=== PATIENT | female | born 1985 | race Caucasian/White ===

== ENCOUNTER 2022-12-06 01:17 | Emergency (ER) | payer OTHER, SELFPAY ==
[2022-12-06 01:23] VITALS: BP 84/50; PULSE 99; RESP 18; O2SAT 97; BMI 17.5
--- NOTE | 2022-12-06 02:06 | XR_ITS ---
The [address] [address] Patient Name: FRANCINE N JOCE MRN: [facility]:[id number] date: 1985 Sex: F Assigned Patient Location: ER Current Patient Location: ER Accession/Order Number: [id number] Exam Date: 12/06/2022 02:28 Report Date: 12/06/2022 04:51 At the request of: ALESSANDRA BENTLEY Procedure: XR hand LT min 3V EXAM: XR hand LT min 3V 12/06/2022 2:28 AM EDT OH001 CLINICAL STATEMENT: pain COMPARISON: No prior studies are available at the time of dictation. TECHNIQUE: 3 views AP, oblique and lateral views of the left hand are submitted. FINDINGS: The osseous structures are intact and in anatomic alignment. There is no acute fracture and/or dislocation. The joint spaces are preserved. Small subchondral cystic changes of the scaphoid and capitate. Soft tissues are unremarkable. Bone mineralization is within normal limits for the patient's age. IMPRESSION: No acute fracture and/or dislocation. Small subchondral cystic changes of the scaphoid and capitate. Electronically authenticated by: EMILIANA MUNIZ Date: 12/06/2022 04:51
--- NOTE | 2022-12-06 02:06 | CT_ITS ---
The [address] [address] Patient Name: FRANCINE N JOCE MRN: [facility]:[id number] date: 1985 Sex: F Assigned Patient Location: ER Current Patient Location: ER Accession/Order Number: [id number] Exam Date: 12/06/2022 02:28 Report Date: 12/06/2022 04:49 At the request of: ALESSANDRA BENTLEY Procedure: CT cervical spine wo con EXAM: CT cervical spine wo con HISTORY: pain COMPARISON: None. TECHNIQUE: Axial CT images of the cervical spine were obtained without intravenous contrast administration. Reformatted images in coronal and sagittal planes were then acquired using the axial source data. Automated dose lowering techniques and/or adjustment according to patient size were utilized for this examination. FINDINGS: Mild straightening of the normal cervical lordotic curvature. Vertebral body heights are preserved. The dens and atlantodens interval is intact. Normal alignment of the facets visualized. The ring of C1 is intact. The odontoid process is intact. No acute fractures are visualized. Posterior elements are intact. Prevertebral soft tissues appear unremarkable. Sclerotic lesion noted along the right posterior aspect of the C2 vertebral body likely representing a bone island and measures 6.6 mm. Cervical spine alignment is maintained without evidence for spondylolisthesis. The intervertebral disc spaces are grossly preserved. No evidence to suggest high-grade central canal or neuroforaminal narrowing within the cervical spine. The imaged lung apices are clear. IMPRESSION: 1. No acute fracture or traumatic malalignment. Electronically authenticated by: NANCY FAM Date: 12/06/2022 04:49
--- NOTE | 2022-12-06 02:06 | XR_ITS ---
The [address] [address] Patient Name: FRANCINE N JOCE MRN: [facility]:[id number] date: 1985 Sex: F Assigned Patient Location: ER Current Patient Location: ER Accession/Order Number: [id number] Exam Date: 12/06/2022 02:28 Report Date: 12/06/2022 04:47 At the request of: ALESSANDRA BENTLEY Procedure: XR forearm RT 2V EXAM: XR forearm RT 2V 12/06/2022 2:28 AM EDT OH001 CLINICAL STATEMENT: pain COMPARISON: No prior studies are available at the time of dictation. TECHNIQUE: AP and lateral views of the right forearm are submitted. FINDINGS: The osseous structures are intact and in anatomic alignment. There is no acute fracture and/or dislocation. The joint spaces are preserved. Soft tissues are unremarkable. Bone mineralization is within normal limits for the patient's age. IMPRESSION: Unremarkable forearm radiograph. Electronically authenticated by: EMILIANA MUNIZ Date: 12/06/2022 04:47
--- NOTE | 2022-12-06 02:06 | XR_ITS ---
The [address] [address] Patient Name: FRANCINE N JOCE MRN: [facility]:[id number] date: 1985 Sex: F Assigned Patient Location: ER Current Patient Location: ER Accession/Order Number: [id number] Exam Date: 12/06/2022 02:28 Report Date: 12/06/2022 04:40 At the request of: ALESSANDRA BENTLEY Procedure: XR chest 1V EXAM: XR chest 1V 12/06/2022 2:28 AM EDT OH001 CLINICAL STATEMENT: pain COMPARISON: No prior studies are available at the time of dictation. TECHNIQUE: Single AP radiograph of the chest is submitted. FINDINGS: There is no acute airspace disease. The cardiac silhouette is normal. The costophrenic recesses are sharp. No pneumothorax. The bony elements are unremarkable. IMPRESSION: No acute cardiopulmonary process. Electronically authenticated by: EMILIANA MUNIZ Date: 12/06/2022 04:40
--- NOTE | 2022-12-06 02:06 | XR_ITS ---
The [address] [address] Patient Name: FRANCINE N JOCE MRN: [facility]:[id number] date: 1985 Sex: F Assigned Patient Location: ER Current Patient Location: ER Accession/Order Number: [id number] Exam Date: 12/06/2022 02:28 Report Date: 12/06/2022 04:53 At the request of: ALESSANDRA BENTLEY Procedure: XR wrist RT min 3V EXAM: XR wrist RT min 3V 12/06/2022 2:28 AM EDT OH001 CLINICAL STATEMENT: pain COMPARISON: No prior studies are available at the time of dictation. TECHNIQUE: AP and lateral views of the right wrist are submitted. FINDINGS: The osseous structures are intact and in anatomic alignment. There is no acute fracture and/or dislocation. The joint spaces are preserved. Soft tissues are unremarkable. Bone mineralization is within normal limits for the patient's age. IMPRESSION: Unremarkable wrist radiograph. Electronically authenticated by: EMILIANA MUNIZ Date: 12/06/2022 04:53
--- NOTE | 2022-12-06 02:06 | CT_ITS ---
The [address] [address] Patient Name: FRANCINE N JOCE MRN: [facility]:[id number] date: 1985 Sex: F Assigned Patient Location: ER Current Patient Location: ER Accession/Order Number: [id number] Exam Date: 12/06/2022 02:28 Report Date: 12/06/2022 04:56 At the request of: ALESSANDRA BENTLEY Procedure: CT head/brain wo con EXAM: CT head/brain wo con HISTORY: pain COMPARISON: None. TECHNIQUE: Axial CT images of the brain were obtained without contrast. Dose reduction techniques were achieved by using automated exposure control and/or adjustment of mA and/or kV according to patient size and/or use of iterative reconstruction technique. FINDINGS: Brain parenchyma: No mass effect or midline shift is seen. Sevilla-white differentiation is maintained. No findings suspicious for intracranial hemorrhage. No findings suggesting acute stroke. Ventricles and extra-axial spaces: Ventricles are concordant with sulci. No findings suggesting hydrocephalus. Visualized paranasal sinuses: No findings suggesting acute sinusitis. Mastoid air cells: Clear. Included portions of the orbits:Included portions of the orbits with no evidence of fracture or other acute pathology. Bones: No fracture is seen. IMPRESSION: 1. No acute intracranial process visualized. Electronically authenticated by: NANCY FAM Date: 12/06/2022 04:56
--- NOTE | 2022-12-06 02:08 | ED.FALL1 ---
HPI - Fall General Chief Complaint: Head Injury Stated Complaint: UPPER EXTREMITY INJURY LEFT HAND Time Seen by Provider: 12/06/22 01:37 Source: patient Mode of arrival: walk-in Limitations: no limitations History of Present Illness HPI Narrative: patient fell at work. States she slipped on wet floor and struck her head and her upper back. pain of her right wrist and elbow and also injury to finger left hand. No LOC. No nausea or vomiting . No weakness or her extremities. No complaint of chestpain or abdominal pain Onset (ago): hour(s) Location of injury - extremities: Right: forearm and Bilateral: hand Related Data Home Medications Medication Instructions Recorded Confirmed citalopram 10 mg tablet mg 12/06/22 dicyclomine 10 mg capsule mg 12/06/22 hydroxyzine HCl 25 mg tablet mg 12/06/22 ondansetron 4 mg disintegrating mg 12/06/22 tablet prednisone 10 mg tablet mg 12/06/22 Allergies Allergy/AdvReac Type Severity Reaction Status Date / Time NSAIDS (Non-Steroidal AdvReac Intermediate Verified 12/06/22 01:33 Anti-Inflamma Review of Systems ROS Status of ROS 10 or more systems reviewed and unremarkable except as noted in history and below [facility] PFS Social History Smoking status: Current some day smoker Exam Constitutional Vital Signs - 24 hr 12/06/22 01:23 Pulse Rate [Monitor] 99 H Respiratory Rate 18 Blood Pressure [Right Arm] 84/50 L Pulse Oximetry 97 Oxygen Delivery Method Room Air [facility] Common normals: normocephalic Other: minor contusion scalp Eye Common normals: PERRL, EOMs intact bilaterally and conjunctivae normal Neck & C-Spine Common normals: full ROM, no lymphadenopathy and supple Chest Common normals: inspection of chest normal and palpation of chest normal Respiratory Common normals: normal respiratory effort, no use of accessory muscles and clear to auscultation bilaterally Cardio Common normals: regular rate, regular rhythm and S1 normal heart sound GI Common normals: Normal to inspection, nondistended, normoactive bowel sounds present and soft to palpation Common normals: no CVA tenderness Extremity Common normals: normal to inspection and no joint enlargement Other: erythematous contusion volar right wrist. mild swelling left middle finger Neuro Common normals: oriented x3, CN's II-XII intact bilaterally, moves all extremities and no focal motor deficits Psych Common normals: mental status grossly normal and thought process normal Appearance: grossly normal Course Vital Signs Vital signs: Vital Signs Pulse Rate 99 H 12/06/22 01:23 Respiratory Rate 18 12/06/22 01:23 Blood Pressure 84/50 L 12/06/22 01:23 Pulse Oximetry 97 12/06/22 01:23 Oxygen Delivery Method Room Air 12/06/22 01:23 Pulse Rate 99 H 12/06/22 01:23 Respiratory Rate 18 12/06/22 01:23 Blood Pressure 84/50 L 12/06/22 01:23 Pulse Oximetry 97 12/06/22 01:23 Oxygen Delivery Method Room Air 12/06/22 01:23 MDM - Fall MDM Narrative Medical decision making narrative: patient fell at work. struck her head and injured her upper back, left middle finger right wrist and elbow. Has mild swelling of the LMF. diagostic studies all unremarkable . No acute findings. Patient informed of the above and discharged home Discharge Plan Discharge Chief Complaint: Head Injury Clinical Impression: Minor head injury, Contusion, Finger sprain Patient Disposition: Home, Self-Care Prescriptions / Home Meds: No Action prednisone 10 mg tablet citalopram 10 mg tablet hydroxyzine HCl 25 mg tablet ondansetron 4 mg tablet,disintegrating dicyclomine 10 mg capsule Instructions: Head Injury (ED), Contusion in Adults (ED), Finger Sprain (ED) Stand Alone Forms: Portal Instructions Referrals: Physician,Non-Staff, MD [Primary Care Provider] - 1 week
== END 2022-12-06 05:38 | disposition home or self-care (01) ==
PROVIDERS: Emergency Provider Internal Medicine
DX: S09.90XA Unspecified injury of head, initial encounter (principal); S00.03XA Contusion of scalp, initial encounter; W01.0XXA Fall on same level from slipping, tripping and stumbling without subsequent striking against object, initial encounter; S63.613A Unspecified sprain of left middle finger, initial encounter; S60.211A Contusion of right wrist, initial encounter
CPT/HCPCS: 70450; 71045; 72125; 73090; 73110; 73130; 99284

== ENCOUNTER 2024-09-11 16:14 | Outpatient (REF) | payer OTHER, SELFPAY ==
[2024-09-11 16:54] LABS: Basophils Absolute Auto 0.1 10^3/uL (0.0-0.1); Basophils Percent Auto 0.8 % (0.2-2.0); Eosinophils Absolute Auto 0.1 10^3/uL (0.0-0.7); Eosinophils Percent Auto 1.9 % (0.9-7.0); Hematocrit 33.5 % (36.0-48.0); Hemoglobin 10.8 g/dL (12.0-16.0); Immature Granulocytes Abs Auto 0.02 10^3/uL (0.00-0.03); Immature Granulocytes Pct Auto 0.3 % (0.0-0.5); Lymphocytes Absolute Auto 1.3 10^3/uL (1.2-3.8); Mean Corpuscular HGB Conc 32.2 g/dL (29.9-35.2); Mean Corpuscular Hemoglobin 28.9 pg (26.7-34.0); Mean Corpuscular Volume 89.6 fL (81.0-99.0); Monocytes Absolute Auto 0.7 10^3/uL (0.3-0.8); Monocytes Percent Auto 10.1 % (1.7-12.0); Neutrophils Absolute Auto 4.3 10^3/uL (1.4-6.5); Neutrophils Percent Auto 66.9 % (43.0-75.0); Platelet Count 314 10^3/uL (150-450); Red Blood Count 3.74 10^6/uL (4.20-5.40); Red Cell Distribution Width 15.2 % (11.0-15.0); White Blood Count 6.4 10^3/uL (4.0-11.0)
[2024-09-11 17:16] LABS: Alanine Aminotransferase 61 U/L (14-59); Albumin Globulin Ratio 0.8; Albumin Level 3.6 g/dL (3.4-5.0); Alkaline Phosphatase 161 U/L (46-116); Anion Gap 13.6; Aspartate Amino Transferase 38 U/L (15-37); BUN Creatinine Ratio 32.9; Bilirubin Total 0.5 mg/dL (0.2-1.0); Calcium 10.1 mg/dL (8.5-10.1); Carbon Dioxide 29.2 mmol/L (21.0-32.0); Chloride 98 mmol/L (98-107); Estimated GFR (African America >60 (>=60 mL/min/1.73m^2); Estimated GFR (Non-African Ame >60 (>=60 mL/min/1.73m^2); Globulin 4.7 g/dL; Glucose 96 mg/dL (74-106); Magnesium 2.2 mg/dL (1.8-2.4); Phosphorus 4.6 mg/dL (2.6-4.7); Potassium 3.8 mmol/L (3.5-5.1); Sodium 137 mmol/L (136-145); Total Protein 8.3 g/dL (6.4-8.2)
== END 2024-09-11 16:15 | disposition home or self-care (01) ==
LOC: LAB 16:14
PROVIDERS: PCP Student in an Organized Health Care Education/Training Program; Visit Provider Student in an Organized Health Care Education/Training Program
DX: E43 Unspecified severe protein-calorie malnutrition (principal); K50.812 Crohn's disease of both small and large intestine with intestinal obstruction
CPT/HCPCS: 36415; 80053; 83735; 84100; 85025

== ENCOUNTER 2024-10-11 15:17 | Outpatient (REF) | payer OTHER, SELFPAY ==
[2024-10-11 15:32] LABS: Basophils Percent Auto 0.3 % (0.2-2.0); Eosinophils Absolute Auto 0.1 10^3/uL (0.0-0.7); Eosinophils Percent Auto 1.8 % (0.9-7.0); Hematocrit 35.8 % (36.0-48.0); Hemoglobin 11.5 g/dL (12.0-16.0); Immature Granulocytes Abs Auto 0.01 10^3/uL (0.00-0.03); Immature Granulocytes Pct Auto 0.1 % (0.0-0.5); Lymphocytes Percent Auto 13.3 % (20.5-60.0); Mean Corpuscular HGB Conc 32.1 g/dL (29.9-35.2); Mean Corpuscular Hemoglobin 29.5 pg (26.7-34.0); Mean Corpuscular Volume 91.8 fL (81.0-99.0); Mean Platelet Volume 11.1 fL (9.5-13.5); Monocytes Absolute Auto 0.4 10^3/uL (0.3-0.8); Monocytes Percent Auto 5.3 % (1.7-12.0); Neutrophils Percent Auto 79.2 % (43.0-75.0); Platelet Count 273 10^3/uL (150-450); Red Cell Distribution Width 14.4 % (11.0-15.0); White Blood Count 7.6 10^3/uL (4.0-11.0)
[2024-10-11 15:46] LABS: Alanine Aminotransferase 33 U/L (14-59); Albumin Globulin Ratio 0.9; Albumin Level 3.5 g/dL (3.4-5.0); Alkaline Phosphatase 109 U/L (46-116); Anion Gap 12.6; Aspartate Amino Transferase 18 U/L (15-37); BUN Creatinine Ratio 48.3; Bilirubin Total 0.3 mg/dL (0.2-1.0); Carbon Dioxide 28.2 mmol/L (21.0-32.0); Chloride 102 mmol/L (98-107); Estimated GFR (African America >60 (>=60 mL/min/1.73m^2); Estimated GFR (Non-African Ame >60 (>=60 mL/min/1.73m^2); Globulin 4.1 g/dL; Glucose 89 mg/dL (74-106); Magnesium 1.8 mg/dL (1.8-2.4); Potassium 3.8 mmol/L (3.5-5.1); Sodium 139 mmol/L (136-145); Total Protein 7.6 g/dL (6.4-8.2)
== END 2024-10-11 15:18 | disposition home or self-care (01) ==
LOC: LAB 15:17
PROVIDERS: PCP Student in an Organized Health Care Education/Training Program; Visit Provider Student in an Organized Health Care Education/Training Program
DX: K50.812 Crohn's disease of both small and large intestine with intestinal obstruction (principal); E43 Unspecified severe protein-calorie malnutrition; D62 Acute posthemorrhagic anemia; Z43.2 Encounter for attention to ileostomy
CPT/HCPCS: 36415; 80053; 83735; 84100; 85025

== ENCOUNTER 2024-10-23 15:23 | Outpatient (REF) | payer OTHER, SELFPAY ==
[2024-10-23 16:33] LABS: Basophils Percent Auto 0.8 % (0.2-2.0); Eosinophils Absolute Auto 0.2 10^3/uL (0.0-0.7); Eosinophils Percent Auto 3.6 % (0.9-7.0); Hematocrit 38.2 % (36.0-48.0); Hemoglobin 12.2 g/dL (12.0-16.0); Immature Granulocytes Abs Auto 0.01 10^3/uL (0.00-0.03); Immature Granulocytes Pct Auto 0.2 % (0.0-0.5); Lymphocytes Absolute Auto 1.3 10^3/uL (1.2-3.8); Lymphocytes Percent Auto 24.7 % (20.5-60.0); Mean Corpuscular HGB Conc 31.9 g/dL (29.9-35.2); Mean Corpuscular Hemoglobin 29.3 pg (26.7-34.0); Mean Corpuscular Volume 91.6 fL (81.0-99.0); Mean Platelet Volume 11.3 fL (9.5-13.5); Monocytes Absolute Auto 0.4 10^3/uL (0.3-0.8); Monocytes Percent Auto 7.7 % (1.7-12.0); Neutrophils Absolute Auto 3.4 10^3/uL (1.4-6.5); Platelet Count 224 10^3/uL (150-450); Red Blood Count 4.17 10^6/uL (4.20-5.40); White Blood Count 5.3 10^3/uL (4.0-11.0)
[2024-10-23 16:47] LABS: Alanine Aminotransferase 38 U/L (14-59); Albumin Globulin Ratio 0.9; Albumin Level 3.6 g/dL (3.4-5.0); Alkaline Phosphatase 100 U/L (46-116); Anion Gap 11.5; Aspartate Amino Transferase 23 U/L (15-37); BUN Creatinine Ratio 34.8; Bilirubin Total 0.3 mg/dL (0.2-1.0); Calcium 9.3 mg/dL (8.5-10.1); Carbon Dioxide 29.7 mmol/L (21.0-32.0); Chloride 104 mmol/L (98-107); Estimated GFR (African America >60 (>=60 mL/min/1.73m^2); Estimated GFR (Non-African Ame >60 (>=60 mL/min/1.73m^2); Globulin 3.9 g/dL; Glucose 87 mg/dL (74-106); Phosphorus 4.8 mg/dL (2.6-4.7); Potassium 4.2 mmol/L (3.5-5.1); Sodium 141 mmol/L (136-145); Total Protein 7.5 g/dL (6.4-8.2)
== END 2024-10-23 15:24 | disposition home or self-care (01) ==
LOC: LAB 15:23
PROVIDERS: PCP Student in an Organized Health Care Education/Training Program; Visit Provider Student in an Organized Health Care Education/Training Program
DX: E43 Unspecified severe protein-calorie malnutrition (principal); K50.812 Crohn's disease of both small and large intestine with intestinal obstruction
CPT/HCPCS: 36415; 80053; 83735; 84100; 85025

== ENCOUNTER 2024-11-06 15:54 | Outpatient (REF) | payer OTHER, SELFPAY ==
[2024-11-06 16:31] LABS: Basophils Percent Auto 0.5 % (0.2-2.0); Eosinophils Absolute Auto 0.3 10^3/uL (0.0-0.7); Eosinophils Percent Auto 4.2 % (0.9-7.0); Hematocrit 36.3 % (36.0-48.0); Hemoglobin 11.5 g/dL (12.0-16.0); Immature Granulocytes Abs Auto 0.02 10^3/uL (0.00-0.03); Immature Granulocytes Pct Auto 0.3 % (0.0-0.5); Lymphocytes Absolute Auto 1.4 10^3/uL (1.2-3.8); Lymphocytes Percent Auto 22.1 % (20.5-60.0); Mean Corpuscular HGB Conc 31.7 g/dL (29.9-35.2); Mean Corpuscular Hemoglobin 28.6 pg (26.7-34.0); Mean Corpuscular Volume 90.3 fL (81.0-99.0); Mean Platelet Volume 11.2 fL (9.5-13.5); Monocytes Absolute Auto 0.5 10^3/uL (0.3-0.8); Monocytes Percent Auto 7.6 % (1.7-12.0); Neutrophils Absolute Auto 4.1 10^3/uL (1.4-6.5); Neutrophils Percent Auto 65.3 % (43.0-75.0); Platelet Count 213 10^3/uL (150-450); Red Blood Count 4.02 10^6/uL (4.20-5.40); Red Cell Distribution Width 14.2 % (11.0-15.0); White Blood Count 6.2 10^3/uL (4.0-11.0)
[2024-11-06 17:29] LABS: Alanine Aminotransferase 32 U/L (14-59); Albumin Globulin Ratio 0.9; Albumin Level 3.3 g/dL (3.4-5.0); Alkaline Phosphatase 87 U/L (46-116); Anion Gap 12.1; Aspartate Amino Transferase 15 U/L (15-37); BUN Creatinine Ratio 43.9; Bilirubin Total 0.2 mg/dL (0.2-1.0); Carbon Dioxide 28.2 mmol/L (21.0-32.0); Chloride 102 mmol/L (98-107); Estimated GFR (African America >60 (>=60 mL/min/1.73m^2); Estimated GFR (Non-African Ame >60 (>=60 mL/min/1.73m^2); Globulin 3.7 g/dL; Glucose 85 mg/dL (74-106); Phosphorus 4.7 mg/dL (2.6-4.7); Potassium 4.3 mmol/L (3.5-5.1); Sodium 138 mmol/L (136-145)
== END 2024-11-06 15:55 | disposition home or self-care (01) ==
LOC: LAB 15:54
PROVIDERS: PCP Student in an Organized Health Care Education/Training Program; Visit Provider Student in an Organized Health Care Education/Training Program
DX: E43 Unspecified severe protein-calorie malnutrition (principal); K50.812 Crohn's disease of both small and large intestine with intestinal obstruction
CPT/HCPCS: 36415; 80053; 83735; 84100; 85025

== ENCOUNTER 2024-11-13 16:35 | Outpatient (REF) | payer OTHER, SELFPAY ==
[2024-11-13 17:56] LABS: C Reactive Protein <0.50 mg/dL (<=0.50)
[2024-11-16 07:09] LABS: Copper Level 127 ug/dL (80-158); Zinc Level 68 ug/dL (44-115)
== END 2024-11-13 16:36 | disposition home or self-care (01) ==
LOC: LAB 16:35
PROVIDERS: PCP Student in an Organized Health Care Education/Training Program; Visit Provider Student in an Organized Health Care Education/Training Program
DX: E43 Unspecified severe protein-calorie malnutrition (principal); K50.812 Crohn's disease of both small and large intestine with intestinal obstruction
CPT/HCPCS: 36415; 82495; 82525; 83785; 84255; 84630; 86140

== ENCOUNTER 2024-11-20 15:46 | Outpatient (REF) | payer OTHER, SELFPAY ==
[2024-11-20 16:19] LABS: Basophils Percent Auto 0.3 % (0.2-2.0); Eosinophils Absolute Auto 0.1 10^3/uL (0.0-0.7); Eosinophils Percent Auto 2.4 % (0.9-7.0); Hematocrit 35.8 % (36.0-48.0); Immature Granulocytes Abs Auto 0.01 10^3/uL (0.00-0.03); Immature Granulocytes Pct Auto 0.2 % (0.0-0.5); Lymphocytes Absolute Auto 1.6 10^3/uL (1.2-3.8); Lymphocytes Percent Auto 27.7 % (20.5-60.0); Mean Corpuscular HGB Conc 33.5 g/dL (29.9-35.2); Mean Corpuscular Hemoglobin 29.3 pg (26.7-34.0); Mean Corpuscular Volume 87.3 fL (81.0-99.0); Mean Platelet Volume 10.9 fL (9.5-13.5); Monocytes Absolute Auto 0.5 10^3/uL (0.3-0.8); Neutrophils Absolute Auto 3.5 10^3/uL (1.4-6.5); Neutrophils Percent Auto 60.4 % (43.0-75.0); Platelet Count 203 10^3/uL (150-450); Red Cell Distribution Width 13.5 % (11.0-15.0); White Blood Count 5.8 10^3/uL (4.0-11.0)
[2024-11-20 16:31] LABS: Alanine Aminotransferase 54 U/L (14-59); Albumin Globulin Ratio 0.9; Albumin Level 3.3 g/dL (3.4-5.0); Alkaline Phosphatase 110 U/L (46-116); Aspartate Amino Transferase 19 U/L (15-37); BUN Creatinine Ratio 40.3; Bilirubin Total 0.4 mg/dL (0.2-1.0); Calcium 8.8 mg/dL (8.5-10.1); Carbon Dioxide 26.5 mmol/L (21.0-32.0); Chloride 102 mmol/L (98-107); Estimated GFR (African America >60 (>=60 mL/min/1.73m^2); Estimated GFR (Non-African Ame >60 (>=60 mL/min/1.73m^2); Globulin 3.7 g/dL; Glucose 94 mg/dL (74-106); Magnesium 2.1 mg/dL (1.8-2.4); Phosphorus 3.4 mg/dL (2.6-4.7); Potassium 4.5 mmol/L (3.5-5.1); Sodium 137 mmol/L (136-145)
== END 2024-11-20 15:47 | disposition home or self-care (01) ==
LOC: LAB 15:46
PROVIDERS: PCP Student in an Organized Health Care Education/Training Program; Visit Provider Student in an Organized Health Care Education/Training Program
DX: E43 Unspecified severe protein-calorie malnutrition (principal); K50.812 Crohn's disease of both small and large intestine with intestinal obstruction
CPT/HCPCS: 36415; 80053; 83735; 84100; 85025

== ENCOUNTER 2025-04-12 16:38 | Outpatient (REF) | payer OTHER, SELFPAY ==
--- OUTSIDE RECORDS SUMMARY | 2025-04-12 16:52 | XMS_ITS | CCD ---
Author Organization [facility] Care Team Providers Care Inside Sales Advisor Name Role Phone No, Physician Unavailable Unavailable No, Physician Primary Care Provider UnavailAustin Kapoor Unavailable JOSEFINA, PHYSICIAN Primary Care Unavailable ASHLEY AL Attending Unavailable ASHLEY AL Admitting Unavailable ASHLEY AL Referring Unavailable NO, PHYSICIAN Primary Care Unavailable Josefina, Physician Primary Care Provider UnavailAustin Kapoor Unavailable Abdiel Smithahim Ali Primary Care Provider Francine Guzman Unavailable Unavailable Austin Dc MD Unavailable [phone] Sarah TALAMANTES, Abdiel Gamez [facility] Francine Ruiz Unavailable Unavailable ABDIEL SMITHAHIM ALI Attending Unava ilable SMITH MEADOWS MENJIVAR ALI Primary Care Unava ilable FRANCINE GUZMAN Attending Unavailable SMITHSLOANE AGUIRREMEADOWS MENJIVAR ALI Primary Care Unava ilable SMITH, MEADOWS MENJIVAR ALI Primary Care Unava ilable SLOANE SMITHHAMMAD MENJIVAR ALI Attending Unava ilable SMITH MEADOWS MENJIVAR ALI Primary Care Unava ilable SLOANE SMITHHAMMAD MENJIVAR ALI Attending Unava ilable NO, PHYSICIAN Primary Care Unavailable CANDY CARDENAS Attending Unavailable CANDY CARDENAS Attending Unavailable SMITH, MEADOWS MENJIVAR ALI Primary Care Unava ilable SMITH, MEADOWS MENJIVAR ALI Primary Care Unava ilable SARAH MEADOWS MENJIVAR ALI Attending Unava ilable SMITH, MEADOWS MENJIVAR ALI Primary Care Unava ilable SMITH, MEADOWS MENJIVAR ALI Attending Unava ilable SMITH, MEADOWS MENJIVAR ALI Primary Care Unava ilable SMITH, MEADOWS MENJIVAR ALI Attending Unava ilable SMITH, MEADOWS MENJIVAR ALI Primary Care Unava ilable SMITH, MEADOWS MENJIVAR ALI Attending Unava ilable SMITH, MEADOWS MENJIVAR ALI Primary Care Unava ilable Austin Dc MD Unavailable [phone] Sarah TALAMANTES, Abdiel Patinoahim Ali Primary Care Provi xavier Thomas PIMENTELW, Francine Unavailable Unavailable JUAN SAHNI Attending Unavailable NO, PHYSICIAN Primary Care Unavailable [facility] Consulting UnavaÁNGEL Michele Admitting Unavailable ED, AKEEK SANAT Consulting Unavailable KEVIN CROCKETT Consulting Unavaila ble SMITH, MEADOWS MENJIVAR ALI Attending Unava ilable SMITH, MEADOWS MENJIVAR ALI Referring Unava ilable SMITH, MEADOWS MENJIVAR ALI Primary Care Unava ilable SMITH, MEADOWS MENJIVAR ALI Primary Care Unava ilable ED, AKEEK SANAT Admitting Unavailable SMITH, MEADOWS MENJIVAR ALI Primary Care Unava ilable ED, AKEEK SANAT Admitting Unavailable SMITH, MEADOWS MENJIVAR ALI Primary Care Unava ilable ED, AKEEK SANAT Admitting Unavailable SMITH, MEADOWS MENJIVAR ALI Primary Care Unava ilable ED, AKEEK SANAT Admitting Unavailable SMITH, MEADOWS MENJIVAR ALI Primary Care Unava ilable Sarah TALAMANTES, Abdiel Patinoahim Ali Primary Care Provi xavier Thomas TEIXEIRA, Francine Unavailable Unavailable NO, PHYSICIAN Primary Care Unavailable SCAR MONTANEZ Admitting Unavaila ble SCAR MONTANEZ Attending Unavaila ble [facility] GENER[facility] Consulting Hillary London Sanderson Attending Unavailable DR JELLY OLIVA Admitting Unavailable TIMMIS, DR REAVES Attending Unavailable REQUEST, NONE LISTED Primary Care Unavaila ble TIMMIS, DR REAVES Consulting Unavailable TIMMIS, DR REAVES Admitting Unavailable TIMMIS, DR REAVES Attending Unavailable REQUEST, NONE LISTED Primary Care Unavaila ble TIMMIS, DR REAVES Consulting Unavailable OLIVA, KEILA Consulting Unavailable SHARP, SURJIT Consulting Unavailable COLLINS II, NIMISHA Consulting Unavailable REQUEST, NONE LISTED Primary Care Unavaila ble REINECK, DR BUBBA Lee Admitting Unavailabl e REINECK, DR BUBBA Lee Attending Unavailabl e REINECK, DR BUBBA Lee Consulting Unavailabl e GRECHNY ., DEMI LOO Consulting Unavailabl e GLATZCHARLIE Consulting Unavailable JORDY HUBER Consulting Unavailable JORDY HUBER Admitting Unavailable JORDY HUBER Attending Unavailable REQUEST, NONE LISTED Primary Care Unavaila ble MCDONALD, VINAYA Consulting Unavailable NO FAMILY, PHYSICIAN Primary Care Provider Unava ilable DO Ean Jacques Emergency Provider [phone] Ambika Dalia Unavailable Arthur Mcclain Unavailable DO Ambika Dalia A Primary Care Provider DO Ambika Dalia A Attending Provider DO Arthur Mcclain A Attending Provider [phone] Jennifer Brody Unavailable MD Jennifer Brody Attending Provider Ivonne Martinez Unavailable AppleDO Dalia A Primary Care Provider [phone] DO Arthur Mcclain A Attending Provider [phone] Ambika DO Dalia A Attending Provider Ambika DO Dalia A Primary Care Provider DO Arthur Mcclain A Attending Provider Apple DO Dalia A Primary Care Provider AppleDO Dalia A Attending Provider [phone] Unavailable Primary Care Provider Unavailabl e NO PCP, NO PCP Primary Care Unavailable EV REDMAN Attending Unavailable Apple DO Dalia A Primary Care Provider [phone] MD Jennifer Brody Attending Provider APPLE, DALIA A Referring Unavailable APPLE, DALIA A Primary Care Unavailable AMI JETER Attending Unavailable AMI JETER Referring Unavailable APPLE, DALIA A Primary Care Unavailable NO PCP, NO PCP Primary Care Unavailable MARIXA BARRIENTOS Attending Unavailable DIMAS, AIJAZ Admitting Unavailable DIMAS, AIJAZ Attending Unavailable Apple DO, Dalia A Primary Care Provider [phone] Unavailable Primary Care Provider UnavailMaru Enciso MD Attending Provider [phone] No Pcp, No Pcp Primary Care Provider Unavailabl e Asaoctavio Imoctavio Admitting Unavailable Jennifer Brody Attending Unavailable Apple, Dalia A Primary Care Unavailable Dimas, Aijaz A Admitting Unavailable Dimas, Aijaz A Attending Unavailable Dalia Apple MD A Primary Care Provider [phone] YAZMIN HIGGINS Consulting Unavailable HARDY GAMEZ Attending Unavailable MAI MERCADOIN Admitting Unavailable DIMAS, AIJAZ Consulting Unavailable ALIX ACOSTA Consulting Unavaila ble JAXSON SCANLON Consulting Unavailable ELIZABETH MARCELO Consulting Unavailable ELOY ANDERS Admitting Unavailable NEREYDA LUCAS Attending Unavail able APPLE, DALIA A Primary Care Unavailable DAPHNEY WALSH Consulting Unavailable ALIX ACOSTA Consulting Unavaila ble AOUAJEN KraftMANJIT T Consulting Unavailable PORFIRIO GARCÍA Admitting Unavailable PORFIRIO GARCÍA Attending Unavailable ISABELLE GANDHI Consulting Unavailable MICHELLE WOODY Attending Unavailable SHAYNA US Attending Unavailable APPLE, DALIA A Primary Care Unavailable GHASSAN ANGULO Admitting Unavailable GHASSAN ANGULO Attending Unavailable BERNA CARRERA Primary Care Unavailable Berna Mike DO Unavailable ARMAND RIOS Attending Unavailable ARACELY LENTZ Referring Unavailable FARTUN CARPIO Attending Unavailable SELF Referring Unavailable BERNADETTE HAMMOND Referring Unavailable ELSY ROUSSEAU Attending Unavailable SOHAM, ELSY Referring Unavailable KIKO FELIZ, ARMAND Attending Unavailable SELF Referring Unavailable SELF Referring Unavailable KIKO FELIZ, ARMAND Referring Unavailable SELF Referring Unavailable MCCAUSLAND, BERNADETTE Referring Unavailable RASHID, KUNZAH Referring Unavailable CHANTEL COTTRELL Attending Unavailable SANKOVIC, OBDULIA Referring Unavailable MARIAM DUPONT E Referring Unavailable MARIAM DUPONT Attending Unavailable ENE BHAGAT Attending Unavailable SOHAM, ELSY Admitting Unavailable SOHAM, ELSY Attending Unavailable LENTZ, MANDEEPK Referring Unavailable SANKOVIC, OBDULIA Attending Unavailable MCCAUS[place], BERNADETTE Referring Unavailable ADAMOWICZ, OBDULIA Attending Unavailable RASHID, KUNZAH Referring Unavailable KIKO FELIZ, ARMAND Referring Unavailable KIKO FELIZ, ARMAND Referring Unavailable TRE BRIDGES Attending Unavailable TIANNA CODY Referring Unavailable SELF Referring Unavailable KIKO FELIZ, ARMAND Referring Unavailable BUBBA JOHNSON Attending Unavailable TRE BRIDGES Attending Unavailable SOHAM, ELSY Referring Unavailable SOHAM, ELSY Referring Unavailable LAINE GUILLEN Attending Unavailable SOHAM, ELSY Referring Unavailable TRE BRIDGES Attending Unavailable MCCAUS[place], BERNADETTE Referring Unavailable MCCA[place], BERNADETTE Referring Unavailable LENTZ, MANDEEPK Referring Unavailable SOHAM, ELSY Referring Unavailable RASHID, KUNZAH Referring Unavailable SELF Referring Unavailable KIAH, SCHIRRON E Referring Unavailable MARIAM DUPONT Attending Unavailable ALIX RIDDLE Referring Unavailable RASHID, KUNZAH Referring Unavailable RASHID, KUNZAH Attending Unavailable SANKOVIC, OBDULIA Referring Unavailable HIRAM PATEL Attending Unavailable LENTZ, MANDEEPK Referring Unavailable LENTZ, MANDEEPK Referring Unavailable ADAMOWICZ, OBDULIA Referring Unavailable BRANDAN, MONET Referring Unavailable KIAH, SCHIRRON E Referring Unavailable KIAH, SCHIRRON E Referring Unavailable KIAH, SCHIRRMARCELO E Attending Unavailable Allergies Allergy Classification Reported Allergen(s) Allergy Type Date of Onset Reaction(s) Facility cow milk allergenic extract (4 sources) cow milk allergenic extract Drug Allergy [address] [facility] Dairy (not specified as lactose intolerance) (2 sources) Milk; Translations: [MILK] Food Allergy 0 [facility] Repository Grains (2 sources) Gluten; Translations: [GLUTEN] Food Allergy 0 [facility] Repository Wheat gluten extract (4 sources) Wheat gluten extract Drug Allergy [address] [facility] Work Phone: (20 sources) cow milk allergenic extract; Translations: [MILK] Drug Allergy 0 Diarrhea [facility] (20 sources) Wheat gluten extract; Translations: [GLUTEN] Drug Allergy [address] [facility] (20 sources) NSAIDs; Translations: [NSAIDS (NON-STEROIDAL ANTI-INFLAMMATO RY DRUG)] Drug allergy (disorder) 2 Other: See Comments [facility] Repository (20 sources) Ibuprofen; Translations: [ibuprofen] Drug Allergy 3 Other: See Comments [facility] (11 sources) Non-steroidal anti-inflammato ry agent Propensity to adverse reactions to drug 2 Other: See Comments [facility] (16 sources) Non-steroidal anti-inflammato ry agent Propensity to adverse reactions to drug 5 Other: See Comments [facility] Medications Current Medications Medication Drug Class(es) Dates Sig (Normalized) Sig (Original) 24 HR upadacitinib 45 MG Extended Release Oral Tablet [Rinvoq] (11 sources) take 45 mg by mouth once daily Rinvoq 45 MG as directed Orally Once a day for 30 days Active Rinvoq 45 MG as directed Orally Active acetaminophen 32 mg/ml oral solution (20 sources) Start: 02-23-2025 take 650 mg by mouth every six hours as needed acetaminophen (TYLENOL) 650 mg/20.3 mL soln Take 20.3 mL by mouth every 6 hours as needed for pain. Do not exceed 5 doses in 24 hours. 02/23/2025 Active Start: 01-02-2025 End: 01-02-2025 take 1 dose by mouth once 650 mg, ORAL, ONCE, 1 dose, On Wed01/02/25 at 1530 Start: 08-07-2024 End: 02-14-2025 take 2 tablets by mouth every six hours as needed acetaminophen (TYLENOL) 500 mg tablet Take 2 tablets by mouth every 6 hours as needed (mild, moderate pain). 30 tablet 08/08/2024 12:15 PM EST 08/07/2024 02/14/2025 Discontinued (Discontinued by Patient) Start: 07-19-2024 acetaminophen (TYLENOL) tablet 650 mg Start: 05-01-2024 acetaminophen (TYLENOL) tablet 650 mg Start: 06-04-2020 End: 06-14-2020 take 2 tablets by mouth every six hours as needed acetaminophen (TYLENOL) 500 MG tablet Take 2 (two) tablets (1,000 mg total) by mouth every 6 (six) hours as needed for pain . 30 tablet 0 06/04/2020 06/14/2020 Active Start: 05-31-2020 End: 06-04-2020 take 1 tablet by mouth every four hours as needed 650 mg, Oral, Every 4 hours PRN, mild pain, fever 100.4 F or greater, headaches, Starting 05/31/20 at 0013 Start: 05-01-2018 End: 05-11-2018 take 2 tablets by mouth every four hours as needed acetaminophen (TYLENOL) 325 MG tablet Take 2 (two) tablets (650 mg total) by mouth every 4 (four) hours as needed. 30 tablet 0 05/01/2018 05/11/2018 Active Start: 04-30-2018 End: 05-01-2018 take 2 tablets by mouth every four hours as needed 0.4 ml adalimumab 100 mg/ml auto-injector (20 sources) Tumor Necrosis Factor Sunshine Start: 07-29-2020 adalimumab 40 mg/0.4 mL PnKt Indications: Crohn's disease of small intestine without complication (HCC) 160 mg on day 1, 80 mg on day 15, 40 mg on day 29 then 40 mg every 14 days. . 4 kit 1 07/29/2020 Active End: 08-18-2023 inject 40 mg by subcutaneous injection once adalimumab (HUMIRA) 40 mg/0.8 mL injection Inject 40 mg under the skin once. 0 08/18/2023 Discontinued (Therapy completed) 200 actuat albuterol 0.09 mg/actuat metered dose inhaler (1 source) beta2-Adrenergic Agonist Start: 09-10-2018 End: 09-17-2018 take 2 puff(s) by inhalation every six hours as needed for wheezing albuterol 90 mcg/actuation inhaler Indications: Bronchitis , Cough Inhale 2 (two) puffs every 6 (six) hours as needed for wheezing . 6.7 g 0 09/10/2018 09/17/2018 Active alteplase (CATHFLO) 2 mg injection (1 source) Start: 08-31-2024 End: 08-31-2024 alteplase (CATHFLO) 2 mg injection Indications: Occlusion of peripherally inserted central catheter (PICC) line, initial encounter (HCC) 4 mL by INTRALUMINAL route one time only for 1 dose. Instill per protocol 2 mg/2 ml into each lumen of double lumen PICC line 4 mL 08/31/2024 08/31/2024 Active amitriptyline hydrochloride 25 mg oral tablet (20 sources) Tricyclic Antidepressant Start: 05-07-2024 End: 07-19-2024 take 1 tablet by mouth once daily amitriptyline (ELAVIL) 25 MG tablet Take 1 tablet by mouth nightly 30 tablet 3 05/09/2024 Active apixaban 5 mg oral tablet (20 sources) Factor Xa Inhibitor Start: 10-01-2024 End: 11-30-2024 take 1 tablet by mouth every twelve hours apixaban (ELIQUIS) 5 mg tab(s) Take 1 tablet by mouth every 12 hours. Please start Eliquis after finishing Lovenox prescription. Patient should start on October 01, 2024. 60 tablet 1 08/30/2024 3:08 PM EST 10/01/2024 11/30/2024 Active Start: 09-06-2024 End: 11-03-2024 take 2 tablets by mouth twice daily, then take 1 tablet by mouth twice daily apixaban (ELIQUIS) 5 mg tab(s) Take 2 tablets (10 mg) by mouth twice daily for 7 days. Then take 1 tablet (5 mg) by mouth twice daily for 23 days 74 tablet 09/06/2024 11/03/2024 Discontinued Start: 08-29-2024 End: 08-29-2024 take 2 tablets by mouth twice daily, then take 1 tablet by mouth twice daily apixaban (ELIQUIS DVT-PE TREAT 30D START) 5 mg (74 tabs) Take 2 tablets (10 mg) by mouth twice daily for 7 days. Then take 1 tablet (5 mg) by mouth twice daily for 23 days 74 tablet 08/29/2024 08/29/2024 Discontinued azaTHIOprine 50 mg oral tablet (20 sources) Purine Antimetabolite Start: 09-02-2020 End: 08-21-2021 take 2 tablets by mouth once daily azaTHIOprine (IMURAN) 50 mg tablet Take 2 (two) tablets (100 mg total) by mouth daily . 60 tablet 11 01/23/2021 02/22/2021 Active Start: 06-18-2020 End: 06-18-2021 azaTHIOprine (IMURAN) 50 mg tablet azithromycin 250 mg oral tablet (1 source) Macrolide Antimicrobial Start: 09-10-2018 End: 09-15-2018 azithromycin (ZITHROMAX) 250 MG tablet Indications: Bronchitis , Cough Take 2 tablets (500 mg) on Day 1, followed by 1 tablet (250 mg) once daily on Days 2 through 5. . 6 tablet 0 09/10/2018 09/15/2018 Active benzonatate 100 mg oral capsule (1 source) Non-narcotic Antitussive Start: 09-10-2018 End: 09-17-2018 take 1 capsule by mouth every six hours as needed benzonatate (TESSALON PERLES) 100 MG capsule Indications: Bronchitis , Cough Take 1 (one) capsule (100 mg total) by mouth every 6 (six) hours as needed . 20 capsule 0 09/10/2018 09/17/2018 Active bisacodyl 10 mg rectal suppository (2 sources) Stimulant Laxative Start: 05-01-2024 Start: 04-03-2024 End: 05-09-2024 bisacodyl 5 MG EC tablet Abraham e as directed for bowel prep/colonoscopy 4 tablet 04/03/2024 05/09/2024 Discontinued (Stop Taking at Discharge) budesonide 3 mg delayed release oral capsule (5 sources) Corticosteroid Start: 08-08-2024 End: 08-31-2024 take 1 capsule by mouth every twenty-four hours budesonide, enteric coated (ENTOCORT EC) 3 mg 24 hr capsule Take 3 capsules by mouth once daily for 23 doses. 69 capsule 08/08/2024 12:15 PM EST 08/08/2024 08/31/2024 Active cephalexin 500 mg oral capsule (2 sources) Cephalosporin Antibacterial Start: 05-26-2023 take 1 capsule by mouth every eight hours Cephalexin 500 MG 1 capsule Orally every 8 hrs for 7 days May, Active cholecalciferol 0.025 mg oral tablet (20 sources) Vitamin D Start: 01-29-2024 take 1 tablet by mouth once daily Cholecalciferol (VITAMIN D) 25 MCG TABS Take 1 tablet by mouth daily 60 tablet 01/29/2024 Active Cholecalciferol, Vitamin D3, (VITAMIN D) 25 mcg (1,000 unit) cap Take 1,000 Units by mouth once daily. Active diazePAM 2 mg oral tablet (8 sources) Benzodiazepine Start: 02-23-2025 End: 03-02-2025 take 1 tablet by mouth every six hours as needed for pain diazePAM (VALIUM) 2 mg tablet Indications: Postoperative pain Take 1 tablet by mouth every 6 hours as needed (pain) for up to 7 days. 28 tablet 02/23/2025 2:47 PM EDT 02/23/2025 03/02/2025 Active Start: 08-30-2024 End: 09-06-2024 diazePAM (VALIUM) 5 mg table t Indications: Post-op pain Take 1 tablet by mouth every 6 hours as needed for muscle spasm or pain for up to 7 days. Do not take oxycodone and valium at the same time. Please spread out these medications by 2-3 hours. 28 tablet 08/30/2024 3:08 PM EST 08/30/2024 09/06/2024 Active Start: 05-03-2024 take 5 mg by mouth e very six hours as needed 5 mg, Oral, EVERY 6 HOURS PRN, Starting on Wed05/03/24 at 1021, Until Discontinued, Anxiety, Agitation, Muscle spasms Start: 05-02-2024 End: 05-02-2024 take 1 dose by mouth once 5 mg, Oral, ONCE, 1 dose, On Wed05/02/24 at 1200 dicyclomine hydrochloride 10 mg oral capsule (20 sources) Anticholinergic Start: 05-07-2024 take 1 capsule by mouth three times daily dicyclomine (BENTYL) 10 MG capsule Take 1 capsule by mouth 3 times daily 120 capsule 3 05/09/2024 Active Start: 01-28-2024 End: 05-09-2024 take 2 capsules by mouth three times daily as needed for pain and muscle spasms dicyclomine (BENTYL) 10 MG capsule Take 2 capsules by mouth 3 times daily as needed (for abdominal pain and spasms , before meals) 120 capsule 3 01/28/2024 05/09/2024 Discontinued (Stop Taking at Discharge) Start: 12-21-2023 take 2 capsules by m outh four times daily as needed Dicyclomine 10 mg capsule Active 20 MG PO Four times daily as needed December 20, 2023 11:00pm Start: 12-21-2023 take 20 mg by mouth four times daily Dicyclomine Active 20 MG PO Four times daily December 21, 2023 12:00am Start: 06-04-2020 End: 07-04-2020 take 1 capsule by mouth four times daily before mealtime dicyclomine (BENTYL) 10 MG capsule Take 1 (one) capsule (10 mg total) by mouth 4 (four) times a day before meals and nightly . 120 capsule 0 06/04/2020 Active take 2 capsules by m outh every six hours Dicyclomine HCl 10 MG 2 capsules Orally Four times a day PRN Active docusate sodium 100 mg oral capsule (1 source) Start: 05-09-2024 End: 05-14-2024 take 1 capsule by mouth twice daily docusate sodium (COLACE) 100 MG capsule Take 1 capsule by mouth 2 times daily for 5 days 10 capsule 05/09/2024 05/14/2024 Active doxycycline hyclate 100 mg oral capsule (1 source) Tetracycline-cl ass Drug Start: 08-18-2023 End: 08-23-2023 take 1 capsule by mouth in the morning, then take 1 capsule by mouth at bedtime doxycycline (VIBRAMYCIN) 100 mg capsule Indications: Infected cyst of skin Take 1 capsule (100 mg total) by mouth in the morning and 1 capsule (100 mg total) before bedtime. Do all this for 5 days. 10 capsule 0 08/18/2023 08/23/2023 Active 1 ml enoxaparin sodium 100 mg/ml prefilled syringe (20 sources) Low Molecular Weight Heparin Start: 02-23-2025 inject 0.975 mL by subcutaneous injection once daily enoxaparin (LOVENOX) 100 mg/mL syrg Inject 0.975 mL subcutaneously once daily. Please inject full contents of syringe daily. 30 each 1 02/23/2025 Active Start: 10-20-2024 End: 02-27-2025 inject 0.625 mL by subcutaneous injection once daily enoxaparin (LOVENOX) 80 mg/0.8 mL Indications: Acute deep vein thrombosis (DVT) of axillary vein of left upper extremity (HCC) , Anticoagulation management encounter , Acute deep vein thrombosis (DVT) of brachial vein of right upper extremity (HCC) Inject 0.625 mL subcutaneously once daily. Inject entire contents of one(1) syringe 12/29/2024 02/27/2025 Suspended Start: 08-31-2024 End: 09-30-2024 inject 72.5 mg by subcutaneous injection every twenty-four hours enoxaparin (LOVENOX) 80 mg/0.8 mL Inject 0.7 mL subcutaneously every 24 hours. Please eject 0.1 mL of fluid from syringe into trash. Inject the remaining fluid into the subcutaneous tissue. 24 mL 08/30/2024 3:08 PM EST 08/31/2024 09/30/2024 Start: 08-29-2024 End: 08-29-2024 inject 47.5 mg by subcutaneous injection every twelve hours enoxaparin (LOVENOX) 60 mg/0.6 mL syrg Inject 0.5 mL subcutaneously every 12 hours. (Please eject 0.1 mL of the syringe into the trash can. Inject remaining 0.5 mL of Lovenox.) 36 mL 2 08/29/2024 08/29/2024 Discontinued Start: 07-20-2024 inject 40 mg by subc utaneous injection once daily 40 mg, SubCUTAneous, DAILY, First dose on Wilma 07/20/24 at 0900, Until Discontinued, Indication of Use: Treatment-DVT/PE, Administer by deep subCUTAneous injection with pt lying down. Alternate injection sites on abdominal wall. Do not rub site after injection. Check with provider prior to any invasive procedure. Start: 05-31-2020 End: 06-04-2020 inject 40 mg by subcutaneous injection once daily 40 mg, Subcutaneous, Daily, First dose on Wed05/31/20 at 0800 Administer in abdomen unless otherwise directed by prescriber. Notify physician if patient refuses. Indication: VTE Prophylaxis Start: 04-30-2018 End: 05-01-2018 enteric contrast (will be provided with radiology test) (5 sources) Start: 09-28-2024 End: 09-29-2024 enteric contrast (will be provided with radiology test) For CT ABD/PEL W IVCON Routine order Administer, As Directed One Time Only, via Oral, Rectal, both Oral and Rectal, Enteric Tube, Stoma or Indwelling Catheter, Enteric Contrast as designated per enteric contrast guidelines 1 Each 09/28/2024 09/29/2024 Active Start: 09-28-2024 End: 09-28-2024 enteric contrast (will be pr ovided with radiology test) For CT ENTEROGRAPHY W IVCON order Administer, As Directed One Time Only, via Oral, Rectal, both Oral and Rectal, Enteric Tube, Stoma or Indwelling Catheter, Enteric Contrast as designated per enteric contrast guidelines. 1 Each 09/28/2024 09/28/2024 Discontinued Start: 08-04-2024 End: 08-05-2024 enteric contrast (will be pr ovided with radiology test) Indications: Crohn's disease of both small and large intestine with abscess (HCC) For CT ENTEROGRAPHY W IVCON order Administer, As Directed One Time Only, via Oral, Rectal, both Oral and Rectal, Enteric Tube, Stoma or Indwelling Catheter, Enteric Contrast as designated per enteric contrast guidelines. 1 Each 08/04/2024 08/05/2024 ertapenem (INVANZ) infusion (1 source) Start: 07-29-2024 End: 08-26-2024 ertapenem (INVANZ) infusion Infuse 1,000 mg intravenously every 24 hours for 28 days 28 days then get a repeat CTA ;look for resolution of the abscess Cbc diff creat weekly - no ;line draws 28 g 07/29/2024 08/26/2024 Active fluconazole 150 mg oral tablet (6 sources) Azole Antifungal Start: 05-26-2023 Fluconazole 1 50 MG 1 tablet Orally once, can repeat dosage in 2-3 days if symptoms not improved for 2 days May, Active Start: 06-12-2020 End: 06-22-2020 take 1 tablet by mouth once daily fluconazole (Diflucan) 200 MG tablet Indications: Yeast infection Take 1 (one) tablet (200 mg total) by mouth daily for 10 days . 10 tablet 0 06/12/2020 06/22/2020 Active hydrOXYzine hydrochloride 25 mg oral tablet (20 sources) Antihistamine Start: 07-21-2024 End: 08-20-2024 take 25 mg by mouth once daily as needed for sleep 25 mg, Oral, NIGHTLY PRN, Starting on Wed07/21/24 at 2100, Until 08/20/24 at 2059, sleep Start: 12-27-2023 End: 04-22-2024 take 1 tablet by mouth every six hours as needed hydrOXYzine (ATARAX) 25 mg tablet Take 1 tablet (25 mg total) by mouth every 6 (six) hours as needed for itching. 12 tablet 12/27/2023 04/22/2024 Discontinued Start: 02-16-2023 Hydroxyzine Hc l 25 mg tablet Active 12.5 MG PO Four times daily as needed for Anxiety February 15, 2023 11:00pm Start: 02-16-2023 take 12.5 mg by mout h four times daily Hydroxyzine Hcl Active 12.5 MG PO Four times daily February 16, 2023 12:00am take 1 tablet by keith th every eight hours as needed hydrOXYzine HCl (ATARAX) 25 mg tablet Take 25 mg by mouth three times a day as needed for anxiety. Active take 0.5 tablet by m outh four times daily as needed hydrOXYzine HCl 25 MG 1/2 tablet as needed Orally four times a day for 30 days PRN Active iron sucrose (VENOFER) 200 m g in sodium chloride 0.9 % 100 mL IVPB (1 source) Start: 05-08-2024 End: 05-11-2024 200 mg, IntraVENous, at 440 mL/hr, Administer over 15 Minutes, EVERY 24 HOURS, First dose on Wed05/08/24 at 1300, For 3 doses iv contrast (will be provide d with radiology test) (5 sources) Start: 09-28-2024 End: 09-29-2024 iv contrast (will be provide d with radiology test) CT ABD/PEL -Inject, intravenously, once for 1 dose.No IV access, insert saline lock prior to the beginning of sedation, infusion, injection of imaging exam. Discontinue saline lock post exam. If Pt. has a central line or IVAD, may access for administration according to line specific nursing protocol. Once exam is complete flush line and de-access according to line specific nursing protocol in the CT contrast administration guidelines link. 1 Each 09/28/2024 09/29/2024 Active Start: 09-28-2024 End: 09-28-2024 iv contrast (will be provide d with radiology test) CT Enterography W Inject, intravenously, once for 1 dose.No IV access, insert saline lock prior to the beginning of sedation, infusion, injection of imaging exam. Discontinue saline lock post exam. If Pt. has a central line or IVAD, may access for administration according to line specific nursing protocol. Once exam is complete flush line and de-access according to line specific nursing protocol in the CT contrast administration guidelines link. 1 Each 09/28/2024 09/28/2024 Discontinued Start: 08-04-2024 End: 08-05-2024 iv contrast (will be provide d with radiology test) Indications: Crohn's disease of both small and large intestine with abscess (HCC) CT Enterography W Inject, intravenously, once for 1 dose.No IV access, insert saline lock prior to the beginning of sedation, infusion, injection of imaging exam. Discontinue saline lock post exam. If Pt. has a central line or IVAD, may access for administration according to line specific nursing protocol. Once exam is complete flush line and de-access according to line specific nursing protocol in the CT contrast administration guidelines link. 1 Each 08/04/2024 08/05/2024 1 ml ketorolac tromethamine 15 mg/ml cartridge (3 sources) Nonsteroidal Anti-inflammatory Drug, Cyclooxygenase Inhibitor Start: 07-29-2024 End: 08-03-2024 15 mg, IntraVENous, EVERY 6 HOURS PRN, Starting on 07/29/24 at 0802, Until Wilma 08/03/24 at 0801, Pain Moderate (4-6), Do not administer for more than 5 days Start: 07-28-2024 End: 07-28-2024 15 mg, IntraVENous, ONCE, 1 dose, On 07/28/24 at 1745, Do not administer for more than 5 days Start: 05-31-2020 End: 05-31-2020 ketorolac (TORADOL) injectio n 15 mg Lactobacillus acidophilus (20 sources) take 1 capsule by mo [facility] once daily Lactobacillus acidophilus (PROBIOTIC ACIDOPHILUS ORAL) Take 1 capsule by mouth once daily Suspended take 1 capsule by mouth once mike ly Lactobacillus acidophilus (PROBIOTIC ACIDOPHILUS ORAL) Take 1 capsule by mouth once daily Active lidocaine 0.04 mg/mg medicated patch (3 sources) Antiarrhythmic, Amide Local Anesthetic Start: 02-24-2025 End: 03-01-2025 lidocaine (SALONPAS) 4 % patch Apply 2 patches as directed once daily for 5 days. 10 patch 02/23/2025 2:47 PM EDT 02/24/2025 03/01/2025 Active Start: 06-05-2024 End: 06-05-2024 take 1 dose intravenously once daily 1 mL, IntraDERmal, ONCE PRN, 1 dose, Starting on Wed06/05/24 at 0836, Until Wed06/05/24 at 0905, IV start, Pre-op (day of surgery) methocarbamol 500 mg oral tablet (7 sources) Muscle Relaxant Start: 02-23-2025 End: 03-02-2025 take 1 tablet by mouth three times daily as needed methocarbamol (ROBAXIN) 500 mg tablet Indications: Postoperative pain Take 1 tablet by mouth three times a day as needed for up to 7 days. 21 tablet 02/23/2025 2:47 PM EDT 02/23/2025 03/02/2025 Active Start: 04-30-2018 End: 05-11-2018 take 1 tablet by mouth three times daily as needed for muscle spasms methocarbamol (ROBAXIN) 500 MG tablet Take 1 (one) tablet (500 mg total) by mouth 3 (three) times a day as needed for muscle spasms. 30 tablet 0 05/01/2018 05/11/2018 Active methylPREDNISolone sodium succ (SOLU-MEDROL) 40 mg in sterile water 1 mL injection (1 source) Start: 05-09-2024 40 mg, IntraVENous, DAILY, First dose on Wed05/09/24 at 1500, Reconstitute each 40 mg vial with 1 mL of diluent. midodrine hydrochloride 10 mg oral tablet (20 sources) alpha-Adrener gic Agonist Start: 07-30-2024 End: 02-14-2025 take 1 tablet by mouth three times daily at mealtime midodrine (PROAMATINE) 10 MG tablet Take 1 tablet by mouth 3 times daily (with meals) 90 tablet 3 07/30/2024 Active Start: 07-29-2024 take 10 mg by mouth once at bedtime 10 mg, Oral, Once, 1 dose, On 07/29/24 at 0630, Do not give after 1800 or within 4 hrs of bedtime. Start: 07-27-2024 take 10 mg by mouth three times daily at mealtime 10 mg, Oral, 3 TIMES DAILY WITH MEALS, First dose (after last modification) on Wed07/27/24 at 1200, Until Discontinued, Do not give after 1800 or within 4 hrs of bedtime. Start: 07-25-2024 End: 07-27-2024 take 5 mg by mouth three times daily at mealtime 5 mg, Oral, 3 TIMES DAILY WITH MEALS, First dose on Wed07/25/24 at 1300, Until Discontinued, Do not give after 1800 or within 4 hrs of bedtime. mupirocin 0.02 mg/mg topical ointment (4 sources) RNA Synthetase Inhibitor Antibacterial Start: 12-21-2023 Mupirocin 2 % oi ntment Active APPLIC TOPICAL December 20, 2023 11:00pm FreeTextSi application Externally TID; Note: Source Status: Start; Qty: 60 Gram; Provider: Ambika Moreau Start: 12-21-2023 Mupirocin Acti ve APPLIC TOPICAL December 21, 2023 12:00am FreeTextSi application Externally TID; Note: Source Status: Start; Qty: 60 Gram; Provider: Ambika Moreau Start: 05-26-2023 Mupirocin 2 % 1 application Externally TID for 7 days May, Active naloxone hydrochloride 40 mg/ml nasal spray (15 sources) Opioid Antagonist Start: 02-23-2025 naloxone 4 mg/actuation nasal spray (NARCAN) Use 1 spray in one nostril as needed for overdose. May repeat every 2 to 3 min in alternating nostrils until medical assistance is available 2 each 1 02/23/2025 2:47 PM EDT 02/23/2025 Active nicotine 2 mg oral lozenge (20 sources) Cholinergic Nicotinic Agonist Start: 12-21-2023 apply 1 dose transdermal route every twenty-four hours Nicotine 21 mg/24 hr patch 24 hour Active 1 PATCH TRANSDERML Daily December 20, 2023 11:00pm Start: 12-21-2023 Nicotine (Skyler crilex) 2 mg lozenge Active MG PO As Directed December 20, 2023 11:00pm FreeTextSig: as directed Mouth/Throat; Note: Source Status: TakingPRN; Provider: OTC Start: 12-21-2023 apply 1 dose transde rmal route once daily Nicotine Active 1 PATCH TRANSDERML Daily December 21, 2023 12:00am Start: 12-21-2023 Nicotine (Skyler crilex) Active MG PO As Directed December 21, 2023 12:00am FreeTextSig: as directed Mouth/Throat; Note: Source Status: TakingPRN; Provider: OTC Start: 06-03-2020 End: 06-04-2020 nicotine (NICODERM CQ) 14 mg /24 hr 1 patch Start: 06-01-2020 End: 06-03-2020 nicotine (NICODERM CQ) 7 mg/ 24 hr 1 patch apply 1 dose transde rmal route once daily as needed Nicotine 21 MG/24HR 1 patch to skin Transdermal Once a day PRN Active Nicotine 2 MG as directed Mouth/Throat PRN Active nitrofurantoin, macrocrystals 25 mg / nitrofurantoin, monohydrate 75 mg oral capsule (2 sources) Nitrofuran Antibacterial Start: 05-05-2023 take 1 capsule by mouth every twelve hours Macrobid 100 MG 1 capsule with food Orally every 12 hrs for 5 days May, Active omeprazole 40 mg delayed release oral capsule (14 sources) Proton Pump Inhibitor Start: 12-21-2023 take 1 capsule by mouth once daily Omeprazole 40 mg capsule,delayed release(DR/EC) Active 40 MG PO Daily December 20, 2023 11:00pm Start: 02-23-2023 take 1 capsule by mo [facility] once daily Omeprazole 40 MG 1 capsule 30 minutes before morning meal Orally Once a day for 30 days Feb, Active End: 05-09-2024 take 1 capsule by mouth once daily omeprazole (PRILOSEC) 10 MG delayed release capsule Take 1 capsule by mouth daily 05/09/2024 Discontinued (Stop Taking at Discharge) ondansetron 4 mg disintegrating oral tablet (20 sources) Serotonin-3 Receptor Antagonist Start: 03-16-2025 take 1 tablet by mouth every twelve hours as needed for nausea ondansetron orally disintegrating (ZOFRAN ODT) 4 mg disintegrating tablet Indications: Crohn's disease of both small and large intestine with abscess (HCC) , Nausea Take 1 tablet by mouth every 12 hours as needed for nausea/vomiting. 60 tablet 2 03/16/2025 Active Start: 07-19-2024 End: 07-19-2024 4 mg, IntraVENous, ONCE, 1 d ose, On Wed07/19/24 at 1915 Start: 05-24-2024 take 1 tablet by keith th three times daily as needed for nausea ondansetron (ZOFRAN-ODT) 4 MG disintegrating tablet Take 1 tablet by mouth 3 times daily as needed for Nausea or Vomiting 21 tablet 05/24/2024 Active Start: 05-09-2024 take 1 tablet by keith th every twelve hours as needed for nausea ondansetron (ZOFRAN) 4 MG tablet Take 1 tablet by mouth every 12 hours as needed for Nausea or Vomiting 10 tablet 05/09/2024 Active Start: 05-01-2024 End: 05-01-2024 4 mg, IntraVENous, ONCE, 1 d ose, On Wed05/01/24 at 1445 Start: 11-22-2023 take 1 tablet by keith th three times daily as needed for nausea ondansetron (ZOFRAN-ODT) 4 MG disintegrating tablet Take 1 tablet by mouth 3 times daily as needed for Nausea or Vomiting 21 tablet 0 11/22/2023 Active Start: 11-22-2023 End: 11-22-2023 ondansetron (ZOFRAN) injecti on 4 mg Start: 11-22-2023 End: 11-22-2023 ondansetron (ZOFRAN) 4 MG/2M L injection Start: 06-18-2020 End: 09-28-2024 take 1 tablet by mouth every eight hours as needed ondansetron orally disintegrating (ZOFRAN ODT) 4 mg disintegrating tablet Take 1 tablet by mouth every 8 hours as needed for nausea/vomiting (first line). 30 tablet 09/28/2024 Active Start: 06-04-2020 End: 06-11-2020 take 1 tablet by mouth every eight hours as needed ondansetron (ZOFRAN) 8 MG tablet Take 1 (one) tablet (8 mg total) by mouth every 8 (eight) hours as needed for nausea . 20 tablet 0 06/04/2020 Active Start: 05-30-2020 End: 06-04-2020 take 4 mg intravenous route every six hours as needed ondansetron (ZOFRAN) injection 4 mg take 1 tablet by keith th every eight hours as needed for nausea and vomiting ondansetron (ZOFRAN) 4 mg tablet Take 1 tablet (4 mg total) by mouth every 8 (eight) hours as needed for nausea or vomiting. Active ondansetron (ZOFRAN-ODT) disintegrating tablet 4 mg (3 sources) Start: 07-19-2024 ondansetron (Z OFRAN-ODT) disintegrating tablet 4 mg Start: 05-01-2024 ondansetron (Z OFRAN-ODT) disintegrating tablet 4 mg Start: 04-30-2018 End: 05-01-2018 take 1 tablet by mouth every six hours as needed ondansetron (ZOFRAN-ODT) disintegrating tablet 4 mg opium tincture 100 mg/ml oral solution (11 sources) Start: 10-25-2024 End: 12-10-2024 take 0.3 mL by mouth every four hours as needed opium tincture 10 mg/mL (morphine) Indications: High output ileostomy (HCC) Take 0.3 mL by mouth every 4 hours as needed for up to 30 days as directed. 54 mL 11/10/2024 7:37 PM EDT 11/07/2024 12/10/2024 Active pantoprazole 40 mg delayed release oral tablet (20 sources) Proton Pump Inhibitor Start: 02-16-2023 End: 11-05-2024 take 1 tablet by mouth once daily pantoprazole DR (PROTONIX) 40 mg tablet Take 1 tablet by mouth once daily. 30 tablet 2 08/08/2024 12:15 PM EST 08/07/2024 Active Start: 05-31-2020 End: 06-04-2020 pantoprazole (PROTONIX) inje ction 40 mg pantoprazole (PROTONIX) 40 m g in sodium chloride (PF) 0.9 % 10 mL injection (2 sources) Start: 07-20-2024 40 mg, IntraVE Nous, DAILY, First dose on Wed07/20/24 at 0900, Reconstitute each 40 mg vial with 10 mL of 0.9% sodium chloride and administer each 40 mg vial over at least 2 minutes. Start: 05-01-2024 End: 05-06-2024 40 mg, IntraVENous, DAILY, F irst dose on Wed05/01/24 at 2100, Reconstitute each 40 mg vial with 10 mL of 0.9% sodium chloride and administer each 40 mg vial over at least 2 minutes. PN-Adult 2-in-1 Central Line (Standard) (7 sources) Start: 07-29-2024 End: 07-30-2024 IntraVENous, at 55 mL/hr, Administer over 24 Hours, CONTINUOUS TPN, Starting on 07/29/24 at 1800, For 24 hours Start: 07-28-2024 End: 07-29-2024 IntraVENous, at 55 mL/hr, Ad mobile sales technician over 24 Hours, CONTINUOUS TPN, Starting on Wed07/28/24 at 1800, For 24 hours Start: 07-27-2024 End: 07-28-2024 IntraVENous, at 51.3 mL/hr, Administer over 24 Hours, CONTINUOUS TPN, Starting on Wed07/27/24 at 1800, For 24 hours Start: 07-26-2024 End: 07-27-2024 IntraVENous, at 51.3 mL/hr, Administer over 24 Hours, CONTINUOUS TPN, Starting on Wed07/26/24 at 1800, For 24 hours Start: 07-25-2024 End: 07-26-2024 IntraVENous, at 50.8 mL/hr, Administer over 24 Hours, CONTINUOUS TPN, Starting on Wed07/25/24 at 1800, For 24 hours Start: 07-24-2024 End: 07-25-2024 IntraVENous, at 50 mL/hr, Ad mobile sales technician over 24 Hours, CONTINUOUS TPN, Starting on Wed07/24/24 at 1800, For 24 hours Start: 07-23-2024 End: 07-24-2024 IntraVENous, at 41.7 mL/hr, Administer over 24 Hours, CONTINUOUS TPN, Starting on Wed07/23/24 at 1800, For 24 hours polyethylene glycol 3350 170 00 mg powder for oral solution (5 sources) Osmotic Laxative Start: 05-01-2024 Start: 04-03-2024 End: 05-09-2024 polyethylene glycol (MIRALAX ) 17 GM/SCOOP powder Take per bowel prep instructions 238 g 04/03/2024 05/09/2024 Discontinued (Stop Taking at Discharge) Start: 03-31-2024 End: 06-05-2024 polyethylene glycol (GLYCOLA X) 17 GM/SCOOP powder Dispense 4 Dulcolax tablets with this prescription. Use as directed by following your patient instructions given by your physician. 255 g 03/31/2024 06/05/2024 Discontinued (Therapy completed) Potassium Chloride (3 sources) Start: 07-19-2024 End: 08-05-2024 potassium chloride (KLOR-CON M) extended release tablet 40 mEq Start: 05-01-2024 potassium chlo ride (KLOR-CON M) extended release tablet 40 mEq Start: 06-01-2020 End: 06-01-2020 potassium chloride SA (K-DUR ,KLOR-CON) CR tablet 40 mEq predniSONE 20 mg oral tablet (20 sources) Start: 05-09-2024 End: 05-14-2024 take 1 tablet by mouth twice daily predniSONE (DELTASONE) 20 MG tablet Take 1 tablet by mouth 2 times daily for 5 days 10 tablet 1 05/09/2024 05/14/2024 Active Start: 02-16-2023 take 40 mg by mouth once daily Prednisone Active 40 MG PO Daily February 16, 2023 12:00am Start: 12-23-2022 End: 12-04-2023 take 2 tablets by mouth once daily, then take 1.5 tablets by mouth once daily, then take 1 tablet by mouth once daily, then take 0.5 tablet by mouth once daily predniSONE (DELTASONE) 20 MG tablet Take 2 tablets by mouth daily for 3 days, THEN 1.5 tablets daily for 3 days, THEN 1 tablet daily for 3 days, THEN 0.5 tablets daily for 3 days. 15 tablet 0 11/22/2023 12/04/2023 Active Start: 12-23-2022 take 1 tablet by keith every twenty-four hours predniSONE 20 MG 1 tablet Orally Once a day for 30 days Jan, Active Start: 12-23-2022 predniSONE 5 M G 7 tablets daily for 7 days, then 6 tablets daily for 7 days, then 5 tablets daily for 7 days, then 4 tablets daily for 7 days, then 3 tablets daily for 7 days, then 2 tablets daily for 7 days, then 1 tablet daily for 7 days Orally Once a day for 49 days Dec, Not-Taking Start: 12-23-2022 Start: 06-18-2020 End: 08-06-2020 predniSONE (DELTASONE) 10 MG tablet Indications: Crohn's disease of small intestine without complication (HCC) Take 3.5 (three and a half) tablets (35 mg total) by mouth daily for 7 days, THEN 3 (three) tablets (30 mg total) daily for 7 days, THEN 2.5 (two and a half) tablets (25 mg total) daily for 7 days, THEN 2 (two) tablets (20 mg total) daily for 7 days, THEN 1.5 (one and a half) tablets (15 mg total) daily for 7 days, THEN 1 (one) tablet (10 mg total) daily for 7 days, THEN 0.5 (one-half) tablet (5 mg total) daily for 7 days. 98 tablet 0 06/18/2020 08/06/2020 Active Start: 06-04-2020 End: 06-18-2020 take 2 tablets by mouth once daily predniSONE (DELTASONE) 20 MG tablet Take 2 (two) tablets (40 mg total) by mouth daily Please call Dr. Cardenas to discuss tapering and stopping prednsone. for 14 days . 28 tablet 0 06/04/2020 06/18/2020 Discontinued (Dose adjustment) Start: 03-01-2012 End: 05-30-2020 predniSONE (DELTASONE) 10 MG tablet Start: 03-01-2012 predniSONE (DE LTASONE) 10 MG tablet take 3 tablets by [facility] every twenty-four hours predniSONE 20 MG 3 tablets Orally once a day for 28 days Active promethazine hydrochloride 25 mg oral tablet (20 sources) Phenothiazine Start: 02-16-2023 End: 08-07-2024 take 1 tablet by mouth every six hours as needed promethazine (PHENERGAN) 25 mg tablet Take 1 tablet by mouth every 6 hours as needed for nausea/vomiting (second line). 30 tablet 08/08/2024 12:15 PM EST 08/07/2024 Active propranolol hydrochloride 10 mg oral tablet (20 sources) beta-Adrenergic Sunshine Start: 12-21-2023 take 1 tablet by mouth twice daily as needed Propranolol 10 mg tablet Active MG PO December 20, 2023 11:00pm FreeTextSi tablet PRN panic Orally BID; Note: Source Status: Taking; Refills: 1; Qty: 60 Tablet; Provider: Ambika Moreau Start: 04-09-2023 [facility] Propranolol HCl 10 MG 1 tablet PRN panic Orally BID for 30 days Apr, Active End: 02-14-2025 take 1 tablet by mouth once daily as needed propranolol (INDERAL) 10 mg tablet Take 10 mg by mouth once daily. As needed for panic attacks 02/14/2025 Discontinued (Discontinued by Patient) psyllium 400 mg oral capsule (20 sources) Start: 10-25-2024 End: 11-24-2024 psyllium husk (METAMUCIL) 0. 4 gram cap Take 2 capsules by mouth three times a day. 90 capsule 10/25/2024 11/24/2024 Active take 1 dose by mouth once daily psyllium (METAMUCIL FIBER SINGLES) 3.4 gram packet Take 1 packet by mouth once daily. Suspended RINVOQ 30 mg ER tablet (2 sources) Start: 08-16-2023 RINVOQ 30 mg E R tablet 08/16/2023 Active Start: 08-16-2023 take 1 tablet by keith th once daily RINVOQ 30 mg ER tablet TAKE 1 TABLET BY MOUTH EVERY DAY 0 08/16/2023 Active risankizumab-rzaa (SKYRIZI) 360 mg/2.4 mL (150 mg/mL) wearable injector (13 sources) Start: 03-02-2025 risankizumab-rzaa (SKYRIZI) 360 mg/2.4 mL (150 mg/mL) wearable injector Indications: Crohn's disease of small and large intestines with complication (HCC) Inject 360 mg subcutaneously every 8 weeks. Start 4 weeks after the last infusion dose. 2.4 mL 2 03/02/2025 Active 500 ml soybean oil 200 mg/ml injection (1 source) Start: 07-23-2024 250 mL, IntraVENous, at 21 mL/hr, Administer over 12 Hours, DAILY, First dose on 07/23/24 at 1800, Use 1.2 micro filter. USE CAUTION IF PATIENT USING PROPOFOL. sucralfate 100 mg/ml oral suspension (11 sources) Aluminum Complex Start: 02-23-2023 take 10 mL by mouth four times daily 1 hour(s) before bedtime Carafate 1 GM/10ML 10 mL 1 hour before meals and at bedtime on an empty stomach Orally Four times a day = before meals and before bed for 10 days PRN Feb, Active Sucralfate (Carafate) 100 mg/mL suspension (2 sources) Start: 12-21-2023 take 1 mL by mouth four times daily as needed Sucralfate (Carafate) 100 mg/mL suspension Active 10 ML PO Four times daily as needed December 20, 2023 11:00pm Start: 12-21-2023 take 1 mL by mouth f our times daily Sucralfate (Carafate) 100 mg/mL suspension Active 10 ML PO Four times daily December 21, 2023 12:00am traMADol hydrochloride 50 mg oral tablet (9 sources) Opioid Agonist Start: 02-16-2023 take 1 tablet by mouth every four hours as needed for pain Tramadol 50 mg tablet Active 50 MG PO Q4H as needed for pain 14 7 February 15, 2023 11:00pm Start: 06-19-2020 End: 06-24-2020 take 1 tablet by mouth twice daily as needed for pain, then take 5 tablets by mouth as needed for pain traMADoL (ULTRAM) 50 mg tablet Indications: Chronic pain of left knee Take 1 (one) tablet (50 mg total) by mouth 2 (two) times a day as needed for pain (Days supply per fill: 5) . 10 tablet 0 06/19/2020 06/24/2020 Active Upadacitinib (6 sources) Start: 02-16-2023 take 1 tablet by keith th once daily Upadacitinib (Rinvoq) 45 mg tablet extended release 24 hr Active 45 MG PO Daily February 15, 2023 11:00pm Start: 02-16-2023 take 1 tablet by keith once daily Upadacitinib (Rinvoq) 45 mg tablet extended release 24 hr Active 45 MG PO Daily February 16, 2023 12:00am vitamin b12 0.5 mg oral tablet (1 source) Vitamin B12 Start: 05-08-2024 End: 05-15-2024 1,000 mcg, Oral, DAILY, 7 doses, First dose on Wed05/08/24 at 1300, Last dose on 05/14/24 at 0900 Completed/Discontinued Medications Medication Drug Class(es) Dates Sig (Normalized) Sig (Original) acetaminophen 325 mg / HYDROcodone bitartrate 5 mg oral tablet (11 sources) Opioid Agonist Start: 07-24-2022 End: 02-16-2023 take 1 tablet by mouth three times daily as needed for pain Hydrocodone-Acetami nophen 5-325 mg tablet Discontinued 1 TAB PO Three times daily as needed for pain 9 3 July 24, 2022 February 16, 2023 5:51am Start: 04-30-2018 End: 05-01-2018 take 1 tablet by mouth every six hours as needed acetaminophen 325 mg / oxyCODONE hydrochloride 5 mg oral tablet (3 sources) Opioid Agonist Start: 07-27-2024 End: 07-28-2024 1 tablet, Oral, EVERY 4 HOURS PRN, Starting on Wed07/28/24 at 1722, Until Discontinued, Pain Severe (7-10), Maximum dose of acetaminophen is 4000 mg from all sources in 24 hours. Start: 05-09-2024 End: 05-14-2024 oxyCODONE-acetaminophen (PER COCET) 5-325 MG per tablet Indications: Crohn's disease of colon with abscess (HCC) , Intra-abdominal abscess (HCC) , Crohn's colitis, other complication (HCC) Take 1 tablet by mouth every 6 hours as needed for Pain for up to 5 days. Intended supply: 3 days. Take lowest dose possible to manage pain Max Daily Amount: 4 tablets 12 tablet 05/09/2024 05/14/2024 Active albuterol 0.833 mg/ml / ipratropium bromide 0.167 mg/ml inhalant solution (2 sources) Anticholinergic, beta2-Adrenergic Agonist Start: 09-10-2018 End: 09-10-2018 ipratropium-albuterol (DUO-NEB) 0.5-2.5 mg/3 ml nebulizer solution 3 mL Start: 09-10-2018 End: 09-10-2018 ipratropium-albuterol (DUO-N EB) 0.5-2.5 mg/3 ml nebulizer solution 3 mL albuterol 90 mcg/actuation inhaler (3 sources) Start: 09-10-2018 End: 06-19-2020 take 2 puff(s) by inhalation every six hours as needed for wheezing albuterol 90 mcg/actuation inhaler Indications: Bronchitis , Cough Inhale 2 (two) puffs every 6 (six) hours as needed for wheezing . 6.7 g 0 09/10/2018 06/19/2020 Discontinued Start: 09-10-2018 take 2 puff(s) by in halation every six hours as needed for wheezing albuterol 90 mcg/actuation inhaler Indications: Bronchitis , Cough Inhale 2 (two) puffs every 6 (six) hours as needed for wheezing . 6.7 g 0 09/10/2018 Active amoxicillin 875 mg / clavulanate 125 mg oral tablet (3 sources) Penicillin-class Antibacterial Start: 05-09-2024 End: 05-23-2024 take 1 tablet by mouth twice daily amoxicillin-clavulanate (AUGMENTIN) 875-125 MG per tablet Take 1 tablet by mouth 2 times daily for 14 days 28 tablet 05/09/2024 05/23/2024 Start: 04-22-2024 End: 04-29-2024 take 1 tablet by mouth once in the morning amoxicillin-pot clavulanate (AUGMENTIN) 875-125 mg per tablet Indications: Upper respiratory tract infection, unspecified type Take 1 tablet by mouth in the morning and 1 tablet before bedtime. Do all this for 7 days. 14 tablet 04/22/2024 04/29/2024 Active atropine sulfate 0.025 mg / diphenoxylate hydrochloride 2.5 mg oral tablet (20 sources) Anticholinergic, Cholinergic Muscarinic Antagonist, Antidiarrheal Start: 08-30-2024 End: 01-23-2025 take 2 tablets by mouth once at bedtime diphenoxylate-atropine (LOMOTIL) 2.5-0.025 mg per tablet Indications: High output ileostomy (HCC) Take 2 tablets by mouth before meals and at bedtime for 90 days. 240 tablet 2 10/25/2024 Suspended barium sulfate (READI-CAT 2) 2 % suspension 450 mL (1 source) Start: 07-19-2024 End: 07-19-2024 take 1 dose by mouth once 450 mL, Oral, IMG ONCE PRN, 1 dose, Starting on Wed07/19/24 at 1725, Until Wed07/19/24 at 1727, Other benzocaine 140 mg/ml / butamben 20 mg/ml / tetracaine 20 mg/ml mucosal spray (1 source) [facility] Local Anesthetic, Standardized Chemical Allergen Start: 07-21-2024 End: 07-21-2024 apply 1 dose topically once 1 spray, Topical, ONCE,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 [address] Performed By: #### 3 8445-3 ####[facility] LABCLIA [id number] [place] [address] [place] CBC W Auto Differential pane l (Bld)on 03-22-2025 Basophils (Bld) [#/Vol] 0.03 10*3/uL Normal <0.11 [facility] Comment on above: Order Comment: Speci men Type: BLOOD SPECIMENOrdering Facility: [facility] Address: [address] [place] [address] Performed By: #### 5 7021-8 ####[facility] LABCLIA [id number] [place] [address] Basophils/100 WBC (Bld) 0.5 % Normal [facility] Comment on above: Order Comment: Speci men Type: BLOOD SPECIMENOrdering Facility: [facility] Address: [address] [place] [address] Performed By: #### 5 7021-8 ####[facility] LABCLIA [id number] [place] [address] Differential cell count method Nom (Bld) Auto Normal [facility] Comment on above: Order Comment: Speci men Type: BLOOD SPECIMENOrdering Facility: [facility] Address: [address] [place] [address] Performed By: #### 5 7021-8 ####[facility] LABCLIA [id number] [place] [address] Eosinophils (Bld) [#/Vol] 0.18 10*3/uL Normal <0.46 [facility] Comment on above: Order Comment: Speci men Type: BLOOD SPECIMENOrdering Facility: [facility] Address: [address] [place] [address] Performed By: #### 5 7021-8 ####[facility] LABCLIA [id number] [place] [address] Eosinophils/100 WBC (Bld) 3.0 % Normal [facility] Comment on above: Order Comment: Speci men Type: BLOOD SPECIMENOrdering Facility: [facility] Address: [address] [place] [address] Performed By: #### 5 7021-8 ####[facility] LABCLIA [id number] [place] [address] Erythrocyte distribution width (RBC) [Ratio] 13.0 % Normal 11.5-15.0 [facility] Comment on above: Order Comment: Speci men Type: BLOOD SPECIMENOrdering Facility: [facility] Address: [address] [place] [address] Performed By: #### 5 7021-8 ####[facility] LABCLIA [id number] [place] [address] Hematocrit (Bld) [Volume fraction] 34.1 % Low 36.0-46.0 [facility] Comment on above: Order Comment: Speci men Type: BLOOD SPECIMENOrdering Facility: [facility] Address: [address] [place] [address] Performed By: #### 5 7021-8 ####[facility] LABCLIA [id number] [place] [address] Hemoglobin (Bld) [Mass/Vol] 11.3 g/dL Low 11.5-15.5 [facility] Comment on above: Order Comment: Speci men Type: BLOOD SPECIMENOrdering Facility: [facility] Address: [address] [place] [address] Performed By: #### 5 7021-8 ####[facility] LABCLIA [id number] [place] [address] Immature granulocytes (Bld) [#/Vol] 10*3/uL Normal <0.10 [facility] Comment on above: Order Comment: Speci men Type: BLOOD SPECIMENOrdering Facility: [facility] Address: [address] [place] [address] Performed By: #### 5 7021-8 ####[facility] LABCLIA [id number] [place] [address] Immature granulocytes/100 WBC (Bld) 0.2 % Normal [facility] Comment on above: Order Comment: Speci men Type: BLOOD SPECIMENOrdering Facility: [facility] Address: [address] [place] [address] Performed By: #### 5 7021-8 ####[facility] LABCLIA [id number] [place] [address] Lymphocytes (Bld) [#/Vol] 1.32 10*3/uL Normal 1.00-4.00 [facility] Comment on above: Order Comment: Speci men Type: BLOOD SPECIMENOrdering Facility: [facility] Address: [address] [place] [address] Performed By: #### 5 7021-8 ####[facility] LABCLIA [id number] [place] [address] Lymphocytes/100 WBC (Bld) 21.7 % Normal [facility] Comment on above: Order Comment: Speci men Type: BLOOD SPECIMENOrdering Facility: [facility] Address: [address] [place] [address] Performed By: #### 5 7021-8 ####[facility] LABCLIA [id number] [place] [address] MCH (RBC) [Entitic mass] 29.0 pg Normal 26.0-34.0 [facility] Comment on above: Order Comment: Speci men Type: BLOOD SPECIMENOrdering Facility: [facility] Address: [address] [place] [address] Performed By: #### 5 7021-8 ####[facility] LABIA [id number] [place] [address] MCHC (RBC) [Mass/Vol] 33.1 g/dL Normal 30.5-36.0 [facility] Comment on above: Order Comment: Speci men Type: BLOOD SPECIMENOrdering Facility: [facility] Address: [address] [place] [address] Performed By: #### 5 7021-8 ####[facility] LABIA [id number] [place] [address] MCV (RBC) [Entitic vol] 87.7 fL Normal 80.0-100.0 [facility] Comment on above: Order Comment: Speci men Type: BLOOD SPECIMENOrdering Facility: [facility] Address: [address] [place] [address] Performed By: #### 5 7021-8 ####[facility] LABIA [id number] [place] [address] Monocytes (Bld) [#/Vol] 0.30 10*3/uL Normal <0.87 [facility] Comment on above: Order Comment: Speci men Type: BLOOD SPECIMENOrdering Facility: [facility] Address: [address] [place] [address] Performed By: #### 5 7021-8 ####[facility] LABCLIA [id number] [place] [address] Monocytes/100 WBC (Bld) 4.9 % Normal [facility] Comment on above: Order Comment: Speci men Type: BLOOD SPECIMENOrdering Facility: [facility] Address: [address] [place] [address] Performed By: #### 5 7021-8 ####[facility] LABCLIA [id number] [place] [address] Neutrophils (Bld) [#/Vol] 4.25 10*3/uL Normal 1.45-7.50 [facility] Comment on above: Order Comment: Speci men Type: BLOOD SPECIMENOrdering Facility: [facility] Address: [address] [place] [address] Performed By: #### 5 7021-8 ####[facility] LABCLIA [id number] [place] [address] Neutrophils/100 WBC (Bld) 69.7 % Normal [facility] Comment on above: Order Comment: Speci men Type: BLOOD SPECIMENOrdering Facility: [facility] Address: [address] [place] [address] Performed By: #### 5 7021-8 ####[facility] LABCLIA [id number] [place] [address] Nucleated RBC (Bld) [#/Vol] 10*3/uL Normal <0.01 [facility] Comment on above: Order Comment: Speci men Type: BLOOD SPECIMENOrdering Facility: [facility] Address: [address] [place] [address] Performed By: #### 5 7021-8 ####[facility] LABCLIA [id number] [place] [address] Nucleated RBC/100 WBC (Bld) [Ratio] 0.0 /100 WBC Normal [facility] Comment on above: Order Comment: Speci men Type: BLOOD SPECIMENOrdering Facility: [facility] Address: [address] [place] [address] Performed By: #### 5 7021-8 ####[facility] LABCLIA [id number] [place] [address] Platelet mean volume (Bld) [Entitic vol] 11.2 fL Normal 9.0-12.7 [facility] Comment on above: Order Comment: Speci men Type: BLOOD SPECIMENOrdering Facility: [facility] Address: [address] [place] [address] Performed By: #### 5 7021-8 ####[facility] LABCLIA [id number] [place] [address] Platelets (Bld) [#/Vol] 185 10*3/uL Normal 150-400 [facility] Comment on above: Order Comment: Speci men Type: BLOOD SPECIMENOrdering Facility: [facility] Address: [address] [place] [address] Performed By: #### 5 7021-8 ####[facility] LABCLIA [id number] [place] [address] RBC (Bld) [#/Vol] 3.89 10*6/uL Low 3.90-5.20 [facility] Comment on above: Order Comment: Speci men Type: BLOOD SPECIMENOrdering Facility: [facility] Address: [address] [place] [address] Performed By: #### 5 7021-8 ####[facility] LABCLIA [id number] [place] [address] WBC (Bld) [#/Vol] 6.09 10*3/uL Normal 3.70-11.00 [facility] Comment on above: Order Comment: Speci men Type: BLOOD SPECIMENOrdering Facility: [facility] Address: [address] [place] [address] Performed By: #### 5 7021-8 ####[facility] LABCLIA [id number] [place] [address] CRP SerPl-ncon 03-22-2025 CRP [Mass/Vol] 0.4 mg/dL Normal <0.9 [facility] Comment on above: Order Comment: Speci men Type: BLOOD SPECIMENOrdering Facility: [facility] Address: [address] [place] [address] Performed By: #### 1 988-5, 75909-3, 3016-3 ####[facility] LABCLIA [id number] [place] [id number] [facility] Comprehensive metabolic 2000 panelon 03-22-2025 Albumin [Mass/Vol] 4.2 g/dL Normal 3.9-4.9 [facility] [place] Comment on above: Order Comment: Speci men Type: BLOOD SPECIMENOrdering Facility: [facility] Address: [address] [place] [address] Performed By: #### 2 777-1, 61988-6, ####[facility] LABCLIA [id number] [place] [address] ALP [Catalytic activity/Vol] 88 U/L Normal 34-123 [facility] Comment on above: Order Comment: Speci men Type: BLOOD SPECIMENOrdering Facility: [facility] Address: [address] [place] [address] Performed By: #### 2 777-1, 13768-9, ####[facility] LABCLIA [id number] [place] [address] ALT [Catalytic activity/Vol] 26 U/L Normal 7-38 [facility] Comment on above: Order Comment: Speci men Type: BLOOD SPECIMENOrdering Facility: [facility] Address: [address] [place], [place] [address] Performed By: #### 2 777-1, 97878-8, ####[facility] LABCLIA [id number] [place] [address] Anion gap [Moles/Vol] 13 mmol/L Normal 8-15 [facility] Comment on above: Order Comment: Speci men Type: BLOOD SPECIMENOrdering Facility: [facility] Address: [address] [place] [address] Performed By: #### 2 777-1, , ####[facility] LABCLIA [id number] [place] [address] AST [Catalytic activity/Vol] 27 U/L Normal 13-35 [facility] Comment on above: Order Comment: Speci men Type: BLOOD SPECIMENOrdering Facility: [facility] Address: [address] [place] [address] Performed By: #### 2 777-1, , ####[facility] LABCLIA [id number] [place] [address] Bilirubin [Mass/Vol] 0.4 mg/dL Normal 0.2-1.3 [facility] Comment on above: Order Comment: Speci men Type: BLOOD SPECIMENOrdering Facility: [facility] Address: [address] [place] [address] Performed By: #### 2 777-1, , ####[facility] LABCLIA [id number] [place] [address] Calcium [Mass/Vol] 9.3 mg/dL Normal 8.5-10.2 [facility] Comment on above: Order Comment: Speci men Type: BLOOD SPECIMENOrdering Facility: [facility] Address: [address] [place] [address] Performed By: #### 2 777-1, , ####[facility] LABCLIA [id number] [place] [address] Chloride [Moles/Vol] 99 mmol/L Normal 98-107 [facility] Comment on above: Order Comment: Speci men Type: BLOOD SPECIMENOrdering Facility: [facility] Address: [address] [place] [address] Performed By: #### 2 777-1, , ####[facility] LABCLIA [id number] [place] [address] CO2 [Moles/Vol] 24 mmol/L Normal 22-30 [facility] Comment on above: Order Comment: Speci men Type: BLOOD SPECIMENOrdering Facility: [facility] Address: [address] [place] [address] Performed By: #### 2 777-1, , ####[facility] LABCLIA [id number] [place] [address] Creatinine [Mass/Vol] 0.64 mg/dL Normal 0.58-0.96 [facility] Comment on above: Order Comment: Speci men Type: BLOOD SPECIMENOrdering Facility: [facility] Address: [address] [place] [address] Performed By: #### 2 777-1, , ####[facility] LABCLIA [id number] [place] [address] eGFRcr SerPlBld CKD-EPI 2020 117 mL/min/1.73m??? Normal >=60 [facility] Comment on above: Order Comment: Speci men Type: BLOOD SPECIMENOrdering Facility: [facility] Address: [address] [place], [place] [address] Result Comment: Desiree mated Glomerular Filtration Rate (eGFR) is calculated using the 2020 CKD-EPI creatinine equation. This equation utilizes serum creatinine, sex, and age as parameters. The creatinine assay has traceable calibration to isotope dilution-mass spectrometry. Refer to KDIGO guidelines for clinical interpretation. In patients with unstable renal function, e.g. those with acute kidney injury, the eGFR may not accurately reflect actual GFR. Performed By: #### 2 777-1, 78252-7, ####[facility] LABCLIA [id number] [place] [address] Glucose [Mass/Vol] 100 mg/dL High 74-99 [facility] Comment on above: Order Comment: Speci men Type: BLOOD SPECIMENOrdering Facility: [facility] Address: [address] [place] [address] Result Comment: The [place] Diabetes Association (ADA) provides guidance for cutoff values for fasting glucose and random glucose. The ADA defines fasting as no caloric intake for at least 8 hours. Fasting plasma glucose results between 100 to 125 mg/dL indicate increased risk for diabetes (prediabetes).Fasting plasma glucose results greater than or equal to 126 mg/dL meet the criteria for diagnosis of diabetes. In the absence of unequivocal hyperglycemia, results should be confirmed by repeat testing. In a patient with classic symptoms of hyperglycemia or hyperglycemic crisis, random plasma glucose results greater than or equal to 200 mg/dL meet the criteria for diagnosis of diabetes.Reference: Standards of Medical Care in Diabetes 2016, [place] Diabetes Association. Diabetes Care. 2016.39(Suppl 1). Performed By: #### 2 777-1, , ####[facility] LABCLIA [id number] [place] [address] Potassium [Moles/Vol] 4.0 mmol/L Normal 3.7-5.1 [facility] Comment on above: Order Comment: Speci men Type: BLOOD SPECIMENOrdering Facility: [facility] Address: [address] [place] [address] Performed By: #### 2 777-1, 38870-8, ####[facility] LABIA [id number] [place] [address] Protein [Mass/Vol] 7.1 g/dL Normal 6.3-8.0 [facility] Comment on above: Order Comment: Speci men Type: BLOOD SPECIMENOrdering Facility: [facility] Address: [address] [place] [address] Performed By: #### 2 777-1, 81882-0, ####[facility] LABCLIA [id number] [place] [address] Sodium [Moles/Vol] 136 mmol/L Normal 136-144 [facility] Comment on above: Order Comment: Speci men Type: BLOOD SPECIMENOrdering Facility: [facility] Address: [address] [place], [place] [address] Performed By: #### 2 777-1, 25424-3, ####[facility] LABCLIA [id number] [place] [address] Urea nitrogen [Mass/Vol] 16 mg/dL Normal 7-21 [facility] Comment on above: Order Comment: Speci men Type: BLOOD SPECIMENOrdering Facility: [facility] Address: [address] [place], [place] [address] Performed By: #### 2 777-1, , ####[facility] LABCLIA [id number] [place] [address] Iron and Iron binding capaci ty panelon 03-22-2025 Iron [Mass/Vol] 48 ug/dL Normal 41-186 [facility] Comment on above: Order Comment: Speci men Type: BLOOD SPECIMENOrdering Facility: [facility] Address: [address] [place] [address] Performed By: #### 1 988-5, 51511-8, 3015-3 ####[facility] LABCLIA [id number] [address] [address] [place] Iron binding capacity [Mass/Vol] 410 ug/dL High 232-386 [facility] Comment on above: Order Comment: Speci men Type: BLOOD SPECIMENOrdering Facility: [facility] Address: [address] [place], [place] [address] Performed By: #### 1 988-5, 89117-5, 3015-3 ####[facility] LABCLIA [id number] [address] [address] [place] Iron/TIBC [Molar ratio] 11.7 % Low 15.0-57.0 [facility] Comment on above: Order Comment: Speci men Type: BLOOD SPECIMENOrdering Facility: [facility] Address: [address] [place] [address] Performed By: #### 1 988-5, 04579-4, 3016-3 ####[facility] LABCLIA [id number] [address] [address] [place] Magnesium SerPl-mCncon 03-22 Magnesium [Mass/Vol] 1.8 mg/dL Normal 1.7-2.3 [facility] Comment on above: Order Comment: Speci men Type: BLOOD SPECIMENOrdering Facility: [facility] Address: [address] [place] [address] Performed By: #### 2 777-1, 47079-5, 84866-5 ####[facility] LABCLIA [id number] [place] [address] Phosphate SerPl-mCncon 03-22 Phosphate [Mass/Vol] 3.8 mg/dL Normal 2.7-4.8 [facility] Comment on above: Order Comment: Speci men Type: BLOOD SPECIMENOrdering Facility: [facility] Address: [address] [place] [address] Performed By: #### 2 777-1, 36326-5, 06744-7 ####[facility] LABCLIA [id number] [place] [address] TSH SerPl-aCncon 03-22-2025 TSH Qn 1.490 m[IU]/L Normal 0.270-4.200 [facility] Comment on above: Order Comment: Speci men Type: BLOOD SPECIMENOrdering Facility: [facility] Address: [address] [place] [address] Result Comment: If t he patient is , TSH reference range varies by gestational period:First Trimester (weeks 9-12): 0.180-2.990 mIU/LSecond Trimester: 0.110-3.980 mIU/LThird Trimester: 0.480-4.710 mIU/Candelario Nova et al. A Practical Approach for the Verifications and Determination of Site- and Trimester-Specific Reference Intervals for Thyroid Function tests in . Thyroid, 2019:29:3:412-420. Wilver Acevedo, et al. 2017 Guidelines of the [place] Thyroid Association for the Diagnosis and Management of Thyroid Disease during and the . Thyroid, 2017:27:3:315-389. Performed By: #### 1 988-5, 59912-3, 3016-3 ####[facility] LABIA [id number] [place] [address] [place] C diff Tox gens Stl Ql CARLOTTA+p robeon 03-14-2025 C. difficile toxin genes CARLOTTA+probe Ql (Stl) Negative Normal Negative for C. difficile toxin by PCR [facility] Comment on above: Order Comment: Speci men Type: STOOL SPECIMENOrdering Facility: [facility] Address: [address] [place] [address] Performed By: #### 5 4067-4 ####[facility] [id number] [place] [address] [place] Gastrointestinal pathogens i dentified CARLOTTA+probe Nom (Stl)on 03-14-2025 Campylobacter sp DNA CARLOTTA+probe Nom (Unsp spec) Not detected Normal Not Detected [facility] Comment on above: Order Comment: Speci men Type: STOOL SPECIMENOrdering Facility: [facility] Address: [address] [place] [address] Performed By: #### 7 9390-1 ####[facility] LABIA [id number] [place] [address] [place] Salmonella sp DNA CARLOTTA+probe Ql (Unsp spec) Not detected Normal Not Detected [facility] Comment on above: Order Comment: Speci men Type: STOOL SPECIMENOrdering Facility: [facility] Address: [address] [place] [address] Performed By: #### 7 9390-1 ####[facility] LABCLIA [id number] [address] [place] Shiga toxin stx gene CARLOTTA+probe Nom (Unsp spec) Not detected Normal Not Detected [facility] Comment on above: Order Comment: Speci men Type: STOOL SPECIMENOrdering Facility: [facility] Address: [address] [place] [address] Performed By: #### 7 9390-1 ####[facility] LABCLIA [id number] [address] [place] Shigella sp DNA CARLOTTA+probe Ql (Unsp spec) Not detected Normal Not Detected [facility] Comment on above: Order Comment: Speci men Type: STOOL SPECIMENOrdering Facility: [facility] Address: [address] [place] [address] Performed By: #### 7 9390-1 ####[facility] LABCLIA [id number] [place] [address] [place] CNPNon 03-09-2025 CNPN Normal [facility] CNPNon 03-08-2025 CNPN Normal [facility] CBC panel Auto (Bld)on 03-06 Erythrocyte distribution width (RBC) [Ratio] 12.3 % Normal 11.5-15.0 [facility] Comment on above: Order Comment: Speci men Type: BLOOD SPECIMENOrdering Facility: [facility] Address: [address] [place] [address] Performed By: #### 5 8410-2 ####[facility] LABCLIA [id number] [place] [address] Hematocrit (Bld) [Volume fraction] 31.3 % Low 36.0-46.0 [facility] Comment on above: Order Comment: Speci men Type: BLOOD SPECIMENOrdering Facility: [facility] Address: [address] [place] [address] Performed By: #### 5 8410-2 ####[facility] LABCLIA [id number] [place] [address] Hemoglobin (Bld) [Mass/Vol] 10.4 g/dL Low 11.5-15.5 [facility] Comment on above: Order Comment: Speci men Type: BLOOD SPECIMENOrdering Facility: [facility] Address: [address] [place] [address] Performed By: #### 5 8410-2 ####[facility] LABCLIA [id number] [place] [address] MCH (RBC) [Entitic mass] 29.5 pg Normal 26.0-34.0 [facility] Comment on above: Order Comment: Speci men Type: BLOOD SPECIMENOrdering Facility: [facility] Address: [address] [place] [address] Performed By: #### 5 8410-2 ####[facility] LABCLIA [id number] [place] [address] MCHC (RBC) [Mass/Vol] 33.2 g/dL Normal 30.5-36.0 [facility] Comment on above: Order Comment: Speci men Type: BLOOD SPECIMENOrdering Facility: [facility] Address: [address] [place] [address] Performed By: #### 5 8410-2 ####[facility] LABCLIA [id number] [place] [address] MCV (RBC) [Entitic vol] 88.9 fL Normal 80.0-100.0 [facility] Comment on above: Order Comment: Speci men Type: BLOOD SPECIMENOrdering Facility: [facility] Address: [address] [place] [address] Performed By: #### 5 8410-2 ####[facility] LABCLIA [id number] [place] [address] Nucleated RBC (Bld) [#/Vol] 10*3/uL Normal <0.01 [facility] Comment on above: Order Comment: Speci men Type: BLOOD SPECIMENOrdering Facility: [facility] Address: [address] [place] [address] Performed By: #### 5 8410-2 ####[facility] LABCLIA [id number] [place] [address] Platelet mean volume (Bld) [Entitic vol] 11.1 fL Normal 9.0-12.7 [facility] Comment on above: Order Comment: Speci men Type: BLOOD SPECIMENOrdering Facility: [facility] Address: [address] [place] [address] Performed By: #### 5 8410-2 ####[facility] LABCLIA [id number] [place] [address] Platelets (Bld) [#/Vol] 369 10*3/uL Normal 150-400 [facility] Comment on above: Order Comment: Speci men Type: BLOOD SPECIMENOrdering Facility: [facility] Address: [address] [place] [address] Performed By: #### 5 8410-2 ####[facility] LABCLIA [id number] [place] [address] RBC (Bld) [#/Vol] 3.52 10*6/uL Low 3.90-5.20 [facility] Comment on above: Order Comment: Speci men Type: BLOOD SPECIMENOrdering Facility: [facility] Address: [address] [place] [address] Performed By: #### 5 8410-2 ####[facility] LABCLIA [id number] [place] [address] WBC (Bld) [#/Vol] 6.32 10*3/uL Normal 3.70-11.00 [facility] Comment on above: Order Comment: Speci men Type: BLOOD SPECIMENOrdering Facility: [facility] Address: [address] [place] [address] Performed By: #### 5 8410-2 ####[facility] LABIA [id number] [place] [address] CNPNon 03-06-2025 CNPN Normal [facility] Comprehensive metabolic 2000 panelon 03-06-2025 Albumin [Mass/Vol] 4.1 g/dL Normal 3.9-4.9 [facility] Comment on above: Order Comment: Speci men Type: BLOOD SPECIMENOrdering Facility: [facility] Address: [address] [place], [place] [address] Performed By: #### 2 777-1, , ####[facility] LABIA [id number] [place] [address] ALP [Catalytic activity/Vol] 102 U/L Normal 34-123 [facility] Comment on above: Order Comment: Speci men Type: BLOOD SPECIMENOrdering Facility: [facility] Address: [address] [place] [address] Performed By: #### 2 777-1, , ####[facility] LABIA [id number] [place] [address] ALT [Catalytic activity/Vol] 16 U/L Normal 7-38 [facility] Comment on above: Order Comment: Speci men Type: BLOOD SPECIMENOrdering Facility: [facility] Address: [address] [place] [address] Performed By: #### 2 777-1, , ####[facility] LABIA [id number] [place] [address] Anion gap [Moles/Vol] 15 mmol/L Normal 8-15 [facility] Comment on above: Order Comment: Speci men Type: BLOOD SPECIMENOrdering Facility: [facility] Address: [address] [place] [address] Performed By: #### 2 777-1, , ####[facility] LABCLIA [id number] [place] [address] AST [Catalytic activity/Vol] 18 U/L Normal 13-35 [facility] Comment on above: Order Comment: Speci men Type: BLOOD SPECIMENOrdering Facility: [facility] Address: [address] [place] [address] Performed By: #### 2 777-1, , ####[facility] LABCLIA [id number] [place] [address] Bilirubin [Mass/Vol] 0.3 mg/dL Normal 0.2-1.3 [facility] Comment on above: Order Comment: Speci men Type: BLOOD SPECIMENOrdering Facility: [facility] Address: [address] [place] [address] Performed By: #### 2 777-1, , ####[facility] LABIA [id number] [place] [address] Calcium [Mass/Vol] 9.1 mg/dL Normal 8.5-10.2 [facility] Comment on above: Order Comment: Speci men Type: BLOOD SPECIMENOrdering Facility: [facility] Address: [address] [place] [address] Performed By: #### 2 777-1, , ####[facility] LABCLIA [id number] [place] [address] Chloride [Moles/Vol] 101 mmol/L Normal 98-107 [facility] Comment on above: Order Comment: Speci men Type: BLOOD SPECIMENOrdering Facility: [facility] Address: [address] [place] [address] Performed By: #### 2 777-1, , ####[facility] LABCLIA [id number] [place] [address] CO2 [Moles/Vol] 22 mmol/L Normal 22-30 [facility] Comment on above: Order Comment: Speci men Type: BLOOD SPECIMENOrdering Facility: [facility] Address: [address] [place] [address] Performed By: #### 2 777-1, , ####[facility] LABIA [id number] [place] [address] Creatinine [Mass/Vol] 0.54 mg/dL Low 0.58-0.96 [facility] Comment on above: Order Comment: Speci men Type: BLOOD SPECIMENOrdering Facility: [facility] Address: [address] [place] [address] Performed By: #### 2 777-1, , ####[facility] [id number] [place] [address] eGFRcr SerPlBld CKD-EPI 2020 122 mL/min/1.73m??? Normal >=60 [facility] Comment on above: Order Comment: Speci men Type: BLOOD SPECIMENOrdering Facility: [facility] Address: [address] [place] [address] Result Comment: Desiree mated Glomerular Filtration Rate (eGFR) is calculated using the 2020 CKD-EPI creatinine equation. This equation utilizes serum creatinine, sex, and age as parameters. The creatinine assay has traceable calibration to isotope dilution-mass spectrometry. Refer to KDIGO guidelines for clinical interpretation. In patients with unstable renal function, e.g. those with acute kidney injury, the eGFR may not accurately reflect actual GFR. Performed By: #### 2 777-1, , ####[facility] LABIA [id number] [place] [address] Glucose [Mass/Vol] 107 mg/dL High 74-99 [facility] Comment on above: Order Comment: Speci men Type: BLOOD SPECIMENOrdering Facility: [facility] Address: [address] [id number] Result Comment: The [place] Diabetes Association (ADA) provides guidance for cutoff values for fasting glucose and random glucose. The ADA defines fasting as no caloric intake for at least 8 hours. Fasting plasma glucose results between 100 to 125 mg/dL indicate increased risk for diabetes (prediabetes).Fasting plasma glucose results greater than or equal to 126 mg/dL meet the criteria for diagnosis of diabetes. In the absence of unequivocal hyperglycemia, results should be confirmed by repeat testing. In a patient with classic symptoms of hyperglycemia or hyperglycemic crisis, random plasma glucose results greater than or equal to 200 mg/dL meet the criteria for diagnosis of diabetes.Reference: Standards of Medical Care in Diabetes 2016, [place] Diabetes Association. Diabetes Care. 2016.39(Suppl 1). Performed By: #### 2 777-1, , ####[facility] LABCLIA [id number] [place] [address] Potassium [Moles/Vol] 4.3 mmol/L Normal 3.7-5.1 [facility] Comment on above: Order Comment: Speci men Type: BLOOD SPECIMENOrdering Facility: [facility] Address: [address] [place] [address] Performed By: #### 2 777-1, , ####[facility] LABCLIA [id number] [place] [address] Protein [Mass/Vol] 7.2 g/dL Normal 6.3-8.0 [facility] Comment on above: Order Comment: Speci men Type: BLOOD SPECIMENOrdering Facility: [facility] Address: [address] [place], [place] [address] Performed By: #### 2 777-1, , ####[facility] LABCLIA [id number] [place] [address] Sodium [Moles/Vol] 138 mmol/L Normal 136-144 [facility] Comment on above: Order Comment: Speci men Type: BLOOD SPECIMENOrdering Facility: [facility] Address: [address] [place] [address] Performed By: #### 2 777-1, , ####[facility] LABCLIA [id number] [place] [address] Urea nitrogen [Mass/Vol] 22 mg/dL High 7-21 [facility] Comment on above: Order Comment: Speci men Type: BLOOD SPECIMENOrdering Facility: [facility] Address: [address] [place], [place] [address] Performed By: #### 2 777-1, , ####[facility] LABCLIA [id number] [place] [address] Magnesium SerPl-ncon 03-06 Magnesium [Mass/Vol] 2.0 mg/dL Normal 1.7-2.3 [facility] Comment on above: Order Comment: Speci men Type: BLOOD SPECIMENOrdering Facility: [facility] Address: [address] [place] [address] Performed By: #### 2 777-1, , ####[facility] LABCLIA [id number] [place] [address] Phosphate SerPl-mCncon 03-06 Phosphate [Mass/Vol] 4.3 mg/dL Normal 2.7-4.8 [facility] Comment on above: Order Comment: Speci men Type: BLOOD SPECIMENOrdering Facility: [facility] Address: [address] [place] [address] Performed By: #### 2 777-1, , ####[facility] LABCLIA [id number] [place] [address] CBC panel Auto (Bld)on 03-02 Erythrocyte distribution width (RBC) [Ratio] 12.8 % 11.5 - 15.0 % [facility] Hematocrit (Bld) [Volume fraction] 32.1 % Low 36.0 - 46.0 % [facility] Hemoglobin (Bld) [Mass/Vol] 10.6 g/dL Low 11.5 - 15.5 g/dL [facility] Interpretation and review of laboratory results Abnormal [facility] MCH (RBC) [Entitic mass] 29.7 pg 26.0 - 34.0 pg [facility] MCHC (RBC) [Mass/Vol] 33.0 g/dL 30.5 - 36.0 g/dL [facility] MCV (RBC) [Entitic vol] 89.9 fL 80.0 - 100.0 fL [facility] Nucleated RBC (Bld) [#/Vol] NINF [facility] Platelet mean volume (Bld) [Entitic vol] 10.5 fL 9.0 - 12.7 fL [facility] Platelets (Bld) [#/Vol] 401 10*3/uL High [facility] RBC (Bld) [#/Vol] 3.57 10*6/uL Low 3.90 - 5.20 m/uL [facility] WBC (Bld) [#/Vol] 7.63 10*3/uL [facility] Erythrocyte distribution width (RBC) [Ratio] 12.8 % Normal 11.5-15.0 [facility] Comment on above: Order Comment: Speci men Type: BLOOD SPECIMENOrdering Facility: [facility] Address: [address] [place] [address] Performed By: #### 5 8410-2 ####[facility] LABIA [id number] [place] [address] Hematocrit (Bld) [Volume fraction] 32.1 % Low 36.0-46.0 [facility] Comment on above: Order Comment: Speci men Type: BLOOD SPECIMENOrdering Facility: [facility] Address: [address] [place] [address] Performed By: #### 5 8410-2 ####[facility] LABCLIA [id number] [place] [address] Hemoglobin (Bld) [Mass/Vol] 10.6 g/dL Low 11.5-15.5 [facility] Comment on above: Order Comment: Speci men Type: BLOOD SPECIMENOrdering Facility: [facility] Address: [address] [place] [address] Performed By: #### 5 8410-2 ####[facility] LABCLIA [id number] [place] [address] MCH (RBC) [Entitic mass] 29.7 pg Normal 26.0-34.0 [facility] Comment on above: Order Comment: Speci men Type: BLOOD SPECIMENOrdering Facility: [facility] Address: [address] [place] [address] Performed By: #### 5 8410-2 ####[facility] LABCLIA [id number] [place] [address] MCHC (RBC) [Mass/Vol] 33.0 g/dL Normal 30.5-36.0 [facility] Comment on above: Order Comment: Speci men Type: BLOOD SPECIMENOrdering Facility: [facility] Address: [address] [place] [address] Performed By: #### 5 8410-2 ####[facility] LABCLIA [id number] [place] [address] MCV (RBC) [Entitic vol] 89.9 fL Normal 80.0-100.0 [facility] Comment on above: Order Comment: Speci men Type: BLOOD SPECIMENOrdering Facility: [facility] Address: [address] [place] [address] Performed By: #### 5 8410-2 ####[facility] LABCLIA [id number] [place] [address] Nucleated RBC (Bld) [#/Vol] 10*3/uL Normal <0.01 [facility] Comment on above: Order Comment: Speci men Type: BLOOD SPECIMENOrdering Facility: [facility] Address: [address] [place] [address] Performed By: #### 5 8410-2 ####[facility] LABCLIA [id number] [place] [address] Platelet mean volume (Bld) [Entitic vol] 10.5 fL Normal 9.0-12.7 [facility] Comment on above: Order Comment: Speci men Type: BLOOD SPECIMENOrdering Facility: [facility] Address: [address] [place] [address] Performed By: #### 5 8410-2 ####[facility] LABCLIA [id number] [place] [address] Platelets (Bld) [#/Vol] 401 10*3/uL High 150-400 [facility] Comment on above: Order Comment: Speci men Type: BLOOD SPECIMENOrdering Facility: [facility] Address: [address] [place] [address] Performed By: #### 5 8410-2 ####[facility] LABCLIA [id number] [place] [address] RBC (Bld) [#/Vol] 3.57 10*6/uL Low 3.90-5.20 [facility] Comment on above: Order Comment: Speci men Type: BLOOD SPECIMENOrdering Facility: [facility] Address: [address] [place] [address] Performed By: #### 5 8410-2 ####[facility] LABCLIA [id number] [place] [address] WBC (Bld) [#/Vol] 7.63 10*3/uL Normal 3.70-11.00 [facility] Comment on above: Order Comment: Speci men Type: BLOOD SPECIMENOrdering Facility: [facility] Address: [address] [place] [address] Performed By: #### 5 8410-2 ####[facility] LABCLIA [id number] [place] [address] CNOVon 03-02-2025 CNOV Normal [facility] metabolic 2000 panelOrdered By: Raheem Pozo on 03-02-2025 Albumin [Mass/Vol] 3.9 g/dL 3.9 - 4.9 g/dL [facility] ALP [Catalytic activity/Vol] 133 U/L High 34 - 123 U/L [facility] ALT [Catalytic activity/Vol] 27 U/L 7 - 38 U/L [facility] Anion gap [Moles/Vol] 11 mmol/L 8 - 15 mmol/L [facility] AST [Catalytic activity/Vol] 39 U/L High 13 - 35 U/L [facility] Bilirubin [Mass/Vol] 0.4 mg/dL 0.2 - 1.3 mg/dL [facility] Calcium [Mass/Vol] 9.2 mg/dL 8.5 - 10.2 mg/dL [facility] Chloride [Moles/Vol] 99 mmol/L 98 - 107 mmol/L [facility] CO2 [Moles/Vol] 23 mmol/L 22 - 30 mmol/L [facility] Creatinine [Mass/Vol] 0.61 mg/dL 0.58 - 0.96 mg/dL [facility] GFR/1.73 sq M.predicted among non-blacks MDRD (S/P/Bld) [Vol rate/Area] 118 mL/min/{1.73_m2} - PINF [facility] Comment on above: Estimated Glomerular Filtration Rate (eGFR) is calculated using the 2020 CKD-EPI creatinine equation. This equation utilizes serum creatinine, sex, and age as parameters. The creatinine assay has traceable calibration to isotope dilution-mass spectrometry. Refer to KDIGO guidelines for clinical interpretation. In patients with unstable renal function, e.g. those with acute kidney injury, the eGFR may not accurately reflect actual GFR. Glucose [Mass/Vol] 104 mg/dL High 74 - 99 mg/dL [facility] Comment on above: The [place] Diabete s Association (ADA) provides guidance for cutoff values for fasting glucose and random glucose. The ADA defines fasting as no caloric intake for at least 8 hours. Fasting plasma glucose results between 100 to 125 mg/dL indicate increased risk for diabetes (prediabetes). Fasting plasma glucose results greater than or equal to 126 mg/dL meet the criteria for diagnosis of diabetes. In the absence of unequivocal hyperglycemia, results should be confirmed by repeat testing. In a patient with classic symptoms of hyperglycemia or hyperglycemic crisis, random plasma glucose results greater than or equal to 200 mg/dL meet the criteria for diagnosis of diabetes. Reference: Standards of Medical Care in Diabetes 2016, [place] Diabetes Association. Diabetes Care. 2016.39(Suppl 1). Interpretation and review of laboratory results Abnormal [facility] Potassium [Moles/Vol] 4.1 mmol/L 3.7 - 5.1 mmol/L [facility] Protein [Mass/Vol] 7.4 g/dL 6.3 - 8.0 g/dL Cl [facility] Sodium [Moles/Vol] 133 mmol/L Low 136 - 144 mmol/L [facility] Urea nitrogen [Mass/Vol] 15 mg/dL 7 - 21 mg/dL [facility] Comprehensive metabolic 2000 panelon 03-02-2025 Albumin [Mass/Vol] 3.9 g/dL Normal 3.9-4.9 [facility] Comment on above: Order Comment: Speci men Type: BLOOD SPECIMENOrdering Facility: [facility] Address: [address] [place] [address] Performed By: #### 2 4323-8, 27701-02, ####[facility] LABCLIA [id number] [place] [address] ALP [Catalytic activity/Vol] 133 U/L High 34-123 [facility] Comment on above: Order Comment: Speci men Type: BLOOD SPECIMENOrdering Facility: [facility] Address: [address] [place] [address] Performed By: #### 2 4323-8, 27701-02, ####[facility] LABCLIA [id number] [place] [address] ALT [Catalytic activity/Vol] 27 U/L Normal 7-38 [facility] Comment on above: Order Comment: Speci men Type: BLOOD SPECIMENOrdering Facility: [facility] Address: [address] [place] [address] Performed By: #### 2 4323-8, 27701-02, ####[facility] LABCLIA [id number] [place] [address] Anion gap [Moles/Vol] 11 mmol/L Normal 8-15 [facility] Comment on above: Order Comment: Speci men Type: BLOOD SPECIMENOrdering Facility: [facility] Address: [address] [place] [address] Performed By: #### 2 4323-8, 27701-02, ####[facility] LABCLIA [id number] [place] [address] AST [Catalytic activity/Vol] 39 U/L High 13-35 [facility] Comment on above: Order Comment: Speci men Type: BLOOD SPECIMENOrdering Facility: [facility] Address: [address] [place] [address] Performed By: #### 2 4323-8, 2776-07, ####[facility] LABCLIA [id number] [place] [address] Bilirubin [Mass/Vol] 0.4 mg/dL Normal 0.2-1.3 [facility] Comment on above: Order Comment: Speci men Type: BLOOD SPECIMENOrdering Facility: [facility] Address: [address] [place] [address] Performed By: #### 2 4323-8, 2776-07, ####[facility] LABCLIA [id number] [place] [address] Calcium [Mass/Vol] 9.2 mg/dL Normal 8.5-10.2 [facility] Comment on above: Order Comment: Speci men Type: BLOOD SPECIMENOrdering Facility: [facility] Address: [address] [place] [address] Performed By: #### 2 4323-8, 2776-07, ####[facility] LABCLIA [id number] [place] [address] Chloride [Moles/Vol] 99 mmol/L Normal 98-107 [facility] Comment on above: Order Comment: Speci men Type: BLOOD SPECIMENOrdering Facility: [facility] Address: [address] [place], [place] [address] Performed By: #### 2 4323-8, 2777, ####[facility] LABCLIA [id number] [place] [address] CO2 [Moles/Vol] 23 mmol/L Normal 22-30 [facility] Comment on above: Order Comment: Speci men Type: BLOOD SPECIMENOrdering Facility: [facility] Address: [address] [place], [place] [address] Performed By: #### 2 4323-8, 27701-02, ####[facility] LABCLIA [id number] [place] [address] Creatinine [Mass/Vol] 0.61 mg/dL Normal 0.58-0.96 [facility] Comment on above: Order Comment: Speci men Type: BLOOD SPECIMENOrdering Facility: [facility] Address: [address] [place] [address] Performed By: #### 2 4323-8, 27701-02, ####[facility] LABCLIA [id number] [place] [address] eGFRcr SerPlBld CKD-EPI 2020 118 mL/min/1.73m??? Normal >=60 [facility] Comment on above: Order Comment: Speci men Type: BLOOD SPECIMENOrdering Facility: [facility] Address: [address] [place], [place] [address] Result Comment: Desiree mated Glomerular Filtration Rate (eGFR) is calculated using the 2020 CKD-EPI creatinine equation. This equation utilizes serum creatinine, sex, and age as parameters. The creatinine assay has traceable calibration to isotope dilution-mass spectrometry. Refer to KDIGO guidelines for clinical interpretation. In patients with unstable renal function, e.g. those with acute kidney injury, the eGFR may not accurately reflect actual GFR. Performed By: #### 2 4323-8, 2777, ####[facility] LABCLIA [id number] [place] [address] Glucose [Mass/Vol] 104 mg/dL High 74-99 [facility] Comment on above: Order Comment: Speci men Type: BLOOD SPECIMENOrdering Facility: [facility] Address: [address] [place] [address] Result Comment: The [place] Diabetes Association (ADA) provides guidance for cutoff values for fasting glucose and random glucose. The ADA defines fasting as no caloric intake for at least 8 hours. Fasting plasma glucose results between 100 to 125 mg/dL indicate increased risk for diabetes (prediabetes).Fasting plasma glucose results greater than or equal to 126 mg/dL meet the criteria for diagnosis of diabetes. In the absence of unequivocal hyperglycemia, results should be confirmed by repeat testing. In a patient with classic symptoms of hyperglycemia or hyperglycemic crisis, random plasma glucose results greater than or equal to 200 mg/dL meet the criteria for diagnosis of diabetes.Reference: Standards of Medical Care in Diabetes 2016, [place] Diabetes [employer]. Diabetes Care. 2016.39(Suppl 1). Performed By: #### 2 4323-8, 2777-, ####[facility] LABCLIA [id number] [place] [address] Potassium [Moles/Vol] 4.1 mmol/L Normal 3.7-5.1 [facility] Comment on above: Order Comment: Speci men Type: BLOOD SPECIMENOrdering Facility: [facility] Address: [address] [place] [address] Performed By: #### 2 4323-8, 27701-02, ####[facility] LABIA [id number] [place] [address] Protein [Mass/Vol] 7.4 g/dL Normal 6.3-8.0 [facility] Comment on above: Order Comment: Speci men Type: BLOOD SPECIMENOrdering Facility: [facility] Address: [address] [place] [address] Performed By: #### 2 4323-8, 27701-02, ####[facility] LABCLIA [id number] [place] [address] Sodium [Moles/Vol] 133 mmol/L Low 136-144 [facility] Comment on above: Order Comment: Speci men Type: BLOOD SPECIMENOrdering Facility: [facility] Address: [address] [place] [address] Performed By: #### 2 4323-8, 27701-02, ####[facility] LABCLIA [id number] [place] [address] Urea nitrogen [Mass/Vol] 15 mg/dL Normal 7-21 [facility] Comment on above: Order Comment: Speci men Type: BLOOD SPECIMENOrdering Facility: [facility] Address: [address] [place], [place] [address] Performed By: #### 2 4323-8, 27701-02, ####[facility] LABCLIA [id number] [place] [address] MAGNESIUMon 03-02-2025 Magnesium [Mass/Vol] 1.9 mg/dL 1.7 - 2.3 mg/dL [facility] Magnesium SerPl-mCncon 03-02 Magnesium [Mass/Vol] 1.9 mg/dL Normal 1.7-2.3 [facility] Comment on above: Order Comment: Speci men Type: BLOOD SPECIMENOrdering Facility: [facility] Address: [address] [place], [place] [address] Performed By: #### 2 4323-8, 27701-02, ####[facility] LABCLIA [id number] [place] [address] Magnesium [Mass/Vol]on 03-02 Interpretation and review of laboratory results Normal [facility] PHOSPHORUS INORGANICon 03-02 Phosphate [Mass/Vol] 4.1 mg/dL 2.7 - 4.8 mg/dL [facility] Phosphate SerPl-mCncon 03-02 Phosphate [Mass/Vol] 4.1 mg/dL Normal 2.7-4.8 [facility] Comment on above: Order Comment: Speci men Type: BLOOD SPECIMENOrdering Facility: [facility] Address: [address] [place] [address] Performed By: #### 2 4323-8, 2777-1, 43090-0 ####[facility] [facility] LABCL[facility] [id number] [place] [address] Phosphate [Mass/Vol]on 03-02 Interpretation and review of laboratory results Normal [facility] CNPNon 02-26-2025 CNPN Normal [facility] CASE MANAGEMon 02-23-2025 CASE MANAGEM Normal [facility] CBC panel Auto (Bld)on 02-23 Erythrocyte distribution width (RBC) [Ratio] 13.2 % Normal 11.5-15.0 [facility] Comment on above: Order Comment: Speci men Type: BLOOD SPECIMENOrdering Facility: [facility] Address: [address] [place] [address] Performed By: #### 5 8410-2 ####[facility] LABCLIA [id number] [place] [address] [place] Hematocrit (Bld) [Volume fraction] 27.6 % Low 36.0-46.0 [facility] Comment on above: Order Comment: Speci men Type: BLOOD SPECIMENOrdering Facility: [facility] Address: [address] [place] [address] Performed By: #### 5 8410-2 ####[facility] LABCLIA [id number] [place] [id number] [place] Hemoglobin (Bld) [Mass/Vol] 9.3 g/dL Low 11.5-15.5 [facility] Comment on above: Order Comment: Speci men Type: BLOOD SPECIMENOrdering Facility: [facility] Address: [address] [place] [address] Performed By: #### 5 8410-2 ####[facility] LABIA [id number] [place] [address] [place] MCH (RBC) [Entitic mass] 30.1 pg Normal 26.0-34.0 [facility] Comment on above: Order Comment: Speci men Type: BLOOD SPECIMENOrdering Facility: [facility] Address: [address] [place] [address] Performed By: #### 5 8410-2 ####[facility] LABIA [id number] [place] [address] [place] MCHC (RBC) [Mass/Vol] 33.7 g/dL Normal 30.5-36.0 [facility] Comment on above: Order Comment: Speci men Type: BLOOD SPECIMENOrdering Facility: [facility] Address: [address] [place] [address] Performed By: #### 5 8410-2 ####[facility] [id number] [place] [address] [place] MCV (RBC) [Entitic vol] 89.3 fL Normal 80.0-100.0 [facility] Comment on above: Order Comment: Speci men Type: BLOOD SPECIMENOrdering Facility: [facility] Address: [address] [place] [address] Performed By: #### 5 8410-2 ####[facility] [id number] [place] [address] [place] Nucleated RBC (Bld) [#/Vol] 10*3/uL Normal <0.01 [facility] Comment on above: Order Comment: Speci men Type: BLOOD SPECIMENOrdering Facility: [facility] Address: [address] [place] [address] Performed By: #### 5 8410-2 ####[facility] [id number] [place] [address] [place] Platelet mean volume (Bld) [Entitic vol] 10.5 fL Normal 9.0-12.7 [facility] Comment on above: Order Comment: Speci men Type: BLOOD SPECIMENOrdering Facility: [facility] Address: [address] [place] [address] Performed By: #### 5 8410-2 ####[facility] LABCLIA [id number] [place] [address] [place] Platelets (Bld) [#/Vol] 268 10*3/uL Normal 150-400 [facility] Comment on above: Order Comment: Speci men Type: BLOOD SPECIMENOrdering Facility: [facility] Address: [address] [place] [address] Performed By: #### 5 8410-2 ####[facility] LABCLIA [id number] [place] [address] [place] RBC (Bld) [#/Vol] 3.09 10*6/uL Low 3.90-5.20 [facility] Comment on above: Order Comment: Speci men Type: BLOOD SPECIMENOrdering Facility: [facility] Address: [address] [place] [address] Performed By: #### 5 8410-2 ####[facility] LABCLIA [id number] [place] [address] [place] WBC (Bld) [#/Vol] 6.34 10*3/uL Normal 3.70-11.00 [facility] Comment on above: Order Comment: Speci men Type: BLOOD SPECIMENOrdering Facility: [facility] Address: [address] [place] [address] Performed By: #### 5 8410-2 ####[facility] LABCLIA [id number] [place] [id number] [place] CNDSon 02-23-2025 CNDS Normal [facility] CONSULT PROGon 02-23-2025 CONSULT PROG Normal [facility] CRP SerPl-mCncon 02-23-2025 CRP [Mass/Vol] 7.0 mg/dL High <0.9 [facility] Comment on above: Order Comment: Speci men Type: BLOOD SPECIMENOrdering Facility: [facility] Address: [address] [place] [address] Performed By: #### 1 988-5, 86809-8 ####[facility] LABCLIA [id number] [address] [address] [place] [facility] Albumin [Mass/Vol] 3.1 g/dL Low 3.9-4.9 [facility] Comment on above: Order Comment: Speci men Type: BLOOD SPECIMENOrdering Facility: [facility] Address: [address] [place] [address] Performed By: #### 1 988-5, 49040-8 ####[facility] LABCLIA [id number] [address], [facility]95 [place] Anion gap [Moles/Vol] 14 mmol/L Normal 8-15 [facility] Comment on above: Order Comment: Speci men Type: BLOOD SPECIMENOrdering Facility: [facility] Address: [address] [place] [address] Performed By: #### 1 988-5, 77670-7 ####[facility] LABCLIA [id number] [place] [address] [place] Calcium [Mass/Vol] 9.0 mg/dL Normal 8.5-10.2 [facility] Comment on above: Order Comment: Speci men Type: BLOOD SPECIMENOrdering Facility: [facility] Address: [address] [place] [address] Performed By: #### 1 988-5, 09301-4 ####[facility] LABCLIA [id number] [facility] [address] [place] [address] [place] Chloride [Moles/Vol] 101 mmol/L Normal 98-107 [facility] Comment on above: Order Comment: Speci men Type: BLOOD SPECIMENOrdering Facility: [facility] Address: [address] [place] [address] Performed By: #### 1 988-5, 19043-9 ####[facility] LABIA [id number] [address] [address] [place] CO2 [Moles/Vol] 22 mmol/L Normal 22-30 [facility] Comment on above: Order Comment: Speci men Type: BLOOD SPECIMENOrdering Facility: [facility] Address: [address] [place] [address] Performed By: #### 1 988-5, 20658-4 ####[facility] [id number] [place] [address] [place] Creatinine [Mass/Vol] 0.38 mg/dL Low 0.58-0.96 [facility] Comment on above: Order Comment: Speci men Type: BLOOD SPECIMENOrdering Facility: [facility] Address: [address] [place] [address] Performed By: #### 1 988-5, 67446-3 ####[facility] [id number] [address] [place] eGFRcr SerPlBld CKD-EPI 2020 133 mL/min/1.73m??? Normal >=60 [facility] Comment on above: Order Comment: Speci men Type: BLOOD SPECIMENOrdering Facility: [facility] Address: [address] [place] [address] Result Comment: Desiree mated Glomerular Filtration Rate (eGFR) is calculated using the 2020 CKD-EPI creatinine equation. This equation utilizes serum creatinine, sex, and age as parameters. The creatinine assay has traceable calibration to isotope dilution-mass spectrometry. Refer to KDIGO guidelines for clinical interpretation. In patients with unstable renal function, e.g. those with acute kidney injury, the eGFR may not accurately reflect actual GFR. Performed By: #### 1 988-5, 80127-5 ####[facility] LABCLIA [id number] [address] [address] [place] Glucose [Mass/Vol] 114 mg/dL High 74-99 [facility] Comment on above: Order Comment: Speci men Type: BLOOD SPECIMENOrdering Facility: [facility] Address: [address] [place] [address] Result Comment: The [place] [employer] (ADA) provides guidance for cutoff values for fasting glucose and random glucose. The ADA defines fasting as no caloric intake for at least 8 hours. Fasting plasma glucose results between 100 to 125 mg/dL indicate increased risk for diabetes (prediabetes).Fasting plasma glucose results greater than or equal to 126 mg/dL meet the criteria for diagnosis of diabetes. In the absence of unequivocal hyperglycemia, results should be confirmed by repeat testing. In a patient with classic symptoms of hyperglycemia or hyperglycemic crisis, random plasma glucose results greater than or equal to 200 mg/dL meet the criteria for diagnosis of diabetes.Reference: Standards of Medical Care in Diabetes 2016, [place] [employer]. Diabetes Care. 2016.39(Suppl 1). Performed By: #### 1 988-5, 52410-2 ####[facility] LABIA [id number] [place] [address] [place] Phosphate [Mass/Vol] 4.2 mg/dL Normal 2.7-4.8 [facility] Comment on above: Order Comment: Speci men Type: BLOOD SPECIMENOrdering Facility: [facility] Address: [address] [place] [address] Performed By: #### 1 988-5, 50515-9 ####[facility] LABIA [id number] [address] [address] [place] Potassium [Moles/Vol] 4.4 mmol/L Normal 3.7-5.1 [facility] Comment on above: Order Comment: Speci men Type: BLOOD SPECIMENOrdering Facility: [facility] Address: [address] [place] [address] Performed By: #### 1 988-5, 05353-3 ####[facility] LABCLIA [id number] [address] [address] [place] Sodium [Moles/Vol] 137 mmol/L Normal 136-144 [facility] Comment on above: Order Comment: Speci men Type: BLOOD SPECIMENOrdering Facility: [facility] Address: [address] [place] [address] Performed By: #### 1 988-5, 32960-9 ####[facility] LABCLIA [id number] [place] [address] [place] Urea nitrogen [Mass/Vol] 16 mg/dL Normal 7-21 [facility] Comment on above: Order Comment: Speci men Type: BLOOD SPECIMENOrdering Facility: [facility] Address: [address] [place] [address] Performed By: #### 1 988-5, 34781-9 ####[facility] LABCLIA [id number] [place] [address] [place] CASE MANAGEMon 02-22-2025 CASE MANAGEM Normal [facility] CBC panel Auto (Bld)on 02-22 Erythrocyte distribution width (RBC) [Ratio] 13.2 % Normal 11.5-15.0 [facility] Comment on above: Order Comment: Speci men Type: BLOOD SPECIMENOrdering Facility: [facility] Address: [address] [place] [address] Performed By: #### 5 8410-2 ####[facility] LABCLIA [id number] [place] [address] [place] Hematocrit (Bld) [Volume fraction] 26.5 % Low 36.0-46.0 [facility] Comment on above: Order Comment: Speci men Type: BLOOD SPECIMENOrdering Facility: [facility] Address: [address] [place] [address] Performed By: #### 5 8410-2 ####[facility] LABCLIA [id number] [place] [address] [place] Hemoglobin (Bld) [Mass/Vol] 8.6 g/dL Low 11.5-15.5 [facility] Comment on above: Order Comment: Speci men Type: BLOOD SPECIMENOrdering Facility: [facility] Address: [address] [place] [address] Performed By: #### 5 8410-2 ####[facility] LABIA [id number] [place] [address] [place] MCH (RBC) [Entitic mass] 29.8 pg Normal 26.0-34.0 [facility] Comment on above: Order Comment: Speci men Type: BLOOD SPECIMENOrdering Facility: [facility] Address: [address] [place] [address] Performed By: #### 5 8410-2 ####[facility] LABIA [id number] [address] [place] MCHC (RBC) [Mass/Vol] 32.5 g/dL Normal 30.5-36.0 [facility] Comment on above: Order Comment: Speci men Type: BLOOD SPECIMENOrdering Facility: [facility] Address: [address] [place] [address] Performed By: #### 5 8410-2 ####[facility] LABIA [id number] [place] [address] [place] MCV (RBC) [Entitic vol] 91.7 fL Normal 80.0-100.0 [facility] Comment on above: Order Comment: Speci men Type: BLOOD SPECIMENOrdering Facility: [facility] Address: [address] [place] [address] Performed By: #### 5 8410-2 ####[facility] LABCLIA [id number] [place] [address] [place] Nucleated RBC (Bld) [#/Vol] 10*3/uL Normal <0.01 [facility] Comment on above: Order Comment: Speci men Type: BLOOD SPECIMENOrdering Facility: [facility] Address: [address] [place] [address] Performed By: #### 5 8410-2 ####[facility] LABIA [id number] [place] [address] [place] Platelet mean volume (Bld) [Entitic vol] 10.6 fL Normal 9.0-12.7 [facility] Comment on above: Order Comment: Speci men Type: BLOOD SPECIMENOrdering Facility: [facility] Address: [address] [place] [address] Performed By: #### 5 8410-2 ####[facility] LABIA [id number] [place] [address] [place] Platelets (Bld) [#/Vol] 228 10*3/uL Normal 150-400 [facility] Comment on above: Order Comment: Speci men Type: BLOOD SPECIMENOrdering Facility: [facility] Address: [address] [place] [address] Performed By: #### 5 8410-2 ####[facility] LABIA [id number] [place] [address] [place] RBC (Bld) [#/Vol] 2.89 10*6/uL Low 3.90-5.20 [facility] Comment on above: Order Comment: Speci men Type: BLOOD SPECIMENOrdering Facility: [facility] Address: [address] [place] [address] Performed By: #### 5 8410-2 ####[facility] LABIA [id number] [place] [address] [place] WBC (Bld) [#/Vol] 6.35 10*3/uL Normal 3.70-11.00 [facility] Comment on above: Order Comment: Speci men Type: BLOOD SPECIMENOrdering Facility: [facility] Address: [address] [place] [address] Performed By: #### 5 8410-2 ####[facility] LABCLIA [id number] [place] [id number] [place] CNPNon 02-22-2025 CNPN Normal [facility] CONSULT PROGon 02-22-2025 CONSULT PROG Normal [facility] CRP SerPl-mCncon 02-22-2025 CRP [Mass/Vol] 10.3 mg/dL High <0.9 [facility] Comment on above: Order Comment: Speci men Type: BLOOD SPECIMENOrdering Facility: [facility] Address: [facility] [place] [address] Performed By: #### 1 988-5, , 83726-4 ####[facility] LABCLIA [id number] [place] [address] [place] Magnesium SerPl-mCncon 02-22 Magnesium [Mass/Vol] 2.1 mg/dL Normal 1.7-2.3 [facility] Comment on above: Order Comment: Speci men Type: BLOOD SPECIMENOrdering Facility: [facility] Address: [address] [place] [address] Performed By: #### 1 988-5, , 69965-3 ####[facility] LABIA [id number] [place] [id number] [place] NURSING PROGon 02-22-2025 NURSING PROG Normal [facility] NUTRITIONon 02-22-2025 NUTRITION Normal [facility] PT EDon 02-22-2025 PT ED Normal [facility] Renal function 2000 panelon 02-22-2025 Albumin [Mass/Vol] 3.3 g/dL Low 3.9-4.9 [facility] Comment on above: Order Comment: Speci men Type: BLOOD SPECIMENOrdering Facility: [facility] Address: [address] [place] [id number] Performed By: #### 1 988-5, , ####[facility] LABCLIA [id number] [address] [address] [place] Anion gap [Moles/Vol] 12 mmol/L Normal 8-15 [facility] Comment on above: Order Comment: Speci men Type: BLOOD SPECIMENOrdering Facility: [facility] Address: [address] [place], [place] [address] Performed By: #### 1 988-5, , ####[facility] LABCLIA [id number] [address] [address] [place] Calcium [Mass/Vol] 8.9 mg/dL Normal 8.5-10.2 [facility] Comment on above: Order Comment: Speci men Type: BLOOD SPECIMENOrdering Facility: [facility] Address: [address] [place] [address] Performed By: #### 1 988-5, , ####[facility] LABCLIA [id number] [address] [address] [place] Chloride [Moles/Vol] 103 mmol/L Normal 98-107 [facility] Comment on above: Order Comment: Speci men Type: BLOOD SPECIMENOrdering Facility: [facility] Address: [address] [place] [address] Performed By: #### 1 988-5, , ####[facility] LABCLIA [id number] [address] [address] [place] CO2 [Moles/Vol] 25 mmol/L Normal 22-30 [facility] Comment on above: Order Comment: Speci men Type: BLOOD SPECIMENOrdering Facility: [facility] Address: [address] [place] [address] Performed By: #### 1 988-5, , ####[facility] LABCLIA [id number] [address] [address] [place] Creatinine [Mass/Vol] 0.39 mg/dL Low 0.58-0.96 [facility] Comment on above: Order Comment: Elfego pollock Type: BLOOD SPECIMENOrdering Facility: [facility] Address: [address] [place], [place] [address] Performed By: #### 1 988-5, , 59427-1 ####[facility] [id number] [address] [address] [place] eGFRcr SerPlBld CKD-EPI 2020 132 mL/min/1.73m??? Normal >=60 [facility] Comment on above: Order Comment: Elfego pollock Type: BLOOD SPECIMENOrdering Facility: [facility] Address: [address] [place] [address] Result Comment: Desiree mated Glomerular Filtration Rate (eGFR) is calculated using the 2020 CKD-EPI creatinine equation. This equation utilizes serum creatinine, sex, and age as parameters. The creatinine assay has traceable calibration to isotope dilution-mass spectrometry. Refer to KDIGO guidelines for clinical interpretation. In patients with unstable renal function, e.g. those with acute kidney injury, the eGFR may not accurately reflect actual GFR. Performed By: #### 1 988-5, , 07200-6 ####[facility] LABIA [id number] [address] [address] [place] Glucose [Mass/Vol] 105 mg/dL High 74-99 [facility] Comment on above: Order Comment: Elfego pollock Type: BLOOD SPECIMENOrdering Facility: [facility] Address: [address] [place] [address] Result Comment: The [place] Diabetes Association (ADA) provides guidance for cutoff values for fasting glucose and random glucose. The ADA defines fasting as no caloric intake for at least 8 hours. Fasting plasma glucose results between 100 to 125 mg/dL indicate increased risk for diabetes (prediabetes).Fasting plasma glucose results greater than or equal to 126 mg/dL meet the criteria for diagnosis of diabetes. In the absence of unequivocal hyperglycemia, results should be confirmed by repeat testing. In a patient with classic symptoms of hyperglycemia or hyperglycemic crisis, random plasma glucose results greater than or equal to 200 mg/dL meet the criteria for diagnosis of diabetes.Reference: Standards of Medical Care in Diabetes 2016, [place] [employer]. Diabetes Care. 2016.39(Suppl 1). Performed By: #### 1 988-5, , ####[facility] LABCLIA [id number] [place] [address] [place] Phosphate [Mass/Vol] 4.9 mg/dL High 2.7-4.8 [facility] Comment on above: Order Comment: Speci men Type: BLOOD SPECIMENOrdering Facility: [facility] Address: [address] [place] [address] Performed By: #### 1 988-5, , ####[facility] LABIA [id number] [place] [address] [place] Potassium [Moles/Vol] 4.3 mmol/L Normal 3.7-5.1 [facility] Comment on above: Order Comment: Speci men Type: BLOOD SPECIMENOrdering Facility: [facility] Address: [address] [place] [address] Performed By: #### 1 988-5, , ####[facility] LABIA [id number] [place] [address] [place] Sodium [Moles/Vol] 140 mmol/L Normal 136-144 [facility] Comment on above: Order Comment: Speci men Type: BLOOD SPECIMENOrdering Facility: [facility] Address: [address] [place] [address] Performed By: #### 1 988-5, , ####[facility] LABCLIA [id number] [address] [address] [place] Urea nitrogen [Mass/Vol] 13 mg/dL Normal - [facility] Comment on above: Order Comment: Speci men Type: BLOOD SPECIMENOrdering Facility: [facility] Address: [address] [place] [address] Performed By: #### 1 988-5, 54157-7, 43067-7 ####[facility] LABCLIA [id number] [place] [address] [place] THERAPY NTon 02-22-2025 THERAPY NT Normal [facility] CASE MANAGEMon 02-21-2025 CASE MANAGEM Normal [facility] CBC panel Auto (Bld)on 02-21 Erythrocyte distribution width (RBC) [Ratio] 13.2 % Normal 11.5-15.0 [facility] Comment on above: Order Comment: Speci men Type: BLOOD SPECIMENOrdering Facility: [facility] Address: [address] [place] [address] Performed By: #### 5 8410-2 ####[facility] LABCLIA [id number] [place] [address] [place] Hematocrit (Bld) [Volume fraction] 25.1 % Low 36.0-46.0 [facility] Comment on above: Order Comment: Speci men Type: BLOOD SPECIMENOrdering Facility: [facility] Address: [address] [place] [address] Performed By: #### 5 8410-2 ####[facility] LABCLIA [id number] [place] [id number] [place] Hemoglobin (Bld) [Mass/Vol] 8.1 g/dL Low 11.5-15.5 [facility] Comment on above: Order Comment: Speci men Type: BLOOD SPECIMENOrdering Facility: [facility] Address: [address] [place] [address] Performed By: #### 5 8410-2 ####[facility] LABCLIA [id number] [place] [address] [place] MCH (RBC) [Entitic mass] 31.0 pg Normal 26.0-34.0 [facility] Comment on above: Order Comment: Speci men Type: BLOOD SPECIMENOrdering Facility: [facility] Address: [address] [place] [address] Performed By: #### 5 8410-2 ####[facility] LABIA [id number] [place] [address] [place] MCHC (RBC) [Mass/Vol] 32.3 g/dL Normal 30.5-36.0 [facility] Comment on above: Order Comment: Speci men Type: BLOOD SPECIMENOrdering Facility: [facility] Address: [address] [place] [address] Performed By: #### 5 8410-2 ####[facility] LABIA [id number] [place] [address] [place] MCV (RBC) [Entitic vol] 96.2 fL Normal 80.0-100.0 [facility] Comment on above: Order Comment: Speci men Type: BLOOD SPECIMENOrdering Facility: [facility] Address: [address] [place] [address] Performed By: #### 5 8410-2 ####[facility] LABIA [id number] [place] [address] [place] Nucleated RBC (Bld) [#/Vol] 10*3/uL Normal <0.01 [facility] Comment on above: Order Comment: Speci men Type: BLOOD SPECIMENOrdering Facility: [facility] Address: [address] [place] [address] Performed By: #### 5 8410-2 ####[facility] LABIA [id number] [place] [address] [place] Platelet mean volume (Bld) [Entitic vol] 12.1 fL Normal 9.0-12.7 [facility] Comment on above: Order Comment: Speci men Type: BLOOD SPECIMENOrdering Facility: [facility] Address: [address] [place] [address] Performed By: #### 5 8410-2 ####[facility] LABCLIA [id number] [place] [address] [place] Platelets (Bld) [#/Vol] 197 10*3/uL Normal 150-400 [facility] Comment on above: Order Comment: Speci men Type: BLOOD SPECIMENOrdering Facility: [facility] Address: [address] [place] [address] Performed By: #### 5 8410-2 ####[facility] LABCLIA [id number] [place] [address] [place] RBC (Bld) [#/Vol] 2.61 10*6/uL Low 3.90-5.20 [facility] Comment on above: Order Comment: Speci men Type: BLOOD SPECIMENOrdering Facility: [facility] Address: [address] [place] [address] Performed By: #### 5 8410-2 ####[facility] LABCLIA [id number] [place] [address] [place] WBC (Bld) [#/Vol] 6.61 10*3/uL Normal 3.70-11.00 [facility] Comment on above: Order Comment: Speci men Type: BLOOD SPECIMENOrdering Facility: [facility] Address: [address] [place] [address] Performed By: #### 5 8410-2 ####[facility] LABIA [id number] [place] [id number] [place] CRP SerPl-mCncon 02-21-2025 CRP [Mass/Vol] 9.4 mg/dL High <0.9 [facility] Comment on above: Order Comment: Speci men Type: BLOOD SPECIMENOrdering Facility: [facility] Address: [address] [place] [address] Performed By: #### 1 988-5, 24831-6, 35257-8 ####[facility] LABCLIA [id number] [address] [address] [place] Comprehensive metabolic 2000 panelon 02-21-2025 Albumin [Mass/Vol] 3.0 g/dL Low 3.9-4.9 [facility] Comment on above: Order Comment: Speci men Type: BLOOD SPECIMENOrdering Facility: [facility] Address: [address] [place] [address] Performed By: #### 2 4323-8, 277- ####[facility] LABCLIA [id number] [place] [address] [place] ALP [Catalytic activity/Vol] 137 U/L High 34-123 [facility] Comment on above: Order Comment: Speci men Type: BLOOD SPECIMENOrdering Facility: [facility] Address: [address] [place] [address] Performed By: #### 2 4323-8, 2776- ####[facility] LABCLIA [id number] [place] [address] [place] ALT [Catalytic activity/Vol] 15 U/L Normal 7-38 [facility] Comment on above: Order Comment: Speci men Type: BLOOD SPECIMENOrdering Facility: [facility] Address: [address] [place] [address] Performed By: #### 2 4323-8, 2776- ####[facility] LABCLIA [id number] [address] [address] [place] Anion gap [Moles/Vol] 11 mmol/L Normal 8-15 [facility] Comment on above: Order Comment: Speci men Type: BLOOD SPECIMENOrdering Facility: [facility] Address: [address] [place], [place] [address] Performed By: #### 2 4323-8, 277- ####[facility] LABCLIA [id number] [place] [id number] [place] AST [Catalytic activity/Vol] 14 U/L Normal 13-35 [facility] Comment on above: Order Comment: Speci men Type: BLOOD SPECIMENOrdering Facility: [facility] Address: [address] [place] [address] Performed By: #### 2 4323-8, 2777-1 ####[facility] LABCLIA [id number] [place] [address] [place] Bilirubin [Mass/Vol] 0.5 mg/dL Normal 0.2-1.3 [facility] Comment on above: Order Comment: Speci men Type: BLOOD SPECIMENOrdering Facility: [facility] Address: [address] [place] [address] Performed By: #### 2 4323-8, 2777-1 ####[facility] LABCLIA [id number] [place] [address] [place] Calcium [Mass/Vol] 8.3 mg/dL Low 8.5-10.2 [facility] Comment on above: Order Comment: Speci men Type: BLOOD SPECIMENOrdering Facility: [facility] Address: [address] [place] [address] Performed By: #### 2 4323-8, 277- ####[facility] LABCLIA [id number] [place] [address] [place] Chloride [Moles/Vol] 103 mmol/L Normal 98-107 [facility] Comment on above: Order Comment: Speci men Type: BLOOD SPECIMENOrdering Facility: [facility] Address: [address] [place] [address] Performed By: #### 2 4323-8, 2777- ####[facility] LABCLIA [id number] [place] [address] [place] CO2 [Moles/Vol] 23 mmol/L Normal 22-30 [facility] Comment on above: Order Comment: Speci men Type: BLOOD SPECIMENOrdering Facility: [facility] Address: [address] [place] [address] Performed By: #### 2 4323-8, 2776-07 ####[facility] LABIA [id number] [address] [address] [place] Creatinine [Mass/Vol] 0.35 mg/dL Low 0.58-0.96 [facility] Comment on above: Order Comment: Speci men Type: BLOOD SPECIMENOrdering Facility: [facility] Address: [address] [place] [address] Performed By: #### 2 4323-8, 2776-07 ####[facility] LABIA [id number] [place] [address] [place] eGFRcr SerPlBld CKD-EPI 2020 135 mL/min/1.73m??? Normal >=60 [facility] Comment on above: Order Comment: Speci men Type: BLOOD SPECIMENOrdering Facility: [facility] Address: [address] [place] [address] Result Comment: Desiree mated Glomerular Filtration Rate (eGFR) is calculated using the 2020 CKD-EPI creatinine equation. This equation utilizes serum creatinine, sex, and age as parameters. The creatinine assay has traceable calibration to isotope dilution-mass spectrometry. Refer to KDIGO guidelines for clinical interpretation. In patients with unstable renal function, e.g. those with acute kidney injury, the eGFR may not accurately reflect actual GFR. Performed By: #### 2 4323-8, 2776-07 ####[facility] LABIA [id number] [address] [address] [place] Glucose [Mass/Vol] 118 mg/dL High 74-99 [facility] Comment on above: Order Comment: Speci men Type: BLOOD SPECIMENOrdering Facility: [facility] Address: [address] [place] [address] Result Comment: The [place] Diabetes [employer] (ADA) provides guidance for cutoff values for fasting glucose and random glucose. The ADA defines fasting as no caloric intake for at least 8 hours. Fasting plasma glucose results between 100 to 125 mg/dL indicate increased risk for diabetes (prediabetes).Fasting plasma glucose results greater than or equal to 126 mg/dL meet the criteria for diagnosis of diabetes. In the absence of unequivocal hyperglycemia, results should be confirmed by repeat testing. In a patient with classic symptoms of hyperglycemia or hyperglycemic crisis, random plasma glucose results greater than or equal to 200 mg/dL meet the criteria for diagnosis of diabetes.Reference: Standards of Medical Care in Diabetes 2016, [place] [employer] Association. Diabetes Care. 2016.39(Suppl 1). Performed By: #### 2 4323-8, 2776-07 ####[facility] LABIA [id number] [place] [address] [place] Potassium [Moles/Vol] 4.1 mmol/L Normal 3.7-5.1 [facility] Comment on above: Order Comment: Speci men Type: BLOOD SPECIMENOrdering Facility: [facility] Address: [address] [place] [address] Performed By: #### 2 4323-8, 2776-07 ####[facility] LABIA [id number] [place] [address] [place] Protein [Mass/Vol] 5.8 g/dL Low 6.3-8.0 [facility] Comment on above: Order Comment: Speci men Type: BLOOD SPECIMENOrdering Facility: [facility] Address: [address] [place] [address] Performed By: #### 2 4323-8, 2776-07 ####[facility] LABIA [id number] [place] [address] [place] Sodium [Moles/Vol] 137 mmol/L Normal 136-144 [facility] Comment on above: Order Comment: Speci men Type: BLOOD SPECIMENOrdering Facility: [facility] Address: [address] [place] [address] Performed By: #### 2 43238, 2777-1 ####[facility] LABCLIA [id number] [address] [address] [place] Urea nitrogen [Mass/Vol] 15 mg/dL Normal 7-21 [facility] Comment on above: Order Comment: Speci men Type: BLOOD SPECIMENOrdering Facility: [facility] Address: [address] [place], [place] [address] Performed By: #### 2 4323-8, 2777-1 ####[facility] LABCLIA [id number] [address] [address] [place] Magnesium SerPl-[facility] 02-21 Magnesium [Mass/Vol] 2.6 mg/dL High 1.7-2.3 [facility] Comment on above: Order Comment: Speci men Type: BLOOD SPECIMENOrdering Facility: [facility] Address: [address] [place] [address] Performed By: #### 1 988-5, 96171-0, 02260-4 ####[facility] LABIA [id number] [address] [address] [place] NURSING PROGon 02-21-2025 NURSING PROG Normal [facility] NUTRITIONon 02-21-2025 NUTRITION Normal [facility] Phosphate SerPl-mCncon 02-21 Phosphate [Mass/Vol] 4.1 mg/dL Normal 2.7-4.8 [facility] Comment on above: Order Comment: Speci men Type: BLOOD SPECIMENOrdering Facility: [facility] Address: [address] [place], [place] [address] Result Comment: Resu lt rechecked. Performed By: #### 2 4323-8, 2777-1 ####[facility] LABCLIA [id number] [address] [address] [place] Renal function 2000 panelon 02-21-2025 Albumin [Mass/Vol] 2.7 g/dL Low 3.9-4.9 [facility] Comment on above: Order Comment: Speci men Type: BLOOD SPECIMENOrdering Facility: [facility] Address: [address] [place], [place] [address] Performed By: #### 1 988-5, , ####[facility] LABCLIA [id number] [address] [address] [place] Anion gap [Moles/Vol] 18 mmol/L High 8-15 [facility] Comment on above: Order Comment: Speci men Type: BLOOD SPECIMENOrdering Facility: [facility] Address: [address] [place], [place] [address] Performed By: #### 1 988-5, , ####[facility] LABCLIA [id number] [address] [address] [place] Calcium [Mass/Vol] 8.0 mg/dL Low 8.5-10.2 [facility] Comment on above: Order Comment: Speci men Type: BLOOD SPECIMENOrdering Facility: [facility] Address: [address] [place], [place] [address] Performed By: #### 1 988-5, , ####[facility] LABCLIA [id number] [address] [address] [place] Chloride [Moles/Vol] 98 mmol/L Normal 98-107 [facility] Comment on above: Order Comment: Speci men Type: BLOOD SPECIMENOrdering Facility: [facility] Address: [address] [place], [place] [address] Performed By: #### 1 988-5, , ####[facility] LABCLIA [id number] [address] [address] [place] CO2 [Moles/Vol] 18 mmol/L Low 22-30 [facility] Comment on above: Order Comment: Speci men Type: BLOOD SPECIMENOrdering Facility: [facility] Address: [address] [place] [address] Performed By: #### 1 988-5, , 81444-5 ####[facility] LABIA [id number] [address] [address] [place] Creatinine [Mass/Vol] 0.42 mg/dL Low 0.58-0.96 [facility] Comment on above: Order Comment: Speci men Type: BLOOD SPECIMENOrdering Facility: [facility] Address: [address] [place] [address] Performed By: #### 1 988-5, , ####[facility] [id number] [place] [address] [place] eGFRcr SerPlBld CKD-EPI 2020 129 mL/min/1.73m??? Normal >=60 [facility] Comment on above: Order Comment: Speci men Type: BLOOD SPECIMENOrdering Facility: [facility] Address: [address] [place] [address] Result Comment: Desiree mated Glomerular Filtration Rate (eGFR) is calculated using the 2020 CKD-EPI creatinine equation. This equation utilizes serum creatinine, sex, and age as parameters. The creatinine assay has traceable calibration to isotope dilution-mass spectrometry. Refer to KDIGO guidelines for clinical interpretation. In patients with unstable renal function, e.g. those with acute kidney injury, the eGFR may not accurately reflect actual GFR. Performed By: #### 1 988-5, , 03445-1 ####[facility] LABIA [id number] [address] [address] [place] Glucose [Mass/Vol] 559 mg/dL High 74-99 [facility] Comment on above: Order Comment: Speci men Type: BLOOD SPECIMENOrdering Facility: [facility] Address: [address] [place] [address] Result Comment: The [place] Diabetes Association (ADA) provides guidance for cutoff values for fasting glucose and random glucose. The ADA defines fasting as no caloric intake for at least 8 hours. Fasting plasma glucose results between 100 to 125 mg/dL indicate increased risk for diabetes (prediabetes).Fasting plasma glucose results greater than or equal to 126 mg/dL meet the criteria for diagnosis of diabetes. In the absence of unequivocal hyperglycemia, results should be confirmed by repeat testing. In a patient with classic symptoms of hyperglycemia or hyperglycemic crisis, random plasma glucose results greater than or equal to 200 mg/dL meet the criteria for diagnosis of diabetes.Reference: Standards of Medical Care in Diabetes 2016, [place] [employer]. Diabetes Care. 2016.39(Suppl 1). Performed By: #### 1 988-5, , 62726-3 ####[facility] LABIA [id number] [place] [address] [place] Phosphate [Mass/Vol] 6.7 mg/dL High 2.7-4.8 [facility] Comment on above: Order Comment: Speci men Type: BLOOD SPECIMENOrdering Facility: [facility] Address: [address] [place] [address] Performed By: #### 1 988-5, , 39850-1 ####[facility] LABIA [id number] [place] [address] [place] Potassium [Moles/Vol] 5.4 mmol/L High 3.7-5.1 [facility] Comment on above: Order Comment: Speci men Type: BLOOD SPECIMENOrdering Facility: [facility] Address: [address] [place], [place] [address] Performed By: #### 1 988-5, , 82189-1 ####[facility] [id number] [place] [address] [place] Sodium [Moles/Vol] 134 mmol/L Low 136-144 [facility] Comment on above: Order Comment: Speci men Type: BLOOD SPECIMENOrdering Facility: [facility] Address: [address] [place], [place] [address] Performed By: #### 1 988-5, , 33219-7 ####[facility] LABCLIA [id number] [address] [place] [address] [place] Urea nitrogen [Mass/Vol] 12 mg/dL Normal 7-21 [facility] Comment on above: Order Comment: Speci men Type: BLOOD SPECIMENOrdering Facility: [facility] Address: [address] [place] [address] Performed By: #### 1 988-5, , 44238-3 ####[facility] LABIA [id number] [address] [place] [address] [place] THERAPY NTon 02-21-2025 THERAPY NT Normal [facility] 25(OH)D3 SerPl-mCncon 2024 25-hydroxyvitamin D3 [Mass/Vol] 31.2 ng/mL Normal 31.0-80.0 [facility] Comment on above: Order Comment: Speci men Type: BLOOD SPECIMENOrdering Facility: [facility] Address: [address] [place] [address] Result Comment: Clas sification of 25 [place] Vitamin D status:Deficiency/Insufficiency: < or = 30 ng/ml.Sufficiency/Optimal Levels: 31-80 ng/mLToxicity: > 100 ng/mL.Test performed by chemiluminescent immunoassay. Performed By: #### 1 989-3 ####[facility] LABIA [id number] [address] [place] [address] [place] CBC panel Auto (Bld)on 02-20 Erythrocyte distribution width (RBC) [Ratio] 13.1 % Normal 11.5-15.0 [facility] Comment on above: Order Comment: Speci men Type: BLOOD SPECIMENOrdering Facility: [facility] Address: [address] [place] [address] Performed By: #### 5 8410-2 ####[facility] LABIA [id number] [address] [place] [address] [place] Hematocrit (Bld) [Volume fraction] 26.2 % Low 36.0-46.0 [facility] Comment on above: Order Comment: Speci men Type: BLOOD SPECIMENOrdering Facility: [facility] Address: [address] [place] [address] Performed By: #### 5 8410-2 ####[facility] LABIA [id number] [place] [address] [place] Hemoglobin (Bld) [Mass/Vol] 8.7 g/dL Low 11.5-15.5 [facility] Comment on above: Order Comment: Speci men Type: BLOOD SPECIMENOrdering Facility: [facility] Address: [address] [place] [address] Performed By: #### 5 8410-2 ####[facility] LABIA [id number] [place] [address] [place] MCH (RBC) [Entitic mass] 30.1 pg Normal 26.0-34.0 [facility] Comment on above: Order Comment: Speci men Type: BLOOD SPECIMENOrdering Facility: [facility] Address: [address] [place] [address] Performed By: #### 5 8410-2 ####[facility] LABIA [id number] [place] [address] [place] MCHC (RBC) [Mass/Vol] 33.2 g/dL Normal 30.5-36.0 [facility] Comment on above: Order Comment: Speci men Type: BLOOD SPECIMENOrdering Facility: [facility] Address: [address] [place] [address] Performed By: #### 5 8410-2 ####[facility] LABIA [id number] [place] [address] [place] MCV (RBC) [Entitic vol] 90.7 fL Normal 80.0-100.0 [facility] Comment on above: Order Comment: Speci men Type: BLOOD SPECIMENOrdering Facility: [facility] Address: [address] [place] [address] Performed By: #### 5 8410-2 ####[facility] LABCLIA [id number] [place] [address] [place] Nucleated RBC (Bld) [#/Vol] 10*3/uL Normal <0.01 [facility] Comment on above: Order Comment: Speci men Type: BLOOD SPECIMENOrdering Facility: [facility] Address: [address] [place] [address] Performed By: #### 5 8410-2 ####[facility] LABIA [id number] [place] [address] [place] Platelet mean volume (Bld) [Entitic vol] 10.8 fL Normal 9.0-12.7 [facility] Comment on above: Order Comment: Speci men Type: BLOOD SPECIMENOrdering Facility: [facility] Address: [address] [place] [address] Performed By: #### 5 8410-2 ####[facility] LABCLIA [id number] [place] [address] [place] Platelets (Bld) [#/Vol] 194 10*3/uL Normal 150-400 [facility] Comment on above: Order Comment: Speci men Type: BLOOD SPECIMENOrdering Facility: [facility] Address: [address] [place] [address] Performed By: #### 5 8410-2 ####[facility] LABCLIA [id number] [place] [address] [place] RBC (Bld) [#/Vol] 2.89 10*6/uL Low 3.90-5.20 [facility] Comment on above: Order Comment: Speci men Type: BLOOD SPECIMENOrdering Facility: [facility] Address: [address] [place] [address] Performed By: #### 5 8410-2 ####[facility] LABCLIA [id number] [address] [address] [place] WBC (Bld) [#/Vol] 6.01 10*3/uL Normal 3.70-11.00 [facility] Comment on above: Order Comment: Speci men Type: BLOOD SPECIMENOrdering Facility: [facility] Address: [address] [place] [address] Performed By: #### 5 8410-2 ####[facility] LABIA [id number] [address] [address] [place] CONSULT PROGon 02-20-2025 CONSULT PROG Normal [facility] CRP SerPl-mCncon 02-20-2025 CRP [Mass/Vol] 11.4 mg/dL High <0.9 [facility] Comment on above: Order Comment: Speci men Type: BLOOD SPECIMENOrdering Facility: [facility] Address: [address] [place] [address] Performed By: #### 1 9123-9, 2571-8, 75910-4, 1987-11 ####[facility] [id number] [place] [id number] [place] Magnesium SerPl-mCncon 02-20 Magnesium [Mass/Vol] 2.0 mg/dL Normal 1.7-2.3 [facility] Comment on above: Order Comment: Speci men Type: BLOOD SPECIMENOrdering Facility: [facility] Address: [address] [place] [address] Performed By: #### 1 9123-9, 2571-8, 44817-5, 1987-11 ####[facility] [id number] [address] [address] [place] NUTRITIONon 02-20-2025 NUTRITION Normal [facility] Renal function 2000 panelon 02-20-2025 Albumin [Mass/Vol] 3.1 g/dL Low 3.9-4.9 [facility] Comment on above: Order Comment: Speci men Type: BLOOD SPECIMENOrdering Facility: [facility] Address: [address] [place] [address] Performed By: #### 1 9123-9, 257-8, , 1987-11 ####[facility] LABCLIA [id number] [address] [address] [place] Anion gap [Moles/Vol] 10 mmol/L Normal 8-15 [facility] Comment on above: Order Comment: Speci men Type: BLOOD SPECIMENOrdering Facility: [facility] Address: [address] [place] [address] Performed By: #### 1 9123-9, 257-8, , 1987-11 ####[facility] LABCLIA [id number] [address] [address] [place] Calcium [Mass/Vol] 8.4 mg/dL Low 8.5-10.2 [facility] Comment on above: Order Comment: Speci men Type: BLOOD SPECIMENOrdering Facility: [facility] Address: [address] [place] [address] Performed By: #### 1 9123-9, 2578, , 1987-11 ####[facility] LABCLIA [id number] [address] [address] [place] Chloride [Moles/Vol] 102 mmol/L Normal 98-107 [facility] Comment on above: Order Comment: Speci men Type: BLOOD SPECIMENOrdering Facility: [facility] Address: [address] [place] [address] Performed By: #### 1 9123-9, 257-8, , 1987-11 ####[facility] LABCLIA [id number] [address] [address] [place] CO2 [Moles/Vol] 25 mmol/L Normal 22-30 [facility] Comment on above: Order Comment: Speci men Type: BLOOD SPECIMENOrdering Facility: [facility] Address: [address] [place] [address] Performed By: #### 1 9123-9, 8, , 1987-11 ####[facility] LABCLIA [id number] [address] [address] [place] Creatinine [Mass/Vol] 0.37 mg/dL Low 0.58-0.96 [facility] Comment on above: Order Comment: Speci men Type: BLOOD SPECIMENOrdering Facility: [facility] Address: [address] [place], [place] [address] Performed By: #### 1 9123-9, 8, , 1987-11 ####[facility] LABIA [id number] [address] [address] [place] eGFRcr SerPlBld CKD-EPI 2020 133 mL/min/1.73m??? Normal >=60 [facility] Comment on above: Order Comment: Speci men Type: BLOOD SPECIMENOrdering Facility: [facility] Address: [address] [place] [address] Result Comment: Desiree mated Glomerular Filtration Rate (eGFR) is calculated using the 2020 CKD-EPI creatinine equation. This equation utilizes serum creatinine, sex, and age as parameters. The creatinine assay has traceable calibration to isotope dilution-mass spectrometry. Refer to KDIGO guidelines for clinical interpretation. In patients with unstable renal function, e.g. those with acute kidney injury, the eGFR may not accurately reflect actual GFR. Performed By: #### 1 9123-9, 2578, , 1987-11 ####[facility] LABIA [id number] [address] [address] [address] [place] Glucose [Mass/Vol] 117 mg/dL High 74-99 [facility] Comment on above: Order Comment: Speci men Type: BLOOD SPECIMENOrdering Facility: [facility] Address: [address] [place] [address] Result Comment: The [place] Diabetes Association (ADA) provides guidance for cutoff values for fasting glucose and random glucose. The ADA defines fasting as no caloric intake for at least 8 hours. Fasting plasma glucose results between 100 to 125 mg/dL indicate increased risk for diabetes (prediabetes).Fasting plasma glucose results greater than or equal to 126 mg/dL meet the criteria for diagnosis of diabetes. In the absence of unequivocal hyperglycemia, results should be confirmed by repeat testing. In a patient with classic symptoms of hyperglycemia or hyperglycemic crisis, random plasma glucose results greater than or equal to 200 mg/dL meet the criteria for diagnosis of diabetes.Reference: Standards of Medical Care in Diabetes 2016, [employer] Diabetes Association. Diabetes Care. 2016.39(Suppl 1). Performed By: #### 1 9123-9, 257-8, , 1987-11 ####[facility] LABIA [id number] [place] [address] [place] Phosphate [Mass/Vol] 3.3 mg/dL Normal 2.7-4.8 [facility] Comment on above: Order Comment: Speci men Type: BLOOD SPECIMENOrdering Facility: [facility] Address: [address] [place] [address] Performed By: #### 1 9123-9, 8, , 1987-11 ####[facility] [id number] [place] [address] [place] Potassium [Moles/Vol] 3.3 mmol/L Low 3.7-5.1 [facility] Comment on above: Order Comment: Speci men Type: BLOOD SPECIMENOrdering Facility: [facility] Address: [address] [place] [address] Performed By: #### 1 9123-9, 2578, , 1987-11 ####[facility] LABIA [id number] [place] [address] [place] Sodium [Moles/Vol] 137 mmol/L Normal 136-144 [facility] Comment on above: Order Comment: Speci men Type: BLOOD SPECIMENOrdering Facility: [facility] Address: [address] [place], [place] [address] Performed By: #### 1 9123-9, 257-8, , 1987-11 ####[facility] LABCLIA [id number] [address] [address] [place] Urea nitrogen [Mass/Vol] 14 mg/dL Normal 7-21 [facility] Comment on above: Order Comment: Speci men Type: BLOOD SPECIMENOrdering Facility: [facility] Address: [address] [place] [address] Performed By: #### 1 9123-9, 2578, , 1987-11 ####[facility] LABCLIA [id number] [address] [address] [place] THERAPY NTon 02-20-2025 THERAPY NT Normal [facility] Trigl SerPl-mCncon Triglyceride [Mass/Vol] 128 mg/dL Normal <150 [facility] Comment on above: Order Comment: Speci men Type: BLOOD SPECIMENOrdering Facility: [facility] Address: [address] [place] [address] Result Comment: <150 mg/dL, Normal 150-199 mg/dL, Borderline high 200-499 mg/dL, High>499 mg/dL, Very highReference:1. National Cholesterol Education Program ATP III Guideline At-A-Glance Quick Desk Reference: National Heart, Lung, and Blood [place]. National Institutes of Health. 2001: NIH Publication No. 01-3305. Performed By: #### 1 9123-9, 257-8, , 1987-11 ####[facility] LABCLIA [id number] [address] [address] [place] Triglyceride [Mass/Vol]on FASTING TIME 0 hrs Normal [facility] Comment on above: Order Comment: Speci men Type: BLOOD SPECIMENOrdering Facility: [facility] Address: [address] [place] [address] Performed By: #### 1 9123-9, 2571-8, 08402-2, 1988- ####[facility] LABCLIA [id number] [address] [address] [place] Basic metabolic 2000 panelon 02-19-2025 Anion gap [Moles/Vol] 12 mmol/L Normal 8-15 [facility] Comment on above: Order Comment: Speci men Type: BLOOD SPECIMENOrdering Facility: [facility] Address: [address] [place], [place] [address] Performed By: #### 2 4325-3, 78427-4, 277-1, 76288-7 ####[facility] LABCLIA [id number] [place] [address] [place] Calcium [Mass/Vol] 8.1 mg/dL Low 8.5-10.2 [facility] Comment on above: Order Comment: Speci men Type: BLOOD SPECIMENOrdering Facility: [facility] Address: [address] [place] [address] Performed By: #### 2 4325-3, 71071-1, 277-1, 64367-2 ####[facility] LABCLIA [id number] [place] [address] [place] Chloride [Moles/Vol] 103 mmol/L Normal 98-107 [facility] Comment on above: Order Comment: Speci men Type: BLOOD SPECIMENOrdering Facility: [facility] Address: [address] [place], [place] [address] Performed By: #### 2 4325-3, 92613-0, 277-1, 08354-9 ####[facility] LABCLIA [id number] [place] [address] [place] CO2 [Moles/Vol] 23 mmol/L Normal 22-30 [facility] Comment on above: Order Comment: Speci men Type: BLOOD SPECIMENOrdering Facility: [facility] Address: [address] [place] [address] [place] [address] Performed By: #### 2 4325-3, 45894-1, 2777-1, 25523-2 ####[facility] LABIA [id number] [address] [address] [place] Creatinine [Mass/Vol] 0.37 mg/dL Low 0.58-0.96 [facility] Comment on above: Order Comment: Speci men Type: BLOOD SPECIMENOrdering Facility: [facility] Address: [address] [place] [address] Performed By: #### 2 4325-3, 59723-8, 277-1, 02182-5 ####[facility] [id number] [place] [address] [place] eGFRcr SerPlBld CKD-EPI 2020 133 mL/min/1.73m??? Normal >=60 [facility] Comment on above: Order Comment: Speci men Type: BLOOD SPECIMENOrdering Facility: [facility] Address: [address] [place] [address] Result Comment: Desiree mated Glomerular Filtration Rate (eGFR) is calculated using the 2020 CKD-EPI creatinine equation. This equation utilizes serum creatinine, sex, and age as parameters. The creatinine assay has traceable calibration to isotope dilution-mass spectrometry. Refer to KDIGO guidelines for clinical interpretation. In patients with unstable renal function, e.g. those with acute kidney injury, the eGFR may not accurately reflect actual GFR. Performed By: #### 2 4325-3, 69867-4, 2776-, 82005-9 ####[facility] LABIA [id number] [address] [address] [place] Glucose [Mass/Vol] 111 mg/dL High 74-99 [facility] Comment on above: Order Comment: Darryli men Type: BLOOD SPECIMENOrdering Facility: [facility] Address: [address] [place] [address] Result Comment: The [place] Diabetes Association (ADA) provides guidance for cutoff values for fasting glucose and random glucose. The ADA defines fasting as no caloric intake for at least 8 hours. Fasting plasma glucose results between 100 to 125 mg/dL indicate increased risk for diabetes (prediabetes).Fasting plasma glucose results greater than or equal to 126 mg/dL meet the criteria for diagnosis of diabetes. In the absence of unequivocal hyperglycemia, results should be confirmed by repeat testing. In a patient with classic symptoms of hyperglycemia or hyperglycemic crisis, random plasma glucose results greater than or equal to 200 mg/dL meet the criteria for diagnosis of diabetes.Reference: Standards of Medical Care in Diabetes 2016, [place] Diabetes Association. Diabetes Care. 2016.39(Suppl 1). Performed By: #### 2 4325-3, 92732-6, 2777-1, 69693-7 ####[facility] LABIA [id number] [place] [address] [place] Potassium [Moles/Vol] 4.0 mmol/L Normal 3.7-5.1 [facility] Comment on above: Order Comment: Speci men Type: BLOOD SPECIMENOrdering Facility: [facility] Address: [address] [place] [address] Performed By: #### 2 4325-3, 94500-6, 277-1, 63899-2 ####[facility] [id number] [place] [address] [place] Sodium [Moles/Vol] 138 mmol/L Normal 136-144 [facility] Comment on above: Order Comment: Speci men Type: BLOOD SPECIMENOrdering Facility: [facility] Address: [address] [place] [id number] Performed By: #### 2 4325-3, 14039-1, 277-1, 99997-3 ####[facility] LABIA [id number] [place] [address] [place] Urea nitrogen [Mass/Vol] 12 mg/dL Normal 7-21 [facility] Comment on above: Order Comment: Speci men Type: BLOOD SPECIMENOrdering Facility: [facility] Address: [address] [place] [address] Performed By: #### 2 4325-3, 55132-0, 2777-1, 32694-7 ####[facility] LABIA [id number] [place] [address] [place] CASE MANAGEMon 02-19-2025 CASE MANAGEM Normal [facility] CBC panel Auto (Bld)on 02-19 Erythrocyte distribution width (RBC) [Ratio] 13.0 % Normal 11.5-15.0 [facility] Comment on above: Order Comment: Speci men Type: BLOOD SPECIMENOrdering Facility: [facility] Address: [address] [place] [address] Performed By: #### 5 8410-2 ####[facility] LABIA [id number] [address] [place] Hematocrit (Bld) [Volume fraction] 27.1 % Low 36.0-46.0 [facility] Comment on above: Order Comment: Speci men Type: BLOOD SPECIMENOrdering Facility: [facility] Address: [address] [place] [address] Performed By: #### 5 8410-2 ####[facility] LABIA [id number] [place] [address] [place] Hemoglobin (Bld) [Mass/Vol] 8.8 g/dL Low 11.5-15.5 [facility] Comment on above: Order Comment: Speci men Type: BLOOD SPECIMENOrdering Facility: [facility] Address: [address] [place] [address] Performed By: #### 5 8410-2 ####[facility] [id number] [place] [address] [place] MCH (RBC) [Entitic mass] 30.2 pg Normal 26.0-34.0 [facility] Comment on above: Order Comment: Speci men Type: BLOOD SPECIMENOrdering Facility: [facility] Address: [address] [place] [address] Performed By: #### 5 8410-2 ####[facility] LABCLIA [id number] [place] [address] [place] MCHC (RBC) [Mass/Vol] 32.5 g/dL Normal 30.5-36.0 [facility] Comment on above: Order Comment: Speci men Type: BLOOD SPECIMENOrdering Facility: [facility] Address: [address] [place] [address] Performed By: #### 5 8410-2 ####[facility] LABIA [id number] [place] [address] [place] MCV (RBC) [Entitic vol] 93.1 fL Normal 80.0-100.0 [facility] Comment on above: Order Comment: Speci men Type: BLOOD SPECIMENOrdering Facility: [facility] Address: [address] [place] [address] Performed By: #### 5 8410-2 ####[facility] LABIA [id number] [place] [address] [place] Nucleated RBC (Bld) [#/Vol] 10*3/uL Normal <0.01 [facility] Comment on above: Order Comment: Speci men Type: BLOOD SPECIMENOrdering Facility: [facility] Address: [address] [place] [address] Performed By: #### 5 8410-2 ####[facility] LABIA [id number] [place] [address] [place] Platelet mean volume (Bld) [Entitic vol] 11.4 fL Normal 9.0-12.7 [facility] Comment on above: Order Comment: Speci men Type: BLOOD SPECIMENOrdering Facility: [facility] Address: [address] [place] [address] Performed By: #### 5 8410-2 ####[facility] LABIA [id number] [place] [id number] [place] Platelets (Bld) [#/Vol] 203 10*3/uL Normal 150-400 [facility] Comment on above: Order Comment: Speci men Type: BLOOD SPECIMENOrdering Facility: [facility] Address: [address] [place] [address] Performed By: #### 5 8410-2 ####[facility] LABIA [id number] [place] [address] [place] RBC (Bld) [#/Vol] 2.91 10*6/uL Low 3.90-5.20 [facility] Comment on above: Order Comment: Speci men Type: BLOOD SPECIMENOrdering Facility: [facility] Address: [address] [place] [address] Performed By: #### 5 8410-2 ####[facility] LABIA [id number] [place] [address] [place] WBC (Bld) [#/Vol] 8.49 10*3/uL Normal 3.70-11.00 [facility] Comment on above: Order Comment: Speci men Type: BLOOD SPECIMENOrdering Facility: [facility] Address: [address] [place] [address] Performed By: #### 5 8410-2 ####[facility] LABIA [id number] [place] [address] [place] CONSULTon 02-19-2025 CONSULT Normal [facility] CONSULT PROGon 02-19-2025 CONSULT PROG Normal [facility] Hepatic function 2000 panelo n 02-19-2025 Albumin [Mass/Vol] 3.1 g/dL Low 3.9-4.9 [facility] Comment on above: Order Comment: Speci men Type: BLOOD SPECIMENOrdering Facility: [facility] Address: [address] [place] [address] Performed By: #### 2 4325-3, 72711-5, 2777-1, 54976-0 ####[facility] LABCLIA [id number] [address] [address] [place] ALP [Catalytic activity/Vol] 152 U/L High 34-123 [facility] Comment on above: Order Comment: Speci men Type: BLOOD SPECIMENOrdering Facility: [facility] Address: [address] [place] [address] Performed By: #### 2 4325-3, 69157-5, 2776-07, 27572-5 ####[facility] LABCLIA [id number] [address] [address] [place] ALT [Catalytic activity/Vol] 23 U/L Normal 7-38 [facility] Comment on above: Order Comment: Speci men Type: BLOOD SPECIMENOrdering Facility: [facility] Address: [address] [place] [address] Performed By: #### 2 4325-3, , 2776-07, 19743-3 ####[facility] LABCLIA [id number] [address] [address] [place] AST [Catalytic activity/Vol] 28 U/L Normal 13-35 [facility] Comment on above: Order Comment: Speci men Type: BLOOD SPECIMENOrdering Facility: [facility] Address: [address] [place] [address] Performed By: #### 2 4325-3, , 2776-07, 47300-7 ####[facility] LABCLIA [id number] [address] [address] [place] Bilirubin [Mass/Vol] 0.8 mg/dL Normal 0.2-1.3 [facility] Comment on above: Order Comment: Speci men Type: BLOOD SPECIMENOrdering Facility: [facility] Address: [address] [place] [address] Performed By: #### 2 4325-3, 03018-4, 2776-07, 33127-0 ####[facility] LABCLIA [id number] [address] [address] [place] Bilirubin.conjugated [Mass/Vol] 0.3 mg/dL High <0.3 [facility] Comment on above: Order Comment: Speci men Type: BLOOD SPECIMENOrdering Facility: [facility] Address: [address] [place] [address] Performed By: #### 2 4325-3, 82590-5, 2776-, 55368-2 ####[facility] LABIA [id number] [place] [address] [place] Protein [Mass/Vol] 5.9 g/dL Low 6.3-8.0 [facility] Comment on above: Order Comment: Speci men Type: BLOOD SPECIMENOrdering Facility: [facility] Address: [address] [place] [address] Performed By: #### 2 4325-3, 19152-3, 2776-07, 28962-5 ####[facility] LABIA [id number] [place] [address] [place] Magnesium SerPl-ncon 02-19 Magnesium [Mass/Vol] 2.0 mg/dL Normal 1.7-2.3 [facility] Comment on above: Order Comment: Speci men Type: BLOOD SPECIMENOrdering Facility: [facility] Address: [address] [place] [address] Performed By: #### 2 4325-3, 73072-7, 27701-02, 80443-2 ####[facility] LABIA [id number] [place] [address] [place] NUTRITIONon 02-19-2025 NUTRITION Normal [facility] Phosphate SerPl-mCncon 02-19 Phosphate [Mass/Vol] 3.0 mg/dL Normal 2.7-4.8 [facility] Comment on above: Order Comment: Speci men Type: BLOOD SPECIMENOrdering Facility: [facility] Address: [address] [place] [address] Performed By: #### 2 4325-3, 12655-2, 2777-1, 30970-5 ####[facility] LABCLIA [id number] [address] [place] [address] [place] [facility] [place] THERAPY NTon 02-19-2025 THERAPY NT Normal [facility] THERAPY NT Normal [facility] CBC panel Auto (Bld)on 02-18 Erythrocyte distribution width (RBC) [Ratio] 13.3 % Normal 11.5-15.0 [facility] Comment on above: Order Comment: Speci men Type: BLOOD SPECIMENOrdering Facility: [facility] Address: [address] [place] [address] Performed By: #### 5 8410-2 ####[facility] LABCLIA [id number] [address] [place] Hematocrit (Bld) [Volume fraction] 26.4 % Low 36.0-46.0 [facility] Comment on above: Order Comment: Speci men Type: BLOOD SPECIMENOrdering Facility: [facility] Address: [address] [place] [address] Performed By: #### 5 8410-2 ####[facility] LABCLIA [id number] [address] [place] [address] [place] Hemoglobin (Bld) [Mass/Vol] 8.9 g/dL Low 11.5-15.5 [facility] Comment on above: Order Comment: Speci men Type: BLOOD SPECIMENOrdering Facility: [facility] Address: [address] [place] [address] Performed By: #### 5 8410-2 ####[facility] LABCLIA [id number] [address] [address] [place] MCH (RBC) [Entitic mass] 31.0 pg Normal 26.0-34.0 [facility] Comment on above: Order Comment: Speci men Type: BLOOD SPECIMENOrdering Facility: [facility] Address: [address] [place] [address] Performed By: #### 5 8410-2 ####[facility] [id number] [place] [address] [place] MCHC (RBC) [Mass/Vol] 33.7 g/dL Normal 30.5-36.0 [facility] Comment on above: Order Comment: Speci men Type: BLOOD SPECIMENOrdering Facility: [facility] Address: [address] [place] [address] Performed By: #### 5 8410-2 ####[facility] [id number] [place] [address] [place] MCV (RBC) [Entitic vol] 92.0 fL Normal 80.0-100.0 [facility] Comment on above: Order Comment: Speci men Type: BLOOD SPECIMENOrdering Facility: [facility] Address: [address] [place] [address] Performed By: #### 5 8410-2 ####[facility] [id number] [place] [address] [place] Nucleated RBC (Bld) [#/Vol] 10*3/uL Normal <0.01 [facility] Comment on above: Order Comment: Speci men Type: BLOOD SPECIMENOrdering Facility: [facility] Address: [address] [place] [address] Performed By: #### 5 8410-2 ####[facility] [id number] [place] [address] [place] Platelet mean volume (Bld) [Entitic vol] 10.8 fL Normal 9.0-12.7 [facility] Comment on above: Order Comment: Speci men Type: BLOOD SPECIMENOrdering Facility: [facility] Address: [address] [place] [address] Performed By: #### 5 8410-2 ####[facility] LABCLIA [id number] [address] [place] [address] [place] Platelets (Bld) [#/Vol] 176 10*3/uL Normal 150-400 [facility] Comment on above: Order Comment: Speci men Type: BLOOD SPECIMENOrdering Facility: [facility] Address: [address] [place] [address] Performed By: #### 5 8410-2 ####[facility] LABCLIA [id number] [address] [place] [address] [place] RBC (Bld) [#/Vol] 2.87 10*6/uL Low 3.90-5.20 [facility] Comment on above: Order Comment: Speci men Type: BLOOD SPECIMENOrdering Facility: [facility] Address: [address] [place] [address] Performed By: #### 5 8410-2 ####[facility] LABCLIA [id number] [address] [place] [address] [place] WBC (Bld) [#/Vol] 8.18 10*3/uL Normal 3.70-11.00 [facility] Comment on above: Order Comment: Speci men Type: BLOOD SPECIMENOrdering Facility: [facility] Address: [address] [place] [address] Performed By: #### 5 8410-2 ####[facility] LABCLIA [id number] [address] [place] [address] [place] CRP SerPl-mCncon 02-18-2025 CRP [Mass/Vol] 14.6 mg/dL High <0.9 [facility] Comment on above: Order Comment: Speci men Type: BLOOD SPECIMENOrdering Facility: [facility] Address: [address] [place] [address] Performed By: #### 1 988-5 ####[facility] LABCLIA [id number] [address] [place] [address] [place] Magnesium SerPl-mCncon 02-18 Magnesium [Mass/Vol] 2.1 mg/dL Normal 1.7-2.3 [facility] Comment on above: Order Comment: Speci men Type: BLOOD SPECIMENOrdering Facility: [facility] Address: [address] [place] [address] Performed By: #### 2 4362-6, ####[facility] LABCLIA [id number] [address], [facility] [place] Renal function 2000 panelon 02-18-2025 Albumin [Mass/Vol] 2.9 g/dL Low 3.9-4.9 [facility] Comment on above: Order Comment: Speci men Type: BLOOD SPECIMENOrdering Facility: [facility] Address: [address] [place] [address] Performed By: #### 2 4362-6, ####[facility] LABCLIA [id number] [address], [facility] [place] Anion gap [Moles/Vol] 11 mmol/L Normal 8-15 [facility] Comment on above: Order Comment: Speci men Type: BLOOD SPECIMENOrdering Facility: [facility] Address: [address] [place] [address] Performed By: #### 2 4362-6, ####[facility] LABCLIA [id number] [place] [address] [place] Calcium [Mass/Vol] 7.8 mg/dL Low 8.5-10.2 [facility] Comment on above: Order Comment: Speci men Type: BLOOD SPECIMENOrdering Facility: [facility] Address: [address] [place] [address] Performed By: #### 2 4362-6, ####[facility] LABCLIA [id number] [address] [place] [address] [place] Chloride [Moles/Vol] 103 mmol/L Normal 98-107 [facility] Comment on above: Order Comment: Speci men Type: BLOOD SPECIMENOrdering Facility: [facility] Address: [address] [place] [address] Performed By: #### 2 4362-6, ####[facility] LABCLIA [id number] [place] [address] [place] CO2 [Moles/Vol] 20 mmol/L Low 22-30 [facility] Comment on above: Order Comment: Speci men Type: BLOOD SPECIMENOrdering Facility: [facility] Address: [address] [place] [address] Performed By: #### 2 4362-6, ####[facility] LABIA [id number] [address] [place] [facility] Creatinine [Mass/Vol] 0.41 mg/dL Low 0.58-0.96 [facility] Comment on above: Order Comment: Speci men Type: BLOOD SPECIMENOrdering Facility: [facility] Address: [address] [place] [address] Performed By: #### 2 4362-6, ####[facility]IA [id number] [place] [address] [place] eGFRcr SerPlBld CKD-EPI 2020 130 mL/min/1.73m??? Normal >=60 [facility] Comment on above: Order Comment: Speci men Type: BLOOD SPECIMENOrdering Facility: [facility] Address: [address] [place] [address] Result Comment: Desiree mated Glomerular Filtration Rate (eGFR) is calculated using the 2020 CKD-EPI creatinine equation. This equation utilizes serum creatinine, sex, and age as parameters. The creatinine assay has traceable calibration to isotope dilution-mass spectrometry. Refer to KDIGO guidelines for clinical interpretation. In patients with unstable renal function, e.g. those with acute kidney injury, the eGFR may not accurately reflect actual GFR. Performed By: #### 2 4362-6, ####[facility] LABIA [id number] [address] [address] [place] Glucose [Mass/Vol] 239 mg/dL High 74-99 [facility] Comment on above: Order Comment: Speci men Type: BLOOD SPECIMENOrdering Facility: [facility] Address: [address] [place] [address] Result Comment: The [place] Diabetes Association (ADA) provides guidance for cutoff values for fasting glucose and random glucose. The ADA defines fasting as no caloric intake for at least 8 hours. Fasting plasma glucose results between 100 to 125 mg/dL indicate increased risk for diabetes (prediabetes).Fasting plasma glucose results greater than or equal to 126 mg/dL meet the criteria for diagnosis of diabetes. In the absence of unequivocal hyperglycemia, results should be confirmed by repeat testing. In a patient with classic symptoms of hyperglycemia or hyperglycemic crisis, random plasma glucose results greater than or equal to 200 mg/dL meet the criteria for diagnosis of diabetes.Reference: Standards of Medical Care in Diabetes 2016, [place] [employer]. Diabetes Care. 2016.39(Suppl 1). Performed By: #### 2 4362-6, ####[facility] LABIA [id number] [address] [address] [place] Phosphate [Mass/Vol] 3.4 mg/dL Normal 2.7-4.8 [facility] Comment on above: Order Comment: Speci men Type: BLOOD SPECIMENOrdering Facility: [facility] Address: [address] [place] [address] Performed By: #### 2 4362-6, ####[facility] [id number] [address] [address] [place] Potassium [Moles/Vol] 4.4 mmol/L Normal 3.7-5.1 [facility] Comment on above: Order Comment: Speci men Type: BLOOD SPECIMENOrdering Facility: [facility] Address: [address] [place] [address] Performed By: #### 2 4362-6, ####[facility] LABCLIA [id number] [place] [address] [place] Sodium [Moles/Vol] 134 mmol/L Low 136-144 [facility] Comment on above: Order Comment: Speci men Type: BLOOD SPECIMENOrdering Facility: [facility] Address: [address] [place] [address] Performed By: #### 2 4362-6, ####[facility] LABCLIA [id number] [place] [address] [place] Urea nitrogen [Mass/Vol] 13 mg/dL Normal 7-21 [facility] Comment on above: Order Comment: Speci men Type: BLOOD SPECIMENOrdering Facility: [facility] Address: [address] [place] [address] Performed By: #### 2 4362-6, ####[facility] LABCLIA [id number] [place] [address] [place] CBC panel Auto (Bld)on 02-17 Erythrocyte distribution width (RBC) [Ratio] 13.5 % Normal 11.5-15.0 [facility] Comment on above: Order Comment: Speci men Type: BLOOD SPECIMENOrdering Facility: [facility] Address: [address] [place] [address] Performed By: #### 5 8410-2 ####[facility] LABCLIA [id number] [place] [address] [place] Hematocrit (Bld) [Volume fraction] 27.4 % Low 36.0-46.0 [facility] Comment on above: Order Comment: Speci men Type: BLOOD SPECIMENOrdering Facility: [facility] Address: [address] [place] [address] Performed By: #### 5 8410-2 ####[facility] LABCLIA [id number] [place] [address] [place] Hemoglobin (Bld) [Mass/Vol] 9.0 g/dL Low 11.5-15.5 [facility] Comment on above: Order Comment: Speci men Type: BLOOD SPECIMENOrdering Facility: [facility] Address: [address] [place] [address] Performed By: #### 5 8410-2 ####[facility]IA [id number] [place] [address] [place] MCH (RBC) [Entitic mass] 29.9 pg Normal 26.0-34.0 [facility] Comment on above: Order Comment: Speci men Type: BLOOD SPECIMENOrdering Facility: [facility] Address: [address] [place] [address] Performed By: #### 5 8410-2 ####[facility]IA [id number] [address] [place] [facility] MCHC (RBC) [Mass/Vol] 32.8 g/dL Normal 30.5-36.0 [facility] Comment on above: Order Comment: Speci men Type: BLOOD SPECIMENOrdering Facility: [facility] Address: [address] [place] [address] Performed By: #### 5 8410-2 ####[facility] LABIA [id number] [place] [address] [place] MCV (RBC) [Entitic vol] 91.0 fL Normal 80.0-100.0 [facility] Comment on above: Order Comment: Speci men Type: BLOOD SPECIMENOrdering Facility: [facility] Address: [address] [place] [address] Performed By: #### 5 8410-2 ####[facility] LABCLIA [id number] [place] [address] [place] Nucleated RBC (Bld) [#/Vol] 10*3/uL Normal <0.01 [facility] Comment on above: Order Comment: Speci men Type: BLOOD SPECIMENOrdering Facility: [facility] Address: [address] [place] [address] Performed By: #### 5 8410-2 ####[facility]IA [id number] [place] [address] [place] Platelet mean volume (Bld) [Entitic vol] 11.2 fL Normal 9.0-12.7 [facility] Comment on above: Order Comment: Speci men Type: BLOOD SPECIMENOrdering Facility: [facility] Address: [address] [place] [address] Performed By: #### 5 8410-2 ####[facility]IA [id number] [place] [address] [place] Platelets (Bld) [#/Vol] 164 10*3/uL Normal 150-400 [facility] Comment on above: Order Comment: Speci men Type: BLOOD SPECIMENOrdering Facility: [facility] Address: [address] [place] [address] Performed By: #### 5 8410-2 ####[facility]IA [id number] [place] [address] [place] RBC (Bld) [#/Vol] 3.01 10*6/uL Low 3.90-5.20 [facility] Comment on above: Order Comment: Speci men Type: BLOOD SPECIMENOrdering Facility: [facility] Address: [address] [place] [address] Performed By: #### 5 8410-2 ####[facility] [id number] [place] [address] [place] WBC (Bld) [#/Vol] 9.64 10*3/uL Normal 3.70-11.00 [facility] Comment on above: Order Comment: Speci men Type: BLOOD SPECIMENOrdering Facility: [facility] Address: [address] [place] [address] [place] [address] Performed By: #### 5 8410-2 ####[facility]IA [id number] [address] [address] [place] CONSULT PROGon 02-17-2025 CONSULT PROG Normal [facility] CRP SerPl-mCncon 02-17-2025 CRP [Mass/Vol] 16.8 mg/dL High <0.9 [facility] Comment on above: Order Comment: Speci men Type: BLOOD SPECIMENOrdering Facility: [facility] Address: [address] [place] [address] Performed By: #### 1 988-5 ####[facility]IA [id number] [place] [address] [place] CRP [Mass/Vol] 17.7 mg/dL High <0.9 [facility] Comment on above: Order Comment: Speci men Type: BLOOD SPECIMENOrdering Facility: [facility] Address: [address] [place] [address] Performed By: #### 2 4362-6, 1987-11, ####[facility]IA [id number] [place] [address] [place] Magnesium SerPl-mCncon 02-17 Magnesium [Mass/Vol] 1.8 mg/dL Normal 1.7-2.3 [facility] Comment on above: Order Comment: Speci men Type: BLOOD SPECIMENOrdering Facility: [facility] Address: [address] [place], [place] [address] Performed By: #### 2 4362-6, 1987-11, ####[facility] [id number] [address] [address] [place] Renal function 2000 panelon 02-17-2025 Albumin [Mass/Vol] 3.0 g/dL Low 3.9-4.9 [facility] Comment on above: Order Comment: Speci men Type: BLOOD SPECIMENOrdering Facility: [facility] Address: [address] [place] [address] Performed By: #### 2 436-6, 1987-11, ####[facility] LABCLIA [id number] [address] [address] [place] Anion gap [Moles/Vol] 11 mmol/L Normal 8-15 [facility] Comment on above: Order Comment: Speci men Type: BLOOD SPECIMENOrdering Facility: [facility] Address: [address] [place] [address] Performed By: #### 2 436-6, 1987-11, ####[facility] LABCLIA [id number] [address] [address] [place] Calcium [Mass/Vol] 8.1 mg/dL Low 8.5-10.2 [facility] Comment on above: Order Comment: Speci men Type: BLOOD SPECIMENOrdering Facility: [facility] Address: [address] [place] [address] Performed By: #### 2 436-6, 1987-11, ####[facility] LABCLIA [id number] [address] [address] [place] Chloride [Moles/Vol] 102 mmol/L Normal 98-107 [facility] Comment on above: Order Comment: Speci men Type: BLOOD SPECIMENOrdering Facility: [facility] Address: [address] [place] [address] Performed By: #### 2 436-6, 1987-11, ####[facility] LABCLIA [id number] [address] [place] [address] [place] CO2 [Moles/Vol] 22 mmol/L Normal 22-30 [facility] Comment on above: Order Comment: Speci men Type: BLOOD SPECIMENOrdering Facility: [facility] Address: [address] [place] [address] Performed By: #### 2 4362-6, 1987-11, ####[facility] [id number] [address] [address] [place] Creatinine [Mass/Vol] 0.51 mg/dL Low 0.58-0.96 [facility] Comment on above: Order Comment: Speci men Type: BLOOD SPECIMENOrdering Facility: [facility] Address: [address] [place] [address] Performed By: #### 2 4362-6, 1987-11, ####[facility] [id number] [address] [address] [place] eGFRcr SerPlBld CKD-EPI 2020 123 mL/min/1.73m??? Normal >=60 [facility] Comment on above: Order Comment: Elfego pollock Type: BLOOD SPECIMENOrdering Facility: [facility] Address: [address] [place] [address] Result Comment: Desiree mated Glomerular Filtration Rate (eGFR) is calculated using the 2020 CKD-EPI creatinine equation. This equation utilizes serum creatinine, sex, and age as parameters. The creatinine assay has traceable calibration to isotope dilution-mass spectrometry. Refer to KDIGO guidelines for clinical interpretation. In patients with unstable renal function, e.g. those with acute kidney injury, the eGFR may not accurately reflect actual GFR. Performed By: #### 2 4362-6, ####[facility] [id number] [address] [address] [place] Glucose [Mass/Vol] 109 mg/dL High 74-99 [facility] Comment on above: Order Comment: Speci men Type: BLOOD SPECIMENOrdering Facility: [facility] Address: [address] [place] [address] Result Comment: The [place] Diabetes Association (ADA) provides guidance for cutoff values for fasting glucose and random glucose. The ADA defines fasting as no caloric intake for at least 8 hours. Fasting plasma glucose results between 100 to 125 mg/dL indicate increased risk for diabetes (prediabetes).Fasting plasma glucose results greater than or equal to 126 mg/dL meet the criteria for diagnosis of diabetes. In the absence of unequivocal hyperglycemia, results should be confirmed by repeat testing. In a patient with classic symptoms of hyperglycemia or hyperglycemic crisis, random plasma glucose results greater than or equal to 200 mg/dL meet the criteria for diagnosis of diabetes.Reference: Standards of Medical Care in Diabetes 2016, [place] [employer]. Diabetes Care. 2016.39(Suppl 1). Performed By: #### 2 43608-10, ####[facility] LABCLIA [id number] [address] [address] [place] Phosphate [Mass/Vol] 1.4 mg/dL Low 2.7-4.8 [facility] Comment on above: Order Comment: Speci men Type: BLOOD SPECIMENOrdering Facility: [facility] Address: [address] [place] [address] Performed By: #### 2 4361-12, ####[facility] LABCLIA [id number] [address] [address] [place] Potassium [Moles/Vol] 3.6 mmol/L Low 3.7-5.1 [facility] Comment on above: Order Comment: Speci men Type: BLOOD SPECIMENOrdering Facility: [facility] Address: [address] [place] [address] Performed By: #### 2 4361-12, ####[facility] LABCLIA [id number] [address] [address] [place] Sodium [Moles/Vol] 135 mmol/L Low 136-144 [facility] Comment on above: Order Comment: Speci men Type: BLOOD SPECIMENOrdering Facility: [facility] Address: [address] [place], [place] [address] Performed By: #### 2 43608-10, ####[facility] LABCLIA [id number] [address] [place] [address] [place] Urea nitrogen [Mass/Vol] 11 mg/dL Normal 7-21 [facility] Comment on above: Order Comment: Speci men Type: BLOOD SPECIMENOrdering Facility: [facility] Address: [address] [place] [address] Performed By: #### 2 4362-6, 1987-11, ####[facility] LABCLIA [id number] [address] [place] [address] [place] Albumin SerPl-mCncon 025 Albumin [Mass/Vol] 3.4 g/dL Low 3.9-4.9 [facility] Comment on above: Order Comment: Speci men Type: BLOOD SPECIMENOrdering Facility: [facility] Address: [address] [place] [address] Performed By: #### 1 988-5, 1751-01, , ####[facility]IA [id number] [address] [address] [place] Basic metabolic 2000 panelon 02-16-2025 Anion gap [Moles/Vol] 10 mmol/L Normal 8-15 [facility] Comment on above: Order Comment: Speci men Type: BLOOD SPECIMENOrdering Facility: [facility] Address: [address] [place] [address] Performed By: #### 1 988-5, 7, , ####[facility] LABCLIA [id number] [address] [place] [address] [place] Calcium [Mass/Vol] 7.5 mg/dL Low 8.5-10.2 [facility] Comment on above: Order Comment: Speci men Type: BLOOD SPECIMENOrdering Facility: [facility] Address: [address] [place] [address] Result Comment: Resu lt rechecked. Performed By: #### 1 988-5, 1750-7, 66959-0, ####[facility] LABCLIA [id number] [address] [address] [place] Chloride [Moles/Vol] 105 mmol/L Normal 98-107 [facility] Comment on above: Order Comment: Speci men Type: BLOOD SPECIMENOrdering Facility: [facility] Address: [address] [place] [address] Performed By: #### 1 988-5, 7, 40311-3, ####[facility] LABCLIA [id number] [place] [address] [place] CO2 [Moles/Vol] 24 mmol/L Normal 22-30 [facility] Comment on above: Order Comment: Speci men Type: BLOOD SPECIMENOrdering Facility: [facility] Address: [address] [place] [address] Performed By: #### 1 988-5, 7, 61816-8, ####[facility] LABCLIA [id number] [place] [address] [place] Creatinine [Mass/Vol] 0.52 mg/dL Low 0.58-0.96 [facility] Comment on above: Order Comment: Speci men Type: BLOOD SPECIMENOrdering Facility: [facility] Address: [address] [place] [address] Performed By: #### 1 988-5, 7, 59187-5, ####[facility] LABCLIA [id number] [place] [address] [place] eGFRcr SerPlBld CKD-EPI 2020 123 mL/min/1.73m??? Normal >=60 [facility] Comment on above: Order Comment: Speci men Type: BLOOD SPECIMENOrdering Facility: [facility] Address: [address], [place] [address] Result Comment: Desiree mated Glomerular Filtration Rate (eGFR) is calculated using the 2020 CKD-EPI creatinine equation. This equation utilizes serum creatinine, sex, and age as parameters. The creatinine assay has traceable calibration to isotope dilution-mass spectrometry. Refer to KDIGO guidelines for clinical interpretation. In patients with unstable renal function, e.g. those with acute kidney injury, the eGFR may not accurately reflect actual GFR. Performed By: #### 1 988-5, 1751-01, 30786-4, ####[facility]IA [id number] [address] [address] [place] Glucose [Mass/Vol] 107 mg/dL High 74-99 [facility] Comment on above: Order Comment: Elfego pollock Type: BLOOD SPECIMENOrdering Facility: [facility] Address: [address] [place] [address] Result Comment: The [place] Diabetes Association (ADA) provides guidance for cutoff values for fasting glucose and random glucose. The ADA defines fasting as no caloric intake for at least 8 hours. Fasting plasma glucose results between 100 to 125 mg/dL indicate increased risk for diabetes (prediabetes).Fasting plasma glucose results greater than or equal to 126 mg/dL meet the criteria for diagnosis of diabetes. In the absence of unequivocal hyperglycemia, results should be confirmed by repeat testing. In a patient with classic symptoms of hyperglycemia or hyperglycemic crisis, random plasma glucose results greater than or equal to 200 mg/dL meet the criteria for diagnosis of diabetes.Reference: Standards of Medical Care in Diabetes 2016, [place] [employer]. Diabetes Care. 2016.39(Suppl 1). Performed By: #### 1 988-5, 1751-01, 85085-4, ####[facility] [id number] [address] [address] [place] Potassium [Moles/Vol] 3.3 mmol/L Low 3.7-5.1 [facility] Comment on above: Order Comment: Elfego pollock Type: BLOOD SPECIMENOrdering Facility: [facility] Address: [address] [place] [address] Performed By: #### 1 988-5, 1751-01, 66646-6, ####[facility] LABCLIA [id number] [address] [address] [place] Sodium [Moles/Vol] 139 mmol/L Normal 136-144 [facility] Comment on above: Order Comment: Speci men Type: BLOOD SPECIMENOrdering Facility: [facility] Address: [address] [place] [address] Performed By: #### 1 988-5, 1751-01, 15146-5, ####[facility] LABIA [id number] [place] [address] [place] Urea nitrogen [Mass/Vol] 11 mg/dL Normal 7-21 [facility] Comment on above: Order Comment: Speci men Type: BLOOD SPECIMENOrdering Facility: [facility] Address: [address] [place] [address] Performed By: #### 1 988-5, 1751-01, 77025-8, ####[facility] LABIA [id number] [place] [id number] [place] CASE MGT INIT ASSESon 2024 CASE MGT INIT ASSES Normal [facility] CBC W Auto Differential pane l (Bld)on 02-16-2025 Basophils (Bld) [#/Vol] 10*3/uL Normal <0.11 [facility] Comment on above: Order Comment: Speci men Type: BLOOD SPECIMENOrdering Facility: [facility] Address: [address] [place] [address] Performed By: #### 5 7021-8 ####[facility] LABIA [id number] [place] [address] [place] Basophils/100 WBC (Bld) 0.1 % Normal [facility] Comment on above: Order Comment: Speci men Type: BLOOD SPECIMENOrdering Facility: [facility] Address: [address] [place] [address] Performed By: #### 5 7021-8 ####[facility] LABCLIA [id number] [address], [place] [address] [place] Differential cell count method Nom (Bld) Auto Normal [facility] Comment on above: Order Comment: Speci men Type: BLOOD SPECIMENOrdering Facility: [facility] Address: [address] [place] [address] Performed By: #### 5 7021-8 ####[facility] LABCLIA [id number] [address], [place] [address] [place] Eosinophils (Bld) [#/Vol] 10*3/uL Normal <0.46 [facility] Comment on above: Order Comment: Speci men Type: BLOOD SPECIMENOrdering Facility: [facility] Address: [address] [place] [address] Performed By: #### 5 7021-8 ####[facility] LABCLIA [id number] [address], [place] [address] [place] Eosinophils/100 WBC (Bld) 0.2 % Normal [facility] Comment on above: Order Comment: Speci men Type: BLOOD SPECIMENOrdering Facility: [facility] Address: [address] [place] [address] Performed By: #### 5 7021-8 ####[facility] LABCLIA [id number] [place] [address] [place] Erythrocyte distribution width (RBC) [Ratio] 13.6 % Normal 11.5-15.0 [facility] Comment on above: Order Comment: Speci men Type: BLOOD SPECIMENOrdering Facility: [facility] Address: [address] [place] [address] Performed By: #### 5 7021-8 ####[facility] LABCLIA [id number] [address], [place] [address] [place] Hematocrit (Bld) [Volume fraction] 30.2 % Low 36.0-46.0 [facility] Comment on above: Order Comment: Speci men Type: BLOOD SPECIMENOrdering Facility: [facility] Address: [address] [place] [address] Performed By: #### 5 7021-8 ####[facility] LABCLIA [id number] [facility] [place] [address] [place] Hemoglobin (Bld) [Mass/Vol] 10.0 g/dL Low 11.5-15.5 [facility] Comment on above: Order Comment: Speci men Type: BLOOD SPECIMENOrdering Facility: [facility] Address: [address] [place] [address] Performed By: #### 5 7021-8 ####[facility] LABIA [id number] [place] [address] [place] Immature granulocytes (Bld) [#/Vol] 0.04 10*3/uL Normal <0.10 [facility] Comment on above: Order Comment: Speci men Type: BLOOD SPECIMENOrdering Facility: [facility] Address: [address] [place] [address] Performed By: #### 5 7021-8 ####[facility] LABIA [id number] [place] [address] [place] Immature granulocytes/100 WBC (Bld) 0.5 % Normal [facility] Comment on above: Order Comment: Speci men Type: BLOOD SPECIMENOrdering Facility: [facility] Address: [address] [place] [address] Performed By: #### 5 7021-8 ####[facility]IA [id number] [place] [address] [place] Lymphocytes (Bld) [#/Vol] 0.83 10*3/uL Low 1.00-4.00 [facility] Comment on above: Order Comment: Speci men Type: BLOOD SPECIMENOrdering Facility: [facility] Address: [address] [place] [address] Performed By: #### 5 7021-8 ####[facility]IA [id number] [address], [place] [address] [place] Lymphocytes/100 WBC (Bld) 9.9 % Normal [facility] Comment on above: Order Comment: Speci men Type: BLOOD SPECIMENOrdering Facility: [facility] Address: [address] [place] [address] Performed By: #### 5 7021-8 ####[facility] LABIA [id number] [address], [facility] [place] MCH (RBC) [Entitic mass] 29.8 pg Normal 26.0-34.0 [facility] Comment on above: Order Comment: Speci men Type: BLOOD SPECIMENOrdering Facility: [facility] Address: [address] [place] [address] Performed By: #### 5 7021-8 ####[facility] LABIA [id number] [address], [facility]95 [place] MCHC (RBC) [Mass/Vol] 33.1 g/dL Normal 30.5-36.0 [facility] Comment on above: Order Comment: Speci men Type: BLOOD SPECIMENOrdering Facility: [facility] Address: [address] [place] [address] Performed By: #### 5 7021-8 ####[facility] LABIA [id number] [address], [facility] [place] MCV (RBC) [Entitic vol] 89.9 fL Normal 80.0-100.0 [facility] Comment on above: Order Comment: Speci men Type: BLOOD SPECIMENOrdering Facility: [facility] Address: [address] [place] [address] Performed By: #### 5 7021-8 ####[facility] LABIA [id number] [address], [facility]95 [place] Monocytes (Bld) [#/Vol] 0.74 10*3/uL Normal <0.87 [facility] Comment on above: Order Comment: Speci men Type: BLOOD SPECIMENOrdering Facility: [facility] Address: [address] [place] [address] Performed By: #### 5 7021-8 ####[facility] LABCLIA [id number] [place] [address] [place] Monocytes/100 WBC (Bld) 8.8 % Normal [facility] Comment on above: Order Comment: Speci men Type: BLOOD SPECIMENOrdering Facility: [facility] Address: [address] [place] [address] Performed By: #### 5 7021-8 ####[facility] LABCLIA [id number] [place] [address] [place] Neutrophils (Bld) [#/Vol] 6.77 10*3/uL Normal 1.45-7.50 [facility] Comment on above: Order Comment: Speci men Type: BLOOD SPECIMENOrdering Facility: [facility] Address: [address] [place] [address] Performed By: #### 5 7021-8 ####[facility] LABCLIA [id number] [place] [address] [place] Neutrophils/100 WBC (Bld) 80.5 % Normal [facility] Comment on above: Order Comment: Speci men Type: BLOOD SPECIMENOrdering Facility: [facility] Address: [address] [place] [address] Performed By: #### 5 7021-8 ####[facility] LABCLIA [id number] [place] [address] [place] Nucleated RBC (Bld) [#/Vol] 10*3/uL Normal <0.01 [facility] Comment on above: Order Comment: Speci men Type: BLOOD SPECIMENOrdering Facility: [facility] Address: [address] [place] [address] Performed By: #### 5 7021-8 ####[facility] LABCLIA [id number] [place] [address] [place] Nucleated RBC/100 WBC (Bld) [Ratio] 0.0 /100 WBC Normal [facility] Comment on above: Order Comment: Speci men Type: BLOOD SPECIMENOrdering Facility: [facility] Address: [address] [place] [address] Performed By: #### 5 7021-8 ####[facility] LABIA [id number] [place] [address] [place] Platelet mean volume (Bld) [Entitic vol] 11.0 fL Normal 9.0-12.7 [facility] Comment on above: Order Comment: Speci men Type: BLOOD SPECIMENOrdering Facility: [facility] Address: [address] [place] [address] Performed By: #### 5 7021-8 ####[facility] LABIA [id number] [place] [address] [place] Platelets (Bld) [#/Vol] 179 10*3/uL Normal 150-400 [facility] Comment on above: Order Comment: Speci men Type: BLOOD SPECIMENOrdering Facility: [facility] Address: [address] [place] [address] Performed By: #### 5 7021-8 ####[facility] LABCLIA [id number] [place] [address] [place] RBC (Bld) [#/Vol] 3.36 10*6/uL Low 3.90-5.20 [facility] Comment on above: Order Comment: Speci men Type: BLOOD SPECIMENOrdering Facility: [facility] Address: [address] [place] [address] Performed By: #### 5 7021-8 ####[facility] LABCLIA [id number] [place] [id number] [place] WBC (Bld) [#/Vol] 8.41 10*3/uL Normal 3.70-11.00 [facility] Comment on above: Order Comment: Speci men Type: BLOOD SPECIMENOrdering Facility: [facility] Address: [address] [place] [address] Performed By: #### 5 7021-8 ####[facility] LABCLIA [id number] [place] [address] [place] CONSULTon 02-16-2025 CONSULT Normal [facility] CRP SerPl-mCncon 02-16-2025 CRP [Mass/Vol] 10.7 mg/dL High <0.9 [facility] Comment on above: Order Comment: Speci men Type: BLOOD SPECIMENOrdering Facility: [facility] Address: [address] [place] [address] Performed By: #### 1 988-5, 1751-7, 25258-8, 12259-7 ####[facility] LABCLIA [id number] [place] [id number] [place] Magnesium SerPl-mCncon 02-16 Magnesium [Mass/Vol] 1.7 mg/dL Normal 1.7-2.3 [facility] Comment on above: Order Comment: Speci men Type: BLOOD SPECIMENOrdering Facility: [facility] Address: [address] [place] [address] Performed By: #### 1 988-5, 1751-7, 66270-8, 45622-5 ####[facility] LABCLIA [id number] [place] [id number] [place] NUTRITIONon 02-16-2025 NUTRITION Normal [facility] Phosphate SerPl-mCncon 02-16 Phosphate [Mass/Vol] 2.7 mg/dL Normal 2.7-4.8 [facility] Comment on above: Order Comment: Speci men Type: BLOOD SPECIMENOrdering Facility: [facility] Address: [address] [place] [address] Performed By: #### 2 777-1 ####[facility] LABCLIA [id number] [place] [address] [place] XR CHEST 1V FRONTAL PORTon 0 02-16-2025 XR CHEST 1V FRONTAL PORT Normal [facility] ANES POSTPROC EVALon 025 ANES POSTPROC EVAL Normal [facility] ANES PRE-OPon 02-15-2025 ANES PRE-OP Normal [facility] BRIEF OP NOTon 02-15-2025 BRIEF OP NOT Normal [facility] CNPNon 02-15-2025 CNPN Normal [facility] HISTORY PHYSICALon HISTORY PHYSICAL Normal [facility] NURSING PROGon 02-15-2025 NURSING PROG Normal [facility] OPERATIVE NOon 02-15-2025 OPERATIVE NO Normal [facility] Pathology biopsy report Eliu (Tiss)on 02-15-2025 AP DISCLAIMER Normal [facility] Comment on above: Order Comment: Speci men Type: TISSUE SPECIMENOrdering Facility: [facility] Address: [address] [place] [address] Result Comment: George mills Developed Test (LDT) Disclaimer:Performance characteristics of immunohistochemical, immunofluorescent, and chromogenic in-situ hybridization tests have been determined by the performing laboratory within [facility]'s [facility] Pathology and Laboratory Medicine Department ([facility], [facility], [facility], [facility], [facility], [facility], or [facility]) in a manner consistent with CLIA requirements. One or more of these tests may not have been cleared or approved by the FDA. [facility] is regulated under CLIA as qualified to perform high-complexity testing. These tests are used for clinical purposes. These should not be regarded as investigational or for research. Positive and negative controls stain appropriately. Performed By: #### 6 6121-5 ####[facility] LABCLIA [id number] [address] [place] CASE REPORT Normal [facility] Comment on above: Order Comment: Speci men Type: TISSUE SPECIMENOrdering Facility: [facility] Address: [address] [place] [address] Result Comment: Surg ica Pathology Report Case: [id number] Provider: Elsy Rousseau DO Collected: 02/15/2025 12:06 PMOrdering Location: Admitting Received: 02/15/2025 02:18 PMPathologist: Madhuri Acosta MDSpecimens: A) - Small Bowel, Ileostomy, bearing ileostomy B) - Colon, Resection Performed By: #### 6 6121-5 ####[facility] LABCLIA [id number] [address] [place] CLINICAL HISTORY Normal [facility] Comment on above: Order Comment: Speci men Type: TISSUE SPECIMENOrdering Facility: [facility] Address: [address] [place] [address] Result Comment: Pre- op diagnosis:Crohn's disease of small and large intestines with complication (HCC) [K50.819] Performed By: #### 6 6121-5 ####[facility] LABCLIA [id number] [address] [facility] FINAL DIAGNOSIS Normal [facility] Comment on above: Order Comment: Speci men Type: TISSUE SPECIMENOrdering Facility: [facility] Address: [address] [place] [address] Result Comment: A. S mall Bowel, Ileostomy:- Segment of small bowel with intact enterocutaneous anastomosis with superficial erosions and post-surgical mural changes, consistent with ileostomy site changesB. Colon, Resection:- Chronic active enteritis with granulomatous inflammation, fibromuscular thickening of the submucosa and dense fibrous adhesions; consistent with Crohn disease- Negative for dysplasia- Benign reactive pericolic lymph nodes, three with non-necrotizing epithelioid granulomas at 1708 EDT Performed By: #### 6 6121-5 ####[facility] LABCLIA [id number] [place] [address] [place] FINAL PERFORMING LAB Normal [facility] Comment on above: Order Comment: Speci men Type: TISSUE SPECIMENOrdering Facility: [facility] Address: [address] [place] [address] Result Comment: Diag nostic interpretation performed at: [facility], [address] [place] [address], [facility] [place] [address] CLIA# [id number] Director: Rikki Hendrickson MD Performed By: #### 6 6121-5 ####[facility] LABCLIA [id number] [address] [facility] GROSS DESCRIPTION Normal [facility] Comment on above: Order Comment: Speci men Type: TISSUE SPECIMENOrdering Facility: [facility] Address: [address] [place] [address] Result Comment: A. S paresh Bowel, IleostomyFresh designated ileostomy is an ostomy specimen that measures 3.6 cm in length and 3.5 cm in diameter. Both ends are open. Surrounding one end is a gutierrez-hyde rim of skin. Mucosa slightly prolapsed at the ostomy site. The bowel is opened to reveal pink-gutierrez mucosa, showing normal mucosal folds. [employer] Drafter sections are submitted in 1 cassette.WE February 15, 2025 3:25 PMGross examination performed at [facility], [address] [place], [place] [address]B. Colon, ResectionReceived fresh designated colon resection is an unoriented segment of large bowel that measures 5 cm in length and 7 cm in circumference. The serosal surface is ragged and slightly dusky. There is an area of outpouching present. The bowel is opened to reveal pink-gutierrez, slightly granular mucosa. A staple line is present. The wall thickness is 0.5 cm. There are no masses or lesions identified. [employer] Dra[employer] sections are submitted as follows:B1. Margin 1 perpendicular inked orange and margin 2 perpendicular inked blueB2. Staple lineB3. Bowel at area of outpouchingB4-B5. Bowel full-thickness on each side of the staple lineB6. Three intact lymph nodesWE February 15, 2025 3:23 PMGross examination performed at [facility], [address] [place] [address]\ Performed By: #### 6 6121-5 ####[facility] [id number] [address] [place] CBC panel Auto (Bld)on 02-14 Erythrocyte distribution width (RBC) [Ratio] 13.2 % 11.5 - 15.0 % [facility] Hematocrit (Bld) [Volume fraction] 36.1 % 36.0 - 46.0 % [facility] Hemoglobin (Bld) [Mass/Vol] 11.9 g/dL 11.5 - 15.5 g/dL [facility] Interpretation and review of laboratory results Normal [facility] MCH (RBC) [Entitic mass] 29.5 pg 26.0 - 34.0 pg [facility] MCHC (RBC) [Mass/Vol] 33.0 g/dL 30.5 - 36.0 g/dL [facility] MCV (RBC) [Entitic vol] 89.4 fL 80.0 - 100.0 fL [facility] Nucleated RBC (Bld) [#/Vol] NINF [facility] Platelet mean volume (Bld) [Entitic vol] 11.4 fL 9.0 - 12.7 fL [facility] Platelets (Bld) [#/Vol] 207 10*3/uL [facility] RBC (Bld) [#/Vol] 4.04 10*6/uL 3.90 - 5.20 m/uL [facility] WBC (Bld) [#/Vol] 5.67 10*3/uL [facility] Erythrocyte distribution width (RBC) [Ratio] 13.2 % Normal 11.5-15.0 [facility] Comment on above: Order Comment: Speci men Type: BLOOD SPECIMENOrdering Facility: [facility] Address: [address] [place] [address] Performed By: #### 5 8410-2 ####[facility] [id number] [address] [facility] Hematocrit (Bld) [Volume fraction] 36.1 % Normal 36.0-46.0 [facility] Comment on above: Order Comment: Speci men Type: BLOOD SPECIMENOrdering Facility: [facility] Address: [address] [place] [address] Performed By: #### 5 8410-2 ####[facility] [id number] [place] [address] [place] Hemoglobin (Bld) [Mass/Vol] 11.9 g/dL Normal 11.5-15.5 [facility] Comment on above: Order Comment: Speci men Type: BLOOD SPECIMENOrdering Facility: [facility] Address: [address] [place] [address] Performed By: #### 5 8410-2 ####[facility] [id number] [address] [place] MCH (RBC) [Entitic mass] 29.5 pg Normal 26.0-34.0 [facility] Comment on above: Order Comment: Speci men Type: BLOOD SPECIMENOrdering Facility: [facility] Address: [address] [place] [address] Performed By: #### 5 8410-2 ####[facility] [id number] [place] [address] [place] MCHC (RBC) [Mass/Vol] 33.0 g/dL Normal 30.5-36.0 [facility] Comment on above: Order Comment: Speci men Type: BLOOD SPECIMENOrdering Facility: [facility] Address: [address] [place] [address] Performed By: #### 5 8410-2 ####[facility] [id number] [place] [address] [place] MCV (RBC) [Entitic vol] 89.4 fL Normal 80.0-100.0 [facility] Comment on above: Order Comment: Speci men Type: BLOOD SPECIMENOrdering Facility: [facility] Address: [address] [place] [address] Performed By: #### 5 8410-2 ####[facility] [id number] [place] [address] [place] Nucleated RBC (Bld) [#/Vol] 10*3/uL Normal <0.01 [facility] Comment on above: Order Comment: Speci men Type: BLOOD SPECIMENOrdering Facility: [facility] Address: [address] [place] [address] Performed By: #### 5 8410-2 ####[facility] [id number] [place] [address] [place] Platelet mean volume (Bld) [Entitic vol] 11.4 fL Normal 9.0-12.7 [facility] Comment on above: Order Comment: Speci men Type: BLOOD SPECIMENOrdering Facility: [facility] Address: [address] [place] [address] Performed By: #### 5 8410-2 ####[facility] [id number] [place] [address] [place] Platelets (Bld) [#/Vol] 207 10*3/uL Normal 150-400 [facility] Comment on above: Order Comment: Speci men Type: BLOOD SPECIMENOrdering Facility: [facility] Address: [address] [place] [address] Performed By: #### 5 8410-2 ####[facility] [id number] [place] [address] [place] RBC (Bld) [#/Vol] 4.04 10*6/uL Normal 3.90-5.20 [facility] Comment on above: Order Comment: Speci men Type: BLOOD SPECIMENOrdering Facility: [facility] Address: [address] [place] [address] Performed By: #### 5 8410-2 ####[facility] [id number] [place] [address] [place] WBC (Bld) [#/Vol] 5.67 10*3/uL Normal 3.70-11.00 [facility] Comment on above: Order Comment: Speci men Type: BLOOD SPECIMENOrdering Facility: [facility] Address: [address] [place] [address] Performed By: #### 5 8410-2 ####[facility] [id number] [place] [address] [place] CNCNPATEDon 02-14-2025 CNCNPATED Normal [facility] Comprehensive metabolic 2000 panelon 02-14-2025 Albumin [Mass/Vol] 4.4 g/dL 3.9 - 4.9 g/dL [facility] ALP [Catalytic activity/Vol] 95 U/L 34 - 123 U/L [facility] ALT [Catalytic activity/Vol] 38 U/L 7 - 38 U/L [facility] Anion gap [Moles/Vol] 10 mmol/L 8 - 15 mmol/L [facility] AST [Catalytic activity/Vol] 32 U/L 13 - 35 U/L [facility] Bilirubin [Mass/Vol] 0.4 mg/dL 0.2 - 1.3 mg/dL [facility] Calcium [Mass/Vol] 9.4 mg/dL 8.5 - 10.2 mg/dL [facility] Chloride [Moles/Vol] 103 mmol/L 98 - 107 mmol/L [facility] CO2 [Moles/Vol] 26 mmol/L 22 - 30 mmol/L [facility] Creatinine [Mass/Vol] 0.58 mg/dL 0.58 - 0.96 mg/dL [facility] GFR/1.73 sq M.predicted among non-blacks MDRD (S/P/Bld) [Vol rate/Area] 120 mL/min/{1.73_m2} - PINF [facility] Comment on above: Estimated Glomerular Filtration Rate (eGFR) is calculated using the 2020 CKD-EPI creatinine equation. This equation utilizes serum creatinine, sex, and age as parameters. The creatinine assay has traceable calibration to isotope dilution-mass spectrometry. Refer to KDIGO guidelines for clinical interpretation. In patients with unstable renal function, e.g. those with acute kidney injury, the eGFR may not accurately reflect actual GFR. Glucose [Mass/Vol] 96 mg/dL 74 - 99 mg/dL [facility] Comment on above: The [place] Diab[employer] s Association (ADA) provides guidance for cutoff values for fasting glucose and random glucose. The ADA defines fasting as no caloric intake for at least 8 hours. Fasting plasma glucose results between 100 to 125 mg/dL indicate increased risk for diabetes (prediabetes). Fasting plasma glucose results greater than or equal to 126 mg/dL meet the criteria for diagnosis of diabetes. In the absence of unequivocal hyperglycemia, results should be confirmed by repeat testing. In a patient with classic symptoms of hyperglycemia or hyperglycemic crisis, random plasma glucose results greater than or equal to 200 mg/dL meet the criteria for diagnosis of diabetes. Reference: Standards of Medical Care in Diabetes 2016, [place] Diabetes Association. Diabetes Care. 2016.39(Suppl 1). Interpretation and review of laboratory results Abnormal [facility] Potassium [Moles/Vol] 4.5 mmol/L 3.7 - 5.1 mmol/L [facility] Protein [Mass/Vol] 7.6 g/dL 6.3 - 8.0 g/dL [facility] Sodium [Moles/Vol] 139 mmol/L 136 - 144 mmol/L [facility] Urea nitrogen [Mass/Vol] 24 mg/dL High 7 - 21 mg/dL [facility] Albumin [Mass/Vol] 4.4 g/dL Normal 3.9-4.9 [facility] Comment on above: Order Comment: Speci men Type: BLOOD SPECIMENOrdering Facility: [facility] Address: [address] [place] [address] Performed By: #### 2 4323-8, 76768-0, 2777-1 ####[facility] [id number] [place] [address] [place] ALP [Catalytic activity/Vol] 95 U/L Normal 34-123 [facility] Comment on above: Order Comment: Speci men Type: BLOOD SPECIMENOrdering Facility: [facility] Address: [address] [place] [address] Performed By: #### 2 4323-8, 65299-2, 2776- ####[facility] [id number] [place] [address] [place] ALT [Catalytic activity/Vol] 38 U/L Normal 7-38 [facility] Comment on above: Order Comment: Speci men Type: BLOOD SPECIMENOrdering Facility: [facility] Address: [address] [place] [address] Performed By: #### 2 4323-8, , 2776-07 ####[facility] [id number] [place] [address] [place] Anion gap [Moles/Vol] 10 mmol/L Normal 8-15 [facility] Comment on above: Order Comment: Speci men Type: BLOOD SPECIMENOrdering Facility: [facility] Address: [address] [place] [address] Performed By: #### 2 4323-8, , 2776-07 ####[facility] [id number] [place] [address] [place] AST [Catalytic activity/Vol] 32 U/L Normal 13-35 [facility] Comment on above: Order Comment: Speci men Type: BLOOD SPECIMENOrdering Facility: [facility] Address: [address] [place] [address] Performed By: #### 2 4323-8, , 2776-07 ####[facility] [id number] [place] [address] [place] Bilirubin [Mass/Vol] 0.4 mg/dL Normal 0.2-1.3 [facility] Comment on above: Order Comment: Speci men Type: BLOOD SPECIMENOrdering Facility: [facility] Address: [address] [place] [address] Performed By: #### 2 4323-8, 92073-8, 2777-1 ####[facility] [id number] [place] [address] [place] Calcium [Mass/Vol] 9.4 mg/dL Normal 8.5-10.2 [facility] Comment on above: Order Comment: Speci men Type: BLOOD SPECIMENOrdering Facility: [facility] Address: [address] [place] [address] Performed By: #### 2 4323-8, , 2776- ####[facility] [id number] [place] [address] [place] Chloride [Moles/Vol] 103 mmol/L Normal 98-107 [facility] Comment on above: Order Comment: Speci men Type: BLOOD SPECIMENOrdering Facility: [facility] Address: [address] [place] [address] Performed By: #### 2 4323-8, , 2776-07 ####[facility] [id number] [place] [address] [place] CO2 [Moles/Vol] 26 mmol/L Normal 22-30 [facility] Comment on above: Order Comment: Speci men Type: BLOOD SPECIMENOrdering Facility: [facility] Address: [address] [place] [address] Performed By: #### 2 4323-8, , 2776-07 ####[facility] [id number] [place] [address] [place] Creatinine [Mass/Vol] 0.58 mg/dL Normal 0.58-0.96 [facility] Comment on above: Order Comment: Speci men Type: BLOOD SPECIMENOrdering Facility: [facility] Address: [address] [place], [place] [address] Performed By: #### 2 4323-8, 15857-5, 2776- ####[facility] [id number] [place] [address] [place] eGFRcr SerPlBld CKD-EPI 2020 120 mL/min/1.73m??? Normal >=60 [facility] Comment on above: Order Comment: Elfego pollock Type: BLOOD SPECIMENOrdering Facility: [facility] Address: [address] [place] [address] Result Comment: Desiree mated Glomerular Filtration Rate (eGFR) is calculated using the 2020 CKD-EPI creatinine equation. This equation utilizes serum creatinine, sex, and age as parameters. The creatinine assay has traceable calibration to isotope dilution-mass spectrometry. Refer to KDIGO guidelines for clinical interpretation. In patients with unstable renal function, e.g. those with acute kidney injury, the eGFR may not accurately reflect actual GFR. Performed By: #### 2 4323-8, 50493-5, 2776- ####[facility] [id number] [place] [address] [place] Glucose [Mass/Vol] 96 mg/dL Normal 74-99 [facility] Comment on above: Order Comment: Elfego pollock Type: BLOOD SPECIMENOrdering Facility: [facility] Address: [address] [place] [address] Result Comment: The [place] Diabetes Association (ADA) provides guidance for cutoff values for fasting glucose and random glucose. The ADA defines fasting as no caloric intake for at least 8 hours. Fasting plasma glucose results between 100 to 125 mg/dL indicate increased risk for diabetes (prediabetes).Fasting plasma glucose results greater than or equal to 126 mg/dL meet the criteria for diagnosis of diabetes. In the absence of unequivocal hyperglycemia, results should be confirmed by repeat testing. In a patient with classic symptoms of hyperglycemia or hyperglycemic crisis, random plasma glucose results greater than or equal to 200 mg/dL meet the criteria for diagnosis of diabetes.Reference: Standards of Medical Care in Diabetes 2016, [place] Diabetes Association. Diabetes Care. 2016.39(Suppl 1). Performed By: #### 2 4323-8, 90312-1, 2776- ####[facility] [id number] [place] [id number] [place] Potassium [Moles/Vol] 4.5 mmol/L Normal 3.7-5.1 [facility] Comment on above: Order Comment: Speci men Type: BLOOD SPECIMENOrdering Facility: [facility] Address: [address] [place] [address] Performed By: #### 2 4323-8, 84270-6, 2776- ####[facility] [id number] [place] [address] [place] Protein [Mass/Vol] 7.6 g/dL Normal 6.3-8.0 [facility] Comment on above: Order Comment: Speci men Type: BLOOD SPECIMENOrdering Facility: [facility] Address: [address] [place] [address] Performed By: #### 2 4323-8, , 2776-07 ####[facility] [id number] [place] [address] [place] Sodium [Moles/Vol] 139 mmol/L Normal 136-144 [facility] Comment on above: Order Comment: Speci men Type: BLOOD SPECIMENOrdering Facility: [facility] Address: [address] [place] [address] Performed By: #### 2 4323-8, , 2776-07 ####[facility] [id number] [place] [address] [place] Urea nitrogen [Mass/Vol] 24 mg/dL High 7-21 [facility] Comment on above: Order Comment: Speci men Type: BLOOD SPECIMENOrdering Facility: [facility] Address: [address] [place] [address] Performed By: #### 2 4323-8, , 2776-07 ####[facility] [id number] [place] [id number] [place] HISTORY PHYSICALon 5 HISTORY PHYSICAL Normal [facility] MAGNESIUMon 02-14-2025 Magnesium [Mass/Vol] 2.2 mg/dL 1.7 - 2.3 mg/dL [facility] Magnesium SerPl-mCncon 02-14 Magnesium [Mass/Vol] 2.2 mg/dL Normal 1.7-2.3 [facility] Comment on above: Order Comment: Speci men Type: BLOOD SPECIMENOrdering Facility: [facility] Address: [address] [place] [address] Performed By: #### 2 4323-8, 24206-1, 2777-1 ####[facility] [id number] [address] [place] No Panel Informationon 02-14 Interpretation and review of laboratory results Normal [facility] PHOSPHORUS INORGANICon 02-14 Phosphate [Mass/Vol] 4.3 mg/dL 2.7 - 4.8 mg/dL [facility] Phosphate SerPl-mCncon 02-14 Phosphate [Mass/Vol] 4.3 mg/dL Normal 2.7-4.8 [facility] Comment on above: Order Comment: Speci men Type: BLOOD SPECIMENOrdering Facility: [facility] Address: [address] [place] [address] Performed By: #### 2 4323-8, 25577-4, 2777- ####[facility] [id number] [address] [place] RF Colon Views W barium cont rast PRon 02-14-2025 IMPRESSION: NO LEAK. Running Instructor: PSCJessie Transcribe Date/Time: Feb 14 2025 11:46A Dictated by : FRANCINE STAFFORD MD This examination was interpreted and the report reviewed and electronically signed by: ARTHUR MARMOLEJO MD on Feb 14 2025 11:55AM [facility] * * *Final Report* * * DATE OF EXAM: Feb 14 2025 11:25AM HGX 5385 - XR COLON SINGLE CONTRAST / PROCEDURE REASON: Crohn's disease of small and large intestines with complication (HCC) * * * * Physician Interpretation * * * * WATER SOLUBLE CONTRAST ENEMA HISTORY: Crohn's disease with bowel obstruction status post excision of previous ileocolic anastomosis, creation of end ileostomy, and colon stapled at the mid ascending colon.. Preprocedure evaluation for possible ileostomy takedown. TECHNIQUE: Water soluble contrast was administered rectally under intermittent fluoroscopy. COMPARISON: CT enterography 08/17/2024 Contrast: RECTAL: 600 ml of OMNIPAQUE 300+WATER Fluoroscopy radiation summary: Fluoroscopy time: 2:06 (min:sec). Air kerma: 78.6 mGy. RESULT: Pest Control Applicator: No dilated bowel in the included field of view. Findings: Contrast fills the rectum and refluxes to the level of the mid ascending colon staple line. The mid ascending colon staple line is intact without leak or disruption. Staff Physician: Arthur Marmolejo M.D. was present for the critical portions of the procedure and was immediately available throughout the remainder of the procedure. DIVISION OF RADIOLOGY Provider, [facility] - 02/14/2025 * * *Final Report* * * DATE OF EXAM: Feb 14 2025 11:25AM HGX 5385 - XR COLON SINGLE CONTRAST / PROCEDURE REASON: Crohn's disease of small and large intestines with complication (HCC) * * * * Physician Interpretation * * * * WATER SOLUBLE CONTRAST ENEMA HISTORY: Crohn's disease with bowel obstruction status post excision of previous ileocolic anastomosis, creation of end ileostomy, and colon stapled at the mid ascending colon.. Preprocedure evaluation for possible ileostomy takedown. TECHNIQUE: Water soluble contrast was administered rectally under intermittent fluoroscopy. COMPARISON: CT enterography 08/17/2024 Contrast: RECTAL: 600 ml of OMNIPAQUE 300+WATER Fluoroscopy radiation summary: Fluoroscopy time: 2:06 (min:sec). Air kerma: 78.6 mGy. RESULT: Pest Control Applicator: No dilated bowel in the included field of view. Findings: Contrast fills the rectum and refluxes to the level of the mid ascending colon staple line. The mid ascending colon staple line is intact without leak or disruption. Staff Physician: Arthur Marmolejo M.D. was present for the critical portions of the procedure and was immediately available throughout the remainder of the procedure. IMPRESSION IMPRESSION: NO LEAK. Running Instructor: EPIFANIO Transcribe Date/Time: Feb 14 2025 11:46A Dictated by : FRANCINE STAFFORD MD This examination was interpreted and the report reviewed and electronically signed by: ARTHUR MARMOLEJO MD on Feb 14 2025 11:55AM EST [facility] Radiology Study observation (narrative) [facility] RF Colon Views W barium cont rast PROrdered By: [facility] Provider on 02-14-2025 [facility] XR COLON SINGLE CONTRASTon 0 02-14-2025 XR COLON SINGLE CONTRAST Normal [facility] CNPNon 02-13-2025 CNPN Normal [facility] CBC panel Auto (Bld)on 02-06 Erythrocyte distribution width (RBC) [Ratio] 13.6 % Normal 11.5-15.0 [facility] Comment on above: Order Comment: Speci men Type: BLOOD SPECIMENOrdering Facility: [facility] Address: [address] [place] [address] Performed By: #### 5 8410-2 ####[facility] LABCLIA [id number] [place] [address] Hematocrit (Bld) [Volume fraction] 35.8 % Low 36.0-46.0 [facility] Comment on above: Order Comment: Speci men Type: BLOOD SPECIMENOrdering Facility: [facility] Address: [address] [place] [address] Performed By: #### 5 8410-2 ####[facility] LABCLIA [id number] [place] [address] Hemoglobin (Bld) [Mass/Vol] 12.1 g/dL Normal 11.5-15.5 [facility] Comment on above: Order Comment: Speci men Type: BLOOD SPECIMENOrdering Facility: [facility] Address: [address] [place] [address] Performed By: #### 5 8410-2 ####[facility] LABCLIA [id number] [place] [address] MCH (RBC) [Entitic mass] 30.3 pg Normal 26.0-34.0 [facility] Comment on above: Order Comment: Speci men Type: BLOOD SPECIMENOrdering Facility: [facility] Address: [address] [place] [address] Performed By: #### 5 8410-2 ####[facility] LABCLIA [id number] [place] [address] MCHC (RBC) [Mass/Vol] 33.8 g/dL Normal 30.5-36.0 [facility] Comment on above: Order Comment: Speci men Type: BLOOD SPECIMENOrdering Facility: [facility] Address: [address] [place] [address] Performed By: #### 5 8410-2 ####[facility] LABCLIA [id number] [place] [address] MCV (RBC) [Entitic vol] 89.7 fL Normal 80.0-100.0 [facility] Comment on above: Order Comment: Speci men Type: BLOOD SPECIMENOrdering Facility: [facility] Address: [address] [place] [address] Performed By: #### 5 8410-2 ####[facility] LABIA [id number] [place] [address] Nucleated RBC (Bld) [#/Vol] 10*3/uL Normal <0.01 [facility] Comment on above: Order Comment: Speci men Type: BLOOD SPECIMENOrdering Facility: [facility] Address: [address] [place] [address] Performed By: #### 5 8410-2 ####[facility] LABIA [id number] [place] [address] Platelet mean volume (Bld) [Entitic vol] 11.7 fL Normal 9.0-12.7 [facility] Comment on above: Order Comment: Speci men Type: BLOOD SPECIMENOrdering Facility: [facility] Address: [address] [place] [address] Performed By: #### 5 8410-2 ####[facility] LABCLIA [id number] [place] [address] Platelets (Bld) [#/Vol] 144 10*3/uL Low 150-400 [facility] Comment on above: Order Comment: Speci men Type: BLOOD SPECIMENOrdering Facility: [facility] Address: [address] [place] [address] Performed By: #### 5 8410-2 ####[facility] LABCLIA [id number] [place] [address] RBC (Bld) [#/Vol] 3.99 10*6/uL Normal 3.90-5.20 [facility] Comment on above: Order Comment: Speci men Type: BLOOD SPECIMENOrdering Facility: [facility] Address: [address] [place] [address] Performed By: #### 5 8410-2 ####[facility] LABIA [id number] [place] [address] WBC (Bld) [#/Vol] 3.15 10*3/uL Low 3.70-11.00 [facility] Comment on above: Order Comment: Speci men Type: BLOOD SPECIMENOrdering Facility: [facility] Address: [address] [place] [address] Performed By: #### 5 8410-2 ####[facility] LABCLIA [id number] [place] [address] Comprehensive metabolic 2000 panelon 02-06-2025 Albumin [Mass/Vol] 3.8 g/dL Low 3.9-4.9 [facility] Comment on above: Order Comment: Speci men Type: BLOOD SPECIMENOrdering Facility: [facility] Address: [address] [place] [address] Performed By: #### 2 777-1, 72081-4, 77156-9 ####[facility] LABCLIA [id number] [place] [address] ALP [Catalytic activity/Vol] 77 U/L Normal 34-123 [facility] Comment on above: Order Comment: Speci men Type: BLOOD SPECIMENOrdering Facility: [facility] Address: [address] [place] [address] Performed By: #### 2 777-1, , ####[facility] LABCLIA [id number] [place] [address] ALT [Catalytic activity/Vol] 30 U/L Normal 7-38 [facility] Comment on above: Order Comment: Speci men Type: BLOOD SPECIMENOrdering Facility: [facility] Address: [address] [place] [address] Performed By: #### 2 777-1, , ####[facility] LABCLIA [id number] [place] [address] Anion gap [Moles/Vol] 10 mmol/L Normal 8-15 [facility] Comment on above: Order Comment: Speci men Type: BLOOD SPECIMENOrdering Facility: [facility] Address: [address] [place] [address] Performed By: #### 2 777-1, , ####[facility] LABCLIA [id number] [place] [address] AST [Catalytic activity/Vol] 26 U/L Normal 13-35 [facility] Comment on above: Order Comment: Speci men Type: BLOOD SPECIMENOrdering Facility: [facility] Address: [address] [place] [address] Performed By: #### 2 777-1, , ####[facility] LABCLIA [id number] [place] [address] Bilirubin [Mass/Vol] 0.3 mg/dL Normal 0.2-1.3 [facility] Comment on above: Order Comment: Speci men Type: BLOOD SPECIMENOrdering Facility: [facility] Address: [address] [place] [address] Performed By: #### 2 777-1, , ####[facility] LABCLIA [id number] [place] [address] Calcium [Mass/Vol] 8.6 mg/dL Normal 8.5-10.2 [facility] Comment on above: Order Comment: Speci men Type: BLOOD SPECIMENOrdering Facility: [facility] Address: [address] [place] [address] Performed By: #### 2 777-1, , ####[facility] LABIA [id number] [place] [address] Chloride [Moles/Vol] 105 mmol/L Normal 98-107 [facility] Comment on above: Order Comment: Speci men Type: BLOOD SPECIMENOrdering Facility: [facility] Address: [address] [place] [address] Performed By: #### 2 777-1, , ####[facility] LABIA [id number] [place] [address] CO2 [Moles/Vol] 22 mmol/L Normal 22-30 [facility] Comment on above: Order Comment: Speci men Type: BLOOD SPECIMENOrdering Facility: [facility] Address: [address] [place] [address] Performed By: #### 2 777-1, , ####[facility] LABIA [id number] [place] [address] Creatinine [Mass/Vol] 0.45 mg/dL Low 0.58-0.96 [facility] Comment on above: Order Comment: Speci men Type: BLOOD SPECIMENOrdering Facility: [facility] Address: [address] [place] [address] Performed By: #### 2 777-1, 02971-6, 62679-0 ####[facility] LABCLIA [id number] [place] [address] eGFRcr SerPlBld CKD-EPI 2020 127 mL/min/1.73m??? Normal >=60 [facility] Comment on above: Order Comment: Elfego pollock Type: BLOOD SPECIMENOrdering Facility: [facility] Address: [address] [place] [address] Result Comment: Desiree mated Glomerular Filtration Rate (eGFR) is calculated using the 2020 CKD-EPI creatinine equation. This equation utilizes serum creatinine, sex, and age as parameters. The creatinine assay has traceable calibration to isotope dilution-mass spectrometry. Refer to KDIGO guidelines for clinical interpretation. In patients with unstable renal function, e.g. those with acute kidney injury, the eGFR may not accurately reflect actual GFR. Performed By: #### 2 777-1, 74786-7, ####[facility] LABCLIA [id number] [place] [address] Glucose [Mass/Vol] 106 mg/dL High 74-99 [facility] Comment on above: Order Comment: Elfego pollock Type: BLOOD SPECIMENOrdering Facility: [facility] Address: [address] [place] [address] Result Comment: The [place] Diabetes Association (ADA) provides guidance for cutoff values for fasting glucose and random glucose. The ADA defines fasting as no caloric intake for at least 8 hours. Fasting plasma glucose results between 100 to 125 mg/dL indicate increased risk for diabetes (prediabetes).Fasting plasma glucose results greater than or equal to 126 mg/dL meet the criteria for diagnosis of diabetes. In the absence of unequivocal hyperglycemia, results should be confirmed by repeat testing. In a patient with classic symptoms of hyperglycemia or hyperglycemic crisis, random plasma glucose results greater than or equal to 200 mg/dL meet the criteria for diagnosis of diabetes.Reference: Standards of Medical Care in Diabetes 2016, [place] Diabetes Association. Diabetes Care. 2016.39(Suppl 1). Performed By: #### 2 777-1, 79381-2, 79639-9 ####[facility] LABCLIA [id number] [place] [address] Potassium [Moles/Vol] 4.5 mmol/L Normal 3.7-5.1 [facility] Comment on above: Order Comment: Speci men Type: BLOOD SPECIMENOrdering Facility: [facility] Address: [address] [place] [address] Performed By: #### 2 777-1, , ####[facility] LABCLIA [id number] [place] [address] Protein [Mass/Vol] 6.8 g/dL Normal 6.3-8.0 [facility] Comment on above: Order Comment: Speci men Type: BLOOD SPECIMENOrdering Facility: [facility] Address: [address] [place] [address] Performed By: #### 2 777-1, , ####[facility] LABIA [id number] [place] [address] Sodium [Moles/Vol] 137 mmol/L Normal 136-144 [facility] Comment on above: Order Comment: Speci men Type: BLOOD SPECIMENOrdering Facility: [facility] Address: [address] [place] [address] Performed By: #### 2 777-1, , ####[facility] LABCLIA [id number] [place] [address] Urea nitrogen [Mass/Vol] 19 mg/dL Normal 7-21 [facility] Comment on above: Order Comment: Speci men Type: BLOOD SPECIMENOrdering Facility: [facility] Address: [address] [place] [address] Performed By: #### 2 777-1, , ####[facility] LABCLIA [id number] [place] [address] Magnesium SerPl-ncon 02-06 Magnesium [Mass/Vol] 2.1 mg/dL Normal 1.7-2.3 [facility] Comment on above: Order Comment: Speci men Type: BLOOD SPECIMENOrdering Facility: [facility] Address: [address] [place] [address] Performed By: #### 2 777-1, 03010-7, 60717-0 ####[facility] LABCLIA [id number] [place] [address] Phosphate [facility] 02-06 Phosphate [Mass/Vol] 2.6 mg/dL Low 2.7-4.8 [facility] Comment on above: Order Comment: Speci men Type: BLOOD SPECIMENOrdering Facility: [facility] Address: [address] [place] [address] Performed By: #### 2 777-1, , 33461-5 ####[facility] LABCLIA [id number] [place] [address] 25(OH)D3 [facility] 2024 25-hydroxyvitamin D3 [Mass/Vol] 47.2 ng/mL Normal 31.0-80.0 [facility] Comment on above: Order Comment: Speci men Type: BLOOD SPECIMENOrdering Facility: [facility] Address: [address] [place] [address] Result Comment: Clas sification of 25 [place] Vitamin D status:Deficiency/Insufficiency: < or = 30 ng/ml.Sufficiency/Optimal Levels: 31-80 ng/mLToxicity: > 100 ng/mL.Test performed by chemiluminescent immunoassay. Performed By: #### 1 989-3 ####[facility] LABCLIA [id number] [place] [address] [place] CBC panel Auto (Bld)on 01-30 Erythrocyte distribution width (RBC) [Ratio] 13.4 % 11.5 - 15.0 % [facility] Hematocrit (Bld) [Volume fraction] 35.1 % Low 36.0 - 46.0 % [facility] Hemoglobin (Bld) [Mass/Vol] 11.8 g/dL 11.5 - 15.5 g/dL [facility] Interpretation and review of laboratory results Abnormal [facility] MCH (RBC) [Entitic mass] 30.3 pg 26.0 - 34.0 pg [facility] MCHC (RBC) [Mass/Vol] 33.6 g/dL 30.5 - 36.0 g/dL [facility] MCV (RBC) [Entitic vol] 90 fL 80.0 - 100.0 fL [facility] Nucleated RBC (Bld) [#/Vol] NINF [facility] Platelet mean volume (Bld) [Entitic vol] 10.7 fL 9.0 - 12.7 fL [facility] Platelets (Bld) [#/Vol] 187 10*3/uL [facility] RBC (Bld) [#/Vol] 3.9 10*6/uL 3.90 - 5.20 m/uL [facility] WBC (Bld) [#/Vol] 5.87 10*3/uL [facility] Erythrocyte distribution width (RBC) [Ratio] 13.4 % Normal 11.5-15.0 [facility] Comment on above: Order Comment: Speci men Type: BLOOD SPECIMENOrdering Facility: [facility] Address: [address] [place] [address] Performed By: #### 5 8410-2 ####[facility] LABIA [id number] [place] [address] Hematocrit (Bld) [Volume fraction] 35.1 % Low 36.0-46.0 [facility] Comment on above: Order Comment: Speci men Type: BLOOD SPECIMENOrdering Facility: [facility] Address: [address] [place] [address] Performed By: #### 5 8410-2 ####[facility] LABIA [id number] [place] [address] Hemoglobin (Bld) [Mass/Vol] 11.8 g/dL Normal 11.5-15.5 [facility] Comment on above: Order Comment: Speci men Type: BLOOD SPECIMENOrdering Facility: [facility] Address: [address] [place] [address] Performed By: #### 5 8410-2 ####[facility] LABCLIA [id number] [place] [address] MCH (RBC) [Entitic mass] 30.3 pg Normal 26.0-34.0 [facility] Comment on above: Order Comment: Speci men Type: BLOOD SPECIMENOrdering Facility: [facility] Address: [address] [place] [address] Performed By: #### 5 8410-2 ####[facility] LABCLIA [id number] [place] [address] MCHC (RBC) [Mass/Vol] 33.6 g/dL Normal 30.5-36.0 [facility] Comment on above: Order Comment: Speci men Type: BLOOD SPECIMENOrdering Facility: [facility] Address: [address] [place] [address] Performed By: #### 5 8410-2 ####[facility] LABCLIA [id number] [place] [address] MCV (RBC) [Entitic vol] 90.0 fL Normal 80.0-100.0 [facility] Comment on above: Order Comment: Speci men Type: BLOOD SPECIMENOrdering Facility: [facility] Address: [address] [place] [address] Performed By: #### 5 8410-2 ####[facility] LABCLIA [id number] [place] [address] Nucleated RBC (Bld) [#/Vol] 10*3/uL Normal <0.01 [facility] Comment on above: Order Comment: Speci men Type: BLOOD SPECIMENOrdering Facility: [facility] Address: [address] [place] [address] Performed By: #### 5 8410-2 ####[facility] LABCLIA [id number] [place] [address] Platelet mean volume (Bld) [Entitic vol] 10.7 fL Normal 9.0-12.7 [facility] Comment on above: Order Comment: Speci men Type: BLOOD SPECIMENOrdering Facility: [facility] Address: [address] [place] [address] Performed By: #### 5 8410-2 ####[facility] LABCLIA [id number] [place] [address] Platelets (Bld) [#/Vol] 187 10*3/uL Normal 150-400 [facility] Comment on above: Order Comment: Speci men Type: BLOOD SPECIMENOrdering Facility: [facility] Address: [address] [place] [address] Performed By: #### 5 8410-2 ####[facility] LABIA [id number] [place] [address] RBC (Bld) [#/Vol] 3.90 10*6/uL Normal 3.90-5.20 [facility] Comment on above: Order Comment: Speci men Type: BLOOD SPECIMENOrdering Facility: [facility] Address: [address] [place] [address] Performed By: #### 5 8410-2 ####[facility] LABIA [id number] [place] [address] WBC (Bld) [#/Vol] 5.87 10*3/uL Normal 3.70-11.00 [facility] Comment on above: Order Comment: Speci men Type: BLOOD SPECIMENOrdering Facility: [facility] Address: [address] [place] [address] Performed By: #### 5 8410-2 ####[facility] [facility] [id number] [place] [address] Comprehensive metabolic 2000 panelOrdered By: Philly Guallpa on 01-30-2025 Albumin [Mass/Vol] 4.2 g/dL 3.9 - 4.9 g/dL [facility] ALP [Catalytic activity/Vol] 91 U/L 34 - 123 U/L [facility] ALT [Catalytic activity/Vol] 29 U/L 7 - 38 U/L [facility] Anion gap [Moles/Vol] 9 mmol/L 8 - 15 mmol/L [facility] AST [Catalytic activity/Vol] 24 U/L 13 - 35 U/L [facility] Bilirubin [Mass/Vol] 0.6 mg/dL 0.2 - 1.3 mg/dL [facility] Calcium [Mass/Vol] 9.2 mg/dL 8.5 - 10.2 mg/dL [facility] Chloride [Moles/Vol] 101 mmol/L 98 - 107 mmol/L [facility] CO2 [Moles/Vol] 25 mmol/L 22 - 30 mmol/L [facility] Creatinine [Mass/Vol] 0.65 mg/dL 0.58 - 0.96 mg/dL [facility] GFR/1.73 sq M.predicted among non-blacks MDRD (S/P/Bld) [Vol rate/Area] 116 mL/min/{1.73_m2} - PINF [facility] Comment on above: Estimated Glomerular Filtration Rate (eGFR) is calculated using the 2020 CKD-EPI creatinine equation. This equation utilizes serum creatinine, sex, and age as parameters. The creatinine assay has traceable calibration to isotope dilution-mass spectrometry. Refer to KDIGO guidelines for clinical interpretation. In patients with unstable renal function, e.g. those with acute kidney injury, the eGFR may not accurately reflect actual GFR. Glucose [Mass/Vol] 110 mg/dL High 74 - 99 mg/dL [facility] Comment on above: The [place] Di[employer] Association (ADA) provides guidance for cutoff values for fasting glucose and random glucose. The ADA defines fasting as no caloric intake for at least 8 hours. Fasting plasma glucose results between 100 to 125 mg/dL indicate increased risk for diabetes (prediabetes). Fasting plasma glucose results greater than or equal to 126 mg/dL meet the criteria for diagnosis of diabetes. In the absence of unequivocal hyperglycemia, results should be confirmed by repeat testing. In a patient with classic symptoms of hyperglycemia or hyperglycemic crisis, random plasma glucose results greater than or equal to 200 mg/dL meet the criteria for diagnosis of diabetes. Reference: Standards of Medical Care in Diabetes 2016, [place] [employer]. Diabetes Care. 2016.39(Suppl 1). Interpretation and review of laboratory results Abnormal [facility] Potassium [Moles/Vol] 4.6 mmol/L 3.7 - 5.1 mmol/L [facility] Protein [Mass/Vol] 7 g/dL 6.3 - 8.0 g/dL [facility] Sodium [Moles/Vol] 135 mmol/L Low 136 - 144 mmol/L [facility] Urea nitrogen [Mass/Vol] 26 mg/dL High 7 - 21 mg/dL [facility] metabolic 2000 panelon 01-30-2025 Albumin [Mass/Vol] 4.2 g/dL Normal 3.9-4.9 [facility] Comment on above: Order Comment: Speci men Type: BLOOD SPECIMENOrdering Facility: [facility] Address: [address] [place] [address] Performed By: #### 2 777-1, , ####[facility] LABCLIA [id number] [place] [address] ALP [Catalytic activity/Vol] 91 U/L Normal 34-123 [facility] Comment on above: Order Comment: Speci men Type: BLOOD SPECIMENOrdering Facility: [facility] Address: [address] [place] [address] Performed By: #### 2 777-1, , ####[facility] LABCLIA [id number] [place] [address] ALT [Catalytic activity/Vol] 29 U/L Normal 7-38 [facility] Comment on above: Order Comment: Speci men Type: BLOOD SPECIMENOrdering Facility: [facility] Address: [address] [place] [address] Performed By: #### 2 777-1, , ####[facility] LABIA [id number] [place] [address] Anion gap [Moles/Vol] 9 mmol/L Normal 8-15 [facility] Comment on above: Order Comment: Speci men Type: BLOOD SPECIMENOrdering Facility: [facility] Address: [address] [place] [address] Performed By: #### 2 777-1, , ####[facility] LABCLIA [id number] [place] [address] AST [Catalytic activity/Vol] 24 U/L Normal 13-35 [facility] Comment on above: Order Comment: Speci men Type: BLOOD SPECIMENOrdering Facility: [facility] Address: [address] [place], [place] [address] Performed By: #### 2 777-1, , ####[facility] LABIA [id number] [place] [address] Bilirubin [Mass/Vol] 0.6 mg/dL Normal 0.2-1.3 [facility] Comment on above: Order Comment: Speci men Type: BLOOD SPECIMENOrdering Facility: [facility] Address: [address] [place], [place] [address] Performed By: #### 2 777-1, , ####[facility] LABIA [id number] [place] [address] Calcium [Mass/Vol] 9.2 mg/dL Normal 8.5-10.2 [facility] Comment on above: Order Comment: Speci men Type: BLOOD SPECIMENOrdering Facility: [facility] Address: [address] [place] [address] Performed By: #### 2 777-1, , ####[facility] [id number] [place] [address] Chloride [Moles/Vol] 101 mmol/L Normal 98-107 [facility] Comment on above: Order Comment: Speci men Type: BLOOD SPECIMENOrdering Facility: [facility] Address: [address] [place] [address] Performed By: #### 2 777-1, , ####[facility] LABCLIA [id number] [place] [address] CO2 [Moles/Vol] 25 mmol/L Normal 22-30 [facility] Comment on above: Order Comment: Speci men Type: BLOOD SPECIMENOrdering Facility: [facility] Address: [address] [place] [address] Performed By: #### 2 777-1, , ####[facility] LABCLIA [id number] [place] [address] Creatinine [Mass/Vol] 0.65 mg/dL Normal 0.58-0.96 [facility] Comment on above: Order Comment: Speci men Type: BLOOD SPECIMENOrdering Facility: [facility] Address: [address] [place] [address] Performed By: #### 2 777-1, , ####[facility] LABIA [id number] [place] [address] eGFRcr SerPlBld CKD-EPI 2020 116 mL/min/1.73m??? Normal >=60 [facility] Comment on above: Order Comment: Speci men Type: BLOOD SPECIMENOrdering Facility: [facility] Address: [address] [place] [address] Result Comment: Desiree mated Glomerular Filtration Rate (eGFR) is calculated using the 2020 CKD-EPI creatinine equation. This equation utilizes serum creatinine, sex, and age as parameters. The creatinine assay has traceable calibration to isotope dilution-mass spectrometry. Refer to KDIGO guidelines for clinical interpretation. In patients with unstable renal function, e.g. those with acute kidney injury, the eGFR may not accurately reflect actual GFR. Performed By: #### 2 777-1, , ####[facility] LABCLIA [id number] [place] [address] Glucose [Mass/Vol] 110 mg/dL High 74-99 [facility] Comment on above: Order Comment: Speci men Type: BLOOD SPECIMENOrdering Facility: [facility] Address: [address] [place] [address] Result Comment: The [place] Diabetes Association (ADA) provides guidance for cutoff values for fasting glucose and random glucose. The ADA defines fasting as no caloric intake for at least 8 hours. Fasting plasma glucose results between 100 to 125 mg/dL indicate increased risk for diabetes (prediabetes).Fasting plasma glucose results greater than or equal to 126 mg/dL meet the criteria for diagnosis of diabetes. In the absence of unequivocal hyperglycemia, results should be confirmed by repeat testing. In a patient with classic symptoms of hyperglycemia or hyperglycemic crisis, random plasma glucose results greater than or equal to 200 mg/dL meet the criteria for diagnosis of diabetes.Reference: Standards of Medical Care in Diabetes 2016, [place] Diabetes [employer]. Diabetes Care. 2016.39(Suppl 1). Performed By: #### 2 777-1, , ####[facility] LABCLIA [id number] [place] [address] Potassium [Moles/Vol] 4.6 mmol/L Normal 3.7-5.1 [facility] Comment on above: Order Comment: Elfego pollock Type: BLOOD SPECIMENOrdering Facility: [facility] Address: [address] [place] [address] Performed By: #### 2 777-1, , ####[facility] LABCLIA [id number] [place] [address] Protein [Mass/Vol] 7.0 g/dL Normal 6.3-8.0 [facility] Comment on above: Order Comment: Darryli men Type: BLOOD SPECIMENOrdering Facility: [facility] Address: [address] [place] [address] Performed By: #### 2 777-1, , ####[facility] LABCLIA [id number] [place] [address] Sodium [Moles/Vol] 135 mmol/L Low 136-144 [facility] Comment on above: Order Comment: Speci men Type: BLOOD SPECIMENOrdering Facility: [facility] Address: [address] [place] [address] Performed By: #### 2 777-1, , ####[facility] LABCLIA [id number] [place] [address] Urea nitrogen [Mass/Vol] 26 mg/dL High 7-21 [facility] Comment on above: Order Comment: Speci men Type: BLOOD SPECIMENOrdering Facility: [facility] Address: [address] [place] [address] Performed By: #### 2 777-1, , ####[facility] LABCLIA [id number] [place] [address] MAGNESIUMon 01-30-2025 Magnesium [Mass/Vol] 2.1 mg/dL 1.7 - 2.3 mg/dL [facility] Magnesium SerPl-mCncon 01-30 Magnesium [Mass/Vol] 2.1 mg/dL Normal 1.7-2.3 [facility] Comment on above: Order Comment: Speci men Type: BLOOD SPECIMENOrdering Facility: [facility] Address: [address] [place] [address] Performed By: #### 2 777-1, , ####[facility] LABCLIA [id number] [place] [address] Magnesium [Mass/Vol]on 01-30 Interpretation and review of laboratory results Normal [facility] No Panel InformationOrdered By: Philly Guallpa on 01-30-2025 [facility] PHOSPHORUS INORGANICon 01-30 Phosphate [Mass/Vol] 3.4 mg/dL 2.7 - 4.8 mg/dL [facility] Phosphate SerPl-mCncon 01-30 Phosphate [Mass/Vol] 3.4 mg/dL Normal 2.7-4.8 [facility] Comment on above: Order Comment: Speci men Type: BLOOD SPECIMENOrdering Facility: [facility] Address: [address] [place] [address] Performed By: #### 2 777-1, 59276-1, 10095-2 ####[facility] LABCLIA [id number] [place] [address] Phosphate [Mass/Vol]on 01-30 Interpretation and review of laboratory results Normal [facility] CBC panel Auto (Bld)on 01-24 Erythrocyte distribution width (RBC) [Ratio] 13.5 % 11.5 - 15.0 % [facility] Hematocrit (Bld) [Volume fraction] 34.3 % Low 36.0 - 46.0 % [facility] Hemoglobin (Bld) [Mass/Vol] 11.4 g/dL Low 11.5 - 15.5 g/dL [facility] Interpretation and review of laboratory results Abnormal [facility] MCH (RBC) [Entitic mass] 30.1 pg 26.0 - 34.0 pg [facility] MCHC (RBC) [Mass/Vol] 33.2 g/dL 30.5 - 36.0 g/dL [facility] MCV (RBC) [Entitic vol] 90.5 fL 80.0 - 100.0 fL [facility] Nucleated RBC (Bld) [#/Vol] NINF [facility] Platelet mean volume (Bld) [Entitic vol] 10.9 fL 9.0 - 12.7 fL [facility] Platelets (Bld) [#/Vol] 183 10*3/uL [facility] RBC (Bld) [#/Vol] 3.79 10*6/uL Low 3.90 - 5.20 m/uL [facility] WBC (Bld) [#/Vol] 5.31 10*3/uL [facility] Erythrocyte distribution width (RBC) [Ratio] 13.5 % Normal 11.5-15.0 [facility] Comment on above: Order Comment: Speci men Type: BLOOD SPECIMENOrdering Facility: [facility] Address: [address] [place] [address] Performed By: #### 5 8410-2 ####[facility] LABCLIA [id number] [place] [address] Hematocrit (Bld) [Volume fraction] 34.3 % Low 36.0-46.0 [facility] Comment on above: Order Comment: Speci men Type: BLOOD SPECIMENOrdering Facility: [facility] Address: [address] [place] [address] Performed By: #### 5 8410-2 ####[facility] LABCLIA [id number] [place] [address] Hemoglobin (Bld) [Mass/Vol] 11.4 g/dL Low 11.5-15.5 [facility] Comment on above: Order Comment: Speci men Type: BLOOD SPECIMENOrdering Facility: [facility] Address: [address] [place] [address] Performed By: #### 5 8410-2 ####[facility] LABCLIA [id number] [place] [address] MCH (RBC) [Entitic mass] 30.1 pg Normal 26.0-34.0 [facility] Comment on above: Order Comment: Speci men Type: BLOOD SPECIMENOrdering Facility: [facility] Address: [address] [place] [address] Performed By: #### 5 8410-2 ####[facility] LABCLIA [id number] [place] [address] MCHC (RBC) [Mass/Vol] 33.2 g/dL Normal 30.5-36.0 [facility] Comment on above: Order Comment: Speci men Type: BLOOD SPECIMENOrdering Facility: [facility] Address: [address] [place] [address] Performed By: #### 5 8410-2 ####[facility] LABIA [id number] [place] [address] MCV (RBC) [Entitic vol] 90.5 fL Normal 80.0-100.0 [facility] Comment on above: Order Comment: Speci men Type: BLOOD SPECIMENOrdering Facility: [facility] Address: [address] [place] [address] Performed By: #### 5 8410-2 ####[facility] LABCLIA [id number] [place] [address] Nucleated RBC (Bld) [#/Vol] 10*3/uL Normal <0.01 [facility] Comment on above: Order Comment: Speci men Type: BLOOD SPECIMENOrdering Facility: [facility] Address: [address] [place] [address] Performed By: #### 5 8410-2 ####[facility] LABCLIA [id number] [place] [address] Platelet mean volume (Bld) [Entitic vol] 10.9 fL Normal 9.0-12.7 [facility] Comment on above: Order Comment: Speci men Type: BLOOD SPECIMENOrdering Facility: [facility] Address: [address] [place] [address] Performed By: #### 5 8410-2 ####[facility] LABCLIA [id number] [place] [address] Platelets (Bld) [#/Vol] 183 10*3/uL Normal 150-400 [facility] Comment on above: Order Comment: Speci men Type: BLOOD SPECIMENOrdering Facility: [facility] Address: [address] [place] [address] Performed By: #### 5 8410-2 ####[facility] LABCLIA [id number] [place] [address] RBC (Bld) [#/Vol] 3.79 10*6/uL Low 3.90-5.20 [facility] Comment on above: Order Comment: Speci men Type: BLOOD SPECIMENOrdering Facility: [facility] Address: [address] [place] [address] Performed By: #### 5 8410-2 ####[facility] LABCLIA [id number] [place] [address] WBC (Bld) [#/Vol] 5.31 10*3/uL Normal 3.70-11.00 [facility] Comment on above: Order Comment: Speci men Type: BLOOD SPECIMENOrdering Facility: [facility] Address: [address] [place] [address] Performed By: #### 5 8410-2 ####[facility] LABCLIA [id number] [place] [address] Comprehensive metabolic 2000 panelOrdered By: Philly Guallpa on 01-24-2025 Albumin [Mass/Vol] 3.9 g/dL 3.9 - 4.9 g/dL [facility] ALP [Catalytic activity/Vol] 88 U/L 34 - 123 U/L [facility] ALT [Catalytic activity/Vol] 32 U/L 7 - 38 U/L [facility] Anion gap [Moles/Vol] 7 mmol/L Low 8 - 15 mmol/L [facility] AST [Catalytic activity/Vol] 26 U/L 13 - 35 U/L [facility] Bilirubin [Mass/Vol] 0.3 mg/dL 0.2 - 1.3 mg/dL [facility] Calcium [Mass/Vol] 8.9 mg/dL 8.5 - 10.2 mg/dL [facility] Chloride [Moles/Vol] 104 mmol/L 98 - 107 mmol/L [facility] CO2 [Moles/Vol] 26 mmol/L 22 - 30 mmol/L [facility] Creatinine [Mass/Vol] 0.51 mg/dL Low 0.58 - 0.96 mg/dL [facility] GFR/1.73 sq M.predicted among non-blacks MDRD (S/P/Bld) [Vol rate/Area] 123 mL/min/{1.73_m2} - PINF [facility] Comment on above: Estimated Glomerular Filtration Rate (eGFR) is calculated using the 2020 CKD-EPI creatinine equation. This equation utilizes serum creatinine, sex, and age as parameters. The creatinine assay has traceable calibration to isotope dilution-mass spectrometry. Refer to KDIGO guidelines for clinical interpretation. In patients with unstable renal function, e.g. those with acute kidney injury, the eGFR may not accurately reflect actual GFR. Glucose [Mass/Vol] 100 mg/dL High 74 - 99 mg/dL [facility] Comment on above: The [place] Diabete s Association (ADA) provides guidance for cutoff values for fasting glucose and random glucose. The ADA defines fasting as no caloric intake for at least 8 hours. Fasting plasma glucose results between 100 to 125 mg/dL indicate increased risk for diabetes (prediabetes). Fasting plasma glucose results greater than or equal to 126 mg/dL meet the criteria for diagnosis of diabetes. In the absence of unequivocal hyperglycemia, results should be confirmed by repeat testing. In a patient with classic symptoms of hyperglycemia or hyperglycemic crisis, random plasma glucose results greater than or equal to 200 mg/dL meet the criteria for diagnosis of diabetes. Reference: Standards of Medical Care in Diabetes 2016, [place] Diabetes [employer]. Diabetes Care. 2016.39(Suppl 1). Interpretation and review of laboratory results Abnormal [facility] Potassium [Moles/Vol] 4.8 mmol/L 3.7 - 5.1 mmol/L [facility] Protein [Mass/Vol] 6.7 g/dL 6.3 - 8.0 g/dL [facility] Sodium [Moles/Vol] 137 mmol/L 136 - 144 mmol/L [facility] Urea nitrogen [Mass/Vol] 24 mg/dL High 7 - 21 mg/dL [facility] Comprehensive metabolic 2000 panelon 01-24-2025 Albumin [Mass/Vol] 3.9 g/dL Normal 3.9-4.9 [facility] Comment on above: Order Comment: Speci men Type: BLOOD SPECIMENOrdering Facility: [facility] Address: [address] [place] [address] Performed By: #### 2 777-1, , ####[facility] LABCLIA [id number] [place] [address] ALP [Catalytic activity/Vol] 88 U/L Normal 34-123 [facility] Comment on above: Order Comment: Speci men Type: BLOOD SPECIMENOrdering Facility: [facility] Address: [address] [place] [address] Performed By: #### 2 777-1, , ####[facility] LABCLIA [id number] [place] [address] ALT [Catalytic activity/Vol] 32 U/L Normal 7-38 [facility] Comment on above: Order Comment: Speci men Type: BLOOD SPECIMENOrdering Facility: [facility] Address: [address] [place] [address] Performed By: #### 2 777-1, , ####[facility] LABCLIA [id number] [place] [address] Anion gap [Moles/Vol] 7 mmol/L Low 8-15 [facility] Comment on above: Order Comment: Speci men Type: BLOOD SPECIMENOrdering Facility: [facility] Address: [address] [place] [address] Performed By: #### 2 777-1, , ####[facility] [place] LABCLIA [id number] [place] [address] AST [Catalytic activity/Vol] 26 U/L Normal 13-35 [facility] Comment on above: Order Comment: Speci men Type: BLOOD SPECIMENOrdering Facility: [facility] Address: [address] [place] [address] Performed By: #### 2 777-1, , ####[facility] LABCLIA [id number] [place] [address] Bilirubin [Mass/Vol] 0.3 mg/dL Normal 0.2-1.3 [facility] Comment on above: Order Comment: Speci men Type: BLOOD SPECIMENOrdering Facility: [facility] Address: [address] [place] [address] Performed By: #### 2 777-1, , ####[facility] LABCLIA [id number] [place] [address] Calcium [Mass/Vol] 8.9 mg/dL Normal 8.5-10.2 [facility] Comment on above: Order Comment: Speci men Type: BLOOD SPECIMENOrdering Facility: [facility] Address: [address] [place] [address] Performed By: #### 2 777-1, , ####[facility] LABCLIA [id number] [place] [address] Chloride [Moles/Vol] 104 mmol/L Normal 98-107 [facility] Comment on above: Order Comment: Speci men Type: BLOOD SPECIMENOrdering Facility: [facility] Address: [address] [place] [address] Performed By: #### 2 777-1, , ####[facility] LABIA [id number] [place] [address] CO2 [Moles/Vol] 26 mmol/L Normal 22-30 [facility] Comment on above: Order Comment: Speci men Type: BLOOD SPECIMENOrdering Facility: [facility] Address: [address] [place] [address] Performed By: #### 2 777-1, , ####[facility] LABIA [id number] [place] [address] Creatinine [Mass/Vol] 0.51 mg/dL Low 0.58-0.96 [facility] Comment on above: Order Comment: Speci men Type: BLOOD SPECIMENOrdering Facility: [facility] Address: [address] [place] [address] Performed By: #### 2 777-1, , ####[facility] LABIA [id number] [place] [address] eGFRcr SerPlBld CKD-EPI 2020 123 mL/min/1.73m??? Normal >=60 [facility] Comment on above: Order Comment: Speci men Type: BLOOD SPECIMENOrdering Facility: [facility] Address: [address] [place] [address] Result Comment: Desiree mated Glomerular Filtration Rate (eGFR) is calculated using the 2020 CKD-EPI creatinine equation. This equation utilizes serum creatinine, sex, and age as parameters. The creatinine assay has traceable calibration to isotope dilution-mass spectrometry. Refer to KDIGO guidelines for clinical interpretation. In patients with unstable renal function, e.g. those with acute kidney injury, the eGFR may not accurately reflect actual GFR. Performed By: #### 2 777-1, , ####[facility] LABIA [id number] [place] [address] Glucose [Mass/Vol] 100 mg/dL High 74-99 [facility] Comment on above: Order Comment: Elfego pollock Type: BLOOD SPECIMENOrdering Facility: [facility] Address: [address] [place] [address] Result Comment: The [place] Diabetes Association (ADA) provides guidance for cutoff values for fasting glucose and random glucose. The ADA defines fasting as no caloric intake for at least 8 hours. Fasting plasma glucose results between 100 to 125 mg/dL indicate increased risk for diabetes (prediabetes).Fasting plasma glucose results greater than or equal to 126 mg/dL meet the criteria for diagnosis of diabetes. In the absence of unequivocal hyperglycemia, results should be confirmed by repeat testing. In a patient with classic symptoms of hyperglycemia or hyperglycemic crisis, random plasma glucose results greater than or equal to 200 mg/dL meet the criteria for diagnosis of diabetes.Reference: Standards of Medical Care in Diabetes 2016, [place] [employer]. Diabetes Care. 2016.39(Suppl 1). Performed By: #### 2 777-1, , ####[facility] LABIA [id number] [place] [address] Potassium [Moles/Vol] 4.8 mmol/L Normal 3.7-5.1 [facility] Comment on above: Order Comment: Elfego pollock Type: BLOOD SPECIMENOrdering Facility: [facility] Address: [address] [place] [address] Performed By: #### 2 777-1, , ####[facility] LABIA [id number] [place] [address] Protein [Mass/Vol] 6.7 g/dL Normal 6.3-8.0 [facility] Comment on above: Order Comment: Speci men Type: BLOOD SPECIMENOrdering Facility: [facility] Address: [address] [place] [address] Performed By: #### 2 777-1, , ####[facility] LABIA [id number] [place] [address] Sodium [Moles/Vol] 137 mmol/L Normal 136-144 [facility] Comment on above: Order Comment: Speci men Type: BLOOD SPECIMENOrdering Facility: [facility] Address: [address] [place] [address] Performed By: #### 2 777-1, , ####[facility] LABIA [id number] [place] [address] Urea nitrogen [Mass/Vol] 24 mg/dL High 7-21 [facility] Comment on above: Order Comment: Speci men Type: BLOOD SPECIMENOrdering Facility: [facility] Address: [address] [place] [address] Performed By: #### 2 777-1, , ####[facility] LABIA [id number] [place] [address] MAGNESIUMon 01-24-2025 Magnesium [Mass/Vol] 2.2 mg/dL 1.7 - 2.3 mg/dL [facility] Magnesium SerPl-mCncon 01-24 Magnesium [Mass/Vol] 2.2 mg/dL Normal 1.7-2.3 [facility] Comment on above: Order Comment: Speci men Type: BLOOD SPECIMENOrdering Facility: [facility] Address: [address] [place], [place] [address] [place] [address] Performed By: #### 2 777-1, 42162-6, 08347-9 ####[facility] LABCLIA [id number] [place] [address] Magnesium [Mass/Vol]on 01-24 Interpretation and review of laboratory results Normal [facility] PHOSPHORUS INORGANICon 01-24 Phosphate [Mass/Vol] 3.3 mg/dL 2.7 - 4.8 mg/dL [facility] Phosphate SerPl-mCncon 01-24 Phosphate [Mass/Vol] 3.3 mg/dL Normal 2.7-4.[address] [facility] Comment on above: Order Comment: Speci men Type: BLOOD SPECIMENOrdering Facility: [facility] Address: [address] [place] [address] Performed By: #### 2 777-1, , 98670-2 ####[facility] LABCLIA [id number] [place] [address] Phosphate [Mass/Vol]on 01-24 Interpretation and review of laboratory results Normal [facility] CBC panel Auto (Bld)on 01-16 Erythrocyte distribution width (RBC) [Ratio] 13.7 % 11.5 - 15.0 % [facility] Hematocrit (Bld) [Volume fraction] 34.1 % Low 36.0 - 46.0 % [facility] Hemoglobin (Bld) [Mass/Vol] 11.4 g/dL Low 11.5 - 15.5 g/dL [facility] Interpretation and review of laboratory results Abnormal [facility] MCH (RBC) [Entitic mass] 30 pg 26.0 - 34.0 pg [facility] MCHC (RBC) [Mass/Vol] 33.4 g/dL 30.5 - 36.0 g/dL [facility] MCV (RBC) [Entitic vol] 89.7 fL 80.0 - 100.0 fL [facility] Nucleated RBC (Bld) [#/Vol] NINF [facility] Platelet mean volume (Bld) [Entitic vol] 10 fL 9.0 - 12.7 fL [facility] Platelets (Bld) [#/Vol] 180 10*3/uL [facility] RBC (Bld) [#/Vol] 3.8 10*6/uL Low 3.90 - 5.20 m/uL [facility] WBC (Bld) [#/Vol] 5.99 10*3/uL [facility] Erythrocyte distribution width (RBC) [Ratio] 13.7 % Normal 11.5-15.0 [facility] Comment on above: Order Comment: Speci men Type: BLOOD SPECIMENOrdering Facility: [facility] Address: [address] [place] [address] Performed By: #### 5 8410-2 ####[facility] LABCLIA [id number] [place] [address] Hematocrit (Bld) [Volume fraction] 34.1 % Low 36.0-46.0 [facility] Comment on above: Order Comment: Speci men Type: BLOOD SPECIMENOrdering Facility: [facility] Address: [address] [place] [address] Performed By: #### 5 8410-2 ####[facility] LABCLIA [id number] [place] [address] Hemoglobin (Bld) [Mass/Vol] 11.4 g/dL Low 11.5-15.5 [facility] Comment on above: Order Comment: Speci men Type: BLOOD SPECIMENOrdering Facility: [facility] Address: [address] [place] [address] Performed By: #### 5 8410-2 ####[facility] LABCLIA [id number] [place] [address] MCH (RBC) [Entitic mass] 30.0 pg Normal 26.0-34.0 [facility] Comment on above: Order Comment: Speci men Type: BLOOD SPECIMENOrdering Facility: [facility] Address: [address] [place] [address] Performed By: #### 5 8410-2 ####[facility] LABCLIA [id number] [place] [address] MCHC (RBC) [Mass/Vol] 33.4 g/dL Normal 30.5-36.0 [facility] Comment on above: Order Comment: Speci men Type: BLOOD SPECIMENOrdering Facility: [facility] Address: [address] [place] [address] Performed By: #### 5 8410-2 ####[facility] LABCLIA [id number] [place] [address] MCV (RBC) [Entitic vol] 89.7 fL Normal 80.0-100.0 [facility] Comment on above: Order Comment: Speci men Type: BLOOD SPECIMENOrdering Facility: [facility] Address: [address] [place] [address] Performed By: #### 5 8410-2 ####[facility] LABIA [id number] [place] [address] Nucleated RBC (Bld) [#/Vol] 10*3/uL Normal <0.01 [facility] Comment on above: Order Comment: Speci men Type: BLOOD SPECIMENOrdering Facility: [facility] Address: [address] [place] [address] Performed By: #### 5 8410-2 ####[facility] LABCLIA [id number] [place] [address] Platelet mean volume (Bld) [Entitic vol] 10.0 fL Normal 9.0-12.7 [facility] Comment on above: Order Comment: Speci men Type: BLOOD SPECIMENOrdering Facility: [facility] Address: [address] [place] [address] Performed By: #### 5 8410-2 ####[facility] LABIA [id number] [place] [address] Platelets (Bld) [#/Vol] 180 10*3/uL Normal 150-400 [facility] Comment on above: Order Comment: Speci men Type: BLOOD SPECIMENOrdering Facility: [facility] Address: [address] [place] [address] Performed By: #### 5 8410-2 ####[facility] LABIA [id number] [place] [address] RBC (Bld) [#/Vol] 3.80 10*6/uL Low 3.90-5.20 [facility] Comment on above: Order Comment: Speci men Type: BLOOD SPECIMENOrdering Facility: [facility] Address: [address] [place] [address] Performed By: #### 5 8410-2 ####[facility] LABIA [id number] [place] [address] WBC (Bld) [#/Vol] 5.99 10*3/uL Normal 3.70-11.00 [facility] Comment on above: Order Comment: Speci men Type: BLOOD SPECIMENOrdering Facility: [facility] Address: [address] [place] [address] Performed By: #### 5 8410-2 ####[facility] LABIA [id number] [place] [address] Comprehensive metabolic 2000 panelOrdered By: Raheem Pozo on 01-16-2025 Albumin [Mass/Vol] 4 g/dL 3.9 - 4.9 g/dL [facility] ALP [Catalytic activity/Vol] 91 U/L 34 - 123 U/L [facility] ALT [Catalytic activity/Vol] 33 U/L 7 - 38 U/L [facility] Anion gap [Moles/Vol] 10 mmol/L 8 - 15 mmol/L [facility] AST [Catalytic activity/Vol] 21 U/L 13 - 35 U/L [facility] Bilirubin [Mass/Vol] 0.4 mg/dL 0.2 - 1.3 mg/dL [facility] Calcium [Mass/Vol] 9 mg/dL 8.5 - 10.2 mg/dL [facility] Chloride [Moles/Vol] 104 mmol/L 98 - 107 mmol/L [facility] CO2 [Moles/Vol] 24 mmol/L 22 - 30 mmol/L [facility] Creatinine [Mass/Vol] 0.5 mg/dL Low 0.58 - 0.96 mg/dL [facility] GFR/1.73 sq M.predicted among non-blacks MDRD (S/P/Bld) [Vol rate/Area] 124 mL/min/{1.73_m2} - PINF [facility] Comment on above: Estimated Glomerular Filtration Rate (eGFR) is calculated using the 2020 CKD-EPI creatinine equation. This equation utilizes serum creatinine, sex, and age as parameters. The creatinine assay has traceable calibration to isotope dilution-mass spectrometry. Refer to KDIGO guidelines for clinical interpretation. In patients with unstable renal function, e.g. those with acute kidney injury, the eGFR may not accurately reflect actual GFR. Glucose [Mass/Vol] 108 mg/dL High 74 - 99 mg/dL [facility] Comment on above: The [place] Diabete s Association (ADA) provides guidance for cutoff values for fasting glucose and random glucose. The ADA defines fasting as no caloric intake for at least 8 hours. Fasting plasma glucose results between 100 to 125 mg/dL indicate increased risk for diabetes (prediabetes). Fasting plasma glucose results greater than or equal to 126 mg/dL meet the criteria for diagnosis of diabetes. In the absence of unequivocal hyperglycemia, results should be confirmed by repeat testing. In a patient with classic symptoms of hyperglycemia or hyperglycemic crisis, random plasma glucose results greater than or equal to 200 mg/dL meet the criteria for diagnosis of diabetes. Reference: Standards of Medical Care in Diabetes 2016, [place] [employer]. Diabetes Care. 2016.39(Suppl 1). Interpretation and review of laboratory results Abnormal [facility] Potassium [Moles/Vol] 4.5 mmol/L 3.7 - 5.1 mmol/L [facility] Protein [Mass/Vol] 6.9 g/dL 6.3 - 8.0 g/dL [facility] Sodium [Moles/Vol] 138 mmol/L 136 - 144 mmol/L [facility] Urea nitrogen [Mass/Vol] 26 mg/dL High 7 - 21 mg/dL [facility] Comprehensive metabolic 2000 panelon 01-16-2025 Albumin [Mass/Vol] 4.0 g/dL Normal 3.9-4.9 [facility] Comment on above: Order Comment: Speci men Type: BLOOD SPECIMENOrdering Facility: [facility] Address: [address] [place] [address] Performed By: #### 1 9123-9, 66482-5, 2776- ####[facility] LABCLIA [id number] [place] [address] ALP [Catalytic activity/Vol] 91 U/L Normal 34-123 [facility] Comment on above: Order Comment: Speci men Type: BLOOD SPECIMENOrdering Facility: [facility] Address: [address] [place] [address] Performed By: #### 1 9123-9, 05300-9, 2776- ####[facility] LABIA [id number] [place] [address] ALT [Catalytic activity/Vol] 33 U/L Normal 7-38 [facility] Comment on above: Order Comment: Speci men Type: BLOOD SPECIMENOrdering Facility: [facility] Address: [address] [place], [place] [address] Performed By: #### 1 9123-9, 36721-4, 2776- ####[facility] LABIA [id number] [place] [address] Anion gap [Moles/Vol] 10 mmol/L Normal 8-15 [facility] Comment on above: Order Comment: Speci men Type: BLOOD SPECIMENOrdering Facility: [facility] Address: [address] [place], [place] [address] Performed By: #### 1 9123-9, 91210-9, 2776- ####[facility] LABIA [id number] [place] [address] AST [Catalytic activity/Vol] 21 U/L Normal 13-35 [facility] Comment on above: Order Comment: Speci men Type: BLOOD SPECIMENOrdering Facility: [facility] Address: [address] [place] [address] Performed By: #### 1 9123-9, 94837-4, 2776-07 ####[facility] LABCLIA [id number] [place] [address] Bilirubin [Mass/Vol] 0.4 mg/dL Normal 0.2-1.3 [facility] Comment on above: Order Comment: Speci men Type: BLOOD SPECIMENOrdering Facility: [facility] Address: [address] [place] [address] Performed By: #### 1 9123-9, 64836-0, 2776- ####[facility] LABCLIA [id number] [place] [address] Calcium [Mass/Vol] 9.0 mg/dL Normal 8.5-10.2 [facility] Comment on above: Order Comment: Speci men Type: BLOOD SPECIMENOrdering Facility: [facility] Address: [address] [place] [address] Performed By: #### 1 9123-9, , 2776-07 ####[facility] LABIA [id number] [place] [address] Chloride [Moles/Vol] 104 mmol/L Normal 98-107 [facility] Comment on above: Order Comment: Speci men Type: BLOOD SPECIMENOrdering Facility: [facility] Address: [address] [place] [address] Performed By: #### 1 9123-9, , 2776-07 ####[facility] LABCLIA [id number] [place] [address] CO2 [Moles/Vol] 24 mmol/L Normal 22-30 [facility] Comment on above: Order Comment: Speci men Type: BLOOD SPECIMENOrdering Facility: [facility] Address: [address] [place] [address] Performed By: #### 1 9123-9, 14781-4, 277- ####[facility] LABCLIA [id number] [place] [address] Creatinine [Mass/Vol] 0.50 mg/dL Low 0.58-0.96 [facility] Comment on above: Order Comment: Elfego pollock Type: BLOOD SPECIMENOrdering Facility: [facility] Address: [address] [place] [address] Performed By: #### 1 9123-9, 41317-2, 2777-1 ####[facility] LABCLIA [id number] [place] [address] eGFRcr SerPlBld CKD-EPI 2020 124 mL/min/1.73m??? Normal >=60 [facility] Comment on above: Order Comment: Elfego pollock Type: BLOOD SPECIMENOrdering Facility: [facility] Address: [address] [place] [address] Result Comment: Desiree mated Glomerular Filtration Rate (eGFR) is calculated using the 2020 CKD-EPI creatinine equation. This equation utilizes serum creatinine, sex, and age as parameters. The creatinine assay has traceable calibration to isotope dilution-mass spectrometry. Refer to KDIGO guidelines for clinical interpretation. In patients with unstable renal function, e.g. those with acute kidney injury, the eGFR may not accurately reflect actual GFR. Performed By: #### 1 9123-9, 57051-4, 2777-1 ####[facility] LABCLIA [id number] [place] [address] Glucose [Mass/Vol] 108 mg/dL High 74-99 [facility] Comment on above: Order Comment: Elfego pollock Type: BLOOD SPECIMENOrdering Facility: [facility] Address: [address] [place] [address] Result Comment: The [place] Diabetes Association (ADA) provides guidance for cutoff values for fasting glucose and random glucose. The ADA defines fasting as no caloric intake for at least 8 hours. Fasting plasma glucose results between 100 to 125 mg/dL indicate increased risk for diabetes (prediabetes).Fasting plasma glucose results greater than or equal to 126 mg/dL meet the criteria for diagnosis of diabetes. In the absence of unequivocal hyperglycemia, results should be confirmed by repeat testing. In a patient with classic symptoms of hyperglycemia or hyperglycemic crisis, random plasma glucose results greater than or equal to 200 mg/dL meet the criteria for diagnosis of diabetes.Reference: Standards of Medical Care in Diabetes 2016, [place] [employer]. Diabetes Care. 2016.39(Suppl 1). Performed By: #### 1 9123-9, 59528-7, 2776- ####[facility] LABCLIA [id number] [place] [address] Potassium [Moles/Vol] 4.5 mmol/L Normal 3.7-5.1 [facility] Comment on above: Order Comment: Speci men Type: BLOOD SPECIMENOrdering Facility: [facility] Address: [address] [place] [address] Performed By: #### 1 9123-9, , 2776-07 ####[facility] LABCLIA [id number] [place] [address] Protein [Mass/Vol] 6.9 g/dL Normal 6.3-8.0 [facility] Comment on above: Order Comment: Speci men Type: BLOOD SPECIMENOrdering Facility: [facility] Address: [address] [place] [address] Performed By: #### 1 9123-9, , 2776-07 ####[facility] LABCLIA [id number] [place] [address] Sodium [Moles/Vol] 138 mmol/L Normal 136-144 [facility] Comment on above: Order Comment: Speci men Type: BLOOD SPECIMENOrdering Facility: [facility] Address: [address] [place] [address] Performed By: #### 1 9123-9, 53339-8, 2776-07 ####[facility] LABCLIA [id number] [place] [address] Urea nitrogen [Mass/Vol] 26 mg/dL High 7-21 [facility] Comment on above: Order Comment: Speci men Type: BLOOD SPECIMENOrdering Facility: [facility] Address: [address] [facility] [place] [address] Performed By: #### 1 9123-9, 44713-0, 2777-1 ####[facility] LABCLIA [id number] [place] [address] MAGNESIUMon 01-16-2025 Magnesium [Mass/Vol] 2.2 mg/dL 1.7 - 2.3 mg/dL [facility] Magnesium SerPl-mCncon 01-16 Magnesium [Mass/Vol] 2.2 mg/dL Normal 1.7-2.3 [facility] Comment on above: Order Comment: Speci men Type: BLOOD SPECIMENOrdering Facility: [facility] Address: [facility] [address] [place] [id number] Performed By: #### 1 9123-9, 43259-8, 2777 ####[facility] LABCLIA [id number] [place] [address] Magnesium [Mass/Vol]on 01-16 Interpretation and review of laboratory results Normal [facility] PHOSPHORUS INORGANICon 01-16 Phosphate [Mass/Vol] 3.3 mg/dL 2.7 - 4.8 mg/dL [facility] Phosphate SerPl-mCncon 01-16 Phosphate [Mass/Vol] 3.3 mg/dL Normal 2.7-4.8 [facility] Comment on above: Order Comment: Speci men Type: BLOOD SPECIMENOrdering Facility: [facility] Address: [address] [place] [address] Performed By: #### 1 9123-9, 70458-6, 2777- ####[facility] LABCLIA [id number] [place] [address] Phosphate [Mass/Vol]on 01-16 Interpretation and review of laboratory results Normal [facility] CNPNon 01-10-2025 CNPN Normal [facility] CBC panel Auto (Bld)on 01-09 Erythrocyte distribution width (RBC) [Ratio] 13.8 % 11.5 - 15.0 % [facility] Hematocrit (Bld) [Volume fraction] 34.8 % Low 36.0 - 46.0 % [facility] Hemoglobin (Bld) [Mass/Vol] 11.7 g/dL 11.5 - 15.5 g/dL [facility] Interpretation and review of laboratory results Abnormal [facility] MCH (RBC) [Entitic mass] 29.6 pg 26.0 - 34.0 pg [facility] MCHC (RBC) [Mass/Vol] 33.6 g/dL 30.5 - 36.0 g/dL [facility] MCV (RBC) [Entitic vol] 88.1 fL 80.0 - 100.0 fL [facility] Nucleated RBC (Bld) [#/Vol] NINF [facility] Platelet mean volume (Bld) [Entitic vol] 11.3 fL 9.0 - 12.7 fL [facility] Platelets (Bld) [#/Vol] 220 10*3/uL [facility] RBC (Bld) [#/Vol] 3.95 10*6/uL 3.90 - 5.20 m/uL [facility] WBC (Bld) [#/Vol] 5.22 10*3/uL [facility] Erythrocyte distribution width (RBC) [Ratio] 13.8 % Normal 11.5-15.0 [facility] Comment on above: Order Comment: Speci men Type: BLOOD SPECIMENOrdering Facility: [facility] Address: [address] [place] [address] Performed By: #### 5 8410-2 ####[facility] [id number] [place] [address] [place] Hematocrit (Bld) [Volume fraction] 34.8 % Low 36.0-46.0 [facility] Comment on above: Order Comment: Speci men Type: BLOOD SPECIMENOrdering Facility: [facility] Address: [address] [place] [address] Performed By: #### 5 8410-2 ####[facility] [id number] [place] [address] [place] Hemoglobin (Bld) [Mass/Vol] 11.7 g/dL Normal 11.5-15.5 [facility] Comment on above: Order Comment: Speci men Type: BLOOD SPECIMENOrdering Facility: [facility] Address: [address] [place] [address] Performed By: #### 5 8410-2 ####[facility] [id number] [address] [place] MCH (RBC) [Entitic mass] 29.6 pg Normal 26.0-34.0 [facility] Comment on above: Order Comment: Speci men Type: BLOOD SPECIMENOrdering Facility: [facility] Address: [address] [place] [address] Performed By: #### 5 8410-2 ####[facility] [id number] [place] [address] [place] MCHC (RBC) [Mass/Vol] 33.6 g/dL Normal 30.5-36.0 [facility] Comment on above: Order Comment: Speci men Type: BLOOD SPECIMENOrdering Facility: [facility] Address: [address] [place] [address] Performed By: #### 5 8410-2 ####[facility] [id number] [place] [address] [place] MCV (RBC) [Entitic vol] 88.1 fL Normal 80.0-100.0 [facility] Comment on above: Order Comment: Speci men Type: BLOOD SPECIMENOrdering Facility: [facility] Address: [address] [place] [address] Performed By: #### 5 8410-2 ####[facility] [id number] [place] [address] [place] Nucleated RBC (Bld) [#/Vol] 10*3/uL Normal <0.01 [facility] Comment on above: Order Comment: Speci men Type: BLOOD SPECIMENOrdering Facility: [facility] Address: [address] [place] [address] Performed By: #### 5 8410-2 ####[facility] [id number] [place] [address] [place] Platelet mean volume (Bld) [Entitic vol] 11.3 fL Normal 9.0-12.7 [facility] Comment on above: Order Comment: Speci men Type: BLOOD SPECIMENOrdering Facility: [facility] Address: [address] [place] [address] Performed By: #### 5 8410-2 ####[facility] [id number] [place] [address] [place] Platelets (Bld) [#/Vol] 220 10*3/uL Normal 150-400 [facility] Comment on above: Order Comment: Speci men Type: BLOOD SPECIMENOrdering Facility: [facility] Address: [address] [place] [address] Performed By: #### 5 8410-2 ####[facility] [id number] [place] [address] [place] RBC (Bld) [#/Vol] 3.95 10*6/uL Normal 3.90-5.20 [facility] Comment on above: Order Comment: Speci men Type: BLOOD SPECIMENOrdering Facility: [facility] Address: [address] [place] [address] Performed By: #### 5 8410-2 ####[facility] [id number] [place] [address] [place] WBC (Bld) [#/Vol] 5.22 10*3/uL Normal 3.70-11.00 [facility] Comment on above: Order Comment: Speci men Type: BLOOD SPECIMENOrdering Facility: [facility] Address: [address] [place] [address] Performed By: #### 5 8410-2 ####[facility] [id number] [place] [id number] [place] CNCNPATEDon 01-09-2025 CNCNPATED Normal [facility] CNOVon 01-09-2025 CNOV Normal [facility] Comprehensive metabolic 2000 panelon 01-09-2025 Albumin [Mass/Vol] 4 g/dL 3.9 - 4.9 g/dL [facility] ALP [Catalytic activity/Vol] 111 U/L 34 - 123 U/L [facility] ALT [Catalytic activity/Vol] 41 U/L High 7 - 38 U/L [facility] Anion gap [Moles/Vol] 12 mmol/L 8 - 15 mmol/L [facility] AST [Catalytic activity/Vol] 28 U/L 13 - 35 U/L [facility] Bilirubin [Mass/Vol] 0.4 mg/dL 0.2 - 1.3 mg/dL [facility] Calcium [Mass/Vol] 9.1 mg/dL 8.5 - 10.2 mg/dL [facility] Chloride [Moles/Vol] 103 mmol/L 98 - 107 mmol/L [facility] CO2 [Moles/Vol] 22 mmol/L 22 - 30 mmol/L [facility] Creatinine [Mass/Vol] 0.52 mg/dL Low 0.58 - 0.96 mg/dL [facility] GFR/1.73 sq M.predicted among non-blacks MDRD (S/P/Bld) [Vol rate/Area] 123 mL/min/{1.73_m2} - PINF [facility] Comment on above: Estimated Glomerular Filtration Rate (eGFR) is calculated using the 2020 CKD-EPI creatinine equation. This equation utilizes serum creatinine, sex, and age as parameters. The creatinine assay has traceable calibration to isotope dilution-mass spectrometry. Refer to KDIGO guidelines for clinical interpretation. In patients with unstable renal function, e.g. those with acute kidney injury, the eGFR may not accurately reflect actual GFR. Glucose [Mass/Vol] 104 mg/dL High 74 - 99 mg/dL [facility] Comment on above: The [place] Diab[employer] s Association (ADA) provides guidance for cutoff values for fasting glucose and random glucose. The ADA defines fasting as no caloric intake for at least 8 hours. Fasting plasma glucose results between 100 to 125 mg/dL indicate increased risk for diabetes (prediabetes). Fasting plasma glucose results greater than or equal to 126 mg/dL meet the criteria for diagnosis of diabetes. In the absence of unequivocal hyperglycemia, results should be confirmed by repeat testing. In a patient with classic symptoms of hyperglycemia or hyperglycemic crisis, random plasma glucose results greater than or equal to 200 mg/dL meet the criteria for diagnosis of diabetes. Reference: Standards of Medical Care in Diabetes 2016, [employer] Diabetes Association. Diabetes Care. 2016.39(Suppl 1). Interpretation and review of laboratory results Abnormal [facility] Potassium [Moles/Vol] 4.6 mmol/L 3.7 - 5.1 mmol/L [facility] Protein [Mass/Vol] 7.3 g/dL 6.3 - 8.0 g/dL [facility] Sodium [Moles/Vol] 137 mmol/L 136 - 144 mmol/L [facility] Urea nitrogen [Mass/Vol] 22 mg/dL High 7 - 21 mg/dL [facility] Albumin [Mass/Vol] 4.0 g/dL Normal 3.9-4.9 [facility] Comment on above: Order Comment: Speci men Type: BLOOD SPECIMENOrdering Facility: [facility] Address: [address] [place] [address] Performed By: #### 1 9123-9, 24335-3, 2777-1 ####[facility] [id number] [place] [address] [place] ALP [Catalytic activity/Vol] 111 U/L Normal 34-123 [facility] Comment on above: Order Comment: Speci men Type: BLOOD SPECIMENOrdering Facility: [facility] Address: [address] [place] [address] Performed By: #### 1 9123-9, 31295-6, 2777-1 ####[facility] [id number] [place] [address] [place] ALT [Catalytic activity/Vol] 41 U/L High 7-38 [facility] Comment on above: Order Comment: Speci men Type: BLOOD SPECIMENOrdering Facility: [facility] Address: [address] [place] [address] Performed By: #### 1 9123-9, 33807-9, 2777-1 ####[facility] [id number] [place] [address] [place] Anion gap [Moles/Vol] 12 mmol/L Normal 8-15 [facility] Comment on above: Order Comment: Speci men Type: BLOOD SPECIMENOrdering Facility: [facility] Address: [address] [place] [address] Performed By: #### 1 9123-9, 99997-2, 2777-1 ####[facility] [id number] [place] [address] [place] AST [Catalytic activity/Vol] 28 U/L Normal 13-35 [facility] Comment on above: Order Comment: Speci men Type: BLOOD SPECIMENOrdering Facility: [facility] Address: [address] [place] [address] Performed By: #### 1 9123-9, 08733-3, 277-1 ####[facility] [id number] [place] [address] [place] Bilirubin [Mass/Vol] 0.4 mg/dL Normal 0.2-1.3 [facility] Comment on above: Order Comment: Speci men Type: BLOOD SPECIMENOrdering Facility: [facility] Address: [address] [place] [address] Performed By: #### 1 9123-9, 10081-2, 277-1 ####[facility] [id number] [place] [address] [place] Calcium [Mass/Vol] 9.1 mg/dL Normal 8.5-10.2 [facility] Comment on above: Order Comment: Speci men Type: BLOOD SPECIMENOrdering Facility: [facility] Address: [address] [place] [address] Performed By: #### 1 9123-9, 83297-8, 2777-1 ####[facility] [id number] [place] [address] [place] Chloride [Moles/Vol] 103 mmol/L Normal 98-107 [facility] Comment on above: Order Comment: Speci men Type: BLOOD SPECIMENOrdering Facility: [facility] Address: [address] [place] [address] Performed By: #### 1 9123-9, 48959-7, 2777-1 ####[facility] [id number] [place] [address] [place] CO2 [Moles/Vol] 22 mmol/L Normal 22-30 [facility] Comment on above: Order Comment: Speci men Type: BLOOD SPECIMENOrdering Facility: [facility] Address: [address] [place] [address] Performed By: #### 1 9123-9, 38846-6, 2777-1 ####[facility] [id number] [place] [address] [place] Creatinine [Mass/Vol] 0.52 mg/dL Low 0.58-0.96 [facility] Comment on above: Order Comment: Speci men Type: BLOOD SPECIMENOrdering Facility: [facility] Address: [address] [place] [address] Performed By: #### 1 9123-9, 88015-7, 2777-1 ####[facility] [id number] [place] [address] [place] Creatinine and Glomerular filtration rate.predicted panel (S/P/Bld) 123 mL/min/1.73m??? Normal >=60 [facility] Comment on above: Order Comment: Speci men Type: BLOOD SPECIMENOrdering Facility: [facility] Address: [address] [place] [address] Result Comment: Desiree mated Glomerular Filtration Rate (eGFR) is calculated using the 2020 CKD-EPI creatinine equation. This equation utilizes serum creatinine, sex, and age as parameters. The creatinine assay has traceable calibration to isotope dilution-mass spectrometry. Refer to KDIGO guidelines for clinical interpretation. In patients with unstable renal function, e.g. those with acute kidney injury, the eGFR may not accurately reflect actual GFR. Performed By: #### 1 9123-9, 16863-7, 2776- ####[facility] [id number] [place] [address] [place] Glucose [Mass/Vol] 104 mg/dL High 74-99 [facility] Comment on above: Order Comment: Elfego pollock Type: BLOOD SPECIMENOrdering Facility: [facility] Address: [address] [place] [address] Result Comment: The [place] Diabetes Association (ADA) provides guidance for cutoff values for fasting glucose and random glucose. The ADA defines fasting as no caloric intake for at least 8 hours. Fasting plasma glucose results between 100 to 125 mg/dL indicate increased risk for diabetes (prediabetes).Fasting plasma glucose results greater than or equal to 126 mg/dL meet the criteria for diagnosis of diabetes. In the absence of unequivocal hyperglycemia, results should be confirmed by repeat testing. In a patient with classic symptoms of hyperglycemia or hyperglycemic crisis, random plasma glucose results greater than or equal to 200 mg/dL meet the criteria for diagnosis of diabetes.Reference: Standards of Medical Care in Diabetes 2016, [employer] Diabetes Association. Diabetes Care. 2016.39(Suppl 1). Performed By: #### 1 9123-9, , 2776-07 ####[facility] [id number] [place] [address] [place] Potassium [Moles/Vol] 4.6 mmol/L Normal 3.7-5.1 [facility] Comment on above: Order Comment: Elfego pollock Type: BLOOD SPECIMENOrdering Facility: [facility] Address: [address] [place] [address] Performed By: #### 1 9123-9, 33033-0, 2776- ####[facility] [id number] [place] [address] [place] Protein [Mass/Vol] 7.3 g/dL Normal 6.3-8.0 [facility] Comment on above: Order Comment: Speci men Type: BLOOD SPECIMENOrdering Facility: [facility] Address: [address] [place] [address] Performed By: #### 1 9123-9, 14663-0, 2777-1 ####[facility] [id number] [place] [address] [place] Sodium [Moles/Vol] 137 mmol/L Normal 136-144 [facility] Comment on above: Order Comment: Speci men Type: BLOOD SPECIMENOrdering Facility: [facility] Address: [address] [place] [address] Performed By: #### 1 9123-9, 29607-3, 2777-1 ####[facility] [id number] [place] [address] [place] Urea nitrogen [Mass/Vol] 22 mg/dL High 7-21 [facility] Comment on above: Order Comment: Speci men Type: BLOOD SPECIMENOrdering Facility: [facility] Address: [address] [place] [address] Performed By: #### 1 9123-9, 09930-2, 2777-1 ####[facility] [id number] [place] [address] [place] MAGNESIUMon 01-09-2025 Magnesium [Mass/Vol] 2.1 mg/dL 1.7 - 2.3 mg/dL [facility] Magnesium SerPl-mCncon 01-09 Magnesium [Mass/Vol] 2.1 mg/dL Normal 1.7-2.3 [facility] Comment on above: Order Comment: Speci men Type: BLOOD SPECIMENOrdering Facility: [facility] Address: [address] [place] [address] Performed By: #### 1 9123-9, 47553-6, 2777-1 ####[facility] [id number] [address] [facility] No Panel Informationon 01-09 Interpretation and review of laboratory results Normal [facility] PHOSPHORUS INORGANICon 01-09 Phosphate [Mass/Vol] 3.2 mg/dL 2.7 - 4.8 mg/dL [facility] Phosphate SerPl-mCncon 01-09 Phosphate [Mass/Vol] 3.2 mg/dL Normal 2.7-4.[address] [facility] Comment on above: Order Comment: Speci men Type: BLOOD SPECIMENOrdering Facility: [facility] Address: [address] [place] [address] Performed By: #### 1 9123-9, 26311-4, 2777-1 ####[facility] [id number] [address] [facility] CBC panel Auto (Bld)on 01-02 Erythrocyte distribution width (RBC) [Ratio] 13.4 % 11.5 - 15.0 % [facility] Hematocrit (Bld) [Volume fraction] 34.2 % Low 36.0 - 46.0 % [facility] Hemoglobin (Bld) [Mass/Vol] 11.6 g/dL 11.5 - 15.5 g/dL [facility] Interpretation and review of laboratory results Abnormal [facility] MCH (RBC) [Entitic mass] 29.5 pg 26.0 - 34.0 pg [facility] MCHC (RBC) [Mass/Vol] 33.9 g/dL 30.5 - 36.0 g/dL [facility] MCV (RBC) [Entitic vol] 87 fL 80.0 - 100.0 fL [facility] Nucleated RBC (Bld) [#/Vol] NINF [facility] Platelet mean volume (Bld) [Entitic vol] 10.3 fL 9.0 - 12.7 fL [facility] Platelets (Bld) [#/Vol] 182 10*3/uL [facility] RBC (Bld) [#/Vol] 3.93 10*6/uL 3.90 - 5.20 m/uL [facility] WBC (Bld) [#/Vol] 5.5 10*3/uL [facility] Erythrocyte distribution width (RBC) [Ratio] 13.4 % Normal 11.5-15.0 [facility] Comment on above: Order Comment: Speci men Type: BLOOD SPECIMENOrdering Facility: [facility] Address: [address] [place] [address] Performed By: #### 5 8410-2 ####[facility] LABCLIA [id number] [place] [address] Hematocrit (Bld) [Volume fraction] 34.2 % Low 36.0-46.0 [facility] Comment on above: Order Comment: Speci men Type: BLOOD SPECIMENOrdering Facility: [facility] Address: [address] [place] [address] Performed By: #### 5 8410-2 ####[facility] LABCLIA [id number] [place] [address] Hemoglobin (Bld) [Mass/Vol] 11.6 g/dL Normal 11.5-15.5 [facility] Comment on above: Order Comment: Speci men Type: BLOOD SPECIMENOrdering Facility: [facility] Address: [address] [place] [address] Performed By: #### 5 8410-2 ####[facility] LABCLIA [id number] [place] [address] MCH (RBC) [Entitic mass] 29.5 pg Normal 26.0-34.0 [facility] Comment on above: Order Comment: Speci men Type: BLOOD SPECIMENOrdering Facility: [facility] Address: [address] [place] [address] Performed By: #### 5 8410-2 ####[facility] LABCLIA [id number] [place] [address] MCHC (RBC) [Mass/Vol] 33.9 g/dL Normal 30.5-36.0 [facility] Comment on above: Order Comment: Speci men Type: BLOOD SPECIMENOrdering Facility: [facility] Address: [address] [place] [address] Performed By: #### 5 8410-2 ####[facility] LABCLIA [id number] [place] [address] MCV (RBC) [Entitic vol] 87.0 fL Normal 80.0-100.0 [facility] Comment on above: Order Comment: Speci men Type: BLOOD SPECIMENOrdering Facility: [facility] Address: [address] [place] [address] Performed By: #### 5 8410-2 ####[facility] LABIA [id number] [place] [address] Nucleated RBC (Bld) [#/Vol] 10*3/uL Normal <0.01 [facility] Comment on above: Order Comment: Speci men Type: BLOOD SPECIMENOrdering Facility: [facility] Address: [address] [place] [address] Performed By: #### 5 8410-2 ####[facility] LABIA [id number] [place] [address] Platelet mean volume (Bld) [Entitic vol] 10.3 fL Normal 9.0-12.7 [facility] Comment on above: Order Comment: Speci men Type: BLOOD SPECIMENOrdering Facility: [facility] Address: [address] [place] [address] Performed By: #### 5 8410-2 ####[facility] LABCLIA [id number] [place] [address] Platelets (Bld) [#/Vol] 182 10*3/uL Normal 150-400 [facility] Comment on above: Order Comment: Speci men Type: BLOOD SPECIMENOrdering Facility: [facility] Address: [address] [place] [address] Performed By: #### 5 8410-2 ####[facility] LABCLIA [id number] [place] [address] RBC (Bld) [#/Vol] 3.93 10*6/uL Normal 3.90-5.20 [facility] Comment on above: Order Comment: Speci men Type: BLOOD SPECIMENOrdering Facility: [facility] Address: [address] [place] [address] Performed By: #### 5 8410-2 ####[facility] LABCLIA [id number] [place] [address] WBC (Bld) [#/Vol] 5.50 10*3/uL Normal 3.70-11.00 [facility] Comment on above: Order Comment: Speci men Type: BLOOD SPECIMENOrdering Facility: [facility] Address: [address] [place] [address] Performed By: #### 5 8410-2 ####[facility] LABCLIA [id number] [place] [address] Comprehensive metabolic 2000 panelOrdered By: Dona Crowder on 01-02-2025 Albumin [Mass/Vol] 4 g/dL 3.9 - 4.9 g/dL [facility] ALP [Catalytic activity/Vol] 103 U/L 34 - 123 U/L [facility] ALT [Catalytic activity/Vol] 29 U/L 7 - 38 U/L [facility] Anion gap [Moles/Vol] 10 mmol/L 8 - 15 mmol/L [facility] AST [Catalytic activity/Vol] 19 U/L 13 - 35 U/L [facility] Bilirubin [Mass/Vol] 0.5 mg/dL 0.2 - 1.3 mg/dL [facility] Calcium [Mass/Vol] 9.6 mg/dL 8.5 - 10.2 mg/dL [facility] Chloride [Moles/Vol] 100 mmol/L 98 - 107 mmol/L [facility] CO2 [Moles/Vol] 26 mmol/L 22 - 30 mmol/L [facility] Creatinine [Mass/Vol] 0.54 mg/dL Low 0.58 - 0.96 mg/dL [facility] GFR/1.73 sq M.predicted among non-blacks MDRD (S/P/Bld) [Vol rate/Area] 122 mL/min/{1.73_m2} - PINF [facility] Comment on above: Estimated Glomerular Filtration Rate (eGFR) is calculated using the 202 CKD-EPI creatinine equation. This equation utilizes serum creatinine, sex, and age as parameters. The creatinine assay has traceable calibration to isotope dilution-mass spectrometry. Refer to KDIGO guidelines for clinical interpretation. In patients with unstable renal function, e.g. those with acute kidney injury, the eGFR may not accurately reflect actual GFR. Glucose [Mass/Vol] 114 mg/dL High 74 - 99 mg/dL [facility] Comment on above: The [place] Diabete s Association (ADA) provides guidance for cutoff values for fasting glucose and random glucose. The ADA defines fasting as no caloric intake for at least 8 hours. Fasting plasma glucose results between 100 to 125 mg/dL indicate increased risk for diabetes (prediabetes). Fasting plasma glucose results greater than or equal to 126 mg/dL meet the criteria for diagnosis of diabetes. In the absence of unequivocal hyperglycemia, results should be confirmed by repeat testing. In a patient with classic symptoms of hyperglycemia or hyperglycemic crisis, random plasma glucose results greater than or equal to 200 mg/dL meet the criteria for diagnosis of diabetes. Reference: Standards of Medical Care in Diabetes 2016, [place] Diabetes Association. Diabetes Care. 2016.39(Suppl 1). Interpretation and review of laboratory results Abnormal [facility] Potassium [Moles/Vol] 4.3 mmol/L 3.7 - 5.1 mmol/L [facility] Protein [Mass/Vol] 7.1 g/dL 6.3 - 8.0 g/dL Cl [facility] Sodium [Moles/Vol] 136 mmol/L 136 - 144 mmol/L [facility] Urea nitrogen [Mass/Vol] 27 mg/dL High 7 - 21 mg/dL [facility] Comprehensive metabolic 2000 panelon 01-02-2025 Albumin [Mass/Vol] 4.0 g/dL Normal 3.9-4.9 [facility] Comment on above: Order Comment: Speci men Type: BLOOD SPECIMENOrdering Facility: [facility] Address: [facility] [place] [address] Performed By: #### 2 777-1, , ####[facility] LABCLIA [id number] [place] [address] ALP [Catalytic activity/Vol] 103 U/L Normal 34-123 [facility] Comment on above: Order Comment: Speci men Type: BLOOD SPECIMENOrdering Facility: [facility] Address: [address] [place] [address] Performed By: #### 2 777-1, , ####[facility] LABCLIA [id number] [place] [address] ALT [Catalytic activity/Vol] 29 U/L Normal 7-38 [facility] Comment on above: Order Comment: Speci men Type: BLOOD SPECIMENOrdering Facility: [facility] Address: [address] [place] [address] Performed By: #### 2 777-1, , ####[facility] LABCLIA [id number] [place] [address] Anion gap [Moles/Vol] 10 mmol/L Normal 8-15 [facility] Comment on above: Order Comment: Speci men Type: BLOOD SPECIMENOrdering Facility: [facility] Address: [address] [place] [address] Performed By: #### 2 777-1, , ####[facility] LABCLIA [id number] [place] [address] AST [Catalytic activity/Vol] 19 U/L Normal 13-35 [facility] Comment on above: Order Comment: Speci men Type: BLOOD SPECIMENOrdering Facility: [facility] Address: [address] [place], [place] [address] Performed By: #### 2 777-1, , ####[facility] LABCLIA [id number] [place] [address] Bilirubin [Mass/Vol] 0.5 mg/dL Normal 0.2-1.3 [facility] Comment on above: Order Comment: Speci men Type: BLOOD SPECIMENOrdering Facility: [facility] Address: [address] [place] [address] Performed By: #### 2 777-1, , ####[facility] LABCLIA [id number] [place] [address] Calcium [Mass/Vol] 9.6 mg/dL Normal 8.5-10.2 [facility] Comment on above: Order Comment: Speci men Type: BLOOD SPECIMENOrdering Facility: [facility] Address: [address] [place] [address] Performed By: #### 2 777-1, , ####[facility] LABCLIA [id number] [place] [address] Chloride [Moles/Vol] 100 mmol/L Normal 98-107 [facility] Comment on above: Order Comment: Speci men Type: BLOOD SPECIMENOrdering Facility: [facility] Address: [address] [place] [address] Performed By: #### 2 777-1, , ####[facility] LABCLIA [id number] [place] [address] CO2 [Moles/Vol] 26 mmol/L Normal 22-30 [facility] Comment on above: Order Comment: Speci men Type: BLOOD SPECIMENOrdering Facility: [facility] Address: [address] [place] [address] Performed By: #### 2 777-1, , ####[facility] LABCLIA [id number] [place] [address] Creatinine [Mass/Vol] 0.54 mg/dL Low 0.58-0.96 [facility] Comment on above: Order Comment: Speci men Type: BLOOD SPECIMENOrdering Facility: [facility] Address: [address] [place] [address] Performed By: #### 2 777-1, 14440-3, ####[facility] LABCLIA [id number] [place] [address] Creatinine and Glomerular filtration rate.predicted panel (S/P/Bld) 122 mL/min/1.73m??? Normal >=60 [facility] Comment on above: Order Comment: Elfego pollock Type: BLOOD SPECIMENOrdering Facility: [facility] Address: [address] [place] [id number] Result Comment: Desiree mated Glomerular Filtration Rate (eGFR) is calculated using the 2020 CKD-EPI creatinine equation. This equation utilizes serum creatinine, sex, and age as parameters. The creatinine assay has traceable calibration to isotope dilution-mass spectrometry. Refer to KDIGO guidelines for clinical interpretation. In patients with unstable renal function, e.g. those with acute kidney injury, the eGFR may not accurately reflect actual GFR. Performed By: #### 2 777-1, 74111-5, ####[facility] LABCLIA [id number] [place] [address] Glucose [Mass/Vol] 114 mg/dL High 74-99 [facility] Comment on above: Order Comment: Elfego pollock Type: BLOOD SPECIMENOrdering Facility: [facility] Address: [address] [place], [place] [address] Result Comment: The [place] Diabetes Association (ADA) provides guidance for cutoff values for fasting glucose and random glucose. The ADA defines fasting as no caloric intake for at least 8 hours. Fasting plasma glucose results between 100 to 125 mg/dL indicate increased risk for diabetes (prediabetes).Fasting plasma glucose results greater than or equal to 126 mg/dL meet the criteria for diagnosis of diabetes. In the absence of unequivocal hyperglycemia, results should be confirmed by repeat testing. In a patient with classic symptoms of hyperglycemia or hyperglycemic crisis, random plasma glucose results greater than or equal to 200 mg/dL meet the criteria for diagnosis of diabetes.Reference: Standards of Medical Care in Diabetes 2016, [place] Diabetes [employer]. Diabetes Care. 2016.39(Suppl 1). Performed By: #### 2 777-1, 06115-9, ####[facility] LABCLIA [id number] [place] [address] Potassium [Moles/Vol] 4.3 mmol/L Normal 3.7-5.1 [facility] Comment on above: Order Comment: Speci men Type: BLOOD SPECIMENOrdering Facility: [facility] Address: [address] [place] [address] Performed By: #### 2 777-1, 70096-0, ####[facility] LABCLIA [id number] [place] [address] Protein [Mass/Vol] 7.1 g/dL Normal 6.3-8.0 [facility] Comment on above: Order Comment: Speci men Type: BLOOD SPECIMENOrdering Facility: [facility] Address: [address] [place] [address] Performed By: #### 2 777-1, , ####[facility] LABCLIA [id number] [place] [address] Sodium [Moles/Vol] 136 mmol/L Normal 136-144 [facility] Comment on above: Order Comment: Speci men Type: BLOOD SPECIMENOrdering Facility: [facility] Address: [address] [place] [address] Performed By: #### 2 777-1, , ####[facility] LABCLIA [id number] [place] [address] Urea nitrogen [Mass/Vol] 27 mg/dL High 7-21 [facility] Comment on above: Order Comment: Speci men Type: BLOOD SPECIMENOrdering Facility: [facility] Address: [address] [place] [address] Performed By: #### 2 777-1, 23751-0, ####[facility] LABCLIA [id number] [place] [address] MAGNESIUMon 01-02-2025 Magnesium [Mass/Vol] 2.1 mg/dL 1.7 - 2.3 mg/dL [facility] [facility] Magnesium SerPl-mCncon 01-02 Magnesium [Mass/Vol] 2.1 mg/dL Normal 1.7-2.3 [facility] Comment on above: Order Comment: Speci men Type: BLOOD SPECIMENOrdering Facility: [facility] Address: [address] [place], [place] [address] Performed By: #### 2 777-1, 82356-4, ####[facility] LABCLIA [id number] [place] [address] Magnesium [Mass/Vol]on 01-02 Interpretation and review of laboratory results Normal [facility] PHOSPHORUS INORGANICon 01-02 Phosphate [Mass/Vol] 3.5 mg/dL 2.7 - 4.8 mg/dL [facility] Phosphate SerPl-mCncon 01-02 Phosphate [Mass/Vol] 3.5 mg/dL Normal 2.7-4.8 [facility] Comment on above: Order Comment: Speci men Type: BLOOD SPECIMENOrdering Facility: [facility] Address: [address] [place] [address] Performed By: #### 2 777-1, 74105-2, ####[facility] LABCLIA [id number] [place] [address] Phosphate [Mass/Vol]on 01-02 Interpretation and review of laboratory results Normal [facility] CNPNon 01-01-2025 CNPN Normal [facility] C-REACTIVE PROTEINon 025 CRP [Mass/Vol] mg/dL NINF - 0.9 mg/dL [facility] CBC panel Auto (Bld)on 12-29 Erythrocyte distribution width (RBC) [Ratio] 13.5 % 11.5 - 15.0 % [facility] Hematocrit (Bld) [Volume fraction] 36 % 36.0 - 46.0 % [facility] Hemoglobin (Bld) [Mass/Vol] 12.2 g/dL 11.5 - 15.5 g/dL [facility] Interpretation and review of laboratory results Normal [facility] MCH (RBC) [Entitic mass] 29.5 pg 26.0 - 34.0 pg [facility] MCHC (RBC) [Mass/Vol] 33.9 g/dL 30.5 - 36.0 g/dL [facility] MCV (RBC) [Entitic vol] 87 fL 80.0 - 100.0 fL [facility] Nucleated RBC (Bld) [#/Vol] NINF [facility] Platelet mean volume (Bld) [Entitic vol] 11 fL 9.0 - 12.7 fL [facility] Platelets (Bld) [#/Vol] 200 10*3/uL [facility] RBC (Bld) [#/Vol] 4.14 10*6/uL 3.90 - 5.20 m/uL [facility] WBC (Bld) [#/Vol] 6.38 10*3/uL [facility] Erythrocyte distribution width (RBC) [Ratio] 13.5 % Normal 11.5-15.0 [facility] Comment on above: Order Comment: Speci men Type: BLOOD SPECIMENOrdering Facility: [facility] Address: [address] [place] [address] Performed By: #### 5 8410-2 ####[facility] [id number] [place] [address] [place] Hematocrit (Bld) [Volume fraction] 36.0 % Normal 36.0-46.0 [facility] Comment on above: Order Comment: Speci men Type: BLOOD SPECIMENOrdering Facility: [facility] Address: [address] [place] [address] Performed By: #### 5 8410-2 ####[facility] [id number] [place] [address] [place] Hemoglobin (Bld) [Mass/Vol] 12.2 g/dL Normal 11.5-15.5 [facility] Comment on above: Order Comment: Speci men Type: BLOOD SPECIMENOrdering Facility: [facility] Address: [address] [place] [address] Performed By: #### 5 8410-2 ####[facility] [id number] [address] [place] MCH (RBC) [Entitic mass] 29.5 pg Normal 26.0-34.0 [facility] Comment on above: Order Comment: Speci men Type: BLOOD SPECIMENOrdering Facility: [facility] Address: [address] [place] [address] Performed By: #### 5 8410-2 ####[facility] [place] [id number] [place] [address] [place] MCHC (RBC) [Mass/Vol] 33.9 g/dL Normal 30.5-36.0 [facility] Comment on above: Order Comment: Speci men Type: BLOOD SPECIMENOrdering Facility: [facility] Address: [address] [place] [address] Performed By: #### 5 8410-2 ####[facility] [id number] [place] [address] [place] MCV (RBC) [Entitic vol] 87.0 fL Normal 80.0-100.0 [facility] Comment on above: Order Comment: Speci men Type: BLOOD SPECIMENOrdering Facility: [facility] Address: [address] [place] [address] Performed By: #### 5 8410-2 ####[facility] [id number] [place] [address] [place] Nucleated RBC (Bld) [#/Vol] 10*3/uL Normal <0.01 [facility] Comment on above: Order Comment: Speci men Type: BLOOD SPECIMENOrdering Facility: [facility] Address: [address] [place] [address] Performed By: #### 5 8410-2 ####[facility] [id number] [place] [address] [place] Platelet mean volume (Bld) [Entitic vol] 11.0 fL Normal 9.0-12.7 [facility] Comment on above: Order Comment: Speci men Type: BLOOD SPECIMENOrdering Facility: [facility] Address: [address] [place] [address] Performed By: #### 5 8410-2 ####[facility] [id number] [place] [address] [place] Platelets (Bld) [#/Vol] 200 10*3/uL Normal 150-400 [facility] Comment on above: Order Comment: Speci men Type: BLOOD SPECIMENOrdering Facility: [facility] Address: [address] [place] [address] Performed By: #### 5 8410-2 ####[facility] [id number] [place] [address] [place] RBC (Bld) [#/Vol] 4.14 10*6/uL Normal 3.90-5.20 [facility] Comment on above: Order Comment: Speci men Type: BLOOD SPECIMENOrdering Facility: [facility] Address: [address] [place] [address] Performed By: #### 5 8410-2 ####[facility] [id number] [place] [address] [place] WBC (Bld) [#/Vol] 6.38 10*3/uL Normal 3.70-11.00 [facility] Comment on above: Order Comment: Speci men Type: BLOOD SPECIMENOrdering Facility: [facility] Address: [address] [place] [address] Performed By: #### 5 8410-2 ####[facility] [id number] [address] [place] [address] [place] CNOVon 12-29-2024 CNOV Normal [facility] CNPNon 12-29-2024 CNPN Normal [facility] CRP SerPl-mCncon 12-29-2024 CRP [Mass/Vol] mg/L Normal <0.9 [facility] Comment on above: Order Comment: Speci men Type: BLOOD SPECIMENOrdering Facility: [facility] Address: [address] [place] [address] Performed By: #### 1 988-5 ####[facility] LABCLIA [id number] [address] [place] CRP [Mass/Vol]on 12-29-2024 Interpretation and review of laboratory results Normal [facility] Comprehensive metabolic 2000 panelon 12-29-2024 Albumin [Mass/Vol] 4 g/dL 3.9 - 4.9 g/dL [facility] ALP [Catalytic activity/Vol] 120 U/L 34 - 123 U/L [facility] ALT [Catalytic activity/Vol] 46 U/L High 7 - 38 U/L [facility] Anion gap [Moles/Vol] 12 mmol/L 8 - 15 mmol/L [facility] AST [Catalytic activity/Vol] 37 U/L High 13 - 35 U/L [facility] Bilirubin [Mass/Vol] 0.5 mg/dL 0.2 - 1.3 mg/dL [facility] Calcium [Mass/Vol] 9.1 mg/dL 8.5 - 10.2 mg/dL [facility] Chloride [Moles/Vol] 101 mmol/L 98 - 107 mmol/L [facility] CO2 [Moles/Vol] 24 mmol/L 22 - 30 mmol/L [facility] Creatinine [Mass/Vol] 0.53 mg/dL Low 0.58 - 0.96 mg/dL [facility] GFR/1.73 sq M.predicted among non-blacks MDRD (S/P/Bld) [Vol rate/Area] 122 mL/min/{1.73_m2} - PINF [facility] Comment on above: Estimated Glomerular Filtration Rate (eGFR) is calculated using the 2020 CKD-EPI creatinine equation. This equation utilizes serum creatinine, sex, and age as parameters. The creatinine assay has traceable calibration to isotope dilution-mass spectrometry. Refer to KDIGO guidelines for clinical interpretation. In patients with unstable renal function, e.g. those with acute kidney injury, the eGFR may not accurately reflect actual GFR. Glucose [Mass/Vol] 104 mg/dL High 74 - 99 mg/dL [facility] Comment on above: The [place] Diabete s Association (ADA) provides guidance for cutoff values for fasting glucose and random glucose. The ADA defines fasting as no caloric intake for at least 8 hours. Fasting plasma glucose results between 100 to 125 mg/dL indicate increased risk for diabetes (prediabetes). Fasting plasma glucose results greater than or equal to 126 mg/dL meet the criteria for diagnosis of diabetes. In the absence of unequivocal hyperglycemia, results should be confirmed by repeat testing. In a patient with classic symptoms of hyperglycemia or hyperglycemic crisis, random plasma glucose results greater than or equal to 200 mg/dL meet the criteria for diagnosis of diabetes. Reference: Standards of Medical Care in Diabetes 2016, [place] Diabetes Association. Diabetes Care. 2016.39(Suppl 1). Interpretation and review of laboratory results Abnormal [facility] Potassium [Moles/Vol] 4.5 mmol/L 3.7 - 5.1 mmol/L [facility] Protein [Mass/Vol] 7.2 g/dL 6.3 - 8.0 g/dL [facility] Sodium [Moles/Vol] 137 mmol/L 136 - 144 mmol/L [facility] Urea nitrogen [Mass/Vol] 20 mg/dL 7 - 21 mg/dL [facility] Albumin [Mass/Vol] 4.0 g/dL Normal 3.9-4.9 [facility] Comment on above: Order Comment: Elfego pollock Type: BLOOD SPECIMENOrdering Facility: [facility] Address: [address] [place] [address] Performed By: #### 2 4323-8, 87855-7, 2777-1 ####[facility] [id number] [place] [address] [place] ALP [Catalytic activity/Vol] 120 U/L Normal 34-123 [facility] Comment on above: Order Comment: Elfego pollock Type: BLOOD SPECIMENOrdering Facility: [facility] Address: [address] [place] [address] Performed By: #### 2 4323-8, 29178-3, 2776- ####[facility] [id number] [place] [address] [place] ALT [Catalytic activity/Vol] 46 U/L High 7-38 [facility] Comment on above: Order Comment: Speci men Type: BLOOD SPECIMENOrdering Facility: [facility] Address: [address] [place] [address] Performed By: #### 2 4323-8, 72044-3, 2776- ####[facility] [id number] [place] [address] [place] Anion gap [Moles/Vol] 12 mmol/L Normal 8-15 [facility] Comment on above: Order Comment: Speci men Type: BLOOD SPECIMENOrdering Facility: [facility] Address: [address] [place] [address] Performed By: #### 2 4323-8, 44964-0, 2776-07 ####[facility] [id number] [place] [address] [place] AST [Catalytic activity/Vol] 37 U/L High 13-35 [facility] Comment on above: Order Comment: Speci men Type: BLOOD SPECIMENOrdering Facility: [facility] Address: [address] [place] [address] Performed By: #### 2 4323-8, 02975-5, 2776-07 ####[facility] [id number] [place] [address] [place] Bilirubin [Mass/Vol] 0.5 mg/dL Normal 0.2-1.3 [facility] Comment on above: Order Comment: Speci men Type: BLOOD SPECIMENOrdering Facility: [facility] Address: [address] [place] [address] Performed By: #### 2 4323-8, , 2776-07 ####[facility] [id number] [place] [address] [place] Calcium [Mass/Vol] 9.1 mg/dL Normal 8.5-10.2 [facility] Comment on above: Order Comment: Speci men Type: BLOOD SPECIMENOrdering Facility: [facility] Address: [address] [place] [address] Performed By: #### 2 4323-8, , 2776-07 ####[facility] [id number] [place] [address] [place] Chloride [Moles/Vol] 101 mmol/L Normal 98-107 [facility] Comment on above: Order Comment: Speci men Type: BLOOD SPECIMENOrdering Facility: [facility] Address: [address] [place] [address] Performed By: #### 2 4323-8, , 2776-07 ####[facility] [id number] [place] [address] [place] CO2 [Moles/Vol] 24 mmol/L Normal 22-30 [facility] Comment on above: Order Comment: Speci men Type: BLOOD SPECIMENOrdering Facility: [facility] Address: [address] [place] [address] Performed By: #### 2 4323-8, , 2776-07 ####[facility] [id number] [place] [address] [place] Creatinine [Mass/Vol] 0.53 mg/dL Low 0.58-0.96 [facility] Comment on above: Order Comment: Speci men Type: BLOOD SPECIMENOrdering Facility: [facility] Address: [address] [place] [address] Performed By: #### 2 4323-8, , 2777-1 ####[facility] [id number] [place] [address] [place] Creatinine and Glomerular filtration rate.predicted panel (S/P/Bld) 122 mL/min/1.73m??? Normal >=60 [facility] Comment on above: Order Comment: Elfego pollock Type: BLOOD SPECIMENOrdering Facility: [facility] Address: [address] [place] [address] Result Comment: Desiree mated Glomerular Filtration Rate (eGFR) is calculated using the 2020 CKD-EPI creatinine equation. This equation utilizes serum creatinine, sex, and age as parameters. The creatinine assay has traceable calibration to isotope dilution-mass spectrometry. Refer to KDIGO guidelines for clinical interpretation. In patients with unstable renal function, e.g. those with acute kidney injury, the eGFR may not accurately reflect actual GFR. Performed By: #### 2 4323-8, 30445-8, 2777-1 ####[facility] [id number] [place] [address] [place] Glucose [Mass/Vol] 104 mg/dL High 74-99 [facility] Comment on above: Order Comment: Elfego pollock Type: BLOOD SPECIMENOrdering Facility: [facility] Address: [address] [place] [address] Result Comment: The [place] Diabetes Association (ADA) provides guidance for cutoff values for fasting glucose and random glucose. The ADA defines fasting as no caloric intake for at least 8 hours. Fasting plasma glucose results between 100 to 125 mg/dL indicate increased risk for diabetes (prediabetes).Fasting plasma glucose results greater than or equal to 126 mg/dL meet the criteria for diagnosis of diabetes. In the absence of unequivocal hyperglycemia, results should be confirmed by repeat testing. In a patient with classic symptoms of hyperglycemia or hyperglycemic crisis, random plasma glucose results greater than or equal to 200 mg/dL meet the criteria for diagnosis of diabetes.Reference: Standards of Medical Care in Diabetes 2016, [place] Diabetes Association. Diabetes Care. 2016.39(Suppl 1). Performed By: #### 2 4323-8, 28587-9, 2777-1 ####[facility] [id number] [place] [address] [place] Potassium [Moles/Vol] 4.5 mmol/L Normal 3.7-5.1 [facility] Comment on above: Order Comment: Speci men Type: BLOOD SPECIMENOrdering Facility: [facility] Address: [address] [place] [address] Performed By: #### 2 4323-8, 99860-6, 2776- ####[facility] [id number] [place] [address] [place] Protein [Mass/Vol] 7.2 g/dL Normal 6.3-8.0 [facility] Comment on above: Order Comment: Speci men Type: BLOOD SPECIMENOrdering Facility: [facility] Address: [address] [place] [address] Performed By: #### 2 4323-8, , 2776-07 ####[facility] [id number] [place] [address] [place] Sodium [Moles/Vol] 137 mmol/L Normal 136-144 [facility] Comment on above: Order Comment: Speci men Type: BLOOD SPECIMENOrdering Facility: [facility] Address: [address] [place] [address] Performed By: #### 2 4323-8, 24653-5, 2776-07 ####[facility] [id number] [place] [address] [place] Urea nitrogen [Mass/Vol] 20 mg/dL Normal 7-21 [facility] Comment on above: Order Comment: Speci men Type: BLOOD SPECIMENOrdering Facility: [facility] Address: [address] [place] [address] Performed By: #### 2 4323-8, 62061-2, 2776- ####[facility] [id number] [place] [id number] [place] MAGNESIUMon 12-29-2024 Magnesium [Mass/Vol] 2 mg/dL 1.7 - 2.3 mg/dL [facility] MANGANESE BLDon 12-29-2024 Manganese (Bld) [Mass/Vol] 10.3 ug/L Normal 4.4-15.2 [facility] Comment on above: Order Comment: Elfego pollock Type: BLOOD SPECIMENOrdering Facility: [facility] Address: [address] [place] [address] Result Comment: This test was developed, and its performance characteristics determined by the [facility] Department of Pathology and Laboratory Medicine. It has not been cleared or approved by the FDA. The [facility] Department of Pathology and Laboratory Medicine is regulated under CLIA as qualified to perform high-complexity testing. This test is used for clinical purposes. It should not be regarded as investigational or for research. Performed By: #### M SERENA ####[facility] [id number] [place] [address] [place] Magnesium SerPl-mCncon 12-29 Magnesium [Mass/Vol] 2.0 mg/dL Normal 1.7-2.3 [facility] Comment on above: Order Comment: Elfego pollock Type: BLOOD SPECIMENOrdering Facility: [facility] Address: [address] [place] [address] Performed By: #### 2 4323-8, 71521-7, 2777-1 ####[facility] [id number] [place] [address] [place] No Panel Informationon 12-29 Interpretation and review of laboratory results Normal [facility] PHOSPHORUS INORGANICon 12-29 Phosphate [Mass/Vol] 3.7 mg/dL 2.7 - 4.8 mg/dL [facility] Phosphate SerPl-mCncon 12-29 Phosphate [Mass/Vol] 3.7 mg/dL Normal 2.7-4.8 [facility] Comment on above: Order Comment: Elfego pollock Type: BLOOD SPECIMENOrdering Facility: [facility] Address: [address] [place] [address] Performed By: #### 2 4323-8, 01366-5, 2777-1 ####[facility] [id number] [place] [address] [place] Selenium Bld-mCncon 12-30-19 25 Selenium (Bld) [Mass/Vol] 107.7 ug/L Normal 58.0-234.0 [facility] Comment on above: Order Comment: Speci men Type: BLOOD SPECIMENOrdering Facility: [facility] Address: [address] [place] [address] Result Comment: This test was developed, and its performance characteristics determined by the [facility] Department of Pathology and Laboratory Medicine. It has not been cleared or approved by the FDA. The [facility] Department of Pathology and Laboratory Medicine is regulated under CLIA as qualified to perform high-complexity testing. This test is used for clinical purposes. It should not be regarded as investigational or for research. Performed By: #### 5 722-4 ####[facility] [id number] [place] [address] [place] US ARM VEIN DVT [facility] n 12-29-2024 ARM VEIN DVT [facility] Normal [facility] Upper extremity veins - b ilateralon 12-29-2024 Non-Invasive Vascular Laboratory [facility] J35 Upper Extremity Venous Duplex Bilateral/Complete Date of service/time: 12/29/2024 11:33:41 AM Name: MS. FRANCINE HOBSON Date: 1985 Age: 39 years Gender: F Clinical Indication Previous deep vein thrombosis. TECHNIQUE -------- A venous duplex ultrasound examination was performed, including grayscale imaging with compression maneuvers and color Doppler and spectral Doppler examination with augmentation maneuvers and response to respiration of the below mentioned veins. FINDINGS -------- RIGHT SIDE Internal jugular vein Doppler: normal flow. Compression: normal. Basilic vein Compression: normal. Cephalic vein Compression: normal. Radial vein Doppler: normal flow. Compression: normal. Ulnar vein Doppler: normal flow. Compression: normal. LEFT SIDE Internal jugular vein Doppler: normal flow. Compression: normal. Subclavian vein Doppler: normal flow. Compression: normal. Axillary vein Doppler: normal flow. Compression: normal. Basilic vein Compression: normal. Cephalic vein Compression: normal. Innominate vein Doppler: normal flow. Radial vein Doppler: normal flow. Compression: normal. Ulnar vein Doppler: normal flow. Compression: normal. IMPRESSION Compared to prior study of 09/19/2024, Previous deep vein thrombosis no longer visualized on today's exam. RIGHT SIDE - DEEP VEINS Technically limited study. Negative for acute deep vein thrombosis in vessels visualized. Unable to visualize the subclavian vein and axillary vein due to IV lines and bandages. High bifurcation noted. LEFT SIDE - DEEP VEINS Negative for acute deep vein thrombosis. High bifurcation noted. Technologist: Sarahy Holt RVT Ordering physician: MARIAM DUPONT Interpreting physician: Jose Manuel Biswas DO Final See Link below for Image [facility] CNNURSEon 12-25-2024 CNNURSE Normal [facility] CNOVon 12-25-2024 CNOV Normal [facility] CNOV Normal [facility] CNCOon 12-14-2024 CNCO Letter Text Normal [facility] Coding Queryon 11-22-2024 Coding Query [id number]# 1.00OTGTIFF [facility] CNPNon 11-10-2024 CNPN Normal [facility] CNPNon 11-08-2024 CNPN Normal [facility] 25(OH)D3 SerPl-mCncon 2024 25-hydroxyvitamin D3 [Mass/Vol] 32.2 ng/mL Normal 31.0-80.0 [facility] Comment on above: Order Comment: Speci men Type: BLOOD SPECIMENOrdering Facility: [facility] Address: [address] [place] [address] Result Comment: Clas sification of 25 [place] Vitamin D status:Deficiency/Insufficiency: < or = 30 ng/ml.Sufficiency/Optimal Levels: 31-80 ng/mLToxicity: > 100 ng/mL.Test performed by chemiluminescent immunoassay. Performed By: #### 1 989-3 ####[facility] LABIA [id number] [address] [place] [facility] BD DXA - AXIAL SKELETONon BD DXA - AXIAL SKELETON Normal [facility] BD DXA TRABECLR BONE SCORE ( TBS)on 11-07-2024 BD DXA TRABECLR BONE SCORE (TBS) Normal [facility] BLOOD TB SCREENon 11-07-2024 M. tuberculosis tuberculin stim IFN-g Ql (Bld) Negative Normal [facility] Comment on above: Order Comment: Speci men Type: BLOOD SPECIMENOrdering Facility: [facility] Address: [address] [place] [address] Performed By: #### I NFTBP ####[facility] [id number] [place] [address] [place] MITOGEN MINUS NIL >9.95 Normal >=0.50 [facility] Comment on above: Order Comment: Speci men Type: BLOOD SPECIMENOrdering Facility: [facility] Address: [address] [place] [address] Performed By: #### I NFTBP ####[facility] LABIA [id number] [place] [address] [place] TB GAMMA INTERPRETATION Normal [facility] Comment on above: Order Comment: Speci men Type: BLOOD SPECIMENOrdering Facility: [facility] Address: [address] [place] [address] Performed By: #### I NFTBP ####[facility] LABIA [id number] [address] [place] TB NIL 0.05 IU/mL Normal <=8.00 [facility] Comment on above: Order Comment: Speci men Type: BLOOD SPECIMENOrdering Facility: [facility] Address: [address] [place] [address] Performed By: #### I NFTBP ####[facility] LABCLIA [id number] [place] [address] [place] TB1 AG MINUS NIL 0.05 IU/mL Normal <0.35 [facility] Comment on above: Order Comment: Speci men Type: BLOOD SPECIMENOrdering Facility: [facility] Address: [address] [place] [address] Performed By: #### I NFTBP ####[facility] LABIA [id number] [address] TB2 AG MINUS NIL 0.02 IU/mL Normal <0.35 [facility] Comment on above: Order Comment: Speci men Type: BLOOD SPECIMENOrdering Facility: [facility] Address: [address] [place] [address] Performed By: #### I NFTBP ####[facility] LABCLIA [id number] [place] [address] [place] CBC W Auto Differential pane l (Bld)on 11-07-2024 Basophils (Bld) [#/Vol] 0 10*3/uL [facility] Basophils/100 WBC (Bld) 0 % [facility] Differential cell count method Nom (Bld) Manual [facility] Eosinophils (Bld) [#/Vol] 0.08 10*3/uL [facility] Eosinophils/100 WBC (Bld) 2 % [facility] Erythrocyte distribution width (RBC) [Ratio] 14.3 % 11.5 - 15.0 % [facility] Hematocrit (Bld) [Volume fraction] 35.4 % Low 36.0 - 46.0 % [facility] Hemoglobin (Bld) [Mass/Vol] 11.6 g/dL 11.5 - 15.5 g/dL [facility] Interpretation and review of laboratory results Abnormal [facility] Lymphocytes (Bld) [#/Vol] 1.45 10*3/uL [facility] Lymphocytes/100 WBC (Bld) 35 % [facility] MCH (RBC) [Entitic mass] 28.6 pg 26.0 - 34.0 pg [facility] MCHC (RBC) [Mass/Vol] 32.8 g/dL 30.5 - 36.0 g/dL [facility] MCV (RBC) [Entitic vol] 87.4 fL 80.0 - 100.0 fL [facility] Monocytes (Bld) [#/Vol] 0.17 10*3/uL NINF [facility] Monocytes/100 WBC (Bld) 4 % [facility] Neutrophils (Bld) [#/Vol] 2.44 10*3/uL [facility] Neutrophils/100 WBC (Bld) 59 % [facility] Nucleated RBC (Bld) [#/Vol] NINF [facility] Nucleated RBC/100 WBC (Bld) [Ratio] 0 % /100 WBC [facility] Ovalocytes LM Ql (Bld) Few [facility] Platelet mean volume (Bld) [Entitic vol] 10.7 fL 9.0 - 12.7 fL [facility] Platelets (Bld) [#/Vol] 203 10*3/uL [facility] Platelets Estimate (Bld) [#/Vol] Adequate [facility] RBC (Bld) [#/Vol] 4.05 10*6/uL 3.90 - 5.20 m/uL [facility] Red Cell Morph Reviewed: see results of individual morphologies [facility] WBC (Bld) [#/Vol] 4.14 10*3/uL [facility] This is an appended report. These results have been appended to a previously verified report. [facility] Basophils (Bld) [#/Vol] 0.00 10*3/uL Normal <0.11 [facility] Comment on above: Order Comment: Speci men Type: BLOOD SPECIMENOrdering Facility: [facility] Address: [address] [place] [address] Performed By: #### 5 7021-8 ####[facility] [id number] [place] [address] [place] Basophils/100 WBC (Bld) 0.0 % Normal [facility] Comment on above: Order Comment: Speci men Type: BLOOD SPECIMENOrdering Facility: [facility] Address: [address] [place] [address] Performed By: #### 5 7021-8 ####[facility] [id number] [place] [address] [place] Differential cell count method Nom (Bld) Manual Normal [facility] Comment on above: Order Comment: Speci men Type: BLOOD SPECIMENOrdering Facility: [facility] Address: [address] [place] [address] Performed By: #### 5 7021-8 ####[facility] [id number] [place] [address] [place] Eosinophils (Bld) [#/Vol] 0.08 10*3/uL Normal <0.46 [facility] Comment on above: Order Comment: Speci men Type: BLOOD SPECIMENOrdering Facility: [facility] Address: [address] [place] [address] Performed By: #### 5 7021-8 ####[facility] [id number] [place] [address] [place] Eosinophils/100 WBC (Bld) 2.0 % Normal [facility] Comment on above: Order Comment: Speci men Type: BLOOD SPECIMENOrdering Facility: [facility] Address: [address] [place] [address] Performed By: #### 5 7021-8 ####[facility] [id number] [place] [address] [place] Erythrocyte distribution width (RBC) [Ratio] 14.3 % Normal 11.5-15.0 [facility] Comment on above: Order Comment: Speci men Type: BLOOD SPECIMENOrdering Facility: [facility] Address: [address] [place] [address] Performed By: #### 5 7021-8 ####[facility] [id number] [place] [address] [place] Hematocrit (Bld) [Volume fraction] 35.4 % Low 36.0-46.0 [facility] Comment on above: Order Comment: Speci men Type: BLOOD SPECIMENOrdering Facility: [facility] Address: [address] [place] [address] Performed By: #### 5 7021-8 ####[facility] [place] [id number] [place] [address] [place] Hemoglobin (Bld) [Mass/Vol] 11.6 g/dL Normal 11.5-15.5 [facility] Comment on above: Order Comment: Speci men Type: BLOOD SPECIMENOrdering Facility: [facility] Address: [address] [place] [address] Performed By: #### 5 7021-8 ####[facility] [id number] [place] [address] [place] Lymphocytes (Bld) [#/Vol] 1.45 10*3/uL Normal 1.00-4.00 [facility] Comment on above: Order Comment: Speci men Type: BLOOD SPECIMENOrdering Facility: [facility] Address: [address] [place] [address] Performed By: #### 5 7021-8 ####[facility] [place] [id number] [place] [address] [place] Lymphocytes/100 WBC (Bld) 35.0 % Normal [facility] Comment on above: Order Comment: Speci men Type: BLOOD SPECIMENOrdering Facility: [facility] Address: [address] [place] [address] Performed By: #### 5 7021-8 ####[facility] [place] [id number] [place] [address] [place] MCH (RBC) [Entitic mass] 28.6 pg Normal 26.0-34.0 [facility] Comment on above: Order Comment: Speci men Type: BLOOD SPECIMENOrdering Facility: [facility] Address: [address] [place] [address] Performed By: #### 5 7021-8 ####[facility] [place] [id number] [place] [address] [place] MCHC (RBC) [Mass/Vol] 32.8 g/dL Normal 30.5-36.0 [facility] Comment on above: Order Comment: Speci men Type: BLOOD SPECIMENOrdering Facility: [facility] Address: [address] [place] [address] Performed By: #### 5 7021-8 ####[facility] [id number] [place] [address] [place] MCV (RBC) [Entitic vol] 87.4 fL Normal 80.0-100.0 [facility] Comment on above: Order Comment: Speci men Type: BLOOD SPECIMENOrdering Facility: [facility] Address: [address] [place] [address] Performed By: #### 5 7021-8 ####[facility] [place] [id number] [place] [address] [place] Monocytes (Bld) [#/Vol] 0.17 10*3/uL Normal <0.87 [facility] Comment on above: Order Comment: Speci men Type: BLOOD SPECIMENOrdering Facility: [facility] Address: [address] [place] [address] Performed By: #### 5 7021-8 ####[facility] [id number] [place] [address] [place] Monocytes/100 WBC (Bld) 4.0 % Normal [facility] Comment on above: Order Comment: Speci men Type: BLOOD SPECIMENOrdering Facility: [facility] Address: [address] [place] [address] Performed By: #### 5 7021-8 ####[facility] [place] [id number] [place] [address] [place] Neutrophils (Bld) [#/Vol] 2.44 10*3/uL Normal 1.45-7.50 [facility] Comment on above: Order Comment: Speci men Type: BLOOD SPECIMENOrdering Facility: [facility] Address: [address] [place] [address] Performed By: #### 5 7021-8 ####[facility] [place] [id number] [place] [address] [place] Neutrophils/100 WBC (Bld) 59.0 % Normal [facility] Comment on above: Order Comment: Speci men Type: BLOOD SPECIMENOrdering Facility: [facility] Address: [address] [place] [address] Performed By: #### 5 7021-8 ####[facility] [id number] [place] [address] [place] Nucleated RBC (Bld) [#/Vol] 10*3/uL Normal <0.01 [facility] Comment on above: Order Comment: Speci men Type: BLOOD SPECIMENOrdering Facility: [facility] Address: [address] [place] [address] Performed By: #### 5 7021-8 ####[facility] [id number] [place] [address] [place] Nucleated RBC/100 WBC (Bld) [Ratio] 0.0 /100 WBC Normal [facility] Comment on above: Order Comment: Speci men Type: BLOOD SPECIMENOrdering Facility: [facility] Address: [address] [place] [address] Performed By: #### 5 7021-8 ####[facility] [id number] [place] [address] [place] Ovalocytes LM Ql (Bld) Few Normal [facility] Comment on above: Order Comment: Speci men Type: BLOOD SPECIMENOrdering Facility: [facility] Address: [address] [place] [address] Performed By: #### 5 7021-8 ####[facility] [id number] [place] [address] [place] Platelet mean volume (Bld) [Entitic vol] 10.7 fL Normal 9.0-12.7 [facility] Comment on above: Order Comment: Speci men Type: BLOOD SPECIMENOrdering Facility: [facility] Address: [address] [place] [address] Performed By: #### 5 7021-8 ####[facility] [id number] [place] [address] [place] Platelets (Bld) [#/Vol] 203 10*3/uL Normal 150-400 [facility] Comment on above: Order Comment: Speci men Type: BLOOD SPECIMENOrdering Facility: [facility] Address: [address] [place] [address] Performed By: #### 5 7021-8 ####[facility] [id number] [place] [address] [place] Platelets Estimate (Bld) [#/Vol] Adequate Normal [facility] Comment on above: Order Comment: Speci men Type: BLOOD SPECIMENOrdering Facility: [facility] Address: [address] [place] [address] Performed By: #### 5 7021-8 ####[facility] [id number] [place] [address] [place] RBC (Bld) [#/Vol] 4.05 10*6/uL Normal 3.90-5.20 [facility] Comment on above: Order Comment: Speci men Type: BLOOD SPECIMENOrdering Facility: [facility] Address: [address] [place] [address] Performed By: #### 5 7021-8 ####[facility] [place] [id number] [place] [address] [place] RED CELL MORPH Reviewed: see results of individual morphologies Normal [facility] Comment on above: Order Comment: Speci men Type: BLOOD SPECIMENOrdering Facility: [facility] Address: [address] [place] [address] Performed By: #### 5 7021-8 ####[facility] [id number] [place] [address] [place] WBC (Bld) [#/Vol] 4.14 10*3/uL Normal 3.70-11.00 [facility] Comment on above: Order Comment: Speci men Type: BLOOD SPECIMENOrdering Facility: [facility] Address: [address] [place] [address] Performed By: #### 5 7021-8 ####[facility] [id number] [place] [address] [place] CNNURSEon 11-07-2024 CNNURSE Normal [facility] CNOVon 11-07-2024 CNOV Normal [facility] CNPTOUTREACHon 11-07-2024 CNPTOUTREACH Normal [facility] Cobalamin (Vitamin B12) [Mas s/Vol]on 11-07-2024 Interpretation and review of laboratory results Normal [facility] Comprehensive metabolic 2000 panelon 11-07-2024 Albumin [Mass/Vol] 4.2 g/dL 3.9 - 4.9 g/dL [facility] ALP [Catalytic activity/Vol] 87 U/L 34 - 123 U/L [facility] ALT [Catalytic activity/Vol] 21 U/L 7 - 38 U/L [facility] Anion gap [Moles/Vol] 11 mmol/L 8 - 15 mmol/L [facility] AST [Catalytic activity/Vol] 20 U/L 13 - 35 U/L [facility] Bilirubin [Mass/Vol] 0.4 mg/dL 0.2 - 1.3 mg/dL [facility] Calcium [Mass/Vol] 9.1 mg/dL 8.5 - 10.2 mg/dL [facility] Chloride [Moles/Vol] 102 mmol/L 98 - 107 mmol/L [facility] CO2 [Moles/Vol] 25 mmol/L 22 - 30 mmol/L [facility] Creatinine [Mass/Vol] 0.61 mg/dL 0.58 - 0.96 mg/dL [facility] GFR/1.73 sq M.predicted among non-blacks MDRD (S/P/Bld) [Vol rate/Area] 118 mL/min/{1.73_m2} - PINF [facility] Comment on above: Estimated Glomerular Filtration Rate (eGFR) is calculated using the 2020 CKD-EPI creatinine equation. This equation utilizes serum creatinine, sex, and age as parameters. The creatinine assay has traceable calibration to isotope dilution-mass spectrometry. Refer to KDIGO guidelines for clinical interpretation. In patients with unstable renal function, e.g. those with acute kidney injury, the eGFR may not accurately reflect actual GFR. Glucose [Mass/Vol] 100 mg/dL High 74 - 99 mg/dL [facility] Comment on above: The [place] Diabete s Association (ADA) provides guidance for cutoff values for fasting glucose and random glucose. The ADA defines fasting as no caloric intake for at least 8 hours. Fasting plasma glucose results between 100 to 125 mg/dL indicate increased risk for diabetes (prediabetes). Fasting plasma glucose results greater than or equal to 126 mg/dL meet the criteria for diagnosis of diabetes. In the absence of unequivocal hyperglycemia, results should be confirmed by repeat testing. In a patient with classic symptoms of hyperglycemia or hyperglycemic crisis, random plasma glucose results greater than or equal to 200 mg/dL meet the criteria for diagnosis of diabetes. Reference: Standards of Medical Care in Diabetes 2016, [place] Diabetes Association. Diabetes Care. 2016.39(Suppl 1). Interpretation and review of laboratory results Abnormal [facility] Potassium [Moles/Vol] 4.5 mmol/L 3.7 - 5.1 mmol/L [facility] Protein [Mass/Vol] 7.4 g/dL 6.3 - 8.0 g/dL Cl [facility] Sodium [Moles/Vol] 138 mmol/L 136 - 144 mmol/L [facility] Urea nitrogen [Mass/Vol] 25 mg/dL High 7 - 21 mg/dL [facility] Albumin [Mass/Vol] 4.2 g/dL Normal 3.9-4.9 [facility] Comment on above: Order Comment: Speci men Type: BLOOD SPECIMENOrdering Facility: [facility] Address: [address] [place] [address] Performed By: #### 2 4323-8 ####[facility] [id number] [place] [address] [place] ALP [Catalytic activity/Vol] 87 U/L Normal 34-123 [facility] Comment on above: Order Comment: Speci men Type: BLOOD SPECIMENOrdering Facility: [facility] Address: [address] [place] [address] Performed By: #### 2 4323-8 ####[facility] [id number] [place] [address] [place] ALT [Catalytic activity/Vol] 21 U/L Normal 7-38 [facility] Comment on above: Order Comment: Speci men Type: BLOOD SPECIMENOrdering Facility: [facility] Address: [address] [place] [address] Performed By: #### 2 4323-8 ####[facility] [id number] [place] [address] [place] Anion gap [Moles/Vol] 11 mmol/L Normal 8-15 [facility] Comment on above: Order Comment: Speci men Type: BLOOD SPECIMENOrdering Facility: [facility] Address: [address] [place] [address] Performed By: #### 2 4323-8 ####[facility] [id number] [place] [address] [place] AST [Catalytic activity/Vol] 20 U/L Normal 13-35 [facility] Comment on above: Order Comment: Speci men Type: BLOOD SPECIMENOrdering Facility: [facility] Address: [address] [place] [address] Performed By: #### 2 4323-8 ####[facility] [id number] [place] [address] [place] Bilirubin [Mass/Vol] 0.4 mg/dL Normal 0.2-1.3 [facility] Comment on above: Order Comment: Speci men Type: BLOOD SPECIMENOrdering Facility: [facility] Address: [address] [place] [address] Performed By: #### 2 4323-8 ####[facility] [place] [id number] [place] [address] [place] Calcium [Mass/Vol] 9.1 mg/dL Normal 8.5-10.2 [facility] Comment on above: Order Comment: Speci men Type: BLOOD SPECIMENOrdering Facility: [facility] Address: [address] [place] [address] Performed By: #### 2 4323-8 ####[facility] [id number] [place] [address] [place] Chloride [Moles/Vol] 102 mmol/L Normal 98-107 [facility] Comment on above: Order Comment: Speci men Type: BLOOD SPECIMENOrdering Facility: [facility] Address: [address] [place] [address] Performed By: #### 2 4323-8 ####[facility] [id number] [place] [address] [place] CO2 [Moles/Vol] 25 mmol/L Normal 22-30 [facility] Comment on above: Order Comment: Speci men Type: BLOOD SPECIMENOrdering Facility: [facility] Address: [address] [place] [address] Performed By: #### 2 4323-8 ####[facility] [id number] [place] [address] [place] Creatinine [Mass/Vol] 0.61 mg/dL Normal 0.58-0.96 [facility] Comment on above: Order Comment: Speci men Type: BLOOD SPECIMENOrdering Facility: [facility] Address: [address] [place] [address] Performed By: #### 2 4323-8 ####[facility] [id number] [place] [address] [place] Creatinine and Glomerular filtration rate.predicted panel (S/P/Bld) 118 mL/min/1.73m??? Normal >=60 [facility] Comment on above: Order Comment: Elfego pollock Type: BLOOD SPECIMENOrdering Facility: [facility] Address: [address] [place] [address] Result Comment: Desiree mated Glomerular Filtration Rate (eGFR) is calculated using the 2020 CKD-EPI creatinine equation. This equation utilizes serum creatinine, sex, and age as parameters. The creatinine assay has traceable calibration to isotope dilution-mass spectrometry. Refer to KDIGO guidelines for clinical interpretation. In patients with unstable renal function, e.g. those with acute kidney injury, the eGFR may not accurately reflect actual GFR. Performed By: #### 2 4323-8 ####[facility] [id number] [place] [address] [place] Glucose [Mass/Vol] 100 mg/dL High 74-99 [facility] Comment on above: Order Comment: Elfego maris Type: BLOOD SPECIMENOrdering Facility: [facility] Address: [address] [place] [address] Result Comment: The [place] Diabetes Association (ADA) provides guidance for cutoff values for fasting glucose and random glucose. The ADA defines fasting as no caloric intake for at least 8 hours. Fasting plasma glucose results between 100 to 125 mg/dL indicate increased risk for diabetes (prediabetes).Fasting plasma glucose results greater than or equal to 126 mg/dL meet the criteria for diagnosis of diabetes. In the absence of unequivocal hyperglycemia, results should be confirmed by repeat testing. In a patient with classic symptoms of hyperglycemia or hyperglycemic crisis, random plasma glucose results greater than or equal to 200 mg/dL meet the criteria for diagnosis of diabetes.Reference: Standards of Medical Care in Diabetes 2016, [place] Diabetes Association. Diabetes Care. 2016.39(Suppl 1). Performed By: #### 2 4323-8 ####[facility] [id number] [place] [address] [place] Potassium [Moles/Vol] 4.5 mmol/L Normal 3.7-5.1 [facility] Comment on above: Order Comment: Speci men Type: BLOOD SPECIMENOrdering Facility: [facility] Address: [address] [place] [address] Performed By: #### 2 4323-8 ####[facility] [id number] [place] [address] [place] Protein [Mass/Vol] 7.4 g/dL Normal 6.3-8.0 [facility] Comment on above: Order Comment: Speci men Type: BLOOD SPECIMENOrdering Facility: [facility] Address: [address] [place] [address] Performed By: #### 2 4323-8 ####[facility] [place] [id number] [place] [address] [place] Sodium [Moles/Vol] 138 mmol/L Normal 136-144 [facility] Comment on above: Order Comment: Speci men Type: BLOOD SPECIMENOrdering Facility: [facility] Address: [address] [place] [address] Performed By: #### 2 4323-8 ####[facility] [id number] [place] [address] [place] Urea nitrogen [Mass/Vol] 25 mg/dL High 7-21 [facility] Comment on above: Order Comment: Speci men Type: BLOOD SPECIMENOrdering Facility: [facility] Address: [address] [place] [address] Performed By: #### 2 4323-8 ####[facility] [id number] [place] [address] [place] DXA Femur [T-score] Bone den sityon 11-07-2024 * * *Final Report* * * DATE OF EXAM: Nov 07 2024 11:15AM [facility] [place] [facility] - BD DXA TRABECLR BONE SCORE (TBS) / PROCEDURE REASON: Crohn's disease of small and large intestines with complication (HCC) * * * * Physician Interpretation * * * * EXAMINATION: DXA BONE DENSITOMETRY BD DXA TRABECLR BONE SCORE (TBS), BD DXA - AXIAL SKELETON PATIENT DEMOGRAPHICS: Age: 39 years, Gender: Female SCANNER INFORMATION: DXA Model: A21 [employer] A [id number] Date Scanned: 11/07/2024 11:15 AM CLINICAL HISTORY: DIAGNOSTIC Crohn's disease of small and large intestines with complication (HCC) . RISK FACTORS FOR OSTEOPOROSIS AND ASSOCIATED FRACTURES REPORTED BY THIS PATIENT: Please refer to Bone Health Questionnaire in the EMR CURRENT THERAPY: Please refer to Bone Health Questionnaire in the EMR TECHNICAL LIMITATIONS: RESULTS: Lumbar Spine (L1, L2, L3, L4): Total BMD: 0.757 g/cm2, Z-score: -2.5 Left Femoral Neck: 0.663 g/cm2, Z-score -1.5 Left Total Hip: 0.725 g/cm2 , Z-score -1.7 No comparison data - the patient has not had a previous bone density in the [facility] or the previous bone density was performed on a different DXA machine (new, updated model or different location) within the [facility]. VERTEBRAL FRACTURE ASSESSMENT Not performed. TRABECULAR BONE ASSESSMENT TBS score: 1.214 Bone micro-architecture: Degraded DIVISION OF RADIOLOGY Provider, [facility] - 11/07/2024 * * *Final Report* * * DATE OF EXAM: Nov 07 2024 11:15AM [facility] [place] DXA TRABECLR BONE SCORE (TBS) / PROCEDURE REASON: Crohn's disease of small and large intestines with complication (HCC) * * * * Physician Interpretation * * * * EXAMINATION: DXA BONE DENSITOMETRY BD DXA TRABECLR BONE SCORE (TBS), BD DXA - AXIAL SKELETON PATIENT DEMOGRAPHICS: Age: 39 years, Gender: Female SCANNER INFORMATION: DXA Model: A21 [employer] Horizon A [id number] Date Scanned: 11/07/2024 11:15 AM CLINICAL HISTORY: DIAGNOSTIC Crohn's disease of small and large intestines with complication (HCC) . RISK FACTORS FOR OSTEOPOROSIS AND ASSOCIATED FRACTURES REPORTED BY THIS PATIENT: Please refer to Bone Health Questionnaire in the EMR CURRENT THERAPY: Please refer to Bone Health Questionnaire in the EMR TECHNICAL LIMITATIONS: RESULTS: Lumbar Spine (L1, L2, L3, L4): Total BMD: 0.757 g/cm2, Z-score: -2.5 Left Femoral Neck: 0.663 g/cm2, Z-score -1.5 Left Total Hip: 0.725 g/cm2 , Z-score -1.7 No comparison data - the patient has not had a previous bone density in the [facility] or the previous bone density was performed on a different DXA machine (new, updated model or different location) within the [facility]. VERTEBRAL FRACTURE ASSESSMENT Not performed. TRABECULAR BONE ASSESSMENT TBS score: 1.214 Bone micro-architecture: Degraded IMPRESSION IMPRESSION: THE LOWEST Z-SCORE IS -2.5 IN THE SPINE 1) DIAGNOSIS (based on BMD alone): BELOW THE EXPECTED RANGE FOR AGE -Caution: medical conditions other than osteoporosis may cause low bone density, such as osteomalacia or renal osteodystrophy. Clinical correlation is necessary. 2) FRACTURE RISK (based on BMD alone): Fracture data based solely on BMD is not available in this age group to make this assessment. However, fracture risk may be increased independent of BMD, particularly in patients taking corticosteroids or patients with a prior fragility fracture. RECOMMENDATIONS: Follow-up as clinically indicated. Patients that are taking corticosteroids, are transplant recipients or have hyperparathyroidism should have annual follow-up. Follow-up scans should always be done on the same machine for accurate comparison. FOR MORE INFORMATION ABOUT DIAGNOSIS AND TREATMENT: [facility] Center for Osteoporosis and Metabolic Bone Disease:? [email or web address]/[email or web address] s/osteo National Osteoporosis Foundation:? www.nof.org International Society of Clinical Densitometry www.iscd.org Running Instructor: sens Transcribe Date/Time: Nov 07 2024 11:19A Dictated by : ASHLEY VEGA MD This examination was interpreted and the report reviewed and electronically signed by: ASHLEY VEGA MD on Nov 07 2024 9:08PM EST [facility] DXA Skeletal system.axial Vi ews for bone densityon 11-07-2024 * * *Final Report* * * DATE OF EXAM: Nov 07 2024 11:15AM [facility] [place] BD DXA - AXIAL SKELETON / PROCEDURE REASON: Crohn's disease of small and large intestines with complication (HCC) * * * * Physician Interpretation * * * * EXAMINATION: DXA BONE DENSITOMETRY BD DXA TRABECLR BONE SCORE (TBS), BD DXA - AXIAL SKELETON PATIENT DEMOGRAPHICS: Age: 39 years, Gender: Female SCANNER INFORMATION: DXA Model: A21 [employer] Horizon A [id number] Date Scanned: 11/07/2024 11:15 AM CLINICAL HISTORY: DIAGNOSTIC Crohn's disease of small and large intestines with complication (HCC) . RISK FACTORS FOR OSTEOPOROSIS AND ASSOCIATED FRACTURES REPORTED BY THIS PATIENT: Please refer to Bone Health Questionnaire in the EMR CURRENT THERAPY: Please refer to Bone Health Questionnaire in the EMR TECHNICAL LIMITATIONS: RESULTS: Lumbar Spine (L1, L2, L3, L4): Total BMD: 0.757 g/cm2, Z-score: -2.5 Left Femoral Neck: 0.663 g/cm2, Z-score -1.5 Left Total Hip: 0.725 g/cm2 , Z-score -1.7 No comparison data - the patient has not had a previous bone density in the [facility] or the previous bone density was performed on a different DXA machine (new, updated model or different location) within the [facility]. VERTEBRAL FRACTURE ASSESSMENT Not performed. TRABECULAR BONE ASSESSMENT TBS score: 1.214 Bone micro-architecture: Degraded DIVISION OF RADIOLOGY Provider, [facility] - 11/07/2024 * * *Final Report* * * DATE OF EXAM: Nov 07 2024 11:15AM [facility] - DXA - AXIAL SKELETON / PROCEDURE REASON: Crohn's disease of small and large intestines with complication (HCC) * * * * Physician Interpretation * * * * EXAMINATION: DXA BONE DENSITOMETRY BD DXA TRABECLR BONE SCORE (TBS), BD DXA - AXIAL SKELETON PATIENT DEMOGRAPHICS: Age: 39 years, Gender: Female SCANNER INFORMATION: DXA Model: A21 [employer] Horizon A [id number] Date Scanned: 11/07/2024 11:15 AM CLINICAL HISTORY: DIAGNOSTIC Crohn's disease of small and large intestines with complication (HCC) . RISK FACTORS FOR OSTEOPOROSIS AND ASSOCIATED FRACTURES REPORTED BY THIS PATIENT: Please refer to Bone Health Questionnaire in the EMR CURRENT THERAPY: Please refer to Bone Health Questionnaire in the EMR TECHNICAL LIMITATIONS: RESULTS: Lumbar Spine (L1, L2, L3, L4): Total BMD: 0.757 g/cm2, Z-score: -2.5 Left Femoral Neck: 0.663 g/cm2, Z-score -1.5 Left Total Hip: 0.725 g/cm2 , Z-score -1.7 No comparison data - the patient has not had a previous bone density in the [facility] or the previous bone density was performed on a different DXA machine (new, updated model or different location) within the [facility]. VERTEBRAL FRACTURE ASSESSMENT Not performed. TRABECULAR BONE ASSESSMENT TBS score: 1.214 Bone micro-architecture: Degraded IMPRESSION IMPRESSION: THE LOWEST Z-SCORE IS -2.5 IN THE SPINE 1) DIAGNOSIS (based on BMD alone): BELOW THE EXPECTED RANGE FOR AGE -Caution: medical conditions other than osteoporosis may cause low bone density, such as osteomalacia or renal osteodystrophy. Clinical correlation is necessary. 2) FRACTURE RISK (based on BMD alone): Fracture data based solely on BMD is not available in this age group to make this assessment. However, fracture risk may be increased independent of BMD, particularly in patients taking corticosteroids or patients with a prior fragility fracture. RECOMMENDATIONS: Follow-up as clinically indicated. Patients that are taking corticosteroids, are transplant recipients or have hyperparathyroidism should have annual follow-up. Follow-up scans should always be done on the same machine for accurate comparison. FOR MORE INFORMATION ABOUT DIAGNOSIS AND TREATMENT: [facility] Center for Osteoporosis and Metabolic Bone Disease:? [email or web address]/[email or web address] s/osteo National Osteoporosis Foundation:? www.nof.org International Society of Clinical Densitometry www.iscd.org Running Instructor: sens Transcribe Date/Time: Nov 07 2024 11:19A Dictated by : ASHLEY VEGA MD This examination was interpreted and the report reviewed and electronically signed by: ASHLEY VEGA MD on Nov 07 2024 9:08PM EST [facility] HBV core Ab Ser Qlon 025 HBV core Ab Ql (S) Negative Normal Negative [facility] Comment on above: Order Comment: Speci men Type: BLOOD SPECIMENOrdering Facility: [facility] Address: [address] [place] [address] Result Comment: No e vidence of current or past infection with Hepatitis B virus. Should recent infection be suspected, repeat testing may be considered 3-4 weeks after this draw. Performed By: #### 5 195-3, 38074-6, 54511-9 ####[facility] LABCLIA [id number] [place] [address] [place] HBV surface Ab Ql (S)on HBV surface Ab Qn (S) <8.00 Normal [facility] Comment on above: Order Comment: Speci men Type: BLOOD SPECIMENOrdering Facility: [facility] Address: [address] [place] [address] Result Comment: <8 m IU/mL: No serological evidence of immunity to Hepatitis B Virus.>/= 8 to <12 mIU/mL: No serological evidence of immunity to Hepatitis B Virus.>/= 12 mIU/mL: Consistent with serological evidence of immunity to Hepatitis B Virus. Performed By: #### 5 195-3, 42007-8, 78589-9 ####[facility] LABCLIA [id number] [address] HBV surface Ab Ser Qlon HBV surface Ab Ql (S) Negative Normal [facility] Comment on above: Order Comment: Speci men Type: BLOOD SPECIMENOrdering Facility: [facility] Address: [address] [place] [address] Result Comment: No s erological evidence of immunity to Hepatitis B Virus. Performed By: #### 5 195-3, 88866-3, 34325-7 ####[facility] LABCLIA [id number] [place] [address] [place] HBV surface Ag Ser Qlon HBV surface Ag Ql (S) Negative Normal Negative [facility] Comment on above: Order Comment: Speci men Type: BLOOD SPECIMENOrdering Facility: [facility] Address: [address] [place] [address] Performed By: #### 5 195-3, 15337-4, 42787-0 ####[facility] LABCLIA [id number] SERGIO CROSS [address] [address] [place] Laboratory - Hematology and Cell countson 11-07-2024 Hemoglobin Ql (U) Trace-intact Abnormal Negative [facility] Laboratory - Urinalysison Protein Ql (U) Negative Negative mg/dL [facility] No Panel Informationon 11-07 IMPRESSION: THE LOWEST Z-SCORE IS -2.5 IN THE SPINE 1) DIAGNOSIS (based on BMD alone): BELOW THE EXPECTED RANGE FOR AGE -Caution: medical conditions other than osteoporosis may cause low bone density, such as osteomalacia or renal osteodystrophy. Clinical correlation is necessary. 2) FRACTURE RISK (based on BMD alone): Fracture data based solely on BMD is not available in this age group to make this assessment. However, fracture risk may be increased independent of BMD, particularly in patients taking corticosteroids or patients with a prior fragility fracture. RECOMMENDATIONS: Follow-up as clinically indicated. Patients that are taking corticosteroids, are transplant recipients or have hyperparathyroidism should have annual follow-up. Follow-up scans should always be done on the same machine for accurate comparison. FOR MORE INFORMATION ABOUT DIAGNOSIS AND TREATMENT: [facility] Center for Osteoporosis and Metabolic Bone Disease:? [email or web address]/[email or web address] s/osteo National Osteoporosis Foundation:? www.nof.org International Society of Clinical Densitometry www.iscd.org Running Instructor: sens Transcribe Date/Time: Nov 07 2024 11:19A Dictated by : ASHLEY VEGA MD This examination was interpreted and the report reviewed and electronically signed by: ASHLEY VEGA MD on Nov 07 2024 9:08PM [place] DIVISION OF RADIOLOGY Radiology Study observation (narrative) [facility] BILIRUBIN UA (POCT) Negative Negative [facility] CLARITY UA (POCT) Slightly Cloudy Cl [facility] COLOR UA (POCT) Light yellow [facility] GLUCOSE UA (POCT) Negative Negative mg/dL [facility] Interpretation and review of laboratory results Abnormal [facility] KETONE UA (POCT) Negative Negative mg/dL [facility] LEUKOCYTES UA (POCT) Negative Negative [facility] NITRITE UA (POCT) Negative Negative [facility] PH UA (POCT) 7 4.5 - 8.0 [facility] SPECIFIC GRAVITY UA (POCT) 1.02 1.005 - 1.030 [facility] UROBILINOGEN UA (POCT) 0.2 Normal E.U./dL [facility] Location:[facility], [address] [place] [address], [address] [place] [address] POINT OF CARE [facility] No Panel InformationOrdered By: Ccf Provider on 11-07-2024 [facility] TPMT PHENOTYPE/ENZYME ACTIVI TYon 11-07-2024 TPMT ACTIVITY 20.2 U/mL Low 24.0-44.0 [facility] Comment on above: Order Comment: Speci men Type: BLOOD SPECIMENOrdering Facility: [facility] Address: [address] [place] [address] Result Comment: INTE RPRETIVE INFORMATION: Thiopurine Methyltransferase, RBCNormal TPMT activity:24.0-44.0 U/mL................Individuals are predicted to be atlow risk of bone marrow toxicity (myelosuppression) as aconsequence of standard thiopurine therapy; no dose adjustment isrecommended.Intermediate TPMT activity:17.0-23.9 U/mL................Individuals are predicted to be atintermediate risk of bone marrow toxicity (myelosuppression) as aconsequence of standard thiopurine therapy; a dose reduction andtherapeutic drug management is recommended.Low TPMT activity:less than 17.0 U/mL...........Individuals are predicted to be athigh risk of bone marrow toxicity (myelosuppression) as aconsequence of standard thiopurine dosing. It is recommended toavoid the use of thiopurine drugs.High TPMT activity:greater than 44.0 U/mL........Individuals are not predicted to beat risk for bone marrow toxicity (myelosuppression) as aconsequence of standard thiopurine dosing, but may be at risk fortherapeutic failure due to excessive inactivation of thiopurinedrugs. Individuals may require higher than the normal standarddose. Therapeutic drug management is recommended.The TPMT, RBC assay is used as a screen to detect individuals withlow and intermediate TPMT activity who may be at risk formyelosuppression when exposed to standard doses of thiopurines,including azathioprine (Imuran) and 6-mercaptopurine (Purinethol).TPMT is the primary metabolic route for inactivation of thiopurinedrugs in the bone marrow. When TPMT activity is low, it ispredicted that proportionately more 6-mercaptopurine can beconverted into the cytotoxic 6-thioguanine nucleotides thataccumulate in the bone marrow causing excessive toxicity. Theactivity of TPMT is measured by the nanomoles of6-methylmercaptopurine (inactive metabolite) produced per 1 mL ofpacked red blood cells, (U/mL).TPMT phenotype testing does not replace the need for clinicalmonitoring of patients treated with thiopurine drugs. Genotype forTPMT cannot be inferred from TPMT activity (phenotype). Phenotypetesting should not be requested for patients currently treatedwith thiopurine drugs. Current TPMT phenotype may not reflectfuture TPMT phenotype, particularly in patients who received bloodtransfusion within 30-60 days of testing. TPMT enzyme activitycan be inhibited by several drugs such as: naproxen (Aleve),ibuprofen (Advil, Motrin), ketoprofen (Orudis), furosemide(Lasix), sulfasalazine (Azulfidine), mesalamine (Asacol),olsalazine (Dipentum), mefenamic acid (Ponstel), thiazidediuretics, and benzoic acid inhibitors. TPMT inhibitors maycontribute to falsely low results; patients should abstain fromthese drugs for at least 48 hours prior to TPMT testing. Falselylow results may also occur as a result of inappropriate specimenhandling and hemolysis.This test was developed and its performance characteristicsdetermined by [facility]. It has not been cleared orapproved by the US Food and Drug Administration. This test wasperformed in a CLIA certified laboratory and is intended forclinical purposes.Performed By: [facility] [place], [place] [id number] Director: Hugo Ramsey MD, PhDCLIA Number: [id number] Performed By: #### P PRENZ ####[facility] LabsIA [id number] [place] [address] VITAMIN B12on 11-07-2024 Cobalamin (Vitamin B12) [Mass/Vol] 423 pg/mL 232 - 1245 pg/mL [facility] Vit B12 SerPl-mCncon 025 Cobalamin (Vitamin B12) [Mass/Vol] 423 pg/mL Normal 232-1245 [facility] Comment on above: Order Comment: Speci men Type: BLOOD SPECIMENOrdering Facility: [facility] Address: [address] [place] [address] Performed By: #### 2 132-9 ####[facility] LABCLIA [id number] [place] [address] [place] Bacteria Bld Culton 10-29-19 25 Bacteria identified Cx Nom (Bld) CULTURE, BLOOD: No growth 5 days GRAM STAIN: This blood culture had less than the recommended 8 ml per bottle, which could decrease the sensitivity of the test. Normal [facility] Comment on above: Performed By: #### 6 00-7 ####[facility] LABCLIA [id number] [facility] [address] [place] Bacteria identified Cx Nom (Bld) CULTURE, BLOOD: No growth 5 days Normal [facility] Comment on above: Performed By: #### 6 00-7 ####[facility] LABCLIA [id number] [place] [address] [place] CBC W Auto Differential pane l (Bld)on 10-28-2024 Basophils (Bld) [#/Vol] 0.06 10*3/uL Normal <0.11 [facility] Comment on above: Order Comment: Speci men Type: BLOOD SPECIMENOrdering Facility: [facility] Address: [address] [place] [address] Performed By: #### 5 7021-8 ####[facility] LABCLIA [id number] [place] [address] [place] Basophils/100 WBC (Bld) 0.6 % Normal [facility] Comment on above: Order Comment: Speci men Type: BLOOD SPECIMENOrdering Facility: [facility] Address: [address] [place] [address] Performed By: #### 5 7021-8 ####[facility] LABCLIA [id number] [place] [address] [place] Differential cell count method Nom (Bld) Auto Normal [facility] Comment on above: Order Comment: Speci men Type: BLOOD SPECIMENOrdering Facility: [facility] Address: [address] [place] [address] Performed By: #### 5 7021-8 ####[facility] LABCLIA [id number] [place] [address] [place] Eosinophils (Bld) [#/Vol] 0.39 10*3/uL Normal <0.46 [facility] Comment on above: Order Comment: Speci men Type: BLOOD SPECIMENOrdering Facility: [facility] Address: [address] [place] [address] Performed By: #### 5 7021-8 ####[facility] LABCLIA [id number] [place] [address] [place] Eosinophils/100 WBC (Bld) 3.6 % Normal [facility] Comment on above: Order Comment: Speci men Type: BLOOD SPECIMENOrdering Facility: [facility] Address: [address] [place] [address] Performed By: #### 5 7021-8 ####[facility] LABCLIA [id number] [place] [address] [place] Erythrocyte distribution width (RBC) [Ratio] 13.8 % Normal 11.5-15.0 [facility] Comment on above: Order Comment: Speci men Type: BLOOD SPECIMENOrdering Facility: [facility] Address: [address] [place] [address] Performed By: #### 5 7021-8 ####[facility] LABCLIA [id number] [place] [address] [place] Hematocrit (Bld) [Volume fraction] 36.7 % Normal 36.0-46.0 [facility] Comment on above: Order Comment: Speci men Type: BLOOD SPECIMENOrdering Facility: [facility] Address: [address] [place] [address] Performed By: #### 5 7021-8 ####[facility] LABCLIA [id number] [place] [address] [place] Hemoglobin (Bld) [Mass/Vol] 12.1 g/dL Normal 11.5-15.5 [facility] Comment on above: Order Comment: Speci men Type: BLOOD SPECIMENOrdering Facility: [facility] Address: [address] [place] [address] Performed By: #### 5 7021-8 ####[facility] LABCLIA [id number] [place] [address] [place] Immature granulocytes (Bld) [#/Vol] 10*3/uL Normal <0.10 [facility] Comment on above: Order Comment: Speci men Type: BLOOD SPECIMENOrdering Facility: [facility] Address: [address] [place] [address] Performed By: #### 5 7021-8 ####[facility] LABCLIA [id number] [place] [address] [place] Immature granulocytes/100 WBC (Bld) 0.2 % Normal [facility] Comment on above: Order Comment: Speci men Type: BLOOD SPECIMENOrdering Facility: [facility] Address: [address] [place] [address] Performed By: #### 5 7021-8 ####[facility] LABCLIA [id number] [place] [address] [place] Lymphocytes (Bld) [#/Vol] 2.35 10*3/uL Normal 1.00-4.00 [facility] Comment on above: Order Comment: Speci men Type: BLOOD SPECIMENOrdering Facility: [facility] Address: [address] [place] [address] Performed By: #### 5 7021-8 ####[facility] LABIA [id number] [place] [address] [place] Lymphocytes/100 WBC (Bld) 21.9 % Normal [facility] Comment on above: Order Comment: Speci men Type: BLOOD SPECIMENOrdering Facility: [facility] Address: [address] [place] [address] Performed By: #### 5 7021-8 ####[facility] [id number] [place] [address] [place] MCH (RBC) [Entitic mass] 29.1 pg Normal 26.0-34.0 [facility] Comment on above: Order Comment: Speci men Type: BLOOD SPECIMENOrdering Facility: [facility] Address: [address] [place] [address] Performed By: #### 5 7021-8 ####[facility] [id number] [place] [address] [place] MCHC (RBC) [Mass/Vol] 33.0 g/dL Normal 30.5-36.0 [facility] Comment on above: Order Comment: Speci men Type: BLOOD SPECIMENOrdering Facility: [facility] Address: [address] [place] [address] Performed By: #### 5 7021-8 ####[facility] LAB[facility] [id number] [place] [address] [place] MCV (RBC) [Entitic vol] 88.2 fL Normal 80.0-100.0 [facility] Comment on above: Order Comment: Speci men Type: BLOOD SPECIMENOrdering Facility: [facility] Address: [address] [place] [address] Performed By: #### 5 7021-8 ####[facility] LABCLIA [id number] [facility] [address] [place] [address] [place] Monocytes (Bld) [#/Vol] 0.78 10*3/uL Normal <0.87 [facility] Comment on above: Order Comment: Speci men Type: BLOOD SPECIMENOrdering Facility: [facility] Address: [address] [place] [address] Performed By: #### 5 7021-8 ####[facility] LABCLIA [id number] [facility] [address] [place] [address] [place] Monocytes/100 WBC (Bld) 7.3 % Normal [facility] Comment on above: Order Comment: Speci men Type: BLOOD SPECIMENOrdering Facility: [facility] Address: [address] [place] [address] Performed By: #### 5 7021-8 ####[facility] LABCLIA [id number] [facility] [address], [place] [address] [place] Neutrophils (Bld) [#/Vol] 7.11 10*3/uL Normal 1.45-7.50 [facility] Comment on above: Order Comment: Speci men Type: BLOOD SPECIMENOrdering Facility: [facility] Address: [address] [place] [address] Performed By: #### 5 7021-8 ####[facility] LABCLIA [id number] [facility] [address], [facility] [place] Neutrophils/100 WBC (Bld) 66.4 % Normal [facility] Comment on above: Order Comment: Speci men Type: BLOOD SPECIMENOrdering Facility: [facility] Address: [address] [place] [address] Performed By: #### 5 7021-8 ####[facility] LABCLIA [id number] [facility] [address] [place] [address] [place] Nucleated RBC (Bld) [#/Vol] 10*3/uL Normal <0.01 [facility] Comment on above: Order Comment: Speci men Type: BLOOD SPECIMENOrdering Facility: [facility] Address: [address] [place] [address] Performed By: #### 5 7021-8 ####[facility] LABCLIA [id number] [place] [address] [place] Nucleated RBC/100 WBC (Bld) [Ratio] 0.0 /100 WBC Normal [facility] Comment on above: Order Comment: Speci men Type: BLOOD SPECIMENOrdering Facility: [facility] Address: [address] [place] [address] Performed By: #### 5 7021-8 ####[facility] LABIA [id number] [place] [address] [place] Platelet mean volume (Bld) [Entitic vol] 10.8 fL Normal 9.0-12.7 [facility] Comment on above: Order Comment: Speci men Type: BLOOD SPECIMENOrdering Facility: [facility] Address: [address] [place] [address] Performed By: #### 5 7021-8 ####[facility] LABIA [id number] [place] [address] [place] Platelets (Bld) [#/Vol] 247 10*3/uL Normal 150-400 [facility] Comment on above: Order Comment: Speci men Type: BLOOD SPECIMENOrdering Facility: [facility] Address: [address] [place] [address] Performed By: #### 5 7021-8 ####[facility] LABIA [id number] [place] [address] [place] RBC (Bld) [#/Vol] 4.16 10*6/uL Normal 3.90-5.20 [facility] Comment on above: Order Comment: Speci men Type: BLOOD SPECIMENOrdering Facility: [facility] Address: [address] [place] [address] Performed By: #### 5 7021-8 ####[facility] LABIA [id number] [address] [address] [place] WBC (Bld) [#/Vol] 10.71 10*3/uL Normal 3.70-11.00 [facility] Comment on above: Order Comment: Speci men Type: BLOOD SPECIMENOrdering Facility: [facility] Address: [address] [place] [address] Performed By: #### 5 7021-8 ####[facility] LABIA [id number] [place] [address] [facility] Comprehensive metabolic 2000 panelon 10-28-2024 Albumin [Mass/Vol] 4.1 g/dL Normal 3.9-4.9 [facility] Comment on above: Order Comment: Speci men Type: BLOOD SPECIMENOrdering Facility: [facility] Address: [address] [place] [address] Performed By: #### 2 4323-8, 77383-6, 0-3 ####[facility] LABIA [id number] [place] [address] [place] ALP [Catalytic activity/Vol] 96 U/L Normal 34-123 [facility] Comment on above: Order Comment: Speci men Type: BLOOD SPECIMENOrdering Facility: [facility] Address: [address] [place] [address] Performed By: #### 2 4323-8, , 0-3 ####[facility] [id number] [address] [address] [place] ALT [Catalytic activity/Vol] 29 U/L Normal 7-38 [facility] Comment on above: Order Comment: Speci men Type: BLOOD SPECIMENOrdering Facility: [facility] Address: [address] [place] [address] Performed By: #### 2 4323-8, 94880-3, 3040-3 ####[facility] LABCLIA [id number] [address] [address] [place] Anion gap [Moles/Vol] 12 mmol/L Normal 8-15 [facility] Comment on above: Order Comment: Speci men Type: BLOOD SPECIMENOrdering Facility: [facility] Address: [address] [place], [place] [address] Performed By: #### 2 4323-8, , 3 ####[facility] LABCLIA [id number] [address] [address] [place] AST [Catalytic activity/Vol] 22 U/L Normal 13-35 [facility] Comment on above: Order Comment: Speci men Type: BLOOD SPECIMENOrdering Facility: [facility] Address: [address] [place], [place] [address] Performed By: #### 2 4323-8, , 3 ####[facility] LABCLIA [id number] [address] [address] [place] Bilirubin [Mass/Vol] 0.2 mg/dL Normal 0.2-1.3 [facility] Comment on above: Order Comment: Speci men Type: BLOOD SPECIMENOrdering Facility: [facility] Address: [address] [place] [address] Performed By: #### 2 4323-8, , 3 ####[facility] LABCLIA [id number] [address] [address] [place] Calcium [Mass/Vol] 9.1 mg/dL Normal 8.5-10.2 [facility] Comment on above: Order Comment: Speci men Type: BLOOD SPECIMENOrdering Facility: [facility] Address: [address] [place] [address] Performed By: #### 2 4323-8, , 3039-3 ####[facility] LABCLIA [id number] [place] [address] [place] Chloride [Moles/Vol] 102 mmol/L Normal 98-107 [facility] Comment on above: Order Comment: Speci men Type: BLOOD SPECIMENOrdering Facility: [facility] Address: [address] [place] [address] Performed By: #### 2 4323-8, 02252-7, 0-3 ####[facility] LABIA [id number] [place] [address] [place] CO2 [Moles/Vol] 23 mmol/L Normal 22-30 [facility] Comment on above: Order Comment: Speci men Type: BLOOD SPECIMENOrdering Facility: [facility] Address: [address] [place] [address] Performed By: #### 2 4323-8, 45864-1, 0-3 ####[facility] LABIA [id number] [place] [address] [place] Creatinine [Mass/Vol] 0.51 mg/dL Low 0.58-0.96 [facility] Comment on above: Order Comment: Speci men Type: BLOOD SPECIMENOrdering Facility: [facility] Address: [address] [place] [address] Performed By: #### 2 4323-8, 26618-0, 3039-3 ####[facility] LABIA [id number] [place] [address] [place] Creatinine and Glomerular filtration rate.predicted panel (S/P/Bld) 123 mL/min/1.73m??? Normal >=60 [facility] Comment on above: Order Comment: Speci men Type: BLOOD SPECIMENOrdering Facility: [facility] Address: [address] [place] [address] Result Comment: Desiree mated Glomerular Filtration Rate (eGFR) is calculated using the 2020 CKD-EPI creatinine equation. This equation utilizes serum creatinine, sex, and age as parameters. The creatinine assay has traceable calibration to isotope dilution-mass spectrometry. Refer to KDIGO guidelines for clinical interpretation. In patients with unstable renal function, e.g. those with acute kidney injury, the eGFR may not accurately reflect actual GFR. Performed By: #### 2 4323-8, , 3039-3 ####[facility] LABCLIA [id number] [employer] [id number], [place] [address] [place] Glucose [Mass/Vol] 72 mg/dL Low 74-99 [facility] Comment on above: Order Comment: Elfego pollock Type: BLOOD SPECIMENOrdering Facility: [facility] Address: [address] [place] [address] Result Comment: The [place] Diabetes Association (ADA) provides guidance for cutoff values for fasting glucose and random glucose. The ADA defines fasting as no caloric intake for at least 8 hours. Fasting plasma glucose results between 100 to 125 mg/dL indicate increased risk for diabetes (prediabetes).Fasting plasma glucose results greater than or equal to 126 mg/dL meet the criteria for diagnosis of diabetes. In the absence of unequivocal hyperglycemia, results should be confirmed by repeat testing. In a patient with classic symptoms of hyperglycemia or hyperglycemic crisis, random plasma glucose results greater than or equal to 200 mg/dL meet the criteria for diagnosis of diabetes.Reference: Standards of Medical Care in Diabetes 2016, [place] Diabetes Association. Diabetes Care. 2016.39(Suppl 1). Performed By: #### 2 4323-8, , 3 ####[facility] LABCLIA [id number] [employer] [facility]SA[facility]IME [facility] [id number] [address] [place] Potassium [Moles/Vol] 4.0 mmol/L Normal 3.7-5.1 [facility] Comment on above: Order Comment: Elfego pollock Type: BLOOD SPECIMENOrdering Facility: [facility] Address: [address] [place] [address] Performed By: #### 2 432-8, , 3 ####[facility] LABCLIA [id number] [employer] [address] [id number], [place] [address] [place] Protein [Mass/Vol] 7.0 g/dL Normal 6.3-8.0 [facility] Comment on above: Order Comment: Speci men Type: BLOOD SPECIMENOrdering Facility: [facility] Address: [address] [place] [address] Performed By: #### 2 4323-8, 72295-7, 0-3 ####[facility] LABCLIA [id number] [place] [address] [place] Sodium [Moles/Vol] 137 mmol/L Normal 136-144 [facility] Comment on above: Order Comment: Speci men Type: BLOOD SPECIMENOrdering Facility: [facility] Address: [address] [place] [address] Performed By: #### 2 4323-8, , 3039-3 ####[facility] LABCLIA [id number] [place] [address] [place] Urea nitrogen [Mass/Vol] 23 mg/dL High 7-21 [facility] Comment on above: Order Comment: Speci men Type: BLOOD SPECIMENOrdering Facility: [facility] Address: [address] [place] [address] Performed By: #### 2 4323-8, , 3 ####[facility] LABCLIA [id number] [place] [address] [place] ED PROV NOTEon 10-28-2024 ED PROV NOTE Normal [facility] Lipase SerPl-cCncon 10-29-19 25 Lipase [Catalytic activity/Vol] 25 U/L Normal 16-61 [facility] Comment on above: Order Comment: Speci men Type: BLOOD SPECIMENOrdering Facility: [facility] Address: [address] [place] [address] Performed By: #### 2 4323-8, 60655-5, 3039-3 ####[facility] LABCLIA [id number] [place] [address] [place] Magnesium SerPl-mCncon 10-28 Magnesium [Mass/Vol] 2.1 mg/dL Normal 1.7-2.3 [facility] Comment on above: Order Comment: Speci men Type: BLOOD SPECIMENOrdering Facility: [facility] Address: [address] [place] [address] Performed By: #### 2 4323-8, 10473-5, 3040-3 ####[facility] LABCLIA [id number] [place] [address] [place] SEPSIS LACTATE W/ REFLEX (IN ITIAL)on 10-28-2024 Lactate [Moles/Vol] 1.3 mmol/L Normal <=2.0 [facility] Comment on above: Order Comment: Speci men Type: BLOOD SPECIMENOrdering Facility: [facility] Address: [address] [place] [address] Performed By: #### S LACTR ####[facility] LABIA [id number] [place] [address] [place] Urinalysis complete panel (U )on 10-28-2024 Bacteria LM.HPF (Urine sed) [#/Area] Negative Normal Negative [facility] Comment on above: Order Comment: Speci men Type: URINE SPECIMENOrdering Facility: [facility] Address: [address] [place] [address] Performed By: #### 2 4356-8 ####[facility] LABCLIA [id number] [place] [address] [place] Bilirubin Ql (U) Negative Normal Negative [facility] Comment on above: Order Comment: Speci men Type: URINE SPECIMENOrdering Facility: [facility] Address: [address] [place] [address] Performed By: #### 2 4356-8 ####[facility] LABCLIA [id number] [place] [address] [place] Clarity (Unsp spec) Clear Normal Clear [facility] Comment on above: Order Comment: Speci men Type: URINE SPECIMENOrdering Facility: [facility] Address: [address] [place] [address] Performed By: #### 2 4356-8 ####[facility] LABCLIA [id number] [facility] [address] [place] [address] [place] [facility] Color (U) Yellow Normal Yellow [facility] Comment on above: Order Comment: Speci men Type: URINE SPECIMENOrdering Facility: [facility] Address: [address] [place] [address] Performed By: #### 2 4356-8 ####[facility] LABCLIA [id number] [address], [facility] [place] Epithelial cells LM.HPF (Urine sed) [#/Area] Few Normal [facility] Comment on above: Order Comment: Speci men Type: URINE SPECIMENOrdering Facility: [facility] Address: [address] [place] [address] Performed By: #### 2 4356-8 ####[facility] LABCLIA [id number] [facility] [address] [place] [address] [place] [address] [facility] Glucose Test strip (U) [Mass/Vol] Negative Normal Negative [facility] Comment on above: Order Comment: Speci men Type: URINE SPECIMENOrdering Facility: [facility] Address: [address] [place] [address] Performed By: #### 2 4356-8 ####[facility] LABCLIA [id number] [facility] [address] [place] [address] [place] Hemoglobin Ql (U) Negative Normal Negative [facility] Comment on above: Order Comment: Speci men Type: URINE SPECIMENOrdering Facility: [facility] Address: [address] [place] [address] Performed By: #### 2 4356-8 ####[facility] LABCLIA [id number] [facility] [address] [place] [address] [place] Hyaline casts (Urine sed) [#/Area] 0 /[LPF] Normal 0 /LPF [facility] Comment on above: Order Comment: Speci men Type: URINE SPECIMENOrdering Facility: [facility] Address: [address] [place] [address] Performed By: #### 2 4356-8 ####[facility] LABCLIA [id number] [address], [facility] [place] Ketones Ql (U) Negative Normal Negative [facility] Comment on above: Order Comment: Speci men Type: URINE SPECIMENOrdering Facility: [facility] Address: [address] [place] [address] Performed By: #### 2 4356-8 ####[facility] LABCLIA [id number] [address], [place] [address] [place] Leukocyte esterase Test strip Ql (U) Negative Normal Negative [facility] Comment on above: Order Comment: Speci men Type: URINE SPECIMENOrdering Facility: [facility] Address: [address] [place] [address] Performed By: #### 2 4356-8 ####[facility] LABCLIA [id number] [place] [address] [place] Nitrite Ql (U) Negative Normal Negative [facility] Comment on above: Order Comment: Speci men Type: URINE SPECIMENOrdering Facility: [facility] Address: [address] [place] [address] Performed By: #### 2 4356-8 ####[facility] LABCLIA [id number] [address], [facility] [place] pH (U) 6.5 [pH] Normal <8.5 [facility] Comment on above: Order Comment: Speci men Type: URINE SPECIMENOrdering Facility: [facility] Address: [address] [place] [address] Performed By: #### 2 4356-8 ####[facility] LABCLIA [id number] [place] [address] [place] Protein (U) [Mass/Vol] Negative Normal Negative [facility] Comment on above: Order Comment: Speci men Type: URINE SPECIMENOrdering Facility: [facility] Address: [address] [place] [address] Performed By: #### 2 4356-8 ####[facility] LABIA [id number] [place] [address] [place] RBC LM.HPF (Urine sed) [#/Area] 0-2 /HPF Normal 0-2 /HPF [facility] Comment on above: Order Comment: Speci men Type: URINE SPECIMENOrdering Facility: [facility] Address: [address] [place] [address] Performed By: #### 2 4356-8 ####[facility] LABIA [id number] [place] [address] [place] Specific gravity (U) [Rel density] 1.029 Normal 1.005-1.030 [facility] Comment on above: Order Comment: Speci men Type: URINE SPECIMENOrdering Facility: [facility] Address: [address] [place] [address] Performed By: #### 2 4356-8 ####[facility] LABIA [id number] [place] [address] [place] Urobilinogen Ql (U) 0.2 EU/dL Normal 0.2-1.0 EU/dL [facility] Comment on above: Order Comment: Speci men Type: URINE SPECIMENOrdering Facility: [facility] Address: [address] [place] [address] Performed By: #### 2 4356-8 ####[facility] LABIA [id number] [place] [address] [place] WBC LM.HPF (Urine sed) [#/Area] 0-5 /HPF Normal 0-5 /HPF [facility] Comment on above: Order Comment: Speci men Type: URINE SPECIMENOrdering Facility: [facility] Address: [address] [place] [address] Performed By: #### 2 4356-8 ####[facility] LABCLIA [id number] [place] [address] [place] XR CHEST 1V FRONTAL PORTon 0 10-28-2024 XR CHEST 1V FRONTAL PORT Normal [facility] CNPNon 10-27-2024 CNPN Normal [facility] CNPNon 10-26-2024 CNPN Normal [facility] CNPNon 10-25-2024 CNPN Normal [facility] CNPNon 10-24-2024 CNPN Normal [facility] CNPNon 10-20-2024 CNPN Normal [facility] Coding Summaryon 10-02-2024 Coding Summary HTMLBase 64 WnuvbsnpWUc7xWe+PGhl YWQ+XA7YIVRjT35buLPq vM1jA3CMUSvKKohkVXDH SEkADqJdwiPhAX9fsQCr ZXJu IC8+BC4iZEIiSqrjaXUl l4D1eOD8S92ptq5wYZho pKC7IZQoAnClquehc9tp lYi5HQnjNhilWyYl EVGhxR30OPS2dW66Qn06 yRHzcHKxo0wrzTy2RlLa NJMrADV1qCydRBhiq8Bw UMUxH85aqBLiu1C9 IGNvbGxhcHNlOyBlbXB0 oD3jXBkeyyxrt8sxghqd Pzs4qu55iAZmg6S4xXG3 D1RkfyC8KCDypQIc BtndcUNOuI0kcvamv7sl iplnCqAnVZXbNWk2VEp4 YIHfdBtbQwJaWT45JLE7 AQZbnsPwB4MpDEPg nNpyJxW6u5Y0Pk5TQ4XG DaxcB5IRYRWXUVnfyVN+ XP89zb20R5NhNdiiNft0 QBOlZKW0qFV9kW9y JNAsOSmqm3A1jJX0W9Uk haNfmc7qo4ttKSMoGRws K71umBLix4Z1LARcsMF9 DLXkgXnlHyJbkN77 Oyc+ORTedFtth9UfZzlz k6lel3gmmJs9RnyrQCUi ioFggAiwTRN7x3LwEc9t RWWcwGY7aYH3gK6v ApSzXtC7KKdpI109NcQi pYWyTucrG78tY0XkyVV+ INBlIfo4VIVtvDyzUD5i C6AmCEQeydrluAXc vDsjIN1lOBRgxjexPSVz zA9bRSZkP6p3LvMpZsO9 ONpkP8NzNUGsnkspMz34 pA5gXqZaFzB5CLhb C7DdjyX0NMQggBXdEDyw KBR3T71mf3Y7GLMlEWZy BJB7uHZ5uS7adMfaokkt bGVmdDsgdmVydGlj UFfuAEdeV224TXPycGxz PkNvZGluZyBEYXRlOiAg MDMvMzEvMjAyNTwvdGQ+ WYPhFMS7lVajGJWi wMXrTYyhLh9hdXxntHfg MH8tZYMvtrutGNPlqD5e GCCnnHWylWccZI1gDCVo enfmk852ZuVrUTR6 JFWqhDEmG2LsrP1fPuRn SYYgKFCqO1RbkCWhCPbr S124NMysZqY0KSMcfeTt Q8QfYBSliVelSuO7 x4Y7Na1Ck2FnlbbjX6Mo sYZkIzFjTjzsXXn3Q6Qb PjwvdHI+BY96PTQmGF84 KYb4UMV6vDjdYFss TKAgR5ZllR8yEoLtWIDh ZGRkOyc+PHRhYmxlIHdp ZHRoPScxMDAlJyBzdHls SA9aAl9bIFQwQWOc wWcrkPGjVfNpx0xhDQZg RVlxPL9dkMgvI3CrdSV7 XOTyh8o4Ka88J38pS7Sv dXA+LBMaiER5gSF0 xX9aQsTrDrR6SUnnX786 PpGltKWzYjqyz0ysp3rc hRx2SlD3OPPczqMnsWbr TYI3f3LwDj68J22m IHdpZHRoPSIxNSUiIHZh oXqpmn0vsA0aNj3+PGNv ePY0tSN3fI0bGmUbTiC4 VKxfU240DrCfiJAa Teqzn9qgr6nrtBd2QgGt XASzwpNfcKhvXWB9k6Ob Vp69G2WwbXqxq4AnUky1 qy60wVRkz2R2oXA5 M6PzPVUnqekfxWHovXkw GQ0fLUSegayyBVWbrC5o XLVhB4y7UeTwYtF9MRms P6ZsroF1GNSmuAXh XVTebRNBmE6gxnjuy9kt oivaZrCvCLOjQNh0MLl4 MDDlyXhoRxYtESZ6WuA5 KGL4gJOvbG0ktEgo hvuxrN5kBgt+RJK8pZCi qDZECK6wWtpyySE+PHRk BQY5iDogOLskDHUnwT9t CKKeB5b0YvLxZfK0 LSpvG5KvayL5ITLmgNKh SMNteURAtA4kwgunr1mw irbiZjEjXCQfKHl1ORl3 LWFsaWduOiBsZWZ0 YpP8YQI1bDFthN3juBns hxpxlG7bTum+QmlydGgg XXZ2SAe1A1AvVrr4EAOq lVosXP6qoVIwSUgr Wz1lvVicxBwtUO8wMVZw bhazw868WeKgt3hmAXUz rFFuZJidJXR6P97iy0M9 QKSnHUGyZDH6oNR2 uE0hvWnyydoqcNLfbEpi kzUfdBvsXRcwEYezA017 UZCyzBmaGbXjFRh9V8Ya Gtk5HPNmlBrnTK5f gBApYQarOi1wvUimxLpv KT9rMUDqyzarx394CqBb l0oaPFNzdIFxSUkvBPS3 P63gi8T1YVMjHTUt ZWO5pVV4dL2ufRzgifvp bGVmdDsgdmVydGljYWwt RZwdQ258TPAwkKufZgJz lVu2C5ClRxq7YFYf qSltNW3gbCXjLRlmYb7w gTcajNehDW8pXGVlycoi g680HwIaq2hjHFPsjBOf FMinPOI2Z67az6I6 ZXWlKHZaVOM4xBU5cD3d bGlnbjogbGVmdDsgdmVy lYdeJMoyUOroT082PETd cDsnPlBhdGllbnQg FKfrILn2R1OuApneuKR+ QI63EYMrGX69bAQlqKDx r9qtzCf3LbLmRZCtANU7 rPreTJtwn7KbVCMe Y74vpJHgl4C8DDWwaIvp uKTsZfNhsRE9rC3wTBlm yojtk6gibzofGytul2gf fb95aK63U14fCGot ZHRoPSIzMCUiIHZhbGln zz6ysN2nHj8+PGNvbCB3 dCH6tV8dCUGxPpJ5LWbg K650AmTsiUOlDsrt o5owg8vegPv2RsQ5QIKs mpCbfShcIUS6c9WfOj36 N07dJNrmKDXeQRNpWZNo VPQkpGnuis8kwB4h Ii8+TUZinHI2rQC9aC6a ApNrNqB0EKxuX965OdVd uKAaIwskN38oS2BubPE+ YCKkUkj3FXQpjXva YA4euLYnQUjlBp7aRTN6 HcXvFnNiISqiV3JoUARg hzxvfgmnzTC2KCHkLHEk vW49Wy2dpSuwJRPp yJFHzZ7rwgdng9jktapg ZnYlAETzXTs6LTf9ADBh uUbgKuUmECD3MbA9JVB8 dBOabM6mkHnbyiwl jV3pN5OfXOIxtffmYl94 tZ8iJtYuTgF1GEmsQsq+ MsZSDC4NMYZCOBrPRQBI ZS35VO03uBWyj0T0 pAF5Y2EbPQSkksvkmwmy yNU9RNGfPSWgpN63bOVn ZNafUs8yi9K5o339JFMw GOLsaW71Ft8meRhu QXFsiYEVeY6tvwmuf0id fkcpLqFxWRYrCBn5CAt3 EEAsbZkzDmObRUF4WoZ6 UII4bUDzyN4bmCue hesmbO7vXtg+MDMvMTEv TFb8ZKftaLO+PHRkIHN0 lZymDVvlSXFmtS5kBYAg Q7w4YsTqLeO9FSph P8PcVGEtzbslMf23pG0j KsKbJyN5AFtoJ5OfkiN8 ABAekNFbNZelVRA3S05y s3M2EBNuZHZwTKQ8 bTN2bB6kpTkvjvsypJBx dDsgdmVydGljYWwtYWxp F044TJEnzIypLdB3UVsu YLIbOY53DQ52hRKj b3U1wVQ3Y6HmVLCpfpzu muxddXU4XENkCBLoaK64 fUQcTAssVa1jw4K5y936 YHOuLOBsfO45Im4j sSscLADyoURElP3oilwp h1zluetvVwRtVYAzVCt9 QXu1IXJyzKsnEeEgLPF0 ItC2PDN6vXRxpA7w qFlcuvmtkB1nIoy+RkVN ULzAPY56JO01zTBtr8L0 sCR5L7IhGSArsrrozlpq qWJ9ICYxELVxhF72 fYYrAWbsNn3ub9N8w855 NXKrKKKpkA80Oi3urGfk NDXnwYDQjQ2wesunw9kx cjogIzAwMDAwMDt0 FTm1QFHoxEybEdYqXJT5 NeF9PAO7sCJjbW9geTjz iyvzaW8pXtv+I5T6O1Lv PjwvdHI+AS73PHZf NV66lEQpmFFox9uvwRf3 QqVyPGHcYBQ5gClpOJpp c7KlBLUeB00itLZiz5F6 IGNvbGxhcHNlOyBl zIU9zM8lARpqjvycj6jr fdquLrlzw9rbez51aH49 H58wZAjvHZTjYNTpKJUq QZAoaLkkyi5clN2c Ii8+HXQkdEN8sHM4mU3n PbAsGqR3NWwjM866NhJw gUYiOfzmw9xcu3rseXf9 IjIwJSIgdmFsaWdu VHR7o6WqNk59C98xUKou ZHRoPSIyMCUiIHZhbGln pt6vhP3bQi4+YI6bz8jc ug76lE54aEQ+PHRk RDR3tNawRFcrDDDijO4x SEoqRsC6OASxTfWnzZ29 hGHbZIfxUs8dgWnblZtr CP3kBEWabjdep141 QaQim2tuFROnfVEeIBbs MAE0D54qk1W9OCMoCEOq ACJ4aZF0lY5kwIvgwhlr bGVmdDsgdmVydGlj KUqlIJmzB824DPKkeTuy JnCbvARfP3vdmlAMES0f OjwvdGQ+IIXnWVJ7yMsw LRanGPMnjS8bXKZj U5y4NqGyQrH3SAiwM0Cf liU0QHUskLRdRCDxsLLP zV5qvowlt2hnqfgnQiZs SFHwKAv9SEw0WJVo pCxvEeBoOYI3HiZ7YDW5 hHJkcS2moEztdqfiyY3q Oyc+RklOOjwvdGQ+PHRk EOA3uTotCSxoUCGr nC0qDIMhC9x7NjYiWkQ5 PCchS4BhgaB8OFIkuASi KPSahHPDfI4xbrhfr2cw cjogIzAwMDAwMDt0 ICt5WYYyoUgwUdFrSZV2 QhA0VWO7kJCecT3imQzp jifhnL3kYaj+TVJOOjwv dGQ+ELUkJPG8vJdu RQmhMPAhrR1rCBBxJ5v1 YkMrZzY2GMzlE6AfcvL3 GEBneZUeFBFtbMPZzV3l yhenj0vjftqdAmBa LSZvXBn7XTx1YJFvbBob NiVqVTN7OaT7TQE2lFWg gJ8akCobydwhhI9pMtv+ FUG9FIX8TJ51SB12 W8DkEzpvwZZrdHQ+PHRh YmxlIHdpZHRoPScxMDAl KhWsoAzyRA5uKz6gDXLo LWNvbGxhcHNlOiBj b2x (more content not included)... Normal [facility] .Auto Diff 09-27-2024 [place] % 8 % Normal 07-16 [facility] Comment on above: Performed By: #### 1 [id number] #### [facility] (DEFAULT) [address] [place] [address] 70418 Baso Abs# 0.0 x10 Normal 0.0-0.2 [facility] Comment on above: Performed By: #### 1 [id number] #### [facility] (DEFAULT) [address] [place] [address] 22014 Basophils/100 WBC (Bld) 1.1 % Normal 0.2-2.0 [facility] Comment on above: Performed By: #### 1 [id number] #### [facility] (DEFAULT) [address] [place] [address] 74696 Eos Abs# 0.1 x10 Normal 0.0-0.4 [facility] Comment on above: Performed By: #### 1 [id number], [id number], [id number], [id number] #### [facility] (DEFAULT) [address] [place] [address] 61413 Eosinophils/100 WBC (Bld) 3.8 % Normal 0.9-4.0 [facility] Comment on above: Performed By: #### 1 [id number], [id number], [id number], [id number] #### [facility] (DEFAULT) [address] [place] [address] 25994 Lymph Abs# 0.8 x10 Low 1.3-2.9 [facility] Comment on above: Performed By: #### 1 [id number], [id number], 3648548, [id number], 4579405 #### [facility] (DEFAULT) [address] [place] [address] 95759 Lymphocytes/100 WBC (Bld) 26 % Normal 14-48 [facility] Comment on above: Performed By: #### 1 1535130, 5929121, 6686330, 1489704, 0782927552, 3081485 #### [facility] (DEFAULT) [address] [place] [address] [place] Abs# 0.3 x10 Normal 0.0-0.8 [facility] Comment on above: Performed By: #### 1 9059789, 8145449, 5526655, 4572622, [id number], 3830920 #### [facility] (DEFAULT) [address] [place] [address] 59769 Neut Abs# 2.0 x10 Normal 1.5-9.2 [facility] Comment on above: Performed By: #### 1 9734916, 2171431, 3890331, 7633455, 9061854249, 5880664 #### [facility] (DEFAULT) [address] [place] [address] Neutrophils/100 WBC (Bld) 61 % Normal 44-88 [facility] Comment on above: Performed By: #### 1 5817057, 2101312, 1555573, 2077720, 8442415843, 9228653 #### [facility] (DEFAULT) [address] [place] [address] CBC w/ Auto Diffon Erythrocyte distribution width (RBC) [Ratio] 17.2 % High 11.5-15.0 [facility] Comment on above: Performed By: #### 1 6887414, 2328915, 2503660, 3280119, 6967539771, 3968290 #### [facility] (DEFAULT) [address] [place] [address] Hematocrit (Bld) [Volume fraction] 29.7 % Low 33.7-40.4 [facility] Comment on above: Performed By: #### 1 6811004, 4202939, 5602686, 5426529, 9366425997, 8073282 #### [facility] (DEFAULT) [address] [place] [address] Hemoglobin (Bld) [Mass/Vol] 9.9 g/dL Low 11.3-15.9 [facility] Comment on above: Performed By: #### 1 1130204, 5265917, 5623158, 4805320, 8592346556, 0646106 #### [facility] (DEFAULT) [address] [place] [address] Man Diff? Auto Invalid Interpretation Code [facility] Comment on above: Performed By: #### 1 9286277, 8732900, 0281708, 8413821, 3762843593, 8752690 #### [facility] (DEFAULT) [address] [place] [address] MCH (RBC) [Entitic mass] 30 pg Normal 24-34 [facility] Comment on above: Performed By: #### 1 9600246, 0683461, 1809009, 4499627, 4845434828, 5990916 #### [facility] (DEFAULT) [address] [place] [address] MCHC (RBC) [Mass/Vol] 33 g/dL Normal 26-37 [facility] Comment on above: Performed By: #### 1 1660133, 9127357, 1485123, 2906931, 7864813080, 9069862 #### [facility] (DEFAULT) [address] [place] [address] MCV (RBC) [Entitic vol] 90 fL Normal 81-100 [facility] Comment on above: Performed By: #### 1 8972537, 9034205, 0263766, 4694664, 0040786372, 9664528 #### [facility] (DEFAULT) [address] [place] [address] Platelet 139 x10 Normal 138-427 [facility] Comment on above: Performed By: #### 1 9260950, 8325888, 6215932, 5587050, 8125804480, 3922430 #### [facility] (DEFAULT) [address] [place] [address] Platelet mean volume (Bld) [Entitic vol] 9.7 fL Normal 6.3-10.2 [facility] Comment on above: Performed By: #### 1 8704852, 4244694, 5234488, 4052298, 3598230455, 0527173 #### [facility] (DEFAULT) [address] [place] [address] RBC 3.29 x10 Low 3.70-5.30 [facility] Comment on above: Performed By: #### 1 2339350, 0791783, 5450399, 8317837, 0730089472, 8324572 #### [facility] (DEFAULT) [address] [place] [address] WBC 3.2 x10 Low 3.5-10.5 [facility] Comment on above: Performed By: #### 1 2695823, 1608797, 1265365, 1355303, 8053038391, 3733879 #### [facility] (DEFAULT) [address] [place] [address] CMP Standardon 09-27-2024 eGFR Non AA >60 Invalid Interpretation Code [facility] Comment on above: Performed By: #### 1 9533772, 4605362, 6653216, 5560699, 3516913363, 1846110 #### [facility] (DEFAULT) [address] [place] [address] eGFR AA >60 Invalid Interpretation Code [facility] Comment on above: Performed By: #### 1 6092450, 8748410, 7173720, 9219749, 2308746774, 1544439 #### [facility] (DEFAULT) [address] [place] [address] Albumin [Mass/Vol] 3.3 g/dL Low 3.5-5.0 [facility] Comment on above: Performed By: #### 1 8726417, 5192760, 7688681, 1931418, 1071422240, 7722552 #### [facility] (DEFAULT) [address] [place] [address] Alk Phos 68 IU/L Normal 32-91 [facility] Comment on above: Performed By: #### 1 5566263, 0385269, 0578022, 3741693, 9567129050, 0448196 #### [facility] (DEFAULT) [address] [place] [address] ALT [Catalytic activity/Vol] 47.0 U/L Normal 14.0-54.0 [facility] Comment on above: Performed By: #### 1 8737926, 7024848, 9188555, 2508153, 9087610836, 8436992 #### [facility] (DEFAULT) [address] [place] [address] AST [Catalytic activity/Vol] 33 U/L Normal 15-41 [facility] Comment on above: Performed By: #### 1 8942813, 1375791, 3741317, 3878408, 6179107976, 8212022 #### [facility] (DEFAULT) [address] [place] [address] Bili Total 0.2 mg/dL Low 0.3-1.2 [facility] Comment on above: Performed By: #### 1 8279229, 5485022, 2272386, 0379840, 3812250647, 2426417 #### [facility] (DEFAULT) [address] [place] [address] 97298 Calcium [Mass/Vol] 8.7 mg/dL Low 8.9-10.3 [facility] Comment on above: Performed By: #### 1 1591271, 7842028, 9886459, 5253616, 3485568921, 6664568 #### [facility] (DEFAULT) [address] [place] [address] 85871 Chloride [Moles/Vol] 103 mmol/L Normal 101-111 [facility] Comment on above: Performed By: #### 1 9587302, 6261896, 9777436, 0661506, 8536386101, 6988841 #### [facility] (DEFAULT) [address] [place] [address] 84362 CO2 [Moles/Vol] 23 mmol/L Normal 21-32 [facility] Comment on above: Performed By: #### 1 0596167, 1972445, 4927211, 6910596, 7535756554, 8952196 #### [facility] (DEFAULT) [address] [place] [address] 51020 Creatinine [Mass/Vol] 0.46 mg/dL Low 0.60-1.30 [facility] Comment on above: Performed By: #### 1 6153933, 4387253, 4071847, 1074801, 7709756964, 0771052 #### [facility] (DEFAULT) [address] [place] [address] 45248 Glucose [Mass/Vol] 90.0 mg/dL Normal 74.0-118.0 [facility] Comment on above: Performed By: #### 1 5406558, 2462735, 1332956, 8549033, 0915056567, 5888274 #### [facility] (DEFAULT) [address] [place] [address] 28411 Potassium [Moles/Vol] 4.6 mmol/L Normal 3.6-5.1 [facility] Comment on above: Performed By: #### 1 4680805, 4852129, 1723533, 9114899, 1892014680, 3954489 #### [facility] (DEFAULT) [address] [place] [address] 62847 Protein [Mass/Vol] 6.3 g/dL Low 6.5-8.1 [facility] Comment on above: Performed By: #### 1 7952121, 3186103, 7363532, 6379128, 2952541969, 5070528 #### [facility] (DEFAULT) [address] [place] [address] 89097 Sodium [Moles/Vol] 135.0 mmol/L Low 136.0-144.0 [facility] Comment on above: Performed By: #### 1 1088054, 5917844, 4980169, 2677502, 6951165741, 8971485 #### [facility] (DEFAULT) [address] [place] [address] 06693 Urea nitrogen [Mass/Vol] 24 mg/dL Normal 8-26 [facility] Comment on above: Performed By: #### 1 0337730, 6744901, 8029509, 0781378, 5847301417, 4167079 #### [facility] (DEFAULT) [address] [place] [address] 25373 Albumin/Globulin [Mass ratio] 1.1 {ratio} Low 1.4-2.6 [facility] Comment on above: Performed By: #### 1 3366366, 2391243, 7258593, 8410282, 5840212812, 4358453 #### [facility] (DEFAULT) [address] [place] [address] 96743 Anion gap [Moles/Vol] 13.6 mmol/L Normal 5.0-19.0 [facility] Comment on above: Performed By: #### 1 9985163, 9469407, 4699272, 7604873, 6870786188, 4642590 #### [facility] (DEFAULT) [address] [place] [address] 26949 Globulin (S) [Mass/Vol] 3.0 g/dL Normal 1.5-4.3 [facility] Comment on above: Performed By: #### 1 4275749, 3238452, 5676127, 8574736, 0639779820, 7695641 #### [facility] (DEFAULT) [address] [place] [address] Osmolality 274 mOsm/L Invalid Interpretation Code [facility] Comment on above: Performed By: #### 1 4170731, 4719432, 3534263, 6272981, 8312068726, 3636210 #### [facility] (DEFAULT) [address] [place] [address] Urea nitrogen/Creatinine [Mass ratio] 52.1 mg/mg High 4.6-16.2 [facility] Comment on above: Performed By: #### 1 3625555, 9171734, 1537704, 7008923, 8469766601, 7467261 #### [facility] (DEFAULT) [address] [place] [address] Magnesiumon 09-27-2024 Magnesium [Mass/Vol] 1.85 mg/dL Normal 1.80-2.50 [facility] Comment on above: Performed By: #### 1 7021517, 0026037, 9318371, 2712156, 9373983368, 2864151 #### [facility] (DEFAULT) [address] [place] [address] Phoson 09-27-2024 Phosphate [Mass/Vol] 4.3 mg/dL Normal 2.5-4.6 [facility] Comment on above: Performed By: #### 1 0828087, 7027039, 0688918, 5019238, 6250556644, 2839590 #### [facility] (DEFAULT) [address] [place] [address] Provider Orderson 09-27-2024 Provider Orders [id number] Normal [facility] Trigon 09-27-2024 Triglyceride [Mass/Vol] 58.0 mg/dL Normal 0.0-150.0 [facility] Comment on above: Performed By: #### 1 7517606, 0546368, 5161490, 1146275, 2205589748, 1491061 #### [facility] (DEFAULT) [address] [place] [address] CNOVon 09-19-2024 CNOV Normal [facility] CNPNon 09-19-2024 CNPN Normal [facility] US ARM VEIN DVT [facility] n 09-19-2024 US ARM VEIN DVT [facility] Normal [facility] Urinalysis complete panel (U )on 09-19-2024 Bacteria LM.HPF (Urine sed) [#/Area] Negative Normal Negative [facility] Comment on above: Order Comment: Speci men Type: URINE SPECIMENOrdering Facility: [facility] Address: [address] [place] [address] Performed By: #### 2 4356-8 ####[facility] LABCLIA [id number] [place] [address] [place] Bilirubin Ql (U) Negative Normal Negative [facility] Comment on above: Order Comment: Speci men Type: URINE SPECIMENOrdering Facility: [facility] Address: [address] [place] [address] Performed By: #### 2 4356-8 ####[facility] LABCLIA [id number] [place] [address] [place] Clarity (Unsp spec) Clear Normal Clear [facility] Comment on above: Order Comment: Speci men Type: URINE SPECIMENOrdering Facility: [facility] Address: [address] [place] [address] Performed By: #### 2 4356-8 ####[facility] LABCLIA [id number] [place] [address] [place] Color (U) Yellow Normal Yellow [facility] Comment on above: Order Comment: Speci men Type: URINE SPECIMENOrdering Facility: [facility] Address: [address] [place] [address] Performed By: #### 2 4356-8 ####[facility] LABCLIA [id number] [place] [address] [place] Epithelial cells LM.HPF (Urine sed) [#/Area] None Seen Normal [facility] Comment on above: Order Comment: Speci men Type: URINE SPECIMENOrdering Facility: [facility] Address: [address] [place] [address] Performed By: #### 2 4356-8 ####[facility] LABCLIA [id number] [place] [address] [place] Glucose Test strip (U) [Mass/Vol] Negative Normal Negative [facility] Comment on above: Order Comment: Speci men Type: URINE SPECIMENOrdering Facility: [facility] Address: [address] [place] [address] Performed By: #### 2 4356-8 ####[facility] LABCLIA [id number] [place] [address] [place] Hemoglobin Ql (U) 2+ Abnormal Negative [facility] Comment on above: Order Comment: Speci men Type: URINE SPECIMENOrdering Facility: [facility] Address: [address] [place] [address] Performed By: #### 2 4356-8 ####[facility] LABCLIA [id number] [place] [address] [place] Hyaline casts (Urine sed) [#/Area] 0 /[LPF] Normal 0 /LPF [facility] Comment on above: Order Comment: Speci men Type: URINE SPECIMENOrdering Facility: [facility] Address: [address] [place] [address] Performed By: #### 2 4356-8 ####[facility] LABCLIA [id number] [place] [address] [place] Ketones Ql (U) Negative Normal Negative [facility] Comment on above: Order Comment: Speci men Type: URINE SPECIMENOrdering Facility: [facility] Address: [address] [place] [address] Performed By: #### 2 4356-8 ####[facility] LABCLIA [id number] [address] [place] [address] [place] Leukocyte esterase Test strip Ql (U) Negative Normal Negative [facility] Comment on above: Order Comment: Speci men Type: URINE SPECIMENOrdering Facility: [facility] Address: [address] [place] [address] Performed By: #### 2 4356-8 ####[facility] LABCLIA [id number] [address], [place] [address] [place] Nitrite Ql (U) Negative Normal Negative [facility] Comment on above: Order Comment: Speci men Type: URINE SPECIMENOrdering Facility: [facility] Address: [address] [place] [address] Performed By: #### 2 4356-8 ####[facility] LABCLIA [id number] [address], [place] [address] [place] pH (U) 5.5 [pH] Normal <8.5 [facility] Comment on above: Order Comment: Speci men Type: URINE SPECIMENOrdering Facility: [facility] Address: [address] [place] [address] Performed By: #### 2 4356-8 ####[facility] LABCLIA [id number] [place] [address] [place] Protein (U) [Mass/Vol] Negative Normal Negative [facility] Comment on above: Order Comment: Speci men Type: URINE SPECIMENOrdering Facility: [facility] Address: [address] [place] [address] Performed By: #### 2 4356-8 ####[facility] LABCLIA [id number] [address], [facility] [place] RBC LM.HPF (Urine sed) [#/Area] 11-20 /HPF Abnormal 0-2 /HPF [facility] Comment on above: Order Comment: Speci men Type: URINE SPECIMENOrdering Facility: [facility] Address: [address] [place] [address] Performed By: #### 2 4356-8 ####[facility] LABIA [id number] [place] [address] [place] Specific gravity (U) [Rel density] 1.021 Normal 1.005-1.030 [facility] Comment on above: Order Comment: Speci men Type: URINE SPECIMENOrdering Facility: [facility] Address: [address] [place] [address] Performed By: #### 2 4356-8 ####[facility] [id number] [place] [address] [place] Urobilinogen Ql (U) 0.2 EU/dL Normal 0.2-1.0 EU/dL [facility] Comment on above: Order Comment: Speci men Type: URINE SPECIMENOrdering Facility: [facility] Address: [address] [place] [address] Performed By: #### 2 4356-8 ####[facility] [id number] [place] [address] [place] WBC LM.HPF (Urine sed) [#/Area] 0-5 /HPF Normal 0-5 /HPF [facility] Comment on above: Order Comment: Speci men Type: URINE SPECIMENOrdering Facility: [facility] Address: [address] [place] [address] Performed By: #### 2 4356-8 ####[facility] [id number] [place] [address] [place] CNNURSEon 09-18-2024 CNNURSE Normal [facility] CNOVon 09-18-2024 CNOV Normal [facility] CNPNon 09-11-2024 CNPN Normal [facility] CNPNon 09-08-2024 CNPN Normal [facility] CNDSon 09-06-2024 CNDS HNO ID: [id number] Author: JOSE RICE MD Service: Hospital Medicine Author Type: Physician Type: Discharge Summary Filed: 09/06/2024 12:30 Note Text: DISCHARGE SUMMARY PATIENT NAME: Francine Hobson ADMISSION DATE: 09/02/2024 DISCHARGE DATE: 09/06/2024 ATTENDING PHYSICIAN: Jose Rice MD Code Status: Full Code PCP: No primary care provider on file. Highest Readmission Risk Score: 38 The 30 day readmissions risk score is derived from an internally validated risk model which evaluates patient level characteristics, utilization history, medication orders and lab results up until the day of discharge. Patients with a score of 39 or above are considered highest risk for readmission. Specific patient level drivers will be listed at the bottom of the summary. TRANSITIONS OF CARE CRITICAL ISSUES: PRICE MEDICATION CHANGES: Eliquis BID as per Hem/Onc recs FOLLOW UP APPOINTMENTS: with PCP INCIDENTAL OR ACTIONABLE FINDING (Last Refresh: 09/06/2024 12:27 PM) Test(s): US DVT UPPER LEFT REASON FOR HOSPITALIZATION/PRIN CIPAL DIAGNOSES: clotted LUE PICC line HOSPITAL PROBLEMS: Principal Problem: Acute deep vein thrombosis (DVT) of left upper extremity (HCC) (POA: Yes) Active Problems: Mood disorder (HCC) (POA: Yes) On total parenteral nutrition (TPN) (POA: Yes) Malnutrition of moderate degree (HCC) (POA: Yes) Crohn's colitis, with intestinal obstruction (HCC) (POA: Yes) Acute deep vein thrombosis (DVT) of axillary vein of right upper extremity (HCC) (POA: Yes) High output ileostomy (HCC) (POA: Yes) Acute deep vein thrombosis (DVT) of left upper extremity, unspecified vein (HCC) (POA: Yes) Resolved Problems: * No resolved hospital problems. * HOSPITAL COURSE: Francine Hobson is a 38 y/o F with a PMH sig for chron's colitis with intestinal obstruction s/p end ileostomy on 08/18/24, anxiety/depression, nicotine use who presented to [facility] for a clotted LUE PICC line. Patient recently discharged on 08/30/24 from . She was discharged home with LUE PICC with nightly TPN. Her [facility] nurse and boyfriend were having difficulty flushing her PICC line. While in the hospital at still patient had a PICC line in her RUE and developed an acute axillary DVT. This line was removed and one was placed in her LUE. She was seen by vascular and started on lovenox injections with plans to transition to eliquis. She has been very consistent with taking her Lovenox injections. She was admitted and hematology was consulted. Per Dr. Lorenzo, Acute deep vein thrombosis (DVT) of left upper extremity: Patient has continued to have clots at the site of her PICC line. At this point I feel she may need possibly different vascular access with plans to do TPN for long-term. May be a Reece or a port needs to be placed. Because this was a provoked clot I recommend continuing heparin while she is here in the hospital and then when she is discharged please turn her on Eliquis for total of 3 months. I do recommend a starters pack when she is discharged. Anemia patient has had severe Crohn's disease I would like to check iron studies to ensure she is not iron deficient and if so we will administer IV iron while she is here in the hospital. She received IV iron. IR was consulted and took her for a double lumen reece placement and removal of PICC line under general anesthesia on 09/05. TPN was restarted that evening and she tolerated well. Electrolytes were monitored and repleted as needed. Symptoms improved and she was then cleared for discharge home with [facility] in stable condition and advised early follow up with her PCP upon discharge and with her specialists as scheduled. OPERATIONS/PROCEDURE DURING THIS HOSPITALIZATION: Procedure(s) (LRB): INSERTION OF TUNNELED CENTRALLY INSERTED CENTRAL VENOUS CATHETER W/O SUBQ PORT OR PUMP AGE 5YEARS OR OLDER (Right) None Reece placement and PICC line removal Central Line CONSULTS DURING HOSPITALIZATION: Treatment Team: Attending Provider: Jose Rice MD PATIENT CONDITION AT DISCHARGE: Stable DISCHARGE DISPOSITION: Home with Home Health Discharge Physical Exam: VITAL SIGNS: BP 108/60 Pulse 94 Temp 36.8 ?C (98.2 ?F) (Oral) Resp 18 Wt 53.7 kg (118 lb 6.2 oz) SpO2 98% BMI 19.11 kg/m? GENERAL: Alert, no distress, cooperative HEAD/SINUSES: No significant findings EYES: PERRLA, EOMI LUNGS: Lungs clear to auscultation, Good diaphragmatic excursion CARDIAC: Normal S1 and S2; no rubs, murmurs, or gallops ABDOMEN: Abdomen soft, non-tender, BS normal, No masses or organomegaly EXTREMITIES: Extremities normal, no deformities, edema, clubbing or skin discoloration. Good capillary refill., No ulcers SUPPLIES OR EQUIPMENT: None DIET: Resume pre-hospital diet ACTIVITY AND EXERCISE: Resume pre-hospital activity FOLLOW UP APPOINTMENTS: Future Appointments Date Time Provider Department Center 09/18/2024 2:00 PM (more content not included)... Normal [facility] Magnesium SerPl-mCncon 09-06 Magnesium [Mass/Vol] 2.2 mg/dL Normal 1.7-2.3 [facility] Comment on above: Order Comment: Speci men Type: BLOOD SPECIMENOrdering Facility: [facility] Address: [facility] [place] [address] Performed By: #### 1 9123-9, 32733-9 ####[facility] LABORATORYCLIA [id number] [place] [address] [facility] NURSING PROGon 09-06-2024 NURSING PROG HNO ID: [id number] Author: SHERLY THOMAS, RN Service: Nursing Author Type: Registered Nurse Type: Nursing Progress Note Filed: 09/11/2024 15:33 Note Text: Completed post procedure phone call. Francine stated that the Reece site is extremely painful and whenever she gets anything through the reece it is hard for her to sleep. Spoke with Obdulia Cesar, manager ecommerce to get patient on the schedule for a Line Check. Also gave patient our phone number and Jayden phone number You are scheduled for a Line Check, On 09/14/2024. You are to arrive at 8:30 am and Report to [facility]: [facility]: Radiology Outpatient Desk [id number] You can expect to be here for 1 hour Diet: You can eat and drink normally Medications: Ok to take your cardiac, blood pressure, anti-seizure, and chronic pain medications with a sip of water, please take prior to arrival. Bring your current medication list. Contrast Dye Prep: Do you have a contrast dye allergy? No. Labs: Lab-work needs to be drawn? No.. Usability Architect/Transportatio n: How will you be arriving for your procedure? Private car. Normal [facility] NUTRITIONon 09-06-2024 NUTRITION HNO ID: [id number] Author: GHASSAN MARSH RD Service: Nutrition Therapy Author Type: Registered Dietitian Type: Nutrition Filed: 09/06/2024 13:56 Note Text: PARENTERAL NUTRITION PROGRESS NOTE SERVICE DATE: 09/06/2024 SERVICE TIME: 1025 Nutrition Assessment: Recommended Malnutrition Diagnosis: Moderate Protein-Calorie Malnutrition (09/04/24 0946 : Gosia Baig RD) In the context of: Chronic Illness or Injury Based on: Subcutaneous Fat Loss, Muscle Loss Recommendations: Continue current diet Supplements: Ensure Max, Drip Drop Parenteral Nutrition Parenteral Needs: Continue PN Type: Central PN Recommended Parenteral Access Change To: Reece Indications: Short Bowel Syndrome, High ostomy output Volume (mL): 3500 Infusion Hours: 12 hours cycled Taper: Up one hour, Down one hour PN Additives: MTE-4, MVI, Zinc Dextrose: At goal Protein: At goal Lipids: SMOFlipid, 3-in-1 infusion Interval History: Patient seen this morning. Anticipating d/c and message sent to Home TPN team. Parenteral Nutrition Assessment: High Lab Interpretation: CO2 Glucose: WNL Input/Output Assessment: Negative fluid balance Temperature: Afebrile Edema/Ascites: No edema Ostomy Amount: (2400ml 3/4) Lines, Drains, and Airways Drain Duration Small Bowel Ostomy 08/18/24 RLQ 18 days External Collection Device 09/02/24 2000 3 days MNT Billing: $ Reassessment: 1-15 minutes SIGNATURE: Ghassan Marsh RD, LD PATIENT NAME: Francine Hobson DATE: September 06, 2024 TIME: 1:55 PM [facility] PTT, ANTICOAGULANT THERAPYon 09-06-2024 aPTT Coag (PPP) [Time] 59.5 s High 23.0-32.4 [facility] Comment on above: Order Comment: Speci men Type: BLOOD SPECIMENOrdering Facility: [facility] Address: [address] [place] [address] [place] [id number] Performed By: #### P TTA ####[facility] LABORATORYCLIA [id number] [place] [address] [place] Renal function 2000 panelon 09-06-2024 Albumin [Mass/Vol] 3.6 g/dL Low 3.9-4.9 [facility] Comment on above: Order Comment: Speci men Type: BLOOD SPECIMENOrdering Facility: [facility] Address: [address] [place] [address] Performed By: #### 1 9123-9, 25842-9 ####[facility] LABORATORYCLIA [id number] [place] [address] [place] Anion gap [Moles/Vol] 11 mmol/L Normal 8-15 [facility] Comment on above: Order Comment: Speci men Type: BLOOD SPECIMENOrdering Facility: [facility] Address: [address] [place], [place] [address] [address] Performed By: #### 1 9123-9, 95516-1 ####[facility]ITAL[facility] [id number] [place] [address] [place] Calcium [Mass/Vol] 9.5 mg/dL Normal 8.5-10.2 [facility] Comment on above: Order Comment: Speci men Type: BLOOD SPECIMENOrdering Facility: [facility] Address: [facility] [place] [address] Performed By: #### 1 9123-9, 64819-4 ####[facility] HOSPITALIA [id number] [place] [address] [place] Chloride [Moles/Vol] 98 mmol/L Normal 98-107 [facility] Comment on above: Order Comment: Speci men Type: BLOOD SPECIMENOrdering Facility: [facility] Address: [facility] [place] [address] Performed By: #### 1 9123-9, 81703-6 ####[facility] LABORATORYIA [id number] [place] [address] [place] CO2 [Moles/Vol] 31 mmol/L High 22-30 [facility] Comment on above: Order Comment: Speci men Type: BLOOD SPECIMENOrdering Facility: [facility] Address: [address] [place] [address] Performed By: #### 1 9123-9, 35153-4 ####[facility] LABORATORYCLIA [id number] [place] [address] [place] Creatinine [Mass/Vol] 0.62 mg/dL Normal 0.58-0.96 [facility] Comment on above: Order Comment: Speci men Type: BLOOD SPECIMENOrdering Facility: [facility] Address: [address] [place] [address] Performed By: #### 1 9123-9, 13399-6 ####[facility] LABORATORYCLIA [id number] [place] [address] [facility] Creatinine and Glomerular filtration rate.predicted panel (S/P/Bld) 119 mL/min/1.73m??? Normal >=60 [facility] Comment on above: Order Comment: Speci men Type: BLOOD SPECIMENOrdering Facility: [facility] Address: [address] [place] [address] Result Comment: Desiree mated Glomerular Filtration Rate (eGFR) is calculated using the 2020 CKD-EPI creatinine equation. This equation utilizes serum creatinine, sex, and age as parameters. The creatinine assay has traceable calibration to isotope dilution-mass spectrometry. Refer to KDIGO guidelines for clinical interpretation. In patients with unstable renal function, e.g. those with acute kidney injury, the eGFR may not accurately reflect actual GFR. Performed By: #### 1 9123-9, 59167-1 ####[facility] LABORATORYCLIA [id number] [place] [address] [place] Glucose [Mass/Vol] 107 mg/dL High 74-99 [facility] Comment on above: Order Comment: Speci men Type: BLOOD SPECIMENOrdering Facility: [facility] Address: [address] [place] [address] Result Comment: The [place] Diabetes Association (ADA) provides guidance for cutoff values for fasting glucose and random glucose. The ADA defines fasting as no caloric intake for at least 8 hours. Fasting plasma glucose results between 100 to 125 mg/dL indicate increased risk for diabetes (prediabetes). Fasting plasma glucose results greater than or equal to 126 mg/dL meet the criteria for diagnosis of diabetes. In the absence of unequivocal hyperglycemia, results should be confirmed by repeat testing. In a patient with classic symptoms of hyperglycemia or hyperglycemic crisis, random plasma glucose results greater than or equal to 200 mg/dL meet the criteria for diagnosis of diabetes. Reference: Standards of Medical Care in Diabetes 2016, [place] Diabetes Association. Diabetes Care. 2016.39(Suppl 1). Performed By: #### 1 9123-9, 69748-2 ####[facility] LABORATORYCLIA [id number] [place] [address] [place] Phosphate [Mass/Vol] 3.6 mg/dL Normal 2.7-4.8 [facility] Comment on above: Order Comment: Speci men Type: BLOOD SPECIMENOrdering Facility: [facility] Address: [address] [place] [address] Performed By: #### 1 9123-9, 38560-5 ####[facility] LABORATORYCLIA [id number] [place] [address] [place] Potassium [Moles/Vol] 3.8 mmol/L Normal 3.7-5.1 [facility] Comment on above: Order Comment: Speci men Type: BLOOD SPECIMENOrdering Facility: [facility] Address: [address] [place] [address] Performed By: #### 1 9123-9, 91131-7 ####[facility] LABORATORYCLIA [id number] [place] [address] [place] Sodium [Moles/Vol] 140 mmol/L Normal 136-[address] [facility] Comment on above: Order Comment: Speci men Type: BLOOD SPECIMENOrdering Facility: [facility] Address: [address] [place] [address] Performed By: #### 1 9123-9, 55547-4 ####[facility] LABORATORYCLIA [id number] [place], [place] [address] [place] [address] [facility] Urea nitrogen [Mass/Vol] 19 mg/dL Normal 7-21 [facility] Comment on above: Order Comment: Speci men Type: BLOOD SPECIMENOrdering Facility: [facility] Address: [address] [place] [address] Performed By: #### 1 9123-9, 13974-0 ####[facility] LABORATORYCLIA [id number] [place] [address] [place] ANES POSTPROC EVALon 025 ANES POSTPROC EVAL HNO ID: [id number] Author: RAHUL TRENT MD Service: Anesthesiology Author Type: Physician Type: Anesthesia Postprocedure Evaluation Filed: 09/05/2024 11:06 Note Text: POST ANESTHESIA EVALUATION NOTE : 1985 Procedure Summary Date: 09/05/24 Room / Location: IR ([address] [place] [address]) / [facility] Anesthesia Start: 854 Anesthesia Stop: 1001 Procedure: INSERTION OF TUNNELED CENTRALLY INSERTED CENTRAL VENOUS CATHETER W/O SUBQ PORT OR PUMP AGE 5YEARS OR OLDER (Right) Diagnosis: On total parenteral nutrition (TPN) (On total parenteral nutrition (TPN) [Z78.9]) Surgeons: Charito Washington MD Responsible Provider: Rahul Trent MD Anesthesia Type: MAC ASA Status: 2 Anesthesia Type: MAC Last Vitals Vitals Value Taken Time BP 93/45 09/05/24 1050 Temp 36.1 ?C (97 ?F) 09/05/24 1003 HR SpO2 82 09/05/24 1053 Resp 12 09/05/24 1053 SpO2 95 % 09/05/24 1053 Vitals shown include unfiled device data. Post Anesthesia Patient Status Patient Evaluation: PACU. PACU/ICU Patient Condition: stable. Anticipated Disposition: inpatient floor planned admission. Neurological Status: aware and responsive. Pulmonary Status: breathing comfortably on room air Airway Control: returned to baseline unsupported. Cardiovascular Status: stable. Pain Management: satisfactory to patient Postoperative Hydration: acceptable. Intraoperative Events: no significant anesthesia events Recommendation: continue current plan of care. Anesthesia Observations No Documentation SIGNATURE: Rahul Trent MD PATIENT NAME: Francine Hobson DATE: September 05, 2024 TIME: 11:05 AM CSN: [id number] [facility] ANES PRE-OPon 09-05-2024 ANES PRE-OP HNO ID: [id number] Author: RAHUL TRENT MD Service: Anesthesiology Author Type: Physician Type: Anesthesia Preprocedure Evaluation Filed: 09/05/2024 08:47 Note Text: ANESTHESIOLOGY DAY OF SURGERY NOTE : 1985 Procedure Information Date/Time: 09/05/24824 Procedure: INSERTION OF TUNNELED CENTRALLY INSERTED CENTRAL VENOUS CATHETER W/O SUBQ PORT OR PUMP AGE 5YEARS OR OLDER (Right) Location: AV IR (1ST FLR) / [facility] Surgeons: Charito Washington MD Estimated body mass index is 19.11 kg/m? as calculated from the following: Height as of 08/17/24: 167.6 cm (5' 6 ). Weight as of this encounter: 53.7 kg (118 lb 6.2 oz). Most recent hematocrit and potassium results: Hematocrit 28.3 09/04/2024 Potassium 4.0 09/05/2024 Relevant Problems CARDIO (+) Acute deep vein thrombosis (DVT) of axillary vein of right upper extremity (HCC) (+) Acute deep vein thrombosis (DVT) of brachial vein of right upper extremity (HCC) (+) Acute deep vein thrombosis (DVT) of left upper extremity (HCC) (+) Acute deep vein thrombosis (DVT) of left upper extremity, unspecified vein (HCC) Oncology (+) Crohn's disease of both small and large intestine with abscess (HCC) I - PHYSICAL EVALUATION AIRWAY Patient intubated: No. Tracheostomy tube not present Mallampati: II. TM distance: >3 FB. Neck ROM: full. Mouth opening: adequate. Short neck: no. Thick neck: no Browne present: no DENTAL Normal dental observations. Dental findings: teeth intact. Additional exam findings: no II - ANESTHESIA PLAN ASA Score: 2 Anesthetic Plan: MAC NPO Status: adequate Beta Sunshine Monitoring Plan Monitoring plan: Standard ASA. Post Procedure Analgesic Plan Postoperative analgesic plan: parenteral or oral opioids. Informed Consent Anesthetic risks, benefits, alternatives, personnel and consent discussed: yes. Patient / Responsible Libertarian agrees to proceed: yes Patient / Surrogate agrees to blood products: blood products not planned Significant changes in the patient condition since the History and Physical, not otherwise documented in primary service progress note: no. Potential Anesthesia issues that may suggest increased risk of complications or contraindication to planned procedure: none. No vitals data found for the desired time range. Facility-Administere d Medications as of 09/05/2024 Medication Dose Route Frequency magnesium sulfate 1 g in D5W 100 mL 1 g INTRAVENOUS ONCE dextrose 5% in NaCl 0.45% iv infusion 75 mL/hr INTRAVENOUS CONTINUOUS [] Parenteral Nutrition Adult 3 in 1 with SMOFlipid INTRAVENOUS ONCE PN (2200 START) [] dextrose 5% in NaCl 0.45% iv infusion 30-150 mL/hr INTRAVENOUS PRN ferric gluconate 125 mg in NaCl 0.9% 100 mL (FERRLECIT) 125 mg INTRAVENOUS DAILY AT 6 PM midodrine 10 mg tab(s) (PROAMITINE) 10 mg ORAL TID [COMPLETED] HYDROmorphone 1 mg injection (DILAUDID) 1 mg INTRAVENOUS ONCE heparin iv infusion 25,000 units in NaCl 0.45% 250 mL STANDARD NOMOGRAM 0-3,000 Units/hr INTRAVENOUS CONTINUOUS And heparin RATE CHANGE bolus 1,000-10,000 Units for subtherapeutic PTTAC results 1,000-10,000 Units INTRAVENOUS PRN [COMPLETED] heparin nomogram INITIAL BOLUS 80 units/kg/dose INTRAVENOUS ONCE (heparin bolus) NaCl 0.9% iv flush bag 20 mL INTRAVENOUS PRN diazePAM 5 mg tab(s) (VALIUM) 5 mg ORAL q 6 H PRN oxyCODONE IR 5-10 mg tab(s) (ROXICODONE) 5-10 mg ORAL q 6 H PRN diphenoxylate-atropi ne 2.5-0.025 mg 2 tablet (LOMOTIL) 2 tablet ORAL AC and HS loperamide 4 mg cap(s) (IMODIUM) 4 mg ORAL AC and HS calcium polycarbophil 625 mg tab(s) (FIBERCON) 625 mg ORAL BID dicyclomine 10 mg cap(s) (BENTYL) 10 mg ORAL TID lactobacillus rhamnosus 10 billion cell (CULTURELLE) capsule 1 capsule ORAL DAILY ondansetron (PF) 4 mg injection (ZOFRAN) 4 mg INTRAVENOUS q [address] 40 mg tab(s) (PROTONIX) 40 mg ORAL DAILY (6 AM) amitriptyline 25 mg tab(s) (ELAVIL) 25 mg ORAL AT BEDTIME acetaminophen 1,000 mg tab(s) (TYLENOL) 1,000 mg ORAL q 6 H PRN citalopram 40 mg tab(s) (CeleXA) 40 mg ORAL DAILY gabapentin 300 mg cap(s) (NEURONTIN) 300 mg ORAL TID hydrOXYzine HCl 25 mg tab(s) (ATARAX) 25 mg ORAL TID PRN HYDROmorphone 0.2 mg injection (DILAUDID) 0.2 mg INTRAVENOUS q 4 H PRN LORazepam 0.5 mg injection (ATIVAN) 0.5 mg INTRAVENOUS q 4 H PRN Outpatient Medications as of 09/05/2024 Medication Sig calcium polycarbophil (FIBERCON) 625 mg tablet Take 1 tablet by mouth two times a day. diphenoxylate-atropi ne (LOMOTIL) 2.5-0.025 mg per tablet Take 2 tablets by mouth before meals and at bedtime for 90 days. oxyCODONE IR (ROXICODONE) 5 mg immediate release tablet Take 1 tablet by mouth every 6 hours as needed for pain for up to 7 days. enoxaparin (LOVENOX) 80 mg/0.8 mL Inject 0.7 mL subcutaneously every 24 hours. Please eject 0.1 mL of fluid from syringe into trash. Inject the remaining fluid into the subcutaneous tissue. [START ON 10/01/2024] apixaban (ELIQ (more content not included)... [facility] BRIEF OP NOTon 09-05-2024 BRIEF OP NOT HNO ID: [id number] Author: CHARITO WASHINGTON MD Service: Interventional Radiology Author Type: Physician Type: Brief Op Note Filed: 09/05/2024 10:06 Note Text: RADIOLOGY BRIEF PROCEDURE NOTE Procedure Date: September 05, 2024 Incision/Procedure Start Time: 936 Incision Close/Procedure End Time: 953 UNIVERSAL PROTOCOL / SAFETY CHECKLIST Procedure to be Performed: right IJ dual lumen Reece catheter placement and LUE PICC line removal Sign in Communication: Completed Time Out: Team Confirms the Correct Patient, Correct Procedure, Correct Site and Site Marking, Correct Position (if applicable). Time: 936 Affirmation of Time Out: YES Sign Out Discussion: Completed Informed Consent obtained under separate note. ATTENDING RADIOLOGIST: Interventional: Dr. Charito Washington CIGAR MAKING MACHINE OPERATOR: None PRE-PROCEDURAL DIAGNOSIS: malnutrition PROCEDURE: Other (specify) - right IJ dual lumen Reece catheter placement and LUE PICC line removal MEDICAL HISTORY/PHYSICAL EXAM: Radiology personnel have verified that HANDP dated 09/05/24 exists in patient record. SUMMARY: Following full and informed consent the patient was brought to procedure suite. Subsequently, right IJ dual lumen Reece catheter placement and LUE PICC line removal. Reece catheter ready for use. POST-PROCEDURAL DIAGNOSIS: malnutrition ESTIMATED BLOOD LOSS: 1 mls SPECIMENS: None COMPLICATIONS: None DISPOSITION: Patient hemodynamically stable, alert and awake. Patient transferred to Radiology Recovery/PACU for monitoring prior to transfer to regular nursing floor for further monitoring. FULL DICTATION REPORT TO FOLLOW. SIGNATURE: Charito Washington MD PATIENT NAME: Francine Hobson DATE: September 05, 2024 TIME: 10:04 AM [facility] HISTORY PHYSICALon HISTORY PHYSICAL HNO ID: [id number] Author: CHARITO WASHINGTON MD Service: Interventional Radiology Author Type: Physician Type: H&P Filed: 09/05/2024 08:50 Note Text: PROCEDURAL SEDATION HISTORY AND PHYSICAL EXAM SERVICE DATE: 09/05/2024 SERVICE TIME: 8:49 AM Subjective HPI: This is a 38 year old female who presents with malnutrition and here for dual lumen Reece catheter placement for TPN and removal of LUE PICC line. Of note, patient is requesting a dual lumen Reece catheter. Patient verbalized understanding of risks and benefits of the procedure and agreed to proceed with the procedure. PAST ANESTHESIA HISTORY: No history of adverse event PAST MEDICAL HISTORY Diagnosis Date Crohn disease (HCC) PAST SURGICAL HISTORY Procedure Laterality Date BOWEL RESECTION HX PICC LINE INSERT/CONSULT 08/21/2024 Prior to Admission medications as of 09/01/24 4093 Medication Sig Last Dose Taking calcium polycarbophil (FIBERCON) 625 mg tablet Take 1 tablet by mouth two times a day. diphenoxylate-atropi ne (LOMOTIL) 2.5-0.025 mg per tablet Take 2 tablets by mouth before meals and at bedtime for 90 days. oxyCODONE IR (ROXICODONE) 5 mg immediate release tablet Take 1 tablet by mouth every 6 hours as needed for pain for up to 7 days. enoxaparin (LOVENOX) 80 mg/0.8 mL Inject 0.7 mL subcutaneously every 24 hours. Please eject 0.1 mL of fluid from syringe into trash. Inject the remaining fluid into the subcutaneous tissue. apixaban (ELIQUIS) 5 mg tab(s) Take 1 tablet by mouth every 12 hours. Please start Eliquis after finishing Lovenox prescription. Patient should start on October 01, 2024. loperamide (IMODIUM) 2 mg cap(s) Take 2 capsules by mouth before meals and at bedtime. diazePAM (VALIUM) 5 mg tablet Take 1 tablet by mouth every 6 hours as needed for muscle spasm or pain for up to 7 days. Do not take oxycodone and valium at the same time. Please spread out these medications by 2-[address] (PROTONIX) 40 mg tablet Take 1 tablet by mouth once daily. ondansetron orally disintegrating (ZOFRAN ODT) 4 mg disintegrating tablet Take 1 tablet by mouth every 8 hours as needed for nausea/vomiting (first line). promethazine (PHENERGAN) 25 mg tablet Take 1 tablet by mouth every 6 hours as needed for nausea/vomiting (second line). acetaminophen (TYLENOL) 500 mg tablet Take 2 tablets by mouth every 6 hours as needed (mild, moderate pain). gabapentin (NEURONTIN) 300 mg capsule Take 1 capsule by mouth three times a day for 30 days. propranolol (INDERAL) 10 mg tablet Take 10 mg by mouth once daily. As needed for panic attacks amitriptyline (ELAVIL) 25 mg tablet Take 25 mg by mouth daily at bedtime. dicyclomine (BENTYL) 10 mg capsule Take 10 mg by mouth three times a day. Lactobacillus acidophilus (PROBIOTIC ACIDOPHILUS ORAL) Take 1 capsule by mouth once daily Cholecalciferol, Vitamin D3, (VITAMIN D) 25 mcg (1,000 unit) cap Take 1,000 Units by mouth once daily. midodrine (PROAMATINE) 10 mg tablet Take 10 mg by mouth three times a day. hydrOXYzine HCl (ATARAX) 25 mg tablet Take 25 mg by mouth three times a day as needed for anxiety. citalopram (CELEXA) 40 mg tablet Take 40 mg by mouth once daily. ALLERGIES Allergen Reactions Ibuprofen Other: See Comments Nsaids (Non-Steroid* Other: See Comments Objective PHYSICAL EXAM: AIRWAY: Airway Visualization of Uvula: Yes Mouth opening greater than 2 fingerbreadths: Yes Neck Full Range of Motion: Yes LUNGS: Lungs clear to auscultation CARDIAC: Regular rhythm,Regular rate The remainder of the physical exam is noncontributory. Assessment/Plan ASA Class 3: Patient with severe systemic disease Provisional Diagnosis/Treatment Plan: Malnutrition and here for dual lumen Reece catheter placement for TPN and removal of LUE PICC line. Sedation Goal: Moderate SIGNATURE: Charito Washington MD PATIENT NAME: Francine Hobson DATE: September 05, 2024 TIME: 8:49 AM [facility] IR FLU GD RAHEL CVA PLACEon IR FLU GD RAHEL CVA PLACE * * *Final Report* * * DATE OF EXAM: Sep 05 2024 9:54AM A [id number] - IR FLU GD RAHEL CVA PLACE / PROCEDURE REASON: 2L reece * * * * Physician Interpretation * * * * PROCEDURE: TUNNELED CENTRAL VENOUS CATHETER PLACEMENT AND PICC LINE REMOVAL Procedural Personnel Attending(s): Charito Washington M.D. Track Walker(s): Fellow(s): None Resident(s): None Advanced practice provider(s): None Medical Student(s): None Pre-procedure diagnosis: Malnutrition and difficult IV access Post-procedure diagnosis: Same Indication(s): Administration of total parenteral nutrition and administration of IV medications Additional clinical history: None PROCEDURE DETAILS: Pre-procedure History and imaging of central venous access reviewed (QCDR): Yes Consent: Risks, benefits, treatment options, potential complications and personnel to be involved were discussed (including the risks of radiation exposure, contrast and anesthesia administration, and any equipment needed for the procedure to ensure best possible outcome) with the patient and all questions were answered and consent was obtained prior to procedure. Medication reconciliation: The patient's medications and allergies were reviewed in the electronic medical record and reconciled to the proposed procedure/treatment. Stefania-procedure discussion: The appropriate elements of the pre-procedure discussion, safety check list and sign-out were performed. Time out: A time out was performed immediately prior to procedure start with the nursing and interventional team, correctly identifying the name, date of , procedure, anatomy (including marking of site and side if applicable), patient position, procedure consent form, relevant diagnostic and radiology test results, antibiotic administration if applicable, safety precautions, and procedure-specific equipment needs. Start of procedure: 936 End of procedure: 953 Antibiotics: None Antibiotic infusion start time: N/A Prophylactic antibiotic administered: None Preparation (MIPS) Patient position: Supine The site was prepared and draped using all elements of maximal sterile barrier technique including sterile gloves, sterile gown, cap, mask, large sterile sheet, sterile ultrasound probe cover, hand hygiene and cutaneous antisepsis with 2% chlorhexidine. Medical reason for site preparation exception (MIPS): Not applicable Anesthesia/sedation Level of anesthesia/sedation: General anesthesia Anesthesia Medications: General anesthesia Anesthesia/sedation administered by: an independent trained observer with continuous monitoring of the level of consciousness and physiologic status, under attending supervision Intra-service time (monitoring for moderate sedation): Not applicable Patient monitoring: I personally supervised and directed an independent trained observer who assisted in monitoring the patient?s level of consciousness and physiological status throughout the procedure. Local anesthesia: 2 % lidocaine Access The vessel was sonographically evaluated and judged appropriate for access. Real time ultrasound was used to visualize needle entry into the vessel and a permanent image was stored. Vein accessed: Right internal jugular vein Access vein ultrasound findings: Patent Access technique: 4F micropuncture set Venography Indication for venography: Not performed Catheter tip position for venography: Not applicable Venous segment imaged: Not applicable Findings: Not applicable Catheter placement An incision was made in the upper chest and the catheter was tunneled subcutaneously to the venous access site. The catheter was trimmed to appropriate length and advanced via a peel-away sheath into the vein under fluoroscopic guidance. Catheter tip location was fluoroscopically verified and a permanent image was stored. Catheter placed: 12 F dual lumen Reece Catheter trim length: Trimmed to appropriate length Catheter tip position: Right atrium. Unique Device Identifier (AUDRA): Not available Catheter flush: Normal saline Closure Access site closure technique: Absorbable suture and Steri-strips Catheter securement technique: 2-0 Prolene purse string suture. Sterile dressing(s) applied. [facility] Central Line Insertion checklist, attached to the Central Line-Associated Bloodstream Infection Prevention Policy, was utilized during this procedure. Contrast Contrast agent: None Contrast volume: 0 mL Route of Administration: Not applicable Radiation Dose Fluoroscopy time: 0:30 minutes Reference air kerma: 0.4 mGy Kerma area product: 12.60 uGym2 Radiation dose exceed 5 Gy: No If radiation dose exceeded 5 Gy, was counseling and instructional brochure provided: N/A Additional Details Additional description of procedure: Successful left upper extremity peripherally inserted central venous catheter (PICC) line removal. Ma (more content not included)... [facility] IR INSERT REECE CATHon IR INSERT REECE CATH * * *Final Report* * * DATE OF EXAM: Sep 05 2024 9:54AM [facility] [id number] - IR INSERT REECE CATH / PROCEDURE REASON: 2L reece * * * * Physician Interpretation * * * * PROCEDURE: TUNNELED CENTRAL VENOUS CATHETER PLACEMENT AND PICC LINE REMOVAL Procedural Personnel Attending(s): Charito Washington M.D. Track Walker(s): Fellow(s): None Resident(s): None Advanced practice provider(s): None Medical Student(s): None Pre-procedure diagnosis: Malnutrition and difficult IV access Post-procedure diagnosis: Same Indication(s): Administration of total parenteral nutrition and administration of IV medications Additional clinical history: None PROCEDURE DETAILS: Pre-procedure History and imaging of central venous access reviewed (QCDR): Yes Consent: Risks, benefits, treatment options, potential complications and personnel to be involved were discussed (including the risks of radiation exposure, contrast and anesthesia administration, and any equipment needed for the procedure to ensure best possible outcome) with the patient and all questions were answered and consent was obtained prior to procedure. Medication reconciliation: The patient's medications and allergies were reviewed in the electronic medical record and reconciled to the proposed procedure/treatment. Stefania-procedure discussion: The appropriate elements of the pre-procedure discussion, safety check list and sign-out were performed. Time out: A time out was performed immediately prior to procedure start with the nursing and interventional team, correctly identifying the name, date of , procedure, anatomy (including marking of site and side if applicable), patient position, procedure consent form, relevant diagnostic and radiology test results, antibiotic administration if applicable, safety precautions, and procedure-specific equipment needs. Start of procedure: 936 End of procedure: 953 Antibiotics: None Antibiotic infusion start time: N/A Prophylactic antibiotic administered: None Preparation (MIPS) Patient position: Supine The site was prepared and draped using all elements of maximal sterile barrier technique including sterile gloves, sterile gown, cap, mask, large sterile sheet, sterile ultrasound probe cover, hand hygiene and cutaneous antisepsis with 2% chlorhexidine. Medical reason for site preparation exception (MIPS): Not applicable Anesthesia/sedation Level of anesthesia/sedation: General anesthesia Anesthesia Medications: General anesthesia Anesthesia/sedation administered by: an independent trained observer with continuous monitoring of the level of consciousness and physiologic status, under attending supervision Intra-service time (monitoring for moderate sedation): Not applicable Patient monitoring: I personally supervised and directed an independent trained observer who assisted in monitoring the patient?s level of consciousness and physiological status throughout the procedure. Local anesthesia: 2 % lidocaine Access The vessel was sonographically evaluated and judged appropriate for access. Real time ultrasound was used to visualize needle entry into the vessel and a permanent image was stored. Vein accessed: Right internal jugular vein Access vein ultrasound findings: Patent Access technique: 4F micropuncture set Venography Indication for venography: Not performed Catheter tip position for venography: Not applicable Venous segment imaged: Not applicable Findings: Not applicable Catheter placement An incision was made in the upper chest and the catheter was tunneled subcutaneously to the venous access site. The catheter was trimmed to appropriate length and advanced via a peel-away sheath into the vein under fluoroscopic guidance. Catheter tip location was fluoroscopically verified and a permanent image was stored. Catheter placed: 12 F dual lumen Reece Catheter trim length: Trimmed to appropriate length Catheter tip position: Right atrium. Unique Device Identifier (AUDRA): Not available Catheter flush: Normal saline Closure Access site closure technique: Absorbable suture and Steri-strips Catheter securement technique: 2-0 Prolene purse string suture. Sterile dressing(s) applied. [facility] Central Line Insertion checklist, attached to the Central Line-Associated Bloodstream Infection Prevention Policy, was utilized during this procedure. Contrast Contrast agent: None Contrast volume: 0 mL Route of Administration: Not applicable Radiation Dose Fluoroscopy time: 0:30 minutes Reference air kerma: 0.4 mGy Kerma area product: 12.60 uGym2 Radiation dose exceed 5 Gy: No If radiation dose exceeded 5 Gy, was counseling and instructional brochure provided: N/A Additional Details Additional description of procedure: Successful left upper extremity peripherally inserted central venous catheter (PICC) line removal. Man (more content not included)... [facility] IR US VASCULAR ACCESS GUIDEo n 09-05-2024 IR US VASCULAR ACCESS GUIDE * * *Final Report* * * DATE OF EXAM: Sep 05 2024 9:54AM Lizzeth 7765 - IR US VASCULAR ACCESS GUIDE / PROCEDURE REASON: 2L reece * * * * Physician Interpretation * * * * PROCEDURE: TUNNELED CENTRAL VENOUS CATHETER PLACEMENT AND PICC LINE REMOVAL Procedural Personnel Attending(s): Charito Washington M.D. Track Walker(s): Fellow(s): None Resident(s): None Advanced practice provider(s): None Medical Student(s): None Pre-procedure diagnosis: Malnutrition and difficult IV access Post-procedure diagnosis: Same Indication(s): Administration of total parenteral nutrition and administration of IV medications Additional clinical history: None PROCEDURE DETAILS: Pre-procedure History and imaging of central venous access reviewed (QCDR): Yes Consent: Risks, benefits, treatment options, potential complications and personnel to be involved were discussed (including the risks of radiation exposure, contrast and anesthesia administration, and any equipment needed for the procedure to ensure best possible outcome) with the patient and all questions were answered and consent was obtained prior to procedure. Medication reconciliation: The patient's medications and allergies were reviewed in the electronic medical record and reconciled to the proposed procedure/treatment. Stefania-procedure discussion: The appropriate elements of the pre-procedure discussion, safety check list and sign-out were performed. Time out: A time out was performed immediately prior to procedure start with the nursing and interventional team, correctly identifying the name, date of , procedure, anatomy (including marking of site and side if applicable), patient position, procedure consent form, relevant diagnostic and radiology test results, antibiotic administration if applicable, safety precautions, and procedure-specific equipment needs. Start of procedure: 936 End of procedure: 953 Antibiotics: None Antibiotic infusion start time: N/A Prophylactic antibiotic administered: None Preparation (MIPS) Patient position: Supine The site was prepared and draped using all elements of maximal sterile barrier technique including sterile gloves, sterile gown, cap, mask, large sterile sheet, sterile ultrasound probe cover, hand hygiene and cutaneous antisepsis with 2% chlorhexidine. Medical reason for site preparation exception (MIPS): Not applicable Anesthesia/sedation Level of anesthesia/sedation: General anesthesia Anesthesia Medications: General anesthesia Anesthesia/sedation administered by: an independent trained observer with continuous monitoring of the level of consciousness and physiologic status, under attending supervision Intra-service time (monitoring for moderate sedation): Not applicable Patient monitoring: I personally supervised and directed an independent trained observer who assisted in monitoring the patient?s level of consciousness and physiological status throughout the procedure. Local anesthesia: 2 % lidocaine Access The vessel was sonographically evaluated and judged appropriate for access. Real time ultrasound was used to visualize needle entry into the vessel and a permanent image was stored. Vein accessed: Right internal jugular vein Access vein ultrasound findings: Patent Access technique: 4F micropuncture set Venography Indication for venography: Not performed Catheter tip position for venography: Not applicable Venous segment imaged: Not applicable Findings: Not applicable Catheter placement An incision was made in the upper chest and the catheter was tunneled subcutaneously to the venous access site. The catheter was trimmed to appropriate length and advanced via a peel-away sheath into the vein under fluoroscopic guidance. Catheter tip location was fluoroscopically verified and a permanent image was stored. Catheter placed: 12 F dual lumen Reece Catheter trim length: Trimmed to appropriate length Catheter tip position: Right atrium. Unique Device Identifier (AUDRA): Not available Catheter flush: Normal saline Closure Access site closure technique: Absorbable suture and Steri-strips Catheter securement technique: 2-0 Prolene purse string suture. Sterile dressing(s) applied. [facility] Central Line Insertion checklist, attached to the Central Line-Associated Bloodstream Infection Prevention Policy, was utilized during this procedure. Contrast Contrast agent: None Contrast volume: 0 mL Route of Administration: Not applicable Radiation Dose Fluoroscopy time: 0:30 minutes Reference air kerma: 0.4 mGy Kerma area product: 12.60 uGym2 Radiation dose exceed 5 Gy: No If radiation dose exceeded 5 Gy, was counseling and instructional brochure provided: N/A Additional Details Additional description of procedure: Successful left upper extremity peripherally inserted central venous catheter (PICC) line removal. (more content not included)... [facility] Magnesium SerPl-mCncon 09-05 Magnesium [Mass/Vol] 1.7 mg/dL Normal 1.7-2.3 [facility] Comment on above: Order Comment: Speci men Type: BLOOD SPECIMENOrdering Facility: [facility] Address: [address] [place] [address] Performed By: #### 1 9123-9, 80443-1, 2571-8 ####[facility] LABORATORYCLIA [id number] [place] [address] [facility] NUTRITIONon 09-05-2024 NUTRITION HNO ID: [id number] Author: GHASSAN MARSH RD Service: Nutrition Therapy Author Type: Registered Dietitian Type: Nutrition Filed: 09/05/2024 14:14 Note Text: NUTRITION THERAPY PROGRESS NOTE SERVICE DATE: 09/05/2024 SERVICE TIME: 112 Nutrition Assessment: Recommended Malnutrition Diagnosis: Moderate Protein-Calorie Malnutrition (09/04/24 0946 : Gosia Baig RD) Care Plan: Continue current diet Supplements: Ensure Max, Drip Drop Parenteral Nutrition Parenteral Needs: Start PN Type: Central PN Recommended Parenteral Access Change To: Reece Volume (mL): 3500 Infusion Hours: 12 hours cycled Taper: Up one hour, Down one hour PN Additives: MTE-4, MVI, Zinc Dextrose: At goal Protein: At goal Lipids: SMOFlipid, 3-in-1 infusion (5 days per week) Monitor and Evaluation: Monitor bowel function, Monitor fluid/electrolyte balance, Monitor labs, I/Os, vital signs, weight Interval History: Patient seen after Reece placement. Having pain at site and in her arm (where PICC was removed). Requesting lipids to be run 7 days per week to gain weight. Likes the Ensure Max and Drip Drop and wants to continue them. Requests hardboiled eggs as a snack and sent message to [employer]. Ostomy Amount: (2150ml 09/04) Intake History: Current Nutrition Intake: 0-25% estimated energy needs Current Intake Over time: (3 days) Average Daily Calorie Intake (kcal): 306 kcal Average intake over: (via IVF) Dosing Weight: 53.7 kg (118 lb 6.2 oz) Dosing Weight Type: Current weight Estimated kilocalorie needs: 8138-5341 Calorie Calculation Method: (30-40kcals/kg) Estimated protein needs (grams): 79-105 Grams protein determined by: 20% of estimated energy needs Diet Orders (From admission, onward) Start Ordered 09/05/24 1345 DIET SUPPLEMENTS START NOW Question Answer Comment Supplement 1 ENSURE MAX STRAWBERRY Supplement 1 Frequency 1. BREAKFAST Supplement 1 Frequency 5. DINNER Supplement 1 Frequency 3. LUNCH Supplement 2 DRIP DROP WATERMELON (RD APPROVAL) Supplement 2 Frequency 3. LUNCH Supplement 2 Frequency 5. DINNER - DUE TO THE IV SHORTAGE RD APPROVAL IS NO LONGER NEEDED FOR DRIP DROP SUPPLEMENTS - Mix 1 single packet of Drip Drop in 8oz (250ml) or 2 packets in 500 ml of water and stir to dissolve. Avoid pouring over ice to prevent dilution. - Instruct patient to take 2 sips or 30 ml every 3 min (or every 5 min) and increase to 4 sips or 60ml ever 5 mins as tolerated 09/05/24 1334 09/05/24 1330 DIET GASTRO INTESTINAL START NOW Question Answer Comment Gastro Intestinal FIBER CONTROLLED Gastro Intestinal GLUTEN CONTROLLED Gastro Intestinal LOW SUGAR 10 GM 09/05/24 1326 Anthropometrics: Weight: 53.7 kg (118 lb 6.2 oz) Body mass index is 19.11 kg/m?. Lines, Drains, and Airways Drain Duration Small Bowel Ostomy 08/18/24 RLQ 17 days External Collection Device 09/02/24 2000 2 days MNT Billing: $ Reassessment: 1-15 minutes SIGNATURE: Ghassan Marsh RD, LD PATIENT NAME: Francine Hobson DATE: September 05, 2024 TIME: 2:05 PM [facility] PT EDon 09-05-2024 PT ED HNO ID: [id number] Author: SHERLY THOMAS RN Service: Nursing Author Type: Registered Nurse Type: Patient Education Filed: 09/05/2024 08:58 Note Text: PATIENT EDUCATION TOPIC: PROCEDURE / SURGERY: Procedure/Surgery: PICC Removal/Central Line Placement PATIENT NAME: Francine Hobson PATIENT LOCATION: AV Rad Proc/AV Rad Proc READINESS TO LEARN COGNITIVE ABILITY: Alert and oriented MOTIVATION TO LEARN: Interested FAMILY SUPPORT: Unable to assess - Family not present INSTRUCTION PROVIDED TO: Patient PATIENT LEARNS BEST BY: Written Instruction - Hand-outs Verbal Instruction FACTORS AFFECTING LEARNING: None PHYSICAL LIMITATIONS AFFECTING LEARNING: None LEARNING RESPONSE DIAGNOSIS: ADULT: PICC line getting clots PATIENT/FAMILY RESPONSE: Verbalizes understanding of: POST-PROCEDURE INSTRUCTIONS-Correct actions to take to reduce post procedure complications PRE-PROCEDURE INSTRUCTIONS-Correct action to take to follow pre-procedure instructions METHOD OF INSTRUCTION: Written instruction/Handouts Verbal instruction FOLLOW-UP PLAN: Patient instructed to call with any further issues Follow-up with Primary Care INSTRUCTIONAL AIDS USED: NA SUPPLEMENTAL MATERIAL PROVIDED TO PATIENT: handouts about after anesthesia and after a central line placement sent with patient REFERRAL (RECOMMENDATION): None Electronically Signed By: Sherly Thomas [facility] PTT, ANTICOAGULANT THERAPYon 09-05-2024 aPTT Coag (PPP) [Time] 90.3 s High 23.0-32.4 [facility] Comment on above: Order Comment: Speci men Type: BLOOD SPECIMENOrdering Facility: [facility] Address: [address] [place] [address] Performed By: #### P TTAC ####[facility]OSPITALIA [id number] [address] [place] aPTT Coag (PPP) [Time] 65.0 s High 23.0-32.4 [facility] Comment on above: Order Comment: Speci men Type: BLOOD SPECIMENOrdering Facility: [facility] Address: [address] [place] [address] Performed By: #### P TTAC ####[facility]ITALIA [id number] [place] [id number] [place] Renal function 2000 panelon 09-05-2024 Albumin [Mass/Vol] 3.6 g/dL Low 3.9-4.[address] [facility] Comment on above: Order Comment: Speci men Type: BLOOD SPECIMENOrdering Facility: [facility] Address: [address] [place] [address] Performed By: #### 1 9123-9, 95409-2, 2571-8 ####[facility] [id number] [address] [place] Anion gap [Moles/Vol] 11 mmol/L Normal 8-15 [facility] Comment on above: Order Comment: Speci men Type: BLOOD SPECIMENOrdering Facility: [facility] Address: [address] [place] [address] Performed By: #### 1 9123-9, 82709-4, 8 ####[facility] LABORATORYCLIA [id number] [place] [address] [place] Calcium [Mass/Vol] 10.1 mg/dL Normal 8.5-10.2 [facility] Comment on above: Order Comment: Speci men Type: BLOOD SPECIMENOrdering Facility: [facility] Address: [address] [place] [address] Performed By: #### 1 9123-9, 91503-8, 8 ####[facility] LABORATORYCLIA [id number] [place] [address] [place] Chloride [Moles/Vol] 96 mmol/L Low 98-107 [facility] Comment on above: Order Comment: Speci men Type: BLOOD SPECIMENOrdering Facility: [facility] Address: [address] [place] [address] Performed By: #### 1 9123-9, 06783-6, 2571-02 ####[facility] HOSPITALIA [id number] [place] [address] [place] CO2 [Moles/Vol] 30 mmol/L Normal 22-30 [facility] Comment on above: Order Comment: Speci men Type: BLOOD SPECIMENOrdering Facility: [facility] Address: [address] [place] [address] Performed By: #### 1 9123-9, 24366-1, 8 ####[facility] LABORATORYCLIA [id number] [place] [address] [place] Creatinine [Mass/Vol] 0.66 mg/dL Normal 0.58-0.96 [facility] Comment on above: Order Comment: Speci men Type: BLOOD SPECIMENOrdering Facility: [facility] Address: [address] [place] [address] Performed By: #### 1 9123-9, 16707-6, 257-8 ####[facility] LABORATORYCLIA [id number] [facility] [place] [address] [place] Creatinine and Glomerular filtration rate.predicted panel (S/P/Bld) 117 mL/min/1.73m??? Normal >=60 [facility] Comment on above: Order Comment: Elfego pollock Type: BLOOD SPECIMENOrdering Facility: [facility] Address: [address] [place] [address] Result Comment: Desiree mated Glomerular Filtration Rate (eGFR) is calculated using the 2020 CKD-EPI creatinine equation. This equation utilizes serum creatinine, sex, and age as parameters. The creatinine assay has traceable calibration to isotope dilution-mass spectrometry. Refer to KDIGO guidelines for clinical interpretation. In patients with unstable renal function, e.g. those with acute kidney injury, the eGFR may not accurately reflect actual GFR. Performed By: #### 1 9123-9, 16978-7, 257-8 ####[facility] LABORATORYCLIA [id number] [place] [address] [place] Glucose [Mass/Vol] 93 mg/dL Normal 74-[address] [facility] Comment on above: Order Comment: Elfego maris Type: BLOOD SPECIMENOrdering Facility: [facility] Address: [address] [place] [address] Result Comment: The [place] Diabetes Association (ADA) provides guidance for cutoff values for fasting glucose and random glucose. The ADA defines fasting as no caloric intake for at least 8 hours. Fasting plasma glucose results between 100 to 125 mg/dL indicate increased risk for diabetes (prediabetes). Fasting plasma glucose results greater than or equal to 126 mg/dL meet the criteria for diagnosis of diabetes. In the absence of unequivocal hyperglycemia, results should be confirmed by repeat testing. In a patient with classic symptoms of hyperglycemia or hyperglycemic crisis, random plasma glucose results greater than or equal to 200 mg/dL meet the criteria for diagnosis of diabetes. Reference: Standards of Medical Care in Diabetes 2016, [place] Diabetes Association. Diabetes Care. 2016.39(Suppl 1). Performed By: #### 1 9123-9, 08909-6, 257-8 ####[facility] LABORATORYCLIA [id number] [place] [address] [place] Phosphate [Mass/Vol] 5.1 mg/dL High 2.7-4.8 [facility] Comment on above: Order Comment: Speci men Type: BLOOD SPECIMENOrdering Facility: [facility] Address: [address] [place] [address] Performed By: #### 1 9123-9, 90609-1, 2571-02 ####[facility] LABORATORYCLIA [id number] [place] [address] [place] Potassium [Moles/Vol] 4.0 mmol/L Normal 3.7-5.1 [facility] Comment on above: Order Comment: Speci men Type: BLOOD SPECIMENOrdering Facility: [facility] Address: [address] [place] [address] Performed By: #### 1 9123-9, 92084-2, 2571-02 ####[facility] LABORATORYCLIA [id number] [place] [address] [place] Sodium [Moles/Vol] 137 mmol/L Normal 136-[address] [facility] Comment on above: Order Comment: Speci men Type: BLOOD SPECIMENOrdering Facility: [facility] Address: [address] [place] [address] Performed By: #### 1 9123-9, 53389-7, 2571-02 ####[facility] LABORATORYCLIA [id number] [place] [address] [place] Urea nitrogen [Mass/Vol] 12 mg/dL Normal 7-21 [facility] Comment on above: Order Comment: Speci men Type: BLOOD SPECIMENOrdering Facility: [facility] Address: [address] [place] [address] Performed By: #### 1 9123-9, 93068-0, 2571-02 ####[facility] LABORATORYCLIA [id number] [place] [address] [place] Trigl SerPl-mCncon 5 Triglyceride [Mass/Vol] 85 mg/dL Normal <150 [facility] Comment on above: Order Comment: Speci men Type: BLOOD SPECIMENOrdering Facility: [facility] Address: [address] [place], [place] [address] Result Comment: <150 mg/dL, Normal 150-199 mg/dL, Borderline high 200-499 mg/dL, High >499 mg/dL, Very high Reference: 1. National Cholesterol Education Program ATP III Guideline At-A-Glance Quick Desk Reference: National Heart, Lung, and Blood [place]. National Institutes of Health. 2001: NIH Publication No. 01-3305. Performed By: #### 1 9123-9, 59734-2, 8 ####[facility] LABORATORYCLIA [id number] [place] [address] [place] Triglyceride [Mass/Vol]on FASTING TIME 9 hrs Normal [facility] Comment on above: Order Comment: Speci men Type: BLOOD SPECIMENOrdering Facility: [facility] Address: [address] [place] [address] Performed By: #### 1 9123-9, 52457-5, 2571-02 ####[facility] LABORATORYCLIA [id number] [facility] [place] [address] [place] Basic metabolic 2000 panelon 09-04-2024 Anion gap [Moles/Vol] 11 mmol/L Normal 8-15 [facility] Comment on above: Order Comment: Speci men Type: BLOOD SPECIMENOrdering Facility: [facility] Address: [address] [place] [address] Performed By: #### 2 4325-3, , , 1987-11 ####[facility] LABORATORYCLIA [id number] [facility] [place] [address] [place] Calcium [Mass/Vol] 9.9 mg/dL Normal 8.5-10.[address] [facility] Comment on above: Order Comment: Speci men Type: BLOOD SPECIMENOrdering Facility: [facility] Address: [address] [place], [place] [address] Performed By: #### 2 4325-3, 57066-7, , 1987-11 ####[facility]ITALIA [id number] [place] [address] [place] Chloride [Moles/Vol] 96 mmol/L Low 98-107 [facility] Comment on above: Order Comment: Speci men Type: BLOOD SPECIMENOrdering Facility: [facility] Address: [address] [place] [address] Performed By: #### 2 4325-3, , , 1987-11 ####[facility] H[facility]PITALIA [id number] [place] [address] [place] CO2 [Moles/Vol] 30 mmol/L Normal 22-30 [facility] Comment on above: Order Comment: Speci men Type: BLOOD SPECIMENOrdering Facility: [facility] Address: [address] [place] [address] Performed By: #### 2 4325-3, , , 1987-11 ####[facility] [id number] [place] [id number] [place] Creatinine [Mass/Vol] 0.66 mg/dL Normal 0.58-0.96 [facility] Comment on above: Order Comment: Speci men Type: BLOOD SPECIMENOrdering Facility: [facility] Address: [address] [place] [address] Performed By: #### 2 4325-3, , , 1987-11 ####[facility] [id number] [place] [address] [place] Creatinine and Glomerular filtration rate.predicted panel (S/P/Bld) 117 mL/min/1.73m??? Normal >=60 [facility] l Comment on above: Order Comment: Speci men Type: BLOOD SPECIMENOrdering Facility: [facility] Address: [address] [place] [address] Result Comment: Desiree mated Glomerular Filtration Rate (eGFR) is calculated using the 2020 CKD-EPI creatinine equation. This equation utilizes serum creatinine, sex, and age as parameters. The creatinine assay has traceable calibration to isotope dilution-mass spectrometry. Refer to KDIGO guidelines for clinical interpretation. In patients with unstable renal function, e.g. those with acute kidney injury, the eGFR may not accurately reflect actual GFR. Performed By: #### 2 4325-3, , , 1987-11 ####[facility] LABORATORYCLIA [id number] [place] [address] [place] Glucose [Mass/Vol] 90 mg/dL Normal 74-[address] [facility] Comment on above: Order Comment: Speci men Type: BLOOD SPECIMENOrdering Facility: [facility] Address: [address] [place] [address] Result Comment: The [place] Diabetes Association (ADA) provides guidance for cutoff values for fasting glucose and random glucose. The ADA defines fasting as no caloric intake for at least 8 hours. Fasting plasma glucose results between 100 to 125 mg/dL indicate increased risk for diabetes (prediabetes). Fasting plasma glucose results greater than or equal to 126 mg/dL meet the criteria for diagnosis of diabetes. In the absence of unequivocal hyperglycemia, results should be confirmed by repeat testing. In a patient with classic symptoms of hyperglycemia or hyperglycemic crisis, random plasma glucose results greater than or equal to 200 mg/dL meet the criteria for diagnosis of diabetes. Reference: Standards of Medical Care in Diabetes 2016, [place] Diabetes Association. Diabetes Care. 2016.39(Suppl 1). Performed By: #### 2 4325-3, , , 1987-11 ####[facility] LABORATORYCLIA [id number] [place] [address] [place] Potassium [Moles/Vol] 4.0 mmol/L Normal 3.7-5.1 [facility] Comment on above: Order Comment: Elfego pollock Type: BLOOD SPECIMENOrdering Facility: [facility] Address: [address] [place] [address] Performed By: #### 2 4325-3, , , 1987-11 ####[facility] LABORATORYCLIA [id number] [place] [address] [place] Sodium [Moles/Vol] 137 mmol/L Normal 136-[address] [facility] Comment on above: Order Comment: Speci men Type: BLOOD SPECIMENOrdering Facility: [facility] Address: [address] [place] [address] Performed By: #### 2 4325-3, , , 1987-11 ####[facility] LABORATORYCLIA [id number] [place] [address] [place] Urea nitrogen [Mass/Vol] 16 mg/dL Normal 7-21 [facility] Comment on above: Order Comment: Speci men Type: BLOOD SPECIMENOrdering Facility: [facility] Address: [address] [place] [address] Performed By: #### 2 432-3, , , 1987-11 ####[facility] LABORATORYCLIA [id number] [place] [address] [place] CBC panel Auto (Bld)on 09-04 Erythrocyte distribution width (RBC) [Ratio] 14.6 % Normal 11.5-15.0 [facility] Comment on above: Order Comment: Speci men Type: BLOOD SPECIMENOrdering Facility: [facility] Address: [address] [place] [address] Performed By: #### 5 8410-2 ####[facility]ITALIA [id number] [place] [address] [place] Hematocrit (Bld) [Volume fraction] 28.3 % Low 36.0-46.0 [facility] Comment on above: Order Comment: Speci men Type: BLOOD SPECIMENOrdering Facility: [facility] Address: [address] [place] [address] Performed By: #### 5 8410-2 ####[facility] LABORATORYIA [id number] [place] [address] [place] Hemoglobin (Bld) [Mass/Vol] 8.9 g/dL Low 11.5-15.5 [facility] Comment on above: Order Comment: Speci men Type: BLOOD SPECIMENOrdering Facility: [facility] Address: [address] [place] [address] Performed By: #### 5 8410-2 ####[facility]ITALIA [id number] [address] [place] MCH (RBC) [Entitic mass] 27.9 pg Normal 26.0-34.0 [facility] Comment on above: Order Comment: Speci men Type: BLOOD SPECIMENOrdering Facility: [facility] Address: [address] [place] [address] Performed By: #### 5 8410-2 ####[facility] [id number] [place] [address] [place] MCHC (RBC) [Mass/Vol] 31.4 g/dL Normal 30.5-36.0 [facility] Comment on above: Order Comment: Speci men Type: BLOOD SPECIMENOrdering Facility: [facility] Address: [address] [place] [address] Performed By: #### 5 8410-2 ####[facility] [id number] [address] [place] MCV (RBC) [Entitic vol] 88.7 fL Normal 80.0-100.0 [facility] Comment on above: Order Comment: Speci men Type: BLOOD SPECIMENOrdering Facility: [facility] Address: [address] [place] [address] Performed By: #### 5 8410-2 ####[facility] [id number] [address] [place] Nucleated RBC (Bld) [#/Vol] 10*3/uL Normal <0.01 [facility] Comment on above: Order Comment: Speci men Type: BLOOD SPECIMENOrdering Facility: [facility] Address: [address] [place] [address] Performed By: #### 5 8410-2 ####[facility] [id number] [place] [id number] [place] Platelet mean volume (Bld) [Entitic vol] 10.4 fL Normal 9.0-12.7 [facility] l Comment on above: Order Comment: Speci men Type: BLOOD SPECIMENOrdering Facility: [facility] Address: [address] [place] [address] Performed By: #### 5 8410-2 ####[facility] LABORATORYCLIA [id number] [facility] [place] [address] [place] Platelets (Bld) [#/Vol] 427 10*3/uL High 150-400 [facility] Comment on above: Order Comment: Speci men Type: BLOOD SPECIMENOrdering Facility: [facility] Address: [address] [place] [address] Performed By: #### 5 8410-2 ####[facility]ITALIA [id number] [place] [address] [place] RBC (Bld) [#/Vol] 3.19 10*6/uL Low 3.90-5.20 [facility] Comment on above: Order Comment: Speci men Type: BLOOD SPECIMENOrdering Facility: [facility] Address: [address] [place] [address] Performed By: #### 5 8410-2 ####[facility]ITALIA [id number] [place] [address] [place] WBC (Bld) [#/Vol] 5.17 10*3/uL Normal 3.70-11.00 [facility] Comment on above: Order Comment: Speci men Type: BLOOD SPECIMENOrdering Facility: [facility] Address: [address] [place] [address] Performed By: #### 5 8410-2 ####[facility] LABORATORYIA [id number] [place] [address] [place] CRP SerPl-mCncon 09-04-2024 CRP [Mass/Vol] 2.0 mg/dL High <0.9 [facility] Comment on above: Order Comment: Speci men Type: BLOOD SPECIMENOrdering Facility: [facility] Address: [address] [place], [place] [address] Performed By: #### 2 4325-3, 28272-3, 76146-5, 1987-11 ####[facility]ITALIA [id number] [place] [address] [place] Hepatic function 2000 panelo n 09-04-2024 Albumin [Mass/Vol] 3.6 g/dL Low 3.9-4.[address] [facility] Comment on above: Order Comment: Speci men Type: BLOOD SPECIMENOrdering Facility: [facility] Address: [address] [place], [place] [address] Performed By: #### 2 4325-3, , , 1987-11 ####[facility]ITALIA [id number] [place] [address] [place] ALP [Catalytic activity/Vol] 236 U/L High 34-123 [facility] Comment on above: Order Comment: Speci men Type: BLOOD SPECIMENOrdering Facility: [facility] Address: [address] [place], [place] [address] Performed By: #### 2 4325-3, , , 1987-11 ####[facility]ITALIA [id number] [place] [address] [place] ALT [Catalytic activity/Vol] 20 U/L Normal 7-38 [facility] Comment on above: Order Comment: Speci men Type: BLOOD SPECIMENOrdering Facility: [facility] Address: [address] [place], [place] [address] Performed By: #### 2 4325-3, , 78281-1, 1987-11 ####[facility]ITALIA [id number] [place] [address] [place] AST [Catalytic activity/Vol] 18 U/L Normal 13-35 [facility] Comment on above: Order Comment: Speci men Type: BLOOD SPECIMENOrdering Facility: [facility] Address: [address] [place] [address] Performed By: #### 2 4325-3, , , 1987-11 ####[facility]ITALIA [id number] [place] [address] [place] Bilirubin [Mass/Vol] 0.2 mg/dL Normal 0.2-1.3 [facility] Comment on above: Order Comment: Speci men Type: BLOOD SPECIMENOrdering Facility: [facility] Address: [address] [place] [address] Performed By: #### 2 4324-3, , , 1987-11 ####[facility]ITALIA [id number] [place] [address] [place] Bilirubin.conjugated [Mass/Vol] 0.1 mg/dL Normal <0.3 [facility] Comment on above: Order Comment: Speci men Type: BLOOD SPECIMENOrdering Facility: [facility] Address: [address] [place] [address] Performed By: #### 2 4324-3, , , 1987-11 ####[facility] [id number] [place] [address] [place] Protein [Mass/Vol] 6.8 g/dL Normal 6.3-8.[address] [facility] Comment on above: Order Comment: Speci men Type: BLOOD SPECIMENOrdering Facility: [facility] Address: [address] [place] [address] Performed By: #### 2 4324-3, , , 1987-11 ####[facility]ITALIA [id number] [place] [address] [place] Magnesium SerPl-mCncon 09-04 Magnesium [Mass/Vol] 1.9 mg/dL Normal 1.7-2.3 [facility] Comment on above: Order Comment: Speci men Type: BLOOD SPECIMENOrdering Facility: [facility] Address: [address] [place] [address] Performed By: #### 2 4324-3, , , 1987-11 ####[facility] LABORATORYCLIA [id number] [place] [address] [facility] NUTRITIONon 09-04-2024 NUTRITION HNO ID: [id number] Author: GOSIA BAIG RD Service: Nutrition Therapy Author Type: Registered Dietitian Type: Nutrition Filed: 09/04/2024 14:33 Note Text: NUTRITION THERAPY INITIAL ASSESSMENT SERVICE DATE: 09/04/2024 SERVICE TIME: 1200 Nutrition Assessment: Recommended Malnutrition Diagnosis: Moderate Protein-Calorie Malnutrition In the context of: Chronic Illness or Injury Based on: Subcutaneous Fat Loss, Muscle Loss Anatomy: (per op note 08/18): intact stomach and duodenum, 130 cm SB to EI; majority of colon (from mid-ascending colon to sigmoid colon) OOC; -ICV, +R, +Anus. Per d/c note on 08/30/24 Nutrition Diagnosis: Problem: Suboptimal oral intake Related to: Altered GI function As evidenced by: Depletion of fat/muscle stores, Medical condition, Procedure/surgery, Patient/family self-report, Imaging studies Care Plan: Change diet to GI soft, Gluten Controlles, 10g sugar (pt asking for lactose to be discontinued) Supplements: Ensure Max, Drip Drop Diet - GI soft, lactose controlled, gluten free (per pt preference) - 10 gm sugar (to control ostomy output) Supplements - Ensure Max - Drip Drop Medications - Imodium 4 mg 30 min before meals + bedtime - Lomotil 2.5 mg TID - 30 min before meals + bedtime Parenteral Nutrition - Infuse 3500mL over 12 hours, 1 hr taper up, 1 hour taper down. (850kcal dextrose, 105g AA x 2 days per wk; 3-in-1 with 438mL SMOFlipid x 5 days per wk). Labs: per HPN per d/c note on 08/30/24 Parenteral Nutrition Parenteral Needs: Hold (Pt didn't receive TPN last night) Parental Nutrition Hold: Plan for Reece tomorrow; Please run [id number] @ 125mL/hr or even higher 145mL/hr d/t High ostomy output PN Type: Central PN Recommended Parenteral Access Change To: Reece (PICC removed) Indications: Short Bowel Syndrome, High ostomy output Volume (mL): 3500 Infusion Hours: 12 hours cycled Taper: Up one hour, Down one hour PN Additives: MTE-4, MVI, Zinc Dextrose: At goal Protein: At goal Lipids: (Remove 438mL of water on lipid days and add 626kcals SMOF) Monitor and Evaluation: Monitor bowel function, Monitor fluid/electrolyte balance, Monitor labs, I/Os, vital signs, weight HPI: 38 y.o. 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 Pt presents to ED on 09/01 with a clotted LUE PICC line. RD: Met with pt today d/t home PN; Pt d/c x 2 days from and admitted here at [facility] 09/01-09/02/24; CPN ordered for last night as RD got approval to start PN, pt didn't receive this and now NS infusing at 75mL/hr; Will likely need higher volume until line placed d/t ABEL. Intake History: Nutrition Intake Prior to Admission: Greater than 75% estimated energy needs (Pt discharged from 08/30/2024 on CPN >out of hospital x 2 days) Current Nutrition Intake: 0-25% estimated energy needs Current Intake Over time: (~3 days (No TPN 09/01, 09/02, 09/03 and tonight); plan for reece tomorrow.) Dosing Weight: 52.4 kg (115 lb 8.3 oz) Dosing Weight Type: Admit weight Estimated kilocalorie needs: 6690-0437 Calorie Calculation Method: (30-40kcals/kg) Estimated protein needs (grams): 79-105 Grams protein determined by: 20% of estimated energy needs Diet Orders (From admission, onward) Start Ordered 09/05/24 0001 DIET NPO AFTER MIDNIGHT Question Answer Comment NPO Restrictions EXCEPT MEDS NPO Restrictions EXCEPT SIPS OF WATER 09/04/24 0832 09/05/24 0001 DIET NPO AFTER MIDNIGHT Question: NPO Restrictions Answer: EXCEPT MEDS 09/04/24 0951 09/04/24 1200 DIET GASTRO INTESTINAL START NOW Question Answer Comment Gastro Intestinal FIBER CONTROLLED Gastro Intestinal GLUTEN CONTROLLED Gastro Intestinal LACTOSE CONTROLLED Gastro Intestinal LOW SUGAR 10 GM 09/04/24 1152 Anthropometrics: Weight: 52.4 kg (115 lb 8.3 oz) Usual Weight: 55.3 kg (122 lb) March 31, 2024 Usual Weight Obtained From: Chart Review Body mass index is 18.65 kg/m?. Weight change percentage over time: Down 3.9% x 1 mth and -5.2% x 6 mths Weight Change: Not clinically significant weight loss Physical Exam: Subcutaneous fat loss: Subcutaneous Fat Loss Assessed Orbital: Slightly dark circles, somewhat hollow look (Mod) Upper Arm (Triceps): Adequate fat tissue (no loss) Muscle loss: Muscle Loss Assessed Temporalis: Slight depression (Mild) Clavicle: More prominent bone, less prominent muscle (Mild) Acromion: Acromion process slightly protrudes (Mild) Scapula: Slight depression, bone slightly show (Mild) Interosseous (Hand): Slight depression of muscle (Mild) Quadricep: Mild depression on inner thigh, kneecap more prominent (Mod) Gastrocnemius: Not well-developed muscle (Mod) Potential micronutrient deficiency: Skin Edema/Ascites: No edema GI Symptoms: High ostomy output Ostomy Amount: Elevated (1350mL x 1 shift) Functional Status: Unable to assess Potential Signs of (more content not included)... Normal [facility] PTT, ANTICOAGULANT THERAPYon 09-04-2024 aPTT Coag (PPP) [Time] 60.9 s High 23.0-32.4 [facility] Comment on above: Order Comment: Speci men Type: BLOOD SPECIMENOrdering Facility: [facility] Address: [address] [place] [address] Performed By: #### P TTAC ####[facility] LABORATORYCLIA [id number] [place] [address] [place] aPTT Coag (PPP) [Time] 65.0 s High 23.0-32.4 [facility] Comment on above: Order Comment: Speci men Type: BLOOD SPECIMENOrdering Facility: [facility] Address: [address] [place] [address] Performed By: #### P TTAC ####[facility] LABORATORYCLIA [id number] [place] [address] [place] Phosphate SerPl-mCncon 09-04 Phosphate [Mass/Vol] 6.0 mg/dL High 2.7-4.8 [facility] Comment on above: Order Comment: Speci men Type: BLOOD SPECIMENOrdering Facility: [facility] Address: [address] [place] [address] Performed By: #### 2 777-1 ####[facility] LABORATORYCLIA [id number] [place] [address] [facility] [place] TOXICOLOGY SCREEN, ROUTINE U RINEon 09-04-2024 Amphetamines Confirm (U) [Mass/Vol] Negative Normal Negative [facility] Comment on above: Order Comment: Speci men Type: URINE SPECIMENOrdering Facility: [facility] Address: [address] [place] [address] Result Comment: Cuto ff threshold at 1000 ng/mL. Performed By: #### U TOX2 ####[facility] LABORATORYCLIA [id number] [place] [address] [place] BARBITURATES, URINE Negative Normal Negative [facility] Comment on above: Order Comment: Speci men Type: URINE SPECIMENOrdering Facility: [facility] Address: [address] [place] [address] Result Comment: Cuto ff threshold at 200 ng/mL. Performed By: #### U TOX2 ####[facility] LABORATORYIA [id number] [place] [address] [place] BENZODIAZEPINES, UR Positive Abnormal Negative [facility] Comment on above: Order Comment: Speci men Type: URINE SPECIMENOrdering Facility: [facility] Address: [address] [place] [address] Result Comment: Cuto ff threshold at 200 ng/mL. Performed By: #### U TOX2 ####[facility] LABORATORYIA [id number] [place] [id number] [place] Cannabinoids Screen Ql (U) Positive Abnormal Negative [facility] Comment on above: Order Comment: Speci men Type: URINE SPECIMENOrdering Facility: [facility] Address: [address] [place] [address] Result Comment: Cuto ff threshold at 50 ng/mL. Performed By: #### U TOX2 ####[facility] LABORATORYCLIA [id number] [place] [address] [place] Cocaine Ql (U) Negative Normal Negative [facility] Comment on above: Order Comment: Speci men Type: URINE SPECIMENOrdering Facility: [facility] Address: [address] [place] [address] Result Comment: Cuto ff threshold at 300 ng/mL. Performed By: #### U TOX2 ####[facility] LABORATORYCLIA [id number] [place] [address] [place] Ethanol (U) [Mass/Vol] <11 Normal <11 [facility] Comment on above: Order Comment: Speci men Type: URINE SPECIMENOrdering Facility: [facility] Address: [address] [place] [address] Performed By: #### U TOX2 ####[facility] LABORATORYIA [id number] [place] [address] [place] Opiates Screen Ql (U) Negative Normal Negative [facility] Comment on above: Order Comment: Speci men Type: URINE SPECIMENOrdering Facility: [facility] Address: [address] [place] [address] Result Comment: Cuto ff threshold at 300 ng/mL. Performed By: #### U TOX2 ####[facility] LABORATORYIA [id number] [place] [address] [place] oxyCODONE cutoff Screen (U) [Mass/Vol] Positive Abnormal Negative [facility] Comment on above: Order Comment: Speci men Type: URINE SPECIMENOrdering Facility: [facility] Address: [address] [place] [address] Result Comment: Cuto ff threshold at 100 ng/mL. Performed By: #### U TOX2 ####[facility] LABORATORYIA [id number] [place] [address] [place] Phencyclidine Ql (U) Negative Normal Negative [facility] Comment on above: Order Comment: Speci men Type: URINE SPECIMENOrdering Facility: [facility] Address: [address] [place] [address] Result Comment: Cuto ff threshold at 25 ng/mL. Performed By: #### U TOX2 ####[facility] LABORATORYIA [id number] [place] [id number] [place] CBC panel Auto (Bld)on 09-03 Erythrocyte distribution width (RBC) [Ratio] 14.9 % Normal 11.5-15.0 [facility] Comment on above: Order Comment: Speci men Type: BLOOD SPECIMENOrdering Facility: [facility] Address: [address] [place] [address] Performed By: #### 5 8410-2 ####[facility]IA [id number] [address] [place] Hematocrit (Bld) [Volume fraction] 30.1 % Low 36.0-46.0 [facility] Comment on above: Order Comment: Speci men Type: BLOOD SPECIMENOrdering Facility: [facility] Address: [address] [place] [address] Performed By: #### 5 8410-2 ####[facility] [id number] [place] [address] [place] Hemoglobin (Bld) [Mass/Vol] 9.3 g/dL Low 11.5-15.5 [facility] Comment on above: Order Comment: Speci men Type: BLOOD SPECIMENOrdering Facility: [facility] Address: [address] [place] [address] Performed By: #### 5 8410-2 ####[facility]ORATORYIA [id number] [place] [id number] [place] MCH (RBC) [Entitic mass] 27.4 pg Normal 26.0-34.0 [facility] Comment on above: Order Comment: Speci men Type: BLOOD SPECIMENOrdering Facility: [facility] Address: [address] [place] [address] Performed By: #### 5 8410-2 ####[facility] [id number] [place] [address] [place] MCHC (RBC) [Mass/Vol] 30.9 g/dL Normal 30.5-36.0 [facility] Comment on above: Order Comment: Speci men Type: BLOOD SPECIMENOrdering Facility: [facility] Address: [address] [place] [address] Performed By: #### 5 8410-2 ####[facility]ITALIA [id number] [place] [address] [place] MCV (RBC) [Entitic vol] 88.8 fL Normal 80.0-100.0 [facility] Comment on above: Order Comment: Speci men Type: BLOOD SPECIMENOrdering Facility: [facility] Address: [address] [place] [address] Performed By: #### 5 8410-2 ####[facility] [id number] [place] [address] [place] Nucleated RBC (Bld) [#/Vol] 10*3/uL Normal <0.01 [facility] Comment on above: Order Comment: Speci men Type: BLOOD SPECIMENOrdering Facility: [facility] Address: [address] [place] [address] Performed By: #### 5 8410-2 ####[facility] [id number] [place] [address] [place] Platelet mean volume (Bld) [Entitic vol] 10.3 fL Normal 9.0-12.7 [facility] Comment on above: Order Comment: Speci men Type: BLOOD SPECIMENOrdering Facility: [facility] Address: [address] [place] [address] Performed By: #### 5 8410-2 ####[facility] [id number] [place] [address] [place] Platelets (Bld) [#/Vol] 456 10*3/uL High 150-400 [facility] Comment on above: Order Comment: Speci men Type: BLOOD SPECIMENOrdering Facility: [facility] Address: [address] [place] [address] Performed By: #### 5 8410-2 ####[facility]ITALIA [id number] [place] [id number] [facility] RBC (Bld) [#/Vol] 3.39 10*6/uL Low 3.90-5.20 [facility] Comment on above: Order Comment: Speci men Type: BLOOD SPECIMENOrdering Facility: [facility] Address: [address] [place] [address] Performed By: #### 5 8410-2 ####[facility]IA [id number] [place] [id number] [facility] WBC (Bld) [#/Vol] 7.73 10*3/uL Normal 3.70-11.00 [facility] Comment on above: Order Comment: Speci men Type: BLOOD SPECIMENOrdering Facility: [facility] Address: [address] [place] [address] Performed By: #### 5 8410-2 ####[facility]IA [id number] [address] CONSULT PROGon 09-03-2024 CONSULT PROG HNO ID: [id number] Author: SHERLY LORENZO DO Service: Hematology/Oncology Author Type: Physician Type: Consult Progress Note Filed: 09/03/2024 11:01 Note Text: Heme Patient is iron deficient, will give Ferrlecit while here in the hospital. Note that IR has been consulted to place central line for TPN Normal [facility] Magnesium SerPl-mCncon 09-03 Magnesium [Mass/Vol] 2.0 mg/dL Normal 1.7-2.3 [facility] Comment on above: Order Comment: Speci men Type: BLOOD SPECIMENOrdering Facility: [facility] Address: [address] [place] [address] Performed By: #### 1 9123-9, 42509-9 ####[facility]OSPITALIA [id number] [facility] [address] NUTRITIONon 09-03-2024 NUTRITION HNO ID: [id number] Author: GHASSAN MARSH RD Service: Nutrition Therapy Author Type: Registered Dietitian Type: Nutrition Filed: 09/03/2024 08:59 Note Text: NUTRITION BRIEF NOTE SERVICE DATE: 09/03/2024 Care Plan: Change diet to GI soft, Gluten Controlles, [place] Controlled, 10g sugar per recent admission at [facility] Supplements: Ensure Max, Drip Drop Parenteral Nutrition Parenteral Needs: Start PN Type: Central PN Recommended Parenteral Access Change To: Reece Indications: Short Bowel Syndrome Volume (mL): 3500 Infusion Hours: 12 hours cycled Taper: Up one hour, Down one hour PN Additives: MTE-4, MVI, Zinc Dextrose: At goal Protein: At goal Lipids: SMOFlipid, 3-in-1 infusion (5 days per week) Interval History: RD currently offsite at [facility]. Patient with recent d/c from [facility]. Plan for IR this admission for Reece placement. Per Dr. Dwayne hoffmann to use current PICC for TPN. Orders written and pended. Full assessment to follow. MNT Billing: $ Routine Care : 1-15 minutes SIGNATURE: Ghassan Marsh RD, DATE: 09/03/2024 TIME: 8:57 AM [facility] PTT, ANTICOAGULANT THERAPYon 09-03-2024 aPTT Coag (PPP) [Time] 32.8 s High 23.0-32.4 [facility] Comment on above: Order Comment: Speci men Type: BLOOD SPECIMENOrdering Facility: [facility] Address: [address] [place] [address] Performed By: #### P TTAC ####[facility] LABORATORYCLIA [id number] [address] aPTT Coag (PPP) [Time] 34.5 s High 23.0-32.4 [facility] Comment on above: Order Comment: Darryli men Type: BLOOD SPECIMENOrdering Facility: [facility] Address: [address] [place] [address] Performed By: #### P TTAC ####[facility] LABORATORYCLIA [id number] [place] [address] [place] Renal function 2000 panelon 09-03-2024 Albumin [Mass/Vol] 3.8 g/dL Low 3.9-4.9 [facility] Comment on above: Order Comment: Speci men Type: BLOOD SPECIMENOrdering Facility: [facility] Address: [address] [place] [address] Performed By: #### 1 9123-9, 09356-2 ####[facility] LABORATORYIA [id number] [place] [address] [place] Anion gap [Moles/Vol] 15 mmol/L Normal 8-15 [facility] Comment on above: Order Comment: Speci men Type: BLOOD SPECIMENOrdering Facility: [facility] Address: [address] [place] [address] Performed By: #### 1 9123-9, 79313-5 ####[facility]ITALIA [id number] [place] [address] [place] Calcium [Mass/Vol] 10.5 mg/dL High 8.5-10.2 [facility] Comment on above: Order Comment: Speci men Type: BLOOD SPECIMENOrdering Facility: [facility] Address: [address] [place] [address] Performed By: #### 1 9123-9, 21463-4 ####[facility] [id number] [place] [address] [place] Chloride [Moles/Vol] 95 mmol/L Low 98-107 [facility] Comment on above: Order Comment: Speci men Type: BLOOD SPECIMENOrdering Facility: [facility] Address: [address] [place] [address] Performed By: #### 1 9123-9, 85980-8 ####[facility] LABORATORYIA [id number] [place] [address] [place] CO2 [Moles/Vol] 30 mmol/L Normal 22-30 [facility] Comment on above: Order Comment: Speci men Type: BLOOD SPECIMENOrdering Facility: [facility] Address: [address] [place] [address] Performed By: #### 1 9123-9, 53926-4 ####[facility] LABORATORYCLIA [id number] [place] [address] [place] Creatinine [Mass/Vol] 0.63 mg/dL Normal 0.58-0.96 [facility] Comment on above: Order Comment: Darryli men Type: BLOOD SPECIMENOrdering Facility: [facility] Address: [address] [place] [address] Performed By: #### 1 9123-9, 10886-2 ####[facility] LABORATORYCLIA [id number] [place] [address] [place] Creatinine and Glomerular filtration rate.predicted panel (S/P/Bld) 118 mL/min/1.73m??? Normal >=60 [facility] Comment on above: Order Comment: Elfego men Type: BLOOD SPECIMENOrdering Facility: [facility] Address: [address] [place] [address] Result Comment: Desiree mated Glomerular Filtration Rate (eGFR) is calculated using the 2020 CKD-EPI creatinine equation. This equation utilizes serum creatinine, sex, and age as parameters. The creatinine assay has traceable calibration to isotope dilution-mass spectrometry. Refer to KDIGO guidelines for clinical interpretation. In patients with unstable renal function, e.g. those with acute kidney injury, the eGFR may not accurately reflect actual GFR. Performed By: #### 1 9123-9, 96719-9 ####[facility] LABORATORYCLIA [id number] [place] [address] [place] Glucose [Mass/Vol] 91 mg/dL Normal 74-99 [facility] Comment on above: Order Comment: [facility] Type: BLOOD SPECIMENOrdering Facility: [facility] Address: [address] [place] [address] Result Comment: The [place] Diabetes Association (ADA) provides guidance for cutoff values for fasting glucose and random glucose. The ADA defines fasting as no caloric intake for at least 8 hours. Fasting plasma glucose results between 100 to 125 mg/dL indicate increased risk for diabetes (prediabetes). Fasting plasma glucose results greater than or equal to 126 mg/dL meet the criteria for diagnosis of diabetes. In the absence of unequivocal hyperglycemia, results should be confirmed by repeat testing. In a patient with classic symptoms of hyperglycemia or hyperglycemic crisis, random plasma glucose results greater than or equal to 200 mg/dL meet the criteria for diagnosis of diabetes. Reference: Standards of Medical Care in Diabetes 2016, [place] Diabetes Association. Diabetes Care. 2016.39(Suppl 1). Performed By: #### 1 9123-9, 26443-1 ####[facility]ITALIA [id number] [place] [address] [place] Phosphate [Mass/Vol] 6.6 mg/dL High 2.7-4.8 [facility] Comment on above: Order Comment: Elfego pollock Type: BLOOD SPECIMENOrdering Facility: [facility] Address: [address] [place] [address] Performed By: #### 1 9123-9, 75975-6 ####[facility]ITALIA [id number] [place] [address] [place] Potassium [Moles/Vol] 4.2 mmol/L Normal 3.7-5.1 [facility] Comment on above: Order Comment: Elfego pollock Type: BLOOD SPECIMENOrdering Facility: [facility] Address: [address] [place] [address] Performed By: #### 1 9123-9, 37630-6 ####[facility]ITALIA [id number] [place] [address] [place] Sodium [Moles/Vol] 140 mmol/L Normal 136-[address] [facility] Comment on above: Order Comment: Elfego pollock Type: BLOOD SPECIMENOrdering Facility: [facility] Address: [address] [place] [address] Performed By: #### 1 9123-9, 54561-5 ####[facility] LABORATORYIA [id number] [place] [address] [place] Urea nitrogen [Mass/Vol] 14 mg/dL Normal 7-21 [facility] Comment on above: Order Comment: Speci men Type: BLOOD SPECIMENOrdering Facility: [facility] Address: [address] [place] [address] Performed By: #### 1 9123-9, 82670-7 ####[facility] LABORATORYCLIA [id number] [place] [address] [place] B-HCG SerPl-aCncon 5 HCG.beta subunit Qn m[IU]/mL Normal <5.0 [facility] Comment on above: Order Comment: Speci men Type: BLOOD SPECIMENOrdering Facility: [facility] Address: [address] [place] [address] Result Comment: Neglizzeth meyers Performed By: #### 2 1198-7 ####[facility] LABORATORYCLIA [id number] [place] [address] [place] CBC W Auto Differential pane l (Bld)on 09-02-2024 Basophils (Bld) [#/Vol] 0.05 10*3/uL Normal <0.11 [facility] Comment on above: Order Comment: Speci men Type: BLOOD SPECIMENOrdering Facility: [facility] Address: [address] [place] [address] Performed By: #### 5 7021-8 ####[facility] LABORATORYIA [id number] [place] [id number] [place] Basophils/100 WBC (Bld) 0.5 % Normal [facility] Comment on above: Order Comment: Speci men Type: BLOOD SPECIMENOrdering Facility: [facility] Address: [address] [place] [address] Performed By: #### 5 7021-8 ####[facility] LABORATORYIA [id number] [place] [id number] [place] Differential cell count method Nom (Bld) Auto Normal [facility] Comment on above: Order Comment: Speci men Type: BLOOD SPECIMENOrdering Facility: [facility] Address: [address] [place] [address] Performed By: #### 5 7021-8 ####[facility] LABORATORYCLIA [id number] [place] [id number] [place] Eosinophils (Bld) [#/Vol] 0.20 10*3/uL Normal <0.46 [facility] Comment on above: Order Comment: Speci men Type: BLOOD SPECIMENOrdering Facility: [facility] Address: [address] [place] [address] Performed By: #### 5 7021-8 ####[facility] LABORATORYCLIA [id number] [place] [address] [place] Eosinophils/100 WBC (Bld) 2.0 % Normal [facility] Comment on above: Order Comment: Speci men Type: BLOOD SPECIMENOrdering Facility: [facility] Address: [address] [place] [address] Performed By: #### 5 7021-8 ####[facility]ITALIA [id number] [place] [address] [place] Erythrocyte distribution width (RBC) [Ratio] 15.0 % Normal 11.5-15.0 [facility] Comment on above: Order Comment: Speci men Type: BLOOD SPECIMENOrdering Facility: [facility] Address: [address] [place] [address] Performed By: #### 5 7021-8 ####[facility] LABORATORYIA [id number] [place] [id number] [place] Hematocrit (Bld) [Volume fraction] 26.5 % Low 36.0-46.0 [facility] Comment on above: Order Comment: Speci men Type: BLOOD SPECIMENOrdering Facility: [facility] Address: [address] [place] [address] Performed By: #### 5 7021-8 ####[facility] LABORATORYIA [id number] [place] [address] [place] Hemoglobin (Bld) [Mass/Vol] 8.6 g/dL Low 11.5-15.5 [facility] Comment on above: Order Comment: Speci men Type: BLOOD SPECIMENOrdering Facility: [facility] Address: [address] [place] [address] Performed By: #### 5 7021-8 ####[facility] LABORATORYCLIA [id number] [place] [address] [place] Immature granulocytes (Bld) [#/Vol] 0.05 10*3/uL Normal <0.10 [facility] Comment on above: Order Comment: Speci men Type: BLOOD SPECIMENOrdering Facility: [facility] Address: [address] [place] [address] Performed By: #### 5 7021-8 ####[facility] LABORATORYCLIA [id number] [place] [id number] [facility] Immature granulocytes/100 WBC (Bld) 0.5 % Normal [facility] Comment on above: Order Comment: Speci men Type: BLOOD SPECIMENOrdering Facility: [facility] Address: [address] [place] [address] Performed By: #### 5 7021-8 ####[facility] LABORATORYIA [id number] [place] [address] [place] Lymphocytes (Bld) [#/Vol] 1.61 10*3/uL Normal 1.00-4.00 [facility] Comment on above: Order Comment: Speci men Type: BLOOD SPECIMENOrdering Facility: [facility] Address: [address] [place] [address] Performed By: #### 5 7021-8 ####[facility] LABORATORYCLIA [id number] [place] [address] [place] Lymphocytes/100 WBC (Bld) 16.0 % Normal [facility] Comment on above: Order Comment: Speci men Type: BLOOD SPECIMENOrdering Facility: [facility] Address: [address] [place] [address] Performed By: #### 5 7021-8 ####[facility] LABORATORYCLIA [id number] [place] [address] [place] MCH (RBC) [Entitic mass] 28.6 pg Normal 26.0-34.0 [facility] Comment on above: Order Comment: Speci men Type: BLOOD SPECIMENOrdering Facility: [facility] Address: [address] [place] [address] Performed By: #### 5 7021-8 ####[facility]ORATORYIA [id number] [address] [place] MCHC (RBC) [Mass/Vol] 32.5 g/dL Normal 30.5-36.0 [facility] Comment on above: Order Comment: Speci men Type: BLOOD SPECIMENOrdering Facility: [facility] Address: [address] [place] [address] Performed By: #### 5 7021-8 ####[facility] [id number] [address] [place] MCV (RBC) [Entitic vol] 88.0 fL Normal 80.0-100.0 [facility] Comment on above: Order Comment: Speci men Type: BLOOD SPECIMENOrdering Facility: [facility] Address: [address] [place] [address] Performed By: #### 5 7021-8 ####[facility] [id number] [address] [place] Monocytes (Bld) [#/Vol] 0.74 10*3/uL Normal <0.87 [facility] Comment on above: Order Comment: Speci men Type: BLOOD SPECIMENOrdering Facility: [facility] Address: [address] [place] [address] Performed By: #### 5 7021-8 ####[facility] LABORATORYIA [id number] [address] Monocytes/100 WBC (Bld) 7.4 % Normal [facility] Comment on above: Order Comment: Speci men Type: BLOOD SPECIMENOrdering Facility: [facility] Address: [address] [place] [address] Performed By: #### 5 7021-8 ####[facility] LABORATORYIA [id number] [place] [address] [place] Neutrophils (Bld) [#/Vol] 7.39 10*3/uL Normal 1.45-7.50 [facility] Comment on above: Order Comment: Speci men Type: BLOOD SPECIMENOrdering Facility: [facility] Address: [address] [place] [address] Performed By: #### 5 7021-8 ####[facility] LABORATORYIA [id number] [place] [address] [place] Neutrophils/100 WBC (Bld) 73.6 % Normal [facility] Comment on above: Order Comment: Speci men Type: BLOOD SPECIMENOrdering Facility: [facility] Address: [address] [place] [address] Performed By: #### 5 7021-8 ####[facility]IA [id number] [place] [id number] [place] Nucleated RBC (Bld) [#/Vol] 10*3/uL Normal <0.01 [facility] Comment on above: Order Comment: Speci men Type: BLOOD SPECIMENOrdering Facility: [facility] Address: [address] [place] [address] Performed By: #### 5 7021-8 ####[facility]ITALIA [id number] [place] [address] [place] Nucleated RBC/100 WBC (Bld) [Ratio] 0.0 /100 WBC Normal [facility] Comment on above: Order Comment: Speci men Type: BLOOD SPECIMENOrdering Facility: [facility] Address: [address] [place] [address] Performed By: #### 5 7021-8 ####[facility]ITALIA [id number] [place] [address] [place] Platelet mean volume (Bld) [Entitic vol] 10.4 fL Normal 9.0-12.7 [facility] Comment on above: Order Comment: Speci men Type: BLOOD SPECIMENOrdering Facility: [facility] Address: [address] [place] [address] Performed By: #### 5 7021-8 ####[facility] LABORATORYIA [id number] [place] [address] [facility] Platelets (Bld) [#/Vol] 442 10*3/uL High 150-400 [facility] Comment on above: Order Comment: Speci men Type: BLOOD SPECIMENOrdering Facility: [facility] Address: [address] [place] [address] Performed By: #### 5 7021-8 ####[facility]IA [id number] [place] [address] [facility] RBC (Bld) [#/Vol] 3.01 10*6/uL Low 3.90-5.20 [facility] Comment on above: Order Comment: Speci men Type: BLOOD SPECIMENOrdering Facility: [facility] Address: [address] [place] [address] Performed By: #### 5 7021-8 ####[facility] [id number] [place] [address] [facility] [place] WBC (Bld) [#/Vol] 10.04 10*3/uL Normal 3.70-11.00 [facility] Comment on above: Order Comment: Speci men Type: BLOOD SPECIMENOrdering Facility: [facility] Address: [address] [place] [address] Performed By: #### 5 7021-8 ####[facility]IA [id number] [place] [address] [facility] CONSULTon 09-02-2024 CONSULT HNO ID: [id number] Author: SHERLY LORENZO DO Service: Hematology/Oncology Author Type: Physician Type: Consults Filed: 09/02/2024 09:26 Note Text: Consultation requested by Keyshawn Stone APRN for an opinion regarding DVT while on anticoagulation. My final recommendations will be communicated back to the requesting physician by way of shared medical record or letter via US mail HEME INITIAL CONSULT NOTE SERVICE DATE: 09/02/2024 SERVICE TIME: 9:18 am PRIMARY CARE PHYSICIAN: No primary care provider on file. Subjective Ms. 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 Patient recently discharged on 08/30/24 from . She was discharged home with LUE PICC with nightly TPN. Today her [facility] nurse and boyfriend were having difficulty flushing her PICC line. While in the hospital at still patient had a PICC line in her RUE and developed an acute axillary DVT. This line was removed and one was placed in her LUE. She was seen by vascular and started on lovenox injections with plans to transition to eliquis. She has been very consistent with taking her Lovenox injections. US DVT LUE: Positive study for acute DVT in the left upper extremity. Nonocclusive thrombus associated with indwelling left upper extremity PICC catheter at the left subclavian vein. CXR: Satisfactory left PICC line placement with no evidence of acute disease. . PAST MEDICAL HISTORY Diagnosis Date Crohn disease (HCC) PAST SURGICAL HISTORY Procedure Laterality Date BOWEL RESECTION HX PICC LINE INSERT/CONSULT 08/21/2024 History reviewed. No pertinent family history. (Not in a hospital admission) Current Facility-Administere d Medications Medication Dose Route Frequency heparin iv infusion 25,000 units in NaCl 0.45% 250 mL STANDARD NOMOGRAM 0-3,000 Units/hr INTRAVENOUS CONTINUOUS And heparin RATE CHANGE bolus 1,000-10,000 Units for subtherapeutic PTTAC results 1,000-10,000 Units INTRAVENOUS PRN NaCl 0.9% iv flush bag 20 mL INTRAVENOUS PRN diazePAM 5 mg tab(s) (VALIUM) 5 mg ORAL q 6 H PRN oxyCODONE IR 5-10 mg tab(s) (ROXICODONE) 5-10 mg ORAL q 6 H PRN diphenoxylate-atropi ne 2.5-0.025 mg 2 tablet (LOMOTIL) 2 tablet ORAL AC and HS loperamide 4 mg cap(s) (IMODIUM) 4 mg ORAL AC and HS calcium polycarbophil 625 mg tab(s) (FIBERCON) 625 mg ORAL BID dicyclomine 10 mg cap(s) (BENTYL) 10 mg ORAL TID lactobacillus rhamnosus 10 billion cell (CULTURELLE) capsule 1 capsule ORAL DAILY ondansetron (PF) 4 mg injection (ZOFRAN) 4 mg INTRAVENOUS q [address] 40 mg tab(s) (PROTONIX) 40 mg ORAL DAILY (6 AM) amitriptyline 25 mg tab(s) (ELAVIL) 25 mg ORAL AT BEDTIME acetaminophen 1,000 mg tab(s) (TYLENOL) 1,000 mg ORAL q 6 H PRN citalopram 40 mg tab(s) (CeleXA) 40 mg ORAL DAILY gabapentin 300 mg cap(s) (NEURONTIN) 300 mg ORAL TID hydrOXYzine HCl 25 mg tab(s) (ATARAX) 25 mg ORAL TID PRN midodrine 10 mg tab(s) (PROAMITINE) 10 mg ORAL TID Allergies As of Date: 09/01/2024 Allergen Noted Reaction IBUPROFEN 07/30/2024 Other: See Comments NSAIDS (NON-STEROIDAL ANTI-INFLAM*07/30/19 Other: See Comments Fully Assessed 09/01/2024 COMPLETE REVIEW OF SYSTEMS: Other than my HPI negative Objective PHYSICAL EXAM: Physical Exam Performed: BP 101/50 Pulse 95 Temp (Src) 97.7 (Oral) Resp 18 Wt 105 lb (47.6kg) SpO2 95% O2 Therapy: Room Air This is a young female in no distress at this time Lungs clear anteriorly CV regular rate and rhythm Abdomen status post recent surgery Extremities no edema she does have IV in her left foot and her right leg DATA: Diagnostic tests reviewed for today's visit: Sodium 136 potassium 4.2 chloride 96 CO2 25 creatinine 0.54 protein 6.8 calcium 9.9 magnesium 1.9 albumin 3.3 white count 10 hemoglobin 8.6 plate count 442 MCV 88 Impression/Recommend ations Principal Problem: Acute deep vein thrombosis (DVT) of left upper extremity: Patient has continued to have clots at the site of her PICC line. She did tell me that TPN was attempted and a peripheral line not sure if this was PPN or if it was TPN. At this point I feel she may need possibly different vascular access with plans to do TPN or long-term. May be a Reece or a port needs to be placed. Because this was a provoked clot I recommend continuing heparin while she is here in the hospital and then when she is discharged please turn her on Eliquis for total of 3 months. I do recommend a starters pack when she is discharged. 2. Anemia patient has had severe Crohn's disease I would like to check iron studies to ensure she is not iron deficient and if so we will administer IV iron while she is here in the hospital. Medication and Non-Pharm (more content not included)... Normal [facility] Comprehensive metabolic 2000 panelon 09-02-2024 Albumin [Mass/Vol] 3.3 g/dL Low 3.9-4.[address] [facility] Comment on above: Order Comment: Elfego pollock Type: BLOOD SPECIMENOrdering Facility: [facility] Address: [address] [place] [address] Performed By: #### 2 4323-8, , 2776-07 ####[facility] LABORATORYCLIA [id number] [place] [address] [place] ALP [Catalytic activity/Vol] 211 U/L High 34-123 [facility] Comment on above: Order Comment: Elfego pollock Type: BLOOD SPECIMENOrdering Facility: [facility] Address: [address] [place] [address] Performed By: #### 2 4323-8, , 2776-07 ####[facility] LABORATORYCLIA [id number] [place] [address] [place] ALT [Catalytic activity/Vol] 31 U/L Normal 7-38 [facility] Comment on above: Order Comment: Elfego pollock Type: BLOOD SPECIMENOrdering Facility: [facility] Address: [address] [place] [address] Performed By: #### 2 4323-8, , 2776-07 ####[facility] LABORATORYCLIA [id number] [place] [address] [place] Anion gap [Moles/Vol] 15 mmol/L Normal 8-15 [facility] Comment on above: Order Comment: Speci men Type: BLOOD SPECIMENOrdering Facility: [facility] Address: [address] [place] [address] Performed By: #### 2 4323-8, , 2776-07 ####[facility] LABORATORYCLIA [id number] [place] [address] [place] AST [Catalytic activity/Vol] 31 U/L Normal 13-35 [facility] Comment on above: Order Comment: Speci men Type: BLOOD SPECIMENOrdering Facility: [facility] Address: [address] [place] [address] Performed By: #### 2 4323-8, , 2776-07 ####[facility]NA[facility]URACLIA [id number] [place] [address] [place] Bilirubin [Mass/Vol] 0.2 mg/dL Normal 0.2-1.3 [facility] Comment on above: Order Comment: Speci men Type: BLOOD SPECIMENOrdering Facility: [facility] Address: [address] [place], [place] [address] Performed By: #### 2 4323-8, , 2776-07 ####[facility] HOSPITALIA [id number] [place] [address] [place] Calcium [Mass/Vol] 9.9 mg/dL Normal 8.5-10.[address] [facility] ospital Comment on above: Order Comment: Speci men Type: BLOOD SPECIMENOrdering Facility: [facility] Address: [address] [place], [place] [address] Performed By: #### 2 4323-8, , 2776-07 ####[facility] LABORATORYCLIA [id number] [place] [address] [place] Chloride [Moles/Vol] 96 mmol/L Low 98-107 [facility] Comment on above: Order Comment: Speci men Type: BLOOD SPECIMENOrdering Facility: [facility] Address: [address] [place] [address] Performed By: #### 2 4323-8, 16130-5, 2776-07 ####[facility] LABORATORYCLIA [id number] [place] [address] [place] CO2 [Moles/Vol] 25 mmol/L Normal 22-30 [facility] ital Comment on above: Order Comment: Speci men Type: BLOOD SPECIMENOrdering Facility: [facility] Address: [address] [place], [place] [address] Performed By: #### 2 4323-8, , 2776-07 ####[facility] LABORATORYCLIA [id number] [place] [address] [place] Creatinine [Mass/Vol] 0.54 mg/dL Low 0.58-0.96 [facility] Comment on above: Order Comment: Speci men Type: BLOOD SPECIMENOrdering Facility: [facility] Address: [address] [place] [address] Performed By: #### 2 4323-8, , 2776-07 ####[facility]OS[facility]ITALIA [id number] [place] [address] [place] Creatinine and Glomerular filtration rate.predicted panel (S/P/Bld) 123 mL/min/1.73m??? Normal >=60 [facility] Comment on above: Order Comment: Speci [facility] Type: BLOOD SPECIMENOrdering Facility: [facility] Address: [address] [place] [address] Result Comment: Desiree mated Glomerular Filtration Rate (eGFR) is calculated using the 2020 CKD-EPI creatinine equation. This equation utilizes serum creatinine, sex, and age as parameters. The creatinine assay has traceable calibration to isotope dilution-mass spectrometry. Refer to KDIGO guidelines for clinical interpretation. In patients with unstable renal function, e.g. those with acute kidney injury, the eGFR may not accurately reflect actual GFR. Performed By: #### 2 4323-8, 88520-6, 2776- ####[facility] LABORATORYIA [id number] [place] [address] [place] Glucose [Mass/Vol] 98 mg/dL Normal 74-99 [facility] Comment on above: Order Comment: Speci men Type: BLOOD SPECIMENOrdering Facility: [facility] Address: [address] [place], [place] [address] Result Comment: The [place] Diabetes Association (ADA) provides guidance for cutoff values for fasting glucose and random glucose. The ADA defines fasting as no caloric intake for at least 8 hours. Fasting plasma glucose results between 100 to 125 mg/dL indicate increased risk for diabetes (prediabetes). Fasting plasma glucose results greater than or equal to 126 mg/dL meet the criteria for diagnosis of diabetes. In the absence of unequivocal hyperglycemia, results should be confirmed by repeat testing. In a patient with classic symptoms of hyperglycemia or hyperglycemic crisis, random plasma glucose results greater than or equal to 200 mg/dL meet the criteria for diagnosis of diabetes. Reference: Standards of Medical Care in Diabetes 2016, [place] Diabetes Association. Diabetes Care. 2016.39(Suppl 1). Performed By: #### 2 4323-8, , 2776-07 ####[facility] LABORATORYCLIA [id number] [place] [address] [place] Potassium [Moles/Vol] 4.2 mmol/L Normal 3.7-5.1 [facility] Comment on above: Order Comment: Elfego pollock Type: BLOOD SPECIMENOrdering Facility: [facility] Address: [address] [place], [place] [address] Performed By: #### 2 4323-8, , 2776-07 ####[facility] LABORATORYCLIA [id number] [place] [address] [place] Protein [Mass/Vol] 6.8 g/dL Normal 6.3-8.0 [facility] Comment on above: Order Comment: Darryli men Type: BLOOD SPECIMENOrdering Facility: [facility] Address: [address] [place], [place] [address] Performed By: #### 2 4323-8, , 2777- ####[facility] LABORATORYCLIA [id number] [place] [address] [place] Sodium [Moles/Vol] 136 mmol/L Normal 136-[address] [facility] ospital Comment on above: Order Comment: Speci men Type: BLOOD SPECIMENOrdering Facility: [facility] Address: [address] [place] [address] Performed By: #### 2 4323-8, 76520-5, 2777-1 ####[facility] LABORATORYCLIA [id number] [place] [address] [facility] Urea nitrogen [Mass/Vol] 18 mg/dL Normal 7-21 [facility] Comment on above: Order Comment: Speci men Type: BLOOD SPECIMENOrdering Facility: [facility] Address: [address] [place] [address] Performed By: #### 2 4323-8, 40728-0, 27771 ####[facility] LABORATORYCLIA [id number] [place] [address] [facility] ED PROV NOTEon 09-02-2024 ED PROV NOTE HNO ID: [id number] Author: RUFINA PINZON MD Service: Emergency Medicine Author Type: Physician Type: ED Provider Notes Filed: 09/02/2024 06:07 Note Text: ED Provider Note Patient Name: Francine Hobson : 1985 SERVICE DATE: 09/01/24 History Patient presents with: Picc Line Check: L arm PICC line concern for occlusion state, Red luman patent w/ good blood return. Purple lumen not patent and no blood return. VSS. NAD Patient is a 38-year-old female with past medical history of Crohn's and bowel obstruction (colostomy placement) presenting for evaluation of occluded PICC line. Patient does have a double-lumen PICC line that was placed on last hospital admission approximately 2 weeks ago for TPN. Patient states that she was admitted to [facility] for bowel obstruction where she received surgery and had a colostomy placed. She originally had a PICC line placed in her right arm and while inpatient, developed a DVT in the right arm. The PICC line was pulled and a new PICC line was placed in the left arm. Patient states that she was discharged from [facility] 2 days ago, and has been receiving TPN at home. Home health nurse came over to her house today, attempted to use her PICC line, and was unable to do so. Patient does report pain in her left hand, but denies pain in the left upper or lower arm. She denies any new abdominal pain, nausea, vomiting, dizziness, lightheadedness, fever, chills, chest pain, or shortness of breath. History provided by: Patient and spouse aquatic scientist used: No PAST MEDICAL HISTORY Diagnosis Date - Crohn disease (HCC) PAST SURGICAL HISTORY Procedure Laterality Date - BOWEL RESECTION HX - PICC LINE INSERT/CONSULT 08/21/2024 No family history on file. Social History Tobacco Use - Smoking status: Not on file - Smokeless tobacco: Not on file Substance and Sexual Activity - Alcohol use: Not on file - Drug use: Not on file - Sexual activity: Not on file ALLERGIES Allergen Reactions - Ibuprofen Other: See Comments - Nsaids (Non-Steroid* Other: See Comments Review of Systems Constitutional: Negative for chills and fever. HENT: Negative for congestion. Respiratory: Negative for cough, chest tightness and shortness of breath. Cardiovascular: Negative for chest pain, palpitations and leg swelling. Gastrointestinal: Negative for abdominal pain, diarrhea, nausea and vomiting. Musculoskeletal: Negative for back pain and neck pain. Positive for left hand pain Neurological: Negative for dizziness, tremors, syncope, weakness, light-headedness and headaches. Physical Exam Vitals [09/01/24 1731] BP Pulse Temp Temp src Resp SpO2 Weight Height 118/83 (!) 103 36.7 ?C (98.1 ?F) Oral 16 99 % 47.6 kg (105 lb) -- Physical Exam Vitals and nursing note reviewed. Constitutional: General: She is not in acute distress. Appearance: Normal appearance. She is not ill-appearing, toxic-appearing or diaphoretic. HENT: Head: Normocephalic and atraumatic. Neck: Vascular: No carotid bruit. Cardiovascular: Rate and Rhythm: Normal rate and regular rhythm. Pulses: Normal pulses. Heart sounds: Normal heart sounds. Pulmonary: Effort: Pulmonary effort is normal. No respiratory distress. Breath sounds: Normal breath sounds. No stridor. No wheezing, rhonchi or rales. Chest: Chest wall: No tenderness. Abdominal: General: Abdomen is flat. There is no distension. Palpations: Abdomen is soft. There is no mass. Tenderness: There is no abdominal tenderness. There is no right CVA tenderness, left CVA tenderness, guarding or rebound. Hernia: No hernia is present. Comments: Colostomy present Genitourinary: General: Normal vulva. Rectum: Normal. Musculoskeletal: General: Normal range of motion. Arms: Cervical back: Normal range of motion and neck supple. No rigidity or tenderness. Comments: Double lumen PICC line present. Lymphadenopathy: Cervical: No cervical adenopathy. Skin: General: Skin is warm and dry. Capillary Refill: Capillary refill takes less than 2 seconds. Neurological: Mental Status: She is alert and oriented to person, place, and time. Diagnostic Testing ED Labs Ordered and Reviewed - No data to display Procedures ED Course / Clinical Impression Clinical Impressions as of 09/02/24 0239 Acute deep vein thrombosis (DVT) of left upper extremity, unspecified vein (HCC) Failure of outpatient treatment Occluded PICC line, initial encounter (HCC) Colostomy present ([facility]) MDM / Disposition / Plan Patient is a 38-year-old female presenting for evaluation of occluded PICC line. On exam, patient is in no acute distress is nontoxic-appearing. She is however, tearful, and upset regarding multiple hospitalizations and diagnoses. Lungs clear to STs bilaterally, no additional sounds appreciated. Abdomen is soft, colostomy present, brown stool noted in colostomy (more content not included)... Normal [facility] Ferritin SerPl-mCncon 2024 Ferritin [Mass/Vol] 524.1 ng/mL High 14.7-205.1 [facility] Comment on above: Order Comment: Speci men Type: BLOOD SPECIMENOrdering Facility: [facility] Address: [address] [place] [address] Performed By: #### 5 0190-8, 2276-4 ####[facility] LABORATORYCLIA [id number] [facility] [place] [address] [place] HISTORY PHYSICALon HISTORY PHYSICAL HNO ID: [id number] Author: KEYSHAWN STONE APRN.BROACH TROUBLE SHOOTER Service: Hospital Medicine Author Type: Nurse Practitioner Type: H&P Filed: 09/02/2024 04:25 Note Text: DEPARTMENT OF HOSPITAL MEDICINE HISTORY AND PHYSICAL EXAM SERVICE DATE: 09/02/2024 SERVICE TIME: 3:40 AM Primary Care Physician: No primary care provider on file. NIGHT AND WEEKEND COVERAGE: LOTUS COVERAGE: Days: [phone], please contact via [employer] Nights: - 3rd floor: please page [facility]ist night cover [phone] - 4W: please page [facility] night cover #[phone] - 5th floor: please page [facility] night cover #[phone] - SDU (17:00 - 19:00): Please page #[phone] - SDU (19:00 - 07:00): Please call [facility] at [phone] Subjective CHIEF COMPLAINT: clotted LUE PICC line HPI: This is a 38 year old female with a past medical history of chron's colitis with intestinal obstruction s/p end ileostomy on 08/18/24, anxiety/depression, nicotine use who presents with a clotted LUE PICC line. Patient recently discharged on 08/30/24 from . She was discharged home with LUE PICC with nightly TPN. Today her [facility] nurse and boyfriend were having difficulty flushing her PICC line. While in the hospital at still patient had a PICC line in her RUE and developed an acute axillary DVT. This line was removed and one was placed in her LUE. SHe was seen by vascular and started on lovenox injections with plans to transition to eliquis. Since being home patient states she has not missed any lovenox injections except today because she was in the ED. In the ED: Patient remained hemodynamically stable US DVT LUE: Positive study for acute DVT in the left upper extremity. Nonocclusive thrombus associated with indwelling left upper extremity PICC catheter at the left subclavian vein. CXR: Satisfactory left PICC line placement with no evidence of acute disease. Patient overall very anxious and upset in ED to be back in the hospital. She is overwhelmed with everything she needs to do at home. She states she has pain in her abdomen from her surgery, which is not any worse from discharge. She has high output from her ostomy which is difficult to deal with. No change in output, no blood. She also has pain in her back which she believes is from doing too much at home. She complains of pain in her left hand from an infiltrated IV when she was in the hospital and pain in her RUE from DVT. She has some nausea which is controlled with zofran. Her oral intake has been fair-she has been eating eggs, rice cake with peanut butter and banana. She denies any vomiting. She has been urinating well without difficulty. She admits to not taking her gabapentin, celexa, or elavil since being home because she does not want to be too tired to function. She denies any CP, SOB, lightheadedness, leg swelling, fever/chills. PAST MEDICAL HISTORY Diagnosis Date Crohn disease (HCC) PAST SURGICAL HISTORY Procedure Laterality Date BOWEL RESECTION HX PICC LINE INSERT/CONSULT 08/21/2024 History reviewed. No pertinent family history. PRIOR TO ADMISSION MEDICATIONS: Prior to Admission Medications Prescriptions Last Dose Informant Patient Reported? Taking? Cholecalciferol, Vitamin D3, (VITAMIN D) 25 mcg (1,000 unit) cap Yes No Sig: Take 1,000 Units by mouth once daily. Lactobacillus acidophilus (PROBIOTIC ACIDOPHILUS ORAL) Yes No Sig: Take 1 capsule by mouth once daily acetaminophen (TYLENOL) 500 mg tablet No No Sig: Take 2 tablets by mouth every 6 hours as needed (mild, moderate pain). amitriptyline (ELAVIL) 25 mg tablet Yes No Sig: Take 25 mg by mouth daily at bedtime. apixaban (ELIQUIS) 5 mg tab(s) No No Sig: Take 1 tablet by mouth every 12 hours. Please start Eliquis after finishing Lovenox prescription. Patient should start on October 01, 2024. calcium polycarbophil (FIBERCON) 625 mg tablet No No Sig: Take 1 tablet by mouth two times a day. citalopram (CELEXA) 40 mg tablet Yes No Sig: Take 40 mg by mouth once daily. diazePAM (VALIUM) 5 mg tablet No No Sig: Take 1 tablet by mouth every 6 hours as needed for muscle spasm or pain for up to 7 days. Do not take oxycodone and valium at the same time. Please spread out these medications by 2-3 hours. dicyclomine (BENTYL) 10 mg capsule Yes No Sig: Take 10 mg by mouth three times a day. diphenoxylate-atropi ne (LOMOTIL) 2.5-0.025 mg per tablet No No Sig: Take 2 tablets by mouth before meals and at bedtime for 90 days. enoxaparin (LOVENOX) 80 mg/0.8 mL No No Sig: Inject 0.7 mL subcutaneously every 24 hours. Please eject 0.1 mL of fluid from syringe into trash. Inject the remaining fluid into the subcutaneous tissue. gabapentin (NEURONTIN) 300 mg capsule No No Sig: Take 1 capsule by mouth three times a day for 30 days. hydrOXYzine HCl (ATARAX) 25 mg tablet Yes No Sig: Take 25 mg by mouth three times a day as needed for anxiety. loperamide (IMODIUM) 2 mg cap(s) No No Sig: Abraham (more content not included)... Normal [facility] Iron and Iron binding capaci ty [facility] 09-02-2024 Iron [Mass/Vol] 33 ug/dL Low 41-186 [facility] Comment on above: Order Comment: Speci men Type: BLOOD SPECIMENOrdering Facility: [facility] Address: [address] [place] [address] Performed By: #### 5 0190-8, 2275-4 ####[facility] LABORATORYIA [id number] [place] [address] [place] Iron binding capacity [Mass/Vol] 255 ug/dL Normal 232-386 [facility] l Comment on above: Order Comment: Speci men Type: BLOOD SPECIMENOrdering Facility: [facility] Address: [address] [place] [address] Performed By: #### 5 0190-8, 2275- ####[facility] LABORATORYCLIA [id number] [place] [address] [place] Iron/TIBC [Molar ratio] 12.9 % Low 15.0-57.0 [facility] Comment on above: Order Comment: Speci men Type: BLOOD SPECIMENOrdering Facility: [facility] Address: [address] [place] [address] Performed By: #### 5 0190-8, 2275-4 ####[facility] LABORATORYCLIA [id number] [place] [address] [place] Magnesium SerPl-mCncon 09-02 Magnesium [Mass/Vol] 1.9 mg/dL Normal 1.7-2.3 [facility] Comment on above: Order Comment: Elfego pollock Type: BLOOD SPECIMENOrdering Facility: [facility] Address: [address] [place] [address] Performed By: #### 2 4323-8, 37336-4, 2777-1 ####[facility] LABORATORYCLIA [id number] [place] [address] [place] PT panel Coag (PPP)on 2024 INR Coag (PPP) [Relative time] 1.1 {INR} Normal 0.9-1.3 [facility] Comment on above: Order Comment: Elfego pollock Type: BLOOD SPECIMEN [facility] Address: [address] [place] [address] Result Comment: Senia min K Antagonist (VKA) Therapeutic Range: INR 2 to 3 (Target INR of 2.5) Note: For patients treated with VKA drugs, such as warfarin, the [employer] 2012 Guideline recommends a therapeutic INR range of 2 to 3 (target INR of 2.5). This recommendation includes high-risk patients with antiphospholipid syndrome with previous arterial or venous thromboembolism, current-generation mechanical or bioprosthetic aortic heart valve replacement. Note: Patients with mechanical aortic valve replacement and additional risk factors for thromboembolic events (atrial fibrillation, previous thromboembolism, LV dysfunction, hypercoagulable conditions) or an older generation mechanical AVR (i.e., ball in-Cage) or any mechanical MVR should have a INR therapeutic range of 2.5 to 3.5 (target INR of 3). Brie GH, et al. Chest 2012, 141:7S-47S Aubrey RA, et al. JACC 2017, 70: 252-289 Performed By: #### 3 4528-0, PTTAC, 77989-7 #### [facility] CLIA [id number] [place] [address] [place] PT Coag (PPP) [Time] 11.8 s Normal 9.7-13.0 [facility] Comment on above: Order Comment: Speci men Type: BLOOD SPECIMEN [facility] Address: [facility] [place] [address] Performed By: #### 3 4528-0, PTTAC, 19395-6 #### [facility] CLIA [id number] [address] [place] [address] [place] PTT, ANTICOAGULANT THERAPYon 09-02-2024 aPTT Coag (PPP) [Time] 33.2 s High 23.0-32.4 [facility] Comment on above: Order Comment: Speci men Type: BLOOD SPECIMENOrdering Facility: [facility] Address: [address] [place] [address] Performed By: #### P TTAC ####[facility] LABORATORYCLIA [id number] [place] [address] [facility] aPTT Coag (PPP) [Time] Normal 23.0-32.4 [facility] Comment on above: Order Comment: Speci men Type: BLOOD SPECIMENOrdering Facility: [facility] Address: [address] [place] [address] [place] [address] Result Comment: Clot wander specimen Corrected result: Previously reported as 29.3 sec on 09/02/2024 at 9:36 PM EST. Performed By: #### P TTAC ####[facility] LABORATORYCLIA [id number] [place] [address] [place] aPTT Coag (PPP) [Time] 21.1 s Low 23.0-32.4 [facility] Comment on above: Order Comment: Speci men Type: BLOOD SPECIMEN [facility] Address: [address] [place] [address] [place] [address] Performed By: #### 3 4528-0, PTTAC, 19753-2 #### [facility] CLIA [id number] [place] [address] [place] Phosphate SerPl-mCncon 09-02 Phosphate [Mass/Vol] 5.8 mg/dL High 2.7-4.8 [facility] Comment on above: Order Comment: Speci men Type: BLOOD SPECIMENOrdering Facility: [facility] Address: [address] [place], [place] [address] Performed By: #### 2 4323-8, 48203-1, 2777-1 ####[facility] LABORATORYCLIA [id number] [place] [address] [facility] [place] aPTT PPPon 09-02-2024 aPTT Coag (PPP) [Time] 47.0 s High 23.0-32.4 [facility] Comment on above: Order Comment: Speci men Type: BLOOD SPECIMENOrdering Facility: [facility] Address: [address] [place], [place] [address] [id number] Performed By: #### 1 4979-9 ####[facility] LABORATORYCLIA [id number] [place] [address] [facility] [place] ALLIED HEALTHon 09-01-2024 ALLIED HEALTH HNO ID: [id number] Author: ANGELINA HUERTAS RT(R) Service: Radiology Author Type: Technologist Type: Allied Health Filed: 09/01/2024 19:09 Note Text: Radiology Service Progress Note PATIENT NAME: Francine Hobson DATE OF SERVICE: September 01, 2024 TIME: 7:08 PM PATIENT IDENTITY VERIFICATION COMPLETED USING TWO (2) IDENTIFIERS: Name and Date of confirmed by patient verbally and Name and Date of confirmed by identification band. FALL SCREENING: Has the patient had 2 falls in the last year or 1 fall with injury or currently using an Ambulatory Assistive Device (Walker, Cane, Wheelchair, Crutches, etc.)? Emergency Room Patient: Screened in ED PATIENT GENDER DATA: Assigned female at . status: : No status: NO. PATIENT RELEVANT IMPLANT DATA REVIEWED: Not Applicable PATIENT PRESENTS WITH AN IMPLANTABLE OR ATTACHED DIGITAL CONTENT PRODUCER: No RADIOLOGY DEPARTMENT: General X-ray: Exam(s) Completed: Chest X-Ray PERIPHERAL IV DATA: Not applicable SIGNED BY: RT Dennis(R) ASHU DAO(R) September 01, 2024 7:08 PM Normal [facility] ED Triage Noteon 09-01-2024 ED Triage Note HNO ID: [id number] Author: OBED WORKMAN III, MD Service: Emergency Medicine Author Type: Physician Type: ED Triage Notes Filed: 09/01/2024 17:34 Note Text: ED TRIAGE PROVIDER NOTE Patient Name: Francine Hobson Service Date: 09/01/24 BRIEF HPI: This is a 38 year old female who presents to the ED with: PICC line issue. Is receiving the PICC line for nutrition and hydration. The 1 on the contralateral arm became clotted. She denies any chest pain or shortness of breath but is reported that is not functioning. No other complaints. BRIEF EXAM: NAD Awake and Alert Non labored breathing No focal neurological deficits PICC line externally does not appear infected INITIAL WORKUP AND DECISION MAKING: Orders Placed This Encounter US DVT UPPER LEFT XR CHEST 2V FRONTAL/LAT AND Linked Order Group alteplase 2 mg catheter clearance solution (CATHFLO) alteplase 2 mg catheter clearance solution (CATHFLO) SIGNATURE: Obed Workman III, MD [facility] US DVT UPPER LTon 09-01-2024 US DVT UPPER LT * * *Final Report* * * DATE OF EXAM: Sep 01 2024 6:35PM U 1003 - US DVT UPPER LT / PROCEDURE REASON: Arm deep vein thrombosis (DVT), new symptoms * * * * Physician Interpretation * * * * EXAMINATION: LEFT UPPER EXTREMITY DEEP VENOUS ULTRASOUND WITH DOPPLER IMAGING CLINICAL HISTORY: Left upper extremity swelling. TECHNIQUE: Grayscale with compression maneuvers where accessible, color and spectral Doppler of the left internal jugular, subclavian, and axillary veins was performed. Grayscale with compression maneuvers of the left brachial, basilic and cephalic veins was also performed. The contralateral internal jugular and distal subclavian veins were imaged for comparison. Images were obtained and stored in a permanent archive. MQ: [id number] COMPARISON: None RESULT: LEFT UPPER EXTREMITY DEEP VEINS Internal Jugular vein: Normal compression, normal spontaneous flow. Subclavian vein: Partial flow present. Nonocclusive hypoechoic thrombus associated with PICC central venous catheter at the left subclavian vein. Axillary vein: Normal compression, normal spontaneous flow. Brachial vein: Normal compression SUPERFICIAL VEINS Basilic vein: Normal compression. PICC catheter noted at the basilic vein. Cephalic vein: Not identified. RIGHT UPPER EXTREMITY (FOR COMPARISON) DEEP VEINS Internal Jugular and Distal Subclavian veins: Normal compression, normal spontaneous flow. IMPRESSION: Left cephalic vein not visualized. Positive study for acute DVT in the left upper extremity. Nonocclusive thrombus associated with indwelling left upper extremity PICC catheter at the left subclavian vein. Negative study for superficial thrombophlebitis in the imaged segments of the left upper extremity. ACTIONABLE RESULT: FOLLOW-UP Acuity: Actionable Findings: Heart and Vascular system Routing Code: CV_1 Recommendation: Unlisted Recommendation (see report) Time Frame: At the discretion of the clinical team. COMMUNICATION: Results will be communicated with the ordering provider via [employer] staff message or phone message by [facility] within 2 business days of report finalization. --END OF FINDING-- Running Instructor: EPIFANIO Transcribe Date/Time: Sep 01 2024 7:18P Dictated by : MIKE CODY MD This examination was interpreted and the report reviewed and electronically signed by: MIKE CODY MD on Sep 01 2024 7:22PM EST [id number] CN ACTIONABLE Invalid Interpretation Code [facility] XR CHEST 2V FRONTAL/LATon XR CHEST 2V FRONTAL/LAT * * *Final Report* * * DATE OF EXAM: Sep 01 2024 7:16PM VHX 5291 - XR CHEST 2V FRONTAL/LAT / PROCEDURE REASON: Other * * * * Physician Interpretation * * * * EXAMINATION: CHEST RADIOGRAPH (2 VIEW FRONTAL and LATERAL) CLINICAL HISTORY: Other, PICC line not flushing MQ: XC2_6 EXAM DATE/TIME: 09/01/2024 7:16 PM COMPARISON: 07/31/2024. RESULT: This is a limited examination due to artifacts from the patient's bra. Lines, tubes, and devices: The right PICC line has been exchanged by a left PICC line seen ending in the distal SVC. Lungs and pleura: No consolidation. No lung mass. No pleural effusion. No pneumothorax. Cardiomediastinal silhouette: Stable cardiomediastinal silhouette. Bones and soft tissues: Unremarkable. IMPRESSION: Satisfactory left PICC line placement with no evidence of acute disease. Running Instructor: EPIFANIO Transcribe Date/Time: Feb 28 2025 7:38P Dictated by : TRAM CHING MD This examination was interpreted and the report reviewed and electronically signed by: TRAM CHING MD on Sep 01 2024 7:39PM EST [id number] [facility] Basic metabolic 2000 panelon 08-30-2024 Anion gap [Moles/Vol] 12 mmol/L Normal 8-15 [facility] Comment on above: Order Comment: Speci men Type: BLOOD SPECIMENOrdering Facility: [facility] Address: [address] [place], [place] [address] Performed By: #### 2 4321-2, , 2776-07 ####[facility] LABCLIA [id number] [address] [address] [place] Calcium [Mass/Vol] 9.3 mg/dL Normal 8.5-10.2 [facility] Comment on above: Order Comment: Speci men Type: BLOOD SPECIMENOrdering Facility: [facility] Address: [address] [place] [address] Performed By: #### 2 4321-2, , 2776-07 ####[facility] LABCLIA [id number] [address] [address] [place] Chloride [Moles/Vol] 100 mmol/L Normal 98-107 [facility] Comment on above: Order Comment: Speci men Type: BLOOD SPECIMENOrdering Facility: [facility] Address: [address] [place] [address] Performed By: #### 2 4321-2, , 2776-07 ####[facility] LABCLIA [id number] [address] [address] [place] CO2 [Moles/Vol] 26 mmol/L Normal 22-30 [facility] Comment on above: Order Comment: Speci men Type: BLOOD SPECIMENOrdering Facility: [facility] Address: [address] [place] [address] Performed By: #### 2 4321-2, , 2776-07 ####[facility] LABIA [id number] [address] [address] [place] Creatinine [Mass/Vol] 0.54 mg/dL Low 0.58-0.96 [facility] Comment on above: Order Comment: Specroby men Type: BLOOD SPECIMENOrdering Facility: [facility] Address: [address] [place] [address] Performed By: #### 2 4321-2, , 2776-07 ####[facility] [id number] [place] [address] [place] Creatinine and Glomerular filtration rate.predicted panel (S/P/Bld) 123 mL/min/1.73m??? Normal >=60 [facility] Comment on above: Order Comment: Elfego pollock Type: BLOOD SPECIMENOrdering Facility: [facility] Address: [address] [place] [address] Result Comment: Desiree mated Glomerular Filtration Rate (eGFR) is calculated using the 2020 CKD-EPI creatinine equation. This equation utilizes serum creatinine, sex, and age as parameters. The creatinine assay has traceable calibration to isotope dilution-mass spectrometry. Refer to KDIGO guidelines for clinical interpretation. In patients with unstable renal function, e.g. those with acute kidney injury, the eGFR may not accurately reflect actual GFR. Performed By: #### 2 4321-2, , 2776-07 ####[facility] LABIA [id number] [address] [address] [place] Glucose [Mass/Vol] 79 mg/dL Normal 74-99 [facility] Comment on above: Order Comment: Darryli maris Type: BLOOD SPECIMENOrdering Facility: [facility] Address: [address] [place] [address] Result Comment: The [place] Diabetes Association (ADA) provides guidance for cutoff values for fasting glucose and random glucose. The ADA defines fasting as no caloric intake for at least 8 hours. Fasting plasma glucose results between 100 to 125 mg/dL indicate increased risk for diabetes (prediabetes).Fasting plasma glucose results greater than or equal to 126 mg/dL meet the criteria for diagnosis of diabetes. In the absence of unequivocal hyperglycemia, results should be confirmed by repeat testing. In a patient with classic symptoms of hyperglycemia or hyperglycemic crisis, random plasma glucose results greater than or equal to 200 mg/dL meet the criteria for diagnosis of diabetes.Reference: Standards of Medical Care in Diabetes 2016, [place] [employer] Association. Diabetes Care. 2016.39(Suppl 1). Performed By: #### 2 4321-2, , 2776-07 ####[facility] LABCLIA [id number] [address] [address] [place] Potassium [Moles/Vol] 4.2 mmol/L Normal 3.7-5.1 [facility] Comment on above: Order Comment: Speci men Type: BLOOD SPECIMENOrdering Facility: [facility] Address: [address] [place] [address] Performed By: #### 2 2, , 2776-07 ####[facility] LABCLIA [id number] [place] [address] [place] Sodium [Moles/Vol] 138 mmol/L Normal 136-144 [facility] Comment on above: Order Comment: Speci men Type: BLOOD SPECIMENOrdering Facility: [facility] Address: [address] [place], [place] [address] Performed By: #### 2 432-2, , 2776-07 ####[facility] LABCLIA [id number] [address] [address] [place] Urea nitrogen [Mass/Vol] 16 mg/dL Normal 7-21 [facility] Comment on above: Order Comment: Speci men Type: BLOOD SPECIMENOrdering Facility: [facility] Address: [address] [place], [place] [address] Performed By: #### 2 4320-2, , 2777-1 ####[facility] LABCLIA [id number] [place] [address] [place] CASE MANAGEMon 08-30-2024 CASE MANAGEM Normal [facility] CASE MANAGEM Normal [facility] CBC panel Auto (Bld)on 08-30 Erythrocyte distribution width (RBC) [Ratio] 14.7 % Normal 11.5-15.0 [facility] Comment on above: Order Comment: Speci men Type: BLOOD SPECIMENOrdering Facility: [facility] Address: [address] [place] [address] Performed By: #### 5 8410-2 ####[facility] LABCLIA [id number] [place] [address] [place] Hematocrit (Bld) [Volume fraction] 25.0 % Low 36.0-46.0 [facility] Comment on above: Order Comment: Speci men Type: BLOOD SPECIMENOrdering Facility: [facility] Address: [address] [place] [address] Performed By: #### 5 8410-2 ####[facility] LABCLIA [id number] [place] [address] [place] Hemoglobin (Bld) [Mass/Vol] 7.8 g/dL Low 11.5-15.5 [facility] Comment on above: Order Comment: Speci men Type: BLOOD SPECIMENOrdering Facility: [facility] Address: [address] [place] [address] Performed By: #### 5 8410-2 ####[facility] LABCLIA [id number] [place] [address] [place] MCH (RBC) [Entitic mass] 28.3 pg Normal 26.0-34.0 [facility] Comment on above: Order Comment: Speci men Type: BLOOD SPECIMENOrdering Facility: [facility] Address: [address] [place] [address] Performed By: #### 5 8410-2 ####[facility] LABCLIA [id number] [place] [address] [place] MCHC (RBC) [Mass/Vol] 31.2 g/dL Normal 30.5-36.0 [facility] Comment on above: Order Comment: Speci men Type: BLOOD SPECIMENOrdering Facility: [facility] Address: [address] [place] [address] Performed By: #### 5 8410-2 ####[facility] LABIA [id number] [place] [address] [place] MCV (RBC) [Entitic vol] 90.6 fL Normal 80.0-100.0 [facility] Comment on above: Order Comment: Speci men Type: BLOOD SPECIMENOrdering Facility: [facility] Address: [address] [place] [address] Performed By: #### 5 8410-2 ####[facility] LABIA [id number] [place] [address] [place] Nucleated RBC (Bld) [#/Vol] 10*3/uL Normal <0.01 [facility] Comment on above: Order Comment: Speci men Type: BLOOD SPECIMENOrdering Facility: [facility] Address: [address] [place] [address] Performed By: #### 5 8410-2 ####[facility] LABIA [id number] [place] [address] [place] Platelet mean volume (Bld) [Entitic vol] 11.2 fL Normal 9.0-12.7 [facility] Comment on above: Order Comment: Speci men Type: BLOOD SPECIMENOrdering Facility: [facility] Address: [address] [place] [address] Performed By: #### 5 8410-2 ####[facility] LABIA [id number] [place] [address] [place] Platelets (Bld) [#/Vol] 335 10*3/uL Normal 150-400 [facility] Comment on above: Order Comment: Speci men Type: BLOOD SPECIMENOrdering Facility: [facility] Address: [address] [place] [address] Performed By: #### 5 8410-2 ####[facility] LABCLIA [id number] [place] [address] [place] RBC (Bld) [#/Vol] 2.76 10*6/uL Low 3.90-5.20 [facility] Comment on above: Order Comment: Speci men Type: BLOOD SPECIMENOrdering Facility: [facility] Address: [address] [place] [address] Performed By: #### 5 8410-2 ####[facility] LABCLIA [id number] [place] [address] [place] WBC (Bld) [#/Vol] 9.07 10*3/uL Normal 3.70-11.00 [facility] Comment on above: Order Comment: Speci men Type: BLOOD SPECIMENOrdering Facility: [facility] Address: [address] [place] [address] Performed By: #### 5 8410-2 ####[facility] LABIA [id number] [place] [address] [place] Erythrocyte distribution width (RBC) [Ratio] 14.6 % Normal 11.5-15.0 [facility] Comment on above: Order Comment: Speci men Type: BLOOD SPECIMENOrdering Facility: [facility] Address: [address] [place] [address] Performed By: #### 5 8410-2 ####[facility] LABCLIA [id number] [place] [address] [place] Hematocrit (Bld) [Volume fraction] 23.6 % Low 36.0-46.0 [facility] Comment on above: Order Comment: Speci men Type: BLOOD SPECIMENOrdering Facility: [facility] Address: [address] [place] [address] Performed By: #### 5 8410-2 ####[facility] LABIA [id number] [place] [address] [place] Hemoglobin (Bld) [Mass/Vol] 7.4 g/dL Low 11.5-15.5 [facility] Comment on above: Order Comment: Speci men Type: BLOOD SPECIMENOrdering Facility: [facility] Address: [address] [place] [address] Performed By: #### 5 8410-2 ####[facility] LABIA [id number] [place] [address] [place] MCH (RBC) [Entitic mass] 28.2 pg Normal 26.0-34.0 [facility] Comment on above: Order Comment: Speci men Type: BLOOD SPECIMENOrdering Facility: [facility] Address: [address] [place] [address] Performed By: #### 5 8410-2 ####[facility] LABIA [id number] [place] [address] [place] MCHC (RBC) [Mass/Vol] 31.4 g/dL Normal 30.5-36.0 [facility] Comment on above: Order Comment: Speci men Type: BLOOD SPECIMENOrdering Facility: [facility] Address: [address] [place] [address] Performed By: #### 5 8410-2 ####[facility] LABIA [id number] [place] [address] [place] MCV (RBC) [Entitic vol] 90.1 fL Normal 80.0-100.0 [facility] Comment on above: Order Comment: Speci men Type: BLOOD SPECIMENOrdering Facility: [facility] Address: [address] [place] [address] Performed By: #### 5 8410-2 ####[facility] LABCLIA [id number] [place] [address] [place] Nucleated RBC (Bld) [#/Vol] 10*3/uL Normal <0.01 [facility] Comment on above: Order Comment: Speci men Type: BLOOD SPECIMENOrdering Facility: [facility] Address: [address] [place] [address] Performed By: #### 5 8410-2 ####[facility] LABIA [id number] [place] [address] [place] Platelet mean volume (Bld) [Entitic vol] 11.4 fL Normal 9.0-12.7 [facility] Comment on above: Order Comment: Speci men Type: BLOOD SPECIMENOrdering Facility: [facility] Address: [address] [place] [address] Performed By: #### 5 8410-2 ####[facility] LABIA [id number] [place] [address] [place] Platelets (Bld) [#/Vol] 310 10*3/uL Normal 150-400 [facility] Comment on above: Order Comment: Speci men Type: BLOOD SPECIMENOrdering Facility: [facility] Address: [address] [place] [address] Performed By: #### 5 8410-2 ####[facility] LABIA [id number] [place] [address] [place] RBC (Bld) [#/Vol] 2.62 10*6/uL Low 3.90-5.20 [facility] Comment on above: Order Comment: Speci men Type: BLOOD SPECIMENOrdering Facility: [facility] Address: [address] [place] [address] Performed By: #### 5 8410-2 ####[facility] LABCLIA [id number] [place] [address] [place] WBC (Bld) [#/Vol] 7.85 10*3/uL Normal 3.70-11.00 [facility] Comment on above: Order Comment: Speci men Type: BLOOD SPECIMENOrdering Facility: [facility] Address: [address] [place] [address] Performed By: #### 5 8410-2 ####[facility] LABCLIA [id number] [place] [address] [place] CNDSon 08-30-2024 CNDS Normal [facility] Magnesium SerPl-mCncon 08-30 Magnesium [Mass/Vol] 1.8 mg/dL Normal 1.7-2.3 [facility] Comment on above: Order Comment: Speci men Type: BLOOD SPECIMENOrdering Facility: [facility] Address: [address] [place] [address] Performed By: #### 2 4321-2, 37913-2, 2777-1 ####[facility] LABCLIA [id number] [place] [address] [place] PT EDon 08-30-2024 PT ED Normal [facility] Phosphate SerPl-ncon 08-30 Phosphate [Mass/Vol] 4.2 mg/dL Normal 2.7-4.8 [facility] Comment on above: Order Comment: Speci men Type: BLOOD SPECIMENOrdering Facility: [facility] Address: [address] [place] [address] Performed By: #### 2 4321-2, 95141-7, 2777-1 ####[facility] LABIA [id number] [place] [id number] [place] Basic metabolic 2000 panelon 08-29-2024 Anion gap [Moles/Vol] 14 mmol/L Normal 8-15 [facility] Comment on above: Order Comment: Speci men Type: BLOOD SPECIMENOrdering Facility: [facility] Address: [address] [place] [address] Performed By: #### 1 9123-9, 2777-1, 8, 24240-9 ####[facility] LABCLIA [id number] [address] [address] [place] Calcium [Mass/Vol] 9.6 mg/dL Normal 8.5-10.2 [facility] Comment on above: Order Comment: Speci men Type: BLOOD SPECIMENOrdering Facility: [facility] Address: [address] [place] [address] Performed By: #### 1 9123-9, 2777-1, 8, 75353-0 ####[facility] LABCLIA [id number] [address] [address] [place] Chloride [Moles/Vol] 98 mmol/L Normal 98-107 [facility] Comment on above: Order Comment: Speci men Type: BLOOD SPECIMENOrdering Facility: [facility] Address: [address] [place] [address] Performed By: #### 1 9123-9, 2777-1, 2571-02, 92046-6 ####[facility] LABIA [id number] [address] [address] [place] CO2 [Moles/Vol] 28 mmol/L Normal 22-30 [facility] Comment on above: Order Comment: Speci men Type: BLOOD SPECIMENOrdering Facility: [facility] Address: [address] [place] [address] Performed By: #### 1 9123-9, 2777-1, 8, 75081-1 ####[facility] LABIA [id number] [address] [address] [place] Creatinine [Mass/Vol] 0.52 mg/dL Low 0.58-0.96 [facility] Comment on above: Order Comment: Speci men Type: BLOOD SPECIMENOrdering Facility: [facility] Address: [address] [place] [address] Performed By: #### 1 9123-9, 2777-1, 2570-8, 22683-0 ####[facility] LABIA [id number] [place] [address] [place] Creatinine and Glomerular filtration rate.predicted panel (S/P/Bld) 124 mL/min/1.73m??? Normal >=60 [facility] Comment on above: Order Comment: Elfego pollock Type: BLOOD SPECIMENOrdering Facility: [facility] Address: [address] [place] [address] Result Comment: Desiree mated Glomerular Filtration Rate (eGFR) is calculated using the 2020 CKD-EPI creatinine equation. This equation utilizes serum creatinine, sex, and age as parameters. The creatinine assay has traceable calibration to isotope dilution-mass spectrometry. Refer to KDIGO guidelines for clinical interpretation. In patients with unstable renal function, e.g. those with acute kidney injury, the eGFR may not accurately reflect actual GFR. Performed By: #### 1 9123-9, 2777-1, 257-8, 47142-4 ####[facility] LABIA [id number] [place] [address] [place] Glucose [Mass/Vol] 109 mg/dL High 74-99 [facility] Comment on above: Order Comment: Elfego pollock Type: BLOOD SPECIMENOrdering Facility: [facility] Address: [address] [place] [address] Result Comment: The [place] Diabetes Association (ADA) provides guidance for cutoff values for fasting glucose and random glucose. The ADA defines fasting as no caloric intake for at least 8 hours. Fasting plasma glucose results between 100 to 125 mg/dL indicate increased risk for diabetes (prediabetes).Fasting plasma glucose results greater than or equal to 126 mg/dL meet the criteria for diagnosis of diabetes. In the absence of unequivocal hyperglycemia, results should be confirmed by repeat testing. In a patient with classic symptoms of hyperglycemia or hyperglycemic crisis, random plasma glucose results greater than or equal to 200 mg/dL meet the criteria for diagnosis of diabetes.Reference: Standards of Medical Care in Diabetes 2016, [place] [employer]. Diabetes Care. 2016.39(Suppl 1). Performed By: #### 1 9123-9, 2777-1, 257-8, 01095-1 ####[facility] LABIA [id number] [place] [id number] [place] Potassium [Moles/Vol] 3.5 mmol/L Low 3.7-5.1 [facility] Comment on above: Order Comment: Speci men Type: BLOOD SPECIMENOrdering Facility: [facility] Address: [address] [place] [address] Performed By: #### 1 9123-9, 2777-1, 257-8, 59074-6 ####[facility] LABIA [id number] [place] [address] [place] Sodium [Moles/Vol] 140 mmol/L Normal 136-144 [facility] Comment on above: Order Comment: Speci men Type: BLOOD SPECIMENOrdering Facility: [facility] Address: [address] [place] [address] Performed By: #### 1 9123-9, 2777-1, 257-8, 08270-9 ####[facility] [id number] [place] [id number] [place] Urea nitrogen [Mass/Vol] 20 mg/dL Normal 7-21 [facility] Comment on above: Order Comment: Speci men Type: BLOOD SPECIMENOrdering Facility: [facility] Address: [address] [place] [address] Performed By: #### 1 9123-9, 2777-1, 257-8, 19303-5 ####[facility] LABIA [id number] [place] [id number] [place] CASE MANAGEMon 08-29-2024 CASE MANAGEM Normal [facility] CBC panel Auto (Bld)on 08-29 Erythrocyte distribution width (RBC) [Ratio] 14.6 % Normal 11.5-15.0 [facility] Comment on above: Order Comment: Speci men Type: BLOOD SPECIMENOrdering Facility: [facility] Address: [address] [place] [address] Performed By: #### 5 8410-2 ####[facility] LABCLIA [id number] [place] [address] [place] Hematocrit (Bld) [Volume fraction] 26.5 % Low 36.0-46.0 [facility] Comment on above: Order Comment: Speci men Type: BLOOD SPECIMENOrdering Facility: [facility] Address: [address] [place] [address] Performed By: #### 5 8410-2 ####[facility] LABIA [id number] [place] [address] [place] Hemoglobin (Bld) [Mass/Vol] 8.2 g/dL Low 11.5-15.5 [facility] Comment on above: Order Comment: Speci men Type: BLOOD SPECIMENOrdering Facility: [facility] Address: [address] [place] [address] Performed By: #### 5 8410-2 ####[facility] LABIA [id number] [place] [address] [place] MCH (RBC) [Entitic mass] 27.8 pg Normal 26.0-34.0 [facility] Comment on above: Order Comment: Speci men Type: BLOOD SPECIMENOrdering Facility: [facility] Address: [address] [place] [address] Performed By: #### 5 8410-2 ####[facility] LABCLIA [id number] [place] [address] [place] MCHC (RBC) [Mass/Vol] 30.9 g/dL Normal 30.5-36.0 [facility] Comment on above: Order Comment: Speci men Type: BLOOD SPECIMENOrdering Facility: [facility] Address: [address] [place] [address] Performed By: #### 5 8410-2 ####[facility] LABCLIA [id number] [place] [address] [place] MCV (RBC) [Entitic vol] 89.8 fL Normal 80.0-100.0 [facility] Comment on above: Order Comment: Speci men Type: BLOOD SPECIMENOrdering Facility: [facility] Address: [address] [place] [address] Performed By: #### 5 8410-2 ####[facility] LABCLIA [id number] [place] [address] [place] Nucleated RBC (Bld) [#/Vol] 10*3/uL Normal <0.01 [facility] Comment on above: Order Comment: Speci men Type: BLOOD SPECIMENOrdering Facility: [facility] [facility] Address: [address] [place] [address] Performed By: #### 5 8410-2 ####[facility] LABIA [id number] [place] [address] [place] Platelet mean volume (Bld) [Entitic vol] 11.3 fL Normal 9.0-12.7 [facility] Comment on above: Order Comment: Speci men Type: BLOOD SPECIMENOrdering Facility: [facility] Address: [address] [place] [address] Performed By: #### 5 8410-2 ####[facility] LABIA [id number] [place] [address] [place] Platelets (Bld) [#/Vol] 333 10*3/uL Normal 150-400 [facility] Comment on above: Order Comment: Speci men Type: BLOOD SPECIMENOrdering Facility: [facility] Address: [address] [place] [address] Performed By: #### 5 8410-2 ####[facility] LABCLIA [id number] [place] [address] [place] RBC (Bld) [#/Vol] 2.95 10*6/uL Low 3.90-5.20 [facility] Comment on above: Order Comment: Speci men Type: BLOOD SPECIMENOrdering Facility: [facility] Address: [address] [place] [address] Performed By: #### 5 8410-2 ####[facility] LABCLIA [id number] [place] [address] [place] WBC (Bld) [#/Vol] 9.54 10*3/uL Normal 3.70-11.00 [facility] Comment on above: Order Comment: Speci men Type: BLOOD SPECIMENOrdering Facility: [facility] Address: [address] [place] [address] Performed By: #### 5 8410-2 ####[facility] LABCLIA [id number] [place] [address] [place] CONSULT PROGon 08-29-2024 CONSULT PROG Normal [facility] CONSULT PROG Normal [facility] Magnesium SerPl-mCncon 08-29 Magnesium [Mass/Vol] 1.9 mg/dL Normal 1.7-2.3 [facility] Comment on above: Order Comment: Speci men Type: BLOOD SPECIMENOrdering Facility: [facility] Address: [address] [place] [address] Performed By: #### 1 9123-9, 2777-1, 2571-8, 80197-3 ####[facility] LABCLIA [id number] [place] [address] [place] PT EDon 08-29-2024 PT ED Normal [facility] Phosphate SerPl-mCncon 08-29 Phosphate [Mass/Vol] 5.2 mg/dL High 2.7-4.8 [facility] Comment on above: Order Comment: Speci men Type: BLOOD SPECIMENOrdering Facility: [facility] Address: [address] [place] [address] Performed By: #### 1 9123-9, 2777-1, 2571-8, 80896-8 ####[facility] LABCLIA [id number] [address] [address] [place] Trigl SerPl-mCncon Triglyceride [Mass/Vol] 177 mg/dL High <150 [facility] Comment on above: Order Comment: Speci men Type: BLOOD SPECIMENOrdering Facility: [facility] Address: [address] [place] [address] Result Comment: <150 mg/dL, Normal 150-199 mg/dL, Borderline high 200-499 mg/dL, High>499 mg/dL, Very highReference:1. National Cholesterol Education Program ATP III Guideline At-A-Glance Quick Desk Reference: National Heart, Lung, and Blood [place]. National Institutes of Health. 2001: NIH Publication No. 01-3305. Performed By: #### 1 9123-9, 2777-1, 257-8, 48279-9 ####[facility] LABCLIA [id number] [place] [id number] [place] Triglyceride [Mass/Vol]on FASTING TIME 0 hrs Normal [facility] Comment on above: Order Comment: Speci men Type: BLOOD SPECIMENOrdering Facility: [facility] Address: [address] [place] [address] Performed By: #### 1 9123-9, 2777-1, 257-8, 69495-4 ####[facility] LABCLIA [id number] [place] [id number] [place] ALLIED HEALTHon 08-28-2024 ALLIED HEALTH Normal [facility] Basic metabolic 2000 panelon 08-28-2024 Anion gap [Moles/Vol] 13 mmol/L Normal 8-15 [facility] Comment on above: Order Comment: Speci men Type: BLOOD SPECIMENOrdering Facility: [facility] Address: [address] [place] [address] Performed By: #### 2 4321-2, 29578-2, 08913-0, 1987-11 ####[facility] LABCLIA [id number] [address] [address] [place] Calcium [Mass/Vol] 9.5 mg/dL Normal 8.5-10.2 [facility] Comment on above: Order Comment: Speci men Type: BLOOD SPECIMENOrdering Facility: [facility] Address: [address] [place] [address] Performed By: #### 2 4320-2, , , 1987-11 ####[facility] LABCLIA [id number] [address] [address] [place] Chloride [Moles/Vol] 100 mmol/L Normal 98-107 [facility] Comment on above: Order Comment: Speci men Type: BLOOD SPECIMENOrdering Facility: [facility] Address: [address] [place] [address] Performed By: #### 2 4320-2, , , 1987-11 ####[facility] LABCLIA [id number] [address] [address] [place] CO2 [Moles/Vol] 26 mmol/L Normal 22-30 [facility] Comment on above: Order Comment: Speci men Type: BLOOD SPECIMENOrdering Facility: [facility] Address: [address] [place] [address] Performed By: #### 2 4320-2, , , 1987-11 ####[facility] LABCLIA [id number] [address] [address] [place] Creatinine [Mass/Vol] 0.46 mg/dL Low 0.58-0.96 [facility] Comment on above: Order Comment: Speci men Type: BLOOD SPECIMENOrdering Facility: [facility] Address: [address] [place] [address] Performed By: #### 2 4321-2, , , 1987-11 ####[facility] LABCLIA [id number] [place] [address] [place] Creatinine and Glomerular filtration rate.predicted panel (S/P/Bld) 127 mL/min/1.73m??? Normal >=60 [facility] Comment on above: Order Comment: Elfego pollock Type: BLOOD SPECIMENOrdering Facility: [facility] Address: [address] [place] [address] Result Comment: Desiree mated Glomerular Filtration Rate (eGFR) is calculated using the 2020 CKD-EPI creatinine equation. This equation utilizes serum creatinine, sex, and age as parameters. The creatinine assay has traceable calibration to isotope dilution-mass spectrometry. Refer to KDIGO guidelines for clinical interpretation. In patients with unstable renal function, e.g. those with acute kidney injury, the eGFR may not accurately reflect actual GFR. Performed By: #### 2 4321-2, 41131-4, , 1987-11 ####[facility] LABIA [id number] [place] [address] [place] Glucose [Mass/Vol] 117 mg/dL High 74-99 [facility] Comment on above: Order Comment: Elfego pollock Type: BLOOD SPECIMENOrdering Facility: [facility] Address: [address] [place] [address] Result Comment: The [place] Diabetes Association (ADA) provides guidance for cutoff values for fasting glucose and random glucose. The ADA defines fasting as no caloric intake for at least 8 hours. Fasting plasma glucose results between 100 to 125 mg/dL indicate increased risk for diabetes (prediabetes).Fasting plasma glucose results greater than or equal to 126 mg/dL meet the criteria for diagnosis of diabetes. In the absence of unequivocal hyperglycemia, results should be confirmed by repeat testing. In a patient with classic symptoms of hyperglycemia or hyperglycemic crisis, random plasma glucose results greater than or equal to 200 mg/dL meet the criteria for diagnosis of diabetes.Reference: Standards of Medical Care in Diabetes 2016, [place] [employer]. Diabetes Care. 2016.39(Suppl 1). Performed By: #### 2 4321-2, 63603-5, , 1987-11 ####[facility] LABCLIA [id number] [address] [address] [place] Potassium [Moles/Vol] 3.9 mmol/L Normal 3.7-5.1 [facility] Comment on above: Order Comment: Speci men Type: BLOOD SPECIMENOrdering Facility: [facility] Address: [address] [place] [address] Performed By: #### 2 432-2, , , 1987-11 ####[facility] LABCLIA [id number] [address] [address] [place] Sodium [Moles/Vol] 139 mmol/L Normal 136-144 [facility] Comment on above: Order Comment: Speci men Type: BLOOD SPECIMENOrdering Facility: [facility] Address: [address] [place] [address] Performed By: #### 2 432-2, , , 1987-11 ####[facility] LABCLIA [id number] [place] [id number] [place] Urea nitrogen [Mass/Vol] 20 mg/dL Normal 7-21 [facility] Comment on above: Order Comment: Speci men Type: BLOOD SPECIMENOrdering Facility: [facility] Address: [address] [place] [address] Performed By: #### 2 4321-2, , , 1987-11 ####[facility] LABCLIA [id number] [address] [address] [place] CBC panel Auto (Bld)on 08-28 Erythrocyte distribution width (RBC) [Ratio] 14.6 % Normal 11.5-15.0 [facility] Comment on above: Order Comment: Speci men Type: BLOOD SPECIMENOrdering Facility: [facility] Address: [address] [place] [address] Performed By: #### 5 8410-2 ####[facility] LABCLIA [id number] [place] [address] [place] Hematocrit (Bld) [Volume fraction] 25.5 % Low 36.0-46.0 [facility] Comment on above: Order Comment: Speci men Type: BLOOD SPECIMENOrdering Facility: [facility] Address: [address] [place] [address] Performed By: #### 5 8410-2 ####[facility] LABIA [id number] [place] [address] [place] Hemoglobin (Bld) [Mass/Vol] 8.3 g/dL Low 11.5-15.5 [facility] Comment on above: Order Comment: Speci men Type: BLOOD SPECIMENOrdering Facility: [facility] Address: [address] [place] [address] Performed By: #### 5 8410-2 ####[facility] LABIA [id number] [place] [address] [place] MCH (RBC) [Entitic mass] 29.0 pg Normal 26.0-34.0 [facility] Comment on above: Order Comment: Speci men Type: BLOOD SPECIMENOrdering Facility: [facility] Address: [address] [place] [address] Performed By: #### 5 8410-2 ####[facility] LABIA [id number] [place] [address] [place] MCHC (RBC) [Mass/Vol] 32.5 g/dL Normal 30.5-36.0 [facility] Comment on above: Order Comment: Speci men Type: BLOOD SPECIMENOrdering Facility: [facility] Address: [address] [place] [address] Performed By: #### 5 8410-2 ####[facility] LABIA [id number] [place] [address] [place] MCV (RBC) [Entitic vol] 89.2 fL Normal 80.0-100.0 [facility] Comment on above: Order Comment: Speci men Type: BLOOD SPECIMENOrdering Facility: [facility] Address: [address] [place] [address] Performed By: #### 5 8410-2 ####[facility] LABIA [id number] [place] [address] [place] Nucleated RBC (Bld) [#/Vol] 10*3/uL Normal <0.01 [facility] Comment on above: Order Comment: Speci men Type: BLOOD SPECIMENOrdering Facility: [facility] Address: [address] [place] [address] Performed By: #### 5 8410-2 ####[facility] LABIA [id number] [place] [address] [place] Platelet mean volume (Bld) [Entitic vol] 10.9 fL Normal 9.0-12.7 [facility] Comment on above: Order Comment: Speci men Type: BLOOD SPECIMENOrdering Facility: [facility] Address: [address] [place] [address] Performed By: #### 5 8410-2 ####[facility] [id number] [place] [address] [place] Platelets (Bld) [#/Vol] 290 10*3/uL Normal 150-400 [facility] Comment on above: Order Comment: Speci men Type: BLOOD SPECIMENOrdering Facility: [facility] Address: [address] [place] [address] Performed By: #### 5 8410-2 ####[facility] LABIA [id number] [place] [address] [place] RBC (Bld) [#/Vol] 2.86 10*6/uL Low 3.90-5.20 [facility] Comment on above: Order Comment: Speci men Type: BLOOD SPECIMENOrdering Facility: [facility] Address: [address] [place] [address] Performed By: #### 5 8410-2 ####[facility] LABCLIA [id number] [address] [address] [place] WBC (Bld) [#/Vol] 10.52 10*3/uL Normal 3.70-11.00 [facility] Comment on above: Order Comment: Speci men Type: BLOOD SPECIMENOrdering Facility: [facility] Address: [address] [place] [address] Performed By: #### 5 8410-2 ####[facility] LABCLIA [id number] [place] [id number] [place] CONSULTon 08-28-2024 CONSULT Normal [facility] CONSULT PROGon 08-28-2024 CONSULT PROG Normal [facility] CRP SerPl-mCncon 08-28-2024 CRP [Mass/Vol] 6.2 mg/dL High <0.9 [facility] Comment on above: Order Comment: Speci men Type: BLOOD SPECIMENOrdering Facility: [facility] Address: [address] [place] [address] Performed By: #### 2 4321-2, , , 1987-11 ####[facility] LABCLIA [id number] [place] [id number] [place] Hepatic function 2000 panelo n 08-28-2024 Albumin [Mass/Vol] 3.2 g/dL Low 3.9-4.9 [facility] Comment on above: Order Comment: Speci men Type: BLOOD SPECIMENOrdering Facility: [facility] Address: [address] [place] [address] [place] [address] Performed By: #### 2 4321-2, , , 1987-11 ####[facility] LABCLIA [id number] [address] [address] [place] ALP [Catalytic activity/Vol] 174 U/L High 34-123 [facility] Comment on above: Order Comment: Speci men Type: BLOOD SPECIMENOrdering Facility: [facility] Address: [address] [place] [address] Performed By: #### 2 432-2, , , 1987-11 ####[facility] LABCLIA [id number] [place] [address] [place] ALT [Catalytic activity/Vol] 30 U/L Normal 7-38 [facility] Comment on above: Order Comment: Speci men Type: BLOOD SPECIMENOrdering Facility: [facility] Address: [address] [place] [address] Performed By: #### 2 432-2, , , 1987-11 ####[facility] LABCLIA [id number] [place] [address] [place] AST [Catalytic activity/Vol] 27 U/L Normal 13-35 [facility] Comment on above: Order Comment: Speci men Type: BLOOD SPECIMENOrdering Facility: [facility] Address: [address] [place] [address] Performed By: #### 2 4320-2, , , 1987-11 ####[facility] LABCLIA [id number] [place] [address] [place] Bilirubin [Mass/Vol] 0.2 mg/dL Normal 0.2-1.3 [facility] Comment on above: Order Comment: Speci men Type: BLOOD SPECIMENOrdering Facility: [facility] Address: [address] [place], [place] [address] Performed By: #### 2 4320-2, , , 1987-11 ####[facility] LABCLIA [id number] [place] [id number] [place] Bilirubin.conjugated [Mass/Vol] 0.1 mg/dL Normal <0.3 [facility] Comment on above: Order Comment: Speci men Type: BLOOD SPECIMENOrdering Facility: [facility] Address: [address] [place], [place] [address] Performed By: #### 2 4321-2, , , 1987-11 ####[facility] LABIA [id number] [address] [address] [place] Protein [Mass/Vol] 6.7 g/dL Normal 6.3-8.0 [facility] Comment on above: Order Comment: Speci men Type: BLOOD SPECIMENOrdering Facility: [facility] Address: [address] [place] [address] Performed By: #### 2 432-2, , , 1987-11 ####[facility] [id number] [place] [address] [place] Magnesium SerPl-mCncon 08-28 Magnesium [Mass/Vol] 2.4 mg/dL High 1.7-2.3 [facility] Comment on above: Order Comment: Speci men Type: BLOOD SPECIMENOrdering Facility: [facility] Address: [address] [place] [address] Performed By: #### 2 4321-2, , , 1987-11 ####[facility] [id number] [place] [id number] [place] NURSING PROGon 08-28-2024 NURSING PROG Normal [facility] PT EDon 08-28-2024 PT ED Normal [facility] Phosphate SerPl-mCncon 08-28 Phosphate [Mass/Vol] 4.5 mg/dL Normal 2.7-4.8 [facility] Comment on above: Order Comment: Speci men Type: BLOOD SPECIMENOrdering Facility: [facility] Address: [address] [place] [address] Performed By: #### 2 777-1 ####[facility] LABCLIA [id number] [address] [address] [place] THERAPY NTon 08-28-2024 THERAPY NT Normal [facility] US ARM VEIN DVT UNL VAS LABo n 08-28-2024 US ARM VEIN DVT UNL VAS LAB Normal [facility] ALLIED HEALTHon 08-27-2024 ALLIED HEALTH Normal [facility] Basic metabolic 2000 panelon 08-27-2024 Anion gap [Moles/Vol] 9 mmol/L Normal 8-15 [facility] Comment on above: Order Comment: Speci men Type: BLOOD SPECIMENOrdering Facility: [facility] Address: [address] [place] [address] Performed By: #### 2 777-1, 71703-7, ####[facility] LABCLIA [id number] [address] [address] [place] Calcium [Mass/Vol] 9.4 mg/dL Normal 8.5-10.2 [facility] Comment on above: Order Comment: Speci men Type: BLOOD SPECIMENOrdering Facility: [facility] Address: [address] [place] [address] Performed By: #### 2 777-1, , ####[facility] LABCLIA [id number] [address] [address] [place] Chloride [Moles/Vol] 100 mmol/L Normal 98-107 [facility] Comment on above: Order Comment: Speci men Type: BLOOD SPECIMENOrdering Facility: [facility] Address: [address] [place] [address] Performed By: #### 2 777-1, , ####[facility] LABCLIA [id number] [address] [address] [place] CO2 [Moles/Vol] 27 mmol/L Normal 22-30 [facility] Comment on above: Order Comment: Speci men Type: BLOOD SPECIMENOrdering Facility: [facility] Address: [address] [place] [id number] Performed By: #### 2 777-1, 18845-6, ####[facility] LABCLIA [id number] [address] [address] [place] Creatinine [Mass/Vol] 0.45 mg/dL Low 0.58-0.96 [facility] Comment on above: Order Comment: Speci men Type: BLOOD SPECIMENOrdering Facility: [facility] Address: [address] [place] [address] Performed By: #### 2 777-1, , ####[facility] [id number] [place] [address] [place] Creatinine and Glomerular filtration rate.predicted panel (S/P/Bld) 128 mL/min/1.73m??? Normal >=60 [facility] Comment on above: Order Comment: Speci men Type: BLOOD SPECIMENOrdering Facility: [facility] Address: [address] [place] [address] Result Comment: Desiree mated Glomerular Filtration Rate (eGFR) is calculated using the 2020 CKD-EPI creatinine equation. This equation utilizes serum creatinine, sex, and age as parameters. The creatinine assay has traceable calibration to isotope dilution-mass spectrometry. Refer to KDIGO guidelines for clinical interpretation. In patients with unstable renal function, e.g. those with acute kidney injury, the eGFR may not accurately reflect actual GFR. Performed By: #### 2 777-1, , ####[facility] LABIA [id number] [place] [id number] [place] Glucose [Mass/Vol] 118 mg/dL High 74-99 [facility] Comment on above: Order Comment: Speci men Type: BLOOD SPECIMENOrdering Facility: [facility] Address: [address] [place], [place] [address] Result Comment: The [place] Diabetes Association (ADA) provides guidance for cutoff values for fasting glucose and random glucose. The ADA defines fasting as no caloric intake for at least 8 hours. Fasting plasma glucose results between 100 to 125 mg/dL indicate increased risk for diabetes (prediabetes).Fasting plasma glucose results greater than or equal to 126 mg/dL meet the criteria for diagnosis of diabetes. In the absence of unequivocal hyperglycemia, results should be confirmed by repeat testing. In a patient with classic symptoms of hyperglycemia or hyperglycemic crisis, random plasma glucose results greater than or equal to 200 mg/dL meet the criteria for diagnosis of diabetes.Reference: Standards of Medical Care in Diabetes 2016, [place] [employer]. Diabetes Care. 2016.39(Suppl 1). Performed By: #### 2 777-1, 64923-6, ####[facility] LABIA [id number] [place] [address] [place] Potassium [Moles/Vol] 4.6 mmol/L Normal 3.7-5.1 [facility] Comment on above: Order Comment: Speci men Type: BLOOD SPECIMENOrdering Facility: [facility] Address: [address] [place] [address] Performed By: #### 2 777-1, 28177-2, ####[facility] LABIA [id number] [place] [address] [place] Sodium [Moles/Vol] 136 mmol/L Normal 136-144 [facility] Comment on above: Order Comment: Speci men Type: BLOOD SPECIMENOrdering Facility: [facility] Address: [address] [place] [address] Performed By: #### 2 777-1, 66655-3, ####[facility] LABIA [id number] [place] [address] [place] Urea nitrogen [Mass/Vol] 17 mg/dL Normal 7-21 [facility] Comment on above: Order Comment: Speci men Type: BLOOD SPECIMENOrdering Facility: [facility] Address: [address] [place] [address] Performed By: #### 2 777-1, 71917-5, 49832-7 ####[facility] LABCLIA [id number] [place] [address] [place] CBC panel Auto (Bld)on 08-27 Erythrocyte distribution width (RBC) [Ratio] 14.5 % Normal 11.5-15.0 [facility] Comment on above: Order Comment: Speci men Type: BLOOD SPECIMENOrdering Facility: [facility] Address: [address] [place] [address] Performed By: #### 5 8410-2 ####[facility] LABCLIA [id number] [place] [address] [place] Hematocrit (Bld) [Volume fraction] 25.2 % Low 36.0-46.0 [facility] Comment on above: Order Comment: Speci men Type: BLOOD SPECIMENOrdering Facility: [facility] Address: [address] [place] [address] Performed By: #### 5 8410-2 ####[facility] LABIA [id number] [place] [address] [place] Hemoglobin (Bld) [Mass/Vol] 8.0 g/dL Low 11.5-15.5 [facility] Comment on above: Order Comment: Speci men Type: BLOOD SPECIMENOrdering Facility: [facility] Address: [address] [place] [address] Performed By: #### 5 8410-2 ####[facility] LABCLIA [id number] [place] [address] [place] MCH (RBC) [Entitic mass] 28.5 pg Normal 26.0-34.0 [facility] Comment on above: Order Comment: Speci men Type: BLOOD SPECIMENOrdering Facility: [facility] Address: [address] [place] [address] Performed By: #### 5 8410-2 ####[facility] LABCLIA [id number] [place] [address] [place] MCHC (RBC) [Mass/Vol] 31.7 g/dL Normal 30.5-36.0 [facility] Comment on above: Order Comment: Speci men Type: BLOOD SPECIMENOrdering Facility: [facility] Address: [address] [place] [address] Performed By: #### 5 8410-2 ####[facility] LABCLIA [id number] [place] [address] [place] MCV (RBC) [Entitic vol] 89.7 fL Normal 80.0-100.0 [facility] Comment on above: Order Comment: Speci men Type: BLOOD SPECIMENOrdering Facility: [facility] Address: [address] [place] [address] Performed By: #### 5 8410-2 ####[facility] LABIA [id number] [place] [address] [place] Nucleated RBC (Bld) [#/Vol] 10*3/uL Normal <0.01 [facility] Comment on above: Order Comment: Speci men Type: BLOOD SPECIMENOrdering Facility: [facility] Address: [address] [place] [address] Performed By: #### 5 8410-2 ####[facility] LABCLIA [id number] [place] [address] [place] Platelet mean volume (Bld) [Entitic vol] 11.0 fL Normal 9.0-12.7 [facility] Comment on above: Order Comment: Speci men Type: BLOOD SPECIMENOrdering Facility: [facility] Address: [address] [place] [address] Performed By: #### 5 8410-2 ####[facility] LABCLIA [id number] [place] [address] [place] Platelets (Bld) [#/Vol] 298 10*3/uL Normal 150-400 [facility] Comment on above: Order Comment: Speci men Type: BLOOD SPECIMENOrdering Facility: [facility] Address: [address] [place] [address] Performed By: #### 5 8410-2 ####[facility] LABCLIA [id number] [place] [address] [place] RBC (Bld) [#/Vol] 2.81 10*6/uL Low 3.90-5.20 [facility] Comment on above: Order Comment: Speci men Type: BLOOD SPECIMENOrdering Facility: [facility] Address: [address] [place] [address] Performed By: #### 5 8410-2 ####[facility] LABCLIA [id number] [place] [address] [place] WBC (Bld) [#/Vol] 14.02 10*3/uL High 3.70-11.00 [facility] Comment on above: Order Comment: Speci men Type: BLOOD SPECIMENOrdering Facility: [facility] Address: [address] [place] [address] Performed By: #### 5 8410-2 ####[facility] LABCLIA [id number] [place] [address] [place] CONSULT PROGon 08-27-2024 CONSULT PROG Normal [facility] Magnesium SerPl-mCncon 08-27 Magnesium [Mass/Vol] 2.2 mg/dL Normal 1.7-2.3 [facility] Comment on above: Order Comment: Speci men Type: BLOOD SPECIMENOrdering Facility: [facility] Address: [address] [place] [address] Performed By: #### 2 777-1, 44055-2, 76915-5 ####[facility] LABCLIA [id number] [place] [address] [place] Phosphate SerPl-mCncon 08-27 Phosphate [Mass/Vol] 5.1 mg/dL High 2.7-4.8 [facility] Comment on above: Order Comment: Speci men Type: BLOOD SPECIMENOrdering Facility: [facility] Address: [address] [place] [address] Performed By: #### 2 777-1, 05395-3, 01182-1 ####[facility] LABCLIA [id number] [facility] [place] [id number] [place] Basic metabolic 2000 panelon 08-26-2024 Anion gap [Moles/Vol] 9 mmol/L Normal 8-15 [facility] Comment on above: Order Comment: Speci men Type: BLOOD SPECIMENOrdering Facility: [facility] Address: [address] [place] [address] Performed By: #### 2 4321-2, , 2776-07 ####[facility] LABCLIA [id number] [place] [address] [place] Calcium [Mass/Vol] 9.4 mg/dL Normal 8.5-10.2 [facility] Comment on above: Order Comment: Speci men Type: BLOOD SPECIMENOrdering Facility: [facility] Address: [address] [place] [address] Performed By: #### 2 4321-2, , 2776-07 ####[facility] LABCLIA [id number] [place] [id number] [place] Chloride [Moles/Vol] 103 mmol/L Normal 98-107 [facility] Comment on above: Order Comment: Speci men Type: BLOOD SPECIMENOrdering Facility: [facility] Address: [address] [place] [address] Performed By: #### 2 4321-2, , 2776-07 ####[facility] LABCLIA [id number] [facility] [place] [id number] [place] CO2 [Moles/Vol] 25 mmol/L Normal 22-30 [facility] Comment on above: Order Comment: Speci men Type: BLOOD SPECIMENOrdering Facility: [facility] Address: [address] [place] [address] Performed By: #### 2 4321-2, , 2776-07 ####[facility] LABCLIA [id number] [place] [address] [place] Creatinine [Mass/Vol] 0.45 mg/dL Low 0.58-0.96 [facility] Comment on above: Order Comment: Speci men Type: BLOOD SPECIMENOrdering Facility: [facility] Address: [address] [place] [address] Performed By: #### 2 4321-2, , 2776-07 ####[facility] LABCLIA [id number] [place] [address] [place] Creatinine and Glomerular filtration rate.predicted panel (S/P/Bld) 128 mL/min/1.73m??? Normal >=60 [facility] Comment on above: Order Comment: Darryli men Type: BLOOD SPECIMENOrdering Facility: [facility] Address: [address] [place] [address] Result Comment: Desiree mated Glomerular Filtration Rate (eGFR) is calculated using the 2020 CKD-EPI creatinine equation. This equation utilizes serum creatinine, sex, and age as parameters. The creatinine assay has traceable calibration to isotope dilution-mass spectrometry. Refer to KDIGO guidelines for clinical interpretation. In patients with unstable renal function, e.g. those with acute kidney injury, the eGFR may not accurately reflect actual GFR. Performed By: #### 2 4321-2, , 2776-07 ####[facility] LABCLIA [id number] [place] [address] [place] Glucose [Mass/Vol] 141 mg/dL High 74-99 [facility] Comment on above: Order Comment: Speci men Type: BLOOD SPECIMENOrdering Facility: [facility] Address: [address] [place] [address] Result Comment: The [place] Diabetes [employer] (ADA) provides guidance for cutoff values for fasting glucose and random glucose. The ADA defines fasting as no caloric intake for at least 8 hours. Fasting plasma glucose results between 100 to 125 mg/dL indicate increased risk for diabetes (prediabetes).Fasting plasma glucose results greater than or equal to 126 mg/dL meet the criteria for diagnosis of diabetes. In the absence of unequivocal hyperglycemia, results should be confirmed by repeat testing. In a patient with classic symptoms of hyperglycemia or hyperglycemic crisis, random plasma glucose results greater than or equal to 200 mg/dL meet the criteria for diagnosis of diabetes.Reference: Standards of Medical Care in Diabetes 2016, [place] [employer]. Diabetes Care. 2016.39(Suppl 1). Performed By: #### 2 4321-2, , 2776-07 ####[facility] LABCLIA [id number] [place] [address] [place] Potassium [Moles/Vol] 4.2 mmol/L Normal 3.7-5.1 [facility] Comment on above: Order Comment: Speci men Type: BLOOD SPECIMENOrdering Facility: [facility] Address: [address] [place] [address] Performed By: #### 2 432-2, , 2776-07 ####[facility] LABCLIA [id number] [place] [id number] [place] Sodium [Moles/Vol] 137 mmol/L Normal 136-144 [facility] Comment on above: Order Comment: Speci men Type: BLOOD SPECIMENOrdering Facility: [facility] Address: [address] [place] [address] Performed By: #### 2 4321-2, , 2776-07 ####[facility] LABCLIA [id number] [address] [address] [place] Urea nitrogen [Mass/Vol] 11 mg/dL Normal 7-21 [facility] Comment on above: Order Comment: Speci men Type: BLOOD SPECIMENOrdering Facility: [facility] Address: [address] [place] [address] Performed By: #### 2 4321-2, 31814-3, 2777-1 ####[facility] LABIA [id number] [place] [address] [place] CBC panel Auto (Bld)on 08-26 Erythrocyte distribution width (RBC) [Ratio] 14.3 % Normal 11.5-15.0 [facility] Comment on above: Order Comment: Speci men Type: BLOOD SPECIMENOrdering Facility: [facility] Address: [address] [place] [address] Performed By: #### 5 8410-2 ####[facility] LABIA [id number] [place] [address] [place] Hematocrit (Bld) [Volume fraction] 23.6 % Low 36.0-46.0 [facility] Comment on above: Order Comment: Speci men Type: BLOOD SPECIMENOrdering Facility: [facility] Address: [address] [place] [address] Performed By: #### 5 8410-2 ####[facility] LABIA [id number] [place] [address] [place] Hemoglobin (Bld) [Mass/Vol] 7.4 g/dL Low 11.5-15.5 [facility] Comment on above: Order Comment: Speci men Type: BLOOD SPECIMENOrdering Facility: [facility] Address: [address] [place] [address] Performed By: #### 5 8410-2 ####[facility] LABIA [id number] [place] [address] [place] MCH (RBC) [Entitic mass] 28.0 pg Normal 26.0-34.0 [facility] Comment on above: Order Comment: Speci men Type: BLOOD SPECIMENOrdering Facility: [facility] Address: [address] [place] [address] Performed By: #### 5 8410-2 ####[facility] LABIA [id number] [place] [address] [place] MCHC (RBC) [Mass/Vol] 31.4 g/dL Normal 30.5-36.0 [facility] Comment on above: Order Comment: Speci men Type: BLOOD SPECIMENOrdering Facility: [facility] Address: [address] [place] [address] Performed By: #### 5 8410-2 ####[facility] LABIA [id number] [place] [address] [place] MCV (RBC) [Entitic vol] 89.4 fL Normal 80.0-100.0 [facility] Comment on above: Order Comment: Speci men Type: BLOOD SPECIMENOrdering Facility: [facility] Address: [address] [place] [address] Performed By: #### 5 8410-2 ####[facility] [id number] [place] [address] [place] Nucleated RBC (Bld) [#/Vol] 10*3/uL Normal <0.01 [facility] Comment on above: Order Comment: Speci men Type: BLOOD SPECIMENOrdering Facility: [facility] Address: [address] [place] [address] Performed By: #### 5 8410-2 ####[facility] LABIA [id number] [place] [address] [place] Platelet mean volume (Bld) [Entitic vol] 10.6 fL Normal 9.0-12.7 [facility] Comment on above: Order Comment: Speci men Type: BLOOD SPECIMENOrdering Facility: [facility] Address: [address] [place] [address] Performed By: #### 5 8410-2 ####[facility] LABIA [id number] [place] [id number] [place] Platelets (Bld) [#/Vol] 278 10*3/uL Normal 150-400 [facility] Comment on above: Order Comment: Speci men Type: BLOOD SPECIMENOrdering Facility: [facility] Address: [address] [place] [address] Performed By: #### 5 8410-2 ####[facility] LABCLIA [id number] [place] [address] [place] RBC (Bld) [#/Vol] 2.64 10*6/uL Low 3.90-5.20 [facility] Comment on above: Order Comment: Speci men Type: BLOOD SPECIMENOrdering Facility: [facility] Address: [address] [place] [address] Performed By: #### 5 8410-2 ####[facility] LABCLIA [id number] [place] [address] [place] WBC (Bld) [#/Vol] 10.75 10*3/uL Normal 3.70-11.00 [facility] Comment on above: Order Comment: Speci men Type: BLOOD SPECIMENOrdering Facility: [facility] Address: [address] [place] [address] Performed By: #### 5 8410-2 ####[facility] LABCLIA [id number] [place] [address] [place] CONSULT PROGon 08-26-2024 CONSULT PROG Normal [facility] Magnesium SerPl-mCncon 08-26 Magnesium [Mass/Vol] 2.2 mg/dL Normal 1.7-2.3 [facility] Comment on above: Order Comment: Speci men Type: BLOOD SPECIMENOrdering Facility: [facility] Address: [address] [place] [address] Performed By: #### 2 4321-2, 36433-5, 2777-1 ####[facility] LABCLIA [id number] [address] [address] [place] NUTRITIONon 08-26-2024 NUTRITION Normal [facility] Phosphate SerPl-mCncon 08-26 Phosphate [Mass/Vol] 5.1 mg/dL High 2.7-4.8 [facility] Comment on above: Order Comment: Speci men Type: BLOOD SPECIMENOrdering Facility: [facility] Address: [address] [place] [address] Performed By: #### 2 4321-2, 25579-2, 2777-1 ####[facility] LABCLIA [id number] [place] [address] [place] Bacteria Bld Culton 08-25-19 25 Bacteria identified Cx Nom (Bld) CULTURE, BLOOD: No growth 5 days GRAM STAIN: This blood culture had less than the recommended 8 ml per bottle, which could decrease the sensitivity of the test. Normal [facility] Comment on above: Performed By: #### 6 00-7 ####[facility] LABCLIA [id number] [address] [address] [place] Basic metabolic 2000 panelon 08-25-2024 Anion gap [Moles/Vol] 11 mmol/L Normal 8-15 [facility] Comment on above: Order Comment: Speci men Type: BLOOD SPECIMENOrdering Facility: [facility] Address: [address] [place], [place] [address] Performed By: #### 2 777-1, 24048-1, 52510-3 ####[facility] LABCLIA [id number] [address] [address] [place] Calcium [Mass/Vol] 8.9 mg/dL Normal 8.5-10.2 [facility] Comment on above: Order Comment: Speci men Type: BLOOD SPECIMENOrdering Facility: [facility] Address: [address] [place], [place] [address] Performed By: #### 2 777-1, 73082-2, ####[facility] LABCLIA [id number] [address] [address] [place] Chloride [Moles/Vol] 104 mmol/L Normal 98-107 [facility] Comment on above: Order Comment: Speci men Type: BLOOD SPECIMENOrdering Facility: [facility] Address: [address] [place] [address] Performed By: #### 2 777-1, 64362-5, ####[facility] LABIA [id number] [place] [id number] [place] CO2 [Moles/Vol] 24 mmol/L Normal 22-30 [facility] Comment on above: Order Comment: Speci men Type: BLOOD SPECIMENOrdering Facility: [facility] Address: [address] [place] [address] Performed By: #### 2 777-1, 11156-9, ####[facility] LABIA [id number] [place] [address] [place] Creatinine [Mass/Vol] 0.43 mg/dL Low 0.58-0.96 [facility] Comment on above: Order Comment: Speci men Type: BLOOD SPECIMENOrdering Facility: [facility] Address: [address] [place] [address] Performed By: #### 2 777-1, 06133-9, ####[facility] LABIA [id number] [place] [address] [place] Creatinine and Glomerular filtration rate.predicted panel (S/P/Bld) 129 mL/min/1.73m??? Normal >=60 [facility] Comment on above: Order Comment: Speci men Type: BLOOD SPECIMENOrdering Facility: [facility] Address: [address] [place] [address] Result Comment: Desiree mated Glomerular Filtration Rate (eGFR) is calculated using the 2020 CKD-EPI creatinine equation. This equation utilizes serum creatinine, sex, and age as parameters. The creatinine assay has traceable calibration to isotope dilution-mass spectrometry. Refer to KDIGO guidelines for clinical interpretation. In patients with unstable renal function, e.g. those with acute kidney injury, the eGFR may not accurately reflect actual GFR. Performed By: #### 2 777-1, 12050-9, ####[facility] LABCLIA [id number] [address] [address] [place] Glucose [Mass/Vol] 88 mg/dL Normal 74-99 [facility] Comment on above: Order Comment: Elfego pollock Type: BLOOD SPECIMENOrdering Facility: [facility] Address: [address] [place] [address] Result Comment: The [place] Diabetes Association (ADA) provides guidance for cutoff values for fasting glucose and random glucose. The ADA defines fasting as no caloric intake for at least 8 hours. Fasting plasma glucose results between 100 to 125 mg/dL indicate increased risk for diabetes (prediabetes).Fasting plasma glucose results greater than or equal to 126 mg/dL meet the criteria for diagnosis of diabetes. In the absence of unequivocal hyperglycemia, results should be confirmed by repeat testing. In a patient with classic symptoms of hyperglycemia or hyperglycemic crisis, random plasma glucose results greater than or equal to 200 mg/dL meet the criteria for diagnosis of diabetes.Reference: Standards of Medical Care in Diabetes 2016, [place] [employer]. Diabetes Care. 2016.39(Suppl 1). Performed By: #### 2 777-1, , ####[facility] LABCLIA [id number] [address] [address] [place] Potassium [Moles/Vol] 5.2 mmol/L High 3.7-5.1 [facility] Comment on above: Order Comment: Elfego pollock Type: BLOOD SPECIMENOrdering Facility: [facility] Address: [address] [place] [address] Performed By: #### 2 777-1, 28717-1, ####[facility] LABCLIA [id number] [facility] [address] [address] [place] Sodium [Moles/Vol] 139 mmol/L Normal 136-144 [facility] Comment on above: Order Comment: Speci men Type: BLOOD SPECIMENOrdering Facility: [facility] Address: [address] [place] [address] Performed By: #### 2 777-1, 62882-6, 46321-7 ####[facility] LABCLIA [id number] [place] [address] [place] Urea nitrogen [Mass/Vol] 15 mg/dL Normal 7-21 [facility] Comment on above: Order Comment: Speci men Type: BLOOD SPECIMENOrdering Facility: [facility] Address: [address] [place] [address] Performed By: #### 2 777-1, 05851-2, ####[facility] LABCLIA [id number] [address] [place] CASE MANAGEMon 08-25-2024 CASE MANAGEM Normal [facility] CBC panel Auto (Bld)on 08-25 Erythrocyte distribution width (RBC) [Ratio] 14.6 % Normal 11.5-15.0 [facility] Comment on above: Order Comment: Speci men Type: BLOOD SPECIMENOrdering Facility: [facility] Address: [address] [place] [address] Performed By: #### 5 8410-2 ####[facility] LABCLIA [id number] [place] [address] [place] Hematocrit (Bld) [Volume fraction] 23.3 % Low 36.0-46.0 [facility] Comment on above: Order Comment: Speci men Type: BLOOD SPECIMENOrdering Facility: [facility] Address: [address] [place] [address] Performed By: #### 5 8410-2 ####[facility] LABCLIA [id number] [place] [address] [place] Hemoglobin (Bld) [Mass/Vol] 7.3 g/dL Low 11.5-15.5 [facility] Comment on above: Order Comment: Speci men Type: BLOOD SPECIMENOrdering Facility: [facility] Address: [address] [place] [address] Performed By: #### 5 8410-2 ####[facility] LABIA [id number] [place] [address] [place] MCH (RBC) [Entitic mass] 30.0 pg Normal 26.0-34.0 [facility] Comment on above: Order Comment: Speci men Type: BLOOD SPECIMENOrdering Facility: [facility] Address: [address] [place] [address] Performed By: #### 5 8410-2 ####[facility] LABIA [id number] [place] [address] [place] MCHC (RBC) [Mass/Vol] 31.3 g/dL Normal 30.5-36.0 [facility] Comment on above: Order Comment: Speci men Type: BLOOD SPECIMENOrdering Facility: [facility] Address: [address] [place] [address] Performed By: #### 5 8410-2 ####[facility] LABIA [id number] [place] [address] [place] MCV (RBC) [Entitic vol] 95.9 fL Normal 80.0-100.0 [facility] Comment on above: Order Comment: Speci men Type: BLOOD SPECIMENOrdering Facility: [facility] Address: [address] [place] [address] Performed By: #### 5 8410-2 ####[facility] LABIA [id number] [place] [address] [place] Nucleated RBC (Bld) [#/Vol] 0.06 10*3/uL High <0.01 [facility] Comment on above: Order Comment: Speci men Type: BLOOD SPECIMENOrdering Facility: [facility] Address: [address] [place] [address] Performed By: #### 5 8410-2 ####[facility] LABCLIA [id number] [place] [address] [place] Platelet mean volume (Bld) [Entitic vol] 11.9 fL Normal 9.0-12.7 [facility] Comment on above: Order Comment: Speci men Type: BLOOD SPECIMENOrdering Facility: [facility] Address: [address] [place] [address] Performed By: #### 5 8410-2 ####[facility] LABIA [id number] [place] [address] [place] Platelets (Bld) [#/Vol] 264 10*3/uL Normal 150-400 [facility] Comment on above: Order Comment: Speci men Type: BLOOD SPECIMENOrdering Facility: [facility] Address: [address] [place] [address] Performed By: #### 5 8410-2 ####[facility] LABIA [id number] [place] [address] [place] RBC (Bld) [#/Vol] 2.43 10*6/uL Low 3.90-5.20 [facility] Comment on above: Order Comment: Speci men Type: BLOOD SPECIMENOrdering Facility: [facility] Address: [address] [place] [address] Performed By: #### 5 8410-2 ####[facility] LABIA [id number] [place] [address] [place] WBC (Bld) [#/Vol] 11.52 10*3/uL High 3.70-11.00 [facility] Comment on above: Order Comment: Speci men Type: BLOOD SPECIMENOrdering Facility: [facility] Address: [address] [place] [address] Result Comment: No c lot detected.Results checked and verified. Performed By: #### 5 8410-2 ####[facility] LABCLIA [id number] [address] [address] [place] CONSULT PROGon 08-25-2024 CONSULT PROG Normal [facility] Magnesium SerPl-ncon 08-25 Magnesium [Mass/Vol] 2.4 mg/dL High 1.7-2.3 [facility] Comment on above: Order Comment: Speci men Type: BLOOD SPECIMENOrdering Facility: [facility] Address: [address] [place], [place] [address] Performed By: #### 2 777-1, 51305-2, ####[facility] LABCLIA [id number] [place] [address] [place] Phosphate SerPl-mCncon 08-25 Phosphate [Mass/Vol] 4.7 mg/dL Normal 2.7-4.8 [facility] Comment on above: Order Comment: Speci men Type: BLOOD SPECIMENOrdering Facility: [facility] Address: [address] [place], [place] [address] Performed By: #### 2 777-1, 56831-0, ####[facility] LABCLIA [id number] [place] [address] [place] THERAPY NTon 08-25-2024 THERAPY NT Normal [facility] THERAPY NT Normal [facility] ALLIED HEALTHon 08-24-2024 ALLIED HEALTH Normal [facility] Basic metabolic 2000 panelon 08-24-2024 Anion gap [Moles/Vol] 9 mmol/L Normal 8-15 [facility] Comment on above: Order Comment: Speci men Type: BLOOD SPECIMENOrdering Facility: [facility] Address: [address] [place] [id number] Performed By: #### 2 4321-2, 2777-1, ####[facility] LABCLIA [id number] [place] [address] [place] Calcium [Mass/Vol] 9.0 mg/dL Normal 8.5-10.2 [facility] Comment on above: Order Comment: Speci men Type: BLOOD SPECIMENOrdering Facility: [facility] Address: [address] [place] [address] Performed By: #### 2 4321-2, 27701-02, ####[facility] LABCLIA [id number] [place] [address] [place] Chloride [Moles/Vol] 100 mmol/L Normal 98-107 [facility] Comment on above: Order Comment: Speci men Type: BLOOD SPECIMENOrdering Facility: [facility] Address: [address] [place] [address] Performed By: #### 2 4321-2, 2776-07, ####[facility] LABCLIA [id number] [place] [address] [place] CO2 [Moles/Vol] 28 mmol/L Normal 22-30 [facility] Comment on above: Order Comment: Speci men Type: BLOOD SPECIMENOrdering Facility: [facility] Address: [address] [place] [address] Performed By: #### 2 4321-2, 2776-07, ####[facility] LABCLIA [id number] [place] [address] [place] Creatinine [Mass/Vol] 0.39 mg/dL Low 0.58-0.96 [facility] Comment on above: Order Comment: Speci men Type: BLOOD SPECIMENOrdering Facility: [facility] Address: [address] [place] [address] Performed By: #### 2 4321-2, 277-, ####[facility] LABCLIA [id number] [place] [id number] [place] Creatinine and Glomerular filtration rate.predicted panel (S/P/Bld) 133 mL/min/1.73m??? Normal >=60 [facility] Comment on above: Order Comment: Elfego pollock Type: BLOOD SPECIMENOrdering Facility: [facility] Address: [address] [place] [address] Result Comment: Desiree mated Glomerular Filtration Rate (eGFR) is calculated using the 2020 CKD-EPI creatinine equation. This equation utilizes serum creatinine, sex, and age as parameters. The creatinine assay has traceable calibration to isotope dilution-mass spectrometry. Refer to KDIGO guidelines for clinical interpretation. In patients with unstable renal function, e.g. those with acute kidney injury, the eGFR may not accurately reflect actual GFR. Performed By: #### 2 4321-2, 7, ####[facility] LABIA [id number] [place] [address] [place] Glucose [Mass/Vol] 106 mg/dL High 74-99 [facility] Comment on above: Order Comment: Elfego pollock Type: BLOOD SPECIMENOrdering Facility: [facility] Address: [address] [place] [address] Result Comment: The [place] Diabetes Association (ADA) provides guidance for cutoff values for fasting glucose and random glucose. The ADA defines fasting as no caloric intake for at least 8 hours. Fasting plasma glucose results between 100 to 125 mg/dL indicate increased risk for diabetes (prediabetes).Fasting plasma glucose results greater than or equal to 126 mg/dL meet the criteria for diagnosis of diabetes. In the absence of unequivocal hyperglycemia, results should be confirmed by repeat testing. In a patient with classic symptoms of hyperglycemia or hyperglycemic crisis, random plasma glucose results greater than or equal to 200 mg/dL meet the criteria for diagnosis of diabetes.Reference: Standards of Medical Care in Diabetes 2016, [place] [employer]. Diabetes Care. 2016.39(Suppl 1). Performed By: #### 2 4321-2, 2777-, ####[facility] LABIA [id number] [place] [id number] [place] Potassium [Moles/Vol] 3.8 mmol/L Normal 3.7-5.1 [facility] Comment on above: Order Comment: Speci men Type: BLOOD SPECIMENOrdering Facility: [facility] Address: [address] [place] [address] Performed By: #### 2 4321-2, 2776-07, ####[facility] LABCLIA [id number] [place] [id number] [place] Sodium [Moles/Vol] 137 mmol/L Normal 136-144 [facility] Comment on above: Order Comment: Speci men Type: BLOOD SPECIMENOrdering Facility: [facility] Address: [address] [place] [address] Performed By: #### 2 4321-2, 2776-07, ####[facility] LABCLIA [id number] [place] [address] [place] Urea nitrogen [Mass/Vol] 7 mg/dL Normal 7-21 [facility] Comment on above: Order Comment: Speci men Type: BLOOD SPECIMENOrdering Facility: [facility] Address: [address] [place] [address] Performed By: #### 2 4321-2, 2776-07, ####[facility] LABCLIA [id number] [place] [address] [place] CBC panel Auto (Bld)on 08-24 Erythrocyte distribution width (RBC) [Ratio] 13.7 % Normal 11.5-15.0 [facility] Comment on above: Order Comment: Speci men Type: BLOOD SPECIMENOrdering Facility: [facility] Address: [address] [place] [address] Performed By: #### 5 8410-2 ####[facility] LABCLIA [id number] [place] [id number] [place] Hematocrit (Bld) [Volume fraction] 23.4 % Low 36.0-46.0 [facility] Comment on above: Order Comment: Speci men Type: BLOOD SPECIMENOrdering Facility: [facility] Address: [address] [place] [address] Performed By: #### 5 8410-2 ####[facility] [id number] [place] [address] [place] Hemoglobin (Bld) [Mass/Vol] 7.5 g/dL Low 11.5-15.5 [facility] Comment on above: Order Comment: Speci men Type: BLOOD SPECIMENOrdering Facility: [facility] Address: [address] [place] [address] Performed By: #### 5 8410-2 ####[facility] LAB[facility] [id number] [place] [address] [place] MCH (RBC) [Entitic mass] 28.3 pg Normal 26.0-34.0 [facility] Comment on above: Order Comment: Speci men Type: BLOOD SPECIMENOrdering Facility: [facility] Address: [address] [place] [address] Performed By: #### 5 8410-2 ####[facility] [id number] [place] [address] [place] MCHC (RBC) [Mass/Vol] 32.1 g/dL Normal 30.5-36.0 [facility] Comment on above: Order Comment: Speci men Type: BLOOD SPECIMENOrdering Facility: [facility] Address: [address] [place] [address] Performed By: #### 5 8410-2 ####[facility] LABIA [id number] [place] [address] [place] MCV (RBC) [Entitic vol] 88.3 fL Normal 80.0-100.0 [facility] Comment on above: Order Comment: Speci men Type: BLOOD SPECIMENOrdering Facility: [facility] Address: [address] [place] [address] Performed By: #### 5 8410-2 ####[facility] LABCLIA [id number] [place] [address] [place] Nucleated RBC (Bld) [#/Vol] 10*3/uL Normal <0.01 [facility] Comment on above: Order Comment: Speci men Type: BLOOD SPECIMENOrdering Facility: [facility] Address: [address] [place] [address] Performed By: #### 5 8410-2 ####[facility] LABIA [id number] [place] [address] [place] Platelet mean volume (Bld) [Entitic vol] 10.6 fL Normal 9.0-12.7 [facility] Comment on above: Order Comment: Speci men Type: BLOOD SPECIMENOrdering Facility: [facility] Address: [address] [place] [address] Performed By: #### 5 8410-2 ####[facility] LABIA [id number] [place] [address] [place] Platelets (Bld) [#/Vol] 217 10*3/uL Normal 150-400 [facility] Comment on above: Order Comment: Speci men Type: BLOOD SPECIMENOrdering Facility: [facility] Address: [address] [place] [address] Performed By: #### 5 8410-2 ####[facility] LABIA [id number] [place] [address] [place] RBC (Bld) [#/Vol] 2.65 10*6/uL Low 3.90-5.20 [facility] Comment on above: Order Comment: Speci men Type: BLOOD SPECIMENOrdering Facility: [facility] Address: [address] [place] [address] Performed By: #### 5 8410-2 ####[facility] LABIA [id number] [id number] [address] [place] WBC (Bld) [#/Vol] 8.64 10*3/uL Normal 3.70-11.00 [facility] Comment on above: Order Comment: Speci men Type: BLOOD SPECIMENOrdering Facility: [facility] Address: [address] [place] [address] Performed By: #### 5 8410-2 ####[facility] LABCLIA [id number] [place] [address] [place] CONSULT PROGon 08-24-2024 CONSULT PROG Normal [facility] Magnesium SerPl-mCncon 08-24 Magnesium [Mass/Vol] 1.9 mg/dL Normal 1.7-2.3 [facility] Comment on above: Order Comment: Speci men Type: BLOOD SPECIMENOrdering Facility: [facility] Address: [address] [place] [address] Performed By: #### 2 4321-2, 2777-1, ####[facility] LABCLIA [id number] [place] [address] [place] NURSING PROGon 08-24-2024 NURSING PROG Normal [facility] PT EDon 08-24-2024 PT ED Normal [facility] Phosphate SerPl-mCncon 08-24 Phosphate [Mass/Vol] 5.5 mg/dL High 2.7-4.8 [facility] Comment on above: Order Comment: Speci men Type: BLOOD SPECIMENOrdering Facility: [facility] Address: [address] [place] [address] Result Comment: Resu lt rechecked. Performed By: #### 2 4321-2, 2777-1, 50797-4 ####[facility] LABCLIA [id number] [place] [id number] [place] Basic metabolic 2000 panelon 08-23-2024 Anion gap [Moles/Vol] 8 mmol/L Normal 8-15 [facility] Comment on above: Order Comment: Speci men Type: BLOOD SPECIMENOrdering Facility: [facility] Address: [address] [place] [address] Performed By: #### 2 4321-2, , 2776-07 ####[facility] LABCLIA [id number] [address] [address] [place] Calcium [Mass/Vol] 8.5 mg/dL Normal 8.5-10.2 [facility] Comment on above: Order Comment: Speci men Type: BLOOD SPECIMENOrdering Facility: [facility] Address: [address] [place], [place] [address] Performed By: #### 2 4321-2, , 2776-07 ####[facility] LABCLIA [id number] [place] [address] [place] Chloride [Moles/Vol] 95 mmol/L Low 98-107 [facility] Comment on above: Order Comment: Speci men Type: BLOOD SPECIMENOrdering Facility: [facility] Address: [address] [place], [place] [address] Performed By: #### 2 4321-2, , 2776-07 ####[facility] LABCLIA [id number] [place] [address] [place] CO2 [Moles/Vol] 30 mmol/L Normal 22-30 [facility] Comment on above: Order Comment: Speci men Type: BLOOD SPECIMENOrdering Facility: [facility] Address: [address] [place] [address] Performed By: #### 2 4321-2, , 2776-07 ####[facility] LABCLIA [id number] [place] [id number] [place] Creatinine [Mass/Vol] 0.42 mg/dL Low 0.58-0.96 [facility] Comment on above: Order Comment: Speci men Type: BLOOD SPECIMENOrdering Facility: [facility] Address: [address] [place] [address] Performed By: #### 2 4321-2, 47531-5, 2777-1 ####[facility] LABIA [id number] [place] [address] [place] Creatinine and Glomerular filtration rate.predicted panel (S/P/Bld) 130 mL/min/1.73m??? Normal >=60 [facility] Comment on above: Order Comment: Elfego pollock Type: BLOOD SPECIMENOrdering Facility: [facility] Address: [address] [place] [address] Result Comment: Desiree mated Glomerular Filtration Rate (eGFR) is calculated using the 2020 CKD-EPI creatinine equation. This equation utilizes serum creatinine, sex, and age as parameters. The creatinine assay has traceable calibration to isotope dilution-mass spectrometry. Refer to KDIGO guidelines for clinical interpretation. In patients with unstable renal function, e.g. those with acute kidney injury, the eGFR may not accurately reflect actual GFR. Performed By: #### 2 4321-2, 09766-8, 2777- ####[facility] LABIA [id number] [place] [id number] [place] Glucose [Mass/Vol] 119 mg/dL High 74-99 [facility] Comment on above: Order Comment: Elfego pollock Type: BLOOD SPECIMENOrdering Facility: [facility] Address: [address] [place] [address] Result Comment: The [place] Diabetes Association (ADA) provides guidance for cutoff values for fasting glucose and random glucose. The ADA defines fasting as no caloric intake for at least 8 hours. Fasting plasma glucose results between 100 to 125 mg/dL indicate increased risk for diabetes (prediabetes).Fasting plasma glucose results greater than or equal to 126 mg/dL meet the criteria for diagnosis of diabetes. In the absence of unequivocal hyperglycemia, results should be confirmed by repeat testing. In a patient with classic symptoms of hyperglycemia or hyperglycemic crisis, random plasma glucose results greater than or equal to 200 mg/dL meet the criteria for diagnosis of diabetes.Reference: Standards of Medical Care in Diabetes 2016, [place] [employer]. Diabetes Care. 2016.39(Suppl 1). Performed By: #### 2 4321-2, , 2776-07 ####[facility] LABCLIA [id number] [address] [address] [place] Potassium [Moles/Vol] 3.6 mmol/L Low 3.7-5.1 [facility] Comment on above: Order Comment: Speci men Type: BLOOD SPECIMENOrdering Facility: [facility] Address: [address] [place] [address] Performed By: #### 2 4321-2, , 2776-07 ####[facility] LABCLIA [id number] [place] [id number] [place] Sodium [Moles/Vol] 133 mmol/L Low 136-144 [facility] Comment on above: Order Comment: Speci men Type: BLOOD SPECIMENOrdering Facility: [facility] Address: [address] [place] [address] Performed By: #### 2 4321-2, , 2776-07 ####[facility] LABIA [id number] [place] [id number] [place] Urea nitrogen [Mass/Vol] 4 mg/dL Low 7-21 [facility] Comment on above: Order Comment: Speci men Type: BLOOD SPECIMENOrdering Facility: [facility] Address: [address] [place] [address] Performed By: #### 2 4321-2, , 2776-07 ####[facility] LABIA [id number] [address] [address] [place] CASE MANAGEMon 08-23-2024 CASE MANAGEM Normal [facility] CASE MANAGEM Normal [facility] CBC panel Auto (Bld)on 08-23 Erythrocyte distribution width (RBC) [Ratio] 13.5 % Normal 11.5-15.0 [facility] Comment on above: Order Comment: Speci men Type: BLOOD SPECIMENOrdering Facility: [facility] Address: [address] [place] [address] Performed By: #### 5 8410-2 ####[facility] LABCLIA [id number] [place] [address] [place] Hematocrit (Bld) [Volume fraction] 23.3 % Low 36.0-46.0 [facility] Comment on above: Order Comment: Speci men Type: BLOOD SPECIMENOrdering Facility: [facility] Address: [address] [place] [address] Performed By: #### 5 8410-2 ####[facility] LABCLIA [id number] [place] [address] [place] Hemoglobin (Bld) [Mass/Vol] 7.5 g/dL Low 11.5-15.5 [facility] Comment on above: Order Comment: Speci men Type: BLOOD SPECIMENOrdering Facility: [facility] Address: [address] [place] [address] Performed By: #### 5 8410-2 ####[facility] LABCLIA [id number] [place] [address] [place] MCH (RBC) [Entitic mass] 28.0 pg Normal 26.0-34.0 [facility] Comment on above: Order Comment: Speci men Type: BLOOD SPECIMENOrdering Facility: [facility] Address: [address] [place] [address] Performed By: #### 5 8410-2 ####[facility] LABCLIA [id number] [place] [address] [place] MCHC (RBC) [Mass/Vol] 32.2 g/dL Normal 30.5-36.0 [facility] Comment on above: Order Comment: Speci men Type: BLOOD SPECIMENOrdering Facility: [facility] Address: [address] [place] [address] Performed By: #### 5 8410-2 ####[facility] LABCLIA [id number] [place] [address] [place] MCV (RBC) [Entitic vol] 86.9 fL Normal 80.0-100.0 [facility] Comment on above: Order Comment: Speci men Type: BLOOD SPECIMENOrdering Facility: [facility] Address: [address] [place] [address] Performed By: #### 5 8410-2 ####[facility] LABIA [id number] [place] [address] [place] Nucleated RBC (Bld) [#/Vol] 10*3/uL Normal <0.01 [facility] Comment on above: Order Comment: Speci men Type: BLOOD SPECIMENOrdering Facility: [facility] Address: [address] [place] [address] Performed By: #### 5 8410-2 ####[facility] LABIA [id number] [place] [address] [place] Platelet mean volume (Bld) [Entitic vol] 9.9 fL Normal 9.0-12.7 [facility] Comment on above: Order Comment: Speci men Type: BLOOD SPECIMENOrdering Facility: [facility] Address: [address] [place] [address] Performed By: #### 5 8410-2 ####[facility] LABIA [id number] [place] [address] [place] Platelets (Bld) [#/Vol] 226 10*3/uL Normal 150-400 [facility] Comment on above: Order Comment: Speci men Type: BLOOD SPECIMENOrdering Facility: [facility] Address: [address] [place] [address] Performed By: #### 5 8410-2 ####[facility] LABCLIA [id number] [place] [address] [place] RBC (Bld) [#/Vol] 2.68 10*6/uL Low 3.90-5.20 [facility] Comment on above: Order Comment: Speci men Type: BLOOD SPECIMENOrdering Facility: [facility] Address: [address] [place] [address] Performed By: #### 5 8410-2 ####[facility] LABCLIA [id number] [place] [address] [place] WBC (Bld) [#/Vol] 9.24 10*3/uL Normal 3.70-11.00 [facility] Comment on above: Order Comment: Speci men Type: BLOOD SPECIMENOrdering Facility: [facility] Address: [address] [place] [address] Performed By: #### 5 8410-2 ####[facility] LABCLIA [id number] [place] [address] [place] CONSULT PROGon 08-23-2024 CONSULT PROG Normal [facility] Magnesium SerPl-mCncon 08-23 Magnesium [Mass/Vol] 1.7 mg/dL Normal 1.7-2.3 [facility] Comment on above: Order Comment: Speci men Type: BLOOD SPECIMENOrdering Facility: [facility] Address: [address] [place] [address] Performed By: #### 2 4321-2, 24793-6, 2777-1 ####[facility] LABCLIA [id number] [place] [address] [place] Phosphate SerPl-mCncon 08-23 Phosphate [Mass/Vol] 2.2 mg/dL Low 2.7-4.8 [facility] Comment on above: Order Comment: Speci men Type: BLOOD SPECIMENOrdering Facility: [facility] Address: [address] [place] [address] Performed By: #### 2 4321-2, 92442-7, 2777-1 ####[facility] LABCLIA [id number] [address] [address] [place] THERAPY NTon 08-23-2024 THERAPY NT Normal [facility] THERAPY NT Normal [facility] ALLIED HEALTHon 08-22-2024 ALLIED HEALTH Normal [facility] ALLIED HEALTH Normal [facility] ALLIED HEALTH Normal [facility] Basic metabolic 2000 panelon 08-22-2024 Anion gap [Moles/Vol] 7 mmol/L Low 8-15 [facility] Comment on above: Order Comment: Speci men Type: BLOOD SPECIMENOrdering Facility: [facility] Address: [address] [place] [address] Performed By: #### 2 4321-2, 27701-02, ####[facility] LABCLIA [id number] [address] [address] [place] Calcium [Mass/Vol] 8.6 mg/dL Normal 8.5-10.2 [facility] Comment on above: Order Comment: Speci men Type: BLOOD SPECIMENOrdering Facility: [facility] Address: [address] [place] [address] Performed By: #### 2 4321-2, 2776-07, ####[facility] LABCLIA [id number] [address] [address] [place] Chloride [Moles/Vol] 97 mmol/L Low 98-107 [facility] Comment on above: Order Comment: Speci men Type: BLOOD SPECIMENOrdering Facility: [facility] Address: [address] [place] [address] Performed By: #### 2 4321-2, 2776-07, ####[facility] LABCLIA [id number] [address] [address] [place] CO2 [Moles/Vol] 30 mmol/L Normal 22-30 [facility] Comment on above: Order Comment: Speci men Type: BLOOD SPECIMENOrdering Facility: [facility] Address: [address] [place] [address] Performed By: #### 2 4321-2, 2777-, ####[facility] LABIA [id number] [place] [id number] [place] Creatinine [Mass/Vol] 0.44 mg/dL Low 0.58-0.96 [facility] Comment on above: Order Comment: Speci men Type: BLOOD SPECIMENOrdering Facility: [facility] Address: [address] [place] [address] Performed By: #### 2 4321-2, 27701-02, ####[facility] [id number] [place] [address] [place] Creatinine and Glomerular filtration rate.predicted panel (S/P/Bld) 129 mL/min/1.73m??? Normal >=60 [facility] Comment on above: Order Comment: Elfego pollock Type: BLOOD SPECIMENOrdering Facility: [facility] Address: [address] [place] [address] Result Comment: Desiree mated Glomerular Filtration Rate (eGFR) is calculated using the 2020 CKD-EPI creatinine equation. This equation utilizes serum creatinine, sex, and age as parameters. The creatinine assay has traceable calibration to isotope dilution-mass spectrometry. Refer to KDIGO guidelines for clinical interpretation. In patients with unstable renal function, e.g. those with acute kidney injury, the eGFR may not accurately reflect actual GFR. Performed By: #### 2 4321-2, 2776-07, ####[facility] LABIA [id number] [place] [id number] [place] Glucose [Mass/Vol] 104 mg/dL High 74-99 [facility] Comment on above: Order Comment: Darryli maris Type: BLOOD SPECIMENOrdering Facility: [facility] Address: [address] [place] [address] Result Comment: The [place] Diabetes [employer] (ADA) provides guidance for cutoff values for fasting glucose and random glucose. The ADA defines fasting as no caloric intake for at least 8 hours. Fasting plasma glucose results between 100 to 125 mg/dL indicate increased risk for diabetes (prediabetes).Fasting plasma glucose results greater than or equal to 126 mg/dL meet the criteria for diagnosis of diabetes. In the absence of unequivocal hyperglycemia, results should be confirmed by repeat testing. In a patient with classic symptoms of hyperglycemia or hyperglycemic crisis, random plasma glucose results greater than or equal to 200 mg/dL meet the criteria for diagnosis of diabetes.Reference: Standards of Medical Care in Diabetes 2016, [place] [employer]. Diabetes Care. 2016.39(Suppl 1). Performed By: #### 2 4321-2, 2776-07, ####[facility] LABCLIA [id number] [place] [address] [place] Potassium [Moles/Vol] 3.9 mmol/L Normal 3.7-5.1 [facility] Comment on above: Order Comment: Speci men Type: BLOOD SPECIMENOrdering Facility: [facility] Address: [address] [place] [address] Performed By: #### 2 432-2, 2776-07, ####[facility] LABCLIA [id number] [place] [address] [place] Sodium [Moles/Vol] 134 mmol/L Low 136-144 [facility] Comment on above: Order Comment: Darryli men Type: BLOOD SPECIMENOrdering Facility: [facility] Address: [address] [place] [address] Performed By: #### 2 4321-2, 2776-07, ####[facility] LABCLIA [id number] [address] [address] [place] Urea nitrogen [Mass/Vol] 4 mg/dL Low 7-21 [facility] Comment on above: Order Comment: Speci men Type: BLOOD SPECIMENOrdering Facility: [facility] Address: [address] [place] [address] Performed By: #### 2 4321-2, 2776-07, ####[facility] LABCLIA [id number] [address] [address] [place] Anion gap [Moles/Vol] 12 mmol/L Normal 8-15 [facility] Comment on above: Order Comment: Speci men Type: BLOOD SPECIMENOrdering Facility: [facility] Address: [address] [place] [address] Performed By: #### 2 4321-2, 19930-7, 277-, 257-8 ####[facility] LABCLIA [id number] [address] [address] [place] Calcium [Mass/Vol] 8.7 mg/dL Normal 8.5-10.2 [facility] Comment on above: Order Comment: Speci men Type: BLOOD SPECIMENOrdering Facility: [facility] Address: [address] [place] [address] Performed By: #### 2 4321-2, 81172-5, 27701-02, 8 ####[facility] LABCLIA [id number] [place] [id number] [place] Chloride [Moles/Vol] 93 mmol/L Low 98-107 [facility] Comment on above: Order Comment: Speci men Type: BLOOD SPECIMENOrdering Facility: [facility] Address: [address] [place] [address] Performed By: #### 2 4321-2, 17473-2, 27701-02, 2570-8 ####[facility] LABCLIA [id number] [address] [address] [place] CO2 [Moles/Vol] 27 mmol/L Normal 22-30 [facility] Comment on above: Order Comment: Speci men Type: BLOOD SPECIMENOrdering Facility: [facility] Address: [address] [place], [place] [address] Performed By: #### 2 4321-2, 75665-1, 2777-, 2570-8 ####[facility] LABCLIA [id number] [place] [address] [place] Creatinine [Mass/Vol] 0.48 mg/dL Low 0.58-0.96 [facility] Comment on above: Order Comment: Elfego pollock Type: BLOOD SPECIMENOrdering Facility: [facility] Address: [address] [place] [address] Performed By: #### 2 4321-2, 43005-9, 2777-1, 2570-8 ####[facility] LABIA [id number] [place] [address] [place] Creatinine and Glomerular filtration rate.predicted panel (S/P/Bld) 126 mL/min/1.73m??? Normal >=60 [facility] Comment on above: Order Comment: Elfego pollock Type: BLOOD SPECIMENOrdering Facility: [facility] Address: [address] [place] [address] Result Comment: Desiree mated Glomerular Filtration Rate (eGFR) is calculated using the 2020 CKD-EPI creatinine equation. This equation utilizes serum creatinine, sex, and age as parameters. The creatinine assay has traceable calibration to isotope dilution-mass spectrometry. Refer to KDIGO guidelines for clinical interpretation. In patients with unstable renal function, e.g. those with acute kidney injury, the eGFR may not accurately reflect actual GFR. Performed By: #### 2 4321-2, 42626-2, 2777-1, 257-8 ####[facility] LABIA [id number] [place] [id number] [place] Glucose [Mass/Vol] 96 mg/dL Normal 74-99 [facility] Comment on above: Order Comment: Speci men Type: BLOOD SPECIMENOrdering Facility: [facility] Address: [address] [place] [address] Result Comment: The [place] Diabetes Association (ADA) provides guidance for cutoff values for fasting glucose and random glucose. The ADA defines fasting as no caloric intake for at least 8 hours. Fasting plasma glucose results between 100 to 125 mg/dL indicate increased risk for diabetes (prediabetes).Fasting plasma glucose results greater than or equal to 126 mg/dL meet the criteria for diagnosis of diabetes. In the absence of unequivocal hyperglycemia, results should be confirmed by repeat testing. In a patient with classic symptoms of hyperglycemia or hyperglycemic crisis, random plasma glucose results greater than or equal to 200 mg/dL meet the criteria for diagnosis of diabetes.Reference: Standards of Medical Care in Diabetes 2016, [place] Diabetes Association. Diabetes Care. 2016.39(Suppl 1). Performed By: #### 2 4321-2, 82231-2, 2776-07, 2571-02 ####[facility] LABCLIA [id number] [place] [id number] [place] Potassium [Moles/Vol] 3.3 mmol/L Low 3.7-5.1 [facility] Comment on above: Order Comment: Speci men Type: BLOOD SPECIMENOrdering Facility: [facility] Address: [address] [place] [address] Performed By: #### 2 432-2, , 2776-07, 2571-02 ####[facility] LABCLIA [id number] [place] [address] [place] Sodium [Moles/Vol] 132 mmol/L Low 136-144 [facility] Comment on above: Order Comment: Speci men Type: BLOOD SPECIMENOrdering Facility: [facility] Address: [address] [place] [address] Performed By: #### 2 432-2, , 2776-07, 2571-02 ####[facility] LABCLIA [id number] [place] [id number] [place] Urea nitrogen [Mass/Vol] 5 mg/dL Low 7-21 [facility] Comment on above: Order Comment: Speci men Type: BLOOD SPECIMENOrdering Facility: [facility] Address: [address] [place] [address] Performed By: #### 2 4321-2, 59678-4, 2776-07, 8 ####[facility] LABCLIA [id number] [place] [address] [place] CASE MANAGEMon 08-22-2024 CASE MANAGEM Normal [facility] CASE MANAGEM Normal [facility] CASE MANAGEM Normal [facility] CBC panel Auto (Bld)on 08-22 Erythrocyte distribution width (RBC) [Ratio] 13.3 % Normal 11.5-15.0 [facility] Comment on above: Order Comment: Speci men Type: BLOOD SPECIMENOrdering Facility: [facility] Address: [address] [place] [address] Performed By: #### 5 8410-2 ####[facility] LABCLIA [id number] [place] [address] [place] Hematocrit (Bld) [Volume fraction] 26.1 % Low 36.0-46.0 [facility] Comment on above: Order Comment: Speci men Type: BLOOD SPECIMENOrdering Facility: [facility] Address: [address] [place] [address] Performed By: #### 5 8410-2 ####[facility] LABCLIA [id number] [place] [address] [place] Hemoglobin (Bld) [Mass/Vol] 8.4 g/dL Low 11.5-15.5 [facility] Comment on above: Order Comment: Speci men Type: BLOOD SPECIMENOrdering Facility: [facility] Address: [address] [place] [address] Performed By: #### 5 8410-2 ####[facility] LABCLIA [id number] [place] [address] [place] MCH (RBC) [Entitic mass] 27.9 pg Normal 26.0-34.0 [facility] Comment on above: Order Comment: Speci men Type: BLOOD SPECIMENOrdering Facility: [facility] Address: [address] [place] [address] Performed By: #### 5 8410-2 ####[facility] LABCLIA [id number] [place] [address] [place] MCHC (RBC) [Mass/Vol] 32.2 g/dL Normal 30.5-36.0 [facility] Comment on above: Order Comment: Speci men Type: BLOOD SPECIMENOrdering Facility: [facility] Address: [address] [place] [address] Performed By: #### 5 8410-2 ####[facility] LABIA [id number] [place] [address] [place] MCV (RBC) [Entitic vol] 86.7 fL Normal 80.0-100.0 [facility] Comment on above: Order Comment: Speci men Type: BLOOD SPECIMENOrdering Facility: [facility] Address: [address] [place] [address] Performed By: #### 5 8410-2 ####[facility] [id number] [place] [address] [place] Nucleated RBC (Bld) [#/Vol] 10*3/uL Normal <0.01 [facility] Comment on above: Order Comment: Speci men Type: BLOOD SPECIMENOrdering Facility: [facility] Address: [address] [place] [address] Performed By: #### 5 8410-2 ####[facility] LABIA [id number] [place] [address] [place] Platelet mean volume (Bld) [Entitic vol] 10.0 fL Normal 9.0-12.7 [facility] Comment on above: Order Comment: Speci men Type: BLOOD SPECIMENOrdering Facility: [facility] Address: [address] [place] [address] Performed By: #### 5 8410-2 ####[facility] LABIA [id number] [place] [address] [place] Platelets (Bld) [#/Vol] 265 10*3/uL Normal 150-400 [facility] Comment on above: Order Comment: Speci men Type: BLOOD SPECIMENOrdering Facility: [facility] Address: [address] [place] [address] Performed By: #### 5 8410-2 ####[facility] LABCLIA [id number] [place] [address] [place] RBC (Bld) [#/Vol] 3.01 10*6/uL Low 3.90-5.20 [facility] Comment on above: Order Comment: Speci men Type: BLOOD SPECIMENOrdering Facility: [facility] Address: [address] [place] [address] Performed By: #### 5 8410-2 ####[facility] LABCLIA [id number] [place] [address] [place] WBC (Bld) [#/Vol] 10.62 10*3/uL Normal 3.70-11.00 [facility] Comment on above: Order Comment: Speci men Type: BLOOD SPECIMENOrdering Facility: [facility] Address: [address] [place] [address] Performed By: #### 5 8410-2 ####[facility] LABCLIA [id number] [place] [address] [place] Erythrocyte distribution width (RBC) [Ratio] 13.5 % Normal 11.5-15.0 [facility] Comment on above: Order Comment: Speci men Type: BLOOD SPECIMENOrdering Facility: [facility] Address: [address] [place] [address] Performed By: #### 5 8410-2 ####[facility] LABCLIA [id number] [place] [address] [place] Hematocrit (Bld) [Volume fraction] 26.9 % Low 36.0-46.0 [facility] Comment on above: Order Comment: Speci men Type: BLOOD SPECIMENOrdering Facility: [facility] Address: [address] [place] [address] Performed By: #### 5 8410-2 ####[facility] LABCLIA [id number] [place] [address] [place] Hemoglobin (Bld) [Mass/Vol] 8.8 g/dL Low 11.5-15.5 [facility] Comment on above: Order Comment: Speci men Type: BLOOD SPECIMENOrdering Facility: [facility] Address: [address] [place] [address] Performed By: #### 5 8410-2 ####[facility] LABCLIA [id number] [place] [address] [place] MCH (RBC) [Entitic mass] 28.5 pg Normal 26.0-34.0 [facility] Comment on above: Order Comment: Speci men Type: BLOOD SPECIMENOrdering Facility: [facility] Address: [address] [place] [address] Performed By: #### 5 8410-2 ####[facility] LABIA [id number] [place] [address] [place] MCHC (RBC) [Mass/Vol] 32.7 g/dL Normal 30.5-36.0 [facility] Comment on above: Order Comment: Speci men Type: BLOOD SPECIMENOrdering Facility: [facility] Address: [address] [place] [address] Performed By: #### 5 8410-2 ####[facility] LABCLIA [id number] [place] [address] [place] MCV (RBC) [Entitic vol] 87.1 fL Normal 80.0-100.0 [facility] Comment on above: Order Comment: Speci men Type: BLOOD SPECIMENOrdering Facility: [facility] Address: [address] [place] [address] Performed By: #### 5 8410-2 ####[facility] LABCLIA [id number] [place] [address] [place] Nucleated RBC (Bld) [#/Vol] 10*3/uL Normal <0.01 [facility] Comment on above: Order Comment: Speci men Type: BLOOD SPECIMENOrdering Facility: [facility] Address: [address] [place] [address] Performed By: #### 5 8410-2 ####[facility] [id number] [place] [address] [place] Platelet mean volume (Bld) [Entitic vol] 10.1 fL Normal 9.0-12.7 [facility] Comment on above: Order Comment: Speci men Type: BLOOD SPECIMENOrdering Facility: [facility] Address: [address] [place] [address] Performed By: #### 5 8410-2 ####[facility] [id number] [place] [address] [place] Platelets (Bld) [#/Vol] 287 10*3/uL Normal 150-400 [facility] Comment on above: Order Comment: Speci men Type: BLOOD SPECIMENOrdering Facility: [facility] Address: [address] [place] [address] Performed By: #### 5 8410-2 ####[facility] [id number] [place] [address] [place] RBC (Bld) [#/Vol] 3.09 10*6/uL Low 3.90-5.20 [facility] Comment on above: Order Comment: Speci men Type: BLOOD SPECIMENOrdering Facility: [facility] Address: [address] [place] [address] Performed By: #### 5 8410-2 ####[facility] LABIA [id number] [place] [address] [place] WBC (Bld) [#/Vol] 14.28 10*3/uL High 3.70-11.00 [facility] Comment on above: Order Comment: Speci men Type: BLOOD SPECIMENOrdering Facility: [facility] Address: [address] [place] [address] Performed By: #### 5 8410-2 ####[facility] LABIA [id number] [place] [address] [place] CONSULT PROGon 08-22-2024 CONSULT PROG Normal [facility] Magnesium SerPl-mCncon 08-22 Magnesium [Mass/Vol] 2.1 mg/dL Normal 1.7-2.3 [facility] Comment on above: Order Comment: Speci men Type: BLOOD SPECIMENOrdering Facility: [facility] Address: [address] [place] [address] Performed By: #### 2 4321-2, 2777-1, 67094-9 ####[facility] LABIA [id number] [place] [address] [place] Magnesium [Mass/Vol] 2.7 mg/dL High 1.7-2.3 [facility] Comment on above: Order Comment: Speci men Type: BLOOD SPECIMENOrdering Facility: [facility] Address: [address] [place] [address] Result Comment: Resu lt rechecked. Performed By: #### 2 4321-2, 33990-9, 2777-1, 2571-8 ####[facility] LABIA [id number] [place] [address] [place] Phosphate SerPl-mCncon 08-22 Phosphate [Mass/Vol] 2.0 mg/dL Low 2.7-4.8 [facility] Comment on above: Order Comment: Speci men Type: BLOOD SPECIMENOrdering Facility: [facility] Address: [address] [place] [address] Performed By: #### 2 4321-2, 2777-1, ####[facility] LABCLIA [id number] [address] [address] [place] Phosphate [Mass/Vol] 3.0 mg/dL Normal 2.7-4.8 [facility] Comment on above: Order Comment: Speci men Type: BLOOD SPECIMENOrdering Facility: [facility] Address: [address] [place], [place] [address] Performed By: #### 2 4321-2, 00533-5, 27701-02, 2571-02 ####[facility] LABCLIA [id number] [address] [address] [facility] [place] THERAPY NTon 08-22-2024 THERAPY NT Normal [facility] THERAPY NT Normal [facility] Trigl SerPl-mCncon Triglyceride [Mass/Vol] 134 mg/dL Normal <150 [facility] Comment on above: Order Comment: Speci men Type: BLOOD SPECIMENOrdering Facility: [facility] Address: [address] [place], [place] [address] Result Comment: <150 mg/dL, Normal 150-199 mg/dL, Borderline high 200-499 mg/dL, High>499 mg/dL, Very highReference:1. National Cholesterol Education Program ATP III Guideline At-A-Glance Quick Desk Reference: National Heart, Lung, and Blood [place]. National Institutes of Health. 2001: NIH Publication No. 01-3305. Performed By: #### 2 4321-2, 28540-3, 27701-02, 2571-02 ####[facility] LABCLIA [id number] [address] [address] [place] Triglyceride [Mass/Vol]on FASTING TIME 8 hrs Normal [facility] Comment on above: Order Comment: Speci men Type: BLOOD SPECIMENOrdering Facility: [facility] Address: [address] [place], [place] [address] Performed By: #### 2 4321-2, 84133-8, 2776-, 2571-02 ####[facility] LABCLIA [id number] [address] [address] [place] ALLIED HEALTHon 08-21-2024 ALLIED HEALTH Normal [facility] Basic metabolic 2000 panelon 08-21-2024 Anion gap [Moles/Vol] 11 mmol/L Normal 8-15 [facility] Comment on above: Order Comment: Speci men Type: BLOOD SPECIMENOrdering Facility: [facility] Address: [address] [place], [place] [address] Performed By: #### 1 988-5, 87423-9, 22563-0, 80269-0 ####[facility] LABCLIA [id number] [place] [id number] [place] Calcium [Mass/Vol] 8.7 mg/dL Normal 8.5-10.2 [facility] Comment on above: Order Comment: Speci men Type: BLOOD SPECIMENOrdering Facility: [facility] Address: [address] [place] [address] Performed By: #### 1 988-5, 46109-7, 78428-8, 40686-4 ####[facility] LABIA [id number] [place] [id number] [place] Chloride [Moles/Vol] 93 mmol/L Low 98-107 [facility] Comment on above: Order Comment: Speci men Type: BLOOD SPECIMENOrdering Facility: [facility] Address: [address] [place], [place] [address] Performed By: #### 1 988-5, 96677-4, 92961-5, 68992-0 ####[facility] LABIA [id number] [place] [id number] [place] CO2 [Moles/Vol] 28 mmol/L Normal 22-30 [facility] Comment on above: Order Comment: Speci men Type: BLOOD SPECIMENOrdering Facility: [facility] Address: [address] [place] [address] Performed By: #### 1 988-5, 21801-4, 53632-9, 74713-1 ####[facility] LABIA [id number] [place] [id number] [place] Creatinine [Mass/Vol] 0.49 mg/dL Low 0.58-0.96 [facility] Comment on above: Order Comment: Elfego men Type: BLOOD SPECIMENOrdering Facility: [facility] Address: [address] [place] [address] Performed By: #### 1 988-5, 31139-3, 52172-9, 07521-3 ####[facility] [id number] [place] [address] [place] Creatinine and Glomerular filtration rate.predicted panel (S/P/Bld) 125 mL/min/1.73m??? Normal >=60 [facility] Comment on above: Order Comment: Elfego pollock Type: BLOOD SPECIMENOrdering Facility: [facility] Address: [address] [place] [address] Result Comment: Desiree mated Glomerular Filtration Rate (eGFR) is calculated using the 2020 CKD-EPI creatinine equation. This equation utilizes serum creatinine, sex, and age as parameters. The creatinine assay has traceable calibration to isotope dilution-mass spectrometry. Refer to KDIGO guidelines for clinical interpretation. In patients with unstable renal function, e.g. those with acute kidney injury, the eGFR may not accurately reflect actual GFR. Performed By: #### 1 988-5, 19219-0, 07522-8, 40443-6 ####[facility] [id number] [address] [address] [place] Glucose [Mass/Vol] 93 mg/dL Normal 74-99 [facility] Comment on above: Order Comment: Elfego pollock Type: BLOOD SPECIMENOrdering Facility: [facility] Address: [address] [place] [address] Result Comment: The [place] Diabetes Association (ADA) provides guidance for cutoff values for fasting glucose and random glucose. The ADA defines fasting as no caloric intake for at least 8 hours. Fasting plasma glucose results between 100 to 125 mg/dL indicate increased risk for diabetes (prediabetes).Fasting plasma glucose results greater than or equal to 126 mg/dL meet the criteria for diagnosis of diabetes. In the absence of unequivocal hyperglycemia, results should be confirmed by repeat testing. In a patient with classic symptoms of hyperglycemia or hyperglycemic crisis, random plasma glucose results greater than or equal to 200 mg/dL meet the criteria for diagnosis of diabetes.Reference: Standards of Medical Care in Diabetes 2016, [place] Diabetes Association. Diabetes Care. 2016.39(Suppl 1). Performed By: #### 1 988-5, 32488-4, 56813-5, 46769-0 ####[facility] LABCLIA [id number] [place] [address] [place] Potassium [Moles/Vol] 2.9 mmol/L Low 3.7-5.1 [facility] Comment on above: Order Comment: Speci men Type: BLOOD SPECIMENOrdering Facility: [facility] Address: [address] [place] [address] Performed By: #### 1 988-5, 96518-8, 42208-6, 02791-6 ####[facility] LABIA [id number] [place] [address] [place] Sodium [Moles/Vol] 132 mmol/L Low 136-144 [facility] Comment on above: Order Comment: Speci men Type: BLOOD SPECIMENOrdering Facility: [facility] Address: [address] [place] [address] Performed By: #### 1 988-5, 25882-9, 99000-0, 14522-3 ####[facility] LABIA [id number] [place] [address] [place] Urea nitrogen [Mass/Vol] 10 mg/dL Normal 7-21 [facility] Comment on above: Order Comment: Speci men Type: BLOOD SPECIMENOrdering Facility: [facility] Address: [address] [place] [address] Performed By: #### 1 988-5, 70679-0, 49689-9, 20204-3 ####[facility] LABCLIA [id number] [place] [address] [place] CASE MANAGEMon 08-21-2024 CASE MANAGEM Normal [facility] CASE MGT INIT ASSESon 2024 CASE MGT INIT ASSES Normal [facility] CBC panel Auto (Bld)on 08-21 Erythrocyte distribution width (RBC) [Ratio] 13.7 % Normal 11.5-15.0 [facility] Comment on above: Order Comment: Speci men Type: BLOOD SPECIMENOrdering Facility: [facility] Address: [address] [place] [address] Performed By: #### 5 8410-2 ####[facility] LABCLIA [id number] [place] [address] [place] Hematocrit (Bld) [Volume fraction] 27.8 % Low 36.0-46.0 [facility] Comment on above: Order Comment: Speci men Type: BLOOD SPECIMENOrdering Facility: [facility] Address: [address] [place] [address] Performed By: #### 5 8410-2 ####[facility] LABCLIA [id number] [place] [address] [place] Hemoglobin (Bld) [Mass/Vol] 9.2 g/dL Low 11.5-15.5 [facility] Comment on above: Order Comment: Speci men Type: BLOOD SPECIMENOrdering Facility: [facility] Address: [address] [place] [address] Performed By: #### 5 8410-2 ####[facility] LABCLIA [id number] [place] [address] [place] MCH (RBC) [Entitic mass] 28.5 pg Normal 26.0-34.0 [facility] Comment on above: Order Comment: Speci men Type: BLOOD SPECIMENOrdering Facility: [facility] Address: [address] [place] [address] Performed By: #### 5 8410-2 ####[facility] LABIA [id number] [place] [address] [place] MCHC (RBC) [Mass/Vol] 33.1 g/dL Normal 30.5-36.0 [facility] Comment on above: Order Comment: Speci men Type: BLOOD SPECIMENOrdering Facility: [facility] Address: [address] [place] [address] Performed By: #### 5 8410-2 ####[facility] LABIA [id number] [place] [address] [place] MCV (RBC) [Entitic vol] 86.1 fL Normal 80.0-100.0 [facility] Comment on above: Order Comment: Speci men Type: BLOOD SPECIMENOrdering Facility: [facility] Address: [address] [place] [address] Performed By: #### 5 8410-2 ####[facility] LABIA [id number] [place] [address] [place] Nucleated RBC (Bld) [#/Vol] 10*3/uL Normal <0.01 [facility] Comment on above: Order Comment: Speci men Type: BLOOD SPECIMENOrdering Facility: [facility] Address: [address] [place] [address] Performed By: #### 5 8410-2 ####[facility] LABIA [id number] [place] [address] [place] Platelet mean volume (Bld) [Entitic vol] 10.2 fL Normal 9.0-12.7 [facility] Comment on above: Order Comment: Speci men Type: BLOOD SPECIMENOrdering Facility: [facility] Address: [address] [place] [address] Performed By: #### 5 8410-2 ####[facility] LABCLIA [id number] [address] [address] [place] Platelets (Bld) [#/Vol] 279 10*3/uL Normal 150-400 [facility] Comment on above: Order Comment: Speci men Type: BLOOD SPECIMENOrdering Facility: [facility] Address: [address] [place] [address] Performed By: #### 5 8410-2 ####[facility] LABIA [id number] [place] [address] [place] RBC (Bld) [#/Vol] 3.23 10*6/uL Low 3.90-5.20 [facility] Comment on above: Order Comment: Speci men Type: BLOOD SPECIMENOrdering Facility: [facility] Address: [address] [place] [address] Performed By: #### 5 8410-2 ####[facility] LABIA [id number] [place] [address] [place] WBC (Bld) [#/Vol] 14.98 10*3/uL High 3.70-11.00 [facility] Comment on above: Order Comment: Speci men Type: BLOOD SPECIMENOrdering Facility: [facility] Address: [address] [place] [address] Performed By: #### 5 8410-2 ####[facility] [id number] [place] [address] [place] CONSULTon 08-21-2024 CONSULT Normal [facility] CONSULT PROGon 08-21-2024 CONSULT PROG Normal [facility] CONSULT PROG Normal [facility] CRP SerPl-mCncon 08-21-2024 CRP [Mass/Vol] 28.8 mg/dL High <0.9 [facility] Comment on above: Order Comment: Speci men Type: BLOOD SPECIMENOrdering Facility: [facility] Address: [address] [place] [address] Performed By: #### 1 988-5, 28365-1, 90852-7, 37422-6 ####[facility] LABCLIA [id number] [address] [address] [place] Hepatic function 2000 panelo n 08-21-2024 Albumin [Mass/Vol] 2.9 g/dL Low 3.9-4.9 [facility] Comment on above: Order Comment: Speci men Type: BLOOD SPECIMENOrdering Facility: [facility] Address: [address] [place] [address] Performed By: #### 1 988-5, 65416-6, 57181-8, 43497-0 ####[facility] LABCLIA [id number] [place] [address] [place] ALP [Catalytic activity/Vol] 82 U/L Normal 34-123 [facility] Comment on above: Order Comment: Speci men Type: BLOOD SPECIMENOrdering Facility: [facility] Address: [address] [place] [address] Performed By: #### 1 988-5, 40788-0, 72458-2, 62909-8 ####[facility]IA [id number] [place] [address] [place] ALT [Catalytic activity/Vol] 11 U/L Normal 7-38 [facility] Comment on above: Order Comment: Speci men Type: BLOOD SPECIMENOrdering Facility: [facility] Address: [address] [place] [address] Performed By: #### 1 988-5, 48942-7, 05729-3, 84166-8 ####[facility] LABIA [id number] [place] [address] [place] AST [Catalytic activity/Vol] 12 U/L Low 13-35 [facility] Comment on above: Order Comment: Speci men Type: BLOOD SPECIMENOrdering Facility: [facility] Address: [address] [place], [place] [address] Performed By: #### 1 988-5, 05886-4, 03934-7, 78996-4 ####[facility] LABCLIA [id number] [place] [address] [place] Bilirubin [Mass/Vol] 0.3 mg/dL Normal 0.2-1.3 [facility] Comment on above: Order Comment: Speci men Type: BLOOD SPECIMENOrdering Facility: [facility] Address: [address] [place] [address] Performed By: #### 1 988-5, 11266-6, 25867-6, 52137-3 ####[facility] LABIA [id number] [place] [address] [place] Bilirubin.conjugated [Mass/Vol] 0.1 mg/dL Normal <0.3 [facility] Comment on above: Order Comment: Speci men Type: BLOOD SPECIMENOrdering Facility: [facility] Address: [address] [place] [address] Performed By: #### 1 988-5, 83124-0, 76374-3, 15756-0 ####[facility] LABIA [id number] [place] [address] [place] Protein [Mass/Vol] 5.8 g/dL Low 6.3-8.0 [facility] Comment on above: Order Comment: Speci men Type: BLOOD SPECIMENOrdering Facility: [facility] Address: [address] [place] [address] Performed By: #### 1 988-5, 04166-5, 91721-4, 09122-5 ####[facility] LABIA [id number] [place] [address] [place] Magnesium SerPl-mCncon 08-21 Magnesium [Mass/Vol] 1.6 mg/dL Low 1.7-2.3 [facility] Comment on above: Order Comment: Speci men Type: BLOOD SPECIMENOrdering Facility: [facility] Address: [address] [place] [address] Performed By: #### 1 988-5, 81095-9, 35210-7, 34420-3 ####[facility] LABCLIA [id number] [address] [address] [place] PT EDon 08-21-2024 PT ED Normal [facility] Phosphate SerPl-mCncon 08-21 Phosphate [Mass/Vol] 2.1 mg/dL Low 2.7-4.[address] [facility] Comment on above: Order Comment: Speci men Type: BLOOD SPECIMENOrdering Facility: [facility] Address: [address] [place] [address] Performed By: #### 2 777-1 ####[facility] LABCLIA [id number] [place] [address] [place] US ARM VEIN DVT UNL VAS LABo n 08-21-2024 US ARM VEIN DVT UNL VAS LAB Normal [facility] ALLIED HEALTHon 08-20-2024 ALLIED HEALTH Normal [facility] CONSULT PROGon 08-20-2024 CONSULT PROG Normal [facility] NURSING PROGon 08-20-2024 NURSING PROG Normal [facility] ALLIED HEALTHon 08-19-2024 ALLIED HEALTH Normal [facility] Basic metabolic 2000 panelon 08-19-2024 Anion gap [Moles/Vol] 15 mmol/L Normal 8-15 [facility] Comment on above: Order Comment: Speci men Type: BLOOD SPECIMENOrdering Facility: [facility] Address: [address] [place] [address] Performed By: #### 2 777-1, 61342-9, 02694-3 ####[facility] LABCLIA [id number] [place] [id number] [place] Calcium [Mass/Vol] 8.6 mg/dL Normal 8.5-10.2 [facility] Comment on above: Order Comment: Speci men Type: BLOOD SPECIMENOrdering Facility: [facility] Address: [address] [place] [address] Performed By: #### 2 777-1, 37391-5, ####[facility] LABCLIA [id number] [place] [address] [place] Chloride [Moles/Vol] 101 mmol/L Normal 98-107 [facility] Comment on above: Order Comment: Speci men Type: BLOOD SPECIMENOrdering Facility: [facility] Address: [address] [place] [address] Performed By: #### 2 777-1, 18944-1, ####[facility] LABCLIA [id number] [place] [address] [place] CO2 [Moles/Vol] 19 mmol/L Low 22-30 [facility] Comment on above: Order Comment: Speci men Type: BLOOD SPECIMENOrdering Facility: [facility] Address: [address] [place] [address] Performed By: #### 2 777-1, 64015-2, ####[facility] LABCLIA [id number] [place] [address] [place] Creatinine [Mass/Vol] 0.49 mg/dL Low 0.58-0.96 [facility] Comment on above: Order Comment: Speci men Type: BLOOD SPECIMENOrdering Facility: [facility] Address: [address] [place] [address] Performed By: #### 2 777-1, 90822-8, ####[facility] LABIA [id number] [place] [address] [place] Creatinine and Glomerular filtration rate.predicted panel (S/P/Bld) 125 mL/min/1.73m??? Normal >=60 [facility] Comment on above: Order Comment: Speci men Type: BLOOD SPECIMENOrdering Facility: [facility] Address: [address] [place] [address] Result Comment: Desiree mated Glomerular Filtration Rate (eGFR) is calculated using the 2020 CKD-EPI creatinine equation. This equation utilizes serum creatinine, sex, and age as parameters. The creatinine assay has traceable calibration to isotope dilution-mass spectrometry. Refer to KDIGO guidelines for clinical interpretation. In patients with unstable renal function, e.g. those with acute kidney injury, the eGFR may not accurately reflect actual GFR. Performed By: #### 2 777-1, 72716-8, ####[facility] LABCLIA [id number] [place] [id number] [place] Glucose [Mass/Vol] 78 mg/dL Normal 74-99 [facility] Comment on above: Order Comment: Elfego pollock Type: BLOOD SPECIMENOrdering Facility: [facility] Address: [address] [place] [address] Result Comment: The [place] [employer] (ADA) provides guidance for cutoff values for fasting glucose and random glucose. The ADA defines fasting as no caloric intake for at least 8 hours. Fasting plasma glucose results between 100 to 125 mg/dL indicate increased risk for diabetes (prediabetes).Fasting plasma glucose results greater than or equal to 126 mg/dL meet the criteria for diagnosis of diabetes. In the absence of unequivocal hyperglycemia, results should be confirmed by repeat testing. In a patient with classic symptoms of hyperglycemia or hyperglycemic crisis, random plasma glucose results greater than or equal to 200 mg/dL meet the criteria for diagnosis of diabetes.Reference: Standards of Medical Care in Diabetes 2016, [place] [employer]. Diabetes Care. 2016.39(Suppl 1). Performed By: #### 2 777-1, 19824-2, ####[facility] LABIA [id number] [address] [address] [place] Potassium [Moles/Vol] 4.3 mmol/L Normal 3.7-5.1 [facility] Comment on above: Order Comment: Elfego pollock Type: BLOOD SPECIMENOrdering Facility: [facility] Address: [address] [place] [id number] Performed By: #### 2 777-1, 51223-6, ####[facility] LABCLIA [id number] [place] [id number] [place] Sodium [Moles/Vol] 135 mmol/L Low 136-144 [facility] Comment on above: Order Comment: Speci men Type: BLOOD SPECIMENOrdering Facility: [facility] Address: [address] [place] [address] Performed By: #### 2 777-1, 59272-8, ####[facility] LABIA [id number] [place] [address] [place] Urea nitrogen [Mass/Vol] 7 mg/dL Normal 7-21 [facility] Comment on above: Order Comment: Speci men Type: BLOOD SPECIMENOrdering Facility: [facility] Address: [address] [place] [address] Performed By: #### 2 777-1, 97482-5, ####[facility] LABIA [id number] [place] [address] [place] CBC panel Auto (Bld)on 08-19 Erythrocyte distribution width (RBC) [Ratio] 14.3 % Normal 11.5-15.0 [facility] Comment on above: Order Comment: Speci men Type: BLOOD SPECIMENOrdering Facility: [facility] Address: [address] [place] [address] Performed By: #### 5 8410-2 ####[facility] LABIA [id number] [place] [address] [place] Hematocrit (Bld) [Volume fraction] 34.7 % Low 36.0-46.0 [facility] Comment on above: Order Comment: Speci men Type: BLOOD SPECIMENOrdering Facility: [facility] Address: [address] [place] [address] Performed By: #### 5 8410-2 ####[facility] LABIA [id number] [place] [address] [place] Hemoglobin (Bld) [Mass/Vol] 10.4 g/dL Low 11.5-15.5 [facility] Comment on above: Order Comment: Speci men Type: BLOOD SPECIMENOrdering Facility: [facility] Address: [address] [place] [address] Performed By: #### 5 8410-2 ####[facility] LABIA [id number] [place] [address] [place] MCH (RBC) [Entitic mass] 28.6 pg Normal 26.0-34.0 [facility] Comment on above: Order Comment: Speci men Type: BLOOD SPECIMENOrdering Facility: [facility] Address: [address] [place] [address] Performed By: #### 5 8410-2 ####[facility] LABIA [id number] [place] [address] [place] MCHC (RBC) [Mass/Vol] 30.0 g/dL Low 30.5-36.0 [facility] Comment on above: Order Comment: Speci men Type: BLOOD SPECIMENOrdering Facility: [facility] Address: [address] [place] [address] Performed By: #### 5 8410-2 ####[facility] LABIA [id number] [place] [address] [place] MCV (RBC) [Entitic vol] 95.3 fL Normal 80.0-100.0 [facility] Comment on above: Order Comment: Speci men Type: BLOOD SPECIMENOrdering Facility: [facility] Address: [address] [place] [address] Performed By: #### 5 8410-2 ####[facility] LABIA [id number] [place] [address] [place] Nucleated RBC (Bld) [#/Vol] 10*3/uL Normal <0.01 [facility] Comment on above: Order Comment: Speci men Type: BLOOD SPECIMENOrdering Facility: [facility] Address: [address] [place] [address] Performed By: #### 5 8410-2 ####[facility] LABCLIA [id number] [place] [address] [place] Platelet mean volume (Bld) [Entitic vol] 10.4 fL Normal 9.0-12.7 [facility] Comment on above: Order Comment: Speci men Type: BLOOD SPECIMENOrdering Facility: [facility] Address: [address] [place] [address] Performed By: #### 5 8410-2 ####[facility] LABCLIA [id number] [place] [address] [place] Platelets (Bld) [#/Vol] 254 10*3/uL Normal 150-400 [facility] Comment on above: Order Comment: Speci men Type: BLOOD SPECIMENOrdering Facility: [facility] Address: [address] [place] [address] Performed By: #### 5 8410-2 ####[facility] LABIA [id number] [place] [address] [place] RBC (Bld) [#/Vol] 3.64 10*6/uL Low 3.90-5.20 [facility] Comment on above: Order Comment: Speci men Type: BLOOD SPECIMENOrdering Facility: [facility] Address: [address] [place] [address] Performed By: #### 5 8410-2 ####[facility]IA [id number] [place] [address] [place] WBC (Bld) [#/Vol] 10.36 10*3/uL Normal 3.70-11.00 [facility] Comment on above: Order Comment: Speci men Type: BLOOD SPECIMENOrdering Facility: [facility] Address: [address] [place], [place] [address] Performed By: #### 5 8410-2 ####[facility] LABCLIA [id number] [place] [address] [place] CONSULTon 08-19-2024 CONSULT Normal [facility] CONSULT PROGon 08-19-2024 CONSULT PROG Normal [facility] Magnesium SerPl-mCncon 08-19 Magnesium [Mass/Vol] 1.3 mg/dL Low 1.7-2.3 [facility] Comment on above: Order Comment: Speci men Type: BLOOD SPECIMENOrdering Facility: [facility] Address: [address] [place] [address] Performed By: #### 2 777-1, 58300-8, ####[facility] LABCLIA [id number] [place] [address] [place] NURSING PROGon 08-19-2024 NURSING PROG Normal [facility] Phosphate SerPl-mCncon 08-19 Phosphate [Mass/Vol] 3.7 mg/dL Normal 2.7-4.8 [facility] Comment on above: Order Comment: Speci men Type: BLOOD SPECIMENOrdering Facility: [facility] Address: [address] [place] [address] Performed By: #### 2 777-1, 78070-1, ####[facility] LABIA [id number] [place] [id number] [place] ANES POSTPROC EVALon 025 ANES POSTPROC EVAL Normal [facility] ANES PRE-OPon 08-18-2024 ANES PRE-OP Normal [facility] Bacteria Bld Culton 08-18-19 25 Bacteria identified Cx Nom (Bld) CULTURE, BLOOD: No growth 5 days Normal [facility] Comment on above: Performed By: #### 6 00-7 ####[facility] LABCLIA [id number] [address] [address] [place] Basic metabolic 2000 panelon 08-18-2024 Anion gap [Moles/Vol] 10 mmol/L Normal 8-15 [facility] Comment on above: Order Comment: Speci men Type: BLOOD SPECIMENOrdering Facility: [facility] Address: [address] [place] [address] Performed By: #### 2 4321-2 ####[facility] LABCLIA [id number] [place] [address] [place] Calcium [Mass/Vol] 8.5 mg/dL Normal 8.5-10.2 [facility] Comment on above: Order Comment: Speci men Type: BLOOD SPECIMENOrdering Facility: [facility] Address: [address] [place] [address] Performed By: #### 2 4321-2 ####[facility] LABCLIA [id number] [place] [address] [place] Chloride [Moles/Vol] 103 mmol/L Normal 98-107 [facility] Comment on above: Order Comment: Speci men Type: BLOOD SPECIMENOrdering Facility: [facility] Address: [address] [place] [address] Performed By: #### 2 4321-2 ####[facility] LABCLIA [id number] [place] [address] [place] CO2 [Moles/Vol] 27 mmol/L Normal 22-30 [facility] Comment on above: Order Comment: Speci men Type: BLOOD SPECIMENOrdering Facility: [facility] Address: [address] [place] [address] Performed By: #### 2 4321-2 ####[facility] LABCLIA [id number] [place] [id number] [place] Creatinine [Mass/Vol] 0.56 mg/dL Low 0.58-0.96 [facility] Comment on above: Order Comment: Elfego pollock Type: BLOOD SPECIMENOrdering Facility: [facility] Address: [address] [place] [address] Performed By: #### 2 4321-2 ####[facility] LABCLIA [id number] [place] [address] [place] Creatinine and Glomerular filtration rate.predicted panel (S/P/Bld) 121 mL/min/1.73m??? Normal >=60 [facility] Comment on above: Order Comment: Elfego pollock Type: BLOOD SPECIMENOrdering Facility: [facility] Address: [address] [place] [address] Result Comment: Desiree mated Glomerular Filtration Rate (eGFR) is calculated using the 2020 CKD-EPI creatinine equation. This equation utilizes serum creatinine, sex, and age as parameters. The creatinine assay has traceable calibration to isotope dilution-mass spectrometry. Refer to KDIGO guidelines for clinical interpretation. In patients with unstable renal function, e.g. those with acute kidney injury, the eGFR may not accurately reflect actual GFR. Performed By: #### 2 4321-2 ####[facility] LABCLIA [id number] [place] [address] [place] Glucose [Mass/Vol] 84 mg/dL Normal 74-99 [facility] Comment on above: Order Comment: Elfego pollock Type: BLOOD SPECIMENOrdering Facility: [facility] Address: [address] [place] [address] Result Comment: The [place] Diabetes Association (ADA) provides guidance for cutoff values for fasting glucose and random glucose. The ADA defines fasting as no caloric intake for at least 8 hours. Fasting plasma glucose results between 100 to 125 mg/dL indicate increased risk for diabetes (prediabetes).Fasting plasma glucose results greater than or equal to 126 mg/dL meet the criteria for diagnosis of diabetes. In the absence of unequivocal hyperglycemia, results should be confirmed by repeat testing. In a patient with classic symptoms of hyperglycemia or hyperglycemic crisis, random plasma glucose results greater than or equal to 200 mg/dL meet the criteria for diagnosis of diabetes.Reference: Standards of Medical Care in Diabetes 2016, [place] [employer]. Diabetes Care. 2016.39(Suppl 1). Performed By: #### 2 4321-2 ####[facility] LABCLIA [id number] [place] [address] [place] Potassium [Moles/Vol] 3.7 mmol/L Normal 3.7-5.1 [facility] Comment on above: Order Comment: Speci men Type: BLOOD SPECIMENOrdering Facility: [facility] Address: [address] [place] [address] Performed By: #### 2 4321-2 ####[facility]CLIA [id number] [place] [address] [place] Sodium [Moles/Vol] 140 mmol/L Normal 136-144 [facility] Comment on above: Order Comment: Speci men Type: BLOOD SPECIMENOrdering Facility: [facility] Address: [address] [place] [address] Performed By: #### 2 4321-2 ####[facility]CLIA [id number] [place] [address] [place] Urea nitrogen [Mass/Vol] 10 mg/dL Normal 7-21 [facility] Comment on above: Order Comment: Speci men Type: BLOOD SPECIMENOrdering Facility: [facility] Address: [address] [place] [address] Performed By: #### 2 4321-2 ####[facility] LABCLIA [id number] [place] [id number] [place] CBC panel Auto (Bld)on 08-18 Erythrocyte distribution width (RBC) [Ratio] 14.5 % Normal 11.5-15.0 [facility] Comment on above: Order Comment: Speci men Type: BLOOD SPECIMENOrdering Facility: [facility] Address: [address] [place] [address] Performed By: #### 5 8410-2 ####[facility] LABCLIA [id number] [place] [address] [place] Hematocrit (Bld) [Volume fraction] 29.6 % Low 36.0-46.0 [facility] Comment on above: Order Comment: Speci men Type: BLOOD SPECIMENOrdering Facility: [facility] Address: [address] [place] [address] Performed By: #### 5 8410-2 ####[facility]IA [id number] [place] [address] [place] Hemoglobin (Bld) [Mass/Vol] 9.6 g/dL Low 11.5-15.5 [facility] Comment on above: Order Comment: Speci men Type: BLOOD SPECIMENOrdering Facility: [facility] Address: [address] [place] [address] Performed By: #### 5 8410-2 ####[facility]IA [id number] [place] [address] [place] MCH (RBC) [Entitic mass] 28.4 pg Normal 26.0-34.0 [facility] Comment on above: Order Comment: Speci men Type: BLOOD SPECIMENOrdering Facility: [facility] Address: [address] [place] [address] Performed By: #### 5 8410-2 ####[facility]IA [id number] [place] [address] [place] MCHC (RBC) [Mass/Vol] 32.4 g/dL Normal 30.5-36.0 [facility] Comment on above: Order Comment: Speci men Type: BLOOD SPECIMENOrdering Facility: [facility] Address: [address] [place] [address] Performed By: #### 5 8410-2 ####[facility] LABCLIA [id number] [place] [address] [place] MCV (RBC) [Entitic vol] 87.6 fL Normal 80.0-100.0 [facility] Comment on above: Order Comment: Speci men Type: BLOOD SPECIMENOrdering Facility: [facility] Address: [address] [place] [address] Performed By: #### 5 8410-2 ####[facility] LABCLIA [id number] [place] [address] [place] Nucleated RBC (Bld) [#/Vol] 10*3/uL Normal <0.01 [facility] Comment on above: Order Comment: Speci men Type: BLOOD SPECIMENOrdering Facility: [facility] Address: [address] [place] [address] Performed By: #### 5 8410-2 ####[facility]IA [id number] [place] [address] [place] Platelet mean volume (Bld) [Entitic vol] 10.3 fL Normal 9.0-12.7 [facility] Comment on above: Order Comment: Speci men Type: BLOOD SPECIMENOrdering Facility: [facility] Address: [address] [place] [address] Performed By: #### 5 8410-2 ####[facility] LABIA [id number] [place] [address] [place] Platelets (Bld) [#/Vol] 274 10*3/uL Normal 150-400 [facility] Comment on above: Order Comment: Speci men Type: BLOOD SPECIMENOrdering Facility: [facility] Address: [address] [place] [address] Performed By: #### 5 8410-2 ####[facility] LABIA [id number] [place] [address] [place] RBC (Bld) [#/Vol] 3.38 10*6/uL Low 3.90-5.20 [facility] Comment on above: Order Comment: Speci men Type: BLOOD SPECIMENOrdering Facility: [facility] Address: [address] [place] [address] Performed By: #### 5 8410-2 ####[facility] LABCLIA [id number] [place] [address] [place] WBC (Bld) [#/Vol] 6.27 10*3/uL Normal 3.70-11.00 [facility] Comment on above: Order Comment: Speci men Type: BLOOD SPECIMENOrdering Facility: [facility] Address: [address] [place] [address] Performed By: #### 5 8410-2 ####[facility] LABIA [id number] [place] [address] [place] CONSULTon 08-18-2024 CONSULT Normal [facility] CONSULT PROGon 08-18-2024 CONSULT PROG Normal [facility] CONSULT PROG Normal [facility] OPERATIVE NOon 08-18-2024 OPERATIVE NO Normal [facility] Pathology biopsy report Eliu (Tiss)on 08-18-2024 ADDENDUM 1: Normal [facility] Comment on above: Order Comment: Speci men Type: TISSUE SPECIMENOrdering Facility: [facility] Address: [address] [place] [address] Result Comment: AFB and GMS stains performed on blocks A13 and A16 are negative for acid fast bacteria and fungal organisms, respectively. All controls are adequate.Addendum electronically signed by Karoline Dukes MD on 08/29/2024 at 1309 EST Performed By: #### 6 6121-5 ####[facility] LABIA [id number] [place] [address] [place] CASE REPORT Normal [facility] Comment on above: Order Comment: Speci men Type: TISSUE SPECIMENOrdering Facility: [facility] Address: [address] [place] [address] Result Comment: Surg ical Pathology Report Case: [id number] Provider: Elsy Rousseau DO Collected: 08/18/2024 02:46 PMOrdering Location: Admitting Received: 08/18/2024 05:47 PMPathologist: Karoline Dukes MDSpecimen: Colon and Small Bowel, Right Hemicolectomy, distal small bowel and part of ascending colon Performed By: #### 6 6121-5 ####[facility] LABCLIA [id number] [facility] [address] [place] [address] [place] CLINICAL HISTORY Normal [facility] Comment on above: Order Comment: Speci men Type: TISSUE SPECIMENOrdering Facility: [facility] Address: [address] [place] [address] Result Comment: Pre- op diagnosis:Crohn's disease (HCC) [K50.90] Performed By: #### 6 6121-5 ####[facility] LABCLIA [id number] [address] [place] [address] [facility] DIAGNOSIS COMMENT Normal [facility] Comment on above: Order Comment: Speci men Type: TISSUE SPECIMENOrdering Facility: [facility] Address: [address] [place] [address] Performed By: #### 6 6121-5 ####[facility] LABCLIA [id number] [address] [place] [address] [facility] FINAL DIAGNOSIS Normal [facility] Comment on above: Order Comment: Speci men Type: TISSUE SPECIMENOrdering Facility: [facility] Address: [address] [place] [address] Result Comment: Dist al small bowel and part of ascending colon, right hemicolectomy:- Chronic active colitis with ulcer, extensive pyloric gland metaplasia, granulomas and transmural lymphoid aggregates, negative for dysplasia. See comment.- One lymph node, negative for neoplasm (0/1). at 1151 EST Performed By: #### 6 6121-5 ####[facility] LABCLIA [id number] [address] [place] [address] [facility] [place] FINAL PERFORMING LAB Normal [facility] Comment on above: Order Comment: Speci men Type: TISSUE SPECIMENOrdering Facility: [facility] Address: [address] [place] [address] Result Comment: Diag nostic interpretation performed at: [facility], [address] [facility] [place] [address] CLIA# [id number] Director: Rikki Hendrickson MD Performed By: #### 6 6121-5 ####[facility] LABCLIA [id number] [facility] [place] [address] [place] GROSS DESCRIPTION Normal [facility] Comment on above: Order Comment: Speci men Type: TISSUE SPECIMENOrdering Facility: [facility] Address: [address] [place] [address] Result Comment: A. C olon and Small Bowel, Right HemicolectomyReceived in formalin labeled as colon and small bowel, right hemicolectomy, distal small bowel and part of ascending colon is 50 cm in length x 1.1-4 cm in circumference segment of small bowel anastomosed to a 2 cm in length x 3 cm in circumference segment of colon. The anastomotic site is intact, without exudate or fistula tract. The small bowel mesenteric fat is thickened and extends up to 4 cm from the bowel wall. The serosal surface of the small bowel contains multiple adhesions. Fat wrapping is identified most prominently at the proximal aspect of the small bowel. On opening, the bowel does not lie flat and the small intestinal mucosa is erythematous with a patchy cobblestoned appearance and loss of the usual intestinal folds. A stricture is present within the small bowel located 4 cm from the proximal resection margin and 40 cm from the distal resection margin. In this area, the internal circumference is 1.5 cm and the wall thickness is 1 cm. Proximal to this area the internal circumference is 3 cm with a wall thickness of 0.4 cm. Sectioning through the stricture reveals intact bowel wall layers without evidence of a mass lesion. Second stricture is identified located 5 cm proximal to the first stricture , internal circumference is 1.2 cm and the wall thickness is 0.9 cm, sectioning through the strictured reveals intact bowel wall layers without evidence of a mass lesion. Third stricture is identified 3 cm proximal to the second stricture, internal circumference at this area is 1.3 cm and the wall thickness is 1 cm, sectioning through the stricture reveals intact bowel wall layers without evidence of mass lesion. Fourth stricture is identified 2 cm proximal to the third stricture, the internal circumference is 1.1 and the wall thickness is 1 cm, sectioning through the stricture reveals intact bowel wall layers without evidence of a mass lesion.The colonic mucosa is gutierrez with the usual mucosal folds. The proximal resection margin is inked blue and the distal resection margin is inked greenRepresentative sections are submitted as follows:[employer] Drafter sections from distal to proximal as follows:A1- proximal and distal margins, perpendicularA2- communications representative sections of the colonA3- anastomotic siteA4-A6- fourth stricture, communications representative sectionsA7- area between stricture #4 and stricture #5Y9-Q54- third stricture, communications representative [id number]-qmik between stricture #3 and stricture #7Q76-T35- second stricture, communications representative ihlzkscfB64- area between stricture #2 and stricture #7K23-G87- stricture #1, communications representative [id number]- communications representative section of small bowel 3 cm from the proximal jtrcwfZ50- communications representative lymph nodes Performed By: #### 6 6121-5 ####[facility] LABCLIA [id number] [place] [address] [place] XR ABDOMEN 1V SUPINEon 08-18 XR ABDOMEN 1V SUPINE Normal [facility] CONSULTon 08-17-2024 CONSULT Normal [facility] CT ENTEROGRAPHY W IVCONon CT ENTEROGRAPHY W IVCON Normal [facility] ED NOTEon 08-17-2024 ED NOTE HNO ID: [id number] Author: RENO LOYOLA, RN Service: Emergency Medicine Author Type: Registered Nurse Type: ED Notes Filed: 08/17/2024 10:52 Note Text: Admitting provider at bedside discussing NG tube placement. Pt refusing at this time. Normal [facility] ED NOTE Normal [facility] ED PROV NOTEon 08-17-2024 ED PROV NOTE Normal [facility] HCG Preg Ur Qlon 08-17-2024 HCG ( test) Ql (U) Negative Normal Negative [facility] Comment on above: Order Comment: Speci men Type: URINE SPECIMENOrdering Facility: [facility] Address: [address] [place] [address] Result Comment: This test is intended to aid in the early detection of . Very dilute urine samples, as indicated by a low specific gravity, may not contain communications representative levels of hCG. This test detects intact hCG only. This test does not reliably detect hCG degradation products, including free-beta subunit and beta-core fragment. Therefore, this test may show reduced reactivity in urine after 8 weeks gestation. A number of conditions other than , including trophoblastic disease and certain non-trophoblastic neoplasms cause elevated levels of hCG. As with any assay employing mouse antibodies, the possibility exists for interference by human anti-mouse antibodies (HAMA) in the specimen. The test provides a presumptive diagnosis for . Performed By: #### 2 106-3 ####[facility] LABCLIA [id number] [place] [address] [place] HISTORY PHYSICALon HISTORY PHYSICAL Normal [facility] NURSING PROGon 08-17-2024 NURSING PROG Normal [facility] PT panel Coag (PPP)on 2024 INR Coag (PPP) [Relative time] 1.1 {INR} Normal 0.9-1.3 [facility] Comment on above: Order Comment: Speci men Type: BLOOD SPECIMENOrdering Facility: [facility] Address: [address] [place] [address] Result Comment: Senia min K Antagonist (VKA) Therapeutic Range: INR 2 to 3 (Target INR of 2.5)Note: For patients treated with VKA drugs, such as warfarin, the [employer] 2012 Guideline recommends a therapeutic INR range of 2 to 3 (target INR of 2.5). This recommendation includes high-risk patients with antiphospholipid syndrome with previous arterial or venous thromboembolism, current-generation mechanical or bioprosthetic aortic heart valve replacement.Note: Patients with mechanical aortic valve replacement and additional risk factors for thromboembolic events (atrial fibrillation, previous thromboembolism, LV dysfunction, hypercoagulable conditions) or an older generation mechanical AVR (i.e., ball in-Cage) or any mechanical MVR should have a INR therapeutic range of 2.5 to 3.5 (target INR of 3).Brie FAROOQ, et al. Chest 2012, 141:7S-47SAubrey RA, et al. JACC 2017, 70: 252-289 Performed By: #### 1 4979-9, 33189-7 ####[facility] LABCLIA [id number] [place] [address] [place] PT Coag (PPP) [Time] 11.4 s Normal 9.7-13.[address] [facility] Comment on above: Order Comment: Speci men Type: BLOOD SPECIMENOrdering Facility: [facility] Address: [address] [place] [address] Performed By: #### 1 4979-9, 38405-0 ####[facility] LABCLIA [id number] [place] TYPE + SCREENon 08-17-2024 ABO A Normal [facility] Comment on above: Order Comment: Speci men Type: BLOOD SPECIMENOrdering Facility: [facility] Address: [address] [place] [address] Performed By: #### T SCR ####[facility] BLOOD BANKCLIA [id number] [place] [address] [place] Rh Nom (Bld) Negative Normal [facility] Comment on above: Order Comment: Speci men Type: BLOOD SPECIMENOrdering Facility: [facility] Address: [address] [place] [address] Performed By: #### T SCR ####[facility] BLOOD BANKCLIA [id number] [place] [address] [place] TYPE AND SCREEN EXPIRATION 08/20/2024 23:59 Normal [facility] Comment on above: Order Comment: Speci men Type: BLOOD SPECIMENOrdering Facility: [facility] Address: [facility] [place] [address] Performed By: #### T SCR ####[facility] BLOOD BANKCLIA [id number] [place] [address] [place] aPTT PPPon 08-17-2024 aPTT Coag (PPP) [Time] 27.2 s Normal 23.0-32.4 [facility] Comment on above: Order Comment: Speci men Type: BLOOD SPECIMENOrdering Facility: [facility] Address: [address] [place] [address] Performed By: #### 1 4979-9, 17516-3 ####[facility] LABCLIA [id number] [place] [address] [place] CBC W Auto Differential pane l (Bld)on 08-16-2024 Basophils (Bld) [#/Vol] 0.03 10*3/uL Normal <0.11 [facility] Comment on above: Order Comment: Speci men Type: BLOOD SPECIMENOrdering Facility: [facility] Address: [address] [place] [address] Performed By: #### 4 537-7, 92242-9 ####[facility] LABCLIA [id number] [place] [address] [place] Basophils/100 WBC (Bld) 0.3 % Normal [facility] Comment on above: Order Comment: Speci men Type: BLOOD SPECIMENOrdering Facility: [facility] Address: [address] [place] [address] Performed By: #### 4 537-7, 27004-9 ####[facility] LABCLIA [id number] [place] [address] [place] Differential cell count method Nom (Bld) Auto Normal [facility] Comment on above: Order Comment: Speci men Type: BLOOD SPECIMENOrdering Facility: [facility] Address: [address] [place] [address] Performed By: #### 4 537-7, 11575-4 ####[facility] LABCLIA [id number] [place] [address] [place] Eosinophils (Bld) [#/Vol] 0.18 10*3/uL Normal <0.46 [facility] Comment on above: Order Comment: Speci men Type: BLOOD SPECIMENOrdering Facility: [facility] Address: [address] [place] [address] Performed By: #### 4 537-7, 35753-2 ####[facility] LABCLIA [id number] [place] [address] [place] Eosinophils/100 WBC (Bld) 1.5 % Normal [facility] Comment on above: Order Comment: Speci men Type: BLOOD SPECIMENOrdering Facility: [facility] Address: [address] [place] [address] Performed By: #### 4 537-7, 21363-6 ####[facility] LABCLIA [id number] [place] [address] [place] Erythrocyte distribution width (RBC) [Ratio] 14.7 % Normal 11.5-15.0 [facility] Comment on above: Order Comment: Speci men Type: BLOOD SPECIMENOrdering Facility: [facility] Address: [address] [place] [address] Performed By: #### 4 537-7, 79593-6 ####[facility] LABCLIA [id number] [place] [address] [place] Hematocrit (Bld) [Volume fraction] 34.9 % Low 36.0-46.0 [facility] Comment on above: Order Comment: Speci men Type: BLOOD SPECIMENOrdering Facility: [facility] Address: [address] [place] [address] Performed By: #### 4 537-7, 53569-5 ####[facility] LABCLIA [id number] [place] [address] [place] Hemoglobin (Bld) [Mass/Vol] 11.5 g/dL Normal 11.5-15.5 [facility] Comment on above: Order Comment: Speci men Type: BLOOD SPECIMENOrdering Facility: [facility] Address: [address] [place] [address] Performed By: #### 4 537-7, 45383-0 ####[facility] LABCLIA [id number] [place] [address] [place] Immature granulocytes (Bld) [#/Vol] 0.06 10*3/uL Normal <0.10 [facility] Comment on above: Order Comment: Speci men Type: BLOOD SPECIMENOrdering Facility: [facility] Address: [address] [place] [address] Performed By: #### 4 537-7, 13287-2 ####[facility] LABCLIA [id number] [place] [address] [place] Immature granulocytes/100 WBC (Bld) 0.5 % Normal [facility] Comment on above: Order Comment: Speci men Type: BLOOD SPECIMENOrdering Facility: [facility] Address: [address] [place] [address] Performed By: #### 4 537-7, 67544-9 ####[facility] LABCLIA [id number] [place] [address] [place] Lymphocytes (Bld) [#/Vol] 1.24 10*3/uL Normal 1.00-4.00 [facility] Comment on above: Order Comment: Speci men Type: BLOOD SPECIMENOrdering Facility: [facility] Address: [address] [place] [address] Performed By: #### 4 537-7, 57661-6 ####[facility] LABCLIA [id number] [place] [address] [place] Lymphocytes/100 WBC (Bld) 10.5 % Normal [facility] Comment on above: Order Comment: Speci men Type: BLOOD SPECIMENOrdering Facility: [facility] Address: [address] [place] [address] Performed By: #### 4 537-7, 50303-0 ####[facility] LABCLIA [id number] [place] [address] [place] MCH (RBC) [Entitic mass] 28.8 pg Normal 26.0-34.0 [facility] Comment on above: Order Comment: Speci men Type: BLOOD SPECIMENOrdering Facility: [facility] Address: [address] [place] [address] Performed By: #### 4 537-7, 76102-2 ####[facility] LABIA [id number] [place] [address] [place] MCHC (RBC) [Mass/Vol] 33.0 g/dL Normal 30.5-36.0 [facility] Comment on above: Order Comment: Speci men Type: BLOOD SPECIMENOrdering Facility: [facility] Address: [address] [place] [address] Performed By: #### 4 537-7, 77035-1 ####[facility] LABIA [id number] [place] [address] [place] MCV (RBC) [Entitic vol] 87.5 fL Normal 80.0-100.0 [facility] Comment on above: Order Comment: Speci men Type: BLOOD SPECIMENOrdering Facility: [facility] Address: [address] [place] [address] Performed By: #### 4 537-7, 69793-5 ####[facility] LABIA [id number] [place] [id number] [place] Monocytes (Bld) [#/Vol] 0.96 10*3/uL High <0.87 [facility] Comment on above: Order Comment: Speci men Type: BLOOD SPECIMENOrdering Facility: [facility] Address: [address] [place] [address] Performed By: #### 4 537-7, 50863-1 ####[facility] LABCLIA [id number] [place] [address] [place] Monocytes/100 WBC (Bld) 8.1 % Normal [facility] Comment on above: Order Comment: Speci men Type: BLOOD SPECIMENOrdering Facility: [facility] Address: [address] [place] [address] Performed By: #### 4 537-7, 93173-0 ####[facility] LABCLIA [id number] [place] [address] [place] Neutrophils (Bld) [#/Vol] 9.35 10*3/uL High 1.45-7.50 [facility] Comment on above: Order Comment: Speci men Type: BLOOD SPECIMENOrdering Facility: [facility] Address: [address] [place] [address] Performed By: #### 4 537-7, 94463-2 ####[facility] LABCLIA [id number] [place] [address] [place] Neutrophils/100 WBC (Bld) 79.1 % Normal [facility] Comment on above: Order Comment: Speci men Type: BLOOD SPECIMENOrdering Facility: [facility] Address: [address] [place] [address] Performed By: #### 4 537-7, 85431-7 ####[facility] LABCLIA [id number] [place] [address] [place] Nucleated RBC (Bld) [#/Vol] 10*3/uL Normal <0.01 [facility] Comment on above: Order Comment: Speci men Type: BLOOD SPECIMENOrdering Facility: [facility] Address: [address] [place] [address] Performed By: #### 4 537-7, 60040-9 ####[facility] LABCLIA [id number] [place] [address] [place] Nucleated RBC/100 WBC (Bld) [Ratio] 0.0 /100 WBC Normal [facility] Comment on above: Order Comment: Speci men Type: BLOOD SPECIMENOrdering Facility: [facility] Address: [address] [place] [address] Performed By: #### 4 537-7, 43774-8 ####[facility] LABCLIA [id number] [place] [address] [place] Platelet mean volume (Bld) [Entitic vol] 9.9 fL Normal 9.0-12.7 [facility] Comment on above: Order Comment: Speci men Type: BLOOD SPECIMENOrdering Facility: [facility] Address: [address] [place] [address] Performed By: #### 4 537-7, 24974-8 ####[facility] LABCLIA [id number] [place] [address] [place] Platelets (Bld) [#/Vol] 341 10*3/uL Normal 150-400 [facility] Comment on above: Order Comment: Speci men Type: BLOOD SPECIMENOrdering Facility: [facility] Address: [address] [place] [address] Performed By: #### 4 537-7, 30502-0 ####[facility] LABIA [id number] [place] [address] [place] RBC (Bld) [#/Vol] 3.99 10*6/uL Normal 3.90-5.20 [facility] Comment on above: Order Comment: Speci men Type: BLOOD SPECIMENOrdering Facility: [facility] Address: [address] [place] [address] Performed By: #### 4 537-7, 10819-1 ####[facility] LABCLIA [id number] [place] [address] [place] WBC (Bld) [#/Vol] 11.82 10*3/uL High 3.70-11.00 [facility] Comment on above: Order Comment: Speci men Type: BLOOD SPECIMENOrdering Facility: [facility] Address: [address] [place] [address] Performed By: #### 4 537-7, 00476-7 ####[facility] LABCLIA [id number] [address] [address] [place] CRP SerPl-mCncon 08-16-2024 CRP [Mass/Vol] 3.8 mg/dL High <0.9 [facility] Comment on above: Order Comment: Speci men Type: BLOOD SPECIMENOrdering Facility: [facility] Address: [address] [place] [address] Performed By: #### 2 432-8, , 3039-09, 1987-11 ####[facility] LABCLIA [id number] [place] [address] [place] Comprehensive metabolic 2000 panelon 08-16-2024 Albumin [Mass/Vol] 3.6 g/dL Low 3.9-4.9 [facility] Comment on above: Order Comment: Speci men Type: BLOOD SPECIMENOrdering Facility: [facility] Address: [address] [place] [address] Performed By: #### 2 4323-8, , 3039-09, 1987-11 ####[facility] LABCLIA [id number] [place] [id number] [place] ALP [Catalytic activity/Vol] 81 U/L Normal 34-123 [facility] Comment on above: Order Comment: Speci men Type: BLOOD SPECIMENOrdering Facility: [facility] Address: [address] [place] [address] Performed By: #### 2 4323-8, , 3039-09, 1987-11 ####[facility] LABCLIA [id number] [place] [id number] [place] ALT [Catalytic activity/Vol] 21 U/L Normal 7-38 [facility] Comment on above: Order Comment: Speci men Type: BLOOD SPECIMENOrdering Facility: [facility] Address: [address] [place], [place] [address] Performed By: #### 2 432-8, , 3039-09, 1987-11 ####[facility] LABCLIA [id number] [place] [id number] [place] Anion gap [Moles/Vol] 12 mmol/L Normal 8-15 [facility] Comment on above: Order Comment: Speci men Type: BLOOD SPECIMENOrdering Facility: [facility] Address: [address] [place] [address] Performed By: #### 2 432-8, , 3039-09, 1987-11 ####[facility] LABCLIA [id number] [place] [address] [place] AST [Catalytic activity/Vol] 14 U/L Normal 13-35 [facility] Comment on above: Order Comment: Speci men Type: BLOOD SPECIMENOrdering Facility: [facility] Address: [address] [place] [address] Performed By: #### 2 432-8, , 3039-09, 1987-11 ####[facility] LABCLIA [id number] [place] [id number] [place] Bilirubin [Mass/Vol] 0.2 mg/dL Normal 0.2-1.3 [facility] Comment on above: Order Comment: Speci men Type: BLOOD SPECIMENOrdering Facility: [facility] Address: [address] [place] [address] Performed By: #### 2 4323-8, , 3039-09, 1987-11 ####[facility] LABCLIA [id number] [address] [address] [place] Calcium [Mass/Vol] 8.7 mg/dL Normal 8.5-10.2 [facility] Comment on above: Order Comment: Speci men Type: BLOOD SPECIMENOrdering Facility: [facility] Address: [address] [place], [place] [address] Performed By: #### 2 432-8, , 3039-09, 1987-11 ####[facility] LABCLIA [id number] [place] [id number] [place] Chloride [Moles/Vol] 101 mmol/L Normal 98-107 [facility] Comment on above: Order Comment: Speci men Type: BLOOD SPECIMENOrdering Facility: [facility] Address: [address] [place] [address] Performed By: #### 2 432-8, , 3039-09, 1987-11 ####[facility] LABCLIA [id number] [place] [address] [place] CO2 [Moles/Vol] 25 mmol/L Normal 22-30 [facility] Comment on above: Order Comment: Speci men Type: BLOOD SPECIMENOrdering Facility: [facility] Address: [address] [place] [address] Performed By: #### 2 432-8, , 3039-09, 1987-11 ####[facility] LABCLIA [id number] [place] [address] [place] Creatinine [Mass/Vol] 0.42 mg/dL Low 0.58-0.96 [facility] Comment on above: Order Comment: Speci men Type: BLOOD SPECIMENOrdering Facility: [facility] Address: [address] [place] [address] Performed By: #### 2 4323-8, , 3039-09, 1987-11 ####[facility] LABCLIA [id number] [address] [address] [place] Creatinine and Glomerular filtration rate.predicted panel (S/P/Bld) 130 mL/min/1.73m??? Normal >=60 [facility] Comment on above: Order Comment: Darrylroby maris Type: BLOOD SPECIMENOrdering Facility: [facility] Address: [address] [place] [address] Result Comment: Desiree mated Glomerular Filtration Rate (eGFR) is calculated using the 2020 CKD-EPI creatinine equation. This equation utilizes serum creatinine, sex, and age as parameters. The creatinine assay has traceable calibration to isotope dilution-mass spectrometry. Refer to KDIGO guidelines for clinical interpretation. In patients with unstable renal function, e.g. those with acute kidney injury, the eGFR may not accurately reflect actual GFR. Performed By: #### 2 4323-8, 59876-0, 3039-09, 1987-11 ####[facility] LABIA [id number] [place] [address] [place] Glucose [Mass/Vol] 94 mg/dL Normal 74-99 [facility] Comment on above: Order Comment: Elfego pollock Type: BLOOD SPECIMENOrdering Facility: [facility] Address: [address] [place] [address] Result Comment: The [place] Diabetes Association (ADA) provides guidance for cutoff values for fasting glucose and random glucose. The ADA defines fasting as no caloric intake for at least 8 hours. Fasting plasma glucose results between 100 to 125 mg/dL indicate increased risk for diabetes (prediabetes).Fasting plasma glucose results greater than or equal to 126 mg/dL meet the criteria for diagnosis of diabetes. In the absence of unequivocal hyperglycemia, results should be confirmed by repeat testing. In a patient with classic symptoms of hyperglycemia or hyperglycemic crisis, random plasma glucose results greater than or equal to 200 mg/dL meet the criteria for diagnosis of diabetes.Reference: Standards of Medical Care in Diabetes 2016, [place] Diabetes Association. Diabetes Care. 2016.39(Suppl 1). Performed By: #### 2 4323-8, 62569-2, 3039-09, 1987-11 ####[facility] LABIA [id number] [place] [id number] [place] Potassium [Moles/Vol] 4.0 mmol/L Normal 3.7-5.1 [facility] Comment on above: Order Comment: Speci men Type: BLOOD SPECIMENOrdering Facility: [facility] Address: [address] [place], [place] [address] Performed By: #### 2 432-8, , 3039-09, 1987-11 ####[facility] LABCLIA [id number] [address] [address] [place] Protein [Mass/Vol] 6.8 g/dL Normal 6.3-8.0 [facility] Comment on above: Order Comment: Speci men Type: BLOOD SPECIMENOrdering Facility: [facility] Address: [address] [place] [address] Performed By: #### 2 432-8, , 3039-09, 1987-11 ####[facility] LABIA [id number] [place] [id number] [place] Sodium [Moles/Vol] 138 mmol/L Normal 136-144 [facility] Comment on above: Order Comment: Speci men Type: BLOOD SPECIMENOrdering Facility: [facility] Address: [address] [place], [place] [address] Performed By: #### 2 432-8, , 3039-09, 1987-11 ####[facility] LABCLIA [id number] [place] [id number] [place] Urea nitrogen [Mass/Vol] 13 mg/dL Normal 7-21 [facility] Comment on above: Order Comment: Speci men Type: BLOOD SPECIMENOrdering Facility: [facility] Address: [address] [place], [place] [address] Performed By: #### 2 4323-8, 17360-2, 3039-09, 1987-11 ####[facility] LABCLIA [id number] [address] [address] [place] ED NOTEon 08-16-2024 ED NOTE HNO ID: [id number] Author: THOMAS, EDA, CT Service: ? Author Type: Clinical Automation Mechanic Type: ED Notes Filed: 08/16/2024 22:50 Note Text: Pt declined updating vs Normal [facility] ED Triage Noteon 08-16-2024 ED Triage Note Normal [facility] ESR Westergren method (Bld) [Velocity]on 08-16-2024 ESR (Bld) [Velocity] 37 mm/h High 0-20 [facility] Comment on above: Order Comment: Speci men Type: BLOOD SPECIMENOrdering Facility: [facility] Address: [address] [place] [address] Performed By: #### 4 537-7, 75265-3 ####[facility] LABCLIA [id number] [place] [address] [place] Lipase SerPl-cCncon 08-16-19 25 Lipase [Catalytic activity/Vol] 30 U/L Normal 16-61 [facility] Comment on above: Order Comment: Speci men Type: BLOOD SPECIMENOrdering Facility: [facility] Address: [address] [place] [address] Performed By: #### 2 4323-8, 77259-3, 3039-09, 1987-11 ####[facility] LABIA [id number] [place] [address] [place] Magnesium SerPl-mCncon 08-16 Magnesium [Mass/Vol] 2.0 mg/dL Normal 1.7-2.3 [facility] Comment on above: Order Comment: Speci men Type: BLOOD SPECIMENOrdering Facility: [facility] Address: [address] [place] [address] Performed By: #### 2 4323-8, 73575-1, 3039-09, 1987-11 ####[facility] LABCLIA [id number] [place] [address] [place] Alanine aminotransferase [En zymatic activity/volume] in Serum or PlasmaOrdered By: Maru Maguire on 02-10-2025 ALT [Catalytic activity/Vol] Alanine aminotransferase [Enzymatic activity/volume] in Serum or Plasma 7-52 [facility] Albumin [Mass/volume] in Ser um or Plasma by Bromocresol green (BCG) dye binding methoOrdered By: Maru Maguire on 08-14-2024 Albumin BCG dye [Mass/Vol] Albumin [Mass/volume] in Serum or Plasma by Bromocresol green (BCG) dye binding metho 3.5-5.7 [facility] Alkaline phosphatase [Enzyma tic activity/volume] in Serum or PlasmaOrdered By: Maru Maguire on 08-14-2024 ALP [Catalytic activity/Vol] Alkaline phosphatase [Enzymatic activity/volume] in Serum or Plasma 34-104 [facility] Aspartate aminotransferase [ Enzymatic activity/volume] in Serum or PlasmaOrdered By: Maru Maguire on 08-14-2024 AST [Catalytic activity/Vol] Aspartate aminotransferase [Enzymatic activity/volume] in Serum or Plasma 13-39 [facility] Bilirubin.total [Mass/volume ] in Serum or PlasmaOrdered By: Maru Maguire on 08-14-2024 Bilirubin [Mass/Vol] Bilirubin.total [Mass/volume] in Serum or Plasma Low 0.3-1.0 [facility] Calcium [Mass/volume] in Ser um or PlasmaOrdered By: Maru Maguire on 08-14-2024 Calcium [Mass/Vol] Calcium [Mass/volume] in Serum or Plasma 8.6-10.3 [facility] Carbon dioxide, total [Moles /volume] in Serum or PlasmaOrdered By: Maru Maguire on 08-14-2024 CO2 [Moles/Vol] Carbon dioxide, total [Moles/volume] in Serum or Plasma 21.0-31.0 [facility] Chloride [Moles/volume] in S flaco or PlasmaOrdered By: Maru Maguire on 08-14-2024 Chloride [Moles/Vol] Chloride [Moles/volume] in Serum or Plasma 98-107 [facility] Comprehensive Metabolic Pane tameka 08-14-2024 Albumin [Mass/Vol] 3.6 g/dL Normal 3.5-5.7 [facility] Comment on above: Performed By: #### C MP, CBCNO, MG, TRIG #### [place] [id number] [place] Albumin/Globulin [Mass ratio] 1.2 {ratio} Normal [facility] Comment on above: Performed By: #### C MP, CBCNO, MG, TRIG #### [address] ALP [Catalytic activity/Vol] 72 U/L Normal 34-104 [facility] Comment on above: Performed By: #### C MP, CBCNO, MG, TRIG #### [address] ALT [Catalytic activity/Vol] 20 U/L Normal 7-52 [facility] Comment on above: Performed By: #### C MP, CBCNO, MG, TRIG #### [address] Anion gap [Moles/Vol] 11.0 mmol/L Normal 6.0-15.0 [facility] Comment on above: Performed By: #### C MP, CBCNO, MG, TRIG #### [place] [id number] [place] AST [Catalytic activity/Vol] 13 U/L Normal 13-39 [facility] Comment on above: Performed By: #### C MP, CBCNO, MG, TRIG #### [address] Bilirubin [Mass/Vol] 0.1 mg/dL Low 0.3-1.0 [facility] Comment on above: Performed By: #### C MP, CBCNO, MG, TRIG #### [place] [id number] [place] Calcium [Mass/Vol] 8.8 mg/dL Normal 8.6-10.3 [facility] Comment on above: Performed By: #### C MP, CBCNO, MG, TRIG #### [place] [id number] [place] Chloride [Moles/Vol] 105 mmol/L Normal 98-107 [facility] Comment on above: Performed By: #### C MP, CBCNO, MG, TRIG #### [facility] [address] CO2 [Moles/Vol] 26.3 mmol/L Normal 21.0-31.0 [facility] Comment on above: Performed By: #### C MP, CBCNO, MG, TRIG #### [facility] [address] Creatinine [Mass/Vol] 0.45 mg/dL Low 0.60-1.20 [facility] Comment on above: Performed By: #### C MP, CBCNO, MG, TRIG #### [place] [id number] [place] GFR/1.73 sq M.predicted MDRD (S/P/Bld) [Vol rate/Area] mL/min/{1.73_m2} Normal [facility] Comment on above: Performed By: #### C MP, CBCNO, MG, TRIG #### [address] Globulin (S) [Mass/Vol] 3.1 g/dL Normal [facility] Comment on above: Performed By: #### C MP, CBCNO, MG, TRIG #### [address] Glucose [Mass/Vol] 85 mg/dL Normal 70-100 [facility] Comment on above: Result Comment: [facility] Glucose Reference Range is dependent on time and content of last meal. Glucose of more than 200 mg/dL in a nonstressed, ambulatory subject supports the diagnosis of Diabetes Mellitus. ADA recommended reference range Performed By: #### C MP, CBCNO, MG, TRIG #### [address] Potassium [Moles/Vol] 4.3 mmol/L Normal 3.5-5.1 [facility] Comment on above: Performed By: #### C MP, CBCNO, MG, TRIG #### [address] Protein [Mass/Vol] 6.7 g/dL Normal 6.4-8.9 [facility] Comment on above: Performed By: #### C MP, CBCNO, MG, TRIG #### [facility] [address] Sodium [Moles/Vol] 138 mmol/L Normal 136-145 [facility] Comment on above: Performed By: #### C MP, CBCNO, MG, TRIG #### [facility] [address] [place] [address] [place] Urea nitrogen [Mass/Vol] 23 mg/dL Normal 7-25 [facility] Comment on above: Performed By: #### C MP, CBCNO, MG, TRIG #### [facility] [address] Creatinine [Mass/volume] in Serum or PlasmaOrdered By: Maru Maguire on 08-14-2024 Creatinine [Mass/Vol] Creatinine [Mass/volume] in Serum or Plasma Low 0.60-1.20 [facility] Erythrocyte distribution wid th Auto (RBC) [Ratio]Ordered By: Maru Maguire on 08-14-2024 Erythrocyte distribution width (RBC) [Ratio] Erythrocyte distribution width [Ratio] by Automated count High 11.9-15.3 [facility] Globulin Calc (S) [Mass/Vol] Ordered By: Maru Maguire on 08-14-2024 Globulin (S) [Mass/Vol] Serum globulin measurement by calculation (mass/volume) [facility] Glucose [Mass/volume] in Ser um or PlasmaOrdered By: Maru Maguire on 08-14-2024 Glucose [Mass/Vol] Glucose [Mass/volume] in Serum or Plasma 70-100 [facility] Comment on above: ADA recommended refe rence rangeRandom Glucose Reference Range is dependent on time and content of last meal. Glucose of more than 200 mg/dL in a nonstressed, ambulatory subject supports the diagnosis of Diabetes Mellitus. Hematocrit Auto (Bld) [Volum e fraction]Ordered By: Maru Maguire on 08-14-2024 Hematocrit (Bld) [Volume fraction] Hematocrit [Volume Fraction] of Blood by Automated count Low 34.0-46.4 [facility] Hemoglobin [Mass/volume] in BloodOrdered By: Maru Maguire on 08-14-2024 Hemoglobin (Bld) [Mass/Vol] Hemoglobin [Mass/volume] in Blood Low 11.8-15.4 [facility] Hemogram CBC Without Diffon 08-14-2024 Erythrocyte distribution width (RBC) [Ratio] 15.8 % High 11.9-15.3 [facility] Comment on above: Performed By: #### C MP, CBCNO, MG, TRIG #### [address] Hematocrit (Bld) [Volume fraction] 31.9 % Low 34.0-46.4 [facility] Comment on above: Performed By: #### C MP, CBCNO, MG, TRIG #### [address] Hemoglobin (Bld) [Mass/Vol] 10.6 g/dL Low 11.8-15.4 [facility] Comment on above: Performed By: #### C MP, CBCNO, MG, TRIG #### [address] MCH (RBC) [Entitic mass] 28.6 pg Normal 24.7-34.3 [facility] Comment on above: Performed By: #### C MP, CBCNO, MG, TRIG #### [address] MCV (RBC) [Entitic vol] 86.6 fL Normal 80-100 [facility] Comment on above: Performed By: #### C MP, CBCNO, MG, TRIG #### [address] Mean Corpuscular HGB Conc 33.1 g/dL Normal 32.0-35.0 [facility] Comment on above: Performed By: #### C MP, CBCNO, MG, TRIG #### [address] Platelet mean volume (Bld) [Entitic vol] 8.7 fL Normal 6.3-10.7 [facility] Comment on above: Result Comment: PERF ORMED BY: [place] [address] PATHOLOGIST TRIMMER SAWYER GENOVEVA RENDON M.D. Performed By: #### C MP, CBCNO, MG, TRIG #### [facility] [address] Platelets (Bld) [#/Vol] 316 10*3/uL Normal 150-450 [facility] Comment on above: Performed By: #### C MP, CBCNO, MG, TRIG #### [facility] [address] RBC (Bld) [#/Vol] 3.69 10*6/uL Normal 3.60-5.00 [facility] Comment on above: Performed By: #### C MP, CBCNO, MG, TRIG #### [facility] [address] WBC (Bld) [#/Vol] 8.3 10*3/uL Normal 3.8-11.6 [facility] Comment on above: Performed By: #### C MP, CBCNO, MG, TRIG #### [facility] [address] Leukocytes [#/volume] correc wanedr for nucleated erythrocytes in Blood by Automated counOrdered By: Maru Maguire on 08-14-2024 WBC corrected for nucl RBC Auto (Bld) [#/Vol] Leukocytes [#/volume] corrected for nucleated erythrocytes in Blood by Automated coun 3.8-11.6 [facility] MCH Auto (RBC) [Entitic mass ]Ordered By: Maru Maguire on 08-14-2024 MCH (RBC) [Entitic mass] MCH [Entitic mass] by Automated count 24.7-34.3 [facility] MCHC Auto (RBC) [Mass/Vol]Or dered By: Maru Maguire on 08-14-2024 MCHC (RBC) [Mass/Vol] MCHC [Mass/volume] by Automated count 32.0-35.0 [facility] MCV Auto (RBC) [Entitic vol] Ordered By: Maru Maguire on 08-14-2024 MCV (RBC) [Entitic vol] MCV [Entitic volume] by Automated count 80-100 [facility] Magnesiumon 08-14-2024 Magnesium [Mass/Vol] 2.0 mg/dL Normal 1.9-2.7 [facility] Comment on above: Performed By: #### C MP, CBCNO, MG, TRIG #### [facility] [address] Magnesium [Mass/volume] in S flaco or PlasmaOrdered By: Maru Maguire on 08-14-2024 Magnesium [Mass/Vol] Magnesium [Mass/volume] in Serum or Plasma 1.9-2.7 [facility] No Panel InformationOrdered By: Maru Maguire on 08-14-2024 Estimated GFR (CKD-EPI) > 60.0 mL/Min [facility] Creatinine Clearance (Chem N/A [facility] Platelet mean volume Auto (B ld) [Entitic vol]Ordered By: Maru Maguire on 08-14-2024 Platelet mean volume (Bld) [Entitic vol] Platelet mean volume [Entitic volume] in Blood by Automated count 6.3-10.7 [facility] Platelets Auto (Bld) [#/Vol] Ordered By: Maru Maguire on 08-14-2024 Platelets (Bld) [#/Vol] Platelets [#/volume] in Blood by Automated count 150-450 [facility] Potassium [Moles/volume] in Serum or PlasmaOrdered By: Maru Maguire on 08-14-2024 Potassium [Moles/Vol] Potassium [Moles/volume] in Serum or Plasma 3.5-5.1 [facility] Protein [Mass/volume] in Ser um or PlasmaOrdered By: Maru Maguire on 08-14-2024 Protein [Mass/Vol] Protein [Mass/volume] in Serum or Plasma 6.4-8.9 [facility] RBC Auto (Bld) [#/Vol]Ordere d By: Maru Maguire on 08-14-2024 RBC (Bld) [#/Vol] Erythrocytes [#/volume] in Blood by Automated count 3.60-5.00 [facility] Serum or plasma albumin/glob ulin mass ratioOrdered By: Maru Maguire on 08-14-2024 Albumin/Globulin [Mass ratio] Serum or plasma albumin/globulin mass ratio [facility] Serum or plasma anion gap de terminationOrdered By: Maru Maguire on 08-14-2024 Anion gap [Moles/Vol] Serum or plasma anion gap determination 6.0-15.0 [facility] Sodium [Moles/volume] in Ser um or PlasmaOrdered By: Maru Maguire on 08-14-2024 Sodium [Moles/Vol] Sodium [Moles/volume] in Serum or Plasma 136-145 [facility] Triglyceride [Mass/volume] i n Serum or PlasmaOrdered By: Maru Maguire on 08-14-2024 Triglyceride [Mass/Vol] Triglyceride [Mass/volume] in Serum or Plasma 35-149 [facility] Comment on above: TRIG ATP III CLASSIF ICATIONTRIG less than 150 mg/dL NormalTRIG 150-199 mg/dL Borderline highTRIG 200-500 mg/dL High TRIG greater than 500 mg/dL Very highStandard traceable to the Center for Disease Conrtrol and Prevention (CDC) test method. Triglycerideson 08-14-2024 Triglyceride [Mass/Vol] 97 mg/dL Normal 35-149 [facility] Comment on above: Result Comment: TRIG ATP III CLASSIFICATION TRIG less than 150 mg/dL Normal TRIG 150-199 mg/dL Borderline high TRIG 200-500 mg/dL High TRIG greater than 500 mg/dL Very high Standard traceable to the Center for Disease Conrtrol and Prevention (CDC) test method. PERFORMED BY: [place] [address] PATHOLOGIST TRIMMER SAWYER GENOVEVA RENDON M.D. Performed By: #### C MP, CBCNO, MG, TRIG #### [address] Urea nitrogen [Mass/volume] in Serum or PlasmaOrdered By: Maru Maguire on 08-14-2024 Urea nitrogen [Mass/Vol] Urea nitrogen [Mass/volume] in Serum or Plasma 7-25 [facility] CASE MANAGEMon 08-08-2024 CASE MANAGEM Normal [facility] CNDSon 08-08-2024 CNDS Normal [facility] Magnesium SerPl-mCncon 08-08 Magnesium [Mass/Vol] 2.0 mg/dL Normal 1.7-2.3 [facility] Comment on above: Order Comment: Speci men Type: BLOOD SPECIMENOrdering Facility: [facility] Address: [address] [place] [address] Performed By: #### 1 9123-9, 56146-6, 2571-8 ####[facility] LABCLIA [id number] [place] [address] [place] Renal function 2000 panelon 08-08-2024 Albumin [Mass/Vol] 3.4 g/dL Low 3.9-4.9 [facility] Comment on above: Order Comment: Speci men Type: BLOOD SPECIMENOrdering Facility: [facility] Address: [address] [place] [address] Performed By: #### 1 9123-9, 43124-5, 2571-8 ####[facility] LABIA [id number] [place] [address] [place] Anion gap [Moles/Vol] 10 mmol/L Normal 8-15 [facility] Comment on above: Order Comment: Speci men Type: BLOOD SPECIMENOrdering Facility: [facility] Address: [address] [place] [address] Performed By: #### 1 9123-9, 68979-1, 2571-8 ####[facility] LABCLIA [id number] [place] [id number] [place] Calcium [Mass/Vol] 8.9 mg/dL Normal 8.5-10.2 [facility] Comment on above: Order Comment: Speci men Type: BLOOD SPECIMENOrdering Facility: [facility] Address: [address] [place] [address] Performed By: #### 1 9123-9, 39251-9, 2578 ####[facility] LABCLIA [id number] [place] [id number] [place] Chloride [Moles/Vol] 104 mmol/L Normal 98-107 [facility] Comment on above: Order Comment: Speci men Type: BLOOD SPECIMENOrdering Facility: [facility] Address: [address] [place] [address] Performed By: #### 1 9123-9, 38631-4, 2578 ####[facility] LABIA [id number] [place] [address] [place] CO2 [Moles/Vol] 25 mmol/L Normal 22-30 [facility] Comment on above: Order Comment: Speci men Type: BLOOD SPECIMENOrdering Facility: [facility] Address: [address] [place] [address] Performed By: #### 1 9123-9, 19666-2, 2578 ####[facility] LABIA [id number] [place] [address] [place] Creatinine [Mass/Vol] 0.48 mg/dL Low 0.58-0.96 [facility] Comment on above: Order Comment: Speci men Type: BLOOD SPECIMENOrdering Facility: [facility] Address: [address] [place] [address] Performed By: #### 1 9123-9, 72025-7, 2578 ####[facility] LABIA [id number] [place] [id number] [place] Creatinine and Glomerular filtration rate.predicted panel (S/P/Bld) 126 mL/min/1.73m??? Normal >=60 [facility] Comment on above: Order Comment: Speci men Type: BLOOD SPECIMENOrdering Facility: [facility] Address: [address] [place] [address] Result Comment: Desiree mated Glomerular Filtration Rate (eGFR) is calculated using the 2020 CKD-EPI creatinine equation. This equation utilizes serum creatinine, sex, and age as parameters. The creatinine assay has traceable calibration to isotope dilution-mass spectrometry. Refer to KDIGO guidelines for clinical interpretation. In patients with unstable renal function, e.g. those with acute kidney injury, the eGFR may not accurately reflect actual GFR. Performed By: #### 1 9123-9, 43524-2, 2570-8 ####[facility] LABCLIA [id number] [address] [address] [place] Glucose [Mass/Vol] 104 mg/dL High 74-99 [facility] Comment on above: Order Comment: Elfego pollock Type: BLOOD SPECIMENOrdering Facility: [facility] Address: [address] [place] [address] Result Comment: The [place] [employer] (ADA) provides guidance for cutoff values for fasting glucose and random glucose. The ADA defines fasting as no caloric intake for at least 8 hours. Fasting plasma glucose results between 100 to 125 mg/dL indicate increased risk for diabetes (prediabetes).Fasting plasma glucose results greater than or equal to 126 mg/dL meet the criteria for diagnosis of diabetes. In the absence of unequivocal hyperglycemia, results should be confirmed by repeat testing. In a patient with classic symptoms of hyperglycemia or hyperglycemic crisis, random plasma glucose results greater than or equal to 200 mg/dL meet the criteria for diagnosis of diabetes.Reference: Standards of Medical Care in Diabetes 2016, [employer]. Diabetes Care. 2016.39(Suppl 1). Performed By: #### 1 9123-9, 34580-0, 8 ####[facility] LABIA [id number] [address] [address] [place] Phosphate [Mass/Vol] 4.0 mg/dL Normal 2.7-4.8 [facility] Comment on above: Order Comment: Elfego pollock Type: BLOOD SPECIMENOrdering Facility: [facility] Address: [address] [place] [address] Performed By: #### 1 9123-9, 48374-7, 2570-8 ####[facility] LABIA [id number] [place] [address] [place] Potassium [Moles/Vol] 4.0 mmol/L Normal 3.7-5.1 [facility] Comment on above: Order Comment: Speci men Type: BLOOD SPECIMENOrdering Facility: [facility] Address: [address] [place] [address] Performed By: #### 1 9123-9, 38708-2, 2571-8 ####[facility] LABIA [id number] [place] [address] [place] Sodium [Moles/Vol] 139 mmol/L Normal 136-144 [facility] Comment on above: Order Comment: Speci men Type: BLOOD SPECIMENOrdering Facility: [facility] Address: [address] [place] [address] Performed By: #### 1 9123-9, 62312-6, 2571-8 ####[facility] LABIA [id number] [place] [address] [place] Urea nitrogen [Mass/Vol] 16 mg/dL Normal 7-21 [facility] Comment on above: Order Comment: Speci men Type: BLOOD SPECIMENOrdering Facility: [facility] Address: [address] [place] [address] Performed By: #### 1 9123-9, 44616-4, 2571-8 ####[facility] LABIA [id number] [place] [address] [place] Trigl SerPl-mCncon 5 Triglyceride [Mass/Vol] 125 mg/dL Normal <150 [facility] Comment on above: Order Comment: Speci men Type: BLOOD SPECIMENOrdering Facility: [facility] Address: [address] [place] [address] Result Comment: <150 mg/dL, Normal 150-199 mg/dL, Borderline high 200-499 mg/dL, High>499 mg/dL, Very highReference:1. National Cholesterol Education Program ATP III Guideline At-A-Glance Quick Desk Reference: National Heart, Lung, and Blood [place]. National Institutes of Health. 2001: NIH Publication No. 01-3305. Performed By: #### 1 9123-9, 90097-6, 8 ####[facility] LABCLIA [id number] [facility] [address] [address] [place] Triglyceride [Mass/Vol]on FASTING TIME 6 hrs Normal [facility] Comment on above: Order Comment: Speci men Type: BLOOD SPECIMENOrdering Facility: [facility] Address: [address] [place] [address] Performed By: #### 1 9123-9, 60804-3, 2571-02 ####[facility] LABCLIA [id number] [place] [id number] [place] XR ABDOMEN 1V SUPINEon 08-08 XR ABDOMEN 1V SUPINE [facility] Basic metabolic 2000 panelon 08-07-2024 Anion gap [Moles/Vol] 11 mmol/L Normal 8-15 [facility] Comment on above: Order Comment: Speci men Type: BLOOD SPECIMENOrdering Facility: [facility] Address: [address] [place] [address] Performed By: #### 2 4325-3, 46216-2, , 1987-11 ####[facility] LABCLIA [id number] [place] [id number] [place] Calcium [Mass/Vol] 8.5 mg/dL Normal 8.5-10.2 [facility] Comment on above: Order Comment: Speci men Type: BLOOD SPECIMENOrdering Facility: [facility] Address: [address] [place] [address] Performed By: #### 2 4325-3, 43832-5, 16244-0, 1987-11 ####[facility] LABCLIA [id number] [facility] [place] [id number] [place] Chloride [Moles/Vol] 108 mmol/L High 98-107 [facility] Comment on above: Order Comment: Speci men Type: BLOOD SPECIMENOrdering Facility: [facility] Address: [address] [place], [place] [address] Performed By: #### 2 4325-3, , , 1987-11 ####[facility] LABCLIA [id number] [place] [id number] [place] CO2 [Moles/Vol] 21 mmol/L Low 22-30 [facility] Comment on above: Order Comment: Speci men Type: BLOOD SPECIMENOrdering Facility: [facility] Address: [address] [place] [address] Performed By: #### 2 4325-3, , , 1987-11 ####[facility] LABIA [id number] [place] [address] [place] Creatinine [Mass/Vol] 0.51 mg/dL Low 0.58-0.96 [facility] Comment on above: Order Comment: Speci men Type: BLOOD SPECIMENOrdering Facility: [facility] Address: [address] [place] [address] Performed By: #### 2 4325-3, , , 1987-11 ####[facility]IA [id number] [place] [id number] [place] Creatinine and Glomerular filtration rate.predicted panel (S/P/Bld) 124 mL/min/1.73m??? Normal >=60 [facility] Comment on above: Order Comment: Speci men Type: BLOOD SPECIMENOrdering Facility: [facility] Address: [address] [place] [address] Result Comment: Desiree mated Glomerular Filtration Rate (eGFR) is calculated using the 2020 CKD-EPI creatinine equation. This equation utilizes serum creatinine, sex, and age as parameters. The creatinine assay has traceable calibration to isotope dilution-mass spectrometry. Refer to KDIGO guidelines for clinical interpretation. In patients with unstable renal function, e.g. those with acute kidney injury, the eGFR may not accurately reflect actual GFR. Performed By: #### 2 4324-3, , , 1987-11 ####[facility] LABCLIA [id number] [address] [address] [place] Glucose [Mass/Vol] 92 mg/dL Normal 74-99 [facility] Comment on above: Order Comment: Elfego pollock Type: BLOOD SPECIMENOrdering Facility: [facility] Address: [address] [place] [address] Result Comment: The [place] Diabetes Association (ADA) provides guidance for cutoff values for fasting glucose and random glucose. The ADA defines fasting as no caloric intake for at least 8 hours. Fasting plasma glucose results between 100 to 125 mg/dL indicate increased risk for diabetes (prediabetes).Fasting plasma glucose results greater than or equal to 126 mg/dL meet the criteria for diagnosis of diabetes. In the absence of unequivocal hyperglycemia, results should be confirmed by repeat testing. In a patient with classic symptoms of hyperglycemia or hyperglycemic crisis, random plasma glucose results greater than or equal to 200 mg/dL meet the criteria for diagnosis of diabetes.Reference: Standards of Medical Care in Diabetes 2016, [employer] Diabetes [employer]. Diabetes Care. 2016.39(Suppl 1). Performed By: #### 2 4324-3, , , 1987-11 ####[facility] LABCLIA [id number] [address] [address] [place] Potassium [Moles/Vol] 3.8 mmol/L Normal 3.7-5.1 [facility] Comment on above: Order Comment: Elfego pollock Type: BLOOD SPECIMENOrdering Facility: [facility] Address: [address] [place] [address] Performed By: #### 2 4324-3, , , 1987-11 ####[facility] LABCLIA [id number] [address] [address] [place] Sodium [Moles/Vol] 140 mmol/L Normal 136-144 [facility] Comment on above: Order Comment: Speci men Type: BLOOD SPECIMENOrdering Facility: [facility] Address: [address] [place] [address] Performed By: #### 2 4325-3, 52365-6, 23091-0, 1987-11 ####[facility] LABCLIA [id number] [place] [address] [place] Urea nitrogen [Mass/Vol] 12 mg/dL Normal 7-21 [facility] Comment on above: Order Comment: Speci men Type: BLOOD SPECIMENOrdering Facility: [facility] Address: [address] [place] [address] Performed By: #### 2 432-3, , 33364-8, 1987-11 ####[facility] LABCLIA [id number] [place] [address] [place] CASE MANAGEMon 08-07-2024 CASE MANAGEM Normal [facility] CASE MANAGEM Normal [facility] CBC panel Auto (Bld)on 08-07 Erythrocyte distribution width (RBC) [Ratio] 15.7 % High 11.5-15.0 [facility] Comment on above: Order Comment: Speci men Type: BLOOD SPECIMENOrdering Facility: [facility] Address: [address] [place] [address] Performed By: #### 5 8410-2 ####[facility] LABCLIA [id number] [place] [id number] [place] Hematocrit (Bld) [Volume fraction] 30.0 % Low 36.0-46.0 [facility] Comment on above: Order Comment: Speci men Type: BLOOD SPECIMENOrdering Facility: [facility] Address: [address] [place] [address] Performed By: #### 5 8410-2 ####[facility] LABCLIA [id number] [place] [address] [place] Hemoglobin (Bld) [Mass/Vol] 9.8 g/dL Low 11.5-15.5 [facility] Comment on above: Order Comment: Speci men Type: BLOOD SPECIMENOrdering Facility: [facility] Address: [address] [place] [address] Performed By: #### 5 8410-2 ####[facility] LABIA [id number] [place] [address] [place] MCH (RBC) [Entitic mass] 29.0 pg Normal 26.0-34.0 [facility] Comment on above: Order Comment: Speci men Type: BLOOD SPECIMENOrdering Facility: [facility] Address: [address] [place] [address] Performed By: #### 5 8410-2 ####[facility]IA [id number] [address] [place] MCHC (RBC) [Mass/Vol] 32.7 g/dL Normal 30.5-36.0 [facility] Comment on above: Order Comment: Speci men Type: BLOOD SPECIMENOrdering Facility: [facility] Address: [address] [place] [address] Performed By: #### 5 8410-2 ####[facility] LABIA [id number] [place] [address] [place] MCV (RBC) [Entitic vol] 88.8 fL Normal 80.0-100.0 [facility] Comment on above: Order Comment: Speci men Type: BLOOD SPECIMENOrdering Facility: [facility] Address: [address] [place] [address] Performed By: #### 5 8410-2 ####[facility] LABIA [id number] [place] [address] [place] Nucleated RBC (Bld) [#/Vol] 10*3/uL Normal <0.01 [facility] Comment on above: Order Comment: Speci men Type: BLOOD SPECIMENOrdering Facility: [facility] Address: [address] [place] [address] Performed By: #### 5 8410-2 ####[facility] LABCLIA [id number] [place] [address] [place] Platelet mean volume (Bld) [Entitic vol] 11.0 fL Normal 9.0-12.7 [facility] Comment on above: Order Comment: Speci men Type: BLOOD SPECIMENOrdering Facility: [facility] Address: [address] [place] [address] Performed By: #### 5 8410-2 ####[facility] LABCLIA [id number] [place] [address] [place] Platelets (Bld) [#/Vol] 205 10*3/uL Normal 150-400 [facility] Comment on above: Order Comment: Speci men Type: BLOOD SPECIMENOrdering Facility: [facility] Address: [address] [place] [address] Performed By: #### 5 8410-2 ####[facility] LABIA [id number] [place] [address] [place] RBC (Bld) [#/Vol] 3.38 10*6/uL Low 3.90-5.20 [facility] Comment on above: Order Comment: Speci men Type: BLOOD SPECIMENOrdering Facility: [facility] Address: [address] [place] [address] Performed By: #### 5 8410-2 ####[facility] LABCLIA [id number] [place] [address] [place] WBC (Bld) [#/Vol] 8.14 10*3/uL Normal 3.70-11.00 [facility] Comment on above: Order Comment: Speci men Type: BLOOD SPECIMENOrdering Facility: [facility] Address: [address] [place] [address] Performed By: #### 5 8410-2 ####[facility] LABCLIA [id number] [place] [address] [place] CONSULT PROGon 08-07-2024 CONSULT PROG Normal [facility] CRP SerPl-mCncon 08-07-2024 CRP [Mass/Vol] 1.3 mg/dL High <0.9 [facility] Comment on above: Order Comment: Speci men Type: BLOOD SPECIMENOrdering Facility: [facility] Address: [address] [place] [address] Performed By: #### 2 4325-3, , , 1987-11 ####[facility] LABCLIA [id number] [place] [address] [place] Hepatic function 2000 panelo n 08-07-2024 Albumin [Mass/Vol] 3.1 g/dL Low 3.9-4.9 [facility] Comment on above: Order Comment: Speci men Type: BLOOD SPECIMENOrdering Facility: [facility] Address: [address] [place] [address] Performed By: #### 2 4325-3, , , 1987-11 ####[facility] LABCLIA [id number] [place] [address] [place] ALP [Catalytic activity/Vol] 70 U/L Normal 34-123 [facility] Comment on above: Order Comment: Speci men Type: BLOOD SPECIMENOrdering Facility: [facility] Address: [address] [place] [address] Performed By: #### 2 4325-3, , , 1987-11 ####[facility] LABCLIA [id number] [place] [address] [place] ALT [Catalytic activity/Vol] 31 U/L Normal 7-38 [facility] Comment on above: Order Comment: Speci men Type: BLOOD SPECIMENOrdering Facility: [facility] Address: [address] [place], [place] [address] Performed By: #### 2 4324-3, , , 1987-11 ####[facility] LABCLIA [id number] [address] [address] [place] AST [Catalytic activity/Vol] 30 U/L Normal 13-35 [facility] Comment on above: Order Comment: Speci men Type: BLOOD SPECIMENOrdering Facility: [facility] Address: [address] [place], [place] [address] Performed By: #### 2 4324-3, , , 1987-11 ####[facility] LABCLIA [id number] [place] [id number] [place] Bilirubin [Mass/Vol] mg/dL Low 0.2-1.3 [facility] Comment on above: Order Comment: Speci men Type: BLOOD SPECIMENOrdering Facility: [facility] Address: [address] [place] [address] Performed By: #### 2 4324-3, , , 1987-11 ####[facility] LABCLIA [id number] [place] [address] [place] Bilirubin.conjugated [Mass/Vol] mg/dL Normal <0.3 [facility] Comment on above: Order Comment: Speci men Type: BLOOD SPECIMENOrdering Facility: [facility] Address: [address] [place], [place] [address] Performed By: #### 2 4324-3, , , 1987-11 ####[facility] LABCLIA [id number] [place] [id number] [place] Protein [Mass/Vol] 5.9 g/dL Low 6.3-8.0 [facility] Comment on above: Order Comment: Speci men Type: BLOOD SPECIMENOrdering Facility: [facility] Address: [address] [place], [place] [address] [id number] Performed By: #### 2 4325-3, , , 1987-11 ####[facility] LABCLIA [id number] [place] [address] [place] Magnesium SerPl-mCncon 08-07 Magnesium [Mass/Vol] 1.9 mg/dL Normal 1.7-2.3 [facility] Comment on above: Order Comment: Speci men Type: BLOOD SPECIMENOrdering Facility: [facility] Address: [address] [place] [address] Performed By: #### 2 4325-3, , , 1987-11 ####[facility] LABCLIA [id number] [place] [address] [place] PT EDon 08-07-2024 PT ED Normal [facility] Phosphate SerPl-mCncon 08-07 Phosphate [Mass/Vol] 3.3 mg/dL Normal 2.7-4.8 [facility] Comment on above: Order Comment: Speci men Type: BLOOD SPECIMENOrdering Facility: [facility] Address: [address] [place], [place] [address] [address] Performed By: #### 2 777-1 ####[facility] LABCLIA [id number] [place] [address] [place] Bacteria Bld Culton 08-06-19 25 Bacteria identified Cx Nom (Bld) CULTURE, BLOOD: No growth 5 days Normal [facility] Comment on above: Performed By: #### 6 00-7 ####[facility] LABCLIA [id number] [place] [address] [place] Bacteria identified Cx Nom (Bld) CULTURE, BLOOD: No growth 5 days Normal [facility] Comment on above: Performed By: #### 6 00-7 ####[facility] LABCLIA [id number] [place] [address] [place] CBC panel Auto (Bld)on 08-06 Erythrocyte distribution width (RBC) [Ratio] 15.3 % High 11.5-15.0 [facility] Comment on above: Order Comment: Speci men Type: BLOOD SPECIMENOrdering Facility: [facility] Address: [address] [place] [address] Performed By: #### 5 8410-2 ####[facility] LABIA [id number] [place] [address] [place] Hematocrit (Bld) [Volume fraction] 30.2 % Low 36.0-46.0 [facility] Comment on above: Order Comment: Speci men Type: BLOOD SPECIMENOrdering Facility: [facility] Address: [address] [place] [address] Performed By: #### 5 8410-2 ####[facility] [id number] [place] [address] [place] Hemoglobin (Bld) [Mass/Vol] 9.6 g/dL Low 11.5-15.5 [facility] Comment on above: Order Comment: Speci men Type: BLOOD SPECIMENOrdering Facility: [facility] Address: [address] [place] [address] Performed By: #### 5 8410-2 ####[facility] LABIA [id number] [place] [address] [place] MCH (RBC) [Entitic mass] 28.6 pg Normal 26.0-34.0 [facility] Comment on above: Order Comment: Speci men Type: BLOOD SPECIMENOrdering Facility: [facility] Address: [address] [place] [address] Performed By: #### 5 8410-2 ####[facility] LABIA [id number] [place] [address] [place] MCHC (RBC) [Mass/Vol] 31.8 g/dL Normal 30.5-36.0 [facility] Comment on above: Order Comment: Speci men Type: BLOOD SPECIMENOrdering Facility: [facility] Address: [address] [place] [address] Performed By: #### 5 8410-2 ####[facility]IA [id number] [place] [address] [place] MCV (RBC) [Entitic vol] 89.9 fL Normal 80.0-100.0 [facility] Comment on above: Order Comment: Speci men Type: BLOOD SPECIMENOrdering Facility: [facility] Address: [address] [place] [address] Performed By: #### 5 8410-2 ####[facility]IA [id number] [place] [address] [place] Nucleated RBC (Bld) [#/Vol] 10*3/uL Normal <0.01 [facility] Comment on above: Order Comment: Speci men Type: BLOOD SPECIMENOrdering Facility: [facility] Address: [address] [place] [address] Performed By: #### 5 8410-2 ####[facility]IA [id number] [place] [address] [place] Platelet mean volume (Bld) [Entitic vol] 11.4 fL Normal 9.0-12.7 [facility] Comment on above: Order Comment: Speci men Type: BLOOD SPECIMENOrdering Facility: [facility] Address: [address] [place] [address] Performed By: #### 5 8410-2 ####[facility]IA [id number] [place] [address] [place] Platelets (Bld) [#/Vol] 189 10*3/uL Normal 150-400 [facility] Comment on above: Order Comment: Speci men Type: BLOOD SPECIMENOrdering Facility: [facility] Address: [address] [place] [address] Performed By: #### 5 8410-2 ####[facility]IA [id number] [place] [address] [place] RBC (Bld) [#/Vol] 3.36 10*6/uL Low 3.90-5.20 [facility] Comment on above: Order Comment: Speci men Type: BLOOD SPECIMENOrdering Facility: [facility] Address: [address] [place] [address] Performed By: #### 5 8410-2 ####[facility] LABIA [id number] [place] [address] [place] WBC (Bld) [#/Vol] 7.03 10*3/uL Normal 3.70-11.00 [facility] Comment on above: Order Comment: Speci men Type: BLOOD SPECIMENOrdering Facility: [facility] Address: [address] [place] [address] Performed By: #### 5 8410-2 ####[facility]IA [id number] [place] [address] [place] CONSULT PROGon 08-06-2024 CONSULT PROG Normal [facility] Magnesium SerPl-mCncon 08-06 Magnesium [Mass/Vol] 1.8 mg/dL Normal 1.7-2.3 [facility] Comment on above: Order Comment: Speci men Type: BLOOD SPECIMENOrdering Facility: [facility] Address: [address] [place] [address] Performed By: #### 1 9123-9, 34796-0 ####[facility] LABIA [id number] [place] [address] [place] Renal function 2000 panelon 08-06-2024 Albumin [Mass/Vol] 3.2 g/dL Low 3.9-4.9 [facility] Comment on above: Order Comment: Speci men Type: BLOOD SPECIMENOrdering Facility: [facility] Address: [address] [place], [place] [address] Performed By: #### 1 9123-9, 28937-6 ####[facility] LABCLIA [id number] [address] [address] [place] Anion gap [Moles/Vol] 9 mmol/L Normal 8-15 [facility] Comment on above: Order Comment: Speci men Type: BLOOD SPECIMENOrdering Facility: [facility] Address: [address] [place] [address] Performed By: #### 1 9123-9, 08390-2 ####[facility]IA [id number] [place] [address] [place] Calcium [Mass/Vol] 8.7 mg/dL Normal 8.5-10.2 [facility] Comment on above: Order Comment: Speci men Type: BLOOD SPECIMENOrdering Facility: [facility] Address: [address] [place] [address] Performed By: #### 1 9123-9, 35349-1 ####[facility] LABCLIA [id number] [place] [address] [place] Chloride [Moles/Vol] 107 mmol/L Normal 98-107 [facility] Comment on above: Order Comment: Speci men Type: BLOOD SPECIMENOrdering Facility: [facility] Address: [address] [place], [place] [address] Performed By: #### 1 9123-9, 04439-8 ####[facility]IA [id number] [place] [id number] [place] CO2 [Moles/Vol] 23 mmol/L Normal 22-30 [facility] Comment on above: Order Comment: Speci men Type: BLOOD SPECIMENOrdering Facility: [facility] Address: [address] [place], [place] [address] Performed By: #### 1 9123-9, 57897-3 ####[facility] LABIA [id number] [place] [address] [place] Creatinine [Mass/Vol] 0.48 mg/dL Low 0.58-0.96 [facility] Comment on above: Order Comment: Elfego pollock Type: BLOOD SPECIMENOrdering Facility: [facility] Address: [address] [place] [address] Performed By: #### 1 9123-9, 32052-6 ####[facility]IA [id number] [place] [address] [place] Creatinine and Glomerular filtration rate.predicted panel (S/P/Bld) 126 mL/min/1.73m??? Normal >=60 [facility] Comment on above: Order Comment: Darryl maris Type: BLOOD SPECIMENOrdering Facility: [facility] Address: [address] [place] [address] Result Comment: Desiree mated Glomerular Filtration Rate (eGFR) is calculated using the 2020 CKD-EPI creatinine equation. This equation utilizes serum creatinine, sex, and age as parameters. The creatinine assay has traceable calibration to isotope dilution-mass spectrometry. Refer to KDIGO guidelines for clinical interpretation. In patients with unstable renal function, e.g. those with acute kidney injury, the eGFR may not accurately reflect actual GFR. Performed By: #### 1 9123-9, 09047-9 ####[facility] [id number] [place] [address] [place] Glucose [Mass/Vol] 100 mg/dL High 74-99 [facility] Comment on above: Order Comment: Elfego pollock Type: BLOOD SPECIMENOrdering Facility: [facility] Address: [address] [place] [address] Result Comment: The [place] Diabetes Association (ADA) provides guidance for cutoff values for fasting glucose and random glucose. The ADA defines fasting as no caloric intake for at least 8 hours. Fasting plasma glucose results between 100 to 125 mg/dL indicate increased risk for diabetes (prediabetes).Fasting plasma glucose results greater than or equal to 126 mg/dL meet the criteria for diagnosis of diabetes. In the absence of unequivocal hyperglycemia, results should be confirmed by repeat testing. In a patient with classic symptoms of hyperglycemia or hyperglycemic crisis, random plasma glucose results greater than or equal to 200 mg/dL meet the criteria for diagnosis of diabetes.Reference: Standards of Medical Care in Diabetes 2016, [place] Diabetes Association. Diabetes Care. 2016.39(Suppl 1). Performed By: #### 1 9123-9, 00089-4 ####[facility]CL[facility] [id number] [place] [address] [place] Phosphate [Mass/Vol] 3.0 mg/dL Normal 2.7-4.8 [facility] Comment on above: Order Comment: Speci men Type: BLOOD SPECIMENOrdering Facility: [facility] Address: [address] [place] [address] Performed By: #### 1 9123-9, 37128-9 ####[facility] LABCLIA [id number] [place] [address] [place] Potassium [Moles/Vol] 3.8 mmol/L Normal 3.7-5.1 [facility] Comment on above: Order Comment: Darryli men Type: BLOOD SPECIMENOrdering Facility: [facility] Address: [address] [place] [address] Performed By: #### 1 9123-9, 29549-5 ####[facility] LABCLIA [id number] [place] [address] [place] Sodium [Moles/Vol] 139 mmol/L Normal 136-144 [facility] Comment on above: Order Comment: Speci men Type: BLOOD SPECIMENOrdering Facility: [facility] Address: [address] [place] [address] Performed By: #### 1 9123-9, 68991-8 ####[facility] LABCLIA [id number] [address] [address] [place] Urea nitrogen [Mass/Vol] 18 mg/dL Normal 7-21 [facility] Comment on above: Order Comment: Speci men Type: BLOOD SPECIMENOrdering Facility: [facility] Address: [address] [place] [address] Performed By: #### 1 9123-9, 15059-7 ####[facility] LABCLIA [id number] [place] [address] [place] 25(OH)D3 SerPl-ncon 2024 25-hydroxyvitamin D3 [Mass/Vol] 32.6 ng/mL Normal 31.0-80.0 [facility] Comment on above: Order Comment: Speci men Type: BLOOD SPECIMENOrdering Facility: [facility] Address: [address] [place] [address] Performed By: #### 1 989-3 ####[facility] LABCLIA [id number] [place] [address] [place] CBC panel Auto (Bld)on 08-05 Erythrocyte distribution width (RBC) [Ratio] 15.3 % High 11.5-15.0 [facility] Comment on above: Order Comment: Speci men Type: BLOOD SPECIMENOrdering Facility: [facility] Address: [address] [place] [address] Performed By: #### 5 8410-2 ####[facility] LABIA [id number] [place] [address] [place] Hematocrit (Bld) [Volume fraction] 31.9 % Low 36.0-46.0 [facility] Comment on above: Order Comment: Speci men Type: BLOOD SPECIMENOrdering Facility: [facility] Address: [address] [place] [address] Performed By: #### 5 8410-2 ####[facility] LABCLIA [id number] [place] [address] [place] Hemoglobin (Bld) [Mass/Vol] 10.1 g/dL Low 11.5-15.5 [facility] Comment on above: Order Comment: Speci men Type: BLOOD SPECIMENOrdering Facility: [facility] Address: [address] [place] [address] Performed By: #### 5 8410-2 ####[facility] [id number] [place] [address] [place] MCH (RBC) [Entitic mass] 27.9 pg Normal 26.0-34.0 [facility] Comment on above: Order Comment: Speci men Type: BLOOD SPECIMENOrdering Facility: [facility] Address: [address] [place] [address] Performed By: #### 5 8410-2 ####[facility] [id number] [place] [address] [place] MCHC (RBC) [Mass/Vol] 31.7 g/dL Normal 30.5-36.0 [facility] Comment on above: Order Comment: Speci men Type: BLOOD SPECIMENOrdering Facility: [facility] Address: [address] [place] [address] Performed By: #### 5 8410-2 ####[facility] [id number] [place] [address] [place] MCV (RBC) [Entitic vol] 88.1 fL Normal 80.0-100.0 [facility] Comment on above: Order Comment: Speci men Type: BLOOD SPECIMENOrdering Facility: [facility] Address: [address] [place] [address] Performed By: #### 5 8410-2 ####[facility] [id number] [place] [address] [place] Nucleated RBC (Bld) [#/Vol] 10*3/uL Normal <0.01 [facility] Comment on above: Order Comment: Speci men Type: BLOOD SPECIMENOrdering Facility: [facility] Address: [address] [place] [address] Performed By: #### 5 8410-2 ####[facility] LABCLIA [id number] [address] [address] [place] Platelet mean volume (Bld) [Entitic vol] 11.9 fL Normal 9.0-12.7 [facility] Comment on above: Order Comment: Speci men Type: BLOOD SPECIMENOrdering Facility: [facility] Address: [address] [place] [address] Performed By: #### 5 8410-2 ####[facility] LABCLIA [id number] [place] [address] [place] Platelets (Bld) [#/Vol] 215 10*3/uL Normal 150-400 [facility] Comment on above: Order Comment: Speci men Type: BLOOD SPECIMENOrdering Facility: [facility] Address: [address] [place] [address] Performed By: #### 5 8410-2 ####[facility] LABIA [id number] [place] [address] [place] RBC (Bld) [#/Vol] 3.62 10*6/uL Low 3.90-5.20 [facility] Comment on above: Order Comment: Speci men Type: BLOOD SPECIMENOrdering Facility: [facility] Address: [address] [place] [address] Performed By: #### 5 8410-2 ####[facility] LABIA [id number] [place] [address] [place] WBC (Bld) [#/Vol] 7.60 10*3/uL Normal 3.70-11.00 [facility] Comment on above: Order Comment: Speci men Type: BLOOD SPECIMENOrdering Facility: [facility] Address: [address] [place] [address] Performed By: #### 5 8410-2 ####[facility] LABIA [id number] [place] [address] [place] CONSULT PROGon 08-05-2024 CONSULT PROG Normal [facility] CONSULT PROG Normal [facility] Magnesium SerPl-mCncon 08-05 Magnesium [Mass/Vol] 1.7 mg/dL Normal 1.7-2.[address] [facility] Comment on above: Order Comment: Speci men Type: BLOOD SPECIMENOrdering Facility: [facility] Address: [address] [place] [address] Performed By: #### 1 9123-9, 79940-5 ####[facility] LABCLIA [id number] [place] [address] [place] Renal function 2000 panelon 08-05-2024 Albumin [Mass/Vol] 3.6 g/dL Low 3.9-4.9 [facility] Comment on above: Order Comment: Speci men Type: BLOOD SPECIMENOrdering Facility: [facility] Address: [address] [place] [address] Performed By: #### 1 9123-9, 03959-2 ####[facility] LABCLIA [id number] [place] [address] [place] Anion gap [Moles/Vol] 10 mmol/L Normal 8-15 [facility] Comment on above: Order Comment: Speci men Type: BLOOD SPECIMENOrdering Facility: [facility] Address: [address] [place] [address] Performed By: #### 1 9123-9, 15393-6 ####[facility] LABCLIA [id number] [place] [id number] [place] Calcium [Mass/Vol] 9.2 mg/dL Normal 8.5-10.2 [facility] Comment on above: Order Comment: Speci men Type: BLOOD SPECIMENOrdering Facility: [facility] Address: [address] [place] [address] Performed By: #### 1 9123-9, 51100-1 ####[facility] LABCLIA [id number] [place] [address] [place] Chloride [Moles/Vol] 103 mmol/L Normal 98-107 [facility] Comment on above: Order Comment: Speci men Type: BLOOD SPECIMENOrdering Facility: [facility] Address: [address] [place] [address] Performed By: #### 1 9123-9, 50980-3 ####[facility] LABCLIA [id number] [place] [address] [place] CO2 [Moles/Vol] 25 mmol/L Normal 22-30 [facility] Comment on above: Order Comment: Speci men Type: BLOOD SPECIMENOrdering Facility: [facility] Address: [address] [place] [address] Performed By: #### 1 9123-9, 68804-8 ####[facility] LABCLIA [id number] [place] [facility] Creatinine [Mass/Vol] 0.52 mg/dL Low 0.58-0.96 [facility] Comment on above: Order Comment: Speci men Type: BLOOD SPECIMENOrdering Facility: [facility] Address: [address] [place] [address] Performed By: #### 1 9123-9, 97401-3 ####[facility] LABIA [id number] [address] [place] [facility] Creatinine and Glomerular filtration rate.predicted panel (S/P/Bld) 124 mL/min/1.73m??? Normal >=60 [facility] Comment on above: Order Comment: Speci men Type: BLOOD SPECIMENOrdering Facility: [facility] Address: [address] [place] [address] Result Comment: Desiree mated Glomerular Filtration Rate (eGFR) is calculated using the 2020 CKD-EPI creatinine equation. This equation utilizes serum creatinine, sex, and age as parameters. The creatinine assay has traceable calibration to isotope dilution-mass spectrometry. Refer to KDIGO guidelines for clinical interpretation. In patients with unstable renal function, e.g. those with acute kidney injury, the eGFR may not accurately reflect actual GFR. Performed By: #### 1 9123-9, 36457-7 ####[facility] LABCLIA [id number] [place] [address] [place] Glucose [Mass/Vol] 76 mg/dL Normal 74-99 [facility] Comment on above: Order Comment: Speci men Type: BLOOD SPECIMENOrdering Facility: [facility] Address: [address] [place] [address] Result Comment: The [place] Diabetes Association (ADA) provides guidance for cutoff values for fasting glucose and random glucose. The ADA defines fasting as no caloric intake for at least 8 hours. Fasting plasma glucose results between 100 to 125 mg/dL indicate increased risk for diabetes (prediabetes).Fasting plasma glucose results greater than or equal to 126 mg/dL meet the criteria for diagnosis of diabetes. In the absence of unequivocal hyperglycemia, results should be confirmed by repeat testing. In a patient with classic symptoms of hyperglycemia or hyperglycemic crisis, random plasma glucose results greater than or equal to 200 mg/dL meet the criteria for diagnosis of diabetes.Reference: Standards of Medical Care in Diabetes 2016, [place] Diabetes Association. Diabetes Care. 2016.39(Suppl 1). Performed By: #### 1 9123-9, 41623-9 ####[facility] LABCLIA [id number] [address] [address] [place] Phosphate [Mass/Vol] 3.6 mg/dL Normal 2.7-4.8 [facility] Comment on above: Order Comment: Darryli men Type: BLOOD SPECIMENOrdering Facility: [facility] Address: [address] [place] [address] Performed By: #### 1 9123-9, 16930-3 ####[facility] LABIA [id number] [address] [address] [place] Potassium [Moles/Vol] 4.0 mmol/L Normal 3.7-5.1 [facility] Comment on above: Order Comment: Speci men Type: BLOOD SPECIMENOrdering Facility: [facility] Address: [address] [place] [address] Performed By: #### 1 9123-9, 25078-8 ####[facility] LABCLIA [id number] [place] [id number] [place] Sodium [Moles/Vol] 138 mmol/L Normal 136-144 [facility] Comment on above: Order Comment: Speci men Type: BLOOD SPECIMENOrdering Facility: [facility] Address: [address] [place] [address] Performed By: #### 1 9123-9, 46635-8 ####[facility] LABCLIA [id number] [place] [address] [place] Urea nitrogen [Mass/Vol] 20 mg/dL Normal 7-21 [facility] Comment on above: Order Comment: Speci men Type: BLOOD SPECIMENOrdering Facility: [facility] Address: [address] [place] [address] Performed By: #### 1 9123-9, 78067-9 ####[facility] LABCLIA [id number] [place] [address] [place] CASE MANAGEMon 08-04-2024 CASE MANAGEM Normal [facility] CHROMIUM BLOODon 08-04-2024 Chromium (Bld) [Mass/Vol] 0.8 ug/L High <0.6 [facility] Comment on above: Order Comment: Speci men Type: BLOOD SPECIMENOrdering Facility: [facility] Address: [address] [place] [address] Result Comment: This test was developed, and its performance characteristics determined by the [facility] Department of Pathology and Laboratory Medicine. It has not been cleared or approved by the FDA. The [facility] Department of Pathology and Laboratory Medicine is regulated under CLIA as qualified to perform high-complexity testing. This test is used for clinical purposes. It should not be regarded as investigational or for research. Performed By: #### Salomon LYONS, CHROM ####[facility] LABCLIA [id number] [place] [address] [place] CONSULT PROGon 08-04-2024 CONSULT PROG Normal [facility] CONSULT PROG Normal [facility] COPPER BLOODon 08-04-2024 Copper [Mass/Vol] 130 ug/dL Normal 80-155 [facility] Comment on above: Order Comment: Speci men Type: BLOOD SPECIMENOrdering Facility: [facility] Address: [address] [place] [address] Result Comment: This test was developed, and its performance characteristics determined by the [facility] Department of Pathology and Laboratory Medicine. It has not been cleared or approved by the FDA. The [facility] Department of Pathology and Laboratory Medicine is regulated under CLIA as qualified to perform high-complexity testing. This test is used for clinical purposes. It should not be regarded as investigational or for research. Performed By: #### 5 763-8, COPPER ####[facility] LABCLIA [id number] [place] [address] [place] CRP SerPl-mCncon 08-04-2024 CRP [Mass/Vol] mg/L Normal <0.9 [facility] Comment on above: Order Comment: Speci men Type: BLOOD SPECIMENOrdering Facility: [facility] Address: [address] [place] [address] Performed By: #### 1 9123-9, 93622-4, 1987-11 ####[facility] LABIA [id number] [place] [address] [place] FATTY ACIDS PROFILE, ESSENTI Tucker 08-04-2024 A-LINOLENIC ACID, C18 3W3 35 nmol/mL Normal 20-200 [facility] Comment on above: Order Comment: Speci men Type: BLOOD SPECIMENOrdering Facility: [facility] Address: [address] [place] [address] Performed By: #### C FAPRO ####[facility]ENTERIA [id number] [place] [address] ARACHIDIC ACID, C20 0 20 nmol/mL Normal 8-43 [facility] Comment on above: Order Comment: Speci men Type: BLOOD SPECIMENOrdering Facility: [facility] Address: [address] [place] [address] Performed By: #### C FAPRO ####[facility] [id number] [place] [address] ARACHIDONIC ACID, C20 4W6 889 nmol/mL Normal 310-1420 [facility] Comment on above: Order Comment: Speci men Type: BLOOD SPECIMENOrdering Facility: [facility] Address: [address] [place] [address] Performed By: #### C FAPRO ####[facility] [id number] [place] [address] DHA, C22 6W3 205 nmol/mL Normal 45-365 [facility] Comment on above: Order Comment: Speci men Type: BLOOD SPECIMENOrdering Facility: [facility] Address: [address] [place] [address] Performed By: #### C FAPRO ####[facility] [id number] [place] [address] DOCOSENOIC ACID, C22 1 4 nmol/mL Normal 1-10 [facility] Comment on above: Order Comment: Speci men Type: BLOOD SPECIMENOrdering Facility: [facility] Address: [address] [place] [address] Performed By: #### C FAPRO ####[facility] [id number] [place] [address] DPA, C22 5W3 51 nmol/mL Normal 13-75 [facility] Comment on above: Order Comment: Speci men Type: BLOOD SPECIMENOrdering Facility: [facility] Address: [address] [place] [address] Performed By: #### C FAPRO ####[facility] [id number] [place] [address] DPA, C22 5W6 29 nmol/mL Normal 6-55 [facility] Comment on above: Order Comment: Speci men Type: BLOOD SPECIMENOrdering Facility: [facility] Address: [address] [place] [address] Performed By: #### C FAPRO ####[facility] [id number] [place] [address] DTA, C22 4W6 25 nmol/mL Normal 10-40 [facility] Comment on above: Order Comment: Speci men Type: BLOOD SPECIMENOrdering Facility: [facility] Address: [address] [place] [address] Performed By: #### C FAPRO ####[facility] [id number] [place] [address] EER FATTY ACIDS PROF, ESSENTIAL SP See Note Normal [facility] Comment on above: Order Comment: Speci men Type: BLOOD SPECIMENOrdering Facility: [facility] Address: [address] [place] [address] Result Comment: Auth orized individuals can access the [facility] Enhanced Reportwith an [facility] Connect account using the following link.Your local lab can assist you in obtaining the patientreport if you don't have a Connect account.[email or web address] By: NENITA [address] [place], [place] [email or web address] Director: Hugo Ramsey MD, PhDCLIA Number: [id number] Performed By: #### C FAPRO ####[facility]CLIA [id number] [place] [address] EPA, C20 5W3 144 nmol/mL High 8-130 [facility] Comment on above: Order Comment: Speci men Type: BLOOD SPECIMENOrdering Facility: [facility] Address: [address] [place] [address] Performed By: #### C FAPRO ####[facility]CL[facility] [id number] [place] [address] G-LINOLENIC ACID, C18 3W6 92 nmol/mL Normal 10-120 [facility] Comment on above: Order Comment: Speci men Type: BLOOD SPECIMENOrdering Facility: [facility] Address: [address] [place] [address] Performed By: #### C FAPRO ####[facility] [id number] [place] [address] D-R-MJFRIFCCF C20:3W6 124 nmol/mL Normal 45-340 [facility] Comment on above: Order Comment: Speci men Type: BLOOD SPECIMENOrdering Facility: [facility] Address: [address] [place] [address] Performed By: #### C FAPRO ####[facility]IONCLIA [id number] [place] [address] HEXADECENOIC ACID, C16 1W9 44 nmol/mL Normal 14-95 [facility] Comment on above: Order Comment: Speci men Type: BLOOD SPECIMENOrdering Facility: [facility] Address: [address] [place] [address] Performed By: #### C FAPRO ####[facility]CLIA [id number] [place] [address] INTERPRETATION, FATTY ACID PROFILE See Note Normal [facility] Comment on above: Order Comment: Speci men Type: BLOOD SPECIMENOrdering Facility: [facility] Address: [address] [place] [address] Result Comment: In t his sample the concentration of omega-3 eicosapentaenoic acid(EPA) was mildly elevated suggesting dietary supplements.Results reviewed and interpreted by Herlinda Gillespie, PhD, [facility] CENTERINTERPRETIVE INFORMATION: Fatty Acids Profile, Essential Ser/PlasThis test does not screen for disorders of peroxisomalbiogenesis/function.This test was developed and its performance characteristicsdetermined by [employer]. It has not been cleared orapproved by the [place] Food and Drug Administration. This test wasperformed in a CLIA certified laboratory and is intended forclinical purposes. Performed By: #### C FAPRO ####[facility]IESCLIA [id number] [place] [address] LAURIC ACID, C12 0 2 nmol/mL Normal 1-200 [facility] Comment on above: Order Comment: Speci men Type: BLOOD SPECIMENOrdering Facility: [facility] Address: [address] [place] [id number] Performed By: #### C FAPRO ####[facility]IESCLIA [id number] [place] [address] LINOLEIC ACID, C18 2W6 1915 nmol/mL Normal 5192-9031 [facility] Comment on above: Order Comment: Speci men Type: BLOOD SPECIMENOrdering Facility: [facility] Address: [address] [place] [address] Performed By: #### C FAPRO ####[facility]IESCLIA [id number] [place] [address] MEAD ACID, C20 3W9 10 nmol/mL Normal 1-35 [facility] Comment on above: Order Comment: Speci men Type: BLOOD SPECIMENOrdering Facility: [facility] Address: [address] [place] [address] Performed By: #### C FAPRO ####[facility]IESCLIA [id number] [place] [address] MYRISTIC ACID, C14 0 113 nmol/mL Normal 20-520 [facility] Comment on above: Order Comment: Speci men Type: BLOOD SPECIMENOrdering Facility: [facility] Address: [address] [place] [address] Performed By: #### C FAPRO ####[facility]CL[facility] [id number] [place] [address] NERVONIC ACID, C24 1W9 112 nmol/mL Normal 35-145 [facility] Comment on above: Order Comment: Speci men Type: BLOOD SPECIMENOrdering Facility: [facility] Address: [address] [place] [id number] Performed By: #### C FAPRO ####[facility]IESCLIA [id number] [place] [address] OLEIC ACID, C18 1W9 2076 nmol/mL Normal 740-3900 [facility] Comment on above: Order Comment: Speci men Type: BLOOD SPECIMENOrdering Facility: [facility] Address: [address], [place] [address] Performed By: #### C FAPRO ####[facility]IESCLIA [id number] [place] [address] PALMITIC ACID, C16 0 2897 nmol/mL Normal 2093-7234 [facility] Comment on above: Order Comment: Speci men Type: BLOOD SPECIMENOrdering Facility: [facility] Address: [address] [place], [place] [address] Performed By: #### C FAPRO ####[facility]IESCLIA [id number] [place] [address] PALMITOLEIC ACID, C16 1W7 389 nmol/mL Normal 35-580 [facility] Comment on above: Order Comment: Speci men Type: BLOOD SPECIMENOrdering Facility: [facility] [facility] Address: [address] [place] [address] Performed By: #### C FAPRO ####[facility]OR[facility]IESCLIA [id number] [place] [address] STEARIC ACID, C18 0 607 nmol/mL Normal 280-1250 [facility] Comment on above: Order Comment: Speci men Type: BLOOD SPECIMENOrdering Facility: [facility] Address: [address] [place] [address] Performed By: #### C FAPRO ####[facility]OR[facility]IESCLIA [id number] [place] [address] TOTAL FATTY ACIDS 10.0 mmol/L Normal 4.5-15.0 [facility] Comment on above: Order Comment: Speci men Type: BLOOD SPECIMENOrdering Facility: [facility] Address: [address] [place] [address] Performed By: #### C FAPRO ####[facility]IESCLIA [id number] [place] [address] TOTAL MONOUNSATURATED ACIDS 2.8 mmol/L Normal 0.9-4.7 [facility] Comment on above: Order Comment: Speci men Type: BLOOD SPECIMENOrdering Facility: [facility] Address: [address] [place], [place] [address] Performed By: #### C FAPRO ####[facility]ORATORIESCLIA [id number] [place] [address] TOTAL POLYUNSATURATED ACIDS 3.5 mmol/L Normal 2.1-6.2 [facility] Comment on above: Order Comment: Speci men Type: BLOOD SPECIMENOrdering Facility: [facility] Address: [address] [place] [address] Performed By: #### C FAPRO ####[facility]ORATORIESCLIA [id number] [place] [address] TOTAL SATURATED ACIDS 3.6 mmol/L Normal 1.5-5.3 [facility] Comment on above: Order Comment: Speci men Type: BLOOD SPECIMENOrdering Facility: [facility] Address: [address] [place] [address] Performed By: #### C FAPRO ####[facility]ORATORIESCLIA [id number] [place] [address] TOTAL W3 0.44 mmol/L Normal 0.12-0.55 [facility] Comment on above: Order Comment: Speci men Type: BLOOD SPECIMENOrdering Facility: [facility] Address: [address] [place] [address] Performed By: #### C FAPRO ####[facility]IESCLIA [id number] [place] [address] TOTAL W6 3.1 mmol/L Normal 1.8-5.7 [facility] Comment on above: Order Comment: Speci men Type: BLOOD SPECIMENOrdering Facility: [facility] Address: [address] [place] [address] Performed By: #### C FAPRO ####[facility]ORATORIESCLIA [id number] [place] [address] TRIENE/TETRAENE RATIO 0.011 Normal 0.004-0.051 [facility] Comment on above: Order Comment: Speci men Type: BLOOD SPECIMENOrdering Facility: [facility] Address: [address] [place] [address] Performed By: #### C FAPRO ####[facility]ORATORIESCLIA [id number] [place] [address] VACCENIC ACID, C18 1W7 200 nmol/mL Normal 50-250 [facility] Comment on above: Order Comment: Speci men Type: BLOOD SPECIMENOrdering Facility: [facility] Address: [address] [place] [address] Performed By: #### C FAPRO ####[facility]ORATORIESCLIA [id number] [place] [address] MANGANESE BLDon 08-04-2024 Manganese (Bld) [Mass/Vol] 7.3 ug/L Normal 4.4-15.2 [facility] Comment on above: Order Comment: Speci men Type: BLOOD SPECIMENOrdering Facility: [facility] Address: [address] [place] [address] Result Comment: This test was developed, and its performance characteristics determined by the [facility] Department of Pathology and Laboratory Medicine. It has not been cleared or approved by the FDA. The [facility] Department of Pathology and Laboratory Medicine is regulated under CLIA as qualified to perform high-complexity testing. This test is used for clinical purposes. It should not be regarded as investigational or for research. Performed By: #### M SERENA, CHROM ####[facility] LABCLIA [id number] [place] [address] [place] Magnesium SerPl-mCncon 08-04 Magnesium [Mass/Vol] 1.9 mg/dL Normal 1.7-2.[address] [facility] Comment on above: Order Comment: Speci men Type: BLOOD SPECIMENOrdering Facility: [facility] Address: [address] [place] [address] Performed By: #### 1 9123-9, 02907-5, 1987-11 ####[facility] LABCLIA [id number] [place] [address] [place] NURSING PROGon 08-04-2024 NURSING PROG Normal [facility] Renal function 2000 panelon 08-04-2024 Albumin [Mass/Vol] 3.4 g/dL Low 3.9-4.9 [facility] Comment on above: Order Comment: Speci men Type: BLOOD SPECIMENOrdering Facility: [facility] Address: [address] [place] [address] Performed By: #### 1 9123-9, , 1987-11 ####[facility] LABCLIA [id number] [address] [address] [place] Anion gap [Moles/Vol] 6 mmol/L Low 8-15 [facility] Comment on above: Order Comment: Speci men Type: BLOOD SPECIMENOrdering Facility: [facility] Address: [address] [place], [place] [address] Performed By: #### 1 9123-9, , 1987-11 ####[facility] LABCLIA [id number] [address] [address] [place] Calcium [Mass/Vol] 9.5 mg/dL Normal 8.5-10.2 [facility] Comment on above: Order Comment: Speci men Type: BLOOD SPECIMENOrdering Facility: [facility] Address: [address] [place], [place] [address] Performed By: #### 1 9123-9, , 1987-11 ####[facility] LABCLIA [id number] [place] [id number] [place] Chloride [Moles/Vol] 103 mmol/L Normal 98-107 [facility] Comment on above: Order Comment: Speci men Type: BLOOD SPECIMENOrdering Facility: [facility] Address: [address] [place] [address] Performed By: #### 1 9123-9, , 1987-11 ####[facility] LABCLIA [id number] [address] [address] [place] CO2 [Moles/Vol] 30 mmol/L Normal 22-30 [facility] Comment on above: Order Comment: Speci men Type: BLOOD SPECIMENOrdering Facility: [facility] Address: [address] [place] [address] Performed By: #### 1 9123-9, 61109-7, 1987-11 ####[facility] LABIA [id number] [address] [address] [place] Creatinine [Mass/Vol] 0.53 mg/dL Low 0.58-0.96 [facility] Comment on above: Order Comment: Specroby pollock Type: BLOOD SPECIMENOrdering Facility: [facility] Address: [address] [place] [address] Performed By: #### 1 9123-9, 21911-1, 1987-11 ####[facility] LABIA [id number] [place] [address] [place] Creatinine and Glomerular filtration rate.predicted panel (S/P/Bld) 123 mL/min/1.73m??? Normal >=60 [facility] Comment on above: Order Comment: Elfego pollock Type: BLOOD SPECIMENOrdering Facility: [facility] Address: [address] [place] [address] Result Comment: Desiree mated Glomerular Filtration Rate (eGFR) is calculated using the 2020 CKD-EPI creatinine equation. This equation utilizes serum creatinine, sex, and age as parameters. The creatinine assay has traceable calibration to isotope dilution-mass spectrometry. Refer to KDIGO guidelines for clinical interpretation. In patients with unstable renal function, e.g. those with acute kidney injury, the eGFR may not accurately reflect actual GFR. Performed By: #### 1 9123-9, 82524-8, 1987-11 ####[facility] LABIA [id number] [place] [id number] [place] Glucose [Mass/Vol] 75 mg/dL Normal 74-99 [facility] Comment on above: Order Comment: Darryli men Type: BLOOD SPECIMENOrdering Facility: [facility] Address: [address] [place] [address] Result Comment: The [place] Diabetes Association (ADA) provides guidance for cutoff values for fasting glucose and random glucose. The ADA defines fasting as no caloric intake for at least 8 hours. Fasting plasma glucose results between 100 to 125 mg/dL indicate increased risk for diabetes (prediabetes).Fasting plasma glucose results greater than or equal to 126 mg/dL meet the criteria for diagnosis of diabetes. In the absence of unequivocal hyperglycemia, results should be confirmed by repeat testing. In a patient with classic symptoms of hyperglycemia or hyperglycemic crisis, random plasma glucose results greater than or equal to 200 mg/dL meet the criteria for diagnosis of diabetes.Reference: Standards of Medical Care in Diabetes 2016, [place] [employer]. Diabetes Care. 2016.39(Suppl 1). Performed By: #### 1 9123-9, , 1987-11 ####[facility] LABCLIA [id number] [place] [address] [place] Phosphate [Mass/Vol] 4.1 mg/dL Normal 2.7-4.8 [facility] Comment on above: Order Comment: Speci men Type: BLOOD SPECIMENOrdering Facility: [facility] Address: [address] [place] [address] Performed By: #### 1 91239, , 1987-11 ####[facility] LABCLIA [id number] [place] [address] [place] Potassium [Moles/Vol] 4.2 mmol/L Normal 3.7-5.1 [facility] Comment on above: Order Comment: Speci men Type: BLOOD SPECIMENOrdering Facility: [facility] Address: [address] [place] [address] Performed By: #### 1 91239, , 1987-11 ####[facility] LABCLIA [id number] [address] [address] [place] Sodium [Moles/Vol] 139 mmol/L Normal 136-144 [facility] Comment on above: Order Comment: Speci men Type: BLOOD SPECIMENOrdering Facility: [facility] Address: [address] [place] [address] Performed By: #### 1 9123-9, , 1987-11 ####[facility] LABCLIA [id number] [place] [address] [place] Urea nitrogen [Mass/Vol] 17 mg/dL Normal 7-21 [facility] Comment on above: Order Comment: Speci men Type: BLOOD SPECIMENOrdering Facility: [facility] Address: [address] [place] [address] Performed By: #### 1 9123-9, 00201-6, 1987-11 ####[facility]PITALIA [id number] [place] [address] [place] Selenium Bld-mCncon 08-04-19 25 Selenium (Bld) [Mass/Vol] 125.3 ug/L Normal 58.0-234.0 [facility] Comment on above: Order Comment: Speci men Type: BLOOD SPECIMENOrdering Facility: [facility] Address: [address] [place] [address] Result Comment: This test was developed, and its performance characteristics determined by the [facility] Department of Pathology and Laboratory Medicine. It has not been cleared or approved by the FDA. The [facility] Department of Pathology and Laboratory Medicine is regulated under CLIA as qualified to perform high-complexity testing. This test is used for clinical purposes. It should not be regarded as investigational or for research. Performed By: #### 5 722-4 ####[facility] [id number] [place] [address] [place] Zinc SerPl-mCncon 08-04-2024 Zinc [Mass/Vol] 48 ug/dL Low 60-120 [facility] Comment on above: Order Comment: Speci men Type: BLOOD SPECIMENOrdering Facility: [facility] Address: [address] [place] [address] Result Comment: This test was developed, and its performance characteristics determined by the [facility] Department of Pathology and Laboratory Medicine. It has not been cleared or approved by the FDA. The [facility] Department of Pathology and Laboratory Medicine is regulated under CLIA as qualified to perform high-complexity testing. This test is used for clinical purposes. It should not be regarded as investigational or for research. Performed By: #### 5 763-8, COPPER ####[facility] LABIA [id number] [place] [address] [place] CASE MANAGEMon 08-03-2024 CASE MANAGEM Normal [facility] CBC panel Auto (Bld)on 08-03 Erythrocyte distribution width (RBC) [Ratio] 15.3 % High 11.5-15.0 [facility] Comment on above: Order Comment: Speci men Type: BLOOD SPECIMENOrdering Facility: [facility] Address: [address] [place] [address] Performed By: #### 5 8410-2 ####[facility] LABIA [id number] [place] [address] [place] Hematocrit (Bld) [Volume fraction] 34.0 % Low 36.0-46.0 [facility] Comment on above: Order Comment: Speci men Type: BLOOD SPECIMENOrdering Facility: [facility] Address: [address] [place] [address] Performed By: #### 5 8410-2 ####[facility] LABIA [id number] [place] [address] [place] Hemoglobin (Bld) [Mass/Vol] 11.0 g/dL Low 11.5-15.5 [facility] Comment on above: Order Comment: Speci men Type: BLOOD SPECIMENOrdering Facility: [facility] Address: [address] [place] [address] Performed By: #### 5 8410-2 ####[facility] LABIA [id number] [place] [address] [place] MCH (RBC) [Entitic mass] 27.6 pg Normal 26.0-34.0 [facility] Comment on above: Order Comment: Speci men Type: BLOOD SPECIMENOrdering Facility: [facility] Address: [address] [place] [address] Performed By: #### 5 8410-2 ####[facility] LABCLIA [id number] [place] [address] [place] MCHC (RBC) [Mass/Vol] 32.4 g/dL Normal 30.5-36.0 [facility] Comment on above: Order Comment: Speci men Type: BLOOD SPECIMENOrdering Facility: [facility] Address: [address] [place] [address] Performed By: #### 5 8410-2 ####[facility] LABIA [id number] [place] [address] [place] MCV (RBC) [Entitic vol] 85.2 fL Normal 80.0-100.0 [facility] Comment on above: Order Comment: Speci men Type: BLOOD SPECIMENOrdering Facility: [facility] Address: [address] [place] [address] Performed By: #### 5 8410-2 ####[facility] LABIA [id number] [place] [address] [place] Nucleated RBC (Bld) [#/Vol] 10*3/uL Normal <0.01 [facility] Comment on above: Order Comment: Speci men Type: BLOOD SPECIMENOrdering Facility: [facility] Address: [address] [place] [address] Performed By: #### 5 8410-2 ####[facility] LABIA [id number] [place] [address] [place] Platelet mean volume (Bld) [Entitic vol] 10.7 fL Normal 9.0-12.7 [facility] Comment on above: Order Comment: Speci men Type: BLOOD SPECIMENOrdering Facility: [facility] Address: [address] [place] [address] Performed By: #### 5 8410-2 ####[facility] LABIA [id number] [place] [address] [place] Platelets (Bld) [#/Vol] 234 10*3/uL Normal 150-400 [facility] Comment on above: Order Comment: Speci men Type: BLOOD SPECIMENOrdering Facility: [facility] Address: [address] [place] [address] Performed By: #### 5 8410-2 ####[facility] LABCLIA [id number] [place] [address] [place] RBC (Bld) [#/Vol] 3.99 10*6/uL Normal 3.90-5.20 [facility] Comment on above: Order Comment: Speci men Type: BLOOD SPECIMENOrdering Facility: [facility] Address: [address] [place] [address] Performed By: #### 5 8410-2 ####[facility] LABCLIA [id number] [place] [address] [place] WBC (Bld) [#/Vol] 5.71 10*3/uL Normal 3.70-11.00 [facility] Comment on above: Order Comment: Speci men Type: BLOOD SPECIMENOrdering Facility: [facility] Address: [address] [place] [address] Performed By: #### 5 8410-2 ####[facility] LABCLIA [id number] [place] [address] [place] CONSULT PROGon 08-03-2024 CONSULT PROG Normal [facility] CONSULT PROG Normal [facility] CONSULT PROG Normal [facility] CRP SerPl-mCncon 08-03-2024 CRP [Mass/Vol] 0.5 mg/dL Normal <0.9 [facility] Comment on above: Order Comment: Speci men Type: BLOOD SPECIMENOrdering Facility: [facility] Address: [address] [place] [address] Performed By: #### 2 4362-6, 21367-8, 2143-6, 1987- ####[facility] LABCLIA [id number] [place] [address] [place] Cortis SerPl-mCncon 08-03-19 Cortisol [Mass/Vol] 5.2 ug/dL Normal 4.8-19.5 [facility] Comment on above: Order Comment: Speci men Type: BLOOD SPECIMENOrdering Facility: [facility] Address: [address] [place] [address] Result Comment: Prov ided reference range is from 6-10 AM sample collection time.Cortisol Reference Range: 6-10 AM = 4.8-19.5 ug/dL, 4-8 PM = 2.5-11.9 ug/dL Performed By: #### 2 436-6, , 2142-12, 1987-11 ####[facility] LABCLIA [id number] [place] [address] [place] ECG COMPLETEon 08-03-2024 ECG COMPLETE Normal [facility] Magnesium SerPl-ncon 08-03 Magnesium [Mass/Vol] 2.3 mg/dL Normal 1.7-2.3 [facility] Comment on above: Order Comment: Speci men Type: BLOOD SPECIMENOrdering Facility: [facility] Address: [address] [place] [address] Performed By: #### 2 4362-6, , 2142-12, 1987-11 ####[facility] LABCLIA [id number] [place] [address] [place] Renal function 2000 panelon 08-03-2024 Albumin [Mass/Vol] 3.5 g/dL Low 3.9-4.9 [facility] Comment on above: Order Comment: Speci men Type: BLOOD SPECIMENOrdering Facility: [facility] Address: [address] [place] [address] Performed By: #### 2 4362-6, , 2142-12, 1987-11 ####[facility] LABCLIA [id number] [place] [address] [place] Anion gap [Moles/Vol] 10 mmol/L Normal 8-15 [facility] Comment on above: Order Comment: Speci men Type: BLOOD SPECIMENOrdering Facility: [facility] Address: [address] [place], [place] [address] Performed By: #### 2 436-6, , 2142-12, 1987-11 ####[facility] LABCLIA [id number] [place] [id number] [place] Calcium [Mass/Vol] 9.2 mg/dL Normal 8.5-10.2 [facility] Comment on above: Order Comment: Speci men Type: BLOOD SPECIMENOrdering Facility: [facility] Address: [address] [place] [address] Performed By: #### 2 4366, , 2142-12, 1987-11 ####[facility] LABCLIA [id number] [place] [id number] [place] Chloride [Moles/Vol] 100 mmol/L Normal 98-107 [facility] Comment on above: Order Comment: Speci men Type: BLOOD SPECIMENOrdering Facility: [facility] Address: [address] [place], [place] [address] Performed By: #### 2 436-6, , 2142-12, 1987-11 ####[facility] LABCLIA [id number] [place] [id number] [place] CO2 [Moles/Vol] 28 mmol/L Normal 22-30 [facility] Comment on above: Order Comment: Speci men Type: BLOOD SPECIMENOrdering Facility: [facility] Address: [address] [place], [place] [address] Performed By: #### 2 436-6, , 2142-12, 1987-11 ####[facility] LABCLIA [id number] [address] [address] [place] Creatinine [Mass/Vol] 0.56 mg/dL Low 0.58-0.96 [facility] Comment on above: Order Comment: Elfego pollock Type: BLOOD SPECIMENOrdering Facility: [facility] Address: [address] [place] [id number] Performed By: #### 2 4362-6, , 2142-12, 1987-11 ####[facility] LABCLIA [id number] [place] [id number] [facility] Creatinine and Glomerular filtration rate.predicted panel (S/P/Bld) 121 mL/min/1.73m??? Normal >=60 [facility] Comment on above: Order Comment: Elfego pollock Type: BLOOD SPECIMENOrdering Facility: [facility] Address: [address] [place] [address] Result Comment: Desiree mated Glomerular Filtration Rate (eGFR) is calculated using the 2020 CKD-EPI creatinine equation. This equation utilizes serum creatinine, sex, and age as parameters. The creatinine assay has traceable calibration to isotope dilution-mass spectrometry. Refer to KDIGO guidelines for clinical interpretation. In patients with unstable renal function, e.g. those with acute kidney injury, the eGFR may not accurately reflect actual GFR. Performed By: #### 2 4362-6, , 2142-12, 1987-11 ####[facility] LABCLIA [id number] [address] [address] [place] Glucose [Mass/Vol] 99 mg/dL Normal 74-99 [facility] Comment on above: Order Comment: Elfego pollock Type: BLOOD SPECIMENOrdering Facility: [facility] Address: [address] [place], [place] [address] Result Comment: The [place] Diabetes Association (ADA) provides guidance for cutoff values for fasting glucose and random glucose. The ADA defines fasting as no caloric intake for at least 8 hours. Fasting plasma glucose results between 100 to 125 mg/dL indicate increased risk for diabetes (prediabetes).Fasting plasma glucose results greater than or equal to 126 mg/dL meet the criteria for diagnosis of diabetes. In the absence of unequivocal hyperglycemia, results should be confirmed by repeat testing. In a patient with classic symptoms of hyperglycemia or hyperglycemic crisis, random plasma glucose results greater than or equal to 200 mg/dL meet the criteria for diagnosis of diabetes.Reference: Standards of Medical Care in Diabetes 2016, [place] [employer]. Diabetes Care. 2016.39(Suppl 1). Performed By: #### 2 4362-6, , 2142-12, 1987-11 ####[facility] LABCLIA [id number] [address] [address] [place] Phosphate [Mass/Vol] 4.6 mg/dL Normal 2.7-4.8 [facility] Comment on above: Order Comment: Speci men Type: BLOOD SPECIMENOrdering Facility: [facility] Address: [address] [place] [address] Performed By: #### 2 4366, , 2142-12, 1987-11 ####[facility] LABIA [id number] [place] [id number] [place] Potassium [Moles/Vol] 4.3 mmol/L Normal 3.7-5.1 [facility] Comment on above: Order Comment: Speci men Type: BLOOD SPECIMENOrdering Facility: [facility] Address: [address] [place] [address] Performed By: #### 2 4366, , 2142-12, 1987-11 ####[facility] LABIA [id number] [place] [id number] [place] Sodium [Moles/Vol] 138 mmol/L Normal 136-144 [facility] Comment on above: Order Comment: Speci men Type: BLOOD SPECIMENOrdering Facility: [facility] Address: [address] [place] [address] Performed By: #### 2 436-6, , 2142-12, 1987-11 ####[facility] LABIA [id number] [address] [address] [place] Urea nitrogen [Mass/Vol] 15 mg/dL Normal 7-21 [facility] Comment on above: Order Comment: Speci men Type: BLOOD SPECIMENOrdering Facility: [facility] Address: [address] [place] [address] Performed By: #### 2 4362-6, 15813-6, 2143-6, 1987- ####[facility] LABCLIA [id number] [place] [address] [place] CBC panel Auto (Bld)on 08-02 Erythrocyte distribution width (RBC) [Ratio] 15.2 % High 11.5-15.0 [facility] Comment on above: Order Comment: Speci men Type: BLOOD SPECIMENOrdering Facility: [facility] Address: [address] [place] [address] Performed By: #### 5 8410-2 ####[facility] LABCLIA [id number] [address] [place] Hematocrit (Bld) [Volume fraction] 33.5 % Low 36.0-46.0 [facility] Comment on above: Order Comment: Speci men Type: BLOOD SPECIMENOrdering Facility: [facility] Address: [address] [place] [address] Performed By: #### 5 8410-2 ####[facility] LABCLIA [id number] [place] Hemoglobin (Bld) [Mass/Vol] 11.0 g/dL Low 11.5-15.5 [facility] Comment on above: Order Comment: Speci men Type: BLOOD SPECIMENOrdering Facility: [facility] Address: [address] [place] [address] Performed By: #### 5 8410-2 ####[facility] LABCLIA [id number] [place] [address] [place] MCH (RBC) [Entitic mass] 28.1 pg Normal 26.0-34.0 [facility] Comment on above: Order Comment: Speci men Type: BLOOD SPECIMENOrdering Facility: [facility] Address: [address] [place] [address] Performed By: #### 5 8410-2 ####[facility] LABIA [id number] [place] [address] [place] MCHC (RBC) [Mass/Vol] 32.8 g/dL Normal 30.5-36.0 [facility] Comment on above: Order Comment: Speci men Type: BLOOD SPECIMENOrdering Facility: [facility] Address: [address] [place] [address] Performed By: #### 5 8410-2 ####[facility] [id number] [place] [address] [place] MCV (RBC) [Entitic vol] 85.7 fL Normal 80.0-100.0 [facility] Comment on above: Order Comment: Speci men Type: BLOOD SPECIMENOrdering Facility: [facility] Address: [address] [place] [address] Performed By: #### 5 8410-2 ####[facility] [id number] [place] [address] [place] Nucleated RBC (Bld) [#/Vol] 10*3/uL Normal <0.01 [facility] Comment on above: Order Comment: Speci men Type: BLOOD SPECIMENOrdering Facility: [facility] Address: [address] [place] [address] Performed By: #### 5 8410-2 ####[facility] [id number] [place] [address] [place] Platelet mean volume (Bld) [Entitic vol] 11.0 fL Normal 9.0-12.7 [facility] Comment on above: Order Comment: Speci men Type: BLOOD SPECIMENOrdering Facility: [facility] Address: [address] [place] [address] Performed By: #### 5 8410-2 ####[facility] LABCLIA [id number] [place] [address] [place] Platelets (Bld) [#/Vol] 218 10*3/uL Normal 150-400 [facility] Comment on above: Order Comment: Speci men Type: BLOOD SPECIMENOrdering Facility: [facility] Address: [address] [place] [address] Performed By: #### 5 8410-2 ####[facility] LABIA [id number] [place] [address] [place] RBC (Bld) [#/Vol] 3.91 10*6/uL Normal 3.90-5.20 [facility] Comment on above: Order Comment: Speci men Type: BLOOD SPECIMENOrdering Facility: [facility] Address: [address] [place] [address] Performed By: #### 5 8410-2 ####[facility] LABIA [id number] [place] [address] [place] WBC (Bld) [#/Vol] 5.37 10*3/uL Normal 3.70-11.00 [facility] Comment on above: Order Comment: Speci men Type: BLOOD SPECIMENOrdering Facility: [facility] Address: [address] [place] [address] Performed By: #### 5 8410-2 ####[facility] LABIA [id number] [place] [address] [place] CONSULTon 08-02-2024 CONSULT Normal [facility] CONSULT PROGon 08-02-2024 CONSULT PROG Normal [facility] CONSULT PROG Normal [facility] Magnesium SerPl-mCncon 08-02 Magnesium [Mass/Vol] 2.2 mg/dL Normal 1.7-2.3 [facility] Comment on above: Order Comment: Speci men Type: BLOOD SPECIMENOrdering Facility: [facility] Address: [address] [id number] Performed By: #### 2 4362-6, ####[facility] LABCLIA [id number] [address] [address] [place] Renal function 2000 panelon 08-02-2024 Albumin [Mass/Vol] 3.3 g/dL Low 3.9-4.9 [facility] Comment on above: Order Comment: Speci men Type: BLOOD SPECIMENOrdering Facility: [facility] Address: [address] [place] [address] Performed By: #### 2 4362-6, ####[facility] LABCLIA [id number] [place] [address] [place] Anion gap [Moles/Vol] 11 mmol/L Normal 8-15 [facility] Comment on above: Order Comment: Speci men Type: BLOOD SPECIMENOrdering Facility: [facility] Address: [address] [place] [address] Performed By: #### 2 4362-6, ####[facility] LABCLIA [id number] [place] [address] [place] Calcium [Mass/Vol] 9.0 mg/dL Normal 8.5-10.2 [facility] Comment on above: Order Comment: Speci men Type: BLOOD SPECIMENOrdering Facility: [facility] Address: [address] [id number] Performed By: #### 2 4362-6, ####[facility] LABCLIA [id number] [address] [address] [place] Chloride [Moles/Vol] 103 mmol/L Normal 98-107 [facility] Comment on above: Order Comment: Speci men Type: BLOOD SPECIMENOrdering Facility: [facility] Address: [address] [place], [place] [address] Performed By: #### 2 4362-6, ####[facility] LABCLIA [id number] [place] [id number] [place] CO2 [Moles/Vol] 27 mmol/L Normal 22-30 [facility] Comment on above: Order Comment: Speci men Type: BLOOD SPECIMENOrdering Facility: [facility] Address: [address] [place] [address] Performed By: #### 2 4362-6, ####[facility] LABIA [id number] [place] [address] [place] Creatinine [Mass/Vol] 0.58 mg/dL Normal 0.58-0.96 [facility] Comment on above: Order Comment: Speci men Type: BLOOD SPECIMENOrdering Facility: [facility] Address: [address] [place] [address] Performed By: #### 2 4362-6, ####[facility] LABIA [id number] [place] [address] [place] Creatinine and Glomerular filtration rate.predicted panel (S/P/Bld) 120 mL/min/1.73m??? Normal >=60 [facility] Comment on above: Order Comment: Speci men Type: BLOOD SPECIMENOrdering Facility: [facility] Address: [address] [place] [address] Result Comment: Desiree mated Glomerular Filtration Rate (eGFR) is calculated using the 2020 CKD-EPI creatinine equation. This equation utilizes serum creatinine, sex, and age as parameters. The creatinine assay has traceable calibration to isotope dilution-mass spectrometry. Refer to KDIGO guidelines for clinical interpretation. In patients with unstable renal function, e.g. those with acute kidney injury, the eGFR may not accurately reflect actual GFR. Performed By: #### 2 4362-6, ####[facility] LABIA [id number] [place] [address] [place] Glucose [Mass/Vol] 83 mg/dL Normal 74-99 [facility] Comment on above: Order Comment: Elfego pollock Type: BLOOD SPECIMENOrdering Facility: [facility] Address: [address] [place] [address] Result Comment: The [place] Diabetes Association (ADA) provides guidance for cutoff values for fasting glucose and random glucose. The ADA defines fasting as no caloric intake for at least 8 hours. Fasting plasma glucose results between 100 to 125 mg/dL indicate increased risk for diabetes (prediabetes).Fasting plasma glucose results greater than or equal to 126 mg/dL meet the criteria for diagnosis of diabetes. In the absence of unequivocal hyperglycemia, results should be confirmed by repeat testing. In a patient with classic symptoms of hyperglycemia or hyperglycemic crisis, random plasma glucose results greater than or equal to 200 mg/dL meet the criteria for diagnosis of diabetes.Reference: Standards of Medical Care in Diabetes 2016, [place] [employer]. Diabetes Care. 2016.39(Suppl 1). Performed By: #### 2 4362-6, ####[facility] LABCLIA [id number] [place] [address] [place] Phosphate [Mass/Vol] 5.1 mg/dL High 2.7-4.8 [facility] Comment on above: Order Comment: Elfego pollock Type: BLOOD SPECIMENOrdering Facility: [facility] Address: [address] [place] [address] Performed By: #### 2 4362-6, ####[facility] LABCLIA [id number] [place] [address] [place] Potassium [Moles/Vol] 4.1 mmol/L Normal 3.7-5.1 [facility] Comment on above: Order Comment: Elfe[place]lock Type: BLOOD SPECIMENOrdering Facility: [facility] Address: [address] [place] [address] Performed By: #### 2 4362-6, ####[facility] LABCLIA [id number] [place] [address] [place] Sodium [Moles/Vol] 141 mmol/L Normal 136-144 [facility] Comment on above: Order Comment: Speci men Type: BLOOD SPECIMENOrdering Facility: [facility] Address: [address] [place] [address] Performed By: #### 2 4362-6, ####[facility] LABCLIA [id number] [place] [address] [place] Urea nitrogen [Mass/Vol] 12 mg/dL Normal 7-21 [facility] Comment on above: Order Comment: Speci men Type: BLOOD SPECIMENOrdering Facility: [facility] Address: [address] [place] [address] Performed By: #### 2 4362-6, ####[facility] LABCLIA [id number] [place] [address] [place] CBC panel Auto (Bld)on 08-01 Erythrocyte distribution width (RBC) [Ratio] 15.3 % High 11.5-15.0 [facility] Comment on above: Order Comment: Speci men Type: BLOOD SPECIMENOrdering Facility: [facility] Address: [address] [place] [address] Performed By: #### 5 8410-2 ####[facility] LABCLIA [id number] [place] [address] [place] Hematocrit (Bld) [Volume fraction] 34.4 % Low 36.0-46.0 [facility] Comment on above: Order Comment: Speci men Type: BLOOD SPECIMENOrdering Facility: [facility] Address: [address] [place] [address] Performed By: #### 5 8410-2 ####[facility] LABCLIA [id number] [place] [address] [place] Hemoglobin (Bld) [Mass/Vol] 11.1 g/dL Low 11.5-15.5 [facility] Comment on above: Order Comment: Speci men Type: BLOOD SPECIMENOrdering Facility: [facility] Address: [address] [place] [address] Performed By: #### 5 8410-2 ####[facility] LABCLIA [id number] [place] [address] [place] MCH (RBC) [Entitic mass] 27.8 pg Normal 26.0-34.0 [facility] Comment on above: Order Comment: Speci men Type: BLOOD SPECIMENOrdering Facility: [facility] Address: [address] [place] [address] Performed By: #### 5 8410-2 ####[facility] LABIA [id number] [place] [address] [place] MCHC (RBC) [Mass/Vol] 32.3 g/dL Normal 30.5-36.0 [facility] Comment on above: Order Comment: Speci men Type: BLOOD SPECIMENOrdering Facility: [facility] Address: [address] [place] [address] Performed By: #### 5 8410-2 ####[facility] LABIA [id number] [place] [address] [place] MCV (RBC) [Entitic vol] 86.0 fL Normal 80.0-100.0 [facility] Comment on above: Order Comment: Speci men Type: BLOOD SPECIMENOrdering Facility: [facility] Address: [address] [place] [address] Performed By: #### 5 8410-2 ####[facility] LABIA [id number] [place] [address] [place] Nucleated RBC (Bld) [#/Vol] 10*3/uL Normal <0.01 [facility] Comment on above: Order Comment: Speci men Type: BLOOD SPECIMENOrdering Facility: [facility] Address: [address] [place] [address] Performed By: #### 5 8410-2 ####[facility] LABCLIA [id number] [place] [address] [place] Platelet mean volume (Bld) [Entitic vol] 10.5 fL Normal 9.0-12.7 [facility] Comment on above: Order Comment: Speci men Type: BLOOD SPECIMENOrdering Facility: [facility] Address: [address] [place] [address] Performed By: #### 5 8410-2 ####[facility] LABCLIA [id number] [place] [address] [place] Platelets (Bld) [#/Vol] 232 10*3/uL Normal 150-400 [facility] Comment on above: Order Comment: Speci men Type: BLOOD SPECIMENOrdering Facility: [facility] Address: [address] [place] [address] Performed By: #### 5 8410-2 ####[facility] LABIA [id number] [place] [address] [place] RBC (Bld) [#/Vol] 4.00 10*6/uL Normal 3.90-5.20 [facility] Comment on above: Order Comment: Speci men Type: BLOOD SPECIMENOrdering Facility: [facility] Address: [address] [place] [address] Performed By: #### 5 8410-2 ####[facility] LABIA [id number] [place] [address] [place] WBC (Bld) [#/Vol] 6.53 10*3/uL Normal 3.70-11.00 [facility] Comment on above: Order Comment: Speci men Type: BLOOD SPECIMENOrdering Facility: [facility] Address: [address] [place] [address] Performed By: #### 5 8410-2 ####[facility] LABIA [id number] [place] [address] [place] CONSULTon 08-01-2024 CONSULT Normal [facility] CONSULT PROGon 08-01-2024 CONSULT PROG Normal [facility] Magnesium SerPl-mCncon 08-01 Magnesium [Mass/Vol] 1.8 mg/dL Normal 1.7-2.[address] [facility] Comment on above: Order Comment: Speci men Type: BLOOD SPECIMENOrdering Facility: [facility] Address: [address] [place] [address] Performed By: #### 1 9123-9, 99681-7, 2571-8 ####[facility] LABCLIA [id number] [place] [address] [place] Renal function 2000 panelon 08-01-2024 Albumin [Mass/Vol] 3.3 g/dL Low 3.9-4.9 [facility] Comment on above: Order Comment: Speci men Type: BLOOD SPECIMENOrdering Facility: [facility] Address: [address] [place] [address] Performed By: #### 1 9123-9, 32411-0, 257-8 ####[facility] LABIA [id number] [place] [address] [place] Anion gap [Moles/Vol] 10 mmol/L Normal 8-15 [facility] Comment on above: Order Comment: Speci men Type: BLOOD SPECIMENOrdering Facility: [facility] Address: [address] [place] [address] Performed By: #### 1 9123-9, 01473-2, 2571-8 ####[facility] LABIA [id number] [place] [id number] [place] Calcium [Mass/Vol] 9.1 mg/dL Normal 8.5-10.2 [facility] Comment on above: Order Comment: Speci men Type: BLOOD SPECIMENOrdering Facility: [facility] Address: [address] [place] [address] Performed By: #### 1 9123-9, 14273-4, 257-8 ####[facility] LABIA [id number] [address] [address] [place] Chloride [Moles/Vol] 107 mmol/L Normal 98-107 [facility] Comment on above: Order Comment: Speci men Type: BLOOD SPECIMENOrdering Facility: [facility] Address: [address] [place] [address] Performed By: #### 1 9123-9, 91785-5, 2578 ####[facility] LABIA [id number] [place] [address] [place] CO2 [Moles/Vol] 27 mmol/L Normal 22-30 [facility] Comment on above: Order Comment: Speci men Type: BLOOD SPECIMENOrdering Facility: [facility] Address: [address] [place] [address] Performed By: #### 1 9123-9, 22804-6, 2578 ####[facility] LABIA [id number] [place] [id number] [place] Creatinine [Mass/Vol] 0.59 mg/dL Normal 0.58-0.96 [facility] Comment on above: Order Comment: Speci men Type: BLOOD SPECIMENOrdering Facility: [facility] Address: [address] [place] [address] Performed By: #### 1 9123-9, 02481-2, 2578 ####[facility] [id number] [place] [id number] [place] Creatinine and Glomerular filtration rate.predicted panel (S/P/Bld) 120 mL/min/1.73m??? Normal >=60 [facility] Comment on above: Order Comment: Speci men Type: BLOOD SPECIMENOrdering Facility: [facility] Address: [address] [place] [address] Result Comment: Desiree mated Glomerular Filtration Rate (eGFR) is calculated using the 2020 CKD-EPI creatinine equation. This equation utilizes serum creatinine, sex, and age as parameters. The creatinine assay has traceable calibration to isotope dilution-mass spectrometry. Refer to KDIGO guidelines for clinical interpretation. In patients with unstable renal function, e.g. those with acute kidney injury, the eGFR may not accurately reflect actual GFR. Performed By: #### 1 9123-9, 01443-1, 8 ####[facility] LABCLIA [id number] [address] [address] [place] Glucose [Mass/Vol] 74 mg/dL Normal 74-99 [facility] Comment on above: Order Comment: Elfego pollock Type: BLOOD SPECIMENOrdering Facility: [facility] Address: [address] [place] [address] Result Comment: The [place] Diabetes Association (ADA) provides guidance for cutoff values for fasting glucose and random glucose. The ADA defines fasting as no caloric intake for at least 8 hours. Fasting plasma glucose results between 100 to 125 mg/dL indicate increased risk for diabetes (prediabetes).Fasting plasma glucose results greater than or equal to 126 mg/dL meet the criteria for diagnosis of diabetes. In the absence of unequivocal hyperglycemia, results should be confirmed by repeat testing. In a patient with classic symptoms of hyperglycemia or hyperglycemic crisis, random plasma glucose results greater than or equal to 200 mg/dL meet the criteria for diagnosis of diabetes.Reference: Standards of Medical Care in Diabetes 2016, [place] [employer]. Diabetes Care. 2016.39(Suppl 1). Performed By: #### 1 9123-9, 56991-7, 8 ####[facility] LABCLIA [id number] [address] [address] [place] Phosphate [Mass/Vol] 3.5 mg/dL Normal 2.7-4.8 [facility] Comment on above: Order Comment: Elfego pollock Type: BLOOD SPECIMENOrdering Facility: [facility] Address: [address] [place] [address] Performed By: #### 1 9123-9, 19137-8, 2570-8 ####[facility] LABCLIA [id number] [place] [address] [place] Potassium [Moles/Vol] 3.7 mmol/L Normal 3.7-5.1 [facility] Comment on above: Order Comment: Speci men Type: BLOOD SPECIMENOrdering Facility: [facility] Address: [address] [place] [address] Performed By: #### 1 9123-9, 32016-2, 2571-8 ####[facility] LABCLIA [id number] [place] [address] [place] Sodium [Moles/Vol] 144 mmol/L Normal 136-144 [facility] Comment on above: Order Comment: Speci men Type: BLOOD SPECIMENOrdering Facility: [facility] Address: [address] [place] [address] Performed By: #### 1 9123-9, 60421-4, 2571-8 ####[facility] LABCLIA [id number] [place] [address] [place] Urea nitrogen [Mass/Vol] 5 mg/dL Low 7-21 [facility] Comment on above: Order Comment: Speci men Type: BLOOD SPECIMENOrdering Facility: [facility] Address: [address] [place] [address] Performed By: #### 1 9123-9, 71277-6, 2571-8 ####[facility] LABCLIA [id number] [place] [address] [place] Trigl SerPl-mCncon 5 Triglyceride [Mass/Vol] 148 mg/dL Normal <150 [facility] Comment on above: Order Comment: Speci men Type: BLOOD SPECIMENOrdering Facility: [facility] Address: [address] [place] [address] Result Comment: <150 mg/dL, Normal 150-199 mg/dL, Borderline high 200-499 mg/dL, High>499 mg/dL, Very highReference:1. National Cholesterol Education Program ATP III Guideline At-A-Glance Quick Desk Reference: National Heart, Lung, and Blood [place]. National Institutes of Health. 2001: NIH Publication No. 01-3305. Performed By: #### 1 9123-9, 42662-6, 2571-8 ####[facility] LABCLIA [id number] [place] [address] [place] Triglyceride [Mass/Vol]on FASTING TIME 0 hrs Normal [facility] Comment on above: Order Comment: Speci men Type: BLOOD SPECIMENOrdering Facility: [facility] Address: [address] [place] [address] Result Comment: NPO, receiving TPN since 2129 Performed By: #### 1 9123-9, 45476-5, 257-8 ####[facility] LABIA [id number] [place] [address] [place] C diff Tox gens Stl Ql CARLOTTA+p robeon 07-31-2024 C. difficile toxin genes CARLOTTA+probe Ql (Stl) Negative Normal Negative for C. difficile toxin by PCR [facility] Comment on above: Order Comment: Speci men Type: STOOL SPECIMENOrdering Facility: [facility] Address: [address] [place] [address] Performed By: #### 5 4067-4 ####[facility] [id number] [place] [address] [place] CASE MGT INIT ASSESon 2024 CASE MGT INIT ASSES Normal [facility] CBC panel Auto (Bld)on 07-31 Erythrocyte distribution width (RBC) [Ratio] 15.5 % High 11.5-15.0 [facility] Comment on above: Order Comment: Speci men Type: BLOOD SPECIMENOrdering Facility: [facility] Address: [address] [place] [address] Performed By: #### 5 8410-2 ####[facility] LABIA [id number] [place] [address] [place] Hematocrit (Bld) [Volume fraction] 34.1 % Low 36.0-46.0 [facility] Comment on above: Order Comment: Speci men Type: BLOOD SPECIMENOrdering Facility: [facility] Address: [address] [place] [address] Performed By: #### 5 8410-2 ####[facility] LABCLIA [id number] [place] [address] [place] Hemoglobin (Bld) [Mass/Vol] 10.9 g/dL Low 11.5-15.5 [facility] Comment on above: Order Comment: Speci men Type: BLOOD SPECIMENOrdering Facility: [facility] Address: [address] [place] [address] Performed By: #### 5 8410-2 ####[facility] LABCLIA [id number] [place] [address] [place] MCH (RBC) [Entitic mass] 28.2 pg Normal 26.0-34.0 [facility] Comment on above: Order Comment: Speci men Type: BLOOD SPECIMENOrdering Facility: [facility] Address: [address] [place] [address] Performed By: #### 5 8410-2 ####[facility] LABIA [id number] [place] [address] [place] MCHC (RBC) [Mass/Vol] 32.0 g/dL Normal 30.5-36.0 [facility] Comment on above: Order Comment: Speci men Type: BLOOD SPECIMENOrdering Facility: [facility] Address: [address] [place] [address] Performed By: #### 5 8410-2 ####[facility] LABCLIA [id number] [place] [address] [place] MCV (RBC) [Entitic vol] 88.3 fL Normal 80.0-100.0 [facility] Comment on above: Order Comment: Speci men Type: BLOOD SPECIMENOrdering Facility: [facility] Address: [address] [place] [address] Performed By: #### 5 8410-2 ####[facility] LABIA [id number] [place] [address] [place] Nucleated RBC (Bld) [#/Vol] 10*3/uL Normal <0.01 [facility] Comment on above: Order Comment: Speci men Type: BLOOD SPECIMENOrdering Facility: [facility] Address: [address] [place] [address] Performed By: #### 5 8410-2 ####[facility] LABIA [id number] [place] [address] [place] Platelet mean volume (Bld) [Entitic vol] 11.6 fL Normal 9.0-12.7 [facility] Comment on above: Order Comment: Speci men Type: BLOOD SPECIMENOrdering Facility: [facility] Address: [address] [place] [address] Performed By: #### 5 8410-2 ####[facility] LABIA [id number] [place] [address] [place] Platelets (Bld) [#/Vol] 219 10*3/uL Normal 150-400 [facility] Comment on above: Order Comment: Speci men Type: BLOOD SPECIMENOrdering Facility: [facility] Address: [address] [place] [address] Performed By: #### 5 8410-2 ####[facility] LABIA [id number] [place] [address] [place] RBC (Bld) [#/Vol] 3.86 10*6/uL Low 3.90-5.20 [facility] Comment on above: Order Comment: Speci men Type: BLOOD SPECIMENOrdering Facility: [facility] Address: [address] [place] [address] Performed By: #### 5 8410-2 ####[facility] LABCLIA [id number] [place] [id number] [place] WBC (Bld) [#/Vol] 6.31 10*3/uL Normal 3.70-11.00 [facility] Comment on above: Order Comment: Speci men Type: BLOOD SPECIMENOrdering Facility: [facility] Address: [address] [place] [address] Performed By: #### 5 8410-2 ####[facility] LABCLIA [id number] [place] [address] [place] CONSULTon 07-31-2024 CONSULT Normal [facility] CONSULT PROGon 07-31-2024 CONSULT PROG Normal [facility] CRP SerPl-mCncon 07-31-2024 CRP [Mass/Vol] 0.4 mg/dL Normal <0.9 [facility] Comment on above: Order Comment: Speci men Type: BLOOD SPECIMENOrdering Facility: [facility] Address: [address] [place] [address] Performed By: #### 1 988-5, 02193-1, 79317-7, 94482-9, 2571-8, 83765-1 ####[facility] LABCLIA [id number] [place] [address] [place] Calprotectin (Stl) [Mass/Mas s]on 07-31-2024 CALPROTECTIN, FECAL INTERP Elevated Abnormal Normal [facility] Comment on above: Order Comment: Speci men Type: STOOL SPECIMENOrdering Facility: [facility] Address: [address] [place] [address] Result Comment: Inte rpretation:<50.0 ug/g: Blocvx07.0 ug/g - 120.0 ug/g: Borderline elevated. Re-evaluation in 4-6 weeks is recommended if clinically indicated.>120.0 ug/g: Elevated Performed By: #### 3 8445-3 ####[facility] LABCLIA [id number] [place] [address] [place] CALPROTECTIN, FECAL QUANTITATIVE 464 ug/g High <50 [facility] Comment on above: Order Comment: Speci men Type: STOOL SPECIMENOrdering Facility: [facility] Address: [address] [place] [address] Performed By: #### 3 8445-3 ####[facility] LABCLIA [id number] [place] [address] [place] Gastrointestinal pathogens i dentified CARLOTTA+probe Nom (Stl)on 07-31-2024 Campylobacter sp DNA CARLOTTA+probe Nom (Unsp spec) Not detected Normal Not Detected [facility] Comment on above: Order Comment: Speci men Type: STOOL SPECIMENOrdering Facility: [facility] Address: [address] [place] [address] Performed By: #### 7 9390-1 ####[facility] LABCLIA [id number] [place] [address] [place] Salmonella sp DNA CARLOTTA+probe Ql (Unsp spec) Not detected Normal Not Detected [facility] Comment on above: Order Comment: Speci men Type: STOOL SPECIMENOrdering Facility: [facility] Address: [address] [place] [address] Performed By: #### 7 9390-1 ####[facility] LABCLIA [id number] [place] [address] [place] Shiga toxin stx gene CARLOTTA+probe Nom (Unsp spec) Not detected Normal Not Detected [facility] Comment on above: Order Comment: Speci men Type: STOOL SPECIMENOrdering Facility: [facility] Address: [address] [place] [address] Performed By: #### 7 9390-1 ####[facility] LABCLIA [id number] [place] [address] [place] Shigella sp DNA CARLOTTA+probe Ql (Unsp spec) Not detected Normal Not Detected [facility] Comment on above: Order Comment: Speci men Type: STOOL SPECIMENOrdering Facility: [facility] Address: [address] [place] [address] Performed By: #### 7 9390-1 ####[facility] LABCLIA [id number] [place] [address] [place] HISTORY PHYSICALon HISTORY PHYSICAL Normal [facility] Hepatic function 2000 panelo n 07-31-2024 ALP [Catalytic activity/Vol] 89 U/L Normal 34-123 [facility] Comment on above: Order Comment: Speci men Type: BLOOD SPECIMENOrdering Facility: [facility] Address: [address] [place] [address] Performed By: #### 1 988-5, 83489-4, 00055-0, 11067-3, 2571-8, 92100-6 ####[facility] LABCLIA [id number] [place] [address] [place] ALT [Catalytic activity/Vol] 34 U/L Normal 7-38 [facility] Comment on above: Order Comment: Speci men Type: BLOOD SPECIMENOrdering Facility: [facility] Address: [address] [place] [address] Performed By: #### 1 988-5, 64856-5, 55599-8, 45479-7, 2571-8, 29606-0 ####[facility] LABCLIA [id number] [place] [address] [place] AST [Catalytic activity/Vol] 57 U/L High 13-35 [facility] Comment on above: Order Comment: Speci men Type: BLOOD SPECIMENOrdering Facility: [facility] Address: [address] [place] [address] Performed By: #### 1 988-5, 87066-4, 71292-1, 83910-8, 2571-8, 47400-5 ####[facility] LABCLIA [id number] [place] [id number] [place] Bilirubin [Mass/Vol] 0.3 mg/dL Normal 0.2-1.3 [facility] Comment on above: Order Comment: Speci men Type: BLOOD SPECIMENOrdering Facility: [facility] Address: [address] [place] [address] Performed By: #### 1 988-5, 56837-4, 30187-1, 05967-8, 2571-8, 38402-2 ####[facility] LABCLIA [id number] [place] [address] [place] Bilirubin.conjugated [Mass/Vol] 0.1 mg/dL Normal <0.3 [facility] Comment on above: Order Comment: Speci men Type: BLOOD SPECIMENOrdering Facility: [facility] Address: [address] [place] [address] Performed By: #### 1 988-5, 82257-8, 46940-8, 26937-2, 2571-8, 21755-0 ####[facility] LABIA [id number] [place] [address] [place] Protein [Mass/Vol] 6.2 g/dL Low 6.3-8.0 [facility] Comment on above: Order Comment: Speci men Type: BLOOD SPECIMENOrdering Facility: [facility] Address: [address] [place] [address] Performed By: #### 1 988-5, 54401-6, 92717-4, 29881-5, 2571-8, 91489-2 ####[facility] LABIA [id number] [place] [address] [place] Magnesium SerPl-mCncon 07-31 Magnesium [Mass/Vol] 1.7 mg/dL Normal 1.7-2.3 [facility] Comment on above: Order Comment: Speci men Type: BLOOD SPECIMENOrdering Facility: [facility] Address: [address] [place], [place] [address] Performed By: #### 1 988-5, 10086-2, 06082-1, 10501-9, 2571-8, 74471-4 ####[facility] LABCLIA [id number] [place] [id number] [place] Procalcitonin SerPl-mCncon 0 07-31-2024 Procalcitonin [Mass/Vol] ng/mL Normal <0.09 [facility] Comment on above: Order Comment: Speci men Type: BLOOD SPECIMENOrdering Facility: [facility] Address: [address] [place] [address] Result Comment: For a guided interpretation of test results, please visit the Change in Procalcitonin Calculator, [email or web address]. Performed By: #### 1 988-5, 22954-2, 18678-7, 65600-6, 2570-8, 70295-4 ####[facility] LABCLIA [id number] [place] [id number] [place] Renal Func 2000 Pnl SerPlon 07-31-2024 Albumin [Mass/Vol] 3.3 g/dL Low 3.9-4.9 [facility] Comment on above: Order Comment: Speci men Type: BLOOD SPECIMENOrdering Facility: [facility] Address: [address] [place] [address] Performed By: #### 1 988-5, 19228-8, 64687-0, 73533-6, 257-8, 11087-5 ####[facility] LABCLIA [id number] [place] [id number] [place] Renal function 2000 panelon 07-31-2024 Anion gap [Moles/Vol] 12 mmol/L Normal 8-15 [facility] Comment on above: Order Comment: Speci men Type: BLOOD SPECIMENOrdering Facility: [facility] Address: [address] [place] [address] Performed By: #### 1 988-5, 01453-4, 83321-1, 42973-2, 2571-8, 41666-0 ####[facility] LABCLIA [id number] [address] [address] [place] Calcium [Mass/Vol] 8.6 mg/dL Normal 8.5-10.2 [facility] Comment on above: Order Comment: Speci men Type: BLOOD SPECIMENOrdering Facility: [facility] Address: [address] [place] [address] Performed By: #### 1 988-5, 81435-9, 36182-7, 48524-0, 2571-8, 37268-6 ####[facility] LABCLIA [id number] [place] [address] [place] Chloride [Moles/Vol] 106 mmol/L Normal 98-107 [facility] Comment on above: Order Comment: Speci men Type: BLOOD SPECIMENOrdering Facility: [facility] Address: [address] [place] [address] Performed By: #### 1 988-5, 79134-6, 24213-4, 72342-6, 2571-8, 10715-1 ####[facility] LABCLIA [id number] [place] [address] [place] CO2 [Moles/Vol] 22 mmol/L Normal 22-30 [facility] Comment on above: Order Comment: Speci men Type: BLOOD SPECIMENOrdering Facility: [facility] Address: [address] [place] [address] Performed By: #### 1 988-5, 21463-5, 68276-6, 36123-0, 2571-8, 23319-1 ####[facility] LABCLIA [id number] [place] [id number] [place] Creatinine [Mass/Vol] 0.65 mg/dL Normal 0.58-0.96 [facility] Comment on above: Order Comment: Speci men Type: BLOOD SPECIMENOrdering Facility: [facility] Address: [address] [place], [place] [address] Performed By: #### 1 988-5, 52710-1, 31450-4, 24960-7, 2571-8, 40173-0 ####[facility] LABIA [id number] [place] [id number] [place] Creatinine and Glomerular filtration rate.predicted panel (S/P/Bld) 117 mL/min/1.73m??? Normal >=60 [facility] Comment on above: Order Comment: Elfego maris Type: BLOOD SPECIMENOrdering Facility: [facility] Address: [address] [place] [address] Result Comment: Desiree mated Glomerular Filtration Rate (eGFR) is calculated using the 2020 CKD-EPI creatinine equation. This equation utilizes serum creatinine, sex, and age as parameters. The creatinine assay has traceable calibration to isotope dilution-mass spectrometry. Refer to KDIGO guidelines for clinical interpretation. In patients with unstable renal function, e.g. those with acute kidney injury, the eGFR may not accurately reflect actual GFR. Performed By: #### 1 988-5, 57606-7, 14341-9, 99389-0, 2571-8, 13143-8 ####[facility] LABIA [id number] [place] [id number] [place] Glucose [Mass/Vol] 90 mg/dL Normal 74-99 [facility] Comment on above: Order Comment: Elfego maris Type: BLOOD SPECIMENOrdering Facility: [facility] Address: [address] [place] [address] Result Comment: The [place] Diabetes Association (ADA) provides guidance for cutoff values for fasting glucose and random glucose. The ADA defines fasting as no caloric intake for at least 8 hours. Fasting plasma glucose results between 100 to 125 mg/dL indicate increased risk for diabetes (prediabetes).Fasting plasma glucose results greater than or equal to 126 mg/dL meet the criteria for diagnosis of diabetes. In the absence of unequivocal hyperglycemia, results should be confirmed by repeat testing. In a patient with classic symptoms of hyperglycemia or hyperglycemic crisis, random plasma glucose results greater than or equal to 200 mg/dL meet the criteria for diagnosis of diabetes.Reference: Standards of Medical Care in Diabetes 2016, [place] [employer]. Diabetes Care. 2016.39(Suppl 1). Performed By: #### 1 988-5, 06839-5, 36394-7, 19068-5, 2571-8, 16163-2 ####[facility] LABCLIA [id number] [place] [address] [place] Phosphate [Mass/Vol] 3.6 mg/dL Normal 2.7-4.8 [facility] Comment on above: Order Comment: Speci men Type: BLOOD SPECIMENOrdering Facility: [facility] Address: [address] [place] [address] Performed By: #### 1 988-5, 96924-0, 33476-4, 56310-0, 2570-8, 78066-9 ####[facility] LABIA [id number] [place] [address] [place] Potassium [Moles/Vol] 4.1 mmol/L Normal 3.7-5.1 [facility] Comment on above: Order Comment: Speci men Type: BLOOD SPECIMENOrdering Facility: [facility] Address: [address] [place] [address] Performed By: #### 1 988-5, 57344-6, 27524-6, 18481-7, 257-8, 53632-1 ####[facility] LABIA [id number] [place] [id number] [place] Sodium [Moles/Vol] 140 mmol/L Normal 136-144 [facility] Comment on above: Order Comment: Speci men Type: BLOOD SPECIMENOrdering Facility: [facility] Address: [address] [place] [address] Performed By: #### 1 988-5, 23639-7, 72797-9, 68093-1, 2571-8, 91672-2 ####[facility] LABCLIA [id number] [address] [address] [place] Urea nitrogen [Mass/Vol] 4 mg/dL Low 7-21 [facility] Comment on above: Order Comment: Speci men Type: BLOOD SPECIMENOrdering Facility: [facility] Address: [address] [place] [address] Performed By: #### 1 988-5, 97904-8, 10427-5, 94493-1, 2570-8, 38024-8 ####[facility] LABCLIA [id number] [place] [id number] [place] Trigl SerPl-mCncon Triglyceride [Mass/Vol] 162 mg/dL High <150 [facility] Comment on above: Order Comment: Speci men Type: BLOOD SPECIMENOrdering Facility: [facility] Address: [address] [place] [address] Result Comment: <150 mg/dL, Normal 150-199 mg/dL, Borderline high 200-499 mg/dL, High>499 mg/dL, Very highReference:1. National Cholesterol Education Program ATP III Guideline At-A-Glance Quick Desk Reference: National Heart, Lung, and Blood [place]. National Institutes of Health. 2001: NIH Publication No. 01-3305. Performed By: #### 1 988-5, 98132-1, 91544-5, 61687-8, 2570-8, 52952-6 ####[facility] LABCLIA [id number] [place] [id number] [place] Triglyceride [Mass/Vol]on FASTING TIME unknown Normal [facility] Comment on above: Order Comment: Speci men Type: BLOOD SPECIMENOrdering Facility: [facility] Address: [address] [place] [address] Performed By: #### 1 988-5, 77240-3, 80076-1, 19107-6, 2570-8, 80328-3 ####[facility] LABCLIA [id number] [place] [address] [place] XR CHEST 1V FRONTAL PORTon 0 07-31-2024 XR CHEST 1V FRONTAL PORT Normal [facility] Bacteria Bld Culton 07-30-19 25 Bacteria identified Cx Nom (Bld) CULTURE, BLOOD: No growth 5 days Normal [facility] Comment on above: Performed By: #### 6 00-7 ####[facility] LABCLIA [id number] [place] [address] [place] Bacteria identified Cx Nom (Bld) Normal [facility] Comment on above: Performed By: #### 6 00-7 ####[facility] LABCLIA [id number] [place] [address] [place] CBC W Auto Differential pane l (Bld)on 07-30-2024 Basophils (Bld) [#/Vol] 0.03 10*3/uL Normal <0.11 [facility] Comment on above: Order Comment: Speci men Type: BLOOD SPECIMENOrdering Facility: [facility] Address: [address] [place] [address] Performed By: #### 5 7021-8 ####[facility] LABCLIA [id number] [place] [address] [place] Basophils/100 WBC (Bld) 0.4 % Normal [facility] Comment on above: Order Comment: Speci men Type: BLOOD SPECIMENOrdering Facility: [facility] Address: [address] [place] [address] Performed By: #### 5 7021-8 ####[facility] LABCLIA [id number] [place] [address] [place] Differential cell count method Nom (Bld) Auto Normal [facility] Comment on above: Order Comment: Speci men Type: BLOOD SPECIMENOrdering Facility: [facility] Address: [address] [place] [address] Performed By: #### 5 7021-8 ####[facility] LABCLIA [id number] [place] [address] [place] Eosinophils (Bld) [#/Vol] 0.19 10*3/uL Normal <0.46 [facility] Comment on above: Order Comment: Speci men Type: BLOOD SPECIMENOrdering Facility: [facility] Address: [address] [place] [address] Performed By: #### 5 7021-8 ####[facility] LABCLIA [id number] [place] [address] [place] Eosinophils/100 WBC (Bld) 2.7 % Normal [facility] Comment on above: Order Comment: Speci men Type: BLOOD SPECIMENOrdering Facility: [facility] Address: [address] [place] [address] Performed By: #### 5 7021-8 ####[facility] LABCLIA [id number] [place] [address] [place] Erythrocyte distribution width (RBC) [Ratio] 15.2 % High 11.5-15.0 [facility] Comment on above: Order Comment: Speci men Type: BLOOD SPECIMENOrdering Facility: [facility] Address: [address] [place] [address] Performed By: #### 5 7021-8 ####[facility] LABCLIA [id number] [place] [address] [place] Hematocrit (Bld) [Volume fraction] 34.9 % Low 36.0-46.0 [facility] Comment on above: Order Comment: Speci men Type: BLOOD SPECIMENOrdering Facility: [facility] Address: [address] [place] [address] Performed By: #### 5 7021-8 ####[facility] LABCLIA [id number] [place] [address] [place] Hemoglobin (Bld) [Mass/Vol] 11.2 g/dL Low 11.5-15.5 [facility] Comment on above: Order Comment: Speci men Type: BLOOD SPECIMENOrdering Facility: [facility] Address: [address] [place] [address] Performed By: #### 5 7021-8 ####[facility] LABCLIA [id number] [place] [address] [place] Immature granulocytes (Bld) [#/Vol] 0.04 10*3/uL Normal <0.10 [facility] Comment on above: Order Comment: Speci men Type: BLOOD SPECIMENOrdering Facility: [facility] Address: [address] [place] [address] Performed By: #### 5 7021-8 ####[facility] LABCLIA [id number] [place] [address] [place] Immature granulocytes/100 WBC (Bld) 0.6 % Normal [facility] Comment on above: Order Comment: Speci men Type: BLOOD SPECIMENOrdering Facility: [facility] Address: [address] [place] [address] Performed By: #### 5 7021-8 ####[facility] LABCLIA [id number] [place] [address] [place] Lymphocytes (Bld) [#/Vol] 1.11 10*3/uL Normal 1.00-4.00 [facility] Comment on above: Order Comment: Speci men Type: BLOOD SPECIMENOrdering Facility: [facility] Address: [address] [place] [address] Performed By: #### 5 7021-8 ####[facility] LABCLIA [id number] [place] [address] [place] Lymphocytes/100 WBC (Bld) 15.6 % Normal [facility] Comment on above: Order Comment: Speci men Type: BLOOD SPECIMENOrdering Facility: [facility] Address: [address] [place] [address] Performed By: #### 5 7021-8 ####[facility] LABIA [id number] [place] [address] [place] MCH (RBC) [Entitic mass] 28.3 pg Normal 26.0-34.0 [facility] Comment on above: Order Comment: Speci men Type: BLOOD SPECIMENOrdering Facility: [facility] Address: [address] [place] [address] Performed By: #### 5 7021-8 ####[facility] [id number] [place] [address] [place] MCHC (RBC) [Mass/Vol] 32.1 g/dL Normal 30.5-36.0 [facility] Comment on above: Order Comment: Speci men Type: BLOOD SPECIMENOrdering Facility: [facility] Address: [address] [place] [address] Performed By: #### 5 7021-8 ####[facility] [id number] [place] [address] [place] MCV (RBC) [Entitic vol] 88.1 fL Normal 80.0-100.0 [facility] Comment on above: Order Comment: Speci men Type: BLOOD SPECIMENOrdering Facility: [facility] Address: [address] [place] [address] Performed By: #### 5 7021-8 ####[facility] LABIA [id number] [place] [address] [place] Monocytes (Bld) [#/Vol] 0.40 10*3/uL Normal <0.87 [facility] Comment on above: Order Comment: Speci men Type: BLOOD SPECIMENOrdering Facility: [facility] Address: [address] [place] [address] Performed By: #### 5 7021-8 ####[facility] LABIA [id number] [place] [address] [place] Monocytes/100 WBC (Bld) 5.6 % Normal [facility] Comment on above: Order Comment: Speci men Type: BLOOD SPECIMENOrdering Facility: [facility] Address: [address] [place] [address] Performed By: #### 5 7021-8 ####[facility] LABCLIA [id number] [place] [address] [place] Neutrophils (Bld) [#/Vol] 5.33 10*3/uL Normal 1.45-7.50 [facility] Comment on above: Order Comment: Speci men Type: BLOOD SPECIMENOrdering Facility: [facility] Address: [address] [place] [address] Performed By: #### 5 7021-8 ####[facility] LABCLIA [id number] [place] [address] [place] Neutrophils/100 WBC (Bld) 75.1 % Normal [facility] Comment on above: Order Comment: Speci men Type: BLOOD SPECIMENOrdering Facility: [facility] Address: [address] [place] [address] Performed By: #### 5 7021-8 ####[facility] LABCLIA [id number] [place] [address] [place] Nucleated RBC (Bld) [#/Vol] 10*3/uL Normal <0.01 [facility] Comment on above: Order Comment: Speci men Type: BLOOD SPECIMENOrdering Facility: [facility] Address: [address] [place] [address] Performed By: #### 5 7021-8 ####[facility] LABCLIA [id number] [place] [address] [place] Nucleated RBC/100 WBC (Bld) [Ratio] 0.0 /100 WBC Normal [facility] Comment on above: Order Comment: Speci men Type: BLOOD SPECIMENOrdering Facility: [facility] Address: [address] [place] [address] Performed By: #### 5 7021-8 ####[facility] LABCLIA [id number] [place] [address] [place] Platelet mean volume (Bld) [Entitic vol] 10.7 fL Normal 9.0-12.7 [facility] Comment on above: Order Comment: Speci men Type: BLOOD SPECIMENOrdering Facility: [facility] Address: [address] [place] [address] Performed By: #### 5 7021-8 ####[facility] LABCLIA [id number] [place] [address] [place] Platelets (Bld) [#/Vol] 194 10*3/uL Normal 150-400 [facility] Comment on above: Order Comment: Speci men Type: BLOOD SPECIMENOrdering Facility: [facility] Address: [address] [place] [address] Performed By: #### 5 7021-8 ####[facility] LABCLIA [id number] [place] [address] [place] RBC (Bld) [#/Vol] 3.96 10*6/uL Normal 3.90-5.20 [facility] Comment on above: Order Comment: Speci men Type: BLOOD SPECIMENOrdering Facility: [facility] Address: [address] [place] [address] Performed By: #### 5 7021-8 ####[facility] LABCLIA [id number] [place] [address] [place] WBC (Bld) [#/Vol] 7.10 10*3/uL Normal 3.70-11.00 [facility] Comment on above: Order Comment: Speci men Type: BLOOD SPECIMENOrdering Facility: [facility] Address: [address] [place] [address] Performed By: #### 5 7021-8 ####[facility] LABCLIA [id number] [address] [address] [place] CRP SerPl-mCncon 07-30-2024 CRP [Mass/Vol] 0.4 mg/dL Normal <0.9 [facility] Comment on above: Order Comment: Speci men Type: BLOOD SPECIMENOrdering Facility: [facility] Address: [address] [place] [address] Performed By: #### 1 9123-9, 2776-07, 1987-11, ####[facility] LABCLIA [id number] [place] [id number] [place] CT ENTEROGRAPHY W IVCONon CT ENTEROGRAPHY W IVCON Normal [facility] metabolic 2000 panelon 07-30-2024 Albumin [Mass/Vol] 3.2 g/dL Low 3.9-4.9 [facility] Comment on above: Order Comment: Speci men Type: BLOOD SPECIMENOrdering Facility: [facility] Address: [address] [place] [address] Performed By: #### 1 9123-9, 2776-07, 1987-11, ####[facility] LABCLIA [id number] [place] [id number] [place] ALP [Catalytic activity/Vol] 90 U/L Normal 34-123 [facility] Comment on above: Order Comment: Speci men Type: BLOOD SPECIMENOrdering Facility: [facility] Address: [address] [place] [address] Performed By: #### 1 9123-9, 2776-07, 1987-11, ####[facility] LABCLIA [id number] [place] [id number] [place] ALT [Catalytic activity/Vol] 25 U/L Normal 7-38 [facility] Comment on above: Order Comment: Speci men Type: BLOOD SPECIMENOrdering Facility: [facility] Address: [address] [place] [address] Performed By: #### 1 9123-9, 2776-07, 1987-11, ####[facility] LABCLIA [id number] [place] [address] [place] Anion gap [Moles/Vol] 12 mmol/L Normal 8-15 [facility] Comment on above: Order Comment: Speci men Type: BLOOD SPECIMENOrdering Facility: [facility] Address: [address] [place] [address] Performed By: #### 1 9123-9, 27701-02, 1987-11, ####[facility] LABIA [id number] [place] [address] [place] AST [Catalytic activity/Vol] 51 U/L High 13-35 [facility] Comment on above: Order Comment: Speci men Type: BLOOD SPECIMENOrdering Facility: [facility] Address: [address] [place] [address] Performed By: #### 1 9123-9, 2776-07, 1987-11, ####[facility] LABIA [id number] [place] [address] [place] Bilirubin [Mass/Vol] mg/dL Low 0.2-1.3 [facility] Comment on above: Order Comment: Speci men Type: BLOOD SPECIMENOrdering Facility: [facility] Address: [address] [place] [address] Performed By: #### 1 9123-9, 27701-02, 1987-11, ####[facility] LABIA [id number] [place] [address] [place] Calcium [Mass/Vol] 8.7 mg/dL Normal 8.5-10.2 [facility] Comment on above: Order Comment: Speci men Type: BLOOD SPECIMENOrdering Facility: [facility] Address: [address] [place] [address] Performed By: #### 1 9123-9, 2776-07, 1987-11, ####[facility] LABIA [id number] [place] [address] [place] Chloride [Moles/Vol] 106 mmol/L Normal 98-107 [facility] Comment on above: Order Comment: Speci men Type: BLOOD SPECIMENOrdering Facility: [facility] Address: [address] [place] [address] Performed By: #### 1 9123-9, 27701-02, 1987-11, ####[facility] LABIA [id number] [place] [address] [place] CO2 [Moles/Vol] 21 mmol/L Low 22-30 [facility] Comment on above: Order Comment: Speci men Type: BLOOD SPECIMENOrdering Facility: [facility] Address: [address] [place] [address] Performed By: #### 1 9123-9, 2776-07, 1987-11, ####[facility] LABIA [id number] [place] [address] [place] Creatinine [Mass/Vol] 0.53 mg/dL Low 0.58-0.96 [facility] Comment on above: Order Comment: Speci men Type: BLOOD SPECIMENOrdering Facility: [facility] Address: [address] [place] [address] Performed By: #### 1 9123-9, 27701-02, 1987-11, ####[facility] LABIA [id number] [place] [address] [place] Creatinine and Glomerular filtration rate.predicted panel (S/P/Bld) 123 mL/min/1.73m??? Normal >=60 [facility] Comment on above: Order Comment: Speci men Type: BLOOD SPECIMENOrdering Facility: [facility] Address: [address] [place] [address] Result Comment: Desiree mated Glomerular Filtration Rate (eGFR) is calculated using the 2020 CKD-EPI creatinine equation. This equation utilizes serum creatinine, sex, and age as parameters. The creatinine assay has traceable calibration to isotope dilution-mass spectrometry. Refer to KDIGO guidelines for clinical interpretation. In patients with unstable renal function, e.g. those with acute kidney injury, the eGFR may not accurately reflect actual GFR. Performed By: #### 1 9123-9, 2776-07, ####[facility] LABIA [id number] [place] [id number] [place] Glucose [Mass/Vol] 82 mg/dL Normal 74-99 [facility] Comment on above: Order Comment: Speci men Type: BLOOD SPECIMENOrdering Facility: [facility] Address: [address] [place] [address] Result Comment: The [place] [employer] (ADA) provides guidance for cutoff values for fasting glucose and random glucose. The ADA defines fasting as no caloric intake for at least 8 hours. Fasting plasma glucose results between 100 to 125 mg/dL indicate increased risk for diabetes (prediabetes).Fasting plasma glucose results greater than or equal to 126 mg/dL meet the criteria for diagnosis of diabetes. In the absence of unequivocal hyperglycemia, results should be confirmed by repeat testing. In a patient with classic symptoms of hyperglycemia or hyperglycemic crisis, random plasma glucose results greater than or equal to 200 mg/dL meet the criteria for diagnosis of diabetes.Reference: Standards of Medical Care in Diabetes 2016, [place] [employer]. Diabetes Care. 2016.39(Suppl 1). Performed By: #### 1 9123-9, 2776-07, ####[facility] LABIA [id number] [place] [id number] [place] Potassium [Moles/Vol] 4.1 mmol/L Normal 3.7-5.1 [facility] Comment on above: Order Comment: Speci men Type: BLOOD SPECIMENOrdering Facility: [facility] Address: [address] [place] [id number] Performed By: #### 1 9123-9, 27701-02, 1987-11, ####[facility] LABCLIA [id number] [address] [address] [place] Protein [Mass/Vol] 6.2 g/dL Low 6.3-8.0 [facility] Comment on above: Order Comment: Speci men Type: BLOOD SPECIMENOrdering Facility: [facility] Address: [address] [place], [place] [address] Performed By: #### 1 9123-9, 27701-02, 1987-11, ####[facility] LABIA [id number] [place] [id number] [place] Sodium [Moles/Vol] 139 mmol/L Normal 136-144 [facility] Comment on above: Order Comment: Speci men Type: BLOOD SPECIMENOrdering Facility: [facility] Address: [address] [place], [place] [address] Performed By: #### 1 9123-9, 2776-07, 1987-11, ####[facility] [id number] [place] [id number] [place] Urea nitrogen [Mass/Vol] 10 mg/dL Normal 7-21 [facility] Comment on above: Order Comment: Speci men Type: BLOOD SPECIMENOrdering Facility: [facility] Address: [address] [place], [place] [address] Performed By: #### 1 9123-9, 27701-02, 1987-11, ####[facility] LABIA [id number] [place] [id number] [place] ED NOTEon 07-30-2024 ED NOTE Normal [facility] ED NOTE Normal [facility] ED NOTE HNO ID: [id number] Author: GALILEO CONDON RN Service: Emergency Medicine Author Type: Registered Nurse Type: ED Notes Filed: 07/30/2024 15:22 Note Text: Pt has been at [facility] awaiting transfer to [facility], crohn's flare, symptoms for 2 weeks. Normal [facility] ED PROV NOTEon 07-30-2024 ED PROV NOTE Normal [facility] ESR Westergren method (Bld) [Velocity]on 07-30-2024 ESR (Bld) [Velocity] 41 mm/h High 0-20 [facility] Comment on above: Order Comment: Specroby pollock Type: BLOOD SPECIMENOrdering Facility: [facility] Address: [address] [place] [address] Performed By: #### 4 537-7 ####[facility] LABCLIA [id number] [place] [address] [place] HISTORY PHYSICALon HISTORY PHYSICAL Normal [facility] Magnesium SerPl-mCncon 07-30 Magnesium [Mass/Vol] 1.8 mg/dL Normal 1.7-2.3 [facility] Comment on above: Order Comment: Elfego pollock Type: BLOOD SPECIMENOrdering Facility: [facility] Address: [address] [place] [address] Performed By: #### 1 9123-9, 2777-1, 1988-5, 45411-2 ####[facility] LABCLIA [id number] [address] [place] PT panel Coag (PPP)on 2024 INR Coag (PPP) [Relative time] 1.0 {INR} Normal 0.9-1.3 [facility] Comment on above: Order Comment: Elfego pollock Type: BLOOD SPECIMENOrdering Facility: [facility] Address: [address] [place] [address] Result Comment: Senia min K Antagonist (VKA) Therapeutic Range: INR 2 to 3 (Target INR of 2.5)Note: For patients treated with VKA drugs, such as warfarin, the [employer] 2012 Guideline recommends a therapeutic INR range of 2 to 3 (target INR of 2.5). This recommendation includes high-risk patients with antiphospholipid syndrome with previous arterial or venous thromboembolism, current-generation mechanical or bioprosthetic aortic heart valve replacement.Note: Patients with mechanical aortic valve replacement and additional risk factors for thromboembolic events (atrial fibrillation, previous thromboembolism, LV dysfunction, hypercoagulable conditions) or an older generation mechanical AVR (i.e., ball in-Cage) or any mechanical MVR should have a INR therapeutic range of 2.5 to 3.5 (target INR of 3).Brie GH, et al. Chest 2012, 141:7S-47SNishimura RA, et al. [facility] 2017, 70: 252-289 Performed By: #### 3 4528-0 ####[facility] [id number] [place] [address] [place] PT Coag (PPP) [Time] 11.3 s Normal 9.7-13.0 [facility] Comment on above: Order Comment: Elfego pollock Type: BLOOD SPECIMENOrdering Facility: [facility] Address: [address] [place] [address] Performed By: #### 3 4528-0 ####[facility] [id number] [place] [address] [place] Phosphate SerPl-mCncon 07-30 Phosphate [Mass/Vol] 2.6 mg/dL Low 2.7-4.8 [facility] Comment on above: Order Comment: Elfego pollock Type: BLOOD SPECIMENOrdering Facility: [facility] Address: [address] [place] [address] Performed By: #### 1 9123-9, 2777-1, 1988-5, 16374-1 ####[facility] [id number] [place] [address] [place] SEPSIS LACTATE W/ REFLEX (IN ITIAL)on 07-30-2024 Lactate [Moles/Vol] 0.8 mmol/L Normal <=2.0 [facility] Comment on above: Order Comment: Elfego pollock Type: BLOOD SPECIMENOrdering Facility: [facility] Address: [address] [place] [address] Performed By: #### S LACTR ####[facility] LABCLIA [id number] [place] [address] [place] [facility] TYPE + SCREENon 07-30-2024 ABO A Normal [facility] Comment on above: Order Comment: Speci men Type: BLOOD SPECIMENOrdering Facility: [facility] Address: [address] [place] [address] Performed By: #### T SCR ####[facility]LO[facility] BANKCLIA [id number] [place] [address] [place] [facility] [place] Rh Nom (Bld) Negative Normal [facility] Comment on above: Order Comment: Speci men Type: BLOOD SPECIMENOrdering Facility: [facility] Address: [address] [place] [address] Performed By: #### T SCR ####[facility]LOOD [facility]ANKCL[facility] [id number] [place] [address] [place] TYPE AND SCREEN EXPIRATION 08/02/2024 23:59 Normal [facility] Comment on above: Order Comment: Speci men Type: BLOOD SPECIMENOrdering Facility: [facility] Address: [address] [place] [address] Performed By: #### T SCR ####[facility] BLOOD BANKCLIA [id number] [place] [address] [place] Basic Metabolic Panelon 07-06 Est, Glom Filt Rate - PINF [facility] Comment on above: These results are not intended for use in patients <18 years of age. eGFR results are calculated without a race factor using the 2020 CKD-EPI equation. Careful clinical correlation is recommended, particularly when comparing to results calculated using previous equations. The CKD-EPI equation is less accurate in patients with extremes of muscle mass, extra-renal metabolism of creatine, excessive creatine ingestion, or following therapy that affects renal tubular secretion. Interpretation and review of laboratory results Abnormal [facility] Basic Metabolic Profon 07-29 Anion gap [Moles/Vol] 10 mmol/L Normal 9-16 [facility] Comment on above: Performed By: #### C RP, HCG, LIP, TROPI, CDP, CP #### [facility] [address] [place] [address] Ripsaw Matcher: Dioni Merlos MD Calcium [Mass/Vol] 8.5 mg/dL Low 8.6-10.4 [facility] Comment on above: Performed By: #### C RP, HCG, LIP, TROPI, CDP, CP #### [facility] [address] [place] [address] Ripsaw Matcher: Dioni Merlos MD Chloride [Moles/Vol] 107 mmol/L Normal 98-107 [facility] Comment on above: Performed By: #### C RP, HCG, LIP, TROPI, CDP, CP #### [facility] [address] [place] [address] Ripsaw Matcher: Dioni Merlos MD CO2 [Moles/Vol] 22 mmol/L Normal 20-31 [facility] Comment on above: Performed By: #### C RP, HCG, LIP, TROPI, CDP, CP #### [facility] [address] [place] [address] Ripsaw Matcher: Dioni Merlos MD Creatinine [Mass/Vol] 0.6 mg/dL Normal 0.6-0.9 [facility] Comment on above: Performed By: #### C RP, HCG, LIP, TROPI, CDP, CP #### [facility] [address] [place] [address] Ripsaw Matcher: Dioni Merlos MD Glucose [Mass/Vol] 72 mg/dL Low 74-99 [facility] Comment on above: Performed By: #### C RP, HCG, LIP, TROPI, CDP, CP #### [facility] [address] [place] [address] Ripsaw Matcher: Dioni Merlos MD Potassium [Moles/Vol] 4.8 mmol/L Normal 3.7-5.3 [facility] Comment on above: Performed By: #### C RP, HCG, LIP, TROPI, CDP, CP #### [facility] [address] [place] [address] Ripsaw Matcher: Dioni Merlos MD Sodium [Moles/Vol] 139 mmol/L Normal 136-145 [facility] Comment on above: Performed By: #### C RP, HCG, LIP, TROPI, CDP, CP #### [facility] [address] [place] [address] Ripsaw Matcher: Dioni Merlos MD Urea nitrogen [Mass/Vol] 13 mg/dL Normal 6-20 [facility] Comment on above: Performed By: #### C RP, HCG, LIP, TROPI, CDP, CP #### [address] [address] Ripsaw Matcher: Dioni Merlos MD GFR/1.73 sq M.predicted among non-blacks MDRD (S/P/Bld) [Vol rate/Area] mL/min/{1.73_m2} Normal >60 [facility] Comment on above: Result Comment: These results are not intended for use in patients <18 years of age. eGFR results are calculated without a race factor using the 2020 CKD-EPI equation. Careful clinical correlation is recommended, particularly when comparing to results calculated using previous equations. The CKD-EPI equation is less accurate in patients with extremes of muscle mass, extra-renal metabolism of creatine, excessive creatine ingestion, or following therapy that affects renal tubular secretion. Performed By: #### C RP, HCG, LIP, TROPI, CDP, CP #### [address] [address] Ripsaw Matcher: Dioni Merlos MD C-Reactive Proteinon 01-25-2 025 CRP High sensitivity method [Mass/Vol] 6.9 mg/L High 0.0 - 5.0 mg/L [facility] Interpretation and review of laboratory results Abnormal [facility] CRP [Mass/Vol] 6.9 mg/L High 0.0-5.0 [facility] Comment on above: Performed By: #### C RP, HCG, LIP, TROPI, CDP, CP #### [facility] [address] [place], [place] [id number] Ripsaw Matcher: Dioni Merlso MD [facility] 07-29-2024 Erythrocyte distribution width (RBC) [Ratio] 15.6 % High 11.8 - 14.4 % [facility] Hematocrit (Bld) [Volume fraction] 38.9 % 36.3 - 47.1 % [facility] Hemoglobin (Bld) [Mass/Vol] 11.9 g/dL 11.9 - 15.1 g/dL [facility] Interpretation and review of laboratory results Abnormal [facility] MCH (RBC) [Entitic mass] 27.6 pg 25.2 - 33.5 pg [facility] MCHC (RBC) [Mass/Vol] 30.6 g/dL 28.4 - 34.8 g/dL [facility] MCV (RBC) [Entitic vol] 90.3 fL 82.6 - 102.9 fL [facility] Nucleated RBC/100 WBC (Bld) [Ratio] 0.0 % 0.0 per 100 WBC [facility] Platelet mean volume (Bld) [Entitic vol] 10.9 fL 8.1 - 13.5 fL [facility] Platelets (Bld) [#/Vol] 292 10*3/uL [facility] RBC (Bld) [#/Vol] 4.31 10*6/uL 3.95 - 5.11 m/uL [facility] WBC other (Bld) [#/Vol] 8.0 [facility] Erythrocyte distribution width (RBC) [Ratio] 15.6 % High 11.8-14.4 [facility] Comment on above: Performed By: #### C BC, LACTIC #### [facility] [address] [place], [place] [id number] Ripsaw Matcher: Dioni Merlos MD Hematocrit (Bld) [Volume fraction] 38.9 % Normal 36.3-47.1 [facility] Comment on above: Performed By: #### C BC, LACTIC #### [facility] [address] [place] [address] Ripsaw Matcher: Dioni Merlos MD Hemoglobin (Bld) [Mass/Vol] 11.9 g/dL Normal 11.9-15.1 [facility] Comment on above: Performed By: #### C BC, LACTIC #### [facility] [address] [place] [address] Ripsaw Matcher: Dioni Merlos MD MCH (RBC) [Entitic mass] 27.6 pg Normal 25.2-33.5 [facility] Comment on above: Performed By: #### C BC, LACTIC #### [address] [address] Ripsaw Matcher: Dioni Merlos MD MCHC (RBC) [Mass/Vol] 30.6 g/dL Normal 28.4-34.8 [facility] Comment on above: Performed By: #### C BC, LACTIC #### [facility] [address] [place] [address] Ripsaw Matcher: Dioni Merlos MD MCV (RBC) [Entitic vol] 90.3 fL Normal 82.6-102.9 [facility] Comment on above: Performed By: #### C BC, LACTIC #### [facility] [address] [place] [address] Ripsaw Matcher: Dioni Merlos MD NRBC Automated 0.0 per 100 WBC Normal 0.0 [facility] Comment on above: Performed By: #### C BC, LACTIC #### [facility] [address] [place] [address] Ripsaw Matcher: Dioni Merlos MD Platelet mean volume (Bld) [Entitic vol] 10.9 fL Normal 8.1-13.5 [facility] Comment on above: Performed By: #### C BC, LACTIC #### [facility] [place] [address] Ripsaw Matcher: Dioni Merlos MD Platelets (Bld) [#/Vol] 292 10*3/uL Normal 138-453 [facility] Comment on above: Performed By: #### C BC, LACTIC #### [facility] [address] [place] [address] Ripsaw Matcher: Dioni Merlos MD RBC (Bld) [#/Vol] 4.31 10*6/uL Normal 3.95-5.11 [facility] Comment on above: Performed By: #### C BC, LACTIC #### [address] [address] Ripsaw Matcher: Dioni Merlos MD WBC (Bld) [#/Vol] 8.0 10*3/uL Normal 3.5-11.3 [facility] Comment on above: Performed By: #### C BC, LACTIC #### [facility] [address] [place] [address] Ripsaw Matcher: Dioni Merlos MD Glucose,Whole Bloodon 2024 Glucose [Mass/Vol] 72 mg/dL Normal 65-105 [facility] Lactic Acidon 07-29-2024 Lactic Acid, Whole Blood 1.0 mmol/L 0.7 - 2.1 mmol/L [facility] Lactic Acid,Whole Bl 1.0 mmol/L Normal 0.7-2.1 [facility] Comment on above: Performed By: #### C BC, LACTIC #### [facility] [address] [place] [address] Ripsaw Matcher: Dioni Merlos MD Magnesiumon 07-29-2024 Magnesium [Mass/Vol] 2.2 mg/dL Normal 1.6-2.6 [facility] Comment on above: Performed By: #### C RP, HCG, LIP, TROPI, CDP, CP #### [facility] [place], [place] [id number] Ripsaw Matcher: Dioni Merlos MD No Panel Informationon 07-29 [facility] POC Glucose Fingerstickon Glucose [Mass/Vol] 72 mg/dL 65 - 105 mg/dL [facility] Phosphoruson 07-29-2024 Phosphate [Mass/Vol] 3.9 mg/dL 2.5 - 4.5 mg/dL [facility] Phosphorus, Inorg.on Phosphorus, Inorg. 3.9 mg/dL Normal 2.5-4.5 [facility] Comment on above: Performed By: #### C RP, HCG, LIP, TROPI, CDP, CP #### [facility] [address] [place] [id number] Ripsaw Matcher: Dioni Merlos MD XR ABDOMEN (KUB) (SINGLE AP VIEW)on 07-29-2024 XR ABDOMEN (KUB) (SINGLE AP VIEW) EXAMINATION: ONE SUPINE XRAY VIEW(S) OF THE ABDOMEN 07/29/2024 12:37 pm COMPARISON: 07/21/2024 HISTORY: ORDERING SYSTEM PROVIDED HISTORY: abdominal pain TECHNOLOGIST PROVIDED HISTORY: abdominal pain Reason for Exam: Abdominal Pain FINDINGS: Ileus. No free air. No gross bony abnormality. IMPRESSION: Ileus Interpreted by: Rahul Rincon MD Signed by: Rahul Rincon MD 07/29/24 Final result Normal [facility] XR Abdomen Single viewon Ileus [facility] EXAMINATION: ONE SUPINE XRAY VIEW(S) OF THE ABDOMEN 07/29/2024 12:37 pm COMPARISON: 07/21/2024 HISTORY: ORDERING SYSTEM PROVIDED HISTORY: abdominal pain TECHNOLOGIST PROVIDED HISTORY: abdominal pain Reason for Exam: Abdominal Pain FINDINGS: Ileus. No free air. No gross bony abnormality. [facility] Rahul Rincon MD - 07/29/2024 EXAMINATION: ONE SUPINE XRAY VIEW(S) OF THE ABDOMEN 07/29/2024 12:37 pm COMPARISON: 07/21/2024 HISTORY: ORDERING SYSTEM PROVIDED HISTORY: abdominal pain TECHNOLOGIST PROVIDED HISTORY: abdominal pain Reason for Exam: Abdominal Pain FINDINGS: Ileus. No free air. No gross bony abnormality. IMPRESSION: Ileus [facility]ative[facility] X[facility] Abdomen Single viewOrdere d By: Rahul Rincon on 07-29-2024 [facility] Work Phone: Basic Metabolic Panelon 07-06 Anion gap [Moles/Vol] 7 mmol/L Low 9 - 16 mmol/L [facility] Calcium [Mass/Vol] 9.2 mg/dL 8.6 - 10.4 mg/dL [facility] Chloride [Moles/Vol] 105 mmol/L 98 - 107 mmol/L [facility] CO2 [Moles/Vol] 27 mmol/L 20 - 31 mmol/L [facility] Creatinine [Mass/Vol] 0.5 mg/dL Low 0.6 - 0.9 mg/dL [facility] Est, Glom Filt Rate - PINF [facility] Comment on above: These results are not intended for use in patients <18 years of age. eGFR results are calculated without a race factor using the 2020 CKD-EPI equation. Careful clinical correlation is recommended, particularly when comparing to results calculated using previous equations. The CKD-EPI equation is less accurate in patients with extremes of muscle mass, extra-renal metabolism of creatine, excessive creatine ingestion, or following therapy that affects renal tubular secretion. Glucose [Mass/Vol] 90 mg/dL 74 - 99 mg/dL [facility]ation and [facility] of [facility] results Abnormal [facility] Potassium [Moles/Vol] 5.0 mmol/L 3.7 - 5.3 mmol/L [facility] Sodium [Moles/Vol] 139 mmol/L 136 - 145 mmol/L [facility] Urea nitrogen [Mass/Vol] 10 mg/dL 6 - 20 mg/dL [facility] Basic Metabolic Profon 07-28 Anion gap [Moles/Vol] 7 mmol/L Low 9-16 [facility] Comment on above: Performed By: #### C RP, HCG, LIP, TROPI, CDP, CP #### [facility] [address] [place] [address] Ripsaw Matcher: Dioni Merlos MD Calcium [Mass/Vol] 9.2 mg/dL Normal 8.6-10.4 [facility] Comment on above: Performed By: #### C RP, HCG, LIP, TROPI, CDP, CP #### [facility] [address] [place] [address] Ripsaw Matcher: Dioni Merlos MD Chloride [Moles/Vol] 105 mmol/L Normal 98-107 [facility] Comment on above: Performed By: #### C RP, HCG, LIP, TROPI, CDP, CP #### [facility] [address] [place] [address] Ripsaw Matcher: Dioni Merlos MD CO2 [Moles/Vol] 27 mmol/L Normal 20-31 [facility] Comment on above: Performed By: #### C RP, HCG, LIP, TROPI, CDP, CP #### [facility] [address] [place] [address] Ripsaw Matcher: Dioni Merlos MD Creatinine [Mass/Vol] 0.5 mg/dL Low 0.6-0.9 [facility] Comment on above: Performed By: #### C RP, HCG, LIP, TROPI, CDP, CP #### [facility] [address] [place] [address] Ripsaw Matcher: Dioni Merlos MD GFR/1.73 sq M.predicted among non-blacks MDRD (S/P/Bld) [Vol rate/Area] mL/min/{1.73_m2} Normal >60 [facility] Comment on above: Result Comment: These results are not intended for use in patients <18 years of age. eGFR results are calculated without a race factor using the 2020 CKD-EPI equation. Careful clinical correlation is recommended, particularly when comparing to results calculated using previous equations. The CKD-EPI equation is less accurate in patients with extremes of muscle mass, extra-renal metabolism of creatine, excessive creatine ingestion, or following therapy that affects renal tubular secretion. Performed By: #### C RP, HCG, LIP, TROPI, CDP, CP #### [facility] [address] [place] [address] Ripsaw Matcher: Dioni Merlos MD Glucose [Mass/Vol] 90 mg/dL Normal 74-99 [facility] Comment on above: Performed By: #### C RP, HCG, LIP, TROPI, CDP, CP #### [facility] [address] [place] [address] Ripsaw Matcher: Dioni Merlos MD Potassium [Moles/Vol] 5.0 mmol/L Normal 3.7-5.3 [facility] Comment on above: Performed By: #### C RP, HCG, LIP, TROPI, CDP, CP #### [facility] [address] [place] [address] Ripsaw Matcher: Dioni Merlos MD Sodium [Moles/Vol] 139 mmol/L Normal 136-145 [facility] Comment on above: Performed By: #### C RP, HCG, LIP, TROPI, CDP, CP #### [facility] [address] [place] [address] Ripsaw Matcher: Dioni Merlos MD Urea nitrogen [Mass/Vol] 10 mg/dL Normal 6-20 [facility] Comment on above: Performed By: #### C RP, HCG, LIP, TROPI, CDP, CP #### [facility] [address] [place] [address] Ripsaw Matcher: Dioni Merlos MD CBCon 07-28-2024 Erythrocyte distribution width (RBC) [Ratio] 16.0 % High 11.8 - 14.4 % [facility] Hematocrit (Bld) [Volume fraction] 35.8 % Low 36.3 - 47.1 % [facility] Hemoglobin (Bld) [Mass/Vol] 11.0 g/dL Low 11.9 - 15.1 g/dL [facility] Interpretation and review of laboratory results Abnormal [facility] MCH (RBC) [Entitic mass] 27.6 pg 25.2 - 33.5 pg [facility] MCHC (RBC) [Mass/Vol] 30.7 g/dL 28.4 - 34.8 g/dL [facility] MCV (RBC) [Entitic vol] 89.9 fL 82.6 - 102.9 fL [facility] Nucleated RBC/100 WBC (Bld) [Ratio] 0.0 % 0.0 per 100 WBC [facility] Platelet mean volume (Bld) [Entitic vol] 11.4 fL 8.1 - 13.5 fL [facility] Platelets (Bld) [#/Vol] 222 10*3/uL [facility] RBC (Bld) [#/Vol] 3.98 10*6/uL 3.95 - 5.11 m/uL [facility] WBC other (Bld) [#/Vol] 5.0 [facility] Erythrocyte distribution width (RBC) [Ratio] 16.0 % High 11.8-14.4 [facility] Comment on above: Performed By: #### C RP, HCG, LIP, TROPI, CDP, CP #### [facility] [address] [place] [address] Ripsaw Matcher: Dioni Merlos MD Hematocrit (Bld) [Volume fraction] 35.8 % Low 36.3-47.1 [facility] Comment on above: Performed By: #### C RP, HCG, LIP, TROPI, CDP, CP #### [facility] [address] [place] [address] Ripsaw Matcher: Dioni Merlos MD Hemoglobin (Bld) [Mass/Vol] 11.0 g/dL Low 11.9-15.1 [facility] Comment on above: Performed By: #### C RP, HCG, LIP, TROPI, CDP, CP #### [address] [address] Ripsaw Matcher: Dioni Merlos MD MCH (RBC) [Entitic mass] 27.6 pg Normal 25.2-33.5 [facility] Comment on above: Performed By: #### C RP, HCG, LIP, TROPI, CDP, CP #### [address] [address] Ripsaw Matcher: Dioni Merlos MD MCHC (RBC) [Mass/Vol] 30.7 g/dL Normal 28.4-34.8 [facility] Comment on above: Performed By: #### C RP, HCG, LIP, TROPI, CDP, CP #### [address] [address] Ripsaw Matcher: Dioni Merlos MD MCV (RBC) [Entitic vol] 89.9 fL Normal 82.6-102.9 [facility] Comment on above: Performed By: #### C RP, HCG, LIP, TROPI, CDP, CP #### [address] [address] Ripsaw Matcher: Dioni Merlos MD NRBC Automated 0.0 per 100 WBC Normal 0.0 [facility] Comment on above: Performed By: #### C RP, HCG, LIP, TROPI, CDP, CP #### [address] [address] Ripsaw Matcher: Dioni Merlos MD Platelet mean volume (Bld) [Entitic vol] 11.4 fL Normal 8.1-13.5 [facility] Comment on above: Performed By: #### C RP, HCG, LIP, TROPI, CDP, CP #### [address] [address] Ripsaw Matcher: Dioni Merlos MD Platelets (Bld) [#/Vol] 222 10*3/uL Normal 138-453 [facility] Comment on above: Performed By: #### C RP, HCG, LIP, TROPI, CDP, CP #### [facility] [address] [place] [address] Ripsaw Matcher: Dioni Merlos MD RBC (Bld) [#/Vol] 3.98 10*6/uL Normal 3.95-5.11 [facility] Comment on above: Performed By: #### C RP, HCG, LIP, TROPI, CDP, CP #### [facility] [place] [address] Ripsaw Matcher: Dioni Merlos MD WBC (Bld) [#/Vol] 5.0 10*3/uL Normal 3.5-11.3 [facility] Comment on above: Performed By: #### C RP, HCG, LIP, TROPI, CDP, CP #### [facility] [place] [address] Ripsaw Matcher: Dioni Merlos MD Magnesiumon 07-28-2024 Magnesium [Mass/Vol] 2.3 mg/dL 1.6 - 2.6 mg/dL [facility] Magnesium [Mass/Vol] 2.3 mg/dL Normal 1.6-2.6 [facility] Comment on above: Performed By: #### C RP, HCG, LIP, TROPI, CDP, CP #### [facility] [address] [place] [address] Ripsaw Matcher: Dioni Merlos MD No Panel Informationon 07-28 [facility] Phosphoruson 07-28-2024 Phosphate [Mass/Vol] 4.1 mg/dL 2.5 - 4.5 mg/dL [facility] Phosphorus, Inorg.on 025 Phosphorus, Inorg. 4.1 mg/dL Normal 2.5-4.5 [facility] Comment on above: Performed By: #### C RP, HCG, LIP, TROPI, CDP, CP #### [facility] [address] [place], [place] [id number] Ripsaw Matcher: Dioni Merlos MD Basic Metabolic Panelon 07-06 Anion gap [Moles/Vol] 9 mmol/L 9 - 16 mmol/L [facility] Calcium [Mass/Vol] 8.8 mg/dL 8.6 - 10.4 mg/dL [facility] Chloride [Moles/Vol] 102 mmol/L 98 - 107 mmol/L [facility] CO2 [Moles/Vol] 26 mmol/L 20 - 31 mmol/L [facility] Creatinine [Mass/Vol] 0.5 mg/dL Low 0.6 - 0.9 mg/dL [facility] Est, Glom Filt Rate - PINF [facility] Comment on above: These results are not intended for use in patients <18 years of age. eGFR results are calculated without a race factor using the 2020 CKD-EPI equation. Careful clinical correlation is recommended, particularly when comparing to results calculated using previous equations. The CKD-EPI equation is less accurate in patients with extremes of muscle mass, extra-renal metabolism of creatine, excessive creatine ingestion, or following therapy that affects renal tubular secretion. Glucose [Mass/Vol] 91 mg/dL 74 - 99 mg/dL [facility] Interpretation and review of laboratory results Abnormal [facility] Potassium [Moles/Vol] 4.3 mmol/L 3.7 - 5.3 mmol/L [facility] Sodium [Moles/Vol] 137 mmol/L 136 - 145 mmol/L [facility] Urea nitrogen [Mass/Vol] 8 mg/dL 6 - 20 mg/dL [facility] Basic Metabolic Profon 07-27 Anion gap [Moles/Vol] 9 mmol/L Normal -16 [facility] Comment on above: Performed By: #### C BC, LACTIC #### [facility] [address] [place], [place] [id number] Ripsaw Matcher: Dioni Merlos MD Calcium [Mass/Vol] 8.8 mg/dL Normal 8.6-10.4 [facility] Comment on above: Performed By: #### C BC, LACTIC #### [address] [address] Ripsaw Matcher: Dioni Merlos MD Chloride [Moles/Vol] 102 mmol/L Normal 98-107 [facility] Comment on above: Performed By: #### C BC, LACTIC #### [facility] [address] [place] [address] Ripsaw Matcher: Dioni Merlos MD CO2 [Moles/Vol] 26 mmol/L Normal 20-31 [facility] Comment on above: Performed By: #### C BC, LACTIC #### [address] [address] Ripsaw Matcher: Dioni Merlos MD Creatinine [Mass/Vol] 0.5 mg/dL Low 0.6-0.9 [facility] Comment on above: Performed By: #### C BC, LACTIC #### [address] [address] Ripsaw Matcher: Dioni Merlos MD GFR/1.73 sq M.predicted among non-blacks MDRD (S/P/Bld) [Vol rate/Area] mL/min/{1.73_m2} Normal >60 [facility] Comment on above: Result Comment: These results are not intended for use in patients <18 years of age. eGFR results are calculated without a race factor using the 2020 CKD-EPI equation. Careful clinical correlation is recommended, particularly when comparing to results calculated using previous equations. The CKD-EPI equation is less accurate in patients with extremes of muscle mass, extra-renal metabolism of creatine, excessive creatine ingestion, or following therapy that affects renal tubular secretion. Performed By: #### C BC, LACTIC #### [address] [address] Ripsaw Matcher: Dioni Merlos MD Glucose [Mass/Vol] 91 mg/dL Normal 74-99 [facility] Comment on above: Performed By: #### C BC, LACTIC #### [facility] [address] [place] [address] Ripsaw Matcher: Dioni Merlos MD Potassium [Moles/Vol] 4.3 mmol/L Normal 3.7-5.3 [facility] Comment on above: Performed By: #### C BC, LACTIC #### [facility] [address] [place] [address] Ripsaw Matcher: Dioni Merlos MD Sodium [Moles/Vol] 137 mmol/L Normal 136-145 [facility] Comment on above: Performed By: #### C BC, LACTIC #### [facility] [address] [place] [address] Ripsaw Matcher: Dioni Merlos MD Urea nitrogen [Mass/Vol] 8 mg/dL Normal 6-20 [facility] Comment on above: Performed By: #### C BC, LACTIC #### [facility] [address] [place] [address] Ripsaw Matcher: Dioni Merlos MD Magnesiumon 07-27-2024 Magnesium [Mass/Vol] 2.5 mg/dL 1.6 - 2.6 mg/dL [facility] Magnesium [Mass/Vol] 2.5 mg/dL Normal 1.6-2.6 [facility] Comment on above: Performed By: #### C BC, LACTIC #### [facility] [address] [place] [address] Ripsaw Matcher: Dioni Merlos MD No Panel Informationon 07-27 [facility] Phosphoruson 07-27-2024 Phosphate [Mass/Vol] 4.4 mg/dL 2.5 - 4.5 mg/dL [facility] Phosphorus, Inorg.on 025 Phosphorus, Inorg. 4.4 mg/dL Normal 2.5-4.5 [facility] Comment on above: Performed By: #### C BC, LACTIC #### [facility] [address] [place], [place] [id number] Ripsaw Matcher: Dioni Merlos MD Basic Metabolic Panelon 07-06 Anion gap [Moles/Vol] 7 mmol/L Low 9 - 16 mmol/L [facility] Calcium [Mass/Vol] 8.3 mg/dL Low 8.6 - 10.4 mg/dL [facility] Chloride [Moles/Vol] 106 mmol/L 98 - 107 mmol/L [facility] CO2 [Moles/Vol] 27 mmol/L 20 - 31 mmol/L [facility] Creatinine [Mass/Vol] 0.4 mg/dL Low 0.6 - 0.9 mg/dL [facility] Est, Glom Filt Rate - PINF [facility] Comment on above: These results are not intended for use in patients <18 years of age. eGFR results are calculated without a race factor using the 2020 CKD-EPI equation. Careful clinical correlation is recommended, particularly when comparing to results calculated using previous equations. The CKD-EPI equation is less accurate in patients with extremes of muscle mass, extra-renal metabolism of creatine, excessive creatine ingestion, or following therapy that affects renal tubular secretion. Glucose [Mass/Vol] 109 mg/dL High 74 - 99 mg/dL [facility] Interpretation and review of laboratory results Abnormal [facility] Potassium [Moles/Vol] 3.8 mmol/L 3.7 - 5.3 mmol/L [facility] Sodium [Moles/Vol] 140 mmol/L 136 - 145 mmol/L [facility] Urea nitrogen [Mass/Vol] 5 mg/dL Low 6 - 20 mg/dL [facility] Basic Metabolic Profon 07-25 Anion gap [Moles/Vol] 7 mmol/L Low 9-16 [facility] Comment on above: Performed By: #### C RP #### [facility] [address] [place], [place] [phone] Ripsaw Matcher: Dioni Merols MD Calcium [Mass/Vol] 8.3 mg/dL Low 8.6-10.4 [facility] Comment on above: Performed By: #### C RP #### [address] [address] Ripsaw Matcher: Dioni Merlos MD Chloride [Moles/Vol] 106 mmol/L Normal 98-107 [facility] Comment on above: Performed By: #### C RP #### [facility] [address] [place] [address] Ripsaw Matcher: Dioni Merlos MD CO2 [Moles/Vol] 27 mmol/L Normal 20-31 [facility] Comment on above: Performed By: #### C RP #### [address] [address] Ripsaw Matcher: Dioni Merlos MD Creatinine [Mass/Vol] 0.4 mg/dL Low 0.6-0.9 [facility] Comment on above: Performed By: #### C RP #### [address] [address] Ripsaw Matcher: iDoni Merlos MD GFR/1.73 sq M.predicted among non-blacks MDRD (S/P/Bld) [Vol rate/Area] mL/min/{1.73_m2} Normal >60 [facility] Comment on above: Result Comment: These results are not intended for use in patients <18 years of age. eGFR results are calculated without a race factor using the 2020 CKD-EPI equation. Careful clinical correlation is recommended, particularly when comparing to results calculated using previous equations. The CKD-EPI equation is less accurate in patients with extremes of muscle mass, extra-renal metabolism of creatine, excessive creatine ingestion, or following therapy that affects renal tubular secretion. Performed By: #### C RP #### [address] [address] Ripsaw Matcher: Dioni Merlos MD Glucose [Mass/Vol] 109 mg/dL High 74-99 [facility] Comment on above: Performed By: #### C RP #### [facility] [address] [place] [address] Ripsaw Matcher: Dioni Merlos MD Potassium [Moles/Vol] 3.8 mmol/L Normal 3.7-5.3 [facility] Comment on above: Performed By: #### C RP #### [facility] [address] [place] [address] Ripsaw Matcher: Dioni Merlos MD Sodium [Moles/Vol] 140 mmol/L Normal 136-145 [facility] Comment on above: Performed By: #### C RP #### [facility] [place] [address] Ripsaw Matcher: Dioni Merlos MD Urea nitrogen [Mass/Vol] 5 mg/dL Low 6-20 [facility] Comment on above: Performed By: #### C RP #### [facility] [address] [place] [address] Ripsaw Matcher: Dioni Merlos MD Calprotectin Stoolon 025 Calprotectin, Fecal 2730 ug/g High NINF - 49 ug/g B on [facility] Comment on above: (NOTE) REFERENCE INTERVAL: Calprotectin, Fecal by Immunoassay Less than 50 ug/g........Normal 50-120 ug/g..............Borderline elevated, test should be re-evaluated in 4-6 weeks. 121 ug/g or greater......Elevated Performed By: [facility] [address] [place] [address] Schedule Checker: Hugo Ramsey MD, PhD CLIA Number: [id number] Interpretation and review of laboratory results Abnormal [facility] Calprotectin, Fecalon 2024 Calprotectin, Fecal 2730 ug/g High <=49 [facility] Comment on above: Result Comment: (NOT E) REFERENCE INTERVAL: Calprotectin, Fecal by Immunoassay Less than 50 ug/g........Normal 50-120 ug/g..............Borderline elevated, test should be re-evaluated in 4-6 weeks. 121 ug/g or greater......Elevated Performed By: [facility] [address] [place] [id number] Schedule Checker: Hugo Ramsey MD, PhD CLIA Number: [id number] Performed By: #### C RP #### [facility] [address] [place] [address] Ripsaw Matcher: Dioni Merlos MD Magnesiumon 07-25-2024 Magnesium [Mass/Vol] 2.1 mg/dL 1.6 - 2.6 mg/dL [facility] Magnesium [Mass/Vol] 2.1 mg/dL Normal 1.6-2.6 [facility] Comment on above: Performed By: #### C BC, LACTIC #### [facility] [address] [place] [address] [id number] Ripsaw Matcher: Dioni Merlos MD No Panel Informationon 07-25 [facility] Phosphoruson 07-25-2024 Phosphate [Mass/Vol] 3.4 mg/dL 2.5 - 4.5 mg/dL [facility] Phosphorus, Inorg.on 025 Phosphorus, Inorg. 3.4 mg/dL Normal 2.5-4.5 [facility] Comment on above: Performed By: #### C BC, LACTIC #### [facility] [address] [place] [address] Ripsaw Matcher: Dioni Merlos MD Basic Metabolic Panelon 07-06 Anion gap [Moles/Vol] 8 mmol/L Low 9 - 16 mmol/L [facility] Calcium [Mass/Vol] 8.6 mg/dL 8.6 - 10.4 mg/dL [facility] Chloride [Moles/Vol] 107 mmol/L 98 - 107 mmol/L [facility] CO2 [Moles/Vol] 25 mmol/L 20 - 31 mmol/L [facility] Creatinine [Mass/Vol] 0.5 mg/dL Low 0.6 - 0.9 mg/dL [facility] Margarita Jauregui [facility] Comment on above: These results are not intended for use in patients <18 years of age. eGFR results are calculated without a race factor using the 2020 CKD-EPI equation. Careful clinical correlation is recommended, particularly when comparing to results calculated using previous equations. The CKD-EPI equation is less accurate in patients with extremes of muscle mass, extra-renal metabolism of creatine, excessive creatine ingestion, or following therapy that affects renal tubular secretion. Glucose [Mass/Vol] 108 mg/dL High 74 - 99 mg/dL [facility] Interpretation and review of laboratory results Abnormal [facility] Potassium [Moles/Vol] 3.6 mmol/L Low 3.7 - 5.3 mmol/L [facility] Comment on above: Specimen hemolysis h as exceeded the interference as defined by Luis. Value may be falsely increased. Suggest recollection if clinically indicated. Sodium [Moles/Vol] 140 mmol/L 136 - 145 mmol/L [facility] Urea nitrogen [Mass/Vol] mg/dL Low 6 - 20 mg/dL [facility] Basic Metabolic Profon 07-24 Anion gap [Moles/Vol] 8 mmol/L Low 9-16 [facility] Comment on above: Performed By: #### C BC, LACTIC #### [facility] [address] [place], [place] [phone] Ripsaw Matcher: Dioni Merlos MD Calcium [Mass/Vol] 8.6 mg/dL Normal 8.6-10.4 [facility] Comment on above: Performed By: #### C BC, LACTIC #### [facility] [address] [place], [place] [id number] Ripsaw Matcher: Dioni Merlos MD Chloride [Moles/Vol] 107 mmol/L Normal 98-107 [facility] Comment on above: Performed By: #### C BC, LACTIC #### [facility] [address] [place] [address] Ripsaw Matcher: Dioni Merlos MD CO2 [Moles/Vol] 25 mmol/L Normal 20-31 [facility] Comment on above: Performed By: #### C BC, LACTIC #### [facility] [address] [place] [address] Ripsaw Matcher: Dioni Merlos MD Creatinine [Mass/Vol] 0.5 mg/dL Low 0.6-0.9 [facility] Comment on above: Performed By: #### C BC, LACTIC #### [facility] [address] [place] [address] Ripsaw Matcher: Dioni Merlos MD GFR/1.73 sq M.predicted among non-blacks MDRD (S/P/Bld) [Vol rate/Area] mL/min/{1.73_m2} Normal >60 [facility] Comment on above: Result Comment: These results are not intended for use in patients <18 years of age. eGFR results are calculated without a race factor using the 2020 CKD-EPI equation. Careful clinical correlation is recommended, particularly when comparing to results calculated using previous equations. The CKD-EPI equation is less accurate in patients with extremes of muscle mass, extra-renal metabolism of creatine, excessive creatine ingestion, or following therapy that affects renal tubular secretion. Performed By: #### C BC, LACTIC #### [facility] [address] [place] [address] Ripsaw Matcher: Dioni Merlos MD Glucose [Mass/Vol] 108 mg/dL High 74-99 [facility] Comment on above: Performed By: #### C BC, LACTIC #### [facility] [address] [place] [address] Ripsaw Matcher: Dioni Merlos MD Potassium [Moles/Vol] 3.6 mmol/L Low 3.7-5.3 [facility] Comment on above: Result Comment: Spec imen hemolysis has exceeded the interference as defined by Luis. Value may be falsely increased. Suggest recollection if clinically indicated. Performed By: #### C BC, LACTIC #### [facility] [address] [place], [place] [phone] Ripsaw Matcher: Dioni Merlos MD Sodium [Moles/Vol] 140 mmol/L Normal 136-145 [facility] Comment on above: Performed By: #### C BC, LACTIC #### [facility] [address] [place], [place] [phone] Ripsaw Matcher: Dioni Merlos MD Urea nitrogen [Mass/Vol] mg/dL Low 6-20 [facility] Comment on above: Performed By: #### C BC, LACTIC #### [facility] [address] [place], [place] [phone] Ripsaw Matcher: Dioni Merlos MD CBCon 07-24-2024 Erythrocyte distribution width (RBC) [Ratio] 15.9 % High 11.8 - 14.4 % [facility] Hematocrit (Bld) [Volume fraction] 32.6 % Low 36.3 - 47.1 % [facility] Hemoglobin (Bld) [Mass/Vol] 10.4 g/dL Low 11.9 - 15.1 g/dL [facility] Interpretation and review of laboratory results Abnormal [facility] MCH (RBC) [Entitic mass] 27.6 pg 25.2 - 33.5 pg [facility] MCHC (RBC) [Mass/Vol] 31.9 g/dL 28.4 - 34.8 g/dL [facility] MCV (RBC) [Entitic vol] 86.5 fL 82.6 - 102.9 fL [facility] Nucleated RBC/100 WBC (Bld) [Ratio] 0.0 % 0.0 per 100 WBC [facility] Platelet mean volume (Bld) [Entitic vol] 9.7 fL 8.1 - 13.5 fL [facility] Platelets (Bld) [#/Vol] 219 10*3/uL [facility] RBC (Bld) [#/Vol] 3.77 10*6/uL Low 3.95 - 5.11 m/uL [facility] WBC other (Bld) [#/Vol] 4.9 [facility] Erythrocyte distribution width (RBC) [Ratio] 15.9 % High 11.8-14.4 [facility] Comment on above: Performed By: #### C RP, HCG, LIP, TROPI, CDP, CP #### [facility] [address] [place] [address] Ripsaw Matcher: Dioni Merlos MD Hematocrit (Bld) [Volume fraction] 32.6 % Low 36.3-47.1 [facility] Comment on above: Performed By: #### C RP, HCG, LIP, TROPI, CDP, CP #### [facility] [address] [place] [address] Ripsaw Matcher: Dioni Merlos MD Hemoglobin (Bld) [Mass/Vol] 10.4 g/dL Low 11.9-15.1 [facility] Comment on above: Performed By: #### C RP, HCG, LIP, TROPI, CDP, CP #### [facility] [address] [place] [address] Ripsaw Matcher: Dioni Merlos MD MCH (RBC) [Entitic mass] 27.6 pg Normal 25.2-33.5 [facility] Comment on above: Performed By: #### C RP, HCG, LIP, TROPI, CDP, CP #### [facility] [address] [place] [address] Ripsaw Matcher: Dioni Merlos MD MCHC (RBC) [Mass/Vol] 31.9 g/dL Normal 28.4-34.8 [facility] Comment on above: Performed By: #### C RP, HCG, LIP, TROPI, CDP, CP #### [employer] [facility] [address] [place] [address] Ripsaw Matcher: Dioni Merlos MD MCV (RBC) [Entitic vol] 86.5 fL Normal 82.6-102.9 [facility] Comment on above: Performed By: #### C RP, HCG, LIP, TROPI, CDP, CP #### [address] [address] Ripsaw Matcher: Dioni Merlos MD NRBC Automated 0.0 per 100 WBC Normal 0.0 [facility] Comment on above: Performed By: #### C RP, HCG, LIP, TROPI, CDP, CP #### [address] [address] Ripsaw Matcher: Dioni Merlos MD Platelet mean volume (Bld) [Entitic vol] 9.7 fL Normal 8.1-13.5 [facility] Comment on above: Performed By: #### C RP, HCG, LIP, TROPI, CDP, CP #### [address] [address] Ripsaw Matcher: Dioni Merlos MD Platelets (Bld) [#/Vol] 219 10*3/uL Normal 138-453 [facility] Comment on above: Performed By: #### C RP, HCG, LIP, TROPI, CDP, CP #### [address] [address] Ripsaw Matcher: Dioni Merlos MD RBC (Bld) [#/Vol] 3.77 10*6/uL Low 3.95-5.11 [facility] Comment on above: Performed By: #### C RP, HCG, LIP, TROPI, CDP, CP #### [address] [address] Ripsaw Matcher: Dioni Merlos MD WBC (Bld) [#/Vol] 4.9 10*3/uL Normal 3.5-11.3 [facility] Comment on above: Performed By: #### C RP, HCG, LIP, TROPI, CDP, CP #### [facility] [address] [place] [address] Ripsaw Matcher: Dioni Merlos MD Glucose,Whole Bloodon 2024 Glucose [Mass/Vol] 107 mg/dL High 65-105 [facility] Magnesiumon 07-24-2024 Magnesium [Mass/Vol] 1.9 mg/dL 1.6 - 2.6 mg/dL [facility] Magnesium [Mass/Vol] 1.9 mg/dL Normal 1.6-2.6 [facility] Comment on above: Performed By: #### C SABINA, LACTIC #### [facility] [address] [place] [address] Ripsaw Matcher: Dioni Merlos MD No Panel Informationon 07-24 [facility] Fetch MD POC Glucose Fingerstickon Glucose [Mass/Vol] 107 mg/dL High 65 - 105 mg/dL [facility] Interpretation and review of laboratory results Abnormal [facility] Phosphoruson 07-24-2024 Phosphate [Mass/Vol] 3.4 mg/dL 2.5 - 4.5 mg/dL [facility] Phosphorus, Inorg.on 025 Phosphorus, Inorg. 3.4 mg/dL Normal 2.5-4.5 [facility] Comment on above: Performed By: #### C SABINA, LACTIC #### [facility] [address] [place], [place] [id number] Ripsaw Matcher: Dioni Merlos MD Basic Metabolic Panelon 07-05 Anion gap [Moles/Vol] 12 mmol/L 9 - 16 mmol/L [facility] [employer] [facility] Calcium [Mass/Vol] 8.4 mg/dL Low 8.6 - 10.4 mg/dL [facility] Chloride [Moles/Vol] 107 mmol/L 98 - 107 mmol/L [facility] Fetch MD CO2 [Moles/Vol] 18 mmol/L Low 20 - 31 mmol/L [facility] Creatinine [Mass/Vol] 0.4 mg/dL Low 0.6 - 0.9 mg/dL [facility] Juventino, Margarita Franklin Rate - PINF [facility] Comment on above: These results are not intended for use in patients <18 years of age. eGFR results are calculated without a race factor using the 2020 CKD-EPI equation. Careful clinical correlation is recommended, particularly when comparing to results calculated using previous equations. The CKD-EPI equation is less accurate in patients with extremes of muscle mass, extra-renal metabolism of creatine, excessive creatine ingestion, or following therapy that affects renal tubular secretion. Glucose [Mass/Vol] 86 mg/dL 74 - 99 mg/dL [facility] Potassium [Moles/Vol] 3.8 mmol/L 3.7 - 5.3 mmol/L [facility] Comment on above: Specimen hemolysis h as exceeded the interference as defined by Luis. Value may be falsely increased. Suggest recollection if clinically indicated. Sodium [Moles/Vol] 137 mmol/L 136 - 145 mmol/L [facility] Urea nitrogen [Mass/Vol] mg/dL Low 6 - 20 mg/dL [facility] Basic Metabolic Profon 07-23 Anion gap [Moles/Vol] 12 mmol/L Normal 9-16 [facility] Comment on above: Performed By: #### C RP, HCG, LIP, TROPI, CDP, CP #### [facility] [place] [address] Ripsaw Matcher: Dioni Merlos MD Calcium [Mass/Vol] 8.4 mg/dL Low 8.6-10.4 [facility] Comment on above: Performed By: #### C RP, HCG, LIP, TROPI, CDP, CP #### [facility] [address] [place], [place] [id number] Ripsaw Matcher: Dioni Merlos MD Chloride [Moles/Vol] 107 mmol/L Normal 98-107 [facility] Comment on above: Performed By: #### C RP, HCG, LIP, TROPI, CDP, CP #### [facility] [address] [place] [address] Ripsaw Matcher: Dioni Merlos MD CO2 [Moles/Vol] 18 mmol/L Low 20-31 [facility] Comment on above: Performed By: #### C RP, HCG, LIP, TROPI, CDP, CP #### [address] [address] Ripsaw Matcher: Dioni Merlos MD Creatinine [Mass/Vol] 0.4 mg/dL Low 0.6-0.9 [facility] Comment on above: Performed By: #### C RP, HCG, LIP, TROPI, CDP, CP #### [address] [address] Ripsaw Matcher: Dioni Merlos MD GFR/1.73 sq M.predicted among non-blacks MDRD (S/P/Bld) [Vol rate/Area] mL/min/{1.73_m2} Normal >60 [facility] Comment on above: Result Comment: These results are not intended for use in patients <18 years of age. eGFR results are calculated without a race factor using the 2020 CKD-EPI equation. Careful clinical correlation is recommended, particularly when comparing to results calculated using previous equations. The CKD-EPI equation is less accurate in patients with extremes of muscle mass, extra-renal metabolism of creatine, excessive creatine ingestion, or following therapy that affects renal tubular secretion. Performed By: #### C RP, HCG, LIP, TROPI, CDP, CP #### [address] [address] Ripsaw Matcher: Dioni Merlos MD Glucose [Mass/Vol] 86 mg/dL Normal 74-99 [facility] Comment on above: Performed By: #### C RP, HCG, LIP, TROPI, CDP, CP #### [facility] [address] [place] [address] Ripsaw Matcher: Dioni Merlos MD Potassium [Moles/Vol] 3.8 mmol/L Normal 3.7-5.3 [facility] Comment on above: Result Comment: Spec imen hemolysis has exceeded the interference as defined by Luis. Value may be falsely increased. Suggest recollection if clinically indicated. Performed By: #### C RP, HCG, LIP, TROPI, CDP, CP #### [facility] [address] [place], [place] [id number] Ripsaw Matcher: Dioni Merlos MD Sodium [Moles/Vol] 137 mmol/L Normal 136-145 [facility] Comment on above: Performed By: #### C RP, HCG, LIP, TROPI, CDP, CP #### [facility] [address] [place], [place] [id number] Ripsaw Matcher: Dioni Merlos MD Urea nitrogen [Mass/Vol] mg/dL Low 6-20 [facility] Comment on above: Performed By: #### C RP, HCG, LIP, TROPI, CDP, CP #### [facility] [address] [place], [place] [id number] Ripsaw Matcher: Dioni Merlos MD CBCon 07-23-2024 Erythrocyte distribution width (RBC) [Ratio] 15.7 % High 11.8 - 14.4 % [facility] Hematocrit (Bld) [Volume fraction] 38.1 % 36.3 - 47.1 % [facility] Hemoglobin (Bld) [Mass/Vol] 11.6 g/dL Low 11.9 - 15.1 g/dL [facility] Interpretation and review of laboratory results Abnormal [facility] MCH (RBC) [Entitic mass] 28.0 pg 25.2 - 33.5 pg [facility] MCHC (RBC) [Mass/Vol] 30.4 g/dL 28.4 - 34.8 g/dL [facility] MCV (RBC) [Entitic vol] 91.8 fL 82.6 - 102.9 fL [facility] Nucleated RBC/100 WBC (Bld) [Ratio] 0.0 % 0.0 per 100 WBC [facility] Platelet mean volume (Bld) [Entitic vol] 9.9 fL 8.1 - 13.5 fL [facility] Platelets (Bld) [#/Vol] 177 10*3/uL [facility] RBC (Bld) [#/Vol] 4.15 10*6/uL 3.95 - 5.11 m/uL [facility] WBC other (Bld) [#/Vol] 4.9 [facility] Erythrocyte distribution width (RBC) [Ratio] 15.7 % High 11.8-14.4 [facility] Comment on above: Performed By: #### C BC, LACTIC #### [facility] [address] [place] [address] Ripsaw Matcher: Dioni Merlos MD Hematocrit (Bld) [Volume fraction] 38.1 % Normal 36.3-47.1 [facility] Comment on above: Performed By: #### C BC, LACTIC #### [facility] [address] [place] [address] Ripsaw Matcher: Dioni Merlos MD Hemoglobin (Bld) [Mass/Vol] 11.6 g/dL Low 11.9-15.1 [facility] Comment on above: Performed By: #### C BC, LACTIC #### [facility] [address] [place] [address] Ripsaw Matcher: Dioni Merlos MD MCH (RBC) [Entitic mass] 28.0 pg Normal 25.2-33.5 [facility] Comment on above: Performed By: #### C BC, LACTIC #### [facility] [address] [place] [address] Ripsaw Matcher: Dioni Merlos MD MCHC (RBC) [Mass/Vol] 30.4 g/dL Normal 28.4-34.8 [facility] Comment on above: Performed By: #### C BC, LACTIC #### [employer] [facility] [address] [place] [address] Ripsaw Matcher: Dioni Merlos MD MCV (RBC) [Entitic vol] 91.8 fL Normal 82.6-102.9 [facility] Comment on above: Performed By: #### C BC, LACTIC #### [facility] [place] [address] Ripsaw Matcher: Dioni Merlos MD NRBC Automated 0.0 per 100 WBC Normal 0.0 [facility] Comment on above: Performed By: #### C BC, LACTIC #### [facility] [address] [place] [address] Ripsaw Matcher: Dioni Merlos MD Platelet mean volume (Bld) [Entitic vol] 9.9 fL Normal 8.1-13.5 [facility] Comment on above: Performed By: #### C BC, LACTIC #### [address] [address] Ripsaw Matcher: Dioni Merlos MD Platelets (Bld) [#/Vol] 177 10*3/uL Normal 138-453 [facility] Comment on above: Performed By: #### C BC, LACTIC #### [address] [address] Ripsaw Matcher: Dioni Merlos MD RBC (Bld) [#/Vol] 4.15 10*6/uL Normal 3.95-5.11 [facility] Comment on above: Performed By: #### C BC, LACTIC #### [facility] [address] [place] [address] Ripsaw Matcher: Dioni Merlos MD WBC (Bld) [#/Vol] 4.9 10*3/uL Normal 3.5-11.3 [facility] Comment on above: Performed By: #### C BC, LACTIC #### [facility] [address] [place] [address] Ripsaw Matcher: Dioni Merlos MD Gastrointestinal Panel, Boo liu 07-23-2024 Campylobacter sp DNA CARLOTTA+probe Nom (Unsp spec) NEGATIVE: No Campylobacter spp. (jejuni or coli) DNA Detected NEGATIVE: No Campylobacter spp. (jejuni or coli) DNA Detecte [facility] E. coli enterotoxigenic eltA+estB genes CARLOTTA+probe Ql (Stl) NEGATIVE: No Enterotoxigenic E. coli (ETEC) Heat-labile and heat-stable (LT/ST) DNA Detected NEGATIVE: No Enterotoxigenic E. coli (ETEC) Heat-labile and [facility] P. shigelloides DNA CARLOTTA+probe Ql (Stl) Negative NEGATIVE: No Plesionomas shigelloides DNA Detected [facility] Salmonella sp DNA CARLOTTA+probe Ql (Unsp spec) Negative NEGATIVE: No Salmonella spp. DNA Detected [facility] Shiga toxin stx gene CARLOTTA+probe Nom (Unsp spec) Negative NEGATIVE: No Shiga toxin-producing gene(s) Detected [facility] Shigella sp DNA CARLOTTA+probe Ql (Unsp spec) Negative NEGATIVE: No Shigella spp. / EIEC DNA Detected [facility] Specimen Description .FECES [facility] V. cholerae+parahaemoly ticus rfbL+trkH+tnaA genes CARLOTTA+probe Ql (Stl) NEGATIVE: No Vibrio (V. vulnificus, V, parahaemolyticus and V. cholerae) DNA Detected NEGATIVE: No Vibrio (V. vulnificus, V, parahaemolyticus and [facility] Y. enterocolitica recN gene CARLOTTA+probe Ql (Stl) Negative NEGATIVE: No Yersinia enterocolitica DNA Detected [facility] Glucose,Whole Bloodon 2024 Glucose [Mass/Vol] 114 mg/dL High 65-105 [facility] Hepatic Function Panelon Albumin [Mass/Vol] 2.7 g/dL Low 3.5 - 5.2 g/dL [facility] Albumin/Globulin [Mass ratio] 1.0 {ratio} 1.0 - 2.5 [facility] ALP [Catalytic activity/Vol] 64 U/L 35 - 104 U/L [facility] ALT [Catalytic activity/Vol] U/L Low 10 - 35 U/L [facility] AST [Catalytic activity/Vol] 16 U/L 10 - 35 U/L [facility] Bilirubin [Mass/Vol] 0.2 mg/dL 0.0 - 1.2 mg/dL [facility] Bilirubin.direct [Mass/Vol] mg/dL 0.0 - 0.2 mg/dL [facility] Bilirubin.indirect [Mass/Vol] Can not be calculated 0.0 - 1.0 mg/dL [facility] Globulin (S) [Mass/Vol] 2.6 g/dL [facility] Protein [Mass/Vol] 5.3 g/dL Low 6.6 - 8.7 g/dL [facility] Liver Profileon 07-23-2024 Albumin [Mass/Vol] 2.7 g/dL Low 3.5-5.2 [facility] Comment on above: Performed By: #### C RP, HCG, LIP, TROPI, CDP, CP #### [facility] [address] [place] [address] Ripsaw Matcher: Dioni Merlos MD Albumin/Glob Ratio 1.0 Normal 1.0-2.5 [facility] Comment on above: Performed By: #### C RP, HCG, LIP, TROPI, CDP, CP #### [facility] [address] [place] [address] Ripsaw Matcher: Dioni Merlos MD Alkaline Phos 64 U/L Normal 35-104 [facility] Comment on above: Performed By: #### C RP, HCG, LIP, TROPI, CDP, CP #### [facility] [address] [place] [address] Ripsaw Matcher: Dioni Merlos MD ALT [Catalytic activity/Vol] U/L Low 10-35 [facility] Comment on above: Performed By: #### C RP, HCG, LIP, TROPI, CDP, CP #### [facility] [address] [place] [address] Ripsaw Matcher: Dioni Merlos MD AST [Catalytic activity/Vol] 16 U/L Normal 10-35 [facility] Comment on above: Performed By: #### C RP, HCG, LIP, TROPI, CDP, CP #### [address] [address] Ripsaw Matcher: Dioni Merlos MD Bilirubin [Mass/Vol] 0.2 mg/dL Normal 0.0-1.2 [facility] Comment on above: Performed By: #### C RP, HCG, LIP, TROPI, CDP, CP #### [address] [address] Ripsaw Matcher: Dioni Merlos MD Bilirubin, Indirect Can not be calculated Normal 0.0-1.0 [facility] Comment on above: Performed By: #### C RP, HCG, LIP, TROPI, CDP, CP #### [address] [address] Ripsaw Matcher: Dioni Merlos MD Bilirubin.indirect [Mass/Vol] mg/dL Normal 0.0-0.2 [facility] Comment on above: Performed By: #### C RP, HCG, LIP, TROPI, CDP, CP #### [address] [address] Ripsaw Matcher: Dioni Merlos MD Globulin (S) [Mass/Vol] 2.6 g/dL Normal [facility] Comment on above: Performed By: #### C RP, HCG, LIP, TROPI, CDP, CP #### [address] [address] Ripsaw Matcher: Dioni Merlos MD Protein [Mass/Vol] 5.3 g/dL Low 6.6-8.7 [facility] Comment on above: Performed By: #### C RP, HCG, LIP, TROPI, CDP, CP #### [facility] [address] [place] [address] [phone] Ripsaw Matcher: Dioni Merlos MD Magnesiumon 07-23-2024 Magnesium [Mass/Vol] 2.0 mg/dL 1.6 - 2.6 mg/dL [facility] Magnesium [Mass/Vol] 2.0 mg/dL Normal 1.6-2.6 [facility] Comment on above: Performed By: #### C RP, HCG, LIP, TROPI, CDP, CP #### [facility] [address] [place] [address] [phone] Ripsaw Matcher: Dioni Merlos MD No Panel Informationon 07-23 Interpretation and review of laboratory results Abnormal [facility] POC Glucose Fingerstickon Glucose [Mass/Vol] 114 mg/dL High 65 - 105 mg/dL Jose R [facility] Interpretation and review of laboratory results Abnormal [facility] Phosphoruson 07-23-2024 Phosphate [Mass/Vol] 2.9 mg/dL 2.5 - 4.5 mg/dL [facility] Phosphorus, Inorg.on 025 Phosphorus, Inorg. 2.9 mg/dL Normal 2.5-4.5 [facility] Comment on above: Performed By: #### C RP, HCG, LIP, TROPI, CDP, CP #### [facility] [address] [place] [address] Ripsaw Matcher: Dioni Merlos MD Stool PCR Batteryon 07-23-19 25 Campylobacter sp PCR NEGATIVE: No Campylobacter spp. (jejuni or coli) DNA Detected Normal CAMNEG [facility] Comment on above: Performed By: #### C RP #### [facility] [address] [place] [address] [phone] Ripsaw Matcher: Dioni Merlos MD E coli enterotox PCR NEGATIVE: No Enterotoxigenic E. coli (ETEC) Heat-labile and heat-stable (LT/ST) Normal EECNEG [facility] Comment on above: Result Comment: DNA Detected Performed By: #### C RP #### [address] [address] Ripsaw Matcher: Dioni Merlos MD Plesiomonas sp PCR Negative Normal PLENEG [facility] Comment on above: Performed By: #### C RP #### [address] [address] Ripsaw Matcher: Dioni Merlos MD Salmonella sp PCR Negative Normal SALNEG [facility] Comment on above: Performed By: #### C RP #### [address] [address] Ripsaw Matcher: Dioni Merlos MD Shigatoxin gene PCR Negative Normal STXNEG [facility] Comment on above: Performed By: #### C RP #### [address] [address] Ripsaw Matcher: Dioni Merlos MD Shigella sp PCR Negative Normal SHINEG [facility] Comment on above: Performed By: #### C RP #### [address] [address] Ripsaw Matcher: Dioni Merlos MD Vibrio sp PCR NEGATIVE: No Vibrio (V. vulnificus, V, parahaemolyticus and V. cholerae) DNA Normal VIBNEG [facility] Comment on above: Result Comment: Dete cted Performed By: #### C RP #### [address] [address] Ripsaw Matcher: Dioni Merlos MD Yersinia gene PCR Negative Normal YERNEG [facility] Comment on above: Performed By: #### C RP #### [address] [address] Ripsaw Matcher: Dioni Merlos MD Triglycerideon 07-23-2024 Triglyceride [Mass/Vol] 124 mg/dL NINF - 150 mg/dL [facility] Comment on above: Triglyceride Guidelines: <150 Desirable 150-199 Borderline 200-499 High >499 Very high Based on AHA Guidelines for fasting triglyceride, April 2012. Triglycerideson 07-23-2024 Triglyceride [Mass/Vol] 124 mg/dL Normal <150 [facility] Comment on above: Result Comment: Triglyceride Guidelines: <150 Desirable 150-199 Borderline 200-499 High >499 Very high Based on AHA Guidelines for fasting triglyceride, April 2012. Performed By: #### C RP, HCG, LIP, TROPI, CDP, CP #### [facility] [address] [place] [address] Ripsaw Matcher: Dioni Merlos MD CBC with Auto Differentialon 07-22-2024 Basophils (Bld) [#/Vol] 0.04 10*3/uL [facility] Basophils/100 WBC (Bld) 1 % 0 - 2 % [facility] Eosinophils (Bld) [#/Vol] 0.19 10*3/uL [facility] Eosinophils/100 WBC (Bld) 3 % 1 - 4 % [facility] Erythrocyte distribution width (RBC) [Ratio] 15.4 % High 11.8 - 14.4 % [facility] Hematocrit (Bld) [Volume fraction] 39.4 % 36.3 - 47.1 % [facility] Hemoglobin (Bld) [Mass/Vol] 11.8 g/dL Low 11.9 - 15.1 g/dL [facility] Immature granulocytes (Bld) [#/Vol] [facility] Immature granulocytes/100 WBC (Bld) 0 % 0 [facility] Interpretation and review of laboratory results Abnormal [facility] Lymphocytes/100 WBC (Bld) 14 % Low 24 - 43 % [facility] Lymphocytes/100 WBC (Bld) 0.79 % Low [facility] MCH (RBC) [Entitic mass] 27.5 pg 25.2 - 33.5 pg [facility] MCHC (RBC) [Mass/Vol] 29.9 g/dL 28.4 - 34.8 g/dL [facility] MCV (RBC) [Entitic vol] 91.8 fL 82.6 - 102.9 fL [facility] Monocytes/100 WBC (Bld) 8 % 3 - 12 % [facility] Monocytes/100 WBC (Bld) 0.46 % [facility] Neutrophils/100 WBC (Bld) 73 % High 36 - 65 % [facility] Nucleated RBC/100 WBC (Bld) [Ratio] 0.0 % 0.0 per 100 WBC [facility] Platelet mean volume (Bld) [Entitic vol] 9.4 fL 8.1 - 13.5 fL [facility] Platelets (Bld) [#/Vol] 294 10*3/uL [facility] RBC (Bld) [#/Vol] 4.29 10*6/uL 3.95 - 5.11 m/uL [facility] RBC (Bld) [#/Vol] ANISOCYTOSIS PRESENT [facility] Segmented neutrophils/100 WBC (Bld) 4.04 % [facility] WBC other (Bld) [#/Vol] 5.5 [facility] Center[facility] Center[facility] CBC with Diffon 07-22-2024 Abs. Basophil 0.04 k/uL Normal 0.00-0.20 [facility] Comment on above: Performed By: #### C RP, HCG, LIP, TROPI, CDP, CP #### [employer] [address] [place] [address] Ripsaw Matcher: Dioni Merlos MD Abs.Imm.Granulocyte <0.03 Normal 0.00-0.30 [facility] Comment on above: Performed By: #### C RP, HCG, LIP, TROPI, CDP, CP #### [employer] [address] [place], [place] [phone] Ripsaw Matcher: Dioni Merlos MD Abs.Neutrophil (Seg) 4.04 k/uL Normal 1.50-8.10 [facility] Comment on above: Performed By: #### C RP, HCG, LIP, TROPI, CDP, CP #### [employer] [address] [place] [address] [phone] Ripsaw Matcher: Dioni Merlos MD Basophils/100 WBC (Bld) 1 % Normal 0-2 [facility] Comment on above: Performed By: #### C RP, HCG, LIP, TROPI, CDP, CP #### [address] [address] Ripsaw Matcher: Dioni Merlos MD Eosinophils (Bld) [#/Vol] 0.19 10*3/uL Normal 0.00-0.44 [facility] Comment on above: Performed By: #### C RP, HCG, LIP, TROPI, CDP, CP #### [place] [address] Ripsaw Matcher: Dioni Merlos MD Eosinophils/100 WBC (Bld) 3 % Normal 1-4 [facility] Comment on above: Performed By: #### C RP, HCG, LIP, TROPI, CDP, CP #### [place] [address] Ripsaw Matcher: Dioni Merlos MD Erythrocyte distribution width (RBC) [Ratio] 15.4 % High 11.8-14.4 [facility] Comment on above: Performed By: #### C RP, HCG, LIP, TROPI, CDP, CP #### [place] [address] Ripsaw Matcher: Dioni Merlos MD Hematocrit (Bld) [Volume fraction] 39.4 % Normal 36.3-47.1 [facility] Comment on above: Performed By: #### C RP, HCG, LIP, TROPI, CDP, CP #### [address] [address] Ripsaw Matcher: Dioni Merlos MD Hemoglobin (Bld) [Mass/Vol] 11.8 g/dL Low 11.9-15.1 [facility] Comment on above: Performed By: #### C RP, HCG, LIP, TROPI, CDP, CP #### [address] [address] Ripsaw Matcher: Dioni Merlos MD Immature granulocytes/100 WBC (Bld) 0 % Normal 0 [facility] Comment on above: Performed By: #### C RP, HCG, LIP, TROPI, CDP, CP #### [address] [address] Ripsaw Matcher: Dioni Merlos MD Lymphocytes (Bld) [#/Vol] 0.79 10*3/uL Low 1.10-3.70 [facility] Comment on above: Performed By: #### C RP, HCG, LIP, TROPI, CDP, CP #### [address] [address] Ripsaw Matcher: Dioni Merlos MD Lymphocytes/100 WBC (Bld) 14 % Low 24-43 [facility] Comment on above: Performed By: #### C RP, HCG, LIP, TROPI, CDP, CP #### [place] [address] Ripsaw Matcher: Dioni Merlos MD MCH (RBC) [Entitic mass] 27.5 pg Normal 25.2-33.5 [facility] Comment on above: Performed By: #### C RP, HCG, LIP, TROPI, CDP, CP #### [place] [address] Ripsaw Matcher: Dioni Merlos MD MCHC (RBC) [Mass/Vol] 29.9 g/dL Normal 28.4-34.8 [facility] Comment on above: Performed By: #### C RP, HCG, LIP, TROPI, CDP, CP #### [address] [address] Ripsaw Matcher: Dioni Merlos MD MCV (RBC) [Entitic vol] 91.8 fL Normal 82.6-102.9 [facility] Comment on above: Performed By: #### C RP, HCG, LIP, TROPI, CDP, CP #### [address] [address] Ripsaw Matcher: Dioni Merlos MD Monocytes (Bld) [#/Vol] 0.46 10*3/uL Normal 0.10-1.20 [facility] Comment on above: Performed By: #### C RP, HCG, LIP, TROPI, CDP, CP #### [address] [address] Ripsaw Matcher: Dioni Merlos MD Monocytes/100 WBC (Bld) 8 % Normal 3-12 [facility] Comment on above: Performed By: #### C RP, HCG, LIP, TROPI, CDP, CP #### [address] [address] Ripsaw Matcher: Dioni Merlos MD Neutrophil (Seg) 73 % High 36-65 [facility] Comment on above: Performed By: #### C RP, HCG, LIP, TROPI, CDP, CP #### [address] [address] Ripsaw Matcher: Dioni Merlos MD NRBC Automated 0.0 per 100 WBC Normal 0.0 [facility] Comment on above: Performed By: #### C RP, HCG, LIP, TROPI, CDP, CP #### [address] [address] Ripsaw Matcher: Dioni Merlos MD Platelet mean volume (Bld) [Entitic vol] 9.4 fL Normal 8.1-13.5 [facility] Comment on above: Performed By: #### C RP, HCG, LIP, TROPI, CDP, CP #### [address] [address] Ripsaw Matcher: Dioni Merlos MD Platelets (Bld) [#/Vol] 294 10*3/uL Normal 138-453 [facility] Comment on above: Performed By: #### C RP, HCG, LIP, TROPI, CDP, CP #### [address] [address] Ripsaw Matcher: Dioni Merlos MD RBC (Bld) [#/Vol] 4.29 10*6/uL Normal 3.95-5.11 [facility] Comment on above: Performed By: #### C RP, HCG, LIP, TROPI, CDP, CP #### [address] [address] Ripsaw Matcher: Dioni Merlos MD RBC morphology finding Nom (Bld) ANISOCYTOSIS PRESENT Normal [facility] Comment on above: Performed By: #### C RP, HCG, LIP, TROPI, CDP, CP #### [address] [address] Ripsaw Matcher: Dioni Merlos MD WBC (Bld) [#/Vol] 5.5 10*3/uL Normal 3.5-11.3 [facility] Comment on above: Performed By: #### C RP, HCG, LIP, TROPI, CDP, CP #### [address] [address] Ripsaw Matcher: Dioni Merlos MD Comp Metabolic Profon 2024 Albumin [Mass/Vol] 3.1 g/dL Low 3.5-5.2 [facility] Comment on above: Performed By: #### C RP, HCG, LIP, TROPI, CDP, CP #### [facility] [address] [place] [address] Ripsaw Matcher: Dioni Merlos MD Albumin/Glob Ratio 1.1 Normal 1.0-2.5 [facility] Comment on above: Performed By: #### C RP, HCG, LIP, TROPI, CDP, CP #### [address] [address] Ripsaw Matcher: Dioni Merlos MD Alkaline Phos 72 U/L Normal 35-104 [facility] Comment on above: Performed By: #### C RP, HCG, LIP, TROPI, CDP, CP #### [address] [address] Ripsaw Matcher: Dioni Merlos MD ALT [Catalytic activity/Vol] U/L Low 10-35 [facility] Comment on above: Performed By: #### C RP, HCG, LIP, TROPI, CDP, CP #### [address] [address] Ripsaw Matcher: Dioni Merlos MD Anion gap [Moles/Vol] 14 mmol/L Normal 9-16 [facility] Comment on above: Performed By: #### C RP, HCG, LIP, TROPI, CDP, CP #### [address] [address] Ripsaw Matcher: Dioni Merlos MD AST [Catalytic activity/Vol] 15 U/L Normal 10-35 [facility] Comment on above: Performed By: #### C RP, HCG, LIP, TROPI, CDP, CP #### [address] [address] Ripsaw Matcher: Dioni Merlos MD Bilirubin [Mass/Vol] 0.2 mg/dL Normal 0.0-1.2 [facility] Comment on above: Performed By: #### C RP, HCG, LIP, TROPI, CDP, CP #### [address] [address] Ripsaw Matcher: Dioni Merlos MD Calcium [Mass/Vol] 8.7 mg/dL Normal 8.6-10.4 [facility] Comment on above: Performed By: #### C RP, HCG, LIP, TROPI, CDP, CP #### [address] [address] Ripsaw Matcher: Dioni Merlos MD Chloride [Moles/Vol] 107 mmol/L Normal 98-107 [facility] Comment on above: Performed By: #### C RP, HCG, LIP, TROPI, CDP, CP #### [address] [address] Ripsaw Matcher: Dioni Merlos MD CO2 [Moles/Vol] 14 mmol/L Low 20-31 [facility] Comment on above: Performed By: #### C RP, HCG, LIP, TROPI, CDP, CP #### [address] [address] Ripsaw Matcher: Dioni Merlos MD Creatinine [Mass/Vol] 0.5 mg/dL Low 0.6-0.9 [facility] Comment on above: Performed By: #### C RP, HCG, LIP, TROPI, CDP, CP #### [address] [address] Ripsaw Matcher: Dioni Merlos MD GFR/1.73 sq M.predicted among non-blacks MDRD (S/P/Bld) [Vol rate/Area] mL/min/{1.73_m2} Normal >60 [facility] Comment on above: Result Comment: These results are not intended for use in patients <18 years of age. eGFR results are calculated without a race factor using the 2020 CKD-EPI equation. Careful clinical correlation is recommended, particularly when comparing to results calculated using previous equations. The CKD-EPI equation is less accurate in patients with extremes of muscle mass, extra-renal metabolism of creatine, excessive creatine ingestion, or following therapy that affects renal tubular secretion. Performed By: #### C RP, HCG, LIP, TROPI, CDP, CP #### [address] [id number] Ripsaw Matcher: Dioni Merlos MD Glucose [Mass/Vol] 72 mg/dL Low 74-99 [facility] Comment on above: Performed By: #### C RP, HCG, LIP, TROPI, CDP, CP #### [facility] [address] [place] [address] Ripsaw Matcher: Dioni Merlos MD Potassium [Moles/Vol] 4.6 mmol/L Normal 3.7-5.3 [facility] Comment on above: Performed By: #### C RP, HCG, LIP, TROPI, CDP, CP #### [facility] [address] [place] [address] Ripsaw Matcher: Dioni Merlos MD Protein [Mass/Vol] 5.9 g/dL Low 6.6-8.7 [facility] Comment on above: Performed By: #### C RP, HCG, LIP, TROPI, CDP, CP #### [facility] [address] [place] [address] Ripsaw Matcher: Dioni Merlos MD Sodium [Moles/Vol] 135 mmol/L Low 136-145 [facility] Comment on above: Performed By: #### C RP, HCG, LIP, TROPI, CDP, CP #### [facility] [address] [place] [address] Ripsaw Matcher: Dioni Merlos MD Urea nitrogen [Mass/Vol] mg/dL Low 6-20 [facility] Comment on above: Performed By: #### C RP, HCG, LIP, TROPI, CDP, CP #### [facility] [address] [place] [address] Ripsaw Matcher: Dioni Merlos MD Comprehensive Metabolic Pane [facility] 07-22-2024 Albumin [Mass/Vol] 3.1 g/dL Low 3.5 - 5.2 g/dL [facility] Albumin/Globulin [Mass ratio] 1.1 {ratio} 1.0 - 2.5 [facility] ALP [Catalytic activity/Vol] 72 U/L 35 - 104 U/L [facility] ALT [Catalytic activity/Vol] U/L Low 10 - 35 U/L [facility] Anion gap [Moles/Vol] 14 mmol/L 9 - 16 mmol/L [facility] AST [Catalytic activity/Vol] 15 U/L 10 - 35 U/L [facility] Bilirubin [Mass/Vol] 0.2 mg/dL 0.0 - 1.2 mg/dL [facility] Calcium [Mass/Vol] 8.7 mg/dL 8.6 - 10.4 mg/dL [facility] Chloride [Moles/Vol] 107 mmol/L 98 - 107 mmol/L [facility] CO2 [Moles/Vol] 14 mmol/L Low 20 - 31 mmol/L [facility] Creatinine [Mass/Vol] 0.5 mg/dL Low 0.6 - 0.9 mg/dL [facility] Est, Glom Filt Rate - PINF [facility] Comment on above: These results are not intended for use in patients <18 years of age. eGFR results are calculated without a race factor using the 2020 CKD-EPI equation. Careful clinical correlation is recommended, particularly when comparing to results calculated using previous equations. The CKD-EPI equation is less accurate in patients with extremes of muscle mass, extra-renal metabolism of creatine, excessive creatine ingestion, or following therapy that affects renal tubular secretion. Glucose [Mass/Vol] 72 mg/dL Low 74 - 99 mg/dL [facility] Interpretation and review of laboratory results Abnormal [facility] Potassium [Moles/Vol] 4.6 mmol/L 3.7 - 5.3 mmol/L [facility] Protein [Mass/Vol] 5.9 g/dL Low 6.6 - 8.7 g/dL [facility] Sodium [Moles/Vol] 135 mmol/L Low 136 - 145 mmol/L [facility] Urea nitrogen [Mass/Vol] mg/dL Low 6 - 20 mg/dL [facility] Lactic Acidon 07-22-2024 Lactic Acid, Whole Blood 1.0 mmol/L 0.7 - 2.1 mmol/L [facility] Lactic Acid,Whole Bl 1.0 mmol/L Normal 0.7-2.1 [facility] Comment on above: Performed By: #### L ACTIC #### [facility] [place], [place] [id number] Ripsaw Matcher: Dioni Merlos MD Lactic Acid, Whole Blood 1.0 mmol/L 0.7 - 2.1 mmol/L [facility] Lactic Acid,Whole Bl 1.0 mmol/L Normal 0.7-2.1 [facility] Comment on above: Performed By: #### L ACTIC #### [facility] [address] [place] [phone] Ripsaw Matcher: Dioni Merlos MD Lactic Acid, Whole Blood 0.9 mmol/L 0.7 - 2.1 mmol/L [facility] Lactic Acid,Whole Bl 0.9 mmol/L Normal 0.7-2.1 [facility] Comment on above: Performed By: #### C BC, LACTIC #### [facility] [address] [place] [phone] Ripsaw Matcher: Dioni Merlos MD C-Reactive Proteinon CRP High sensitivity method [Mass/Vol] 47.1 mg/L High 0.0 - 5.0 mg/L [facility] Interpretation and review of laboratory results Abnormal [facility] CRP [Mass/Vol] 47.1 mg/L High 0.0-5.0 [facility] Comment on above: Performed By: #### C RP, HCG, LIP, TROPI, CDP, CP #### [facility] [place], [place] [id number] Ripsaw Matcher: Dioni Merlos MD Lactic Acidon 07-21-2024 Lactic Acid, Whole Blood 0.7 mmol/L 0.7 - 2.1 mmol/L [facility] Lactic Acid,Whole Bl 0.7 mmol/L Normal 0.7-2.1 [facility] Comment on above: Performed By: #### C RP #### [facility] [address] [place] [address] Ripsaw Matcher: Dioni Merlos MD Lactic Acid, Whole Blood 0.8 mmol/L 0.7 - 2.1 mmol/L [facility] Lactic Acid,Whole Bl 0.8 mmol/L Normal 0.7-2.1 [facility] Comment on above: Performed By: #### C RP, HCG, LIP, TROPI, CDP, CP #### [facility] [address] [place] [address] Ripsaw Matcher: Dioni Merlos MD Lactic Acid, Whole Blood 0.8 mmol/L 0.7 - 2.1 mmol/L [facility] Lactic Acid,Whole Bl 0.8 mmol/L Normal 0.7-2.1 [facility] Comment on above: Performed By: #### C BC, LACTIC #### [facility] [address] [place] [address] Ripsaw Matcher: Dioni Merlos MD Sedimentation Rateon 025 ESR Photometric method (Bld) [Velocity] 24 High [facility] Interpretation and review of laboratory results Abnormal [facility] Sedimentation Rate 24 mm/Hr High 0-20 [facility] Comment on above: Performed By: #### C RP, HCG, LIP, TROPI, CDP, CP #### [facility] [address] [place] [address] Ripsaw Matcher: Dioni Merlos MD XR ABDOMEN FOR NG/OG/NE TUBE PLACEMENTon 07-21-2024 XR ABDOMEN FOR NG/OG/NE TUBE PLACEMENT EXAMINATION: ONE SUPINE XRAY VIEW(S) OF THE ABDOMEN 07/21/2024 9:41 pm COMPARISON: 07/20/2024, 07/19/2024 HISTORY: ORDERING SYSTEM PROVIDED HISTORY: ngt placement TECHNOLOGIST PROVIDED HISTORY: ngt placement Portable?->Yes Reason for Exam: port. upright FINDINGS: The enteric catheter tip terminates in the region of the mid to distal gastric body. Again identified are dilated loops of small bowel secondary to known enteritis and partial small bowel obstruction. No free air is identified. IMPRESSION: Enteric catheter tip terminates in the mid to distal gastric body. Interpreted by: Fartun Herrera MD Signed by: Fartun Herrera MD 07/21/24 Final result Normal [facility] Enteric catheter tip terminates in the mid to distal gastric body. [facility] EXAMINATION: ONE SUPINE XRAY VIEW(S) OF THE ABDOMEN 07/21/2024 9:41 pm COMPARISON: 07/20/2024, 07/19/2024 HISTORY: ORDERING SYSTEM PROVIDED HISTORY: ngt placement TECHNOLOGIST PROVIDED HISTORY: ngt placement Portable?->Yes Reason for Exam: port. upright FINDINGS: The enteric catheter tip terminates in the region of the mid to distal gastric body. Again identified are dilated loops of small bowel secondary to known enteritis and partial small bowel obstruction. No free air is identified. [facility] Fartun Herrera MD - 07/21/2024 EXAMINATION: ONE SUPINE XRAY VIEW(S) OF THE ABDOMEN 07/21/2024 9:41 pm COMPARISON: 07/20/2024, 07/19/2024 HISTORY: ORDERING SYSTEM PROVIDED HISTORY: ngt placement TECHNOLOGIST PROVIDED HISTORY: ngt placement Portable?->Yes Reason for Exam: port. upright FINDINGS: The enteric catheter tip terminates in the region of the mid to distal gastric body. Again identified are dilated loops of small bowel secondary to known enteritis and partial small bowel obstruction. No free air is identified. IMPRESSION: Enteric catheter tip terminates in the mid to distal gastric body. [facility] Radiology Study observation (narrative) [facility] XR ABDOMEN FOR NG/OG/NE TUBE PLACEMENTOrdered By: Fartun Herrera on 07-21-2024 [facility] Work Phone: Basic Metab w/rfx MGon 07-20 Anion gap [Moles/Vol] 10 mmol/L Normal 03-20 [facility] Comment on above: Performed By: #### C BC, LACTIC #### [facility] [place] [address] Ripsaw Matcher: Dioni Merlos MD Calcium [Mass/Vol] 8.0 mg/dL Low 8.6-10.4 [facility] Comment on above: Performed By: #### C BC, LACTIC #### [facility] [address] [place] [address] Ripsaw Matcher: Dioni Merlos MD Chloride [Moles/Vol] 103 mmol/L Normal 98-107 [facility] Comment on above: Performed By: #### C BC, LACTIC #### [facility] [address] [place] [address] Ripsaw Matcher: Dioni Merlos MD CO2 [Moles/Vol] 25 mmol/L Normal 20-31 [facility] Comment on above: Performed By: #### C BC, LACTIC #### [facility] [address] [place] [address] Ripsaw Matcher: Dioni Merlos MD Creatinine [Mass/Vol] 0.4 mg/dL Low 0.6-0.9 [facility] Comment on above: Performed By: #### C BC, LACTIC #### [address] [address] Ripsaw Matcher: Dioni Merlos MD GFR/1.73 sq M.predicted among non-blacks MDRD (S/P/Bld) [Vol rate/Area] mL/min/{1.73_m2} Normal >60 [facility] Comment on above: Result Comment: These results are not intended for use in patients <18 years of age. eGFR results are calculated without a race factor using the 2020 CKD-EPI equation. Careful clinical correlation is recommended, particularly when comparing to results calculated using previous equations. The CKD-EPI equation is less accurate in patients with extremes of muscle mass, extra-renal metabolism of creatine, excessive creatine ingestion, or following therapy that affects renal tubular secretion. Performed By: #### C BC, LACTIC #### [facility] [place] [address] Ripsaw Matcher: Dioni Merlos MD Glucose [Mass/Vol] 72 mg/dL Low 74-99 [facility] Comment on above: Performed By: #### C BC, LACTIC #### [facility] [address] [place] [address] Ripsaw Matcher: Dioni Merlos MD Potassium [Moles/Vol] 3.1 mmol/L Low 3.7-5.3 [facility] Comment on above: Performed By: #### C BC, LACTIC #### [facility] [address] [place] [address] Ripsaw Matcher: Dioni Merlos MD Sodium [Moles/Vol] 138 mmol/L Normal 136-145 [facility] Comment on above: Performed By: #### C BC, LACTIC #### [facility] [address] [place] [address] Ripsaw Matcher: Dioni Merlos MD Urea nitrogen [Mass/Vol] 4 mg/dL Low 6-20 [facility] Comment on above: Performed By: #### C BC, LACTIC #### [facility] [address] [place] [address] Ripsaw Matcher: Dioni Merlos MD Basic Metabolic Panel w/ Ref nkechi to on 07-20-2024 Anion gap [Moles/Vol] 10 mmol/L 9 - 16 mmol/L [facility] Calcium [Mass/Vol] 8.0 mg/dL Low 8.6 - 10.4 mg/dL [facility] Chloride [Moles/Vol] 103 mmol/L 98 - 107 mmol/L [facility] CO2 [Moles/Vol] 25 mmol/L 20 - 31 mmol/L [facility] Creatinine [Mass/Vol] 0.4 mg/dL Low 0.6 - 0.9 mg/dL [facility] Est, Margarita Franklin Rate - PINF [facility] Comment on above: These results are not intended for use in patients <18 years of age. eGFR results are calculated without a race factor using the 2020 CKD-EPI equation. Careful clinical correlation is recommended, particularly when comparing to results calculated using previous equations. The CKD-EPI equation is less accurate in patients with extremes of muscle mass, extra-renal metabolism of creatine, excessive creatine ingestion, or following therapy that affects renal tubular secretion. Glucose [Mass/Vol] 72 mg/dL Low 74 - 99 mg/dL [facility] Potassium [Moles/Vol] 3.1 mmol/L Low 3.7 - 5.3 mmol/L [facility] Sodium [Moles/Vol] 138 mmol/L 136 - 145 mmol/L [facility] Urea nitrogen [Mass/Vol] 4 mg/dL Low 6 - 20 mg/dL [facility] C-Reactive Proteinon 025 CRP High sensitivity method [Mass/Vol] 39.2 mg/L High 0.0 - 5.0 mg/L [facility] CRP [Mass/Vol] 39.2 mg/L High 0.0-5.0 [facility] Comment on above: Performed By: #### C , LACTIC #### [facility] [address] [place] [address] Ripsaw Matcher: Dioni Merlos MD CBC with Auto Differentialon 07-20-2024 Basophils (Bld) [#/Vol] 0.03 10*3/uL [facility] Basophils/100 WBC (Bld) 1 % 0 - 2 % [facility] Eosinophils (Bld) [#/Vol] 0.09 10*3/uL [facility] Eosinophils/100 WBC (Bld) 2 % 1 - 4 % [facility] Erythrocyte distribution width (RBC) [Ratio] 15.9 % High 11.8 - 14.4 % [facility] Hematocrit (Bld) [Volume fraction] 33.5 % Low 36.3 - 47.1 % [facility] Hemoglobin (Bld) [Mass/Vol] 10.9 g/dL Low 11.9 - 15.1 g/dL [facility] Immature granulocytes (Bld) [#/Vol] [facility] Immature granulocytes/100 WBC (Bld) 0 % 0 [facility] Interpretation and review of laboratory results Abnormal [facility] Lymphocytes/100 WBC (Bld) 20 % Low 24 - 43 % [facility] Lymphocytes/100 WBC (Bld) 0.97 % Low [facility] MCH (RBC) [Entitic mass] 27.7 pg 25.2 - 33.5 pg [facility] MCHC (RBC) [Mass/Vol] 32.5 g/dL 28.4 - 34.8 g/dL [facility] MCV (RBC) [Entitic vol] 85.2 fL 82.6 - 102.9 fL [facility] Monocytes/100 WBC (Bld) 11 % 3 - 12 % [facility] Monocytes/100 WBC (Bld) 0.53 % [facility] Neutrophils/100 WBC (Bld) 67 % High 36 - 65 % [facility] Nucleated RBC/100 WBC (Bld) [Ratio] 0.0 % 0.0 per 100 WBC [facility] Platelet mean volume (Bld) [Entitic vol] 9.6 fL 8.1 - 13.5 fL [facility] Platelets (Bld) [#/Vol] 223 10*3/uL [facility] RBC (Bld) [#/Vol] 3.93 10*6/uL Low 3.95 - 5.11 m/uL [facility] RBC (Bld) [#/Vol] ANISOCYTOSIS PRESENT [facility] Segmented neutrophils/100 WBC (Bld) 3.28 % [facility] WBC other (Bld) [#/Vol] 4.9 [facility] CBC with Diffon 07-20-2024 Abs. Basophil 0.03 k/uL Normal 0.00-0.20 [facility] Comment on above: Performed By: #### C BC, LACTIC #### [facility] [address] [place] [address] Ripsaw Matcher: Dioni Merlos MD Abs.Imm.Granulocyte <0.03 Normal 0.00-0.30 [facility] Comment on above: Performed By: #### C BC, LACTIC #### [address] [address] Ripsaw Matcher: Dioni Merlos MD Abs.Neutrophil (Seg) 3.28 k/uL Normal 1.50-8.10 [facility] Comment on above: Performed By: #### C BC, LACTIC #### [address] [address] Ripsaw Matcher: Dioni Merlos MD Basophils/100 WBC (Bld) 1 % Normal 0-2 [facility] Comment on above: Performed By: #### C BC, LACTIC #### [address] [address] Ripsaw Matcher: Dioni Merlos MD Eosinophils (Bld) [#/Vol] 0.09 10*3/uL Normal 0.00-0.44 [facility] Comment on above: Performed By: #### C BC, LACTIC #### [address] [address] Ripsaw Matcher: Dioni Merlos MD Eosinophils/100 WBC (Bld) 2 % Normal 1-4 [facility] Comment on above: Performed By: #### C BC, LACTIC #### [facility] [address] [place] [address] Ripsaw Matcher: Dioni Merlos MD Erythrocyte distribution width (RBC) [Ratio] 15.9 % High 11.8-14.4 [facility] Comment on above: Performed By: #### C BC, LACTIC #### [address] [address] Ripsaw Matcher: Dioni Merlos MD Hematocrit (Bld) [Volume fraction] 33.5 % Low 36.3-47.1 [facility] Comment on above: Performed By: #### C BC, LACTIC #### [address] [address] Ripsaw Matcher: Dioni Merlos MD Hemoglobin (Bld) [Mass/Vol] 10.9 g/dL Low 11.9-15.1 [facility] Comment on above: Performed By: #### C BC, LACTIC #### [address] [address] Ripsaw Matcher: Dioni Merlos MD Immature granulocytes/100 WBC (Bld) 0 % Normal 0 [facility] Comment on above: Performed By: #### C BC, LACTIC #### [address] [address] Ripsaw Matcher: Dioni Merlos MD Lymphocytes (Bld) [#/Vol] 0.97 10*3/uL Low 1.10-3.70 [facility] Comment on above: Performed By: #### C BC, LACTIC #### [address] [address] Ripsaw Matcher: Dioni Merlos MD Lymphocytes/100 WBC (Bld) 20 % Low 24-43 [facility] Comment on above: Performed By: #### C BC, LACTIC #### [address] [address] Ripsaw Matcher: Dioni Merlos MD MCH (RBC) [Entitic mass] 27.7 pg Normal 25.2-33.5 [facility] Comment on above: Performed By: #### C BC, LACTIC #### [address] [address] Ripsaw Matcher: Dioni Merlos MD MCHC (RBC) [Mass/Vol] 32.5 g/dL Normal 28.4-34.8 [facility] Comment on above: Performed By: #### C BC, LACTIC #### [address] [address] Ripsaw Matcher: Dioni Merlos MD MCV (RBC) [Entitic vol] 85.2 fL Normal 82.6-102.9 [facility] Comment on above: Performed By: #### C BC, LACTIC #### [address] [address] Ripsaw Matcher: Dioni Merlos MD Monocytes (Bld) [#/Vol] 0.53 10*3/uL Normal 0.10-1.20 [facility] Comment on above: Performed By: #### C BC, LACTIC #### [address] [address] Ripsaw Matcher: Dioni Merlos MD Monocytes/100 WBC (Bld) 11 % Normal 3-12 [facility] Comment on above: Performed By: #### C BC, LACTIC #### [address] [address] Ripsaw Matcher: Dioni Merlos MD Neutrophil (Seg) 67 % High 36-65 [facility] Comment on above: Performed By: #### C BC, LACTIC #### [address] [address] Ripsaw Matcher: Dioni Merlos MD NRBC Automated 0.0 per 100 WBC Normal 0.0 [facility] Comment on above: Performed By: #### C BC, LACTIC #### [facility] [address] [place] [address] Ripsaw Matcher: Dioni Merlos MD Platelet mean volume (Bld) [Entitic vol] 9.6 fL Normal 8.1-13.5 [facility] Comment on above: Performed By: #### C BC, LACTIC #### [address] [address] Ripsaw Matcher: Dioni Merlos MD Platelets (Bld) [#/Vol] 223 10*3/uL Normal 138-453 [facility] Comment on above: Performed By: #### C BC, LACTIC #### [facility] [address] [place] [address] Ripsaw Matcher: Dioni Merlos MD RBC (Bld) [#/Vol] 3.93 10*6/uL Low 3.95-5.11 [facility] Comment on above: Performed By: #### C BC, LACTIC #### [facility] [address] [place] [address] Ripsaw Matcher: Dioni Merlos MD RBC morphology finding Nom (Bld) ANISOCYTOSIS PRESENT Normal [facility] Comment on above: Performed By: #### C BC, LACTIC #### [facility] [address] [place] [address] Ripsaw Matcher: Dioni Merlos MD WBC (Bld) [#/Vol] 4.9 10*3/uL Normal 3.5-11.3 [facility] Comment on above: Performed By: #### C BC, LACTIC #### [facility] [address] [place] [address] Ripsaw Matcher: Dioni Merlos MD Ferritinon 07-20-2024 Ferritin [Mass/Vol] 164 ng/mL High 15 - 150 ng/mL B on [facility] Comment on above: FERRITIN Reference Ranges: Adult Males 20 - 60 years: 30 - 400 ng/mL Adult females 17 - 60 years: 13 - 150 ng/mL Adults greater than 60 years: no established reference range Pediatrics: no established reference range Ferritin [Mass/Vol] 164 ng/mL High 15-150 [facility] Comment on above: Result Comment: FERRITIN Reference Ranges: Adult Males 20 - 60 years: 30 - 400 ng/mL Adult females 17 - 60 years: 13 - 150 ng/mL Adults greater than 60 years: no established reference range Pediatrics: no established reference range Performed By: #### C BC, LACTIC #### [facility] [address] [place] [address], [place] [address] Ripsaw Matcher: Dioni Merlos MD Iron Binding Cap.on 07-20-19 25 % Fe Saturation 20 % Normal 20-55 [facility] Comment on above: Performed By: #### C BC, LACTIC #### [facility] [address] [place] [address] Ripsaw Matcher: Dioni Merlos MD Iron [Mass/Vol] 35 ug/dL Low 37-145 [facility] Comment on above: Performed By: #### C BC, LACTIC #### [facility] [address] [place] [address] Ripsaw Matcher: Dioni Merlos MD Total Fe Binding Cap 177 ug/dL Low 250-450 [facility] Comment on above: Performed By: #### C BC, LACTIC #### [facility] [address] [place] [address] Ripsaw Matcher: Dioni Merlos MD Unbound Fe Bind Cap 142 ug/dL Normal 112-347 [facility] Comment on above: Performed By: #### C BC, LACTIC #### [facility] [address] [place] [address] Ripsaw Matcher: Dioni Merlos MD Iron and TIBCon 07-20-2024 Iron [Mass/Vol] 35 ug/dL Low 37 - 145 ug/dL [facility] Iron binding capacity [Mass/Vol] 177 ug/dL Low 250 - 450 ug/dL [facility] Iron saturation [Mass fraction] 20 % 20 - 55 % [facility] UIBC 142 ug/dL 112 - 347 ug/dL [facility] Lactic Acidon 07-20-2024 Lactic Acid, Whole Blood 0.7 mmol/L 0.7 - 2.1 mmol/L [facility] Lactic Acid,Whole Bl 0.7 mmol/L Normal 0.7-2.1 [facility] Comment on above: Performed By: #### L ACTIC #### [facility] [place], [place] [id number] Ripsaw Matcher: Dioni Merlos MD Lactic Acid, Whole Blood 1.4 mmol/L 0.7 - 2.1 mmol/L [facility] Lactic Acid,Whole Bl 1.4 mmol/L Normal 0.7-2.1 [facility] Comment on above: Performed By: #### C RP #### [facility] [address] [place] [address] [id number] Ripsaw Matcher: Dioni Merlos MD Magnesiumon 07-20-2024 Magnesium [Mass/Vol] 1.7 mg/dL 1.6 - 2.6 mg/dL [facility] Magnesium [Mass/Vol] 1.7 mg/dL Normal 1.6-2.6 [facility] Comment on above: Performed By: #### C BC, LACTIC #### [facility] [address] [place] [address] [id number] Ripsaw Matcher: Dioni Merlos MD No Panel Informationon 07-20 Interpretation and review of laboratory results Abnormal [facility] Sedimentation Rateon 025 ESR Photometric method (Bld) [Velocity] 14 [facility] Sedimentation Rate 14 mm/Hr Normal 0-20 [facility] Comment on above: Performed By: #### C BC, LACTIC #### [facility] [address] [place] [address] [phone] Ripsaw Matcher: Dioni Merlos MD XR ABDOMEN (KUB) (SINGLE AP VIEW)on 07-20-2024 XR ABDOMEN (KUB) (SINGLE AP VIEW) EXAMINATION: ONE SUPINE XRAY VIEW(S) OF THE ABDOMEN 07/20/2024 7:16 am COMPARISON: None. HISTORY: ORDERING SYSTEM PROVIDED HISTORY: abdominal pain TECHNOLOGIST PROVIDED HISTORY: abdominal pain Reason for Exam: port sup FINDINGS: Lines and tubes: None Bowel gas pattern: Contrast seen throughout the colon.Gas-filled distended bowel loops in the left upper quadrant suggest at least partial obstruction or ileus.Given limitations of supine imaging, no evidence of free air, pneumatosis or portal venous gas. Abnormal calcifications: None Bones: Within normal limits for age Other: None IMPRESSION: Dilated small bowel loops seen in left upper quadrant suggest ileus or partial obstruction. Contrast seen throughout the colon excluding complete obstruction. Interpreted by: Kiko Alba MD Signed by: Kiko Alba MD 07/20/24 Final result Normal [facility] XR Abdomen Single viewon Dilated small bowel loops seen in left upper quadrant suggest ileus or partial obstruction. Contrast seen throughout the colon excluding complete obstruction. [facility] CONSOLIDATED EXAMINATION: ONE SUPINE XRAY VIEW(S) OF THE ABDOMEN 07/20/2024 7:16 am COMPARISON: None. HISTORY: ORDERING SYSTEM PROVIDED HISTORY: abdominal pain TECHNOLOGIST PROVIDED HISTORY: abdominal pain Reason for Exam: port sup FINDINGS: Lines and tubes: None Bowel gas pattern: Contrast seen throughout the colon.Gas-filled distended bowel loops in the left upper quadrant suggest at least partial obstruction or ileus.Given limitations of supine imaging, no evidence of free air, pneumatosis or portal venous gas. Abnormal calcifications: None Bones: Within normal limits for age Other: None [facility] Kiko Alba MD - 07/20/2024 EXAMINATION: ONE SUPINE XRAY VIEW(S) OF THE ABDOMEN 07/20/2024 7:16 am COMPARISON: None. HISTORY: ORDERING SYSTEM PROVIDED HISTORY: abdominal pain TECHNOLOGIST PROVIDED HISTORY: abdominal pain Reason for Exam: port sup FINDINGS: Lines and tubes: None Bowel gas pattern: Contrast seen throughout the colon.Gas-filled distended bowel loops in the left upper quadrant suggest at least partial obstruction or ileus.Given limitations of supine imaging, no evidence of free air, pneumatosis or portal venous gas. Abnormal calcifications: None Bones: Within normal limits for age Other: None IMPRESSION: Dilated small bowel loops seen in left upper quadrant suggest ileus or partial obstruction. Contrast seen throughout the colon excluding complete obstruction. [facility] Radiology Study observation (narrative) [facility] XR Abdomen Single viewOrdere d By: Kiko Alba on 07-20-2024 [facility] Work Phone: C-Reactive Proteinon 025 CRP High sensitivity method [Mass/Vol] 30.2 mg/L High 0.0 - 5.0 mg/L [facility] Interpretation and review of laboratory results Abnormal [facility] CRP [Mass/Vol] 30.2 mg/L High 0.0-5.0 [facility] Comment on above: Performed By: #### C , LACTIC #### [facility] [address] [place] [address] Ripsaw Matcher: Dioni Merlos MD CBC with Auto Differentialon 07-19-2024 Basophils (Bld) [#/Vol] [facility] Basophils/100 WBC (Bld) 0 % 0 - 2 % [facility] Eosinophils (Bld) [#/Vol] [facility] Eosinophils/100 WBC (Bld) 0 % Low 1 - 4 % [facility] Erythrocyte distribution width (RBC) [Ratio] 16.0 % High 11.8 - 14.4 % [facility] Hematocrit (Bld) [Volume fraction] 42.3 % 36.3 - 47.1 % [facility] Hemoglobin (Bld) [Mass/Vol] 14.1 g/dL 11.9 - 15.1 g/dL [facility] Immature granulocytes (Bld) [#/Vol] [facility] Immature granulocytes/100 WBC (Bld) 0 % 0 [facility] Interpretation and review of laboratory results Abnormal [facility] Lymphocytes/100 WBC (Bld) 18 % Low 24 - 43 % [facility] Lymphocytes/100 WBC (Bld) 1.54 % [facility] MCH (RBC) [Entitic mass] 27.8 pg 25.2 - 33.5 pg [facility] MCHC (RBC) [Mass/Vol] 33.3 g/dL 28.4 - 34.8 g/dL [facility] MCV (RBC) [Entitic vol] 83.3 fL 82.6 - 102.9 fL [facility] Monocytes/100 WBC (Bld) 8 % 3 - 12 % [facility] Monocytes/100 WBC (Bld) 0.72 % [facility] Neutrophils/100 WBC (Bld) 74 % High 36 - 65 % [facility] Nucleated RBC/100 WBC (Bld) [Ratio] 0.0 % 0.0 per 100 WBC [facility] Platelet mean volume (Bld) [Entitic vol] 9.7 fL 8.1 - 13.5 fL [facility] Platelets (Bld) [#/Vol] 384 10*3/uL [facility] RBC (Bld) [#/Vol] 5.08 10*6/uL 3.95 - 5.11 m/uL [facility] RBC (Bld) [#/Vol] ANISOCYTOSIS PRESENT [facility] Segmented neutrophils/100 WBC (Bld) 6.44 % [facility] WBC other (Bld) [#/Vol] 8.8 [facility] CBC with Diffon 07-19-2024 Abs. Basophil <0.03 Normal 0.00-0.20 [facility] Comment on above: Performed By: #### C BC, LACTIC #### [facility] [address] [place] [address] Ripsaw Matcher: Dioni Merlos MD Abs. Eosinophil <0.03 Normal 0.00-0.44 [facility] Comment on above: Performed By: #### C BC, LACTIC #### [facility] [address] [place] [address] Ripsaw Matcher: Dioni Merlos MD Abs.Imm.Granulocyte <0.03 Normal 0.00-0.30 [facility] Comment on above: Performed By: #### C BC, LACTIC #### [facility] [address] [place] [address] Ripsaw Matcher: Dioni Merlos MD Abs.Neutrophil (Seg) 6.44 k/uL Normal 1.50-8.10 [facility] Comment on above: Performed By: #### C BC, LACTIC #### [facility] [address] [place] [address] Ripsaw Matcher: Dioni Merlos MD Basophils/100 WBC (Bld) 0 % Normal 0-2 [facility] Comment on above: Performed By: #### C BC, LACTIC #### [facility] [address] [place] [address] Ripsaw Matcher: Dioni Merlos MD Eosinophils/100 WBC (Bld) 0 % Low 1-4 [facility] Comment on above: Performed By: #### C BC, LACTIC #### [facility] [address] [place] [address] Ripsaw Matcher: Dioni Merlos MD Erythrocyte distribution width (RBC) [Ratio] 16.0 % High 11.8-14.4 [facility] Comment on above: Performed By: #### C BC, LACTIC #### [facility] [address] [place] [address] Ripsaw Matcher: Dioni Merlos MD Hematocrit (Bld) [Volume fraction] 42.3 % Normal 36.3-47.1 [facility] Comment on above: Performed By: #### C BC, LACTIC #### [facility] [address] [place] [address] Ripsaw Matcher: Dioni Merlos MD Hemoglobin (Bld) [Mass/Vol] 14.1 g/dL Normal 11.9-15.1 [facility] Comment on above: Performed By: #### C BC, LACTIC #### [facility] [address] [place] [address] Ripsaw Matcher: Dioni Merlos MD Immature granulocytes/100 WBC (Bld) 0 % Normal 0 [facility] Comment on above: Performed By: #### C BC, LACTIC #### [facility] [address] [place] [address] Ripsaw Matcher: Dioni Merlos MD Lymphocytes (Bld) [#/Vol] 1.54 10*3/uL Normal 1.10-3.70 [facility] Comment on above: Performed By: #### C BC, LACTIC #### [facility] [address] [place] [address] Ripsaw Matcher: Dioni Merlos MD Lymphocytes/100 WBC (Bld) 18 % Low 24-43 [facility] Comment on above: Performed By: #### C BC, LACTIC #### [facility] [address] [place] [address] Ripsaw Matcher: Dioni Merlos MD MCH (RBC) [Entitic mass] 27.8 pg Normal 25.2-33.5 [facility] Comment on above: Performed By: #### C BC, LACTIC #### [address] [address] Ripsaw Matcher: Dioni Merlos MD MCHC (RBC) [Mass/Vol] 33.3 g/dL Normal 28.4-34.8 [facility] Comment on above: Performed By: #### C BC, LACTIC #### [address] [address] Ripsaw Matcher: Dioni Merlos MD MCV (RBC) [Entitic vol] 83.3 fL Normal 82.6-102.9 [facility] Comment on above: Performed By: #### C BC, LACTIC #### [address] [address] Ripsaw Matcher: Dioni Merlos MD Monocytes (Bld) [#/Vol] 0.72 10*3/uL Normal 0.10-1.20 [facility] Comment on above: Performed By: #### C BC, LACTIC #### [facility] [address] [place] [address] Ripsaw Matcher: Dioni Merlos MD Monocytes/100 WBC (Bld) 8 % Normal 3-12 [facility] Comment on above: Performed By: #### C BC, LACTIC #### [address] [address] Ripsaw Matcher: Dioni Merlos MD Neutrophil (Seg) 74 % High 36-65 [facility] Comment on above: Performed By: #### C BC, LACTIC #### [address] [address] Ripsaw Matcher: Dioni Merlos MD NRBC Automated 0.0 per 100 WBC Normal 0.0 [facility] Comment on above: Performed By: #### C BC, LACTIC #### [address] [address] Ripsaw Matcher: Dioni Merlos MD Platelet mean volume (Bld) [Entitic vol] 9.7 fL Normal 8.1-13.5 [facility] Comment on above: Performed By: #### C BC, LACTIC #### [address] [address] Ripsaw Matcher: Dioni Merlos MD Platelets (Bld) [#/Vol] 384 10*3/uL Normal 138-453 [facility] Comment on above: Performed By: #### C BC, LACTIC #### [address] [address] Ripsaw Matcher: Dioni Merlos MD RBC (Bld) [#/Vol] 5.08 10*6/uL Normal 3.95-5.11 [facility] Comment on above: Performed By: #### C BC, LACTIC #### [address] [address] Ripsaw Matcher: Dioni Merlos MD RBC morphology finding Nom (Bld) ANISOCYTOSIS PRESENT Normal [facility] Comment on above: Performed By: #### C BC, LACTIC #### [address] [place] [address] Ripsaw Matcher: Dioni Merlos MD WBC (Bld) [#/Vol] 8.8 10*3/uL Normal 3.5-11.3 [facility] Comment on above: Performed By: #### C BC, LACTIC #### [facility] [address] [place], [place] [id number] Ripsaw Matcher: Dioni Merlos MD CMPon 07-19-2024 Albumin [Mass/Vol] 3.7 g/dL 3.5 - 5.2 g/dL [facility] Albumin/Globulin [Mass ratio] 1.1 {ratio} 1.0 - 2.5 [facility] ALP [Catalytic activity/Vol] 94 U/L 35 - 104 U/L [facility] ALT [Catalytic activity/Vol] 9 U/L Low 10 - 35 U/L [facility] Anion gap [Moles/Vol] 13 mmol/L 9 - 16 mmol/L [facility] AST [Catalytic activity/Vol] 19 U/L 10 - 35 U/L [facility] Comment on above: Specimen hemolysis h as exceeded the interference as defined by Luis. Value may be falsely increased. Suggest recollection if clinically indicated. Bilirubin [Mass/Vol] 0.3 mg/dL 0.0 - 1.2 mg/dL [facility] Calcium [Mass/Vol] 9.5 mg/dL 8.6 - 10.4 mg/dL [facility] Chloride [Moles/Vol] 98 mmol/L 98 - 107 mmol/L [facility] CO2 [Moles/Vol] 26 mmol/L 20 - 31 mmol/L [facility] Creatinine [Mass/Vol] 0.5 mg/dL Low 0.6 - 0.9 mg/dL [facility] Est, Glom Filt Rate - PINF [facility] Comment on above: These results are not intended for use in patients <18 years of age. eGFR results are calculated without a race factor using the 2020 CKD-EPI equation. Careful clinical correlation is recommended, particularly when comparing to results calculated using previous equations. The CKD-EPI equation is less accurate in patients with extremes of muscle mass, extra-renal metabolism of creatine, excessive creatine ingestion, or following therapy that affects renal tubular secretion. Glucose [Mass/Vol] 104 mg/dL High 74 - 99 mg/dL [facility] Interpretation and review of laboratory results [facility] Pot[facility] [Moles/Vol] 3.5 mmol/L Low 3.7 - 5.3 mmol/L [facility] Comment on above: Specimen hemolysis h as exceeded the interference as defined by Luis. Value may be falsely increased. Suggest recollection if clinically indicated. Protein [Mass/Vol] 7.1 g/dL 6.6 - 8.7 g/dL [facility] Sodium [Moles/Vol] 137 mmol/L 136 - 145 mmol/L [facility] Urea nitrogen [Mass/Vol] 6 mg/dL 6 - 20 mg/dL [facility] CT ABDOMEN PELVIS W IV CONTR Denise 07-19-2024 CT ABDOMEN PELVIS W IV CONTRAST EXAMINATION: CT OF THE ABDOMEN AND PELVIS WITH CONTRAST 07/19/2024 2:25 pm TECHNIQUE: CT of the abdomen and pelvis was performed with the administration of intravenous contrast. Multiplanar reformatted images are provided for review. Automated exposure control, iterative reconstruction, and/or weight based adjustment of the mA/kV was utilized to reduce the radiation dose to as low as reasonably achievable. COMPARISON: None. HISTORY: ORDERING SYSTEM PROVIDED HISTORY: hx chrons/abscesses/sev ere abdominal pain TECHNOLOGIST PROVIDED HISTORY: hx chrons/abscesses/sev ere abdominal pain Decision Support Exception - unselect if not a suspected or confirmed emergency medical condition->Emergency Medical Condition (MA) FINDINGS: Lower Chest: No infiltrate or effusion. Liver: There is normal hepatic parenchymal enhancement. No focal hepatic mass. Portal and hepatic veins are patent. No intrahepatic biliary ductal dilation. Biliary: Gallbladder is nondistended. No gallstones are evident. No pericholecystic inflammatory change. Spleen: Normal in size. Pancreas: No pancreatic ductal dilation. No discrete pancreatic parenchymal lesion. Adrenal Glands: Normal morphology. Kidneys / Ureters: Kidneys enhance symmetrically. No hydronephrosis. No focal renal mass. No urinary calculi. GI/Bowel: There is pathologically dilated small bowel upstream from a long segment of small bowel mural thickening and extensive perienteric inflammation. There are multiple interloop fluid collections, for example, right mid pelvis image 131/2 measuring 2.5 x 1.6 cm. Left paracentral pelvis on the same image measuring 1.6 x 1.1 cm. Enteric suture line in the right lower quadrant. Moderate volume of unorganized free fluid more anteriorly in the pelvis. Aorta/IVC: Aorta is normal in caliber. No evidence of aneurysm. Unremarkable IVC. Bladder: Nondistended. Bones/Soft Tissues: No acute osseus abnormality is identified. IMPRESSION: Pathologically dilated small bowel upstream from a long segment small bowel stricture with wall thickening and perienteric inflammatory change. Findings consistent with partial obstruction There are several interloop fluid collections as described likely representing abscesses. Moderate volume of free fluid also noted in the pelvis. Interpreted by: Enrike Rodriges MD Signed by: Enrike Rodriges MD 07/19/24 Final result Normal [facility] CT Abdomen and Pelvis W cont rast Bette 07-19-2024 Pathologically dilated small bowel upstream from a long segment small bowel stricture with wall thickening and perienteric inflammatory change. Findings consistent with partial obstruction There are several interloop fluid collections as described likely representing abscesses. Moderate volume of free fluid also noted in the pelvis. [facility] CONSOLIDATED EXAMINATION: CT OF THE ABDOMEN AND PELVIS WITH CONTRAST 07/19/2024 2:25 pm TECHNIQUE: CT of the abdomen and pelvis was performed with the administration of intravenous contrast. Multiplanar reformatted images are provided for review. Automated exposure control, iterative reconstruction, and/or weight based adjustment of the mA/kV was utilized to reduce the radiation dose to as low as reasonably achievable. COMPARISON: None. HISTORY: ORDERING SYSTEM PROVIDED HISTORY: hx chrons/abscesses/sev ere abdominal pain TECHNOLOGIST PROVIDED HISTORY: hx chrons/abscesses/sev ere abdominal pain Decision Support Exception - unselect if not a suspected or confirmed emergency medical condition->Emergency Medical Condition (MA) FINDINGS: Lower Chest: No infiltrate or effusion. Liver: There is normal hepatic parenchymal enhancement. No focal hepatic mass. Portal and hepatic veins are patent. No intrahepatic biliary ductal dilation. Biliary: Gallbladder is nondistended. No gallstones are evident. No pericholecystic inflammatory change. Spleen: Normal in size. Pancreas: No pancreatic ductal dilation. No discrete pancreatic parenchymal lesion. Adrenal Glands: Normal morphology. Kidneys / Ureters: Kidneys enhance symmetrically. No hydronephrosis. No focal renal mass. No urinary calculi. GI/Bowel: There is pathologically dilated small bowel upstream from a long segment of small bowel mural thickening and extensive perienteric inflammation. There are multiple interloop fluid collections, for example, right mid pelvis image 131/2 measuring 2.5 x 1.6 cm. Left paracentral pelvis on the same image measuring 1.6 x 1.1 cm. Enteric suture line in the right lower quadrant. Moderate volume of unorganized free fluid more anteriorly in the pelvis. Aorta/IVC: Aorta is normal in caliber. No evidence of aneurysm. Unremarkable IVC. Bladder: Nondistended. Bones/Soft Tissues: No acute osseus abnormality is identified. [facility] CONSOL[facility] UgasEnrike MD - 07/19/2024 EXAMINATION: CT OF THE ABDOMEN AND PELVIS WITH CONTRAST 07/19/2024 2:25 pm TECHNIQUE: CT of the abdomen and pelvis was performed with the administration of intravenous contrast. Multiplanar reformatted images are provided for review. Automated exposure control, iterative reconstruction, and/or weight based adjustment of the mA/kV was utilized to reduce the radiation dose to as low as reasonably achievable. COMPARISON: None. HISTORY: ORDERING SYSTEM PROVIDED HISTORY: hx chrons/abscesses/sev ere abdominal pain TECHNOLOGIST PROVIDED HISTORY: hx chrons/abscesses/sev ere abdominal pain Decision Support Exception - unselect if not a suspected or confirmed emergency medical condition->Emergency Medical Condition (MA) FINDINGS: Lower Chest: No infiltrate or effusion. Liver: There is normal hepatic parenchymal enhancement. No focal hepatic mass. Portal and hepatic veins are patent. No intrahepatic biliary ductal dilation. Biliary: Gallbladder is nondistended. No gallstones are evident. No pericholecystic inflammatory change. Spleen: Normal in size. Pancreas: No pancreatic ductal dilation. No discrete pancreatic parenchymal lesion. Adrenal Glands: Normal morphology. Kidneys / Ureters: Kidneys enhance symmetrically. No hydronephrosis. No focal renal mass. No urinary calculi. GI/Bowel: There is pathologically dilated small bowel upstream from a long segment of small bowel mural thickening and extensive perienteric inflammation. There are multiple interloop fluid collections, for example, right mid pelvis image 131/2 measuring 2.5 x 1.6 cm. Left paracentral pelvis on the same image measuring 1.6 x 1.1 cm. Enteric suture line in the right lower quadrant. Moderate volume of unorganized free fluid more anteriorly in the pelvis. Aorta/IVC: Aorta is normal in caliber. No evidence of aneurysm. Unremarkable IVC. Bladder: Nondistended. Bones/Soft Tissues: No acute osseus abnormality is identified. IMPRESSION: Pathologically dilated small bowel upstream from a long segment small bowel stricture with wall thickening and perienteric inflammatory change. Findings consistent with partial obstruction There are several interloop fluid collections as described likely representing abscesses. Moderate volume of free fluid also noted in the pelvis. [facility] Radiology Study observation (narrative) [facility] CT Abdomen and Pelvis W cont rast IVOrdered By: Enrike Rodriges on 07-19-2024 [facility] Work Phone: Comp Metabolic Profon 2024 Albumin [Mass/Vol] 3.7 g/dL Normal 3.5-5.2 [facility] Comment on above: Performed By: #### C BC, LACTIC #### [facility] [address] [place] [address] Ripsaw Matcher: Dioni Merlos MD Albumin/Glob Ratio 1.1 Normal 1.0-2.5 [facility] Comment on above: Performed By: #### C BC, LACTIC #### [facility] [place] [address] Ripsaw Matcher: Dioni Merlos MD Alkaline Phos 94 U/L Normal 35-104 [facility] Comment on above: Performed By: #### C BC, LACTIC #### [facility] [address] [place] [address] Ripsaw Matcher: Dioni Merlos MD ALT [Catalytic activity/Vol] 9 U/L Low 10-35 [facility] Comment on above: Performed By: #### C BC, LACTIC #### [facility] [place] [address] Ripsaw Matcher: Dioni Merlos MD Anion gap [Moles/Vol] 13 mmol/L Normal 9-16 [facility] Comment on above: Performed By: #### C BC, LACTIC #### [facility] [address] [place] [address] Ripsaw Matcher: Dioni Merlos MD AST [Catalytic activity/Vol] 19 U/L Normal 10-35 [facility] Comment on above: Result Comment: Spec imen hemolysis has exceeded the interference as defined by Luis. Value may be falsely increased. Suggest recollection if clinically indicated. Performed By: #### C BC, LACTIC #### [facility] [address] [place] [address] Ripsaw Matcher: Dioni Merlos MD Bilirubin [Mass/Vol] 0.3 mg/dL Normal 0.0-1.2 [facility] Comment on above: Performed By: #### C BC, LACTIC #### [facility] [address] [place] [address] Ripsaw Matcher: Dioni Merlos MD Calcium [Mass/Vol] 9.5 mg/dL Normal 8.6-10.4 [facility] Comment on above: Performed By: #### C BC, LACTIC #### [facility] [address] [place] [address] Ripsaw Matcher: Dioni Merlos MD Chloride [Moles/Vol] 98 mmol/L Normal 98-107 [facility] Comment on above: Performed By: #### C BC, LACTIC #### [facility] [address] [place] [address] Ripsaw Matcher: Dioni Merlos MD CO2 [Moles/Vol] 26 mmol/L Normal 20-31 [facility] Comment on above: Performed By: #### C BC, LACTIC #### [facility] [address] [place] [address] Ripsaw Matcher: Dioni Merlos MD Creatinine [Mass/Vol] 0.5 mg/dL Low 0.6-0.9 [facility] Comment on above: Performed By: #### C BC, LACTIC #### [facility] [address] [place] [address] [id number] Ripsaw Matcher: Dioni Merlos MD GFR/1.73 sq M.predicted among non-blacks MDRD (S/P/Bld) [Vol rate/Area] mL/min/{1.73_m2} Normal >60 [facility] Comment on above: Result Comment: These results are not intended for use in patients <18 years of age. eGFR results are calculated without a race factor using the 2020 CKD-EPI equation. Careful clinical correlation is recommended, particularly when comparing to results calculated using previous equations. The CKD-EPI equation is less accurate in patients with extremes of muscle mass, extra-renal metabolism of creatine, excessive creatine ingestion, or following therapy that affects renal tubular secretion. Performed By: #### C BC, LACTIC #### [facility] [address] [place] [address] Ripsaw Matcher: Dioni Merlos MD Glucose [Mass/Vol] 104 mg/dL High 74-99 [facility] Comment on above: Performed By: #### C BC, LACTIC #### [facility] [address] [place] [address] [id number] Ripsaw Matcher: Dioni Merlos MD Potassium [Moles/Vol] 3.5 mmol/L Low 3.7-5.3 [facility] Comment on above: Result Comment: Spec imen hemolysis has exceeded the interference as defined by Luis. Value may be falsely increased. Suggest recollection if clinically indicated. Performed By: #### C BC, LACTIC #### [facility] [address] [place] [address] [id number] Ripsaw Matcher: Dioni Merlos MD Protein [Mass/Vol] 7.1 g/dL Normal 6.6-8.7 [facility] Comment on above: Performed By: #### C BC, LACTIC #### [facility] [address] [place] [address] [id number] Ripsaw Matcher: Dioni Merlos MD Sodium [Moles/Vol] 137 mmol/L Normal 136-145 [facility] Comment on above: Performed By: #### C BC, LACTIC #### [facility] [address] [place], [place] [id number] Ripsaw Matcher: Dioni Merlos MD Urea nitrogen [Mass/Vol] 6 mg/dL Normal 6-20 [facility] Comment on above: Performed By: #### C BC, LACTIC #### [facility] [address] [place], [place] [phone] Ripsaw Matcher: Dioni Merlos MD HCG Qualitative, Serumon HCG ( test) Ql Negative NEGATIVE [facility] Comment on above: Specimens with hCG l evels near the threshold of the test (25 mIU/mL) may give a negative or indeterminate result. In such cases, another test should be performed with a new specimen in 48-72 hours. If early is suspected clinically in this setting, correlation with quantitative serum b-hCG level is suggested. [facility] has confirmed the use of plasma for this test. This has not been cleared or approved by the U.S. Food and Drug Administration. The FDA has determined that such clearance is not necessary. [facility] HCG Screen, Bloodon 07-19-19 25 HCG Screen, Blood Negative Normal NEG [facility] Comment on above: Result Comment: Spec imens with hCG levels near the threshold of the test (25 mIU/mL) may give a negative or indeterminate result. In such cases, another test should be performed with a new specimen in 48-72 hours. If early is suspected clinically in this setting, correlation with quantitative serum b-hCG level is suggested. [facility] has confirmed the use of plasma for this test. This has not been cleared or approved by the U.S. Food and Drug Administration. The FDA has determined that such clearance is not necessary. Performed By: #### C BC, LACTIC #### [facility] [address] [place], [place] [phone] Ripsaw Matcher: Dioni Merlos MD Lactic Acidon 07-19-2024 Lactic Acid, Whole Blood 1.0 mmol/L 0.7 - 2.1 mmol/L [facility] Lactic Acid,Whole Bl 1.0 mmol/L Normal 0.7-2.1 [facility] Comment on above: Performed By: #### C RP, HCG, LIP, TROPI, CDP, CP #### [facility] [address] [place], [place] [id number] Ripsaw Matcher: Dioni Merlos MD Lipaseon 07-19-2024 Lipase [Catalytic activity/Vol] 17 U/L 13 - 60 U/L [facility] Lipase [Catalytic activity/Vol] 17 U/L Normal 13-60 [facility] Comment on above: Performed By: #### C BC, LACTIC #### [facility] [address] [place], [place] [phone] Ripsaw Matcher: Dioni Merlos MD Microscopic Urinalysison Bacteria LM Ql (Urine sed) None None [facility] GOBA Casts LM.LPF (Urine sed) [#/Area] 10 TO 20 HYALINE Reference range defined for non-centrifuged specimen. [facility] Epithelial cells LM.HPF (Urine sed) [#/Area] 10 TO 20 [facility] Mucus Ql (Urine sed) 1+ [facility] RBC LM.HPF (Urine sed) [#/Area] 5 TO 10 [facility] Comment on above: Reference range defi german for non-centrifuged specimen. WBC LM.HPF (Urine sed) [#/Area] 5 TO 10 [facility] No Panel Informationon 07-19 [facility] Sedimentation Rateon 025 ESR Photometric method (Bld) [Velocity] 15 [facility] Sedimentation Rate 15 mm/Hr Normal 0-20 [facility] Comment on above: Performed By: #### C BC, LACTIC #### [facility] [address] [place], [place] [id number] Ripsaw Matcher: Dioni Merlos MD Stool PCR Batteryon 07-19-19 Specimen Description .FECES Normal [facility] Comment on above: Performed By: #### C RP #### [address] [address] Ripsaw Matcher: Dioni Merlos MD UA w/Reflex Cultureon 2024 Bilirubin, SemiQt,Ur Negative Normal NEG [facility] Comment on above: Performed By: #### C RP, HCG, LIP, TROPI, CDP, CP #### [facility] [address] [place] [address] Ripsaw Matcher: Dioni Merlos MD Blood, Urine TRACE Abnormal NEG [facility] Comment on above: Performed By: #### C RP, HCG, LIP, TROPI, CDP, CP #### [address] [address] Ripsaw Matcher: Dioni Merlos MD Clarity (U) Cloudy Abnormal CLEAR [facility] Comment on above: Performed By: #### C RP, HCG, LIP, TROPI, CDP, CP #### [facility] [address] [place] [address] Ripsaw Matcher: Dioni Merlos MD Color (U) Yellow Normal YEL [facility] Comment on above: Performed By: #### C RP, HCG, LIP, TROPI, CDP, CP #### [facility] [address] [place] [address] Ripsaw Matcher: Dioni Merlos MD Glucose Ql (U) Negative Normal NEG [facility] Comment on above: Performed By: #### C RP, HCG, LIP, TROPI, CDP, CP #### [facility] [address] [place] [address] Ripsaw Matcher: Dioni Merlos MD Ketones Ql (U) MODERATE Abnormal NEG [facility] Comment on above: Performed By: #### C RP, HCG, LIP, TROPI, CDP, CP #### [address] [address] Ripsaw Matcher: Dioni Merlos MD Leukocyte esterase Test strip Ql (U) Negative Normal NEG [facility] Comment on above: Performed By: #### C RP, HCG, LIP, TROPI, CDP, CP #### [address] [address] Ripsaw Matcher: Dioni Merlos MD Nitrite,Ur Negative Normal NEG [facility] Comment on above: Performed By: #### C RP, HCG, LIP, TROPI, CDP, CP #### [address] [address] Ripsaw Matcher: Dioni Merlos MD PH,Ur 6.5 Normal 5.0-8.0 [facility] Comment on above: Performed By: #### C RP, HCG, LIP, TROPI, CDP, CP #### [address] [address] Ripsaw Matcher: Dioni Merlos MD Protein Ql (U) TRACE Abnormal NEG [facility] Comment on above: Performed By: #### C RP, HCG, LIP, TROPI, CDP, CP #### [address] [address] Ripsaw Matcher: Dioni Merlos MD Spec. [place],Ur 1.016 Normal 1.005-1.030 [facility] Comment on above: Performed By: #### C RP, HCG, LIP, TROPI, CDP, CP #### [address] [address] Ripsaw Matcher: Dioni Merlos MD Urobilinogen,Ur Normal Normal 0.0-1.0 [facility] Comment on above: Performed By: #### C RP, HCG, LIP, TROPI, CDP, CP #### [address], [place] [phone] Ripsaw Matcher: Dioni Merlos MD Urinalysis with Reflex to Cu ltureon 07-19-2024 Bilirubin Ql (U) Negative [facility]GATIVE [facility] Clarity (U) Cloudy Abnormal Clear [facility] Color (U) Yellow Yellow [facility] Glucose Test strip (U) [Mass/Vol] Negative NEGATIVE mg/dL [facility] Hemoglobin Auto test strip Ql (U) TRACE Abnormal NEGATIVE [facility] Interpretation and review of laboratory results Abnormal [facility] Ketones (U) [Mass/Vol] MODERATE Abnormal NEGATIVE mg/dL [facility] Leukocyte esterase Test strip Ql (U) Negative NEGATIVE [facility] Nitrite Ql (U) Negative NEGATIVE [facility] pH (U) 6.5 [pH] 5.0 - 8.0 [facility] Protein (U) [Mass/Vol] TRACE Abnormal NEGATIVE mg/dL [facility] Specific gravity (U) [Rel density] 1.016 1.005 - 1.030 [facility] Urobilinogen Qn (U) Normal 0.0 - 1.0 EU/dL [facility] Urinalysis,Microon 5 Bacteria None Normal NONE [facility] Comment on above: Performed By: #### C RP, HCG, LIP, TROPI, CDP, CP #### [facility] [address] [place] [address] Ripsaw Matcher: Dioni Merlos MD Casts 10 TO 20 HYALINE Normal 0-8 [facility] Comment on above: Result Comment: Refe rence range defined for non-centrifuged specimen. Performed By: #### C RP, HCG, LIP, TROPI, CDP, CP #### [facility] [address] [place] [phone] Ripsaw Matcher: Dioni Merlos MD Epithelial cells LM Ql (Urine sed) 10 TO 20 Normal 0-5 [facility] Comment on above: Performed By: #### C RP, HCG, LIP, TROPI, CDP, CP #### [id number] [place] [address] Ripsaw Matcher: Dioni Merlos MD Mucus Strands 1+ Normal [facility] Comment on above: Performed By: #### C RP, HCG, LIP, TROPI, CDP, CP #### [address] [address] Ripsaw Matcher: Dioni Merlos MD Urine RBC's 5 TO 10 Normal 0-4 [facility] Comment on above: Result Comment: Refe rence range defined for non-centrifuged specimen. Performed By: #### C RP, HCG, LIP, TROPI, CDP, CP #### [address] [address] Ripsaw Matcher: Dioni Merlos MD Urine WBC's 5 TO 10 Normal 0-5 [facility] Comment on above: Performed By: #### C RP, HCG, LIP, TROPI, CDP, CP #### [address] [address] Ripsaw Matcher: Dioni Merlos MD HCG,,Ur-POCon 06-05 HCG,,Ur-POC Negative Normal NEG [facility] Comment on above: Result Comment: HCG screen is sensitive to 25 mIU/mL. 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 If further evaluation is needed please request quantitative HCG. Performed By: #### U HCGE #### [facility] [address] [place] [address] Ripsaw Matcher: Wallace Napoles, POCT HCG, Prenancy, Uron Beta HCG ( test) Ql (U) Negative NEGATIVE [facility] Comment on above: HCG screen is sensitive to 25 mIU/mL. 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 If further evaluation is needed please request quantitative HCG. [facility] Stool PCR Batteryon 05-10-20 24 Campylobacter sp PCR NEGATIVE: No Campylobacter spp. (jejuni or coli) DNA Detected Normal CAMNEG [facility] Comment on above: Performed By: #### C BC, LACTIC #### [facility] [address] [place] [address] Ripsaw Matcher: Dioni Merlos MD E coli enterotox PCR NEGATIVE: No Enterotoxigenic E. coli (ETEC) Heat-labile and heat-stable (LT/ST) Normal EECNEG [facility] Comment on above: Result Comment: DNA Detected Performed By: #### C BC, LACTIC #### [facility] [address] [place] [address] Ripsaw Matcher: Dioni Merlos MD [facility]iomonas sp [facility] on above: Performed By: #### C BC, LACTIC #### [facility] [address] [place] [address] Ripsaw Matcher: Dioni Merlos MD Salmonella sp PCR Negative Normal SALNEG [facility] Comment on above: Performed By: #### C BC, LACTIC #### [facility] [address] [place] [address] Ripsaw Matcher: Dioni Merlos MD Shigatoxin gene PCR Negative Normal STXNEG [facility] Comment on above: Performed By: #### C BC, LACTIC #### [facility] [address] [place] [address] Ripsaw Matcher: Dioni Merlos MD Shigella sp PCR Negative Normal SHINEG [facility] Comment on above: Performed By: #### C BC, LACTIC #### [facility] [address] [place] [address] Ripsaw Matcher: Dioni Merlos MD Vibrio sp PCR NEGATIVE: No Vibrio (V. vulnificus, V, parahaemolyticus and V. cholerae) DNA Normal VIBNEG [facility] Comment on above: Result Comment: Dete cted Performed By: #### C BC, LACTIC #### [facility] [address] [place], [place] [phone] Ripsaw Matcher: Dioni Merlos MD Yersinia gene PCR Negative Normal YERNEG [facility] Comment on above: Performed By: #### C BC, LACTIC #### [facility] [address] [place], [place] [phone] Ripsaw Matcher: Dioni Merlos MD Calprotectin Stoolon 024 Calprotectin, Fecal 2850 ug/g High NINF - 49 ug/g B on [facility] Comment on above: (NOTE) REFERENCE INTERVAL: Calprotectin, Fecal by Immunoassay Less than 50 ug/g.........Normal 50-120 ug/g...............Borderline elevated, test should be re-evaluated in 4-6 weeks. 121 ug/g or greater.......Elevated Performed By: [facility] [address] [place] [address] Schedule Checker: Hugo Ramsey MD, PhD CLIA Number: [id number] Interpretation and review of laboratory results Abnormal [facility] Calprotectin, Fecalon 2023 Calprotectin, Fecal 2850 ug/g High <=49 [facility] Comment on above: Result Comment: (NOT E) REFERENCE INTERVAL: Calprotectin, Fecal by Immunoassay Less than 50 ug/g.........Normal 50-120 ug/g...............Borderline elevated, test should be re-evaluated in 4-6 weeks. 121 ug/g or greater.......Elevated Performed By: [facility] [address] [place] [address] Schedule Checker: Hugo Ramsey MD, PhD CLIA Number: [id number] Performed By: #### C RP, HCG, LIP, TROPI, CDP, CP #### [facility] [address] [place], [place] [phone] Ripsaw Matcher: Dioni Merlos MD B12/Folate Panelon Cobalamin (Vitamin B12) [Mass/Vol] 176 pg/mL Low 232-1245 [facility] Comment on above: Performed By: #### L ACTIC #### [facility] [address] [place], [place] [phone] Ripsaw Matcher: Dioni Merlos MD Folic Acid 17.7 ng/mL Normal 4.8-24.2 [facility] Comment on above: Performed By: #### L ACTIC #### [facility] [address] [place], [place] [phone] Ripsaw Matcher: Dioni Merlos MD C DIFF TOXIN/ANTIGENon 05-08 C. difficile glutamate dehydrogenase and toxins A+B IA.rapid Ql (Stl) Negative NEGATIVE [facility] Comment on above: No C. difficile anti gen and Toxin Detected. Specimen Description .FECES [facility] C diff Ag + Toxinon 05-08-20 C diff Ag + Toxin Negative Normal NEG [facility] Comment on above: Result Comment: No C . difficile antigen and Toxin Detected. Performed By: #### L ACTIC #### [facility] [address] [place], [place] [id number] Ripsaw Matcher: Dioni Merlos MD CBC with Auto Differentialon 05-08-2024 Basophils (Bld) [#/Vol] 0.03 10*3/uL [facility] Basophils/100 WBC (Bld) 0 % 0 - 2 % [facility] Eosinophils (Bld) [#/Vol] 0.14 10*3/uL [facility] Eosinophils/100 WBC (Bld) 2 % 1 - 4 % [facility] Erythrocyte distribution width (RBC) [Ratio] 14.3 % 11.8 - 14.4 % [facility] Hematocrit (Bld) [Volume fraction] 29.4 % Low 36.3 - 47.1 % [facility] Hemoglobin (Bld) [Mass/Vol] 8.7 g/dL Low 11.9 - 15.1 g/dL [facility] Immature granulocytes (Bld) [#/Vol] 0.04 10*3/uL [facility] Immature granulocytes/100 WBC (Bld) 1 % High 0 [facility] Interpretation and review of laboratory results Abnormal [facility] Lymphocytes/100 WBC (Bld) 15 % Low 24 - 43 % [facility] Lymphocytes/100 WBC (Bld) 1.13 % [facility] MCH (RBC) [Entitic mass] 26.3 pg 25.2 - 33.5 pg [facility] MCHC (RBC) [Mass/Vol] 29.6 g/dL 28.4 - 34.8 g/dL [facility] MCV (RBC) [Entitic vol] 88.8 fL 82.6 - 102.9 fL [facility] Monocytes/100 WBC (Bld) 6 % 3 - 12 % [facility] Monocytes/100 WBC (Bld) 0.49 % [facility] Neutrophils/100 WBC (Bld) 76 % High 36 - 65 % [facility] Nucleated RBC/100 WBC (Bld) [Ratio] 0.0 % 0.0 per 100 WBC [facility] Platelet mean volume (Bld) [Entitic vol] 9.7 fL 8.1 - 13.5 fL [facility] Platelets (Bld) [#/Vol] 337 10*3/uL [facility] RBC (Bld) [#/Vol] 3.31 10*6/uL Low 3.95 - 5.11 m/uL [facility] Segmented neutrophils/100 WBC (Bld) 5.81 % [facility] WBC other (Bld) [#/Vol] 7.6 [facility] CBC with Diffon 05-08-2024 Abs. Basophil 0.03 k/uL Normal 0.00-0.20 [facility] Comment on above: Performed By: #### L ACTIC #### [facility] [place] [id number] Ripsaw Matcher: Dioni Merlos MD Abs.Imm.Granulocyte 0.04 k/uL Normal 0.00-0.30 [facility] Comment on above: Performed By: #### L ACTIC #### [address] [address] Ripsaw Matcher: Dioni Merlos MD Abs.Neutrophil (Seg) 5.81 k/uL Normal 1.50-8.10 [facility] Comment on above: Performed By: #### L ACTIC #### [place] [address] Ripsaw Matcher: Dioni Merlos MD Basophils/100 WBC (Bld) 0 % Normal 0-2 [facility] Comment on above: Performed By: #### L ACTIC #### [place] [address] Ripsaw Matcher: Dioni Merlos MD Eosinophils (Bld) [#/Vol] 0.14 10*3/uL Normal 0.00-0.44 [facility] Comment on above: Performed By: #### L ACTIC #### [place] [address] Ripsaw Matcher: Dioni Merlos MD Eosinophils/100 WBC (Bld) 2 % Normal 1-4 [facility] Comment on above: Performed By: #### L ACTIC #### [place] [address] Ripsaw Matcher: Dioni Merlos MD Erythrocyte distribution width (RBC) [Ratio] 14.3 % Normal 11.8-14.4 [facility] Comment on above: Performed By: #### L ACTIC #### [place] [address] Ripsaw Matcher: Dioni Merlos MD Hematocrit (Bld) [Volume fraction] 29.4 % Low 36.3-47.1 [facility] Comment on above: Performed By: #### L ACTIC #### [address] [address] Ripsaw Matcher: Dioni Merlos MD Hemoglobin (Bld) [Mass/Vol] 8.7 g/dL Low 11.9-15.1 [facility] Comment on above: Performed By: #### L ACTIC #### [address] [address] Ripsaw Matcher: Dioni Merlos MD Immature granulocytes/100 WBC (Bld) 1 % High 0 [facility] Comment on above: Performed By: #### L ACTIC #### [address] [address] Ripsaw Matcher: Dioni Merlos MD Lymphocytes (Bld) [#/Vol] 1.13 10*3/uL Normal 1.10-3.70 [facility] Comment on above: Performed By: #### L ACTIC #### [address] [address] Ripsaw Matcher: Dioni Merlos MD Lymphocytes/100 WBC (Bld) 15 % Low 24-43 [facility] Comment on above: Performed By: #### L ACTIC #### [address] [address] Ripsaw Matcher: Dioni Merlos MD MCH (RBC) [Entitic mass] 26.3 pg Normal 25.2-33.5 [facility] Comment on above: Performed By: #### L ACTIC #### [address] [address] Ripsaw Matcher: Dioni Merlos MD MCHC (RBC) [Mass/Vol] 29.6 g/dL Normal 28.4-34.8 [facility] Comment on above: Performed By: #### L ACTIC #### [address] [address] Ripsaw Matcher: Dioni Merlos MD MCV (RBC) [Entitic vol] 88.8 fL Normal 82.6-102.9 [facility] Comment on above: Performed By: #### L ACTIC #### [address] [address] Ripsaw Matcher: Dioni Merlos MD Monocytes (Bld) [#/Vol] 0.49 10*3/uL Normal 0.10-1.20 [facility] Comment on above: Performed By: #### L ACTIC #### [address] [address] Ripsaw Matcher: Dioni Merlos MD Monocytes/100 WBC (Bld) 6 % Normal 3-12 [facility] Comment on above: Performed By: #### L ACTIC #### [place] [address] Ripsaw Matcher: Dioni Merlos MD Neutrophil (Seg) 76 % High 36-65 [facility] Comment on above: Performed By: #### L ACTIC #### [address] [address] Ripsaw Matcher: Dioni Merlos MD NRBC Automated 0.0 per 100 WBC Normal 0.0 [facility] Comment on above: Performed By: #### L ACTIC #### [address] [address] Ripsaw Matcher: Dioni Merlos MD Platelet mean volume (Bld) [Entitic vol] 9.7 fL Normal 8.1-13.5 [facility] Comment on above: Performed By: #### L ACTIC #### [address] [address] Ripsaw Matcher: Dioni Merlos MD Platelets (Bld) [#/Vol] 337 10*3/uL Normal 138-453 [facility] Comment on above: Performed By: #### L ACTIC #### [facility] [address] [place] [address] Ripsaw Matcher: Dioni Merlos MD RBC (Bld) [#/Vol] 3.31 10*6/uL Low 3.95-5.11 [facility] Comment on above: Performed By: #### L ACTIC #### [facility] [address] [place] [address] Ripsaw Matcher: Dioni Merlos MD WBC (Bld) [#/Vol] 7.6 10*3/uL Normal 3.5-11.3 [facility] Comment on above: Performed By: #### L ACTIC #### [facility] [address] [place] [address] Ripsaw Matcher: Dioni Merlos MD Ferritinon 05-08-2024 Ferritin [Mass/Vol] 163 ng/mL High 15 - 150 ng/mL B on [facility] Comment on above: FERRITIN Reference Ranges: Adult Males 20 - 60 years: 30 - 400 ng/mL Adult females 17 - 60 years: 13 - 150 ng/mL Adults greater than 60 years: no established reference range Pediatrics: no established reference range Ferritin [Mass/Vol] 163 ng/mL High 15-150 [facility] Comment on above: Result Comment: FERRITIN Reference Ranges: Adult Males 20 - 60 years: 30 - 400 ng/mL Adult females 17 - 60 years: 13 - 150 ng/mL Adults greater than 60 years: no established reference range Pediatrics: no established reference range Performed By: #### L ACTIC #### [facility] [address] [place] [address] Ripsaw Matcher: Dioni Merlos MD Iron Binding Cap.on 05-08-20 24 % Fe Saturation 12 % Low 20-55 [facility] Comment on above: Performed By: #### L ACTIC #### [facility] [address] [place] [address] [id number] Ripsaw Matcher: Dioni Merlos MD Iron [Mass/Vol] 21 ug/dL Low 37-145 [facility] Comment on above: Performed By: #### L ACTIC #### [facility] [address] [place] [address] Ripsaw Matcher: Dioni Merlos MD Total Fe Binding Cap 179 ug/dL Low 250-450 [facility] Comment on above: Performed By: #### L ACTIC #### [facility] [address] [place], [place] [id number] Ripsaw Matcher: Dioni Merlos MD Unbound Fe Bind Cap 158 ug/dL Normal 112-347 [facility] Comment on above: Performed By: #### L ACTIC #### [facility] [address] [place], [place] [id number] Ripsaw Matcher: Dioni Merlos MD Iron and TIBCon 05-08-2024 Iron [Mass/Vol] 21 ug/dL Low 37 - 145 ug/dL [facility] Iron binding capacity [Mass/Vol] 179 ug/dL Low 250 - 450 ug/dL [facility] Iron saturation [Mass fraction] 12 % Low 20 - 55 % [facility] UIBC 158 ug/dL 112 - 347 ug/dL [facility] No Panel Informationon 05-08 Interpretation and review of laboratory results Abnormal [facility] Vitamin B12 & Folateon 05-08 Cobalamin (Vitamin B12) [Mass/Vol] 176 pg/mL Low 232 - 1245 pg/mL [facility] Folate [Mass/Vol] 17.7 ng/mL 4.8 - 24.2 ng/mL B on [facility] Interpretation and review of laboratory results Abnormal [facility] Blood Occult Stool Diagnosti con 05-07-2024 Date, Stool #1 [id number] [facility] Hemoglobin.gastroint estinal spec 1 Ql (Stl) Negative NEGATIVE [facility] Time, Stool #1 UNKNOWN [facility] C diff Ag + Toxinon 11-03-20 24 Specimen Description .FECES Normal [facility] Comment on above: Performed By: #### L ACTIC #### [facility] [address] [place] [id number] Ripsaw Matcher: Dioni Merlos MD CBC with Auto Differentialon 05-07-2024 Basophils (Bld) [#/Vol] 0.03 10*3/uL [facility] Basophils/100 WBC (Bld) 0 % 0 - 2 % [facility] Eosinophils (Bld) [#/Vol] 0.08 10*3/uL [facility] Eosinophils/100 WBC (Bld) 1 % 1 - 4 % [facility] Erythrocyte distribution width (RBC) [Ratio] 14.1 % 11.8 - 14.4 % [facility] Hematocrit (Bld) [Volume fraction] 34.7 % Low 36.3 - 47.1 % [facility] Hemoglobin (Bld) [Mass/Vol] 10.4 g/dL Low 11.9 - 15.1 g/dL [facility] Immature granulocytes (Bld) [#/Vol] 0.07 10*3/uL [facility] Immature granulocytes/100 WBC (Bld) 1 % High 0 [facility] Interpretation and review of laboratory results Abnormal [facility] Lymphocytes/100 WBC (Bld) 12 % Low 24 - 43 % [facility] Lymphocytes/100 WBC (Bld) 1.04 % Low [facility] MCH (RBC) [Entitic mass] 26.9 pg 25.2 - 33.5 pg [facility] MCHC (RBC) [Mass/Vol] 30.0 g/dL 28.4 - 34.8 g/dL [facility] MCV (RBC) [Entitic vol] 89.9 fL 82.6 - 102.9 fL [facility] Monocytes/100 WBC (Bld) 5 % 3 - 12 % [facility] Monocytes/100 WBC (Bld) 0.38 % [facility] Neutrophils/100 WBC (Bld) 81 % High 36 - 65 % [facility] Nucleated RBC/100 WBC (Bld) [Ratio] 0.0 % 0.0 per 100 WBC [facility] Platelet mean volume (Bld) [Entitic vol] 9.5 fL 8.1 - 13.5 fL [facility] Platelets (Bld) [#/Vol] 409 10*3/uL [facility] RBC (Bld) [#/Vol] 3.86 10*6/uL Low 3.95 - 5.11 m/uL [facility] Segmented neutrophils/100 WBC (Bld) 6.83 % [facility] WBC other (Bld) [#/Vol] 8.4 [facility] CBC with Diffon 05-07-2024 Abs. Basophil 0.03 k/uL Normal 0.00-0.20 [facility] Comment on above: Performed By: #### L ACTIC #### [place] [address] Ripsaw Matcher: Dioni Merlos MD Abs.Imm.Granulocyte 0.07 k/uL Normal 0.00-0.30 [facility] Comment on above: Performed By: #### L ACTIC #### [place] [address] Ripsaw Matcher: Dioni Merlos MD Abs.Neutrophil (Seg) 6.83 k/uL Normal 1.50-8.10 [facility] Comment on above: Performed By: #### L ACTIC #### [place] [address] Ripsaw Matcher: Dioni Merlos MD Basophils/100 WBC (Bld) 0 % Normal 0-2 [facility] Comment on above: Performed By: #### L ACTIC #### [place] [address] Ripsaw Matcher: Dioni Merlos MD Eosinophils (Bld) [#/Vol] 0.08 10*3/uL Normal 0.00-0.44 [facility] Comment on above: Performed By: #### L ACTIC #### [address] [address] Ripsaw Matcher: Dioni Merlos MD Eosinophils/100 WBC (Bld) 1 % Normal 1-4 [facility] Comment on above: Performed By: #### L ACTIC #### [address] [address] Ripsaw Matcher: Dioni Merlos MD Erythrocyte distribution width (RBC) [Ratio] 14.1 % Normal 11.8-14.4 [facility] Comment on above: Performed By: #### L ACTIC #### [address] [address] Ripsaw Matcher: Dioni Merlos MD Hematocrit (Bld) [Volume fraction] 34.7 % Low 36.3-47.1 [facility] Comment on above: Performed By: #### L ACTIC #### [address] [address] Ripsaw Matcher: Dioni Merlos MD Hemoglobin (Bld) [Mass/Vol] 10.4 g/dL Low 11.9-15.1 [facility] Comment on above: Performed By: #### L ACTIC #### [address] [address] Ripsaw Matcher: Dioni Merlos MD Immature granulocytes/100 WBC (Bld) 1 % High 0 [facility] Comment on above: Performed By: #### L ACTIC #### [address] [address] Ripsaw Matcher: Dioni Merlos MD Lymphocytes (Bld) [#/Vol] 1.04 10*3/uL Low 1.10-3.70 [facility] Comment on above: Performed By: #### L ACTIC #### [facility] [address] [place] [address] Ripsaw Matcher: Dioni Merlos MD Lymphocytes/100 WBC (Bld) 12 % Low 24-43 [facility] Comment on above: Performed By: #### L ACTIC #### [address] [address] Ripsaw Matcher: Dioni Merlos MD MCH (RBC) [Entitic mass] 26.9 pg Normal 25.2-33.5 [facility] Comment on above: Performed By: #### L ACTIC #### [address] [address] Ripsaw Matcher: Dioni Merlos MD MCHC (RBC) [Mass/Vol] 30.0 g/dL Normal 28.4-34.8 [facility] Comment on above: Performed By: #### L ACTIC #### [address] [address] Ripsaw Matcher: Dioni Merlos MD MCV (RBC) [Entitic vol] 89.9 fL Normal 82.6-102.9 [facility] Comment on above: Performed By: #### L ACTIC #### [address] [address] Ripsaw Matcher: Dioni Merlos MD Monocytes (Bld) [#/Vol] 0.38 10*3/uL Normal 0.10-1.20 [facility] Comment on above: Performed By: #### L ACTIC #### [address] [address] Ripsaw Matcher: Dioni Merlos MD Monocytes/100 WBC (Bld) 5 % Normal 3-12 [facility] Comment on above: Performed By: #### L ACTIC #### [address] [address] Ripsaw Matcher: Dioni Merlos MD Neutrophil (Seg) 81 % High 36-65 [facility] Comment on above: Performed By: #### L ACTIC #### [address] [address] Ripsaw Matcher: Dioni Merlos MD NRBC Automated 0.0 per 100 WBC Normal 0.0 [facility] Comment on above: Performed By: #### L ACTIC #### [address] [address] Ripsaw Matcher: Dioni Merlos MD Platelet mean volume (Bld) [Entitic vol] 9.5 fL Normal 8.1-13.5 [facility] Comment on above: Performed By: #### L ACTIC #### [address] [address] Ripsaw Matcher: Dioni Merlos MD Platelets (Bld) [#/Vol] 409 10*3/uL Normal 138-453 [facility] Comment on above: Performed By: #### L ACTIC #### [address] [address] Ripsaw Matcher: Dioni Merlos MD RBC (Bld) [#/Vol] 3.86 10*6/uL Low 3.95-5.11 [facility] Comment on above: Performed By: #### L ACTIC #### [address] [address] Ripsaw Matcher: Dioni Merlos MD WBC (Bld) [#/Vol] 8.4 10*3/uL Normal 3.5-11.3 [facility] Comment on above: Performed By: #### L ACTIC #### [address] [address] Ripsaw Matcher: Dioni Merlos MD Cult,Fluidon 05-07-2024 Cult,Fluid Specimen Description .ASPIRATE Special Requests Site: Body Fluid Direct Exam FEW NEUTROPHILS NO BACTERIA SEEN Gram stain made from cytocentrifuged specimen. Organisms and cells will be concentrated. Culture POSITIVE Fluid Culture DIRECT GRAM STAIN FROM BOTTLE: GRAM POSITIVE COCCI IN CHAINS VIRIDANS STREPTOCOCCUS GROUP Identified as : STREPTOCOCCUS ANGINOSUS Identificati on by MALDI-TOF (NOTE) Direct Gram Stain from bottle result called to and read back by:WAQAS De Guzman 05/04/24 7920 Report Status FINAL 05/07/2024 SUSCEPTIBILITY Organism SVIR SUE KRISTIN Method HARPER Penicillin <=0.06 SUSCEPTIBLE Susceptible [facility] Comment on above: Performed By: #### C BC, LACTIC #### [address] [address] Ripsaw Matcher: Dioni Merlos MD Occult Blood, Fecalon 2023 Occult Blood 1 Negative Normal NEG [facility] Comment on above: Performed By: #### C RP, HCG, LIP, TROPI, CDP, CP #### [address] [address] Ripsaw Matcher: Dioni Merlos MD Specimen 1 Date [id number] Normal [facility] Comment on above: Performed By: #### C RP, HCG, LIP, TROPI, CDP, CP #### [facility] [address] [place] [address] Ripsaw Matcher: Dioni Merlos MD Specimen 1 Time UNKNOWN Normal [facility] Comment on above: Performed By: #### C RP, HCG, LIP, TROPI, CDP, CP #### [facility] [address] [place] [address] Ripsaw Matcher: Dioni Merlos MD Stool PCR Batteryon 05-07-20 Specimen Description .FECES Normal [facility] Comment on above: Performed By: #### C BC, LACTIC #### [address] [address] Ripsaw Matcher: Dioni Merlos MD Basic Metab w/rfx MGon 05-06 Calcium [Mass/Vol] 8.8 mg/dL Normal 8.6-10.4 [facility] Comment on above: Performed By: #### C RP, HCG, LIP, TROPI, CDP, CP #### [address] [address] Ripsaw Matcher: Dioni Merlos MD Anion gap [Moles/Vol] 8 mmol/L Low 9-16 [facility] Comment on above: Performed By: #### C RP, HCG, LIP, TROPI, CDP, CP #### [address] [address] Ripsaw Matcher: Dioni Merlos MD Chloride [Moles/Vol] 108 mmol/L High 98-107 [facility] Comment on above: Performed By: #### C RP, HCG, LIP, TROPI, CDP, CP #### [address] [address] Ripsaw Matcher: Dioni Merlos MD CO2 [Moles/Vol] 24 mmol/L Normal 20-31 [facility] Comment on above: Performed By: #### C RP, HCG, LIP, TROPI, CDP, CP #### [address] [address] Ripsaw Matcher: Dioni Merlos MD Creatinine [Mass/Vol] 0.5 mg/dL Low 0.6-0.9 [facility] Comment on above: Performed By: #### C RP, HCG, LIP, TROPI, CDP, CP #### [address] [address] Ripsaw Matcher: Dioni Merlos MD GFR/1.73 sq M.predicted among non-blacks MDRD (S/P/Bld) [Vol rate/Area] mL/min/{1.73_m2} Normal >60 [facility] Comment on above: Result Comment: These results are not intended for use in patients <18 years of age. eGFR results are calculated without a race factor using the 2020 CKD-EPI equation. Careful clinical correlation is recommended, particularly when comparing to results calculated using previous equations. The CKD-EPI equation is less accurate in patients with extremes of muscle mass, extra-renal metabolism of creatine, excessive creatine ingestion, or following therapy that affects renal tubular secretion. Performed By: #### C RP, HCG, LIP, TROPI, CDP, CP #### [facility] [address] [place] [address] Ripsaw Matcher: Dioni Merlos MD Glucose [Mass/Vol] 99 mg/dL Normal 74-99 [facility] Comment on above: Performed By: #### C RP, HCG, LIP, TROPI, CDP, CP #### [facility] [address] [place] [address] Ripsaw Matcher: Dioni Merlos MD Potassium [Moles/Vol] 4.2 mmol/L Normal 3.7-5.3 [facility] Comment on above: Performed By: #### C RP, HCG, LIP, TROPI, CDP, CP #### [facility] [address] [place] [address] Ripsaw Matcher: Dioni Merlos MD Sodium [Moles/Vol] 140 mmol/L Normal 136-145 [facility] Comment on above: Performed By: #### C RP, HCG, LIP, TROPI, CDP, CP #### [facility] [address] [place] [address] Ripsaw Matcher: Dioni Merlos MD Urea nitrogen [Mass/Vol] mg/dL Low 6-20 [facility] Comment on above: Performed By: #### C RP, HCG, LIP, TROPI, CDP, CP #### [facility] [address] [place] [address] Ripsaw Matcher: Dioni Merlos MD Basic Metabolic Panel w/ Ref nkechi to MGon 05-06-2024 Anion gap [Moles/Vol] 8 mmol/L Low 9 - 16 mmol/L [facility] Calcium [Mass/Vol] 8.8 mg/dL 8.6 - 10.4 mg/dL [facility] Chloride [Moles/Vol] 108 mmol/L High 98 - 107 mmol/L [facility] CO2 [Moles/Vol] 24 mmol/L 20 - 31 mmol/L [facility] Creatinine [Mass/Vol] 0.5 mg/dL Low 0.6 - 0.9 mg/dL [facility] Margarita Jauregui Rate - PINF [facility] Comment on above: These results are not intended for use in patients <18 years of age. eGFR results are calculated without a race factor using the 2020 CKD-EPI equation. Careful clinical correlation is recommended, particularly when comparing to results calculated using previous equations. The CKD-EPI equation is less accurate in patients with extremes of muscle mass, extra-renal metabolism of creatine, excessive creatine ingestion, or following therapy that affects renal tubular secretion. Glucose [Mass/Vol] 99 mg/dL 74 - 99 mg/dL [facility] Interpretation and review of laboratory results Abnormal [facility] Potassium [Moles/Vol] 4.2 mmol/L 3.7 - 5.3 mmol/L [facility] Sodium [Moles/Vol] 140 mmol/L 136 - 145 mmol/L [facility] Urea nitrogen [Mass/Vol] mg/dL Low 6 - 20 mg/dL [facility] CBC with Auto Differentialon 05-06-2024 Basophils (Bld) [#/Vol] 0.05 10*3/uL [facility] Basophils/100 WBC (Bld) 1 % 0 - 2 % [facility] Eosinophils (Bld) [#/Vol] 0.14 10*3/uL [facility] Eosinophils/100 WBC (Bld) 2 % 1 - 4 % [facility] Erythrocyte distribution width (RBC) [Ratio] 14.0 % 11.8 - 14.4 % [facility] Hematocrit (Bld) [Volume fraction] 30.8 % Low 36.3 - 47.1 % [facility] Hemoglobin (Bld) [Mass/Vol] 9.4 g/dL Low 11.9 - 15.1 g/dL [facility] Immature granulocytes (Bld) [#/Vol] 0.08 10*3/uL [facility] Immature granulocytes/100 WBC (Bld) 1 % High 0 [facility] Interpretation and review of laboratory results Abnormal [facility] Lymphocytes/100 WBC (Bld) 12 % Low 24 - 43 % [facility] Lymphocytes/100 WBC (Bld) 1.15 % [facility] MCH (RBC) [Entitic mass] 27.0 pg 25.2 - 33.5 pg [facility] MCHC (RBC) [Mass/Vol] 30.5 g/dL 28.4 - 34.8 g/dL [facility] MCV (RBC) [Entitic vol] 88.5 fL 82.6 - 102.9 fL [facility] Monocytes/100 WBC (Bld) 5 % 3 - 12 % [facility] Monocytes/100 WBC (Bld) 0.52 % [facility] Neutrophils/100 WBC (Bld) 79 % High 36 - 65 % [facility] Nucleated RBC/100 WBC (Bld) [Ratio] 0.0 % 0.0 per 100 WBC [facility] Platelet mean volume (Bld) [Entitic vol] 9.5 fL 8.1 - 13.5 fL [facility] Platelets (Bld) [#/Vol] 405 10*3/uL [facility] RBC (Bld) [#/Vol] 3.48 10*6/uL Low 3.95 - 5.11 m/uL [facility] Segmented neutrophils/100 WBC (Bld) 7.66 % [facility] WBC other (Bld) [#/Vol] 9.6 [facility] CBC with Diffon 05-06-2024 Abs. Basophil 0.05 k/uL Normal 0.00-0.20 [facility] Comment on above: Performed By: #### C RP, HCG, LIP, TROPI, CDP, CP #### [facility] [place] [address] Ripsaw Matcher: Dioni Merlos MD Abs.Imm.Granulocyte 0.08 k/uL Normal 0.00-0.30 [facility] Comment on above: Performed By: #### C RP, HCG, LIP, TROPI, CDP, CP #### [place] [address] Ripsaw Matcher: Dioni Merlos MD Abs.Neutrophil (Seg) 7.66 k/uL Normal 1.50-8.10 [facility] Comment on above: Performed By: #### C RP, HCG, LIP, TROPI, CDP, CP #### [place] [address] Ripsaw Matcher: Dioni Merlos MD Basophils/100 WBC (Bld) 1 % Normal 0-2 [facility] Comment on above: Performed By: #### C RP, HCG, LIP, TROPI, CDP, CP #### [place] [address] Ripsaw Matcher: Dioni Merlos MD Eosinophils (Bld) [#/Vol] 0.14 10*3/uL Normal 0.00-0.44 [facility] Comment on above: Performed By: #### C RP, HCG, LIP, TROPI, CDP, CP #### [place] [address] Ripsaw Matcher: Dioni Merlos MD Eosinophils/100 WBC (Bld) 2 % Normal 1-4 [facility] Comment on above: Performed By: #### C RP, HCG, LIP, TROPI, CDP, CP #### [place] [address] Ripsaw Matcher: Dioni Merlos MD Erythrocyte distribution width (RBC) [Ratio] 14.0 % Normal 11.8-14.4 [facility] Comment on above: Performed By: #### C RP, HCG, LIP, TROPI, CDP, CP #### [place] [address] Ripsaw Matcher: Dioni Merlos MD Hematocrit (Bld) [Volume fraction] 30.8 % Low 36.3-47.1 [facility] Comment on above: Performed By: #### C RP, HCG, LIP, TROPI, CDP, CP #### [facility] [address] [place] [address] Ripsaw Matcher: Dioni Merlos MD Hemoglobin (Bld) [Mass/Vol] 9.4 g/dL Low 11.9-15.1 [facility] Comment on above: Performed By: #### C RP, HCG, LIP, TROPI, CDP, CP #### [place] [address] Ripsaw Matcher: Dioni Merlos MD Immature granulocytes/100 WBC (Bld) 1 % High 0 [facility] Comment on above: Performed By: #### C RP, HCG, LIP, TROPI, CDP, CP #### [place] [address] Ripsaw Matcher: Dioni Merlos MD Lymphocytes (Bld) [#/Vol] 1.15 10*3/uL Normal 1.10-3.70 [facility] Comment on above: Performed By: #### C RP, HCG, LIP, TROPI, CDP, CP #### [address] [address] Ripsaw Matcher: Dioni Merlos MD Lymphocytes/100 WBC (Bld) 12 % Low 24-43 [facility] Comment on above: Performed By: #### C RP, HCG, LIP, TROPI, CDP, CP #### [place] [address] Ripsaw Matcher: Dioni Merlos MD MCH (RBC) [Entitic mass] 27.0 pg Normal 25.2-33.5 [facility] Comment on above: Performed By: #### C RP, HCG, LIP, TROPI, CDP, CP #### [address] [address] Ripsaw Matcher: Dioni Merlos MD MCHC (RBC) [Mass/Vol] 30.5 g/dL Normal 28.4-34.8 [facility] Comment on above: Performed By: #### C RP, HCG, LIP, TROPI, CDP, CP #### [address] [address] Ripsaw Matcher: Dioni Merlos MD MCV (RBC) [Entitic vol] 88.5 fL Normal 82.6-102.9 [facility] Comment on above: Performed By: #### C RP, HCG, LIP, TROPI, CDP, CP #### [address] [address] Ripsaw Matcher: Dioni Merlos MD Monocytes (Bld) [#/Vol] 0.52 10*3/uL Normal 0.10-1.20 [facility] Comment on above: Performed By: #### C RP, HCG, LIP, TROPI, CDP, CP #### [address] [address] Ripsaw Matcher: Dioni Merlos MD Monocytes/100 WBC (Bld) 5 % Normal 3-12 [facility] Comment on above: Performed By: #### C RP, HCG, LIP, TROPI, CDP, CP #### [address] [address] Ripsaw Matcher: Dioni Merlos MD Neutrophil (Seg) 79 % High 36-65 [facility] Comment on above: Performed By: #### C RP, HCG, LIP, TROPI, CDP, CP #### [address] [address] Ripsaw Matcher: Dioni Merlos MD NRBC Automated 0.0 per 100 WBC Normal 0.0 [facility] Comment on above: Performed By: #### C RP, HCG, LIP, TROPI, CDP, CP #### [address] [address] Ripsaw Matcher: Dioni Merlos MD Platelet mean volume (Bld) [Entitic vol] 9.5 fL Normal 8.1-13.5 [facility] Comment on above: Performed By: #### C RP, HCG, LIP, TROPI, CDP, CP #### [facility] [address] [place] [address] Ripsaw Matcher: Dioni Merlos MD Platelets (Bld) [#/Vol] 405 10*3/uL Normal 138-453 [facility] Comment on above: Performed By: #### C RP, HCG, LIP, TROPI, CDP, CP #### [facility] [address] [place] [address] Ripsaw Matcher: Dioni Merlos MD RBC (Bld) [#/Vol] 3.48 10*6/uL Low 3.95-5.11 [facility] Comment on above: Performed By: #### C RP, HCG, LIP, TROPI, CDP, CP #### [address] [address] Ripsaw Matcher: Dioni Merlos MD WBC (Bld) [#/Vol] 9.6 10*3/uL Normal 3.5-11.3 [facility] Comment on above: Performed By: #### C RP, HCG, LIP, TROPI, CDP, CP #### [facility] [address] [place] [address] Ripsaw Matcher: Dioni Merlos MD CT ABDOMEN PELVIS WO CONTRAS Ton 05-06-2024 CT ABDOMEN PELVIS WO CONTRAST EXAMINATION: CT OF THE ABDOMEN AND PELVIS WITHOUT CONTRAST 05/06/2024 12:25 pm TECHNIQUE: CT of the abdomen and pelvis was performed without the administration of intravenous contrast. Multiplanar reformatted images are provided for review. Automated exposure control, iterative reconstruction, and/or weight based adjustment of the mA/kV was utilized to reduce the radiation dose to as low as reasonably achievable. COMPARISON: CT abdomen/pelvis 05/02/2014. HISTORY: ORDERING SYSTEM PROVIDED HISTORY: re-assess crohns and reassess abscess TECHNOLOGIST PROVIDED HISTORY: re-assess crohns and reassess abscess Is the patient ?->No FINDINGS: Thorax base: Normal heart size with no significant pericardial effusion. The lung bases demonstrate no acute consolidation or pleural effusion. Abdomen: The liver, gallbladder, common bile duct, pancreas, adrenals, kidneys, and spleen are normal. The abdominal aorta appears normal. The bilateral ureters appear unremarkable. There is mild oral contrast opacification of the stomach and duodenum which appear normal. Mid to distal jejunal and ileal moderate distention with contrast distention and bowel wall thickening. Prior ileocecectomy with decompression of the distal ileum at the anastomosis. There is some contrast distending the ileal colonic anastomosis with no evidence of an associated leak. Rectal contrast has been placed and extends to the level of the transverse colon. There is stable descending and sigmoid colonic wall thickening. Stable trace ascites and peritoneal/retroperi toneal edema. Pelvis: In the upper pelvis the multi-septated complex abscess with internal gas foci identified on axial image 133, measures approximately 5.5 x 7.3 cm compared to 7.1 x 7.5 cm. Mild interval decrease in size. In the central to right hemipelvis on axial image 151, there are complex loculated fluid collections measuring approximately 5.5 x 7.8 cm, which previously measured approximately 5.7 x 8.6 cm. In the left hemipelvis there is a loculated lenticular fluid collection on axial image 149, which measures 2.0 cm in thickness compared to 2.2 cm on the prior exam. The bladder demonstrates mild distention. No intraluminal gas foci. Musculoskeletal structures: The body wall soft tissues demonstrate no acute abnormality. Right inferior gluteal subcutaneous oval circumscribed 1.9 cm hypodense mass with average Hounsfield units of 3. This is decreased in size compared to a prior 12/12/2022, exam though likely represents a sebaceous cyst. No adjacent inflammatory changes to suggest secondary infection. Normal bone mineral density. Normal lumbar spine and pelvic alignment. No acute osseous abnormality. IMPRESSION: 1. Stable small bowel and colonic inflammatory changes and adynamic ileus. No evidence of a bowel leak. 2. Stable to slightly improved multiloculated pelvic abscesses. Interpreted by: Willie Reid MD Signed by: Willie Reid MD 05/06/24 Final result Normal [facility] CT Abdomen and Pelvis WO mai whaley 05-06-2024 1. Stable small bowel and colonic inflammatory changes and adynamic ileus. No evidence of a bowel leak. 2. Stable to slightly improved multiloculated pelvic abscesses. [facility] RIS CONSOLIDATED EXAMINATION: CT OF THE ABDOMEN AND PELVIS WITHOUT CONTRAST 05/06/2024 12:25 pm TECHNIQUE: CT of the abdomen and pelvis was performed without the administration of intravenous contrast. Multiplanar reformatted images are provided for review. Automated exposure control, iterative reconstruction, and/or weight based adjustment of the mA/kV was utilized to reduce the radiation dose to as low as reasonably achievable. COMPARISON: CT abdomen/pelvis 05/02/2014. HISTORY: ORDERING SYSTEM PROVIDED HISTORY: re-assess crohns and reassess abscess TECHNOLOGIST PROVIDED HISTORY: re-assess crohns and reassess abscess Is the patient ?->No FINDINGS: Thorax base: Normal heart size with no significant pericardial effusion. The lung bases demonstrate no acute consolidation or pleural effusion. Abdomen: The liver, gallbladder, common bile duct, pancreas, adrenals, kidneys, and spleen are normal. The abdominal aorta appears normal. The bilateral ureters appear unremarkable. There is mild oral contrast opacification of the stomach and duodenum which appear normal. Mid to distal jejunal and ileal moderate distention with contrast distention and bowel wall thickening. Prior ileocecectomy with decompression of the distal ileum at the anastomosis. There is some contrast distending the ileal colonic anastomosis with no evidence of an associated leak. Rectal contrast has been placed and extends to the level of the transverse colon. There is stable descending and sigmoid colonic wall thickening. Stable trace ascites and peritoneal/retroperi toneal edema. Pelvis: In the upper pelvis the multi-septated complex abscess with internal gas foci identified on axial image 133, measures approximately 5.5 x 7.3 cm compared to 7.1 x 7.5 cm. Mild interval decrease in size. In the central to right hemipelvis on axial image 151, there are complex loculated fluid collections measuring approximately 5.5 x 7.8 cm, which previously measured approximately 5.7 x 8.6 cm. In the left hemipelvis there is a loculated lenticular fluid collection on axial image 149, which measures 2.0 cm in thickness compared to 2.2 cm on the prior exam. The bladder demonstrates mild distention. No intraluminal gas foci. Musculoskeletal structures: The body wall soft tissues demonstrate no acute abnormality. Right inferior gluteal subcutaneous oval circumscribed 1.9 cm hypodense mass with average Hounsfield units of 3. This is decreased in size compared to a prior 12/12/2022, exam though likely represents a sebaceous cyst. No adjacent inflammatory changes to suggest secondary infection. Normal bone mineral density. Normal lumbar spine and pelvic alignment. No acute osseous abnormality. [facility] RIS CONSOLIDATED Willie Reid MD - 05/06/2024 EXAMINATION: CT OF THE ABDOMEN AND PELVIS WITHOUT CONTRAST 05/06/2024 12:25 pm TECHNIQUE: CT of the abdomen and pelvis was performed without the administration of intravenous contrast. Multiplanar reformatted images are provided for review. Automated exposure control, iterative reconstruction, and/or weight based adjustment of the mA/kV was utilized to reduce the radiation dose to as low as reasonably achievable. COMPARISON: CT abdomen/pelvis 05/02/2014. HISTORY: ORDERING SYSTEM PROVIDED HISTORY: re-assess crohns and reassess abscess TECHNOLOGIST PROVIDED HISTORY: re-assess crohns and reassess abscess Is the patient ?->No FINDINGS: Thorax base: Normal heart size with no significant pericardial effusion. The lung bases demonstrate no acute consolidation or pleural effusion. Abdomen: The liver, gallbladder, common bile duct, pancreas, adrenals, kidneys, and spleen are normal. The abdominal aorta appears normal. The bilateral ureters appear unremarkable. There is mild oral contrast opacification of the stomach and duodenum which appear normal. Mid to distal jejunal and ileal moderate distention with contrast distention and bowel wall thickening. Prior ileocecectomy with decompression of the distal ileum at the anastomosis. There is some contrast distending the ileal colonic anastomosis with no evidence of an associated leak. Rectal contrast has been placed and extends to the level of the transverse colon. There is stable descending and sigmoid colonic wall thickening. Stable trace ascites and peritoneal/retroperi toneal edema. Pelvis: In the upper pelvis the multi-septated complex abscess with internal gas foci identified on axial image 133, measures approximately 5.5 x 7.3 cm compared to 7.1 x 7.5 cm. Mild interval decrease in size. In the central to right hemipelvis on axial image 151, there are complex loculated fluid collections measuring approximately 5.5 x 7.8 cm, which previously measured approximately 5.7 x 8.6 cm. In the left hemipelvis there is a loculated lenticular fluid collection on axial image 149, which measures 2.0 cm in thickness compared to 2.2 cm on the prior exam. The bladder demonstrates mild distention. No intraluminal gas foci. Musculoskeletal structures: The body wall soft tissues demonstrate no acute abnormality. Right inferior gluteal subcutaneous oval circumscribed 1.9 cm hypodense mass with average Hounsfield units of 3. This is decreased in size compared to a prior 12/12/2022, exam though likely represents a sebaceous cyst. No adjacent inflammatory changes to suggest secondary infection. Normal bone mineral density. Normal lumbar spine and pelvic alignment. No acute osseous abnormality. IMPRESSION: 1. Stable small bowel and colonic inflammatory changes and adynamic ileus. No evidence of a bowel leak. 2. Stable to slightly improved multiloculated pelvic abscesses. [facility] Radiology Study observation (narrative) [facility] CT Abdomen and Pelvis WO con trastOrdered By: Willie Reid on 05-06-2024 [facility] Work Phone: Cult,Bloodon 05-06-2024 Cult,Blood Specimen Description .BLOOD Special Requests LFT AC 10ML Culture NO GROWTH 5 DAYS Report Status FINAL 05/06/2024 [facility] Comment on above: Performed By: #### C RP, HCG, LIP, TROPI, CDP, CP #### [facility] [address] [place] [id number] Ripsaw Matcher: Dioni Merlos MD Cult,Blood Specimen Description .BLOOD Special Requests RAC 5ML Culture NO GROWTH 5 DAYS Report Status FINAL 05/06/2024 [facility] Comment on above: Performed By: #### C BC, LACTIC #### [facility] [address] [place] [address] Ripsaw Matcher: Dioni Merlos MD Culture, Blood 1on 4 Microorganism identified Cx Nom (Unsp spec) NO GROWTH 5 DAYS [facility] Service comment (Unsp spec) [Interp] LFT AC 10ML [facility] Specimen Description .BLOOD [facility] Microorganism identified Cx Nom (Unsp spec) NO GROWTH 5 DAYS [facility] Service comment (Unsp spec) [Interp] RAC 5ML [facility] Specimen Description .BLOOD [facility] Basic Metabolic Panelon Anion gap [Moles/Vol] 11 mmol/L 9 - 16 mmol/L [facility] Calcium [Mass/Vol] 8.6 mg/dL 8.6 - 10.4 mg/dL [facility] Chloride [Moles/Vol] 108 mmol/L High 98 - 107 mmol/L [facility] CO2 [Moles/Vol] 19 mmol/L Low 20 - 31 mmol/L [facility] Creatinine [Mass/Vol] 0.5 mg/dL Low 0.6 - 0.9 mg/dL [facility] Est, Glom Filt Rate - PINF [facility] Comment on above: These results are not intended for use in patients <18 years of age. eGFR results are calculated without a race factor using the 2020 CKD-EPI equation. Careful clinical correlation is recommended, particularly when comparing to results calculated using previous equations. The CKD-EPI equation is less accurate in patients with extremes of muscle mass, extra-renal metabolism of creatine, excessive creatine ingestion, or following therapy that affects renal tubular secretion. Glucose [Mass/Vol] 113 mg/dL High 74 - 99 mg/dL [facility] Interpretation and review of laboratory results Abnormal [facility] Potassium [Moles/Vol] 3.2 mmol/L Low 3.7 - 5.3 mmol/L [facility] Sodium [Moles/Vol] 138 mmol/L 136 - 145 mmol/L [facility] Urea nitrogen [Mass/Vol] mg/dL Low 6 - 20 mg/dL [facility] Basic Metabolic Profon 05-05 Anion gap [Moles/Vol] 11 mmol/L Normal 9-16 [facility] Comment on above: Performed By: #### C BC, LACTIC #### [facility] [address] [place] [address] Ripsaw Matcher: Dioni Merlos MD Calcium [Mass/Vol] 8.6 mg/dL Normal 8.6-10.4 [facility] Comment on above: Performed By: #### C BC, LACTIC #### [facility] [address] [place] [address] Ripsaw Matcher: Dioni Merlos MD Chloride [Moles/Vol] 108 mmol/L High 98-107 [facility] Comment on above: Performed By: #### C BC, LACTIC #### [facility] [address] [place] [address] Ripsaw Matcher: Dioni Merlos MD CO2 [Moles/Vol] 19 mmol/L Low 20-31 [facility] Comment on above: Performed By: #### C BC, LACTIC #### [facility] [address] [place] [address] Ripsaw Matcher: Dioni Merlos MD Creatinine [Mass/Vol] 0.5 mg/dL Low 0.6-0.9 [facility] Comment on above: Performed By: #### C BC, LACTIC #### [address] [address] Ripsaw Matcher: Dioni Merlos MD GFR/1.73 sq M.predicted among non-blacks MDRD (S/P/Bld) [Vol rate/Area] mL/min/{1.73_m2} Normal >60 [facility] Comment on above: Result Comment: These results are not intended for use in patients <18 years of age. eGFR results are calculated without a race factor using the 2020 CKD-EPI equation. Careful clinical correlation is recommended, particularly when comparing to results calculated using previous equations. The CKD-EPI equation is less accurate in patients with extremes of muscle mass, extra-renal metabolism of creatine, excessive creatine ingestion, or following therapy that affects renal tubular secretion. Performed By: #### C BC, LACTIC #### [facility] [address] [place] [address] Ripsaw Matcher: Dioni Merlos MD Glucose [Mass/Vol] 113 mg/dL High 74-99 [facility] Comment on above: Performed By: #### C BC, LACTIC #### [facility] [address] [place] [address] Ripsaw Matcher: Dioni Merlos MD Potassium [Moles/Vol] 3.2 mmol/L Low 3.7-5.3 [facility] Comment on above: Performed By: #### C BC, LACTIC #### [facility] [place] [address] Ripsaw Matcher: Dioni Merlos MD Sodium [Moles/Vol] 138 mmol/L Normal 136-145 [facility] Comment on above: Performed By: #### C BC, LACTIC #### [facility] [address] [place] [address] Ripsaw Matcher: Dioni Merlos MD Urea nitrogen [Mass/Vol] mg/dL Low 6-20 [facility] Comment on above: Performed By: #### C BC, LACTIC #### [facility] [address] [place] [address] Ripsaw Matcher: Dioni Merlos MD CBC with Auto Differentialon 05-05-2024 Basophils (Bld) [#/Vol] 0.04 10*3/uL [facility] Basophils/100 WBC (Bld) 0 % 0 - 2 % [facility] Eosinophils (Bld) [#/Vol] 0.25 10*3/uL [facility] Eosinophils/100 WBC (Bld) 2 % 1 - 4 % [facility] Erythrocyte distribution width (RBC) [Ratio] 14.0 % 11.8 - 14.4 % [facility] Hematocrit (Bld) [Volume fraction] 32.4 % Low 36.3 - 47.1 % [facility] Hemoglobin (Bld) [Mass/Vol] 9.8 g/dL Low 11.9 - 15.1 g/dL [facility] Immature granulocytes (Bld) [#/Vol] 0.09 10*3/uL [facility] Immature granulocytes/100 WBC (Bld) 1 % High 0 [facility] Interpretation and review of laboratory results Abnormal [facility] Lymphocytes/100 WBC (Bld) 7 % Low 24 - 43 % [facility] Lymphocytes/100 WBC (Bld) 0.82 % Low [facility] MCH (RBC) [Entitic mass] 26.6 pg 25.2 - 33.5 pg [facility] MCHC (RBC) [Mass/Vol] 30.2 g/dL 28.4 - 34.8 g/dL [facility] MCV (RBC) [Entitic vol] 87.8 fL 82.6 - 102.9 fL [facility] Monocytes/100 WBC (Bld) 6 % 3 - 12 % [facility] Monocytes/100 WBC (Bld) 0.72 % [facility] Neutrophils/100 WBC (Bld) 84 % High 36 - 65 % [facility] Nucleated RBC/100 WBC (Bld) [Ratio] 0.0 % 0.0 per 100 WBC [facility] Platelet mean volume (Bld) [Entitic vol] 9.2 fL 8.1 - 13.5 fL [facility] Platelets (Bld) [#/Vol] 366 10*3/uL [facility] RBC (Bld) [#/Vol] 3.69 10*6/uL Low 3.95 - 5.11 m/uL [facility] Segmented neutrophils/100 WBC (Bld) 10.26 % High [facility] WBC other (Bld) [#/Vol] 12.2 High [facility] CBC with Diffon 05-05-2024 Abs. Basophil 0.04 k/uL Normal 0.00-0.20 [facility] Comment on above: Performed By: #### C , LACTIC #### [facility] [place] [address] Ripsaw Matcher: Dioni Merlos MD Abs.Imm.Granulocyte 0.09 k/uL Normal 0.00-0.30 [facility] Comment on above: Performed By: #### C BC, LACTIC #### [address] [address] Ripsaw Matcher: Dioni Merlos MD Abs.Neutrophil (Seg) 10.26 k/uL High 1.50-8.10 [facility] Comment on above: Performed By: #### C BC, LACTIC #### [address] [address] Ripsaw Matcher: Dioni Merlos MD Basophils/100 WBC (Bld) 0 % Normal 0-2 [facility] Comment on above: Performed By: #### C BC, LACTIC #### [address] [address] Ripsaw Matcher: Dioni Merlos MD Eosinophils (Bld) [#/Vol] 0.25 10*3/uL Normal 0.00-0.44 [facility] Comment on above: Performed By: #### C BC, LACTIC #### [address] [address] Ripsaw Matcher: Dioni Merlos MD Eosinophils/100 WBC (Bld) 2 % Normal 1-4 [facility] Comment on above: Performed By: #### C BC, LACTIC #### [facility] [address] [place] [address] Ripsaw Matcher: Dioni Merlos MD Erythrocyte distribution width (RBC) [Ratio] 14.0 % Normal 11.8-14.4 [facility] Comment on above: Performed By: #### C BC, LACTIC #### [facility] [address] [place] [address] Ripsaw Matcher: Dioni Merlos MD Hematocrit (Bld) [Volume fraction] 32.4 % Low 36.3-47.1 [facility] Comment on above: Performed By: #### C BC, LACTIC #### [address] [address] Ripsaw Matcher: Dioni Merlos MD Hemoglobin (Bld) [Mass/Vol] 9.8 g/dL Low 11.9-15.1 [facility] Comment on above: Performed By: #### C BC, LACTIC #### [address] [address] Ripsaw Matcher: Dioni Merlos MD Immature granulocytes/100 WBC (Bld) 1 % High 0 [facility] Comment on above: Performed By: #### C BC, LACTIC #### [address] [address] Ripsaw Matcher: Dioni Merlos MD Lymphocytes (Bld) [#/Vol] 0.82 10*3/uL Low 1.10-3.70 [facility] Comment on above: Performed By: #### C BC, LACTIC #### [address] [address] Ripsaw Matcher: Dioni Merlos MD Lymphocytes/100 WBC (Bld) 7 % Low 24-43 [facility] Comment on above: Performed By: #### C BC, LACTIC #### [address] [address] Ripsaw Matcher: Dioni Merlos MD MCH (RBC) [Entitic mass] 26.6 pg Normal 25.2-33.5 [facility] Comment on above: Performed By: #### C BC, LACTIC #### [address] [address] Ripsaw Matcher: Dioni Merlos MD MCHC (RBC) [Mass/Vol] 30.2 g/dL Normal 28.4-34.8 [facility] Comment on above: Performed By: #### C BC, LACTIC #### [address] [address] Ripsaw Matcher: Dioni Merlos MD MCV (RBC) [Entitic vol] 87.8 fL Normal 82.6-102.9 [facility] Comment on above: Performed By: #### C BC, LACTIC #### [address] [address] Ripsaw Matcher: Dioni Merlos MD Monocytes (Bld) [#/Vol] 0.72 10*3/uL Normal 0.10-1.20 [facility] Comment on above: Performed By: #### C BC, LACTIC #### [address] [address] Ripsaw Matcher: Dioni Merlos MD Monocytes/100 WBC (Bld) 6 % Normal 3-12 [facility] Comment on above: Performed By: #### C BC, LACTIC #### [address] [address] Ripsaw Matcher: Dioni Merlos MD Neutrophil (Seg) 84 % High 36-65 [facility] Comment on above: Performed By: #### C BC, LACTIC #### [address] [address] Ripsaw Matcher: Dioni Merlos MD NRBC Automated 0.0 per 100 WBC Normal 0.0 [facility] Comment on above: Performed By: #### C BC, LACTIC #### [address] [address] Ripsaw Matcher: Dioni Merlos MD Platelet mean volume (Bld) [Entitic vol] 9.2 fL Normal 8.1-13.5 [facility] Comment on above: Performed By: #### C BC, LACTIC #### [address] [address] Ripsaw Matcher: Dioni Merlos MD Platelets (Bld) [#/Vol] 366 10*3/uL Normal 138-453 [facility] Comment on above: Performed By: #### C BC, LACTIC #### [facility] [address] [place] [address] Ripsaw Matcher: Dioni Merlos MD RBC (Bld) [#/Vol] 3.69 10*6/uL Low 3.95-5.11 [facility] Comment on above: Performed By: #### C BC, LACTIC #### [facility] [address] [place] [address] Ripsaw Matcher: Dioni Merlos MD WBC (Bld) [#/Vol] 12.2 10*3/uL High 3.5-11.3 [facility] Comment on above: Performed By: #### C BC, LACTIC #### [facility] [address] [place] [address] Ripsaw Matcher: Dioni Merlos MD K (Potassium)on 05-05-2024 Potassium [Moles/Vol] 3.0 mmol/L Low 3.7-5.3 [facility] Comment on above: Performed By: #### L ACTIC #### [address] [address] Ripsaw Matcher: Dioni Merlos MD No Panel Informationon 05-05 Interpretation and review of laboratory results Abnormal [facility] Phosphoruson 05-05-2024 Phosphate [Mass/Vol] 2.4 mg/dL Low 2.5 - 4.5 mg/dL [facility] Phosphorus, Inorg.on 024 Phosphorus, Inorg. 2.4 mg/dL Low 2.5-4.5 [facility] Comment on above: Performed By: #### C BC, LACTIC #### [facility] [address] [place] [address] Ripsaw Matcher: Dioni Merlos MD Potassiumon 05-05-2024 Interpretation and review of laboratory results Abnormal [facility] Potassium [Moles/Vol] 3.0 mmol/L Low 3.7 - 5.3 mmol/L [facility] Vancomycin Level, Randomon 1 07-05-2023 Vancomycin [Mass/Vol] 44.1 ug/mL High 5.0 - 40.0 ug/mL [facility] Comment on above: Higher trough serum vancomycin concentrations of 15-20 ug/mL are recommended for complicated infections such as bacteremia, endocarditis, osteomyelitis, meningitis, and hospital acquired pneumonia. Vancomycin,Randomon 05-05-20 Vancomycin 44.1 ug/mL High 5.0-40.0 [facility] Comment on above: Result Comment: High er trough serum vancomycin concentrations of 15-20 ug/mL are recommended for complicated infections such as bacteremia, endocarditis, osteomyelitis, meningitis, and hospital acquired pneumonia. Performed By: #### C , LACTIC #### [facility] [address] [place] [address] Ripsaw Matcher: Dioni Merlos MD CBC with Auto Differentialon 05-04-2024 Basophils (Bld) [#/Vol] 0.03 10*3/uL [facility] Basophils/100 WBC (Bld) 0 % 0 - 2 % [facility] Eosinophils (Bld) [#/Vol] 0.18 10*3/uL [facility] Eosinophils/100 WBC (Bld) 1 % 1 - 4 % [facility] Erythrocyte distribution width (RBC) [Ratio] 14.0 % 11.8 - 14.4 % [facility] Hematocrit (Bld) [Volume fraction] 30.6 % Low 36.3 - 47.1 % [facility] Hemoglobin (Bld) [Mass/Vol] 9.5 g/dL Low 11.9 - 15.1 g/dL [facility] Immature granulocytes (Bld) [#/Vol] 0.12 10*3/uL [facility] Immature granulocytes/100 WBC (Bld) 1 % High 0 [facility] Interpretation and review of laboratory results Abnormal [facility] Lymphocytes/100 WBC (Bld) 5 % Low 24 - 43 % [facility] Lymphocytes/100 WBC (Bld) 0.81 % Low [facility] MCH (RBC) [Entitic mass] 26.5 pg 25.2 - 33.5 pg [facility] MCHC (RBC) [Mass/Vol] 31.0 g/dL 28.4 - 34.8 g/dL [facility] MCV (RBC) [Entitic vol] 85.2 fL 82.6 - 102.9 fL [facility] Monocytes/100 WBC (Bld) 5 % 3 - 12 % [facility] Monocytes/100 WBC (Bld) 0.79 % [facility] Neutrophils/100 WBC (Bld) 88 % High 36 - 65 % [facility] Nucleated RBC/100 WBC (Bld) [Ratio] 0.0 % 0.0 per 100 WBC [facility] Platelet mean volume (Bld) [Entitic vol] 9.1 fL 8.1 - 13.5 fL [facility] Platelets (Bld) [#/Vol] 319 10*3/uL [facility] RBC (Bld) [#/Vol] 3.59 10*6/uL Low 3.95 - 5.11 m/uL [facility] Segmented neutrophils/100 WBC (Bld) 14.09 % High [facility] WBC other (Bld) [#/Vol] 16.0 High [facility] CBC with Diffon 05-04-2024 Abs. Basophil 0.03 k/uL Normal 0.00-0.20 [facility] Comment on above: Performed By: #### C RP, HCG, LIP, TROPI, CDP, CP #### [employer] [address] [place] [address] Ripsaw Matcher: Dioni Merlos MD Abs.Imm.Granulocyte 0.12 k/uL Normal 0.00-0.30 [facility] Comment on above: Performed By: #### C RP, HCG, LIP, TROPI, CDP, CP #### [address] [address] Ripsaw Matcher: Dioni Merlos MD Abs.Neutrophil (Seg) 14.09 k/uL High 1.50-8.10 [facility] Comment on above: Performed By: #### C RP, HCG, LIP, TROPI, CDP, CP #### [place] [address] Ripsaw Matcher: Dioni Merlos MD Basophils/100 WBC (Bld) 0 % Normal 0-2 [facility] Comment on above: Performed By: #### C RP, HCG, LIP, TROPI, CDP, CP #### [place] [address] Ripsaw Matcher: Dioni Merlos MD Eosinophils (Bld) [#/Vol] 0.18 10*3/uL Normal 0.00-0.44 [facility] Comment on above: Performed By: #### C RP, HCG, LIP, TROPI, CDP, CP #### [place] [address] Ripsaw Matcher: Dioni Merlos MD Eosinophils/100 WBC (Bld) 1 % Normal 1-4 [facility] Comment on above: Performed By: #### C RP, HCG, LIP, TROPI, CDP, CP #### [place] [address] Ripsaw Matcher: Dioni Merlos MD Erythrocyte distribution width (RBC) [Ratio] 14.0 % Normal 11.8-14.4 [facility] Comment on above: Performed By: #### C RP, HCG, LIP, TROPI, CDP, CP #### [place] [address] Ripsaw Matcher: Dioni Merlos MD Hematocrit (Bld) [Volume fraction] 30.6 % Low 36.3-47.1 [facility] Comment on above: Performed By: #### C RP, HCG, LIP, TROPI, CDP, CP #### [address] [address] Ripsaw Matcher: Dioni Merlos MD Hemoglobin (Bld) [Mass/Vol] 9.5 g/dL Low 11.9-15.1 [facility] Comment on above: Performed By: #### C RP, HCG, LIP, TROPI, CDP, CP #### [address] [address] Ripsaw Matcher: Dioni Merlos MD Immature granulocytes/100 WBC (Bld) 1 % High 0 [facility] Comment on above: Performed By: #### C RP, HCG, LIP, TROPI, CDP, CP #### [place] [address] Ripsaw Matcher: Dioni Merlos MD Lymphocytes (Bld) [#/Vol] 0.81 10*3/uL Low 1.10-3.70 [facility] Comment on above: Performed By: #### C RP, HCG, LIP, TROPI, CDP, CP #### [address] [address] Ripsaw Matcher: Dioni Merlos MD Lymphocytes/100 WBC (Bld) 5 % Low 24-43 [facility] Comment on above: Performed By: #### C RP, HCG, LIP, TROPI, CDP, CP #### [address] [address] Ripsaw Matcher: Dioni Merlos MD MCH (RBC) [Entitic mass] 26.5 pg Normal 25.2-33.5 [facility] Comment on above: Performed By: #### C RP, HCG, LIP, TROPI, CDP, CP #### [address] [address] Ripsaw Matcher: Dioni Merlos MD MCHC (RBC) [Mass/Vol] 31.0 g/dL Normal 28.4-34.8 [facility] Comment on above: Performed By: #### C RP, HCG, LIP, TROPI, CDP, CP #### [address] [address] Ripsaw Matcher: Dioni Merlos MD MCV (RBC) [Entitic vol] 85.2 fL Normal 82.6-102.9 [facility] Comment on above: Performed By: #### C RP, HCG, LIP, TROPI, CDP, CP #### [address] [address] Ripsaw Matcher: Dioni Merlos MD Monocytes (Bld) [#/Vol] 0.79 10*3/uL Normal 0.10-1.20 [facility] Comment on above: Performed By: #### C RP, HCG, LIP, TROPI, CDP, CP #### [address] [address] Ripsaw Matcher: Dioni Merlos MD Monocytes/100 WBC (Bld) 5 % Normal 3-12 [facility] Comment on above: Performed By: #### C RP, HCG, LIP, TROPI, CDP, CP #### [address] [address] Ripsaw Matcher: Dioni Merlos MD Neutrophil (Seg) 88 % High 36-65 [facility] Comment on above: Performed By: #### C RP, HCG, LIP, TROPI, CDP, CP #### [address] [address] Ripsaw Matcher: Dioni Merlos MD NRBC Automated 0.0 per 100 WBC Normal 0.0 [facility] Comment on above: Performed By: #### C RP, HCG, LIP, TROPI, CDP, CP #### [address] [address] Ripsaw Matcher: Dioni Merlos MD Platelet mean volume (Bld) [Entitic vol] 9.1 fL Normal 8.1-13.5 [facility] Comment on above: Performed By: #### C RP, HCG, LIP, TROPI, CDP, CP #### [address] [address] Ripsaw Matcher: Dioni Merlos MD Platelets (Bld) [#/Vol] 319 10*3/uL Normal 138-453 [facility] Comment on above: Performed By: #### C RP, HCG, LIP, TROPI, CDP, CP #### [address] [address] Ripsaw Matcher: Dioni Merlos MD RBC (Bld) [#/Vol] 3.59 10*6/uL Low 3.95-5.11 [facility] Comment on above: Performed By: #### C RP, HCG, LIP, TROPI, CDP, CP #### [address] [address] Ripsaw Matcher: Dioni Merlos MD WBC (Bld) [#/Vol] 16.0 10*3/uL High 3.5-11.3 [facility] Comment on above: Performed By: #### C RP, HCG, LIP, TROPI, CDP, CP #### [address] [address] Ripsaw Matcher: Dioni Merlos MD CT Guidance for drainage of abscess and placement of drainage catheter of Unspecified body regionon 05-04-[address]-guided pelvic fluid collection aspiration using a left transgluteal approach. [facility] Jose Manuel Rosa MD - 05/04/2024 PROCEDURE: CT GUIDEDPELVIC FLUID NEEDLE PLACEMENT/ASPIRATION MODERATE CONSCIOUS SEDATION 05/03/2024 HISTORY: ORDERING SYSTEM PROVIDED HISTORY: Please perform CT guided IR aspiration of abdominal abscess TECHNOLOGIST PROVIDED HISTORY: Please perform CT guided IR aspiration of abdominal abscess Is the patient ?->No Reason for Exam: Pelvic abscess aspirate Multilobulated pelvic fluid collection, Crohn's disease SEDATION: Moderate sedation was ordered and supervised by the attending with physician [id number] monitoring. Medications were provided and recorded by Radiology nurses. DOSE: DOSE/DLP: 351.91 mGy-cm Dose modulation, iterative reconstruction, and/or weight based adjustment of the mA/kV was utilized to reduce the radiation dose to as low as reasonably achievable. TECHNIQUE/PROCEDURE DETAILS: Informed consent was obtained after a detailed explanation of the procedure including risks. [place]erson protocol was followed. Sterile gown, masks, hats, and gloves utilized for maximal sterile barrier. The patient was placed in the prone position on the CT couch. A legal services professional scan was performed of the pelvis. The previously identified pelvic fluid was re-identified, and contrast could still be seen within the rectum/sigmoid colon. Moderate conscious sedation was initiated. A site was selected for drainage in the left perirectal region using a transgluteal approach. The skin was prepped and draped in sterile manner, and 1% lidocaine was utilized for local anesthetic. A 5 Scottish 9 Yueh needle sheath was advanced under intermittent CT guidance into the fluid collection. Aspiration through this needle yielded 18 mL cloudy yellow fluid. This aspiration appear to collapse the locule of fluid in which the needle was placed, but at least one more loculation could still be seen within the field of view. The needle was removed. Blood loss was minimal. COMPLICATIONS: None immediately apparent. IMPRESSION: Technically successful CT-guided pelvic fluid collection aspiration using a left transgluteal approach. [facility] Lactic Acidon 05-04-2024 Lactic Acid, Whole Blood 0.9 mmol/L 0.7 - 2.1 mmol/L [facility] Lactic Acid,Whole Bl 0.9 mmol/L Normal 0.7-2.1 [facility] Comment on above: Performed By: #### C #### [facility] [address] [place] [address] Ripsaw Matcher: Dioni Merlos MD Interpretation and review of laboratory results Abnormal [facility] Lactic Acid, Whole Blood 0.5 mmol/L Low 0.7 - 2.1 mmol/L [facility] Lactic Acid,Whole Bl 0.5 mmol/L Low 0.7-2.1 [facility] Comment on above: Performed By: #### C RP #### [facility] [address] [place] [address] [id number] Ripsaw Matcher: Dioni Merlos MD Basic Metabolic Panelon 10-3 Est, Margarita Gallolashawn Rate - PINF [facility] Comment on above: These results are not intended for use in patients <18 years of age. eGFR results are calculated without a race factor using the 2020 CKD-EPI equation. Careful clinical correlation is recommended, particularly when comparing to results calculated using previous equations. The CKD-EPI equation is less accurate in patients with extremes of muscle mass, extra-renal metabolism of creatine, excessive creatine ingestion, or following therapy that affects renal tubular secretion. Interpretation and review of laboratory results Abnormal [facility] Basic Metabolic Profon 05-03 Anion gap [Moles/Vol] 17 mmol/L High 9-16 [facility] Comment on above: Performed By: #### C RP, HCG, LIP, TROPI, CDP, CP #### [facility] [address] [place] [address] Ripsaw Matcher: Dioni Merlos MD Calcium [Mass/Vol] 7.9 mg/dL Low 8.6-10.4 [facility] Comment on above: Performed By: #### C RP, HCG, LIP, TROPI, CDP, CP #### [facility] [address] [place] [id number] Ripsaw Matcher: Dioni Merlos MD Chloride [Moles/Vol] 104 mmol/L Normal 98-107 [facility] Comment on above: Performed By: #### C RP, HCG, LIP, TROPI, CDP, CP #### [facility] [address] [place] [address] [phone] Ripsaw Matcher: Dioni Merlos MD CO2 [Moles/Vol] 13 mmol/L Low 20-31 [facility] Comment on above: Performed By: #### C RP, HCG, LIP, TROPI, CDP, CP #### [address] [address] Ripsaw Matcher: Dioni Merlos MD Creatinine [Mass/Vol] 0.5 mg/dL Low 0.6-0.9 [facility] Comment on above: Performed By: #### C RP, HCG, LIP, TROPI, CDP, CP #### [address] [address] Ripsaw Matcher: Dioni Merlos MD GFR/1.73 sq M.predicted among non-blacks MDRD (S/P/Bld) [Vol rate/Area] mL/min/{1.73_m2} Normal >60 [facility] Comment on above: Result Comment: These results are not intended for use in patients <18 years of age. eGFR results are calculated without a race factor using the 2020 CKD-EPI equation. Careful clinical correlation is recommended, particularly when comparing to results calculated using previous equations. The CKD-EPI equation is less accurate in patients with extremes of muscle mass, extra-renal metabolism of creatine, excessive creatine ingestion, or following therapy that affects renal tubular secretion. Performed By: #### C RP, HCG, LIP, TROPI, CDP, CP #### [address] [address] Ripsaw Matcher: Dioin Merlos MD Glucose [Mass/Vol] 60 mg/dL Low 74-99 [facility] Comment on above: Performed By: #### C RP, HCG, LIP, TROPI, CDP, CP #### [address] [address] Ripsaw Matcher: Dioni Merlos MD Potassium [Moles/Vol] 3.7 mmol/L Normal 3.7-5.3 [facility] Comment on above: Performed By: #### C RP, HCG, LIP, TROPI, CDP, CP #### [address] [address] Ripsaw Matcher: Dioni Merlos MD Sodium [Moles/Vol] 134 mmol/L Low 136-145 [facility] Comment on above: Performed By: #### C RP, HCG, LIP, TROPI, CDP, CP #### [facility] [address] [place], [place] [phone] Ripsaw Matcher: Dioni Merlos MD Urea nitrogen [Mass/Vol] 3 mg/dL Low 6-20 [facility] Comment on above: Performed By: #### C RP, HCG, LIP, TROPI, CDP, CP #### [facility] [address] [place] [address] Ripsaw Matcher: Dioni Merlos MD CBC with Auto Differentialon 05-03-2024 Basophils (Bld) [#/Vol] 0.00 10*3/uL [facility] Basophils/100 WBC (Bld) 0 % 0 - 2 % [facility] Eosinophils (Bld) [#/Vol] 0.18 10*3/uL [facility] Eosinophils/100 WBC (Bld) 1 % 1 - 4 % [facility] Erythrocyte distribution width (RBC) [Ratio] 14.5 % High 11.8 - 14.4 % [facility] Hematocrit (Bld) [Volume fraction] 34.5 % Low 36.3 - 47.1 % [facility] Hemoglobin (Bld) [Mass/Vol] 9.5 g/dL Low 11.9 - 15.1 g/dL [facility] Immature granulocytes (Bld) [#/Vol] 0.18 10*3/uL [facility] Immature granulocytes/100 WBC (Bld) 1 % High 0 [facility] Interpretation and review of laboratory results Abnormal [facility] Lymphocytes/100 WBC (Bld) 5 % Low 24 - 43 % [facility] Lymphocytes/100 WBC (Bld) 0.91 % Low [facility] MCH (RBC) [Entitic mass] 26.9 pg 25.2 - 33.5 pg [facility] MCHC (RBC) [Mass/Vol] 27.5 g/dL Low 28.4 - 34.8 g/dL [facility] MCV (RBC) [Entitic vol] 97.7 fL 82.6 - 102.9 fL [facility] Monocytes/100 WBC (Bld) 4 % 3 - 12 % [facility] Monocytes/100 WBC (Bld) 0.73 % [facility] Morphology Eliu (Bld) [Interp] Normal [facility] GOBA Neutrophils/100 WBC (Bld) 89 % High 36 - 65 % [facility] Nucleated RBC/100 WBC (Bld) [Ratio] 0.0 % 0.0 per 100 WBC [facility] Platelet mean volume (Bld) [Entitic vol] 9.1 fL 8.1 - 13.5 fL [facility] Platelets (Bld) [#/Vol] 304 10*3/uL [facility] GOBA RBC (Bld) [#/Vol] 3.53 10*6/uL Low 3.95 - 5.11 m/uL [facility] Segmented neutrophils/100 WBC (Bld) 16.20 % High [facility] WBC other (Bld) [#/Vol] 18.2 High [facility] CBC with Diffon 05-03-2024 Abs. Basophil 0.00 k/uL Normal 0.00-0.20 [facility] Comment on above: Performed By: #### C RP, HCG, LIP, TROPI, CDP, CP #### [facility] [address] [place] [address] Ripsaw Matcher: Dioni Merlos MD Abs.Imm.Granulocyte 0.18 k/uL Normal 0.00-0.30 [facility] Comment on above: Performed By: #### C RP, HCG, LIP, TROPI, CDP, CP #### [employer] [address] [place] [address] Ripsaw Matcher: Dioni Merlos MD Abs.Neutrophil (Seg) 16.20 k/uL High 1.50-8.10 [facility] Comment on above: Performed By: #### C RP, HCG, LIP, TROPI, CDP, CP #### [address] [address] Ripsaw Matcher: Dinoi Merlos MD Basophils/100 WBC (Bld) 0 % Normal 0-2 [facility] Comment on above: Performed By: #### C RP, HCG, LIP, TROPI, CDP, CP #### [address] [address] Ripsaw Matcher: Dioni Merlos MD Eosinophils (Bld) [#/Vol] 0.18 10*3/uL Normal 0.00-0.44 [facility] Comment on above: Performed By: #### C RP, HCG, LIP, TROPI, CDP, CP #### [place] [address] Ripsaw Matcher: Dioni Merlos MD Eosinophils/100 WBC (Bld) 1 % Normal 1-4 [facility] Comment on above: Performed By: #### C RP, HCG, LIP, TROPI, CDP, CP #### [place] [address] Ripsaw Matcher: Dioni Merlos MD Immature granulocytes/100 WBC (Bld) 1 % High 0 [facility] Comment on above: Performed By: #### C RP, HCG, LIP, TROPI, CDP, CP #### [place] [address] Ripsaw Matcher: Dioni Merlos MD Lymphocytes (Bld) [#/Vol] 0.91 10*3/uL Low 1.10-3.70 [facility] Comment on above: Performed By: #### C RP, HCG, LIP, TROPI, CDP, CP #### [address] [address] Ripsaw Matcher: Dioni Merlos MD Lymphocytes/100 WBC (Bld) 5 % Low 24-43 [facility] Comment on above: Performed By: #### C RP, HCG, LIP, TROPI, CDP, CP #### [address] [address] Ripsaw Matcher: Dioni Merlos MD Monocytes (Bld) [#/Vol] 0.73 10*3/uL Normal 0.10-1.20 [facility] Comment on above: Performed By: #### C RP, HCG, LIP, TROPI, CDP, CP #### [address] [address] Ripsaw Matcher: Dioni Merlos MD Monocytes/100 WBC (Bld) 4 % Normal 3-12 [facility] Comment on above: Performed By: #### C RP, HCG, LIP, TROPI, CDP, CP #### [address] [address] Ripsaw Matcher: Dioni Merlos MD Morphology Eliu (Bld) [Interp] Normal Normal [facility] Comment on above: Performed By: #### C RP, HCG, LIP, TROPI, CDP, CP #### [address] [address] Ripsaw Matcher: Dioni Merlos MD Neutrophil (Seg) 89 % High 36-65 [facility] Comment on above: Performed By: #### C RP, HCG, LIP, TROPI, CDP, CP #### [address] [address] Ripsaw Matcher: Dioni Merlos MD Erythrocyte distribution width (RBC) [Ratio] 14.5 % High 11.8-14.4 [facility] Comment on above: Performed By: #### C RP, HCG, LIP, TROPI, CDP, CP #### [address] [address] Ripsaw Matcher: Dioni Merlos MD Hematocrit (Bld) [Volume fraction] 34.5 % Low 36.3-47.1 [facility] Comment on above: Performed By: #### C RP, HCG, LIP, TROPI, CDP, CP #### [address] [address] Ripsaw Matcher: Dioni Merlos MD Hemoglobin (Bld) [Mass/Vol] 9.5 g/dL Low 11.9-15.1 [facility] Comment on above: Performed By: #### C RP, HCG, LIP, TROPI, CDP, CP #### [address] [address] Ripsaw Matcher: Dioni Merlos MD MCH (RBC) [Entitic mass] 26.9 pg Normal 25.2-33.5 [facility] Comment on above: Performed By: #### C RP, HCG, LIP, TROPI, CDP, CP #### [place] [address] Ripsaw Matcher: Dioni Merlos MD MCHC (RBC) [Mass/Vol] 27.5 g/dL Low 28.4-34.8 [facility] Comment on above: Performed By: #### C RP, HCG, LIP, TROPI, CDP, CP #### [place] [address] Ripsaw Matcher: Dioni Merlos MD MCV (RBC) [Entitic vol] 97.7 fL Normal 82.6-102.9 [facility] Comment on above: Performed By: #### C RP, HCG, LIP, TROPI, CDP, CP #### [place] [address] Ripsaw Matcher: Dioni Merlos MD NRBC Automated 0.0 per 100 WBC Normal 0.0 [facility] Comment on above: Performed By: #### C RP, HCG, LIP, TROPI, CDP, CP #### [address] [place] [address] Ripsaw Matcher: Dioni Merlos MD Platelet mean volume (Bld) [Entitic vol] 9.1 fL Normal 8.1-13.5 [facility] Comment on above: Performed By: #### C RP, HCG, LIP, TROPI, CDP, CP #### [facility] [address] [place] [address] Ripsaw Matcher: Dioni Merlos MD Platelets (Bld) [#/Vol] 304 10*3/uL Normal 138-453 [facility] Comment on above: Performed By: #### C RP, HCG, LIP, TROPI, CDP, CP #### [facility] [address] [place] [address] Ripsaw Matcher: Dioni Merlos MD RBC (Bld) [#/Vol] 3.53 10*6/uL Low 3.95-5.11 [facility] Comment on above: Performed By: #### C RP, HCG, LIP, TROPI, CDP, CP #### [facility] [address] [place] [address] Ripsaw Matcher: Dioni Merlos MD WBC (Bld) [#/Vol] 18.2 10*3/uL High 3.5-11.3 [facility] Comment on above: Performed By: #### C RP, HCG, LIP, TROPI, CDP, CP #### [facility] [address] [place] [address] Ripsaw Matcher: Dioni Merlos MD CT Guidance for drainage of abscess and placement of drainage catheter of Unspecified body regionon 05-03-2024 Radiology Study observation (narrative) [facility] Lactic Acidon 05-03-2024 Interpretation and review of laboratory results Abnormal [facility] Lactic Acid, Whole Blood 0.6 mmol/L Low 0.7 - 2.1 mmol/L [facility] Lactic Acid,Whole Bl 0.6 mmol/L Low 0.7-2.1 [facility] Comment on above: Performed By: #### C RP, HCG, LIP, TROPI, CDP, CP #### [facility] [address] [place] [address] Ripsaw Matcher: Dioni Merlos MD No Panel Informationon 05-03 [facility] Vancomycin Level, Randomon Vancomycin [Mass/Vol] 5.6 ug/mL 5.0 - 40.0 ug/mL [facility] Comment on above: Higher trough serum vancomycin concentrations of 15-20 ug/mL are recommended for complicated infections such as bacteremia, endocarditis, osteomyelitis, meningitis, and hospital acquired pneumonia. Vancomycin,Randomon 05-03-20 Vancomycin 5.6 ug/mL Normal 5.0-40.0 [facility] Comment on above: Result Comment: High er trough serum vancomycin concentrations of 15-20 ug/mL are recommended for complicated infections such as bacteremia, endocarditis, osteomyelitis, meningitis, and hospital acquired pneumonia. Performed By: #### C RP, HCG, LIP, TROPI, CDP, CP #### [facility] [address] [place] [address] Ripsaw Matcher: Dioni Merlos MD Basic Metab w/rfx MGon 05-02 Anion gap [Moles/Vol] 11 mmol/L Normal 9-16 [facility] Comment on above: Performed By: #### C BC, LACTIC #### [facility] [address] [place] [address] Ripsaw Matcher: Dioni Merlos MD Calcium [Mass/Vol] 8.2 mg/dL Low 8.6-10.4 [facility] Comment on above: Performed By: #### C BC, LACTIC #### [facility] [address] [place] [address] Ripsaw Matcher: Dioni Merlos MD Chloride [Moles/Vol] 99 mmol/L Normal 98-107 [facility] Comment on above: Performed By: #### C BC, LACTIC #### [facility] [address] [place] [address] Ripsaw Matcher: Dioni Merlos MD CO2 [Moles/Vol] 23 mmol/L Normal 20-31 [facility] Comment on above: Performed By: #### C BC, LACTIC #### [facility] [address] [place] [address] Ripsaw Matcher: Dioni Merlos MD Creatinine [Mass/Vol] 0.5 mg/dL Low 0.6-0.9 [facility] Comment on above: Performed By: #### C BC, LACTIC #### [facility] [address] [place] [address] Ripsaw Matcher: Dioni Merlos MD GFR/1.73 sq M.predicted among non-blacks MDRD (S/P/Bld) [Vol rate/Area] mL/min/{1.73_m2} Normal >60 [facility] Comment on above: Result Comment: These results are not intended for use in patients <18 years of age. eGFR results are calculated without a race factor using the 2020 CKD-EPI equation. Careful clinical correlation is recommended, particularly when comparing to results calculated using previous equations. The CKD-EPI equation is less accurate in patients with extremes of muscle mass, extra-renal metabolism of creatine, excessive creatine ingestion, or following therapy that affects renal tubular secretion. Performed By: #### C BC, LACTIC #### [facility] [address] [place] [address] Ripsaw Matcher: Dioni Merlos MD Glucose [Mass/Vol] 82 mg/dL Normal 74-99 [facility] Comment on above: Performed By: #### C BC, LACTIC #### [facility] [address] [place] [address] Ripsaw Matcher: Dioni Merlos MD Potassium [Moles/Vol] 3.4 mmol/L Low 3.7-5.3 [facility] Comment on above: Performed By: #### C BC, LACTIC #### [facility] [address] [place], [place] [id number] Ripsaw Matcher: Dioni Merlos MD Sodium [Moles/Vol] 133 mmol/L Low 136-145 [facility] Comment on above: Performed By: #### C BC, LACTIC #### [facility] [address] [place] [address] Ripsaw Matcher: Dioni Merlos MD Urea nitrogen [Mass/Vol] 3 mg/dL Low 6-20 [facility] Comment on above: Performed By: #### C BC, LACTIC #### [facility] [address] [place], [place] [id number] Ripsaw Matcher: Dioni Merlos MD Basic Metabolic Panel w/ Ref nkechi to [facility] 05-02-2024 Anion gap [Moles/Vol] 11 mmol/L 9 - 16 mmol/L [email or web address] Calcium [Mass/Vol] 8.2 mg/dL Low 8.6 - 10.4 mg/dL [facility] Chloride [Moles/Vol] 99 mmol/L 98 - 107 mmol/L [facility] CO2 [Moles/Vol] 23 mmol/L 20 - 31 mmol/L [facility] Creatinine [Mass/Vol] 0.5 mg/dL Low 0.6 - 0.9 mg/dL [facility] Est, Glom Filt Rate - PINF [facility] Comment on above: These results are not intended for use in patients <18 years of age. eGFR results are calculated without a race factor using the 2020 CKD-EPI equation. Careful clinical correlation is recommended, particularly when comparing to results calculated using previous equations. The CKD-EPI equation is less accurate in patients with extremes of muscle mass, extra-renal metabolism of creatine, excessive creatine ingestion, or following therapy that affects renal tubular secretion. Glucose [Mass/Vol] 82 mg/dL 74 - 99 mg/dL [facility] Potassium [Moles/Vol] 3.4 mmol/L Low 3.7 - 5.3 mmol/L [facility] Sodium [Moles/Vol] 133 mmol/L Low 136 - 145 mmol/L [facility] Urea nitrogen [Mass/Vol] 3 mg/dL Low 6 - 20 mg/dL [facility] CBC with Auto Differentialon 05-02-2024 Basophils (Bld) [#/Vol] 0.00 10*3/uL [facility] Basophils/100 WBC (Bld) 0 % 0 - 2 % [facility] Eosinophils (Bld) [#/Vol] 0.00 10*3/uL [facility] Eosinophils/100 WBC (Bld) 0 % Low 1 - 4 % [facility] Erythrocyte distribution width (RBC) [Ratio] 14.3 % 11.8 - 14.4 % [facility] Hematocrit (Bld) [Volume fraction] 32.6 % Low 36.3 - 47.1 % [facility] Hemoglobin (Bld) [Mass/Vol] 10.4 g/dL Low 11.9 - 15.1 g/dL [facility] Immature granulocytes (Bld) [#/Vol] 0.00 10*3/uL [facility] Immature granulocytes/100 WBC (Bld) 0 % 0 [facility] Interpretation and review of laboratory results Abnormal [facility] Lymphocytes/100 WBC (Bld) 7 % Low 24 - 44 % [facility] Lymphocytes/100 WBC (Bld) 1.60 % [facility] MCH (RBC) [Entitic mass] 27.9 pg 25.2 - 33.5 pg [facility] MCHC (RBC) [Mass/Vol] 31.9 g/dL 28.4 - 34.8 g/dL [facility] MCV (RBC) [Entitic vol] 87.4 fL 82.6 - 102.9 fL [facility] Monocytes/100 WBC (Bld) 3 % 1 - 7 % [facility] Monocytes/100 WBC (Bld) 0.68 % [facility] Morphology Eliu (Bld) [Interp] Normal [facility] Neutrophils/100 WBC (Bld) 90 % High 36 - 66 % [facility] Nucleated RBC/100 WBC (Bld) [Ratio] 0.0 % 0.0 per 100 WBC [facility] Platelet mean volume (Bld) [Entitic vol] 9.3 fL 8.1 - 13.5 fL [facility] Platelets (Bld) [#/Vol] 322 10*3/uL [facility] RBC (Bld) [#/Vol] 3.73 10*6/uL Low 3.95 - 5.11 m/uL [facility] Segmented neutrophils/100 WBC (Bld) 20.52 % High [facility] WBC other (Bld) [#/Vol] 22.8 High [facility] CBC with Diffon 05-02-2024 Abs. Basophil 0.00 k/uL Normal 0.0-0.2 [facility] Comment on above: Performed By: #### C BC, LACTIC #### [facility] [address] [place] [address] Ripsaw Matcher: Dioni Merlos MD Abs.Imm.Granulocyte 0.00 k/uL Normal 0.00-0.30 [facility] Comment on above: Performed By: #### C BC, LACTIC #### [facility] [address] [place] [address] Ripsaw Matcher: Dioni Merlos MD Abs.Neutrophil (Seg) 20.52 k/uL High 1.8-7.7 [facility] Comment on above: Performed By: #### C BC, LACTIC #### [employer] [address] [place] [address] Ripsaw Matcher: Dioni Merlos MD Basophils/100 WBC (Bld) 0 % Normal 0-2 [facility] Comment on above: Performed By: #### C BC, LACTIC #### [employer] [address] [place] [address] Ripsaw Matcher: Dioni Merlos MD Eosinophils (Bld) [#/Vol] 0.00 10*3/uL Normal 0.0-0.4 [facility] Comment on above: Performed By: #### C BC, LACTIC #### [facility] [place] [address] Ripsaw Matcher: Dioni Merlos MD Eosinophils/100 WBC (Bld) 0 % Low 1-4 [facility] Comment on above: Performed By: #### C BC, LACTIC #### [facility] [address] [place] [address] Ripsaw Matcher: Dioni Merlos MD Immature granulocytes/100 WBC (Bld) 0 % Normal 0 [facility] Comment on above: Performed By: #### C BC, LACTIC #### [facility] [address] [place] [address] Ripsaw Matcher: Dioni Merlos MD Lymphocytes (Bld) [#/Vol] 1.60 10*3/uL Normal 1.0-4.8 [facility] Comment on above: Performed By: #### C BC, LACTIC #### [address] [address] Ripsaw Matcher: Dioni Merlos MD Lymphocytes/100 WBC (Bld) 7 % Low 24-44 [facility] Comment on above: Performed By: #### C BC, LACTIC #### [facility] [address] [place] [address] Ripsaw Matcher: Dioni Merlos MD Monocytes (Bld) [#/Vol] 0.68 10*3/uL Normal 0.1-0.8 [facility] Comment on above: Performed By: #### C BC, LACTIC #### [facility] [address] [place] [address] Ripsaw Matcher: Dioni Merlos MD Monocytes/100 WBC (Bld) 3 % Normal 1-7 [facility] Comment on above: Performed By: #### C BC, LACTIC #### [facility] [address] [place] [address] Ripsaw Matcher: Dioni Merlos MD Morphology Eliu (Bld) [Interp] Normal Normal [facility] Comment on above: Performed By: #### C BC, LACTIC #### [address] [address] Ripsaw Matcher: Dioni Merlos MD Neutrophil (Seg) 90 % High 36-66 [facility] Comment on above: Performed By: #### C BC, LACTIC #### [address] [address] Ripsaw Matcher: Dioni Merlos MD Erythrocyte distribution width (RBC) [Ratio] 14.3 % Normal 11.8-14.4 [facility] Comment on above: Performed By: #### C BC, LACTIC #### [facility] [address] [place] [address] Ripsaw Matcher: Dioni Merlos MD Hematocrit (Bld) [Volume fraction] 32.6 % Low 36.3-47.1 [facility] Comment on above: Performed By: #### C BC, LACTIC #### [address] [address] Ripsaw Matcher: Dioni Merlos MD Hemoglobin (Bld) [Mass/Vol] 10.4 g/dL Low 11.9-15.1 [facility] Comment on above: Performed By: #### C BC, LACTIC #### [address] [address] Ripsaw Matcher: Dioni Merlos MD MCH (RBC) [Entitic mass] 27.9 pg Normal 25.2-33.5 [facility] Comment on above: Performed By: #### C BC, LACTIC #### [address] [address] Ripsaw Matcher: Dioni Merlos MD MCHC (RBC) [Mass/Vol] 31.9 g/dL Normal 28.4-34.8 [facility] Comment on above: Performed By: #### C BC, LACTIC #### [facility] [place] [address] Ripsaw Matcher: Dioni Merlos MD MCV (RBC) [Entitic vol] 87.4 fL Normal 82.6-102.9 [facility] Comment on above: Performed By: #### C BC, LACTIC #### [address] [address] Ripsaw Matcher: Dioni Merlos MD NRBC Automated 0.0 per 100 WBC Normal 0.0 [facility] Comment on above: Performed By: #### C BC, LACTIC #### [address] [address] Ripsaw Matcher: Dioni Merlos MD Platelet mean volume (Bld) [Entitic vol] 9.3 fL Normal 8.1-13.5 [facility] Comment on above: Performed By: #### C BC, LACTIC #### [address] [address] Ripsaw Matcher: Dioni Merlos MD Platelets (Bld) [#/Vol] 322 10*3/uL Normal 138-453 [facility] Comment on above: Performed By: #### C BC, LACTIC #### [address] [address] Ripsaw Matcher: Dioni Merlos MD RBC (Bld) [#/Vol] 3.73 10*6/uL Low 3.95-5.11 [facility] Comment on above: Performed By: #### C BC, LACTIC #### [address] [address] Ripsaw Matcher: Dioni Merlos MD WBC (Bld) [#/Vol] 22.8 10*3/uL High 3.5-11.3 [facility] Comment on above: Performed By: #### C BC, LACTIC #### [facility] [address] [place] [address] Ripsaw Matcher: Dioni Merlos MD CT ABDOMEN PELVIS W IV CONTR Denise 05-02-2024 CT ABDOMEN PELVIS W IV CONTRAST EXAMINATION: CT OF THE ABDOMEN AND PELVIS WITH CONTRAST 05/02/2024 9:43 am TECHNIQUE: CT of the abdomen and pelvis was performed with the administration of intravenous contrast. Multiplanar reformatted images are provided for review. Automated exposure control, iterative reconstruction, and/or weight based adjustment of the mA/kV was utilized to reduce the radiation dose to as low as reasonably achievable. COMPARISON: 05/01/2024 HISTORY: ORDERING SYSTEM PROVIDED HISTORY: chrons flare, pelvic abscess, concern for fistulous connection TECHNOLOGIST PROVIDED HISTORY: chrons flare, pelvic abscess, concern for fistulous connection Decision Support Exception - unselect if not a suspected or confirmed emergency medical condition->Emergency Medical Condition (MA) FINDINGS: Lower chest: The lung bases are clear. EG junction, stomach and duodenal sweep: Unremarkable Liver: Unremarkable Gallbladder: Unremarkable Biliary tree: Unremarkable Pancreas: Unremarkable for patient's age. Spleen: Unremarkable Kidneys and ureters: Unremarkable Adrenal glands: Unremarkable Retroperitoneal structures: Unremarkable Small bowel and colon: Dilated proximal small bowel loops containing contrast with long segment narrowing involving a loop of ileum seen in the mid abdomen with circumferential wall thickening consistent with active inflammation. This is partially surrounded by the multiloculated abscess seen in the right lower abdomen measuring 7.1 by 7.5 cm on image 123. This is contiguous with 2 additional large abscesses seen in the right adnexa measuring 6.3 x 5.4 cm and in the upper pelvis in the midline measuring 5.3 x 4.8 cm. Overall similar to recent prior examination. Prior ileo seek ectomy. There is contrast seen within the small bowel as well as within the rectosigmoid colon without definite fistula seen on today's examination. Fluid seen in the left adnexa surrounding the narrowed sigmoid colon without definite fistula is similar to prior examination. Appendix: Not seen Urinary bladder: Unremarkable Free fluid/air: None Lymph nodes: No enlarged lymph nodes Osseus structures: No destructive lesion Vasculature: No aneurysm Other: None IMPRESSION: 1. Unchanged appearance of active Crohn's disease with complex multiloculated abscess without definite fistula seen on this examination. Partial small bowel obstruction given dilated proximal bowel Interpreted by: Kiko Alba MD Signed by: Kiko Alba MD 05/02/24 Final result Normal [facility] CT Abdomen and Pelvis W erum Amos 05-02-2024 1. Unchanged appearance of active Crohn's disease with complex multiloculated abscess without definite fistula seen on this examination. Partial small bowel obstruction given dilated proximal bowel [facility] RIS CONSOLIDATED EXAMINATION: CT OF THE ABDOMEN AND PELVIS WITH CONTRAST 05/02/2024 9:43 am TECHNIQUE: CT of the abdomen and pelvis was performed with the administration of intravenous contrast. Multiplanar reformatted images are provided for review. Automated exposure control, iterative reconstruction, and/or weight based adjustment of the mA/kV was utilized to reduce the radiation dose to as low as reasonably achievable. COMPARISON: 05/01/2024 HISTORY: ORDERING SYSTEM PROVIDED HISTORY: chrons flare, pelvic abscess, concern for fistulous connection TECHNOLOGIST PROVIDED HISTORY: chrons flare, pelvic abscess, concern for fistulous connection Decision Support Exception - unselect if not a suspected or confirmed emergency medical condition->Emergency Medical Condition (MA) FINDINGS: Lower chest: The lung bases are clear. EG junction, stomach and duodenal sweep: Unremarkable Liver: Unremarkable Gallbladder: Unremarkable Biliary tree: Unremarkable Pancreas: Unremarkable for patient's age. Spleen: Unremarkable Kidneys and ureters: Unremarkable Adrenal glands: Unremarkable Retroperitoneal structures: Unremarkable Small bowel and colon: Dilated proximal small bowel loops containing contrast with long segment narrowing involving a loop of ileum seen in the mid abdomen with circumferential wall thickening consistent with active inflammation. This is partially surrounded by the multiloculated abscess seen in the right lower abdomen measuring 7.1 by 7.5 cm on image 123. This is contiguous with 2 additional large abscesses seen in the right adnexa measuring 6.3 x 5.4 cm and in the upper pelvis in the midline measuring 5.3 x 4.8 cm. Overall similar to recent prior examination. Prior ileo seek ectomy. There is contrast seen within the small bowel as well as within the rectosigmoid colon without definite fistula seen on today's examination. Fluid seen in the left adnexa surrounding the narrowed sigmoid colon without definite fistula is similar to prior examination. Appendix: Not seen Urinary bladder: Unremarkable Free fluid/air: None Lymph nodes: No enlarged lymph nodes Osseus structures: No destructive lesion Vasculature: No aneurysm Other: None [facility] RIS CONSOLIDATED Kiko Alba K, MD - 05/02/2024 EXAMINATION: CT OF THE ABDOMEN AND PELVIS WITH CONTRAST 05/02/2024 9:43 am TECHNIQUE: CT of the abdomen and pelvis was performed with the administration of intravenous contrast. Multiplanar reformatted images are provided for review. Automated exposure control, iterative reconstruction, and/or weight based adjustment of the mA/kV was utilized to reduce the radiation dose to as low as reasonably achievable. COMPARISON: 05/01/2024 HISTORY: ORDERING SYSTEM PROVIDED HISTORY: chrons flare, pelvic abscess, concern for fistulous connection TECHNOLOGIST PROVIDED HISTORY: chrons flare, pelvic abscess, concern for fistulous connection Decision Support Exception - unselect if not a suspected or confirmed emergency medical condition->Emergency Medical Condition (MA) FINDINGS: Lower chest: The lung bases are clear. EG junction, stomach and duodenal sweep: Unremarkable Liver: Unremarkable Gallbladder: Unremarkable Biliary tree: Unremarkable Pancreas: Unremarkable for patient's age. Spleen: Unremarkable Kidneys and ureters: Unremarkable Adrenal glands: Unremarkable Retroperitoneal structures: Unremarkable Small bowel and colon: Dilated proximal small bowel loops containing contrast with long segment narrowing involving a loop of ileum seen in the mid abdomen with circumferential wall thickening consistent with active inflammation. This is partially surrounded by the multiloculated abscess seen in the right lower abdomen measuring 7.1 by 7.5 cm on image 123. This is contiguous with 2 additional large abscesses seen in the right adnexa measuring 6.3 x 5.4 cm and in the upper pelvis in the midline measuring 5.3 x 4.8 cm. Overall similar to recent prior examination. Prior ileo seek ectomy. There is contrast seen within the small bowel as well as within the rectosigmoid colon without definite fistula seen on today's examination. Fluid seen in the left adnexa surrounding the narrowed sigmoid colon without definite fistula is similar to prior examination. Appendix: Not seen Urinary bladder: Unremarkable Free fluid/air: None Lymph nodes: No enlarged lymph nodes Osseus structures: No destructive lesion Vasculature: No aneurysm Other: None IMPRESSION: 1. Unchanged appearance of active Crohn's disease with complex multiloculated abscess without definite fistula seen on this examination. Partial small bowel obstruction given dilated proximal bowel [facility] Radiology Study observation (narrative) [facility] CT Abdomen and Pelvis W cont rast IVOrdered By: Kiko Alba on 05-02-2024 [facility] Work Phone: EKG 12 LeadOrdered By: Rashid Gamez on 05-02-2024 Atrial Rate 116 BPM [facility] Work Phone: P Bertram 85 degrees [facility] Work Phone: P-R Interval 128 ms [facility] Work Phone: Q-T Interval 332 ms [facility] Work Phone: QRS Duration 76 ms [facility] Work Phone: QTc Calculation (Bazett) 461 ms [facility] Work Phone: R Bertram 71 degrees [facility] Work Phone: T Bertram 76 degrees [facility] Work Phone: Ventricular Rate 116 BPM [facility] Work Phone: [facility] Work Phone: EKG 12 Leadon 05-02-2024 Sinus tachycardia Otherwise normal ECG When compared with ECG of 22-NOV-2023 05:17, Vent. rate has increased BY 50 BPM PN STV Rashid Weiss MD - 05/02/2024 Sinus tachycardia Otherwise normal ECG When compared with ECG of 22-NOV-2023 05:17, Vent. rate has increased BY 50 BPM [facility] Hepatic Function Panelon Albumin [Mass/Vol] 2.8 g/dL Low 3.5 - 5.2 g/dL [facility] Albumin/Globulin [Mass ratio] 1.0 {ratio} 1.0 - 2.5 [facility] ALP [Catalytic activity/Vol] 78 U/L 35 - 104 U/L [facility] ALT [Catalytic activity/Vol] 8 U/L Low 10 - 35 U/L [facility] AST [Catalytic activity/Vol] 11 U/L 10 - 35 U/L [facility] Bilirubin [Mass/Vol] 0.7 mg/dL 0.0 - 1.2 mg/dL [facility] Bilirubin.direct [Mass/Vol] 0.4 mg/dL High 0.0 - 0.2 mg/dL [facility] Bilirubin.indirect [Mass/Vol] 0.3 mg/dL 0.0 - 1.0 mg/dL [facility] Globulin (S) [Mass/Vol] 3.0 g/dL [facility] Protein [Mass/Vol] 5.8 g/dL Low 6.6 - 8.7 g/dL [facility] K (Potassium)on 05-02-2024 Potassium [Moles/Vol] 3.5 mmol/L Low 3.7-5.3 [facility] Comment on above: Performed By: #### C BC, LACTIC #### [facility] [address] [place], [place] [id number] Ripsaw Matcher: Dioni Merlos MD Lactic Acidon 05-02-2024 Lactic Acid, Whole Blood 0.8 mmol/L 0.7 - 2.1 mmol/L [facility] Lactic Acid,Whole Bl 0.8 mmol/L Normal 0.7-2.1 [facility] Comment on above: Performed By: #### C RP #### [facility] [address] [place], [place] [id number] Ripsaw Matcher: Dioni Merlos MD Lactic Acid, Whole Blood 0.8 mmol/L 0.7 - 2.1 mmol/L [facility] Lactic Acid,Whole Bl 0.8 mmol/L Normal 0.7-2.1 [facility] Comment on above: Performed By: #### C RP, HCG, LIP, TROPI, CDP, CP #### [facility] [address] [place] [id number] Ripsaw Matcher: Dioni Merlos MD Lactic Acid, Whole Blood 0.7 mmol/L 0.7 - 2.1 mmol/L [facility] Lactic Acid,Whole Bl 0.7 mmol/L Normal 0.7-2.1 [facility] Comment on above: Performed By: #### C RP #### [facility] [address] [place] [address] Ripsaw Matcher: Dioni Merlos MD Liver Profileon 05-02-2024 Albumin [Mass/Vol] 2.8 g/dL Low 3.5-5.2 [facility] Comment on above: Performed By: #### C BC, LACTIC #### [facility] [address] [place] [address] Ripsaw Matcher: Dioni Merlos MD Albumin/Glob Ratio 1.0 Normal 1.0-2.5 [facility] Comment on above: Performed By: #### C BC, LACTIC #### [facility] [address] [place] [address] Ripsaw Matcher: Dioni Merlos MD Alkaline Phos 78 U/L Normal 35-104 [facility] Comment on above: Performed By: #### C BC, LACTIC #### [facility] [address] [place] [address] Ripsaw Matcher: Dioni Merlos MD ALT [Catalytic activity/Vol] 8 U/L Low 10-35 [facility] Comment on above: Performed By: #### C BC, LACTIC #### [facility] [address] [place] [address] Ripsaw Matcher: Dioni Merlos MD AST [Catalytic activity/Vol] 11 U/L Normal 10-35 [facility] Comment on above: Performed By: #### C BC, LACTIC #### [facility] [address] [place] [address] Ripsaw Matcher: Dioni Merlos MD Bilirubin [Mass/Vol] 0.7 mg/dL Normal 0.0-1.2 [facility] Comment on above: Performed By: #### C BC, LACTIC #### [facility] [address] [place] [address] Ripsaw Matcher: Dioni Merlos MD Bilirubin, Indirect 0.3 mg/dL Normal 0.0-1.0 [facility] Comment on above: Performed By: #### C BC, LACTIC #### [facility] [address] [place] [address] Ripsaw Matcher: Dioni Merlos MD Bilirubin.indirect [Mass/Vol] 0.4 mg/dL High 0.0-0.2 [facility] Comment on above: Performed By: #### C BC, LACTIC #### [facility] [address] [place] [address] Ripsaw Matcher: Dioni Merlos MD Globulin (S) [Mass/Vol] 3.0 g/dL Normal [facility] Comment on above: Performed By: #### C BC, LACTIC #### [facility] [address] [place] [address] Ripsaw Matcher: Dioni Merlos MD Protein [Mass/Vol] 5.8 g/dL Low 6.6-8.7 [facility] Comment on above: Performed By: #### C BC, LACTIC #### [facility] [address] [place] [address] Ripsaw Matcher: Dioni Merlos MD Magnesiumon 05-02-2024 Interpretation and review of laboratory results Abnormal [facility] Magnesium [Mass/Vol] 1.5 mg/dL Low 1.6 - 2.6 mg/dL [facility] Magnesium [Mass/Vol] 1.5 mg/dL Low 1.6-2.6 [facility] Comment on above: Performed By: #### C BC, LACTIC #### [facility] [address] [place] [phone] Ripsaw Matcher: Dioni Merlos MD No Panel Informationon 05-02 Interpretation and review of laboratory results Abnormal [facility] PTon 05-02-2024 INR Coag (PPP) [Relative time] 1.2 {INR} Normal [facility] Comment on above: Result Comment: Therapeutic Range: Moderate Anticoagulant Intensity: INR = 2.0-3.0 High Anticoagulant Intensity: INR = 2.5-3.5 Performed By: #### C BC, LACTIC #### [facility] [address] [place], [place] [id number] Ripsaw Matcher: Dioni Merlos MD PT Coag (PPP) [Time] 15.4 s High 11.7-14.9 [facility] Comment on above: Performed By: #### C BC, LACTIC #### [facility] [address] [place], [place] [phone] Ripsaw Matcher: Dioni Merlos MD Potassiumon 05-02-2024 Interpretation and review of laboratory results Abnormal [facility] Potassium [Moles/Vol] 3.5 mmol/L Low 3.7 - 5.3 mmol/L [facility] Protime-INRon 05-02-2024 INR Coag (PPP) [Relative time] 1.2 {INR} [facility] Comment on above: Therapeutic Range: Moderate Anticoagulant Intensity: INR = 2.0-3.0 High Anticoagulant Intensity: INR = 2.5-3.5 Interpretation and review of laboratory results Abnormal [facility] PT Coag (PPP) [Time] 15.4 s High [facility] CBC with Auto Differentialon 05-01-2024 Basophils (Bld) [#/Vol] 0.00 10*3/uL [facility] Basophils/100 WBC (Bld) 0 % 0 - 2 % [facility] Eosinophils (Bld) [#/Vol] 0.00 10*3/uL [facility] Eosinophils/100 WBC (Bld) 0 % Low 1 - 4 % [facility] Erythrocyte distribution width (RBC) [Ratio] 14.6 % High 11.8 - 14.4 % [facility] Hematocrit (Bld) [Volume fraction] 40.1 % 36.3 - 47.1 % [facility] Hemoglobin (Bld) [Mass/Vol] 12.7 g/dL 11.9 - 15.1 g/dL [facility] Immature granulocytes (Bld) [#/Vol] 0.00 10*3/uL [facility] Immature granulocytes/100 WBC (Bld) 0 % 0 [facility] Interpretation and review of laboratory results Abnormal [facility] Lymphocytes/100 WBC (Bld) 10 % Low 24 - 44 % [facility] Lymphocytes/100 WBC (Bld) 2.51 % [facility] MCH (RBC) [Entitic mass] 27.3 pg 25.2 - 33.5 pg [facility] MCHC (RBC) [Mass/Vol] 31.7 g/dL 28.4 - 34.8 g/dL [facility] MCV (RBC) [Entitic vol] 86.2 fL 82.6 - 102.9 fL [facility] Monocytes/100 WBC (Bld) 4 % 1 - 7 % [facility] Monocytes/100 WBC (Bld) 1.00 % High [facility] Morphology Eliu (Bld) [Interp] Normal [facility] Neutrophils/100 WBC (Bld) 86 % High 36 - 66 % [facility] Nucleated RBC/100 WBC (Bld) [Ratio] 0.0 % 0.0 per 100 WBC [facility] Platelet mean volume (Bld) [Entitic vol] 9.7 fL 8.1 - 13.5 fL [facility] Platelets (Bld) [#/Vol] 469 10*3/uL High [facility] RBC (Bld) [#/Vol] 4.65 10*6/uL 3.95 - 5.11 m/uL [facility] Segmented neutrophils/100 WBC (Bld) 21.59 % High [facility] WBC other (Bld) [#/Vol] 25.1 High [facility] Bon [facility] CBC with Diffon 05-01-2024 Abs. Basophil 0.00 k/uL Normal 0.0-0.2 [facility] Comment on above: Performed By: #### C RP, HCG, LIP, TROPI, CDP, CP #### [address] [address] Ripsaw Matcher: Dioni Merlos MD Abs.Imm.Granulocyte 0.00 k/uL Normal 0.00-0.30 [facility] Comment on above: Performed By: #### C RP, HCG, LIP, TROPI, CDP, CP #### [place] [address] Ripsaw Matcher: Dioni Merlos MD Abs.Neutrophil (Seg) 21.59 k/uL High 1.8-7.7 [facility] Comment on above: Performed By: #### C RP, HCG, LIP, TROPI, CDP, CP #### [address] [address] Ripsaw Matcher: Dioni Merlos MD Basophils/100 WBC (Bld) 0 % Normal 0-2 [facility] Comment on above: Performed By: #### C RP, HCG, LIP, TROPI, CDP, CP #### [address] [address] Ripsaw Matcher: Dioni Merlos MD Eosinophils (Bld) [#/Vol] 0.00 10*3/uL Normal 0.0-0.4 [facility] Comment on above: Performed By: #### C RP, HCG, LIP, TROPI, CDP, CP #### [address] [address] Ripsaw Matcher: Dioni Merlos MD Eosinophils/100 WBC (Bld) 0 % Low 1-4 [facility] Comment on above: Performed By: #### C RP, HCG, LIP, TROPI, CDP, CP #### [address] [address] Ripsaw Matcher: Dioni Merlos MD Immature granulocytes/100 WBC (Bld) 0 % Normal 0 [facility] Comment on above: Performed By: #### C RP, HCG, LIP, TROPI, CDP, CP #### [address] [address] Ripsaw Matcher: Dioni Merlos MD Lymphocytes (Bld) [#/Vol] 2.51 10*3/uL Normal 1.0-4.8 [facility] Comment on above: Performed By: #### C RP, HCG, LIP, TROPI, CDP, CP #### [address] [address] Ripsaw Matcher: Dioni Merlos MD Lymphocytes/100 WBC (Bld) 10 % Low 24-44 [facility] Comment on above: Performed By: #### C RP, HCG, LIP, TROPI, CDP, CP #### [address] [address] Ripsaw Matcher: Dioni Merlos MD Monocytes (Bld) [#/Vol] 1.00 10*3/uL High 0.1-0.8 [facility] Comment on above: Performed By: #### C RP, HCG, LIP, TROPI, CDP, CP #### [address] [address] Ripsaw Matcher: Dioni Merlos MD Monocytes/100 WBC (Bld) 4 % Normal 1-7 [facility] Comment on above: Performed By: #### C RP, HCG, LIP, TROPI, CDP, CP #### [address] [address] Ripsaw Matcher: Dioni Merlos MD Morphology Eliu (Bld) [Interp] Normal Normal [facility] Comment on above: Performed By: #### C RP, HCG, LIP, TROPI, CDP, CP #### [address] [address] Ripsaw Matcher: Dioni Merlos MD Neutrophil (Seg) 86 % High 36-66 [facility] Comment on above: Performed By: #### C RP, HCG, LIP, TROPI, CDP, CP #### [address] [address] Ripsaw Matcher: Dioni Merlos MD Erythrocyte distribution width (RBC) [Ratio] 14.6 % High 11.8-14.4 [facility] Comment on above: Performed By: #### C RP, HCG, LIP, TROPI, CDP, CP #### [address] [address] Ripsaw Matcher: Dioni Merlos MD Hematocrit (Bld) [Volume fraction] 40.1 % Normal 36.3-47.1 [facility] Comment on above: Performed By: #### C RP, HCG, LIP, TROPI, CDP, CP #### [address] [address] Ripsaw Matcher: Dioni Merlos MD Hemoglobin (Bld) [Mass/Vol] 12.7 g/dL Normal 11.9-15.1 [facility] Comment on above: Performed By: #### C RP, HCG, LIP, TROPI, CDP, CP #### [address] [address] Ripsaw Matcher: Dioni Merlos MD MCH (RBC) [Entitic mass] 27.3 pg Normal 25.2-33.5 [facility] Comment on above: Performed By: #### C RP, HCG, LIP, TROPI, CDP, CP #### [address] [address] Ripsaw Matcher: Dioni Merlos MD MCHC (RBC) [Mass/Vol] 31.7 g/dL Normal 28.4-34.8 [facility] Comment on above: Performed By: #### C RP, HCG, LIP, TROPI, CDP, CP #### [address] [address] Ripsaw Matcher: Dioni Merlos MD MCV (RBC) [Entitic vol] 86.2 fL Normal 82.6-102.9 [facility] Comment on above: Performed By: #### C RP, HCG, LIP, TROPI, CDP, CP #### [address] [address] Ripsaw Matcher: Dioni Merlos MD NRBC Automated 0.0 per 100 WBC Normal 0.0 [facility] Comment on above: Performed By: #### C RP, HCG, LIP, TROPI, CDP, CP #### [address] [address] Ripsaw Matcher: Dioni Merlos MD Platelet mean volume (Bld) [Entitic vol] 9.7 fL Normal 8.1-13.5 [facility] Comment on above: Performed By: #### C RP, HCG, LIP, TROPI, CDP, CP #### [address] [address] Ripsaw Matcher: Dioni Merlos MD Platelets (Bld) [#/Vol] 469 10*3/uL High 138-453 [facility] Comment on above: Performed By: #### C RP, HCG, LIP, TROPI, CDP, CP #### [address] [address] Ripsaw Matcher: Dioni Merlos MD RBC (Bld) [#/Vol] 4.65 10*6/uL Normal 3.95-5.11 [facility] Comment on above: Performed By: #### C RP, HCG, LIP, TROPI, CDP, CP #### [address] [place] [address] Ripsaw Matcher: Dioni Merlos MD WBC (Bld) [#/Vol] 25.1 10*3/uL High 3.5-11.3 [facility] Comment on above: Performed By: #### C RP, HCG, LIP, TROPI, CDP, CP #### [facility] [address] [place], [place] [id number] Ripsaw Matcher: Dioni Merlos MD CT ABDOMEN PELVIS W IV CONTR Denise 05-01-2024 CT ABDOMEN PELVIS W IV CONTRAST EXAMINATION: CT OF THE ABDOMEN AND PELVIS WITH CONTRAST 05/01/2024 3:27 pm TECHNIQUE: CT of the abdomen and pelvis was performed with the administration of intravenous contrast. Multiplanar reformatted images are provided for review. Automated exposure control, iterative reconstruction, and/or weight based adjustment of the mA/kV was utilized to reduce the radiation dose to as low as reasonably achievable. COMPARISON: CT exams 01/25/2024 and 11/22/2023 HISTORY: ORDERING SYSTEM PROVIDED HISTORY: Hx of crohns, severe abdominal pain TECHNOLOGIST PROVIDED HISTORY: Hx of crohns, severe abdominal pain Decision Support Exception - unselect if not a suspected or confirmed emergency medical condition->Emergency Medical Condition (MA) FINDINGS: Lower Chest: No acute findings. Organs: Findings compatible with hepatic steatosis. No inflammatory change identified in the gallbladder fossa. The pancreas, spleen, adrenals and kidneys reveal no acute findings. GI/Bowel: Relatively diffuse bowel inflammation involving long segments of small bowel in the pelvis, distal colon and rectum are noted. There is somewhat ill-defined fluid and clustered small bowel in the central lower abdomen/pelvis on axial image 113 has the appearance of an inflammatory mass associated with active Crohn's disease. Suspected rim enhancing free fluid in the pelvis and suspected fistula tract versus narrowed segment of colon on axial image 135. A rim enhancing pocket of fluid measuring up to 5.2 x 4.2 cm on axial image 125 is a presumed abscess versus patulous small bowel loop. There is also a prominent fluid density in the right pelvis on axial image 136 that is unclear whether this is in additional fluid collection or prominent adnexal cyst. No evidence for bowel obstruction. No free air. Postoperative findings in the proximal colon again noted. Pelvis: Fluid and inflammatory change, as described above. No acute findings identified in the bladder. Peritoneum/Retroperi toneum: No free air. Rim enhancing fluid in the lower abdomen and pelvis, as above. Bones/Soft Tissues: No abnormality identified. *Unless otherwise specified, incidental findings do not require dedicated imaging follow-up. IMPRESSION: Findings compatible with active Crohn's disease with complex fluid collection associated with inflamed small bowel in the lower abdomen and pelvis and possible abscess, as described. Possible fistula versus focal area of narrowing in the sigmoid colon. No evidence for bowel obstruction. These findings could be further delineated with follow-up imaging utilizing oral contrast. Prominent cystic structure in the right pelvis may represent an adnexal cyst versus loculated fluid collection, for which attention to on follow-up imaging is recommended. Interpreted by: Shayna Quiles MD Signed by: Shayna Quiles MD 05/01/24 Final result Normal [facility] CT Abdomen and Pelvis W cont rast Bette 05-01-2024 Findings compatible with active Crohn's disease with complex fluid collection associated with inflamed small bowel in the lower abdomen and pelvis and possible abscess, as described. Possible fistula versus focal area of narrowing in the sigmoid colon. No evidence for bowel obstruction. These findings could be further delineated with follow-up imaging utilizing oral contrast. Prominent cystic structure in the right pelvis may represent an adnexal cyst versus loculated fluid collection, for which attention to on follow-up imaging is recommended. [facility] RIS CONSOLIDATED EXAMINATION: CT OF THE ABDOMEN AND PELVIS WITH CONTRAST 05/01/2024 3:27 pm TECHNIQUE: CT of the abdomen and pelvis was performed with the administration of intravenous contrast. Multiplanar reformatted images are provided for review. Automated exposure control, iterative reconstruction, and/or weight based adjustment of the mA/kV was utilized to reduce the radiation dose to as low as reasonably achievable. COMPARISON: CT exams 01/25/2024 and 11/22/2023 HISTORY: ORDERING SYSTEM PROVIDED HISTORY: Hx of crohns, severe abdominal pain TECHNOLOGIST PROVIDED HISTORY: Hx of crohns, severe abdominal pain Decision Support Exception - unselect if not a suspected or confirmed emergency medical condition->Emergency Medical Condition (MA) FINDINGS: Lower Chest: No acute findings. Organs: Findings compatible with hepatic steatosis. No inflammatory change identified in the gallbladder fossa. The pancreas, spleen, adrenals and kidneys reveal no acute findings. GI/Bowel: Relatively diffuse bowel inflammation involving long segments of small bowel in the pelvis, distal colon and rectum are noted. There is somewhat ill-defined fluid and clustered small bowel in the central lower abdomen/pelvis on axial image 113 has the appearance of an inflammatory mass associated with active Crohn's disease. Suspected rim enhancing free fluid in the pelvis and suspected fistula tract versus narrowed segment of colon on axial image 135. A rim enhancing pocket of fluid measuring up to 5.2 x 4.2 cm on axial image 125 is a presumed abscess versus patulous small bowel loop. There is also a prominent fluid density in the right pelvis on axial image 136 that is unclear whether this is in additional fluid collection or prominent adnexal cyst. No evidence for bowel obstruction. No free air. Postoperative findings in the proximal colon again noted. Pelvis: Fluid and inflammatory change, as described above. No acute findings identified in the bladder. Peritoneum/Retroperi toneum: No free air. Rim enhancing fluid in the lower abdomen and pelvis, as above. Bones/Soft Tissues: No abnormality identified. *Unless otherwise specified, incidental findings do not require dedicated imaging follow-up. [facility] RIS CONSOLIDATED Shayna Quiles MD - 05/01/2024 EXAMINATION: CT OF THE ABDOMEN AND PELVIS WITH CONTRAST 05/01/2024 3:27 pm TECHNIQUE: CT of the abdomen and pelvis was performed with the administration of intravenous contrast. Multiplanar reformatted images are provided for review. Automated exposure control, iterative reconstruction, and/or weight based adjustment of the mA/kV was utilized to reduce the radiation dose to as low as reasonably achievable. COMPARISON: CT exams 01/25/2024 and 11/22/2023 HISTORY: ORDERING SYSTEM PROVIDED HISTORY: Hx of crohns, severe abdominal pain TECHNOLOGIST PROVIDED HISTORY: Hx of crohns, severe abdominal pain Decision Support Exception - unselect if not a suspected or confirmed emergency medical condition->Emergency Medical Condition (MA) FINDINGS: Lower Chest: No acute findings. Organs: Findings compatible with hepatic steatosis. No inflammatory change identified in the gallbladder fossa. The pancreas, spleen, adrenals and kidneys reveal no acute findings. GI/Bowel: Relatively diffuse bowel inflammation involving long segments of small bowel in the pelvis, distal colon and rectum are noted. There is somewhat ill-defined fluid and clustered small bowel in the central lower abdomen/pelvis on axial image 113 has the appearance of an inflammatory mass associated with active Crohn's disease. Suspected rim enhancing free fluid in the pelvis and suspected fistula tract versus narrowed segment of colon on axial image 135. A rim enhancing pocket of fluid measuring up to 5.2 x 4.2 cm on axial image 125 is a presumed abscess versus patulous small bowel loop. There is also a prominent fluid density in the right pelvis on axial image 136 that is unclear whether this is in additional fluid collection or prominent adnexal cyst. No evidence for bowel obstruction. No free air. Postoperative findings in the proximal colon again noted. Pelvis: Fluid and inflammatory change, as described above. No acute findings identified in the bladder. Peritoneum/Retroperi toneum: No free air. Rim enhancing fluid in the lower abdomen and pelvis, as above. Bones/Soft Tissues: No abnormality identified. *Unless otherwise specified, incidental findings do not require dedicated imaging follow-up. IMPRESSION: Findings compatible with active Crohn's disease with complex fluid collection associated with inflamed small bowel in the lower abdomen and pelvis and possible abscess, as described. Possible fistula versus focal area of narrowing in the sigmoid colon. No evidence for bowel obstruction. These findings could be further delineated with follow-up imaging utilizing oral contrast. Prominent cystic structure in the right pelvis may represent an adnexal cyst versus loculated fluid collection, for which attention to on follow-up imaging is recommended. [facility] Radiology Study observation (narrative) [facility] CT Abdomen and Pelvis W cont rast IVOrdered By: Shayna Quiles on 05-01-2024 [facility] Work Phone: Comp Metabolic Profon 2023 Albumin [Mass/Vol] 3.7 g/dL Normal 3.5-5.2 [facility] Comment on above: Performed By: #### C RP, HCG, LIP, TROPI, CDP, CP #### [facility] [address] [place], [place] [id number] Ripsaw Matcher: Dioni Merlos MD Albumin/Glob Ratio 1.0 Normal 1.0-2.5 [facility] Comment on above: Performed By: #### C RP, HCG, LIP, TROPI, CDP, CP #### [address] [address] Ripsaw Matcher: iDoni Merlos MD Alkaline Phos 117 U/L High 35-104 [facility] Comment on above: Performed By: #### C RP, HCG, LIP, TROPI, CDP, CP #### [address] [address] Ripsaw Matcher: Dioni Merlos MD ALT [Catalytic activity/Vol] 14 U/L Normal 10-35 [facility] Comment on above: Performed By: #### C RP, HCG, LIP, TROPI, CDP, CP #### [address] [address] Ripsaw Matcher: Dioni Merlos MD Anion gap [Moles/Vol] 16 mmol/L Normal 9-16 [facility] Comment on above: Performed By: #### C RP, HCG, LIP, TROPI, CDP, CP #### [address] [address] Ripsaw Matcher: Dioni Merlos MD AST [Catalytic activity/Vol] 19 U/L Normal 10-35 [facility] Comment on above: Performed By: #### C RP, HCG, LIP, TROPI, CDP, CP #### [address] [address] Ripsaw Matcher: Dioni Merlos MD Bilirubin [Mass/Vol] 0.5 mg/dL Normal 0.00-1.20 [facility] Comment on above: Performed By: #### C RP, HCG, LIP, TROPI, CDP, CP #### [address] [address] Ripsaw Matcher: Dioni Merlos MD Calcium [Mass/Vol] 9.3 mg/dL Normal 8.6-10.4 [facility] Comment on above: Performed By: #### C RP, HCG, LIP, TROPI, CDP, CP #### [address] [place] [address] Ripsaw Matcher: Dioni Merlos MD Chloride [Moles/Vol] 94 mmol/L Low 98-107 [facility] Comment on above: Performed By: #### C RP, HCG, LIP, TROPI, CDP, CP #### [address] [address] Ripsaw Matcher: Dioni Merlos MD CO2 [Moles/Vol] 26 mmol/L Normal 20-31 [facility] Comment on above: Performed By: #### C RP, HCG, LIP, TROPI, CDP, CP #### [address] [address] Ripsaw Matcher: Dioni Merlos MD Creatinine [Mass/Vol] 0.7 mg/dL Normal 0.50-0.90 [facility] Comment on above: Performed By: #### C RP, HCG, LIP, TROPI, CDP, CP #### [address] [address] Ripsaw Matcher: Dioni Merlos MD GFR/1.73 sq M.predicted among non-blacks MDRD (S/P/Bld) [Vol rate/Area] mL/min/{1.73_m2} Normal >60 [facility] Comment on above: Result Comment: These results are not intended for use in patients <18 years of age. eGFR results are calculated without a race factor using the 2020 CKD-EPI equation. Careful clinical correlation is recommended, particularly when comparing to results calculated using previous equations. The CKD-EPI equation is less accurate in patients with extremes of muscle mass, extra-renal metabolism of creatine, excessive creatine ingestion, or following therapy that affects renal tubular secretion. Performed By: #### C RP, HCG, LIP, TROPI, CDP, CP #### [address] [address] Ripsaw Matcher: Dioni Merlos MD Glucose [Mass/Vol] 129 mg/dL High 74-99 [facility] Comment on above: Performed By: #### C RP, HCG, LIP, TROPI, CDP, CP #### [facility] [address] [place] [address] Ripsaw Matcher: Dioni Merlos MD Potassium [Moles/Vol] 3.0 mmol/L Low 3.7-5.3 [facility] Comment on above: Result Comment: SPEC IMEN SLIGHTLY HEMOLYZED, RESULTS MAY BE ADVERSELY AFFECTED. Performed By: #### C RP, HCG, LIP, TROPI, CDP, CP #### [facility] [address] [place] [address] Ripsaw Matcher: Dioni Merlos MD Protein [Mass/Vol] 7.7 g/dL Normal 6.6-8.7 [facility] Comment on above: Performed By: #### C RP, HCG, LIP, TROPI, CDP, CP #### [facility] [address] [place] [address] Ripsaw Matcher: Dioni Merlos MD Sodium [Moles/Vol] 136 mmol/L Normal 136-145 [facility] Comment on above: Performed By: #### C RP, HCG, LIP, TROPI, CDP, CP #### [facility] [address] [place] [address] Ripsaw Matcher: Dioni Merlos MD Urea nitrogen [Mass/Vol] 3 mg/dL Low 6-20 [facility] Comment on above: Performed By: #### C RP, HCG, LIP, TROPI, CDP, CP #### [facility] [address] [place] [address] Ripsaw Matcher: Dioni Merlos MD Comprehensive Metabolic [facility]ane [facility] 05-01-2024 Albumin [Mass/Vol] 3.7 g/dL 3.5 - 5.2 g/dL [facility] Albumin/Globulin [Mass ratio] 1.0 {ratio} 1.0 - 2.5 [facility] ALP [Catalytic activity/Vol] 117 U/L High 35 - 104 U/L [facility] ALT [Catalytic activity/Vol] 14 U/L 10 - 35 U/L [facility] Anion gap [Moles/Vol] 16 mmol/L 9 - 16 mmol/L [facility] AST [Catalytic activity/Vol] 19 U/L 10 - 35 U/L [facility] Bilirubin [Mass/Vol] 0.5 mg/dL 0.00 - 1.20 mg/ dL [facility] Calcium [Mass/Vol] 9.3 mg/dL 8.6 - 10.4 mg/dL [facility] Chloride [Moles/Vol] 94 mmol/L Low 98 - 107 mmol/L [facility] CO2 [Moles/Vol] 26 mmol/L 20 - 31 mmol/L [facility] Creatinine [Mass/Vol] 0.7 mg/dL 0.50 - 0.90 mg/dL [facility] Est, Glom Filt Rate - PINF [facility] Comment on above: These results are not intended for use in patients <18 years of age. eGFR results are calculated without a race factor using the 2020 CKD-EPI equation. Careful clinical correlation is recommended, particularly when comparing to results calculated using previous equations. The CKD-EPI equation is less accurate in patients with extremes of muscle mass, extra-renal metabolism of creatine, excessive creatine ingestion, or following therapy that affects renal tubular secretion. Glucose [Mass/Vol] 129 mg/dL High 74 - 99 mg/dL [facility] Interpretation and review of laboratory results Abnormal [facility] Potassium [Moles/Vol] 3.0 mmol/L Low 3.7 - 5.3 mmol/L [facility] Comment on above: SPECIMEN SLIGHTLY HE MOLYZED, RESULTS MAY BE ADVERSELY AFFECTED. Protein [Mass/Vol] 7.7 g/dL 6.6 - 8.7 g/dL [facility] Sodium [Moles/Vol] 136 mmol/L 136 - 145 mmol/L [facility] Urea nitrogen [Mass/Vol] 3 mg/dL Low 6 - 20 mg/dL [facility] HCG Qualitative, Serumon HCG ( test) Ql Negative NEGATIVE [facility] Comment on above: Specimens with hCG l evels near the threshold of the test (25 mIU/mL) may give a negative or indeterminate result. In such cases, another test should be performed with a new specimen in 48-72 hours. If early is suspected clinically in this setting, correlation with quantitative serum b-hCG level is suggested. [facility] has confirmed the use of plasma for this test. This has not been cleared or approved by the U.S. Food and Drug Administration. The FDA has determined that such clearance is not necessary. [facility] HCG Screen, Bloodon 05-01-20 24 HCG Screen, Blood Negative Normal NEG [facility] Comment on above: Result Comment: Spec imens with hCG levels near the threshold of the test (25 mIU/mL) may give a negative or indeterminate result. In such cases, another test should be performed with a new specimen in 48-72 hours. If early is suspected clinically in this setting, correlation with quantitative serum b-hCG level is suggested. [facility] has confirmed the use of plasma for this test. This has not been cleared or approved by the U.S. Food and Drug Administration. The FDA has determined that such clearance is not necessary. Performed By: #### C RP, HCG, LIP, TROPI, CDP, CP #### [facility] [place] [address] Ripsaw Matcher: Dioni Merlos MD Lactic Acidon 05-01-2024 Lactic Acid, Whole Blood 0.9 mmol/L 0.7 - 2.1 mmol/L [facility] Lactic Acid,Whole Bl 0.9 mmol/L Normal 0.7-2.1 [facility] Comment on above: Performed By: #### L ACTIC #### [facility] [place] [address] Ripsaw Matcher: Dioni Merlos MD Interpretation and review of laboratory results Abnormal [facility] Lactic Acid, Whole Blood 2.4 mmol/L High 0.7 - 2.1 mmol/L [facility] Lactic Acid,Whole Bl 2.4 mmol/L High 0.7-2.1 [facility] Comment on above: Performed By: #### C RP, HCG, LIP, TROPI, CDP, CP #### [facility] [address] [place] [id number] Ripsaw Matcher: Dioni Merlos MD Lipaseon 05-01-2024 Lipase [Catalytic activity/Vol] 20 U/L 13 - 60 U/L [facility] Lipase [Catalytic activity/Vol] 20 U/L Normal 13-60 [facility] Comment on above: Performed By: #### C RP, HCG, LIP, TROPI, CDP, CP #### [facility] [address] [place] [id number] Ripsaw Matcher: Dioni Merlos MD Microscopic Urinalysison Bacteria LM Ql (Urine sed) None None [facility] Casts LM.LPF (Urine sed) [#/Area] None Reference range defined for non-centrifuged specimen. [facility] Epithelial cells LM.HPF (Urine sed) [#/Area] 5 TO 10 [facility] RBC LM.HPF (Urine sed) [#/Area] 2 TO 5 [facility] Comment on above: Reference range defi german for non-centrifuged specimen. WBC LM.HPF (Urine sed) [#/Area] 5 TO 10 [facility] No Panel Informationon 05-01 [facility] UA w/Reflex Cultureon 2023 Bilirubin, SemiQt,Ur Negative Normal NEG [facility] Comment on above: Performed By: #### C RP, HCG, LIP, TROPI, CDP, CP #### [facility] [address] [place] [address] Ripsaw Matcher: Dioni Merlos MD Blood, Urine TRACE Abnormal NEG [facility] Comment on above: Performed By: #### C RP, HCG, LIP, TROPI, CDP, CP #### [facility] [address] [place] [address] Ripsaw Matcher: Dioni Merlos MD Clarity (U) Clear Normal CLEAR [facility] Comment on above: Performed By: #### C RP, HCG, LIP, TROPI, CDP, CP #### [address] [address] Ripsaw Matcher: Dioni Merlos MD Color (U) Yellow Normal YEL [facility] Comment on above: Performed By: #### C RP, HCG, LIP, TROPI, CDP, CP #### [address] [address] Ripsaw Matcher: Dioni Merlos MD Glucose Ql (U) Negative Normal NEG [facility] Comment on above: Performed By: #### C RP, HCG, LIP, TROPI, CDP, CP #### [address] [address] Ripsaw Matcher: Dioni Merlos MD Ketones Ql (U) Negative Normal NEG [facility] Comment on above: Performed By: #### C RP, HCG, LIP, TROPI, CDP, CP #### [address] [address] Ripsaw Matcher: Dioni Merlos MD Leukocyte esterase Test strip Ql (U) SMALL Abnormal NEG [facility] Comment on above: Performed By: #### C RP, HCG, LIP, TROPI, CDP, CP #### [address] [address] Ripsaw Matcher: Dioni Merlos MD Nitrite,Ur Negative Normal NEG [facility] Comment on above: Performed By: #### C RP, HCG, LIP, TROPI, CDP, CP #### [address] [address] Ripsaw Matcher: Dioni Merlos MD PH,Ur 6.5 Normal 5.0-8.0 [facility] Comment on above: Performed By: #### C RP, HCG, LIP, TROPI, CDP, CP #### [facility] [place] [address] Ripsaw Matcher: Dioni Merlos MD Protein Ql (U) Negative Normal NEG [facility] Comment on above: Performed By: #### C RP, HCG, LIP, TROPI, CDP, CP #### [facility] [address] [place] [address] Ripsaw Matcher: Dioni Merlos MD Spec. [place],Ur 1.065 High 1.005-1.030 [facility] Comment on above: Performed By: #### C RP, HCG, LIP, TROPI, CDP, CP #### [facility] [address] [place] [address] Ripsaw Matcher: Dioni Merlos MD Urobilinogen,Ur Normal Normal 0.0-1.0 [facility] Comment on above: Performed By: #### C RP, HCG, LIP, TROPI, CDP, CP #### [facility] [address] [place] [address] Ripsaw Matcher: Dioni Merlos MD US DUP ABD PEL RETRO SCROT L IMITEDon 05-01-2024 US DUP ABD PEL RETRO SCROT LIMITED EXAMINATION: PELVIC ULTRASOUND 05/01/2024 TECHNIQUE: Transvaginal pelvic ultrasound was performed. COMPARISON: None . 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 0.7 cm Right Ovary: 5.2 x 5.5 x 7.0 cm Left Ovary: 2.0 x 2.1 x 4.4 cm Ultrasound Findings: Uterus: Uterus demonstrates normal myometrial echotexture. Endometrial stripe: Endometrial stripe is within normal limits. Right Ovary: There is a 5.4 cm anechoic cystic structure without complex feature or associated increased color Doppler flow. Left Ovary: Left ovary is within normal limits. Free Fluid: No evidence of free fluid. IMPRESSION: 1. Right ovarian 5.5 cm simple cystic structure most compatible with dominant follicle. 2. Otherwise, unremarkable pelvic ultrasound. RECOMMENDATIONS: Pathology: Right ovarian probable benign cyst measuring 5.4 cm.Recommend follow-up pelvic ultrasound in 3-6 months. Interpreted by: Cristóbal Qiu MD Preliminary result Normal [facility] US NON OB TRANSVAGINALon US NON OB TRANSVAGINAL EXAMINATION: PELVIC ULTRASOUND 05/01/2024 TECHNIQUE: Transvaginal pelvic ultrasound was performed. COMPARISON: None. 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 0.7 cm Right Ovary:5.2 x 5.5 x 7.0 cm Left Ovary: 2.0 x 2.1 x 4.4 cm Ultrasound Findings: Uterus: Uterus demonstrates normal myometrial echotexture. Endometrial stripe: Endometrial stripe is within normal limits. Right Ovary: There is a 5.4 cm anechoic cystic structure without complex feature or associated increased color Doppler flow. Left Ovary: Left ovary is within normal limits. Free Fluid: No evidence of free fluid. IMPRESSION: 1. Right ovarian 5.5 cm simple cystic structure most compatible with dominant follicle. 2. Otherwise, unremarkable pelvic ultrasound. RECOMMENDATIONS: Pathology: Right ovarian probable benign cyst measuring 5.4 cm.Recommend follow-up pelvic ultrasound in 3-6 months. Interpreted by: Cristóbal Qiu MD Signed by: Cristóbal Qiu MD 05/01/24 Final result Normal [facility] US Pelvis transvaginalon 1. Right ovarian 5.5 cm simple cystic structure most compatible with dominant follicle. 2. Otherwise, unremarkable pelvic ultrasound. RECOMMENDATIONS: Pathology: Right ovarian probable benign cyst measuring 5.4 cm.Recommend follow-up pelvic ultrasound in 3-6 months. [facility] RIS CONSOLIDATED EXAMINATION: PELVIC ULTRASOUND 05/01/2024 TECHNIQUE: Transvaginal pelvic ultrasound was performed. COMPARISON: None. 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 0.7 cm Right Ovary:5.2 x 5.5 x 7.0 cm Left Ovary: 2.0 x 2.1 x 4.4 cm Ultrasound Findings: Uterus: Uterus demonstrates normal myometrial echotexture. Endometrial stripe: Endometrial stripe is within normal limits. Right Ovary: There is a 5.4 cm anechoic cystic structure without complex feature or associated increased color Doppler flow. Left Ovary: Left ovary is within normal limits. Free Fluid: No evidence of free fluid. PN RIS CONSOLIDATED Cristóbal Qiu MD - 05/01/2024 EXAMINATION: PELVIC ULTRASOUND 05/01/2024 TECHNIQUE: Transvaginal pelvic ultrasound was performed. COMPARISON: None. 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 0.7 cm Right Ovary:5.2 x 5.5 x 7.0 cm Left Ovary: 2.0 x 2.1 x 4.4 cm Ultrasound Findings: Uterus: Uterus demonstrates normal myometrial echotexture. Endometrial stripe: Endometrial stripe is within normal limits. Right Ovary: There is a 5.4 cm anechoic cystic structure without complex feature or associated increased color Doppler flow. Left Ovary: Left ovary is within normal limits. Free Fluid: No evidence of free fluid. IMPRESSION: 1. Right ovarian 5.5 cm simple cystic structure most compatible with dominant follicle. 2. Otherwise, unremarkable pelvic ultrasound. RECOMMENDATIONS: Pathology: Right ovarian probable benign cyst measuring 5.4 cm.Recommend follow-up pelvic ultrasound in 3-6 months. [facility] Urinalysis with Reflex to Cu ltureon 05-01-2024 Bilirubin Ql (U) Negative NEGATIVE [facility] [employer] Clarity (U) Clear Clear [facility] Color (U) Yellow [facility] Glucose Test strip (U) [Mass/Vol] Negative NEGATIVE mg/dL [employer] [facility] Hemoglobin Auto test strip Ql (U) TRACE Abnormal NEGATIVE [facility] Interpretation and review of laboratory results Abnormal [facility] Ketones (U) [Mass/Vol] Negative NEGATIVE mg/dL [facility] Leukocyte esterase Test strip Ql (U) SMALL Abnormal NEGATIVE [facility] Nitrite Ql (U) Negative NEGATIVE [facility] pH (U) 6.5 [pH] 5.0 - 8.0 [facility] Protein (U) [Mass/Vol] Negative NEGATIVE mg/dL [facility] Specific gravity (U) [Rel density] 1.065 High 1.005 - 1.030 [facility] Urobilinogen Qn (U) Normal 0.0 - 1.0 EU/dL [facility] Urinalysis,Microon 4 Bacteria None Normal NONE [facility] Comment on above: Performed By: #### C RP, HCG, LIP, TROPI, CDP, CP #### [facility] [address] [place] [address] Ripsaw Matcher: Dioni Merlos MD Casts None Normal 0-8 [facility] Comment on above: Result Comment: Refe rence range defined for non-centrifuged specimen. Performed By: #### C RP, HCG, LIP, TROPI, CDP, CP #### [facility] [address] [place] [address] Ripsaw Matcher: Dioni Merlos MD Epithelial cells LM Ql (Urine sed) 5 TO 10 Normal 0-5 [facility] Comment on above: Performed By: #### C RP, HCG, LIP, TROPI, CDP, CP #### [facility] [address] [place] [address] Ripsaw Matcher: Dioni Merlos MD Urine RBC's 2 TO 5 Normal 0-4 [facility] Comment on above: Result Comment: Refe rence range defined for non-centrifuged specimen. Performed By: #### C RP, HCG, LIP, TROPI, CDP, CP #### [employer] [facility] [address] [place] [address] Ripsaw Matcher: Dioni Merlos MD Urine WBC's 5 TO 10 Normal 0-5 [facility] Comment on above: Performed By: #### C RP, HCG, LIP, TROPI, CDP, CP #### [facility] [address] [place], [place] [id number] Ripsaw Matcher: Dioni Merlos MD XR CHEST 2 VWSon 04-22-2024 XR CHEST 2 VWS XR CHEST 2 VWS PA and lateral chest, 2 views, dated 08/23/2023 at 4:44 PM INDICATION: Severe cough, fever. FINDINGS: No comparisons available. No airspace disease or edema. No effusions. The heart and mediastinal structures are within normal limits. IMPRESSION: No acute cardiopulmonary abnormality seen. Finalized by Myron Varela MD on 04/22/2024 4:47 PM Normal [facility] XR Chest PA and Lateralon PA and lateral chest, 2 views, dated 08/23/2023 at 4:44 PM INDICATION: Severe cough, fever. FINDINGS: No comparisons available. No airspace disease or edema. No effusions. The heart and mediastinal structures are within normal limits. IMPRESSION: No acute cardiopulmonary abnormality seen. Finalized by Myron Varela MD on 04/22/2024 4:47 PM [facility] Myron Varela MD - 04/22/2024 PA and lateral chest, 2 views, dated 08/23/2023 at 4:44 PM INDICATION: Severe cough, fever. FINDINGS: No comparisons available. No airspace disease or edema. No effusions. The heart and mediastinal structures are within normal limits. IMPRESSION: No acute cardiopulmonary abnormality seen. Finalized by Myron Varela MD on 04/22/2024 4:47 PM [facility] Radiology Study observation (narrative) [facility] XR Chest PA and LateralOrder ed By: Myron Varela on 04-22-2024 [facility] Work Phone: Calprotectin, Fecalon 2023 Calprotectin, Fecal 697 ug/g High <=49 [facility] Comment on above: Result Comment: (NOT E) REFERENCE INTERVAL: Calprotectin, Fecal by Immunoassay Less than 50 ug/g.........Normal 50-120 ug/g...............Borderline elevated, test should be re-evaluated in 4-6 weeks. 121 ug/g or greater.......Elevated Performed By: [facility] [address] [place] [address] Schedule Checker: Hugo Ramsey MD, PhD CLIA Number: [id number] Performed By: #### C BC, LACTIC #### [facility] [address] [place] [address] [id number] Ripsaw Matcher: Dioni Merlos MD QuantiFERON TBon 01-29-2024 Quanti [place] minus NIL 9.95 IU/mL Normal [facility] Comment on above: Performed By: #### C RP #### [facility] [address] [place] [address] Ripsaw Matcher: Dioni Merlos MD Quanti TB Gold Plus Negative Normal Negative [facility] Comment on above: Result Comment: (NOT E) INTERPRETIVE INFORMATION:Quantiferon TB Gold Plus Interferon gamma release is measured for specimens from each of the four collection tubes. A qualitative result (Negative, Positive, or Indeterminate) is based on interpretation of the four values: NIL, MITOGEN minus NIL (MITOGEN-NIL), TB1 minus NIL (TB1-NIL), and TB2 minus NIL (TB2-NIL). The NIL value represents nonspecific reactivity produced by the patient specimen. The MITOGEN-NIL value serves as the positive control for the patient specimen, demonstrating successful lymphocyte activity. The TB1-NIL tube specifically detects CD4+ lymphocyte reactivity, specifically stimulated by the TB1 antigens. The TB2-NIL tube detects both CD4+ and CD8+ lymphocyte reactivity, stimulated by TB2 antigens. An overall Negative result does not completely rule out TB infection. A false-positive result in the absence of other clinical evidence of TB infection is not uncommon. Refer to: Updated Guidelines for Using Interferon Gamma Release Assays to Detect Mycobacterium tuberculosis Infection -- [place], 2010 (http://www.cdc.gov/mmwr/preview/mmwrhtml/zw8298b1.htm), for more information concerning test performance in low-prevalence populations and use in occupational screening. Performed By: [facility] [address] [place] [id number] Schedule Checker: Hugo Ramsey MD, PhD CLIA Number: [id number] Performed By: #### C RP #### [address] [address] Ripsaw Matcher: Dioni Merlos MD Quanti TB1 minus NIL 0.00 IU/mL Normal <=0.34 [facility] Comment on above: Performed By: #### C RP #### [address] [address] Ripsaw Matcher: Dioni Merlos MD Quanti TB2 minus NIL 0.00 IU/mL Normal <=0.34 [facility] Comment on above: Performed By: #### C RP #### [address] [address] Ripsaw Matcher: Dioni Merlos MD QuantiFERON NIL 0.05 IU/mL Normal [facility] Comment on above: Performed By: #### C RP #### [address] [address] Ripsaw Matcher: Dioni Merlos MD Basic Metabolic Profon 01-27 Anion gap [Moles/Vol] 8 mmol/L Low 9-16 [facility] Comment on above: Performed By: #### C BC, LACTIC #### [address] [address] Ripsaw Matcher: Dioni Merlos MD Calcium [Mass/Vol] 7.8 mg/dL Low 8.6-10.4 [facility] Comment on above: Performed By: #### C BC, LACTIC #### [facility] [address] [place] [address] Ripsaw Matcher: Dioni Merlos MD Chloride [Moles/Vol] 107 mmol/L Normal 98-107 [facility] Comment on above: Performed By: #### C BC, LACTIC #### [facility] [address] [place] [address] Ripsaw Matcher: Dioni Merlos MD CO2 [Moles/Vol] 26 mmol/L Normal 20-31 [facility] Comment on above: Performed By: #### C BC, LACTIC #### [facility] [address] [place] [address] Ripsaw Matcher: Dioni Merlos MD Creatinine [Mass/Vol] 0.6 mg/dL Normal 0.50-0.90 [facility] Comment on above: Performed By: #### C BC, LACTIC #### [address] [address] Ripsaw Matcher: Dioni Merlos MD GFR/1.73 sq M.predicted among non-blacks MDRD (S/P/Bld) [Vol rate/Area] mL/min/{1.73_m2} Normal >60 [facility] Comment on above: Result Comment: These results are not intended for use in patients <18 years of age. eGFR results are calculated without a race factor using the 2020 CKD-EPI equation. Careful clinical correlation is recommended, particularly when comparing to results calculated using previous equations. The CKD-EPI equation is less accurate in patients with extremes of muscle mass, extra-renal metabolism of creatine, excessive creatine ingestion, or following therapy that affects renal tubular secretion. Performed By: #### C BC, LACTIC #### [facility] [address] [place] [address] Ripsaw Matcher: Dioni Merlos MD Glucose [Mass/Vol] 98 mg/dL Normal 74-99 [facility] Comment on above: Performed By: #### C BC, LACTIC #### [facility] [place] [address] Ripsaw Matcher: Dioni Merlos MD Potassium [Moles/Vol] 3.7 mmol/L Normal 3.7-5.3 [facility] Comment on above: Performed By: #### C BC, LACTIC #### [facility] [address] [place] [address] Ripsaw Matcher: Dioni Merlos MD Sodium [Moles/Vol] 141 mmol/L Normal 136-145 [facility] Comment on above: Performed By: #### C BC, LACTIC #### [facility] [address] [place] [address] Ripsaw Matcher: Dioni Merlos MD Urea nitrogen [Mass/Vol] 3 mg/dL Low 6-20 [facility] Comment on above: Performed By: #### C BC, LACTIC #### [facility] [address] [place] [address] Ripsaw Matcher: Dioni Merlos MD CBC with Diffon 01-28-2024 Abs. Basophil <0.03 Normal 0.00-0.20 [facility] Comment on above: Performed By: #### C BC, LACTIC #### [facility] [address] [place] [address] Ripsaw Matcher: Dioni Merlos MD Abs. Eosinophil <0.03 Normal 0.00-0.44 [facility] Comment on above: Performed By: #### C BC, LACTIC #### [facility] [address] [place] [address] Ripsaw Matcher: Dioni Merlos MD Abs.Imm.Granulocyte 0.06 k/uL Normal 0.00-0.30 [facility] Comment on above: Performed By: #### C BC, LACTIC #### [facility] [address] [place] [address] Ripsaw Matcher: Dioni Merlos MD Abs.Neutrophil (Seg) 8.93 k/uL High 1.50-8.10 [facility] Comment on above: Performed By: #### C BC, LACTIC #### [address] [address] Ripsaw Matcher: Dioni Merlos MD Basophils/100 WBC (Bld) 0 % Normal 0-2 [facility] Comment on above: Performed By: #### C BC, LACTIC #### [facility] [address] [place] [address] Ripsaw Matcher: Dioni Merlos MD Eosinophils/100 WBC (Bld) 0 % Low 1-4 [facility] Comment on above: Performed By: #### C BC, LACTIC #### [address] [address] Ripsaw Matcher: Dioni Merlos MD Erythrocyte distribution width (RBC) [Ratio] 14.0 % Normal 11.8-14.4 [facility] Comment on above: Performed By: #### C BC, LACTIC #### [address] [address] Ripsaw Matcher: Dioni Merlos MD Hematocrit (Bld) [Volume fraction] 35.1 % Low 36.3-47.1 [facility] Comment on above: Performed By: #### C BC, LACTIC #### [address] [address] Ripsaw Matcher: Dioni Merlos MD Hemoglobin (Bld) [Mass/Vol] 10.4 g/dL Low 11.9-15.1 [facility] Comment on above: Performed By: #### C BC, LACTIC #### [facility] [address] [place] [address] Ripsaw Matcher: Dioni Merlos MD Immature granulocytes/100 WBC (Bld) 1 % High 0 [facility] Comment on above: Performed By: #### C BC, LACTIC #### [facility] [address] [place] [address] Ripsaw Matcher: Dioni Merlos MD Lymphocytes (Bld) [#/Vol] 0.74 10*3/uL Low 1.10-3.70 [facility] Comment on above: Performed By: #### C BC, LACTIC #### [address] [address] Ripsaw Matcher: Dioni Merlos MD Lymphocytes/100 WBC (Bld) 7 % Low 24-43 [facility] Comment on above: Performed By: #### C BC, LACTIC #### [address] [address] Ripsaw Matcher: Dioni Merlos MD MCH (RBC) [Entitic mass] 29.5 pg Normal 25.2-33.5 [facility] Comment on above: Performed By: #### C BC, LACTIC #### [address] [address] Ripsaw Matcher: Dioni Merlos MD MCHC (RBC) [Mass/Vol] 29.6 g/dL Normal 28.4-34.8 [facility] Comment on above: Performed By: #### C BC, LACTIC #### [address] [address] Ripsaw Matcher: Dioni Merlos MD MCV (RBC) [Entitic vol] 99.4 fL Normal 82.6-102.9 [facility] Comment on above: Performed By: #### C BC, LACTIC #### [address] [address] Ripsaw Matcher: Dioni Merlos MD Monocytes (Bld) [#/Vol] 0.32 10*3/uL Normal 0.10-1.20 [facility] Comment on above: Performed By: #### C BC, LACTIC #### [address] [address] Ripsaw Matcher: Dioni Merlos MD Monocytes/100 WBC (Bld) 3 % Normal 3-12 [facility] Comment on above: Performed By: #### C BC, LACTIC #### [address] [address] Ripsaw Matcher: Dioni Merlos MD Neutrophil (Seg) 89 % High 36-65 [facility] Comment on above: Performed By: #### C BC, LACTIC #### [address] [address] Ripsaw Matcher: Dioni Merlos MD NRBC Automated 0.0 per 100 WBC Normal 0.0 [facility] Comment on above: Performed By: #### C BC, LACTIC #### [address] [address] Ripsaw Matcher: Dioni Merlos MD Platelet mean volume (Bld) [Entitic vol] 9.2 fL Normal 8.1-13.5 [facility] Comment on above: Performed By: #### C BC, LACTIC #### [address] [address] Ripsaw Matcher: Dioni Merlos MD Platelets (Bld) [#/Vol] 283 10*3/uL Normal 138-453 [facility] Comment on above: Performed By: #### C BC, LACTIC #### [address] [address] Ripsaw Matcher: Dioni Merlos MD RBC (Bld) [#/Vol] 3.53 10*6/uL Low 3.95-5.11 [facility] Comment on above: Performed By: #### C BC, LACTIC #### [facility] [address] [place] [address] Ripsaw Matcher: Dioni Merlos MD WBC (Bld) [#/Vol] 10.1 10*3/uL Normal 3.5-11.3 [facility] Comment on above: Performed By: #### C BC, LACTIC #### [facility] [address] [place] [address] Ripsaw Matcher: Dioni Merlos MD B12/Folate Panelon Cobalamin (Vitamin B12) [Mass/Vol] pg/mL Low 232-1245 [facility] Comment on above: Performed By: #### C RP, HCG, LIP, TROPI, CDP, CP #### [facility] [address] [place] [address] Ripsaw Matcher: Dioni Merlos MD Folic Acid 11.4 ng/mL Normal 4.8-24.2 [facility] Comment on above: Performed By: #### C RP, HCG, LIP, TROPI, CDP, CP #### [facility] [address] [place] [address] Ripsaw Matcher: Dioni Merlos MD Basic Metabolic Profon 01-263 Anion gap [Moles/Vol] 7 mmol/L Low 9-16 [facility] Comment on above: Performed By: #### C RP, HCG, LIP, TROPI, CDP, CP #### [facility] [address] [place] [address] Ripsaw Matcher: Dioni Merlos MD Calcium [Mass/Vol] 7.9 mg/dL Low 8.6-10.4 [facility] Comment on above: Performed By: #### C RP, HCG, LIP, TROPI, CDP, CP #### [facility] [address] [place] [address] Ripsaw Matcher: Dioni Merlos MD Chloride [Moles/Vol] 103 mmol/L Normal 98-107 [facility] Comment on above: Performed By: #### C RP, HCG, LIP, TROPI, CDP, CP #### [facility] [address] [place] [address] Ripsaw Matcher: Dioni Merlos MD CO2 [Moles/Vol] 29 mmol/L Normal 20-31 [facility] Comment on above: Performed By: #### C RP, HCG, LIP, TROPI, CDP, CP #### [address] [address] Ripsaw Matcher: Dioni Merlos MD Creatinine [Mass/Vol] 0.7 mg/dL Normal 0.50-0.90 [facility] Comment on above: Performed By: #### C RP, HCG, LIP, TROPI, CDP, CP #### [address] [address] Ripsaw Matcher: Dioni Merlos MD GFR/1.73 sq M.predicted among non-blacks MDRD (S/P/Bld) [Vol rate/Area] mL/min/{1.73_m2} Normal >60 [facility] Comment on above: Result Comment: These results are not intended for use in patients <18 years of age. eGFR results are calculated without a race factor using the 2020 CKD-EPI equation. Careful clinical correlation is recommended, particularly when comparing to results calculated using previous equations. The CKD-EPI equation is less accurate in patients with extremes of muscle mass, extra-renal metabolism of creatine, excessive creatine ingestion, or following therapy that affects renal tubular secretion. Performed By: #### C RP, HCG, LIP, TROPI, CDP, CP #### [address] [address] Ripsaw Matcher: Dioni Merlos MD Glucose [Mass/Vol] 91 mg/dL Normal 74-99 [facility] Comment on above: Performed By: #### C RP, HCG, LIP, TROPI, CDP, CP #### [address] [address] Ripsaw Matcher: Dioni Merlos MD Potassium [Moles/Vol] 3.6 mmol/L Low 3.7-5.3 [facility] Comment on above: Performed By: #### C RP, HCG, LIP, TROPI, CDP, CP #### [facility] [address] [place] [address] Ripsaw Matcher: Dioni Merlos MD Sodium [Moles/Vol] 139 mmol/L Normal 136-145 [facility] Comment on above: Performed By: #### C RP, HCG, LIP, TROPI, CDP, CP #### [facility] [address] [place] [address] Ripsaw Matcher: Dioni Merlos MD Urea nitrogen [Mass/Vol] 6 mg/dL Normal 6-20 [facility] Comment on above: Performed By: #### C RP, HCG, LIP, TROPI, CDP, CP #### [facility] [address] [place] [address] Ripsaw Matcher: Dioni Merlos MD C diff Ag + Toxinon 01-27-20 24 C diff Ag + Toxin Negative Normal NEG [facility] Comment on above: Result Comment: No C . difficile antigen and Toxin Detected. Performed By: #### C BC, LACTIC #### [facility] [address] [place] [address] Ripsaw Matcher: Dioni Merlos MD CBC with Diffon 01-27-2024 Abs. Basophil <0.03 Normal 0.00-0.20 [facility] Comment on above: Performed By: #### C RP, HCG, LIP, TROPI, CDP, CP #### [facility] [address] [place] [address] Ripsaw Matcher: Dioni Merlos MD Abs. Eosinophil <0.03 Normal 0.00-0.44 [facility] Comment on above: Performed By: #### C RP, HCG, LIP, TROPI, CDP, CP #### [facility] [address] [place] [address] Ripsaw Matcher: Dioni Merlos MD Abs.Imm.Granulocyte 0.04 k/uL Normal 0.00-0.30 [facility] Comment on above: Performed By: #### C RP, HCG, LIP, TROPI, CDP, CP #### [address] [address] Ripsaw Matcher: Dioni Merlos MD Abs.Neutrophil (Seg) 6.87 k/uL Normal 1.50-8.10 [facility] Comment on above: Performed By: #### C RP, HCG, LIP, TROPI, CDP, CP #### [address] [address] Ripsaw Matcher: Dioni Merlos MD Basophils/100 WBC (Bld) 0 % Normal 0-2 [facility] Comment on above: Performed By: #### C RP, HCG, LIP, TROPI, CDP, CP #### [address] [address] Ripsaw Matcher: Dioni Merlos MD Eosinophils/100 WBC (Bld) 0 % Low 1-4 [facility] Comment on above: Performed By: #### C RP, HCG, LIP, TROPI, CDP, CP #### [address] [address] Ripsaw Matcher: Dioni Merlos MD Erythrocyte distribution width (RBC) [Ratio] 13.7 % Normal 11.8-14.4 [facility] Comment on above: Performed By: #### C RP, HCG, LIP, TROPI, CDP, CP #### [address] [address] Ripsaw Matcher: Dioni Merlos MD Hematocrit (Bld) [Volume fraction] 34.1 % Low 36.3-47.1 [facility] Comment on above: Performed By: #### C RP, HCG, LIP, TROPI, CDP, CP #### [address] [address] Ripsaw Matcher: Dioni Merlos MD Hemoglobin (Bld) [Mass/Vol] 10.5 g/dL Low 11.9-15.1 [facility] Comment on above: Performed By: #### C RP, HCG, LIP, TROPI, CDP, CP #### [address] [address] Ripsaw Matcher: Dioni Merlos MD Immature granulocytes/100 WBC (Bld) 1 % High 0 [facility] Comment on above: Performed By: #### C RP, HCG, LIP, TROPI, CDP, CP #### [address] [address] Ripsaw Matcher: Dioni Merlos MD Lymphocytes (Bld) [#/Vol] 1.01 10*3/uL Low 1.10-3.70 [facility] Comment on above: Performed By: #### C RP, HCG, LIP, TROPI, CDP, CP #### [address] [address] Ripsaw Matcher: Dioni Merlos MD Lymphocytes/100 WBC (Bld) 12 % Low 24-43 [facility] Comment on above: Performed By: #### C RP, HCG, LIP, TROPI, CDP, CP #### [address] [address] Ripsaw Matcher: Dioni Merlos MD MCH (RBC) [Entitic mass] 29.0 pg Normal 25.2-33.5 [facility] Comment on above: Performed By: #### C RP, HCG, LIP, TROPI, CDP, CP #### [address] [address] Ripsaw Matcher: Dioni Merlos MD MCHC (RBC) [Mass/Vol] 30.8 g/dL Normal 28.4-34.8 [facility] Comment on above: Performed By: #### C RP, HCG, LIP, TROPI, CDP, CP #### [address] [address] Ripsaw Matcher: Dioni Merlos MD MCV (RBC) [Entitic vol] 94.2 fL Normal 82.6-102.9 [facility] Comment on above: Performed By: #### C RP, HCG, LIP, TROPI, CDP, CP #### [address] [address] Ripsaw Matcher: Dioni Merlos MD Monocytes (Bld) [#/Vol] 0.60 10*3/uL Normal 0.10-1.20 [facility] Comment on above: Performed By: #### C RP, HCG, LIP, TROPI, CDP, CP #### [address] [address] Ripsaw Matcher: Dioni Merlos MD Monocytes/100 WBC (Bld) 7 % Normal 3-12 [facility] Comment on above: Performed By: #### C RP, HCG, LIP, TROPI, CDP, CP #### [address] [address] Ripsaw Matcher: Dioni Merlos MD Neutrophil (Seg) 80 % High 36-65 [facility] Comment on above: Performed By: #### C RP, HCG, LIP, TROPI, CDP, CP #### [address] [address] Ripsaw Matcher: Dioni Merlos MD NRBC Automated 0.0 per 100 WBC Normal 0.0 [facility] Comment on above: Performed By: #### C RP, HCG, LIP, TROPI, CDP, CP #### [address] [address] Ripsaw Matcher: Dioni Merlos MD Platelet mean volume (Bld) [Entitic vol] 9.5 fL Normal 8.1-13.5 [facility] Comment on above: Performed By: #### C RP, HCG, LIP, TROPI, CDP, CP #### [address] [address] Ripsaw Matcher: Dioni Merlos MD Platelets (Bld) [#/Vol] 354 10*3/uL Normal 138-453 [facility] Comment on above: Performed By: #### C RP, HCG, LIP, TROPI, CDP, CP #### [address] [address] Ripsaw Matcher: Dioni Merlos MD RBC (Bld) [#/Vol] 3.62 10*6/uL Low 3.95-5.11 [facility] Comment on above: Performed By: #### C RP, HCG, LIP, TROPI, CDP, CP #### [address] [address] Ripsaw Matcher: Dioni Merlos MD WBC (Bld) [#/Vol] 8.6 10*3/uL Normal 3.5-11.3 [facility] Comment on above: Performed By: #### C RP, HCG, LIP, TROPI, CDP, CP #### [address] [address] Ripsaw Matcher: Dioni Merlos MD Hepatitis Acute [facility] 01-26 Hep A Ab,IgM Non-Reactive Normal NR [facility] Comment on above: Performed By: #### C RP, HCG, LIP, TROPI, CDP, CP #### [facility] [address] [place] [address] Ripsaw Matcher: Dioni Merlos MD Hep B Core Ab,IgM Non-Reactive Normal NR [facility] Comment on above: Performed By: #### C RP, HCG, LIP, TROPI, CDP, CP #### [address] [address] Ripsaw Matcher: Dioni Merlos MD Hep B Surf Ag Non-Reactive Normal NR [facility] Comment on above: Performed By: #### C RP, HCG, LIP, TROPI, CDP, CP #### [facility] [address] [place] [address] Ripsaw Matcher: Dioni Merlos MD Hep C Ab Non-Reactive Normal NR [facility] Comment on above: Result Comment: The hepatitis C procedure used in our laboratory is a Chemiluminescent test specific for three recombinant HCV antigens. A negative anti-HCV result indicates that the antibodies to hepatitis C virus are not present at this time. Individuals with reactive anti-HCV should be considered infected and infectious until proven otherwise. Confirmation of all equivocal or reactive results is recommended by ordering HCV RNA by PCR. Performed By: #### C RP, HCG, LIP, TROPI, CDP, CP #### [facility] [address] [place] [address] Ripsaw Matcher: Dioni Merlos MD Stool PCR [facility] 01-27-20 Campylobacter sp PCR NEGATIVE: No Campylobacter spp. (jejuni or coli) DNA Detected Normal CAMNEG [facility] Comment on above: Performed By: #### C RP, HCG, LIP, TROPI, CDP, CP #### [facility] [address] [place] [address] Ripsaw Matcher: Dioni Merlos MD E coli enterotox PCR NEGATIVE: No Enterotoxigenic E. coli (ETEC) Heat-labile and heat-stable (LT/ST) Normal EECNEG [facility] Comment on above: Result Comment: DNA Detected Performed By: #### C RP, HCG, LIP, TROPI, CDP, CP #### [facility] [address] [place] [address] Ripsaw Matcher: Dioni Merlos MD Plesiomonas sp PCR Negative Normal PLENEG [facility] Comment on above: Performed By: #### C RP, HCG, LIP, TROPI, CDP, CP #### [facility] [address] [place] [address] Ripsaw Matcher: Dioni Merlos MD Salmonella sp PCR Negative Normal SALNEG [facility] Comment on above: Performed By: #### C RP, HCG, LIP, TROPI, CDP, CP #### [facility] [address] [place] [address] Ripsaw Matcher: Dioni Merlos MD Shigatoxin gene PCR Negative Normal STXNEG [facility] Comment on above: Performed By: #### C RP, HCG, LIP, TROPI, CDP, CP #### [facility] [address] [place] [address] Ripsaw Matcher: Dioni Merlos MD Shigella sp PCR Negative Normal SHINEG [facility] Comment on above: Performed By: #### C RP, HCG, LIP, TROPI, CDP, CP #### [facility] [address] [place] [address] Ripsaw Matcher: Dioni Merlos MD Vibrio sp PCR NEGATIVE: No Vibrio (V. vulnificus, V, parahaemolyticus and V. cholerae) DNA Normal VIBNEG [facility] Comment on above: Result Comment: Dete cted Performed By: #### C RP, HCG, LIP, TROPI, CDP, CP #### [facility] [address] [place] [address] Ripsaw Matcher: Dioni Merlos MD Yersinia gene PCR Negative Normal YERNEG [facility] Comment on above: Performed By: #### C RP, HCG, LIP, TROPI, CDP, CP #### [facility] [address] [place] [address] Ripsaw Matcher: Dioni Merlos MD Vitamin D 25 OHon 01-27-2024 Vitamin D 25 OH 21.0 ng/mL Low 30.0-100.0 [facility] Comment on above: Result Comment: Reference Range: Vitamin D status Range Deficiency <20 ng/mL Mild Deficiency 20-30 ng/mL Sufficiency 30-100 ng/mL Toxicity >100 ng/mL Performed By: #### C RP, HCG, LIP, TROPI, CDP, CP #### [address] [address] Ripsaw Matcher: Dioni Merlos MD Basic Metabolic Profon 01-25 Anion gap [Moles/Vol] 9 mmol/L Normal 9-16 [facility] Comment on above: Performed By: #### C BC, LACTIC #### [address] [address] Ripsaw Matcher: Dioni Merlos MD Calcium [Mass/Vol] 8.5 mg/dL Low 8.6-10.4 [facility] Comment on above: Performed By: #### C BC, LACTIC #### [facility] [address] [place] [address] Ripsaw Matcher: Dioni Merlos MD Chloride [Moles/Vol] 100 mmol/L Normal 98-107 [facility] Comment on above: Performed By: #### C BC, LACTIC #### [facility] [address] [place] [address] Ripsaw Matcher: Dioni Merlos MD CO2 [Moles/Vol] 31 mmol/L Normal 20-31 [facility] Comment on above: Performed By: #### C BC, LACTIC #### [address] [address] Ripsaw Matcher: Dioni Merlos MD Creatinine [Mass/Vol] 0.6 mg/dL Normal 0.50-0.90 [facility] Comment on above: Performed By: #### C BC, LACTIC #### [facility] [address] [place] [address] Ripsaw Matcher: Dioni Merlos MD GFR/1.73 sq M.predicted among non-blacks MDRD (S/P/Bld) [Vol rate/Area] mL/min/{1.73_m2} Normal >60 [facility] Comment on above: Result Comment: These results are not intended for use in patients <18 years of age. eGFR results are calculated without a race factor using the 2020 CKD-EPI equation. Careful clinical correlation is recommended, particularly when comparing to results calculated using previous equations. The CKD-EPI equation is less accurate in patients with extremes of muscle mass, extra-renal metabolism of creatine, excessive creatine ingestion, or following therapy that affects renal tubular secretion. Performed By: #### C BC, LACTIC #### [facility] [address] [place] [address] Ripsaw Matcher: Dioni Merlos MD Glucose [Mass/Vol] 103 mg/dL High 74-99 [facility] Comment on above: Performed By: #### C BC, LACTIC #### [facility] [address] [place] [address] Ripsaw Matcher: Dioni Merlos MD Potassium [Moles/Vol] 3.4 mmol/L Low 3.7-5.3 [facility] Comment on above: Performed By: #### C BC, LACTIC #### [facility] [address] [place] [address] Ripsaw Matcher: Dioni Merlos MD Sodium [Moles/Vol] 140 mmol/L Normal 136-145 [facility] Comment on above: Performed By: #### C BC, LACTIC #### [facility] [address] [place] [address] Ripsaw Matcher: Dioni Merlos MD Urea nitrogen [Mass/Vol] 6 mg/dL Normal 6-20 [facility] Comment on above: Performed By: #### C BC, LACTIC #### [facility] [address] [place] [address] Ripsaw Matcher: Dioni Merlos MD C-Reactive Proteinon 01-25- 024 CRP [Mass/Vol] 6.8 mg/L High 0.0-5.0 [facility] Comment on above: Performed By: #### C RP #### [facility] [address] [place] [address] Ripsaw Matcher: Dioni Merlos MD CBC with Diffon 01-26-2024 Abs. Basophil 0.00 k/uL Normal 0.0-0.2 [facility] Comment on above: Performed By: #### C BC, LACTIC #### [facility] [address] [place] [address] Ripsaw Matcher: Dioni Merlos MD Abs.Imm.Granulocyte 0.00 k/uL Normal 0.00-0.30 [facility] Comment on above: Performed By: #### C BC, LACTIC #### [facility] [address] [place] [address] Ripsaw Matcher: Dioni Merlos MD Abs.Neutrophil (Seg) 12.46 k/uL High 1.8-7.7 [facility] Comment on above: Performed By: #### C BC, LACTIC #### [facility] [address] [place] [address] Ripsaw Matcher: Dioni Merlos MD Basophils/100 WBC (Bld) 0 % Normal 0-2 [facility] Comment on above: Performed By: #### C BC, LACTIC #### [facility] [address] [place] [address] Ripsaw Matcher: Dioni Merlos MD Eosinophils (Bld) [#/Vol] 0.00 10*3/uL Normal 0.0-0.4 [facility] Comment on above: Performed By: #### C BC, LACTIC #### [facility] [address] [place] [address] Ripsaw Matcher: Dioni Merlos MD Eosinophils/100 WBC (Bld) 0 % Low 1-4 [facility] Comment on above: Performed By: #### C BC, LACTIC #### [facility] [address] [place] [address] Ripsaw Matcher: Dioni Merlos MD Immature granulocytes/100 WBC (Bld) 0 % Normal 0 [facility] Comment on above: Performed By: #### C BC, LACTIC #### [facility] [address] [place] [address] Ripsaw Matcher: Dioni Merlos MD Lymphocytes (Bld) [#/Vol] 0.67 10*3/uL Low 1.0-4.8 [facility] Comment on above: Performed By: #### C BC, LACTIC #### [facility] [address] [place] [address] Ripsaw Matcher: Dioni Merlos MD Lymphocytes/100 WBC (Bld) 5 % Low 24-44 [facility] Comment on above: Performed By: #### C BC, LACTIC #### [address] [address] Ripsaw Matcher: Dioni Merlos MD Monocytes (Bld) [#/Vol] 0.27 10*3/uL Normal 0.1-0.8 [facility] Comment on above: Performed By: #### C BC, LACTIC #### [address] [address] Ripsaw Matcher: Dioni Merlos MD Monocytes/100 WBC (Bld) 2 % Normal 1-7 [facility] Comment on above: Performed By: #### C BC, LACTIC #### [address] [address] Ripsaw Matcher: Dioni Merlos MD Morphology Eliu (Bld) [Interp] Normal Normal [facility] Comment on above: Performed By: #### C BC, LACTIC #### [address] [address] Ripsaw Matcher: Dioni Merlos MD Neutrophil (Seg) 93 % High 36-66 [facility] Comment on above: Performed By: #### C BC, LACTIC #### [address] [place] [address] Ripsaw Matcher: Dioni Merlos MD Erythrocyte distribution width (RBC) [Ratio] 13.9 % Normal 11.8-14.4 [facility] Comment on above: Performed By: #### C BC, LACTIC #### [address] [address] Ripsaw Matcher: Dioni Merlos MD Hematocrit (Bld) [Volume fraction] 38.2 % Normal 36.3-47.1 [facility] Comment on above: Performed By: #### C BC, LACTIC #### [address] [address] Ripsaw Matcher: Dioni Merlos MD Hemoglobin (Bld) [Mass/Vol] 12.0 g/dL Normal 11.9-15.1 [facility] Comment on above: Performed By: #### C BC, LACTIC #### [address] [address] Ripsaw Matcher: Dioni Merlos MD MCH (RBC) [Entitic mass] 30.0 pg Normal 25.2-33.5 [facility] Comment on above: Performed By: #### C BC, LACTIC #### [address] [address] Ripsaw Matcher: Dioni Merlos MD MCHC (RBC) [Mass/Vol] 31.4 g/dL Normal 28.4-34.8 [facility] Comment on above: Performed By: #### C BC, LACTIC #### [address] [address] Ripsaw Matcher: Dioni Merlos MD MCV (RBC) [Entitic vol] 95.5 fL Normal 82.6-102.9 [facility] Comment on above: Performed By: #### C BC, LACTIC #### [address] [address] Ripsaw Matcher: Dioni Merlos MD NRBC Automated 0.0 per 100 WBC Normal 0.0 [facility] Comment on above: Performed By: #### C BC, LACTIC #### [facility] [address] [place] [address] Ripsaw Matcher: Dioni Merlos MD Platelet mean volume (Bld) [Entitic vol] 9.2 fL Normal 8.1-13.5 [facility] Comment on above: Performed By: #### C BC, LACTIC #### [facility] [address] [place] [address] Ripsaw Matcher: Dioni Merlos MD Platelets (Bld) [#/Vol] 404 10*3/uL Normal 138-453 [facility] Comment on above: Performed By: #### C BC, LACTIC #### [facility] [address] [place] [address] Ripsaw Matcher: Dioni Merlos MD RBC (Bld) [#/Vol] 4.00 10*6/uL Normal 3.95-5.11 [facility] Comment on above: Performed By: #### C BC, LACTIC #### [facility] [address] [place] [address] Ripsaw Matcher: Dioni Merlos MD WBC (Bld) [#/Vol] 13.4 10*3/uL High 3.5-11.3 [facility] Comment on above: Performed By: #### C BC, LACTIC #### [facility] [address] [place] [address] Ripsaw Matcher: Dioni Merlos MD Lipaseon 01-26-2024 Lipase [Catalytic activity/Vol] 21 U/L Normal 13-60 [facility] Comment on above: Performed By: #### C BC, LACTIC #### [facility] [address] [place] [address] Ripsaw Matcher: Dioni Merlos MD Stool PCR [place] 01-26-20 24 Specimen Description .FECES Normal [facility] Comment on above: Performed By: #### C RP, HCG, LIP, TROPI, CDP, CP #### [facility] [address] [place] [address] Ripsaw Matcher: Dioni Merlos MD Performed By: #### C BC, LACTIC #### [facility] [address] [place] [address] Ripsaw Matcher: Dioni Merlos MD C-Reactive Proteinon 024 CRP [Mass/Vol] 8.0 mg/L High 0.0-5.0 [facility] Comment on above: Performed By: #### C BC, LACTIC #### [facility] [address] [place] [address] Ripsaw Matcher: Dioni Merlos MD CBC with Diffon 01-25-2024 Abs. Basophil 0.03 k/uL Normal 0.00-0.20 [facility] Comment on above: Performed By: #### C BC, LACTIC #### [facility] [address] [place] [address] Ripsaw Matcher: Dioni Merlos MD Abs. Eosinophil <0.03 Normal 0.00-0.44 [facility] Comment on above: Performed By: #### C BC, LACTIC #### [facility] [address] [place] [address] Ripsaw Matcher: Dioni Merlos MD Abs.Imm.Granulocyte 0.06 k/uL Normal 0.00-0.30 [facility] Comment on above: Performed By: #### C BC, LACTIC #### [facility] [address] [place] [address] Ripsaw Matcher: Dioni Merlos MD Abs.Neutrophil (Seg) 11.37 k/uL High 1.50-8.10 [facility] Comment on above: Performed By: #### C BC, LACTIC #### [facility] [address] [place] [address] Ripsaw Matcher: Dioni Merlos MD Basophils/100 WBC (Bld) 0 % Normal 0-2 [facility] Comment on above: Performed By: #### C BC, LACTIC #### [facility] [address] [place] [address] Ripsaw Matcher: Dioni Merlos MD Eosinophils/100 WBC (Bld) 0 % Low 1-4 [facility] Comment on above: Performed By: #### C BC, LACTIC #### [facility] [address] [place] [address] Ripsaw Matcher: Dioni Merlos MD Erythrocyte distribution width (RBC) [Ratio] 13.9 % Normal 11.8-14.4 [facility] Comment on above: Performed By: #### C BC, LACTIC #### [facility] [address] [place] [address] Ripsaw Matcher: Dioni Merlos MD Hematocrit (Bld) [Volume fraction] 35.2 % Low 36.3-47.1 [facility] Comment on above: Performed By: #### C BC, LACTIC #### [facility] [address] [place] [address] Ripsaw Matcher: Dioni Merlos MD Hemoglobin (Bld) [Mass/Vol] 11.1 g/dL Low 11.9-15.1 [facility] Comment on above: Performed By: #### C BC, LACTIC #### [facility] [address] [place] [address] Ripsaw Matcher: Dioni Merlos MD Immature granulocytes/100 WBC (Bld) 0 % Normal 0 [facility] Comment on above: Performed By: #### C BC, LACTIC #### [facility] [address] [place] [address] Ripsaw Matcher: Dioni Merlos MD Lymphocytes (Bld) [#/Vol] 2.15 10*3/uL Normal 1.10-3.70 [facility] Comment on above: Performed By: #### C BC, LACTIC #### [address] [address] Ripsaw Matcher: Dioni Merlos MD Lymphocytes/100 WBC (Bld) 15 % Low 24-43 [facility] Comment on above: Performed By: #### C BC, LACTIC #### [address] [address] Ripsaw Matcher: Dioni Merlos MD MCH (RBC) [Entitic mass] 29.7 pg Normal 25.2-33.5 [facility] Comment on above: Performed By: #### C BC, LACTIC #### [address] [address] Ripsaw Matcher: Dioni Merlos MD MCHC (RBC) [Mass/Vol] 31.5 g/dL Normal 28.4-34.8 [facility] Comment on above: Performed By: #### C BC, LACTIC #### [address] [address] Ripsaw Matcher: Dioni Merlos MD MCV (RBC) [Entitic vol] 94.1 fL Normal 82.6-102.9 [facility] Comment on above: Performed By: #### C BC, LACTIC #### [address] [address] Ripsaw Matcher: Dioni Merlos MD Monocytes (Bld) [#/Vol] 0.77 10*3/uL Normal 0.10-1.20 [facility] Comment on above: Performed By: #### C BC, LACTIC #### [address] [address] Ripsaw Matcher: Dioni Merlos MD Monocytes/100 WBC (Bld) 5 % Normal 3-12 [facility] Comment on above: Performed By: #### C BC, LACTIC #### [address] [address] Ripsaw Matcher: Dioni Merlos MD Neutrophil (Seg) 80 % High 36-65 [facility] Comment on above: Performed By: #### C BC, LACTIC #### [address] [address] Ripsaw Matcher: Dioni Merlos MD NRBC Automated 0.0 per 100 WBC Normal 0.0 [facility] Comment on above: Performed By: #### C BC, LACTIC #### [address] [address] Ripsaw Matcher: Dioni Merlos MD Platelet mean volume (Bld) [Entitic vol] 9.1 fL Normal 8.1-13.5 [facility] Comment on above: Performed By: #### C BC, LACTIC #### [address] [address] Ripsaw Matcher: Dioni Merlos MD Platelets (Bld) [#/Vol] 378 10*3/uL Normal 138-453 [facility] Comment on above: Performed By: #### C BC, LACTIC #### [address] [address] Ripsaw Matcher: Dioni Merlos MD RBC (Bld) [#/Vol] 3.74 10*6/uL Low 3.95-5.11 [facility] Comment on above: Performed By: #### C BC, LACTIC #### [address] [address] Ripsaw Matcher: Dioni Merlos MD WBC (Bld) [#/Vol] 14.4 10*3/uL High 3.5-11.3 [facility] Comment on above: Performed By: #### C BC, LACTIC #### [facility] [address] [place] [address] Ripsaw Matcher: Dioni Merlos MD CT ABDOMEN PELVIS W IV CONTR Denise 01-25-2024 CT ABDOMEN PELVIS W IV CONTRAST EXAMINATION: CT OF THE ABDOMEN AND PELVIS WITH CONTRAST 01/25/2024 10:59 am TECHNIQUE: CT of the abdomen and pelvis was performed with the administration of intravenous contrast. Multiplanar reformatted images are provided for review. Automated exposure control, iterative reconstruction, and/or weight based adjustment of the mA/kV was utilized to reduce the radiation dose to as low as reasonably achievable. COMPARISON: 11/23/2023 HISTORY: ORDERING SYSTEM PROVIDED HISTORY: Abdominal pain TECHNOLOGIST PROVIDED HISTORY: Abdominal pain Decision Support Exception - unselect if not a suspected or confirmed emergency medical condition->Emergency Medical Condition (MA) Reason for Exam: abd pain FINDINGS: Lower Chest: Visualized portion of the lower chest demonstrates no acute abnormality. Organs: Stable hepatomegaly.. Liver enhances normally without evidence of intrahepatic biliary ductal dilatation. The gallbladder is unremarkable. The portal vein is patent. The spleen, pancreas and adrenal glands are unremarkable. The kidneys enhance symmetrically without evidence of hydronephrosis. GI/Bowel: Stomach and duodenal sweep demonstrate no acute abnormality. There is evidence of prior postsurgical changes noted at the ileocecal valve possibly secondary to prior terminal ileal resection. There is diffuse circumferential wall thickening noted of the distal ileum with surrounding inflammatory changes. The inflammatory changes involve the majority of the remaining ileum. Proximal to this there is dilatation of the small bowel likely representing a partial small bowel obstruction. The degree of inflammatory changes and amount of small bowel involved is relatively unchanged since prior CT. Findings remain suspicious for inflammatory bowel disease such as Crohn's disease. No evidence of abscess. There is hyperemia of the mesentery with mesenteric ascites present. The colon demonstrates no focal wall thickening or colonic obstruction. Pelvis: The uterus and adnexa are unremarkable. The bladder is unremarkable. Peritoneum/Retroperi toneum: No free air. There is mild pelvic ascites. No evidence of lymphadenopathy. Aorta is normal in caliber. Bones/Soft Tissues: No acute abnormality of the visualized osseous structures. IMPRESSION: 1. Diffuse circumferential wall thickening noted of the distal ileum with surrounding inflammatory changes. The inflammatory changes involve the majority of the remaining ileum. Proximal to this there is dilatation of the small bowel likely representing a partial small bowel obstruction which appears relatively unchanged since prior CT. Findings remain suspicious for inflammatory bowel disease such as Crohn's disease. 2. Stable mild ascites. 3. Stable hepatomegaly. Interpreted by: Bishnu Cardoso MD Signed by: Bishnu Cardoso MD 01/25/24 Final result Normal [facility] Comp Metabolic Profon 2023 Albumin [Mass/Vol] 3.3 g/dL Low 3.5-5.2 [facility] Comment on above: Performed By: #### C BC, LACTIC #### [facility] [address] [place] [address] Ripsaw Matcher: Dioni Merlos MD Albumin/Glob Ratio 1.0 Normal 1.0-2.5 [facility] Comment on above: Performed By: #### C BC, LACTIC #### [facility] [address] [place] [address] Ripsaw Matcher: Dioni Merlos MD Alkaline Phos 67 U/L Normal 35-104 [facility] Comment on above: Performed By: #### C BC, LACTIC #### [facility] [address] [place] [address] Ripsaw Matcher: Dioni Merlos MD ALT [Catalytic activity/Vol] 8 U/L Low 10-35 [facility] Comment on above: Performed By: #### C BC, LACTIC #### [facility] [address] [place] [address] Ripsaw Matcher: Dioni Merlos MD Anion gap [Moles/Vol] 11 mmol/L Normal 9-16 [facility] Comment on above: Performed By: #### C BC, LACTIC #### [facility] [address] [place] [address] Ripsaw Matcher: Dioni Merlos MD AST [Catalytic activity/Vol] 15 U/L Normal 10-35 [facility] Comment on above: Performed By: #### C BC, LACTIC #### [facility] [address] [place] [address] Ripsaw Matcher: Dioni Merlos MD Bilirubin [Mass/Vol] mg/dL Normal 0.00-1.20 [facility] Comment on above: Performed By: #### C BC, LACTIC #### [facility] [address] [place] [address] Ripsaw Matcher: Dioni Merlos MD Calcium [Mass/Vol] 8.8 mg/dL Normal 8.6-10.4 [facility] Comment on above: Performed By: #### C BC, LACTIC #### [facility] [address] [place] [address] Ripsaw Matcher: Dioni Merlos MD Chloride [Moles/Vol] 102 mmol/L Normal 98-107 [facility] Comment on above: Performed By: #### C BC, LACTIC #### [facility] [address] [place] [address] Ripsaw Matcher: Dioni Merlos MD CO2 [Moles/Vol] 30 mmol/L Normal 20-31 [facility] Comment on above: Performed By: #### C BC, LACTIC #### [facility] [address] [place] [address] Ripsaw Matcher: Dioni Merlos MD Creatinine [Mass/Vol] 0.7 mg/dL Normal 0.50-0.90 [facility] Comment on above: Performed By: #### C BC, LACTIC #### [facility] [address] [place] [address] Ripsaw Matcher: Dioni Merlos MD GFR/1.73 sq M.predicted among non-blacks MDRD (S/P/Bld) [Vol rate/Area] mL/min/{1.73_m2} Normal >60 [facility] Comment on above: Result Comment: These results are not intended for use in patients <18 years of age. eGFR results are calculated without a race factor using the 2020 CKD-EPI equation. Careful clinical correlation is recommended, particularly when comparing to results calculated using previous equations. The CKD-EPI equation is less accurate in patients with extremes of muscle mass, extra-renal metabolism of creatine, excessive creatine ingestion, or following therapy that affects renal tubular secretion. Performed By: #### C BC, LACTIC #### [address] [address] Ripsaw Matcher: Dioni Merlos MD Glucose [Mass/Vol] 98 mg/dL Normal 74-99 [facility] Comment on above: Performed By: #### C BC, LACTIC #### [facility] [address] [place] [address] Ripsaw Matcher: Dioni Merlos MD Potassium [Moles/Vol] 3.2 mmol/L Low 3.7-5.3 [facility] Comment on above: Performed By: #### C BC, LACTIC #### [address] [address] Ripsaw Matcher: Dioni Merlos MD Protein [Mass/Vol] 5.9 g/dL Low 6.6-8.7 [facility] Comment on above: Performed By: #### C BC, LACTIC #### [address] [address] Ripsaw Matcher: Dioni Merlos MD Sodium [Moles/Vol] 143 mmol/L Normal 136-145 [facility] Comment on above: Performed By: #### C BC, LACTIC #### [facility] [address] [place] [address] Ripsaw Matcher: Dioni Merlos MD Urea nitrogen [Mass/Vol] 8 mg/dL Normal 6-20 [facility] Comment on above: Performed By: #### C BC, LACTIC #### [facility] [address] [place] [address] Ripsaw Matcher: Dioni Merlos MD HCG Screen, Bloodon 01-24- 24 HCG Screen, Blood Negative Normal NEG [facility] Comment on above: Result Comment: Spec imens with hCG levels near the threshold of the test (25 mIU/mL) may give a negative or indeterminate result. In such cases, another test should be performed with a new specimen in 48-72 hours. If early is suspected clinically in this setting, correlation with quantitative serum b-hCG level is suggested. [facility] has confirmed the use of plasma for this test. This has not been cleared or approved by the U.S. Food and Drug Administration. The FDA has determined that such clearance is not necessary. Performed By: #### C BC, LACTIC #### [facility] [address] [address] Ripsaw Matcher: Dioni Merlos MD Lactic Acidon 01-25-2024 Lactic Acid,Whole Bl 1.5 mmol/L Normal 0.7-2.1 [facility] Comment on above: Performed By: #### C SABINA, LACTIC #### [facility] [address] [place] [address] Ripsaw Matcher: Dioni Merlos MD Lipaseon 01-25-2024 Lipase [Catalytic activity/Vol] 32 U/L Normal 13-60 [facility] Comment on above: Performed By: #### C BC, LACTIC #### [facility] [address] [place] [address] Ripsaw Matcher: Dioni Merlos MD Sedimentation Rateon 024 Sedimentation Rate 10 mm/Hr Normal 0-20 [facility] Comment on above: Performed By: #### C BC, LACTIC #### [facility] [address] [place] [address] Ripsaw Matcher: Dioni Merlos MD XR ACUTE ABD SERIES CHEST 1 VWon 01-25-2024 XR ACUTE ABD SERIES CHEST 1 VW EXAMINATION: TWO XRAY VIEWS OF THE ABDOMEN AND SINGLE XRAY VIEW OF THE CHEST 01/25/2024 2:49 pm COMPARISON: Chest radiograph performed 11/22/2023. HISTORY: ORDERING SYSTEM PROVIDED HISTORY: Abdominal pain TECHNOLOGIST PROVIDED HISTORY: Abdominal pain FINDINGS: The lungs are without consolidation or effusion. There is no pneumothorax. The mediastinal structures are unremarkable. The extrathoracic soft tissues are unremarkable. There is a nonobstructive bowel gas pattern. There is no free air. There are no suspicious calcifications. Residual contrast is seen within the renal collecting system bilaterally. There is no acute osseous abnormality. The surrounding soft tissues are unremarkable. IMPRESSION: No acute cardiopulmonary process. Nonobstructive bowel gas pattern. Interpreted by: Andrew Toure MD Signed by: Andrew Toure MD 01/25/24 Final result Normal [facility] Automated basophil %Ordered By: Imad Asaad on 01-19-2024 Basophils/100 WBC (Bld) 0.3 % Normal . [facility] Comment on above: Performed By: #### C BC #### [facility] [address] [place] [address] Automated basophil countOrde red By: Imad Asaad on 01-19-2024 Basophils (Bld) [#/Vol] 0.0 10*3/uL Normal 0.0-0.2 [facility] Comment on above: Result Comment: PERF ORMED BY: [place] [address] PATHOLOGIST TRIMMER SAWYER RAGHU NAJERA M.D. Performed By: #### C BC #### [address] Automated blood monocyte cou ntOrdered By: Imad Asaad on 01-19-2024 Monocytes (Bld) [#/Vol] 0.7 10*3/uL Normal 0.0-0.8 [facility] Comment on above: Performed By: #### C BC #### [address] Automated eosinophil %Ordere d By: Imad Asaad on 01-19-2024 Eosinophils/100 WBC (Bld) 0.8 % Normal . [facility] Comment on above: Performed By: #### C BC #### [address] Automated eosinophil countOr dered By: Imad Asaad on 01-19-2024 Eosinophils (Bld) [#/Vol] 0.1 10*3/uL Normal 0.0-0.45 [facility] Comment on above: Performed By: #### C BC #### [address] Automated monocyte %Ordered By: Imad Asaad on 01-19-2024 Monocytes/100 WBC (Bld) 8.1 % Normal . [facility] Comment on above: Performed By: #### C BC #### [address] Automated neutrophil %Ordere d By: Imad Asaad on 01-19-2024 Neutrophils/100 WBC (Bld) 82.7 % Normal . [facility] Comment on above: Performed By: #### C BC #### [place] [id number] [place] Calprotectin, Fecalon 2023 Calprotectin, Fecal 1210 High 0-120 [facility] Comment on above: Result Comment: Re sults verified by repeat testing Concentration Interpretation Follow-Up < 5 - 50 ug/g Normal None >50 -120 ug/g Borderline Re-evaluate in 4-6 weeks >120 ug/g Abnormal Repeat as clinically indicated Performed at: - [facility] [id number] Ripsaw Matcher: Danielle Olson MD, Phone: [phone] PERFORMED BY: [place] [address] PATHOLOGIST TRIMMER SAWYER RAGHU NAJERA M.D. Performed By: #### C ALPROTECT #### [facility] , Complete Blood Count Auto Di ffon 01-19-2024 Mean Corpuscular HGB Conc 33.2 g/dL Normal 32.0-35.0 [facility] Comment on above: Performed By: #### C BC #### [address] NRBC% 0.1 /100{WBC} Normal 0-0.5 [facility] Comment on above: Performed By: #### C BC #### [facility] [address] Erythrocyte distribution wid th [Ratio] by Automated countOrdered By: Imad Asaad on 01-19-2024 Erythrocyte distribution width (RBC) [Ratio] 14.5 % Normal 11.9-15.3 [facility] Comment on above: Performed By: #### C BC #### [address] Erythrocytes [#/volume] in B lood by Automated countOrdered By: Imad Asaad on 01-19-2024 RBC (Bld) [#/Vol] 3.84 10*6/uL Normal 3.60-5.00 [facility] Comment on above: Performed By: #### C BC #### [address] Hematocrit [Volume Fraction] of Blood by Automated countOrdered By: Imad Asaad on 01-19-2024 Hematocrit (Bld) [Volume fraction] 35.0 % Normal 34.0-46.4 [facility] Comment on above: Performed By: #### C BC #### [address] Hemoglobin [Mass/volume] in BloodOrdered By: Imad Asaad on 01-19-2024 Hemoglobin (Bld) [Mass/Vol] 11.6 g/dL Low 11.8-15.4 [facility] Comment on above: Performed By: #### C BC #### [address] Leukocytes [#/volume] correc wander for nucleated erythrocytes in Blood by Automated counOrdered By: Imad Asaad on 01-19-2024 WBC corrected for nucl RBC Auto (Bld) [#/Vol] 8.9 10*3/uL 3.8-11.6 [facility] Leukocytes [#/volume] in Blo od by Automated countOrdered By: Imad Asaad on 01-19-2024 WBC (Bld) [#/Vol] 8.9 10*3/uL Normal 3.8-11.6 [facility] Comment on above: Performed By: #### C BC #### [address] Lymphocytes [#/volume] in Bl ood by Automated countOrdered By: Imad Asaad on 01-19-2024 Lymphocytes (Bld) [#/Vol] 0.7 10*3/uL Low 1.00-4.8 [facility] Comment on above: Performed By: #### C BC #### [address] Lymphocytes/100 leukocytes i n Blood by Automated countOrdered By: Imad Asaad on 01-19-2024 Lymphocytes/100 WBC (Bld) 8.1 % Normal . [facility] Comment on above: Performed By: #### C BC #### [address] MCH [Entitic mass] by Automa wander countOrdered By: Imad Asaad on 01-19-2024 MCH (RBC) [Entitic mass] 30.1 pg Normal 24.7-34.3 [facility] Comment on above: Performed By: #### C BC #### [address] MCHC Auto (RBC) [Mass/Vol]Or dered By: Imad Asaad on 01-19-2024 MCHC (RBC) [Mass/Vol] 33.2 g/dL 32.0-35.0 [facility] MCV [Entitic volume] by Auto mated countOrdered By: Imad Asaad on 01-19-2024 MCV (RBC) [Entitic vol] 90.9 fL Normal 80-100 [facility] Comment on above: Performed By: #### C BC #### [address] Neutrophils [#/volume] in Bl ood by Automated countOrdered By: Imad Asaad on 01-19-2024 Neutrophils (Bld) [#/Vol] 7.4 10*3/uL Normal 1.8-7.7 [facility] Comment on above: Performed By: #### C BC #### [address] Nucleated erythrocytes [Pres ence] in Blood by Automated countOrdered By: Imad Asaad on 01-19-2024 Nucleated RBC Auto Ql (Bld) 0.1 /100{WBC} 0-0.5 [facility] Platelet mean volume [Entiti c volume] in Blood by Automated countOrdered By: Imad Asaad on 01-19-2024 Platelet mean volume (Bld) [Entitic vol] 7.7 fL Normal 6.3-10.7 [facility] Comment on above: Performed By: #### C BC #### [address] Platelets [#/volume] in Bloo d by Automated countOrdered By: Imad Asaad on 01-19-2024 Platelets (Bld) [#/Vol] 351 10*3/uL Normal 150-450 [facility] Comment on above: Performed By: #### C BC #### [address] ABDOMEN PELVIS W IV CONTR Denise 11-23-2023 CT ABDOMEN PELVIS W IV CONTRAST EXAMINATION: CT OF THE ABDOMEN AND PELVIS WITH CONTRAST 11/22/2023 5:59 am TECHNIQUE: CT of the abdomen and pelvis was performed with the administration of intravenous contrast. Multiplanar reformatted images are provided for review. Automated exposure control, iterative reconstruction, and/or weight based adjustment of the mA/kV was utilized to reduce the radiation dose to as low as reasonably achievable. COMPARISON: 12/12/2022 HISTORY: ORDERING SYSTEM PROVIDED HISTORY: hx of crohns, abdominal pain and vomiting TECHNOLOGIST PROVIDED HISTORY: hx of crohns, abdominal pain and vomiting Decision Support Exception - unselect if not a suspected or confirmed emergency medical condition->Emergency Medical Condition (MA) FINDINGS: Lower Chest: Visualized portion of the lower chest demonstrates no acute abnormality. Organs: Focal fat noted near the falciform ligament. Liver enhances normally without evidence of intrahepatic biliary ductal dilatation. The gallbladder is unremarkable. The portal vein is patent. The spleen, pancreas and adrenal glands are unremarkable. The kidneys enhance symmetrically without evidence of hydronephrosis. GI/Bowel: Stomach and duodenal sweep demonstrate no acute abnormality. There is evidence of prior postsurgical changes noted at the ileocecal valve possibly secondary to prior terminal ileal resection. There is diffuse circumferential wall thickening noted of the distal ileum with surrounding inflammatory changes. The inflammatory changes involve the majority of the remaining ileum. Proximal to this there is dilatation of the small bowel likely representing a partial small bowel obstruction. The degree of inflammatory changes and amount of small bowel involved has increased since prior 12/12/2022 CT. Findings are suspicious for inflammatory bowel disease such as Crohn's disease. No evidence of abscess. There is hyperemia of the mesentery with mesenteric ascites present. The colon demonstrates no focal wall thickening or colonic obstruction. Pelvis: The uterus and adnexa are unremarkable. The bladder is unremarkable. Peritoneum/Retroperi toneum: No free air. There is mild abdominal and pelvic ascites. No evidence of lymphadenopathy. Aorta is normal in caliber. Bones/Soft Tissues: No acute abnormality of the visualized osseous structures. IMPRESSION: Diffuse circumferential wall thickening of the distal ileum with surrounding inflammatory changes. The degree of inflammatory changes and amount of small bowel involved has increased since prior 12/12/2022 CT. This causes low-grade partial small bowel obstruction of the proximal small bowel. Findings suggest a chronic inflammatory bowel disease such as Crohn's disease. No evidence of abscess. Mild abdominal and pelvic ascites likely inflammatory secondary to the bowel inflammation. Interpreted by: Juan José Mena MD Signed by: Juan José Mena MD 11/23/23 Final result Normal [facility] C-Reactive Proteinon 024 CRP [Mass/Vol] mg/L Normal 0.0-5.0 [facility] Comment on above: Performed By: #### C RP, HCG, LIP, TROPI, CDP, CP #### [facility] [place] [address] Ripsaw Matcher: Dioni Merlos MD CBC with Auto Differentialon 11-22-2023 Basophils (Bld) [#/Vol] 0.06 10*3/uL [facility] Basophils/100 WBC (Bld) 0 % 0 - 2 % [facility] Eosinophils (Bld) [#/Vol] [facility] Eosinophils/100 WBC (Bld) 0 % Low 1 - 4 % [facility] Erythrocyte distribution width (RBC) [Ratio] 14.4 % 11.8 - 14.4 % [facility] Hematocrit (Bld) [Volume fraction] 41.0 % 36.3 - 47.1 % [facility] Hemoglobin (Bld) [Mass/Vol] 13.7 g/dL 11.9 - 15.1 g/dL [facility] Immature granulocytes (Bld) [#/Vol] 0.08 10*3/uL [facility] Immature granulocytes/100 WBC (Bld) 0 % 0 [facility] Interpretation and review of laboratory results Abnormal [facility] Lymphocytes/100 WBC (Bld) 8 % Low 24 - 43 % [facility] Lymphocytes/100 WBC (Bld) 1.69 % [facility] MCH (RBC) [Entitic mass] 30.7 pg 25.2 - 33.5 pg [facility] MCHC (RBC) [Mass/Vol] 33.4 g/dL 28.4 - 34.8 g/dL [facility] MCV (RBC) [Entitic vol] 91.9 fL 82.6 - 102.9 fL [facility] Monocytes/100 WBC (Bld) 5 % 3 - 12 % [facility] Monocytes/100 WBC (Bld) 1.02 % [facility] Neutrophils/100 WBC (Bld) 87 % High 36 - 65 % [facility] Nucleated RBC/100 WBC (Bld) [Ratio] 0.0 % 0.0 per 100 WBC [facility] Platelet mean volume (Bld) [Entitic vol] 9.9 fL 8.1 - 13.5 fL [facility] Platelets (Bld) [#/Vol] 408 10*3/uL [facility] RBC (Bld) [#/Vol] 4.46 10*6/uL 3.95 - 5.11 m/uL [facility] Segmented neutrophils/100 WBC (Bld) 17.65 % High [facility] WBC other (Bld) [#/Vol] 20.5 High [facility] CBC with Diffon 05-20-2024 Abs. Basophil 0.06 k/uL Normal 0.00-0.20 [facility] Comment on above: Performed By: #### C RP, HCG, LIP, TROPI, CDP, CP #### [address] [address] Ripsaw Matcher: Dioni Merlos MD Abs. Eosinophil <0.03 Normal 0.00-0.44 [facility] Comment on above: Performed By: #### C RP, HCG, LIP, TROPI, CDP, CP #### [address] [address] Ripsaw Matcher: Dioni Merlos MD Abs.Imm.Granulocyte 0.08 k/uL Normal 0.00-0.30 [facility] Comment on above: Performed By: #### C RP, HCG, LIP, TROPI, CDP, CP #### [place] [address] Ripsaw Matcher: Dioni Merlos MD Abs.Neutrophil (Seg) 17.65 k/uL High 1.50-8.10 [facility] Comment on above: Performed By: #### C RP, HCG, LIP, TROPI, CDP, CP #### [address] [address] Ripsaw Matcher: Dioni Merlos MD Basophils/100 WBC (Bld) 0 % Normal 0-2 [facility] Comment on above: Performed By: #### C RP, HCG, LIP, TROPI, CDP, CP #### [address] [address] Ripsaw Matcher: Dioni Merlos MD Eosinophils/100 WBC (Bld) 0 % Low 1-4 [facility] Comment on above: Performed By: #### C RP, HCG, LIP, TROPI, CDP, CP #### [address] [address] Ripsaw Matcher: Dioni Merlos MD Erythrocyte distribution width (RBC) [Ratio] 14.4 % Normal 11.8-14.4 [facility] Comment on above: Performed By: #### C RP, HCG, LIP, TROPI, CDP, CP #### [address] [address] Ripsaw Matcher: Dioni Merlos MD Hematocrit (Bld) [Volume fraction] 41.0 % Normal 36.3-47.1 [facility] Comment on above: Performed By: #### C RP, HCG, LIP, TROPI, CDP, CP #### [place] [address] Ripsaw Matcher: Dioni Merlos MD Hemoglobin (Bld) [Mass/Vol] 13.7 g/dL Normal 11.9-15.1 [facility] Comment on above: Performed By: #### C RP, HCG, LIP, TROPI, CDP, CP #### [place] [address] Ripsaw Matcher: Dioni Merlos MD Immature granulocytes/100 WBC (Bld) 0 % Normal 0 [facility] Comment on above: Performed By: #### C RP, HCG, LIP, TROPI, CDP, CP #### [place] [address] Ripsaw Matcher: Dioni Merlos MD Lymphocytes (Bld) [#/Vol] 1.69 10*3/uL Normal 1.10-3.70 [facility] Comment on above: Performed By: #### C RP, HCG, LIP, TROPI, CDP, CP #### [address] [address] Ripsaw Matcher: Dioni Merlos MD Lymphocytes/100 WBC (Bld) 8 % Low 24-43 [facility] Comment on above: Performed By: #### C RP, HCG, LIP, TROPI, CDP, CP #### [address] [address] Ripsaw Matcher: Dioni Merlos MD MCH (RBC) [Entitic mass] 30.7 pg Normal 25.2-33.5 [facility] Comment on above: Performed By: #### C RP, HCG, LIP, TROPI, CDP, CP #### [address] [address] Ripsaw Matcher: Dioni Merlos MD MCHC (RBC) [Mass/Vol] 33.4 g/dL Normal 28.4-34.8 [facility] Comment on above: Performed By: #### C RP, HCG, LIP, TROPI, CDP, CP #### [address] [address] Ripsaw Matcher: Dioni Merlos MD MCV (RBC) [Entitic vol] 91.9 fL Normal 82.6-102.9 [facility] Comment on above: Performed By: #### C RP, HCG, LIP, TROPI, CDP, CP #### [address] [address] Ripsaw Matcher: Dioni Merlos MD Monocytes (Bld) [#/Vol] 1.02 10*3/uL Normal 0.10-1.20 [facility] Comment on above: Performed By: #### C RP, HCG, LIP, TROPI, CDP, CP #### [address] [address] Ripsaw Matcher: Dioni Merlos MD Monocytes/100 WBC (Bld) 5 % Normal 3-12 [facility] Comment on above: Performed By: #### C RP, HCG, LIP, TROPI, CDP, CP #### [address] [address] Ripsaw Matcher: Dioni Merlos MD Neutrophil (Seg) 87 % High 36-65 [facility] Comment on above: Performed By: #### C RP, HCG, LIP, TROPI, CDP, CP #### [address] [address] Ripsaw Matcher: Dioni Merlos MD NRBC Automated 0.0 per 100 WBC Normal 0.0 [facility] Comment on above: Performed By: #### C RP, HCG, LIP, TROPI, CDP, CP #### [address] [address] Ripsaw Matcher: Dioni Merlos MD Platelet mean volume (Bld) [Entitic vol] 9.9 fL Normal 8.1-13.5 [facility] Comment on above: Performed By: #### C RP, HCG, LIP, TROPI, CDP, CP #### [address] [address] Ripsaw Matcher: Dioni Merlos MD Platelets (Bld) [#/Vol] 408 10*3/uL Normal 138-453 [facility] Comment on above: Performed By: #### C RP, HCG, LIP, TROPI, CDP, CP #### [address] [address] Ripsaw Matcher: Dioni Merlos MD RBC (Bld) [#/Vol] 4.46 10*6/uL Normal 3.95-5.11 [facility] Comment on above: Performed By: #### C RP, HCG, LIP, TROPI, CDP, CP #### [address] [address] Ripsaw Matcher: Dioni Merlos MD WBC (Bld) [#/Vol] 20.5 10*3/uL High 3.5-11.3 [facility] Comment on above: Performed By: #### C RP, HCG, LIP, TROPI, CDP, CP #### [address] [address] Ripsaw Matcher: Dioni Merlos MD Comp Metabolic Profon 2023 Albumin [Mass/Vol] 4.1 g/dL Normal 3.5-5.2 [facility] Comment on above: Performed By: #### C RP, HCG, LIP, TROPI, CDP, CP #### [address] [address] Ripsaw Matcher: Dioni Merlos MD Albumin/Glob Ratio 1.0 Normal 1.0-2.5 [facility] Comment on above: Performed By: #### C RP, HCG, LIP, TROPI, CDP, CP #### [address] [address] Ripsaw Matcher: Dioni Merlos MD Alkaline Phos 59 U/L Normal 35-104 [facility] Comment on above: Performed By: #### C RP, HCG, LIP, TROPI, CDP, CP #### [address] [address] Ripsaw Matcher: Dioni Merlos MD ALT [Catalytic activity/Vol] 13 U/L Normal 10-35 [facility] Comment on above: Performed By: #### C RP, HCG, LIP, TROPI, CDP, CP #### [address] [address] Ripsaw Matcher: Dioni Merlos MD Anion gap [Moles/Vol] 14 mmol/L Normal 9-16 [facility] Comment on above: Performed By: #### C RP, HCG, LIP, TROPI, CDP, CP #### [address] [address] Ripsaw Matcher: Dioni Merlos MD AST [Catalytic activity/Vol] 26 U/L Normal 10-35 [facility] Comment on above: Performed By: #### C RP, HCG, LIP, TROPI, CDP, CP #### [address] [address] Ripsaw Matcher: Dioni Merlos MD Bilirubin [Mass/Vol] 0.2 mg/dL Normal 0.00-1.20 [facility] Comment on above: Performed By: #### C RP, HCG, LIP, TROPI, CDP, CP #### [address] [address] Ripsaw Matcher: Dioni Merlos MD Calcium [Mass/Vol] 9.3 mg/dL Normal 8.6-10.4 [facility] Comment on above: Performed By: #### C RP, HCG, LIP, TROPI, CDP, CP #### [address] [address] Ripsaw Matcher: Dioni Merlos MD Chloride [Moles/Vol] 102 mmol/L Normal 98-107 [facility] Comment on above: Performed By: #### C RP, HCG, LIP, TROPI, CDP, CP #### [address] [address] Ripsaw Matcher: Dioni Merlos MD CO2 [Moles/Vol] 23 mmol/L Normal 20-31 [facility] Comment on above: Performed By: #### C RP, HCG, LIP, TROPI, CDP, CP #### [address] [address] Ripsaw Matcher: Dioni Merlos MD Creatinine [Mass/Vol] 0.6 mg/dL Normal 0.50-0.90 [facility] Comment on above: Performed By: #### C RP, HCG, LIP, TROPI, CDP, CP #### [address] [address] Ripsaw Matcher: Dioni Merlos MD GFR/1.73 sq M.predicted among non-blacks MDRD (S/P/Bld) [Vol rate/Area] mL/min/{1.73_m2} Normal >60 [facility] Comment on above: Result Comment: These results are not intended for use in patients <18 years of age. eGFR results are calculated without a race factor using the 2020 CKD-EPI equation. Careful clinical correlation is recommended, particularly when comparing to results calculated using previous equations. The CKD-EPI equation is less accurate in patients with extremes of muscle mass, extra-renal metabolism of creatine, excessive creatine ingestion, or following therapy that affects renal tubular secretion. Performed By: #### C RP, HCG, LIP, TROPI, CDP, CP #### [facility] [address] [place] [address] Ripsaw Matcher: Dioni Merlos MD Glucose [Mass/Vol] 195 mg/dL High 74-99 [facility] Comment on above: Performed By: #### C RP, HCG, LIP, TROPI, CDP, CP #### [facility] [address] [place] [address] Ripsaw Matcher: Dioni Merlos MD Potassium [Moles/Vol] 3.8 mmol/L Normal 3.7-5.3 [facility] Comment on above: Performed By: #### C RP, HCG, LIP, TROPI, CDP, CP #### [facility] [address] [place] [address] Ripsaw Matcher: Dioni Merlos MD Protein [Mass/Vol] 7.0 g/dL Normal 6.6-8.7 [facility] Comment on above: Performed By: #### C RP, HCG, LIP, TROPI, CDP, CP #### [facility] [address] [place] [address] Ripsaw Matcher: Dioni Merlos MD Sodium [Moles/Vol] 139 mmol/L Normal 136-145 [facility] Comment on above: Performed By: #### C RP, HCG, LIP, TROPI, CDP, CP #### [facility] [address] [place] [address] Ripsaw Matcher: Dioni Merlos MD Urea nitrogen [Mass/Vol] 9 mg/dL Normal 6-20 [facility] Comment on above: Performed By: #### C RP, HCG, LIP, TROPI, CDP, CP #### [facility] [address] [place] [address] Ripsaw Matcher: Dioni Merlos MD Comprehensive Metabolic [facility] 11-22-2023 Albumin [Mass/Vol] 4.1 g/dL 3.5 - 5.2 g/dL [facility] Albumin/Globulin [Mass ratio] 1.0 {ratio} 1.0 - 2.5 [facility] ALP [Catalytic activity/Vol] 59 U/L 35 - 104 U/L [facility] ALT [Catalytic activity/Vol] 13 U/L 10 - 35 U/L [facility] Anion gap [Moles/Vol] 14 mmol/L 9 - 16 mmol/L [facility] AST [Catalytic activity/Vol] 26 U/L 10 - 35 U/L [facility] Bilirubin [Mass/Vol] 0.2 mg/dL 0.00 - 1.20 mg/ dL [facility] Calcium [Mass/Vol] 9.3 mg/dL 8.6 - 10.4 mg/dL [facility] Chloride [Moles/Vol] 102 mmol/L 98 - 107 mmol/L [facility] CO2 [Moles/Vol] 23 mmol/L 20 - 31 mmol/L [facility] Creatinine [Mass/Vol] 0.6 mg/dL 0.50 - 0.90 mg/dL [facility] Est, Glom Filt Rate - [facility] Comment on above: These results are not intended for use in patients <18 years of age. eGFR results are calculated without a race factor using the 2020 CKD-EPI equation. Careful clinical correlation is recommended, particularly when comparing to results calculated using previous equations. The CKD-EPI equation is less accurate in patients with extremes of muscle mass, extra-renal metabolism of creatine, excessive creatine ingestion, or following therapy that affects renal tubular secretion. Glucose [Mass/Vol] 195 mg/dL High 74 - 99 mg/dL [facility] Interpretation and review of laboratory results Abnormal [facility] Potassium [Moles/Vol] 3.8 mmol/L 3.7 - 5.3 mmol/L [facility] Protein [Mass/Vol] 7.0 g/dL 6.6 - 8.7 g/dL [facility] Sodium [Moles/Vol] 139 mmol/L 136 - 145 mmol/L [facility] Urea nitrogen [Mass/Vol] 9 mg/dL 6 - 20 mg/dL [facility] HCG Qualitative, Serumon HCG ( test) Ql Negative NEGATIVE [facility] Comment on above: Specimens with hCG l evels near the threshold of the test (25 mIU/mL) may give a negative or indeterminate result. In such cases, another test should be performed with a new specimen in 48-72 hours. If early is suspected clinically in this setting, correlation with quantitative serum b-hCG level is suggested. [employer] has confirmed the use of plasma for this test. This has not been cleared or approved by the U.S. Food and Drug Administration. The FDA has determined that such clearance is not necessary. [facility] HCG Screen, Bloodon 11-22-19 24 HCG Screen, Blood Negative Normal NEG [facility] Comment on above: Result Comment: Spec imens with hCG levels near the threshold of the test (25 mIU/mL) may give a negative or indeterminate result. In such cases, another test should be performed with a new specimen in 48-72 hours. If early is suspected clinically in this setting, correlation with quantitative serum b-hCG level is suggested. [employer] has confirmed the use of plasma for this test. This has not been cleared or approved by the U.S. Food and Drug Administration. The FDA has determined that such clearance is not necessary. Performed By: #### C RP, HCG, LIP, TROPI, CDP, CP #### [facility] [place] [address] Ripsaw Matcher: Dioni Merlos MD Lipaseon 11-22-2023 Lipase [Catalytic activity/Vol] 37 U/L 13 - 60 U/L [facility] Lipase [Catalytic activity/Vol] 37 U/L Normal 13-60 [facility] Comment on above: Performed By: #### C RP, HCG, LIP, TROPI, CDP, CP #### [facility] [address] [place], [place] [id number] Ripsaw Matcher: Dioni Merlos MD No Panel Informationon 11-21 [facility] [employer] Portable XR Chest AP single viewon 11-22-2023 No acute process. [facility] RIS CONSOLIDATED EXAMINATION: ONE XRAY VIEW OF THE CHEST 11/22/2023 5:11 am COMPARISON: None. HISTORY: ORDERING SYSTEM PROVIDED HISTORY: vomit TECHNOLOGIST PROVIDED HISTORY: vomit Reason for Exam: upr,cp,emesis FINDINGS: The lungs are without acute focal process. There is no effusion or pneumothorax. The cardiomediastinal silhouette is without acute process. The osseous structures are without acute process. [facility] CONSOLIDATED Juan José Mena MD - 11/22/2023 EXAMINATION: ONE XRAY VIEW OF THE CHEST 11/22/2023 5:11 am COMPARISON: None. HISTORY: ORDERING SYSTEM PROVIDED HISTORY: vomit TECHNOLOGIST PROVIDED HISTORY: vomit Reason for Exam: upr,cp,emesis FINDINGS: The lungs are without acute focal process. There is no effusion or pneumothorax. The cardiomediastinal silhouette is without acute process. The osseous structures are without acute process. IMPRESSION: No acute process. [facility] Radiology Study observation (narrative) [facility] Troponinon 11-22-2023 Troponin I.cardiac High sensitivity method [Mass/Vol] ng/L 0 - 14 ng/L [facility] Comment on above: High Sensitivity Tro ponin values cannot be compared with other Troponin methodologies. Troponin, High Sens <6 Normal 0-14 [facility] Comment on above: Result Comment: High Sensitivity Troponin values cannot be compared with other Troponin methodologies. Performed By: #### C RP, HCG, LIP, TROPI, CDP, CP #### [facility] [address] [place], [place] [id number] Ripsaw Matcher: Dioni Merlos MD XR CHEST PORTABLEon 05-20-20 24 XR CHEST PORTABLE EXAMINATION: ONE XRAY VIEW OF THE CHEST 11/22/2023 5:11 am COMPARISON: None. HISTORY: ORDERING SYSTEM PROVIDED HISTORY: vomit TECHNOLOGIST PROVIDED HISTORY: vomit Reason for Exam: upr,cp,emesis FINDINGS: The lungs are without acute focal process. There is no effusion or pneumothorax. The cardiomediastinal silhouette is without acute process. The osseous structures are without acute process. IMPRESSION: No acute process. Interpreted by: Juan José Mena MD Signed by: Juan José Mena MD 11/22/23 Final result Normal [facility] Urinalysis - AUTOMATEDon Appearance (U) clear [employer] Other Bilirubin Ql (U) Negative [employer] Other Color (U) yellow [employer] Other Glucose Ql (U) Negative [employer] Other Hemoglobin Ql (U) large [employer] Other Ketones Ql (U) Negative [employer] Other Leukocyte esterase Test strip Ql (U) moderate [employer] Other Nitrite Ql (U) Negative [employer] Other pH (U) 7.0 [pH] [employer] Other Protein Ql (U) Negative [employer] Other Specific gravity (U) [Rel density] 1.010 [employer] Other Urobilinogen (U) [Mass/Vol] 0.2 mg/dL [employer] Other Urinalysis - AUTOMATED [employer] Other Urine culture routineOrdered By: Dalia Apple on 05-05-2023 Bacteria identified Cx Nom (U) Escherichia coli [facility] Quick Strepon 02-23-2023 S. pyogenes Org specific cx Ql (Throat) Negative [facility] [employer] Other Quick Strep [facility] [employer] Other Amphetamine Screen Ql (U)Ord ered By: Kevin Gunn on 02-16-2023 Amphetamines Ql (U) Negative Negative [facility] Barbiturates [Presence] in U rine by Screen methodOrdered By: Kevin Gunn on 02-16-2023 Barbiturates Screen Ql (U) Negative Negative [facility] Benzodiazepines Screen Ql (U )Ordered By: Kevin Gunn on 02-16-2023 Benzodiazepines Ql (U) Negative Negative [facility] Benzoylecgonine [Presence] i n Urine by Screen methodOrdered By: Kevin Gunn on 02-16-2023 Benzoylecgonine Screen Ql (U) Negative Negative [facility] Cannabinoids [Presence] in U rine by Screen methodOrdered By: Kevin Gunn on 02-16-2023 Cannabinoids Screen Ql (U) Positive Negative [facility] Comment on above: These are unconfirme d results and should not be used for legal purposes. Drug Cut-Off Concentration: AMPH 1000 ng/mL BEN 200 ng/mL WILLEM 200 ng/mL COCM 300 ng/mL OP 300 ng/mL PCP 25 ng/mL THC 20 ng/mL HCG ( test) IA.rapi d Ql (U)Ordered By: Kevin Gunn on 02-16-2023 HCG ( test) Ql (U) Negative [facility] Opiates [Presence] in Urine by Screen methodOrdered By: Kevin Gunn on 02-16-2023 Opiates Screen Ql (U) Negative Negative [facility] Phencyclidine Screen Ql (U)O rdered By: Kevin Gunn on 02-16-2023 Phencyclidine Ql (U) Negative Negative [facility] Amphetamine Screen Ql (U)Ord ered By: Jennifer Brody on 12-31-2022 Amphetamines Ql (U) Negative Negative [facility] Barbiturates [Presence] in U rine by Screen methodOrdered By: Jennifer Brody on 12-31-2022 Barbiturates Screen Ql (U) Negative Negative [facility] Benzodiazepines Screen Ql (U )Ordered By: Imad Asaad on 12-31-2022 Benzodiazepines Ql (U) Negative Negative [facility] Benzoylecgonine [Presence] i n Urine by Screen methodOrdered By: Imad Asaad on 12-31-2022 Benzoylecgonine Screen Ql (U) Negative Negative [facility] Cannabinoids [Presence] in U rine by Screen methodOrdered By: Imad Asaad on 12-31-2022 Cannabinoids Screen Ql (U) Positive Negative [facility] Comment on above: These are unconfirme d results and should not be used for legal purposes. Drug Cut-Off Concentration: AMPH 1000 ng/mL BEN 200 ng/mL WILLEM 200 ng/mL COCM 300 ng/mL OP 300 ng/mL PCP 25 ng/mL THC 20 ng/mL HCG ( test) IA.rapi d Ql (U)Ordered By: Imad Asaad on 12-31-2022 HCG ( test) Ql (U) Negative [facility] Opiates [Presence] in Urine by Screen methodOrdered By: Imad Asaad on 12-31-2022 Opiates Screen Ql (U) Negative Negative [facility] Phencyclidine Screen Ql (U)O rdered By: Imad Asaad on 12-31-2022 Phencyclidine Ql (U) Negative Negative [facility] Alanine aminotransferase [En zymatic activity/volume] in Serum or PlasmaOrdered By: Imad Asaad on 12-30-2022 ALT [Catalytic activity/Vol] 16 U/L 7-52 [facility] Albumin [Mass/volume] in Ser um or Plasma by Bromocresol green (BCG) dye binding methoOrdered By: Imad Asaad on 12-30-2022 Albumin BCG dye [Mass/Vol] 3.9 g/dL 3.5-5.7 [facility] Alkaline phosphatase [Enzyma tic activity/volume] in Serum or PlasmaOrdered By: Imad Asaad on 12-30-2022 ALP [Catalytic activity/Vol] 44 U/L 34-104 [facility] Aspartate aminotransferase [ Enzymatic activity/volume] in Serum or PlasmaOrdered By: Imad Asaad on 12-30-2022 AST [Catalytic activity/Vol] 13 U/L 13-39 [facility] Basophils Auto (Bld) [#/Vol] Ordered By: Imad Asaad on 12-30-2022 Basophils (Bld) [#/Vol] 0.1 10*3/uL 0.0-0.2 [facility] Basophils/100 WBC Auto (Bld) Ordered By: Imad Asaad on 12-30-2022 Basophils/100 WBC (Bld) 1.1 % . [facility] Bilirubin.direct [Mass/volum e] in Serum or PlasmaOrdered By: [facility] on 12-30-2022 Bilirubin.direct [Mass/Vol] 0.10 mg/dL 0.03-0.18 [facility] Bilirubin.total [Mass/volume ] in Serum or PlasmaOrdered By: [facility] on 12-30-2022 Bilirubin [Mass/Vol] 0.4 mg/dL 0.3-1.0 [facility] Blood Mycobacterium tubercul osis tuberculin stimulated gamma interferon detectionOrdered By: [facility] on 12-30-2022 M. tuberculosis tuberculin stim IFN-g Ql (Bld) See comment . [facility] Comment on above: QuantiFERON-TB Gold Plus is a qualitative indirect test forM tuberculosis infection (including disease) and isintended for use in conjunction with risk assessment,radiography, and other medical and diagnostic evaluations.The QuantiFERON-TB Gold Plus result is determined bysubtracting the Nil value from either TB antigen (Ag)value. The Mitogen tube serves as a control for the test. M. tuberculosis tuberculin stim IFN-g Ql (Bld) 0.13 [IU]/mL . [facility] M. tuberculosis tuberculin stim IFN-g Ql (Bld) 0.10 [IU]/mL . [facility] Blood mitogen stimulated zenaida ma interferon measurement (units/volume)Ordered By: [facility] on 12-30-2022 Mitogen stimulated gamma interferon Qn (Bld) >10.00 [IU]/mL . [facility] C reactive protein [Mass/vol ume] in Serum or PlasmaOrdered By: [facility] on 12-30-2022 CRP [Mass/Vol] < 0.5 mg/dL 0.0-0.5 [facility] Calprotectin [Mass/mass] in StoolOrdered By: Jennifer Brody on 12-30-2022 Calprotectin (Stl) [Mass/Mass] 230 ug/g 0-120 [facility] Comment on above: Concentration Interp retation Follow-Up< 5 - 50 ug/g Normal None>50 -120 ug/g Borderline Re-evaluate in 4-6 weeks >120 ug/g Abnormal Repeat as clinically indicatedPerformed at: - [facility] [address] [id number] Director: Danielle Olson MD, Phone: [phone] Eosinophils Auto (Bld) [#/Vo l]Ordered By: [facility] on 12-30-2022 Eosinophils (Bld) [#/Vol] 0.1 10*3/uL 0.0-0.45 [facility] Eosinophils/100 WBC Auto (Bl d)Ordered [facility] Eosinophils/100 WBC (Bld) 0.8 % . [facility] Erythrocyte distribution wid th Auto (RBC) [Ratio]Ordered By: [facility] on 12-30-2022 Erythrocyte distribution width (RBC) [Ratio] 15.3 % 11.9-15.3 [facility] Globulin Calc (S) [Mass/Vol] Ordered By: [facility] on 12-30-2022 Globulin (S) [Mass/Vol] 2.0 g/dL [facility] Hematocrit Auto (Bld) [Volum e fraction]Ordered By: [facility] Hematocrit (Bld) [Volume fraction] 39.4 % 34.0-46.4 [facility] Hemoglobin [Mass/volume] in BloodOrdered By: [facility] 12-30-[facility]22 Hemoglobin (Bld) [Mass/Vol] 13.1 g/dL 11.8-15.4 [facility] Hepatitis B virus surface Ag [Presence] in Serum or Plasma by ImmunoassayOrdered By: Jennifer Brody on 12-30-2022 HBV surface Ag IA Ql Negative Negative [facility] Leukocytes [#/volume] correc wander for nucleated erythrocytes in Blood by Automated counOrdered By: Imad Asaad on 12-30-2022 WBC corrected for nucl RBC Auto (Bld) [#/Vol] 8.1 10*3/uL 3.8-11.6 [facility] Lymphocytes Auto (Bld) [#/Vo l]Ordered By: Imad Asaad on 12-30-2022 Lymphocytes (Bld) [#/Vol] 1.9 10*3/uL 1.00-4.8 [facility] Lymphocytes/100 WBC Auto (Bl d)Ordered By: Imad Asaad on 12-30-2022 Lymphocytes/100 WBC (Bld) 22.9 % . [facility] MCH Auto (RBC) [Entitic mass ]Ordered By: ad Asaad on 12-30-2022 MCH (RBC) [Entitic mass] 30.9 pg 24.7-34.3 [facility] MCHC Auto (RBC) [Mass/Vol]Or dered By: Imad Asaad on 12-30-2022 MCHC (RBC) [Mass/Vol] 33.2 g/dL 32.0-35.0 [facility] MCV Auto (RBC) [Entitic vol] Ordered By: ad Asaad on 12-30-2022 MCV (RBC) [Entitic vol] 93.0 fL 80-100 [facility] Monocytes Auto (Bld) [#/Vol] Ordered By: ad Asaad on 12-30-2022 Monocytes (Bld) [#/Vol] 0.5 10*3/uL 0.0-0.8 [facility] Monocytes/100 WBC Auto (Bld) Ordered By: ad Asaad on 12-30-2022 Monocytes/100 WBC (Bld) 5.7 % . [facility] Mycobacterium tuberculosis s timulated gamma interferon [Interpretation] in Blood QualOrdered By: Imad Asaad on 12-30-2022 M. tuberculosis stim IFN-g Ql (Bld) [Interp] Negative Negative [facility] Comment on above: No response to M tub erculosis antigens detected.Infection with M tuberculosis is unlikely, but high riskindividuals should be considered for additional testing(ATS/IDSA/CDC Clinical Practice Guidelines, 2017). Thereference range is an Antigen minus Nil result of <0.35IU/mL.The specimen received for QuantiFERON testing was incubatedby the ordering institution. Specific procedures outlinedin our Directory of Services and in the package insert forthe QuantiFERON Gold (In Tube) test must be followed toenable for proper stimulation of cells for the productionof interferon gamma. Chemiluminescence immunoassaymethodologyPerformed at: [employer] [facility] [address] [id number] Director: Derik Decker PhD, Phone: [phone] Neutrophils Auto (Bld) [#/Vo l]Ordered By: Imad Asaad on 12-30-2022 Neutrophils (Bld) [#/Vol] 5.7 10*3/uL 1.8-7.7 [facility] Neutrophils/100 WBC Auto (Bl d)Ordered By: Imad Asaad on 12-30-2022 Neutrophils/100 WBC (Bld) 69.5 % . [facility] No Panel InformationOrdered By: Imad Asaad on 12-30-2022 Hepatitis B Core Total Antibody Negative Negative [facility] Comment on above: Performed at: [employer] [facility] [employer] [employer] [facility] [address] [id number] Director: Derik Decker PhD, Phone: [phone] Nucleated erythrocytes [Pres ence] in Blood by Automated countOrdered By: Imad Asaad on 12-30-2022 Nucleated RBC Auto Ql (Bld) 0.1 /100{WBC} 0-0.5 [facility] Platelet mean volume Auto (B ld) [Entitic vol]Ordered By: Imad Asaad on 12-30-2022 Platelet mean volume (Bld) [Entitic vol] 7.7 fL 6.3-10.7 [facility] Platelets Auto (Bld) [#/Vol] Ordered By: Imad Asaad on 12-30-2022 Platelets (Bld) [#/Vol] 261 10*3/uL 150-450 [facility] Protein [Mass/volume] in Ser um or PlasmaOrdered By: Imad Asaad on 12-30-2022 Protein [Mass/Vol] 5.9 g/dL 6.4-8.9 [facility] RBC Auto (Bld) [#/Vol]Ordere d By: [facility] on 12-30-2022 RBC (Bld) [#/Vol] 4.23 10*6/uL 3.60-5.00 [facility] Serum hepatitis B virus surf neil antibody detectionOrdered By: [facility] 12-30[facility]2022 HBV surface Ab Ql (S) Non-Reactive . [facility] Comment on above: Non Reactive: Incons istent with immunity, less than 10 mIU/mL Reactive: Consistent with immunity, greater than 9.9 mIU/mL Serum or plasma albumin/glob ulin mass ratioOrdered By: [facility] on 12-30-2022 Albumin/Globulin [Mass ratio] 2.0 {ratio} [facility] Serum or plasma non-glucuron idated bilirubin measurement (mass/volume)Ordered By: [facility] on 12-30-2022 Bilirubin.indirect [Mass/Vol] 0.3 mg/dL [facility] WBC Auto (Bld) [#/Vol]Ordere d By: [facility] on 12-30-2022 WBC (Bld) [#/Vol] 8.1 10*3/uL 3.8-11.6 [facility] Whole blood measurement of M ycobacterium tuberculosis stimulated gamma interferon relOrdered By[facility] M. tuberculosis stim IFN-g by CD4+ CD8+ T-cells corrected for background Qn (Bld) 0.13 [IU]/mL . [facility] Alanine aminotransferase [En zymatic activity/volume] in Serum or PlasmaOrdered By: Dalia Apple on 12-14-2022 ALT [Catalytic activity/Vol] 23 U/L 7-52 [facility] Albumin [Mass/volume] in Ser um or Plasma by Bromocresol green (BCG) dye binding methoOrdered By: Dalia Apple on 12-14-2022 Albumin BCG dye [Mass/Vol] 4.4 g/dL 3.5-5.7 [facility] Alkaline phosphatase [Enzyma tic activity/volume] in Serum or PlasmaOrdered By: Dalia Apple on 12-14-2022 ALP [Catalytic activity/Vol] 44 U/L 34-104 [facility] Aspartate aminotransferase [ Enzymatic activity/volume] in Serum or PlasmaOrdered By: Dalia Apple on 12-14-2022 AST [Catalytic activity/Vol] 16 U/L 13-39 [facility] Basophils Auto (Bld) [#/Vol] Ordered By: Dalia Apple on 12-14-2022 Basophils (Bld) [#/Vol] 0.1 10*3/uL 0.0-0.2 [facility] Basophils/100 WBC Auto (Bld) Ordered By: Dalia Apple on 12-14-2022 Basophils/100 WBC (Bld) 0.5 % . [facility] Bilirubin.total [Mass/volume ] in Serum or PlasmaOrdered By: Dalia Apple on 12-14-2022 Bilirubin [Mass/Vol] 0.4 mg/dL 0.3-1.0 [facility] Calcium [Mass/volume] in Ser um or PlasmaOrdered By: Dalia Apple on 12-14-2022 Calcium [Mass/Vol] 9.7 mg/dL 8.6-10.3 [facility] Carbon dioxide, total [Moles /volume] in Serum or PlasmaOrdered By: Dalia Apple on 12-14-2022 CO2 [Moles/Vol] 28.1 mmol/L 21.0-31.0 [facility] Chloride [Moles/volume] in S flaco or PlasmaOrdered By: Dalia Apple on 12-14-2022 Chloride [Moles/Vol] 101 mmol/L 98-107 [facility] Creatinine [Mass/volume] in Serum or PlasmaOrdered By: Dalia Apple on 12-14-2022 Creatinine [Mass/Vol] 0.62 mg/dL 0.60-1.20 [facility] Eosinophils Auto (Bld) [#/Vo l]Ordered By: Dalia Apple on 12-14-2022 Eosinophils (Bld) [#/Vol] 0.0 10*3/uL 0.0-0.45 [facility] Eosinophils/100 WBC Auto (Bl d)Ordered By: Dalia Apple on 12-14-2022 Eosinophils/100 WBC (Bld) 0.0 % . [facility] Erythrocyte distribution wid th Auto (RBC) [Ratio]Ordered By: Dalia Apple on 12-14-2022 Erythrocyte distribution width (RBC) [Ratio] 15.1 % 11.9-15.3 [facility] Globulin Calc (S) [Mass/Vol] Ordered By: Dalia Apple on 12-14-2022 Globulin (S) [Mass/Vol] 2.7 g/dL [facility] Glucose [Mass/volume] in Ser um or PlasmaOrdered By: Dalia Apple on 12-14-2022 Glucose [Mass/Vol] 66 mg/dL 70-100 [facility] Comment on above: ADA recommended refe rence rangeRandom Glucose Reference Range is dependent on time and content of last meal. Glucose of more than 200 mg/dL in a nonstressed, ambulatory subject supports the diagnosis of Diabetes Mellitus. Hematocrit Auto (Bld) [Volum e fraction]Ordered By: Dalia Apple on 12-14-2022 Hematocrit (Bld) [Volume fraction] 39.7 % 34.0-46.4 [facility] Hemoglobin [Mass/volume] in BloodOrdered By: Dalia Apple on 12-14-2022 Hemoglobin (Bld) [Mass/Vol] 13.2 g/dL 11.8-15.4 [facility] Leukocytes [#/volume] correc wander for nucleated erythrocytes in Blood by Automated counOrdered By: Dalia Apple on 12-14-2022 WBC corrected for nucl RBC Auto (Bld) [#/Vol] 11.1 10*3/uL 3.8-11.6 [facility] Lymphocytes Auto (Bld) [#/Vo l]Ordered By: Dalia Apple on 12-14-2022 Lymphocytes (Bld) [#/Vol] 0.9 10*3/uL 1.00-4.8 [facility] Lymphocytes/100 WBC Auto (Bl d)Ordered By: Dalia Apple on 12-14-2022 Lymphocytes/100 WBC (Bld) 8.3 % . [facility] MCH Auto (RBC) [Entitic mass ]Ordered By: Dalia Apple on 12-14-2022 MCH (RBC) [Entitic mass] 30.5 pg 24.7-34.3 [facility] MCHC Auto (RBC) [Mass/Vol]Or dered By: Dalia Apple on 12-14-2022 MCHC (RBC) [Mass/Vol] 33.2 g/dL 32.0-35.0 [facility] MCV Auto (RBC) [Entitic vol] Ordered By: Dalia Apple on 12-14-2022 MCV (RBC) [Entitic vol] 92.1 fL 80-100 [facility] Magnesium [Mass/volume] in S flaco or PlasmaOrdered By: Dalia Apple on 12-14-2022 Magnesium [Mass/Vol] 1.9 mg/dL 1.9-2.7 [facility] Monocytes Auto (Bld) [#/Vol] Ordered By: Dalia Apple on 12-14-2022 Monocytes (Bld) [#/Vol] 0.6 10*3/uL 0.0-0.8 [facility] Monocytes/100 WBC Auto (Bld) Ordered By: Dalia Apple on 12-14-2022 Monocytes/100 WBC (Bld) 5.5 % . [facility] Neutrophils Auto (Bld) [#/Vo l]Ordered By: Dalia Apple on 12-14-2022 Neutrophils (Bld) [#/Vol] 9.5 10*3/uL 1.8-7.7 [facility] Neutrophils/100 WBC Auto (Bl d)Ordered By: Dalia Apple on 12-14-2022 Neutrophils/100 WBC (Bld) 85.7 % . [facility] No Panel InformationOrdered By: Dalia Apple on 12-14-2022 Estimated GFR (CKD-EPI) > 60.0 mL/Min [facility] Creatinine Clearance (Chem N/A [facility] Nucleated erythrocytes [Pres ence] in Blood by Automated countOrdered By: Dalia Apple on 12-14-2022 Nucleated RBC Auto Ql (Bld) 0.0 /100{WBC} 0-0.5 [facility] Platelet mean volume Auto (B ld) [Entitic vol]Ordered By: Dalia Apple on 12-14-2022 Platelet mean volume (Bld) [Entitic vol] 7.5 fL 6.3-10.7 [facility] Platelets Auto (Bld) [#/Vol] Ordered By: Dalia Apple on 12-14-2022 Platelets (Bld) [#/Vol] 292 10*3/uL 150-450 [facility] Potassium [Moles/volume] in Serum or PlasmaOrdered By: Dalia Apple on 12-14-2022 Potassium [Moles/Vol] 4.0 mmol/L 3.5-5.1 [facility] Protein [Mass/volume] in Ser um or PlasmaOrdered By: Dalia Apple on 12-14-2022 Protein [Mass/Vol] 7.1 g/dL 6.4-8.9 [facility] RBC Auto (Bld) [#/Vol]Ordere d By: Dalia Apple on 12-14-2022 RBC (Bld) [#/Vol] 4.31 10*6/uL 3.60-5.00 [facility] Serum or plasma albumin/glob ulin mass ratioOrdered By: Dalia Apple on 12-14-2022 Albumin/Globulin [Mass ratio] 1.6 {ratio} [facility] Serum or plasma anion gap de terminationOrdered By: Dalia Apple on 12-14-2022 Anion gap [Moles/Vol] 9.9 mmol/L 6.0-15.0 [facility] Sodium [Moles/volume] in Ser um or PlasmaOrdered By: Dalia Apple on 12-14-2022 Sodium [Moles/Vol] 135 mmol/L 136-145 [facility] Urea nitrogen [Mass/volume] in Serum or PlasmaOrdered By: Dalia Apple on 12-14-2022 Urea nitrogen [Mass/Vol] 17 mg/dL 7-25 [facility] WBC Auto (Bld) [#/Vol]Ordere d By: Dalia Apple on 12-14-2022 WBC (Bld) [#/Vol] 11.1 10*3/uL 3.8-11.6 [facility] PREG HCG QUALon 10-06-2022 , QUAL Negative Normal NEGATIVE [facility] Comment on above: Performed By: #### P REG #### [facility] [address] [address] [address] Juliet Medina CBC AUTO DIFFon 10-02-2022 BASO # 0.0 103/ul Normal 0.0-0.1 [facility] Comment on above: Performed By: #### C BC #### [facility] [address] [address] [address] Juliet Medina Basophils/100 WBC (Bld) 0.4 % Normal 0.2-2.0 [facility] Comment on above: Performed By: #### C BC #### [facility] [address] [place] [address] Dr. Juliet Medina EO # 0.1 103/ul Normal 0.0-0.7 [facility] Comment on above: Performed By: #### C BC #### [facility] [address] [place] [address] Dr. Juliet Medina Eosinophils/100 WBC (Bld) 0.6 % Critically low 0.9-7.0 [facility] Comment on above: Performed By: #### C BC #### [facility] [address] [place] [address] Dr. Juliet Medina Erythrocyte distribution width (RBC) [Ratio] 13.6 % Normal 11.0-15.0 [facility] Comment on above: Performed By: #### C BC #### [facility] [address] [place] [address] Dr. Juliet Medina Hematocrit (Bld) [Volume fraction] 38.4 % Normal 36.0-48.0 [facility] Comment on above: Performed By: #### C BC #### [facility] [address] [place] [address] Dr. Juliet Medina Hemoglobin (Bld) [Mass/Vol] 13.1 g/dL Normal 12.0-16.0 [facility] Comment on above: Performed By: #### C BC #### [facility] [address] [place] [address] Dr. Juliet Medina IG # 0.02 10e3/ul Normal 0.00-0.03 [facility] Comment on above: Performed By: #### C BC #### [facility] [address] [place] [address] Dr. Juliet Medina IG % 0.3 % Normal 0.0-0.5 [facility] Comment on above: Performed By: #### C BC #### [facility] [address] [place] [address] Dr. Juliet Medina LYMPH # 1.3 103/ul Normal 1.2-3.8 [facility] Comment on above: Performed By: #### C BC #### [facility] [address] [place] [address] Dr. Juliet Medina Lymphocytes/100 WBC (Bld) 16.5 % Critically low 20.5-60.0 [facility] Comment on above: Performed By: #### C BC #### [facility] [address] [place] [address] Dr. Juliet Medina MANUAL DIFF REQ NO Normal [facility] Comment on above: Performed By: #### C BC #### [facility] [address] [place] [address] Dr. Juliet Medina MCH (RBC) [Entitic mass] 31.1 pg Normal 26.7-34.0 [facility] Comment on above: Performed By: #### C BC #### [facility] [address] [place] [address] Dr. Juliet Medina MCHC (RBC) [Mass/Vol] 34.1 g/dL Normal 29.9-35.2 [facility] Comment on above: Performed By: #### C BC #### [facility] [address] [place] [address] Dr. Juliet Medina MCV (RBC) [Entitic vol] 91.2 fL Normal 81.0-99.0 [facility] Comment on above: Performed By: #### C BC #### [facility] [address] [place] [address] Dr. Juliet Medina MONO # 0.6 103/ul Normal 0.3-0.8 [facility] Comment on above: Performed By: #### C BC #### [facility] [address] [place] [address] Dr. Juliet Medina Monocytes/100 WBC (Bld) 7.7 % Normal 1.7-12.0 [facility] Comment on above: Performed By: #### C BC #### [facility] [address] [place] [address] Dr. Juliet Medina NEUT # 5.8 103/ul Normal 1.4-6.5 [facility] Comment on above: Performed By: #### C BC #### [facility] [address] [place] [address] Dr. Juliet Medina Neutrophils/100 WBC (Bld) 74.5 % Normal 43.0-75.0 [facility] Comment on above: Performed By: #### C BC #### [facility] [address] [place] [address] Dr. Juliet Medina Platelet mean volume (Bld) [Entitic vol] 9.2 fL Critically low 9.5-13.5 [facility] Comment on above: Performed By: #### C BC #### [facility] [address] [place] [address] Dr. Juliet Medina PLT 296 103/ul Normal 150-450 [facility] Comment on above: Performed By: #### C BC #### [facility] [address] [place] [address] Dr. Juliet Medina RBC 4.21 106/ul Normal 4.20-5.40 [facility] Comment on above: Performed By: #### C BC #### [facility] [address] [place] [address] Dr. Juliet Medina WBC 7.8 103/ul Normal 4.0-11.0 [facility] Comment on above: Performed By: #### C BC #### [facility] [address] [place] [address] FACIAL BONES WO CONon CT FACIAL BONES WO CON EXAMINATION: CT FACIAL BONES WO CON HISTORY: UNSPECIFIED INJURY OF FACE, INITIAL ENCOUNTER nasal injury. COMPARISON: None. TECHNIQUE: CT examination of the facial bones without IV contrast. Coronal and sagittal reformations were performed. Dose reduction techniques were achieved by using automated exposure control and/or adjustment of mA and/or kV according to patient size and/or use of iterative reconstruction technique. FINDINGS: There is a displaced nasal bone fracture on the right. Left nasal bone appears to be intact. The zygomatic arches are intact. Orbital estrada are intact. The estrada of the maxillary sinuses are intact. Mandible intact. Mild mucosal thickening in the right maxillary sinus. Mastoid air cells and middle ear cavities clear. Skull base appears normal. Intraorbital contents normal. Nasopharynx and oropharynx normal. The tongue and floor of the mouth normal. IMPRESSION: There is a displaced nasal bone fracture on the right with medial displacement of the right nasal bone. No other maxillofacial bone fractures. Electronically authenticated by: CHARLIE ELIZABETH Date: 2022-09-29 21:30 Normal [facility] XR CSPINE 2_3 VIEWSon 2021 XR CSPINE 2_3 VIEWS EXAM: XR CSPINE 2_3 VIEWS HISTORY: Pain COMPARISON: None. TECHNIQUE: AP lateral and open-mouth radiographs of the cervical spine. FINDINGS: Cervical collar in place. The prevertebral soft tissues are normal. The vertebral body heights are maintained. The disc spaces are preserved. The C1-C2 relationship is maintained. No fractures identified. Normal mineralization. IMPRESSION: 1. No cervical spine fracture identified. Electronically authenticated by: IVONE LABOY Date: 2022-01-10 16:28 Normal [facility] Otheron 06-19-2020 No acute x-ray abnormality of the left knee. [facility] Workstation ID: [id number] [facility] EXAMINATION: XR KNEE LEFT 2 VIEWS (STANDARD) 06/19/2020 1:12 pm HISTORY: ORDERING SYSTEM PROVIDED HISTORY: left knee pain for nine months., TECHNOLOGIST PROVIDED HISTORY: Injury/Trauma Reason for exam: posterior and anterior pain Cancer History: no Surgery, RadiationHistory: no Encounter Type: Initial Mechanism of injury: heard a pop' while running 8 months ago/ pain since ORDERING SYSTEM PROVIDED DIAGNOSIS CODES: M25.562 Chronic pain of left knee G89.29 Chronic pain of left knee COMPARISON: 12/03/2008. FINDINGS: Normal osseous alignment. No evidence of joint effusion, stress reaction, fracture or dislocation. No degenerative spurring. [facility] Interface, Rad In [employer] - 06/19/2020 3:32 PM EST EXAMINATION: XR KNEE LEFT 2 VIEWS (STANDARD) 06/19/2020 1:12 pm HISTORY: ORDERING SYSTEM PROVIDED HISTORY: left knee pain for nine months., TECHNOLOGIST PROVIDED HISTORY: Injury/Trauma Reason for exam: posterior and anterior pain Cancer History: no Surgery, RadiationHistory: no Encounter Type: Initial Mechanism of injury: heard a pop' while running 8 months ago/ pain since ORDERING SYSTEM PROVIDED DIAGNOSIS CODES: M25.562 Chronic pain of left knee G89.29 Chronic pain of left knee COMPARISON: 12/03/2008. FINDINGS: Normal osseous alignment. No evidence of joint effusion, stress reaction, fracture or dislocation. No degenerative spurring. IMPRESSION: No acute x-ray abnormality of the left knee. [employer] Workstation ID: [id number] [facility] XR KNEE LEFT 2 VIEWS ([address] RD)on 06-19-2020 XR KNEE LEFT 2 VIEWS (STANDARD) EXAMINATION: XR KNEE LEFT 2 VIEWS (STANDARD) 06/19/2020 1:12 pm HISTORY: ORDERING SYSTEM PROVIDED HISTORY: left knee pain for nine months., TECHNOLOGIST PROVIDED HISTORY: Injury/Trauma Reason for exam: posterior and anterior pain Cancer History: no Surgery, RadiationHistory: no Encounter Type: Initial Mechanism of injury: heard a pop' while running 8 months ago/ pain since ORDERING SYSTEM PROVIDED DIAGNOSIS CODES: M25.562 Chronic pain of left knee G89.29 Chronic pain of left knee COMPARISON: 12/03/2008. FINDINGS: Normal osseous alignment. No evidence of joint effusion, stress reaction, fracture or dislocation. No degenerative spurring. IMPRESSION: No acute x-ray abnormality of the left knee. [employer] Workstation ID: [id number] Dictated by: AMY WRIGHT on WedJun 19, 2020 2:51:25 PM EST Transcribed by: BERT PIEDRA on WedJun 19, 2020 3:23:02 PM EST Finalized by: AMY WRIGHT on WedJun 19, 2020 3:29:26 PM EST Normal [facility] Comment on above: Order Comment: Injur y/Trauma or Illness?:Injury/Trauma How long have you had these symptoms (acute/chronic)?:Chronic Reason for exam?:posterior and anterior pain History of cancer?:no Surgeries, chemotherapy, or radiation?:no Type of Exam?:Initial Mechanism of injury?:heard a pop' while running 8 months ago/ pain since CBCon 06-04-2020 Erythrocyte distribution width (RBC) [Entitic vol] 14.4 % 11.6 - 14.8 % [facility] Hematocrit (Bld) [Volume fraction] 35.7 % Low 36 - 46 % [facility] Hemoglobin (Bld) [Mass/Vol] 11.6 g/dL Low 12 - 16 g/dL [facility] Interpretation and review of laboratory results Abnormal [facility] MCH (RBC) [Entitic mass] 31.1 pg 26 - [address] [facility] MCHC (RBC) [Mass/Vol] 32.5 g/dL 31 - 37 g/dL [facility] MCV (RBC) [Entitic vol] 95.7 fL 80 - [address] [facility] Nucleated RBC (Bld) [#/Vol] 0.00 10*3/uL [facility] Nucleated RBC/100 WBC (Bld) [Ratio] 0.0 % [facility] Platelet mean volume (Bld) [Entitic vol] 9.4 fL 9.4 - 12.[address] [facility] Platelets (Bld) [#/Vol] 359 10*3/uL [facility] RBC (Bld) [#/Vol] 3.73 10*6/uL Low [facility] WBC (Bld) [#/Vol] 5.37 10*3/uL [facility] CRP, Inflammationon 06-04-20 20 CRP [Mass/Vol] mg/L <=10.0 mg/L [facility] h Chem 7on 06-04-2020 Anion gap [Moles/Vol] 8 mmol/L Low 10 - 20 mmol/L [facility] Chloride [Moles/Vol] 109 mmol/L High 98 - 108 mmol/L [facility] Creatinine [Mass/Vol] 0.51 mg/dL 0.40 - 1.[address] [facility] GFR/1.73 sq M predicted among non-blacks MDRD (S/P/Bld) [Vol rate/Area] The eGFR should be used for monitoring renal function only and not for medication dosing. [facility] GFR/1.73 sq M.predicted CKD-EPI (S/P/Bld) [Vol rate/Area] 128 >=60 mL/min/1.[address] [facility] Glucose [Mass/Vol] 91 mg/dL 65 - 99 mg/dL [facility] HCO3 [Moles/Vol] 29 mmol/L 21 - 32 mmol/L [facility] Interpretation and review of laboratory results Abnormal [facility] Potassium [Moles/Vol] 4.6 mmol/L 3.5 - 5.1 mmol/L [facility] Sodium [Moles/Vol] 141 mmol/L 135 - 145 mmol/L [facility] Urea nitrogen [Mass/Vol] 2 mg/dL Low 8 - 25 mg/dL [facility] Urea nitrogen/Creatinine [Mass ratio] 3.9 mg/mg Low [facility] HEPATITIS B SURFACE ANTIGENo n 06-04-2020 HBV surface Ag Ql (S) Negative Negative [facility] Interpretation and review of laboratory results Normal [facility] Test performed using Luis FER immunoassay system [facility] Magnesium Levelon 06-04-2020 Magnesium [Mass/Vol] 2.1 mg/dL 1.6 - 2.4 mg/dL [facility] Otheron 06-04-2020 Interpretation and review of laboratory results Normal [facility] Phosphoruson 06-04-2020 Phosphate [Mass/Vol] 4.1 mg/dL 2.7 - 4.5 mg/dL [facility] XR ABDOMEN 2 VIEWS WITH CHES T 1 VIEWon 06-04-2020 Increasing small bowel distention in the left midabdomen is seen in this patient who has had prior surgery for Crohn's disease in the right lower quadrant. A continued inflammatory process in the right lower quadrant with partial obstruction in the small bowel is of concern. [facility] Workstation ID: [id number] [facility] Interface, [facility] 10:47 AM EST EXAMINATION: XR ABDOMEN 2 VIEWS WITH CHEST 1 VIEW 06/04/2020 7:30 AM HISTORY: ORDERING SYSTEM PROVIDED HISTORY: abd pain, TECHNOLOGIST PROVIDED HISTORY: Illness/Other Reason for exam: abdomianl pain Cancer History: no Surgery, RadiationHistory: no Encounter Type: Ongoing Additional signs and symptoms: no ORDERING SYSTEM PROVIDED DIAGNOSIS CODES: E87.6 Hypokalemia K50.919 Crohn's disease with complication, unspecified gastrointestinal tract location (HCC) R11.2 Nausea and vomiting, intractability of vomiting not specified, unspecified vomiting type COMPARISON: The CT is compared of 06/02/2020. The abdominal series of 06/01/2020 is reviewed also. FINDINGS: The abdominal series consists of a portable AP upright view of the chest and then supine and upright views of the abdomen were obtained. In the chest, the lung cordoba seem clear. The heart is stable. No free air in the abdomen is seen. Artifact due to the patient's clothing overlies the lower chest. In the abdomen, some distended small bowel loops can be seen in the left midabdominal region. The caliber of the small bowel now is approaching 4.9 cm and has increased over the previous study of 06/01/2020 at which time it was 3.6 cm. Patient has a diagnosis of Crohn's disease with prior surgery. There is some opaque densities which may be sutures in the right lower quadrant. No organomegaly can be seen. IMPRESSION: Increasing small bowel distention in the left midabdomen is seen in this patient who has had prior surgery for Crohn's disease in the right lower quadrant. A continued inflammatory process in the right lower quadrant with partial obstruction in the small bowel is of concern. [facility] Workstation ID: [id number] [facility] EXAMINATION: XR ABDOMEN 2 VIEWS WITH CHEST 1 VIEW 06/04/2020 7:30 AM HISTORY: ORDERING SYSTEM PROVIDED HISTORY: abd pain, TECHNOLOGIST PROVIDED HISTORY: Illness/Other Reason for exam: abdomianl pain Cancer History: no Surgery, RadiationHistory: no Encounter Type: Ongoing Additional signs and symptoms: no ORDERING SYSTEM PROVIDED DIAGNOSIS CODES: E87.6 Hypokalemia K50.919 Crohn's disease with complication, unspecified gastrointestinal tract location (HCC) R11.2 Nausea and vomiting, intractability of vomiting not specified, unspecified vomiting type COMPARISON: The CT is compared of 06/02/2020. The abdominal series of 06/01/2020 is reviewed also. FINDINGS: The abdominal series consists of a portable AP upright view of the chest and then supine and upright views of the abdomen were obtained. In the chest, the lung cordoba seem clear. The heart is stable. No free air in the abdomen is seen. Artifact due to the patient's clothing overlies the lower chest. In the abdomen, some distended small bowel loops can be seen in the left midabdominal region. The caliber of the small bowel now is approaching 4.9 cm and has increased over the previous study of 06/01/2020 at which time it was 3.6 cm. Patient has a diagnosis of Crohn's disease with prior surgery. There is some opaque densities which may be sutures in the right lower quadrant. No organomegaly can be seen. [facility] XR ABDOMEN 2 VIEWS WITH CHEST 1 VIEW EXAMINATION: XR ABDOMEN 2 VIEWS WITH CHEST 1 VIEW 06/04/2020 7:30 AM HISTORY: ORDERING SYSTEM PROVIDED HISTORY: abd pain, TECHNOLOGIST PROVIDED HISTORY: Illness/Other Reason for exam: abdomianl pain Cancer History: no Surgery, RadiationHistory: no Encounter Type: Ongoing Additional signs and symptoms: no ORDERING SYSTEM PROVIDED DIAGNOSIS CODES: E87.6 Hypokalemia K50.919 Crohn's disease with complication, unspecified gastrointestinal tract location (HCC) R11.2 Nausea and vomiting, intractability of vomiting not specified, unspecified vomiting type COMPARISON: The CT is compared of 06/02/2020. The abdominal series of 06/01/2020 is reviewed also. FINDINGS: The abdominal series consists of a portable AP upright view of the chest and then supine and upright views of the abdomen were obtained. In the chest, the lung cordoba seem clear. The heart is stable. No free air in the abdomen is seen. Artifact due to the patient's clothing overlies the lower chest. In the abdomen, some distended small bowel loops can be seen in the left midabdominal region. The caliber of the small bowel now is approaching 4.9 cm and has increased over the previous study of 06/01/2020 at which time it was 3.6 cm. Patient has a diagnosis of Crohn's disease with prior surgery. There is some opaque densities which may be sutures in the right lower quadrant. No organomegaly can be seen. IMPRESSION: Increasing small bowel distention in the left midabdomen is seen in this patient who has had prior surgery for Crohn's disease in the right lower quadrant. A continued inflammatory process in the right lower quadrant with partial obstruction in the small bowel is of concern. [facility] Workstation ID: [id number] Dictated by: TETE COTTER on WedJun 04, 2020 9:19:17 AM EST Transcribed by: HANNAH METZ on WedJun 04, 2020 9:45:51 AM EST Finalized by: TETE COTTER on WedJun 04, 2020 10:44:40 AM EST [facility] Comment on above: Order Comment: Injur y/Trauma or Illness?:Illness/Other How long have you had these symptoms (acute/chronic)?:Acute Reason for exam?:abdomianl pain History of cancer?:no Surgeries, chemotherapy, or radiation?:no Type of Exam?:Ongoing Additional signs and symptoms?:no Basic Metabolic Panelon 11-3 Anion gap [Moles/Vol] 7 mmol/L Low 10 - 20 mmol/L [facility] Calcium [Mass/Vol] 8.2 mg/dL Low 8.4 - 10.2 mg/dL [facility] Chloride [Moles/Vol] 111 mmol/L High 98 - 108 mmol/L [facility] Creatinine [Mass/Vol] 0.53 mg/dL 0.40 - 1.[address] [facility] GFR/1.73 sq M predicted among non-blacks MDRD (S/P/Bld) [Vol rate/Area] The eGFR should be used for monitoring renal function only and not for medication dosing. [facility] GFR/1.73 sq M.predicted CKD-EPI (S/P/Bld) [Vol rate/Area] 126 >=60 mL/min/1.[address] [facility] Glucose [Mass/Vol] 112 mg/dL High 65 - 99 mg/dL [facility] HCO3 [Moles/Vol] 29 mmol/L 21 - 32 mmol/L [facility] Interpretation and review of laboratory results Abnormal [facility] Potassium [Moles/Vol] 4.8 mmol/L 3.5 - 5.1 mmol/L [facility] Sodium [Moles/Vol] 142 mmol/L 135 - 145 mmol/L [facility] Urea nitrogen [Mass/Vol] mg/dL Low 8 - 25 mg/dL [facility] Urea nitrogen/Creatinine [Mass ratio] [facility] Comment on above: Unable to calculate; a result component is outside measurable limits. Magnesium Levelon 06-03-2020 Magnesium [Mass/Vol] 2.0 mg/dL 1.6 - 2.4 mg/dL [facility] [place] Topon 06-03-2020 Extra Tube Hold for add-ons. [facility] Comment on above: Auto resulted. Otheron 06-03-2020 Interpretation and review of laboratory results Normal [facility] Stool/GI PCR Panelon 020 Adenovirus 40+41 DNA CARLOTTA+non-probe Ql (Stl) Not Detected Not Detected [facility] Astrovirus subtypes 1-8 RNA CARLOTTA+non-probe Ql (Stl) Not Detected Not Detected [facility] C. cayetanensis DNA CARLOTTA+non-probe Ql (Stl) Not Detected Not Detected [facility] C. coli+jejuni+upsalien sis DNA CARLOTTA+non-probe Ql (Stl) Not Detected Not Detected [facility] C. difficile toxin A+B tcdA+tcdB genes CARLOTTA+non-probe Ql (Stl) Not Detected Not Detected [facility] Cryptosporidium sp DNA CARLOTTA+non-probe Ql (Stl) Not Detected Not Detected [facility] E. coli enteroaggregative Mendy plasmid aggR+aatA genes CARLOTTA+non-probe Ql (Stl) Not Detected Not Detected [facility] E. coli enteropathogenic eae gene CARLOTTA+non-probe Ql (Stl) Not Detected Not Detected [facility] E. coli enterotoxigenic ltA+st1a+st1b genes CARLOTTA+non-probe Ql (Stl) Not Detected Not Detected [facility] E. coli stx1+stx2 genes CARLOTTA+non-probe Ql (Stl) Not Detected Not Detected [facility] E. histolytica DNA CARLOTTA+non-probe Ql (Stl) Not Detected Not Detected [facility] G. lamblia DNA CARLOTTA+non-probe Ql (Stl) Not Detected Not Detected [facility] Norovirus genogroup I+II RNA CARLOTTA+non-probe Ql (Stl) Not Detected Not Detected [facility] P. shigelloides DNA CARLOTTA+non-probe Ql (Stl) Not Detected Not Detected [facility] Rotavirus A RNA CARLOTTA+non-probe Ql (Stl) Not Detected Not Detected [facility] S. enterica+bongori DNA CARLOTTA+non-probe Ql (Stl) Not Detected Not Detected [facility] Sapovirus genogroups I+II+IV+V RNA CARLOTTA+non-probe Ql (Stl) Not Detected Not Detected [facility] Shigella species+EIEC invasion plasmid antigen H ipaH gene CARLOTTA+non-probe Ql (Stl) Not Detected Not Detected [facility] V. cholerae DNA CARLOTTA+non-probe Ql (Stl) Not Detected Not Detected [facility] V. cholerae+parahaemoly ticus+vulnificus DNA CARLOTTA+non-probe Ql (Stl) Not Detected Not Detected [facility] Y. enterocolitica DNA CARLOTTA+non-probe Ql (Stl) Not Detected Not Detected [facility] Results of PCR testing for stool pathogens must be taken into clinical context when making treatment decisions. Most gastrointestinal infections due to common bacterial and viral causes are self-limited in nature and do not require antimicrobial therapy. The use of antimicrobial therapy must be carefully weighed against unintended and potentially harmful consequences. The role of antimicrobial therapy depends on the implicated pathogen. In general, antimicrobial agents are only used to treat parasitic infections as well as select bacterial infections. [facility] Basic Metabolic Panelon 05-06 Anion gap [Moles/Vol] 5 mmol/L Low 10 - 20 mmol/L [facility] Calcium [Mass/Vol] 8.0 mg/dL Low 8.4 - 10.2 mg/dL [facility] Chloride [Moles/Vol] 112 mmol/L High 98 - 108 mmol/L [facility] Creatinine [Mass/Vol] 0.51 mg/dL 0.40 - 1.[address] [facility] GFR/1.73 sq M predicted among non-blacks MDRD (S/P/Bld) [Vol rate/Area] The eGFR should be used for monitoring renal function only and not for medication dosing. [facility] GFR/1.73 sq M.predicted CKD-EPI (S/P/Bld) [Vol rate/Area] 128 >=60 mL/min/1.[address] [facility] Glucose [Mass/Vol] 123 mg/dL High 65 - 99 mg/dL [facility] HCO3 [Moles/Vol] 29 mmol/L 21 - 32 mmol/L [facility] Interpretation and review of laboratory results Abnormal [facility] Potassium [Moles/Vol] 5.2 mmol/L High 3.5 - 5.1 mmol/L [facility] Sodium [Moles/Vol] 141 mmol/L 135 - 145 mmol/L [facility] Urea nitrogen [Mass/Vol] mg/dL Low 8 - 25 mg/dL [facility] Urea nitrogen/Creatinine [Mass ratio] [facility] Comment on above: Unable to calculate; a result component is outside measurable limits. [facility]Con 06-02-2020 Erythrocyte distribution width (RBC) [Entitic vol] 14.4 % 11.6 - 14.8 % [facility] Hematocrit (Bld) [Volume fraction] 30.8 % Low 36 - 46 % [facility] Hemoglobin (Bld) [Mass/Vol] 10.0 g/dL Low 12 - 16 g/dL [facility] Interpretation and review of laboratory results Abnormal [facility] MCH (RBC) [Entitic mass] 31.1 pg 26 - [address] [facility] MCHC (RBC) [Mass/Vol] 32.5 g/dL 31 - 37 g/dL [facility] MCV (RBC) [Entitic vol] 95.7 fL 80 - [address] [facility] Nucleated RBC (Bld) [#/Vol] 0.01 10*3/uL High [facility] Nucleated RBC/100 WBC (Bld) [Ratio] 0.5 % [facility] Platelet mean volume (Bld) [Entitic vol] 9.6 fL 9.4 - 12.[address] [facility] Platelets (Bld) [#/Vol] 310 10*3/uL [facility] RBC (Bld) [#/Vol] 3.22 10*6/uL Low [facility] WBC (Bld) [#/Vol] 1.84 10*3/uL Low [facility] CT ABDOMEN PELVIS WITH AND W ITHOUT CONTRASTon 06-02-2020 Interface, Rad In [employer] - 06/02/2020 2:31 PM EST EXAMINATION: CT ABDOMEN PELVIS WITH AND WITHOUT CONTRAST HISTORY: ORDERING SYSTEM PROVIDED HISTORY: rule out SBO, has abdominal pain, TECHNOLOGIST PROVIDED HISTORY: Illness/Other Reason for exam: rule out SBO, has abdominal pain Encounter Type: Initial Additional signs and symptoms: rule out SBO, has abdominal pain ORDERING SYSTEM PROVIDED DIAGNOSIS CODES: E87.6 Hypokalemia K50.919 Crohn's disease with complication, unspecified gastrointestinal tract location (HCC) R11.2 Nausea and vomiting, intractability of vomiting not specified, unspecified vomiting type COMPARISON: Previous CT abdomen and pelvis from May 30, 2020. Abdomen study from May 01, 2020. TECHNIQUE: Dose reduction techniques were achieved by using automated exposure control and/or adjustment of mA and/or kV according to patient size and/or use of iterative reconstruction technique. CT scans of the abdomen and pelvis were obtained in this patient administered oral contrast, and evaluated prior to and following intravenous administration of iodinated contrast material. Coronal and sagittal reformatted images are also reconstructed for viewing. CONTRAST: IOPAMIDOL 76 % INTRAVENOUS SOLUTION - 75 mL, FINDINGS: Lung bases are clear. The heart is not enlarged. No signs of pneumoperitoneum. Continued satisfactory appearance of the liver, gallbladder, biliary tree, pancreas, spleen, adrenal glands, and kidneys. In the pelvis, uterus, and adnexal structures are satisfactory. Fluid is seen surrounding the uterus in the pelvic cul-de-sac. Bladder is normal. The orally administered contrast outlines the stomach, and relatively dilated proximal small bowel. Note made of more distal loops of small bowel which are likely ileum showing circumferential wall thickening, surrounding inflammation and hypervascularity as well as submucosal enhancement. These are seen in the lower mid abdomen lower right quadrant, and extend to the ileocecal junction. Surgical clip material in this region likely represents previous partial resection of the terminal ileum and or cecum. It appears that the appendix has been surgically removed as well. All portions of the colon evaluated showed normal caliber, normal thickness colon wall without certain inflammatory change. Bony structures appear to be intact. Abdominal wall structures are intact. IMPRESSION: 1. Redemonstration of diffuse inflammatory wall thickening, hypervascularity, submucosal enhancement involving the mid and distal small bowel, consistent with diffuse Crohn's disease, seen extending to the ileocecal junction. There does not appear to be high-grade bowel obstruction. Contrast administered orally does outline some slightly ectatic loops of small bowel in the upper abdomen, proximal to the inflammatory changes of Crohn's disease. 2. Stable similar findings of previous surgery at the ileocecal junction, and likely appendectomy, peritoneal free fluid primarily in the lower right colic gutter, and pelvic cul-de-sac. 3. Stable upper abdominal solid organs. [email or web address] Workstation ID: [id number] [facility] 1. Redemonstration of diffuse inflammatory wall thickening, hypervascularity, submucosal enhancement involving the mid and distal small bowel, consistent with diffuse Crohn's disease, seen extending to the ileocecal junction. There does not appear to be high-grade bowel obstruction. Contrast administered orally does outline some slightly ectatic loops of small bowel in the upper abdomen, proximal to the inflammatory changes of Crohn's disease. 2. Stable similar findings of previous surgery at the ileocecal junction, and likely appendectomy, peritoneal free fluid primarily in the lower right colic gutter, and pelvic cul-de-sac. 3. Stable upper abdominal solid organs. [email or web address] Workstation ID: [id number] [facility] EXAMINATION: CT ABDOMEN PELVIS WITH AND WITHOUT CONTRAST HISTORY: ORDERING SYSTEM PROVIDED HISTORY: rule out SBO, has abdominal pain, TECHNOLOGIST PROVIDED HISTORY: Illness/Other Reason for exam: rule out SBO, has abdominal pain Encounter Type: Initial Additional signs and symptoms: rule out SBO, has abdominal pain ORDERING SYSTEM PROVIDED DIAGNOSIS CODES: E87.6 Hypokalemia K50.919 Crohn's disease with complication, unspecified gastrointestinal tract location (HCC) R11.2 Nausea and vomiting, intractability of vomiting not specified, unspecified vomiting type COMPARISON: Previous CT abdomen and pelvis from May 30, 2020. Abdomen study from May 01, 2020. TECHNIQUE: Dose reduction techniques were achieved by using automated exposure control and/or adjustment of mA and/or kV according to patient size and/or use of iterative reconstruction technique. CT scans of the abdomen and pelvis were obtained in this patient administered oral contrast, and evaluated prior to and following intravenous administration of iodinated contrast material. Coronal and sagittal reformatted images are also reconstructed for viewing. CONTRAST: IOPAMIDOL 76 % INTRAVENOUS SOLUTION - 75 mL, FINDINGS: Lung bases are clear. The heart is not enlarged. No signs of pneumoperitoneum. Continued satisfactory appearance of the liver, gallbladder, biliary tree, pancreas, spleen, adrenal glands, and kidneys. In the pelvis, uterus, and adnexal structures are satisfactory. Fluid is seen surrounding the uterus in the pelvic cul-de-sac. Bladder is normal. The orally administered contrast outlines the stomach, and relatively dilated proximal small bowel. Note made of more distal loops of small bowel which are likely ileum showing circumferential wall thickening, surrounding inflammation and hypervascularity as well as submucosal enhancement. These are seen in the lower mid abdomen lower right quadrant, and extend to the ileocecal junction. Surgical clip material in this region likely represents previous partial resection of the terminal ileum and or cecum. It appears that the appendix has been surgically removed as well. All portions of the colon evaluated showed normal caliber, normal thickness colon wall without certain inflammatory change. Bony structures appear to be intact. Abdominal wall structures are intact. [facility] CT ABDOMEN PELVIS WITH AND WITHOUT CONTRAST EXAMINATION: CT ABDOMEN PELVIS WITH AND WITHOUT CONTRAST HISTORY: ORDERING SYSTEM PROVIDED HISTORY: rule out SBO, has abdominal pain, TECHNOLOGIST PROVIDED HISTORY: Illness/Other Reason for exam: rule out SBO, has abdominal pain Encounter Type: Initial Additional signs and symptoms: rule out SBO, has abdominal pain ORDERING SYSTEM PROVIDED DIAGNOSIS CODES: E87.6 Hypokalemia K50.919 Crohn's disease with complication, unspecified gastrointestinal tract location (HCC) R11.2 Nausea and vomiting, intractability of vomiting not specified, unspecified vomiting type COMPARISON: Previous CT abdomen and pelvis from May 30, 2020. Abdomen study from May 01, 2020. TECHNIQUE: Dose reduction techniques were achieved by using automated exposure control and/or adjustment of mA and/or kV according to patient size and/or use of iterative reconstruction technique. CT scans of the abdomen and pelvis were obtained in this patient administered oral contrast, and evaluated prior to and following intravenous administration of iodinated contrast material. Coronal and sagittal reformatted images are also reconstructed for viewing. CONTRAST: IOPAMIDOL 76 % INTRAVENOUS SOLUTION - 75 mL, FINDINGS: Lung bases are clear. The heart is not enlarged. No signs of pneumoperitoneum. Continued satisfactory appearance of the liver, gallbladder, biliary tree, pancreas, spleen, adrenal glands, and kidneys. In the pelvis, uterus, and adnexal structures are satisfactory. Fluid is seen surrounding the uterus in the pelvic cul-de-sac. Bladder is normal. The orally administered contrast outlines the stomach, and relatively dilated proximal small bowel. Note made of more distal loops of small bowel which are likely ileum showing circumferential wall thickening, surrounding inflammation and hypervascularity as well as submucosal enhancement. These are seen in the lower mid abdomen lower right quadrant, and extend to the ileocecal junction. Surgical clip material in this region likely represents previous partial resection of the terminal ileum and or cecum. It appears that the appendix has been surgically removed as well. All portions of the colon evaluated showed normal caliber, normal thickness colon wall without certain inflammatory change. Bony structures appear to be intact. Abdominal wall structures are intact. IMPRESSION: 1. Redemonstration of diffuse inflammatory wall thickening, hypervascularity, submucosal enhancement involving the mid and distal small bowel, consistent with diffuse Crohn's disease, seen extending to the ileocecal junction. There does not appear to be high-grade bowel obstruction. Contrast administered orally does outline some slightly ectatic loops of small bowel in the upper abdomen, proximal to the inflammatory changes of Crohn's disease. 2. Stable similar findings of previous surgery at the ileocecal junction, and likely appendectomy, peritoneal free fluid primarily in the lower right colic gutter, and pelvic cul-de-sac. 3. Stable upper abdominal solid organs. [employer] Workstation ID: [id number] Dictated by: OBED CLAROS on WedJun 02, 2020 2:10:26 PM EST Transcribed by: ANDREIA THORPE on WedJun 02, 2020 2:18:57 PM EST Finalized by: OBED CLAROS on WedJun 02, 2020 2:28:51 PM EST [facility] Comment on above: Order Comment: CTabd omen and pelvis with contrast is ok. Injury/Trauma or Illness?:Illness/Other How long have you had these symptoms (acute/chronic)?:Acute Reason for exam?:rule out SBO, has abominal pain Type of Exam?:Initial Additional signs and symptoms?:rule out SBO, has abominal pain Urine Aerobic Cultureon 05-06 Bacteria identified Aer cx Nom (Unsp spec) No Growth (<1,000 CFU/mL) [facility] XR ABDOMEN 2 VIEWS WITH CHES T 1 VIEWon 06-01-2020 Interface, Rad In [employer] - 06/01/2020 4:08 PM EST EXAMINATION: XR ABDOMEN 2 VIEWS WITH CHEST 1 VIEW 06/01/2020 1:22 pm HISTORY: ORDERING SYSTEM PROVIDED HISTORY: abdominal pain with distension, ?? Bowel obstruction TECHNOLOGIST PROVIDED HISTORY: Illness/Other Reason for exam: abdominal pain with distension, ?? Bowel obstruction Cancer History: no Surgery, RadiationHistory: no Encounter Type: Initial Additional signs and symptoms: h/o Crohn's' ORDERING SYSTEM PROVIDED DIAGNOSIS CODES: E87.6 Hypokalemia K50.919 Crohn's disease with complication, unspecified gastrointestinal tract location (HCC) R11.2 Nausea and vomiting, intractability of vomiting not specified, unspecified vomiting type COMPARISON: CT 05/30/2020 FINDINGS: The lungs are clear. Normal heart size and mediastinal structures. There are several dilated loops of small bowel within the left abdomen, measuring up to 4 cm in diameter. A partial small bowel obstruction is not excluded. Surgical josué are noted in the right lower quadrant. There is no free air. The bony structures are intact. IMPRESSION: There are dilated small bowel loops within the left abdomen measuring up to 4 cm in diameter. Partial/developing small-bowel obstruction is not excluded. No free air. The lungs are clear. Workstation ID: [id number] [facility] EXAMINATION: XR ABDOMEN 2 VIEWS WITH CHEST 1 VIEW 06/01/2020 1:22 pm HISTORY: ORDERING SYSTEM PROVIDED HISTORY: abdominal pain with distension, ?? Bowel obstruction TECHNOLOGIST PROVIDED HISTORY: Illness/Other Reason for exam: abdominal pain with distension, ?? Bowel obstruction Cancer History: no Surgery, RadiationHistory: no Encounter Type: Initial Additional signs and symptoms: h/o Crohn's' ORDERING SYSTEM PROVIDED DIAGNOSIS CODES: E87.6 Hypokalemia K50.919 Crohn's disease with complication, unspecified gastrointestinal tract location (HCC) R11.2 Nausea and vomiting, intractability of vomiting not specified, unspecified vomiting type COMPARISON: CT 05/30/2020 FINDINGS: The lungs are clear. Normal heart size and mediastinal structures. There are several dilated loops of small bowel within the left abdomen, measuring up to 4 cm in diameter. A partial small bowel obstruction is not excluded. Surgical josué are noted in the right lower quadrant. There is no free air. The bony structures are intact. [facility] There are dilated small bowel loops within the left abdomen measuring up to 4 cm in diameter. Partial/developing small-bowel obstruction is not excluded. No free air. The lungs are clear. Workstation ID: [id number] [facility] XR ABDOMEN 2 VIEWS WITH CHEST 1 VIEW EXAMINATION: XR ABDOMEN 2 VIEWS WITH CHEST 1 VIEW 06/01/2020 1:22 pm HISTORY: ORDERING SYSTEM PROVIDED HISTORY: abdominal pain with distension, ?? Bowel obstruction TECHNOLOGIST PROVIDED HISTORY: Illness/Other Reason for exam: abdominal pain with distension, ?? Bowel obstruction Cancer History: no Surgery, RadiationHistory: no Encounter Type: Initial Additional signs and symptoms: h/o Crohn's' ORDERING SYSTEM PROVIDED DIAGNOSIS CODES: E87.6 Hypokalemia K50.919 Crohn's disease with complication, unspecified gastrointestinal tract location (HCC) R11.2 Nausea and vomiting, intractability of vomiting not specified, unspecified vomiting type COMPARISON: CT 05/30/2020 FINDINGS: The lungs are clear. Normal heart size and mediastinal structures. There are several dilated loops of small bowel within the left abdomen, measuring up to 4 cm in diameter. A partial small bowel obstruction is not excluded. Surgical josué are noted in the right lower quadrant. There is no free air. The bony structures are intact. IMPRESSION: There are dilated small bowel loops within the left abdomen measuring up to 4 cm in diameter. Partial/developing small-bowel obstruction is not excluded. No free air. The lungs are clear. Workstation ID: [id number] Dictated by: DEMIAN DIAZ on [facility] Jun 01, 2020 4:05:50 PM EST Transcribed by: DEMIAN DIAZ on [facility] Jun 01, 2020 4:05:50 PM EST Finalized by: DEMIAN DIAZ on [facility] Jun 01, 2020 4:05:50 PM EST [facility] Comment on above: Order Comment: Injur y/Trauma or Illness?:Illness/Other How long have you had these symptoms (acute/chronic)?:Unknown Reason for exam?:abdominal pain with distension, ?? Bowel obstruction History of cancer?:no Surgeries, chemotherapy, or radiation?:no Type of Exam?:Initial Additional signs and symptoms?:h/o crohn's Bilirubin, Directon 05-31-20 20 Bilirubin.conjugated [Mass/Vol] mg/dL 0 - 0.4 mg/dL [facility] CBC WITH AUTO DIFFERENTIALon 05-31-2020 Basophils (Bld) [#/Vol] 0.00 10*3/uL [facility] Basophils/100 WBC (Bld) 0.0 % [facility] Eosinophils (Bld) [#/Vol] 0.00 10*3/uL [facility] Eosinophils/100 WBC (Bld) 0.0 % [facility] Erythrocyte distribution width (RBC) [Entitic vol] 13.8 % 11.6 - 14.8 % [facility] Hematocrit (Bld) [Volume fraction] 30.7 % Low 36 - 46 % [facility] Hemoglobin (Bld) [Mass/Vol] 10.6 g/dL Low 12 - 16 g/dL [facility] Immature granulocytes (Bld) [#/Vol] 0.01 10*3/uL [facility] Immature granulocytes/100 WBC (Bld) 0.80 % [facility] Comment on above: The IG parameter is the percentage of metamyelocytes, myelocytes and promyelocytes. An immature granulocyte count (IG) of 1% or more suggests the possibility of infection, an IG count of 3% is very likely related to an infection. Interpretation and review of laboratory results Abnormal [facility] Lymphocytes (Bld) [#/Vol] 0.19 10*3/uL Low [facility] Lymphocytes/100 WBC (Bld) 15.7 % [facility] MCH (RBC) [Entitic mass] 31.0 pg 26 - [address] [facility] MCHC (RBC) [Mass/Vol] 34.5 g/dL 31 - 37 g/dL [facility] MCV (RBC) [Entitic vol] 89.8 fL 80 - [address] [facility] Monocytes (Bld) [#/Vol] 0.06 10*3/uL Low [facility] Monocytes/100 WBC (Bld) 5.0 % [facility] Neutrophils (Bld) [#/Vol] 0.95 10*3/uL Low [facility] Neutrophils/100 WBC (Bld) 78.5 % [facility] Nucleated RBC (Bld) [#/Vol] 0.00 10*3/uL [facility] Nucleated RBC/100 WBC (Bld) [Ratio] 0.0 % [facility] Platelet mean volume (Bld) [Entitic vol] 9.4 fL 9.4 - 12.[address] [facility] Platelets (Bld) [#/Vol] 283 10*3/uL [facility] RBC (Bld) [#/Vol] 3.42 10*6/uL Low [facility] WBC (Bld) [#/Vol] 1.21 10*3/uL Low [facility] COVID-19/INFLUENZA A,B MOLEC [facility] 05-31-2020 SARS-CoV-2 (COVID-19) Ab IA Ql SARS-COV-2 (YAMINI): Not Detected INFLUENZA A (YAMINI): Not Detected INFLUENZA B (YAMINI): Not Detected Normal Not Detected [facility] Comment on above: Order Comment: This test was performed under the FDA's Emergency Use Authorization (EUA). Testing was performed using the Luis fer SARS-CoV-2 AND Influenza A/B Nucleic Acid Test on the fer Yamini System. This test has not been approved for use in asymptomatic patients and its performance in this patient population has not been evaluated. Negative results do not rule out the presence of SARS-CoV-2, influenza A, and/or influenza B. Fact sheets for the EUA can be found at the following links: For Healthcare Providers: https://www.fda.gov/media/835630/download For Patients: https://www.fda.gov/media/952859/download Performed By: #### L [id number] #### [facility] [address] [address] Raegan Lu M.D. [id number] CRP, Inflammationon 05-31-20 20 CRP [Mass/Vol] 53.5 mg/L High <=10.[address] [facility] Interpretation and review of laboratory results Abnormal [facility] Comprehensive Metabolic Pane tameka 05-31-2020 Albumin [Mass/Vol] 1.7 g/dL Low 3.2 - 5.2 g/dL [facility] ALP [Catalytic activity/Vol] 72 U/L 40 - 140 U/L [facility] ALT [Catalytic activity/Vol] 12 U/L Low 14 - 65 U/L [facility] Anion gap [Moles/Vol] 9 mmol/L Low 10 - 20 mmol/L [facility] AST [Catalytic activity/Vol] 12 U/L 0 - 45 U/L [facility] Bilirubin [Mass/Vol] 0.2 mg/dL 0 - 1.3 mg/dL [facility] Calcium [Mass/Vol] 7.5 mg/dL Low 8.4 - 10.2 mg/dL [facility] Chloride [Moles/Vol] 105 mmol/L 98 - 108 mmol/L [facility] Creatinine [Mass/Vol] 0.46 mg/dL 0.40 - 1.[address] [facility] GFR/1.73 sq M predicted among non-blacks MDRD (S/P/Bld) [Vol rate/Area] The eGFR should be used for monitoring renal function only and not for medication dosing. [facility] GFR/1.73 sq M.predicted CKD-EPI (S/P/Bld) [Vol rate/Area] 132 >=60 mL/min/1.[address] [facility] Glucose [Mass/Vol] 134 mg/dL High 65 - 99 mg/dL [facility] HCO3 [Moles/Vol] 27 mmol/L 21 - 32 mmol/L [facility] Interpretation and review of laboratory results Abnormal [facility] Potassium [Moles/Vol] 3.4 mmol/L Low 3.5 - 5.1 mmol/L [facility] Protein [Mass/Vol] 5.2 g/dL Low 6 - 8 g/dL [facility] Sodium [Moles/Vol] 138 mmol/L 135 - 145 mmol/L [facility] Urea nitrogen [Mass/Vol] 4 mg/dL Low 8 - 25 mg/dL [facility] Urea nitrogen/Creatinine [Mass ratio] 8.7 mg/mg Low [facility] ECG 12-LEADon 05-31-2020 Atrial Rate [address] [facility] P Bertram [address] [facility] P-R Interval [address] [facility] Q-T Interval [address] [facility] QRS Duration [address] [facility] QTC Calculation (Bezet) [address] [facility] R Bertram [address] [facility] T Bertram [address] [facility] Ventricular Rate 100 BPM [facility] Normal sinus rhythm Nonspecific T wave abnormality Prolonged QT Abnormal ECG No previous ECGs available Confirmed by Kwasi Can MD ([id number]) on 05/31/2020 12:27:[address] [facility] Magnesiumon 05-31-2020 Interpretation and review of laboratory results Abnormal [facility] Magnesium [Mass/Vol] 1.5 mg/dL Low 1.6 - 2.4 mg/dL [facility] Otheron 05-31-2020 Interpretation and review of laboratory results Normal [facility] PT/INRon 05-31-2020 INR Coag (PPP) [Relative time] 1.2 {INR} High [facility] Interpretation and review of laboratory results Abnormal [facility] PT Coag (PPP) [Time] 14.4 s High [facility] During the induction phase of oral anticoagulation, the INR may not reflect the anticoagulation status of the patient. Therapeutic ranges for INR's are: Most clinical situations: INR 2.0-3.0 Mechanical Prosthetic Valve: INR 2.5-3.5 Critical: INR >5.[address] [facility] Phosphoruson 05-31-2020 Phosphate [Mass/Vol] 3.8 mg/dL 2.7 - 4.5 mg/dL [facility] Sedimentation Rateon 020 ESR (Bld) [Velocity] 12 mm/h [facility] Interpretation and review of laboratory results Normal [facility] BMPon 05-30-2020 Anion gap [Moles/Vol] 13 mmol/L 10 - 20 mmol/L [facility] Calcium [Mass/Vol] 8.6 mg/dL 8.4 - 10.2 mg/dL [facility] Chloride [Moles/Vol] 96 mmol/L Low 98 - 108 mmol/L [facility] Creatinine [Mass/Vol] 0.70 mg/dL 0.40 - 1.[address] [facility] GFR/1.73 sq M predicted among non-blacks MDRD (S/P/Bld) [Vol rate/Area] The eGFR should be used for monitoring renal function only and not for medication dosing. [facility] GFR/1.73 sq M.predicted CKD-EPI (S/P/Bld) [Vol rate/Area] 115 >=60 mL/min/1.[address] [facility] Glucose [Mass/Vol] 112 mg/dL High 65 - 99 mg/dL [facility] HCO3 [Moles/Vol] 29 mmol/L 21 - 32 mmol/L [facility] Interpretation and review of laboratory results Abnormal [facility] Potassium [Moles/Vol] 2.6 mmol/L Critically low 3.5 - 5.1 mmol/L [facility] Sodium [Moles/Vol] 135 mmol/L 135 - 145 mmol/L [facility] Urea nitrogen [Mass/Vol] 8 mg/dL 8 - 25 mg/dL [facility] Urea nitrogen/Creatinine [Mass ratio] 11.4 mg/mg [facility] CBC WITH AUTO DIFFERENTIALon 05-30-2020 Basophils (Bld) [#/Vol] 0.01 10*3/uL [facility] Basophils/100 WBC (Bld) 0.3 % [facility] Eosinophils (Bld) [#/Vol] 0.02 10*3/uL [facility] Eosinophils/100 WBC (Bld) 0.6 % [facility] Erythrocyte distribution width (RBC) [Entitic vol] 13.7 % 11.6 - 14.8 % [facility] Hematocrit (Bld) [Volume fraction] 38.2 % 36 - 46 % [facility] Hemoglobin (Bld) [Mass/Vol] 13.7 g/dL 12 - 16 g/dL [facility] Immature granulocytes (Bld) [#/Vol] 0.01 10*3/uL [facility] Immature granulocytes/100 WBC (Bld) 0.30 % [facility] Comment on above: The IG parameter is the percentage of metamyelocytes, myelocytes and promyelocytes. An immature granulocyte count (IG) of 1% or more suggests the possibility of infection, an IG count of 3% is very likely related to an infection. Interpretation and review of laboratory results Abnormal [facility] Lymphocytes (Bld) [#/Vol] 0.75 10*3/uL Low [facility] Lymphocytes/100 WBC (Bld) 22.7 % [facility] MCH (RBC) [Entitic mass] 31.3 pg 26 - [address] [facility] MCHC (RBC) [Mass/Vol] 35.9 g/dL 31 - 37 g/dL [facility] MCV (RBC) [Entitic vol] 87.2 fL 80 - [address] [facility] Monocytes (Bld) [#/Vol] 0.36 10*3/uL [facility] Monocytes/100 WBC (Bld) 10.9 % [facility] Neutrophils (Bld) [#/Vol] 2.16 10*3/uL [facility] Neutrophils/100 WBC (Bld) 65.2 % [facility] Nucleated RBC (Bld) [#/Vol] 0.00 10*3/uL [facility] Nucleated RBC/100 WBC (Bld) [Ratio] 0.0 % [facility] Platelet mean volume (Bld) [Entitic vol] 9.3 fL Low 9.4 - 12.[address] [facility] Platelets (Bld) [#/Vol] 381 10*3/uL [facility] RBC (Bld) [#/Vol] 4.38 10*6/uL [facility] WBC (Bld) [#/Vol] 3.31 10*3/uL Low [facility] COVID-19/Influenza A,B Molec ularon 05-30-2020 [facility]ed [facility] Interpretation and review of laboratory results Normal [facility] SARS-CoV-2 Not Detected Not Detected [facility] This test was performed under the FDA's Emergency Use Authorization (EUA). Testing was performed using the Luis fer SARS-CoV-2 & Influenza A/B Nucleic Acid Test on the fer Yamini System. This test has not been approved for use in asymptomatic patients and its performance in this patient population has not been evaluated. Negative results do not rule out the presence of SARS-CoV-2, influenza A, and/or influenza B. Fact sheets for the EUA can be found at the following links: For Healthcare Providers: https://www.fda.gov/ media/204294/downloa d For Patients: https://www.fda.gov/ media/953317/downloa d [facility] CT ABDOMEN PELVIS WITH IV CO NTRAST ONLYon 05-30-2020 CT ABDOMEN PELVIS WITH IV CONTRAST ONLY EXAMINATION: CT ABDOMEN AND PELVIS WITH CONTRAST HISTORY: Abdominal pain, acute, nonlocalized Injury/Trauma or Illness?:Illness/Oth er How long have you had these symptoms (acute/chronic)?:Acu te Reason for exam?:Abdominal pain, acute, nonlocalized Type of Exam?:Initial Additional signs and symptoms?:Patient reports that she has a history of Chron's and is having a flare up . COMPARISON: CT chest, abdomen and pelvis 04/30/2018. TECHNIQUE: Helical CT images of the abdomen and pelvis were obtained after the administration of IOPAMIDOL 76 % INTRAVENOUS SOLUTION - 75 mL,. Dose reduction techniques were achieved by using automated exposure control and/or adjustment of mA and/or kV according to patient size and/or use of iterative reconstruction technique. FINDINGS: LOWER CHEST: Normal. LIVER: Mild focal fatty infiltration near the falciform ligament. GALLBLADDER AND BILIARY SYSTEM: Normal, with no gallstones, or biliary ductal dilation. SPLEEN: Normal. PANCREAS: Normal. ADRENAL GLANDS: Normal. KIDNEYS AND URETERS: Normal. VASCULATURE: Normal. RETROPERITONEUM AND LYMPH NODES: Normal, with no lymphadenopathy. GASTROINTESTINAL TRACT/MESENTERY: There is aueyagqz-wh-jtmxks diffuse wall thickening involving the small bowel extending from the jejunum into the distal and terminal ileum with mural hyperenhancement and surrounding mesenteric stranding and there is also moderate ascites and mesenteric edema. Similar findings are noted on the previous study. There is no definite evidence of fistula or abscess. There are postsurgical changes consistent with partial resection of the distal ileum. Crohn's disease. There are multiple small reactive mesenteric lymph nodes. The appendix is not visualized. BLADDER: Normal. REPRODUCTIVE SYSTEM: Normal uterus and left adnexa. Incidental note is made of a cyst on the right ovary measuring 13 mm. BODY WALL: Normal. BONES: Normal. IMPRESSION: 1. Findings consistent with extensive active Crohn's disease in the small bowel extending to the terminal ileum but no evidence of fistula or abscess. 2. Moderate ascites and mesenteric edema. 3. 13 mm right adnexal cyst, likely a dominant ovarian follicle. [facility] Workstation ID: [id number] Dictated by: JOYA RINCON on WedMay 30, 2020 7:27:23 PM EST Transcribed by: BERT PIEDRA on WedMay 30, 2020 7:33:36 PM EST Finalized by: JOYA RINCON on WedMay 30, 2020 8:00:40 PM EST [facility] Comment on above: Order Comment: Injur y/Trauma or Illness?:Illness/Other How long have you had these symptoms (acute/chronic)?:Acute Reason for exam?:Abdominal pain, acute, nonlocalized Type of Exam?:Initial Additional signs and symptoms?:Patient reports that she has a history of Chron's and is having a flare up CT Abdomen Pelvis With IV Co ntrast Onlyon 05-30-2020 EXAMINATION: CT ABDOMEN AND PELVIS WITH CONTRAST HISTORY: Abdominal pain, acute, nonlocalized Injury/Trauma or Illness?:Illness/Oth er How long have you had these symptoms (acute/chronic)?:Acu te Reason for exam?:Abdominal pain, acute, nonlocalized Type of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 [Ratio] 18.01 kg/m2 Maru Maguire MD Work Phone: [facility] 06-05-2024 08:39-0500 Body weight 52.16 kg Maru Maguire MD Work Phone: [facility] 05-22-2024 13:06-0500 Body height 170.2 cm [facility] 05-22-2024 13:06-0500 Body mass index (BMI) [Ratio] 18.01 kg/m2 [facility] 13:06-0500 Body weight 52.16 kg [email or web address] 05-09-2024 15:18-0500 Respiratory rate 16 /min Mason [facility]more [facility] 05-09-2024 07:45-0500 Body temperature 98.01 [degF] Mason [facility] 05-09-2024 07:45-0500 Diastolic blood pressure 57 mm[Hg] Mason [facility] 05-09-2024 07:45-0500 Heart rate 67 /min Mason Elmore MD Work Phone: [facility] 05-09-2024 07:45-0500 Systolic blood pressure 97 mm[Hg] [facility] 05-09-2024 02:30-0500 SaO2% (BldA) [Mass fraction] 96 % Mason [facility] 05-03-2024 15:01-0400 Body height 168.9 cm [facility] 05-01-2024 21:51-0400 Body mass index (BMI) [Ratio] 19.42 kg/m2 Mason Elmore MD Work Phone: [facility] 05-01-2024 21:51-0400 Body weight 55.4 kg Mason [facility] 04-22-2024 16:17-0400 Body height 168.9 cm Ami Jeter APRN-BROACH TROUBLE SHOOTER [facility] 04-22-2024 16:17-0400 Body mass index (BMI) [Ratio] 19.08 kg/m2 [employer] Short SHOULDER JOINER-BROACH TROUBLE SHOOTER Work Phone: [employer] 04-22-2024 16:17-0400 Body temperature 98.8 [degF] Ami Jeter SHOULDER JOINER-BROACH TROUBLE SHOOTER Work Phone: [facility] 04-22-2024 16:17-0400 Body weight 54.43 kg Ami Jeter SHOULDER JOINER-BROACH TROUBLE SHOOTER Work Phone: [facility] 04-22-2024 16:17-0400 Diastolic blood pressure 76 mm[Hg] Ami Jeter SHOULDER JOINER-BROACH TROUBLE SHOOTER Work Phone: [facility] 04-22-2024 16:17-0400 Heart rate 103 /min Ami Jeter SHOULDER JOINER-BROACH TROUBLE SHOOTER Work Phone: [facility] 04-22-2024 16:17-0400 Respiratory rate 16 /min Ami Jeter SHOULDER JOINER-BROACH TROUBLE SHOOTER Work Phone: [facility] 04-22-2024 16:17-0400 SaO2% (BldA) [Mass fraction] 98 % Ami Jeter APRN-BROACH TROUBLE SHOOTER Work Phone: [facility] 04-22-2024 16:17-0400 Systolic blood pressure 125 mm[Hg] Ami Jeter APRN-BROACH TROUBLE SHOOTER Work Phone: [employer] 11-22-2023 06:39-0400 Diastolic blood pressure 59 mm[Hg] Meet Galindo DO Work Phone: [email or web address] 11-22-2023 06:39-0400 Heart rate 76 /min Meet Galindo DO Work Phone: [email or web address] 11-22-2023 06:39-0400 Respiratory rate 19 /min Meet Galindo DO Work Phone: [email or web address] 11-22-2023 06:39-0400 SaO2% (BldA) [Mass fraction] 100 % Meet Galindo DO Work Phone: [email or web address] 11-22-2023 06:39-0400 Systolic blood pressure 92 mm[Hg] Meet Galindo DO Work Phone: [email or web address] 11-22-2023 05:13-0400 Body temperature 97.5 [degF] Meet Galindo DO Work Phone: [facility] [employer] 11-22-2023 04:48-0400 Body height 167.6 cm Meet Galindo DO Work Phone: [facility] [employer] 11-22-2023 04:48-0400 Body mass index (BMI) [Ratio] 19.69 kg/m2 Meet Galindo DO Work Phone: [facility] [employer] 11-22-2023 04:48-0400 Body weight 55.34 kg Meet Galindo DO Work Phone: [facility] [employer] 08-18-2023 17:02-0500 Body height 168.9 cm Marixa Floyd SHOULDER JOINER-BROACH TROUBLE SHOOTER Work Phone: [employer] 08-18-2023 17:02-0500 Body mass index (BMI) [Ratio] 19.08 kg/m2 Marixa Kadoka SHOULDER JOINER-BROACH TROUBLE SHOOTER Work Phone: [employer] 08-18-2023 17:02-0500 Body temperature 98.2 [degF] Marixa Floyd SHOULDER JOINER-BROACH TROUBLE SHOOTER Work Phone: [employer] 08-18-2023 17:02-0500 Body weight 54.43 kg Marixa Kadoka SHOULDER JOINER-BROACH TROUBLE SHOOTER Work Phone: [employer] 08-18-2023 17:02-0500 Diastolic blood pressure 59 mm[Hg] Marixa Floyd SHOULDER JOINER-BROACH TROUBLE SHOOTER Work Phone: [employer] 08-18-2023 17:02-0500 Heart rate 81 /min Marixa Kadoka SHOULDER JOINER-BROACH TROUBLE SHOOTER Work Phone: [employer] 08-18-2023 17:02-0500 Respiratory rate 16 /min Marixa Kadoka SHOULDER JOINER-BROACH TROUBLE SHOOTER Work Phone: [employer] 08-18-2023 17:02-0500 SaO2% (BldA) [Mass fraction] 100 % Marixa ARENAS Work Phone: [employer] 08-18-2023 17:02-0500 Systolic blood pressure 111 mm[Hg] Marixa ARENAS Work Phone: [employer] 05-26-2023 09:30-0500 Body height 168.91 cm Daliagurjit Apple Other [employer] Other 05-26-2023 09:30-0500 Body mass index (BMI) [Ratio] 20.48 kg/m2 Daliagurjit Apple Other [employer] Other 05-26-2023 09:30-0500 Body temperature 98.2 [degF] Daliagurjit Apple Other [employer] Other 05-26-2023 09:30-0500 Body weight 58.42 kg Dalializzeth Apple Other [employer] Other 05-26-2023 09:30-0500 Diastolic blood pressure 64 mm[Hg] Dalializzeth Apple Other [employer] Other 05-26-2023 09:30-0500 Respiratory rate 18 /min Dalializzeth Apple Other [employer] Other 05-26-2023 09:30-0500 SaO2% (BldA) [Mass fraction] 99 % Daliagurjit Apple Other [employer] Other 05-26-2023 09:30-0500 Systolic blood pressure 94 mm[Hg] Dalia Apple Other [employer] Other 05-13-2023 13:00-0500 Body height 168.91 cm Imad Asaad Other [employer] Other 05-13-2023 13:00-0500 Body mass index (BMI) [Ratio] 20.82 kg/m2 Imad Asaad Other [employer] Other 05-13-2023 13:00-0500 Body weight 59.42 kg Imad Asaad Other [employer] Other 05-13-2023 13:00-0500 Diastolic blood pressure 78 mm[Hg] Imad Asaad Other [employer] Other 05-13-2023 13:00-0500 Respiratory rate 18 /min Imad Asaad Other [employer] Other 05-13-2023 13:00-0500 Systolic blood pressure 114 mm[Hg] Imad Asaad Other [employer] Other 05-05-2023 15:15-0400 Body height 168.91 cm Daliagurjit Apple Other [employer] Other 05-05-2023 15:15-0400 Body mass index (BMI) [Ratio] 20.33 kg/m2 Dalializzeth Apple Other [employer] Other 05-05-2023 15:15-0400 Body temperature 98 [degF] Daliagurjit Apple Other [employer] Other 05-05-2023 15:15-0400 Body weight 58.02 kg Dalia Apple Other [employer] Other 05-05-2023 15:15-0400 Diastolic blood pressure 66 mm[Hg] Dalia Apple Other [employer] Other 05-05-2023 15:15-0400 Respiratory rate 18 /min Dalia Apple Other [employer] Other 05-05-2023 15:15-0400 SaO2% (BldA) [Mass fraction] 98 % Dalia Apple Other [employer] Other 05-05-2023 15:15-0400 Systolic blood pressure 124 mm[Hg] Dalia Apple Other [employer] Other 04-09-2023 11:30-0400 Body height 168.91 cm Dalia Apple Other [employer] Other 04-09-2023 11:30-0400 Body mass index (BMI) [Ratio] 19.28 kg/m2 Dalia Apple Other [employer] Other 04-09-2023 11:30-0400 Body weight 55.02 kg Dalia Apple Other [employer] Other 04-09-2023 11:30-0400 Diastolic blood pressure 74 mm[Hg] Dalia Apple Other [employer] Other 04-09-2023 11:30-0400 Respiratory rate 18 /min Dalia Apple Other [employer] Other 04-09-2023 11:30-0400 SaO2% (BldA) [Mass fraction] 98 % Dalia Apple Other [employer] Other 04-09-2023 11:30-0400 Systolic blood pressure 102 mm[Hg] Dalia Apple Other [employer] Other 02-23-2023 08:15-0400 Body height 168.91 cm Ivonne Schwerer Other [employer] Other 02-23-2023 08:15-0400 Body mass index (BMI) [Ratio] 18.96 kg/m2 Ivonne Schwerer Other [employer] Other 02-23-2023 08:15-0400 Body temperature 97.7 [degF] Ivonne Schwerer Other [employer] Other 02-23-2023 08:15-0400 Body weight 54.11 kg Ivonne Schwerer Other [employer] Other 02-23-2023 08:15-0400 Diastolic blood pressure 62 mm[Hg] Ivonne Schwerer Other [employer] Other 02-23-2023 08:15-0400 Respiratory rate 18 /min Ivonne Schwerer Other [employer] Other 02-23-2023 08:15-0400 SaO2% (BldA) [Mass fraction] 99 % Ivonne Schwerer Other [employer] Other 02-23-2023 08:15-0400 Systolic blood pressure 100 mm[Hg] Ivonne Martinez Other [facility] [employer] Other 02-16-2023 08:35-0400 Diastolic blood pressure 72 mm[Hg] PHYSICIAN NO [facility] 02-16-2023 08:35-0400 Heart rate 58 /min PHYSICIAN NO [facility] 02-16-2023 08:35-0400 Respiratory rate 16 /min PHYSICIAN NO [facility] 02-16-2023 08:35-0400 SaO2% (BldA) [Mass fraction] 100 % PHYSICIAN NO [facility] 02-16-2023 08:35-0400 Systolic blood pressure 105 mm[Hg] PHYSICIAN NO [facility] 02-16-2023 07:58-0400 Body height 168.91 cm PHYSICIAN NO [facility] 02-16-2023 07:58-0400 Body mass index (BMI) [Ratio] 17.6 kg/m2 PHYSICIAN NO [facility] 02-16-2023 07:58-0400 Body weight 50.34 kg PHYSICIAN NO [facility] 02-16-2023 06:44-0400 Body temperature 97.9 [degF] PHYSICIAN NO [facility] 12-31-2022 15:00-0400 Diastolic blood pressure 64 mm[Hg] PHYSICIAN NO [facility] 12-31-2022 15:00-0400 Heart rate 66 /min PHYSICIAN NO [facility] 12-31-2022 15:00-0400 Respiratory rate 18 /min PHYSICIAN NO [facility] 12-31-2022 15:00-0400 SaO2% (BldA) [Mass fraction] 98 % PHYSICIAN NO [facility] 12-31-2022 15:00-0400 Systolic blood pressure 96 mm[Hg] PHYSICIAN NO [facility] 12-31-2022 13:03-0400 Body height 167.64 cm PHYSICIAN NO [facility] 12-31-2022 13:03-0400 Body temperature 97.7 [degF] PHYSICIAN NO [facility] 12-31-2022 13:03-0400 Body weight 49.44 kg PHYSICIAN NO [facility] 12-23-2022 13:00-0400 Body height 168.91 cm Imad Asaad Other [employer] Other 12-23-2022 13:00-0400 Body mass index (BMI) [Ratio] 17.33 kg/m2 Imad Asaad Other [employer] Other 12-23-2022 13:00-0400 Body weight 49.44 kg Imad Asaad Other [employer] Other 12-23-2022 13:00-0400 Diastolic blood pressure 64 mm[Hg] Imad Asaad Other [employer] Other 12-23-2022 13:00-0400 Systolic blood pressure 84 mm[Hg] Imad Asaad Other [employer] Other 12-16-2022 09:00-0400 Body height 168.91 cm Arthur Mcclain Other [employer] Other 12-16-2022 09:00-0400 Body mass index (BMI) [Ratio] 17.65 kg/m2 Arthur Mcclain Other [employer] Other 12-16-2022 09:00-0400 Body weight 50.35 kg Arthur Mcclain Other [employer] Other 12-07-2022 07:30-0400 Body height 168.91 cm Dalia Apple Other [employer] Other 12-07-2022 07:30-0400 Body mass index (BMI) [Ratio] 17.65 kg/m2 Dalia Apple Other [employer] Other 12-07-2022 07:30-0400 Body weight 50.35 kg Dalia Apple Other [employer] Other 12-07-2022 07:30-0400 Diastolic blood pressure 66 mm[Hg] Daliagurjit Apple Other [employer] Other 12-07-2022 07:30-0400 Respiratory rate 18 /min Daila Apple Other [employer] Other 12-07-2022 07:30-0400 SaO2% (BldA) [Mass fraction] 98 % Dalia Apple Other [employer] Other 12-07-2022 07:30-0400 Systolic blood pressure 102 mm[Hg] Dalia Apple Other [employer] Other 12-05-2022 22:52-0400 Body height 168.91 cm PHYSICIAN [facility] 12-05-2022 22:52-0400 Body temperature 97.8 [degF] PHYSICIAN NO [facility] 12-05-2022 22:52-0400 Body weight 50.8 kg PHYSICIAN [facility] 12-05-2022 22:52-0400 Diastolic blood pressure 58 mm[Hg] PHYSICIAN NO [facility] 12-05-2022 22:52-0400 Heart rate 70 /min PHYSICIAN NO [facility] 12-05-2022 22:52-0400 Respiratory rate 16 /min PHYSICIAN NO [facility] 12-05-2022 22:52-0400 SaO2% (BldA) [Mass fraction] 100 % PHYSICIAN NO [facility] 12-05-2022 22:52-0400 Systolic blood pressure 121 mm[Hg] PHYSICIAN JOSEFINA [facility] 09-17-2020 11:54-0400 BMI (Body Mass Index) 19.11 kg/m2 [facility] 09-17-2020 11:54-0400 Body weight 55.34 kg [facility] 09-17-2020 11:54-0400 BP Diastolic 61 mm[Hg] [facility] 09-17-2020 11:54-0400 BP Systolic 91 mm[Hg] [facility] 09-17-2020 11:54-0400 Height 170.2 cm [facility] 09-17-2020 11:54-0400 Pulse (Heart Rate) 80 /min [facility] 09-17-2020 11:54-0400 Pulse Oximetry 97 % [facility] 09-03-2020 15:50-0500 BMI (Body Mass Index) 19.42 kg/m2 [facility] 15:50-0500 Body Temperature 98.01 [degF] [place] 09-03-2020 15:50-0500 Body weight 56.25 kg [place] 09-03-2020 15:50-0500 BP Diastolic 68 mm[Hg] Abdiel [facility] 09-03-2020 15:50-0500 BP Systolic 103 mm[Hg] Abdiel [facility] 09-03-2020 15:50-0500 Height 170.2 cm [place] [facility] 09-03-2020 15:50-0500 Pulse (Heart Rate) 109 /min [place] 09-03-2020 15:50-0500 Pulse Oximetry 99 % Abdiel Smith [facility] 07-18-2020 10:07-0500 BMI (Body Mass Index) 18.32 kg/m2 Abdiel Smith [facility] 07-18-2020 10:07-0500 Body Temperature 97.5 [degF] [facility] 07-[facility] 10:07-0500 Body weight 53.07 kg Abdiel Smith [facility] 07-18-2020 10:07-0500 BP Diastolic 71 mm[Hg] Abdiel Smith [facility] 07-18-2020 10:07-0500 BP Systolic 107 mm[Hg] Abdiel Smith [facility] 07-18-2020 10:07-0500 Height 170.2 cm Abdiel Smith [facility] 07-18-2020 10:07-0500 Pulse (Heart Rate) 103 /min Abdiel Smith [facility] 07-18-2020 10:07-0500 Pulse Oximetry 98 % Abdiel Smith [facility] 06-19-2020 12:04-0500 BMI (Body Mass Index) 18.79 kg/m2 Abdiel Smith [facility] 06-19-2020 12:04-0500 Body Temperature 98.01 [degF] Abdiel Smith [facility] 06-19-2020 12:04-0500 Body weight 54.43 kg Abdiel Smith [facility] 06-19-2020 12:04-0500 BP Diastolic 71 mm[Hg] Abdiel Smith [facility] 06-19-2020 12:04-0500 BP Systolic 105 mm[Hg] Abdiel Smith [facility] 06-19-2020 12:04-0500 Height 170.2 cm [place] Smith [facility] 06-19-2020 12:04-0500 Pulse (Heart Rate) 76 /min [place] Smith [facility] 06-19-2020 12:04-0500 Pulse Oximetry 98 % Abdiel Smith [facility] 06-18-2020 10:28-0500 BMI (Body Mass Index) 18.48 kg/m2 [facility] 06-18-2020 10:28-0500 Body weight 53.52 kg Wvmildred [facility] 06-18-2020 10:28-0500 BP Diastolic 62 mm[Hg] [facility] 06-18-2020 10:28-0500 BP Systolic 96 mm[Hg] [facility] 06-18-2020 10:28-0500 Pulse (Heart Rate) 79 /min [facility] 06-04-2020 13:04-0500 Respiratory Rate 14 /min [facility] 06-04-2020 08:02-0500 Body Temperature 97.9 [degF] [facility] 06-04-2020 08:02-0500 BP Diastolic 65 mm[Hg] [facility] 06-04-2020 08:02-0500 BP Systolic 99 mm[Hg] [facility] 06-04-2020 08:02-0500 Pulse (Heart Rate) 63 /min [facility] 06-04-2020 08:02-0500 Pulse Oximetry 100 % [facility] 06-03-2020 01:06-0500 BMI (Body Mass Index) 18.78 kg/m2 [facility] 06-03-2020 01:06-0500 Body weight 54.[address] [facility] 05-31-2020 00:20-0500 Height 170.[address] [facility] 09-10-2018 18:42-0500 BMI (Body Mass Index) 20.8 kg/m2 [facility] 09-10-2018 18:42-0500 Body Temperature 98.2 [degF] [facility] 09-10-2018 18:42-0500 BP Diastolic 62 mm[Hg] [facility] 09-10-2018 18:42-0500 BP Systolic 96 mm[Hg] [facility] 09-10-2018 18:42-0500 Pulse (Heart Rate) 101 /min [facility] 09-10-2018 18:42-0500 Pulse Oximetry 99 % [facility] 09-10-2018 18:42-0500 Respiratory Rate 18 /min [facility] 09-10-2018 18:42-0500 Weight 60.24 kg [facility] 05-01-2018 14:01-0400 Pulse Oximetry 98 % Edil [facility] 05-01-2018 14:01-0400 Respiratory Rate 16 /min Edil [facility] 05-01-2018 06:16-0400 Body Temperature 97.7 [degF] Edil [facility] 05-01-2018 06:16-0400 BP Diastolic 64 mm[Hg] [facility] 06:16-0400 BP Systolic 102 mm[Hg] [facility] 05-01-2018 06:16-0400 Pulse (Heart Rate) 74 /min Edil [facility] 04-30-2018 11:52-0400 BMI (Body Mass Index) 20.36 kg/m2 Edil [facility] 04-30-2018 11:52-0400 Height 170.2 cm Edil [facility] 04-30-2018 11:52-0400 Weight 58.97 kg [facility] Encounters Encounter Date Encounter Type Care Provider Facility Start: 03-30-[address] [facility] ity:[facility] Start: 03-30-2025 End: 03-30-2025 ambulatory ARMAND KIKO FELIZ Facility:[facility] Start: 03-29-2025 End: 03-29-2025 ambulatory TRE BRIDGES Facility:[facility] Start: 03-27-2025 End: 03-27-2025 ambulatory ARMAND KIKO FELIZ Facility:[facility] Start: 03-22-2025 End: 03-23-2025 ambulatory ARMAND KIKO FELIZ Facility:[facility] Start: 03-22-2025 End: 03-22-2025 ambulatory OBDULIA BONILLA Facility:[facility] Start: 03-16-2025 End: 03-16-2025 ambulatory TRE BRIDGES Facility:[facility] Start: 03-16-2025 End: 03-16-2025 Admission to same day surgery center Tre Bridges APRN.CNP Work Phone: Colorectal Surgery Comment on above: Crohn's disease of b oth small and large intestine with abscess (HCC) (Primary Dx); Nausea; Nausea and vomiting, unspecified vomiting type; Gastro-esophageal reflux disease without esophagitis Start: 03-16-2025 End: 03-16-2025 Telemedicine consultation with patient Tre Bridges APRN.CNP Work Phone: Colorectal Surgery Start: 03-15-2025 End: 03-15-2025 ambulatory ARMAND KIKO FELIZ Facility:[facility] Start: 03-14-2025 End: 03-14-2025 ambulatory ARMAND KIKO FELIZ Facility:[facility] Start: 03-09-2025 End: 03-09-2025 Telephone encounter Armand Piper MD, PhD Work Phone: [facility] Comment on above: Insurance Authorizat ion (Additional information required [id number] ([facility]) - INJECTION, RISANKIZUMAB-RZAA, INTRAVENOUS, 1 MG//) Start: 03-08-2025 End: 03-09-2025 ambulatory ARMAND PIPER Facility:[facility] Start: 03-08-2025 End: 03-09-2025 Patient encounter procedure Armand Piper MD, PhD Work Phone: Gastroenterology Comment on above: Iron deficiency anem ia, unspecified iron deficiency anemia type (Primary Dx); Crohn's disease with complication, unspecified gastrointestinal tract location (HCC); Other fatigue Start: 03-08-2025 End: 03-08-2025 Telephone encounter Armand Piper MD, PhD Work Phone: Gastroenterology Comment on above: Orders Start: 03-07-2025 End: 03-08-2025 ambulatory Gracegeovanna Monterroso [facility] Work Phone: Gastroenterology Comment on above: Crohn's disease with complication, unspecified gastrointestinal tract location (HCC) (Primary Dx) Start: 03-07-2025 End: 03-07-2025 Telemedicine consultation with patient Grace Monterroso [facility] Work Phone: Gastroenterology Start: 03-06-2025 End: 03-07-2025 ambulatory Lab/[place] Sh[facility] Work Phone: Hematology/Oncology Start: 03-06-2025 End: 03-06-2025 Telephone encounter Mariam Dupont PA-C Work Phone: Vascular Medicine Comment on above: Disorders of fluid, electrolyte, and acid-base balance; On total parenteral nutrition (TPN); Leukocytosis, unspecified type Start: 03-06-2025 End: 03-06-2025 Anticoagulant drug monitoring Mariam Dupont PA-C Work Phone: Vascular Medicine Comment on above: Anticoagulation sandy gement encounter (Primary Dx) Start: 03-06-2025 End: 03-06-2025 Telemedicine consultation with patient Mariam Dupont PA-C Work Phone: Vascular Medicine Start: 03-06-2025 End: 03-06-2025 ambulatory MARIAM DUPONT Facility:[facility] Start: 03-02-2025 End: 03-06-2025 ambulatory Nidia Francesco [facility] Start: 03-02-2025 End: 03-02-2025 Patient encounter procedure Nidia Govealey [facility] Comment on above: SPP Inflammatory Con ditions - Treatment Referral (Suni); Insurance Authorization (Prior Auth Submission Pending) Crohn's disease of s mall and large intestines with complication (HCC) (Primary Dx); Disorders of fluid, electrolyte, and acid-base balance; On total parenteral nutrition (TPN); Leukocytosis, unspecified type Encounter for other specified surgical aftercare; Postoperative pain; Diarrhea, unspecified type; Constipation, unspecified constipation type Start: 02-26-2025 End: 02-26-2025 Telephone encounter Elsy Rousseau DO Work Phone: Colorectal Surgery Comment on above: Appointment Start: 02-22-2025 End: 02-23-2025 Orders Only Armand Piper MD, PhD Work Phone: Gastroenterology Start: 02-15-2025 End: 02-15-2025 Telephone encounter Hpn Back Tender Pulp Drier Work Phone: Gastroenterology Comment on above: Hospital Admission ( 02/15/2025 - ) Start: 02-15-2025 End: 02-23-2025 Evaluation and management of inpatient ELSY ROUSSEAU Facility:[facility] Start: 02-14-2025 End: 02-14-2025 Admission to same day surgery center Nurse Pt Ed Cors Work Phone: Colorectal Surgery Comment on above: Pre-Op Exam; Patient Education Crohn's disease of s mall and large intestines with complication (HCC); Disorders of fluid, electrolyte, and acid-base balance; On total parenteral nutrition (TPN) Start: 02-14-2025 End: 02-14-2025 Admission to establishment Lanie Guillen MD Work Phone: [facility] Start: 02-14-2025 End: 02-14-2025 ambulatory Lanie Guillen MD Work Phone: [facility] Comment on above: Crohn's disease of s mall intestine with intestinal obstruction (HCC) [K50.012] (Primary Dx); 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]; Hypotension due to hypovolemia [E86.1] Start: 02-14-2025 End: 02-14-2025 Subsequent hospital visit by physician [facility] Qb1 (I-Stat) Radiology Comment on above: Crohn's disease of s mall and large intestines with complication (HCC) [K50.819] Start: 02-13-2025 End: 02-16-2025 Telephone encounter Christa Stone [facility] Work Phone: [facility] HB[facility] Start: 02-06-2025 End: 02-06-2025 ambulatory SELF Facility:[facility] Start: 01-31-2025 ambulatory ARMAND Hernandez ity:[facility] Start: 01-30-2025 End: 01-30-2025 ambulatory Hpn Back Tender Pulp Drier Work Phone: Gastroenterology Comment on above: Crohn's disease of s mall and large intestines with complication (HCC) (Primary Dx); Disorders of fluid, electrolyte, and acid-base balance; On total parenteral nutrition (TPN); Leukocytosis, unspecified type; Crohn's disease of small intestine with other complication (HCC) Start: 01-24-2025 End: 01-24-2025 Infusion Center Lab/[place] Work Phone: Hematology/Oncology Comment on above: Disorders of fluid, electrolyte, and acid-base balance; On total parenteral nutrition (TPN); Leukocytosis, unspecified type On total parenteral nutrition (TPN) (Primary Dx); Vitamin deficiency; Crohn's disease of small intestine with other complication (HCC) Start: 01-23-2025 End: 01-23-2025 Telephone encounter Armand Piper MD, PhD Work Phone: Gastroenterology Start: 01-17-2025 End: 01-17-2025 Infusion Center Lab/[place] Work Phone: Hematology/Oncology Comment on above: Disorders of fluid, electrolyte, and acid-base balance (Primary Dx); On total parenteral nutrition (TPN); Leukocytosis, unspecified type Start: 01-16-2025 End: 01-16-2025 Infusion Center Lab/[place]ari Work Phone: Hematology/Oncology Comment on above: Disorders of fluid, electrolyte, and acid-base balance; On total parenteral nutrition (TPN); Leukocytosis, unspecified type Start: 01-16-2025 End: 01-16-2025 ambulatory Gracegeovanna Monterroso [facility] Work Phone: Gastroenterology Comment on above: Crohn's disease with complication, unspecified gastrointestinal tract location (HCC) (Primary Dx) Start: 01-16-2025 End: 01-16-2025 Telemedicine consultation with patient Grace Monterroso [facility] Work Phone: Gastroenterology Start: 01-10-2025 End: 01-12-2025 Telephone encounter Hpn Back Tender Pulp Drier Work Phone: Gastroenterology Comment on above: Orders Start: 01-09-2025 End: 01-09-2025 Infusion Center Lab Port/[place] [facility] [place] [facility] Work Phone: Hematology/Oncology Comment on above: Disorders of fluid, electrolyte, and acid-base balance; On total parenteral nutrition (TPN); Leukocytosis, unspecified type Nutrition Assessment On total parenteral nutrition (TPN) (Primary Dx); Malnutrition of mild degree (HCC); Therapeutic drug monitoring; Crohn's disease with other complication, unspecified gastrointestinal tract location (HCC); Presence of ileostomy (HCC); Central venous catheter in place, permanent Start: 01-08-2025 End: 01-10-2025 Chart abstracting Cgrt Dietitian Work Phone: Gastroenterology Start: 01-02-2025 End: 01-03-2025 Infusion Center Chair [address] Work Phone: Hematology/Oncology Comment on above: Crohn's disease of s mall and large intestines with complication (HCC) (Primary Dx); Disorders of fluid, electrolyte, and acid-base balance; On total parenteral nutrition (TPN); Leukocytosis, unspecified type Start: 01-01-2025 End: 01-02-2025 Telephone encounter Hpandria Back Tender Pulp Drier Work Phone: Gastroenterology Comment on above: Results Start: 12-29-2024 End: 12-29-2024 Telephone encounter Jaimie Carrasquillo RD Work Phone: Gastroenterology Comment on above: Patient Update Disorders of fluid, electrolyte, and acid-base balance; On total parenteral nutrition (TPN); Leukocytosis, unspecified type; Selenium deficiency; Toxic effect of manganese or manganese compound, accidental or unintentional, subsequent encounter; Elevated C-reactive protein Start: 12-29-2024 End: 12-29-2024 Patient encounter procedure Mariam Dupont PA-C Work Phone: Vascular Medicine Comment on above: Acute deep vein thro mbosis (DVT) of axillary vein of left upper extremity (HCC) (Primary Dx); Anticoagulation management encounter; Acute deep vein thrombosis (DVT) of brachial vein of right upper extremity (HCC) Start: 12-29-2024 End: 12-29-2024 ambulatory Lab Port/Reece Nash Main Ca 1 Work Phone: Hematology/Oncology Start: 12-27-2024 End: 12-27-2024 Orders Only Armand Piper MD, PhD Work Phone: Gastroenterology Comment on above: Disorders of fluid, electrolyte, and acid-base balance (Primary Dx); Elevated C-reactive protein; Leukocytosis, unspecified type; On total parenteral nutrition (TPN); Toxic effect of manganese or manganese compound, accidental or unintentional, subsequent encounter; Selenium deficiency Start: 12-25-2024 End: 12-25-2024 Nursing evaluation of patient and report Stoma Therapy Work Phone: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 sites axial skel Aracely Lentz PA-C Work Phone: Start: 11-07-2024 Urnls dip stick/tabl et rgnt auto w/o microscopy Bulk Order Provider Start: 08-17-2024 Antibody screen ARMAND PIPER Comment on above: Order Comment: Speci men Type: BLOOD SPECIMENOrdering Facility: [facility] Address: [address] [place] [address] Performed By: #### T SCR ####CC MAIN BLOOD BANKCLIA [id number] [address] Start: 07-30-2024 Antibody screen ARMAND HOOVER FELIZ Comment on above: Order Comment: Speci men Type: BLOOD SPECIMENOrdering Facility: [facility] Address: [address] [place] [address] Performed By: #### T SCR ####CC MAIN BLOOD BANKCLIA [id number] [address] Start: 07-29-2024 Assay of lactate Nereyda Lucas MD Start: 07-29-2024 Radiologic exam abdo men 1 view Nereyda Lucas MD Start: 07-29-2024 End: 07-29-2024 Basic metabolic panel calcium total Eloy Valentin MD Work Phone: Start: 07-29-2024 C-reactive protein Aury Valentin MD Work Phone: Start: 07-28-2024 Basic metabolic pane l calcium total Eloy Valentin MD Work Phone: Start: 07-27-2024 Basic metabolic pane l calcium total Eloy Valentin MD Work Phone: Start: 07-25-2024 Basic metabolic pane l calcium total Eloy Valentin MD Work Phone: Start: 07-24-2024 End: 07-24-2024 Basic metabolic panel calcium total Eloy Valentin MD Work Phone: Start: 07-23-2024 Glucose blood reagent strip London Morales MD Work Phone: Start: 07-23-2024 Basic metabolic pane l calcium total Eloy Valentin MD Work Phone: Start: 07-23-2024 Hepatic function panel Eloy Valentin MD Work Phone: Start: 07-22-2024 Assay of lactate Deja Zamora DO Work Phone: Start: 07-22-2024 Assay of calprotectin fecal Jewel Lizzeth Yolette SHOULDER JOINER - [employer]ACH TROUBLE SHO[employer]ER Work Phone: Start: 07-22-2024 Iadna-dna/rna gi pth gn multiplex probe tq 12-25 Jewel A Yolette SHOULDER JOINER - [employer] TR[employer] SHO[employer]ER Work Phone: Start: 07-22-2024 Assay of lactate Elyamm ad Mashaleh DO Work Phone: Start: 07-22-2024 Comprehensive metabo lic panel Eloy Valentin MD Work Phone: Start: 07-21-2024 Radiologic exam abdo men 1 view Flor Acevedo Haley DO Work Phone: Start: 07-21-2024 Assay of lactate Elyamm ad Oswaldohaleh DO Work Phone: Start: 07-21-2024 Assay of lactate Mohamm ad Mashaleh DO Work Phone: Start: 07-21-2024 Assay of lactate Mohamm ad Oswaldohaleh DO Work Phone: Start: 07-21-2024 C-reactive protein Jewe l A Yolette SHOULDER JOINER - [employer] TR[employer] SH[employer]ER Work Phone: Start: 07-20-2024 Assay of lactate Elyamm ad Oswaldohaleh DO Work Phone: Start: 07-20-2024 Assay of lactate Flor E Haley DO Work Phone: Start: 07-20-2024 Radiologic exam abdo men 1 view Fartun P Tram DO Work Phone: Start: 07-20-2024 Assay of ferritin Jza Miester SHOULDER JOINER - GEOPHYSICAL DRAFTER Work Phone: Start: 07-20-2024 BASIC METABOLIC PANE L W/ REFLEX TO MG FOR LOW K Jaz Miester SHOULDER JOINER - GEOPHYSICAL DRAFTER Work Phone: Start: 07-20-2024 C-reactive protein Jewe l A Yolette SHOULDER JOINER - [employer]ER Work Phone: Start: 07-19-2024 Assay of lactate Fartun P Tram DO Work Phone: Start: 07-19-2024 C-reactive protein Tamia Moreau Yolette SHOULDER JOINER - [employer] TR[employer] SHO[employer]ER Work Phone: Start: 07-19-2024 Sedimentation rate r bc automated Leroy De La Vega SHOULDER JOINER - [employer] TR[employer]ER Work Phone: Start: 07-19-2024 Ct abdomen & pelvis w/contrast material Fransisco Aragon DO Work Phone: Start: 07-19-2024 Urinalysis microscopic only Fransisco Aragon DO Work Phone: Start: 07-19-2024 Urnls dip stick/tabl et rgnt auto w/o microscopy Fransisco Aragon DO Work Phone: Start: 07-19-2024 Comprehensive metabo lic panel Fransisco Aragon DO Work Phone: Start: 06-05-2024 Urine test visual color cmprsn yeni Maguire MD Work Phone: Start: 06-05-2024 Colonoscopy Fartun ornelas MD Work Phone: Start: 05-08-2024 Assay of ferritin Allen Gainesman DO Work Phone: Start: 05-07-2024 Toxin/antitoxin assa y tissue culture Tanya Mercado MD Work Phone: Start: 05-07-2024 End: 05-07-2024 Blood count complete auto&auto difrntl wbc Ashley Loyola DO Work Phone: Start: 05-07-2024 VITAMIN B12 & FOLATE Da mamta Loyola DO Work Phone: Start: 05-06-2024 Ct abdomen & pelvis w/o contrast material Jigna R De Dios SHOULDER JOINER - GEOPHYSICAL DRAFTER Work Phone: Start: 05-06-2024 BASIC METABOLIC PANE L W/ REFLEX TO MG FOR LOW K Jigna R De Dios SHOULDER JOINER - GEOPHYSICAL DRAFTER Work Phone: Start: 05-06-2024 Blood count complete auto&auto difrntl wbc Jigna R De Dios SHOULDER JOINER - GEOPHYSICAL DRAFTER Work Phone: Start: 05-05-2024 Potassium serum plas ma/whole blood Alix Acosta SHOULDER JOINER - [employer] TR[employer] SHO[employer]ER Work Phone: Start: 05-05-2024 Basic metabolic pane l calcium total Louis D Kim DO Work Phone: Start: 05-05-2024 Drug screen quantita tive vancomycin Louis D Kim DO Work Phone: Start: 05-05-2024 Assay of calprotectin fecal Tanya Mercado MD Work Phone: Start: 05-04-2024 End: 05-04-2024 Assay of lactate Dru Shannon MD Work Phone: Start: 05-03-2024 Cul bact xcpt urine blood/stool aerobic isol Jose Manuel Torre MD Work Phone: Start: 05-03-2024 Incision & drainage abscess simple/single Tanya Mercado MD Work Phone: Start: 05-03-2024 Basic metabolic pane l calcium total Louis D Kim DO Work Phone: Start: 05-03-2024 Drug screen quantita tive vancomycin Tanya Mercado MD Work Phone: Start: 05-02-2024 Assay of lactate Shaina Shannon MD Work Phone: Start: 05-02-2024 Ct abdomen & pelvis w/contrast material Flor Haley DO Work Phone: Start: 05-02-2024 Assay of lactate Shaina Shannon MD Work Phone: Start: 05-02-2024 Assay of lactate Shaina Shannon MD Work Phone: Start: 05-02-2024 BASIC METABOLIC PANE L W/ REFLEX TO MG FOR LOW K Ashley Schaffer DO Work Phone: Start: 05-02-2024 Hepatic function panel Ashley Schaffer DO Work Phone: Start: 05-01-2024 Dup-scan artl juaquin abdl/pel/scrot&/rpr orgn lmt Mike Andres MD Work Phone: Start: 05-01-2024 Us transvaginal Mike Andres MD Work Phone: Start: 05-01-2024 Assay of lactate Brandy Andres MD Work Phone: Start: 05-01-2024 Urinalysis microscopic only Mike Andres MD Work Phone: Start: 05-01-2024 Urnls dip stick/tabl et rgnt auto w/o microscopy Mike Andres MD Work Phone: Start: 05-01-2024 End: 05-01-2024 CULTURE, BLOOD 1 Mike Andres MD Work Phone: Start: 05-01-2024 Ct abdomen & pelvis w/contrast material Mike Andres MD Work Phone: Start: 05-01-2024 Comprehensive metabo lic panel Mike Andres MD Work Phone: Start: 05-01-2024 Ecg routine ecg w/le ast 12 lds i&r only Mason Elmore MD Work Phone: Start: 11-22-2023 Ct abdomen & pelvis w/contrast material Porfirio Cervantes MD Work Phone: Start: 11-22-2023 Radiologic exam ches t single view Meet Galindo DO Work Phone: Start: 11-22-2023 Comprehensive metabo lic panel Porfirio Cervantes MD Work Phone: Start: 05-05-2023 Urine culture DO Dalia Apple Work Phone: Start: 03-31-2023 CT of small intestine D O Dalia Apple Work Phone: Start: 02-16-2023 Procedure on lower extremity PHYSICIAN NO FAMILY Start: 01-19-2023 MRI of shoulder PHYSICI AN NO FAMILY Start: 12-31-2022 Colonoscopy PHYSICIAN NO FAMILY Start: 12-16-2022 Plain X-ray of left shoulder PHYSICIAN NO FAMILY Start: 12-14-2022 Ultrasonography of b ilateral kidneys PHYSICIAN NO FAMILY Start: 06-19-2020 X-ray of left knee Ct Smith Work Phone: Start: 06-19-2020 Adult depression scr eening assessment Abdiel Smith Start: 06-04-2020 Complete blood count (hemogram) panel - Blood by Automated count [employer] Work Phone: Start: 06-04-2020 X-ray of chest and abdomen Kevin Crockett Work Phone: Start: 06-04-2020 Basic metabolic 1998 panel - Serum or Plasma [employer] Work Phone: Start: 06-04-2020 C reactive protein [Mass/volume] in Serum or Plasma [employer] Work Phone: Start: 06-04-2020 Hepatitis B surface antigen measurement [employer] Work Phone: Start: 06-04-2020 Magnesium [Mass/volu me] in Serum or Plasma [employer] Work Phone: Start: 06-04-2020 Phosphate [Mass/volu me] in Serum or Plasma [employer] Work Phone: Start: 06-03-2020 Gastrointestinal pat hogens DNA and RNA panel - Stool by CARLOTTA with non-probe detection Ángel Fofana Work Phone: Start: 06-03-2020 Basic metabolic 2000 panel - Serum or Plasma Sileshi Natanaelu Hugo Work Phone: Start: 06-03-2020 Magnesium [Mass/volu me] in Serum or Plasma Maria Fernandaeshi Natanaelu Hugo Work Phone: Start: 06-02-2020 CT of abdomen and pelvis Kelseyi Natanaelu Hugo Work Phone: Start: 06-02-2020 Basic metabolic 2000 panel - Serum or Plasma Marcial Arias Work Phone: Start: 06-02-2020 Complete blood count (hemogram) panel - Blood by Automated count Marcial Arias Work Phone: Start: 06-01-2020 X-ray of chest and abdomen Marcial Arias Work Phone: Start: 05-31-2020 Bilirubin.direct [Mass/volume] in Serum or Plasma Ángel Castelanhin Work Phone: Start: 05-31-2020 Complete blood count with white cell differential, automated Ángel Buttsmedhin Work Phone: Start: 05-31-2020 Complete blood count with white cell differential, manual Ángel Statonn Work Phone: Start: 05-31-2020 Comprehensive metabo lic 2000 panel - Serum or Plasma Ángel Castelanhin Work Phone: Start: 05-31-2020 INR in Platelet poor plasma by Coagulation assay Ángel Fofana Work Phone: Start: 05-31-2020 Magnesium [Mass/volu me] in Serum or Plasma Ángel Buttsmedhin Work Phone: Start: 05-31-2020 Phosphate [Mass/volu me] in Serum or Plasma Ángel Castelanhin Work Phone: Start: 05-30-2020 COVID-19/INFLUENZA A ,B MOLECULAR Geronimo Iliev Work Phone: Start: 05-30-2020 Bacteria identified in Unspecified specimen by Aerobe culture Rahul Crowder Work Phone: Start: 05-30-2020 Urinalysis Rahul Crowder Work Phone: Start: 05-30-2020 12 lead ECG Rahul Crowder Work Phone: Start: 05-30-2020 Ct abdomen & pelvis w/contrast material Rahul Crowder Work Phone: Start: 05-30-2020 Basic metabolic 2000 panel - Serum or Plasma Rahul Crowder Work Phone: Start: 05-30-2020 C reactive protein [Mass/volume] in Serum or Plasma Ángel Fofana Work Phone: Start: 05-30-2020 Complete blood count with white cell differential, automated Rahul Crowder Work Phone: Start: 05-30-2020 Complete blood count with white cell differential, manual Rahul Crowder Work Phone: Start: 05-30-2020 Erythrocyte sediment ation rate by Westergren method Ángel Fofana Work Phone: Start: 05-30-2020 Hepatic function 200 0 panel - Serum or Plasma Rahul Crowder Work Phone: Start: 05-30-2020 LAVENDER TOP Rahul Crowder Work Phone: Start: 05-30-2020 LIGHT BLUE TOP Rahul Crowder Work Phone: Start: 05-30-2020 LIGHT GREEN TOP Rahul Crowder Work Phone: Start: 05-30-2020 Lipase [Enzymatic activity/volume] in Serum or Plasma Rahul Crowder Work Phone: Start: 05-30-2020 MINT GREEN TOP Rahul Crowder Work Phone: Start: 05-30-2020 RAINBOW DRAW Rahul Crowder Work Phone: Start: 09-11-2018 12 lead ECG Ashley Al Work Phone: Start: 05-01-2018 End: 05-01-2018 Basic metabolic 2000 panel - Serum or Plasma Neela Sandoval Work Phone: Start: 05-01-2018 End: 05-01-2018 Complete blood count (hemogram) panel - Blood by Automated count Neela Sandoval Work Phone: Start: 05-01-2018 End: 05-01-2018 Radiologic exam chest single view eNela Sandoval Work Phone: Start: 04-30-2018 End: 04-30-2018 Urinalysis Mally Lange Work Phone: Start: 04-30-2018 End: 04-30-2018 Choriogonadotropin ( test) [Presence] in Urine Mally Lange Work Phone: Start: 04-30-2018 End: 04-30-2018 Drugs of abuse urine screening test Mally Lange Work Phone: Start: 04-30-2018 End: 04-30-2018 RAINBOW DRAW Edil Moreira Work Phone: Start: 04-30-2018 End: 04-30-2018 URINE CONTAINER Edil Moreira Work Phone: Start: 04-30-2018 End: 04-30-2018 3d rendering w/interp&postproc diff work station Mally Lange Work Phone: Start: 04-30-2018 End: 04-30-2018 Radex forearm 2 views Mally Lange Work Phone: Start: 04-30-2018 End: 04-30-2018 Radex elbow complete minimum 3 views Mally Lange Work Phone: Start: 04-30-2018 End: 04-30-2018 Radex wrist complete minimum 3 views Mally Lange Work Phone: Start: 04-30-2018 End: 04-30-2018 Computerized tomography of neck, thorax, abdomen and pelvis Mally Lange Work Phone: Start: 04-30-2018 End: 04-30-2018 Computed tomography angiography of head and neck Mally Lange Work Phone: Start: 04-30-2018 End: 04-30-2018 Basic metabolic 2000 panel - Serum or Plasma Mally Lange Work Phone: Start: 04-30-2018 End: 04-30-2018 Blood type and Indirect antibody screen panel - Blood Mally Lange Work Phone: Start: 04-30-2018 End: 04-30-2018 Complete blood count with white cell differential, automated Mally Lange Work Phone: Start: 04-30-2018 End: 04-30-2018 Complete blood count with white cell differential, manual Mally Lange Work Phone: Start: 04-30-2018 End: 04-30-2018 Ethanol [Mass/volume] in Serum or Plasma Mally Lange Work Phone: Start: 04-30-2018 End: 04-30-2018 INR in Platelet poor plasma by Coagulation assay Mally Lange Work Phone: Start: 04-30-2018 End: 04-30-2018 Lactate [Moles/volume] in Serum or Plasma Mally Lange Work Phone: Start: 04-30-2018 End: 04-30-2018 LIGHT GREEN TOP Edil Moreira Work Phone: Start: 04-30-2018 End: 04-30-2018 RAINBOW DRAW Edil Moreira Work Phone: Start: 04-30-2018 End: 04-30-2018 INR in Blood by Coagulation assay [facility] Start: 04-30-2018 End: 04-30-2018 Radiologic examination pelvis 1/2 views Mally Lange Work Phone: Start: 04-30-2018 End: 04-30-2018 Radiologic exam chest single view Mally Lange Work Phone: Start: 04-06-2014 Microscopic observat ion [Identifier] in Cervix by Cyto stain Geronimo Iliev H/O: ileostomy Ileostomy status (HCC) Chantel Cottrell SHOULDER JOINER.BROACH TROUBLE SHOOTER Work Phone: H/O: surgery History of excis ion of mass PHYSICIAN NO FAMILY Plan of Treatment Date Care Activity Detail Author Start: 09-12-2052 Pneumococcal Vaccine: Ped or At-Risk (2 of 2 - PPSV23) Pneumococcal Vaccine: Ped or At-Risk (2 of 2 - PPSV23) [facility] Start: 06-05-2025 Screening for malignant neoplasm of colon [facility] Start: 05-23-2025 End: 05-23-2025 Patient encounter procedure 05/23/2025 3:00 PM EST Office Visit Colorectal Surgery [address] [address] Elsy Rousseau DO [address] [place], [place] [id number] POST OP Colorectal Surgery Comment on above: POST OP Start: 05-21-2025 End: 05-21-2025 Patient encounter procedure 05/21/2025 2:30 PM EST Office Visit Colorectal Surgery [address] [address] Elsy Rousseau DO [address] [place], [place] [id number] POST OP Colorectal Surgery Comment on above: POST OP Start: 05-07-2025 End: 05-07-2025 ambulatory 05/07/2025 2:30 PM EST [facility] Vascular Medicine [address] [place] [address] Mariam Dupont, PAAura [address] [place] [address] DX: DVT Vascular Medicine Comment on above: DX: DVT Start: 05-07-2025 Screening for malignant neoplasm of colon FIT/FOBT: Average risk [facility] Start: 04-26-2025 End: 04-26-2025 ambulatory 04/26/2025 1:30 PM EDT [facility] Gastroenterology [address] [address] Armand Rios MD, PhD [address] [place] [address] 4 week f/u Gastroenterology Comment on above: 4 week f/u Start: 04-22-2025 Adult BMI Screening Adult BMI Screening [facility] Start: 04-22-2025 Tobacco Screening Tobacco Screening [facility] Start: 03-30-2025 End: 03-30-2025 Patient encounter procedure 03/30/2025 12:00 PM EDT Office Visit Gastroenterology [address] [address] Grace Monterroso, RP [address] [place] [address] Skyrizi OBI teaching Gastroenterology Comment on above: Skyrizi OBI teaching Start: 03-22-2025 End: 03-22-2025 ambulatory 03/22/2025 4:00 PM EDT Specialty Pharmacy [facility] [address] [place] [id number] Pharmacist, [facility] [address] [place] [id number] delayed Skyrizi OBI OB - due 03/30 [facility] Comment on above: delayed Skyrizi OBI OB - due 03/30 Start: 03-16-2025 End: 03-16-2025 Admission to same day surgery center 03/16/2025 8:30 AM EDT [facility] Colorectal Surgery [address] [address] Tre Bridges APRN.BROACH TROUBLE SHOOTER [address] [place] [address] POST OP Colorectal Surgery Comment on above: POST OP Start: 03-15-2025 End: 03-15-2025 ambulatory 03/15/2025 2:00 PM EDT [facility] Psychology [address] [place] [id number] Bubba Johnson PSYD [address] [place] [address] IBD Psychology: Dr. Johnson - Recent ostomy take down (crohn's disease) - Fear of eating. Psychology Comment on above: IBD Psychology: Dr. Johnson - Recent ostomy take down (crohn's disease) - Fear of eating. Start: 03-08-2025 End: 03-08-2025 Patient encounter procedure 03/08/2025 2:30 PM EDT Office Visit Gastroenterology [address] [phone] Armand Rios MD, PhD [address] [place], [place] [id number] follow up Gastroenterology Comment on above: follow up Start: 03-08-2025 End: 06-07-2025 Iron and Iron binding capacity panel - Serum or Plasma IRON AND TIBC Lab Routine Iron deficiency anemia, unspecified iron deficiency anemia type Expected: 03/08/2025, Expires: 06/07/2025 [facility] Work Phone: Comment on above: Expected: 03/08/2025, Expires: Start: 03-08-2025 End: 06-07-2025 Thyrotropin [Units/volume] in Serum or Plasma THYROID STIMULATING HORMONE Lab Routine Iron deficiency anemia, unspecified iron deficiency anemia type Crohn's disease with complication, unspecified gastrointestinal tract location (HCC) Other fatigue Expected: 03/08/2025, Expires: 06/07/2025 [facility] Comment on above: Expected: 03/08/2025, Expires: Start: 03-07-2025 End: 03-07-2025 ambulatory 03/07/2025 11:00 AM EDT [facility] Gastroenterology [address] [id number] Grace Monterroso, [facility] [address] [address] Skyrizi f/u Gastroenterology Comment on above: Skyrizi f/u Start: 03-06-2025 End: 03-06-2025 ambulatory 03/06/2025 3:45 PM EDT Infusion Center Hematology/Oncology [address] [place] [address] [place] [address] Port Draw And Weekly Dressing Change [facility] Comment on above: Port Draw And Weekly Dressing Change Hic kman Start: 03-06-2025 End: 03-06-2025 Follow-up encounter 03/06/2025 1:15 PM EDT [facility] Vascular Medicine [address] [place] [address] Mariam Dupont PA-C [address] [place] [address] 2 month follow up Vascular Medicine Comment on above: 2 month follow up Start: 03-05-2025 Influenza vaccination [facility] Start: 03-02-2025 End: 03-02-2025 Patient encounter procedure 03/02/2025 4:00 PM EDT Office Visit Colorectal Surgery [address] [id number] Tre Bridges APRN.BROACH TROUBLE SHOOTER [address] [facility] [place] [address] postop Colorectal Surgery Comment on above: postop Start: 03-02-2025 End: 03-02-2025 ambulatory Hematology/Oncology Comment on above: SKYRIZI / Reece dressing and lab draw Start: 02-26-2025 End: 02-26-2025 ambulatory 02/26/2025 3:15 PM EDT [facility] [address] [place] [address] [place] [address] Port Draw And Weekly Dressing Change [facility] Hematology/Oncology Comment on above: Port Draw And Weekly Dressing Change Hic kman Start: 02-15-2025 End: 02-15-2025 Admission to same day surgery center 02/15/2025 11:29 AM EDT - 02/15/2025 3:59 PM EDT Surgery Admitting [address] [place] [address] Elsy Rousseau DO [address] [place] [address] EXPLORATORY LAPAROTOMY Admitting Comment on above: EXPLORATORY LAPAROTOMY Start: 02-15-2025 End: 02-15-2025 Closure enterostomy lg/small intestine CLOSURE ILEOSTOMY Crohn's disease of small and large intestines with complication (HCC) 02/15/2025 11:29 AM EDT [facility] Start: 02-15-2025 End: 02-15-2025 Exploratory laparotomy celiotomy w/wo biopsy spx EXPLORATORY LAPAROTOMY Crohn's disease of small and large intestines with complication (HCC) 02/15/2025 11:29 AM EDT [facility] Start: 02-15-2025 End: 02-15-2025 Admission to same day surgery center 02/15/2025 9:15 AM EDT - 02/15/2025 1:45 PM EDT Surgery Admitting [address] [place] [address] Elsy Rousseau DO [address] [place] [address] EXPLORATORY LAPAROTOMY Admitting Comment on above: EXPLORATORY LAPAROTOMY Start: 02-15-2025 End: 02-15-2025 Anesthesia consultation 02/15/2025 9:15 AM EDT Anesthesia Event Admitting [address] [place] [address] Obed Landrum MD [address] [place] [address] Admitting Start: 02-15-2025 End: 02-15-2025 Closure enterostomy lg/small intestine [facility] Start: 02-15-2025 End: 02-15-2025 Exploratory laparotomy celiotomy w/wo biopsy spx [facility] Start: 02-15-2025 End: 02-15-2025 Admission to same day surgery center 02/15/2025 7:30 AM EDT - 02/15/2025 11:45 AM EDT Surgery Admitting [address] [place] [address] Elsy Rousseau DO [address] [place] [address] EXPLORATORY LAPAROTOMY Admitting Comment on above: EXPLORATORY LAPAROTOMY Start: 02-15-2025 End: 02-15-2025 Closure enterostomy lg/small intestine CLOSURE ILEOSTOMY Crohn's disease of small and large intestines with complication (HCC) 02/15/2025 7:30 AM EDT [facility] Start: 02-15-2025 End: 02-15-2025 Exploratory laparotomy celiotomy w/wo biopsy spx EXPLORATORY LAPAROTOMY Crohn's disease of small and large intestines with complication (HCC) 02/15/2025 7:30 AM EDT [facility] Start: 02-15-2025 Subsequent hospital visit by physician Admitting Comment on above: Crohn's disease of small and large intes tines with complication (HCC) [K50.919] Start: 02-14-2025 End: 02-14-2025 Admission to same day surgery center Colorectal Surgery Comment on above: preop preop: No BP, NPO Start: 02-14-2025 End: 05-16-2025 CBC panel - Blood by Automated count COMPLETE BLOOD COUNT Lab Routine Crohn's disease of small and large intestines with complication (HCC) Expected: 02/14/2025 (Approximate), Expires: 05/16/2025 [facility] Work Phone: Comment on above: Expected: 02/14/2025 (Approximate), Expi res: 05/16/2025 Start: 02-14-2025 End: 05-16-2025 Comprehensive metabolic 2000 panel - Serum or Plasma COMPREHENSIVE METABOLIC PANEL Lab Routine Crohn's disease of small and large intestines with complication (HCC) Expected: 02/14/2025, Expires: 05/16/2025 [facility] Comment on above: Expected: 02/14/2025, Expires: Start: 02-14-2025 End: 02-14-2025 ambulatory 02/14/2025 1:00 PM EDT [facility] [address] [place] [address] Lanie Guillen MD [address] [place] [address] Pre Op [facility] Comment on above: Pre Op Start: 02-14-2025 End: 02-14-2025 Anesthesia consultation 02/14/2025 12:50 PM EDT PAT Pre Anesthesia [address] [place] [address] 3, Pacc Main [address] [place] [address] Pre Op Pre Anesthesia Comment on above: Pre Op Start: 02-14-2025 End: 02-14-2025 Patient encounter procedure Admitting Comment on above: preop Start: 02-14-2025 End: 02-14-2025 Patient encounter procedure 02/14/2025 10:40 AM EDT Appointment Rad[facility] [address] [facility] [facility] [place] [address] Crohn's disease of small and large intestines with complication (HCC) [K50.819] Radiology Comment on above: Crohn's disease of small and large intes tines with complication (HCC) [K50.819] Start: 02-13-2025 End: 02-13-2025 ambulatory 02/13/2025 2:45 PM EDT [facility] H[facility]Oncology [address] [place] [address] Lab port / Reece Dressing change and lab draw Hematology/Oncology Comment on above: Lab port / Reece Dressing change and l ab draw Start: 02-06-2025 End: 02-06-2025 ambulatory 02/06/2025 2:30 PM EDT [facility] Hematology[facility]Oncology [address] [place] [address] Lab port / Reece Dressing Change and lab draw Hematology/Oncology Comment on above: Lab port / Reece Dressing Change and l ab draw Start: 01-31-2025 End: 01-31-2025 Patient encounter procedure 01/31/2025 11:00 AM EDT Office [place] [address] Surg Reg Appt [employer] [facility] Comment on above: Surg Reg Appt Start: 01-30-2025 End: 01-30-2025 ambulatory Hematology/Oncology Comment on above: SUNI CULP / Teresita bernard and lab draw Start: 01-24-2025 End: 04-25-2025 25-hydroxyvitamin D3 [Mass/volume] in Serum or Plasma VITAMIN D 25 HYDROXY Lab Routine Crohn's disease of small intestine with other complication (HCC) Expected: 01/24/2025, Expires: 04/25/2025 [facility] Work Phone: Comment on above: Expected: 01/24/2025, Expires: Start: 01-24-2025 End: 01-24-2025 ambulatory 01/24/2025 10:15 AM EDT [facility] H[facility]ology[facility]Oncology [address] [place] [address] Lab port / Reece Dressing change and lab draw Hematology/Oncology Comment on above: Lab port / Reece Dressing change and l ab draw Start: 01-23-2025 End: 01-23-2025 ambulatory 01/23/2025 2:30 PM EDT [facility] Hematology[facility]Oncology [address] [place] [address] [place] [address] Lab port / Reece Dressing change and lab draw Hematology/Oncology Comment on above: Lab port / Reece Dressing change and l ab draw Start: 01-17-2025 End: 01-17-2025 ambulatory 01/17/2025 11:15 AM EDT [facility] Hematology[facility]Oncology [address] [place] [address] [place] [address] Lab port / Reece Dressing change and lab draw Hematology/Oncology Comment on above: Lab port / Reece Dressing change and l ab draw Start: 01-16-2025 End: 01-16-2025 ambulatory 01/16/2025 2:30 PM EDT [facility] Hematology/Oncology [address] [place] [address] [place] [address] Lab port / Reece Dressing change and lab draw Hematology/Oncology Comment on above: Lab port / Reece Dressing change and l ab draw Start: 01-16-2025 End: 01-16-2025 ambulatory 01/16/2025 10:30 AM EDT [facility] Gastroenterology [address] [phone] Grace Monterroso, [facility] [address] [phone] Skyrizi f/u Gastroenterology Comment on above: Skkatyizi f/u Start: 01-09-2025 End: 01-09-2025 Patient encounter procedure Gastroenterology Comment on above: HPN/No RD available CGRT page [id number] Start: 01-09-2025 End: 01-09-2025 ambulatory 01/09/2025 12:30 PM EDT Education Gastroenterology [address] [address] Dietitian, Cgrt [address] [place] [address] cgrt page [id number] Gastroenterology Comment on above: cgrt page [id number] Start: 01-02-2025 End: 01-02-2025 ambulatory 01/02/2025 2:30 PM EDT [facility] Center Hematology/Oncology [address] [place] [address] [place] [address] SUNI Hematology/Oncology Comment on above: SKYRIZI Start: 12-29-2024 End: 12-29-2024 Follow-up encounter 12/29/2024 2:30 PM EDT [facility] [address] [place] [address] Mariam Dupont PA-C [address] [place] [address] Follow up Vascular Medicine Comment on above: Follow up Start: 12-29-2024 End: 12-29-2024 ambulatory 12/29/2024 1:15 PM EDT [facility] [address] [place] [address] Mariam Dupont PA-C [address] [place] [address] DX: DVT Vascular Medicine Comment on above: DX: DVT Start: 12-29-2024 End: 12-29-2024 Patient encounter procedure 12/29/2024 11:00 AM EDT Office Visit Vascular Medicine [address] [place] [address] Acute deep vein thrombosis (DVT) of axillary vein of left upper extremity (HCC) ... Vascular Medicine Comment on above: Acute deep vein thrombosis (DVT) of axil miles vein of left upper extremity (HCC) ... Start: 12-27-2024 End: 03-28-2025 C reactive protein [Mass/volume] in Serum or Plasma C-REACTIVE PROTEIN Lab Routine Elevated C-reactive protein On total parenteral nutrition (TPN) Expected: 12/27/2024, Expires: 03/28/2025 [facility] Comment on above: Expected: 12/27/2024, Expires: Start: 12-27-2024 End: 03-28-2025 MANGANESE BLD MANGANESE BLD Lab Routine On total parenteral nutrition (TPN) Toxic effect of manganese or manganese compound, accidental or unintentional, subsequent encounter Expected: 12/27/2024, Expires: 03/28/2025 [facility] Comment on above: Expected: 12/27/2024, Expires: Start: 12-27-2024 End: 03-28-2025 Selenium [Mass/volume] in Blood SELENIUM BLOOD Lab Routine On total parenteral nutrition (TPN) Selenium deficiency Expected: 12/27/2024, Expires: 03/28/2025 [facility] Comment on above: Expected: 12/27/2024, Expires: Start: 12-25-2024 End: 12-25-2024 Nursing evaluation of patient and report 12/25/2024 3:00 PM EDT Nurse Visit Colorectal Surgery [address] [phone] Therapy, Stoma [address] [phone] (Work) Please schedule f/u with Dr. Rousseau in 3 months with stoma nurse. Colorectal Surgery Comment on above: Please schedule f/u with Dr. Rousseau in 3 months with stoma nurse. Start: 12-25-2024 End: 12-25-2024 Patient encounter procedure 12/25/2024 2:30 PM EDT Office Visit Colorectal Surgery [address] [phone] Elsy Rousseau DO [address] [phone] (Work) Please schedule f/u with Dr. Rousseau in 3 months with stoma nurse. Colorectal Surgery Comment on above: Please schedule f/u with Dr. Rousseau in 3 months with stoma nurse. Start: 12-25-2024 End: 12-25-2024 Patient encounter procedure 12/25/2024 11:15 AM EDT Office Visit Dermatology [address] [address] Fartun Carpio MD [address] [place] [address] [facility] [place] Comment on above: [facility] Start: 12-22-2024 End: 12-22-2024 ambulatory 12/22/2024 10:30 AM EDT [facility] [address] [address] KrissGrace higgins [facility] [address] [place] [address] Skyrizi f/u Gastroenterology Comment on above: Skyrizi f/u Start: 12-12-2024 End: 12-12-2024 Patient encounter procedure Gastroenterology Comment on above: hpn page [id number] Start: 12-08-2024 End: 12-08-2024 ambulatory 12/08/2024 11:00 AM EDT [facility] [address] [address] KrissGrace higgins, [facility] [address] [place] [address] Skyrizi f/u Gastroenterology Comment on above: Skyrizi f/u Start: 12-05-2024 End: 12-05-2024 Patient encounter procedure 12/05/2024 2:00 PM EDT Visit (SP) Office Hematology [address] [place] [address] [place] [address] [place] [address] acute DVT on anticoagulation Hematology Comment on above: acute DVT on anticoagulation Start: 11-10-2024 End: 02-09-2025 TYPE AND SCREEN,30 DAY TYPE AND SCREEN,30 DAY Blood Bank Routine Crohn's disease of small and large intestines with complication (HCC) Expected: 11/10/2024, Expires: 02/09/2025 [facility] Comment on above: Expected: 11/10/2024, Expires: Start: 11-07-2024 End: 11-07-2024 Patient encounter procedure Radiology Comment on above: CT ABD/PEL W IVCON Start: 11-07-2024 End: 11-07-2024 Patient encounter procedure 11/07/2024 10:40 AM EDT Appointment Radiology [address] [address] DXA-AXIAL SKELETON Radiology Comment on above: DXA-AXIAL SKELETON Start: 11-07-2024 End: 11-07-2024 Patient encounter procedure 11/07/2024 9:30 AM EDT Office Visit Urology [address] [address] Hiram Patel MD [address] [place] [address] Other urinary incontinence [N39.498] Urology Comment on above: Other urinary incontinence [N39.498] Start: 11-07-2024 End: 11-07-2024 Nursing evaluation of patient and report 11/07/2024 8:15 AM EDT Nurse Visit Colorectal Surgery [address] [address] Therapy, Stoma [address] [place] [address] Stoma Appt, Pt needs to be sized for new bag Colorectal Surgery Comment on above: Stoma Appt, Pt needs to be sized for new bag Start: 11-03-2024 End: 02-02-2025 BLOOD TB SCREEN BLOOD TB SCREEN Lab Routine Crohn's disease of small and large intestines with complication (HCC) Expected: 11/03/2024, Expires: 02/02/2025 [facility] Comment on above: Expected: 11/03/2024, Expires: Start: 11-03-2024 End: 02-02-2025 Hepatitis B virus core Ab [Presence] in Serum HEPATITIS B CORE ANTIBODY TOTAL Lab Routine Crohn's disease of small and large intestines with complication (HCC) Expected: 11/03/2024, Expires: 02/02/2025 [facility] Comment on above: Expected: 11/03/2024, Expires: Start: 11-03-2024 End: 02-02-2025 Hepatitis B virus surface Ab [Presence] in Serum HEPATITIS B SURFACE ANTIBODY Lab Routine Crohn's disease of small and large intestines with complication (HCC) Expected: 11/03/2024, Expires: 02/02/2025 [facility] Work Phone: Comment on above: Expected: 11/03/2024, Expires: Start: 11-03-2024 End: 02-02-2025 Hepatitis B virus surface Ag [Presence] in Serum HEPATITIS B SURFACE ANTIGEN Lab Routine Crohn's disease of small and large intestines with complication (HCC) Expected: 11/03/2024, Expires: 02/02/2025 [facility] Comment on above: Expected: 11/03/2024, Expires: Start: 11-03-2024 End: 11-03-2024 ambulatory 11/03/2024 11:00 AM EDT [facility] Gastroenterology [address] [phone] Grace Monterroso, [facility] [address] [address] Medication Education Gastroenterology Comment on above: Medication Education Start: 10-03-2024 End: 10-03-2024 Patient encounter procedure 10/03/2024 2:00 PM EDT Office Visit Urology [address] [address] Cecil Velazquez MD [address] [place] [address] S09.618 (ICD-10-CM) - Other urinary incontinence Urology Comment on above: N39.498 (ICD-10-CM) - Other urinary inco ntinence Start: 09-28-2024 End: 09-28-2024 Patient encounter procedure 09/28/2024 3:30 PM EDT Office Visit Gastroenterology [address] [address] Armand Rios MD, PhD [address] [place] [address] Follow up post op Gastroenterology Comment on above: Follow up post op Start: 09-28-2024 End: 12-28-2024 25-hydroxyvitamin D3 [Mass/volume] in Serum or Plasma VITAMIN D 25 HYDROXY Lab Routine Crohn's disease of small and large intestines with complication (HCC) Expected: 09/28/2024, Expires: 12/28/2024 [facility] Comment on above: Expected: 09/28/2024, Expires: Start: 09-28-2024 End: 12-28-2024 CBC W Auto Differential panel - Blood COMPLETE BLOOD COUNT AND DIFFERENTIAL Lab Routine Crohn's disease of small and large intestines with complication (HCC) Expected: 09/28/2024, Expires: 12/28/2024 [facility] Comment on above: Expected: 09/28/2024, Expires: Start: 09-28-2024 End: 12-28-2024 Cobalamin (Vitamin B12) [Mass/volume] in Serum or Plasma VITAMIN B12 Lab Routine Crohn's disease of small and large intestines with complication (HCC) Expected: 09/28/2024, Expires: 12/28/2024 [facility] Comment on above: Expected: 09/28/2024, Expires: Start: 09-28-2024 End: 12-28-2024 Comprehensive metabolic 2000 panel - Serum or Plasma COMPREHENSIVE METABOLIC PANEL Lab Routine Crohn's disease of small and large intestines with complication (HCC) Expected: 09/28/2024, Expires: 12/28/2024 [facility] Comment on above: Expected: 09/28/2024, Expires: Start: 09-28-2024 End: 12-28-2024 TPMT PHENOTYPE/ENZYME ACTIVITY TPMT PHENOTYPE/ENZYME ACTIVITY Lab Routine Crohn's disease of small and large intestines with complication (HCC) Expected: 09/28/2024, Expires: 12/28/2024 [facility] Comment on above: Expected: 09/28/2024, Expires: Start: 09-19-2024 End: 09-19-2024 Patient encounter procedure Vascular Medicine Comment on above: Acute deep vein thrombosis (DVT) of axil miles vein of right upper extremity RUE DVT hpn page [id number]/hospi yue discharge Start: 09-18-2024 End: 09-18-2024 Nursing evaluation of patient and report 09/18/2024 3:00 PM EDT Nurse Visit Colorectal Surgery [address] [phone] Therapy, Stoma [address] [phone] Please schedule f/u appt with Dr. Lawson and stoma nurse in [address]. [address] Lawson is unavailable, please schedule with Obdulia Tejeda PA-C and stoma. Colorectal Surgery Comment on above: Please schedule f/u appt with Dr. Woo ayers and stoma nurse in [address] Lawson is unavailable, please schedule with Obdulia Tejeda PA-C and stoma. Start: 09-18-2024 End: 09-18-2024 Patient encounter procedure 09/18/2024 2:00 PM EDT Office Visit Colorectal Surgery [address] [phone] Obdulia Tejeda PA-C [address] [phone] Please schedule f/u appt with Dr. Lawson and stoma nurse in [address]. [address] Lawson is unavailable, please schedule with Obdulia Tejeda PA-C and stoma. Colorectal Surgery Comment on above: Please schedule f/u appt with Dr. Woo ayers and stoma nurse in [address] Hortian is unavailable, please schedule with Obdulia Tejeda PA-C and stoma. Start: 09-18-2024 End: 12-18-2024 Urinalysis complete panel - Urine URINALYSIS (WITH MICROSCOPIC) WITH CULTURE IF INDICATED Lab Routine Other urinary incontinence Expected: 09/18/2024, Expires: 12/18/2024 [facility] Work Phone: Comment on above: Expected: 09/18/2024, Expires: Start: 09-18-2024 End: 08-29-2025 US Upper extremity veins - bilateral US ARM VEIN DVT [facility] Vascular Lab Routine Acute deep vein thrombosis (DVT) of axillary vein of right upper extremity (HCC) Acute deep vein thrombosis (DVT) of brachial vein of right upper extremity (HCC) Expected: 09/18/2024 (Approximate), Expires: 08/29/2025 [facility] Work Phone: Comment on above: Expected: 09/18/2024 (Approximate), Expi res: 08/29/2025 Start: 09-14-2024 End: 09-14-2024 Admission to same day surgery center 09/14/2024 9:00 AM EDT - 09/14/2024 10:00 AM EDT Surgery [facility] Radiology Procedure [address] [place] [address] Ghassan Angulo, SHOULDER JOINER.BROACH TROUBLE SHOOTER [address] [place] [address] LINE/PORT OR WOUND CHECK [facility] Radiology Procedure Comment on above: LINE/PORT OR WOUND CHECK Start: 09-14-2024 End: 09-14-2024 Office outpatient visit 5 minutes LINE/PORT OR WOUND CHECK On total parenteral nutrition 09/14/2024 9:00 AM EDT AV IR Start: 09-14-2024 Subsequent hospital visit by physician 09/14/2024 9:00 AM EDT Hospital Encounter [facility] Radiology Procedure [address] [place] [address] Ghassan Angulo, SHOULDER JOINER.BROACH TROUBLE SHOOTER [address] [place] [address] On total parenteral nutrition [Z78.9] [facility] Radiology Procedure Comment on above: On total parenteral nutrition [Z78.9] Start: 09-05-2024 End: 09-05-2024 Patient encounter procedure Gastroenterology Comment on above: hpn page [id number]/discharge clinic Start: 08-29-2024 End: 08-29-2024 Patient encounter procedure Gastroenterology Comment on above: hpn page [id number] hpn page [id number]/[facility] Start: 08-25-2024 End: 07-29-2025 CT Abdomen and Pelvis W contrast IV CT ABDOMEN PELVIS W IV CONTRAST Additional Contrast? None Imaging Routine Bandemia Abscess of intestine due to Crohn's disease (HCC) Expected: 08/25/2024, Expires: 07/29/2025 [facility] Comment on above: Expected: 08/25/2024, Expires: Start: 08-22-2024 End: 08-22-2024 Patient encounter procedure Radiology Comment on above: Crohn's disease of both small and large intestine with abscess (HCC) [K50.814] CT ENTEROGRAPHY W IVCON crohn's disease Start: 08-15-2024 End: 08-15-2024 Patient encounter procedure 08/15/2024 2:45 PM EST Office Visit [facility] Gastroenterology [address] [facility] [address] [place] [address] Maru Maguire MD [address] [facility] [address] [place] [address] 4 week RTC [facility] Gastroenterology Comment on above: 4 week RTC Start: 08-07-2024 End: 08-07-2024 Patient encounter procedure 08/07/2024 9:30 AM EST Procedure visit [facility] [address] [place] [address] Hugh Cardona MD [address] [place] [address] Cysto-post UDS (08/03) [facility] Comment on above: Cysto-post UDS (08/03) Start: 08-04-2024 End: 11-03-2024 C reactive protein [Mass/volume] in Serum or Plasma C-REACTIVE PROTEIN Lab Routine Crohn's disease of both small and large intestine with abscess (HCC) Expected: 08/04/2024, Expires: 11/03/2024 [facility] Comment on above: Expected: 08/04/2024, Expires: Start: 08-04-2024 End: 11-03-2024 CBC W Auto Differential panel - Blood COMPLETE BLOOD COUNT AND DIFFERENTIAL Lab Routine Crohn's disease of both small and large intestine with abscess (HCC) Expected: 08/04/2024, Expires: 11/03/2024 [facility] Comment on above: Expected: 08/04/2024, Expires: Start: 08-04-2024 End: 11-03-2024 Comprehensive metabolic 2000 panel - Serum or Plasma COMPREHENSIVE METABOLIC PANEL Lab Routine Crohn's disease of both small and large intestine with abscess (HCC) Expected: 08/04/2024, Expires: 11/03/2024 [facility] Comment on above: Expected: 08/04/2024, Expires: Start: 08-03-2024 End: 08-03-2024 Patient encounter procedure 08/03/2024 11:00 AM EST Procedure visit [facility] [address] [place] [address] Bella Leary, SHOULDER JOINER - BROACH TROUBLE SHOOTER [address] [place] [address] UDS [facility] Comment on above: [facility] Start: 07-29-2024 End: 07-29-2025 C-reactive protein C-Reactive Protein Lab Routine Bandemia Abscess of intestine due to Crohn's disease (HCC) Expected: 07/29/2024, Expires: 07/29/2025 [facility] on above: Expected: 07/29/2024, Expires: Start: 07-29-2024 End: 07-29-2025 CBC W Auto Differential panel - Blood CBC with Auto Differential Lab Routine Bandemia Abscess of intestine due to Crohn's disease (HCC) Expected: 07/29/2024, Expires: 07/29/2025 [facility] Comment on above: Expected: 07/29/2024, Expires: Start: 07-29-2024 End: 07-29-2025 Creatinine [Mass/volume] in Serum or Plasma Creatinine Lab Routine Bandemia Abscess of intestine due to Crohn's disease (HCC) Expected: 07/29/2024, Expires: 07/29/2025 [facility] Comment on above: Expected: 07/29/2024, Expires: Start: 06-05-2024 End: 06-05-2025 C-reactive protein C-Reactive Protein Lab Routine Crohn's disease of small intestine with complication (HCC) Expected: 06/05/2024, Expires: 06/05/2025 [facility] Comment on above: Expected: 06/05/2024, Expires: 5 Start: 06-05-2024 End: 06-05-2025 CT Abdomen and Pelvis W contrast IV CT ABDOMEN PELVIS W IV CONTRAST Additional Contrast? Oral Imaging Routine Crohn's disease of small intestine with complication (HCC) Expected: 06/05/2024, Expires: 06/05/2025 [facility] Comment on above: Expected: 06/05/2024, Expires: 5 Start: 06-05-2024 End: 06-05-2024 Admission to same day surgery center 06/05/2024 10:00 AM EST - 06/05/2024 10:30 AM EST Surgery [facility] [address] [place] [address] Maru Maguire MD [address] [facility] [address] [place] [address] COLONOSCOPY DIAGNOSTIC [facility] Comment on above: COLONOSCOPY DIAGNOSTIC Start: 06-05-2024 Subsequent hospital visit by physician 06/05/2024 10:00 AM EST Hospital Encounter [facility] [address] [place] [address] Maru Maguire MD [address] [place] [address] [facility] Start: 06-05-2024 End: 06-05-2024 Colonoscopy flx dx w/collj spec when pfrmd [facility] Start: 05-22-2024 End: 05-22-2024 Patient encounter procedure 05/22/2024 1:15 PM EST Appointment [facility] Pre-Admit Testing [address] [place] [address] OR 04/05 [facility] Pre-[facility]mit Testing Comment on above: OR 04/05 Start: 04-03-2024 [facility] Start: 04-03-2024 Depression Screen [facility] Start: 03-05-2024 COVID-19 Vaccine ( season) COVID[facility] ( season) [facility] Start: 03-05-2024 Covid-19 Vaccine ( season) Covid-19 Vaccine ( season) [facility] Start: 03-05-2024 Influenza vaccination [facility] Start: 02-03-2024 [facility] Start: 05-05-2023 Bacteria identified in Urine by Culture [facility] Start: 03-05-2023 Influenza [facility] Start: 02-16-2023 End: 02-16-2023 [facility] Start: 12-31-2022 [facility] Start: 07-05-2022 Adult BMI Screening Adult BMI Screening [facility] Start: 06-03-2021 Pneumococcal 0-64 years Vaccine (2 of 2 - PCV) Pneumococcal 0-64 years Vaccine (2 of 2 - PCV) [facility] Start: 04-19-2021 Depression Remission Assessment (PHQ9) Depression Remission Assessment (PHQ9) [facility] Start: 03-18-2021 End: 03-18-2021 Patient encounter procedure 03/18/2021 Office Visit Gastroenterology Candy Cardenas MD [address] [place] [address] [phone] [facility] Start: 03-05-2021 Influenza vaccination Sequential Influenza Vaccine (#1) [facility] Start: 01-17-2021 End: 01-17-2021 Office Visit 01/17/2021 Office Visit Gastroenterology Candy Cardenas MD [address] [facility] [place] [address] [phone] [facility] Start: 10-16-2020 End: 10-16-2020 Office Visit 10/16/2020 Office Visit Primary Care Abdiel Smith MD [address] [place] [address] [place] [address] [phone] [facility] Start: 09-23-2020 End: 09-23-2020 Office Visit 09/23/2020 Office Visit Orthopedic Surgery Jose Luis Ribeiro DO [address] [facility] [place] [address] [phone] [facility] Start: 09-18-2020 End: 09-18-2021 CRP [Mass/Vol] CRP, Inflammation Lab Routine Crohn's disease of small intestine without complication (HCC) Expected: 09/18/2020, Expires: 09/18/[address] [facility] Comment on above: Expected: 09/18/2020, Expires: 2 Start: 09-18-2020 End: 09-18-2021 ESR (Bld) [Velocity] Sedimentation Rate Lab Routine Crohn's disease of small intestine without complication (HCC) Expected: 09/18/2020, Expires: 09/18/[address] [facility] Comment on above: Expected: 09/18/2020, Expires: 2 Start: 09-17-2020 End: 09-17-2020 Office Visit 09/17/2020 Office Visit Gastroenterology Candy Cardenas MD [address] [facility] [place] [address] [phone] [facility] Start: 09-16-2020 End: 09-16-2020 Patient Outreach 09/16/2020 Patient Outreach Primary Care [facility] Start: 09-03-2020 End: 09-03-2020 Office Visit 09/03/2020 Office Visit Primary Care Abdiel Smith MD [address] [facility] [place] [address] [phone] [facility] Start: 07-29-2020 End: 07-29-2020 Patient Outreach 07/29/2020 Patient Outreach Primary Care [facility] Start: 07-18-2020 End: 07-18-2020 Office Visit 07/18/2020 Office Visit Primary Care Abdiel Smith MD [address] [facility] [place] [address] [phone] [facility] Start: 06-19-2020 End: 06-19-2020 Office Visit 06/19/2020 Office Visit Primary Care Abdiel Smith MD [address] [facility] [place] [address] [phone] [facility] Start: 03-05-2018 Influenza vaccination SEQUENTIAL INFLUENZA VACCINE (#1) [facility] Start: 03-05-2018 Influenza vaccination given SEQUENTIAL INFLUENZA VACCINE (#1) [facility] Start: 09-12-2017 Screening for malignant neoplasm of cervix [facility] Start: 04-06-2017 Screening for malignant neoplasm of cervix Pap Smear [facility] Start: 02-09-2017 DTaP,Tdap and Td Vaccines (2 - Td or Tdap) DTaP,Tdap and Td Vaccines (2 - Td or Tdap) [facility] Start: 02-09-2017 DTaP/Tdap/Td vaccine (2 - Td or Tdap) DTaP/Tdap/Td vaccine (2 - Td or Tdap) [facility] Start: 02-09-2017 Tetanus vaccination Tetanus: Every [address] [facility] Start: 02-09-2017 Urine microalbumin profile DTaP,Tdap,Td Vaccine (2 - Td or Tdap) [facility] Start: 09-12-2014 HPV Vaccine (1 - 3-dose SCDM series) HPV Vaccine (1 - 3-dose SCDM series) [facility] Start: 09-12-2008 Screening for malignant neoplasm of cervix [facility] Start: 09-12-2006 Hepatitis B vaccine (1 of 3 - 19+ 3-dose series) Hepatitis B vaccine (1 of 3 - 19+ 3-dose series) [facility] Start: 09-12-2005 Anxiety Screening Anxiety Screening [facility] Start: 09-12-2005 Depression Screening Depression Screening [facility] Start: 09-12-2005 Hepatitis C antibody, confirmatory test Hepatitis C Screening [facility] Start: 09-12-2005 Hepatitis C screening [facility] Start: 09-12-2005 HIV screening HIV Screening [facility] Start: 2003 COVID-19 Vaccine (1 of 2) COVID-19 Vaccine (1 of 2) [facility] Start: 2003 COVID-19 Vaccine (1) COVID-19 Vaccine (1) [facility] Start: 09-12-2002 HIV screening [facility] Start: 09-12-2000 Varicella vaccine (1 of 2 - 13+ 2-dose series) Varicella vaccine (1 of 2 - 13+ 2-dose series) [facility] Start: 1999 Adolescent depression screening assessment [facility] Start: 1999 COVID-19 Vaccine (1) COVID-19 Vaccine (1) [facility] Start: 1999 Tobacco Screening Tobacco Screening [facility] Start: 09-12-1990 History and physical examination, annual for health maintenance Wellness Visit [facility] Start: 09-12-1988 Varicella vaccine (1 of 2 - 2-dose childhood series) Varicella vaccine (1 of 2 - 2-dose childhood series) [facility] Start: 03-15-1988 COVID-19 Vaccine (#1) COVID-19 Vaccine (#1) [facility] Start: 1987 Hepatitis B vaccine (1 of 3 - 3-dose series) Hepatitis B vaccine (1 of 3 - 3-dose series) [facility] Start: 1987 Screening for malignant neoplasm of cervix PAP SMEAR [facility] Start: 1987 Screening for malignant neoplasm of colon [facility] Start: 1987 Tetanus vaccination TETANUS EVERY [address] [facility] Start: 1987 Tobacco Counseling Tobacco Counseling [facility] End: 04-30-2018 12 lead electrocardiogram ECG 12 Lead Routine Once for 1 Occurrences starting 04/30/2018 until 04/30/[address] [facility] Comment on above: Once for 1 Occurrences starting 04/30/20 18 until 04/30/2018 25-hydroxyvitamin D3 [Mass/volume] in Serum or Plasma VITAMIN D 25 HYDROXY Lab Routine Crohn's disease of small and large intestines with complication (HCC) 11/07/2024 12:54 PM EDT [facility] 25-hydroxyvitamin D3 [Mass/volume] in Serum or Plasma VITAMIN D 25 HYDROXY Lab Routine Crohn's disease of small intestine with other complication (HCC) 01/30/2025 2:42 PM EDT [facility] Work Phone: End: 10-28-2025 BD DXA TRABECULAR BONE SCORE (TBS) BD DXA TRABECULAR BONE SCORE (TBS) Radiology Routine Crohn's disease of small and large intestines with complication (HCC) 1 Occurrences starting 09/28/2024 until 10/28/2025 [facility] Comment on above: 1 Occurrences starting 09/28/2024 until 10/28/2025 BLOOD TB SCREEN BLOOD TB SCREEN Lab Routine Crohn's disease of small and large intestines with complication (HCC) 11/07/2024 12:54 PM EDT [facility] End: 05-03-2024 C DIFF TOXIN/ANTIGEN C DIFF TOXIN/ANTIGEN Microbiology Routine 36 Hours Expiring for 36 Hours starting 05/03/2024 until 05/03/2024 [facility] Comment on above: 36 Hours Expiring for 36 Hours starting 05/03/2024 until 05/03/2024 End: 05-05-2024 C DIFF TOXIN/ANTIGEN C DIFF TOXIN/ANTIGEN Microbiology Routine 36 Hours Expiring for 36 Hours starting 05/05/2024 until 05/05/2024 [facility] Comment on above: 36 Hours Expiring for 36 Hours starting 05/05/2024 until 05/05/2024 End: 11-22-2023 C-reactive protein [facility] Comment on above: Once for 1 Occurrences starting 11/22/19 until 11/22/2023 Calprotectin [Mass/m ass] in Stool [facility] End: 05-03-2024 Calprotectin Stool Calprotectin Stool Lab Routine One Time for 1 Occurrences starting 05/03/2024 until 05/03/2024 [facility] Comment on above: One Time for 1 Occurrences starting 04/06 until 05/03/2024 End: 07-30-2024 CBC panel - Blood by Automated count CBC Lab Routine Every Other Day for 4 Occurrences starting 07/24/2024 until 07/30/2024, 1 completed [facility] Comment on above: Every Other Day for 4 Occurrences starti ng 07/24/2024 until 07/30/2024, 1 completed End: 12-27-2025 CBC panel - Blood by Automated count COMPLETE BLOOD COUNT Lab Routine Leukocytosis, unspecified type On total parenteral nutrition (TPN) Once per week for 52 Occurrences starting 12/27/2024 until 12/27/2025 [facility] Comment on above: Once per week for 52 Occurrences startin g 12/27/2024 until 12/27/2025 CBC panel - Blood by Automated count COMPLETE BLOOD COUNT Lab Routine Leukocytosis, unspecified type On total parenteral nutrition (TPN) 03/06/2025 4:15 PM EDT [facility] Clostridioides diffi cile toxin genes [Presence] in Stool by CARLOTTA with probe detection CLOSTRIDIUM DIFFICILE TOXIN BY PCR Lab Routine Diarrhea, unspecified type Ordered: 03/08/2025 [facility] Work Phone: Comment on above: Ordered: 03/08/2025 Closure enterostomy lg/small intestine CLOSURE ILEOSTOMY Crohn's disease of small and large intestines with complication (HCC) [facility] End: 09-18-2021 Cobalamin (Vitamin B12) [Mass/Vol] Vitamin B12 Lab Routine Crohn's disease of small intestine without complication (HCC) 1 Occurrences starting 09/18/2020 until 09/18/[address] [facility] Comment on above: 1 Occurrences starting 09/18/2020 until 09/18/2021 End: 06-18-2021 Complete blood count with white cell differential, manual CBC and Differential Lab Routine Crohn's disease of small intestine without complication (HCC) every 2 weeks for 24 Occurrences starting 06/18/2020 until 06/18/[address] [facility] Comment on above: every 2 weeks for 24 Occurrences startin g 06/18/2020 until 06/18/2021 End: 10-29-2021 Complete blood count with white cell differential, manual CBC and Differential Lab Routine Crohn's disease of small intestine without complication (HCC) every 3 months and PRN for 12 Occurrences starting 10/29/2020 until 10/29/[address] [facility] Comment on above: every 3 months and PRN for 12 Occurrence s starting 10/29/2020 until 10/29/2021 End: 06-18-2021 Comprehensive metabolic 2000 panel Comprehensive Metabolic Panel Lab Routine Crohn's disease of small intestine without complication (HCC) every 2 weeks for 24 Occurrences starting 06/18/2020 until 06/18/[address] [facility] Comment on above: every 2 weeks for 24 Occurrences startin g 06/18/2020 until 06/18/2021 End: 10-29-2021 Comprehensive metabolic 2000 panel - Serum or Plasma Comprehensive Metabolic Panel Lab Routine Crohn's disease of small intestine without complication (HCC) every 3 months and PRN for 12 Occurrences starting 10/29/2020 until 10/29/[address] [facility] Comment on above: every 3 months and PRN for 12 Occurrence s starting 10/29/2020 until 10/29/2021 End: 12-27-2025 Comprehensive metabolic 2000 panel - Serum or Plasma COMPREHENSIVE METABOLIC PANEL Lab Routine Disorders of fluid, electrolyte, and acid-base balance On total parenteral nutrition (TPN) Once per week for 52 Occurrences starting 12/27/2024 until 12/27/2025 [facility] Work Phone: Comment on above: Once per week for 52 Occurrences startin g 12/27/2024 until 12/27/2025 Comprehensive metabo lic 2000 panel - Serum or Plasma COMPREHENSIVE METABOLIC PANEL Lab Routine Disorders of fluid, electrolyte, and acid-base balance On total parenteral nutrition (TPN) 03/06/2025 4:15 PM EDT [facility] Work Phone: CT Abdomen and Pelvi s W contrast IV CT ABDOMEN PELVIS W IV CONTRAST Additional Contrast? None Imaging STAT 11/22/2023 6:30 AM EDT [facility] End: 10-28-2025 CT Abdomen and Pelvis W contrast IV CT ABD/PEL W IVCON Radiology Routine Crohn's disease of small and large intestines with complication (HCC) 1 Occurrences starting 09/28/2024 until 10/28/2025 [facility] Comment on above: 1 Occurrences starting 09/28/2024 until 10/28/2025 End: 09-03-2025 CT Small bowel W contrast PO and W contrast IV CT ENTEROGRAPHY W IVCON Radiology Routine Crohn's disease of both small and large intestine with abscess (HCC) Crohn's disease of small and large intestines with complication (HCC) 1 Occurrences starting 08/04/2024 until 09/03/2025 [facility] Work Phone: Comment on above: 1 Occurrences starting 08/04/2024 until 09/03/2025 Culture, Body Fluid (with Gram Stain) Culture, Body Fluid (with Gram Stain) Microbiology Stat [employer] Label print 05/03/2024 6:05 PM EDT [employer] [facility] Work Phone: Cystourethroscopy CYSTO.PANENDO Procedures Routine Feeling of incomplete bladder emptying Mixed stress and urge urinary incontinence 1 Occurrences starting 11/07/2024 [facility] Comment on above: 1 Occurrences starting 11/07/2024 Dup-scan artl juaquin abdl/pel/scrot&/rpr orgn lmt US DUP ABD PEL RETRO SCROT LIMITED Imaging STAT 05/01/2024 7:24 PM EDT [facility] [employer] [facility] End: 10-28-2025 DXA Skeletal system.axial Views for bone density DXA-AXIAL SKELETON Radiology Routine Crohn's disease of small and large intestines with complication (HCC) 1 Occurrences starting 09/28/2024 until 10/28/2025 [facility] Work Phone: Comment on above: 1 Occurrences starting 09/28/2024 until 10/28/2025 ENTERIC BACTERIAL PA RENITA BY PCR ENTERIC BACTERIAL PANEL BY PCR Lab Routine Diarrhea, unspecified type Ordered: 03/08/2025 [facility] Comment on above: Ordered: 03/08/2025 Exploratory laparoto my celiotomy w/wo biopsy spx EXPLORATORY LAPAROTOMY Crohn's disease of small and large intestines with complication (HCC) [facility] End: 09-18-2021 Folate [Mass/Vol] Folate Lab Routine Crohn's disease of small intestine without complication (HCC) 1 Occurrences starting 09/18/2020 until 09/18/[address] [facility] Comment on above: 1 Occurrences starting 09/18/2020 until 09/18/2021 End: 05-07-2024 Gastrointestinal Panel, Molecular [facility] Fetch MD Comment on above: One Time for 1 Occurrences starting 09/2023 until 05/07/2024 Glucose [Mass/volume ] in Serum or Plasma POCT Glucose Point of Care Testing Timed Q6H until discontinued starting 07/22/2024 [facility] Comment on above: Q6H until discontinued starting 07/22/19 Hepatitis B core antibody measurement [facility] Hepatitis B virus co re Ab [Presence] in Serum HEPATITIS B CORE ANTIBODY TOTAL Lab Routine Crohn's disease of small and large intestines with complication (HCC) 11/07/2024 12:54 PM EDT [facility] Hepatitis B virus surface Ab [Presence] in Serum [facility] Hepatitis B virus surface Ab [Presence] in Serum HEPATITIS B SURFACE ANTIBODY Lab Routine Crohn's disease of small and large intestines with complication (HCC) 11/07/2024 12:54 PM EDT [facility] [employer] Work Phone: Hepatitis B virus surface Ag [Presence] in Serum HEPATITIS B SURFACE ANTIGEN Lab Routine Crohn's disease of small and large intestines with complication (HCC) 11/07/2024 12:54 PM EDT [facility] Hepatitis B virus surface Ag [Presence] in Serum or Plasma by Immunoassay [facility] Interferon gamma assay [facility] End: 09-18-2021 Iron measurement Iron Study with Ferritin Lab Routine Crohn's disease of small intestine without complication (HCC) 1 Occurrences starting 09/18/2020 until 09/18/[address] [facility] Comment on above: 1 Occurrences starting 09/18/2020 until 09/18/2021 End: 12-27-2025 Magnesium [Mass/volume] in Serum or Plasma MAGNESIUM Lab Routine Disorders of fluid, electrolyte, and acid-base balance On total parenteral nutrition (TPN) Once per week for 52 Occurrences starting 12/27/2024 until 12/27/2025 [facility] Comment on above: Once per week for 52 Occurrences startin g 12/27/2024 until 12/27/2025 Magnesium [Mass/volu me] in Serum or Plasma MAGNESIUM Lab Routine Disorders of fluid, electrolyte, and acid-base balance On total parenteral nutrition (TPN) 03/06/2025 4:15 PM EDT [facility] MANGANESE BLD MANGANESE BLD La b Routine On total parenteral nutrition (TPN) Toxic effect of manganese or manganese compound, accidental or unintentional, subsequent encounter 12/29/2024 2:02 PM EDT [facility] End: 12-04-2020 MR Knee Left Without Contrast MR Knee Left Without Contrast Imaging Routine Chronic pain of left knee 1 Occurrences starting 09/03/2020 until 12/04/[address] 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 by CD4+ and CD8+ T-cells [Units/volume] corrected for background in Blood [facility] Mycobacterium tuberculosis tuberculin stimulated gamma interferon [Presence] in Blood [facility] Oxygen therapy [Mini mum Data Set] Initiate Oxygen Therapy Protocol Respiratory Care Routine As Needed until discontinued starting 05/01/2024 [facility] Comment on above: As Needed until discontinued starting Oxygen therapy [Mini mum Data Set] Initiate Oxygen Therapy Protocol Respiratory Care Routine As Needed until discontinued starting 06/05/2024 [facility] Work Phone: Comment on above: As Needed until discontinued starting Oxygen therapy [Mini mum Data Set] Initiate Oxygen Therapy Protocol Respiratory Care Routine As Needed until discontinued starting 07/19/2024 [facility] Comment on above: As Needed until discontinued starting Pathology study Surgical Patholo gy Lab Routine Crohn's disease of small and large intestines with complication (HCC) Release Upon Ordering for 1 Occurrences starting 06/05/2024 [facility] [employer] Comment on above: Release Upon Ordering for 1 Occurrences starting 06/05/2024 Patient referral [facility] Work Phone: End: 12-27-2025 Phosphate [Mass/volume] in Serum or Plasma PHOSPHORUS INORGANIC Lab Routine Disorders of fluid, electrolyte, and acid-base balance On total parenteral nutrition (TPN) Once per week for 52 Occurrences starting 12/27/2024 until 12/27/2025 [facility] Comment on above: Once per week for 52 Occurrences startin g 12/27/2024 until 12/27/2025 Phosphate [Mass/volu me] in Serum or Plasma PHOSPHORUS INORGANIC Lab Routine Disorders of fluid, electrolyte, and acid-base balance On total parenteral nutrition (TPN) 03/06/2025 4:15 PM EDT [facility] REFER FOR ADMIT INTERVIEW REFER FOR ADMIT INTERVIEW Procedures Routine Crohn's disease of small and large intestines with complication (HCC) Ordered: 11/10/2024 [facility] Comment on above: Ordered: 11/10/2024 End: 12-10-2025 RF Colon Views W barium contrast MS XR COLON SINGLE CONTRAST Radiology Routine Crohn's disease of small and large intestines with complication (HCC) 1 Occurrences starting 11/10/2024 until 12/10/2025 [facility] Comment on above: 1 Occurrences starting 11/10/2024 until 12/10/2025 Selenium [Mass/volum e] in Blood SELENIUM BLOOD Lab Routine On total parenteral nutrition (TPN) Selenium deficiency 12/29/2024 2:02 PM EDT [facility] Work Phone: End: 06-05-2024 SURGICAL PATHOLOGY REPORT SURGICAL PATHOLOGY REPORT Lab Routine Once for 1 Occurrences starting 06/05/2024 until 06/05/2024 [facility] Comment on above: Once for 1 Occurrences starting 06/05/20 24 until 06/05/2024 Thiopurine Methyltransferase (Activity Profile), RBC Thiopurine Methyltransferase (Activity Profile), RBC Lab Routine 06/04/2020 8:21 AM [facility] TPMT PHENOTYPE/ENZYM E ACTIVITY TPMT PHENOTYPE/ENZYME ACTIVITY Lab Routine Crohn's disease of small and large intestines with complication (HCC) 11/07/2024 12:54 PM EDT [facility] Work Phone: Tuberculosis screening M. Tuberc ulosis by QuantiFERON Lab Routine 06/04/2020 8:21 AM [facility] URODYNAMICS URODYNAMICS Proc edures Routine Feeling of incomplete bladder emptying Mixed stress and urge urinary incontinence Ordered: 11/07/2024 [facility] Work Phone: Comment on above: Ordered: 11/07/2024 End: 09-18-2021 Vitamin D, 25-hydroxy measurement Vitamin D, Total, 25-OH Lab Routine Crohn's disease of small intestine without complication (HCC) 1 Occurrences starting 09/18/2020 until 09/18/[address] [facility] Comment on above: 1 Occurrences starting 09/18/2020 until 09/18/2021 [facility] Immunizations Immunization Date Immunization Notes Care Provider Fa manuel 06-04-2020 influenza virus vaccine, unspecified formulation [facility] Comment on above: Result Comment: 2021: VIS DATE: 02/16/2019 06-04-2020 influenza, injectabl e, quadrivalent, preservative free [facility] 06-03-2020 pneumococcal polysaccharide vaccine, 23 valent [facility] Comment on above: Result Comment: 2021: VIS DATE: 10/26/2014 06-03-2020 pneumococcal vaccine , unspecified formulation [facility] 02-09-2007 tetanus toxoid, reduced diphtheria toxoid, and acellular pertussis vaccine, adsorbed [facility] NEGATED: Highlighted row has not occurred!05-26-2023 Flu Shot - Documentation Purposes Only [facility]ia [employer] Other [employer] Other NEGATED: Highlighted row has not occurred!12-07-2022 influenza, seasonal, injectable [facility]ia [facility] [employer] Other Payers Date Payer Category Payer Self-pay 2022 Medicaid [id number] 2022 Medicaid HMO [employer] [id number] 2019 Medicaid [employer] [facility] MEDICAID [employer] [id number] 2019-Present [id number] 2018 Unknown [employer] 2018-Present 2018 Unknown [employer] xx# [id number] 2018-Present xx# [id number] 2018 Unknown CL# [id number] 1987 Unknown [id number] 1987 Unknown [id number] 1987 Unknown [id number] 1987 Unknown [id number]. 1987 Unknown [id number]. 1987 Unknown [id number] 1987 Unknown [id number] 1987 Unknown [id number] 1987 Unknown [id number] 2.16.840.1.842789.3.579.2.903 1987 Unknown [id number] 2.16.840.1.426780.3.579.2.90 1987 Unknown [id number] 2.16.840.1.001646.3.579.2.90 1987 Unknown [id number] 2.16.840.1.948771.3.579.290 1987 Unknown [id number] 2.16.840.1.047754.3.579.2.90 1987 Unknown [id number] 2.16.840.1.622794.3.579.2.90 1987 Unknown [id number] 2.16.840.1.333108.3.579.2.90 1987 Unknown [id number] 2.16.840.1.670595.3.579.2.903 1987 Unknown [id number] 2.16.840.1.912743.3.579.2. 1987 Unknown [id number] 2.16.840.1.232747.3.579.2.90 1987 Unknown [id number] 2.16.840.1.291291.3.579.2.900 1987 Unknown [id number] 2.16.840.1.455383.3.579.2.727 1987 Unknown [id number] 2.16.840.1.837210.3.579.2.593 1987 Unknown [id number] 2.16.840.1.110548.3.579.2.593 1987 Unknown [id number] 2.16.840.1.382034.3.579.2.593 1987 Unknown [id number] 2.16.840.1.373869.3.579.2.593 1987 Unknown [id number] 2.16.840.1.877288.3.579.2.1286 1987 Unknown [id number] 2.16.840.1.850788.3.579.2.1286 1987 Unknown [id number] 2.16.840.1.543731.3.579.2.1286 1987 Unknown [id number] 2.16.840.1.036352.3.579.2.1286 1987 Unknown [id number] 2.16.840.1.317409.3.579.2.176 1987 Unknown [id number] 2.16.840.1.353264.3.579.2.176 1987 Unknown [id number] 2.16.840.1.987421.3.579.2.175 1987 Unknown [id number] 2.16.840.1.299723.3.579.2.175 1987 Unknown [id number] 2.16.840.1.806457.3.579.2.175 1987 Unknown [id number] 2.16.840.1.753497.3.579.2.175 1987 Unknown [id number] 2.16.840.1.498000.3.579.2.175 1987 Unknown [id number] 2.16.840.1.744636.3.579.2.718 1959 Medicaid [id number] 1959 Unknown [id number] Unknown [id number] 2.16.840.1.276072.3.579.2.531 Unknown [id number] ..840.1.474014.3.579.2.531 Social History Date Type Detail Facility Start: 04-30-2018 End: 04-03-2023 Tobacco smoking status NDIS Current every day smoker [facility] Start: 1985 Sex Assigned At Not on file [facility] Start: 05-31-2020 End: 02-14-2025 Tobacco use and exposure Never used [facility] Start: 05-31-2020 End: 04-22-2024 Alcohol intake Current drinker of alcohol (finding) [facility] Exposure to SARS-CoV -2 (event) Not sure [facility] Start: 06-19-2020 End: 05-22-2024 Tobacco smoking status NDIS Former smoker [facility] Start: 02-16-2023 End: 02-16-2023 History of tobacco use Current smoker [facility] Start: 06-19-2020 End: 09-20-2020 Alcohol intake Lifetime non-drinker (finding) [facility] Start: 06-19-2020 End: 09-17-2020 History SDOH Alcohol Frequency [address] [facility] Start: 06-19-2020 End: 09-17-2020 History SDOH Alcohol Std Drinks [address] [facility] Start: 06-19-2020 End: 09-17-2020 History SDOH Social Connections Get Together [address] [facility] Start: 06-19-2020 End: 09-17-2020 History SDOH Financial [address] [facility] Tobacco smoking status No Smokin g Status Entered [facility] Start: 04-03-2023 End: 07-31-2024 Sex Assigned At Female [facility] Start: 07-05-2021 End: 12-05-2022 Tobacco smoking status NDIS Current some day smoker [facility] Start: 1985 Sex Assigned At Female F [facility] Start: 12-31-2022 Tobacco smoking stat us [facility] Current Light tobacco smoker [facility] History of tobacco use Cigarette Smoker [facility] [employer] Start: 04-03-2023 End: 07-31-2024 History of Social function [facility] [employer] Start: 07-22-2024 Patient Health Questionnaire 9 item (PHQ-9) total score [Reported] 0 [facility] [employer] Start: 04-03-2023 Alcohol Comment occass. [facility] [employer] Has the [employer], [employer], [employer], or water company threatened to shut off services in your home in past 12Mo No [employer] Experience [facility] How often to you hav e a drink containing alcohol? Never [facility] (I/We) worried wheth er (my/our) food would run out before (I/we) got money to buy more. Never true [facility] Start: 05-22-2024 End: 03-08-2025 Alcoholic beverage intake Ex-drinker (finding) [facility] Tobacco smoking stat us NHIS Tobacco smoking consumption unknown [facility] Start: 07-05-2021 End: 08-15-2024 Sex Female (finding) [facility] (I/We) worried wheth er (my/our) food would run out before (I/we) got money to buy more. Sometimes true [facility] In the past 12 month s, was there a time when you were not able to pay the mortgage or rent on time? Yes [facility] Start: 09-18-2024 End: 02-14-2025 Tobacco smoking status NDIS Never smoked tobacco [facility] History of tobacco use Passive smoker [facility] NEGATED: Highlighted rowStart: RAJAN History of tobacco use Passive smoker [facility] Goals Date Patient Goal Desired Activity /State Personal health goal Personal health goal Functional Status Date Assessment Result Facility 08-30-2024 Are you deaf, or do you have serious difficulty hearing No 08/30/2024 2:38 PM Hanane Keene, WAQAS No [facility] 08-30-2024 Are you blind, or do you have serious difficulty seeing, even when wearing glasses No 08/30/2024 2:38 PM Hanane Keene, RN No [facility] 08-30-2024 Do you have serious difficulty walking or climbing stairs No 08/30/2024 2:38 PM Hanane Keene, RN No [facility] 08-30-2024 Do you have difficul ty dressing or bathing No 08/30/2024 2:38 PM Hanane Keene, RN No [facility] 08-30-2024 Because of a physica l, mental, or emotional condition, do you have difficulty doing errands alone such as visiting a physician's office or shopping No 08/30/2024 2:38 PM Hanane Keene, WAQAS No [facility] 08-08-2024 Are you deaf, or do you have serious difficulty hearing No 08/08/2024 12:30 PM Clare Akins RN No [facility] 08-08-2024 Are you blind, or do you have serious difficulty seeing, even when wearing glasses No 08/08/2024 12:30 PM Clare Akins RN No [facility] 08-08-2024 Do you have serious difficulty walking or climbing stairs No 08/08/2024 12:30 PM Clare Akins RN No [facility] 08-08-2024 Do you have difficul ty dressing or bathing No 08/08/2024 12:30 PM Clare Akins RN No [facility] 08-08-2024 Because of a physica l, mental, or emotional condition, do you have difficulty doing errands alone such as visiting a physician's office or shopping No 08/08/2024 12:30 PM Clare Akins RN No [facility] Mental Status Date Assessment Result Facility 08-30-2024 Because of a physica l, mental, or emotional condition, do you have serious difficulty concentrating, remembering, or making decisions No 08/30/2024 2:38 PM Hanane Keene, WAQAS No [facility] 08-08-2024 Because of a physica l, mental, or emotional condition, do you have serious difficulty concentrating, remembering, or making decisions No 08/08/2024 12:30 PM Clare Akins RN No [facility] Clinical Notes 10-30-2020 to 03-30-2025 Patient Tre Pelaez APRN.[employer] - 03/16/2025 8:43 AM EDTTelephone Encounter - rGace Monterroso RP - 03/09/2025 5:06 PM EDTTelephone Encounter - Kriss, Grace, RPh - 03/09/2025 5:06 PM EDT Note Date & Type Note Facility 03-30-2025 Note [facility] 03-30-2025 Note [facility] 03-29-2025 Note [facility] 03-27-2025 Note Borderline elevated. Re-evaluation in 4-6 weeks is recommended if clinically indicated. [facility] Comment on above: Order Comment: Speci men Type: STOOL SPECIMENOrdering Facility: [facility] Address: [address] [place] [address] Result Comment: Inte rpretation:<50.0 ug/g: Gnijlj54.0 ug/g - 120.0 ug/g: Borderline elevated. Re-evaluation in 4-6 weeks is recommended if clinically indicated.>120.0 ug/g: Elevated Performed By: #### [id number] ####[facility] LAB[facility] [id number] [address] [place] 03-22-2025 Note [facility] 03-16-2025 Instructions Tre Bridges APRN.[employer]OACH TROUBLE SH[employer]ER - 03/16/2025 1:27 PM EDT We discussed your recent symptoms of nausea, vomiting, and bloating: - You experienced significant vomiting two nights ago, followed by bloating and discomfort. You reported watery bowel movements and increased gas but no fever. - I suspect your symptoms may be related to irritation or inflammation in your digestive system, possibly exacerbated by your Crohn s disease or dietary triggers. - I prescribed Zofran (4 mg disintegrating tablets) to help manage nausea and vomiting. Take one tablet every 12 hours as needed. This prescription has been sent to your [facility] pharmacy on [facility], with 60 tablets and two refills. - Avoid foods that may irritate your digestive system, such as raw vegetables, garlic, onions, cruciferous vegetables (e.g., broccoli, cauliflower), and beans. - Focus on easily digestible, bland, protein-rich foods. Examples include shredded chicken, soups, or stews made with low-salt broth. Avoid heavy seasonings, butter, or cream-based ingredients. - Consider trying non-dairy protein shakes, such as Owyn (available at [employer], [employer], or [employer]), to help meet your nutritional needs. Avoid consuming more than 25 grams of protein per serving to prevent diarrhea. - If tolerated, you may also try Polish yogurt, kefir, or probiotic capsules to support gut health. Be cautious with kefir, as it contains lactose, which may not be well-tolerated. We discussed your Crohn s disease management: - You are currently on Skyrizi and have completed your loading doses. Your next dose is scheduled for the , when you will receive instructions on how to administer it. - Skyrizi is expected to help reduce inflammation and improve your symptoms over time. It may take several weeks to months to see significant improvement. We discussed your post-surgical recovery: - Your ileostomy site appears to be healing well. It is normal for Steri-Strips to fall off at this stage. - Continue to avoid heavy lifting and strenuous activities. Walking daily is encouraged, as tolerated. We discussed your current nutritional support: - You are receiving TPN (total parenteral nutrition), which is helping to maintain your nutritional status. The goal is to gradually transition to more oral intake and reduce reliance on TPN over time. - Please continue to work with your GI specialist and nutrition team to manage your TPN and dietary needs. Additional instructions: - If your symptoms worsen, such as persistent vomiting, severe abdominal pain, or signs of a blockage, please contact me or your GI specialist immediately. - Let me know if you need additional Zofran or if you experience any new or concerning symptoms. Your care team is here to support you as you recover and manage your Crohn s disease. Please reach out if you have any questions or concerns. Derrick the TRE vang APRN.CNP documented in this encounter [facility] 03-16-2025 Note [facility] 03-16-2025 History of Present illness Narrative Images from the original note were not included. COLORECTAL SURGERY VIRTUAL VISIT FOLLOW UP/post op I have communicated my name and active licensure. The patient's identity and physical location were verified at the time of this visit. Either the patient or their legal communications representative has been informed of the risks and benefits of -- and alternatives to -- treatment through a remote evaluation and consents to proceed with the evaluation remotely. I had a virtual visit with today for follow up of surgery. UPDATED HISTORY: Francine Hobson is a 39 year old female with past medical history sig for Crohn's, and bowel obstruction. Underwent Exploratory laparotomy, excision of previous ileocolic anastomosis, end ileostomy on 08/18/[address] Rousseau. And subsequently on 02/15/25 underwent ileostomy reversal with Dr. Rousseau. Bms a couple of times a day, watery, and a lot of gas. Two nights ago, after eating a single daily meal for 3 consecutive days she developed sudden, severe, non-bloody, non-bilious emesis that persisted throughout the night. She vomited approximately 8 times and was unable to sleep due to persistent nausea and abdominal pain. She was able to take her last remaining Zofran ODT 4 mg which provided relief. Since then, she has been unable to tolerate oral intake and is relying on TPN for nutrition. She describes her abdominal pain as a sensation of sandpaper moving through her stomach, with marked bloating and pressure at her prior surgical incision site, which she describes as feeling like it is trying to bust through. She denies fever and has not had any further emesis since that night, but reports ongoing acid reflux, frequent watery diarrhea (a couple times daily), and increased flatus and belching. She is currently on Skyrizi for Crohn s disease, having just completed her loading doses, and is also taking a PPI and Pepcid for reflux. She had stopped all oral medications after surgery, but has since resumed them per her GI, Dr. Hoover. She notes that her symptoms are often exacerbated by menses, and her most recent episode coincided with her period. She is lactose intolerant and avoids dairy, using lactose-free protein shakes (E[employer]) for supplemental nutrition. She has not yet resumed kombucha, which she previously used for probiotic support, due to concerns about its acidity. She is able to tolerate yogurt, but not oatmeal or mashed potatoes. She is physically active, walking daily with her son, and had been able to walk up to 30 minutes at a time prior to this episode. She is also sexually active and has been able to resume normal activities without difficulty. She is unsure who is managing her TPN, but believes it may be a dietitian or agriculture research director. She is requesting a refill of Zofran ODT 4 mg for nausea. ROS: Constitutional: (-) fever Gastrointestinal: (+) vomiting, (+) nausea, (+) acid reflux, (+) abdominal bloating, (+) abdominal pain, (+) belching, (+) flatulence, (+) watery diarrhea Skin: (+) postoperative scab PHYSICAL FINDINGS OF NOTE: General: awake, alert, no acute distress, appears well-nourished. Central line cord noted right upper chest. HEENT: Tongue with mild white coating Abdominal: non distended. Medical Decision Making: Assessment Assessment & Diagnosis: Francine Hobson is a 39 year old female with hx of Crohn's, s/p 4 weeks ileostomy reversal on 02/15/25. Data Reviewed: Tests & Documents Reviewed/ordered: Review of prior notes from OR, and [employer] messaging I have discussed Francine Hobson's treatment plan and/or results with pt. Treatment plan: 1. Crohn's disease of both small and large intestine with abscess (HCC) (K50.814) 2. Nausea (R11.0) 3. Nausea and vomiting, unspecified vomiting type (R11.2) 4. Gastro-esophageal reflux disease without esophagitis (K21.9) Recent emesis, bloating, and watery diarrhea may represent a Crohn s flare, possibly exacerbated by menses, dietary triggers, or a viral illness. GERD and post-surgical changes may also contribute to symptoms. - Start Zofran ODT 4 mg Q12H PRN nausea/vomiting; 60 tablets with 2 refills. - Encourage bland, easily digestible, protein-forward diet; avoid raw vegetables, high-fat foods, dairy, garlic, onions, cruciferous vegetables, and beans. - Recommend lactose-free protein shakes (e.g., OWYN <=25g protein/serving), kefir, Polish yogurt, or probiotic capsules to support gut microbiome. - Advised to continue Skyrizi as directed by GI. - Continue PPI or H2 sunshine as previously instructed by GI. - - Advised to maintain adequate hydration and avoid dietary triggers. - Follow-up with GI as scheduled; instructed to contact sooner if symptoms worsen or do not improve. Risk of morbidity, mortality and/or complications of treatment plan: clarence I spent a total of 28 minutes on the date of the service which included preparing to see the patient, [id number] patient care, completing clinical documentation, obtaining and/or reviewing separately obtained history, performing a medically appropriate examination, counseling and educating the patient/family/caregiver, ordering medications, tests, or procedures, and communicating results to the patient/family/caregiver. TRE BRIDGES APRN.RONEL [facility] [address] [place], [place] [id number] documented in this encounter [facility] 03-15-2025 Note [facility] 03-09-2025 Telephone encounter Note Therapy plan discontinued as IV treatment is completed. [facility] Work Phone: 03-09-2025 Miscellaneous Notes Therapy plan discontinued as IV treatment is completed. Images from the original note were not included. ARMAND Eaton Can you please look into this template Thanks documented in this encounter [facility] 03-09-2025 Telephone encounter Note Images from the original note were not included. ARMAND Eaton Can you please look into this template Thanks [facility] 03-08-2025 Note [facility] 03-08-2025 History of Present illness Narrative .Follow Up Visit SUBJECTIVE 39 year old female with Crohn's disease here for follow-up. Last seen September 2024. Changes and test results since last visit: - Patient is still struggling with tolerating oral intake due to fear or symptoms. - Had ostomy take down approximately 3 weeks, ongoing diarrhea without rectal bleeding. Fear of eating due to concern of triggering a flare. - Over the past 6 months, has gained 40 lbs. CBC: WBC (k/uL) Date Value 03/06/2025 6.32 Hematocrit (%) Date Value 03/06/2025 31.3 (L) MCV (fL) Date Value 03/06/2025 88.9 Platelet Count (k/uL) Date Value 03/06/2025 369 Lymphocytes % (%) Date Value 02/16/2025 9.9 Hepatic Function Panel: Albumin (g/dL) Date Value 03/06/2025 4.1 Bilirubin, Total (mg/dL) Date Value 03/06/2025 0.3 Bilirubin, Direct (mg/dL) Date Value 02/19/2025 0.3 (H) Alkaline Phosphatase (U/L) Date Value 03/06/2025 102 AST (U/L) Date Value 03/06/2025 18 ALT (U/L) Date Value 03/06/2025 16 Protein, Total (g/dL) Date Value 03/06/2025 7.2 Current Clinical Symptoms # of bowel movements daily: 2-8 # of liquid stools daily: 2-8 Consistency: loose, soft Bloody bowel movements: no Urgency: yes Abdominal pain: yes Abdominal distention: yes Nausea/vomiting: no Weight loss over last 3 months: no General well-being: slightly below average Current Outpatient Medications Medication Sig Dispense Refill risankizumab-rzaa (SKYRIZI) 360 mg/2.4 mL (150 mg/mL) wearable injector Inject 360 mg subcutaneously every 8 weeks. Start 4 weeks after the last infusion dose. 2.4 mL 2 acetaminophen (TYLENOL) 650 mg/20.3 mL soln Take 20.3 mL by mouth every 6 hours as needed for pain. Do not exceed 5 doses in 24 hours. naloxone 4 mg/actuation nasal spray (NARCAN) Use 1 spray in one nostril as needed for overdose. May repeat every 2 to 3 min in alternating nostrils until medical assistance is available 2 each 1 enoxaparin (LOVENOX) 100 mg/mL syrg Inject 0.975 mL subcutaneously once daily. Please inject full contents of syringe daily. 30 each 1 ondansetron orally disintegrating (ZOFRAN ODT) 4 mg disintegrating tablet Take 1 tablet by mouth every 8 hours as needed for nausea/vomiting (first line). [address] (PROTONIX) 40 mg tablet Take 1 tablet by mouth once daily. 30 tablet 2 promethazine (PHENERGAN) 25 mg tablet Take 1 tablet by mouth every 6 hours as needed for nausea/vomiting (second line). 30 tablet 0 amitriptyline (ELAVIL) 25 mg tablet Take 25 mg by mouth daily at bedtime. dicyclomine (BENTYL) 10 mg capsule Take 10 mg by mouth three times a day. Lactobacillus acidophilus (PROBIOTIC ACIDOPHILUS ORAL) Take 1 capsule by mouth once daily Cholecalciferol, Vitamin D3, (VITAMIN D) 25 mcg (1,000 unit) cap Take 1,000 Units by mouth once daily. hydrOXYzine HCl (ATARAX) 25 mg tablet Take 25 mg by mouth three times a day as needed for anxiety. citalopram (CELEXA) 40 mg tablet Take 40 mg by mouth once daily. No current facility-administered medications for this visit. ALLERGIES Allergen Reactions Ibuprofen Other: See Comments Nsaids (Non-Steroid* Other: See Comments PHYSICAL EXAMINATION BP 98/62 Pulse 75 Ht 5' 6.5 (1.69m) Wt 137 lb (62.1kg) SpO2 100% LMP 02/08/2025 BMI 21.78 kg/(m^2). General Appearance: alert, oriented x 3, pleasant and in no acute distress Heart:regular rate and rhythm Abdomen: Not distended. Normal bowel sounds. Soft and non-tender. No masses or organomegaly. Skin: no rashes or lesions Lymph:No cervical, axillary, supraclavicular, or inguinal adenopathy. Assessment IMPRESSION Francine Hobson is a 39 year old female with a PMH of ileocolonic Crohn's disease, s/p ileocecal resection 2005 and intra-abdominal abscess, previously on Humira, self discontinued in 2014 (due to injection route), Rinvoq (self-discontinued in 2022), recent hospitalization with excision of previous ileocolic anastomosis, and end ileostomy on 08/18/2024, TPN, complicated by provoked DVT in DEONDRE (PICC line), who presents to establish care in the IBD clinic at [facility]. #1 Crohn's disease, ileocolonic, penetrating, diagnosed in 2005 #2 Status post ileocolonic resection x 2 (2005, 2024) with end ileostomy #3 TPN #4 DVT left upper extremity, provoked Overall, my assessment is that patient is doing fairly well since ostomy takedown, although endorses mild diarrhea and slow progress of advancing oral intake due to fear of eating. Is still on TPN and hoping to be able to wean off. Is on Skyrizi. Regarding next steps, I recommend continuation of Skyrizi and close follow up. Internal colonoscopy 6 months post ostomy takedown is recommended. Referral to IBD psychology to assist with oral intake fears. PLAN - Continue Skyrizi - Referral to IBD psychology. - Iron studies, TSH - Follow up in 4-6 weeks. - Colonoscopy in 6 months. Armand Piper MD, PhD March 08, 2025 2:54 PM documented in this encounter [facility] 03-08-2025 Telephone encounter Note Images from the original note were not included. Copied from 'd charts 03/08/25 11:24 am Armand Rios MD, PhD Grace Monterroso, [facility]; Gloria Hobbs, FLEET DIRECTOR Al Grace, Thanks for the update. We should rule out C. Difficile. If negative, ok to proceed with loperamide. Gloria, can you find out if patient needs stool tests faxed to her to do locally? Can you j carlos up C. Difficile and enteric panel? TY. Capone C-Diff and enteric bacterial panel stool lab orders pended please advise, Called spoke with patient who stated she is in route to [facility] for an appointment with Dr Hoover. Patient was updated of the plan and stated she will collect the supplies to collect when she is on site. Gloria Hobbs LPN [facility] 03-08-2025 Miscellaneous Notes Images from the original note were not included. Copied from CC'd charts 03/08/25 11:24 am Armand Rios MD, PhD [facility], Grace, [facility]; Gloria Hobbs LPN Al Grace, Anna for the update. We should rule out C. Difficile. If negative, ok to proceed with loperamide. Gloria, can you find out if patient needs stool tests faxed to her to do locally? Can you j carlos up C. Difficile and enteric panel? TY. [place] C-Diff and enteric bacterial panel stool lab orders pended please advise, Called spoke with patient who stated she is in route to [facility] for an appointment with Dr Hoover. Patient was updated of the plan and stated she will collect the supplies to collect when she is on site. Gloria Hobbs LPN documented in this encounter [facility] 03-07-2025 History of Present illness Narrative IBD Medication Consult [facility] Patient consents to pharmacy consult agreement. Patient Name: Francine Joce IBD Provider: Dr. Kiko Piper Reason for consult: efficacy, safety, coordination, health maintenance review, and reconciliation Met with Francine today via phone. She reports: - tolerated Skyrizi infusion well - recovering from surgery, eating soft food/liquid; tried scramble eggs yesterday and didn't go well. Afraid of food. Only connecting with dietitian through TPN - hoping to get off TPN but need to be eating solids first in order to get off this. Incorporating in protein shakes. - last med rec was completed pre-surgery; not taking bowel stoppers currently. Feels today is the worse GI day sx winter so far. Only taking liquid Tylenol PRN, lidocaine patch on original site of stoma - not using oxy, valium. Wonders if discontinuation of pain pills are now leading to diarrhea - Lovenox injections, dose increased to 100 mg to 80 mg, doing okay with this. Doing injection 5 days/week. Don't have someone to administer injection the other 2 days. Has fear of needles, cannot do self-injections but feels she will be able to administer OBI based on prior demo of device - no Imodium since surgery CLINICAL SYMPTOMS # of bowel movements daily: living in bathroom, feels diet may be contributing but not 100%; 5-6 already since 8:15 AM # of liquid stools daily: all Consistency: liquid Bloody bowel movements: no Urgency: yes Abdominal pain: cramping in lower abdomen; pain around old stoma site - lidocaine patch helping Abdominal distention: yes, whenever eating, nellie with mashed potatoes Nausea/vomiting: no; previously nausea (more related to oxy, zofran helped); no vomiting Weight loss over last 3 months: no (138-140 lbs) General well-being: slightly below average SOCIAL HISTORY Tobacco use: no EtOH: No PERTINENT PMH FOR BIOLOGICS/SMALL MOLECULES Personal history of: VTE: Yes, line-related blood clots (on enoxaparin) Cardiac: No Renal dysfunction: No Hepatic dysfunction: No Autoimmune/Demyelinating disease (MS, GBS): No Malignancy: No Family history of: Malignancy: Yes, mother (bladder) PAST MEDICAL HISTORY Diagnosis Date Crohn disease (HCC) PAST SURGICAL HISTORY Procedure Laterality Date BOWEL RESECTION HX PICC LINE INSERT/CONSULT 08/21/2024 Current Outpatient Medications Medication Sig Dispense Refill risankizumab-rzaa (SKYRIZI) 360 mg/2.4 mL (150 mg/mL) wearable injector Inject 360 mg subcutaneously every 8 weeks. Start 4 weeks after the last infusion dose. 2.4 mL 2 acetaminophen (TYLENOL) 650 mg/20.3 mL soln Take 20.3 mL by mouth every 6 hours as needed for pain. Do not exceed 5 doses in 24 hours. oxyCODONE IR (ROXICODONE) 5 mg immediate release tablet Take 2 tablets by mouth every 6 hours as needed for 3 days, THEN 2 tablets every 8 hours as needed for 2 days, THEN 1 tablet every 6 hours as needed for 3 days, THEN 1 tablet every 8 hours as needed for 2 days, THEN 1 tablet every 12 hours as needed for up to 2 days. 58 tablet 0 naloxone 4 mg/actuation nasal spray (NARCAN) Use 1 spray in one nostril as needed for overdose. May repeat every 2 to 3 min in alternating nostrils until medical assistance is available 2 each 1 enoxaparin (LOVENOX) 100 mg/mL syrg Inject 0.975 mL subcutaneously once daily. Please inject full contents of syringe daily. 30 each 1 ondansetron orally disintegrating (ZOFRAN ODT) 4 mg disintegrating tablet Take 1 tablet by mouth every 8 hours as needed for nausea/vomiting (first line). [address] (PROTONIX) 40 mg tablet Take 1 tablet by mouth once daily. 30 tablet 2 promethazine (PHENERGAN) 25 mg tablet Take 1 tablet by mouth every 6 hours as needed for nausea/vomiting (second line). 30 tablet 0 amitriptyline (ELAVIL) 25 mg tablet Take 25 mg by mouth daily at bedtime. dicyclomine (BENTYL) 10 mg capsule Take 10 mg by mouth three times a day. Lactobacillus acidophilus (PROBIOTIC ACIDOPHILUS ORAL) Take 1 capsule by mouth once daily Cholecalciferol, Vitamin D3, (VITAMIN D) 25 mcg (1,000 unit) cap Take 1,000 Units by mouth once daily. hydrOXYzine HCl (ATARAX) 25 mg tablet Take 25 mg by mouth three times a day as needed for anxiety. citalopram (CELEXA) 40 mg tablet Take 40 mg by mouth once daily. No current facility-administered medications for this visit. ALLERGIES Allergen Reactions Ibuprofen Other: See Comments Nsaids (Non-Steroid* Other: See Comments FAMILY HISTORY No family history on file. PERTINENT VITALS AND LABS Weight/BMI: Wt: 54.9 kg (121 lb) BMI: 19.53 kg/(m^2) TB: Lab Results Component Value Date TBGNIL 0.05 11/07/2024 TBGINT 11/07/2024 Infection with M. tuberculosis complex is unlikely. If latent tuberculosis infection is highly suspected, a negative result does not rule out the infection. Specimens from immunocompromised patients and those <5 years of age may show false negative results. In case of a contact investigation, please repeat 8-12 weeks after a known exposure. TBG1AG 0.05 11/07/2024 TBG2AG 0.02 11/07/2024 TBGRES Negative 11/07/2024 TBMITN >9.95 11/07/2024 TPMT: Lab Results Component Value Date TPMTACT 20.2 (L) 11/07/2024 Calprotectin stool/inflammation: No results found for: CALPTN CALPROTECTIN, FECAL QUANTITATIVE Date Value Ref Range Status 07/31/2024 464 (H) <50 ug/g Final CRP Date Value Ref Range Status 02/23/2025 7.0 (H) <0.9 mg/dL Final CBC: WBC (k/uL) Date Value 03/06/2025 6.32 Hemoglobin (g/dL) Date Value 03/06/2025 10.4 (L) Hematocrit (%) Date Value 03/06/2025 31.3 (L) MCV (fL) Date Value 03/06/2025 88.9 Platelet Count (k/uL) Date Value 03/06/2025 369 Lymphocytes % (%) Date Value 02/16/2025 9.9 RENAL/HEPATIC: BUN (mg/dL) Date Value 03/06/2025 22 (H) Creatinine (mg/dL) Date Value 03/06/2025 0.54 (L) Albumin (g/dL) Date Value 03/06/2025 4.1 Bilirubin, Total (mg/dL) Date Value 03/06/2025 0.3 Bilirubin, Direct (mg/dL) Date Value 02/19/2025 0.3 (H) AST (U/L) Date Value 03/06/2025 18 ALT (U/L) Date Value 03/06/2025 16 VITAMIN B12 & D25 Vitamin B12 Date Value Ref Range Status 11/07/2024 423 232 - 1,245 pg/mL Final Vitamin D 25 Hydroxy (ng/mL) Date Value 02/20/2025 31.2 LIPID PANEL: Triglyceride (mg/dL) Date Value 02/20/2025 128 MEDICATION LEVELS Adalimumab: No results found for: ADNEAB , EERADA , ADAACT Infliximab: No results found for: IFXA , IFXT , EERIFX No components found for: INFLIXIMAB TOTAL DRUG LEVEL , INFLIXIMAB TOTAL ANTI-DRUG ANTIBODY LEVEL PULL No results found for: IFXTDM Thiopurine metabolites: No results found for: 6TG No results found for: 6MMP HEALTH MAINTENANCE - declines due to fear of needles Type Date Received Up-to-date Additional notes/comments Dosing COVID-19 No Candidate for updated COVID vaccine Updated COVID vaccine Respiratory syncytial virus (RSV) NA NA One time dose of Arexvy or Abrysvo Pneumococcal Pneumonia PCV13: PPSV23: PCV20: No Candidate for PCV20 One time dose of [id number] Hepatitis A ? No results found for: HEPAIGG Check Hepatitis A titer Two doses given at months 0 and 6 OR Twinrix (combination hep A and B vaccine): three doses given at months 0, 1, and 6 - recommend to check to see if covered by insurance Hepatitis B ? Hepatitis B Core Ab, Total (no units) Date Value 11/07/2024 Negative HBsAg Date Value Ref Range Status 11/07/2024 Negative Negative Final Hep B Surface Ab, Qual (no units) Date Value 11/07/2024 Negative Check Hepatitis B titer Heplisav-B: Two doses given at months 0 and 1 OR Engerix-B, Recombivax-HB: Three doses administered at months 0, 1, and 6 OR Twinrix (combination hep A and B vaccine): three doses given at months 0, 1, and 6 - recommend to check to see if covered by insurance Influenza No Candidate for Counseled to avoid live intranasal formulation Obtain yearly AVOID nasal formulation as it is a live vaccine Zoster recombinant (RZV) No Candidate for Shingrix Varicella titer: No results found for: VZVG Shingrix: two doses given at months 0 and 2 Note: check with your pharmacy to see if this is covered by insurance Tetanus, diphtheria, pertussis (Tdap or Td) No Candidate for One dose Tdap then Td booster every 10 years HPV Females < 45 years old and males < 26 years old; 2 dose series if <15 years old No Candidate for if covered by insurance Gardasil: three doses given at months 0, 2, and 6 Note: check with your pharmacy and insurance to see if this is covered *The above vaccines are inactivated (or non-live). Live vaccines should be avoided while on IBD biologic or small molecule treatments. Up-to-date with PAP smear (annually or Q2 years if HPV negative): Need to assess at next visit Up-to-date with skin check: NA Up-to-date with DEXA scan (low BMI, post-menopausal, steroids >3 months, FHx of osteoporosis, smoking: baseline and repeat Q5 years if initial screen is normal): Yes (November 2024) - low bone density, recommended to endocrinology ASSESSMENT/PLAN Francine Hobson is a 39 year old White female with Crohn's disease [K50.90], diagnosed in 2007. Previously treated with Liadla for 1-2 years (no response), then AZA only. Developed intra-abdominal abscess + SBO and underwent ileocecal resection in 2013. Was on AZA post op and then started Humira in 2014 (stopped 2 years ago due to not wanting injections). Was put on Rinvoq 2022 but was not compliant. Underwent CT 01/2024 showed partial small bowel obstruction. 04/2024 Had a recurrent partial SBO and was admitted at [facility]. CT revealed lower abdominal and pelvic abscess, possible fistula versus narrowing in sigmoid colon. She had aspiration of abscess at [facility] by IR. Was admitted at [facility] 07/2024 and transferred to [facility]. Was hospitalized at [facility] from 08/17/2024 thru 08/30/2024 for Crohn's colitis w/ intestinal obstruction. Underwent ex. lap excision of previous ileocolic anastomosis, and end ileostomy on 08/18/2024. Went to ED on 09/02/24 for concerns of possible occulusion of PICC line and was diagnosed with acute provoked DVT in LUE. Seen again in ED in October 2024 for concerns of potential line infection, but thought to be granulation tissue related than cellulitis. Given active inflammation, she initiated risankizumab on 01/02/25. Now status post exploratory laparotomy, lysis of adhesions, takedown of end ileostomy, creation of end to side ileocolic anastomosis 02/15/2025. Medication Management - Completed risankizumab induction dosing, starting week 12, 360 mg SQ every 8 weeks. LFTs normal. PA for OBI currently in progress. Reviewed next steps in regards to logistics. She would like in-clinic teaching for administration. - Will see if our dietitian can see her for post-op management/advice. Will also check with Dr. Hoover if loperamide/gradual increase in fiber would be appropriate here. - Updated med list in Epic BIOLOGIC/SMALL MOLECULE DOSING Induction dose of risankizumab: 01/02/25; 01/30/25; 03/02/25 Scheduled to complete infusions at: [facility] Shari Transition from induction to maintenance: 03/30/25 Specialty pharmacy: TBD Health Maintenance - Candidate for several vaccines but has concerns about needles. - Recommend the following health maintenance appts: none -- currently up to date Next PharmD visit: Future Appointments Date Time Provider Department Center 03/08/2025 2:30 PM Armand Rios MD, PhD [facility] 03/16/2025 8:30 AM Tre Bridges APRN.[facility]IR[facility] 03/30/2025 12:00 PM Grace Monterroso RPh [facility] 05/07/2025 2:30 PM Mariam Dupont PA-C PERAndria Song [facility] 05/23/2025 3:00 PM Elsy Rousseau DO [facility] Francine Hobson endorses understanding to above. Denies other questions and concerns and is aware to contact us in future if needed. Grace Monterroso, Khoa, BCACP, MS IBD Clinical Pharmacist Interventions made: medication education, medication reconciliation, lab management, and medication management Time spent (mins): 30 documented in this encounter [facility] 03-07-2025 Note [facility] 03-06-2025 Instructions Mariam Dupont PA-C - 03/06/2025 2:23 PM EDT Continue Lovneox 80 mg sc q day Monitor for signs of bleeding Duration of therapeutic anticoagulation is as long as the Reece port is in place. Ordered virtual visit follow up with me around 03/2025 documented in this encounter [facility] 03-06-2025 Note [facility] 03-06-2025 History of Present illness Narrative [facility] [place] Department of Cardiovascular Medicine VIRTUAL VIDEO VISIT ESTABLISHED OUTPATIENT VISIT SERVICE DATE: 03/06/2025 Patient: Francine Hobson : 1985 This is a virtual video visit. It required patient-provider interaction for the medical decision making as documented below. Francine Hobson has consented to this video encounter. I have communicated my name and active licensure. The patient's identity and physical location were verified at the time of this visit. Either the patient or their legal communications representative has been informed of the risks and benefits of -- and alternatives to -- treatment through a remote evaluation and consents to proceed with the evaluation remotely. Francine Hobson is a 39 year old female seen for right upper extremity DVT, clotted LUE PICC line . CHIEF COMPLAINT right upper extremity DVT, clotted LUE PICC line, Anticoagulation management HISTORY OF PRESENT ILLNESS Francine Hobson is a 39 year old female with past medical history of Crohn's ileocolitis status post ileocecal resection 2008, recurrent partial small bowel obstruction who presented with complaints of abdominal pain along with nausea and vomiting. She did have a recent hospital admits from 07/19-07/30/2024 and then 07/30-08/08/2024 for management of a partial small bowl obstruction and multiple abscesses. CT scan revealed fibrotic strictured segment of the neoterminal ileum with proximal dilation of the small bowel. Patient is now status post exploratory laparotomy, excision of previous ileocolic anastomosis and end ileostomy on 08/18/2024. Patient was found to have a right upper extremity brachial DVT on 08/21/2024. Patient has been off an on prophylactic Lovenox injections since admit due to patient having difficulty with needles. Repeat imaging done on 08/28/2024 revealed extension of the existing clot and presence of a new axillary vein thrombosis. Patient was increased to weight based Lovenox SC q 12 hours. She has a high output ostomy and is on TPN for now. Patient was readmitted for clotted LUE PICC line. While in the hospital at still patient had a PICC line in her RUE and developed an acute axillary DVT. This line was removed and one was placed in her LUE. IR was consulted and took her for a double lumen reece placement and removal of PICC line under general anesthesia on 09/05. Patient was inconsistent with Lovenox injections due to fear/ anxiety over injections. She was transitioned to Eliquis 5 mg q bid. Due to high ostomy output, patient started seeing pills in her ostomy bag. She started crushing the Eliiqus to take it. Patient continued to have marilee ostomy output. She was transitioned to Lovenox at 1.5 mg/kg/dose sc q day. PAST MEDICAL HISTORY Diagnosis Date Crohn disease (HCC) PAST SURGICAL HISTORY Procedure Laterality Date BOWEL RESECTION HX PICC LINE INSERT/CONSULT 08/21/2024 No family history on file. SOCIAL HISTORY[1] ALLERGIES Allergen Reactions Ibuprofen Other: See Comments Nsaids (Non-Steroid* Other: See Comments CURRENT MEDICATIONS risankizumab-rzaa (SKYRIZI) 360 mg/2.4 mL (150 mg/mL) wearable injector Inject 360 mg subcutaneously every 8 weeks. Start 4 weeks after the last infusion dose. acetaminophen (TYLENOL) 650 mg/20.3 mL soln Take 20.3 mL by mouth every 6 hours as needed for pain. Do not exceed 5 doses in 24 hours. oxyCODONE IR (ROXICODONE) 5 mg immediate release tablet Take 2 tablets by mouth every 6 hours as needed for 3 days, THEN 2 tablets every 8 hours as needed for 2 days, THEN 1 tablet every 6 hours as needed for 3 days, THEN 1 tablet every 8 hours as needed for 2 days, THEN 1 tablet every 12 hours as needed for up to 2 days. naloxone 4 mg/actuation nasal spray (NARCAN) Use 1 spray in one nostril as needed for overdose. May repeat every 2 to 3 min in alternating nostrils until medical assistance is available enoxaparin (LOVENOX) 100 mg/mL syrg Inject 0.975 mL subcutaneously once daily. Please inject full contents of syringe daily. ondansetron orally disintegrating (ZOFRAN ODT) 4 mg disintegrating tablet Take 1 tablet by mouth every 8 hours as needed for nausea/vomiting (first line). pantoprazole DR (PROTONIX) 40 mg tablet Take 1 tablet by mouth once daily. promethazine (PHENERGAN) 25 mg tablet Take 1 tablet by mouth every 6 hours as needed for nausea/vomiting (second line). amitriptyline (ELAVIL) 25 mg tablet Take 25 mg by mouth daily at bedtime. dicyclomine (BENTYL) 10 mg capsule Take 10 mg by mouth three times a day. Lactobacillus acidophilus (PROBIOTIC ACIDOPHILUS ORAL) Take 1 capsule by mouth once daily Cholecalciferol, Vitamin D3, (VITAMIN D) 25 mcg (1,000 unit) cap Take 1,000 Units by mouth once daily. hydrOXYzine HCl (ATARAX) 25 mg tablet Take 25 mg by mouth three times a day as needed for anxiety. citalopram (CELEXA) 40 mg tablet Take 40 mg by mouth once daily. REVIEW OF SYSTEMS: GENERAL: Negative for: Weight loss or gain, Fever or Chills, Weakness and Sleep difficulties. GASTROINTESTINAL: Positive for alternating diarrhea and constipation, Patient is eating a liquid diet since ostomy reversal. EXTREMITIES: No reported edema noted in the upper or lower extremities PHYSICAL EXAMINATION: VIDEO EXAM: (if completed, performed via video enabled technology) GENERAL: alert and appropriate, in no distress, well-hydrated, well nourished, and happy, smiling, interactive IMAGES: US Arm Vein DVT [facility] 12/29/2024: IMPRESSION Compared to prior study of 09/19/2024, Previous deep vein thrombosis no longer visualized on today's exam. RIGHT SIDE - DEEP VEINS Technically limited study. Negative for acute deep vein thrombosis in vessels visualized. Unable to visualize the subclavian vein and axillary vein due to IV lines and bandages. High bifurcation noted. LEFT SIDE - DEEP VEINS Negative for acute deep vein thrombosis. High bifurcation noted. US DVT Upper Left 09/19/2024: IMPRESSION Technically difficult exam due to bandages and lines. Compared to prior study of 08/28/2024, unable to visualize known deep vein thrombosis in the right subclavian and axillary veins due to bancages and lines. Similar findings noted in the left side; left side compared to [facility] 09/01/2024. RIGHT SIDE - DEEP VEINS Unable to visualize the subclavian vein and axillary vein due to bandages and IV lines. High bifurcation noted of the brachial vein. Only segments visualized of the internal jugular vein. LEFT SIDE - DEEP VEINS Negative for propagation of known deep vein thrombosis in the subclavian vein and axillary vein. Mobile tail of thrombus noted in the subclavian vein. US DVT Upper Left 09/01/2024: IMPRESSION: Left cephalic vein not visualized. Positive study for acute DVT in the left upper extremity. Nonocclusive thrombus associated with indwelling left upper extremity PICC catheter at the left subclavian vein. Negative study for superficial thrombophlebitis in the imaged segments of the left upper extremity. US Arm Vein DVT [facility] 08/28/2024: IMPRESSION Naomi Cortes PA-C was notified with results at 10:38 AM. Compared to prior study of 08/21/2024, there is propagation of thrombus into the mid brachial vein and the axillary vein today. RIGHT SIDE - DEEP VEINS Acute deep vein thrombosis in the axillary vein. Positive for propagation of the known deep vein thrombosis in the brachial vein from proximal to mid. High bifurcation noted of the brachial vein. LEFT SIDE - DEEP VEINS Spontaneous and respirophasic flow noted in the subclavian vein. IV line noted within the subclavian vein. US Arm Vein DVT [facility] 08/21/2024: IMPRESSION Bernadette Hammond APRN CNP was notified with results at 10:55 AM. RIGHT SIDE - DEEP VEINS Clinical correlation to prior indwelling line is required. Repeat imaging in 5-7 days is recommended. Focal, non-occlusive filling defect consistent with fibrin sheath versus thrombus is visualized in the brachial vein at proximal. LEFT SIDE - DEEP VEINS Spontaneous and respirophasic flow noted in the subclavian vein. CT Enterography w ivcon 07/30/2024: IMPRESSION: STRICTURE WITH IMAGING FINDINGS OF ACTIVE INFLAMMATION PENETRATING DISEASE: ABSENT Suspected at least partial small bowel obstruction with transition point in the left lower quadrant starting at the level of approximately 30 cm of active inflammatory changes with multifocal stricturing in the neoterminal ileum. Short segment area of active inflammation in the transverse colon without upstream dilation. 1.5 cm right buttock superficial cystic lesion, most likely a small abscess or epidermal inclusion cyst. ASSESSMENT: Francine Hobson is a 39 year old female with past medical history of Crohn's ileocolitis status post ileocecal resection 2008, recurrent partial small bowel obstruction who presented with complaints of abdominal pain along with nausea and vomiting. She did have a recent hospital admits from 07/19-07/30/2024 and then 07/30-08/08/2024 for management of a partial small bowl obstruction and multiple abscesses. CT scan revealed fibrotic strictured segment of the neoterminal ileum with proximal dilation of the small bowel. Patient is now status post exploratory laparotomy, excision of previous ileocolic anastomosis and end ileostomy on 08/18/2024. Patient was found to have a right upper extremity brachial DVT on 08/21/2024. Patient has been off an on prophylactic Lovenox injections since admit due to patient having difficulty with needles. Repeat imaging done on 08/28/2024 revealed extension of the existing clot and presence of a new axillary vein thrombosis. Patient was increased to weight based Lovenox SC q 12 hours. She has a high output ostomy and is on TPN for now. Patient was readmitted for clotted LUE PICC line. While in the hospital at still patient had a PICC line in her RUE and developed an acute axillary DVT. This line was removed and one was placed in her LUE. IR was consulted and took her for a double lumen reece placement and removal of PICC line under general anesthesia on 09/05. Patient was inconsistent with Lovenox injections due to fear/ anxiety over injections. She was transitioned to Eliquis 5 mg q bid. Due to high ostomy output, patient started seeing pills in her ostomy bag. She started crushing the Eliiqus to take it. -US DVT Upper Left 09/19/2024: Technically difficult exam due to bandages and lines. Compared to prior study of 08/28/2024, unable to visualize known deep vein thrombosis in the right subclavian and axillary veins due to bandages and lines. Similar findings noted in the left side; left side compared to [facility] 09/01/2024. US Arm Vein DVT [facility] 12/29/2024: Compared to prior study of 09/19/2024, Previous deep vein thrombosis no longer visualized on today's exam. Patient is status post Exploratory laparotomy, lysis of adhesions, takedown of end ileostomy, creation of end to side ileocolic anastomosis 02/15/2025. She is introducing foods and increasing her diet gradually. The plan is to wean patient off of TPN over the coming months. She will likely have the Reece in place for at least the next 3-4 months. She was transitioned to Lovenox 1.5 mg/kg/dose (100mg) sc q day. PLAN Continue Lovneox 80 mg sc q day Monitor for signs of bleeding Duration of therapeutic anticoagulation is as long as the Reece port is in place. Ordered virtual visit follow up with me around 03/2025 I personally spent 19 minutes in total time involved in the management and care of this patient. Mariam Dupont PA-C March 06, 2025 2:20 PM [1] Social History Tobacco Use Smoking status: Never Passive exposure: Current ( smokes out side per pt 02/14/2025) Smokeless tobacco: Never Vaping Use Vaping status: Never Used Substance Use Topics Alcohol use: Not Currently Drug use: Yes Types: Marijuana Comment: Marijuana(last used 02/14/2025) per pt 02/14/2025 documented in this encounter [facility] 03-02-2025 Instructions Tre Bridges APRN.[facility] - 03/02/2025 6:17 PM EDT We discussed your post-surgical recovery: - Your abdominal pain is normal and part of the healing process. The pain may feel worse than laparoscopic surgery because your muscles were cut during the procedure. Continue to take it easy and avoid heavy lifting (no more than 10 pounds) for the next 10 weeks to prevent complications such as a hernia. - You may take Tylenol, Valium, Oxycodone, muscle relaxers, and use lidocaine patches as needed for pain management. Cut the lidocaine patches in half and apply them to either side of the affected area. - Steri-Strips have been applied to your wound. These will fall off on their own in about 10 days. Do not remove them manually. After they fall off, leave the area open to air. - You may shower, but avoid submerging the wound in water (e.g., no swimming, hot tubs, or baths) until the scab is completely gone and the area feels smooth to the touch. This will likely take another 2-3 weeks. - If you experience increased pain, swelling, redness, or drainage from the wound, please contact our office. We discussed your diet during recovery: - Continue with a full liquid diet for one more week. After that, you may gradually reintroduce soft foods such as oatmeal, mashed potatoes, ground chicken, rotisserie chicken, or tuna. Avoid raw vegetables, salads, and qzrho-xi-wlarqi foods like steak. - Ensure you are meeting your protein goals to support healing. Aim for 90 grams of protein daily. Consider using protein supplements like Ensure if needed. We discussed activity restrictions: - Avoid strenuous activities, including heavy lifting and high-impact exercises, for the next 6-8 weeks. - You may resume sexual activity in 6-8 weeks, depending on your comfort level and healing progress. Follow-Up Instructions: - Monitor your symptoms and let us know if you experience any concerning changes, such as worsening pain, signs of infection, or difficulty with bowel movements. - If you have any questions or concerns, please reach out to our office via [employer] or by phone. Take care and continue to rest as you recover. All the bestTRE APRN.RONEL documented in this encounter [facility] 03-02-2025 Note [facility] 03-02-2025 History of Present illness Narrative Images from the original note were not included. [facility] Follow-up March 02, 2025 Recording using [employer] software for draft documentation of the visit was discussed with the patient/authorized communications representative; all questions welcomed and answered. Patient/authorized communications representative agreed to proceed Chief complaint: fu surgery, staple removal HPI: This pt is a 39 year old female with past medical history sig for Crohn's, and bowel obstruction. Underwent Exploratory laparotomy, excision of previous ileocolic anastomosis, end ileostomy on 08/18/[address] Rousseau. On 02/15/25 underwent ileostomy reversal with Dr. Rousseau. Findings of Cystoscopy demonstrated no masses, lesions, or tumors - Bilateral ureteral orifices in orthotopic position identified. - Bilaterally effluxing ureters with fluorescein dye She notes that the pain is worse than what she experienced after laparoscopic surgery, and is severe enough that she rarely leaves her couch except to walk around the house or use the bathroom. She also reports a recent episode of severe pain while singing. She is currently taking Tylenol, Valium, oxycodone, muscle relaxants, and using lidocaine patches for pain management. pain is mostly around former stoma site. Her bowel habits have been variable, with frequent diarrhea since surgery, though she experienced constipation today. Her current diet consists mainly of baby food and mashed potatoes, which she reports slow her bowel movements. She has been hesitant to reintroduce other foods, such as oatmeal, due to concerns about digestibility. ROS:Gastrointestinal: (+) abdominal pain, (+) diarrhea, (+) constipation Physical Exam: Sensitive Exam: no LMP 02/08/2025 (Exact Date) General - awake, alert, no acute distress Abdominal - soft, flat. former ileostomy site CDI with scab. Midline abdominal incision well approximated with josué. Anorectal: deferred Assessment Medical Decision Making: Assessment & Diagnosis: Francine Hobson is a 39 year old female Underwent Exploratory laparotomy, excision of previous ileocolic anastomosis, end ileostomy on 08/18/[address] Rousseau. Data Reviewed: Tests & Documents Reviewed/ordered: Review of prior notes from OR notes, and prior visit. I have discussed Francine Hobson's treatment plan and/or results with pt. Treatment plan: 1. Encounter for other specified surgical aftercare (Z48.89) 2. Postoperative pain (G89.18) Patient is in the postoperative period following abdominal surgery, with expected pain and healing progress. - Applied Steri-Strips to the surgical site for additional support. - Advised use of lidocaine patches (cut in half and applied to either side of the wound) for pain management. - Instructed to avoid submersion in water (swimming, hot tubs, pools) until the scab is completely gone and the wound is smooth; showering is permitted. - Advised to avoid heavy lifting over 10 lbs for 10 weeks to prevent hernia formation. - Advised to avoid activities that increase intra-abdominal pressure. - Advised to avoid sexual activity for 6-8 weeks postoperatively. - Advised to continue current pain management regimen as needed. 3. Diarrhea, unspecified type (R19.7) 4. Constipation, unspecified constipation type (K59.00) Patient reports alternating episodes of diarrhea and constipation, with frequent bowel movements and dietary intake currently limited to baby food and mashed potatoes. - Advised to gradually reintroduce soft, easily digestible foods such as oatmeal, ground chicken, and tuna over the next week. - Advised to avoid raw vegetables, salads, and kimchi at this time. - Encouraged to ensure adequate protein intake (90 grams per day) to support healing. Risk of morbidity, mortality and/or complications of treatment plan: clarence BRIDGES APRN.[facility] [address] [place] [address] documented in this encounter [facility] 03-02-2025 History of Present illness Narrative [facility] received prescription(s) for Skyrizi from Dr. Armand Piper's office. Benefits investigation was conducted, indicating that a prior authorization is required by patient's insurance plan with [employer]. Encounter will be updated once prior authorization has been submitted by [facility]. Nikki Whittaker CPhT [facility] documented in this encounter [facility] 03-02-2025 Note [facility] 03-02-2025 Note [facility] 03-02-2025 Note [facility] 03-02-2025 Note [facility] 03-02-2025 Note [facility] 02-26-2025 Telephone encounter Note Patient is unable to make 03/02 appointment for staple removal as she has an infusion appointment in [place] in the morning. Patient can be reached at [phone]. [facility] 02-26-2025 Miscellaneous Notes Patient is unable to make 03/02 appointment for staple removal as she has an infusion appointment in [place] in the morning. Patient can be reached at [phone]. documented in this encounter [facility] 02-23-2025 Note [facility] 02-23-2025 Note [facility] 02-22-2025 Note [facility] 02-21-2025 Note [facility] 02-20-2025 Note [facility] 02-19-2025 Note [facility] 02-19-2025 Note [facility] 02-18-2025 Note [facility] 02-17-2025 Note [facility] 02-16-2025 Note [facility] 02-15-2025 Note [facility] 02-15-2025 Note [facility] 02-15-2025 Note [facility] 02-14-2025 Note [facility] 02-14-2025 History of Present illness Narrative AMBULATORY PATIENT EDUCATION NOTE READINESS TO LEARN COGNITIVE ABILITY: Alert and oriented MOTIVATION TO LEARN: Interested FAMILY SUPPORT: Spouse present and involved in patients care. INSTRUCTION PROVIDED TO: Patient and spouse PATIENT LEARNS BEST BY: Written Instruction - Hand-outs Verbal Instruction FACTORS AFFECTING LEARNING: None PHYSICAL LIMITATIONS AFFECTING LEARNING: None LEARNING RESPONSE DIAGNOSIS: CROHN'S DISEASE OF SMALL AND LARGE INTESTINES WITH COMPLICATION. / EXPLORATORY LAPAROTOMY EDUCATION TOPIC/ TEACHING POINTS: Procedure / Surgery: Pre-op Teaching: Logistics / Protocols / Complication Prevention METHOD OF INSTRUCTION: Individual instruction Written instruction/Handouts Verbal instruction PATIENT / FAMILY RESPONSE: Verbalizes understanding of: Nothing to eat or drink after midnight, how and when to call for arrival time, pre-op checklist, address and map for day of surgery, reminder and directions for remaining pre-op appointments. I spent a total of 10 minutes with the patient going over pre-operative instructions and answering her questions to the best of my ability. All handouts covered during the appointment were given to the patient to take home. She did not have further questions at this time and was instructed to call the office or send a message via [employer] with questions/issues. FOLLOW-UP PLAN: Patient instructed to call with any further issues Electronically Signed By Neela Collins RN in Department: [facility] documented in this encounter [facility] 02-14-2025 History and physical note Images from the original note were not included. [facility] HISTORY AND PHYSICAL EXAMINATION SERVICE DATE: 02/14/2025 SERVICE TIME: 1:17 PM PRIMARY CARE PHYSICIAN: No primary care provider on file. Assessment Patient has the following medical conditions which may affect stefania-operative course: Recurrent line related DVTs She was taking Lovenox while her reece is still in but has stopped it 3 weeks ago. Her last venous duplex was free of any acute DVTs. She will resume Lovenox when appropriate after surgery until her Reece is in. ANESTHESIA FINDINGS: Intubation History: No history of difficult intubation Significant Anesthesia Considerations: Airway History: No history of difficult airway Cuadra Activity Status Index: METS: Walk indoors, such as around the house (1.75 METs) Do light work around the house, such as dusting or washing dishes (2.70 METs) Take care of self; that is eating, dressing, bathing, using the toilet (2.75 METs) Walk a block or two on level ground (2.75 METs) Climb a flight of stairs or walk up a hill (5.50 METs) DASI Score: 15.45 Patient denies any chest pain or undue shortness of breath with the above physical activity. Clinical Frailty Scale: 2. Well STOP-Bang Score: BMI less than or equal to 35 kg/m^2 Patient 50 years old or younger Non-male patient STOP-Bang Score: 0 [id number] Score: Age: <65 Sex: female [id number] Score: ARISCAT Score: Age: <=50 Preoperative SpO2: >=96% Preoperative anemia: No Duration of surgery: >3 hrs Emergency procedure: No ARISCAT Score: Adult - Exam and Plan Prepared for Surgery: optimally prepared for surgery, pending [see comment]. Pending Labs and EKG CONSULTS: Planned Anesthetic: The Following Tests/Procedures Have Been Initiated: No orders of the defined types were placed in this encounter. REASON FOR VISIT: Francine Hobson is a 39 year old female who is scheduled for Procedure(s): EXPLORATORY LAPAROTOMY (N/A) CLOSURE ILEOSTOMY (N/A) at the request of Elsy Ramsay DO for consultation. My final recommendation will be communicated back to the requesting physician by way of shared medical record or letter. Subjective The patient has the following: COVID-19 Immunization Status This patient has no relevant Health Maintenance data. CHIEF COMPLAINT: HPI: Patient here for reversal of her ileostomy. History of Crohn's disease since age 14 years; has had 3 resections over time. REVIEW OF SYSTEMS: General: Positive for: unintentional weight change. Patient's weight gain: 40 lbs in 6 months Neurological: No history of TIA's, stroke, AIRBRUSH ARTIST TECHNICAL tumor, impaired sensorium, hemiplegia, paraplegia or quadraplegia. No neurological symptoms or problems. Respiratory: No history of current cough or dyspnea, or pneumonia in the past 6 weeks. No history of respiratory/pulmonary symptoms or problems. Cardiovascular: Positive for: DVT/PE (Patient recalls 4 line related DVTs) GI: See HPI. : No history of dysuria, frequency or incontinence, stones or chronic kidney disease. No difficulty urinating, nocturia > 1 time per night or hematuria. AUGER SUPERVISOR: Negative for abnormal vaginal bleeding, abnormal vaginal discharge. Endocrine: Positive for: steroid for chronic problem (Last taken 6 months ago). Hematology: Positive for: bruises/bleeds easily and chronic anti-coagulation/platelet meds (She stopped Lovenox weeks ago). Oncology: No history of CA metastasis, chemo within 30 days, or radiotherapy within 90 days. No history of oncological symptoms or problems. Psych: Positive for: anxiety and depression. Musculoskeletal: Negative for joint pain or swelling, back pain or muscle pain. Implanted Devices: Has implanted device Implants: Reece catheter for TPN. PAST MEDICAL HISTORY Diagnosis Date Crohn disease (HCC) PAST SURGICAL HISTORY Procedure Laterality Date BOWEL RESECTION HX PICC LINE INSERT/CONSULT 08/21/2024 No family history on file. SOCIAL HISTORY[1] Prior to Admission medications as of 02/14/25 1312 Medication Sig Last Dose Taking psyllium (METAMUCIL FIBER SINGLES) 3.4 gram packet Take 1 packet by mouth once daily. Yes loperamide (IMODIUM) 2 mg cap(s) Take 2 capsules by mouth before meals and at bedtime. Yes diphenoxylate-atropine (LOMOTIL) 2.5-0.025 mg per tablet Take 2 tablets by mouth before meals and at bedtime for 90 days. Yes ondansetron orally disintegrating (ZOFRAN ODT) 4 mg disintegrating tablet Take 1 tablet by mouth every 8 hours as needed for nausea/vomiting (first line). Yes pantoprazole DR (PROTONIX) 40 mg tablet Take 1 tablet by mouth once daily. Yes promethazine (PHENERGAN) 25 mg tablet Take 1 tablet by mouth every 6 hours as needed for nausea/vomiting (second line). Yes amitriptyline (ELAVIL) 25 mg tablet Take 25 mg by mouth daily at bedtime. Yes dicyclomine (BENTYL) 10 mg capsule Take 10 mg by mouth three times a day. Yes Lactobacillus acidophilus (PROBIOTIC ACIDOPHILUS ORAL) Take 1 capsule by mouth once daily Yes Cholecalciferol, Vitamin D3, (VITAMIN D) 25 mcg (1,000 unit) cap Take 1,000 Units by mouth once daily. Yes hydrOXYzine HCl (ATARAX) 25 mg tablet Take 25 mg by mouth three times a day as needed for anxiety. Yes citalopram (CELEXA) 40 mg tablet Take 40 mg by mouth once daily. Yes enoxaparin (LOVENOX) 80 mg/0.8 mL Inject 0.625 mL subcutaneously once daily. Inject entire contents of one(1) syringe Patient not taking: Reported on 02/14/2025 No medication comments found. ALLERGIES Allergen Reactions Ibuprofen Other: See Comments Nsaids (Non-Steroid* Other: See Comments Objective PHYSICAL EXAM: General: alert and oriented and healthy appearance. Pertinent negatives noted - not distressed. Skin: normal color, no rash or lesions. HEENT: EOM intact, pupils equal round and pupils reactive to light. Cardiovascular: regular rate and rhythm, normal S1 and S2, no rub, murmurs, or gallop. Respiratory: normal breath sounds, no wheezes or crackles. No chest wall deformity or tenderness. Abdomen: bowel sounds present and soft. Pertinent negatives noted - not tender. Extremities: no deformity, no edema or tenderness, no joint swelling or clubbing. Neurological: normal cognition and motor skills. Gait normal. No weakness or sensory deficit. PAIN ASSESSMENT: VITALS: BP 92/58[No symptoms per pt[ Pulse 68 Temp (Src) 97.7 (Oral) Ht 5' 6.5 (1.69m) Wt 143 lb 8.3 oz (65.1kg) SpO2 99% LMP 02/08/2025 BMI 22.82 kg/(m^2). Diagnostic tests reviewed for today's visit: Lab Value Units Date High Low HB 12.1 g/dL 02/06/2025 15.5 11.5 HCT 35.8 % 02/06/2025 46.0 36.0 WBC 3.15 k/uL 02/06/2025 11.00 3.70 PLT 144 k/uL 02/06/2025 400 150 NA 137 mmol/L 02/06/2025 144 136 K 4.5 mmol/L 02/06/2025 5.1 3.7 GLUC 106 mg/dL 02/06/2025 99 74 BUN 19 mg/dL 02/06/2025 21 7 CREAT 0.45 mg/dL 02/06/2025 0.96 0.58 PTSEC 11.8 sec 09/02/2024 13.0 9.7 INR 1.1 no uni* 09/02/2024 1.3 0.9 APTT 59.5 sec 09/06/2024 32.4 23.0 ALT 30 U/L 02/06/2025 38 7 AST 26 U/L 02/06/2025 35 13 TBILI 0.3 mg/dL 02/06/2025 1.3 0.2 TSH No results within date range. Lab Value Units Date High Low HCGQT No results within date range. UHCG No results within date range. HCG, BODY* No results within date range. Lab Value Units Date High Low ABORHD No results within date range. ABSCREEN No results within date range. No results found for: HBA1C Recent Results (from the past 8760 hours) ECG COMPLETE Collection Time: 08/03/24 4:36 PM Result Value Ventricular Rate 71 Atrial Rate 71 P-R Interval 130 QRS Duration 76 QT Interval 424 QTC Calculation (Bazett) 460 Calculated P Bertram 68 Calculated R Bertram 53 Calculated T Bertram 73 Impression NORMAL SINUS RHYTHM NORMAL ECG No results found for this or any previous visit (from the past 78614 hours). Instructions Given to Patient: Instructions located in the after visit summary. Patient given verbal and written preop instructions and voices comprehension and compliance. SIGNATURE: Lanie Guillen MD PATIENT NAME: Francine Hobson DATE: February 14, 2025 TIME: 1:17 PM PAGER/CONTACT #: [[phone]] Social History Tobacco Use Smoking status: Never Passive exposure: Current ( smokes out side per pt 02/14/2025) Smokeless tobacco: Never Vaping Use Vaping status: Never Used Substance Use Topics Alcohol use: Not Currently Drug use: Yes Types: Marijuana Comment: Marijuana(last used 02/14/2025) per pt 02/14/2025 [facility] 02-14-2025 History and physical note Images from the original note were not included. [facility] HISTORY AND PHYSICAL EXAMINATION SERVICE DATE: 02/14/2025 SERVICE TIME: 1:17 PM PRIMARY CARE PHYSICIAN: No primary care provider on file. Assessment Patient has the following medical conditions which may affect stefania-operative course: Recurrent line related DVTs She was taking Lovenox while her reece is still in but has stopped it 3 weeks ago. Her last venous duplex was free of any acute DVTs. She will resume Lovenox when appropriate after surgery until her Reece is in. ANESTHESIA FINDINGS: Intubation History: No history of difficult intubation Significant Anesthesia Considerations: Airway History: No history of difficult airway Cuadra Activity Status Index: METS: Walk indoors, such as around the house (1.75 METs) Do light work around the house, such as dusting or washing dishes (2.70 METs) Take care of self; that is eating, dressing, bathing, using the toilet (2.75 METs) Walk a block or two on level ground (2.75 METs) Climb a flight of stairs or walk up a hill (5.50 METs) DASI Score: 15.45 Patient denies any chest pain or undue shortness of breath with the above physical activity. Clinical Frailty Scale: 2. Well STOP-Bang Score: BMI less than or equal to 35 kg/m^2 Patient 50 years old or younger Non-male patient STOP-Bang Score: 0 [id number] Score: Age: <65 Sex: female [id number] Score: ARISCAT Score: Age: <=50 Preoperative SpO2: >=96% Preoperative anemia: No Duration of surgery: >3 hrs Emergency procedure: No ARISCAT Score: Adult - Exam and Plan Prepared for Surgery: optimally prepared for surgery, pending [see comment]. Pending Labs and EKG CONSULTS: Planned Anesthetic: The Following Tests/Procedures Have Been Initiated: No orders of the defined types were placed in this encounter. REASON FOR VISIT: Francine Hobson is a 39 year old female who is scheduled for Procedure(s): EXPLORATORY LAPAROTOMY (N/A) CLOSURE ILEOSTOMY (N/A) at the request of Elsy Ramsay DO for consultation. My final recommendation will be communicated back to the requesting physician by way of shared medical record or letter. Subjective The patient has the following: COVID-19 Immunization Status This patient has no relevant Health Maintenance data. CHIEF COMPLAINT: HPI: Patient here for reversal of her ileostomy. History of Crohn's disease since age 14 years; has had 3 resections over time. REVIEW OF SYSTEMS: General: Positive for: unintentional weight change. Patient's weight gain: 40 lbs in 6 months Neurological: No history of TIA's, stroke, AIRBRUSH ARTIST TECHNICAL tumor, impaired sensorium, hemiplegia, paraplegia or quadraplegia. No neurological symptoms or problems. Respiratory: No history of current cough or dyspnea, or pneumonia in the past 6 weeks. No history of respiratory/pulmonary symptoms or problems. Cardiovascular: Positive for: DVT/PE (Patient recalls 4 line related DVTs) GI: See HPI. : No history of dysuria, frequency or incontinence, stones or chronic kidney disease. No difficulty urinating, nocturia > 1 time per night or hematuria. AUGER SUPERVISOR: Negative for abnormal vaginal bleeding, abnormal vaginal discharge. Endocrine: Positive for: steroid for chronic problem (Last taken 6 months ago). Hematology: Positive for: bruises/bleeds easily and chronic anti-coagulation/platelet meds (She stopped Lovenox weeks ago). Oncology: No history of CA metastasis, chemo within 30 days, or radiotherapy within 90 days. No history of oncological symptoms or problems. Psych: Positive for: anxiety and depression. Musculoskeletal: Negative for joint pain or swelling, back pain or muscle pain. Implanted Devices: Has implanted device Implants: Reece catheter for TPN. PAST MEDICAL HISTORY Diagnosis Date Crohn disease (HCC) PAST SURGICAL HISTORY Procedure Laterality Date BOWEL RESECTION HX PICC LINE INSERT/CONSULT 08/21/2024 No family history on file. SOCIAL HISTORY[1] Prior to Admission medications as of 02/14/25 1312 Medication Sig Last Dose Taking psyllium (METAMUCIL FIBER SINGLES) 3.4 gram packet Take 1 packet by mouth once daily. Yes loperamide (IMODIUM) 2 mg cap(s) Take 2 capsules by mouth before meals and at bedtime. Yes diphenoxylate-atropine (LOMOTIL) 2.5-0.025 mg per tablet Take 2 tablets by mouth before meals and at bedtime for 90 days. Yes ondansetron orally disintegrating (ZOFRAN ODT) 4 mg disintegrating tablet Take 1 tablet by mouth every 8 hours as needed for nausea/vomiting (first line). Yes pantoprazole DR (PROTONIX) 40 mg tablet Take 1 tablet by mouth once daily. Yes promethazine (PHENERGAN) 25 mg tablet Take 1 tablet by mouth every 6 hours as needed for nausea/vomiting (second line). Yes amitriptyline (ELAVIL) 25 mg tablet Take 25 mg by mouth daily at bedtime. Yes dicyclomine (BENTYL) 10 mg capsule Take 10 mg by mouth three times a day. Yes Lactobacillus acidophilus (PROBIOTIC ACIDOPHILUS ORAL) Take 1 capsule by mouth once daily Yes Cholecalciferol, Vitamin D3, (VITAMIN D) 25 mcg (1,000 unit) cap Take 1,000 Units by mouth once daily. Yes hydrOXYzine HCl (ATARAX) 25 mg tablet Take 25 mg by mouth three times a day as needed for anxiety. Yes citalopram (CELEXA) 40 mg tablet Take 40 mg by mouth once daily. Yes enoxaparin (LOVENOX) 80 mg/0.8 mL Inject 0.625 mL subcutaneously once daily. Inject entire contents of one(1) syringe Patient not taking: Reported on 02/14/2025 No medication comments found. ALLERGIES Allergen Reactions Ibuprofen Other: See Comments Nsaids (Non-Steroid* Other: See Comments Objective PHYSICAL EXAM: General: alert and oriented and healthy appearance. Pertinent negatives noted - not distressed. Skin: normal color, no rash or lesions. HEENT: EOM intact, pupils equal round and pupils reactive to light. Cardiovascular: regular rate and rhythm, normal S1 and S2, no rub, murmurs, or gallop. Respiratory: normal breath sounds, no wheezes or crackles. No chest wall deformity or tenderness. Abdomen: bowel sounds present and soft. Pertinent negatives noted - not tender. Extremities: no deformity, no edema or tenderness, no joint swelling or clubbing. Neurological: normal cognition and motor skills. Gait normal. No weakness or sensory deficit. PAIN ASSESSMENT: VITALS: BP 92/58[No symptoms per pt[ Pulse 68 Temp (Src) 97.7 (Oral) Ht 5' 6.5 (1.69m) Wt 143 lb 8.3 oz (65.1kg) SpO2 99% LMP 02/08/2025 BMI 22.82 kg/(m^2). Diagnostic tests reviewed for today's visit: Lab Value Units Date High Low HB 12.1 g/dL 02/06/2025 15.5 11.5 HCT 35.8 % 02/06/2025 46.0 36.0 WBC 3.15 k/uL 02/06/2025 11.00 3.70 PLT 144 k/uL 02/06/2025 400 150 NA 137 mmol/L 02/06/2025 144 136 K 4.5 mmol/L 02/06/2025 5.1 3.7 GLUC 106 mg/dL 02/06/2025 99 74 BUN 19 mg/dL 02/06/2025 21 7 CREAT 0.45 mg/dL 02/06/2025 0.96 0.58 PTSEC 11.8 sec 09/02/2024 13.0 9.7 INR 1.1 no uni* 09/02/2024 1.3 0.9 APTT 59.5 sec 09/06/2024 32.4 23.0 ALT 30 U/L 02/06/2025 38 7 AST 26 U/L 02/06/2025 35 13 TBILI 0.3 mg/dL 02/06/2025 1.3 0.2 TSH No results within date range. Lab Value Units Date High Low HCGQT No results within date range. UHCG No results within date range. HCG, BODY* No results within date range. Lab Value Units Date High Low ABORHD No results within date range. ABSCREEN No results within date range. No results found for: HBA1C Recent Results (from the past 8760 hours) ECG COMPLETE Collection Time: 08/03/24 4:36 PM Result Value Ventricular Rate 71 Atrial Rate 71 P-R Interval 130 QRS Duration 76 QT Interval 424 QTC Calculation (Bazett) 460 Calculated P Bertram 68 Calculated R Bertram 53 Calculated T Bertram 73 Impression NORMAL SINUS RHYTHM NORMAL ECG No results found for this or any previous visit (from the past 23177 hours). Instructions Given to Patient: Instructions located in the after visit summary. Patient given verbal and written preop instructions and voices comprehension and compliance. SIGNATURE: Lanie Guillen MD PATIENT NAME: Francine Hobson DATE: February 14, 2025 TIME: 1:17 PM PAGER/CONTACT #: [1] Social History Tobacco Use Smoking status: Never Passive exposure: Current ( smokes out side per pt 02/14/2025) Smokeless tobacco: Never Vaping Use Vaping status: Never Used Substance Use Topics Alcohol use: Not Currently Drug use: Yes Types: Marijuana Comment: Marijuana(last used 02/14/2025) per pt 02/14/2025 documented in this encounter [facility] 02-14-2025 History of Present illness Narrative Radiology Service Progress Note PATIENT NAME: Francine Hobson DATE OF SERVICE: February 14, 2025 TIME: 11:18 AM PATIENT IDENTITY VERIFICATION COMPLETED USING TWO (2) IDENTIFIERS: Name and Date of confirmed by patient verbally. FALL SCREENING: Has the patient had 2 falls in the last year or 1 fall with injury or currently using an Ambulatory Assistive Device (Walker, Cane, Wheelchair, Crutches, etc.)? No PATIENT GENDER DATA: Assigned female at . status: : No status: NO. PATIENT RELEVANT IMPLANT DATA REVIEWED: Not Applicable PATIENT PRESENTS WITH AN IMPLANTABLE OR ATTACHED DIGITAL CONTENT PRODUCER: No RADIOLOGY DEPARTMENT: General X-ray: Exam(s) Completed: GI/ Procedure(s): Barium enema with water soluable contrast PERIPHERAL IV DATA: Not applicable SIGNED BY: RT Pia(R) February 14, 2025 11:18 AM documented in this encounter [facility] 02-14-2025 Note [facility] 01-23-2025 Telephone encounter Note Called patient in regards to scheduling follow up with Dr. Hoover in 4-8 weeks, appointment ok to be virtual per Dr. Hoover. Unable to leave voicemail due to voicemail full. Naomi Mensah Security Assessor [facility] 01-23-2025 Miscellaneous Notes Called patient in regards to scheduling follow up with Dr. Hoover in 4-8 weeks, appointment ok to be virtual per Dr. Hoover. Unable to leave voicemail due to voicemail full. Naomi Mensah Security Assessor documented in this encounter [facility] 01-16-2025 History of Present illness Narrative IBD Medication Consult [facility] [place] Patient consents to pharmacy consult agreement. Patient Name: Francine Joce IBD Provider: Dr. Kiko Piper Reason for consult: education, coordination, health maintenance review, and reconciliation Met with Francine today. She reports: - tolerated Skyrizi infusion well. Scheduled for next dose. Denies changes with GI sxs yet. - reports all other meds are still same. - has fear of needles, cannot do self-injections but feels she will be able to administer OBI based on prior demo of device CLINICAL SYMPTOMS Frequency of emptying ba-18 (improved compared to prior but still frequent) Fullness of bag when emptied: mostly full (3-4 L) Consistency: liquid Blood: no Rectum: yes Frequency of changing bag: every 2 days Any skin issues around stoma site: no Abnormal drainage around stoma: no Abdominal pain: no Abdominal distention: no Nausea/vomiting: sporadic - takes zofran as needed Weight loss over last 3 months: no (140 lbs last week) SOCIAL HISTORY Tobacco use: no EtOH: No PERTINENT PMH FOR BIOLOGICS/SMALL MOLECULES Personal history of: VTE: Yes, line-related blood clots (on enoxaparin) Cardiac: No Renal dysfunction: No Hepatic dysfunction: No Autoimmune/Demyelinating disease (MS, GBS): No Malignancy: No Family history of: Malignancy: Yes, mother (bladder) PAST MEDICAL HISTORY Diagnosis Date Crohn disease (HCC) PAST SURGICAL HISTORY Procedure Laterality Date BOWEL RESECTION HX PICC LINE INSERT/CONSULT 08/21/2024 Current Outpatient Medications Medication Sig Dispense Refill enoxaparin (LOVENOX) 80 mg/0.8 mL Inject 0.625 mL subcutaneously once daily. Inject entire contents of one(1) syringe psyllium (METAMUCIL FIBER SINGLES) 3.4 gram packet Take 1 packet by mouth once daily. loperamide (IMODIUM) 2 mg cap(s) Take 2 capsules by mouth before meals and at bedtime. 240 capsule 2 diphenoxylate-atropine (LOMOTIL) 2.5-0.025 mg per tablet Take 2 tablets by mouth before meals and at bedtime for 90 days. 240 tablet 2 ondansetron orally disintegrating (ZOFRAN ODT) 4 mg disintegrating tablet Take 1 tablet by mouth every 8 hours as needed for nausea/vomiting (first line). [address] (PROTONIX) 40 mg tablet Take 1 tablet by mouth once daily. 30 tablet 2 promethazine (PHENERGAN) 25 mg tablet Take 1 tablet by mouth every 6 hours as needed for nausea/vomiting (second line). 30 tablet 0 acetaminophen (TYLENOL) 500 mg tablet Take 2 tablets by mouth every 6 hours as needed (mild, moderate pain). 30 tablet 0 propranolol (INDERAL) 10 mg tablet Take 10 mg by mouth once daily. As needed for panic attacks amitriptyline (ELAVIL) 25 mg tablet Take 25 mg by mouth daily at bedtime. dicyclomine (BENTYL) 10 mg capsule Take 10 mg by mouth three times a day. Lactobacillus acidophilus (PROBIOTIC ACIDOPHILUS ORAL) Take 1 capsule by mouth once daily Cholecalciferol, Vitamin D3, (VITAMIN D) 25 mcg (1,000 unit) cap Take 1,000 Units by mouth once daily. midodrine (PROAMATINE) 10 mg tablet Take 10 mg by mouth three times a day. (Patient not taking: Reported on 12/25/2024) hydrOXYzine HCl (ATARAX) 25 mg tablet Take 25 mg by mouth three times a day as needed for anxiety. citalopram (CELEXA) 40 mg tablet Take 40 mg by mouth once daily. No current facility-administered medications for this visit. ALLERGIES Allergen Reactions Ibuprofen Other: See Comments Nsaids (Non-Steroid* Other: See Comments FAMILY HISTORY No family history on file. PERTINENT VITALS AND LABS Weight/BMI: Wt: 54.9 kg (121 lb) BMI: 19.53 kg/(m^2) TB: Lab Results Component Value Date TBGNIL 0.05 11/07/2024 TBGINT 11/07/2024 Infection with M. tuberculosis complex is unlikely. If latent tuberculosis infection is highly suspected, a negative result does not rule out the infection. Specimens from immunocompromised patients and those <5 years of age may show false negative results. In case of a contact investigation, please repeat 8-12 weeks after a known exposure. TBG1AG 0.05 11/07/2024 TBG2AG 0.02 11/07/2024 TBGRES Negative 11/07/2024 TBMITN >9.95 11/07/2024 TPMT: Lab Results Component Value Date TPMTACT 20.2 (L) 11/07/2024 Calprotectin stool/inflammation: No results found for: CALPTN CALPROTECTIN, FECAL QUANTITATIVE Date Value Ref Range Status 07/31/2024 464 (H) <50 ug/g Final CRP Date Value Ref Range Status 12/29/2024 <0.3 <0.9 mg/dL Final CBC: WBC (k/uL) Date Value 01/09/2025 5.22 Hemoglobin (g/dL) Date Value 01/09/2025 11.7 Hematocrit (%) Date Value 01/09/2025 34.8 (L) MCV (fL) Date Value 01/09/2025 88.1 Platelet Count (k/uL) Date Value 01/09/2025 220 Lymphocytes % (%) Date Value 11/07/2024 35.0 RENAL/HEPATIC: BUN (mg/dL) Date Value 01/09/2025 22 (H) Creatinine (mg/dL) Date Value 01/09/2025 0.52 (L) Albumin (g/dL) Date Value 01/09/2025 4.0 Bilirubin, Total (mg/dL) Date Value 01/09/2025 0.4 Bilirubin, Direct (mg/dL) Date Value 09/04/2024 0.1 AST (U/L) Date Value 01/09/2025 28 ALT (U/L) Date Value 01/09/2025 41 (H) VITAMIN B12 & D25 Vitamin B12 Date Value Ref Range Status 11/07/2024 423 232 - 1,245 pg/mL Final Vitamin D 25 Hydroxy (ng/mL) Date Value 11/07/2024 32.2 LIPID PANEL: Triglyceride (mg/dL) Date Value 09/05/2024 85 MEDICATION LEVELS Adalimumab: No results found for: ADNEAB , EERADA , ADAACT Infliximab: No results found for: IFXA , IFXT , EERIFX No components found for: INFLIXIMAB TOTAL DRUG LEVEL , INFLIXIMAB TOTAL ANTI-DRUG ANTIBODY LEVEL PULL No results found for: IFXTDM Thiopurine metabolites: No results found for: 6TG No results found for: 6MMP HEALTH MAINTENANCE - declines due to fear of needles Type Date Received Up-to-date Additional notes/comments Dosing COVID-19 No Candidate for updated COVID vaccine Updated COVID vaccine Respiratory syncytial virus (RSV) NA NA One time dose of Arexvy or Abrysvo Pneumococcal Pneumonia PCV13: PPSV23: PCV20: No Candidate for PCV20 One time dose of [id number] Hepatitis A ? No results found for: HEPAIGG Check Hepatitis A titer Two doses given at months 0 and 6 OR Twinrix (combination hep A and B vaccine): three doses given at months 0, 1, and 6 - recommend to check to see if covered by insurance Hepatitis B ? Hepatitis B Core Ab, Total (no units) Date Value 11/07/2024 Negative HBsAg Date Value Ref Range Status 11/07/2024 Negative Negative Final Hep B Surface Ab, Qual (no units) Date Value 11/07/2024 Negative Check Hepatitis B titer Heplisav-B: Two doses given at months 0 and 1 OR Engerix-B, Recombivax-HB: Three doses administered at months 0, 1, and 6 OR Twinrix (combination hep A and B vaccine): three doses given at months 0, 1, and 6 - recommend to check to see if covered by insurance Influenza No Candidate for Counseled to avoid live intranasal formulation Obtain yearly AVOID nasal formulation as it is a live vaccine Zoster recombinant (RZV) No Candidate for Shingrix Varicella titer: No results found for: VZVG Shingrix: two doses given at months 0 and 2 Note: check with your pharmacy to see if this is covered by insurance Tetanus, diphtheria, pertussis (Tdap or Td) No Candidate for One dose Tdap then Td booster every 10 years HPV Females < 45 years old and males < 26 years old; 2 dose series if <15 years old No Candidate for if covered by insurance Gardasil: three doses given at months 0, 2, and 6 Note: check with your pharmacy and insurance to see if this is covered *The above vaccines are inactivated (or non-live). Live vaccines should be avoided while on IBD biologic or small molecule treatments. Up-to-date with PAP smear (annually or Q2 years if HPV negative): Need to assess at next visit Up-to-date with skin check: NA Up-to-date with DEXA scan (low BMI, post-menopausal, steroids >3 months, FHx of osteoporosis, smoking: baseline and repeat Q5 years if initial screen is normal): Yes (November 2024) - low bone density, recommended to endocrinology ASSESSMENT/PLAN Francine Hobson is a 39 year old White female with Crohn's disease [K50.90], diagnosed in 2007. Previously treated with Liadla for 1-2 years (no response), then AZA only. Developed intra-abdominal abscess + SBO and underwent ileocecal resection in 2013. Was on AZA post op and then started Humira in 2014 (stopped 2 years ago due to not wanting injections). Was put on Rinvoq 2022 but was not compliant. Underwent CT 01/2024 showed partial small bowel obstruction. 04/2024 Had a recurrent partial SBO and was admitted at [facility]. CT revealed lower abdominal and pelvic abscess, possible fistula versus narrowing in sigmoid colon. She had aspiration of abscess at [facility] by IR. Was admitted at [facility] 07/2024 and transferred to [facility]. Was hospitalized at [facility] from 08/17/2024 thru 08/30/2024 for Crohn's colitis w/ intestinal obstruction. Underwent ex. lap excision of previous ileocolic anastomosis, and end ileostomy on 08/18/2024. Went to ED on 09/02/24 for concerns of possible occulusion of PICC line and was diagnosed with acute provoked DVT in LUE. Seen again in ED in October 2024 for concerns of potential line infection, but thought to be granulation tissue related than cellulitis. Given active inflammation, she initiated risankizumab on 01/02/25. 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 Medication Management - Continue risankizumab 600 mg IV at week 4, 8, then starting week 12, 360 mg SQ every 8 weeks. Will plan to recheck LFTs with/after third induction dose. - Baseline CT abd/pel prior not completed due to blood clots; will check with Dr. Hoover if still recommended as she started treatment now. - Updated med list in [facility] BIOLOGIC/SMALL MOLECULE DOSING Induction dose of risankizumab: 01/02/25; 01/30/25; 02/27/25 Scheduled to complete infusions at: [facility] Transition from induction to maintenance: 03/27/25 Specialty pharmacy: TBD Health Maintenance - Candidate for several vaccines but has concerns about needles. - Recommend the following health maintenance appts: none -- currently up to date Next PharmD visit: Future Appointments Date Time Provider Department Center 01/16/2025 2:30 PM LAB/[facility]EM[facility] 01/23/2025 2:30 PM LAB/[facility] 01/30/2025 2:30 PM CHAIR 19 SHARI HEMTSA [facility] 01/31/2025 11:00 AM SURGICAL REGISTRATION 2 GRENCT None 02/06/2025 2:30 PM LAB/[facility] 02/13/2025 2:45 PM LAB/[facility] 02/14/2025 10:40 AM GI RADIO MAIN QB1 (I-STAT) GIMN Main - Q Bld 02/14/2025 12:30 PM A12, Admit Interview ADMI12 [facility] A Bldg 02/14/2025 12:50 PM 3, Pacc Main MNPACC Main - A Bld 02/14/2025 1:30 PM LAB A15 MAIN LB15 Main - A Bld 02/14/2025 2:15 PM Nkechi, Nurse Pt Ed CORSMN Main - A Bld 03/06/2025 1:15 PM Mariam Dupont, PAAura PERVMN Main - J Bld 03/16/2025 8:30 AM Tre Bridges APRN.BROACH TROUBLE SHOOTER [facility] Main - A Bld 05/21/2025 2:30 PM Elsy Rousseau, CORSMN Main - A Bld Francine Hobson endorses understanding to above. Denies other questions and concerns and is aware to contact us in future if needed. Grace Monterroso, PharmD, BCACP, MS IBD Clinical Pharmacist Interventions made: medication education, medication reconciliation, and medication management Time spent (mins): 20 documented in this encounter [facility] 01-16-2025 Note [facility] 01-12-2025 Telephone encounter Note Home Nutrition Support Service Orders signed by CRISTOBAL. Call to [facility] [phone] and spoke with WAQAS Milian CNM. Patient will be able to have dressing changes and labs done there. Nuclear Medicine Supervisor will reach out to patient to set up appts through week of surgery. Call to patient to notify. Patient appreciative of call. She reports [facility] did call her today stating they did not receive what they needed from us and she told them there was a different plan. Patient did mention she thinks she may need HHC again following surgery. Call to [facility] that reached out to initiate this encounter. Discussed that since patient already going to [facility], will go there for outpatient labs and dressing changes between now and surgery. Rec: [facility] to call pt to schedule labs and dressing changes. When patient admitted for surgery mid February, will need to re-evaluate need for HHC in post op setting. Elsy Hunter, MS, RD, LD, CNSC [facility] 01-12-2025 Miscellaneous Notes Home Nutrition Support Service Orders signed by CRISTOBAL. Call to [facility] [phone] and spoke with WAQAS Milian CNM. Patient will be able to have dressing changes and labs done there. Nuclear Medicine Supervisor will reach out to patient to set up appts through week of surgery. Call to patient to notify. Patient appreciative of call. She reports [facility] did call her today stating they did not receive what they needed from us and she told them there was a different plan. Patient did mention she thinks she may need HHC again following surgery. [facility] to [facility] initiate this encounter. Discussed that since patient already going to [facility], will go there for outpatient labs and dressing changes between now and surgery. Rec: [facility] to call pt to schedule labs and dressing changes. When patient admitted for surgery mid February, will need to re-evaluate need for HHC in post op setting. Elsy Hunter MS, RD, LD, CNSC Home Nutrition Support Service Patient was seen in clinic this week and HHC situation was discussed. Patient already uses [facility] for Syrizi. She did not particularly like [facility] company, and has bowel reconnection surgery in 1 month. This week's labs were drawn while at [facility] for HPN/Dr. Mike appt. Rec: Standing orders for dressing changes pended in [facility] to CRISTOBAL pool in absence of Dr. Mike. Standing labs already in [facility]. Await signature of orders, will confirm with infusion center that they will be able to perform dressing change weekly. Elsy Hunter MS, RD, LD, CNSC FRANCINE HOBSON ([id number]) Mingo from [facility] called and stated that they received a referral way back in September for TPN lab work, Picc line, & dressing changes for this pt. They need a new order. Mingo [phone] documented in this encounter [facility] 01-11-2025 Telephone encounter Note Home Nutrition Support Service Patient was seen in clinic this week and [facility] situation was discussed. Patient already uses [facility] for Syrizi. She did not particularly like [facility] company, and has bowel reconnection surgery in 1 month. This week's labs were drawn while at [facility] for HPN/Dr. Mike appt. Rec: Standing orders for dressing changes pended in [facility] to CRISTOBAL [place] in absence of Dr. Mike. Standing labs already in [facility]. Await signature of orders, will confirm with infusion center that they will be able to perform dressing change weekly. Elsy Hunter, MS, RD, LD, [facility] 01-10-2025 Telephone encounter Note FRANCINE HOBSON ([id number]) Mingo from [facility] called and stated that they received a referral way back in September for TPN lab work, Picc line, & dressing changes for this pt. They need a new order. Mingo [phone] [facility] 01-09-2025 Note [facility] 01-09-2025 History of Present illness Narrative [facility] Nutrition Assessment Intake: Appetite is good. Patient follows a low simple sugar, Dairy free and gluten free diet, taking multiple small meals. This is not nutritionally adequate given degree of malabsorption. Patient also takes ORS and 1-2 servings of Ensure HP or Fairlife LF liquid supplement daily. Patient drinks 2-3 liters of fluid daily. Diet Recall: Abbreviated due to shortened visit Grazes all day long, including when she wakes up at night Breakfast: oatmeal, hard boiled eggs Eats rice/pasta, lean meats or tuna Avoids: fruits and veggies Beverages: Drip Drop (32 oz per day), coffee, water, protein shakes (Ensure HP), Fairlife Protein shakes lactose free Output: Urine output is medium in color and is estimated to be 900-1000 mL daily. The patient empties ostomy 15, times per day, 2-3 L daily (4-5 times per night, before/during/after meal). The output is watery. Relation to food/ fluid immediately. She denies foamy/frothy stools. Occasional greasy/oily stools. Anthropometrics: Height: 5'6 Weight: 140 lb/63.6 kg (); 118 lbs (09/19/24 w/ clothes, shoes, PN backpack, etc); 114 lbs (09/18/24); 115.5 lbs (09/04/24) Usual weight: 115 lbs Goal weight: 130-140 lbs BMI 21.93 kg/m^2 - normal Weight has increased by 10 kg over 4 months representing 19 % weight change Estimated Daily Nutritional Needs: 1600 - 2200 kcals/day = 25 - 35 kcals/kg dosing weight 95 - 125 g protein/day = 1.5-2.0 g/kg dosing weight Nutrition Focused Physical Exam: Subcutaneous Fat Loss: Orbital: None Triceps: None Mid-axillary at the iliac crest: None Muscle Loss Locations: Temporalis: None Pectoralis: None Deltoids: None Interosseous: None Latissimus dorsi, trapezius: Unable to determine at this time Quadriceps: Mild Gastrocnemius: Mild Ascites: No Edema: No Functional status: Functional capacity is unrelated to nutrition status Potential Signs of Inflammation: chronic condition Potential micronutrient deficiency revealed in No deficiency identified 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 Illness or Injury based on: Muscle Loss Mild Loss Overall Assessment: Crohn's disease c/b recurrent pSBOs High ostomy output Hx of PICC-associated DVT MNT Billing Type: Re-assess 2 units Total Time (mins): 35 SIGNATURE: Elsy Hunter RD PATIENT NAME: Francine Hobson DATE: January 09, 2025 TIME: 2:40 PM documented in this encounter [facility] 01-09-2025 History of Present illness Narrative [facility] STAFF PHYSICIAN NOTE OF PERSONAL INVOLVEMENT IN CARE I have reviewed the progress note obtained and documented by the Nutrition Clinician Elsy Hunter RD. I have explored in detail with the patient the HPI and ROS, and they are summarized below. I have discussed the case and management of the patient's care with the Nutrition Clinician. I agree with the recommendations as outlined by clinician above. I have reviewed available labs, and my exam and A/P are as follows: Recording using ambient [employer] software for draft documentation of the visit was discussed with the patient/authorized communications representative; all questions welcomed and answered. Patient/authorized communications representative agreed to proceed Francine Hobson is a 39 year old F with PMH significant for stricturing Crohn's disease complicated by SBO, s/p exlap, excision of previous ileocolonic anastomosis, end ileostomy with high output, DVT (on Eliquis). This is my first time seeing Ms. Hobson in clinic, however, she is known to me from her inpatient admission to the [facility]. She was admitted from 07/30-08/08/24 for abdominal pain secondary to partial SBO from Crohn's disease. On 08/08, was sent home with TPN and was taking budesonide at that time. After this, patient had two more inpatient admissions to [facility] in August and September, respectively. Notably, on 10/28/24, patient was seen in the ED for concern for infection at the Reece site due to erythema which she took a picture of and sent to our team. The ED physician assessed this and felt it was granulation tissue. Blood cx drawn was negative. Today, patient states that there were two subsequent hospital admissions: one for blood clots and another for a line infection. The initial line became infected and was replaced; the subsequent line also developed blood clots and infection, necessitating another replacement. She received antibiotics and a 72-hour heparin drip, and has been maintained on Lovenox injections since. She uses ethanol locks in her line for infection ppx. No current issues with the line, aside from one episode of redness that resolved after cleaning. She no longer has home health nursing due to insurance lapse and is managing her line care with assistance from friends/family. Her diet is dairy-free, gluten-free, and lower in sugar, with an emphasis on rice, tuna, eggs, fish, and meats, and minimal vegetables/fruit. She reports eating frequently throughout the day and at night, describing herself as hungry all the time, with rapid return of hunger after meals. She notes that food and fluids tend to pass quickly through her system. She drinks oral rehydration solutions (Drip Drop), typically about four packets daily mixed into two 60-ounce bottles, and consumes at least two bottles of water, with total daily fluid intake estimated at several liters. She notes that missing a TPN dose by even a few hours results in severe muscle cramps, alleviated by resuming TPN and IV fluids. Ileostomy output has decreased from approximately 4 liters daily to between 2-3 liters, with urination remaining on the low side. She takes Imodium and Lomotil (typically two pills before each meal and at bedtime, totaling four daily), as well as fiber (Metamucil x two capsules daily, which she opens and mixes into food). She previously discontinued tincture of opium due to poor taste. She grinds all medications into fine powder and mixes them with applesauce, as she was found to pass undigested pills during a prior hospitalization. She has gained weight from 105 pounds on 09/01 to 140 pounds today, and attributes this to improved intake and TPN. Currently receiving Skyrizi infusions at a cancer infusion center and has had no issues with this medication. A course of budesonide was previously completed. Regarding gastrointestinal symptoms, she denies recent fevers or chills. She describes occasional burning abdominal pain, which she associates with consuming caffeinated soda, and characterizes it as similar to prior inflammation-related pain. She also reports intermittent episodes of sudden-onset vomiting, typically foamy and white, sometimes containing recently ingested food, occurring about six or seven times since her hospital discharge on 09/08. These episodes are preceded by feeling hot and sweating, and resolve quickly after one or two episodes. She notes that these episodes began about two weeks after her hospital discharge and last occurred last week. She denies persistent nausea or inability to tolerate oral intake. Her bowel movements per rectum are infrequent, occurring once or twice per week, and consist mostly of mucus. She denies any significant issues with the ostomy site or line site at present. Besides TPN, current medication management includes Lovenox injections, Imodium, Lomotil, Metamucil, and Skyrizi. She reports that cardiovascular team is managing her AC. She has two remaining Skyrizi infusions scheduled. She expresses no urgency to discontinue TPN. She expressed understanding that her high output may persist even after ostomy reversal due to her short gut. ROS: ROS completed and negative outside of the systems documented in the HPI. INVESTIGATIONS: All available pertinent interval investigations were reviewed and were notable for: ENDOSCOPY/PATHOLOGY: No recent EGD or colonoscopy at [facility] on file IMAGING: US arm vein 12/29/24 IMPRESSION Compared to prior study of 09/19/2024, Previous deep vein thrombosis no longer visualized on today's exam. RIGHT SIDE - DEEP VEINS Technically limited study. Negative for acute deep vein thrombosis in vessels visualized. Unable to visualize the subclavian vein and axillary vein due to IV lines and bandages. High bifurcation noted. LEFT SIDE - DEEP VEINS Negative for acute deep vein thrombosis. High bifurcation noted. DXA 11/07/24 IMPRESSION: THE LOWEST Z-SCORE IS -2.5 IN THE SPINE 1) DIAGNOSIS (based on BMD alone): BELOW THE EXPECTED RANGE FOR AGE -Caution: medical conditions other than osteoporosis may cause low bone density, such as osteomalacia or renal osteodystrophy. Clinical correlation is necessary. CXR 10/28/24 IMPRESSION: No acute radiographic abnormality. IR US Vascular 09/05/24 IMPRESSION: 1. TECHNICALLY SUCCESSFUL INSERTION OF RIGHT-SIDED SUPRADIAPHRAGMATIC DUAL-LUMEN TUNNELED REECE CATHETER, WITH TIP IN THE EXPECTED LOCATION OF THE RIGHT ATRIUM. THE CATHETER IS READY FOR USE. 2. SUCCESSFUL LEFT UPPER EXTREMITY PICC LINE REMOVAL. LAB WORK: See attached RD documentation for pertinent results Physical Exam: BP 107/67 (BP Site: Right Arm, BP Position: Sitting, BP Cuff Size: Regular Adult) Pulse 72 Temp 37.1 C (98.8 F) (Temporal) Ht 170.2 cm (5' 7 ) Wt 63.5 kg (140 lb) LMP 12/22/2024 (Exact Date) SpO2 100% BMI 21.93 kg/m Body mass index is 21.93 kg/m . GENERAL/CONSTITUTIONAL: NAD HEAD: Normocephalic EYE: PERRL, conjunctiva clear, no icterus NOSE/SINUS: Nares normal, septum midline, mucosa normal OROPHARYNX: Moist mucous membranes NECK/LYMPHATIC: Supple CARDIAC: +S1/S2. RRR, no murmurs or clicks RESPIRATORY: Clear to auscultation BL GASTROINTESTINAL: Abdomen soft, non-tender, +BS, ileostomy present with no abnormalities noted, no masses or palpable organomegaly NEURO: Muscle tone normal, age-appropriate gait, no involuntary motions GENITOURINARY: Deferred MUSCULOSKELETAL: Extremities with FROM EXTREMITY: Normal exam, no clubbing, cyanosis, or edema SKIN: Normal color, no jaundice or rash; central line insertion site clean, with no erythema, purulent discharge, or tenderness Assessment IMPRESSION: Francine Hobson is a 39 year old female seen today for follow up of home TPN and mild malnutrition in the setting of 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 Francine Hobson had the opportunity to have all her concerns and questions addressed today and appears satisfied with the plan of care. DIAGNOSTIC ISSUES AND PLAN: 1. On total parenteral nutrition (TPN) (Z78.9) 2. Malnutrition of mild degree (HCC) (E44.1) 3. Therapeutic drug monitoring (Z51.81) Patient has gained significant weight, from 105 lbs on September 01 to 140 lbs today, indicating improvement in nutritional status. Currently on TPN, which is effectively managing nutritional needs. Diet includes dairy-free, gluten-free, and low-sugar foods, with frequent meals throughout the day. Oral rehydration solutions (ORS) are being used, with 4 packets of Drip Drop per day. Output from ileostomy has decreased to 2-3 liters per day. - Continue TPN therapy. - Increase Drip Drop intake to 6-8 packets per day to improve hydration. - Attempt to double Metamucil intake to 2 tablespoons in the morning and 2 in the evening to make ileostomy output grittier/thicker. - Monitor weight and bowel movements closely. - Weekly lab draws to monitor nutritional status and electrolyte balance. - Follow-up with me in clinic post-surgery to evaluate the possibility of weaning off TPN, depending on clinical course. 4. Crohn's disease of small bowel 5. Presence of ileostomy (HCC) (Z93.2) Patient is on Skyrizi for Crohn's disease, with no reported issues. Budesonide has been tapered off. Anticoagulation is managed with Lovenox injections due to previous blood clots. Ileostomy output has decreased to 2-3 liters per day. Patient reports occasional nausea and vomiting, possibly related to Crohn's disease. No current issues with the ileostomy site. - Continue Skyrizi therapy. - Patient to coordinate with cardiology and surgical team regarding anticoagulation management before upcoming surgery on February 15. - Continue current bowel management regimen with Imodium, Lomotil, and fiber supplements. - Monitor for any changes in ileostomy output or signs of obstruction. - Scheduled for ileostomy reversal surgery on February [address] Rousseau. 6. Central venous catheter in place, permanent (Z95.828) Current central venous catheter is clean with no signs of infection. Previous infections and blood clots have resolved. Ethanol locks are being used for infection prevention. - Continue ethanol locks as prescribed. - Monitor for any signs of infection or complications at the catheter site. - Coordinate with home health services for regular dressing changes and maintenance. - Discuss potential removal of the catheter post-surgery, depending on clinical status and nutritional needs. FOLLOW-UP: 2-3 months (~1 month after planned surgery) Berna Mike DO Staff, Department of Gastroenterology, Hepatology & Nutrition Digestive Disease & Surgical [facility] 01/08/25 Some aspects of note were written by [employer] Luna garcia Total time of this patient encounter today was >49 mins, including: preparation for visit, direct time with the patient, examination, orders, review of records, and documentation. [facility] NAME: Francine Hobson AGE: [age] year old : PHONE: [phone] (home) [phone] (cell) Referring MD: No referring provider defined for this encounter. PCP: No primary care provider on file. Initial Visit This is a 39 year old female with an underlying diagnosis of Crohn's disease since 2007 and a physiology of SBS since 08/18/24. She has been followed by HPN since 08/08/24 who referred her to RT for further medical management of malabsorption. Patient reports that if she is late hooking up to PN she has obvious signs of dehydration, muscle cramping. She infuses PRN IVF 2-3 times weekly. She reports ostomy output has reduced from 4 L to 2-3 L daily. She has been taking some ORS and limiting simple sugars in her diet. Reconnective surgery is planned with [facility] scheduled for 02/15/25. Discussed that PN has been of great benefit of patient and would benefit would continuing through her reconnection surgery. She did mention that due to a change in insurance, she no longer has [facility]. She would like to use the [facility] infusion center for labs/dressing changes moving forward. Today she plans to have labs drawn at [facility]. Last Intestinal Surgery: 08/18/24: XL, excision ICA, creation end ileostomy. Anatomy: Per Surgical history, the patient has 130 cm of small bowel to ileostomy and majority of colon out of continuity, ?ICV, + rectum and + anus. Co-morbidities: HPN since 08/08/24 PICC associated DVT 09/02/24 (on Lovenox) Intake: Appetite is good. Patient follows a low simple sugar, Dairy free and gluten free diet, taking multiple small meals. This is not nutritionally adequate given degree of malabsorption. Patient also takes ORS and 1-2 servings of Ensure HP or Fairlife LF liquid supplement daily. Patient drinks 2-3 liters of fluid daily. Diet Recall: Abbreviated due to shortened visit Grazes all day long, including when she wakes up at night Breakfast: oatmeal, hard boiled eggs Eats rice/pasta, lean meats or tuna Avoids: fruits and veggies Beverages: Drip Drop (32 oz per day), coffee, water, protein shakes (Ensure HP), Fairlife Protein shakes lactose free Patient has been on home PN since 08/08/24 for a condition of high ostomy output. Plans are to continue with PN until patient transitions to enteral nutrition for 3-6 months. Note plans for future stoma takedown. Dr. Rousseau was hopeful patient would be able to wean before then, however, question ability at this time. Patient reports no problems with TPN infusions at this time. Patient reports no fevers at home. PN/IV/EN: Patient takes 4 liters of PN 7 days per week. This is managed by [facility] HPN, Dr. Mike. Home Care: [facility] P: [phone], F: [phone] IV Pharmacy: [facility] P: [phone], F: [phone] Output: Urine output is medium in color and is estimated to be 900-1000 mL daily. The patient empties ostomy 15, times per day, 2-3 L daily (4-5 times per night, before/during/after meal). The output is watery. Relation to food/ fluid immediately. She denies foamy/frothy stools. Occasional greasy/oily stools. Laboratory: Lab Collected Date 12/29/2024 11/20/2024 11/13/2024 11/06/2024 10/23/2024 10/11/2024 09/27/2024 Lab Source [facility] Na (mEq) 137 137 138 141 139 135? K (mEq) 4.5 4.5 4.3 4.2 3.8 4.6 Cl (mEq) 101 102 102 104 102 103 CO2 (mmol/L) 24 26.5 28.2 29.7 28.2 23 BUN (mg/dL) 20 27? 29? 23? 28? 24 Creatinine (mg/dL) 0.53? 0.67 0.66 0.66 0.58 0.46? Glucose (mg/dL) 104? 94 85 87 89 90 Calcium (mg/dL) 9.1 8.8 9 9.3 3? 8.7? Total Protein (g/dL) 7.2 7 7 7.5 7.6 5.3? Alb (g/dL) 4 3.3? 3.3? 3.6 3.5 3.3? AST (SGOT, U/L) 37? 19 15 23 18 33 Alk Phos (g/dL) 120 110 87 100 109 68 Total Bili (mg/dL) 0.5 0.4 0.2 0.3 0.3 0.2? ALT (U/L) 46? 54 32 38 33 47 Mg (mg/dL) 2 2.1 2 2 1.8 1.85 PO4 (mg/dL) 3.7 3.4 4.7 4.8? 3 4.3 WBC (K/uL) 6.38 5.8 6.2 5.3 7.6 3.2? Hgb (g/dL) 12.2 12 11.5? 12.2 11.5? 9.9? Hct (%) 36 35.8? 36.3 38.2 35.8? 29.7? MCV (fL) 87 87.3 90.3 91.6 91.8 90 RDW (%) 13.5 13.5 14.2 14 14.4 17.2? Platelet (K/uL) 200 203 213 224 273 139 Zinc (ug/dL) 68 Manganese (ug/dL) 10.3 Copper (ug/dL) 127 Selenium (ug/L) 107.7 Medications: Current Outpatient Medications Medication Sig enoxaparin (LOVENOX) 80 mg/0.8 mL Inject 0.625 mL subcutaneously once daily. Inject entire contents of one(1) syringe psyllium (METAMUCIL FIBER SINGLES) 3.4 gram packet Take 1 packet by mouth once daily. loperamide (IMODIUM) 2 mg cap(s) Take 2 capsules by mouth before meals and at bedtime. diphenoxylate-atropine (LOMOTIL) 2.5-0.025 mg per tablet Take 2 tablets by mouth before meals and at bedtime for 90 days. ondansetron orally disintegrating (ZOFRAN ODT) 4 mg disintegrating tablet Take 1 tablet by mouth every 8 hours as needed for nausea/vomiting (first line). pantoprazole DR (PROTONIX) 40 mg tablet Take 1 tablet by mouth once daily. promethazine (PHENERGAN) 25 mg tablet Take 1 tablet by mouth every 6 hours as needed for nausea/vomiting (second line). acetaminophen (TYLENOL) 500 mg tablet Take 2 tablets by mouth every 6 hours as needed (mild, moderate pain). propranolol (INDERAL) 10 mg tablet Take 10 mg by mouth once daily. As needed for panic attacks amitriptyline (ELAVIL) 25 mg tablet Take 25 mg by mouth daily at bedtime. dicyclomine (BENTYL) 10 mg capsule Take 10 mg by mouth three times a day. Lactobacillus acidophilus (PROBIOTIC ACIDOPHILUS ORAL) Take 1 capsule by mouth once daily Cholecalciferol, Vitamin D3, (VITAMIN D) 25 mcg (1,000 unit) cap Take 1,000 Units by mouth once daily. midodrine (PROAMATINE) 10 mg tablet Take 10 mg by mouth three times a day. (Patient not taking: Reported on 12/25/2024) hydrOXYzine HCl (ATARAX) 25 mg tablet Take 25 mg by mouth three times a day as needed for anxiety. citalopram (CELEXA) 40 mg tablet Take 40 mg by mouth once daily. No current facility-administered medications for this visit. Prior response to CGRT therapy: ORS: taking Drip Drop, 32 oz daily Benefiber: Has taken metamucil packets and pills, stopped taking, did not seem to help Imodium: Taking 2 tabs 30 min AC/HS, helping Lomotil: Taking 2 tabs 30 min AC/HS, helping Codeine: Never tried Tincture of Opium: Has taken in the past but did not think it helped, did not like taste, was dosed at 0.3 mL every 4 hrs PRN Pancreatic Enzymes: Never tried Probiotics: Taking Lactobacillus Antimicrobials: Never tried Antisecretory: Never tried Bile acid binding resin: Has tried, does not recall if working Growth Hormone: N/A GLP2: Never tried Crohn's management: Suni ALLERGIES Allergen Reactions Ibuprofen Other: See Comments Nsaids (Non-Steroid* Other: See Comments I have reviewed allergies and medications. PAST MEDICAL HISTORY Diagnosis Date Crohn disease (HCC) PAST SURGICAL HISTORY Procedure Laterality Date BOWEL RESECTION HX PICC LINE INSERT/CONSULT 08/21/2024 IV access device: right double lumen Reece catheter placed 10/06/24. Catheter tip lies in the right atrium per procedure report. The catheter exit site is clean and dry. The exit site suture is intact. The catheter tunnel is normal appearing. The cuff is not exposed. Patient is prescribed 50% ethanol lock therapy. Patient is using as prescribed and does not have any side effects. Anthropometrics: Height: 5'6 Weight: 140 lb/63.6 kg (); 118 lbs (09/19/24 w/ clothes, shoes, PN backpack, etc); 114 lbs (09/18/24); 115.5 lbs (09/04/24) Usual weight: 115 lbs Goal weight: 130-140 lbs BMI 21.93 kg/m^2 - normal Weight has increased by 10 kg over 4 months representing 19 % weight change Estimated Daily Nutritional Needs: 1600 - 2200 kcals/day = 25 - 35 kcals/kg dosing weight 95 - 125 g protein/day = 1.5-2.0 g/kg dosing weight Nutrition Focused Physical Exam: Subcutaneous Fat Loss: Orbital: None Triceps: None Mid-axillary at the iliac crest: None Muscle Loss Locations: Temporalis: None Pectoralis: None Deltoids: None Interosseous: None Latissimus dorsi, trapezius: Unable to determine at this time Quadriceps: Mild Gastrocnemius: Mild Ascites: No Edema: No Functional status: Functional capacity is unrelated to nutrition status Potential Signs of Inflammation: chronic condition Potential micronutrient deficiency revealed in No deficiency identified 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 Illness or Injury based on: Muscle Loss Mild Loss Overall Assessment: Crohn's disease c/b recurrent pSBOs High ostomy output Hx of PICC-associated DVT CGRT Recommendations: Diet: Low simple sugar, dairy free, gluten free, food choices with multiple small meals Oral Rehydration Solution (ORS): 1.5-2 liters ORS sipped between meals, take in place of regular water, discussed sipping between meals, and continuing to avoid food and fluids Supplemental Fiber: Switch from opening capsules to 2 Tablespoon Metamucil powder; trial increase from once to twice daily Liquid Supplements: Continue Ensure HP or Fairlife dairy free 1-2 times daily PN: Changes to be made to the patient's PN / IV formula: -None at this time Vitamin & Mineral Supplements: Continue MVI and Trace Elements via PN -Continue Vitamin D 1000 units daily, repeat level with next routine labs Antidiarrheal Medication: Imodium 2 2mg caplet(s), 30 minutes before meals and bedtime Lomotil 2.5 mg tab, take 2 tab, 30 minutes before meals and bedtime Probiotics: -Continue Lactobacillus Acidophilus daily Other: Zofran, phenergan This patient does not need to be evaluated for iron deficiency anemia and metabolic bone disease (DXA). Labs: CMP, Mg, Phos, and CBC due this week, patient will have drawn today at [facility]. Trace elements due 06/2025. Add Vitamin D to next routine labs. Patient Group: CGRT + HPN Follow Up: Return to clinic in 2-[address] Mike and RT RD, 1 month after planned reconnection surgery scheduled for 02/15/25.. Signed by: Elsy Hunter MS, RD, LD, CNSC 01/09/2025 The following reflects my findings: [facility] STAFF PHYSICIAN NOTE OF PERSONAL INVOLVEMENT IN CARE I have reviewed the history obtained and documented by Elsy Hunter RD and I personally participated in the price components. I have discussed the case and management of the patient's care. The following comments revise or confirm relevant price components of the note. documented in this encounter [facility] 01-09-2025 Note [facility] 01-09-2025 Note [facility] 01-08-2025 Note [facility] 01-08-2025 History of Present illness Narrative [facility] ([facility]) Abstract moved to 01/09/[address] Mike. NAC increments for pre and post clinic coordination of care. Elsy Hunter MS, RD, LD, CNSC documented in this encounter [facility] 01-01-2025 Miscellaneous Notes Home Nutrition Support Service Call to patient re: Mild ALT/AST elevation. Pt notes she did take some tylenol for a headache a couple weeks ago but it was only ~500 mg and has not taken any since then. She denies starting any other medications. She is asymptomatic of the elevation. Noted she is a bit over her intiial goal weight of 130 lbs at this time. Current weight 139 lbs and would like to maintain 135-140 lbs - she is within a healthy BMI. Discussed what elevation in LFT's means and discussed trying to optimize her from an anti diarrheal standpoint to reduce her reliance on PN. Already we can decrease her PN slightly and monitor, with goal to maintain. She will see Dr. Mike next week. Recs: - Slight PN reduction by 150 kcal dextrose (was recieving >1000 kcal dextrose). SMOFLipid meets ~30% est energy needs which is appropriate - labs next week to monitor LFT s (this will align with her appt w/ Rashid on 01/09) - Hopeful to switch patient over to [facility] CL on 01/09 (currently scheduled w/ HPN with no RD available) Parker Arce RD documented in this encounter [facility] 01-01-2025 Telephone encounter Note Home Nutrition Support Service Call to patient re: Mild ALT/AST elevation. Pt notes she did take some tylenol for a headache a couple weeks ago but it was only ~500 mg and has not taken any since then. She denies starting any other medications. She is asymptomatic of the elevation. Noted she is a bit over her intiial goal weight of 130 lbs at this time. Current weight 139 lbs and would like to maintain 135-140 lbs - she is within a healthy BMI. Discussed what elevation in LFT's means and discussed trying to optimize her from an anti diarrheal standpoint to reduce her reliance on PN. Already we can decrease her PN slightly and monitor, with goal to maintain. She will see Dr. Mike next week. Recs: - Slight PN reduction by 150 kcal dextrose (was recieving >1000 kcal dextrose). SMOFLipid meets ~30% est energy needs which is appropriate - labs next week to monitor LFT s (this will align with her appt sebas/ Rashid on 01/09) - Hopeful to switch patient over to [facility] CL on 01/09 (currently scheduled w/ HPN with no RD available) Parker Arce RD [facility] 12-29-2024 Note Addended by: DARLENE SOLIS on: 12/29/2024 01:47 PM Modules accepted: Orders [facility] 12-29-2024 Miscellaneous Notes Addended by: DARLENE SOLIS on: 12/29/2024 01:47 PM Modules accepted: Orders Home Nutrition Support Service Received call from patient asking if she can also get dressing changed at [facility] today with lab draw. She also notes her insurance has resumed and needs referral to resume HHC with [facility]. Advised pt can walk in to [facility] and ask RNs for dressing change - will also forward to NST RN to send referral Jaimie Carrasquillo RD, LD, MFN, CNSC documented in this encounter [facility] 12-29-2024 Telephone encounter Note Home Nutrition Support Service Received call from patient asking if she can also get dressing changed at [facility] today with lab draw. She also notes her insurance has resumed and needs referral to resume HHC with [facility]. Advised pt can walk in to [facility] and ask RNs for dressing change - will also forward to NST RN to send referral Jaimie Carrasquillo RD, TA, MFN, CNSC [facility] Work Phone: 12-29-2024 History of Present illness Narrative Images from the original note were not included. Heart and Vascular [facility] Department of Cardiovascular Medicine SECTION OF VASCULAR MEDICINE OUTPATIENT VISIT DATE December 29, 2024 OUTPATIENT VISIT TYPE ESTABLISHED Follow up regarding: right upper extremity DVT, clotted LUE PICC line Allergies: is allergic to ibuprofen and nsaids (non-steroidal anti-inflammatory drug). Medications: Current Outpatient Medications Medication Sig psyllium (METAMUCIL FIBER SINGLES) 3.4 gram packet Take 1 packet by mouth once daily. loperamide (IMODIUM) 2 mg cap(s) Take 2 capsules by mouth before meals and at bedtime. diphenoxylate-atropine (LOMOTIL) 2.5-0.025 mg per tablet Take 2 tablets by mouth before meals and at bedtime for 90 days. ondansetron orally disintegrating (ZOFRAN ODT) 4 mg disintegrating tablet Take 1 tablet by mouth every 8 hours as needed for nausea/vomiting (first line). pantoprazole DR (PROTONIX) 40 mg tablet Take 1 tablet by mouth once daily. promethazine (PHENERGAN) 25 mg tablet Take 1 tablet by mouth every 6 hours as needed for nausea/vomiting (second line). acetaminophen (TYLENOL) 500 mg tablet Take 2 tablets by mouth every 6 hours as needed (mild, moderate pain). propranolol (INDERAL) 10 mg tablet Take 10 mg by mouth once daily. As needed for panic attacks amitriptyline (ELAVIL) 25 mg tablet Take 25 mg by mouth daily at bedtime. dicyclomine (BENTYL) 10 mg capsule Take 10 mg by mouth three times a day. Lactobacillus acidophilus (PROBIOTIC ACIDOPHILUS ORAL) Take 1 capsule by mouth once daily Cholecalciferol, Vitamin D3, (VITAMIN D) 25 mcg (1,000 unit) cap Take 1,000 Units by mouth once daily. hydrOXYzine HCl (ATARAX) 25 mg tablet Take 25 mg by mouth three times a day as needed for anxiety. citalopram (CELEXA) 40 mg tablet Take 40 mg by mouth once daily. enoxaparin (LOVENOX) 80 mg/0.8 mL Inject 0.625 mL subcutaneously once daily. Inject entire contents of one(1) syringe midodrine (PROAMATINE) 10 mg tablet Take 10 mg by mouth three times a day. (Patient not taking: Reported on 12/25/2024) No current facility-administered medications for this visit. Review of history: Hospital admit from 08/17/2024 to 08/30/2024, 09/02/2024 to 09/06/2024 39 year old female with past medical history of Crohn's ileocolitis status post ileocecal resection 2008, recurrent partial small bowel obstruction who presented with complaints of abdominal pain along with nausea and vomiting. She did have a recent hospital admits from 07/19-07/30/2024 and then 07/30-08/08/2024 for management of a partial small bowl obstruction and multiple abscesses. CT scan revealed fibrotic strictured segment of the neoterminal ileum with proximal dilation of the small bowel. Patient is now status post exploratory laparotomy, excision of previous ileocolic anastomosis and end ileostomy on 08/18/2024. Patient was found to have a right upper extremity brachial DVT on 08/21/2024. Patient has been off an on prophylactic Lovenox injections since admit due to patient having difficulty with needles. Repeat imaging done on 08/28/2024 revealed extension of the existing clot and presence of a new axillary vein thrombosis. Patient was increased to weight based Lovenox SC q 12 hours. She has a high output ostomy and is on TPN for now. Patient was readmitted for clotted LUE PICC line. While in the hospital at still patient had a PICC line in her RUE and developed an acute axillary DVT. This line was removed and one was placed in her LUE. IR was consulted and took her for a double lumen reece placement and removal of PICC line under general anesthesia on 09/05. Patient was inconsistent with Lovenox injections due to fear/ anxiety over injections. She was transitioned to Eliquis 5 mg q bid. Due to high ostomy output, patient started seeing pills in her ostomy bag. She started crushing the Eliiqus to take it. Patient continued to have marilee ostomy output. She was transitioned bay to Lovenox at 1.5 mg/kg/dose sc q day. Subjective: Patient takes the Lovenox 1.5 mg/kg/dose sc q day as prescribed. She does not report issues with easy bruising or bleeding. Patient continues to have high ostomy output. She continues to have a Reece in place. Objective: BP 116/73 (BP Site: Left Arm, BP Position: Sitting, BP Cuff Size: Small Adult) Pulse 74 Ht 170.2 cm (5' 7 ) Wt 63.5 kg (140 lb 1.6 oz) LMP 12/22/2024 (Exact Date) SpO2 100% BMI 21.94 kg/m General: Alert and oriented, in no acute distress, pleasant mood. Skin: Healthy, intact, no ulcerations, no rashes. HEENT: neck supple Cardiovascular: Reece noted int he right chest. Heart has a regular rate and rhythm without murmur. Respiratory: Lungs clear auscultation bilaterally. Gastrointestinal: Ostomy noted, Abdomen soft and nontender. Musculoskeletal: No cyanosis or clubbing, muscle wasting noted Peripheral vascular: Reece noted in the right chest. Dorsalis pedis and posterior tibial pulses 2+/2 bilaterally. Lower extremities: No edema noted in the upper or lower extremities Imaging US Arm Vein DVT [facility] 12/29/2024: IMPRESSION Compared to prior study of 09/19/2024, Previous deep vein thrombosis no longer visualized on today's exam. RIGHT SIDE - DEEP VEINS Technically limited study. Negative for acute deep vein thrombosis in vessels visualized. Unable to visualize the subclavian vein and axillary vein due to IV lines and bandages. High bifurcation noted. LEFT SIDE - DEEP VEINS Negative for acute deep vein thrombosis. High bifurcation noted. US DVT Upper Left 09/19/2024: IMPRESSION Technically difficult exam due to bandages and lines. Compared to prior study of 08/28/2024, unable to visualize known deep vein thrombosis in the right subclavian and axillary veins due to bancages and lines. Similar findings noted in the left side; left side compared to [facility] 09/01/2024. RIGHT SIDE - DEEP VEINS Unable to visualize the subclavian vein and axillary vein due to bandages and IV lines. High bifurcation noted of the brachial vein. Only segments visualized of the internal jugular vein. LEFT SIDE - DEEP VEINS Negative for propagation of known deep vein thrombosis in the subclavian vein and axillary vein. Mobile tail of thrombus noted in the subclavian vein. US DVT Upper Left 09/01/2024: IMPRESSION: Left cephalic vein not visualized. Positive study for acute DVT in the left upper extremity. Nonocclusive thrombus associated with indwelling left upper extremity PICC catheter at the left subclavian vein. Negative study for superficial thrombophlebitis in the imaged segments of the left upper extremity. US Arm Vein DVT [facility] 08/28/2024: IMPRESSION Naomi Cortes PA-C was notified with results at 10:38 AM. Compared to prior study of 08/21/2024, there is propagation of thrombus into the mid brachial vein and the axillary vein today. RIGHT SIDE - DEEP VEINS Acute deep vein thrombosis in the axillary vein. Positive for propagation of the known deep vein thrombosis in the brachial vein from proximal to mid. High bifurcation noted of the brachial vein. LEFT SIDE - DEEP VEINS Spontaneous and respirophasic flow noted in the subclavian vein. IV line noted within the subclavian vein. US Arm Vein DVT [facility] 08/21/2024: IMPRESSION Bernadette Hammond APRN [employer] was notified with results at 10:55 AM. RIGHT SIDE - DEEP VEINS Clinical correlation to prior indwelling line is required. Repeat imaging in 5-7 days is recommended. Focal, non-occlusive filling defect consistent with fibrin sheath versus thrombus is visualized in the brachial vein at proximal. LEFT SIDE - DEEP VEINS Spontaneous and respirophasic flow noted in the subclavian vein. CT Enterography w ivcon 07/30/2024: IMPRESSION: STRICTURE WITH IMAGING FINDINGS OF ACTIVE INFLAMMATION PENETRATING DISEASE: ABSENT Suspected at least partial small bowel obstruction with transition point in the left lower quadrant starting at the level of approximately 30 cm of active inflammatory changes with multifocal stricturing in the neoterminal ileum. Short segment area of active inflammation in the transverse colon without upstream dilation. 1.5 cm right buttock superficial cystic lesion, most likely a small abscess or epidermal inclusion cyst. Assessment: 39 year old female with past medical history of Crohn's ileocolitis status post ileocecal resection 2008, recurrent partial small bowel obstruction who presented with complaints of abdominal pain along with nausea and vomiting. She did have a recent hospital admits from 07/19-07/30/2024 and then 07/30-08/08/2024 for management of a partial small bowl obstruction and multiple abscesses. CT scan revealed fibrotic strictured segment of the neoterminal ileum with proximal dilation of the small bowel. Patient is now status post exploratory laparotomy, excision of previous ileocolic anastomosis and end ileostomy on 08/18/2024. Patient was found to have a right upper extremity brachial DVT on 08/21/2024. Patient has been off an on prophylactic Lovenox injections since admit due to patient having difficulty with needles. Repeat imaging done on 08/28/2024 revealed extension of the existing clot and presence of a new axillary vein thrombosis. Patient was increased to weight based Lovenox SC q 12 hours. She has a high output ostomy and is on TPN for now. Patient was readmitted for clotted LUE PICC line. While in the hospital at still patient had a PICC line in her RUE and developed an acute axillary DVT. This line was removed and one was placed in her LUE. IR was consulted and took her for a double lumen reece placement and removal of PICC line under general anesthesia on 09/05. Patient was inconsistent with Lovenox injections due to fear/ anxiety over injections. She was transitioned to Eliquis 5 mg q bid. Due to high ostomy output, patient started seeing pills in her ostomy bag. She started crushing the Eliiqus to take it. -US DVT Upper Left 09/19/2024: Technically difficult exam due to bandages and lines. Compared to prior study of 08/28/2024, unable to visualize known deep vein thrombosis in the right subclavian and axillary veins due to bandages and lines. Similar findings noted in the left side; left side compared to [facility] 09/01/2024. Patient continued to have marilee ostomy output. She was transitioned bay to Lovenox at 1.5 mg/kg/dose sc q day. US Arm Vein DVT [facility] 12/29/2024: Compared to prior study of 09/19/2024, Previous deep vein thrombosis no longer visualized on today's exam. Patient is planned for ostomy reversal on 02/15/2025. She will likely have the Reece removed after that. Patient wants to continue the Lovenox at her current dose. plan: Continue Lovneox 80 mg sc q day Monitor for signs of bleeding Duration of therapeutic anticoagulation is as long as the Reece port is in place. Ordered virtual visit follow up with me around 03/2025 Mariam Dupont PA-C December 29, 2024 2:22 PM documented in this encounter [facility] 12-29-2024 Note [facility] 12-29-2024 Instructions Mariam Dupont PA-C - 12/29/2024 12:48 PM EDT Continue Lovneox 1mg/kg/dose (80 mg) sc q day Monitor for signs of bleeding Duration of therapeutic anticoagulation is as long as the Reece port is in place Ordered virtual visit follow up with me around 03/2025 documented in this encounter [facility] 12-28-2024 Telephone encounter Note Images from the original note were not included. Patients insurance is back active and the Skyrizi approved 1st infusion scheduled 01/02/25, 2nd infusion scheduled 01/30/25. Will need to get auth extended to cover dose #3. Gloria Hobbs LPN [facility] 12-28-2024 Miscellaneous Notes Images from the original note were not included. Patients insurance is back active and the Skyrizi approved 1st infusion scheduled 01/02/25, 2nd infusion scheduled 01/30/25. Will need to get auth extended to cover dose #3. Gloria Hobbs LPN Called spoke with patient who stated she called to follow up last week and was advised.she will receive a determination in the mail. Patient stated she has not yet received anything but she has been following up with her local pharmacy to try and retreive her lovenox prescription but has been advised the coverage is still not active. Gloria Hobbs LPN Images from the original note were not included. Chart follow up patient was scheduled for all 3 IV loading doses for Skyrizi. Dose # 1 was scheduled for 12/05/24. All appointments have been cancelled. Discovered below note Called spoke with patient to inquiry and advise of patient assistance option if needed. Patient stated she lost her coverage effective 12/02/24. Patient stated she is in the process of trying to get her benefits back and she will follow up today to check status because it has been a week since she applied. She stated she will let the office know of the outcome for next steps. Gloria Hobbs LPN documented in this encounter [facility] 12-26-2024 Instructions Fartun Carpio MD - 12/26/2024 10:13 AM EDT Sun protection You need to protect your skin from the sun every day, even when it's cloudy. That's because the sun's damaging ultraviolet A (UVA) and ultraviolet B (UVB) rays go right through clouds. Too much sun can make your skin wrinkly and might even give you skin cancer. To protect yourself: Use sunscreen with a sun protection factor (SPF) 30 or above and reapply every 2 hours Sunscreens are not an alternative to clothing and shade, rather they offer additional protection. No sunscreen will provide 100% protection. Look for a sunscreen that protects you from both UVA and UVB rays. When a sunscreen protects against both, the bottle should say the sunscreen offers broad-spectrum sun protection (if you want to make sure, ingredients should include zinc oxide or avobenzone). If you have eczema or sensitive skin a mineral sunscreen would be ideal for your skin type (should include zinc oxide and titanium dioxide). These can be found in Neutrogena Sensitive Skin Sunblock, Vanicream Sunscreen Sensitive Skin, Blue Lizard Sensitive Skin and EltaMD UV Physical Sunscreen. Always make sure the bottle hasn t , as sunscreens loose efficacy when Additional sun protection can be achieved by wearing a rash guards, hat, sunglasses, and clothes that cover your arms and legs. You can make your own clothes sun protective with Sun Guard Laundry Treatment UV Protectant (for sale on [employer]), just with one laundry cycle with Sun Guard gives clothing sun protection for 20 future washes and does not change the way your clothes look or feel. Sun protective clothing is another great option to protect your skin from the sun. There are several brands such as Coolibar and can be found online or at stores like [employer]. Seek shade when the sun's rays are strongest, between 10 a.m. and 2 p.m. Do not use tanning beds Keep babies and young children out of direct sunlight. Children should use rash guards during outdoor activities. . www.Referral.IM www.sunprecautions.[place]/shop The ABCDEs of Melanoma Skin cancer can develop anywhere on the skin. Once a month, take a look at your entire body and note any changing moles or spots. Ask someone for help when checking your skin, especially for hard to see places such as your back. If you notice a mole that looks different from others, or one that changes, enlarges, itches, or bleeds, you should see a rice farmworker. Asymmetry Border (irregularity) Color (not uniform, changes in color) Diameter (greater than 6 mm which is about the size of a pencil eraser) Evolving (any changes in pre-existing moles). In short, look for the mole that doesn't look like the others. You want all of the spots on your body to look like cousins (like they could be related). If something stands out, take a photo of it and make an appointment to have it evaluated. documented in this encounter [facility] 12-25-2024 Note [facility] 12-25-2024 History of Present illness Narrative ET/WOCN Nursing Consult Topic: ET/WOCN Consultation Note ET Outcome: Patient presents to outpatient clinic to see [facility] nursing and Dr. Rousseau. Modified pouching slightly. Also, patient requesting good way to waterproof her pouch for summer. Order form for Sure Seal Ring provided. She cannot recall who her supply company is but will call if order form needs to be faxed. ET's Next Scheduled Visit: as needed Stoma Type: End ileostomy Diameter:1 1/8 Location: RLQ Protrusion: Budded Mucosal condition and color: Red and moist Mucocutaneous junction Intact Peristomal Skin: Erythema and Denuded Location of Skin Impairment: circumferential Peristomal contour: Concave with deeper creasing at 9 o'clock Supportive Tissue: Soft Character of output: high output brown liquid. She reports she ate before appointment. Current pouching system: 1/2 moldable ring from 2-10 o'clock, 1 3/4 ConvaTec Prasad-Fit Natura Durahesive with 1 1/4 Convex-It, Drainable opaque pouch Current wearing time: less than 1 day Recommendations: Skin Care: Apply ConvaTec Stomahesive powder to irritated or denuded skin, brush away excess. 3M No sting skin barrier film applied. Pouching System: Continue with current pouching system but used 1 full Hollihesive Adapt Cera Ring with an additional 1/3 ring at 9 o'clock aspect. Wear Time: 3-4 days Time Increment: 1 hour 15 minutes Neela ROSALES, RN, [place] [address] Patient: Francine Hobson Patient Address: [address] [place] [address] [place] [address] Preferred Gender: female Date of : 1985 Type of Stoma: End Ileostomy Diagnosis: Crohn's K50.90 OSTOMY SUPPLY ORDER FORM Other: Active Lifestyle SureSeal Ring Medium #[id number] 30 day use - 1 Box Refills: 11 Attending Physician: Dr. Rousseau: Office [phone] For immediate authorization, please contact the physician s office. [facility] Nurse: BOBBY Kaur, CWOCN SIGNATURE: Neela Sanches RN PATIENT NAME: Francine Hobson DATE: December 25, 2024 TIME: 3:16 PM CONTACT #: [phone] documented in this encounter [facility] 12-25-2024 Note [facility] 12-25-2024 History of Present illness Narrative COLOR[facility] SURGERY Post-Op Visit December 19, 2024 Francine Hobson returns for a post-operative visit after undergoing Exploratory laparotomy, excision of previous ileocolic anastomosis, end ileostomy on 08/18/24. Her post-operative period was complicated by short bowel. She is tolerating diet with an improving appetite, stable weight, and energy level is improving . She has no specific complaints Current pain medications: Tylenol PRN Current bowel related medications: Imodium, Lomotil, Prescribed Tincture of Opium (but not taking anymore). Bowel movement frequency: multiple a day, 2-3L of output on average per day, liquid stools S/p Exploratory laparotomy, excision of previous ileocolic anastomosis, end ileostomy high-output ostomy and ongoing total parenteral nutrition (TPN), presenting for follow-up of her gastrointestinal status and ostomy management. She reports significant improvement in her abdominal pain and is now eating well, stating that she currently eats all foods, including dairy and gluten, after previously following a dairy-free and gluten-free diet. She notes a weight increase, with her home scale reading 131 lbs and the clinic scale reading 135 lbs. She describes her ostomy output as typically high, ranging from 2 to 3 liters, but states she has not reached 4 liters in about a month. She continues to use TPN and has not discontinued it since hospital discharge. She reports feeling persistently thirsty despite drinking large amounts of water, which has led her to use four packets of drip drops daily and, if that does not suffice, to administer intravenous fluids. Regarding bowel management, she has tried various medications provided by her care team, including opium, but discontinued opium due to perceived lack of efficacy. She continues to take metoprolol and maintains hydration as described above. She manages her ostomy independently, including changing the appliance and addressing minor skin irritation, such as a rash that developed after a leak occurred overnight. She is scheduled to restart Skyrizi infusions for her underlying condition, with her insurance coverage having recently resumed. She plans to begin monthly infusions on 01/02, with the first three doses administered in the clinic and subsequent doses at home. She is also on Lovenox injections for blood clots, with clots previously identified in her arm, neck, and further down, and reports this is her third course of Lovenox. She has not had a recent CT scan due to her blood clots. She expresses that she feels much better overall compared to prior visits. Current Outpatient Medications Medication Sig Dispense Refill psyllium (METAMUCIL FIBER SINGLES) 3.4 gram packet Take 1 packet by mouth once daily. loperamide (IMODIUM) 2 mg cap(s) Take 2 capsules by mouth before meals and at bedtime. 240 capsule 2 diphenoxylate-atropine (LOMOTIL) 2.5-0.025 mg per tablet Take 2 tablets by mouth before meals and at bedtime for 90 days. 240 tablet 2 ondansetron orally disintegrating (ZOFRAN ODT) 4 mg disintegrating tablet Take 1 tablet by mouth every 8 hours as needed for nausea/vomiting (first line). [address] (PROTONIX) 40 mg tablet Take 1 tablet by mouth once daily. 30 tablet 2 promethazine (PHENERGAN) 25 mg tablet Take 1 tablet by mouth every 6 hours as needed for nausea/vomiting (second line). 30 tablet 0 acetaminophen (TYLENOL) 500 mg tablet Take 2 tablets by mouth every 6 hours as needed (mild, moderate pain). 30 tablet 0 propranolol (INDERAL) 10 mg tablet Take 10 mg by mouth once daily. As needed for panic attacks amitriptyline (ELAVIL) 25 mg tablet Take 25 mg by mouth daily at bedtime. dicyclomine (BENTYL) 10 mg capsule Take 10 mg by mouth three times a day. Lactobacillus acidophilus (PROBIOTIC ACIDOPHILUS ORAL) Take 1 capsule by mouth once daily Cholecalciferol, Vitamin D3, (VITAMIN D) 25 mcg (1,000 unit) cap Take 1,000 Units by mouth once daily. hydrOXYzine HCl (ATARAX) 25 mg tablet Take 25 mg by mouth three times a day as needed for anxiety. citalopram (CELEXA) 40 mg tablet Take 40 mg by mouth once daily. cholestyramine (QUESTRAN) 4 gram packet Take 1 Packet by mouth two times a day with meals. (Patient not taking: Reported on 12/25/2024) 60 Packet 2 midodrine (PROAMATINE) 10 mg tablet Take 10 mg by mouth three times a day. (Patient not taking: Reported on 12/25/2024) No current facility-administered medications for this visit. ALLERGIES Allergen Reactions Ibuprofen Other: See Comments Nsaids (Non-Steroid* Other: See Comments Ht 167.6 cm (5' 6 ) Wt 63.2 kg (139 lb 6.4 oz) LMP 12/22/2024 (Exact Date) BMI 22.50 kg/m Sensitive Exam: no Abdominal examination: soft, non-distended, and non-tender without masses or hernias. Wound is well healed. Motor Tester present: Yes Patient Entered Questionnaires 09/28/2024 PROMIS Global Health Physical Health Summary Physical health: Poor Everyday physical activity, ability: A little Fatigue: Severe Pain level: 3 General health: Fair Social activities/roles, ability: Poor Physical Health T-Score (Poor) Physical Health Percentile 4 PROMIS Global Health Mental Health Summary Quality of life: Poor Mental health (mood,thinking): Fair Social satisfaction: Poor Emotional problems (anxious,depressed): Often Mental Health T-Score (Poor) Mental Health Percentile 2 Failed to redirect to the Timeline version of the [employer] SmartLink. Failed to redirect to the Timeline version of the [employer] SmartLink. 09/28/2024 PROMIS Global Health Physical Health Summary Physical health: Poor Everyday physical activity, ability: A little Fatigue: Severe Pain level: 3 General health: Fair Social activities/roles, ability: Poor Physical Health T-Score (Poor) Physical Health Percentile 4 PROMIS Global Health Mental Health Summary Quality of life: Poor Mental health (mood,thinking): Fair Social satisfaction: Poor Emotional problems (anxious,depressed): Often Mental Health T-Score (Poor) Mental Health Percentile 2 Assessment Assessment: Francine Hobson is a 39 year old female who is 4 months status post ileocolic resection , small bowel resection and end ileostomy . Plan Plan: 1. 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 Currently on Lovenox injections. - Continue Lovenox injections. - Discussed with pump assembler Dr. Hoover regarding timing of Skyrizi infusions and potential 2. Encounter for surgical aftercare following surgery of digestive system (Z48.815) Patient is scheduled for surgery on February 15 to reconnect the colon. Currently on TPN and has a stoma with some skin irritation. - Scheduled surgery for February 15 for denominational of intestinal continuity - Will attempt to use the same incision to minimize scarring. - Sent consent form via Fivejack for patient to sign. - Consulted stoma nurse to address skin irritation. 3. 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 Patient is also starting Skyrizi infusions on January 02. - Monitor stoma output and nutritional intake. - Ensure patient receives at least two Skyrizi infusions before surgery. - Discussed with Dr. Hoover to confirm timing of surgery in relation to Skyrizi infusions. Elsy Rousseau DO documented in this encounter [facility] 12-25-2024 Note [facility] 12-25-2024 History of Present illness Narrative New Patient Consultation requested by Dr. Aracely Lentz for an opinion regarding the evaluation and treatment of skin evaluation - Crohn's disease on Skyrizi. My final recommendations will be communicated back to the requesting physician by way of shared medical record or letter via US mail. Chief Complaint: FBSE History of Present Ilness: Francine Hobson is a 39 year old female Patient is here for a Full body skin exam. 1. LOC Location: right posterior lower leg Duration: since july - Hx of Crohn's disease - currently in the process of beginning skyrizi, first infusion scheduled January 02 - Has had itchy blistery rash on the hands and legs, which she thinks is associated with lovenox injections. Resolved, but also had blistery/pimply rash around the nasal ala as well. No photos today, not present today. Pertinent Past Medical History: History of skin cancer or atypical nevi No Specialty Problems None Pertinent Family medical history: History of melanoma No Review of Systems: Constitutional: Denies fever, chills, night sweats, unintentional weight loss. Skin per HPI. No other new/concerning skin growth. Physical Exam: General: well appearing, of stated age, in no acute distress Neurology: alert and oriented times three Psychiatry: in a happy mood Skin: Bates skin type: I Skin exam performed of face, scalp, ears, eyelids, lips, neck, chest, abdomen, back, bilateral upper extremities, hands, fingers, fingernails, bilateral lower extremities, feet, toes, toenails. Skin exam normal with the exception of: -Diffuse gutierrez, homogeneous macules with ill-defined moth-eaten margins in sun exposed areas -Involving trunk and extremities are numerous gutierrez, stuck-on appearing keratotic papules -Scattered on the trunk and extremities are numerous pigmented macules and papules with reassuring clinical and dermatoscopic features -Scattered on torso are numerous red, round discrete vascular papules - Right inferior buttock with soft, mobile subcutaneous mass Assessment and Plan: #Hx of Crohn's disease on Skyrizi #Immunocompromised -Recommend FBSEs every 1-2 years given hx of immunosuppressive medication usage. - Regular skin exams discussed given increased risk of subsequent cutaneous malignancies. - Should any areas change in size, shape or color, bleed or become tender, the patient will contact the office for evaluation sooner than their interval appointment. #Lentigines, chin angiomas, seborrheic keratoses -Reassurance provided regarding the benign nature of these lesions -Recommend monthly self skin exam. Return for new, changing or otherwise concerning skin lesions. #Multiple benign nevi - Complete skin exam performed today with no outlier lesions identified - Reassured patient of benign nature of these lesions - Discussed ABCDEs of melanoma and encouraged patient to monitor lesions for clinical change -Recommend monthly self skin exam. Return for new, changing or otherwise concerning skin lesions. #Subcutaneous nodule, favor lipoma - Reviewed the etiology and natural history of the lesion with the patient. - Reviewed treatment options including excision and observation along with risks, benefits, and alternatives of each - No further intervention required at this time. If patient desires excision will schedule at that time. Patient will defer until at least February which is when her next surgery for Crohn's is. #Rash NOS - hands, nasal ala Medical Complexity: Undiagnosed new problem with uncertain prognosis - Not present on exam today. - Patient to schedule appointment if lesions return or to message. - Discussed that hand rash based on description is most likely dyshidrotic eczema, but given not present today can consider deferring treatment until it returns. Would recommend clobetasol if recurs and is consistent with dyshidrotic eczema. Unclear what the nasal ala rash is as well (maybe papulopustular rosacea?) but pt will message if it returns. Discussed this with the patient. Recommend monthly self skin exams. Return for lesions that are growing, changing or symptomatic. Recommend daily photoprotection with broad-spectrum sunscreen SPF 30+, avoidance of sun during peak hours, and sun protective clothing. Return to clinic 1-2 years for FBSE or sooner if something concerning arises. The documentation for this note was completed by Lynne Wilder RN acting as scribe for Fartun Carpio MD. December 25, 2024 1:28 PM. Medical Decision Making: Problems: Moderate: New problem with uncertain prognosis Risk: Low: Low risk from testing/treatment Medical Decision Making Level: 3 - Low I agree with the Chief Complaint, ROS, and Past Histories independently gathered by the clinical child support specialist and resident physician, and the remaining scribed note accurately describes my personal service to the patient. I was physically present during the critical/price portions of this encounter and during all procedures, and agree with the above evaluation, assessment, and treatment plan. I reviewed the patient's chart and discussed care with the patient and the other physicians involved. Fartun Carpio MD December 25, 2024 documented in this encounter [facility] 12-25-2024 Note [facility] 12-20-2024 Telephone encounter Note Called spoke with patient who stated she called to follow up last week and was advised.she will receive a determination in the mail. Patient stated she has not yet received anything but she has been following up with her local pharmacy to try and retreive her lovenox prescription but has been advised the coverage is still not active. Gloria Hobbs LPN [facility] 12-07-2024 Telephone encounter Note Images from the original note were not included. Chart follow up patient was scheduled for all 3 IV loading doses for Skyrizi. Dose # 1 was scheduled for 12/05/24. All appointments have been cancelled. Discovered below note Called spoke with patient to inquiry and advise of patient assistance option if needed. Patient stated she lost her coverage effective 12/02/24. Patient stated she is in the process of trying to get her benefits back and she will follow up today to check status because it has been a week since she applied. She stated she will let the office know of the outcome for next steps. Gloria Hobbs LPN [facility] 11-29-2024 Telephone encounter Note Called Francine and informed her about PA approval at [facility]. Provided number, she will call to get scheduled. Also moved our appt back 2 weeks to 12/22. [facility] 11-29-2024 Miscellaneous Notes Called Francine and informed her about PA approval at [facility]. Provided number, she will call to get scheduled. Also moved our appt back 2 weeks to 12/22. Called and informed patient about PA approval. Would prefer to get infusion at [facility]. Updated therapy plan, confirming with PA team if new PA is needed. documented in this encounter [facility] 11-17-2024 Telephone encounter Note Called and informed patient about PA approval. Would prefer to get infusion at [facility]. Updated therapy plan, confirming with PA team if new PA is needed. [facility] 11-10-2024 Telephone encounter Note SPECIALTY CARE COORDINATION FOLLOW-UP NOTE Unable to reach Francine. Left you a voice message confirming the surgery date for 02/15 and pre op appointment date for 02/14. Will send a MyChart message. Amirah Han RN November 10, 2024 [facility] 11-10-2024 Miscellaneous Notes SPECIALTY CARE COORDINATION FOLLOW-UP NOTE Unable to reach Francine. Left you a voice message confirming the surgery date for 02/15 and pre op appointment date for 02/14. Will send a MyChart message. Amirah Han RN November 10, 2024 documented in this encounter [facility] 11-08-2024 Telephone encounter Note Patient would like to confirm 02/15 surgery date. Patient can be reached at [phone]. [facility] 11-08-2024 Miscellaneous Notes Patient would like to confirm 02/15 surgery date. Patient can be reached at [phone]. documented in this encounter [facility] 11-07-2024 History of Present illness Narrative Radiology Service Progress Note PATIENT NAME: Francine Hobson DATE OF SERVICE: November 07, 2024 TIME: 11:15 AM PATIENT IDENTITY VERIFICATION COMPLETED USING TWO (2) IDENTIFIERS: Name and Date of confirmed by patient verbally. FALL SCREENING: Has the patient had 2 falls in the last year or 1 fall with injury or currently using an Ambulatory Assistive Device (Walker, Cane, Wheelchair, Crutches, etc.)? No PATIENT GENDER DATA: Assigned female at . status: : No status: NO. PATIENT RELEVANT IMPLANT DATA REVIEWED: Not Applicable PATIENT PRESENTS WITH AN IMPLANTABLE OR ATTACHED DIGITAL CONTENT PRODUCER: No RADIOLOGY DEPARTMENT: Bone Density PERIPHERAL IV DATA: Not applicable SIGNED BY: RT Ayah(R) November 07, 2024 11:15 AM documented in this encounter [facility] 11-07-2024 Note [facility] 11-07-2024 Note HNO ID: [id number] Author: GALEN PETERSON MA Service: ? Author Type: Extraction Machine Operator Type: Progress Notes Filed: 11/07/2024 14:52 Note Text: Post Void Residual done on patient with 76 cc residual volume remaining. notified. Galen Peterson MA [facility] 11-07-2024 History of Present illness Narrative Post Void Residual done on patient with 76 cc residual volume remaining. notified. Galen Peterson MA [facility] RECONSTRUCTIVE SURGERY PATIENT HISTORY AND PHYSICAL EXAM PATIENT INFO: Francine Hobson is a 39 year old female. REFERRING M.D.: Obdulia Tejeda [address] [facility] [address] Consultation requested by Obdulia Tejeda PA-C for an opinion regarding urinary incontinence, and my final recommendations will be communicated back to the requesting provider by way of shared Medical record, fax or letter via US mail. HISTORY CHIEF COMPLAINT: Urinary incontinence and feeling of incomplete bladder emptying HPI : Francine Hobson is a 39 year old female with CD reports feelings of incomplete bladder emptying, frequency, urgency, UUI, FREDDIE, and insensate urinary leakage. QUESTIONNAIRE: FREDDIE: Yes URGENCY: Yes UI: Yes FREQUENCY:18 per day, but states she goes more frequently to avoid leaks NOCTURIA: 4 per night STRAINING TO VOID: No EMPTIES COMPLETELY: Unsure UTI: No SEXUALLY ACTIVE: Yes DYSPAREUNIA: YES PREGNANCIES: with CS x1 Post-menopause: no Have you had a hysterectomy:NO Postmenopausal bleeding:Not applicable Sense of vaginal bulge:NO HEMATURIA HX: No GI: Crohn's disease, has had 2 bowel resections end ileostomy. Do you have a history of any diagnosed back or Neurological problems:NO HISTORIES: PAST MEDICAL HISTORY Diagnosis Date Crohn disease (HCC) PAST SURGICAL HISTORY Procedure Laterality Date BOWEL RESECTION HX PICC LINE INSERT/CONSULT 08/21/2024 Social History Tobacco Use Smoking status: Never Passive exposure: Never Smokeless tobacco: Never Substance Use Topics Alcohol use: Not Currently Drug use: Not Currently MEDICATIONS: Current Outpatient Medications Medication Sig opium tincture 10 mg/mL (morphine) Take 0.3 mL by mouth every 4 hours as needed for up to 30 days. Take by mouth as directed. loperamide (IMODIUM) 2 mg cap(s) Take 2 capsules by mouth before meals and at bedtime. diphenoxylate-atropine (LOMOTIL) 2.5-0.025 mg per tablet Take 2 tablets by mouth before meals and at bedtime for 90 days. psyllium husk (METAMUCIL) 0.4 gram cap Take 2 capsules by mouth three times a day. enoxaparin (LOVENOX) 80 mg/0.8 mL Inject 0.55 mL subcutaneously once daily. Inject entire contents of one(1) syringe ondansetron orally disintegrating (ZOFRAN ODT) 4 mg disintegrating tablet Take 1 tablet by mouth every 8 hours as needed for nausea/vomiting (first line). cholestyramine (QUESTRAN) 4 gram packet Take 1 Packet by mouth two times a day with meals. promethazine (PHENERGAN) 25 mg tablet Take 1 tablet by mouth every 6 hours as needed for nausea/vomiting (second line). acetaminophen (TYLENOL) 500 mg tablet Take 2 tablets by mouth every 6 hours as needed (mild, moderate pain). propranolol (INDERAL) 10 mg tablet Take 10 mg by mouth once daily. As needed for panic attacks amitriptyline (ELAVIL) 25 mg tablet Take 25 mg by mouth daily at bedtime. dicyclomine (BENTYL) 10 mg capsule Take 10 mg by mouth three times a day. Lactobacillus acidophilus (PROBIOTIC ACIDOPHILUS ORAL) Take 1 capsule by mouth once daily Cholecalciferol, Vitamin D3, (VITAMIN D) 25 mcg (1,000 unit) cap Take 1,000 Units by mouth once daily. midodrine (PROAMATINE) 10 mg tablet Take 10 mg by mouth three times a day. hydrOXYzine HCl (ATARAX) 25 mg tablet Take 25 mg by mouth three times a day as needed for anxiety. citalopram (CELEXA) 40 mg tablet Take 40 mg by mouth once daily. pantoprazole DR (PROTONIX) 40 mg tablet Take 1 tablet by mouth once daily. No current facility-administered medications for this visit. ALLERGIES: Ibuprofen and Nsaids (Non-Steroidal Anti-Inflammatory Drug) PHYSICAL EXAM: Participation of a fellow, resident, medical student, or advanced practice provider student in performing the sensitive examination was discussed with the patient or authorized communications representative. The patient or authorized communications representative has agreed to proceed with the sensitive examination. VITAL SIGNS: LMP 08/19/2024 (Approximate) GENERAL: Well appearing, alert, in no acute distress, well-hydrated, well nourished. GENITOURINARY: Deferred POP-Q: Deferred Tests Reviewed: PVR: 76 mL via bladder US UA: Positive for: Blood trace IMPRESSION & PLAN: ASSESSMENT/PLAN: 1. Feeling of incomplete bladder emptying - ICD9: 788.21, ICD10: R39.14 (primary diagnosis) - URODYNAMICS - CYSTO.PANENDO 2. Mixed stress and urge urinary incontinence - ICD9: 788.33, ICD10: N39.46 - URODYNAMICS - CYSTO.PANENDO Gerri Momin, DO Urogynecology and Reconstructive Pelvic Surgery Fellow, PGY-7 Electronically signed STAFF NOTE: I have personally modified the HPI and performed a PE & a face to face diagnostic evaluation on this patient & discussed the above plan. Signed: Hiram Patel MD [facility] documented in this encounter [facility] 11-07-2024 Telephone encounter Note Images from the original note were not included. Follow up pf prior auth for Skyrizi. Patient is currently on site for appointments Called patient , phone was answered by Arthur. This nurse requested patient please have the labs drawn while here to allow prior auth submission with insurance. Arthur verbalized understanding . Gloria Hobbs LPN [facility] 11-07-2024 Miscellaneous Notes Images from the original note were not included. Follow up pf prior auth for Skyrizi. Patient is currently on site for appointments Called patient , phone was answered by Arthur. This nurse requested patient please have the labs drawn while here to allow prior auth submission with insurance. Arthur verbalized understanding . Gloria Hobbs LPN documented in this encounter [facility] 11-07-2024 Note [facility] 11-07-2024 Note [facility] 11-07-2024 History of Present illness Narrative ET/WOCN Nursing Consult Topic: ET/WOCN Consultation Note ET Outcome: Pt came to see the [facility] Natura durahesive with convex-it system. Pt has not ordered her ostomy supplies before this visit. Provided ordering supplier information/prescription. Provided 4 pouches/4 flanges. ET's Next Scheduled Visit: as needed. Stoma Type: End ileostomy Diameter:1 1/4 Location: RLQ Protrusion: Budded Mucosal condition and color: Red and moist Mucocutaneous junction Intact Peristomal Skin: Erythema Location of Skin Impairment: 6 o'clock Peristomal contour: Flat with shallow crease Supportive Tissue: Semisoft Character of output: large amount liquid, pt reported about 4L per day. Emptying frequency per day: multiple times per day Current pouching system: [place] New Image 2 1/4 convex flange, 1/[address] from 2-10 o'clock area, drainable pouch Current wearing time: 3-4 days Recommendations: Skin Care: stomahesive powder and No Sting Liquid Skin Barrier Pouching System: ConvaTec Prasad Fit Natura 1 3/4 durahesive with convex-it 1 1/4 precut opening flange, 1/[address] on the skin around stoma at 2-10 o'clock, drainable pouch. Suggested to use Yolette gelling for high output night if she does not have to measure output amount for the night. Suggested to use High Volume Output Pouch as needed. Wear Time: 3-4 days Midline Abdominal Incision: Healed scar Comment: n/a Time Increment: 1 hour BOBBY Sage RN CWOCN [facility] nursing pager [phone] (M-F 7a-4p, Sat, Sun, Holiday 7a-3p) [place] [address] Patient: Francine Hobson Patient Address: [address] [place] [address] Dr Anastasiya Garcia [facility] [address] Preferred Gender: female Date of : 1985 Type of Stoma: End Ileostomy Diagnosis: Crohn's K50.90 OSTOMY SUPPLY ORDER FORM Pouch: ConvaTec: Natura + 1 3/4 drainable pouch # [id number] 30 day use - 2 Boxes (20 pouches) Wafer: ConvaTec: Prasad-Fit Natura Convex-It precut 1 1/4 Durahesive # [id number] 30 day use - 2 Boxes( 20 flanges) Adhesive Removers: ConvaTec Esenta Wipes #[id number] 30 day use - 1 Box Moldable Ring: [place] CeraRing Regular # [id number] 30 day use - 1 Box Powder: ConvaTec Stomahesive # [id number] 30 day use - 1 Bottle Skin Sealant: 3M No Sting, 30/Box # 3344 30 day use - 1 Box Misc. Accessories: ConvaTec Diamonds #[id number] 30 day use - 1 Box as needed Option for pouch: High Volume Output Pouch - ConvaTec Natura + 1 3/4 high output pouch # [id number] 30 day use - as needed. Refills: 11 Attending Physician: Dr. Rousseau: Office [phone] For immediate authorization, please contact the physician s office. [facility] Nurse: BOBBY Lyons, CWOCN Note: SIGNATURE: Gabriel Sheriff RN PATIENT NAME: Francine Hobson DATE: November 07, 2024 TIME: 9:07 AM CONTACT #: [phone] documented in this encounter [facility] 11-07-2024 Note [facility] 11-03-2024 History of Present illness Narrative IBD Medication Consult [facility] [place] Patient consents to pharmacy consult agreement. The initial consult was conducted virtually with the patient where the consult agreement was explained. The patient may decline or cancel the agreement at any time. After consideration, the patient consented to the pharmacy consult agreement and agreed to allow medications be collaboratively managed by a pharmacist. Patient Name: Francine Hobson IBD Provider: Dr. Kkio Piper November 03, 2024 Reason for consult: education, coordination, health maintenance review, and reconciliation Met with Francine today. She reports: - has fear of needles, cannot do self-injections - haven't started opium tincture, rest of med list is up to date - experiencing abdominal pain right above stoma going onto day 8 now - started after playing basketball. Was given muscle relaxants but not helping; ED wasn't able to do CT scan. Pain is not worsening, just staying steady - currently on enoxaparin injections - boyfriend, nurse, neighbor helps with injection - gets labs at [place] but prefers [facility] if possible. Wasn't able to get labs when last here bc was told she needs to have labs drawn from [facility] by RN at cancer center. Will plan to get labs completed November 07 Pt reported Med Rec: - Herbals/Vitamins/Supplements: probiotics - NKDA; NSAIDS listed given contraindications with CD CLINICAL SYMPTOMS Frequency of emptying ba-18 (improved compared to prior but still frequent) Fullness of bag when emptied: completely full (3-4 L) Consistency: liquid Blood: no Rectum: yes Frequency of changing bag: every 2 days Any skin issues around stoma site: no Abnormal drainage around stoma: no Abdominal pain: yes (muscle vs. Crohn's-related) Abdominal distention: yes Nausea/vomiting: yes takes zofran as needed Weight loss over last 3 months: no (124 lbs last week) SOCIAL HISTORY Tobacco use: no EtOH: No PERTINENT PMH FOR BIOLOGICS/SMALL MOLECULES Personal history of: VTE: Yes, line-related blood clots (on enoxaparin) Cardiac: No Renal dysfunction: No Hepatic dysfunction: No Autoimmune/Demyelinating disease (MS, GBS): No Malignancy: No Family history of: Malignancy: Yes, mother (bladder) PAST MEDICAL HISTORY Diagnosis Date Crohn disease (HCC) PAST SURGICAL HISTORY Procedure Laterality Date BOWEL RESECTION HX PICC LINE INSERT/CONSULT 08/21/2024 Current Outpatient Medications Medication Sig Dispense Refill opium tincture 10 mg/mL (morphine) Take 0.3 mL by mouth every 4 hours as needed for up to 30 days. Take by mouth as directed. 54 mL 0 loperamide (IMODIUM) 2 mg cap(s) Take 2 capsules by mouth before meals and at bedtime. 240 capsule 2 diphenoxylate-atropine (LOMOTIL) 2.5-0.025 mg per tablet Take 2 tablets by mouth before meals and at bedtime for 90 days. 240 tablet 2 psyllium husk (METAMUCIL) 0.4 gram cap Take 2 capsules by mouth three times a day. 90 capsule 0 enoxaparin (LOVENOX) 80 mg/0.8 mL Inject 0.55 mL subcutaneously once daily. Inject entire contents of one(1) syringe 24 mL 1 ondansetron orally disintegrating (ZOFRAN ODT) 4 mg disintegrating tablet Take 1 tablet by mouth every 8 hours as needed for nausea/vomiting (first line). 30 tablet 0 cholestyramine (QUESTRAN) 4 gram packet Take 1 Packet by mouth two times a day with meals. [address] (PROTONIX) 40 mg tablet Take 1 tablet by mouth once daily. 30 tablet 2 promethazine (PHENERGAN) 25 mg tablet Take 1 tablet by mouth every 6 hours as needed for nausea/vomiting (second line). 30 tablet 0 acetaminophen (TYLENOL) 500 mg tablet Take 2 tablets by mouth every 6 hours as needed (mild, moderate pain). (Patient not taking: Reported on 09/28/2024) 30 tablet 0 propranolol (INDERAL) 10 mg tablet Take 10 mg by mouth once daily. As needed for panic attacks amitriptyline (ELAVIL) 25 mg tablet Take 25 mg by mouth daily at bedtime. (Patient not taking: Reported on 09/18/2024) dicyclomine (BENTYL) 10 mg capsule Take 10 mg by mouth three times a day. (Patient not taking: Reported on 09/28/2024) Lactobacillus acidophilus (PROBIOTIC ACIDOPHILUS ORAL) Take 1 capsule by mouth once daily Cholecalciferol, Vitamin D3, (VITAMIN D) 25 mcg (1,000 unit) cap Take 1,000 Units by mouth once daily. midodrine (PROAMATINE) 10 mg tablet Take 10 mg by mouth three times a day. hydrOXYzine HCl (ATARAX) 25 mg tablet Take 25 mg by mouth three times a day as needed for anxiety. citalopram (CELEXA) 40 mg tablet Take 40 mg by mouth once daily. No current facility-administered medications for this visit. ALLERGIES Allergen Reactions Ibuprofen Other: See Comments Nsaids (Non-Steroid* Other: See Comments FAMILY HISTORY No family history on file. PERTINENT VITALS AND LABS Weight/BMI: Wt: 54.9 kg (121 lb) BMI: 19.53 kg/(m^2) TB: No results found for: TBGNIL , TBGINT , TBG1AG , TBG2AG , TBGRES , TBMITN TPMT: No results found for: TPMTACT Calprotectin stool/inflammation: No results found for: CALPTN CALPROTECTIN, FECAL QUANTITATIVE Date Value Ref Range Status 07/31/2024 464 (H) <50 ug/g Final CRP Date Value Ref Range Status 09/04/2024 2.0 (H) <0.9 mg/dL Final CBC: WBC (k/uL) Date Value 10/28/2024 10.71 Hemoglobin (g/dL) Date Value 10/28/2024 12.1 Hematocrit (%) Date Value 10/28/2024 36.7 MCV (fL) Date Value 10/28/2024 88.2 Platelet Count (k/uL) Date Value 10/28/2024 247 Lymphocytes % (%) Date Value 10/28/2024 21.9 RENAL/HEPATIC: BUN (mg/dL) Date Value 10/28/2024 23 (H) Creatinine (mg/dL) Date Value 10/28/2024 0.51 (L) Albumin (g/dL) Date Value 10/28/2024 4.1 Bilirubin, Total (mg/dL) Date Value 10/28/2024 0.2 Bilirubin, Direct (mg/dL) Date Value 09/04/2024 0.1 AST (U/L) Date Value 10/28/2024 22 ALT (U/L) Date Value 10/28/2024 29 VITAMIN B12 & D25 No results found for: B12 Vitamin D 25 Hydroxy (ng/mL) Date Value 08/05/2024 32.6 LIPID PANEL: Triglyceride (mg/dL) Date Value 09/05/2024 85 MEDICATION LEVELS Adalimumab: No results found for: ADNEAB , EERADA , ADAACT Infliximab: No results found for: IFXA , IFXT , EERIFX No components found for: INFLIXIMAB TOTAL DRUG LEVEL , INFLIXIMAB TOTAL ANTI-DRUG ANTIBODY LEVEL PULL No results found for: IFXTDM Thiopurine metabolites: No results found for: 6TG No results found for: 6MMP HEALTH MAINTENANCE - declines due to fear of needles Type Date Received Up-to-date Additional notes/comments Dosing COVID-19 No Candidate for updated COVID vaccine Updated COVID vaccine Respiratory syncytial virus (RSV) NA NA One time dose of Arexvy or Abrysvo Pneumococcal Pneumonia PCV13: PPSV23: PCV20: No Candidate for PCV20 One time dose of Uvraglo14 Hepatitis A ? No results found for: HEPAIGG Check Hepatitis A titer Two doses given at months 0 and 6 OR Twinrix (combination hep A and B vaccine): three doses given at months 0, 1, and 6 - recommend to check to see if covered by insurance Hepatitis B ? No results found for: HEPBCOTOL No results found for: HBSAG No results found for: HEPSABQ Check Hepatitis B titer Heplisav-B: Two doses given at months 0 and 1 OR Engerix-B, Recombivax-HB: Three doses administered at months 0, 1, and 6 OR Twinrix (combination hep A and B vaccine): three doses given at months 0, 1, and 6 - recommend to check to see if covered by insurance Influenza No Candidate for Counseled to avoid live intranasal formulation Obtain yearly AVOID nasal formulation as it is a live vaccine Zoster recombinant (RZV) No Candidate for Shingrix Varicella titer: No results found for: VZVG Shingrix: two doses given at months 0 and 2 Note: check with your pharmacy to see if this is covered by insurance Tetanus, diphtheria, pertussis (Tdap or Td) No Candidate for One dose Tdap then Td booster every 10 years HPV Females < 45 years old and males < 26 years old; 2 dose series if <15 years old No Candidate for if covered by insurance Gardasil: three doses given at months 0, 2, and 6 Note: check with your pharmacy and insurance to see if this is covered *The above vaccines are inactivated (or non-live). Live vaccines should be avoided while on IBD biologic or small molecule treatments. Up-to-date with PAP smear (annually or Q2 years if HPV negative): Need to assess at next visit Up-to-date with skin check: NA Up-to-date with DEXA scan (low BMI, post-menopausal, steroids >3 months, FHx of osteoporosis, smoking: baseline and repeat Q5 years if initial screen is normal): NA ASSESSMENT/PLAN Francine Hobson is a 39 year old White female with Crohn's disease [K50.90], diagnosed in 2007. Previously treated with Liadla for 1-2 years (no response), then AZA only. Developed intra-abdominal abscess + SBO and underwent ileocecal resection in 2013. Was on AZA post op and then started Humira in 2014 (stopped 2 years ago due to not wanting injections). Was put on Rinvoq 2022 but was not compliant. Underwent CT 01/2024 showed partial small bowel obstruction. 04/2024 Had a recurrent partial SBO and was admitted at [facility]. CT revealed lower abdominal and pelvic abscess, possible fistula versus narrowing in sigmoid colon. She had aspiration of abscess at [facility] by IR. Was admitted at [facility] 07/2024 and transferred to [facility]. Was hospitalized at [facility] from 08/17/2024 thru 08/30/2024 for Crohn's colitis w/ intestinal obstruction. Underwent ex. lap excision of previous ileocolic anastomosis, and end ileostomy on 08/18/2024. Went to ED on 09/02/24 for concerns of possible occulusion of PICC line and was diagnosed with acute provoked DVT in LUE. Seen again in ED in October 2024 for concerns of potential line infection, but thought to be granulation tissue related than cellulitis. Given active inflammation, plan to initiate risankizumab. Medication Management - Initiate risankizumab 600 mg IV at week 0, 4, 8, then starting week 12, 360 mg SQ every 8 weeks. Counseled on dose, frequency, route of administration, and adverse effects. Need baseline labs - orders placed to be completed 11/07/24. Counseled on logistics and next steps. Therapy plan entered. - Obtain baseline CT abd/pel prior as scheduled on 11/07/24. - Updated med list in [facility] Health Maintenance - Candidate for several vaccines but has concerns about needles. - Recommend the following health maintenance appts: none -- currently up to date Next PharmD visit: Future Appointments Date Time Provider Department Center 11/07/2024 8:15 AM Therapy, Stoma [facility] Main - A Bld 11/07/2024 9:30 AM Hiram Patel MD [facility] Main - Q Bld 11/07/2024 10:40 AM BONE DENSITY MAIN A21 1 [facility] Main - A Bld 11/07/2024 12:[address] PREP QB [facility] Main - Q Bld 11/07/2024 1:[address] 2 MAIN QB (I-STAT) [facility] Main - Q Bld 12/08/2024 11:00 AM Grace Monterroso RPh [facility] Main - A Bld 12/25/2024 11:15 AM Fartun Carpio MD [facility] Main - A Bld 12/25/2024 2:30 PM Elsy Rousseau DO [facility] Main - A Bld 12/25/2024 3:00 PM Therapy, Stoma [facility] Main - A Bld 12/29/2024 1:15 PM Mariam Dupont PA-C [facility] Main - J Bld 12/29/2024 2:30 PM Mariam Dupont PA-C [facility] Main - J Bld Francine Hobson endorses understanding to above. Denies other questions and concerns and is aware to contact us in future if needed. Grace Monterroso, PharmD, BCACP, MS IBD Clinical Pharmacist Interventions made: medication education, medication reconciliation, medication coordination, pre-treatment assessment, health maintenance need assessment, and medication management Time spent (mins): 35 documented in this encounter [facility] 11-03-2024 Note [facility] 10-25-2024 Note Addended by: OBDULIA DALTON on: 10/25/2024 12:52 PM Modules accepted: Orders [facility] 10-25-2024 Miscellaneous Notes Addended by: OBDULIA TEJEDA on: 10/25/2024 12:52 PM Modules accepted: Orders Patient called back. She reports: -2-4L/ day -mainly liquidy - can look like ground up food with liquid when she eats - can be baby food like - 2 tabs of imodium and Lomotil 30 minutes before meals and bedtime - can take up to 5 times a day - cholestyramine caused her to choke/ cough - tried it for a week - got Metamucil drinking it and noticing a significant difference. Was doing 3x a day. Now 1-2 x a day - utilizing 3-4 drip drop a day - propel - liquid IV sometimes -TPN Bowel regimen recommendations: Lomotil 2 pills QID Imodium 2 pills QID Metamucil TID Tincture of Opium 0.3 mL every 4 hours as needed for high output ( can increase to 0.6 mL depending on response) To send a [employer]The[employer] message or contact the office later this week or early next week to check on bowel regimen with output. Advised that Dr. Rousseau wants her stoma for at least 6 months prior to surgery. Appointment with Dr. Rousseau in December, can be sooner if needed. Obdulia Tejeda PA-C Attempted to call patient to check on stoma output and bowel regimen. No answer. Unable to leave a voicemail. Three Ringhart message sent yesterday to check in. Obdulia Tejeda PA-C documented in this encounter [facility] 10-25-2024 Telephone encounter Note Patient called back. She reports: -2-4L/ day -mainly liquidy - can look like ground up food with liquid when she eats - can be baby food like - 2 tabs of imodium and Lomotil 30 minutes before meals and bedtime - can take up to 5 times a day - cholestyramine caused her to choke/ cough - tried it for a week - got Metamucil drinking it and noticing a significant difference. Was doing 3x a day. Now 1-2 x a day - utilizing 3-4 drip drop a day - propel - liquid IV sometimes -TPN Bowel regimen recommendations: Lomotil 2 pills QID Imodium 2 pills QID Metamucil TID Tincture of Opium 0.3 mL every 4 hours as needed for high output ( can increase to 0.6 mL depending on response) To send a mySBXt message or contact the office later this week or early next week to check on bowel regimen with output. Advised that Dr. Rousseau wants her stoma for at least 6 months prior to surgery. Appointment with Dr. Rousseau in December, can be sooner if needed. Obdulia Tejeda PA-C [facility] 10-25-2024 Telephone encounter Note Attempted to call patient to check on stoma output and bowel regimen. No answer. Unable to leave a voicemail. [employer] message sent yesterday to check in. Obdulia Tejeda PA-C [facility] 10-24-2024 Telephone encounter Note Home Nutrition Support Service Labs received mostly stable with slightly elevated phos. No I/Os received. Note that potential for surgery (ostomy reversal) in February. Call to patient to check in - she says she keeps trying to send I/Os but they are being sent to her outbox. Reviewed I/Os - pt did miss PN 1 night last week d/t not feeling well. Slept throughout the day. Did report low grade fevers but no other s/s CRBSI. No recurrent fevers. She has only missed PN one other time since starting with HPN. She is gaining weight towards goal (130-135lb) but slowly. Weight today was 122lb. Her UOP is consistently low. On the day she missed PN - her UOP was ~650mL but normal is around 900mL. She does c/o thirst. Her stoma output ranges from 2500-4000mL per day with more than half of the week being 3000-4000mL/day. She is taking Imodium and Lomotil as ordered with an additional dose at times (sometimes 5x per day). She does not think this is slowing her output. CORS added cholestyramine BID with meals and she took for about 1 week with no improvement and has a hard time drinking it. She has added metamucil and also notes this is not helping. Note suggestion to consider adding TOO - pt states she just has not yet followed up with CORS - will send update to CORS team that output remains high. Reviewed PO intake with patient and she is eating several small meals throughout the day that are high protein high starch. No added sugars. Attempted to review beverages with patient but our conversation was already 30 minutes long and she needed to call back as she was going to another appt. We did discuss that PN volume is quite high at 3.8L and we can provide max of 4L volume in PN. She feels to tired to supervisor special education to PRN IVF throughout the day. We did discuss increasing kcal as well. Biggest issue seems to be her volume of stoma output. Of note, pt did state that she is flushing through ethanol lock and she feels chest tightness when doing so. She is flushing through quickly (was not provided with any instructions as ethanol lock was added outpatient). She states she does not feel qualified to withdraw the lock from catheter and will try to flush through slower and re-assess symptoms. She also states that her red lumen does not seem to be working as efficiently as the white lumen. She uses red lumen for blood draws only and per RN, seems to be working fine. Pt states it does feel like there is something 'stuck' in red lumen but it will eventually flush. Pt states that RN had concerns for bulging' or 'winding' of the tunnel but has not contacted anyone about it because there is no associated pain and is withdrawing/flushing okay. Pt confirmed that cuff is not exposed Rec: -will add above update to [facility] and forward to Dr Mike, NST RNs and CORS as updates -defer line concerns to NST RNs to address -update to CORS re: output. -will await pt call back with plan to review ORS and increase in PN volume/kcal. -pt needs f/u appt scheduled - forwarded update to clerical team to schedule Jaimie Carrasquillo RD, LD, MFN, CNSC [facility] Work Phone: 10-24-2024 Miscellaneous Notes Home Nutrition Support Service Labs received mostly stable with slightly elevated phos. No I/Os received. Note that potential for surgery (ostomy reversal) in February. Call to patient to check in - she says she keeps trying to send I/Os but they are being sent to her outbox. Reviewed I/Os - pt did miss PN 1 night last week d/t not feeling well. Slept throughout the day. Did report low grade fevers but no other s/s CRBSI. No recurrent fevers. She has only missed PN one other time since starting with HPN. She is gaining weight towards goal (130-135lb) but slowly. Weight today was 122lb. Her UOP is consistently low. On the day she missed PN - her UOP was ~650mL but normal is around 900mL. She does c/o thirst. Her stoma output ranges from 2500-4000mL per day with more than half of the week being 3000-4000mL/day. She is taking Imodium and Lomotil as ordered with an additional dose at times (sometimes 5x per day). She does not think this is slowing her output. CORS added cholestyramine BID with meals and she took for about 1 week with no improvement and has a hard time drinking it. She has added metamucil and also notes this is not helping. Note suggestion to consider adding TOO - pt states she just has not yet followed up with CORS - will send update to CORS team that output remains high. Reviewed PO intake with patient and she is eating several small meals throughout the day that are high protein high starch. No added sugars. Attempted to review beverages with patient but our conversation was already 30 minutes long and she needed to call back as she was going to another appt. We did discuss that PN volume is quite high at 3.8L and we can provide max of 4L volume in PN. She feels to tired to supervisor special education to PRN IVF throughout the day. We did discuss increasing kcal as well. Biggest issue seems to be her volume of stoma output. Of note, pt did state that she is flushing through ethanol lock and she feels chest tightness when doing so. She is flushing through quickly (was not provided with any instructions as ethanol lock was added outpatient). She states she does not feel qualified to withdraw the lock from catheter and will try to flush through slower and re-assess symptoms. She also states that her red lumen does not seem to be working as efficiently as the white lumen. She uses red lumen for blood draws only and per RN, seems to be working fine. Pt states it does feel like there is something 'stuck' in red lumen but it will eventually flush. Pt states that RN had concerns for bulging' or 'winding' of the tunnel but has not contacted anyone about it because there is no associated pain and is withdrawing/flushing okay. Pt confirmed that cuff is not exposed Rec: -will add above update to [facility] and forward to Dr Mike, NST RNs and CORS as updates -defer line concerns to NST RNs to address -update to CORS re: output. -will await pt call back with plan to review ORS and increase in PN volume/kcal. -pt needs f/u appt scheduled - forwarded update to clerical team to schedule Jaimie Carrasquillo RD, LD, MFN, CNSC documented in this encounter [facility] 10-20-2024 Telephone encounter Note WOC nursing returned patient message regarding needing to order supplies. Left Message: No, spoke with pt Information/Recommendations provided regarding patient tried new system and wants to order more but was informed to get correct fit she will have to visit the outpatient clinic. Time spent: 15 minutes Nathanael Patel RN [facility] 10-20-2024 Miscellaneous Notes WO nursing returned patient message regarding needing to order supplies. Left Message: No, spoke with pt Information/Recommendations provided regarding patient tried new system and wants to order more but was informed to get correct fit she will have to visit the outpatient clinic. Time spent: 15 minutes Nathanael Patel RN Pt would like some help on how to order more supplies. Call back [phone] documented in this encounter [facility] 10-20-2024 Telephone encounter Note Pt would like some help on how to order more supplies. Call back [phone] [facility] 09-28-2024 Instructions Aracely Lentz PA-C - 09/28/2024 4:45 PM EDT - continue Imodium and Lomotil - Check labs - Schedule CT Abdomen - Schedule bone density scan - Schedule appointment with dermatology - schedule appointment with IBD psychology - Schedule appointment with Nuno Cardenas regarding medical therapy such as Skyrizi, Stelara, Remicade - Follow up in four weeks with Dr. Hoover (can be virtual) to discuss what medication to move forward with documented in this encounter [facility] 09-28-2024 Note [facility] 09-28-2024 History of Present illness Narrative NEW PATIENT SUBJECTIVE 39 year old female with Crohn's disease to establish care HISTORY: Patient is a 39 year old female with CD dx 2007. Was on Liadla for 1-2 years (no response), then on AZA only. Developed intra-abdominal abscess + SBO and underwent ileocecal resection in 2013. Was on AZA post op and then started Humira in 2014 (stopped 2 years ago due to patient not wanting injections). Was put on Rinvoq 2022 but was not compliant with it. Ran out of it 02/2024. Underwent CT 01/2024 showed partial small bowel obstruction. 04/2024 Had a recurrent partial SBO and was admitted at [facility]. CT revealed lower abdominal and pelvic abscess, possible fistula versus narrowing in sigmoid colon. Her CT on 05/02/24 was concerning for multiloculated abdominal/pelvic abscesses. She had aspiration of abscess at [facility] by IR. Was admitted at [facility] 07/2024 for 20 days and was hospitalized [facility] from 08/17/2024 thru 08/30/2024 for Crohn's colitis w/ intestinal obstruction. Underwent ex. Lap excision of previous ileocolic anastomosis, and end ileostomy on 08/18/2024. Went to ED on 09/02/24 for concerns of possible occulusion of PICC line and was diagnosed with acute provoked DVT in LUE. TPN restarted w/o issues and discharged on 09/06/2024. Today she states she has an increased appetite and is having a high output. Is taking 2 imodium + 2 lomotil before each meal and bedtime. Has had two episodes of abdominal pain at night but only after eating red meat. Currently on TPN. Finished steroids four days ago. Current Clinical Symptoms w/ Ostomy: Frequency of emptying ba+ Fullness of bag when emptied: completely full Consistency: liquid Blood: no Rectum: yes Frequency of changing bag: every 2 days Any skin issues around stoma site: yes but have resolved Abnormal drainage around stoma: no Abdominal pain: as stated above Abdominal distention: yes Nausea/vomiting: yes takes zofran as needed Appetite/tolerating diet: yes Weight loss over last 3 months: no Denies EIMs Denies NSAIDs Denies smoking Denies ETOH Reviewed Items: CBC: WBC (k/uL) Date Value 09/04/2024 5.17 Hematocrit (%) Date Value 09/04/2024 28.3 (L) MCV (fL) Date Value 09/04/2024 88.7 Platelet Count (k/uL) Date Value 09/04/2024 427 (H) Lymphocytes % (%) Date Value 09/02/2024 16.0 Hepatic Function Panel: Albumin (g/dL) Date Value 09/06/2024 3.6 (L) Bilirubin, Total (mg/dL) Date Value 09/04/2024 0.2 Bilirubin, Direct (mg/dL) Date Value 09/04/2024 0.1 Alkaline Phosphatase (U/L) Date Value 09/04/2024 236 (H) AST (U/L) Date Value 09/04/2024 18 ALT (U/L) Date Value 09/04/2024 20 Protein, Total (g/dL) Date Value 09/04/2024 6.8 Current Outpatient Medications Medication Sig Dispense Refill cholestyramine (QUESTRAN) 4 gram packet Take 1 Packet by mouth two times a day with meals. 60 Packet 2 diphenoxylate-atropine (LOMOTIL) 2.5-0.025 mg per tablet Take 2 tablets by mouth before meals and at bedtime for 90 days. 240 tablet 2 enoxaparin (LOVENOX) 80 mg/0.8 mL Inject 0.7 mL subcutaneously every 24 hours. Please eject 0.1 mL of fluid from syringe into trash. Inject the remaining fluid into the subcutaneous tissue. [address] (PROTONIX) 40 mg tablet Take 1 tablet by mouth once daily. 30 tablet 2 ondansetron orally disintegrating (ZOFRAN ODT) 4 mg disintegrating tablet Take 1 tablet by mouth every 8 hours as needed for nausea/vomiting (first line). 30 tablet 0 promethazine (PHENERGAN) 25 mg tablet Take 1 tablet by mouth every 6 hours as needed for nausea/vomiting (second line). 30 tablet 0 propranolol (INDERAL) 10 mg tablet Take 10 mg by mouth once daily. As needed for panic attacks Lactobacillus acidophilus (PROBIOTIC ACIDOPHILUS ORAL) Take 1 capsule by mouth once daily Cholecalciferol, Vitamin D3, (VITAMIN D) 25 mcg (1,000 unit) cap Take 1,000 Units by mouth once daily. midodrine (PROAMATINE) 10 mg tablet Take 10 mg by mouth three times a day. hydrOXYzine HCl (ATARAX) 25 mg tablet Take 25 mg by mouth three times a day as needed for anxiety. citalopram (CELEXA) 40 mg tablet Take 40 mg by mouth once daily. apixaban (ELIQUIS) 5 mg tab(s) Take 2 tablets (10 mg) by mouth twice daily for 7 days. Then take 1 tablet (5 mg) by mouth twice daily for 23 days (Patient not taking: Reported on 09/28/2024) 74 tablet 0 calcium polycarbophil (FIBERCON) 625 mg tablet Take 1 tablet by mouth two times a day. (Patient not taking: Reported on 09/18/2024) 60 tablet 2 loperamide (IMODIUM) 2 mg cap(s) Take 2 capsules by mouth before meals and at bedtime. (Patient not taking: Reported on 09/28/2024) 240 capsule 2 acetaminophen (TYLENOL) 500 mg tablet Take 2 tablets by mouth every 6 hours as needed (mild, moderate pain). (Patient not taking: Reported on 09/28/2024) 30 tablet 0 gabapentin (NEURONTIN) 300 mg capsule Take 1 capsule by mouth three times a day for 30 days. (Patient not taking: Reported on 09/18/2024) 90 capsule 0 amitriptyline (ELAVIL) 25 mg tablet Take 25 mg by mouth daily at bedtime. (Patient not taking: Reported on 09/18/2024) dicyclomine (BENTYL) 10 mg capsule Take 10 mg by mouth three times a day. (Patient not taking: Reported on 09/28/2024) No current facility-administered medications for this visit. ALLERGIES Allergen Reactions Ibuprofen Other: See Comments Nsaids (Non-Steroid* Other: See Comments PHYSICAL EXAMINATION BP 139/90 Pulse 95 Temp (Src) 98.3 (Temporal) Ht 5' 6 (1.68m) Wt 121 lb (54.9kg) SpO2 97% LMP 08/19/2024 BMI 19.54 kg/(m^2). General Appearance: alert, oriented x 3, pleasant and in no acute distress Heart:regular rate and rhythm, no murmurs or gallops Lungs: clear & equal BL Abdomen: Not distended. Normal bowel sounds. Soft and non-tender. No masses or organomegaly. Ostomy bag on LLQ Skin: no rashes or lesions Assessment IMPRESSION (portions of this note have been copied from ... prior note and updated to reflect medical decision making today) Patient is a 39 year old female with history of Crohn's disease. Previously treated with Liadla for 1-2 years (no response), then on AZA only. Developed intra-abdominal abscess + SBO and underwent ileocecal resection in 2013. Was on AZA post op and then started Humira in 2014 (stopped 2 years ago due to patient not wanting injections). Was put on Rinvoq 2022 but was not compliant. Underwent CT 01/2024 showed partial small bowel obstruction. 04/2024 Had a recurrent partial SBO and was admitted at [facility]. CT revealed lower abdominal and pelvic abscess, possible fistula versus narrowing in sigmoid colon. She had aspiration of abscess at [facility] by IR. Was admitted at [facility] 07/2024 and transferred to [facility]. Was hospitalized at Main [facility] from 08/17/2024 thru 08/30/2024 for Crohn's colitis w/ intestinal obstruction. Underwent ex. Lap excision of previous ileocolic anastomosis, and end ileostomy on 08/18/2024. Went to ED on 09/02/24 for concerns of possible occulusion of PICC line and was diagnosed with acute provoked DVT in E. Currently states she is feeling much better and has an increased appetite. Has a high output. Is taking 2 imodium + 2 lomotil before each meal and bedtime. Has had two episodes of abdominal pain at night but only after eating red meat. Currently on TPN. Finished steroids four days ago. I reviewed the diagnosis of CD with the patient. Reviewed medical therapy options for CD including anti-TNF agents (infliximab), Vedolizumab, Anti-IL 23s (Ustekinumab, Risankizumab). Discussed the risks/benefits to each class as well as side effects including infection, increased risk of malignancy, injection/infusion reactions. Recommended that she see Nuno Cardenas to go over all options. Will plan to follow up in four weeks to decide on what medication to start. In the meantime will check labs and do a CT scan. Went over HM and put in consult for dermatology and DEXA scan. Patient agrees to the plan. PLAN - Check labs including TPMT level - Continue Imodium and Lomotil - Schedule CT abdomen - Schedule bone density scan - Consult to Dermatology, IBD psychology, and IBD pharm (will discuss with Nuno Cardenas about medical treatment options such as Skyrizi, Stelara, or Remicade - Follow up in four weeks with Dr. Hoover to discuss what medication to move forward with Aracely Lentz PA-C [facility] STAFF PHYSICIAN NOTE OF PERSONAL INVOLVEMENT IN CARE I have reviewed the consult note obtained and documented by the physician assistant director of plant operations and I personally participated in the price components. I have discussed the case and management of the patient's care. The following comments revise or confirm relevant price components of their note. IMPRESSION: Francine Hobson is a 39 year old female with a PMH of ileocolonic Crohn's disease, s/p ileocecal resection 2005 and intra-abdominal abscess, previously on Humira, self discontinued in 2014 (due to injection route), Rinvoq (self-discontinued in 2022), recent hospitalization with excision of previous ileocolic anastomosis, and end ileostomy on 08/18/2024, TPN, complicated by provoked DVT in JHONNYE (PICC line), who presents to establish care in the IBD clinic at [facility]. #1 Crohn's disease, ileocolonic, penetrating, diagnosed in 2005 #2 Status post ileocolonic resection x 2 (2005, 2024) with end ileostomy #3 TPN #4 DVT left upper extremity, provoked Overall, my assessment is that the patient is recovering well from recent surgical procedure a above. She is at high risk of disease recurrence without advanced medical therapy. Endorses diffuse abdominal tenderness. Denies fever, night sweat, chills. Regarding next steps in management of Crohn's disease, I recommend initiation of biologic therapy. We favor Skyrizi as next step. If not approved by insurance, infliximab (self-discontinued Humira in the past) would be next best option, particularly given IV route, which is preferred by patient. We will refer her to our IBD pharmacist for further discussion. CT abdomen prior is recommended. PLAN: - CT abdomen - Referral to IBD pharmacist. - Return visit in 4 weeks. SIGNATURE: Armand Piper MD, PhD DATE of SERVICE: September 29, 2024 TIME of SERVICE: 11:59 AM I spent a total of 45 minutes on the date of the service which included preparing to see the patient, [id number] patient care, completing clinical documentation, obtaining and/or reviewing separately obtained history, performing a medically appropriate examination, counseling and educating the patient/family/caregiver, and ordering medications, tests, or procedures. Armand Piper MD, PhD September 28, 2024 3:46 PM documented in this encounter [facility] 09-19-2024 Instructions Mariam Dupont PA-C - 09/19/2024 3:05 PM EDT Continue Lovneox 1mg/kg/dose (50 mg) sc q 12 hours Monitor for signs of bleeding Recommend patient transition to Lovenox 1.5mg/kg/dose (80mg) sc q day Monitor for signs of bleeding Duration of therapeutic anticoagulation is at least 3 months or as long as Reece catheter is in place Schedule virtual visit follow up in one month documented in this encounter [facility] 09-19-2024 History of Present illness Narrative Images from the original note were not included. [facility] [place] [facility] Department of Cardiovascular Medicine SECTION OF VASCULAR MEDICINE OUTPATIENT VISIT DATE September 19, 2024 OUTPATIENT VISIT TYPE ESTABLISHED Follow up regarding: right upper extremity DVT, clotted LUE PICC line Allergies: is allergic to ibuprofen and nsaids (non-steroidal anti-inflammatory drug). Medications: Current Outpatient Medications Medication Sig cholestyramine (QUESTRAN) 4 gram packet Take 1 Packet by mouth two times a day with meals. apixaban (ELIQUIS) 5 mg tab(s) Take 2 tablets (10 mg) by mouth twice daily for 7 days. Then take 1 tablet (5 mg) by mouth twice daily for 23 days calcium polycarbophil (FIBERCON) 625 mg tablet Take 1 tablet by mouth two times a day. (Patient not taking: Reported on 09/18/2024) diphenoxylate-atropine (LOMOTIL) 2.5-0.025 mg per tablet Take 2 tablets by mouth before meals and at bedtime for 90 days. enoxaparin (LOVENOX) 80 mg/0.8 mL Inject 0.7 mL subcutaneously every 24 hours. Please eject 0.1 mL of fluid from syringe into trash. Inject the remaining fluid into the subcutaneous tissue. loperamide (IMODIUM) 2 mg cap(s) Take 2 capsules by mouth before meals and at bedtime. pantoprazole DR (PROTONIX) 40 mg tablet Take 1 tablet by mouth once daily. ondansetron orally disintegrating (ZOFRAN ODT) 4 mg disintegrating tablet Take 1 tablet by mouth every 8 hours as needed for nausea/vomiting (first line). promethazine (PHENERGAN) 25 mg tablet Take 1 tablet by mouth every 6 hours as needed for nausea/vomiting (second line). acetaminophen (TYLENOL) 500 mg tablet Take 2 tablets by mouth every 6 hours as needed (mild, moderate pain). gabapentin (NEURONTIN) 300 mg capsule Take 1 capsule by mouth three times a day for 30 days. (Patient not taking: Reported on 09/18/2024) propranolol (INDERAL) 10 mg tablet Take 10 mg by mouth once daily. As needed for panic attacks amitriptyline (ELAVIL) 25 mg tablet Take 25 mg by mouth daily at bedtime. (Patient not taking: Reported on 09/18/2024) dicyclomine (BENTYL) 10 mg capsule Take 10 mg by mouth three times a day. Lactobacillus acidophilus (PROBIOTIC ACIDOPHILUS ORAL) Take 1 capsule by mouth once daily Cholecalciferol, Vitamin D3, (VITAMIN D) 25 mcg (1,000 unit) cap Take 1,000 Units by mouth once daily. midodrine (PROAMATINE) 10 mg tablet Take 10 mg by mouth three times a day. (Patient not taking: Reported on 09/18/2024) hydrOXYzine HCl (ATARAX) 25 mg tablet Take 25 mg by mouth three times a day as needed for anxiety. citalopram (CELEXA) 40 mg tablet Take 40 mg by mouth once daily. No current facility-administered medications for this visit. Review of history: Hospital admit from 08/17/2024 to 08/30/2024, 09/02/2024 to 09/06/2024 39 year old female with past medical history of Crohn's ileocolitis status post ileocecal resection 2008, recurrent partial small bowel obstruction who presented with complaints of abdominal pain along with nausea and vomiting. She did have a recent hospital admits from 07/19-07/30/2024 and then 07/30-08/08/2024 for management of a partial small bowl obstruction and multiple abscesses. CT scan revealed fibrotic strictured segment of the neoterminal ileum with proximal dilation of the small bowel. Patient is now status post exploratory laparotomy, excision of previous ileocolic anastomosis and end ileostomy on 08/18/2024. Patient was found to have a right upper extremity brachial DVT on 08/21/2024. Patient has been off an on prophylactic Lovenox injections since admit due to patient having difficulty with needles. Repeat imaging done on 08/28/2024 revealed extension of the existing clot and presence of a new axillary vein thrombosis. Patient was increased to weight based Lovenox SC q 12 hours. She has a high output ostomy and is on TPN for now. Patient was readmitted for clotted LUE PICC line. While in the hospital at still patient had a PICC line in her RUE and developed an acute axillary DVT. This line was removed and one was placed in her LUE. IR was consulted and took her for a double lumen reece placement and removal of PICC line under general anesthesia on 09/05. Patient was inconsistent with Lovenox injections due to fear/ anxiety over injections. She was transitioned to Eliquis 5 mg q bid. Due to high ostomy output, patient started seeing pills in her ostomy bag. She started crushing the Eliiqus to take it. Subjective: Patient continues to have high ostomy output. She continues to crush the Eliquis and take it. She is on TPN but is eating regularly. Patient has gained some weight since hospital discharge. She does not report issues with easy bruising or bleeding. Objective: BP 142/90 Pulse 87 Wt 52 kg (114 lb 10.2 oz) LMP 08/19/2024 (Approximate) SpO2 100% BMI 18.50 kg/m General: Alert and oriented, in no acute distress, pleasant mood. Skin: Healthy, intact, no ulcerations, no rashes. HEENT: neck supple Cardiovascular: Heart has a regular rate and rhythm without murmur. Respiratory: Lungs clear auscultation bilaterally. Gastrointestinal: Ostomy noted, Abdomen soft and nontender. Musculoskeletal: No cyanosis or clubbing, muscle wasting noted Peripheral vascular: Reece noted in the right chest. Dorsalis pedis and posterior tibial pulses 2+/2 bilaterally. Feet and toes warm pink and well perfused. Lower extremities: No edema noted in the upper or lower extremities Imaging US DVT Upper Left 09/19/2024: IMPRESSION Technically difficult exam due to bandages and lines. Compared to prior study of 08/28/2024, unable to visualize known deep vein thrombosis in the right subclavian and axillary veins due to bancages and lines. Similar findings noted in the left side; left side compared to [place] [facility] 09/01/2024. RIGHT SIDE - DEEP VEINS Unable to visualize the subclavian vein and axillary vein due to bandages and IV lines. High bifurcation noted of the brachial vein. Only segments visualized of the internal jugular vein. LEFT SIDE - DEEP VEINS Negative for propagation of known deep vein thrombosis in the subclavian vein and axillary vein. Mobile tail of thrombus noted in the subclavian vein. US DVT Upper Left 09/01/2024: IMPRESSION: Left cephalic vein not visualized. Positive study for acute DVT in the left upper extremity. Nonocclusive thrombus associated with indwelling left upper extremity PICC catheter at the left subclavian vein. Negative study for superficial thrombophlebitis in the imaged segments of the left upper extremity. US Arm Vein DVT [facility] 08/28/2024: IMPRESSION Naomi Cortes PA-C was notified with results at 10:38 AM. Compared to prior study of 08/21/2024, there is propagation of thrombus into the mid brachial vein and the axillary vein today. RIGHT SIDE - DEEP VEINS Acute deep vein thrombosis in the axillary vein. Positive for propagation of the known deep vein thrombosis in the brachial vein from proximal to mid. High bifurcation noted of the brachial vein. LEFT SIDE - DEEP VEINS Spontaneous and respirophasic flow noted in the subclavian vein. IV line noted within the subclavian vein. US Arm Vein DVT [facility] 08/21/2024: IMPRESSION Bernadette Hammond APRN CNP was notified with results at 10:55 AM. RIGHT SIDE - DEEP VEINS Clinical correlation to prior indwelling line is required. Repeat imaging in 5-7 days is recommended. Focal, non-occlusive filling defect consistent with fibrin sheath versus thrombus is visualized in the brachial vein at proximal. LEFT SIDE - DEEP VEINS Spontaneous and respirophasic flow noted in the subclavian vein. CT Enterography w ivcon 07/30/2024: IMPRESSION: STRICTURE WITH IMAGING FINDINGS OF ACTIVE INFLAMMATION PENETRATING DISEASE: ABSENT Suspected at least partial small bowel obstruction with transition point in the left lower quadrant starting at the level of approximately 30 cm of active inflammatory changes with multifocal stricturing in the neoterminal ileum. Short segment area of active inflammation in the transverse colon without upstream dilation. 1.5 cm right buttock superficial cystic lesion, most likely a small abscess or epidermal inclusion cyst. Assessment: 39 year old female with past medical history of Crohn's ileocolitis status post ileocecal resection 2008, recurrent partial small bowel obstruction who presented with complaints of abdominal pain along with nausea and vomiting. She did have a recent hospital admits from 07/19-07/30/2024 and then 07/30-08/08/2024 for management of a partial small bowl obstruction and multiple abscesses. CT scan revealed fibrotic strictured segment of the neoterminal ileum with proximal dilation of the small bowel. Patient is now status post exploratory laparotomy, excision of previous ileocolic anastomosis and end ileostomy on 08/18/2024. Patient was found to have a right upper extremity brachial DVT on 08/21/2024. Patient has been off an on prophylactic Lovenox injections since admit due to patient having difficulty with needles. Repeat imaging done on 08/28/2024 revealed extension of the existing clot and presence of a new axillary vein thrombosis. Patient was increased to weight based Lovenox SC q 12 hours. She has a high output ostomy and is on TPN for now. Patient was readmitted for clotted LUE PICC line. While in the hospital at still patient had a PICC line in her RUE and developed an acute axillary DVT. This line was removed and one was placed in her LUE. IR was consulted and took her for a double lumen reece placement and removal of PICC line under general anesthesia on 09/05. Patient was inconsistent with Lovenox injections due to fear/ anxiety over injections. She was transitioned to Eliquis 5 mg q bid. Due to high ostomy output, patient started seeing pills in her ostomy bag. She started crushing the Eliiqus to take it. -US DVT Upper Left 09/19/2024: Technically difficult exam due to bandages and lines. Compared to prior study of 08/28/2024, unable to visualize known deep vein thrombosis in the right subclavian and axillary veins due to bancages and lines. Similar findings noted in the left side; left side compared to [place] [facility] 09/01/2024. plan: Continue Lovneox 1mg/kg/dose (50 mg) sc q 12 hours Monitor for signs of bleeding When primary team is ready, please transition patient to Lovenox 1.5mg/kg/dose (70mg) sc q day CBC/Platelets, creatinine daily in the mornings Duration of therapeutic anticoagulation is at least 3 months Ordered virtual visit follow up with me on 09/19/2024 at 2:30pm. She should have a repeat bilateral upper extremity DVT scan prior to visit. Mariam Dupont PA-C September 19, 2024 4:12 PM documented in this encounter [facility] 09-19-2024 Note [facility] 09-19-2024 Note [facility] 09-19-2024 History of Present illness Narrative After RD and GEOPH[employer]RAFTER visit, met with pt and her to see if had any questions or concerns for TPN administration or catheter. Pt said though has not been home long, is doing ok, had no concerns;. Now has reece catheter, reviewed how often to flush each lumen of catheter with normal saline and to make sure keeps each lumen clamped when not in use. Pt had catheter taped up and secured, did provide some clips and demonstrated how to use as option as well. Gave few extra home self monitoring sheets to use. Darlene Solis, RN [facility] STAFF PHYSICIAN NOTE OF PERSONAL INVOLVEMENT IN CARE I have reviewed the progress note obtained and documented by the Nutrition Clinician Abdirahman Christie RD. I have explored in detail with the patient the HPI and ROS, and they are summarized below. I have discussed the case and management of the patient's care with the Nutrition Clinician. I agree with the recommendations as outlined by clinician above. I have reviewed available labs, and my exam and A/P are as follows: Francine Hobson is a 38 year old female who presents today at discharge clinic for follow up after recent inpatient hospitalization at [facility] from 08/17/2024 thru 08/30/2024 for Crohn's colitis in the setting of intestinal obstruction. TPN was continued following OR which occurred on 08/18/2024 (as noted below) . TPN initially started on 07/19/2024 at outside hospital. Admission Imaging with active inflammatory small bowel crohn's disease with luminal narrowing, distribution of active inflammatory disease, similar compared to 07/30/24 imaging with interval increased upstream dilation, suggesting progressive obstruction. Multifocal stricturing in the terminal ileum. On 08/18/24: Exploratory laparotomy, excision of previous ileocolic anastomosis, and end ileostomy. Post op with ABEL and bowel stoppers added. Loperamide 4 mg AC and HS, Lomotil 2 tablets AC, and fibercon BID. and HS. Positive right axillary vein DVT and vascular consulted and lovenox initiated to be followed by [facility]. Psychology also consulted. GI soft was initiated inpatient and tolerated. Additional PMH includes: nicotine use disorder, feeding difficulties, mood disorder, anxiety, and depression. Surgical history includes: s/p ileocecal resection (2005) c/b abscesses and SBO. Presented to [facility] on 09/02/2024 for left DL PICC line concerns of occulsion. Purple lumen not patent and no blood return. Was admitted with diagnosis of clotted LUE PICC line. Diagnosis with acute provoked DVT in LUE. Was very consistent with taking Lovenox injections. Heparin initiated to bridge to [facility]. PICC removed and IR placed right DL reece.Tip in expected location of RA. Was also given IV iron during admission. TPN restarted w/o issues and discharged on 09/06/2024. HOME NUTRITION SUPPORT DISCHARGE PLAN OF CARE SERVICE DATE: 08/30/2024 SERVICE TIME: 1245 DISCHARGE DATE: 08/30/24 Discharge Plan: Plan to discharge: Home HPN / IVF Physician Name/Phone/Fax: Dr. Berna Mike, [facility] Nutrition Support Service P: [phone], F: [phone] Infusion Pharmacy Name/Phone/Fax: [facility] [place] P: [phone], F: [phone] Home Health Care Name/Phone/Fax: [facility] P: [phone], F: [phone] Treatment Plan: Indications: Short Bowel Syndrome Length of Therapy: Greater than 6 months of PN Discontinuation Goals: Future surgery Care Plan: Diet GI soft, lactose controlled, gluten free (per pt preference) 10 gm sugar (to control ostomy output) Supplements Ensure Max Drip Drop Medications Imodium 4 mg 30 min before meals + bedtime Lomotil 2.5 mg TID - 30 min before meals + bedtime Parenteral Nutrition Infuse 3500mL over 12 hours, 1 hr taper up, 1 hour taper down. (850kcal dextrose, 105g AA x 2 days per wk; 3-in-1 with 438mL SMOFlipid x 5 days per wk). Labs: per HPN Anatomy: (per op note 08/18): intact stomach and duodenum, 130 cm SB to EI; majority of colon (from mid-ascending colon to sigmoid colon) OOC; -ICV, +R, +A. Anthropometrics: Weight: 48.2 kg (106 lb 4.2 oz) (08/28/24 1706 : [place], [facility], [place]) Dosing Weight: 50.6 kg (111 lb 8.8 oz) Dosing Weight Type: Admit weight (standing 08/17) IV access: Access Discharged on: [place] Follow Up: Return to clinic Follow Up Frequency: 2 weeks MNT Billing: $ Reassessment: 16-30 minutes SIGNATURE: Darlene Mcfarlane, , RD, LD PATIENT NAME: Francine Hobson DATE: August 30, 2024 TIME: 12:12 PM Weight 09/03/2024 110 lb 10.7 oz 09/01/2024 105 lb 08/28/2024 106 lb 4.2 oz 08/27/2024 117 lb 1 oz 08/26/2024 117 lb 1 oz 08/23/2024 116 lb 13.5 oz 08/23/2024 Today patient presents to the outpatient N[facility] discharge clinic for follow up with her . Since discharge had issues with PICC line as noted above and admitted to [facility] where Reece placed. Patient is tolerating TPN w/o edema, SOB, or line issues. Denies fever, chills, or night sweats.Denies dysphagia or GERD. Positive increase in weight to 118 lbs.Goal weight of 130 lbs. Has not used additional shelf fluid since discharged. Positive urinary incontinence and frequency.To obtain urinalysis today and will be making an appt with the urologist. On Eliquis for recent LUE DVT. Denies black or blood from stoma. Consistency is liquid to mushy. More recently 2 episodes of chest tightness while active. It dissipated in a few minutes. [place] she may be doing too much. Denies this ever happening before. Seeing vascular medicine today. Patient understands to follow up with our team for questions or concerns and has our contact information. Review of systems: GENERAL: No weight loss, malaise or fevers NECK: Negative for lumps, goiter, pain and significant neck swelling RESPIRATORY: Denies SOB CARDIOVASCULAR: Chest pain times 2 and dissipated in a few minutes. GI: Denies nausea or vomiting : Positive incontinence and leakage. See urologist. Weight Weight 09/05/2024 118 lb 6.2 oz 09/04/2024 115 lb 8.3 oz 09/03/2024 110 lb 10.7 oz 09/01/2024 105 lb 08/28/2024 106 lb 4.2 oz 08/27/2024 117 lb 1 oz 08/26/2024 117 lb 1 oz 08/23/2024 116 lb 13.5 oz 08/23/2024 116 lb 2.9 oz 08/17/2024 111 lb 8.8 oz ENDOSCOPY/PATHOLOGY: Please see under procedures IMAGING: Please see under imaging. LAB WORK: Hemoglobin (g/dL) Date Value 09/04/2024 8.9 Hematocrit (%) Date Value 09/04/2024 28.3 WBC (k/uL) Date Value 09/04/2024 5.17 Glucose (mg/dL) Date Value 09/06/2024 107 Potassium (mmol/L) Date Value 09/06/2024 3.8 Sodium (mmol/L) Date Value 09/06/2024 140 Chloride (mmol/L) Date Value 09/06/2024 98 CO2 (mmol/L) Date Value 09/06/2024 31 Creatinine (mg/dL) Date Value 09/06/2024 0.62 BUN (mg/dL) Date Value 09/06/2024 19 Anion Gap (mmol/L) Date Value 09/06/2024 11 Calcium, Total (mg/dL) Date Value 09/06/2024 9.5 Protein, Total (g/dL) Date Value 09/04/2024 6.8 Albumin (g/dL) Date Value 09/06/2024 3.6 Bilirubin, Total (mg/dL) Date Value 09/04/2024 0.2 Alkaline Phosphatase (U/L) Date Value 09/04/2024 236 AST (U/L) Date Value 09/04/2024 18 ALT (U/L) Date Value 09/04/2024 20 See in chart for scanned outside labs. Physical Exam: There were no vitals taken for this visit. There is no height or weight on file to calculate BMI. Constitutional: Chronically ill, A and O times 3, In no acute distress HEENT: No icterus. Moist mucus membranes. Neck: No lymphadenopathy. No major masses Resp: Non labored on RA CVS: regular rate and rhythm. Abdo: Non-distended, soft, no masses. Edema: No lower extremity edema. Skin: Warm and dry. No rash. Nails intact Neuro: A&O, normal gait. Venous Access: Line: Right Double Lumen Reece - Site: clean dry non tender Assessment IMPRESSION: Francine Hobson is a 38 year old female who presents today for follow up after recent hospitalization at [facility] from 08/17/2024 thru 08/30/2024 for crohn's colitis in the setting of intestinal obstruction. On 08/18/24: Exploratory laparotomy, excision of previous ileocolic anastomosis, and end ileostomy. Post op with ABEL and bowel stoppers added. On 09/02/2024 had issues with flushing PICC and presented to [facility] and admitted with left DVT. Heparin with bridge to Eliquis initiated. PICC removed and right DL Reece placed. TPN restarted w/o issues. Received IV iron for SUE. Diagnosis Crohn's colitis with recent resection and severe malnutrition on TPN. Francine Hobson had the opportunity to have all their concerns and questions addressed DIAGNOSTIC ISSUES AND PLAN: 1. Nutritional Status -Severe Malnutrition - On Home TPN -Continue weekly labs -Follow up in one month with Dr. Mike, order placed. Our manager ecommerce will call you -We are increasing your daily volume from 3.5=> 3.8 liters -We are increasing your calories by ~ 200 -Please record all I and O's -Let the team know if you need extra shelf stable fluid more than 3 times a week, 2. Attention Central line care -Dressing change once a week by [facility] -Monitor for signs or symptoms of infection 3. High output ostomy: -Continue loperamide and lomotil and take 30 minutes prior to meals -Please check with your pharmacist to make sure it is okay to crush pills and or open capsules -If High out put continues after trying cholestyramine notify colo rectal so they can prescribe tincture of opium -Please continue low sugar, complex carbohydrates, and drip drop 4. Additional items: -Follow up with other providers as scheduled FOLLOW-UP: Arranged with Victor Manuel Mike MD, [facility] HPN Provider and HPN Electronically SIGNED by Licensed Certified Nurse Practitioner: Chantel Cottrell CNP 09/08/24 Home Nutrition Support Service - Hospital Discharge Follow Up Visit HPN/CGRT program patient Francine Hobson is a 39 year old female with an underlying diagnosis of Crohn's disease since 2007. Patient has been on home PN since 08/08/24 for a condition of ABEL. Plans are to continue with PN until patient transitions to enteral nutrition for 3-6 months. Note plans for future stoma takedown. Dr. Rousseau was hopeful patient would be able to wean before then, however, question ability at this time. Patient reports no problems with TPN infusions at this time. Patient reports no fevers at home and patient checks urine reductions at home with first am void (reports as negative). Today, patient reports ostomy output continues to be extremely high. She reports having to empty ostomy every hour on the hour. In discussion w/ patient, estimate output is >4 liters per day. Patient is taking Lomotil and Imodium before meals and at night. She saw [facility] yesterday who started Cholestyramine and discussed possible TOO in the future if no improvement. Patient reports feeling dry and like she needs more fluid. Will increase PN volume w/ next mix. Patient also requesting increase in PN kcals as she really wants to gain weight and feels she has been much more active recently. Goal 130 lbs. Last Intestinal Surgery: 08/18/24: XL, excision ICA, creation end ileostomy. Anatomy: Per Surgical history, the patient has 130 cm of small bowel to ileostomy and majority of colon out of continuity, ?ICV, + rectum and + anus. Estimated Daily Nutritional Needs: Dosing weight 53.5 kg 1875 - 2405 kcals/day = 35 - 45 kcals/kg dosing weight for weight gain 95 - 120 g protein/day = 20% of estimated energy needs Anthropometrics: Height: 5'6 Weight: 118 lbs (09/19/24 w/ clothes, shoes, PN backpack, etc); 114 lbs (09/18/24); 115.5 lbs (09/04/24) Usual weight: 115 lbs Goal weight: 130 lbs BMI:19; Below goal weight Weight has not changed significantly Intake: Patient is currently taking 3500 mLs of PN over 12 hours 7 days per week providing 1896 calories/day and 105 gms of amino acids/day. This includes 438 mLs of 20% lipids 5x weekly. Patient utilizes PRN IVF bags 0 days/week because she still needs education on how to administer, which is planned for this week during nursing visit. She does feel she could use more fluid and probably would have infused PRN IVFs if she had already been educated. Liquid po intake is not recorded at home and diet is full liquids. Patient drinking 3-4 packets Drip Drop per day. Output: Urine output is not recorded at home but is reported as light in color, and patient has the following measurable drainage type(s): ileostomy >4000 mLs (estimated based on discussion w/ patient). The patient empties ostomy ~20 times per day. New HPN patient review: If applicable: reviewed Oral rehydration solution and bowel stopper timing : YES Patient using thermometer and scale: YES Patient sending I/Os: NO, she plans to start. She has had several hospitalizations since starting PN and this is the longest she has been home, so she feels like she is just getting into a routine Reviewed guidelines for output level: YES Patient's right-sided double lumen Reece was placed on 09/05/24. Patient reports No swelling, tenderness, redness, or drainage at the catheter exit site. The stitch has not been removed. The catheter dressing is changed weekly. Patient is prescribed 50% ethanol lock therapy. Patient is using as prescribed. Patient is flushing etoh: YES Does patient have homecare nursing? YES Reviewed how to contact HPN: via phone, email, after hours pager: YES Reviewed symptoms of: dehydration, fever, SOB, shaking/chills, and/or sweats during infusion, edema: YES Reviewed catheter malfunction: YES, NST RN saw patient after RD/GEOPHYSICAL DRAFTER visit Nutrition Focused Physical Exam: Refer to MD/CRISTOBAL physical exam. Defer nutrition focused physical to next in person office visit reassessment. Edema: No Functional status: Functional, yet not normal, able to be up and about with fairly normal activities for a duration of months Potential Signs of Inflammation: chronic condition Overall Assessment: Crohn's disease c/b recurrent pSBOs High ostomy output Hx of PICC-associated DVT RECOMMENDATIONS: Changes to be made to the patient's PN formula are: increase volume, increase kcals. CMP, CBC, Mg, PO4 due next week. Return to clinic in 4-[address] Mike and RD. Signed by: Abdirahman Christie RD Date: 09/18/2024 Total time of this patient encounter today was >60 mins, including: preparation for visit, direct time with the patient, examination, orders, review of records, and documentation. documented in this encounter [facility] 09-19-2024 Note [facility] 09-19-2024 History of Present illness Narrative Home Nutrition Support Service - Hospital Discharge Follow Up Visit HPN/CGRT program patient Francine Hobson is a 39 year old female with an underlying diagnosis of Crohn's disease since 2007. Patient has been on home PN since 08/08/24 for a condition of ABEL. Plans are to continue with PN until patient transitions to enteral nutrition for 3-6 months. Note plans for future stoma takedown. Dr. Rousseau was hopeful patient would be able to wean before then, however, question ability at this time. Patient reports no problems with TPN infusions at this time. Patient reports no fevers at home and patient checks urine reductions at home with first am void (reports as negative). Today, patient reports ostomy output continues to be extremely high. She reports having to empty ostomy every hour on the hour. In discussion w/ patient, estimate output is >4 liters per day. Patient is taking Lomotil and Imodium before meals and at night. She saw NKECHI yesterday who started Cholestyramine and discussed possible TOO in the future if no improvement. Patient reports feeling dry and like she needs more fluid. Will increase PN volume w/ next mix. Patient also requesting increase in PN kcals as she really wants to gain weight and feels she has been much more active recently. Goal 130 lbs. Last Intestinal Surgery: 08/18/24: XL, excision ICA, creation end ileostomy. Anatomy: Per Surgical history, the patient has 130 cm of small bowel to ileostomy and majority of colon out of continuity, ?ICV, + rectum and + anus. Estimated Daily Nutritional Needs: Dosing weight 53.5 kg 1875 - 2405 kcals/day = 35 - 45 kcals/kg dosing weight for weight gain 95 - 120 g protein/day = 20% of estimated energy needs Anthropometrics: Height: 5'6 Weight: 118 lbs (09/19/24 w/ clothes, shoes, PN backpack, etc); 114 lbs (09/18/24); 115.5 lbs (09/04/24) Usual weight: 115 lbs Goal weight: 130 lbs BMI:19; Below goal weight Weight has not changed significantly Intake: Patient is currently taking 3500 mLs of PN over 12 hours 7 days per week providing 1896 calories/day and 105 gms of amino acids/day. This includes 438 mLs of 20% lipids 5x weekly. Patient utilizes PRN IVF bags 0 days/week because she still needs education on how to administer, which is planned for this week during nursing visit. She does feel she could use more fluid and probably would have infused PRN IVFs if she had already been educated. Liquid po intake is not recorded at home and diet is full liquids. Patient drinking 3-4 packets Drip Drop per day. Output: Urine output is not recorded at home but is reported as light in color, and patient has the following measurable drainage type(s): ileostomy >4000 mLs (estimated based on discussion w/ patient). The patient empties ostomy ~20 times per day. Total Increments: [address], , [facility] documented in this encounter [facility] 09-19-2024 Telephone encounter Note [facility] nursing returned patient message regarding supplies. Left Message: No Information/Recommendations provided regarding - spoke with spouse who requested larger pouches and extension tubing due to high output at night. Patient currently on campus for procedure. Supplies set aside to be picked - [facility] 07/08 convex-it, drainable and high volume pouches, gravity drainage bag. After call blog writer was notified by a colleague that she had already provided supplies to spouse. Unclear if the return call above was before or after. If he returns to desk will assess needs. Time spent: 15 minutes Angelina Feldman RN, BSN, CWOCN For non-emergent [facility] Nursing patient care needs - Please place a consult via Epic under ostomy . WOC Nurse Available Hours: M-F: [phone]; Weekends & Holidays: [phone] For emergent WO Nursing patient care needs - Page #[phone], during available hours only. [facility] 09-19-2024 Miscellaneous Notes WOC nursing returned patient message regarding supplies. Left Message: No Information/Recommendations provided regarding - spoke with spouse who requested larger pouches and extension tubing due to high output at night. Patient currently on campus for procedure. Supplies set aside to be picked - Con[employer] 1 07/08 convex-it, drainable and high volume pouches, gravity drainage bag. After call blog writer was notified by a colleague that she had already provided supplies to spouse. Unclear if the return call above was before or after. If he returns to desk will assess needs. Time spent: 15 minutes Angelina Feldman RN, BSN, CWOCN For non-emergent [facility] Nursing patient care needs - Please place a consult via Epic under ostomy . WOC Nurse Available Hours: M-F: [phone]; Weekends & Holidays: [phone] For emergent WO Nursing patient care needs - Page #[phone], during available hours only. documented in this encounter [facility] 09-19-2024 Note [facility] 09-18-2024 Note [facility] 09-18-2024 History of Present illness Narrative ET/WOCN Nursing Consult Topic: ET/WOCN Consultation Note Outcome: Patient in clinic for visit with Obdulia SIMMS. Patient has a new loop ileostomy that was created on 08-18-24. Patient reports high volume output and is having some challenges with skin irritation. Flange aperture too large. Refit and new system used today. Samples provided as patient was unsure which system she was interested in vs what works best. She will call back when she is ready for a new order form. Provided with: Coloplast Flex light convex red large flange, drainable and HVOP option for pouch, Radha 2 1/4 convex flange, and the ConvaTec system described below. Next Scheduled Visit: as needed Assessment Stoma Type: Loop ileostomy Diameter: 1 1/4 Location: RLQ Protrusion: Budded Mucosal condition and color: Red and moist Mucocutaneous junction Intact Peristomal Skin: Erythema and Denuded in wide area inferior to stoma matching exposed skin from flange aperture Peristomal contour: Concave Supportive Tissue: Soft, loose skin Character of output: green liquid effluent Emptying frequency per day: every 30-60 min. Patient is on TPN, also drinking drip drop, gatorade, propel Pouching System Pouching system removed: [place] New Image 2 1/4 Flat Ceraplus Flange with Tape Border #[id number], ceraplus ring, HVOP Wearing time: 3-4 days Pouching system evaluation: aperture too large, convexity needed to stabilize soft tissue Recommendations: Skin Care: Apply ConvaTec Stomahesive powder to any areas of skin breakdown PRN until healed. Dust off excess. Applied and sealed with 3M no sting Pouching system Applied: Hollihesive wedge from 3-9 o'clock, 1 1/4 ConvaTec PRASAD-FIT Natura Durahesive Pre-cut Skin Barrier with CONVEX-IT (#[id number]), ceraplus ring, drainable pouch, belt Expected wearing time: 3-4 days Time Increment: 1 hour Angelina Feldman RN, BSN, CWOCN For non-emergent [facility] Nursing patient care needs - Please place a consult via Epic under ostomy . WOC Nurse Available Hours: M-F: [phone]; Weekends & Holidays: [phone] For emergent WOC Nursing patient care needs - Page #[phone], during available hours only. documented in this encounter [facility] 09-18-2024 Note HNO ID: [id number] Author: ABDIRAHMAN CHRISTIE RD Service: ? Author Type: Registered Dietitian Type: Progress Notes Filed: 09/20/2024 15:43 Note Text: Abstract moved to office visit with Chantel Cottrell CNP dated 09/19/24. Abdirahman Christie RD, LD, CNSC [facility] 09-18-2024 History of Present illness Narrative Abstract moved to office visit with Chantel Cottrell CNP dated 09/19/24. Abdirahman Christie RD, LD, [facility] documented in this encounter [facility] 09-18-2024 History of Present illness Narrative COLORECTAL SURGERY Post-Op Visit Francine Hobson returns for a post-operative visit after undergoing surgery, on 08/18/24. Attending Physician: Elsy Rousseau DO Principal Diagnosis: Crohn's colitis with intestinal obstruction Reason for Hospitalization: Francine Hobson is a 38 year old female presenting with crohn's colitis with intestinal obstruction. She has a significant medical history of nicotine use disorder, feeding difficulties, mood disorder, anxiety, and depression. She has a significant surgical history of s/p ileocecal resection (2005) c/b abscesses and SBO. She presented to the hospital on 08/17/24 for operative management with Elsy Ramsay DO. Operations During Hospitalization: 08/18/24: Exploratory laparotomy, excision of previous ileocolic anastomosis, end ileostomy Procedures During Hospitalization: 08/17- CT enterography 08/18- KUB 08/21- Unilateral UE DVT ultrasound, PICC line placement 08/28- Unilateral UE DVT ultrasound Hospital Course: Francine Hobson came to the hospital for symptoms of intestinal obstruction. CT enterography (08/17) revealed active inflammatory small bowel crohn's disease with luminal narrowing, distribution of active inflammatory disease is similar compared to 07/30/24 imaging with interval increased upstream dilation, suggesting progressive obstruction. Multifocal stricturing in the terminal ileum. It was decided to have surgery with Elsy Rousseau DO. Please see operative report for full details. Afterward, the patient was transferred to a regular nursing floor. An NG tube was placed in the OR and abdominal x-ray confirmed positioning. Pain was controlled with oral and IV medication per ERAS protocol and her intake and output was closely monitored. The PICC line she came to the hospital with was removed and blood cultures were negative. Another PICC line was placed 08/21. NST was consulted to resume HTPN. Her NG tube was removed 08/22 and diet was advanced as tolerated. Freed catheter was removed on postoperative day (POD) 3 and she voided independently. Pain management was consulted for TAP block, however, the patient declined. Bowel stoppers were added to help with high ostomy output. Psychology was consulted and their recommendations were appreciated. DVT US were positive for DVT in right axillary vein. Vascular medicine was consulted and their recommendations were followed. DVT prophylaxis was managed by Lovenox 40 mg daily and intermittent compression stockings. Her electrolytes were monitored with daily labs and replaced as needed. Once the patient's pain was controlled with oral medication, GI soft diet was tolerated, and demonstrated appropriate bowel function, she was deemed fit for discharge. The patient is asked to please follow up with Obdulia Tejeda PA-C as scheduled. Bowel Stopper Regimen: Imodium 4mg before meals and bedtime (4 times daily) Lomotil 2 tablets before meals and bedtime (4 times daily) Fibercon twice daily Vascular medicine plan: Continue Lovenox 1.5mg/kg/dose (70 mg) sc daily (1 month) Start Eliquis 5 mg tablets every 12 hours after finishing lovenox injections (continue for 2 months) Follow up on 09/19/2024 at 2:30pm with repeat bilateral upper extremity DVT scan prior to visit Her post-operative period was complicated by DVT and readmission for DVT 09/02-09/06/24. She is tolerating diet with an improving appetite, stable weight, and energy level is improving . She has no specific complaints, except urinary leakage and high output. Stoma: -empties her pouch every 30 mins-1 hour -completely full each time -looks like pureed baby food or watery -changes entire appliance every 2-3 days -Skin irritation around stoma, burning, mild bleeding. Bowel Regimen: -Lomotil 2 pills ACHS -Imodium 2 pills ACHS - not doing fibercon due to the tablet not dissolving Eating/Drinking/Current diet: -eats rice cakes, rice, mashed potatoes, chicken, pork, eggs -drinks 5-6 bottles of water a day -1 Gatorade a day, 3-4 Packets of Drip Drop a day, protein shakes sometimes - TPN N/V: -Nausea with no vomiting , not daily - zofran F/C N/a Incision/wound: no drainage Pain: no, no pain medication Left hand: -problems since surgery - quinonez that TPN was in - hurts - talked with vascular medicine and told to call PCP - has tried warm compresses Urinary: -can have urinary leakage when standing - when she goes to wipe will feel like she is urinating - can have urinary urgency after her TPN - not a lot of bladder control Path: Component FINAL DIAGNOSIS Distal small bowel and part of ascending colon, right hemicolectomy: - Chronic active colitis with ulcer, extensive pyloric gland metaplasia, granulomas and transmural lymphoid aggregates, negative for dysplasia. See comment. - One lymph node, negative for neoplasm (0/). at 1151 EST Diagnosis Comment The sections show chronic active enteritis with extensive pyloric gland metaplasia, and ulcer. There is transmural lymphoid aggregates and mural fibrosis. Strictures were noted on macroscopic examination. Several granulomas, some suppurative, are present. Some of the granulomas are in close proximity to deep ulcers and abscess formation. The colonic segment reveals mildly active colitis. Dysplasia is not seen. In the appropriate clinical setting, the findings are consistent with Chron's disease. AFB and GMS stains to exclude infections are pending, the results will be reported as an addendum. Current Outpatient Medications Medication Sig Dispense Refill apixaban (ELIQUIS) 5 mg tab(s) Take 2 tablets (10 mg) by mouth twice daily for 7 days. Then take 1 tablet (5 mg) by mouth twice daily for 23 days 74 tablet 0 diphenoxylate-atropine (LOMOTIL) 2.5-0.025 mg per tablet Take 2 tablets by mouth before meals and at bedtime for 90 days. 240 tablet 2 loperamide (IMODIUM) 2 mg cap(s) Take 2 capsules by mouth before meals and at bedtime. [address] (PROTONIX) 40 mg tablet Take 1 tablet by mouth once daily. 30 tablet 2 ondansetron orally disintegrating (ZOFRAN ODT) 4 mg disintegrating tablet Take 1 tablet by mouth every 8 hours as needed for nausea/vomiting (first line). 30 tablet 0 promethazine (PHENERGAN) 25 mg tablet Take 1 tablet by mouth every 6 hours as needed for nausea/vomiting (second line). 30 tablet 0 acetaminophen (TYLENOL) 500 mg tablet Take 2 tablets by mouth every 6 hours as needed (mild, moderate pain). 30 tablet 0 propranolol (INDERAL) 10 mg tablet Take 10 mg by mouth once daily. As needed for panic attacks dicyclomine (BENTYL) 10 mg capsule Take 10 mg by mouth three times a day. Lactobacillus acidophilus (PROBIOTIC ACIDOPHILUS ORAL) Take 1 capsule by mouth once daily Cholecalciferol, Vitamin D3, (VITAMIN D) 25 mcg (1,000 unit) cap Take 1,000 Units by mouth once daily. hydrOXYzine HCl (ATARAX) 25 mg tablet Take 25 mg by mouth three times a day as needed for anxiety. citalopram (CELEXA) 40 mg tablet Take 40 mg by mouth once daily. calcium polycarbophil (FIBERCON) 625 mg tablet Take 1 tablet by mouth two times a day. (Patient not taking: Reported on 09/18/2024) 60 tablet 2 enoxaparin (LOVENOX) 80 mg/0.8 mL Inject 0.7 mL subcutaneously every 24 hours. Please eject 0.1 mL of fluid from syringe into trash. Inject the remaining fluid into the subcutaneous tissue. (Patient not taking: Reported on 09/18/2024) 24 mL 0 gabapentin (NEURONTIN) 300 mg capsule Take 1 capsule by mouth three times a day for 30 days. (Patient not taking: Reported on 09/18/2024) 90 capsule 0 amitriptyline (ELAVIL) 25 mg tablet Take 25 mg by mouth daily at bedtime. (Patient not taking: Reported on 09/18/2024) midodrine (PROAMATINE) 10 mg tablet Take 10 mg by mouth three times a day. (Patient not taking: Reported on 09/18/2024) No current facility-administered medications for this visit. ALLERGIES Allergen Reactions Ibuprofen Other: See Comments Nsaids (Non-Steroid* Other: See Comments WBC (k/uL) Date Value 09/04/2024 5.17 RBC (m/uL) Date Value 09/04/2024 3.19 (L) Hemoglobin (g/dL) Date Value 09/04/2024 8.9 (L) Hematocrit (%) Date Value 09/04/2024 28.3 (L) MCV (fL) Date Value 09/04/2024 88.7 MCH (pg) Date Value 09/04/2024 27.9 MCHC (g/dL) Date Value 09/04/2024 31.4 RDW-CV (%) Date Value 09/04/2024 14.6 Platelet Count (k/uL) Date Value 09/04/2024 427 (H) MPV (fL) Date Value 09/04/2024 10.4 Glucose (mg/dL) Date Value 09/06/2024 107 (H) BUN (mg/dL) Date Value 09/06/2024 19 Creatinine (mg/dL) Date Value 09/06/2024 0.62 Sodium (mmol/L) Date Value 09/06/2024 140 Potassium (mmol/L) Date Value 09/06/2024 3.8 Chloride (mmol/L) Date Value 09/06/2024 98 CO2 (mmol/L) Date Value 09/06/2024 31 (H) Protein, Total (g/dL) Date Value 09/04/2024 6.8 Albumin (g/dL) Date Value 09/06/2024 3.6 (L) Calcium, Total (mg/dL) Date Value 09/06/2024 9.5 Alkaline Phosphatase (U/L) Date Value 09/04/2024 236 (H) Bilirubin, Total (mg/dL) Date Value 09/04/2024 0.2 AST (U/L) Date Value 09/04/2024 18 ALT (U/L) Date Value 09/04/2024 20 Ht 167.6 cm (5' 6 ) Wt 51.7 kg (114 lb) LMP 08/19/2024 (Approximate) BMI 18.40 kg/m Abdominal examination: - soft - non distended - non tender - midline wound: well healed - stoma: red, budded, peristomal irritation Anorectal: deferred Motor Tester present: Yes Sensitive Exam: no Assessment Assessment: Francine Hobson is a 38 year old who is 4 weeks s/p Exploratory laparotomy, excision of previous ileocolic anastomosis, end ileostomy for Crohn's colitis. Overall, SHE is doing okay. -Appetite: On TPN. Eating and drinking in addition. -Stoma: high output, unable to do fibercon as it comes out of stoma bag, will try cholestyramine, can consider tincture of opium -Incision/wound: well healed -Pathology: consistent with Crohn's - Urinary: discussed with Dr. Rousseau, consult to uro/childcare attendant placed Plan: - TPN per CGRT team - Lomotil and Imodium 2 pills QID - add cholestyramine BID with meals - could consider tincture of Opium - consult uro/childcare attendant for urinary leakage ( per Dr. Rousseau) - UA to rule out UTI - follow up with vascular medicine and hematology as scheduled - follow up with GI - follow up with Dr. Rousseau as scheduled - contact with questions/concerns Obdulia Tejeda PA-C [facility] documented in this encounter [facility] 09-18-2024 Note [facility] 09-14-2024 Note HNO ID: [id number] Author: GHASSAN ANGULO APRN.BROACH TROUBLE [employer]ER Service: ? Author Type: Nurse Practitioner Type: Progress Notes Filed: 09/14/2024 15:45 Note Text: [facility] Interventional Radiology HPI: Francine Hobson is a 39 year old female with a PMH of Crohn's colitis with intestinal obstruction s/p end ileostomy and malnutrition with history of right-sided dual-lumen tunneled Reece catheter insertion on 09/05/24 at [facility]. She presents today for evaluation of her Reece catheter. She reports, the site has been sore and painful since placement, especially over her collarbone. This pain is aggravated by movement and certain positioning. It is alleviated by rest. She had severe pain when the line dressing was changed by her home health care nurse. She took PRN pain medication at that time, but this did not relieve her pain. It just made her feel nauseous. She felt her pain was improving, but last night after she showered, she felt the site had been re-aggravated. She says the line functions well, but she feels a cold discomfort when the line is flushed. IR COURSE: 09/05/24 IR INSERT CENTRAL LINE CATH REECE: IMPRESSION: 1. TECHNICALLY SUCCESSFUL INSERTION OF RIGHT-SIDED SUPRADIAPHRAGMATIC DUAL-LUMEN TUNNELED REECE CATHETER, WITH TIP IN THE EXPECTED LOCATION OF THE RIGHT ATRIUM. THE CATHETER IS READY FOR USE. 2. SUCCESSFUL LEFT UPPER EXTREMITY PICC LINE REMOVAL. PE: RIGHT VENOTOMY SITE: Dressing CDI with ecchymosis present underneath dressing. Site painful with palpation. RIGHT REECE SITE: Dressing CDI. Suture intact. Both lumens flushed with ease and had immediate return of blood flow. No redness, ecchymosis, drainage present. Intervention: - Site assessed, no concern for infection. - Continue to rest right arm and reduce aggravating activity. - May apply ice pack over venotomy site to relieve pain/soreness and take tylenol PRN for symptom management. - Discussed option to remove current Reece catheter and replace at a new site, but the same pain may occur at a different site. At this time, will hold off until site has more time to heal. Impression/Plan: Francine Hobson is a 39 year old female with a PMH of Crohn's colitis with intestinal obstruction s/p end ileostomy and malnutrition with history of right-sided dual-lumen tunneled Reece catheter insertion on 09/05/24 at [facility]. - For future concerns please call Interventional Radiology nurse triage line [phone], Wednesday - Wednesday 9 a.m. - 5 p.m. - After hours please call [phone] and ask for Interventional Radiology Fellow radio television announcer. - In the event of acute symptoms report directly to local emergency department and notify the Department of Intervention Radiology after the fact. I spent a total of 25 minutes on the date of the service which included preparing to see the patient, [id number] patient care, completing clinical documentation, and obtaining and/or reviewing separately obtained history. Ghassan Angulo, SHOULDER JOINER.[facility] Interventional Radiology extension [phone] [facility] 09-11-2024 Telephone encounter Note SOCIAL WORK FOLLOW UP NOTE: [facility] Date of service: 09/11/24 TOPICS ADDRESSED: community resources MD and FLEET DIRECTOR requesting recommendations from JUDITH - pt is a hematology patient, has new DVT, she previously was on injectable blood thinners but pt unable to do at home/scared to do. Now oral blood thinner, but having difficulty digesting it. JUDITH recommended pt f/u with her PCP and/or GI doc for best recommendations for digestion of pills, vs injectable and HHC RN cont to encourage pt to learn. Team aware of the above. PLAN: Referral to community resource F/U APPOINTMENT: n/a Assigned SW listed in Care Team tab: NA NIKOLAY Vicente [facility] 09-11-2024 Miscellaneous Notes SOCIAL WORK FOLLOW UP NOTE: [facility] Date of service: 09/11/24 TOPICS ADDRESSED: community resources MD and FLEET DIRECTOR requesting recommendations from SW - pt is a hematology patient, has new DVT, she previously was on injectable blood thinners but pt unable to do at home/scared to do. Now oral blood thinner, but having difficulty digesting it. SW recommended pt f/u with her PCP and/or GI doc for best recommendations for digestion of pills, vs injectable and HHC RN cont to encourage pt to learn. Team aware of the above. PLAN: Referral to community resource F/U APPOINTMENT: n/a Assigned SW listed in Care Team tab: NA NIKOLAY Vicente documented in this encounter [facility] 09-08-2024 Telephone encounter Note Called pt to confirm 3 month hospital follow up appt. Patient is concerned why she is scheduled so far out. Pt was seen by Teresa in house and has some medication questions as well. Please contact patient to assist. [facility] 09-08-2024 Miscellaneous Notes Called pt to confirm 3 month hospital follow up appt. Patient is concerned why she is scheduled so far out. Pt was seen by Teresa in house and has some medication questions as well. Please contact patient to assist. documented in this encounter [facility] 09-06-2024 Note HNO ID: [id number] Author: ?, ?, ? Service: ? Author Type: ? Type: Plan of Care Filed: 09/06/2024 13:05 Note Text: PHARMACY BEDSIDE DELIVERY SERVICE Patient Name: Francine Hobson The marked outpatient medications were Filled at: [facility] and delivered to the patient's bedside to 315- delivered to patient Medication List CHANGE how you take these medications ELIQUIS 5 mg tab(s) Generic drug: apixaban Take 2 tablets (10 mg) by mouth twice daily for 7 days. Then take 1 tablet (5 mg) by mouth twice daily for 23 days What changed: how much to take how to take this when to take this additional instructions REFILL TOO SOON 09/22 * oxyCODONE IR 5 mg immediate release tablet Commonly known as: ROXICODONE Take 1 tablet by mouth every 6 hours as needed for pain for up to 7 days. What changed: Another medication with the same name was added. Make sure you understand how and when to take each. * oxyCODONE IR 5 mg immediate release tablet Commonly known as: ROXICODONE Take 1 tablet by mouth every 6 hours as needed for pain for up to 3 days. What changed: You were already taking a medication with the same name, and this prescription was added. Make sure you understand how and when to take each. * This list has 2 medication(s) that are the same as other medications prescribed for you. Read the directions carefully, and ask your doctor or other care provider to review them with you. CONTINUE taking these medications acetaminophen 500 mg tablet Commonly known as: TYLENOL Take 2 tablets by mouth every 6 hours as needed (mild, moderate pain). amitriptyline 25 mg tablet Commonly known as: ELAVIL CeleXA 40 mg tablet Generic drug: citalopram diazePAM 5 mg tablet Commonly known as: VALIUM Take 1 tablet by mouth every 6 hours as needed for muscle spasm or pain for up to 7 days. Do not take oxycodone and valium at the same time. Please spread out these medications by 2-3 hours. dicyclomine 10 mg capsule Commonly known as: BENTYL diphenoxylate-atropine 2.5-0.025 mg per tablet Commonly known as: LOMOTIL Take 2 tablets by mouth before meals and at bedtime for 90 days. enoxaparin 80 mg/0.8 mL Commonly known as: LOVENOX Inject 0.7 mL subcutaneously every 24 hours. Please eject 0.1 mL of fluid from syringe into trash. Inject the remaining fluid into the subcutaneous tissue. Fiber 625 mg tablet Generic drug: calcium polycarbophil Take 1 tablet by mouth two times a day. gabapentin 300 mg capsule Commonly known as: NEURONTIN Take 1 capsule by mouth three times a day for 30 days. hydrOXYzine HCl 25 mg tablet Commonly known as: ATARAX loperamide 2 mg cap(s) Commonly known as: IMODIUM Take 2 capsules by mouth before meals and at bedtime. midodrine 10 mg tablet Commonly known as: PROAMATINE ondansetron orally disintegrating 4 mg disintegrating tablet Commonly known as: ZOFRAN ODT Take 1 tablet by mouth every 8 hours as needed for nausea/vomiting (first line). pantoprazole DR 40 mg tablet Commonly known as: PROTONIX Take 1 tablet by mouth once daily. PROBIOTIC ACIDOPHILUS ORAL promethazine 25 mg tablet Commonly known as: PHENERGAN Take 1 tablet by mouth every 6 hours as needed for nausea/vomiting (second line). propranolol 10 mg tablet Commonly known as: INDERAL Vitamin D 25 mcg (1,000 unit) Cap Generic drug: Cholecalciferol (Vitamin D3) You might also be taking other medications not listed above. If you have questions about any of your other medications, talk to the person who prescribed them or your Primary Care Provider. Cindy Rossi PAGER: [facility] bedside September 06, 2024 1:04 PM [facility] 09-06-2024 Note HNO ID: [id number] Author: CHRISTA DESOUZA RN Service: Care Management Author Type: Registered Nurse Type: Care Mgt Progress Note Filed: 09/06/2024 12:51 Note Text: CARE MANAGEMENT DISCHARGE NOTE SERVICE DATE: September 06, 2024 SERVICE TIME: 12:50 PM Admission Date: 09/02/2024 LOS: 4 days Discharge Arrangement Discharge Arrangement: Home with Home Health Services Arranged Medical Services: Skilled Home Health Care Type: Home Health Agency, [facility] TPN: Discharge on TPN Infusion Pharmacy Name/Phone/Fax: [facility] [phone] Home Health Care Name/Phone/Fax: [facility] [phone] Caregiver Assessment Caregiver is ready, willing and able to meet the patient's needs as recommended by the inter-professional team: No Caregiver needed Transportation Arrangements Transportation Arrangements: Car Destination: [address] [place] [address] [place] [address] Handoff Communication: Handoff to: Other Caregiver Other Caregiver Name/Phone: [facility] // [employer] by [employer] : Additional Information: Patient ready for discharge. Confirmed [facility] received TPN prescription from [facility]. F2F sent to [facility]. Patient understands and awaiting ride from family. Discharge Information Row Name ED to Hosp-Admission (Current) from 09/02/[address] Home Health Care Agency [facility]fusion Pharmacy Agency [facility] Phone/ SIGNATURE: Christa Desouza RN PATIENT NAME: Francine Hobson DATE: September 06, 2024 TIME: 12:50 PM [facility] 09-06-2024 Note HNO ID: [id number] Author: JOSE RICE MD Service: Hospital Medicine Author Type: Physician Type: Progress Notes Filed: 09/06/2024 06:24 Note Text: Documentation Query Please clarify status of Crohn's Disease Crohn's disease, unspecified without complication This document will become part of the patient's medical record. [facility] 09-06-2024 Note HNO ID: [id number] Author: JOSE RICE MD Service: Hospital Medicine Author Type: Physician Type: Progress Notes Filed: 09/06/2024 06:23 Note Text: Documentation Query Please clarify the patient's nutritional status Provider Response: Moderate Protein Calorie Malnutrition based on the assessment, plan, and treatment This document will become part of the patient's medical record. [facility] 09-06-2024 Note HNO ID: [id number] Author: JOSE RICE MD Service: Hospital Medicine Author Type: Physician Type: Progress Notes Filed: 09/06/2024 06:23 Note Text: Documentation Query Please clarify type of anemia Iron Deficiency Please clarify the acuity of anemia Acute on Chronic This document will become part of the patient's medical record. [facility] 09-05-2024 Note HNO ID: [id number] Author: JOSE RICE MD Service: Hospital Medicine Author Type: Physician Type: Progress Notes Filed: 09/05/2024 13:58 Note Text: DEPARTMENT OF HOSPITAL MEDICINE PROGRESS NOTE SERVICE DATE: 09/05/2024 SERVICE TIME: 1:57 PM Hospital Medicine/Primary Attending: Jose Rice MD NIGHT AND WEEKEND COVERAGE: [employer] COVERAGE: Days: , please contact via [employer] Nights: - floor: please page [facility] Hospitalist night cover [phone] - 4W: please page [facility] Hospitalist night cover #[phone] - 5th floor: please page [facility] night cover #[phone] - SDU (17:00 - 19:00): Please page #[phone] - SDU (19:00 - 07:00): Please call [facility] at [phone] Subjective INTERVAL HPI: Pt seen and examined. Says she feels a little better today. Denies any new acute concerns or complaint. Discussed with IR radio television announcer, Reece placed by IR with general anesthesia today with removal of PICC line. Discussed POC. All questions answered. Current Facility-Administered Medications Medication Dose Route Frequency heparin iv infusion 25,000 units in NaCl 0.45% 250 mL STANDARD NOMOGRAM 0-3,000 Units/hr INTRAVENOUS CONTINUOUS And heparin RATE CHANGE bolus 1,000-10,000 Units for subtherapeutic PTTAC results 1,000-10,000 Units INTRAVENOUS PRN NaCl 0.9% iv flush bag 20 mL INTRAVENOUS PRN diazePAM 5 mg tab(s) (VALIUM) 5 mg ORAL q 6 H PRN oxyCODONE IR 5-10 mg tab(s) (ROXICODONE) 5-10 mg ORAL q 6 H PRN diphenoxylate-atropine 2.5-0.025 mg 2 tablet (LOMOTIL) 2 tablet ORAL AC and HS loperamide 4 mg cap(s) (IMODIUM) 4 mg ORAL AC and HS calcium polycarbophil 625 mg tab(s) (FIBERCON) 625 mg ORAL BID dicyclomine 10 mg cap(s) (BENTYL) 10 mg ORAL TID lactobacillus rhamnosus 10 billion cell (CULTURELLE) capsule 1 capsule ORAL DAILY ondansetron (PF) 4 mg injection (ZOFRAN) 4 mg INTRAVENOUS q [address] 40 mg tab(s) (PROTONIX) 40 mg ORAL DAILY (6 AM) amitriptyline 25 mg tab(s) (ELAVIL) 25 mg ORAL AT BEDTIME acetaminophen 1,000 mg tab(s) (TYLENOL) 1,000 mg ORAL q 6 H PRN citalopram 40 mg tab(s) (CeleXA) 40 mg ORAL DAILY gabapentin 300 mg cap(s) (NEURONTIN) 300 mg ORAL TID hydrOXYzine HCl 25 mg tab(s) (ATARAX) 25 mg ORAL TID PRN HYDROmorphone 0.2 mg injection (DILAUDID) 0.2 mg INTRAVENOUS q 4 H PRN LORazepam 0.5 mg injection (ATIVAN) 0.5 mg INTRAVENOUS q 4 H PRN ferric gluconate 125 mg in NaCl 0.9% 100 mL (FERRLECIT) 125 mg INTRAVENOUS DAILY AT 6 PM midodrine 10 mg tab(s) (PROAMITINE) 10 mg ORAL TID dextrose 5% in NaCl 0.45% iv infusion 75 mL/hr INTRAVENOUS CONTINUOUS magnesium sulfate 1 g in D5W 100 mL 1 g INTRAVENOUS ONCE Objective PHYSICAL EXAM: BP 102/46 Pulse 75 Temp (Src) 97.3 (Oral) Resp 15 Wt 118 lb 6.2 oz (53.7kg) SpO2 99% O2 Therapy: Room Air, Liters (Numeric Only): 2 Physical Exam Performed GENERAL: Alert, no distress, cooperative HEAD/SINUSES: No significant findings EYES: PERRLA, EOMI LUNGS: Lungs clear to auscultation, Good diaphragmatic excursion CARDIAC: Normal S1 and S2; no rubs, murmurs, or gallops ABDOMEN: Abdomen soft, non-tender, BS normal, No masses or organomegaly EXTREMITIES: Extremities normal, no deformities, edema, clubbing or skin discoloration. Good capillary refill., No ulcers Lines, Drains, and Airways Line Duration Peripheral 09/02/24 0459 [facility] Right 20 Gauge 3 days Peripheral 09/02/24 [facility] Short Left Foot 22 Gauge 3 days Central Line Double Lumen 09/04/24 0810 Tunneled Left Arm 1 day Central Line Double Lumen 09/05/24 0947 Tunneled Right Chest <1 day Drain Duration Small Bowel Ostomy 08/18/24 RLQ 17 days External Collection Device 09/02/24 2000 2 days Reviewed lines and needs to be continued: REASONS: Intravenous fluids, Telemetry, and Electrolyte replacement DATA: Diagnostic tests reviewed for today's visit: Most recent labs Most recent imaging Assessment/Plan Problem List Assessment AND Plan Acute deep vein thrombosis (DVT) of left upper extremity (HCC) Mood disorder (HCC) On total parenteral nutrition (TPN) Malnutrition of moderate degree (HCC) Crohn's colitis, with intestinal obstruction (HCC) Acute deep vein thrombosis (DVT) of axillary vein of right upper extremity (HCC) High output ileostomy (HCC) Acute deep vein thrombosis (DVT) of left upper extremity, unspecified vein (HCC) Principal Problem: Acute deep vein thrombosis (DVT) of left upper extremity (HCC): POA. acute DVT LUE PICC line location. Recurrent. - Hem/Onc consulted and per Dr. Lorenzo, Patient has continued to have clots at the site of her PICC line. At this point I feel she may need possibly different vascular access with plans to do TPN or long-term. May be a Reece or a port needs to be placed. Because this was a provoked clot I recommend continuing heparin while she is here in the hospital and then when she is discharged please turn her on Eliquis f (more content not included)... [facility] 09-04-2024 Note HNO ID: [id number] Author: JOSE RICE MD Service: Hospital Medicine Author Type: Physician Type: Progress Notes Filed: 09/04/2024 14:12 Note Text: DEPARTMENT OF HOSPITAL MEDICINE PROGRESS NOTE SERVICE DATE: 09/04/2024 SERVICE TIME: 2:10 PM Hospital Medicine/Primary Attending: Jose Rice MD NIGHT AND WEEKEND COVERAGE: [employer] COVERAGE: Days: [phone], please contact via [employer] Nights: - 3rd floor: please page [facility] Hospitalist night cover [phone] - 4W: please page [facility] Hospitalist night cover #[phone] - 5th floor: please page [facility] Hospitalist night cover #[phone] - SDU (17:00 - 19:00): Please page #[phone] - SDU (19:00 - 07:00): Please call [facility] at [phone] Subjective INTERVAL HPI: Pt seen and examined. Says she feels a little better today. Denies any new acute concerns or complaint. Discussed with IR radio television announcer today, Reece to be placed by IR with general anesthesia tomorrow with removal of PICC line. Discussed POC. All questions answered. Current Facility-Administered Medications Medication Dose Route Frequency heparin iv infusion 25,000 units in NaCl 0.45% 250 mL STANDARD NOMOGRAM 0-3,000 Units/hr INTRAVENOUS CONTINUOUS And heparin RATE CHANGE bolus 1,000-10,000 Units for subtherapeutic PTTAC results 1,000-10,000 Units INTRAVENOUS PRN NaCl 0.9% iv flush bag 20 mL INTRAVENOUS PRN diazePAM 5 mg tab(s) (VALIUM) 5 mg ORAL q 6 H PRN oxyCODONE IR 5-10 mg tab(s) (ROXICODONE) 5-10 mg ORAL q 6 H PRN diphenoxylate-atropine 2.5-0.025 mg 2 tablet (LOMOTIL) 2 tablet ORAL AC and HS loperamide 4 mg cap(s) (IMODIUM) 4 mg ORAL AC and HS calcium polycarbophil 625 mg tab(s) (FIBERCON) 625 mg ORAL BID dicyclomine 10 mg cap(s) (BENTYL) 10 mg ORAL TID lactobacillus rhamnosus 10 billion cell (CULTURELLE) capsule 1 capsule ORAL DAILY ondansetron (PF) 4 mg injection (ZOFRAN) 4 mg INTRAVENOUS q [address] 40 mg tab(s) (PROTONIX) 40 mg ORAL DAILY (6 AM) amitriptyline 25 mg tab(s) (ELAVIL) 25 mg ORAL AT BEDTIME acetaminophen 1,000 mg tab(s) (TYLENOL) 1,000 mg ORAL q 6 H PRN citalopram 40 mg tab(s) (CeleXA) 40 mg ORAL DAILY gabapentin 300 mg cap(s) (NEURONTIN) 300 mg ORAL TID hydrOXYzine HCl 25 mg tab(s) (ATARAX) 25 mg ORAL TID PRN HYDROmorphone 0.2 mg injection (DILAUDID) 0.2 mg INTRAVENOUS q 4 H PRN LORazepam 0.5 mg injection (ATIVAN) 0.5 mg INTRAVENOUS q 4 H PRN Parenteral Nutrition Adult 3 in 1 with SMOFlipid INTRAVENOUS ONCE PN (2200 START) ferric gluconate 125 mg in NaCl 0.9% 100 mL (FERRLECIT) 125 mg INTRAVENOUS DAILY AT 6 PM midodrine 10 mg tab(s) (PROAMITINE) 10 mg ORAL TID dextrose 5% in NaCl 0.45% iv infusion 75 mL/hr INTRAVENOUS CONTINUOUS Objective PHYSICAL EXAM: BP 113/57 Pulse 69 Temp (Src) 97.3 (Oral) Resp 16 Wt 115 lb 8.3 oz (52.4kg) SpO2 97% O2 Therapy: Room Air Physical Exam Performed GENERAL: Alert, no distress, cooperative HEAD/SINUSES: No significant findings EYES: PERRLA, EOMI LUNGS: Lungs clear to auscultation, Good diaphragmatic excursion CARDIAC: Normal S1 and S2; no rubs, murmurs, or gallops ABDOMEN: Abdomen soft, non-tender, BS normal, No masses or organomegaly EXTREMITIES: Extremities normal, no deformities, edema, clubbing or skin discoloration. Good capillary refill., No ulcers Lines, Drains, and Airways Line Duration Peripheral 09/02/24 0459 [facility] Right 20 Gauge 2 days Peripheral 09/02/24 [facility] Short Left Foot 22 Gauge 2 days Drain Duration Small Bowel Ostomy 08/18/24 RLQ 16 days External Collection Device 09/02/241999 1 day Reviewed lines and needs to be continued: REASONS: Intravenous fluids, Telemetry, and Electrolyte replacement DATA: Diagnostic tests reviewed for today's visit: Most recent labs Most recent imaging Assessment/Plan Problem List Assessment AND Plan Acute deep vein thrombosis (DVT) of left upper extremity (HCC) Mood disorder (HCC) On total parenteral nutrition (TPN) Malnutrition of moderate degree (HCC) Crohn's colitis, with intestinal obstruction (HCC) Acute deep vein thrombosis (DVT) of axillary vein of right upper extremity (HCC) High output ileostomy (HCC) Acute deep vein thrombosis (DVT) of left upper extremity, unspecified vein (HCC) Principal Problem: Acute deep vein thrombosis (DVT) of left upper extremity (HCC): POA. acute DVT LUE PICC line location. Recurrent. - Hem/Onc consulted and per Dr. Lorenzo, Patient has continued to have clots at the site of her PICC line. At this point I feel she may need possibly different vascular access with plans to do TPN or long-term. May be a Reece or a port needs to be placed. Because this was a provoked clot I recommend continuing heparin while she is here in the hospital and then when she is discharged please turn her on Eliquis for total of 3 months. I do recommend a starters pack when she is discharged. - Discussed with IR radio television announcer today, Wilburvictor manuel (more content not included)... [facility] 09-03-2024 Note HNO ID: [id number] Author: JOSE RICE MD Service: Hospital Medicine Author Type: Physician Type: Progress Notes Filed: 09/03/2024 19:26 Note Text: DEPARTMENT OF HOSPITAL MEDICINE PROGRESS NOTE SERVICE DATE: 09/03/2024 SERVICE TIME: 7:01 PM Hospital Medicine/Primary Attending: Jose Rice MD NIGHT AND WEEKEND COVERAGE: [employer]EN COVERAGE: Days: [phone], please contact via [employer] Nights: [phone] - 3rd floor: please page [facility] Hospitalist night cover [phone] - 4W: please page [facility] Hospitalist night cover #[phone] - 5th floor: please page Hospitalist night cover #[phone] - SDU (17:00 - 19:00): Please page #[phone] - SDU (19:00 - 07:00): Please call [facility] at [phone] Subjective INTERVAL HPI: Pt seen and examined. Says she feels a little better today. Denies any new acute concerns or complaint. Discussed with IR radio television announcer today, Reece to be placed by IR tomorrow with removal of PICC line. Discussed POC. All questions answered. Current Facility-Administered Medications Medication Dose Route Frequency heparin iv infusion 25,000 units in NaCl 0.45% 250 mL STANDARD NOMOGRAM 0-3,000 Units/hr INTRAVENOUS CONTINUOUS And heparin RATE CHANGE bolus 1,000-10,000 Units for subtherapeutic PTTAC results 1,000-10,000 Units INTRAVENOUS PRN NaCl 0.9% iv flush bag 20 mL INTRAVENOUS PRN diazePAM 5 mg tab(s) (VALIUM) 5 mg ORAL q 6 H PRN oxyCODONE IR 5-10 mg tab(s) (ROXICODONE) 5-10 mg ORAL q 6 H PRN diphenoxylate-atropine 2.5-0.025 mg 2 tablet (LOMOTIL) 2 tablet ORAL AC and HS loperamide 4 mg cap(s) (IMODIUM) 4 mg ORAL AC and HS calcium polycarbophil 625 mg tab(s) (FIBERCON) 625 mg ORAL BID dicyclomine 10 mg cap(s) (BENTYL) 10 mg ORAL TID lactobacillus rhamnosus 10 billion cell (CULTURELLE) capsule 1 capsule ORAL DAILY ondansetron (PF) 4 mg injection (ZOFRAN) 4 mg INTRAVENOUS q [address] 40 mg tab(s) (PROTONIX) 40 mg ORAL DAILY (6 AM) amitriptyline 25 mg tab(s) (ELAVIL) 25 mg ORAL AT BEDTIME acetaminophen 1,000 mg tab(s) (TYLENOL) 1,000 mg ORAL q 6 H PRN citalopram 40 mg tab(s) (CeleXA) 40 mg ORAL DAILY gabapentin 300 mg cap(s) (NEURONTIN) 300 mg ORAL TID hydrOXYzine HCl 25 mg tab(s) (ATARAX) 25 mg ORAL TID PRN HYDROmorphone 0.2 mg injection (DILAUDID) 0.2 mg INTRAVENOUS q 4 H PRN LORazepam 0.5 mg injection (ATIVAN) 0.5 mg INTRAVENOUS q 4 H PRN Parenteral Nutrition Adult 3 in 1 with SMOFlipid INTRAVENOUS ONCE PN (0 START) dextrose 5% in NaCl 0.45% iv infusion 30-150 mL/hr INTRAVENOUS PRN ferric gluconate 125 mg in NaCl 0.9% 100 mL (FERRLECIT) 125 mg INTRAVENOUS DAILY AT 6 PM NaCl 0.9% iv infusion 75 mL/hr INTRAVENOUS CONTINUOUS midodrine 10 mg tab(s) (PROAMITINE) 10 mg ORAL TID Objective PHYSICAL EXAM: BP 121/82 Pulse 102 Temp (Src) 98.1 (Oral) Resp 18 Wt 110 lb 10.7 oz (50.2kg) SpO2 98% O2 Therapy: Room Air Physical Exam Performed GENERAL: Alert, no distress, cooperative HEAD/SINUSES: No significant findings EYES: PERRLA, EOMI LUNGS: Lungs clear to auscultation, Good diaphragmatic excursion CARDIAC: Normal S1 and S2; no rubs, murmurs, or gallops ABDOMEN: Abdomen soft, non-tender, BS normal, No masses or organomegaly EXTREMITIES: Extremities normal, no deformities, edema, clubbing or skin discoloration. Good capillary refill., No ulcers Lines, Drains, and Airways Line Duration Peripheral 09/02/24 0459 [facility] Right 20 Gauge 1 day Peripheral 09/02/24 [facility] Short Left Foot 22 Gauge 1 day Drain Duration Small Bowel Ostomy 08/18/24 RLQ 16 days External Collection Device 09/02/241999 <1 day Reviewed lines and needs to be continued: REASONS: Intravenous fluids, Telemetry, and Electrolyte replacement DATA: Diagnostic tests reviewed for today's visit: Most recent labs Most recent imaging Assessment/Plan Problem List Assessment AND Plan Acute deep vein thrombosis (DVT) of left upper extremity (HCC) Mood disorder (HCC) On total parenteral nutrition (TPN) Severe protein-calorie malnutrition (HCC) Crohn's colitis, with intestinal obstruction (HCC) Acute deep vein thrombosis (DVT) of axillary vein of right upper extremity (HCC) High output ileostomy (HCC) Acute deep vein thrombosis (DVT) of left upper extremity, unspecified vein (HCC) Principal Problem: Acute deep vein thrombosis (DVT) of left upper extremity (HCC): POA. acute DVT LUE PICC line location. Recurrent. - Hem/Onc consulted and per Dr. Lorenzo, Patient has continued to have clots at the site of her PICC line. At this point I feel she may need possibly different vascular access with plans to do TPN or long-term. May be a Reece or a port needs to be placed. Because this was a provoked clot I recommend continuing heparin while she is here in the hospital and then when she is discharged please turn her on Eliquis for total of 3 months. I do recommend a starters pack when she is discharged. - IR (more content not included)... [facility] 09-03-2024 Note HNO ID: [id number] Author: CECILIA WASHBURN MSW Service: Care Management Author Type: Professor Of Historical Theology Type: Care Mgt Initial Assessment Filed: 09/03/2024 10:42 Note Text: CARE MANAGEMENT: ASSESSMENT AND DISCHARGE PLAN SERVICE DATE: September 03, 2024 SERVICE TIME: 10:24 AM PCP: No primary care provider on file. Primary Contact: Extended Emergency Contact Information Primary Emergency Contact: RUKHSANA HUGGINS Mobile Relation: Sister Secondary Emergency Contact: Arthur Victor Mobile Relation: Significant other Admission Status: Inpatient Insurance Provider: [facility] MEDICAID Discharge Planning requested by: Per Department Practice Potential Transition Plans Home Care, Home Care Pharmacy Advance Directives Current Advance Directive: None Power Shovel Operator Attempted to Assist with AD Completion: Yes Action: Education Provided Current Living Arrangements and Support Lives with: Children Type of Residence: Private Residence (Apartment or Condo) Support: Children How do you manage to accomplish the following: Independent: Ambulation, Bathe/Shower, Dress, Meals/Meal Prep, Going to the bathroom, Medication Management, Transportation to appointments/community Current Services/Equipment Current Post-Acute Service(s): DME, Skilled Home Care, Infusion Services Current DME Type: Ostomy supplies Current Post-Acute Service(s) Provider: [facility], an [facility] for TPN, [facility] for home health Discharge Planning Patient Goal(s): General wellness [place] of Choice Explained: [place] of Choice Given: Yes Level of Care Discussed: Home Care Are you interested in bedside delivery of your medications? Discharge Planning Participant(s): Spouse/significant other Patient/Family Comments: Caregiver Assessment: Caregiver is ready, willing and able to meet the patient's needs as recommended by the inter-professional team: No Caregiver needed Transport at Discharge: Transportation Arrangements: Car Destination: home Needs Prior to Discharge: Needs Prior to Discharge: To Be Determined Post-Acute Discharge Plan: Pt active with [facility], an [facility] for TPN and [facility] for HHC. Patient is independent and lives at home with her son. She has ileostomy and supplies. She is active with [facility], an [facility] for TPN and [facility] for HHC. Family will drive her home at DC. CM to remain available for POC and DC planning as needed. SIGNATURE: LLUVIA Leblanc PATIENT NAME: Francine Hobson DATE: September 03, 2024 TIME: 10:24 AM [facility] 09-02-2024 Note HNO ID: [id number] Author: JOSE RICE MD Service: Hospital Medicine Author Type: Physician Type: Plan of Care Filed: 09/02/2024 15:35 Note Text: Katlin Stone CNP from this morning noted Pt also seen and examined by myself today. Briefly, pt is admitted with acute DVT LUE PICC line location. Recurrent. Hem/Onc consulted and per Dr. Lorenzo, Patient has continued to have clots at the site of her PICC line. At this point I feel she may need possibly different vascular access with plans to do TPN or long-term. May be a Reece or a port needs to be placed. Because this was a provoked clot I recommend continuing heparin while she is here in the hospital and then when she is discharged please turn her on Eliquis for total of 3 months. I do recommend a starters pack when she is discharged. IR consulted STAT to place line and nutrition consulted for assessment and TPN. Continue currrent rx and continue to monitor. [facility] 09-01-2024 Note HNO ID: [id number] Author: MINDI REBOLLEDO RT(R) Service: Radiology Author Type: Technologist Type: Progress Notes Filed: 09/01/2024 18:49 Note Text: Radiology Service Progress Note PATIENT NAME: Francine Hobson DATE OF SERVICE: September 01, 2024 TIME: 6:48 PM PATIENT IDENTITY VERIFICATION COMPLETED USING TWO (2) IDENTIFIERS: Name and Date of confirmed by patient verbally. FALL SCREENING: Has the patient had 2 falls in the last year or 1 fall with injury or currently using an Ambulatory Assistive Device (Walker, Cane, Wheelchair, Crutches, etc.)? Emergency Room Patient: Screened in ED PATIENT GENDER DATA: Assigned female at . status: Unknown status: N/A PATIENT RELEVANT IMPLANT DATA REVIEWED: Not Applicable PATIENT PRESENTS WITH AN IMPLANTABLE OR ATTACHED DIGITAL CONTENT PRODUCER: No RADIOLOGY DEPARTMENT: Ultrasound PERIPHERAL IV DATA: Not applicable SIGNED BY: RT Tobi(R) September 01, 2024 6:48 PM [facility] 08-31-2024 Telephone encounter Note Called and talked to pt and her , last pm the purple lumen could not flush, did not want to force a flush; the red lumen flushed and infused TPN. Did call [facility] nurse and they said would need cathflo. Confirmed that pt said flushes lumen uses with 10 ml NS before use and 20 ml after and flushes unused lumen once daily, removed should flush unused one twice daily. Cathflo order faxed to [facility]fax [phone]. Also asking for extension sets for line so pt can do own care and flushing needs. Will call [facility] on that. Called [facility], they said pt uses [facility], faxed cathflo order to them and talked to Pharmacist about extension sets, they said did send 2 with delivery on 08/30 and also that cathflo is not covered by insurance, will see if pt wants to pay out of pocket and if not, what should they do, said need to call our team but also should then go to ER for line needs. Darlene Solis, RN [facility] 08-31-2024 Miscellaneous Notes Called and talked to pt and her , last pm the purple lumen could not flush, did not want to force a flush; the red lumen flushed and infused TPN. Did call HC nurse and they said would need cathflo. Confirmed that pt said flushes lumen uses with 10 ml NS before use and 20 ml after and flushes unused lumen once daily, removed should flush unused one twice daily. Cathflo order faxed to [facility]fax [phone]. Also asking for extension sets for line so pt can do own care and flushing needs. Will call [facility] on that. Called [facility], they said pt uses [facility], faxed cathflo order to them and talked to Pharmacist about extension sets, they said did send 2 with delivery on 08/30 and also that cathflo is not covered by insurance, will see if pt wants to pay out of pocket and if not, what should they do, said need to call our team but also should then go to ER for line needs. Darlene Solis, RN Spouse called to let the office know the pt has a clogged line and needs cath juaquin. They have spoken to her home care. [phone] documented in this encounter [facility] 08-31-2024 Telephone encounter Note Spouse called to let the office know the pt has a clogged line and needs cath juaquin. They have spoken to her home care. [phone] [facility] 08-30-2024 Note [facility] 08-29-2024 Note [facility] 08-28-2024 Note [facility] 08-28-2024 Note [facility] 08-27-2024 Note [facility] 08-26-2024 Note [facility] 08-25-2024 Note [facility] 08-24-2024 Note [facility] 08-23-2024 Note [facility] 08-23-2024 Note [facility] 08-22-2024 Note [facility] 08-21-2024 Note [facility] 08-21-2024 Note [facility] 08-20-2024 Note [facility] 08-20-2024 Note [facility] 08-20-2024 Note [facility] 08-19-2024 Note [facility] 08-18-2024 Note [facility] 08-18-2024 Note [facility] 08-18-2024 Note [facility] 08-18-2024 Note [facility] 08-18-2024 Note [facility] 08-17-2024 Note [facility] 08-16-2024 Telephone encounter Note Images from the original note were not included. Armand Rios MD, PhD to Me 08/16/24 3:20 PM Thank you for the updateGloria. I agree with ER referral. Very sick patient. KAY Hobbs LPN [facility] 08-16-2024 Miscellaneous Notes Images from the original note were not included. Armand Rios MD, PhD to Me 08/16/24 3:20 PM Thank you for the update, Gloria. I agree with ER referral. Very sick patient. KAY Hobbs LPN Received call from patient who is reporting she is having severe abdominal pain, she has been unable to move off her couch since Wednesday. BM per day: last BM yesterday small amount reports normally she has very loose stools large amounts Tenesmus: positive Stool consistency: soft formed Passing gas: barely reports gas builds up and then does not come out Abdominal distention: positive Abdominal pain: 9/10 Type of pain: sharp, twisting Location/Constant/Intermittent: mid abdomen, constant Does it radiate anywhere: yes further down to pelvis Fever/Night Sweats/Chills: denies Fatigue: positive Nausea: positive Vomiting: positive Appetite: poor unable to keep anything down except water not staying hydrated denies any urine today, reports her nurse gave her 1 bag of fluids but still not producing urine. Patient was advised to proceed to ER for further evaluation patient verbalized understanding and stated she will be coming into main [place] ER. Please advise Gloria Hobbs LPN documented in this encounter [facility] 08-16-2024 Telephone encounter Note Received call from patient who is reporting she is having severe abdominal pain, she has been unable to move off her couch since Wednesday. BM per day: last BM yesterday small amount reports normally she has very loose stools large amounts Tenesmus: positive Stool consistency: soft formed Passing gas: barely reports gas builds up and then does not come out Abdominal distention: positive Abdominal pain: 9/10 Type of pain: sharp, twisting Location/Constant/Intermittent: mid abdomen, constant Does it radiate anywhere: yes further down to pelvis Fever/Night Sweats/Chills: denies Fatigue: positive Nausea: positive Vomiting: positive Appetite: poor unable to keep anything down except water not staying hydrated denies any urine today, reports her nurse gave her 1 bag of fluids but still not producing urine. Patient was advised to proceed to ER for further evaluation patient verbalized understanding and stated she will be coming into main [place] ER. Please advise Gloria Hobbs LPN [facility] 08-08-2024 Note [facility] 08-08-2024 Note [facility] 08-07-2024 Note [facility] 08-07-2024 Telephone encounter Note Called spoke with patient who accepted 08/22/24 11:[address] Hoover in person. Patient is scheduled for the CTe 08/22/24 9:00 am. This add on clinic is not yet opened in [facility]. Patient will be added once opened. Gloria Hobbs LPN [facility] 08-07-2024 Miscellaneous Notes Called spoke with patient who accepted 08/22/24 11:[address] Hoover in person. Patient is scheduled for the CTe 08/22/24 9:00 am. This add on clinic is not yet opened in [facility]. Patient will be added once opened. Gloria Hobbs LPN Images from the original note were not included. Armand Rios MD, PhD Gloria Hobbs LPN Hi Gloria, I didn't want to cause confusion, but she will need CBC, CMP, CRP and CTE on 08/22. Can we make a note to help coordinate. She will probably be discharged on Wednesday. Thanks, MB Orders pended to assist with scheduling CTe for 08/22/24 for follow up. Please advise Gloria Hobbs LPN documented in this encounter [facility] 08-07-2024 Note [facility] 08-06-2024 Note [facility] 08-05-2024 Note [facility] 08-04-2024 Note [facility] 08-04-2024 Telephone encounter Note Images from the original note were not included. Armand Rios MD, PhD Gloria Hobbs LPN Hi Gloria, I didn't want to cause confusion, but she will need CBC, CMP, CRP and CTE on 08/22. Can we make a note to help coordinate. She will probably be discharged on Wednesday. Thanks, MB Orders pended to assist with scheduling CTe for 08/22/24 for follow up. Please advise Gloria Hobbs LPN [facility] 08-04-2024 Note [facility] 08-03-2024 Note [facility] 08-03-2024 Note HNO ID: [id number] Author: CAMILLA YANES RN Service: Nursing Author Type: Registered Nurse Type: Nursing Progress Note Filed: 08/03/2024 19:24 Note Text: Other: Pt refusing BGL. Pt states that she will do one at 0000 this evening. [facility] 08-03-2024 Note [facility] 08-02-2024 Note [facility] 08-02-2024 Note HNO ID: [id number] Author: BRIAN JANE RN Service: Nursing Author Type: Registered Nurse Type: Progress Notes Filed: 08/02/2024 00:22 Note Text: Pt refused blood sugar check [facility] 08-01-2024 Note [facility] 08-01-2024 Note [facility] 07-30-2024 Hospital Discharge instructions Dhara Shelby RN - 07/30/2024 11:23 AM EST Please continue to take your medication as prescribed, continue midodrine 10 mg 3 times daily to support your blood pressure, continue to check your blood pressure regularly and follow-up with the primary doctor within 3 to 4 days of discharge to follow-up your blood pressure, continue IV antibiotic as recommended by your infectious disease doctor, and follow-up with the [facility] as soon as possible Pt instructed to return to Emergency room tomorrow if [facility] does not admit her to get IV antibiotics documented in this encounter [facility] 07-30-2024 History of Present illness Narrative Giving pt Iv antibiotics Pts boyfriend came in demanding to see the dr now Boyfriend stated he needs her dc so he can take her to [facility] himself. Dr Lucas perfect served and here to see pt and boyfriend. Industrial Technician walked out of room when blog writer returned pts boyfriend disconnected pt from TPN. Pt and Pts boyfriend yelling loudly at Dr and stating she needs to be dc . Dr Casiano stated to pt and boyfriend she need to make sure she was medically stable. Which included bp stable and antibiotics can be arranged for home. Retook bp 119/82 . Industrial Technician talked with Dr Grover per phone and Dr Grover stated if antibiotics can arranged for home she knows it wont happen till tomorrow because its Wednesday so if pt not admitted to [facility] she will have antibiotics set up for home DC mission planner talked with pt and boyfriend and gave home care option. Pt agreeable to come to Er tomorrow for IV antibiotics if [facility] does not admit her and home antibiotics can not be arranged Talked with Dr Brito on phone and informed her above of Dr grover and dc mission planner talking to pt. Dr Lucas stated she would dc pt. Pt given dc instructions and verbalized understanding. Pt dc by private car. And boyfriend pt left with all belongings pt left at 1157am Comprehensive Nutrition Assessment Type and Reason for Visit: Reassess Nutrition Recommendations/Plan: Custom TPN @ 55ml/hr + 250ml lipids/day (provides: 1500kcals, 200g dextrose, 80g protein). Will monitor labs and modify TPN prn. Monitor weight, labs, GI status. Malnutrition Assessment: Malnutrition Status: Severe malnutrition (07/21/24 1445) Context: Chronic Illness Findings of the 6 clinical characteristics of malnutrition: Energy Intake: 75% or less estimated energy requirements for 1 month or longer Weight Loss: Mild weight loss Body Fat Loss: Mild body fat loss Orbital, Buccal region Muscle Mass Loss: Severe muscle mass loss Clavicles (pectoralis & deltoids), Hand (interosseous), Calf (gastrocnemius) Fluid Accumulation: No fluid accumulation Inspector Materials And Processes Strength: Not Performed Nutrition Assessment: Follow up for TPN managenet. TPN/IL to continue. Labs reviewed: Ca 8.5. Meds reviewed. Nutrition Related Findings: LBM 07/27. Hypoactive bowel sounds. Wound Type: None Current Nutrition Intake & Therapies: Average Meal Intake: NPO Average Supplements Intake: NPO Diet NPO Exceptions are: Sips of Water with Meds PN-Adult 2-in-1 Central Line (Standard) Current Parenteral Nutrition Orders: Type and Formula: 2-in-1 Custom Lipids: 250ml Duration: Continuous Rate/Volume: 55ml/hr Current PN Order Provides: Provides 1500 kcals, 80 gm protein per day. Anthropometric Measures: Height: 170.2 cm (5' 7.01 ) [place] Body Weight (IBW): 135 lbs (61 kg) Admission Body Weight: 53.7 kg (118 lb 6.2 oz) Current Body Weight: 52.4 kg (115 lb 8.3 oz), 85.6 % IBW. Weight Source: Bed scale Current BMI (kg/m2): 18.1 Usual Body Weight: 58.1 kg (128 lb) (per pt report) % Weight Change (Calculated): -10.1 Weight Adjustment For: No Adjustment BMI Categories: Underweight (BMI less than 22) age over 65 Estimated Daily Nutrient Needs: Energy Requirements Based On: Kcal/kg Weight Used for Energy Requirements: Admission Energy (kcal/day): 9321-4101 kcals/day Weight Used for Protein Requirements: Admission Protein (g/day): 60-80 gm pro/day Method Used for Fluid Requirements: ml/Kg Fluid (ml/day): 35 mL/kg = 1448-5584 mL/day or per MD Nutrition Diagnosis: Severe malnutrition, in context of chronic illness related to inadequate protein-energy intake as evidenced by criteria as identified in malnutrition assessment, poor intake prior to admission Inadequate oral intake related to altered GI function as evidenced by nutrition support - parenteral nutrition Nutrition Interventions: Food and/or Nutrient Delivery: Continue NPO, Modify Parenteral Nutrition Nutrition Education/Counseling: No recommendation at this time Coordination of Nutrition Care: Continue to monitor while inpatient Plan of Care discussed with: RN; Patient Goals: Goals: Meet at least 75% of estimated needs, Tolerate nutrition support at goal rate Type of Goal: Continue current goal Previous Goal Met: Goal(s) Achieved Nutrition Monitoring and Evaluation: Behavioral-Environmental Outcomes: None Identified Food/Nutrient Intake Outcomes: Diet Advancement/Tolerance, Parenteral Nutrition Intake/Tolerance Physical Signs/Symptoms Outcomes: Biochemical Data, GI Status, Meal Time Behavior, Weight Discharge Planning: Too soon to determine Jose Manuel Nicole RD Contact: [phone] Received call from patient's SOArthur, wanting to talk to the casino floor runner. He is upset that the patient was told yesterday that the patient could leave to go another hospital and it would be a discharge, not an AMA. Industrial Technician advises Arthur that the best person for information is the primary nurse, Dhara. He asks who is responsible for the patient's discharge. Industrial Technician advises the admitting doctor is Dr. Lucas and she makes the determination if patient is safe for discharge. If the patient isn't medically stable for discharge then Dr. Armendariz will not place a discharge order. Arthur than reports that some doctor told them yesterday that the patient could leave here and go to another ER and it wouldn't be an AMA. He further says he will be here in 2 - 2 1/2 hrs and will start disconnecting her lines. Industrial Technician advises the best thing to do is for him, the patient, and the doctor to have a discussion when he arrives. Primary nurse, Dhara, will notify DR. Armendariz when Arthur arrives for discussion. Arthur verbalizes understanding. Pt refusing lovenox shots and telemetry. And blood sugars. Pt educated on importance of above still refusing Dr Lucas here and notified Received call from Nurse Access- no bed available at [facility]. When doing bedside report . Pt states Im leaving after my 10am antibiotic since they do not have bed at [facility] yet. My brother and boy friend are coming to get me to take me to [facility] ER at 1030am. Dr Eller here and talked to pt and explained to pt she can not discharge her rt still needs TPN and antibiotics . She stated if they could arrange TPN and antibiotics for home she would dc her. Notified Dc mission planner refer to her note. Pt states she is leaving after antibiotic is given and leaving to [facility] Patient refused accu check. Education provided patient continue to refuse. [facility] called to say they do not have a bed. Images from the original note were not included. [facility] Office: [phone] Marco Delarosa DO, Dominic Gonzalez DO, Clifton Blanc, DO, Froylan Snwoden, DO, Paula Jensen MD, Radha Greer MD, Nitish Parra MD, Maya Hernández MD, Porfirio García MD, Norma Smith MD, Tanya Mercado MD, Eloy Alves, DO, Heidi Roche MD, Arthur Schroeder MD, Jose Manuel Delarosa, DO, Shikha Pastrana MD, Obed Lilly, DO, Rosangela Koehler MD, Alysa De Santiago MD, Dianne Agudelo MD, Judith Nicole MD, London Morales MD, Gamal Granger MD, Abby Salgado MD, Nereyda Lucas MD, Dru Shannon MD, Shahid Reddy MD, Ashley Schaffer, DO, Cruzito Holloway MD, Eloy Valentin MD, Tony Valentin MD, Alix Acosta, BROACH TROUBLE SHOOTER, Shefali Hills, BROACH TROUBLE SHOOTER, Ashley Baker, BROACH TROUBLE SHOOTER, Muna Brandon, DNP, Neida Mars, BROACH TROUBLE SHOOTER, Jigna De Dios, BROACH TROUBLE SHOOTER, Angelina Peguero, BROACH TROUBLE SHOOTER, Adwoa Lei, BROACH TROUBLE SHOOTER, Carmen Wray PAOliviaC, Kathy Apple PAOliviaC, Jaz Castaneda, BROACH TROUBLE SHOOTER, Robert Huertas, BROACH TROUBLE SHOOTER, Vanessa Saleh, BROACH TROUBLE SHOOTER, Philly Mcgarry, BROACH TROUBLE SHOOTER, Josefina Higgins, BROACH TROUBLE SHOOTER, Chanel Mccullough, AIRBRUSH ARTIST TECHNICAL, Ghassan Schwartz, BROACH TROUBLE SHOOTER, Lissett Root, BROACH TROUBLE SHOOTER, Lu Cooley, BROACH TROUBLE SHOOTER [facility] IN-PATIENT SERVICE [facility] Progress Note 07/29/2024 12:36 PM Name: Francine Hobson Acct: [id number] Room: [facility]/0243-01 Day: 10 Admit Date: 07/19/2024 12:43 PM PCP: Dalia Apple DO Code Status: Full Code Subjective: C/C: Chief Complaint Patient presents with Abdominal Pain Vomiting Interval History Status: not changed. Patient was seen and examined at time of my evaluation patient continues worsening of abdominal pain and review tenderness on exam, will check x-ray abdomen and lactic acid discussed with RN at bedside Lab vital sign consultants note reviewed Awaiting transfer to [facility] Brief History: Per documentation This is a 38-year-old female with a history of Crohn's disease who presents to the hospital for evaluation of small bowel obstruction as well as for management of abdominal abscess. CT scan showed pathologically dilated small bowel upstream from a long segment of small bowel stricture with wall thickening and perienteric inflammatory changes consistent with a partial obstruction. She also had moderate volume of free fluid in the pelvis in addition to several fluid collection Review of Systems: Review of Systems Constitutional: Positive for fatigue. Negative for appetite change and fever. HENT: Negative for sore throat and trouble swallowing. Eyes: Negative for visual disturbance. Respiratory: Negative for cough, shortness of breath and wheezing. Cardiovascular: Negative for chest pain, palpitations and leg swelling. Gastrointestinal: Positive for abdominal pain and diarrhea. Negative for blood in stool, constipation, nausea and vomiting. Endocrine: Negative for polydipsia and polyuria. Genitourinary: Negative for decreased urine volume, difficulty urinating, dysuria, flank pain, frequency, hematuria and urgency. Musculoskeletal: Negative for back pain, gait problem and joint swelling. Skin: Negative for color change, rash and wound. Allergic/Immunologic: Negative for immunocompromised state. Neurological: Negative for dizziness, syncope, speech difficulty, weakness, light-headedness, numbness and headaches. Hematological: Negative for adenopathy. Psychiatric/Behavioral: Negative for agitation, behavioral problems and sleep disturbance. The patient is not nervous/anxious. Medications: Allergies: Allergies Allergen Reactions Gluten Can not have due to Crohns Motrin [Ibuprofen] Can not have due to Crohns Nsaids Can not have due to Crohns Milk (Cow) Diarrhea Current Meds: Scheduled Meds: midodrine 10 mg Oral TID WC fat emulsion 250 mL IntraVENous Daily piperacillin-tazobactam 3,375 mg IntraVENous Q8H citalopram 40 mg Oral Daily sodium chloride flush 5-40 mL IntraVENous 2 times per day pantoprazole (PROTONIX) 40 mg in sodium chloride (PF) 0.9 % 10 mL injection 40 mg IntraVENous Daily enoxaparin 40 mg SubCUTAneous Daily Continuous Infusions: PN-Adult 2-in-1 Central Line (Standard) PN-Adult 2-in-1 Central Line (Standard) 55 mL/hr at 07/28/24 1752 sodium chloride 100 mL/hr at 07/29/24 0435 sodium chloride 25 mL/hr at 07/25/24 0016 PRN Meds: ketorolac, oxyCODONE-acetaminophen, hyoscyamine, hydrOXYzine HCl, phenol, sodium chloride flush, sodium chloride, potassium chloride OR potassium alternative oral replacement OR potassium chloride, ondansetron OR ondansetron, acetaminophen OR acetaminophen, melatonin Data: Past Medical History: has a past medical history of Crohn disease (HCC). Social History: reports that she has quit smoking. Her smoking use included cigarettes. She has never used smokeless tobacco. She reports that she does not currently use alcohol. She reports that she does not currently use drugs after having used the following drugs: Marijuana ([place]). Family History: History reviewed. No pertinent family history. Vitals: BP 105/66 Pulse 61 Temp 98.1 F (36.7 C) (Oral) Resp 16 Ht 1.702 m (5' 7.01 ) Wt 55.5 kg (122 lb 5.7 oz) LMP 07/04/2024 (Approximate) SpO2 100% BMI 19.16 kg/m Temp (24hrs), Av F (36.7 C), Min:97.5 F (36.4 C), Max:98.4 F (36.9 C) Recent Labs 07/29/24 0657 POCGLU 72 I/O (24Hr): No intake or output data in the 24 hours ending 07/29/24 1236 Labs: Hematology: Recent Labs 07/28/24 0812 WBC 5.0 RBC 3.98 HGB 11.0* HCT 35.8* MCV 89.9 MCH 27.6 MCHC 30.7 RDW 16.0* PLT 222 MPV 11.4 Chemistry: Recent Labs 07/27/24 0637 07/28/24 0812 07/29/24 0631 NA 137 139 139 K 4.3 5.0 4.8 CL 102 105 107 CO2 26 27 22 GLUCOSE 91 90 72* BUN 8 10 13 CREATININE 0.5* 0.5* 0.6 MG 2.5 2.3 2.2 ANIONGAP 9 7* 10 LABGLOM >90 >90 >90 CALCIUM 8.8 9.2 8.5* PHOS 4.4 4.1 3.9 Recent Labs 07/29/24 0657 POCGLU 72 ABG:No results found for: POCPH , PHART , PH , POCPCO2 , TED0VVW , PCO2 , POCPO2 , PO2ART , PO2 , POCHCO3 , MYA0OBB , HCO3 , NBEA , PBEA , BEART , BE , THGBART , THB , TXY4FFX , OWDZ7KGN , X5TIITXA , O2SAT , FIO2 Lab Results Component Value Date/Time SPECIAL Site: Body Fluid 05/03/2024 06:05 PM Lab Results Component Value Date/Time CULTURE POSITIVE Fluid Culture 05/03/2024 06:05 PM CULTURE 05/03/2024 06:05 PM DIRECT GRAM STAIN FROM BOTTLE: GRAM POSITIVE COCCI IN CHAINS CULTURE (A) 05/03/2024 06:05 PM VIRIDANS STREPTOCOCCUS GROUP Identified as : STREPTOCOCCUS ANGINOSUS Identification by MALDI-TOF CULTURE 05/03/2024 06:05 PM (NOTE) Direct Gram Stain from bottle result called to and read back by:WAQAS De Guzman 05/04/24 1750 Radiology: XR ABDOMEN FOR NG/OG/NE TUBE PLACEMENT Result Date: 07/21/2024 Enteric catheter tip terminates in the mid to distal gastric body. XR ABDOMEN (KUB) (SINGLE AP VIEW) Result Date: 07/20/2024 Dilated small bowel loops seen in left upper quadrant suggest ileus or partial obstruction. Contrast seen throughout the colon excluding complete obstruction. CT ABDOMEN PELVIS W IV CONTRAST Additional Contrast? Oral Result Date: 07/19/2024 Pathologically dilated small bowel upstream from a long segment small bowel stricture with wall thickening and perienteric inflammatory change. Findings consistent with partial obstruction There are several interloop fluid collections as described likely representing abscesses. Moderate volume of free fluid also noted in the pelvis. Physical Examination: Physical Exam Constitutional: General: She is not in acute distress. Appearance: Normal appearance. HENT: Head: Normocephalic and atraumatic. Mouth/Throat: Mouth: Mucous membranes are moist. Eyes: General: No scleral icterus. Extraocular Movements: Extraocular movements intact. Pupils: Pupils are equal, round, and reactive to light. Cardiovascular: Rate and Rhythm: Normal rate and regular rhythm. Heart sounds: No murmur heard. Pulmonary: Effort: No respiratory distress. Breath sounds: No wheezing or rales. Abdominal: General: There is no distension. Tenderness: There is abdominal tenderness. There is no rebound. Comments: Tenderness mainly in the lower abdomen Musculoskeletal: General: No tenderness or deformity. Cervical back: Normal range of motion. No rigidity or tenderness. Right lower leg: No edema. Left lower leg: No edema. Skin: Coloration: Skin is not jaundiced. Findings: No lesion or rash. Neurological: General: No focal deficit present. Mental Status: She is alert and oriented to person, place, and time. Sensory: No sensory deficit. Motor: No weakness. Psychiatric: Mood and Affect: Mood normal. Assessment: Hospital Problems Last Modified POA * (Principal) Crohn's colitis, unspecified complication (HCC) 07/19/2024 Yes Partial intestinal obstruction (HCC) 07/20/2024 Yes Crohn's disease of colon with complication (HCC) 07/19/2024 Yes Generalized abdominal pain 07/19/2024 Yes Nausea and vomiting 07/20/2024 Yes Abdominal pain, epigastric 07/23/2024 Yes Plan: Abdominal pain likely due to Crohn disease complicated by stricturing, partial small bowel obstruction, GI is following recommended to keep patient n.p.o., TPN and to transfer the patient to [facility] to be evaluated by IBD GI IBD surgeon and agriculture research director, awaiting transfer to [facility], worsening of abdominal pain today will check x-ray abdomen Continue IV Zosyn Hypotension continue IV fluid, midodrine, monitor blood pressure, increase midodrine to 10 3 times daily and increase rateof IV fluid Symptomatic management Continue pantoprazole DVT prophylaxis IV fluid Nereyda Lucas MD 07/29/2024 12:36 PM Comprehensive Nutrition Assessment Type and Reason for Visit: Reassess Nutrition Recommendations/Plan: Custom TPN @ 55ml/hr + 250ml lipids per day (1500kcals, 200g dextrose, 80g protein). Monitor labs and modify TPN as needed. Will monitor POC. Malnutrition Assessment: Malnutrition Status: Severe malnutrition (07/21/24 1445) Context: Chronic Illness Nutrition Assessment: Follow up for TPN management. Noted additional IV fluids in place. BM 07/27. Meds reviewed. Labs reviewed: glucose 72, 90, 91. Nutrition Related Findings: Hypoactive bowel sounds. LBM 07/27. Wound Type: None Current Nutrition Intake & Therapies: Average Meal Intake: NPO Average Supplements Intake: NPO PN-Adult 2-in-1 Central Line (Standard) Diet NPO Exceptions are: Sips of Water with Meds Current Parenteral Nutrition Orders: Type and Formula: 2-in-1 Custom Lipids: 250ml Duration: Continuous Rate/Volume: 55ml/hr Current PN Order Provides: Provides 1500 kcals, 80 gm protein per day. Goal PN Orders Provides: Anthropometric Measures: Height: 170.2 cm (5' 7.01 ) [place] Body Weight (IBW): 135 lbs (61 kg) Admission Body Weight: 53.7 kg (118 lb 6.2 oz) Current Body Weight: 52.4 kg (115 lb 8.3 oz), 85.6 % IBW. Weight Source: Bed scale Current BMI (kg/m2): 18.1 Usual Body Weight: 58.1 kg (128 lb) (per pt report) % Weight Change (Calculated): -10.1 Weight Adjustment For: No Adjustment BMI Categories: Underweight (BMI less than 22) age over 65 Estimated Daily Nutrient Needs: Energy Requirements Based On: Kcal/kg Weight Used for Energy Requirements: Admission Energy (kcal/day): 9798-3728 kcals/day Weight Used for Protein Requirements: Admission Protein (g/day): 60-80 gm pro/day Method Used for Fluid Requirements: ml/Kg Fluid (ml/day): 35 mL/kg = 8098-9606 mL/day or per MD Nutrition Diagnosis: Severe malnutrition, in context of chronic illness related to inadequate protein-energy intake as evidenced by criteria as identified in malnutrition assessment, poor intake prior to admission Inadequate oral intake related to altered GI function as evidenced by nutrition support - parenteral nutrition Nutrition Interventions: Food and/or Nutrient Delivery: Continue NPO, Modify Parenteral Nutrition Nutrition Education/Counseling: No recommendation at this time Coordination of Nutrition Care: Continue to monitor while inpatient Plan of Care discussed with: RN; Patient Goals: Goals: Meet at least 75% of estimated needs, Tolerate nutrition support at goal rate Type of Goal: Continue current goal Previous Goal Met: Goal(s) Achieved Nutrition Monitoring and Evaluation: Behavioral-Environmental Outcomes: None Identified Food/Nutrient Intake Outcomes: Diet Advancement/Tolerance, Parenteral Nutrition Intake/Tolerance Physical Signs/Symptoms Outcomes: Biochemical Data, GI Status, Meal Time Behavior, Weight Discharge Planning: Too soon to determine Jose Manuel Nicole RD Contact: [phone] Images from the original note were not included. [facility] - Infectious diseases evaluation admission date 07/19/2024 Reason for consultation: Intra-abdominal abscess Impression : Interloop multiple abscess on CT 07/19/24 Did have 05/01/24 multiloculated abscesses - IR - strep anginosus - no drain left in place Treated w augmentin then cipro and flagyl outpt till 07/20/24 CRP elevated 47 Currently partial small bowel obstruction Crohn's Disease 06/05/2024 colonscopy biopsy of rectum moderate to sever active ileitis with erosion and ulceration PSHx: Ileo-cecal resection 2012 Discussion / summary of stay / plan of care/ Recommendations: IR - abscess not accessible Disc w IR -all are much better in size compared to April CTAP Left small fluid collection w an ovarian cyst- and 3 smaller Improved abscesses., largest 2.5 cm on the right pelvis above the uterus, interloop Has flare from the IBD-with some reactive fluid in the anterior pelvic from the IBD No bowel fistula seen on CTAP GI placed on NPO. Patient not tolerating PO and nauseous after dilaudid 07/24 Tentative plan for [facility], d/c with primary HENCE: The patient will continue on intravenous antimicrobial therapy with Zosyn while hospitalized There are current plans for the patient to be transferred to the [facility] for consideration of surgery If the patient ends up being discharged home the plan will be to switch to IV ertapenem to complete a 28-day course of therapy then CTAP - reconsiled Office f/up in [address] Grover for infection. Please call [phone] for appointment . Infection Control Recommendations [place] Precautions Contact isolation Antimicrobial Stewardship Recommendations Simplification of therapy Targeted therapy History of Present Illness: Initial history: Francine Hobson is a 38 y.o.-year-old female with PMHx of chron's disease with recurent perirectal abscess presenting with sudden abdominal pain, nausea, and vomitting. She has been in a persistent chron's flair since hospital discharge 05/2024 after treatment for a perirectal abscess. She underwent aspiration and drainage which was cultured as Strep anginosus, received zosyn 8 days and completed augmentin 875 po bid for 2 weeks outpatient per consultation with Dr. Scanlon. She subsequently followed up with Dr. Maguire who prescribed 2 months course of cipro and flagy completed one week ago. She has utilized medications for symptoms management but no anti-inflammatory or biologic therapy from concern of her rectal abscess. She is planning on consultation with the [facility] but has not done so yet. Her abd pain nausea and vomitting has worsened in the past week but suddenly 4 am 07/19 completed limited her function delaying ED presentation. She is tolerated PO intake with liquids, having liquid stools. She is a prior smoker. CT was obtained 07/19 demonstrating Pathologically dilated small bowel upstream from a long segment small bowel stricture with wall thickening and perienteric inflammatory change. Findings consistent with partial obstruction There are several interloop fluid collections as described likely representing abscesses. GI, Gen surg, and colorectal surgery were subsequently consulted for management. Infectious disease was consulted for guidance on antibiotic therapy given past treatment for intraabdominal infections Interval changes 07/29/202407/22 Patient not agreeable to NG tube Pulled it out Reports she had one episode of stool last night Cannot remember whether it was runny or formed GI panel pending Stool calprotectin pending 07/24 Unintended pureed diet lead to nausea 07/23, required zofran. BM liquid diarrhea 07/23, flatus. Started on TPN 07/23 and was able to shower. Currently appetite is reduced but plan is to trial liquid diet. Crampy abdominal pain, tenderness, and distention. Patient voided this morning. Bed not available 07/24 for transfer to [facility] for IBD specialist but still planning on transfer. BS present/hyperactive x4, distended abdomen. 07/25 Abdominal pain after liquid diet transitioned to NPO per GI. Nauseous with dilaudid 07/24, retrialing with zofran today. Waiting call to [facility] for transfer. BM 07/25 liquid x4 without concern for consistency or frequency per patient. BS present x4. 07/26 Patient alert, reporting no nausea overnight with pain medication. Abdominal pain and cramping persistent even with bowel movements 07/25/2024. Receiving TPN which she believes helped give her energy to walk with PT. BS x4. Awaiting transfer. Fecal calprotectin 2730 07/29 Patient alert awake and oriented x 4. She reports worsening abdominal pain diarrhea as well as nausea. She deferred the abdominal examination. She is n.p.o. except for sips with meds. She continues on TPN. Patient Vitals for the past 8 hrs: BP Temp Temp src Pulse Resp SpO2 Weight 07/29/24 0746 (!) 88/67 97.5 F (36.4 C) Oral 56 15 98 % -- 07/29/24 0600 -- -- -- -- -- -- 55.5 kg (122 lb 5.7 oz) 07/29/24 0554 91/61 -- -- 55 -- -- -- 07/29/24 0430 (!) 82/55 -- -- 54 15 -- -- 07/29/24 0148 (!) 87/57 -- -- 53 16 -- -- Summary of relevant labs: Labs: BUN: 13 Cr: 0.6 WBC: 5 Hb: 11 Plat: 222 CRP: 30.2 - 39 - 47.1 Micro: GI molecular panel negative Procedures Cardiology Imaging: CT ABDOMEN PELVIS W IV CONTRAST Additional Contrast? Oral Result Date: 07/19/2024 There is pathologically dilated small bowel upstream from a long segment of small bowel mural thickening and extensive perienteric inflammation. There are multiple interloop fluid collections, for example, right mid pelvis image 131/2 measuring 2.5 x 1.6 cm. Left paracentral pelvis on the same image measuring 1.6 x 1.1 cm. Enteric suture line in the right lower quadrant. Moderate volume of unorganized free fluid more anteriorly in the pelvis. CT AP 05/02/2024 Dilated proximal small bowel loops containing contrast with long segment narrowing involving a loop of ileum seen in the mid abdomen with circumferential wall thickening consistent with active inflammation. This is partially surrounded by the multiloculated abscess seen in the right lower abdomen measuring 7.1 by 7.5 cm on image 123. This is contiguous with 2 additional large abscesses seen in the right adnexa measuring 6.3 x 5.4 cm and in the upper pelvis in the midline measuring 5.3 x 4.8 cm. Overall similar to recent prior examination I have personally reviewed the past medical history, past surgical history, medications, social history, and family history, and I haveupdated the database accordingly. Allergies: Gluten, Motrin [ibuprofen], Nsaids, and Milk (cow) Review of Systems: Review of Systems Constitutional: Negative for activity change, chills, fatigue and fever. HENT: Negative for congestion. Eyes: Negative for discharge. Respiratory: Negative for cough and shortness of breath. Cardiovascular: Negative for chest pain. Gastrointestinal: Positive for abdominal pain, diarrhea, nausea and vomiting. Endocrine: Negative for cold intolerance, polyphagia and polyuria. Genitourinary: Negative for dysuria. Musculoskeletal: Negative for arthralgias and myalgias. Physical Examination : Physical Exam Constitutional: General: She is not in acute distress. Appearance: Normal appearance. She is not ill-appearing. HENT: Nose: No congestion or rhinorrhea. Mouth/Throat: Mouth: Mucous membranes are moist. Eyes: General: No scleral icterus. Right eye: No discharge. Left eye: No discharge. Conjunctiva/sclera: Conjunctivae normal. Pupils: Pupils are equal, round, and reactive to light. Cardiovascular: Rate and Rhythm: Normal rate and regular rhythm. Pulses: Normal pulses. Heart sounds: Normal heart sounds. No murmur heard. Pulmonary: Effort: Pulmonary effort is normal. No respiratory distress. Breath sounds: Normal breath sounds. No stridor. Musculoskeletal: General: No swelling or tenderness. Cervical back: No rigidity. Right lower leg: No edema. Left lower leg: No edema. Skin: Coloration: Skin is pale. Skin is not jaundiced. Neurological: Mental Status: She is alert and oriented to person, place, and time. Past Medical History: Past Medical History: Diagnosis Date Crohn disease (HCC) Past Surgical History: Past Surgical History: Procedure Laterality Date BOWEL RESECTION SECTION COLONOSCOPY N/A 06/05/2024 COLONOSCOPY BIOPSY performed by Maru Maguire MD at [facility] ENDO CT ABSCESS DRAINAGE 05/03/2024 CT ABSCESS DRAIN SUBCUTANEOUS 05/03/2024 Jose Manuel Torre MD [facility] CT SCAN TONSILLECTOMY AND ADENOIDECTOMY TUMOR REMOVAL Left left shoulder, benign WISDOM TOOTH EXTRACTION Medications: midodrine 10 mg Oral TID WC fat emulsion 250 mL IntraVENous Daily piperacillin-tazobactam 3,375 mg IntraVENous Q8H citalopram 40 mg Oral Daily sodium chloride flush 5-40 mL IntraVENous 2 times per day pantoprazole (PROTONIX) 40 mg in sodium chloride (PF) 0.9 % 10 mL injection 40 mg IntraVENous Daily enoxaparin 40 mg SubCUTAneous Daily Social History: Social History Socioeconomic History Marital status: Single Spouse name: Not on file Number of children: Not on file Years of education: Not on file Highest education level: Not on file Occupational History Not on file Tobacco Use Smoking status: Former Types: Cigarettes Smokeless tobacco: Never Vaping Use Vaping status: Every Day Substances: Nicotine Substance and Sexual Activity Alcohol use: Not Currently Comment: occass. Drug use: Not Currently Types: Marijuana ([place]) Comment: occassional Sexual activity: Yes Partners: Male Other Topics Concern Not on file Social History Narrative Not on file Social Determinants of Health Financial Resource Strain: Low Risk (11/24/2022) Received from [facility] Overall Financial Resource Strain (CARDIA) Difficulty of Paying Living Expenses: Not hard at all Food Insecurity: No Food Insecurity (07/20/2024) Hunger Vital Sign Worried About Running Out of Food in the Last Year: Never true Ran Out of Food in the Last Year: Never true Transportation Needs: No Transportation Needs (07/20/2024) PRAPARE - Transportation Lack of Transportation (Medical): No Lack of Transportation (Non-Medical): No Physical Activity: Not on file Stress: Not on file Social Connections: Unknown (06/03/2021) Received from [facility] Social Connections Frequency of Communication with Friends and Family: Not asked Frequency of Social Gatherings with Friends and Family: Not asked Intimate Partner Violence: Unknown (06/03/2021) Received from [facility] Intimate Partner Violence Fear of Current or Ex-Partner: Not asked Emotionally Abused: Not asked Physically Abused: Not asked Sexually Abused: Not asked Housing Stability: Low Risk (07/20/2024) Housing Stability Vital Sign Unable to Pay for Housing in the Last Year: No Number of Times Moved in the Last Year: 0 Homeless in the Last Year: No Family History: History reviewed. No pertinent family history. Medical Decision Making: I have independently reviewed/ordered the following labs: CBC with Differential: Recent Labs 07/28/24 0812 WBC 5.0 HGB 11.0* HCT 35.8* PLT 222 BMP: Recent Labs 07/28/24 0812 07/29/24 0631 NA 139 139 K 5.0 4.8 CL 105 107 CO2 27 22 BUN 10 13 CREATININE 0.5* 0.6 MG 2.3 2.2 Hepatic Function Panel: No results for input(s): LABALBU , BILIDIR , IBILI , BILITOT , ALKPHOS , ALT , AST in the last 72 hours. Invalid input(s): PROT No results for input(s): RPR in the last 72 hours. No results for input(s): HIV in the last 72 hours. No results for input(s): BC in the last 72 hours. Lab Results Component Value Date/Time CREATININE 0.6 07/29/2024 06:31 AM GLUCOSE 72 07/29/2024 06:31 AM Detailed results: Thank you for allowing us to participate in the care of this patient.Please call with questions. This note is created with the assistance of a speech recognition program. While intending to generate adocument that actually reflects the content of the visit, the document can still have some errors including those of syntax and sound a like substitutions which may escape proof reading. It such instances, actual meaningcan be extrapolated by contextual diversion. Marlene Rodas MD Office: [facility] / office [phone] I have discussed the care of the patient, including pertinent history and exam findings, with the resident., student or [employer]- I have seen and examined the patient and the price elements of all parts of the encounter have been performed by me. I have decided the assessment, plan and orders as documented by the resident.student or [employer]OACH TROUBLE SHO[employer]ER Manjit Grover, Infectious Diseases Received a call from [place], about the non availability of a bed for the pt at the moment. But that there's a possibility of having a bed for pt this weekend. Because there are pt scheduled to be discharged this weekend. Pt refused her 2199 BS check, stated that she doesn't want any needle sticks. Pt stated that she prefer BS check during lab draws. Comprehensive Nutrition Assessment Type and Reason for Visit: Reassess Nutrition Recommendations/Plan: Modify TPN: Increase rate to 55 mL/hr, decrease K+ and Ca slightly; add MVI/trace minerals. Continue 250 mL IV lipids. Provides 1500 kcals, 80 gm protein per day. Monitor labs and modify TPN as needed. Will monitor plans for oral diet, weights, and plan of care. Malnutrition Assessment: Malnutrition Status: Severe malnutrition (07/21/24 1445) Context: Chronic Illness Findings of the 6 clinical characteristics of malnutrition: Energy Intake: 75% or less estimated energy requirements for 1 month or longer Weight Loss: Mild weight loss Body Fat Loss: Mild body fat loss Orbital, Buccal region Muscle Mass Loss: Severe muscle mass loss Clavicles (pectoralis & deltoids), Hand (interosseous), Calf (gastrocnemius) Fluid Accumulation: No fluid accumulation [employer] Strength: Not Performed Nutrition Assessment: Pt's diet downgraded to NPO with sips of water with meds. Pt reports crampy abdominal pain. +BM's yesterday. TPN/IL continues. Discussed labs with RN - K+ trending up. Additional IV fluids started yesterday d/t soft blood pressure. Weight fluctuations noted - likely due to fluids. Meds reviewed. Awaiting transfer to [facility]. Nutrition Related Findings: Hypoactive bowel sounds. LBM 07/27. Wound Type: None Current Nutrition Intake & Therapies: Average Meal Intake: NPO Average Supplements Intake: NPO PN-Adult 2-in-1 Central Line (Standard) PN-Adult 2-in-1 Central Line (Standard) Diet NPO Exceptions are: Sips of Water with Meds Current Parenteral Nutrition Orders: Type and Formula: 2-in-1 Custom (200 gm Dextrose, 80 gm AA) Lipids: 250ml, Daily Duration: Continuous Rate/Volume: 51.3 mL/hr (1230 mL/day) Current PN Order Provides: 1500 kcals, 80 gm protein Goal PN Orders Provides: Additional Calorie Sources: None Anthropometric Measures: Height: 170.2 cm (5' 7.01 ) [place] Body Weight (IBW): 135 lbs (61 kg) Admission Body Weight: 53.7 kg (118 lb 6.2 oz) Current Body Weight: 52.4 kg (115 lb 8.3 oz), 85.6 % IBW. Weight Source: Bed scale Current BMI (kg/m2): 18.1 Usual Body Weight: 58.1 kg (128 lb) (per pt report) % Weight Change (Calculated): -10.1 Weight Adjustment For: No Adjustment BMI Categories: Underweight (BMI less than 18.5) Estimated Daily Nutrient Needs: Energy Requirements Based On: Kcal/kg Weight Used for Energy Requirements: Admission Energy (kcal/day): 5700-1785 kcals/day Weight Used for Protein Requirements: Admission Protein (g/day): 60-80 gm pro/day Method Used for Fluid Requirements: ml/Kg Fluid (ml/day): 35 mL/kg = 7822-6884 mL/day or per MD Nutrition Diagnosis: Severe malnutrition, in context of chronic illness related to inadequate protein-energy intake as evidenced by criteria as identified in malnutrition assessment, poor intake prior to admission Inadequate oral intake related to altered GI function as evidenced by nutrition support - parenteral nutrition Nutrition Interventions: Food and/or Nutrient Delivery: Continue NPO, Modify Parenteral Nutrition Nutrition Education/Counseling: No recommendation at this time Coordination of Nutrition Care: Continue to monitor while inpatient Plan of Care discussed with: RN; Patient Goals: Goals: Meet at least 75% of estimated needs, Tolerate nutrition support at goal rate Type of Goal: Continue current goal Previous Goal Met: Goal(s) Achieved Nutrition Monitoring and Evaluation: Behavioral-Environmental Outcomes: None Identified Food/Nutrient Intake Outcomes: Diet Advancement/Tolerance, Parenteral Nutrition Intake/Tolerance Physical Signs/Symptoms Outcomes: Biochemical Data, GI Status, Meal Time Behavior, Weight Discharge Planning: Too soon to determine Kayleigh Finch RD, TA Contact: [phone] Images from the original note were not included. [facility] Office: [phone] Marco Delarosa DO, Dominic Gonzalez DO, Clifton Blanc DO, Froylan Snowden DO, Paula Jensen MD, Radha Greer MD, Nitish Parra MD, Maya Hernández MD, Porfirio García MD, Norma Smith MD, Tanya Mercado MD, Eloy Alves, DO, Heidi Roche MD, Arthur Schroeder MD, Jose Manuel Delarosa, DO, Shikha Pastrana MD, Obed Lilly, DO, Rosangela Koehler MD, Alysa De Santiago MD, Dianne Agudelo MD, Judith Nicole MD, Lnodon Morales MD, Gamal Granger MD, Abby Salgado MD, Nereyda Lucas MD, Dru Shannon MD, Shahid Reddy MD, Ashley Schaffer DO, Cruzito Holloway MD, Eloy Valentin MD, Tony Valentin MD, Alix Acosta, BROACH TROUBLE SHOOTER, Shefali Hills, BROACH TROUBLE SHOOTER, Ashley Baker, BROACH TROUBLE SHOOTER, Muna Brandon, DNP, Neida Mars, BROACH TROUBLE SHOOTER, Jigna De Dios, BROACH TROUBLE SHOOTER, Angelina Peguero, BROACH TROUBLE SHOOTER, Adwoa Lei, BROACH TROUBLE SHOOTER, Carmen Wray, PA-C, Kathy Apple PA-C, Jaz Castaneda, BROACH TROUBLE SHOOTER, Robert Huertas, BROACH TROUBLE SHOOTER, Vanessa Saleh, BROACH TROUBLE SHOOTER, Philly Mcgarry, BROACH TROUBLE SHOOTER, Josefina Higgins, BROACH TROUBLE SHOOTER, Chanel Mccullough, AIRBRUSH ARTIST TECHNICAL, Ghassan Schwartz, BROACH TROUBLE SHOOTER, Lissett Root, BROACH TROUBLE SHOOTER, Lu Cooley, BROACH TROUBLE SHOOTER [facility] IN-PATIENT SERVICE [facility] Progress Note 07/28/2024 10:58 AM Name: Francine Hobson Acct: [id number] Room: 0243/0243-01 IP Day: 9 Admit Date: 07/19/2024 12:43 PM PCP: Dalia Apple DO Code Status: Full Code Subjective: C/C: Chief Complaint Patient presents with Abdominal Pain Vomiting Interval History Status: not changed. Patient was seen and examined continues to report frequent of loose stool and abdominal pain, blood pressure remains soft MAP 80 Discussed with RN at bedside Lab vital sign consultants note reviewed Awaiting transfer to [facility] Brief History: Per documentation This is a 38-year-old female with a history of Crohn's disease who presents to the hospital for evaluation of small bowel obstruction as well as for management of abdominal abscess. CT scan showed pathologically dilated small bowel upstream from a long segment of small bowel stricture with wall thickening and perienteric inflammatory changes consistent with a partial obstruction. She also had moderate volume of free fluid in the pelvis in addition to several fluid collection Review of Systems: Review of Systems Constitutional: Positive for fatigue. Negative for appetite change and fever. HENT: Negative for sore throat and trouble swallowing. Eyes: Negative for visual disturbance. Respiratory: Negative for cough, shortness of breath and wheezing. Cardiovascular: Negative for chest pain, palpitations and leg swelling. Gastrointestinal: Positive for abdominal pain and diarrhea. Negative for blood in stool, constipation, nausea and vomiting. Endocrine: Negative for polydipsia and polyuria. Genitourinary: Negative for decreased urine volume, difficulty urinating, dysuria, flank pain, frequency, hematuria and urgency. Musculoskeletal: Negative for back pain, gait problem and joint swelling. Skin: Negative for color change, rash and wound. Allergic/Immunologic: Negative for immunocompromised state. Neurological: Negative for dizziness, syncope, speech difficulty, weakness, light-headedness, numbness and headaches. Hematological: Negative for adenopathy. Psychiatric/Behavioral: Negative for agitation, behavioral problems and sleep disturbance. The patient is not nervous/anxious. Medications: Allergies: Allergies Allergen Reactions Gluten Motrin [Ibuprofen] Nsaids Milk (Cow) Diarrhea Current Meds: Scheduled Meds: midodrine 10 mg Oral TID WC fat emulsion 250 mL IntraVENous Daily piperacillin-tazobactam 3,375 mg IntraVENous Q8H citalopram 40 mg Oral Daily sodium chloride flush 5-40 mL IntraVENous 2 times per day pantoprazole (PROTONIX) 40 mg in sodium chloride (PF) 0.9 % 10 mL injection 40 mg IntraVENous Daily enoxaparin 40 mg SubCUTAneous Daily Continuous Infusions: PN-Adult 2-in-1 Central Line (Standard) 51.3 mL/hr at 07/27/24 1846 sodium chloride 25 mL/hr at 07/25/24 0016 lactated ringers 125 mL/hr at 07/27/24 2332 PRN Meds: oxyCODONE-acetaminophen, hyoscyamine, hydrOXYzine HCl, phenol, sodium chloride flush, sodium chloride, potassium chloride OR potassium alternative oral replacement OR potassium chloride, ondansetron OR ondansetron, acetaminophen OR acetaminophen, melatonin, HYDROmorphone Data: Past Medical History: has a past medical history of Crohn disease (HCC). Social History: reports that she has quit smoking. Her smoking use included cigarettes. She has never used smokeless tobacco. She reports that she does not currently use alcohol. She reports that she does not currently use drugs after having used the following drugs: Marijuana ([place]). Family History: History reviewed. No pertinent family history. Vitals: BP (!) 89/72 Pulse 59 Temp 97.7 F (36.5 C) (Oral) Resp 15 Ht 1.702 m (5' 7.01 ) Wt 52.4 kg (115 lb 8.3 oz) LMP 07/04/2024 (Approximate) SpO2 99% BMI 18.09 kg/m Temp (24hrs), Av F (36.7 C), Min:97.7 F (36.5 C), Max:98.2 F (36.8 C) No results for input(s): POCGLU in the last 72 hours. I/O (24Hr): Intake/Output Summary (Last 24 hours) at 07/28/2024 1058 Last data filed at 07/27/2024 1642 Gross per 24 hour Intake 150 ml Output -- Net 150 ml Labs: Hematology: No results for input(s): WBC , RBC , HGB , HCT , MCV , MCH , MCHC , RDW , PLT , MPV , SEDRATE , CRP , INR , DDIMER , UW5DWHMX , LABABSO in the last 72 hours. Invalid input(s): PT Chemistry: Recent Labs 07/27/24 0637 07/28/24 0812 NA 137 139 K 4.3 5.0 CL 102 105 CO2 26 27 GLUCOSE 91 90 BUN 8 10 CREATININE 0.5* 0.5* MG 2.5 2.3 ANIONGAP 9 7* LABGLOM >90 >90 CALCIUM 8.8 9.2 PHOS 4.4 4.1 No results for input(s): LABALBU , LABA1C , K2NKKAX , FT4 , TSH , AST , ALT , LDH , GGT , ALKPHOS , BILITOT , BILIDIR , AMMONIA , AMYLASE , LIPASE , LACTATE , CHOL , HDL , CHOLHDLRATIO , TRIG , VLDL , VVO08EF , PHENYTOIN , PHENYF , URICACID , POCGLU in the last 72 hours. Invalid input(s): PROT , N3FEJME , LABGGT , LDLCHOLESTEROL ABG:No results found for: POCPH , PHART , PH , POCPCO2 , DVY4PIW , PCO2 , POCPO2 , PO2ART , PO2 , POCHCO3 , ZJG1QOO , HCO3 , NBEA , PBEA , BEART , BE , THGBART , THB , VYE7BML , WQBX6JHZ , C4OIKMCF , O2SAT , FIO2 Lab Results Component Value Date/Time SPECIAL Site: Body Fluid 05/03/2024 06:05 PM Lab Results Component Value Date/Time CULTURE POSITIVE Fluid Culture 05/03/2024 06:05 PM CULTURE 05/03/2024 06:05 PM DIRECT GRAM STAIN FROM BOTTLE: GRAM POSITIVE COCCI IN CHAINS CULTURE (A) 05/03/2024 06:05 PM VIRIDANS STREPTOCOCCUS GROUP Identified as : STREPTOCOCCUS ANGINOSUS Identification by MALDI-TOF CULTURE 05/03/2024 06:05 PM (NOTE) Direct Gram Stain from bottle result called to and read back by:WAQAS De Guzman 05/04/24 1750 Radiology: XR ABDOMEN FOR NG/OG/NE TUBE PLACEMENT Result Date: 07/21/2024 Enteric catheter tip terminates in the mid to distal gastric body. XR ABDOMEN (KUB) (SINGLE AP VIEW) Result Date: 07/20/2024 Dilated small bowel loops seen in left upper quadrant suggest ileus or partial obstruction. Contrast seen throughout the colon excluding complete obstruction. CT ABDOMEN PELVIS W IV CONTRAST Additional Contrast? Oral Result Date: 07/19/2024 Pathologically dilated small bowel upstream from a long segment small bowel stricture with wall thickening and perienteric inflammatory change. Findings consistent with partial obstruction There are several interloop fluid collections as described likely representing abscesses. Moderate volume of free fluid also noted in the pelvis. Physical Examination: Physical Exam Constitutional: General: She is not in acute distress. Appearance: Normal appearance. HENT: Head: Normocephalic and atraumatic. Mouth/Throat: Mouth: Mucous membranes are moist. Eyes: General: No scleral icterus. Extraocular Movements: Extraocular movements intact. Pupils: Pupils are equal, round, and reactive to light. Cardiovascular: Rate and Rhythm: Normal rate and regular rhythm. Heart sounds: No murmur heard. Pulmonary: Effort: No respiratory distress. Breath sounds: No wheezing or rales. Abdominal: General: There is no distension. Tenderness: There is abdominal tenderness. There is no rebound. Comments: Tenderness mainly in the lower abdomen Musculoskeletal: General: No tenderness or deformity. Cervical back: Normal range of motion. No rigidity or tenderness. Right lower leg: No edema. Left lower leg: No edema. Skin: Coloration: Skin is not jaundiced. Findings: No lesion or rash. Neurological: General: No focal deficit present. Mental Status: She is alert and oriented to person, place, and time. Sensory: No sensory deficit. Motor: No weakness. Psychiatric: Mood and Affect: Mood normal. Assessment: Hospital Problems Last Modified POA * (Principal) Crohn's colitis, unspecified complication (HCC) 07/19/2024 Yes Partial intestinal obstruction (HCC) 07/20/2024 Yes Crohn's disease of colon with complication (HCC) 07/19/2024 Yes Generalized abdominal pain 07/19/2024 Yes Nausea and vomiting 07/20/2024 Yes Abdominal pain, epigastric 07/23/2024 Yes Plan: Abdominal pain likely due to Crohn disease complicated by stricturing, partial small bowel obstruction, GI is following recommended to keep patient n.p.o., TPN and to transfer the patient to [facility] to be evaluated by IBD GI IBD surgeon and agriculture research director, awaiting transfer to [facility] Continue IV Zosyn Hypotension continue IV fluid, midodrine, monitor blood pressure, increase midodrine to 10 3 times daily and will increase rateof IV fluid Symptomatic management Continue pantoprazole DVT prophylaxis IV fluid Nereyda Lucas MD 07/28/2024 10:58 AM [facility] Progress Note Francine Hobson is a 38 y.o. female patient. Hospitalization Day:9 Chief consult reason: History of Crohn's disease Severe abdominal pain Partial small bowel obstruction on CT scan Abdominal abscesses Subjective: Patient seen and examined. Patient reports no bowel movement since yesterday morning. Continues to have crampy abdominal pain. Objective: VITALS: BP (!) 89/72 Pulse 59 Temp 97.7 F (36.5 C) (Oral) Resp 15 Ht 1.702 m (5' 7.01 ) Wt 52.4 kg (115 lb 8.3 oz) LMP 07/04/2024 (Approximate) SpO2 99% BMI 18.09 kg/m TEMPERATURE: Current - Temp: 97.7 F (36.5 C); Max - Temp Av F (36.7 C) Min: 97.7 F (36.5 C) Max: 98.2 F (36.8 C) Physical Assessment: General appearance: alert, cooperative and no distress Mental Status: oriented to person, place and time and normal affect Lungs: clear to auscultation bilaterally, normal effort Heart: regular rate and rhythm, no murmur Abdomen: soft, mild diffuse lower abdominal tenderness R>L, nondistended, hypoactive and distant bowel sounds Extremities: no edema, no redness, No clubbing Skin: warm, dry, no gross lesions or rashes CURRENT MEDICATIONS: Scheduled Meds: midodrine 10 mg Oral TID WC fat emulsion 250 mL IntraVENous Daily piperacillin-tazobactam 3,375 mg IntraVENous Q8H citalopram 40 mg Oral Daily sodium chloride flush 5-40 mL IntraVENous 2 times per day pantoprazole (PROTONIX) 40 mg in sodium chloride (PF) 0.9 % 10 mL injection 40 mg IntraVENous Daily enoxaparin 40 mg SubCUTAneous Daily Continuous Infusions: PN-Adult 2-in-1 Central Line (Standard) 51.3 mL/hr at 07/27/24 1846 sodium chloride 25 mL/hr at 07/25/24 0016 lactated ringers 125 mL/hr at 07/27/24 2332 PRN Meds:oxyCODONE-acetaminophen, hyoscyamine, hydrOXYzine HCl, phenol, sodium chloride flush, sodium chloride, potassium chloride OR potassium alternative oral replacement OR potassium chloride, ondansetron OR ondansetron, acetaminophen OR acetaminophen, melatonin, HYDROmorphone Data Review: LABS and IMAGING: CBC No results for input(s): WBC , HGB , HCT , MCV , MCHC , RDW , PLT in the last 72 hours. Immature PLTs No results found for: PLTFLUORE PT/INR No results for input(s): PROTIME , INR in the last 72 hours. ANEMIA STUDIES No results for input(s): IRONPERSAT , TIBC , IRON , FERRITIN , [id number] , FOLATE , OCCULTBLD in the last 72 hours. BMP Recent Labs 07/27/24 0637 07/28/24 0812 NA 137 139 K 4.3 5.0 CL 102 105 CO2 26 27 BUN 8 10 CREATININE 0.5* 0.5* GLUCOSE 91 90 CALCIUM 8.8 9.2 MG 2.5 2.3 LFTS No results for input(s): ALKPHOS , ALT , AST , BILITOT , BILIDIR , ALBUMIN in the last 72 hours. AMYLASE/LIPASE/AMMONIA No results for input(s): AMYLASE , LIPASE , AMMONIA in the last 72 hours. Acute Hepatitis Panel Lab Results Component Value Date/Time HEPBSAG NONREACTIVE 01/27/2024 03:21 AM HEPCAB NONREACTIVE 01/27/2024 03:21 AM HEPBIGM NONREACTIVE 01/27/2024 03:21 AM HEPAIGM NONREACTIVE 01/27/2024 03:21 AM HCV Genotype No components found for: HEPATITISCGENOTYPE HCV Quantitative No results found for: HCVQNT LIVER WORK UP: AFP No results found for: AFP Alpha 1 antitrypsin No results found for: A1A Anti - Liver/Kidney Ab No results found for: LIVER-KIDNEYMICROSOMALAB MARIELLA No results found for: MARIELLA AMA No results found for: MITOAB ASMA No results found for: SMOOTHMUSCAB Ceruloplasmin No results found for: CERULOPLSM Celiac panel No results found for: TISSTRNTIIGG , TTGIGA , IGA IgG No results found for: IGG IgM No results found for: IGM GGT No results found for: GGT PT/INR No results for input(s): PROTIME , INR in the last 72 hours. Cancer Markers: CEA: No results found for: CEA Ca 125: No results found for: CA125 Ca 19-9: No results found for: CA199 AFP: No results found for: AFP Lactic acid: No results for input(s): LACTACIDWB in the last 72 hours. Radiology Review: IMPRESSION: Pathologically dilated small bowel upstream from a long segment small bowel stricture with wall thickening and perienteric inflammatory change. Findings consistent with partial obstruction There are several interloop fluid collections as described likely representing abscesses. Moderate volume of free fluid also noted in the pelvis. ENDOSCOPY Principal Problem: Crohn's colitis, unspecified complication (HCC) Active Problems: Partial intestinal obstruction (HCC) Crohn's disease of colon with complication (HCC) Generalized abdominal pain Nausea and vomiting Abdominal pain, epigastric Resolved Problems: * No resolved hospital problems. * GI Assessment: 38-year-old female with Crohn's ileocolitis s/p ileocecal resection 2005, intra-abdominal abscess 2006, recurrent partial small bowel obstruction who presents with abdominal pain, nausea and vomiting Crohn's disease complicated by stricturing, partial small bowel obstruction, and prior intra-abdominal abscesses. CT showing partial bowel obstruction and multiple fluid collections-possible abscess. Fecal Jairo Pro 2,730 Recommendations: Continue TPN NPO except for meds Awaiting transfer to [facility] where they have a dedicated IBD team including IBD GI, IBD surgeon and door clamp operator Continue broad-spectrum antibiotics per ID discretion. Currently on Zosyn Levsin 0.25 mg IV Q 6 hrs PRN GI will follow peripherally. Please recall with any concerns. Plans for transfer to initiated by Dr Valentin 07/22/2024. Time spent reviewing chart, seeing patient, documentation and coordination of care for the above conditions, and discussing with attending: Around 35 minutes This plan was formulated in collaboration with Dr. Maguire Please feel free to contact me with any questions or concerns. Thank you for allowing me to participate in the care of your patient. Isabelle Gandhi, DIONISIO - BROACH TROUBLE SHOOTER on 07/28/2024 at 10:54 AM [facility] Please note that this note was generated using a voice recognition dictation software. Although every effort was made to ensure the accuracy of this automated nuclear medicine supervisor, some errors in nuclear medicine supervisor may have occurred. Attested: I have discussed the care of Francine Hobson and I have examined the patient myselft and taken ros and hpi , including pertinent history and exam findings, with the author of this note . I have reviewed the price elements of all parts of the encounter with the nurse practitioner/resident. I agree with the assessment, plan and orders as documented by the above health care provider More than 50% of the time was spent taking care of this patient in addition to the nurse practitioner time. That also included history taking follow-up physical examination and review of system. Images from the original note were not included. [facility] Office: [phone] Marco Delarosa DO, Dominic Gonzalez DO, Clifton Blanc DO, Froylan Snowden DO, Paula Jensen MD, Radha Greer MD, Nitish Parra MD, Maya Hernández MD, Porfirio García MD, Norma Smith MD, Tanya Mercado MD, Eloy Alves DO, Heidi Roche MD, Arthur Schroeder MD, Jose Manuel Delarosa DO, Shikha Pastrana MD, Obed Lilly DO, Rosangela Koehler MD, Alysa De Santiago MD, Dianne Agudelo MD, Judith Nicole MD, London Morales MD, Gamal Granger MD, Abby Salgado MD, Nereyda Lucas MD, Dru Sahnnon MD, Shahid Reddy MD, Ashley Schaffer DO, Cruzito Holloway MD, Eloy Valentin MD, Tony Valentin MD, Alix Acosta CNP, Shefali Hills CNP, Ashley Baker CNP, Muna Brandon, CRESENCIO, Neida Mars, BROACH TROUBLE SHOOTER, Jigna De Dios, BROACH TROUBLE SHOOTER, Angelina Peguero, BROACH TROUBLE SHOOTER, Adwoa Lei, BROACH TROUBLE SHOOTER, Carmen Wray PA-C, JOHN TylerC, Jaz Castaneda BROACH TROUBLE SHOOTER, Robert Huertas BROACH TROUBLE SHOOTER, Vanessa Saleh, BROACH TROUBLE SHOOTER, Philly Mcgarry, BROACH TROUBLE SHOOTER, Josefina Higgins, BROACH TROUBLE SHOOTER, Chanel Mccullough, AIRBRUSH ARTIST TECHNICAL, Ghassan Schwartz, BROACH TROUBLE SHOOTER, Lissett Root, BROACH TROUBLE SHOOTER, Lu Cooley, BROACH TROUBLE SHOOTER [facility] IN-PATIENT SERVICE [facility] Progress Note 07/27/2024 12:19 PM Name: Francine Hobson Acct: [id number] Room: [address] [place] [address] IP Day: 8 Admit Date: 07/19/2024 12:43 PM PCP: Dalia Apple DO Code Status: Full Code Subjective: C/C: Chief Complaint Patient presents with Abdominal Pain Vomiting Interval History Status: not changed. Patient was seen and examined continues to report frequent of loose stool and abdominal pain, blood pressure remains soft MAP 65, will increase rate of IV fluid and will increase insulin to 10 3 times daily and will continue to monitor Discussed with psychotherapist social worker vital sign consultants note reviewed Awaiting transfer to [facility] Brief History: Per documentation This is a 38-year-old female with a history of Crohn's disease who presents to the hospital for evaluation of small bowel obstruction as well as for management of abdominal abscess. CT scan showed pathologically dilated small bowel upstream from a long segment of small bowel stricture with wall thickening and perienteric inflammatory changes consistent with a partial obstruction. She also had moderate volume of free fluid in the pelvis in addition to several fluid collection Review of Systems: Review of Systems Constitutional: Positive for fatigue. Negative for appetite change and fever. HENT: Negative for sore throat and trouble swallowing. Eyes: Negative for visual disturbance. Respiratory: Negative for cough, shortness of breath and wheezing. Cardiovascular: Negative for chest pain, palpitations and leg swelling. Gastrointestinal: Positive for abdominal pain and diarrhea. Negative for blood in stool, constipation, nausea and vomiting. Endocrine: Negative for polydipsia and polyuria. Genitourinary: Negative for decreased urine volume, difficulty urinating, dysuria, flank pain, frequency, hematuria and urgency. Musculoskeletal: Negative for back pain, gait problem and joint swelling. Skin: Negative for color change, rash and wound. Allergic/Immunologic: Negative for immunocompromised state. Neurological: Negative for dizziness, syncope, speech difficulty, weakness, light-headedness, numbness and headaches. Hematological: Negative for adenopathy. Psychiatric/Behavioral: Negative for agitation, behavioral problems and sleep disturbance. The patient is not nervous/anxious. Medications: Allergies: Allergies Allergen Reactions Gluten Motrin [Ibuprofen] Nsaids Milk (Cow) Diarrhea Current Meds: Scheduled Meds: midodrine 10 mg Oral TID WC fat emulsion 250 mL IntraVENous Daily piperacillin-tazobactam 3,375 mg IntraVENous Q8H citalopram 40 mg Oral Daily sodium chloride flush 5-40 mL IntraVENous 2 times per day pantoprazole (PROTONIX) 40 mg in sodium chloride (PF) 0.9 % 10 mL injection 40 mg IntraVENous Daily enoxaparin 40 mg SubCUTAneous Daily Continuous Infusions: PN-Adult 2-in-1 Central Line (Standard) PN-Adult 2-in-1 Central Line (Standard) 51.3 mL/hr at 07/26/24 1917 sodium chloride 25 mL/hr at 07/25/24 0016 lactated ringers 75 mL/hr at 07/27/24 1124 PRN Meds: oxyCODONE-acetaminophen, hyoscyamine, hydrOXYzine HCl, phenol, sodium chloride flush, sodium chloride, potassium chloride OR potassium alternative oral replacement OR potassium chloride, ondansetron OR ondansetron, acetaminophen OR acetaminophen, melatonin, HYDROmorphone Data: Past Medical History: has a past medical history of Crohn disease (HCC). Social History: reports that she has quit smoking. Her smoking use included cigarettes. She has never used smokeless tobacco. She reports that she does not currently use alcohol. She reports that she does not currently use drugs after having used the following drugs: Marijuana ([place]). Family History: History reviewed. No pertinent family history. Vitals: BP 96/68 Pulse 53 Temp 97.7 F (36.5 C) (Oral) Resp 16 Ht 1.702 m (5' 7.01 ) Wt 48 kg (105 lb 13.1 oz) LMP 07/04/2024 (Approximate) SpO2 100% BMI 16.57 kg/m Temp (24hrs), Av F (36.7 C), Min:97.7 F (36.5 C), Max:98.1 F (36.7 C) No results for input(s): POCGLU in the last 72 hours. I/O (24Hr): No intake or output data in the 24 hours ending 07/27/24 1219 Labs: Hematology: Recent Labs 07/24/24 1512 WBC 4.9 RBC 3.77* HGB 10.4* HCT 32.6* MCV 86.5 MCH 27.6 MCHC 31.9 RDW 15.9* PLT 219 MPV 9.7 Chemistry: Recent Labs 07/25/24 0808 07/27/24 0637 NA 140 137 K 3.8 4.3 CL 106 102 CO2 27 26 GLUCOSE 109* 91 BUN 5* 8 CREATININE 0.4* 0.5* MG 2.1 2.5 ANIONGAP 7* 9 LABGLOM >90 >90 CALCIUM 8.3* 8.8 PHOS 3.4 4.4 No results for input(s): LABALBU , LABA1C , L7FPSAR , FT4 , TSH , AST , ALT , LDH , GGT , ALKPHOS , BILITOT , BILIDIR , AMMONIA , AMYLASE , LIPASE , LACTATE , CHOL , HDL , CHOLHDLRATIO , TRIG , VLDL , HGM89FS , PHENYTOIN , PHENYF , URICACID , POCGLU in the last 72 hours. Invalid input(s): PROT , P2NQZLQ , LABGGT , LDLCHOLESTEROL ABG:No results found for: POCPH , PHART , PH , POCPCO2 , EPG0UNP , PCO2 , POCPO2 , PO2ART , PO2 , POCHCO3 , FEK8SOQ , HCO3 , NBEA , PBEA , BEART , BE , THGBART , THB , GSL1VZV , PAZX5ITV , U9IRKBRT , O2SAT , FIO2 Lab Results Component Value Date/Time SPECIAL Site: Body Fluid 05/03/2024 06:05 PM Lab Results Component Value Date/Time CULTURE POSITIVE Fluid Culture 05/03/2024 06:05 PM CULTURE 05/03/2024 06:05 PM DIRECT GRAM STAIN FROM BOTTLE: GRAM POSITIVE COCCI IN CHAINS CULTURE (A) 05/03/2024 06:05 PM VIRIDANS STREPTOCOCCUS GROUP Identified as : STREPTOCOCCUS ANGINOSUS Identification by MALDI-TOF CULTURE 05/03/2024 06:05 PM (NOTE) Direct Gram Stain from bottle result called to and read back by:WAQAS De Guzman 05/04/24 3830 Radiology: XR ABDOMEN FOR NG/OG/NE TUBE PLACEMENT Result Date: 07/21/2024 Enteric catheter tip terminates in the mid to distal gastric body. XR ABDOMEN (KUB) (SINGLE AP VIEW) Result Date: 07/20/2024 Dilated small bowel loops seen in left upper quadrant suggest ileus or partial obstruction. Contrast seen throughout the colon excluding complete obstruction. CT ABDOMEN PELVIS W IV CONTRAST Additional Contrast? Oral Result Date: 07/19/2024 Pathologically dilated small bowel upstream from a long segment small bowel stricture with wall thickening and perienteric inflammatory change. Findings consistent with partial obstruction There are several interloop fluid collections as described likely representing abscesses. Moderate volume of free fluid also noted in the pelvis. Physical Examination: Physical Exam Constitutional: General: She is not in acute distress. Appearance: Normal appearance. HENT: Head: Normocephalic and atraumatic. Mouth/Throat: Mouth: Mucous membranes are moist. Eyes: General: No scleral icterus. Extraocular Movements: Extraocular movements intact. Pupils: Pupils are equal, round, and reactive to light. Cardiovascular: Rate and Rhythm: Normal rate and regular rhythm. Heart sounds: No murmur heard. Pulmonary: Effort: No respiratory distress. Breath sounds: No wheezing or rales. Abdominal: General: There is no distension. Tenderness: There is abdominal tenderness. There is no rebound. Comments: Tenderness mainly in the lower abdomen Musculoskeletal: General: No tenderness or deformity. Cervical back: Normal range of motion. No rigidity or tenderness. Right lower leg: No edema. Left lower leg: No edema. Skin: Coloration: Skin is not jaundiced. Findings: No lesion or rash. Neurological: General: No focal deficit present. Mental Status: She is alert and oriented to person, place, and time. Sensory: No sensory deficit. Motor: No weakness. Psychiatric: Mood and Affect: Mood normal. Assessment: Hospital Problems Last Modified POA * (Principal) Crohn's colitis, unspecified complication (HCC) 07/19/2024 Yes Partial intestinal obstruction (HCC) 07/20/2024 Yes Crohn's disease of colon with complication (HCC) 07/19/2024 Yes Generalized abdominal pain 07/19/2024 Yes Nausea and vomiting 07/20/2024 Yes Abdominal pain, epigastric 07/23/2024 Yes Plan: Abdominal pain likely due to Crohn disease complicated by stricturing, partial small bowel obstruction, GI is following recommended to keep patient n.p.o., TPN and to transfer the patient to [facility] to be evaluated by IBD GI IBD surgeon and agriculture research director, awaiting transfer to [facility] Continue IV Zosyn Hypotension continue IV fluid, midodrine, monitor blood pressure, increase midodrine to 10 3 times daily and will increase rateof IV fluid Symptomatic management Continue pantoprazole DVT prophylaxis IV fluid Nereyda Lucas MD 07/27/2024 12:19 PM Comprehensive Nutrition Assessment Type and Reason for Visit: Reassess Nutrition Recommendations/Plan: Continue current TPN/IL regimen Adjust TPN as PO diet and intake advances Will monitor labs, GI status, wt, PO intake, and POC Malnutrition Assessment: Malnutrition Status: Severe malnutrition (07/21/24 1445) Nutrition Assessment: Diet advanced to [facility]. Pt noted to be tolerating popsicles, ice chip, and sips. +flatus and loose stools. Awaiting bed at . TPN/IL reordered @ 51 ml/hr + 250 ml lipids/day. Labs WNL. Ca++ adjusted as new lab value is WNL. MVI/trace minerals removed from new bag per protocol. RD will continue to monitor per protocol. Nutrition Related Findings: Hypoactive bowel sounds. LBM 07/25. Wound Type: None Current Nutrition Intake & Therapies: Average Meal Intake: 1-25% Average Supplements Intake: NPO PN-Adult 2-in-1 Central Line (Standard) ADULT DIET; Clear Liquid Anthropometric Measures: Height: 170.2 cm (5' 7.01 ) [place] Body Weight (IBW): 135 lbs (61 kg) Admission Body Weight: 53.7 kg (118 lb 6.2 oz) Current Body Weight: 48.1 kg (106 lb 0.7 oz), 78.5 % IBW. Weight Source: Bed scale Current BMI (kg/m2): 16.6 Usual Body Weight: 58.1 kg (128 lb) (per pt report) % Weight Change (Calculated): -10.1 Weight Adjustment For: No Adjustment BMI Categories: Underweight (BMI less than 18.5) Estimated Daily Nutrient Needs: Energy Requirements Based On: Kcal/kg Weight Used for Energy Requirements: Admission Energy (kcal/day): 2217-1569 kcals/day Weight Used for Protein Requirements: Admission Protein (g/day): 60-80 gm pro/day Method Used for Fluid Requirements: ml/Kg Fluid (ml/day): 35 mL/kg = 7309-6151 mL/day or per MD Nutrition Diagnosis: Severe malnutrition, in context of chronic illness related to inadequate protein-energy intake as evidenced by criteria as identified in malnutrition assessment, poor intake prior to admission Inadequate oral intake related to altered GI function as evidenced by nutrition support - parenteral nutrition Nutrition Interventions: Food and/or Nutrient Delivery: Continue Current Diet, Continue Current Parenteral Nutrition Nutrition Education/Counseling: No recommendation at this time Coordination of Nutrition Care: Continue to monitor while inpatient Plan of Care discussed with: Patient; RN Goals: Goals: Meet at least 75% of estimated needs, Tolerate nutrition support at goal rate Type of Goal: Continue current goal Previous Goal Met: Goal(s) Achieved Nutrition Monitoring and Evaluation: Behavioral-Environmental Outcomes: None Identified Food/Nutrient Intake Outcomes: Diet Advancement/Tolerance, Parenteral Nutrition Intake/Tolerance Physical Signs/Symptoms Outcomes: Biochemical Data, GI Status, Meal Time Behavior, Weight Discharge Planning: Too soon to determine Elsy Cotter RDN, LD, MS Contact: [phone] Colorectal surgery: Daily Progress Note PATIENT NAME: Francine Hobson TODAY'S DATE: 07/27/2024, 7:19 AM CC: Mild abdominal pain along with nausea SUBJECTIVE: Pt seen and examined at bedside. Patient's diet was discontinued and patient placed n.p.o. with TPN. Tolerating chips and popsicles. Afebrile, vital signs stable. No white count as of 07/23. Does not complain of any abdominal distention. Passing some amount of flatus, and had multiple liquid yesterday. Is amenable to transfer to [facility] for higher level care. Waiting on bed availability. OBJECTIVE: VITALS: BP 105/64 Pulse 76 Temp 98.1 F (36.7 C) (Oral) Resp 16 Ht 1.702 m (5' 7.01 ) Wt 48 kg (105 lb 13.1 oz) LMP 07/04/2024 (Approximate) SpO2 97% BMI 16.57 kg/m INTAKE/OUTPUT: No intake or output data in the 24 hours ending 07/27/24 0719 PHYSICAL EXAM: Physical Exam Vitals reviewed. Constitutional: General: She is not in acute distress. Appearance: She is not toxic-appearing. HENT: Head: Normocephalic and atraumatic. Right Ear: External ear normal. Left Ear: External ear normal. Nose: Nose normal. Mouth/Throat: Mouth: Mucous membranes are dry. Eyes: Extraocular Movements: Extraocular movements intact. Cardiovascular: Rate and Rhythm: Normal rate and regular rhythm. Pulmonary: Effort: Pulmonary effort is normal. No respiratory distress. Abdominal: General: There is no distension. Palpations: Abdomen is soft. Comments: Mild diffuse tenderness to palpation Skin: General: Skin is warm and dry. Capillary Refill: Capillary refill takes less than 2 seconds. Neurological: General: No focal deficit present. Mental Status: She is alert and oriented to person, place, and time. Psychiatric: Mood and Affect: Mood normal. Behavior: Behavior normal. Data: {LABS: Recent Results (from the past 24 hour(s)) Basic Metabolic Panel Collection Time: 07/27/24 6:37 AM Result Value Ref Range Sodium 137 136 - 145 mmol/L Potassium 4.3 3.7 - 5.3 mmol/L Chloride 102 98 - 107 mmol/L CO2 26 20 - 31 mmol/L Anion Gap 9 9 - 16 mmol/L Glucose 91 74 - 99 mg/dL BUN 8 6 - 20 mg/dL Creatinine 0.5 (L) 0.6 - 0.9 mg/dL Est, Glom Filt Rate >90 >60 mL/min/1.73m2 Calcium 8.8 8.6 - 10.4 mg/dL Magnesium Collection Time: 07/27/24 6:37 AM Result Value Ref Range Magnesium 2.5 1.6 - 2.6 mg/dL Phosphorus Collection Time: 07/27/24 6:37 AM Result Value Ref Range Phosphorus 4.4 2.5 - 4.5 mg/dL Radiology Review: XR ABDOMEN FOR NG/OG/NE TUBE PLACEMENT Result Date: 07/21/2024 Enteric catheter tip terminates in the mid to distal gastric body. ASSESSMENT: Active Hospital Problems Diagnosis Date Noted Abdominal pain, epigastric [R10.13] 07/23/2024 Nausea and vomiting [R11.2] 07/20/2024 Crohn's colitis, unspecified complication (HCC) [K50.119] 07/19/2024 Generalized abdominal pain [R10.84] 05/02/2024 Partial intestinal obstruction (HCC) [K56.600] 01/26/2024 Crohn's disease of colon with complication (HCC) [K50.119] 06/04/2020 38 yo female with hx Crohn's presents with small bowel obstruction Plan: Continue medical mgmt and supportive care per primary TPN, NPO, okay for sips and chips and popsicles Recommend K>4, Mag >2 Continue IV Zosyn Okay to ambulate and work with PT OT GI consulted, pt will need medical management of Crohn's disease Colorectal surgery not planning surgical intervention on this patient's small bowel. Recommend evaluation by general surgery service at [facility], has beed accepted but waiting on bed. This has been discussed with the patient's primary team. Ashley Loyola, DO 07/27/24 General Surgery PGY [address] Katz saw and examined the patient. I have edited the above and agree with the above. Hemant Katz [facility] Francine Hobson is a 38 y.o. female patient. Hospitalization Day:8 Chief consult reason: History of Crohn's disease Severe abdominal pain Partial small bowel obstruction on CT scan Abdominal abscesses Subjective: Patient seen and examined. Patient reports overall doing well. Continues to have crampy abdominal pain. Having several small bowel movements. Objective: VITALS: BP 105/64 Pulse 76 Temp 98.1 F (36.7 C) (Oral) Resp 16 Ht 1.702 m (5' 7.01 ) Wt 48 kg (105 lb 13.1 oz) LMP 07/04/2024 (Approximate) SpO2 97% BMI 16.57 kg/m TEMPERATURE: Current - Temp: 98.1 F (36.7 C); Max - Temp Av.9 F (36.6 C) Min: 97.6 F (36.4 C) Max: 98.1 F (36.7 C) Physical Assessment: General appearance: alert, cooperative and no distress Mental Status: oriented to person, place and time and normal affect Lungs: clear to auscultation bilaterally, normal effort Heart: regular rate and rhythm, no murmur Abdomen: soft, mild diffuse lower abdominal tenderness R>L, nondistended, hypoactive and distant bowel sounds Extremities: no edema, no redness, No clubbing Skin: warm, dry, no gross lesions or rashes CURRENT MEDICATIONS: Scheduled Meds: midodrine 5 mg Oral TID WC fat emulsion 250 mL IntraVENous Daily piperacillin-tazobactam 3,375 mg IntraVENous Q8H citalopram 40 mg Oral Daily sodium chloride flush 5-40 mL IntraVENous 2 times per day pantoprazole (PROTONIX) 40 mg in sodium chloride (PF) 0.9 % 10 mL injection 40 mg IntraVENous Daily enoxaparin 40 mg SubCUTAneous Daily Continuous Infusions: PN-Adult 2-in-1 Central Line (Standard) 51.3 mL/hr at 07/26/24 1917 sodium chloride 25 mL/hr at 07/25/24 0016 lactated ringers 75 mL/hr at 07/25/24 0602 PRN Meds:hyoscyamine, hydrOXYzine HCl, phenol, sodium chloride flush, sodium chloride, potassium chloride OR potassium alternative oral replacement OR potassium chloride, ondansetron OR ondansetron, acetaminophen OR acetaminophen, melatonin, HYDROmorphone Data Review: LABS and IMAGING: CBC Recent Labs 07/24/24 1512 WBC 4.9 HGB 10.4* HCT 32.6* MCV 86.5 MCHC 31.9 RDW 15.9* PLT 219 Immature PLTs No results found for: PLTFLUORE PT/INR No results for input(s): PROTIME , INR in the last 72 hours. ANEMIA STUDIES No results for input(s): IRONPERSAT , TIBC , IRON , FERRITIN , AEPVVAFH55 , FOLATE , OCCULTBLD in the last 72 hours. BMP Recent Labs 07/25/24 0808 NA 140 K 3.8 CL 106 CO2 27 BUN 5* CREATININE 0.4* GLUCOSE 109* CALCIUM 8.3* MG 2.1 LFTS No results for input(s): ALKPHOS , ALT , AST , BILITOT , BILIDIR , ALBUMIN in the last 72 hours. AMYLASE/LIPASE/AMMONIA No results for input(s): AMYLASE , LIPASE , AMMONIA in the last 72 hours. Acute Hepatitis Panel Lab Results Component Value Date/Time HEPBSAG NONREACTIVE 01/27/2024 03:21 AM HEPCAB NONREACTIVE 01/27/2024 03:21 AM HEPBIGM NONREACTIVE 01/27/2024 03:21 AM HEPAIGM NONREACTIVE 01/27/2024 03:21 AM HCV Genotype No components found for: HEPATITISCGENOTYPE HCV Quantitative No results found for: HCVQNT LIVER WORK UP: AFP No results found for: AFP Alpha 1 antitrypsin No results found for: A1A Anti - Liver/Kidney Ab No results found for: LIVER-KIDNEYMICROSOMALAB MARIELLA No results found for: MARIELLA AMA No results found for: MITOAB ASMA No results found for: SMOOTHMUSCAB Ceruloplasmin No results found for: CERULOPLSM Celiac panel No results found for: TISSTRNTIIGG , TTGIGA , IGA IgG No results found for: IGG IgM No results found for: IGM GGT No results found for: GGT PT/INR No results for input(s): PROTIME , INR in the last 72 hours. Cancer Markers: CEA: No results found for: CEA Ca 125: No results found for: CA125 Ca 19-9: No results found for: CA199 AFP: No results found for: AFP Lactic acid: No results for input(s): LACTACIDWB in the last 72 hours. Radiology Review: IMPRESSION: Pathologically dilated small bowel upstream from a long segment small bowel stricture with wall thickening and perienteric inflammatory change. Findings consistent with partial obstruction There are several interloop fluid collections as described likely representing abscesses. Moderate volume of free fluid also noted in the pelvis. ENDOSCOPY Principal Problem: Crohn's colitis, unspecified complication (HCC) Active Problems: Partial intestinal obstruction (HCC) Crohn's disease of colon with complication (HCC) Generalized abdominal pain Nausea and vomiting Abdominal pain, epigastric Resolved Problems: * No resolved hospital problems. * GI Assessment: 38-year-old female with Crohn's ileocolitis s/p ileocecal resection 2005, intra-abdominal abscess 2006, recurrent partial small bowel obstruction who presents with abdominal pain, nausea and vomiting Crohn's disease complicated by stricturing, partial small bowel obstruction, and prior intra-abdominal abscesses. CT showing partial bowel obstruction and multiple fluid collections-possible abscess. Fecal Jairo Pro 2,830 Recommendations: Continue TPN NPO except for meds, ice chips and popsicles Awaiting transfer to [facility] where they have a dedicated IBD team including IBD GI, IBD surgeon and door clamp operator Continue broad-spectrum antibiotics per ID discretion. Currently on Zosyn Levsin 0.25 mg IV Q 6 hrs PRN Plans for transfer to initiated by Dr Valentin 07/22/2024. Time spent reviewing chart, seeing patient, documentation and coordination of care for the above conditions, and discussing with attending: Around 35 minutes This plan was formulated in collaboration with Dr. Maguire Please feel free to contact me with any questions or concerns. Thank you for allowing me to participate in the care of your patient. Isabelle Gandhi, SHOULDER JOINER - BROACH TROUBLE SHOOTER on 07/27/2024 at 5:59 AM [facility] Please note that this note was generated using a voice recognition dictation software. Although every effort was made to ensure the accuracy of this automated nuclear medicine supervisor, some errors in nuclear medicine supervisor may have occurred. Attested: I have discussed the care of Francine Hobson and I have examined the patient myselft and taken ros and hpi , including pertinent history and exam findings, with the author of this note . I have reviewed the price elements of all parts of the encounter with the nurse practitioner/resident. I agree with the assessment, plan and orders as documented by the above health care provider with the following addendum Plan- Continue IV antibiotics Will need TPN Can be started on clears Arrange for transfer to [facility] More than 50% of the time was spent taking care of this patient in addition to the nurse practitioner time. That also included history taking follow-up physical examination and review of system. Images from the original note were not included. [facility] Office: [phone] Marco Delarosa DO, Dominic Gonzalez DO, Clifton Blanc DO, Froylan Snowden DO, Paula Jensen MD, Radha Greer MD, Nitish Parra MD, Maya Hernández MD, Porfirio García MD, Norma Smith MD, Tanya Mercado MD, Eloy Alves DO, Heidi Roche MD, Arthur Schroeder MD, Jose Manuel Delarosa DO, Shikha Pastrana MD, Obed Lilly DO, Rosangela Koehler MD, Alysa De Santiago MD, Dianne Agudelo MD, Judith Nicole MD, London Morales MD, Gamal Granger MD, Abby Salgado MD, Nereyda Lucas MD, Dru Shannon MD, Shahid Reddy MD, Ashley Schaffer DO, Cruzito Holloway MD, Eloy Valentin MD, Tony Valentin MD, Alix Acosta, [employer]OACH TROUBLE SHOOTER, Shefali Hills, [employer]OACH TROUBLE SHOOTER, Ashley Baker, BROACH TROUBLE SHOOTER, Muna Brandon, [facility], Neida Mars, BROACH TROUBLE SHOOTER, Jigna De Dios, [employer]OACH TROUBLE SHOOTER, Angelina Peguero, [employer]OACH TROUBLE SHOOTER, Adwoa Lei, [employer]OACH TROUBLE SHOOTER, Carmen Wray, PA-C, Kathy Apple, PA-C, Jaz Castaneda, [employer]OACH TROUBLE SHOOTER, Robert Huertas, [employer]OACH TROUBLE SHOOTER, Vanessa Saleh, [employer]OACH TROUBLE SHOOTER, Philly Mcgarry, [employer] TROUBLE SHOOTER, Josefina Higgins, BROACH TROUBLE SHOOTER, Chanel Mccullough, [facility], Ghassan Schwartz, BROACH TROUBLE SHOOTER, Lissett Root, BROACH TROUBLE SHOOTER, Lu Cooley, BROACH TROUBLE SHOOTER [facility] IN-PATIENT SERVICE [facility] Progress Note 07/26/2024 11:01 AM Name: Francine Hobson Acct: [id number] Room: [address] [place] [address] Day: 7 Admit Date: 07/19/2024 12:43 PM PCP: Dalia Apple DO Code Status: Full Code Subjective: C/C: Chief Complaint Patient presents with Abdominal Pain Vomiting Interval History Status: not changed. Seen and examined, continue reports abdominal pain and loose stool, had 4 bowel movements yesterday and 1 loose stool today morning Lab vital sign consultants note reviewed Awaiting transfer to [facility] Brief History: Per documentation This is a 38-year-old female with a history of Crohn's disease who presents to the hospital for evaluation of small bowel obstruction as well as for management of abdominal abscess. CT scan showed pathologically dilated small bowel upstream from a long segment of small bowel stricture with wall thickening and perienteric inflammatory changes consistent with a partial obstruction. She also had moderate volume of free fluid in the pelvis in addition to several fluid collection Review of Systems: Review of Systems Constitutional: Positive for fatigue. Negative for appetite change and fever. HENT: Negative for sore throat and trouble swallowing. Eyes: Negative for visual disturbance. Respiratory: Negative for cough, shortness of breath and wheezing. Cardiovascular: Negative for chest pain, palpitations and leg swelling. Gastrointestinal: Positive for abdominal pain and diarrhea. Negative for blood in stool, constipation, nausea and vomiting. Endocrine: Negative for polydipsia and polyuria. Genitourinary: Negative for decreased urine volume, difficulty urinating, dysuria, flank pain, frequency, hematuria and urgency. Musculoskeletal: Negative for back pain, gait problem and joint swelling. Skin: Negative for color change, rash and wound. Allergic/Immunologic: Negative for immunocompromised state. Neurological: Negative for dizziness, syncope, speech difficulty, weakness, light-headedness, numbness and headaches. Hematological: Negative for adenopathy. Psychiatric/Behavioral: Negative for agitation, behavioral problems and sleep disturbance. The patient is not nervous/anxious. Medications: Allergies: Allergies Allergen Reactions Gluten Motrin [Ibuprofen] Nsaids Milk (Cow) Diarrhea Current Meds: Scheduled Meds: midodrine 5 mg Oral TID WC fat emulsion 250 mL IntraVENous Daily piperacillin-tazobactam 3,375 mg IntraVENous Q8H citalopram 40 mg Oral Daily sodium chloride flush 5-40 mL IntraVENous 2 times per day pantoprazole (PROTONIX) 40 mg in sodium chloride (PF) 0.9 % 10 mL injection 40 mg IntraVENous Daily enoxaparin 40 mg SubCUTAneous Daily Continuous Infusions: PN-Adult 2-in-1 Central Line (Standard) 50.8 mL/hr at 07/25/24 1824 sodium chloride 25 mL/hr at 07/25/24 0016 lactated ringers 75 mL/hr at 07/25/24 0602 PRN Meds: hyoscyamine, hydrOXYzine HCl, phenol, sodium chloride flush, sodium chloride, potassium chloride OR potassium alternative oral replacement OR potassium chloride, ondansetron OR ondansetron, acetaminophen OR acetaminophen, melatonin, HYDROmorphone Data: Past Medical History: has a past medical history of Crohn disease (HCC). Social History: reports that she has quit smoking. Her smoking use included cigarettes. She has never used smokeless tobacco. She reports that she does not currently use alcohol. She reports that she does not currently use drugs after having used the following drugs: Marijuana ([place]). Family History: History reviewed. No pertinent family history. Vitals: BP 91/61 Pulse 67 Temp 97.6 F (36.4 C) (Oral) Resp 15 Ht 1.702 m (5' 7.01 ) Wt 48.1 kg (106 lb 0.7 oz) LMP 07/04/2024 (Approximate) SpO2 98% BMI 16.60 kg/m Temp (24hrs), Av F (36.7 C), Min:97.6 F (36.4 C), Max:98.2 F (36.8 C) Recent Labs 07/23/24230207/24/24 0502 POCGLU 114* 107* I/O (24Hr): Intake/Output Summary (Last 24 hours) at 07/26/2024 1101 Last data filed at 07/25/2024 1205 Gross per 24 hour Intake 500 ml Output -- Net 500 ml Labs: Hematology: Recent Labs 07/24/24 1512 WBC 4.9 RBC 3.77* HGB 10.4* HCT 32.6* MCV 86.5 MCH 27.6 MCHC 31.9 RDW 15.9* PLT 219 MPV 9.7 Chemistry: Recent Labs 07/24/24 0500 07/25/24 0808 NA 140 140 K 3.6* 3.8 CL 107 106 CO2 25 27 GLUCOSE 108* 109* BUN <2* 5* CREATININE 0.5* 0.4* MG 1.9 2.1 ANIONGAP 8* 7* LABGLOM >90 >90 CALCIUM 8.6 8.3* PHOS 3.4 3.4 Recent Labs 07/23/24 23007/24/24 0502 POCGLU 114* 107* ABG:No results found for: POCPH , PHART , PH , POCPCO2 , BUL7WUC , PCO2 , POCPO2 , PO2ART , PO2 , POCHCO3 , ORE7HBA , HCO3 , NBEA , PBEA , BEART , BE , THGBART , THB , QGM9FZJ , LGIJ5XGR , S3XWNLLK , O2SAT , FIO2 Lab Results Component Value Date/Time SPECIAL Site: Body Fluid 05/03/2024 06:05 PM Lab Results Component Value Date/Time CULTURE POSITIVE Fluid Culture 05/03/2024 06:05 PM CULTURE 05/03/2024 06:05 PM DIRECT GRAM STAIN FROM BOTTLE: GRAM POSITIVE COCCI IN CHAINS CULTURE (A) 05/03/2024 06:05 PM VIRIDANS STREPTOCOCCUS GROUP Identified as : STREPTOCOCCUS ANGINOSUS Identification by MALDI-TOF CULTURE 05/03/2024 06:05 PM (NOTE) Direct Gram Stain from bottle result called to and read back by:WAQAS De Guzman 05/04/24 0120 Radiology: XR ABDOMEN FOR NG/OG/NE TUBE PLACEMENT Result Date: 07/21/2024 Enteric catheter tip terminates in the mid to distal gastric body. XR ABDOMEN (KUB) (SINGLE AP VIEW) Result Date: 07/20/2024 Dilated small bowel loops seen in left upper quadrant suggest ileus or partial obstruction. Contrast seen throughout the colon excluding complete obstruction. CT ABDOMEN PELVIS W IV CONTRAST Additional Contrast? Oral Result Date: 07/19/2024 Pathologically dilated small bowel upstream from a long segment small bowel stricture with wall thickening and perienteric inflammatory change. Findings consistent with partial obstruction There are several interloop fluid collections as described likely representing abscesses. Moderate volume of free fluid also noted in the pelvis. Physical Examination: Physical Exam Constitutional: General: She is not in acute distress. Appearance: Normal appearance. HENT: Head: Normocephalic and atraumatic. Mouth/Throat: Mouth: Mucous membranes are moist. Eyes: General: No scleral icterus. Extraocular Movements: Extraocular movements intact. Pupils: Pupils are equal, round, and reactive to light. Cardiovascular: Rate and Rhythm: Normal rate and regular rhythm. Heart sounds: No murmur heard. Pulmonary: Effort: No respiratory distress. Breath sounds: No wheezing or rales. Abdominal: General: There is no distension. Tenderness: There is abdominal tenderness. There is no rebound. Comments: Tenderness mainly in the lower abdomen Musculoskeletal: General: No tenderness or deformity. Cervical back: Normal range of motion. No rigidity or tenderness. Right lower leg: No edema. Left lower leg: No edema. Skin: Coloration: Skin is not jaundiced. Findings: No lesion or rash. Neurological: General: No focal deficit present. Mental Status: She is alert and oriented to person, place, and time. Sensory: No sensory deficit. Motor: No weakness. Psychiatric: Mood and Affect: Mood normal. Assessment: Hospital Problems Last Modified POA * (Principal) Crohn's colitis, unspecified complication (HCC) 07/19/2024 Yes Partial intestinal obstruction (HCC) 07/20/2024 Yes Crohn's disease of colon with complication (HCC) 07/19/2024 Yes Generalized abdominal pain 07/19/2024 Yes Nausea and vomiting 07/20/2024 Yes Abdominal pain, epigastric 07/23/2024 Yes Plan: Abdominal pain likely due to Crohn disease complicated by stricturing, partial small bowel obstruction, GI is following recommended to keep patient n.p.o., TPN and to transfer the patient to [facility] to be evaluated by IBD GI IBD surgeon and agriculture research director, awaiting transfer to [facility] Continue IV Zosyn Hypotension continue IV fluid, start midodrine, monitor blood pressure Symptomatic management Continue pantoprazole DVT prophylaxis IV fluid Nereyda Lucas MD 07/26/2024 11:01 AM Comprehensive Nutrition Assessment Type and Reason for Visit: Reassess Nutrition Recommendations/Plan: Continue current TPN at 50.8 mL/hr. Add MVI/trace minerals to next bag. Continue 250 mL IV lipids. Will provide 1500 kcals, 80 gm protein. Monitor labs and modify TPN as needed. Will monitor plans for restart of oral diet, weights, GI status, and plan of care. Malnutrition Assessment: Malnutrition Status: Severe malnutrition (07/21/24 1445) Context: Chronic Illness Findings of the 6 clinical characteristics of malnutrition: Energy Intake: 75% or less estimated energy requirements for 1 month or longer Weight Loss: Mild weight loss Body Fat Loss: Mild body fat loss Orbital, Buccal region Muscle Mass Loss: Severe muscle mass loss Clavicles (pectoralis & deltoids), Hand (interosseous), Calf (gastrocnemius) Fluid Accumulation: No fluid accumulation Inspector Materials And Processes Strength: Not Performed Nutrition Assessment: TPN/IL continues. No new labs available today. Pt remains NPO, allowed only sips with meds. Reports continued abdominal pain. Noted planning for transfer to [facility] as bed available. Meds reviewed: Robson JACKSON. Nutrition Related Findings: Hypoactive bowel sounds. LBM 07/25. Wound Type: None Current Nutrition Intake & Therapies: Average Meal Intake: NPO Average Supplements Intake: NPO Diet NPO Exceptions are: Sips of Water with Meds PN-Adult 2-in-1 Central Line (Standard) Current Parenteral Nutrition Orders: Type and Formula: 2-in-1 Custom (200 gm Dextrose, 80 gm AA) Lipids: 250ml, Daily Duration: Continuous Rate/Volume: 50.8 mL/hr (1220 mL/day) Current PN Order Provides: 1500 kcals, 80 gm protein Anthropometric Measures: Height: 170.2 cm (5' 7.01 ) [place] Body Weight (IBW): 135 lbs (61 kg) Admission Body Weight: 53.7 kg (118 lb 6.2 oz) Current Body Weight: 48.1 kg (106 lb 0.7 oz), 78.5 % IBW. Weight Source: Bed scale Current BMI (kg/m2): 16.6 Usual Body Weight: 58.1 kg (128 lb) (per pt report) % Weight Change (Calculated): -10.1 Weight Adjustment For: No Adjustment BMI Categories: Underweight (BMI less than 18.5) Estimated Daily Nutrient Needs: Energy Requirements Based On: Kcal/kg Weight Used for Energy Requirements: Admission Energy (kcal/day): 3729-6268 kcals/day Weight Used for Protein Requirements: Admission Protein (g/day): 60-80 gm pro/day Method Used for Fluid Requirements: ml/Kg Fluid (ml/day): 35 mL/kg = 7706-3922 mL/day or per MD Nutrition Diagnosis: Severe malnutrition, in context of chronic illness related to inadequate protein-energy intake as evidenced by criteria as identified in malnutrition assessment, poor intake prior to admission Inadequate oral intake related to altered GI function as evidenced by nutrition support - parenteral nutrition Nutrition Interventions: Food and/or Nutrient Delivery: Modify Parenteral Nutrition, Continue NPO Nutrition Education/Counseling: No recommendation at this time Coordination of Nutrition Care: Continue to monitor while inpatient Plan of Care discussed with: Patient; RN Goals: Goals: Meet at least 75% of estimated needs, prior to discharge Type of Goal: Continue current goal Previous Goal Met: Goal(s) Achieved Nutrition Monitoring and Evaluation: Behavioral-Environmental Outcomes: None Identified Food/Nutrient Intake Outcomes: Parenteral Nutrition Intake/Tolerance, Progression of Nutrition Physical Signs/Symptoms Outcomes: Biochemical Data, GI Status, Nausea or Vomiting, Fluid Status or Edema, Hemodynamic Status, Weight, Skin Discharge Planning: Parenteral Nutrition Kayleigh Finch RD, TA Contact: [phone] Images from the original note were not included. [facility] Progress Note Francine Hobson Date: 07/26/2024 LOS: 7 Reason for F/U : Interloop abscess on Zosyn Impression : Interloop multiple abscess on CT 07/19/24 Did have 05/01/24 multiloculated abscesses - IR - strep anginosus - no drain left in place Treated w augmentin then cipro and flagyl outpt till 07/20/24 CRP elevated 47 Currently partial small bowel obstruction Crohn's Disease 06/05/2024 colonscopy biopsy of rectum moderate to sever active ileitis with erosion and ulceration PSHx: Ileo-cecal resection 2013 Recommendations: The patient will continue on intravenous antimicrobial therapy with Zosyn while hospitalized There are current plans for the patient to be transferred to the [facility] for consideration of surgery If the patient ends up being discharged home the plan will be to switch to IV ertapenem to complete a 28-day course of therapy Office f/up in [address] Grover for infection. Please call [phone] for appointment . Infection Control Recommendations: [place] Precautions Contact isolation Discharge Planning: Estimated Length of IV antimicrobials: TBD Patient will need Midline Catheter Insertion/ PICC line Insertion: No Patient will need: Home IV , Infusion Center, SNF, LTAC: Undetermined Patient willneed outpatient wound care: No Medical Decision making / Summary of Stay: IR - abscess not accessible Disc w IR -all are much better in size compared to April CTAP Left small fluid collection w an ovarian cyst- and 3 smaller Improved abscesses., largest 2.5 cm on the right pelvis above the uterus, interloop Has flare from the IBD-with some reactive fluid in the anterior pelvic from the IBD No bowel fistula seen on CTAP GI placed on NPO. Patient not tolerating PO and nauseous after dilaudid 07/24 Tentative plan for [facility], d/c with primary Current evaluation:07/26/2024 Patient alert, reporting no nausea overnight with pain medication. Abdominal pain and cramping persistent even with bowel movements 07/25/2024. Receiving TPN which she believes helped give her energy to walk with PT. BS x4. Awaiting transfer. Fecal calprotectin 2730 BP 91/61 Pulse 67 Temp 97.6 F (36.4 C) (Oral) Resp 16 Ht 1.702 m (5' 7.01 ) Wt 48.1 kg (106 lb 0.7 oz) LMP 07/04/2024 (Approximate) SpO2 97% BMI 16.60 kg/m Temperature Range: Temp: 97.6 F (36.4 C) Temp Av F (36.7 C) Min: 97.6 F (36.4 C) Max: 98.2 F (36.8 C) Review of Systems Constitutional: Positive for appetite change. Negative for chills and fever. Respiratory: Negative for shortness of breath. Cardiovascular: Negative for chest pain. Gastrointestinal: Positive for abdominal distention, abdominal pain and nausea. Negative for vomiting. Genitourinary: Negative for difficulty urinating. Musculoskeletal: Negative for myalgias. Physical Examination : Physical Exam Constitutional: Appearance: She is not ill-appearing. HENT: Head: Normocephalic and atraumatic. Eyes: General: No scleral icterus. Abdominal: General: Bowel sounds are normal. There is distension. Tenderness: There is abdominal tenderness. There is no guarding or rebound. Musculoskeletal: Cervical back: No rigidity. Skin: Coloration: Skin is not jaundiced. Neurological: Mental Status: She is alert. Laboratory data: I have independently reviewed the followinglabs: CBC with Differential: Recent Labs 07/24/24 1512 WBC 4.9 HGB 10.4* HCT 32.6* PLT 219 BMP: Recent Labs 07/24/24 0500 07/25/24 0808 NA 140 140 K 3.6* 3.8 CL 107 106 CO2 25 27 BUN <2* 5* CREATININE 0.5* 0.4* MG 1.9 2.1 Hepatic Function Panel: No results for input(s): LABALBU , BILIDIR , IBILI , BILITOT , ALKPHOS , ALT , AST in the last 72 hours. Invalid input(s): PROT Fecal calprotectin 2730 No results found for: PROCAL Lab Results Component Value Date/Time CRP 47.1 07/21/2024 03:23 AM CRP 39.2 07/20/2024 06:15 AM CRP 30.2 07/19/2024 06:48 PM Lab Results Component Value Date SEDRATE 24 (H) 07/21/2024 No results found for: DDIMER Lab Results Component Value Date/Time FERRITIN 164 07/20/2024 06:15 AM FERRITIN 163 05/08/2024 06:03 AM No results found for: LDH No results found for: FIBRINOGEN No results found for requested labs within last 30 days. No results found for: COVID19 No results for input(s): VANCOTROUGH in the last 72 hours. Imaging Studies: See prior consult note Cultures: Results Procedure Component Value Units Date/Time Gastrointestinal Panel, Molecular [[id number]] Collected: 07/22/24 1259 Order Status: Completed Specimen: Stool Updated: 07/23/24 0957 Specimen Description .FECES Campylobacter PCR NEGATIVE: No Campylobacter spp. (jejuni or coli) DNA Detected Salmonella PCR NEGATIVE: No Salmonella spp. DNA Detected Shigatoxin Gene PCR NEGATIVE: No Shiga toxin-producing gene(s) Detected Shigella Sp PCR NEGATIVE: No Shigella spp. / EIEC DNA Detected Plesiomonas Shigelloides PCR NEGATIVE: No Plesionomas shigelloides DNA Detected Vibrio PCR NEGATIVE: No Vibrio (V. vulnificus, V, parahaemolyticus and V. cholerae) DNA Detected E Coli Enterotoxigenic PCR NEGATIVE: No Enterotoxigenic E. coli (ETEC) Heat-labile and heat-stable (LT/ST) DNA Detected Yersinia Enterocolitica PCR NEGATIVE: No Yersinia enterocolitica DNA Detected Medications: midodrine 5 mg Oral TID WC fat emulsion 250 mL IntraVENous Daily piperacillin-tazobactam 3,375 mg IntraVENous Q8H citalopram 40 mg Oral Daily sodium chloride flush 5-40 mL IntraVENous 2 times per day pantoprazole (PROTONIX) 40 mg in sodium chloride (PF) 0.9 % 10 mL injection 40 mg IntraVENous Daily enoxaparin 40 mg SubCUTAneous Daily Paul Joseluis Medical Student I have discussed the care of Francine Hobson including pertinent history and exam findings, with the student. I have edited the note to reflect my thoughts including the history, physical exam, and medical decisions. I have independently interviewed and examined the patient and I discussed the findings and therapeutic plan with the student and we collaborated on medical decision making for this patient. [employer] Colorectal surgery: Daily Progress Note PATIENT NAME: Francine Hobson TODAY'S DATE: 07/26/2024, 6:18 PM CC: Mild abdominal pain along with nausea SUBJECTIVE: Pt seen and examined at bedside. Patient's diet was discontinued and patient placed n.p.o. secondary to nausea. Okay for sips and chips. Continuing TPN. Afebrile, vital signs stable. No white count as of 07/23. Does not complain of any abdominal distention. Passing some amount of flatus, and had multiple liquid yesterday and this morning. Is amenable to transfer to [facility] for higher level care. Waiting on bed availability. OBJECTIVE: VITALS: BP 97/73 Pulse 74 Temp 97.6 F (36.4 C) (Oral) Resp 14 Ht 1.702 m (5' 7.01 ) Wt 48.1 kg (106 lb 0.7 oz) LMP 07/04/2024 (Approximate) SpO2 100% BMI 16.60 kg/m INTAKE/OUTPUT: No intake or output data in the 24 hours ending 07/26/24 1818 PHYSICAL EXAM: Physical Exam Vitals reviewed. Constitutional: General: She is not in acute distress. Appearance: She is not toxic-appearing. HENT: Head: Normocephalic and atraumatic. Right Ear: External ear normal. Left Ear: External ear normal. Nose: Nose normal. Mouth/Throat: Mouth: Mucous membranes are dry. Eyes: Extraocular Movements: Extraocular movements intact. Cardiovascular: Rate and Rhythm: Normal rate and regular rhythm. Pulmonary: Effort: Pulmonary effort is normal. No respiratory distress. Abdominal: General: There is no distension. Palpations: Abdomen is soft. Comments: Mild diffuse tenderness to palpation Skin: General: Skin is warm and dry. Capillary Refill: Capillary refill takes less than 2 seconds. Neurological: General: No focal deficit present. Mental Status: She is alert and oriented to person, place, and time. Psychiatric: Mood and Affect: Mood normal. Behavior: Behavior normal. Data: {LABS: No results found for this or any previous visit (from the past 24 hour(s)). Radiology Review: XR ABDOMEN (KUB) (SINGLE AP VIEW) Result Date: 07/20/2024 Dilated small bowel loops seen in left upper quadrant suggest ileus or partial obstruction. Contrast seen throughout the colon excluding complete obstruction. CT ABDOMEN PELVIS W IV CONTRAST Additional Contrast? Oral Result Date: 07/19/2024 Pathologically dilated small bowel upstream from a long segment small bowel stricture with wall thickening and perienteric inflammatory change. Findings consistent with partial obstruction There are several interloop fluid collections as described likely representing abscesses. Moderate volume of free fluid also noted in the pelvis. ASSESSMENT: Active Hospital Problems Diagnosis Date Noted Abdominal pain, epigastric [R10.13] 07/23/2024 Nausea and vomiting [R11.2] 07/20/2024 Crohn's colitis, unspecified complication (HCC) [K50.119] 07/19/2024 Generalized abdominal pain [R10.84] 05/02/2024 Partial intestinal obstruction (HCC) [K56.600] 01/26/2024 Crohn's disease of colon with complication (HCC) [K50.119] 06/04/2020 38 yo female with hx Crohn's presents with small bowel obstruction Plan: Continue medical mgmt and supportive care per primary TPN, NPO, okay for sips and chips Recommend K>4, Mag >2 Continue IV Zosyn Okay to ambulate and work with PT OT GI consulted, pt will need medical management of Crohn's disease Colorectal surgery not planning surgical intervention on this patient's small bowel. Recommend evaluation by general surgery service at [facility], has beed accepted but waiting on bed. This has been discussed with the patient's primary team. Ashley Loyola, DO 07/26/24 General Surgery PGY [address] Katz saw and examined the patient. I have edited the above and agree with the above. Hemant Katz Colorectal Surgery [facility] Progress Note Francine Hobson is a 38 y.o. female patient. Hospitalization Day:7 Chief consult reason: History of Crohn's disease Severe abdominal pain Partial small bowel obstruction on CT scan Abdominal abscesses Subjective: Patient seen and examined. Patient continues to report crampy abdominal pain however improved while NPO. Would like to try ice chips and water. Patient reports having bowel movement today. TPN continues Objective: VITALS: BP 93/60 Pulse 72 Temp 98.2 F (36.8 C) (Oral) Resp 16 Ht 1.702 m (5' 7.01 ) Wt 48.1 kg (106 lb 0.7 oz) LMP 07/04/2024 (Approximate) SpO2 97% BMI 16.60 kg/m TEMPERATURE: Current - Temp: 98.2 F (36.8 C); Max - Temp Av.2 F (36.8 C) Min: 98.1 F (36.7 C) Max: 98.2 F (36.8 C) Physical Assessment: General appearance: alert, cooperative and no distress Mental Status: oriented to person, place and time and normal affect Lungs: clear to auscultation bilaterally, normal effort Heart: regular rate and rhythm, no murmur Abdomen: soft, mild diffuse lower abdominal tenderness R>L, nondistended, hypoactive and distant bowel sounds Extremities: no edema, no redness, No clubbing Skin: warm, dry, no gross lesions or rashes CURRENT MEDICATIONS: Scheduled Meds: midodrine 5 mg Oral TID WC fat emulsion 250 mL IntraVENous Daily piperacillin-tazobactam 3,375 mg IntraVENous Q8H citalopram 40 mg Oral Daily sodium chloride flush 5-40 mL IntraVENous 2 times per day pantoprazole (PROTONIX) 40 mg in sodium chloride (PF) 0.9 % 10 mL injection 40 mg IntraVENous Daily enoxaparin 40 mg SubCUTAneous Daily Continuous Infusions: PN-Adult 2-in-1 Central Line (Standard) 50.8 mL/hr at 07/25/24 1824 sodium chloride 25 mL/hr at 07/25/24 0016 lactated ringers 75 mL/hr at 07/25/24 0602 PRN Meds:hyoscyamine, hydrOXYzine HCl, phenol, sodium chloride flush, sodium chloride, potassium chloride OR potassium alternative oral replacement OR potassium chloride, ondansetron OR ondansetron, acetaminophen OR acetaminophen, melatonin, HYDROmorphone Data Review: LABS and IMAGING: CBC Recent Labs 07/24/24 1512 WBC 4.9 HGB 10.4* HCT 32.6* MCV 86.5 MCHC 31.9 RDW 15.9* PLT 219 Immature PLTs No results found for: PLTFLUORE PT/INR No results for input(s): PROTIME , INR in the last 72 hours. ANEMIA STUDIES No results for input(s): IRONPERSAT , TIBC , IRON , FERRITIN , [id number] , FOLATE , OCCULTBLD in the last 72 hours. BMP Recent Labs 07/24/24 0500 07/25/24 0808 NA 140 140 K 3.6* 3.8 CL 107 106 CO2 25 27 BUN <2* 5* CREATININE 0.5* 0.4* GLUCOSE 108* 109* CALCIUM 8.6 8.3* MG 1.9 2.1 LFTS No results for input(s): ALKPHOS , ALT , AST , BILITOT , BILIDIR , ALBUMIN in the last 72 hours. AMYLASE/LIPASE/AMMONIA No results for input(s): AMYLASE , LIPASE , AMMONIA in the last 72 hours. Acute Hepatitis Panel Lab Results Component Value Date/Time HEPBSAG NONREACTIVE 01/27/2024 03:21 AM HEPCAB NONREACTIVE 01/27/2024 03:21 AM HEPBIGM NONREACTIVE 01/27/2024 03:21 AM HEPAIGM NONREACTIVE 01/27/2024 03:21 AM HCV Genotype No components found for: HEPATITISCGENOTYPE HCV Quantitative No results found for: HCVQNT LIVER WORK UP: AFP No results found for: AFP Alpha 1 antitrypsin No results found for: A1A Anti - Liver/Kidney Ab No results found for: LIVER-KIDNEYMICROSOMALAB MARIELLA No results found for: MARIELLA AMA No results found for: MITOAB ASMA No results found for: SMOOTHMUSCAB Ceruloplasmin No results found for: CERULOPLSM Celiac panel No results found for: TISSTRNTIIGG , TTGIGA , IGA IgG No results found for: IGG IgM No results found for: IGM GGT No results found for: GGT PT/INR No results for input(s): PROTIME , INR in the last 72 hours. Cancer Markers: CEA: No results found for: CEA Ca 125: No results found for: CA125 Ca 19-9: No results found for: CA199 AFP: No results found for: AFP Lactic acid: No results for input(s): LACTACIDWB in the last 72 hours. Radiology Review: IMPRESSION: Pathologically dilated small bowel upstream from a long segment small bowel stricture with wall thickening and perienteric inflammatory change. Findings consistent with partial obstruction There are several interloop fluid collections as described likely representing abscesses. Moderate volume of free fluid also noted in the pelvis. ENDOSCOPY Principal Problem: Crohn's colitis, unspecified complication (HCC) Active Problems: Partial intestinal obstruction (HCC) Crohn's disease of colon with complication (HCC) Generalized abdominal pain Nausea and vomiting Abdominal pain, epigastric Resolved Problems: * No resolved hospital problems. * GI Assessment: 38-year-old female with Crohn's ileocolitis s/p ileocecal resection 2006, intra-abdominal abscess 2006, recurrent partial small bowel obstruction who presents with abdominal pain, nausea and vomiting Crohn's disease complicated by stricturing, partial small bowel obstruction, and prior intra-abdominal abscesses. CT showing partial bowel obstruction and multiple fluid collections-possible abscess. Fecal Jairo Pro 2,730 Recommendations: Recommend TPN NPO except for meds, ice chips and popsicles Awaiting transfer to [facility] where they have a dedicated IBD team including IBD GI, IBD surgeon and door clamp operator Continue broad-spectrum antibiotics per ID discretion. Currently on Zosyn Levsin 0.25 mg IV Q 6 hrs PRN Plans for transfer to initiated by Dr Valentin 07/22/2024. Time spent reviewing chart, seeing patient, documentation and coordination of care for the above conditions, and discussing with attending: Around 35 minutes This plan was formulated in collaboration with Dr. Maguire Please feel free to contact me with any questions or concerns. Thank you for allowing me to participate in the care of your patient. Isabelle Gandhi, DIONISIO - BROACH TROUBLE SHOOTER on 07/26/2024 at 7:30 AM [facility] Please note that this note was generated using a voice recognition dictation software. Although every effort was made to ensure the accuracy of this automated nuclear medicine supervisor, some errors in nuclear medicine supervisor may have occurred. Attested: I have discussed the care of Francine Hobson and I have examined the patient myselft and taken ros and hpi , including pertinent history and exam findings, with the author of this note . I have reviewed the price elements of all parts of the encounter with the nurse practitioner/resident. I agree with the assessment, plan and orders as documented by the above health care provider More than 50% of the time was spent taking care of this patient in addition to the nurse practitioner time. That also included history taking follow-up physical examination and review of system. Images from the original note were not included. [facility] Office: [phone] Marco Delarosa DO, Dominic Gonzalez DO, Clifton Blanc DO, Froylan Snowden DO, Paula Jensen MD, Radha Greer MD, Nitish Parra MD, Maya Hernández MD, Porfirio García MD, Nroma Smith MD, Tanya Mercado MD, Eloy Alves DO, Heidi Roche MD, Arthur Schroeder MD, Jose Manuel Delarosa DO, Shikha Pastrana MD, Obed Lilly DO, Rosangela Koehler MD, Alysa De Santiago MD, Dianne Agudelo MD, Judith Nicole MD, London Morales MD, Gamal Granger MD, Abby Salgado MD, Nereyda Lucas MD, Dru Shannon MD, Shahid Reddy MD, Ashley Schaffer DO, Cruzito Holloway MD, Eloy Valentin MD, Tony Valentin MD, Alix Acosta CNP, Shefali Hills CNP, Ashley Baker CNP, Muna Brandon DNP, Neida Mars CNP, Jigna De Dios CNP, Angelina Peguero, BROACH TROUBLE SHOOTER, Adwoa Lei, BROACH TROUBLE SHOOTER, Carmen Wray, JOHNC, Kathy Apple, PAOliviaC, Jaz Castaneda, BROACH TROUBLE SHOOTER, Robert Huertas, BROACH TROUBLE SHOOTER, Vanessa Saleh, BROACH TROUBLE SHOOTER, Philly Mcgarry, BROACH TROUBLE SHOOTER, Josefina Higgins, BROACH TROUBLE SHOOTER, Chanel Mccullough, AIRBRUSH ARTIST TECHNICAL, Ghassan Schwartz, BROACH TROUBLE SHOOTER, Lissett Root, BROACH TROUBLE SHOOTER, Lu Cooley, BROACH TROUBLE SHOOTER [facility] IN-PATIENT SERVICE [facility] Progress Note 07/25/2024 12:37 PM Name: Francine Hobson Acct: [id number] Room: [address] [place] [address] IP Day: 6 Admit Date: 07/19/2024 12:43 PM PCP: Dalia Apple DO Code Status: Full Code Subjective: C/C: Chief Complaint Patient presents with Abdominal Pain Vomiting Interval History Status: not changed. Seen and examined, report abdominal pain to loose small bowel movement today morning Blood pressure soft, was given bolus of 500 normal saline, and will start patient on midodrine Lab vital sign consultants note reviewed Awaiting transfer to [facility] Brief History: Per documentation This is a 38-year-old female with a history of Crohn's disease who presents to the hospital for evaluation of small bowel obstruction as well as for management of abdominal abscess. CT scan showed pathologically dilated small bowel upstream from a long segment of small bowel stricture with wall thickening and perienteric inflammatory changes consistent with a partial obstruction. She also had moderate volume of free fluid in the pelvis in addition to several fluid collection Review of Systems: Review of Systems Constitutional: Positive for fatigue. Negative for appetite change and fever. HENT: Negative for sore throat and trouble swallowing. Eyes: Negative for visual disturbance. Respiratory: Negative for cough, shortness of breath and wheezing. Cardiovascular: Negative for chest pain, palpitations and leg swelling. Gastrointestinal: Positive for abdominal pain and diarrhea. Negative for blood in stool, constipation, nausea and vomiting. Endocrine: Negative for polydipsia and polyuria. Genitourinary: Negative for decreased urine volume, difficulty urinating, dysuria, flank pain, frequency, hematuria and urgency. Musculoskeletal: Negative for back pain, gait problem and joint swelling. Skin: Negative for color change, rash and wound. Allergic/Immunologic: Negative for immunocompromised state. Neurological: Negative for dizziness, syncope, speech difficulty, weakness, light-headedness, numbness and headaches. Hematological: Negative for adenopathy. Psychiatric/Behavioral: Negative for agitation, behavioral problems and sleep disturbance. The patient is not nervous/anxious. Medications: Allergies: Allergies Allergen Reactions Gluten Motrin [Ibuprofen] Nsaids Milk (Cow) Diarrhea Current Meds: Scheduled Meds: midodrine 5 mg Oral TID WC fat emulsion 250 mL IntraVENous Daily piperacillin-tazobactam 3,375 mg IntraVENous Q8H citalopram 40 mg Oral Daily sodium chloride flush 5-40 mL IntraVENous 2 times per day pantoprazole (PROTONIX) 40 mg in sodium chloride (PF) 0.9 % 10 mL injection 40 mg IntraVENous Daily enoxaparin 40 mg SubCUTAneous Daily Continuous Infusions: PN-Adult 2-in-1 Central Line (Standard) PN-Adult 2-in-1 Central Line (Standard) 50 mL/hr at 07/24/24 1829 sodium chloride 25 mL/hr at 07/25/24 0016 lactated ringers 75 mL/hr at 07/25/24 0602 PRN Meds: hydrOXYzine HCl, phenol, sodium chloride flush, sodium chloride, potassium chloride OR potassium alternative oral replacement OR potassium chloride, ondansetron OR ondansetron, acetaminophen OR acetaminophen, melatonin, HYDROmorphone Data: Past Medical History: has a past medical history of Crohn disease (HCC). Social History: reports that she has quit smoking. Her smoking use included cigarettes. She has never used smokeless tobacco. She reports that she does not currently use alcohol. She reports that she does not currently use drugs after having used the following drugs: Marijuana ([place]). Family History: History reviewed. No pertinent family history. Vitals: BP (!) 86/57 Pulse 68 Temp 98.1 F (36.7 C) (Oral) Resp 15 Ht 1.702 m (5' 7.01 ) Wt 48.1 kg (106 lb 0.7 oz) LMP 07/04/2024 (Approximate) SpO2 94% BMI 16.60 kg/m Temp (24hrs), Av.2 F (36.8 C), Min:97.9 F (36.6 C), Max:98.6 F (37 C) Recent Labs 07/23/24230207/24/24 0502 POCGLU 114* 107* I/O (24Hr): Intake/Output Summary (Last 24 hours) at 07/25/2024 1237 Last data filed at 07/25/2024 1205 Gross per 24 hour Intake 560 ml Output -- Net 560 ml Labs: Hematology: Recent Labs 07/23/24 0607/24/24 1512 WBC 4.9 4.9 RBC 4.15 3.77* HGB 11.6* 10.4* HCT 38.1 32.6* MCV 91.8 86.5 MCH 28.0 27.6 MCHC 30.4 31.9 RDW 15.7* 15.9* PLT 177 219 MPV 9.9 9.7 Chemistry: Recent Labs 07/22/24 1754 07/23/24 0607/24/24 0500 07/25/24 0808 NA -- 137 140 140 K -- 3.8 3.6* 3.8 CL -- 107 107 106 CO2 -- 18* 25 27 GLUCOSE -- 86 108* 109* BUN -- <2* <2* 5* CREATININE -- 0.4* 0.5* 0.4* MG -- 2.0 1.9 2.1 ANIONGAP -- 12 8* 7* LABGLOM -- >90 >90 >90 CALCIUM -- 8.4* 8.6 8.3* PHOS -- 2.9 3.4 3.4 LACTACIDWB 1.0 -- -- -- Recent Labs 07/23/2462607/23/24230207/24/24 0502 AST 16 -- -- ALT <5* -- -- ALKPHOS 64 -- -- BILITOT 0.2 -- -- BILIDIR <0.1 -- -- TRIG 124 -- -- POCGLU -- 114* 107* ABG:No results found for: POCPH , PHART , PH , POCPCO2 , JLB3JOI , PCO2 , POCPO2 , PO2ART , PO2 , POCHCO3 , FII3PAN , HCO3 , NBEA , PBEA , BEART , BE , THGBART , THB , IXZ1ITX , OIFU4EOU , R9TTQDLE , O2SAT , FIO2 Lab Results Component Value Date/Time SPECIAL Site: Body Fluid 05/03/2024 06:05 PM Lab Results Component Value Date/Time CULTURE POSITIVE Fluid Culture 05/03/2024 06:05 PM CULTURE 05/03/2024 06:05 PM DIRECT GRAM STAIN FROM BOTTLE: GRAM POSITIVE COCCI IN CHAINS CULTURE (A) 05/03/2024 06:05 PM VIRIDANS STREPTOCOCCUS GROUP Identified as : STREPTOCOCCUS ANGINOSUS Identification by MALDI-TOF CULTURE 05/03/2024 06:05 PM (NOTE) Direct Gram Stain from bottle result called to and read back by:WAQAS De Guzman 05/04/24 1750 Radiology: XR ABDOMEN FOR NG/OG/NE TUBE PLACEMENT Result Date: 07/21/2024 Enteric catheter tip terminates in the mid to distal gastric body. XR ABDOMEN (KUB) (SINGLE AP VIEW) Result Date: 07/20/2024 Dilated small bowel loops seen in left upper quadrant suggest ileus or partial obstruction. Contrast seen throughout the colon excluding complete obstruction. CT ABDOMEN PELVIS W IV CONTRAST Additional Contrast? Oral Result Date: 07/19/2024 Pathologically dilated small bowel upstream from a long segment small bowel stricture with wall thickening and perienteric inflammatory change. Findings consistent with partial obstruction There are several interloop fluid collections as described likely representing abscesses. Moderate volume of free fluid also noted in the pelvis. Physical Examination: Physical Exam Constitutional: General: She is not in acute distress. Appearance: Normal appearance. HENT: Head: Normocephalic and atraumatic. Mouth/Throat: Mouth: Mucous membranes are moist. Eyes: General: No scleral icterus. Extraocular Movements: Extraocular movements intact. Pupils: Pupils are equal, round, and reactive to light. Cardiovascular: Rate and Rhythm: Normal rate and regular rhythm. Heart sounds: No murmur heard. Pulmonary: Effort: No respiratory distress. Breath sounds: No wheezing or rales. Abdominal: General: There is no distension. Tenderness: There is abdominal tenderness. There is no rebound. Comments: Tenderness mainly in the lower abdomen Musculoskeletal: General: No tenderness or deformity. Cervical back: Normal range of motion. No rigidity or tenderness. Right lower leg: No edema. Left lower leg: No edema. Skin: Coloration: Skin is not jaundiced. Findings: No lesion or rash. Neurological: General: No focal deficit present. Mental Status: She is alert and oriented to person, place, and time. Sensory: No sensory deficit. Motor: No weakness. Psychiatric: Mood and Affect: Mood normal. Assessment: Hospital Problems Last Modified POA * (Principal) Crohn's colitis, unspecified complication (HCC) 07/19/2024 Yes Partial intestinal obstruction (HCC) 07/20/2024 Yes Crohn's disease of colon with complication (HCC) 07/19/2024 Yes Generalized abdominal pain 07/19/2024 Yes Nausea and vomiting 07/20/2024 Yes Abdominal pain, epigastric 07/23/2024 Yes Plan: Abdominal pain likely due to Crohn disease complicated by stricturing, partial small bowel obstruction, GI is following recommended to keep patient n.p.o., TPN and to transfer the patient to [facility] to be evaluated by IBD GI IBD surgeon and agriculture research director, awaiting transfer to [facility] Continue IV Zosyn Hypotension continue IV fluid, start midodrine, monitor blood pressure Symptomatic management Continue pantoprazole DVT prophylaxis IV fluid Nereyda Lucas MD 07/25/2024 12:37 PM Comprehensive Nutrition Assessment Type and Reason for Visit: Reassess Nutrition Recommendations/Plan: Continue custom TPN. In next bag, increase Dextrose to 200 gm, and AA to 80 gm; increase Ca; remove MVI/trace minerals. Continue 250 mL IV lipids. Will provide 1500 kcals, 80 gm protein. Monitor labs and modify TPN as needed. Will monitor tolerance/intakes of clear liquids, weights, GI status, and plan of care. Malnutrition Assessment: Malnutrition Status: Severe malnutrition (07/21/24 1445) Context: Chronic Illness Findings of the 6 clinical characteristics of malnutrition: Energy Intake: 75% or less estimated energy requirements for 1 month or longer Weight Loss: Mild weight loss Body Fat Loss: Mild body fat loss Orbital, Buccal region Muscle Mass Loss: Severe muscle mass loss Clavicles (pectoralis & deltoids), Hand (interosseous), Calf (gastrocnemius) Fluid Accumulation: No fluid accumulation Inspector [employer] Strength: Not Performed Nutrition Assessment: TPN/IL continues. Labs reviewed - Ca 8.3 mg/dL. Pt remains NPO with sips of water with meds. Pt reports abdominal pain continues but was worse with food (reports was given meal tray with eggs on accident over the weekend). Discussed with RN. Noted planning for transfer to [facility] as bed available. Meds reviewed: Antibiotics, Zofran PRN. Nutrition Related Findings: Active/Hypoactive bowel sounds. LBM 07/25. Wound Type: None Current Nutrition Intake & Therapies: Average Meal Intake: NPO Average Supplements Intake: NPO PN-Adult 2-in-1 Central Line (Standard) Diet NPO Exceptions are: Sips of Water with Meds Current Parenteral Nutrition Orders: Type and Formula: 2-in-1 Custom (175 gm Dextrose, 70 gm AA) Lipids: 250ml, Daily Duration: Continuous Rate/Volume: 50 mL/hr (1200 mL/day) Current PN Order Provides: 1375 kcals, 70 gm protein Anthropometric Measures: Height: 170.2 cm (5' 7.01 ) [place] Body Weight (IBW): 135 lbs (61 kg) Admission Body Weight: 53.7 kg (118 lb 6.2 oz) Current Body Weight: 48.1 kg (106 lb 0.7 oz), 78.5 % IBW. Weight Source: Bed scale Current BMI (kg/m2): 16.6 Usual Body Weight: 58.1 kg (128 lb) (per pt report) % Weight Change (Calculated): -10.1 Weight Adjustment For: No Adjustment BMI Categories: Underweight (BMI less than 18.5) Estimated Daily Nutrient Needs: Energy Requirements Based On: Kcal/kg Weight Used for Energy Requirements: Admission Energy (kcal/day): 6773-0298 kcals/day Weight Used for Protein Requirements: Admission Protein (g/day): 60-80 gm pro/day Method Used for Fluid Requirements: ml/Kg Fluid (ml/day): 35 mL/kg = 1154-0141 mL/day or per MD Nutrition Diagnosis: Severe malnutrition, in context of chronic illness related to inadequate protein-energy intake as evidenced by criteria as identified in malnutrition assessment, poor intake prior to admission Inadequate oral intake related to altered GI function as evidenced by nutrition support - parenteral nutrition Nutrition Interventions: Food and/or Nutrient Delivery: Modify Parenteral Nutrition, Continue NPO Nutrition Education/Counseling: No recommendation at this time Coordination of Nutrition Care: Continue to monitor while inpatient Plan of Care discussed with: Patient; RN Goals: Goals: Meet at least 75% of estimated needs, prior to discharge Type of Goal: Continue current goal Previous Goal Met: Progressing toward Goal(s) Nutrition Monitoring and Evaluation: Behavioral-Environmental Outcomes: None Identified Food/Nutrient Intake Outcomes: Parenteral Nutrition Intake/Tolerance, Progression of Nutrition Physical Signs/Symptoms Outcomes: Biochemical Data, GI Status, Nausea or Vomiting, Fluid Status or Edema, Hemodynamic Status, Weight, Skin Discharge Planning: Too soon to determine Kayleigh Finch RD, TA Contact: [phone] [facility] - Progress Note Today's Date and Time: 07/25/2024, 10:14 AM Impression : Interloop multiple abscess on CT 07/19/24 Did have 05/01/24 multiloculated abscesses - IR - strep anginosus - no drain left in place Treated w augmentin then cipro and flagyl outpt till 07/20/24 CRP elevated 47 Currently partial small bowel obstruction Crohn's Disease 06/05/2024 colonscopy biopsy of rectum moderate to sever active ileitis with erosion and ulceration PSHx: Ileo-cecal resection 2012 Recommendations: The patient will continue on intravenous antimicrobial therapy with Zosyn while hospitalized There are current plans for the patient to be transferred to the [facility] for consideration of surgery If the patient ends up being discharged home the plan will be to switch to IV ertapenem to complete a 28-day course of therapy Office f/up in [address] Grover for infection. Please call [phone] for appointment . Medical Decision Making/Summary/Discussion: 025 IR - abscess not accessible Disc w IR -all are much better in size compared to April CTAP Left small fluid collection w an ovarian cyst- and 3 smaller Improved abscesses., largest 2.5 cm on the right pelvis above the uterus, interloop Has flare from the IBD-with some reactive fluid in the anterior pelvic from the IBD No bowel fistula seen on CTAP GI placed on NPO. Patient not tolerating PO and nauseous after dilaudid 07/24 Tentative plan for [facility], d/c with primary Infection Control Recommendations [place] Precautions Contact isolation Antimicrobial Stewardship Recommendations Simplification of therapy Targeted therapy Coordination of Outpatient Care: Estimated Length of IV antimicrobials:TBD Patient will need Midline Catheter Insertion: TBD Patient will need PICC line Insertion:TBD Patient will need: Home IV , Infusion Center, SNF, LTAC: TBD Patient will need outpatient wound care: Chief complaint/reason for consultation: Intra-abdominal infection History of Present Illness: Francine Hobson is a 38 y.o.-year-old female who was initially admitted on 07/19/2024. Patient seen at the request of DrSelvin INITIAL HISTORY: Francine Hobson is a 38 y.o.-year-old female with PMHx of chron's disease with recurent perirectal abscess presenting with sudden abdominal pain, nausea, and vomitting. She has been in a persistent Crohn's flair since hospital discharge 05/2024 after treatment for a perirectal abscess. She underwent aspiration and drainage which was cultured as Strep anginosus, received zosyn 8 days and completed augmentin 875 po bid for 2 weeks outpatient per consultation with Dr. Scanlon. She subsequently followed up with Dr. Maguire who prescribed 2 months course of cipro and flagy completed one week ago. She has utilized medications for symptoms management but no anti-inflammatory or biologic therapy from concern of her rectal abscess. She is planning on consultation with the [facility] but has not done so yet. Her abd pain nausea and vomitting has worsened in the past week but suddenly 4 am 07/19 completed limited her function delaying ED presentation. She is tolerated PO intake with liquids, having liquid stools. She is a prior smoker. CT was obtained 07/19 demonstrating Pathologically dilated small bowel upstream from a long segment small bowel stricture with wall thickening and perienteric inflammatory change. Findings consistent with partial obstruction There are several interloop fluid collections as described likely representing abscesses. GI, Gen surg, and colorectal surgery were subsequently consulted for management. Infectious disease was consulted for guidance on antibiotic therapy given past treatment for intraabdominal infections 07/22 Patient not agreeable to NG tube Pulled it out Reports she had one episode of stool last night Cannot remember whether it was runny or formed GI panel negative Stool calprotectin pending 07/24 Unintended pureed diet lead to nausea 07/23, required zofran. BM liquid diarrhea 07/23, flatus. Started on TPN 07/23 and was able to shower. Currently appetite is reduced but plan is to trial liquid diet. Crampy abdominal pain, tenderness, and distention. Patient voided this morning. Bed not available 07/24 for transfer to [facility] for IBD specialist but still planning on transfer. BS present/hyperactive x4, distended abdomen. 07/25 Abdominal pain after liquid diet transitioned to NPO per GI. Nauseous with dilaudid 07/24, retrialing with zofran today. Waiting call to [facility] for transfer. BM 07/25 liquid x4 without concern for consistency or frequency per patient. BS present x4. CURRENT EVALUATION 07/25/2024 BP (!) 86/56 Pulse 67 Temp 98.6 F (37 C) (Oral) Resp 15 Ht 1.702 m (5' 7.01 ) Wt 48.1 kg (106 lb 0.7 oz) LMP 07/04/2024 (Approximate) SpO2 99% BMI 16.60 kg/m Medications reviewed: On IV zosyn Labs, X rays reviewed: 07/25/2024 BUN: <2 Cr: 0.5-->0.4 WBC: 8.8 - 5.5-->4.9 Hb: 14.1 -11.8-->11.6 Plat: 294 CRP: 30.2 -39 -47.1 Calprotectin pending Cultures: GI stool panel negative Imaging: CT ABDOMEN PELVIS W IV CONTRAST Additional Contrast? Oral Result Date: 07/19/2024 There is pathologically dilated small bowel upstream from a long segment of small bowel mural thickening and extensive perienteric inflammation. There are multiple interloop fluid collections, for example, right mid pelvis image 131/2 measuring 2.5 x 1.6 cm. Left paracentral pelvis on the same image measuring 1.6 x 1.1 cm. Enteric suture line in the right lower quadrant. Moderate volume of unorganized free fluid more anteriorly in the pelvis. CT AP 05/02/2024 Dilated proximal small bowel loops containing contrast with long segment narrowing involving a loop of ileum seen in the mid abdomen with circumferential wall thickening consistent with active inflammation. This is partially surrounded by the multiloculated abscess seen in the right lower abdomen measuring 7.1 by 7.5 cm on image 123. This is contiguous with 2 additional large abscesses seen in the right adnexa measuring 6.3 x 5.4 cm and in the upper pelvis in the midline measuring 5.3 x 4.8 cm. Overall similar to recent prior examination I have personally reviewed the past medical history, past surgical history, medications, social history, and family history, and I have updated the database accordingly. Past Medical History: Past Medical History: Diagnosis Date Crohn disease (HCC) Past Surgical History: Past Surgical History: Procedure Laterality Date BOWEL RESECTION SECTION COLONOSCOPY N/A 06/05/2024 COLONOSCOPY BIOPSY performed by Maru Maguire MD at [facility] ENDO CT ABSCESS DRAINAGE 05/03/2024 CT ABSCESS DRAIN SUBCUTANEOUS 05/03/2024 Jose Manuel Torre MD [facility] CT SCAN TONSILLECTOMY AND ADENOIDECTOMY TUMOR REMOVAL Left left shoulder, benign WISDOM TOOTH EXTRACTION Medications: sodium chloride 500 mL IntraVENous Once fat emulsion 250 mL IntraVENous Daily piperacillin-tazobactam 3,375 mg IntraVENous Q8H citalopram 40 mg Oral Daily sodium chloride flush 5-40 mL IntraVENous 2 times per day pantoprazole (PROTONIX) 40 mg in sodium chloride (PF) 0.9 % 10 mL injection 40 mg IntraVENous Daily enoxaparin 40 mg SubCUTAneous Daily Social History: Social History Socioeconomic History Marital status: Single Spouse name: Not on file Number of children: Not on file Years of education: Not on file Highest education level: Not on file Occupational History Not on file Tobacco Use Smoking status: Former Types: Cigarettes Smokeless tobacco: Never Vaping Use Vaping status: Every Day Substances: Nicotine Substance and Sexual Activity Alcohol use: Not Currently Comment: occass. Drug use: Not Currently Types: Marijuana ([place]) Comment: occassional Sexual activity: Yes Partners: Male Other Topics Concern Not on file Social History Narrative Not on file Social Determinants of Health Financial Resource Strain: Low Risk (11/24/2022) Received from [facility] Overall Financial Resource Strain (CARDIA) Difficulty of Paying Living Expenses: Not hard at all Food Insecurity: No Food Insecurity (07/20/2024) Hunger Vital Sign Worried About Running Out of Food in the Last Year: Never true Ran Out of Food in the Last Year: Never true Transportation Needs: No Transportation Needs (07/20/2024) PRAPARE - Transportation Lack of Transportation (Medical): No Lack of Transportation (Non-Medical): No Physical Activity: Not on file Stress: Not on file Social Connections: Unknown (06/03/2021) Received from [facility] Social Connections Frequency of Communication with Friends and Family: Not asked Frequency of Social Gatherings with Friends and Family: Not asked Intimate Partner Violence: Unknown (06/03/2021) Received from [facility] Intimate Partner Violence Fear of Current or Ex-Partner: Not asked Emotionally Abused: Not asked Physically Abused: Not asked Sexually Abused: Not asked Housing Stability: Low Risk (07/20/2024) Housing Stability Vital Sign Unable to Pay for Housing in the Last Year: No Number of Times Moved in the Last Year: 0 Homeless in the Last Year: No Family History: History reviewed. No pertinent family history. Allergies: Gluten, Motrin [ibuprofen], Nsaids, and Milk (cow) Review of Systems: Constitutional: No fevers or chills. No systemic complaints Cardiovascular: No chest pain or palpitations.No shortness of breath. No KNOWLES Lung: No shortness of breath or cough. No sputum production Abdomen: no nausea, vomiting. Liquid bowel movements. acknowledges abdominal pain, and cramps. Genitourinary: No increased urinary frequency, or dysuria. No hematuria. No suprapubic or CVA pain Physical Examination : Patient Vitals for the past 8 hrs: BP Temp Temp src Pulse Resp SpO2 07/25/24 0835 (!) 86/56 -- -- -- -- -- 07/25/24 0730 (!) 87/58 98.6 F (37 C) Oral 67 15 99 % 07/25/24 0726 -- -- -- -- 16 -- General Appearance: Awake, alert, and in no apparent distress Pulmonary/Chest: Clear to auscultation, without wheezes, rales, or rhonchi. No dullness to percussion. Cardiovascular: Regular rate and rhythm without murmurs, rubs, or gallops. Abdomen: Distended, tender, BS x 4 Medical Decision Making -Laboratory: I have independently reviewed/ordered the following labs: CBC with Differential: Recent Labs 07/23/24 0627 07/24/24 1512 WBC 4.9 4.9 HGB 11.6* 10.4* HCT 38.1 32.6* PLT 177 219 BMP: Recent Labs 07/24/24 0500 07/25/24 0808 NA 140 140 K 3.6* 3.8 CL 107 106 CO2 25 27 BUN <2* 5* CREATININE 0.5* 0.4* MG 1.9 2.1 Hepatic Function Panel: Recent Labs 07/23/24 0627 BILIDIR <0.1 IBILI Can not be calculated BILITOT 0.2 ALKPHOS 64 ALT <5* AST 16 No results for input(s): RPR in the last 72 hours. No results for input(s): HIV in the last 72 hours. No results for input(s): BC in the last 72 hours. Lab Results Component Value Date/Time BACTERIA None 07/19/2024 02:53 PM MUCUS 1+ 07/19/2024 02:53 PM RBC 3.77 07/24/2024 03:12 PM WBC 4.9 07/24/2024 03:12 PM TURBIDITY Cloudy 07/19/2024 02:53 PM Lab Results Component Value Date/Time CREATININE 0.4 07/25/2024 08:08 AM GLUCOSE 109 07/25/2024 08:08 AM Medical Decision Making-Imaging: XR ABDOMEN FOR NG/OG/NE TUBE PLACEMENT Result Date: 07/21/2024 EXAMINATION: ONE SUPINE XRAY VIEW(S) OF THE ABDOMEN 07/21/2024 9:41 pm COMPARISON: 07/20/2024, 07/19/2024 HISTORY: ORDERING SYSTEM PROVIDED HISTORY: ngt placement TECHNOLOGIST PROVIDED HISTORY: ngt placement Portable?->Yes Reason for Exam: port. upright FINDINGS: The enteric catheter tip terminates in the region of the mid to distal gastric body. Again identified are dilated loops of small bowel secondary to known enteritis and partial small bowel obstruction. No free air is identified. Enteric catheter tip terminates in the mid to distal gastric body. XR ABDOMEN (KUB) (SINGLE AP VIEW) Result Date: 07/20/2024 EXAMINATION: ONE SUPINE XRAY VIEW(S) OF THE ABDOMEN 07/20/2024 7:16 am COMPARISON: None. HISTORY: ORDERING SYSTEM PROVIDED HISTORY: abdominal pain TECHNOLOGIST PROVIDED HISTORY: abdominal pain Reason for Exam: port sup FINDINGS: Lines and tubes: None Bowel gas pattern: Contrast seen throughout the colon.Gas-filled distended bowel loops in the left upper quadrant suggest at least partial obstruction or ileus.Given limitations of supine imaging, no evidence of free air, pneumatosis or portal venous gas. Abnormal calcifications: None Bones: Within normal limits for age Other: None Dilated small bowel loops seen in left upper quadrant suggest ileus or partial obstruction. Contrast seen throughout the colon excluding complete obstruction. CT ABDOMEN PELVIS W IV CONTRAST Additional Contrast? Oral Result Date: 07/19/2024 EXAMINATION: CT OF THE ABDOMEN AND PELVIS WITH CONTRAST 07/19/2024 2:25 pm TECHNIQUE: CT of the abdomen and pelvis was performed with the administration of intravenous contrast. Multiplanar reformatted images are provided for review. Automated exposure control, iterative reconstruction, and/or weight based adjustment of the mA/kV was utilized to reduce the radiation dose to as low as reasonably achievable. COMPARISON: None. HISTORY: ORDERING SYSTEM PROVIDED HISTORY: hx chrons/abscesses/severe abdominal pain TECHNOLOGIST PROVIDED HISTORY: hx chrons/abscesses/severe abdominal pain Decision Support Exception - unselect if not a suspected or confirmed emergency medical condition->Emergency Medical Condition (MA) FINDINGS: Lower Chest: No infiltrate or effusion. Liver: There is normal hepatic parenchymal enhancement. No focal hepatic mass. Portal and hepatic veins are patent. No intrahepatic biliary ductal dilation. Biliary: Gallbladder is nondistended. No gallstones are evident. No pericholecystic inflammatory change. Spleen: Normal in size. Pancreas: No pancreatic ductal dilation. No discrete pancreatic parenchymal lesion. Adrenal Glands: Normal morphology. Kidneys / Ureters: Kidneys enhance symmetrically. No hydronephrosis. No focal renal mass. No urinary calculi. GI/Bowel: There is pathologically dilated small bowel upstream from a long segment of small bowel mural thickening and extensive perienteric inflammation. There are multiple interloop fluid collections, for example, right mid pelvis image 131/2 measuring 2.5 x 1.6 cm. Left paracentral pelvis on the same image measuring 1.6 x 1.1 cm. Enteric suture line in the right lower quadrant. Moderate volume of unorganized free fluid more anteriorly in the pelvis. Aorta/IVC: Aorta is normal in caliber. No evidence of aneurysm. Unremarkable IVC. Bladder: Nondistended. Bones/Soft Tissues: No acute osseus abnormality is identified. Pathologically dilated small bowel upstream from a long segment small bowel stricture with wall thickening and perienteric inflammatory change. Findings consistent with partial obstruction There are several interloop fluid collections as described likely representing abscesses. Moderate volume of free fluid also noted in the pelvis. Medical Decision [id number]: Results Procedure Component Value Units Date/Time Gastrointestinal Panel, Molecular [[id number]] Collected: 07/22/24 1259 Order Status: Completed Specimen: Stool Updated: 07/23/24 0577 Specimen Description .FECES Campylobacter PCR NEGATIVE: No Campylobacter spp. (jejuni or coli) DNA Detected Salmonella PCR NEGATIVE: No Salmonella spp. DNA Detected Shigatoxin Gene PCR NEGATIVE: No Shiga toxin-producing gene(s) Detected Shigella Sp PCR NEGATIVE: No Shigella spp. / EIEC DNA Detected Plesiomonas Shigelloides PCR NEGATIVE: No Plesionomas shigelloides DNA Detected Vibrio PCR NEGATIVE: No Vibrio (V. vulnificus, V, parahaemolyticus and V. cholerae) DNA Detected E Coli Enterotoxigenic PCR NEGATIVE: No Enterotoxigenic E. coli (ETEC) Heat-labile and heat-stable (LT/ST) DNA Detected Yersinia Enterocolitica PCR NEGATIVE: No Yersinia enterocolitica DNA Detected Paul Huggins Medical student I have discussed the care of Francine Hobson including pertinent history and exam findings, with the student. I have edited the note to reflect my thoughts including the history, physical exam, and medical decisions. I have independently interviewed and examined the patient and I discussed the findings and therapeutic plan with the student and we collaborated on medical decision making for this patient. [employer] Colorectal surgery: Daily Progress Note PATIENT NAME: Francine Hobson TODAY'S DATE: 07/25/2024, 2:15 PM CC: Mild abdominal pain along with nausea SUBJECTIVE: Pt seen and examined at bedside. Patient's diet was discontinued and patient placed n.p.o. secondary to nausea yesterday. Continuing TPN. Afebrile, vital signs stable. No white count as of 07/23. Does not complain of any abdominal distention. Passing some amount of flatus, and had multiple liquid yesterday and this morning. Is amenable to transfer to [facility] for higher level care. OBJECTIVE: VITALS: BP (!) 86/57 Pulse 68 Temp 98.1 F (36.7 C) (Oral) Resp 15 Ht 1.702 m (5' 7.01 ) Wt 48.1 kg (106 lb 0.7 oz) LMP 07/04/2024 (Approximate) SpO2 94% BMI 16.60 kg/m INTAKE/OUTPUT: Intake/Output Summary (Last 24 hours) at 07/25/2024 1415 Last data filed at 07/25/2024 1205 Gross per 24 hour Intake 560 ml Output -- Net 560 ml PHYSICAL EXAM: Physical Exam Vitals reviewed. Constitutional: General: She is not in acute distress. Appearance: She is not toxic-appearing. HENT: Head: Normocephalic and atraumatic. Right Ear: External ear normal. Left Ear: External ear normal. Nose: Nose normal. Mouth/Throat: Mouth: Mucous membranes are dry. Eyes: Extraocular Movements: Extraocular movements intact. Cardiovascular: Rate and Rhythm: Normal rate and regular rhythm. Pulmonary: Effort: Pulmonary effort is normal. No respiratory distress. Abdominal: General: There is no distension. Palpations: Abdomen is soft. Comments: Mild diffuse tenderness to palpation Skin: General: Skin is warm and dry. Capillary Refill: Capillary refill takes less than 2 seconds. Neurological: General: No focal deficit present. Mental Status: She is alert and oriented to person, place, and time. Psychiatric: Mood and Affect: Mood normal. Behavior: Behavior normal. Data: {LABS: Recent Results (from the past 24 hour(s)) CBC Collection Time: 07/24/24 3:12 PM Result Value Ref Range WBC 4.9 3.5 - 11.3 k/uL RBC 3.77 (L) 3.95 - 5.11 m/uL Hemoglobin 10.4 (L) 11.9 - 15.1 g/dL Hematocrit 32.6 (L) 36.3 - 47.1 % MCV 86.5 82.6 - 102.9 fL MCH 27.6 25.2 - 33.5 pg MCHC 31.9 28.4 - 34.8 g/dL RDW 15.9 (H) 11.8 - 14.4 % Platelets 219 138 - 453 k/uL MPV 9.7 8.1 - 13.5 fL NRBC Automated 0.0 0.0 per 100 WBC Basic Metabolic Panel Collection Time: 07/25/24 8:08 AM Result Value Ref Range Sodium 140 136 - 145 mmol/L Potassium 3.8 3.7 - 5.3 mmol/L Chloride 106 98 - 107 mmol/L CO2 27 20 - 31 mmol/L Anion Gap 7 (L) 9 - 16 mmol/L Glucose 109 (H) 74 - 99 mg/dL BUN 5 (L) 6 - 20 mg/dL Creatinine 0.4 (L) 0.6 - 0.9 mg/dL Est, Glom Filt Rate >90 >60 mL/min/1.73m2 Calcium 8.3 (L) 8.6 - 10.4 mg/dL Magnesium Collection Time: 07/25/24 8:08 AM Result Value Ref Range Magnesium 2.1 1.6 - 2.6 mg/dL Phosphorus Collection Time: 07/25/24 8:08 AM Result Value Ref Range Phosphorus 3.4 2.5 - 4.5 mg/dL Radiology Review: XR ABDOMEN (KUB) (SINGLE AP VIEW) Result Date: 07/20/2024 Dilated small bowel loops seen in left upper quadrant suggest ileus or partial obstruction. Contrast seen throughout the colon excluding complete obstruction. CT ABDOMEN PELVIS W IV CONTRAST Additional Contrast? Oral Result Date: 07/19/2024 Pathologically dilated small bowel upstream from a long segment small bowel stricture with wall thickening and perienteric inflammatory change. Findings consistent with partial obstruction There are several interloop fluid collections as described likely representing abscesses. Moderate volume of free fluid also noted in the pelvis. ASSESSMENT: Active Hospital Problems Diagnosis Date Noted Abdominal pain, epigastric [R10.13] 07/23/2024 Nausea and vomiting [R11.2] 07/20/2024 Crohn's colitis, unspecified complication (HCC) [K50.119] 07/19/2024 Generalized abdominal pain [R10.84] 05/02/2024 Partial intestinal obstruction (HCC) [K56.600] 01/26/2024 Crohn's disease of colon with complication (HCC) [K50.119] 06/04/2020 38 yo female with hx Crohn's presents with small bowel obstruction Plan: Continue medical mgmt and supportive care per primary Start clear liquid diet. Recommend K>4, Mag >2 Continue IV Zosyn Okay to ambulate and work with PT OT GI consult, pt will need medical management of Crohn's disease Colorectal surgery not planning surgical intervention on this patient's small bowel. Recommend evaluation by general surgery service at [facility]. This has been discussed with the patient's primary team. Ashley Loyola, 07/25/24 2:15 PM General Surgery PGY [address] Katz saw and examined the patient. I have edited the above and agree with the above. Hemant Katz Colorectal Surgery [facility] Gastroenterology Progress Note Francine Hobson is a 38 y.o. female patient. Hospitalization Day:6 Chief consult reason: History of Crohn's disease Severe abdominal pain Partial small bowel obstruction on CT scan Abdominal abscesses Subjective: Patient seen and examined. Patient continues to report crampy abdominal pain however improved while maintaining n.p.o. status. Objective: VITALS: BP 96/62 Pulse 70 Temp 97.9 F (36.6 C) (Oral) Resp 15 Ht 1.702 m (5' 7.01 ) Wt 48.1 kg (106 lb 0.7 oz) LMP 07/04/2024 (Approximate) SpO2 98% BMI 16.60 kg/m TEMPERATURE: Current - Temp: 97.9 F (36.6 C); Max - Temp Av.9 F (36.6 C) Min: 97.9 F (36.6 C) Max: 97.9 F (36.6 C) Physical Assessment: General appearance: alert, cooperative and no distress Mental Status: oriented to person, place and time and normal affect Lungs: clear to auscultation bilaterally, normal effort Heart: regular rate and rhythm, no murmur Abdomen: soft, mild diffuse lower abdominal tenderness R>L, nondistended, hypoactive and distant bowel sounds Extremities: no edema, no redness, No clubbing Skin: warm, dry, no gross lesions or rashes CURRENT MEDICATIONS: Scheduled Meds: fat emulsion 250 mL IntraVENous Daily piperacillin-tazobactam 3,375 mg IntraVENous Q8H citalopram 40 mg Oral Daily sodium chloride flush 5-40 mL IntraVENous 2 times per day pantoprazole (PROTONIX) 40 mg in sodium chloride (PF) 0.9 % 10 mL injection 40 mg IntraVENous Daily enoxaparin 40 mg SubCUTAneous Daily Continuous Infusions: PN-Adult 2-in-1 Central Line (Standard) 50 mL/hr at 07/24/24 1829 sodium chloride 25 mL/hr at 07/25/24 0016 lactated ringers 75 mL/hr at 07/25/24 0602 PRN Meds:hydrOXYzine HCl, phenol, sodium chloride flush, sodium chloride, potassium chloride OR potassium alternative oral replacement OR potassium chloride, ondansetron OR ondansetron, acetaminophen OR acetaminophen, melatonin, HYDROmorphone Data Review: LABS and IMAGING: CBC Recent Labs 07/23/2462607/24/24 1512 WBC 4.9 4.9 HGB 11.6* 10.4* HCT 38.1 32.6* MCV 91.8 86.5 MCHC 30.4 31.9 RDW 15.7* 15.9* PLT 177 219 Immature PLTs No results found for: PLTFLUORE PT/INR No results for input(s): PROTIME , INR in the last 72 hours. ANEMIA STUDIES No results for input(s): IRONPERSAT , TIBC , IRON , FERRITIN , [id number] , FOLATE , OCCULTBLD in the last 72 hours. BMP Recent Labs 07/23/24 0607/24/24 0500 NA 137 140 K 3.8 3.6* CL 107 107 CO2 18* 25 BUN <2* <2* CREATININE 0.4* 0.5* GLUCOSE 86 108* CALCIUM 8.4* 8.6 MG 2.0 1.9 LFTS Recent Labs 07/23/24 06 ALKPHOS 64 ALT <5* AST 16 BILITOT 0.2 BILIDIR <0.1 ALBUMIN 2.7* AMYLASE/LIPASE/AMMONIA No results for input(s): AMYLASE , LIPASE , AMMONIA in the last 72 hours. Acute Hepatitis Panel Lab Results Component Value Date/Time HEPBSAG NONREACTIVE 01/27/2024 03:21 AM HEPCAB NONREACTIVE 01/27/2024 03:21 AM HEPBIGM NONREACTIVE 01/27/2024 03:21 AM HEPAIGM NONREACTIVE 01/27/2024 03:21 AM HCV Genotype No components found for: HEPATITISCGENOTYPE HCV Quantitative No results found for: HCVQNT LIVER WORK UP: AFP No results found for: AFP Alpha 1 antitrypsin No results found for: A1A Anti - Liver/Kidney Ab No results found for: LIVER-KIDNEYMICROSOMALAB MARIELLA No results found for: MARIELLA AMA No results found for: MITOAB ASMA No results found for: SMOOTHMUSCAB Ceruloplasmin No results found for: CERULOPLSM Celiac panel No results found for: TISSTRNTIIGG , TTGIGA , IGA IgG No results found for: IGG IgM No results found for: IGM GGT No results found for: GGT PT/INR No results for input(s): PROTIME , INR in the last 72 hours. Cancer Markers: CEA: No results found for: CEA Ca 125: No results found for: CA125 Ca 19-9: No results found for: CA199 AFP: No results found for: AFP Lactic acid: Recent Labs 07/22/24 0850 07/22/24 1754 LACTACIDWB 1.0 1.0 Radiology Review: IMPRESSION: Pathologically dilated small bowel upstream from a long segment small bowel stricture with wall thickening and perienteric inflammatory change. Findings consistent with partial obstruction There are several interloop fluid collections as described likely representing abscesses. Moderate volume of free fluid also noted in the pelvis. ENDOSCOPY Principal Problem: Crohn's colitis, unspecified complication (HCC) Active Problems: Partial intestinal obstruction (HCC) Crohn's disease of colon with complication (HCC) Generalized abdominal pain Nausea and vomiting Abdominal pain, epigastric Resolved Problems: * No resolved hospital problems. * GI Assessment: 38-year-old female with Crohn's ileocolitis s/p ileocecal resection 2005, intra-abdominal abscess 2006, recurrent partial small bowel obstruction who presents with abdominal pain, nausea and vomiting Crohn's disease complicated by stricturing, partial small bowel obstruction, and prior intra-abdominal abscesses. CT showing partial bowel obstruction and multiple fluid collections-possible abscess Recommendations: Recommend TPN NPO except for meds. NO ice chips or popsicles Recommend transfer to [facility] where they have a dedicated IBD team including IBD GI, IBD surgeon and door clamp operator Continue broad-spectrum antibiotics per ID discretion. Currently on Zosyn Levsin 0.25 mg IV Q 6 hrs PRN Plans for transfer to initiated by Dr Valentin 07/22/2024. Time spent reviewing chart, seeing patient, documentation and coordination of care for the above conditions, and discussing with attending: Around 35 minutes This plan was formulated in collaboration with Dr. Maguire Please feel free to contact me with any questions or concerns. Thank you for allowing me to participate in the care of your patient. Isabelle Gandhi, SHOULDER JOINER - BROACH TROUBLE SHOOTER on 07/25/2024 at 6:07 AM [facility] Please note that this note was generated using a voice recognition dictation software. Although every effort was made to ensure the accuracy of this automated nuclear medicine supervisor, some errors in nuclear medicine supervisor may have occurred. Attested: I have discussed the care of Francine Hobson and I have examined the patient myselft and taken ros and hpi , including pertinent history and exam findings, with the author of this note . I have reviewed the price elements of all parts of the encounter with the nurse practitioner/resident. I agree with the assessment, plan and orders as documented by the above health care provider More than 50% of the time was spent taking care of this patient in addition to the nurse practitioner time. That also included history taking follow-up physical examination and review of system. [facility] Progress Note Francine Hobson is a 38 y.o. female patient. Hospitalization Day:5 Chief consult reason: History of Crohn's disease Severe abdominal pain Partial small bowel obstruction on CT scan Abdominal abscesses Subjective: Patient seen and examined. Patient continues to report crampy abdominal pain as well as right lower quadrant abdominal pain. No nausea or vomiting. Objective: VITALS: BP 92/62 Pulse 60 Temp 97.9 F (36.6 C) (Oral) Resp 16 Ht 1.702 m (5' 7.01 ) Wt 48.1 kg (106 lb 0.7 oz) LMP 07/04/2024 (Approximate) SpO2 98% BMI 16.60 kg/m TEMPERATURE: Current - Temp: 97.9 F (36.6 C); Max - Temp Av F (36.7 C) Min: 97.9 F (36.6 C) Max: 98.1 F (36.7 C) Physical Assessment: General appearance: alert, cooperative and no distress Mental Status: oriented to person, place and time and normal affect Lungs: clear to auscultation bilaterally, normal effort Heart: regular rate and rhythm, no murmur Abdomen: soft, mild diffuse lower abdominal tenderness R>L, nondistended, hypoactive and distant bowel sounds Extremities: no edema, no redness, No clubbing Skin: warm, dry, no gross lesions or rashes CURRENT MEDICATIONS: Scheduled Meds: fat emulsion 250 mL IntraVENous Daily piperacillin-tazobactam 3,375 mg IntraVENous Q8H citalopram 40 mg Oral Daily sodium chloride flush 5-40 mL IntraVENous 2 times per day pantoprazole (PROTONIX) 40 mg in sodium chloride (PF) 0.9 % 10 mL injection 40 mg IntraVENous Daily enoxaparin 40 mg SubCUTAneous Daily Continuous Infusions: PN-Adult 2-in-1 Central Line (Standard) PN-Adult 2-in-1 Central Line (Standard) 41.7 mL/hr at 07/23/24 1915 sodium chloride lactated ringers 75 mL/hr (07/23/24 1349) PRN Meds:hydrOXYzine HCl, phenol, sodium chloride flush, sodium chloride, potassium chloride OR potassium alternative oral replacement OR potassium chloride, ondansetron OR ondansetron, acetaminophen OR acetaminophen, melatonin, HYDROmorphone Data Review: LABS and IMAGING: CBC Recent Labs 07/22/24 0239 07/23/24 0627 WBC 5.5 4.9 HGB 11.8* 11.6* HCT 39.4 38.1 MCV 91.8 91.8 MCHC 29.9 30.4 RDW 15.4* 15.7* PLT 294 177 Immature PLTs No results found for: PLTFLUORE PT/INR No results for input(s): PROTIME , INR in the last 72 hours. ANEMIA STUDIES No results for input(s): IRONPERSAT , TIBC , IRON , FERRITIN , [id number] , FOLATE , OCCULTBLD in the last 72 hours. BMP Recent Labs 07/22/24 0239 07/23/24 0627 07/24/24 0500 NA 135* 137 140 K 4.6 3.8 3.6* CL 107 107 107 CO2 14* 18* 25 BUN <2* <2* <2* CREATININE 0.5* 0.4* 0.5* GLUCOSE 72* 86 108* CALCIUM 8.7 8.4* 8.6 MG -- 2.0 1.9 LFTS Recent Labs 07/22/24 0239 07/23/24 0627 ALKPHOS 72 64 ALT <5* <5* AST 15 16 BILITOT 0.2 0.2 BILIDIR -- <0.1 ALBUMIN 3.1* 2.7* AMYLASE/LIPASE/AMMONIA No results for input(s): AMYLASE , LIPASE , AMMONIA in the last 72 hours. Acute Hepatitis Panel Lab Results Component Value Date/Time HEPBSAG NONREACTIVE 01/27/2024 03:21 AM HEPCAB NONREACTIVE 01/27/2024 03:21 AM HEPBIGM NONREACTIVE 01/27/2024 03:21 AM HEPAIGM NONREACTIVE 01/27/2024 03:21 AM HCV Genotype No components found for: HEPATITISCGENOTYPE HCV Quantitative No results found for: HCVQNT LIVER WORK UP: AFP No results found for: AFP Alpha 1 antitrypsin No results found for: A1A Anti - Liver/Kidney Ab No results found for: LIVER-KIDNEYMICROSOMALAB MARIELLA No results found for: MARIELLA AMA No results found for: MITOAB ASMA No results found for: SMOOTHMUSCAB Ceruloplasmin No results found for: CERULOPLSM Celiac panel No results found for: TISSTRNTIIGG , TTGIGA , IGA IgG No results found for: IGG IgM No results found for: IGM GGT No results found for: GGT PT/INR No results for input(s): PROTIME , INR in the last 72 hours. Cancer Markers: CEA: No results found for: CEA Ca 125: No results found for: CA125 Ca 19-9: No results found for: CA199 AFP: No results found for: AFP Lactic acid: Recent Labs 07/22/24 0239 07/22/24 0850 07/22/24 1754 LACTACIDWB 0.9 1.0 1.0 Radiology Review: IMPRESSION: Pathologically dilated small bowel upstream from a long segment small bowel stricture with wall thickening and perienteric inflammatory change. Findings consistent with partial obstruction There are several interloop fluid collections as described likely representing abscesses. Moderate volume of free fluid also noted in the pelvis. ENDOSCOPY Principal Problem: Crohn's colitis, unspecified complication (HCC) Active Problems: Partial intestinal obstruction (HCC) Crohn's disease of colon with complication (HCC) Generalized abdominal pain Nausea and vomiting Abdominal pain, epigastric Resolved Problems: * No resolved hospital problems. * GI Assessment: 38-year-old female with Crohn's ileocolitis s/p ileocecal resection 2005, intra-abdominal abscess 2006, recurrent partial small bowel obstruction who presents with abdominal pain, nausea and vomiting Crohn's disease complicated by stricturing, partial small bowel obstruction, and prior intra-abdominal abscesses. CT showing partial bowel obstruction and multiple fluid collections-possible abscess Recommendations: Recommend TPN NPO except for meds. NO ice chips or popsicles Recommend transfer to [facility] where they have a dedicated IBD team including IBD GI, IBD surgeon and door clamp operator Continue broad-spectrum antibiotics per ID discretion. Currently on Zosyn Levsin 0.25 mg IV x 1 dose Plans for transfer to initiated by Dr Valentin 07/22/2024. Time spent reviewing chart, seeing patient, documentation and coordination of care for the above conditions, and discussing with attending: Around 35 minutes This plan was formulated in collaboration with Dr. Maguire Please feel free to contact me with any questions or concerns. Thank you for allowing me to participate in the care of your patient. Isabelle Gandhi, DIONISIO - BROACH TROUBLE SHOOTER on 07/24/2024 at 2:29 PM [facility] Please note that this note was generated using a voice recognition dictation software. Although every effort was made to ensure the accuracy of this automated nuclear medicine supervisor, some errors in nuclear medicine supervisor may have occurred. Attested: I have discussed the care of Francine Hobson and I have examined the patient myselft and taken ros and hpi , including pertinent history and exam findings, with the author of this note . I have reviewed the price elements of all parts of the encounter with the nurse practitioner/resident. I agree with the assessment, plan and orders as documented by the above health care provider More than 50% of the time was spent taking care of this patient in addition to the nurse practitioner time. That also included history taking follow-up physical examination and review of system. Comprehensive Nutrition Assessment Type and Reason for Visit: Reassess Nutrition Recommendations/Plan: Continue custom TPN. In next bag, increase rate to 50 mL/hr (1200 mL/day), Dextrose to 175 gm, and AA to 70 gm; increase Mg and K+; add MVI/trace minerals. Continue 250 mL IV lipids. Will provide 1375 kcals, 70 gm protein. Monitor labs and modify TPN as needed. Will monitor tolerance/intakes of clear liquids, weights, GI status, and plan of care. Malnutrition Assessment: Malnutrition Status: Severe malnutrition (07/21/24 1445) Context: Chronic Illness Findings of the 6 clinical characteristics of malnutrition: Energy Intake: 75% or less estimated energy requirements for 1 month or longer Weight Loss: Mild weight loss Body Fat Loss: Mild body fat loss Orbital, Buccal region Muscle Mass Loss: Severe muscle mass loss Clavicles (pectoralis & deltoids), Hand (interosseous), Calf (gastrocnemius) Fluid Accumulation: No fluid accumulation Inspector Materials [employer] Processes Strength: Not Performed Nutrition Assessment: TPN/IL continues. Discussed with RN. Labs reviewed - K 3.6 mmol/L. Pt remains on clear liquid diet - taking some liquids. Pt having watery BM's. Weight fluctuations noted. Meds include: Zofran PRN. Noted discussion of plans for transfer to [facility]. Nutrition Related Findings: No edema. Watery BM's - 07/23. Wound Type: None Current Nutrition Intake & Therapies: Average Meal Intake: 1-25%, 26-50% Average Supplements Intake: None Ordered ADULT DIET; Clear Liquid PN-Adult 2-in-1 Central Line (Standard) Current Parenteral Nutrition Orders: Type and Formula: 2-in-1 Custom Lipids: 250ml, Daily Duration: Continuous Rate/Volume: 41.7 mL/hr (1000 mL/day) Current PN Order Provides: 1210 kcals, 50 gm protein Anthropometric Measures: Height: 170.2 cm (5' 7.01 ) [place] Body Weight (IBW): 135 lbs (61 kg) Admission Body Weight: 53.7 kg (118 lb 6.2 oz) Current Body Weight: 48.1 kg (106 lb 0.7 oz), 78.5 % IBW. Weight Source: Bed scale Current BMI (kg/m2): 16.6 Usual Body Weight: 58.1 kg (128 lb) (per pt report) % Weight Change (Calculated): -10.1 Weight Adjustment For: No Adjustment BMI Categories: Underweight (BMI less than 18.5) Estimated Daily Nutrient Needs: Energy Requirements Based On: Kcal/kg Weight Used for Energy Requirements: Admission Energy (kcal/day): 5163-2411 kcals/day Weight Used for Protein Requirements: Admission Protein (g/day): 60-80 gm pro/day Method Used for Fluid Requirements: ml/Kg Fluid (ml/day): 35 mL/kg = 0081-9731 mL/day or per MD Nutrition Diagnosis: Severe malnutrition, in context of chronic illness related to inadequate protein-energy intake as evidenced by criteria as identified in malnutrition assessment, poor intake prior to admission Inadequate oral intake related to altered GI function as evidenced by nutrition support - parenteral nutrition Nutrition Interventions: Food and/or Nutrient Delivery: Modify Parenteral Nutrition, Continue Current Diet Nutrition Education/Counseling: No recommendation at this time Coordination of Nutrition Care: Continue to monitor while inpatient Plan of Care discussed with: RN; Patient Goals: Goals: Meet at least 75% of estimated needs, prior to discharge Type of Goal: New goal Previous Goal Met: Progressing toward Goal(s) Nutrition Monitoring and Evaluation: Behavioral-Environmental Outcomes: None Identified Food/Nutrient Intake Outcomes: Parenteral Nutrition Intake/Tolerance, Food and Nutrient Intake, Progression of Nutrition Physical Signs/Symptoms Outcomes: Biochemical Data, GI Status, Nausea or Vomiting, Fluid Status or Edema, Hemodynamic Status, Weight, Skin Discharge Planning: Too soon to determine Kayleigh Finch RD, LD Contact: [phone] Images from the original note were not included. [facility] Office: [phone] Marco Delarosa DO, Dominic Gonzalez DO, Clifton Blanc DO, Froylan Snowden DO, Paula Jensen MD, Radha Greer MD, Nitish Parra MD, Maya Hernández MD, Porfirio García MD, Norma Smith MD, Tanya Mercado MD, Eloy Alves DO, Heidi Roche MD, Arthur Schroeder MD, Jose Manuel Delarosa DO, Shikha Pastrana MD, Obed Lilly, DO, Rosangela Koehler MD, Alysa De Santiago MD, Dianne Agudelo MD, Judith Nicole MD, London Morales MD, Gamal Granger MD, Abby Salgado MD, Nereyda Lucas MD, Dru Shannon MD, Shahid Reddy MD, Ashley Schaffer DO, Cruzito Holloway MD, Eloy Valentin MD, Tony Valentin MD, Alix Acosta, BROACH TROUBLE SHOOTER, Shefali Hills, BROACH TROUBLE SHOOTER, Ashley Baker, BROACH TROUBLE SHOOTER, Muna Brandon, CRESENCIO, Neida Mars, BROACH TROUBLE SHOOTER, Jigna De Dios, BROACH TROUBLE SHOOTER, Angelina Peguero, BROACH TROUBLE SHOOTER, Adwoa Lei, BROACH TROUBLE SHOOTER, Carmen Wray, PA-C, Kathy Apple, PA-C, Jaz Castaneda, BROACH TROUBLE SHOOTER, Robert Huertas, BROACH TROUBLE SHOOTER, Vanessa Saleh, BROACH TROUBLE SHOOTER, Philly Mcgarry, BROACH TROUBLE SHOOTER, Josefina Higgins, BROACH TROUBLE SHOOTER, Chanel Mccullough, AIRBRUSH ARTIST TECHNICAL, Ghassan Schwartz, BROACH TROUBLE SHOOTER, Lissett Root, BROACH TROUBLE SHOOTER, Lu Cooley, BROACH TROUBLE SHOOTER [facility] IN-PATIENT SERVICE [facility] Progress Note 07/24/2024 8:13 AM Name: Francine Hobson Acct: [id number] Room: [address] [place] [address] Day: 5 Admit Date: 07/19/2024 12:43 PM PCP: Dalia Apple DO Code Status: Full Code Subjective: C/C: Chief Complaint Patient presents with Abdominal Pain Vomiting Interval History Status: improved. Seen and examined Patient was started on clear liquid Per patient she is able to take it She had some nausea and Zofran was given Currently waiting on transfer to [facility] Blood pressure is soft Is on IV fluid and TPN Colorectal surgery and ID on board Brief History: Per documentation This is a 38-year-old female with a history of Crohn's disease who presents to the hospital for evaluation of small bowel obstruction as well as for management of abdominal abscess. CT scan showed pathologically dilated small bowel upstream from a long segment of small bowel stricture with wall thickening and perienteric inflammatory changes consistent with a partial obstruction. She also had moderate volume of free fluid in the pelvis in addition to several fluid collection Medications: Allergies: Allergies Allergen Reactions Gluten Motrin [Ibuprofen] Nsaids Milk (Cow) Diarrhea Current Meds: Scheduled Meds: fat emulsion 250 mL IntraVENous Daily piperacillin-tazobactam 3,375 mg IntraVENous Q8H citalopram 40 mg Oral Daily sodium chloride flush 5-40 mL IntraVENous 2 times per day pantoprazole (PROTONIX) 40 mg in sodium chloride (PF) 0.9 % 10 mL injection 40 mg IntraVENous Daily enoxaparin 40 mg SubCUTAneous Daily Continuous Infusions: PN-Adult 2-in-1 Central Line (Standard) 41.7 mL/hr at 07/23/24 1915 sodium chloride lactated ringers 75 mL/hr (07/23/24 1349) PRN Meds: hydrOXYzine HCl, phenol, sodium chloride flush, sodium chloride, potassium chloride OR potassium alternative oral replacement OR potassium chloride, ondansetron OR ondansetron, acetaminophen OR acetaminophen, melatonin, HYDROmorphone Data: Past Medical History: has a past medical history of Crohn disease (HCC). Social History: reports that she has quit smoking. Her smoking use included cigarettes. She has never used smokeless tobacco. She reports that she does not currently use alcohol. She reports that she does not currently use drugs after having used the following drugs: Marijuana ([place]). Family History: History reviewed. No pertinent family history. Vitals: BP 92/62 Pulse 60 Temp 97.9 F (36.6 C) (Oral) Resp 16 Ht 1.702 m (5' 7.01 ) Wt 48.1 kg (106 lb 0.7 oz) LMP 07/04/2024 (Approximate) SpO2 98% BMI 16.60 kg/m Temp (24hrs), Av F (36.7 C), Min:97.9 F (36.6 C), Max:98.1 F (36.7 C) Recent Labs 07/23/24 2303 07/24/24 0502 POCGLU 114* 107* I/O (24Hr): Intake/Output Summary (Last 24 hours) at 07/24/2024 0813 Last data filed at 07/23/2024 1821 Gross per 24 hour Intake 1950 ml Output -- Net 1950 ml Labs: Hematology: Recent Labs 07/22/2423807/23/24626 WBC 5.5 4.9 RBC 4.29 4.15 HGB 11.8* 11.6* HCT 39.4 38.1 MCV 91.8 91.8 MCH 27.5 28.0 MCHC 29.9 30.4 RDW 15.4* 15.7* PLT 294 177 MPV 9.4 9.9 Chemistry: Recent Labs 07/22/2423807/22/24 0850 07/22/24 1754 07/23/24 0627 07/24/24 0500 NA 135* -- -- 137 140 K 4.6 -- -- 3.8 3.6* CL 107 -- -- 107 107 CO2 14* -- -- 18* 25 GLUCOSE 72* -- -- 86 108* BUN <2* -- -- <2* <2* CREATININE 0.5* -- -- 0.4* 0.5* MG -- -- -- 2.0 1.9 ANIONGAP 14 -- -- 12 8* LABGLOM >90 -- -- >90 >90 CALCIUM 8.7 -- -- 8.4* 8.6 PHOS -- -- -- 2.9 3.4 LACTACIDWB 0.9 1.0 1.0 -- -- Recent Labs 07/22/24 02307/23/24 0627 07/23/24 2303 07/24/24 0502 AST 15 16 -- -- ALT <5* <5* -- -- ALKPHOS 72 64 -- -- BILITOT 0.2 0.2 -- -- BILIDIR -- <0.1 -- -- TRIG -- 124 -- -- POCGLU -- -- 114* 107* ABG:No results found for: POCPH , PHART , PH , POCPCO2 , ZAB0WUR , PCO2 , POCPO2 , PO2ART , PO2 , POCHCO3 , LKW6GRE , HCO3 , NBEA , PBEA , BEART , BE , THGBART , THB , HZQ9OGA , VCJZ2LCB , N2XUHZEL , O2SAT , FIO2 Lab Results Component Value Date/Time SPECIAL Site: Body Fluid 05/03/2024 06:05 PM Lab Results Component Value Date/Time CULTURE POSITIVE Fluid Culture 05/03/2024 06:05 PM CULTURE 05/03/2024 06:05 PM DIRECT GRAM STAIN FROM BOTTLE: GRAM POSITIVE COCCI IN CHAINS CULTURE (A) 05/03/2024 06:05 PM VIRIDANS STREPTOCOCCUS GROUP Identified as : STREPTOCOCCUS ANGINOSUS Identification by MALDI-TOF CULTURE 05/03/2024 06:05 PM (NOTE) Direct Gram Stain from bottle result called to and read back by:WAQAS De Guzman 05/04/24 1750 Radiology: XR ABDOMEN FOR NG/OG/NE TUBE PLACEMENT Result Date: 07/21/2024 Enteric catheter tip terminates in the mid to distal gastric body. XR ABDOMEN (KUB) (SINGLE AP VIEW) Result Date: 07/20/2024 Dilated small bowel loops seen in left upper quadrant suggest ileus or partial obstruction. Contrast seen throughout the colon excluding complete obstruction. CT ABDOMEN PELVIS W IV CONTRAST Additional Contrast? Oral Result Date: 07/19/2024 Pathologically dilated small bowel upstream from a long segment small bowel stricture with wall thickening and perienteric inflammatory change. Findings consistent with partial obstruction There are several interloop fluid collections as described likely representing abscesses. Moderate volume of free fluid also noted in the pelvis. Physical Examination: General appearance: alert, cooperative and no distress Mental Status: oriented to person, place and time Lungs: clear to auscultation bilaterally, normal effort Heart: regular rate and rhythm, no murmur Abdomen: soft, tender to palpation Extremities: no edema, redness, tenderness in the calves Assessment: Hospital Problems Last Modified POA * (Principal) Crohn's colitis, unspecified complication (HCC) 07/19/2024 Yes Partial intestinal obstruction (HCC) 07/20/2024 Yes Crohn's disease of colon with complication (HCC) 07/19/2024 Yes Generalized abdominal pain 07/19/2024 Yes Nausea and vomiting 07/20/2024 Yes Abdominal pain, epigastric 07/23/2024 Yes Plan: Abdominal pain likely due to intraabdominal abscess Partial SBO in the setting of stricture Hx of Crohn's disease. Colorectal surgery on board Continue IV fluid and TPN Continue with clear liquid diet and advance as tolerated Antibiotic per ID Pending transfer to [facility] Dietitian on board for severe protein malnutrition Continue with PT OT Dianne Agudelo MD 07/24/2024 8:13 AM [facility] - Progress Note Today's Date and Time: 07/24/2024, 7:46 AM Impression : Interloop multiple abscess on CT 07/19/24 Did have 05/01/24 multiloculated abscesses - IR - strep anginosus - no drain left in place Treated w augmentin then cipro and flagyl outpt till 07/20/24 CRP elevated 47 Currently partial small bowel obstruction Crohn's Disease 06/05/2024 colonscopy biopsy of rectum moderate to sever active ileitis with erosion and ulceration PSHx: Ileo-cecal resection 2012 Recommendations: The patient will continue on intravenous antimicrobial therapy with Zosyn while hospitalized The plan will be to switch to IV ertapenem when ready for home to complete a 28-day course of therapy Office f/up in [address] Grover for infection. Please call [phone] for appointment . There are current plans for the patient to be transferred to the [facility] for consideration of surgery Medical Decision Making/Summary/Discussion: 025 IR - abscess not accessible Disc w IR -all are much better in size compared to April CTAP Left small fluid collection w an ovarian cyst- and 3 smaller Improved abscesses., largest 2.5 cm on the right pelvis above the uterus, interloop Has flare from the IBD-with some reactive fluid in the anterior pelvic from the IBD No bowel fistula seen on CTAP Gen surg recommending NPO, NG placement for decompression due to small bowel obstruction but she declined it, tolerated liquid diet 07/24 Tentative plan for [facility], d/c with primary Infection Control Recommendations [place] Precautions Contact isolation Antimicrobial Stewardship Recommendations Simplification of therapy Targeted therapy Coordination of Outpatient Care: Estimated Length of IV antimicrobials:TBD Patient will need Midline Catheter Insertion: TBD Patient will need PICC line Insertion:TBD Patient will need: Home IV , Infusion Center, SNF, LTAC: TBD Patient will need outpatient wound care: Chief complaint/reason for consultation: Intra-abdominal infection History of Present Illness: Francine Hobson is a 38 y.o.-year-old female who was initially admitted on 07/19/2024. Patient seen at the request of INITIAL HISTORY: Francine Hobson is a 38 y.o.-year-old female with PMHx of chron's disease with recurent perirectal abscess presenting with sudden abdominal pain, nausea, and vomitting. She has been in a persistent Crohn's flair since hospital discharge 05/2024 after treatment for a perirectal abscess. She underwent aspiration and drainage which was cultured as Strep anginosus, received zosyn 8 days and completed augmentin 875 po bid for 2 weeks outpatient per consultation with Dr. Scanlon. She subsequently followed up with Dr. Maguire who prescribed 2 months course of cipro and flagy completed one week ago. She has utilized medications for symptoms management but no anti-inflammatory or biologic therapy from concern of her rectal abscess. She is planning on consultation with the [facility] but has not done so yet. Her abd pain nausea and vomitting has worsened in the past week but suddenly 4 am 07/19 completed limited her function delaying ED presentation. She is tolerated PO intake with liquids, having liquid stools. She is a prior smoker. CT was obtained 07/19 demonstrating Pathologically dilated small bowel upstream from a long segment small bowel stricture with wall thickening and perienteric inflammatory change. Findings consistent with partial obstruction There are several interloop fluid collections as described likely representing abscesses. GI, Gen surg, and colorectal surgery were subsequently consulted for management. Infectious disease was consulted for guidance on antibiotic therapy given past treatment for intraabdominal infections 07/22 Patient not agreeable to NG tube Pulled it out Reports she had one episode of stool last night Cannot remember whether it was runny or formed GI panel negative Stool calprotectin pending 07/24 Unintended pureed diet lead to nausea 07/23, required zofran. BM liquid diarrhea 07/23, flatus. Started on TPN 07/23 and was able to shower. Currently appetite is reduced but plan is to trial liquid diet. Crampy abdominal pain, tenderness, and distention. Patient voided this morning. Bed not available 07/24 for transfer to [facility] for IBD specialist but still planning on transfer. BS present/hyperactive x4, distended abdomen. CURRENT EVALUATION 07/24/2024 BP 110/82 Pulse 70 Temp 98.1 F (36.7 C) (Oral) Resp 14 Ht 1.702 m (5' 7.01 ) Wt 48.1 kg (106 lb 0.7 oz) LMP 07/04/2024 (Approximate) SpO2 100% BMI 16.60 kg/m Medications reviewed: On IV zosyn Labs, X rays reviewed: 07/24/2024 BUN: <2 Cr: 0.5-->0.4 WBC: 8.8 - 5.5-->4.9 Hb: 14.1 -11.8-->11.6 Plat: 294 CRP: 30.2 -39 -47.1 Calprotectin pending Cultures: GI stool panel negative Urine: Blood: Sputum : Wound: MRSA Nares: Imaging: CT ABDOMEN PELVIS W IV CONTRAST Additional Contrast? Oral Result Date: 07/19/2024 There is pathologically dilated small bowel upstream from a long segment of small bowel mural thickening and extensive perienteric inflammation. There are multiple interloop fluid collections, for example, right mid pelvis image 131/2 measuring 2.5 x 1.6 cm. Left paracentral pelvis on the same image measuring 1.6 x 1.1 cm. Enteric suture line in the right lower quadrant. Moderate volume of unorganized free fluid more anteriorly in the pelvis. CT AP 05/02/2024 Dilated proximal small bowel loops containing contrast with long segment narrowing involving a loop of ileum seen in the mid abdomen with circumferential wall thickening consistent with active inflammation. This is partially surrounded by the multiloculated abscess seen in the right lower abdomen measuring 7.1 by 7.5 cm on image 123. This is contiguous with 2 additional large abscesses seen in the right adnexa measuring 6.3 x 5.4 cm and in the upper pelvis in the midline measuring 5.3 x 4.8 cm. Overall similar to recent prior examination I have personally reviewed the past medical history, past surgical history, medications, social history, and family history, and I have updated the database accordingly. Past Medical History: Past Medical History: Diagnosis Date Crohn disease (HCC) Past Surgical History: Past Surgical History: Procedure Laterality Date BOWEL RESECTION SECTION COLONOSCOPY N/A 06/05/2024 COLONOSCOPY BIOPSY performed by Maru Maguire MD at [facility] CT ABSCESS DRAINAGE 05/03/2024 CT ABSCESS DRAIN SUBCUTANEOUS 05/03/2024 Jose Manuel Torre MD [facility] CT SCAN TONSILLECTOMY AND ADENOIDECTOMY TUMOR REMOVAL Left left shoulder, benign WISDOM TOOTH EXTRACTION Medications: fat emulsion 250 mL IntraVENous Daily piperacillin-tazobactam 3,375 mg IntraVENous Q8H citalopram 40 mg Oral Daily sodium chloride flush 5-40 mL IntraVENous 2 times per day pantoprazole (PROTONIX) 40 mg in sodium chloride (PF) 0.9 % 10 mL injection 40 mg IntraVENous Daily enoxaparin 40 mg SubCUTAneous Daily Social History: Social History Socioeconomic History Marital status: Single Spouse name: Not on file Number of children: Not on file Years of education: Not on file Highest education level: Not on file Occupational History Not on file Tobacco Use Smoking status: Former Types: Cigarettes Smokeless tobacco: Never Vaping Use Vaping status: Every Day Substances: Nicotine Substance and Sexual Activity Alcohol use: Not Currently Comment: occass. Drug use: Not Currently Types: Marijuana ([place]) Comment: occassional Sexual activity: Yes Partners: Male Other Topics Concern Not on file Social History Narrative Not on file Social Determinants of Health Financial Resource Strain: Low Risk (11/24/2022) Received from [facility] Overall Financial Resource Strain (CARDIA) Difficulty of Paying Living Expenses: Not hard at all Food Insecurity: No Food Insecurity (07/20/2024) Hunger Vital Sign Worried About Running Out of Food in the Last Year: Never true Ran Out of Food in the Last Year: Never true Transportation Needs: No Transportation Needs (07/20/2024) PRAPARE - Transportation Lack of Transportation (Medical): No Lack of Transportation (Non-Medical): No Physical Activity: Not on file Stress: Not on file Social Connections: Unknown (06/03/2021) Received from [facility] Social Connections Frequency of Communication with Friends and Family: Not asked Frequency of Social Gatherings with Friends and Family: Not asked Intimate Partner Violence: Unknown (06/03/2021) Received from [facility] Intimate Partner Violence Fear of Current or Ex-Partner: Not asked Emotionally Abused: Not asked Physically Abused: Not asked Sexually Abused: Not asked Housing Stability: Low Risk (07/20/2024) Housing Stability Vital Sign Unable to Pay for Housing in the Last Year: No Number of Times Moved in the Last Year: 0 Homeless in the Last Year: No Family History: History reviewed. No pertinent family history. Allergies: Gluten, Motrin [ibuprofen], Nsaids, and Milk (cow) Review of Systems: Constitutional: No fevers or chills. No systemic complaints Head: No headaches Eyes: No double vision or blurry vision. No conjunctival inflammation. ENT: No sore throat or runny nose.. No hearing loss, tinnitus or vertigo. Cardiovascular: No chest pain or palpitations.No shortness of breath. No KNOWLES Lung: No shortness of breath or cough. No sputum production Abdomen: nausea, vomiting, diarrhea, abdominal pain, and cramps. Genitourinary: No increased urinary frequency, or dysuria. No hematuria. No suprapubic or CVA pain Musculoskeletal: No muscle aches or pains. No joint effusions, swelling or deformities Hematologic: No bleeding or bruising. Neurologic: No headache, weakness, numbness, or tingling. Integument: No rash, no ulcers. Psychiatric: No depression. Endocrine: No polyuria, no polydipsia, no polyphagia. Physical Examination : Patient Vitals for the past 8 hrs: Resp Weight 07/24/24 0531 -- 48.1 kg (106 lb 0.7 oz) 07/24/24 0138 14 -- General Appearance: Awake, alert, and in no apparent distress Head: Normocephalic, no trauma Eyes: Pupils equal, round, reactive to light and accommodation; extraocular movements intact; sclera anicteric; conjunctivae pink. No embolic phenomena. ENT: Oropharynx clear, without erythema, exudate, or thrush. No tenderness of sinuses. Mouth/throat: mucosa pink and moist. No lesions. Dentition in good repair. Neck:Supple, without lymphadenopathy. Thyroid normal, No bruits. Pulmonary/Chest: Clear to auscultation, without wheezes, rales, or rhonchi. No dullness to percussion. Cardiovascular: Regular rate and rhythm without murmurs, rubs, or gallops. Abdomen: Distended, tender, BS hyperactive x 4 All four Extremities: No cyanosis, clubbing, edema, or effusions. Neurologic: No gross sensory or motor deficits. Skin: Warm and dry with good turgor.No signs of peripheral arterial or venous insufficiency. No ulcerations. No open wounds. Medical Decision Making -Laboratory: I have independently reviewed/ordered the following labs: CBC with Differential: Recent Labs 07/22/24 0239 07/23/24626 WBC 5.5 4.9 HGB 11.8* 11.6* HCT 39.4 38.1 PLT 294 177 LYMPHOPCT 14* -- MONOPCT 8 -- EOSPCT 3 -- BMP: Recent Labs 07/23/24 0627 07/24/24 0500 NA 137 140 K 3.8 3.6* CL 107 107 CO2 18* 25 BUN <2* <2* CREATININE 0.4* 0.5* MG 2.0 1.9 Hepatic Function Panel: Recent Labs 07/22/24 0239 07/23/24626 BILIDIR -- <0.1 IBILI -- Can not be calculated BILITOT 0.2 0.2 ALKPHOS 72 64 ALT <5* <5* AST 15 16 No results for input(s): RPR in the last 72 hours. No results for input(s): HIV in the last 72 hours. No results for input(s): BC in the last 72 hours. Lab Results Component Value Date/Time BACTERIA None 07/19/2024 02:53 PM MUCUS 1+ 07/19/2024 02:53 PM RBC 4.15 07/23/2024 06:27 AM WBC 4.9 07/23/2024 06:27 AM TURBIDITY Cloudy 07/19/2024 02:53 PM Lab Results Component Value Date/Time CREATININE 0.5 07/24/2024 05:00 AM GLUCOSE 108 07/24/2024 05:00 AM Medical Decision Making-Imaging: XR ABDOMEN FOR NG/OG/NE TUBE PLACEMENT Result Date: 07/21/2024 EXAMINATION: ONE SUPINE XRAY VIEW(S) OF THE ABDOMEN 07/21/2024 9:41 pm COMPARISON: 07/20/2024, 07/19/2024 HISTORY: ORDERING SYSTEM PROVIDED HISTORY: ngt placement TECHNOLOGIST PROVIDED HISTORY: ngt placement Portable?->Yes Reason for Exam: port. upright FINDINGS: The enteric catheter tip terminates in the region of the mid to distal gastric body. Again identified are dilated loops of small bowel secondary to known enteritis and partial small bowel obstruction. No free air is identified. Enteric catheter tip terminates in the mid to distal gastric body. XR ABDOMEN (KUB) (SINGLE AP VIEW) Result Date: 07/20/2024 EXAMINATION: ONE SUPINE XRAY VIEW(S) OF THE ABDOMEN 07/20/2024 7:16 am COMPARISON: None. HISTORY: ORDERING SYSTEM PROVIDED HISTORY: abdominal pain TECHNOLOGIST PROVIDED HISTORY: abdominal pain Reason for Exam: port sup FINDINGS: Lines and tubes: None Bowel gas pattern: Contrast seen throughout the colon.Gas-filled distended bowel loops in the left upper quadrant suggest at least partial obstruction or ileus.Given limitations of supine imaging, no evidence of free air, pneumatosis or portal venous gas. Abnormal calcifications: None Bones: Within normal limits for age Other: None Dilated small bowel loops seen in left upper quadrant suggest ileus or partial obstruction. Contrast seen throughout the colon excluding complete obstruction. CT ABDOMEN PELVIS W IV CONTRAST Additional Contrast? Oral Result Date: 07/19/2024 EXAMINATION: CT OF THE ABDOMEN AND PELVIS WITH CONTRAST 07/19/2024 2:25 pm TECHNIQUE: CT of the abdomen and pelvis was performed with the administration of intravenous contrast. Multiplanar reformatted images are provided for review. Automated exposure control, iterative reconstruction, and/or weight based adjustment of the mA/kV was utilized to reduce the radiation dose to as low as reasonably achievable. COMPARISON: None. HISTORY: ORDERING SYSTEM PROVIDED HISTORY: hx chrons/abscesses/severe abdominal pain TECHNOLOGIST PROVIDED HISTORY: hx chrons/abscesses/severe abdominal pain Decision Support Exception - unselect if not a suspected or confirmed emergency medical condition->Emergency Medical Condition (MA) FINDINGS: Lower Chest: No infiltrate or effusion. Liver: There is normal hepatic parenchymal enhancement. No focal hepatic mass. Portal and hepatic veins are patent. No intrahepatic biliary ductal dilation. Biliary: Gallbladder is nondistended. No gallstones are evident. No pericholecystic inflammatory change. Spleen: Normal in size. Pancreas: No pancreatic ductal dilation. No discrete pancreatic parenchymal lesion. Adrenal Glands: Normal morphology. Kidneys / Ureters: Kidneys enhance symmetrically. No hydronephrosis. No focal renal mass. No urinary calculi. GI/Bowel: There is pathologically dilated small bowel upstream from a long segment of small bowel mural thickening and extensive perienteric inflammation. There are multiple interloop fluid collections, for example, right mid pelvis image 131/2 measuring 2.5 x 1.6 cm. Left paracentral pelvis on the same image measuring 1.6 x 1.1 cm. Enteric suture line in the right lower quadrant. Moderate volume of unorganized free fluid more anteriorly in the pelvis. Aorta/IVC: Aorta is normal in caliber. No evidence of aneurysm. Unremarkable IVC. Bladder: Nondistended. Bones/Soft Tissues: No acute osseus abnormality is identified. Pathologically dilated small bowel upstream from a long segment small bowel stricture with wall thickening and perienteric inflammatory change. Findings consistent with partial obstruction There are several interloop fluid collections as described likely representing abscesses. Moderate volume of free fluid also noted in the pelvis. Medical Decision Ivldqx-Gerhmrqu-Saljs: Results Procedure Component Value Units Date/Time Gastrointestinal Panel, Molecular [[id number]] Collected: 07/22/24 1259 Order Status: Completed Specimen: Stool Updated: 07/23/24 0985 Specimen Description .FECES Campylobacter PCR NEGATIVE: No Campylobacter spp. (jejuni or coli) DNA Detected Salmonella PCR NEGATIVE: No Salmonella spp. DNA Detected Shigatoxin Gene PCR NEGATIVE: No Shiga toxin-producing gene(s) Detected Shigella Sp PCR NEGATIVE: No Shigella spp. / EIEC DNA Detected Plesiomonas Shigelloides PCR NEGATIVE: No Plesionomas shigelloides DNA Detected Vibrio PCR NEGATIVE: No Vibrio (V. vulnificus, V, parahaemolyticus and V. cholerae) DNA Detected E Coli Enterotoxigenic PCR NEGATIVE: No Enterotoxigenic E. coli (ETEC) Heat-labile and heat-stable (LT/ST) DNA Detected Yersinia Enterocolitica PCR NEGATIVE: No Yersinia enterocolitica DNA Detected Medical Decision Making-Other: Note: Thank you for allowing us to participate in the care of this patient. Please call with questions. Paul Huggins 07/24/2024 Pager: - Office: I have discussed the care of Francine Hobson including pertinent history and exam findings, with the student. I have edited the note to reflect my thoughts including the history, physical exam, and medical decisions. I have independently interviewed and examined the patient and I discussed the findings and therapeutic plan with the resident/GEOPHYSICAL DRAFTER and we collaborated on medical decision making for this patient. [facility] Physician Progress Note PATIENT: FRANCINE HOBSON CSN #: [id number] : 1985 ADMIT DATE: 07/19/2024 12:43 PM DISCH DATE: RESPONDING PROVIDER #: Eloy Alves DO QUERY TEXT: Pt admitted with Crohns disease and has Severe Malnutrition documented in Back Tender Pulp Drier Progress notes. Please further clarify if you agree with the Back Tender Pulp Drier assessment. The medical record reflects the following: Risk Factors: Crohn's disease with possible bowel obstruction Clinical Indicators: 38 yo F Admitted with c/o severe abdominal pain and nausea x past 4-5 days. Per IM Progress notes-'Malnutrition' documented.. Per Back Tender Pulp Drier Consult / progress notes- Severe Malnutrition in the context of Chronic illness/inadequate protein-energy intake with severe muscle mass loss. NGT refused by pt,as well as peripheral line.. Plan for TPN and transfer to higher tertiary center. BMI 18 Treatment: TPN, Daily weights, labs with monitoring I&O Options provided: -- Severe Malnutrition -- Severe Protein calorie malnutrition -- Other - I will add my own diagnosis -- Disagree - Not applicable / Not valid -- Disagree - Clinically unable to determine / Unknown -- Refer to Clinical Documentation Reviewer PROVIDER RESPONSE TEXT: This patient has severe malnutrition. Query created by: Camilla Umanzor on 07/24/2024 7:15 AM Electronically signed by: Eloy Alves DO 07/24/2024 7:23 AM Colorectal surgery: Daily Progress Note PATIENT NAME: Francine Hobson TODAY'S DATE: 07/24/2024, 6:32 AM CC: Mild abdominal pain along with nausea SUBJECTIVE: Pt seen and examined at bedside. Patient was given pur ed diet yesterday and was able to eat 90% of the diet following which patient started to develop nausea. Zofran was given. Afebrile, vital signs stable. No white count as of 07/23. Does not complain of any abdominal distention. Passing some amount of flatus, and had multiple liquid Bms yesterday. Is amenable to transfer to [facility] for higher level care. OBJECTIVE: VITALS: BP 110/82 Pulse 70 Temp 98.1 F (36.7 C) (Oral) Resp 14 Ht 1.702 m (5' 7.01 ) Wt 48.1 kg (106 lb 0.7 oz) LMP 07/04/2024 (Approximate) SpO2 100% BMI 16.60 kg/m INTAKE/OUTPUT: Intake/Output Summary (Last 24 hours) at 07/24/2024 0632 Last data filed at 07/23/2024 1821 Gross per 24 hour Intake 1950 ml Output -- Net 1950 ml PHYSICAL EXAM: Physical Exam Vitals reviewed. Constitutional: General: She is not in acute distress. Appearance: She is not toxic-appearing. HENT: Head: Normocephalic and atraumatic. Right Ear: External ear normal. Left Ear: External ear normal. Nose: Nose normal. Mouth/Throat: Mouth: Mucous membranes are dry. Eyes: Extraocular Movements: Extraocular movements intact. Cardiovascular: Rate and Rhythm: Normal rate and regular rhythm. Pulmonary: Effort: Pulmonary effort is normal. No respiratory distress. Abdominal: General: There is no distension. Palpations: Abdomen is soft. Comments: Mild diffuse tenderness to palpation Skin: General: Skin is warm and dry. Capillary Refill: Capillary refill takes less than 2 seconds. Neurological: General: No focal deficit present. Mental Status: She is alert and oriented to person, place, and time. Psychiatric: Mood and Affect: Mood normal. Behavior: Behavior normal. Data: {LABS: Recent Results (from the past 24 hour(s)) POC Glucose Fingerstick Collection Time: 07/23/24 11:03 PM Result Value Ref Range POC Glucose 114 (H) 65 - 105 mg/dL Basic Metabolic Panel Collection Time: 07/24/24 5:00 AM Result Value Ref Range Sodium 140 136 - 145 mmol/L Potassium 3.6 (L) 3.7 - 5.3 mmol/L Chloride 107 98 - 107 mmol/L CO2 25 20 - 31 mmol/L Anion Gap 8 (L) 9 - 16 mmol/L Glucose 108 (H) 74 - 99 mg/dL BUN <2 (L) 6 - 20 mg/dL Creatinine 0.5 (L) 0.6 - 0.9 mg/dL Est, Glom Filt Rate >90 >60 mL/min/1.73m2 Calcium 8.6 8.6 - 10.4 mg/dL Magnesium Collection Time: 07/24/24 5:00 AM Result Value Ref Range Magnesium 1.9 1.6 - 2.6 mg/dL Phosphorus Collection Time: 07/24/24 5:00 AM Result Value Ref Range Phosphorus 3.4 2.5 - 4.5 mg/dL POC Glucose Fingerstick Collection Time: 07/24/24 5:02 AM Result Value Ref Range POC Glucose 107 (H) 65 - 105 mg/dL Radiology Review: XR ABDOMEN (KUB) (SINGLE AP VIEW) Result Date: 07/20/2024 Dilated small bowel loops seen in left upper quadrant suggest ileus or partial obstruction. Contrast seen throughout the colon excluding complete obstruction. CT ABDOMEN PELVIS W IV CONTRAST Additional Contrast? Oral Result Date: 07/19/2024 Pathologically dilated small bowel upstream from a long segment small bowel stricture with wall thickening and perienteric inflammatory change. Findings consistent with partial obstruction There are several interloop fluid collections as described likely representing abscesses. Moderate volume of free fluid also noted in the pelvis. ASSESSMENT: Active Hospital Problems Diagnosis Date Noted Abdominal pain, epigastric [R10.13] 07/23/2024 Nausea and vomiting [R11.2] 07/20/2024 Crohn's colitis, unspecified complication (HCC) [K50.119] 07/19/2024 Generalized abdominal pain [R10.84] 05/02/2024 Partial intestinal obstruction (HCC) [K56.600] 01/26/2024 Crohn's disease of colon with complication (HCC) [K50.119] 06/04/2020 38 yo female with hx Crohn's presents with small bowel obstruction Plan: Continue medical mgmt and supportive care per primary Start clear liquid diet. Recommend K>4, Mag >2 Continue IV Zosyn Okay to ambulate and work with PT OT GI consult, pt will need medical management of Crohn's disease Colorectal surgery not planning surgical intervention on this patient's small bowel. Recommend evaluation by general surgery service at [facility]. This has been discussed with the patient's primary team. Ashley Loyola, 07/24/24 6:32 AM General Surgery PGY [address] Katz saw and examined the patient. I have edited the above and agree with the above. Hemant Katz Colorectal Surgery Colorectal surgery: Daily Progress Note PATIENT NAME: Francine Hobson TODAY'S DATE: 07/23/2024, 3:15 PM CC: Mild abdominal pain along with nausea SUBJECTIVE: Pt seen and examined at bedside. Patient was given pur ed diet and was able to eat 90% of the diet following which patient started to develop nausea. Zofran was given. Complain of any abdominal distention. Passing some amount of flatus. Is amenable to transfer to [facility] for higher level care. OBJECTIVE: VITALS: BP 107/82 Pulse 87 Temp 98 F (36.7 C) (Oral) Resp 18 Ht 1.702 m (5' 7.01 ) Wt 49 kg (108 lb 0.4 oz) LMP 07/04/2024 (Approximate) SpO2 97% BMI 16.92 kg/m INTAKE/OUTPUT: Intake/Output Summary (Last 24 hours) at 07/23/2024 1515 Last data filed at 07/22/2024 1808 Gross per 24 hour Intake 1140 ml Output -- Net 1140 ml PHYSICAL EXAM: Physical Exam Vitals reviewed. Constitutional: General: She is not in acute distress. Appearance: She is not toxic-appearing. HENT: Head: Normocephalic and atraumatic. Right Ear: External ear normal. Left Ear: External ear normal. Nose: Nose normal. Mouth/Throat: Mouth: Mucous membranes are dry. Eyes: Extraocular Movements: Extraocular movements intact. Cardiovascular: Rate and Rhythm: Normal rate and regular rhythm. Pulmonary: Effort: Pulmonary effort is normal. No respiratory distress. Abdominal: General: There is no distension. Palpations: Abdomen is soft. Comments: Mild diffuse tenderness to palpation Skin: General: Skin is warm and dry. Capillary Refill: Capillary refill takes less than 2 seconds. Neurological: General: No focal deficit present. Mental Status: She is alert and oriented to person, place, and time. Psychiatric: Mood and Affect: Mood normal. Behavior: Behavior normal. Data: {LABS: Recent Results (from the past 24 hour(s)) Lactic Acid Collection Time: 07/22/24 5:54 PM Result Value Ref Range Lactic Acid, Whole Blood 1.0 0.7 - 2.1 mmol/L Basic Metabolic Panel Collection Time: 07/23/24 6:27 AM Result Value Ref Range Sodium 137 136 - 145 mmol/L Potassium 3.8 3.7 - 5.3 mmol/L Chloride 107 98 - 107 mmol/L CO2 18 (L) 20 - 31 mmol/L Anion Gap 12 9 - 16 mmol/L Glucose 86 74 - 99 mg/dL BUN <2 (L) 6 - 20 mg/dL Creatinine 0.4 (L) 0.6 - 0.9 mg/dL Est, Glom Filt Rate >90 >60 mL/min/1.73m2 Calcium 8.4 (L) 8.6 - 10.4 mg/dL CBC Collection Time: 07/23/24 6:27 AM Result Value Ref Range WBC 4.9 3.5 - 11.3 k/uL RBC 4.15 3.95 - 5.11 m/uL Hemoglobin 11.6 (L) 11.9 - 15.1 g/dL Hematocrit 38.1 36.3 - 47.1 % MCV 91.8 82.6 - 102.9 fL MCH 28.0 25.2 - 33.5 pg MCHC 30.4 28.4 - 34.8 g/dL RDW 15.7 (H) 11.8 - 14.4 % Platelets 177 138 - 453 k/uL MPV 9.9 8.1 - 13.5 fL NRBC Automated 0.0 0.0 per 100 WBC Hepatic Function Panel Collection Time: 07/23/24 6:27 AM Result Value Ref Range Albumin 2.7 (L) 3.5 - 5.2 g/dL Alkaline Phosphatase 64 35 - 104 U/L ALT <5 (L) 10 - 35 U/L AST 16 10 - 35 U/L Total Bilirubin 0.2 0.0 - 1.2 mg/dL Bilirubin, Direct <0.1 0.0 - 0.2 mg/dL Bilirubin, Indirect Can not be calculated 0.0 - 1.0 mg/dL Total Protein 5.3 (L) 6.6 - 8.7 g/dL Globulin 2.6 g/dL Albumin/Globulin Ratio 1.0 1.0 - 2.5 Magnesium Collection Time: 07/23/24 6:27 AM Result Value Ref Range Magnesium 2.0 1.6 - 2.6 mg/dL Phosphorus Collection Time: 07/23/24 6:27 AM Result Value Ref Range Phosphorus 2.9 2.5 - 4.5 mg/dL Triglyceride Collection Time: 07/23/24 6:27 AM Result Value Ref Range Triglycerides 124 <150 mg/dL Radiology Review: XR ABDOMEN (KUB) (SINGLE AP VIEW) Result Date: 07/20/2024 Dilated small bowel loops seen in left upper quadrant suggest ileus or partial obstruction. Contrast seen throughout the colon excluding complete obstruction. CT ABDOMEN PELVIS W IV CONTRAST Additional Contrast? Oral Result Date: 07/19/2024 Pathologically dilated small bowel upstream from a long segment small bowel stricture with wall thickening and perienteric inflammatory change. Findings consistent with partial obstruction There are several interloop fluid collections as described likely representing abscesses. Moderate volume of free fluid also noted in the pelvis. ASSESSMENT: Active Hospital Problems Diagnosis Date Noted Nausea and vomiting [R11.2] 07/20/2024 Crohn's colitis, unspecified complication (HCC) [K50.119] 07/19/2024 Generalized abdominal pain [R10.84] 05/02/2024 Partial intestinal obstruction (HCC) [K56.600] 01/26/2024 Crohn's disease of colon with complication (HCC) [K50.119] 06/04/2020 38 yo female with hx Crohn's presents with small bowel obstruction Plan: Continue medical mgmt and supportive care per primary Start clear liquid diet. Recommend K>4, Mag >2 Continue IV Zosyn Okay to ambulate and work with PT OT GI consult, pt will need medical management of Crohn's disease Colorectal surgery not planning surgical intervention on this patient's small bowel. Recommend evaluation by general surgery service at [facility]. This has been discussed with the patient's primary team. Justus Spencer MD 07/23/24 3:15 PM General Surgery PGY 4 Images from the original note were not included. [facility] Office: [phone] Marco Delarosa DO, Dominic Gonzalez DO, Clifton Blanc DO, Froylan Snowden DO, Paula Jensen MD, Radha Greer MD, Nitish Parra MD, Maya Hernández MD, Porfirio aGrcía MD, Norma Smith MD, Tanya Mercado MD, Eloy Alves DO, Heidi Roche MD, Arthur Schroeder MD, Jose Manuel Delarosa DO, Shikha Pastrana MD, bOed Lilly DO, Rosangela Koehler MD, Alysa De Santiago MD, Dianne Agudelo MD, Judith Nicole MD, London Morales MD, Gamal Granger MD, Abby Salgado MD, Nereyda Lucas MD, Dru Shannon MD, Shahid Reddy MD, Ashley Schaffer DO, Cruzito Holloway MD, Eloy Valentin MD, Tony Valentin MD, Alix Acosta, BROACH TROUBLE SHOOTER, Shefali Hills, BROACH TROUBLE SHOOTER, Ashley Baker, BROACH TROUBLE SHOOTER, Muna Brandon, CRESENCIO, Neida Mars, BROACH TROUBLE SHOOTER, Jigna De Dios, BROACH TROUBLE SHOOTER, Angelina Peguero, BROACH TROUBLE SHOOTER, Adwoa Lei, BROACH TROUBLE SHOOTER, Carmen Wray, PA-C, Kathy Apple, PA-C, Jaz Castaneda, BROACH TROUBLE SHOOTER, Robert Huertas, BROACH TROUBLE SHOOTER, Vanessa Saleh, BROACH TROUBLE SHOOTER, Philly Mcgarry, BROACH TROUBLE SHOOTER, Josefina Higgins, BROACH TROUBLE SHOOTER, Chanel Mccullough, AIRBRUSH ARTIST TECHNICAL, Ghassan Schwartz, BROACH TROUBLE SHOOTER, Lissett Root, BROACH TROUBLE SHOOTER, Lu Cooley, BROACH TROUBLE SHOOTER [facility] IN-PATIENT SERVICE [facility] Progress Note 07/23/2024 3:10 PM Name: Francine Hobson Acct: [id number] Room: 0243/0243-01 Day: 4 Admit Date: 07/19/2024 12:43 PM PCP: Dalia Apple DO Code Status: Full Code Subjective: Patient seen examined bedside today. She was able to get NG tube last night with Ativan, but this was pulled out early in the morning. Did discuss with GI/surgery recommended transferring patient to [facility]. This was initiated this morning with [facility] access, awaiting callback. Brief History: This is a 38-year-old female with a history of Crohn's disease who presents to the hospital for evaluation of small bowel obstruction as well as for management of abdominal abscess. CT scan showed pathologically dilated small bowel upstream from a long segment of small bowel stricture with wall thickening and perienteric inflammatory changes consistent with a partial obstruction. She also had moderate volume of free fluid in the pelvis in addition to several fluid collection Medications: Allergies: Allergies Allergen Reactions Gluten Motrin [Ibuprofen] Nsaids Milk (Cow) Diarrhea Current Meds: Scheduled Meds: piperacillin-tazobactam 3,375 mg IntraVENous Q8H citalopram 40 mg Oral Daily sodium chloride flush 5-40 mL IntraVENous 2 times per day pantoprazole (PROTONIX) 40 mg in sodium chloride (PF) 0.9 % 10 mL injection 40 mg IntraVENous Daily enoxaparin 40 mg SubCUTAneous Daily Continuous Infusions: PN-Adult Premix 4.25/10 - Standard Electrolytes - Peripheral Line 42 mL/hr at 07/23/24 1331 sodium chloride lactated ringers 75 mL/hr (07/23/24 1349) PRN Meds: hydrOXYzine HCl, phenol, sodium chloride flush, sodium chloride, potassium chloride OR potassium alternative oral replacement OR potassium chloride, ondansetron OR ondansetron, acetaminophen OR acetaminophen, melatonin, HYDROmorphone Data: Vitals: BP 107/82 Pulse 87 Temp 98 F (36.7 C) (Oral) Resp 18 Ht 1.702 m (5' 7.01 ) Wt 49 kg (108 lb 0.4 oz) LMP 07/04/2024 (Approximate) SpO2 97% BMI 16.92 kg/m Temp (24hrs), Av F (36.7 C), Min:98 F (36.7 C), Max:98 F (36.7 C) No results for input(s): POCGLU in the last 72 hours. I/O (24Hr): Intake/Output Summary (Last 24 hours) at 07/23/2024 1510 Last data filed at 07/22/2024 1808 Gross per 24 hour Intake 1140 ml Output -- Net 1140 ml Labs: Hematology: Recent Labs 07/21/24 0323 07/22/24 0239 07/23/24 0627 WBC -- 5.5 4.9 RBC -- 4.29 4.15 HGB -- 11.8* 11.6* HCT -- 39.4 38.1 MCV -- 91.8 91.8 MCH -- 27.5 28.0 MCHC -- 29.9 30.4 RDW -- 15.4* 15.7* PLT -- 294 177 MPV -- 9.4 9.9 SEDRATE 24* -- -- CRP 47.1* -- -- Chemistry: Recent Labs 07/22/24 0239 07/22/24 0850 07/22/24 1754 07/23/24626 NA 135* -- -- 137 K 4.6 -- -- 3.8 CL 107 -- -- 107 CO2 14* -- -- 18* GLUCOSE 72* -- -- 86 BUN <2* -- -- <2* CREATININE 0.5* -- -- 0.4* MG -- -- -- 2.0 ANIONGAP 14 -- -- 12 LABGLOM >90 -- -- >90 CALCIUM 8.7 -- -- 8.4* PHOS -- -- -- 2.9 LACTACIDWB 0.9 1.0 1.0 -- Recent Labs 07/22/2423807/23/24626 AST 15 16 ALT <5* <5* ALKPHOS 72 64 BILITOT 0.2 0.2 BILIDIR -- <0.1 TRIG -- 124 ABG:No results found for: POCPH , PHART , PH , POCPCO2 , BIL8FGN , PCO2 , POCPO2 , PO2ART , PO2 , POCHCO3 , RRR8JOW , HCO3 , NBEA , PBEA , BEART , BE , THGBART , THB , CEP5XKR , ZPGH5AXU , L3YREYMP , O2SAT , FIO2 Lab Results Component Value Date/Time SPECIAL Site: Body Fluid 05/03/2024 06:05 PM Lab Results Component Value Date/Time CULTURE POSITIVE Fluid Culture 05/03/2024 06:05 PM CULTURE 05/03/2024 06:05 PM DIRECT GRAM STAIN FROM BOTTLE: GRAM POSITIVE COCCI IN CHAINS CULTURE (A) 05/03/2024 06:05 PM VIRIDANS STREPTOCOCCUS GROUP Identified as : STREPTOCOCCUS ANGINOSUS Identification by MALDI-TOF CULTURE 05/03/2024 06:05 PM (NOTE) Direct Gram Stain from bottle result called to and read back by:WAQAS De Guzman 05/04/24 1750 Radiology: XR ABDOMEN (KUB) (SINGLE AP VIEW) Result Date: 07/20/2024 Dilated small bowel loops seen in left upper quadrant suggest ileus or partial obstruction. Contrast seen throughout the colon excluding complete obstruction. CT ABDOMEN PELVIS W IV CONTRAST Additional Contrast? Oral Result Date: 07/19/2024 Pathologically dilated small bowel upstream from a long segment small bowel stricture with wall thickening and perienteric inflammatory change. Findings consistent with partial obstruction There are several interloop fluid collections as described likely representing abscesses. Moderate volume of free fluid also noted in the pelvis. Physical Examination: General appearance: alert, cooperative and ill appearing . She is uncomfortable. Mental Status: oriented to person, place and time and normal affect Lungs: clear to auscultation bilaterally, normal effort Heart: regular rate and rhythm, no murmur Abdomen: Soft, +tender to palpation throughout nonperitoneal on distended surgical scars noted Extremities: no edema, redness, tenderness in the calves Skin: no gross lesions, rashes, induration Assessment: Hospital Problems Last Modified POA * (Principal) Crohn's colitis, unspecified complication (HCC) 07/19/2024 Yes Partial intestinal obstruction (HCC) 07/20/2024 Yes Crohn's disease of colon with complication (HCC) 07/19/2024 Yes Generalized abdominal pain 07/19/2024 Yes Nausea and vomiting 07/20/2024 Yes Plan: Abdominal pain likely due to intraabdominal abscess Partial SBO in the setting of stricture Hx of Crohn's disease. -CT scan reviewed -Hold off on steroids given intra-abdominal infection -NPO, IVF - On zosyn, ID assisting. Seems abscess not accessible by IR. Plan to keep on zosyn in hospital, and ertapenem on discharge. - Several attempts for NGT failed, was able to place one yesterday but patient pulled it out. -d/w colorectal surgery and GI, who recommend transfer to [facility] for surgical management of recurrent abscess which can be done under care of IBD specialists. Transfer initiated with [facility], I did talk to their accepting provider who would like to view the scans prior to transfer. Asked Tyros to send the images for review to . 2. Malnutrition -Back Tender Pulp Drier consulted. Patient will need TPN. PICC line ordered. 3. Anxiety - Continue home Celexa LONDON MORALES MD 07/23/2024 3:10 PM Comprehensive Nutrition Assessment Type and Reason for Visit: Reassess Nutrition Recommendations/Plan: Start TPN 2-1 custom mix at 42 mL/h (1000 mL/d) with 150 g dextrose and 50 g protein. Will have 250 mL lipid emulsion. This will provide 1210 kcal/d and 50 g protein. Will monitor labs, weights, TPN tolerance, GI status, and plan of care. Malnutrition Assessment: Malnutrition Status: Severe malnutrition (07/21/24 1445) Context: Chronic Illness Findings of the 6 clinical characteristics of malnutrition: Energy Intake: 75% or less estimated energy requirements for 1 month or longer Weight Loss: Mild weight loss Body Fat Loss: Mild body fat loss Orbital, Buccal region Muscle Mass Loss: Severe muscle mass loss Clavicles (pectoralis & deltoids), Hand (interosseous), Calf (gastrocnemius) Fluid Accumulation: No fluid accumulation Inspector Materials [employer] Processes Strength: Not Performed Nutrition Assessment: Per RN pt refused PN through peripheral line. Pt was getting centeral line placed currently. RN to get PPN from pharamacy and start, will switch to new bag tonight. Note pt had a meal tray delivered this morning and ate ~90% of eggs, pt was to be NPO. Nutrition Related Findings: No edema. LBM 07/21 - cramping/nausea. Labs/meds reviewed. Wound Type: None Current Nutrition Intake & Therapies: Average Meal Intake: NPO Average Supplements Intake: NPO PN-Adult Premix 4.25/10 - Standard Electrolytes - Peripheral Line ADULT DIET; Clear Liquid Anthropometric Measures: Height: 170.2 cm (5' 7.01 ) [place] Body Weight (IBW): 135 lbs (61 kg) Admission Body Weight: 53.7 kg (118 lb 6.2 oz) Current Body Weight: 52.2 kg (115 lb 1.3 oz), 85.2 % IBW. Weight Source: Bed scale (obtained at visit) Current BMI (kg/m2): 18 Usual Body Weight: 58.1 kg (128 lb) (per pt report) % Weight Change (Calculated): -10.1 Weight Adjustment For: No Adjustment BMI Categories: Underweight (BMI less than 18.5) Estimated Daily Nutrient Needs: Energy Requirements Based On: Kcal/kg Weight Used for Energy Requirements: Admission Energy (kcal/day): 7182-2122 kcals/day Weight Used for Protein Requirements: Admission Protein (g/day): 60-80 gm pro/day Method Used for Fluid Requirements: ml/Kg Fluid (ml/day): 35 mL/kg = 5004-8760 mL/day or per MD Nutrition Diagnosis: Severe malnutrition, in context of chronic illness related to inadequate protein-energy intake as evidenced by criteria as identified in malnutrition assessment, poor intake prior to admission Nutrition Interventions: Food and/or Nutrient Delivery: Modify Parenteral Nutrition Nutrition Education/Counseling: No recommendation at this time Coordination of Nutrition Care: Continue to monitor while inpatient Plan of Care discussed with: Patient Goals: Goals: Initiation of nutrition, Initiate nutrition support, by next RD assessment Type of Goal: Continue current goal Previous Goal Met: Progressing toward Goal(s) Nutrition Monitoring and Evaluation: Behavioral-Environmental Outcomes: None Identified Food/Nutrient Intake Outcomes: Parenteral Nutrition Intake/Tolerance Physical Signs/Symptoms Outcomes: Biochemical Data, Skin, Weight, GI Status, Fluid Status or Edema Discharge Planning: Too soon to determine FELIBERTO JANSEN Contact: [facility] - Progress Note Today's Date and Time: 07/23/2024, 9:44 AM Impression : Interloop multiple abscess on CT 07/19/24 Did have 05/01/24 multiloculated abscesses - IR - strep anginosus - no drain left in place Treated w augmentin then cipro and flagyl outpt till 07/20/24 CRP elevated 47 Currently partial small bowel obstruction Crohn's Disease 06/05/2024 colonscopy biopsy of rectum moderate to sever active ileitis with erosion and ulceration PSHx: Ileo-cecal resection 2013 Recommendations: Recommend Zosyn while in hospital IV ertapenem when ready for home picc x 28 days Office f/up in [address] Grover for infection. Please call [phone] abdomen prior to visit Medical Decision Making/Summary/Discussion: 025 IR - abscess not accessible Disc w IR -all are much better in size compared to April CTAP Left small fluid collection w an ovarian cyst- and 3 smaller Improved abscesses., largest 2.5 cm on the right pelvis above the uterus, interloop Has flare from the IBD-with some reactive fluid in the anterior pelvic from the IBD No bowel fistula seen on CTAP Gen surg recommending NPO, NG placement for decompression due to small bowel obstruction but she declined it Tentative plan for [facility], d/c with primary Infection Control Recommendations [place] Precautions Contact isolation Antimicrobial Stewardship Recommendations Simplification of therapy Targeted therapy Coordination of Outpatient Care: Estimated Length of IV antimicrobials:TBD Patient will need Midline Catheter Insertion: TBD Patient will need PICC line Insertion:TBD Patient will need: Home IV , Infusion Center, SNF, LTAC: TBD Patient will need outpatient wound care: Chief complaint/reason for consultation: Intra-abdominal infection History of Present Illness: Francine Hobson is a 38 y.o.-year-old female who was initially admitted on 07/19/2024. Patient seen at the request of INITIAL HISTORY: Francine Hobson is a 38 y.o.-year-old female with PMHx of chron's disease with recurent perirectal abscess presenting with sudden abdominal pain, nausea, and vomitting. She has been in a persistent Crohn's flair since hospital discharge 05/2024 after treatment for a perirectal abscess. She underwent aspiration and drainage which was cultured as Strep anginosus, received zosyn 8 days and completed augmentin 875 po bid for 2 weeks outpatient per consultation with Dr. Scanlon. She subsequently followed up with Dr. Maguire who prescribed 2 months course of cipro and flagy completed one week ago. She has utilized medications for symptoms management but no anti-inflammatory or biologic therapy from concern of her rectal abscess. She is planning on consultation with the [facility] but has not done so yet. Her abd pain nausea and vomitting has worsened in the past week but suddenly 4 am 07/19 completed limited her function delaying ED presentation. She is tolerated PO intake with liquids, having liquid stools. She is a prior smoker. CT was obtained 07/19 demonstrating Pathologically dilated small bowel upstream from a long segment small bowel stricture with wall thickening and perienteric inflammatory change. Findings consistent with partial obstruction There are several interloop fluid collections as described likely representing abscesses. GI, Gen surg, and colorectal surgery were subsequently consulted for management. Infectious disease was consulted for guidance on antibiotic therapy given past treatment for intraabdominal infections 07/22 Patient not agreeable to NG tube Pulled it out Reports she had one episode of stool last night Cannot remember whether it was runny or formed GI panel pending Stool calprotectin pending CURRENT EVALUATION 07/23/2024 BP 107/82 Pulse 87 Temp 98 F (36.7 C) (Oral) Resp 18 Ht 1.702 m (5' 7.01 ) Wt 49 kg (108 lb 0.4 oz) LMP 07/04/2024 (Approximate) SpO2 97% BMI 16.92 kg/m Afebrile VS stable Patient continuing to have abdominal pain Able to take small amounts of food Transfer to [facility] has been requested No new issues reported Medications reviewed: On IV zosyn Labs, X rays reviewed: 07/23/2024 BUN: <2 Cr: 0.5-->0.4 WBC: 8.8 - 5.5-->4.9 Hb: 14.1 -11.8-->11.6 Plat: 294 CRP: 30.2 -39 -47.1 Cultures: Urine: Blood: Sputum : Wound: MRSA Nares: Imaging: CT ABDOMEN PELVIS W IV CONTRAST Additional Contrast? Oral Result Date: 07/19/2024 There is pathologically dilated small bowel upstream from a long segment of small bowel mural thickening and extensive perienteric inflammation. There are multiple interloop fluid collections, for example, right mid pelvis image 131/2 measuring 2.5 x 1.6 cm. Left paracentral pelvis on the same image measuring 1.6 x 1.1 cm. Enteric suture line in the right lower quadrant. Moderate volume of unorganized free fluid more anteriorly in the pelvis. CT AP 05/02/2024 Dilated proximal small bowel loops containing contrast with long segment narrowing involving a loop of ileum seen in the mid abdomen with circumferential wall thickening consistent with active inflammation. This is partially surrounded by the multiloculated abscess seen in the right lower abdomen measuring 7.1 by 7.5 cm on image 123. This is contiguous with 2 additional large abscesses seen in the right adnexa measuring 6.3 x 5.4 cm and in the upper pelvis in the midline measuring 5.3 x 4.8 cm. Overall similar to recent prior examination I have personally reviewed the past medical history, past surgical history, medications, social history, and family history, and I have updated the database accordingly. Past Medical History: Past Medical History: Diagnosis Date Crohn disease (HCC) Past Surgical History: Past Surgical History: Procedure Laterality Date BOWEL RESECTION SECTION COLONOSCOPY N/A 06/05/2024 COLONOSCOPY BIOPSY performed by Maru Maguire MD at [facility] ENDO CT ABSCESS DRAINAGE 05/03/2024 CT ABSCESS DRAIN SUBCUTANEOUS 05/03/2024 Jose Manuel Torre MD [facility] CT SCAN TONSILLECTOMY AND ADENOIDECTOMY TUMOR REMOVAL Left left shoulder, benign WISDOM TOOTH EXTRACTION Medications: piperacillin-tazobactam 3,375 mg IntraVENous Q8H citalopram 40 mg Oral Daily sodium chloride flush 5-40 mL IntraVENous 2 times per day pantoprazole (PROTONIX) 40 mg in sodium chloride (PF) 0.9 % 10 mL injection 40 mg IntraVENous Daily enoxaparin 40 mg SubCUTAneous Daily Social History: Social History Socioeconomic History Marital status: Single Spouse name: Not on file Number of children: Not on file Years of education: Not on file Highest education level: Not on file Occupational History Not on file Tobacco Use Smoking status: Former Types: Cigarettes Smokeless tobacco: Never Vaping Use Vaping status: Every Day Substances: Nicotine Substance and Sexual Activity Alcohol use: Not Currently Comment: occass. Drug use: Not Currently Types: Marijuana ([place]) Comment: occassional Sexual activity: Yes Partners: Male Other Topics Concern Not on file Social History Narrative Not on file Social Determinants of Health Financial Resource Strain: Low Risk (11/24/2022) Received from [facility] Overall Financial Resource Strain (CARDIA) Difficulty of Paying Living Expenses: Not hard at all Food Insecurity: No Food Insecurity (07/20/2024) Hunger Vital Sign Worried About Running Out of Food in the Last Year: Never true Ran Out of Food in the Last Year: Never true Transportation Needs: No Transportation Needs (07/20/2024) PRAPARE - Transportation Lack of Transportation (Medical): No Lack of Transportation (Non-Medical): No Physical Activity: Not on file Stress: Not on file Social Connections: Unknown (06/03/2021) Received from [facility] Social Connections Frequency of Communication with Friends and Family: Not asked Frequency of Social Gatherings with Friends and Family: Not asked Intimate Partner Violence: Unknown (06/03/2021) Received from [facility] Intimate Partner Violence Fear of Current or Ex-Partner: Not asked Emotionally Abused: Not asked Physically Abused: Not asked Sexually Abused: Not asked Housing Stability: Low Risk (07/20/2024) Housing Stability Vital Sign Unable to Pay for Housing in the Last Year: No Number of Times Moved in the Last Year: 0 Homeless in the Last Year: No Family History: History reviewed. No pertinent family history. Allergies: Gluten, Motrin [ibuprofen], Nsaids, and Milk (cow) Review of Systems: Constitutional: No fevers or chills. No systemic complaints Head: No headaches Eyes: No double vision or blurry vision. No conjunctival inflammation. ENT: No sore throat or runny nose.. No hearing loss, tinnitus or vertigo. Cardiovascular: No chest pain or palpitations.No shortness of breath. No KNOWLES Lung: No shortness of breath or cough. No sputum production Abdomen: No nausea, vomiting, diarrhea, or abdominal pain.. No cramps. Genitourinary: No increased urinary frequency, or dysuria. No hematuria. No suprapubic or CVA pain Musculoskeletal: No muscle aches or pains. No joint effusions, swelling or deformities Hematologic: No bleeding or bruising. Neurologic: No headache, weakness, numbness, or tingling. Integument: No rash, no ulcers. Psychiatric: No depression. Endocrine: No polyuria, no polydipsia, no polyphagia. Physical Examination : Patient Vitals for the past 8 hrs: Resp Weight 07/23/24 0929 18 -- 07/23/24 0703 14 -- 07/23/24 0600 -- 49 kg (108 lb 0.4 oz) 07/23/24 0232 14 -- General Appearance: Awake, alert, and in no apparent distress Head: Normocephalic, no trauma Eyes: Pupils equal, round, reactive to light and accommodation; extraocular movements intact; sclera anicteric; conjunctivae pink. No embolic phenomena. ENT: Oropharynx clear, without erythema, exudate, or thrush. No tenderness of sinuses. Mouth/throat: mucosa pink and moist. No lesions. Dentition in good repair. Neck:Supple, without lymphadenopathy. Thyroid normal, No bruits. Pulmonary/Chest: Clear to auscultation, without wheezes, rales, or rhonchi. No dullness to percussion. Cardiovascular: Regular rate and rhythm without murmurs, rubs, or gallops. Abdomen: Soft, non tender. Bowel sounds normal. No organomegaly All four Extremities: No cyanosis, clubbing, edema, or effusions. Neurologic: No gross sensory or motor deficits. Skin: Warm and dry with good turgor.No signs of peripheral arterial or venous insufficiency. No ulcerations. No open wounds. Medical Decision Making -Laboratory: I have independently reviewed/ordered the following labs: CBC with Differential: Recent Labs 07/22/2423807/23/24626 WBC 5.5 4.9 HGB 11.8* 11.6* HCT 39.4 38.1 PLT 294 177 LYMPHOPCT 14* -- MONOPCT 8 -- EOSPCT 3 -- BMP: Recent Labs 07/22/2423807/23/24626 NA 135* 137 K 4.6 3.8 CL 107 107 CO2 14* 18* BUN <2* <2* CREATININE 0.5* 0.4* MG -- 2.0 Hepatic Function Panel: Recent Labs 07/22/2423807/23/24626 BILIDIR -- <0.1 IBILI -- Can not be calculated BILITOT 0.2 0.2 ALKPHOS 72 64 ALT <5* <5* AST 15 16 No results for input(s): RPR in the last 72 hours. No results for input(s): HIV in the last 72 hours. No results for input(s): BC in the last 72 hours. Lab Results Component Value Date/Time BACTERIA None 07/19/2024 02:53 PM MUCUS 1+ 07/19/2024 02:53 PM RBC 4.15 07/23/2024 06:27 AM WBC 4.9 07/23/2024 06:27 AM TURBIDITY Cloudy 07/19/2024 02:53 PM Lab Results Component Value Date/Time CREATININE 0.4 07/23/2024 06:27 AM GLUCOSE 86 07/23/2024 06:27 AM Medical Decision Making-Imaging: XR ABDOMEN FOR NG/OG/NE TUBE PLACEMENT Result Date: 07/21/2024 EXAMINATION: ONE SUPINE XRAY VIEW(S) OF THE ABDOMEN 07/21/2024 9:41 pm COMPARISON: 07/20/2024, 07/19/2024 HISTORY: ORDERING SYSTEM PROVIDED HISTORY: ngt placement TECHNOLOGIST PROVIDED HISTORY: ngt placement Portable?->Yes Reason for Exam: port. upright FINDINGS: The enteric catheter tip terminates in the region of the mid to distal gastric body. Again identified are dilated loops of small bowel secondary to known enteritis and partial small bowel obstruction. No free air is identified. Enteric catheter tip terminates in the mid to distal gastric body. XR ABDOMEN (KUB) (SINGLE AP VIEW) Result Date: 07/20/2024 EXAMINATION: ONE SUPINE XRAY VIEW(S) OF THE ABDOMEN 07/20/2024 7:16 am COMPARISON: None. HISTORY: ORDERING SYSTEM PROVIDED HISTORY: abdominal pain TECHNOLOGIST PROVIDED HISTORY: abdominal pain Reason for Exam: port sup FINDINGS: Lines and tubes: None Bowel gas pattern: Contrast seen throughout the colon.Gas-filled distended bowel loops in the left upper quadrant suggest at least partial obstruction or ileus.Given limitations of supine imaging, no evidence of free air, pneumatosis or portal venous gas. Abnormal calcifications: None Bones: Within normal limits for age Other: None Dilated small bowel loops seen in left upper quadrant suggest ileus or partial obstruction. Contrast seen throughout the colon excluding complete obstruction. CT ABDOMEN PELVIS W IV CONTRAST Additional Contrast? Oral Result Date: 07/19/2024 EXAMINATION: CT OF THE ABDOMEN AND PELVIS WITH CONTRAST 07/19/2024 2:25 pm TECHNIQUE: CT of the abdomen and pelvis was performed with the administration of intravenous contrast. Multiplanar reformatted images are provided for review. Automated exposure control, iterative reconstruction, and/or weight based adjustment of the mA/kV was utilized to reduce the radiation dose to as low as reasonably achievable. COMPARISON: None. HISTORY: ORDERING SYSTEM PROVIDED HISTORY: hx chrons/abscesses/severe abdominal pain TECHNOLOGIST PROVIDED HISTORY: hx chrons/abscesses/severe abdominal pain Decision Support Exception - unselect if not a suspected or confirmed emergency medical condition->Emergency Medical Condition (MA) FINDINGS: Lower Chest: No infiltrate or effusion. Liver: There is normal hepatic parenchymal enhancement. No focal hepatic mass. Portal and hepatic veins are patent. No intrahepatic biliary ductal dilation. Biliary: Gallbladder is nondistended. No gallstones are evident. No pericholecystic inflammatory change. Spleen: Normal in size. Pancreas: No pancreatic ductal dilation. No discrete pancreatic parenchymal lesion. Adrenal Glands: Normal morphology. Kidneys / Ureters: Kidneys enhance symmetrically. No hydronephrosis. No focal renal mass. No urinary calculi. GI/Bowel: There is pathologically dilated small bowel upstream from a long segment of small bowel mural thickening and extensive perienteric inflammation. There are multiple interloop fluid collections, for example, right mid pelvis image 131/2 measuring 2.5 x 1.6 cm. Left paracentral pelvis on the same image measuring 1.6 x 1.1 cm. Enteric suture line in the right lower quadrant. Moderate volume of unorganized free fluid more anteriorly in the pelvis. Aorta/IVC: Aorta is normal in caliber. No evidence of aneurysm. Unremarkable IVC. Bladder: Nondistended. Bones/Soft Tissues: No acute osseus abnormality is identified. Pathologically dilated small bowel upstream from a long segment small bowel stricture with wall thickening and perienteric inflammatory change. Findings consistent with partial obstruction There are several interloop fluid collections as described likely representing abscesses. Moderate volume of free fluid also noted in the pelvis. Medical Decision [id number]: Results Procedure Component Value Units Date/Time Gastrointestinal Panel, Molecular [[id number]] Collected: 07/22/24 125 Order Status: Sent Specimen: Stool Updated: 07/22/24 125 Medical Decision Making-Other: Note: Thank you for allowing us to participate in the care of this patient. Please call with questions. Jaxson Scanlon MD 07/23/2024 Pager: - Office: Dietary accidently gave patient a pureed tray. Patient ate 90% of eggs and drank 120 ml of cranberry juice. Patient states that her abdominal pain is worse and has nausea. Patient had dilaudid at 0633 and is not due for dilaudid. Patient requests pain medication. She states nausea although does not want to take zofran hoping that she will vomit the food. RN paged IM, Gen/Surg, GI, and spoke to manager title. [facility]'s Gastroenterology Progress Note Francine Hobson is a 38 y.o. female patient. Hospitalization Day:4 Chief consult reason: History of Crohn's disease Severe abdominal pain Partial small bowel obstruction on CT scan Abdominal abscesses Subjective: Patient seen and examined. Patient received breakfast tray accidentally this morning in which she consumed. Since then patient developed abdominal cramping. Patient had some nausea but denies any vomiting. Patient reports having a bowel movement last evening Objective: VITALS: BP 107/82 Pulse 87 Temp 98 F (36.7 C) (Oral) Resp 14 Ht 1.702 m (5' 7.01 ) Wt 49 kg (108 lb 0.4 oz) LMP 07/04/2024 (Approximate) SpO2 97% BMI 16.92 kg/m TEMPERATURE: Current - Temp: 98 F (36.7 C); Max - Temp Av.9 F (36.6 C) Min: 97.8 F (36.6 C) Max: 98 F (36.7 C) Physical Assessment: General appearance: alert, cooperative and no distress Mental Status: oriented to person, place and time and normal affect Lungs: clear to auscultation bilaterally, normal effort Heart: regular rate and rhythm, no murmur Abdomen: soft, mild diffuse lower abdominal tenderness R>L, nondistended, hypoactive and distant bowel sounds Extremities: no edema, no redness, No clubbing Skin: warm, dry, no gross lesions or rashes CURRENT MEDICATIONS: Scheduled Meds: piperacillin-tazobactam 3,375 mg IntraVENous Q8H citalopram 40 mg Oral Daily sodium chloride flush 5-40 mL IntraVENous 2 times per day pantoprazole (PROTONIX) 40 mg in sodium chloride (PF) 0.9 % 10 mL injection 40 mg IntraVENous Daily enoxaparin 40 mg SubCUTAneous Daily Continuous Infusions: PN-Adult Premix 4.25/10 - Standard Electrolytes - Peripheral Line sodium chloride lactated ringers 125 mL/hr at 07/22/24 1928 PRN Meds:hydrOXYzine HCl, phenol, sodium chloride flush, sodium chloride, potassium chloride OR potassium alternative oral replacement OR potassium chloride, ondansetron OR ondansetron, acetaminophen OR acetaminophen, melatonin, HYDROmorphone Data Review: LABS and IMAGING: CBC Recent Labs 07/22/2423807/23/24626 WBC 5.5 4.9 HGB 11.8* 11.6* HCT 39.4 38.1 MCV 91.8 91.8 MCHC 29.9 30.4 RDW 15.4* 15.7* PLT 294 177 Immature PLTs No results found for: PLTFLUORE PT/INR No results for input(s): PROTIME , INR in the last 72 hours. ANEMIA STUDIES No results for input(s): IRONPERSAT , TIBC , IRON , FERRITIN , [id number] , FOLATE , OCCULTBLD in the last 72 hours. BMP Recent Labs 07/22/2423807/23/24626 NA 135* 137 K 4.6 3.8 CL 107 107 CO2 14* 18* BUN <2* <2* CREATININE 0.5* 0.4* GLUCOSE 72* 86 CALCIUM 8.7 8.4* MG -- 2.0 LFTS Recent Labs 07/22/2423807/23/24 0627 ALKPHOS 72 64 ALT <5* <5* AST 15 16 BILITOT 0.2 0.2 BILIDIR -- <0.1 ALBUMIN 3.1* 2.7* AMYLASE/LIPASE/AMMONIA No results for input(s): AMYLASE , LIPASE , AMMONIA in the last 72 hours. Acute Hepatitis Panel Lab Results Component Value Date/Time HEPBSAG NONREACTIVE 01/27/2024 03:21 AM HEPCAB NONREACTIVE 01/27/2024 03:21 AM HEPBIGM NONREACTIVE 01/27/2024 03:21 AM HEPAIGM NONREACTIVE 01/27/2024 03:21 AM HCV Genotype No components found for: HEPATITISCGENOTYPE HCV Quantitative No results found for: HCVQNT LIVER WORK UP: AFP No results found for: AFP Alpha 1 antitrypsin No results found for: A1A Anti - Liver/Kidney Ab No results found for: LIVER-KIDNEYMICROSOMALAB MARIELLA No results found for: MARIELLA AMA No results found for: MITOAB ASMA No results found for: SMOOTHMUSCAB Ceruloplasmin No results found for: CERULOPLSM Celiac panel No results found for: TISSTRNTIIGG , TTGIGA , IGA IgG No results found for: IGG IgM No results found for: IGM GGT No results found for: GGT PT/INR No results for input(s): PROTIME , INR in the last 72 hours. Cancer Markers: CEA: No results found for: CEA Ca 125: No results found for: CA125 Ca 19-9: No results found for: CA199 AFP: No results found for: AFP Lactic acid: Recent Labs 07/22/24 0239 07/22/24 0850 07/22/24 1754 LACTACIDWB 0.9 1.0 1.0 Radiology Review: IMPRESSION: Pathologically dilated small bowel upstream from a long segment small bowel stricture with wall thickening and perienteric inflammatory change. Findings consistent with partial obstruction There are several interloop fluid collections as described likely representing abscesses. Moderate volume of free fluid also noted in the pelvis. ENDOSCOPY Principal Problem: Crohn's colitis, unspecified complication (HCC) Active Problems: Partial intestinal obstruction (HCC) Crohn's disease of colon with complication (HCC) Generalized abdominal pain Nausea and vomiting Resolved Problems: * No resolved hospital problems. * GI Assessment: 38-year-old female with Crohn's ileocolitis s/p ileocecal resection 2006, intra-abdominal abscess 2006, recurrent partial small bowel obstruction who presents with abdominal pain, nausea and vomiting Crohn's disease complicated by stricturing, partial small bowel obstruction, and prior intra-abdominal abscesses. CT showing partial bowel obstruction and multiple fluid collections-possible abscess Recommendations: Recommend TPN -awaiting PICC line Recommend transfer to [facility] where they have a dedicated IBD team including IBD GI, IBD surgeon and door clamp operator Continue broad-spectrum antibiotics per ID discretion. Currently on Zosyn Continue n.p.o. except for sips with meds, ice chips, popsicles Appreciate assistance from primary and surgery team Plans for transfer initiated by Dr Valentin. Time spent reviewing chart, seeing patient, documentation and coordination of care for the above conditions, and discussing with attending: Around 45 minutes This plan was formulated in collaboration with Dr. Maguire Please feel free to contact me with any questions or concerns. Thank you for allowing me to participate in the care of your patient. Isabelle Gandhi, SHOULDER JOINER - BROACH TROUBLE SHOOTER on 07/23/2024 at 7:38 AM [facility] Please note that this note was generated using a voice recognition dictation software. Although every effort was made to ensure the accuracy of this automated nuclear medicine supervisor, some errors in nuclear medicine supervisor may have occurred. Attested: I have discussed the care of Francine Hobson and I have examined the patient myselft and taken ros and hpi , including pertinent history and exam findings, with the author of this note . I have reviewed the price elements of all parts of the encounter with the nurse practitioner/resident. I agree with the assessment, plan and orders as documented by the above health care provider with the following addendum Plan- Liquid diet only Continue on tPN More than 50% of the time was spent taking care of this patient in addition to the nurse practitioner time. That also included history taking follow-up physical examination and review of system. Images from the original note were not included. [facility] Office: [phone] Marco Delarosa DO, Dominic Gonzalez DO, Clifton Blanc DO, Froylan Snowden DO, Paula Jensen MD, Radha Greer MD, Nitish Parra MD, Maya Hernández MD, Porfirio García MD, Norma Smith MD, Tanya Mercado MD, Eloy Alves DO, Heidi Roche MD, Arthur Schroeder MD, Jose Manuel Delarosa DO, Shikha Pastrana MD, Obed Lilly DO, Rosangela Koehler MD, Alysa De Santiago MD, Dianne Agudelo MD, Judith Nicole MD, London Morales MD, Gamal Granger MD, Abby Salgado MD, Nereyda Lucas MD, Dru Shannon MD, Shahid Reddy MD, Ashley Schaffer DO, Cruzito Holloway MD, Eloy Valentin MD, Tony Valentin MD, Alix Acosta CNP, Shefali Hills CNP, Ashley Baker, BROACH TROUBLE SHOOTER, Muna Brandon, DNP, Neida Mars, BROACH TROUBLE SHOOTER, Jigna De Dios, BROACH TROUBLE SHOOTER, Angelina Peguero, BROACH TROUBLE SHOOTER, Adwoa Lei, BROACH TROUBLE SHOOTER, Carmen Wray PA-C, Kathy Apple PA-C, Jaz Castaneda, BROACH TROUBLE SHOOTER, Robert Huertas, BROACH TROUBLE SHOOTER, Vanessa Saleh, BROACH TROUBLE SHOOTER, Philly Mcgarry, BROACH TROUBLE SHOOTER, Josefina Higgins, BROACH TROUBLE SHOOTER, Chanel Mccullough, [facility], Ghassan Schwartz, BROACH TROUBLE SHOOTER, Lissett Root, BROACH TROUBLE SHOOTER, Lu Cooley, BROACH TROUBLE SHOOTER [facility] IN-PATIENT SERVICE [facility] Progress Note 07/22/2024 3:00 PM Name: Francine Hobson Acct: [id number] Room: [facility]/0243-01 Day: 3 Admit Date: 07/19/2024 12:43 PM PCP: Dalia Apple DO Code Status: Full Code Subjective: Patient seen examined bedside today. She was able to get NG tube last night with Ativan, but this was pulled out early in the morning. Did discuss with GI/surgery recommended transferring patient to [facility]. This was initiated this morning with [facility] access, awaiting callback. Brief History: This is a 38-year-old female with a history of Crohn's disease who presents to the hospital for evaluation of small bowel obstruction as well as for management of abdominal abscess. CT scan showed pathologically dilated small bowel upstream from a long segment of small bowel stricture with wall thickening and perienteric inflammatory changes consistent with a partial obstruction. She also had moderate volume of free fluid in the pelvis in addition to several fluid collection Medications: Allergies: Allergies Allergen Reactions Gluten Motrin [Ibuprofen] Nsaids Milk (Cow) Diarrhea Current Meds: Scheduled Meds: piperacillin-tazobactam 3,375 mg IntraVENous Q8H citalopram 40 mg Oral Daily sodium chloride flush 5-40 mL IntraVENous 2 times per day pantoprazole (PROTONIX) 40 mg in sodium chloride (PF) 0.9 % 10 mL injection 40 mg IntraVENous Daily enoxaparin 40 mg SubCUTAneous Daily Continuous Infusions: sodium chloride lactated ringers 125 mL/hr at 07/22/24 1209 PRN Meds: hydrOXYzine HCl, phenol, sodium chloride flush, sodium chloride, potassium chloride OR potassium alternative oral replacement OR potassium chloride, ondansetron OR ondansetron, acetaminophen OR acetaminophen, melatonin, HYDROmorphone Data: Vitals: BP 112/80 Pulse 80 Temp 97.8 F (36.6 C) Resp 18 Ht 1.702 m (5' 7.01 ) Wt 53.7 kg (118 lb 6.4 oz) LMP 07/04/2024 (Approximate) SpO2 98% BMI 18.54 kg/m Temp (24hrs), Av F (36.7 C), Min:97.8 F (36.6 C), Max:98.1 F (36.7 C) No results for input(s): POCGLU in the last 72 hours. I/O (24Hr): Intake/Output Summary (Last 24 hours) at 07/22/2024 1500 Last data filed at 07/22/2024 1241 Gross per 24 hour Intake 2150 ml Output -- Net 2150 ml Labs: Hematology: Recent Labs 07/19/24 1848 07/20/24 0615 07/21/24 0323 07/22/24 0239 WBC -- 4.9 -- 5.5 RBC -- 3.93* -- 4.29 HGB -- 10.9* -- 11.8* HCT -- 33.5* -- 39.4 MCV -- 85.2 -- 91.8 MCH -- 27.7 -- 27.5 MCHC -- 32.5 -- 29.9 RDW -- 15.9* -- 15.4* PLT -- 223 -- 294 MPV -- 9.6 -- 9.4 SEDRATE 15 14 24* -- CRP 30.2* 39.2* 47.1* -- Chemistry: Recent Labs 07/20/24 0615 07/20/24 0947 07/21/24 1513 07/22/24 0239 07/22/24 0850 NA 138 -- -- 135* -- K 3.1* -- -- 4.6 -- CL 103 -- -- 107 -- CO2 25 -- -- 14* -- GLUCOSE 72* -- -- 72* -- BUN 4* -- -- <2* -- CREATININE 0.4* -- -- 0.5* -- MG 1.7 -- -- -- -- ANIONGAP 10 -- -- 14 -- LABGLOM >90 -- -- >90 -- CALCIUM 8.0* -- -- 8.7 -- LACTACIDWB -- < > 0.7 0.9 1.0 < > = values in this interval not displayed. Recent Labs 07/22/24 0239 AST 15 ALT <5* ALKPHOS 72 BILITOT 0.2 ABG:No results found for: POCPH , PHART , PH , POCPCO2 , UTD3YGK , PCO2 , POCPO2 , PO2ART , PO2 , POCHCO3 , AMN6GMJ , HCO3 , NBEA , PBEA , BEART , BE , THGBART , THB , ZUZ5PSI , HNCC8KLL , U2OHYIDV , O2SAT , FIO2 Lab Results Component Value Date/Time SPECIAL Site: Body Fluid 05/03/2024 06:05 PM Lab Results Component Value Date/Time CULTURE POSITIVE Fluid Culture 05/03/2024 06:05 PM CULTURE 05/03/2024 06:05 PM DIRECT GRAM STAIN FROM BOTTLE: GRAM POSITIVE COCCI IN CHAINS CULTURE (A) 05/03/2024 06:05 PM VIRIDANS STREPTOCOCCUS GROUP Identified as : STREPTOCOCCUS ANGINOSUS Identification by MALDI-TOF CULTURE 05/03/2024 06:05 PM (NOTE) Direct Gram Stain from bottle result called to and read back by:WAQAS De Guzman 05/04/24 5830 Radiology: XR ABDOMEN (KUB) (SINGLE AP VIEW) Result Date: 07/20/2024 Dilated small bowel loops seen in left upper quadrant suggest ileus or partial obstruction. Contrast seen throughout the colon excluding complete obstruction. CT ABDOMEN PELVIS W IV CONTRAST Additional Contrast? Oral Result Date: 07/19/2024 Pathologically dilated small bowel upstream from a long segment small bowel stricture with wall thickening and perienteric inflammatory change. Findings consistent with partial obstruction There are several interloop fluid collections as described likely representing abscesses. Moderate volume of free fluid also noted in the pelvis. Physical Examination: General appearance: alert, cooperative and ill appearing . She is uncomfortable. Mental Status: oriented to person, place and time and normal affect Lungs: clear to auscultation bilaterally, normal effort Heart: regular rate and rhythm, no murmur Abdomen: Soft, +tender to palpation throughout nonperitoneal on distended surgical scars noted Extremities: no edema, redness, tenderness in the calves Skin: no gross lesions, rashes, induration Assessment: Hospital Problems Last Modified POA * (Principal) Crohn's colitis, unspecified complication (HCC) 07/19/2024 Yes Partial intestinal obstruction (HCC) 07/20/2024 Yes Crohn's disease of colon with complication (HCC) 07/19/2024 Yes Generalized abdominal pain 07/19/2024 Yes Nausea and vomiting 07/20/2024 Yes Plan: Abdominal pain likely due to intraabdominal abscess Partial SBO in the setting of stricture Hx of Crohn's disease. -CT scan reviewed -Hold off on steroids given intra-abdominal infection -NPO, IVF - On zosyn, ID assisting. Seems abscess not accessible by IR. Plan to keep on zosyn in hospital, and ertapenem on discharge. - Several attempts for NGT failed, was able to place one yesterday but patient pulled it out. -d/w colorectal surgery and GI, who recommend transfer to [facility] for surgical management of recurrent abscess which can be done under care of IBD specialists. Transfer initiated with [employer] access, I did talk to their accepting provider who would like to view the scans prior to transfer. Asked [facility] to send the images for review to [facility]. 2. Malnutrition -Back Tender Pulp Drier consulted. Patient will need TPN. PICC line ordered. 3. Anxiety - Continue home Celexa Eloy Valentin MD 07/22/2024 3:00 PM Colorectal surgery: Daily Progress Note PATIENT NAME: Francine Hobson TODAY'S DATE: 07/22/2024, 11:44 AM CC: My belly hurts SUBJECTIVE: Pt seen and examined at bedside. She was initially amenable to NG tube placement overnight however reports that the NG tube came out while she was sleeping. States that she feels much better without the NG tube in place. She denies any nausea or vomiting. Did have a bowel movement yesterday. Has been passing small amounts of flatus. Is amenable to transfer to [facility] for higher level care. OBJECTIVE: VITALS: BP 112/80 Pulse 80 Temp 97.8 F (36.6 C) Resp 16 Ht 1.702 m (5' 7.01 ) Wt 53.7 kg (118 lb 6.4 oz) LMP 07/04/2024 (Approximate) SpO2 98% BMI 18.54 kg/m INTAKE/OUTPUT: Intake/Output Summary (Last 24 hours) at 07/22/2024 1144 Last data filed at 07/21/2024 2019 Gross per 24 hour Intake 1310 ml Output -- Net 1310 ml PHYSICAL EXAM: Physical Exam Vitals reviewed. Constitutional: General: She is not in acute distress. Appearance: She is not toxic-appearing. HENT: Head: Normocephalic and atraumatic. Right Ear: External ear normal. Left Ear: External ear normal. Nose: Nose normal. Mouth/Throat: Mouth: Mucous membranes are dry. Eyes: Extraocular Movements: Extraocular movements intact. Cardiovascular: Rate and Rhythm: Normal rate and regular rhythm. Pulmonary: Effort: Pulmonary effort is normal. No respiratory distress. Abdominal: General: There is no distension. Palpations: Abdomen is soft. Comments: Mild diffuse tenderness to palpation Skin: General: Skin is warm and dry. Capillary Refill: Capillary refill takes less than 2 seconds. Neurological: General: No focal deficit present. Mental Status: She is alert and oriented to person, place, and time. Psychiatric: Mood and Affect: Mood normal. Behavior: Behavior normal. Data: {LABS: Recent Results (from the past 24 hour(s)) Lactic Acid Collection Time: 07/21/24 3:13 PM Result Value Ref Range Lactic Acid, Whole Blood 0.7 0.7 - 2.1 mmol/L Lactic Acid Collection Time: 07/22/24 2:39 AM Result Value Ref Range Lactic Acid, Whole Blood 0.9 0.7 - 2.1 mmol/L CBC with Auto Differential Collection Time: 07/22/24 2:39 AM Result Value Ref Range WBC 5.5 3.5 - 11.3 k/uL RBC 4.29 3.95 - 5.11 m/uL Hemoglobin 11.8 (L) 11.9 - 15.1 g/dL Hematocrit 39.4 36.3 - 47.1 % MCV 91.8 82.6 - 102.9 fL MCH 27.5 25.2 - 33.5 pg MCHC 29.9 28.4 - 34.8 g/dL RDW 15.4 (H) 11.8 - 14.4 % Platelets 294 138 - 453 k/uL MPV 9.4 8.1 - 13.5 fL NRBC Automated 0.0 0.0 per 100 WBC RBC Morphology ANISOCYTOSIS PRESENT Neutrophils % 73 (H) 36 - 65 % Lymphocytes % 14 (L) 24 - 43 % Monocytes % 8 3 - 12 % Eosinophils % 3 1 - 4 % Basophils % 1 0 - 2 % Immature Granulocytes % 0 0 % Neutrophils Absolute 4.04 1.50 - 8.10 k/uL Lymphocytes Absolute 0.79 (L) 1.10 - 3.70 k/uL Monocytes Absolute 0.46 0.10 - 1.20 k/uL Eosinophils Absolute 0.19 0.00 - 0.44 k/uL Basophils Absolute 0.04 0.00 - 0.20 k/uL Immature Granulocytes Absolute <0.03 0.00 - 0.30 k/uL Comprehensive Metabolic Panel Collection Time: 07/22/24 2:39 AM Result Value Ref Range Sodium 135 (L) 136 - 145 mmol/L Potassium 4.6 3.7 - 5.3 mmol/L Chloride 107 98 - 107 mmol/L CO2 14 (L) 20 - 31 mmol/L Anion Gap 14 9 - 16 mmol/L Glucose 72 (L) 74 - 99 mg/dL BUN <2 (L) 6 - 20 mg/dL Creatinine 0.5 (L) 0.6 - 0.9 mg/dL Est, Glom Filt Rate >90 >60 mL/min/1.73m2 Calcium 8.7 8.6 - 10.4 mg/dL Total Protein 5.9 (L) 6.6 - 8.7 g/dL Albumin 3.1 (L) 3.5 - 5.2 g/dL Albumin/Globulin Ratio 1.1 1.0 - 2.5 Total Bilirubin 0.2 0.0 - 1.2 mg/dL Alkaline Phosphatase 72 35 - 104 U/L ALT <5 (L) 10 - 35 U/L AST 15 10 - 35 U/L Lactic Acid Collection Time: 07/22/24 8:50 AM Result Value Ref Range Lactic Acid, Whole Blood 1.0 0.7 - 2.1 mmol/L Radiology Review: XR ABDOMEN (KUB) (SINGLE AP VIEW) Result Date: 07/20/2024 Dilated small bowel loops seen in left upper quadrant suggest ileus or partial obstruction. Contrast seen throughout the colon excluding complete obstruction. CT ABDOMEN PELVIS W IV CONTRAST Additional Contrast? Oral Result Date: 07/19/2024 Pathologically dilated small bowel upstream from a long segment small bowel stricture with wall thickening and perienteric inflammatory change. Findings consistent with partial obstruction There are several interloop fluid collections as described likely representing abscesses. Moderate volume of free fluid also noted in the pelvis. ASSESSMENT: Active Hospital Problems Diagnosis Date Noted Nausea and vomiting [R11.2] 07/20/2024 Crohn's colitis, unspecified complication (HCC) [K50.119] 07/19/2024 Generalized abdominal pain [R10.84] 05/02/2024 Partial intestinal obstruction (HCC) [K56.600] 01/26/2024 Crohn's disease of colon with complication (HCC) [K50.119] 06/04/2020 38 yo female with hx Crohn's presents with small bowel obstruction Plan: Continue medical mgmt and supportive care per primary Recommend NG tube for bowel decompression. Pt currently refusing Continue NPO with IVF Recommend K>4, Mag >2 Trend lactic acid White count normal as of 07/20. Will obtain CBC this evening. Continue IV Zosyn GI consult, pt will need medical management of Crohn's disease Colorectal surgery not planning surgical intervention on this patient's small bowel. Recommend evaluation by general surgery service at [facility]. This has been discussed with the patient's primary team. Deja Zamora DO 07/22/24 11:46 AM General Surgery PGY 1 [facility] - Progress Note Today's Date and Time: 07/22/2024, 8:21 AM Impression : Interloop multiple abscess on CT 07/19/24 Did have 05/01/24 multiloculated abscesses - IR - strep anginosus - no drain left in place Treated w augmentin then cipro and flagyl outpt till 07/20/24 CRP elevated 47 Currently partial small bowel obstruction Crohn's Disease 06/05/2024 colonscopy biopsy of rectum moderate to sever active ileitis with erosion and ulceration PSHx: Ileo-cecal resection 2013 Recommendations: Recommend Zosyn while in hospital IV ertapenem when ready for home picc x 28 days Office f/up in [address] Grover for infection. Please call [phone] abdomen prior to visit Medical Decision Making/Summary/Discussion: 025 IR - abscess not accessible Disc w IR -all are much better in size compared to April CTAP Left small fluid collection w an ovarian cyst- and 3 smaller Improved abscesses., largest 2.5 cm on the right pelvis above the uterus, interloop Has flare from the IBD-with some reactive fluid in the anterior pelvic from the IBD No bowel fistula seen on CTAP Gen surg recommending NPO, NG placement for decompression due to small bowel obstruction but she declined it Tentative plan for [facility], d/c with primary Infection Control Recommendations [place] Precautions Contact isolation Antimicrobial Stewardship Recommendations Simplification of therapy Targeted therapy Coordination of Outpatient Care: Estimated Length of IV antimicrobials:TBD Patient will need Midline Catheter Insertion: TBD Patient will need PICC line Insertion:TBD Patient will need: Home IV , Infusion Center, SNF, LTAC: TBD Patient will need outpatient wound care: Chief complaint/reason for consultation: Intra-abdominal infection History of Present Illness: Francine Hobson is a 38 y.o.-year-old female who was initially admitted on 07/19/2024. Patient seen at the request of INITIAL HISTORY: Francine Hobson is a 38 y.o.-year-old female with PMHx of chron's disease with recurent perirectal abscess presenting with sudden abdominal pain, nausea, and vomitting. She has been in a persistent Crohn's flair since hospital discharge 05/2024 after treatment for a perirectal abscess. She underwent aspiration and drainage which was cultured as Strep anginosus, received zosyn 8 days and completed augmentin 875 po bid for 2 weeks outpatient per consultation with Dr. Scanlon. She subsequently followed up with Dr. Maguire who prescribed 2 months course of cipro and flagy completed one week ago. She has utilized medications for symptoms management but no anti-inflammatory or biologic therapy from concern of her rectal abscess. She is planning on consultation [facility] but has not done so yet. Her abd pain nausea and vomitting has worsened in the past week but suddenly 4 am 07/19 completed limited her function delaying ED presentation. She is tolerated PO intake with liquids, having liquid stools. She is a prior smoker. CT was obtained 07/19 demonstrating Pathologically dilated small bowel upstream from a long segment small bowel stricture with wall thickening and perienteric inflammatory change. Findings consistent with partial obstruction There are several interloop fluid collections as described likely representing abscesses. GI, Gen surg, and colorectal surgery were subsequently consulted for management. Infectious disease was consulted for guidance on antibiotic therapy given past treatment for intraabdominal infections CURRENT EVALUATION 07/22/2024 BP 112/80 Pulse 72 Temp 98.1 F (36.7 C) (Oral) Resp 18 Ht 1.702 m (5' 7.01 ) Wt 53.7 kg (118 lb 6.4 oz) LMP 07/04/2024 (Approximate) SpO2 98% BMI 18.54 kg/m 07/22 Patient not agreeable to NG tube Pulled it out Reports she had one episode of stool last night Cannot remember whether it was runny or formed GI panel pending Stool calprotectin pending Labs, X rays reviewed: 07/22/2024 BUN: Less than 2 Cr: 0.5 WBC: 8.8 - 5.5 Hb: 14.1 -11.8 Plat: 294 CRP: 30.2 -39 -47.1 Cultures: Urine: Blood: Sputum : Wound: MRSA Nares: Imaging: CT ABDOMEN PELVIS W IV CONTRAST Additional Contrast? Oral Result Date: 07/19/2024 There is pathologically dilated small bowel upstream from a long segment of small bowel mural thickening and extensive perienteric inflammation. There are multiple interloop fluid collections, for example, right mid pelvis image 131/2 measuring 2.5 x 1.6 cm. Left paracentral pelvis on the same image measuring 1.6 x 1.1 cm. Enteric suture line in the right lower quadrant. Moderate volume of unorganized free fluid more anteriorly in the pelvis. CT AP 05/02/2024 Dilated proximal small bowel loops containing contrast with long segment narrowing involving a loop of ileum seen in the mid abdomen with circumferential wall thickening consistent with active inflammation. This is partially surrounded by the multiloculated abscess seen in the right lower abdomen measuring 7.1 by 7.5 cm on image 123. This is contiguous with 2 additional large abscesses seen in the right adnexa measuring 6.3 x 5.4 cm and in the upper pelvis in the midline measuring 5.3 x 4.8 cm. Overall similar to recent prior examination I have personally reviewed the past medical history, past surgical history, medications, social history, and family history, and I have updated the database accordingly. Past Medical History: Past Medical History: Diagnosis Date Crohn disease (HCC) Past Surgical History: Past Surgical History: Procedure Laterality Date BOWEL RESECTION SECTION COLONOSCOPY N/A 06/05/2024 COLONOSCOPY BIOPSY performed by Maru Maguire MD at [facility] CT ABSCESS DRAINAGE 05/03/2024 CT ABSCESS DRAIN SUBCUTANEOUS 05/03/2024 Jose Manuel Torre MD [facility] CT SCAN TONSILLECTOMY AND ADENOIDECTOMY TUMOR REMOVAL Left left shoulder, benign WISDOM TOOTH EXTRACTION Medications: piperacillin-tazobactam 3,375 mg IntraVENous Q8H citalopram 40 mg Oral Daily sodium chloride flush 5-40 mL IntraVENous 2 times per day pantoprazole (PROTONIX) 40 mg in sodium chloride (PF) 0.9 % 10 mL injection 40 mg IntraVENous Daily enoxaparin 40 mg SubCUTAneous Daily Social History: Social History Socioeconomic History Marital status: Single Spouse name: Not on file Number of children: Not on file Years of education: Not on file Highest education level: Not on file Occupational History Not on file Tobacco Use Smoking status: Former Types: Cigarettes Smokeless tobacco: Never Vaping Use Vaping status: Every Day Substances: Nicotine Substance and Sexual Activity Alcohol use: Not Currently Comment: occass. Drug use: Not Currently Types: Marijuana ([place]) Comment: occassional Sexual activity: Yes Partners: Male Other Topics Concern Not on file Social History Narrative Not on file Social Determinants of Health Financial Resource Strain: Low Risk (11/24/2022) Received from [facility] Overall Financial Resource Strain (CARDIA) Difficulty of Paying Living Expenses: Not hard at all Food Insecurity: No Food Insecurity (07/20/2024) Hunger Vital Sign Worried About Running Out of Food in the Last Year: Never true Ran Out of Food in the Last Year: Never true Transportation Needs: No Transportation Needs (07/20/2024) PRAPARE - Transportation Lack of Transportation (Medical): No Lack of Transportation (Non-Medical): No Physical Activity: Not on file Stress: Not on file Social Connections: Unknown (06/03/2021) Received from [facility] Social Connections Frequency of Communication with Friends and Family: Not asked Frequency of Social Gatherings with Friends and Family: Not asked Intimate Partner Violence: Unknown (06/03/2021) Received from [facility] Intimate Partner Violence Fear of Current or Ex-Partner: Not asked Emotionally Abused: Not asked Physically Abused: Not asked Sexually Abused: Not asked Housing Stability: Low Risk (07/20/2024) Housing Stability Vital Sign Unable to Pay for Housing in the Last Year: No Number of Times Moved in the Last Year: 0 Homeless in the Last Year: No Family History: History reviewed. No pertinent family history. Allergies: Gluten, Motrin [ibuprofen], Nsaids, and Milk (cow) Review of Systems: Constitutional: No fevers or chills. No systemic complaints Head: No headaches Eyes: No double vision or blurry vision. No conjunctival inflammation. ENT: No sore throat or runny nose.. No hearing loss, tinnitus or vertigo. Cardiovascular: No chest pain or palpitations.No shortness of breath. No KNOWLES Lung: No shortness of breath or cough. No sputum production Abdomen: No nausea, vomiting, diarrhea, or abdominal pain.. No cramps. Genitourinary: No increased urinary frequency, or dysuria. No hematuria. No suprapubic or CVA pain Musculoskeletal: No muscle aches or pains. No joint effusions, swelling or deformities Hematologic: No bleeding or bruising. Neurologic: No headache, weakness, numbness, or tingling. Integument: No rash, no ulcers. Psychiatric: No depression. Endocrine: No polyuria, no polydipsia, no polyphagia. Physical Examination : Patient Vitals for the past 8 hrs: Resp 07/22/24 0752 18 07/22/24 0446 15 General Appearance: Awake, alert, and in no apparent distress Head: Normocephalic, no trauma Eyes: Pupils equal, round, reactive to light and accommodation; extraocular movements intact; sclera anicteric; conjunctivae pink. No embolic phenomena. ENT: Oropharynx clear, without erythema, exudate, or thrush. No tenderness of sinuses. Mouth/throat: mucosa pink and moist. No lesions. Dentition in good repair. Neck:Supple, without lymphadenopathy. Thyroid normal, No bruits. Pulmonary/Chest: Clear to auscultation, without wheezes, rales, or rhonchi. No dullness to percussion. Cardiovascular: Regular rate and rhythm without murmurs, rubs, or gallops. Abdomen: Soft, non tender. Bowel sounds normal. No organomegaly All four Extremities: No cyanosis, clubbing, edema, or effusions. Neurologic: No gross sensory or motor deficits. Skin: Warm and dry with good turgor.No signs of peripheral arterial or venous insufficiency. No ulcerations. No open wounds. Medical Decision Making -Laboratory: I have independently reviewed/ordered the following labs: CBC with Differential: Recent Labs 07/20/24 0615 07/22/24 0239 WBC 4.9 5.5 HGB 10.9* 11.8* HCT 33.5* 39.4 PLT 223 294 LYMPHOPCT 20* 14* MONOPCT 11 8 EOSPCT 2 3 BMP: Recent Labs 07/20/24 0615 07/22/24 0239 NA 138 135* K 3.1* 4.6 CL 103 107 CO2 25 14* BUN 4* <2* CREATININE 0.4* 0.5* MG 1.7 -- Hepatic Function Panel: Recent Labs 07/19/24 1309 07/22/24 0239 BILITOT 0.3 0.2 ALKPHOS 94 72 ALT 9* <5* AST 19 15 No results for input(s): RPR in the last 72 hours. No results for input(s): HIV in the last 72 hours. No results for input(s): BC in the last 72 hours. Lab Results Component Value Date/Time BACTERIA None 07/19/2024 02:53 PM MUCUS 1+ 07/19/2024 02:53 PM RBC 4.29 07/22/2024 02:39 AM WBC 5.5 07/22/2024 02:39 AM TURBIDITY Cloudy 07/19/2024 02:53 PM Lab Results Component Value Date/Time CREATININE 0.5 07/22/2024 02:39 AM GLUCOSE 72 07/22/2024 02:39 AM Medical Decision Making-Imaging: XR ABDOMEN FOR NG/OG/NE TUBE PLACEMENT Result Date: 07/21/2024 EXAMINATION: ONE SUPINE XRAY VIEW(S) OF THE ABDOMEN 07/21/2024 9:41 pm COMPARISON: 07/20/2024, 07/19/2024 HISTORY: ORDERING SYSTEM PROVIDED HISTORY: ngt placement TECHNOLOGIST PROVIDED HISTORY: ngt placement Portable?->Yes Reason for Exam: port. upright FINDINGS: The enteric catheter tip terminates in the region of the mid to distal gastric body. Again identified are dilated loops of small bowel secondary to known enteritis and partial small bowel obstruction. No free air is identified. Enteric catheter tip terminates in the mid to distal gastric body. XR ABDOMEN (KUB) (SINGLE AP VIEW) Result Date: 07/20/2024 EXAMINATION: ONE SUPINE XRAY VIEW(S) OF THE ABDOMEN 07/20/2024 7:16 am COMPARISON: None. HISTORY: ORDERING SYSTEM PROVIDED HISTORY: abdominal pain TECHNOLOGIST PROVIDED HISTORY: abdominal pain Reason for Exam: port sup FINDINGS: Lines and tubes: None Bowel gas pattern: Contrast seen throughout the colon.Gas-filled distended bowel loops in the left upper quadrant suggest at least partial obstruction or ileus.Given limitations of supine imaging, no evidence of free air, pneumatosis or portal venous gas. Abnormal calcifications: None Bones: Within normal limits for age Other: None Dilated small bowel loops seen in left upper quadrant suggest ileus or partial obstruction. Contrast seen throughout the colon excluding complete obstruction. CT ABDOMEN PELVIS W IV CONTRAST Additional Contrast? Oral Result Date: 07/19/2024 EXAMINATION: CT OF THE ABDOMEN AND PELVIS WITH CONTRAST 07/19/2024 2:25 pm TECHNIQUE: CT of the abdomen and pelvis was performed with the administration of intravenous contrast. Multiplanar reformatted images are provided for review. Automated exposure control, iterative reconstruction, and/or weight based adjustment of the mA/kV was utilized to reduce the radiation dose to as low as reasonably achievable. COMPARISON: None. HISTORY: ORDERING SYSTEM PROVIDED HISTORY: hx chrons/abscesses/severe abdominal pain TECHNOLOGIST PROVIDED HISTORY: hx chrons/abscesses/severe abdominal pain Decision Support Exception - unselect if not a suspected or confirmed emergency medical condition->Emergency Medical Condition (MA) FINDINGS: Lower Chest: No infiltrate or effusion. Liver: There is normal hepatic parenchymal enhancement. No focal hepatic mass. Portal and hepatic veins are patent. No intrahepatic biliary ductal dilation. Biliary: Gallbladder is nondistended. No gallstones are evident. No pericholecystic inflammatory change. Spleen: Normal in size. Pancreas: No pancreatic ductal dilation. No discrete pancreatic parenchymal lesion. Adrenal Glands: Normal morphology. Kidneys / Ureters: Kidneys enhance symmetrically. No hydronephrosis. No focal renal mass. No urinary calculi. GI/Bowel: There is pathologically dilated small bowel upstream from a long segment of small bowel mural thickening and extensive perienteric inflammation. There are multiple interloop fluid collections, for example, right mid pelvis image 131/2 measuring 2.5 x 1.6 cm. Left paracentral pelvis on the same image measuring 1.6 x 1.1 cm. Enteric suture line in the right lower quadrant. Moderate volume of unorganized free fluid more anteriorly in the pelvis. Aorta/IVC: Aorta is normal in caliber. No evidence of aneurysm. Unremarkable IVC. Bladder: Nondistended. Bones/Soft Tissues: No acute osseus abnormality is identified. Pathologically dilated small bowel upstream from a long segment small bowel stricture with wall thickening and perienteric inflammatory change. Findings consistent with partial obstruction There are several interloop fluid collections as described likely representing abscesses. Moderate volume of free fluid also noted in the pelvis. Medical Decision Uouwir-Wzvpqffb-Hnuhb: Results Procedure Component Value Units Date/Time Gastrointestinal Panel, Molecular [[id number]] Order Status: Sent Specimen: Stool Medical Decision Making-Other: Note: Thank you for allowing us to participate in the care of this patient. Please call with questions. Marlene Rodas MD ATTESTATION: I have discussed the case, including pertinent history and exam findings with the medical practice administrator. I have evaluated the History, physical findings and pictures of the patient and the price elements of the encounter have been performed by me. I have reviewed the laboratory data, other diagnostic studies and discussed them with the medical practice administrator. I have updated the medical record where necessary. I agree with the assessment, plan and orders as documented by the medical practice administrator and I have modified them as necessary. Jaxson Scanlon MD. 07/22/2024 Pager: - Office: [facility]'s Gastroenterology Progress Note Francine Hobson is a 38 y.o. female patient. Hospitalization Day:3 Chief consult reason: History of Crohn's disease Severe abdominal pain Partial small bowel obstruction on CT scan Abdominal abscesses Subjective: Patient seen and examined. Patient had NG tube placed last night which she reports came out . Patient reports she was having nausea and vomiting while trying to take sips of liquid despite NG tube. States she was gagging on tube. Patient reports having a small bowel movement yesterday, passing a small amount of flatus. Discussed transfer to [facility]. Objective: VITALS: BP 112/80 Pulse 72 Temp 98.1 F (36.7 C) (Oral) Resp 15 Ht 1.702 m (5' 7.01 ) Wt 53.7 kg (118 lb 6.4 oz) LMP 07/04/2024 (Approximate) SpO2 98% BMI 18.54 kg/m TEMPERATURE: Current - Temp: 98.1 F (36.7 C); Max - Temp Av.8 F (36.6 C) Min: 97.5 F (36.4 C) Max: 98.1 F (36.7 C) Physical Assessment: General appearance: alert, cooperative and no distress Mental Status: oriented to person, place and time and normal affect Lungs: clear to auscultation bilaterally, normal effort Heart: regular rate and rhythm, no murmur Abdomen: soft, mild diffuse lower abdominal tenderness R>L, nondistended, hypoactive and distant bowel sounds Extremities: no edema, no redness, No clubbing Skin: warm, dry, no gross lesions or rashes CURRENT MEDICATIONS: Scheduled Meds: piperacillin-tazobactam 3,375 mg IntraVENous Q8H citalopram 40 mg Oral Daily sodium chloride flush 5-40 mL IntraVENous 2 times per day pantoprazole (PROTONIX) 40 mg in sodium chloride (PF) 0.9 % 10 mL injection 40 mg IntraVENous Daily enoxaparin 40 mg SubCUTAneous Daily Continuous Infusions: sodium chloride lactated ringers 125 mL/hr at 07/22/24 0600 PRN Meds:hydrOXYzine HCl, phenol, sodium chloride flush, sodium chloride, potassium chloride OR potassium alternative oral replacement OR potassium chloride, ondansetron OR ondansetron, acetaminophen OR acetaminophen, melatonin, HYDROmorphone Data Review: LABS and IMAGING: CBC Recent Labs 07/19/24 1309 07/20/24 0615 07/22/24 0239 WBC 8.8 4.9 5.5 HGB 14.1 10.9* 11.8* HCT 42.3 33.5* 39.4 MCV 83.3 85.2 91.8 MCHC 33.3 32.5 29.9 RDW 16.0* 15.9* 15.4* PLT 384 223 294 Immature PLTs No results found for: PLTFLUORE PT/INR No results for input(s): PROTIME , INR in the last 72 hours. ANEMIA STUDIES Recent Labs 07/20/24 0615 IRONPERSAT 20 TIBC 177* IRON 35* FERRITIN 164* BMP Recent Labs 07/19/24 1309 07/20/24 0615 07/22/24 0239 NA 137 138 135* K 3.5* 3.1* 4.6 CL 98 103 107 CO2 26 25 14* BUN 6 4* <2* CREATININE 0.5* 0.4* 0.5* GLUCOSE 104* 72* 72* CALCIUM 9.5 8.0* 8.7 MG -- 1.7 -- LFTS Recent Labs 07/19/24 1309 07/22/24 0239 ALKPHOS 94 72 ALT 9* <5* AST 19 15 BILITOT 0.3 0.2 ALBUMIN 3.7 3.1* AMYLASE/LIPASE/AMMONIA Recent Labs 07/19/24 1309 LIPASE 17 Acute Hepatitis Panel Lab Results Component Value Date/Time HEPBSAG NONREACTIVE 01/27/2024 03:21 AM HEPCAB NONREACTIVE 01/27/2024 03:21 AM HEPBIGM NONREACTIVE 01/27/2024 03:21 AM HEPAIGM NONREACTIVE 01/27/2024 03:21 AM HCV Genotype No components found for: HEPATITISCGENOTYPE HCV Quantitative No results found for: HCVQNT LIVER WORK UP: AFP No results found for: AFP Alpha 1 antitrypsin No results found for: A1A Anti - Liver/Kidney Ab No results found for: LIVER-KIDNEYMICROSOMALAB MARIELLA No results found for: MARIELLA AMA No results found for: MITOAB ASMA No results found for: SMOOTHMUSCAB Ceruloplasmin No results found for: CERULOPLSM Celiac panel No results found for: TISSTRNTIIGG , TTGIGA , IGA IgG No results found for: IGG IgM No results found for: IGM GGT No results found for: GGT PT/INR No results for input(s): PROTIME , INR in the last 72 hours. Cancer Markers: CEA: No results found for: CEA Ca 125: No results found for: CA125 Ca 19-9: No results found for: CA199 AFP: No results found for: AFP Lactic acid: Recent Labs 07/21/24 0927 07/21/24 1513 07/22/24 0239 LACTACIDWB 0.8 0.7 0.9 Radiology Review: IMPRESSION: Pathologically dilated small bowel upstream from a long segment small bowel stricture with wall thickening and perienteric inflammatory change. Findings consistent with partial obstruction There are several interloop fluid collections as described likely representing abscesses. Moderate volume of free fluid also noted in the pelvis. ENDOSCOPY Principal Problem: Crohn's colitis, unspecified complication (HCC) Active Problems: Partial intestinal obstruction (HCC) Crohn's disease of colon with complication (HCC) Generalized abdominal pain Nausea and vomiting Resolved Problems: * No resolved hospital problems. * GI Assessment: 38-year-old female with Crohn's ileocolitis s/p ileocecal resection 2006, intra-abdominal abscess 2006, recurrent partial small bowel obstruction who presents with abdominal pain, nausea and vomiting Crohn's disease complicated by stricturing, partial small bowel obstruction, and prior intra-abdominal abscesses. CT showing partial bowel obstruction and multiple fluid collections-possible abscess Recommendations: Recommend TPN Recommend transfer to [facility] where they have a dedicated IBD team including IBD GI, IBD surgeon and door clamp operator Continue broad-spectrum antibiotics with Zosyn Continue n.p.o. except for sips with meds, ice chips, popsicles Appreciate assistance from primary and surgery team Need for transfer discussed Dr Valentin, patient and family Time spent reviewing chart, seeing patient, documentation and coordination of care for the above conditions, and discussing with attending: Around 45 minutes This plan was formulated in collaboration with Dr. Maguire Please feel free to contact me with any questions or concerns. Thank you for allowing me to participate in the care of your patient. Isabelle Gandhi, SHOULDER JOINER - BROACH TROUBLE SHOOTER on 07/22/2024 at 6:39 AM [facility] Please note that this note was generated using a voice recognition dictation software. Although every effort was made to ensure the accuracy of this automated nuclear medicine supervisor, some errors in nuclear medicine supervisor may have occurred. Attested: I have discussed the care of Francine Hobson and I have examined the patient myselft and taken ros and hpi , including pertinent history and exam findings, with the author of this note . I have reviewed the price elements of all parts of the encounter with the nurse practitioner/resident. I agree with the assessment, plan and orders as documented by the above health care provider with the following addendum Plan- Continue IV antibiotics Will need TPN Arrange for transfer to [facility] More than 50% of the time was spent taking care of this patient in addition to the nurse practitioner time. That also included history taking follow-up physical examination and review of system. NGT found out at bedside as per pt she was not aware it was out. Informed primary. Tried to encourage for reinsertion of NGT, however pt strongly refuse, stated she was very uncomfortable with it. RN reported attempted ngt tube placement but patient did not tolerate. I came to bedside. I discussed with patient the importance of Ngt placement. She stated she would only try again if she was knocked out. I offered iv pain medication and iv anxiety medication. Patient refused. Reinforced the importance of attempting ngt placement. Patient refused. No nausea at this time. Pain controlled. Approximately 8;30 patient agreed to have ngt placed with ativan and cetacaine throat spray. Ngt placed without issue. Flor Halye DO General Surgery, PGY-4 Patient quickly did not tolerate NG tube placement and requested RN to stop NG placement. Gen/Surg and IM were notified. Images from the original note were not included. [facility] Office: [phone] Marco Delarosa DO, Dominic Gonzalez DO, Clifton Blanc DO, rFoylan Snowden, DO, Paula Jensen MD, Radha Greer MD, Nitish Parra MD, Maya Hernández MD, Porfirio García MD, Norma Smith MD, Tanya Mercado MD, Eloy Alves DO, Heidi Roche MD, Arthur Schroeder MD, Jose Manuel Delarosa DO, Shikha Pastrana MD, Obed Lilly DO, Rosangela Koehler MD, Alysa De Santiago MD, Dianne Agudelo MD, Judith Nicole MD, London Morales MD, Gamal Granger MD, Abby Salgado MD, Nereyda Lucas MD, Dru Shannon MD, Shahid Reddy MD, Ashley Schaffer DO, Cruzito Holloway MD, Eloy Valentin MD, Tony Valentin MD, lAix Acosta, BROACH TROUBLE SHOOTER, Shefali Hills BROACH TROUBLE SHOOTER, Ashley Baker, BROACH TROUBLE SHOOTER, Muna Brandon, DNP, Neida Mars, BROACH TROUBLE SHOOTER, Jigna De Dios, BROACH TROUBLE SHOOTER, Angelina Peguero, BROACH TROUBLE SHOOTER, Adwoa eLi, BROACH TROUBLE SHOOTER, Carmen Wray, PA-C, Kathy Apple PA-C, Jaz Castaneda, BROACH TROUBLE SHOOTER, Robert Huertas, BROACH TROUBLE SHOOTER, Vanessa Saleh, BROACH TROUBLE SHOOTER, Philly Mcgarry, BROACH TROUBLE SHOOTER, Josefina Higgins, BROACH TROUBLE SHOOTER, Chanel Mccullough, AIRBRUSH ARTIST TECHNICAL, Ghassan Schwartz BROACH TROUBLE SHOOTER, Lissett Root BROACH TROUBLE SHOOTER, Lu Cooley, BROACH TROUBLE SHOOTER [facility] IN-PATIENT SERVICE [facility] Progress Note 07/21/2024 5:03 PM Name: Francine Hobson Acct: [id number] Room: 024-01 Day: 2 Admit Date: 07/19/2024 12:43 PM PCP: No primary care provider on file. Code Status: Full Code Subjective: Patient seen examined bedside today. Has not passed gas. No fevers. No nausea vomiting. Asking for something to eat. Did show some frustration with this morning regarding plan of care. Brief History: This is a 38-year-old female with a history of Crohn's disease who presents to the hospital for evaluation of small bowel obstruction as well as for management of abdominal abscess. CT scan showed pathologically dilated small bowel upstream from a long segment of small bowel stricture with wall thickening and perienteric inflammatory changes consistent with a partial obstruction. She also had moderate volume of free fluid in the pelvis in addition to several fluid collection Medications: Allergies: Allergies Allergen Reactions Gluten Motrin [Ibuprofen] Nsaids Milk (Cow) Diarrhea Current Meds: Scheduled Meds: piperacillin-tazobactam 3,375 mg IntraVENous Q8H citalopram 40 mg Oral Daily sodium chloride flush 5-40 mL IntraVENous 2 times per day pantoprazole (PROTONIX) 40 mg in sodium chloride (PF) 0.9 % 10 mL injection 40 mg IntraVENous Daily enoxaparin 40 mg SubCUTAneous Daily Continuous Infusions: sodium chloride lactated ringers 125 mL/hr (07/21/24 0959) PRN Meds: hydrOXYzine HCl, sodium chloride flush, sodium chloride, potassium chloride OR potassium alternative oral replacement OR potassium chloride, ondansetron OR ondansetron, acetaminophen OR acetaminophen, melatonin, HYDROmorphone Data: Vitals: BP 105/69 Pulse 67 Temp 97.5 F (36.4 C) (Oral) Resp 18 Ht 1.702 m (5' 7.01 ) Wt 53.7 kg (118 lb 6.4 oz) LMP 07/04/2024 (Approximate) SpO2 100% BMI 18.54 kg/m Temp (24hrs), Av.3 F (36.8 C), Min:97.5 F (36.4 C), Max:99.1 F (37.3 C) No results for input(s): POCGLU in the last 72 hours. I/O (24Hr): No intake or output data in the 24 hours ending 07/21/24 1705 Labs: Hematology: Recent Labs 07/19/24 1309 07/19/24 1848 07/20/24 0615 07/21/24 0323 WBC 8.8 -- 4.9 -- RBC 5.08 -- 3.93* -- HGB 14.1 -- 10.9* -- HCT 42.3 -- 33.5* -- MCV 83.3 -- 85.2 -- MCH 27.8 -- 27.7 -- MCHC 33.3 -- 32.5 -- RDW 16.0* -- 15.9* -- PLT 384 -- 223 -- MPV 9.7 -- 9.6 -- SEDRATE -- 15 14 24* CRP -- 30.2* 39.2* 47.1* Chemistry: Recent Labs 07/19/24 1309 07/19/24 1950 07/20/24 0615 07/20/24 0947 07/21/24 0323 07/21/24 0927 07/21/24 1513 NA 137 -- 138 -- -- -- -- K 3.5* -- 3.1* -- -- -- -- CL 98 -- 103 -- -- -- -- CO2 26 -- 25 -- -- -- -- GLUCOSE 104* -- 72* -- -- -- -- BUN 6 -- 4* -- -- -- -- CREATININE 0.5* -- 0.4* -- -- -- -- MG -- -- 1.7 -- -- -- -- ANIONGAP 13 -- 10 -- -- -- -- LABGLOM >90 -- >90 -- -- -- -- CALCIUM 9.5 -- 8.0* -- -- -- -- LACTACIDWB -- < > -- < > 0.8 0.8 0.7 < > = values in this interval not displayed. Recent Labs 07/19/24 1309 AST 19 ALT 9* ALKPHOS 94 BILITOT 0.3 LIPASE 17 ABG:No results found for: POCPH , PHART , PH , POCPCO2 , VLP9RDJ , PCO2 , POCPO2 , PO2ART , PO2 , POCHCO3 , IHN0CFB , HCO3 , NBEA , PBEA , BEART , BE , THGBART , THB , KIC5QLQ , LIQK4XCY , L2GFZMXK , O2SAT , FIO2 Lab Results Component Value Date/Time SPECIAL Site: Body Fluid 05/03/2024 06:05 PM Lab Results Component Value Date/Time CULTURE POSITIVE Fluid Culture 05/03/2024 06:05 PM CULTURE 05/03/2024 06:05 PM DIRECT GRAM STAIN FROM BOTTLE: GRAM POSITIVE COCCI IN CHAINS CULTURE (A) 05/03/2024 06:05 PM VIRIDANS STREPTOCOCCUS GROUP Identified as : STREPTOCOCCUS ANGINOSUS Identification by MALDI-TOF CULTURE 05/03/2024 06:05 PM (NOTE) Direct Gram Stain from bottle result called to and read back by:WAQAS De Guzman 05/04/24 2450 Radiology: XR ABDOMEN (KUB) (SINGLE AP VIEW) Result Date: 07/20/2024 Dilated small bowel loops seen in left upper quadrant suggest ileus or partial obstruction. Contrast seen throughout the colon excluding complete obstruction. CT ABDOMEN PELVIS W IV CONTRAST Additional Contrast? Oral Result Date: 07/19/2024 Pathologically dilated small bowel upstream from a long segment small bowel stricture with wall thickening and perienteric inflammatory change. Findings consistent with partial obstruction There are several interloop fluid collections as described likely representing abscesses. Moderate volume of free fluid also noted in the pelvis. Physical Examination: General appearance: alert, cooperative and ill appearing . She is uncomfortable. Mental Status: oriented to person, place and time and normal affect Lungs: clear to auscultation bilaterally, normal effort Heart: regular rate and rhythm, no murmur Abdomen: Soft, +tender to palpation throughout nonperitoneal on distended surgical scars noted Extremities: no edema, redness, tenderness in the calves Skin: no gross lesions, rashes, induration Assessment: Hospital Problems Last Modified POA * (Principal) Crohn's colitis, unspecified complication (HCC) 07/19/2024 Yes Partial intestinal obstruction (HCC) 07/20/2024 Yes Crohn's disease of colon with complication (HCC) 07/19/2024 Yes Generalized abdominal pain 07/19/2024 Yes Nausea and vomiting 07/20/2024 Yes Plan: Abdominal pain likely due to intraabdominal abscess SBO in the setting of stricture Hx of Crohn's disease. -CT scan reviewed -Hold off on steroids now given intra-abdominal infection -NPO, IVF - On zosyn, ID assisting. Seems abscess not accessible by IR, with plan for antibiotics. Will discuss with ID. - Ok with NGT. Discussed with nursing staff- message sent out to General surgery. -d/w colorectal surgery who recommend transfer to [facility]. Will reach out to patients GI Dr. Rich as he is coming tomorrow. If he deems patient need, transfer will initiate this. - Await General surgery evaluation. 2. Malnutrition -Back Tender Pulp Drier consulted 3. Anxiety - Continue home Cesiliaexa Eloy Valentin MD 07/21/2024 5:03 PM [facility]'s Gastroenterology Progress Note Francine Hobson is a 38 y.o. female patient. Hospitalization Day:2 Chief consult reason: History of Crohn's/abscesses Severe abdominal pain Partial obstruction on scan, abscesses Patient of Dr. Oconnor's Subjective: Patient seen and examined, no acute events overnight Patient still refusing NG tube Still having significant abdominal pain Receiving antibiotics Cipro and ice chips VITALS: BP 105/69 Pulse 67 Temp 97.5 F (36.4 C) (Oral) Resp 18 Ht 1.702 m (5' 7 ) Wt 53.7 kg (118 lb 6.4 oz) LMP 07/04/2024 (Approximate) SpO2 100% BMI 18.54 kg/m TEMPERATURE: Current - Temp: 97.5 F (36.4 C); Max - Temp Av.2 F (36.8 C) Min: 97.5 F (36.4 C) Max: 99.1 F (37.3 C) Physical Assessment: General appearance: alert, cooperative and no distress Mental Status: oriented to person, place and time and normal affect Lungs: clear to auscultation bilaterally, normal effort Heart: regular rate and rhythm, no murmur Abdomen: soft, Very tender, nondistended, normal bowel sounds, no masses, hepatomegaly, splenomegaly Extremities: no edema, redness, tenderness in the calves Skin: no gross lesions, rashes, induration Data Review: Labs and Imaging: CBC: Recent Labs 07/19/24 1309 07/20/24 0615 WBC 8.8 4.9 HGB 14.1 10.9* MCV 83.3 85.2 RDW 16.0* 15.9* PLT 384 223 ANEMIA STUDIES: Recent Labs 07/20/24 0615 TIBC 177* FERRITIN 164* BMP: Recent Labs 07/19/24 1309 07/20/24 0615 NA 137 138 K 3.5* 3.1* CL 98 103 CO2 26 25 BUN 6 4* CREATININE 0.5* 0.4* GLUCOSE 104* 72* CALCIUM 9.5 8.0* MG -- 1.7 LFTS: Recent Labs 07/19/24 1309 ALKPHOS 94 ALT 9* AST 19 BILITOT 0.3 Other pertinent labs: Gastroenterology impression : Stricturing Crohn's disease with imaging suggestive of multiple abscesses/fluid collections -Patient has been dealing with abscesses for a while, been on multiple antibiotics, now presents with worse abdominal pain, imaging suggestive of fluid collections and abscesses again SBO due to stricture Plan: Recommend patient be transferred to tertiary center that can accommodate with IBD physicians/surgeons as Dr. Maguire had previously instructed pt OK for NGT from GI perspective At this time unable to initiate steroids due to abscesses and small bowel obstruction Diet per surgery Supportive care per primary Antibiotics per infectious disease Will follow This plan was formulated in collaboration with MD Gabriel Thank you for allowing me to participate in the care of your patient. Please feel free to contact me with any questions or concerns. [facility] Gastroenter[facility] Leroy De La Vega, SHOULDER JOINER - BROACH TROUBLE SHOOTER [phone] 07/21/2024 12:47 PM Estimated time of 20 mins reviewing chart, assessing patient and formulating plan of care This note was created with the assistance of a speech-recognition program. Although the intention is to generate a document that actually reflects the content of the visit, no guarantees can be provided that every mistake has been identified and corrected by editing. Attending Physician Statement I have discussed the care of Francine Hobson and I have examined the patient myselft and taken ros and hpi , including pertinent history and exam findings, with the author of this note . I have reviewed the price elements of all parts of the encounter with the nurse practitioner/resident. I agree with the assessment, plan and orders as documented by the above health care provider More than 50% of the time was spent taking care of this patient in addition to the nurse practitioner time. That also included history taking follow-up physical examination and review of system. Dr. Maguire who is the primary pump assembler for this patient will be seeing her tomorrow, ID recommended antibiotics for which we will hold off on steroid, although again the CAT scan is not showing abscesses this time and the patient had no fever or no white count, but Dr. Maguire is more familiar with this patient and will evaluate her tomorrow Electronically signed by Elizabeth Marcelo MD General Surgery: Daily Progress Note HOD 2 PATIENT NAME: Francine Hobson TODAY'S DATE: 07/21/2024, 10:16 AM CC: My belly hurts SUBJECTIVE: Pt seen and examined at bedside. She has refused NG tube due to hesitation as well as history of nasal trauma. Patient this morning denies nausea, vomiting, diarrhea. Says her last bowel movement was last night which was nonbloody. Patient is currently NPO. Imaging reviewed with team, and fluid collection seems unlikely to be relieved by IR drainage. Primary team, gastroenterology team, and our colorectal service recommend evaluation by [facility]. Patient is afebrile with normal vital signs. Every 6 lactates have continued to be normal. CRP 47.1. White count yesterday was normal. Patient on IV Zosyn. OBJECTIVE: VITALS: BP 105/69 Pulse 67 Temp 97.5 F (36.4 C) (Oral) Resp 18 Ht 1.702 m (5' 7 ) Wt 53.7 kg (118 lb 6.4 oz) LMP 07/04/2024 (Approximate) SpO2 100% BMI 18.54 kg/m INTAKE/OUTPUT: No intake or output data in the 24 hours ending 07/21/24 1016 PHYSICAL EXAM: General Appearance: awake, alert, oriented, in no acute distress HEENT: Normocephalic, atraumatic, Heart: Heart regular rate and rhythm Lungs: Breathing unlabored Abdomen: Soft, tenderness and guarding to palpation over all 4 quadrants, no signs of peritonitis Data: {LABS: Recent Results (from the past 24 hour(s)) Lactic Acid Collection Time: 07/20/24 8:40 PM Result Value Ref Range Lactic Acid, Whole Blood 0.7 0.7 - 2.1 mmol/L Lactic Acid Collection Time: 07/21/24 3:23 AM Result Value Ref Range Lactic Acid, Whole Blood 0.8 0.7 - 2.1 mmol/L Sedimentation Rate Collection Time: 07/21/24 3:23 AM Result Value Ref Range Sed Rate, Automated 24 (H) 0 - 20 mm/Hr C-Reactive Protein Collection Time: 07/21/24 3:23 AM Result Value Ref Range CRP 47.1 (H) 0.0 - 5.0 mg/L Lactic Acid Collection Time: 07/21/24 9:27 AM Result Value Ref Range Lactic Acid, Whole Blood 0.8 0.7 - 2.1 mmol/L Lactic Acid Collection Time: 07/21/24 3:13 PM Result Value Ref Range Lactic Acid, Whole Blood 0.7 0.7 - 2.1 mmol/L Radiology Review: XR ABDOMEN (KUB) (SINGLE AP VIEW) Result Date: 07/20/2024 Dilated small bowel loops seen in left upper quadrant suggest ileus or partial obstruction. Contrast seen throughout the colon excluding complete obstruction. CT ABDOMEN PELVIS W IV CONTRAST Additional Contrast? Oral Result Date: 07/19/2024 Pathologically dilated small bowel upstream from a long segment small bowel stricture with wall thickening and perienteric inflammatory change. Findings consistent with partial obstruction There are several interloop fluid collections as described likely representing abscesses. Moderate volume of free fluid also noted in the pelvis. ASSESSMENT: Active Hospital Problems Diagnosis Date Noted Nausea and vomiting [R11.2] 07/20/2024 Crohn's colitis, unspecified complication (HCC) [K50.119] 07/19/2024 Generalized abdominal pain [R10.84] 05/02/2024 Partial intestinal obstruction (HCC) [K56.600] 01/26/2024 Crohn's disease of colon with complication (HCC) [K50.119] 06/04/2020 38 yo female with hx Crohn's presents with small bowel obstruction Plan: Continue medical mgmt and supportive care per primary Recommend NG tube for bowel decompression. Pt currently refusing Continue NPO with IVF Recommend K>4, Mag >2 Trend lactic acid White count normal as of 07/20. Will obtain CBC this evening. Continue IV Zosyn GI consult, pt will need medical management of Crohn's disease Colorectal surgery not planning surgical intervention on this patient's small bowel. Recommend evaluation by general surgery service at [facility]. This has been discussed with the patient's primary team. I Dr. Sterling saw and examined the patient. I have edited the above and agree with the above. Hemant Katz Colorectal Surgery Images from the original note were not included. [facility] - Infectious diseases evaluation admission date 07/19/2024 reason for consultation: Intra-abdominal infection Impression : Current: Interloop multiple abscess on CT 07/19/24 Did have 05/01/24 multiloculated abscesses - IR - strep anginosus - no drain left in place Treated w augmentin then cipro and flagyl outpt till 07/20/24 CRP elevated 47 Currently partial small bowel obstruction Crohn's Disease 06/05/2024 colonscopy biopsy of rectum moderate to sever active ileitis with erosion and ulceration PSHx: Ileo-cecal resection 2012 Discussion / summary of stay / plan of care/ Recommendations: HENCE: IR - abscess not accessible Disc w IR -all are much better in size compared to April CTAP lft small fluid collection w an ovarian cyst- and 3 smaller / Improved abscesses., largest 2.5 cm on the right pelvis above the uterus, interloop- has flare from the IBD- HAS some reactive fluid in the anterior pelvic from the IBD No bowel fistula seen on CTAP Gen surg recommending NPO, NG placement for decompression due to small bowel obstruction but she declined it - Plan for [facility]? antibiotics Recommend Zosyn here and ultimately iv ertapenem at home/ picc x 28 days - see me in a month w CTAP Infection Control Recommendations [place] Precautions Contact Isolation Antimicrobial Stewardship Recommendations Simplification of therapy Targeted therapy History of Present Illness: Initial history: Francine Hobson is a 38 y.o.-year-old female with PMHx of chron's disease with recurent perirectal abscess presenting with sudden abdominal pain, nausea, and vomitting. She has been in a persistent chron's flair since hospital discharge 05/2024 after treatment for a perirectal abscess. She underwent aspiration and drainage which was cultured as Strep anginosus, received zosyn 8 days and completed augmentin 875 po bid for 2 weeks outpatient per consultation with Dr. Scanlon. She subsequently followed up with Dr. Maguire who prescribed 2 months course of cipro and flagy completed one week ago. She has utilized medications for symptoms management but no anti-inflammatory or biologic therapy from concern of her rectal abscess. She is planning on consultation with the [facility] but has not done so yet. Her abd pain nausea and vomitting has worsened in the past week but suddenly 4 am 07/19 completed limited her function delaying ED presentation. She is tolerated PO intake with liquids, having liquid stools. She is a prior smoker. CT was obtained 07/19 demonstrating Pathologically dilated small bowel upstream from a long segment small bowel stricture with wall thickening and perienteric inflammatory change. Findings consistent with partial obstruction There are several interloop fluid collections as described likely representing abscesses. GI, Gen surg, and colorectal surgery were subsequently consulted for management. Infectious disease was consulted for guidance on antibiotic therapy given past treatment for intraabdominal infections Interval changes 07/21/2024 Patient Vitals for the past 8 hrs: Resp 07/21/24 0641 20 07/21/24 0239 20 Summary of relevant labs: Labs: WBC 4.9 Cr 0.4 CRP 39.2 LA 1 - 1.4 Micro: UA culture negative Procedures Cardiology Imaging: CT ABDOMEN PELVIS W IV CONTRAST Additional Contrast? Oral Result Date: 07/19/2024 There is pathologically dilated small bowel upstream from a long segment of small bowel mural thickening and extensive perienteric inflammation. There are multiple interloop fluid collections, for example, right mid pelvis image 131/2 measuring 2.5 x 1.6 cm. Left paracentral pelvis on the same image measuring 1.6 x 1.1 cm. Enteric suture line in the right lower quadrant. Moderate volume of unorganized free fluid more anteriorly in the pelvis. CT AP 05/02/2024 Dilated proximal small bowel loops containing contrast with long segment narrowing involving a loop of ileum seen in the mid abdomen with circumferential wall thickening consistent with active inflammation. This is partially surrounded by the multiloculated abscess seen in the right lower abdomen measuring 7.1 by 7.5 cm on image 123. This is contiguous with 2 additional large abscesses seen in the right adnexa measuring 6.3 x 5.4 cm and in the upper pelvis in the midline measuring 5.3 x 4.8 cm. Overall similar to recent prior examination I have personally reviewed the past medical history, past surgical history, medications, social history, and family history, and I haveupdated the database accordingly. Allergies: Gluten, Motrin [ibuprofen], Nsaids, and Milk (cow) Review of Systems: Review of Systems Constitutional: Positive for appetite change. Negative for chills, fatigue and fever. HENT: Negative for congestion. Eyes: Negative for photophobia, pain and redness. Respiratory: Negative for apnea. Cardiovascular: Negative for chest pain. Gastrointestinal: Positive for abdominal distention, abdominal pain and rectal pain. Negative for nausea and vomiting. Endocrine: Positive for heat intolerance. Negative for polyphagia and polyuria. Genitourinary: Negative for dysuria and urgency. Musculoskeletal: Negative for arthralgias. Skin: Negative for color change. Allergic/Immunologic: Negative for immunocompromised state. Neurological: Negative for dizziness. Hematological: Negative for adenopathy. Psychiatric/Behavioral: Negative for agitation. Physical Examination : Physical Exam Vitals reviewed. Constitutional: General: She is not in acute distress. Appearance: Normal appearance. She is not ill-appearing. HENT: Head: Normocephalic and atraumatic. Nose: Nose normal. No congestion. Eyes: General: No scleral icterus. Conjunctiva/sclera: Conjunctivae normal. Pupils: Pupils are equal, round, and reactive to light. Cardiovascular: Rate and Rhythm: Normal rate and regular rhythm. Heart sounds: No murmur heard. No gallop. Pulmonary: Effort: No respiratory distress. Breath sounds: No wheezing. Abdominal: General: Bowel sounds are normal. There is no distension. Tenderness: There is abdominal tenderness. Musculoskeletal: General: No swelling, tenderness, deformity or signs of injury. Cervical back: Neck supple. No rigidity. Skin: Coloration: Skin is not jaundiced. Findings: No bruising. Neurological: Mental Status: She is alert and oriented to person, place, and time. Cranial Nerves: No cranial nerve deficit. Psychiatric: Mood and Affect: Mood normal. Thought Content: Thought content normal. Past Medical History: Past Medical History: Diagnosis Date Crohn disease (HCC) Past Surgical History: Past Surgical History: Procedure Laterality Date BOWEL RESECTION SECTION COLONOSCOPY N/A 06/05/2024 COLONOSCOPY BIOPSY performed by Maru Maguire MD at [facility] ENDO CT ABSCESS DRAINAGE 05/03/2024 CT ABSCESS DRAIN SUBCUTANEOUS 05/03/2024 Jose Manuel Torre MD [facility] CT SCAN TONSILLECTOMY AND ADENOIDECTOMY TUMOR REMOVAL Left left shoulder, benign WISDOM TOOTH EXTRACTION Medications: piperacillin-tazobactam 3,375 mg IntraVENous Q8H citalopram 40 mg Oral Daily sodium chloride flush 5-40 mL IntraVENous 2 times per day pantoprazole (PROTONIX) 40 mg in sodium chloride (PF) 0.9 % 10 mL injection 40 mg IntraVENous Daily enoxaparin 40 mg SubCUTAneous Daily Social History: Social History Socioeconomic History Marital status: Single Spouse name: Not on file Number of children: Not on file Years of education: Not on file Highest education level: Not on file Occupational History Not on file Tobacco Use Smoking status: Former Types: Cigarettes Smokeless tobacco: Never Vaping Use Vaping status: Every Day Substances: Nicotine Substance and Sexual Activity Alcohol use: Not Currently Comment: occass. Drug use: Not Currently Types: Marijuana ([place]) Comment: occassional Sexual activity: Yes Partners: Male Other Topics Concern Not on file Social History Narrative Not on file Social Determinants of Health Financial Resource Strain: Low Risk (11/24/2022) Received from [facility] Overall Financial Resource Strain (CARDIA) Difficulty of Paying Living Expenses: Not hard at all Food Insecurity: No Food Insecurity (07/20/2024) Hunger Vital Sign Worried About Running Out of Food in the Last Year: Never true Ran Out of Food in the Last Year: Never true Transportation Needs: No Transportation Needs (07/20/2024) PRAPARE - Transportation Lack of Transportation (Medical): No Lack of Transportation (Non-Medical): No Physical Activity: Not on file Stress: Not on file Social Connections: Unknown (06/03/2021) Received from [facility] Social Connections Frequency of Communication with Friends and Family: Not asked Frequency of Social Gatherings with Friends and Family: Not asked Intimate Partner Violence: Unknown (06/03/2021) Received from [facility] Intimate Partner Violence Fear of Current or Ex-Partner: Not asked Emotionally Abused: Not asked Physically Abused: Not asked Sexually Abused: Not asked Housing Stability: Low Risk (07/20/2024) Housing Stability Vital Sign Unable to Pay for Housing in the Last Year: No Number of Times Moved in the Last Year: 0 Homeless in the Last Year: No Family History: History reviewed. No pertinent family history. Medical Decision Making: I have independently reviewed/ordered the following labs: CBC with Differential: Recent Labs 07/19/24 1309 07/20/24 0615 WBC 8.8 4.9 HGB 14.1 10.9* HCT 42.3 33.5* PLT 384 223 LYMPHOPCT 18* 20* MONOPCT 8 11 EOSPCT 0* 2 BMP: Recent Labs 07/19/24 1309 07/20/24 0615 NA 137 138 K 3.5* 3.1* CL 98 103 CO2 26 25 BUN 6 4* CREATININE 0.5* 0.4* MG -- 1.7 Hepatic Function Panel: Recent Labs 07/19/24 1309 BILITOT 0.3 ALKPHOS 94 ALT 9* AST 19 No results for input(s): RPR in the last 72 hours. No results for input(s): HIV in the last 72 hours. No results for input(s): BC in the last 72 hours. Lab Results Component Value Date/Time CREATININE 0.4 07/20/2024 06:15 AM GLUCOSE 72 07/20/2024 06:15 AM Detailed results: Thank you for allowing us to participate in the care of this patient.Please call with questions. This note is created with the assistance of a speech recognition program. While intending to generate adocument that actually reflects the content of the visit, the document can still have some errors including those of syntax and sound a like substitutions which may escape proof reading. It such instances, actual meaningcan be extrapolated by contextual diversion. Manjit Grover MD Office: [facility] / office [phone] ED to inpatient nurses report Chief Complaint: Chief Complaint Patient presents with Abdominal Pain Vomiting Present to ED from: home MOA: LOC: alert and orientated to name, place, date Mobility: Independent Oxygen Baseline: ra Current needs required: n/A Pending ED orders: none Present condition: Why did the patient come to the ED? N/v What is the plan? Consults in place Any procedures or intervention occur? none Any safety concerns?? Mental Status: Level of Consciousness: Alert (0) Psych Assessment: Psychosocial Psychosocial (WDL): Exceptions to WDL Patient Behaviors: Anxious Vital signs Vitals: 07/19/24201007/19/24 2315 07/20/24 0830 07/20/24 1345 BP: 123/72 (!) 101/52 (!) 99/53 (!) 110/49 Pulse: 76 67 66 (!) 101 Resp: 16 16 17 Temp: 98.9 F (37.2 C) 98.3 F (36.8 C) 98.2 F (36.8 C) TempSrc: Oral Oral Oral SpO2: 98% 96% 97% 100% Weight: Vitals: Patient Vitals for the past 24 hrs: BP Temp Temp src Pulse Resp SpO2 07/20/24 1345 (!) 110/49 98.2 F (36.8 C) Oral (!) 101 17 100 % 07/20/24 0830 (!) 99/53 98.3 F (36.8 C) Oral 66 -- 97 % 07/19/24 2315 (!) 101/52 98.9 F (37.2 C) Oral 67 16 96 % 07/19/242010 123/72 -- -- 76 16 98 % 07/19/24 1659 -- -- -- 83 16 100 % Visit Vitals BP (!) 110/49 Pulse (!) 101 Temp 98.2 F (36.8 C) (Oral) Resp 17 Wt 54 kg (119 lb) SpO2 100% BMI 18.63 kg/m LDAs: Peripheral IV 07/19/24 Right Antecubital (Active) Site Assessment Clean, dry & intact 07/20/241201 Line Status Infusing 07/20/241201 Line Care Connections checked and tightened 07/20/241201 Phlebitis Assessment No symptoms 07/20/241201 Infiltration Assessment 0 07/20/241201 Alcohol Cap Used Yes 07/20/241201 Dressing Status Clean, dry & intact 07/20/241201 Dressing Type Transparent 07/20/241201 Ambulatory Status: No data recorded Diagnosis: DISPOSITION Admitted 07/19/2024 08:47:27 PM Final diagnoses: Nausea and vomiting, unspecified vomiting type Abdominal pain, epigastric Partial intestinal obstruction, unspecified cause (HCC) Consults: IP CONSULT TO GI IP CONSULT TO GENERAL SURGERY IP CONSULT TO HOSPITALIST IP CONSULT TO DIETITIAN IP CONSULT TO INFECTIOUS DISEASES Treatment Team: Treatment Team: Eloy Alves DO Daboul, Isam, MD Waterhouse, Shirley Ann, DIONISIO - Kelly Colon, Manjit Graham MD Pratt, Susan, RN Alo, Abed E, MD Treatment: ED Course as of 07/20/24 1554 WedJul 19, [address] ABDOMEN PELVIS W IV CONTRAST Additional Contrast? Oral Pathologically dilated small bowel upstream from a long segment small bowel stricture with wall thickening and perienteric inflammatory change. Findings consistent with partial obstruction There are several interloop fluid collections as described likely representing abscesses. Moderate volume of free fluid also noted in the pelvis. [GP] ED Course User Index [GP] Fransisco Aragon DO Skin Assessment: Pain Score: Pain Assessment Pain Assessment: None - Denies Pain Pain Level: 9 Patient's Stated Pain Goal: 0 - No pain Pain Location: Abdomen Pain Orientation: Right Pain Descriptors: Aching SOCIAL HISTORY Social History Socioeconomic History Marital status: Single Spouse name: None Number of children: None Years of education: None Highest education level: None Tobacco Use Smoking status: Former Types: Cigarettes Smokeless tobacco: Never Vaping Use Vaping status: Every Day Substances: Nicotine Substance and Sexual Activity Alcohol use: Not Currently Comment: occass. Drug use: Not Currently Types: Marijuana ([place]) Comment: occassional Sexual activity: Yes Partners: Male Social Determinants of Health Financial Resource Strain: Low Risk (11/24/2022) Received from [facility] Overall Financial Resource Strain (CARDIA) Difficulty of Paying Living Expenses: Not hard at all Food Insecurity: No Food Insecurity (05/03/2024) Hunger Vital Sign Worried About Running Out of Food in the Last Year: Never true Ran Out of Food in the Last Year: Never true Transportation Needs: No Transportation Needs (05/03/2024) PRAPARE - Transportation Lack of Transportation (Medical): No Lack of Transportation (Non-Medical): No Social Connections: Unknown (06/03/2021) Received from [facility] Social Connections Frequency of Communication with Friends and Family: Not asked Frequency of Social Gatherings with Friends and Family: Not asked Intimate Partner Violence: Unknown (06/03/2021) Received from [facility] Intimate Partner Violence Fear of Current or Ex-Partner: Not asked Emotionally Abused: Not asked Physically Abused: Not asked Sexually Abused: Not asked Housing Stability: Low Risk (05/03/2024) Housing Stability Vital Sign Unable to Pay for Housing in the Last Year: No Number of Times Moved in the Last Year: 0 Homeless in the Last Year: No FAMILY HISTORY History reviewed. No pertinent family history. ALLERGIES Gluten, Motrin [ibuprofen], Nsaids, and Milk (cow) CURRENT MEDICATIONS Previous Medications AMITRIPTYLINE (ELAVIL) 25 MG TABLET Take 1 tablet by mouth nightly CHOLECALCIFEROL (VITAMIN D) 25 MCG TABS Take 1 tablet by mouth daily CIPROFLOXACIN (CIPRO PO) Take 1 tablet by mouth 2 times daily CITALOPRAM (CELEXA) 40 MG TABLET Take 1 tablet by mouth daily DICYCLOMINE (BENTYL) 10 MG CAPSULE Take 1 capsule by mouth 3 times daily ONDANSETRON (ZOFRAN) 4 MG TABLET Take 1 tablet by mouth every 12 hours as needed for Nausea or Vomiting ONDANSETRON (ZOFRAN-ODT) 4 MG DISINTEGRATING TABLET Take 1 tablet by mouth 3 times daily as needed for Nausea or Vomiting PANTOPRAZOLE (PROTONIX) 40 MG TABLET Take 1 tablet by mouth every morning (before breakfast) PROMETHAZINE (PHENERGAN) 25 MG TABLET Take 1 tablet by mouth every 6 hours as needed UPADACITINIB ER (RINVOQ) 30 MG TB24 TAKE 1 TABLET BY MOUTH EVERY DAY Orders Placed This Encounter Medications DISCONTD: HYDROmorphone (DILAUDID) injection 0.5 mg HYDROmorphone (DILAUDID) injection 1 mg ondansetron (ZOFRAN) injection 4 mg HYDROmorphone (DILAUDID) injection 1 mg potassium bicarb-citric acid (EFFER-K) effervescent tablet 20 mEq sodium chloride 0.9 % bolus 1,000 mL iopamidol (ISOVUE-370) 76 % injection 75 mL barium sulfate (READI-CAT 2) 2 % suspension 450 mL HYDROmorphone (DILAUDID) injection 0.5 mg ondansetron (ZOFRAN) injection 4 mg DISCONTD: amitriptyline (ELAVIL) tablet 25 mg citalopram (CELEXA) tablet 40 mg DISCONTD: dicyclomine (BENTYL) capsule 10 mg DISCONTD: 0.9 % sodium chloride infusion sodium chloride flush 0.9 % injection 5-40 mL sodium chloride flush 0.9 % injection 5-40 mL 0.9 % sodium chloride infusion OR Linked Order Group potassium chloride (KLOR-CON M) extended release tablet 40 mEq potassium bicarb-citric acid (EFFER-K) effervescent tablet 40 mEq potassium chloride 10 mEq/100 mL IVPB (Peripheral Line) OR Linked Order Group ondansetron (ZOFRAN-ODT) disintegrating tablet 4 mg ondansetron (ZOFRAN) injection 4 mg OR Linked Order Group acetaminophen (TYLENOL) tablet 650 mg acetaminophen (TYLENOL) suppository 650 mg lactated ringers infusion melatonin tablet 5 mg HYDROmorphone (DILAUDID) injection 0.5 mg pantoprazole (PROTONIX) 40 mg in sodium chloride (PF) 0.9 % 10 mL injection enoxaparin (LOVENOX) injection 40 mg Order Specific Question: Indication of Use Answer: Treatment-DVT/PE magnesium sulfate 2000 mg in 50 mL IVPB premix piperacillin-tazobactam (ZOSYN) 3,375 mg in sodium chloride 0.9 % 50 mL IVPB (mini-bag) Order Specific Question: Antimicrobial Indications Answer: Intra-Abdominal Infection SURGICAL HISTORY Past Surgical History: Procedure Laterality Date BOWEL RESECTION SECTION COLONOSCOPY N/A 06/05/2024 COLONOSCOPY BIOPSY performed by Maru Maguire MD at [facility] ENDO CT ABSCESS DRAINAGE 05/03/2024 CT ABSCESS DRAIN SUBCUTANEOUS 05/03/2024 Jose Manuel Torre MD [facility] CT SCAN TONSILLECTOMY AND ADENOIDECTOMY TUMOR REMOVAL Left left shoulder, benign WISDOM TOOTH EXTRACTION PAST MEDICAL HISTORY Past Medical History: Diagnosis Date Crohn disease (HCC) Labs: Labs Reviewed CBC WITH AUTO DIFFERENTIAL - Abnormal; Notable for the following components: Result Value RDW 16.0 (*) Neutrophils % 74 (*) Lymphocytes % 18 (*) Eosinophils % 0 (*) All other components within normal limits COMPREHENSIVE METABOLIC PANEL - Abnormal; Notable for the following components: Potassium 3.5 (*) Glucose 104 (*) Creatinine 0.5 (*) ALT 9 (*) All other components within normal limits URINALYSIS WITH REFLEX TO CULTURE - Abnormal; Notable for the following components: Turbidity UA Cloudy (*) Ketones, Urine MODERATE (*) Urine Hgb TRACE (*) Protein, UA TRACE (*) All other components within normal limits C-REACTIVE PROTEIN - Abnormal; Notable for the following components: CRP 30.2 (*) All other components within normal limits C-REACTIVE PROTEIN - Abnormal; Notable for the following components: CRP 39.2 (*) All other components within normal limits BASIC METABOLIC PANEL W/ REFLEX TO MG FOR LOW K - Abnormal; Notable for the following components: Potassium 3.1 (*) Glucose 72 (*) BUN 4 (*) Creatinine 0.4 (*) Calcium 8.0 (*) All other components within normal limits CBC WITH AUTO DIFFERENTIAL - Abnormal; Notable for the following components: RBC 3.93 (*) Hemoglobin 10.9 (*) Hematocrit 33.5 (*) RDW 15.9 (*) Neutrophils % 67 (*) Lymphocytes % 20 (*) Lymphocytes Absolute 0.97 (*) All other components within normal limits FERRITIN - Abnormal; Notable for the following components: Ferritin 164 (*) All other components within normal limits IRON AND TIBC - Abnormal; Notable for the following components: Iron 35 (*) TIBC 177 (*) All other components within normal limits GASTROINTESTINAL PANEL, MOLECULAR HCG, SERUM, QUALITATIVE LIPASE MICROSCOPIC URINALYSIS SEDIMENTATION RATE SEDIMENTATION RATE LACTIC ACID LACTIC ACID MAGNESIUM CALPROTECTIN STOOL LACTIC ACID LACTIC ACID LACTIC ACID LACTIC ACID Images from the original note were not included. [facility] Office: [phone] Marco Delarosa DO, Dominic Gonzalez DO, Clifton Blanc DO, Froylan Snowden DO, Paula Jensen MD, Radha Greer MD, Nitish Parra MD, Maya Hernández MD, Porfirio García MD, Norma Smith MD, Tanya Mercado MD, Eloy Alves DO, Heidi Roche MD, Arthur Schroeder MD, Jose Manuel Delarosa DO, Shikha Pastrana MD, Obed Lilly DO, Rosangela Koehler MD, Alysa De Santiago MD, Dianne Agudelo MD, Judith Nicole MD, London Morales MD, Gamal Granger MD, Abby Salgado MD, Nereyda Lucas MD, Dru Shannon MD, Shahid Reddy MD, Ashley Schaffer DO, Cruzito Holloway MD, Eloy Valentin MD, Tony Valentin MD, Alix Acosta, [employer], Shefali Hills, [employer], Ashley Baker, [employer], Muna Brandon, [facility], Neida Mars, [employer], Jigna De Dios, [employer], Angelina Peguero, [employer], Adwoa Lei, [employer], Carmen Wray, PA-C, Kathy Apple, PAOliviaC, Jaz Castaneda, [employer], Robert Huertas, [employer], Vanessa Saleh, [employer], Philly Mcgarry, [facility], Josefina Higgins, [facility], Chanel Mccullough, [facility], Ghassan Schwartz, [employer], Lissett Root, [employer], Lu Cooley, [facility] IN-PATIENT SERVICE [facility] Progress Note 07/20/2024 8:51 AM Name: Francine Hobson Acct: [id number] Room: 36/36 IP Day: 1 Admit Date: 07/19/2024 12:43 PM PCP: No primary care provider on file. Code Status: Full Code Subjective: Patient seen examined bedside today. She does have some abdominal pain but denies any nausea vomiting. She has not had any flatus. She is afebrile. Has not had a bowel movement. On room air. Tells me she does not feel comfortable with NG tube unless her pump assembler is okay with it. Brief History: This is a 38-year-old female with a history of Crohn's disease who presents to the hospital for evaluation of small bowel obstruction as well as for management of abdominal abscess. CT scan showed pathologically dilated small bowel upstream from a long segment of small bowel stricture with wall thickening and perienteric inflammatory changes consistent with a partial obstruction. She also had moderate volume of free fluid in the pelvis in addition to several fluid collection Medications: Allergies: Allergies Allergen Reactions Gluten Motrin [Ibuprofen] Nsaids Milk (Cow) Diarrhea Current Meds: Scheduled Meds: magnesium sulfate 2,000 mg IntraVENous Once citalopram 40 mg Oral Daily sodium chloride flush 5-40 mL IntraVENous 2 times per day pantoprazole (PROTONIX) 40 mg in sodium chloride (PF) 0.9 % 10 mL injection 40 mg IntraVENous Daily enoxaparin 40 mg SubCUTAneous Daily Continuous Infusions: sodium chloride lactated ringers 125 mL/hr at 07/20/24 0655 PRN Meds: sodium chloride flush, sodium chloride, potassium chloride OR potassium alternative oral replacement OR potassium chloride, ondansetron OR ondansetron, acetaminophen OR acetaminophen, melatonin, HYDROmorphone Data: Vitals: BP (!) 99/53 Pulse 66 Temp 98.3 F (36.8 C) (Oral) Resp 16 Wt 54 kg (119 lb) LMP 07/04/2024 (Approximate) SpO2 97% BMI 18.63 kg/m Temp (24hrs), Av.2 F (36.8 C), Min:97.5 F (36.4 C), Max:98.9 F (37.2 C) No results for input(s): POCGLU in the last 72 hours. I/O (24Hr): No intake or output data in the 24 hours ending 07/20/24 0851 Labs: Hematology: Recent Labs 07/19/24 1309 07/19/24 1848 07/20/24 0615 WBC 8.8 -- 4.9 RBC 5.08 -- 3.93* HGB 14.1 -- 10.9* HCT 42.3 -- 33.5* MCV 83.3 -- 85.2 MCH 27.8 -- 27.7 MCHC 33.3 -- 32.5 RDW 16.0* -- 15.9* PLT 384 -- 223 MPV 9.7 -- 9.6 SEDRATE -- 15 -- CRP -- 30.2* 39.2* Chemistry: Recent Labs 07/19/24 1309 07/19/24 1950 07/20/24 0615 NA 137 -- 138 K 3.5* -- 3.1* CL 98 -- 103 CO2 26 -- 25 GLUCOSE 104* -- 72* BUN 6 -- 4* CREATININE 0.5* -- 0.4* MG -- -- 1.7 ANIONGAP 13 -- 10 LABGLOM >90 -- >90 CALCIUM 9.5 -- 8.0* LACTACIDWB -- 1.0 -- Recent Labs 07/19/24 1309 AST 19 ALT 9* ALKPHOS 94 BILITOT 0.3 LIPASE 17 ABG:No results found for: POCPH , PHART , PH , POCPCO2 , BHB2WXQ , PCO2 , POCPO2 , PO2ART , PO2 , POCHCO3 , YGL8SZB , HCO3 , NBEA , PBEA , BEART , BE , THGBART , THB , VXK0YQW , JQOS9VPG , F5LAMGBN , O2SAT , FIO2 Lab Results Component Value Date/Time SPECIAL Site: Body Fluid 05/03/2024 06:05 PM Lab Results Component Value Date/Time CULTURE POSITIVE Fluid Culture 05/03/2024 06:05 PM CULTURE 05/03/2024 06:05 PM DIRECT GRAM STAIN FROM BOTTLE: GRAM POSITIVE COCCI IN CHAINS CULTURE (A) 05/03/2024 06:05 PM VIRIDANS STREPTOCOCCUS GROUP Identified as : STREPTOCOCCUS ANGINOSUS Identification by MALDI-TOF CULTURE 05/03/2024 06:05 PM (NOTE) Direct Gram Stain from bottle result called to and read back by:WAQAS De Guzman 05/04/24 1750 Radiology: XR ABDOMEN (KUB) (SINGLE AP VIEW) Result Date: 07/20/2024 Dilated small bowel loops seen in left upper quadrant suggest ileus or partial obstruction. Contrast seen throughout the colon excluding complete obstruction. CT ABDOMEN PELVIS W IV CONTRAST Additional Contrast? Oral Result Date: 07/19/2024 Pathologically dilated small bowel upstream from a long segment small bowel stricture with wall thickening and perienteric inflammatory change. Findings consistent with partial obstruction There are several interloop fluid collections as described likely representing abscesses. Moderate volume of free fluid also noted in the pelvis. Physical Examination: General appearance: alert, cooperative and ill appearing . She is uncomfortable. Mental Status: oriented to person, place and time and normal affect Lungs: clear to auscultation bilaterally, normal effort Heart: regular rate and rhythm, no murmur Abdomen: Soft, tender to palpation throughout nonperitoneal on distended surgical scars noted Extremities: no edema, redness, tenderness in the calves Skin: no gross lesions, rashes, induration Assessment: Hospital Problems Last Modified POA * (Principal) Crohn's colitis, unspecified complication (HCC) 07/19/2024 Yes Partial small bowel obstruction (HCC) 07/19/2024 Yes Crohn's disease of colon with complication (HCC) 07/19/2024 Yes Generalized abdominal pain 07/19/2024 Yes Plan: Abdominal pain likely due to intraabdominal abscess, Small bowel obstruction in the setting of stricture and active Crohn's disease. CT scan shows dilated small bowel upstream from a long segment small bowel stricture with wall thickening and perienteric inflammatory changes along with several fluid collections likely representing intra-abdominal abscess. CT also showed moderate volume of free fluid in the pelvis Hold off on steroids now given intra-abdominal infection Continue bowel reset, IVF. Discussed with patient she is refusing NG tube. I did discuss reasoning behind NG tube along with risk associated with not getting. Add zosyn for abscess. I did discuss with gastroenterology who are okay with NG tube. Discussed case with trauma surgery, they will consult colorectal surgery Check potassium in the morning. 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 Sedation or General Anesthesia, Adult Care After Refer to this sheet in the next 24 hours. These instructions provide you with information on caring for yourself after your procedure. Your caregiver may also give you more specific instructions. Your treatment has been planned according to current medical practices, but problems sometimes occur. Call your caregiver if you have any problems or questions after your procedure. HOME CARE INSTRUCTIONS Do not participate in any activities that require you to be alert or coordinated. Do not: Drive. Swim. Ride a bicycle. Operate heavy machinery. Cook. Use power tools. Climb ladders. Work at heights. Take a bath. Do not drink alcohol. Do not make any important decisions or sign legal documents. Stay with an adult. The first meal following your procedure should be light and small. Avoid solid foods if you feel sick to your stomach (nauseous) or if you throw up (vomit). Drink enough fluids to keep your urine clear or pale yellow. Only take your usual medicines or new medicines if your caregiver approves them. Only take hzoo-qnh-rjhunma or prescription medicines for pain, discomfort, or fever as directed by your caregiver. Keep all follow-up appointments as directed by your caregiver. SEEK IMMEDIATE MEDICAL CARE IF: You are not feeling normal or behaving normally after 24 hours. You have persistent nausea and vomiting. You are unable to drink fluids or eat food. You have difficulty urinating. You have difficulty breathing or speaking. You have blue or hyde skin. There is difficulty waking or you cannot be woken up. You have heavy bleeding, redness, or a lot of swelling where the sedative or anesthesia entered your skin (intravenous site). You have a rash. MAKE SURE YOU: Understand these instructions. Will watch your condition. Will get help right away if you are not doing well or get worse. Document Released: 06/21/2006 Document Revised: 12/20/2012 Document Reviewed: 10/19/2012 [email or web address] Patient Information 2013 [employer]. Colonoscopy: What to Expect at Home Your Recovery After you have a colonoscopy, you will stay at the clinic for 1 to 2 hours until the medicines wear off. Then you can go home, but you will need to arrange for a ride. Your doctor will tell you when you can eat and do your other usual activities. Your doctor will talk to you about when you will need your next colonoscopy. The results of your test and your risk for colorectal cancer will help your doctor decide how often you need to be checked. After the test, you may be bloated or have gas pains. You may need to pass gas. If a biopsy was done or a polyp was removed, you may have streaks of blood in your stool (feces) for a few days. This care sheet gives you a general idea about how long it will take for you to recover. But each person recovers at a different pace. Follow the steps below to get better as quickly as possible. How can you care for yourself at home? Activity Rest as much as you need to after you go home. You should be able to go back to your usual activities the day after the test. Diet Follow your doctor s directions for eating. Drink plenty of fluids (unless your doctor has told you not to) to replace the fluids that were lost during the colon prep. Do not drink alcohol. Medicines If polyps were removed or a biopsy was done during the test, your doctor may tell you not to take aspirin or other anti-inflammatory medicines, such as ibuprofen (Advil, Motrin) and naproxen (Aleve), for a few days. Other instructions For your safety, you should not drive or operate machinery until the medicine effects are gone and you can think clearly. Your doctor may tell you not to drive or operate machinery until the day after your test. Do not sign legal documents or make major decisions until the medicine effects are gone and you can think clearly. The anesthesia medicine can make it hard for you to fully understand what you are agreeing to. Follow-up care is a price part of your treatment and safety. Be sure to make and go to all appointments, and call your doctor if you are having problems. It's also a good idea to know your test results and keep a list of the medicines you take. Call your Doctor if you have any of the following: Passing blood rectally or vomiting blood (it may be red or black). Persistent nausea or vomiting. Severe abdominal or chest pain, not relieved by passing gas. Fever of 100 or more, chills or excessive sweating. Redness or swelling at the IV site. If you experience shortness of breath or severe chest pain, call 911. Where can you learn more? Go to [email or web address] and sign in to your [employer] account. Enter E264 in the Search Health Information box to learn more about Colonoscopy: What to Expect at Home. If you do not have an account, please click on the Sign Up Now link. [employer]. Care instructions adapted under license by [employer]. This care instruction is for use with your licensed healthcare professional. If you have questions about a medical condition or this instruction, always ask your healthcare professional. [employer] disclaims any warranty or liability for your use of this information. Content Version: 9.9.471042; Last Revised: August 24, 2012 Call out patient scheduling for Abd CT scan at [phone] documented in this encounter [facility] 06-05-2024 History of Present illness Narrative Urine negative, results faxed to lab. documented in this encounter [facility] 05-22-2024 History of Present illness Narrative Pre-op Instructions For Out-Patient Endoscopy Surgery Medication Instructions: Please stop herbs and any supplements now (includes vitamins and minerals). Please contact your surgeon and prescribing physician for pre-op instructions for any blood thinners. Stop taking as directed If you have inhalers/aerosol treatments at home, please use them the morning of your surgery and bring the inhalers with you to the hospital. Please take the following medications the morning of your surgery with a sip of water: None Surgery Instructions: After midnight before surgery: Do not eat or drink anything, including water, mints, gum, and hard candy. You may brush your teeth without swallowing. No smoking, chewing tobacco, or street drugs. Please shower or bathe before surgery. Please do not wear any cologne, lotion, powder, jewelry, piercings, perfume, makeup, nail divehi, hair accessories, or hair spray on the day of surgery. Wear loose comfortable clothing. Leave your valuables at home but bring a payment source for any after-surgery prescriptions you plan to fill at [facility]. Bring a storage case for any glasses/contacts. An adult who is responsible for you MUST drive you home and should be with you for the first 24 hours after surgery. The Day of Surgery: Arrive at [facility] at the time directed by your surgeon and check in at the desk. If you have a living will or healthcare power of consumer attorney, please bring a copy. You will be taken to the pre-op holding area where you will be prepared for surgery. A physical assessment will be performed by a nurse practitioner or warehouse record clerk. Your IV will be started and you will meet your anesthesiologist. When you go to surgery, your family will be directed to the surgical waiting room, where the doctor should speak with them after your surgery. After surgery, you will be taken to the recovery area. When you are alert and stable, you will receive instructions and be prepared for discharge. Instructions reviewed, patient verbalizes understanding Colonoscopy 06/05/24 documented in this encounter [facility] 05-09-2024 Hospital course Narrative Discharge Summary Date: 05/09/2024 Patient Name: Francine Hobson Date of : 1985 Age: 38 y.o. Admit Date: 05/01/2024 Discharge Date: 05/09/2024 Discharge Condition: Stable Admission Diagnosis Generalized abdominal pain [R10.84];Intra-abdominal abscess (HCC) [K65.1];Crohn's disease of colon with abscess (HCC) [K50.114] Discharge Diagnosis Principal Problem: Intra-abdominal abscess (HCC) Active Problems: Crohn's disease with complication (HCC) Crohn's colitis, other complication (HCC) Partial small bowel obstruction (HCC) Depression, unspecified Generalized anxiety disorder with panic attacks Generalized abdominal pain Crohn's disease of colon with abscess (HCC) Pelvic abscess in female Abscess of intestine due to Crohn's disease (HCC) Bandemia Normocytic normochromic anemia Resolved Problems: * No resolved hospital problems. * Hospital Stay Narrative of Hospital Course: 8-year-old female past medical history of Crohn's disease, history of ileocecal resection, anxiety depression, vitamin D deficiency presents with abdominal pain. Concern for Crohn's with abscess. Colorectal surgery, GI, IR following patient. Underwent CT abdomen pelvis on 05/02/2024 No additional drainage from IR standpoint as the right lower quadrant is an ovarian follicle not an abscess Loculated abscesses are less than 3 cm which do not require drainage Steroids per GI Previous aspirate growing gram-positive cocci. Received Iv antibiotics followed by oral antibiotics for 2 weeks following culture sensitivities as per Infectious disease. Patient noted to have elevated calprotectin with concern for crohns flare. GI placed on steriods with plan for continuation of home meds. Patient overall improved with ongoing pain which she feels can be managed on oral at home. Long detailed discussion about risks, benefits and alternatives to her management were discussed. Plan Consultants: IP CONSULT TO GENERAL SURGERY IP CONSULT TO HOSPITALIST IP CONSULT TO GI IP CONSULT TO INTERVENTIONAL RADIOLOGY IP CONSULT TO VASCULAR ACCESS TEAM IP CONSULT TO INFECTIOUS DISEASES IP CONSULT TO INTERVENTIONAL RADIOLOGY Surgeries/procedures Performed: Treatments: Steroids and Antibiotics Discharge Plan/Disposition: Home Hospital/Incidental Findings Requiring Follow Up: Patient Instructions: Diet: Regular Diet Activity:Activity as Tolerated For number of days (if applicable): Other Instructions: Provider Follow-Up: No follow-ups on file. Significant Diagnostic Studies: Recent Labs: Admission on 05/01/2024 No results displayed because visit has over 200 results. Radiology last 7 days: CT ABDOMEN PELVIS WO CONTRAST Additional Contrast? Rectal Result Date: 05/06/2024 1. Stable small bowel and colonic inflammatory changes and adynamic ileus. No evidence of a bowel leak. 2. Stable to slightly improved multiloculated pelvic abscesses. CT ABSCESS DRAINAGE Result Date: 05/04/[address]-guided pelvic fluid collection aspiration using a left transgluteal approach. Pending Labs Order Current Status Calprotectin Stool Collected (05/07/24 1120) Gastrointestinal Panel, Molecular In process Culture, Body Fluid (with Gram Stain) Preliminary result Discharge Medications Current Discharge Medication List Current Discharge Medication List Current Discharge Medication List CONTINUE these medications which have NOT CHANGED !! Upadacitinib ER (RINVOQ) 30 MG TB24 Take 1 tablet by mouth daily Qty: 30 tablet Refills: 1 dicyclomine (BENTYL) 10 MG capsule Take 2 capsules by mouth 3 times daily as needed (for abdominal pain and spasms , before meals) Qty: 120 capsule Refills: 3 !! polyethylene glycol (MIRALAX) 17 GM/SCOOP powder Take per bowel prep instructions Qty: 238 g Refills: 0 bisacodyl 5 MG EC tablet Take as directed for bowel prep/colonoscopy Qty: 4 tablet Refills: 0 !! Upadacitinib ER 30 MG TB24 Take 1 tablet by mouth daily Qty: 30 tablet Refills: 1 !! polyethylene glycol (GLYCOLAX) 17 GM/SCOOP powder Dispense 4 Dulcolax tablets with this prescription. Use as directed by following your patient instructions given by your physician. Qty: 255 g Refills: 0 Cholecalciferol (VITAMIN D) 25 MCG TABS Take 1 tablet by mouth daily Qty: 60 tablet Refills: 0 Comments: Labeling may look different. 25 iws=1312 Units. Please double check dosages. omeprazole (PRILOSEC) 10 MG delayed release capsule Take 1 capsule by mouth daily citalopram (CELEXA) 40 MG tablet Take 1 tablet by mouth daily !! - Potential duplicate medications found. Please discuss with provider. Current Discharge Medication List Time Spent on Discharge: minutes were spent in patient examination, evaluation, counseling as well as medication reconciliation, prescriptions for required medications, discharge plan, and follow up. documented in this encounter [facility] 05-09-2024 Hospital Discharge instructions Hardy Gamez MD - 05/09/2024 4:53 PM EST You have been placed on oral antibiotics for 2 more weeks. We have started you on steriods for your crohns flare which is likely contributing. We have also written you a prescription for pain medication which needs to be used with caution as discussed in detail. You will need to follow up with infectious disease in office as well as your Assembler Caterpillar Spider, primary care doctor for transitional care monitoring and follow up labs. If you experience any new, worsening or unchanged symptoms. Please call or come to ER for further eval. Hardy Gamez MD - 05/09/2024 4:54 PM EST As tolerated Hardy Gamez MD - 05/09/2024 4:54 PM EST Good nutrition is important when healing from an illness, injury, or surgery. Follow any nutrition recommendations given to you during your hospital stay. If you were given an oral nutrition supplement while in the hospital, continue to take this supplement at home. You can take it with meals, in-between meals, and/or before bedtime. These supplements can be purchased at most local grocery stores, pharmacies, and chain super-stores. If you have any questions about your diet or nutrition, call the hospital and ask for the dietitian. Hardy Gamez MD - 05/09/2024 4:54 PM EST Continuity of Care Form Patient Name: Francine Hobson : 1985 Admit date: 05/01/2024 Discharge date: Code Status Order: Full Code Advance Directives: Advance Care Flowsheet Documentation Admitting Physician: Tanya Mercado MD PCP: No primary care provider on file. Discharging Nurse: Discharging Hospital Unit/Room#: 0343/0343-02 Discharging Unit Phone Number: Emergency Contact: Extended Emergency Contact Information Primary Emergency Contact: Arthur Victor Relation: Boyfriend Past Surgical History: Past Surgical History: Procedure Laterality Date BOWEL RESECTION SECTION CT ABSCESS DRAIN SUBCUTANEOUS 05/03/2024 CT ABSCESS DRAIN SUBCUTANEOUS 05/03/2024 Jose Manuel Torre MD [facility] CT SCAN TONSILLECTOMY AND ADENOIDECTOMY TUMOR REMOVAL Left left shoulder, benign WISDOM TOOTH EXTRACTION Immunization History: There is no immunization history on file for this patient. Active Problems: Patient Active Problem List Diagnosis Code Crohn's disease with complication ([facility]) K50.919 Abdominal pain despite therapy for Crohn's disease (HCC) K50.90 Crohn's colitis, other complication (HCC) K50.118 Ileitis K52.9 Partial small bowel obstruction (HCC) K56.600 Crohn's disease of colon with rectal bleeding (HCC) K50.111 Intra-abdominal abscess ([facility]) K65.1 Depression, unspecified F32.A Generalized anxiety disorder with panic attacks F41.1, F41.0 Crohn's disease of colon with complication (HCC) K50.119 Generalized abdominal pain R10.84 Crohn's disease of colon with abscess (HCC) K50.114 Pelvic abscess in female N73.9 Abscess of intestine due to Crohn's disease (HCC) K50.914 Bandemia D72.825 Normocytic normochromic anemia D64.9 Isolation/Infection: Isolation No Isolation Patient Infection Status None to display Nurse Assessment: Last Vital Signs: BP (!) 97/57 Pulse 67 Temp 98 F (36.7 C) (Oral) Resp 16 Ht 1.689 m (5' 6.5 ) Wt 55.4 kg (122 lb 2.2 oz) LMP 04/28/2024 SpO2 96% BMI 19.42 kg/m Last documented pain score (0-10 scale): Pain Level: 6 Last Weight: Wt Readings from Last 1 Encounters: 05/01/24 55.4 kg (122 lb 2.2 oz) Mental Status: {IP PT MENTAL STATUS:} IV Access: { WEN IV ACCESS:942559588} Nursing Mobility/ADLs: Walking {CHP DME ADLs:820583814} Transfer {CHP DME ADLs:245207175} Bathing {CHP DME ADLs:869332598} Dressing {CHP DME ADLs:629529096} Toileting {CHP DME ADLs:627992139} Feeding {CHP DME ADLs:066136698} Furniture Dipper {P DME ADLs:320359343} Med Delivery { WEN MED Delivery:374742860} Wound Care Documentation and Therapy: Elimination: Continence: Bowel: {YES / NO:} Bladder: {YES / NO:} Urinary Catheter: {Urinary Catheter:171934481} Colostomy/Ileostomy/Ileal Conduit: {YES / NO:} Date of Last BM: Intake/Output Summary (Last 24 hours) at 05/09/2024 1654 Last data filed at 05/08/2024 1819 Gross per 24 hour Intake 300 ml Output -- Net 300 ml I/O last 3 completed shifts: In: 1368.5 [P.O.:300; I.V.:504.2; IV Piggyback:564.3] Out: - Safety Concerns: { WEN Safety Concerns:065025515} Impairments/Disabilities: { WEN Impairments/Disabilities:6171189 73} Nutrition Therapy: Current Nutrition Therapy: { WEN Diet List:232980272} Routes of Feeding: {CHP DME Other Feedings:018536059} Liquids: {Insurance Case Manager liquid thickness:78140} Daily Fluid Restriction: {CHP DME Yes amt example:135582349} Last Modified Barium Swallow with Video (Video Swallowing Test): {Done Not Done Date:} Treatments at the Time of Hospital Discharge: Respiratory Treatments: Oxygen Therapy: {Therapy; copd oxygen:29187} Ventilator: {[facility] Vent List:441008385} Rehab Therapies: {THERAPEUTIC INTERVENTION:7229658124} Weight Bearing Status/Restrictions: { CC Weight Bearin} Other Medical Equipment (for information only, NOT a DME order): {EQUIPMENT:689966470} Other Treatments: Patient's personal belongings (please select all that are sent with patient): {CHP DME Belongings:410596166} RN SIGNATURE: {Esignature:091060176} CASE MANAGEMENT/SOCIAL WORK SECTION Inpatient Status Date: Readmission Risk Assessment Score: Readmission Risk Risk of Unplanned Readmission: 15 Discharging to Facility/ Agency Name: Address: Phone: Fax: Dialysis Facility (if applicable) Name: Address: Dialysis Schedule: Phone: Fax: Mine Foreman/Professor Of Historical Theology signature: {Esignature:894518553} PHYSICIAN SECTION Prognosis: {Prognosis:9941431113} Condition at Discharge: { Patient Condition:583271642} Rehab Potential (if transferring to Rehab): {Prognosis:4778764320} Recommended Labs or Other Treatments After Discharge: Physician Certification: I certify the above information and transfer of Francine Hobson is necessary for the continuing treatment of the diagnosis listed and that she requires {Admit to Appropriate Level of Care:46131} for {GREATER/LESS:744896631} 30 days. Update Admission H&P: {CHP DME Changes in HandP:676600562} PHYSICIAN SIGNATURE: {Esignature:795499293} documented in this encounter [facility] 05-09-2024 History of Present illness Narrative Images from the original note were not included. [facility] - Progress Note Today's Date and Time: 05/09/2024, 9:54 AM Impression : Perirectal abscess Lt side Abdominal abscess culture positive for streptococcus anginosus. S/P IR aspirate of 18 cc pus from abscess on 05-03-24 Crohn's Disease PMHx of abscess, last episode 2013 On upadacitinib (Rinvoq); known lapse in treatment due to access. Right ovarian cyst 05/01/24 PSHx: Ileo-cecal resection 2012 Recent infection, treated with Amoxicillin (completed 04/28/2024) Recommendations: Continue Zosyn. Start date 05-01-24. Continue until discharge Switch to po Augmentin 875 po BID at discharge x 2 weeks D/C Vancomycin Office f/up in [address] Scanlon for infection. Please call [phone] for appointment Medical Decision Making/Summary/Discussion: 024 Chron's GI holding off steroids till abscess improves - await ID clearance Pelvic abscess: CT 05/06 shows persistent multiloculated pelvic abscess No surgical intervention at this time. On zosyn Infection Control Recommendations [place] Precautions Antimicrobial Stewardship Recommendations Simplification of therapy Targeted therapy Coordination of Outpatient Care: Estimated Length of IV antimicrobials:TBD Patient will need Midline Catheter Insertion: TBD Patient will need PICC line Insertion:TBD Patient will need: Home IV , Infusion Center, SNF, LTAC: TBD Patient will need outpatient wound care: Chief complaint/reason for consultation: Crohns with gram positive cocci abscess. History of Present Illness: Francine Hobson is a 38 y.o.-year-old female who was initially admitted on 05/01/2024. Patient seen at the request of Dr. Martínez. INITIAL HISTORY: 05/01/24: Patient admitted to GI from ED 38yo female with a PMHx of Crohn's disease presents to the ED with diffuse abdominal pain that started earlier today. Pt reported having back pain, cough and body aches, believed to be unknown viral infection that was present for weeks. Cough was subsequently treated with amoxicillin. Patient has recurrent history or intra-abdominal abscesses. She states that she has significant pain with bowel movements. Experiencing nausea/vomiting. Denies melena, hematochezia, hematemesis. Patient denies any chest pain, shortness of breath, headache or dizziness. CT Abdomen/pelvis: Findings: Active crohn's disease with complex fluid collection associated with inflamed small bowel in the lower abdomen and pelvis and possible abscess, as described. Possible fistula versus focal area of narrowing in the sigmoid colon. No evidence for bowel obstruction. U/S Transvaginal Impression 1. Right ovarian 5.5 cm simple cystic structure most compatible with dominant follicle Patient started on IV Vanco and Zosyn 05/02/24: GI admitted to medicine Per GI: The abdominal pain has progressively worsened. She is having abdominal distention, nausea, vomiting inability to tolerate p.o. She also endorses difficulty urinating. Patient has history of Crohn's disease. She recently started seeing Dr. Maguire with gastroenterology. She last had a colonoscopy 1 year ago and was told it was relatively normal. CT abdomen/pelvis w/IV contrast: Findings: Unchanged appearance of active Crohn's disease with complex multiloculated abscess without definite fistula seen on this examination. Partial small bowel obstruction given dilated proximal bowel 05/03/24 Crohn's flareup with intra-abdominal abscesses. Appreciate GI, colorectal surgery, IR recommendations. CT guided abscess drainage Aspirate culture positive for Gram + cocci in chains 05/04/24 Patient continues on Vanco and Zosyn ID consulted due to gram positive cocci abscess. CURRENT EVALUATION- DAILY INTERVAL CHANGES 05/09/2024 BP (!) 97/57 Pulse 67 Temp 98 F (36.7 C) (Oral) Resp 16 Ht 1.689 m (5' 6.5 ) Wt 55.4 kg (122 lb 2.2 oz) LMP 04/28/2024 SpO2 96% BMI 19.42 kg/m Afebrile, normotensive to hypotensive Vital signs stable Pt feeling slightly better. Tolerating oral intake, pain is controlled. Says the antibiotics are helping. Informed her of the treatment course. GI to begin steroids. No further IR or surgical intervention at this time. Medications reviewed: Continue Zosyn. Start date 05-01-24. Continue until discharge Switch to po Augmentin 875 po BID at discharge x 2 weeks D/C Vancomycin Blood culture negative 08/0605/01/24 Lactic acid 0.8-->0.9 WBC trending down 12.2-->7.6 Calprotectin stool pending. Cdiff negative Fecal occult: negative UA showed small leukocytes; all else negative Labs, X rays reviewed: 05/09/2024 with independent review of X rays I have independently reviewed/ordered the following labs: CBC with Differential: Recent Labs 05/07/24 1059 05/08/24 0603 WBC 8.4 7.6 HGB 10.4* 8.7* HCT 34.7* 29.4* PLT 409 337 LYMPHOPCT 12* 15* MONOPCT 5 6 EOSPCT 1 2 BMP: No results for input(s): NA , K , CL , CO2 , BUN , CREATININE , MG in the last 72 hours. Invalid input(s): CA Hepatic Function Panel: No results for input(s): LABALBU , BILIDIR , IBILI , BILITOT , ALKPHOS , ALT , AST in the last 72 hours. Invalid input(s): PROT No results for input(s): RPR in the last 72 hours. No results for input(s): HIV in the last 72 hours. No results for input(s): BC in the last 72 hours. Lab Results Component Value Date/Time BACTERIA None 05/01/2024 04:49 PM RBC 3.31 05/08/2024 06:03 AM WBC 7.6 05/08/2024 06:03 AM TURBIDITY Clear 05/01/2024 04:49 PM Lab Results Component Value Date/Time CREATININE 0.5 05/06/2024 08:55 AM GLUCOSE 99 05/06/2024 08:55 AM CRP 6.8 Cultures: Urine: Blood: Blood culture negative 08/0605/01/24 Body fluid: 05-03-24: Abdominal abscess: Strep anginosus Sputum : Wound: MRSA Nares: Imaging: CT Abdomen w/o Contrast: IMPRESSION: 1. Stable small bowel and colonic inflammatory changes and adynamic ileus. No evidence of a bowel leak. 2. Stable to slightly improved multiloculated pelvic abscesses Review of Systems: Pertinent review of symptoms listed in Initial Evaluation and daily interval evaluations sections Physical Examination : Patient Vitals for the past 8 hrs: BP Temp Temp src Pulse Resp SpO2 05/09/24 0745 (!) 97/57 98 F (36.7 C) Oral 67 16 -- 05/09/24 0552 -- -- -- -- 17 -- 05/09/24 0309 -- -- -- -- 18 -- 05/09/24 0230 100/65 -- -- 65 18 96 % General Appearance: Awake, alert, pain distress. Head: Normocephalic, no trauma Eyes: Pupils equal, round, reactive to light and accommodation; extraocular movements intact; sclera anicteric; conjunctivae pink. No embolic phenomena. ENT: Oropharynx clear, without erythema, exudate, or thrush. No tenderness of sinuses. Mouth/throat: mucosa pink and moist. No lesions. Dentition in good repair. Neck:Supple, without lymphadenopathy. Thyroid normal, No bruits. Pulmonary/Chest: Clear to auscultation, without wheezes, rales, or rhonchi. No dullness to percussion. Cardiovascular: Regular rate and rhythm without murmurs, rubs, or gallops. Abdomen: Soft, diffuse abdominal pain concentrated periumbilical and b/l lower quadrants. All four Extremities: No cyanosis, clubbing, edema, or effusions. Neurologic: No gross sensory or motor deficits. Skin: Warm and dry with good turgor.No signs of peripheral arterial or venous insufficiency. No ulcerations. No open wounds. I have personally reviewed the past medical history, past surgical history, medications, social history, and family history, and I have updated the database accordingly. Past Medical History: Past Medical History: Diagnosis Date Crohn disease (HCC) Past Surgical History: Past Surgical History: Procedure Laterality Date BOWEL RESECTION SECTION CT ABSCESS DRAIN SUBCUTANEOUS 05/03/2024 CT ABSCESS DRAIN SUBCUTANEOUS 05/03/2024 Jose Manuel Torre MD [facility] CT SCAN TONSILLECTOMY AND ADENOIDECTOMY TUMOR REMOVAL Left left shoulder, benign WISDOM TOOTH EXTRACTION Medications: vitamin B-12 1,000 mcg Oral Daily iron sucrose 200 mg IntraVENous Q24H amitriptyline 25 mg Oral Nightly dicyclomine 10 mg Oral TID pantoprazole 40 mg Oral QAM AC citalopram 40 mg Oral Daily sodium chloride flush 5-40 mL IntraVENous 2 times per day piperacillin-tazobactam 3,375 mg IntraVENous Q8H Social History: Social History Socioeconomic History Marital status: Single Spouse name: Not on file Number of children: Not on file Years of education: Not on file Highest education level: Not on file Occupational History Not on file Tobacco Use Smoking status: Every Day Types: Cigarettes Smokeless tobacco: Never Vaping Use Vaping status: Never Used Substance and Sexual Activity Alcohol use: Yes Comment: occass. Drug use: Yes Types: Marijuana ([place]) Sexual activity: Yes Partners: Male Other Topics Concern Not on file Social History Narrative Not on file Social Determinants of Health Financial Resource Strain: Low Risk (11/24/2022) Received from [facility] Overall Financial Resource Strain (CARDIA) Difficulty of Paying Living Expenses: Not hard at all Food Insecurity: No Food Insecurity (05/03/2024) Hunger Vital Sign Worried About Running Out of Food in the Last Year: Never true Ran Out of Food in the Last Year: Never true Transportation Needs: No Transportation Needs (05/03/2024) PRAPARE - Transportation Lack of Transportation (Medical): No Lack of Transportation (Non-Medical): No Physical Activity: Not on file Stress: Not on file Social Connections: Unknown (06/03/2021) Received from [facility] Social Connections Frequency of Communication with Friends and Family: Not asked Frequency of Social Gatherings with Friends and Family: Not asked Intimate Partner Violence: Unknown (06/03/2021) Received from [facility] Intimate Partner Violence Fear of Current or Ex-Partner: Not asked Emotionally Abused: Not asked Physically Abused: Not asked Sexually Abused: Not asked Housing Stability: Low Risk (05/03/2024) Housing Stability Vital Sign Unable to Pay for Housing in the Last Year: No Number of Times Moved in the Last Year: 0 Homeless in the Last Year: No Family History: History reviewed. No pertinent family history. Allergies: Gluten, Motrin [ibuprofen], and Nsaids Medical Decision Making-Imaging: CT ABSCESS DRAINAGE Result Date: 05/04/2024 PROCEDURE: CT GUIDEDPELVIC FLUID NEEDLE PLACEMENT/ASPIRATION MODERATE CONSCIOUS SEDATION 05/03/2024 HISTORY: ORDERING SYSTEM PROVIDED HISTORY: Please perform CT guided IR aspiration of abdominal abscess TECHNOLOGIST PROVIDED HISTORY: Please perform CT guided IR aspiration of abdominal abscess Is the patient ?->No Reason for Exam: Pelvic abscess aspirate Multilobulated pelvic fluid collection, Crohn's disease SEDATION: Moderate sedation was ordered and supervised by the attending with physician [id number]-mliv monitoring. Medications were provided and recorded by Radiology nurses. DOSE: DOSE/DLP: 351.91 mGy-cm Dose modulation, iterative reconstruction, and/or weight based adjustment of the mA/kV was utilized to reduce the radiation dose to as low as reasonably achievable. TECHNIQUE/PROCEDURE DETAILS: Informed consent was obtained after a detailed explanation of the procedure including risks. [place] protocol was followed. Sterile gown, masks, hats, and gloves utilized for maximal sterile barrier. The patient was placed in the prone position on the CT couch. A legal services professional scan was performed of the pelvis. The previously identified pelvic fluid was re-identified, and contrast could still be seen within the rectum/sigmoid colon. Moderate conscious sedation was initiated. A site was selected for drainage in the left perirectal region using a transgluteal approach. The skin was prepped and draped in sterile manner, and 1% lidocaine was utilized for local anesthetic. A 5 Scottish 9 Yueh needle sheath was advanced under intermittent CT guidance into the fluid collection. Aspiration through this needle yielded 18 mL cloudy yellow fluid. This aspiration appear to collapse the locule of fluid in which the needle was placed, but at least one more loculation could still be seen within the field of view. The needle was removed. Blood loss was minimal. COMPLICATIONS: None immediately apparent. Technically successful CT-guided pelvic fluid collection aspiration using a left transgluteal approach. CT ABDOMEN PELVIS W IV CONTRAST Additional Contrast? Oral and Rectal Result Date: 05/02/2024 EXAMINATION: CT OF THE ABDOMEN AND PELVIS WITH CONTRAST 05/02/2024 9:43 am TECHNIQUE: CT of the abdomen and pelvis was performed with the administration of intravenous contrast. Multiplanar reformatted images are provided for review. Automated exposure control, iterative reconstruction, and/or weight based adjustment of the mA/kV was utilized to reduce the radiation dose to as low as reasonably achievable. COMPARISON: 05/01/2024 HISTORY: ORDERING SYSTEM PROVIDED HISTORY: chrons flare, pelvic abscess, concern for fistulous connection TECHNOLOGIST PROVIDED HISTORY: chrons flare, pelvic abscess, concern for fistulous connection Decision Support Exception - unselect if not a suspected or confirmed emergency medical condition->Emergency Medical Condition (MA) FINDINGS: Lower chest: The lung bases are clear. EG junction, stomach and duodenal sweep: Unremarkable Liver: Unremarkable Gallbladder: Unremarkable Biliary tree: Unremarkable Pancreas: Unremarkable for patient's age. Spleen: Unremarkable Kidneys and ureters: Unremarkable Adrenal glands: Unremarkable Retroperitoneal structures: Unremarkable Small bowel and colon: Dilated proximal small bowel loops containing contrast with long segment narrowing involving a loop of ileum seen in the mid abdomen with circumferential wall thickening consistent with active inflammation. This is partially surrounded by the multiloculated abscess seen in the right lower abdomen measuring 7.1 by 7.5 cm on image 123. This is contiguous with 2 additional large abscesses seen in the right adnexa measuring 6.3 x 5.4 cm and in the upper pelvis in the midline measuring 5.3 x 4.8 cm. Overall similar to recent prior examination. Prior ileo seek ectomy. There is contrast seen within the small bowel as well as within the rectosigmoid colon without definite fistula seen on today's examination. Fluid seen in the left adnexa surrounding the narrowed sigmoid colon without definite fistula is similar to prior examination. Appendix: Not seen Urinary bladder: Unremarkable Free fluid/air: None Lymph nodes: No enlarged lymph nodes Osseus structures: No destructive lesion Vasculature: No aneurysm Other: None 1. Unchanged appearance of active Crohn's disease with complex multiloculated abscess without definite fistula seen on this examination. Partial small bowel obstruction given dilated proximal bowel US DUP ABD PEL RETRO SCROT LIMITED Result Date: 05/01/2024 EXAMINATION: PELVIC ULTRASOUND 05/01/2024 TECHNIQUE: Transvaginal pelvic ultrasound was performed. COMPARISON: None . 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 0.7 cm Right Ovary: 5.2 x 5.5 x 7.0 cm Left Ovary: 2.0 x 2.1 x 4.4 cm Ultrasound Findings: Uterus: Uterus demonstrates normal myometrial echotexture. Endometrial stripe: Endometrial stripe is within normal limits. Right Ovary: There is a 5.4 cm anechoic cystic structure without complex feature or associated increased color Doppler flow. Left Ovary: Left ovary is within normal limits. Free Fluid: No evidence of free fluid. 1. Right ovarian 5.5 cm simple cystic structure most compatible with dominant follicle. 2. Otherwise, unremarkable pelvic ultrasound. RECOMMENDATIONS: Pathology: Right ovarian probable benign cyst measuring 5.4 cm.Recommend follow-up pelvic ultrasound in 3-6 months. US NON OB TRANSVAGINAL Result Date: 05/01/2024 EXAMINATION: PELVIC ULTRASOUND 05/01/2024 TECHNIQUE: Transvaginal pelvic ultrasound was performed. COMPARISON: None. 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 0.7 cm Right Ovary:5.2 x 5.5 x 7.0 cm Left Ovary: 2.0 x 2.1 x 4.4 cm Ultrasound Findings: Uterus: Uterus demonstrates normal myometrial echotexture. Endometrial stripe: Endometrial stripe is within normal limits. Right Ovary: There is a 5.4 cm anechoic cystic structure without complex feature or associated increased color Doppler flow. Left Ovary: Left ovary is within normal limits. Free Fluid: No evidence of free fluid. 1. Right ovarian 5.5 cm simple cystic structure most compatible with dominant follicle. 2. Otherwise, unremarkable pelvic ultrasound. RECOMMENDATIONS: Pathology: Right ovarian probable benign cyst measuring 5.4 cm.Recommend follow-up pelvic ultrasound in 3-[address] ABDOMEN PELVIS W IV CONTRAST Additional Contrast? None Result Date: 05/01/2024 EXAMINATION: CT OF THE ABDOMEN AND PELVIS WITH CONTRAST 05/01/2024 3:27 pm TECHNIQUE: CT of the abdomen and pelvis was performed with the administration of intravenous contrast. Multiplanar reformatted images are provided for review. Automated exposure control, iterative reconstruction, and/or weight based adjustment of the mA/kV was utilized to reduce the radiation dose to as low as reasonably achievable. COMPARISON: CT exams 01/25/2024 and 11/22/2023 HISTORY: ORDERING SYSTEM PROVIDED HISTORY: Hx of crohns, severe abdominal pain TECHNOLOGIST PROVIDED HISTORY: Hx of crohns, severe abdominal pain Decision Support Exception - unselect if not a suspected or confirmed emergency medical condition->Emergency Medical Condition (MA) FINDINGS: Lower Chest: No acute findings. Organs: Findings compatible with hepatic steatosis. No inflammatory change identified in the gallbladder fossa. The pancreas, spleen, adrenals and kidneys reveal no acute findings. GI/Bowel: Relatively diffuse bowel inflammation involving long segments of small bowel in the pelvis, distal colon and rectum are noted. There is somewhat ill-defined fluid and clustered small bowel in the central lower abdomen/pelvis on axial image 113 has the appearance of an inflammatory mass associated with active Crohn's disease. Suspected rim enhancing free fluid in the pelvis and suspected fistula tract versus narrowed segment of colon on axial image 135. A rim enhancing pocket of fluid measuring up to 5.2 x 4.2 cm on axial image 125 is a presumed abscess versus patulous small bowel loop. There is also a prominent fluid density in the right pelvis on axial image 136 that is unclear whether this is in additional fluid collection or prominent adnexal cyst. No evidence for bowel obstruction. No free air. Postoperative findings in the proximal colon again noted. Pelvis: Fluid and inflammatory change, as described above. No acute findings identified in the bladder. Peritoneum/Retroperitoneum: No free air. Rim enhancing fluid in the lower abdomen and pelvis, as above. Bones/Soft Tissues: No abnormality identified. *Unless otherwise specified, incidental findings do not require dedicated imaging follow-up. Findings compatible with active Crohn's disease with complex fluid collection associated with inflamed small bowel in the lower abdomen and pelvis and possible abscess, as described. Possible fistula versus focal area of narrowing in the sigmoid colon. No evidence for bowel obstruction. These findings could be further delineated with follow-up imaging utilizing oral contrast. Prominent cystic structure in the right pelvis may represent an adnexal cyst versus loculated fluid collection, for which attention to on follow-up imaging is recommended. Medical Decision Jpsful-[id number]-Xqxcl: Results Procedure Component Value Units Date/Time C DIFF TOXIN/ANTIGEN [[id number]] Collected: 05/07/24 1425 Order Status: Completed Specimen: Stool Updated: 05/08/24 0940 Specimen Description .FECES C DIFF AG + TOXIN NEGATIVE Comment: No C. difficile antigen and Toxin Detected. Gastrointestinal Panel, Molecular [[id number]] Collected: 05/07/24 1145 Order Status: Sent Specimen: Stool Updated: 05/07/24 1145 C DIFF TOXIN/ANTIGEN [[id number]] Order Status: No result Specimen: Stool C DIFF TOXIN/ANTIGEN [[id number]] Order Status: Canceled Specimen: Stool Culture, Body Fluid (with Gram Stain) [[id number]] (Abnormal) Collected: 05/03/24 1805 Order Status: Completed Specimen: Body Fluid from Aspirate Updated: 05/06/24 1408 Specimen Description .ASPIRATE Special Requests Site: Body Fluid Direct Exam FEW NEUTROPHILS NO BACTERIA SEEN Gram stain made from cytocentrifuged specimen. Organisms and cells will be concentrated. Culture POSITIVE Fluid Culture DIRECT GRAM STAIN FROM BOTTLE: GRAM POSITIVE COCCI IN CHAINS VIRIDANS STREPTOCOCCUS GROUP Identified as : STREPTOCOCCUS ANGINOSUS Identification by MALDI-TOF (NOTE) Direct Gram Stain from bottle result called to and read back by:WAQAS De Guzman 05/04/24 1750 C DIFF TOXIN/ANTIGEN [[id number]] Order Status: No result Specimen: Stool Culture, Blood 1 [[id number]] Collected: 05/01/24 1617 Order Status: Completed Specimen: Blood Updated: 05/06/24 163 Specimen Description .BLOOD Special Requests RAC 5ML Culture NO GROWTH 5 DAYS Culture, Blood 1 [[id number]] Collected: 05/01/24 1550 Order Status: Completed Specimen: Blood Updated: 05/06/24 163 Specimen Description .BLOOD Special Requests LFT AC 10ML Culture NO GROWTH 5 DAYS Medical Decision Making-Other: Note: Thank you for allowing us to participate in the care of this patient. Please call with questions. Alona Millan, MS-3 Medical Student ATTESTATION: I have discussed the case, including pertinent history and exam findings with the medical practice administrator. I have evaluated the History, physical findings and pictures of the patient and the price elements of the encounter have been performed by me. I have reviewed the laboratory data, other diagnostic studies and discussed them with the medical practice administrator. I have updated the medical record where necessary. I agree with the assessment, plan and orders as documented by the medical practice administrator and I have modified them as necessary. Elements of Medical Decision Making: Note: I have independently performed the steps listed below as part of the medical decision making and evaluation. Examined and discussed with patient. Perirectal abscess Status post IR percutaneous drainage Underlying Crohn's disease History of recurrent abscesses Labs, medications, radiologic studies were reviewed with personal review of films Radiologic studies Lab work Cultures Abscess with gram-positive cocci in chains Large amounts of data were reviewed Patient with a previous history of Crohn's disease who presented with diffuse abdominal pain She has a history of recurrent intra-abdominal abscesses CT of the abdomen showed the presence of a complex fluid collection in the perirectal area with associated inflamed small bowel The patient underwent a percutaneous drainage by IR Gram stain shows the presence of gram-positive cocci in chains and pairs Patient was started on treatment with Zosyn Discussed with nursing Staff, life care planner Dr Mercado Infection Control and Prevention measures reviewed [place] precaution All prior entries were reviewed Colorectal surgery and internal medicine notes reviewed Administer medications as ordered Prognosis: Guarded Discharge planning reviewed Follow up as outpatient. Jaxson Scanlon MD. 05/09/2024, 9:54 AM Pager: - Office: Images from the original note were not included. [facility] Office: [phone] Marco Delarosa DO, Dominic Gonzalez DO, Clifton Blanc DO, Froylan Snowden DO, Paula Jensen MD, Radha Greer MD, Nitish Parra MD, Maya Hernández MD, Porfirio García MD, Norma Smith MD, Tanya Mercado MD, Eloy Alves DO, Heidi Roche MD, Arthur Schroeder MD, Jose Manuel Delarosa DO, Shikha Pastrana MD, Obed Lilly DO, Rosangela Koehler MD, Alysa De Santiago MD, Dianne Agudelo MD, Judith Nicole MD, London Morales MD, Gamal Granger MD, Abby Salgado MD, Nereyda Lucas MD, Dru Shannon MD, Shahid Reddy MD, Ashley Schaffer DO, Cruzito Holloway MD, Alix Acosta CNP, Shefali Hills CNP, Ashley Baker CNP, Muna Brandon DNP, Neida Mars CNP, Jigna De Dios CNP, Angelina Peguero CNP, Adwoa Lei CNP, Carmen Wray PA-C, Kathy Apple PA-C, Jaz Castaneda CNP, Robert Huertas CNP, Vanessa Saleh CNP, Josefina Higgins CNP, Lissett Root CNP, Lu Cooley, RONEL [facility] IN-PATIENT SERVICE [facility] Progress Note 05/09/2024 9:11 AM Name: Francine Hobson Acct: [id number] Room: [address] [place] [address] Day: 8 Admit Date: 05/01/2024 2:13 PM PCP: No primary care provider on file. Code Status: Full Code Subjective: C/C: Chief Complaint Patient presents with Abdominal Pain Interval History Status: improved. Ongoing abdominal pain but better, improving. Denies diarrhea but feels constipated. Denies nausea or vomit. Feels weak but due to staying in bed. Wants to go home and see kids. Denies night sweats, sob, fever, chills, rigors. Denies urinary symptoms, says she can urinate fine now. Tolerating diet but low appetite Brief History: 40-year-old female past medical history of Crohn's disease, history of ileocecal resection, anxiety depression, vitamin D deficiency presents with abdominal pain. Concern for Crohn's with abscess. Colorectal surgery, GI, IR following patient. Underwent CT abdomen pelvis on 05/02/2024 No additional drainage from IR standpoint as the right lower quadrant is an ovarian follicle not an abscess. Given that Loculated abscesses are less than 3 cm which do not require drainage, she was managed medically and improved. Previous aspirate growing gram-positive cocci. Received Iv antibiotics followed by oral antibiotics for 2 weeks following culture sensitivities as per Infectious disease. Patient noted to have elevated calprotectin with concern for crohns flare. GI placed on steriods with plan for continuation of home meds. Patient overall improved with ongoing pain which she feels is controlled on pain meds and improving. Review of Systems: Constitutional: negative for chills, fevers, sweats Respiratory: negative for cough, dyspnea on exertion, shortness of breath, wheezing Cardiovascular: negative for chest pain, chest pressure/discomfort, lower extremity edema, palpitations Gastrointestinal: +abdominal pain, +constipation,- diarrhea, -nausea, -vomiting Neurological: negative for dizziness, headache Medications: Allergies: Allergies Allergen Reactions Gluten Motrin [Ibuprofen] Nsaids Current Meds: Scheduled Meds: vitamin B-12 1,000 mcg Oral Daily iron sucrose 200 mg IntraVENous Q24H amitriptyline 25 mg Oral Nightly dicyclomine 10 mg Oral TID pantoprazole 40 mg Oral QAM AC citalopram 40 mg Oral Daily sodium chloride flush 5-40 mL IntraVENous 2 times per day piperacillin-tazobactam 3,375 mg IntraVENous Q8H Continuous Infusions: sodium chloride 25 mL (05/08/24 0956) PRN Meds: diazePAM, sodium chloride flush, sodium chloride, potassium chloride OR potassium alternative oral replacement OR potassium chloride, ondansetron OR ondansetron, polyethylene glycol, bisacodyl, acetaminophen OR acetaminophen, LORazepam, fentanNYL Data: Past Medical History: has a past medical history of Crohn disease (HCC). Social History: reports that she has been smoking cigarettes. She has never used smokeless tobacco. She reports current alcohol use. She reports current drug use. Drug: Marijuana ([place]). Family History: History reviewed. No pertinent family history. Vitals: BP (!) 97/57 Pulse 67 Temp 98 F (36.7 C) (Oral) Resp 16 Ht 1.689 m (5' 6.5 ) Wt 55.4 kg (122 lb 2.2 oz) LMP 04/28/2024 SpO2 96% BMI 19.42 kg/m Temp (24hrs), Av.1 F (36.7 C), Min:98 F (36.7 C), Max:98.3 F (36.8 C) No results for input(s): POCGLU in the last 72 hours. I/O (24Hr): Intake/Output Summary (Last 24 hours) at 05/09/2024 0911 Last data filed at 05/08/2024 1819 Gross per 24 hour Intake 300 ml Output -- Net 300 ml Labs: Hematology: Recent Labs 05/07/24 1059 05/08/24 0603 WBC 8.4 7.6 RBC 3.86* 3.31* HGB 10.4* 8.7* HCT 34.7* 29.4* MCV 89.9 88.8 MCH 26.9 26.3 MCHC 30.0 29.6 RDW 14.1 14.3 PLT 409 337 MPV 9.5 9.7 Chemistry:No results for input(s): NA , K , CL , CO2 , GLUCOSE , BUN , CREATININE , MG , ANIONGAP , LABGLOM , GFRAA , CALCIUM , CAION , PHOS , PSA , PROBNP , TROPHS , CKTOTAL , CKMB , CKMBINDEX , MYOGLOBIN , DIGOXIN , LACTACIDWB in the last 72 hours.No results for input(s): LABALBU , LABA1C , W8YOGRD , FT4 , TSH , AST , ALT , LDH , GGT , ALKPHOS , BILITOT , BILIDIR , AMMONIA , AMYLASE , LIPASE , LACTATE , CHOL , HDL , CHOLHDLRATIO , TRIG , VLDL , LTV02MZ , PHENYTOIN , PHENYF , URICACID , POCGLU in the last 72 hours. Invalid input(s): PROT , W8IQYCY , LABGGT , LDLCHOLESTEROL ABG:No results found for: POCPH , PHART , PH , POCPCO2 , IED2VWJ , PCO2 , POCPO2 , PO2ART , PO2 , POCHCO3 , QLN9GTG , HCO3 , NBEA , PBEA , BEART , BE , THGBART , THB , UME5WVX , JZOU4JKE , S1WALEBG , O2SAT , FIO2 Lab Results Component Value Date/Time SPECIAL Site: Body Fluid 05/03/2024 06:05 PM Lab Results Component Value Date/Time CULTURE POSITIVE Fluid Culture 05/03/2024 06:05 PM CULTURE 05/03/2024 06:05 PM DIRECT GRAM STAIN FROM BOTTLE: GRAM POSITIVE COCCI IN CHAINS CULTURE (A) 05/03/2024 06:05 PM VIRIDANS STREPTOCOCCUS GROUP Identified as : STREPTOCOCCUS ANGINOSUS Identification by MALDI-TOF CULTURE 05/03/2024 06:05 PM (NOTE) Direct Gram Stain from bottle result called to and read back by:WAQAS De Guzman 05/04/24 2010 Radiology: CT ABDOMEN PELVIS WO CONTRAST Additional Contrast? Rectal Result Date: 05/06/2024 1. Stable small bowel and colonic inflammatory changes and adynamic ileus. No evidence of a bowel leak. 2. Stable to slightly improved multiloculated pelvic abscesses. CT ABSCESS DRAINAGE Result Date: 05/04/[address]-guided pelvic fluid collection aspiration using a left transgluteal approach. CT ABDOMEN PELVIS W IV CONTRAST Additional Contrast? Oral and Rectal Result Date: 05/02/2024 1. Unchanged appearance of active Crohn's disease with complex multiloculated abscess without definite fistula seen on this examination. Partial small bowel obstruction given dilated proximal bowel Physical Examination: General appearance: alert, cooperative and no distress, weak but cooperative. Mental Status: oriented to person, place and time and normal affect Lungs: clear to auscultation bilaterally, normal effort Heart: regular rate and rhythm, Abdomen: soft,tender to deep palpation, no acute abdomen, no distension, nml BS in all quadrants Extremities: no edema, redness, tenderness in the calves Skin: no gross lesions, rashes, induration Assessment: Hospital Problems Last Modified POA * (Principal) Intra-abdominal abscess (HCC) 05/01/2024 Yes Crohn's disease with complication (HCC) 05/01/2024 Yes Crohn's colitis, other complication (HCC) 05/02/2024 Yes Partial small bowel obstruction (HCC) 05/02/2024 Yes Depression, unspecified 05/01/2024 Yes Generalized anxiety disorder with panic attacks 05/01/2024 Yes Generalized abdominal pain 05/02/2024 Yes Crohn's disease of colon with abscess (HCC) 05/02/2024 Yes Pelvic abscess in female 05/05/2024 Yes Abscess of intestine due to Crohn's disease (HCC) 05/05/2024 Yes Bandemia 05/06/2024 Yes Normocytic normochromic anemia 05/08/2024 Yes Plan: Crohn's disease with intra-abdominal abscess and partial SBO: Sbo improved, tolerating diet. Having flatulence with small Bowl movement. Reports constuipation from pain medication ID transitioned to oral abx and GI placed on steriods for crohsn flare after work up. CTAP on showing improvement in abscesses. Infectious disease continues to follow. IR drained pelvic abscess on 05/03/2024 without drain retention secondary to high risk of developing enterocutaneous fistula. IR again reconsulted for abscess drainage today, areas not amendable to drainage Depression with anxiety: Continue Elavil, Celexa, Valium, Ativan Bowel meds continue Protonix, Lovenox on hold secondary to upcoming procedure. Continue SCDs Normocytic normochromic anemia: Check iron studies-SUE and vitamin B12 deficient, supplements ordered Hardy Gamez MD 05/09/2024 9:11 AM [facility] Gastroenterology Progress Note Francine Hobson is a 38 y.o. female patient. Hospitalization Day:8 Chief consult reason: Crohn's disease Subjective: Pt seen and examined. No acute events overnight. Tolerating liquids No rectal bleeding, had small stool Jairo pro is 2850, low iron sat, low B12 Still on antibiotics and awaiting to start steroids VITALS: BP 100/65 Pulse 65 Temp 98.3 F (36.8 C) (Oral) Resp 17 Ht 1.689 m (5' 6.5 ) Wt 55.4 kg (122 lb 2.2 oz) LMP 04/28/2024 SpO2 96% BMI 19.42 kg/m TEMPERATURE: Current - Temp: 98.3 F (36.8 C); Max - Temp Av.2 F (36.8 C) Min: 98 F (36.7 C) Max: 98.3 F (36.8 C) Physical Assessment: General appearance: alert, cooperative and mild pain distress Mental Status: oriented to person, place and time and normal affect Lungs: clear to auscultation bilaterally, normal effort Heart: regular rate and rhythm, no murmur Abdomen: soft, slightly tender, nondistended, normal bowel sounds, no masses, hepatomegaly, splenomegaly Extremities: no edema, redness, tenderness in the calves Skin: no gross lesions, rashes, induration Data Review: Labs and Imaging: CBC: Recent Labs 05/07/24 1059 05/08/24 0603 WBC 8.4 7.6 HGB 10.4* 8.7* MCV 89.9 88.8 RDW 14.1 14.3 PLT 409 337 ANEMIA STUDIES: Recent Labs 05/07/24 1059 05/08/24 0603 TIBC -- 179* FERRITIN -- 163* [id number] 176* -- FOLATE 17.7 -- BMP: No results for input(s): NA , K , CL , CO2 , BUN , CREATININE , GLUCOSE , CALCIUM , MG in the last 72 hours. Invalid input(s): PHOS;3 LFTS: No results for input(s): ALKPHOS , ALT , AST , BILITOT , BILIDIR , LABALBU in the last 72 hours. Other pertinent labs: Gastroenterology impression: Crohn's disease with pelvic abscesses s/p IR drainage -18 ml cloudy fluid removed-STREPTOCOCCUS ANGINOSUS -HX of small bowel resection 2005 Sepsis/Leukocytosis secondary to above-improving -Pt receiving Zosyn and Vanco RLQ pain-improving Sepsis- improving on abx -Update-received update from nursing staff that ID ok start of steroids Plan: Will start pt on solumedrol 40 mg IV daily Full liquid diet-may advance as patient can tolerate Encourage OOB, up to chair, self-care, etc Avoid NSAIDs Supportive care per primary Will follow This plan was formulated in collaboration with Dr. Roberto MD Thank you for allowing me to participate in the care of your patient. Please feel free to contact me with any questions or concerns. Jam Meghan [facility] Gastroenterology Leroy De La Vega, SHOULDER JOINER - [facility] [phone] 05/09/2024 8:03 AM Estimated time of 15 mins reviewing chart, assessing patient and formulating plan of care This note was created with the assistance of a speech-recognition program. Although the intention is to generate a document that actually reflects the content of the visit, no guarantees can be provided that every mistake has been identified and corrected by editing. Associated attestation - Sean Mejia MD - 05/09/2024 6:23 PM EST Attending Attestation: I have discussed the care of Francine Hobson and I have examined the patient myselft and taken ros and hpi , including pertinent history and exam findings, with the author of this note . I have reviewed the price elements of all parts of the encounter with the nurse practitioner/resident. I agree with the assessment, plan and orders as documented by the above health care provider with the following addendum More than 50% of the time was spent taking care of this patient in addition to the nurse practitioner time. That also included history taking follow-up physical examination and review of system. Electronically signed by Sean Mejia MD [facility] Gastroenterology Progress Note Francine Hobson is a 38 y.o. female patient. Hospitalization Day:7 Chief consult reason: Crohn's disease Subjective: Pt seen and examined. Patient resting in bed today says she feels slightly better and is tolerating a little bit of oral intake Passing gas but no BM today Patient sepsis not amendable to IR drainage due to shape and size Long discussion with patient she understands Continues on antibiotics VITALS: BP 93/60 Pulse 63 Temp 98.2 F (36.8 C) (Oral) Resp 17 Ht 1.689 m (5' 6.5 ) Wt 55.4 kg (122 lb 2.2 oz) LMP 04/28/2024 SpO2 96% BMI 19.42 kg/m TEMPERATURE: Current - Temp: 98.2 F (36.8 C); Max - Temp Av.1 F (36.7 C) Min: 97.7 F (36.5 C) Max: 98.2 F (36.8 C) Physical Assessment: General appearance: alert, cooperative and mild pain distress Mental Status: oriented to person, place and time and normal affect Lungs: clear to auscultation bilaterally, normal effort Heart: regular rate and rhythm, no murmur Abdomen: soft, slightly tender, nondistended, normal bowel sounds, no masses, hepatomegaly, splenomegaly Extremities: no edema, redness, tenderness in the calves Skin: no gross lesions, rashes, induration Data Review: Labs and Imaging: CBC: Recent Labs 05/06/24 0855 05/07/24 1059 05/08/24 0603 WBC 9.6 8.4 7.6 HGB 9.4* 10.4* 8.7* MCV 88.5 89.9 88.8 RDW 14.0 14.1 14.3 PLT 405 409 337 ANEMIA STUDIES: Recent Labs 05/07/24 1059 05/08/24 0603 TIBC -- 179* FERRITIN -- 163* [id number] 176* -- FOLATE 17.7 -- BMP: Recent Labs 05/05/24 2226 05/06/24 0855 NA -- 140 K 3.0* 4.2 CL -- 108* CO2 -- 24 BUN -- <2* CREATININE -- 0.5* GLUCOSE -- 99 CALCIUM -- 8.8 LFTS: No results for input(s): ALKPHOS , ALT , AST , BILITOT , BILIDIR , LABALBU in the last 72 hours. Other pertinent labs: Gastroenterology impression: Crohn's disease with pelvic abscesses s/p IR drainage -18 ml cloudy fluid removed-STREPTOCOCCUS ANGINOSUS -HX of small bowel resection 2005 Sepsis/Leukocytosis secondary to above-improving -Pt receiving Zosyn and Vanco RLQ pain-improving Sepsis- improving on abx Plan: At this time recommend continuing antibiotics per infectious disease. Will await their approval to start steroids. Once approved we will start patient on Solu-Medrol 40 mg IV once daily Full liquid diet-may advance as patient can tolerate Encourage OOB, up to chair, self-care, etc Avoid NSAIDs Supportive care per primary Will follow This plan was formulated in collaboration with Dr. Roberto MD Thank you for allowing me to participate in the care of your patient. Please feel free to contact me with any questions or concerns. [facility] Gastroenterology [facility] V[facility], SHOULDER JOINER - [employer] [phone] 05/08/2024 2:21 PM Estimated time of 36 mins reviewing chart, assessing patient and formulating plan of care This note was created with the assistance of a speech-recognition program. Although the intention is to generate a document that actually reflects the content of the visit, no guarantees can be provided that every mistake has been identified and corrected by editing. Attending Attestation: I have discussed the care of Francine Hobson and I have examined the patient myselft and taken ros and hpi , including pertinent history and exam findings, with the author of this note . I have reviewed the price elements of all parts of the encounter with the nurse practitioner/resident. I agree with the assessment, plan and orders as documented by the above health care provider with the following addendum More than 50% of the time was spent taking care of this patient in addition to the nurse practitioner time. That also included history taking follow-up physical examination and review of system. Images from the original note were not included. 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 S/P IR aspirate of 18 cc pus from abscess on 05-03-24 Crohn's Disease PMHx of abscess, last episode 2012 On upadacitinib (Rinvoq); known lapse in treatment due to access. Right ovarian cyst 05/01/24 PSHx: Ileo-cecal resection 2013 Recent infection, treated with Amoxicillin (completed 04/28/2024) Recommendations: Continue Zosyn. Start date 05-01-24. Continue until discharge Switch to po Augmentin 875 po BID at discharge x 2 weeks D/C Vancomycin Office f/up in [address] Scanlon for infection. Please call [phone] for appointment Medical Decision Making/Summary/Discussion: 024 Chron's GI holding off steroids till abscess improves - await ID clearance Pelvic abscess: CT 05/06 shows persistent multiloculated pelvic abscess No surgical intervention at this time. On zosyn Infection Control Recommendations [place] Precautions Antimicrobial Stewardship Recommendations Simplification of therapy Targeted therapy Coordination of Outpatient Care: Estimated Length of IV antimicrobials:TBD Patient will need Midline Catheter Insertion: TBD Patient will need PICC line Insertion:TBD Patient will need: Home IV , Infusion Center, SNF, LTAC: TBD Patient will need outpatient wound care: Chief complaint/reason for consultation: Crohns with gram positive cocci abscess. History of Present Illness: Francine Hobson is a 38 y.o.-year-old female who was initially admitted on 05/01/2024. Patient seen at the request of Dr. Martínez. INITIAL HISTORY: 05/01/24: Patient admitted to GI from ED 38yo female with a PMHx of Crohn's disease presents to the ED with diffuse abdominal pain that started earlier today. Pt reported having back pain, cough and body aches, believed to be unknown viral infection that was present for weeks. Cough was subsequently treated with amoxicillin. Patient has recurrent history or intra-abdominal abscesses. She states that she has significant pain with bowel movements. Experiencing nausea/vomiting. Denies melena, hematochezia, hematemesis. Patient denies any chest pain, shortness of breath, headache or dizziness. CT Abdomen/pelvis: Findings: Active crohn's disease with complex fluid collection associated with inflamed small bowel in the lower abdomen and pelvis and possible abscess, as described. Possible fistula versus focal area of narrowing in the sigmoid colon. No evidence for bowel obstruction. U/S Transvaginal Impression 1. Right ovarian 5.5 cm simple cystic structure most compatible with dominant follicle Patient started on IV Vanco and Zosyn 05/02/24: GI admitted to medicine Per GI: The abdominal pain has progressively worsened. She is having abdominal distention, nausea, vomiting inability to tolerate p.o. She also endorses difficulty urinating. Patient has history of Crohn's disease. She recently started seeing Dr. Maguire with gastroenterology. She last had a colonoscopy 1 year ago and was told it was relatively normal. CT abdomen/pelvis w/IV contrast: Findings: Unchanged appearance of active Crohn's disease with complex multiloculated abscess without definite fistula seen on this examination. Partial small bowel obstruction given dilated proximal bowel 05/03/24 Crohn's flareup with intra-abdominal abscesses. Appreciate GI, colorectal surgery, IR recommendations. CT guided abscess drainage Aspirate culture positive for Gram + cocci in chains 05/04/24 Patient continues on Vanco and Zosyn ID consulted due to gram positive cocci abscess. CURRENT EVALUATION- DAILY INTERVAL CHANGES 05/08/2024 BP 95/63 Pulse 65 Temp 98.2 F (36.8 C) (Oral) Resp 17 Ht 1.689 m (5' 6.5 ) Wt 55.4 kg (122 lb 2.2 oz) LMP 04/28/2024 SpO2 97% BMI 19.42 kg/m Afebrile, normotensive to hypotensive Vital signs stable Patient's pain is well controlled on medications. Pain of right lower thoracic, b/l lower abdomen. Pain with bowel movement. Denies n/v since yesterday. Currently NPO. Repeat CT 05/06 shows minimal improvement in abscesses. No evidence of bowel leak. GI would like to start steroids and monitor progress--hold until cleared by ID. IR has no currently plan for additional drainage. Medications reviewed: Continue Zosyn. Start date 05-01-24. Continue until discharge Switch to po Augmentin 875 po BID at discharge x 2 weeks D/C Vancomycin Blood culture negative 08/0605/01/24 Lactic acid 0.8-->0.9 WBC trending down 12.2-->7.6 Calprotectin stool pending. Cdiff negative Fecal occult: negative UA showed small leukocytes; all else negative Labs, X rays reviewed: 05/08/2024 with independent review of X rays I have independently reviewed/ordered the following labs: CBC with Differential: Recent Labs 05/07/24 1059 05/08/24 0603 WBC 8.4 7.6 HGB 10.4* 8.7* HCT 34.7* 29.4* PLT 409 337 LYMPHOPCT 12* 15* MONOPCT 5 6 EOSPCT 1 2 BMP: Recent Labs 05/05/24 2226 05/06/24 0855 NA -- 140 K 3.0* 4.2 CL -- 108* CO2 -- 24 BUN -- <2* CREATININE -- 0.5* Hepatic Function Panel: No results for input(s): LABALBU , BILIDIR , IBILI , BILITOT , ALKPHOS , ALT , AST in the last 72 hours. Invalid input(s): PROT No results for input(s): RPR in the last 72 hours. No results for input(s): HIV in the last 72 hours. No results for input(s): BC in the last 72 hours. Lab Results Component Value Date/Time BACTERIA None 05/01/2024 04:49 PM RBC 3.31 05/08/2024 06:03 AM WBC 7.6 05/08/2024 06:03 AM TURBIDITY Clear 05/01/2024 04:49 PM Lab Results Component Value Date/Time CREATININE 0.5 05/06/2024 08:55 AM GLUCOSE 99 05/06/2024 08:55 AM CRP 6.8 Cultures: Urine: Blood: Blood culture negative 08/0605/01/24 Body fluid: 05-03-24: Abdominal abscess: Strep anginosus Sputum : Wound: MRSA Nares: Imaging: CT Abdomen w/o Contrast: IMPRESSION: 1. Stable small bowel and colonic inflammatory changes and adynamic ileus. No evidence of a bowel leak. 2. Stable to slightly improved multiloculated pelvic abscesses Review of Systems: Pertinent review of symptoms listed in Initial Evaluation and daily interval evaluations sections Physical Examination : Patient Vitals for the past 8 hrs: BP Temp Temp src Pulse Resp SpO2 05/08/24 1015 95/63 -- -- -- -- -- 05/08/24 0817 -- -- -- -- 17 -- 05/08/24 0800 -- 98.2 F (36.8 C) Oral 65 16 97 % 05/08/24 0747 (!) 92/58 -- -- -- -- -- 05/08/24 0522 -- -- -- -- 16 -- 05/08/24 0452 -- -- -- -- 16 -- General Appearance: Awake, alert, pain distress. Head: Normocephalic, no trauma Eyes: Pupils equal, round, reactive to light and accommodation; extraocular movements intact; sclera anicteric; conjunctivae pink. No embolic phenomena. ENT: Oropharynx clear, without erythema, exudate, or thrush. No tenderness of sinuses. Mouth/throat: mucosa pink and moist. No lesions. Dentition in good repair. Neck:Supple, without lymphadenopathy. Thyroid normal, No bruits. Pulmonary/Chest: Clear to auscultation, without wheezes, rales, or rhonchi. No dullness to percussion. Cardiovascular: Regular rate and rhythm without murmurs, rubs, or gallops. Abdomen: Soft, diffuse abdominal pain concentrated periumbilical and b/l lower quadrants. All four Extremities: No cyanosis, clubbing, edema, or effusions. Neurologic: No gross sensory or motor deficits. Skin: Warm and dry with good turgor.No signs of peripheral arterial or venous insufficiency. No ulcerations. No open wounds. I have personally reviewed the past medical history, past surgical history, medications, social history, and family history, and I have updated the database accordingly. Past Medical History: Past Medical History: Diagnosis Date Crohn disease (HCC) Past Surgical History: Past Surgical History: Procedure Laterality Date BOWEL RESECTION SECTION CT ABSCESS DRAIN SUBCUTANEOUS 05/03/2024 CT ABSCESS DRAIN SUBCUTANEOUS 05/03/2024 Jose Manuel Torre MD [facility] CT SCAN TONSILLECTOMY AND ADENOIDECTOMY TUMOR REMOVAL Left left shoulder, benign WISDOM TOOTH EXTRACTION Medications: cyanocobalamin 1,000 mcg IntraMUSCular Once amitriptyline 25 mg Oral Nightly dicyclomine 10 mg Oral TID pantoprazole 40 mg Oral QAM AC citalopram 40 mg Oral Daily sodium chloride flush 5-40 mL IntraVENous 2 times per day piperacillin-tazobactam 3,375 mg IntraVENous Q8H Social History: Social History Socioeconomic History Marital status: Single Spouse name: Not on file Number of children: Not on file Years of education: Not on file Highest education level: Not on file Occupational History Not on file Tobacco Use Smoking status: Every Day Types: Cigarettes Smokeless tobacco: Never Vaping Use Vaping status: Never Used Substance and Sexual Activity Alcohol use: Yes Comment: occass. Drug use: Yes Types: Marijuana ([place]) Sexual activity: Yes Partners: Male Other Topics Concern Not on file Social History Narrative Not on file Social Determinants of Health Financial Resource Strain: Low Risk (11/24/2022) Received from [facility] Overall Financial Resource Strain (CARDIA) Difficulty of Paying Living Expenses: Not hard at all Food Insecurity: No Food Insecurity (05/03/2024) Hunger Vital Sign Worried About Running Out of Food in the Last Year: Never true Ran Out of Food in the Last Year: Never true Transportation Needs: No Transportation Needs (05/03/2024) PRAPARE - Transportation Lack of Transportation (Medical): No Lack of Transportation (Non-Medical): No Physical Activity: Not on file Stress: Not on file Social Connections: Unknown (06/03/2021) Received from [facility] Social Connections Frequency of Communication with Friends and Family: Not asked Frequency of Social Gatherings with Friends and Family: Not asked Intimate Partner Violence: Unknown (06/03/2021) Received from [facility] Intimate Partner Violence Fear of Current or Ex-Partner: Not asked Emotionally Abused: Not asked Physically Abused: Not asked Sexually Abused: Not asked Housing Stability: Low Risk (05/03/2024) Housing Stability Vital Sign Unable to Pay for Housing in the Last Year: No Number of Times Moved in the Last Year: 0 Homeless in the Last Year: No Family History: History reviewed. No pertinent family history. Allergies: Gluten, Motrin [ibuprofen], and Nsaids Medical Decision Making-Imaging: CT ABSCESS DRAINAGE Result Date: 05/04/2024 PROCEDURE: CT GUIDEDPELVIC FLUID NEEDLE PLACEMENT/ASPIRATION MODERATE CONSCIOUS SEDATION 05/03/2024 HISTORY: ORDERING SYSTEM PROVIDED HISTORY: Please perform CT guided IR aspiration of abdominal abscess TECHNOLOGIST PROVIDED HISTORY: Please perform CT guided IR aspiration of abdominal abscess Is the patient ?->No Reason for Exam: Pelvic abscess aspirate Multilobulated pelvic fluid collection, Crohn's disease SEDATION: Moderate sedation was ordered and supervised by the attending with physician [id number] monitoring. Medications were provided and recorded by Radiology nurses. DOSE: DOSE/DLP: 351.91 mGy-cm Dose modulation, iterative reconstruction, and/or weight based adjustment of the mA/kV was utilized to reduce the radiation dose to as low as reasonably achievable. TECHNIQUE/PROCEDURE DETAILS: Informed consent was obtained after a detailed explanation of the procedure including risks. [place] protocol was followed. Sterile gown, masks, hats, and gloves utilized for maximal sterile barrier. The patient was placed in the prone position on the CT couch. A legal services professional scan was performed of the pelvis. The previously identified pelvic fluid was re-identified, and contrast could still be seen within the rectum/sigmoid colon. Moderate conscious sedation was initiated. A site was selected for drainage in the left perirectal region using a transgluteal approach. The skin was prepped and draped in sterile manner, and 1% lidocaine was utilized for local anesthetic. A 5 Scottish 9 Yueh needle sheath was advanced under intermittent CT guidance into the fluid collection. Aspiration through this needle yielded 18 mL cloudy yellow fluid. This aspiration appear to collapse the locule of fluid in which the needle was placed, but at least one more loculation could still be seen within the field of view. The needle was removed. Blood loss was minimal. COMPLICATIONS: None immediately apparent. Technically successful CT-guided pelvic fluid collection aspiration using a left transgluteal approach. CT ABDOMEN PELVIS W IV CONTRAST Additional Contrast? Oral and Rectal Result Date: 05/02/2024 EXAMINATION: CT OF THE ABDOMEN AND PELVIS WITH CONTRAST 05/02/2024 9:43 am TECHNIQUE: CT of the abdomen and pelvis was performed with the administration of intravenous contrast. Multiplanar reformatted images are provided for review. Automated exposure control, iterative reconstruction, and/or weight based adjustment of the mA/kV was utilized to reduce the radiation dose to as low as reasonably achievable. COMPARISON: 05/01/2024 HISTORY: ORDERING SYSTEM PROVIDED HISTORY: chrons flare, pelvic abscess, concern for fistulous connection TECHNOLOGIST PROVIDED HISTORY: chrons flare, pelvic abscess, concern for fistulous connection Decision Support Exception - unselect if not a suspected or confirmed emergency medical condition->Emergency Medical Condition (MA) FINDINGS: Lower chest: The lung bases are clear. EG junction, stomach and duodenal sweep: Unremarkable Liver: Unremarkable Gallbladder: Unremarkable Biliary tree: Unremarkable Pancreas: Unremarkable for patient's age. Spleen: Unremarkable Kidneys and ureters: Unremarkable Adrenal glands: Unremarkable Retroperitoneal structures: Unremarkable Small bowel and colon: Dilated proximal small bowel loops containing contrast with long segment narrowing involving a loop of ileum seen in the mid abdomen with circumferential wall thickening consistent with active inflammation. This is partially surrounded by the multiloculated abscess seen in the right lower abdomen measuring 7.1 by 7.5 cm on image 123. This is contiguous with 2 additional large abscesses seen in the right adnexa measuring 6.3 x 5.4 cm and in the upper pelvis in the midline measuring 5.3 x 4.8 cm. Overall similar to recent prior examination. Prior ileo seek ectomy. There is contrast seen within the small bowel as well as within the rectosigmoid colon without definite fistula seen on today's examination. Fluid seen in the left adnexa surrounding the narrowed sigmoid colon without definite fistula is similar to prior examination. Appendix: Not seen Urinary bladder: Unremarkable Free fluid/air: None Lymph nodes: No enlarged lymph nodes Osseus structures: No destructive lesion Vasculature: No aneurysm Other: None 1. Unchanged appearance of active Crohn's disease with complex multiloculated abscess without definite fistula seen on this examination. Partial small bowel obstruction given dilated proximal bowel US DUP ABD PEL RETRO SCROT LIMITED Result Date: 05/01/2024 EXAMINATION: PELVIC ULTRASOUND 05/01/2024 TECHNIQUE: Transvaginal pelvic ultrasound was performed. COMPARISON: None . 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 0.7 cm Right Ovary: 5.2 x 5.5 x 7.0 cm Left Ovary: 2.0 x 2.1 x 4.4 cm Ultrasound Findings: Uterus: Uterus demonstrates normal myometrial echotexture. Endometrial stripe: Endometrial stripe is within normal limits. Right Ovary: There is a 5.4 cm anechoic cystic structure without complex feature or associated increased color Doppler flow. Left Ovary: Left ovary is within normal limits. Free Fluid: No evidence of free fluid. 1. Right ovarian 5.5 cm simple cystic structure most compatible with dominant follicle. 2. Otherwise, unremarkable pelvic ultrasound. RECOMMENDATIONS: Pathology: Right ovarian probable benign cyst measuring 5.4 cm.Recommend follow-up pelvic ultrasound in 3-6 months. US NON OB TRANSVAGINAL Result Date: 05/01/2024 EXAMINATION: PELVIC ULTRASOUND 05/01/2024 TECHNIQUE: Transvaginal pelvic ultrasound was performed. COMPARISON: None. 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 0.7 cm Right Ovary:5.2 x 5.5 x 7.0 cm Left Ovary: 2.0 x 2.1 x 4.4 cm Ultrasound Findings: Uterus: Uterus demonstrates normal myometrial echotexture. Endometrial stripe: Endometrial stripe is within normal limits. Right Ovary: There is a 5.4 cm anechoic cystic structure without complex feature or associated increased color Doppler flow. Left Ovary: Left ovary is within normal limits. Free Fluid: No evidence of free fluid. 1. Right ovarian 5.5 cm simple cystic structure most compatible with dominant follicle. 2. Otherwise, unremarkable pelvic ultrasound. RECOMMENDATIONS: Pathology: Right ovarian probable benign cyst measuring 5.4 cm.Recommend follow-up pelvic ultrasound in 3-[address] ABDOMEN PELVIS W IV CONTRAST Additional Contrast? None Result Date: 05/01/2024 EXAMINATION: CT OF THE ABDOMEN AND PELVIS WITH CONTRAST 05/01/2024 3:27 pm TECHNIQUE: CT of the abdomen and pelvis was performed with the administration of intravenous contrast. Multiplanar reformatted images are provided for review. Automated exposure control, iterative reconstruction, and/or weight based adjustment of the mA/kV was utilized to reduce the radiation dose to as low as reasonably achievable. COMPARISON: CT exams 01/25/2024 and 11/22/2023 HISTORY: ORDERING SYSTEM PROVIDED HISTORY: Hx of crohns, severe abdominal pain TECHNOLOGIST PROVIDED HISTORY: Hx of crohns, severe abdominal pain Decision Support Exception - unselect if not a suspected or confirmed emergency medical condition->Emergency Medical Condition (MA) FINDINGS: Lower Chest: No acute findings. Organs: Findings compatible with hepatic steatosis. No inflammatory change identified in the gallbladder fossa. The pancreas, spleen, adrenals and kidneys reveal no acute findings. GI/Bowel: Relatively diffuse bowel inflammation involving long segments of small bowel in the pelvis, distal colon and rectum are noted. There is somewhat ill-defined fluid and clustered small bowel in the central lower abdomen/pelvis on axial image 113 has the appearance of an inflammatory mass associated with active Crohn's disease. Suspected rim enhancing free fluid in the pelvis and suspected fistula tract versus narrowed segment of colon on axial image 135. A rim enhancing pocket of fluid measuring up to 5.2 x 4.2 cm on axial image 125 is a presumed abscess versus patulous small bowel loop. There is also a prominent fluid density in the right pelvis on axial image 136 that is unclear whether this is in additional fluid collection or prominent adnexal cyst. No evidence for bowel obstruction. No free air. Postoperative findings in the proximal colon again noted. Pelvis: Fluid and inflammatory change, as described above. No acute findings identified in the bladder. Peritoneum/Retroperitoneum: No free air. Rim enhancing fluid in the lower abdomen and pelvis, as above. Bones/Soft Tissues: No abnormality identified. *Unless otherwise specified, incidental findings do not require dedicated imaging follow-up. Findings compatible with active Crohn's disease with complex fluid collection associated with inflamed small bowel in the lower abdomen and pelvis and possible abscess, as described. Possible fistula versus focal area of narrowing in the sigmoid colon. No evidence for bowel obstruction. These findings could be further delineated with follow-up imaging utilizing oral contrast. Prominent cystic structure in the right pelvis may represent an adnexal cyst versus loculated fluid collection, for which attention to on follow-up imaging is recommended. Medical Decision Gqproy-Ysyclyhq-Mwgye: Results Procedure Component Value Units Date/Time C DIFF TOXIN/ANTIGEN [[id number]] Collected: 05/07/24 1425 Order Status: Completed Specimen: Stool Updated: 05/08/24 0940 Specimen Description .FECES C DIFF AG + TOXIN NEGATIVE Comment: No C. difficile antigen and Toxin Detected. Gastrointestinal Panel, Molecular [[id number]] Collected: 05/07/24 1145 Order Status: Sent Specimen: Stool Updated: 05/07/24 1145 C DIFF TOXIN/ANTIGEN [[id number]] Order Status: No result Specimen: Stool C DIFF TOXIN/ANTIGEN [[id number]] Order Status: Canceled Specimen: Stool Culture, Body Fluid (with Gram Stain) [[id number]] (Abnormal) Collected: 05/03/24 1805 Order Status: Completed Specimen: Body Fluid from Aspirate Updated: 05/06/24 1408 Specimen Description .ASPIRATE Special Requests Site: Body Fluid Direct Exam FEW NEUTROPHILS NO BACTERIA SEEN Gram stain made from cytocentrifuged specimen. Organisms and cells will be concentrated. Culture POSITIVE Fluid Culture DIRECT GRAM STAIN FROM BOTTLE: GRAM POSITIVE COCCI IN CHAINS VIRIDANS STREPTOCOCCUS GROUP Identified as : STREPTOCOCCUS ANGINOSUS Identification by MALDI-TOF (NOTE) Direct Gram Stain from bottle result called to and read back by:WAQAS De Guzman 05/04/24 1750 C DIFF TOXIN/ANTIGEN [[id number]] Order Status: No result Specimen: Stool Culture, Blood 1 [[id number]] Collected: 05/01/24 1617 Order Status: Completed Specimen: Blood Updated: 05/06/24 163 Specimen Description .BLOOD Special Requests RAC 5ML Culture NO GROWTH 5 DAYS Culture, Blood 1 [[id number]] Collected: 05/01/24 1550 Order Status: Completed Specimen: Blood Updated: 05/06/24 163 Specimen Description .BLOOD Special Requests LFT AC 10ML Culture NO GROWTH 5 DAYS Medical Decision Making-Other: Note: Thank you for allowing us to participate in the care of this patient. Please call with questions. Alona Millan, MS-3 Medical Student ATTESTATION: I have discussed the case, including pertinent history and exam findings with the medical practice administrator. I have evaluated the History, physical findings and pictures of the patient and the price elements of the encounter have been performed by me. I have reviewed the laboratory data, other diagnostic studies and discussed them with the medical practice administrator. I have updated the medical record where necessary. I agree with the assessment, plan and orders as documented by the medical practice administrator and I have modified them as necessary. Elements of Medical Decision Making: Note: I have independently performed the steps listed below as part of the medical decision making and evaluation. Examined and discussed with patient. Perirectal abscess Status post IR percutaneous drainage Underlying Crohn's disease History of recurrent abscesses Labs, medications, radiologic studies were reviewed with personal review of films Radiologic studies Lab work Cultures Abscess with gram-positive cocci in chains Large amounts of data were reviewed Patient with a previous history of Crohn's disease who presented with diffuse abdominal pain She has a history of recurrent intra-abdominal abscesses CT of the abdomen showed the presence of a complex fluid collection in the perirectal area with associated inflamed small bowel The patient underwent a percutaneous drainage by IR Gram stain shows the presence of gram-positive cocci in chains and pairs Patient was started on treatment with Zosyn Discussed with nursing Staff, life care planner Dr Mercado Infection Control and Prevention measures reviewed [place] precaution All prior entries were reviewed Colorectal surgery and internal medicine notes reviewed Administer medications as ordered Prognosis: Guarded Discharge planning reviewed Follow up as outpatient. Jaxson Scanlon MD. 05/08/2024, 10:59 AM Pager: - Office: Images from the original note were not included. [facility] Office: [phone] Marco Delarosa DO, Dominic Gonzalez DO, Clifton Blanc DO, Froylan Snowden DO, Paula Jensen MD, Radha Greer MD, Nitish Parra MD, Maya Hernández MD, Porfirio García MD, Norma Smith MD, Tanya Mercado MD, Eloy Alves DO, Heidi Roche MD, Arthur Schroeder MD, Jose Manuel Delarosa DO, Shikha Pastrana MD, Obed Lilly DO, Rosangela Koehler MD, Alysa De Santiago MD, Dianne Agudelo MD, Judith Nicole MD, London Morales MD, Gamal Granger MD, Abby Salgado MD, Nereyda Lucas MD, Dru Shannon MD, Shahid Reddy MD, Ashley Schaffer DO, Cruzito Holloway MD, Alix Acosta CNP, Shefali Hills CNP, Ashley Baker CNP, Muna Brandon DNP, Neida Mars CNP, Jigna De Dios CNP, Angelina Peguero CNP, Adwoa Lei, RONEL, Carmen Wray PA-C, Kathy Apple PA-C, Jaz Castaneda CNP, Robert Huertas CNP, Vanessa Saleh, RONEL, Josefina Higgins CNP, Lissett Root CNP, Lu Cooley, RONEL [facility] IN-PATIENT SERVICE [facility] Progress Note 05/08/2024 8:52 AM Name: Francine Hobson Acct: [id number] Room: 0343/0343-02 Day: 7 Admit Date: 05/01/2024 2:13 PM PCP: No primary care provider on file. Code Status: Full Code Subjective: C/C: Chief Complaint Patient presents with Abdominal Pain Interval History Status: not changed. Patient seen and evaluated in room, sitting in bed, continues to endorse abdominal pain with constipation as well as urinary symptoms Brief History: 38-year-old female past medical history of Crohn's disease, history of ileocecal resection, anxiety depression, vitamin D deficiency presents with abdominal pain. Concern for Crohn's with abscess. Colorectal surgery, GI, IR following patient. Underwent CT abdomen pelvis on 05/02/2024 No additional drainage from IR standpoint as the right lower quadrant is an ovarian follicle not an abscess Loculated abscesses are less than 3 cm which do not require drainage Steroids per GI Previous aspirate growing gram-positive cocci, patient remains on Zosyn Review of Systems: Constitutional: negative for chills, fevers, sweats Respiratory: negative for cough, dyspnea on exertion, shortness of breath, wheezing Cardiovascular: negative for chest pain, chest pressure/discomfort, lower extremity edema, palpitations Gastrointestinal: + abdominal pain, constipation, diarrhea, nausea, vomiting Neurological: negative for dizziness, headache Medications: Allergies: Allergies Allergen Reactions Gluten Motrin [Ibuprofen] Nsaids Current Meds: Scheduled Meds: amitriptyline 25 mg Oral Nightly dicyclomine 10 mg Oral TID pantoprazole 40 mg Oral QAM AC citalopram 40 mg Oral Daily sodium chloride flush 5-40 mL IntraVENous 2 times per day piperacillin-tazobactam 3,375 mg IntraVENous Q8H Continuous Infusions: sodium chloride 50 mL/hr at 05/08/24 0458 sodium chloride 10 mL/hr at 05/03/24 1836 PRN Meds: diazePAM, sodium chloride flush, sodium chloride, potassium chloride OR potassium alternative oral replacement OR potassium chloride, ondansetron OR ondansetron, polyethylene glycol, bisacodyl, acetaminophen OR acetaminophen, LORazepam, fentanNYL Data: Past Medical History: has a past medical history of Crohn disease (HCC). Social History: reports that she has been smoking cigarettes. She has never used smokeless tobacco. She reports current alcohol use. She reports current drug use. Drug: Marijuana ([place]). Family History: History reviewed. No pertinent family history. Vitals: BP (!) 92/58 Pulse 65 Temp 98.2 F (36.8 C) (Oral) Resp 17 Ht 1.689 m (5' 6.5 ) Wt 55.4 kg (122 lb 2.2 oz) LMP 04/28/2024 SpO2 97% BMI 19.42 kg/m Temp (24hrs), Av F (36.7 C), Min:97.7 F (36.5 C), Max:98.2 F (36.8 C) No results for input(s): POCGLU in the last 72 hours. I/O (24Hr): Intake/Output Summary (Last 24 hours) at 05/08/2024 0852 Last data filed at 05/08/2024 0458 Gross per 24 hour Intake 2016.93 ml Output 200 ml Net 1816.93 ml Labs: Hematology: Recent Labs 05/06/24 0855 05/07/24 1059 05/08/24 0603 WBC 9.6 8.4 7.6 RBC 3.48* 3.86* 3.31* HGB 9.4* 10.4* 8.7* HCT 30.8* 34.7* 29.4* MCV 88.5 89.9 88.8 MCH 27.0 26.9 26.3 MCHC 30.5 30.0 29.6 RDW 14.0 14.1 14.3 PLT 405 409 337 MPV 9.5 9.5 9.7 Chemistry: Recent Labs 05/05/24 2226 05/06/24 0855 NA -- 140 K 3.0* 4.2 CL -- 108* CO2 -- 24 GLUCOSE -- 99 BUN -- <2* CREATININE -- 0.5* ANIONGAP -- 8* LABGLOM -- >90 CALCIUM -- 8.8 No results for input(s): LABALBU , LABA1C , Y6VLMUE , FT4 , TSH , AST , ALT , LDH , GGT , ALKPHOS , BILITOT , BILIDIR , AMMONIA , AMYLASE , LIPASE , LACTATE , CHOL , HDL , CHOLHDLRATIO , TRIG , VLDL , LXO96GD , PHENYTOIN , PHENYF , URICACID , POCGLU in the last 72 hours. Invalid input(s): PROT , E9PNUEN , LABGGT , LDLCHOLESTEROL ABG:No results found for: POCPH , PHART , PH , POCPCO2 , RBA5MZT , PCO2 , POCPO2 , PO2ART , PO2 , POCHCO3 , JEN5OTD , HCO3 , NBEA , PBEA , BEART , BE , THGBART , THB , GVG5PAD , XWMP4YED , J7DUFKQF , O2SAT , FIO2 Lab Results Component Value Date/Time SPECIAL Site: Body Fluid 05/03/2024 06:05 PM Lab Results Component Value Date/Time CULTURE POSITIVE Fluid Culture 05/03/2024 06:05 PM CULTURE 05/03/2024 06:05 PM DIRECT GRAM STAIN FROM BOTTLE: GRAM POSITIVE COCCI IN CHAINS CULTURE (A) 05/03/2024 06:05 PM VIRIDANS STREPTOCOCCUS GROUP Identified as : STREPTOCOCCUS ANGINOSUS Identification by MALDI-TOF CULTURE 05/03/2024 06:05 PM (NOTE) Direct Gram Stain from bottle result called to and read back by:WAQAS De Guzman 05/04/24 4630 Radiology: CT ABDOMEN PELVIS WO CONTRAST Additional Contrast? Rectal Result Date: 05/06/2024 1. Stable small bowel and colonic inflammatory changes and adynamic ileus. No evidence of a bowel leak. 2. Stable to slightly improved multiloculated pelvic abscesses. CT ABSCESS DRAINAGE Result Date: 05/04/[address]-guided pelvic fluid collection aspiration using a left transgluteal approach. CT ABDOMEN PELVIS W IV CONTRAST Additional Contrast? Oral and Rectal Result Date: 05/02/2024 1. Unchanged appearance of active Crohn's disease with complex multiloculated abscess without definite fistula seen on this examination. Partial small bowel obstruction given dilated proximal bowel US DUP ABD PEL RETRO SCROT LIMITED Result Date: 05/01/2024 1. Right ovarian 5.5 cm simple cystic structure most compatible with dominant follicle. 2. Otherwise, unremarkable pelvic ultrasound. RECOMMENDATIONS: Pathology: Right ovarian probable benign cyst measuring 5.4 cm.Recommend follow-up pelvic ultrasound in 3-6 months. US NON OB TRANSVAGINAL Result Date: 05/01/2024 1. Right ovarian 5.5 cm simple cystic structure most compatible with dominant follicle. 2. Otherwise, unremarkable pelvic ultrasound. RECOMMENDATIONS: Pathology: Right ovarian probable benign cyst measuring 5.4 cm.Recommend follow-up pelvic ultrasound in 3-[address] ABDOMEN PELVIS W IV CONTRAST Additional Contrast? None Result Date: 05/01/2024 Findings compatible with active Crohn's disease with complex fluid collection associated with inflamed small bowel in the lower abdomen and pelvis and possible abscess, as described. Possible fistula versus focal area of narrowing in the sigmoid colon. No evidence for bowel obstruction. These findings could be further delineated with follow-up imaging utilizing oral contrast. Prominent cystic structure in the right pelvis may represent an adnexal cyst versus loculated fluid collection, for which attention to on follow-up imaging is recommended. Physical Examination: General appearance: alert, cooperative and no distress Mental Status: oriented to person, place and time and normal affect Lungs: clear to auscultation bilaterally, normal effort Heart: regular rate and rhythm, no murmur Abdomen: soft, +tender, nondistended, normal bowel sounds, no masses, hepatomegaly, splenomegaly Extremities: no edema, redness, tenderness in the calves Skin: no gross lesions, rashes, induration Assessment: Hospital Problems Last Modified POA * (Principal) Intra-abdominal abscess (HCC) 05/01/2024 Yes Crohn's disease with complication (HCC) 05/01/2024 Yes Crohn's colitis, other complication (HCC) 05/02/2024 Yes Partial small bowel obstruction (HCC) 05/02/2024 Yes Depression, unspecified 05/01/2024 Yes Generalized anxiety disorder with panic attacks 05/01/2024 Yes Generalized abdominal pain 05/02/2024 Yes Crohn's disease of colon with abscess (HCC) 05/02/2024 Yes Pelvic abscess in female 05/05/2024 Yes Abscess of intestine due to Crohn's disease (HCC) 05/05/2024 Yes Bandemia 05/06/2024 Yes Normocytic normochromic anemia 05/08/2024 Yes Plan: Crohn's disease with intra-abdominal abscess and partial SBO: GI following. Patient continues on Zosyn. CTAP on showing improvement in abscesses. Infectious disease continues to follow. GI recommending draining of abscesses greater than 3 cm before consideration of steroid therapy. IR drained pelvic abscess on 05/03/2024 without drain retention secondary to high risk of developing enterocutaneous fistula. IR again reconsulted for abscess drainage today, areas not amendable to drainage Depression with anxiety: Continue Elavil, Celexa, Valium, Ativan Bowel meds continue Protonix, Lovenox on hold secondary to upcoming procedure. Continue SCDs Normocytic normochromic anemia: Check iron studies-SUE and vitamin B12 deficient, supplements ordered PT, OT Muna Brandon APRN - GEOPHYSICAL DRAFTER 05/08/2024 8:52 AM Associated attestation - Tanya Mercado MD - 05/08/2024 3:43 PM EST Attending Supervising Physician s Attestation Statement I have seen and examined Francine Hobson and the price elements of all parts of the encounter have been performed by me. I agree with the assessment, plan and orders as documented. I discussed the findings and plans with the resident physician and agree as documented in their note . In addition to the pertinent positives and negatives as stated within HPI and the review of systems as documented in the notes, all other systems were reviewed when able to and are reported negative. Additional Comments: Appreciate GI adverse disease recommendations. Fortunately does not appear that lesions are amenable to drainage. Plan for Augmentin on discharge for 2 weeks. Plan to advance diet. Colorectal Surgery: Daily Progress Note PATIENT NAME: Francine Hobson TODAY'S DATE: 05/08/2024 SUBJECTIVE: Patient was seen and evaluated at bedside. Afebrile, vital signs normal limits. Patient admits to continued right lower quadrant pain that is mildly improved since yesterday. States that she had a black bowel movement yesterday, unchanged in consistency since admission. States that she does not want to eat very much food because she does not want to have a bowel movement because that causes her pain. Fecal occult blood test yesterday was negative. Hemoglobin 8.7 from 10.4 yesterday. Continue to monitor abdominal exam. Interventional radiology read CT scan from May 06 showing reduction of fluid collections, planning conservative management at this time. White count normal today. States that she has difficulty tolerating solid or fatty foods which make her nauseous and that she would like to continue eating jello and semi-solid food for the time being Colorectal surgery will sign off at this time. Please reach out with any other questions OBJECTIVE: VITALS: BP (!) 92/58 Pulse 65 Temp 98.2 F (36.8 C) (Oral) Resp 17 Ht 1.689 m (5' 6.5 ) Wt 55.4 kg (122 lb 2.2 oz) LMP 04/28/2024 SpO2 97% BMI 19.42 kg/m INTAKE/OUTPUT: Intake/Output Summary (Last 24 hours) at 05/08/2024 0913 Last data filed at 05/08/2024 0458 Gross per 24 hour Intake 2016.93 ml Output 200 ml Net 1816.93 ml PHYSICAL EXAM: CONSTITUTIONAL: awake, alert, normal weight, patient in mild amount of pain HEENT: Normocephalic/atraumatic, without obvious abnormality. NECK: Supple, symmetrical, trachea midline CARDIOVASCULAR: Regular rate and rhythm LUNGS: equal chest rise and fall, no increased WOB, ABDOMEN: Soft, nondistended, right upper quadrant and right lower quadrant guarding and tenderness. MUSCULOSKELETAL: Muscle strength intact in all extremities bilaterally. NEUROLOGIC: Gross motor intact without focal weakness. SKIN: No cyanosis, rashes, or edema noted. Orientation: oriented to person, place, and time Data: CBC with Differential: Lab Results Component Value Date/Time WBC 7.6 05/08/2024 06:03 AM RBC 3.31 05/08/2024 06:03 AM HGB 8.7 05/08/2024 06:03 AM HCT 29.4 05/08/2024 06:03 AM PLT 337 05/08/2024 06:03 AM MCV 88.8 05/08/2024 06:03 AM MCH 26.3 05/08/2024 06:03 AM MCHC 29.6 05/08/2024 06:03 AM RDW 14.3 05/08/2024 06:03 AM LYMPHOPCT 15 05/08/2024 06:03 AM MONOPCT 6 05/08/2024 06:03 AM EOSPCT 2 05/08/2024 06:03 AM BASOPCT 0 05/08/2024 06:03 AM MONOSABS 0.49 05/08/2024 06:03 AM LYMPHSABS 1.13 05/08/2024 06:03 AM EOSABS 0.14 05/08/2024 06:03 AM BASOSABS 0.03 05/08/2024 06:03 AM BMP: Lab Results Component Value Date/Time NA 140 05/06/2024 08:55 AM K 4.2 05/06/2024 08:55 AM CL 108 05/06/2024 08:55 AM CO2 24 05/06/2024 08:55 AM BUN <2 05/06/2024 08:55 AM CREATININE 0.5 05/06/2024 08:55 AM CALCIUM 8.8 05/06/2024 08:55 AM LABGLOM >90 05/06/2024 08:55 AM LABGLOM >60 12/12/2022 03:33 AM GLUCOSE 99 05/06/2024 08:55 AM Radiology Review: CT ABDOMEN PELVIS WO CONTRAST Additional Contrast? Rectal Result Date: 05/06/2024 1. Stable small bowel and colonic inflammatory changes and adynamic ileus. No evidence of a bowel leak. 2. Stable to slightly improved multiloculated pelvic abscesses. CT ABSCESS DRAINAGE Result Date: 05/04/2024 PROCEDURE: CT GUIDEDPELVIC FLUID NEEDLE PLACEMENT/ASPIRATION MODERATE CONSCIOUS SEDATION 05/03/2024 HISTORY: ORDERING SYSTEM PROVIDED HISTORY: Please perform CT guided IR aspiration of abdominal abscess TECHNOLOGIST PROVIDED HISTORY: Please perform CT guided IR aspiration of abdominal abscess Is the patient ?->No Reason for Exam: Pelvic abscess aspirate Multilobulated pelvic fluid collection, Crohn's disease SEDATION: Moderate sedation was ordered and supervised by the attending with physician [id number] monitoring. Medications were provided and recorded by Radiology nurses. DOSE: DOSE/DLP: 351.91 mGy-cm Dose modulation, iterative reconstruction, and/or weight based adjustment of the mA/kV was utilized to reduce the radiation dose to as low as reasonably achievable. TECHNIQUE/PROCEDURE DETAILS: Informed consent was obtained after a detailed explanation of the procedure including risks. Rogerson protocol was followed. Sterile gown, masks, hats, and gloves utilized for maximal sterile barrier. The patient was placed in the prone position on the CT couch. A legal services professional scan was performed of the pelvis. The previously identified pelvic fluid was re-identified, and contrast could still be seen within the rectum/sigmoid colon. Moderate conscious sedation was initiated. A site was selected for drainage in the left perirectal region using a transgluteal approach. The skin was prepped and draped in sterile manner, and 1% lidocaine was utilized for local anesthetic. A 5 Scottish 9 Yueh needle sheath was advanced under intermittent CT guidance into the fluid collection. Aspiration through this needle yielded 18 mL cloudy yellow fluid. This aspiration appear to collapse the locule of fluid in which the needle was placed, but at least one more loculation could still be seen within the field of view. The needle was removed. Blood loss was minimal. COMPLICATIONS: None immediately apparent. Technically successful CT-guided pelvic fluid collection aspiration using a left transgluteal approach. ASSESSMENT: Active Hospital Problems Diagnosis Date Noted Normocytic normochromic anemia [D64.9] 05/08/2024 Bandemia [D72.825] 05/06/2024 Pelvic abscess in female [N73.9] 05/05/2024 Abscess of intestine due to Crohn's disease (HCC) [K50.914] 05/05/2024 Generalized abdominal pain [R10.84] 05/02/2024 Crohn's disease of colon with abscess (HCC) [K50.114] 05/02/2024 Intra-abdominal abscess (HCC) [K65.1] 05/01/2024 Crohn's colitis, other complication (HCC) [K50.118] 01/26/2024 Partial small bowel obstruction (HCC) [K56.600] 01/26/2024 Crohn's disease with complication (HCC) [K50.919] 12/12/2022 Generalized anxiety disorder with panic attacks [F41.1, F41.0] 11/24/2022 Depression, unspecified [F32.A] 11/24/2022 38-year-old female with Crohn's flare, pelvic abscesses IR guided aspiration showed Streptococcus viridans group. Plan: -Patient seen and evaluated. History, physical exam, laboratory, and radiographic findings reviewed and discussed with attending. -Continue IV zosyn -Monitor trend of WBC -Monitor electrolytes. Recommend K >4, Mag >2 -Appreciate GI recommendations. -Pain and nausea control as needed -Monitor vitals per unit standard -Encourage I-S, deep breathing, and cough -Diet: Continue regular diet. -Remainder of plan and disposition per primary team. -Interventional radiology will continue conservative management, CT from May 06 was reviewed -Colorectal surgery will sign off at this time, please reach out with any questions I Dr. Katz saw and examined the patient. I have edited the above and agree with the above. Hemant Katz Colorectal Surgery [facility] Gastroenterology Progress Note Francine Hobson is a 38 y.o. female patient. Hospitalization Day:6 Chief consult reason: Crohn's disease Subjective: Pt seen and examined. Patient continues on Zosyn, leucocytosis improving Appears stronger today-more talkative/interactive Repeat CT yesterday shows minimal improvement in abscesses. And upper pelvis, multi septated complex abscess with internal gas foci measures 5.5 x 7.3 cm compared to 7.1 x 7.5 cm. Right hemipelvis complex loculated fluid collection currently measuring 5.5 x 7.8 cm compared to previously 5.7 x 8.6 cm. Additional fluid collection 2.0 cm in thickness. Right inferior gluteal subcutaneous oval fluid collection at 1.9 cm-possible sebaceous cyst No leukocytosis Patient is trying to increase oral intake with ensures Denies rectal bleeding VITALS: BP 96/61 Pulse 65 Temp 98.1 F (36.7 C) (Oral) Resp 19 Ht 1.689 m (5' 6.5 ) Wt 55.4 kg (122 lb 2.2 oz) LMP 04/28/2024 SpO2 99% BMI 19.42 kg/m TEMPERATURE: Current - Temp: 98.1 F (36.7 C); Max - Temp Av F (36.7 C) Min: 97.9 F (36.6 C) Max: 98.1 F (36.7 C) Physical Assessment: General appearance: alert, cooperative and mild pain distress Mental Status: oriented to person, place and time and normal affect Lungs: clear to auscultation bilaterally, normal effort Heart: regular rate and rhythm, no murmur Abdomen: soft, slightly tender, nondistended, normal bowel sounds, no masses, hepatomegaly, splenomegaly Extremities: no edema, redness, tenderness in the calves Skin: no gross lesions, rashes, induration Data Review: Labs and Imaging: CBC: Recent Labs 05/05/24 0753 05/06/24 0855 05/07/24 1059 WBC 12.2* 9.6 8.4 HGB 9.8* 9.4* 10.4* MCV 87.8 88.5 89.9 RDW 14.0 14.0 14.1 PLT 366 405 409 ANEMIA STUDIES: No results for input(s): TIBC , FERRITIN , STSANYRS96 , FOLATE , OCCULTBLD in the last 72 hours. Invalid input(s): LABIRON BMP: Recent Labs 05/05/24 0753 05/05/24 2226 05/06/24 0855 NA 138 -- 140 K 3.2* 3.0* 4.2 CL 108* -- 108* CO2 19* -- 24 BUN <2* -- <2* CREATININE 0.5* -- 0.5* GLUCOSE 113* -- 99 CALCIUM 8.6 -- 8.8 LFTS: No results for input(s): ALKPHOS , ALT , AST , BILITOT , BILIDIR , LABALBU in the last 72 hours. Other pertinent labs: Gastroenterology impression: Crohn's disease with pelvic abscesses s/p IR drainage -18 ml cloudy fluid removed-STREPTOCOCCUS ANGINOSUS -HX of small bowel resection 2006 Sepsis/Leukocytosis secondary to above-improving -Pt receiving Zosyn and Vanco RLQ pain-improving Sepsis- improving on abx -Ideally we would like to start steroids with Solumedrol 40 mg IV daily and monitor progress. But with current abscess, infection, etc-will wait until cleared per ID and after review of pending CT, recommend drainage of abscess more than 3 cm Plan: Recommend continue antibiotics, Appreciate recs and input per ID, IR, CRS. Recommend drainage of abscess more than 3 cm before consideration of immunosuppression Diet per surgery Supportive care per primary Will follow This plan was formulated in collaboration with Dr. Roberto MD Thank you for allowing me to participate in the care of your patient. Please feel free to contact me with any questions or concerns. [facility] Leroy De La Vega, SHOULDER JOINER - BROACH TROUBLE SHOOTER [phone] 05/07/2024 3:16 PM Estimated time of 35 mins reviewing chart, assessing patient and formulating plan of care This note was created with the assistance of a speech-recognition program. Although the intention is to generate a document that actually reflects the content of the visit, no guarantees can be provided that every mistake has been identified and corrected by editing. Attending Attestation: I have discussed the care of Francine Hobson and I have examined the patient myselft and taken ros and hpi , including pertinent history and exam findings, with the author of this note . I have reviewed the price elements of all parts of the encounter with the nurse practitioner/resident. I agree with the assessment, plan and orders as documented by the above health care provider with the following addendum More than 50% of the time was spent taking care of this patient in addition to the nurse practitioner time. That also included history taking follow-up physical examination and review of system. Pt cdiff ordered since admit. Does not meet criteria on paper. Discussed with dr mercado who has already spoken with treatment supervisor Rukhsana about necessity for cdiff to be ruled out. Colorectal Surgery: Daily Progress Note PATIENT NAME: Francine Hobson TODAY'S DATE: 05/07/2024, 7:55 PM SUBJECTIVE: Patient was seen and evaluated at bedside. Afebrile, vital signs normal limits. Patient admits to slightly increased abdominal pain in the right lower quadrant, patient otherwise has mild abdominal pain in other quadrants. States that she had a bowel movement yesterday. States that she does not want to eat very much food because she does not want to have a bowel movement because that causes her pain. She says that she has had black bowel movements since admission, will follow-up fecal occult blood test. Continue to monitor abdominal exam. White count normal today. OBJECTIVE: VITALS: BP 125/83 Pulse 84 Temp 98.4 F (36.9 C) (Oral) Resp 16 Ht 1.689 m (5' 6.5 ) Wt 55.4 kg (122 lb 2.2 oz) LMP 04/28/2024 SpO2 96% BMI 19.42 kg/m INTAKE/OUTPUT: Intake/Output Summary (Last 24 hours) at 05/07/20241954 Last data filed at 05/07/2024 1852 Gross per 24 hour Intake 1148.41 ml Output 200 ml Net 948.41 ml PHYSICAL EXAM: CONSTITUTIONAL: awake, alert, normal weight, patient in mild amount of pain HEENT: Normocephalic/atraumatic, without obvious abnormality. NECK: Supple, symmetrical, trachea midline CARDIOVASCULAR: Regular rate and rhythm LUNGS: equal chest rise and fall, no increased WOB, ABDOMEN: Distended, moderately tender in the suprapubic region, no rebound tenderness MUSCULOSKELETAL: Muscle strength intact in all extremities bilaterally. NEUROLOGIC: Gross motor intact without focal weakness. SKIN: No cyanosis, rashes, or edema noted. Orientation: oriented to person, place, and time Data: CBC with Differential: Lab Results Component Value Date/Time WBC 8.4 05/07/2024 10:59 AM RBC 3.86 05/07/2024 10:59 AM HGB 10.4 05/07/2024 10:59 AM HCT 34.7 05/07/2024 10:59 AM PLT 409 05/07/2024 10:59 AM MCV 89.9 05/07/2024 10:59 AM MCH 26.9 05/07/2024 10:59 AM MCHC 30.0 05/07/2024 10:59 AM RDW 14.1 05/07/2024 10:59 AM LYMPHOPCT 12 05/07/2024 10:59 AM MONOPCT 5 05/07/2024 10:59 AM EOSPCT 1 05/07/2024 10:59 AM BASOPCT 0 05/07/2024 10:59 AM MONOSABS 0.38 05/07/2024 10:59 AM LYMPHSABS 1.04 05/07/2024 10:59 AM EOSABS 0.08 05/07/2024 10:59 AM BASOSABS 0.03 05/07/2024 10:59 AM BMP: Lab Results Component Value Date/Time NA 140 05/06/2024 08:55 AM K 4.2 05/06/2024 08:55 AM CL 108 05/06/2024 08:55 AM CO2 24 05/06/2024 08:55 AM BUN <2 05/06/2024 08:55 AM CREATININE 0.5 05/06/2024 08:55 AM CALCIUM 8.8 05/06/2024 08:55 AM LABGLOM >90 05/06/2024 08:55 AM LABGLOM >60 12/12/2022 03:33 AM GLUCOSE 99 05/06/2024 08:55 AM Radiology Review: CT ABDOMEN PELVIS WO CONTRAST Additional Contrast? Rectal Result Date: 05/06/2024 1. Stable small bowel and colonic inflammatory changes and adynamic ileus. No evidence of a bowel leak. 2. Stable to slightly improved multiloculated pelvic abscesses. CT ABSCESS DRAINAGE Result Date: 05/04/2024 PROCEDURE: CT GUIDEDPELVIC FLUID NEEDLE PLACEMENT/ASPIRATION MODERATE CONSCIOUS SEDATION 05/03/2024 HISTORY: ORDERING SYSTEM PROVIDED HISTORY: Please perform CT guided IR aspiration of abdominal abscess TECHNOLOGIST PROVIDED HISTORY: Please perform CT guided IR aspiration of abdominal abscess Is the patient ?->No Reason for Exam: Pelvic abscess aspirate Multilobulated pelvic fluid collection, Crohn's disease SEDATION: Moderate sedation was ordered and supervised by the attending with physician [id number] monitoring. Medications were provided and recorded by Radiology nurses. DOSE: DOSE/DLP: 351.91 mGy-cm Dose modulation, iterative reconstruction, and/or weight based adjustment of the mA/kV was utilized to reduce the radiation dose to as low as reasonably achievable. TECHNIQUE/PROCEDURE DETAILS: Informed consent was obtained after a detailed explanation of the procedure including risks. Rogerson protocol was followed. Sterile gown, masks, hats, and gloves utilized for maximal sterile barrier. The patient was placed in the prone position on the CT couch. A legal services professional scan was performed of the pelvis. The previously identified pelvic fluid was re-identified, and contrast could still be seen within the rectum/sigmoid colon. Moderate conscious sedation was initiated. A site was selected for drainage in the left perirectal region using a transgluteal approach. The skin was prepped and draped in sterile manner, and 1% lidocaine was utilized for local anesthetic. A 5 Scottish 9 Yueh needle sheath was advanced under intermittent CT guidance into the fluid collection. Aspiration through this needle yielded 18 mL cloudy yellow fluid. This aspiration appear to collapse the locule of fluid in which the needle was placed, but at least one more loculation could still be seen within the field of view. The needle was removed. Blood loss was minimal. COMPLICATIONS: None immediately apparent. Technically successful CT-guided pelvic fluid collection aspiration using a left transgluteal approach. ASSESSMENT: Active Hospital Problems Diagnosis Date Noted Bandemia [D72.825] 05/06/2024 Pelvic abscess in female [N73.9] 05/05/2024 Abscess of intestine due to Crohn's disease (HCC) [K50.914] 05/05/2024 Generalized abdominal pain [R10.84] 05/02/2024 Crohn's disease of colon with abscess (HCC) [K50.114] 05/02/2024 Intra-abdominal abscess (HCC) [K65.1] 05/01/2024 Crohn's colitis, other complication (HCC) [K50.118] 01/26/2024 Partial small bowel obstruction (HCC) [K56.600] 01/26/2024 Crohn's disease with complication (HCC) [K50.919] 12/12/2022 Generalized anxiety disorder with panic attacks [F41.1, F41.0] 11/24/2022 Depression, unspecified [F32.A] 11/24/2022 38-year-old female with Crohn's flare, pelvic abscesses IR guided aspiration showed Streptococcus viridans group. Plan: -Patient seen and evaluated. History, physical exam, laboratory, and radiographic findings reviewed and discussed with attending. -Continue IV antibiotics -Monitor trend of WBC -Monitor electrolytes. Recommend K >4, Mag >2 -Appreciate GI recommendations. -Pain and nausea control as needed -Monitor vitals per unit standard -Encourage I-S, deep breathing, and cough -Diet: Continue regular diet. -Remainder of plan and disposition per primary team. I Dr. Katz saw and examined the patient. I have edited the above and agree with the above. Hemant Katz Colorectal Surgery Images from the original note were not included. [facility] Office: [phone] Marco Delarosa DO, Dominic Gonzalez DO, Clifton Blanc DO, Froylan Snowden DO, Paula Jensen MD, Radha Greer MD, Nitish Parra MD, Maya Hernández MD, Porfirio García MD, Norma Smith MD, Tanya Mercado MD, Eloy Alves DO, Heidi Roche MD, Arthur Schroeder MD, Jose Manuel Delarosa DO, Shikha Pastrana MD, Obed Lilly DO, Rosangela Koehler MD, Alysa De Santiago MD, Dianne Agudelo MD, Judith Nicole MD, London Morales MD, Gamal Granger MD, Abby Salgado MD, Nereyda Lucas MD, Dru Shannon MD, Shahid Reddy MD, Ashley Schaffer DO, Cruzito Holloway MD, Alix Acosta CNP, Shefali Hills CNP, Ashley Baker CNP, Muna Brandon DNP, Neida Mars CNP, Jigna De Dios CNP, Angelina Peguero CNP, Adwoa Lei CNP, Carmen Wray PA-C, Kathy Apple PA-C, Jaz Castaneda CNP, Robert Huertas CNP, Vanessa Saleh CNP, Josefina Higgins CNP, Lissett Root CNP, Lu Cooley CNP [facility] IN-PATIENT SERVICE [facility] Progress Note 05/07/2024 7:44 AM Name: Francine Hobson Acct: [id number] Room: 0343/0343-02 Day: 6 Admit Date: 05/01/2024 2:13 PM PCP: No primary care provider on file. Code Status: Full Code Subjective: C/C: Chief Complaint Patient presents with Abdominal Pain Interval History Status: improved. Seen and examined at bedside. Feeling better. Looks better. Had some nausea after contrast yesterday--none since. Tolerating regular diet this morning. Encourage supplements. Decreased diarrhea. Persistent pain--improved but feeling increased pain/pressure with bowel movements. CT abdomen pelvis with oral and rectal contrast completed 05/06. Continues to demonstrate stable to slightly improved multiloculated pelvis abscesses. Remains on Zosyn. Stable inflammatory changes. VS and labs reviewed. Afebrile. Brief History: 38-year-old female past medical history of Crohn's disease, history of ileocecal resection, anxiety depression, vitamin D deficiency presents with abdominal pain. Concern for Crohn's with abscess. Colorectal surgery, GI, IR following patient. Underwent CT abdomen pelvis on 05/02/2024. 05/03/24: Abscess aspiration in IR Successful aspiration of pelvic abscess. Approximately 18 mL of cloudy yellow fluid were obtained. No abscess drain was left in place due to high risk of developing enterocutaneous fistula 05/05/2024: Abscess growing gram-positive cocci. 05/06/2024: CT abdomen/pelvis with contrast. Impression: 1. Stable small bowel and colonic inflammatory changes and adynamic ileus. No evidence of a bowel leak. 2. Stable to slightly improved multiloculated pelvic abscesses Review of Systems: Constitutional: negative for chills, fevers, sweats Respiratory: negative for cough, dyspnea on exertion, shortness of breath, wheezing Cardiovascular: negative for chest pain, chest pressure/discomfort, lower extremity edema, palpitations Gastrointestinal: negative for abdominal pain, constipation, diarrhea, nausea, vomiting Neurological: negative for dizziness, headache Medications: Allergies: Allergies Allergen Reactions Motrin [Ibuprofen] Nsaids Current Meds: Scheduled Meds: pantoprazole 40 mg Oral QAM AC citalopram 40 mg Oral Daily sodium chloride flush 5-40 mL IntraVENous 2 times per day piperacillin-tazobactam 3,375 mg IntraVENous Q8H Continuous Infusions: sodium chloride 50 mL/hr at 05/07/24 0153 sodium chloride 10 mL/hr at 05/03/24 1836 PRN Meds: diazePAM, dicyclomine, sodium chloride flush, sodium chloride, potassium chloride OR potassium alternative oral replacement OR potassium chloride, ondansetron OR ondansetron, polyethylene glycol, bisacodyl, acetaminophen OR acetaminophen, LORazepam, fentanNYL Data: Past Medical History: has a past medical history of Crohn disease (HCC). Social History: reports that she has been smoking cigarettes. She has never used smokeless tobacco. She reports current alcohol use. She reports current drug use. Drug: Marijuana ([place]). Family History: History reviewed. No pertinent family history. Vitals: BP 97/64 Pulse 69 Temp 97.9 F (36.6 C) (Oral) Resp 17 Ht 1.689 m (5' 6.5 ) Wt 55.4 kg (122 lb 2.2 oz) LMP 04/28/2024 SpO2 (!) 82% BMI 19.42 kg/m Temp (24hrs), Av.9 F (36.6 C), Min:97.8 F (36.6 C), Max:97.9 F (36.6 C) No results for input(s): POCGLU in the last 72 hours. I/O (24Hr): Intake/Output Summary (Last 24 hours) at 05/07/2024 0744 Last data filed at 05/06/20242029 Gross per 24 hour Intake 928.64 ml Output -- Net 928.64 ml Labs: Hematology: Recent Labs 05/05/24 0753 05/06/24 0855 WBC 12.2* 9.6 RBC 3.69* 3.48* HGB 9.8* 9.4* HCT 32.4* 30.8* MCV 87.8 88.5 MCH 26.6 27.0 MCHC 30.2 30.5 RDW 14.0 14.0 PLT 366 405 MPV 9.2 9.5 Chemistry: Recent Labs 05/04/24 1525 05/05/24 0753 05/05/24 2226 05/06/24 0855 NA -- 138 -- 140 K -- 3.2* 3.0* 4.2 CL -- 108* -- 108* CO2 -- 19* -- 24 GLUCOSE -- 113* -- 99 BUN -- <2* -- <2* CREATININE -- 0.5* -- 0.5* ANIONGAP -- 11 -- 8* LABGLOM -- >90 -- >90 CALCIUM -- 8.6 -- 8.8 PHOS -- 2.4* -- -- LACTACIDWB 0.9 -- -- -- No results for input(s): LABALBU , LABA1C , R1DZCER , FT4 , TSH , AST , ALT , LDH , GGT , ALKPHOS , BILITOT , BILIDIR , AMMONIA , AMYLASE , LIPASE , LACTATE , CHOL , HDL , CHOLHDLRATIO , TRIG , VLDL , DAH47DO , PHENYTOIN , PHENYF , URICACID , POCGLU in the last 72 hours. Invalid input(s): PROT , U2ENSYE , LABGGT , LDLCHOLESTEROL ABG:No results found for: POCPH , PHART , PH , POCPCO2 , BXF1SFS , PCO2 , POCPO2 , PO2ART , PO2 , POCHCO3 , ZAS6FWQ , HCO3 , NBEA , PBEA , BEART , BE , THGBART , THB , [id number] , [id number] , [id number] , O2SAT , FIO2 Lab Results Component Value Date/Time SPECIAL Site: Body Fluid 05/03/2024 06:05 PM Lab Results Component Value Date/Time CULTURE POSITIVE Fluid Culture 05/03/2024 06:05 PM CULTURE 05/03/2024 06:05 PM DIRECT GRAM STAIN FROM BOTTLE: GRAM POSITIVE COCCI IN CHAINS CULTURE (A) 05/03/2024 06:05 PM VIRIDANS STREPTOCOCCUS GROUP Identified as : STREPTOCOCCUS ANGINOSUS Identification by MALDI-TOF CULTURE 05/03/2024 06:05 PM (NOTE) Direct Gram Stain from bottle result called to and read back by:WAQAS De Guzman 05/04/24 2360 Radiology: CT ABDOMEN PELVIS WO CONTRAST Additional Contrast? Rectal Result Date: 05/06/2024 1. Stable small bowel and colonic inflammatory changes and adynamic ileus. No evidence of a bowel leak. 2. Stable to slightly improved multiloculated pelvic abscesses. CT ABSCESS DRAINAGE Result Date: 05/04/[address]-guided pelvic fluid collection aspiration using a left transgluteal approach. CT ABDOMEN PELVIS W IV CONTRAST Additional Contrast? Oral and Rectal Result Date: 05/02/2024 1. Unchanged appearance of active Crohn's disease with complex multiloculated abscess without definite fistula seen on this examination. Partial small bowel obstruction given dilated proximal bowel US DUP ABD PEL RETRO SCROT LIMITED Result Date: 05/01/2024 1. Right ovarian 5.5 cm simple cystic structure most compatible with dominant follicle. 2. Otherwise, unremarkable pelvic ultrasound. RECOMMENDATIONS: Pathology: Right ovarian probable benign cyst measuring 5.4 cm.Recommend follow-up pelvic ultrasound in 3-6 months. US NON OB TRANSVAGINAL Result Date: 05/01/2024 1. Right ovarian 5.5 cm simple cystic structure most compatible with dominant follicle. 2. Otherwise, unremarkable pelvic ultrasound. RECOMMENDATIONS: Pathology: Right ovarian probable benign cyst measuring 5.4 cm.Recommend follow-up pelvic ultrasound in 3-[address] ABDOMEN PELVIS W IV CONTRAST Additional Contrast? None Result Date: 05/01/2024 Findings compatible with active Crohn's disease with complex fluid collection associated with inflamed small bowel in the lower abdomen and pelvis and possible abscess, as described. Possible fistula versus focal area of narrowing in the sigmoid colon. No evidence for bowel obstruction. These findings could be further delineated with follow-up imaging utilizing oral contrast. Prominent cystic structure in the right pelvis may represent an adnexal cyst versus loculated fluid collection, for which attention to on follow-up imaging is recommended. Physical Examination: General appearance: alert, cooperative and no distress Mental Status: oriented to person, place and time and normal affect Lungs: clear to auscultation bilaterally, normal effort Heart: regular rate and rhythm, no murmur Abdomen: soft, nontender, nondistended, normal bowel sounds, no masses, hepatomegaly, splenomegaly Extremities: no edema, redness, tenderness in the calves Skin: no gross lesions, rashes, induration Assessment: Hospital Problems Last Modified POA * (Principal) Intra-abdominal abscess (HCC) 05/01/2024 Yes Crohn's disease with complication (HCC) 05/01/2024 Yes Crohn's colitis, other complication (HCC) 05/02/2024 Yes Partial small bowel obstruction (HCC) 05/02/2024 Yes Depression, unspecified 05/01/2024 Yes Generalized anxiety disorder with panic attacks 05/01/2024 Yes Generalized abdominal pain 05/02/2024 Yes Crohn's disease of colon with abscess (HCC) 05/02/2024 Yes Pelvic abscess in female 05/05/2024 Yes Abscess of intestine due to Crohn's disease (HCC) 05/05/2024 Yes Bandemia 05/06/2024 Yes Plan: Intra-abdominal abscess with Crohn's flare: Colorectal surgery and GI following. Aspiration of pelvic abscess per IR on 05/03. Culture growing Viridans Strep anginosus. ID consulted. Appreciate recommendations for targeted abx therapy. Continue Zosyn. PRN analgesia. Repeat CT 05/06 of abdomen/pelvis with oral and rectal contrast showing persistent abscess. IR consulted for drainage. Crohns flair: GI following. Hold steroids until cleared by ID. Repeat CT 05/06 showing stable small bowel and colonic inflammatory changes. GI recommending no immunosuppression until abscess(es) < 3cm. PRN analgesia and antiemetics. Elavil added to start tonight for persistent pain with bowel movements. GI prophylaxis: Protonix Nausea and vomiting: Continue antiemetics prn. Advance diet per gen surg recommendations. Currently on clears--tolerating. Advance diet as tolerated. JIGNA DE DIOS APRN - GEOPHYSICAL DRAFTER 05/07/2024 7:44 AM Associated attestation - Tanya Mercado MD - 05/07/2024 10:52 AM EST Attending Supervising Physician s Attestation Statement I have seen and examined Francine Hobson and the price elements of all parts of the encounter have been performed by me. I agree with the assessment, plan and orders as documented. I discussed the findings and plans with the resident physician and agree as documented in their note . In addition to the pertinent positives and negatives as stated within HPI and the review of systems as documented in the notes, all other systems were reviewed when able to and are reported negative. Additional Comments: Add Elavil, trial Ensures, has had one to two ensure clears per day. Plan for IR guided abscess drainage again. Colorectal Surgery: Daily Progress Note PATIENT NAME: Francine Hobson TODAY'S DATE: 05/06/2024, 11:49 PM SUBJECTIVE: Patient was seen and evaluated at bedside. Afebrile, vital signs normal limits. Patient had episode of emesis yesterday however overnight she felt a little better. Overall abdominal pain has improved. She had a liquid bowel movement yesterday and continues to pass flatus. Still complains of pain in the lower abdomen OBJECTIVE: VITALS: BP 99/67 Pulse 79 Temp 97.9 F (36.6 C) (Oral) Resp 17 Ht 1.689 m (5' 6.5 ) Wt 55.4 kg (122 lb 2.2 oz) LMP 04/28/2024 SpO2 (!) 82% BMI 19.42 kg/m INTAKE/OUTPUT: Intake/Output Summary (Last 24 hours) at 05/06/20242348 Last data filed at 05/06/20242029 Gross per 24 hour Intake 928.64 ml Output -- Net 928.64 ml PHYSICAL EXAM: CONSTITUTIONAL: awake, alert, mild distress and normal weight HEENT: Normocephalic/atraumatic, without obvious abnormality. NECK: Supple, symmetrical, trachea midline CARDIOVASCULAR: Regular rate and rhythm LUNGS: equal chest rise and fall, no increased WOB, ABDOMEN: Distended, moderately tender in the suprapubic region, no rebound tenderness MUSCULOSKELETAL: Muscle strength intact in all extremities bilaterally. NEUROLOGIC: Gross motor intact without focal weakness. SKIN: No cyanosis, rashes, or edema noted. Orientation: oriented to person, place, and time Data: CBC with Differential: Lab Results Component Value Date/Time WBC 9.6 05/06/2024 08:55 AM RBC 3.48 05/06/2024 08:55 AM HGB 9.4 05/06/2024 08:55 AM HCT 30.8 05/06/2024 08:55 AM PLT 405 05/06/2024 08:55 AM MCV 88.5 05/06/2024 08:55 AM MCH 27.0 05/06/2024 08:55 AM MCHC 30.5 05/06/2024 08:55 AM RDW 14.0 05/06/2024 08:55 AM LYMPHOPCT 12 05/06/2024 08:55 AM MONOPCT 5 05/06/2024 08:55 AM EOSPCT 2 05/06/2024 08:55 AM BASOPCT 1 05/06/2024 08:55 AM MONOSABS 0.52 05/06/2024 08:55 AM LYMPHSABS 1.15 05/06/2024 08:55 AM EOSABS 0.14 05/06/2024 08:55 AM BASOSABS 0.05 05/06/2024 08:55 AM BMP: Lab Results Component Value Date/Time NA 140 05/06/2024 08:55 AM K 4.2 05/06/2024 08:55 AM CL 108 05/06/2024 08:55 AM CO2 24 05/06/2024 08:55 AM BUN <2 05/06/2024 08:55 AM CREATININE 0.5 05/06/2024 08:55 AM CALCIUM 8.8 05/06/2024 08:55 AM LABGLOM >90 05/06/2024 08:55 AM LABGLOM >60 12/12/2022 03:33 AM GLUCOSE 99 05/06/2024 08:55 AM Radiology Review: CT ABSCESS DRAINAGE Result Date: 05/04/2024 PROCEDURE: CT GUIDEDPELVIC FLUID NEEDLE PLACEMENT/ASPIRATION MODERATE CONSCIOUS SEDATION 05/03/2024 HISTORY: ORDERING SYSTEM PROVIDED HISTORY: Please perform CT guided IR aspiration of abdominal abscess TECHNOLOGIST PROVIDED HISTORY: Please perform CT guided IR aspiration of abdominal abscess Is the patient ?->No Reason for Exam: Pelvic abscess aspirate Multilobulated pelvic fluid collection, Crohn's disease SEDATION: Moderate sedation was ordered and supervised by the attending with physician [id number] monitoring. Medications were provided and recorded by Radiology nurses. DOSE: DOSE/DLP: 351.91 mGy-cm Dose modulation, iterative reconstruction, and/or weight based adjustment of the mA/kV was utilized to reduce the radiation dose to as low as reasonably achievable. TECHNIQUE/PROCEDURE DETAILS: Informed consent was obtained after a detailed explanation of the procedure including risks. Rogerson protocol was followed. Sterile gown, masks, hats, and gloves utilized for maximal sterile barrier. The patient was placed in the prone position on the CT couch. A legal services professional scan was performed of the pelvis. The previously identified pelvic fluid was re-identified, and contrast could still be seen within the rectum/sigmoid colon. Moderate conscious sedation was initiated. A site was selected for drainage in the left perirectal region using a transgluteal approach. The skin was prepped and draped in sterile manner, and 1% lidocaine was utilized for local anesthetic. A 5 Scottish 9 Yueh needle sheath was advanced under intermittent CT guidance into the fluid collection. Aspiration through this needle yielded 18 mL cloudy yellow fluid. This aspiration appear to collapse the locule of fluid in which the needle was placed, but at least one more loculation could still be seen within the field of view. The needle was removed. Blood loss was minimal. COMPLICATIONS: None immediately apparent. Technically successful CT-guided pelvic fluid collection aspiration using a left transgluteal approach. ASSESSMENT: Active Hospital Problems Diagnosis Date Noted Bandemia [D72.825] 05/06/2024 Pelvic abscess in female [N73.9] 05/05/2024 Abscess of intestine due to Crohn's disease (HCC) [K50.914] 05/05/2024 Generalized abdominal pain [R10.84] 05/02/2024 Crohn's disease of colon with abscess (HCC) [K50.114] 05/02/2024 Intra-abdominal abscess (HCC) [K65.1] 05/01/2024 Crohn's colitis, other complication (HCC) [K50.118] 01/26/2024 Partial small bowel obstruction (HCC) [K56.600] 01/26/2024 Crohn's disease with complication (HCC) [K50.919] 12/12/2022 Generalized anxiety disorder with panic attacks [F41.1, F41.0] 11/24/2022 Depression, unspecified [F32.A] 11/24/2022 38-year-old female with Crohn's flare, pelvic abscesses IR guided aspiration showed Streptococcus viridans group. Plan: -Patient seen and evaluated. History, physical exam, laboratory, and radiographic findings reviewed and discussed with attending. -Continue IV antibiotics -Monitor trend of WBC -Monitor electrolytes. Recommend K >4, Mag >2 -Appreciate GI recommendations. -Pain and nausea control as needed -Monitor vitals per unit standard -Encourage I-S, deep breathing, and cough -Diet: Continue regular diet. -Remainder of plan and disposition per primary team. I Dr. Katz saw and examined the patient. I have edited the above and agree with the above. Hemant Katz Colorectal Surgery [facility] Gastroenterology Progress Note Francine Hobson is a 38 y.o. female patient. Hospitalization Day:5 Chief consult reason: Crohn's disease Subjective: Pt seen and examined. Patient continues on Zosyn, leucocytosis improving Appears stronger today-more talkative/interactive Pt was started on clears and ensures CT ordered for today Slight nausea No rectal bleeding, passing gas, no stool VITALS: BP 96/67 Pulse 72 Temp 97.8 F (36.6 C) (Oral) Resp 14 Ht 1.689 m (5' 6.5 ) Wt 55.4 kg (122 lb 2.2 oz) LMP 04/28/2024 SpO2 98% BMI 19.42 kg/m TEMPERATURE: Current - Temp: 97.8 F (36.6 C); Max - Temp Av.1 F (36.7 C) Min: 97.8 F (36.6 C) Max: 98.4 F (36.9 C) Physical Assessment: General appearance: alert, cooperative and mild pain distress Mental Status: oriented to person, place and time and normal affect Lungs: clear to auscultation bilaterally, normal effort Heart: regular rate and rhythm, no murmur Abdomen: soft, slightly tender, nondistended, normal bowel sounds, no masses, hepatomegaly, splenomegaly Extremities: no edema, redness, tenderness in the calves Skin: no gross lesions, rashes, induration Data Review: Labs and Imaging: CBC: Recent Labs 05/04/24 0200 05/05/24 0753 05/06/24 0855 WBC 16.0* 12.2* 9.6 HGB 9.5* 9.8* 9.4* MCV 85.2 87.8 88.5 RDW 14.0 14.0 14.0 PLT 319 366 405 ANEMIA STUDIES: No results for input(s): TIBC , FERRITIN , [id number] , FOLATE , OCCULTBLD in the last 72 hours. Invalid input(s): LABIRON BMP: Recent Labs 05/05/24 0753 05/05/24 2226 05/06/24 0855 NA 138 -- 140 K 3.2* 3.0* 4.2 CL 108* -- 108* CO2 19* -- 24 BUN <2* -- <2* CREATININE 0.5* -- 0.5* GLUCOSE 113* -- 99 CALCIUM 8.6 -- 8.8 LFTS: No results for input(s): ALKPHOS , ALT , AST , BILITOT , BILIDIR , LABALBU in the last 72 hours. Other pertinent labs: Gastroenterology impression: Crohn's disease with pelvic abscesses s/p IR drainage yesterday -No drain placed, 18 ml cloudy fluid removed -HX of small bowel resection 2005 Leukocytosis secondary to above-improving -Pt receiving Zosyn and Vanco RLQ pain-improving Sepsis- improving on abx -Ideally we would like to start steroids with Solumedrol 40 mg IV daily and monitor progress. But with current abscess, infection, etc-will wait until cleared per ID and after review of pending CT, recommend drainage of abscess more than 3 cm Plan: Recommend continue antibiotics, Appreciate recs and input per ID, IR, CRS. Recommend drainage of abscess more than 3 cm before consideration of immunosuppression Will follow up on CT scan Diet per surgery Supportive care per primary Will follow This plan was formulated in collaboration with Dr. Roberto MD Thank you for allowing me to participate in the care of your patient. Please feel free to contact me with any questions or concerns. [facility] Gastroenterology Leroy De La Vega, SHOULDER JOINER - BROACH TROUBLE SHOOTER [phone] 05/06/2024 11:29 AM Estimated time of 35 mins reviewing chart, assessing patient and formulating plan of care This note was created with the assistance of a speech-recognition program. Although the intention is to generate a document that actually reflects the content of the visit, no guarantees can be provided that every mistake has been identified and corrected by editing. Attending Attestation: I have discussed the care of Francine Hobson and I have examined the patient myselft and taken ros and hpi , including pertinent history and exam findings, with the author of this note . I have reviewed the price elements of all parts of the encounter with the nurse practitioner/resident. I agree with the assessment, plan and orders as documented by the above health care provider with the following addendum More than 50% of the time was spent taking care of this patient in addition to the nurse practitioner time. That also included history taking follow-up physical examination and review of system. Pt given contrast mixed with water and instructions given. Images from the original note were not included. [facility] - Infectious diseases evaluation admission date 05/01/2024 reason for consultation: Perirectal abscess Impression : Current: Chron's w past abscess- on upadacitinib - Pelvic abscess - w generalized abd pain - SB inflamed on CT and narrow sigmoid colon post IR aspiration 18 cc pus 05/03/24 - GPC chains Bandemia anxiety Other: Discussion / summary of stay / plan of care/ Recommendations: HENCE: Chron/s GI holding off steroids till abscess improves - await ID clearance - Pelvic abscess - Clinically better - no drain left after drainage due to comcern of developing a fistula track Repeat CT abd pelvic to look for resolution before he can be cleared for steroids -CT 05/06 shows persistent multiloculated pelvic abscess On zosyn - adjust to final fluid cx Disc w medicine Infection Control Recommendations Rogerson Precautions Contact Isolation Antimicrobial Stewardship Recommendations Simplification of therapy Targeted therapy History of Present Illness: Initial history: Francine Hobson is a 38 y.o.-year-old female Interval changes 05/06/2024 Patient Vitals for the past 8 hrs: BP Temp Temp src Pulse Resp SpO2 05/06/24 0745 96/67 97.8 F (36.6 C) Oral 72 14 98 % 05/06/24 0628 -- -- -- -- 16 -- 05/06/24 0558 -- -- -- -- 16 -- 05/06/24 0259 -- -- -- -- 16 -- 05/06/24 0229 -- -- -- -- 16 -- 05/06 No fever Abd pain in general better Vomited 05/04 Passing flatus and liquid stools WBC better as below Cx from the abscess still not final pend CTAP persistent multiloculated abscess in the pelvis no signs of fistula Summary of relevant labs: Labs: WBc 18 - 16 - 12 - 9.6 Creat 0.5 Micro: Pelvic abscess aspirate 05/03 by IR GRAM POSITIVE COCCI IN CHAINS, from bottle Blood cx 05/01 neg Past quantiferon TB GoLD NEGATIVE 01/27/24 Procedures Cardiology Imaging: CTAP 05/06 . Stable small bowel and colonic inflammatory changes and adynamic ileus. No evidence of a bowel leak. 2. Stable to slightly improved multiloculated pelvic abscesses. I have personally reviewed the past medical history, past surgical history, medications, social history, and family history, and I haveupdated the database accordingly. Allergies: Motrin [ibuprofen] and Nsaids Review of Systems: Review of Systems Constitutional: Negative for activity change. HENT: Negative for congestion. Eyes: Negative for discharge. Respiratory: Negative for apnea. Cardiovascular: Negative for chest pain. Gastrointestinal: Negative for abdominal distention. Endocrine: Negative for cold intolerance. Genitourinary: Negative for dysuria. Musculoskeletal: Negative for arthralgias. Skin: Negative for color change. Allergic/Immunologic: Negative for immunocompromised state. Neurological: Negative for dizziness. Hematological: Negative for adenopathy. Psychiatric/Behavioral: Negative for agitation. Physical Examination : Physical Exam Constitutional: General: She is not in acute distress. Appearance: She is not ill-appearing. HENT: Head: Normocephalic and atraumatic. Nose: Nose normal. No congestion. Mouth/Throat: Mouth: Mucous membranes are moist. Eyes: General: No scleral icterus. Pupils: Pupils are equal, round, and reactive to light. Cardiovascular: Rate and Rhythm: Regular rhythm. Heart sounds: No murmur heard. No gallop. Pulmonary: Effort: No respiratory distress. Breath sounds: No wheezing. Abdominal: General: There is no distension. Tenderness: There is no abdominal tenderness. Musculoskeletal: General: No swelling. Cervical back: Neck supple. No rigidity. Skin: Coloration: Skin is not jaundiced. Findings: No bruising. Neurological: Mental Status: She is alert and oriented to person, place, and time. Cranial Nerves: No cranial nerve deficit. Psychiatric: Mood and Affect: Mood normal. Thought Content: Thought content normal. Past Medical History: Past Medical History: Diagnosis Date Crohn disease (HCC) Past Surgical History: Past Surgical History: Procedure Laterality Date BOWEL RESECTION SECTION CT ABSCESS DRAIN SUBCUTANEOUS 05/03/2024 CT ABSCESS DRAIN SUBCUTANEOUS 05/03/2024 Jose Manuel Torre MD [facility] CT SCAN TONSILLECTOMY AND ADENOIDECTOMY TUMOR REMOVAL Left left shoulder, benign WISDOM TOOTH EXTRACTION Medications: citalopram 40 mg Oral Daily pantoprazole (PROTONIX) 40 mg in sodium chloride (PF) 0.9 % 10 mL injection 40 mg IntraVENous Daily sodium chloride flush 5-40 mL IntraVENous 2 times per day piperacillin-tazobactam 3,375 mg IntraVENous Q8H Social History: Social History Socioeconomic History Marital status: Single Spouse name: Not on file Number of children: Not on file Years of education: Not on file Highest education level: Not on file Occupational History Not on file Tobacco Use Smoking status: Every Day Types: Cigarettes Smokeless tobacco: Never Vaping Use Vaping status: Never Used Substance and Sexual Activity Alcohol use: Yes Comment: occass. Drug use: Yes Types: Marijuana ([place]) Sexual activity: Yes Partners: Male Other Topics Concern Not on file Social History Narrative Not on file Social Determinants of Health Financial Resource Strain: Low Risk (11/24/2022) Received from [facility] Overall Financial Resource Strain (CARDIA) Difficulty of Paying Living Expenses: Not hard at all Food Insecurity: No Food Insecurity (05/03/2024) Hunger Vital Sign Worried About Running Out of Food in the Last Year: Never true Ran Out of Food in the Last Year: Never true Transportation Needs: No Transportation Needs (05/03/2024) PRAPARE - Transportation Lack of Transportation (Medical): No Lack of Transportation (Non-Medical): No Physical Activity: Not on file Stress: Not on file Social Connections: Unknown (06/03/2021) Received from [facility] Social Connections Frequency of Communication with Friends and Family: Not asked Frequency of Social Gatherings with Friends and Family: Not asked Intimate Partner Violence: Unknown (06/03/2021) Received from [facility] Intimate Partner Violence Fear of Current or Ex-Partner: Not asked Emotionally Abused: Not asked Physically Abused: Not asked Sexually Abused: Not asked Housing Stability: Low Risk (05/03/2024) Housing Stability Vital Sign Unable to Pay for Housing in the Last Year: No Number of Times Moved in the Last Year: 0 Homeless in the Last Year: No Family History: History reviewed. No pertinent family history. Medical Decision Making: I have independently reviewed/ordered the following labs: CBC with Differential: Recent Labs 05/05/24 0753 05/06/24 0855 WBC 12.2* 9.6 HGB 9.8* 9.4* HCT 32.4* 30.8* PLT 366 405 LYMPHOPCT 7* 12* MONOPCT 6 5 EOSPCT 2 2 BMP: Recent Labs 05/05/24 0753 05/05/24 2226 NA 138 -- K 3.2* 3.0* CL 108* -- CO2 19* -- BUN <2* -- CREATININE 0.5* -- Hepatic Function Panel: No results for input(s): LABALBU , BILIDIR , IBILI , BILITOT , ALKPHOS , ALT , AST in the last 72 hours. Invalid input(s): PROT No results for input(s): RPR in the last 72 hours. No results for input(s): HIV in the last 72 hours. No results for input(s): BC in the last 72 hours. Lab Results Component Value Date/Time CREATININE 0.5 05/05/2024 07:53 AM GLUCOSE 113 05/05/2024 07:53 AM Detailed results: Thank you for allowing us to participate in the care of this patient.Please call with questions. This note is created with the assistance of a speech recognition program. While intending to generate adocument that actually reflects the content of the visit, the document can still have some errors including those of syntax and sound a like substitutions which may escape proof reading. It such instances, actual meaningcan be extrapolated by contextual diversion. Manjit Grover MD Office: [facility] / office [phone] Attending Supervising Physician s Attestation Statement I have seen and examined Francine Hobson and the price elements of all parts of the encounter have been performed by me. I agree with the assessment, plan and orders as documented. I discussed the findings and plans with the resident physician and agree as documented in their note . In addition to the pertinent positives and negatives as stated within HPI and the review of systems as documented in the notes, all other systems were reviewed when able to and are reported negative. Additional Comments: Patient seen examined today. Abdominal pain slowly improving. Plan for repeat CT abdomen pelvis. Patient tolerating clear liquid diet and has drank 1 Ensure clear per day. Discussed about nutritional needs. She will try to increase her p.o. intake. Plan to increase p.o. intake after CT abdomen secondary to requiring oral contrast and sometimes causing nausea Images from the original note were not included. [facility] Office: [phone] Marco Delarosa DO, Dominic Gonzalez DO, Clifton Blanc DO, Froylan Snowden DO, Paula Jensen MD, Radha Greer MD, Nitish Parra MD, Maya Hernández MD, Porfirio García MD, Norma Smith MD, Tanya Mercado MD, Eloy Alves DO, Heidi Roche MD, Arthur Schroeder MD, Jose Manuel Delarosa DO, Shikha Pastrana MD, Obed Lilly DO, Rosangela Koehler MD, Alysa De Santiago MD, Dianne Agudelo MD, Judith Nicole MD, London Morales MD, Gamal Granger MD, Abby Salgado MD, Nereyda Lucas MD, Dru Shannon MD, Shahid Reddy MD, Ashley Schaffer DO, Cruzito Holloway MD, Alix Acosta CNP, Shefali Hills CNP, Ashley Baker CNP, Muna Brandon DNP, Neida Mars CNP, Jigna De Dios CNP, Angelina Peguero CNP, Adwoa Lei CNP, Carmen Wray PA-C, Kathy Apple PA-C, Jaz Castaneda CNP, Robert Huertas CNP, Vanessa Saleh CNP, Josefina Higgins, RONEL, Lissett Root, RONEL, Lu Cooley, RONEL [facility] IN-PATIENT SERVICE [facility] Progress Note 05/06/2024 7:35 AM Name: Francine Hobson Acct: [id number] Room: [address] [place] [address] Day: 5 Admit Date: 05/01/2024 2:13 PM PCP: No primary care provider on file. Code Status: Full Code Subjective: C/C: Chief Complaint Patient presents with Abdominal Pain Interval History Status: improved. Feeling slightly better. Tolerating po intake. Repeat CT abdomen/pelvis with oral and rectal contrast pending. Pain controlled with current regime. Blood pressures remain soft but unchanged from trend. Afebrile. Available labs reviewed. K+ replaced and WNL this morning. Brief History: 38-year-old female past medical history of Crohn's disease, history of ileocecal resection, anxiety depression, vitamin D deficiency presents with abdominal pain. Concern for Crohn's with abscess. Colorectal surgery, GI, IR following patient. Underwent CT abdomen pelvis on 05/02/2024. 05/03/24: Abscess aspiration in IR Successful aspiration of pelvic abscess. Approximately 18 mL of cloudy yellow fluid were obtained. No abscess drain was left in place due to high risk of developing enterocutaneous fistula 05/05/2024: Abscess growing gram-positive cocci. Review of Systems: Constitutional: negative for chills, fevers, sweats Respiratory: negative for cough, dyspnea on exertion, shortness of breath, wheezing Cardiovascular: negative for chest pain, chest pressure/discomfort, lower extremity edema, palpitations Gastrointestinal: Positive abdominal pain (+) diarrhea, nausea. No vomiting Neurological: negative for dizziness, headache Medications: Allergies: Allergies Allergen Reactions Motrin [Ibuprofen] Nsaids Current Meds: Scheduled Meds: citalopram 40 mg Oral Daily pantoprazole (PROTONIX) 40 mg in sodium chloride (PF) 0.9 % 10 mL injection 40 mg IntraVENous Daily sodium chloride flush 5-40 mL IntraVENous 2 times per day piperacillin-tazobactam 3,375 mg IntraVENous Q8H Continuous Infusions: sodium chloride 50 mL/hr at 05/05/24 1749 sodium chloride 10 mL/hr at 05/03/24 1836 PRN Meds: diazePAM, dicyclomine, sodium chloride flush, sodium chloride, potassium chloride OR potassium alternative oral replacement OR potassium chloride, ondansetron OR ondansetron, polyethylene glycol, bisacodyl, acetaminophen OR acetaminophen, LORazepam, fentanNYL Data: Past Medical History: has a past medical history of Crohn disease (HCC). Social History: reports that she has been smoking cigarettes. She has never used smokeless tobacco. She reports current alcohol use. She reports current drug use. Drug: Marijuana ([place]). Family History: History reviewed. No pertinent family history. Vitals: BP 101/71 Pulse 90 Temp 98.4 F (36.9 C) (Oral) Resp 16 Ht 1.689 m (5' 6.5 ) Wt 55.4 kg (122 lb 2.2 oz) LMP 04/28/2024 SpO2 98% BMI 19.42 kg/m Temp (24hrs), Av F (36.7 C), Min:97.5 F (36.4 C), Max:98.4 F (36.9 C) No results for input(s): POCGLU in the last 72 hours. I/O (24Hr): No intake or output data in the 24 hours ending 05/06/24 0735 Labs: Hematology: Recent Labs 05/04/24 02005/05/24 0753 WBC 16.0* 12.2* RBC 3.59* 3.69* HGB 9.5* 9.8* HCT 30.6* 32.4* MCV 85.2 87.8 MCH 26.5 26.6 MCHC 31.0 30.2 RDW 14.0 14.0 PLT 319 366 MPV 9.1 9.2 Chemistry: Recent Labs 05/04/24 0200 05/04/24 1525 05/05/24 0753 05/05/24 2226 NA -- -- 138 -- K -- -- 3.2* 3.0* CL -- -- 108* -- CO2 -- -- 19* -- GLUCOSE -- -- 113* -- BUN -- -- <2* -- CREATININE -- -- 0.5* -- ANIONGAP -- -- 11 -- LABGLOM -- -- >90 -- CALCIUM -- -- 8.6 -- PHOS -- -- 2.4* -- LACTACIDWB 0.5* 0.9 -- -- No results for input(s): LABALBU , LABA1C , S4IOIYW , FT4 , TSH , AST , ALT , LDH , GGT , ALKPHOS , BILITOT , BILIDIR , AMMONIA , AMYLASE , LIPASE , LACTATE , CHOL , HDL , CHOLHDLRATIO , TRIG , VLDL , XRN08JR , PHENYTOIN , PHENYF , URICACID , POCGLU in the last 72 hours. Invalid input(s): PROT , B0QPFOH , LABGGT , LDLCHOLESTEROL ABG:No results found for: POCPH , PHART , PH , POCPCO2 , TKM6UKB , PCO2 , POCPO2 , PO2ART , PO2 , POCHCO3 , REH2TZO , HCO3 , NBEA , PBEA , BEART , BE , THGBART , THB , KAB9VMM , PYHF3OQU , B4OSQQAV , O2SAT , FIO2 Lab Results Component Value Date/Time SPECIAL Site: Body Fluid 05/03/2024 06:05 PM Lab Results Component Value Date/Time CULTURE POSITIVE Fluid Culture 05/03/2024 06:05 PM CULTURE 05/03/2024 06:05 PM DIRECT GRAM STAIN FROM BOTTLE: GRAM POSITIVE COCCI IN CHAINS CULTURE 05/03/2024 06:05 PM (NOTE) Direct Gram Stain from bottle result called to and read back by:WAQAS De Guzman 05/04/24 7257 Radiology: CT ABSCESS DRAINAGE Result Date: 05/04/[address]-guided pelvic fluid collection aspiration using a left transgluteal approach. CT ABDOMEN PELVIS W IV CONTRAST Additional Contrast? Oral and Rectal Result Date: 05/02/2024 1. Unchanged appearance of active Crohn's disease with complex multiloculated abscess without definite fistula seen on this examination. Partial small bowel obstruction given dilated proximal bowel US DUP ABD PEL RETRO SCROT LIMITED Result Date: 05/01/2024 1. Right ovarian 5.5 cm simple cystic structure most compatible with dominant follicle. 2. Otherwise, unremarkable pelvic ultrasound. RECOMMENDATIONS: Pathology: Right ovarian probable benign cyst measuring 5.4 cm.Recommend follow-up pelvic ultrasound in 3-6 months. US NON OB TRANSVAGINAL Result Date: 05/01/2024 1. Right ovarian 5.5 cm simple cystic structure most compatible with dominant follicle. 2. Otherwise, unremarkable pelvic ultrasound. RECOMMENDATIONS: Pathology: Right ovarian probable benign cyst measuring 5.4 cm.Recommend follow-up pelvic ultrasound in 3-[address] ABDOMEN PELVIS W IV CONTRAST Additional Contrast? None Result Date: 05/01/2024 Findings compatible with active Crohn's disease with complex fluid collection associated with inflamed small bowel in the lower abdomen and pelvis and possible abscess, as described. Possible fistula versus focal area of narrowing in the sigmoid colon. No evidence for bowel obstruction. These findings could be further delineated with follow-up imaging utilizing oral contrast. Prominent cystic structure in the right pelvis may represent an adnexal cyst versus loculated fluid collection, for which attention to on follow-up imaging is recommended. Physical Examination: General appearance: alert, cooperative and no distress. Appears more alert today. Cheeks pink. Mental Status: oriented to person, place and time and normal affect Lungs: clear to auscultation bilaterally, normal effort Heart: regular rate and rhythm, no murmur Abdomen: soft, nontender, nondistended, normal bowel sounds, no masses, hepatomegaly, splenomegaly Extremities: no edema, redness, tenderness in the calves Skin: no gross lesions, rashes, induration Assessment: Hospital Problems Last Modified POA * (Principal) Intra-abdominal abscess (HCC) 05/01/2024 Yes Crohn's disease with complication (HCC) 05/01/2024 Yes Crohn's colitis, other complication (HCC) 05/02/2024 Yes Partial small bowel obstruction (HCC) 05/02/2024 Yes Depression, unspecified 05/01/2024 Yes Generalized anxiety disorder with panic attacks 05/01/2024 Yes Generalized abdominal pain 05/02/2024 Yes Crohn's disease of colon with abscess (HCC) 05/02/2024 Yes Pelvic abscess in female 05/05/2024 Yes Abscess of intestine due to Crohn's disease (HCC) 05/05/2024 Yes Plan: Intra-abdominal abscess with Crohn's flare: Colorectal surgery and GI following. Aspiration of pelvic abscess per IR on 05/03. Culture with gm (+) cocci. ID consulted. Appreciate recommendations for targeted abx therapy. Continue Zosyn. PRN analgesia. Pending repeat CT abdomen/pelvis with oral and rectal contrast. Crohns flair: GI following. Hold steroids until cleared by ID. Repeat CT pending. GI prophylaxis: Protonix--transitioned to po. Nausea and vomiting: Continue antiemetics prn. Advance diet per gen surg recommendations. Currently on clears--tolerating. Advance diet as tolerated. DIONISIO ZHAO NP 05/06/2024 7:35 AM Nutrition Assessment Type and Reason for Visit: Reassess Nutrition Recommendations/Plan: Replace electrolytes - pt at risk for refeeding Continue current diet as tolerated and advance as pt tolerates Monitor PO intake, wt, meds, labs, POC Malnutrition Assessment: Malnutrition Status: At risk for malnutrition Nutrition Assessment: CLD started 05/04, clear ONS (Ensure clear) added to meals 05/05. Pt has a poor appetite with intakes of 0% - likely from abdominal pain. Abdominal abcess was drained 05/04. LBM 05/04. Meds: Protonix, Sodium Chloride infusion, Zosyn. Labs: K 3.2 mmol/L, Mg 1.5 mg/dL, Phos 2.4 mg/dL Estimated Daily Nutrient Needs: Energy (kcal): 7807-7299 kcal/d per 25-30 kcal/kg Weight Used for Energy Requirements: Current Protein (g): 67-78 g/d per 1.2-1.4 g/kg Weight Used for Protein Requirements: Current Fluid (ml/day): or per physician Method Used for Fluid Requirements: 1 ml/kcal Nutrition Related Findings: Meds/labs reviewed Wound Type: None Current Nutrition Therapies: ADULT DIET; Clear Liquid ADULT ORAL NUTRITION SUPPLEMENT; Breakfast, Lunch, Dinner; Clear Liquid Oral Supplement Anthropometric Measures: Height: 168.9 cm (5' 6.5 ) Current Body Wt: 55.4 kg (122 lb 2.2 oz) BMI: 19.4 Nutrition Diagnosis: Inadequate protein-energy intake related to altered GI function as evidenced by NPO or clear liquid status due to medical condition, intake 0-25% Nutrition Interventions: Food and/or Nutrient Delivery: Continue Current Diet, Start Oral Nutrition Supplement Nutrition Education/Counseling: No recommendation at this time Coordination of Nutrition Care: Continue to monitor while inpatient Goals: Goals: PO intake 50% or greater, by next RD assessment Type of Goal: New goal Previous Goal Met: No Progress toward Goal(s) Nutrition Monitoring and Evaluation: Behavioral-Environmental Outcomes: None Identified Food/Nutrient Intake Outcomes: Diet Advancement/Tolerance, Food and Nutrient Intake, Supplement Intake Physical Signs/Symptoms Outcomes: Biochemical Data, Skin, Weight, GI Status, Fluid Status or Edema Discharge Planning: Too soon to determine Maryam Abdul MS, RDN, LDN Contact: [phone] [facility] Gastroenterology Progress Note Francine Hobson is a 38 y.o. female patient. Hospitalization Day:4 Chief consult reason: Crohn's disease Subjective: Pt seen and examined. Patient continues on Vanco and Zosyn Patient still complaining of slight right lower quadrant pain and back pain No nausea or vomiting overnight Leukocytosis improving from 16-12.2, hemoglobin stable 9.8 g/dL ID has been consulted for antibiotic mgt VITALS: BP 96/66 Pulse 69 Temp 97.5 F (36.4 C) (Oral) Resp 18 Ht 1.689 m (5' 6.5 ) Wt 55.4 kg (122 lb 2.2 oz) LMP 04/28/2024 SpO2 97% BMI 19.42 kg/m TEMPERATURE: Current - Temp: 97.5 F (36.4 C); Max - Temp Av.5 F (36.4 C) Min: 97.5 F (36.4 C) Max: 97.5 F (36.4 C) Physical Assessment: General appearance: alert, cooperative and mild pain distress Mental Status: oriented to person, place and time and normal affect Lungs: clear to auscultation bilaterally, normal effort Heart: regular rate and rhythm, no murmur Abdomen: soft, slightly tender, nondistended, normal bowel sounds, no masses, hepatomegaly, splenomegaly Extremities: no edema, redness, tenderness in the calves Skin: no gross lesions, rashes, induration Data Review: Labs and Imaging: CBC: Recent Labs 10/41305/04/24 0200 05/05/24 0753 WBC 18.2* 16.0* 12.2* HGB 9.5* 9.5* 9.8* MCV 97.7 85.2 87.8 RDW 14.5* 14.0 14.0 PLT 304 319 366 ANEMIA STUDIES: No results for input(s): TIBC , FERRITIN , [id number] , FOLATE , OCCULTBLD in the last 72 hours. Invalid input(s): LABIRON BMP: Recent Labs 05/03/2441305/05/24752 NA 134* 138 K 3.7 3.2* CL 104 108* CO2 13* 19* BUN 3* <2* CREATININE 0.5* 0.5* GLUCOSE 60* 113* CALCIUM 7.9* 8.6 LFTS: No results for input(s): ALKPHOS , ALT , AST , BILITOT , BILIDIR , LABALBU in the last 72 hours. Other pertinent labs: Gastroenterology impression: Crohn's disease with pelvic abscesses s/p IR drainage yesterday -No drain placed, 18 ml cloudy fluid removed -HX of small bowel resection 2006 Leukocytosis secondary to above-improving -Pt receiving Zosyn and Vanco RLQ pain-improving -Ideally we would like to start steroids with Solumedrol 40 mg IV daily and monitor progress. But with current abscess, infection, etc-will wait until cleared per ID might take Plan: Recommend continue antibiotics, Appreciate recs and input per ID. Will start steroids once cleared per ID Diet per general surgery Supportive care per primary Will follow This plan was formulated in collaboration with Dr. Anastasia MD Thank you for allowing me to participate in the care of your patient. Please feel free to contact me with any questions or concerns. [facility] Gastroenterology Leroy De La Vega, SHOULDER JOINER - [employer]ER [phone] 05/05/2024 11:10 AM Estimated time of mins reviewing chart, assessing patient and formulating plan of care This note was created with the assistance of a speech-recognition program. Although the intention is to generate a document that actually reflects the content of the visit, no guarantees can be provided that every mistake has been identified and corrected by editing. Associated attestation - Maru Maguire MD - 05/05/2024 7:24 PM EDT Attested: I have discussed the care of Francine Hobson and I have examined the patient myselft and taken ros and hpi , including pertinent history and exam findings, with the author of this note . I have reviewed the price elements of all parts of the encounter with the nurse practitioner/resident. I agree with the assessment, plan and orders as documented by the above health care provider with the following addendum Impression- Crohn's disease complicated by intra-abdominal abscess S/P aspiration by IR Plan- Continue on IV antibiotic Will need TPN More than 50% of the time was spent taking care of this patient in addition to the nurse practitioner time. That also included history taking follow-up physical examination and review of system. Electronically signed by Maur Maguire MD Images from the original note were not included. [facility] Office: [phone] Marco Delarosa DO, Dominic Gonzalez DO, Clifton Blanc DO, Froylan Snowden DO, Paula Jensen MD, Radha Greer MD, Nitish Parra MD, Maya Hernández MD, Porfirio García MD, Norma Smith MD, Tanya Mercado MD, Eloy Alves DO, Heidi Roche MD, Arthur Schroeder MD, Jose Manuel Delarosa DO, Shikha Pastrana MD, Obed Lilly DO, Rosangela Koehler MD, Alysa De Santiago MD, Dianne Agudelo MD, Judith Nicole MD, London Morales MD, Gamal Granger MD, Abby Salgado MD, Nereyda Lucas MD, Dru Shannon MD, Shahid Reddy MD, Ashley Schaffer DO, Cruzito Hollwoay MD, lAix Acosta CNP, Shefali Hills CNP, Ashley Baker CNP, Muna Brandon DNP, Neida Mars CNP, Jigna De Dios CNP, Angelina Peguero, [employer]OOTER, Adwoa Lei, [employer] TR[employer] SHOOTER, Carmen Wray, PITA, Kathy Apple PA-C, Jaz Castaneda, RONEL, Robert Huertas, [employer]ER, Vanessa Saleh, [employer]ER, Josefina Higgins, [employer] SHOOTER, Lissett Root, [employer] SHO[employer]ER, Lu Cooley, [employer] SHO[employer]ER [facility] IN-PATIENT SERVICE [facility] Progress Note 05/05/2024 7:52 AM Name: Francine Hobson Acct: [id number] Room: [id number] Day: 4 Admit Date: 05/01/2024 2:13 PM PCP: No primary care provider on file. Code Status: Full Code Subjective: C/C: Chief Complaint Patient presents with Abdominal Pain Interval History Status: improved. Resting quietly. No overnight events. Had one emesis yesterday. Intermittent diarrhea. Pain slightly improved and tolerable with current regime. C-diff results pending. Tolerating clear liquids. Culture from abscess growing gm (+) cocci. ID to evaluate. Brief History: 38-year-old female past medical history of Crohn's disease, history of ileocecal resection, anxiety depression, vitamin D deficiency presents with abdominal pain. Concern for Crohn's with abscess. Colorectal surgery, GI, IR following patient. Underwent CT abdomen pelvis on 05/02/2024. Review of Systems: Constitutional: negative for chills, fevers, sweats Respiratory: negative for cough, dyspnea on exertion, shortness of breath, wheezing Cardiovascular: negative for chest pain, chest pressure/discomfort, lower extremity edema, palpitations Gastrointestinal: negative for abdominal pain, constipation, diarrhea, nausea, vomiting Neurological: negative for dizziness, headache Medications: Allergies: Allergies Allergen Reactions Motrin [Ibuprofen] Nsaids Current Meds: Scheduled Meds: vancomycin 1,000 mg IntraVENous Q8H vancomycin (VANCOCIN) intermittent dosing (placeholder) Other RX Placeholder citalopram 40 mg Oral Daily pantoprazole (PROTONIX) 40 mg in sodium chloride (PF) 0.9 % 10 mL injection 40 mg IntraVENous Daily sodium chloride flush 5-40 mL IntraVENous 2 times per day piperacillin-tazobactam 3,375 mg IntraVENous Q8H Continuous Infusions: sodium chloride 75 mL/hr at 05/03/24 0613 sodium chloride 10 mL/hr at 05/03/24 1836 PRN Meds: diazePAM, [Held by provider] dicyclomine, sodium chloride flush, sodium chloride, potassium chloride OR potassium alternative oral replacement OR potassium chloride, ondansetron OR ondansetron, [Held by provider] polyethylene glycol, bisacodyl, acetaminophen OR acetaminophen, LORazepam, fentanNYL Data: Past Medical History: has a past medical history of Crohn disease (HCC). Social History: reports that she has been smoking cigarettes. She has never used smokeless tobacco. She reports current alcohol use. She reports current drug use. Drug: Marijuana ([place]). Family History: History reviewed. No pertinent family history. Vitals: BP 116/74 Pulse 90 Temp 97.5 F (36.4 C) (Oral) Resp 18 Ht 1.689 m (5' 6.5 ) Wt 55.4 kg (122 lb 2.2 oz) LMP 04/28/2024 SpO2 98% BMI 19.42 kg/m Temp (24hrs), Av.9 F (36.6 C), Min:97.5 F (36.4 C), Max:98.2 F (36.8 C) No results for input(s): POCGLU in the last 72 hours. I/O (24Hr): No intake or output data in the 24 hours ending 05/05/24 0752 Labs: Hematology: Recent Labs 05/03/244 05/04/24 0200 WBC 18.2* 16.0* RBC 3.53* 3.59* HGB 9.5* 9.5* HCT 34.5* 30.6* MCV 97.7 85.2 MCH 26.9 26.5 MCHC 27.5* 31.0 RDW 14.5* 14.0 PLT 304 319 MPV 9.1 9.1 Chemistry: Recent Labs 05/02/24 0832 05/02/24 1417 05/03/24 0414 05/04/24 0200 05/04/24 1525 NA -- -- 134* -- -- K 3.5* -- 3.7 -- -- CL -- -- 104 -- -- CO2 -- -- 13* -- -- GLUCOSE -- -- 60* -- -- BUN -- -- 3* -- -- CREATININE -- -- 0.5* -- -- ANIONGAP -- -- 17* -- -- LABGLOM -- -- >90 -- -- CALCIUM -- -- 7.9* -- -- LACTACIDWB 0.8 < > 0.6* 0.5* 0.9 < > = values in this interval not displayed. No results for input(s): LABALBU , LABA1C , Y2BBTCS , FT4 , TSH , AST , ALT , LDH , GGT , ALKPHOS , BILITOT , BILIDIR , AMMONIA , AMYLASE , LIPASE , LACTATE , CHOL , HDL , CHOLHDLRATIO , TRIG , VLDL , KDB86UH , PHENYTOIN , PHENYF , URICACID , POCGLU in the last 72 hours. Invalid input(s): PROT , B4VSGTD , LABGGT , LDLCHOLESTEROL ABG:No results found for: POCPH , PHART , PH , POCPCO2 , FJM2SNB , PCO2 , POCPO2 , PO2ART , PO2 , POCHCO3 , ZTK4FJE , HCO3 , NBEA , PBEA , BEART , BE , THGBART , THB , CHZ7SUT , BYVB8NKI , Y3VRPKVR , O2SAT , FIO2 Lab Results Component Value Date/Time SPECIAL Site: Body Fluid 05/03/2024 06:05 PM Lab Results Component Value Date/Time CULTURE POSITIVE Blood Culture (A) 05/03/2024 06:05 PM CULTURE 05/03/2024 06:05 PM DIRECT GRAM STAIN FROM BOTTLE: GRAM POSITIVE COCCI IN CHAINS CULTURE 05/03/2024 06:05 PM (NOTE) Direct Gram Stain from bottle result called to and read back by:WAQAS De Guzman 05/04/24 3970 Radiology: CT ABSCESS DRAINAGE Result Date: 05/04/[address]-guided pelvic fluid collection aspiration using a left transgluteal approach. CT ABDOMEN PELVIS W IV CONTRAST Additional Contrast? Oral and Rectal Result Date: 05/02/2024 1. Unchanged appearance of active Crohn's disease with complex multiloculated abscess without definite fistula seen on this examination. Partial small bowel obstruction given dilated proximal bowel US DUP ABD PEL RETRO SCROT LIMITED Result Date: 05/01/2024 1. Right ovarian 5.5 cm simple cystic structure most compatible with dominant follicle. 2. Otherwise, unremarkable pelvic ultrasound. RECOMMENDATIONS: Pathology: Right ovarian probable benign cyst measuring 5.4 cm.Recommend follow-up pelvic ultrasound in 3-6 months. US NON OB TRANSVAGINAL Result Date: 05/01/2024 1. Right ovarian 5.5 cm simple cystic structure most compatible with dominant follicle. 2. Otherwise, unremarkable pelvic ultrasound. RECOMMENDATIONS: Pathology: Right ovarian probable benign cyst measuring 5.4 cm.Recommend follow-up pelvic ultrasound in 3-[address] ABDOMEN PELVIS W IV CONTRAST Additional Contrast? None Result Date: 05/01/2024 Findings compatible with active Crohn's disease with complex fluid collection associated with inflamed small bowel in the lower abdomen and pelvis and possible abscess, as described. Possible fistula versus focal area of narrowing in the sigmoid colon. No evidence for bowel obstruction. These findings could be further delineated with follow-up imaging utilizing oral contrast. Prominent cystic structure in the right pelvis may represent an adnexal cyst versus loculated fluid collection, for which attention to on follow-up imaging is recommended. Physical Examination: General appearance: alert, cooperative and no distress Mental Status: oriented to person, place and time and normal affect Lungs: clear to auscultation bilaterally, normal effort Heart: regular rate and rhythm, no murmur Abdomen: soft, nontender, nondistended, normal bowel sounds, no masses, hepatomegaly, splenomegaly Extremities: no edema, redness, tenderness in the calves Skin: no gross lesions, rashes, induration Assessment: Hospital Problems Last Modified POA * (Principal) Intra-abdominal abscess (HCC) 05/01/2024 Yes Crohn's disease with complication (HCC) 05/01/2024 Yes Crohn's colitis, other complication (HCC) 05/02/2024 Yes Partial small bowel obstruction (HCC) 05/02/2024 Yes Depression, unspecified 05/01/2024 Yes Generalized anxiety disorder with panic attacks 05/01/2024 Yes Generalized abdominal pain 05/02/2024 Yes Crohn's disease of colon with abscess (HCC) 05/02/2024 Yes Plan: Intra-abdominal abscess with Crohn's flare: Colorectal surgery and GI following. Aspiration of pelvic abscess per IR on 05/03. Culture with gm (+) cocci. ID consulted. Appreciate recommendations for targeted abx therapy. Continue Vancomycin and Zosyn. PRN analgesia. GI prophylaxis: Protonix. Nausea and vomiting: Continue antiemetics prn. Advance diet per gen surg recommendations. Currently on clears--tolerating. DIONISIO ZHAO NP 05/05/2024 7:52 AM Colorectal Surgery: Daily Progress Note PATIENT NAME: Francine Hobson TODAY'S DATE: 05/05/2024, 7:33 AM SUBJECTIVE: Patient was seen and evaluated at bedside. Afebrile, vital signs normal limits. Patient had episode of emesis yesterday however overnight she felt a little better. Overall abdominal pain has improved. She had a liquid bowel movement yesterday and continues to pass flatus. Still complains of pain in the lower abdomen OBJECTIVE: VITALS: BP 116/74 Pulse 90 Temp 97.5 F (36.4 C) (Oral) Resp 18 Ht 1.689 m (5' 6.5 ) Wt 55.4 kg (122 lb 2.2 oz) LMP 04/28/2024 SpO2 98% BMI 19.42 kg/m INTAKE/OUTPUT: No intake or output data in the 24 hours ending 05/05/24 0733 PHYSICAL EXAM: CONSTITUTIONAL: awake, alert, mild distress and normal weight HEENT: Normocephalic/atraumatic, without obvious abnormality. NECK: Supple, symmetrical, trachea midline CARDIOVASCULAR: Regular rate and rhythm LUNGS: equal chest rise and fall, no increased WOB, ABDOMEN: Distended, moderately tender in the suprapubic region, no rebound tenderness MUSCULOSKELETAL: Muscle strength intact in all extremities bilaterally. NEUROLOGIC: Gross motor intact without focal weakness. SKIN: No cyanosis, rashes, or edema noted. Orientation: oriented to person, place, and time Data: CBC with Differential: Lab Results Component Value Date/Time WBC 16.0 05/04/2024 02:00 AM RBC 3.59 05/04/2024 02:00 AM HGB 9.5 05/04/2024 02:00 AM HCT 30.6 05/04/2024 02:00 AM PLT 319 05/04/2024 02:00 AM MCV 85.2 05/04/2024 02:00 AM MCH 26.5 05/04/2024 02:00 AM MCHC 31.0 05/04/2024 02:00 AM RDW 14.0 05/04/2024 02:00 AM LYMPHOPCT 5 05/04/2024 02:00 AM MONOPCT 5 05/04/2024 02:00 AM EOSPCT 1 05/04/2024 02:00 AM BASOPCT 0 05/04/2024 02:00 AM MONOSABS 0.79 05/04/2024 02:00 AM LYMPHSABS 0.81 05/04/2024 02:00 AM EOSABS 0.18 05/04/2024 02:00 AM BASOSABS 0.03 05/04/2024 02:00 AM BMP: Lab Results Component Value Date/Time NA 134 05/03/2024 04:14 AM K 3.7 05/03/2024 04:14 AM CL 104 05/03/2024 04:14 AM CO2 13 05/03/2024 04:14 AM BUN 3 05/03/2024 04:14 AM CREATININE 0.5 05/03/2024 04:14 AM CALCIUM 7.9 05/03/2024 04:14 AM LABGLOM >90 05/03/2024 04:14 AM LABGLOM >60 12/12/2022 03:33 AM GLUCOSE 60 05/03/2024 04:14 AM Radiology Review: CT ABSCESS DRAINAGE Result Date: 05/04/2024 PROCEDURE: CT GUIDEDPELVIC FLUID NEEDLE PLACEMENT/ASPIRATION MODERATE CONSCIOUS SEDATION 05/03/2024 HISTORY: ORDERING SYSTEM PROVIDED HISTORY: Please perform CT guided IR aspiration of abdominal abscess TECHNOLOGIST PROVIDED HISTORY: Please perform CT guided IR aspiration of abdominal abscess Is the patient ?->No Reason for Exam: Pelvic abscess aspirate Multilobulated pelvic fluid collection, Crohn's disease SEDATION: Moderate sedation was ordered and supervised by the attending with physician [id number] monitoring. Medications were provided and recorded by Radiology nurses. DOSE: DOSE/DLP: 351.91 mGy-cm Dose modulation, iterative reconstruction, and/or weight based adjustment of the mA/kV was utilized to reduce the radiation dose to as low as reasonably achievable. TECHNIQUE/PROCEDURE DETAILS: Informed consent was obtained after a detailed explanation of the procedure including risks. Rogerson protocol was followed. Sterile gown, masks, hats, and gloves utilized for maximal sterile barrier. The patient was placed in the prone position on the CT couch. A legal services professional scan was performed of the pelvis. The previously identified pelvic fluid was re-identified, and contrast could still be seen within the rectum/sigmoid colon. Moderate conscious sedation was initiated. A site was selected for drainage in the left perirectal region using a transgluteal approach. The skin was prepped and draped in sterile manner, and 1% lidocaine was utilized for local anesthetic. A 5 Scottish 9 Yueh needle sheath was advanced under intermittent CT guidance into the fluid collection. Aspiration through this needle yielded 18 mL cloudy yellow fluid. This aspiration appear to collapse the locule of fluid in which the needle was placed, but at least one more loculation could still be seen within the field of view. The needle was removed. Blood loss was minimal. COMPLICATIONS: None immediately apparent. Technically successful CT-guided pelvic fluid collection aspiration using a left transgluteal approach. ASSESSMENT: Active Hospital Problems Diagnosis Date Noted Generalized abdominal pain [R10.84] 05/02/2024 Crohn's disease of colon with abscess (HCC) [K50.114] 05/02/2024 Intra-abdominal abscess (HCC) [K65.1] 05/01/2024 Crohn's colitis, other complication (HCC) [K50.118] 01/26/2024 Partial small bowel obstruction (HCC) [K56.600] 01/26/2024 Crohn's disease with complication (HCC) [K50.919] 12/12/2022 Generalized anxiety disorder with panic attacks [F41.1, F41.0] 11/24/2022 Depression, unspecified [F32.A] 11/24/2022 38-year-old female with Crohn's flare, pelvic abscesses Plan: -Patient seen and evaluated. History, physical exam, laboratory, and radiographic findings reviewed and discussed with attending. -Continue IV antibiotics -Monitor trend of WBC -Awaiting cultures from IR aspiration of pelvic abscess 05/04 -Monitor electrolytes. Recommend K >4, Mag >2 -Appreciate GI recommendations. -Pain and nausea control as needed -Monitor vitals per unit standard -Encourage I-S, deep breathing, and cough -Diet: NPO -Remainder of plan and disposition per primary team. I Dr. Katz saw and examined the patient. I have edited the above and agree with the above. Hemant Katz Colorectal Surgery [facility] Gastroenterology Progress Note Francine Hobson is a 38 y.o. female patient. Hospitalization Day:3 Chief consult reason: Crohn's disease Subjective: Pt seen and examined. Patient continues on Vanco and Zosyn Awaiting stool specimen to be sent for C. difficile testing and Jairo Pro Leukocytosis greatly improved 0.0, hemoglobin stable 9.5 g/dL Patient had drainage yesterday with removal of 18 mL of cloudy yellow fluid. No drain placed VITALS: BP 117/74 Pulse 86 Temp 98.2 F (36.8 C) (Oral) Resp 16 Ht 1.689 m (5' 6.5 ) Wt 55.4 kg (122 lb 2.2 oz) LMP 04/28/2024 SpO2 100% BMI 19.42 kg/m TEMPERATURE: Current - Temp: 98.2 F (36.8 C); Max - Temp Av.5 F (36.9 C) Min: 98.1 F (36.7 C) Max: 99.1 F (37.3 C) Physical Assessment: General appearance: alert, cooperative and no distress Mental Status: oriented to person, place and time and normal affect Lungs: clear to auscultation bilaterally, normal effort Heart: regular rate and rhythm, no murmur Abdomen: soft, nontender, nondistended, normal bowel sounds, no masses, hepatomegaly, splenomegaly Extremities: no edema, redness, tenderness in the calves Skin: no gross lesions, rashes, induration Data Review: Labs and Imaging: CBC: Recent Labs 05/01/24 1442 05/02/24 0238 05/03/24 0414 05/04/24 0200 WBC 25.1* 22.8* 18.2* 16.0* HGB 12.7 10.4* 9.5* 9.5* MCV 86.2 87.4 97.7 85.2 RDW 14.6* 14.3 14.5* 14.0 PLT 469* 322 304 319 ANEMIA STUDIES: No results for input(s): TIBC , FERRITIN , [id number] , FOLATE , OCCULTBLD in the last 72 hours. Invalid input(s): LABIRON BMP: Recent Labs 05/01/24 1442 05/02/24 0238 05/02/24 0832 05/03/24 0414 NA 136 133* -- 134* K 3.0* 3.4* 3.5* 3.7 CL 94* 99 -- 104 CO2 26 23 -- 13* BUN 3* 3* -- 3* CREATININE 0.7 0.5* -- 0.5* GLUCOSE 129* 82 -- 60* CALCIUM 9.3 8.2* -- 7.9* MG -- 1.5* -- -- LFTS: Recent Labs 05/01/24 1442 05/02/24 0238 ALKPHOS 117* 78 ALT 14 8* AST 19 11 BILITOT 0.5 0.7 BILIDIR -- 0.4* Other pertinent labs: Gastroenterology impression: Crohn's disease with pelvic abscesses s/p IR drainage yesterday -No drain placed, 18 ml cloudy fluid removed -HX of small bowel resection 2006 Leukocytosis secondary to above RLQ pain-improving Plan: Recommend continue antibiotics Diet per general surgery Supportive care per primary Will follow This plan was formulated in collaboration with Dr. Anastasia MD Thank you for allowing me to participate in the care of your patient. Please feel free to contact me with any questions or concerns. [facility] Gastroenterology Leroy De La Vega APRN - [facility] [phone] 05/04/2024 9:58 AM Estimated time of mins reviewing chart, assessing patient and formulating plan of care This note was created with the assistance of a speech-recognition program. Although the intention is to generate a document that actually reflects the content of the visit, no guarantees can be provided that every mistake has been identified and corrected by editing. Associated attestation - Maru Maguire MD - 05/04/2024 10:18 PM EDT Attested: I have discussed the care of Francine Hobson and I have examined the patient myselft and taken ros and hpi , including pertinent history and exam findings, with the author of this note . I have reviewed the price elements of all parts of the encounter with the nurse practitioner/resident. I agree with the assessment, plan and orders as documented by the above health care provider with the following addendum Impression- Crohn's disease complicated by intra-abdominal abscess Plan- IV antibiotics More than 50% of the time was spent taking care of this patient in addition to the nurse practitioner time. That also included history taking follow-up physical examination and review of system. Electronically signed by Maru Maguire MD Images from the original note were not included. [facility] Office: [phone] Marco Delarosa DO, Dominic Gonzalez DO, Clifton Blanc DO, Froylan Snowden DO, Paula Jensen MD, Radha Greer MD, Nitish Parra MD, Maya Hernández MD, Porfirio García MD, Norma Smith MD, Tanya Mercado MD, Eloy Alves DO, Heidi Roche MD, Arthur Schroeder MD, Jose Manuel Delarosa DO, Shikha Pastrana MD, Obed Lilly DO, Rosangela Koehler MD, Alysa De Santiago MD, Dianne Agudelo MD, Judith Nicole MD, London Morales MD, Gamal Granger MD, Abby Salgado MD, Nereyda Lucas MD, Dru Shannon MD, Shahid Reddy MD, Ashley Schaffer DO, Cruzito Holloway MD, Alix Acosta CNP, Shefali Hills CNP, Ashley Baker CNP, Muna Brandon DNP, Neida Mars CNP, Jigna De Dios CNP, Angelina Peguero CNP, Adwoa Lei CNP, Carmen Wray PA-C, Kathy Apple PA-C, Jaz Castaneda CNP, Robert Huertas CNP, Vanessa Saleh CNP, Josefina Higgins, RONEL, Lissett Root, RONEL, Lu Cooley, RONEL [facility] IN-PATIENT SERVICE [facility] Progress Note 05/04/2024 7:52 AM Name: Francine Hobson Acct: [id number] Room: [address] [place] [address] Day: 3 Admit Date: 05/01/2024 2:13 PM PCP: No primary care provider on file. Code Status: Full Code Subjective: C/C: Chief Complaint Patient presents with Abdominal Pain Interval History Status: not changed. Up in bathroom with active nausea with vomiting. Continued complaints of abdominal pain. Pelvic abscess drained in IR 05/03 with 18ml fluid drained. Brief History: 38-year-old female past medical history of Crohn's disease, history of ileocecal resection, anxiety depression, vitamin D deficiency presents with abdominal pain. Concern for Crohn's with abscess. Colorectal surgery, GI, IR following patient. Underwent CT abdomen pelvis on 05/02/2024. Review of Systems: Constitutional: negative for chills, fevers, sweats Respiratory: negative for cough, dyspnea on exertion, shortness of breath, wheezing Cardiovascular: negative for chest pain, chest pressure/discomfort, lower extremity edema, palpitations Gastrointestinal: (+) for abdominal pain, NO constipation, (+) diarrhea, nausea and vomiting Neurological: negative for dizziness, headache Medications: Allergies: Allergies Allergen Reactions Motrin [Ibuprofen] Nsaids Current Meds: Scheduled Meds: vancomycin 1,000 mg IntraVENous Q8H vancomycin (VANCOCIN) intermittent dosing (placeholder) Other RX Placeholder citalopram 40 mg Oral Daily pantoprazole (PROTONIX) 40 mg in sodium chloride (PF) 0.9 % 10 mL injection 40 mg IntraVENous Daily sodium chloride flush 5-40 mL IntraVENous 2 times per day piperacillin-tazobactam 3,375 mg IntraVENous Q8H Continuous Infusions: sodium chloride 75 mL/hr at 05/03/24 0613 sodium chloride 10 mL/hr at 05/03/24 1836 PRN Meds: diazePAM, LORazepam, [Held by provider] dicyclomine, sodium chloride flush, sodium chloride, potassium chloride OR potassium alternative oral replacement OR potassium chloride, ondansetron OR ondansetron, [Held by provider] polyethylene glycol, bisacodyl, acetaminophen OR acetaminophen, LORazepam, fentanNYL Data: Past Medical History: has a past medical history of Crohn disease (HCC). Social History: reports that she has been smoking cigarettes. She has never used smokeless tobacco. She reports current alcohol use. She reports current drug use. Drug: Marijuana ([place]). Family History: History reviewed. No pertinent family history. Vitals: BP 103/65 Pulse 85 Temp 98.1 F (36.7 C) (Oral) Resp 15 Ht 1.689 m (5' 6.5 ) Wt 55.4 kg (122 lb 2.2 oz) LMP 04/28/2024 SpO2 97% BMI 19.42 kg/m Temp (24hrs), Av.6 F (37 C), Min:98.1 F (36.7 C), Max:99.1 F (37.3 C) No results for input(s): POCGLU in the last 72 hours. I/O (24Hr): Intake/Output Summary (Last 24 hours) at 05/04/2024 0752 Last data filed at 05/03/2024 2000 Gross per 24 hour Intake 100 ml Output -- Net 100 ml Labs: Hematology: Recent Labs 05/02/24 0238 05/03/24 0414 05/04/24 0200 WBC 22.8* 18.2* 16.0* RBC 3.73* 3.53* 3.59* HGB 10.4* 9.5* 9.5* HCT 32.6* 34.5* 30.6* MCV 87.4 97.7 85.2 MCH 27.9 26.9 26.5 MCHC 31.9 27.5* 31.0 RDW 14.3 14.5* 14.0 PLT 322 304 319 MPV 9.3 9.1 9.1 INR 1.2 -- -- Chemistry: Recent Labs 05/01/24 1442 05/01/24 1851 05/02/24 0238 05/02/24 0832 05/02/24 1417 05/03/24 0414 05/04/24 0200 NA 136 -- 133* -- -- 134* -- K 3.0* -- 3.4* 3.5* -- 3.7 -- CL 94* -- 99 -- -- 104 -- CO2 26 -- 23 -- -- 13* -- GLUCOSE 129* -- 82 -- -- 60* -- BUN 3* -- 3* -- -- 3* -- CREATININE 0.7 -- 0.5* -- -- 0.5* -- MG -- -- 1.5* -- -- -- -- ANIONGAP 16 -- 11 -- -- 17* -- LABGLOM >90 -- >90 -- -- >90 -- CALCIUM 9.3 -- 8.2* -- -- 7.9* -- LACTACIDWB 2.4* < > 0.7 0.8 0.8 0.6* 0.5* < > = values in this interval not displayed. Recent Labs 05/01/24 1442 05/02/24 0238 AST 19 11 ALT 14 8* ALKPHOS 117* 78 BILITOT 0.5 0.7 BILIDIR -- 0.4* LIPASE 20 -- ABG:No results found for: POCPH , PHART , PH , POCPCO2 , BUD3DAT , PCO2 , POCPO2 , PO2ART , PO2 , POCHCO3 , XQF1ANK , HCO3 , NBEA , PBEA , BEART , BE , THGBART , THB , ZAB9GZB , JKCP2NSM , P1QGZRXL , O2SAT , FIO2 Lab Results Component Value Date/Time SPECIAL Site: Body Fluid 05/03/2024 06:05 PM Lab Results Component Value Date/Time CULTURE NO GROWTH 12 HOURS 05/03/2024 06:05 PM Radiology: CT ABDOMEN PELVIS W IV CONTRAST Additional Contrast? Oral and Rectal Result Date: 05/02/2024 1. Unchanged appearance of active Crohn's disease with complex multiloculated abscess without definite fistula seen on this examination. Partial small bowel obstruction given dilated proximal bowel US DUP ABD PEL RETRO SCROT LIMITED Result Date: 05/01/2024 1. Right ovarian 5.5 cm simple cystic structure most compatible with dominant follicle. 2. Otherwise, unremarkable pelvic ultrasound. RECOMMENDATIONS: Pathology: Right ovarian probable benign cyst measuring 5.4 cm.Recommend follow-up pelvic ultrasound in 3-6 months. US NON OB TRANSVAGINAL Result Date: 05/01/2024 1. Right ovarian 5.5 cm simple cystic structure most compatible with dominant follicle. 2. Otherwise, unremarkable pelvic ultrasound. RECOMMENDATIONS: Pathology: Right ovarian probable benign cyst measuring 5.4 cm.Recommend follow-up pelvic ultrasound in 3-[address] ABDOMEN PELVIS W IV CONTRAST Additional Contrast? None Result Date: 05/01/2024 Findings compatible with active Crohn's disease with complex fluid collection associated with inflamed small bowel in the lower abdomen and pelvis and possible abscess, as described. Possible fistula versus focal area of narrowing in the sigmoid colon. No evidence for bowel obstruction. These findings could be further delineated with follow-up imaging utilizing oral contrast. Prominent cystic structure in the right pelvis may represent an adnexal cyst versus loculated fluid collection, for which attention to on follow-up imaging is recommended. Physical Examination: General appearance: alert, cooperative. Appears unwell. Mental Status: oriented to person, place and time and normal affect Lungs: clear to auscultation bilaterally, normal effort Heart: regular rate and rhythm, no murmur Abdomen: soft, nontender, nondistended, normal bowel sounds, no masses, hepatomegaly, splenomegaly Extremities: no edema, redness, tenderness in the calves Skin: no gross lesions, rashes, induration Assessment: Hospital Problems Last Modified POA * (Principal) Intra-abdominal abscess (HCC) 05/01/2024 Yes Crohn's disease with complication (HCC) 05/01/2024 Yes Crohn's colitis, other complication (HCC) 05/02/2024 Yes Partial small bowel obstruction (HCC) 05/02/2024 Yes Depression, unspecified 05/01/2024 Yes Generalized anxiety disorder with panic attacks 05/01/2024 Yes Generalized abdominal pain 05/02/2024 Yes Crohn's disease of colon with abscess (HCC) 05/02/2024 Yes Plan: Intra-abdominal abscess with Crohn's flare: Colorectal surgery and GI following. Aspiration of pelvic abscess per IR on 05/03. Follow culture. Continue Vancomycin and Zosyn. PRN analgesia. GI prophylaxis: Protonix. DIONISIO ZHAO NP 05/04/2024 7:[address] Katz was present throughout and performed the entire procedure. Hemant Katz Colorectal Surgery Colorectal Surgery: Daily Progress Note PATIENT NAME: Francine Hobson TODAY'S DATE: 05/04/2024, 6:46 AM SUBJECTIVE: Pt seen and examined at bedside. Afebrile.Hemodynamically stable. Pt reports some slight symptomatic improvement. States that her back pain is slightly improved from previous. Still reports dysuria, lower abdominal pain. She is voiding appropriately and having bowel function. WBC downtrending. OBJECTIVE: VITALS: BP 103/65 Pulse 85 Temp 98.1 F (36.7 C) (Oral) Resp 15 Ht 1.689 m (5' 6.5 ) Wt 55.4 kg (122 lb 2.2 oz) LMP 04/28/2024 SpO2 97% BMI 19.42 kg/m INTAKE/OUTPUT: Intake/Output Summary (Last 24 hours) at 05/04/2024 0646 Last data filed at 05/03/20241999 Gross per 24 hour Intake 100 ml Output -- Net 100 ml PHYSICAL EXAM: CONSTITUTIONAL: awake, alert, mild distress and normal weight HEENT: Normocephalic/atraumatic, without obvious abnormality. NECK: Supple, symmetrical, trachea midline CARDIOVASCULAR: Regular rate and rhythm LUNGS: equal chest rise and fall, no increased WOB, no audible stridor or wheeze ABDOMEN: Distended, severely tender in pelvic region bilaterally MUSCULOSKELETAL: Muscle strength intact in all extremities bilaterally. NEUROLOGIC: Gross motor intact without focal weakness. SKIN: No cyanosis, rashes, or edema noted. Orientation: oriented to person, place, and time Data: CBC with Differential: Lab Results Component Value Date/Time WBC 16.0 05/04/2024 02:00 AM RBC 3.59 05/04/2024 02:00 AM HGB 9.5 05/04/2024 02:00 AM HCT 30.6 05/04/2024 02:00 AM PLT 319 05/04/2024 02:00 AM MCV 85.2 05/04/2024 02:00 AM MCH 26.5 05/04/2024 02:00 AM MCHC 31.0 05/04/2024 02:00 AM RDW 14.0 05/04/2024 02:00 AM LYMPHOPCT 5 05/04/2024 02:00 AM MONOPCT 5 05/04/2024 02:00 AM EOSPCT 1 05/04/2024 02:00 AM BASOPCT 0 05/04/2024 02:00 AM MONOSABS 0.79 05/04/2024 02:00 AM LYMPHSABS 0.81 05/04/2024 02:00 AM EOSABS 0.18 05/04/2024 02:00 AM BASOSABS 0.03 05/04/2024 02:00 AM BMP: Lab Results Component Value Date/Time NA 134 05/03/2024 04:14 AM K 3.7 05/03/2024 04:14 AM CL 104 05/03/2024 04:14 AM CO2 13 05/03/2024 04:14 AM BUN 3 05/03/2024 04:14 AM CREATININE 0.5 05/03/2024 04:14 AM CALCIUM 7.9 05/03/2024 04:14 AM LABGLOM >90 05/03/2024 04:14 AM LABGLOM >60 12/12/2022 03:33 AM GLUCOSE 60 05/03/2024 04:14 AM Radiology Review: CT ABDOMEN PELVIS W IV CONTRAST Additional Contrast? Oral and Rectal Result Date: 05/02/2024 1. Unchanged appearance of active Crohn's disease with complex multiloculated abscess without definite fistula seen on this examination. Partial small bowel obstruction given dilated proximal bowel ASSESSMENT: Active Hospital Problems Diagnosis Date Noted Generalized abdominal pain [R10.84] 05/02/2024 Crohn's disease of colon with abscess (HCC) [K50.114] 05/02/2024 Intra-abdominal abscess (HCC) [K65.1] 05/01/2024 Crohn's colitis, other complication (HCC) [K50.118] 01/26/2024 Partial small bowel obstruction (HCC) [K56.600] 01/26/2024 Crohn's disease with complication (HCC) [K50.919] 12/12/2022 Generalized anxiety disorder with panic attacks [F41.1, F41.0] 11/24/2022 Depression, unspecified [F32.A] 11/24/2022 38-year-old female with Crohn's flare, pelvic abscesses Plan: -Patient seen and evaluated. History, physical exam, laboratory, and radiographic findings reviewed and discussed with attending. -Continue IV antibiotics -Monitor trend of WBC -Monitor electrolytes. Recommend K >4, Mag >2 -Appreciate GI recommendations. -Pain and nausea control as needed -Monitor vitals per unit standard -Encourage I-S, deep breathing, and cough -Diet: NPO -Remainder of plan and disposition per primary team. Comprehensive Nutrition Assessment Type and Reason for Visit: Initial, Positive nutrition screen Nutrition Recommendations/Plan: Continue NPO. Recommend low fiber diet when medically able. Will monitor labs, weights, intake, GI status, and plan of care. 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 Seen for positive nutrition screen. Pt has PMH of crohn's disease. Per conversation with pt and visitor pt knows what foods she can tolerate and often will put herself on liquid diet when having flair ups. 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 Nutrition Related Findings: No edema. LBM 05/02, hypoactive bowel sounds. Labs: Na 134, Glu 60, Ca 7.9. Meds reviewed. Wound Type: None Current Nutrition Intake & Therapies: Average Meal Intake: NPO Average Supplements Intake: NPO Diet NPO Exceptions are: Ice Chips Anthropometric Measures: Height: 168.9 cm (5' 6.5 ) [place] Body Weight (IBW): 132 lbs (60 kg) Current Body Weight: 55.4 kg (122 lb 2.2 oz), 92.5 % IBW. Current BMI (kg/m2): 19.4 Usual Body Weight: 56.7 kg (125 lb) (X3 months) % Weight Change (Calculated): -2.3 BMI Categories: Normal Weight (BMI 18.5-24.9) Estimated Daily Nutrient Needs: Energy Requirements Based On: Kcal/kg Weight Used for Energy Requirements: Current Energy (kcal/day): 8008-6753 kcal/d per 25-30 kcal/kg Weight Used for Protein Requirements: Current Protein (g/day): 67-78 g/d per 1.2-1.4 g/kg Method Used for Fluid Requirements: 1 ml/kcal Fluid (ml/day): or per physician Nutrition Diagnosis: Inadequate protein-energy intake related to altered GI function as evidenced by NPO or clear liquid status due to medical condition, poor intake prior to admission Nutrition Interventions: Food and/or Nutrient Delivery: Continue NPO Nutrition Education/Counseling: No recommendation at this time Coordination of Nutrition Care: Continue to monitor while inpatient Goals: Goals: Initiate PO diet Type of Goal: New goal Previous Goal Met: New Goal Nutrition Monitoring and Evaluation: Behavioral-Environmental Outcomes: None Identified Food/Nutrient Intake Outcomes: Diet Advancement/Tolerance Physical Signs/Symptoms Outcomes: Biochemical Data, Skin, Weight, GI Status, Fluid Status or Edema Discharge Planning: Too soon to determine FELIBERTO JANSEN Contact: Images from the original note were not included. [facility] Office: [phone] Marco Delarosa DO, Dominic Gonzalez DO, Clifton Blanc DO, Froylan Snowden DO, Paula Jensen MD, Radha Greer MD, Nitish Parra MD, Maya Hernández MD, Porfirio García MD, Norma Smith MD, Tanya Mercado MD, Eloy Alves DO, Heidi Roche MD, Arthur Schroeder MD, Jose Manuel Delarosa DO, Shikha Pastrana MD, Obed Lilly DO, Rosangela Koehler MD, Alysa De Santiago MD, Dianne Agudelo MD, Judith Nicole MD, London Morales MD, Gamal Granger MD, Abby Salgado MD, Nereyda Lucas MD, Dru Shannon MD, Shahid Reddy MD, Ashley Schaffer DO, Cruzito Holloway MD, Alix Acosta, BROACH TROUBLE SHOOTER, Shefali Hills CNP, Ashley Baker, BROACH TROUBLE SHOOTER, Muna Brandon, CRESENCIO, Neida Mars, BROACH TROUBLE SHOOTER, Jigna De Dios, BROACH TROUBLE SHOOTER, Angelina Peguero, BROACH TROUBLE SHOOTER, Adwoa Lei CNP, JOHN AsifC, JOHN TylerC, Jaz Castaneda, RONEL, Robert Huertas, RONEL, Vanessa Saleh, RONEL, Josefina Higgins, BROACH TROUBLE SHOOTER, Lissett Root CNP, uL Cooley CNP [facility] IN-PATIENT SERVICE [facility] Progress Note 05/03/2024 2:32 PM Name: Francine Hobson Acct: [id number] Room: [address] [place] [address] Day: 2 Admit Date: 05/01/2024 2:13 PM PCP: No primary care provider on file. Code Status: Full Code Subjective: C/C: Chief Complaint Patient presents with Abdominal Pain Interval History Status: not changed. Patient seen examined bedside. Still having abdominal pain. Not hungry Brief History: 38-year-old female past medical history of Crohn's disease, history of ileocecal resection, anxiety depression, vitamin D deficiency presents with abdominal pain. Concern for Crohn's with abscess. Colorectal surgery, GI, IR following patient. Underwent CT abdomen pelvis on 05/02/2024. Review of Systems: Constitutional: negative for chills, fevers, sweats Respiratory: negative for cough, dyspnea on exertion, shortness of breath, wheezing Cardiovascular: negative for chest pain, chest pressure/discomfort, lower extremity edema, palpitations Gastrointestinal: Positive for abdominal pain, positive for constipation Neurological: negative for dizziness, headache Medications: Allergies: Allergies Allergen Reactions Motrin [Ibuprofen] Nsaids Current Meds: Scheduled Meds: vancomycin 1,000 mg IntraVENous Q8H vancomycin (VANCOCIN) intermittent dosing (placeholder) Other RX Placeholder [Held by provider] citalopram 40 mg Oral Daily pantoprazole (PROTONIX) 40 mg in sodium chloride (PF) 0.9 % 10 mL injection 40 mg IntraVENous Daily sodium chloride flush 5-40 mL IntraVENous 2 times per day piperacillin-tazobactam 3,375 mg IntraVENous Q8H Continuous Infusions: sodium chloride 75 mL/hr at 05/03/24 0613 sodium chloride Stopped (05/03/24 0406) PRN Meds: diazePAM, LORazepam, [Held by provider] dicyclomine, sodium chloride flush, sodium chloride, potassium chloride OR potassium alternative oral replacement OR potassium chloride, ondansetron OR ondansetron, [Held by provider] polyethylene glycol, bisacodyl, acetaminophen OR acetaminophen, LORazepam, fentanNYL Data: Past Medical History: has a past medical history of Crohn disease (HCC). Social History: reports that she has been smoking cigarettes. She has never used smokeless tobacco. She reports current alcohol use. She reports current drug use. Drug: Marijuana ([place]). Family History: History reviewed. No pertinent family history. Vitals: BP 112/60 Pulse (!) 108 Temp 99.1 F (37.3 C) Resp 16 Ht 1.689 m (5' 6.5 ) Wt 55.4 kg (122 lb 2.2 oz) LMP 04/28/2024 SpO2 97% BMI 19.42 kg/m Temp (24hrs), Av.6 F (37 C), Min:97.2 F (36.2 C), Max:99.5 F (37.5 C) No results for input(s): POCGLU in the last 72 hours. I/O (24Hr): Intake/Output Summary (Last 24 hours) at 05/03/2024 1432 Last data filed at 05/03/2024 0613 Gross per 24 hour Intake 1574.69 ml Output -- Net 1574.69 ml Labs: Hematology: Recent Labs 05/01/24 1442 05/02/24 0238 05/03/24 0414 WBC 25.1* 22.8* 18.2* RBC 4.65 3.73* 3.53* HGB 12.7 10.4* 9.5* HCT 40.1 32.6* 34.5* MCV 86.2 87.4 97.7 MCH 27.3 27.9 26.9 MCHC 31.7 31.9 27.5* RDW 14.6* 14.3 14.5* PLT 469* 322 304 MPV 9.7 9.3 9.1 INR -- 1.2 -- Chemistry: Recent Labs 05/01/24 1442 05/01/24 1851 05/02/24 0238 05/02/24 0832 05/02/24 1417 05/03/24 0414 NA 136 -- 133* -- -- 134* K 3.0* -- 3.4* 3.5* -- 3.7 CL 94* -- 99 -- -- 104 CO2 26 -- 23 -- -- 13* GLUCOSE 129* -- 82 -- -- 60* BUN 3* -- 3* -- -- 3* CREATININE 0.7 -- 0.5* -- -- 0.5* MG -- -- 1.5* -- -- -- ANIONGAP 16 -- 11 -- -- 17* LABGLOM >90 -- >90 -- -- >90 CALCIUM 9.3 -- 8.2* -- -- 7.9* LACTACIDWB 2.4* < > 0.7 0.8 0.8 0.6* < > = values in this interval not displayed. Recent Labs 05/01/24 1442 05/02/24 0238 AST 19 11 ALT 14 8* ALKPHOS 117* 78 BILITOT 0.5 0.7 BILIDIR -- 0.4* LIPASE 20 -- ABG:No results found for: POCPH , PHART , PH , POCPCO2 , PAV2ILD , PCO2 , POCPO2 , PO2ART , PO2 , POCHCO3 , ARC5ATS , HCO3 , NBEA , PBEA , BEART , BE , THGBART , THB , EOW8UMO , IXFK2MAZ , X7AMTRVG , O2SAT , FIO2 Lab Results Component Value Date/Time SPECIAL RAC 5ML 05/01/2024 04:17 PM Lab Results Component Value Date/Time CULTURE NO GROWTH 1 DAY 05/01/2024 04:17 PM Radiology: CT ABDOMEN PELVIS W IV CONTRAST Additional Contrast? Oral and Rectal Result Date: 05/02/2024 1. Unchanged appearance of active Crohn's disease with complex multiloculated abscess without definite fistula seen on this examination. Partial small bowel obstruction given dilated proximal bowel US DUP ABD PEL RETRO SCROT LIMITED Result Date: 05/01/2024 1. Right ovarian 5.5 cm simple cystic structure most compatible with dominant follicle. 2. Otherwise, unremarkable pelvic ultrasound. RECOMMENDATIONS: Pathology: Right ovarian probable benign cyst measuring 5.4 cm.Recommend follow-up pelvic ultrasound in 3-6 months. US NON OB TRANSVAGINAL Result Date: 05/01/2024 1. Right ovarian 5.5 cm simple cystic structure most compatible with dominant follicle. 2. Otherwise, unremarkable pelvic ultrasound. RECOMMENDATIONS: Pathology: Right ovarian probable benign cyst measuring 5.4 cm.Recommend follow-up pelvic ultrasound in 3-[address] ABDOMEN PELVIS W IV CONTRAST Additional Contrast? None Result Date: 05/01/2024 Findings compatible with active Crohn's disease with complex fluid collection associated with inflamed small bowel in the lower abdomen and pelvis and possible abscess, as described. Possible fistula versus focal area of narrowing in the sigmoid colon. No evidence for bowel obstruction. These findings could be further delineated with follow-up imaging utilizing oral contrast. Prominent cystic structure in the right pelvis may represent an adnexal cyst versus loculated fluid collection, for which attention to on follow-up imaging is recommended. Physical Examination: General appearance: alert, cooperative and no distress Mental Status: oriented to person, place and time and normal affect Lungs: clear to auscultation bilaterally, normal effort Heart: regular rate and rhythm, no murmur Abdomen: soft, hypoactive bowel sounds, tenderness in all regions of abdomen. No guarding, slightly less distended than yesterday Extremities: no edema, redness, tenderness in the calves Skin: no gross lesions, rashes, induration Assessment: Hospital Problems Last Modified POA * (Principal) Intra-abdominal abscess (HCC) 05/01/2024 Yes Crohn's disease with complication (HCC) 05/01/2024 Yes Crohn's colitis, other complication (HCC) 05/02/2024 Yes Partial small bowel obstruction (HCC) 05/02/2024 Yes Depression, unspecified 05/01/2024 Yes Generalized anxiety disorder with panic attacks 05/01/2024 Yes Generalized abdominal pain 05/02/2024 Yes Crohn's disease of colon with abscess (HCC) 05/02/2024 Yes Plan: Crohn's flareup with intra-abdominal abscesses. Appreciate GI, colorectal surgery, IR recommendations. Possible aspiration today. Continue n.p.o., Protonix IV, continue Zosyn Continue valium 5 mg q6 prn 1 time dose of ativan PRN ordered. Discussed with ONUR Mercado MD 05/03/2024 2:32 PM [facility] Pharmacokinetic Monitoring Service - Vancomycin Consulting Provider: Dr. Andres Indication: intra-abdominal infection Target Concentration: Goal AUC/HARPER 400-600 mg*hr/L Day of Therapy: 3 Additional Antimicrobials: zosyn Pertinent Laboratory Values: Wt Readings from Last 1 Encounters: 05/01/24 55.4 kg (122 lb 2.2 oz) Temp Readings from Last 1 Encounters: 05/03/24 97.2 F (36.2 C) Estimated Creatinine Clearance: 136 mL/min (A) (based on SCr of 0.5 mg/dL (L)). Recent Labs 05/02/24 0238 05/03/24 0414 CREATININE 0.5* 0.5* BUN 3* 3* WBC 22.8* 18.2* Procalcitonin: Pertinent Cultures: Culture Date Source Results 05/01 blood No growth day 1 MRSA Nasal Swab: N/A. Non-respiratory infection. Recent vancomycin administrations vancomycin (VANCOCIN) 750 mg in sodium chloride 0.9 % 250 mL IVPB ([id number]) () Restarted 05/03/24 0435 750 mg New Bag 0409 750 mg New Bag 05/02/24 2007 750 mg New Bag 1303 750 mg New Bag 0404 vancomycin (VANCOCIN) 1,000 mg in sodium chloride 0.9 % 250 mL IVPB ([id number]) (mg) 1,000 mg New Bag 05/01/24 1638 Assessment: Date/Time Current Dose Concentration Timing of Concentration (h) AUC 05/03 1000 750mg q8h 5.6 trough 325 Note: Serum concentrations collected for AUC dosing may appear elevated if collected in close proximity to the dose administered, this is not necessarily an indication of toxicity Plan: Current dosing regimen is sub-therapeutic Increase dose to 1000mg IV q8h starting now Repeat vancomycin concentration will be ordered when clinically indicated. Pharmacy will continue to monitor patient and adjust therapy as indicated Thank you for the consult, Obdulia Hagen PharmSelvinD., [facility] 05/03/2024 9:55 AM [facility] Progress Note Francine Hobson is a 38 y.o. female patient. Hospitalization Day:2 Chief consult reason: Crohn's disease Subjective: Patient seen and examined. Patient reports ongoing significant abdominal pain. Also reporting increased abdominal pain when having to pass urine as well as reporting dysuria Objective: VITALS: BP 112/60 Pulse (!) 108 Temp 99.5 F (37.5 C) (Oral) Resp 16 Ht 1.689 m (5' 6.5 ) Wt 55.4 kg (122 lb 2.2 oz) LMP 04/28/2024 SpO2 99% BMI 19.42 kg/m TEMPERATURE: Current - Temp: 99.5 F (37.5 C); Max - Temp Av.3 F (37.4 C) Min: 99 F (37.2 C) Max: 99.5 F (37.5 C) Physical Assessment: General appearance: Acute on chronically ill, alert, cooperative and no distress Mental Status: oriented to person, place and time and normal affect Lungs: clear to auscultation bilaterally, normal effort Heart: regular rate and rhythm, no murmur Abdomen: soft, exquisitely tender nondistended, +bowel sounds, Extremities: no edema, no redness, No clubbing Skin: warm, dry, no gross lesions or rashes CURRENT MEDICATIONS: Scheduled Meds: vancomycin (VANCOCIN) intermittent dosing (placeholder) Other RX Placeholder vancomycin 750 mg IntraVENous Q8H [Held by provider] citalopram 40 mg Oral Daily pantoprazole (PROTONIX) 40 mg in sodium chloride (PF) 0.9 % 10 mL injection 40 mg IntraVENous Daily sodium chloride flush 5-40 mL IntraVENous 2 times per day piperacillin-tazobactam 3,375 mg IntraVENous Q8H Continuous Infusions: sodium chloride 75 mL/hr at 05/03/24 0613 sodium chloride Stopped (05/03/24 0406) PRN Meds:[Held by provider] dicyclomine, sodium chloride flush, sodium chloride, potassium chloride OR potassium alternative oral replacement OR potassium chloride, ondansetron OR ondansetron, [Held by provider] polyethylene glycol, bisacodyl, acetaminophen OR acetaminophen, LORazepam, fentanNYL Data Review: LABS and IMAGING: CBC Recent Labs 05/01/24 1442 05/02/2423705/03/24 041 WBC 25.1* 22.8* 18.2* HGB 12.7 10.4* 9.5* HCT 40.1 32.6* 34.5* MCV 86.2 87.4 97.7 MCHC 31.7 31.9 27.5* RDW 14.6* 14.3 14.5* PLT 469* 322 304 Immature PLTs No results found for: PLTFLUORE PT/INR Recent Labs 05/02/24237 PROTIME 15.4* INR 1.2 ANEMIA STUDIES No results for input(s): IRONPERSAT , TIBC , IRON , FERRITIN , [id number] , FOLATE , OCCULTBLD in the last 72 hours. BMP Recent Labs 05/01/24144105/02/2423705/02/24 0832 05/03/244 NA 136 133* -- 134* K 3.0* 3.4* 3.5* 3.7 CL 94* 99 -- 104 CO2 26 23 -- 13* BUN 3* 3* -- 3* CREATININE 0.7 0.5* -- 0.5* GLUCOSE 129* 82 -- 60* CALCIUM 9.3 8.2* -- 7.9* MG -- 1.5* -- -- LFTS Recent Labs 05/01/24144105/02/24237 ALKPHOS 117* 78 ALT 14 8* AST 19 11 BILITOT 0.5 0.7 BILIDIR -- 0.4* ALBUMIN 3.7 2.8* AMYLASE/LIPASE/AMMONIA Recent Labs 05/01/241441 LIPASE 20 Acute Hepatitis Panel Lab Results Component Value Date/Time HEPBSAG NONREACTIVE 01/27/2024 03:21 AM HEPCAB NONREACTIVE 01/27/2024 03:21 AM HEPBIGM NONREACTIVE 01/27/2024 03:21 AM HEPAIGM NONREACTIVE 01/27/2024 03:21 AM HCV Genotype No components found for: HEPATITISCGENOTYPE HCV Quantitative No results found for: HCVQNT PT/INR Recent Labs 05/02/24 0238 PROTIME 15.4* INR 1.2 Cancer Markers: CEA: No results found for: CEA Ca 125: No results found for: CA125 Ca 19-9: No results found for: CA199 AFP: No results found for: AFP Lactic acid: Recent Labs 05/02/24 0832 05/02/24 1417 05/03/24 0414 LACTACIDWB 0.8 0.8 0.6* Radiology Review: CT A/P 05/01/2024 IMPRESSION: Findings compatible with active Crohn's disease with complex fluid collection associated with inflamed small bowel in the lower abdomen and pelvis and possible abscess, as described. Possible fistula versus focal area of narrowing in the sigmoid colon. No evidence for bowel obstruction. These findings could be further delineated with follow-up imaging utilizing oral contrast. Prominent cystic structure in the right pelvis may represent an adnexal cyst versus loculated fluid collection, for which attention to on follow-up imaging is recommended. CT A/P 05/02/2024 Small bowel and colon: Dilated proximal small bowel loops containing contrast with long segment narrowing involving a loop of ileum seen in the mid abdomen with circumferential wall thickening consistent with active inflammation. This is partially surrounded by the multiloculated abscess seen in the right lower abdomen measuring 7.1 by 7.5 cm on image 123. This is contiguous with 2 additional large abscesses seen in the right adnexa measuring 6.3 x 5.4 cm and in the upper pelvis in the midline measuring 5.3 x 4.8 cm. Overall similar to recent prior examination. Prior ileo seek ectomy. There is contrast seen within the small bowel as well as within the rectosigmoid colon without definite fistula seen on today's examination. Fluid seen in the left adnexa surrounding the narrowed sigmoid colon without definite fistula is similar to prior examination IMPRESSION: 1. Unchanged appearance of active Crohn's disease with complex multiloculated abscess without definite fistula seen on this examination. Partial small bowel obstruction given dilated proximal bowel ENDOSCOPY Principal Problem: Intra-abdominal abscess (HCC) Active Problems: Crohn's disease with complication (HCC) Crohn's colitis, other complication (HCC) Partial small bowel obstruction (HCC) Depression, unspecified Generalized anxiety disorder with panic attacks Generalized abdominal pain Crohn's disease of colon with abscess (HCC) Resolved Problems: * No resolved hospital problems. * GI Assessment: 38-year-old female with Crohn's ileocolitis s/p ileocecal resection 2005, intra-abdominal abscess 2006, recurrent partial small bowel obstruction who presents with abdominal pain. CT concerning for lower abdominal and pelvic abscess, possible fistula versus narrowing in sigmoid colon. GI consulted for Crohn's management 1. Crohn's disease with abdominal/pelvic abscesses -percutaneous drain not recommended for active Crohn's due to risk of developing enterocutaneous fistula. 2. Small bowel Crohn's disease with complications of prior intra-abdominal abscess, recurrent partial small bowel obstruction -Currently on Rinvoq for treatment. Has been without medications for several week 3. RLQ pain Recommendations: Requested CT-guided abscess aspiration to help guide antibiotic- Discussed with IR team Continue current antibiotic Patient will need to eventually start steroids once abscess improved Continue to hold Biologics for now Stool calprotectin, C. difficile, May need to consider nutritional support/TPN in near future pending patient's improvement Time spent reviewing chart, seeing patient, documentation and coordination of care for the above conditions, and discussing with attending: Around 45 minutes This plan was formulated in collaboration with Dr. Maguire Please feel free to contact me with any questions or concerns. Thank you for allowing me to participate in the care of your patient. Isabelle Gandhi, [employer] on 05/03/2024 at 6:44 AM [facility] Please note that this note was generated using a voice recognition dictation software. Although every effort was made to ensure the accuracy of this automated nuclear medicine supervisor, some errors in nuclear medicine supervisor may have occurred. Associated attestation - Maru Maguire MD - 05/03/2024 7:15 PM EDT Attested: I have discussed the care of Francine Hobson and I have examined the patient myselft and taken ros and hpi , including pertinent history and exam findings, with the author of this note . I have reviewed the price elements of all parts of the encounter with the nurse practitioner/resident. I agree with the assessment, plan and orders as documented by the above health care provider with the following addendum Impression- Crohn's disease complicated by intra-abdominal abscess Plan- IV Antibiotics IR consult for per-cutaneous drainage/ aspiration of abscess More than 50% of the time was spent taking care of this patient in addition to the nurse practitioner time. That also included history taking follow-up physical examination and review of system. Electronically signed by Maru Maguire MD Colorectal Surgery: Daily Progress Note PATIENT NAME: Francine Hobson TODAY'S DATE: 05/03/2024, 6:17 AM SUBJECTIVE: Pt seen and examined at bedside. Afebrile.Hemodynamically stable. IR unable to drain pelvic fluid collections. Pt reports abdominal pain and continued dysuria. WBC downtrending. OBJECTIVE: VITALS: BP 112/60 Pulse (!) 108 Temp 99.5 F (37.5 C) (Oral) Resp 16 Ht 1.689 m (5' 6.5 ) Wt 55.4 kg (122 lb 2.2 oz) LMP 04/28/2024 SpO2 99% BMI 19.42 kg/m INTAKE/OUTPUT: Intake/Output Summary (Last 24 hours) at 05/03/2024 0617 Last data filed at 05/03/2024 0613 Gross per 24 hour Intake 1574.69 ml Output -- Net 1574.69 ml PHYSICAL EXAM: CONSTITUTIONAL: awake, alert, mild distress and normal weight HEENT: Normocephalic/atraumatic, without obvious abnormality. NECK: Supple, symmetrical, trachea midline CARDIOVASCULAR: Regular rate and rhythm LUNGS: equal chest rise and fall, no increased WOB, no audible stridor or wheeze ABDOMEN: Distended, severely tender in pelvic region bilaterally MUSCULOSKELETAL: Muscle strength intact in all extremities bilaterally. NEUROLOGIC: Gross motor intact without focal weakness. SKIN: No cyanosis, rashes, or edema noted. Orientation: oriented to person, place, and time Data: CBC with Differential: Lab Results Component Value Date/Time WBC 18.2 05/03/2024 04:14 AM RBC 3.53 05/03/2024 04:14 AM HGB 9.5 05/03/2024 04:14 AM HCT 34.5 05/03/2024 04:14 AM PLT 304 05/03/2024 04:14 AM MCV 97.7 05/03/2024 04:14 AM MCH 26.9 05/03/2024 04:14 AM MCHC 27.5 05/03/2024 04:14 AM RDW 14.5 05/03/2024 04:14 AM LYMPHOPCT 5 05/03/2024 04:14 AM MONOPCT 4 05/03/2024 04:14 AM EOSPCT 1 05/03/2024 04:14 AM BASOPCT 0 05/03/2024 04:14 AM MONOSABS 0.73 05/03/2024 04:14 AM LYMPHSABS 0.91 05/03/2024 04:14 AM EOSABS 0.18 05/03/2024 04:14 AM BASOSABS 0.00 05/03/2024 04:14 AM BMP: Lab Results Component Value Date/Time NA 134 05/03/2024 04:14 AM K 3.7 05/03/2024 04:14 AM CL 104 05/03/2024 04:14 AM CO2 13 05/03/2024 04:14 AM BUN 3 05/03/2024 04:14 AM CREATININE 0.5 05/03/2024 04:14 AM CALCIUM 7.9 05/03/2024 04:14 AM LABGLOM >90 05/03/2024 04:14 AM LABGLOM >60 12/12/2022 03:33 AM GLUCOSE 60 05/03/2024 04:14 AM Radiology Review: CT ABDOMEN PELVIS W IV CONTRAST Additional Contrast? Oral and Rectal Result Date: 05/02/2024 1. Unchanged appearance of active Crohn's disease with complex multiloculated abscess without definite fistula seen on this examination. Partial small bowel obstruction given dilated proximal bowel US DUP ABD PEL RETRO SCROT LIMITED Result Date: 05/01/2024 1. Right ovarian 5.5 cm simple cystic structure most compatible with dominant follicle. 2. Otherwise, unremarkable pelvic ultrasound. RECOMMENDATIONS: Pathology: Right ovarian probable benign cyst measuring 5.4 cm.Recommend follow-up pelvic ultrasound in 3-6 months. US NON OB TRANSVAGINAL Result Date: 05/01/2024 1. Right ovarian 5.5 cm simple cystic structure most compatible with dominant follicle. 2. Otherwise, unremarkable pelvic ultrasound. RECOMMENDATIONS: Pathology: Right ovarian probable benign cyst measuring 5.4 cm.Recommend follow-up pelvic ultrasound in 3-[address] ABDOMEN PELVIS W IV CONTRAST Additional Contrast? None Result Date: 05/01/2024 Findings compatible with active Crohn's disease with complex fluid collection associated with inflamed small bowel in the lower abdomen and pelvis and possible abscess, as described. Possible fistula versus focal area of narrowing in the sigmoid colon. No evidence for bowel obstruction. These findings could be further delineated with follow-up imaging utilizing oral contrast. Prominent cystic structure in the right pelvis may represent an adnexal cyst versus loculated fluid collection, for which attention to on follow-up imaging is recommended. ASSESSMENT: Active Hospital Problems Diagnosis Date Noted Generalized abdominal pain [R10.84] 05/02/2024 Crohn's disease of colon with abscess (HCC) [K50.114] 05/02/2024 Intra-abdominal abscess (HCC) [K65.1] 05/01/2024 Crohn's colitis, other complication (HCC) [K50.118] 01/26/2024 Partial small bowel obstruction (HCC) [K56.600] 01/26/2024 Crohn's disease with complication (HCC) [K50.919] 12/12/2022 Generalized anxiety disorder with panic attacks [F41.1, F41.0] 11/24/2022 Depression, unspecified [F32.A] 11/24/2022 38-year-old female with Crohn's flare, pelvic abscesses Plan: -Patient seen and evaluated. History, physical exam, laboratory, and radiographic findings reviewed and discussed with attending. -Continue IV antibiotics -Monitor electrolytes. Recommend K >4, Mag >2 -Appreciate GI recommendations. -Pain and nausea control as needed -Monitor vitals per unit standard -Encourage I-S, deep breathing, and cough -Strict I/O's -Diet: NPO -Remainder of plan and disposition per primary team. I Dr. Katz saw and examined the patient. I have edited the above and agree with the above. Hemant Katz Colorectal Surgery Patient is refusing for lab draw. ANP Isaiah Acosta informed. Physician Progress Note PATIENT: FRANCINE HOBSON CSN #: [id number] : 1985 ADMIT DATE: 05/01/2024 2:13 PM DISCH DATE: RESPONDING PROVIDER #: Tanya Mercado MD QUERY TEXT: Pt admitted with Crohn's flare with pelvic abscess. Pt noted to have lactic acid of 2.4, WBC 25.1, HR 117. If possible, please document if you are evaluating and /or treating any of the following: The medical record reflects the following: Risk Factors: Crohn's flare with pelvic abscess Clinical Indicators: Lactic acid 2.4, WBC 25.1 and 22.8, HR 117. Temp 37.7 Presents with abd pain. Colorectal surgery consult: Crohn's flare, pelvic abscess and concern for fistulous connection to sigmoid versus small bowel CT abd pelvis with contrast: :active Crohn's disease with complex fluid collection associated with inflamed small bowel in the lower abdomen and pelvis and possible abscess, as described. Possible fistula versus focal area of narrowing in the sigmoid colon. Treatment: IV Zosyn and Vanco, IVFB x1 in ER, Colorectal surgery consult, CT abd pelvis with contrast. NPO. Thank-you, Elen Yun RN, CDS Options provided: -- Sepsis, present on admission -- Sepsis, present on admission, now resolved -- Crohn's flare and pelvic abscess without Sepsis -- Other - I will add my own diagnosis -- Disagree - Not applicable / Not valid -- Disagree - Clinically unable to determine / Unknown -- Refer to Clinical Documentation Reviewer PROVIDER RESPONSE TEXT: This patient has Crohn's flare with pelvic abscess without Sepsis. Query created by: Elen Yun on 05/02/2024 7:00 AM Electronically signed by: Tanya Mercado MD 05/02/2024 4:26 PM Images from the original note were not included. [facility] Office: [phone] Marco Delarosa DO, Dominic Gonzalez DO, Clifton Blanc DO, Froylan Snowden DO, Paula Jensen MD, Radha Greer MD, Nitish Parra MD, Maya Hernández MD, Porfirio García MD, Norma Smith MD, Tanya Mercado MD, Eloy Alves DO, Heidi Roche MD, Arthur Schroeder MD, Jose Manuel Delarosa DO, Shikha Pastrana MD, Obed Lilly DO, Rosangela Koehler MD, Alysa De Santiago MD, Dianne Agudelo MD, Judith Nicole MD, London Morales MD, Gamal Granger MD, Abby Salgado MD, Nereyda Lucas MD, Dru Shannon MD, Shahid Reddy MD, Ashley Schaffer DO, Cruzito Holloway MD, Alix Acosta, RONEL, [place] [employer], Ashley Baker, [employer], Muna Brandon, CRESENCIO, Neida Mars, [employer], Jigna De Dios, [employer], Angelina Peguero, [employer], Adwoa Lei, [employer], Carmen Wray, PA-C, Kathy Apple PA-C, Jaz Castaneda, [employer], Robert Huertas, [employer]ER, Vanessa Saleh, [employer], Josefina Higgins, [employer]ER, Lissett Root, [employer]ER, Lu Cooley, [employer]ER [place] Hospital IN-PATIENT SERVICE [facility] Progress Note 05/02/2024 12:23 PM Name: Francine Hobson Acct: [id number] Room: 0343/0343-02 Day: 1 Admit Date: 05/01/2024 2:13 PM PCP: No primary care provider on file. Code Status: Full Code Subjective: C/C: Chief Complaint Patient presents with Abdominal Pain Interval History Status: not changed. Patient seen examined bedside. Still having abdominal pain. She tried to stand up and noticed that she had multiple different types of abdominal pains. Recently had right lower quadrant pain as well as left lower quadrant pain. Left lower quadrant pain was worse with defecation. Denies any melena. Right lower quadrant pain seems persistent and did not change with defecation but did get worse with position. Also feeling a tight band stretching in the upper quadrants of her abdomen. Abdomen is distended and does have tenderness to palpation. White count still elevated 22.8. Brief History: 38-year-old female past medical history of Crohn's disease, history of ileocecal resection, anxiety depression, vitamin D deficiency presents with abdominal pain. Concern for Crohn's with abscess. Colorectal surgery, GI, IR following patient. Underwent CT abdomen pelvis on 05/02/2024. Unfortunately due to multiple abscesses drainage not recommended per interventional radiology. Review of Systems: Constitutional: negative for chills, fevers, sweats Respiratory: negative for cough, dyspnea on exertion, shortness of breath, wheezing Cardiovascular: negative for chest pain, chest pressure/discomfort, lower extremity edema, palpitations Gastrointestinal: Positive for abdominal pain, positive for constipation Neurological: negative for dizziness, headache Medications: Allergies: Allergies Allergen Reactions Motrin [Ibuprofen] Nsaids Current Meds: Scheduled Meds: vancomycin (VANCOCIN) intermittent dosing (placeholder) Other RX Placeholder vancomycin 750 mg IntraVENous Q8H [Held by provider] citalopram 40 mg Oral Daily pantoprazole (PROTONIX) 40 mg in sodium chloride (PF) 0.9 % 10 mL injection 40 mg IntraVENous Daily sodium chloride flush 5-40 mL IntraVENous 2 times per day piperacillin-tazobactam 3,375 mg IntraVENous Q8H Continuous Infusions: sodium chloride 75 mL/hr at 05/02/24 0519 sodium chloride 25 mL (05/02/24 0724) PRN Meds: [Held by provider] dicyclomine, sodium chloride flush, sodium chloride, potassium chloride OR potassium alternative oral replacement OR potassium chloride, ondansetron OR ondansetron, [Held by provider] polyethylene glycol, bisacodyl, acetaminophen OR acetaminophen, LORazepam, fentanNYL Data: Past Medical History: has a past medical history of Crohn disease (HCC). Social History: reports that she has been smoking cigarettes. She has never used smokeless tobacco. She reports current alcohol use. She reports current drug use. Drug: Marijuana ([place]). Family History: History reviewed. No pertinent family history. Vitals: BP 101/66 Pulse 96 Temp 99 F (37.2 C) (Oral) Resp 16 Ht 1.689 m (5' 6.5 ) Wt 55.4 kg (122 lb 2.2 oz) LMP 04/28/2024 SpO2 94% BMI 19.42 kg/m Temp (24hrs), Av.2 F (37.3 C), Min:98.7 F (37.1 C), Max:99.9 F (37.7 C) No results for input(s): POCGLU in the last 72 hours. I/O (24Hr): Intake/Output Summary (Last 24 hours) at 05/02/2024 1223 Last data filed at 05/02/2024 0519 Gross per 24 hour Intake 1669.22 ml Output -- Net 1669.22 ml Labs: Hematology: Recent Labs 05/01/24 1442 05/02/24 0238 WBC 25.1* 22.8* RBC 4.65 3.73* HGB 12.7 10.4* HCT 40.1 32.6* MCV 86.2 87.4 MCH 27.3 27.9 MCHC 31.7 31.9 RDW 14.6* 14.3 PLT 469* 322 MPV 9.7 9.3 INR -- 1.2 Chemistry: Recent Labs 05/01/24 1442 05/01/24 1851 05/02/24 0238 05/02/24 0832 NA 136 -- 133* -- K 3.0* -- 3.4* 3.5* CL 94* -- 99 -- CO2 26 -- 23 -- GLUCOSE 129* -- 82 -- BUN 3* -- 3* -- CREATININE 0.7 -- 0.5* -- MG -- -- 1.5* -- ANIONGAP 16 -- 11 -- LABGLOM >90 -- >90 -- CALCIUM 9.3 -- 8.2* -- LACTACIDWB 2.4* 0.9 0.7 0.8 Recent Labs 05/01/24 1442 05/02/24 0238 AST 19 11 ALT 14 8* ALKPHOS 117* 78 BILITOT 0.5 0.7 BILIDIR -- 0.4* LIPASE 20 -- ABG:No results found for: POCPH , PHART , PH , POCPCO2 , XYR0UFP , PCO2 , POCPO2 , PO2ART , PO2 , POCHCO3 , PGT0DPY , HCO3 , NBEA , PBEA , BEART , BE , THGBART , THB , HQK4TZJ , ZFSM2GIS , B9HMKXUC , O2SAT , FIO2 Lab Results Component Value Date/Time SPECIAL RAC 5ML 05/01/2024 04:17 PM Lab Results Component Value Date/Time CULTURE NO GROWTH 12 HOURS 05/01/2024 04:17 PM Radiology: CT ABDOMEN PELVIS W IV CONTRAST Additional Contrast? Oral and Rectal Result Date: 05/02/2024 1. Unchanged appearance of active Crohn's disease with complex multiloculated abscess without definite fistula seen on this examination. Partial small bowel obstruction given dilated proximal bowel US DUP ABD PEL RETRO SCROT LIMITED Result Date: 05/01/2024 1. Right ovarian 5.5 cm simple cystic structure most compatible with dominant follicle. 2. Otherwise, unremarkable pelvic ultrasound. RECOMMENDATIONS: Pathology: Right ovarian probable benign cyst measuring 5.4 cm.Recommend follow-up pelvic ultrasound in 3-6 months. US NON OB TRANSVAGINAL Result Date: 05/01/2024 1. Right ovarian 5.5 cm simple cystic structure most compatible with dominant follicle. 2. Otherwise, unremarkable pelvic ultrasound. RECOMMENDATIONS: Pathology: Right ovarian probable benign cyst measuring 5.4 cm.Recommend follow-up pelvic ultrasound in 3-[address] ABDOMEN PELVIS W IV CONTRAST Additional Contrast? None Result Date: 05/01/2024 Findings compatible with active Crohn's disease with complex fluid collection associated with inflamed small bowel in the lower abdomen and pelvis and possible abscess, as described. Possible fistula versus focal area of narrowing in the sigmoid colon. No evidence for bowel obstruction. These findings could be further delineated with follow-up imaging utilizing oral contrast. Prominent cystic structure in the right pelvis may represent an adnexal cyst versus loculated fluid collection, for which attention to on follow-up imaging is recommended. Physical Examination: General appearance: alert, cooperative and no distress Mental Status: oriented to person, place and time and normal affect Lungs: clear to auscultation bilaterally, normal effort Heart: regular rate and rhythm, no murmur Abdomen: soft, hypoactive bowel sounds, tenderness in all regions of abdomen. No guarding Extremities: no edema, redness, tenderness in the calves Skin: no gross lesions, rashes, induration Assessment: Hospital Problems Last Modified POA * (Principal) Intra-abdominal abscess (HCC) 05/01/2024 Yes Crohn's disease with complication (HCC) 05/01/2024 Yes Depression, unspecified 05/01/2024 Yes Generalized anxiety disorder with panic attacks 05/01/2024 Yes Plan: Crohn's flareup with intra-abdominal abscesses. Appreciate GI, colorectal surgery, IR recommendations. Not amenable to drainage at this time due to concern for fistula creation. Continue n.p.o., Protonix IV, continue Zosyn Will give 1 to his Valium see augmenting pain will help Replace electrolytes Continue to monitor. Discussed with family at bedside. Tanya Mercado MD 05/02/2024 12:23 PM Colorectal Surgery: Daily Progress Note PATIENT NAME: Francine Hobson TODAY'S DATE: 05/02/2024, 6:14 AM SUBJECTIVE: Pt seen and examined at bedside. Afebrile. Tachycardic, but otherwise hemodynamically stable. Reports mild improvement in symptoms. Reports abdominal pain, dysuria, abdominal distension. OBJECTIVE: VITALS: BP 119/65 Pulse (!) 107 Temp 99.9 F (37.7 C) (Oral) Resp 16 Ht 1.689 m (5' 6.5 ) Wt 55.4 kg (122 lb 2.2 oz) LMP 04/28/2024 SpO2 94% BMI 19.42 kg/m INTAKE/OUTPUT: Intake/Output Summary (Last 24 hours) at 05/02/2024 0614 Last data filed at 05/02/2024 0519 Gross per 24 hour Intake 1669.22 ml Output -- Net 1669.22 ml PHYSICAL EXAM: CONSTITUTIONAL: awake, alert, mild distress and normal weight HEENT: Normocephalic/atraumatic, without obvious abnormality. NECK: Supple, symmetrical, trachea midline CARDIOVASCULAR: Regular rate and rhythm LUNGS: equal chest rise and fall, no increased WOB, no audible stridor or wheeze ABDOMEN: Distended, severely tender in pelvic region bilaterally MUSCULOSKELETAL: Muscle strength intact in all extremities bilaterally. NEUROLOGIC: Gross motor intact without focal weakness. SKIN: No cyanosis, rashes, or edema noted. Orientation: oriented to person, place, and time Data: CBC with Differential: Lab Results Component Value Date/Time WBC 22.8 05/02/2024 02:38 AM RBC 3.73 05/02/2024 02:38 AM HGB 10.4 05/02/2024 02:38 AM HCT 32.6 05/02/2024 02:38 AM PLT 322 05/02/2024 02:38 AM MCV 87.4 05/02/2024 02:38 AM MCH 27.9 05/02/2024 02:38 AM MCHC 31.9 05/02/2024 02:38 AM RDW 14.3 05/02/2024 02:38 AM LYMPHOPCT 7 05/02/2024 02:38 AM MONOPCT 3 05/02/2024 02:38 AM EOSPCT 0 05/02/2024 02:38 AM BASOPCT 0 05/02/2024 02:38 AM MONOSABS 0.68 05/02/2024 02:38 AM LYMPHSABS 1.60 05/02/2024 02:38 AM EOSABS 0.00 05/02/2024 02:38 AM BASOSABS 0.00 05/02/2024 02:38 AM BMP: Lab Results Component Value Date/Time NA 133 05/02/2024 02:38 AM K 3.4 05/02/2024 02:38 AM CL 99 05/02/2024 02:38 AM CO2 23 05/02/2024 02:38 AM BUN 3 05/02/2024 02:38 AM CREATININE 0.5 05/02/2024 02:38 AM CALCIUM 8.2 05/02/2024 02:38 AM LABGLOM >90 05/02/2024 02:38 AM LABGLOM >60 12/12/2022 03:33 AM GLUCOSE 82 05/02/2024 02:38 AM Radiology Review: US DUP ABD PEL RETRO SCROT LIMITED Result Date: 05/01/2024 1. Right ovarian 5.5 cm simple cystic structure most compatible with dominant follicle. 2. Otherwise, unremarkable pelvic ultrasound. RECOMMENDATIONS: Pathology: Right ovarian probable benign cyst measuring 5.4 cm.Recommend follow-up pelvic ultrasound in 3-6 months. US NON OB TRANSVAGINAL Result Date: 05/01/2024 1. Right ovarian 5.5 cm simple cystic structure most compatible with dominant follicle. 2. Otherwise, unremarkable pelvic ultrasound. RECOMMENDATIONS: Pathology: Right ovarian probable benign cyst measuring 5.4 cm.Recommend follow-up pelvic ultrasound in 3-[address] ABDOMEN PELVIS W IV CONTRAST Additional Contrast? None Result Date: 05/01/2024 Findings compatible with active Crohn's disease with complex fluid collection associated with inflamed small bowel in the lower abdomen and pelvis and possible abscess, as described. Possible fistula versus focal area of narrowing in the sigmoid colon. No evidence for bowel obstruction. These findings could be further delineated with follow-up imaging utilizing oral contrast. Prominent cystic structure in the right pelvis may represent an adnexal cyst versus loculated fluid collection, for which attention to on follow-up imaging is recommended. ASSESSMENT: Active Hospital Problems Diagnosis Date Noted Intra-abdominal abscess (HCC) [K65.1] 05/01/2024 Crohn's disease with complication (HCC) [K50.919] 12/12/2022 Generalized anxiety disorder with panic attacks [F41.1, F41.0] 11/24/2022 Depression, unspecified [F32.A] 11/24/2022 38-year-old female with Crohn's flare, pelvic abscess and concern for fistulous connection to sigmoid versus small bowel Plan: -Patient seen and evaluated. History, physical exam, laboratory, and radiographic findings reviewed and discussed with attending. -IR evaluation for drainage of pelvic abscesses. -CT w/ oral and rectal contrast to evaluate for possible fistula. -Continue IV antibiotics -Monitor electrolytes. Recommend K >4, Mag >2 -Appreciate GI recommendations. -Pain and nausea control as needed -Monitor vitals per unit standard -Encourage I-S, deep breathing, and cough -Strict I/O's -Diet: NPO -Remainder of plan and disposition per primary team. I Dr. Katz saw and examined the patient. I have edited the above and agree with the above. Hemant Katz Colorectal Surgery [facility] Pharmacokinetic Monitoring Service - Vancomycin Francine Hobson is a 38 y.o. female starting on vancomycin therapy for intra-abdominal infection. Pharmacy consulted by Dr Andres for monitoring and adjustment. Target Concentration: Goal AUC/HARPER 400-600 mg*hr/L Additional Antimicrobials: zosyn Pertinent Laboratory Values: Wt Readings from Last 1 Encounters: 05/01/24 53 kg (116 lb 13.5 oz) Temp Readings from Last 1 Encounters: 05/01/24 98.7 F (37.1 C) (Oral) Estimated Creatinine Clearance: 93 mL/min (based on SCr of 0.7 mg/dL). Recent Labs 05/01/24 1442 CREATININE 0.7 BUN 3* WBC 25.1* Procalcitonin: na Pertinent Cultures: Culture Date Source Results na na na MRSA Nasal Swab: N/A. Non-respiratory infection. Plan: Dosing recommendations based on Bayesian software Start vancomycin 1000 mg once, followed by 750 mg IVPB q8h Anticipated AUC of 480 and trough concentration of 14 at steady state Renal labs as indicated Vancomycin concentration not ordered yet Pharmacy will continue to monitor patient and adjust therapy as indicated Thank you for the consult, Jodee Almeida RPH 05/01/2024 3:43 PM documented in this encounter [facility] 05-04-2024 Note PROCEDURE: CT GUIDEDPELVIC FLUID NEEDLE PLACEMENT/ASPIRATION MODERATE CONSCIOUS SEDATION 05/03/2024 HISTORY: ORDERING SYSTEM PROVIDED HISTORY: Please perform CT guided IR aspiration of abdominal abscess TECHNOLOGIST PROVIDED HISTORY: Please perform CT guided IR aspiration of abdominal abscess Is the patient ?->No Reason for Exam: Pelvic abscess aspirate Multilobulated pelvic fluid collection, Crohn's disease SEDATION: Moderate sedation was ordered and supervised by the attending with physician [id number] monitoring. Medications were provided and recorded by Radiology nurses. DOSE: DOSE/DLP: 351.91 mGy-cm Dose modulation, iterative reconstruction, and/or weight based adjustment of the mA/kV was utilized to reduce the radiation dose to as low as reasonably achievable. TECHNIQUE/PROCEDURE DETAILS: Informed consent was obtained after a detailed explanation of the procedure including risks. Rogerson protocol was followed. Sterile gown, masks, hats, and gloves utilized for maximal sterile barrier. The patient was placed in the prone position on the CT couch. A legal services professional scan was performed of the pelvis. The previously identified pelvic fluid was re-identified, and contrast could still be seen within the rectum/sigmoid colon. Moderate conscious sedation was initiated. A site was selected for drainage in the left perirectal region using a transgluteal approach. The skin was prepped and draped in sterile manner, and 1% lidocaine was utilized for local anesthetic. A 5 Scottish 9 Yueh needle sheath was advanced under intermittent CT guidance into the fluid collection. Aspiration through this needle yielded 18 mL cloudy yellow fluid. This aspiration appear to collapse the locule of fluid in which the needle was placed, but at least one more loculation could still be seen within the field of view. The needle was removed. Blood loss was minimal. COMPLICATIONS: None immediately apparent. [facility] 05-04-2024 Note PROCEDURE: CT GUIDEDPELVIC FLUID NEEDLE PLACEMENT/ASPIRATION MODERATE CONSCIOUS SEDATION 05/03/2024 HISTORY: ORDERING SYSTEM PROVIDED HISTORY: Please perform CT guided IR aspiration of abdominal abscess TECHNOLOGIST PROVIDED HISTORY: Please perform CT guided IR aspiration of abdominal abscess Is the patient ?->No Reason for Exam: Pelvic abscess aspirate Multilobulated pelvic fluid collection, Crohn's disease SEDATION: Moderate sedation was ordered and supervised by the attending with physician [id number] monitoring. Medications were provided and recorded by Radiology nurses. DOSE: DOSE/DLP: 351.91 mGy-cm Dose modulation, iterative reconstruction, and/or weight based adjustment of the mA/kV was utilized to reduce the radiation dose to as low as reasonably achievable. TECHNIQUE/PROCEDURE DETAILS: Informed consent was obtained after a detailed explanation of the procedure including risks. Rogerson protocol was followed. Sterile gown, masks, hats, and gloves utilized for maximal sterile barrier. The patient was placed in the prone position on the CT couch. A legal services professional scan was performed of the pelvis. The previously identified pelvic fluid was re-identified, and contrast could still be seen within the rectum/sigmoid colon. Moderate conscious sedation was initiated. A site was selected for drainage in the left perirectal region using a transgluteal approach. The skin was prepped and draped in sterile manner, and 1% lidocaine was utilized for local anesthetic. A 5 Scottish 9 Yueh needle sheath was advanced under intermittent CT guidance into the fluid collection. Aspiration through this needle yielded 18 mL cloudy yellow fluid. This aspiration appear to collapse the locule of fluid in which the needle was placed, but at least one more loculation could still be seen within the field of view. The needle was removed. Blood loss was minimal. COMPLICATIONS: None immediately apparent. IMPRESSION: Technically successful CT-guided pelvic fluid collection aspiration using a left transgluteal approach. Interpreted by: Jose Manuel Torre MD Signed by: Jose Manuel Torre MD 05/04/24 Final result [facility] 04-22-2024 History of Present illness Narrative Subjective: Patient ID: Francine Hobson is a 38 y.o. female. Chief Complaint Patient presents with Cough 38-year-old female patient with a past medical history of Crohn's presents to urgent care with complaints of a persistent cough. Symptoms started 1 week ago. Office severe and now has chest pain and back pain from the coughing. Reports low-grade fever of 100. Has vomited after coughing. No diarrhea. No bloody vomit. Cough This is a new problem. The current episode started in the past 7 days. The problem has been gradually worsening. The problem occurs constantly. The cough is Non-productive. Associated symptoms include chest pain (From coughing), a fever (Low-grade), myalgias and shortness of breath. Pertinent negatives include no headaches, rash, sore throat or wheezing. The following portions of the patient's history were reviewed and updated as appropriate: allergies, current medications, past family history, past medical history, past social history, past surgical history and problem list. Review of Systems Constitutional: Positive for fever (Low-grade). HENT: Negative for sore throat. Respiratory: Positive for cough, chest tightness and shortness of breath. Negative for choking and wheezing. Cardiovascular: Positive for chest pain (From coughing). Musculoskeletal: Positive for myalgias. Skin: Negative for rash. Neurological: Negative for headaches. All other systems reviewed and are negative. Past Medical History: Diagnosis Date Crohn's disease ([facility]) History reviewed. No pertinent surgical history. Social History Tobacco Use Smoking status: Some Days Smokeless tobacco: Never Substance Use Topics Alcohol use: Yes Drug use: Yes Types: Marijuana History reviewed. No pertinent family history. Allergies Allergen Reactions Nsaids (Non-Steroidal Anti-Inflammatory Drug) crohns Current Outpatient Medications on File Prior to Visit Medication Sig Dispense Refill citalopram (CeleXA) 20 mg tablet Take 1 tablet (20 mg total) by mouth. dicyclomine (BENTYL) 10 mg capsule Take 2 capsules (20 mg total) by mouth. ondansetron (ZOFRAN) 4 mg tablet Take 1 tablet (4 mg total) by mouth every 8 (eight) hours as needed for nausea or vomiting. promethazine (PHENERGAN) 25 mg tablet Take 1 tablet (25 mg total) by mouth every 6 (six) hours as needed for nausea or vomiting. RINVOQ 30 mg ER tablet No current facility-administered medications on file prior to visit. Objective: Vitals: 04/22/24 1617 BP: 125/76 Pulse: 103 Resp: 16 Temp: 37.1 C (98.8 F) TempSrc: Oral SpO2: 98% Weight: 54.4 kg (120 lb) Height: 168.9 cm (5' 6.5 ) No LMP recorded. The patient was not asked if she was . Body mass index is 19.08 kg/m . Facility age limit for growth %vishnu is 20 years. Physical Exam Vitals and nursing note reviewed. Constitutional: General: She is not in acute distress. Appearance: She is well-developed. She is not ill-appearing, toxic-appearing or diaphoretic. Cardiovascular: Rate and Rhythm: Normal rate. Pulmonary: Effort: No respiratory distress. Breath sounds: No stridor. No wheezing, rhonchi or rales. Comments: Frequent cough Chest: Chest wall: No tenderness. Neurological: Mental Status: She is alert and oriented to person, place, and time. Psychiatric: Attention and Perception: Attention normal. Mood and Affect: Mood normal. Speech: Speech normal. Behavior: Behavior normal. Behavior is cooperative. Assessment/Plan: 38-year-old female patient presents to urgent care with complaints of frequent cough, back pain, hip pain. Patient reports inflammation in these regions along with a worsening cough. Also developed a fever. She has a history of Crohn's disease. Currently on prednisone but not taking any immune suppressant medications. She is ill-appearing in the clinic today with normal vital signs. Physical exam is remarkable for frequent cough but is otherwise normal. Chest x-ray was obtained which were negative for acute cardiopulmonary pathology. High suspicion for upper respiratory tract etiology. Given her history of Crohn's and long-term prednisone use will start on Augmentin to cover any bacterial cause. If she can not tolerate p.o. fluids, her symptoms worsen, or her pain worsens she should go to the ER immediately for further evaluation and treatment Labs for this visit: No visits with results within 1 Day(s) from this visit. Latest known visit with results is: No results found for any previous visit. Francine was seen today for cough. Diagnoses and all orders for this visit: Acute cough - X-ray chest 2 views; Future Upper respiratory tract infection, unspecified type - amoxicillin-pot clavulanate (AUGMENTIN) 875-125 mg per tablet; Take 1 tablet by mouth in the morning and 1 tablet before bedtime. Do all this for 7 days. Orders Placed or Reconciled This Encounter Medications dicyclomine (BENTYL) 10 mg capsule Sig: Take 2 capsules (20 mg total) by mouth. amoxicillin-pot clavulanate (AUGMENTIN) 875-125 mg per tablet Sig: Take 1 tablet by mouth in the morning and 1 tablet before bedtime. Do all this for 7 days. Dispense: 14 tablet Refill: 0 Patient Instructions Narrative & Impression PA and lateral chest, 2 views, dated 08/23/2023 at 4:44 PM INDICATION: Severe cough, fever. FINDINGS: No comparisons available. No airspace disease or edema. No effusions. The heart and mediastinal structures are within normal limits. IMPRESSION: No acute cardiopulmonary abnormality seen. This note is dictated with the use of M*Modal.Please note that this dictation was completed with computer voice recognition software. Quite often unanticipated grammatical, syntax, homophones, and other interpretive errors are inadvertently transcribed by the computer software. Please disregard these errors. Please excuse any errors that have escaped final proofreading. I personally discussed test results with patient/parent. Education handout and discharge papers given. Paperwork explained. Denies questions or concerns. Discussed that follow up care is usually required after a visit to the Urgent care. It is your responsibility to contact your primary care provider for follow up. If symptoms are not improving, worsening, or concerning symptoms of illness develop, follow up with your primary care provider or go to the nearest Emergency Department for further care immediately. DAGOBERTO Hill 04/22/24 1705 documented in this encounter [facility] 04-22-2024 Instructions DAGOBERTO Hill - 04/22/2024 4:05 PM EDT Narrative & Impression PA and lateral chest, 2 views, dated 08/23/2023 at 4:44 PM INDICATION: Severe cough, fever. FINDINGS: No comparisons available. No airspace disease or edema. No effusions. The heart and mediastinal structures are within normal limits. IMPRESSION: No acute cardiopulmonary abnormality seen. The following attachments cannot be sent through Care Everywhere.Bacterial Upper Respiratory Infection, Adult (Slovenian)documented in this encounter [facility] 11-22-2023 Hospital Discharge instructions Porfirio Cervantes MD - 11/22/2023 7:35 AM EDT You have been evaluated in the emergency department for abdominal pain, this is likely a flareup of your Crohn's. CT of your abdomen did show small bowel inflammation with some worsening of the partial bowel obstruction seen on prior imaging obtained in December 2022. Given started on a prednisone taper, please take as prescribed. Schedule a follow-up appointment with your pump assembler for further evaluation and treatment of your symptoms. Return to the emergency department immediately if you begin experiencing persistent nausea, vomiting, severe chest pain or shortness of breath, blood in stool. Surjit Fernando RN - 11/22/2023 7:51 AM EDT Continuity of Care Form Patient Name: Francine Hobson : 1985 Admit date: 11/22/2023 Discharge date: Code Status Order: No Order Advance Directives: Admitting Physician: No admitting provider for patient encounter. PCP: No primary care provider on file. Discharging Nurse: Discharging Hospital Unit/Room#: 10/06 Discharging Unit Phone Number: Emergency Contact: Extended Emergency Contact Information Primary Emergency Contact: Arthur Victor Relation: Boyfriend Past Surgical History: Past Surgical History: Procedure Laterality Date BOWEL RESECTION SECTION TONSILLECTOMY AND ADENOIDECTOMY TUMOR REMOVAL Left left shoulder, benign WISDOM TOOTH EXTRACTION Immunization History: There is no immunization history on file for this patient. Active Problems: Patient Active Problem List Diagnosis Code Crohn's disease with complication ([facility]) K50.919 Isolation/Infection: Isolation No Isolation Patient Infection Status None to display Nurse Assessment: Last Vital Signs: BP (!) 92/59 Pulse 76 Temp 97.5 F (36.4 C) (Oral) Resp 19 Ht 1.676 m (5' 6 ) Wt 55.3 kg (122 lb) SpO2 100% BMI 19.69 kg/m Last documented pain score (0-10 scale): Pain Level: 10 Last Weight: Wt Readings from Last 1 Encounters: 11/22/23 55.3 kg (122 lb) Mental Status: {IP PT MENTAL STATUS:} IV Access: { WEN IV ACCESS:318098729} Nursing Mobility/ADLs: Walking {CHP DME ADLs:114625305} Transfer {CHP DME ADLs:315236873} Bathing {CHP DME ADLs:361023416} Dressing {CHP DME ADLs:610949635} Toileting {CHP DME ADLs:857762171} Feeding {CHP DME ADLs:371784659} Furniture Dipper {CHP DME ADLs:310276666} Med Delivery { WEN MED Delivery:389300946} Wound Care Documentation and Therapy: Elimination: Continence: Bowel: {YES / NO:} Bladder: {YES / NO:} Urinary Catheter: {Urinary Catheter:200213890} Colostomy/Ileostomy/Ileal Conduit: {YES / NO:} Date of Last BM: No intake or output data in the 24 hours ending 11/22/23 0751 No intake/output data recorded. Safety Concerns: { WEN Safety Concerns:629181942} Impairments/Disabilities: { WEN Impairments/Disabilities:8402427 73} Nutrition Therapy: Current Nutrition Therapy: { WEN Diet List:480422425} Routes of Feeding: {CHP DME Other Feedings:990912916} Liquids: {Insurance Case Manager liquid thickness:54199} Daily Fluid Restriction: {CHP DME Yes amt example:149005778} Last Modified Barium Swallow with Video (Video Swallowing Test): {Done Not Done Date:} Treatments at the Time of Hospital Discharge: Respiratory Treatments: Oxygen Therapy: {Therapy; copd oxygen:33161} Ventilator: {[facility] Vent List:059990886} Rehab Therapies: {THERAPEUTIC INTERVENTION:7271317119} Weight Bearing Status/Restrictions: {[facility] Weight Bearin} Other Medical Equipment (for information only, NOT a DME order): {EQUIPMENT:448105354} Other Treatments: Patient's personal belongings (please select all that are sent with patient): {[facility] DME Belongings:222561437} RN SIGNATURE: {Esignature:127725216} CASE MANAGEMENT/SOCIAL WORK SECTION Inpatient Status Date: Readmission Risk Assessment Score: Readmission Risk Risk of Unplanned Readmission: 0 Discharging to Facility/ Agency Name: Address: Phone: Fax: Dialysis Facility (if applicable) Name: Address: Dialysis Schedule: Phone: Fax: Mine Foreman/Professor Of Historical Theology signature: {Esignature:629619452} PHYSICIAN SECTION Prognosis: {Prognosis:5913932472} Condition at Discharge: { Patient Condition:012136852} Rehab Potential (if transferring to Rehab): {Prognosis:1742836429} Recommended Labs or Other Treatments After Discharge: Physician Certification: I certify the above information and transfer of Francine Hobson is necessary for the continuing treatment of the diagnosis listed and that she requires {Admit to Appropriate Level of Care:86646} for {GREATER/LESS:322890041} 30 days. Update Admission H&P: {CHP DME Changes in HandP:833598806} PHYSICIAN SIGNATURE: {Esignature:397186605} documented in this encounter [facility] 08-18-2023 History of Present illness Narrative Subjective: Patient ID: Francine Hobson is a 37 y.o. female. Chief Complaint Patient presents with Abscess HPI This is a 37-year-old female that presents to the urgent care setting for evaluation of a red raised area to the left groin. The patient states that feels couple days she has had this red raised area to her left groin. She states that it is hard but it is become more painful. She states that she 1st noticed it about a week and a half ago but the pain started a couple of days ago. She had 1 on her right butt cheek that was lanced and drained in the past. The following portions of the patient's history were reviewed and updated as appropriate: allergies, current medications, past family history, past medical history, past social history, past surgical history and problem list. Review of Systems Constitutional: Negative for chills and fever. HENT: Negative for sinus pressure and sneezing. Respiratory: Negative for cough and shortness of breath. Cardiovascular: Negative for chest pain and palpitations. Gastrointestinal: Negative for abdominal pain, nausea and vomiting. Genitourinary: Negative for dysuria. Musculoskeletal: Negative for gait problem. Skin: Positive for wound. Past Medical History: Diagnosis Date Crohn's disease ([facility]) History reviewed. No pertinent surgical history. Social History Tobacco Use Smoking status: Some Days Smokeless tobacco: Never Substance Use Topics Alcohol use: Yes Drug use: Yes Types: Marijuana History reviewed. No pertinent family history. Allergies Allergen Reactions Nsaids (Non-Steroidal Anti-Inflammatory Drug) crohns Current Outpatient Medications on File Prior to Visit Medication Sig Dispense Refill citalopram (CeleXA) 20 mg tablet Take 1 tablet (20 mg total) by mouth. RINVOQ 30 mg ER tablet TAKE 1 TABLET BY MOUTH EVERY DAY No current facility-administered medications on file prior to visit. Objective: Vitals: 08/18/23 1702 BP: 111/59 Pulse: 81 Resp: 16 Temp: 36.8 C (98.2 F) TempSrc: Temporal SpO2: 100% Weight: 54.4 kg (120 lb) Height: 168.9 cm (5' 6.5 ) No LMP recorded. The patient was not asked if she was . Body mass index is 19.08 kg/m . Facility age limit for growth %vishnu is 20 years. Physical Exam Vitals reviewed. HENT: Head: Normocephalic and atraumatic. Right Ear: Tympanic membrane normal. Left Ear: Tympanic membrane normal. Nose: No congestion. Eyes: Conjunctiva/sclera: Conjunctivae normal. Cardiovascular: Rate and Rhythm: Normal rate and regular rhythm. Pulses: Normal pulses. Pulmonary: Effort: Pulmonary effort is normal. No respiratory distress. Abdominal: Tenderness: There is no abdominal tenderness. Musculoskeletal: General: Normal range of motion. Cervical back: Normal range of motion. Skin: General: Skin is warm and dry. Comments: Patient has a well-circumscribed moveable cystic-like lesion to the left groin with some mild erythema. There is no area of induration to suggest abscess Neurological: General: No focal deficit present. Mental Status: She is alert. Assessment/Plan: Patient appears to have an infected cyst. They skin is warm but it is not indurated to suggest a drainable abscess. The area that is swollen is hard. The patient will be placed on doxycycline for antibiotic coverage. She was told to do warm compresses. Follow-up with her doctor for if symptoms persist. Return if it becomes any worse, swollen or any other concerns Labs for this visit: No visits with results within 1 Day(s) from this visit. Latest known visit with results is: No results found for any previous visit. Francine was seen today for abscess. Diagnoses and all orders for this visit: Infected cyst of skin - doxycycline (VIBRAMYCIN) 100 mg capsule; Take 1 capsule (100 mg total) by mouth in the morning and 1 capsule (100 mg total) before bedtime. Do all this for 5 days. Orders Placed or Reconciled This Encounter Medications citalopram (CeleXA) 20 mg tablet Sig: Take 1 tablet (20 mg total) by mouth. RINVOQ 30 mg ER tablet Sig: TAKE 1 TABLET BY MOUTH EVERY DAY doxycycline (VIBRAMYCIN) 100 mg capsule Sig: Take 1 capsule (100 mg total) by mouth in the morning and 1 capsule (100 mg total) before bedtime. Do all this for 5 days. Dispense: 10 capsule Refill: 0 Patient Instructions Please consider immediate medical re-evaluation from a healthcare provider for any worsening, concerning, or new symptoms. Please contact your primary care physician's office within the next 1-2 business days to share the information that has been discussed with you during today's visit. If you do not have a primary care physician, please consider returning to urgent care or the nearest emergency dept. for evaluation of non-improving symptoms until you are established with a primary care practice. If you have been prescribed any medications during your visit today, those medications have been discussed with you including: Dose, frequency, duration, and potential side effects. Every individual responds differently to each medication, please use caution until you understand how each medication affects you individually. If you have been recommended [id number]-spdoxbz medications please use those medications as indicated on their packaging detail. This note is dictated with the use of M*Modal.Please note that this dictation was completed with computer voice recognition software. Quite often unanticipated grammatical, syntax, homophones, and other interpretive errors are inadvertently transcribed by the computer software. Please disregard these errors. Please excuse any errors that have escaped final proofreading. I personally discussed test results with patient/parent. Education handout and discharge papers given. Paperwork explained. Denies questions or concerns. Discussed that follow up care is usually required after a visit to the Urgent care. It is your responsibility to contact your primary care provider for follow up. If symptoms are not improving, worsening, or concerning symptoms of illness develop, follow up with your primary care provider or go to the nearest Emergency Department for further care immediately. DAGOBERTO Mackenzie 08/18/23 1837 documented in this encounter [facility] 08-18-2023 Instructions DAGOBERTO Mackenize - 08/18/2023 4:35 PM EST Please consider immediate medical re-evaluation from a healthcare provider for any worsening, concerning, or new symptoms. Please contact your primary care physician's office within the next 1-2 business days to share the information that has been discussed with you during today's visit. If you do not have a primary care physician, please consider returning to urgent care or the nearest emergency dept. for evaluation of non-improving symptoms until you are established with a primary care practice. If you have been prescribed any medications during your visit today, those medications have been discussed with you including: Dose, frequency, duration, and potential side effects. Every individual responds differently to each medication, please use caution until you understand how each medication affects you individually. If you have been recommended jzdk-jap-zzabeuv medications please use those medications as indicated on their packaging detail. The following attachments cannot be sent through Care Everywhere.Epidermal Cyst Discharge Instructions (Slovenian)documented in this encounter [facility] 05-26-2023 Evaluation note Encounter Date Diagnosis Assessment Notes May, Folliculitis (ICD-10 - L73.9) Discussed that clinical histroy and exam seem consistent with folliculitis. Discussed possiblity of HSV unfortunately however there are no open lesions to be cultured. We will treat with oral and topical antibiotic. Will obtain full STI screen at patient request. 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 To follow up no improvement or worsening symptoms, or if having furher outbreaks follow up AVINASH for culture. May, History of exposure to blood or body fluid (ICD-10 - Z77.21) May, Pascale infection (ICD-10 - B37.9) antibiotic induced yeast infection [facility] Other 11-09-2023 Evaluation note* Encounter Date Diagnosis Assessment Notes Treatment Notes Treatment Clinical Notes May, Crohn disease (ICD-10 - K50.90) PATIENT HAS RECENTLY STARTED RINVOQ. SHE HAS FINISHED HER 8 WEEK STARTER DOSE AND IS NOW ON THE MAINTANCE DOSE. [facility] Other 11-01-2023 Evaluation note* Encounter Date Diagnosis Assessment Notes Treatment Notes Treatment Clinical Notes May, UTI (urinary tract infection) (ICD-10 - N39.0) UA consistent with UTI, will treat with oral antibiotic. Will send culture and adjust abx as necessary. To follow up if no improvement or worsening symptoms. [facility] Other 10-06-2023 Evaluation note* Encounter Date Diagnosis Assessment Notes Treatment Notes Treatment Clinical Notes Apr, Right ankle sprain (ICD-10 - S93.401A) 1 week out from inversion injury, overall improving pattern. Encouraged continued ice, rest, elevation, can use compression with neil bandage. Can trial voltaren gel OTC as she does not tolerate NSAIDs due to Crohn's disease. If not improving in 1-2 weeks recommend f/u with ortho Apr, Major depression (ICD-10 - F32.9) Uncontrolled on current dose of citalopram, will increase to 40mg daily at this point. Apr, Panic attacks (ICD-1 0 - F41.0) Can trial propranolol PRN panic attacks Apr, Gastroesophageal reflux disease with esophagitis without hemorrhage (ICD-10 - K21.00) [facility] Other 09-05-2023 Evaluation note* Encounter Date Diagnosis Assessment Notes Treatment Notes Treatment Clinical Notes Mar, Crohn disease (ICD-10 - K50.90) [facility] Other 08-23-2023 Evaluation note* Encounter Date Diagnosis Assessment Notes Treatment Notes Treatment Clinical Notes Feb, Postoperative visit (ICD-10 - Z48.89) Francine is here now 1 week s/p left shoulder lipoma excision. She is doing well. Physical exam and lab report has been reviewed with her. Benign lipoma. She can advance activities as tolerated for now. Home exercise program given. Follow-up as needed. Feb, Other See orders for this visit as documented in the electronic medical record. [facility] Other 08-22-2023 Evaluation note* Encounter Date Diagnosis Assessment Notes Treatment Notes Treatment Clinical Notes Feb, Sore throat (ICD-10 - J02.9) Feb, Gastroesophageal ref lux disease with esophagitis without hemorrhage (ICD-10 - K21.00) She presents today with 5 day hx of sore throat and some substernal pain with eating and drinking. She is on chronic steroids. I do think this likely related to GERD. Will start omeprazole and carafate, instructed her to call in a few days if not improving, she voiced understanding. i did also consider esophageal candidia. If not improving could consider diflucan if she cannot get in with GI sooner. She agrees with plan today. [facility] Other 07-03-2023 Evaluation note* Encounter Date Diagnosis Assessment Notes Treatment Notes Treatment Clinical Notes Jan, Major depression (ICD-10 - F32.9) [facility] Encounter Date Diagnosis Assessment Notes Treatment Notes Treatment Clinical Notes Dec, Crohn disease (ICD-10 - K50.90) Prednisone 40 mg daily for 4 weeks, then taper down by [address] enterography in 6 months-in recall Will arrange for a colonoscopy Start PPW for Humira Rto 8 weeks Dec, Abdominal pain (ICD-10 - R10.9) Dec, Bloating (ICD-10 - R14.0) Dec, Weight loss (ICD-10 - R63.4) Dec, Diarrhea (ICD-10 - R19.7) [facility] Other 06-21-2023 Evaluation note* Encounter Date Diagnosis Assessment Notes Treatment Notes Treatment Clinical Notes Dec, Crohn disease (ICD-10 - K50.90) [facility] Other 06-14-2023 Evaluation note* Encounter Date Diagnosis Assessment Notes Treatment Notes Treatment Clinical Notes Dec, Acute pain of left shoulder (ICD-10 - M25.512) Dec, Mass of joint of left shoulder (ICD-10 - M25.812) Francine presents with left shoulder mass. At this juncture we have discussed the findings and diagnosis as well as personally reviewed appropriate imaging and performed interpretation of related testing and examination with the patient in office today. Prior medical notes from Dr. Brown'daniela and history have been reviewed. At this time I would recommend MRI of the left shoulder to evaluate this lesion. We will plan for follow-up after MRI is complete for review. The patient has been involved in our cooperative treatment plan and agrees to move forward with treatment at this time. Radiographs reviewed with patient today. Discussed due to the mass growing in size and becoming more painful I would recommed an MRI to assess the mass that could require surgical treatment. Patient given MRI information sheet. Dec, Injury of left hand, initial encounter (ICD-10 - S69.92XA) Francine also has a left middle finger injury. She had x-rays done at [place] which are unavailable for review but she said was negative for fracture. She is in a splint. We discussed gentle range of motion's. Recheck at follow-up Advised patient to come out of splint to work on range of motion exercises. We call revaluate at her follow up if she continues to have pain Dec, Other See orders for this visit as documented in the electronic medical record. [facility] Other 06-05-2023 Evaluation note* Encounter Date Diagnosis Assessment Notes Treatment Notes Treatment Clinical Notes Dec, Crohn disease (ICD-10 - K50.90) Currently uncontrolled, on predisone taper. She is currently on 60mg daily for another week, then will start titrating down. She is provided with 20 mg tablets for titration, she has 10mg and 5mg at home. She is referred to local GI. Can continue promethazine PRN. To return to ED with any severe pain or worsening symptoms or inability to take PO Dec, Shoulder mass (ICD-10 - R22.30) Subcutaneous mass of shoulder, ?cyst, will refer to orthopedic surgery for evaluation Dec, Kidney lesion (ICD-10 - N28.9) Incidental finding on CT abd/pelvis, will obtain u/s for further characterization Dec, Major depression (ICD-10 - F32.9) Recently restarted Celexa 10mg daily, will recheck symptoms at f/u appt in 6 weeks [facility] Other 04-04-2023 NoteOPERATIVE NOTE OPERATION DATE: 10/06/2022 PRIMARY CARE PHYSICIAN: None. SURGEON: Jelly Oliva M.D. PREOPERATIVE DIAGNOSIS: Displaced open nasal fracture. POSTOPERATIVE DIAGNOSIS: Displaced open nasal fracture. PROCEDURE: Closed reduction nasal fracture with stabilization. ANESTHESIA: General endotracheal. COMPLICATIONS: None. FINDINGS: Depressed right nasal bone. INDICATIONS: This 37-year-old woman suffered a displaced nasal fracture one week ago with depression of the right nasal bone. PROCEDURE: Patient identified in the holding area and taken back to the OR, where she was placed in a supine position. After the induction of general endotracheal anesthesia, the face was draped in a sterile fashion and the nose irrigated with normal saline. Afrin soaked pledgets were placed in each side of the nose. After waiting adequate time for decongestion, a Larios elevator was placed in the right nostril, the dorsum elevated and the elevator was then used to reduce the depressed fracture of the right nasal bone. This was evident both visibly and palpably. Afrin soaked pledgets were then replaced in the right side of the nose to hold the bone fragments in place while the nose was prepped with alcohol and Mastisol and a malleable splint was placed over the nasal dorsum. The patient was then awakened and taken to the recovery room in good condition.[facility] [id number] History of Present illness Narrative* Francine Guzman MSW - 11/19/2020 10:[address] [facility] f/u call to pt re: last appointment over 1 month ago. No answer, left vm inquiring if pt wishesto reschedule last cancelled appointment (10/31/20) to please call this P directly by 12/03/20 (2wk from this call) or pts Behavioral Health Case Management Episode of Care will be closed. Informed ptthey can reopen this episode in the future if needed by contacting this P or PCP. documented in this [id number] History of Present illness Narrative* Abdiel Smith MD - 10/30/2020 6:03 PM EDT * Francine Guzman MSW - 10/30/2020 4:06 PM EDT Subsequent Month for Francine Hobson participation in the Behavioral Health Integration Program. Dx: anxiety; depression, unspecified Met face to face with them to discuss their anxiety and depression. Francine Hobson is focused on coping skills and emotional regulation. Psychiatric Sweet Potato Disintegrator reviewed the chart with recommendations. Total minutes spent this month: 58 documented in this encounterOhioHealthEvaluation + Plan note No data available for this section [facility] Evaluation note* Diagnosis Crohn's disease of small intestine without complication (HCC)- Primary [facility] Diagnosis Anxiety- Primary Anxiety state, unspecified Depression, unspecified depression type documented in this encounter [facility] noteNo assessment information availableTrinity Health [facility] Work Phone: Evaluation noteNoRed Blue Voice [employer] Other Evaluation noteNo InformationNonorth [facility] Other Evaluation note* Diagnosis Crohn's disease with complication, unspecified gastrointestinal tract location (HCC)- Primary documented in this encounter [facility] note* Diagnosis Intra-abdominal abscess (HCC)- Primary Peritoneal abscess Generalized abdominal pain Abdominal pain, generalized Crohn's disease of colon with abscess (HCC) Intra-abdominal abscess (HCC) Peritoneal abscess Crohn's disease of colon with rectal bleeding (HCC) Crohn's colitis, other complication (HCC) Generalized anxiety disorder with panic attacks Depression, unspecified Crohn's disease with complication (HCC) Regional enteritis of unspecified site Crohn's colitis, other complication (HCC) Partial small bowel obstruction (HCC) Unspecified intestinal obstruction Generalized abdominal pain Abdominal pain, generalized Crohn's disease of colon with abscess (HCC) Pelvic abscess in female Chronic or unspecified parametritis and pelvic cellulitis Abscess of intestine due to Crohn's disease (HCC) Bandemia Normocytic normochromic anemia Anemia, unspecified Crohn's disease of small and large intestines with complication (HCC) documented in this encounter [employer] note* Diagnosis Crohn's disease of small intestine with complication (HCC)- Primary Regional enteritis of small intestine Crohn's disease of small and large intestines with complication (HCC) documented in this encounter [facility]* Diagnosis Crohn's colitis, unspecified complication (HCC)- Primary Nausea and vomiting, unspecified vomiting type Abdominal pain, epigastric Partial intestinal obstruction, unspecified cause (HCC) Bandemia Abscess of intestine due to Crohn's disease (HCC) Crohn's disease of colon with complication (HCC) Generalized abdominal pain Abdominal pain, generalized Partial small bowel obstruction (HCC) Unspecified intestinal obstruction Nausea and vomiting Nausea with vomiting Abdominal pain, epigastric CRP elevated Elevated C-reactive protein (CRP) [facility] Partial small bowel obstruction (HCC)- Primary Unspecified intestinal obstruction Crohn's disease of both small and large intestine with abscess (HCC) Regional enteritis of small intestine with large intestine On total parenteral nutrition (TPN) Other specified conditions influencing health status Partial small bowel obstruction (HCC) Unspecified intestinal obstruction Crohn's disease of both small and large intestine with abscess (HCC) Regional enteritis of small intestine with large intestine Abdominal fluid collection Other ascites Mood disorder (HCC) Unspecified episodic mood disorder On total parenteral nutrition (TPN) Other specified conditions influencing health status Feeding difficulties Feeding difficulties and mismanagement Therapeutic drug monitoring Encounter for therapeutic drug monitoring Moderate protein-calorie malnutrition (HCC) Malnutrition of moderate degree Nicotine use disorder, F17.2 Tobacco use disorder Small bowel stricture (HCC) Unspecified intestinal obstruction Feeding difficulties- Primary Feeding difficulties and mismanagement [facility] Diagnosis Infected cyst of skin- Primary [facility] Diagnosis Acute cough- Primary Upper respiratory tract infection, unspecified type Acute cough [facility] this [facility] Diagnosis Partial small bowel obstruction (HCC)- Primary Unspecified intestinal obstruction Crohn's disease of both small and large intestine with abscess (HCC) Regional enteritis of small intestine with large intestine On total parenteral nutrition (TPN) Other specified conditions influencing health status Abdominal fluid collection Other ascites Feeding difficulties Feeding difficulties and mismanagement Therapeutic drug monitoring Encounter for therapeutic drug monitoring Crohn's disease of both small and large intestine with abscess (HCC)- Primary Regional enteritis of small intestine with large intestine Crohn's disease of small and large intestines with complication (HCC) Crohn's colitis, with intestinal obstruction (HCC)- Primary Partial small bowel obstruction (HCC) Unspecified intestinal obstruction Crohn's disease of both small and large intestine with abscess (HCC) Regional enteritis of small intestine with large intestine Small bowel stricture (HCC) Unspecified intestinal obstruction Crohn's disease (HCC) Regional enteritis of unspecified site Partial small bowel obstruction (HCC) Unspecified intestinal obstruction Crohn's disease of both small and large intestine with abscess (HCC) Regional enteritis of small intestine with large intestine Mood disorder (HCC) Unspecified episodic mood disorder Small bowel stricture (HCC) Unspecified intestinal obstruction Nicotine use disorder, F17.2 Tobacco use disorder Severe protein-calorie malnutrition (HCC) Other severe protein-calorie malnutrition Post-op pain Other acute postoperative pain Difficult intravenous access Other specified conditions influencing health status On total parenteral nutrition (TPN) Other specified conditions influencing health status [facility] Partial small bowel obstruction (HCC)- Primary Unspecified intestinal obstruction Crohn's disease of both small and large intestine with abscess (HCC) Regional enteritis of small intestine with large intestine On total parenteral nutrition (TPN) Other specified conditions influencing health status Abdominal fluid collection Other ascites Feeding difficulties Feeding difficulties and mismanagement Therapeutic drug monitoring Encounter for therapeutic drug monitoring Crohn's colitis, with intestinal obstruction (HCC)- Primary Partial small bowel obstruction (HCC) Unspecified intestinal obstruction Crohn's disease of both small and large intestine with abscess (HCC) Regional enteritis of small intestine with large intestine Small bowel stricture (HCC) Unspecified intestinal obstruction Crohn's disease (HCC) Regional enteritis of unspecified site Acute deep vein thrombosis (DVT) of brachial vein of right upper extremity (HCC) Acute deep vein thrombosis (DVT) of axillary vein of right upper extremity (HCC) Partial small bowel obstruction (HCC) Unspecified intestinal obstruction Crohn's disease of both small and large intestine with abscess (HCC) Regional enteritis of small intestine with large intestine Mood disorder (HCC) Unspecified episodic mood disorder Small bowel stricture (HCC) Unspecified intestinal obstruction Nicotine use disorder, F17.2 Tobacco use disorder Severe protein-calorie malnutrition (HCC) Other severe protein-calorie malnutrition Post-op pain Other acute postoperative pain Difficult intravenous access Other specified conditions influencing health status On total parenteral nutrition (TPN) Other specified conditions influencing health status Adjustment disorder with anxious mood Adjustment disorder with anxiety Acute postoperative anemia due to expected blood loss Acute deep vein thrombosis (DVT) of brachial vein of right upper extremity (HCC) Acute deep vein thrombosis (DVT) of axillary vein of right upper extremity (HCC) Anticoagulation management encounter Encounter for therapeutic drug monitoring High output ileostomy (HCC) Other symptoms involving digestive system Acute deep vein thrombosis (DVT) of axillary vein of right upper extremity (HCC)- Primary Acute deep vein thrombosis (DVT) of brachial vein of right upper extremity (HCC) [facility] Partial small bowel obstruction (HCC)- Primary Unspecified intestinal obstruction Crohn's disease of both small and large intestine with abscess (HCC) Regional enteritis of small intestine with large intestine On total parenteral nutrition (TPN) Other specified conditions influencing health status Abdominal fluid collection Other ascites Feeding difficulties Feeding difficulties and mismanagement Therapeutic drug monitoring Encounter for therapeutic drug monitoring Crohn's colitis, with intestinal obstruction (HCC)- Primary Partial small bowel obstruction (HCC) Unspecified intestinal obstruction Crohn's disease of both small and large intestine with abscess (HCC) Regional enteritis of small intestine with large intestine Small bowel stricture (HCC) Unspecified intestinal obstruction Crohn's disease (HCC) Regional enteritis of unspecified site Acute deep vein thrombosis (DVT) of brachial vein of right upper extremity (HCC) Acute deep vein thrombosis (DVT) of axillary vein of right upper extremity (HCC) Partial small bowel obstruction (HCC) Unspecified intestinal obstruction Crohn's disease of both small and large intestine with abscess (HCC) Regional enteritis of small intestine with large intestine Mood disorder (HCC) Unspecified episodic mood disorder Small bowel stricture (HCC) Unspecified intestinal obstruction Nicotine use disorder, F17.2 Tobacco use disorder Severe protein-calorie malnutrition (HCC) Other severe protein-calorie malnutrition Post-op pain Other acute postoperative pain Difficult intravenous access Other specified conditions influencing health status On total parenteral nutrition (TPN) Other specified conditions influencing health status Adjustment disorder with anxious mood Adjustment disorder with anxiety Acute postoperative anemia due to expected blood loss Acute deep vein thrombosis (DVT) of brachial vein of right upper extremity (HCC) Acute deep vein thrombosis (DVT) of axillary vein of right upper extremity (HCC) Anticoagulation management encounter Encounter for therapeutic drug monitoring High output ileostomy (HCC) Other symptoms involving digestive system Feeding difficulties- Primary Feeding difficulties and mismanagement 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 [facility] Diagnosis Partial small bowel obstruction (HCC)- Primary Unspecified intestinal obstruction Crohn's disease of both small and large intestine with abscess (HCC) Regional enteritis of small intestine with large intestine On total parenteral nutrition (TPN) Other specified conditions influencing health status Abdominal fluid collection Other ascites Feeding difficulties Feeding difficulties and mismanagement Therapeutic drug monitoring Encounter for therapeutic drug monitoring Crohn's colitis, with intestinal obstruction (HCC)- Primary Partial small bowel obstruction (HCC) Unspecified intestinal obstruction Crohn's disease of both small and large intestine with abscess (HCC) Regional enteritis of small intestine with large intestine Small bowel stricture (HCC) Unspecified intestinal obstruction Crohn's disease (HCC) Regional enteritis of unspecified site Acute deep vein thrombosis (DVT) of brachial vein of right upper extremity (HCC) Acute deep vein thrombosis (DVT) of axillary vein of right upper extremity (HCC) Post-op pain Other acute postoperative pain High output ileostomy (HCC) Other symptoms involving digestive system Partial small bowel obstruction (HCC) Unspecified intestinal obstruction Crohn's disease of both small and large intestine with abscess (HCC) Regional enteritis of small intestine with large intestine Mood disorder (HCC) Unspecified episodic mood disorder Small bowel stricture (HCC) Unspecified intestinal obstruction Nicotine use disorder, F17.2 Tobacco use disorder Severe protein-calorie malnutrition (HCC) Other severe protein-calorie malnutrition Post-op pain Other acute postoperative pain Difficult intravenous access Other specified conditions influencing health status On total parenteral nutrition (TPN) Other specified conditions influencing health status Adjustment disorder with anxious mood Adjustment disorder with anxiety Acute postoperative anemia due to expected blood loss Acute deep vein thrombosis (DVT) of brachial vein of right upper extremity (HCC) Acute deep vein thrombosis (DVT) of axillary vein of right upper extremity (HCC) Anticoagulation management encounter Encounter for therapeutic drug monitoring High output ileostomy (HCC) Other symptoms involving digestive system Occlusion of peripherally inserted central catheter (PICC) line, initial encounter (HCC)- Primary [facility] Diagnosis Partial small bowel obstruction (HCC)- Primary Unspecified intestinal obstruction Crohn's disease of both small and large intestine with abscess (HCC) Regional enteritis of small intestine with large intestine On total parenteral nutrition (TPN) Other specified conditions influencing health status Abdominal fluid collection Other ascites Feeding difficulties Feeding difficulties and mismanagement Therapeutic drug monitoring Encounter for therapeutic drug monitoring Partial small bowel obstruction (HCC) Unspecified intestinal obstruction Crohn's disease of both small and large intestine with abscess (HCC) Regional enteritis of small intestine with large intestine Small bowel stricture (HCC) Unspecified intestinal obstruction Crohn's disease (HCC) Regional enteritis of unspecified site Acute deep vein thrombosis (DVT) of brachial vein of right upper extremity (HCC) Acute deep vein thrombosis (DVT) of axillary vein of right upper extremity (HCC) Post-op pain Other acute postoperative pain High output ileostomy (HCC) Other symptoms involving digestive system Partial small bowel obstruction (HCC) Unspecified intestinal obstruction Crohn's disease of both small and large intestine with abscess (HCC) Regional enteritis of small intestine with large intestine Small bowel stricture (HCC) Unspecified intestinal obstruction Post-op pain Other acute postoperative pain Difficult intravenous access Other specified conditions influencing health status Adjustment disorder with anxious mood Adjustment disorder with anxiety Acute postoperative anemia due to expected blood loss Acute deep vein thrombosis (DVT) of brachial vein of right upper extremity (HCC) Anticoagulation management encounter Encounter for therapeutic drug monitoring Post-operative state- Primary Other postprocedural status High output ileostomy (HCC) Other symptoms involving digestive system Other urinary incontinence Crohn's disease of both small and large intestine with abscess (HCC) Regional enteritis of small intestine with large intestine [facility] Diagnosis Partial small bowel obstruction (HCC)- Primary Unspecified intestinal obstruction Crohn's disease of both small and large intestine with abscess (HCC) Regional enteritis of small intestine with large intestine On total parenteral nutrition (TPN) Other specified conditions influencing health status Abdominal fluid collection Other ascites Feeding difficulties Feeding difficulties and mismanagement Therapeutic drug monitoring Encounter for therapeutic drug monitoring Partial small bowel obstruction (HCC) Unspecified intestinal obstruction Crohn's disease of both small and large intestine with abscess (HCC) Regional enteritis of small intestine with large intestine Small bowel stricture (HCC) Unspecified intestinal obstruction Crohn's disease (HCC) Regional enteritis of unspecified site Acute deep vein thrombosis (DVT) of brachial vein of right upper extremity (HCC) Acute deep vein thrombosis (DVT) of axillary vein of right upper extremity (HCC) Post-op pain Other acute postoperative pain High output ileostomy (HCC) Other symptoms involving digestive system Partial small bowel obstruction (HCC) Unspecified intestinal obstruction Crohn's disease of both small and large intestine with abscess (HCC) Regional enteritis of small intestine with large intestine Small bowel stricture (HCC) Unspecified intestinal obstruction Post-op pain Other acute postoperative pain Difficult intravenous access Other specified conditions influencing health status Adjustment disorder with anxious mood Adjustment disorder with anxiety Acute postoperative anemia due to expected blood loss Acute deep vein thrombosis (DVT) of brachial vein of right upper extremity (HCC) Anticoagulation management encounter Encounter for therapeutic drug monitoring Attention to ileostomy (HCC)- Primary Attention to ileostomy Fitting and adjustment of gastrointestinal appliance and device Fitting and adjustment of other gastrointestinal appliance and device [facility] Diagnosis Partial small bowel obstruction (HCC)- Primary Unspecified intestinal obstruction Crohn's disease of both small and large intestine with abscess (HCC) Regional enteritis of small intestine with large intestine On total parenteral nutrition (TPN) Other specified conditions influencing health status Abdominal fluid collection Other ascites Feeding difficulties Feeding difficulties and mismanagement Therapeutic drug monitoring Encounter for therapeutic drug monitoring Partial small bowel obstruction (HCC) Unspecified intestinal obstruction Crohn's disease of both small and large intestine with abscess (HCC) Regional enteritis of small intestine with large intestine Small bowel stricture (HCC) Unspecified intestinal obstruction Crohn's disease (HCC) Regional enteritis of unspecified site Acute deep vein thrombosis (DVT) of brachial vein of right upper extremity (HCC) Acute deep vein thrombosis (DVT) of axillary vein of right upper extremity (HCC) Post-op pain Other acute postoperative pain High output ileostomy (HCC) Other symptoms involving digestive system Partial small bowel obstruction (HCC) Unspecified intestinal obstruction Crohn's disease of both small and large intestine with abscess (HCC) Regional enteritis of small intestine with large intestine Small bowel stricture (HCC) Unspecified intestinal obstruction Post-op pain Other acute postoperative pain Difficult intravenous access Other specified conditions influencing health status Adjustment disorder with anxious mood Adjustment disorder with anxiety Acute postoperative anemia due to expected blood loss Acute deep vein thrombosis (DVT) of brachial vein of right upper extremity (HCC) Anticoagulation management encounter Encounter for therapeutic drug monitoring Feeding difficulties- Primary Feeding difficulties and mismanagement [facility] Diagnosis Partial small bowel obstruction (HCC)- Primary Unspecified intestinal obstruction Crohn's disease of both small and large intestine with abscess (HCC) Regional enteritis of small intestine with large intestine On total parenteral nutrition (TPN) Other specified conditions influencing health status Abdominal fluid collection Other ascites Feeding difficulties Feeding difficulties and mismanagement Therapeutic drug monitoring Encounter for therapeutic drug monitoring Partial small bowel obstruction (HCC) Unspecified intestinal obstruction Crohn's disease of both small and large intestine with abscess (HCC) Regional enteritis of small intestine with large intestine Small bowel stricture (HCC) Unspecified intestinal obstruction Crohn's disease (HCC) Regional enteritis of unspecified site Acute deep vein thrombosis (DVT) of brachial vein of right upper extremity (HCC) Acute deep vein thrombosis (DVT) of axillary vein of right upper extremity (HCC) Post-op pain Other acute postoperative pain High output ileostomy (HCC) Other symptoms involving digestive system Partial small bowel obstruction (HCC) Unspecified intestinal obstruction Crohn's disease of both small and large intestine with abscess (HCC) Regional enteritis of small intestine with large intestine Small bowel stricture (HCC) Unspecified intestinal obstruction Post-op pain Other acute postoperative pain Difficult intravenous access Other specified conditions influencing health status Adjustment disorder with anxious mood Adjustment disorder with anxiety Acute postoperative anemia due to expected blood loss Acute deep vein thrombosis (DVT) of brachial vein of right upper extremity (HCC) Anticoagulation management encounter Encounter for therapeutic drug monitoring Ileostomy status (HCC)- Primary Ileostomy status 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 On total parenteral nutrition (TPN) Other specified conditions influencing health status Therapeutic drug monitoring Encounter for therapeutic drug monitoring Feeding difficulties Feeding difficulties and mismanagement [facility] Diagnosis Partial small bowel obstruction (HCC)- Primary Unspecified intestinal obstruction Crohn's disease of both small and large intestine with abscess (HCC) Regional enteritis of small intestine with large intestine On total parenteral nutrition (TPN) Other specified conditions influencing health status Abdominal fluid collection Other ascites Feeding difficulties Feeding difficulties and mismanagement Therapeutic drug monitoring Encounter for therapeutic drug monitoring Partial small bowel obstruction (HCC) Unspecified intestinal obstruction Crohn's disease of both small and large intestine with abscess (HCC) Regional enteritis of small intestine with large intestine Small bowel stricture (HCC) Unspecified intestinal obstruction Crohn's disease (HCC) Regional enteritis of unspecified site Acute deep vein thrombosis (DVT) of brachial vein of right upper extremity (HCC) Acute deep vein thrombosis (DVT) of axillary vein of right upper extremity (HCC) Post-op pain Other acute postoperative pain High output ileostomy (HCC) Other symptoms involving digestive system Partial small bowel obstruction (HCC) Unspecified intestinal obstruction Crohn's disease of both small and large intestine with abscess (HCC) Regional enteritis of small intestine with large intestine Small bowel stricture (HCC) Unspecified intestinal obstruction Post-op pain Other acute postoperative pain Difficult intravenous access Other specified conditions influencing health status Adjustment disorder with anxious mood Adjustment disorder with anxiety Acute postoperative anemia due to expected blood loss Acute deep vein thrombosis (DVT) of brachial vein of right upper extremity (HCC) Anticoagulation management encounter Encounter for therapeutic drug monitoring Acute deep vein thrombosis (DVT) of axillary vein of left upper extremity (HCC)- Primary Anticoagulation management encounter Encounter for therapeutic drug monitoring Acute deep vein thrombosis (DVT) of brachial vein of right upper extremity (HCC) [facility] Diagnosis Partial small bowel obstruction (HCC)- Primary Unspecified intestinal obstruction Crohn's disease of both small and large intestine with abscess (HCC) Regional enteritis of small intestine with large intestine On total parenteral nutrition (TPN) Other specified conditions influencing health status Abdominal fluid collection Other ascites Feeding difficulties Feeding difficulties and mismanagement Therapeutic drug monitoring Encounter for therapeutic drug monitoring Partial small bowel obstruction (HCC) Unspecified intestinal obstruction Crohn's disease of both small and large intestine with abscess (HCC) Regional enteritis of small intestine with large intestine Small bowel stricture (HCC) Unspecified intestinal obstruction Crohn's disease (HCC) Regional enteritis of unspecified site Acute deep vein thrombosis (DVT) of brachial vein of right upper extremity (HCC) Acute deep vein thrombosis (DVT) of axillary vein of right upper extremity (HCC) Post-op pain Other acute postoperative pain High output ileostomy (HCC) Other symptoms involving digestive system Partial small bowel obstruction (HCC) Unspecified intestinal obstruction Crohn's disease of both small and large intestine with abscess (HCC) Regional enteritis of small intestine with large intestine Small bowel stricture (HCC) Unspecified intestinal obstruction Post-op pain Other acute postoperative pain Difficult intravenous access Other specified conditions influencing health status Adjustment disorder with anxious mood Adjustment disorder with anxiety Acute postoperative anemia due to expected blood loss Acute deep vein thrombosis (DVT) of brachial vein of right upper extremity (HCC) Anticoagulation management encounter Encounter for therapeutic drug monitoring Crohn's disease of small and large intestines with complication (HCC)- Primary [facility] Diagnosis Partial small bowel obstruction (HCC)- Primary Unspecified intestinal obstruction Crohn's disease of both small and large intestine with abscess (HCC) Regional enteritis of small intestine with large intestine On total parenteral nutrition (TPN) Other specified conditions influencing health status Abdominal fluid collection Other ascites Feeding difficulties Feeding difficulties and mismanagement Therapeutic drug monitoring Encounter for therapeutic drug monitoring Partial small bowel obstruction (HCC) Unspecified intestinal obstruction Crohn's disease of both small and large intestine with abscess (HCC) Regional enteritis of small intestine with large intestine Small bowel stricture (HCC) Unspecified intestinal obstruction Crohn's disease (HCC) Regional enteritis of unspecified site Acute deep vein thrombosis (DVT) of brachial vein of right upper extremity (HCC) Acute deep vein thrombosis (DVT) of axillary vein of right upper extremity (HCC) Post-op pain Other acute postoperative pain High output ileostomy (HCC) Other symptoms involving digestive system Partial small bowel obstruction (HCC) Unspecified intestinal obstruction Crohn's disease of both small and large intestine with abscess (HCC) Regional enteritis of small intestine with large intestine Small bowel stricture (HCC) Unspecified intestinal obstruction Post-op pain Other acute postoperative pain Difficult intravenous access Other specified conditions influencing health status Adjustment disorder with anxious mood Adjustment disorder with anxiety Acute postoperative anemia due to expected blood loss Acute deep vein thrombosis (DVT) of brachial vein of right upper extremity (HCC) Anticoagulation management encounter Encounter for therapeutic drug monitoring Acute deep vein thrombosis (DVT) of axillary vein of left upper extremity (HCC)- Primary Anticoagulation management encounter Encounter for therapeutic drug monitoring Acute deep vein thrombosis (DVT) of brachial vein of right upper extremity (HCC) [facility] Partial small bowel obstruction (HCC)- Primary Unspecified intestinal obstruction Crohn's disease of both small and large intestine with abscess (HCC) Regional enteritis of small intestine with large intestine On total parenteral nutrition (TPN) Other specified conditions influencing health status Abdominal fluid collection Other ascites Feeding difficulties Feeding difficulties and mismanagement Therapeutic drug monitoring Encounter for therapeutic drug monitoring Partial small bowel obstruction (HCC) Unspecified intestinal obstruction Crohn's disease of both small and large intestine with abscess (HCC) Regional enteritis of small intestine with large intestine Small bowel stricture (HCC) Unspecified intestinal obstruction Crohn's disease (HCC) Regional enteritis of unspecified site Acute deep vein thrombosis (DVT) of brachial vein of right upper extremity (HCC) Acute deep vein thrombosis (DVT) of axillary vein of right upper extremity (HCC) Post-op pain Other acute postoperative pain High output ileostomy (HCC) Other symptoms involving digestive system Partial small bowel obstruction (HCC) Unspecified intestinal obstruction Crohn's disease of both small and large intestine with abscess (HCC) Regional enteritis of small intestine with large intestine Small bowel stricture (HCC) Unspecified intestinal obstruction Post-op pain Other acute postoperative pain Difficult intravenous access Other specified conditions influencing health status Adjustment disorder with anxious mood Adjustment disorder with anxiety Acute postoperative anemia due to expected blood loss Acute deep vein thrombosis (DVT) of brachial vein of right upper extremity (HCC) Anticoagulation management encounter Encounter for therapeutic drug monitoring High output ileostomy (HCC) Other symptoms involving digestive system [facility] Diagnosis Partial small bowel obstruction (HCC)- Primary Unspecified intestinal obstruction Crohn's disease of both small and large intestine with abscess (HCC) Regional enteritis of small intestine with large intestine On total parenteral nutrition (TPN) Other specified conditions influencing health status Abdominal fluid collection Other ascites Feeding difficulties Feeding difficulties and mismanagement Therapeutic drug monitoring Encounter for therapeutic drug monitoring Partial small bowel obstruction (HCC) Unspecified intestinal obstruction Crohn's disease of both small and large intestine with abscess (HCC) Regional enteritis of small intestine with large intestine Small bowel stricture (HCC) Unspecified intestinal obstruction Crohn's disease (HCC) Regional enteritis of unspecified site Acute deep vein thrombosis (DVT) of brachial vein of right upper extremity (HCC) Acute deep vein thrombosis (DVT) of axillary vein of right upper extremity (HCC) Post-op pain Other acute postoperative pain High output ileostomy (HCC) Other symptoms involving digestive system Partial small bowel obstruction (HCC) Unspecified intestinal obstruction Crohn's disease of both small and large intestine with abscess (HCC) Regional enteritis of small intestine with large intestine Small bowel stricture (HCC) Unspecified intestinal obstruction Post-op pain Other acute postoperative pain Difficult intravenous access Other specified conditions influencing health status Adjustment disorder with anxious mood Adjustment disorder with anxiety Acute postoperative anemia due to expected blood loss Acute deep vein thrombosis (DVT) of brachial vein of right upper extremity (HCC) Anticoagulation management encounter Encounter for therapeutic drug monitoring Crohn's disease of small and large intestines with complication (HCC)- Primary [facility] Diagnosis Partial small bowel obstruction (HCC)- Primary Unspecified intestinal obstruction Crohn's disease of both small and large intestine with abscess (HCC) Regional enteritis of small intestine with large intestine On total parenteral nutrition (TPN) Other specified conditions influencing health status Abdominal fluid collection Other ascites Feeding difficulties Feeding difficulties and mismanagement Therapeutic drug monitoring Encounter for therapeutic drug monitoring Partial small bowel obstruction (HCC) Unspecified intestinal obstruction Crohn's disease of both small and large intestine with abscess (HCC) Regional enteritis of small intestine with large intestine Small bowel stricture (HCC) Unspecified intestinal obstruction Crohn's disease (HCC) Regional enteritis of unspecified site Acute deep vein thrombosis (DVT) of brachial vein of right upper extremity (HCC) Acute deep vein thrombosis (DVT) of axillary vein of right upper extremity (HCC) Post-op pain Other acute postoperative pain High output ileostomy (HCC) Other symptoms involving digestive system Partial small bowel obstruction (HCC) Unspecified intestinal obstruction Crohn's disease of both small and large intestine with abscess (HCC) Regional enteritis of small intestine with large intestine Small bowel stricture (HCC) Unspecified intestinal obstruction Post-op pain Other acute postoperative pain Difficult intravenous access Other specified conditions influencing health status Adjustment disorder with anxious mood Adjustment disorder with anxiety Acute postoperative anemia due to expected blood loss Acute deep vein thrombosis (DVT) of brachial vein of right upper extremity (HCC) Anticoagulation management encounter Encounter for therapeutic drug monitoring Attention to ileostomy (HCC)- Primary Attention to ileostomy Fitting and adjustment of gastrointestinal appliance and device Fitting and adjustment of other gastrointestinal appliance and device [facility] Diagnosis Partial small bowel obstruction (HCC)- Primary Unspecified intestinal obstruction Crohn's disease of both small and large intestine with abscess (HCC) Regional enteritis of small intestine with large intestine On total parenteral nutrition (TPN) Other specified conditions influencing health status Abdominal fluid collection Other ascites Feeding difficulties Feeding difficulties and mismanagement Therapeutic drug monitoring Encounter for therapeutic drug monitoring Partial small bowel obstruction (HCC) Unspecified intestinal obstruction Crohn's disease of both small and large intestine with abscess (HCC) Regional enteritis of small intestine with large intestine Small bowel stricture (HCC) Unspecified intestinal obstruction Crohn's disease (HCC) Regional enteritis of unspecified site Acute deep vein thrombosis (DVT) of brachial vein of right upper extremity (HCC) Acute deep vein thrombosis (DVT) of axillary vein of right upper extremity (HCC) Post-op pain Other acute postoperative pain High output ileostomy (HCC) Other symptoms involving digestive system Partial small bowel obstruction (HCC) Unspecified intestinal obstruction Crohn's disease of both small and large intestine with abscess (HCC) Regional enteritis of small intestine with large intestine Small bowel stricture (HCC) Unspecified intestinal obstruction Post-op pain Other acute postoperative pain Difficult intravenous access Other specified conditions influencing health status Adjustment disorder with anxious mood Adjustment disorder with anxiety Acute postoperative anemia due to expected blood loss Acute deep vein thrombosis (DVT) of brachial vein of right upper extremity (HCC) Anticoagulation management encounter Encounter for therapeutic drug monitoring Crohn's disease of small and large intestines with complication (HCC) [facility] Diagnosis Partial small bowel obstruction (HCC)- Primary Unspecified intestinal obstruction Crohn's disease of both small and large intestine with abscess (HCC) Regional enteritis of small intestine with large intestine On total parenteral nutrition (TPN) Other specified conditions influencing health status Abdominal fluid collection Other ascites Feeding difficulties Feeding difficulties and mismanagement Therapeutic drug monitoring Encounter for therapeutic drug monitoring Partial small bowel obstruction (HCC) Unspecified intestinal obstruction Crohn's disease of both small and large intestine with abscess (HCC) Regional enteritis of small intestine with large intestine Small bowel stricture (HCC) Unspecified intestinal obstruction Crohn's disease (HCC) Regional enteritis of unspecified site Acute deep vein thrombosis (DVT) of brachial vein of right upper extremity (HCC) Acute deep vein thrombosis (DVT) of axillary vein of right upper extremity (HCC) Post-op pain Other acute postoperative pain High output ileostomy (HCC) Other symptoms involving digestive system Partial small bowel obstruction (HCC) Unspecified intestinal obstruction Crohn's disease of both small and large intestine with abscess (HCC) Regional enteritis of small intestine with large intestine Small bowel stricture (HCC) Unspecified intestinal obstruction Post-op pain Other acute postoperative pain Difficult intravenous access Other specified conditions influencing health status Adjustment disorder with anxious mood Adjustment disorder with anxiety Acute postoperative anemia due to expected blood loss Acute deep vein thrombosis (DVT) of brachial vein of right upper extremity (HCC) Anticoagulation management encounter Encounter for therapeutic drug monitoring Feeling of incomplete bladder emptying- Primary Incomplete bladder emptying 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) [facility] Diagnosis Partial small bowel obstruction (HCC)- Primary Unspecified intestinal obstruction Crohn's disease of both small and large intestine with abscess (HCC) Regional enteritis of small intestine with large intestine On total parenteral nutrition (TPN) Other specified conditions influencing health status Abdominal fluid collection Other ascites Feeding difficulties Feeding difficulties and mismanagement Therapeutic drug monitoring Encounter for therapeutic drug monitoring Partial small bowel obstruction (HCC) Unspecified intestinal obstruction Crohn's disease of both small and large intestine with abscess (HCC) Regional enteritis of small intestine with large intestine Small bowel stricture (HCC) Unspecified intestinal obstruction Crohn's disease (HCC) Regional enteritis of unspecified site Acute deep vein thrombosis (DVT) of brachial vein of right upper extremity (HCC) Acute deep vein thrombosis (DVT) of axillary vein of right upper extremity (HCC) Post-op pain Other acute postoperative pain High output ileostomy (HCC) Other symptoms involving digestive system Partial small bowel obstruction (HCC) Unspecified intestinal obstruction Crohn's disease of both small and large intestine with abscess (HCC) Regional enteritis of small intestine with large intestine Small bowel stricture (HCC) Unspecified intestinal obstruction Post-op pain Other acute postoperative pain Difficult intravenous access Other specified conditions influencing health status Adjustment disorder with anxious mood Adjustment disorder with anxiety Acute postoperative anemia due to expected blood loss Acute deep vein thrombosis (DVT) of brachial vein of right upper extremity (HCC) Anticoagulation management encounter Encounter for therapeutic drug monitoring Crohn's disease of small and large intestines with complication (HCC) [facility] Diagnosis Partial small bowel obstruction (HCC)- Primary Unspecified intestinal obstruction Crohn's disease of both small and large intestine with abscess (HCC) Regional enteritis of small intestine with large intestine On total parenteral nutrition (TPN) Other specified conditions influencing health status Abdominal fluid collection Other ascites Feeding difficulties Feeding difficulties and mismanagement Therapeutic drug monitoring Encounter for therapeutic drug monitoring Partial small bowel obstruction (HCC) Unspecified intestinal obstruction Crohn's disease of both small and large intestine with abscess (HCC) Regional enteritis of small intestine with large intestine Small bowel stricture (HCC) Unspecified intestinal obstruction Crohn's disease (HCC) Regional enteritis of unspecified site Acute deep vein thrombosis (DVT) of brachial vein of right upper extremity (HCC) Acute deep vein thrombosis (DVT) of axillary vein of right upper extremity (HCC) Post-op pain Other acute postoperative pain High output ileostomy (HCC) Other symptoms involving digestive system Partial small bowel obstruction (HCC) Unspecified intestinal obstruction Crohn's disease of both small and large intestine with abscess (HCC) Regional enteritis of small intestine with large intestine Small bowel stricture (HCC) Unspecified intestinal obstruction Post-op pain Other acute postoperative pain Difficult intravenous access Other specified conditions influencing health status Adjustment disorder with anxious mood Adjustment disorder with anxiety Acute postoperative anemia due to expected blood loss Acute deep vein thrombosis (DVT) of brachial vein of right upper extremity (HCC) Anticoagulation management encounter Encounter for therapeutic drug monitoring Crohn's disease of small and large intestines with complication (HCC) [facility] Diagnosis Partial small bowel obstruction (HCC)- Primary Unspecified intestinal obstruction Crohn's disease of both small and large intestine with abscess (HCC) Regional enteritis of small intestine with large intestine On total parenteral nutrition (TPN) Other specified conditions influencing health status Abdominal fluid collection Other ascites Feeding difficulties Feeding difficulties and mismanagement Therapeutic drug monitoring Encounter for therapeutic drug monitoring Partial small bowel obstruction (HCC) Unspecified intestinal obstruction Crohn's disease of both small and large intestine with abscess (HCC) Regional enteritis of small intestine with large intestine Small bowel stricture (HCC) Unspecified intestinal obstruction Crohn's disease (HCC) Regional enteritis of unspecified site Acute deep vein thrombosis (DVT) of brachial vein of right upper extremity (HCC) Acute deep vein thrombosis (DVT) of axillary vein of right upper extremity (HCC) Post-op pain Other acute postoperative pain High output ileostomy (HCC) Other symptoms involving digestive system Partial small bowel obstruction (HCC) Unspecified intestinal obstruction Crohn's disease of both small and large intestine with abscess (HCC) Regional enteritis of small intestine with large intestine Small bowel stricture (HCC) Unspecified intestinal obstruction Post-op pain Other acute postoperative pain Difficult intravenous access Other specified conditions influencing health status Adjustment disorder with anxious mood Adjustment disorder with anxiety Acute postoperative anemia due to expected blood loss Acute deep vein thrombosis (DVT) of brachial vein of right upper extremity (HCC) Anticoagulation management encounter Encounter for therapeutic drug monitoring Feeling of incomplete bladder emptying- Primary Incomplete bladder emptying 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) Screening for genitourinary condition Screening for other and unspecified genitourinary condition [facility] Diagnosis Partial small bowel obstruction (HCC)- Primary Unspecified intestinal obstruction Crohn's disease of both small and large intestine with abscess (HCC) Regional enteritis of small intestine with large intestine On total parenteral nutrition (TPN) Other specified conditions influencing health status Abdominal fluid collection Other ascites Feeding difficulties Feeding difficulties and mismanagement Therapeutic drug monitoring Encounter for therapeutic drug monitoring Partial small bowel obstruction (HCC) Unspecified intestinal obstruction Crohn's disease of both small and large intestine with abscess (HCC) Regional enteritis of small intestine with large intestine Small bowel stricture (HCC) Unspecified intestinal obstruction Crohn's disease (HCC) Regional enteritis of unspecified site Acute deep vein thrombosis (DVT) of brachial vein of right upper extremity (HCC) Acute deep vein thrombosis (DVT) of axillary vein of right upper extremity (HCC) Post-op pain Other acute postoperative pain High output ileostomy (HCC) Other symptoms involving digestive system Partial small bowel obstruction (HCC) Unspecified intestinal obstruction Crohn's disease of both small and large intestine with abscess (HCC) Regional enteritis of small intestine with large intestine Small bowel stricture (HCC) Unspecified intestinal obstruction Post-op pain Other acute postoperative pain Difficult intravenous access Other specified conditions influencing health status Adjustment disorder with anxious mood Adjustment disorder with anxiety Acute postoperative anemia due to expected blood loss Acute deep vein thrombosis (DVT) of brachial vein of right upper extremity (HCC) Anticoagulation management encounter Encounter for therapeutic drug monitoring Crohn's disease of small and large intestines with complication (HCC)- Primary Crohn's disease of small and large intestines with complication (HCC) [facility] Diagnosis Partial small bowel obstruction (HCC)- Primary Unspecified intestinal obstruction Crohn's disease of both small and large intestine with abscess (HCC) Regional enteritis of small intestine with large intestine On total parenteral nutrition (TPN) Other specified conditions influencing health status Abdominal fluid collection Other ascites Feeding difficulties Feeding difficulties and mismanagement Therapeutic drug monitoring Encounter for therapeutic drug monitoring Partial small bowel obstruction (HCC) Unspecified intestinal obstruction Crohn's disease of both small and large intestine with abscess (HCC) Regional enteritis of small intestine with large intestine Small bowel stricture (HCC) Unspecified intestinal obstruction Crohn's disease (HCC) Regional enteritis of unspecified site Acute deep vein thrombosis (DVT) of brachial vein of right upper extremity (HCC) Acute deep vein thrombosis (DVT) of axillary vein of right upper extremity (HCC) Post-op pain Other acute postoperative pain High output ileostomy (HCC) Other symptoms involving digestive system Partial small bowel obstruction (HCC) Unspecified intestinal obstruction Crohn's disease of both small and large intestine with abscess (HCC) Regional enteritis of small intestine with large intestine Small bowel stricture (HCC) Unspecified intestinal obstruction Post-op pain Other acute postoperative pain Difficult intravenous access Other specified conditions influencing health status Adjustment disorder with anxious mood Adjustment disorder with anxiety Acute postoperative anemia due to expected blood loss Acute deep vein thrombosis (DVT) of brachial vein of right upper extremity (HCC) Anticoagulation management encounter Encounter for therapeutic drug monitoring Attention to ileostomy (HCC)- Primary Attention to ileostomy Crohn's disease of small and large intestines with complication (HCC) [facility] Diagnosis Partial small bowel obstruction (HCC)- Primary Unspecified intestinal obstruction Crohn's disease of both small and large intestine with abscess (HCC) Regional enteritis of small intestine with large intestine On total parenteral nutrition (TPN) Other specified conditions influencing health status Abdominal fluid collection Other ascites Feeding difficulties Feeding difficulties and mismanagement Therapeutic drug monitoring Encounter for therapeutic drug monitoring Partial small bowel obstruction (HCC) Unspecified intestinal obstruction Crohn's disease of both small and large intestine with abscess (HCC) Regional enteritis of small intestine with large intestine Small bowel stricture (HCC) Unspecified intestinal obstruction Crohn's disease (HCC) Regional enteritis of unspecified site Acute deep vein thrombosis (DVT) of brachial vein of right upper extremity (HCC) Acute deep vein thrombosis (DVT) of axillary vein of right upper extremity (HCC) Post-op pain Other acute postoperative pain High output ileostomy (HCC) Other symptoms involving digestive system Partial small bowel obstruction (HCC) Unspecified intestinal obstruction Crohn's disease of both small and large intestine with abscess (HCC) Regional enteritis of small intestine with large intestine Small bowel stricture (HCC) Unspecified intestinal obstruction Post-op pain Other acute postoperative pain Difficult intravenous access Other specified conditions influencing health status Adjustment disorder with anxious mood Adjustment disorder with anxiety Acute postoperative anemia due to expected blood loss Acute deep vein thrombosis (DVT) of brachial vein of right upper extremity (HCC) Anticoagulation management encounter Encounter for therapeutic drug monitoring 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, unspecified laterality Encounter for surgical aftercare following surgery of digestive system Aftercare following surgery of the teeth, oral cavity and digestive system, NEC 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 Crohn's disease of small and large intestines with complication (HCC) [facility] Diagnosis Partial small bowel obstruction (HCC)- Primary Unspecified intestinal obstruction Crohn's disease of both small and large intestine with abscess (HCC) Regional enteritis of small intestine with large intestine On total parenteral nutrition (TPN) Other specified conditions influencing health status Abdominal fluid collection Other ascites Feeding difficulties Feeding difficulties and mismanagement Therapeutic drug monitoring Encounter for therapeutic drug monitoring Partial small bowel obstruction (HCC) Unspecified intestinal obstruction Crohn's disease of both small and large intestine with abscess (HCC) Regional enteritis of small intestine with large intestine Small bowel stricture (HCC) Unspecified intestinal obstruction Crohn's disease (HCC) Regional enteritis of unspecified site Acute deep vein thrombosis (DVT) of brachial vein of right upper extremity (HCC) Acute deep vein thrombosis (DVT) of axillary vein of right upper extremity (HCC) Post-op pain Other acute postoperative pain High output ileostomy (HCC) Other symptoms involving digestive system Partial small bowel obstruction (HCC) Unspecified intestinal obstruction Crohn's disease of both small and large intestine with abscess (HCC) Regional enteritis of small intestine with large intestine Small bowel stricture (HCC) Unspecified intestinal obstruction Post-op pain Other acute postoperative pain Difficult intravenous access Other specified conditions influencing health status Adjustment disorder with anxious mood Adjustment disorder with anxiety Acute postoperative anemia due to expected blood loss Acute deep vein thrombosis (DVT) of brachial vein of right upper extremity (HCC) Anticoagulation management encounter Encounter for therapeutic drug monitoring Multiple benign nevi- Primary Benign neoplasm of skin, site unspecified Skin exam, screening for cancer Screening for malignant neoplasm of the skin Seborrheic keratoses Other seborrheic keratosis Lentigines Other dyschromia Chin angioma Nevus, non-neoplastic Subcutaneous nodule Localized superficial swelling, mass, or lump Rash and nonspecific skin eruption Rash and other nonspecific skin eruption Crohn's disease of small and large intestines with complication (HCC) [facility] Partial small bowel obstruction (HCC)- Primary Unspecified intestinal obstruction Crohn's disease of both small and large intestine with abscess (HCC) Regional enteritis of small intestine with large intestine On total parenteral nutrition (TPN) Other specified conditions influencing health status Abdominal fluid collection Other ascites Feeding difficulties Feeding difficulties and mismanagement Therapeutic drug monitoring Encounter for therapeutic drug monitoring Partial small bowel obstruction (HCC) Unspecified intestinal obstruction Crohn's disease of both small and large intestine with abscess (HCC) Regional enteritis of small intestine with large intestine Small bowel stricture (HCC) Unspecified intestinal obstruction Crohn's disease (HCC) Regional enteritis of unspecified site Acute deep vein thrombosis (DVT) of brachial vein of right upper extremity (HCC) Acute deep vein thrombosis (DVT) of axillary vein of right upper extremity (HCC) Post-op pain Other acute postoperative pain High output ileostomy (HCC) Other symptoms involving digestive system Partial small bowel obstruction (HCC) Unspecified intestinal obstruction Crohn's disease of both small and large intestine with abscess (HCC) Regional enteritis of small intestine with large intestine Small bowel stricture (HCC) Unspecified intestinal obstruction Post-op pain Other acute postoperative pain Difficult intravenous access Other specified conditions influencing health status Adjustment disorder with anxious mood Adjustment disorder with anxiety Acute postoperative anemia due to expected blood loss Acute deep vein thrombosis (DVT) of brachial vein of right upper extremity (HCC) Anticoagulation management encounter Encounter for therapeutic drug monitoring Disorders of fluid, electrolyte, and acid-base balance- Primary Electrolyte and fluid disorders not elsewhere classified Elevated C-reactive protein Elevated C-reactive protein (CRP) Leukocytosis, unspecified type On total parenteral nutrition (TPN) Other specified conditions influencing health status Toxic effect of manganese or manganese compound, accidental or unintentional, subsequent encounter Selenium deficiency Mineral deficiency, not elsewhere classified Acute deep vein thrombosis (DVT) of axillary vein of left upper extremity (HCC)- Primary Crohn's disease of small and large intestines with complication (HCC) [facility] Diagnosis Partial small bowel obstruction (HCC)- Primary Unspecified intestinal obstruction Crohn's disease of both small and large intestine with abscess (HCC) Regional enteritis of small intestine with large intestine On total parenteral nutrition (TPN) Other specified conditions influencing health status Abdominal fluid collection Other ascites Feeding difficulties Feeding difficulties and mismanagement Therapeutic drug monitoring Encounter for therapeutic drug monitoring Partial small bowel obstruction (HCC) Unspecified intestinal obstruction Crohn's disease of both small and large intestine with abscess (HCC) Regional enteritis of small intestine with large intestine Small bowel stricture (HCC) Unspecified intestinal obstruction Crohn's disease (HCC) Regional enteritis of unspecified site Acute deep vein thrombosis (DVT) of brachial vein of right upper extremity (HCC) Acute deep vein thrombosis (DVT) of axillary vein of right upper extremity (HCC) Post-op pain Other acute postoperative pain High output ileostomy (HCC) Other symptoms involving digestive system Partial small bowel obstruction (HCC) Unspecified intestinal obstruction Crohn's disease of both small and large intestine with abscess (HCC) Regional enteritis of small intestine with large intestine Small bowel stricture (HCC) Unspecified intestinal obstruction Post-op pain Other acute postoperative pain Difficult intravenous access Other specified conditions influencing health status Adjustment disorder with anxious mood Adjustment disorder with anxiety Acute postoperative anemia due to expected blood loss Acute deep vein thrombosis (DVT) of brachial vein of right upper extremity (HCC) Anticoagulation management encounter Encounter for therapeutic drug monitoring On total parenteral nutrition (TPN)- Primary Other specified conditions influencing health status Crohn's disease of small and large intestines with complication (HCC) [facility] Diagnosis Partial small bowel obstruction (HCC)- Primary Unspecified intestinal obstruction Crohn's disease of both small and large intestine with abscess (HCC) Regional enteritis of small intestine with large intestine On total parenteral nutrition (TPN) Other specified conditions influencing health status Abdominal fluid collection Other ascites Feeding difficulties Feeding difficulties and mismanagement Therapeutic drug monitoring Encounter for therapeutic drug monitoring Partial small bowel obstruction (HCC) Unspecified intestinal obstruction Crohn's disease of both small and large intestine with abscess (HCC) Regional enteritis of small intestine with large intestine Small bowel stricture (HCC) Unspecified intestinal obstruction Crohn's disease (HCC) Regional enteritis of unspecified site Acute deep vein thrombosis (DVT) of brachial vein of right upper extremity (HCC) Acute deep vein thrombosis (DVT) of axillary vein of right upper extremity (HCC) Post-op pain Other acute postoperative pain High output ileostomy (HCC) Other symptoms involving digestive system Partial small bowel obstruction (HCC) Unspecified intestinal obstruction Crohn's disease of both small and large intestine with abscess (HCC) Regional enteritis of small intestine with large intestine Small bowel stricture (HCC) Unspecified intestinal obstruction Post-op pain Other acute postoperative pain Difficult intravenous access Other specified conditions influencing health status Adjustment disorder with anxious mood Adjustment disorder with anxiety Acute postoperative anemia due to expected blood loss Acute deep vein thrombosis (DVT) of brachial vein of right upper extremity (HCC) Anticoagulation management encounter Encounter for therapeutic drug monitoring Disorders of fluid, electrolyte, and acid-base balance Electrolyte and fluid disorders not elsewhere classified On total parenteral nutrition (TPN) Other specified conditions influencing health status Leukocytosis, unspecified type Selenium deficiency Mineral deficiency, not elsewhere classified Toxic effect of manganese or manganese compound, accidental or unintentional, subsequent encounter Elevated C-reactive protein Elevated C-reactive protein (CRP) Crohn's disease of small and large intestines with complication (HCC) [facility] Diagnosis Partial small bowel obstruction (HCC)- Primary Unspecified intestinal obstruction Crohn's disease of both small and large intestine with abscess (HCC) Regional enteritis of small intestine with large intestine On total parenteral nutrition (TPN) Other specified conditions influencing health status Abdominal fluid collection Other ascites Feeding difficulties Feeding difficulties and mismanagement Therapeutic drug monitoring Encounter for therapeutic drug monitoring Partial small bowel obstruction (HCC) Unspecified intestinal obstruction Crohn's disease of both small and large intestine with abscess (HCC) Regional enteritis of small intestine with large intestine Small bowel stricture (HCC) Unspecified intestinal obstruction Crohn's disease (HCC) Regional enteritis of unspecified site Acute deep vein thrombosis (DVT) of brachial vein of right upper extremity (HCC) Acute deep vein thrombosis (DVT) of axillary vein of right upper extremity (HCC) Post-op pain Other acute postoperative pain High output ileostomy (HCC) Other symptoms involving digestive system Partial small bowel obstruction (HCC) Unspecified intestinal obstruction Crohn's disease of both small and large intestine with abscess (HCC) Regional enteritis of small intestine with large intestine Small bowel stricture (HCC) Unspecified intestinal obstruction Post-op pain Other acute postoperative pain Difficult intravenous access Other specified conditions influencing health status Adjustment disorder with anxious mood Adjustment disorder with anxiety Acute postoperative anemia due to expected blood loss Acute deep vein thrombosis (DVT) of brachial vein of right upper extremity (HCC) Anticoagulation management encounter Encounter for therapeutic drug monitoring Acute deep vein thrombosis (DVT) of axillary vein of left upper extremity (HCC)- Primary Anticoagulation management encounter Encounter for therapeutic drug monitoring Acute deep vein thrombosis (DVT) of brachial vein of right upper extremity (HCC) Crohn's disease of small and large intestines with complication (HCC) [facility] Diagnosis Partial small bowel obstruction (HCC)- Primary Unspecified intestinal obstruction Crohn's disease of both small and large intestine with abscess (HCC) Regional enteritis of small intestine with large intestine On total parenteral nutrition (TPN) Other specified conditions influencing health status Abdominal fluid collection Other ascites Feeding difficulties Feeding difficulties and mismanagement Therapeutic drug monitoring Encounter for therapeutic drug monitoring Partial small bowel obstruction (HCC) Unspecified intestinal obstruction Crohn's disease of both small and large intestine with abscess (HCC) Regional enteritis of small intestine with large intestine Small bowel stricture (HCC) Unspecified intestinal obstruction Crohn's disease (HCC) Regional enteritis of unspecified site Acute deep vein thrombosis (DVT) of brachial vein of right upper extremity (HCC) Acute deep vein thrombosis (DVT) of axillary vein of right upper extremity (HCC) Post-op pain Other acute postoperative pain High output ileostomy (HCC) Other symptoms involving digestive system Partial small bowel obstruction (HCC) Unspecified intestinal obstruction Crohn's disease of both small and large intestine with abscess (HCC) Regional enteritis of small intestine with large intestine Small bowel stricture (HCC) Unspecified intestinal obstruction Post-op pain Other acute postoperative pain Difficult intravenous access Other specified conditions influencing health status Adjustment disorder with anxious mood Adjustment disorder with anxiety Acute postoperative anemia due to expected blood loss Acute deep vein thrombosis (DVT) of brachial vein of right upper extremity (HCC) Anticoagulation management encounter Encounter for therapeutic drug monitoring Crohn's disease of small and large intestines with complication (HCC)- Primary Disorders of fluid, electrolyte, and acid-base balance Electrolyte and fluid disorders not elsewhere classified On total parenteral nutrition (TPN) Other specified conditions influencing health status Leukocytosis, unspecified type Crohn's disease of small and large intestines with complication (HCC) [facility] Diagnosis Partial small bowel obstruction (HCC)- Primary Unspecified intestinal obstruction Crohn's disease of both small and large intestine with abscess (HCC) Regional enteritis of small intestine with large intestine On total parenteral nutrition (TPN) Other specified conditions influencing health status Abdominal fluid collection Other ascites Feeding difficulties Feeding difficulties and mismanagement Therapeutic drug monitoring Encounter for therapeutic drug monitoring Partial small bowel obstruction (HCC) Unspecified intestinal obstruction Crohn's disease of both small and large intestine with abscess (HCC) Regional enteritis of small intestine with large intestine Small bowel stricture (HCC) Unspecified intestinal obstruction Crohn's disease (HCC) Regional enteritis of unspecified site Acute deep vein thrombosis (DVT) of brachial vein of right upper extremity (HCC) Acute deep vein thrombosis (DVT) of axillary vein of right upper extremity (HCC) Post-op pain Other acute postoperative pain High output ileostomy (HCC) Other symptoms involving digestive system Partial small bowel obstruction (HCC) Unspecified intestinal obstruction Crohn's disease of both small and large intestine with abscess (HCC) Regional enteritis of small intestine with large intestine Small bowel stricture (HCC) Unspecified intestinal obstruction Post-op pain Other acute postoperative pain Difficult intravenous access Other specified conditions influencing health status Adjustment disorder with anxious mood Adjustment disorder with anxiety Acute postoperative anemia due to expected blood loss Acute deep vein thrombosis (DVT) of brachial vein of right upper extremity (HCC) Anticoagulation management encounter Encounter for therapeutic drug monitoring Disorders of fluid, electrolyte, and acid-base balance Electrolyte and fluid disorders not elsewhere classified On total parenteral nutrition (TPN) Other specified conditions influencing health status Leukocytosis, unspecified type Crohn's disease of small and large intestines with complication (HCC) [facility] Diagnosis Partial small bowel obstruction (HCC)- Primary Unspecified intestinal obstruction Crohn's disease of both small and large intestine with abscess (HCC) Regional enteritis of small intestine with large intestine On total parenteral nutrition (TPN) Other specified conditions influencing health status Abdominal fluid collection Other ascites Feeding difficulties Feeding difficulties and mismanagement Therapeutic drug monitoring Encounter for therapeutic drug monitoring Partial small bowel obstruction (HCC) Unspecified intestinal obstruction Crohn's disease of both small and large intestine with abscess (HCC) Regional enteritis of small intestine with large intestine Small bowel stricture (HCC) Unspecified intestinal obstruction Crohn's disease (HCC) Regional enteritis of unspecified site Acute deep vein thrombosis (DVT) of brachial vein of right upper extremity (HCC) Acute deep vein thrombosis (DVT) of axillary vein of right upper extremity (HCC) Post-op pain Other acute postoperative pain High output ileostomy (HCC) Other symptoms involving digestive system Partial small bowel obstruction (HCC) Unspecified intestinal obstruction Crohn's disease of both small and large intestine with abscess (HCC) Regional enteritis of small intestine with large intestine Small bowel stricture (HCC) Unspecified intestinal obstruction Post-op pain Other acute postoperative pain Difficult intravenous access Other specified conditions influencing health status Adjustment disorder with anxious mood Adjustment disorder with anxiety Acute postoperative anemia due to expected blood loss Acute deep vein thrombosis (DVT) of brachial vein of right upper extremity (HCC) Anticoagulation management encounter Encounter for therapeutic drug monitoring 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 Personal history of other diseases of digestive system On total parenteral nutrition (TPN) Other specified conditions influencing health status Malnutrition of mild degree (HCC) Malnutrition of mild degree Crohn's disease of small and large intestines with complication (HCC) [facility] Diagnosis Partial small bowel obstruction (HCC)- Primary Unspecified intestinal obstruction Crohn's disease of both small and large intestine with abscess (HCC) Regional enteritis of small intestine with large intestine On total parenteral nutrition (TPN) Other specified conditions influencing health status Abdominal fluid collection Other ascites Feeding difficulties Feeding difficulties and mismanagement Therapeutic drug monitoring Encounter for therapeutic drug monitoring Partial small bowel obstruction (HCC) Unspecified intestinal obstruction Crohn's disease of both small and large intestine with abscess (HCC) Regional enteritis of small intestine with large intestine Small bowel stricture (HCC) Unspecified intestinal obstruction Crohn's disease (HCC) Regional enteritis of unspecified site Acute deep vein thrombosis (DVT) of brachial vein of right upper extremity (HCC) Acute deep vein thrombosis (DVT) of axillary vein of right upper extremity (HCC) Post-op pain Other acute postoperative pain High output ileostomy (HCC) Other symptoms involving digestive system Partial small bowel obstruction (HCC) Unspecified intestinal obstruction Crohn's disease of both small and large intestine with abscess (HCC) Regional enteritis of small intestine with large intestine Small bowel stricture (HCC) Unspecified intestinal obstruction Post-op pain Other acute postoperative pain Difficult intravenous access Other specified conditions influencing health status Adjustment disorder with anxious mood Adjustment disorder with anxiety Acute postoperative anemia due to expected blood loss Acute deep vein thrombosis (DVT) of brachial vein of right upper extremity (HCC) Anticoagulation management encounter Encounter for therapeutic drug monitoring Crohn's disease with complication, unspecified gastrointestinal tract location (HCC)- Primary On total parenteral nutrition (TPN) Other specified conditions influencing health status Crohn's disease of small and large intestines with complication (HCC) [facility] Diagnosis Partial small bowel obstruction (HCC)- Primary Unspecified intestinal obstruction Crohn's disease of both small and large intestine with abscess (HCC) Regional enteritis of small intestine with large intestine On total parenteral nutrition (TPN) Other specified conditions influencing health status Abdominal fluid collection Other ascites Feeding difficulties Feeding difficulties and mismanagement Therapeutic drug monitoring Encounter for therapeutic drug monitoring Partial small bowel obstruction (HCC) Unspecified intestinal obstruction Crohn's disease of both small and large intestine with abscess (HCC) Regional enteritis of small intestine with large intestine Small bowel stricture (HCC) Unspecified intestinal obstruction Crohn's disease (HCC) Regional enteritis of unspecified site Acute deep vein thrombosis (DVT) of brachial vein of right upper extremity (HCC) Acute deep vein thrombosis (DVT) of axillary vein of right upper extremity (HCC) Post-op pain Other acute postoperative pain High output ileostomy (HCC) Other symptoms involving digestive system Partial small bowel obstruction (HCC) Unspecified intestinal obstruction Crohn's disease of both small and large intestine with abscess (HCC) Regional enteritis of small intestine with large intestine Small bowel stricture (HCC) Unspecified intestinal obstruction Post-op pain Other acute postoperative pain Difficult intravenous access Other specified conditions influencing health status Adjustment disorder with anxious mood Adjustment disorder with anxiety Acute postoperative anemia due to expected blood loss Acute deep vein thrombosis (DVT) of brachial vein of right upper extremity (HCC) Anticoagulation management encounter Encounter for therapeutic drug monitoring Crohn's disease with complication, unspecified gastrointestinal tract location (HCC)- Primary Crohn's disease of small and large intestines with complication (HCC) [facility] Diagnosis Partial small bowel obstruction (HCC)- Primary Unspecified intestinal obstruction Crohn's disease of both small and large intestine with abscess (HCC) Regional enteritis of small intestine with large intestine On total parenteral nutrition (TPN) Other specified conditions influencing health status Abdominal fluid collection Other ascites Feeding difficulties Feeding difficulties and mismanagement Therapeutic drug monitoring Encounter for therapeutic drug monitoring Partial small bowel obstruction (HCC) Unspecified intestinal obstruction Crohn's disease of both small and large intestine with abscess (HCC) Regional enteritis of small intestine with large intestine Small bowel stricture (HCC) Unspecified intestinal obstruction Crohn's disease (HCC) Regional enteritis of unspecified site Acute deep vein thrombosis (DVT) of brachial vein of right upper extremity (HCC) Acute deep vein thrombosis (DVT) of axillary vein of right upper extremity (HCC) Post-op pain Other acute postoperative pain High output ileostomy (HCC) Other symptoms involving digestive system Partial small bowel obstruction (HCC) Unspecified intestinal obstruction Crohn's disease of both small and large intestine with abscess (HCC) Regional enteritis of small intestine with large intestine Small bowel stricture (HCC) Unspecified intestinal obstruction Post-op pain Other acute postoperative pain Difficult intravenous access Other specified conditions influencing health status Adjustment disorder with anxious mood Adjustment disorder with anxiety Acute postoperative anemia due to expected blood loss Acute deep vein thrombosis (DVT) of brachial vein of right upper extremity (HCC) Anticoagulation management encounter Encounter for therapeutic drug monitoring Disorders of fluid, electrolyte, and acid-base balance Electrolyte and fluid disorders not elsewhere classified On total parenteral nutrition (TPN) Other specified conditions influencing health status Leukocytosis, unspecified type Crohn's disease of small and large intestines with complication (HCC) [facility] Diagnosis Partial small bowel obstruction (HCC)- Primary Unspecified intestinal obstruction Crohn's disease of both small and large intestine with abscess (HCC) Regional enteritis of small intestine with large intestine On total parenteral nutrition (TPN) Other specified conditions influencing health status Abdominal fluid collection Other ascites Feeding difficulties Feeding difficulties and mismanagement Therapeutic drug monitoring Encounter for therapeutic drug monitoring Partial small bowel obstruction (HCC) Unspecified intestinal obstruction Crohn's disease of both small and large intestine with abscess (HCC) Regional enteritis of small intestine with large intestine Small bowel stricture (HCC) Unspecified intestinal obstruction Crohn's disease (HCC) Regional enteritis of unspecified site Acute deep vein thrombosis (DVT) of brachial vein of right upper extremity (HCC) Acute deep vein thrombosis (DVT) of axillary vein of right upper extremity (HCC) Post-op pain Other acute postoperative pain High output ileostomy (HCC) Other symptoms involving digestive system Partial small bowel obstruction (HCC) Unspecified intestinal obstruction Crohn's disease of both small and large intestine with abscess (HCC) Regional enteritis of small intestine with large intestine Small bowel stricture (HCC) Unspecified intestinal obstruction Post-op pain Other acute postoperative pain Difficult intravenous access Other specified conditions influencing health status Adjustment disorder with anxious mood Adjustment disorder with anxiety Acute postoperative anemia due to expected blood loss Acute deep vein thrombosis (DVT) of brachial vein of right upper extremity (HCC) Anticoagulation management encounter Encounter for therapeutic drug monitoring Disorders of fluid, electrolyte, and acid-base balance- Primary Electrolyte and fluid disorders not elsewhere classified On total parenteral nutrition (TPN) Other specified conditions influencing health status Leukocytosis, unspecified type Crohn's disease of small and large intestines with complication (HCC) [facility] Partial small bowel obstruction (HCC)- Primary Unspecified intestinal obstruction Crohn's disease of both small and large intestine with abscess (HCC) Regional enteritis of small intestine with large intestine On total parenteral nutrition (TPN) Other specified conditions influencing health status Abdominal fluid collection Other ascites Feeding difficulties Feeding difficulties and mismanagement Therapeutic drug monitoring Encounter for therapeutic drug monitoring Partial small bowel obstruction (HCC) Unspecified intestinal obstruction Crohn's disease of both small and large intestine with abscess (HCC) Regional enteritis of small intestine with large intestine Small bowel stricture (HCC) Unspecified intestinal obstruction Crohn's disease (HCC) Regional enteritis of unspecified site Acute deep vein thrombosis (DVT) of brachial vein of right upper extremity (HCC) Acute deep vein thrombosis (DVT) of axillary vein of right upper extremity (HCC) Post-op pain Other acute postoperative pain High output ileostomy (HCC) Other symptoms involving digestive system Partial small bowel obstruction (HCC) Unspecified intestinal obstruction Crohn's disease of both small and large intestine with abscess (HCC) Regional enteritis of small intestine with large intestine Small bowel stricture (HCC) Unspecified intestinal obstruction Post-op pain Other acute postoperative pain Difficult intravenous access Other specified conditions influencing health status Adjustment disorder with anxious mood Adjustment disorder with anxiety Acute postoperative anemia due to expected blood loss Acute deep vein thrombosis (DVT) of brachial vein of right upper extremity (HCC) Anticoagulation management encounter Encounter for therapeutic drug monitoring On total parenteral nutrition (TPN)- Primary Other specified conditions influencing health status Malnutrition of mild degree (HCC) Malnutrition of mild degree Therapeutic drug monitoring Encounter for therapeutic drug monitoring Crohn's disease with other complication, unspecified gastrointestinal tract location (HCC) Presence of ileostomy (HCC) Central venous catheter in place, permanent Other postprocedural status Crohn's disease of small and large intestines with complication (HCC) [facility] Diagnosis Partial small bowel obstruction (HCC)- Primary Unspecified intestinal obstruction Crohn's disease of both small and large intestine with abscess (HCC) Regional enteritis of small intestine with large intestine On total parenteral nutrition (TPN) Other specified conditions influencing health status Abdominal fluid collection Other ascites Feeding difficulties Feeding difficulties and mismanagement Therapeutic drug monitoring Encounter for therapeutic drug monitoring Partial small bowel obstruction (HCC) Unspecified intestinal obstruction Crohn's disease of both small and large intestine with abscess (HCC) Regional enteritis of small intestine with large intestine Small bowel stricture (HCC) Unspecified intestinal obstruction Crohn's disease (HCC) Regional enteritis of unspecified site Acute deep vein thrombosis (DVT) of brachial vein of right upper extremity (HCC) Acute deep vein thrombosis (DVT) of axillary vein of right upper extremity (HCC) Post-op pain Other acute postoperative pain High output ileostomy (HCC) Other symptoms involving digestive system Partial small bowel obstruction (HCC) Unspecified intestinal obstruction Crohn's disease of both small and large intestine with abscess (HCC) Regional enteritis of small intestine with large intestine Small bowel stricture (HCC) Unspecified intestinal obstruction Post-op pain Other acute postoperative pain Difficult intravenous access Other specified conditions influencing health status Adjustment disorder with anxious mood Adjustment disorder with anxiety Acute postoperative anemia due to expected blood loss Acute deep vein thrombosis (DVT) of brachial vein of right upper extremity (HCC) Anticoagulation management encounter Encounter for therapeutic drug monitoring Disorders of fluid, electrolyte, and acid-base balance Electrolyte and fluid disorders not elsewhere classified On total parenteral nutrition (TPN) Other specified conditions influencing health status Leukocytosis, unspecified type Crohn's disease of small and large intestines with complication (HCC) [facility] Diagnosis Partial small bowel obstruction (HCC)- Primary Unspecified intestinal obstruction Crohn's disease of both small and large intestine with abscess (HCC) Regional enteritis of small intestine with large intestine On total parenteral nutrition (TPN) Other specified conditions influencing health status Abdominal fluid collection Other ascites Feeding difficulties Feeding difficulties and mismanagement Therapeutic drug monitoring Encounter for therapeutic drug monitoring Partial small bowel obstruction (HCC) Unspecified intestinal obstruction Crohn's disease of both small and large intestine with abscess (HCC) Regional enteritis of small intestine with large intestine Small bowel stricture (HCC) Unspecified intestinal obstruction Crohn's disease (HCC) Regional enteritis of unspecified site Acute deep vein thrombosis (DVT) of brachial vein of right upper extremity (HCC) Acute deep vein thrombosis (DVT) of axillary vein of right upper extremity (HCC) Post-op pain Other acute postoperative pain High output ileostomy (HCC) Other symptoms involving digestive system Partial small bowel obstruction (HCC) Unspecified intestinal obstruction Crohn's disease of both small and large intestine with abscess (HCC) Regional enteritis of small intestine with large intestine Small bowel stricture (HCC) Unspecified intestinal obstruction Post-op pain Other acute postoperative pain Difficult intravenous access Other specified conditions influencing health status Adjustment disorder with anxious mood Adjustment disorder with anxiety Acute postoperative anemia due to expected blood loss Acute deep vein thrombosis (DVT) of brachial vein of right upper extremity (HCC) Anticoagulation management encounter Encounter for therapeutic drug monitoring On total parenteral nutrition (TPN)- Primary Other specified conditions influencing health status Vitamin deficiency Unspecified vitamin deficiency Crohn's disease of small intestine with other complication (HCC) Crohn's disease of small and large intestines with complication (HCC) [facility] Diagnosis Partial small bowel obstruction (HCC)- Primary Unspecified intestinal obstruction Crohn's disease of both small and large intestine with abscess (HCC) Regional enteritis of small intestine with large intestine On total parenteral nutrition (TPN) Other specified conditions influencing health status Abdominal fluid collection Other ascites Feeding difficulties Feeding difficulties and mismanagement Therapeutic drug monitoring Encounter for therapeutic drug monitoring Partial small bowel obstruction (HCC) Unspecified intestinal obstruction Crohn's disease of both small and large intestine with abscess (HCC) Regional enteritis of small intestine with large intestine Small bowel stricture (HCC) Unspecified intestinal obstruction Crohn's disease (HCC) Regional enteritis of unspecified site Acute deep vein thrombosis (DVT) of brachial vein of right upper extremity (HCC) Acute deep vein thrombosis (DVT) of axillary vein of right upper extremity (HCC) Post-op pain Other acute postoperative pain High output ileostomy (HCC) Other symptoms involving digestive system Partial small bowel obstruction (HCC) Unspecified intestinal obstruction Crohn's disease of both small and large intestine with abscess (HCC) Regional enteritis of small intestine with large intestine Small bowel stricture (HCC) Unspecified intestinal obstruction Post-op pain Other acute postoperative pain Difficult intravenous access Other specified conditions influencing health status Adjustment disorder with anxious mood Adjustment disorder with anxiety Acute postoperative anemia due to expected blood loss Acute deep vein thrombosis (DVT) of brachial vein of right upper extremity (HCC) Anticoagulation management encounter Encounter for therapeutic drug monitoring Crohn's disease of small and large intestines with complication (HCC)- Primary Disorders of fluid, electrolyte, and acid-base balance Electrolyte and fluid disorders not elsewhere classified On total parenteral nutrition (TPN) Other specified conditions influencing health status Leukocytosis, unspecified type Crohn's disease of small intestine with other complication (HCC) Crohn's disease of small and large intestines with complication (HCC) [facility] Diagnosis Partial small bowel obstruction (HCC)- Primary Unspecified intestinal obstruction Crohn's disease of both small and large intestine with abscess (HCC) Regional enteritis of small intestine with large intestine On total parenteral nutrition (TPN) Other specified conditions influencing health status Abdominal fluid collection Other ascites Feeding difficulties Feeding difficulties and mismanagement Therapeutic drug monitoring Encounter for therapeutic drug monitoring Partial small bowel obstruction (HCC) Unspecified intestinal obstruction Crohn's disease of both small and large intestine with abscess (HCC) Regional enteritis of small intestine with large intestine Small bowel stricture (HCC) Unspecified intestinal obstruction Crohn's disease (HCC) Regional enteritis of unspecified site Acute deep vein thrombosis (DVT) of brachial vein of right upper extremity (HCC) Acute deep vein thrombosis (DVT) of axillary vein of right upper extremity (HCC) Post-op pain Other acute postoperative pain High output ileostomy (HCC) Other symptoms involving digestive system Partial small bowel obstruction (HCC) Unspecified intestinal obstruction Crohn's disease of both small and large intestine with abscess (HCC) Regional enteritis of small intestine with large intestine Small bowel stricture (HCC) Unspecified intestinal obstruction Post-op pain Other acute postoperative pain Difficult intravenous access Other specified conditions influencing health status Adjustment disorder with anxious mood Adjustment disorder with anxiety Acute postoperative anemia due to expected blood loss Acute deep vein thrombosis (DVT) of brachial vein of right upper extremity (HCC) Anticoagulation management encounter Encounter for therapeutic drug monitoring Crohn's disease of small intestine with intestinal obstruction (HCC) [K50.012]- Primary Regional enteritis of small intestine 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] Hypotension due to hypovolemia [E86.1] Crohn's disease of small and large intestines with complication (HCC) [facility] Diagnosis Partial small bowel obstruction (HCC)- Primary Unspecified intestinal obstruction Crohn's disease of both small and large intestine with abscess (HCC) Regional enteritis of small intestine with large intestine On total parenteral nutrition (TPN) Other specified conditions influencing health status Abdominal fluid collection Other ascites Feeding difficulties Feeding difficulties and mismanagement Therapeutic drug monitoring Encounter for therapeutic drug monitoring Partial small bowel obstruction (HCC) Unspecified intestinal obstruction Crohn's disease of both small and large intestine with abscess (HCC) Regional enteritis of small intestine with large intestine Small bowel stricture (HCC) Unspecified intestinal obstruction Crohn's disease (HCC) Regional enteritis of unspecified site Acute deep vein thrombosis (DVT) of brachial vein of right upper extremity (HCC) Acute deep vein thrombosis (DVT) of axillary vein of right upper extremity (HCC) Post-op pain Other acute postoperative pain High output ileostomy (HCC) Other symptoms involving digestive system Partial small bowel obstruction (HCC) Unspecified intestinal obstruction Crohn's disease of both small and large intestine with abscess (HCC) Regional enteritis of small intestine with large intestine Small bowel stricture (HCC) Unspecified intestinal obstruction Post-op pain Other acute postoperative pain Difficult intravenous access Other specified conditions influencing health status Adjustment disorder with anxious mood Adjustment disorder with anxiety Acute postoperative anemia due to expected blood loss Acute deep vein thrombosis (DVT) of brachial vein of right upper extremity (HCC) Anticoagulation management encounter Encounter for therapeutic drug monitoring Crohn's disease of small and large intestines with complication (HCC) Disorders of fluid, electrolyte, and acid-base balance Electrolyte and fluid disorders not elsewhere classified On total parenteral nutrition (TPN) Other specified conditions influencing health status Crohn's disease of small and large intestines with complication (HCC) [facility] Diagnosis Partial small bowel obstruction (HCC)- Primary Unspecified intestinal obstruction Crohn's disease of both small and large intestine with abscess (HCC) Regional enteritis of small intestine with large intestine On total parenteral nutrition (TPN) Other specified conditions influencing health status Abdominal fluid collection Other ascites Feeding difficulties Feeding difficulties and mismanagement Therapeutic drug monitoring Encounter for therapeutic drug monitoring Partial small bowel obstruction (HCC) Unspecified intestinal obstruction Crohn's disease of both small and large intestine with abscess (HCC) Regional enteritis of small intestine with large intestine Small bowel stricture (HCC) Unspecified intestinal obstruction Crohn's disease (HCC) Regional enteritis of unspecified site Acute deep vein thrombosis (DVT) of brachial vein of right upper extremity (HCC) Acute deep vein thrombosis (DVT) of axillary vein of right upper extremity (HCC) Post-op pain Other acute postoperative pain High output ileostomy (HCC) Other symptoms involving digestive system Partial small bowel obstruction (HCC) Unspecified intestinal obstruction Crohn's disease of both small and large intestine with abscess (HCC) Regional enteritis of small intestine with large intestine Small bowel stricture (HCC) Unspecified intestinal obstruction Post-op pain Other acute postoperative pain Difficult intravenous access Other specified conditions influencing health status Adjustment disorder with anxious mood Adjustment disorder with anxiety Acute postoperative anemia due to expected blood loss Acute deep vein thrombosis (DVT) of brachial vein of right upper extremity (HCC) Anticoagulation management encounter Encounter for therapeutic drug monitoring Crohn's disease of small and large intestines with complication (HCC) [facility] Diagnosis Partial small bowel obstruction (HCC)- Primary Unspecified intestinal obstruction Crohn's disease of both small and large intestine with abscess (HCC) Regional enteritis of small intestine with large intestine On total parenteral nutrition (TPN) Other specified conditions influencing health status Abdominal fluid collection Other ascites Feeding difficulties Feeding difficulties and mismanagement Therapeutic drug monitoring Encounter for therapeutic drug monitoring Partial small bowel obstruction (HCC) Unspecified intestinal obstruction Crohn's disease of both small and large intestine with abscess (HCC) Regional enteritis of small intestine with large intestine Small bowel stricture (HCC) Unspecified intestinal obstruction Crohn's disease (HCC) Regional enteritis of unspecified site Acute deep vein thrombosis (DVT) of brachial vein of right upper extremity (HCC) Acute deep vein thrombosis (DVT) of axillary vein of right upper extremity (HCC) Post-op pain Other acute postoperative pain High output ileostomy (HCC) Other symptoms involving digestive system Partial small bowel obstruction (HCC) Unspecified intestinal obstruction Crohn's disease of both small and large intestine with abscess (HCC) Regional enteritis of small intestine with large intestine Small bowel stricture (HCC) Unspecified intestinal obstruction Difficult intravenous access Other specified conditions influencing health status Acute postoperative anemia due to expected blood loss Acute deep vein thrombosis (DVT) of brachial vein of right upper extremity (HCC) Anticoagulation management encounter Encounter for therapeutic drug monitoring Attention to ileostomy (HCC)- Primary Attention to ileostomy Crohn's disease of small and large intestines with complication (HCC) Postoperative pain Other acute postoperative pain Acute postoperative pain Other acute postoperative pain Acute postoperative pain Other acute postoperative pain On total parenteral nutrition (TPN) Other specified conditions influencing health status Nicotine use disorder, F17.2 Tobacco use disorder Mood disorder Unspecified episodic mood disorder Crohn's disease of small and large intestines with complication (HCC) Central venous catheter in place Adjustment disorder with anxious mood Adjustment disorder with anxiety History of DVT (deep vein thrombosis) Personal history of venous thrombosis and embolism Malnutrition of moderate degree (HCC) Malnutrition of moderate degree Ileus following gastrointestinal surgery (HCC) Other digestive system complications Crohn's disease of both small and large intestine with abscess (HCC)- Primary Regional enteritis of small intestine with large intestine [facility] Diagnosis Partial small bowel obstruction (HCC)- Primary Unspecified intestinal obstruction Crohn's disease of both small and large intestine with abscess (HCC) Regional enteritis of small intestine with large intestine On total parenteral nutrition (TPN) Other specified conditions influencing health status Abdominal fluid collection Other ascites Feeding difficulties Feeding difficulties and mismanagement Therapeutic drug monitoring Encounter for therapeutic drug monitoring Partial small bowel obstruction (HCC) Unspecified intestinal obstruction Crohn's disease of both small and large intestine with abscess (HCC) Regional enteritis of small intestine with large intestine Small bowel stricture (HCC) Unspecified intestinal obstruction Crohn's disease (HCC) Regional enteritis of unspecified site Acute deep vein thrombosis (DVT) of brachial vein of right upper extremity (HCC) Acute deep vein thrombosis (DVT) of axillary vein of right upper extremity (HCC) Post-op pain Other acute postoperative pain High output ileostomy (HCC) Other symptoms involving digestive system Partial small bowel obstruction (HCC) Unspecified intestinal obstruction Crohn's disease of both small and large intestine with abscess (HCC) Regional enteritis of small intestine with large intestine Small bowel stricture (HCC) Unspecified intestinal obstruction Difficult intravenous access Other specified conditions influencing health status Acute postoperative anemia due to expected blood loss Acute deep vein thrombosis (DVT) of brachial vein of right upper extremity (HCC) Anticoagulation management encounter Encounter for therapeutic drug monitoring Attention to ileostomy (HCC)- Primary Attention to ileostomy Crohn's disease of small and large intestines with complication (HCC) Postoperative pain Other acute postoperative pain Acute postoperative pain Other acute postoperative pain Acute postoperative pain Other acute postoperative pain On total parenteral nutrition (TPN) Other specified conditions influencing health status Nicotine use disorder, F17.2 Tobacco use disorder Mood disorder Unspecified episodic mood disorder Crohn's disease of small and large intestines with complication (HCC) Central venous catheter in place Adjustment disorder with anxious mood Adjustment disorder with anxiety History of DVT (deep vein thrombosis) Personal history of venous thrombosis and embolism Malnutrition of moderate degree (HCC) Malnutrition of moderate degree Ileus following gastrointestinal surgery (HCC) Other digestive system complications Crohn's disease of small and large intestines with complication (HCC)- Primary Disorders of fluid, electrolyte, and acid-base balance Electrolyte and fluid disorders not elsewhere classified On total parenteral nutrition (TPN) Other specified conditions influencing health status Leukocytosis, unspecified type [facility] Diagnosis Partial small bowel obstruction (HCC)- Primary Unspecified intestinal obstruction Crohn's disease of both small and large intestine with abscess (HCC) Regional enteritis of small intestine with large intestine On total parenteral nutrition (TPN) Other specified conditions influencing health status Abdominal fluid collection Other ascites Feeding difficulties Feeding difficulties and mismanagement Therapeutic drug monitoring Encounter for therapeutic drug monitoring Partial small bowel obstruction (HCC) Unspecified intestinal obstruction Crohn's disease of both small and large intestine with abscess (HCC) Regional enteritis of small intestine with large intestine Small bowel stricture (HCC) Unspecified intestinal obstruction Crohn's disease (HCC) Regional enteritis of unspecified site Acute deep vein thrombosis (DVT) of brachial vein of right upper extremity (HCC) Acute deep vein thrombosis (DVT) of axillary vein of right upper extremity (HCC) Post-op pain Other acute postoperative pain High output ileostomy (HCC) Other symptoms involving digestive system Partial small bowel obstruction (HCC) Unspecified intestinal obstruction Crohn's disease of both small and large intestine with abscess (HCC) Regional enteritis of small intestine with large intestine Small bowel stricture (HCC) Unspecified intestinal obstruction Difficult intravenous access Other specified conditions influencing health status Acute postoperative anemia due to expected blood loss Acute deep vein thrombosis (DVT) of brachial vein of right upper extremity (HCC) Anticoagulation management encounter Encounter for therapeutic drug monitoring Attention to ileostomy (HCC)- Primary Attention to ileostomy Crohn's disease of small and large intestines with complication (HCC) Postoperative pain Other acute postoperative pain Acute postoperative pain Other acute postoperative pain Acute postoperative pain Other acute postoperative pain On total parenteral nutrition (TPN) Other specified conditions influencing health status Nicotine use disorder, F17.2 Tobacco use disorder Mood disorder Unspecified episodic mood disorder Crohn's disease of small and large intestines with complication (HCC) Central venous catheter in place Adjustment disorder with anxious mood Adjustment disorder with anxiety History of DVT (deep vein thrombosis) Personal history of venous thrombosis and embolism Malnutrition of moderate degree (HCC) Malnutrition of moderate degree Ileus following gastrointestinal surgery (HCC) Other digestive system complications Encounter for other specified surgical aftercare Postoperative pain Other acute postoperative pain Diarrhea, unspecified type Constipation, unspecified constipation type [facility] Diagnosis Partial small bowel obstruction (HCC)- Primary Unspecified intestinal obstruction Crohn's disease of both small and large intestine with abscess (HCC) Regional enteritis of small intestine with large intestine On total parenteral nutrition (TPN) Other specified conditions influencing health status Abdominal fluid collection Other ascites Feeding difficulties Feeding difficulties and mismanagement Therapeutic drug monitoring Encounter for therapeutic drug monitoring Partial small bowel obstruction (HCC) Unspecified intestinal obstruction Crohn's disease of both small and large intestine with abscess (HCC) Regional enteritis of small intestine with large intestine Small bowel stricture (HCC) Unspecified intestinal obstruction Crohn's disease (HCC) Regional enteritis of unspecified site Acute deep vein thrombosis (DVT) of brachial vein of right upper extremity (HCC) Acute deep vein thrombosis (DVT) of axillary vein of right upper extremity (HCC) Post-op pain Other acute postoperative pain High output ileostomy (HCC) Other symptoms involving digestive system Partial small bowel obstruction (HCC) Unspecified intestinal obstruction Crohn's disease of both small and large intestine with abscess (HCC) Regional enteritis of small intestine with large intestine Small bowel stricture (HCC) Unspecified intestinal obstruction Difficult intravenous access Other specified conditions influencing health status Acute postoperative anemia due to expected blood loss Acute deep vein thrombosis (DVT) of brachial vein of right upper extremity (HCC) Anticoagulation management encounter Encounter for therapeutic drug monitoring Attention to ileostomy (HCC)- Primary Attention to ileostomy Crohn's disease of small and large intestines with complication (HCC) Postoperative pain Other acute postoperative pain Acute postoperative pain Other acute postoperative pain Acute postoperative pain Other acute postoperative pain On total parenteral nutrition (TPN) Other specified conditions influencing health status Nicotine use disorder, F17.2 Tobacco use disorder Mood disorder Unspecified episodic mood disorder Crohn's disease of small and large intestines with complication (HCC) Central venous catheter in place Adjustment disorder with anxious mood Adjustment disorder with anxiety History of DVT (deep vein thrombosis) Personal history of venous thrombosis and embolism Malnutrition of moderate degree (HCC) Malnutrition of moderate degree Ileus following gastrointestinal surgery (HCC) Other digestive system complications Anticoagulation management encounter- Primary Encounter for therapeutic drug monitoring [facility] Diagnosis Partial small bowel obstruction (HCC)- Primary Unspecified intestinal obstruction Crohn's disease of both small and large intestine with abscess (HCC) Regional enteritis of small intestine with large intestine On total parenteral nutrition (TPN) Other specified conditions influencing health status Abdominal fluid collection Other ascites Feeding difficulties Feeding difficulties and mismanagement Therapeutic drug monitoring Encounter for therapeutic drug monitoring Partial small bowel obstruction (HCC) Unspecified intestinal obstruction Crohn's disease of both small and large intestine with abscess (HCC) Regional enteritis of small intestine with large intestine Small bowel stricture (HCC) Unspecified intestinal obstruction Crohn's disease (HCC) Regional enteritis of unspecified site Acute deep vein thrombosis (DVT) of brachial vein of right upper extremity (HCC) Acute deep vein thrombosis (DVT) of axillary vein of right upper extremity (HCC) Post-op pain Other acute postoperative pain High output ileostomy (HCC) Other symptoms involving digestive system Partial small bowel obstruction (HCC) Unspecified intestinal obstruction Crohn's disease of both small and large intestine with abscess (HCC) Regional enteritis of small intestine with large intestine Small bowel stricture (HCC) Unspecified intestinal obstruction Difficult intravenous access Other specified conditions influencing health status Acute postoperative anemia due to expected blood loss Acute deep vein thrombosis (DVT) of brachial vein of right upper extremity (HCC) Anticoagulation management encounter Encounter for therapeutic drug monitoring Attention to ileostomy (HCC)- Primary Attention to ileostomy Crohn's disease of small and large intestines with complication (HCC) Postoperative pain Other acute postoperative pain Acute postoperative pain Other acute postoperative pain Acute postoperative pain Other acute postoperative pain On total parenteral nutrition (TPN) Other specified conditions influencing health status Nicotine use disorder, F17.2 Tobacco use disorder Mood disorder Unspecified episodic mood disorder Crohn's disease of small and large intestines with complication (HCC) Central venous catheter in place Adjustment disorder with anxious mood Adjustment disorder with anxiety History of DVT (deep vein thrombosis) Personal history of venous thrombosis and embolism Malnutrition of moderate degree (HCC) Malnutrition of moderate degree Ileus following gastrointestinal surgery (HCC) Other digestive system complications Disorders of fluid, electrolyte, and acid-base balance Electrolyte and fluid disorders not elsewhere classified On total parenteral nutrition (TPN) Other specified conditions influencing health status Leukocytosis, unspecified type [facility] Diagnosis Partial small bowel obstruction (HCC)- Primary Unspecified intestinal obstruction Crohn's disease of both small and large intestine with abscess (HCC) Regional enteritis of small intestine with large intestine On total parenteral nutrition (TPN) Other specified conditions influencing health status Abdominal fluid collection Other ascites Feeding difficulties Feeding difficulties and mismanagement Therapeutic drug monitoring Encounter for therapeutic drug monitoring Partial small bowel obstruction (HCC) Unspecified intestinal obstruction Crohn's disease of both small and large intestine with abscess (HCC) Regional enteritis of small intestine with large intestine Small bowel stricture (HCC) Unspecified intestinal obstruction Crohn's disease (HCC) Regional enteritis of unspecified site Acute deep vein thrombosis (DVT) of brachial vein of right upper extremity (HCC) Acute deep vein thrombosis (DVT) of axillary vein of right upper extremity (HCC) Post-op pain Other acute postoperative pain High output ileostomy (HCC) Other symptoms involving digestive system Partial small bowel obstruction (HCC) Unspecified intestinal obstruction Crohn's disease of both small and large intestine with abscess (HCC) Regional enteritis of small intestine with large intestine Small bowel stricture (HCC) Unspecified intestinal obstruction Difficult intravenous access Other specified conditions influencing health status Acute postoperative anemia due to expected blood loss Acute deep vein thrombosis (DVT) of brachial vein of right upper extremity (HCC) Anticoagulation management encounter Encounter for therapeutic drug monitoring Attention to ileostomy (HCC)- Primary Attention to ileostomy Crohn's disease of small and large intestines with complication (HCC) Postoperative pain Other acute postoperative pain Acute postoperative pain Other acute postoperative pain Acute postoperative pain Other acute postoperative pain On total parenteral nutrition (TPN) Other specified conditions influencing health status Nicotine use disorder, F17.2 Tobacco use disorder Mood disorder Unspecified episodic mood disorder Crohn's disease of small and large intestines with complication (HCC) Central venous catheter in place Adjustment disorder with anxious mood Adjustment disorder with anxiety History of DVT (deep vein thrombosis) Personal history of venous thrombosis and embolism Malnutrition of moderate degree (HCC) Malnutrition of moderate degree Ileus following gastrointestinal surgery (HCC) Other digestive system complications Crohn's disease with complication, unspecified gastrointestinal tract location (HCC)- Primary [facility] Diagnosis Partial small bowel obstruction (HCC)- Primary Unspecified intestinal obstruction Crohn's disease of both small and large intestine with abscess (HCC) Regional enteritis of small intestine with large intestine On total parenteral nutrition (TPN) Other specified conditions influencing health status Abdominal fluid collection Other ascites Feeding difficulties Feeding difficulties and mismanagement Therapeutic drug monitoring Encounter for therapeutic drug monitoring Partial small bowel obstruction (HCC) Unspecified intestinal obstruction Crohn's disease of both small and large intestine with abscess (HCC) Regional enteritis of small intestine with large intestine Small bowel stricture (HCC) Unspecified intestinal obstruction Crohn's disease (HCC) Regional enteritis of unspecified site Acute deep vein thrombosis (DVT) of brachial vein of right upper extremity (HCC) Acute deep vein thrombosis (DVT) of axillary vein of right upper extremity (HCC) Post-op pain Other acute postoperative pain High output ileostomy (HCC) Other symptoms involving digestive system Partial small bowel obstruction (HCC) Unspecified intestinal obstruction Crohn's disease of both small and large intestine with abscess (HCC) Regional enteritis of small intestine with large intestine Small bowel stricture (HCC) Unspecified intestinal obstruction Difficult intravenous access Other specified conditions influencing health status Acute postoperative anemia due to expected blood loss Acute deep vein thrombosis (DVT) of brachial vein of right upper extremity (HCC) Anticoagulation management encounter Encounter for therapeutic drug monitoring Attention to ileostomy (HCC)- Primary Attention to ileostomy Crohn's disease of small and large intestines with complication (HCC) Postoperative pain Other acute postoperative pain Acute postoperative pain Other acute postoperative pain Acute postoperative pain Other acute postoperative pain On total parenteral nutrition (TPN) Other specified conditions influencing health status Nicotine use disorder, F17.2 Tobacco use disorder Mood disorder Unspecified episodic mood disorder Crohn's disease of small and large intestines with complication (HCC) Central venous catheter in place Adjustment disorder with anxious mood Adjustment disorder with anxiety History of DVT (deep vein thrombosis) Personal history of venous thrombosis and embolism Malnutrition of moderate degree (HCC) Malnutrition of moderate degree Ileus following gastrointestinal surgery (HCC) Other digestive system complications Diarrhea, unspecified type- Primary [facility] Diagnosis Partial small bowel obstruction (HCC)- Primary Unspecified intestinal obstruction Crohn's disease of both small and large intestine with abscess (HCC) Regional enteritis of small intestine with large intestine On total parenteral nutrition (TPN) Other specified conditions influencing health status Abdominal fluid collection Other ascites Feeding difficulties Feeding difficulties and mismanagement Therapeutic drug monitoring Encounter for therapeutic drug monitoring Partial small bowel obstruction (HCC) Unspecified intestinal obstruction Crohn's disease of both small and large intestine with abscess (HCC) Regional enteritis of small intestine with large intestine Small bowel stricture (HCC) Unspecified intestinal obstruction Crohn's disease (HCC) Regional enteritis of unspecified site Acute deep vein thrombosis (DVT) of brachial vein of right upper extremity (HCC) Acute deep vein thrombosis (DVT) of axillary vein of right upper extremity (HCC) Post-op pain Other acute postoperative pain High output ileostomy (HCC) Other symptoms involving digestive system Partial small bowel obstruction (HCC) Unspecified intestinal obstruction Crohn's disease of both small and large intestine with abscess (HCC) Regional enteritis of small intestine with large intestine Small bowel stricture (HCC) Unspecified intestinal obstruction Difficult intravenous access Other specified conditions influencing health status Acute postoperative anemia due to expected blood loss Acute deep vein thrombosis (DVT) of brachial vein of right upper extremity (HCC) Anticoagulation management encounter Encounter for therapeutic drug monitoring Attention to ileostomy (HCC)- Primary Attention to ileostomy Crohn's disease of small and large intestines with complication (HCC) Postoperative pain Other acute postoperative pain Acute postoperative pain Other acute postoperative pain Acute postoperative pain Other acute postoperative pain On total parenteral nutrition (TPN) Other specified conditions influencing health status Nicotine use disorder, F17.2 Tobacco use disorder Mood disorder Unspecified episodic mood disorder Crohn's disease of small and large intestines with complication (HCC) Central venous catheter in place Adjustment disorder with anxious mood Adjustment disorder with anxiety History of DVT (deep vein thrombosis) Personal history of venous thrombosis and embolism Malnutrition of moderate degree (HCC) Malnutrition of moderate degree Ileus following gastrointestinal surgery (HCC) Other digestive system complications Iron deficiency anemia, unspecified iron deficiency anemia type- Primary Crohn's disease with complication, unspecified gastrointestinal tract location (HCC) Other fatigue [facility] Diagnosis Partial small bowel obstruction (HCC)- Primary Unspecified intestinal obstruction Crohn's disease of both small and large intestine with abscess (HCC) Regional enteritis of small intestine with large intestine On total parenteral nutrition (TPN) Other specified conditions influencing health status Abdominal fluid collection Other ascites Feeding difficulties Feeding difficulties and mismanagement Therapeutic drug monitoring Encounter for therapeutic drug monitoring Partial small bowel obstruction (HCC) Unspecified intestinal obstruction Crohn's disease of both small and large intestine with abscess (HCC) Regional enteritis of small intestine with large intestine Small bowel stricture (HCC) Unspecified intestinal obstruction Crohn's disease (HCC) Regional enteritis of unspecified site Acute deep vein thrombosis (DVT) of brachial vein of right upper extremity (HCC) Acute deep vein thrombosis (DVT) of axillary vein of right upper extremity (HCC) Post-op pain Other acute postoperative pain High output ileostomy (HCC) Other symptoms involving digestive system Partial small bowel obstruction (HCC) Unspecified intestinal obstruction Crohn's disease of both small and large intestine with abscess (HCC) Regional enteritis of small intestine with large intestine Small bowel stricture (HCC) Unspecified intestinal obstruction Difficult intravenous access Other specified conditions influencing health status Acute postoperative anemia due to expected blood loss Acute deep vein thrombosis (DVT) of brachial vein of right upper extremity (HCC) Anticoagulation management encounter Encounter for therapeutic drug monitoring Attention to ileostomy (HCC)- Primary Attention to ileostomy Crohn's disease of small and large intestines with complication (HCC) Postoperative pain Other acute postoperative pain Acute postoperative pain Other acute postoperative pain Acute postoperative pain Other acute postoperative pain On total parenteral nutrition (TPN) Other specified conditions influencing health status Nicotine use disorder, F17.2 Tobacco use disorder Mood disorder Unspecified episodic mood disorder Crohn's disease of small and large intestines with complication (HCC) Central venous catheter in place Adjustment disorder with anxious mood Adjustment disorder with anxiety History of DVT (deep vein thrombosis) Personal history of venous thrombosis and embolism Malnutrition of moderate degree (HCC) Malnutrition of moderate degree Ileus following gastrointestinal surgery (HCC) Other digestive system complications Crohn's disease of both small and large intestine with abscess (HCC)- Primary Regional enteritis of small intestine with large intestine Nausea Nausea alone Nausea and vomiting, unspecified vomiting type Gastro-esophageal reflux disease without esophagitis Esophageal reflux [facility] Author Jennifer Brody [facility] December 31, 2022 1:56pm Note Date/Time December 31, 2022 1:56 pm [facility] [address] [place] [address] Gastroenterology H&P Signed Patient: Francine Hobson MR#: [id number] : 1985 Acct:[id number] Age/Sex: 37 / F Adm Date: 3 Loc: Room: Type: [facility] Attending Dr: Jennifer Brody MD Copies to: DO Jennifer Maloney MD~ Date of Service: 12/31/2022 HISTORY & PHYSICAL: Patient's history with special attention to the cardiovascular, pulmonary systems and the current problem was reviewed with the patient immediately prior to the procedure. Present medications and doses reviewed in the EMR. Allergies and pertinent laboratory tests were also reviewedat this time in the EMR. The physical examination, as below, was then performed. Indication, assessment and HPI: 37-year-old female with history of Crohn's disease here for colonoscopy to evaluate disease activity PHYSICAL EXAMINATION Mouth and Pharynx : [moist mucus membranes, normal dentition] Cardiac: [regular rate, regular rhythm] Pulmonary: [clear to auscultation bilaterally, no wheezing] Neurological: [alert and oriented x3, no focal deficits noted] Abdomen: [Abdomen soft, non-tender] REVIEW OF SYSTEMS Constitutional: Denies malaise, fevers Cardiovascular: Denies chest pain, palpitations Respiratory: Denies shortness of breath, wheezing Gastrointestinal: Per HPI Genitourinary: Denies dysuria, polyuria Musculoskeletal: Denies joint swelling, joint stiffness Neurological: Denies numbness, tingling Integumentary: Denies rashes, skin lesions Endocrine: Denies fatigue, weight loss Written informed consent obtained from the [patient]. Risks (including but not limited to perforation, infection, bloating, bleeding, need for emergent surgery and loss of life), benefits and alternatives explained and questions answered. The [patient] verbalized understanding. Based on history patient is an appropriate candidate for the procedure. Jennifer Brody M.D. Documented By: Jennifer Brody MD 12/31/22 1363 Signed By: <Electronically signed by Jennifer Brody MD> 12/31/22 1813 [facility] Work Phone: History general Narrative - Reported* Type Description Date Medical History Crohn's disease Medical History depression Medical History anxiety Surgical History tonsils Surgical History wisdom teeth Surgical History c section x 1 Surgical History bowel resection Surgical History nose sx Hospitalization History see above Hospitalization History child Hospitalization History Lana--partial small jose r wel obstruction 11/24- [facility] Other [facility]psuv general Narrative - [employer] Other Hislvsg general Narrative - [employer] 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 In some cases, this may be from a few hours to a day. Walking may help relieve the discomfort. - If you have polyp(s) removed you may note some minor bloody discharge after your first bowel movements. - You should begin to recover from anesthesia within 1 hour of the procedure, however may feel groggy for the next 24 hours. DO's AND DON'Ts: - Call your doctor right away if you have a hard abdomen, severe pain, are passing lots of bright red blood or clots. - Call your doctor if you develop any rashes, hives or difficulty breathing. - Let your doctor know if you have not had a bowel movement by 3 days after your procedure. - If you take 81 mg aspirin for your heart it is safe to resume this medication. - If you take other blood thinner medications your doctor will instruct you when these can safely be resumed. - Do NOT drive for 24 hours. - Do NOT operate machinery such as power tools, lawn mowers, snow blowers, sewing machines, etc. for 24 hours. - Avoid alcoholic beverages and drugs for allergies, nerves, or sleep. - Do NOT stay alone. Do NOT leave your child unattended. - Do NOT make important personal or business decisions or sign any legal documents. - Eat solid foods and drink liquids in smaller amounts than usual until normal appetite returns. If you should experience an upset stomach, liquids high in sugar content (soda, Arnulfo-Aid, non-acid juices) are recommended. - You can resume normal activities tomorrow. FOLLOW UP & RECOMMENDATIONS: -Notify the doctor if you have any problems. -Follow up in the office -Office number [phone]. [facility] Work Phone: Hospital Discharge instructions Additional Instructions Orthopedic Surgery discharge Instructions Maintain your postoperative dressing for at least 5 days after surgery. The dressing is waterproof so you may shower over this as soon as you wish. I would recommend icing for the first 48 hours after surgery to help decrease swelling. You are weightbearing as tolerated and range of motion as tolerated to the shoulder and arm. Take medications as prescribed. You may take Motrin or Tylenol [id number] if you wish. Follow-up as scheduled for recheck Dr. Arthur Mcclain [facility] [address] [place] [address] [facility] Work Phone: Progress note No data available for this section [facility] Reason for visit Narrative* Diagnostic Procedure Only (Routine) - Closed Specialty Diagnoses / Procedures Referred By Contac lashawn Referred To Contact XR IMAGING Diagnoses Crohn's disease of small and large intestines with complication (HCC) Procedures DXA-AXIAL SKELETON DXA BONE DENSITY STUDY 1/> SITES AXIAL Aracely Jay PA-C [address] [place] [address] Phone: tel: fax: [place] [address] Referral ID Status Reason Start Date Expiration Date V isits Requested Visits Authorized [id number] Closed Auto-Generate d Referral 09/28/2024 10/28/2025 1 1 [facility] for visit Narrative* [place] Prior Authorization (Routine) - Authorized Specialty Diagnoses / Procedures Referred By Contac t Referred To Contact Diagnoses Crohn's disease of small and large intestines with complication (HCC) Procedures INJECTION, RISANKIZUMAB-RZAA, INTRAVENOUS, 1 MG Armand Rios MD, PhD [address] [place] [address] Phone: tel: fax: Armand Rios MD, PhD [address] [place] [address] Phone: tel: fax: Referral ID Status Reason Start Date Expiration Date Visits Requested Visits Authorized [id number] Authorized Clearance Not Met - Admin/Chairm an/Director Advise to Postpone/Res chedule or Not Proceed 11/09/2024 02/09/2025 3 3 [facility] [place] Prior Authorization (Routine) - Authorized Specialty Diagnoses / Procedures Referred By Yanet hardin Referred To Contact Diagnoses Crohn's disease of small and large intestines with complication (HCC) Procedures INJECTION, RISANKIZUMAB-RZAA, INTRAVENOUS, 1 MG Armand Rios MD, PhD [address] [place] [address] Phone: tel: fax: Armand Rios MD, PhD [address] [place] [address] Phone: tel: fax: Referral ID Status Reason Start Date Expiration Date Visits Requested Visits Authorized [id number] Authorized Clearance Not Met - Admin/Chairm an/Director Advise to Postpone/Res chedule or Not Proceed 11/09/2024 04/03/2025 3 3 [facility] Discharge Instructions * Discharge Instr - Care Coordination - Caroline Allen RN - 05/01/2018 1:57 PM EDT Please see below for help establishing with a PCP: [facility] Referral Service: Call (use option 1) Or visit our [facility] web sites: [email or web address] ?? [facility] Address: [address] [place] [address] [address] Wednesday-Wednesday: 8am-4:30pm * Discharge Instr - IP PHARMACY - Demian Oliveira, [employer] Shoe Examiner - 04/30/2018 10:09 AM EDT There may be medications on your list that you were prescribed or previously taking but you said you are no longer taking. These medications may still be important for your health. Please discuss these with the person who prescribed the medication(s) to you. in this encounter* Instructions* Juan Sahni MD - 06/04/2020 Crohn's Disease: Care Instructions Your Care Instructions Crohn's disease is a lifelong inflammatory bowel disease. Parts of the digestive tract get swollen and irritated and may develop sores called ulcers. It usually occurs in the last part of the small intestine and the first part of the large intestine. The main symptoms of Crohn's disease are belly pain, diarrhea, fever, and weight loss. It sometimescauses problems with joints, eyes, or skin. Symptoms may be mild or severe. The disease can also gointo remission (not be active). Bad attacks are often treated in the hospital with medicines and liquids through a tube in your vein (IV). Talk with your doctor about the best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 USER 3. Cough COUGH XR Chest AP/PA and LAT ECG 12 Lead ipratropium-albuterol (DUO-NEB) 0.5-2.5 mg/3 ml nebulizer solution 3 mL ECG 12 Lead benzonatate (TESSALON PERLES) 100 MG capsule albuterol 90 mcg/actuation inhaler azithromycin (ZITHROMAX) 250 MG tablet No follow-ups on file. ADDITIONAL CLINICAL COMMENTS No notes on file See HPI X-ray interpreted by radiologist, see above. ECG as interpreted by me Sinus Rhythm no axis deviation, no arrhythmia or ectopic beats, QTc 409. No obvious WPW or Brugada. Cough appears to be related to upper respiratory infection. She also is tobacco smoker which by itself can cause coughing. The symptoms of nearly passing out feeling I believe to be vasovagal related to the coughing. Considered pneumonia, aom, pneumothorax, allergic rhinitis, asthma. Plan: Tessalon perrles, zithromax, albuterol inhaler, smoking cessation. Educated patient and/or guardian about signs and symptoms that would warrant further immediate evaluation. Recommended that they should return to urgent care, make an appointment with their family physician, or go to the emergency room if symptoms persist or get acutely worse. Recommended follow upwithin the next week with their PCP or to get established with a PCP soon in order to follow up appropriately. ORDERS PLACED THIS VISIT Orders Placed This Encounter Procedures XR Chest AP/PA and LAT ECG 12 Lead MEDICATION LIST AT END OF VISIT Current Outpatient Medications Medication Sig Dispense Refill predniSONE (DELTASONE) 10 MG tablet albuterol 90 mcg/actuation inhaler Inhale 2 (two) puffs every 6 (six) hours as needed for wheezing . 6.7 g 0 azithromycin (ZITHROMAX) 250 MG tablet Take 2 tablets (500 mg) on Day 1, followed by 1 tablet (250 mg) once daily on Days 2 through 5. . 6 tablet 0 benzonatate (TESSALON PERLES) 100 MG capsule Take 1 (one) capsule (100 mg total) by mouth every 6 (six) hours as needed . 20 capsule 0 No current facility-administered medications for this visit. in this encounter* Reina Fairchild RN - 06/04/2020 11:57 AM EST AVS discussed with patient all questions answered. No further questions at this time. * Candy Cardenas MD - 06/04/2020 8:45 AM EST PROGRESS NOTE Patient Name: Francine Hobson Admit Date: MR #: [id number] : 1985 Assessment and Plan: Small bowel Crohn's -discontinue antibiotics -ok to discharge on prednisone 40mg daily, f/u with me in 2 weeks -will start azathioprine at outpatient visit once TPMT results are back -start Mirian SIMMS as outpatient; neg HBsAg, TB quantiferon pending -clq diet adat to low residue -bentyl 20mg ac at bedtime and acetaminophen 1000mg q6hrs prn for pain -ok to discharge with one week opioids for pain control -advised to return with worsening abdominal pain, sudden onset of severe abd pain, fevers, vomitingor abdominal distension or significant diarrhea; if returns recommend transfer to [facility] as high likelihood she will require bowel resection -advised to continue nicotine patches and quit smoking SUBJECTIVE: She is requesting to go home to take care of her autistic child. Pain has improved mildly. She is having loose BMs and incontinence. No melena or brbpr. No vomiting. Still has exquisite pain and distension when having BM in R mid quadrant. Allergy Information: I have reviewed the patient's allergies. Gluten and Milk Physical Examination: Vital Signs: BP 99/65 (Patient Position: Lying) Pulse 63 Temp 97.9 F (36.6 C) (Oral) Resp 16 Ht 5' 7 Wt 54.4 kg (119 lb 14.9 oz) SpO2 100% BMI 18.78 kg/m General: Comfortable, no distress, alert and oriented x3. CV: Regular rate and rhythm. No clicks, rubs, murmurs, or gallops noted. Lungs: Clear to auscultation bilaterally without wheezes, rhonchi, or crackles noted. No accessory muscles or distress noted. Abdomen: Soft, +right sided tenderness, no r/g, nondistended, +bowel sounds, no masses/hernia, no hepatosplenomegaly, no ascites Neurological: Alert and oriented x3. No focal neurological deficits noted. Extremities: No clubbing, cyanosis, or edema noted. Laboratory and Additional Data Reviewed: Laboratory 06/04/20 10:18 AM Radiology 06/04/20 10:18 AM Medications 06/04/20 10:18 AM [x] reviewed all Candy Cardenas MD * Juan Sahni MD - 06/04/2020 7:29 AM EST [facility] DA[facility] PROGRESS NOTE Assessment and Plan Francine Hobson is a 34 y.o. female patient of Physician No with history of Crohn's disease presented with abdominal pain secondary to exacerbation of Crohn's disease. Acute exacerbation of Crohn's disease Hx of crohn disease s/p bowel resection, off medication for the last 3 years due to insurance issues (previous on Imuran and Remicade). KUB 06/01 with dilated small bowel loops within the left abdomen measuring up to 4 cm in diameter, partial/developing small bowel obstruction is not excluded. CT of the abdomen and pelvis 06/02 suggests diffuse inflammatory wall thickening involving mid and distal small bowel extending to the ileocecal junction, appendectomy and peritoneal free fluid. No evidence of bowel obstruction. CRP 53 and ESR 12. Stool PCR negative. Tolerating full liquid diet. Symptomatic management with IV Dilaudid, oxycodone Cont iv steroids and cipro/ metronidazole Having BM's - Ileus resolved. Advance as tolerated per GI recommendations. D/w GI - can be discharged home. Leukopenia Severe leukopenia, mild neutropenia WBC 3.3->1.8 (95% PMN) Pt states she has always have low WBC Hypokalemia and hypomagnesemia Likely from GI loss Replaced as needed. Severe protein calorie malnutrition BMI 17, albumin 1.7 Code Status: Full Code Quality Measures DVT Prophylaxis: lovenox Freed Catheter: none Disposition Discharge Location: home Estimated Discharge Date: 2-3 days Outpatient Testing: Needs GI follow up. Subjective Had 8 BMs last night. Still with abdominal pain, however improved. Review of Systems All systems have been reviewed and are negative except as noted in HPI or below Objective BP (!) 96/59 Pulse (!) 57 Temp 97.8 F (36.6 C) (Oral) Resp 16 Ht 5' 7 Wt 54.4 kg (119 lb14.9 oz) SpO2 97% BMI 18.78 kg/m Physical Examination General Appearance: alert, well appearing, and in no acute distress HEENT: Head- normocephalic; Eyes- PERRLA, EOMI; Ears- external auditory canals clear, hearing intact; Nose- no nasal discharge; Throat- oropharynx normal Cardiovascular: regular rate and rhythm; normal S1, S2; no murmurs, rubs, clicks or gallops; no peripheral edema Respiratory: lungs clear to auscultation; without wheezes, rales or rhonchi Abdomen: soft, mild tenderness, non-distended; bowel sounds active Neurological: alert, oriented x 3, normal speech; no focal findings or movement disorder noted Musculoskeletal: no significant deformity or tenderness to palpation Skin: normal coloration, texture and turgor; no lesions or eruptions Psych: normal mood and affect Results/Medications Reviewed 06/04/20 7:29 AM Laboratory, Medications and Transcriptions * Ana Lisa RD - 06/03/2020 2:02 PM EST Nutrition Care Follow Up Monitoring and Evaluation: FLD started Nutrition Diagnosis: Unintended weight loss related to limited acceptance to PO as evidenced by -6-7# loss. Resolved butlikely d/t to hydration Nutrition Intervention: Continue Meal and Snacks Nutrition Prescription: Diet: FLD Oral nutrition supplement: none, due to all supplements contain milk products Nutrition Support: none Nutrition Goals: PO intake > 50% most meals Start Date:06/03/2020 Expected End Date:06/08/2020 Nutrition Education: Pt/family education: Learner: patient Educated on: reviewed available foods with food restrictions Readiness: acceptance Method: explanation Response: verbalizes understanding Assessment: Pertinent clinical information: crohns flare up Current weight: 54.4 kg (119 lb 14.9 oz) Weight: +4.7kg Current diet order: FLD Recent intake: only still taking sips, c/o early satiety Current intake does not meet estimated needs. Patient/family comments: Pt reports that she drank some of the soy milk for bkft but got full quickly Difficulty Chewing/Swallowing: No Skin Integrity: Intact GI Function: WNL Physical Appearance: no change Labs: Recent Labs 06/03/20 0559 NA 142 K 4.8 BICARB 29 CL 111* GLUCOSE 112* BUN <1* CREATININE 0.53 MG 2.0 Scheduled Meds: ciprofloxacin 400 mg Intravenous Q12H enoxaparin (LOVENOX) injection 40 mg Subcutaneous Daily methylPREDNISolone sodium succinate 40 mg Intravenous Q8H CATHIE metroNIDAZOLE 500 mg Intravenous Q8H nicotine 1 patch Transdermal Daily pantoprazole 40 mg Intravenous Daily Continuous Infusions: dextrose 5 % and sodium chloride 0.45 % with KCl 20 mEq/L Stopped (06/03/20 1137) Estimated Energy Needs Total Energy Estimated Needs: 4982-7884 Method for Estimating Needs: 25-30 jairo/kg CBW Total Protein Estimated Needs: 40-75 Method for Estimating Needs: 0.8-1.5 gm pro/kg CBW Ana Lisa RD, LD [phone] * Juan Sahni MD - 06/03/2020 7:33 AM EST [facility] [place] PROGRESS NOTE Assessment and Plan Francine Hobson is a 34 y.o. female patient of Physician No with history of Crohn's disease presented with abdominal pain secondary to exacerbation of Crohn's disease. Acute exacerbation of Crohn's disease Hx of crohn disease s/p bowel resection, off medication for the last 3 years due to insurance issues (previous on Imuran and Remicade). KUB 06/01 with dilated small bowel loops within the left abdomen measuring up to 4 cm in diameter, partial/developing small bowel obstruction is not excluded. CT of the abdomen and pelvis 06/02 suggests diffuse inflammatory wall thickening involving mid and distal small bowel extending to the ileocecal junction, appendectomy and peritoneal free fluid. No evidence of bowel obstruction. CRP 53 and ESR 12. Stool PCR pending. Continue IV fluids and n.p.o. pending GI consult. Symptomatic management with IV Dilaudid, oxycodone Cont iv steroids and cipro/ metronidazole Having BM's - Ileus resolved. Leukopenia Severe leukopenia, mild neutropenia WBC 3.3->1.8 (95% PMN) Pt states she has always have low WBC Hypokalemia and hypomagnesemia Likely from GI loss Replaced as needed. Severe protein calorie malnutrition BMI 17, albumin 1.7 When able to eat will need a dietitian consult for supplementation Code Status: Full Code Quality Measures DVT Prophylaxis: lovenox Freed Catheter: none Disposition Discharge Location: home Estimated Discharge Date: 2-3 days Outpatient Testing: Needs GI follow up. Subjective Patient states that she still has abdominal pain. Is on full liquid diet currently. Having regular bowel movements. Review of Systems All systems have been reviewed and are negative except as noted in HPI or below Objective BP (!) 91/54 (BP Location: Right arm, Patient Position: Lying) Pulse (!) 59 Temp 97.5 F (36.4 C) (Oral) Resp 16 Ht 5' 7 Wt 54.4 kg (119 lb 14.9 oz) SpO2 98% BMI 18.78 kg/m Physical Examination General Appearance: alert, well appearing, and in no acute distress HEENT: Head- normocephalic; Eyes- PERRLA, EOMI; Ears- external auditory canals clear, hearing intact; Nose- no nasal discharge; Throat- oropharynx normal Cardiovascular: regular rate and rhythm; normal S1, S2; no murmurs, rubs, clicks or gallops; no peripheral edema Respiratory: lungs clear to auscultation; without wheezes, rales or rhonchi Abdomen: soft, mild tenderness, non-distended; bowel sounds active Neurological: alert, oriented x 3, normal speech; no focal findings or movement disorder noted Musculoskeletal: no significant deformity or tenderness to palpation Skin: normal coloration, texture and turgor; no lesions or eruptions Psych: normal mood and affect Results/Medications Reviewed 06/03/20 7:33 AM Laboratory, Medications and Transcriptions * Marcial Arias MD - 06/02/2020 11:22 AM EST [facility] [place] [facility] PROGRESS NOTE Assessment and Plan Francine Hobson is a 34 y.o. female patient of Physician No with history of Crohn's disease presented with Abdominal pain Acute exacerbation of Crohn's disease Vomiting, SBO Ascites Hx of crohn disease s/p bowel resection, off medication for the last 3 years due to insurance issues (previous on Imuran and remikade) CT Findings consistent with extensive active Crohn's disease in the small bowel extending to the terminal ileum but no evidence of fistula or abscess. Moderate ascites and mesenteric edema Stool PCR pending. ESR 12, CRP53 She is has abdominal pain, has not been eating, she said she has no much bowel movement. Initial CTwith no signs of obstruction. Patient has hyperactive bowel sounds. Abdominal x-ray done reported dilated small bowel loops within the left abdomen measuring up to 4 cm in diameter. Partial/developing small-bowel obstruction is not excluded. We will keep her n.p.o. Will increase IV fluid rate 100 mils per hour. Surgery is consulted. I ordered CT of the abdomen/pelvis to confirm or rule out obstruction. Cont iv steroids and cipro/ metronidazole Zofran for nauseas. Oxy/ dilaudid for pain Pt reports 8-10 BM a day on normal day, no BM since 3 days back. GI not available at this point butGI consult is placed. Leukopenia Severe leukopenia, mild neutropenia WBC 3.3->1.2 (95% PMN) Pt states she has always have low WBC Cont abx in case infection related to exacerbation Monitor Hypokalemia and hypomagnesemia Likely from GI loss Replaced as needed. Severe protein caloric malnutrition BMI 17, albumin 1.7 When able to eat will need a dietitian consult for supplementation Code Status: Full Code Quality Measures DVT Prophylaxis: lovenox Freed Catheter: none Disposition Discharge Location: home Estimated Discharge Date: 2-3 days Outpatient Testing: Subjective Has abdominal pain. Her bowel sounds is hypoactive. She did not eat full liquid diet she said she felt yesterday okay and I advanced her diet Review of Systems Eyes: Denies vision changes ENT: Denies hearing loss, nasal congestion, sore throat CV: Denies chest pain, palpitations, peripheral edema Respiratory: Denies shortness of breath, cough, wheezing GI: Denies abdominal pain, nausea, vomiting, diarrhea, constipation Objective BP (!) 97/59 Pulse 72 Temp 97.8 F (36.6 C) (Oral) Resp 16 Ht 5' 7 Wt 53.1 kg (117 lb 1 oz) SpO2 99% BMI 18.33 kg/m Physical Examination General Appearance: alert, well appearing, and in no acute distress HEENT: Head- normocephalic; Eyes- PERRLA, EOMI; Ears- external auditory canals clear, hearing intact; Nose- no nasal discharge; Throat- oropharynx normal Cardiovascular: regular rate and rhythm; normal S1, S2; no murmurs, rubs, clicks or gallops; no peripheral edema Respiratory: lungs clear to auscultation; without wheezes, rales or rhonchi Abdomen: soft, mild tenderness, non-distended; bowel sounds is hypoactive Neurological: alert, oriented x 3, normal speech; no focal findings or movement disorder noted Musculoskeletal: no significant deformity or tenderness to palpation Skin: normal coloration, texture and turgor; no lesions or eruptions Psych: normal mood and affect Results/Medications Reviewed 06/02/20 11:22 AM Laboratory, Medications and Transcriptions * Marcial Arias MD - 06/01/2020 3:22 PM EST [facility] PROGRESS NOTE Assessment and Plan Francine Hobson is a 34 y.o. female patient of Physician No with history of Crohn's disease presented with Abdominal pain Acute exacerbation of Crohn's disease Vomiting Ascites Hx of crohn disease s/p bowel resection, off medication for the last 3 years due to insurance issues (previous on Imuran and remikade) CT Findings consistent with extensive active Crohn's disease in the small bowel extending to the terminal ileum but no evidence of fistula or abscess. Moderate ascites and mesenteric edema Stool PCR pending. ESR 12, CRP53 I She is not having nausea or vomiting. V fluids is decreased to 50 ml/hr, advance diet to full liquid. Cont iv steroids and cipro/ metronidazole Zofran for nauseas. Oxy/ dilaudid for pain Pt reports 8-10 BM a day on normal day, no BM since [address] with no signs of obstruction. GI not available at this point, will monitor for now. Leukopenia Severe leukopenia, mild neutropenia WBC 3.3->1.2 (95% PMN) Pt states she has always have low WBC Cont abx in case infection related to exacerbation Monitor Hypokalemia and hypomagnesemia Likely from GI loss Replaced as needed. Severe protein caloric malnutrition BMI 17, albumin 1.7 When able to eat will need a dietitian consult for supplementation Code Status: Full Code Quality Measures DVT Prophylaxis: lovenox Freed Catheter: none Disposition Discharge Location: home Estimated Discharge Date: 2-3 days Outpatient Testing: Subjective She is feeling a bit better but became irritable. She said whenever she is on steroids she became irritable. She has no vomiting or nausea. She has no bowel movement. Review of Systems Eyes: Denies vision changes ENT: Denies hearing loss, nasal congestion, sore throat CV: Denies chest pain, palpitations, peripheral edema Respiratory: Denies shortness of breath, cough, wheezing GI: Denies abdominal pain, nausea, vomiting, diarrhea, constipation Objective BP 92/60 (BP Location: Right arm, Patient Position: Lying) Pulse 70 Temp 97.5 F (36.4 C) (Oral) Resp 16 Ht 5' 7 Wt 53.1 kg (117 lb 1 oz) SpO2 99% BMI 18.33 kg/m Physical Examination General Appearance: alert, well appearing, and in no acute distress HEENT: Head- normocephalic; Eyes- PERRLA, EOMI; Ears- external auditory canals clear, hearing intact; Nose- no nasal discharge; Throat- oropharynx normal Cardiovascular: regular rate and rhythm; normal S1, S2; no murmurs, rubs, clicks or gallops; no peripheral edema Respiratory: lungs clear to auscultation; without wheezes, rales or rhonchi Abdomen: soft, non-tender, non-distended; positive bowel sounds Neurological: alert, oriented x 3, normal speech; no focal findings or movement disorder noted Musculoskeletal: no significant deformity or tenderness to palpation Skin: normal coloration, texture and turgor; no lesions or eruptions Psych: normal mood and affect Results/Medications Reviewed 06/01/20 3:22 PM Laboratory, Medications and Transcriptions * Kelin Guallpa RN - 06/01/2020 11:10 AM EST Message sent to Provider * Ana Lisa RD - 05/31/2020 2:37 PM EST Nutrition Care Initial Assessment Reason for visit: Dietitian Screen for BMI Nutrition Diagnosis: Unintended weight loss related to limited acceptance to PO as evidenced by -6-7# loss . Pt meets ASPEN criteria for non-severe malnutrition in the context of acute illness/injury related to inadequate PO intake as evidence by decreased PO intake >1 week, physical assessment and wt loss Nutrition Intervention: Initiate Nutrition Education Nutrition Prescription: Diet: CLD Oral nutrition supplement: offered Boost Breeze but contains milk protein, no milk free supplementsavailable Nutrition Support: none Nutrition Goals: full source of nutrition within 3 days Start Date:05/31/2020 Expected End Date:06/05/2020 Nutrition Education: Pt/family education: Learner: patient Educated on: importance of adequate PO intake and available snacks and supplements Readiness: acceptance Method: explanation Response: verbalizes understanding Assessment: Pertinent clinical information: Crohns, s/o bowel resection. Hypokalemia, hypomagnesemia. Past Medical History: Diagnosis Date Crohn's disease (HCC) Height: 5' 7 Current weight: 49.7 kg (109 lb 9.1 oz) BMI Body mass index is 17.16 kg/m . Weight hx: Pt reports that she has lost -6-7# but she is unsure in what time frame, Pt reports [id number] is her UBW.. This is about a 5% loss Wt Readings from Last 5 Encounters: 05/31/20 49.7 kg (109 lb 9.1 oz) 09/10/18 60.2 kg (132 lb 12.8 oz) 04/30/18 59 kg (130 lb) Current diet order: CLD Recent intake: water Current intake does not meet estimated needs. Patient/family comments: Pt has been unable to keep anything down for the past 3 days downs with decreased PO intake <50% for 7 days Food Allergies: Added Gluten and Dairy as an allergy, because Pt stays away from them due they cause pain, flareup and irriation. Difficulty Chewing/Swallowing: No Skin Integrity: Intact GI Function: nausea, cramping Physical Appearance: Nutrition Focus Physical Exam Type: Hands-On Regions Assessed Orbital: mild fat depletion, s;ighty dark circles Temporal: WNL Clavicular: mild muscle depletion Interosseous: mild muscle depletion Upper Arm: WNL Thoracic/Lumbar: tyrone Deltoid and Acromion Process: mild muscle depletion Scapular: tyrone Quadriceps: mild muscle depletion Labs: Recent Labs 05/31/20 0414 NA 138 K 3.4* BICARB 27 CL 105 GLUCOSE 134* BUN 4* CREATININE 0.46 MG 1.5* PHOS 3.8 No results found for: HGBA1C Scheduled Meds: ciprofloxacin 400 mg Intravenous Q12H enoxaparin (LOVENOX) injection 40 mg Subcutaneous Daily methylPREDNISolone sodium succinate 40 mg Intravenous Q8H CATHIE metroNIDAZOLE 500 mg Intravenous Q8H pantoprazole 40 mg Intravenous Daily Continuous Infusions: dextrose 5 % and sodium chloride 0.45 % with KCl 20 mEq/L Stopped (05/31/20 1253) Estimated Energy Needs Total Energy Estimated Needs: [id number] Method for Estimating Needs: 25-30 jairo/kg CBW Total Protein Estimated Needs: 40-75 Method for Estimating Needs: 0.8-1.5 gm pro/kg CBW Ana Lisa RD, LD [phone] * Kristen Bejarano MD - 05/31/2020 10:46 AM EST [facility] PROGRESS NOTE Assessment and Plan Francine Hobson is a 34 y.o. female patient of Physician No with history of Crohn's disease presented with Abdominal pain Acute exacerbation of Crohn's disease Vomiting Ascites Hx of crohn disease s/p bowel resection, off medication for the last 3 years due to insurance issues (previous on Imuran and remikade) CT Findings consistent with extensive active Crohn's disease in the small bowel extending to the terminal ileum but no evidence of fistula or abscess. Moderate ascites and mesenteric edema Stool PCR pending. ESR 12, CRP53 IV fluids started, will order 1 l NS bolus due ot mild hypotension Will start high dose steroids and cipro/ metronidazole Zofran for nauseas. Oxy/ dilaudid for pain Pt reports 8-10 BM a day on normal day, now no BM since yesterday. BS decreased. CT with no signs of obstruction. Will cont clear diet, but if pt vomits will change to NPO as pt with high risk for SBO due to previous resection GI not available at this point, will monitor for now. Leukopenia Severe leukopenia, mild neutropenia WBC 3.3->1.2 (95% PMN) Pt states she has always have low WBC Pt started on abx in case infection related to exacerbation Monitor Hypokalemia and hypomagnesemia Likely from GI loss Replaced IV and PO Severe protein caloric malnutrition BMI 17, albumin 1.7 When able to eat will need a dietitian consult for supplementation Code Status: Full Code Quality Measures DVT Prophylaxis: lovenox Freed Catheter: none Disposition Discharge Location: home Estimated Discharge Date: 2-3 days Outpatient Testing: Subjective Pt very uncomfortable, severe abdominal pain generalized and nauseas. Pt upset about not receiving medication Review of Systems All systems have been reviewed and are negative except as noted in HPI or below Objective BP (!) 97/59 (BP Location: Right arm, Patient Position: Lying) Pulse 72 Temp 97.4 F (36.3 C) (Oral) Resp 17 Ht 5' 7 Wt 49.7 kg (109 lb 9.1 oz) SpO2 98% BMI 17.16 kg/m Physical Examination General Appearance: alert, ill appearing, and in acute distress HEENT: Head- normocephalic; Eyes- PERRLA, EOMI; Ears- external auditory canals clear, hearing intact; Nose- no nasal discharge; Throat- oropharynx normal Cardiovascular: regular rate and rhythm; normal S1, S2; no murmurs, rubs, clicks or gallops; no peripheral edema Respiratory: lungs clear to auscultation; without wheezes, rales or rhonchi Abdomen: soft, Tender to palpation all over worst stefania umbilical, non-distended; decreased bowel sounds Neurological: alert, oriented x 3, normal speech; no focal findings or movement disorder noted Musculoskeletal: no significant deformity or tenderness to palpation Skin: normal coloration, texture and turgor; no lesions or eruptions Results/Medications Reviewed 05/31/20 10:46 AM Laboratory, Microbiology, Radiology, Cardiology, Medications and Transcriptions documented in this encounter* Candy Cardenas MD - 06/18/2020 10:47 AM EST [facility] [address] [place] [phone] Francine Hobson is here today for follow-up. The encounter diagnosis was Crohn's disease of small intestine without complication (HCC). HPI: Here for 2 week HFU for small bowel Crohn's. She has been on prednisone 40mg daily for past 2 weeks. Abdominal pain has improved significantly but she does still have abdominal distension and discomfort with eating but it has improved as well. She feels she has improved 40%. No vomiting. She is having 5-6 nonbloody BMS, with improved consistency but still loose.She is eating solid foods. She has gained 7lbs. She is doing plant based protein shakes 30g daily. She has quit smoking. BP 96/62 Pulse 79 Wt 53.5 kg (118 lb) BMI 18.48 kg/m Wt Readings from Last 6 Encounters: 06/18/20 53.5 kg (118 lb) 06/03/20 54.4 kg (119 lb 14.9 oz) 09/10/18 60.2 kg (132 lb 12.8 oz) 04/30/18 59 kg (130 lb) Body mass index is 18.48 kg/m . Physical Exam Constitutional: Oriented to person, place, and time. Thin. HEENT: Head: Normocephalic and atraumatic. Mouth/Throat: Oropharynx is clear and moist. No lesions. Eyes: Conjunctivae and EOM are normal. Neck: Neck supple. No tracheal deviation. No thyromegaly present. Cardiovascular: Normal rate and regular rhythm. Normal S1/S2. No murmurs, rubs, or gallops. Pulmonary/Chest: Clear to auscultation bilaterally. No wheezes, rales or rhonchi. Normal respiratory effort. Abdominal: Soft, right sided tenderness, nondistended. No hepatosplenomegaly. No fluid wave. No caput medusae. No hernia. No masses. Musculoskeletal: No gross deformities. Lymphadenopathy: No cervical or supraclavicular LAD. Neurological: Alert and oriented to person, place, and time. No cranial nerve deficits. Skin: Skin is warm and dry. No rash noted. No cyanosis. Nails show no clubbing. Psychiatric: Mood and affect normal. 1. Crohn's disease of small intestine without complication (HCC) predniSONE (DELTASONE) 10 MG tablet azaTHIOprine (IMURAN) 50 mg tablet CBC and Differential Comprehensive Metabolic Panel ondansetron (ZOFRAN-ODT) 4 MG disintegrating tablet Severe small bowel Crohn's with recent hospitalization, off combination therapy with Humira and azathioprine for past 3 years due to lack of health insurance, needs both resumed Prednisone taper by 5mg weekly Humira PA Start imuran 50mg daily and check cbc and LFTs every 2 weeks Discussed COVID 19 preventive measures for when leaving the house including, masking when indoors and around others, avoid gatherings outside of immediate family and work, social distancing, thoroughhandwashing of all for at least 20 seconds and proper use of hand value stream coach and avoidance of touching the face. Humira We discussed the risks of anti-TNF therapy including but not limited to injection site reactions, infusion reactions (acute and delayed), demyelinating disease, heart failure, cytopenias, pulmonary disease, hepatotoxicity, cutaneous reactions including psoriasis, infections which can be serious andlife threatening including reactivation of latent TB or hepatitis B, malignancy (lymphomas, incurable and universally fatal hepatosplenic T cell lymphoma, melanoma and non-melanoma skin cancers, leukemia, and less likely solid organ malignancies). I referred the patient to the appropriate website of the medication to review all potential side effects and that others not listed may be possible. We discussed skipping medication if feeling ill or if being treated for an infection until the illness/infection has completely resolved and then taking the medication. We discussed the importance of compliance with medications and reporting the development of any newsymptoms or signs or illness. HEALTH MAINTENANCE We also emphasized the importance of being up to date on vaccinations and avoiding vaccination withlive viruses while on treatment. Advised to follow-up with a primary care provider or the public health department as it relates to vaccinations. - Annual influenza vaccine - Initial pneumonia vaccine, Prevnar 13 and then Pneumovax 23 6 months later. Every five years you should have Pneumovax 23 - Tdap vaccination if not given in the last 10 years or greater than 2yrs since last Td booster andthen tetanus booster every 10 years - Consider HPV vaccination if < 26yrs old - Recommend meningococcal vaccine for those living in dormitories, institutions or - The following LIVE vaccines should be avoided while on treatment MMR, Zoster, Varicella, Typhoid,Smallpox and Yellow fever - Recommended COVID 19 vaccination when it is available RECOMMEND: - Annual total body skin exam for skin cancer screening with a rice farmworker - Regular use of sunscreen when going outdoors - A comprehensive history and physical exam annually with your primary care provider -Routine blood work every 6 months -Annual TB quantiferon blood test and Hepatitis B screening We discussed the risks of Imuran (azathioprine) including but not limited to myelosuppression (bone marrow toxicity), hepatotoxicity (liver toxicity), pancreatitis, infections which can be serious and life threatening, non-melanoma skin cancers, lymphoma and rarely a universally fatal form of lymphoma called HSCTL.Whether the increased risk of lymphoma is due to the medications alone or the combination of medications and the underlying IBD is unclear. Imuran We discussed the importance of medication compliance and frequent blood monitoring with bi-weekly CBC and LFTs until 2 weeks after goal dose has been reached and then every 3-4 months for as long as you are taking the medication. We discussed the importance of compliance with medications and reporting the development of any new symptoms or signs or illness. 40 minute visit with 40 minutes spent face to face on education of Crohn's disease diagnosis, prognosis, complications, treatment risks/benefits and side effects. Thank you very much for allowing me to participate in your patient's care and if you have any further questions please do not hesitate to call. Sincerely; Candy Cardenas MD Return in about 3 months (around 09/16/2020). Recent Results (from the past 1344 hour(s)) Lavender Top Collection Time: 05/30/20 6:15 PM Result Value Ref Range Extra Tube Hold for add-ons. Mint Green Top Collection Time: 05/30/20 6:15 PM Result Value Ref Range Extra Tube Hold for add-ons. Gold Top Collection Time: 05/30/20 6:15 PM Result Value Ref Range Extra Tube Hold for add-ons. Light Blue Top Collection Time: 05/30/20 6:15 PM Result Value Ref Range Extra Tube Hold for add-ons. BMP Collection Time: 05/30/20 6:15 PM Result Value Ref Range Sodium 135 135 - 145 mmol/L Potassium 2.6 (CL) 3.5 - 5.1 mmol/L Chloride 96 (L) 98 - 108 mmol/L Bicarbonate 29 21 - 32 mmol/L Anion Gap 13 10 - 20 mmol/L Glucose 112 (H) 65 - 99 mg/dL BUN 8 8 - 25 mg/dL Creatinine 0.70 0.40 - 1.10 mg/dL eGFR 115 >=60 mL/min/1.73 m2 BUN/Creatinine Ratio 11.4 10.0 - 20.0 Calcium 8.6 8.4 - 10.2 mg/dL Hepatic Function Panel (LFT) Collection Time: 05/30/20 6:15 PM Result Value Ref Range Total Protein 6.5 6.0 - 8.0 g/dL Albumin 2.2 (L) 3.2 - 5.2 g/dL Total Bilirubin 0.4 0.0 - 1.3 mg/dL Bilirubin, Direct 0.1 0.0 - 0.4 mg/dL Alkaline Phosphatase 93 40 - 140 U/L AST 17 0 - 45 U/L ALT 13 (L) 14 - 65 U/L Lipase Collection Time: 05/30/20 6:15 PM Result Value Ref Range Lipase 33 (L) 73 - 393 U/L CBC Auto Differential Collection Time: 05/30/20 6:15 PM Result Value Ref Range WBC 3.31 (L) 4.50 - 11.00 K/mcL RBC 4.38 4.00 - 5.20 M/mcL Hemoglobin 13.7 12.0 - 16.0 g/dL Hematocrit 38.2 36.0 - 46.0 % MCV 87.2 80.0 - 100.0 fL MCH 31.3 26.0 - 34.0 pg MCHC 35.9 31.0 - 37.0 g/dL Platelets 381 150 - 400 K/mcL RDW - CV 13.7 11.6 - 14.8 % MPV 9.3 (L) 9.4 - 12.4 fL Neutrophils 65.2 % Lymphocytes 22.7 % Monocytes 10.9 % Eosinophils 0.6 % Basophils 0.3 % IG Percent 0.30 % Neutrophils Abs 2.16 1.70 - 7.00 K/mcL Lymphocytes Abs 0.75 (L) 0.90 - 4.00 K/mcL Monocytes Abs 0.36 0.30 - 0.90 K/mcL Eosinophils Abs 0.02 0.00 - 0.50 K/mcL Basophils Abs 0.01 0.00 - 0.30 K/mcL IG Absolute 0.01 0.00 - 0.30 K/mcL Nucleated RBC 0.0 % Nucleated RBC Abs 0.00 0.00 - 0.00 K/mcL Sedimentation Rate Collection Time: 05/30/20 6:15 PM Result Value Ref Range Sed Rate 12 0 - 20 mm/hr CRP, Inflammation Collection Time: 05/30/20 6:15 PM Result Value Ref Range CRP(Inflammation) 53.5 (H) <=10.0 mg/L EKG 12-lead Collection Time: 05/30/20 8:50 PM Result Value Ref Range Ventricular Rate 100 BPM Atrial Rate 100 BPM P-R Interval 148 ms QRS Duration 84 ms Q-T Interval 384 ms QTC Calculation (Bezet) 495 ms P Bertram 44 degrees R Bertram 81 degrees T Bertram 54 degrees Urinalysis Collection Time: 05/30/20 8:54 PM Result Value Ref Range Color, Urine Colorless Colorless, Yellow Clarity, Urine Clear Clear Specific [place] >1.050 (H) 1.005 - 1.025 pH, Urine 6.0 5.0 - 7.0 Protein, Urine Negative Negative mg/dL Glucose, Urine Negative Negative mg/dL Ketones, Urine >=80 (A) Negative mg/dL Bilirubin, Urine Negative Negative Urobilinogen, Urine <2.0 <2.0 mg/dL Blood, Urine Negative Negative Nitrite, Urine Negative Negative Leukocyte Esterase, Urine Negative Negative WBCs, Urine 1 0 - 5 /hpf RBCs, Urine 1 0 - 3 /hpf Bacteria, Urine None Seen None Seen /hpf Squamous Epithelial 3 0 - 4 /hpf Transitional Epithelial <1 0 - 1 /hpf Urine Aerobic Culture Collection Time: 05/30/20 8:54 PM Specimen: Urine, Clean Catch Result Value Ref Range Culture No Growth (<1,000 CFU/mL) COVID-19/Influenza A,B Molecular Collection Time: 05/30/20 10:21 PM Specimen: Nasopharyngeal; Swab Result Value Ref Range SARS-CoV-2 Not Detected Not Detected Influenza A Not Detected Not Detected Influenza B Not Detected Not Detected Comprehensive Metabolic Panel Collection Time: 05/31/20 4:14 AM Result Value Ref Range Sodium 138 135 - 145 mmol/L Potassium 3.4 (L) 3.5 - 5.1 mmol/L Chloride 105 98 - 108 mmol/L Bicarbonate 27 21 - 32 mmol/L Anion Gap 9 (L) 10 - 20 mmol/L Glucose 134 (H) 65 - 99 mg/dL BUN 4 (L) 8 - 25 mg/dL Creatinine 0.46 0.40 - 1.10 mg/dL eGFR 132 >=60 mL/min/1.73 m2 BUN/Creatinine Ratio 8.7 (L) 10.0 - 20.0 Total Protein 5.2 (L) 6.0 - 8.0 g/dL Albumin 1.7 (L) 3.2 - 5.2 g/dL Calcium 7.5 (L) 8.4 - 10.2 mg/dL Alkaline Phosphatase 72 40 - 140 U/L AST 12 0 - 45 U/L Total Bilirubin 0.2 0.0 - 1.3 mg/dL ALT 12 (L) 14 - 65 U/L Magnesium Collection Time: 05/31/20 4:14 AM Result Value Ref Range Magnesium 1.5 (L) 1.6 - 2.4 mg/dL Phosphorus Collection Time: 05/31/20 4:14 AM Result Value Ref Range Phosphorus 3.8 2.7 - 4.5 mg/dL PT/INR Collection Time: 05/31/20 4:14 AM Result Value Ref Range Protime (PT) 14.4 (H) 11.8 - 14.3 seconds INR 1.2 (H) 0.8 - 1.1 CBC Auto Differential Collection Time: 05/31/20 4:14 AM Result Value Ref Range WBC 1.21 (L) 4.50 - 11.00 K/mcL RBC 3.42 (L) 4.00 - 5.20 M/mcL Hemoglobin 10.6 (L) 12.0 - 16.0 g/dL Hematocrit 30.7 (L) 36.0 - 46.0 % MCV 89.8 80.0 - 100.0 fL MCH 31.0 26.0 - 34.0 pg MCHC 34.5 31.0 - 37.0 g/dL Platelets 283 150 - 400 K/mcL RDW - CV 13.8 11.6 - 14.8 % MPV 9.4 9.4 - 12.4 fL Neutrophils 78.5 % Lymphocytes 15.7 % Monocytes 5.0 % Eosinophils 0.0 % Basophils 0.0 % IG Percent 0.80 % Neutrophils Abs 0.95 (L) 1.70 - 7.00 K/mcL Lymphocytes Abs 0.19 (L) 0.90 - 4.00 K/mcL Monocytes Abs 0.06 (L) 0.30 - 0.90 K/mcL Eosinophils Abs 0.00 0.00 - 0.50 K/mcL Basophils Abs 0.00 0.00 - 0.30 K/mcL IG Absolute 0.01 0.00 - 0.30 K/mcL Nucleated RBC 0.0 % Nucleated RBC Abs 0.00 0.00 - 0.00 K/mcL Bilirubin, Direct Collection Time: 05/31/20 4:14 AM Result Value Ref Range Bilirubin, Direct <0.1 0.0 - 0.4 mg/dL Basic Metabolic Panel Collection Time: 06/02/20 5:49 AM Result Value Ref Range Sodium 141 135 - 145 mmol/L Potassium 5.2 (H) 3.5 - 5.1 mmol/L Chloride 112 (H) 98 - 108 mmol/L Bicarbonate 29 21 - 32 mmol/L Anion Gap 5 (L) 10 - 20 mmol/L Glucose 123 (H) 65 - 99 mg/dL BUN <1 (L) 8 - 25 mg/dL Creatinine 0.51 0.40 - 1.10 mg/dL eGFR 128 >=60 mL/min/1.73 m2 BUN/Creatinine Ratio Calcium 8.0 (L) 8.4 - 10.2 mg/dL CBC Collection Time: 06/02/20 5:49 AM Result Value Ref Range WBC 1.84 (L) 4.50 - 11.00 K/mcL RBC 3.22 (L) 4.00 - 5.20 M/mcL Hemoglobin 10.0 (L) 12.0 - 16.0 g/dL Hematocrit 30.8 (L) 36.0 - 46.0 % MCV 95.7 80.0 - 100.0 fL MCH 31.1 26.0 - 34.0 pg MCHC 32.5 31.0 - 37.0 g/dL Platelets 310 150 - 400 K/mcL RDW - CV 14.4 11.6 - 14.8 % MPV 9.6 9.4 - 12.4 fL Nucleated RBC 0.5 % Nucleated RBC Abs 0.01 (H) 0.00 - 0.00 K/mcL Basic Metabolic Panel Collection Time: 06/03/20 5:59 AM Result Value Ref Range Sodium 142 135 - 145 mmol/L Potassium 4.8 3.5 - 5.1 mmol/L Chloride 111 (H) 98 - 108 mmol/L Bicarbonate 29 21 - 32 mmol/L Anion Gap 7 (L) 10 - 20 mmol/L Glucose 112 (H) 65 - 99 mg/dL BUN <1 (L) 8 - 25 mg/dL Creatinine 0.53 0.40 - 1.10 mg/dL eGFR 126 >=60 mL/min/1.73 m2 BUN/Creatinine Ratio Calcium 8.2 (L) 8.4 - 10.2 mg/dL Magnesium Level Collection Time: 06/03/20 5:59 AM Result Value Ref Range Magnesium 2.0 1.6 - 2.4 mg/dL Stool/GI PCR Panel Collection Time: 06/03/20 9:52 AM Specimen: Stool Result Value Ref Range Campylobacter species Not Detected Not Detected Clostridium difficile Toxin A/B Not Detected Not Detected Plesiomonas shigelloides Not Detected Not Detected Salmonella species Not Detected Not Detected Vibrio species Not Detected Not Detected Vibrio chloreae Not Detected Not Detected Yersinia enterocolitica Not Detected Not Detected Enteroaggregative E. coli (EAEC) Not Detected Not Detected Enteropathogenic E. coli (EPEC) Not Detected Not Detected Enterotoxigenic E. coli (ETEC) Not Detected Not Detected Shiga-like toxin-producing E. coli (STEC) 1/2 Not Detected Not Detected Shigella/Enteroinvasive E. coli (EIEC) Not Detected Not Detected Cryptosporidium species Not Detected Not Detected Cyclospora cayetanensis Not Detected Not Detected Entamoeba histolytica Not Detected Not Detected Giardia lamblia Not Detected Not Detected Adenovirus F 40/41 Not Detected Not Detected Astrovirus Not Detected Not Detected Norovirus GI/GII Not Detected Not Detected Rotavirus A Not Detected Not Detected Sapovirus Not Detected Not Detected Chem 7 Collection Time: 06/04/20 6:31 AM Result Value Ref Range Sodium 141 135 - 145 mmol/L Potassium 4.6 3.5 - 5.1 mmol/L Chloride 109 (H) 98 - 108 mmol/L Bicarbonate 29 21 - 32 mmol/L Creatinine 0.51 0.40 - 1.10 mg/dL Glucose 91 65 - 99 mg/dL BUN 2 (L) 8 - 25 mg/dL eGFR 128 >=60 mL/min/1.73 m2 BUN/Creatinine Ratio 3.9 (L) 10.0 - 20.0 Anion Gap 8 (L) 10 - 20 mmol/L Magnesium Level Collection Time: 06/04/20 6:31 AM Result Value Ref Range Magnesium 2.1 1.6 - 2.4 mg/dL Phosphorus Collection Time: 06/04/20 6:31 AM Result Value Ref Range Phosphorus 4.1 2.7 - 4.5 mg/dL Hepatitis B Surface Antigen Collection Time: 06/04/20 6:31 AM Result Value Ref Range Hepatitis B Surface Ag Negative Negative CRP, Inflammation Collection Time: 06/04/20 6:31 AM Result Value Ref Range CRP(Inflammation) <2.9 <=10.0 mg/L CBC Collection Time: 06/04/20 8:20 AM Result Value Ref Range WBC 5.37 4.50 - 11.00 K/mcL RBC 3.73 (L) 4.00 - 5.20 M/mcL Hemoglobin 11.6 (L) 12.0 - 16.0 g/dL Hematocrit 35.7 (L) 36.0 - 46.0 % MCV 95.7 80.0 - 100.0 fL MCH 31.1 26.0 - 34.0 pg MCHC 32.5 31.0 - 37.0 g/dL Platelets 359 150 - 400 K/mcL RDW - CV 14.4 11.6 - 14.8 % MPV 9.4 9.4 - 12.4 fL Nucleated RBC 0.0 % Nucleated RBC Abs 0.00 0.00 - 0.00 K/mcL M. Tuberculosis by QuantiFERON Collection Time: 06/04/20 8:21 AM Result Value Ref Range M. tuberculosis by Quantiferon in tube Negative Negative M. Tuberculosis Report See scanned report for additional information Thiopurine Methyltransferase (Activity Profile), RBC Collection Time: 06/04/20 8:21 AM Result Value Ref Range Interpretation See Ref Lab Comment 6 - Methylmercaptopurine 2.43 (L) 3.00 - 6.66 nmol/mL/h 6 - Methylmercaptopurine riboside 4.31 (L) 5.04 - 9.57 nmol/mL/h 6 - Methylthioguanine riboside 3.42 2.70 - 5.84 nmol/mL/h Reviewed By SEE BELOW documented in this encounter* Candy Cardenas MD - 06/18/2020 10:47 AM EST [facility] [address] [place] [phone] Francine Hboson is here today for follow-up. The encounter diagnosis was Crohn's disease of small intestine without complication (HCC). HPI: Here for 2 week HFU for small bowel Crohn's. She has been on prednisone 40mg daily for past 2 weeks. Abdominal pain has improved significantly but she does still have abdominal distension and discomfort with eating but it has improved as well. She feels she has improved 40%. No vomiting. She is having 5-6 nonbloody BMS, with improved consistency but still loose.She is eating solid foods. She has gained 7lbs. She is doing plant based protein shakes 30g daily. She has quit smoking. BP 96/62 Pulse 79 Wt 53.5 kg (118 lb) BMI 18.48 kg/m Wt Readings from Last 6 Encounters: 06/18/20 53.5 kg (118 lb) 06/03/20 54.4 kg (119 lb 14.9 oz) 09/10/18 60.2 kg (132 lb 12.8 oz) 04/30/18 59 kg (130 lb) Body mass index is 18.48 kg/m . Physical Exam Constitutional: Oriented to person, place, and time. Thin. HEENT: Head: Normocephalic and atraumatic. Mouth/Throat: Oropharynx is clear and moist. No lesions. Eyes: Conjunctivae and EOM are normal. Neck: Neck supple. No tracheal deviation. No thyromegaly present. Cardiovascular: Normal rate and regular rhythm. Normal S1/S2. No murmurs, rubs, or gallops. Pulmonary/Chest: Clear to auscultation bilaterally. No wheezes, rales or rhonchi. Normal respiratory effort. Abdominal: Soft, right sided tenderness, nondistended. No hepatosplenomegaly. No fluid wave. No caput medusae. No hernia. No masses. Musculoskeletal: No gross deformities. Lymphadenopathy: No cervical or supraclavicular LAD. Neurological: Alert and oriented to person, place, and time. No cranial nerve deficits. Skin: Skin is warm and dry. No rash noted. No cyanosis. Nails show no clubbing. Psychiatric: Mood and affect normal. 1. Crohn's disease of small intestine without complication (HCC) predniSONE (DELTASONE) 10 MG tablet azaTHIOprine (IMURAN) 50 mg tablet CBC and Differential Comprehensive Metabolic Panel ondansetron (ZOFRAN-ODT) 4 MG disintegrating tablet Severe small bowel Crohn's with recent hospitalization, off combination therapy with Humira and azathioprine for past 3 years due to lack of health insurance, needs both resumed Prednisone taper by 5mg weekly Humira PA Start imuran 50mg daily and check cbc and LFTs every 2 weeks Discussed COVID 19 preventive measures for when leaving the house including, masking when indoors and around others, avoid gatherings outside of immediate family and work, social distancing, thoroughhandwashing of all for at least 20 seconds and proper use of hand value stream coach and avoidance of touching the face. Humira We discussed the risks of anti-TNF therapy including but not limited to injection site reactions, infusion reactions (acute and delayed), demyelinating disease, heart failure, cytopenias, pulmonary disease, hepatotoxicity, cutaneous reactions including psoriasis, infections which can be serious andlife threatening including reactivation of latent TB or hepatitis B, malignancy (lymphomas, incurable and universally fatal hepatosplenic T cell lymphoma, melanoma and non-melanoma skin cancers, leukemia, and less likely solid organ malignancies). I referred the patient to the appropriate website of the medication to review all potential side effects and that others not listed may be possible. We discussed skipping medication if feeling ill or if being treated for an infection until the illness/infection has completely resolved and then taking the medication. We discussed the importance of compliance with medications and reporting the development of any newsymptoms or signs or illness. HEALTH MAINTENANCE We also emphasized the importance of being up to date on vaccinations and avoiding vaccination withlive viruses while on treatment. Advised to follow-up with a primary care provider or the public health department as it relates to vaccinations. - Annual influenza vaccine - Initial pneumonia vaccine, Prevnar 13 and then Pneumovax 23 6 months later. Every five years you should have Pneumovax 23 - Tdap vaccination if not given in the last 10 years or greater than 2yrs since last Td booster andthen tetanus booster every 10 years - Consider HPV vaccination if < 26yrs old - Recommend meningococcal vaccine for those living in dormitories, institutions or - The following LIVE vaccines should be avoided while on treatment MMR, Zoster, Varicella, Typhoid,Smallpox and Yellow fever - Recommended COVID 19 vaccination when it is available RECOMMEND: - Annual total body skin exam for skin cancer screening with a rice farmworker - Regular use of sunscreen when going outdoors - A comprehensive history and physical exam annually with your primary care provider -Routine blood work every 6 months -Annual TB quantiferon blood test and Hepatitis B screening We discussed the risks of Imuran (azathioprine) including but not limited to myelosuppression (bone marrow toxicity), hepatotoxicity (liver toxicity), pancreatitis, infections which can be serious and life threatening, non-melanoma skin cancers, lymphoma and rarely a universally fatal form of lymphoma called HSCTL.Whether the increased risk of lymphoma is due to the medications alone or the combination of medications and the underlying IBD is unclear. Imuran We discussed the importance of medication compliance and frequent blood monitoring with bi-weekly CBC and LFTs until 2 weeks after goal dose has been reached and then every 3-4 months for as long as you are taking the medication. We discussed the importance of compliance with medications and reporting the development of any new symptoms or signs or illness. 40 minute visit with 40 minutes spent face to face on education of Crohn's disease diagnosis, prognosis, complications, treatment risks/benefits and side effects. Thank you very much for allowing me to participate in your patient's care and if you have any further questions please do not hesitate to call. Sincerely; Candy Cardenas MD Return in about 3 months (around 09/16/2020). Recent Results (from the past 1344 hour(s)) Lavender Top Collection Time: 05/30/20 6:15 PM Result Value Ref Range Extra Tube Hold for add-ons. Mint Green Top Collection Time: 05/30/20 6:15 PM Result Value Ref Range Extra Tube Hold for add-ons. Gold Top Collection Time: 05/30/20 6:15 PM Result Value Ref Range Extra Tube Hold for add-ons. Light Blue Top Collection Time: 05/30/20 6:15 PM Result Value Ref Range Extra Tube Hold for add-ons. BMP Collection Time: 05/30/20 6:15 PM Result Value Ref Range Sodium 135 135 - 145 mmol/L Potassium 2.6 (CL) 3.5 - 5.1 mmol/L Chloride 96 (L) 98 - 108 mmol/L Bicarbonate 29 21 - 32 mmol/L Anion Gap 13 10 - 20 mmol/L Glucose 112 (H) 65 - 99 mg/dL BUN 8 8 - 25 mg/dL Creatinine 0.70 0.40 - 1.10 mg/dL eGFR 115 >=60 mL/min/1.73 m2 BUN/Creatinine Ratio 11.4 10.0 - 20.0 Calcium 8.6 8.4 - 10.2 mg/dL Hepatic Function Panel (LFT) Collection Time: 05/30/20 6:15 PM Result Value Ref Range Total Protein 6.5 6.0 - 8.0 g/dL Albumin 2.2 (L) 3.2 - 5.2 g/dL Total Bilirubin 0.4 0.0 - 1.3 mg/dL Bilirubin, Direct 0.1 0.0 - 0.4 mg/dL Alkaline Phosphatase 93 40 - 140 U/L AST 17 0 - 45 U/L ALT 13 (L) 14 - 65 U/L Lipase Collection Time: 05/30/20 6:15 PM Result Value Ref Range Lipase 33 (L) 73 - 393 U/L CBC Auto Differential Collection Time: 05/30/20 6:15 PM Result Value Ref Range WBC 3.31 (L) 4.50 - 11.00 K/mcL RBC 4.38 4.00 - 5.20 M/mcL Hemoglobin 13.7 12.0 - 16.0 g/dL Hematocrit 38.2 36.0 - 46.0 % MCV 87.2 80.0 - 100.0 fL MCH 31.3 26.0 - 34.0 pg MCHC 35.9 31.0 - 37.0 g/dL Platelets 381 150 - 400 K/mcL RDW - CV 13.7 11.6 - 14.8 % MPV 9.3 (L) 9.4 - 12.4 fL Neutrophils 65.2 % Lymphocytes 22.7 % Monocytes 10.9 % Eosinophils 0.6 % Basophils 0.3 % IG Percent 0.30 % Neutrophils Abs 2.16 1.70 - 7.00 K/mcL Lymphocytes Abs 0.75 (L) 0.90 - 4.00 K/mcL Monocytes Abs 0.36 0.30 - 0.90 K/mcL Eosinophils Abs 0.02 0.00 - 0.50 K/mcL Basophils Abs 0.01 0.00 - 0.30 K/mcL IG Absolute 0.01 0.00 - 0.30 K/mcL Nucleated RBC 0.0 % Nucleated RBC Abs 0.00 0.00 - 0.00 K/mcL Sedimentation Rate Collection Time: 05/30/20 6:15 PM Result Value Ref Range Sed Rate 12 0 - 20 mm/hr CRP, Inflammation Collection Time: 05/30/20 6:15 PM Result Value Ref Range CRP(Inflammation) 53.5 (H) <=10.0 mg/L EKG 12-lead Collection Time: 05/30/20 8:50 PM Result Value Ref Range Ventricular Rate 100 BPM Atrial Rate 100 BPM P-R Interval 148 ms QRS Duration 84 ms Q-T Interval 384 ms QTC Calculation (Bezet) 495 ms P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 Care Coordination 09/26/2020 [facility] Reason Onset Date Comments Care Coordination 10/08/2020 [facility] Reason Onset Date Comments Care Coordination 11/19/2020 [facility] Reason Onset Date Comments Medication Refill 01/22/2021 Reason Comments Abdominal Pain Emesis Chest Pain Specialty Diagnoses / Procedures Referred By Contac t Referred To Contact Diagnoses Crohn's disease of small and large intestines with complication (HCC) Crohn's disease of small and large intestines with complication (HCC) [K50.819] Procedures MS COLONOSCOPY FLX DX W/COLLJ SPEC WHEN PFRMD MS COLONOSCOPY W/BIOPSY SINGLE/MULTIPLE MS COLSC FLX W/RMVL OF TUMOR POLYP LESION SNARE TQ COLONOSCOPY DIAGNOSTIC Maru Maguire MD [address] [facility] [address] [place] [address] [facility] [employer] [address] [place] [address] Referral ID Status Reason Start Date Expiration Date Visits Re quested Visits Authorized [id number] 1 1 Reason Comments Abdominal Pain Vomiting Specialty Diagnoses / Procedures Referred By Contac t Referred To Contact Diagnoses Crohn's colitis, unspecified complication (HCC) Eloy Alves I, DO [address] [place] [address] [facility] [employer] [address] [place] [address] Referral ID Status Reason Start Date Expiration Date Visits Re quested Visits Authorized [id number] 1 1 Reason Comments Patient Update Reason Comments Abscess Reason Comments Cough Reason Comments Orders Reason Comments clogged line Reason Comments Vascular Access Problem Pt is about 2 we eks post bowel-resection surgery ([facility]) To ER today to troubleshoot a PICC line that won't flush. Pt requesting Cath-Juaquin to declot PICC line. Otherwise pt denies complaints. Reason Comments Medication Question Reason Comments Post Op Reason Comments Stoma Consult Reason Comments Established Patient Hospital discharge Reason Comments Established Patient Bilateral upper extr emity DVTs Reason Comments Established Patient Follow post op Reason Comments Patient Update Reason Comments Crohns Reason Comments New Patient Specialty Diagnoses / Procedures Referred By Contac t Referred To Contact Diagnoses Other urinary incontinence Procedures CONSULT TO FEMALE UROLOGY/URO GYNECOLOGY OFFICE/OUTPATIENT NEW HIGH MDM 60 MINUTES Obdulia Tejeda PA-C [address] [place] [address] Phone: tel: fax: Referral ID Status Reason Start Date Expiration Date V isits Requested Visits Authorized [id number] Closed PCP Requested Referral 09/18/2024 09/18/2025 [address] Reason Comments Schedule Surgery Reason Comments Medication Follow-up Skyrizi Reason Comments Returning Patient's Call 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 - Other Reason Comments Post Op Reason Comments Full Body Skin Check Reason Comments Established Patient right upper extremit y DVT, clotted LUE PICC line Reason Comments Results Reason Comments Patient Update Skyrizi Reason Comments Nutrition Assessment Reason Comments Orders Reason Comments Pre-Op Exam Patient Education Reason Comments Radio GI Main HB6 Specialty Diagnoses / Procedures Referred By Contac t Referred To Contact XR IMAGING Diagnoses Crohn's disease of small and large intestines with complication (HCC) Procedures XR COLON SINGLE CONTRAST RADIOLOGIC EXAM COLON SINGLE CONTRAST STUDY Elsy Rousseau DO [address] [place] [address] Phone: tel: fax: XR IMAGING [place] [phone] Referral ID Status Reason Start Date Expiration Date V isits Requested Visits Authorized [id number] Closed Auto-Generate d Referral 11/10/2024 12/10/2025 1 1 Reason Comments Hospital Admission 02/15/2025 - Reason Comments Appointment Reason Onset Date Comments SPP Inflammatory Conditions - Treatment Referral 03/02/2025 Skyrizi Insurance Authorization 03/02/2025 Prior Au th Submission Pending Reason Comments Established Patient Post Op Reason Comments Follow Up Reason Comments Insurance Authorization Additional infor mation required [id number] ([facility]) - INJECTION, RISANKIZUMAB-RZAA, INTRAVENOUS, 1 MG Reason Comments Established Patient Follow up Reason Comments Follow Up Post Op INFORMATION SOURCE (unrecogn ized section and content) DATE CREATED AUTHOR 11/03/[address] [facility] DATE CREATED AUTHOR AUTHOR'S ORGANIZ ATION 11/01/2020 [facility] DATE CREATED AUTHOR AUTHOR'S ORGANIZ ATION 01/20/2021 [facility] DATE CREATED AUTHOR AUTHOR'S ORGANIZ ATION 11/13/2021 [facility] DATE CREATED AUTHOR AUTHOR'S ORGANIZ ATION 06/12/2022 [facility] DATE CREATED AUTHOR AUTHOR'S ORGANIZ ATION 11/15/2022 [facility] DATE CREATED AUTHOR AUTHOR'S ORGANIZ ATION 12/27/[address] [facility] DATE CREATED AUTHOR AUTHOR'S ORGANIZ ATION 04/24/2024 [facility] DATE CREATED AUTHOR AUTHOR'S ORGANIZ ATION 06/05/2024 [facility] DATE CREATED AUTHOR AUTHOR'S ORGANIZ ATION 08/22/2024 [facility] DATE CREATED AUTHOR AUTHOR'S ORGANIZ ATION 09/03/2024 [facility] DATE CREATED AUTHOR AUTHOR'S ORGANIZ ATION 09/17/2024 [facility] DATE CREATED AUTHOR AUTHOR'S ORGANIZ ATION 11/29/2024 [facility] DATE CREATED AUTHOR AUTHOR'S ORGANIZ ATION 04/12/2025 [facility] Rahul Crowder PA-C - 05/30/2020 7:45 PM Joseluis Spear RN - 05/30/2020 6:03 PM Neela Gao RN - 05/30/2020 5:50 PM EST ED Notes (unrecognized secti on and content) [facility] ED Physician Note: NAME: Francine Hobson 34 y.o. CSN: [id number] PCP: Physician No Clinical Impression: 1. Hypokalemia 2. Crohn's disease with complication, unspecified gastrointestinal tract location (HCC) 3. Nausea and vomiting, intractability of vomiting not specified, unspecified vomiting type Disposition: Patient is being admitted to telemetry New Prescriptions This print group is not available in inpatient encounters. Please contact a gas collection system operator. Follow-up Information Follow-up information has not been specified. Contact information for after-discharge care Follow-up information has not been specified. History: Chief Complaint: Abdominal Pain HPI: The history was obtained from the patient. She is a 34 y.o. female who presents with a chief complaint of Abdominal Pain. Patient presents emergency department for abdominal pain, nausea, vomitings been going on for about 3 days. Patient denies fever, chills, chest pain, cough, congestion. Patient notes that she has abdominal pain that is periumbilical which feels similar to Crohn's flareups that she has had in the past. Patient notes that they typically go away with steroids. Patient notes that she is had nausea vomiting and diarrhea and has not been able to eat or drink much over the last couple of days. HPI PMHx: Past Medical History: Diagnosis Date Crohn's disease (HCC) PMSx: History reviewed. No pertinent surgical history. FAM. Hx: History reviewed. No pertinent family history. SOC. Hx: Social History Socioeconomic History Marital status: Spouse name: Not on file Number of children: Not on file Years of education: Not on file Highest education level: Not on file Occupational History Not on file Social Needs Financial resource strain: Not on file Food insecurity Worry: Not on file Inability: Not on file Transportation needs Medical: Not on file Non-medical: Not on file Tobacco Use Smoking status: Current Every Day Smoker Smokeless tobacco: Never Used Substance and Sexual Activity Alcohol use: Yes Drug use: Yes Types: Marijuana Sexual activity: Not on file Lifestyle Physical activity Days per week: Not on file Minutes per session: Not on file Stress: Not on file Relationships Social connections Talks on phone: Not on file Gets together: Not on file Attends [employer] service: Not on file Active member of club or organization: Not on file Attends meetings of clubs or organizations: Not on file Relationship status: Not on file Other Topics Concern Not on file Social History Narrative Not on file MEDs: Previous Medications Medication Sig albuterol 90 mcg/actuation inhaler Inhale 2 (two) puffs every 6 (six) hours as needed for wheezing . ALL: No Known Allergies ROS: Review of Systems Constitutional: Positive for fatigue. Negative for chills and fever. HENT: Negative for ear pain, rhinorrhea, sore throat and trouble swallowing. Respiratory: Negative for cough and shortness of breath. Cardiovascular: Negative for chest pain, palpitations and leg swelling. Gastrointestinal: Positive for abdominal pain, nausea and vomiting. Negative for blood in stool, constipation and diarrhea. Genitourinary: Negative for decreased urine volume, difficulty urinating, dysuria, flank pain, frequency, hematuria and urgency. Musculoskeletal: Negative for back pain and neck pain. Skin: Negative for color change, pallor and wound. Neurological: Negative for dizziness, syncope, light-headedness and headaches. All other systems reviewed and are negative. Positives and pertinent negatives as per HPI. All other systems were reviewed and are negative. Physical Exam: Patient Vitals for the past 24 hrs: BP Temp Temp src Pulse Resp SpO2 Height Weight 05/31/20 0020 (!) 92/53 97.9 F (36.6 C) Oral 89 14 97 % 5' 7 49.7 kg (109 lb 9.1 oz) 05/31/20 0000 (!) 83/56 (!) 101 18 97 % 05/30/20 2330 (!) 83/58 89 (!) 11 96 % 05/30/20 2300 (!) 85/61 90 16 97 % 05/30/20 2230 (!) 82/62 91 16 97 % 05/30/20 2130 90/62 92 15 97 % 05/30/20 2100 90/68 95 14 97 % 05/30/20 1953 92/61 (!) 101 18 99 % 05/30/20 1838 92/62 (!) 102 (!) 20 97 % 05/30/20 1750 101/69 97.9 F (36.6 C) Infrared (!) 125 16 99 % 5' 7 52.2 kg (115 lb) Physical Exam Vitals signs and nursing note reviewed. Constitutional: General: She is not in acute distress. Appearance: She is well-developed. She is not diaphoretic. HENT: Head: Normocephalic and atraumatic. Eyes: Pupils: Pupils are equal, round, and reactive to light. Neck: Musculoskeletal: Normal range of motion and neck supple. Cardiovascular: Rate and Rhythm: Normal rate and regular rhythm. Pulmonary: Effort: Pulmonary effort is normal. No respiratory distress. Breath sounds: Normal breath sounds. No wheezing or rales. Chest: Chest wall: No tenderness. Abdominal: General: Bowel sounds are normal. There is no distension. Palpations: Abdomen is soft. There is no mass. Tenderness: There is generalized abdominal tenderness (mild). There is no guarding or rebound. Negative signs include Silver's sign and McBurney's sign. Musculoskeletal: General: No tenderness or deformity. Skin: General: Skin is warm and dry. Coloration: Skin is not pale. Findings: No erythema or rash. Neurological: Mental Status: She is alert and oriented to person, place, and time. Psychiatric: Behavior: Behavior normal. Laboratory & Radiological Imaging (if done): Labs Reviewed BASIC METABOLIC PANEL - Abnormal; Notable for the following components: Result Value Potassium 2.6 (*) Chloride 96 (*) Glucose 112 (*) All other components within normal limits Narrative: The eGFR should be used for monitoring renal function only and not for medication dosing. HEPATIC FUNCTION PANEL - Abnormal; Notable for the following components: Albumin 2.2 (*) ALT 13 (*) All other components within normal limits LIPASE - Abnormal; Notable for the following components: Lipase 33 (*) All other components within normal limits URINALYSIS - Abnormal; Notable for the following components: Specific [place] >1.050 (*) Ketones, Urine >=80 (*) All other components within normal limits Narrative: Microscopic examination is performed on all urinalysis samples and only positive findings are reported. The test for blood on the chemical analytic portion of urinalysis may also be positive due to hemoglobinuria and myoglobinuria and if red blood cells are present they are quantified by microscopic examination. CRP, INFLAMMATION - Abnormal; Notable for the following components: CRP(Inflammation) 53.5 (*) All other components within normal limits CBC WITH AUTO DIFFERENTIAL - Abnormal; Notable for the following components: WBC 3.31 (*) MPV 9.3 (*) Lymphocytes Abs 0.75 (*) All other components within normal limits COVID-19/INFLUENZA A,B MOLECULAR - Normal Narrative: This test was performed under the FDA's Emergency Use Authorization (EUA). Testing was performed using the Luis fer SARS-CoV-2 & Influenza A/B Nucleic Acid Test on the fer Yamini System. This test has not been approved for use in asymptomatic patients and its performance in this patient population has not been evaluated. Negative results do not rule out the presence of SARS-CoV-2, influenza A, and/or influenza B. Fact sheets for the EUA can be found at the following links: For Healthcare Providers: https://www.fda.gov/media/368422/download For Patients: https://www.fda.gov/media/627888/download SEDIMENTATION RATE - Normal URINE AEROBIC CULTURE CLOSTRIDIUM DIFFICILE TESTING STOOL/GI PCR PANEL CBC AND DIFFERENTIAL Narrative: The following orders were created for panel order CBC w/ Diff. Procedure Abnormality Status --------- ------ CBC Auto Differential[[id number]] Abnormal Final result Please view results for these tests on the individual orders. COMPREHENSIVE METABOLIC PANEL MAGNESIUM LEVEL PHOSPHORUS CBC AND DIFFERENTIAL Narrative: The following orders were created for panel order CBC and Differential. Procedure Abnormality Status --------- ------ CBC Auto Differential[[id number]] Please view results for these tests on the individual orders. PT/INR BILIRUBIN, DIRECT CBC WITH AUTO DIFFERENTIAL CT Abdomen Pelvis With IV Contrast Only Final Result 1. Findings consistent with extensive active Crohn's disease in the small bowel extending to the terminal ileum but no evidence of fistula or abscess. 2. Moderate ascites and mesenteric edema. 3. 13 mm right adnexal cyst, likely a dominant ovarian follicle. [email or web address] Workstation ID: [id number] Procedures: Procedures ED Course/ Medical Decision Making: Patient has probable active Crohn's disease with no sign of fistula or abscess. No peritoneal findings on exam. Patient does have nausea and vomiting that improved only mildly with IV medications in the ED. Patient has hypokalemia with potassium of 2.6. I spoke with the hospitalist service who agreed admit the patient for further evaluation. . . Rahul Crowder PA-C ED Physician Track Walker [facility] Emergency Department Rahul Crowder PA-C 05/31/20 0111 Started having flare up sx last week started on baby food to reduce sx and see if it would pass. 3 days ago severe abd pain cramping diarrhea and vomiting. Unable to keep water down at this time. Patient reports that she has a history of Chron's and is having a flare up. documented in this encounter Care Teams (unrecognized sec tion and content) Inside Sales Advisor Relationship Specialty Start Date End Date RashidBernaDO [address] [place] [address] Home Parenteral Nutrition Provider Gastroenterology 08/08/24 Inside Sales Advisor Relationship Specialty Start Date End Date Dalia Apple MD [address] [place] [address] PCP - General Family Medicine 12/27/23 Inside Sales Advisor Relationship Specialty Start Date End Date No Pcp, [place] [address] PCP - General Family Medicine 07/05/21 Team Status: Inactive Member Role Status Dates Maru Maguire MD Attending Provider Active Star t: August 14, 2024 End: August 14, 2024 Inside Sales Advisor Relationship Specialty Start Date End Date Dalia Apple DO [address] [address] PCP - General Family Medicine 07/22/24 Team Status: Active Member Role Status Dates Dalia Apple DO Primary Care Provider Active Team Status: Active Member Role Status Dates Dalia Apple DO Primary Care Provider Active Start: December 21, 2023 IAN Foley Attending Provider Active S tart: December 21, 2023 Team Status: Inactive Member Role Status Dates Dalia Apple DO Primary Care Provider Active Start: January 19, 2024 End: January 19, 2024 Jennifer Brody MD Attending Provider Active Start: January 19, 2024 End: January 19, 2024 Team Status: Active Member Role Status Dates Dalia Apple DO Primary Care Provider Active Team Status: Inactive Member Role Status Dates PHYSICIAN NO FAMILY Primary Care Provider Active Ean Jacques DO Emergency Provider Active Team Status: Inactive Member Role Status Dates Dalia Apple DO Primary Care Provider, Shanique gregory Active Team Status: Inactive Member Role Status Dates Dalia Apple DO Primary Care Provider Active Arthur Mcclain DO Attending Provider Active Team Status: Active Member Role Status Dates PHYSICIAN NO FAMILY Primary Care Provider Active Team Status: Inactive Member Role Status Dates PHYSICIAN NO FAMILY Primary Care Provider Active Ean Jacques , DO Emergency Provider Active Goals (unrecognized section and content) Goals may be documented in a n alternate section Ordered Prescriptions (unrec ognized section and content) Prescription Sig Dispensed Refills Start Date End Da te ondansetron (ZOFRAN-ODT) 4 MG disintegrating tablet Take 1 tablet by mouth 3 times daily as needed for Nausea or Vomiting 21 tablet 0 11/22/2023 predniSONE (DELTASONE) 20 MG tablet Take 2 tablets by mouth daily for 3 days, THEN 1.5 tablets daily for 3 days, THEN 1 tablet daily for 3 days, THEN 0.5 tablets daily for 3 days. 15 tablet 0 11/22/2023 12/04/2023 Prescription Sig Dispensed Refills Start Date End Da te ondansetron (ZOFRAN) 4 MG tablet Take 1 tablet by mouth every 12 hours as needed for Nausea or Vomiting 10 tablet 05/09/2024 docusate sodium (COLACE) 100 MG capsule Take 1 capsule by mouth 2 times daily for 5 days 10 capsule 05/09/2024 05/14/2024 oxyCODONE-acetaminophen (PERCOCET) 5-325 MG per tabletIndications:Crohn 's disease of colon with abscess (HCC),Intra-abdominal abscess (HCC),Crohn's colitis, other complication (HCC) Take 1 tablet by mouth every 6 hours as needed for Pain for up to 5 days. Intended supply: 3 days. Take lowest dose possible to manage pain Max Daily Amount: 4 tablets 12 tablet 05/09/2024 05/14/2024 predniSONE (DELTASONE) 20 MG tablet Take 1 tablet by mouth 2 times daily for 5 days 10 tablet 1 05/09/2024 05/14/2024 amoxicillin-clavulanate (AUGMENTIN) 875-125 MG per tablet Take 1 tablet by mouth 2 times daily for 14 days 28 tablet 05/09/2024 05/23/2024 pantoprazole (PROTONIX) 40 MG tablet Take 1 tablet by mouth every morning (before breakfast) 30 tablet 3 05/10/2024 dicyclomine (BENTYL) 10 MG capsule Take 1 capsule by mouth 3 times daily 120 capsule 3 05/09/2024 amitriptyline (ELAVIL) 25 MG tablet Take 1 tablet by mouth nightly 30 tablet 3 05/09/2024 Prescription Sig Dispensed Refills Start Date End Da te midodrine (PROAMATINE) 10 MG tablet Take 1 tablet by mouth 3 times daily (with meals) 90 tablet 3 07/30/2024 ertapenem (INVANZ) infusion Infuse 1,000 mg intravenously every 24 hours for 28 days 28 days then get a repeat CTA ;look for resolution of the abscess Cbc diff creat weekly - no ;line draws 28 g 07/29/2024 08/26/2024 Scheduled Active and Recently Administ ered Medications (unrecognized section and content) Medication Order 11/20/2023 11/21/2023 11/22/2023 dexAMETHasone (DECADRON) injection 4 mg (COMPLETED) 4 mg, IntraVENous, ONCE, On Wed11/22/23 at 0515, For 1 dose 0508 (Given - Provid er: Sven Hernandez RN) famotidine (PEPCID) injection 20 mg (COMPLETED) 20 mg, IntraVENous, NOW, 1 dose, On Wed11/22/23 at 0515, IV Push over minimum of 2 minutes - Dilute with 10 mL NS 0509 (Given - Provid er: Sven Hernandez RN) fentaNYL (SUBLIMAZE) injection 50 mcg (COMPLETED) 50 mcg, IntraVENous, ONCE, 1 dose, On Wed11/22/23 at 0515, If oral and IV narcotics ordered, use oral first and only use IV if oral is ineffective or cannot take oral. Do Not give oral and IV within 1 hour of each other unless specifically ordered. 0508 (Given - Provid er: Sven Hernandez RN) lactated ringers bolus 1,000 mL (COMPLETED) 1,000 mL, IntraVENous, at 1,000 mL/hr, Administer over 60 Minutes, ONCE, On Wed11/22/23 at 0545, For 1 dose 0546 (New Bag - Prov ider: Sven Hernandez RN)0650 (Stopped - Provider: Sven Hernandez RN) ondansetron (ZOFRAN) injection 4 mg (COMPLETED) 4 mg, IntraVENous, ONCE, 1 dose, On Wed11/22/23 at 0500 0456 (Given - Provid er: Sven Hernandez RN) PRN Medication Order 11/20/2023 11/21/2023 11/22/2023 iopamidol (ISOVUE-370) 76 % injection 75 mL (COMPLETED) 75 mL, IntraVENous, IMG ONCE PRN, 1 dose, Starting on Wed11/22/23 at 0600, Until Wed11/22/23 at 0630, Other 0630 (Given - Provid er: Nigel Pta) ondansetron (ZOFRAN) injection 4 mg 4 mg, IntraVENous, PRN, Starting on Wed11/22/23 at 0502, Until Discontinued, Nausea, Vomiting Scheduled Medication Order 05/07/2024 05/08/2024 05/09/2024 amitriptyline (ELAVIL) tablet 25 mg 25 mg, Oral, NIGHTLY, First dose on 05/07/24 at 2100, Until Discontinued 2040 (Given - Provider: Edil Castellanos RN) 2050 (Given - Provider: Oniel Marcos RN) 2100 (Due) citalopram (CELEXA) tablet 40 mg 40 mg, Oral, DAILY, First dose on Wed05/01/24 at 2100, Until Discontinued 0748 (Given - Provider: Ami Plaza RN) 0950 (Given - Provider: Bernadette Reece) 0821 (Given - Provider: Angelina Silver) dicyclomine (BENTYL) capsule 10 mg 10 mg, Oral, 3 TIMES DAILY, First dose (after last modification) on 05/07/24 at 1030, Until Discontinued 1126 (Given - Provider: Ami Plaza RN)1446 (Given - Provider: Ami Plaza RN)2040 (Given - Provider: Edil Castellanos RN) 0953 (Given - Provider: Bernadette Reece)1414 (Given - Provider: Marixa Jha RN)2050 (Given - Provider: Oniel Marcos RN) 0821 (Given - Provider: Angelina Silver)1323 (Given - Provider: Ami Peña RN)2100 (Due) iron sucrose (VENOFER) 200 mg in sodium chloride 0.9 % 100 mL IVPB 200 mg, IntraVENous, at 440 mL/hr, Administer over 15 Minutes, EVERY 24 HOURS, First dose on Wed05/08/24 at 1300, For 3 doses 1413 (New Bag - Provider: Marixa Jha RN)1440 (Stopped - Provider: Marixa Jha RN) 1408 (New Bag - Provider: Ami Peña RN)1449 (Stopped - Provider: Naomi Navarro RN) methylPREDNISolone sodium succ (SOLU-MEDROL) 40 mg in sterile water 1 mL injection 40 mg, IntraVENous, DAILY, First dose on Wed05/09/24 at 1500, Reconstitute each 40 mg vial with 1 mL of diluent. 1448 (Given - Provider: Ami Peña RN) pantoprazole (PROTONIX) tablet 40 mg 40 mg, Oral, DAILY BEFORE BREAKFAST, First dose on Wed05/07/24 at 0700, Until Discontinued, Do not crush or break. 0748 (Given - Provider: Ami Plaza RN) 0502 (Given - Provider: Edil Castellanos, WAQAS) 0521 (Given - Provider: Oniel Marcos RN) piperacillin-tazobactam (ZOSYN) 3375 mg in dextrose 50 mL IVPB (premix) 3,375 mg, IntraVENous, EVERY 8 HOURS, First dose (after last reorder) on Wed05/01/24 at 2200, Until Discontinued, Antimicrobial Indications: Intra-Abdominal Infection 0130 (New Bag - Provider: Christianne Gill RN)0551 (Stopped - Provider: Christianne Gill RN)0854 (New Bag - Provider: Ami Plaza RN)1119 (Stopped - Provider: Ami Plaza RN)1254 (Stopped - Provider: Ami Plaza RN)1717 (New Bag - Provider: Ami Plaza RN)1852 (Rate/Dose Verify - Provider: Ami Plaza RN)2117 (Stopped - Provider: Edil Castellanos RN) 0204 (New Bag - Provider: Edil Castellanos RN)0458 (Rate/Dose Verify - Provider: Edil Castellanos, WAQAS)0604 (Stopped - Provider: Edil Castellanos, WAQAS)0958 (New Bag - Provider: Bernadette Reece)1401 (Stopped - Provider: Marixa Jha RN)1701 (New Bag - Provider: Marixa Jha RN)2102 (Stopped - Provider: Oniel Marcos RN) 0155 (New Bag - Provider: Oniel Marcos RN)0557 (Stopped - Provider: Oniel Marcos RN)0935 (New Bag - Provider: Angelina Silver)1410 (Stopped - Provider: Ami Peña RN)1730 (Due) sodium chloride flush 0.9 % injection 5-40 mL 5-40 mL, IntraVENous, EVERY 12 HOURS SCHEDULED (2 times per day), First dose on Wed05/01/24 at 2100, Until Discontinued, For Line Patency: Peripheral IV = 5 mL; Midline or Central Line = 10 mL/lumen. If following IV push medication, administer flush at same rate as the IV push. Flush volume is determined by type of infusion therapy being given. For non-viscous solutions use: Peripheral IV = 5 mL Midline or Central Line = 10 mL/lumen For viscous solutions (i.e. blood components, parenteral nutrition, contrast media, or after obtaining blood sample) use: Peripheral IV = 10 mL Midline or Central Line = 20 mL/lumen 0749 (Not Given - Provider: Ami Plaza RN - Reason: IV Fluid Infusing)2044 (Not Given - Provider: Edil Castellanos RN - Reason: IV Fluid Infusing) 0749 (Given - Provider: Marixa Jha RN)2005 (Given - Provider: Oniel Marcos RN) 0823 (Given - Provider: Angelina Silver)2100 (Due) vitamin B-12 (CYANOCOBALAMIN) tablet 1,000 mcg 1,000 mcg, Oral, DAILY, 7 doses, First dose on Wed05/08/24 at 1300, Last dose on Wed05/14/24 at 0900 1413 (Given - Provider: Marixa Jha RN) 0823 (Given - Provider: Angelina Silver) Continuous Medication Order 05/07/2024 05/08/2024 05/09/2024 0.9 % sodium chloride infusion (CANCELED) IntraVENous, at 50 mL/hr, CONTINUOUS, Starting on Wed05/01/24 at 2100 0145 (New Bag - Provider: Christianne Gill, WAQAS)0153 (Restarted - Provider: Christianne Gill RN)1852 (Rate/Dose Verify - Provider: Ami Plaza RN)2045 (New Bag - Provider: Edil Castellanos, WAQAS) 0458 (Rate/Dose Verify - Provider: Edil Castellanos, WAQAS) 1717 (Stopped - Provider: Naomi Navarro RN) PRN Medication Order 05/07/2024 05/08/2024 05/09/2024 0.9 % sodium chloride infusion IntraVENous, at 5-250 mL/hr, PRN, if patient receiving piggyback infusions and maintenance fluids are not ordered OR KVO fluids to protect IV site / prevent frequent line interruptions/ long duration, Starting on Wed05/01/24 at 2049, For piggyback infusion, administer at same rate as piggyback for a total of 25 mL. Enter 25 mL into dose field and piggyback rate into rate field of order. If piggyback is infusing at a rate less than 100 mL/hr, enter 25 mL into dose field and 100 mL/hr into rate field of order. For KVO fluids, enter rate of 20 mL/hr or less into rate field of order. 0956 (New Bag - Provider: Bernadette Reece) 1717 (Stopped - Provider: Naomi Navarro RN) acetaminophen (TYLENOL) suppository 650 mg(Linked Group 1) 650 mg, Rectal, EVERY 6 HOURS PRN, Starting on Wed05/01/24 at 2049, Until Discontinued, Pain Mild (1-3), Fever, For temp greater than 100.4 F (38 C), Administer if oral route cannot be used. acetaminophen (TYLENOL) tablet 650 mg(Linked Group 1) 650 mg, Oral, EVERY 6 HOURS PRN, Starting on Wed05/01/24 at 2049, Until Discontinued, Pain Mild (1-3), Fever, For temp greater than 100.4 F (38 C), Maximum dose of acetaminophen is 4000 mg from all sources in 24 hours. bisacodyl (DULCOLAX) suppository 10 mg 10 mg, Rectal, DAILY PRN, Starting on Wed05/01/24 at 2049, Until Discontinued, Constipation, Second line therapy for constipation, After 24 hours, if no result from first line PRN therapy, give second line therapy in combination with first line therapy. diazePAM (VALIUM) tablet 5 mg 5 mg, Oral, EVERY 6 HOURS PRN, Starting on Wed05/03/24 at 1021, Until Discontinued, Anxiety, Agitation, Muscle spasms 2040 (Given - Provider: Edil Castellanos RN) 112 (Given - Provider: Marixa Jha RN)2049 (Given - Provider: Oniel Marcos RN) 121 (Given - Provider: Angelina Silver) fentaNYL (SUBLIMAZE) injection 75 mcg 75 mcg, IntraVENous, EVERY 2 HOURS PRN, Starting on Wed05/01/24 at 2103, Until Discontinued, Pain Moderate (4-6), Pain Severe (7-10), If oral and IV narcotics ordered, use oral first and only use IV if oral is ineffective or cannot take oral. Do Not give oral and IV within 1 hour of each other unless specifically ordered. 0201 (Given - Provider: Christianne Gill RN)0556 (Given - Provider: Christianne Gill RN)0903 (Given - Provider: Ami Plaza RN)1126 (Given - Provider: Ami Plaza RN)1508 (Given - Provider: Ami Plaza RN)1816 (Given - Provider: Ami Plaza RN)2039 (Given - Provider: Edil Castellanos RN) 0206 (Given - Provider: Edil Castellanos RN)0452 (Given - Provider: Edil Castellanos RN)0747 (Given - Provider: Marixa Jha RN)1026 (Given - Provider: Marixa Jha RN)1418 (Given - Provider: Marixa Jha RN)1657 (Given - Provider: Marixa Jha RN)2000 (Given - Provider: Oniel Marcos RN)2333 (Given - Provider: Oniel Marcos RN) 0239 (Given - Provider: Oniel Marcos RN)0522 (Given - Provider: Oniel Marcos RN)0822 (Given - Provider: Angelina Silver)1213 (Given - Provider: Angelina Silver)1448 (Given - Provider: Ami Peña, WAQAS) LORazepam (ATIVAN) injection 0.5 mg 0.5 mg, IntraVENous, EVERY 8 HOURS PRN, Starting on Wed05/01/24 at 2056, Until Discontinued, Anxiety, Immediately prior to intravenous use, lorazepam Injection must be diluted with at least an equal volume of compatible solution (NS or D5W). ondansetron (ZOFRAN) injection 4 mg(Linked Group 2) 4 mg, IntraVENous, EVERY 6 HOURS PRN, Starting on Wed05/01/24 at 2050, Until Discontinued, Nausea, Vomiting, Administer if oral route cannot be used. 0854 (Given - Provider: Ami Plaza RN)1816 (Given - Provider: Ami Plaza RN) 1459 (See Alternative - Provider: Ami Peña, RN) ondansetron (ZOFRAN-ODT) disintegrating tablet 4 mg(Linked Group 2) 4 mg, Oral, EVERY 8 HOURS PRN, Starting on Wed05/01/24 at 2050, Until Discontinued, Nausea, Vomiting 0854 (See Alternative - Provider: Ami Plaza RN)1816 (See Alternative - Provider: Ami Plaza RN) 1459 (Given - Provider: Ami Peña, RN) polyethylene glycol (GLYCOLAX) packet 17 g 17 g, Oral, DAILY PRN, Starting on Wed05/01/24 at 2050, Until Discontinued, Constipation, First line therapy for constipation potassium bicarb-citric acid (EFFER-K) effervescent tablet 40 mEq(Linked Group 3) 40 mEq, Oral, PRN, Starting on Wed05/01/24 at 2050, Until Discontinued, Per Potassium Replacement Protocol, Administer as alternative if patient unable to tolerate oral tablet. K Lab Replacement Action 3.1 to 3.5 40 mEq ORAL x 1 Under 3.1 Refer to IV replacement protocol Recheck K level in AM. Protocol not for use in patients with CrCl less than 30 mL/min. Do not chew or crush. Dissolve flavored tablets completely in 3 to 4 ounces of cold water; unflavored tablets may be dissolved in 3 to 4 ounces of cold juice. Patient to sip slowly over a 5 to 10 minute period. May further dilute if GI adverse effects occur. 1851 (See Alternative - Provider: Ami Plaza RN) 457 (See Alternative - Provider: Edil Castellanos, WAQAS) potassium chloride (KLOR-CON M) extended release tablet 40 mEq(Linked Group 3) 40 mEq, Oral, PRN, Starting on Wed05/01/24 at 2049, Until Discontinued, Potassium Replacement, May give alternative linked oral order (ordered as effervescent, packet, or liquid solution) if patient unable to tolerate tablet. K Lab Replacement Action 3.1 to 3.5 40 mEq ORAL x 1 Under 3.1 Refer to IV replacement protocol Recheck K level in AM. Protocol not for use in patients with CrCl less than 30 mL/min. Do not crush, chew, or suck on tablet. Tablet may also be broken in half and each half swallowed separately. 1851 (See Alternative - Provider: Ami Plaza RN) 457 (See Alternative - Provider: Edil Castellanos, WAQAS) potassium chloride 10 mEq/100 mL IVPB (Peripheral Line)(Linked Group 3) 10 mEq, IntraVENous, PRN, Starting on Wed05/01/24 at 2049, Until Discontinued, at 100 mL/hr, Potassium Replacement, K Lab Replacement Action 2.7 to 3.0 10 mEq IVPB x 6 doses (60 mEq Total) Under 2.7 CALL PROVIDER and administer 10 mEq IVPB x 6 doses (60 mEq Total) Infuse at 10 mEq/hr. Repeat Potassium lab 1 hour after final administration. Protocol not for use in patients with CrCl less than 30 mL/min. 1851 (Rate/Dose Verify - Provider: Ami Plaza RN) 457 (Rate/Dose Verify - Provider: Edil Castellanos, WAQAS) sodium chloride flush 0.9 % injection 5-40 mL 5-40 mL, IntraVENous, PRN, Starting on Wed05/01/24 at 2049, Until Discontinued, Line Care, After every IV line use, For Line Patency: Peripheral IV = 5 mL; Midline or Central Line = 10 mL/lumen. If following IV push medication, administer flush at same rate as the IV push. Flush volume is determined by type of infusion therapy being given. For non-viscous solutions use: Peripheral IV = 5 mL Midline or Central Line = 10 mL/lumen For viscous solutions (i.e. blood components, parenteral nutrition, contrast media, or after obtaining blood sample) use: Peripheral IV = 10 mL Midline or Central Line = 20 mL/lumen Linked Groups Order Group 1: acetaminophen (TYLENOL) tablet 650 mgJump to med 650 mg, Oral, EVERY 6 HOURS PRN, Starting on Wed05/01/24 at 2049, Until Discontinued, Pain Mild (1-3), Fever, For temp greater than 100.4 F (38 C), Maximum dose of acetaminophen is 4000 mg from all sources in 24 hours. Or acetaminophen (TYLENOL) suppository 650 mgJump to med 650 mg, Rectal, EVERY 6 HOURS PRN, Starting on Wed05/01/24 at 2049, Until Discontinued, Pain Mild (1-3), Fever, For temp greater than 100.4 F (38 C), Administer if oral route cannot be used. Group 2: ondansetron (ZOFRAN-ODT) disintegrating tablet 4 mgJump to med 4 mg, Oral, EVERY 8 HOURS PRN, Starting on Wed05/01/24 at 2049, Until Discontinued, Nausea, Vomiting Or ondansetron (ZOFRAN) injection 4 mgJump to med 4 mg, IntraVENous, EVERY 6 HOURS PRN, Starting on Wed05/01/24 at 2049, Until Discontinued, Nausea, Vomiting, Administer if oral route cannot be used. Group 3: potassium chloride (KLOR-CON M) extended release tablet 40 mEqJump to med 40 mEq, Oral, PRN, Starting on Wed05/01/24 at 2049, Until Discontinued, Potassium Replacement, May give alternative linked oral order (ordered as effervescent, packet, or liquid solution) if patient unable to tolerate tablet. K Lab Replacement Action 3.1 to 3.5 40 mEq ORAL x 1 Under 3.1 Refer to IV replacement protocol Recheck K level in AM. Protocol not for use in patients with CrCl less than 30 mL/min. Do not crush, chew, or suck on tablet. Tablet may also be broken in half and each half swallowed separately. Or potassium bicarb-citric acid (EFFER-K) effervescent tablet 40 mEqJump to med 40 mEq, Oral, PRN, Starting on Wed05/01/24 at 2049, Until Discontinued, Per Potassium Replacement Protocol, Administer as alternative if patient unable to tolerate oral tablet. K Lab Replacement Action 3.1 to 3.5 40 mEq ORAL x 1 Under 3.1 Refer to IV replacement protocol Recheck K level in AM. Protocol not for use in patients with CrCl less than 30 mL/min. Do not chew or crush. Dissolve flavored tablets completely in 3 to 4 ounces of cold water; unflavored tablets may be dissolved in 3 to 4 ounces of cold juice. Patient to sip slowly over a 5 to 10 minute period. May further dilute if GI adverse effects occur. Or potassium chloride 10 mEq/100 mL IVPB (Peripheral Line)Jump to med 10 mEq, IntraVENous, PRN, Starting on Wed05/01/24 at 2049, Until Discontinued, at 100 mL/hr, Potassium Replacement, K Lab Replacement Action 2.7 to 3.0 10 mEq IVPB x 6 doses (60 mEq Total) Under 2.7 CALL PROVIDER and administer 10 mEq IVPB x 6 doses (60 mEq Total) Infuse at 10 mEq/hr. Repeat Potassium lab 1 hour after final administration. Protocol not for use in patients with CrCl less than 30 mL/min. Scheduled Medication Order 06/03/2024 06/04/2024 06/05/2024 sodium chloride flush 0.9 % injection 5-40 mL 5-40 mL, IntraVENous, EVERY 12 HOURS SCHEDULED (2 times per day), First dose on Wed06/05/24 at 0900, Until Discontinued, For Line Patency: Peripheral IV = 5 mL; Midline or Central Line = 10 mL/lumen. If following IV push medication, administer flush at same rate as the IV push. Flush volume is determined by type of infusion therapy being given. For non-viscous solutions use: Peripheral IV = 5 mL Midline or Central Line = 10 mL/lumen For viscous solutions (i.e. blood components, parenteral nutrition, contrast media, or after obtaining blood sample) use: Peripheral IV = 10 mL Midline or Central Line = 20 mL/lumen, Pre-op (day of surgery) 0900 (Due)2100 (Due) Continuous Medication Order 06/03/2024 06/04/2024 06/05/2024 0.9 % sodium chloride infusion IntraVENous, at 125 mL/hr, CONTINUOUS, Starting on Wed06/05/24 at 0900, Pre-op (day of surgery) 0900 (Due) PRN Medication Order 06/03/2024 06/04/2024 06/05/2024 0.9 % sodium chloride infusion IntraVENous, at 5-250 mL/hr, PRN, if patient receiving piggyback infusions and maintenance fluids are not ordered OR KVO fluids to protect IV site / prevent frequent line interruptions/ long duration, Starting on Wed06/05/24 at 0836, For piggyback infusion, administer at same rate as piggyback for a total of 25 mL. Enter 25 mL into dose field and piggyback rate into rate field of order. If piggyback is infusing at a rate less than 100 mL/hr, enter 25 mL into dose field and 100 mL/hr into rate field of order. For KVO fluids, enter rate of 20 mL/hr or less into rate field of order., Pre-op (day of surgery) 1117 (Stopped - Prov ider: Sherly Amin RN) lidocaine PF 1 % injection 1 mL (COMPLETED) 1 mL, IntraDERmal, ONCE PRN, 1 dose, Starting on Wed06/05/24 at 0836, Until Wed06/05/24 at 0905, IV start, Pre-op (day of surgery) 09 (Given - Provid er: Demian Romero RN) sodium chloride flush 0.9 % injection 5-40 mL 5-40 mL, IntraVENous, PRN, Starting on Wed06/05/24 at 0836, Until Discontinued, Line Care, After every IV line use, For Line Patency: Peripheral IV = 5 mL; Midline or Central Line = 10 mL/lumen. If following IV push medication, administer flush at same rate as the IV push. Flush volume is determined by type of infusion therapy being given. For non-viscous solutions use: Peripheral IV = 5 mL Midline or Central Line = 10 mL/lumen For viscous solutions (i.e. blood components, parenteral nutrition, contrast media, or after obtaining blood sample) use: Peripheral IV = 10 mL Midline or Central Line = 20 mL/lumen, Pre-op (day of surgery) 09 (Given - Provid er: Demian Romero RN) Scheduled Medication Order 07/28/2024 07/29/2024 07/30/2024 citalopram (CELEXA) tablet 40 mg 40 mg, Oral, DAILY, First dose on Wed07/19/24 at 2100, Until Discontinued 0843 (Given - Provider: Pita Hare RN) 0811 (Given - Provider: Pita Hare RN) 0900 (Given - Provider: Dhara Shelby RN) enoxaparin (LOVENOX) injection 40 mg 40 mg, SubCUTAneous, DAILY, First dose on Wed07/20/24 at 0900, Until Discontinued, Indication of Use: Treatment-DVT/PE, Administer by deep subCUTAneous injection with pt lying down. Alternate injection sites on abdominal wall. Do not rub site after injection. Check with provider prior to any invasive procedure. 0843 (Not Given - Provider: Pita Hare RN - Reason: Patient/family refused) 0811 (Not Given - Provider: Pita Hare RN - Reason: Patient/family refused) 0846 (Not Given - Provider: Dhara Shelby RN - Reason: Patient/family refused) ertapenem (INVanz) 1,000 mg in sodium chloride (PF) 0.9 % 10 mL IV syringe (COMPLETED) 1,000 mg, IntraVENous, EVERY 24 HOURS, First dose (after last modification) on Wed07/30/24 at 1000, For 1 dose, Administer as slow IV Push over 5 mins (2mL/min) Reconstitute 1000 mg vial with 10 mL of 0.9% sodium chloride to produce a 100mg/mL solution. DO NOT RECONSTITUTE WITH DEXTROSE CONTAINING DILUENT. ADMINISTER SLOW IV PUSH OVER 5 MINUTES 1040 (Given - Provider: Dhara Shelby RN - Comment: med not available) ertapenem (INVanz) 1,000 mg in sodium chloride (PF) 0.9 % 10 mL IV syringe (COMPLETED) 1,000 mg, IntraVENous, EVERY 24 HOURS, First dose on Wed07/29/24 at 1515, For 1 dose, Administer as slow IV Push over 5 mins (2mL/min) Reconstitute 1000 mg vial with 10 mL of 0.9% sodium chloride to produce a 100mg/mL solution. DO NOT RECONSTITUTE WITH DEXTROSE CONTAINING DILUENT. ADMINISTER SLOW IV PUSH OVER 5 MINUTES 1802 (Given - Provider: Pita Hare RN) fat emulsion (INTRALIPID/NUTRILIPID) 20 % infusion 250 mL 250 mL, IntraVENous, at 21 mL/hr, Administer over 12 Hours, DAILY, First dose on Wed07/23/24 at 1800, Use 1.2 micro filter. USE CAUTION IF PATIENT USING PROPOFOL. 0707 (Stopped - Provider: Nena Steve RN)1753 (New Bag - Provider: Pita Hare RN) 0616 (Stopped - Provider: Nena Steve RN)1818 (New Bag - Provider: Pita Hare RN) 0621 (Stopped - Provider: Elizabeth Read RN)1800 (Due) fentaNYL (SUBLIMAZE) injection 25 mcg (COMPLETED) 25 mcg, IntraVENous, ONCE, 1 dose, On Wed07/28/24 at 1745, If oral and IV narcotics ordered, use oral first and only use IV if oral is ineffective or cannot take oral. Do Not give oral and IV within 1 hour of each other unless specifically ordered. 173 (Given - Provider: Pita Hare RN) fentaNYL (SUBLIMAZE) injection 25 mcg (COMPLETED) 25 mcg, IntraVENous, ONCE, 1 dose, On Wed07/28/24 at 2015, If oral and IV narcotics ordered, use oral first and only use IV if oral is ineffective or cannot take oral. Do Not give oral and IV within 1 hour of each other unless specifically ordered. 2000 (Given - Provider: Nena Steve RN) ketorolac (TORADOL) injection 15 mg (COMPLETED) 15 mg, IntraVENous, ONCE, 1 dose, On Wed07/28/24 at 1745, Do not administer for more than 5 days 1736 (Given - Provider: Pita Hare RN) midodrine (PROAMATINE) tablet 10 mg 10 mg, Oral, 3 TIMES DAILY WITH MEALS, First dose (after last modification) on Wilma 07/27/24 at 1200, Until Discontinued, Do not give after 1800 or within 4 hrs of bedtime. 0843 (Given - Provider: Pita Hare RN)1242 (Given - Provider: Pita Hare RN)1646 (Given - Provider: Pita Hare RN) 0811 (Given - Provider: Pita Hare RN)1218 (Given - Provider: Pita Hare RN)1802 (Given - Provider: Pita Hare RN) 0901 (Given - Provider: Dhara Shelby RN)1200 (Due)1700 (Due) midodrine (PROAMATINE) tablet 10 mg (COMPLETED) 10 mg, Oral, Once, 1 dose, On 07/29/24 at 0630, Do not give after 1800 or within 4 hrs of bedtime. 0611 (Given - Provider: Nena Steve RN) pantoprazole (PROTONIX) 40 mg in sodium chloride (PF) 0.9 % 10 mL injection 40 mg, IntraVENous, DAILY, First dose on Wilma 07/20/24 at 0900, Reconstitute each 40 mg vial with 10 mL of 0.9% sodium chloride and administer each 40 mg vial over at least 2 minutes. 0838 (Given - Provider: Pita Hare RN) 0811 (Given - Provider: Pita Hare RN) 0901 (Given - Provider: Dhara Shelby RN) piperacillin-tazobactam (ZOSYN) 3,375 mg in sodium chloride 0.9 % 50 mL IVPB (mini-bag) (CANCELED) 3,375 mg, IntraVENous, EVERY 8 HOURS, First dose on Wilma 07/20/24 at 0915, Until Discontinued, Antimicrobial Indications: Intra-Abdominal Infection 0110 (New Bag - Provider: Nena Steve RN)0512 (Stopped - Provider: Nena Steve RN)1001 (New Bag - Provider: Pita Hare RN)1401 (Stopped - Provider: Pita Hare RN)1742 (New Bag - Provider: Pita Hare RN)2222 (Stopped - Provider: Nena Steve RN) 0155 (New Bag - Provider: Nena Steve RN)0616 (Stopped - Provider: Nena Steve RN)0930 (New Bag - Provider: Pita Hare RN)1330 (Stopped - Provider: Pita Hare RN) sodium chloride 0.9 % bolus 500 mL (COMPLETED) 500 mL (9.54 mL/kg), IntraVENous, at 247.9 mL/hr, Administer over 121 Minutes, ONCE, On 07/29/24 at 0230, For 1 dose 0223 (New Bag - Provider: Nena Steve RN)0447 (Stopped - Provider: Nena Steve RN) sodium chloride flush 0.9 % injection 5-40 mL 5-40 mL, IntraVENous, EVERY 12 HOURS SCHEDULED (2 times per day), First dose on Wed07/19/24 at 2100, Until Discontinued, For Line Patency: Peripheral IV = 5 mL; Midline or Central Line = 10 mL/lumen. If following IV push medication, administer flush at same rate as the IV push. Flush volume is determined by type of infusion therapy being given. For non-viscous solutions use: Peripheral IV = 5 mL Midline or Central Line = 10 mL/lumen For viscous solutions (i.e. blood components, parenteral nutrition, contrast media, or after obtaining blood sample) use: Peripheral IV = 10 mL Midline or Central Line = 20 mL/lumen 0844 (Not Given - Provider: Pita Hare RN - Reason: IV Fluid Infusing)2007 (Not Given - Provider: Nena Steve RN - Reason: IV Fluid Infusing) 0812 (Not Given - Provider: Pita Hare RN - Reason: IV Fluid Infusing)1926 (Given - Provider: Elizabeth Read, WAQAS) 0846 (Not Given - Provider: Dhara Shelby RN - Reason: Order parameters not met)2100 (Due) Continuous Medication Order 07/28/2024 07/29/2024 07/30/2024 0.9 % sodium chloride infusion (CANCELED) IntraVENous, at 100 mL/hr, CONTINUOUS, Starting on Wed07/28/24 at 1315 1253 (New Bag - Provider: Pita Hare RN)2258 (New Bag - Provider: Nena Steve RN) 0435 (New Bag - Provider: Nena Steve RN)1817 (New Bag - Provider: Pita Hare RN) 0331 (New Bag - Provider: Elizabeth Read RN)0856 (Stopped - Provider: Dhara Shelby RN) PN-Adult 2-in-1 Central Line (Standard) () IntraVENous, at 55 mL/hr, Administer over 24 Hours, CONTINUOUS TPN, Starting on Wed07/28/24 at 1800, For 24 hours 1752 (New Bag - Provider: Pita Hare RN) 1800 (Stopped - Provider: Pita Hare RN) PN-Adult 2-in-1 Central Line (Standard) IntraVENous, at 55 mL/hr, Administer over 24 Hours, CONTINUOUS TPN, Starting on Wed07/29/24 at 1800, For 24 hours 1818 (New Bag - Provider: Pita Hare RN) 1818 (Due: Stopped - Provider: Pita Hare RN) PRN Medication Order 07/28/2024 07/29/2024 07/30/2024 0.9 % sodium chloride infusion IntraVENous, at 5-250 mL/hr, PRN, if patient receiving piggyback infusions and maintenance fluids are not ordered OR KVO fluids to protect IV site / prevent frequent line interruptions/ long duration, Starting on Wed07/19/24 at 204, For piggyback infusion, administer at same rate as piggyback for a total of 25 mL. Enter 25 mL into dose field and piggyback rate into rate field of order. If piggyback is infusing at a rate less than 100 mL/hr, enter 25 mL into dose field and 100 mL/hr into rate field of order. For KVO fluids, enter rate of 20 mL/hr or less into rate field of order. acetaminophen (TYLENOL) suppository 650 mg(Linked Group 1) 650 mg, Rectal, EVERY 6 HOURS PRN, Starting on Wed07/19/24 at 2047, Until Discontinued, Pain Mild (1-3), Fever, For temp greater than 100.4 F (38 C), Administer if oral route cannot be used. acetaminophen (TYLENOL) tablet 650 mg(Linked Group 1) 650 mg, Oral, EVERY 6 HOURS PRN, Starting on Wed07/19/24 at 2047, Until Discontinued, Pain Mild (1-3), Fever, For temp greater than 100.4 F (38 C), Maximum dose of acetaminophen is 4000 mg from all sources in 24 hours. HYDROmorphone (DILAUDID) injection 0.5 mg (CANCELED) 0.5 mg, IntraVENous, EVERY 4 HOURS PRN, Starting on Wed07/19/24 at 2131, Until Wed07/28/24 at 1726, Pain Severe (7-10), Pain Moderate (4-6), If oral and IV narcotics ordered, use oral first and only use IV if oral is ineffective or cannot take oral. Do Not give oral and IV within 1 hour of each other unless specifically ordered. 0439 (Given - Provider: Nena Steve RN)0837 (Given - Provider: Pita Hare RN)1245 (Given - Provider: Pita Hare RN) hydrOXYzine HCl (ATARAX) tablet 25 mg 25 mg, Oral, NIGHTLY PRN, Starting on Wed07/21/24 at 2100, Until 08/20/24 at 2059, sleep 2002 (Given - Provider: Nena Steve RN) 1949 (Given - Provider: Elizabeth Read RN) hyoscyamine (LEVSIN) 0.5 MG/ML injection 0.25 mg 0.25 mg, IntraVENous, EVERY 6 HOURS PRN, Starting on 07/25/24 at 1654, Until Discontinued, Cramping 1924 (Given - Provider: Elizabeth Read RN) ketorolac (TORADOL) injection 15 mg 15 mg, IntraVENous, EVERY 6 HOURS PRN, Starting on 07/29/24 at 0802, Until Wilma 08/03/24 at 0801, Pain Moderate (4-6), Do not administer for more than 5 days 0810 (Given - Provider: Pita Hare RN)1352 (Given - Provider: Pita Hare RN)1949 (Given - Provider: Elizabeth Read, WAQAS) melatonin tablet 5 mg 5 mg, Oral, NIGHTLY PRN, Starting on Wed07/19/24 at 2107, Until Discontinued, Sleep 1949 (Given - Provider: Elizabeth Read RN) ondansetron (ZOFRAN) injection 4 mg(Linked Group 2) 4 mg, IntraVENous, EVERY 6 HOURS PRN, Starting on Wed07/19/24 at 2047, Until Discontinued, Nausea, Vomiting, Administer if oral route cannot be used. 0952 (Given - Provider: Pita Hare RN) 0624 (See Alternative - Provider: Nena Steve RN) 1053 (Given - Provider: Dhara Shelby RN) ondansetron (ZOFRAN-ODT) disintegrating tablet 4 mg(Linked Group 2) 4 mg, Oral, EVERY 8 HOURS PRN, Starting on Wed07/19/24 at 2047, Until Discontinued, Nausea, Vomiting 0952 (See Alternative - Provider: Pita Hare RN) 0624 (Given - Provider: Nena Steve RN) 1053 (See Alternative - Provider: Dhara Shelby, WAQAS) oxyCODONE-acetaminophen (PERCOCET) 5-325 MG per tablet 1 tablet (CANCELED) 1 tablet, Oral, EVERY 4 HOURS PRN, Starting on Wilma 07/27/24 at 1037, Until Wed07/28/24 at 1725, Pain Severe (7-10), Maximum dose of acetaminophen is 4000 mg from all sources in 24 hours. 0112 (Given - Provider: Nena Steve RN)0541 (Given - Provider: Nena Steve RN)1002 (Given - Provider: Pita Hare RN)1440 (Given - Provider: Pita Hare RN) oxyCODONE-acetaminophen (PERCOCET) 5-325 MG per tablet 1 tablet 1 tablet, Oral, EVERY 4 HOURS PRN, Starting on Wed07/28/24 at 1722, Until Discontinued, Pain Severe (7-10), Maximum dose of acetaminophen is 4000 mg from all sources in 24 hours. 0218 (Given - Provider: Nena Steve RN)1802 (Given - Provider: Pita Hare RN) 0010 (Given - Provider: Elizabeth Read RN)0425 (Given - Provider: Elizabeth Read RN)0901 (Given - Provider: Dhara Shelby RN) phenol 1.4 % mouth spray 1 spray 1 spray, Mouth/Throat, EVERY 2 HOURS PRN, Starting on Wed07/21/24 at 2130, Until Discontinued, Sore Throat potassium bicarb-citric acid (EFFER-K) effervescent tablet 40 mEq(Linked Group 3) 40 mEq, Oral, PRN, Starting on Wed07/19/24 at 2047, Until 08/05/24 at 2046, Per Potassium Replacement Protocol, Administer as alternative if patient unable to tolerate oral tablet. K Lab Replacement Action 3.1 to 3.5 40 mEq ORAL x 1 Under 3.1 Refer to IV replacement protocol Recheck K level in AM. Protocol not for use in patients with CrCl less than 30 mL/min. Do not chew or crush. Dissolve flavored tablets completely in 3 to 4 ounces of cold water; unflavored tablets may be dissolved in 3 to 4 ounces of cold juice. Patient to sip slowly over a 5 to 10 minute period. May further dilute if GI adverse effects occur. potassium chloride (KLOR-CON M) extended release tablet 40 mEq(Linked Group 3) 40 mEq, Oral, PRN, Starting on Wed07/19/24 at 2046, Until 08/05/24 at 2045, Potassium Replacement, May give alternative linked oral order (ordered as effervescent, packet, or liquid solution) if patient unable to tolerate tablet. K Lab Replacement Action 3.1 to 3.5 40 mEq ORAL x 1 Under 3.1 Refer to IV replacement protocol Recheck K level in AM. Protocol not for use in patients with CrCl less than 30 mL/min. Do not crush, chew, or suck on tablet. Tablet may also be broken in half and each half swallowed separately. potassium chloride 10 mEq/100 mL IVPB (Peripheral Line)(Linked Group 3) 10 mEq, IntraVENous, PRN, Starting on Wed07/19/24 at 2046, Until 08/05/24 at 2045, at 100 mL/hr, Potassium Replacement, K Lab Replacement Action 2.7 to 3.0 10 mEq IVPB x 6 doses (60 mEq Total) Under 2.7 CALL PROVIDER and administer 10 mEq IVPB x 6 doses (60 mEq Total) Infuse at 10 mEq/hr. Repeat Potassium lab 1 hour after final administration. Protocol not for use in patients with CrCl less than 30 mL/min. sodium chloride flush 0.9 % injection 5-40 mL 5-40 mL, IntraVENous, PRN, Starting on Wed07/19/24 at 2046, Until Discontinued, Line Care, After every IV line use, For Line Patency: Peripheral IV = 5 mL; Midline or Central Line = 10 mL/lumen. If following IV push medication, administer flush at same rate as the IV push. Flush volume is determined by type of infusion therapy being given. For non-viscous solutions use: Peripheral IV = 5 mL Midline or Central Line = 10 mL/lumen For viscous solutions (i.e. blood components, parenteral nutrition, contrast media, or after obtaining blood sample) use: Peripheral IV = 10 mL Midline or Central Line = 20 mL/lumen Linked Groups Order Group 1: acetaminophen (TYLENOL) tablet 650 mgJump to med 650 mg, Oral, EVERY 6 HOURS PRN, Starting on Wed07/19/24 at 2046, Until Discontinued, Pain Mild (1-3), Fever, For temp greater than 100.4 F (38 C), Maximum dose of acetaminophen is 4000 mg from all sources in 24 hours. Or acetaminophen (TYLENOL) suppository 650 mgJump to med 650 mg, Rectal, EVERY 6 HOURS PRN, Starting on Wed07/19/24 at 2046, Until Discontinued, Pain Mild (1-3), Fever, For temp greater than 100.4 F (38 C), Administer if oral route cannot be used. Group 2: ondansetron (ZOFRAN-ODT) disintegrating tablet 4 mgJump to med 4 mg, Oral, EVERY 8 HOURS PRN, Starting on Wed07/19/24 at 2046, Until Discontinued, Nausea, Vomiting Or ondansetron (ZOFRAN) injection 4 mgJump to med 4 mg, IntraVENous, EVERY 6 HOURS PRN, Starting on Wed07/19/24 at 2046, Until Discontinued, Nausea, Vomiting, Administer if oral route cannot be used. Group 3: potassium chloride (KLOR-CON M) extended release tablet 40 mEqJump to med 40 mEq, Oral, PRN, Starting on Wed07/19/24 at 2046, Until 08/05/24 at 2045, Potassium Replacement, May give alternative linked oral order (ordered as effervescent, packet, or liquid solution) if patient unable to tolerate tablet. K Lab Replacement Action 3.1 to 3.5 40 mEq ORAL x 1 Under 3.1 Refer to IV replacement protocol Recheck K level in AM. Protocol not for use in patients with CrCl less than 30 mL/min. Do not crush, chew, or suck on tablet. Tablet may also be broken in half and each half swallowed separately. Or potassium bicarb-citric acid (EFFER-K) effervescent tablet 40 mEqJump to med 40 mEq, Oral, PRN, Starting on Wed07/19/24 at 2046, Until 08/05/24 at 2045, Per Potassium Replacement Protocol, Administer as alternative if patient unable to tolerate oral tablet. K Lab Replacement Action 3.1 to 3.5 40 mEq ORAL x 1 Under 3.1 Refer to IV replacement protocol Recheck K level in AM. Protocol not for use in patients with CrCl less than 30 mL/min. Do not chew or crush. Dissolve flavored tablets completely in 3 to 4 ounces of cold water; unflavored tablets may be dissolved in 3 to 4 ounces of cold juice. Patient to sip slowly over a 5 to 10 minute period. May further dilute if GI adverse effects occur. Or potassium chloride 10 mEq/100 mL IVPB (Peripheral Line)Jump to med 10 mEq, IntraVENous, PRN, Starting on Wed07/19/24 at 2046, Until 08/05/24 at 2045, at 100 mL/hr, Potassium Replacement, K Lab Replacement Action 2.7 to 3.0 10 mEq IVPB x 6 doses (60 mEq Total) Under 2.7 CALL PROVIDER and administer 10 mEq IVPB x 6 doses (60 mEq Total) Infuse at 10 mEq/hr. Repeat Potassium lab 1 hour after final administration. Protocol not for use in patients with CrCl less than 30 mL/min. Source Comments (unrecognize d section and content) In the event this informatio n is protected by the Federal Confidentiality of Alcohol and Drug Abuse Patient Records regulations: The Federal rules restrict any use of the information to criminally investigate or prosecute any alcohol or drug abuse patient.[facility] the event this information is protected by the Federal Confidentiality of Alcohol and Drug Abuse Patient Records regulations: The Federal rules restrict any use of the information to criminally investigate or prosecute any alcohol or drug abuse patient.[facility] HospitalIn the event this information is protected by the Federal Confidentiality of Alcohol and Drug Abuse Patient Records regulations: The Federal rules restrict any use of the information to criminally investigate or prosecute any alcohol or drug abuse patient.[facility] HospitalIn the event this information is protected by the Federal Confidentiality of Alcohol and Drug Abuse Patient Records regulations: The Federal rules restrict any use of the information to criminally investigate or prosecute any alcohol or drug abuse patient.[facility] HospitalIn the event this information is protected by the Federal Confidentiality of Alcohol and Drug Abuse Patient Records regulations: The Federal rules restrict any use of the information to criminally investigate or prosecute any alcohol or drug abuse patient.[facility] HospitalIn the event this information is protected by the Federal Confidentiality of Alcohol and Drug Abuse Patient Records regulations: The Federal rules restrict any use of the information to criminally investigate or prosecute any alcohol or drug abuse patient.[facility] HospitalIn the event this information is protected by the Federal Confidentiality of Alcohol and Drug Abuse Patient Records regulations: The Federal rules restrict any use of the information to criminally investigate or prosecute any alcohol or drug abuse patient.[facility] HospitalIn the event this information is protected by the Federal Confidentiality of Alcohol and Drug Abuse Patient Records regulations: The Federal rules restrict any use of the information to criminally investigate or prosecute any alcohol or drug abuse patient.[facility] HospitalIn the event this information is protected by the Federal Confidentiality of Alcohol and Drug Abuse Patient Records regulations: The Federal rules restrict any use of the information to criminally investigate or prosecute any alcohol or drug abuse patient.[facility] HospitalIn the event this information is protected by the Federal Confidentiality of Alcohol and Drug Abuse Patient Records regulations: The Federal rules restrict any use of the information to criminally investigate or prosecute any alcohol or drug abuse patient.[facility] HospitalIn the event this information is protected by the Federal Confidentiality of Alcohol and Drug Abuse Patient Records regulations: The Federal rules restrict any use of the information to criminally investigate or prosecute any alcohol or drug abuse patient.[facility] HospitalIn the event this information is protected by the Federal Confidentiality of Alcohol and Drug Abuse Patient Records regulations: The Federal rules restrict any use of the information to criminally investigate or prosecute any alcohol or drug abuse patient.[facility] HospitalIn the event this information is protected by the Federal Confidentiality of Alcohol and Drug Abuse Patient Records regulations: The Federal rules restrict any use of the information to criminally investigate or prosecute any alcohol or drug abuse patient.[facility] HospitalIn the event this information is protected by the Federal Confidentiality of Alcohol and Drug Abuse Patient Records regulations: The Federal rules restrict any use of the information to criminally investigate or prosecute any alcohol or drug abuse patient.[facility] HospitalIn the event this information is protected by the Federal Confidentiality of Alcohol and Drug Abuse Patient Records regulations: The Federal rules restrict any use of the information to criminally investigate or prosecute any alcohol or drug abuse patient.[facility] HospitalIn the event this information is protected by the Federal Confidentiality of Alcohol and Drug Abuse Patient Records regulations: The Federal rules restrict any use of the information to criminally investigate or prosecute any alcohol or drug abuse patient.[facility] HospitalIn the event this information is protected by the Federal Confidentiality of Alcohol and Drug Abuse Patient Records regulations: The Federal rules restrict any use of the information to criminally investigate or prosecute any alcohol or drug abuse patient.[facility] HospitalIn the event this information is protected by the Federal Confidentiality of Alcohol and Drug Abuse Patient Records regulations: The Federal rules restrict any use of the information to criminally investigate or prosecute any alcohol or drug abuse patient.[facility] HospitalIn the event this information is protected by the Federal Confidentiality of Alcohol and Drug Abuse Patient Records regulations: The Federal rules restrict any use of the information to criminally investigate or prosecute any alcohol or drug abuse patient.[facility] HospitalIn the event this information is protected by the Federal Confidentiality of Alcohol and Drug Abuse Patient Records regulations: The Federal rules restrict any use of the information to criminally investigate or prosecute any alcohol or drug abuse patient.[facility] HospitalIn the event this information is protected by the Federal Confidentiality of Alcohol and Drug Abuse Patient Records regulations: The Federal rules restrict any use of the information to criminally investigate or prosecute any alcohol or drug abuse patient.[facility] HospitalIn the event this information is protected by the Federal Confidentiality of Alcohol and Drug Abuse Patient Records regulations: The Federal rules restrict any use of the information to criminally investigate or prosecute any alcohol or drug abuse patient.[facility] HospitalIn the event this information is protected by the Federal Confidentiality of Alcohol and Drug Abuse Patient Records regulations: The Federal rules restrict any use of the information to criminally investigate or prosecute any alcohol or drug abuse patient.[facility] HospitalIn the event this information is protected by the Federal Confidentiality of Alcohol and Drug Abuse Patient Records regulations: The Federal rules restrict any use of the information to criminally investigate or prosecute any alcohol or drug abuse patient.[facility] HospitalIn the event this information is protected by the Federal Confidentiality of Alcohol and Drug Abuse Patient Records regulations: The Federal rules restrict any use of the information to criminally investigate or prosecute any alcohol or drug abuse patient.[facility] HospitalIn the event this information is protected by the Federal Confidentiality of Alcohol and Drug Abuse Patient Records regulations: The Federal rules restrict any use of the information to criminally investigate or prosecute any alcohol or drug abuse patient.[facility] HospitalIn the event this information is protected by the Federal Confidentiality of Alcohol and Drug Abuse Patient Records regulations: The Federal rules restrict any use of the information to criminally investigate or prosecute any alcohol or drug abuse patient.[facility] HospitalIn the event this information is protected by the Federal Confidentiality of Alcohol and Drug Abuse Patient Records regulations: The Federal rules restrict any use of the information to criminally investigate or prosecute any alcohol or drug abuse patient.[facility] HospitalIn the event this information is protected by the Federal Confidentiality of Alcohol and Drug Abuse Patient Records regulations: The Federal rules restrict any use of the information to criminally investigate or prosecute any alcohol or drug abuse patient.[facility] HospitalIn the event this information is protected by the Federal Confidentiality of Alcohol and Drug Abuse Patient Records regulations: The Federal rules restrict any use of the information to criminally investigate or prosecute any alcohol or drug abuse patient.[facility] HospitalIn the event this information is protected by the Federal Confidentiality of Alcohol and Drug Abuse Patient Records regulations: The Federal rules restrict any use of the information to criminally investigate or prosecute any alcohol or drug abuse patient.[facility] HospitalIn the event this information is protected by the Federal Confidentiality of Alcohol and Drug Abuse Patient Records regulations: The Federal rules restrict any use of the information to criminally investigate or prosecute any alcohol or drug abuse patient.[facility] HospitalIn the event this information is protected by the Federal Confidentiality of Alcohol and Drug Abuse Patient Records regulations: The Federal rules restrict any use of the information to criminally investigate or prosecute any alcohol or drug abuse patient.[facility] HospitalIn the event this information is protected by the Federal Confidentiality of Alcohol and Drug Abuse Patient Records regulations: The Federal rules restrict any use of the information to criminally investigate or prosecute any alcohol or drug abuse patient.[facility] HospitalIn the event this information is protected by the Federal Confidentiality of Alcohol and Drug Abuse Patient Records regulations: The Federal rules restrict any use of the information to criminally investigate or prosecute any alcohol or drug abuse patient.[facility] HospitalIn the event this information is protected by the Federal Confidentiality of Alcohol and Drug Abuse Patient Records regulations: The Federal rules restrict any use of the information to criminally investigate or prosecute any alcohol or drug abuse patient.[facility] HospitalIn the event this information is protected by the Federal Confidentiality of Alcohol and Drug Abuse Patient Records regulations: The Federal rules restrict any use of the information to criminally investigate or prosecute any alcohol or drug abuse patient.[facility] HospitalIn the event this information is protected by the Federal Confidentiality of Alcohol and Drug Abuse Patient Records regulations: The Federal rules restrict any use of the information to criminally investigate or prosecute any alcohol or drug abuse patient.[facility] HospitalIn the event this information is protected by the Federal Confidentiality of Alcohol and Drug Abuse Patient Records regulations: The Federal rules restrict any use of the information to criminally investigate or prosecute any alcohol or drug abuse patient.[facility] HospitalIn the event this information is protected by the Federal Confidentiality of Alcohol and Drug Abuse Patient Records regulations: The Federal rules restrict any use of the information to criminally investigate or prosecute any alcohol or drug abuse patient.[facility] HospitalIn the event this information is protected by the Federal Confidentiality of Alcohol and Drug Abuse Patient Records regulations: The Federal rules restrict any use of the information to criminally investigate or prosecute any alcohol or drug abuse patient.[facility] HospitalIn the event this information is protected by the Federal Confidentiality of Alcohol and Drug Abuse Patient Records regulations: The Federal rules restrict any use of the information to criminally investigate or prosecute any alcohol or drug abuse patient.[facility] HospitalIn the event this information is protected by the Federal Confidentiality of Alcohol and Drug Abuse Patient Records regulations: The Federal rules restrict any use of the information to criminally investigate or prosecute any alcohol or drug abuse patient.[facility] HospitalIn the event this information is protected by the Federal Confidentiality of Alcohol and Drug Abuse Patient Records regulations: The Federal rules restrict any use of the information to criminally investigate or prosecute any alcohol or drug abuse patient.[facility] HospitalIn the event this information is protected by the Federal Confidentiality of Alcohol and Drug Abuse Patient Records regulations: The Federal rules restrict any use of the information to criminally investigate or prosecute any alcohol or drug abuse patient.[facility] HospitalIn the event this information is protected by the Federal Confidentiality of Alcohol and Drug Abuse Patient Records regulations: The Federal rules restrict any use of the information to criminally investigate or prosecute any alcohol or drug abuse patient.[facility] HospitalIn the event this information is protected by the Federal Confidentiality of Alcohol and Drug Abuse Patient Records regulations: The Federal rules restrict any use of the information to criminally investigate or prosecute any alcohol or drug abuse patient.[facility] HospitalIn the event this information is protected by the Federal Confidentiality of Alcohol and Drug Abuse Patient Records regulations: The Federal rules restrict any use of the information to criminally investigate or prosecute any alcohol or drug abuse patient.[facility] HospitalIn the event this information is protected by the Federal Confidentiality of Alcohol and Drug Abuse Patient Records regulations: The Federal rules restrict any use of the information to criminally investigate or prosecute any alcohol or drug abuse patient.[facility] HospitalIn the event this information is protected by the Federal Confidentiality of Alcohol and Drug Abuse Patient Records regulations: The Federal rules restrict any use of the information to criminally investigate or prosecute any alcohol or drug abuse patient.[facility] HospitalIn the event this information is protected by the Federal Confidentiality of Alcohol and Drug Abuse Patient Records regulations: The Federal rules restrict any use of the information to criminally investigate or prosecute any alcohol or drug abuse patient.[facility] HospitalIn the event this information is protected by the Federal Confidentiality of Alcohol and Drug Abuse Patient Records regulations: The Federal rules restrict any use of the information to criminally investigate or prosecute any alcohol or drug abuse patient.[facility] HospitalIn the event this information is protected by the Federal Confidentiality of Alcohol and Drug Abuse Patient Records regulations: The Federal rules restrict any use of the information to criminally investigate or prosecute any alcohol or drug abuse patient.[facility] HospitalIn the event this information is protected by the Federal Confidentiality of Alcohol and Drug Abuse Patient Records regulations: The Federal rules restrict any use of the information to criminally investigate or prosecute any alcohol or drug abuse patient.[facility] HospitalIn the event this information is protected by the Federal Confidentiality of Alcohol and Drug Abuse Patient Records regulations: The Federal rules restrict any use of the information to criminally investigate or prosecute any alcohol or drug abuse patient.[facility] HospitalIn the event this information is protected by the Federal Confidentiality of Alcohol and Drug Abuse Patient Records regulations: The Federal rules restrict any use of the information to criminally investigate or prosecute any alcohol or drug abuse patient.[facility] HospitalIn the event this information is protected by the Federal Confidentiality of Alcohol and Drug Abuse Patient Records regulations: The Federal rules restrict any use of the information to criminally investigate or prosecute any alcohol or drug abuse patient.[facility] HospitalIn the event this information is protected by the Federal Confidentiality of Alcohol and Drug Abuse Patient Records regulations: The Federal rules restrict any use of the information to criminally investigate or prosecute any alcohol or drug abuse patient.[facility] HospitalIn the event this information is protected by the Federal Confidentiality of Alcohol and Drug Abuse Patient Records regulations: The Federal rules restrict any use of the information to criminally investigate or prosecute any alcohol or drug abuse patient.[facility] HospitalIn the event this information is protected by the Federal Confidentiality of Alcohol and Drug Abuse Patient Records regulations: The Federal rules restrict any use of the information to criminally investigate or prosecute any alcohol or drug abuse patient.[facility] HospitalIn the event this information is protected by the Federal Confidentiality of Alcohol and Drug Abuse Patient Records regulations: The Federal rules restrict any use of the information to criminally investigate or prosecute any alcohol or drug abuse patient.[facility] HospitalIn the event this information is protected by the Federal Confidentiality of Alcohol and Drug Abuse Patient Records regulations: The Federal rules restrict any use of the information to criminally investigate or prosecute any alcohol or drug abuse patient.[facility] HospitalIn the event this information is protected by the Federal Confidentiality of Alcohol and Drug Abuse Patient Records regulations: The Federal rules restrict any use of the information to criminally investigate or prosecute any alcohol or drug abuse patient.[facility] HospitalIn the event this information is protected by the Federal Confidentiality of Alcohol and Drug Abuse Patient Records regulations: The Federal rules restrict any use of the information to criminally investigate or prosecute any alcohol or drug abuse patient.[facility] HospitalIn the event this information is protected by the Federal Confidentiality of Alcohol and Drug Abuse Patient Records regulations: The Federal rules restrict any use of the information to criminally investigate or prosecute any alcohol or drug abuse patient.[facility] HospitalIn the event this information is protected by the Federal Confidentiality of Alcohol and Drug Abuse Patient Records regulations: The Federal rules restrict any use of the information to criminally investigate or prosecute any alcohol or drug abuse patient.[facility] HospitalIn the event this information is protected by the Federal Confidentiality of Alcohol and Drug Abuse Patient Records regulations: The Federal rules restrict any use of the information to criminally investigate or prosecute any alcohol or drug abuse patient.[facility] HospitalIn the event this information is protected by the Federal Confidentiality of Alcohol and Drug Abuse Patient Records regulations: The Federal rules restrict any use of the information to criminally investigate or prosecute any alcohol or drug abuse patient.[facility] HospitalIn the event this information is protected by the Federal Confidentiality of Alcohol and Drug Abuse Patient Records regulations: The Federal rules restrict any use of the information to criminally investigate or prosecute any alcohol or drug abuse patient.[facility] HospitalIn the event this information is protected by the Federal Confidentiality of Alcohol and Drug Abuse Patient Records regulations: The Federal rules restrict any use of the information to criminally investigate or prosecute any alcohol or drug abuse patient.[facility] HospitalIn the event this information is protected by the Federal Confidentiality of Alcohol and Drug Abuse Patient Records regulations: The Federal rules restrict any use of the information to criminally investigate or prosecute any alcohol or drug abuse patient.[facility] HospitalIn the event this information is protected by the Federal Confidentiality of Alcohol and Drug Abuse Patient Records regulations: The Federal rules restrict any use of the information to criminally investigate or prosecute any alcohol or drug abuse patient.[facility] HospitalIn the event this information is protected by the Federal Confidentiality of Alcohol and Drug Abuse Patient Records regulations: The Federal rules restrict any use of the information to criminally investigate or prosecute any alcohol or drug abuse patient.[facility] HospitalIn the event this information is protected by the Federal Confidentiality of Alcohol and Drug Abuse Patient Records regulations: The Federal rules restrict any use of the information to criminally investigate or prosecute any alcohol or drug abuse patient.[facility] HospitalIn the event this information is protected by the Federal Confidentiality of Alcohol and Drug Abuse Patient Records regulations: The Federal rules restrict any use of the information to criminally investigate or prosecute any alcohol or drug abuse patient.[facility] HospitalIn the event this information is protected by the Federal Confidentiality of Alcohol and Drug Abuse Patient Records regulations: The Federal rules restrict any use of the information to criminally investigate or prosecute any alcohol or drug abuse patient.[facility] HospitalIn the event this information is protected by the Federal Confidentiality of Alcohol and Drug Abuse Patient Records regulations: The Federal rules restrict any use of the information to criminally investigate or prosecute any alcohol or drug abuse patient.[facility] HospitalIn the event this information is protected by the Federal Confidentiality of Alcohol and Drug Abuse Patient Records regulations: The Federal rules restrict any use of the information to criminally investigate or prosecute any alcohol or drug abuse patient.[facility] HospitalIn the event this information is protected by the Federal Confidentiality of Alcohol and Drug Abuse Patient Records regulations: The Federal rules restrict any use of the information to criminally investigate or prosecute any alcohol or drug abuse patient.[facility] HospitalIn the event this information is protected by the Federal Confidentiality of Alcohol and Drug Abuse Patient Records regulations: The Federal rules restrict any use of the information to criminally investigate or prosecute any alcohol or drug abuse patient.[facility] HospitalIn the event this information is protected by the Federal Confidentiality of Alcohol and Drug Abuse Patient Records regulations: The Federal rules restrict any use of the information to criminally investigate or prosecute any alcohol or drug abuse patient.[facility] HospitalIn the event this information is protected by the Federal Confidentiality of Alcohol and Drug Abuse Patient Records regulations: The Federal rules restrict any use of the information to criminally investigate or prosecute any alcohol or drug abuse patient.[facility] HospitalIn the event this information is protected by the Federal Confidentiality of Alcohol and Drug Abuse Patient Records regulations: The Federal rules restrict any use of the information to criminally investigate or prosecute any alcohol or drug abuse patient.[facility] HospitalIn the event this information is protected by the Federal Confidentiality of Alcohol and Drug Abuse Patient Records regulations: The Federal rules restrict any use of the information to criminally investigate or prosecute any alcohol or drug abuse patient.[facility] HospitalIn the event this information is protected by the Federal Confidentiality of Alcohol and Drug Abuse Patient Records regulations: The Federal rules restrict any use of the information to criminally investigate or prosecute any alcohol or drug abuse patient.[facility] FOR RECORDS PERTAINING TO PATIENTS WHO ARE OR HAVE BEEN ENROLLED IN A CHEMICAL DEPENDENCY/SUBSTANCEABUSE PROGRAM, SOME INFORMATION MAY BE OMITTED. This clinical summary was aggregated from multiple sources. Caution should be exercised in using it in the provision of clinical care. This summary normalizes information from multiple sources, and as a consequence, information in this document may materially change the coding, format and clinical context of patient data. In addition, data may be omitted in some cases. CLINICAL DECISIONS SHOULD BE BASED ON THE PRIMARY CLINICAL RECORDS. [facility]. provides no warranty or guarantee of the accuracy or completeness of information in this document.
[2025-04-12 17:01] LABS: Hematocrit 35.9 % (36.0-48.0); Hemoglobin 12.1 g/dL (12.0-16.0); Immature Granulocytes Abs Auto 0.01 10^3/uL (0.00-0.03); Immature Granulocytes Pct Auto 0.2 % (0.0-0.5); Lymphocytes Absolute Auto 1.7 10^3/uL (1.2-3.8); Mean Corpuscular HGB Conc 33.7 g/dL (29.9-35.2); Mean Corpuscular Hemoglobin 29.2 pg (26.7-34.0); Mean Corpuscular Volume 86.7 fL (81.0-99.0); Platelet Count 210 10^3/uL (150-450); Red Blood Count 4.14 10^6/uL (4.20-5.40); White Blood Count 5.6 10^3/uL (4.0-11.0)
== END 2025-04-12 16:39 | disposition home or self-care (01) ==
LOC: LAB 16:38
PROVIDERS: PCP Student in an Organized Health Care Education/Training Program; Visit Provider Student in an Organized Health Care Education/Training Program
DX: K50.918 Crohn's disease, unspecified, with other complication (principal); Z78.9 Other specified health status
CPT/HCPCS: 36415; 85025

== ENCOUNTER 2025-05-07 11:27 | Outpatient (REF) | payer OTHER, SELFPAY ==
--- OUTSIDE RECORDS SUMMARY | 2012-03-30 10:35 | XMS_ITS | Continuity of Care Document ---
Author Organization [facility] Address [address] [place], [place] [address]sh[place]esh [place] [address] Phone Care Team Providers Care Deck Supervisor Name Role Phone Rogerio TALAMANTES, Morgan Unavailable Unavailable Medications Medication Instructions Dosage Effective Dates (start - stop) Status Comments prednisone 10 mg Tab take 0.5 Tablet (5MG) by oral route every day for 2 weeks then off 5 MG - Active Prescription [email or web address] at . Lialda 1.2 g Tab take 3 Tablet (3.6G) by oral route every day with a meal 3.6 G - Active Procedures Procedure Date EST/ EXPANDED PROBLEM FOCUS EST/ EXPANDED PROBLEM FOCUS EST/ EXPANDED PROBLEM FOCUS EST/ PROBLEM FOCUS EST/ EXPANDED PROBLEM FOCUS COLONOSCOPY/ BX COLONOSCOPY/ BX Advance Directives Directive Yes / No Effective Date File Name No Information Encounters Encounter Description Practice Location Reason(s) For Visit Diagnoses Date Provider Providers Copied on Encounter [facility], [address] [place], [place] [address], [place], [id number] tel:[phone] [facility] No Information 2 Rogerio TALAMANTES Morgan. [address] [place], [place] [address], [place], [id number]. tel:[phone] [facility], [address] [place] [address] [place], [place], [id number] tel:[phone] [facility] No Information 2 Rogerio TALAMANTES Morgan. [address] [place] [address], [place], [place], [id number]. tel: [phone] EST/ EXPANDED PROBLEM FOCUS [facility], [address] [place] [address], [place], [place], [id number] tel:[phone] [facility] Crohn's disease (chief complaint) Crohns Small Bowel/Colon Apr-2 2 Rogerio TALAMANTES Morgan. [address] [place] [address], [place], [place], [id number]. tel: [phone] [facility], [address] [place] [address], [place], [place], [id number] tel:[phone] [facility] Abdominal Pain, Periumbilic Apr-1 2 Rogerio TALAMANTES Morgan. [address] [place] [address], [place], [place], [id number]. tel: [phone] [facility], [address] [place] [address], [place], [place], [id number] tel:[phone] [facility] Abdominal Pain, General Apr-1 2 Rogerio TALAMANTES Morgan. [address] [place] [address], [place], [place], [id number]. tel: [phone] EST/ EXPANDED PROBLEM FOCUS [facility], [address] [place] [address], [place], [place], [id number] tel:[phone] [facility] Colitis (chief complaint) Crohns Small Bowel/Colon Sep-2 1 Rogerio TALAMANTES Morgan. [address] [place] [address], [place], [place], [id number]. tel: [phone] Referring Provider: Morgan Brandt, [address] [place] [address], [place], [address]. tel: [phone] EST/ EXPANDED PROBLEM FOCUS [facility], [address] [place] [address], [place], [place], [id number] tel:[phone] [facility] Colitis (chief complaint) Crohns Small Bowel/ColonDy spepsiaExtern al hemorrhoids without mention of complication Apr-2 8-201 1 Rogerio TALAMANTES Morgan. [address] [place] [address], [place], [place], [id number]. tel: [phone] Referring Provider: Morgan Brandt, [address] [place] [address], [place], [address]. tel: [phone] EST/ PROBLEM FOCUS [facility], [address] [place] [address] [place], [place], [id number] tel:[phone] [facility] Colitis (chief complaint) Colitis/Gastr oenteritis 1 No Information [facility], [address] [place], [place] [address], [place], [id number] tel:[phone] [facility] Abdominal Pain, General 1 Yuriy Mac. [address] [place] [address], [place], [id number]. tel: [phone] EST/ EXPANDED PROBLEM [facility], [address] [place] [address] [place], [place], [id number] tel:[phone] [facility] No Information 0 No Information [facility], [address] [place], [place] [address], [place], [id number] tel:[phone] [facility] No Information 0 Rogerio TALAMANTES Morgan. [address] [place] [address], [place], [place], [id number]. tel: [phone] Referring Provider: Jaya Mohan MD P, [address], [place], [address]. tel: [phone] Family History Family Member Type Diagnosis Age At Onset No Information Payers Payer name Insurance type Covered democrat [place] Authoriza tion(s) No Information Social History Type Description Quantity Date Captured Comments Sex Female Smoking Status No Information Chief Complaint And Reason For Visit No Information Reason For Referral Reason For Referral No Information Plan Of Treatment Date Type Action Status Referral Ordered: CT Abdomen/Pelvis W & W/O Contrast Appointment date/timeframe: 10/22/2011 [id number] Ordered: Office Visit Appointment date/timeframe: 5 Months ordered History Of Present Illness Encounter Date Complaint History Of Prese nt Illness Crohn's disease Risk factors/co- morbidities include history of NSAIDS and history of Crohn's: Ileum. Previous treatments include salicylates (lialda) and steroids (budesonide). Associated symptoms include abdominal pain, diarrhea (bloody) and mucus in stool. Crohn's disease Risk factors/co- morbidities include history of NSAIDS and history of Crohn's: Ileum. Previous treatments include salicylates (lialda) and steroids (budesonide). Associated symptoms include abdominal pain, diarrhea (bloody) and mucus in stool. Crohn's disease Yesica presents lashawn roman to discuss a Crohn's flare. She has been doing well on Lialda alone as far as therapy for her Crohn's disease until approximately 2 months ago when she developed recurrent severe right lower quadrant pain diarrhea anorexia and occasional bloody stool. She tried to deal with this by taking Lialda only. But approximately 10 days ago she called our office and stated her symptoms were quite severe and a CT scan was performed which revealed significant ileitis. She was placed on prednisone 40 mg a day and within 2-3 days has noted significant improvement in her abdominal pain and diarrhea. She is having mild cramping abdominal pain and feels significantly improved. Denies fevers or chillsHer is in the and they will be moving to [place] in the next week to 4 weeks. The station there for 5 months and will be transferred to another location after that. She also informs me that she would like to consider having more children after her most recent miscarriage and that is something they would consider within the next year or so.In the past she took Entocort with good control of her ileitis and Crohn's is well. Colonoscopy was in the past 2-3 years revealed very mild colitis but rather significant ileitis of the terminal ileum. Colitis Risk factors/co- morbidities include history of NSAIDS and history of Crohn's. Previous treatments include salicylates (lialda) and steroids (budesonide). Associated symptoms include abdominal pain and constipation. Colitis Risk factors/co- morbidities include history of NSAIDS and history of Crohn's. Previous treatments include salicylates (lialda) and steroids (budesonide). Associated symptoms include abdominal pain and constipation. Colitis Yesica returns to day in followup of her colitis. She was doing well until approximately 10 or 11 weeks ago when she found out that she was . She discontinued her lialda, despite being told that the medication was safe during . She also was found to be somewhat anemic and was placed on oral iron therapy. The iron is made her progressively constipated he's also been developing some vague diffuse abdominal discomfort. Recently her bowel discomfort became progressively worse and she was seen in the emergency room and was diagnosed with a Crohn's flare. Her abdominal pain is made worse by constipation and she believes her constipation is related to her and the iron therapy. She has been noncompliant with the iron. She is not having diarrhea Colitis Yesica returns to day accompanied by her to discuss her colitis. Colonoscopy recent found mild starr colitis as well as terminal ileal disease associated with Crohn disease. She was placed on Entocort followed by Justin. She has tapered off the Entocort and is taking Lialda 3 tablets a day.She normally has only one bowel movement a day. She has some mild diffuse abdominal pain especially after some meals and drinking alcohol and caffeinated beverages. She occasionally has hemorrhoidal bleeding. She has many questions regarding her Crohn's disease. We discussed and medications for Crohn disease. She recently took the plan be drug and is not at this time. Colitis Risk factors/co- morbidities include history of NSAIDS and history of Crohn's: Ileum (onset 2009). Associated symptoms include abdominal pain and pain after eating. Colitis Risk factors/co- morbidities include history of NSAIDS and history of Crohn's: Ileum (onset 2009). Associated symptoms include abdominal pain and pain after eating. Colitis The symptoms beg an 3 weeks ago and generally lasts 2 Weeks. The symptoms are reported as being moderate. The symptoms occur daily. She states the symptoms are unstable. Recently 6oo mg of ibuprofen daily for exacerbation of chronic headaches (since age 7). 20# weight loss over last several months but braces placed in Dec and diet altered accordingly Colitis Recently 6oo mg of ibuprofen daily for exacerbation of chronic headaches (since age 7). 20# weight loss over last several months but braces placed in Dec and diet altered accordingly Colitis The symptoms beg an 3 weeks ago and generally lasts 2 Weeks. The symptoms are reported as being moderate. The symptoms occur daily. She states the symptoms are unstable. Recently 6oo mg of ibuprofen daily for exacerbation of chronic headaches (since age 7). 20# weight loss over last several months but braces placed in Dec and diet altered accordingly Functional Status Date Functional Assessmen t No Information Instructions Date Instruction Additional Infor mation No Information Assessments Type Assessment Date No Information Patient Care Teams Name Effective Dates (start - stop) Status Members No Information
--- OUTSIDE RECORDS SUMMARY | 2024-05-01 07:30 | XMS_ITS ---
Author Organization The [facility] in [place] Address [address] [place] [address] Care Team Providers Care Phonograph Needle Tip Maker Name Role Phone None, Unknown or Primary Care Provider Unavailab Hemant Gruber Unavailable [phone] REASON FOR VISIT SATV/IP/Consult/Crohns/abd abscess Encounters Encounter Location Date Provider Diagnosis [address] [address] 05/01/2024 Hemant Katz Plan Of Treatment No Information Progress Notes * FRANCINE HOBSONDOB:1985 (39 yo F)Acc No.[id number]:05/01/2024 UNLOCKED PROGRESS NOTE Patient:?FRANCINE HBOSON :?Hemant Katz MDDOB:1985???Age:38 Y???Sex: FemaleDate:4Phone:[phone]:Philip [address], ANASTASIYA GarciaBAYSHORE COMMUNITY HOSPITALMARCOSW[place], [place]Jdp:Unknown or None Subjective: * Chief Complaints: * 1 . SATV/IP/Consult/Crohns/abd abscess. * Medical History: Objective: * Vitals: Assessment: Plan: * Treatment: * * Electronic signature of Hemant Katz MD, [id number] on 05/07/2025 at 11:31 AM EST Sign off status: PendingVisit Status:?PEN (Pending) * Provider: Lizzeth Katz MD Date: 1 Generated for Printing/Faxing/eTransmitting on:?05/07/2025 11:31 AM EST
--- OUTSIDE RECORDS SUMMARY | 2024-07-20 06:30 | XMS_ITS ---
Author Organization The [facility] in [place] Address [address] [place] [address] Care Team Providers Care Software Security Architect Name Role Phone None, Unknown or Primary Care Provider Unavailab Hemant Gruber Unavailable [phone] REASON FOR VISIT STV/IP/Consult/crohns Encounters Encounter Location Date Provider Diagnosis [address] [address] 07/20/2024 Hemant Katz Plan Of Treatment No Information Progress Notes * FRANCINE HOBSONDOB:1985 (39 yo F)Acc No.[id number]:07/20/2024 UNLOCKED PROGRESS NOTE Patient:?FRANCINE HOBSON :?Hemant Katz MDDOB:1985???Age:38 Y???Sex: FemaleDate:07/20/2024Phone:[phone]:Philip [address], [place], [place]Suz:Unknown or None Subjective: * Chief Complaints: * 1 . STV/IP/Consult/crohns. * Medical History: Objective: * Vitals: Assessment: Plan: * Treatment: * * Electronic signature of Hemant Katz MD, [id number] on 05/07/2025 at 11:30 AM EST Sign off status: PendingVisit Status:?PEN (Pending) * Provider: Lizzeth Katz MD Date: 0 07/20/2024 Generated for Printing/Faxing/eTransmitting on:?05/07/2025 11:30 AM EST
--- OUTSIDE RECORDS SUMMARY | 2025-05-07 11:30 | XMS_ITS | Clinical Summary ---
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 Name Role Phone Unavailable Primary Care Provider Unavailabl e Social History Tobacco UseTypesPacks/DayYears UsedDateSmoking Tobacco: Never Assessed CommentsUnknownSex and Gender InformationValueDate RecordedSex Assigned at Not on fileLegal RjvRldcmw52/04/2023 12:16 PM EDTGender IdentityNot on file Sexual OrientationNot on file Last Filed Vital Signs Vital SignReadingTime TakenCommentsBlood Ejguurzu256/68010/02/2022 12:00 PM EDT Pulse--Temperature--Respiratory Rate--Oxygen Saturation--Inhaled Oxygen Concentration--Ezcaaj12.9 kg (121 lb)10/02/2022 12:00 PM TVHJmhaau889.2 cm (5' 7 )10/02/2022 12:00 PM EDTBody Mass Index18.95010/02/2022 12:00 PM EDT Plan of Treatment Not on file
--- OUTSIDE RECORDS SUMMARY | 2025-05-07 11:31 | XMS_ITS | Patient Health Record ---
Author Organization [facility] [place] Address [address] [place] [address] Care Team Providers Care Account Information Clerk Name Role Phone None, Unknown or Primary Care Provider Unavailab Hmeant Gruber Unavailable [phone] Reason For Referral No Information Encounters Encounter Location Date Provider Diagnosis [address] [id number] 07/20/2024 [facility] Plan Of Treatment No Information Insurance Providers Payer Name Payer Address Payer Phone Subscriber Number Group Number Insured Name Patient Relationship to Insured Coverage Start Date Coverage End Date [facility] MEDICAID [address] [place], [place] [id number] CSOHFRANCINE HENRIQUEZ Self - patient is the insured 4
[2025-05-07 11:47] LABS: Hematocrit 34.1 % (36.0-48.0); Hemoglobin 11.1 g/dL (12.0-16.0); Immature Granulocytes Abs Auto 0.01 10^3/uL (0.00-0.03); Immature Granulocytes Pct Auto 0.2 % (0.0-0.5); Lymphocytes Absolute Auto 1.1 10^3/uL (1.2-3.8); Mean Corpuscular HGB Conc 32.6 g/dL (29.9-35.2); Mean Corpuscular Hemoglobin 28.8 pg (26.7-34.0); Mean Corpuscular Volume 88.6 fL (81.0-99.0); Platelet Count 197 10^3/uL (150-450); Red Blood Count 3.85 10^6/uL (4.20-5.40); White Blood Count 4.3 10^3/uL (4.0-11.0)
[2025-05-07 12:16] LABS: Alanine Aminotransferase 29 U/L (14-59); Albumin Globulin Ratio 0.8; Albumin Level 3.1 g/dL (3.4-5.0); Alkaline Phosphatase 74 U/L (46-116); Anion Gap 11.3; Aspartate Amino Transferase 13 U/L (15-37); Blood Urea Nitrogen 23.0 mg/dL (7.0-18.0); Calcium 8.6 mg/dL (8.5-10.1); Carbon Dioxide 27.1 mmol/L (21.0-32.0); Chloride 103 mmol/L (98-107); Estimated GFR (African America >60 (>=60 mL/min/1.73m^2); Estimated GFR (Non-African Ame >60 (>=60 mL/min/1.73m^2); Globulin 3.7 g/dL; Glucose 110 mg/dL (74-106); Magnesium 2.2 mg/dL (1.8-2.4); Potassium 4.4 mmol/L (3.5-5.1); Sodium 137 mmol/L (136-145); Total Protein 6.8 g/dL (6.4-8.2)
--- OUTSIDE RECORDS SUMMARY | 2025-06-08 19:00 | XMS_ITS | Clinical Summary ---
Author Organization Unknown Care Team Providers Care Server Name Role Phone YONATHAN REDD DO Unavailable Unavailable ANDERSON ALAN, YANICK Unavailable Unavailable STEVEN ALAN, ELLIOTT Unavailable Unavailoksana MARTINEZ RN, YONI Unavailable Unavailable CATIA RN, KANE Unavailable Unavailable Payers Payer Name Policy Type Policy Number Effective Date Expira tion Date [facility] [id number] Problems Condition Name Condition Details Condition Category Status Onset Date Resolution Date Last Treatment Date Treating Clinician Comments CROHN'S DISEASE, UNSPECIFIED, WITH OTHER COMPLICATION [id number] 00:00:00OTHER SPECIFIED HEALTH JTGGFWTdgrkj0540-14-52 00:00:00 MILD PROTEIN-CALORIE TAOZSJZZHFFVIyvjvy7411-75-60 00:00:00ENCOUNTER FOR THERAPEUTIC DRUG LEVEL SLLCJRYDRBFzhhih9202-63-30 00:00:00ILEOSTOMY STATUSActive 2025-04-10 00:00:00PRESENCE OF OTHER VASCULAR IMPLANTS AND GRAFTSActive 2025-04-10 00:00:00 Allergies, Adverse Reactions, Alerts Allergy Name Allergy Type Status Severity Reaction(s) Onset Date Inactive Date Treating Clinician Comments NSAIDS ALL Propensity to adverse reactions Active 2025-04-11 15:12:53 Vital Signs Vital Name Observation Time Observation Value Commen ts Temperature 2025-05-02 11:13:00.000 98 [degF] Fqdmnaktbyz0102-37-73 12:34:00.48937.8 [degF]Kaakirvizjy8174-90-48 12:37:00.000 97.5 [degF]Seicxyxsoda2512-34-48 15:56:00.37861.8 [degF]Xdumxvrqpgk2866-28-67 15:39:00.25492.2 [degF]BMI (%)2025-04-11 15:39:00.31123 kg/m2Gwkngs4729-39-39 15:39:00.99779 [in_us]Yqkyr8023-72-31 11:13:00.28541 /vclPzdia9819-98-13 12:34:00.55729 /xsvCykly2697-48-54 12:37:00.40286 /qkcVlvxj0271-79-12 15:56:00.44099 /xzcKszxv1398-52-08 15:39:00.21307 /minO2 Saturation (%) 2025-05-02 11:13:00.20083 %O2 Saturation (%)2025-04-25 12:34:00.878603 %O2 Saturation (%)2025-04-18 12:37:00.88520 %O2 Saturation (%)2025-04-12 15:56:00.539157 %O2 Saturation (%)2025-04-11 15:39:00.70593 %Respirations 2025-05-02 11:13:00.26339 /lmdPepraujfipnq0437-86-77 12:34:00.20655 /min Fxcsxexvulxb8567-54-51 12:37:00.71705 /lwiLjgzodydcbgb8270-16-18 15:56:00.68135 /ikmOamibfwqfmvh4590-24-25 15:39:00.22831 /minWeight (lbs)2025-04-11 15:39:00.009784 [lb_av]Systolic Blood Ozdsjewu5433-27-59 11:13:00.203672 mm[Hg] Systolic Blood Pxtnrrbd4917-89-83 12:34:00.545219 mm[Hg]Systolic Blood Pressure 2025-04-18 12:37:00.986854 mm[Hg]Systolic Blood Hxgczkxx5770-13-83 15:56:00.000 118 mm[Hg]Systolic Blood Cveqbtcr6664-60-22 15:39:00.146615 mm[Hg]Diastolic Blood Eespyenz9315-37-93 11:13:00.88284 mm[Hg]Diastolic Blood Nlkfgbdi6173 12:34:00.80755 mm[Hg]Diastolic Blood Wcdvexlv9767-74-99 12:37:00.18067 mm[Hg] Diastolic Blood Qpqfupgd4139-07-03 15:56:00.51830 mm[Hg]Diastolic Blood Pressure 2025-04-11 15:39:00.08771 mm[Hg] Plan of Treatment Planned Activity Planned Date Details Comments Future Scheduled Test ALL CONSULTING/COVERING PHYSICIANS MAY SIGN/ISSUE ORDERS. [code = ALL CONSULTING/COVERING PHYSICIANS MAY SIGN/ISSUE ORDERS.]Future Scheduled Test SKILLED NURSE FOR OBSERVATION/ASSESSMENT OF GASTROINTESTINAL STATUS AND TO INTERVENE TO MINIMIZE COMPLICATIONS. SKILLED NURSE TO PROVIDE SKILLED TEACHING/REINFORCEMENT RELATED TO ALTERED GASTROINTESTINAL STATUS INCLUDING PATHOPHYSIOLOGY, NUTRITIONAL REQUIREMENTS, AND MEDICATION REGIMEN. [code = SKIL LED NURSE FOR OBSERVATION/ASSESSMENT OF GASTROINTESTINAL STATUS AND TO INTERVENE TO MINIMIZE COMPLICATIONS. SKILLED NURSE TO PROVIDE SKILLED TEACHING/REINFORCEMENT RELATED TO ALTERED GASTROINTESTINALSTATUS INCLUDING PATHOPHYSIOLOGY, NUTRITIONAL REQUIREMENTS, AND MEDICATION REGIMEN.]Future Scheduled TestSKILLED NURSE TO REVIEW MEDICATION PROFILE AND RECONCILE MEDICATIONS NEEDED. SKILLED NURSE MAY INSTRUCT AND REINFORCE MEDICATION TEACHING RELATED TO USE OF MEDICATIONS TO TREAT DISEASE PROCESSES. [code = SKILLED NURSE TO REVIEW MEDICATION PROFILE AND RECONCILE MEDICATIONS NEEDED. SKILLED NURSE MAY INSTRUCT AND REINFORCE MEDICATION TEACHING RELATED TO USE OF MEDICATIONS TO TREAT DISEASE PROCESSES.]Future Scheduled TestSKILLED NURSE FOR TEACHING OF ADMINISTRATION OF PARENTERAL NUTRITION. [code = SKILLED NURSE FOR TEACHING OF ADMINISTRATION OF PARENTERAL NUTRITION.]Future Scheduled TestSKILLED NURSE FOR MONITORING EFFECTIVENESS OF ANTICOAGULATION THERAPY REGIMEN AND SKILLED INSTRUCTION RELATED TO ANTICOAGULATION MANAGEMENT [code = SKILLED NURSE FOR MONITORING EFFECTIVENESS OF ANTICOAGULATION THERAPY REGIMEN AND SKILLED INSTRUCTION RELATED TO ANTICOAGULATION MANAGEMENT]Future Scheduled TestSKILLED NURSE TO EVALUATE AND DEVELOP PLAN OF CARE TO BE COUNTERSIGNED BY PHYSICIAN. SKILLED NURSE TO ASSESS/EVALUATE MALNUTRITION OF MILD DEGREE (HCC) AND CO-MORBID CONDITIONS INCLUDING ON TOTAL PARENTERAL NUTRITION (TPN) AND OTHER CONDITIONS THAT PRESENT THEMSELVES DURING THE COURSE OF THIS EPISODE TO IDENTIFY CHANGES AND INTERVENE TO MINIMIZE COMPLICATIONS. [code = SKILLED NURSE TO EVALUATE AND DEVELOP PLAN OF CARE TO BE COUNTERSIGNED BY PHYSICIAN. SKILLED NURSE TO ASSESS/EVALUATE MALNUTRITION OF MILD DEGREE (HCC) AND CO-MORBID CONDITIONS INCLUDING ON TOTAL PARENTERAL NUTRITION (TPN) AND OTHER CONDITIONS THAT PRESENT THEMSELVES DURING THE COURSE OF THIS EPISODE TO IDENTIFY CHANGES AND INTERVENE TO MINIMIZE COMPLICATIONS.]Future Scheduled TestSKILLED NURSE TO OBTAIN BLOOD SPECIMEN EVERY WEDNESDAY FROM CENTRAL LINE FOR CMP, PHOSPHATE, MAGNESIUM, CBC WITH DIFF. LIPIDS ONE TIME ON 04/11/2025. SN TO FLUSH LINE WITH 10ML NS 0.9% AND PULL BACK 10ML BLOOD AND DISCARD. OBTAIN ORDERED LABS AND FLUSH LINE WITH 10ML NS 0.9% SN MAY OBTAIN LABS VIA VENIPUNCTURE PRN INABILITY TO DRAW VIA VASCULAR ACCESS DEVICE. 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 FAX RESULTS TO DR YONATHAN REDD [phone] AND [facility] [phone]. [co de = SKILLED NURSE TO OBTAIN BLOOD SPECIMEN EVERY WEDNESDAY FROM CENTRAL LINE FOR CMP, PHOSPHATE, MAGNESIUM, CBC WITH DIFF. LIPIDS ONE TIME ON 04/11/2025. SN TO FLUSH LINE WITH 10ML NS 0.9% AND PULL BACK 10ML BLOOD AND DISCARD. OBTAIN ORDERED LABS AND FLUSH LINE WITH 10ML NS 0.9% SN MAY OBTAIN LABS VIA VENIPUNCTURE PRN INABILITY TO DRAW VIA VASCULAR ACCESS DEVICE. 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 FAX RESULTS TO DR YONATHAN REDD [phone] AND [facility] [phone].]Future Scheduled TestSKILLED NURSE TO PROVIDE AND INSTRUCT REGARDING FALL PREVENTION INTERVENTIONS. [code = SKILLED NURSE TO PROVIDE AND INSTRUCT REGARDING FALL PREVENTION INTERVENTIONS.] Future Scheduled TestSKILLED NURSE TO MONITOR PLAN FOR CURRENT TREATMENT OF DEPRESSION SUCH EFFECTS OF MEDICATION AND/OR NEED FOR REFERRAL FOR OTHER TREATMENT. [code = SKILLED NURSE TO MONITOR PLAN FOR CURRENT TREATMENT OF DEPRESSION SUCH EFFECTS OF MEDICATION AND/OR NEED FOR REFERRAL FOR OTHER TREATMENT.]Future Scheduled TestSKILLED NURSE TO PROVIDE/INSTRUCT REGARDING INTERVENTION(S) TO MONITOR AND MITIGATE PAIN. [code = SKILLED NURSE TO PROVIDE/INSTRUCT REGARDING INTERVENTION(S) TO MONITOR AND MITIGATE PAIN.]Future Scheduled TestDISCHARGE HOME HEALTH SERVICES WHEN GOALS ARE MET OR SKILLED CARE NO LONGER REQUIRED. [code = DISCHARGE HOME HEALTH SERVICES WHEN GOALS ARE MET OR SKILLED CARE NO LONGER REQUIRED.]Future Scheduled TestPATIENT IS AT RISK FOR HOSPITALIZATION OR EMERGENCY DEPARTMENT USE DUE TO INFECTION. TEACH PATIENT/C AREGIVER TO ?CALL US FIRST? . INFORM ON WHO AND WHEN TO CALL FOR SYMPTOMS BASED ON ZONE TOOLS. INSTRUCT ON MITIGATION OF IDENTIFIED HOSPITAL OR EMERGENCY DEPARTMENT RISK FACTORS. [code = PATIENT IS AT RISK FOR HOSPITALIZATION OR EMERGENCY DEPARTMENT USE DUE TO INFECTION. TEACH PATIENT/CAREGIVER TO ?CALL US FIRST? . INFORM ON WHO AND WHEN TO CALL FOR SYMPTOMS BASED ON ZONE TOOLS.INSTRUCT ON MITIGATION OF IDENTIFIED HOSPITAL OR EMERGENCY DEPARTMENT RISK FACTORS.]Future Scheduled TestSKILLED NURSE MAY PERFORM 2 PRN VISITS FOR IV COMPLICATIONS [code = SKILLED NURSE MAY PERFORM 2 PRNVISITS FOR IV COMPLICATIONS]Future Scheduled TestSKILLED NURSE FOR OASIS DATA COLLECTION/COMPREHENSIVE ASSESSMENT TO DETERMINE SKILLED NEED. THIS MAY INCLUDE RESUMPTION OF CARE ASSESSMENT (RILEY) TO DETERMINE SKILLED NEED FOLLOWING INPATIENT DISCHARGE SHOULD PATIENT TRANSFER AND ADMIT TO AN INPATIENT FACILITY DURING CURRENT 60-DAY CERTIFICATION PERIOD. ADDITIONAL VISITS MAY BE REQUIRED FOR RECERT, FOLLOW UP, SIGNIFICANT CHANGE IN CONDITION (SCIC)AND DISCHARGE. HOME HEALTH VAMP PRESSER MAY PROVIDE CARE RECOMMENDATIONS NEEDED ON NEW, EXISTING OR CHANGED WOUND OR INTEGUMENTARY CONDITIONS. [code = SKILLED NURSE FOR OASIS DATA COLLECTION/COMPREHENSIVE ASSESSMENT TO DETERMINE SKILLED NEED. THIS MAY INCLUDE RESUMPTION OF CARE ASSESSMENT (RILEY) TO DETERMINE SKILLED NEED FOLLOWING INPATIENT DISCHARGE SHOULD PATIENT TRANSFER AND ADMIT TO AN INPATIENT FACILITY DURING CURRENT 60-DAY CERTIFICATION PERIOD. ADDITIONAL VISITS MAY BE REQUIRED FOR RECERT, FOLLOW UP, SIGNIFICANT CHANGE IN CONDITION (SCIC) AND DISCHARGE. HOME HEALTH VAMP PRESSER MAY PROVIDE CARE RECOMMENDATIONS NEEDED ON NEW, EXISTING OR CHANGED WOUND OR INTEGUMENTARY CONDITIONS.]Future Scheduled TestSKILLED NURSE FOR OBSERVATION / ASSESSMENT OF INFUSION ACCESS DEVICE SITE FORSIGNS / SYMPTOMS OF INFILTRATION, PHLEBITIS, OCCLUSION, INFECTION WELL RESPONSE TO MEDICATION THERAPY. [code = SKILLED NURSE FOR OBSERVATION / ASSESSMENT OF INFUSION ACCESS DEVICE SITE FORSIGNS / SYMPTOMS OF INFILTRAT ION, PHLEBITIS, OCCLUSION, INFECTION WELL RESPONSE TO MEDICATION THERAPY.] Future Scheduled TestSKILLED NURSE TO INSTRUCT REGARDING INFUSION PROCEDURE, CARE OF ACCESS DEVICE, SIGNS/SYMPTOMS OF ACCESS DEVICE COMPLICATIONS, SIGNS/SYMPTOMS OF ADVERSE REACTIONS TO INFUSION MEDICATION/SOLUTION, CAREAND USE OF EQUIPMENT, RECORD KEEPING, INFUSION PROCEDURES, AND PRECAUTIONS. [code = SKILLED NURSE TO INSTRUCT REGARDING INFUSION PROCEDURE, CARE OF ACCESS DEVICE, SIGNS/SYMPTOMS OF ACCESS DEVICE COMPLICATIONS, SIGNS/SYMPTOMS OF ADVERSE REACTIONS TO INFUSION MEDICATION/SOLUTION, CARE AND USE OF EQUIPMENT, RECORD KEEPING, INFUSION PROCEDURES, AND PRECAUTIONS.]Future Scheduled TestSKILLED NURSE TO PERFORM VASCULAR ACCESS DEVICE SITE CARE VIA STERILE TECHNIQUE FOR VAZQUEZ. CLEANSE SITE WITH CHLORHEXIDINE GLUCONATE. MAY APPLY SKIN PREP, ALLOW SITE TO AIR DRY, CHANGE SECUREMENT DEVICE AND COVER WITH STERILE TRANSPARENT DRESSING. DRESSING CHANGES TO BE PERFORMED WEEKLY AND PRN FOR LOOSE OR SOILED DRESSING. END CAPS/EXTENSION TUBE TO BE CHANGED WEEKLY AND WITH EACH LAB DRAW. [code = SKILLED NURSE TO PERFORM VASCULAR ACCESS DEVICE SITE CARE VIA STERILE TECHNIQUE FOR VAZQUEZ. CLEANSE SITE WITH CHLORHEXIDINE GLUCONATE. MAY APPLY SKIN PREP, ALLOW SITE TO AIR DRY, CHANGE SECUREMENT DEVICE AND COVER WITH STERILE TRANSPARENT DRESSING. DRESSING CHANGES TO BE PERFORMED WEEKLY AND PRN FOR LOOSE OR SOILED DRESSING. END CAPS/EXTENSION TUBE TO BE CHANGED WEEKLY AND WITH EACH LAB DRAW.]Future Scheduled TestSKILLED NURSE TO TEACH/ADMINISTER IV TPN DAILY. FLUSH PRE AND POST INFUSION WITH 10 ML 0.9% NORMAL SALINE FOLLOWED BY FINAL FLUSH OF 10 ML USING SAS PROTOCOL. PATIENT/CAREGIVER TO PERFORM AFTER ADEQUATE RETURN DEMONSTRATION. [code = SKILLED NURSE TO TEACH/ADMINISTER IV TPN DAILY. FLUSH PRE AND POSTINFUSION WITH 10 ML 0.9% NORMAL SALINE FOLLOWED BY FINAL FLUSH OF 10 ML USING SAS PROTOCOL. PATIENT/CAREGIVER TO PERFORM AFTER ADEQUATE RETURN DEMONSTRATION.]GoalPatient Goal - NO HOSPITALIZATIONGoalProvider Goal -Goal Provider Goal - GASTROINTESTINAL STATUS WILL BE EVALUATED AND EXACERBATIONS IDENTIFIED WITH INTERVENTIONS IMPLEMENTED TO MINIMIZE COMPLICATIONS. PATIENT/CAREGIVER WILL VERBALIZE/DEMONSTRATE ABILITY MANAGE GASTROINTESTINAL DISEASE EVIDENCED BY DECREASED SYMPTOMS AND NO UNPLANNED HOSPITALIZATIONS BY 05/05/25.GoalProvider Goal - PATIENT WILL DEMONSTRATE COMPLIANCE WITH MEDICATIONS PRESCRIBED. PATIENT/CAREGIVER WILL VERBALIZE/DEMONSTRATE UNDERSTANDING OF MEDICATION SCHEDULE, PURPOSE, SIDE EFFECTS AND AND ANY SPECIAL PRECAUTIONS RELATED TO MEDICATION REGIMEN BY 05/03/25.GoalProvider Goal - PATIENT/CAREGIVER WILL VERBALIZE/DEMONSTRATE ABILITY TO MANAGE PARENTERAL NUTRITIONADEQUATELY EVIDENCED BY CONSISTENT RETURN DEMONSTRATIONS USING PROPER TECHNIQUE, ABILITY TO STATE SIGNS/SYMPTOMS TO BE REPORTED TO NURSE AND IV NUTRITIONALS ADMINISTERED PER ORDERS BY 04/23/25GoalProvider Goal - INEFFECTIVE ANTICOAGULATION THERAPY, EVIDENCED BY SIGNS/SYMPTOMS OF EXCESSIVE BLEEDING, WILL BE IDENTIFIED AND PROMPTLY REPORTED TO THE PHYSICIAN. PATIENT/CAREGIVER WILL VERBALIZE/DEMONSTRATE UNDERSTANDING OF MEASURES TO MAINTAIN EFFECTIVE ANTICOAGULATION THERAPY BY 05/05/2025GoalProvider Goal - A PLAN OF CARE WILL BE ESTABLISHED THAT MEETS THE PATIENT'S NURSING NEEDS AND COUNTERSIGNED BY PHYSICIAN.GoalProvider Goal - PATIENT/CAREGIVER WILL VERBALIZE UNDERSTANDING OF PURPOSE OF SPECIMEN COLLECTION AND LAB RESULTS ARE REPORTED TO PHYSICIAN.GoalProvider Goal - CHANGES IN PATIENT CO-MORBID STATUS WILL BE PROMPTLY IDENTIFIED AND REPORTED TO THEPHYSICIAN. PATIENT/CAREGIVER VERBALIZE/DEMONSTRATE MEASURES TO PREVENT FALLS BY 05/05/2025 GoalProvider Goal - CHANGES IN PATIENT CO-MORBID STATUS WILL BE PROMPTLY IDENTIFIED AND REPORTED TO THEPHYSICIAN. PATIENT/CAREGIVER VERBALIZE/DEMONSTRATE ABILITY TO PROPERLY MANAGE DEPRESSION BY 05/02/25.GoalProvider Goal - CHANGES IN PATIENT CO-MORBID STATUS WILL BE PROMPTLY IDENTIFIED AND REPORTED TO THE PHYSICIAN. PATIENT/CAREGIVER VERBALIZE/DEMONSTRATE ABILITY TO PROPERLY MANAGE PAIN BY 05/10/2025GoalProvider Goal -GoalProvider Goal - PATIENT/CAREGIVER WILL VERBALIZE/DEMONSTRATE UNDERSTANDING OF SYMPTOM MANAGEMENT, RESOURCE UTILIZATION, AND MEDICATION MANAGEMENT TO REDUCE UNPLANNED HOSPITAL OR EMERGENCY DEPARTMENT V ISITS BY 05/19/25.GoalProvider Goal -GoalProvider Goal -GoalProvider Goal - SIGNS AND SYMPTOMS OF OCCLUSION / INFECTION / INFILTRATION / PHLEBITIS WILL BE IDENTIFIED AND REPORTED TO PHYSICIAN FOR CHANGES IN PLAN OF CARE.GoalProvider Goal - PATIENT / CAREGIVER WILL DEMONSTRATE INDEPENDENCE IN ADMINISTRATION OF INFUSION THERAPY BY 04/13/2025GoalProvider Goal - PATIENT WILL REMAIN FREE OF VASCULAR ACCESS DEVICE COMPLICATIONS THOUGHOUT THERAPY.GoalProvider Goal - PATIENT WILL RECEIVE ADMINISTRATION OF ORDERED INFUSION MEDICATION IN A TIMELY AND SAFE MANNER. Encounters Start Date/Time End Date/Time Encounter Type Admission Type Attending Rust Care Department Encounter ID Discharge Date Discharge Status Discharge Condition Discharge Reason Percent Goals Met 2025-04-11 00:00:00 2025-06-09 00:00:00 Outpatient NEW IS KANE GAUTHIER [id number]
== END 2025-05-07 11:28 | disposition home or self-care (01) ==
LOC: LAB 11:27
PROVIDERS: PCP Student in an Organized Health Care Education/Training Program; Visit Provider Student in an Organized Health Care Education/Training Program
DX: E44.1 Mild protein-calorie malnutrition (principal)
CPT/HCPCS: 36415; 80053; 83735; 84100; 85025

== ENCOUNTER 2025-05-21 13:04 | Outpatient (REF) | payer OTHER, SELFPAY ==
--- OUTSIDE RECORDS SUMMARY | 2025-05-21 13:16 | XMS_ITS | CCD ---
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 Role Phone No, Physician Unavailable Unavailable No, Physician Primary Care Provider UnavailAustin Kapoor Unavailable JOSEFINA, PHYSICIAN Primary Care Unavailable ASHLEY AL Attending Unavailable ASHLEY AL Admitting Unavailable ASHLEY AL Referring Unavailable NO, PHYSICIAN Primary Care Unavailable Josefina, Physician Primary Care Provider UnavailAustin Kapoor Unavailable Abdiel Smithahim Ali Primary Care Provider Francine Guzman Unavailable Unavailable Austin Dc MD Unavailable [phone] Sarah TALAMANTES, Abdiel Gamez [facility] Francine Ruiz Unavailable Unavailable ABDIEL SMITHAHIM ALI Attending Unava ilable SMITH MEADOWS MENJIVAR ALI Primary Care Unava ilable FRANCINE GUZMAN Attending Unavailable SMITHSLOANE AGUIRREMEADOWS MENJIAVR ALI Primary Care Unava ilable SMITH, MEADOWS [...] Care Unava ilable Austin Dc MD Unavailable [phone] Sarah TALAMANTES, Abdiel Patinoahim Ali Primary Care Provi xavier Thomas PIMENTELW, Francine Unavailable Unavailable JUAN SAHNI Attending Unavailable NO, PHYSICIAN Primary Care Unavailable [facility] Consulting UnavaÁNGEL Michele Admitting Unavailable THERESA, AKEEK SANAT Consulting Unavailable KEVIN CROCKETT Consulting Unavaila ble SMITH, MEADOWS MENJIVAR ALI Attending Unava ilable SMITH, MEADOWS MENJIVAR ALI Referring Unava ilable SMITH, MEADOWS MENJIVAR ALI Primary Care Unava ilable SMITH, MEADOWS MENJIVAR ALI Primary Care Unava ilable THERESA, AKEEK SANAT Admitting Unavailable SMITH, MEADOWS MENJIVAR ALI Primary Care Unava ilable THERESA, AKEEK SANAT Admitting Unavailable SMITH, MEADOWS MENJIVAR ALI Primary Care Unava ilable THERESA, AKEEK SANAT Admitting Unavailable SMITH, MEADOWS MENJIVAR ALI Primary Care Unava ilable THERESA, AKEEK SANAT Admitting Unavailable SMITH, MEADOWS MENJIVAR ALI Primary Care Unava ilable Sarah TALAMANTES, Abdiel Patinoahim Ali Primary Care Provi xavier Thomas TEIXEIRA, Francine Unavailable Unavailable NO, PHYSICIAN Primary Care Unavailable SCAR MONTANEZ Admitting Unavaila ble SCAR MONTANEZ Attending Unavaila ble [facility] [facility] Consulting Hillary London Sanderson Attending Unavailable DR JELLY OLIVA Admitting Unavailable TIMMIS, DR REAVES Attending Unavailable REQUEST, NONE LISTED Primary Care Unavaila ble TIMMIS, DR REAVSE Consulting Unavailable TIMMIS, DR REAVES Admitting Unavailable [...] Unava ilable DO Ean Jacques Emergency Provider [phone] Ambika Dalia Unavailable Arthur Mcclain Unavailable DO Ambika Dalia A Primary Care Provider DO Ambika Dalia A Attending Provider DO Arthur Mcclain A Attending Provider Jennifer Brody Unavailable MD Jennifer Brody Attending Provider Ivonne Martinez Unavailable AppleDO Dalia A Primary Care Provider DO Arthur Mcclain A Attending Provider Ambika DO Dalia A Attending Provider Ambika DO Dalia A Primary Care Provider DO Arthur Mcclain A Attending Provider Apple DO Dalia A Primary Care Provider AppleDO Dalia A Attending Provider Unavailable Primary Care Provider Unavailabl e NO PCP, NO PCP Primary Care Unavailable EV REDMAN Attending Unavailable Apple DO Dalia A Primary Care Provider MD Jennifer Brody Attending Provider APPLE, DALIA A Referring Unavailable APPLE, DALIA A Primary Care Unavailable AMI JETER Attending Unavailable AMI JETER Referring Unavailable APPLE, DALIA A Primary Care Unavailable NO PCP, NO PCP Primary Care Unavailable MARIXA BARRIENTOS Attending Unavailable DIMAS, AIJAZ Admitting Unavailable DIMAS, AIJAZ Attending Unavailable Apple DO, Dalia A Primary Care Provider Unavailable Primary Care Provider UnavailMaru Enicso MD Attending Provider No Pcp, No Pcp Primary Care Provider Unavailabl e Asaoctavio Imad Admitting Unavailable Jennifer Brody Attending Unavailable Apple, Dalia A Primary Care Unavailable Dimas, Aijaz A Admitting Unavailable Dimas, Aijaz A Attending Unavailable Dalia Apple MD A Primary Care Provider YAZMIN HIGGINS Consulting Unavailable HARDY GAMEZ Attending Unavailable MAI MERCADOIN Admitting Unavailable DIMAS, AIJAZ Consulting Unavailable ALIX ACOSTA Consulting Unavaila ble JAXSON SCANLON Consulting Unavailable ELIZABETH MARCELO Consulting Unavailable ELOY ANDERS Admitting Unavailable NEREYDA LUCAS Attending Unavail able APPLE, DALIA A Primary Care Unavailable DAPHNEY WALSH Consulting Unavailable ALIX ACOSTA Consulting Unavaila ble JUJUUAJEN KraftMANJIT T Consulting Unavailable PORFIRIO GARCÍA Admitting Unavailable PORFIRIO GARCÍA Attending Unavailable ISABELLE GANDHI Consulting Unavailable MICHELLE WOODY Attending Unavailable SHAYNA US Attending Unavailable APPLE, DALIA A Primary Care Unavailable GHASSAN ANGULO Admitting Unavailable GHASSAN ANGULO Attending Unavailable BERNA CARRERA Primary Care Unavailable RashidAndrea patel DOzah Unavailable Ambika DO, Dalia A Primary Care Provider Apple DO Dalia A Attending Provider RASHID, KUNZAH Referring Unavailable APPLE, DALIA A Primary Care Unavailable APPLE, DALIA A Primary Care Unavailable RASHID, KUNZAH Referring Unavailable LENTZ, MANDEEPK GARCIA Referring Unavailable MCCAUSLAND, BERNADETTE Referring Unavailable FLORENTINO, OBDULIA Attending Unavailable GIULIANA BONILLAICA Attending Unavailable MARIAM DUPONT Attending Unavailable SELF Referring Unavailable SANKOVIC, OBDULIA Referring Unavailable HIRAM PATEL Attending Unavailable LENTZ, MANDEEPK GARCIA Referring Unavailable [place]CCA[place], BERNADETTE Referring Unavailable MARIAM DUPONT Referring Unavailable MARIAM DUPONT Attending Unavailable RASHID, KUNZAH Referring Unavailable KIKO FELIZ, ARMAND Referring Unavailable BUBBA JOHNSON Attending Unavailable TRE BRIDGES Attending Unavailable ENE BHAGAT Attending Unavailable SOHAM ELSY Admitting Unavailable SOHAM, ELSY Attending Unavailable SOHAM, ELSY Referring Unavailable CHANTEL COTTRELL Attending Unavailable RASHID, KUNZAH Referring Unavailable FLORENTINO, OBDULIA Referring Unavailable GIULIANA BONILLAICA Referring Unavailable KIKO FELIZ, ARMAND Attending Unavailable SELF Referring Unavailable RASHID, KUNZAH Attending Unavailable TRE BRIDGES Attending Unavailable TIANNA CODY Referring Unavailable RASHID, KUNZAH Referring Unavailable MARIAM DUPONT Referring Unavailable MARIAM DUPONT Attending Unavailable ALIX RIDDLE Referring Unavailable RASHID, KUNZAH Referring Unavailable RASHID, KUNZAH Attending Unavailable KIKO FEILZ, ARMAND Referring Unavailable BRANDAN, MONET Referring Unavailable SELF Referring Unavailable SELF Referring Unavailable SELF Referring Unavailable KIKO FELIZ, ARMAND Referring Unavailable SELF Referring Unavailable MCCAUSLAND, BERNADETTE Referring Unavailable LENTZ, MANDEEPK GARCIA Referring Unavailable MARIAM DUPONT Referring Unavailable MARIAM DUPONT Referring Unavailable MARIAM DUPONT Attending Unavailable KIKO FELIZ, ARMAND Attending Unavailable LENTZ, MANDEEPK GARCIA Referring Unavailable SOHAM, ELSY Referring Unavailable KIKO FELIZ, ARMAND Referring Unavailable LENTZ, MANDEEPK GARCAI Referring Unavailable FARTUN CARPIO Attending Unavailable SELF Referring Unavailable SOHAM ELSY Attending Unavailable MCCAUS[place], BERNADETTE Referring Unavailable MCCAUS[place], BERNADETTE Referring Unavailable KIKO FELIZ, ARMAND Attending Unavailable SOHAM, ELSY Referring Unavailable SOHAM, ELSY Referring Unavailable LANIE GUILLEN Attending Unavailable SOHMA, ELSY Referring Unavailable YULIANA, TRE Attending Unavailable Allergies Allergy ClassificationReported Allergen(s)Allergy TypeDate of OnsetReaction(s) Facilitycow milk allergenic extract (4 sources)cow milk allergenic extractDrug Uszgbpa51-62-2422CghtenntQqbmAlhftc Dairy (not specified as lactose intolerance) (2 sources)Milk; Translations: [MILK]Food Hlbmcll83-09-9977[facility] Three RepositoryGrains (2 sources)Gluten; Translations: [GLUTEN]Food Npbpuza46-52-4525[facility] Three RepositoryWheat gluten extract (4 sources)Wheat gluten extractDrug Qahtjzg23-37-8730ZluqrjkxFjzpYvdorj Work Phone: (20 sources)cow milk allergenic extract; Translations: [MILK]Drug Allergy 95-92-7047SiwrerieJjsyLeoxpe (20 sources)Wheat gluten extract; Translations: [GLUTEN]Drug Hfprdcb40-53-0853 DiarrheaCaioSt. [facility] (20 sources)NSAIDs; Translations: [NSAIDS (NON-STEROIDAL ANTI-INFLAMMATORY DRUG)]Drug allergy (disorder)86-93-8340Exzig: See Comments[facility] Rep[facility] (20 sources)Ibuprofen; Translations: [ibuprofen]Drug Llqjjvo04-83-5244Hrdvm: See Comments[facility] (12 sources)Non-steroidal anti-inflammatory agentPropensity to adverse reactions to ppdf06-37-3688Xblqd: See CommentsT[facility] (16 sources)Non-steroidal anti-inflammatory agentPropensity to adverse reactions to ptnx99-43-6331Gqydq: See CommentsUniversity [facility] Medications Current Medications MedicationDrug Class(es)DatesSig (Normalized)Sig (Original)24 HR upadacitinib 45 MG Extended Release Oral Tablet [Rinvoq] (11 sources)take 45 mg by mouth once dailyRinvoq 45 MG as directed Orally Once a day for 30 days ActiveRinvoq 45 MG as directed Orally Activeacetaminophen 32 mg/ml oral solution (20 sources)Start: 01-26-6729lmfq 650 mg by mouth every six hours as needed acetaminophen (TYLENOL) 650 mg/20.3 mL soln Take 20.3 mL by mouth every 6 hours as needed for pain.Do not exceed 5 doses in 24 hours. 02/23/2025 ActiveStart: 01-02-2025 End: 25-48-4903etvk 1 dose by mouth oatc834 mg, ORAL, ONCE, 1 dose, On Wed01/02/25 at 1530Start: 08-07-2024 End: 17-49-1258tyam 2 tablets by mouth every six hours as neededacetaminophen (TYLENOL) 500 mg tablet Take 2 tablets by mouth every 6 hours as needed (mild, moderate pain). 30 tablet 08/08/2024 12:15 PM EST 08/07/2024 02/14/2025 Discontinued (Discontinued by Patient)Start: 74-55-8041pszlqgbhiprhu (TYLENOL) tablet 650 mgStart: 85-52-3222sqvmsabdygaxz (TYLENOL) tablet 650 mgStart: 06-04-2020 End: 67-72-2014yoxl 2 tablets by mouth every six hours as neededacetaminophen (TYLENOL) 500 MG tablet Take 2 (two) tablets (1,000 mg total) by mouth every 6 (six) hours as needed for pain . 30 tablet 0 06/04/2020 06/14/2020 ActiveStart: 05-31-2020 End: 34-04-1468wxsf 1 tablet by mouth every four hours as mg, Oral, Every 4 hours PRN, mild pain, fever 100.4 F or greater, headaches, Starting 05/31/20 at 0013Start: 05-01-2018 End: 06-18-2607oazu 2 tablets by mouth every four hours as neededacetaminophen (TYLENOL) 325 MG tablet Take 2 (two) tablets (650 mg total) by mouth every 4 (four) hours as needed. 30 tablet 0 05/01/2018 05/11/2018 ActiveStart: 04-30-2018 End: 70-67-6240haog 2 tablets by mouth every four hours as needed0.4 ml adalimumab 100 mg/ml auto-injector (20 sources)Tumor Necrosis Factor BlockerStart: 58-10-6177gifviqbozq 40 mg/0.4 mL PnKt Indications: Crohn's disease of small intestine without complication (H CC) 160 mg on day 1, 80 mg on day 15, 40 mg on day 29 then 40 mg every 14 days. . 4 kit 1 07/29/2020 Active End: 18-42-7513dztofw 40 mg by subcutaneous injection onceadalimumab (HUMIRA) 40 mg/0.8 mL injection Inject 40 mg under the skin once. 0 08/18/2023 Discontinued (Therapy completed)200 actuat albuterol 0.09 mg/actuat metered dose inhaler (1 source)beta2-Adrenergic AgonistStart: 09-10-2018 End: 35-64-6997fhsl 2 puff(s) by inhalation every six hours as needed for wheezingalbuterol 90 mcg/actuation inhaler Indications: Bronchitis , Cough Inhale 2 (two) puffs every 6 (six) hours as needed for wheezing . 6.7 g 0 09/10/2018 09/17/2018 Activealteplase (CATHFLO) 2 mg injection (1 source)Start: 08-31-2024 End: 68-85-2141sjewfvawy (CATHFLO) 2 mg injection Indications: Occlusion of peripherally inserted central catheter(PICC) line, initial encounter (HCC) 4 mL by INTRALUMINAL route one time only for 1 dose. Instill per protocol 2 mg/2 ml into each lumen of double lumen PICC line 4 mL 08/31/2024 08/31/2024 Active amitriptyline hydrochloride 25 mg oral tablet (20 sources)Tricyclic AntidepressantStart: 05-07-2024 End: 10-44-5523tpfk 1 tablet by mouth once dailyAmitriptyline 25 mg tablet Active 25 MG PO Daily April 30, 2025 12:00am Complies with drug therapy apixaban 5 mg oral tablet (20 sources)Factor Xa InhibitorStart: 10-01-2024 End: 93-50-4920emoh 1 tablet by mouth every twelve hoursapixaban (ELIQUIS) 5 mg tab(s) Take 1 tablet by mouth every 12 hours. Please start Eliquis after fin lennieing Lovenox prescription. Patient should start on October 01, 2024. 60 tablet 1 08/30/2024 3:08 PMEST 10/01/2024 11/30/2024 ActiveStart: 09-06-2024 End: 40-58-3369famp 2 tablets by mouth twice daily, then take 1 tablet by mouth twice dailyapixaban (ELIQUIS) 5 mg tab(s) Take 2 tablets (10 mg) by mouth twice daily for 7 days. Then take 1 tablet (5 mg) by mouth twice daily for 23 days 74 tablet 09/06/2024 11/03/2024 DiscontinuedStart: 08-29-2024 End: 68-92-0754eeja 2 tablets by mouth twice daily, then take 1 tablet by mouth twice dailyapixaban (ELIQUIS DVT-PE TREAT 30D START) 5 mg (74 tabs) Take 2 tablets (10 mg) by mouth twice daily for 7 days. Then take 1 tablet (5 mg) by mouth twice daily for 23 days 74 tablet 08/29/2024 08/29/2024 Discontinued azaTHIOprine 50 mg oral tablet (20 sources)Purine AntimetaboliteStart: 09-02-2020 End: 41-58-6172rgxd 2 tablets by mouth once dailyazaTHIOprine (IMURAN) 50 mg tablet Take 2 (two) tablets (100 mg total) by mouth daily . 60 tablet 11 01/23/2021 02/22/2021 ActiveStart: 06-18-2020 End: 20-36-8398fbbZZYQkepic (IMURAN) 50 mg tabletazithromycin 250 mg oral tablet (1 source)Macrolide AntimicrobialStart: 09-10-2018 End: 69-71-9086vhhicvkynbtn (ZITHROMAX) 250 MG tablet Indications: Bronchitis , Cough Take 2 tablets (500 mg) on Day 1, followed by 1 tablet (250 mg) once daily on Days 2 through 5. . 6 tablet 0 09/10/2018 09/15/2018 Activebenzonatate 100 mg oral capsule (1 source)Non-narcotic AntitussiveStart: 09-10-2018 End: 98-91-5290evsd 1 capsule by mouth every six hours as neededbenzonatate (TESSALON PERLES) 100 MG capsule Indications: Bronchitis , Cough Take 1 (one) capsule (100 mg total) by mouth every 6 (six) hours as needed . 20 capsule 0 09/10/2018 09/17/2018 Activebisacodyl 10 mg rectal suppository (2 sources)Stimulant LaxativeStart: 38-47-6833Llxzn: 04-03-2024 End: 18-40-2242hpcrenzmo 5 MG EC tablet Take as directed for bowel prep/colonoscopy 4 tablet 04/03/2024 05/09/2024iscontinued (Stop Taking at Discharge)budesonide 3 mg delayed release oral capsule (5 sources)CorticosteroidStart: 08-08-2024 End: 87-38-5978ynqw 1 capsule by mouth every twenty-four hoursbudesonide, enteric coated (ENTOCORT EC) 3 mg 24 hr capsule Take 3 capsules by mouth once daily for23 doses. 69 capsule 08/08/2024 12:15 PM EST 08/08/2024 08/31/2024 Activecephalexin 500 mg oral capsule (2 sources)Cephalosporin AntibacterialStart: 67-29-6154rirn 1 capsule by mouth every eight hoursCephalexin 500 MG 1 capsule Orally every 8 hrs for 7 days May, Activecholecalciferol 0.025 mg oral capsule (20 sources)Vitamin DStart: 16-45-4038dfnv 1 capsule by mouth once daily Cholecalciferol (Vitamin D3) 25 mcg (1,000 unit) capsule Active 25 MCG PO Daily April 30, 2025 12:00am Complies with drug therapyStart: 50-71-2948ubfk 1 tablet by mouth once dailyCholecalciferol (VITAMIN D) 25 MCG TABS Take 1 tablet by mouth daily 60 tablet 01/29/2024 ActiveCholecalciferol, Vitamin D3, (VITAMIN D) 25 mcg (1,000 unit) cap Take 1,000 Units by mouth once daily. ActivediazePAM 2 mg oral tablet (8 sources)BenzodiazepineStart: 02-23-2025 End: 61-75-5465hlal 1 tablet by mouth every six hours as needed for paindiazePAM (VALIUM) 2 mg tablet Indications: Postoperative pain Take 1 tablet by mouth every 6 hours as needed (pain) for up to 7 days. 28 tablet 02/23/2025 2:47 PM EDT 02/23/2025 03/02/2025 ActiveStart: 08-30-2024 End: 51-68-7091jybshAGE (VALIUM) 5 mg tablet Indications: Post-op pain Take 1 tablet by mouth every 6 hours as needed for muscle spasm or pain for up to 7 days. Do not take oxycodone and valium at the same time. Please spread out these medications by 2-3 hours. 28 tablet 08/30/2024 3:08 PM EST 08/30/2024 ActiveStart: 19-53-5366eqnj 5 mg by mouth every six hours as needed5 mg, Oral, EVERY 6 HOURS PRN, Starting on Wed05/03/24 at 1021, Until Discontinued, Anxiety, Agitation, Muscle spasmsStart: 05-02-2024 End: 57-18-0700jidh 1 dose by mouth once5 mg, Oral, ONCE, 1 dose, On Wed05/02/24 at 1200dicyclomine hydrochloride 10 mg oral capsule (20 sources)AnticholinergicStart: 16-79-7520voqx 1 capsule by mouth three times dailydicyclomine (BENTYL) 10 MG capsule Take 1 capsule by mouth 3 times daily 120 capsule 3 05/09/2024 ActiveStart: 01-28-2024 End: 34-06-2377xkqe 2 capsules by mouth three times daily as needed for pain and muscle spasmsdicyclomine (BENTYL) 10 MG capsule Take 2 capsules by mouth 3 times daily as needed (for abdominal pain and spasms , before meals) 120 capsule 3 01/28/2024 05/09/2024 Discontinued (Stop Taking at Discharge)Start: 84-00-7886yauf 2 capsules by mouth four times daily as neededDicyclomine 10 mg capsule Active 20 MG PO Four times daily as needed December 21, 2023 12:00am Complies with drug therapyStart: 25-76-2443kdwx 20 mg by mouth four times daily Dicyclomine Active 20 MG PO Four times daily December 21, 2023 12:00amStart: 06-04-2020 End: 63-80-5342ekif 1 capsule by mouth four times daily before mealtime dicyclomine (BENTYL) 10 MG capsule Take 1 (one) capsule (10 mg total) by mouth 4 (four) times a daybefore meals and nightly . 120 capsule 0 06/04/2020 Active take 2 capsules by mouth every six hoursDicyclomine HCl 10 MG 2 capsules Orally Four times a day PRN Activedocusate sodium 100 mg oral capsule (1 source)Start: 05-09-2024 End: 09-36-7047dnve 1 capsule by mouth twice dailydocusate sodium (COLACE) 100 MG capsule Take 1 capsule by mouth 2 times daily for 5 days 10 mnoeaef4605/09/2024 05/14/2024 Activedoxycycline hyclate 100 mg oral capsule (1 source)Tetracycline-class DrugStart: 08-18-2023 End: 97-60-2940qbri 1 capsule by mouth in the morning, then take 1 capsule by mouth at bedtimedoxycycline (VIBRAMYCIN) 100 mg capsule Indications: Infected cyst of skin Take 1 capsule (100 mg total) by mouth in the morning and 1 capsule (100 mg total) before bedtime. Do all this for 5 days. 10 capsule 0 08/18/2023 08/23/2023 Active1 ml enoxaparin sodium 100 mg/ml prefilled syringe (20 sources)Low Molecular Weight HeparinStart: 26-77-5476jjtuwv 1 mg by subcutaneous injection once dailyEnoxaparin 100 mg/mL syringe Active MG SUBCUT Daily April 30, 2025 12:00am Complies with drug therapyStart: 02-23-2025 inject 0.975 mL by subcutaneous injection once dailyenoxaparin (LOVENOX) 100 mg/mL syrg Inject 0.975 mL subcutaneously once daily. Please inject full co ntents of syringe daily. 30 each 1 02/23/2025 ActiveStart: 10-20-2024 End: 88-45-3742atsmtf 0.625 mL by subcutaneous injection once dailyenoxaparin (LOVENOX) 80 mg/0.8 mL Indications: Acute deep vein thrombosis (DVT) of axillary vein ofleft upper extremity (HCC) , Anticoagulation management encounter , Acute deep vein thrombosis (DVT) of brachial vein of right upper extremity (HCC) Inject 0.625 mL subcutaneously once daily. Inject entire contents of one(1) syringe 12/29/2024 02/27/2025 SuspendedStart: 08-31-2024 End: 95-83-2180fkpvil 72.5 mg by subcutaneous injection every twenty-four hours enoxaparin (LOVENOX) 80 mg/0.8 mL Inject 0.7 mL subcutaneously every 24 hours. Please eject 0.1 mL of fluid from syringe into trash. Inject the remaining fluid into the subcutaneous tissue. 24 mL 08/30/2024 3:08 PM EST 08/31/2024 09/30/2024 ExpiredStart: 08-29-2024 End: 62-39-0488himynd 47.5 mg by subcutaneous injection every twelve hours enoxaparin (LOVENOX) 60 mg/0.6 mL syrg Inject 0.5 mL subcutaneously every 12 hours. (Please eject 0.1 mL of the syringe into the trash can. Inject remaining 0.5 mL of Lovenox.) 36 mL 2 08/29/2024 08/29/2024 DiscontinuedStart: 07-20-2024 inject 40 mg by subcutaneous injection once daily40 mg, SubCUTAneous, DAILY, First dose on Wilma 07/20/24 at 0900, Until Discontinued, Indication of Use: Treatment-DVT/PE, Administer by deep subCUTAneous injection with pt lying down. Alternate injection sites on abdominal wall. Do not rub site after injection. Check with provider prior to any invasive procedure.Start: 05-31-2020 End: 00-55-5166suclyf 40 mg by subcutaneous injection once daily40 mg, Subcutaneous, Daily, First dose on Wed05/31/20 at 0800 Administer in abdomen unless otherwise directed by prescriber. Notify physician if patient refuses. Indication: VTE ProphylaxisStart: 04-30-2018 End: 78-93-6470raextjv contrast (will be provided with radiology test) (5 sources)Start: 09-28-2024 End: 35-10-1193dpwvsrb contrast (will be provided with radiology test) For CT ABD/PEL W IVCON Routine order Administer, As Directed One Time Only, via Oral, Rectal, both Oral and Rectal, Enteric Tube, Stoma or Indwelling Catheter, Enteric Contrast as designated per enteric contrast guidelines 1 Each 09/28/2024 09/29/2024 ActiveStart: 09-28-2024 End: 70-31-5760pekiezy contrast (will be provided with radiology test) For CT ENTEROGRAPHY W IVCON order Administer, As Directed One Time Only, via Oral, Rectal, both Oral and Rectal, Enteric Tube, Stoma or Indwelling Catheter, Enteric Contrast as designated per enteric contrast guidelines. 1 Each 09/28/2024 09/28/2024 DiscontinuedStart: 08-04-2024 End: 83-64-8277verinue contrast (will be provided with radiology test) Indications: Crohn's disease of both small and large intestine with abscess (HCC) For CT ENTEROGRAPHY W IVCON order Administer, As Directed OneTime Only, via Oral, Rectal, both Oral and Rectal, Enteric Tube, Stoma or Indwelling Catheter, Enteric Contrast as designated per enteric contrast guidelines. 1 Each 08/04/2024 08/05/2024 Expiredertapenem (INVANZ) infusion (1 source)Start: 07-29-2024 End: 68-07-1119pureebmcm (INVANZ) infusion Infuse 1,000 mg intravenously every 24 hours for 28 days 28 days then get a repeat CTA ;look for resolution of the abscess Cbc diff creat weekly - no ;line draws 28 g 07/29/2024 08/26/2024 Active ethinol (1 source)Start: 82-03-6476Kbdmw (1 source)Start: 24-67-6002thpszlbkgqu 150 mg oral tablet (6 sources)Azole AntifungalStart: 66-68-0306Naioiqpfvgb 150 MG 1 tablet Orally once, can repeat dosage in 2-3 days if symptoms not improved for2 days May, ActiveStart: 06-12-2020 End: 67-91-5663ywzc 1 tablet by mouth once dailyfluconazole (Diflucan) 200 MG tablet Indications: Yeast infection Take 1 (one) tablet (200 mg total) by mouth daily for 10 days . 10 tablet 0 06/12/2020 06/22/2020 ActivehydrOXYzine hydrochloride 25 mg oral tablet (20 sources)AntihistamineStart: 07-21-2024 End: 01-05-6838sijt 25 mg by mouth once daily as needed for sleep25 mg, Oral, NIGHTLY PRN, Starting on Wed07/21/24 at 2100, Until 08/20/24 at 2058, sleep Start: 12-27-2023 End: 00-29-1562fwta 1 tablet by mouth every six hours as neededhydrOXYzine (ATARAX) 25 mg tablet Take 1 tablet (25 mg total) by mouth every 6 (six) hours as needed for itching. 12 tablet 12/27/2023 04/22/2024 DiscontinuedStart: 02-16-2023 End: 40-60-2728Sugxamvksxh Hcl 25 mg tablet Discontinued 12.5 MG PO Four times daily as needed for Anxiety February 16, 2023 12:00am April 30, 2025 3:56pm Start: 85-25-2733iwgk 12.5 mg by mouth four times dailyHydroxyzine Hcl Active 12.5 MG PO Four times daily February 16, 2023 12:00amtake 1 tablet by mouth every eight hours as neededhydrOXYzine HCl (ATARAX) 25 mg tablet Take 25 mg by mouth three times a day as needed for anxiety. Activetake 0.5 tablet by mouth four times daily as neededhydrOXYzine HCl 25 MG 1/2 tablet as needed Orally four times a day for 30 days PRN Activeiron sucrose (VENOFER) 200 mg in sodium chloride 0.9 % 100 mL IVPB (1 source)Start: 05-08-2024 End: mg, IntraVENous, at 440 mL/hr, Administer over 15 Minutes, EVERY 24 HOURS, First dose on Wed05/08/24 at 1300, For 3 dosesiv contrast (will be provided with radiology test) (5 sources)Start: 09-28-2024 End: 95-52-7113yr contrast (will be provided with radiology test) CT ABD/PEL - Inject, intravenously, once for 1 dose.No IV access, insert saline lock prior to the beginning of sedation, infusion, injection of imaging exam. Discontinue saline lock post exam. If Pt. has a central line or IVAD, may access for adminis tration according to line specific nursing protocol. Once exam is complete flush line and de-accessaccording to line specific nursing protocol in the CT contrast administration guidelines link. 1 Each 09/28/2024 09/29/2024 Active Start: 09-28-2024 End: 46-10-0160kd contrast (will be provided with radiology test) CT Enterography W Inject, intravenously, once for 1 dose.No IV access, insert saline lock prior to the beginning of sedation, infusion, injection ofimaging exam. Discontinue saline lock post exam. If Pt. has a central line or IVAD, may access for administration according to line specific nursing protocol. Once exam is complete flush line and de-access according to line specific nursing protocol in the CT contrast administration guidelines link. 1 Each 09/28/2024 09/28/2024 DiscontinuedStart: 08-04-2024 End: 47-24-6687pk contrast (will be provided with radiology test) Indications: Crohn's disease of [...] administration guidelines link. 1 Each 08/04/2024 08/05/2024 Expired1 ml ketorolac tromethamine 15 mg/ml cartridge (3 sources)Nonsteroidal Anti-inflammatory Drug, Cyclooxygenase InhibitorStart: 07-29-2024 End: 98-21-454160 mg, IntraVENous, EVERY 6 HOURS PRN, Starting on 07/29/24 at 0802, Until Wilma 08/03/24 at 0801, Pain Moderate (4-6), Do not administer for more than 5 daysStart: 07-28-2024 End: mg, IntraVENous, ONCE, 1 dose, On 07/28/24 at 1745, Do not administer for more than 5 daysStart: 05-31-2020 End: 06-49-9873mjtlgwqxd (TORADOL) injection 15 mgLactobacillus acidophilus (20 sources)take 1 capsule by mouth once dailyLactobacillus acidophilus (PROBIOTIC ACIDOPHILUS ORAL) Take 1 capsule by mouth once daily Suspendedtake 1 capsule by mouth once dailyLactobacillus acidophilus (PROBIOTIC ACIDOPHILUS ORAL) Take 1 capsule by mouth once daily Activelidocaine 0.04 mg/mg medicated patch (3 sources)Antiarrhythmic, Amide Local AnestheticStart: 02-24-2025 End: 55-41-4428skzdjwvgd (SALONPAS) 4 % patch Apply 2 patches as directed once daily for 5 days. 10 patch 02/23/2025 2:47 PM EDT 02/24/2025 03/01/2025 Active Start: 06-05-2024 End: 13-62-7282rrot 1 dose intravenously once daily1 mL, IntraDERmal, ONCE PRN, 1 dose, Starting on 06/05/24 at 0836, Until 06/05/24 at 0905, IVstart, Pre-op (day of surgery)methocarbamol 500 mg oral tablet (7 sources)Muscle RelaxantStart: 02-23-2025 End: 77-35-8508rtgu 1 tablet by mouth three times daily as neededmethocarbamol (ROBAXIN) 500 mg tablet Indications: Postoperative pain Take 1 tablet by mouth three times a day as needed for up to 7 days. 21 tablet 02/23/2025 2:47 PM EDT 02/23/2025 03/02/2025 ActiveStart: 04-30-2018 End: 79-43-9725wgag 1 tablet by mouth three times daily as needed for muscle spasmsmethocarbamol (ROBAXIN) 500 MG tablet Take 1 (one) tablet (500 mg total) by mouth 3 (three) times aday as needed for muscle spasms. 30 tablet 0 05/01/2018 05/11/2018 ActivemethylPREDNISolone sodium succ (SOLU-MEDROL) 40 mg in sterile water 1 mL injection (1 source)Start: 66-46-190952 mg, IntraVENous, DAILY, First dose on Wed05/09/24 at 1500, Reconstitute each 40 mg vial with 1 mL of diluent.midodrine hydrochloride 10 mg oral tablet (20 sources)alpha-Adrenergic AgonistStart: 07-30-2024 End: 63-26-3747oeny 1 tablet by mouth three times daily at mealtimemidodrine (PROAMATINE) 10 MG tablet Take 1 tablet by mouth 3 times daily (with meals) 90 tablet 3 07/30/2024 ActiveStart: 63-97-4251ftdv 10 mg by mouth once at hkcrbbi12 mg, Oral, Once, 1 dose, On Wed07/29/24 at 0630, Do not give after 1800 or within 4 hrs of bedtime.Start: 31-16-3415qtbx 10 mg by mouth three times daily at lfmelbru13 mg, Oral, 3 TIMES DAILY WITH MEALS, First dose (after last modification) on Wed07/27/24 at 1200,Until Discontinued, Do not give after 1800 or within 4 hrs of bedtime.Start: 07-25-2024 End: 09-65-6338nlki 5 mg by mouth three times daily at mealtime5 mg, Oral, 3 TIMES DAILY WITH MEALS, First dose on Wed07/25/24 at 1300, Until Discontinued, Do notgive after 1800 or within 4 hrs of bedtime.naloxone hydrochloride 40 mg/ml nasal spray (15 sources)Opioid AntagonistStart: 58-16-7973junymaov 4 mg/actuation nasal spray (NARCAN) Use 1 spray in one nostril as needed for overdose. Mayrepeat every 2 to 3 min in alternating nostrils until medical assistance is available 2 each 1 02/23/2025 2:47 PM EDT 02/23/2025 Activenitrofurantoin, macrocrystals 25 mg / nitrofurantoin, monohydrate 75 mg oral capsule (2 sources)Nitrofuran AntibacterialStart: 86-18-8543awzi 1 capsule by mouth every twelve hoursMacrobid 100 MG 1 capsule with food Orally every 12 hrs for 5 days May, Activeondansetron 4 mg disintegrating oral tablet (20 sources)Serotonin-3 Receptor AntagonistStart: 83-85-4402urqa 1 tablet by mouth every twelve hours as neededOndansetron 4 mg tablet,disintegrating Active 4 MG PO Every 12 hours as needed April 30, 2025 12:00am Complies with drug therapyStart: 70-93-5792lzfb 1 tablet by mouth every twelve hours as needed for nauseaondansetron orally disintegrating (ZOFRAN ODT) 4 mg disintegrating tablet Indications: Crohn's disease of both small and large intestine with abscess (HCC) , Nausea Take 1 tablet by mouth every 12 hours as needed for nausea/vomiting. 60 tablet 2 03/16/2025 ActiveStart: 07-19-2024 End: mg, IntraVENous, ONCE, 1 dose, On Wed07/19/24 at 1915Start: 35-67-2717hrnj 1 tablet by mouth three times daily as needed for nausea ondansetron (ZOFRAN-ODT) 4 MG disintegrating tablet Take 1 tablet by mouth 3 times daily as needed for Nausea or Vomiting 21 tablet 05/24/2024 ActiveStart: 75-28-2012rkja 1 tablet by mouth every twelve hours as needed for nausea ondansetron (ZOFRAN) 4 MG tablet Take 1 tablet by mouth every 12 hours as needed for Nausea or Vomiting 10 tablet 05/09/2024 ActiveStart: 05-01-2024 End: mg, IntraVENous, ONCE, 1 dose, On Wed05/01/24 at 1445Start: 65-24-1665mrpv 1 tablet by mouth three times daily as needed for nausea ondansetron (ZOFRAN-ODT) 4 MG disintegrating tablet Take 1 tablet by mouth 3 times daily as needed for Nausea or Vomiting 21 tablet 0 11/22/2023 ActiveStart: 11-22-2023 End: 62-21-1873wjawgxuppga (ZOFRAN) injection 4 mgStart: 11-22-2023 End: 03-12-2312pknvhagmqpj (ZOFRAN) 4 MG/2ML injectionStart: 06-18-2020 End: 24-57-0382ucni 1 tablet by mouth every eight hours as neededondansetron orally disintegrating (ZOFRAN ODT) 4 mg disintegrating tablet Take 1 tablet by mouth every 8 hours as needed for nausea/vomiting (first line). 30 tablet 09/28/2024 ActiveStart: 06-04-2020 End: 17-87-4948roxl 1 tablet by mouth every eight hours as neededondansetron (ZOFRAN) 8 MG tablet Take 1 (one) tablet (8 mg total) by mouth every 8 (eight) hours asneeded for nausea . 20 tablet 0 06/04/2020 ActiveStart: 05-30-2020 End: 06-18-3856vfqp 4 mg intravenous route every six hours as neededondansetron (ZOFRAN) injection 4 mgtake 1 tablet by mouth every eight hours as needed for nausea and vomitingondansetron (ZOFRAN) 4 mg tablet Take 1 tablet (4 mg total) by mouth every 8 (eight) hours as needed for nausea or vomiting. Active ondansetron (ZOFRAN-ODT) disintegrating tablet 4 mg (3 sources)Start: 46-07-2973ghmkwsscama (ZOFRAN-ODT) disintegrating tablet 4 mg Start: 86-20-8938fvjxjwejett (ZOFRAN-ODT) disintegrating tablet 4 mgStart: 04-30-2018 End: 12-79-0983wgbq 1 tablet by mouth every six hours as neededondansetron (ZOFRAN-ODT) disintegrating tablet 4 mgopium tincture 100 mg/ml oral solution (11 sources)Start: 10-25-2024 End: 52-60-3331qmdn 0.3 mL by mouth every four hours as neededopium tincture 10 mg/mL (morphine) Indications: High output ileostomy (HCC) Take 0.3 mL by mouth every 4 hours as needed for up to 30 days as directed. 54 mL 11/10/2024 7:37 PM EDT 11/07/2024 12/10/2024 Activepantoprazole 40 mg delayed release oral tablet (20 sources)Proton Pump InhibitorStart: 02-16-2023 End: 73-13-3806nwcn 1 tablet by mouth once daily before breakfastpantoprazole (PROTONIX) 40 MG tablet Take 1 tablet by mouth every morning (before breakfast) 30 tablet 3 05/10/2024 ActiveStart: 05-31-2020 End: 42-13-1510ehxxnfxzwiuy (PROTONIX) injection 40 mgpantoprazole (PROTONIX) 40 mg in sodium chloride (PF) 0.9 % 10 mL injection (2 sources)Start: mg, IntraVENous, DAILY, First dose on Wilma 07/20/24 at 0900, Reconstitute each 40 mg vial with 10 mL of 0.9% sodium chloride and administer each 40 mg vial over at least 2 minutes.Start: 05-01-2024 End: 63-29-968120 mg, IntraVENous, DAILY, First dose on 05/01/24 at 2100, Reconstitute each 40 mg vial with 10mL of 0.9% sodium chloride and administer each 40 mg vial over at least 2 minutes.PN-Adult 2-in-1 Central Line (Standard) (7 sources)Start: 07-29-2024 End: 37-47-2691VqmiwYOUied, at 55 mL/hr, Administer over 24 Hours, CONTINUOUS TPN, Starting on 07/29/24 at 1800, For 24 hoursStart: 07-28-2024 End: 12-73-9115KybxjXYIubr, at 55 mL/hr, Administer over 24 Hours, CONTINUOUS TPN, Starting on Wed07/28/24 at 1800, For 24 hoursStart: 07-27-2024 End: 41-54-1883EkjnyCUHspw, at 51.3 mL/hr, Administer over 24 Hours, CONTINUOUS TPN, Starting on Wilma 07/27/24 at 1800, For 24 hoursStart: 07-26-2024 End: 59-62-5882TczfrOOIodi, at 51.3 mL/hr, Administer over 24 Hours, CONTINUOUS TPN, Starting on Wed07/26/24 at 1800, For 24 hoursStart: 07-25-2024 End: 57-62-5646KmcvoZGNoug, at 50.8 mL/hr, Administer over 24 Hours, CONTINUOUS TPN, Starting on Wed07/25/24 at 1800, For 24 hoursStart: 07-24-2024 End: 89-02-6815XhmddWQQkpy, at 50 mL/hr, Administer over 24 Hours, CONTINUOUS TPN, Starting on Wed07/24/24 at 1800, For 24 hoursStart: 07-23-2024 End: 70-97-6643ZxerjUDCane, at 41.7 mL/hr, Administer over 24 Hours, CONTINUOUS TPN, Starting on Wed07/23/24 at 1800, For 24 hourspolyethylene glycol 3350 01528 mg powder for oral solution (5 sources)Osmotic LaxativeStart: 92-99-4031Qfatd: 04-03-2024 End: 93-73-3766ortbhmgoytqr glycol (MIRALAX) 17 GM/SCOOP powder Take per bowel prep instructions 238 g 04/03/2024 05/09/2024 Discontinued (Stop Taking at Discharge)Start: 03-31-2024 End: 54-58-4234sheihrehyogo glycol (GLYCOLAX) 17 GM/SCOOP powder Dispense 4 Dulcolax tablets with this prescription. Use as directed by following your patient instructions given by your physician. 255 g 03/31/2024 06/05/2024 Discontinued (Therapy completed)Potassium Chloride (3 sources)Start: 07-19-2024 End: 24-04-3434bnoelxxmx chloride (KLOR-CON M) extended release tablet 40 mEq Start: 73-09-8895rtnpuwble chloride (KLOR-CON M) extended release tablet 40 mEq Start: 06-01-2020 End: 64-06-9652zibqgpcbi chloride SA (K-DUR,KLOR-CON) CR tablet 40 mEqpredniSONE 20 mg oral tablet (20 sources)Start: 05-09-2024 End: 45-59-6776kgov 1 tablet by mouth twice dailypredniSONE (DELTASONE) 20 MG tablet Take 1 tablet by mouth 2 times daily for 5 days 10 tablet 1 05/09/2024 05/14/2024 ActiveStart: 29-13-9704asum 40 mg by mouth once dailyPrednisone Active 40 MG PO Daily February 16, 2023 12:00amStart: 12-23-2022 End: 46-93-3993xexx 2 tablets by mouth once dailyPrednisone 20 mg tablet Discontinued 40 MG PO Daily February 16, 2023 12:00am April 30, 2025 4:04pm Start: 77-10-8559cujq 1 tablet by mouth every twenty-four hourspredniSONE 20 MG 1 tablet Orally Once a day for 30 days Jan, ActiveStart: 12-23-2022 predniSONE 5 MG 7 tablets daily for 7 days, then 6 tablets daily for 7 days, then 5 tablets daily for 7 days, then 4 tablets daily for 7 days, then 3 tablets daily for 7 days, then 2 tablets daily for 7 days, then 1 tablet daily for 7 days Orally Once a day for 49 days Dec, Not-TakingStart: 12-23-2022 Start: 06-18-2020 End: 79-77-9845nqfcyhYEXZ (DELTASONE) 10 MG tablet Indications: Crohn's disease [...] THEN 1.5 (one and a half) tablets (15mg total) daily for 7 days, THEN 1 (one) tablet (10 mg total) daily for 7 days, THEN 0.5 (one-half)tablet (5 mg total) daily for 7 days. 98 tablet 0 06/18/2020 08/06/2020 ActiveStart: 06-04-2020 End: 91-01-6079filr 2 tablets by mouth once dailypredniSONE (DELTASONE) 20 MG tablet Take 2 (two) tablets (40 mg total) by mouth daily Please call Dr. Cardenas to discuss tapering and stopping prednsone. for 14 days . 28 tablet 0 06/04/2020 06/18/2020Discontinued (Dose adjustment)Start: 03-01-2012 End: 70-18-1813dumxuhMDAU (DELTASONE) 10 MG tabletStart: 64-05-0227wbrarvCOJF (DELTASONE) 10 MG tablettake 3 tablets by mouth every twenty-four hours predniSONE 20 MG 3 tablets Orally once a day for 28 days Activepsyllium 400 mg oral capsule (20 sources)Start: 10-25-2024 End: 46-59-4142xdfgfhau husk (METAMUCIL) 0.4 gram cap Take 2 capsules by mouth three times a day. 90 capsule 10/25/2024 11/24/2024 Activetake 1 dose by mouth once dailypsyllium (METAMUCIL FIBER SINGLES) 3.4 gram packet Take 1 packet by mouth once daily. SuspendedRINVOQ 30 mg ER tablet (2 sources)Start: 40-49-2651MMJDQA 30 mg ER tablet 08/16/2023 ActiveStart: 93-46-8823pdxs 1 tablet by mouth once dailyRINVOQ 30 mg ER tablet TAKE 1 TABLET BY MOUTH EVERY DAY 0 08/16/2023 ActiveRisankizumab-Rzaa (1 source)Start: 73-15-5805Kflpqfownzdc-Rzaa (Skyrizi) 360 mg/2.4 mL (150 mg/mL) wearable injector Active 150 MG SUBCUT EVERY 8 WEEKS April 30, 2025 12:00am Complies with drug therapyrisankizumab-rzaa (SKYRIZI) 360 mg/2.4 mL (150 mg/mL) wearable injector (13 sources)Start: 94-19-7928dtvarddxcndl-rzaa (SKYRIZI) 360 mg/2.4 mL (150 mg/mL) wearable injector Indications: Crohn's disease of small and large intestines with complication (HCC) Inject 360 mg subcutaneously every 8 weeks. S tart 4 weeks after the last infusion dose. 2.4 mL 2 03/02/2025 Activesimethicone 125 mg chewable tablet (1 source)Start: 93-80-8142owjx 1 tablet by mouth every six hours as needed Simethicone (Gas Relief Extra Strength) 125 mg tablet,chewable Active 125 MG PO Every 6 hours as needed April 30, 2025 12:00am Complies with drug iydgidu11 ml sodium chloride 4.5 mg/ml injection (20 sources)Start: 33-04-4869Ejwdhl Chloride 0.45 % 0.45 % parenteral solution Active IV April 30, 2025 12:00am Complies with drug therapyStart: 07-29-2024 End: mL (9.54 mL/kg), IntraVENous, at 247.9 mL/hr, Administer over 121 Minutes, ONCE, On Wed07/29/24at 0230, For 1 doseStart: 07-28-2024 End: 37-17-4828VulanUSKtnc, at 100 mL/hr, CONTINUOUS, Starting on Wed07/28/24 at 1315Start: 07-25-2024 End: mL (10.4 mL/kg), IntraVENous, at 247.9 mL/hr, Administer over 121 Minutes, ONCE, On Wed07/25/24at 1015, For 1 doseStart: 51-66-3974wspe 20 mL intravenously every hourIntraVENous, at 5-250 mL/hr, PRN, if patient receiving [...] mL/hr or less into rate field of order.Start: -40 mL, IntraVENous, EVERY 12 HOURS SCHEDULED (2 times per day), First dose on Wed07/19/24 at 2100, Until Discontinued, For Line Patency: Peripheral IV = 5 mL; Midline or Central Line = 10 mL/lumen.If following IV push medication, administer flush at same rate as the IV push. Flush volume is deter mined by type of infusion therapy being given. For non-viscous solutions use: Peripheral IV = 5 mL Midline or Central Line = 10 mL/lumen For viscous solutions (i.e. blood components, parenteral nutrition, contrast media, or after obtaining blood sample) use: Peripheral IV = 10 mL Midline or CentralLine = 20 mL/lumenStart: -40 mL, IntraVENous, PRN, Starting on Wed07/19/24 at 2047, Until [...] For viscous solutions (i.e. blood components, parenteral nutrition,contrast media, or after obtaining blood sample) use: Peripheral IV = 10 mL Midline or Central Line= 20 mL/lumenStart: 07-19-2024 End: ,000 mL (18.5 mL/kg), IntraVENous, at 1,000 mL/hr, Administer over 1 Hours, ONCE, On Wed07/19/24 at 1715, For 1 doseStart: 06-05-2024 IntraVENous, at 125 mL/hr, CONTINUOUS, Starting on Wed06/05/24 at 0900, Pre-op (day of surgery)Start: 98-81-3430txdx 20 mL intravenously every hourIntraVENous, at 5-250 mL/hr, PRN, if patient receiving [...] less into rate field of order., Pre-op (dayof surgery)Start: -40 mL, IntraVENous, EVERY 12 HOURS SCHEDULED (2 times per day), First dose on Wed06/05/24 at 0900, Until Discontinued, For Line Patency: Peripheral IV = 5 mL; Midline or Central Line = 10 mL/lumen.If following IV push medication, administer flush at same rate as the IV push. Flush volume is determined by type of infusion therapy being given. For non-viscous solutions use: Peripheral IV = 5 mL Midline or Central Line = 10 mL/lumen For viscous solutions (i.e. blood components, parenteral nutrition, contrast media, or after obtaining blood sample) use: Peripheral IV = 10 mL Midline or CentralLine = 20 mL/lumen, Pre-op (day of surgery)Start: -40 mL, IntraVENous, PRN, Starting on Wed06/05/24 at 0836, Until Discontinued, Line Care, After every IV line use, For Line Patency: Peripheral IV = 5 mL; Midline or Central Line = 10 mL/lumen. If fo llowing IV push medication, administer flush at same rate as the IV push. Flush volume is determined by type of infusion therapy being given. For non-viscous solutions use: Peripheral IV = 5 mL Midline or Central Line = 10 mL/lumen For viscous solutions (i.e. blood components, parenteral nutrition,contrast media, or after obtaining blood sample) use: Peripheral IV = 10 mL Midline or Central Line= 20 mL/lumen, Pre-op (day of surgery)Start: 05-01-2024 End: 60-07-4275IrxjcPYYwjw, at 50 mL/hr, CONTINUOUS, Starting on Wed05/01/24 at 2100Start: 47-32-8705bhmq 20 mL intravenously every hourIntraVENous, at 5-250 mL/hr, PRN, if patient receiving piggyback infusions and maintenance fluids are not ordered OR KVO fluids to protect IV site / prevent frequent line interruptions/ long duration, Starting on Wed05/01/24 at 2050, For piggyback infusion, administer at same rate as piggyback fora total of 25 mL. Enter 25 mL into dose field and piggyback rate into rate field of order. If piggyback is infusing at a rate less than 100 mL/hr, enter 25 mL into dose field and 100 mL/hr into rate field of order. For KVO fluids, enter rate of 20 mL/hr or less into rate field of order.Start: -40 mL, IntraVENous, EVERY 12 HOURS SCHEDULED (2 [...] non-viscous solutions use: Peripheral IV = 5 mLMidline or Central Line = 10 mL/lumen For viscous solutions (i.e. blood components, parenteral nutrition, contrast media, or after obtaining blood sample) use: Peripheral IV = 10 mL Midline or Central Line = 20 mL/lumenStart: 88-57-27291-40 mL, IntraVENous, PRN, Starting on Wed05/01/24 at 2050, Until Discontinued, Line Care, After every IV [...] mL Midline or Central Line = 20 mL/lumenStart: 05-01-2024 End: ,000 mL, IntraVENous, at 983.6 mL/hr, Administer over 61 Minutes, ONCE, On Wed05/01/24 at 1445, For 1 doseStart: 05-30-2020 End: 94-83-7894qregmo chloride 0.9 % (NS) infusion - ADS Override Oqnu682 ml soybean oil 200 mg/ml injection (1 source)Start: 91-53-8627733 mL, IntraVENous, at 21 mL/hr, Administer over 12 Hours, DAILY, First dose on Wed07/23/24 at 1800, Use 1.2 micro filter. USE CAUTION IF PATIENT USING PROPOFOL.Sucralfate (Carafate) 100 mg/mL suspension (2 sources)Start: 28-43-0960zvgj 1 mL by mouth four times daily as needed Sucralfate (Carafate) 100 mg/mL suspension Active 10 ML PO Four times daily as needed December 20, 2023 11:00pmStart: 52-19-0613ajdd 1 mL by mouth four times dailySucralfate (Carafate) 100 mg/mL suspension Active 10 ML PO Four times daily December 21, 2023 12:00amTPN (1 source)Start: 60-65-0810HDX Active IV Daily at bedtime April 30, 2025 12:00am via Reece catheter Complies with drug therapyvitamin b12 0.5 mg oral tablet (1 source)Vitamin B60Hufkh: 05-08-2024 End: ,000 mcg, Oral, DAILY, 7 doses, First dose on 05/08/24 at 1300, Last dose on 05/14/24 at 0900 Completed/Discontinued Medications MedicationDrug Class(es)DatesSig (Normalized)Sig (Original)acetaminophen 325 mg / HYDROcodone bitartrate 5 mg oral tablet (12 sources)Opioid AgonistStart: 07-24-2022 End: 48-10-6480rvkw 1 tablet by mouth three times daily as needed for pain Hydrocodone-Acetaminophen 5-325 mg tablet Discontinued 1 TAB PO Three times daily as needed for pain 9 3 0 July 24, 2022 February 16, 2023 6:51am Fracture of right wristStart: 04-30-2018 End: 06-50-6259tovr 1 tablet by mouth every six hours as neededacetaminophen 325 mg / oxyCODONE hydrochloride 5 mg oral tablet (3 sources)Opioid AgonistStart: 07-27-2024 End: tablet, Oral, EVERY 4 HOURS PRN, Starting on Wed07/28/24 at 1722, Until Discontinued, Pain Severe(7-10), Maximum dose of acetaminophen is 4000 mg from all sources in 24 hours.Start: 05-09-2024 End: 52-78-3136fwlHRZBKM-acetaminophen (PERCOCET) 5-325 MG per tablet Indications: Crohn's disease of colon with abscess (HCC) , Intra-abdominal abscess (HCC) , Crohn's colitis, other complication (HCC) Take 1 tablet by mouth every 6 hours as needed for Pain for up to 5 days. Intended supply: 3 days. Take lowest dose possible to manage pain Max Daily Amount: 4 tablets 12 tablet 05/09/2024 05/14/2024 Activealbuterol 0.833 mg/ml / ipratropium bromide 0.167 mg/ml inhalant solution (2 sources)Anticholinergic, beta2-Adrenergic AgonistStart: 09-10-2018 End: 64-98-3023fqnuopcstff-albuterol (DUO-NEB) 0.5-2.5 mg/3 ml nebulizer solution 3 mLStart: 09-10-2018 End: 55-85-6657sdwssybuzqp-albuterol (DUO-NEB) 0.5-2.5 mg/3 ml nebulizer solution 3 mLalbuterol 90 mcg/actuation inhaler (3 sources)Start: 09-10-2018 End: 47-48-7650lspo 2 puff(s) by inhalation every six hours as needed for wheezingalbuterol 90 mcg/actuation inhaler Indications: Bronchitis , Cough Inhale 2 (two) puffs every 6 (six) hours as needed for wheezing . 6.7 g 0 09/10/2018 06/19/2020 DiscontinuedStart: 14-97-2700fqha 2 puff(s) by inhalation every six hours as needed for wheezingalbuterol 90 mcg/actuation inhaler Indications: Bronchitis , Cough Inhale 2 (two) puffs every 6 (six) hours as needed for wheezing . 6.7 g 0 09/10/2018 Activeamoxicillin 875 mg / clavulanate 125 mg oral tablet (3 sources)Penicillin-class AntibacterialStart: 05-09-2024 End: 20-08-3685thct 1 tablet by mouth twice dailyamoxicillin-clavulanate (AUGMENTIN) 875-125 MG per tablet Take 1 tablet by mouth 2 times daily for 14 days 28 tablet 05/09/2024 05/23/2024 ExpiredStart: 04-22-2024 End: 67-43-2416fwvo 1 tablet by mouth once in the morningamoxicillin-pot clavulanate (AUGMENTIN) 875-125 mg per tablet Indications: Upper respiratory tract infection, unspecified type Take 1 tablet by mouth in the morning and 1 tablet before bedtime. Do all this for 7 days. 14 tablet 04/22/2024 04/29/2024 Activeatropine sulfate 0.025 mg / diphenoxylate hydrochloride 2.5 mg oral tablet (20 sources)Anticholinergic, Cholinergic Muscarinic Antagonist, Antidiarrheal Start: 08-30-2024 End: 38-82-9199iofz 2 tablets by mouth once at bedtimediphenoxylate-atropine (LOMOTIL) 2.5-0.025 mg per tablet Indications: High output ileostomy (HCC) Take 2 tablets by mouth before meals and at bedtime for 90 days. 240 tablet 2 10/25/2024 Suspendedbarium sulfate (READI-CAT 2) 2 % suspension 450 mL (1 source)Start: 07-19-2024 End: 21-02-9960llrq 1 dose by mouth xaeu281 mL, Oral, IMG ONCE PRN, 1 dose, Starting on Wed07/19/24 at 1725, Until Wed07/19/24 at 1727, Otherbenzocaine 140 mg/ml / butamben 20 mg/ml / tetracaine 20 mg/ml mucosal spray (1 source)Dominga Local Anesthetic, Standardized Chemical AllergenStart: 07-21-2024 End: 41-75-8334ektuo 1 dose topically once1 spray, Topical, ONCE, 1 dose, On Wed07/21/24 at 2045, Apply to throat and nares for ngt placement.calcium chloride 0.0014 meq/ml / potassium chloride 0.004 meq/ml / sodium chloride 0.103 meq/ml / sodium lactate 0.028 meq/ml injectable solution (2 sources)Start: 07-19-2024 End: 82-92-3955TcejkDXVxoj, at 125 mL/hr, CONTINUOUS, Starting on Wed07/19/24 at 2115Start: 11-22-2023 End: 45-53-4352cyloqwaa ringers bolus 1,000 mLcalcium polycarbophil 625 mg oral tablet (20 sources)Start: 08-30-2024 End: 64-35-6488wkqk 1 tablet by mouth twice daily in the eveningcalcium polycarbophil (FIBERCON) 625 mg tablet Take 1 tablet by mouth two times a day. 60 tablet 2 08/30/2024 3:08 PM EST 08/30/2024 11/03/2024 Discontinued cholestyramine resin 4000 mg powder for oral suspension (20 sources)Bile Acid SequestrantStart: 09-18-2024 End: 07-93-2804agrt 1 dose by mouth twice daily at mealtimecholestyramine (QUESTRAN) 4 gram packet Indications: High output ileostomy (HCC) Take 1 Packet by mouth two times a day with meals. 60 Packet 2 09/18/2024 12/29/2024 Yowyprrmtill584 ml ciprofloxacin 2 mg/ml injection (3 sources)Quinolone AntimicrobialStart: 05-31-2020 End: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 1.10-3.70[facility] HospitalComment on above:Performed By: #### MG, JOSELIN, CDP, CP #### [address] [place], [place] [address] Curtain Stitcher: Dereck Perrymphocytes/100 WBC (Bld)25 %Yphwqf12-55Uavlm Tiffin HospitalComment on above:Performed By: #### MG, JOSELIN, CDP, CP #### [address] [place], [facility]83 Curtain Stitcher: SHARYN Perry (RBC) [Entitic mass]29.1 ddBkyywv28.2-33.5 [facility] HospitalComment on above:Performed By: #### MG, JOSELIN, CDP, CP #### [address] [place], [facility]83 Curtain Stitcher: SHARYN PerryC (RBC) [Mass/Vol]32.5 g/vOXinbys74.4-34.8[facility] HospitalComment on above:Performed By: #### MG, JOSELIN, CDP, CP #### [address] [place], [place] [id number] Curtain Stitcher: JAN PerryCV (RBC) [Entitic vol]89.7 nEYaaqdi09.6-102.9 [facility] HospitalComment on above:Performed By: #### MG, JOSELIN, CDP, CP #### [address] [place], [place] [address] Curtain Stitcher: JAN Perryonocytes (Bld) [#/Vol]0.37 10*3/uLNormal0.10-1.20 [facility] Medical CenterComment on above:Performed By: #### MG, JOSELIN, CDP, CP #### [address] [place], [place] [address] Curtain Stitcher: JAN Perryonocytes/100 WBC (Bld)7 %Normal3-12[facility] Medical CenterComment on above:Performed By: #### MG, JOSELIN, CDP, CP #### [address] [place], [place] [address] Curtain Stitcher: Fer Perryutrophil (Seg)64 %Lhzcwm40-86TztnxUniversity Hospitals Ahuja Medical CenterComment on above:Performed By: #### MG, JOSELIN, CDP, CP #### [address] [place], [place] [address] Curtain Stitcher: Fartun Hurley MDNRBC Automated0.0 per 100 WBCNormal0.0[facility] Medical CenterComup health system on above:Performed By: #### MG, JOSELIN, CDP, CP #### [address] [place], [place] [address] Curtain Stitcher: RACHID Perrylatelet mean volume (Bld) [Entitic vol]11.3 fL Normal8.1-13.5[facility] Medical CenterComup health system on above:Performed By: #### MG, JOSELIN, CDP, CP #### [address] [place], [place] 118[address]83 Curtain Stitcher: RACHID Perrylatelets (Bld) [#/Vol]184 10*3/hXNwplbg386-781 [facility] Medical CenterComment on above:Performed By: #### MG, JOSELIN, CDP, CP #### [address] [place] [address] Curtain Stitcher: FADY Perry ([facility]) [#/Vol]3.88 10*6/uLLow3.95-5.11[facility] Medical CenterComment on above:Performed By: #### MG, JOSELIN, CDP, CP #### [address] [place] [address] Curtain Stitcher: GIANNA Perry ([facility]) [#/Vol]5.1 10*3/uLNormal3.5-11.3MKettering HealthComment on above:Performed By: #### MG, JOSELIN, CDP, CP #### [address] [place] [address] Curtain Stitcher: ANGIE Perryomp Metabolic Profon 02-51-6737Qjugqmm [Mass/Vol] 3.9 g/dLNormal3.5-5.2MMercy Health [facility] Hospital HospitalComment on above:Performed By: #### MG, JOSELIN, CDP, CP #### [address] [place] [address] Curtain Stitcher: Fartun Hurley MDAlbumin/Glob Ratio1.2Kzzyeu7.0-2.5[facility] Medical CenterComment on above:Performed By: #### MG, JOSELIN, CDP, CP #### [address] [place] [address] Curtain Stitcher: Wesley Perryline Phos71 U/ZSjssls87-547IorkjUniversity Hospitals Ahuja Medical CenterComment on above:Performed By: #### MG, JOSELIN, CDP, CP #### [address] [place], [place] 274[address]83 Curtain Stitcher: Fartun Hurley MDALT [Catalytic activity/Vol]22 U/JOdiwjs57-46AxicdUniversity Hospitals Ahuja Medical CenterComment on above:Performed By: #### MG, JOSELIN, CDP, CP #### [address] [place], [place] 522[address]83 Curtain Stitcher: Fartun Hurley MDAnion gap [Moles/Vol]7 mmol/LLow9-16MerSelect Medical Specialty Hospital - Cincinnati North HospitalComment on above:Performed By: #### MG, JOSELIN, CDP, CP #### [address] [place] [address] Curtain Stitcher: Fartun Hurley MDAST [Catalytic activity/Vol]18 U/ACovkjf33-27RoowmUniversity Hospitals Ahuja Medical CenterComment on above:Performed By: #### MG, JOSELIN, CDP, CP #### [address] [place], [place] 0697683 Curtain Stitcher: Fartun Hurley MDBilirubin [Mass/Vol]0.3 mg/dLNormal0.00-1.20MerSilver Hill HospitalComment on above:Performed By: #### MG, JOSELIN, CDP, CP #### [address] [place], [place] 385[address]83 Curtain Stitcher: Fartun Hurley MDBUN/CRE Zasja03Aenb1-52TwmezUniversity Hospitals Ahuja Medical Center Comment on above:Performed By: #### MG, JOSELIN, CDP, CP #### [address] [place] [address] Curtain Stitcher: Fartun Hurley MDCalcium [Mass/Vol]8.6 mg/dLNormal8.6-10.4[facility] Medical CenterComment on above:Performed By: #### MG, JOSELIN, CDP, CP #### [address] [place], [place] 37[address]83 Curtain Stitcher: ANGIE Perryhloride [Moles/Vol]104 mmol/WQdepgo80-039Irzyo Tiffin HospitalComment on above:Performed By: #### MG, JOSELIN, CDP, CP #### [address] [place] [address] Curtain Stitcher: ANGIE PerryO2 [Moles/Vol]27 mmol/BJuhlzh78-99GoxtjUniversity Hospitals Ahuja Medical CenterComment on above:Performed By: #### MG, JOSELIN, CDP, CP #### [address] [place], [place] 7017183 Curtain Stitcher: ANGIE Perryreatinine [Mass/Vol]0.5 mg/dLNormal0.50-0.90[facility] Medical CenterComment on above:Performed By: #### MG, JOSELIN, CDP, CP #### [address] [place] [address] Curtain Stitcher: Fartun Hurley MDGFR/1.73 sq M.predicted among non-blacks MDRD (S/P/Bld) [Vol rate/Area]mL/min/{1.73_m2}Normal>60[facility] Medical CenterComment on above:Result Comment: These results are not intended for [...] or following therapy that affects renal tubular secretion.Performed By: #### MG, JOSELIN, CDP, CP #### [address] [place] [address] Curtain Stitcher: Fartun Hurley MDGlucose [Mass/Vol]113 mg/tNHjlf26-37ZuwxbKettering HealthComment on above:Performed By: #### MG, JOSELIN, CDP, CP #### [address] [place] [address] Curtain Stitcher: RACHID Perryotassium [Moles/Vol]4.4 mmol/LNormal3.7-5.3MercUniversity Hospitals Samaritan Medical Center HospitalComment on above:Performed By: #### MG, JOSELIN, CDP, CP #### [facility] [address] [place] [address] Curtain Stitcher: RACHID Perryrotein [Mass/Vol]6.7 g/dLNormal6.6-8.7[facility] Medical CenterComment on above:Performed By: #### MG, JOSELIN, CDP, CP #### [facility] [address] [place] [address] Curtain Stitcher: CASS Perryodium [Moles/Vol]138 mmol/QXluney668-705CujyhUniversity Hospitals Ahuja Medical CenterComment on above:Performed By: #### MG, JOSELIN, CDP, CP #### [address] [place] [address] Curtain Stitcher: Fartun Hurley MDUrea nitrogen [Mass/Vol]21 mg/dLHigh6-20[facility] Medical CenterComment on above:Performed By: #### MG, JOSELIN, CDP, CP #### [address] [place] [address] Curtain Stitcher: ANGIE Perryomprehensive Metabolic Panelon 96-70-6364Cvbbtfz [Mass/Vol]3.9 g/dL3.5 - 5.2 g/dLBon [facility] HospitalAlbumin/Globulin [Mass ratio]1.4 {ratio}1.0 - 2.5Bon [facility] HealthALP [Catalytic activity/Vol]71 U/L35 - 104 U/LBon [facility] HealthALT [Catalytic activity/Vol]22 U/L10 - 35 U/LBon [facility] HospitalAnion gap [Moles/Vol]7 mmol/LLow9 - 16 mmol/LBon [facility] HealthAST [Catalytic activity/Vol]18 U/L10 - 35 U/LBon [facility] HospitalBilirubin [Mass/Vol]0.3 mg/dL0.00 - 1.20 mg/dLBon [facility] HospitalCalcium [Mass/Vol]8.6 mg/dL8.6 - 10.4 mg/dLBon [facility] Chloride [Moles/Vol]104 mmol/L98 - 107 mmol/LBon [facility] HospitalCO2 [Moles/Vol]27 mmol/L20 - 31 mmol/LBon [facility] HospitalCreatinine [Mass/Vol] 0.5 mg/dL0.50 - 0.90 mg/dLBon [facility] HospitalEst, Glom Filt Rate- PINFBon [facility] North HospitalComment on above: These results are not intended for use in patients <18 years of age. eGFR results are calculated without a race factor using the 202 CKD-EPI equation. Careful clinical correlation is recommended, particularly when comparing to results calculated using previous equations. The CKD-EPI equation is less accurate in patients with extremes of muscle mass, extra-renal metabolism of creatine, excessive creatine ingestion, or following therapy that affects renal tubular secretion. Glucose [Mass/Vol]113 mg/oMRnis39 - 99 mg/dLBon [facility] Interpretation and review of laboratory resultsAbnormalBon [facility] Potassium [Moles/Vol]4.4 mmol/L3.7 - 5.3 mmol/LBon [facility] HospitalProtein [Mass/Vol]6.7 g/dL6.6 - 8.7 g/dLBon [facility] HospitalSodium [Moles/Vol]138 mmol/L136 - 145 mmol/LBon [facility] HospitalUrea nitrogen [Mass/Vol]21 mg/dL High6 - 20 mg/dLBon [facility] HospitalUrea nitrogen/Creatinine [Mass ratio]42 mg/mgHigh9 - 20Bon [facility] HospitalMagnesiumon 06-06-9276Vyhqsxywx [Mass/Vol]2.0 mg/dL1.6 - 2.6 mg/dLBon [facility] HospitalMagnesium [Mass/Vol] 2.0 mg/dLNormal1.6-2.6[facility] Central ConnecticutComment on above:Performed By: #### MG, JOSELIN, CDP, CP #### [facility] [address] [place] [address] Curtain Stitcher: Fartun Hurley MDNo Panel Informationon 14-70-6282Yac [facility] HospitalPhosphoruson 69-12-8631Lcjijyoyp [Mass/Vol]3.8 mg/dL2.5 - 4.5 mg/dLBon [facility] HospitalPhosphorus, Inorg.on 93-92-9104Axhrqbdhmj, Inorg.3.8 mg/dL Normal2.5-4.5[facility] Medical CenterComment on above:Performed By: #### MG, JOSELIN, CDP, CP #### [address] [place] [address] Curtain Stitcher: ANGIE PerryNCOon 58-07-1679OGHNHlyahu TextNormalCMercy Health Urbana HospitalCNPNon 86-58-7949GWEYCbgjtyCkfahvcxu Clinic ClevelandCNPNon 96-96-0204JLLWIvynptCbaaaqdacMercy Health St. Anne HospitalCNOVon 86-28-6361EKRYUnjbfw [facility] County HospitalCNPNon 49-41-2168BQTKDpiekuShvzonosqMercy Health St. [facility] Hospital CNPNon 61-86-3183HNNQTanfwmAwrfekrouMercy Health St. Anne HospitalComp Metabolic Profon 50-25-7473Azlzuzy [Mass/Vol]4.0 g/dLNormal3.5-5.2MercStamford HospitalComment on above:Performed By: #### LIPR #### [place] [address] [place] [address] Curtain Stitcher: Dioni Merlos MD #### JOSELIN, REJEC, MG, CP #### [address] [place] [address] Curtain Stitcher: Ulysses Perry Phos76 U/PPldbox84-039VikinUniversity Hospitals Ahuja Medical CenterComment on above:Performed By: #### LIPR #### [facility] [address] [place] [address] Curtain Stitcher: Dioni Merlos MD #### JOSELIN, REJEC, MG, CP #### [address] [place] [phone] Curtain Stitcher: Fartun Hurley MDALT [Catalytic activity/Vol]47 U/YEzdw08-11Dlbzb84 Williams StreetComment on above:Performed By: #### LIPR #### [address] [address] Curtain Stitcher: Dioni Merlos MD #### JOSELIN, REJEC, MG, CP #### [address] [place] [address] Curtain Stitcher: Fartun Hurley MDAST [Catalytic activity/Vol]26 U/PZntvva98-58SoabzUniversity Hospitals Ahuja Medical CenterComment on above:Performed By: #### LIPR #### [address] [address] Curtain Stitcher: Dioni Merlos MD #### JOSELIN, REJEC, MG, CP #### [address] [place] [address] Curtain Stitcher: Fartun Hurley MDBilirubin [Mass/Vol]0.3 mg/dLNormal0.00-1.20[facility] Medical CenterComment on above:Performed By: #### LIPR #### [address] [address] Curtain Stitcher: Dioni Merlos MD #### JOSELIN, REJEC, MG, CP #### [address] [place] [id number] Curtain Stitcher: Fartun Hurley MDAlbumin/Glob Ratio1.0Swnyti0.0-2.5[facility] Medical CenterComup health system on above:Performed By: #### LIPR #### [address] [address] Curtain Stitcher: Dioni Merlos MD #### JOSELIN, REJEC, MG, CP #### [address] [place] [address]83 Curtain Stitcher: Fartun Hurley MDAnion gap [Moles/Vol]13 mmol/LNormal9-16[facility] Medical CenterComment on above:Performed By: #### LIPR #### [address] [address] Curtain Stitcher: Dioni Merlos MD #### JOSELIN, REJEC, MG, CP #### [address] [place] [address] Curtain Stitcher: Fartun Hurley MDBUN/CRE Dmjhz96Luls6-50AjkjwUniversity Hospitals Ahuja Medical Center Comment on above:Performed By: #### LIPR #### [address] [address] Curtain Stitcher: Dioni Merlos MD #### JOSELIN, REJEC, MG, CP #### [address] [place] [address]83 Curtain Stitcher: ANGIE Perryalcium [Mass/Vol]8.4 mg/dLLow8.6-10.4[facility] Medical CenterComment on above:Performed By: #### LIPR #### [address] [address] Curtain Stitcher: Dioni Merlos MD #### JOSELIN, REJEC, MG, CP #### [address] [place] [address]83 Curtain Stitcher: ANGIE Perryhloride [Moles/Vol]102 mmol/XAfacyt55-463EvaojUniversity Hospitals Ahuja Medical CenterComment on above:Performed By: #### LIPR #### [address] [address] Curtain Stitcher: Dioni Merlos MD #### JOSELIN, REJEC, MG, CP #### [address] [place] [address] Curtain Stitcher: ANGIE PerryO2 [Moles/Vol]23 mmol/LMipaqh33-38IpqvnUniversity Hospitals Ahuja Medical CenterComment on above:Performed By: #### LIPR #### [address] [id number] Curtain Stitcher: Dioni Merlos MD #### JOSELIN, REJEC, MG, CP #### [address] [place] [address] Curtain Stitcher: ANGIE Perryreatinine [Mass/Vol]0.5 mg/dLNormal0.50-0.90[facility] Medical CenterComment on above:Performed By: #### LIPR #### [address] [id number] Curtain Stitcher: Dioni Merlos MD #### JOSELIN, REJEC, MG, CP #### [address] [place] [address] Curtain Stitcher: Fartun Hurley MDGFR/1.73 sq M.predicted among non-blacks MDRD (S/P/Bld) [Vol rate/Area]mL/min/{1.73_m2}Normal>60[facility] Medical CenterComment on above:Result Comment: These results are not intended for [...] or following therapy that affects renal tubular secretion.Performed By: #### LIPR #### [address] [address] Curtain Stitcher: Dioni Merlos MD #### JOSELIN, REJEC, MG, CP #### [address] [place] [address] Curtain Stitcher: Fratun Hurley MDGlucose [Mass/Vol]89 mg/kFSxxiyk82-22Nauhw Crawley HospitalComment on above:Performed By: #### LIPR #### [place] [address] Curtain Stitcher: Dioni Merlos MD #### JOSELIN, REJEC, MG, CP #### [address] [place] [address]83 Curtain Stitcher: RACHID Perryotassium [Moles/Vol]3.7 mmol/LNormal3.7-5.3Mmercy health fairfield hospitaly Crawley HospitalComment on above:Performed By: #### LIPR #### [place] [address] Curtain Stitcher: Dioni Merlos MD #### JOSELIN, REJEC, MG, CP #### [address] [place] [address] Curtain Stitcher: RACHID Perryrotein [Mass/Vol]6.8 g/dLNormal6.6-8.7[facility]ja Medical CenterComment on above:Performed By: #### LIPR #### [place] [address] Curtain Stitcher: Dioni Merlos MD #### JOSELIN, REJEC, MG, CP #### [address] [place] [address] Curtain Stitcher: Fartun Hurley MDSodium [Moles/Vol]138 mmol/UQfmzds456-742MuvskUniversity Hospitals Ahuja Medical CenterComment on above:Performed By: #### LIPR #### [place] [address] Curtain Stitcher: Dioni Merlos MD #### JOSLEIN, REJEC, MG, CP #### [address] [place] [phone] Curtain Stitcher: Fartun Hurley MDUrea nitrogen [Mass/Vol]18 mg/dLNormal6-20[facility] Medical CenterComment on above:Performed By: #### LIPR #### [address] [address] Curtain Stitcher: Dioni Merlos MD #### JOSELIN, REJEC, MG, CP #### [address] [place] [address] Curtain Stitcher: Fartun Hurley MDLipid Profileon 88-02-8575Vyanqlgupsx [Mass/Vol] 133 mg/dLNormal0-199[facility]ja Medical CenterComment on above:Result Comment: Cholesterol Guidelines: <200 Desirable 200-240 Borderline >240 UndesirablePerformed By: #### LIPR #### [address] [address] Curtain Stitcher: Dioni Merlos MD #### JOSELIN, REJEC, MG, CP #### [address] [place] [phone] Curtain Stitcher: ANGIE Perryholesterol in HDL [Mass/Vol]54 mg/dLNormal>40 [facility] on above:Result Comment: HDL Guidelines: <40 Undesirable 40-59 Borderline >59 DesirablePerformed By: #### LIPR #### [address] [address] Curtain Stitcher: Dioni Merlos MD #### JOSELIN, REJEC, MG, CP #### [address] [place] [address] Curtain Stitcher: ANGIE Perryholesterol in LDL [Mass/Vol]66 mg/dLNormal0-100 [facility] on above:Result Comment: LDL Guidelines: <100 Desirable 100-129 Near to/above Desirable 130-159 Borderline >159 Undesirable Direct (measured) LDL and calculated LDL are not interchangeable tests.Performed By: #### LIPR #### [address] [address] Curtain Stitcher: Dioni Merlos MD #### JOSELIN, REJEC, MG, CP #### [address] [place], [place] 313[address] Curtain Stitcher: ANGIE Perryholesterol in VLDL [Mass/Vol]13 mg/dLNormal1-30 [facility] Medical CenterComment on above:Performed By: #### LIPR #### [address] [address] Curtain Stitcher: Dioni Merlos MD #### JOSELIN, REJEC, MG, CP #### [address] [place] [address] Curtain Stitcher: ANGIE Perryholestdarrell.total/Cholesterol in HDL [Mass ratio] 2.5 {ratio}Normal<5.0[facility] on above:Performed By: #### LIPR #### [address] [address] Curtain Stitcher: Dioni Merlos MD #### JOSELIN, REJEC, MG, CP #### [address] [place] [address] Curtain Stitcher: Fartun Hurley MDTriglyceride [Mass/Vol]66 mg/dLNormal<150[facility] on above:Result Comment: Triglyceride Guidelines: <150 Desirable 150-199 Borderline 200-499 High >499 Very high Based on AHA Guidelines for fasting triglyceride, April 2012.Performed By: #### LIPR #### [address] [address] Curtain Stitcher: Dioni Merlos MD #### JOSELIN, REJEC, MG, CP #### [address] [place] [address] Curtain Stitcher: Fartun Hurley MDMagnesiumon 56-41-3588Izfjoghda [Mass/Vol]2.0 mg/dLNormal1.6-2.6[facility] Central ConnecticutComment on above:Performed By: #### LIPR #### [address] [address] Curtain Stitcher: Dioni Merlos MD #### JOSELIN, REJEC, MG, CP #### [address] [place], [place] [address] Curtain Stitcher: [place] Perry Inorg.on 45-48-7606Kxzhyrqdqe, Inorg. 3.8 mg/dLNormal2.5-4.5[facility]ja Medical CenterComment on above:Performed By: #### LIPR #### [address] [address] Curtain Stitcher: Dioni Merlos MD #### JOSELIN, REJEC, MG, CP #### [address] [place] [address] Curtain Stitcher: Shy Perryimeandria Rejectionon 16-05-1491Dytivj for rejectionUnable to perform testing: Specimen clotted.[facility] Comment on above:Performed By: #### LIPR #### [address] [address] Curtain Stitcher: Dioni Merlos MD #### JOSELIN, REJEC, MG, CP #### [address] [place] [address] Curtain Stitcher: Veronica Perry of sample.BLOODNoalUniversity Hospitals Ahuja Medical Center Comment on above:Performed By: #### LIPR #### [address] [address] Curtain Stitcher: Dioni Merlos MD #### JOSELIN, REJEC, MG, CP #### [address] [place] [address] Curtain Stitcher: Fartun Hurley MDTest orderedCDPNMarietta Memorial Hospitalment on above:Performed By: #### LIPR #### [facility] [address] [place] [address] Curtain Stitcher: Dioni Merlos MD #### JOSELIN, REJEC, MG, CP #### [facility] [address] [place] [address] Curtain Stitcher: Fartun Hurley MDCNPNon 80-06-2564WNIWQwkxzcUjmpgwcqt Clinic ClevelandCNPNon 76-52-2126MESJZsrrkfDqubfmvic Clinic ClevelandXR ABDOMEN 3V KUB W/OBLIQUESon 53-56-0792OY ABDOMEN 3V KUB W/OBLIQUESNormalCMercy Health Urbana HospitalCalprotectin (Stl) [Mass/Mass]on 37-95-2049JWGTLPZVZPEK, FECAL PIFRABRNLJBJ08.6 ug/gHigh<50[facility] on above:Order Comment: Specimen Type: STOOL SPECIMENOrdering Facility: [facility] Address:[address] [place], [place] [address]Performed By: #### [id number]- 3 ####[facility] LABCLIA [id number] [address] [facility] W Auto Differential panel (Bld)on 70-51-6486Clqmswwmh (Bld) [#/Vol]0.03 10*3/uLNormal<0.11CHolmes County [facility] on above:Order Comment: Specimen Type: BLOOD SPECIMENOrdering Facility: [facility] Address:[address] [place], [place] [address]Performed By: #### [id number] ####[facility]ENTERTOM [facility] LABCLIA [id number] [place], [place] [address]Ipfbnizgj/100 WBC (Bld)0.5 % NormalUniversity Hospitals Health System on above:Order Comment: Specimen Type: BLOOD SPECIMENOrdering Facility: [facility] Address:[address] [place], [place] [address]Performed By: #### 84367-1 ####[facility] LABIA [id number] [place] [address] Differential cell count method Nom (Bld)AutoNormalClevelCentral Carolina Hospital Comment on above:Order Comment: Specimen Type: BLOOD SPECIMENOrdering Facility: [facility] Address:[address] [place] [address] Performed By: #### 29601-2 ####[facility] LABIA [id number] [place], [place] [address]Pkcnwqhhlpa (Bld) [#/Vol]0.18 10*3/uLNormal<0.46[facility] on above:Order Comment: Specimen Type: BLOOD SPECIMENOrdering Facility: [facility] Address:[address] [place], [place] [address]Performed By: #### 38198-7 ####[facility] LABIA [id number] [place], [place] [address]Twrccuvxzza/100 WBC (Bld)3.0 %NormalWood County HospitalComment on above:Order Comment: Specimen Type: BLOOD SPECIMENOrdering Facility: [facility] Address:[address] [place], [place] [address]Performed By: #### 11218-9 ####[facility] LABIA [id number] [place], [place] [address]Sdnuvcmdbrn distribution width (RBC) [Ratio]13.0 %Zguchf21.5-15.0[facility] on above: Order Comment: Specimen Type: BLOOD SPECIMENOrdering Facility: [facility] Address:[address] [place], [place] [address]Performed By: #### 36384- 8 ####[facility] LABIA [id number] [place], [place] [address]Naqkjtijjy (Bld) [Volume fraction]34.1 %Low36.0-46.0 [facility] on above:Order Comment: Specimen Type: BLOOD SPECIMENOrdering Facility: [facility] Address:[address] [place], [place] [address]Performed By: #### 62940-7 ####[facility] LABCLIA [id number] [place], [place] [address]Xzjokpltyi (Bld) [Mass/Vol]11.3 g/dLLow11.5-15.5CHolmes County [facility] on above:Order Comment: Specimen Type: BLOOD SPECIMENOrdering Facility: [facility] Address:[address] [place], [place] [address]Performed By: #### 04316- 8 ####[facility] LABCLIA [id number] [place], [place] [address]Fpvsuyoi granulocytes (Bld) [#/Vol]10*3/uLNormal<0.10 [facility] on above:Order Comment: Specimen Type: BLOOD SPECIMENOrdering Facility: [facility] Address:[address] [address] [place], [place] [address]Performed By: #### 53554-3 ####[facility] LABIA [id number] [place], [place] [address]Zytuqqdr granulocytes/100 WBC (Bld)0.2 %NormalUniversity Hospitals Health System on above: Order Comment: Specimen Type: BLOOD SPECIMENOrdering Facility: [facility] Address:[address] [place], [place] [address]Performed By: #### 73433- 8 ####[facility] LABCLIA [id number] [place], [place] [address]Hktbnodcfcj (Bld) [#/Vol]1.32 10*3/uLNormal1.00-4.00 [facility] on above:Order Comment: Specimen Type: BLOOD SPECIMENOrdering Facility: [facility] Address:[address] [place], [place] [address]Performed By: #### 63997-5 ####[facility] LABCLIA [id number] [place], [place] [address]Emesmlkyffy/100 WBC (Bld)21.7 %NormalUniversity Hospitals Health System on above:Order Comment: Specimen Type: BLOOD SPECIMENOrdering Facility: [facility] Address:[address] [place], [place] [address]Performed By: #### 59824-4 ####[facility] LABCLIA [id number] [place], [place] [address]NAH (RBC) [Entitic mass]29.0 bmXnymhu16.0-34.0[facility] on above:Order Comment: Specimen Type: BLOOD SPECIMENOrdering Facility: [facility] Address:[address] [place], [place] [address]Performed By: #### 02814-7 ####[facility] LABCLIA [id number] [place], [place] [address]DQMI (RBC) [Mass/Vol]33.1 g/jQKzymou86.5-36.0[facility] on above: Order Comment: Specimen Type: BLOOD SPECIMENOrdering Facility: [facility] Address:[address] [place], [place] [address]Performed By: #### 94580- 8 ####[facility] LABCLIA [id number] [place], [place] [address]EEL (RBC) [Entitic vol]87.7 uEHooeww00.0-100.0[facility] on above:Order Comment: Specimen Type: BLOOD SPECIMENOrdering Facility: [facility] Address:[address] [place], [place] [address]Performed By: #### 13114-2 ####[facility] LABIA [id number] [place], [place] [address]Wliuowmrv (Bld) [#/Vol]0.30 10*3/uLNormal<0.87[facility] on above:Order Comment: Specimen Type: BLOOD SPECIMENOrdering Facility: [facility] Address:[address] [place], [place] [address]Performed By: #### 62298- 8 ####[facility] LABCLIA [id number] [place], [place] [address]Gjclryofs/100 WBC (Bld)4.9 %NormalUniversity Hospitals Health System on above:Order Comment: Specimen Type: BLOOD SPECIMENOrdering Facility: [facility] Address:[address] [place], [place] [address]Performed By: #### 29304-7 ####[facility] LABCLIA [id number] [place], [place] [address]Yxpvojzlhuz (Bld) [#/Vol]4.25 10*3/uLNormal1.45-7.50[facility] on above:Order Comment: Specimen Type: BLOOD SPECIMENOrdering Facility: [facility] Address:[address] [place], [place] [address]Performed By: #### 52632-5 ####[facility] LABCLIA [id number] [place], [place] [address]Irsosfykhow/100 WBC (Bld)69.7 %NormalUniversity Hospitals Health System on above:Order Comment: Specimen Type: BLOOD SPECIMENOrdering Facility: [facility] Address:[address] [place], [place] [address]Performed By: #### 73010-4 ####[facility] LABCLIA [id number] [place], [place] [address]Zsyzrkryb RBC (Bld) [#/Vol] 10*3/uLNormal<0.01[facility] on above:Order Comment: Specimen Type: BLOOD SPECIMENOrdering Facility: [facility] Address:[address] [place], [place] [address]Performed By: #### 69303-2 ####[facility] LABCLIA [id number] [place], [place] [address]Vgptrumqv RBC/100 WBC (Bld) [Ratio]0.0 /100 WBCNormal [facility] on above:Order Comment: Specimen Type: BLOOD SPECIMENOrdering Facility: [facility] Address:[address] [place], [place] [address]Performed By: #### 94222-1 ####[facility] LABCLIA [id number] [place], [place] [address]Pjcvhrvl mean volume (Bld) [Entitic vol]11.2 fLNormal9.0-12.7CHol[facility] on above:Order Comment: Specimen Type: BLOOD SPECIMENOrdering Facility: [facility] Address:[address] [place] [address] Performed By: #### 30550-3 ####[facility] LABIA [id number] [place], [place] [address]Snvxdfhok (Bld) [#/Vol]185 10*3/mACafrtx801-086GdvnxgbhtUniversity Hospitals Health System on above:Order Comment: Specimen Type: BLOOD SPECIMENOrdering Facility: [facility] Address:[address] [place], [place] [address]Performed By: #### 81624-2 ####[facility] LABCLIA [id number] [place], [place] [address]ZLC (Bld) [#/Vol]3.89 10*6/uLLow3.90-5.20[facility] on above:Order Comment: Specimen Type: BLOOD SPECIMENOrdering Facility: [facility] Address:[address] [place], [place] [address]Performed By: #### 35772-4 ####[facility] LABCLIA [id number] [place], [place] [address]SNI (Bld) [#/Vol]6.09 10*3/uL Normal3.70-11.00[facility] on above:Order Comment: Specimen Type: BLOOD SPECIMENOrdering Facility: [facility] Address:[address] [place], [place] [address]Performed By: #### 53495-9 ####[facility] LABCLIA [id number] [place], [place] [address]VLO SerPl-mCncon 00-44-2396XFC [Mass/Vol]0.4 mg/dLNormal <0.9CHol[facility] on above:Order Comment: Specimen Type: BLOOD SPECIMENOrdering Facility: [facility] Address:[address] [place], [place] [address]Performed By: #### 40956-0, 1987-, 3015-3 ####[facility] LABCLIA [id number] [facility] [id number] [place] [address] OF [facility]OSPITALComprehensive metabolic 2000 panelon 87-56-3391Tlekjan [Mass/Vol]4.2 g/dLNormal3.9-4.9CH[facility] on above:Order Comment: Specimen Type: BLOOD SPECIMENOrdering Facility: [facility] Address:[address] [place], [place] [address]Performed By: #### 2777-1, , ####[facility] LABCLIA [id number] [place], [place] [address]DSG [Catalytic activity/Vol]88 U/MUwqicm37-535WptgcifnmUniversity Hospitals Health System on above:Order Comment: Specimen Type: BLOOD SPECIMENOrdering Facility: [facility] Address:[address] [place], [place] [address]Performed By: #### 2777- 1, , ####[facility] LABCLIA [id number] [place], [place] [address]QSH [Catalytic activity/Vol]26 U/LNormal7-38 [facility] on above:Order Comment: Specimen Type: BLOOD SPECIMENOrdering Facility: [facility] Address:[address] [place], [place] [address]Performed By: #### 2777-1, , ####[facility] LABCLIA [id number] [place], [place] [address]Gcifx gap [Moles/Vol]13 mmol/LNormal8-15[facility] on above:Order Comment: Specimen Type: BLOOD SPECIMENOrdering Facility: [facility] Address:[address] [place] [address] Performed By: #### 2777-1, , ####[facility] LABCLIA [id number] [place], [place] [address]WUP [Catalytic activity/Vol]27 U/LRxwlia52-77TngppuumqUniversity Hospitals Health System on above:Order Comment: Specimen Type: BLOOD SPECIMENOrdering Facility: [facility] Address:[address] [place], [place] [address]Performed By: #### 2777- 1, , ####[facility] LABCLIA [id number] [place], [place] [address]Hiicrnkuj [Mass/Vol]0.4 mg/dLNormal0.2-1.3 [facility] on above:Order Comment: Specimen Type: BLOOD SPECIMENOrdering Facility: [facility] Address:[address] [place], [place] [address]Performed By: #### 2777-1, , ####[facility] LABCLIA [id number] [place], [place] [address]Dcbrspe [Mass/Vol]9.3 mg/dLNormal8.5-10.2CHol[facility] on above:Order Comment: Specimen Type: BLOOD SPECIMENOrdering Facility: [facility] Address:[address] [place] [address] Performed By: #### 2777-1, , ####[facility] LABCLIA [id number] [place], [place] [address]Mgsiljoj [Moles/Vol]99 mmol/YDjsjlw50-384MelasrzmpKettering Health Springfieldment on above:Order Comment: Specimen Type: BLOOD SPECIMENOrdering Facility: [facility] Address:[address] [place] [address]Iklndbdpb By: #### 2777- 1, , ####[facility] LABCLIA [id number] [place], [place] [address]NK2 [Moles/Vol]24 mmol/NInlurf49-72RjxfnmrpaUniversity Hospitals Health System on above:Order Comment: Specimen Type: BLOOD SPECIMENOrdering Facility: [facility] Address:[address] [place], [place] [address]Performed By: #### 2777-1, , ####[facility] LABCLIA [id number] [place], [place] [address]Vesucekvfg [Mass/Vol]0.64 mg/dLNormal0.58-0.96[facility] Comment on above:Order Comment: Specimen Type: BLOOD SPECIMENOrdering Facility: [facility] Address:[address] [place] [address] Performed By: #### 2777-1, , ####[facility] LABCLIA [id number] [place], [place] [address]sFGMil SerPlBld CKD-EPI 8722132 mL/min/1.73m???Normal>=60[facility] on above:Order Comment: Specimen Type: BLOOD SPECIMENOrdering Facility: [facility] Address:[address] [place] [address]Blakxt Comment: Estimated Glomerular Filtration Rate (eGFR) is calculated using the 2020 CKD-EPI creatinine equation. This equation utilizes serum creatinine, sex, and age as parameters. The creatinine assay has traceable calibration to isotope dilution- mass spectrometry. Refer to KDIGO guidelines for clinical interpretation. In patients with unstable renal function, e.g. those with acute kidney injury, the eGFR may not accurately reflect actual GFR.Performed By: #### 2777-1, , ####[facility] LABCLIA [id number] [place], [place] [address]Aspnmkx [Mass/Vol]100 mg/nDJtkk03-19ZwoawzxobUniversity Hospitals Health System on above:Order Comment: Specimen Type: BLOOD SPECIMENOrdering Facility: [facility] Address:[address] [place], [place] [address]Zfpwil Comment: The [place] Diabetes Association (ADA) provides guidance for cutoff values for fasting glucose and random glucose. The ADA defines fasting as no caloric intake for at least 8 hours. Fasting plasma glucose results between 100 to 125 mg/dL indicate increased risk for diabetes (prediab etes).Fasting plasma glucose results greater than or equal to 126 mg/dL meet the criteria for diagnosis of diabetes. In the absence of unequivocal hyperglycemia, results should be confirmed by repeattesting. In a patient with classic symptoms of hyperglycemia or hyperglycemic crisis, random plasmaglucose results greater than or equal to 200 mg/dL meet the criteria for diagnosis of diabetes.Reference: Standards of Medical Care in Diabetes 2016, [place] [employer] Association. Diabetes Care. 2016.39(Suppl 1).Performed By: #### 2777-1, , ####[facility] LABCLIA [id number] [place], [place] [address]Ytncuqptp [Moles/Vol]4.0 mmol/LNormal3.7-5.1 [facility] on above:Order Comment: Specimen Type: BLOOD SPECIMENOrdering Facility: [facility] Address:[address] [place], [place] [address]Vqncregil By: #### 2777-1, , ####[facility] LABCLIA [id number] [place], [place] [address]Monpzdt [Mass/Vol]7.1 g/dLNormal6.3-8.0[facility] on above:Order Comment: Specimen Type: BLOOD SPECIMENOrdering Facility: [facility] Address:[address] [place], [place] [address]Performed By: #### 2777-1, , ####[facility] LABCLIA [id number] [place], [place] [address]Pgyaxw [Moles/Vol]136 mmol/L Vtofpw019-164RulszxseiUniversity Hospitals Health System on above:Order Comment: Specimen Type: BLOOD SPECIMENOrdering Facility: [facility] Address:[address] [place], [place] [address]Performed By: #### 2777-1, , ####[facility] LABCLIA [id number] [place], [place] [address]Cnrq nitrogen [Mass/Vol]16 mg/dLNormal7-21[facility] on above:Order Comment: Specimen Type: BLOOD SPECIMENOrdering Facility: [facility] Address:[address] [place], [place] [address]Performed By: #### 2777-1, , ####[facility] LABCLIA [id number] [place], [place] [address]Slcr and Iron binding capacity panelon 80-58-4781Hqmj [Mass/Vol]48 ug/dL Bkajwr26-722MixyuekbtUniversity Hospitals Health System on above:Order Comment: Specimen Type: BLOOD SPECIMENOrdering Facility: [facility] Address:[address] [place], [place] [address]Performed By: #### 45509-4, 1987-, 3015-09 ####[facility] LABCLIA [id number] [address] [address] [facility] OF AMERICAIron binding capacity [Mass/Vol] 410 ug/xHTlfo820-779TreikiuvuUniversity Hospitals Health System on above:Order Comment: Specimen Type: BLOOD SPECIMENOrdering Facility: [facility] Address:[address] [place], [place] [address]Performed By: #### 59938-3, 1987-11, 3015-09 ####[facility] LABCLIA [id number] [place] [address] [place] AMERICAIron/TIBC [Molar ratio]11.7 %Low 15.0-57.0[facility] County HospitalComment on above:Order Comment: Specimen Type: BLOOD SPECIMENOrdering Facility: [facility] Address:[address] [place], [place] [address]Performed By: #### 30145-5, 1987-11, 3015-09 ####[facility] LABCLIA [id number] [place] [address] [place] AMERICAMagnesium SerPl-mCncon 03-22-2025 Magnesium [Mass/Vol]1.8 mg/dLNormal1.7-2.3CHol[facility] on above:Order Comment: Specimen Type: BLOOD SPECIMENOrdering Facility: [facility] Address:[address] [place], [place] [address]Performed By: #### 2777-1, , ####[facility] LABCLIA [id number] [place], [place] [address]Qjwbpijju SerPl-mCncon 13-59-4288Fngixmnus [Mass/Vol]3.8 mg/dLNormal2.7-4.8CMercy Health [facility] Comment on above:Order Comment: Specimen Type: BLOOD SPECIMENOrdering Facility: [facility] Address:[address] [place] [address] Performed By: #### 2777-1, , ####[facility] LABCLIA [id number] [place], [place] [address]PKK SerPl-aCnc on 51-86-6398PUW Qn1.490 m[IU]/LNormal0.270-4.200[facility] Comment on above:Order Comment: Specimen Type: BLOOD SPECIMENOrdering Facility: [facility] Address:[address] [place], [place] [address]Result Comment: If the patient is , TSH reference range varies by gestational period:First Trimester (weeks 9-12): 0.180-2.990 mIU/LSecond Trimester: 0.110- 3.980 mIU/LThird Trimester: 0.480-4.710 mIU/LDjony Nova et al. A Practical Approach for the Verifications and Determination of Site- and Trimester-Specific Reference Intervals for Thyroid Function tests in . Thyroid, 2019:29:3:412-420. Wilver E, et al. 2017 Guidelines of the [place] Thyroid Association for the Diagnosis and Management of Thyroid Disease during and the . Thyroid, 2017:27:3:315-389.Performed By: #### 33817-2, 1987-5, 3016-3 ####[facility] LABCLIA [id number] [place] [address] [place] AMERICAC diff Tox gens Stl Ql CARLOTTA+probeon 03-14-2025. difficile toxin genes CARLOTTA+probe Ql (Stl)NegativeNormal Negative for C. difficile toxin by PCRKettering Health Springfieldment on above:Order Comment: Specimen Type: STOOL SPECIMENOrdering Facility: [facility] Address:[address] [place], [place] [address]Performed By: #### 54327-7 ####[facility]ITAL[facility] [id number] [place] [address] [place] [facility] HOSPITALGastrointestinal pathogens identified CARLOTTA+probe Nom (Stl)on 45-19-9604Sljeylteieazp sp DNA CARLOTTA+probe Nom (Unsp spec)Not detectedNormalNot DetectedUniversity Hospitals Health System on above:Order Comment: Specimen Type: STOOL SPECIMENOrdering Facility: [facility] Address:[address] [place], [place] [address]Performed By: #### 33694-8 ####[facility] LABIA [id number] [address] [place] Salmonella sp DNA CARLOTTA+probe Ql (Unsp spec)Not detectedNormalNot Detected [facility] on above:Order Comment: Specimen Type: STOOL SPECIMENOrdering Facility: [facility] Address:[address] [place], [place] [address]Performed By: #### 64878-5 ####[facility] LABCLIA [id number] [address] OF [facility]LEY HOSPITALShiga toxin stx gene CARLOTTA+probe Nom (Unsp spec)Not detectedNormalNot DetectedUniversity Hospitals Health System on above:Order Comment: Specimen Type: STOOL SPECIMENOrdering Facility: [facility] Address:[address] [place], [place] [address]Performed By: #### 63427-5 ####[facility] LABCLIA [id number] [address] STATES OF [facility] HOSPITALShigella sp DNA CARLOTTA+probe Ql (Unsp spec)Not detected NormalNot DetectedUniversity Hospitals Health System on above:Order Comment: Specimen Type: STOOL SPECIMENOrdering Facility: [facility] Address:[address] [place], [place] [address]Performed By: #### 32040-6 ####[facility] LABCLIA [id number] [place] [address] [place] AMERICACNPNon 14-48-7601CQRDRbugve Wood County HospitalCNPNon 24-34-6551YEOQYctvbdOwjyroxgw [facility] CBC panel Auto (Bld)on 86-91-8755Rszzhwegifu distribution width (RBC) [Ratio] 12.3 %Fjwkiy35.5-15.0[facility] on above:Order Comment: Specimen Type: BLOOD SPECIMENOrdering Facility: [facility] Address:[address] [place], [place] [address]Performed By: #### 16467-0 ####[facility] LABCLIA [id number] [place], [place] [address]Cbfzwmbkoo (Bld) [Volume fraction]31.3 %Low36.0-46.0 [facility] on above:Order Comment: Specimen Type: BLOOD SPECIMENOrdering Facility: [facility] Address:[address] [place], [place] [address]Performed By: #### 90829-4 ####[facility] LABCLIA [id number] [place], [place] [address]Pjmuotplrt (Bld) [Mass/Vol]10.4 g/dLLow11.5-15.5CHol[facility] on above:Order Comment: Specimen Type: BLOOD SPECIMENOrdering Facility: [facility] Address:[address] [place], [place] [address]Performed By: #### 28795- 2 ####[facility] LABCLIA [id number] [place], [place] [address]BTL (RBC) [Entitic mass]29.5 kxHrmwku85.0-34.0[facility] on above:Order Comment: Specimen Type: BLOOD SPECIMENOrdering Facility: [facility] Address:[address] [place], [place] [address]Performed By: #### 72547-0 ####[facility] LABCLIA [id number] [place], [place] [address]BUFZ (RBC) [Mass/Vol]33.2 g/pDGiirlu03.5-36.0[facility] on above: Order Comment: Specimen Type: BLOOD SPECIMENOrdering Facility: [facility] Address:[address] [place], [place] [address]Performed By: #### 24793- 2 ####[facility] LABCLIA [id number] [place], [place] [address]LHN (RBC) [Entitic vol]88.9 kRRvfyyt85.0-100.0[facility] on above:Order Comment: Specimen Type: BLOOD SPECIMENOrdering Facility: [facility] Address:[address] [place], [place] [address]Performed By: #### 11010-7 ####[facility] LABCLIA [id number] [place], [place] [address]Zvkohfyqk RBC (Bld) [#/Vol]10*3/uLNormal<0.01[facility] on above:Order Comment: Specimen Type: BLOOD SPECIMENOrdering Facility: [facility] Address:[address] [place], [place] [address]Performed By: #### 09210- 2 ####[facility] LABCLIA [id number] [place], [place] [address]Ijwehwvt mean volume (Bld) [Entitic vol]11.1 fLNormal 9.0-12.7CHol[facility] on above:Order Comment: Specimen Type: BLOOD SPECIMENOrdering Facility: [facility] Address:[address] [place], [place] [address]Performed By: #### 44741-9 ####[facility] LABIA [id number] [place], [place] [address]Nlqhbwxia (Bld) [#/Vol]369 10*3/gMXqgltw074-606HawhoxeyhUniversity Hospitals Health System on above: Order Comment: Specimen Type: BLOOD SPECIMENOrdering Facility: [facility] Address:[address] [place], [place] [address]Performed By: #### 93049- 2 ####[facility] LABCLIA [id number] [place], [place] [address]PKT (Bld) [#/Vol]3.52 10*6/uLLow3.90-5.20[facility] on above:Order Comment: Specimen Type: BLOOD SPECIMENOrdering Facility: [facility] Address:[address] [place], [place] [address]Performed By: #### 73030-7 ####[facility] LABCLIA [id number] [place], [place] [address]OAF (Bld) [#/Vol]6.32 10*3/uL Normal3.70-11.00[facility] on above:Order Comment: Specimen Type: BLOOD SPECIMENOrdering Facility: [facility] Address:[address] [place], [place] [address]Performed By: #### 70379-9 ####[facility] LABCLIA [id number] [place], [place] [address]RKUPje 25-88-5863PGAQJekcpkYprgkuhdg [facility] Comprehensive metabolic 2000 panelon 46-88-4453Elzkvip [Mass/Vol]4.1 g/dLNormal 3.9-4.9CMercy Health Urbana HospitalComment on above:Order Comment: Specimen Type: BLOOD SPECIMENOrdering Facility: [facility] Address:[address] [place], [place] [address]Performed By: #### 2777-1, , ####[facility] LABCLIA [id number] [place], [place] [address]XBZ [Catalytic activity/Vol]102 U/IKitxay13-126KroyjoiiaUniversity Hospitals Health System on above:Order Comment: Specimen Type: BLOOD SPECIMENOrdering Facility: [facility] Address:[address] [place], [place] [address]Performed By: #### 2777-1, , 45688-9 ####[facility] LABCLIA [id number] [place], [place] [address]LBL [Catalytic activity/Vol]16 U/LNormal7-38[facility] Comment on above:Order Comment: Specimen Type: BLOOD SPECIMENOrdering Facility: [facility] Address:[address] [place] [address] Performed By: #### 2777-1, , ####[facility] LABCLIA [id number] [place], [place] [address]Drmfr gap [Moles/Vol]15 mmol/LNormal8-15[facility] on above:Order Comment: Specimen Type: BLOOD SPECIMENOrdering Facility: [facility] Address:[address] [place], [place] [address]Performed By: #### 2777- 1, , 26141-2 ####[facility] LABCLIA [id number] [place], [place] [address]UGK [Catalytic activity/Vol]18 U/LNormal 13-35[facility] on above:Order Comment: Specimen Type: BLOOD SPECIMENOrdering Facility: [facility] Address:[address] [place], [place] [address]Performed By: #### 2777-1, , 64134-3 ####[facility] LABCLIA [id number] [place], [place] [address]Icxapylib [Mass/Vol]0.3 mg/dLNormal0.2-1.3[facility] on above:Order Comment: Specimen Type: BLOOD SPECIMENOrdering Facility: [facility] Address:[address] [place], [place] [address]Performed By: #### 2777-1, , 50012-9 ####[facility] LABCLIA [id number] [place], [place] [address]Ixrszzz [Mass/Vol]9.1 mg/dLNormal8.5-10.2CHolmes [facility] on above:Order Comment: Specimen Type: BLOOD SPECIMENOrdering Facility: [facility] Address:[address] [place] [address] Performed By: #### 2777-1, , 35833-7 ####[facility] LABCLIA [id number] [place], [place] [address]Prrpqrmv [Moles/Vol]101 mmol/SJdvvty81-811MgwvqplvoUniversity Hospitals Health System on above: Order Comment: Specimen Type: BLOOD SPECIMENOrdering Facility: [facility] Address:[address] [place] [address]Vqqvwlonf By: #### 2777- 1, , ####[facility] LABCLIA [id number] [place], [place] [address]LW0 [Moles/Vol]22 mmol/GWglhgs56-37CgnxbcswcUniversity Hospitals Health System on above:Order Comment: Specimen Type: BLOOD SPECIMENOrdering Facility: [facility] Address:[address] [place] [address]Wjtyevezf By: #### 2777-1, , ####[facility] LABCLIA [id number] [place], [place] [address]Hxkuavypzb [Mass/Vol]0.54 mg/dLLow0.58-0.96[facility] Comment on above:Order Comment: Specimen Type: BLOOD SPECIMENOrdering Facility: [facility] Address:[address] [place], [place] [address] Performed By: #### 2777-1, , ####[facility] LABCLIA [id number] [place], [place] [address]pEDBro SerPlBld CKD-EPI 7192427 mL/min/1.73m???Normal>=60[facility] on above:Order Comment: Specimen Type: BLOOD SPECIMENOrdering Facility: [facility] Address:[address] [place] [address]Uqervy Comment: Estimated Glomerular Filtration Rate (eGFR) is calculated using the 2020 CKD-EPI creatinine equation. This equation utilizes serum creatinine, sex, and age as parameters. The creatinine assay has traceable calibration to isotope dilution- mass spectrometry. Refer to KDIGO guidelines for clinical interpretation. In patients with unstable renal function, e.g. those with acute kidney injury, the eGFR may not accurately reflect actual GFR.Performed By: #### 2777-1, , ####[facility] LABCLIA [id number] [place], [place] [address]Xidyuxa [Mass/Vol]107 mg/rTHmbu50-77VmqsevsdlUniversity Hospitals Health System on above:Order Comment: Specimen Type: BLOOD SPECIMENOrdering Facility: [facility] Address:[address] [place] [address]Qqjrod Comment: The [place] Diabetes Association (ADA) provides guidance for cutoff values for fasting glucose and random glucose. The ADA defines fasting as no caloric intake for at least 8 hours. Fasting plasma glucose results between 100 to 125 mg/dL indicate increased risk for diabetes (prediab etes).Fasting plasma glucose results greater than or equal to 126 mg/dL meet the criteria for diagnosis of diabetes. In the absence of unequivocal hyperglycemia, results should be confirmed by repeattesting. In a patient with classic symptoms of hyperglycemia or hyperglycemic crisis, random plasmaglucose results greater than or equal to 200 mg/dL meet the criteria for diagnosis of diabetes.Reference: Standards of Medical Care in Diabetes 2016, [place] [employer]. Diabetes Care. 2016.39(Suppl 1).Performed By: #### 2777-1, , ####[facility] LABCLIA [id number] [place], [place] [address]Dviugexjp [Moles/Vol]4.3 mmol/LNormal3.7-5.1 [facility] on above:Order Comment: Specimen Type: BLOOD SPECIMENOrdering Facility: [facility] Address:[address] [place] [address]Ycdgfwgrc By: #### 2777-1, , ####[facility] LABCLIA [id number] [place], [place] [address]Llllxqe [Mass/Vol]7.2 g/dLNormal6.3-8.0[facility] on above:Order Comment: Specimen Type: BLOOD SPECIMENOrdering Facility: [facility] Address:[address] [place] [address]Abwntxbkl By: #### 2777-1, 65942-9, 49814-2 ####[facility] LABCLIA [id number] [place], [place] [address]Bfiepa [Moles/Vol]138 mmol/L Vsyijo915-638DmkjispsiUniversity Hospitals Health System on above:Order Comment: Specimen Type: BLOOD SPECIMENOrdering Facility: [facility] Address:[address] [place], [place] [address]Performed By: #### 2777-1, 40808-2, 05581-7 ####[facility] LABCLIA [id number] [place], [place] [address]Tydi nitrogen [Mass/Vol]22 mg/dLHigh7-21[facility] on above:Order Comment: Specimen Type: BLOOD SPECIMENOrdering Facility: [facility] Address:[address] [place], [place] [address]Performed By: #### 2777-1, , 54512-0 ####[facility] LABCLIA [id number] [place], [place] [address]Vsdxrewch SerPl-mCncon 88-44-1027Ohaomdizj [Mass/Vol]2.0 mg/dLNormal1.7-2.3CHolmes [facility] on above:Order Comment: Specimen Type: BLOOD SPECIMENOrdering Facility: [facility] Address:[address] [place], [place] [address]Performed By: #### 2777-1, , 41433-9 ####[facility] LABCLIA [id number] [place], [place] [address]Pkwkionce SerPl-mCncon 06-28-7512Nahtqpanb [Mass/Vol]4.3 mg/dLNormal2.7-4.8 [facility] on above:Order Comment: Specimen Type: BLOOD SPECIMENOrdering Facility: [facility] Address:[address] [place], [place] [address]Performed By: #### 2777-1, , 33834-3 ####[facility] LABCLIA [id number] [place], [place] [address]MLQ panel Auto (Bld)on 69-20-5250Mbchqubvdgf distribution width (RBC) [Ratio]12.8 %11.5 - 15.0 %[facility] Medical CenterHematocrit (Bld) [Volume fraction]32.1 %Low36.0 - 46.0 %[facility] Medical CenterHemoglobin (Bld) [Mass/Vol]10.6 g/dLLow11.5 - 15.5 g/dLUniversity Hospitals Geneva Medical CenterInterpretation and review of laboratory resultsAbnormal [facility] Medical CenterMCH (RBC) [Entitic mass]29.7 pg26.0 - 34.0 pgCCorey Hospital MCHC (RBC) [Mass/Vol]33.0 g/dL30.5 - 36.0 g/dLUniversity Hospitals Geneva Medical CenterMCV (RBC) [Entitic vol]89.9 fL80.0 - 100.0 fLCCorey HospitalNucleated RBC (Bld) [#/Vol]NINF [facility] Medical CenterPlatelet mean volume (Bld) [Entitic vol]10.5 fL9.0 - 12.7 fL [facility] Medical CenterPlatelets (Bld) [#/Vol]401 10*3/uLHighUniversity Hospitals Geneva Medical CenterRBC (Bld) [#/Vol]3.57 10*6/uLLow3.90 - 5.20 m/uLUniversity Hospitals Geneva Medical CenterWBC (Bld) [#/Vol]7.63 10*3/uLUC HealthErythrocyte distribution width (RBC) [Ratio]12.8 %Gqfrmk60.5-15.0[facility] on above:Order Comment: Specimen Type: BLOOD SPECIMENOrdering Facility: [facility] Address:[address] [place], [place] [address]Performed By: #### 03010- 2 ####[facility] LABCLIA [id number] [place], [place] [address]Uaxfpojuii (Bld) [Volume fraction]32.1 %Low36.0-46.0 [facility] on above:Order Comment: Specimen Type: BLOOD SPECIMENOrdering Facility: [facility] Address:[address] [place], [place] [address]Performed By: #### 37781-0 ####[facility] LABIA [id number] [place], [place] [address]Furdbpnolo (Bld) [Mass/Vol]10.6 g/dLLow11.5-15.5CHolmes [facility] on above:Order Comment: Specimen Type: BLOOD SPECIMENOrdering Facility: [facility] Address:[address] [place], [place] [address]Performed By: #### 72198- 2 ####[facility] LABIA [id number] [place], [place] [address]FIX (RBC) [Entitic mass]29.7 yjVayghm32.0-34.0[facility] on above:Order Comment: Specimen Type: BLOOD SPECIMENOrdering Facility: [facility] Address:[address] [place], [place] [address]Performed By: #### 22380-5 ####[facility] LABIA [id number] [place], [place] [address]WMOY (RBC) [Mass/Vol]33.0 g/hWHgthdu02.5-36.0[facility] on above: Order Comment: Specimen Type: BLOOD SPECIMENOrdering Facility: [facility] Address:[address] [place], [place] [address]Performed By: #### 75114- 2 ####[facility] LABIA [id number] [place], [place] [address]QKJ (RBC) [Entitic vol]89.9 qPVkkceb61.0-100.0[facility] on above:Order Comment: Specimen Type: BLOOD SPECIMENOrdering Facility: [facility] Address:[address] [place], [place] [address]Performed By: #### 93709-1 ####[facility] LABCLIA [id number] [place], [place] [address]Ozhrnarou RBC (Bld) [#/Vol]10*3/uLNormal<0.01[facility] on above:Order Comment: Specimen Type: BLOOD SPECIMENOrdering Facility: [facility] Address:[address] [place], [place] [address]Performed By: #### 81786- 2 ####[facility] LABCLIA [id number] [place], [place] [address]Vmqhqyxj mean volume (Bld) [Entitic vol]10.5 fLNormal 9.0-12.7CHolmes [facility] on above:Order Comment: Specimen Type: BLOOD SPECIMENOrdering Facility: [facility] Address:[address] [place], [place] [address]Performed By: #### 00787-7 ####[facility] LABIA [id number] [place], [place] [address]Kkmglefwr (Bld) [#/Vol]401 10*3/eNXkzw791-971AbzjhfwamUniversity Hospitals Health System on above: Order Comment: Specimen Type: BLOOD SPECIMENOrdering Facility: [facility] Address:[address] [place], [place] [address]Performed By: #### 31205- 2 ####[facility] LABCLIA [id number] [place], [place] [address]HZP (Bld) [#/Vol]3.57 10*6/uLLow3.90-5.20[facility] on above:Order Comment: Specimen Type: BLOOD SPECIMENOrdering Facility: [facility] Address:[address] [place], [place] [address]Performed By: #### 41495-3 ####[facility] LABCLIA [id number] [place], [place] [address]LZW (Bld) [#/Vol]7.63 10*3/uL Normal3.70-11.00[facility] on above:Order Comment: Specimen Type: BLOOD SPECIMENOrdering Facility: [facility] Address:[place], [place] [address]Loulkxpgw By: #### 23110-4 ####[facility] LABCLIA [id number] [place], [place] [address]XRXDoh 66-92-3259LZVMBlckbqJuwjqxemdCity Hospital metabolic 2000 panelOrdered By: Raheem Pozo on 08-07-8124Rpangov [Mass/Vol]3.9 g/dL3.9 - 4.9 g/dLBoca Raton ClinicALP [Catalytic activity/Vol]133 U/LHigh34 - 123 U/LCleveland ClinicALT [Catalytic activity/Vol]27 U/L7 - 38 U/L [facility] CenterAnion gap [Moles/Vol]11 mmol/L8 - 15 mmol/LCleveland ClinicAST [Catalytic activity/Vol]39 U/LHigh13 - 35 U/LCleveland ClinicBilirubin [Mass/Vol]0.4 mg/dL0.2 - 1.3 mg/dLBoca Raton ClinicCalcium [Mass/Vol]9.2 mg/dL8.5 - 10.2 mg/dLBoca Raton ClinicChloride [Moles/Vol]99 mmol/L98 - 107 mmol/L [place] ClinicCO2 [Moles/Vol]23 mmol/L22 - 30 mmol/LCleveland ClinicCreatinine [Mass/Vol]0.61 mg/dL0.58 - 0.96 mg/dLUniversity Hospitals Geneva Medical CenterGFR/1.73 sq M.predicted among non-blacks MDRD (S/P/Bld) [Vol rate/Area]118 mL/min/{1.73_m2}- PINF [facility] on above:Estimated Glomerular Filtration Rate (eGFR) is calculated using the 2020 CKD-EPI creatinine equation. This equation utilizes serum creatinine, sex, and age as parameters. The creatinine assay has traceable calibration to isotope dilution-mass spectrometry. Refer to KDIGO guidelines for clinical interpretation. In patients with unstable renal function, e.g. those with acute kidney injury, the eGFRmay not accurately reflect actual GFR.Glucose [Mass/Vol]104 mg/zQVhsh04 - 99 mg/dLChillicothe VA Medical Center on above:The [place] Diabetes Association (ADA) provides guidance for cutoff values for fasting glucose andrandom glucose. The ADA defines fasting as no [...] Standards of Medical Care in Diabetes 2016, [place] [employer]. Diabetes Care. 2016.39(Suppl 1). Interpretation and review of laboratory resultsAbnormalCleveland ClinicPotassium [Moles/Vol]4.1 mmol/L3.7 - 5.1 mmol/LCnewark hospital ClinicProtein [Mass/Vol]7.4 g/dL 6.3 - 8.0 g/dLProMedica Toledo Hospitalodium [Moles/Vol]133 mmol/RQtm907 - 144 mmol/L [facility] Medical CenterUrea nitrogen [Mass/Vol]15 mg/dL7 - 21 mg/dLClinton Memorial HospitalComprehensive metabolic 2000 panelon 71-04-1306Lnterze [Mass/Vol]3.9 g/dLNormal3.9-4.9CHol[facility] on above:Order Comment: Specimen Type: BLOOD SPECIMENOrdering Facility: [facility] Address:[address] [place] [address]Eggzohnov By: #### 2777- 1, , ####[facility] LABCLIA [id number] [place], [place] [address]GWY [Catalytic activity/Vol]133 U/LHigh 34-123[facility] on above:Order Comment: Specimen Type: BLOOD SPECIMENOrdering Facility: [facility] Address:[address] [place] [address]Kxioakegi By: #### 2777-1, , ####[facility] LABCLIA [id number] [facility] MARY ELLENNORTHWEST [place]DR[place] [address]IQK [Catalytic activity/Vol]27 U/LNormal7-38[facility] on above:Order Comment: Specimen Type: BLOOD SPECIMENOrdering Facility: [facility] Address:[address] [place], [place] [address]Performed By: #### 2777-1, , ####[facility] LABCLIA [id number] [place], [place] [address]Tcexw gap [Moles/Vol]11 mmol/LNormal8-15[facility] on above:Order Comment: Specimen Type: BLOOD SPECIMENOrdering Facility: [facility] Address:[address] [place] [address] Performed By: #### 2777-1, , ####[facility] LABCLIA [id number] [place], [place] [address]UOC [Catalytic activity/Vol]39 U/HCnqc38-40NbxdxubyjUniversity Hospitals Health System on above:Order Comment: Specimen Type: BLOOD SPECIMENOrdering Facility: [facility] Address:[address] [place], [place] [address]Performed By: #### 2777- 1, , ####[facility] LABCLIA [id number] [place], [place] [address]Hucozvqaz [Mass/Vol]0.4 mg/dLNormal0.2-1.3 [facility] on above:Order Comment: Specimen Type: BLOOD SPECIMENOrdering Facility: [facility] Address:[address] [place], [place] [address]Performed By: #### 2777-1, , ####[facility] LABCLIA [id number] [place], [place] [address]Ltqnhzd [Mass/Vol]9.2 mg/dLNormal8.5-10.2CHolmes [facility] on above:Order Comment: Specimen Type: BLOOD SPECIMENOrdering Facility: [facility] Address:[address] [place] [address] Performed By: #### 2777-1, , ####[facility] LABCLIA [id number] [place], [place] [address]Mpcyatbi [Moles/Vol]99 mmol/QIoyxpx47-380NdyejwyquKettering Health Springfieldment on above:Order Comment: Specimen Type: BLOOD SPECIMENOrdering Facility: [facility] Address:[address] [place], [place] [address]Performed By: #### 2777- 1, , ####[facility] LABCLIA [id number] [place], [place] [address]IL9 [Moles/Vol]23 mmol/HForqmu96-82ZhrfggwsvUniversity Hospitals Health System on above:Order Comment: Specimen Type: BLOOD SPECIMENOrdering Facility: [facility] Address:[address] [place], [place] [address]Performed By: #### 2777-1, , ####[facility] LABCLIA [id number] [place], [place] [address]Ocpxkmwubh [Mass/Vol]0.61 mg/dLNormal0.58-0.96[facility] Comment on above:Order Comment: Specimen Type: BLOOD SPECIMENOrdering Facility: [facility] Address:[address] [place] [address] Performed By: #### 2777-1, , ####[facility] LABCLIA [id number] [place], [place] [address]tVNDtz SerPlBld CKD-EPI 9662153 mL/min/1.73m???Normal>=60[facility] on above:Order Comment: Specimen Type: BLOOD SPECIMENOrdering Facility: [facility] Address:[address] [place], [place] [address]Zypsgp Comment: Estimated Glomerular Filtration Rate (eGFR) is calculated using the 2020 CKD-EPI creatinine equation. This equation utilizes serum creatinine, sex, and age as parameters. The creatinine assay has traceable calibration to isotope dilution- mass spectrometry. Refer to KDIGO guidelines for clinical interpretation. In patients with unstable renal function, e.g. those with acute kidney injury, the eGFR may not accurately reflect actual GFR.Performed By: #### 2777-1, , ####[facility] LABCLIA [id number] [place], [place] [address]Xcivkws [Mass/Vol]104 mg/lNDjjh77-31IrzrhqtcuUniversity Hospitals Health System on above:Order Comment: Specimen Type: BLOOD SPECIMENOrdering Facility: [facility] Address:[address] [place], [place] [address]Result Comment: The [place] Diabetes Association (ADA) provides guidance for cutoff values for fasting glucose and random glucose. The ADA defines fasting as no caloric intake for at least 8 hours. Fasting plasma glucose results between 100 to 125 mg/dL indicate increased risk for diabetes (prediab etes).Fasting plasma glucose results greater than or equal to 126 mg/dL meet the criteria for diagnosis of diabetes. In the absence of unequivocal hyperglycemia, results should be confirmed by repeattesting. In a patient with classic symptoms of hyperglycemia or hyperglycemic crisis, random plasmaglucose results greater than or equal to 200 mg/dL meet the criteria for diagnosis of diabetes.Reference: Standards of Medical Care in Diabetes 2016, [place] Diabetes Association. Diabetes Care. 2016.39(Suppl 1).Performed By: #### 2777-1, , ####[facility] LABCLIA [id number] [place], [place] [address]Mxuihedwn [Moles/Vol]4.1 mmol/LNormal3.7-5.1 [facility] on above:Order Comment: Specimen Type: BLOOD SPECIMENOrdering Facility: [facility] Address:[address] [place] [address]Dswwgukqy By: #### 2777-1, , ####[facility] LABCLIA [id number] [place], [place] [address]Jyktlpk [Mass/Vol]7.4 g/dLNormal6.3-8.0[facility] on above:Order Comment: Specimen Type: BLOOD SPECIMENOrdering Facility: [facility] Address:[address] [place], [place] [address]Performed By: #### 2777-1, , ####[facility] LABCLIA [id number] [place], [place] [address]Gieupw [Moles/Vol]133 mmol/L Ryp669-310AavysdeiuUniversity Hospitals Health System on above:Order Comment: Specimen Type: BLOOD SPECIMENOrdering Facility: [facility] Address:[address] [place], [place] [address]Performed By: #### 2777-1, , ####[facility] LABCLIA [id number] [place], [place] [address]Ebdh nitrogen [Mass/Vol]15 mg/dLNormal7-21[facility] on above:Order Comment: Specimen Type: BLOOD SPECIMENOrdering Facility: [facility] Address:[address] [place], [place] [address]Performed By: #### 2777-1, , ####[facility] LABCLIA [id number] [place], [place] [address]YKRWMDLABeu 97-96-2632Zqdtczyxm [Mass/Vol]1.9 mg/dL1.7 - 2.3 mg/dLUniversity Hospitals Geneva Medical CenterMagnesium SerPl-mCncon 01-66-1366Yuarxjqyn [Mass/Vol]1.9 mg/dLNormal 1.7-2.3CHolmes [facility] on above:Order Comment: Specimen Type: BLOOD SPECIMENOrdering Facility: [facility] Address:[address] [place] [address]Muitdwrzw By: #### 2777-1, 57649-4, 12504-7 ####[facility] LABCLIA [id number] [place], [place] [address]Hxoskkike [Mass/Vol]on 34-04-7727Dyzvmqmcejkyuu and review of laboratory resultsNormalCOhioHealth Arthur G.H. Bing, MD, Cancer CenterPHOSPHORUS INORGANICon 86-95-4898Qxzkscutp [Mass/Vol]4.1 mg/dL2.7 - 4.8 mg/dLUniversity Hospitals Geneva Medical CenterPhosphate SerPl-mCncon 66-96-8905Kksctmjah [Mass/Vol]4.1 mg/dLNormal 2.7-4.8CHolmes [facility] on above:Order Comment: Specimen Type: BLOOD SPECIMENOrdering Facility: [facility] Address:[address] [place], [place] [address]Performed By: #### 2777-1, 41402-1, 74527-6 ####[facility] LABCLIA [id number] [place], [place] [address]Vaaddmuuw [Mass/Vol]on 44-67-1289Gmcutmiwgxxiqo and review of laboratory resultsNormalCOhioHealth Arthur G.H. Bing, MD, Cancer CenterCNPNon 13-77-0688NRSFIjqrqoMbhoostbk Clinic ClevelandCASE MANAGEMon 97-48-8579FECJ MANAGEMNormalWood County HospitalCB panel Auto (Bld)on 02-23-2025 Erythrocyte distribution width (RBC) [Ratio]13.2 %Nlrtlf81.5-15.0[facility] on above:Order Comment: Specimen Type: BLOOD SPECIMENOrdering Facility: [facility] Address:[address] [place], [place] [address]Performed By: #### 67957-3 ####[facility] LABCLIA [id number] [place] [address] [place] OF AMERICAHematocrit (Bld) [Volume fraction]27.6 %Low36.0-46.0[facility] on above:Order Comment: Specimen Type: BLOOD SPECIMENOrdering Facility: [facility] Address:[address] [place], [place] [address]Performed By: #### 56206-0 ####[facility] LABIA [id number] [place] [address] [place] Hemoglobin (Bld) [Mass/Vol]9.3 g/dLLow11.5-15.5CHolmes [facility] on above:Order Comment: Specimen Type: BLOOD SPECIMENOrdering Facility: [facility] Address:[address] [place] [address] Performed By: #### 49557-8 ####[facility] LABIA [id number] [place] [address] [place] MCH (RBC) [Entitic mass]30.1 noAofpen51.0-34.0[facility] on above:Order Comment: Specimen Type: BLOOD SPECIMENOrdering Facility: [facility] Address:[address] [place] [address] Performed By: #### 44521-9 ####[facility] [id number] [place] [address] [place] MCHC (RBC) [Mass/Vol]33.7 g/fNQfmpyd41.5-36.0[facility] on above:Order Comment: Specimen Type: BLOOD SPECIMENOrdering Facility: [facility] Address:[address] [place] [address] Performed By: #### 72815-7 ####[facility] LABIA [id number] [place] [address] [place] MCV (RBC) [Entitic vol]89.3 eLYucwsa76.0-100.0[facility] on above:Order Comment: Specimen Type: BLOOD SPECIMENOrdering Facility: [facility] Address:[address] [place] [address] Performed By: #### 12834-6 ####[facility] LABIA [id number] [place] [address] [place] Nucleated RBC (Bld) [#/Vol]10*3/uLNormal<0.01[facility] on above:Order Comment: Specimen Type: BLOOD SPECIMENOrdering Facility: [facility] Address:[address] [place] [address] Performed By: #### [id number] ####[facility] [id number] [place] [address] [place] Platelet mean volume (Bld) [Entitic vol]10.5 fLNormal9.0-12.7CHol[facility] on above:Order Comment: Specimen Type: BLOOD SPECIMENOrdering Facility: [facility] Address:[address] [place], [place] [address]Performed By: #### [id number] ####[facility] [id number] [place] [address] [place] Platelets (Bld) [#/Vol]268 10*3/lTApsgdp924-402IrrhbicybUniversity Hospitals Health System on above:Order Comment: Specimen Type: BLOOD SPECIMENOrdering Facility: [facility] Address:[address] [place] [address] Performed By: #### 31468-0 ####[facility]OSPITALIA [id number] [place] [address] [place] RBC (Bld) [#/Vol]3.09 10*6/uLLow3.90-5.20[facility] on above:Order Comment: Specimen Type: BLOOD SPECIMENOrdering Facility: [facility] Address:[address] [place], [place] [address]Performed By: #### 00234-3 ####[facility] [id number] [place] [address] [place] AMERICAWBC (Bld) [#/Vol]6.34 10*3/uLNormal3.70-11.00[facility] on above:Order Comment: Specimen Type: BLOOD SPECIMENOrdering Facility: [facility] Address:[address] [place], [place] [address]Performed By: #### 20654-1 ####[facility] LABCLIA [id number] [place] [id number] [place] OF AMERICACNDSon 55-85-0037BRVCIukoun Wood County HospitalCONSULT PROGon 62-01-2690CNATPFI PROGNormalWood County HospitalCRP SerPl-mCncon 72-32-2713ZJX [Mass/Vol]7.0 mg/dLHigh<0.9 [facility] on above:Order Comment: Specimen Type: BLOOD SPECIMENOrdering Facility: [facility] Address:[address] [place], [place] [address]Performed By: #### 1987-11, ####[facility] LABCLIA [id number] [place] [id number] [place] AMERICARenal function 2000 panelon 85-80-3628Raftfyy [Mass/Vol]3.1 g/dLLow3.9-4.9CHolmes [facility] on above:Order Comment: Specimen Type: BLOOD SPECIMENOrdering Facility: [facility] Address:[address] [place], [place] [address]Performed By: #### 1987-11, ####[facility] LABCLIA [id number] [place] [id number] [place] AMERICAAnion gap [Moles/Vol]14 mmol/LNormal8-15[facility] on above:Order Comment: Specimen Type: BLOOD SPECIMENOrdering Facility: [facility] Address:[address] [place], [place] [address]Performed By: #### 1987-11, ####[facility] LABCLIA [id number] [facility]INICD AVENUECOMMUNITY HOSPITAL OF THE MONTEREY PENINSULAK [id number] [place] [address] [place] AMERICACalcium [Mass/Vol]9.0 mg/dLNormal8.5-10.2CHolmes [facility] on above:Order Comment: Specimen Type: BLOOD SPECIMENOrdering Facility: [facility] Address:[address] [place], [place] [address]Performed By: #### 1987-11, ####[facility] LABCLIA [id number] [facility] CLINICD AVENUECOMMUNITY HOSPITAL OF THE MONTEREY PENINSULAK [place] [id number] [place] OF AMERICAChloride [Moles/Vol]101 mmol/OBbqatd31-243HbjoqweqpWood County Hospital Comment on above:Order Comment: Specimen Type: BLOOD SPECIMENOrdering Facility: [facility] Address:[address] [place] [address] Performed By: #### 1987-11, ####[facility] LABCLIA [id number] [facility] [place] [id number] [place] CO2 [Moles/Vol]22 mmol/PLbddad38-04EtufcopptUniversity Hospitals Health System on above: Order Comment: Specimen Type: BLOOD SPECIMENOrdering Facility: [facility] Address:[address] [place], [place] [address]Performed By: #### , ####[facility] LABCLIA [id number] [facility] ENUEDESK [place] [address] [place] AMERICACreatinine [Mass/Vol] 0.38 mg/dLLow0.58-0.96[facility] on above:Order Comment: Specimen Type: BLOOD SPECIMENOrdering Facility: [facility] Address:[address] [place], [place] [address]Performed By: #### 1987-11, ####[facility] LABCLIA [id number] [facility]ITALK [address] [address] [place] AMERICAeGFRcr SerPlBld CKD-EPI [id number] mL/min/1.73m???Normal>=60[facility] on above:Order Comment: Specimen Type: BLOOD SPECIMENOrdering Facility: [facility] Address:[address] [place], [place] [address]Result Comment: Estimated Glomerular Filtration Rate (eGFR) is calculated using the 2020 CKD-EPI cre atinine equation. This equation utilizes serum creatinine, sex, and age as parameters. The creatinine assay has traceable calibration to isotope dilution- mass spectrometry. Refer to KDIGO guidelines for clinical interpretation. In patients with unstable renal function, e.g. those with acute kidney injury, the eGFR may not accurately reflect actual GFR.Performed By: #### 1987-, 03947-5 ####[facility] LABCLIA [id number] [place] [address] [place] AMERICAGlucose [Mass/Vol]114 mg/dLHigh 74-99[facility] on above:Order Comment: Specimen Type: BLOOD SPECIMENOrdering Facility: [facility] Address:[address] [facility] CLINICHaleigh [place], [place] [address]Result Comment: The [place] Diabetes Association (ADA) provides guidance for cutoff [...] unequivocal hyperglycemia, results should be confirmed by repeattesting. In a patient with classic symptoms of hyperglycemia or hyperglycemic crisis, random plasmaglucose results greater than or equal to 200 mg/dL meet the criteria for diagnosis of diabetes.Reference: Standards of Medical Care in Diabetes 2016, [place] Diabetes Association. Diabetes Care. 2016.39(Suppl 1).Performed By: #### 1987-, 68954-6 ####[facility] LABCLIA [id number] [facility] [address] [place] AMERICAPhosphate [Mass/Vol]4.2 mg/dLNormal2.7-4.8CHolmes [facility] on above:Order Comment: Specimen Type: BLOOD SPECIMENOrdering Facility: [facility] Address:[address] [place], [place] [address]Performed By: #### 1987-11, ####[facility] LABCLIA [id number] [place] [address] [place] AMERICAPotassium [Moles/Vol]4.4 mmol/L Normal3.7-5.1CHolmes [facility] on above:Order Comment: Specimen Type: BLOOD SPECIMENOrdering Facility: [facility] Address:[address] [place], [place] [address]Performed By: #### 1987-11, ####[facility] [id number] [place] [address] [place] OF [facility] VAL[facility] HOSPITALSodium [Moles/Vol]137 mmol/AGdieth435-390AojqptvyyUniversity Hospitals Health System on above:Order Comment: Specimen Type: BLOOD SPECIMENOrdering Facility: [facility] Address:[address] [place], [place] [address]Performed By: #### 1987-11, ####[facility] [id number] [place] [address] [place] AMERICAUrea nitrogen [Mass/Vol]16 mg/dLNormal-[facility] on above:Order Comment: Specimen Type: BLOOD SPECIMENOrdering Facility: [facility] Address:[address] [place], [place] [address]Performed By: #### 1987-11, ####[facility] [id number] [place] [address] [place] AMERICACASE MANAGEMon 50-36-2689FTFA MANAGEMNormalThe [facility] panel Auto (Bld)on 50-71-8709Tycvtchbpor distribution width (RBC) [Ratio]13.2 % Xmxjih21.5-15.0[facility] on above:Order Comment: Specimen Type: BLOOD SPECIMENOrdering Facility: [facility] Address:[address] [place], [place] [address]Performed By: #### 74736-0 ####[facility] LABCLIA [id number] [address] K[address] STREETHematocrit (Bld) [Volume fraction]26.5 %Low36.0-46.0[facility] on above:Order Comment: Specimen Type: BLOOD SPECIMENOrdering Facility: [facility] Address:[address] [place], [place] [address]Performed By: #### 91327- 2 ####[facility] LABIA [id number] [address] OF [facility] VALLEY HOSPITALHemoglobin (Bld) [Mass/Vol]8.6 g/dLLow11.5-15.5CHolmes [facility] on above:Order Comment: Specimen Type: BLOOD SPECIMENOrdering Facility: [facility] Address:[address] [place], [place] [address]Performed By: #### 27409-6 ####[facility] LABIA [id number] [address]ETMCH (RBC) [Entitic mass]29.8 pg Rpjdku82.0-34.0[facility] on above:Order Comment: Specimen Type: BLOOD SPECIMENOrdering Facility: [facility] Address:[address] [place], [place] [address]Performed By: #### 29904-9 ####[facility] [id number] [address] (RBC) [Mass/Vol]32.5 g/dL Dozwhs25.5-36.0[facility] on above:Order Comment: Specimen Type: BLOOD SPECIMENOrdering Facility: [facility] Address:[address] [place], [place] [address]Performed By: #### 75258-4 ####[facility]BRIGHTL[facility] [id number] [place] [address] [place] [facility] VALLEY HOSPITALMCV (RBC) [Entitic vol]91.7 fL Jvkdyo89.0-100.0[facility] on above:Order Comment: Specimen Type: BLOOD SPECIMENOrdering Facility: [facility] Address:[address] [place], [place] [address]Performed By: #### 35446-9 ####[facility] [id number] [address]ucleated RBC (Bld) [#/Vol] 10*3/uLNormal<0.01[facility] on above:Order Comment: Specimen Type: BLOOD SPECIMENOrdering Facility: [facility] Address:[address] [place], [place] [address]Performed By: #### 47110-2 ####[facility] [id number] [address] OF AMERICAPlatelet mean volume (Bld) [Entitic vol]10.6 fLNormal9.0-12.7CHolmes [facility] on above: Order Comment: Specimen Type: BLOOD SPECIMENOrdering Facility: [facility] Address:[address] [place], [place] [address]Performed By: #### 97230- 2 ####[facility] LABBRIGHTLOOK [facility]PITAL [id number] [place] [address] [place] AMERICAPlatelets (Bld) [#/Vol]228 10*3/eZSkvjyx860-499SvqhmmbesUniversity Hospitals Health System on above:Order Comment: Specimen Type: BLOOD SPECIMENOrdering Facility: [facility] Address:[address] [place], [place] [address]Performed By: #### 52139-0 ####[facility] [id number] [place] [address] [place] AMERICARBC (Bld) [#/Vol]2.89 10*6/uLLow 3.90-5.20[facility] on above:Order Comment: Specimen Type: BLOOD SPECIMENOrdering Facility: [facility] Address:[address] [place], [place] [address]Performed By: #### 47056-4 ####[facility] LABCLIA [id number] [place] [address] [place] AMERICAWBC (Bld) [#/Vol]6.35 10*3/uLNormal3.70-11.00[facility] on above:Order Comment: Specimen Type: BLOOD SPECIMENOrdering Facility: [facility] Address:[address] [place], [place] [address]Performed By: #### 39783-6 ####[facility] LABCLIA [id number] [place] [address] [place] AMERICACNPNon 18-36-4720QMKZDvrijrOpsavntlb Clinic ClevelandCONSULT PROGon 46-33-7900VNBSWGD PROGNormalWood County HospitalCRP SerPl-mCncon 86-90-4632QMJ [Mass/Vol]10.3 mg/dLHigh<0.9CHolmes [facility] on above:Order Comment: Specimen Type: BLOOD SPECIMENOrdering Facility: [facility] Address:[address] [place], [place] [address]Performed By: #### 1987-11, , ####[facility] LABCLIA [id number] [place] [id number] [place] Magnesium SerPl-mCncon 02-67-6071Kekspteor [Mass/Vol]2.1 mg/dLNormal1.7-2.3 [facility] on above:Order Comment: Specimen Type: BLOOD SPECIMENOrdering Facility: [facility] Address:[address] [place], [place] [address]Performed By: #### 1987-11, , ####[facility] LABCLIA [id number] [address] [place] AMERICANURSING PROGon 35-56-3316WEBAETU PROGNormal [facility] HospitalvelandNUTRITIONon 28-21-7934YQUSPFTVOOldwrwSsssdjlfu Adventhealth HendersonvillePT EDon 28-09-8076UZ EDNormalCCorey Hospital ClevelandRenal function 2000 panelon 30-17-3244Jvsfrvo [Mass/Vol]3.3 g/dLLow3.9-4.9ClevelWayne HealthCare Main Campus on above:Order Comment: Specimen Type: BLOOD SPECIMENOrdering Facility: [facility] Address:[address] [place], [place] [address]Performed By: #### 1987-11, , ####[facility] [id number] VILLE [id number] [place] AMERICAAnion gap [Moles/Vol]12 mmol/LNormal8-15[facility] on above:Order Comment: Specimen Type: BLOOD SPECIMENOrdering Facility: [facility] Address:[address] [place], [place] [address]Performed By: #### 1987-11, , ####[facility] [id number] VILLE [address] [place] AMERICACalcium [Mass/Vol]8.9 mg/dLNormal8.5-10.2ClevelWayne HealthCare Main Campus on above:Order Comment: Specimen Type: BLOOD SPECIMENOrdering Facility: [facility] Address:[address] [place], [place] [id number] By: #### 1987-11, , ####[facility] [id number] VILLE [address] [place] AMERICAChloride [Moles/Vol]103 mmol/SPwqsqq66-752SfuyqcjzvUniversity Hospitals Health System on above:Order Comment: Specimen Type: BLOOD SPECIMENOrdering Facility: [facility] Address:[address] [place], [place] [id number] By: #### 1987-11, , ####[facility] [id number] VILLE [address] [place] AMERICACO2 [Moles/Vol]25 mmol/SDvcmfc89-93UnrwecgyyWood County Hospital Comment on above:Order Comment: Specimen Type: BLOOD SPECIMENOrdering Facility: [facility] Address:[address] [place] [address] Performed By: #### 1987-11, , ####[facility] [id number] VILLE [id number] [place] AMERICACreatinine [Mass/Vol]0.39 mg/dLLow0.58-0.96[facility] Comment on above:Order Comment: Specimen Type: BLOOD SPECIMENOrdering Facility: [facility] Address:[address] [place] [address] Performed By: #### 1987-11, , ####[facility] [id number] VILLE [id number] [place] AMERICAeGFRcr SerPlBld CKD-EPI 4576462 mL/min/1.73m???Normal>=60Wood County HospitalComment on above:Order Comment: Specimen Type: BLOOD SPECIMENOrdering Facility: [facility] Address:[address] [place], [place] [address]Result Comment: Estimated Glomerular Filtration Rate (eGFR) is calculated using the 2020 CKD-EPI creatinine equation. This equation utilizes serum creatinine, sex, and age as parameters. The creatinine assay has traceable calibration to isotope dilution-mass spectrometry. Refer to KDIGO guidelines for clinical interpretation. In patients with unstable renal function, e.g. those with acute kidney injury, the eGFR may not accurately reflect actual GFR. Performed By: #### 1987-11, , ####[facility] LABBRIGHTLOOK [facility] [id number] AVENUEDESK [id number] [place], [place] [address] [place] AMERICAGlucose [Mass/Vol]105 mg/pWApax28-81FchgmkqvyUniversity Hospitals Health System on above:Order Comment: Specimen Type: BLOOD SPECIMENOrdering Facility: [facility] Address:[address] [place], [place] [address]Result Comment: The [place] Diabetes Association (ADA) provides guidance for cutoff [...] unequivocal hyperglycemia, results should be confirmed by repeattesting. In a patient with classic symptoms of hyperglycemia or hyperglycemic crisis, random plasmaglucose results greater than or equal to 200 mg/dL meet the criteria for diagnosis of diabetes.Reference: Standards of Medical Care in Diabetes 2016, [place] Diabetes Association. Diabetes Care. 2016.39(Suppl 1).Performed By: #### 1987-11, , ####[facility] LABBRIGHTLOOK [facility] [id number] VILLE [id number] [place] AMERICAPhosphate [Mass/Vol]4.9 mg/dLHigh2.7-4.8CHolmes [facility] on above:Order Comment: Specimen Type: BLOOD SPECIMENOrdering Facility: [facility] Address:[address] [place], [place] [phone] By: #### 1987-11, , ####[facility] LABBRIGHTLOOK [facility] [id number] VILLE [address] [place] AMERICAPotassium [Moles/Vol]4.3 mmol/LNormal3.7-5.1 [facility] on above:Order Comment: Specimen Type: BLOOD SPECIMENOrdering Facility: [facility] Address:[address] [place], [place] [address]Performed By: #### 1987-11, , ####[facility] LABCLIA [id number] [address] [place] AMERICASodium [Moles/Vol]140 mmol/OVaoego936-971SvfxwnpetUniversity Hospitals Health System on above:Order Comment: Specimen Type: BLOOD SPECIMENOrdering Facility: [facility] Address:[address] [place], [place] [address]Performed By: #### 1987-11, , 73768-6 ####[facility] LABCLIA [id number] [address] [place] AMERICAUrea nitrogen [Mass/Vol]13 mg/dLNormal7- [facility] on above:Order Comment: Specimen Type: BLOOD SPECIMENOrdering Facility: [facility] Address:[address] [place], [place] [address]Performed By: #### 1987-11, , 32383-1 ####[facility] [id number] [address] [place] AMERICATHERAPY NTon 96-87-8883VNIZVHD NTNormalCMercy Health Urbana HospitalCASE MANAGEMon 46-80-8215WMEK MANAGEMNormalWood County HospitalCB panel Auto (Bld)on 84-59-0770Kgyvsltdfcr distribution width (RBC) [Ratio]13.2 %Shwmys84.5-15.0[facility] on above:Order Comment: Specimen Type: BLOOD SPECIMENOrdering Facility: [facility] Address:[address] [place], [place] [address]Performed By: #### 64763- 2 ####[facility] [id number] [place] [id number] [place] AMERICAHematocrit (Bld) [Volume fraction]25.1 %Low36.0-46.0[facility] on above:Order Comment: Specimen Type: BLOOD SPECIMENOrdering Facility: [facility] Address:[address] [place], [place] [address]Performed By: #### 13066- 2 ####[facility] [id number] [address] ST[address]ETHemoglobin (Bld) [Mass/Vol]8.1 g/dLLow11.5-15.5CHolmes [facility] on above:Order Comment: Specimen Type: BLOOD SPECIMENOrdering Facility: [facility] Address:[address] [place], [place] [address]Performed By: #### 62446-2 ####[facility] [id number] [address] (RBC) [Entitic mass]31.0 pg Bkpuag68.0-34.0[facility] on above:Order Comment: Specimen Type: BLOOD SPECIMENOrdering Facility: [facility] Address:[address] [place], [place] [address]Performed By: #### 33046-6 ####[facility] [id number] [address]ETMCHC (RBC) [Mass/Vol]32.3 g/dL Bxhfnd44.5-36.0[facility] on above:Order Comment: Specimen Type: BLOOD SPECIMENOrdering Facility: [facility] Address:[address] [place], [place] [address]Performed By: #### 28988-1 ####[facility] [id number] [address] (RBC) [Entitic vol]96.2 fL Cdmqwd04.0-100.0[facility] on above:Order Comment: Specimen Type: BLOOD SPECIMENOrdering Facility: [facility] Address:[address] [place], [place] [address]Performed By: #### 51501-6 ####[facility] [id number] [place] [address] [place] AMERICANucleated RBC (Bld) [#/Vol] 10*3/uLNormal<0.01[facility] on above:Order Comment: Specimen Type: BLOOD SPECIMENOrdering Facility: [facility] Address:[address] [place], [place] [address]Performed By: #### 35678-1 ####[facility] LABCL[facility] [id number] [place] [address] [place] AMERICAPlatelet mean volume (Bld) [Entitic vol]12.1 fLNormal9.0-12.7CHolmes [facility] on above: Order Comment: Specimen Type: BLOOD SPECIMENOrdering Facility: [facility] Address:[address] [place], [place] [address]Performed By: #### 26858- 2 ####[facility] LABCL[facility] [id number] [place] [address] [place] AMERICAPlatelets (Bld) [#/Vol]197 10*3/sDGvvqpn402-530EmvzomnecUniversity Hospitals Health System on above:Order Comment: Specimen Type: BLOOD SPECIMENOrdering Facility: [facility] Address:[address] [place], [place] [address]Performed By: #### 18377-9 ####[facility]CL[facility] [id number] [place] [address] [place] AMERICARBC (Bld) [#/Vol]2.61 10*6/uLLow 3.90-5.20[facility] on above:Order Comment: Specimen Type: BLOOD SPECIMENOrdering Facility: [facility] Address:[address] [place], [place] [address]Performed By: #### 78669-3 ####[facility]CL[facility] [id number] [place] [address] [place] AMERICAWBC (Bld) [#/Vol]6.61 10*3/uLNormal3.70-11.00[facility] on above:Order Comment: Specimen Type: BLOOD SPECIMENOrdering Facility: [facility] Address:[address] [place], [place] [address]Performed By: #### 86341-3 ####[facility] LABCL[facility] [id number] [facility]INICD [facility]ITALK [id number] [place] [address] [place] AMERICACR SerPl-mCnc 40-86-4882MKE [Mass/Vol]9.4 mg/dLHigh<0.9ClevelWayne HealthCare Main [facility] on above:Order Comment: Specimen Type: BLOOD SPECIMENOrdering Facility: [facility] Address:[address] [place], [place] [address]Performed By: #### 1988-5, 50932-4, 47031-2 ####[facility] LABCL[facility] [id number] [address] [place] AMERICAComprehensive metabolic 2000 panelon 02-21-2025 Albumin [Mass/Vol]3.0 g/dLLow3.9-4.9ClevelWayne HealthCare Main [facility] on above: Order Comment: Specimen Type: BLOOD SPECIMENOrdering Facility: [facility] Address:[address] [place], [place] [address]Performed By: #### 24761- 8, 2777-1 ####[facility] LABCLIA [id number] [facility]DERB[facility] MEDICAL CENTERLID AV ENWASHINGTON [place] [address] [place] AMERICAALP [Catalytic activity/Vol]137 U/UXgnh51-724ClsnfokbqUniversity Hospitals Health System on above:Order Comment: Specimen Type: BLOOD SPECIMENOrdering Facility: [facility] Address:[address] [place], [place] [address]Performed By: #### 86779- 8, 2777-1 ####[facility] LABCL[facility] [id number] [facility] THUNDERBIRD MEDICAL CENTERLID AV ENUEDESK [id number] [place], [place] [address] [place] AMERICAALT [Catalytic activity/Vol]15 U/LNormal7-38[facility] on above:Order Comment: Specimen Type: BLOOD SPECIMENOrdering Facility: [facility] Address:[address] [place], [place] [address]Performed By: #### 13408- 8, 277- ####[facility] LABCLIA [id number] [facility] CLINICHaleigh [place]YPAXV[place], [place] [address] [place] AMERICAAnion gap [Moles/Vol]11 mmol/LNormal8-15[facility] on above:Order Comment: Specimen Type: BLOOD SPECIMENOrdering Facility: [facility] Address:[address] [place], [place] [address]Performed By: #### 27077-3, 277- ####[facility] LABCL[facility] [id number] [address] [address] [place] AMERICAAST [Catalytic activity/Vol]14 U/SCvzgzq11-09VnwsbyrdpUniversity Hospitals Health System on above:Order Comment: Specimen Type: BLOOD SPECIMENOrdering Facility: [facility] Address:[address] [place], [place] [address]Performed By: #### 26241-3, 2776- ####[facility] LABCLIA [id number] [address], [facility]95 [place] OF AMERICABilirubin [Mass/Vol]0.5 mg/dLNormal0.2-1.3 [facility] on above:Order Comment: Specimen Type: BLOOD SPECIMENOrdering Facility: [facility] Address:[address] [place], [place] [id number] By: #### 75635-9, 2776- ####[facility] LABCLIA [id number] [facility] [address] [address] [place] OF AMERICACalcium [Mass/Vol]8.3 mg/dLLow8.5-10.2CHolmes [facility] on above:Order Comment: Specimen Type: BLOOD SPECIMENOrdering Facility: [facility] Address:[address] [place], [place] [address]Performed By: #### 69709-7, 277- ####[facility] LABCLIA [id number] [facility]INICD AVENUECOMMUNITY HOSPITAL OF THE MONTEREY PENINSULAK [id number] [place], [place] [address] [place] OF AMERICAChloride [Moles/Vol]103 mmol/CRehzup52-589CpmuedelqWood County Hospital Comment on above:Order Comment: Specimen Type: BLOOD SPECIMENOrdering Facility: [facility] Address:[address] [place] [address] Performed By: #### 36596-5, 2776- ####[facility] LABIA [id number] [facility] [place] [address] [place] CO2 [Moles/Vol]23 mmol/AFvummb49-76TrftpmjbhWood County HospitalComment on above: Order Comment: Specimen Type: BLOOD SPECIMENOrdering Facility: [facility] Address:[address] [place], [place] [address]Performed By: #### 04264- 8, 2776-07 ####[facility] LABIA [id number] [facility]UEDES[address], [place] [address] [place] AMERICACreatinine [Mass/Vol] 0.35 mg/dLLow0.58-0.96Wood County HospitalComment on above:Order Comment: Specimen Type: BLOOD SPECIMENOrdering Facility: [facility] Address:[address] [place], [place] [address]Performed By: #### 53557-8, 27701-02 ####[facility] LABIA [id number] [place] AVENUECOMMUNITY HOSPITAL OF THE MONTEREY PENINSULAK [place] [address] [place] OF AMERICAeGFRcr SerPlBld CKD-EPI 1893474 mL/min/1.73m???Normal>=60[facility] HospitalComup health system on above:Order Comment: Specimen Type: BLOOD SPECIMENOrdering Facility: [facility] Address:[address] [place], [place] [phone] Comment: Estimated Glomerular Filtration Rate (eGFR) is calculated using the 2020 CKD-EPI cre atinine equation. This equation utilizes serum creatinine, sex, and age as parameters. The creatinine assay has traceable calibration to isotope dilution- mass spectrometry. Refer to KDIGO guidelines for clinical interpretation. In patients with unstable renal function, e.g. those with acute kidney injury, the eGFR may not accurately reflect actual GFR.Performed By: #### 07297-7, 2776-07 ####[facility] LABCLIA [id number] [facility] CLINICD AVENUEDESK [id number] [place] [address] [place] AMERICAGlucose [Mass/Vol]118 mg/dLHigh 74-99[facility] on above:Order Comment: Specimen Type: BLOOD SPECIMENOrdering Facility: [facility] Address:[address] [place] [id number] Comment: The [place] Diabetes Association (ADA) provides guidance for cutoff [...] unequivocal hyperglycemia, results should be confirmed by repeattesting. In a patient with classic symptoms of hyperglycemia or hyperglycemic crisis, random plasmaglucose results greater than or equal to 200 mg/dL meet the criteria for diagnosis of diabetes.Reference: Standards of Medical Care in Diabetes 2016, [place] Diabetes Association. Diabetes Care. 2016.39(Suppl 1).Performed By: #### 94717- 8, 2776-07 ####[facility] LABCLIA [id number] [facility]DER[facility] MED[facility] CENTERLID AV ENUEDESK [id number] [place], [place] [address] [place] AMERICAPotassium [Moles/Vol]4.1 mmol/LNormal3.7-5.1CHolmes [facility] on above:Order Comment: Specimen Type: BLOOD SPECIMENOrdering Facility: [facility] Address:[address] [facility] CLINICHaleigh ARENASAARON VIL[place] [id number] By: #### 57151-5, 2776-07 ####[facility] LABCLIA [id number] [facility]UNDER[facility] MED[facility] CENTERLID AVENUEDESK [address] [address] [place] AMERICAProtein [Mass/Vol]5.8 g/dLLow 6.3-8.0[facility] on above:Order Comment: Specimen Type: BLOOD SPECIMENOrdering Facility: [facility] Address:[address] [place], [place] [address]Performed By: #### 27932-9, 2777-1 ####[facility] LABCLIA [id number] [place] [address] [place] AMERICASodium [Moles/Vol]137 mmol/EFjmefo274-867PpesgmdfbUniversity Hospitals Health System on above:Order Comment: Specimen Type: BLOOD SPECIMENOrdering Facility: [facility] Address:[address] [place], [place] [address]Performed By: #### 46251-4, 2777- ####[facility] LABIA [id number] [place] [address] [place] AMERICAUrea nitrogen [Mass/Vol]15 mg/dLNormal7-21[facility] on above:Order Comment: Specimen Type: BLOOD SPECIMENOrdering Facility: [facility] Address:[address] [place], [place] [address]Performed By: #### 08439-7, 2777-1 ####[facility] LABIA [id number] [place] [address] [place] AMERICAMagnesium SerPl-mCncon 81-80-8010Obrfopbmp [Mass/Vol]2.6 mg/dLHigh1.7-2.3 [facility] on above:Order Comment: Specimen Type: BLOOD SPECIMENOrdering Facility: [facility] Address:[address] [place], [place] [phone] By: #### 1988-5, 98998-9, 64296-6 ####[facility] LABCLIA [id number] [address], [facility]95 [place] OF AMERICANURSING PROGon 61-22-2820UHMNSZE PROGNormal Wood County HospitalNUTRITIONon 48-80-5252DRLNHCMCKToussyGwpnzsezr Clinic ClevelandPhosphate SerPl-mCncon 06-04-8849Shabfkrjm [Mass/Vol]4.1 mg/dLNormal 2.7-4.8CMercy Health Urbana HospitalComup health system on above:Order Comment: Specimen Type: BLOOD SPECIMENOrdering Facility: [facility] Address:[address] [place], [place] [address]Result Comment: Result rechecked.Performed By: #### 17194-2, 2777-1 ####[facility] LABCLIA [id number] [place] [address] [place] AMERICARenal function 2000 panelon 92-13-4364Xcxoige [Mass/Vol]2.7 g/dLLow3.9-4.9ClevelCentral Carolina Hospital Comment on above:Order Comment: Specimen Type: BLOOD SPECIMENOrdering Facility: [facility] Address:[address] [place] [address] Performed By: #### 1987-11, , 38325-4 ####[facility] LABCLIA [id number] VILLE [address] [place] AMERICAAnion gap [Moles/Vol]18 mmol/LHigh8-15[facility] on above:Order Comment: Specimen Type: BLOOD SPECIMENOrdering Facility: [facility] Address:[address] [place], [place] [address] Performed By: #### 1987-11, , 45432-2 ####[facility] LABCLIA [id number] [address] [place] AMERICACalcium [Mass/Vol]8.0 mg/dLLow8.5-10.2CMercy Health Urbana HospitalComup health system on above:Order Comment: Specimen Type: BLOOD SPECIMENOrdering Facility: [facility] Address:[address] [place], [place] [address] Performed By: #### 1987-11, , 78491-9 ####[facility] LABCLIA [id number] VILLE [address] [place] AMERICAChloride [Moles/Vol]98 mmol/AHkbiwk06-286OvcfcjdmeWood County Hospital Comment on above:Order Comment: Specimen Type: BLOOD SPECIMENOrdering Facility: [facility] Address:[address] [place], [place] [address] Performed By: #### 1987-11, , ####[facility]BR[facility] [id number] VILLE [address] [place] AMERICACO2 [Moles/Vol]18 mmol/YMxt15-33MxmcwaynvWood County HospitalComment on above:Order Comment: Specimen Type: BLOOD SPECIMENOrdering Facility: [facility] Address:[address] [place], [place] [address]Performed By: #### 1987-11, , ####[facility] [id number] VILLE [address] [place] Creatinine [Mass/Vol]0.42 mg/dLLow0.58-0.96[facility] County HospitalComment on above:Order Comment: Specimen Type: BLOOD SPECIMENOrdering Facility: [facility] Address:[address] [place], [place] [address]Performed By: #### 1987-11, , ####[facility] [id number] VILLE [address] [place] eGFRcr SerPlBld CKD-EPI 9921568 mL/min/1.73m???Normal>=60[facility] County HospitalComment on above:Order Comment: Specimen Type: BLOOD SPECIMENOrdering Facility: [facility] Address:[address] [place], [place] [address]Result Comment: Estimated Glomerular Filtration Rate (eGFR) is calculated using the 2020 CKD-EPI creatinine equation. This equation utilizes serum creatinine, sex, and age as parameters. The creatinine assay has traceable calibration to isotope dilution-mass spectrometry. Refer to KDIGO guidelines for clinical interpretation. In patients with unstable renal function, e.g. those with acute kidney injury, the eGFR may not accurately reflect actual GFR. Performed By: #### 1987-11, , ####[facility] LABCLIA [id number] [address] [place] AMERICAGlucose [Mass/Vol]559 mg/wBTmrn86-72ZujwvuhkeUniversity Hospitals Health System on above:Order Comment: Specimen Type: BLOOD SPECIMENOrdering Facility: [facility] Address:[address] [place], [place] [phone] Comment: The [place] Diabetes Association (ADA) provides guidance for cutoff [...] unequivocal hyperglycemia, results should be confirmed by repeattesting. In a patient with classic symptoms of hyperglycemia or hyperglycemic crisis, random plasmaglucose results greater than or equal to 200 mg/dL meet the criteria for diagnosis of diabetes.Reference: Standards of Medical Care in Diabetes 2016, [place] Diabetes Association. Diabetes Care. 2016.39(Suppl 1).Performed By: #### 1987-11, , ####[facility] LABCLIA [id number] [address] [place] AMERICAPhosphate [Mass/Vol]6.7 mg/dLHigh2.7-4.8CHolmes [facility] on above:Order Comment: Specimen Type: BLOOD SPECIMENOrdering Facility: [facility] Address:[address] [place], [place] [address]Qfcjlgffc By: #### 1987-11, , ####[facility] LABCL[facility] [id number] [address] [place] AMERICAPotassium [Moles/Vol]5.4 mmol/LHigh3.7-5.1 [facility] on above:Order Comment: Specimen Type: BLOOD SPECIMENOrdering Facility: [facility] Address:[address] [place] [address]Udbjafgkw By: #### 1987-11, , ####[facility] LABCL[facility] [id number] [address] [place] AMERICASodium [Moles/Vol]134 mmol/PSgt513-973EljjjxnshUniversity Hospitals Health System on above:Order Comment: Specimen Type: BLOOD SPECIMENOrdering Facility: [facility] Address:[address] [place] [address]Bvnfjesbj By: #### 1987-11, , ####[facility] LABCL[facility] [id number] VILLE [address] [place] AMERICAUrea nitrogen [Mass/Vol]12 mg/dLNormal7-21 [facility] on above:Order Comment: Specimen Type: BLOOD SPECIMENOrdering Facility: [facility] Address:[address] [place] [address]Irsmdttlg By: #### 1987-11, , ####[facility] LABIA [id number] VILLE [address] [place] OF AMERICATHERAPY NTon 48-38-5525GXYROTZ NTNormalCMercy Health Urbana Hospital25([place])D3 SerPl-mCncon 222544-eczsxkwgaoenma D3 [Mass/Vol] 31.2 ng/cOYfhftm89.0-80.0[facility] on above:Order Comment: Specimen Type: BLOOD SPECIMENOrdering Facility: [facility] Address:[address] [place] [address]Uhpmrn Comment: Classification of 25 [place] Vitamin D status:Deficiency/Insufficiency: < or = 30 ng/ml.Sufficiency/Optimal Levels: 31-80 ng/mLToxicity: > 100 ng/mL.Test performed by chemiluminescent immunoassay.Performed By: #### 1988-09 ####[facility] LABIA [id number] [address] STATES OF [facility] VALLEY HOSPITALCBC panel Auto (Bld)on 02-20-2025 Erythrocyte distribution width (RBC) [Ratio]13.1 %Dabsto43.5-15.0[facility] on above:Order Comment: Specimen Type: BLOOD SPECIMENOrdering Facility: [facility] Address:[address] [place], [place] [address]Performed By: #### 03500-4 ####[facility] HOSPITALIA [id number] [address] STATES OF [facility] VALLEY HOSPITALHematocrit (Bld) [Volume fraction]26.2 %Low36.0-46.0[facility] on above:Order Comment: Specimen Type: BLOOD SPECIMENOrdering Facility: [facility] Address:[address] [place], [place] [address]Performed By: #### 35625-9 ####[facility]PITALIA [id number] [address] [place] Hemoglobin (Bld) [Mass/Vol]8.7 g/dLLow11.5-15.5CHolmes [facility] on above:Order Comment: Specimen Type: BLOOD SPECIMENOrdering Facility: [facility] Address:[address] [place] [address] Performed By: #### 56063-0 ####[facility] [id number] [place] [address] [place] MCH (RBC) [Entitic mass]30.1 cjXctbgj98.0-34.0[facility] on above:Order Comment: Specimen Type: BLOOD SPECIMENOrdering Facility: [facility] Address:[address] [place] [address] Performed By: #### 34464-7 ####[facility] [id number] [place] [address] [place] MCHC (RBC) [Mass/Vol]33.2 g/bPHyvadg35.5-36.0[facility] on above:Order Comment: Specimen Type: BLOOD SPECIMENOrdering Facility: [facility] Address:[address] [place] [address] Performed By: #### 06681-0 ####[facility] [id number] [place] [address] [place] MCV (RBC) [Entitic vol]90.7 mKXpahlk96.0-100.0[facility] on above:Order Comment: Specimen Type: BLOOD SPECIMENOrdering Facility: [facility] Address:[address] [place] [address] Performed By: #### 92052-7 ####[facility] [id number] [place] [address] [place] Nucleated RBC (Bld) [#/Vol]10*3/uLNormal<0.01[facility] on above:Order Comment: Specimen Type: BLOOD SPECIMENOrdering Facility: [facility] Address:[address] [place] [address] Performed By: #### 42058-3 ####[facility] HOSPITALIA [id number] [place] [address] [place] Platelet mean volume (Bld) [Entitic vol]10.8 fLNormal9.0-12.7CHolmes [facility] on above:Order Comment: Specimen Type: BLOOD SPECIMENOrdering Facility: [facility] Address:[address] [place], [place] [address]Performed By: #### 09697-5 ####[facility] LAB[facility] [id number] [place] [address] [place] Platelets (Bld) [#/Vol]194 10*3/kROpmjpa842-682BhaxswjgrUniversity Hospitals Health System on above:Order Comment: Specimen Type: BLOOD SPECIMENOrdering Facility: [facility] Address:[address] [place] [address] Performed By: #### 26262-7 ####[facility] [id number] [place] [address] [place] RBC (Bld) [#/Vol]2.89 10*6/uLLow3.90-5.20[facility] on above:Order Comment: Specimen Type: BLOOD SPECIMENOrdering Facility: [facility] Address:[address] [place], [place] [address]Performed By: #### 34675-9 ####[facility] [id number] [place] [address] [place] [facility] VALLEY HOSPITALWBC (Bld) [#/Vol]6.01 10*3/uLNormal3.70-11.00[facility] on above:Order Comment: Specimen Type: BLOOD SPECIMENOrdering Facility: [facility] Address:[address] [place], [place] [address]Performed By: #### 32133-6 ####[facility] HOSPITALIA [id number] [place] [address] [place] AMERICACONSULT PROGon 12-22-0268VGVMBNZ PROGNormalWood County HospitalCRP SerPl-mCncon 56-43-5338PFG [Mass/Vol] 11.4 mg/dLHigh<0.9ClevelWayne HealthCare Main Campus on above:Order Comment: Specimen Type: BLOOD SPECIMENOrdering Facility: [facility] Address:[address] [place], [place] [address]Performed By: #### 1988-5, 33009-1, 43717-9, 2571-8 ####[facility] [id number] [place] [address] [place] AMERICAMagnesium SerPl-mCncon 27-94-5542Lkluldzaf [Mass/Vol]2.0 mg/dLNormal1.7-2.3CMercy Health Urbana Hospital Comment on above:Order Comment: Specimen Type: BLOOD SPECIMENOrdering Facility: [facility] Address:[address] [place] [address] Performed By: #### 1987-11, , 36520-0, 8 ####[facility] LABCLIA [id number] [place] [id number] [facility] OF [facility] CHILDREN'S HOSPITALUTRITIONon 55-94-1900KIIRVISQQTzovmxOfwmguegi Clinic [place] Renal function 2000 panelon 96-38-0913Minpyzl [Mass/Vol]3.1 g/dLLow3.9-4.9 [facility] HospitalComment on above:Order Comment: Specimen Type: BLOOD SPECIMENOrdering Facility: [facility] Address:[address] [place], [place] [address]Performed By: #### 1987-11, , 68177-6, 2571-02 ####[facility]CL[facility] [id number] [place] [address] [place] AMERICAAnion gap [Moles/Vol]10 mmol/L Normal8-15[facility] HospitalComment on above:Order Comment: Specimen Type: BLOOD SPECIMENOrdering Facility: [facility] Address:[address] [place], [place] [address]Performed By: #### 1987-11, , , 2571-02 ####[facility] LABCLIA [id number] [facility] [place] [id number] [place] OF AMERICACalcium [Mass/Vol]8.4 mg/dLLow 8.5-10.2CMercy Health Urbana HospitalComup health system on above:Order Comment: Specimen Type: BLOOD SPECIMENOrdering Facility: [facility] Address:[address] [place], [place] [address]Performed By: #### 1987-11, , 53508-9, 8 ####[facility] LABCLIA [id number] [place] [id number] [place] AMERICAChloride [Moles/Vol]102 mmol/L Gvjvja59-062FpkmpekexUniversity Hospitals Health System on above:Order Comment: Specimen Type: BLOOD SPECIMENOrdering Facility: [facility] Address:[address] [place], [place] [address]Performed By: #### 1987-11, , 64157-7, 2578 ####[facility]CL[facility] [id number] [place] [address] [place] AMERICACO2 [Moles/Vol]25 mmol/LNormal 22-30[facility] on above:Order Comment: Specimen Type: BLOOD SPECIMENOrdering Facility: [facility] Address:[address] [place], [place] [address]Performed By: #### 1987-11, , 99312-9, 2578 ####[facility]CL[facility] [id number] [address] STATES OF AMERICACreatinine [Mass/Vol]0.37 mg/dL Low0.58-0.96[facility] on above:Order Comment: Specimen Type: BLOOD SPECIMENOrdering Facility: [facility] Address:[address] [place], [place] [address]Performed By: #### 1987-11, , 72210-1, 2578 ####[facility]CL[facility] [id number] [place] [address] [place] AMERICAeGFRcr SerPlBld CKD-EPI 0654421 mL/min/1.73m???Normal>=60[facility] on above:Order Comment: Specimen Type: BLOOD SPECIMENOrdering Facility: [facility] Address:[address] [place], [place] [address]Result Comment: Estimated Glomerular Filtration Rate (eGFR) is calculated using the 2020 CKD-EPI cre atinine equation. This equation utilizes serum creatinine, sex, and age as parameters. The creatinine assay has traceable calibration to isotope dilution- mass spectrometry. Refer to KDIGO guidelines for clinical interpretation. In patients with unstable renal function, e.g. those with acute kidney injury, the eGFR may not accurately reflect actual GFR.Performed By: #### 1987-11, , , 2571-02 ####[facility] LABCLIA [id number] [facility] [id number] [place] [address] [place] STATES OF [facility]LEY HOSPITALGlucose [Mass/Vol]117 mg/eAAejt51-83JvyljiaocUniversity Hospitals Health System on above:Order Comment: Specimen Type: BLOOD SPECIMENOrdering Facility: [facility] Address:[address] [place], [place] [address]Result Comment: The [place] Diabetes Association (ADA) provides guidance for cutoff [...] symptoms of hyperglycemia or hyperglycemic crisis, random plasmaglucose results greater than or equal to 200 mg/dL meet the criteria for diagnosis of diabetes.Reference: Standards of Medical Care in Diabetes 2016, [place] Diabetes [employer]. Diabetes Care. 2016.39(Suppl 1). Performed By: #### 1987-11, , , 2571-02 ####[facility] LABCL[facility] [id number] [facility]ALK [id number] [place] [address] [place] AMERICAPhosphate [Mass/Vol]3.3 mg/dLNormal2.7-4.8CHolmes [facility] on above:Order Comment: Specimen Type: BLOOD SPECIMENOrdering Facility: [facility] Address:[address] [place] [id number] By: #### 1987-11, , , 2571-02 ####[facility]CL[facility] [id number] [facility]ALK [id number] [place] [address] [place] AMERICAPotassium [Moles/Vol]3.3 mmol/LLow3.7-5.1CHolmes [facility] on above:Order Comment: Specimen Type: BLOOD SPECIMENOrdering Facility: [facility] Address:[address] [place], [place] [address]Performed By: #### 1987-11, , 87607-9, 257-8 ####[facility] LABCL[facility] [id number] [place] [address] [place] [facility] CHILDREN'S HOSPITALSodium [Moles/Vol]137 mmol/L Gnmlqb386-429VdkiywzfqUniversity Hospitals Health System on above:Order Comment: Specimen Type: BLOOD SPECIMENOrdering Facility: [facility] Address:[address] [place], [place] [address]Performed By: #### 1987-11, , 57903-4, 257-8 ####[facility]CL[facility] [id number] [place] [address] [place] OF AMERICAUrea nitrogen [Mass/Vol]14 mg/dL Normal7-21[facility] on above:Order Comment: Specimen Type: BLOOD SPECIMENOrdering Facility: [facility] Address:[address] [place], [place] [address]Performed By: #### 1987-11, , 68152-4, 2578 ####[facility] LABIA [id number] [place] [address] [place] OF AMERICATHERAPY NTon 31-19-6459ANZSEVV NTNormalCMercy Health Urbana HospitalTrigl SerPl-mCncon 98-37-6074Fhqkbfpnaohh [Mass/Vol]128 mg/dLNormal<150[facility] on above:Order Comment: Specimen Type: BLOOD SPECIMENOrdering Facility: [facility] Address:[address] [place], [place] [address]Result Comment: <150 mg/dL, Normal 150-199 mg/dL, Borderline high 200-499 mg/dL, High>499 mg/dL, Very highReference:1. National Cholesterol Education Program ATP III Guideline At-A-Glance QuickDesk Reference: National Heart, Lung, and Blood [place]. National Institutes of Health. 2001: NIHPublication No. [id number].Performed By: #### 1985-11, , 30811-3, 2571-8 ####[facility] LABCLIA [id number] [place] [id number] [place] Triglyceride [Mass/Vol]on [id number] TIME0 hrsNormalCHolmes County Joel [facility] on above:Order Comment: Specimen Type: BLOOD SPECIMENOrdering Facility: [facility] [facility] Address:[address] [place], [place] [address]Performed By: #### 1987-11, , 50260-1, 2570-8 ####[facility] [id number] [place] [id number] [place] [facility]ITALBasic metabolic 2000 panelon 48-90-9836Gpayj gap [Moles/Vol]12 mmol/LNormal8-15[facility] on above:Order Comment: Specimen Type: BLOOD SPECIMENOrdering Facility: [facility] Address:[address] [place], [place] [address]Performed By: #### 14902- 2, 99650-7, , 2776- ####[facility] [id number] [place] [id number] [place] Calcium [Mass/Vol]8.1 mg/dLLow8.5-10.2CHolmes [facility] on above:Order Comment: Specimen Type: BLOOD SPECIMENOrdering Facility: [facility] Address:[address] [place], [place] [address]Performed By: #### 04683-8, 22276-3, , 2776-1 ####[facility] [id number] [place] [address] [place] Chloride [Moles/Vol]103 mmol/MYoiite42-421RnutmcgkuUniversity Hospitals Health [facility] on above:Order Comment: Specimen Type: BLOOD SPECIMENOrdering Facility: [facility] Address:[address] [place] [address]Ipwszqael By: #### 91286-5, 88033-6, 29053-2, 2777-1 ####[facility] [id number] [place] [address] [place] CO2 [Moles/Vol]23 mmol/JQednoq87-39XranzwaiaUniversity Hospitals Health System on above: Order Comment: Specimen Type: BLOOD SPECIMENOrdering Facility: [facility] Address:[address] [place], [place] [address]Performed By: #### 07009- 2, 94721-4, 15968-4, 7-1 ####[facility] [id number] [place] Creatinine [Mass/Vol]0.37 mg/dLLow0.58-0.96[facility] on above:Order Comment: Specimen Type: BLOOD SPECIMENOrdering Facility: [facility] Address:[address] [place], [place] [address]Performed By: #### 92803-7, 77928-3, 55437-2, 7-1 ####[facility] [id number] [place] [id number] [place] eGFRcr SerPlBld CKD-EPI 7709454 mL/min/1.73m???Normal>=60[facility] on above:Order Comment: Specimen Type: BLOOD SPECIMENOrdering Facility: [facility] Address:[address] [place], [place] [address]Result Comment: Estimated Glomerular Filtration Rate (eGFR) is calculated using the 2020 CKD-EPI creatinine equation. This equation utilizes serum creatinine, sex, and age as parameters. The creatinine assay has traceable calibration to isotope dilution-mass spectrometry. Refer to KDIGO guidelines for clinical interpretation. In patients with unstable renal function, e.g. those with acute kidney injury, the eGFR may not accurately reflect actual GFR. Performed By: #### 17530-9, 08788-3, , 2776-07 ####[facility] [id number] [facility] [address] [address] [place] AMERICAGlucose [Mass/Vol]111 mg/rHFiya35-33GqomcgfsxWood [facility] Hospital Comment on above:Order Comment: Specimen Type: BLOOD SPECIMENOrdering Facility: [facility] Address:[address] [place], [place] [address]Result Comment: The [place] Diabetes Association (ADA) provides guidance for cutoff values for fasting glucose and random glucose. The ADA defines fasting as no caloric intake for at least 8 hours. Fasting plasma glucose results between 100 to 125 mg/dL indicate increased risk for diabetes (prediabetes).Fasting plasma glucose results greater than or equal to 126 mg/dL meet the criteria for diagno sis of diabetes. In the absence of unequivocal hyperglycemia, results should be confirmed by repeattesting. In a patient with classic symptoms of hyperglycemia or hyperglycemic crisis, random plasmaglucose results greater than or equal to 200 mg/dL meet the criteria for diagnosis of diabetes.Reference: Standards of Medical Care in Diabetes 2016, [place] Diabetes Association. Diabetes Care. 2016.39(Suppl 1).Performed By: #### 35631-4, 69204-8, , 2776-07 ####[facility]CL[facility] [id number] [facility] [address], [place] [address] [place] AMERICAPotassium [Moles/Vol]4.0 mmol/L Normal3.7-5.1CMercy Health Urbana HospitalComment on above:Order Comment: Specimen Type: BLOOD SPECIMENOrdering Facility: [facility] Address:[address] [place] [id number] By: #### 33963-2, 68569-4, , 2776-07 ####[facility] [id number] [facility] [id number] [place] [address] [place] AMERICASodium [Moles/Vol]138 mmol/L Mikasq361-452SjgmrczzcUniversity Hospitals Health [facility] on above:Order Comment: Specimen Type: BLOOD SPECIMENOrdering Facility: [facility] Address:[address] [place], [place] [address]Performed By: #### 14988-8, 02060-6, 70636-1, 2777-1 ####[facility]CL[facility] [id number] [address] STATES OF [facility] VALLEY HOSPITALUrea nitrogen [Mass/Vol]12 mg/dL Normal7-21[facility] on above:Order Comment: Specimen Type: BLOOD SPECIMENOrdering Facility: [facility] Address:[address] [place], [place] [address]Performed By: #### 66132-4, 95465-3, 34244-8, 2777-1 ####[facility] [id number] [address] STATES OF [facility]LEY HOSPITALCASE MANAGEMon 64-93-1918EUVI MANAGEMNormalWood County HospitalCB panel Auto (Bld)on 02-19-2025 Erythrocyte distribution width (RBC) [Ratio]13.0 %Ioojhu83.5-15.0[facility] on above:Order Comment: Specimen Type: BLOOD SPECIMENOrdering Facility: [facility] Address:[address] [place], [place] [address]Performed By: #### 02864-2 ####[facility] [id number] [address] K[address] STREETHematocrit (Bld) [Volume fraction]27.1 %Low36.0-46.0[facility] on above:Order Comment: Specimen Type: BLOOD SPECIMENOrdering Facility: [facility] Address:[address] [place], [place] [address]Performed By: #### 40476-7 ####[facility]CL[facility] [id number] [address], [place] [address] [place] Hemoglobin (Bld) [Mass/Vol]8.8 g/dLLow11.5-15.5CHolmes [facility] on above:Order Comment: Specimen Type: BLOOD SPECIMENOrdering Facility: [facility] Address:[address] [place] [address] Performed By: #### 85548-2 ####[facility] LABIA [id number] [place] [address] [place] MCH (RBC) [Entitic mass]30.2 nkUlcjmr29.0-34.0[facility] on above:Order Comment: Specimen Type: BLOOD SPECIMENOrdering Facility: [facility] Address:[address] [place] [address] Performed By: #### 81874-5 ####[facility] [id number] [address] [place] MCHC (RBC) [Mass/Vol]32.5 g/mVUhdmig28.5-36.0[facility] on above:Order Comment: Specimen Type: BLOOD SPECIMENOrdering Facility: [facility] Address:[address] [place] [address] Performed By: #### 18319-7 ####[facility]OSPITALIA [id number] [place] [address] [place] MCV (RBC) [Entitic vol]93.1 eTXphpbx14.0-100.0[facility] on above:Order Comment: Specimen Type: BLOOD SPECIMENOrdering Facility: [facility] Address:[address] [place] [address] Performed By: #### 10554-1 ####[facility] LABIA [id number] [place] [address] [place] Nucleated RBC (Bld) [#/Vol]10*3/uLNormal<0.01[facility] on above:Order Comment: Specimen Type: BLOOD SPECIMENOrdering Facility: [facility] Address:[address] [place] [address] Performed By: #### 69174-7 ####[facility] LABIA [id number] [place] [address] [place] Platelet mean volume (Bld) [Entitic vol]11.4 fLNormal9.0-12.7CHolmes County [facility] on above:Order Comment: Specimen Type: BLOOD SPECIMENOrdering Facility: [facility] Address:[address] [place], [place] [address]Performed By: #### 34196-1 ####[facility] [id number] [place] [address] [place] Platelets (Bld) [#/Vol]203 10*3/iJZnsakg205-060FvkmlkwvqUniversity Hospitals [facility] on above:Order Comment: Specimen Type: BLOOD SPECIMENOrdering Facility: [facility] Address:[address] [place] [address] Performed By: #### 62287-9 ####[facility] [id number] [place] [address] [place] RBC (Bld) [#/Vol]2.91 10*6/uLLow3.90-5.20[facility] on above:Order Comment: Specimen Type: BLOOD SPECIMENOrdering Facility: [facility] Address:[address] [place], [place] [address]Performed By: #### 22259-3 ####[facility] [id number] [place] [address] [place] AMERICAWBC (Bld) [#/Vol]8.49 10*3/uLNormal3.70-11.00[facility] on above:Order Comment: Specimen Type: BLOOD SPECIMENOrdering Facility: [facility] Address:[address] [place], [place] [address]Performed By: #### 31009-8 ####[facility]CL[facility] [id number] [address] [address] [place] AMERICACONSULTon 48-77-1992WPQUYNYJjnivr Wood County HospitalCONSULT PROGon 34-91-6053DNWFOTJ PROGNormalWood County HospitalHepatic function 2000 panelon 01-43-0150Uwdashm [Mass/Vol]3.1 g/dLLow3.9-4.9CHolmes [facility] on above:Order Comment: Specimen Type: BLOOD SPECIMENOrdering Facility: [facility] Address:[address] [place], [place] [address]Performed By: #### 53107-0, 06428-6, , 2776- ####[facility] LABIA [id number] [place] [address] [place] AMERICAALP [Catalytic activity/Vol]152 U/GZtmh61-692UanviuisyUniversity Hospitals Health System on above:Order Comment: Specimen Type: BLOOD SPECIMENOrdering Facility: [facility] Address:[address] [place], [place] [address]Performed By: #### 05076-5, 22923-0, , 2776- ####[facility]IA [id number] [place] [address] [place] AMERICAALT [Catalytic activity/Vol]23 U/LNormal7-38[facility] on above:Order Comment: Specimen Type: BLOOD SPECIMENOrdering Facility: [facility] Address:[address] [place], [place] [address]Performed By: #### 89639-1, 07674-1, , 2776- ####[facility] LABIA [id number] [address] [address] [place] AMERICAAST [Catalytic activity/Vol]28 U/AVgtkhn52-24PiogzierwUniversity Hospitals Health System on above:Order Comment: Specimen Type: BLOOD SPECIMENOrdering Facility: [facility] Address:[address] [place], [place] [address]Performed By: #### 10659-0, 84761-7, , 2776-07 ####[facility]IA [id number] [place] [address] [place] AMERICABilirubin [Mass/Vol]0.8 mg/dL Normal0.2-1.3CHolmes [facility] on above:Order Comment: Specimen Type: BLOOD SPECIMENOrdering Facility: [facility] Address:[address] [place], [place] [address]Performed By: #### 05860-2, 05788-2, , 2776-07 ####[facility]ITALIA [id number] [place] [address] [place] AMERICABilirubin.conjugated [Mass/Vol] 0.3 mg/dLHigh<0.3CHolmes [facility] on above:Order Comment: Specimen Type: BLOOD SPECIMENOrdering Facility: [facility] Address:[address] [place], [place] [address]Performed By: #### 19263-7, 49018-4, , 2776-07 ####[facility]PITALIA [id number] [place] [address] [place] AMERICAProtein [Mass/Vol]5.9 g/dLLow6.3-8.0[facility] on above:Order Comment: Specimen Type: BLOOD SPECIMENOrdering Facility: [facility] Address:[address] [place], [place] [address]Performed By: #### 67134-1, 81957-3, , 2776-07 ####[facility]IA [id number] [place] [address] [place] AMERICAMagnesium SerPl-mCncon 49-11-0820Kcudqinto [Mass/Vol]2.0 mg/dLNormal1.7-2.3CMercy Health Urbana Hospital Comment on above:Order Comment: Specimen Type: BLOOD SPECIMENOrdering Facility: [facility] Address:[address] [place] [address] Performed By: #### 15889-9, 80422-2, 07132-8, 2776-1 ####[facility]CL[facility] [id number] [place] [address] [place] [facility] OF AMERICANUTRITIONon 17-94-5110NWGSRWOIQBzjnwoMvmyzvtvf [facility] Phosphate SerPl-mCncon 72-01-3958Pykwzswli [Mass/Vol]3.0 mg/dLNormal2.7-4.8 [facility] HospitalComment on above:Order Comment: Specimen Type: BLOOD SPECIMENOrdering Facility: [facility] Address:[address] [place], [place] [address]Performed By: #### 32955-2, 44377-4, , 2776- ####[facility]CL[facility] [id number] [place] [address] [place] OF [facility] VALLEY HOSPITALTHERAPY NTon 71-56-5908NNATHBS NT NormalWood County HospitalTHERAPY NTNormalCMercy Health Urbana HospitalCBC panel Auto (Bld)on 49-35-7303Wtlqwtxchtv distribution width (RBC) [Ratio]13.3 % Qwwwgh39.5-15.0[facility] on above:Order Comment: Specimen Type: BLOOD SPECIMENOrdering Facility: [facility] Address:[address] [place], [place] [address]Performed By: #### 08704-3 ####[facility]CL[facility] [id number] [place] [address] [place] AMERICAHematocrit (Bld) [Volume fraction]26.4 %Low36.0-46.0[facility] on above:Order Comment: Specimen Type: BLOOD SPECIMENOrdering Facility: [facility] Address:[address] [place], [place] [address]Performed By: #### 64258- 2 ####[facility]IA [id number] [address]ETHemoglobin (Bld) [Mass/Vol]8.9 g/dLLow11.5-15.5CHolmes [facility] on above:Order Comment: Specimen Type: BLOOD SPECIMENOrdering Facility: [facility] Address:[address] [place], [place] [address]Performed By: #### 31709-4 ####[facility] LABIA [id number] [address] (RBC) [Entitic mass]31.0 pg Uiouvw66.0-34.0[facility] on above:Order Comment: Specimen Type: BLOOD SPECIMENOrdering Facility: [facility] Address:[address] [place], [place] [address]Performed By: #### 38976-5 ####[facility] [id number] [address] ST[address]ETMCHC (RBC) [Mass/Vol]33.7 g/dL Kaniqt60.5-36.0[facility] on above:Order Comment: Specimen Type: BLOOD SPECIMENOrdering Facility: [facility] Address:[address] [place], [place] [address]Performed By: #### 45546-1 ####[facility]BRIGHTL[facility] [id number] [address]ETV (RBC) [Entitic vol]92.0 fL Xifctc18.0-100.0[facility] on above:Order Comment: Specimen Type: BLOOD SPECIMENOrdering Facility: [facility] Address:[address] [place], [place] [address]Performed By: #### 31184-4 ####[facility] LABBRIGHTLOOK [facility] [id number] [address] RBC (Bld) [#/Vol] 10*3/uLNormal<0.01[facility] on above:Order Comment: Specimen Type: BLOOD SPECIMENOrdering Facility: [facility] Address:[address] [place], [place] [address]Performed By: #### 04172-9 ####[facility]CL[facility] [id number] [place] [address] [place] AMERICAPlatelet mean volume (Bld) [Entitic vol]10.8 fLNormal9.0-12.7CHolmes [facility] on above: Order Comment: Specimen Type: BLOOD SPECIMENOrdering Facility: [facility] Address:[address] [place], [place] [address]Performed By: #### 54159- 2 ####[facility]CL[facility] [id number] [place] [address] [place] AMERICAPlatelets (Bld) [#/Vol]176 10*3/jMPbcpsz286-471WyfhsellbUniversity Hospitals Health System on above:Order Comment: Specimen Type: BLOOD SPECIMENOrdering Facility: [facility] Address:[address] [place], [place] [address]Performed By: #### 14808-9 ####[facility] [id number] [place] [address] [place] AMERICARBC (Bld) [#/Vol]2.87 10*6/uLLow 3.90-5.20[facility] on above:Order Comment: Specimen Type: BLOOD SPECIMENOrdering Facility: [facility] Address:[address] [place], [place] [address]Performed By: #### 31165-7 ####[facility] [id number] [place] [address] [place] AMERICAWBC (Bld) [#/Vol]8.18 10*3/uLNormal3.70-11.00[facility] on above:Order Comment: Specimen Type: BLOOD SPECIMENOrdering Facility: [facility] Address:[address] [place], [place] [address]Performed By: #### 34679-0 ####[facility] [id number] [place] [address] [place] AMERICACRP SerPl-mCncon 50-61-6224HOR [Mass/Vol]14.6 mg/dLHigh<0.9ClevelWayne HealthCare Main Campus on above:Order Comment: Specimen Type: BLOOD SPECIMENOrdering Facility: [facility] Address:[address] [place], [place] [address]Performed By: #### 1988-5 ####[facility] [id number] [place] [address] [place] AMERICAMagnesium SerPl-mCncon 00-34-2407Hkijuftbp [Mass/Vol]2.1 mg/dLNormal 1.7-2.3CHolmes [facility] on above:Order Comment: Specimen Type: BLOOD SPECIMENOrdering Facility: [facility] Address:[address] [place], [place] [address]Performed By: #### 86384-0, 29921-0 ####[facility]CL[facility] [id number] [place] [address] [place] AMERICARenal function 2000 panelon 49-89-3863Eqaueeu [Mass/Vol]2.9 g/dLLow3.9-4.9CHolmes [facility] on above:Order Comment: Specimen Type: BLOOD SPECIMENOrdering Facility: [facility] Address:[address] [place], [place] [address]Performed By: #### 21319- 9, 91829-9 ####[facility]CL[facility] [id number] [place] [address] [place] AMERICAAnion gap [Moles/Vol]11 mmol/LNormal8-15[facility] on above:Order Comment: Specimen Type: BLOOD SPECIMENOrdering Facility: [facility] Address:[address] [place], [place] [address]Performed By: #### 97543-6, 25550-8 ####[facility] [id number] [place] [address] [place] AMERICACalcium [Mass/Vol]7.8 mg/dLLow 8.5-10.2CHolmes [facility] on above:Order Comment: Specimen Type: BLOOD SPECIMENOrdering Facility: [facility] Address:[address] [place], [place] [address]Performed By: #### 19606-1, 33908-6 ####[facility] [id number] [place] [address] [place] AMERICAChloride [Moles/Vol]103 mmol/QGcvhja66-143 [facility] on above:Order Comment: Specimen Type: BLOOD SPECIMENOrdering Facility: [facility] Address:[address] [place], [place] [address]Performed By: #### 96655-6, 45090-1 ####[facility] [id number] [place] [address] [place] AMERICACO2 [Moles/Vol]20 mmol/NQht58-38KjemojtafWood County Hospital Comment on above:Order Comment: Specimen Type: BLOOD SPECIMENOrdering Facility: [facility] Address:[address] [place] [address] Performed By: #### 48459-0, 96251-7 ####[facility] [id number] [place] [address] [place] Creatinine [Mass/Vol]0.41 mg/dLLow0.58-0.96[facility] on above:Order Comment: Specimen Type: BLOOD SPECIMENOrdering Facility: [facility] Address:[address] [place], [place] [address]Performed By: #### 56162-0, 25914-2 ####[facility] [id number] [place] [address] [place] AMERICAeGFRcr SerPlBld CKD- EPI 7014906 mL/min/1.73m???Normal>=60[facility] on above: Order Comment: Specimen Type: BLOOD SPECIMENOrdering Facility: [facility] Address:[address] [place], [place] [address]Result Comment: Estimated Glomerular Filtration Rate (eGFR) is calculated using the 2020 CKD-EPI cre atinine equation. This equation utilizes serum creatinine, sex, and age as parameters. The creatinine assay has traceable calibration to isotope dilution- mass spectrometry. Refer to KDIGO guidelines for clinical interpretation. In patients with unstable renal function, e.g. those with acute kidney injury, the eGFR may not accurately reflect actual GFR.Performed By: #### 68671-5, 05821-1 ####[facility] [id number] [place] [address] [place] AMERICAGlucose [Mass/Vol]239 mg/dLHigh 74-99[facility] on above:Order Comment: Specimen Type: BLOOD SPECIMENOrdering Facility: [facility] Address:[address] [place] [address] Comment: The [place] Diabetes [employer] (ADA) provides guidance for cutoff [...] unequivocal hyperglycemia, results should be confirmed by repeattesting. In a patient with classic symptoms of hyperglycemia or hyperglycemic crisis, random plasmaglucose results greater than or equal to 200 mg/dL meet the criteria for diagnosis of diabetes.Reference: Standards of Medical Care in Diabetes 2016, [place] [employer]. Diabetes Care. 2016.39(Suppl 1).Performed By: #### 27805- 9, 46415-4 ####[facility] LABCL[facility] [id number] EUCLIHaleigh DE LA VEGAWASHINGTON COUNTY HOSPITALK [place] [id number] [place] AMERICAPhosphate [Mass/Vol]3.4 mg/dLNormal2.7-4.8ClevelWayne HealthCare Main Campus on above:Order Comment: Specimen Type: BLOOD SPECIMENOrdering Facility: [facility] Address:[address] [place], [place] [address]Performed By: #### 62700-0, 97365-0 ####[facility] [id number] [place] [address] [place] AMERICAPotassium [Moles/Vol]4.4 mmol/L Normal3.7-5.1ClevelWayne HealthCare Main Campus on above:Order Comment: Specimen Type: BLOOD SPECIMENOrdering Facility: [facility] Address:[address] [place], [place] [address]Performed By: #### 05267-7, 08702-1 ####[facility] [id number] [place] [address] [place] [facility] VALLEY HOSPITALSodium [Moles/Vol]134 mmol/VPrg318-166UxvctmqbbUniversity Hospitals Health System on above:Order Comment: Specimen Type: BLOOD SPECIMENOrdering Facility: [facility] Address:[address] [place], [place] [address]Performed By: #### 25478-8, 48212-0 ####[facility] [id number] [place] [address] [place] AMERICAUrea nitrogen [Mass/Vol]13 mg/dLNormal7-21[facility] on above:Order Comment: Specimen Type: BLOOD SPECIMENOrdering Facility: [facility] Address:[address] [place], [place] [address]Performed By: #### 65219-9, 19586-1 ####[facility] [id number] [place] [id number] [place] [facility] OF [facility] VALLEY HOSPITALCBC panel Auto (Bld)on 04-88-6587Vxkgaelulzx distribution width (RBC) [Ratio]13.5 %Sukfcd17.5-15.0[facility] on above:Order Comment: Specimen Type: BLOOD SPECIMENOrdering Facility: [facility] Address:[address] [place], [place] [address]Performed By: #### [id number] ####[facility] LABCLIA [id number] [address] OF AMERICAHematocrit (Bld) [Volume fraction]27.4 %Low36.0-46.0[facility] on above:Order Comment: Specimen Type: BLOOD SPECIMENOrdering Facility: [facility] Address:[address] [place], [place] [address]Performed By: #### [id number] ####[facility] LABIA [id number] [address] [address]RE[address] OF AMERICAHemoglobin (Bld) [Mass/Vol]9.0 g/dLLow11.5-15.5CHolmes County [facility] on above:Order Comment: Specimen Type: BLOOD SPECIMENOrdering Facility: [facility] Address:[address] [place], [place] [address]Performed By: #### 41200-0 ####[facility] LABCLIA [id number] [address] ST[address]ETMCH (RBC) [Entitic mass]29.9 pg Krmepn37.0-34.0[facility] on above:Order Comment: Specimen Type: BLOOD SPECIMENOrdering Facility: [facility] Address:[address] [place], [place] [address]Performed By: #### 26307-0 ####[facility] LABCLIA [id number] [address]ETMCHC (RBC) [Mass/Vol]32.8 g/dL Bjahge50.5-36.0[facility] on above:Order Comment: Specimen Type: BLOOD SPECIMENOrdering Facility: [facility] Address:[address] [place], [place] [address]Performed By: #### 00293-8 ####[facility] LABIA [id number] [address]ETMCV (RBC) [Entitic vol]91.0 fL Lpuulu61.0-100.0[facility] on above:Order Comment: Specimen Type: BLOOD SPECIMENOrdering Facility: [facility] Address:[address] [place], [place] [address]Performed By: #### 64236-8 ####[facility] LABIA [id number] [address]ucleated RBC (Bld) [#/Vol] 10*3/uLNormal<0.01[facility] on above:Order Comment: Specimen Type: BLOOD SPECIMENOrdering Facility: [facility] Address:[address] [place], [place] [address]Performed By: #### 21096-4 ####[facility] LABIA [id number] [address] STATES OF AMERICAPlatelet mean volume (Bld) [Entitic vol]11.2 fLNormal9.0-12.7CHolmes [facility] on above: Order Comment: Specimen Type: BLOOD SPECIMENOrdering Facility: [facility] Address:[address] [place], [place] [address]Performed By: #### 07014- 2 ####[facility]BRIGHTL[facility] [id number] [place] [address] [place] OF AMERICAPlatelets (Bld) [#/Vol]164 10*3/iZAceont611-506HvtgkudofUniversity Hospitals [facility] on above:Order Comment: Specimen Type: BLOOD SPECIMENOrdering Facility: [facility] Address:[address] [place], [place] [address]Performed By: #### 44247-5 ####[facility] LABIA [id number] [address] [address] [place] OF [facility]LEY HOSPITALRBC (Bld) [#/Vol]3.01 10*6/uLLow 3.90-5.20[facility] on above:Order Comment: Specimen Type: BLOOD SPECIMENOrdering Facility: [facility] Address:[address] [place], [place] [address]Performed By: #### 89887-9 ####[facility] LABIA [id number] [address] [address] [place] [facility]S HOSPITALWBC (Bld) [#/Vol]9.64 10*3/uLNormal3.70-11.00[facility] on above:Order Comment: Specimen Type: BLOOD SPECIMENOrdering Facility: [facility] Address:[address] [place], [place] [address]Performed By: #### 31639-4 ####[facility] LABIA [id number] [address] [address] [place] OF AMERICACONSULT PROGon 95-76-8922XEUOERX PROGNormalWood County HospitalCRP SerPl-mCncon 23-60-6905FGW [Mass/Vol]16.8 mg/dLHigh<0.9ClevelWayne [facility]Care [facility] on above:Order Comment: Specimen Type: BLOOD SPECIMENOrdering Facility: [facility] Address:[address] [place], [place] [address]Performed By: #### 1987- ####[facility] LABIA [id number] [place] [address] [place] CRP [Mass/Vol]17.7 mg/dLHigh<0.9[facility] on above:Order Comment: Specimen Type: BLOOD SPECIMENOrdering Facility: [facility] Address:[address] [place], [place] [address]Performed By: #### 1987- , 52043-8, 07812-4 ####[facility] LABCLIA [id number] [address] [address] [place] OF AMERICAMagnesium SerPl-mCncon 84-63-7970Xzlvlojjk [Mass/Vol]1.8 mg/dLNormal1.7-2.3CHolmes [facility] on above:Order Comment: Specimen Type: BLOOD SPECIMENOrdering Facility: [facility] Address:[address] [place], [place] [address]Performed By: #### 1987-11, , ####[facility] LABCLIA [id number] [place] [id number] [place] OF AMERICARenal function 2000 panelon 76-78-2578Bbwviyj [Mass/Vol]3.0 g/dLLow3.9-4.9ClevelWayne [facility]Care [facility] on above:Order Comment: Specimen Type: BLOOD SPECIMENOrdering Facility: [facility] Address:[address] [place], [place] [address]Performed By: #### , , ####[facility] LABIA [id number] [place] [address] [place] OF AMERICAAnion gap [Moles/Vol]11 mmol/LNormal8-15[facility] on above:Order Comment: Specimen Type: BLOOD SPECIMENOrdering Facility: [facility] Address:[address] [place], [place] [address]Performed By: #### , , ####[facility] LABIA [id number] [place] [address] [place] STATES OF AMERICACalcium [Mass/Vol]8.1 mg/dLLow8.5-10.2ClevelWayne HealthCare [facility] on above:Order Comment: Specimen Type: BLOOD SPECIMENOrdering Facility: [facility] Address:[address] [place], [place] [address]Performed By: #### , , ####[facility] LABIA [id number] [address] [address] [place] OF AMERICAChloride [Moles/Vol]102 mmol/YWaqsbe04-657JhfhcnbwhUniversity Hospitals Health System on above: Order Comment: Specimen Type: BLOOD SPECIMENOrdering Facility: [facility] Address:[address] [place], [place] [address]Performed By: #### , , ####[facility] LABIA [id number] [address] [address] [place] OF AMERICACO2 [Moles/Vol] 22 mmol/RDslwwp61-16IbmxhyghaUniversity Hospitals Health System on above:Order Comment: Specimen Type: BLOOD SPECIMENOrdering Facility: [facility] Address:[address] [place], [place] [address]Performed By: #### 1987-11, , ####[facility] LABIA [id number] [address] [place] OF AMERICACreatinine [Mass/Vol]0.51 mg/dL Low0.58-0.96[facility] on above:Order Comment: Specimen Type: BLOOD SPECIMENOrdering Facility: [facility] Address:[address] [place], [place] [address]Performed By: #### 1987-11, , ####[facility] [id number] [address] [place] OF AMERICAeGFRcr SerPlBld CKD-EPI 8640086 mL/min/1.73m???Normal>=60[facility] on above:Order Comment: Specimen Type: BLOOD SPECIMENOrdering Facility: [facility] Address:[address] [place], [place] [address]Result Comment: Estimated Glomerular Filtration Rate (eGFR) is calculated using the 2020 CKD-EPI cre atinine equation. This equation utilizes serum creatinine, sex, and age as parameters. The creatinine assay has traceable calibration to isotope dilution- mass spectrometry. Refer to KDIGO guidelines for clinical interpretation. In patients with unstable renal function, e.g. those with acute kidney injury, the eGFR may not accurately reflect actual GFR.Performed By: #### 1987-11, , ####[facility] LABIA [id number] AVENUEDESK [id number] [place] [address] [place] OF [facility]LEY HOSPITALGlucose [Mass/Vol]109 mg/dLHigh 74-99[facility] on above:Order Comment: Specimen Type: BLOOD SPECIMENOrdering Facility: [facility] Address:[address] [place], [place] [address]Result Comment: The [place] Diabetes Association (ADA) provides guidance for cutoff [...] unequivocal hyperglycemia, results should be confirmed by repeattesting. In a patient with classic symptoms of hyperglycemia or hyperglycemic crisis, random plasmaglucose results greater than or equal to 200 mg/dL meet the criteria for diagnosis of diabetes.Reference: Standards of Medical Care in Diabetes 2016, [place] [employer]. Diabetes Care. 2016.39(Suppl 1).Performed By: #### 1987-11, , ####[facility] LABIA [id number] [address] [place] OF AMERICAPhosphate [Mass/Vol] 1.4 mg/dLLow2.7-4.8CHolmes [facility] on above:Order Comment: Specimen Type: BLOOD SPECIMENOrdering Facility: [facility] Address:[address] [place], [place] [address]Performed By: #### 1987-11, , ####[facility] [id number] [address] [place] OF AMERICAPotassium [Moles/Vol]3.6 mmol/L Low3.7-5.1CHolmes [facility] on above:Order Comment: Specimen Type: BLOOD SPECIMENOrdering Facility: [facility] Address:[address] [place], [place] [address]Performed By: #### 1987-11, , 67627-0 ####[facility] LABCLIA [id number] VILLE [address] [facility] CENTERSodium [Moles/Vol]135 mmol/LLow 136-144[facility] on above:Order Comment: Specimen Type: BLOOD SPECIMENOrdering Facility: [facility] Address:[address] [place], [place] [address]Performed By: #### 1987-11, , 67702-0 ####[facility] LABCLIA [id number] VILLE [address] [facility]IA[facility] MEDICAL CENTERUrea nitrogen [Mass/Vol]11 mg/dL Normal7-21[facility] on above:Order Comment: Specimen Type: BLOOD SPECIMENOrdering Facility: [facility] Address:[address] [place], [place] [address]Performed By: #### 1987-11, , 72999-7 ####[facility] LABIA [id number] VILLE [address] [place] OF AMERICAAlbumin SerPl-mCncon 02-16-2025 Albumin [Mass/Vol]3.4 g/dLLow3.9-4.9CHolmes [facility] on above: Order Comment: Specimen Type: BLOOD SPECIMENOrdering Facility: [facility] Address:[address] [place], [place] [address]Performed By: #### , 1750-, , 02091-6 ####[facility] LABCLIA [id number] [place] [address] [place] OF AMERICABasic metabolic 2000 panelon 12-46-5212Djpcy gap [Moles/Vol]10 mmol/LNormal8-15 [facility] on above:Order Comment: Specimen Type: BLOOD SPECIMENOrdering Facility: [facility] Address:[address] [place], [place] [id number] By: #### 1987-11, 1751-01, , ####[facility] LABCLIA [id number] [place] [address] [place] OF AMERICACalcium [Mass/Vol]7.5 mg/dLLow 8.5-10.2CHolmes [facility] on above:Order Comment: Specimen Type: BLOOD SPECIMENOrdering Facility: [facility] Address:[address] [place], [place] [address]Result Comment: Result rechecked.Performed By: #### 1987-11, 1751-01, , ####[facility] LABCLIA [id number] [place] [id number] [place] Chloride [Moles/Vol]105 mmol/GWaomfb33-597UjidfepecUniversity Hospitals Health System on above:Order Comment: Specimen Type: BLOOD SPECIMENOrdering Facility: [facility] Address:[address] [place], [place] [address]Performed By: #### 1987-11, 1751-01, , ####[facility] LABCLIA [id number] [place] [address] [place] CO2 [Moles/Vol]24 mmol/QItnyrh97-72MivhgklwuUniversity Hospitals Health System on above: Order Comment: Specimen Type: BLOOD SPECIMENOrdering Facility: [facility] Address:[address] [place], [place] [address]Performed By: #### , 1751-01, , ####[facility] LABCLIA [id number] [place] [address] [place] Creatinine [Mass/Vol]0.52 mg/dLLow0.58-0.96Wood County HospitalComment on above:Order Comment: Specimen Type: BLOOD SPECIMENOrdering Facility: [facility] Address:[address] [place], [place] [id number] By: #### 1987-11, 1751-01, , 13811-0 ####[facility] LABCLIA [id number] [place] [id number] [facility] eGFRcr SerPlBld CKD-EPI 3911544 mL/min/1.73m???Normal>=60[facility] on above:Order Comment: Specimen Type: BLOOD SPECIMENOrdering Facility: [facility] Address:[address] [place], [place] [address]Result Comment: Estimated Glomerular Filtration Rate (eGFR) is calculated using the 2020 CKD-EPI creatinine equation. This equation utilizes serum creatinine, sex, and age as parameters. The creatinine assay has traceable calibration to isotope dilution-mass spectrometry. Refer to KDIGO guidelines for clinical interpretation. In patients with unstable renal function, e.g. those with acute kidney injury, the eGFR may not accurately reflect actual GFR. Performed By: #### 1987-11, 1751-01, , ####[facility] LABCLIA [id number] [place] [address] [place] OF [facility]LEY HOSPITALGlucose [Mass/Vol]107 mg/ePNlzh29-97FnqbjlunsWood County Hospital Comment on above:Order Comment: Specimen Type: BLOOD SPECIMENOrdering Facility: [facility] Address:[address] [place] [address]Gwmjjf Comment: The [place] Diabetes Association (ADA) provides guidance for cutoff values for fasting glucose and random glucose. The ADA defines fasting as no caloric intake for at least 8 hours. Fasting plasma glucose results between 100 to 125 mg/dL indicate increased risk for diabetes (prediabetes).Fasting plasma glucose results greater than or equal to 126 mg/dL meet the criteria for diagno sis of diabetes. In the absence of unequivocal hyperglycemia, results should be confirmed by repeattesting. In a patient with classic symptoms of hyperglycemia or hyperglycemic crisis, random plasmaglucose results greater than or equal to 200 mg/dL meet the criteria for diagnosis of diabetes.Reference: Standards of Medical Care in Diabetes 2016, [place] [employer]. Diabetes Care. 2016.39(Suppl 1).Performed By: #### 1987-11, 1751-01, , ####[facility] LABCLIA [id number] [place] [id number] [place] OF AMERICAPotassium [Moles/Vol]3.3 mmol/L Low3.7-5.1CHolmes [facility] on above:Order Comment: Specimen Type: BLOOD SPECIMENOrdering Facility: [facility] Address:[address] [place], [place] [address]Performed By: #### 1987-11, 1751-01, , ####[facility] LABIA [id number] [address]ETSodium [Moles/Vol]139 mmol/RHxgrjv340-210XwpnppsxhUniversity Hospitals Health System on above:Order Comment: Specimen Type: BLOOD SPECIMENOrdering Facility: [facility] Address:[address] [place], [place] [address]Performed By: #### 1987-11, 1751-01, , ####[facility] LABCLIA [id number] [place] [phone] [place] AMERICAUrea nitrogen [Mass/Vol]11 mg/dLNormal7-21[facility] on above:Order Comment: Specimen Type: BLOOD SPECIMENOrdering Facility: [facility] Address:[address] [place], [place] [address]Performed By: #### , 1751-01, , ####[facility] LABCLIA [id number] [place] [id number] [place] OF AMERICACASE MGT INIT ASSESon 29-38-9222OOVM MGT INIT ASSESNoalCMercy Health [facility]ana Hospital CBC W Auto Differential panel (Bld)on 03-39-4654Dbiwhcddf (Bld) [#/Vol]10*3/uL Normal<0.11CHolmes County [facility] on above:Order Comment: Specimen Type: BLOOD SPECIMENOrdering Facility: [facility] Address:[address] [place], [place] [address]Performed By: #### 00522-2 ####[facility] LABCLIA [id number] [place] [address] [place] AMERICABasophils/100 WBC (Bld)0.1 %NormalUniversity Hospitals Health System on above:Order Comment: Specimen Type: BLOOD SPECIMENOrdering Facility: [facility] Address:[address] [place], [place] [address]Performed By: #### 03314-2 ####[facility] LABCLIA [id number] [place] [address] [place] Differential cell count method Nom (Bld)AutoNormalCMercy Health Urbana Hospital Comment on above:Order Comment: Specimen Type: BLOOD SPECIMENOrdering Facility: [facility] Address:[address] [place] [address] Performed By: #### 03379-5 ####[facility] LABCLIA [id number] [place] [id number] [place] Eosinophils (Bld) [#/Vol]10*3/uLNormal<0.46[facility] on above:Order Comment: Specimen Type: BLOOD SPECIMENOrdering Facility: [facility] Address:[address] [place], [place] [address]Performed By: #### 31421-6 ####[facility] LABCLIA [id number] [place] [id number] [place] AMERICAEosinophils/100 WBC (Bld)0.2 %NormalUniversity Hospitals Health System on above:Order Comment: Specimen Type: BLOOD SPECIMENOrdering Facility: [facility] Address:[address] [place], [place] [address]Performed By: #### 01729-9 ####[facility] HOSPITALIA [id number] [place] [address] [place] AMERICAErythrocyte distribution width (RBC) [Ratio]13.6 %Nbdikt36.5-15.0[facility] on above: Order Comment: Specimen Type: BLOOD SPECIMENOrdering Facility: [facility] Address:[address] [place], [place] [address]Performed By: #### 62633- 8 ####[facility] HOSPITALIA [id number] [place] [address] [place] AMERICAHematocrit (Bld) [Volume fraction]30.2 %Low36.0-46.0[facility] on above:Order Comment: Specimen Type: BLOOD SPECIMENOrdering Facility: [facility] Address:[address] [place], [place] [address]Performed By: #### 42883- 8 ####[facility]OSPITALIA [id number] [place] [address] [place] AMERICAHemoglobin (Bld) [Mass/Vol]10.0 g/dLLow11.5-15.5CHolmes County [facility] on above:Order Comment: Specimen Type: BLOOD SPECIMENOrdering Facility: [facility] Address:[address] [place], [place] [address]Performed By: #### 09582-8 ####[facility] [id number] [place] [address] [place] AMERICAImmature granulocytes (Bld) [#/Vol]0.04 10*3/uLNormal<0.10[facility] on above:Order Comment: Specimen Type: BLOOD SPECIMENOrdering Facility: [facility] Address:[address] [place], [place] [address]Performed By: #### 40272- 8 ####[facility] LABCLIA [id number] [place] [address] [place] AMERICAImmature granulocytes/100 WBC (Bld)0.5 %NormalUniversity Hospitals Health System on above:Order Comment: Specimen Type: BLOOD SPECIMENOrdering Facility: [facility] Address:[address] [place], [place] [address]Performed By: #### 02790-0 ####[facility] [id number] [place] [address] [place] AMERICALymphocytes (Bld) [#/Vol]0.83 10*3/uLLow1.00-4.00[facility] on above:Order Comment: Specimen Type: BLOOD SPECIMENOrdering Facility: [facility] Address:[address] [place], [place] [address]Performed By: #### 85900-0 ####[facility] [id number] [address] STATES [facility] CHILDREN'S HOSPITALLymphocytes/100 WBC (Bld)9.9 % NormalUniversity Hospitals Health System on above:Order Comment: Specimen Type: BLOOD SPECIMENOrdering Facility: [facility] Address:[address] [place], [place] [address]Performed By: #### 12814-3 ####[facility] [id number] [place] [address] [place] AMERICAMCH (RBC) [Entitic mass]29.8 ztXncqaq26.0-34.0[facility] on above:Order Comment: Specimen Type: BLOOD SPECIMENOrdering Facility: [facility] Address:[address] [place], [place] [address]Performed By: #### 41295-0 ####[facility] [id number] [place] [address] [place] MCHC (RBC) [Mass/Vol]33.1 g/hILjcise92.5-36.0[facility] on above:Order Comment: Specimen Type: BLOOD SPECIMENOrdering Facility: [facility] Address:[address] [place] [address] Performed By: #### 68447-3 ####[facility] [id number] [place] [address] [place] MCV (RBC) [Entitic vol]89.9 nITiemip06.0-100.0[facility] on above:Order Comment: Specimen Type: BLOOD SPECIMENOrdering Facility: [facility] Address:[address] [place] [address] Performed By: #### 89921-9 ####[facility] [id number] [place] [address] [place] Monocytes (Bld) [#/Vol]0.74 10*3/uLNormal<0.87[facility] on above:Order Comment: Specimen Type: BLOOD SPECIMENOrdering Facility: [facility] Address:[address] [place] [address] Performed By: #### 08305-9 ####[facility] [id number] [place] [address] [place] Monocytes/100 WBC (Bld)8.8 %NormalUniversity Hospitals Health System on above: Order Comment: Specimen Type: BLOOD SPECIMENOrdering Facility: [facility] Address:[address] [place], [place] [address]Performed By: #### 29864- 8 ####[facility] [id number] [place] [address] [place] AMERICANeutrophils (Bld) [#/Vol]6.77 10*3/uLNormal1.45-7.50[facility] on above:Order Comment: Specimen Type: BLOOD SPECIMENOrdering Facility: [facility] Address:[address] [place], [place] [address]Performed By: #### 37488-6 ####[facility] [id number] [place] [address] [place] AMERICANeutrophils/100 WBC (Bld)80.5 % NormalWood County HospitalComment on above:Order Comment: Specimen Type: BLOOD SPECIMENOrdering Facility: [facility] Address:[address] [place], [place] [address]Performed By: #### 76403-3 ####[facility] [id number] [place] [address] [place] AMERICANucleated RBC (Bld) [#/Vol]10*3/uLNormal<0.01[facility] on above:Order Comment: Specimen Type: BLOOD SPECIMENOrdering Facility: [facility] Address:[address] [place], [place] [address]Performed By: #### 35013-0 ####[facility]ITALIA [id number] [place] [address] [place] Nucleated RBC/100 WBC (Bld) [Ratio]0.0 /100 WBCNormalCMercy Health [facility]ana Hospital Comment on above:Order Comment: Specimen Type: BLOOD SPECIMENOrdering Facility: [facility] Address:[address] [place] [address] Performed By: #### 23642-1 ####[facility] [id number] [place] [id number] [place] Platelet mean volume (Bld) [Entitic vol]11.0 fLNormal9.0-12.7ClevelCentral Carolina HospitalComup health system on above:Order Comment: Specimen Type: BLOOD SPECIMENOrdering Facility: [facility] Address:[address] [place], [place] [address]Performed By: #### 73166-5 ####[facility] [id number] [place] [address] [place] Platelets (Bld) [#/Vol]179 10*3/fACtdiky122-497LzwnppnbyUniversity Hospitals Health System on above:Order Comment: Specimen Type: BLOOD SPECIMENOrdering Facility: [facility] Address:[address] [place] [address] Performed By: #### 57373-0 ####[facility] LABCL[facility] [id number] [place] [address] [place] RBC (Bld) [#/Vol]3.36 10*6/uLLow3.90-5.20[facility] on above:Order Comment: Specimen Type: BLOOD SPECIMENOrdering Facility: [facility] Address:[address] [place], [place] [address]Performed By: #### 60595-8 ####[facility] LABCL[facility] [id number] [place] [address] [place] AMERICAWBC (Bld) [#/Vol]8.41 10*3/uLNormal3.70-11.00[facility] on above:Order Comment: Specimen Type: BLOOD SPECIMENOrdering Facility: [facility] [facility] Address:[address] [place], [place] [address]Performed By: #### 28403-4 ####[facility] LABCLIA [id number] [place] [address] [place] OF AMERICACONSULTon 11-61-9280SXGDZUTTugdgg Wood County HospitalCR SerPl-mCncon 99-69-5103TNK [Mass/Vol]10.7 mg/dL High<0.9CHolmes County [facility] on above:Order Comment: Specimen Type: BLOOD SPECIMENOrdering Facility: [facility] Address:[address] [place], [place] [address]Performed By: #### 1988-5, 1751-7, 26390-6, 69353-9 ####[facility] LABCLIA [id number] [place] [id number] [place] OF AMERICAMagnesium SerPl-mCncon 40-41-1918Jchyzeggw [Mass/Vol]1.7 mg/dLNormal1.7-2.3CMercy Health Urbana Hospital Comment on above:Order Comment: Specimen Type: BLOOD SPECIMENOrdering Facility: [facility] Address:[address] [place] [address] Performed By: #### 1988-5, 1751-7, 03799-8, 97436-0 ####[facility] LABCL[facility] [id number] [place] [address] [place] OF AMERICANUTRITIONon 53-80-9513RVMZKVARPZvammmIfqmnglao Clinic [place] Phosphate SerPl-mCncon 56-29-3704Gtqoouonq [Mass/Vol]2.7 mg/dLNormal2.7-4.8 [facility] HospitalComment on above:Order Comment: Specimen Type: BLOOD SPECIMENOrdering Facility: [facility] Address:[address] [place], [place] [address]Performed By: #### 2777-1 ####[facility] LABCL[facility] [id number] [place] [address] [place] OF AMERICAXR CHEST 1V FRONTAL PORTon 62-96-5959GV CHEST 1V FRONTAL PORTNormal [facility] POSTPROC EVALon 49-38-1509RCFC POSTPROC EVAL NormalWood County HospitalANES PRE-OPon 71-64-9428JGWT PRE-OPNormal [facility] County HospitalBRIEF OP NOTon 08-97-1957DQXZS OP NOTNormalCMercy Health Urbana HospitalCNPNon 89-52-9467CNILNmxnlxCqwvzrqng Clinic ClevelandHISTORY PHYSICALon 28-73-6109EZKJALF PHYSICALNormalCMercy Health Urbana HospitalNURSING PROGon 50-28-0859WYNWIVV PROGNormalWood County HospitalOPERATIVE NOon 23-77-4351IKVOCRXDP NONormalWood County HospitalPathology biopsy report Eliu (Tiss)on [id number] DISCLAIMERNormalCMercy Health Urbana HospitalComment on above:Order Comment: Specimen Type: TISSUE SPECIMENOrdering Facility: [facility] Address: [address] [place] [address] 14[address]Eeexuv Comment: Laboratory Developed Test (LDT) Disclaimer:Performance characteristics of immunohistochemical, immunofluorescent, and chromogenic in-situ hybridization tests have been determined by the performing laboratory within [facility]'s [facility] Pathology and Laboratory Medicine Department ([facility], [facility], [facility], [facility], [facility], [facility], or [facility]) in a manner consistent with CLIA requirements. One or more of these tests may not have been cleared or approved by the FDA. RT-PLM is regulated under CLIA as qualified to perform high-complexity testing. These tests are used for clinical purposes. These should not be regarded as investigational or for research. Positive and negative controls stain appropriately.Performed By: #### 16498-1 ####[facility] [id number] [address] STATES OF [facility] HOSPITALCASE REPORTNormal [facility] on above:Order Comment: Specimen Type: TISSUE SPECIMENOrdering Facility: [facility] Address: [address] [place], [place] [address]Result Comment: Surgical Pathology Report Case: [id number] Provider: Elsy Rousseau DO Collected: 02/15/2025 12:06 PMOrdering Location: Admitting Received: 02/15/2025 02:18 PMPathologist: Madhuri Acosta MDSpecimens: A) - Small Bowel, Ileostomy, bearing ileostomy B) - Colon, ResectionPerformed By: #### 72579-6 ####[facility] LABIA [id number] [place] [id number] [facility] OF [facility] CLINICAL HISTORYNormalCHolmes County [facility] on above:Order Comment: Specimen Type: TISSUE SPECIMENOrdering Facility: [facility] Address: [address] [place] [address]Yeuqvz Comment: Pre-op diagnosis:Crohn's disease of small and large intestines with complication (HCC) [K50.819]Performed By: #### 23780-3 ####[facility] LABCLIA [id number] [place] [id number] [facility] FINAL DIAGNOSISMorrow County Hospital on above:Order Comment: Specimen Type: TISSUE SPECIMENOrdering Facility: [facility] Address: [address] [place], [place] [address]Result Comment: A. Small Bowel, Ileostomy:- Segment of small bowel with intact enterocutaneous anastomosis with superficial erosions and post-surgical mural changes, consistent with ileostomy site changesB. Colon, Resection:- Chronic active enteritis with granulomatous inflammation, fibromuscular thickening of the submucosa and dense fibrous adhesions; consistent with Crohn disease- Negative for dysplasia- Benign reactive pericolic lymph nodes, three with non-necrotizing epithelioid granulomas at 1708 EDT Performed By: #### 43922-5 ####[facility] LABCLIA [id number] [place] [id number] [facility] FINAL PERFORMING LABMorrow County Hospital on above:Order Comment: Specimen Type: TISSUE SPECIMENOrdering Facility: [facility] Address: [address] [place], [place] [address]Result Comment: Diagnostic interpretation performed at: [facility], [address] [place] [address], [address] [address] CLIA# [id number] Director: Krunal Morganformed By: #### 35810-3 ####[facility] LABCL[facility] [id number] [address] [address] [place] STATES OF AMERICAGROSS DESCRIPTIONMorrow County Hospital on above:Order Comment: Specimen Type: TISSUE SPECIMENOrdering Facility: [facility] Address: [address] [place], [place] [address]Result Comment: A. Small Bowel, IleostomyFresh designated ileostomy is an ostomy specimen that measures 3.6 cm in length and 3.5 cm in diameter. Both ends are open. Surrounding one end is a gutierrez-hyde rim of skin. Mucosa slightly prolapsed at the ostomy site. The bowel is opened to reveal pink-gutierrez mucosa, showing normal mucosal folds. Mailing Machine Operator sections are submitted in 1 cassette.WE February 15, 2025 3:25 PMGross examination performed at [facility], [facility]0 [place] [id number]. Colon, ResectionReceived fresh designated colon resection is an unoriented segment of large bowel that measures 5 cm in length and 7 cm in circumference. The serosal surface is ragged and slightly dusky. There is an area of outpouching present. The bowel is opened to reveal pink-gutierrez,slightly granular mucosa. A staple line is present. The wall thickness is 0.5 cm. There are no masses or lesions identified. Mailing Machine Operator sections are submitted as follows:B1. Margin 1 perpendicular inked orange and margin 2 perpendicular inked blueB2. Staple lineB3. Bowel at area of outpouchingB4-B5. Bowel full-thickness on each side of the staple lineB6. Three intact lymph nodesWE February 15, 2025 3:23 PMGross examination performed at [facility], [facility]0 [facility] [place] [address]\Performed By: #### 54698-0 ####[facility] LABCL[facility] [id number] [place] [address] [place] CBC panel Auto (Bld)on 15-14-1424Yoesrcestsm distribution width (RBC) [Ratio] 13.2 %11.5 - 15.0 %[facility] CenterHematocrit (Bld) [Volume fraction]36.1 %36.0 - 46.0 %[facility] CenterHemoglobin (Bld) [Mass/Vol]11.9 g/dL11.5 - 15.5 g/dL [facility] CenterInterpretation and review of laboratory resultsNormalCSalem Regional Medical CenterH (RBC) [Entitic mass]29.5 pg26.0 - 34.0 pgClevelFederal Correction Institution HospitalHC (RBC) [Mass/Vol]33.0 g/dL30.5 - 36.0 g/dLMercy Health Kings Mills HospitalV (RBC) [Entitic vol]89.4 fL80.0 - 100.0 fLCleveland ClinicNucleated RBC (Bld) [#/Vol]NINFCCorey Hospital Platelet mean volume (Bld) [Entitic vol]11.4 fL9.0 - 12.7 [facility] Platelets (Bld) [#/Vol]207 10*3/[facility] HospitalRBC (Bld) [#/Vol]4.04 10*6/uL 3.90 - 5.20 m/[facility] Community HospitalWBC (Bld) [#/Vol]5.67 10*3/Mercy HealthErythrocyte distribution width (RBC) [Ratio]13.2 %Normal 11.5-15.0[facility] on above:Order Comment: Specimen Type: BLOOD SPECIMENOrdering Facility: [facility] Address:[address] [place], [place] [address]Performed By: #### 11933-4 ####[facility] [id number] [place] [address] STATES OF [facility] VALLEY HOSPITALHematocrit (Bld) [Volume fraction]36.1 %Nkxwvg18.0-46.0 [facility] on above:Order Comment: Specimen Type: BLOOD SPECIMENOrdering Facility: [facility] Address:[address] [place], [place] [address]Performed By: #### 96041-1 ####[facility] [id number] [place] [address] [place] OF AMERICAHemoglobin (Bld) [Mass/Vol]11.9 g/nGRgfemh13.5-15.5CHolmes [facility] on above:Order Comment: Specimen Type: BLOOD SPECIMENOrdering Facility: [facility] Address:[address] [place], [place] [address]Performed By: #### 31017-0 ####[facility] [id number] [place] [address] [place] OF AMERICAMCH (RBC) [Entitic mass]29.5 omGsqrsm47.0-34.0[facility] Comment on above:Order Comment: Specimen Type: BLOOD SPECIMENOrdering Facility: [facility] Address:[address] [place] [address] Performed By: #### 45239-5 ####[facility] [id number] [address]ETMCHC (RBC) [Mass/Vol]33.0 g/gIVzndvi66.5-36.0[facility] on above: Order Comment: Specimen Type: BLOOD SPECIMENOrdering Facility: [facility] Address:[address] [place], [place] [address]Performed By: #### 33473- 2 ####[facility] [id number] [address]ETMCV (RBC) [Entitic vol]89.4 fLNormal 80.0-100.0Kettering Health Springfieldment on above:Order Comment: Specimen Type: BLOOD SPECIMENOrdering Facility: [facility] Address:[address] [place], [place] [address]Performed By: #### 42565-9 ####[facility] [id number] [place], [place] [address]ucleated RBC (Bld) [#/Vol]10*3/uLNormal<0.01[facility] on above:Order Comment: Specimen Type: BLOOD SPECIMENOrdering Facility: [facility] Address:[address] [place], [place] [address]Performed By: #### 74733-3 ####[facility] [id number] [place], [place] [address]Platelet mean volume (Bld) [Entitic vol]11.4 fLNormal9.0-12.7CHolmes [facility] on above:Order Comment: Specimen Type: BLOOD SPECIMENOrdering Facility: [facility] Address:[address] [place], [place] [address]Performed By: #### 47914-6 ####[facility] [id number] [address]REETPlatelets (Bld) [#/Vol]207 10*3/iJHfexcv810-142UsxaxhlivWood County Hospital Comment on above:Order Comment: Specimen Type: BLOOD SPECIMENOrdering Facility: [facility] Address:[address] [place] [address] Performed By: #### 14501-5 ####[facility] [id number] [address] ([facility]) [#/Vol]4.04 10*6/uLNormal3.90-5.20[facility] County HospitalComment on above: Order Comment: Specimen Type: BLOOD SPECIMENOrdering Facility: [facility] Address:[address] [place], [place] [address]Performed By: #### 81605- 2 ####[facility] [id number] [address] ([facility]) [#/Vol]5.67 10*3/uLNormal 3.70-11.00[facility] County HospitalComment on above:Order Comment: Specimen Type: BLOOD SPECIMENOrdering Facility: [facility] Address:[address] [place], [place] [address]Performed By: #### 05153-7 ####[facility] [id number] [place] [address] [place] AMERICACNCNPATEDon 58-44-3499XJMCOQYMVVjtqrxCuktrejwa [facility] Comprehensive metabolic 2000 panelon 18-92-8400Dvdujhp [Mass/Vol]4.4 g/dL3.9 - 4.9 g/dLBoca Raton ClinicALP [Catalytic activity/Vol]95 U/L34 - 123 U/LClevelformerly [facility] ClinicALT [Catalytic activity/Vol]38 U/L7 - 38 U/LC[place] ClinicAnion gap [Moles/Vol]10 mmol/L8 - 15 mmol/LC[place] ClinicAST [Catalytic activity/Vol]32 U/L13 - 35 U/LC[place] ClinicBilirubin [Mass/Vol]0.4 mg/dL0.2 - 1.3 mg/dL [place] ClinicCalcium [Mass/Vol]9.4 mg/dL8.5 - 10.2 mg/dLUniversity [facility] Chloride [Moles/Vol]103 mmol/L98 - 107 mmol/LCleveland ClinicCO2 [Moles/Vol]26 mmol/L22 - 30 mmol/LC[place] ClinicCreatinine [Mass/Vol]0.58 mg/dL0.58 - 0.96 mg/dLUniversity Hospitals Geneva Medical CenterGFR/1.73 sq M.predicted among non-blacks MDRD (S/P/Bld) [Vol rate/Area]120 mL/min/{1.73_m2}- PINFCleveland ClinicComment on above: Estimated Glomerular Filtration Rate (eGFR) is calculated using the 2020 CKD-EPI creatinine equation. This equation utilizes serum creatinine, sex, and age as parameters. The creatinine assay has traceable calibration to isotope dilution- mass spectrometry. Refer to KDIGO guidelines for clinical interpretation. In patients with unstable renal function, e.g. those with acute kidney injury, the eGFRmay not accurately reflect actual GFR.Glucose [Mass/Vol]96 mg/dL74 - 99 mg/dLUniversity Hospitals Geneva Medical CenterComment on above:The [place] Diabetes Association (ADA) provides guidance for cutoff values for fasting glucose andrandom glucose. The ADA defines fasting as no caloric intake for at least 8 hours. Fasting plasma gl ucose results between 100 to 125 mg/dL indicate [...] Standards of Medical Care in Diabetes 2016, [place] Diabetes Association. Diabetes Care. 2016.39(Suppl 1). Interpretation and review of laboratory resultsAbnormalCleveland ClinicPotassium [Moles/Vol]4.5 mmol/L3.7 - 5.1 mmol/LCnewark hospital ClinicProtein [Mass/Vol]7.6 g/dL 6.3 - 8.0 g/dLProMedica Toledo Hospitalodium [Moles/Vol]139 mmol/L136 - 144 mmol/L [facility] CenterUrea nitrogen [Mass/Vol]24 mg/dLHigh7 - 21 mg/dLUniversity [facility]als [facility] Albumin [Mass/Vol]4.4 g/dLNormal3.9-4.9CMercy Health Urbana HospitalComment on above:Order Comment: Specimen Type: BLOOD SPECIMENOrdering Facility: [facility] Address:[address] [place], [place] [address]Performed By: #### 03754-1, 41147-4, 2776-07 ####[facility] [id number] [place] [address] [place] AMERICAALP [Catalytic activity/Vol]95 U/NEsuckp15-228BptqnzyymUniversity Hospitals Health System on above:Order Comment: Specimen Type: BLOOD SPECIMENOrdering Facility: [facility] Address:[address] [place], [place] [address]Performed By: #### 01827- 8, 38486-3, 2776-07 ####[facility] [id number] [place] [address] [place] AMERICAALT [Catalytic activity/Vol]38 U/LNormal7-38[facility] on above:Order Comment: Specimen Type: BLOOD SPECIMENOrdering Facility: [facility] Address:[address] [place], [place] [address]Performed By: #### 91514- 8, 74331-7, 2776-07 ####[facility] [id number] [place] [address] [place] AMERICAAnion gap [Moles/Vol] 10 mmol/LNormal8-15[facility] on above:Order Comment: Specimen Type: BLOOD SPECIMENOrdering Facility: [facility] Address:[address] [place], [place] [address]Performed By: #### 07734-5, 37639-4, 2776- ####[facility] [id number] [place] [address] [place] AMERICAAST [Catalytic activity/Vol]32 U/RYunear59-05VlavucsbmUniversity Hospitals Health System on above:Order Comment: Specimen Type: BLOOD SPECIMENOrdering Facility: [facility] Address:[address] [place], [place] [address]Performed By: #### 24325-7, 68511-4, 2776-07 ####[facility] [id number] [place] [address] [place] AMERICABilirubin [Mass/Vol]0.4 mg/dL Normal0.2-1.3CHolmes [facility] on above:Order Comment: Specimen Type: BLOOD SPECIMENOrdering Facility: [facility] Address:[address] [place], [place] [address]Performed By: #### 19816-4, 58569-2, 2776-07 ####[facility] [id number] [place] [address] [place] AMERICACalcium [Mass/Vol]9.4 mg/dLNormal 8.5-10.2CHolmes [facility] on above:Order Comment: Specimen Type: BLOOD SPECIMENOrdering Facility: [facility] Address:[address] [place], [place] [address]Performed By: #### 66428-5, 19165-3, 2776-07 ####[facility] [id number] [place] [address] [place] AMERICAChloride [Moles/Vol]103 mmol/L Xeuybm28-565DfssgdrvtUniversity Hospitals Health System on above:Order Comment: Specimen Type: BLOOD SPECIMENOrdering Facility: [facility] Address:[address] [place], [place] [address]Performed By: #### 96473-2, , 2776-07 ####[facility] [id number] [place] [address] [place] AMERICACO2 [Moles/Vol]26 mmol/LNormal 22-30[facility] on above:Order Comment: Specimen Type: BLOOD SPECIMENOrdering Facility: [facility] Address:[address] [place], [place] [address]Performed By: #### 44703-7, , 2776-07 ####[facility] [id number] [place] [address] [place] AMERICACreatinine [Mass/Vol]0.58 mg/dLNormal0.58-0.96[facility] on above:Order Comment: Specimen Type: BLOOD SPECIMENOrdering Facility: [facility] Address:[address] [place], [place] [address]Performed By: #### 44264-1, , 2776-07 ####[facility] [id number] [place] [address] [place] AMERICAeGFRcr SerPlBld CKD-EPI 7908635 mL/min/1.73m???Normal>=60 [facility] on above:Order Comment: Specimen Type: BLOOD SPECIMENOrdering Facility: [facility] Address:[address] [place], [place] [address]Result Comment: Estimated Glomerular Filtration Rate (eGFR) is calculated using the 2020 CKD-EPI creatinine equation. This equation utilizes serum creatinine, sex, and age as parameters. The creatinine assay has traceable calibration to isotope dilution-mass spectrometry. Refer to KDIGO guidelines for clinical interpretation. In patients with unstable renal function, e.g. those with acute kidney injury, the eGFR may not accurately reflect actual GFR.Performed By: #### 82162-9, 65561-5, 2776-07 ####[facility] [id number] [place] [id number] [place] AMERICAGlucose [Mass/Vol]96 mg/gYLlastj12-90PxkooxltlUniversity Hospitals Health System on above:Order Comment: Specimen Type: BLOOD SPECIMENOrdering Facility: [facility] Address:[address] [place], [place] [address]Result Comment: The [place] Diabetes Association (ADA) provides guidance for cutoff values for fasting glucose and random glucose. The ADA defines fasting as no caloric intake for at least 8 hours. Fasting plasma glucose results between 100 to 125 mg/dL indicate increased risk for diabetes (prediab etes).Fasting plasma glucose results greater than or equal to 126 mg/dL meet the criteria for diagnosis of diabetes. In the absence of unequivocal hyperglycemia, results should be confirmed by repeattesting. In a patient with classic symptoms of hyperglycemia or hyperglycemic crisis, random plasmaglucose results greater than or equal to 200 mg/dL meet the criteria for diagnosis of diabetes.Reference: Standards of Medical Care in Diabetes 2016, [place] Diabetes Association. Diabetes Care. 2016.39(Suppl 1).Performed By: #### 12829- 8, 84409-3, 2776- ####[facility] [id number] [place] [address] [place] AMERICAPotassium [Moles/Vol] 4.5 mmol/LNormal3.7-5.1CHolmes County [facility] on above:Order Comment: Specimen Type: BLOOD SPECIMENOrdering Facility: [facility] Address:[address] [place], [place] [address]Performed By: #### 18664-9, 35519-3, 2776-07 ####[facility] [id number] [place] [address] [place] AMERICAProtein [Mass/Vol]7.6 g/dLNormal 6.3-8.0[facility] on above:Order Comment: Specimen Type: BLOOD SPECIMENOrdering Facility: [facility] Address:[address] [place], [place] [address]Performed By: #### 92620-5, 87701-7, 7- ####[facility] [id number] [place] [address] [place] AMERICASodium [Moles/Vol]139 mmol/PCcdedc965-482NwnafztvcUniversity Hospitals Health System on above:Order Comment: Specimen Type: BLOOD SPECIMENOrdering Facility: [facility] Address:[address] [place], [place] [address]Performed By: #### 59901-9, 82587-6, 2777-1 ####[facility] [id number] [place] [address] [place] AMERICAUrea nitrogen [Mass/Vol]24 mg/dLHigh7-21[facility] on above:Order Comment: Specimen Type: BLOOD SPECIMENOrdering Facility: [facility] Address:[address] [place], [place] [address]Performed By: #### 36910-2, 45441-8, 2777-1 ####[facility] [id number] [place] [address] [place] AMERICAHISTORY PHYSICALon 39-72-2106GPYWBGL PHYSICALNormalCMercy Health Urbana HospitalMAGNESIUMon 66-99-2290Ootxmwgkn [Mass/Vol]2.2 mg/dL1.7 - 2.3 mg/dL [facility] Medical CenterMagnesium SerPl-mCncon 66-03-2770Hnvsujdrz [Mass/Vol]2.2 mg/dL Normal1.7-2.3CHolmes County [facility] on above:Order Comment: Specimen Type: BLOOD SPECIMENOrdering Facility: [facility] Address:[address] [place], [place] [address]Performed By: #### 91554-8, 35420-9, 2777-1 ####[facility] [id number] [place] [address] [place] AMERICANo Panel Informationon 02-14-2025 Interpretation and review of laboratory resultsNormalCOhioHealth Arthur G.H. Bing, MD, Cancer CenterPHOSPHORUS INORGANICon 88-36-9842Gqlpypuut [Mass/Vol]4.3 mg/dL2.7 - 4.8 mg/dLUniversity Hospitals Geneva Medical CenterPhosphate SerPl-mCncon 36-26-3432Qffiviszq [Mass/Vol]4.3 mg/dLNormal2.7-4.8CHolmes County [facility] on above:Order Comment: Specimen Type: BLOOD SPECIMENOrdering Facility: [facility] Address:[address] [place], [place] [address]Performed By: #### 98612-0, 90452-6, 2777-1 ####[facility] [id number] [place] [address] [place] AMERICARF Colon Views W barium contrast PRon 93-28-8756AZACDAVGNU: NO LEAK. Pyrotechnist: EPIFANIO Transcribe Date/Time: Feb 14 2025 11:46A Dictated by : FRANCINE STAFFORD MD This examination was interpreted and the report reviewed and electronically signed by: ARTHUR MARMOLEJO MD on Feb 14 2025 11:55AM [facility] DIVISION OF RADIOLOGY* * *Final Report* * * DATE OF [...] 2:06 (min:sec). Air kerma: 78.6 mGy. RESULT: Meat And Poultry Inspector: No dilated bowel in the included field [...] the remainder of the procedure. DIVISION OF RADIOLOGYProvider, [facility] [place] - 02/14/[facility]25 * * *Final Report* * [...] 2:06 (min:sec). Air kerma: 78.6 mGy. RESULT: Meat And Poultry Inspector: No dilated bowel in the included field [...] of the procedure. IMPRESSION IMPRESSION: NO LEAK. Pyrotechnist: [facility] Transcribe Date/Time: Feb 14 2025 11:46A Dictated by : FRANCINE STAFFORD MD This examination was interpreted and the report reviewed and electronically signed by: ARTHUR MARMOLEJO MD on Feb 14 2025 11:55AM EST [facility] CenterRadiology Study observation (narrative)[facility] CenterRF Colon Views W barium contrast PROrdered By: [facility] Provider on 93-57-0973Hcxlfkcvg Clinic XR COLON SINGLE CONTRASTon 83-05-6348OS COLON SINGLE CONTRASTNormalCCleveland Clinic Lutheran HospitalvelandCNPNon 55-73-1852RFUMRbedhvOdgownlko Clinic ClevelandCBC panel Auto (Bld)on 17-11-6896Dqtvzapcckm distribution width (RBC) [Ratio]13.6 %Normal 11.5-15.0Wood County HospitalComment on above:Order Comment: Specimen Type: BLOOD SPECIMENOrdering Facility: [facility] Address:[address], [place] [address]Performed By: #### 63863-9 ####[facility] LABCLIA [id number] [place] [address] Hematocrit (Bld) [Volume fraction]35.8 %Low36.0-46.0[facility] Comment on above:Order Comment: Specimen Type: BLOOD SPECIMENOrdering Facility: [facility] Address:[address] [place] [address] Performed By: #### 90487-3 ####[facility] LABCLIA [id number] [place], [place] [address]Umeraisqpa (Bld) [Mass/Vol]12.1 g/zPOyiyam29.5-15.5CMercy Health Urbana HospitalComment on above:Order Comment: Specimen Type: BLOOD SPECIMENOrdering Facility: [facility] Address:[address] [place], [place] [address]Performed By: #### 70157-1 ####[facility] LABCLIA [id number] [place], [place] [address]FTA (RBC) [Entitic mass]30.3 sxTyqubg56.0-34.0[facility] County HospitalComment on above:Order Comment: Specimen Type: BLOOD SPECIMENOrdering Facility: [facility] Address:[address] [place], [place] [address]Performed By: #### 47078-5 ####[facility] LABCLIA [id number] [place], [place] [address]GZBO (RBC) [Mass/Vol]33.8 g/zSFcxllu14.5-36.0[facility] County HospitalComup health system on above: Order Comment: Specimen Type: BLOOD SPECIMENOrdering Facility: [facility] Address:[address] [place], [place] [address]Performed By: #### 65023- 2 ####[facility] LABCLIA [id number] [place], [place] [address]WUQ (RBC) [Entitic vol]89.7 vAAyjmea74.0-100.0[facility] on above:Order Comment: Specimen Type: BLOOD SPECIMENOrdering Facility: [facility] Address:[address] [place], [place] [address]Performed By: #### 32403-3 ####[facility] LABCLIA [id number] [place], [place] [address]Mmsddnrjw RBC (Bld) [#/Vol]10*3/uLNormal<0.01[facility] on above:Order Comment: Specimen Type: BLOOD SPECIMENOrdering Facility: [facility] Address:[address] [place], [place] [address]Performed By: #### 52623- 2 ####[facility] LABCLIA [id number] [place], [place] [address]Eqhoeqrm mean volume (Bld) [Entitic vol]11.7 fLNormal 9.0-12.7CHolmes [facility] on above:Order Comment: Specimen Type: BLOOD SPECIMENOrdering Facility: [facility] Address:[address] [place], [place] [address]Performed By: #### 34143-8 ####[facility] LABCLIA [id number] [place], [place] [address]Qxmdmhypa (Bld) [#/Vol]144 10*3/sONvg750-321MyzokdvxiUniversity Hospitals Health System on above: Order Comment: Specimen Type: BLOOD SPECIMENOrdering Facility: [facility] Address:[address] [place], [place] [address]Performed By: #### 52559- 2 ####[facility] LABCLIA [id number] [place], [place] [address]IQT (Bld) [#/Vol]3.99 10*6/uLNormal3.90-5.20[facility] on above:Order Comment: Specimen Type: BLOOD SPECIMENOrdering Facility: [facility] Address:[address] [place], [place] [address]Performed By: #### 17605-0 ####[facility] LABIA [id number] [place], [place] [address]FYP (Bld) [#/Vol]3.15 10*3/uLLow3.70-11.00[facility] on above:Order Comment: Specimen Type: BLOOD SPECIMENOrdering Facility: [facility] Address:[address] [place], [place] [address]Performed By: #### 42611- 2 ####[facility] LABCLIA [id number] [place], [place] [address]Ubuhzmiiiqlau metabolic 2000 panelon 10-31-1767Vbpypcg [Mass/Vol]3.8 g/dLLow3.9-4.9CHolmes [facility] on above:Order Comment: Specimen Type: BLOOD SPECIMENOrdering Facility: [facility] Address:[address] [place], [place] [address]Performed By: #### 2777- 1, , 62289-7 ####[facility] LABCLIA [id number] [place], [place] [address]CGI [Catalytic activity/Vol]77 U/LNormal 34-123[facility] on above:Order Comment: Specimen Type: BLOOD SPECIMENOrdering Facility: [facility] Address:[address] [place], [place] [address]Performed By: #### 2777-1, 09690-8, 87139-0 ####[facility] LABCLIA [id number] [place], [place] [address]HSQ [Catalytic activity/Vol]30 U/LNormal7-38[facility] on above:Order Comment: Specimen Type: BLOOD SPECIMENOrdering Facility: [facility] Address:[address] [place], [place] [address]Performed By: #### 2777-1, , ####[facility] LABCLIA [id number] [place], [place] [address]Cmapp gap [Moles/Vol]10 mmol/LNormal8-15[facility] on above:Order Comment: Specimen Type: BLOOD SPECIMENOrdering Facility: [facility] Address:[address] [place] [address] Performed By: #### 2777-1, , ####[facility] LABCLIA [id number] [place], [place] [address]HZM [Catalytic activity/Vol]26 U/PAbqaxw02-53NczkvgrfkUniversity Hospitals Health System on above:Order Comment: Specimen Type: BLOOD SPECIMENOrdering Facility: [facility] Address:[address] [place], [place] [address]Performed By: #### 2777- 1, , ####[facility]ERT[facility] LABCLIA [id number] [place], [place] [address]Yncnlraze [Mass/Vol]0.3 mg/dLNormal0.2-1.3 [facility] on above:Order Comment: Specimen Type: BLOOD SPECIMENOrdering Facility: [facility] Address:[address] [place], [place] [address]Performed By: #### 2777-1, , ####[facility]AT[facility] LABCLIA [id number] [place], [place] [address]Huygmyc [Mass/Vol]8.6 mg/dLNormal8.5-10.2CHolmes [facility] on above:Order Comment: Specimen Type: BLOOD SPECIMENOrdering Facility: [facility] Address:[address] [place] [address] Performed By: #### 2777-1, , ####[facility] LABCLIA [id number] [place], [place] [address]Uqjpppfk [Moles/Vol]105 mmol/LKcctgz34-012UlvloofkkWood County HospitalComment on above: Order Comment: Specimen Type: BLOOD SPECIMENOrdering Facility: [facility] Address:[address] [place] [address]Oaoxujfrh By: #### 2777- 1, , ####[facility] LABCLIA [id number] [place], [place] [address]RC7 [Moles/Vol]22 mmol/XQdarhl43-59GryfdlldhUniversity Hospitals Health System on above:Order Comment: Specimen Type: BLOOD SPECIMENOrdering Facility: [facility] Address:[address] [place], [place] [address]Performed By: #### 2777-1, , ####[facility] LABCLIA [id number] [place], [place] [address]Mergahgdfc [Mass/Vol]0.45 mg/dLLow0.58-0.96[facility] Comment on above:Order Comment: Specimen Type: BLOOD SPECIMENOrdering Facility: [facility] Address:[address] [place], [place] [address] Performed By: #### 2777-1, , ####[facility] LABCLIA [id number] [place], [place] [address]rVFIrt SerPlBld CKD-EPI 2834892 mL/min/1.73m???Normal>=60[facility] on above:Order Comment: Specimen Type: BLOOD SPECIMENOrdering Facility: [facility] Address:[address] [place], [place] [address]Result Comment: Estimated Glomerular Filtration Rate (eGFR) is calculated using the 2020 CKD-EPI creatinine equation. This equation utilizes serum creatinine, sex, and age as parameters. The creatinine assay has traceable calibration to isotope dilution- mass spectrometry. Refer to KDIGO guidelines for clinical interpretation. In patients with unstable renal function, e.g. those with acute kidney injury, the eGFR may not accurately reflect actual GFR.Performed By: #### 2777-1, , ####[facility] LABCLIA [id number] [place], [place] [address]Hmcsljc [Mass/Vol]106 mg/yKBkvr19-99GpwmuukztUniversity Hospitals Health System on above:Order Comment: Specimen Type: BLOOD SPECIMENOrdering Facility: [facility] Address:[address] [place] [address]Vvbhsr Comment: The [place] Diabetes [employer] (ADA) provides guidance for cutoff values for fasting glucose and random glucose. The ADA defines fasting as no caloric intake for at least 8 hours. Fasting plasma glucose results between 100 to 125 mg/dL indicate increased risk for diabetes (prediab etes).Fasting plasma glucose results greater than or equal to 126 mg/dL meet the criteria for diagnosis of diabetes. In the absence of unequivocal hyperglycemia, results should be confirmed by repeattesting. In a patient with classic symptoms of hyperglycemia or hyperglycemic crisis, random plasmaglucose results greater than or equal to 200 mg/dL meet the criteria for diagnosis of diabetes.Reference: Standards of Medical Care in Diabetes 2016, [place] [employer]. Diabetes Care. 2016.39(Suppl 1).Performed By: #### 2777-1, , ####[facility] LABCLIA [id number] [place], [place] [address]Hpiozammt [Moles/Vol]4.5 mmol/LNormal3.7-5.1 [facility] on above:Order Comment: Specimen Type: BLOOD SPECIMENOrdering Facility: [facility] Address:[address] [place], [place] [address]Jydhzhckk By: #### 2777-1, , ####[facility] LABCLIA [id number] [place], [place] [address]Mwqaftq [Mass/Vol]6.8 g/dLNormal6.3-8.0[facility] on above:Order Comment: Specimen Type: BLOOD SPECIMENOrdering Facility: [facility] Address:[address] [place] [address]Cbpuxmzio By: #### 2777-1, 58846-2, 08146-0 ####[facility] LABCLIA [id number] [place], [place] [address]Vgrjoa [Moles/Vol]137 mmol/L Gwzpij966-037AejtnltqaUniversity Hospitals Health System on above:Order Comment: Specimen Type: BLOOD SPECIMENOrdering Facility: [facility] Address:[address] [place], [place] [address]Performed By: #### 2777-1, , ####[facility] LABCLIA [id number] [place], [place] [address]Oasc nitrogen [Mass/Vol]19 mg/dLNormal7-21[facility] on above:Order Comment: Specimen Type: BLOOD SPECIMENOrdering Facility: [facility] Address:[address] [place], [place] [address]Performed By: #### 2777-1, , ####[facility] LABCLIA [id number] [place], [place] [address]Oupykfgal SerPl-mCncon 53-86-5695Rlvplqddy [Mass/Vol]2.1 mg/dLNormal1.7-2.3 [facility] on above:Order Comment: Specimen Type: BLOOD SPECIMENOrdering Facility: [facility] Address:[address] [place], [place] [address]Performed By: #### 2777-1, , ####[facility] LABCLIA [id number] [place], [place] [address]Aqtpdxvpn SerPl-mCncon 01-27-1590Zwmmqkuau [Mass/Vol]2.6 mg/dLLow2.7-4.8 [facility] on above:Order Comment: Specimen Type: BLOOD SPECIMENOrdering Facility: [facility] Address:[address] [place], [place] [address]Performed By: #### 2777-1, 89440-7, 79749-0 ####[facility] LABCLIA [id number] [place], [place] [address]([place])D3 [facility] 69[address]-mehiphpxjnknfw D3 [Mass/Vol]47.2 ng/mL Ndapla01.0-80.0[facility] County HospitalComment on above:Order Comment: Specimen Type: BLOOD SPECIMENOrdering Facility: [facility] Address:[address] [place], [place] [address]Hletvw Comment: Classification of 25 [place] Vitamin D status:Deficiency/Insufficiency: < or = 30 ng/m l.Sufficiency/Optimal Levels: 31-80 ng/mLToxicity: > 100 ng/mL.Test performed by chemiluminescent immunoassay.Performed By: #### 1989-3 ####[facility] LABCLIA [id number] [address] [address] [facility] HOSPITALCB panel Auto (Bld)on 90-16-6791Ejbkzguclqc distribution width (RBC) [Ratio]13.4 %11.5 - 15.0 %[facility] Medical CenterHematocrit (Bld) [Volume fraction]35.1 %Low36.0 - 46.0 %[facility] Medical CenterHemoglobin (Bld) [Mass/Vol]11.8 g/dL11.5 - 15.5 g/dLUniversity Hospitals Geneva Medical CenterInterpretation and review of laboratory resultsAbnormalCSalem Regional Medical CenterH (RBC) [Entitic mass]30.3 pg26.0 - 34.0 pgClevelFederal Correction Institution HospitalHC (RBC) [Mass/Vol]33.6 g/dL30.5 - 36.0 g/dLMercy Health Kings Mills HospitalV (RBC) [Entitic vol]90 fL80.0 - 100.0 fLCleveland ClinicNucleated RBC (Bld) [#/Vol]NINFClevelClermont County HospitalPlatelet mean volume (Bld) [Entitic vol]10.7 fL 9.0 - 12.7 fLCleveland ClinicPlatelets (Bld) [#/Vol]187 10*3/uLUniversity [facility]als [facility] Center RBC (Bld) [#/Vol]3.9 10*6/uL3.90 - 5.20 m/[facility]cy[facility] Community HospitalWBC (Bld) [#/Vol] 5.87 10*3/uLUC HealthErythrocyte distribution width (RBC) [Ratio]13.4 %Seubyb22.5-15.0[facility] on above:Order Comment: Specimen Type: BLOOD SPECIMENOrdering Facility: [facility] Address:[address] [place], [place] [address]Performed By: #### 03699- 2 ####[facility] LABIA [id number] [place], [place] [address]Ebrfzzokeo (Bld) [Volume fraction]35.1 %Low36.0-46.0 [facility] on above:Order Comment: Specimen Type: BLOOD SPECIMENOrdering Facility: [facility] Address:[address] [place], [place] [address]Performed By: #### 43318-1 ####[facility] LABIA [id number] [place], [place] [address]Wodxnowzyc (Bld) [Mass/Vol]11.8 g/vDKsivtz25.5-15.5CHol[facility] on above: Order Comment: Specimen Type: BLOOD SPECIMENOrdering Facility: [facility] Address:[address] [place], [place] [address]Performed By: #### 26346- 2 ####[facility] LABIA [id number] [place], [place] [address]EIQ (RBC) [Entitic mass]30.3 lvIhgktw09.0-34.0[facility] on above:Order Comment: Specimen Type: BLOOD SPECIMENOrdering Facility: [facility] Address:[address] [place], [place] [address]Performed By: #### 24164-3 ####[facility] LABIA [id number] [place], [place] [address]EOYX (RBC) [Mass/Vol]33.6 g/cCBcmukl62.5-36.0[facility] on above: Order Comment: Specimen Type: BLOOD SPECIMENOrdering Facility: [facility] Address:[address] [place], [place] [address]Performed By: #### 82427- 2 ####[facility] LABCLIA [id number] [place], [place] [address]IFI (RBC) [Entitic vol]90.0 vMSgcuqh70.0-100.0[facility] on above:Order Comment: Specimen Type: BLOOD SPECIMENOrdering Facility: [facility] Address:[address] [place], [place] [address]Performed By: #### 79097-2 ####[facility] LABCLIA [id number] [place], [place] [address]Kusscnmee RBC (Bld) [#/Vol]10*3/uLNormal<0.01[facility] on above:Order Comment: Specimen Type: BLOOD SPECIMENOrdering Facility: [facility] Address:[address] [place], [place] [address]Performed By: #### 88916- 2 ####[facility] LABCLIA [id number] [place], [place] [address]Ldvgporm mean volume (Bld) [Entitic vol]10.7 fLNormal 9.0-12.7CHolmes [facility] on above:Order Comment: Specimen Type: BLOOD SPECIMENOrdering Facility: [facility] Address:[address] [place], [place] [address]Performed By: #### 25011-7 ####[facility] LABCLIA [id number] [place], [place] [address]Coqjrfqul (Bld) [#/Vol]187 10*3/oFNbsifh070-636RyehommguUniversity Hospitals Health System on above: Order Comment: Specimen Type: BLOOD SPECIMENOrdering Facility: [facility] Address:[address] [place] [address]Iejgnkfyh By: #### 98236- 2 ####[facility] LABCLIA [id number] [place], [place] [address]WMA (Bld) [#/Vol]3.90 10*6/uLNormal3.90-5.20[facility] on above:Order Comment: Specimen Type: BLOOD SPECIMENOrdering Facility: [facility] Address:[address] [place] [address]Lmyzdyptw By: #### 36412-9 ####[facility] LABCLIA [id number] [place], [place] [address]AGW (Bld) [#/Vol]5.87 10*3/uLNormal3.70-11.00[facility] on above: Order Comment: Specimen Type: BLOOD SPECIMENOrdering Facility: [facility] Address:[address] [place] [address]Mdshejsjn By: #### 65275- 2 ####[facility] LABIA [id number] [place], [place] [address]Dthkfcgzvizod metabolic 2000 panelOrdered By: Philly Guallpa on 44-62-1172Ktxipvf [Mass/Vol]4.2 g/dL3.9 - 4.9 g/dLClesouthview medical center ClinicALP [Catalytic activity/Vol]91 U/L34 - 123 U/LCleveland ClinicALT [Catalytic activity/Vol]29 U/L7 - 38 U/LCleveland ClinicAnion gap [Moles/Vol]9 mmol/L8 - 15 mmol/LCleveland ClinicAST [Catalytic activity/Vol]24 U/L13 - 35 U/LCleveland ClinicBilirubin [Mass/Vol]0.6 mg/dL0.2 - 1.3 mg/dLClesouthview medical center ClinicCalcium [Mass/Vol]9.2 mg/dL8.5 - 10.2 mg/dLClesouthview medical center ClinicChloride [Moles/Vol]101 mmol/L98 - 107 mmol/LCleveland ClinicCO2 [Moles/Vol]25 mmol/L22 - 30 mmol/L [facility] CenterCreatinine [Mass/Vol]0.65 mg/dL0.58 - 0.96 mg/dLUniversity Hospitals Geneva [facility] Center GFR/1.73 sq M.predicted among non-blacks MDRD (S/P/Bld) [Vol rate/Area]116 mL/min/{1.73_m2}- PINFCCorey HospitalComment on above:Estimated Glomerular Filtration Rate (eGFR) is calculated using the 2020 CKD-EPI creatinine equation. This equation utilizes serum creatinine, sex, and age as parameters. The creatinine assay has traceable calibration to isotope dilution-mass spectrometry. Refer to KDIGO guidelines for clinical interpretation. In patients with unstable renal function, e.g. those with acute kidney injury, the eGFRmay not accurately reflect actual GFR.Glucose [Mass/Vol]110 mg/uRNfir16 - 99 mg/dL [facility] CenterComment on above:The [place] Diabetes Association (ADA) provides guidance for cutoff values for fasting glucose andrandom glucose. The ADA defines fasting as no caloric intake for at least 8 hours. Fasting plasma gl ucose results between 100 to 125 mg/dL indicate [...] Standards of Medical Care in Diabetes 2016, [place] [employer]. Diabetes Care. 2016.39(Suppl 1). Interpretation and review of laboratory resultsAbnormalCleveland ClinicPotassium [Moles/Vol]4.6 mmol/L3.7 - 5.1 mmol/LCleveland ClinicProtein [Mass/Vol]7 g/dL 6.3 - 8.0 g/dLBoca Raton ClinicSodium [Moles/Vol]135 mmol/ILyr723 - 144 mmol/L [facility] CenterUrea nitrogen [Mass/Vol]26 mg/dLHigh7 - 21 mg/dLUniversity Hospitals Geneva Medical Center Comprehensive metabolic 2000 panelon 04-28-8366Ksqeezd [Mass/Vol]4.2 g/dLNormal 3.9-4.9CHol[facility] on above:Order Comment: Specimen Type: BLOOD SPECIMENOrdering Facility: [facility] Address:[address] [place], [place] [address]Performed By: #### 2777-1, , ####[facility]AT[facility] LABCLIA [id number] [facility] MARY ELLENNORTHWEST [place] [address]MRC [Catalytic activity/Vol]91 U/KJzrlyu51-814HhkdqbswaUniversity Hospitals Health System on above:Order Comment: Specimen Type: BLOOD SPECIMENOrdering Facility: [facility] Address:[address] [place], [place] [address]Performed By: #### 2777-1, , ####[facility] LABCLIA [id number] [facility] [place], [place] [address]BGT [Catalytic activity/Vol]29 U/LNormal7-38[facility] Comment on above:Order Comment: Specimen Type: BLOOD SPECIMENOrdering Facility: [facility] Address:[address] [place] [address] Performed By: #### 2777-1, , ####[facility] LABCLIA [id number] [facility] MARY ELLENBAPTIST MED[facility] C[facility] [place]ASTEva[place], [place] [address]Lwyad gap [Moles/Vol]9 mmol/LNormal8-15[facility] on above:Order Comment: Specimen Type: BLOOD SPECIMENOrdering Facility: [facility] Address:[address] [place], [place] [id number] By: #### 2777- 1, , ####[facility] LABCLIA [id number] [facility] [place], [place] [address]JFK [Catalytic activity/Vol]24 U/LNormal 13-35[facility] on above:Order Comment: Specimen Type: BLOOD SPECIMENOrdering Facility: [facility] Address:[address] [place], [place] [address]Performed By: #### 2777-1, , ####[facility] LABCLIA [id number] [place], [place] [address]Xuaexqbum [Mass/Vol]0.6 mg/dLNormal0.2-1.3CHolmes [facility] on above:Order Comment: Specimen Type: BLOOD SPECIMENOrdering Facility: [facility] Address:[address] [place], [place] [address]Performed By: #### 2777-1, , ####[facility] LABCLIA [id number] [place], [place] [address]Rrggowg [Mass/Vol]9.2 mg/dLNormal8.5-10.2CHolmes [facility] on above:Order Comment: Specimen Type: BLOOD SPECIMENOrdering Facility: [facility] Address:[address] [place] [address] Performed By: #### 2777-1, , ####[facility] LABCLIA [id number] [place], [place] [address]Esdpajpi [Moles/Vol]101 mmol/RZzzsot91-181EvdyrzevhUniversity Hospitals Health System on above: Order Comment: Specimen Type: BLOOD SPECIMENOrdering Facility: [facility] Address:[address] [place], [place] [address]Performed By: #### 2777- 1, , ####[facility] LABCLIA [id number] [place], [place] [address]IA3 [Moles/Vol]25 mmol/ATkwcwf34-90IulnatufiUniversity Hospitals Health System on above:Order Comment: Specimen Type: BLOOD SPECIMENOrdering Facility: [facility] Address:[address] [place], [place] [address]Performed By: #### 2777-1, , ####[facility] LABCLIA [id number] [place], [place] [address]Kpkwnobpjb [Mass/Vol]0.65 mg/dLNormal0.58-0.96[facility] Comment on above:Order Comment: Specimen Type: BLOOD SPECIMENOrdering Facility: [facility] Address:[address] [place] [address] Performed By: #### 2777-1, , ####[facility] LABCLIA [id number] [place], [place] [address]rACCjf SerPlBld CKD-EPI 9377534 mL/min/1.73m???Normal>=60[facility] Springfieldment on above:Order Comment: Specimen Type: BLOOD SPECIMENOrdering Facility: [facility] Address:[address] [place], [place] [address]Result Comment: Estimated Glomerular Filtration Rate (eGFR) is calculated using the 2020 CKD-EPI creatinine equation. This equation utilizes serum creatinine, sex, and age as parameters. The creatinine assay has traceable calibration to isotope dilution- mass spectrometry. Refer to KDIGO guidelines for clinical interpretation. In patients with unstable renal function, e.g. those with acute kidney injury, the eGFR may not accurately reflect actual GFR.Performed By: #### 2777-1, , ####[facility] LABCLIA [id number] [place], [place] [address]Kkydhln [Mass/Vol]110 mg/qYKgmu16-22WayehtllpKettering Health Springfieldment on above:Order Comment: Specimen Type: BLOOD SPECIMENOrdering Facility: [facility] Address:[address] [place] [address]Makomf Comment: The [place] Diabetes Association (ADA) provides guidance for cutoff values for fasting glucose and random glucose. The ADA defines fasting as no caloric intake for at least 8 hours. Fasting plasma glucose results between 100 to 125 mg/dL indicate increased risk for diabetes (prediab etes).Fasting plasma glucose results greater than or equal to 126 mg/dL meet the criteria for diagnosis of diabetes. In the absence of unequivocal hyperglycemia, results should be confirmed by repeattesting. In a patient with classic symptoms of hyperglycemia or hyperglycemic crisis, random plasmaglucose results greater than or equal to 200 mg/dL meet the criteria for diagnosis of diabetes.Reference: Standards of Medical Care in Diabetes 2016, [place] [employer]. Diabetes Care. 2016.39(Suppl 1).Performed By: #### 2777-1, , ####[facility] LABCLIA [id number] [place], [place] [address]Knrkzatpk [Moles/Vol]4.6 mmol/LNormal3.7-5.1 [facility] on above:Order Comment: Specimen Type: BLOOD SPECIMENOrdering Facility: [facility] Address:[address] [place], [place] [address]Performed By: #### 2777-1, , ####[facility] LABCLIA [id number] [place], [place] [address]Sqtkavw [Mass/Vol]7.0 g/dLNormal6.3-8.0[facility] on above:Order Comment: Specimen Type: BLOOD SPECIMENOrdering Facility: [facility] Address:[address] [place], [place] [address]Performed By: #### 2777-1, , ####[facility] LABCLIA [id number] [place], [place] [address]Jetkpv [Moles/Vol]135 mmol/L Oxo247-855IjhtlvaheUniversity Hospitals [facility] on above:Order Comment: Specimen Type: BLOOD SPECIMENOrdering Facility: [facility] Address:[address] [place], [place] [address]Performed By: #### 2777-1, , ####[facility] LABCLIA [id number] [place], [place] [address]Hfpn nitrogen [Mass/Vol]26 mg/dLHigh7-21[facility] on above:Order Comment: Specimen Type: BLOOD SPECIMENOrdering Facility: [facility] Address:[address] [place] [address]Adlumppjl By: #### 2777-1, , ####[facility] LABCLIA [id number] [place], [place] [address]EAOOZLGCZnw 48-98-4727Akcazqghb [Mass/Vol]2.1 mg/dL1.7 - 2.3 mg/dLClesouthview medical center ClinicMagnesium SerPl-mCncon 93-03-8461Tyuugdjeh [Mass/Vol]2.1 mg/dLNormal1.7-2.3ClevelCentral Carolina HospitalComup health system on above:Order Comment: Specimen Type: BLOOD SPECIMENOrdering Facility: [facility] Address:[address] [place] [address]Annyiamam By: #### 2777-1, , ####[facility] LABCLIA [id number] [place], [place] [address]Xwxdeoxde [Mass/Vol]on 73-41-0069Cirlvkpigscamq and review of laboratory resultsNormalClake county memorial hospital - westand St. Gabriel HospitalNo Panel InformationOrdered By: Philly Guallpa on 24-87-8716Tlgvklsum ClinicPHOSPHORUS INORGANICon 46-60-3491Nkwdusvsz [Mass/Vol] 3.4 mg/dL2.7 - 4.8 mg/dLUniversity Hospitals Geneva Medical CenterPhosphate SerPl-mCncon 01-30-2025 Phosphate [Mass/Vol]3.4 mg/dLNormal2.7-4.8ClevelWayne HealthCare Main Campus on above:Order Comment: Specimen Type: BLOOD SPECIMENOrdering Facility: [facility] Address:[address] [place] [address]Jfohqdgro By: #### 2777-1, , ####[facility] LABCLIA [id number] [place], [place] [address]Sfygjvhgx [Mass/Vol]on 37-07-3236Hbfxhdjqvdpoms and review of laboratory resultsNormalClake county memorial hospital - westand Memorial Health SystemCB panel Auto (Bld)on 40-30-6084Latetgzwaax distribution width (RBC) [Ratio]13.5 %11.5 - 15.0 %[facility] Geneva Medical CenterHematocrit (Bld) [Volume fraction]34.3 %Low36.0 - 46.0 %[facility] Geneva Medical CenterHemoglobin (Bld) [Mass/Vol]11.4 g/dLLow11.5 - 15.5 g/dLUniversity Hospitals Geneva Medical CenterInterpretation and review of laboratory resultsAbnormalCSalem Regional Medical CenterH (RBC) [Entitic mass]30.1 pg26.0 - 34.0 pg [facility] HospitalHC (RBC) [Mass/Vol]33.2 g/dL30.5 - 36.0 g/dLUniversity Hospitals Geneva Medical Center MCV (RBC) [Entitic vol]90.5 fL80.0 - 100.0 fLCnewark hospital ClinicNucleated RBC (Bld) [#/Vol]NINFClevelformerly [facility] ClinicPlatelet mean volume (Bld) [Entitic vol]10.9 fL9.0 - 12.7 fLCnewark hospital ClinicPlatelets (Bld) [#/Vol]183 10*3/[facility] Community HospitalRBC (Bld) [#/Vol]3.79 10*6/uLLow3.90 - 5.20 m/[facility] Community HospitalWBC (Bld) [#/Vol] 5.31 10*3/[facility] Medical CenterErythrocyte distribution width (RBC) [Ratio]13.5 %Zlmqkq90.5-15.0Wood County HospitalComup health system on above:Order Comment: Specimen Type: BLOOD SPECIMENOrdering Facility: [facility] Address:[address] [place], [place] [address]Performed By: #### 84823- 2 ####[facility] CENTERTOM [facility] LABCLIA [id number] [place], [place] [address]Vvxjwkjohu (Bld) [Volume fraction]34.3 %Low36.0-46.0 [facility] on above:Order Comment: Specimen Type: BLOOD SPECIMENOrdering Facility: [facility] Address:[address] [place], [place] [address]Performed By: #### 22671-1 ####[facility] LABCLIA [id number] [place], [place] [address]Svwvdjxvof (Bld) [Mass/Vol]11.4 g/dLLow11.5-15.5CHolmes County [facility] on above:Order Comment: Specimen Type: BLOOD SPECIMENOrdering Facility: [facility] Address:[address] [place], [place] [address]Performed By: #### 38459- 2 ####[facility] LABCLIA [id number] [place], [place] [address]IFT (RBC) [Entitic mass]30.1 slKvvajh63.0-34.0[facility] on above:Order Comment: Specimen Type: BLOOD SPECIMENOrdering Facility: [facility] Address:[address] [place], [place] [address]Performed By: #### 91701-9 ####[facility] LABIA [id number] [place], [place] [address]WWEL (RBC) [Mass/Vol]33.2 g/zHZsokfs31.5-36.0[facility] on above: Order Comment: Specimen Type: BLOOD SPECIMENOrdering Facility: [facility] Address:[address] [place], [place] [address]Performed By: #### 18945- 2 ####[facility] LABCLIA [id number] [place], [place] [address]BLS (RBC) [Entitic vol]90.5 jEGxhjax28.0-100.0[facility] on above:Order Comment: Specimen Type: BLOOD SPECIMENOrdering Facility: [facility] Address:[address] [place], [place] [address]Performed By: #### 12314-7 ####[facility] LABIA [id number] [place], [place] [address]Ylyvacpco RBC (Bld) [#/Vol]10*3/uLNormal<0.01[facility] on above:Order Comment: Specimen Type: BLOOD SPECIMENOrdering Facility: [facility] Address:[address] [place], [place] [address]Performed By: #### 10251- 2 ####[facility] LABCLIA [id number] [place], [place] [address]Stofrpii mean volume (Bld) [Entitic vol]10.9 fLNormal 9.0-12.7CHolmes County [facility] on above:Order Comment: Specimen Type: BLOOD SPECIMENOrdering Facility: [facility] Address:[address] [place], [place] [address]Performed By: #### 58154-5 ####[facility] LABCLIA [id number] [place], [place] [address]Dwcvgpctx (Bld) [#/Vol]183 10*3/dWGnpykn466-395JwcwbiofbUniversity Hospitals Health System on above: Order Comment: Specimen Type: BLOOD SPECIMENOrdering Facility: [facility] Address:[address] [place], [place] [address]Performed By: #### 20167- 2 ####[facility] LABCLIA [id number] [place], [place] [address]RIY (Bld) [#/Vol]3.79 10*6/uLLow3.90-5.20[facility] on above:Order Comment: Specimen Type: BLOOD SPECIMENOrdering Facility: [facility] Address:[address] [place], [place] [address]Performed By: #### 92124-3 ####[facility] LABIA [id number] [place], [place] [address]IHI (Bld) [#/Vol]5.31 10*3/uL Normal3.70-11.00[facility] on above:Order Comment: Specimen Type: BLOOD SPECIMENOrdering Facility: [facility] Address:[address] [place], [place] [address]Performed By: #### 74568-3 ####[facility]ENTERTOM [facility] LABCLIA [id number] [place], [place] [address]Cjozplcdovsls metabolic 2000 panelOrdered By: Philly Guallpa on 25-27-6308Vpcgijs [Mass/Vol]3.9 g/dL3.9 - 4.9 g/dLBoca Raton ClinicALP [Catalytic activity/Vol]88 U/L34 - 123 U/LCleveland ClinicALT [Catalytic activity/Vol]32 U/L7 - 38 U/LCleveland ClinicAnion gap [Moles/Vol]7 mmol/LLow8 - 15 mmol/LCleveland ClinicAST [Catalytic activity/Vol]26 U/L13 - 35 U/LCleveland ClinicBilirubin [Mass/Vol]0.3 mg/dL0.2 - 1.3 mg/dLClesouthview medical center ClinicCalcium [Mass/Vol]8.9 mg/dL8.5 - 10.2 mg/dLBoca Raton ClinicChloride [Moles/Vol]104 mmol/L98 - 107 mmol/LCleveland ClinicCO2 [Moles/Vol]26 mmol/L22 - 30 mmol/L [place] ClinicCreatinine [Mass/Vol]0.51 mg/dLLow0.58 - 0.96 mg/dLBoca Raton ClinicGFR/1.73 sq M.predicted among non-blacks MDRD (S/P/Bld) [Vol rate/Area]123 mL/min/{1.73_m2}- PINFCleveland ClinicComment on above:Estimated Glomerular Filtration Rate (eGFR) is calculated using the 2020 CKD-EPI creatinine equation. This equation utilizes serum creatinine, sex, and age as parameters. The creatinine assay has traceable calibration to isotope dilution-mass spectrometry. Refer to KDIGO guidelines for clinical interpretation. In patients with unstable renal function, e.g. those with acute kidney injury, the eGFRmay not accurately reflect actual GFR.Glucose [Mass/Vol]100 mg/rITawm05 - 99 mg/dL [facility] Geneva Medical CenterComment on above:The [place] Diabetes Association (ADA) provides guidance for cutoff values for fasting glucose andrandom glucose. The ADA defines fasting as no caloric intake for at least 8 hours. Fasting plasma gl ucose results between 100 to 125 mg/dL indicate [...] Standards of Medical Care in Diabetes 2016, [place] [employer]. Diabetes Care. 2016.39(Suppl 1). Interpretation and review of laboratory resultsAbnormalCleveland ClinicPotassium [Moles/Vol]4.8 mmol/L3.7 - 5.1 mmol/LClevelformerly [facility] ClinicProtein [Mass/Vol]6.7 g/dL 6.3 - 8.0 g/dLBoca Raton ClinicSodium [Moles/Vol]137 mmol/L136 - 144 mmol/L [facility] Medical CenterUrea nitrogen [Mass/Vol]24 mg/dLHigh7 - 21 mg/dLClinton Memorial HospitalComprehensive metabolic 2000 panelon 98-11-4940Ywytacf [Mass/Vol]3.9 g/dLNormal3.9-4.9CHolmes [facility] on above:Order Comment: Specimen Type: BLOOD SPECIMENOrdering Facility: [facility] Address:[address] [place], [place] [address]Performed By: #### 2777- 1, , ####[facility] LABCLIA [id number] [place], [place] [address]RLW [Catalytic activity/Vol]88 U/LNormal 34-123[facility] on above:Order Comment: Specimen Type: BLOOD SPECIMENOrdering Facility: [facility] Address:[address] [place], [place] [address]Performed By: #### 2777-1, , ####[facility] LABCLIA [id number] [place], [place] [address]IAL [Catalytic activity/Vol]32 U/LNormal7-38[facility] on above:Order Comment: Specimen Type: BLOOD SPECIMENOrdering Facility: [facility] Address:[address] [place], [place] [address]Performed By: #### 2777-1, , ####[facility]IATOM [facility] LABCLIA [id number] [place], [place] [address]Aemhw gap [Moles/Vol]7 mmol/LLow8-15[facility] on above:Order Comment: Specimen Type: BLOOD SPECIMENOrdering Facility: [facility] Address:[address] [place], [place] [address]Performed By: #### 2777-1, , ####[facility] LABCLIA [id number] [place], [place] [address]PCG [Catalytic activity/Vol]26 U/QDoidoe69-72IimrkejozUniversity Hospitals Health System on above:Order Comment: Specimen Type: BLOOD SPECIMENOrdering Facility: [facility] Address:[address] [place], [place] [address]Performed By: #### 2777-1, , ####[facility] LABIA [id number] [place], [place] [address]Fryqcxvei [Mass/Vol]0.3 mg/dLNormal0.2-1.3CHolmes [facility] on above:Order Comment: Specimen Type: BLOOD SPECIMENOrdering Facility: [facility] Address:[address] [place], [place] [address]Performed By: #### 2777-1, , ####[facility]IVBEAUM[facility] LABIA [id number] [place], [place] [address]Nuzwczp [Mass/Vol]8.9 mg/dLNormal8.5-10.2CHolmes [facility] on above:Order Comment: Specimen Type: BLOOD SPECIMENOrdering Facility: [facility] Address:[address] [place] [address] Performed By: #### 2777-1, , ####[facility] LABCLIA [id number] [place], [place] [address]Dclnzybr [Moles/Vol]104 mmol/YPzqwrk10-010OqvowautsKettering Health Springfieldment on above: Order Comment: Specimen Type: BLOOD SPECIMENOrdering Facility: [facility] Address:[address] [place], [place] [address]Performed By: #### 2777- 1, , ####[facility] LABCLIA [id number] [place], [place] [address]WG8 [Moles/Vol]26 mmol/VWpnsbr35-20IhuvdpmwgUniversity Hospitals Health System on above:Order Comment: Specimen Type: BLOOD SPECIMENOrdering Facility: [facility] Address:[address] [place], [place] [address]Performed By: #### 2777-1, , ####[facility] LABCLIA [id number] [place], [place] [address]Ndoktocnrq [Mass/Vol]0.51 mg/dLLow0.58-0.96[facility] Comment on above:Order Comment: Specimen Type: BLOOD SPECIMENOrdering Facility: [facility] Address:[address] [place] [address] Performed By: #### 2777-1, , ####[facility] LABCLIA [id number] [place], [place] [address]rGBOrz SerPlBld CKD-EPI 2038812 mL/min/1.73m???Normal>=60[facility] on above:Order Comment: Specimen Type: BLOOD SPECIMENOrdering Facility: [facility] Address:[address] [place], [place] [address]Result Comment: Estimated Glomerular Filtration Rate (eGFR) is calculated using the 2020 CKD-EPI creatinine equation. This equation utilizes serum creatinine, sex, and age as parameters. The creatinine assay has traceable calibration to isotope dilution- mass spectrometry. Refer to KDIGO guidelines for clinical interpretation. In patients with unstable renal function, e.g. those with acute kidney injury, the eGFR may not accurately reflect actual GFR.Performed By: #### 2777-1, , ####[facility] LABCLIA [id number] [place], [place] [address]Vcpcetz [Mass/Vol]100 mg/vUWztt16-39VeennbdycUniversity Hospitals Health System on above:Order Comment: Specimen Type: BLOOD SPECIMENOrdering Facility: [facility] Address:[address] [place], [place] [address]Nqioxq Comment: The [place] Diabetes Association (ADA) provides guidance for cutoff values for fasting glucose and random glucose. The ADA defines fasting as no caloric intake for at least 8 hours. Fasting plasma glucose results between 100 to 125 mg/dL indicate increased risk for diabetes (prediab etes).Fasting plasma glucose results greater than or equal to 126 mg/dL meet the criteria for diagnosis of diabetes. In the absence of unequivocal hyperglycemia, results should be confirmed by repeattesting. In a patient with classic symptoms of hyperglycemia or hyperglycemic crisis, random plasmaglucose results greater than or equal to 200 mg/dL meet the criteria for diagnosis of diabetes.Reference: Standards of Medical Care in Diabetes 2016, [place] [employer]. Diabetes Care. 2016.39(Suppl 1).Performed By: #### 2777-1, , ####[facility] LABCLIA [id number] [place], [place] [address]Syyhubdrz [Moles/Vol]4.8 mmol/LNormal3.7-5.1 [facility] on above:Order Comment: Specimen Type: BLOOD SPECIMENOrdering Facility: [facility] Address:[address] [place], [place] [address]Adrikczbf By: #### 2777-1, , ####[facility] LABCLIA [id number] [place], [place] [address]Ywdvcxs [Mass/Vol]6.7 g/dLNormal6.3-8.0[facility] on above:Order Comment: Specimen Type: BLOOD SPECIMENOrdering Facility: [facility] Address:[address] [place], [place] [address]Performed By: #### 2777-1, , ####[facility] LABCLIA [id number] [place], [place] [address]Fpresk [Moles/Vol]137 mmol/L Woiysn431-774DnyacdrssUniversity Hospitals Health System on above:Order Comment: Specimen Type: BLOOD SPECIMENOrdering Facility: [facility] Address:[address] [place], [place] [address]Performed By: #### 2777-1, , ####[facility] LABCLIA [id number] [place], [place] [address]Tpbp nitrogen [Mass/Vol]24 mg/dLHigh7-21[facility] on above:Order Comment: Specimen Type: BLOOD SPECIMENOrdering Facility: [facility] Address:[address] [place], [place] [address]Performed By: #### 2777-1, , ####[facility] LABCLIA [id number] [place], [place] [address]ASOPWQHTTis 43-07-8166Gugtaeoof [Mass/Vol]2.2 mg/dL1.7 - 2.3 mg/dLUniversity Hospitals Geneva Medical CenterMagnesium SerPl-mCncon 62-99-4950Ayjohbwdy [Mass/Vol]2.2 mg/dLNormal1.7-2.3CHolmes [facility] on above:Order Comment: Specimen Type: BLOOD SPECIMENOrdering Facility: [facility] Address:[address] [place], [place] [address]Performed By: #### 2777-1, , ####[facility] LABCLIA [id number] [place], [place] [address]Vhtgxqkvz [Mass/Vol]on 24-73-4402Kpdfmxgawhsxwk and review of laboratory resultsNormalCOhioHealth Arthur G.H. Bing, MD, Cancer CenterPHOSPHORUS INORGANICon 01-24-2025 Phosphate [Mass/Vol]3.3 mg/dL2.7 - 4.8 mg/dLUniversity Hospitals Geneva Medical CenterPhosphate SerPl-mCnc on 21-35-8041Kfhntvpud [Mass/Vol]3.3 mg/dLNormal2.7-4.8CCorey Hospital ClevelandComment on above:Order Comment: Specimen Type: BLOOD SPECIMENOrdering Facility: [facility] Address:[address] [place] [address]Iugjjvyzo By: #### 2777-1, 31717-6, 29589-1 ####[facility] LABCLIA [id number] [place], [place] [address]Pjdnroenb [Mass/Vol]on 23-63-3292Lbpthtggczaxnj and review of laboratory resultsNormal UC HealthCBC panel Auto (Bld)on 53-04-6766Ftjlaugpepk distribution width (RBC) [Ratio]13.7 %11.5 - 15.0 %[facility] Geneva Medical CenterHematocrit (Bld) [Volume fraction]34.1 %Low36.0 - 46.0 %[facility] Medical CenterHemoglobin (Bld) [Mass/Vol]11.4 g/dLLow11.5 - 15.5 g/dLUniversity Hospitals Geneva Medical CenterInterpretation and review of laboratory resultsAbnormalCSalem Regional Medical CenterH (RBC) [Entitic mass]30 pg26.0 - 34.0 pgClevelFederal Correction Institution HospitalHC (RBC) [Mass/Vol]33.4 g/dL30.5 - 36.0 g/dLMercy Health Kings Mills HospitalV (RBC) [Entitic vol]89.7 fL80.0 - 100.0 fLCnewark hospital ClinicNucleated RBC (Bld) [#/Vol]NINFClevelClermont County HospitalPlatelet mean volume (Bld) [Entitic vol]10 fL 9.0 - 12.7 fLCCorey HospitalPlatelets (Bld) [#/Vol]180 10*3/uLUniversity Hospitals Geneva Medical Center RBC (Bld) [#/Vol]3.8 10*6/uLLow3.90 - 5.20 m/Bucyrus Community HospitalWBC (Bld) [#/Vol] 5.99 10*3/[facility] Campus Medical CenterErythrocyte distribution width (RBC) [Ratio]13.7 %Upqdhv64.5-15.0[facility] on above:Order Comment: Specimen Type: BLOOD SPECIMENOrdering Facility: [facility] Address:[address] [place], [place] [address]Performed By: #### 93655- 2 ####[facility] LABCLIA [id number] [place], [place] [address]Flsavotbud (Bld) [Volume fraction]34.1 %Low36.0-46.0 [facility] on above:Order Comment: Specimen Type: BLOOD SPECIMENOrdering Facility: [facility] Address:[address] [place], [place] [address]Performed By: #### 25513-6 ####[facility] LABIA [id number] [place], [place] [address]Gkqkpjvzcl (Bld) [Mass/Vol]11.4 g/dLLow11.5-15.5CHolmes [facility] on above:Order Comment: Specimen Type: BLOOD SPECIMENOrdering Facility: [facility] Address:[address] [place], [place] [address]Performed By: #### 04396- 2 ####[facility] LABCLIA [id number] [place], [place] [address]UCR (RBC) [Entitic mass]30.0 jyDkbglz78.0-34.0[facility] on above:Order Comment: Specimen Type: BLOOD SPECIMENOrdering Facility: [facility] Address:[address] [place], [place] [address]Performed By: #### 05226-1 ####[facility] LABIA [id number] [place], [place] [address]GELZ (RBC) [Mass/Vol]33.4 g/kUFiomkk09.5-36.0[facility] on above: Order Comment: Specimen Type: BLOOD SPECIMENOrdering Facility: [facility] Address:[address] [place], [place] [address]Performed By: #### 10472- 2 ####[facility] LABCLIA [id number] [place], [place] [address]AUE (RBC) [Entitic vol]89.7 eNCcgqmg61.0-100.0[facility] on above:Order Comment: Specimen Type: BLOOD SPECIMENOrdering Facility: [facility] Address:[address] [place], [place] [address]Performed By: #### 14628-6 ####[facility] LABIA [id number] [place], [place] [address]Nqoytsbdz RBC (Bld) [#/Vol]10*3/uLNormal<0.01[facility] on above:Order Comment: Specimen Type: BLOOD SPECIMENOrdering Facility: [facility] Address:[address] [place], [place] [address]Performed By: #### 45635- 2 ####[facility] LABCLIA [id number] [place], [place] [address]Crtpczqg mean volume (Bld) [Entitic vol]10.0 fLNormal 9.0-12.7CHol[facility] on above:Order Comment: Specimen Type: BLOOD SPECIMENOrdering Facility: [facility] Address:[address] [place], [place] [address]Performed By: #### [id number] ####[facility] LABIA [id number] [place], [place] [address]Atgtgylpy (Bld) [#/Vol]180 10*3/oUDcmmgm043-799FkbncndbwUniversity Hospitals [facility] on above: Order Comment: Specimen Type: BLOOD SPECIMENOrdering Facility: [facility] Address:[address] [place] [address]Gjezfhfuc By: #### 73923- 2 ####[facility] LABCLIA [id number] [place], [place] [address]FXC (Bld) [#/Vol]3.80 10*6/uLLow3.90-5.20[facility] on above:Order Comment: Specimen Type: BLOOD SPECIMENOrdering Facility: [facility] Address:[address] [place], [place] [address]Performed By: #### 96295-0 ####[facility] LABCLIA [id number] [place], [place] [address]GMI ([facility]) [#/Vol]5.99 10*3/uL Normal3.70-11.00[facility] on above:Order Comment: Specimen Type: BLOOD SPECIMENOrdering Facility: [facility] Address:[address] [place] [address] 48103Qtxsqfnbm By: #### 58561-3 ####[facility] LABCLIA [id number] [place], [place] [address]Cujnlbotemocy metabolic 2000 panelOrdered By: Raheem Pozo on 34-46-9565Uuzbqht [Mass/Vol]4 g/dL3.9 - 4.9 g/dLBoca Raton ClinicALP [Catalytic activity/Vol]91 U/L34 - 123 U/LCleveland ClinicALT [Catalytic activity/Vol]33 U/L7 - 38 U/LCleveland ClinicAnion gap [Moles/Vol]10 mmol/L8 - 15 mmol/LCleveland ClinicAST [Catalytic activity/Vol]21 U/L13 - 35 U/LCleveland ClinicBilirubin [Mass/Vol]0.4 mg/dL0.2 - 1.3 mg/dLClesouthview medical center ClinicCalcium [Mass/Vol]9 mg/dL8.5 - 10.2 mg/dLClesouthview medical center ClinicChloride [Moles/Vol]104 mmol/L 98 - 107 mmol/LCleveland ClinicCO2 [Moles/Vol]24 mmol/L22 - 30 mmol/LCleveland ClinicCreatinine [Mass/Vol]0.5 mg/dLLow0.58 - 0.96 mg/dLUniversity Hospitals Geneva Medical CenterGFR/1.73 sq M.predicted among non-blacks MDRD (S/P/Bld) [Vol rate/Area]124 mL/min/{1.73_m2}- PINFCCorey HospitalComment on above:Estimated Glomerular Filtration Rate (eGFR) is calculated using the 2020 CKD-EPI creatinine equation. This equation utilizes serum creatinine, sex, and age as parameters. The creatinine assay has traceable calibration to isotope dilution-mass spectrometry. Refer to KDIGO guidelines for clinical interpretation. In patients with unstable renal function, e.g. those with acute kidney injury, the eGFRmay not accurately reflect actual GFR.Glucose [Mass/Vol]108 mg/eYEfmu06 - 99 mg/dL [facility] on above:The [place] Diabetes Association (ADA) provides guidance for cutoff values for fasting glucose andrandom glucose. The ADA defines fasting as no caloric intake for at least 8 hours. Fasting plasma gl ucose results between 100 to 125 mg/dL indicate [...] Standards of Medical Care in Diabetes 2016, [place] Diabetes Association. Diabetes Care. 2016.39(Suppl 1). Interpretation and review of laboratory resultsAbnormalCleveland ClinicPotassium [Moles/Vol]4.5 mmol/L3.7 - 5.1 mmol/LCleveland ClinicProtein [Mass/Vol]6.9 g/dL 6.3 - 8.0 g/dLBoca Raton ClinicSodium [Moles/Vol]138 mmol/L136 - 144 mmol/L [facility] Medical CenterUrea nitrogen [Mass/Vol]26 mg/dLHigh7 - 21 mg/dLSelect Medical Specialty Hospital - Youngstownprehensive metabolic 2000 panelon 96-25-1331Hdauvma [Mass/Vol]4.0 g/dLNormal3.9-4.9CHolmes [facility] on above:Order Comment: Specimen Type: BLOOD SPECIMENOrdering Facility: [facility] Address:[address] [id number] By: #### 2777- 1, , ####[facility] LABCLIA [id number] [facility] [place], [place] [address]XAV [Catalytic activity/Vol]91 U/LNormal 34-123[facility] on above:Order Comment: Specimen Type: BLOOD SPECIMENOrdering Facility: [facility] Address:[address] [place], [place] [address]Performed By: #### 2777-1, , ####[facility] LABCLIA [id number] [facility] [place], [place] [address]GFB [Catalytic activity/Vol]33 U/LNormal7-38[facility] on above:Order Comment: Specimen Type: BLOOD SPECIMENOrdering Facility: [facility] Address:[address] [place], [place] [address]Performed By: #### 2777-1, , ####[facility] LABCLIA [id number] [place], [place] [address]Uqlae gap [Moles/Vol]10 mmol/LNormal8-15[facility] on above:Order Comment: Specimen Type: BLOOD SPECIMENOrdering Facility: [facility] Address:[address] [place] [address] Performed By: #### 2777-1, , ####[facility]IVIATOM [facility] LABCLIA [id number] [place], [place] [address]ZDI [Catalytic activity/Vol]21 U/DIoqmoh72-84DybmgmhbeUniversity Hospitals Health System on above:Order Comment: Specimen Type: BLOOD SPECIMENOrdering Facility: [facility] Address:[address] [place], [place] [address]Performed By: #### 2777- 1, , ####[facility] LABCLIA [id number] [place], [place] [address]Imczyxgua [Mass/Vol]0.4 mg/dLNormal0.2-1.3 [facility] on above:Order Comment: Specimen Type: BLOOD SPECIMENOrdering Facility: [facility] Address:[address] [place], [place] [address]Performed By: #### 2777-1, , ####[facility] LABCLIA [id number] [place], [place] [address]Iwnzbse [Mass/Vol]9.0 mg/dLNormal8.5-10.2CHolmes [facility] on above:Order Comment: Specimen Type: BLOOD SPECIMENOrdering Facility: [facility] Address:[address] [place] [address] Performed By: #### 2777-1, , ####[facility] LABCLIA [id number] [place], [place] [address]Piokhsbx [Moles/Vol]104 mmol/BSnfzfx54-367FrcjtxycpUniversity Hospitals Health System on above: Order Comment: Specimen Type: BLOOD SPECIMENOrdering Facility: [facility] Address:[address] [place], [place] [address]Performed By: #### 2777- 1, , ####[facility] LABCLIA [id number] [place], [place] [address]JP8 [Moles/Vol]24 mmol/IKetqvz75-17EfcakoyxcUniversity Hospitals Health System on above:Order Comment: Specimen Type: BLOOD SPECIMENOrdering Facility: [facility] Address:[address] [place], [place] [address]Performed By: #### 2777-1, , ####[facility] LABCLIA [id number] [place], [place] [address]Mfdxhxqxnv [Mass/Vol]0.50 mg/dLLow0.58-0.96[facility] Comment on above:Order Comment: Specimen Type: BLOOD SPECIMENOrdering Facility: [facility] Address:[address] [place] [address] Performed By: #### 2777-1, , ####[facility] LABCLIA [id number] [place], [place] [address]fJVLnv SerPlBld CKD-EPI 9562639 mL/min/1.73m???Normal>=60[facility] Springfieldment on above:Order Comment: Specimen Type: BLOOD SPECIMENOrdering Facility: [facility] Address:[address] [place] [address]Qqhnsm Comment: Estimated Glomerular Filtration Rate (eGFR) is calculated using the 2020 CKD-EPI creatinine equation. This equation utilizes serum creatinine, sex, and age as parameters. The creatinine assay has traceable calibration to isotope dilution- mass spectrometry. Refer to KDIGO guidelines for clinical interpretation. In patients with unstable renal function, e.g. those with acute kidney injury, the eGFR may not accurately reflect actual GFR.Performed By: #### 2777-1, , ####[facility] LABCLIA [id number] [place], [place] [address]Pwnqzkk [Mass/Vol]108 mg/kSCmvj43-91LqfowfkegUniversity Hospitals Health System on above:Order Comment: Specimen Type: BLOOD SPECIMENOrdering Facility: [facility] Address:[address] [place] [address]Iwiomt Comment: The [place] Diabetes Association (ADA) provides guidance for cutoff values for fasting glucose and random glucose. The ADA defines fasting as no caloric intake for at least 8 hours. Fasting plasma glucose results between 100 to 125 mg/dL indicate increased risk for diabetes (prediab etes).Fasting plasma glucose results greater than or equal to 126 mg/dL meet the criteria for diagnosis of diabetes. In the absence of unequivocal hyperglycemia, results should be confirmed by repeattesting. In a patient with classic symptoms of hyperglycemia or hyperglycemic crisis, random plasmaglucose results greater than or equal to 200 mg/dL meet the criteria for diagnosis of diabetes.Reference: Standards of Medical Care in Diabetes 2016, [place] Diabetes Association. Diabetes Care. 2016.39(Suppl 1).Performed By: #### 2777-1, , ####[facility] LABCLIA [id number] [place], [place] [address]Zatqkvtmx [Moles/Vol]4.5 mmol/LNormal3.7-5.1 [facility] on above:Order Comment: Specimen Type: BLOOD SPECIMENOrdering Facility: [facility] Address:[address] [place], [place] [address]Performed By: #### 2777-1, , ####[facility] LABCLIA [id number] [place], [place] [address]Orlmhvj [Mass/Vol]6.9 g/dLNormal6.3-8.0[facility] on above:Order Comment: Specimen Type: BLOOD SPECIMENOrdering Facility: [facility] Address:[address] [place], [place] [address]Performed By: #### 2777-1, , ####[facility] LABCLIA [id number] [place], [place] [address]Razpmh [Moles/Vol]138 mmol/L Xgujsj615-409QjzgqxtuiUniversity Hospitals Health System on above:Order Comment: Specimen Type: BLOOD SPECIMENOrdering Facility: [facility] Address:[address] [place], [place] [address]Performed By: #### 2777-1, , ####[facility] LABCLIA [id number] [place], [place] [address]Xmit nitrogen [Mass/Vol]26 mg/dLHigh7-21[facility] on above:Order Comment: Specimen Type: BLOOD SPECIMENOrdering Facility: [facility] Address:[address] [place] [address]Ujvxvrjqm By: #### 2777-1, 67937-5, 54834-2 ####[facility] LABCLIA [id number] [place], [place] [address]CFNUMZNPPbi 85-36-3585Uoklwreej [Mass/Vol]2.2 mg/dL1.7 - 2.3 mg/dLUniversity Hospitals Geneva Medical CenterMagnesium SerPl-mCncon 84-64-3713Wdxievszn [Mass/Vol]2.2 mg/dLNormal1.7-2.3CMercy Health Urbana HospitalComup health system on above:Order Comment: Specimen Type: BLOOD SPECIMENOrdering Facility: [facility] Address:[address] [place] [address]Jscxramqy By: #### 2777-1, , 32220-6 ####[facility] LABCLIA [id number] [place], [place] [address]Voymevgeg [Mass/Vol]on 16-40-9266Rogylzkefyiunt and review of laboratory resultsNormalCOhioHealth Arthur G.H. Bing, MD, Cancer CenterPHOSPHORUS INORGANICon 01-16-2025 Phosphate [Mass/Vol]3.3 mg/dL2.7 - 4.8 mg/dLUniversity Hospitals Geneva Medical CenterPhosphate SerPl-mCnc on 28-63-6583Ycriiptik [Mass/Vol]3.3 mg/dLNormal2.7-4.8CHolmes [facility] on above:Order Comment: Specimen Type: BLOOD SPECIMENOrdering Facility: [facility] Address:[address] [place] [address]Qjqdxqnnn By: #### 2777-1, , 34423-5 ####[facility] LABIA [id number] [place], [place] [address]Cmaexufky [Mass/Vol]on 21-98-5275Kcqboxcgjughrc and review of laboratory resultsNormal UC HealthCNPNon 01-13-2696FSDTGqcnpnWukdquccp Clinic ClevelandCB panel Auto (Bld)on 11-91-0451Hpewubhxwck distribution width (RBC) [Ratio]13.8 %11.5 - 15.0 %[facility] Geneva Medical CenterHematocrit (Bld) [Volume fraction]34.8 %Low36.0 - 46.0 %[facility] Geneva Medical CenterHemoglobin (Bld) [Mass/Vol]11.7 g/dL11.5 - 15.5 g/dLUniversity Hospitals Geneva Medical CenterInterpretation and review of laboratory resultsAbnormal [facility] Medical CenterMCH (RBC) [Entitic mass]29.6 pg26.0 - 34.0 pgCCorey Hospital MCHC (RBC) [Mass/Vol]33.6 g/dL30.5 - 36.0 g/dLUniversity Hospitals Geneva Medical CenterMCV (RBC) [Entitic vol]88.1 fL80.0 - 100.0 fLCCorey HospitalNucleated RBC (Bld) [#/Vol]NINF [facility] Medical CenterPlatelet mean volume (Bld) [Entitic vol]11.3 fL9.0 - 12.7 fL [facility] Medical CenterPlatelets (Bld) [#/Vol]220 10*3/uLUniversity Hospitals Geneva Medical CenterRBC (Bld) [#/Vol]3.95 10*6/uL3.90 - 5.20 m/uLUniversity Hospitals Geneva Medical CenterWBC (Bld) [#/Vol]5.22 10*3/uL UC HealthErythrocyte distribution width (RBC) [Ratio]13.8 %Ztospx04.5-15.0[facility] County HospitalComup health system on above:Order Comment: Specimen Type: BLOOD SPECIMENOrdering Facility: [facility] Address:[address] [place], [place] [address]Performed By: #### 25530-4 ####[facility] [id number] [address] STREETHematocrit (Bld) [Volume fraction]34.8 %Low36.0-46.0[facility] on above:Order Comment: Specimen Type: BLOOD SPECIMENOrdering Facility: [facility] Address:[address] [place], [place] [address]Performed By: #### 25273-0 ####[facility] [id number] [address] STREETHemoglobin (Bld) [Mass/Vol]11.7 g/mRUkbdqe61.5-15.5CHolmes [facility] on above:Order Comment: Specimen Type: BLOOD SPECIMENOrdering Facility: [facility] Address:[address] [place], [place] [address]Performed By: #### 02185-8 ####[facility] [id number] [place], [place] [address]H (RBC) [Entitic mass]29.6 ezQpgyey52.0-34.0[facility] Comment on above:Order Comment: Specimen Type: BLOOD SPECIMENOrdering Facility: [facility] Address:[address] [place] [address] Performed By: #### 38799-8 ####[facility] [id number] [place], [place] [address]HC (RBC) [Mass/Vol]33.6 g/bIXusxhx28.5-36.0[facility] HospitalComup health system on above: Order Comment: Specimen Type: BLOOD SPECIMENOrdering Facility: [facility] Address:[address] [place], [place] [address]Performed By: #### 72314- 2 ####[facility] [id number] [place], [place] [address]V (RBC) [Entitic vol]88.1 fLNormal 80.0-100.0[facility] HospitalComup health system on above:Order Comment: Specimen Type: BLOOD SPECIMENOrdering Facility: [facility] Address:[address] [place], [place] [address]Performed By: #### 33785-3 ####[facility] [id number] [place] [address] RBC (Bld) [#/Vol]10*3/uLNormal<0.01[facility] on above:Order Comment: Specimen Type: BLOOD SPECIMENOrdering Facility: [facility] Address:[address] [place], [place] [address]Performed By: #### 34075-9 ####[facility] [id number] [place] [address] [place] AMERICAPlatelet mean volume (Bld) [Entitic vol]11.3 fLNormal9.0-12.7CHolmes [facility] on above:Order Comment: Specimen Type: BLOOD SPECIMENOrdering Facility: [facility] Address:[address] [place], [place] [address]Performed By: #### 03441-6 ####[facility] [id number] [place] [address] [place] AMERICAPlatelets (Bld) [#/Vol]220 10*3/uSUfxkka499-674QqposyiexWood County Hospital Comment on above:Order Comment: Specimen Type: BLOOD SPECIMENOrdering Facility: [facility] Address:[address] [place] [address] Performed By: #### 19357-4 ####[facility] [id number] [place] [address] [place] AMERICARBC (Bld) [#/Vol]3.95 10*6/uLNormal3.90-5.20[facility] on above: Order Comment: Specimen Type: BLOOD SPECIMENOrdering Facility: [facility] Address:[address] [place], [place] [address]Performed By: #### 95864- 2 ####[facility] [id number] [place] [address] [place] AMERICAWBC (Bld) [#/Vol]5.22 10*3/uLNormal 3.70-11.00[facility] ClevelandComment on above:Order Comment: Specimen Type: BLOOD SPECIMENOrdering Facility: [facility] Address:[address] [place], [place] [address]Performed By: #### 40512-6 ####[facility] [id number] [facility] Q19XJMEXOKTKGALVEST[place] [address] [place] AMERICACNCNPATEDon 50-08-8734TILVWJRUHYkzebdWntaahsla [facility] CNOVon 86-59-4024YTLLDyxlmoXvvweyumu [facility] HendersonvilleComprehensive metabolic 2000 panelon 34-72-7934Yztyktd [Mass/Vol]4 g/dL3.9 - 4.9 g/dLBoca Raton ClinicALP [Catalytic activity/Vol]111 U/L34 - 123 U/LCleveland ClinicALT [Catalytic activity/Vol]41 U/LHigh7 - 38 U/LCleveland ClinicAnion gap [Moles/Vol]12 mmol/L8 - 15 mmol/LCleveland ClinicAST [Catalytic activity/Vol]28 U/L13 - 35 U/L [facility] Medical CenterBilirubin [Mass/Vol]0.4 mg/dL0.2 - 1.3 mg/dLUniversity [facility]als Geneva [facility] Center Calcium [Mass/Vol]9.1 mg/dL8.5 - 10.2 mg/dLUniversity Hospitals Geneva Medical CenterChloride [Moles/Vol] 103 mmol/L98 - 107 mmol/LCleveland ClinicCO2 [Moles/Vol]22 mmol/L22 - 30 mmol/L [facility] CenterCreatinine [Mass/Vol]0.52 mg/dLLow0.58 - 0.96 mg/dLUniversity Hospitals Geneva Medical CenterGFR/1.73 sq M.predicted among non-blacks MDRD (S/P/Bld) [Vol rate/Area]123 mL/min/{1.73_m2}- PINFCleveland ClinicComment on above:Estimated Glomerular Filtration Rate (eGFR) is calculated using the 2020 CKD-EPI creatinine equation. This equation utilizes serum creatinine, sex, and age as parameters. The creatinine assay has traceable calibration to isotope dilution-mass spectrometry. Refer to KDIGO guidelines for clinical interpretation. In patients with unstable renal function, e.g. those with acute kidney injury, the eGFRmay not accurately reflect actual GFR.Glucose [Mass/Vol]104 mg/iFFffp28 - 99 mg/dL [facility] on above:The [place] Diabetes Association (ADA) provides guidance for cutoff values for fasting glucose andrandom glucose. The ADA defines fasting as no caloric intake for at least 8 hours. Fasting plasma gl ucose results between 100 to 125 mg/dL indicate [...] Standards of Medical Care in Diabetes 2016, [place] [employer]. Diabetes Care. 2016.39(Suppl 1). Interpretation and review of laboratory resultsAbnormalCleveland ClinicPotassium [Moles/Vol]4.6 mmol/L3.7 - 5.1 mmol/LCnewark hospital ClinicProtein [Mass/Vol]7.3 g/dL 6.3 - 8.0 g/dLProMedica Toledo Hospitalodium [Moles/Vol]137 mmol/L136 - 144 mmol/L [facility] Medical CenterUrea nitrogen [Mass/Vol]22 mg/dLHigh7 - 21 mg/dLUniversity Hospitals Geneva Medical Center Albumin [Mass/Vol]4.0 g/dLNormal3.9-4.9CHol[facility] on above:Order Comment: Specimen Type: BLOOD SPECIMENOrdering Facility: [facility] Address:[address] [place], [place] [address]Performed By: #### 11591-9, 18267-6, 27701-02 ####[facility] [id number] [place] [address] [place] AMERICAALP [Catalytic activity/Vol]111 U/ECeuiwd06-125RbfdfzquhUniversity Hospitals Health System on above:Order Comment: Specimen Type: BLOOD SPECIMENOrdering Facility: [facility] Address:[address] [place], [place] [address]Performed By: #### 94441- 9, 98555-7, 2777- ####[facility] [id number] [place] [address] [place] AMERICAALT [Catalytic activity/Vol]41 U/LHigh7-38[facility] on above:Order Comment: Specimen Type: BLOOD SPECIMENOrdering Facility: [facility] Address:[address] [place], [place] [address]Performed By: #### 82723- 9, 43307-7, 2777-1 ####[facility] [id number] [place] [address] [place] AMERICAAnion gap [Moles/Vol] 12 mmol/LNormal8-15[facility] on above:Order Comment: Specimen Type: BLOOD SPECIMENOrdering Facility: [facility] Address:[address] [place], [place] [address]Performed By: #### 07525-5, 98826-1, 2777-1 ####[facility] [id number] [place] [address] [place] AMERICAAST [Catalytic activity/Vol]28 U/DXrvvmx14-26GszuiffxqUniversity Hospitals Health System on above:Order Comment: Specimen Type: BLOOD SPECIMENOrdering Facility: [facility] Address:[address] [place], [place] [address]Performed By: #### 94580-2, 64613-1, 2777-1 ####[facility] [id number] [place] [address] [place] AMERICABilirubin [Mass/Vol]0.4 mg/dL Normal0.2-1.3CHolmes [facility] on above:Order Comment: Specimen Type: BLOOD SPECIMENOrdering Facility: [facility] Address:[address] [place], [place] [address]Performed By: #### 05438-8, 00307-3, 2777-1 ####[facility] [id number] [place] [address] [place] AMERICACalcium [Mass/Vol]9.1 mg/dLNormal 8.5-10.2CHolmes [facility] on above:Order Comment: Specimen Type: BLOOD SPECIMENOrdering Facility: [facility] Address:[address] [place], [place] [address]Performed By: #### 89891-6, 04375-7, 2777-1 ####[facility] [id number] [place] [address] [place] AMERICAChloride [Moles/Vol]103 mmol/L Zndfvv84-143MbeemyavdUniversity Hospitals Health System on above:Order Comment: Specimen Type: BLOOD SPECIMENOrdering Facility: [facility] Address:[address] [place], [place] [address]Performed By: #### 73401-2, 96610-2, 2777- ####[facility] [id number] [place] [address] [place] AMERICACO2 [Moles/Vol]22 mmol/LNormal 22-30[facility] on above:Order Comment: Specimen Type: BLOOD SPECIMENOrdering Facility: [facility] Address:[address] [place], [place] [address]Performed By: #### 23085-2, 35688-8, 277- ####[facility] [id number] [place] [address] [place] AMERICACreatinine [Mass/Vol]0.52 mg/dLLow0.58-0.96[facility] on above:Order Comment: Specimen Type: BLOOD SPECIMENOrdering Facility: [facility] Address:[address] [place], [place] [address]Performed By: #### 74002-7, 25216-3, 2777-1 ####[facility] [id number] [place] [address] [place] AMERICACreatinine and Glomerular filtration rate.predicted panel (S/P/Bld)123 mL/min/1.73m???Normal>=60[facility] on above:Order Comment: Specimen Type: BLOOD SPECIMENOrdering Facility: [facility] Address:[address] [place], [place] [address]Result Comment: Estimated Glomerular Filtration Rate (eGFR) is calculated using the 2020 CKD-EPI creatinine equation. This equation utilizes serum creatinine, sex, and age as parameters. The creatinine assay has traceable calibration to isotope dilution- mass spectrometry. Refer to KDIGO guidelines for clinical interpretation. In patients with unstable renal function, e.g. those with acute kidney injury, the eGFR may not accurately reflect actual GFR.Performed By: #### 71319-0, 34040-2, 2777-1 ####[facility] [id number] [place] [address] [place] AMERICAGlucose [Mass/Vol]104 mg/dLHigh 74-99[facility] on above:Order Comment: Specimen Type: BLOOD SPECIMENOrdering Facility: [facility] Address:[address] [place], [place] [address]ult Comment: The [place] Diabetes Association (ADA) provides guidance for cutoff [...] unequivocal hyperglycemia, results should be confirmed by repeattesting. In a patient with classic symptoms of hyperglycemia or hyperglycemic crisis, random plasmaglucose results greater than or equal to 200 mg/dL meet the criteria for diagnosis of diabetes.Reference: Standards of Medical Care in Diabetes 2016, [place] [employer] Association. Diabetes Care. 2016.39(Suppl 1).Performed By: #### 14744- 9, 59425-3, 2777-1 ####[facility] [id number] [place] [address] [place] OF AMERICAPotassium [Moles/Vol] 4.6 mmol/LNormal3.7-5.1CHolmes [facility] on above:Order Comment: Specimen Type: BLOOD SPECIMENOrdering Facility: [facility] Address:[address] [place], [place] [address]Performed By: #### 33557-5, 39118-3, 2777- ####[facility] [id number] [place] [address] [place] AMERICAProtein [Mass/Vol]7.3 g/dLNormal 6.3-8.0[facility] on above:Order Comment: Specimen Type: BLOOD SPECIMENOrdering Facility: [facility] Address:[address] [place], [place] [address]Performed By: #### 03264-9, 30450-5, 2777-1 ####[facility] [id number] [place] [address] [place] OF AMERICASodium [Moles/Vol]137 mmol/ELajhsv813-183TlygsoislUniversity Hospitals Health System on above:Order Comment: Specimen Type: BLOOD SPECIMENOrdering Facility: [facility] Address:[address] [place], [place] [address]Performed By: #### 61473-4, 99349-2, 2777- ####[facility] [id number] [place] [address] [place] AMERICAUrea nitrogen [Mass/Vol]22 mg/dLHigh7-21[facility] on above:Order Comment: Specimen Type: BLOOD SPECIMENOrdering Facility: [facility] Address:[address] [place], [place] [address]Performed By: #### 42193-8, 90708-5, 2777-1 ####[facility] [id number] [place] [address] [place] OF AMERICAMAGNESIUMon 37-06-5252Admfmzalb [Mass/Vol]2.1 mg/dL1.7 - 2.3 mg/dL [facility] Medical CenterMagnesium SerPl-mCncon 76-62-5137Zwoghiskd [Mass/Vol]2.1 mg/dL Normal1.7-2.3CHolmes [facility] on above:Order Comment: Specimen Type: BLOOD SPECIMENOrdering Facility: [facility] Address:[address] [place], [place] [address]Performed By: #### 67771-4, 04255-4, 2777-1 ####[facility] [id number] [address] Panel Informationon 01-09-2025 Interpretation and review of laboratory resultsNormalCOhioHealth Arthur G.H. Bing, MD, Cancer CenterPHOSPHORUS INORGANICon 05-58-0912Zxptktqly [Mass/Vol]3.2 mg/dL2.7 - 4.8 mg/dLUniversity Hospitals Geneva Medical CenterPhosphate SerPl-mCncon 49-01-6365Bxwwtzowc [Mass/Vol]3.2 mg/dLNormal2.7-4.8CHolmes [facility] on above:Order Comment: Specimen Type: BLOOD SPECIMENOrdering Facility: [facility] Address:[address] [place], [place] [address]Performed By: #### 52008-2, 42857-8, 2777-1 ####[facility] [id number] [place] [address] panel Auto (Bld)on 01-02-2025 Erythrocyte distribution width (RBC) [Ratio]13.4 %11.5 - 15.0 %[facility] Hematocrit (Bld) [Volume fraction]34.2 %Low36.0 - 46.0 %[facility] Hemoglobin (Bld) [Mass/Vol]11.6 g/dL11.5 - 15.5 g/dLUniversity Hospitals Geneva Medical Center Interpretation and review of laboratory resultsAbnormalCSalem Regional Medical CenterH (RBC) [Entitic mass]29.5 pg26.0 - 34.0 pgCSalem Regional Medical CenterHC (RBC) [Mass/Vol]33.9 g/dL30.5 - 36.0 g/dLMercy Health Kings Mills HospitalV (RBC) [Entitic vol]87 fL80.0 - 100.0 fL [facility] Medical CenterNucleated RBC (Bld) [#/Vol]NINFCleveland ClinicPlatelet mean volume (Bld) [Entitic vol]10.3 fL9.0 - 12.7 fLCleveland ClinicPlatelets (Bld) [#/Vol]182 10*3/uLUniversity Hospitals Geneva Medical CenterRBC (Bld) [#/Vol]3.93 10*6/uL3.90 - 5.20 m/uL [facility] Medical CenterWBC (Bld) [#/Vol]5.5 10*3/uLUC Health Erythrocyte distribution width (RBC) [Ratio]13.4 %Ovouce86.5-15.0[facility] on above:Order Comment: Specimen Type: BLOOD SPECIMENOrdering Facility: [facility] Address:[address] [place], [place] [address]Performed By: #### 62508-6 ####[facility] LABCLIA [id number] [place], [place] [address]Pramlsdjqw (Bld) [Volume fraction]34.2 %Low36.0-46.0[facility] on above: Order Comment: Specimen Type: BLOOD SPECIMENOrdering Facility: [facility] Address:[address] [place], [place] [address]Performed By: #### 10696- 2 ####[facility] LABCLIA [id number] [place], [place] [address]Repijfhxeh (Bld) [Mass/Vol]11.6 g/fEXkmwkt20.5-15.5 [facility] on above:Order Comment: Specimen Type: BLOOD SPECIMENOrdering Facility: [facility] Address:[address] [place], [place] [address]Performed By: #### 88156-4 ####[facility] LABIA [id number] [place], [place] [address]YEZ (RBC) [Entitic mass]29.5 beIbyvbk45.0-34.0[facility] on above: Order Comment: Specimen Type: BLOOD SPECIMENOrdering Facility: [facility] Address:[address] [place], [place] [address]Performed By: #### 52902- 2 ####[facility] LABCLIA [id number] [place], [place] [address]NLJA (RBC) [Mass/Vol]33.9 g/rQEnxqad69.5-36.0[facility] on above:Order Comment: Specimen Type: BLOOD SPECIMENOrdering Facility: [facility] Address:[address] [place], [place] [address]Performed By: #### 26589-0 ####[facility] LABCLIA [id number] [place], [place] [address]GAP (RBC) [Entitic vol]87.0 cHSetycl25.0-100.0[facility] on above: Order Comment: Specimen Type: BLOOD SPECIMENOrdering Facility: [facility] Address:[address] [place], [place] [address]Performed By: #### 20848- 2 ####[facility] LABCLIA [id number] [place], [place] [address]Vilvunfov RBC (Bld) [#/Vol]10*3/uLNormal<0.01[facility] on above:Order Comment: Specimen Type: BLOOD SPECIMENOrdering Facility: [facility] Address:[address] [place], [place] [address]Performed By: #### 24498-9 ####[facility] LABCLIA [id number] [place], [place] [address]Ygaolqht mean volume (Bld) [Entitic vol]10.3 fLNormal9.0-12.7CHolmes [facility] on above:Order Comment: Specimen Type: BLOOD SPECIMENOrdering Facility: [facility] Address:[address] [place] [address] Performed By: #### 95753-5 ####[facility] LABCLIA [id number] [place], [place] [address]Qerndfjeh (Bld) [#/Vol]182 10*3/oCIclifm490-269ApivegcjvUniversity Hospitals Health System on above:Order Comment: Specimen Type: BLOOD SPECIMENOrdering Facility: [facility] Address:[address] [place], [place] [address]Performed By: #### 39406-0 ####[facility] LABCLIA [id number] [place], [place] [address]QKQ (Bld) [#/Vol]3.93 10*6/uLNormal3.90-5.20[facility] on above:Order Comment: Specimen Type: BLOOD SPECIMENOrdering Facility: [facility] Address:[address] [place], [place] [address]Performed By: #### 54878-0 ####[facility] LABIA [id number] [place], [place] [address]UTQ (Bld) [#/Vol]5.50 10*3/uLNormal3.70-11.00[facility] on above: Order Comment: Specimen Type: BLOOD SPECIMENOrdering Facility: [facility] Address:[address] [place], [place] [address]Performed By: #### 02016- 2 ####[facility] LABIA [id number] [place], [place] [address]Zcswtufzyfavl metabolic 2000 panelOrdered By: Dona Crowder on 74-26-6010Agdijuk [Mass/Vol]4 g/dL3.9 - 4.9 g/dLBoca Raton ClinicALP [Catalytic activity/Vol]103 U/L34 - 123 U/LCleveland ClinicALT [Catalytic activity/Vol]29 U/L7 - 38 U/LCleveland ClinicAnion gap [Moles/Vol]10 mmol/L8 - 15 mmol/LCleveland ClinicAST [Catalytic activity/Vol]19 U/L13 - 35 U/LCleveland ClinicBilirubin [Mass/Vol]0.5 mg/dL0.2 - 1.3 mg/dLClesouthview medical center ClinicCalcium [Mass/Vol]9.6 mg/dL8.5 - 10.2 mg/dLBoca Raton ClinicChloride [Moles/Vol]100 mmol/L98 - 107 mmol/LCleveland ClinicCO2 [Moles/Vol]26 mmol/L22 - 30 mmol/L [place] ClinicCreatinine [Mass/Vol]0.54 mg/dLLow0.58 - 0.96 mg/dLBoca Raton ClinicGFR/1.73 sq M.predicted among non-blacks MDRD (S/P/Bld) [Vol rate/Area]122 mL/min/{1.73_m2}- PINFClevelClermont County HospitalComment on above:Estimated Glomerular Filtration Rate (eGFR) is calculated using the 2020 CKD-EPI creatinine equation. This equation utilizes serum creatinine, sex, and age as parameters. The creatinine assay has traceable calibration to isotope dilution-mass spectrometry. Refer to KDIGO guidelines for clinical interpretation. In patients with unstable renal function, e.g. those with acute kidney injury, the eGFRmay not accurately reflect actual GFR.Glucose [Mass/Vol]114 mg/eASpae15 - 99 mg/dL [facility] Medical CenterComment on above:The [place] Diabetes Association (ADA) provides guidance for cutoff values for fasting glucose andrandom glucose. The ADA defines fasting as no caloric intake for at least 8 hours. Fasting plasma gl ucose results between 100 to 125 mg/dL indicate [...] Standards of Medical Care in Diabetes 2016, [place] [employer]. Diabetes Care. 2016.39(Suppl 1). Interpretation and review of laboratory resultsAbnormalCleveland ClinicPotassium [Moles/Vol]4.3 mmol/L3.7 - 5.1 mmol/LCleveland ClinicProtein [Mass/Vol]7.1 g/dL 6.3 - 8.0 g/dLCleveland ClinicSodium [Moles/Vol]136 mmol/L136 - 144 mmol/L [facility] nitrogen [Mass/Vol]27 mg/dLHigh7 - 21 mg/dLSelect Medical Specialty Hospital - Youngstownprehensive metabolic 2000 panelon 82-65-2833Ydifbcu [Mass/Vol]4.0 g/dLNormal3.9-4.9CHolmes [facility] on above:Order Comment: Specimen Type: BLOOD SPECIMENOrdering Facility: [facility] Address:[address] [place], [place] [address]Performed By: #### 37717- 8, 55760-9, 2776-07 ####[facility] LABCLIA [id number] [place], [place] [address]UFX [Catalytic activity/Vol]103 U/LNormal 34-123[facility] on above:Order Comment: Specimen Type: BLOOD SPECIMENOrdering Facility: [facility] Address:[address] [place], [place] [address]Performed By: #### 91117-2, , 2776-07 ####[facility] LABIA [id number] [place], [place] [address]HLG [Catalytic activity/Vol]29 U/LNormal7-38[facility] on above:Order Comment: Specimen Type: BLOOD SPECIMENOrdering Facility: [facility] Address:[address] [place], [place] [address]Performed By: #### 68645-6, , 2776-07 ####[facility] LABCLIA [id number] [place], [place] [address]Iqcaw gap [Moles/Vol]10 mmol/LNormal8-15[facility] on above:Order Comment: Specimen Type: BLOOD SPECIMENOrdering Facility: [facility] Address:[address] [place] [address] Performed By: #### 51255-9, 85548-3, 2776- ####[facility] LABCLIA [id number] [place], [place] [address]ZDD [Catalytic activity/Vol]19 U/BCsbjda20-13GionfcqglUniversity Hospitals Health System on above:Order Comment: Specimen Type: BLOOD SPECIMENOrdering Facility: [facility] Address:[address] [place], [place] [address]Performed By: #### 49119- 8, 92409-1, 2776- ####[facility] LABCLIA [id number] [place], [place] [address]Eoaxvsxom [Mass/Vol]0.5 mg/dLNormal0.2-1.3 [facility] on above:Order Comment: Specimen Type: BLOOD SPECIMENOrdering Facility: [facility] Address:[address] [place], [place] [address]Performed By: #### 46491-2, , 2776-07 ####[facility] LABCLIA [id number] [place], [place] [address]Kwcmkda [Mass/Vol]9.6 mg/dLNormal8.5-10.2CHolmes [facility] on above:Order Comment: Specimen Type: BLOOD SPECIMENOrdering Facility: [facility] Address:[address] [place] [address] Performed By: #### 65302-9, , 2776-07 ####[facility] LABCLIA [id number] [place], [place] [address]Peteikgr [Moles/Vol]100 mmol/PGmnhkc15-433TekritfhjUniversity Hospitals Health System on above: Order Comment: Specimen Type: BLOOD SPECIMENOrdering Facility: [facility] Address:[address] [place], [place] [address]Performed By: #### 99037- 8, , 2776- ####[facility] LABCLIA [id number] [place], [place] [address]FG2 [Moles/Vol]26 mmol/OJizunf97-42SgqdhdxhgUniversity Hospitals Health System on above:Order Comment: Specimen Type: BLOOD SPECIMENOrdering Facility: [facility] Address:[address] [place] [address]Bnzjjohus By: #### 43459-6, , 2776-07 ####[facility] LABCLIA [id number] [place], [place] [address]Vscpmneeoc [Mass/Vol]0.54 mg/dLLow0.58-0.96[facility] Comment on above:Order Comment: Specimen Type: BLOOD SPECIMENOrdering Facility: [facility] Address:[address] [place], [place] [address] Performed By: #### 31005-2, , 2776-07 ####[facility] LABCLIA [id number] [place], [place] [address]Dbhydlqywd and Glomerular filtration rate.predicted panel (S/P/Bld)122 mL/min/1.73m???Normal >=60[facility] on above:Order Comment: Specimen Type: BLOOD SPECIMENOrdering Facility: [facility] Address:[address] [place] [address]Sbmdud Comment: Estimated Glomerular Filtration Rate (eGFR) is calculated using the 2020 CKD-EPI creatinine equation. This equation utilizes serum creatinine, sex, and age as parameters. The creatinine assay has traceable calibration to isotope dilution-mass spectrometry. Refer to KDIGO guidelines for clinical interpretation. In patients with unstable renal function, e.g. those with acute kidney injury, the eGFR may not accurately reflect actual GFR.Performed By: #### 58646-7, , 2776-07 ####[facility] LABCLIA [id number] [place], [place] [address]Cvqddlt [Mass/Vol]114 mg/mMXlco99-92UsvmumhkmUniversity Hospitals Health System on above:Order Comment: Specimen Type: BLOOD SPECIMENOrdering Facility: [facility] Address:[address] [place] [address]Lqwlwb Comment: The [place] Diabetes Association (ADA) provides guidance for cutoff [...] unequivocal hyperglycemia, results should be confirmed by repeattesting. In a patient with classic symptoms of hyperglycemia or hyperglycemic crisis, random plasmaglucose results greater than or equal to 200 mg/dL meet the criteria for diagnosis of diabetes.Reference: Standards of Medical Care in Diabetes 2016, [place] [employer]. Diabetes Care. 2016.39(Suppl 1).Performed By: #### 16827-3, 57486-8, 2776-07 ####[facility] LABCLIA [id number] [place], [place] [address]Xmohpafsd [Moles/Vol]4.3 mmol/LNormal3.7-5.1CMercy Health [facility] Comment on above:Order Comment: Specimen Type: BLOOD SPECIMENOrdering Facility: [facility] Address:[address] [place] [address] Performed By: #### 05318-3, , 2776-07 ####[facility] LABIA [id number] [place], [place] [address]Kxsuobu [Mass/Vol]7.1 g/dLNormal6.3-8.0[facility] County HospitalComment on above:Order Comment: Specimen Type: BLOOD SPECIMENOrdering Facility: [facility] Address:[address] [place], [place] [address]Performed By: #### 76974- 8, , 2776-07 ####[facility] LABIA [id number] [place], [place] [address]Modwrb [Moles/Vol]136 mmol/KHgtdcy187-935 [facility] County HospitalComup health system on above:Order Comment: Specimen Type: BLOOD SPECIMENOrdering Facility: [facility] Address:[address] [place] [address]Pojanqoxv By: #### 26992-7, , 2776-07 ####[facility] LABCLIA [id number] [place], [place] [address]Ngrk nitrogen [Mass/Vol]27 mg/dLHigh7-21[facility] on above:Order Comment: Specimen Type: BLOOD SPECIMENOrdering Facility: [facility] Address:[address] [place] [address] Performed By: #### 72720-3, , 2776-07 ####[facility] LABCLIA [id number] [place], [place] [address]CAAXOTGNZea 61-06-0606Nlaekhmtm [Mass/Vol]2.1 mg/dL1.7 - 2.3 mg/dLUniversity Hospitals Geneva Medical CenterMagnesium SerPl-mCncon 64-92-1550Teokekvmc [Mass/Vol]2.1 mg/dLNormal1.7-2.3CHolmes [facility] on above:Order Comment: Specimen Type: BLOOD SPECIMENOrdering Facility: [facility] Address:[address] [place], [place] [address]Performed By: #### 18157-4, , 2776-07 ####[facility] LABCLIA [id number] [place], [place] [address]Xvfjxlkjk [Mass/Vol]on 63-25-0887Ahvmnxgfrbyhfw and review of laboratory resultsNormalCOhioHealth Arthur G.H. Bing, MD, Cancer CenterPHOSPHORUS INORGANICon 01-02-2025 Phosphate [Mass/Vol]3.5 mg/dL2.7 - 4.8 mg/dLUniversity Hospitals Geneva Medical CenterPhosphate SerPl-mCnc on 59-93-7306Qgwhvlmjb [Mass/Vol]3.5 mg/dLNormal2.7-4.8CHolmes [facility] on above:Order Comment: Specimen Type: BLOOD SPECIMENOrdering Facility: [facility] Address:[address] [place], [place] [address]Performed By: #### 61735-8, , 2776-07 ####[facility] LABCLIA [id number] [place], [place] [address]Ayefzvthj [Mass/Vol]on 81-48-7457Czvdhtjsxkbjzl and review of laboratory resultsNormal UC HealthCNPNon 08-06-1974KCAVVgctelWrxttitkw Clinic ClevelandC-REACTIVE PROTEINon 22-24-1150GJE [Mass/Vol]mg/dLNINF - 0.9 mg/dL [facility] panel Auto (Bld)on 92-12-7106Smmddquvnpt distribution width (RBC) [Ratio]13.5 %11.5 - 15.0 %[facility] Geneva Medical CenterHematocrit (Bld) [Volume fraction]36 %36.0 - 46.0 %[facility] Medical CenterHemoglobin (Bld) [Mass/Vol]12.2 g/dL 11.5 - 15.5 g/dLUniversity Hospitals Geneva Medical CenterInterpretation and review of laboratory results NormalMercy Health Kings Mills HospitalH (RBC) [Entitic mass]29.5 pg26.0 - 34.0 pgClevelFederal Correction Institution HospitalHC (RBC) [Mass/Vol]33.9 g/dL30.5 - 36.0 g/dLMercy Health Kings Mills HospitalV (RBC) [Entitic vol]87 fL80.0 - 100.0 fLClevelformerly vidant [facility]au[facility] hospital ClinicNucleated RBC (Bld) [#/Vol]NINF [facility] Medical CenterPlatelet mean volume (Bld) [Entitic vol]11 fL9.0 - 12.7 fL [place] ClinicPlatelets (Bld) [#/Vol]200 10*3/uLUniversity Hospitals Geneva Medical CenterRBC (Bld) [#/Vol]4.14 10*6/uL3.90 - 5.20 m/uLUniversity Hospitals Geneva Medical CenterWBC (Bld) [#/Vol]6.38 10*3/uL UC HealthErythrocyte distribution width (RBC) [Ratio]13.5 %Comiuj63.5-15.0[facility] County HospitalComment on above:Order Comment: Specimen Type: BLOOD SPECIMENOrdering Facility: [facility] Address:[address] [place] [address]Cueinzvlo By: #### 60795-6 ####[facility] LABCLIA [id number] [place] [address] [place] OF AMERICAHematocrit (Bld) [Volume fraction]36.0 %Nzuoom52.0-46.0[facility] on above:Order Comment: Specimen Type: BLOOD SPECIMENOrdering Facility: [facility] Address:[address] [place], [place] [address]Performed By: #### 56143-1 ####[facility] [id number] [place] [address] OF [facility] VALLEY HOSPITALHemoglobin (Bld) [Mass/Vol]12.2 g/dL Jjjfin06.5-15.5CHolmes [facility] on above:Order Comment: Specimen Type: BLOOD SPECIMENOrdering Facility: [facility] Address:[address] [place], [place] [address]Performed By: #### 32508-0 ####[facility] [id number] [place], [place] [address]MCH (RBC) [Entitic mass]29.5 pgNormal 26.0-34.0[facility] on above:Order Comment: Specimen Type: BLOOD SPECIMENOrdering Facility: [facility] Address:[address] [place], [place] [address]Performed By: #### 69243-4 ####[facility] [id number] [address] OF OHIO VALLEY HOSPITALMCHC (RBC) [Mass/Vol]33.9 g/sWNgclcd23.5-36.0[facility] on above:Order Comment: Specimen Type: BLOOD SPECIMENOrdering Facility: [facility] Address:[address] [place], [place] [address]Performed By: #### 33250-7 ####[facility] [id number] [address] (RBC) [Entitic vol]87.0 nHIichmd97.0-100.0[facility] Comment on above:Order Comment: Specimen Type: BLOOD SPECIMENOrdering Facility: [facility] Address:[address] [place] [address] Performed By: #### 10197-8 ####[facility] [id number] [place] [address] [place] AMERICANucleated RBC (Bld) [#/Vol]10*3/uLNormal<0.01[facility] on above:Order Comment: Specimen Type: BLOOD SPECIMENOrdering Facility: [facility] Address:[address] [place], [place] [address]Performed By: #### 94083- 2 ####[facility] [id number] [place] [address] [place] AMERICAPlatelet mean volume (Bld) [Entitic vol]11.0 fLNormal9.0-12.7CHolmes [facility] on above:Order Comment: Specimen Type: BLOOD SPECIMENOrdering Facility: [facility] Address:[address] [place], [place] [address]Performed By: #### 66001- 2 ####[facility] [id number] [place] [address] [place] AMERICAPlatelets (Bld) [#/Vol]200 10*3/uL Bptxns097-634PsdzalvelUniversity Hospitals Health System on above:Order Comment: Specimen Type: BLOOD SPECIMENOrdering Facility: [facility] Address:[address] [place], [place] [address]Performed By: #### 22118-8 ####[facility] [id number] [place] [address] [place] AMERICARBC (Bld) [#/Vol]4.14 10*6/uLNormal3.90-5.20[facility] on above:Order Comment: Specimen Type: BLOOD SPECIMENOrdering Facility: [facility] Address:[address] [place], [place] [address]Performed By: #### 61182-8 ####[facility] [id number] [place] [address] [place] AMERICAWBC (Bld) [#/Vol]6.38 10*3/uLNormal3.70-11.00[facility] Comment on above:Order Comment: Specimen Type: BLOOD SPECIMENOrdering Facility: [facility] Address:[address] [place] [address] Performed By: #### 85976-2 ####[facility] [id number] [place] [address] [place] OF AMERICACNOVon [id number] [facility] HendersonvilleCNPNon [id number] [facility] HospitalCRP SerPl-mCncon [id number] [Mass/Vol]mg/LNormal <0.9ClevelCentral Carolina HospitalComment on above:Order Comment: Specimen Type: BLOOD SPECIMENOrdering Facility: [facility] Address:[address] [place], [place] [address]Performed By: #### 1988-5 ####[facility] [id number] [place] [id number] [place] AMERICACRP [Mass/Vol]on [id number] and review of laboratory resultsNormalCleveland Cleveland Clinic FoundationComprehensive metabolic 2000 panelon 74-25-2533Lagcegj [Mass/Vol]4 g/dL3.9 - 4.9 g/dLBoca Raton ClinicALP [Catalytic activity/Vol]120 U/L34 - 123 U/LCleveland ClinicALT [Catalytic activity/Vol]46 U/LHigh7 - 38 U/LCleveland ClinicAnion gap [Moles/Vol]12 mmol/L8 - 15 mmol/LCleveland ClinicAST [Catalytic activity/Vol]37 U/LHigh13 - 35 U/L [place] ClinicBilirubin [Mass/Vol]0.5 mg/dL0.2 - 1.3 mg/dLUniversity [facility]als [facility] Calcium [Mass/Vol]9.1 mg/dL8.5 - 10.2 mg/dLBoca Raton ClinicChloride [Moles/Vol] 101 mmol/L98 - 107 mmol/LCleveland ClinicCO2 [Moles/Vol]24 mmol/L22 - 30 mmol/L [facility] CenterCreatinine [Mass/Vol]0.53 mg/dLLow0.58 - 0.96 mg/dLUniversity Hospitals Geneva Medical CenterGFR/1.73 sq M.predicted among non-blacks MDRD (S/P/Bld) [Vol rate/Area]122 mL/min/{1.73_m2}- PINFCCorey HospitalComment on above:Estimated Glomerular Filtration Rate (eGFR) is calculated using the 2020 CKD-EPI creatinine equation. This equation utilizes serum creatinine, sex, and age as parameters. The creatinine assay has traceable calibration to isotope dilution-mass spectrometry. Refer to KDIGO guidelines for clinical interpretation. In patients with unstable renal function, e.g. those with acute kidney injury, the eGFRmay not accurately reflect actual GFR.Glucose [Mass/Vol]104 mg/tWPijk04 - 99 mg/dL [facility] Geneva Medical CenterComment on above:The [place] Diabetes Association (ADA) provides guidance for cutoff values for fasting glucose andrandom glucose. The ADA defines fasting as no caloric intake for at least 8 hours. Fasting plasma gl ucose results between 100 to 125 mg/dL indicate [...] Standards of Medical Care in Diabetes 2016, [place] Diabetes Association. Diabetes Care. 2016.39(Suppl 1). Interpretation and review of laboratory resultsAbnormalCleveland ClinicPotassium [Moles/Vol]4.5 mmol/L3.7 - 5.1 mmol/LCleveland ClinicProtein [Mass/Vol]7.2 g/dL 6.3 - 8.0 g/dLBoca Raton ClinicSodium [Moles/Vol]137 mmol/L136 - 144 mmol/L [facility] CenterUrea nitrogen [Mass/Vol]20 mg/dL7 - 21 mg/dLUniversity [facility]als [facility] Center Albumin [Mass/Vol]4.0 g/dLNormal3.9-4.9CHolmes [facility] on above:Order Comment: Specimen Type: BLOOD SPECIMENOrdering Facility: [facility] Address:[address] [place], [place] [address]Performed By: #### 13824-7, 34680-0, 2776- ####[facility] [id number] [place] [address] [place] AMERICAALP [Catalytic activity/Vol]120 U/TSkqkht28-081GdsqandzkUniversity Hospitals Health System on above:Order Comment: Specimen Type: BLOOD SPECIMENOrdering Facility: [facility] Address:[address] [place], [place] [address]Performed By: #### 62232- 8, 15532-5, 2776- ####[facility] [id number] [place] [address] [place] AMERICAALT [Catalytic activity/Vol]46 U/LHigh7-38[facility] on above:Order Comment: Specimen Type: BLOOD SPECIMENOrdering Facility: [facility] Address:[address] [place], [place] [address]Performed By: #### 06390- 8, 52413-8, 2776- ####[facility] [id number] [place] [address] [place] AMERICAAnion gap [Moles/Vol] 12 mmol/LNormal8-15[facility] on above:Order Comment: Specimen Type: BLOOD SPECIMENOrdering Facility: [facility] Address:[address] [place], [place] [address]Performed By: #### 77088-5, 02589-5, 7-1 ####[facility] [id number] [place] [id number] [place] AMERICAAST [Catalytic activity/Vol]37 U/XTohk00-02BktxgnnrqUniversity Hospitals Health System on above:Order Comment: Specimen Type: BLOOD SPECIMENOrdering Facility: [facility] Address:[address] [place], [place] [address]Performed By: #### 88949-6, 22955-5, 2776-07 ####[facility] [id number] [place] [address] [place] AMERICABilirubin [Mass/Vol]0.5 mg/dL Normal0.2-1.3CHolmes [facility] on above:Order Comment: Specimen Type: BLOOD SPECIMENOrdering Facility: [facility] Address:[address] [place], [place] [address]Performed By: #### 57100-3, , 2776-07 ####[facility] [id number] [place] [address] [place] AMERICACalcium [Mass/Vol]9.1 mg/dLNormal 8.5-10.2CHolmes [facility] on above:Order Comment: Specimen Type: BLOOD SPECIMENOrdering Facility: [facility] Address:[address] [place], [place] [address]Performed By: #### 13905-4, , 2776-07 ####[facility] [id number] [place] [address] [place] AMERICAChloride [Moles/Vol]101 mmol/L Ueumya44-142WtazkmabzUniversity Hospitals Health System on above:Order Comment: Specimen Type: BLOOD SPECIMENOrdering Facility: [facility] Address:[address] [place], [place] [address]Performed By: #### 84285-9, , 2776-07 ####[facility] [id number] [place] [id number] [place] AMERICACO2 [Moles/Vol]24 mmol/LNormal 22-30[facility] on above:Order Comment: Specimen Type: BLOOD SPECIMENOrdering Facility: [facility] Address:[address] [place], [place] [address]Performed By: #### 59565-5, , 2776-07 ####[facility] [id number] [place] [address] [place] AMERICACreatinine [Mass/Vol]0.53 mg/dLLow0.58-0.96[facility] on above:Order Comment: Specimen Type: BLOOD SPECIMENOrdering Facility: [facility] Address:[address] [place], [place] [address]Performed By: #### 15559-7, , 2776-07 ####[facility] [id number] [place] [address] [place] AMERICACreatinine and Glomerular filtration rate.predicted panel (S/P/Bld)122 mL/min/1.73m???Normal>=60[facility] on above:Order Comment: Specimen Type: BLOOD SPECIMENOrdering Facility: [facility] Address:[address] [place], [place] [address]Result Comment: Estimated Glomerular Filtration Rate (eGFR) is calculated using the 2020 CKD-EPI creatinine equation. This equation utilizes serum creatinine, sex, and age as parameters. The creatinine assay has traceable calibration to isotope dilution- mass spectrometry. Refer to KDIGO guidelines for clinical interpretation. In patients with unstable renal function, e.g. those with acute kidney injury, the eGFR may not accurately reflect actual GFR.Performed By: #### 92338-4, , 2776-07 ####[facility] [id number] [place] [id number] [place] AMERICAGlucose [Mass/Vol]104 mg/dLHigh 74-99[facility] on above:Order Comment: Specimen Type: BLOOD SPECIMENOrdering Facility: [facility] Address:[address] [place], [place] [address]Result Comment: The [place] Diabetes Association (ADA) provides guidance for cutoff [...] unequivocal hyperglycemia, results should be confirmed by repeattesting. In a patient with classic symptoms of hyperglycemia or hyperglycemic crisis, random plasmaglucose results greater than or equal to 200 mg/dL meet the criteria for diagnosis of diabetes.Reference: Standards of Medical Care in Diabetes 2016, [place] Diabetes Association. Diabetes Care. 2016.39(Suppl 1).Performed By: #### 02156- 8, 01450-4, 2776-07 ####[facility] [id number] [place] [address] [place] AMERICAPotassium [Moles/Vol] 4.5 mmol/LNormal3.7-5.1CHolmes [facility] on above:Order Comment: Specimen Type: BLOOD SPECIMENOrdering Facility: [facility] Address:[address] [place], [place] [address]Performed By: #### 98823-9, , 2776-07 ####[facility] [id number] [place] [address] [place] AMERICAProtein [Mass/Vol]7.2 g/dLNormal 6.3-8.0[facility] on above:Order Comment: Specimen Type: BLOOD SPECIMENOrdering Facility: [facility] Address:[address] [place], [place] [address]Performed By: #### 45759-9, 71905-4, 2776-07 ####[facility] [id number] [place] [address] [place] AMERICASodium [Moles/Vol]137 mmol/EAygrvc455-712LxsadchlnUniversity Hospitals Health System on above:Order Comment: Specimen Type: BLOOD SPECIMENOrdering Facility: [facility] Address:[address] [place], [place] [address]Performed By: #### 72284-3, 62207-3, 2777-1 ####[facility] [id number] [place] [address] [place] AMERICAUrea nitrogen [Mass/Vol]20 mg/dLNormal7-21[facility] on above:Order Comment: Specimen Type: BLOOD SPECIMENOrdering Facility: [facility] Address:[address] [place], [place] [address]Performed By: #### 17093-8, 82006-0, 2777-1 ####[facility] [id number] [place] [address] [place] AMERICAMAGNESIUMon 42-71-2756Mfdnvwkzx [Mass/Vol]2 mg/dL1.7 - 2.3 mg/dL [facility] CenterMANGANESE BLDon 69-32-3043Sdvswwjoz (Bld) [Mass/Vol]10.3 ug/L Normal4.4-15.2CHolmes [facility] on above:Order Comment: Specimen Type: BLOOD SPECIMENOrdering Facility: [facility] Address:[address] [place], [place] [address]Result Comment: This test was developed, and its performance characteristics determined by the [facility] Department of Pathology and Laboratory Medicine. It has not been cleared or approved bythe FDA. The [facility] Department of Pathology and Laboratory Medicine is regulated under CLIA as qualified to perform high-complexity testing. This test is used for clinical purposes. It should not be regarded as investigational or for research.Performed By: #### JUAN ####[facility] [id number] [place] [address] [place] Magnesium SerPl-mCncon 61-16-8431Wujyiguyh [Mass/Vol]2.0 mg/dLNormal1.7-2.3 [facility] on above:Order Comment: Specimen Type: BLOOD SPECIMENOrdering Facility: [facility] Address:[address] [place], [place] [address]Performed By: #### 46817-0, 11018-9, 2777-1 ####[facility] [id number] [place] [id number] [place] AMERICANo Panel Informationon 37-22-7380Uowlekwkuhqwzt and review of laboratory resultsNormalCOhioHealth Arthur G.H. Bing, MD, Cancer CenterPHOSPHORUS INORGANICon 74-95-8015Yppzqjyfj [Mass/Vol]3.7 mg/dL2.7 - 4.8 mg/dLUniversity Hospitals Geneva Medical CenterPhosphate SerPl-mCncon 72-69-7018Akcwqmihr [Mass/Vol]3.7 mg/dLNormal2.7-4.8CHolmes [facility] on above:Order Comment: Specimen Type: BLOOD SPECIMENOrdering Facility: [facility] Address:[address] [place], [place] [address]Performed By: #### 64189-2, 33468-1, 2777-1 ####[facility] [id number] [address] STATES OF AMERICASelenium Bld-[facility] 36-31-8711Kqddlxsu (Bld) [Mass/Vol]107.7 ug/TIsxnye78.0-234.0[facility] on above:Order Comment: Specimen Type: BLOOD SPECIMENOrdering Facility: [facility] Address:[address] [place], [place] [address]Result Comment: This test was developed, and its performance characteristics determined by the [facility] Department of Pathology and Laboratory Medicine. It has not been cleared or approved bythe FDA. The [facility] Department of Pathology and Laboratory Medicine is regulated under CLIA as qualified to perform high- complexity testing. This test is used for clinical purposes. It should not be regarded as investigational or for research.Performed By: #### 5722-4 ####[facility]ITALCLIA [id number] [place] [address] [place] AMERICAUS ARM VEIN DVT MARKO VAS LABon 24-92-4582TT ARM VEIN DVT MARKO VAS LABNormalCMercy Health Urbana HospitalUS Upper extremity veins - bilateralon 12-29-2024 Non-Invasive Vascular Laboratory [facility] J35 Upper Extremity Venous Duplex Bilateral/Complete Date [...] thrombosis. High bifurcation noted. Technologist: Sarahy Holt T Ordering physician: MARIAM DUPONT Interpreting physician: Jose Manuel Biswas DO Final See Link below for ImageHEART AND VASCULAR INSTITUTEUniversity Hospitals Geneva Medical CenterCNNURSEon 29-53-1975EYJMVUKNrujsiNcnnvvtpd Clinic ClevelandCNOV 25-54-7383CVXTSmnpye [facility] Memorial HospitalalCleveland Adventhealth HendersonvilleCNCOon 12-14-2024 CNCOLetter TextNormalCleveland Adventhealth HendersonvilleCoding Queryon 43-73-8695Kkqsct [id number]#1.00OTGTSelect Medical Specialty Hospital - Cincinnati North CNPNon 77-55-1090WXKFEqrdvaXziewgrmb Clinic ClevelandCNPNon 40-98-6078BUQFMqtert [facility]25([place])D3 SerPl-mCncon 143455-kejkxezgyvxhfl D3 [Mass/Vol]32.2 ng/gJOfbtds66.0-80.0[facility] on above: Order Comment: Specimen Type: BLOOD SPECIMENOrdering Facility: [facility] Address:[address] [place], [place] [address]Result Comment: Classification of 25 [place] Vitamin D status:Deficiency/Insufficiency: < or = 30 ng/ml.Sufficiency/Optimal Levels: 31-80 ng/mLToxicity: > 100 ng/mL.Test performed by chemiluminescent immunoassay.Performed By: #### 1989-3 ####[facility] [id number] [place] [address] [place] [facility]LEY HOSPITALBD DXA - AXIAL SKELETONon 69-33-7142OF DXA - AXIAL SKELETONNormalCMercy Health Urbana HospitalBD DXA TRABECLR BONE SCORE (TBS)on 98-77-7008JT DXA TRABECLR BONE SCORE (TBS)NormalWood County HospitalBLOOD TB SCREENon 11-07-2024M. tuberculosis tuberculin stim IFN- g Ql (Bld)NegativeNormalClevelWayne HealthCare Main Campus on above:Order Comment: Specimen Type: BLOOD SPECIMENOrdering Facility: [facility] Address:[address] [place], [place] [id number] By: #### INFTBP ####[facility] LABIA [id number] [place] [address] [place] AMERICAMITOGEN MINUS NIL>9.95Normal >=0.50[facility] on above:Order Comment: Specimen Type: BLOOD SPECIMENOrdering Facility: [facility] Address:[address] [place], [place] [address]Performed By: #### INFTBP ####[facility] LABCL[facility] [id number] [place] [address] [place] AMERICATB GAMMA INTERPRETATIONNormalCHolmes County [facility] on above:Order Comment: Specimen Type: BLOOD SPECIMENOrdering Facility: [facility] Address:[address] [place] [address] Performed By: #### INFTBP ####[facility] LABCL[facility] [id number] [place] [address] [place] TB NIL0.05 IU/mLNormal<=8.00Wood County HospitalComment on above:Order Comment: Specimen Type: BLOOD SPECIMENOrdering Facility: [facility] Address:[address] [place], [place] [address]Performed By: #### INFTBP ####[facility] LABCL[facility] [id number] [place] [address] [place] AMERICATB1 AG MINUS NIL0.05 IU/mLNormal <0.35[facility] on above:Order Comment: Specimen Type: BLOOD SPECIMENOrdering Facility: [facility] Address:[address] [place], [place] [address]Performed By: #### INFTBP ####[facility] [id number] [place] [address] [place] AMERICATB2 AG MINUS NIL0.02 IU/mLNormal<0.35[facility] Comment on above:Order Comment: Specimen Type: BLOOD SPECIMENOrdering Facility: [facility] Address:[address] [place] [address] Performed By: #### INFTBP ####[facility] LABCL[facility] [id number] [place] [address] [place] CBC W Auto Differential panel (Bld)on 50-88-4324Didvubvql (Bld) [#/Vol]0 10*3/uL NINMercy Health Defiance HospitalBasophils/100 WBC (Bld)0 %[facility] Medical CenterDifferential cell count method Nom (Bld)ManualCleMiami Valley HospitalEosinophils (Bld) [#/Vol]0.08 10*3/uLNINFUniversity Hospitals Geneva Medical CenterEosinophils/100 WBC (Bld)2 %[facility] Erythrocyte distribution width (RBC) [Ratio]14.3 %11.5 - 15.0 %[facility] Hematocrit (Bld) [Volume fraction]35.4 %Low36.0 - 46.0 %[facility] Hemoglobin (Bld) [Mass/Vol]11.6 g/dL11.5 - 15.5 g/dLUniversity Hospitals Geneva Medical Center Interpretation and review of laboratory resultsAbnormalCCorey Hospital Lymphocytes (Bld) [#/Vol]1.45 10*3/uLUniversity Hospitals Geneva Medical CenterLymphocytes/100 WBC (Bld)35 %[facility] Medical CenterMCH (RBC) [Entitic mass]28.6 pg26.0 - 34.0 pgCCorey Hospital MCHC (RBC) [Mass/Vol]32.8 g/dL30.5 - 36.0 g/dLUniversity Hospitals Geneva Medical CenterMCV (RBC) [Entitic vol]87.4 fL80.0 - 100.0 fLCCorey HospitalMonocytes (Bld) [#/Vol]0.17 10*3/uL NINMercy Health Defiance HospitalMonocytes/100 WBC (Bld)4 %[facility] Medical CenterNeutrophils (Bld) [#/Vol]2.44 10*3/uLUniversity Hospitals Geneva Medical CenterNeutrophils/100 WBC (Bld)59 %[facility] Nucleated RBC (Bld) [#/Vol]NINMercy Health Defiance HospitalNucleated RBC/100 WBC (Bld) [Ratio]0 %/100 WBCUniversity Hospitals Geneva Medical CenterOvalocytes LM Ql (Bld)FewUniversity Hospitals Geneva [facility] Center Platelet mean volume (Bld) [Entitic vol]10.7 fL9.0 - 12.7 fLCCorey Hospital Platelets (Bld) [#/Vol]203 10*3/uLUniversity Hospitals Geneva Medical CenterPlatelets Estimate (Bld) [#/Vol]AdequateCleMiami Valley HospitalRBC (Bld) [#/Vol]4.05 10*6/uL3.90 - 5.20 m/uL [facility] CenterRed Cell MorphReviewed: see results of individual morphologies [facility] Medical CenterWBC (Bld) [#/Vol]4.14 10*3/uLUniversity Hospitals Geneva Medical CenterThis is an appended report. These results have been appended to a previously verified report. UC HealthBasophils (Bld) [#/Vol]0.00 10*3/uLNormal<0.11 [facility] on above:Order Comment: Specimen Type: BLOOD SPECIMENOrdering Facility: [facility] Address:[address] [place], [place] [address]Performed By: #### 52329-8 ####[facility] [id number] [place] [address] [place] AMERICABasophils/100 WBC (Bld)0.0 %NormalUniversity Hospitals Health System on above:Order Comment: Specimen Type: BLOOD SPECIMENOrdering Facility: [facility] Address:[address] [place], [place] [address]Performed By: #### 03957-3 ####[facility] [id number] [place] [address] [place] AMERICADifferential cell count method Nom (Bld)ManualNormalCHolmes County [facility] on above:Order Comment: Specimen Type: BLOOD SPECIMENOrdering Facility: [facility] Address:[address] [place], [place] [address]Performed By: #### 26745-5 ####[facility] [id number] [place] [address] [place] AMERICAEosinophils (Bld) [#/Vol]0.08 10*3/uL Normal<0.46[facility] on above:Order Comment: Specimen Type: BLOOD SPECIMENOrdering Facility: [facility] Address:[address] [place], [place] [address]Performed By: #### 15025-8 ####[facility] [id number] [place] [address] [place] AMERICAEosinophils/100 WBC (Bld)2.0 %NormalWood County Hospital Comment on above:Order Comment: Specimen Type: BLOOD SPECIMENOrdering Facility: [facility] Address:[address] [place] [address] Performed By: #### 69219-4 ####[facility] [id number] [place] [address] [place] AMERICAErythrocyte distribution width (RBC) [Ratio]14.3 %Qoozqz05.5-15.0[facility] Comment on above:Order Comment: Specimen Type: BLOOD SPECIMENOrdering Facility: [facility] Address:[address] [place] [address] Performed By: #### 09078-0 ####[facility] [id number] [place] [address] [place] AMERICAHematocrit (Bld) [Volume fraction]35.4 %Low36.0-46.0Wood County HospitalComment on above:Order Comment: Specimen Type: BLOOD SPECIMENOrdering Facility: [facility] Address:[address] [place], [place] [address]Performed By: #### 09769-6 ####[facility] [id number] [place] [address] [place] AMERICAHemoglobin (Bld) [Mass/Vol]11.6 g/uLYttivy27.5-15.5CMercy Health Urbana HospitalComment on above:Order Comment: Specimen Type: BLOOD SPECIMENOrdering Facility: [facility] Address:[address] [place], [place] [address]Performed By: #### 15727-2 ####[facility] [id number] [place] [address] [place] AMERICALymphocytes (Bld) [#/Vol]1.45 10*3/uL Normal1.00-4.00[facility] on above:Order Comment: Specimen Type: BLOOD SPECIMENOrdering Facility: [facility] Address:[address] [place], [place] [address]Performed By: #### 40331-9 ####[facility] [id number] [address] STREETLymphocytes/100 WBC (Bld)35.0 %Normal [facility] on above:Order Comment: Specimen Type: BLOOD SPECIMENOrdering Facility: [facility] Address:[address] [place], [place] [address]Performed By: #### 94009-7 ####[facility] [id number] [place] [address] (RBC) [Entitic mass]28.6 bvPyxbjd72.0-34.0[facility] Comment on above:Order Comment: Specimen Type: BLOOD SPECIMENOrdering Facility: [facility] Address:[address] [place] [address] Performed By: #### 40211-0 ####[facility] [id number] [place], [place] [address]HC (RBC) [Mass/Vol]32.8 g/uAQjwpll79.5-36.0[facility] on above: Order Comment: Specimen Type: BLOOD SPECIMENOrdering Facility: [facility] Address:[address] [place], [place] [address]Performed By: #### 53325- 8 ####[facility] [id number] [place] [address] (RBC) [Entitic vol]87.4 fLNormal 80.0-100.0[facility] on above:Order Comment: Specimen Type: BLOOD SPECIMENOrdering Facility: [facility] Address:[address] [place], [place] [address]Performed By: #### 72575-7 ####[facility] [id number] [place] [address] [place] AMERICAMonocytes (Bld) [#/Vol]0.17 10*3/uLNormal<0.87[facility] on above:Order Comment: Specimen Type: BLOOD SPECIMENOrdering Facility: [facility] Address:[address] [place], [place] [address]Performed By: #### 27730-9 ####[facility] [id number] [place] [address] [place] AMERICAMonocytes/100 WBC (Bld)4.0 %NormalUniversity Hospitals Health System on above:Order Comment: Specimen Type: BLOOD SPECIMENOrdering Facility: [facility] Address:[address] [place], [place] [address]Performed By: #### 29093-5 ####[facility] [id number] [place] [address] [place] OF AMERICANeutrophils (Bld) [#/Vol]2.44 10*3/uLNormal1.45-7.50[facility] on above:Order Comment: Specimen Type: BLOOD SPECIMENOrdering Facility: [facility] Address:[address] [place], [place] [address]Performed By: #### 83991-6 ####[facility] [id number] [place] [address] [place] AMERICANeutrophils/100 WBC (Bld)59.0 %Normal [facility] on above:Order Comment: Specimen Type: BLOOD SPECIMENOrdering Facility: [facility] Address:[address] [place], [place] [address]Performed By: #### 78154-9 ####[facility] [id number] [place] [address] [place] AMERICANucleated RBC (Bld) [#/Vol]10*3/uLNormal<0.01[facility] Comment on above:Order Comment: Specimen Type: BLOOD SPECIMENOrdering Facility: [facility] Address:[address] [place] [address] Performed By: #### 84323-1 ####[facility] [id number] [place] [address] [place] AMERICANucleated RBC/100 WBC (Bld) [Ratio]0.0 /100 WBCNormalCMercy Health Urbana HospitalComment on above:Order Comment: Specimen Type: BLOOD SPECIMENOrdering Facility: [facility] Address:[address] [place], [place] [address]Performed By: #### 02158-2 ####[facility] [id number] [place] [address] [place] AMERICAOvalocytes LM Ql (Bld)FewNormal [facility] County HospitalComment on above:Order Comment: Specimen Type: BLOOD SPECIMENOrdering Facility: [facility] Address:[address] [place], [place] [address]Performed By: #### 15273-6 ####[facility] [id number] [place] [address] [place] AMERICAPlatelet mean volume (Bld) [Entitic vol]10.7 fLNormal9.0-12.7CMercy Health Urbana HospitalComup health system on above:Order Comment: Specimen Type: BLOOD SPECIMENOrdering Facility: [facility] Address:[address] [place], [place] [address]Performed By: #### 16236-6 ####[facility] [id number] [place] [address] [place] AMERICAPlatelets (Bld) [#/Vol]203 10*3/yXHynhyc904-719BtlttgfnvWood County Hospital Comment on above:Order Comment: Specimen Type: BLOOD SPECIMENOrdering Facility: [facility] Address:[address] [place] [address] Performed By: #### 29348-7 ####[facility] [id number] [address]ETPlatelets Estimate (Bld) [#/Vol]AdequateNormalCHolmes County Joel Pomerene [facility] Hospital on above: Order Comment: Specimen Type: BLOOD SPECIMENOrdering Facility: [facility] Address:[address] [place], [place] [address]Performed By: #### 57619- 8 ####[facility] [id number] [place], [place] [address]RB (d) [#/Vol]4.05 10*6/uLNormal 3.90-5.20[facility] on above:Order Comment: Specimen Type: BLOOD SPECIMENOrdering Facility: [facility] Address:[address] [place], [place] [address]Performed By: #### 10366-2 ####[facility] [id number] [address]ETRED CELL MORPHReviewed: see results of individual morphologies NormalUniversity Hospitals Health System on above:Order Comment: Specimen Type: BLOOD SPECIMENOrdering Facility: [facility] Address:[address] [place], [place] [address]Performed By: #### 25351-7 ####[facility] [id number] [address]ETW (Bld) [#/Vol]4.14 10*3/uLNormal3.70-11.00[facility] on above:Order Comment: Specimen Type: BLOOD SPECIMENOrdering Facility: [facility] Address:[address] [place], [place] [address]Performed By: #### 25308-6 ####[facility] [id number] [place], [place] [address]K [place]63[place]VF[place]AUW[place] [address] [place] AMERICACNNURSEon 63-56-[address]SFCToigfxQ[address]utzfey [address] ClevelandCNOVon 23-62-8574DOXFQkcmleUtuzicexh Adventhealth HendersonvilleCNPTOUTREACHon 11-07-2024 CNPTOUTREACHNormalCMercy Health Urbana HospitalCobalamin (Vitamin B12) [Mass/Vol]on 10-23-9959Ivwdtvsirguynw and review of laboratory resultsNoWyandot Memorial HospitalComprehensive metabolic 2000 panelon 87-36-6378Ltaidrl [Mass/Vol]4.2 g/dL3.9 - 4.9 g/dLBoca Raton ClinicALP [Catalytic activity/Vol]87 U/L34 - 123 U/LCleveland ClinicALT [Catalytic activity/Vol]21 U/L7 - 38 U/L [facility] CenterAnion gap [Moles/Vol]11 mmol/L8 - 15 mmol/LCleveland ClinicAST [Catalytic activity/Vol]20 U/L13 - 35 U/LCleveland ClinicBilirubin [Mass/Vol]0.4 mg/dL0.2 - 1.3 mg/dLBoca Raton ClinicCalcium [Mass/Vol]9.1 mg/dL8.5 - 10.2 mg/dL [place] ClinicChloride [Moles/Vol]102 mmol/L98 - 107 mmol/LCleveland ClinicCO2 [Moles/Vol]25 mmol/L22 - 30 mmol/LCleveland ClinicCreatinine [Mass/Vol]0.61 mg/dL0.58 - 0.96 mg/dLUniversity Hospitals Geneva Medical CenterGFR/1.73 sq M.predicted among non-blacks MDRD (S/P/Bld) [Vol rate/Area]118 mL/min/{1.73_m2}- PINFCleveland ClinicComment on above:Estimated Glomerular Filtration Rate (eGFR) is calculated using the 2020 CKD-EPI creatinine equation. This equation utilizes serum creatinine, sex, and age as parameters. The creatinine assay has traceable calibration to isotope dilution-mass spectrometry. Refer to KDIGO guidelines for clinical inte rpretation. In patients with unstable renal function, e.g. those with acute kidney injury, the eGFRmay not accurately reflect actual GFR.Glucose [Mass/Vol] 100 mg/aLUmwq10 - 99 mg/dLChillicothe VA Medical Center on above:The [place] Diabetes Association (ADA) provides guidance for cutoff [...] Standards of Medical Care in Diabetes 2016, [place] Diabetes Association. Diabetes Care. 2016.39(Suppl 1). Interpretation and review of laboratory resultsAbnormalCleveland ClinicPotassium [Moles/Vol]4.5 mmol/L3.7 - 5.1 mmol/LCnewark hospital ClinicProtein [Mass/Vol]7.4 g/dL 6.3 - 8.0 g/dLProMedica Toledo Hospitalodium [Moles/Vol]138 mmol/L136 - 144 mmol/L [facility] CenterUrea nitrogen [Mass/Vol]25 mg/dLHigh7 - 21 mg/dLWood County Hospital ClinicAlbumin [Mass/Vol]4.2 g/dLNormal3.9-4.9CMercy Health Urbana HospitalComment on above:Order Comment: Specimen Type: BLOOD SPECIMENOrdering Facility: [facility] Address:[address] [place], [place] [address]Performed By: #### 61142-5 ####[facility] [id number] [place] [address] [place] AMERICAALP [Catalytic activity/Vol]87 U/NRbbdvb68-907FurcwrmrcWood County Hospital Comment on above:Order Comment: Specimen Type: BLOOD SPECIMENOrdering Facility: [facility] Address:[address] [place] [address] Performed By: #### 54091-6 ####[facility] [id number] [place] [address] [place] AMERICAALT [Catalytic activity/Vol]21 U/LNormal7-38[facility] on above:Order Comment: Specimen Type: BLOOD SPECIMENOrdering Facility: [facility] Address:[address] [place], [place] [address]Performed By: #### 06307- 8 ####[facility] [id number] [place] [address] [place] AMERICAAnion gap [Moles/Vol]11 mmol/LNormal 8-15Wood County HospitalComment on above:Order Comment: Specimen Type: BLOOD SPECIMENOrdering Facility: [facility] Address:[address] [place], [place] [address]Performed By: #### 32485-3 ####[facility] [id number] [place] [address] [place] AMERICAAST [Catalytic activity/Vol]20 U/CFekmhq45-29TwxhgczwkUniversity Hospitals Health System on above:Order Comment: Specimen Type: BLOOD SPECIMENOrdering Facility: [facility] Address:[address] [place], [place] [address]Performed By: #### 73588-8 ####[facility] [id number] [place] [address] [place] AMERICABilirubin [Mass/Vol]0.4 mg/dLNormal0.2-1.3CMercy Health Urbana Hospital Comment on above:Order Comment: Specimen Type: BLOOD SPECIMENOrdering Facility: [facility] Address:[address] [place] [address] Performed By: #### 97252-0 ####[facility] [id number] [place] [address] [place] AMERICACalcium [Mass/Vol]9.1 mg/dLNormal8.5-10.2CHolmes County [facility] on above: Order Comment: Specimen Type: BLOOD SPECIMENOrdering Facility: [facility] Address:[address] [place], [place] [address]Performed By: #### 60112- 8 ####[facility] [id number] [place] [address] [place] AMERICAChloride [Moles/Vol]102 mmol/LNormal 98-107[facility] on above:Order Comment: Specimen Type: BLOOD SPECIMENOrdering Facility: [facility] Address:[address] [place], [place] [address]Performed By: #### 58938-7 ####[facility] [id number] [place] [address] [place] AMERICACO2 [Moles/Vol]25 mmol/XQygkla21-06JgyndjklvUniversity Hospitals Health System on above:Order Comment: Specimen Type: BLOOD SPECIMENOrdering Facility: [facility] Address:[address] [place] [address] Performed By: #### 30408-1 ####[facility] [id number] [place] [address] [place] AMERICACreatinine [Mass/Vol]0.61 mg/dLNormal0.58-0.96[facility] on above: Order Comment: Specimen Type: BLOOD SPECIMENOrdering Facility: [facility] Address:[address] [place], [place] [address]Performed By: #### 61195- 8 ####[facility] [id number] [place] [address] [place] AMERICACreatinine and Glomerular filtration rate.predicted panel (S/P/Bld)118 mL/min/1.73m???Normal>=60[facility] on above:Order Comment: Specimen Type: BLOOD SPECIMENOrdering Facility: [facility] Address:[address] [place], [place] [address]Result Comment: Estimated Glomerular Filtration Rate (eGFR) is calculated using the 2020 CKD-EPI creatinine equation. This equation utilizes serum creatinine, sex, and age as parameters. The creatinine assay has traceable calibration to isotope dilution-mass spectrometry. Refer to KDIGO guidelines for clinical interpretation. In patients with unstable renal function, e.g. those with acute kidney injury, the eGFR may not accurately reflect actual GFR. Performed By: #### 23444-0 ####[facility] [id number] [place] [address] [place] AMERICAGlucose [Mass/Vol]100 mg/vBGtov57-48KenuoennaWood County HospitalComment on above:Order Comment: Specimen Type: BLOOD SPECIMENOrdering Facility: [facility] Address:[address] [place], [place] [address]Result Comment: The [place] Diabetes Association (ADA) provides guidance for cutoff values for fast ing glucose and random glucose. The ADA defines fasting as no caloric intake for at least 8 hours. Fasting plasma glucose results between 100 to 125 mg/dL indicate increased risk for diabetes (prediabetes).Fasting plasma glucose results greater than or equal to 126 mg/dL meet the criteria for diagnosis of diabetes. In the absence of unequivocal hyperglycemia, results should be confirmed by repeattesting. In a patient with classic symptoms of hyperglycemia or hyperglycemic crisis, random plasmaglucose results greater than or equal to 200 mg/dL meet the criteria for diagnosis of diabetes.Reference: Standards of Medical Care in Diabetes 2016, [place] Diabetes Association. Diabetes Care. 2016.39(Suppl 1).Performed By: #### 37869-7 ####[facility] [id number] [place] [address] [place] AMERICAPotassium [Moles/Vol]4.5 mmol/LNormal3.7-5.1CMercy Health Urbana Hospital Comment on above:Order Comment: Specimen Type: BLOOD SPECIMENOrdering Facility: [facility] Address:[address] [id number] Performed By: #### 20742-7 ####[facility] [id number] [place] [address] [place] AMERICAProtein [Mass/Vol]7.4 g/dLNormal6.3-8.0[facility] County HospitalComment on above:Order Comment: Specimen Type: BLOOD SPECIMENOrdering Facility: [facility] Address:[address] [place], [place] [address]Performed By: #### 97307- 8 ####[facility] [id number] [place] [address] [place] [facility]PITALSodium [Moles/Vol]138 mmol/LNormal 136-144Wood County HospitalComment on above:Order Comment: Specimen Type: BLOOD SPECIMENOrdering Facility: [facility] Address:[address] [place], [place] [address]Performed By: #### 35039-3 ####[facility] [id number] [place] [address] [place] AMERICAUrea nitrogen [Mass/Vol]25 mg/dLHigh7-21[facility] Comment on above:Order Comment: Specimen Type: BLOOD SPECIMENOrdering Facility: [facility] Address:[address] [place] [address] Performed By: #### 35846-8 ####[facility] [id number] [place] [address] [place] AMERICADXA Femur [T- score] Bone densityon 11-07-2024* * *Final Report* * * DATE OF EXAM: Nov 07 2024 11:15AM B 0801 - BD DXA TRABECLR BONE SCORE (TBS) / PROCEDURE REASON: Crohn's disease of small and large intestines with complication (HCC) * * * * Physician Interpretation * * * * EXAMINATION: DXA BONE DENSITOMETRY BD DXA TRABECLR BONE SCORE (TBS), BD DXA - AXIAL SKELETON PATIENT DEMOGRAPHICS: Age: 39 years, Gender: Female SCANNER INFORMATION: DXA Model: A21 [employer] A [id number] Date Scanned: 11/07/2024 11:15 AM CLINICAL HISTORY: [...] had a previous bone density in the [facility] or the previous bone density was performed on a different DXA machine (new, updated model or different location) within the [facility]. VERTEBRAL FRACTURE ASSESSMENT Not performed. TRABECULAR BONE ASSESSMENT TBS score: 1.214 Bone micro-architecture: Degraded DIVISION OF RADIOLOGYProvider, [facility] [place] - 11/07/2024 * * *Final Report* * * DATE OF EXAM: Nov 07 2024 11:15AM MCB 0801 - BD DXA TRABECLR BONE SCORE (TBS) / PROCEDURE REASON: Crohn's disease of small and large intestines with complication (HCC) * * * * Physician Interpretation * * * * EXAMINATION: DXA BONE DENSITOMETRY BD DXA TRABECLR BONE SCORE (TBS), BD DXA - AXIAL SKELETON PATIENT DEMOGRAPHICS: Age: 39 years, Gender: Female SCANNER INFORMATION: DXA Model: A21 [employer] A [id number] Date Scanned: 11/07/2024 11:15 AM CLINICAL HISTORY: [...] had a previous bone density in the [facility] or the previous bone density was performed on a different DXA machine (new, updated model or different location) within the [facility]. VERTEBRAL FRACTURE ASSESSMENT Not performed. TRABECULAR BONE [...] FOR MORE INFORMATION ABOUT DIAGNOSIS AND TREATMENT: [facility] for Osteoporosis and Metabolic Bone Disease:? www.ccf.org/arthritis/osteo National Osteoporosis Foundation:? www.nof.org International Society of Clinical Densitometry www.iscd.org Pyrotechnist: [email or web address] Transcribe Date/Time: Nov 07 2024 11:19A Dictated by : ASHLEY VEGA MD This examination was interpreted and the report reviewed and electronically signed by: ASHLEY VEGA MD on Nov 07 2024 9:08PM [facility] Skeletal system.axial Views for bone densityon 11-07-2024* * *Final Report* * * DATE OF EXAM: Nov 07 2024 11:15AM [facility] - BD DXA - AXIAL SKELETON / PROCEDURE REASON: Crohn's disease of small and large intestines with complication (HCC) * * * * Physician Interpretation * * * * EXAMINATION: DXA BONE DENSITOMETRY BD DXA TRABECLR BONE SCORE (TBS), BD DXA - AXIAL SKELETON PATIENT DEMOGRAPHICS: Age: 39 years, Gender: Female SCANNER INFORMATION: DXA Model: A21 [employer] A [id number] Date Scanned: 11/07/2024 11:15 AM CLINICAL HISTORY: [...] had a previous bone density in the [facility] or the previous bone density was performed on a different DXA machine (new, updated model or different location) within the [facility]. VERTEBRAL FRACTURE ASSESSMENT Not performed. TRABECULAR BONE ASSESSMENT TBS score: 1.214 Bone micro-architecture: Degraded DIVISION OF RADIOLOGYProvider, [facility] [place] - 11/07/2024 * * *Final Report* * * DATE OF EXAM: Nov 07 2024 11:15AM [facility] - BD DXA - AXIAL SKELETON / PROCEDURE REASON: Crohn's disease of small and large intestines with complication (HCC) * * * * Physician Interpretation * * * * EXAMINATION: DXA BONE DENSITOMETRY BD DXA TRABECLR BONE SCORE (TBS), BD DXA - AXIAL SKELETON PATIENT DEMOGRAPHICS: Age: 39 years, Gender: Female SCANNER INFORMATION: DXA Model: A21 [employer] A [id number] Date Scanned: 11/07/2024 11:15 AM CLINICAL HISTORY: [...] had a previous bone density in the [facility] or the previous bone density was performed on a different DXA machine (new, updated model or different location) within the [facility]. VERTEBRAL FRACTURE ASSESSMENT Not performed. TRABECULAR BONE [...] FOR MORE INFORMATION ABOUT DIAGNOSIS AND TREATMENT: [facility] for Osteoporosis and Metabolic Bone Disease:? www.ccf.org/arthritis/osteo National Osteoporosis Foundation:? www.nof.org International Society of Clinical Densitometry www.iscd.org Pyrotechnist: sens Transcribe Date/Time: Nov 07 2024 11:19A Dictated by : ASHLEY VEGA MD This examination was interpreted and the report reviewed and electronically signed by: ASHLEY VEGA MD on Nov 07 2024 9:08PM EST [facility] Medical CenterHBV core Ab Ser Qlon 60-65-6614ZGM core Ab Ql (S)NegativeNormal NegativeUniversity Hospitals Health System on above:Order Comment: Specimen Type: BLOOD SPECIMENOrdering Facility: [facility] Address:[address] [place], [place] [address]Result Comment: No evidence of current or past infection with Hepatitis B virus. Should recent infection be suspected, repeat testing may be considered 3-4 weeks after this draw.Performed By: #### 5195-3, 18856-3, 12930-1 ####[facility] LABCL[facility] [id number] OF [facility]LEY HOSPITALHBV surface Ab Ql (S)on 72-59-2345SEG surface Ab Qn (S)<8.00NormalCHolmes County Joel Pomerene [facility] Hospital on above:Order Comment: Specimen Type: BLOOD SPECIMENOrdering Facility: [facility] Address:[address] [place], [place] [address]Result Comment: <8 mIU/mL: No serological evidence of immunity to Hepatitis B Virus.>/= 8 to <12 mIU/mL: No serological evidence of immunity to Hepatitis B Virus.>/= 12 mIU/mL: Consistentwith serological evidence of immunity to Hepatitis B Virus.Performed By: #### 5195-3, 09006-4, 42055-9 ####[facility] [id number] STATES OF [facility] HBV surface Ab Ser Qlon 68-14-5967LNR surface Ab Ql (S)NegativeNormalCHolmes County [facility]rene [facility] on above:Order Comment: Specimen Type: BLOOD SPECIMENOrdering Facility: [facility] Address:[address] [place], [place] [address]Result Comment: No serological evidence of immunity to Hepatitis B Virus.Performed By: #### 5195-3, 74080-1, 77708-7 ####[facility] [id number] K[address] STREETHBV surface Ag Ser Qlon 81-23-6365UXS surface Ag Ql (S)NegativeNormalNegativeUniversity Hospitals Health System on above:Order Comment: Specimen Type: BLOOD SPECIMENOrdering Facility: [facility] Address:[address] [place], [place] [address]Performed By: #### 5195- 3, 62978-0, 44068-2 ####[facility] [id number] [address] OF [facility] VALLEY HOSPITALLaboratory - Hematology and Cell countson 66-74-3133Yqnnqgyumf Ql (U)Trace-intactAbnormal NegativeUniversity Hospitals Geneva Medical CenterLaboratory - Urinalysison 15-74-7249Ksmrkgh Ql (U) NegativeNegative mg/dLUniversity Hospitals Geneva Medical CenterNo Panel Informationon 11-07-2024 IMPRESSION: THE LOWEST Z-SCORE IS -2.5 IN [...] FOR MORE INFORMATION ABOUT DIAGNOSIS AND TREATMENT: [facility] for Osteoporosis and Metabolic Bone Disease:? www.ccf.org/arthritis/osteo National Osteoporosis Foundation:? www.nof.org International Society of Clinical Densitometry www.iscd.org Pyrotechnist: [email or web address] Transcribe Date/Time: Nov 07 2024 11:19A Dictated by : ASHLEY VEGA MD This examination was interpreted and the report reviewed and electronically signed by: ASHLEY VEGA MD on Nov 07 2024 9:08PM [facility] DIVISION OF RADIOLOGYRadiology Study observation (narrative)[facility] BILIRUBIN UA (POCT)NegativeNegativeUniversity Hospitals Geneva Medical CenterCLARITY UA (POCT)Slightly CloudyCleMiami Valley HospitalCOLOR UA (POCT)Light yellowUniversity Hospitals Geneva Medical CenterGLUCOSE UA (POCT)NegativeNegative mg/dLUniversity Hospitals Geneva Medical CenterInterpretation and review of laboratory resultsAbnormalCleveland ClinicKETONE UA (POCT)NegativeNegative mg/dL [facility] CenterLEUKOCYTES UA (POCT)NegativeNegativeUniversity Hospitals Geneva Medical CenterNITRITE UA (POCT)NegativeNegativeUniversity Hospitals Geneva Medical CenterPH UA (POCT)74.5 - 8.0[facility] SPECIFIC GRAVITY UA (POCT)1.021.005 - 1.030[facility] Medical CenterUROBILINOGEN UA (POCT)0.2Normal E.U./dLUniversity Hospitals Geneva Medical CenterLocation:[facility], [address] [place] [address], [address] [place] [address] POINT OF CAREUniversity Hospitals Geneva Medical CenterNo Panel InformationOrdered By: [facility] on [id number] ClinicTPMT PHENOTYPE/ENZYME ACTIVITYon 59-68-5949DKSM JMDXJOZA69.2 U/mLLow24.0-44.0 [facility] County HospitalComment on above:Order Comment: Specimen Type: BLOOD SPECIMENOrdering Facility: [facility] Address:[address] [place], [place] [address]Result Comment: INTERPRETIVE INFORMATION: Thiopurine Methyltransferase, RBCNormal TPMT activity:24.0-44.0 U/mL................Individuals are predicted to be atlow risk of bone marrow toxicity (myelosuppression) as aconsequence of standard thiopurine therapy; no dose adjustment isrecommended.Intermediate TPMT activity:17.0-23.9 U/mL................Individuals are predicted to be atintermediate risk of bone marrow toxicity (myelosuppression) as aconsequence of standard thiopurine therapy; a dosereduction andtherapeutic drug management is recommended.Low TPMT activity:less than 17.0 U/mL...........Individuals are predicted to be athigh risk of bone marrow toxicity (myelosuppression) as aconsequence of standard thiopurine dosing. It is recommended toavoid the use of thiopurine drugs.High TPMT activity:greater than 44.0 U/mL........Individuals are not predicted to beat risk for bone marrowtoxicity (myelosuppression) as aconsequence of standard thiopurine dosing, [...] is low, it ispredicted that proportionately more 6-mercaptopurinecan beconverted into the cytotoxic 6- thioguanine nucleotides thataccumulate in the bone marrow causing excessive toxicity. Theactivity of TPMT is measured by the nanomoles of6- methylmercaptopurine (inactive metabolite) produced per 1 mL ofpacked [...] several drugs such as: naproxen (Aleve),ibuprofen (Advil, Motrin),ketoprofen (Orudis), furosemide(Lasix), sulfasalazine (Azulfidine), mesalamine (Asacol),olsalazine (Dipentum), mefenamic acid (Ponstel), thiazidediuretics, and benzoic acid inhibitors. TPMT inhibitors maycontribute to falsely low results; patients should abstain fromthese drugs for at least 48 hours prior to TPMT testing. Falselylow results may also occur as a result of inappropriate specimenhandling and hemolysis.This test was developed and its performance characteristicsdetermined by [employer]. It has not been cleared orapproved by the [place] Food and Drug Administration. This test waspe rformed in a CLIA certified laboratory and is intended forclinical purposes.Performed By: [facility] [place], [place] [address]Llffqhxbyl Director: Hugo Ramsey MD, PhDCLIA Number: [id number] Performed By: #### PPRENZ ####[facility]ENTERIA [id number] [place], [place] [address]FNXBDRD B12on 97-93-7825Fbicspweu (Vitamin B12) [Mass/Vol]423 pg/mL232 - 1245 pg/mLCleveland St. Gabriel HospitalVit B12 SerPl-mCncon 46-05-9516Sjiopccub (Vitamin B12) [Mass/Vol]423 pg/mFEppxxg637-8289Rpcyzfkas Adventhealth HendersonvilleComment on above:Order Comment: Specimen Type: BLOOD SPECIMENOrdering Facility: [facility] Address:[address] [place], [place] [address]Performed By: #### 2132-9 ####[facility] [id number] [place] [address] [place] AMERICABacteria Bld Culton 25-09-6059Borjuraf identified Cx Nom (Bld)CULTURE, BLOOD: No growth 5 days GRAM STAIN: This blood culture had less than the recommended 8 ml per bottle, which could decrease the sensitivity of the test.NormalWood County HospitalComment on above:Performed By: #### 600-7 ####[facility] [id number] [facility]INICD [address] [place] [address] [place] Bacteria identified Cx Nom (Bld)CULTURE, BLOOD: No growth 5 daysNormalCMercy Health Urbana HospitalComup health system on above:Performed By: #### 600-7 ####[facility] [id number] [facility] CLINICD [address] [place] [address] [place] [facility] W Auto Differential panel (Bld)on 88-90-1028Czfowxbdz (Bld) [#/Vol]0.06 10*3/uLNormal <0.11ClevelDorothea Dix Hospitalment on above:Order Comment: Specimen Type: BLOOD SPECIMENOrdering Facility: [facility] Address:[address] [place], [place] [address]Performed By: #### 38391-7 ####[facility] [id number] [address], [place] [address] [place] AMERICABasophils/100 WBC (Bld)0.6 %NormalWood County Hospital Comment on above:Order Comment: Specimen Type: BLOOD SPECIMENOrdering Facility: [facility] Address:[address] [place] [address] Performed By: #### 61214-2 ####[facility] [id number] [address] [place] [address] [place] Differential cell count method Nom (Bld)AutoNormalClevelCentral Carolina Hospital Comment on above:Order Comment: Specimen Type: BLOOD SPECIMENOrdering Facility: [facility] Address:[address] [place] [address] Performed By: #### 90169-1 ####[facility] [id number] [facility] [place] [address] [place] Eosinophils (Bld) [#/Vol]0.39 10*3/uLNormal<0.46[facility] Comment on above:Order Comment: Specimen Type: BLOOD SPECIMENOrdering Facility: [facility] Address:[address] [place] [address] Performed By: #### 51768-3 ####[facility] [id number] [place] [address] [place] Eosinophils/100 WBC (Bld)3.6 %NormalUniversity Hospitals Health System on above: Order Comment: Specimen Type: BLOOD SPECIMENOrdering Facility: [facility] Address:[address] [place], [place] [address]Performed By: #### 60105- 8 ####[facility] [id number] [place] [address] [place] AMERICAErythrocyte distribution width (RBC) [Ratio]13.8 %Xkdtwu88.5-15.0[facility] on above: Order Comment: Specimen Type: BLOOD SPECIMENOrdering Facility: [facility] Address:[address] [place], [place] [address]Performed By: #### 90762- 8 ####[facility] [id number] [place] [address] [place] AMERICAHematocrit (Bld) [Volume fraction]36.7 %Fyvohr24.0-46.0[facility] on above:Order Comment: Specimen Type: BLOOD SPECIMENOrdering Facility: [facility] Address:[address] [place], [place] [address]Performed By: #### 10718- 8 ####[facility] [id number] [place] [address] [place] AMERICAHemoglobin (Bld) [Mass/Vol]12.1 g/hNFxjkrv88.5-15.5CHolmes County [facility] on above:Order Comment: Specimen Type: BLOOD SPECIMENOrdering Facility: [facility] Address:[address] [place], [place] [address]Performed By: #### 45429-9 ####[facility] [id number] [place] [address] [place] AMERICAImmature granulocytes (Bld) [#/Vol]10*3/uLNormal<0.10[facility] on above:Order Comment: Specimen Type: BLOOD SPECIMENOrdering Facility: [facility] Address:[address] [place], [place] [address]Performed By: #### 90863- 8 ####[facility] [id number] [place] [address] [place] AMERICAImmature granulocytes/100 WBC (Bld)0.2 %NormalUniversity Hospitals Health System on above:Order Comment: Specimen Type: BLOOD SPECIMENOrdering Facility: [facility] Address:[address] [place], [place] [address]Performed By: #### 74377-1 ####[facility] [id number] [place] [address] [place] AMERICALymphocytes (Bld) [#/Vol]2.35 10*3/uLNormal1.00-4.00[facility] on above:Order Comment: Specimen Type: BLOOD SPECIMENOrdering Facility: [facility] Address:[address] [place], [place] [address]Performed By: #### 18787-3 ####[facility] [id number] [place] [address] [place] OF AMERICALymphocytes/100 WBC (Bld)21.9 % NormalUniversity Hospitals Health System on above:Order Comment: Specimen Type: BLOOD SPECIMENOrdering Facility: [facility] Address:[address] [place], [place] [address]Performed By: #### 76205-0 ####[facility] [id number] [place] [address] [place] AMERICAMCH (RBC) [Entitic mass]29.1 veCtwaok91.0-34.0[facility] on above:Order Comment: Specimen Type: BLOOD SPECIMENOrdering Facility: [facility] Address:[address] [place], [place] [address]Performed By: #### 52593-1 ####[facility]PITALIA [id number] [place] [address] [place] MCHC (RBC) [Mass/Vol]33.0 g/cCPlkyza58.5-36.0[facility] on above:Order Comment: Specimen Type: BLOOD SPECIMENOrdering Facility: [facility] Address:[address] [place] [address] Performed By: #### 03047-6 ####[facility] [id number] [place] [address] [place] MCV (RBC) [Entitic vol]88.2 uTLxzxyd84.0-100.0[facility] on above:Order Comment: Specimen Type: BLOOD SPECIMENOrdering Facility: [facility] Address:[address] [place] [address] Performed By: #### 53791-9 ####[facility] [id number] [place] [address] [place] Monocytes (Bld) [#/Vol]0.78 10*3/uLNormal<0.87[facility] on above:Order Comment: Specimen Type: BLOOD SPECIMENOrdering Facility: [facility] Address:[address] [place] [address] Performed By: #### 72158-1 ####[facility] [id number] [place] [address] [place] Monocytes/100 WBC (Bld)7.3 %NormalKettering Health Springfieldment on above: Order Comment: Specimen Type: BLOOD SPECIMENOrdering Facility: [facility] Address:[address] [place], [place] [address]Performed By: #### 23182- 8 ####[facility] [id number] [place] [address] [place] AMERICANeutrophils (Bld) [#/Vol]7.11 10*3/uLNormal1.45-7.50[facility] on above:Order Comment: Specimen Type: BLOOD SPECIMENOrdering Facility: [facility] Address:[address] [place], [place] [address]Performed By: #### 33638-6 ####[facility] [id number] [place] [address] [place] AMERICANeutrophils/100 WBC (Bld)66.4 % NormalUniversity Hospitals Health System on above:Order Comment: Specimen Type: BLOOD SPECIMENOrdering Facility: [facility] Address:[address] [place], [place] [address]Performed By: #### 38744-3 ####[facility] [id number] [place] [address] [place] AMERICANucleated RBC (Bld) [#/Vol]10*3/uLNormal<0.01[facility] on above:Order Comment: Specimen Type: BLOOD SPECIMENOrdering Facility: [facility] Address:[address] [place], [place] [address]Performed By: #### 87272-5 ####[facility] [id number] [place] [address] [place] Nucleated RBC/100 WBC (Bld) [Ratio]0.0 /100 WBCNormalCMercy Health Urbana Hospital Comment on above:Order Comment: Specimen Type: BLOOD SPECIMENOrdering Facility: [facility] Address:[address] [place] [address] Performed By: #### 41992-1 ####[facility] [id number] [address] [place] [address] [place] Platelet mean volume (Bld) [Entitic vol]10.8 fLNormal9.0-12.7CHolmes County [facility] on above:Order Comment: Specimen Type: BLOOD SPECIMENOrdering Facility: [facility] Address:[address] [place], [place] [address]Performed By: #### 72225-4 ####[facility] [id number] [address] [place] [address] [place] Platelets (Bld) [#/Vol]247 10*3/eKQdvihw888-350FdbivbnccUniversity Hospitals Health System on above:Order Comment: Specimen Type: BLOOD SPECIMENOrdering Facility: [facility] Address:[address] [place] [address] Performed By: #### 48684-6 ####[facility] [id number] [address], [place] [address] [place] RBC (Bld) [#/Vol]4.16 10*6/uLNormal3.90-5.20[facility] on above:Order Comment: Specimen Type: BLOOD SPECIMENOrdering Facility: [facility] Address:[address] [place], [place] [address]Performed By: #### 34306-3 ####[facility] [id number] [place] [address] [place] OF AMERICAWBC (Bld) [#/Vol]10.71 10*3/uLNormal3.70-11.00[facility] on above:Order Comment: Specimen Type: BLOOD SPECIMENOrdering Facility: [facility] Address:[address] [place], [place] [address]Performed By: #### 45780- 8 ####[facility] [id number] [address] [place], [place] [address] [place] AMERICAComprehensive metabolic 2000 panelon 08-49-9275Pngorzj [Mass/Vol]4.1 g/dLNormal3.9-4.9CHolmes [facility] on above:Order Comment: Specimen Type: BLOOD SPECIMENOrdering Facility: [facility] Address:[address] [place], [place] [address]Performed By: #### 25451-6, 3040-3, 84961-2 ####[facility] [id number] [place] [address] [place] OF AMERICAALP [Catalytic activity/Vol]96 U/TMgxhrq12-416MzlubsdljUniversity Hospitals Health System on above:Order Comment: Specimen Type: BLOOD SPECIMENOrdering Facility: [facility] Address:[address] [place], [place] [address]Performed By: #### 90727-1, 3040-3, 39221-1 ####[facility] [id number] VILLE [address] [place] AMERICAALT [Catalytic activity/Vol]29 U/LNormal7-38[facility] on above:Order Comment: Specimen Type: BLOOD SPECIMENOrdering Facility: [facility] Address:[address] [place], [place] [address]Performed By: #### 23485-0, 3040-3, 61914-9 ####[facility] [id number] VILLE [address] [place] AMERICAAnion gap [Moles/Vol]12 mmol/LNormal8-15[facility] on above:Order Comment: Specimen Type: BLOOD SPECIMENOrdering Facility: [facility] Address:[address] [place], [place] [address]Performed By: #### 79007-5, 3040-3, 67565-6 ####[facility] [id number] [address] [place] AMERICAAST [Catalytic activity/Vol]22 U/VRljril55-82FagjwtrpxUniversity Hospitals Health System on above:Order Comment: Specimen Type: BLOOD SPECIMENOrdering Facility: [facility] Address:[address] [place], [place] [address]Performed By: #### 92290-2, 3040-3, ####[facility] [id number] [address] [address] [place] AMERICABilirubin [Mass/Vol]0.2 mg/dLNormal0.2-1.3CHolmes [facility] on above:Order Comment: Specimen Type: BLOOD SPECIMENOrdering Facility: [facility] Address:[address] [place], [place] [address]Performed By: #### 91175-1, 3040-3, ####[facility] [id number] [address] [place] AMERICACalcium [Mass/Vol]9.1 mg/dLNormal8.5-10.2CHolmes [facility] on above:Order Comment: Specimen Type: BLOOD SPECIMENOrdering Facility: [facility] Address:[address] [place], [place] [address]Performed By: #### 20828-7, 3040-3, ####[facility] [id number] [place] [address] [place] OF AMERICAChloride [Moles/Vol]102 mmol/NDhbdgf08-883OeiguktuqUniversity Hospitals Health System on above:Order Comment: Specimen Type: BLOOD SPECIMENOrdering Facility: [facility] Address:[address] [place], [place] [address]Performed By: #### 72844-1, 3040-3, ####[facility] [id number] [address] [address] [place] AMERICACO2 [Moles/Vol]23 mmol/MXhzwpe81-98NmnzdldblWood County Hospital Comment on above:Order Comment: Specimen Type: BLOOD SPECIMENOrdering Facility: [facility] Address:[address] [place] [address] Performed By: #### 45637-1, 3039-3, ####[facility] [id number] [place] [address] [place] AMERICACreatinine [Mass/Vol]0.51 mg/dLLow0.58-0.96[facility] Comment on above:Order Comment: Specimen Type: BLOOD SPECIMENOrdering Facility: [facility] Address:[address] [place] [address] Performed By: #### 63271-1, 3, ####[facility]IA [id number] [address] [place] AMERICACreatinine and Glomerular filtration rate.predicted panel (S/P/Bld)123 mL/min/1.73m???Normal>=60[facility] on above:Order Comment: Specimen Type: BLOOD SPECIMENOrdering Facility: [facility] Address:[address] [place], [place] [address]Result Comment: Estimated Glomerular Filtration Rate (eGFR) is calculated using the 2020 CKD-EPI cre atinine equation. This equation utilizes serum creatinine, sex, and age as parameters. The creatinine assay has traceable calibration to isotope dilution- mass spectrometry. Refer to KDIGO guidelines for clinical interpretation. In patients with unstable renal function, e.g. those with acute kidney injury, the eGFR may not accurately reflect actual GFR.Performed By: #### 86910-6, 3, ####[facility] [id number] [address] [place] AMERICAGlucose [Mass/Vol]72 mg/dLLow 74-99[facility] County HospitalComup health system on above:Order Comment: Specimen Type: BLOOD SPECIMENOrdering Facility: [facility] Address:[address] [place], [place] [address]Result Comment: The [place] Diabetes Association (ADA) provides guidance for cutoff [...] unequivocal hyperglycemia, results should be confirmed by repeattesting. In a patient with classic symptoms of hyperglycemia or hyperglycemic crisis, random plasmaglucose results greater than or equal to 200 mg/dL meet the criteria for diagnosis of diabetes.Reference: Standards of Medical Care in Diabetes 2016, [place] [employer]. Diabetes Care. 2016.39(Suppl 1).Performed By: #### 83717- 8, 3039-3, ####[facility] [id number] [address] [place] AMERICAPotassium [Moles/Vol] 4.0 mmol/LNormal3.7-5.1CHolmes [facility] on above:Order Comment: Specimen Type: BLOOD SPECIMENOrdering Facility: [facility] Address:[address] [place], [place] [address]Performed By: #### 42769-7, 3039-09, ####[facility] [id number] [address] [place] AMERICAProtein [Mass/Vol]7.0 g/dLNormal 6.3-8.0[facility] on above:Order Comment: Specimen Type: BLOOD SPECIMENOrdering Facility: [facility] Address:[address] [place], [place] [address]Performed By: #### 29887-9, 3, ####[facility] [id number][place] [address] [place] AMERICASodium [Moles/Vol]137 mmol/L Gdpsag299-423UzlumsokfUniversity Hospitals Health System on above:Order Comment: Specimen Type: BLOOD SPECIMENOrdering Facility: [facility] Address:[address] [place], [place] [address]Performed By: #### 51590-0, 3040-3, 56670-6 ####[facility] [id number] VILLE [address] [place] AMERICAUrea nitrogen [Mass/Vol]23 mg/dL High7-21[facility] on above:Order Comment: Specimen Type: BLOOD SPECIMENOrdering Facility: [facility] Address:[address] [place], [place] [address]Performed By: #### 43733-7, 3040-3, 22667-5 ####[facility] [id number] VILLE [address] [place] AMERICAED PROV NOTEon 48-06-7811KP PROV NOTENormalCMercy Health Urbana HospitalLipase SerPl-cCncon 21-23-0933Uogrzg [Catalytic activity/Vol]25 U/CBxysbm68-52AccwvlqaxUniversity Hospitals Health System on above:Order Comment: Specimen Type: BLOOD SPECIMENOrdering Facility: [facility] Address:[address] [place], [place] [address]Performed By: #### 74628-3, 3040-3, ####[facility] [id number] [place] [address] [place] AMERICAMagnesium SerPl-mCncon 20-05-0715Gevkwamgc [Mass/Vol]2.1 mg/dLNormal1.7-2.3CHolmes County [facility] on above:Order Comment: Specimen Type: BLOOD SPECIMENOrdering Facility: [facility] Address:[address] [place], [place] [address]Performed By: #### 58723-1, 3040-3, ####[facility] [id number] [place] [address] [place] AMERICASEPSIS LACTATE W/ REFLEX (INITIAL)on 10-28-2024 Lactate [Moles/Vol]1.3 mmol/LNormal<=2.0[facility] on above:Order Comment: Specimen Type: BLOOD SPECIMENOrdering Facility: [facility] Address:[address] [place], [place] [address]Performed By: #### SLACTR ####[facility] [id number] [place] [address] [place] AMERICAUrinalysis complete panel (U)on 09-66-7502Szkjxihd LM.HPF (Urine sed) [#/Area]NegativeNormalNegative [facility] on above:Order Comment: Specimen Type: URINE SPECIMENOrdering Facility: [facility] Address:[address] [place], [place] [address]Performed By: #### 69903-3 ####[facility] [id number] [address] OF AMERICABilirubin Ql (U)NegativeNormalNegativeUniversity Hospitals Health System on above:Order Comment: Specimen Type: URINE SPECIMENOrdering Facility: [facility] Address:[address] [place] [address] Performed By: #### 03450-9 ####[facility] [id number] [address], [place] [address] [place] Clarity (Unsp spec)ClearNormalClearUniversity Hospitals Health System on above: Order Comment: Specimen Type: URINE SPECIMENOrdering Facility: [facility] Address:[address] [place], [place] [address]Performed By: #### 69601- 8 ####[facility] [id number] [address]ETColor (U)YellowNormalYellow [facility] on above:Order Comment: Specimen Type: URINE SPECIMENOrdering Facility: [facility] Address:[address] [place], [place] [address]Performed By: #### 20416-4 ####[facility] [id number] [place] [address] [place] AMERICAEpithelial cells LM.HPF (Urine sed) [#/Area]FewNormalCHolmes County Joel [facility]omerene [facility] Hospital on above:Order Comment: Specimen Type: URINE SPECIMENOrdering Facility: [facility] Address:[address] [place], [place] [address]Performed By: #### 92531-0 ####[facility] [id number] [place] [address] [place] Glucose Test strip (U) [Mass/Vol]NegativeNormalNegativeUniversity Hospitals Health System on above:Order Comment: Specimen Type: URINE SPECIMENOrdering Facility: [facility] Address:[address] [place], [place] [address]Performed By: #### 41019-7 ####[facility] [id number] [place] [address] [place] Hemoglobin Ql (U)NegativeNormalNegativeUniversity Hospitals Health System on above:Order Comment: Specimen Type: URINE SPECIMENOrdering Facility: [facility] Address:[address] [place], [place] [address]Performed By: #### 81843-5 ####[facility] [id number] [place] [address] [place] AMERICAHyaline casts (Urine sed) [#/Area]0 /[LPF]Normal0 /LPFCHolmes County [facility]omerene [facility] Hospital on above: Order Comment: Specimen Type: URINE SPECIMENOrdering Facility: [facility] Address:[address] [place], [place] [address]Performed By: #### 05552- 8 ####[facility] [id number] [place] [address] [place] AMERICAKetones Ql (U)NegativeNormal NegativeUniversity Hospitals Health System on above:Order Comment: Specimen Type: URINE SPECIMENOrdering Facility: [facility] Address:[address] [place], [place] [address]Performed By: #### 91375-4 ####[facility] [id number] [place] [address] [place] [facility]'S HOSPITALLeukocyte esterase Test strip Ql (U)NegativeNormal NegativeUniversity Hospitals Health System on above:Order Comment: Specimen Type: URINE SPECIMENOrdering Facility: [facility] Address:[address] [place], [place] [address]Performed By: #### 17708-0 ####[facility] [id number] [address]ETitrite Ql (U)NegativeNormalNegativeUniversity Hospitals Health System on above:Order Comment: Specimen Type: URINE SPECIMENOrdering Facility: [facility] Address:[address] [place], [place] [address]Performed By: #### 60096-3 ####[facility] [id number] [place] [address] [place] pH (U)6.5 [pH]Normal<8.5CHolmes County [facility] on above:Order Comment: Specimen Type: URINE SPECIMENOrdering Facility: [facility] Address:[address] [place], [place] [address]Performed By: #### 10750- 8 ####[facility] [id number] [place] [id number] [place] [facility] HOSPITALProtein (U) [Mass/Vol]Negative NormalNegativeUniversity Hospitals Health System on above:Order Comment: Specimen Type: URINE SPECIMENOrdering Facility: [facility] Address:[address] [place], [place] [address]Performed By: #### 37180-5 ####[facility] [id number] [place] [id number] [place] [facility]ILDREN'S HOSPITALRBC LM.HPF (Urine sed) [#/Area]0-2 /HPFNormal0-2 /HPF [facility] on above:Order Comment: Specimen Type: URINE SPECIMENOrdering Facility: [facility] Address:[address] [place], [place] [address]Performed By: #### 72740-3 ####[facility] [id number] [place] [address] [place] OF AMERICASpecific gravity (U) [Rel density]1.587Sboegh9.005-1.030Wood County HospitalComment on above:Order Comment: Specimen Type: URINE SPECIMENOrdering Facility: [facility] Address:[address] [place], [place] [address]Performed By: #### 83358-9 ####[facility] [id number] [place] [address] [place] Urobilinogen Ql (U)0.2 EU/dLNormal0.2-1.0 EU/dLUniversity Hospitals Health System on above:Order Comment: Specimen Type: URINE SPECIMENOrdering Facility: [facility] Address:[address] [place] [address] Performed By: #### 82240-9 ####[facility] [id number] [place] [address] [place] WBC LM.HPF (Urine sed) [#/Area]0-5 /HPFNormal0-5 /HPFWood [facility] Comment on above:Order Comment: Specimen Type: URINE SPECIMENOrdering Facility: [facility] Address:[address] [place] [address] Performed By: #### 61898-4 ####[facility] [id number] [place] [address] [place] XR CHEST 1V FRONTAL PORTon 69-96-2780MJ CHEST 1V FRONTAL PORTNormalCMercy Health Urbana HospitalCNFlint River Hospital 13-32-0044AGGDWurdnuOvjotkpkc Clinic ClevelandCNPNon 94-44-3579DRJEGxikvuOuvjlbprr Clinic ClevelandCNPNon 17-39-0589AYZLMqdgnn [facility] HospitalCNPNon 78-26-5746WSYJGiuniyOvtmhsotn Clinic [place] CNPNon 12-63-9290APUOGrscmsBxnwjglof Clinic ClevelandCoding Summaryon 10-02-2024 Coding SummaryHTMLBase 64 PvslhjytTKv8sCs+PGhlYWQ+UK4ZKUWsZ19tiAVthR4zQ2ILPVhEKgtuTAKRXYxOAiHyjbUpGG8utRVo ZXJu [file] b2x (more content not included)...[facility].Auto Diff 1on 55-77-9848Tkis [place] %8 %Normal-12[facility] CenterComment on above:Performed By: #### 77442203, 1468063, 0094001, 7223024, 1544544302, 5180729 #### [facility] (DEFAULT) [address] [place] [address] 18245Bchm Abs#0.0 p11Jdlodd2.0-0.2Magrmemorial health system [facility] HospitalComment on above:Performed By: #### 94383426, 6730618, 7704857, 3197544, 8912020948, 2502442 #### [facility] (DEFAULT) [address] [place] [address] 12650Qxmkebldg/100 WBC (Bld)1.1 %Normal0.2-2.0[facility] Comment on above:Performed By: #### 44390966, 7680453, 1347546, 1828620, 6474125015, 6395688 #### [facility] (DEFAULT) [address] [place] [address] 28451Zuk Abs#0.1 s43Rrarny0.0-0.4Maparkview health HospitalComment on above:Performed By: #### 06002377, 3034000, 8275452, 3271908, 6836854309, 2555379 #### [facility] (DEFAULT) [address] [place] [address] 84664Wqpsiaiwmqh/100 WBC (Bld)3.8 %Normal0.9-4.0[facility] HospitalComment on above:Performed By: #### 28667730, 7786083, 3885156, 4713165, 6221820973, 2144018 #### [facility] (DEFAULT) [address] [place] [address] 80233Suhbq Abs#0.8 r19Pmu8.3-2.9[facility] HospitalComment on above:Performed By: #### 63198930, 5667831, 5644410, 7261124, 2129308123, 4163881 #### [facility] (DEFAULT) [address] [place] [address] 12948Wdqadtlhaeg/100 WBC (Bld)26 %Bzwshk31-79Kyymlxna Hospital Comment on above:Performed By: #### 66499575, 7695617, 8130740, 8589708, 9394252909, 5397946 #### [facility] (DEFAULT) [address] [place] [address] 11984Arhl Abs#0.3 s73Bdeyht4.0-0.8[facility] HospitalComment on above:Performed By: #### 48626607, 3653420, 2735373, 8253194, 2946266640, 4081789 #### [facility] (DEFAULT) [address] [place] [address] 36705Mmjg Abs#2.0 z57Tvxphw1.5-9.2[facility] HospitalComment on above:Performed By: #### 27260464, 7306587, 0436468, 0925171, 1745293909, 8566277 #### [facility] (DEFAULT) [address] [place] [address] 92565Uhblsmhbahf/100 WBC (Bld)61 %Kbkwdg73-52Tstpsbyu Hospital Comment on above:Performed By: #### 28972866, 5510699, 6063181, 9091614, 0624859422, 5082220 #### [facility] (DEFAULT) [address] [place] [address] 50888ARQ w/ Auto Diffon 30-70-4740Kszlcerjnal distribution width (RBC) [Ratio]17.2 %High11.5-15.0[facility] Medical CenterComment on above: Performed By: #### 76320934, 3402058, 2250541, 7535299, 4112208635, 1379110 #### [facility] (DEFAULT) [address] [place] [address] 56970Cngmyndzqb (Bld) [Volume fraction]29.7 %Low33.7-40.4 [facility] CenterComment on above:Performed By: #### 21410600, 0575672, 4154246, 9880281, 6133529263, 1370675 #### [facility] (DEFAULT) [address] [place], [place] [address]Hemoglobin (Bld) [Mass/Vol]9.9 g/dLLow11.3-15.9[facility] Medical CenterComment on above:Performed By: #### 62014581, 9350319, 3225420, 7581557, 9497231685, 3696300 #### [facility] (DEFAULT) [address] [place] [address] 77388Qoz Diff?AutoInvalid Interpretation [facility] Comment on above:Performed By: #### 47716244, 0119219, 4903425, 0607818, 6350327431, 3939044 #### [facility] (DEFAULT) [address] [place] [address] 82182DBT (RBC) [Entitic mass]30 vjXnhrhg40-56Dkqykugt Hospital Comment on above:Performed By: #### 50215959, 4218283, 1077087, 1183616, 0495372617, 1806482 #### [facility] (DEFAULT) [address] [place] [address] 28680BZZJ (RBC) [Mass/Vol]33 g/lMAnwdzk43-89Rvrqraor Hospital Comment on above:Performed By: #### 83075992, 6307800, 1858771, 9459720, 0613183620, 6463212 #### [facility] (DEFAULT) [address] [place] [address] 21062UGS (RBC) [Entitic vol]90 gZVyhvuz50-098Edpyplgg Hospital Comment on above:Performed By: #### 52676195, 0710004, 3917046, 1506912, 1041294216, 8498798 #### [facility] (DEFAULT) [address] [place] [address] 75914Dzwzvfhl298 k94Kebiny528-582Fgpzqpsi HospitalComment on above:Performed By: #### 24547252, 4584091, 5395592, 5267897, 2745195141, 5359167 #### [facility] (DEFAULT) [address] [place] [address] 11267Qdtuhaud mean volume (Bld) [Entitic vol]9.7 fLNoal 6.3-10.2[facility] HospitalComment on above:Performed By: #### 80579741, 0178069, 7129816, 1574974, 5611479162, 9691296 #### [facility] (DEFAULT) [address] [place] [address] 19370GZD8.29 e13Cum1.70-5.30[facility] HospitalComment on above: Performed By: #### 96562621, 9109851, 2213991, 4920719, 1199696226, 7215046 #### [facility] (DEFAULT) [address] [place] [address] 30376ABU2.2 c02Dtx1.5-10.5[facility] HospitalComment on above: Performed By: #### 16193039, 2095481, 4186097, 8911215, 5610041745, 2765941 #### [facility] (DEFAULT) [address] [place] [address] 69248XNG Standardon 25-17-4908rHJX Non AA>60Invalid Interpretation [facility] HospitalComment on above:Performed By: #### 45795341, 4305319, 2744521, 0490759, 2635046877, 1975001 #### [facility] (DEFAULT) [address] [place] [address] 24040tMVO AA>60Invalid Interpretation [facility] Comment on above:Performed By: #### 84210720, 5811573, 6775191, 2050743, 4936238436, 2228321 #### [facility] (DEFAULT) [address] [place] [address] 07048Xvkyfyi [Mass/Vol]3.3 g/dLLow3.5-5.0[facility] Comment on above:Performed By: #### 96513533, 6617753, 1691259, 0824712, 7377940220, 7600652 #### [facility] (DEFAULT) [address] [place] [address] 08501Lbn Phos68 IU/IFeoqaa24-43Ch[facility] HospitalComment on above:Performed By: #### 15339568, 7064842, 5672074, 9311967, 9537066433, 5316918 #### [facility] (DEFAULT) [address] [place] [address] 55036PRD [Catalytic activity/Vol]47.0 U/ZJtmvgi70.0-54.0 [facility] CenterComment on above:Performed By: #### 81910796, 0126138, 5957263, 0669961, 5223692471, 7028555 #### [facility] (DEFAULT) [address] [place] [address] 40123RCU [Catalytic activity/Vol]33 U/YKmahtd46-34Hvauxpbr HospitalComment on above:Performed By: #### 34824510, 4834653, 0512088, 5587241, 1872982854, 2271589 #### [facility] (DEFAULT) [address] [place] [address] 79942Zgin Total0.2 mg/dLLow0.3-1.2MUniversity Hospitals Cleveland Medical CenterComment on above:Performed By: #### 36835222, 5300955, 6706110, 5980391, 4636111204, 4992224 #### [facility] (DEFAULT) [address] [place] [address] 94658Fvbtszq [Mass/Vol]8.7 mg/dLLow8.9-10.3MUniversity Hospitals [facility] Comment on above:Performed By: #### 97062560, 5728196, 1531514, 5175666, 6673065255, 3365317 #### [facility] (DEFAULT) [address] [place] [address] 22218Fjolzfkm [Moles/Vol]103 mmol/ZSvxtoe542-995Ugsnygub HospitalComment on above:Performed By: #### 46830348, 0217004, 2252537, 0002948, 9963828194, 6745486 #### [facility] (DEFAULT) [address] [place] [address] 60922SH3 [Moles/Vol]23 mmol/XDsarja20-71Obedgxyj Hospital Comment on above:Performed By: #### 27334072, 8439614, 9163519, 0445796, 2185730713, 7328252 #### [facility] (DEFAULT) [address] [place] [address] 07668Ejwrckhcfu [Mass/Vol]0.46 mg/dLLow0.60-1.30[facility] HospitalComment on above:Performed By: #### 94654066, 3341651, 6882294, 8586160, 0327401044, 1867359 #### [facility] (DEFAULT) [address] [place] [address] 01199Apezliy [Mass/Vol]90.0 mg/bXMiwluv64.0-118.0[facility] HospitalComment on above:Performed By: #### 60110209, 2623403, 9975255, 6172815, 6196401564, 2749755 #### [facility] (DEFAULT) [address] [place] [address] 24878Wgfkbcrif [Moles/Vol]4.6 mmol/LNormal3.6-5.1[facility] HospitalComment on above:Performed By: #### 73103646, 5921096, 4463387, 3865501, 4737832086, 7500271 #### [facility] (DEFAULT) [address] [place] [address] 54532Lycpdwb [Mass/Vol]6.3 g/dLLow6.5-8.1[facility] Hospital Comment on above:Performed By: #### 65018284, 0935305, 2135529, 0641085, 6439803793, 4198303 #### [facility] (DEFAULT) [address] [place] [address] 09789Jyhiou [Moles/Vol]135.0 mmol/AUsh649.0-144.0[facility] HospitalComment on above:Performed By: #### 41469268, 9520240, 8047649, 8322494, 8122643803, 9852827 #### [facility] (DEFAULT) [address] [place] [address] 64748Cwmt nitrogen [Mass/Vol]24 mg/dLNormal8-26[facility] HospitalComment on above:Performed By: #### 95284776, 2014073, 2891089, 6523926, 8963975900, 4623879 #### [facility] (DEFAULT) [address] [place] [address] 97699Hdvfeex/Globulin [Mass ratio]1.1 {ratio}Low1.4-2.6Magrmemorial health system [facility] HospitalComment on above:Performed By: #### 12285316, 0472197, 0439733, 7760411, 4144299583, 0421787 #### [facility] (DEFAULT) [address] [place] [address] 44005Xsuvk gap [Moles/Vol]13.6 mmol/LNormal5.0-19.0[facility] HospitalComment on above:Performed By: #### 60582777, 2277470, 2456380, 3477036, 7112440218, 9277414 #### [facility] (DEFAULT) [address] [place] [address] 13591Fynfcwhw (S) [Mass/Vol]3.0 g/dLNormal1.5-4.3[facility] HospitalComment on above:Performed By: #### 48771124, 0078503, 8661684, 4499408, 7894593794, 1832968 #### [facility] (DEFAULT) [address] [place] [address] 14833Whkhrypevx591 mOsm/LInvalid Interpretation CodeGrant Hospital HospitalComment on above:Performed By: #### 00358949, 1053079, 3476934, 1077007, 1617003307, 4174089 #### [facility] (DEFAULT) [address] [place] [address] 36867Zlyt nitrogen/Creatinine [Mass ratio]52.1 mg/mgHigh 4.6-16.2MUniversity Hospitals Cleveland Medical CenterComment on above:Performed By: #### 67733293, 4968443, 7720975, 0726826, 9985450549, 2656638 #### [facility] (DEFAULT) [address] [place] [address] 92206Bfgqtgsdlbd 47-33-1629Qwlcgeusa [Mass/Vol]1.85 mg/dLNormal 1.80-2.50[facility] Medical CenterComment on above:Performed By: #### 92659553, 0251530, 1745776, 8722647, 0534216603, 7712664 #### [facility] (DEFAULT) [address] [place] [address] 94037Xbjsyr 34-76-5984Aaxfadjjb [Mass/Vol]4.3 mg/dLNormal 2.5-4.6[facility] HospitalComment on above:Performed By: #### 29382601, 5532156, 6138246, 8978186, 3635944018, 1980774 #### [facility] (DEFAULT) [address] [place] [address] 41608Ncbpeorp Orderson 52-80-9444Pxndoowq Orders [id number]#1.00OTGTIFFNormalSalem Regional Medical CenterTrig on 58-67-4021Nlqtrcluthyz [Mass/Vol]58.0 mg/dLNormal0.0-150.0[facility] Comment on above:Performed By: #### 61393388, 9965905, 6845767, 6877860, 3539261617, 1328172 #### [facility] (DEFAULT) [address] [place] [address] 79188ZJEInc 69-16-2692VRERSkyvdhQvpqvoiod Clinic ClevelandCNPN on 16-87-0791YHJMAdxuhdClefprhey Clinic ClevelandUS ARM VEIN DVT MARKO VAS LABon 51-82-4206SW ARM VEIN DVT MARKO VAS LABNormalCCorey Hospital Clesouthview medical centerUrinalysis complete panel (U)on 79-49-6030Otczfezn LM.HPF (Urine sed) [#/Area]Negative NormalNegativeUniversity Hospitals Health System on above:Order Comment: Specimen Type: URINE SPECIMENOrdering Facility: [facility] Address:[address] [place], [place] [address]Performed By: #### 36534-0 ####[facility]CL[facility] [id number] [address] [place] [address] [place] AMERICABilirubin Ql (U)NegativeNormalNegativeUniversity Hospitals Health System on above:Order Comment: Specimen Type: URINE SPECIMENOrdering Facility: [facility] Address:[address] [place], [place] [address]Performed By: #### 41341-8 ####[facility] LABCL[facility] [id number] [address] [place] [address] [place] Clarity (Unsp spec)ClearNormalClearUniversity Hospitals Health System on above: Order Comment: Specimen Type: URINE SPECIMENOrdering Facility: [facility] Address:[address] [place], [place] [address]Performed By: #### 23966- 8 ####[facility]CL[facility] [id number] [address] [place] [address] [place] AMERICAColor (U)YellowNormalYellow [facility] on above:Order Comment: Specimen Type: URINE SPECIMENOrdering Facility: [facility] Address:[address] [place], [place] [address]Performed By: #### 85399-3 ####[facility]CL[facility] [id number] [address] [place] [address] [place] AMERICAEpithelial cells LM.HPF (Urine sed) [#/Area]None SeenNormBluffton Hospital on above:Order Comment: Specimen Type: URINE SPECIMENOrdering Facility: [facility] Address:[address] [place], [place] [address]Performed By: #### 52960-0 ####[facility]CL[facility] [id number] [address], [place] [address] [place] AMERICAGlucose Test strip (U) [Mass/Vol]NegativeNormalNegativeUniversity Hospitals Health System on above:Order Comment: Specimen Type: URINE SPECIMENOrdering Facility: [facility] Address:[address] [place], [place] [address]Performed By: #### 63590-4 ####[facility]CL[facility] [id number] [address], [place] [address] [place] Hemoglobin Ql (U)2+AbnormalNegativeUniversity Hospitals Health System on above: Order Comment: Specimen Type: URINE SPECIMENOrdering Facility: [facility] Address:[address] [place], [place] [address]Performed By: #### 26770- 8 ####[facility] LABIA [id number] [place] [address] [place] AMERICAHyaline casts (Urine sed) [#/Area]0 /[LPF]Normal0 /LPFCHolmes County Joel Pomerene [facility] Hospital on above:Order Comment: Specimen Type: URINE SPECIMENOrdering Facility: [facility] Address:[address] [place], [place] [address]Performed By: #### 72593- 8 ####[facility]CL[facility] [id number] [place] [address] [place] AMERICAKetones Ql (U)NegativeNormal NegativeUniversity Hospitals Health System on above:Order Comment: Specimen Type: URINE SPECIMENOrdering Facility: [facility] Address:[address] [place], [place] [address]Performed By: #### 59585-9 ####[facility] LABCL[facility] [id number] [address], [facility] [place] AMERICALeukocyte esterase Test strip Ql (U)NegativeNormal NegativeUniversity Hospitals Health System on above:Order Comment: Specimen Type: URINE SPECIMENOrdering Facility: [facility] Address:[address] [place], [place] [address]Performed By: #### 57239-1 ####[facility] LABCL[facility] [id number] [address] [place] [address] [place] AMERICANitrite Ql (U)NegativeNormalNegativeUniversity Hospitals Health System on above:Order Comment: Specimen Type: URINE SPECIMENOrdering Facility: [facility] Address:[address] [place], [place] [address]Performed By: #### 00956-0 ####[facility] LABCLIA [id number] [address] [address] [place] pH (U)5.5 [pH]Normal<8.5CHolmes County [facility] on above:Order Comment: Specimen Type: URINE SPECIMENOrdering Facility: [facility] Address:[address] [place], [place] [address]Performed By: #### 74837- 8 ####[facility] LABCLIA [id number] [address] [address] [place] [facility] HOSPITALProtein (U) [Mass/Vol]Negative NormalNegativeUniversity Hospitals Health System on above:Order Comment: Specimen Type: URINE SPECIMENOrdering Facility: [facility] Address:[address] [place], [place] [address]Performed By: #### 77283-6 ####[facility] LABCLIA [id number] [address] [address] [place] [facility] VALLEY HOSPITALRB LM.HPF (Urine sed) [#/Area]11-20 /HPFAbnormal0-2 /HPFUniversity Hospitals Health System on above:Order Comment: Specimen Type: URINE SPECIMENOrdering Facility: [facility] Address:[address] [place], [place] [address]Performed By: #### 02178-3 ####[facility] [id number] [place] [address] [place] AMERICASpecific gravity (U) [Rel density]1.947Oxuxss5.005-1.030 [facility] County HospitalComment on above:Order Comment: Specimen Type: URINE SPECIMENOrdering Facility: [facility] Address:[address] [place], [place] [address]Performed By: #### 25770-9 ####[facility] [id number] [place] [address] [place] AMERICAUrobilinogen Ql (U)0.2 EU/dLNormal0.2-1.0 EU/dLWood County Hospital Comment on above:Order Comment: Specimen Type: URINE SPECIMENOrdering Facility: [facility] Address:[address] [place] [address] Performed By: #### 33450-2 ####[facility] [id number] [place] [address] [place] WBC LM.HPF (Urine sed) [#/Area]0-5 /HPFNormal0-5 /HPFWood County Hospital Comment on above:Order Comment: Specimen Type: URINE SPECIMENOrdering Facility: [facility] Address:[address] [place] [address] Performed By: #### 72635-4 ####[facility] [id number] [place] [address] [place] CNNURSEon 55-04-2476GBWLMJUGqfpymHmeqmitbr Clinic ClevelandCNOVon 27-74-7461XESC NormalWood County HospitalCNPNon 36-71-6767ETYENrynwdCetuqrfvb Clinic ClevelandCNPNon 33-39-4007QPYXXsuewcVzbfusove Clinic ClevelandCNDSon 09-06-2024 CNDSHNO ID: [id number] Author: JOSE RICE MD Service: Hospital Medicine Author Type: Physician Type: Discharge Summary Filed: 09/06/2024 12:30 Note Text: DISCHARGE SUMMARY PATIENT NAME: Francine Rardon ADMISSION DATE: 09/02/2024 DISCHARGE DATE: 09/06/2024 ATTENDING [...] Test(s): US DVT UPPER LEFT REASON FOR HOSPITALIZATION/PRINCIPAL DIAGNOSES: clotted LUE PICC line HOSPITAL PROBLEMS: [...] is a 38 y/o F with a H sig for chron's 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 Patient recently discharged on 08/30/24 from . She was discharged home with LUE PICC with nightly TPN. Her [facility] nurse and boyfriend were having difficulty [...] was then cleared for discharge home with [facility] in stable condition and advised early [...] Center 09/18/2024 2:00 PM (more content not included)...NormalBlountstown HospitalMagnesium SerPl-mCncon 47-75-0742Mfarashmr [Mass/Vol]2.2 mg/dLNormal1.7-2.3ACentral Valley Medical Center Comment on above:Order Comment: Specimen Type: BLOOD SPECIMENOrdering Facility: [facility] Address:[address] [place] [address] Performed By: #### 49377-5, 09103-2 ####[facility] LABORATORYCLIA [id number] [facility] [place] [address] [facility] NURSING PROGon 39-10-0789PGGANPR PONCE ID: [id number] Author: SHERLY LEWIS RN Service: Nursing Author Type: Registered Nurse Type: Nursing Progress Note Filed: 09/11/2024 15:33 Note Text: Completed post procedure phone call. Francine stated that the Reece site is extremely painful and whenever she gets anything through the reece it is hard for her to sleep. Spoke with Obdulia Cesar, project controls scheduler to get patient on the schedule for a Line Check. Also gave patient our phone number and Jayden phone number You are scheduled for a Line Check, On 09/14/2024. You are to arrive at 8:30 am and Report to [facility]: [facility]: Radiology Outpatient Desk [id number] You can expect to be here for 1 hour Diet: You can eat and drink normally Medications: Ok to take your cardiac, blood pressure, anti-seizure, and chronic pain medications with a sip of water, please take prior to arrival. Bring your current medication list. Contrast Dye Prep: Do you have a contrast dye allergy? No. Labs: Lab-work needs to be drawn? No.. Special Needs Tutor/Transportation: How will you be arriving for your procedure? Private car. NormalAvon HospitalNUTRITION on [id number] ID: [id number] Author: GHASSAN MARSH RD Service: Nutrition Therapy [...] [place] DATE: September 06, 2024 TIME: 1:55 PMNormalAvon HospitalPTT, ANTICOAGULANT THERAPYon 12-81-3330sEDQ Coag (PPP) [Time]59.5 sHigh23.0-32.4Avon HospitalComment on above:Order Comment: Specimen Type: BLOOD SPECIMENOrdering Facility: [facility] Address:[address] [place] [address] [place], [place] [address]Performed By: #### PTTAC ####[facility] LABORATORYIA [id number] [place] [address] [place] OF AMERICARenal function 2000 panelon 11-29-8723Dacovuv [Mass/Vol] 3.6 g/dLLow3.9-4.9Avon HospitalComment on above:Order Comment: Specimen Type: BLOOD SPECIMENOrdering Facility: [facility] Address:[address] [place], [place] [address]Performed By: #### [id number], 54972-9 ####[facility] LABORATORYCLIA [id number] [place] [address] [place] OF AMERICAAnion gap [Moles/Vol]11 mmol/LNormal8-15Av HospitalComment on above:Order Comment: Specimen Type: BLOOD SPECIMENOrdering Facility: [facility] Address:[address] [place], [place] [address]Performed By: #### [id number], 93005-9 ####[facility] HOSPITALIA [id number] [place] [address] [place] AMERICACalcium [Mass/Vol]9.5 mg/dL Normal8.5-10.2Avo HospitalComment on above:Order Comment: Specimen Type: BLOOD SPECIMENOrdering Facility: [facility] Address:[address] [place], [place] [address]Performed By: #### 41023-8, 63850-4 ####[facility] HOSPITALIA [id number] [place] [address] [place] OF AMERICAChloride [Moles/Vol]98 mmol/WJnpiot87-226Gvuw HospitalComment on above:Order Comment: Specimen Type: BLOOD SPECIMENOrdering Facility: [facility] Address:[address] [place] [address] Performed By: #### 38290-5, 05236-2 ####[facility] LABORATORYIA [id number] [place] [address] [place] AMERICACO2 [Moles/Vol]31 mmol/OXeym86-93Jqsz HospitalComment on above:Order Comment: Specimen Type: BLOOD SPECIMENOrdering Facility: [facility] Address:[address] [place] [address] 38175Bgojvzprl By: #### 30557-7, 64476-4 ####[facility] LABORATORYCLIA [id number] [place] [address] [place] AMERICACreatinine [Mass/Vol]0.62 mg/dLNormal0.58-0.96Av HospitalComment on above:Order Comment: Specimen Type: BLOOD SPECIMENOrdering Facility: [facility] Address:[address] [place] [address] 13536Ingtycvvs By: #### 56588-3, 77201-3 ####[facility]ITALIA [id number] [place] [address] [place] Creatinine and Glomerular filtration rate.predicted panel (S/P/Bld)119 mL/min/1.73m???Normal>=60Av HospitalComment on above:Order Comment: Specimen Type: BLOOD SPECIMENOrdering Facility: [facility] Address:[address] [place] [address] 70893Flvyow Comment: Estimated Glomerular Filtration Rate (eGFR) is calculated using the 2020 CKD-EPI creatinine equation. This equation utilizes serum creatinine, sex, and age as parameters. The creatinine assay has traceable calibration to isotope dilution-mass spectrometry. Refer to KDIGO guidelines for clinical interpretation. In patients with unstable renal function, e.g. those with acute kidney injury, the eGFR may not accurately reflect actual GFR.Performed By: #### 29052-3, 04170-3 ####[facility] LABORATORYIA [id number] [place] [address] [place] AMERICAGlucose [Mass/Vol]107 mg/nWQnew49-15Daal HospitalComment on above:Order Comment: Specimen Type: BLOOD SPECIMENOrdering Facility: [facility] Address:[address] [place] [address] 52371Tyrvgo Comment: The [place] Diabetes Association (ADA) provides guidance for cutoff [...] Standards of Medical Care in Diabetes 2016, [place] Diabetes Association. Diabetes Care. 2016.39(Suppl 1).Performed By: #### 17147-6, 04883-9 ####[facility]ITALIA [id number] [place] [address] [place] AMERICAPhosphate [Mass/Vol]3.6 mg/dLNormal2.7-4.8Avon HospitalComment on above:Order Comment: Specimen Type: BLOOD SPECIMENOrdering Facility: [facility] Address:[address] [place], [place] [address]Performed By: #### 12712-3, ####[facility]ITALIA [id number] [place] [address] [place] Potassium [Moles/Vol]3.8 mmol/LNormal3.7-5.1Avon HospitalComment on above:Order Comment: Specimen Type: BLOOD SPECIMENOrdering Facility: [facility] Address:[address] [place], [place] [address]Performed By: #### 28174- 9, ####[facility]ITALIA [id number] [place] [address] [place] AMERICASodium [Moles/Vol]140 mmol/LNormal 136-144Avon HospitalComment on above:Order Comment: Specimen Type: BLOOD SPECIMENOrdering Facility: [facility] Address:[address] [place], [place] [address]Performed By: #### 88113-9, 97029-1 ####[facility] LABORATORYIA [id number] [place] [address] [place] AMERICAUrea nitrogen [Mass/Vol]19 mg/dLNormal7-21on HospitalComment on above:Order Comment: Specimen Type: BLOOD SPECIMENOrdering Facility: [facility] Address:[address] [id number] Performed By: #### 35564-1, 30336-0 ####[facility] LABORATORYCLIA [id number] [facility] [place] [address] [facility] ANES POSTPROC EVALon [id number] POSTPROC EVALHNO ID: [id number] Author: RAHUL TRENT MD Service: Anesthesiology Author Type: Physician Type: Anesthesia Postprocedure Evaluation Filed: 09/05/2024 11:06 Note Text: POST ANESTHESIA EVALUATION NOTE : 1985 Procedure Summary Date: 09/05/24 Room / Location: AV IR (1ST FLR) / AV IR Anesthesia Start: 0855 Anesthesia Stop: 1002 Procedure: INSERTION OF TUNNELED CENTRALLY INSERTED CENTRAL [...] September 05, 2024 TIME: 11:05 AM CSN: [id number] [facility] PRE-OPon [id number] PRE-OPHNO ID: [id number] Author: RAHUL TRENT MD Service: Anesthesiology Author [...] and consent discussed: yes. Patient / Responsible Alliance Party agrees to proceed: yes Patient / Surrogate agrees to blood products: blood products not planned Significant changes in the patient condition since the History and Physical, not otherwise documented in primary service progress note: no. Potential Anesthesia issues that may suggest increased risk of complications or contraindication to planned procedure: none. No vitals data found for the desired time range. Facility-Administered Medications as of 09/05/2024 Medication Dose Route [...] tablet by mouth two times a day. diphenoxylate-atropine (LOMOTIL) 2.5-0.025 mg per tablet Take [...] ON 10/01/2024] apixaban (ELIQ (more content not included)...[facility] [id number] OP NOTHNO ID: [id number] Author: CHARITO WASHINGTON MD Service: Interventional Radiology [...] note. ATTENDING RADIOLOGIST: Interventional: Dr. Charito Washington SENIOR SYSTEMS SOFTWARE ENGINEER: None PRE-PROCEDURAL DIAGNOSIS: malnutrition PROCEDURE: Other (specify) [...] Hobson DATE: September 05, 2024 TIME: 10:04 [facility] PHYSICALon [id number] PHYSICAL HNO ID: [id number] Author: CHARITO WASHINGTON MD Service: Interventional Radiology [...] Prior to Admission medications as of 09/01/24 9803 Medication Sig Last Dose Taking calcium polycarbophil (FIBERCON) 625 mg tablet Take 1 tablet by mouth two times a day. diphenoxylate-atropine (LOMOTIL) 2.5-0.025 mg per tablet Take [...] Hobson DATE: September 05, 2024 TIME: 8:49 [facility]IR FL[facility] RAHEL CVA PLACEon [id number] FLU GD RAHEL CVA PLACE* * *Final Report* * * DATE OF EXAM: Sep 05 2024 9:54AM A 7444 - IR FLU GD RAHEL CVA PLACE / PROCEDURE REASON: 2L reece * * * * Physician Interpretation * * * * PROCEDURE: TUNNELED CENTRAL VENOUS CATHETER PLACEMENT AND PICC LINE REMOVAL Procedural Personnel Attending(s): Charito Washington M.D. Route Sales Delivery Driver(s): Fellow(s): None Resident(s): None Advanced practice provider(s): [...] purse string suture. Sterile dressing(s) applied. [facility] Central Line Insertion checklist, attached to the [...] inserted central venous catheter (PICC) line removal. Lizzy (more content not included)...[facility] HospitalIR INSERT REECE CATHon [id number] INSERT REECE CATH* * *Final Report* * * DATE OF EXAM: Sep 05 2024 9:54AM [facility] 9309 - IR INSERT REECE CATH / PROCEDURE REASON: 2L reece * * * * Physician Interpretation * * * * PROCEDURE: TUNNELED CENTRAL VENOUS CATHETER PLACEMENT AND PICC LINE REMOVAL Procedural Personnel Attending(s): Charito Washington M.D. Route Sales Delivery Driver(s): Fellow(s): None Resident(s): None Advanced practice provider(s): [...] purse string suture. Sterile dressing(s) applied. [facility] Central Line Insertion checklist, attached to the [...] (PICC) line removal. Man (more content not included)...[facility] HospitalIR US VASCULAR ACCESS GUIDE on [id number] US VASCULAR ACCESS GUIDE* * *Final Report* * * DATE OF EXAM: Sep 05 2024 9:54AM [facility] 7765 - IR VASCULAR ACCESS GUIDE / PROCEDURE REASON: 2L reece * * * * Physician Interpretation * * * * PROCEDURE: TUNNELED CENTRAL VENOUS CATHETER PLACEMENT AND PICC LINE REMOVAL Procedural Personnel Attending(s): Charito Washington M.D. Route Sales Delivery Driver(s): Fellow(s): None Resident(s): None Advanced practice provider(s): [...] purse string suture. Sterile dressing(s) applied. [facility] Central Line Insertion checklist, attached to the [...] catheter (PICC) line removal. (more content not included)...NormalAvon HospitalMagnesium SerPl-mCncon 91-42-8726Nvpdrdcwe [Mass/Vol]1.7 mg/dLNormal1.7-2.3Avon HospitalComment on above:Order Comment: Specimen Type: BLOOD SPECIMENOrdering Facility: [facility] Address:[address] [place] [address] [place], [place] [address]Performed By: #### 02176-0, 27045-5, 3081-8 ####[facility] LABORATORYCLIA [id number] [facility] [place] [address] [facility] HOSPITALUTRITIONon [id number] ID: [id number] Author: GHASSNA MARSH RD Service: Nutrition Therapy Author Type: [...] a snack and sent message to [employer] Nibs Inspector. Ostomy Amount: (2150ml 09/04) Intake History: Current Nutrition Intake: 0-25% estimated energy needs Current Intake Over time: (3 days) Average Daily Calorie Intake (kcal): 306 kcal Average intake over: (via IVF) Dosing Weight: 53.7 kg (118 lb 6.2 oz) Dosing Weight Type: Current weight Estimated kilocalorie needs: 2442-6325 Calorie Calculation Method: (30-40kcals/kg) Estimated protein needs [...] Hobson DATE: September 05, 2024 TIME: 2:05 [facility] EDon [id number] [facility] ID: [id number] Author: SHERLY LEWIS RN Service: Nursing Author Type: Registered Nurse [...] patient REFERRAL (RECOMMENDATION): None Electronically Signed By: Shelry OteroUniversity Of Utah HospitalPTT, [facility] THERAPYon [id number] Coag (PPP) [Time]90.3 sHigh23.0-32.4Avo Hospital Comment on above:Order Comment: Specimen Type: BLOOD SPECIMENOrdering Facility: [facility] Address:[address] [place] [address] Performed By: #### PTTAC ####[facility] LABORATORYCLIA [id number] [place] [address] [place] AMERICAaPTT Coag (PPP) [Time]65.0 sHigh23.0-32.4Avo HospitalComment on above:Order Comment: Specimen Type: BLOOD SPECIMENOrdering Facility: [facility] Address:[address] [place], [place] [address]Performed By: #### PTTAC ####[facility] HOSPITALIA [id number] [place] [address] [place] AMERICARenal function 2000 panelon 99-49-2506Enleneq [Mass/Vol]3.6 g/dLLow3.9-4.9AvoCameron Memorial Community HospitalComment on above:Order Comment: Specimen Type: BLOOD SPECIMENOrdering Facility: [facility] Address:[address] [place], [place] [address]Performed By: #### 21723-2, 32499-0, 2571-8 ####[facility] LABORATORYCLIA [id number] [place] [address] [place] AMERICAAnion gap [Moles/Vol]11 mmol/LNormal8-15Av HospitalComment on above:Order Comment: Specimen Type: BLOOD SPECIMENOrdering Facility: [facility] Address:[address] [place], [place] [address]Performed By: #### 28938-8, 66738-7, 2571-8 ####[facility] LABORATORYIA [id number] [place] [address] [place] AMERICACalcium [Mass/Vol] 10.1 mg/dLNormal8.5-10.2Avon HospitalComment on above:Order Comment: Specimen Type: BLOOD SPECIMENOrdering Facility: [facility] Address:[address] [place], [place] [address]Performed By: #### 80157-8, 69276-4, 257-8 ####[facility] HOSPITALIA [id number] [place] [address] [place] AMERICAChloride [Moles/Vol]96 mmol/XNgu99-973Zygr HospitalComment on above:Order Comment: Specimen Type: BLOOD SPECIMENOrdering Facility: [facility] Address:[address] [place], [place] [address]Performed By: #### 20836-5, 95622-7, 2578 ####[facility] HOSPITALIA [id number] [place] [address] [place] AMERICACO2 [Moles/Vol]30 mmol/LFaftfz65-47Isgo HospitalComment on above:Order Comment: Specimen Type: BLOOD SPECIMENOrdering Facility: [facility] Address:[address] [place], [place] [address]Performed By: #### 00376-5, 10845-8, 2578 ####[facility] H[facility]PITALIA [id number] [place] [address] [place] AMERICACreatinine [Mass/Vol]0.66 mg/dLNormal0.58-0.96Av HospitalComment on above:Order Comment: Specimen Type: BLOOD SPECIMENOrdering Facility: [facility] Address:[address] [place], [place] [address]Performed By: #### 84678-6, 82977-7, 257-8 ####[facility] HOSPITALIA [id number] [place] [address] [place] AMERICACreatinine and Glomerular filtration rate.predicted panel (S/P/Bld)117 mL/min/1.73m???Normal>=60Av HospitalComment on above:Order Comment: Specimen Type: BLOOD SPECIMENOrdering Facility: [facility] Address:[address] [place], [place] [address]Lsklwv Comment: Estimated Glomerular Filtration Rate (eGFR) is calculated using the 2020 CKD-EPI creatinine equation. This equation utilizes serum creatinine, sex, and age as parameters. The creatinine assay has traceable calibration to isotope dilution-mass spectrometry. Refer to KDIGO guidelines for clinical interpretation. In patients with unstable renal function, e.g. those with acute kidney injury, the eGFR may not accurately reflect actual GFR.Performed By: #### 90704-3, 13414-7, 2571-8 ####[facility] LABORATORYCLIA [id number] [facility] [place] [address] [place] AMERICAGlucose [Mass/Vol] 93 mg/cZZdgxth46-26Hzeb HospitalComment on above:Order Comment: Specimen Type: BLOOD SPECIMENOrdering Facility: [facility] Address:[address] [place], [place] [address]Jfgxvg Comment: The [place] Diabetes Association (ADA) provides guidance for cutoff [...] Standards of Medical Care in Diabetes 2016, [place] Diabetes Association. Diabetes Care. 2016.39(Suppl 1).Performed By: #### 98125-9, 67561- 6, 2571-8 ####[facility] LABORATORYCLIA [id number] [place] [address] [place] AMERICAPhosphate [Mass/Vol]5.1 mg/dLHigh 2.7-4.8Avon HospitalComment on above:Order Comment: Specimen Type: BLOOD SPECIMENOrdering Facility: [facility] Address:[address] [place] [address]Xpccqmohq By: #### 36885-5, 61934-3, 257-8 ####[facility] LABORATORYIA [id number] [place] [address] [place] AMERICAPotassium [Moles/Vol]4.0 mmol/LNormal3.7-5.1A[facility] Comment on above:Order Comment: Specimen Type: BLOOD SPECIMENOrdering Facility: [facility] Address:[address] [place], [place] [address] Performed By: #### 49233-4, 62291-4, 257-8 ####[facility] H[facility]PITALIA [id number] [place] [address] [place] Sodium [Moles/Vol]137 mmol/AVtikbt009-056Zlao HospitalComment on above:Order Comment: Specimen Type: BLOOD SPECIMENOrdering Facility: [facility] Address:[address] [place], [place] [address]Performed By: #### 26548- 9, 26596-5, 2578 ####[facility] HOSPITALIA [id number] [place] [address] [place] AMERICAUrea nitrogen [Mass/Vol]12 mg/dLNormal7-21Av HospitalComment on above:Order Comment: Specimen Type: BLOOD SPECIMENOrdering Facility: [facility] Address:[address] [place], [place] [address]Performed By: #### 41215-4, 99537-1, 257-8 ####[facility]PITALIA [id number] [place] [address] [place] AMERICATrigl SerPl-mCncon 63-57-1198Xftjmnylmhlr [Mass/Vol]85 mg/dLNormal<150Av HospitalComment on above:Order Comment: Specimen Type: BLOOD SPECIMENOrdering Facility: [facility] Address:[address] [place], [place] [address]Result Comment: <150 mg/dL, Normal 150-199 mg/dL, Borderline high 200-499 mg/dL, High >499 mg/dL, Very high Reference: 1. National Cholesterol Education Program ATP III Guideline At-A-Glance Quick Desk Reference: National Heart, Lung, and Blood [place]. National Institutes of Health. 2001: NIH Publication No. 01-3305.Performed By: #### 83269-0, 20797- 6, 2570-8 ####[facility] LABORATORYCLIA [id number] [place] [address] [place] AMERICATriglyceride [Mass/Vol]on 09-05-2024 FASTING TIME9 hrsNormalAvirtua marlton HospitalComment on above:Order Comment: Specimen Type: BLOOD SPECIMENOrdering Facility: [facility] Address:[address] [place] [address]Flqkttqxr By: #### 78902-3, 44515-9, 2571-02 ####[facility] LABORATORYCLIA [id number] [place] [address] [place] AMERICABasic metabolic 2000 panelon 61-64-8874Kryiu gap [Moles/Vol]11 mmol/LNormal8-15Av HospitalComment on above:Order Comment: Specimen Type: BLOOD SPECIMENOrdering Facility: [facility] Address:[address] [place] [address]Davtjewwa By: #### 18578-0, 62388-8, , 1987-11 ####[facility] LABORATORYCLIA [id number] [place] [address] [place] AMERICACalcium [Mass/Vol]9.9 mg/dL Normal8.5-10.2Avon HospitalComment on above:Order Comment: Specimen Type: BLOOD SPECIMENOrdering Facility: [facility] Address:[address] [place] [address]Wantrkkan By: #### 82142-0, 07674-8, , 1987-11 ####[facility] LABORATORYCLIA [id number] [place] [address] [place] AMERICAChloride [Moles/Vol]96 mmol/KMqi99-056Iwji Hospital Comment on above:Order Comment: Specimen Type: BLOOD SPECIMENOrdering Facility: [facility] Address:[address] [place] [address] Performed By: #### 96061-0, , , 1987-11 ####[facility] LABORATORYCLIA [id number] [place] [address] [place] AMERICACO2 [Moles/Vol]30 mmol/DJwdtna82-94Fxta HospitalComment on above:Order Comment: Specimen Type: BLOOD SPECIMENOrdering Facility: [facility] Address:[address] [place] [address]Jqknkjqeq By: #### 58161-4, , , 1987-11 ####[facility]PITALIA [id number] [place] [address] [place] Creatinine [Mass/Vol]0.66 mg/dLNormal0.58-0.96[facility] Utah HospitalComment on above: Order Comment: Specimen Type: BLOOD SPECIMENOrdering Facility: [facility] Address:[address] [place] [address]Huuknghid By: #### 30131- 3, , , 1987-11 ####[facility] LABORATORYIA [id number] [place] [address] [place] AMERICACreatinine and Glomerular filtration rate.predicted panel (S/P/Bld)117 mL/min/1.73m???Normal >=60Av HospitalComment on above:Order Comment: Specimen Type: BLOOD SPECIMENOrdering Facility: [facility] Address:[address] [place] [address]Rzzywj Comment: Estimated Glomerular Filtration Rate (eGFR) is calculated using the 2020 CKD-EPI creatinine equation. This equation utilizes serum creatinine, sex, and age as parameters. The creatinine assay has traceable calibration to isotope dilution-mass spectrometry. Refer to KDIGO guidelines for clinical interpretation. In patients with unstable renal function, e.g. those with acute kidney injury, the eGFR may not accurately reflect actual GFR.Performed By: #### 35059-0, , , 1987-11 ####[facility] LABORATORYCLIA [id number] [place] [address] [place] AMERICAGlucose [Mass/Vol]90 mg/lNAgsbcs44-63Pytt Hospital Comment on above:Order Comment: Specimen Type: BLOOD SPECIMENOrdering Facility: [facility] Address:[address] [place], [place] [address]Result Comment: The [place] Diabetes Association (ADA) provides guidance for cutoff [...] Standards of Medical Care in Diabetes 2016, [place] Diabetes Association. Diabetes Care. 2016.39(Suppl 1).Performed By: #### 02199-9, , , 1985-11 ####[facility] CENTERCLIA [id number] [place] [address] [place] AMERICAPotassium [Moles/Vol]4.0 mmol/LNormal3.7-5.1Avon HospitalComment on above:Order Comment: Specimen Type: BLOOD SPECIMENOrdering Facility: [facility] Address:[address] [place], [place] [address]Suhudyfbj By: #### 09583-6, , , 1987-11 ####[facility] HOSPITALIA [id number] [place] [address] [place] AMERICASodium [Moles/Vol]137 mmol/QGidwzk853-967Oxlx HospitalComment on above:Order Comment: Specimen Type: BLOOD SPECIMENOrdering Facility: [facility] Address:[address] [place], [place] [address]Performed By: #### 94732-0, , , 1987-11 ####[facility] LABORATORYCLIA [id number] [facility] [place] [address] [place] AMERICAUrea nitrogen [Mass/Vol]16 mg/dLNormal7-21Av HospitalComment on above:Order Comment: Specimen Type: BLOOD SPECIMENOrdering Facility: [facility] Address:[address] [place] [address] Performed By: #### 74995-4, , , 1987-11 ####[facility] HOSPITALIA [id number] [facility] [place] [address] [place] AMERICACBC panel Auto (Bld)on 65-88-3853Nzzcellwnpg distribution width (RBC) [Ratio]14.6 %Sbmvgj48.5-15.0Av HospitalComment on above:Order Comment: Specimen Type: BLOOD SPECIMENOrdering Facility: [facility] Address:[address] [place], [place] [address]Performed By: #### 84569-1 ####[facility] HOSPITALIA [id number] [place] [address] [place] AMERICAHematocrit (Bld) [Volume fraction]28.3 %Low36.0-46.0Av HospitalComment on above:Order Comment: Specimen Type: BLOOD SPECIMENOrdering Facility: [facility] Address:[address] [place], [place] [address]Performed By: #### 51832-2 ####[facility] HOSPITALIA [id number] [facility] [place] [address] [place] AMERICAHemoglobin (Bld) [Mass/Vol]8.9 g/dLLow11.5-15.5Avon HospitalComment on above:Order Comment: Specimen Type: BLOOD SPECIMENOrdering Facility: [facility] Address:[address] [place], [place] [address]Performed By: #### 93115-2 ####[facility] LABORATORYIA [id number] [place], [place] [address] [place] [address] (RBC) [Entitic mass]27.9 ciZyajei46.0-34.0Av HospitalComment on above:Order Comment: Specimen Type: BLOOD SPECIMENOrdering Facility: [facility] Address:[address] [place], [place] [address]Performed By: #### 59977-2 ####[facility] LABORATORYCLIA [id number] [place] [address] [facility] (RBC) [Mass/Vol]31.4 g/rLTrylwx24.5-36.0Av HospitalComment on above:Order Comment: Specimen Type: BLOOD SPECIMENOrdering Facility: [facility] Address:[address] [place], [place] [address]Performed By: #### 87569-4 ####[facility]ED HOSPITALIA [id number] [place] [address] [facility] (RBC) [Entitic vol]88.7 vQMflrig40.0-100.0Av HospitalComment on above:Order Comment: Specimen Type: BLOOD SPECIMENOrdering Facility: [facility] Address:[address] [place], [place] [address]Performed By: #### 95662-4 ####[facility] [id number] [place] [address] [facility] RBC (Bld) [#/Vol]10*3/uLNormal<0.01Av HospitalComment on above:Order Comment: Specimen Type: BLOOD SPECIMENOrdering Facility: [facility] Address:[address] [place], [place] [address]Performed By: #### 89359-1 ####[facility] LABORATORYIA [id number] [place] [address] [facility] MEDICAL CENTERPlatelet mean volume (Bld) [Entitic vol]10.4 fLNormal9.0-12.7 Lotus HospitalComment on above:Order Comment: Specimen Type: BLOOD SPECIMENOrdering Facility: [facility] Address:[address] [place] [address]Wbyjwnamr By: #### 40581-4 ####[facility] LABORATORYCLIA [id number] [facility] [place] [address] [facility] JOJO Platelets (Bld) [#/Vol]427 10*3/zIMthm638-107Iqiz HospitalComment on above:Order Comment: Specimen Type: BLOOD SPECIMENOrdering Facility: [facility] Address:[address] [place], [place] [address]Performed By: #### 95128- 2 ####[facility] LABORATORYCLIA [id number] [facility] [place] [address] [facility] CENTERRBC (Bld) [#/Vol]3.19 10*6/uLLow3.90-5.20Avon HospitalComment on above:Order Comment: Specimen Type: BLOOD SPECIMENOrdering Facility: [facility] Address:[address] [place], [place] [address]Performed By: #### 63728-4 ####[facility] LABORATORYCLIA [id number] [facility] [place] [address] [facility] OF AMERICAWBC (d) [#/Vol] 5.17 10*3/uLNormal3.70-11.00Avon HospitalComment on above:Order Comment: Specimen Type: BLOOD SPECIMENOrdering Facility: [facility] Address:[address] [place], [place] [address]Performed By: #### 87091-2 ####[facility] LABORATORYCLIA [id number] [facility] [place] [place] [address] [facility] CENTERCRP SerPl-mCncon 61-50-8060HAI [Mass/Vol]2.0 mg/dLHigh <0.9Avon HospitalComment on above:Order Comment: Specimen Type: BLOOD SPECIMENOrdering Facility: [facility] Address:[address] [place], [place] [address]Performed By: #### 93099-8, 06196-2, 48451-6, 1987- ####[facility]ITALIA [id number] [place] [address] [place] AMERICAHepatic function 2000 panelon 19-96-9066Jdkfuei [Mass/Vol]3.6 g/dLLow3.9-4.9Avon HospitalComment on above:Order Comment: Specimen Type: BLOOD SPECIMENOrdering Facility: [facility] Address:[address] [place], [place] [address]Performed By: #### 68818-2, , , 1987-11 ####[facility]ITALIA [id number] [place] [address] [place] AMERICAALP [Catalytic activity/Vol] 236 U/WCntw31-801Adlq HospitalComment on above:Order Comment: Specimen Type: BLOOD SPECIMENOrdering Facility: [facility] Address:[address] [place], [place] [address]Performed By: #### 92126-4, , , 1987-11 ####[facility]ITALIA [id number] [place] [address] [place] AMERICAALT [Catalytic activity/Vol]20 U/LNormal7-38Av HospitalComment on above:Order Comment: Specimen Type: BLOOD SPECIMENOrdering Facility: [facility] Address:[address] [place], [place] [address]Performed By: #### 41030-4, , , 1987-11 ####[facility]ITALIA [id number] [place] [address] [place] AMERICAAST [Catalytic activity/Vol]18 U/RVaaais37-96[facility] Comment on above:Order Comment: Specimen Type: BLOOD SPECIMENOrdering Facility: [facility] Address:[address] [place] [address] Performed By: #### 25762-3, , , 1987-11 ####[facility] LABORATORYIA [id number] [place] [address] [place] AMERICABilirubin [Mass/Vol]0.2 mg/dLNormal0.2-1.3Avon HospitalComment on above:Order Comment: Specimen Type: BLOOD SPECIMENOrdering Facility: [facility] Address:[address] [place] [address] Performed By: #### 93949-6, , , 1987-11 ####[facility]ITALIA [id number] [place] [address] [place] AMERICABilirubin.conjugated [Mass/Vol]0.1 mg/dLNormal<0.3[facility] Comment on above:Order Comment: Specimen Type: BLOOD SPECIMENOrdering Facility: [facility] Address:[address] [place] [address] Performed By: #### 24627-7, , , 1987-11 ####[facility] [id number] [place] [address] [place] AMERICAProtein [Mass/Vol]6.8 g/dLNormal6.3-8.0Avon HospitalComment on above:Order Comment: Specimen Type: BLOOD SPECIMENOrdering Facility: [facility] Address:[address] [place] [address] [place] [id number] By: #### 88406-8, , , 1987-11 ####[facility]ITALIA [id number] [place] [address] [place] Magnesium SerPl-mCncon 42-12-1392Bbqipeogk [Mass/Vol]1.9 mg/dLNormal1.7-2.3Avon HospitalComment on above:Order Comment: Specimen Type: BLOOD SPECIMENOrdering Facility: [facility] Address:[address] [place], [place] [address]Performed By: #### 04972-0, , , 1987-11 ####[facility] [id number] [place] [address] [place] AMERICANUTRITIONon 83-13-6755SNEMDWDKEVCG ID: [id number] Author: GOSIA BAIG RD Service: Nutrition Therapy [...] Hold: Plan for Reece tomorrow; Please run V5uwpam @ 125mL/hr or even higher 145mL/hr d/t [...] Weight Type: Admit weight Estimated kilocalorie needs: 5939-5692 Calorie Calculation Method: (30-40kcals/kg) Estimated protein needs [...] assess Potential Signs of (more content not included)...NormalAvon HospitalPTT, ANTICOAGULANT THERAPYon 93-71-2443pAOE Coag (PPP) [Time]60.9 sHigh23.0-32.4Avon HospitalComment on above:Order Comment: Specimen Type: BLOOD SPECIMENOrdering Facility: [facility] Address:[address] [place], [place] [address]Performed By: #### PTTAC ####[facility]IA [id number] [place] [address] [place] AMERICAaPTT Coag (PPP) [Time]65.0 sHigh23.0-32.4Avon HospitalComment on above:Order Comment: Specimen Type: BLOOD SPECIMENOrdering Facility: [facility] Address:[address] [place], [place] [address]Performed By: #### PTTAC ####[facility] [id number] [place] [address] [place] AMERICAPhosphate SerPl-mCncon 00-92-5603Bnzmenjab [Mass/Vol]6.0 mg/dL High2.7-4.8Avon HospitalComment on above:Order Comment: Specimen Type: BLOOD SPECIMENOrdering Facility: [facility] Address:[address] [place], [place] [address]Performed By: #### 2777-1 ####[facility] [id number] [place] [address] [place] TOXICOLOGY SCREEN, ROUTINE URINEon 46-89-1493Xcqefexuwoab Confirm (U) [Mass/Vol] NegativeNormalNegativeAvon HospitalComment on above:Order Comment: Specimen Type: URINE SPECIMENOrdering Facility: [facility] Address:[address] [place] [address] Comment: Cutoff threshold at 1000 ng/mL. Performed By: #### UTOX2 ####[facility]ITALIA [id number] [place] [address] [place] AMERICABARBITURATES, URINE NegativeNormalNegativeAvon HospitalComment on above:Order Comment: Specimen Type: URINE SPECIMENOrdering Facility: [facility] Address:[address] [place], [place] [address]Result Comment: Cutoff threshold at 200 ng/mL. Performed By: #### UTOX2 ####[facility] [id number] [place] [address] [place] AMERICABENZODIAZEPINES, UR PositiveAbnormalNegativeAvon HospitalComment on above:Order Comment: Specimen Type: URINE SPECIMENOrdering Facility: [facility] Address:[address] [place], [place] [address]Result Comment: Cutoff threshold at 200 ng/mL. Performed By: #### UTOX2 ####[facility]ITALIA [id number] [place] [address] [place] AMERICACannabinoids Screen Ql (U)PositiveAbnormalNegativeAvon HospitalComment on above:Order Comment: Specimen Type: URINE SPECIMENOrdering Facility: [facility] Address:[address] [place], [place] [address]Result Comment: Cutoff threshold at 50 ng/mL.Performed By: #### UTOX2 ####[facility] LABORATORYIA [id number] [place] [address] [place] Cocaine Ql (U)NegativeNormalNegativeAvon HospitalComment on above:Order Comment: Specimen Type: URINE SPECIMENOrdering Facility: [facility] Address:[address] [place], [place] [address]Result Comment: Cutoff threshold at 300 ng/mL.Performed By: #### UTOX2 ####[facility] LABORATORYIA [id number] [place] [address] [place] Ethanol (U) [Mass/Vol]<11Normal<11Avon HospitalComment on above:Order Comment: Specimen Type: URINE SPECIMENOrdering Facility: [facility] Address:[address] [place], [place] [address]Performed By: #### UTOX2 ####[facility] [id number] [place] [address] [place] AMERICAOpiates Screen Ql (U)NegativeNormalNegativeAvon Hospital Comment on above:Order Comment: Specimen Type: URINE SPECIMENOrdering Facility: [facility] Address:[address] [place], [place] [address]Result Comment: Cutoff threshold at 300 ng/mL.Performed By: #### UTOX2 ####[facility]ITALIA [id number] [place] [address] [place] AMERICAoxyCODONE cutoff Screen (U) [Mass/Vol]PositiveAbnormal NegativeAvon HospitalComment on above:Order Comment: Specimen Type: URINE SPECIMENOrdering Facility: [facility] Address:[address] [place], [place] [address]Result Comment: Cutoff threshold at 100 ng/mL.Performed By: #### UTOX2 ####[facility] [id number] [place] [address] [place] AMERICAPhencyclidine Ql (U)NegativeNormal NegativeAvon HospitalComment on above:Order Comment: Specimen Type: URINE SPECIMENOrdering Facility: [facility] Address:[address] [place], [place] [address]Result Comment: Cutoff threshold at 25 ng/mL.Performed By: #### UTOX2 ####[facility] LABORATORYIA [id number] [place] [address] [facility] CENTERCB panel Auto (Bld)on 09-03-2024 Erythrocyte distribution width (RBC) [Ratio]14.9 %Bugcqf27.5-15.0Av Hospital Comment on above:Order Comment: Specimen Type: BLOOD SPECIMENOrdering Facility: [facility] Address:[address] [place] [address] Performed By: #### 71684-9 ####[facility] [id number] [place] [address] [facility] CENTERHematocrit (Bld) [Volume fraction]30.1 %Low36.0-46.0Av HospitalComment on above:Order Comment: Specimen Type: BLOOD SPECIMENOrdering Facility: [facility] Address:[address] [place], [place] [address]Performed By: #### 97878-1 ####[facility] [id number] [place] [address] [facility] CENTERHemoglobin (Bld) [Mass/Vol]9.3 g/dLLow11.5-15.5Avo HospitalComment on above:Order Comment: Specimen Type: BLOOD SPECIMENOrdering Facility: [facility] Address:[address] [place], [place] [address]Performed By: #### 87061-3 ####[facility]ITALIA [id number] [place] [address] [facility] (RBC) [Entitic mass]27.4 gwNllwje85.0-34.0Av HospitalComment on above:Order Comment: Specimen Type: BLOOD SPECIMENOrdering Facility: [facility] Address:[address] [place], [place] [address]Performed By: #### 61853-3 ####[facility] [id number] [place] [address] [place] AMERICAMCHC (RBC) [Mass/Vol]30.9 g/dVNszvjz23.5-36.0Av HospitalComment on above:Order Comment: Specimen Type: BLOOD SPECIMENOrdering Facility: [facility] Address:[address] [place], [place] [address]Performed By: #### 79278-7 ####[facility] LABORATORYCLIA [id number] [facility] [place] [address] [facility] CENTERMCV (RBC) [Entitic vol]88.8 eSFcbwvb75.0-100.0Av HospitalComment on above:Order Comment: Specimen Type: BLOOD SPECIMENOrdering Facility: [facility] Address:[address] [place], [place] [address]Performed By: #### 39921-6 ####[facility] LABORATORYIA [id number] [place] [address] [facility] HOSPITALucleated RBC (Bld) [#/Vol]10*3/uLNormal<0.01Av HospitalComment on above:Order Comment: Specimen Type: BLOOD SPECIMENOrdering Facility: [facility] Address:[address] [place], [place] [address]Performed By: #### 28708-9 ####[facility]ITALIA [id number] [facility] [place] [address] [facility] AMERICAPlatelet mean volume (Bld) [Entitic vol]10.3 fLNormal9.0-12.7Avon HospitalComment on above: Order Comment: Specimen Type: BLOOD SPECIMENOrdering Facility: [facility] Address:[address] [place], [place] [address]Performed By: #### 75409- 2 ####[facility]ITALIA [id number] [facility] [place] [address] [place] AMERICAPlatelets (Bld) [#/Vol]456 10*3/gBBlod352-511 Lotus HospitalComment on above:Order Comment: Specimen Type: BLOOD SPECIMENOrdering Facility: [facility] Address:[address] [place], [place] [address]Performed By: #### 29449-6 ####[facility] LABORATORYCLIA [id number] [facility] [place] [address] [facility] CENTERRB (Bld) [#/Vol]3.39 10*6/uLLow3.90-5.20[place] HospitalComment on above:Order Comment: Specimen Type: BLOOD SPECIMENOrdering Facility: [facility] Address:[address] [place], [place] [address]Performed By: #### 17713- 2 ####[facility] LABORATORYCLIA [id number] [place] [address] [facility] ([facility]) [#/Vol]7.73 10*3/uLNormal3.70-11.00 [place] HospitalComment on above:Order Comment: Specimen Type: BLOOD SPECIMENOrdering Facility: [facility] Address:[address] [place], [place] [address]Performed By: #### 78564-8 ####[facility]ITALIA [id number] [place] [address] [facility] OF JOJO CONSULT PROGon 32-41-2674GATTFBR PROGHNO ID: [id number] Author: SHERLY LORENZO DO Service: Hematology/Oncology Author Type: Physician Type: Consult Progress Note Filed: 09/03/2024 11:01 Note Text: Heme Patient is iron deficient, will give Ferrlecit while here in the hospital. Note that IR has been consulted [facility] Magnesium SerPl-mCncon 27-38-0180Mvgqdjuqe [Mass/Vol]2.0 mg/dLNormal1.7-2.3Avon HospitalComment on above:Order Comment: Specimen Type: BLOOD SPECIMENOrdering Facility: [facility] Address:[address] [place], [place] [address]Performed By: #### 44327-9, 90103-4 ####[facility] LABORATORYIA [id number] [place] [address] [place] NUTRITIONon 16-39-7986RTNJVXADMCZR ID: [id number] Author: GHASSAN MARSH RD Service: Nutrition Therapy Author Type: Registered Dietitian Type: Nutrition Filed: 09/03/2024 08:59 Note Text: NUTRITION BRIEF NOTE SERVICE DATE: 09/03/2024 Care Plan: Change diet to GI soft, Gluten Controlles, [place]ot[place] Controlled, 10g sugar per recent admission at [facility] Supplements: Ensure Max, Drip Drop Parenteral Nutrition [...] week) Interval History: RD currently offsite at [facility]. Patient with recent d/c from [facility]. Plan for IR this admission for Reece placement. Per Dr. Dwayne hoffmann to use current PICC for TPN. Orders written and pended. Full assessment to follow. MNT Billing: $ Routine Care : 1-15 minutes SIGNATURE: Ghassan Marsh RD, LD DATE: 09/03/2024 TIME: 8:57 AMNormalUniversity Of Utah HospitalPTT, ANTICOAGULANT THERAPYon 66-63-5391yGFF Coag (PPP) [Time]32.8 sHigh23.0-32.4Avon [facility]ta View HospitalComment on above:Order Comment: Specimen Type: BLOOD SPECIMENOrdering Facility: [facility] Address:[address] [place], [place] [address]Performed By: #### PTTAC ####[facility] LABORATORYCLIA [id number] [address]aPTT Coag (PPP) [Time]34.5 sHigh23.0-32.4Avon [facility] Comment on above:Order Comment: Specimen Type: BLOOD SPECIMENOrdering Facility: [facility] Address:[address] [place] [address] Performed By: #### PTTAC ####[facility] LABORATORYIA [id number] [place] [address] [place] AMERICARenal function 2000 panelon 35-47-1545Xgefgnx [Mass/Vol]3.8 g/dLLow3.9-4.9Avon HospitalComment on above:Order Comment: Specimen Type: BLOOD SPECIMENOrdering Facility: [facility] Address:[address] [place], [place] [address]Performed By: #### 53692-7, 61428-6 ####[facility] LABORATORYCLIA [id number] [place] [address] [place] AMERICAAnion gap [Moles/Vol]15 mmol/LNormal8-15Avon HospitalComment on above:Order Comment: Specimen Type: BLOOD SPECIMENOrdering Facility: [facility] Address:[address] [place], [place] [address]Performed By: #### 51884-0, 41186-2 ####[facility]ITALIA [id number] [place] [address] [place] AMERICACalcium [Mass/Vol]10.5 mg/dLHigh8.5-10.2Avon HospitalComment on above:Order Comment: Specimen Type: BLOOD SPECIMENOrdering Facility: [facility] Address:[address] [place], [place] [address]Performed By: #### 90531-2, 64199-2 ####[facility] LABORATORYIA [id number] [place] [address] [place] AMERICAChloride [Moles/Vol]95 mmol/L Vaf53-196Knbu HospitalComment on above:Order Comment: Specimen Type: BLOOD SPECIMENOrdering Facility: [facility] Address:[address] [place], [place] [address]Performed By: #### 11272-4, 14080-5 ####[facility] LABORATORYIA [id number] [place] [address] [place] AMERICACO2 [Moles/Vol]30 mmol/PIwjipv12-89Amlg HospitalComment on above:Order Comment: Specimen Type: BLOOD SPECIMENOrdering Facility: [facility] Address:[address] [place], [place] [address]Mriqpjysy By: #### 64883-6, 96286-4 ####[facility]ITALIA [id number] [place] [address] [place] AMERICACreatinine [Mass/Vol]0.63 mg/dLNormal0.58-0.96University Of Utah HospitalComment on above:Order Comment: Specimen Type: BLOOD SPECIMENOrdering Facility: [facility] Address:[address] [place], [place] [address]Performed By: #### 84385-3, 83201-3 ####[facility]ITALIA [id number] [place] [address] [place] AMERICACreatinine and Glomerular filtration rate.predicted panel (S/P/Bld)118 mL/min/1.73m???Normal>=60Av HospitalComment on above:Order Comment: Specimen Type: BLOOD SPECIMENOrdering Facility: [facility] Address:[address] [place], [place] [address]Result Comment: Estimated Glomerular Filtration Rate (eGFR) is calculated using the 2020 CKD-EPI cre atinine equation. This equation utilizes serum creatinine, sex, and age as parameters. The creatinine assay has traceable calibration to isotope dilution- mass spectrometry. Refer to KDIGO guidelines for clinical interpretation. In patients with unstable renal function, e.g. those with acute kidney injury, the eGFR may not accurately reflect actual GFR.Performed By: #### 35565-2, 61826-5 ####[facility] LABORATORYIA [id number] [place] [address] [place] AMERICAGlucose [Mass/Vol]91 mg/aUOuprzc79-24Kdni Hospital Comment on above:Order Comment: Specimen Type: BLOOD SPECIMENOrdering Facility: [facility] Address:[address] [place] [address]Ewnpcc Comment: The [place] Diabetes Association (ADA) provides guidance for cutoff [...] Standards of Medical Care in Diabetes 2016, [place] Diabetes Association. Diabetes Care. 2016.39(Suppl 1).Performed By: #### 62578-4, 57733-2 ####[facility]ITALIA [id number] [place] [address] [place] AMERICAPhosphate [Mass/Vol]6.6 mg/dLHigh2.7-4.8Avon HospitalComment on above:Order Comment: Specimen Type: BLOOD SPECIMENOrdering Facility: [facility] Address:[address] [place], [place] [address]Performed By: #### 29982-3, 19907-6 ####[facility]IA [id number] [place] [address] [place] Potassium [Moles/Vol]4.2 mmol/LNormal3.7-5.1Avon HospitalComment on above:Order Comment: Specimen Type: BLOOD SPECIMENOrdering Facility: [facility] Address:[address] [place], [place] [address]Performed By: #### 65995- 9, 34261-1 ####[facility]ITALIA [id number] [place] [address] [place] AMERICASodium [Moles/Vol]140 mmol/LNormal 136-144Av HospitalComment on above:Order Comment: Specimen Type: BLOOD SPECIMENOrdering Facility: [facility] Address:[address] [place], [place] [address]Performed By: #### 95065-5, 34647-5 ####[facility]IA [id number] [place] [address] [place] AMERICAUrea nitrogen [Mass/Vol]14 mg/dLNormal7-21Avon HospitalComment on above:Order Comment: Specimen Type: BLOOD SPECIMENOrdering Facility: [facility] Address:[address] [place] [address] Performed By: #### 14356-5, 11619-9 ####[facility]IA [id number] [place] [address] [place] AMERICAB- HCG SerPl-aCncon 23-47-7710VMU.beta subunit Qnm[IU]/mLNormal<5.0Av Hospital Comment on above:Order Comment: Specimen Type: BLOOD SPECIMENOrdering Facility: [facility] Address:[address] [place], [place] [address]Result Comment: NegativePerformed By: #### 69223-8 ####[facility]ITALIA [id number] [place] [address] [place] [facility]ITALCB W Auto Differential panel (Bld)on 24-10-5044Xjiwmuzbx (Bld) [#/Vol]0.05 10*3/uL Normal<0.11Avon HospitalComment on above:Order Comment: Specimen Type: BLOOD SPECIMENOrdering Facility: [facility] Address:[address] [place], [place] [address]Performed By: #### 50192-0 ####[facility] [id number] [place] [address] [place] Basophils/100 WBC (Bld)0.5 %NormalAv HospitalComment on above:Order Comment: Specimen Type: BLOOD SPECIMENOrdering Facility: [facility] Address:[address] [place], [place] [address]Performed By: #### 51587-5 ####[facility]ITALIA [id number] [place] [address] [place] AMERICADifferential cell count method Nom (Bld)AutoNormalAvon HospitalComment on above:Order Comment: Specimen Type: BLOOD SPECIMENOrdering Facility: [facility] Address:[address] [place], [place] [address]Performed By: #### 03165-4 ####[facility]IA [id number] [place] [address] [place] AMERICAEosinophils (Bld) [#/Vol]0.20 10*3/uLNormal<0.46Av HospitalComment on above:Order Comment: Specimen Type: BLOOD SPECIMENOrdering Facility: [facility] Address:[address] [place], [place] [address]Performed By: #### 54974-5 ####[facility] [id number] [place] [address] [place] AMERICAEosinophils/100 WBC (Bld)2.0 %NormalAv HospitalComment on above:Order Comment: Specimen Type: BLOOD SPECIMENOrdering Facility: [facility] Address:[address] [place] [address] Performed By: #### 05731-6 ####[facility] [id number] [place] [address] [place] AMERICAErythrocyte distribution width (RBC) [Ratio]15.0 %Duwobn67.5-15.0Av HospitalComment on above:Order Comment: Specimen Type: BLOOD SPECIMENOrdering Facility: [facility] Address:[address] [place], [place] [address]Performed By: #### 05582-9 ####[facility] [id number] [place] [address] [place] AMERICAHematocrit (Bld) [Volume fraction] 26.5 %Low36.0-46.0Av HospitalComment on above:Order Comment: Specimen Type: BLOOD SPECIMENOrdering Facility: [facility] Address:[address] [place], [place] [address]Performed By: #### [id number] ####[facility] [id number] [place] [address] [place] AMERICAHemoglobin (Bld) [Mass/Vol]8.6 g/dLLow11.5-15.5[facility] Comment on above:Order Comment: Specimen Type: BLOOD SPECIMENOrdering Facility: [facility] Address:[address] [place] [address] Performed By: #### 85017-8 ####[facility] [id number] [place] [address] [place] AMERICAImmature granulocytes (Bld) [#/Vol]0.05 10*3/uLNormal<0.10Avon HospitalComment on above: Order Comment: Specimen Type: BLOOD SPECIMENOrdering Facility: [facility] Address:[address] [place], [place] [address]Performed By: #### 58588- 8 ####[facility] [id number] [place] [address] [place] AMERICAImmature granulocytes/100 WBC (Bld)0.5 %Normal [place]ountstown HospitalComment on above:Order Comment: Specimen Type: BLOOD SPECIMENOrdering Facility: [facility] Address:[address] [place], [place] [address]Performed By: #### 64308-7 ####[facility] [id number] [place] [address] [place] Lymphocytes (Bld) [#/Vol]1.61 10*3/uLNormal1.00-4.00Av HospitalComment on above:Order Comment: Specimen Type: BLOOD SPECIMENOrdering Facility: [facility] Address:[address] [place], [place] [address]Performed By: #### 03201-0 ####[facility] [id number] [place] [address] [place] AMERICALymphocytes/100 WBC (Bld)16.0 % NormalBlountstown HospitalComment on above:Order Comment: Specimen Type: BLOOD SPECIMENOrdering Facility: [facility] Address:[address] [place], [place] [address]Performed By: #### 30187-8 ####[facility] [id number] [place] [address] [place] AMERICAMCH (RBC) [Entitic mass]28.6 lmDlrxgw88.0-34.0Blountstown HospitalComment on above:Order Comment: Specimen Type: BLOOD SPECIMENOrdering Facility: [facility] Address:[address] [place], [place] [address]Performed By: #### 95812- 8 ####[facility] LABORATORYCLIA [id number] [place] [address] [place] OF [facility] VALLEY HOSPITALMCHC (RBC) [Mass/Vol]32.5 g/gTEjamqm60.5-36.0 [place] HospitalComment on above:Order Comment: Specimen Type: BLOOD SPECIMENOrdering Facility: [facility] Address:[address] [place], [place] [address]Performed By: #### 06579-6 ####[facility] [id number] [place] [address] [place] [facility]LEY HOSPITALMCV (RBC) [Entitic vol]88.0 cXTnwrtf85.0-100.0Av HospitalComment on above:Order Comment: Specimen Type: BLOOD SPECIMENOrdering Facility: [facility] Address:[address] [place], [place] [address]Performed By: #### 71991- 8 ####[facility] [id number] [place], [place] [address] [place] [address] OF [facility] VALLEY HOSPITALMonocytes (Bld) [#/Vol]0.74 10*3/uLNormal<0.87 [place] HospitalComment on above:Order Comment: Specimen Type: BLOOD SPECIMENOrdering Facility: [facility] Address:[address] [place], [place] [address]Performed By: #### 33303-3 ####[facility] LABORATORYIA [id number] [place] [id number] [facility] OF [place] Monocytes/100 WBC (Bld)7.4 %NormalAv HospitalComment on above:Order Comment: Specimen Type: BLOOD SPECIMENOrdering Facility: [facility] Address:[address] [place], [place] [address]Performed By: #### 58415-8 ####[facility] LABORATORYCLIA [id number] [facility] [place] [address] [place] AMERICANeutrophils (Bld) [#/Vol]7.39 10*3/uLNormal1.45-7.50Av HospitalComment on above:Order Comment: Specimen Type: BLOOD SPECIMENOrdering Facility: [facility] Address:[address] [place], [place] [address]Performed By: #### 16677-5 ####[facility] [id number] [place] [address] [place] AMERICANeutrophils/100 WBC (Bld)73.6 %NormalAv HospitalComment on above:Order Comment: Specimen Type: BLOOD SPECIMENOrdering Facility: [facility] Address:[address] [place], [place] [address]Performed By: #### 01756-9 ####[facility] [id number] [place] [address] [place] AMERICANucleated RBC (Bld) [#/Vol]10*3/uLNormal<0.01Av Hospital Comment on above:Order Comment: Specimen Type: BLOOD SPECIMENOrdering Facility: [facility] Address:[address] [place] [address] Performed By: #### 22217-5 ####[facility] [id number] [place] [address] [place] AMERICANucleated RBC/100 WBC (Bld) [Ratio]0.0 /100 WBCNormalAvon HospitalComment on above:Order Comment: Specimen Type: BLOOD SPECIMENOrdering Facility: [facility] Address:[address] [place], [place] [address]Performed By: #### 34816-4 ####[facility] [id number] [place] [address] [place] AMERICAPlatelet mean volume (Bld) [Entitic vol]10.4 fLNormal 9.0-12.7Avon HospitalComment on above:Order Comment: Specimen Type: BLOOD SPECIMENOrdering Facility: [facility] Address:[address] [place], [place] [address]Performed By: #### 39085-4 ####[facility] LABORATORYCLIA [id number] [place] [address] [facility] Platelets (Bld) [#/Vol]442 10*3/iTGtwg065-037Qrxl HospitalComment on above:Order Comment: Specimen Type: BLOOD SPECIMENOrdering Facility: [facility] Address:[address] [place], [place] [address]Performed By: #### 33618- 8 ####[facility] LABORATORYCLIA [id number] [place] [address] [facility] MEDICAL CENTERRBC (d) [#/Vol]3.01 10*6/uLLow3.90-5.20Avon HospitalComment on above:Order Comment: Specimen Type: BLOOD SPECIMENOrdering Facility: [facility] Address:[address] [place], [place] [address]Performed By: #### 12743-7 ####[facility] LABORATORYIA [id number] [place] [address] [facility]ICAL CENTERWBC (d) [#/Vol] 10.04 10*3/uLNormal3.70-11.00Av HospitalComment on above:Order Comment: Specimen Type: BLOOD SPECIMENOrdering Facility: [facility] Address:[address] [place], [place] [address]Performed By: #### 38772-9 ####[facility] LABORATORYIA [id number] [place] [address] [facility] CENTERCONSULTon 99-80-4023OMCKGQHZWG ID: [id number] Author: SHERLY LORENZO DO Service: Hematology/Oncology Author [...] LUE PICC with nightly TPN. Today her [facility] nurse and boyfriend were having difficulty [...] history. (Not in a hospital admission) Current Facility-Administered Medications Medication Dose Route Frequency [...] IBUPROFEN 07/30/2024 Other: See Comments NSAIDS (NON-STEROIDAL ANTI-INFLAM*07/30/2024 Other: See Comments Fully Assessed 09/01/2024 COMPLETE [...] hemoglobin 8.6 plate count 442 MCV 88 Impression/Recommendations Principal Problem: Acute deep vein thrombosis (DVT) [...] hospital. Medication and Non-Pharm (more content not included)...[facility] Comprehensive metabolic 2000 panelon 18-50-3315Klipxpt [Mass/Vol]3.3 g/dLLow 3.9-4.9Avon HospitalComment on above:Order Comment: Specimen Type: BLOOD SPECIMENOrdering Facility: [facility] Address:[address] [place], [place] [address]Performed By: #### 30371-4, , 2776-07 ####[facility] LABORATORYCLIA [id number] [place] [address] [place] AMERICAALP [Catalytic activity/Vol]211 U/BGgxs35-100Crrn Hospital Comment on above:Order Comment: Specimen Type: BLOOD SPECIMENOrdering Facility: [facility] Address:[address] [place], [place] [address] Performed By: #### 58949-1, , 2776-07 ####[facility] LABORATORYCLIA [id number] [facility] [place] [address] [place] AMERICAALT [Catalytic activity/Vol]31 U/LNormal7-38Av HospitalComment on above:Order Comment: Specimen Type: BLOOD SPECIMENOrdering Facility: [facility] Address:[address] [place], [place] [address]Performed By: #### 87290- 8, , 2776-07 ####[facility] LABORATORYCLIA [id number] [place] [address] [place] AMERICAAnion gap [Moles/Vol]15 mmol/LNormal8-15Av HospitalComment on above:Order Comment: Specimen Type: BLOOD SPECIMENOrdering Facility: [facility] Address:[address] [place], [place] [address]Performed By: #### 69332-2, , 2776-07 ####[facility]ITALIA [id number] [place] [address] [place] AMERICAAST [Catalytic activity/Vol]31 U/FUasgqd70-39Dckj HospitalComment on above:Order Comment: Specimen Type: BLOOD SPECIMENOrdering Facility: [facility] Address:[address] [place], [place] [address]Performed By: #### 26699-3, , 2776-07 ####[facility] [id number] [place] [address] [place] AMERICABilirubin [Mass/Vol]0.2 mg/dLNormal0.2-1.3Avon HospitalComment on above:Order Comment: Specimen Type: BLOOD SPECIMENOrdering Facility: [facility] Address:[address] [place], [place] [address] Performed By: #### 64208-7, , 2776-07 ####[facility] [id number] [place] [address] [place] Calcium [Mass/Vol]9.9 mg/dLNormal8.5-10.2Avon HospitalComment on above:Order Comment: Specimen Type: BLOOD SPECIMENOrdering Facility: [facility] Address:[address] [place] [address]Xxjilunve By: #### 84828- 8, , 2776-07 ####[facility]IA [id number] [place] [address] [place] AMERICAChloride [Moles/Vol]96 mmol/L Rro11-808Rset HospitalComment on above:Order Comment: Specimen Type: BLOOD SPECIMENOrdering Facility: [facility] Address:[address] [place], [place] [address]Performed By: #### 94170-3, , 2776-07 ####[facility] LABORATORYCLIA [id number] [facility] [place] [address] [place] AMERICACO2 [Moles/Vol]25 mmol/NHnzhos73-92Iopt HospitalComment on above:Order Comment: Specimen Type: BLOOD SPECIMENOrdering Facility: [facility] Address:[address] [place], [place] [address]Performed By: #### 12616-4, , 2776-07 ####[facility] CENTERCLIA [id number] [facility] [place] [address] [place] AMERICACreatinine [Mass/Vol]0.54 mg/dLLow0.58-0.96Av HospitalComment on above:Order Comment: Specimen Type: BLOOD SPECIMENOrdering Facility: [facility] Address:[address] [place], [place] [address]Performed By: #### 24323-9, , 2776-07 ####[facility]ITALIA [id number] [facility] [place] [address] [place] AMERICACreatinine and Glomerular filtration rate.predicted panel (S/P/Bld)123 mL/min/1.73m???Normal>=60Av HospitalComment on above:Order Comment: Specimen Type: BLOOD SPECIMENOrdering Facility: [facility] Address:[address] [place], [place] [address]Result Comment: Estimated Glomerular Filtration Rate (eGFR) is calculated using the 2020 CKD-EPI creatinine equation. This equation utilizes serum creatinine, sex, and age as parameters. The creatinine assay has traceable calibration to isotope dilution-mass spectrometry. Refer to KDIGO guidelines for clinical interpretation. In patients with unstable renal function, e.g. those with acute kidney injury, the eGFR may not accurately reflect actual GFR.Performed By: #### 33933-3, , 2776-07 ####[facility] LABORATORYCLIA [id number] [facility] [place] [address] [place] AMERICAGlucose [Mass/Vol] 98 mg/nFFsvxno78-61Jnvi HospitalComment on above:Order Comment: Specimen Type: BLOOD SPECIMENOrdering Facility: [facility] Address:[address] [place], [place] [address]Result Comment: The [place] Diabetes Association (ADA) provides guidance for cutoff [...] Standards of Medical Care in Diabetes 2016, [place] Diabetes Association. Diabetes Care. 2016.39(Suppl 1).Performed By: #### 22923-3, 06185, 2776-07 ####[facility] LABORATORYCLIA [id number] [place] [address] [place] AMERICAPotassium [Moles/Vol]4.2 mmol/L Normal3.7-5.1Avon HospitalComment on above:Order Comment: Specimen Type: BLOOD SPECIMENOrdering Facility: [facility] Address:[address] [place] [address]Auesbmdpy By: #### 24847-8, , 2776-07 ####[facility] LABORATORYCLIA [id number] [place] [address] [place] AMERICAProtein [Mass/Vol]6.8 g/dLNormal6.3-8.0Av HospitalComment on above:Order Comment: Specimen Type: BLOOD SPECIMENOrdering Facility: [facility] Address:[address] [place], [place] [address]Performed By: #### 82533-8, , 2776-07 ####[facility] LABORATORYCLIA [id number] [place] [address] [place] AMERICASodium [Moles/Vol] 136 mmol/JSmgbum452-537Lywe HospitalComment on above:Order Comment: Specimen Type: BLOOD SPECIMENOrdering Facility: [facility] Address:[address], [place] [address]Xstfcqsfy By: #### 90064-7, , 2776-07 ####[facility] LABORATORYCLIA [id number] [facility] [place] [address] [place] OF AMERICAUrea nitrogen [Mass/Vol]18 mg/dLNormal7-21Av HospitalComment on above:Order Comment: Specimen Type: BLOOD SPECIMENOrdering Facility: [facility] Address:[address] [facility] [address] [place], [place] [address]Neqdlkpng By: #### 04449-9, , 2776-07 ####[facility] LABORATORYCLIA [id number] [place] [address] [place] AMERICAED PROV NOTEon 88-90-9002YC PROV NOTEHNO ID: [id number] Author: RUFINA PINZON MD Service: Emergency Medicine [...] Patient states that she was admitted to [facility] for bowel obstruction where she received surgery and had a colostomy placed. She originally had a PICC line placed in her right arm and while inpatient, developed a DVT in the right arm. The PICC line was pulled and a new PICC line was placed in the left arm. Patient states that she was discharged from [facility] 2 days ago, and has been receiving [...] breath. History provided by: Patient and spouse healthcare interpreter used: No PAST MEDICAL HISTORY Diagnosis Date [...] PICC line, initial encounter (HCC) Colostomy present (HCC) MDM / Disposition / Plan Patient is a 38-year-old female presenting for evaluation of occluded PICC line. On exam, patient is in no acute distress is nontoxic-appearing. She is however, tearful, and upset regarding multiple hospitalizations and diagnoses. Lungs clear to STs bilaterally, no additional sounds appreciated. Abdomen is soft, colostomy present, brown stool noted in colostomy (more content not included)... NormalAvon HospitalFerritin SerPl-mCncon 80-92-2667Nfsklboy [Mass/Vol]524.1 ng/mQMgwq34.7-205.1Avon HospitalComment on above:Order Comment: Specimen Type: BLOOD SPECIMENOrdering Facility: [facility] Address:[address] [place] [address]Owgevsigs By: #### 87818-0, 2276-4 ####[facility] LABORATORYCLIA [id number] [facility] [place] [address] [place] AMERICAHISTORY PHYSICALon 45-17-5962ARMXUEF PHYSICALHNO ID: [id number] Author: KEYSHAWN STONE APRN.TOWER SUPERVISOR Service: Hospital Medicine Author Type: Nurse Practitioner Type: H&P Filed: 09/02/2024 04:25 Note Text: DEPARTMENT OF HOSPITAL MEDICINE HISTORY AND PHYSICAL EXAM SERVICE DATE: 09/02/2024 SERVICE TIME: 3:40 AM Primary Care Physician: No primary care provider on file. 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 Patient recently discharged on 08/30/24 from . She was discharged home with LUE PICC with nightly TPN. Today her [facility] nurse and boyfriend were having difficulty [...] mg by mouth three times a day. diphenoxylate-atropine (LOMOTIL) 2.5-0.025 mg per tablet No No [...] No No Sig: Abraham (more content not included)...NormalAv HospitalIron and Iron binding capacity panelon 84-60-6805Dqdh [Mass/Vol]33 ug/lOQku04-512Fzbv HospitalComment on above:Order Comment: Specimen Type: BLOOD SPECIMENOrdering Facility: [facility] Address:[address] [place] [address] Performed By: #### 04415-5, 2275-10 ####[facility]ITALIA [id number] [place] [address] [place] Iron binding capacity [Mass/Vol]255 ug/aTMqihmi237-388Ylep HospitalComment on above:Order Comment: Specimen Type: BLOOD SPECIMENOrdering Facility: [facility] Address:[address] [place], [place] [address]Performed By: #### 81319-0, 2275-10 ####[facility]ITALIA [id number] [place] [address] [place] AMERICAIron/TIBC [Molar ratio]12.9 % Low15.0-57.0[facility] HospitalComment on above:Order Comment: Specimen Type: BLOOD SPECIMENOrdering Facility: [facility] Address:[address] [place], [place] [address]Performed By: #### 61522-9, 2275- ####[facility] LABORATORYIA [id number] [place] [address] [place] AMERICAMagnesium SerPl-mCncon 76-99-4774Krwpjmter [Mass/Vol]1.9 mg/dL Normal1.7-2.3Avirtua marl[facility] HospitalComment on above:Order Comment: Specimen Type: BLOOD SPECIMENOrdering Facility: [facility] Address:[address] [place], [place] [address]Performed By: #### 12436-1, 40985-9, 2777-1 ####[facility] LABORATORYCLIA [id number] [place] [address] [facility]ENTERPT panel Coag (PPP)on 62-64-0866RIJ Coag (PPP) [Relative time] 1.1 {INR}Normal0.9-1.3Avirtua marl[place] HospitalComment on above:Order Comment: Specimen Type: BLOOD SPECIMEN [facility]: [facility] Address: [address] [place], [place] [address]Result Comment: Vitamin K Antagonist (VKA) Therapeutic Range: INR 2 to 3 (Target INR of 2.5) Note: For patients treated with VKA drugs, such as warfarin, the [place] [employer] 2012 Guideline recommends [...] Aubrey RA, et al. JACC 2017, 70: 252-289Performed By: #### 78176-0, PTTAC, 87413-0 #### [facility] CLIA [id number] [place] [address] [place] OF AMERICAPT Coag (PPP) [Time]11.8 sNormal9.7-13.0 Blountstown HospitalComment on above:Order Comment: Specimen Type: BLOOD SPECIMEN [facility]ing [facility]: [facility] Address: [address] [place], [place] [address]Performed By: #### 25097-0, PTTAC, 43590-9 #### [facility] CLIA [id number] [address] [place] [address] [place] AMERICAPTT, ANTICOAGULANT THERAPYon 09-02-2024 aPTT Coag (PPP) [Time]33.2 sHigh23.0-32.4Avon HospitalComment on above:Order Comment: Specimen Type: BLOOD SPECIMENOrdering Facility: [facility] Address:[address] [place], [place] [address]Performed By: #### PTTAC ####[facility] LABORATORYCLIA [id number] [place] [address] [place] OF [facility] VALLEY HOSPITALaPTT Coag (PPP) [Time]Hrzftr09.0-32.4Avon Hospital Comment on above:Order Comment: Specimen Type: BLOOD SPECIMENOrdering Facility: [facility] Address:[address] [place], [place] [address]Result Comment: Clotted specimen Corrected result: Previously reported as 29.3 sec on 09/02/2024 at 9:36 PM EST. Performed By: #### PTTAC ####[facility] LABORATORYCLIA [id number] [place] [address] [place] OF [facility] VALLEY HOSPITALaPTT Coag (PPP) [Time]21.1 sLow23.0-32.4Avon HospitalComment on above:Order Comment: Specimen Type: BLOOD SPECIMEN [facility]: [facility] Address: [address] [place], [place] [address]Performed By: #### 88347-4, PTTAC, 63464-1 #### [facility] CLIA [id number] [place] [address] [place] AMERICAPhosphate SerPl-mCncon 09-02-2024 Phosphate [Mass/Vol]5.8 mg/dLHigh2.7-4.8Avon HospitalComment on above:Order Comment: Specimen Type: BLOOD SPECIMENOrdering Facility: [facility] Address:[facility] [place], [place] [address]Fwnjljjei By: #### 86078- 8, 78942-9, 2777-1 ####[facility]PITALIA [id number] [place] [address] [facility] CENTERaPTT PPPon 39-45-8948mWOA Coag (PPP) [Time]47.0 sHigh23.0-32.4Avon HospitalComment on above:Order Comment: Specimen Type: BLOOD SPECIMENOrdering Facility: [facility] Address:[address] [place], [place] [address]Vxqntisdf By: #### 57844-4 ####[facility] [id number] [place] [address] [facility]ENTERALLMISSION [facility] HEALTHon 96-05-6242HDVCKB HEALTHHNO ID: [id number] Author: ANGELINA HUERTAS RT(R) Service: Radiology Author [...] PATIENT PRESENTS WITH AN 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: No RADIOLOGY DEPARTMENT: General X-ray: Exam(s) Completed: Chest X-Ray PERIPHERAL IV DATA: Not applicable SIGNED BY: RT Dennis(R) ASHU DAO(R) September 01, 2024 7:08 PMNormalAvon HospitalED Triage Noteon 48-80-1407EQ Triage NoteHNO ID: [id number] Author: OBED WORKMAN III, MD Service: Emergency [...] 2 mg catheter clearance solution (CATHFLO) SIGNATURE: Mari Gonzales III DVT UPPER LTon 89-42-1062LO DVT UPPER LT* * *Final Report* * * DATE OF [...] be communicated with the ordering provider via [employer] staff message or phone message by [employer] Services within 2 business days of report finalization. --END OF FINDING-- Pyrotechnist: [employer] Transcribe Date/Time: Sep 01 2024 7:18P Dictated by : MIKE CODY MD This examination was interpreted and the report reviewed and electronically signed by: MIKE CODY MD on Sep 01 2024 7:22PM EST [id number] ACTIONABLEInvalid Interpretation CodeAv HospitalXR CHEST 2V FRONTAL/LATon 93-35-7401CM CHEST 2V FRONTAL/LAT* * *Final Report* * * DATE OF [...] placement with no evidence of acute disease. Pyrotechnist: [employer] Transcribe Date/Time: Sep 01 2024 7:38P Dictated by : TRAM CHING MD This examination was interpreted and the report reviewed and electronically signed by: TRAM CHING MD on Sep 01 2024 7:39PM EST [id number] HospitalCNPNon 00-84-2714QTBKXwjrieImmngnnxt [facility] metabolic 2000 panelon 23-31-2370Zihzz gap [Moles/Vol]12 mmol/LNormal8-15[facility] on above:Order Comment: Specimen Type: BLOOD SPECIMENOrdering Facility: [facility] Address:[address] [place], [place] [address]Performed By: #### 41006-0, , 2776-07 ####[facility] LABIA [id number] [address] [place] AMERICACalcium [Mass/Vol]9.3 mg/dL Normal8.5-10.2CHolmes [facility] on above:Order Comment: Specimen Type: BLOOD SPECIMENOrdering Facility: [facility] Address:[address] [place], [place] [address]Performed By: #### 78854-9, , 2776-07 ####[facility] [id number], [place] [address] [place] OF AMERICAChloride [Moles/Vol]100 mmol/L Rsqewt56-507CwsrponojUniversity Hospitals Health System on above:Order Comment: Specimen Type: BLOOD SPECIMENOrdering Facility: [facility] Address:[address] [place], [place] [address]Performed By: #### 04397-2, , 2776-07 ####[facility] [id number] VILLE [id number] [place] AMERICACO2 [Moles/Vol]26 mmol/LNormal 22-30[facility] on above:Order Comment: Specimen Type: BLOOD SPECIMENOrdering Facility: [facility] Address:[address] [place], [place] [address]Performed By: #### 37350-6, , 2776-07 ####[facility] [id number] VILLE [address] [place] AMERICACreatinine [Mass/Vol]0.54 mg/dL Low0.58-0.96[facility] on above:Order Comment: Specimen Type: BLOOD SPECIMENOrdering Facility: [facility] Address:[address] [place], [place] [address]Performed By: #### 61766-6, , 2776-07 ####[facility] [id number] [address] [place] AMERICACreatinine and Glomerular filtration rate.predicted panel (S/P/Bld)123 mL/min/1.73m???Normal>=60[facility] on above:Order Comment: Specimen Type: BLOOD SPECIMENOrdering Facility: [facility] Address:[address] [place], [place] [address]Result Comment: Estimated Glomerular Filtration Rate (eGFR) is calculated using the 2020 CKD-EPI creatinine equation. This equation utilizes serum creatinine, sex, and age as parameters. The creatinine assay has traceable calibration to isotope dilution-mass spectrometry. Refer to KDIGO guidelines for clinical interpretation. In patients with unstable renal function, e.g. those with acute kidney injury, the eGFR may not accurately reflect actual GFR.Performed By: #### 18563-7, , 2776-07 ####[facility] [id number] VILLE [address] [place] AMERICAGlucose [Mass/Vol]79 mg/wHMgxdrx67-81GzddgkhemUniversity Hospitals Health System on above:Order Comment: Specimen Type: BLOOD SPECIMENOrdering Facility: [facility] Address:[address] [place], [place] [address]Result Comment: The [place] Diabetes Association (ADA) provides guidance for cutoff [...] unequivocal hyperglycemia, results should be confirmed by repeattesting. In a patient with classic symptoms of hyperglycemia or hyperglycemic crisis, random plasmaglucose results greater than or equal to 200 mg/dL meet the criteria for diagnosis of diabetes.Reference: Standards of Medical Care in Diabetes 2016, [place] [employer]. Diabetes Care. 2016.39(Suppl 1).Performed By: #### 19004- 2, , 2776-07 ####[facility] [id number] [address] [place] AMERICAPotassium [Moles/Vol] 4.2 mmol/LNormal3.7-5.1CHolmes [facility] on above:Order Comment: Specimen Type: BLOOD SPECIMENOrdering Facility: [facility] Address:[address] [place], [place] [address]Performed By: #### 93182-0, , 2776-07 ####[facility] [id number][place] [address] [place] AMERICASodium [Moles/Vol]138 mmol/L Xohogt237-138HrslvuookUniversity Hospitals Health System on above:Order Comment: Specimen Type: BLOOD SPECIMENOrdering Facility: [facility] Address:[address] [place], [place] [address]Performed By: #### 68209-4, , 2776-07 ####[facility] [id number] VILLE [address] [place] AMERICAUrea nitrogen [Mass/Vol]16 mg/dL Normal7-21[facility] on above:Order Comment: Specimen Type: BLOOD SPECIMENOrdering Facility: [facility] Address:[address] [place], [place] [address]Performed By: #### 55254-9, , 2776-07 ####[facility] [id number] VILLE [address] [place] AMERICACASE MANAGEMon 95-29-5608NOYH MANAGEMNormalWood County HospitalCASE MANAGEMNormalWood County HospitalCB panel Auto (Bld)on 84-22-8737Lrvdrofyrsl distribution width (RBC) [Ratio]14.7 %Vserkc20.5-15.0[facility] on above:Order Comment: Specimen Type: BLOOD SPECIMENOrdering Facility: [facility] Address:[address] [place], [place] [address]Performed By: #### 01636- 2 ####[facility] [id number] [address] KING STREETHematocrit (Bld) [Volume fraction]25.0 %Low36.0-46.0[facility] on above:Order Comment: Specimen Type: BLOOD SPECIMENOrdering Facility: [facility] Address:[address] [place], [place] [address]Performed By: #### 79028- 2 ####[facility] [id number] 56 KING STREETHemoglobin (Bld) [Mass/Vol]7.8 g/dLLow11.5-15.5CHolmes [facility] on above:Order Comment: Specimen Type: BLOOD SPECIMENOrdering Facility: [facility] Address:[address] [place], [place] [address]Performed By: #### 56318-7 ####[facility] [id number] [place] [address] [place] AMERICAMCH (RBC) [Entitic mass]28.3 pg Bgrlqn31.0-34.0[facility] on above:Order Comment: Specimen Type: BLOOD SPECIMENOrdering Facility: [facility] Address:[address] [place], [place] [address]Performed By: #### 61791-5 ####[facility] [id number] [address]ETMCHC (RBC) [Mass/Vol]31.2 g/dL Ezrfyr54.5-36.0[facility] on above:Order Comment: Specimen Type: BLOOD SPECIMENOrdering Facility: [facility] Address:[address] [place], [place] [address]Performed By: #### 48821-1 ####[facility] [id number] [address]ETMCV (RBC) [Entitic vol]90.6 fL Jiqsrd09.0-100.0[facility] on above:Order Comment: Specimen Type: BLOOD SPECIMENOrdering Facility: [facility] Address:[address] [place], [place] [address]Performed By: #### 81027-9 ####[facility] [id number] [address]ETucleated RBC (Bld) [#/Vol] 10*3/uLNormal<0.01[facility] on above:Order Comment: Specimen Type: BLOOD SPECIMENOrdering Facility: [facility] Address:[address] [place], [place] [address]Performed By: #### 78008-3 ####[facility] [id number] [address]ETPlatelet mean volume (Bld) [Entitic vol]11.2 fLNormal9.0-12.7CHolmes County [facility] on above: Order Comment: Specimen Type: BLOOD SPECIMENOrdering Facility: [facility] Address:[address] [place], [place] [address]Performed By: #### 64078- 2 ####[facility] LABCL[facility] [id number] [address] OF AMERICAPlatelets (Bld) [#/Vol]335 10*3/bIVcrbgx402-672GphveysupUniversity Hospitals Health System on above:Order Comment: Specimen Type: BLOOD SPECIMENOrdering Facility: [facility] Address:[address] [place], [place] [address]Performed By: #### 92070-0 ####[facility] [id number] [place] [address] [place] AMERICARBC (Bld) [#/Vol]2.76 10*6/uLLow 3.90-5.20[facility] on above:Order Comment: Specimen Type: BLOOD SPECIMENOrdering Facility: [facility] Address:[address] [place], [place] [address]Performed By: #### 25957-7 ####[facility] [id number] [place] [address] [place] AMERICAWBC (Bld) [#/Vol]9.07 10*3/uLNormal3.70-11.00[facility] on above:Order Comment: Specimen Type: BLOOD SPECIMENOrdering Facility: [facility] Address:[address] [place], [place] [address]Performed By: #### 47182-2 ####[facility] [id number] [place] [address] [place] AMERICAErythrocyte distribution width (RBC) [Ratio]14.6 %Pxeqex05.5-15.0 [facility] on above:Order Comment: Specimen Type: BLOOD SPECIMENOrdering Facility: [facility] Address:[address] [place], [place] [address]Performed By: #### 48165-7 ####[facility] [id number] [place] [address] [place] AMERICAHematocrit (Bld) [Volume fraction]23.6 %Low36.0-46.0[facility] on above:Order Comment: Specimen Type: BLOOD SPECIMENOrdering Facility: [facility] Address:[address] [place], [place] [address]Performed By: #### 08571-1 ####[facility] [id number] [place] [address] [place] Hemoglobin (Bld) [Mass/Vol]7.4 g/dLLow11.5-15.5CHolmes [facility] on above:Order Comment: Specimen Type: BLOOD SPECIMENOrdering Facility: [facility] Address:[address] [place] [address] Performed By: #### 42513-7 ####[facility] [id number] [place] [address] [place] MCH (RBC) [Entitic mass]28.2 shWtkjyo52.0-34.0[facility] on above:Order Comment: Specimen Type: BLOOD SPECIMENOrdering Facility: [facility] Address:[address] [place] [address] Performed By: #### 33799-8 ####[facility] [id number] [place] [address] [place] MCHC (RBC) [Mass/Vol]31.4 g/dKVdzvnc74.5-36.0[facility] on above:Order Comment: Specimen Type: BLOOD SPECIMENOrdering Facility: [facility] Address:[address] [place] [address] Performed By: #### 29903-9 ####[facility] [id number] [place] [address] [place] MCV (RBC) [Entitic vol]90.1 pAPcfqlb21.0-100.0[facility] on above:Order Comment: Specimen Type: BLOOD SPECIMENOrdering Facility: [facility] Address:[address] [place] [address] Performed By: #### 48300-8 ####[facility] [id number] [place] [address] [place] Nucleated RBC (Bld) [#/Vol]10*3/uLNormal<0.01[facility] on above:Order Comment: Specimen Type: BLOOD SPECIMENOrdering Facility: [facility] Address:[address] [place] [address] Performed By: #### 29101-0 ####[facility] [id number] [place] [address] [place] Platelet mean volume (Bld) [Entitic vol]11.4 fLNormal9.0-12.7CHolmes [facility] on above:Order Comment: Specimen Type: BLOOD SPECIMENOrdering Facility: [facility] Address:[address] [place], [place] [address]Performed By: #### 63528-6 ####[facility] [id number] [place] [address] [place] Platelets (Bld) [#/Vol]310 10*3/oSVajbmu138-915StzlybfzhUniversity Hospitals Health System on above:Order Comment: Specimen Type: BLOOD SPECIMENOrdering Facility: [facility] Address:[address] [place] [address] Performed By: #### 93743-4 ####[facility] [id number] [place] [address] [place] RBC (Bld) [#/Vol]2.62 10*6/uLLow3.90-5.20[facility] on above:Order Comment: Specimen Type: BLOOD SPECIMENOrdering Facility: [facility] Address:[address] [place], [place] [address]Performed By: #### 64921-2 ####[facility] [id number] [place] [address] [place] AMERICAWBC (Bld) [#/Vol]7.85 10*3/uLNormal3.70-11.00[facility] HospitalComup health system on above:Order Comment: Specimen Type: BLOOD SPECIMENOrdering Facility: [facility] Address:[address] [place], [place] [address]Performed By: #### 42231-6 ####[facility] [id number] [place] [address] [place] AMERICACNDSon 32-97-2568HWIIWrwgkn Wood County HospitalMagnesium SerPl-mCncon 52-80-4890Imegezlbj [Mass/Vol] 1.8 mg/dLNormal1.7-2.3ClevelCentral Carolina HospitalComment on above:Order Comment: Specimen Type: BLOOD SPECIMENOrdering Facility: [facility] Address:[address] [place], [place] [address]Performed By: #### 33708-4, 81415-0, 2777- ####[facility] [id number] [place] [address] [place] AMERICAPT EDon 22-39-4783BR EDNormal Wood County HospitalPhosphate SerPl-mCncon 80-94-5789Vppttlttc [Mass/Vol] 4.2 mg/dLNormal2.7-4.8CMercy Health Urbana HospitalComup health system on above:Order Comment: Specimen Type: BLOOD SPECIMENOrdering Facility: [facility] Address:[address] [place], [place] [address]Performed By: #### 19500-5, 37652-4, 2777-1 ####[facility] [id number] VILLE [address] [place] AMERICABasic metabolic 2000 panelon 54-37-5270Xhpit gap [Moles/Vol]14 mmol/LNormal8-15[facility] Comment on above:Order Comment: Specimen Type: BLOOD SPECIMENOrdering Facility: [facility] Address:[address] [place] [address] Performed By: #### 93008-6, 95973-8, 2777-1, 2571-8 ####[facility] [id number] [place] [address] [place] AMERICACalcium [Mass/Vol]9.6 mg/dLNormal8.5-10.2CHolmes [facility] on above:Order Comment: Specimen Type: BLOOD SPECIMENOrdering Facility: [facility] Address:[address] [place], [place] [address]Performed By: #### 20268-3, 19713-5, 2777-1, 257-8 ####[facility] [id number] [place] [address] [place] AMERICAChloride [Moles/Vol]98 mmol/YRyyffb32-177OxcljziwwUniversity [facility]als [facility] on above:Order Comment: Specimen Type: BLOOD SPECIMENOrdering Facility: [facility] Address:[address] [place], [place] [address]Performed By: #### 70568-7, 05115-5, 2777-1, 257-8 ####[facility] [id number] [place] [address] [place] AMERICACO2 [Moles/Vol]28 mmol/LNormal 22-30[facility] on above:Order Comment: Specimen Type: BLOOD SPECIMENOrdering Facility: [facility] Address:[address] [place] [address]Syfnvlifn By: #### 55758-8, 88411-7, 2777-1, 257-8 ####[facility] [id number] [place] [address] [place] AMERICACreatinine [Mass/Vol]0.52 mg/dL Low0.58-0.96[facility] on above:Order Comment: Specimen Type: BLOOD SPECIMENOrdering Facility: [facility] Address:[address] [place], [place] [address]Performed By: #### 05064-3, 99628-9, 2777-1, 2571-8 ####[facility] [id number] [address] [address] [place] AMERICACreatinine and Glomerular filtration rate.predicted panel (S/P/Bld)124 mL/min/1.73m???Normal>=60[facility] on above:Order Comment: Specimen Type: BLOOD SPECIMENOrdering Facility: [facility] Address:[address] [place] [address]Xtetwq Comment: Estimated Glomerular Filtration Rate (eGFR) is calculated using the 2020 CKD-EPI creatinine equation. This equation utilizes serum creatinine, sex, and age as parameters. The creatinine assay has traceable calibration to isotope dilution-mass spectrometry. Refer to KDIGO guidelines for clinical interpretation. In patients with unstable renal function, e.g. those with acute kidney injury, the eGFR may not accurately reflect actual GFR.Performed By: #### 95780-7, 17488-1, 2777-, 257-8 ####[facility] [id number] [address] [address] [place] AMERICAGlucose [Mass/Vol]109 mg/dLHigh 74-99[facility] on above:Order Comment: Specimen Type: BLOOD SPECIMENOrdering Facility: [facility] Address:[address] [place] [address]Ldlscd Comment: The [place] Diabetes Association (ADA) provides guidance for cutoff [...] unequivocal hyperglycemia, results should be confirmed by repeattesting. In a patient with classic symptoms of hyperglycemia or hyperglycemic crisis, random plasmaglucose results greater than or equal to 200 mg/dL meet the criteria for diagnosis of diabetes.Reference: Standards of Medical Care in Diabetes 2016, [place] [employer]. Diabetes Care. 2016.39(Suppl 1).Performed By: #### 73329- 2, 64703-9, 2777-1, 2571-8 ####[facility]CL[facility] [id number] [place] [address] [place] Potassium [Moles/Vol]3.5 mmol/LLow3.7-5.1CHolmes [facility] on above:Order Comment: Specimen Type: BLOOD SPECIMENOrdering Facility: [facility] Address:[address] [place], [place] [address]Performed By: #### 04387-4, 12029-1, 2777-1, 2571-8 ####[facility] [id number] [place] [address] [place] Sodium [Moles/Vol]140 mmol/RSdoqyn367-084VvosnrvcaUniversity Hospitals Health System on above:Order Comment: Specimen Type: BLOOD SPECIMENOrdering Facility: [facility] Address:[address] [place], [place] [address]Performed By: #### 01815-1, 34292-3, 2777-1, 257-8 ####[facility] [id number] [place] [address] [place] Urea nitrogen [Mass/Vol]20 mg/dLNormal7-21[facility] on above:Order Comment: Specimen Type: BLOOD SPECIMENOrdering Facility: [facility] Address:[address] [place], [place] [address]Performed By: #### 73309-3, 67608-1, 277-1, 257-8 ####[facility] [id number] [place] [address] [place] CASE MANAGEMon 11-15-5005VDVH MANAGEMNormalWood County HospitalCB panel Auto (Bld)on 33-39-2876Xsuxylxrycv distribution width (RBC) [Ratio]14.6 %Normal 11.5-15.0[facility] on above:Order Comment: Specimen Type: BLOOD SPECIMENOrdering Facility: [facility] Address:[address] [place], [place] [address]Performed By: #### 19255-6 ####[facility] [id number] [place] [address] [place] AMERICAHematocrit (Bld) [Volume fraction]26.5 %Low36.0-46.0 [facility] on above:Order Comment: Specimen Type: BLOOD SPECIMENOrdering Facility: [facility] Address:[address] [place], [place] [address]Performed By: #### 42321-2 ####[facility] [id number] [place] [address] [place] AMERICAHemoglobin (Bld) [Mass/Vol]8.2 g/dLLow11.5-15.5CMercy Health [facility]rbana Hospital Comment on above:Order Comment: Specimen Type: BLOOD SPECIMENOrdering Facility: [facility] Address:[address] [place] [address] Performed By: #### 30228-0 ####[facility] [id number] [place] [address] [place] MCH (RBC) [Entitic mass]27.8 yzBlpbla08.0-34.0[facility] on above:Order Comment: Specimen Type: BLOOD SPECIMENOrdering Facility: [facility] Address:[address] [place] [address] Performed By: #### 08022-7 ####[facility] [id number] [place] [address] [place] MCHC (RBC) [Mass/Vol]30.9 g/eUEkeymw33.5-36.0[facility] on above:Order Comment: Specimen Type: BLOOD SPECIMENOrdering Facility: [facility] Address:[address] [place] [address] Performed By: #### 81859-2 ####[facility] [id number] [place] [address] [place] MCV (RBC) [Entitic vol]89.8 yFCkdnui37.0-100.0[facility] on above:Order Comment: Specimen Type: BLOOD SPECIMENOrdering Facility: [facility] Address:[address] [place] [address] Performed By: #### 15624-2 ####[facility] [id number] [place] [address] [place] Nucleated RBC (Bld) [#/Vol]10*3/uLNormal<0.01[facility] on above:Order Comment: Specimen Type: BLOOD SPECIMENOrdering Facility: [facility] Address:[address] [place] [address] Performed By: #### 16120-2 ####[facility] [id number] [place] [address] [place] Platelet mean volume (Bld) [Entitic vol]11.3 fLNormal9.0-12.7CHolmes [facility] on above:Order Comment: Specimen Type: BLOOD SPECIMENOrdering Facility: [facility] Address:[address] [place], [place] [address]Performed By: #### 53162-2 ####[facility] [id number] [place] [address] [place] Platelets (Bld) [#/Vol]333 10*3/mDWdzbkc281-672UzwdxudkcUniversity Hospitals Health System on above:Order Comment: Specimen Type: BLOOD SPECIMENOrdering Facility: [facility] Address:[address] [place] [address] Performed By: #### 58690-0 ####[facility] [id number] [place] [address] [place] RBC (Bld) [#/Vol]2.95 10*6/uLLow3.90-5.20[facility] on above:Order Comment: Specimen Type: BLOOD SPECIMENOrdering Facility: [facility] Address:[address] [place], [place] [address]Performed By: #### 50077-0 ####[facility] [id number] [place] [address] [place] AMERICAWBC (Bld) [#/Vol]9.54 10*3/uLNormal3.70-11.00[facility] on above:Order Comment: Specimen Type: BLOOD SPECIMENOrdering Facility: [facility] Address:[address] [place], [place] [address]Performed By: #### 26184-9 ####[facility] [id number] [place] [address] [place] AMERICACONSULT PROGon 96-07-1937YECZWNU PROGNormalWood County HospitalCONSULT PROGNormalWood County Hospital Magnesium SerPl-mCncon 38-23-6913Kelvgjrvq [Mass/Vol]1.9 mg/dLNormal1.7-2.3 [facility] on above:Order Comment: Specimen Type: BLOOD SPECIMENOrdering Facility: [facility] Address:[address] [place], [place] [address]Performed By: #### 88907-9, 52016-4, 2777-1, 2571-8 ####[facility] [id number] [place] [address] [place] AMERICAPT EDon 72-41-9338OF EDNormal [facility] County HospitalPhosphate SerPl-mCncon 47-90-3093Osqgvbdma [Mass/Vol] 5.2 mg/dLHigh2.7-4.8CHolmes [facility] on above:Order Comment: Specimen Type: BLOOD SPECIMENOrdering Facility: [facility] Address:[address] [place], [place] [address]Performed By: #### 16657-3, 18134-9, 2777-1, 2571-8 ####[facility] [id number] [address] [address] [place] AMERICATrigl SerPl-mCncon 88-45-2543Zpiybgyjcxea [Mass/Vol]177 mg/dLHigh<150[facility] Comment on above:Order Comment: Specimen Type: BLOOD SPECIMENOrdering Facility: [facility] Address:[address] [place] [address]Fxqnkr Comment: <150 mg/dL, Normal 150-199 mg/dL, Borderline high 200-499 mg/dL, High>499 mg/dL, Very highReference:1. National Cholesterol Education Program ATP III Guideline At-A-Glance QuickDesk Reference: National Heart, Lung, and Blood [place]. National Institutes of Health. 2001: NIHPublication No. 01-3305. Performed By: #### 76554-5, 32975-9, 2777-1, 257-8 ####[facility] [id number] [address] [address] [place] AMERICATriglyceride [Mass/Vol]on 33-60-6896PYUWJDE TIME0 hrsNormal [facility] HospitalComment on above:Order Comment: Specimen Type: BLOOD SPECIMENOrdering Facility: [facility] Address:[address] [place] [address]Snlpsrooy By: #### 36696-7, 66643-9, 2777-1, 257-8 ####[facility] [id number] [address] [address] [place] AMERICAALLIED HEALTHon 67-86-1057OJTJND HEALTHNormalCMercy Health Urbana HospitalBapaintsville arh [facility] metabolic 2000 panelon 08-28-2024 Anion gap [Moles/Vol]13 mmol/LNormal8-15[facility]Com[facility] on above:Order Comment: Specimen Type: BLOOD SPECIMENOrdering Facility: [facility] Address:[address] [place], [place] [id number] By: #### 97111-7, 1987-11, , ####[facility] LABCLIA [id number] [address] [address] [place] Calcium [Mass/Vol]9.5 mg/dLNormal8.5-10.2CHolmes [facility] on above:Order Comment: Specimen Type: BLOOD SPECIMENOrdering Facility: [facility] Address:[address] [place], [place] [address]Performed By: #### 56523-1, 1987-11, , ####[facility] [id number] [place] [id number] [place] Chloride [Moles/Vol]100 mmol/NZusumw64-128FuvdybqxlUniversity Hospitals Health System on above:Order Comment: Specimen Type: BLOOD SPECIMENOrdering Facility: [facility] Address:[address] [place], [place] [address]Performed By: #### 93899-8, 1987-11, , ####[facility] [id number] [place] [address] [place] CO2 [Moles/Vol]26 mmol/SKyhebm15-75PmwqobrfmUniversity Hospitals Health System on above: Order Comment: Specimen Type: BLOOD SPECIMENOrdering Facility: [facility] Address:[address] [place], [place] [address]Performed By: #### 71186- 2, 1987-11, , ####[facility] [id number] [place] [address] [place] Creatinine [Mass/Vol]0.46 mg/dLLow0.58-0.96[facility] on above:Order Comment: Specimen Type: BLOOD SPECIMENOrdering Facility: [facility] Address:[address] [place], [place] [address]Performed By: #### 91867-7, 1987-11, , ####[facility] [id number] [address] [place] Creatinine and Glomerular filtration rate.predicted panel (S/P/Bld)127 mL/min/1.73m???Normal>=60[facility] on above:Order Comment: Specimen Type: BLOOD SPECIMENOrdering Facility: [facility] Address:[address] [place], [place] [address]Result Comment: Estimated Glomerular Filtration Rate (eGFR) is calculated using the 2020 CKD-EPI cre atinine equation. This equation utilizes serum creatinine, sex, and age as parameters. The creatinine assay has traceable calibration to isotope dilution- mass spectrometry. Refer to KDIGO guidelines for clinical interpretation. In patients with unstable renal function, e.g. those with acute kidney injury, the eGFR may not accurately reflect actual GFR.Performed By: #### 38197-9, 1987-11, , ####[facility] [id number] [place] [address] [place] AMERICAGlucose [Mass/Vol]117 mg/lMLfys26-61VyecdnvdpUniversity Hospitals Health System on above:Order Comment: Specimen Type: BLOOD SPECIMENOrdering Facility: [facility] Address:[address] [place], [place] [address]Result Comment: The [place] Diabetes Association (ADA) provides guidance for cutoff [...] symptoms of hyperglycemia or hyperglycemic crisis, random plasmaglucose results greater than or equal to 200 mg/dL meet the criteria for diagnosis of diabetes.Reference: Standards of Medical Care in Diabetes 2016, [place] [employer]. Diabetes Care. 2016.39(Suppl 1). Performed By: #### 83650-1, 1987-11, 11146-7, ####[facility] [id number] [place] [address] [place] AMERICAPotassium [Moles/Vol]3.9 mmol/LNormal3.7-5.1CHolmes [facility] on above:Order Comment: Specimen Type: BLOOD SPECIMENOrdering Facility: [facility] Address:[address] [place], [place] [address]Performed By: #### 11915-5, 1987-11, , ####[facility] [id number] [place] [address] [place] AMERICASodium [Moles/Vol]139 mmol/FXxrlhl790-439TyfrzseryUniversity Hospitals Health System on above:Order Comment: Specimen Type: BLOOD SPECIMENOrdering Facility: [facility] Address:[address] [place], [place] [address]Performed By: #### 48192-6, 1987-11, , ####[facility]ITALIA [id number] [address] STATES OF AMERICAUrea nitrogen [Mass/Vol]20 mg/dL Normal7-21[facility] on above:Order Comment: Specimen Type: BLOOD SPECIMENOrdering Facility: [facility] Address:[address] [place], [place] [address]Performed By: #### 62519-8, 1987-11, , ####[facility] [id number] [place] [address] [place] AMERICACBC panel Auto (Bld)on 13-80-2944Ivksodoqwss distribution width (RBC) [Ratio]14.6 %Rnkfol26.5-15.0 [facility] on above:Order Comment: Specimen Type: BLOOD SPECIMENOrdering Facility: [facility] Address:[address] [place], [place] [address]Performed By: #### 34804-9 ####[facility] [id number] [place] [address] [place] [facility] HOSPITALHematocrit (Bld) [Volume fraction]25.5 %Low36.0-46.0[facility] on above:Order Comment: Specimen Type: BLOOD SPECIMENOrdering Facility: [facility] Address:[address] [place], [place] [address]Performed By: #### 46085-2 ####[facility] [id number] [place] [address] [place] Hemoglobin (Bld) [Mass/Vol]8.3 g/dLLow11.5-15.5CHolmes [facility] on above:Order Comment: Specimen Type: BLOOD SPECIMENOrdering Facility: [facility] Address:[address] [place] [address] Performed By: #### 79048-6 ####[facility] [id number] [place] [address] [place] MCH (RBC) [Entitic mass]29.0 lmYhtrhb38.0-34.0[facility] on above:Order Comment: Specimen Type: BLOOD SPECIMENOrdering Facility: [facility] Address:[address] [place] [address] Performed By: #### 25416-0 ####[facility] [id number] [place] [address] [place] MCHC (RBC) [Mass/Vol]32.5 g/iGVtnlsm49.5-36.0[facility] on above:Order Comment: Specimen Type: BLOOD SPECIMENOrdering Facility: [facility] Address:[address] [place] [address] Performed By: #### 24788-0 ####[facility] [id number] [place] [address] [place] MCV (RBC) [Entitic vol]89.2 zFTroucg31.0-100.0[facility] on above:Order Comment: Specimen Type: BLOOD SPECIMENOrdering Facility: [facility] Address:[address] [place] [address] Performed By: #### 58277-6 ####[facility] [id number] [place] [address] [place] Nucleated RBC (Bld) [#/Vol]10*3/uLNormal<0.01[facility] on above:Order Comment: Specimen Type: BLOOD SPECIMENOrdering Facility: [facility] Address:[address] [place] [address] Performed By: #### 66146-5 ####[facility] [id number] [place] [address] [place] Platelet mean volume (Bld) [Entitic vol]10.9 fLNormal9.0-12.7CHolmes [facility] on above:Order Comment: Specimen Type: BLOOD SPECIMENOrdering Facility: [facility] Address:[address] [place], [place] [address]Performed By: #### 53165-6 ####[facility] [id number] [place] [address] [place] Platelets (Bld) [#/Vol]290 10*3/nDMxcphz140-736XhvznpsybUniversity Hospitals Health System on above:Order Comment: Specimen Type: BLOOD SPECIMENOrdering Facility: [facility] Address:[address] [place] [address] Performed By: #### 51873-9 ####[facility] [id number] [place] [address] [place] RBC (Bld) [#/Vol]2.86 10*6/uLLow3.90-5.20[facility] on above:Order Comment: Specimen Type: BLOOD SPECIMENOrdering Facility: [facility] Address:[address] [place], [place] [address]Performed By: #### 27207-6 ####[facility] [id number] [place] [address] [place] AMERICAWBC (Bld) [#/Vol]10.52 10*3/uLNormal3.70-11.00[facility] on above:Order Comment: Specimen Type: BLOOD SPECIMENOrdering Facility: [facility] Address:[address] [place], [place] [address]Performed By: #### 44927- 2 ####[facility]IA [id number] [place] [address] [place] AMERICACONSULTon 89-92-4105QZORSQIUnxvpp Wood County HospitalCONSULT PROGon 87-72-6877JAOYTPR PROGNormalWood County HospitalCRP SerPl-mCncon 34-01-1566HCW [Mass/Vol]6.2 mg/dLHigh<0.9 [facility] on above:Order Comment: Specimen Type: BLOOD SPECIMENOrdering Facility: [facility] Address:[address] [place], [place] [address]Performed By: #### 88098-5, 1987-11, 93476-0, ####[facility] [id number] [place] [address] [place] AMERICAHepatic function 2000 panelon 26-35-3908Wgbwcfh [Mass/Vol]3.2 g/dLLow3.9-4.9CHolmes [facility] on above:Order Comment: Specimen Type: BLOOD SPECIMENOrdering Facility: [facility] Address:[address] [place] [address] Performed By: #### 65968-2, 1987-11, 26150-2, ####[facility] [id number] [address] [address] [place] AMERICAALP [Catalytic activity/Vol]174 U/PKsac91-073ObbstzfyiUniversity Hospitals Health System on above:Order Comment: Specimen Type: BLOOD SPECIMENOrdering Facility: [facility] Address:[address] [place], [place] [address]Performed By: #### 83223-6, 1987-11, , ####[facility] [id number] [address] [address] [place] AMERICAALT [Catalytic activity/Vol]30 U/LNormal7-38[facility] on above:Order Comment: Specimen Type: BLOOD SPECIMENOrdering Facility: [facility] Address:[address] [place], [place] [address]Performed By: #### 46092-1, 1987-11, , ####[facility] [id number] [place] [address] [place] AMERICAAST [Catalytic activity/Vol]27 U/EHjnohl61-15NubmqhgqxUniversity Hospitals Health System on above:Order Comment: Specimen Type: BLOOD SPECIMENOrdering Facility: [facility] Address:[address] [place], [place] [address]Performed By: #### 66174-8, 1987-11, , ####[facility] [id number] [place] [address] [place] AMERICABilirubin [Mass/Vol] 0.2 mg/dLNormal0.2-1.3CHolmes [facility] on above:Order Comment: Specimen Type: BLOOD SPECIMENOrdering Facility: [facility] Address:[address] [place], [place] [address]Performed By: #### 14014-6, 1987-11, , ####[facility] [id number] [place] [address] [place]ICABilirubin.conjugated [Mass/Vol]0.1 mg/dLNormal<0.3CHol[facility] on above:Order Comment: Specimen Type: BLOOD SPECIMENOrdering Facility: [facility] Address:[address] [place], [place] [address]Performed By: #### 25474- 2, 1987-11, , ####[facility] [id number] [place] [address] [place] Protein [Mass/Vol]6.7 g/dLNormal6.3-8.0[facility] on above:Order Comment: Specimen Type: BLOOD SPECIMENOrdering Facility: [facility] Address:[address] [place], [place] [address]Performed By: #### 11703-0, 1987-11, , ####[facility] [id number] [place] [address] [place] Magnesium SerPl-mCncon 98-25-7908Syjqhveyb [Mass/Vol]2.4 mg/dLHigh1.7-2.3 [facility] on above:Order Comment: Specimen Type: BLOOD SPECIMENOrdering Facility: [facility] Address:[address] [place], [place] [address]Performed By: #### 43141-1, 1987-11, , ####[facility] [id number] [place] [address] [place] AMERICANURSING PROGon 09-00-8678DBPKIFN PROGNormalWood County HospitalPT EDon 05-92-2402JN EDNormalCMercy Health Urbana HospitalPhosphate SerPl-mCncon 27-07-5971Raxfbivyt [Mass/Vol]4.5 mg/dL Normal2.7-4.8CHolmes [facility] on above:Order Comment: Specimen Type: BLOOD SPECIMENOrdering Facility: [facility] Address:[address] [place], [place] [address]Performed By: #### 2777-1 ####[facility] [id number] [address] [address] [place] AMERICATHERAPY NTon 53-52-7978OBFXPAR NTNormalCMercy Health Urbana HospitalUS ARM VEIN DVT UNL VAS LABon 05-18-3299PQ ARM VEIN DVT UNL VAS LAB NormalWood County HospitalALLIED HEALTHon 10-41-9455YHMJVQ HEALTHNormal Wood County HospitalBapaintsville arh hospital metabolic 2000 panelon 37-14-2492Nksge gap [Moles/Vol]9 mmol/LNormal8-15[facility] on above:Order Comment: Specimen Type: BLOOD SPECIMENOrdering Facility: [facility] Address:[address] [place], [place] [address]Performed By: #### 27961- 2, 27701-02, ####[facility] [id number], [place] [address] [place]ICACalcium [Mass/Vol]9.4 mg/dLNormal8.5-10.2CHolmes [facility] on above:Order Comment: Specimen Type: BLOOD SPECIMENOrdering Facility: [facility] Address:[address] [place], [place] [address]Performed By: #### 88741-7, 27701-02, ####[facility] [id number] [id number] [place] AMERICAChloride [Moles/Vol]100 mmol/L Vwfbuq19-643XxhpsvxkgUniversity Hospitals Health System on above:Order Comment: Specimen Type: BLOOD SPECIMENOrdering Facility: [facility] Address:[address] [place], [place] [address]Performed By: #### 13043-6, 27701-02, ####[facility] [id number], [place] [address] [place]ICACO2 [Moles/Vol]27 mmol/LNormal 22-30[facility] on above:Order Comment: Specimen Type: BLOOD SPECIMENOrdering Facility: [facility] Address:[address] [place], [place] [address]Performed By: #### 68269-6, 27701-02, ####[facility] [id number], [place] [address] [place]ICACreatinine [Mass/Vol]0.45 mg/dL Low0.58-0.96[facility] on above:Order Comment: Specimen Type: BLOOD SPECIMENOrdering Facility: [facility] Address:[address] [place], [place] [address]Performed By: #### 28366-8, 2776-07, ####[facility] [id number], [place] [address] [place]ICACreatinine and Glomerular filtration rate.predicted panel (S/P/Bld)128 mL/min/1.73m???Normal>=60[facility] on above:Order Comment: Specimen Type: BLOOD SPECIMENOrdering Facility: [facility] Address:[address] [place], [place] [address]Result Comment: Estimated Glomerular Filtration Rate (eGFR) is calculated using the 2020 CKD-EPI creatinine equation. This equation utilizes serum creatinine, sex, and age as parameters. The creatinine assay has traceable calibration to isotope dilution-mass spectrometry. Refer to KDIGO guidelines for clinical interpretation. In patients with unstable renal function, e.g. those with acute kidney injury, the eGFR may not accurately reflect actual GFR.Performed By: #### 15699-5, 2776-07, ####[facility] [id number] VIL[place] [address] [place] AMERICAGlucose [Mass/Vol]118 mg/pQQsqo35-03EiaqifnpxUniversity [facility] on above:Order Comment: Specimen Type: BLOOD SPECIMENOrdering Facility: [facility] Address:[address] [place], [place] [id number] Comment: The [place] Diabetes Association (ADA) provides guidance for cutoff [...] unequivocal hyperglycemia, results should be confirmed by repeattesting. In a patient with classic symptoms of hyperglycemia or hyperglycemic crisis, random plasmaglucose results greater than or equal to 200 mg/dL meet the criteria for diagnosis of diabetes.Reference: Standards of Medical Care in Diabetes 2016, [place] [employer]. Diabetes Care. 2016.39(Suppl 1).Performed By: #### 26047- 2, 2777, ####[facility] [id number], [place] [address] [place]ICAPotassium [Moles/Vol] 4.6 mmol/LNormal3.7-5.1CHolmes [facility] on above:Order Comment: Specimen Type: BLOOD SPECIMENOrdering Facility: [facility] Address:[address] [place], [place] [address]Performed By: #### 54243-3, 27701-02, ####[facility] [id number] VILLE [address] [place] AMERICASodium [Moles/Vol]136 mmol/L Yffkbq118-695ZtxdildfzUniversity Hospitals Health System on above:Order Comment: Specimen Type: BLOOD SPECIMENOrdering Facility: [facility] Address:[address] [place], [place] [address]Performed By: #### 95562-2, 2776-07, ####[facility] [id number] [place] [id number] [place] AMERICAUrea nitrogen [Mass/Vol]17 mg/dL Normal7-21[facility] on above:Order Comment: Specimen Type: BLOOD SPECIMENOrdering Facility: [facility] Address:[address] [place], [place] [address]Performed By: #### 47766-2, 2777-1, 30642-6 ####[facility] [id number] [address] OF [facility] VALLEY HOSPITALCBC panel Auto (Bld)on 08-27-2024 Erythrocyte distribution width (RBC) [Ratio]14.5 %Awovyd68.5-15.0[facility] on above:Order Comment: Specimen Type: BLOOD SPECIMENOrdering Facility: [facility] Address:[address] [place], [place] [address]Performed By: #### 75943-8 ####[facility] [id number] [address] STATES OF [facility] VALLEY HOSPITALHematocrit (Bld) [Volume fraction]25.2 %Low36.0-46.0[facility] on above:Order Comment: Specimen Type: BLOOD SPECIMENOrdering Facility: [facility] Address:[address] [place], [place] [address]Performed By: #### 33337-4 ####[facility] [id number] [address] STATES OF [facility] Hemoglobin (Bld) [Mass/Vol]8.0 g/dLLow11.5-15.5CHolmes [facility] on above:Order Comment: Specimen Type: BLOOD SPECIMENOrdering Facility: [facility] Address:[address] [place] [address] Performed By: #### 87125-1 ####[facility] [id number] [place] [address] [place] MCH (RBC) [Entitic mass]28.5 sdAphqcx16.0-34.0[facility] on above:Order Comment: Specimen Type: BLOOD SPECIMENOrdering Facility: [facility] Address:[address] [place] [address] Performed By: #### 58368-5 ####[facility] [id number] [place] [address] [place] MCHC (RBC) [Mass/Vol]31.7 g/cZDzblge94.5-36.0[facility] on above:Order Comment: Specimen Type: BLOOD SPECIMENOrdering Facility: [facility] Address:[address] [place] [address] Performed By: #### 89157-2 ####[facility] [id number] [place] [address] [place] MCV (RBC) [Entitic vol]89.7 gFDzupwe49.0-100.0[facility] on above:Order Comment: Specimen Type: BLOOD SPECIMENOrdering Facility: [facility] Address:[address] [place] [address] Performed By: #### 86006-9 ####[facility] [id number] [place] [address] [place] Nucleated RBC (Bld) [#/Vol]10*3/uLNormal<0.01[facility] on above:Order Comment: Specimen Type: BLOOD SPECIMENOrdering Facility: [facility] Address:[address] [place] [address] Performed By: #### 97445-2 ####[facility] [id number] [place] [address] [place] Platelet mean volume (Bld) [Entitic vol]11.0 fLNormal9.0-12.7CHolmes [facility] on above:Order Comment: Specimen Type: BLOOD SPECIMENOrdering Facility: [facility] Address:[address] [place], [place] [address]Performed By: #### 43432-2 ####[facility] [id number] [place] [address] [place] Platelets (Bld) [#/Vol]298 10*3/qLGmxzhj423-436MyirwrlaiUniversity Hospitals Health System on above:Order Comment: Specimen Type: BLOOD SPECIMENOrdering Facility: [facility] Address:[address] [place] [address] Performed By: #### 38052-6 ####[facility] [id number] [place] [address] [place] RBC (Bld) [#/Vol]2.81 10*6/uLLow3.90-5.20[facility] on above:Order Comment: Specimen Type: BLOOD SPECIMENOrdering Facility: [facility] Address:[address] [place], [place] [address]Performed By: #### 77302-2 ####[facility] [id number] [place] [address] [place] AMERICAWBC (Bld) [#/Vol]14.02 10*3/uLHigh3.70-11.00[facility] on above:Order Comment: Specimen Type: BLOOD SPECIMENOrdering Facility: [facility] Address:[address] [place], [place] [address]Performed By: #### 10118-8 ####[facility] [id number] [place] [address] [place] AMERICACONSULT PROGon 76-74-6613QTOFTCJ PROGNormalWood County HospitalMagnesium SerPl-mCncon 63-63-7488Cxpygevvs [Mass/Vol]2.2 mg/dLNormal1.7-2.3CHolmes [facility] on above:Order Comment: Specimen Type: BLOOD SPECIMENOrdering Facility: [facility] Address:[address] [place], [place] [address]Performed By: #### 69793- 2, 277-1, ####[facility] [id number] [address] [address] [place] AMERICAPhosphate SerPl-mCnc on 08-56-9298Fmtphjlnu [Mass/Vol]5.1 mg/dLHigh2.7-4.8ClevelCentral Carolina Hospital Comment on above:Order Comment: Specimen Type: BLOOD SPECIMENOrdering Facility: [facility] Address:[address] [place], [place] [address] Performed By: #### 25638-9, 277-1, ####[facility] [id number] VILLE [id number] [place] AMERICABasic metabolic 2000 panelon 75-90-0866Gmvyw gap [Moles/Vol]9 mmol/L Normal8-15Wood County HospitalComment on above:Order Comment: Specimen Type: BLOOD SPECIMENOrdering Facility: [facility] Address:[address] [place], [place] [address]Performed By: #### 35750-3, 02749-8, 2776-07 ####[facility] [id number] VIL[place] [address] [place] AMERICACalcium [Mass/Vol]9.4 mg/dLNormal 8.5-10.2ClevelCentral Carolina HospitalComment on above:Order Comment: Specimen Type: BLOOD SPECIMENOrdering Facility: [facility] Address:[address] [place] [address]Xzxpbjqde By: #### 61095-3, 39602-3, 2776-07 ####[facility] [id number] VILLE [address] [place] AMERICAChloride [Moles/Vol]103 mmol/L Kzbztg43-971EpipmfqptWood County HospitalComment on above:Order Comment: Specimen Type: BLOOD SPECIMENOrdering Facility: [facility] Address:[address] [place], [place] [address]Performed By: #### 96454-7, , 2776-07 ####[facility] [id number], [place] [address] [place] AMERICACO2 [Moles/Vol]25 mmol/LNormal 22-30[facility] on above:Order Comment: Specimen Type: BLOOD SPECIMENOrdering Facility: [facility] Address:[address] [place], [place] [address]Performed By: #### 37019-6, , 2776-07 ####[facility] [id number], [place] [address] [place] AMERICACreatinine [Mass/Vol]0.45 mg/dL Low0.58-0.96[facility] on above:Order Comment: Specimen Type: BLOOD SPECIMENOrdering Facility: [facility] Address:[address] [place], [place] [address]Performed By: #### 83767-4, , 2776-07 ####[facility] LABBRIGHTL[facility] [id number], [place] [address] [place] AMERICACreatinine and Glomerular filtration rate.predicted panel (S/P/Bld)128 mL/min/1.73m???Normal>=60[facility] System on above:Order Comment: Specimen Type: BLOOD SPECIMENOrdering Facility: [facility] Address:[address] [place], [place] [address]Result Comment: Estimated Glomerular Filtration Rate (eGFR) is calculated using the 2020 CKD-EPI creatinine equation. This equation utilizes serum creatinine, sex, and age as parameters. The creatinine assay has traceable calibration to isotope dilution-mass spectrometry. Refer to KDIGO guidelines for clinical interpretation. In patients with unstable renal function, e.g. those with acute kidney injury, the eGFR may not accurately reflect actual GFR.Performed By: #### 11549-3, , 2776-07 ####[facility] [id number], [place] [address] [place] AMERICAGlucose [Mass/Vol]141 mg/cWAzct69-93KnjmcmgefUniversity Hospitals Health System on above:Order Comment: Specimen Type: BLOOD SPECIMENOrdering Facility: [facility] Address:[address] [place], [place] [address]Result Comment: The [place] Diabetes Association (ADA) provides guidance for cutoff [...] unequivocal hyperglycemia, results should be confirmed by repeattesting. In a patient with classic symptoms of hyperglycemia or hyperglycemic crisis, random plasmaglucose results greater than or equal to 200 mg/dL meet the criteria for diagnosis of diabetes.Reference: Standards of Medical Care in Diabetes 2016, [place] [employer] Association. Diabetes Care. 2016.39(Suppl 1).Performed By: #### 33207- 2, , 2776-07 ####[facility] [id number], [place] [address] [place] AMERICAPotassium [Moles/Vol] 4.2 mmol/LNormal3.7-5.1CHolmes [facility] on above:Order Comment: Specimen Type: BLOOD SPECIMENOrdering Facility: [facility] Address:[address] [place], [place] [address]Performed By: #### 55289-1, , 2776-07 ####[facility] [id number] VIL[place] [address] [place] AMERICASodium [Moles/Vol]137 mmol/L Ccjekj484-149QokbjiyvdUniversity Hospitals Health System on above:Order Comment: Specimen Type: BLOOD SPECIMENOrdering Facility: [facility] Address:[address] [place], [place] [address]Performed By: #### 79613-9, , 2776-07 ####[facility] [id number], [place] [address] [place] AMERICAUrea nitrogen [Mass/Vol]11 mg/dL Normal7-21[facility] on above:Order Comment: Specimen Type: BLOOD SPECIMENOrdering Facility: [facility] Address:[address] [place], [place] [address]Performed By: #### 14335-9, 05537-9, 2777-1 ####[facility] LAB[facility] [id number] OF [facility] HOSPITALCBC panel Auto (Bld)on 08-26-2024 Erythrocyte distribution width (RBC) [Ratio]14.3 %Azjstl51.5-15.0[facility] on above:Order Comment: Specimen Type: BLOOD SPECIMENOrdering Facility: [facility] Address:[address] [place], [place] [address]Performed By: #### 25542-2 ####[facility] [id number] [address] STATES [facility]'S HOSPITALHematocrit (Bld) [Volume fraction]23.6 %Low36.0-46.0[facility] on above:Order Comment: Specimen Type: BLOOD SPECIMENOrdering Facility: [facility] Address:[address] [place], [place] [address]Performed By: #### 37962-9 ####[facility] [id number] [address] STATES OF [facility] Hemoglobin (Bld) [Mass/Vol]7.4 g/dLLow11.5-15.5CHolmes [facility] on above:Order Comment: Specimen Type: BLOOD SPECIMENOrdering Facility: [facility] Address:[address] [place] [address] Performed By: #### 11575-2 ####[facility] [id number] [address] AVENUEDESK [place]88GRHSFRMNW, [place] [address] [place] MCH (RBC) [Entitic mass]28.0 fnUaydpj09.0-34.0[facility] on above:Order Comment: Specimen Type: BLOOD SPECIMENOrdering Facility: [facility] Address:[address] [place] [address] Performed By: #### 53069-3 ####[facility] [id number] [place] [address] [place] MCHC (RBC) [Mass/Vol]31.4 g/aSZvtrxd79.5-36.0[facility] on above:Order Comment: Specimen Type: BLOOD SPECIMENOrdering Facility: [facility] Address:[address] [place] [address] Performed By: #### 96013-3 ####[facility] [id number] [place] [address] [place] MCV (RBC) [Entitic vol]89.4 cLQjiagj20.0-100.0[facility] on above:Order Comment: Specimen Type: BLOOD SPECIMENOrdering Facility: [facility] Address:[address] [place] [address] Performed By: #### 86449-9 ####[facility] [id number] [place] [address] [place] Nucleated RBC (Bld) [#/Vol]10*3/uLNormal<0.01[facility] on above:Order Comment: Specimen Type: BLOOD SPECIMENOrdering Facility: [facility] Address:[address] [place] [address] Performed By: #### 53495-4 ####[facility] [id number] [place] [address] [place] Platelet mean volume (Bld) [Entitic vol]10.6 fLNormal9.0-12.7CHolmes [facility] on above:Order Comment: Specimen Type: BLOOD SPECIMENOrdering Facility: [facility] Address:[address] [place], [place] [address]Performed By: #### 86216-5 ####[facility] [id number] [place] [address] [place] Platelets (Bld) [#/Vol]278 10*3/mWHswubp588-705QezmnwvvcUniversity Hospitals Health System on above:Order Comment: Specimen Type: BLOOD SPECIMENOrdering Facility: [facility] Address:[address] [place] [address] Performed By: #### 47730-4 ####[facility] [id number] [place] [address] [place] RBC (Bld) [#/Vol]2.64 10*6/uLLow3.90-5.20[facility] on above:Order Comment: Specimen Type: BLOOD SPECIMENOrdering Facility: [facility] Address:[address] [place], [place] [address]Performed By: #### 80101-7 ####[facility] [id number] [place] [address] [place] AMERICAWBC (Bld) [#/Vol]10.75 10*3/uLNormal3.70-11.00[facility] on above:Order Comment: Specimen Type: BLOOD SPECIMENOrdering Facility: [facility] Address:[address] [place], [place] [address]Performed By: #### 36760- 2 ####[facility] [id number] [place] [address] [place] AMERICACONSULT PROGon 22-14-4773PDVXNSI PROGNormalWood County HospitalMagnesium SerPl-mCncon 00-55-0398Idoknhtir [Mass/Vol]2.2 mg/dLNormal1.7-2.3CHolmes [facility] on above:Order Comment: Specimen Type: BLOOD SPECIMENOrdering Facility: [facility] Address:[address] [place] [address] [place] [id number] By: #### 56633- 2, , 2776-07 ####[facility] [id number] [place] [id number] [place] OF AMERICANUTRITIONon 85-48-7482EZBWACMKFPljernYigmwxepz Clinic ClevelandPhosphate SerPl-mCncon 41-21-0389Hizhlxmqt [Mass/Vol]5.1 mg/dLHigh2.7-4.8CMercy Health Urbana Hospital Comment on above:Order Comment: Specimen Type: BLOOD SPECIMENOrdering Facility: [facility] Address:[address] [place] [address] Performed By: #### 51147-9, , 2776-07 ####[facility] [id number] [address] [place] AMERICABacteria Bld Culton 58-48-3724Hcouguwd identified Cx Nom (Bld)CULTURE, BLOOD: No growth 5 days GRAM STAIN: This blood culture had less than the recommended 8 ml per bottle, which could decrease the sensitivity of the test.NormalUniversity Hospitals Health System on above:Performed By: #### 600-7 ####[facility] [id number] [place] [address] [place] Basic metabolic 2000 panelon 36-57-0220Quihk gap [Moles/Vol]11 mmol/LNormal8-15 [facility] on above:Order Comment: Specimen Type: BLOOD SPECIMENOrdering Facility: [facility] Address:[address] [place], [place] [address], [place] [address]Performed By: #### 73733-4, , 2776-07 ####[facility] [id number] [place] [id number] [place] AMERICACalcium [Mass/Vol]8.9 mg/dLNormal8.5-10.2CHolmes [facility] on above:Order Comment: Specimen Type: BLOOD SPECIMENOrdering Facility: [facility] Address:[address] [place], [place] [address]Performed By: #### 52778-0, , 2776-07 ####[facility] [id number] [address] [place] AMERICAChloride [Moles/Vol]104 mmol/BJeqckd98-900 [facility] on above:Order Comment: Specimen Type: BLOOD SPECIMENOrdering Facility: [facility] Address:[address] [place], [place] [address]Performed By: #### 00744-8, , 2776-07 ####[facility] [id number], [place] [address] [place] AMERICACO2 [Moles/Vol]24 mmol/HJgbwet26-53XnqdmpgzvUniversity Hospitals Health System on above:Order Comment: Specimen Type: BLOOD SPECIMENOrdering Facility: [facility] Address:[address] [place], [place] [address]Performed By: #### 80197-8, , 2776-07 ####[facility] [id number], [place] [address] [place] AMERICACreatinine [Mass/Vol]0.43 mg/dLLow0.58-0.96 [facility] on above:Order Comment: Specimen Type: BLOOD SPECIMENOrdering Facility: [facility] Address:[address] [place], [place] [address]Performed By: #### 17329-5, , 2776-07 ####[facility] [id number] [place] [id number] [place] AMERICACreatinine and Glomerular filtration rate.predicted panel (S/P/Bld)129 mL/min/1.73m???Normal>=60[facility] on above:Order Comment: Specimen Type: BLOOD SPECIMENOrdering Facility: [facility] Address:[address] [place] [address] Comment: Estimated Glomerular Filtration Rate (eGFR) is calculated using the 2020 CKD-EPI creatinine equation. This equation utilizes serum creatinine, sex, and age as parameters. The creatinine assay has traceable calibration to isotope dilution-mass spectrometry. Refer to KDIGO guidelines for clinical interpretation. In patients with unstable renal function, e.g. those with acute kidney injury, the eGFR may not accurately reflect actual GFR. Performed By: #### 06670-0, , 2776-07 ####[facility] [id number] [address] [place] AMERICAGlucose [Mass/Vol]88 mg/eFCffwbg33-69FgrnsvsrwUniversity Hospitals Health System on above:Order Comment: Specimen Type: BLOOD SPECIMENOrdering Facility: [facility] Address:[address] [place], [place] [address] [id number] Comment: The [place] Diabetes Association (ADA) provides guidance for cutoff [...] unequivocal hyperglycemia, results should be confirmed by repeattesting. In a patient with classic symptoms of hyperglycemia or hyperglycemic crisis, random plasmaglucose results greater than or equal to 200 mg/dL meet the criteria for diagnosis of diabetes.Reference: Standards of Medical Care in Diabetes 2016, [place] [employer]. Diabetes Care. 2016.39(Suppl 1).Performed By: #### 78534-0, , 2776-07 ####[facility] [id number] [address] [place] AMERICAPotassium [Moles/Vol]5.2 mmol/LHigh3.7-5.1 [facility] on above:Order Comment: Specimen Type: BLOOD SPECIMENOrdering Facility: [facility] Address:[address] [place], [place] [address]Performed By: #### 60849-0, 07927-3, 2776-07 ####[facility] [id number], [place] [address] [place] AMERICASodium [Moles/Vol]139 mmol/EIjyxqa503-882UpnuspamhWood County HospitalComment on above:Order Comment: Specimen Type: BLOOD SPECIMENOrdering Facility: [facility] Address:[address] [place], [place] [address]Performed By: #### 61602-7, , 2776-07 ####[facility] [id number], [place] [address] [place] AMERICAUrea nitrogen [Mass/Vol]15 mg/dLNormal7- Wood County HospitalComment on above:Order Comment: Specimen Type: BLOOD SPECIMENOrdering Facility: [facility] Address:[address] [place], [place] [address]Performed By: #### 89948-3, , 2776-07 ####[facility] [id number], [place] [address] [place] AMERICACASE MANAGEMon 62-47-5988LNDK MANAGEMNormal Wood County HospitalCB panel Auto (Bld)on 07-64-7041Nwmsrxtclyy distribution width (RBC) [Ratio]14.6 %Gqewdu14.5-15.0[facility] Comment on above:Order Comment: Specimen Type: BLOOD SPECIMENOrdering Facility: [facility] Address:[address] [place] [address] Performed By: #### 85481-8 ####[facility] [id number] [place] [address] [place] Hematocrit (Bld) [Volume fraction]23.3 %Low36.0-46.0[facility] Comment on above:Order Comment: Specimen Type: BLOOD SPECIMENOrdering Facility: [facility] Address:[address] [place] [address] Performed By: #### 83975-4 ####[facility] [id number] [place] [address] [place] Hemoglobin (Bld) [Mass/Vol]7.3 g/dLLow11.5-15.5CHolmes [facility] on above:Order Comment: Specimen Type: BLOOD SPECIMENOrdering Facility: [facility] Address:[address] [place] [address] Performed By: #### 33799-7 ####[facility] [id number] [place] [address] [place] MCH (RBC) [Entitic mass]30.0 ofBtrezq80.0-34.0[facility] on above:Order Comment: Specimen Type: BLOOD SPECIMENOrdering Facility: [facility] Address:[address] [place] [address] Performed By: #### 53531-4 ####[facility] [id number] [place] [address] [place] MCHC (RBC) [Mass/Vol]31.3 g/eCFlgkvn80.5-36.0[facility] on above:Order Comment: Specimen Type: BLOOD SPECIMENOrdering Facility: [facility] Address:[address] [place] [address] Performed By: #### 20170-4 ####[facility] [id number] [place] [address] [place] MCV (RBC) [Entitic vol]95.9 nCRazxkc23.0-100.0[facility] on above:Order Comment: Specimen Type: BLOOD SPECIMENOrdering Facility: [facility] Address:[address] [place] [address] Performed By: #### 97905-8 ####[facility] [id number] [place] [address] [place] Nucleated RBC (Bld) [#/Vol]0.06 10*3/uLHigh<0.01[facility] Comment on above:Order Comment: Specimen Type: BLOOD SPECIMENOrdering Facility: [facility] Address:[address] [place] [address] Performed By: #### 33413-6 ####[facility] [id number] [place] [address] [place] Platelet mean volume (Bld) [Entitic vol]11.9 fLNormal9.0-12.7CHolmes [facility] on above:Order Comment: Specimen Type: BLOOD SPECIMENOrdering Facility: [facility] Address:[address] [place], [place] [address]Performed By: #### 97420-5 ####[facility] [id number] [place] [address] [place] Platelets (Bld) [#/Vol]264 10*3/xAZxyviy179-281TdywmkejcWood County HospitalComment on above:Order Comment: Specimen Type: BLOOD SPECIMENOrdering Facility: [facility] Address:[address] [place] [address] Performed By: #### 99194-1 ####[facility] [id number] [place] [address] [place] RBC (Bld) [#/Vol]2.43 10*6/uLLow3.90-5.20[facility] on above:Order Comment: Specimen Type: BLOOD SPECIMENOrdering Facility: [facility] Address:[address] [place], [place] [address]Performed By: #### 42273-0 ####[facility] [id number] [place] [address] [place] AMERICAWBC (Bld) [#/Vol]11.52 10*3/uLHigh3.70-11.00[facility] HospitalComment on above:Order Comment: Specimen Type: BLOOD SPECIMENOrdering Facility: [facility] Address:[address] [place], [place] [address]Result Comment: No clot detected.Results checked and verified.Performed By: #### 64243-1 ####[facility] [id number] [place] [address] [place] AMERICACONSULT PROGon 37-24-9079KBTQCSU PROGNormal [facility] County HospitalMagnesium SerPl-mCncon 87-73-6575Motnjaxnf [Mass/Vol] 2.4 mg/dLHigh1.7-2.3CMercy Health Urbana HospitalComment on above:Order Comment: Specimen Type: BLOOD SPECIMENOrdering Facility: [facility] Address:[address] [place], [place] [address]Performed By: #### 92301-3, 63129-1, 2777-1 ####[facility] [id number], [place] [address] [place] AMERICAPhosphate SerPl-mCncon 28-44-4566Ctxmyweey [Mass/Vol]4.7 mg/dLNormal2.7-4.8CMercy Health Urbana Hospital Comment on above:Order Comment: Specimen Type: BLOOD SPECIMENOrdering Facility: [facility] Address:[address] [place] [address] Performed By: #### 22222-5, 02816-6, 2777-1 ####[facility] [id number], [place] [address] [place] AMERICATHERAPY NTon 04-43-4324KMKMSSV NTNormalCleveland Adventhealth HendersonvilleTHERAPY NTNormalCMercy Health Urbana HospitalALLIED HEALTHon 07-16-7100PROLMY HEALTHNormal [facility] County HospitalBasic metabolic 2000 panelon 18-53-3119Plyvs gap [Moles/Vol]9 mmol/LNormal8-15[facility] on above:Order Comment: Specimen Type: BLOOD SPECIMENOrdering Facility: [facility] Address:[address] [place], [place] [address]Performed By: #### 11534- 2, , 2776-07 ####[facility] [id number] [address] [place] AMERICACalcium [Mass/Vol]9.0 mg/dLNormal8.5-10.2CHolmes [facility] on above:Order Comment: Specimen Type: BLOOD SPECIMENOrdering Facility: [facility] Address:[address] [place], [place] [address]Performed By: #### 73381-5, , 2776-07 ####[facility] [id number], [place] [address] [place] AMERICAChloride [Moles/Vol]100 mmol/L Hwrtgp46-060SvyvwnqguUniversity Hospitals Health System on above:Order Comment: Specimen Type: BLOOD SPECIMENOrdering Facility: [facility] Address:[address] [place], [place] [address]Performed By: #### 96463-8, , 2776-07 ####[facility] [id number] [address] [place] AMERICACO2 [Moles/Vol]28 mmol/LNormal 22-30[facility] on above:Order Comment: Specimen Type: BLOOD SPECIMENOrdering Facility: [facility] Address:[address] [place], [place] [id number] By: #### 33487-4, , 2776-07 ####[facility] [id number] [place] [id number] [place] AMERICACreatinine [Mass/Vol]0.39 mg/dL Low0.58-0.96[facility] on above:Order Comment: Specimen Type: BLOOD SPECIMENOrdering Facility: [facility] Address:[address] [place], [place] [address]Performed By: #### 66288-4, , 2776-07 ####[facility] [id number] [address] [place] AMERICACreatinine and Glomerular filtration rate.predicted panel (S/P/Bld)133 mL/min/1.73m???Normal>=60[facility] on above:Order Comment: Specimen Type: BLOOD SPECIMENOrdering Facility: [facility] Address:[address] [place], [place] [phone] Comment: Estimated Glomerular Filtration Rate (eGFR) is calculated using the 2020 CKD-EPI creatinine equation. This equation utilizes serum creatinine, sex, and age as parameters. The creatinine assay has traceable calibration to isotope dilution-mass spectrometry. Refer to KDIGO guidelines for clinical interpretation. In patients with unstable renal function, e.g. those with acute kidney injury, the eGFR may not accurately reflect actual GFR.Performed By: #### 89073-1, , 2776-07 ####[facility] [id number] VILLE [id number] [place] AMERICAGlucose [Mass/Vol]106 mg/vMOhay22-20YdhocxiiyUniversity Hospitals Health System on above:Order Comment: Specimen Type: BLOOD SPECIMENOrdering Facility: [facility] Address:[address] [place], [place] [id number] Comment: The [place] Diabetes Association (ADA) provides guidance for cutoff [...] unequivocal hyperglycemia, results should be confirmed by repeattesting. In a patient with classic symptoms of hyperglycemia or hyperglycemic crisis, random plasmaglucose results greater than or equal to 200 mg/dL meet the criteria for diagnosis of diabetes.Reference: Standards of Medical Care in Diabetes 2016, [place] [employer]. Diabetes Care. 2016.39(Suppl 1).Performed By: #### 12208- 2, 68022-5, 2776- ####[facility] [id number] [place] [id number] [place] AMERICAPotassium [Moles/Vol] 3.8 mmol/LNormal3.7-5.1CMercy Health Urbana HospitalComup health system on above:Order Comment: Specimen Type: BLOOD SPECIMENOrdering Facility: [facility] Address:[address] [place], [place] [address]Performed By: #### 92413-1, , 2776-07 ####[facility] [id number], [place] [address] [place] AMERICASodium [Moles/Vol]137 mmol/L Eyvidb278-041HkjsbcrmaKettering Health Springfieldment on above:Order Comment: Specimen Type: BLOOD SPECIMENOrdering Facility: [facility] Address:[address] [place], [place] [address]Performed By: #### 65451-8, , 2776-07 ####[facility] [id number], [place] [address] [place] AMERICAUrea nitrogen [Mass/Vol]7 mg/dL Normal7-21[facility] on above:Order Comment: Specimen Type: BLOOD SPECIMENOrdering Facility: [facility] Address:[address] [place], [place] [address]Performed By: #### 23786-4, , 2776-07 ####[facility] [id number] VILLE [id number] [place] [facility] OF AMERICACBC panel Auto (Bld)on 08-24-2024 Erythrocyte distribution width (RBC) [Ratio]13.7 %Rugodn17.5-15.0[facility] on above:Order Comment: Specimen Type: BLOOD SPECIMENOrdering Facility: [facility] Address:[address] [place], [place] [address]Performed By: #### 79071-9 ####[facility] [id number] [place] [address] [place] AMERICAHematocrit (Bld) [Volume fraction]23.4 %Low36.0-46.0[facility] on above:Order Comment: Specimen Type: BLOOD SPECIMENOrdering Facility: [facility] Address:[address] [place], [place] [address]Performed By: #### 04733-6 ####[facility] [id number] [place] [address] [place] Hemoglobin (Bld) [Mass/Vol]7.5 g/dLLow11.5-15.5CHolmes [facility] on above:Order Comment: Specimen Type: BLOOD SPECIMENOrdering Facility: [facility] Address:[address] [place] [address] Performed By: #### 73905-3 ####[facility] [id number] [place] [address] [place] MCH (RBC) [Entitic mass]28.3 ioIsscog02.0-34.0[facility] on above:Order Comment: Specimen Type: BLOOD SPECIMENOrdering Facility: [facility] Address:[address] [place] [address] Performed By: #### 95072-3 ####[facility] [facility] [id number] [place] [address] [place] MCHC (RBC) [Mass/Vol]32.1 g/oYHjhldu72.5-36.0[facility] on above:Order Comment: Specimen Type: BLOOD SPECIMENOrdering Facility: [facility] Address:[address] [place] [address] Performed By: #### 48907-9 ####[facility] [id number] [place] [address] [place] MCV (RBC) [Entitic vol]88.3 xTVgowis85.0-100.0[facility] on above:Order Comment: Specimen Type: BLOOD SPECIMENOrdering Facility: [facility] Address:[address] [place] [address] Performed By: #### 79786-2 ####[facility] [id number] [place] [address] [place] Nucleated RBC (Bld) [#/Vol]10*3/uLNormal<0.01[facility] on above:Order Comment: Specimen Type: BLOOD SPECIMENOrdering Facility: [facility] Address:[address] [place] [address] Performed By: #### 23756-9 ####[facility] [id number] [place] [address] [place] Platelet mean volume (Bld) [Entitic vol]10.6 fLNormal9.0-12.7CHolmes [facility] on above:Order Comment: Specimen Type: BLOOD SPECIMENOrdering Facility: [facility] Address:[address] [place], [place] [address]Performed By: #### 86870-0 ####[facility] [id number] [place] [address] [place] Platelets (Bld) [#/Vol]217 10*3/cTVneric506-327SzmnlysekUniversity Hospitals Health System on above:Order Comment: Specimen Type: BLOOD SPECIMENOrdering Facility: [facility] Address:[address] [place] [address] Performed By: #### 73485-1 ####[facility] [id number] [place] [address] [place] RBC (Bld) [#/Vol]2.65 10*6/uLLow3.90-5.20[facility] on above:Order Comment: Specimen Type: BLOOD SPECIMENOrdering Facility: [facility] Address:[address] [place], [place] [address]Performed By: #### 10338-8 ####[facility] [id number] [place] [address] [place] AMERICAWBC (Bld) [#/Vol]8.64 10*3/uLNormal3.70-11.00[facility] on above:Order Comment: Specimen Type: BLOOD SPECIMENOrdering Facility: [facility] Address:[address] [place], [place] [address]Performed By: #### 67267-0 ####[facility] [id number] [place] [address] [place] AMERICACONSULT PROGon 04-21-2689RESAXCZ PROGNormalWood County HospitalMagnesium SerPl-mCncon 98-65-3959Sadvytxoc [Mass/Vol]1.9 mg/dLNormal1.7-2.3CHolmes [facility] on above:Order Comment: Specimen Type: BLOOD SPECIMENOrdering Facility: [facility] Address:[address] [place], [place] [address]Performed By: #### 49955- 2, 93611-4, 2777-1 ####[facility] [id number] [place] [address] [place] AMERICANURSING PROGon 09-80-9447ADCAGLO PROGNormalWood County HospitalPT EDon 51-79-5330VP ED NormalWood County HospitalPhosphate SerPl-mCncon 04-57-3232Ivigocxgo [Mass/Vol]5.5 mg/dLHigh2.7-4.8CHolmes [facility] on above:Order Comment: Specimen Type: BLOOD SPECIMENOrdering Facility: [facility] Address:[address] [place], [place] [address]Result Comment: Result rechecked.Performed By: #### 54283-1, 99816-5, 2776- ####[facility] [id number] VILLE [id number] [place] AMERICABasic metabolic 2000 panelon 26-83-2117Bafzj gap [Moles/Vol]8 mmol/LNormal8-15[facility] on above:Order Comment: Specimen Type: BLOOD SPECIMENOrdering Facility: [facility] Address:[address] [place], [place] [address]Performed By: #### 90059-1, , 2776-07 ####[facility] [id number], [place] [address] [place] AMERICACalcium [Mass/Vol]8.5 mg/dL Normal8.5-10.2CHolmes [facility] on above:Order Comment: Specimen Type: BLOOD SPECIMENOrdering Facility: [facility] Address:[address] [place], [place] [address]Performed By: #### 40968-8, , 2776-07 ####[facility] [id number], [place] [address] [place] AMERICAChloride [Moles/Vol]95 mmol/LLow 98-107[facility] on above:Order Comment: Specimen Type: BLOOD SPECIMENOrdering Facility: [facility] Address:[address] [place], [place] [address]Performed By: #### 69591-9, , 2776-07 ####[facility] [id number] VILLE [id number] [place] AMERICACO2 [Moles/Vol]30 mmol/LNormal 22-30[facility] on above:Order Comment: Specimen Type: BLOOD SPECIMENOrdering Facility: [facility] Address:[address] [place], [place] [address]Performed By: #### 72685-5, , 2776-07 ####[facility] [id number][place] [address] [place] AMERICACreatinine [Mass/Vol]0.42 mg/dL Low0.58-0.96[facility] on above:Order Comment: Specimen Type: BLOOD SPECIMENOrdering Facility: [facility] Address:[address] [place], [place] [address]Performed By: #### 92413-6, , 2776-07 ####[facility] [id number], [place] [address] [place]ICACreatinine and Glomerular filtration rate.predicted panel (S/P/Bld)130 mL/min/1.73m???Normal>=60[facility] on above:Order Comment: Specimen Type: BLOOD SPECIMENOrdering Facility: [facility] Address:[address] [place], [place] [address]Result Comment: Estimated Glomerular Filtration Rate (eGFR) is calculated using the 2020 CKD-EPI creatinine equation. This equation utilizes serum creatinine, sex, and age as parameters. The creatinine assay has traceable calibration to isotope dilution-mass spectrometry. Refer to KDIGO guidelines for clinical interpretation. In patients with unstable renal function, e.g. those with acute kidney injury, the eGFR may not accurately reflect actual GFR.Performed By: #### 99014-8, , 2776-07 ####[facility] [id number] VILLE [id number] [place] AMERICAGlucose [Mass/Vol]119 mg/yDOjzq95-29CtukvzkciUniversity Hospitals Health System on above:Order Comment: Specimen Type: BLOOD SPECIMENOrdering Facility: [facility] Address:[address] [place], [place] [address]Result Comment: The [place] Diabetes Association (ADA) provides guidance for cutoff [...] unequivocal hyperglycemia, results should be confirmed by repeattesting. In a patient with classic symptoms of hyperglycemia or hyperglycemic crisis, random plasmaglucose results greater than or equal to 200 mg/dL meet the criteria for diagnosis of diabetes.Reference: Standards of Medical Care in Diabetes 2016, [place] [employer]. Diabetes Care. 2016.39(Suppl 1).Performed By: #### 28002- 2, , 2776-07 ####[facility] [id number], [place] [address] [place] AMERICAPotassium [Moles/Vol] 3.6 mmol/LLow3.7-5.1CHolmes [facility] on above:Order Comment: Specimen Type: BLOOD SPECIMENOrdering Facility: [facility] Address:[address] [place], [place] [address]Performed By: #### 34087-1, , 2776-07 ####[facility] [id number], [place] [address] [place]ICASodium [Moles/Vol]133 mmol/LLow 136-144[facility] on above:Order Comment: Specimen Type: BLOOD SPECIMENOrdering Facility: [facility] Address:[address] [place], [place] [address]Performed By: #### 86782-8, , 2776-07 ####[facility] [id number], [place] [address] [place]ICAUrea nitrogen [Mass/Vol]4 mg/dL Low7-21[facility] on above:Order Comment: Specimen Type: BLOOD SPECIMENOrdering Facility: [facility] Address:[address] [place], [place] [address]Performed By: #### 20669-6, , 2776-07 ####[facility] [id number] [place] [address] [place] AMERICACASE MANAGEMon 05-48-8296QYOZ MANAGEMNormalWood County HospitalCASE MANAGEMNormalWood County HospitalCBC panel Auto (Bld)on 90-02-0865Kjhisyeuyuh distribution width (RBC) [Ratio]13.5 %Cvjcoa40.5-15.0[facility] on above:Order Comment: Specimen Type: BLOOD SPECIMENOrdering Facility: [facility] Address:[address] [place], [place] [address]Performed By: #### 58125- 2 ####[facility] [id number] [address] STATES OF [facility] VALLEY HOSPITALHematocrit (Bld) [Volume fraction]23.3 %Low36.0-46.0[facility] on above:Order Comment: Specimen Type: BLOOD SPECIMENOrdering Facility: [facility] Address:[address] [place], [place] [address]Performed By: #### 91460- 2 ####[facility] [id number] [address] STATES OF [facility] VALLEY HOSPITALHemoglobin (Bld) [Mass/Vol]7.5 g/dLLow11.5-15.5CHolmes [facility] on above:Order Comment: Specimen Type: BLOOD SPECIMENOrdering Facility: [facility] Address:[address] [place], [place] [address]Performed By: #### 42637-7 ####[facility] [id number] [place] [address] [place] AMERICAMCH (RBC) [Entitic mass]28.0 pg Ttprnq82.0-34.0[facility] on above:Order Comment: Specimen Type: BLOOD SPECIMENOrdering Facility: [facility] Address:[address] [place], [place] [address]Performed By: #### 93161-2 ####[facility] [id number] [address]ETMCHC (RBC) [Mass/Vol]32.2 g/dL Xmhvhn39.5-36.0[facility] on above:Order Comment: Specimen Type: BLOOD SPECIMENOrdering Facility: [facility] Address:[address] [place], [place] [address]Performed By: #### 15363-7 ####[facility] [id number] [address]ETMCV (RBC) [Entitic vol]86.9 fL Kvpsty18.0-100.0[facility] on above:Order Comment: Specimen Type: BLOOD SPECIMENOrdering Facility: [facility] Address:[address] [place], [place] [address]Performed By: #### 45378-9 ####[facility] [id number] [address]ETucleated RBC (Bld) [#/Vol] 10*3/uLNormal<0.01[facility] on above:Order Comment: Specimen Type: BLOOD SPECIMENOrdering Facility: [facility] Address:[address] [place], [place] [address]Performed By: #### 53423-7 ####[facility] [id number] [place] [address] [place] AMERICAPlatelet mean volume (Bld) [Entitic vol]9.9 fLNormal9.0-12.7CHolmes [facility] on above: Order Comment: Specimen Type: BLOOD SPECIMENOrdering Facility: [facility] Address:[address] [place], [place] [address]Performed By: #### 98623- 2 ####[facility] [id number] [place] [address] [place] AMERICAPlatelets (Bld) [#/Vol]226 10*3/gHYdrmni857-057JyhivmtbxUniversity Hospitals Health System on above:Order Comment: Specimen Type: BLOOD SPECIMENOrdering Facility: [facility] Address:[address] [place], [place] [address]Performed By: #### 62766-8 ####[facility] [id number] [place] [address] [place] HEALTHCARE OF AMERICARBC (Bld) [#/Vol]2.68 10*6/uLLow 3.90-5.20[facility] on above:Order Comment: Specimen Type: BLOOD SPECIMENOrdering Facility: [facility] Address:[address] [place], [place] [address]Performed By: #### 11609-1 ####[facility] [id number] [address] STATES OF [facility] VALLEY HOSPITALWBC (Bld) [#/Vol]9.24 10*3/uLNormal3.70-11.00[facility] on above:Order Comment: Specimen Type: BLOOD SPECIMENOrdering Facility: [facility] Address:[address] [place], [place] [address]Performed By: #### 64559-0 ####[facility] [id number] [place] [address] [place] AMERICACONSULT PROGon 67-85-7961HSDVPII PROGNormalWood County Hospital Magnesium SerPl-mCncon 68-98-8494Keztlctjh [Mass/Vol]1.7 mg/dLNormal1.7-2.3 [facility] on above:Order Comment: Specimen Type: BLOOD SPECIMENOrdering Facility: [facility] Address:[address] [place], [place] [address]Performed By: #### 95077-3, 78345-7, 2777-1 ####[facility] [id number] [address] [place] AMERICAPhosphate SerPl-mCncon 55-71-1804Bigpqevmw [Mass/Vol]2.2 mg/dLLow2.7-4.8CHolmes [facility] on above:Order Comment: Specimen Type: BLOOD SPECIMENOrdering Facility: [facility] Address:[address] [place], [place] [address]Performed By: #### 64796- 2, 55343-8, 2776-07 ####[facility] [id number] VILLE [id number] [place] AMERICATHERAPY NTon 22-16-1280ASKYQMT NTNormalCleveland Adventhealth HendersonvilleTHERAPY NTNormalCleveland [facility] HEALTHon 73-43-4025JKVCPC HEALTHNormalCleveland [facility] HEALTHNormalClake county memorial hospital - westand [facility] HEALTHNormal Wood County HospitalBasi metabolic 2000 panelon 07-53-0809Gogpp gap [Moles/Vol]7 mmol/LLow8-15[facility] on above:Order Comment: Specimen Type: BLOOD SPECIMENOrdering Facility: [facility] Address:[address] [place], [place] [address]Performed By: #### 79503- 2, , 2776-07 ####[facility] [id number] VILLE [id number] [place] AMERICACalcium [Mass/Vol]8.6 mg/dLNormal8.5-10.2CHolmes [facility] on above:Order Comment: Specimen Type: BLOOD SPECIMENOrdering Facility: [facility] Address:[address] [place], [place] [address]Performed By: #### 95517-1, 01127-7, 2776-07 ####[facility] [id number] VILLE [id number] [place] AMERICAChloride [Moles/Vol]97 mmol/LLow 98-107[facility] on above:Order Comment: Specimen Type: BLOOD SPECIMENOrdering Facility: [facility] Address:[address] [place], [place] [address]Performed By: #### 00460-5, , 2776-07 ####[facility] [id number], [place] [address] [place]ICACO2 [Moles/Vol]30 mmol/LNormal 22-30[facility] on above:Order Comment: Specimen Type: BLOOD SPECIMENOrdering Facility: [facility] Address:[address] [place], [place] [address]Performed By: #### 86742-8, , 2776-07 ####[facility] [id number][place] [address] [place] AMERICACreatinine [Mass/Vol]0.44 mg/dL Low0.58-0.96[facility] on above:Order Comment: Specimen Type: BLOOD SPECIMENOrdering Facility: [facility] Address:[address] [place], [place] [address]Performed By: #### 03122-1, , 2776-07 ####[facility] [id number], [place] [address] [place] [facility]ALTHCARE OF AMERICACreatinine and Glomerular filtration rate.predicted panel (S/P/Bld)129 mL/min/1.73m???Normal>=60[facility] on above:Order Comment: Specimen Type: BLOOD SPECIMENOrdering Facility: [facility] Address:[address] [place], [place] [address]Result Comment: Estimated Glomerular Filtration Rate (eGFR) is calculated using the 2020 CKD-EPI creatinine equation. This equation utilizes serum creatinine, sex, and age as parameters. The creatinine assay has traceable calibration to isotope dilution-mass spectrometry. Refer to KDIGO guidelines for clinical interpretation. In patients with unstable renal function, e.g. those with acute kidney injury, the eGFR may not accurately reflect actual GFR.Performed By: #### 93706-1, , 2776-07 ####[facility] [id number] VILLE [id number] [place] AMERICAGlucose [Mass/Vol]104 mg/xHVdhk65-80MliduhqdoUniversity Hospitals Health System on above:Order Comment: Specimen Type: BLOOD SPECIMENOrdering Facility: [facility] Address:[address] [place], [place] [address]Result Comment: The [place] Diabetes Association (ADA) provides guidance for cutoff [...] unequivocal hyperglycemia, results should be confirmed by repeattesting. In a patient with classic symptoms of hyperglycemia or hyperglycemic crisis, random plasmaglucose results greater than or equal to 200 mg/dL meet the criteria for diagnosis of diabetes.Reference: Standards of Medical Care in Diabetes 2016, [place] Diabetes Association. Diabetes Care. 2016.39(Suppl 1).Performed By: #### 67095- 2, , 2776-07 ####[facility] [id number], [place] [address] [place] AMERICAPotassium [Moles/Vol] 3.9 mmol/LNormal3.7-5.1CHolmes [facility] on above:Order Comment: Specimen Type: BLOOD SPECIMENOrdering Facility: [facility] Address:[address] [place], [place] [address]Performed By: #### 16003-8, , 2776-07 ####[facility] [id number], [place] [address] [place] AMERICASodium [Moles/Vol]134 mmol/LLow 136-144[facility] on above:Order Comment: Specimen Type: BLOOD SPECIMENOrdering Facility: [facility] Address:[address] [place], [place] [address]Performed By: #### 59512-6, , 2776-07 ####[facility] [id number] [address] [place] AMERICAUrea nitrogen [Mass/Vol]4 mg/dL Low7-21[facility] on above:Order Comment: Specimen Type: BLOOD SPECIMENOrdering Facility: [facility] Address:[address] [place], [place] [address]Performed By: #### 73353-4, 45326-1, 2776-07 ####[facility] [id number] [address] [place] AMERICAAnion gap [Moles/Vol]12 mmol/L Normal8-15[facility] on above:Order Comment: Specimen Type: BLOOD SPECIMENOrdering Facility: [facility] Address:[address] [place], [place] [address]Performed By: #### 84746-9, 2777-1, 2571-02, ####[facility] [id number] [place] [address] [place] AMERICACalcium [Mass/Vol]8.7 mg/dLNormal8.5-10.2CHolmes [facility] on above:Order Comment: Specimen Type: BLOOD SPECIMENOrdering Facility: [facility] Address:[address] [place], [place] [address]Performed By: #### 67521-4, 277-, 2571-02, ####[facility] [id number] [address] [address] [place] AMERICAChloride [Moles/Vol]93 mmol/LOhv21-796NicytlqevUniversity Hospitals Health System on above:Order Comment: Specimen Type: BLOOD SPECIMENOrdering Facility: [facility] Address:[address] [place], [place] [address]Performed By: #### 74519-1, 2777-1, 2571-02, ####[facility] [id number] [place] [address] [place] AMERICACO2 [Moles/Vol]27 mmol/VYpeoka84-96XjmlipicyUniversity Hospitals [facility] on above:Order Comment: Specimen Type: BLOOD SPECIMENOrdering Facility: [facility] Address:[address] [place], [place] [address]Performed By: #### 75089-2, 2777-1, 2570-8, ####[facility] [id number] [place] [address] [place] OF AMERICACreatinine [Mass/Vol] 0.48 mg/dLLow0.58-0.96[facility] on above:Order Comment: Specimen Type: BLOOD SPECIMENOrdering Facility: [facility] Address:[address] [place], [place] [address]Performed By: #### 73992-6, 2777-1, 2571-02, ####[facility] [id number] [address] STATES OF [facility]LEY HOSPITALCreatinine and Glomerular filtration rate.predicted panel (S/P/Bld)126 mL/min/1.73m???Normal >=60[facility] on above:Order Comment: Specimen Type: BLOOD SPECIMENOrdering Facility: [facility] Address:[address] [place], [place] [address]Result Comment: Estimated Glomerular Filtration Rate (eGFR) is calculated using the 2020 CKD-EPI creatinine equation. This equation utilizes serum creatinine, sex, and age as parameters. The creatinine assay has traceable calibration to isotope dilution-mass spectrometry. Refer to KDIGO guidelines for clinical interpretation. In patients with unstable renal function, e.g. those with acute kidney injury, the eGFR may not accurately reflect actual GFR.Performed By: #### 34992-9, 2777-1, 2570-8, ####[facility] [id number] [address] [address] [place] AMERICAGlucose [Mass/Vol]96 mg/dLNormal 74-99[facility] on above:Order Comment: Specimen Type: BLOOD SPECIMENOrdering Facility: [facility] Address:[address] [place], [place] [address]Result Comment: The [place] Diabetes Association (ADA) provides guidance for cutoff [...] unequivocal hyperglycemia, results should be confirmed by repeattesting. In a patient with classic symptoms of hyperglycemia or hyperglycemic crisis, random plasmaglucose results greater than or equal to 200 mg/dL meet the criteria for diagnosis of diabetes.Reference: Standards of Medical Care in Diabetes 2016, [place] [employer]. Diabetes Care. 2016.39(Suppl 1).Performed By: #### 41619- 2, 2777-1, 2571-02, ####[facility] [id number] [place] [address] [place] Potassium [Moles/Vol]3.3 mmol/LLow3.7-5.1CHolmes [facility] on above:Order Comment: Specimen Type: BLOOD SPECIMENOrdering Facility: [facility] Address:[address] [place], [place] [address]Performed By: #### 46868-9, 2777-1, 2571-02, ####[facility] [id number] [place] [address] [place] Sodium [Moles/Vol]132 mmol/QRlm556-135AwqsizoqkUniversity Hospitals Health System on above:Order Comment: Specimen Type: BLOOD SPECIMENOrdering Facility: [facility] Address:[address] [place], [place] [address]Performed By: #### 98472-2, 2777-1, 2571-02, ####[facility] [id number] [address] [address] [place] Urea nitrogen [Mass/Vol]5 mg/dLLow7-21[facility] on above:Order Comment: Specimen Type: BLOOD SPECIMENOrdering Facility: [facility] Address:[address] [place], [place] [address]Performed By: #### 83150-6, 2777-1, 2571-8, 08635-1 ####[facility] [id number] [place] [id number] [place] CASE MANAGEMon 66-98-8060HKNO MANAGEMNormalWood County HospitalCASE MANAGEMNormalWood County HospitalCASE MANAGEMNormalWood County HospitalCBC panel Auto (Bld)on 24-80-0964Jqchgufppzh distribution width (RBC) [Ratio]13.3 %Uqfokc21.5-15.0[facility] on above:Order Comment: Specimen Type: BLOOD SPECIMENOrdering Facility: [facility] Address:[address] [place], [place] [address]Performed By: #### 09030- 2 ####[facility] [id number] [place] [id number] [place] AMERICAHematocrit (Bld) [Volume fraction]26.1 %Low36.0-46.0[facility] on above:Order Comment: Specimen Type: BLOOD SPECIMENOrdering Facility: [facility] Address:[address] [place], [place] [address]Performed By: #### 50710- 2 ####[facility] [id number] [place] [id number] [place] AMERICAHemoglobin (Bld) [Mass/Vol]8.4 g/dLLow11.5-15.5CHolmes County [facility] on above:Order Comment: Specimen Type: BLOOD SPECIMENOrdering Facility: [facility] Address:[address] [place], [place] [address]Performed By: #### 97591-6 ####[facility] [id number] [address] (RBC) [Entitic mass]27.9 pg Pmdhhj91.0-34.0[facility] on above:Order Comment: Specimen Type: BLOOD SPECIMENOrdering Facility: [facility] Address:[address] [place], [place] [address]Performed By: #### 85890-2 ####[facility] [id number] [address] (RBC) [Mass/Vol]32.2 g/dL Djxjox59.5-36.0[facility] on above:Order Comment: Specimen Type: BLOOD SPECIMENOrdering Facility: [facility] Address:[address] [place], [place] [address]Performed By: #### 83232-0 ####[facility] [id number] [address] (RBC) [Entitic vol]86.7 fL Vktqht89.0-100.0[facility] on above:Order Comment: Specimen Type: BLOOD SPECIMENOrdering Facility: [facility] Address:[address] [place], [place] [address]Performed By: #### 79196-8 ####[facility] [id number] [address] RBC (Bld) [#/Vol] 10*3/uLNormal<0.01[facility] on above:Order Comment: Specimen Type: BLOOD SPECIMENOrdering Facility: [facility] Address:[address] [place], [place] [address]Performed By: #### 30518-2 ####[facility] [id number] [address] AV[address]ED[address] [place]TMOPVQ, [place] [address] [place] AMERICAPlatelet mean volume (Bld) [Entitic vol]10.0 fLNormal9.0-12.7CHolmes [facility] on above: Order Comment: Specimen Type: BLOOD SPECIMENOrdering Facility: [facility] Address:[address] [place], [place] [address]Performed By: #### 87141- 2 ####[facility] [id number] [place] [address] [place] AMERICAPlatelets (Bld) [#/Vol]265 10*3/qZLjorim514-720XpahdrsuhUniversity Hospitals Health System on above:Order Comment: Specimen Type: BLOOD SPECIMENOrdering Facility: [facility] Address:[address] [place], [place] [address]Performed By: #### 58966-7 ####[facility] LABCL[facility] [id number] [place] [address] [place] AMERICARBC (Bld) [#/Vol]3.01 10*6/uLLow 3.90-5.20[facility] on above:Order Comment: Specimen Type: BLOOD SPECIMENOrdering Facility: [facility] Address:[address] [place], [place] [address]Performed By: #### 16972-2 ####[facility] [id number] [place] [address] [place] AMERICAWBC (Bld) [#/Vol]10.62 10*3/uLNormal3.70-11.00[facility] on above:Order Comment: Specimen Type: BLOOD SPECIMENOrdering Facility: [facility] Address:[address] [place], [place] [address]Performed By: #### 17103-9 ####[facility] [id number] [place] [address] [place] AMERICAErythrocyte distribution width (RBC) [Ratio]13.5 %Mkfoom68.5-15.0 [facility] on above:Order Comment: Specimen Type: BLOOD SPECIMENOrdering Facility: [facility] Address:[address] [place], [place] [address]Performed By: #### 76013-9 ####[facility] [id number] [place] [address] [place] AMERICAHematocrit (Bld) [Volume fraction]26.9 %Low36.0-46.0[facility] on above:Order Comment: Specimen Type: BLOOD SPECIMENOrdering Facility: [facility] Address:[address] [place], [place] [address]Performed By: #### 19172-5 ####[facility] [id number] [place] [address] [place] Hemoglobin (Bld) [Mass/Vol]8.8 g/dLLow11.5-15.5CHol[facility] on above:Order Comment: Specimen Type: BLOOD SPECIMENOrdering Facility: [facility] Address:[address] [place] [address] Performed By: #### 30988-8 ####[facility] [id number] [place] [address] [place] MCH (RBC) [Entitic mass]28.5 liHniyck71.0-34.0[facility] on above:Order Comment: Specimen Type: BLOOD SPECIMENOrdering Facility: [facility] Address:[address] [place] [address] Performed By: #### 23582-7 ####[facility] [id number] [place] [address] [place] MCHC (RBC) [Mass/Vol]32.7 g/vCHadzbm92.5-36.0[facility] on above:Order Comment: Specimen Type: BLOOD SPECIMENOrdering Facility: [facility] Address:[address] [place] [address] Performed By: #### 26559-3 ####[facility] [id number] [place] [address] [place] MCV (RBC) [Entitic vol]87.1 jHItojig81.0-100.0[facility] on above:Order Comment: Specimen Type: BLOOD SPECIMENOrdering Facility: [facility] Address:[address] [place] [address] Performed By: #### 72590-2 ####[facility] [id number] [place] [address] [place] Nucleated RBC (Bld) [#/Vol]10*3/uLNormal<0.01[facility] on above:Order Comment: Specimen Type: BLOOD SPECIMENOrdering Facility: [facility] Address:[address] [place] [address] Performed By: #### 61557-5 ####[facility] [id number] [place] [address] [place] Platelet mean volume (Bld) [Entitic vol]10.1 fLNormal9.0-12.7CHolmes [facility] on above:Order Comment: Specimen Type: BLOOD SPECIMENOrdering Facility: [facility] Address:[address] [place], [place] [address]Performed By: #### 65483-7 ####[facility] [id number] [place] [address] [place] Platelets (Bld) [#/Vol]287 10*3/oBSoijit658-197FlxjlfuieUniversity Hospitals Health System on above:Order Comment: Specimen Type: BLOOD SPECIMENOrdering Facility: [facility] Address:[address] [place] [address] Performed By: #### 51805-8 ####[facility] [id number] [place] [address] [place] RBC (Bld) [#/Vol]3.09 10*6/uLLow3.90-5.20[facility] on above:Order Comment: Specimen Type: BLOOD SPECIMENOrdering Facility: [facility] Address:[address] [place], [place] [address]Performed By: #### 28351-9 ####[facility] [id number] [place] [address] [place] AMERICAWBC (Bld) [#/Vol]14.28 10*3/uLHigh3.70-11.00[facility] on above:Order Comment: Specimen Type: BLOOD SPECIMENOrdering Facility: [facility] Address:[address] [place], [place] [address]Performed By: #### 34623-9 ####[facility] [id number] [place] [address] [place] AMERICACONSULT PROGon 84-12-7500OMQNHCF PROGNormalWood County HospitalMagnesium SerPl-mCncon 36-28-8700Mvspkdasl [Mass/Vol]2.1 mg/dLNormal1.7-2.3CHol[facility] on above:Order Comment: Specimen Type: BLOOD SPECIMENOrdering Facility: [facility] Address:[address] [place], [place] [address]Performed By: #### 79032- 2, 81985-9, 2777-1 ####[facility] LABCL[facility] [id number] [address] [place] AMERICAMagnesium [Mass/Vol] 2.7 mg/dLHigh1.7-2.3CHol[facility] on above:Order Comment: Specimen Type: BLOOD SPECIMENOrdering Facility: [facility] Address:[address] [place], [place] [address]Result Comment: Result rechecked. Performed By: #### 78572-4, 277-1, 2570-8, ####[facility]CL[facility] [id number] [place] [address] [place] AMERICAPhosphate SerPl-mCncon 99-88-2320Ywzdqovbs [Mass/Vol]2.0 mg/dL Low2.7-4.8ClevelWayne HealthCare [facility] on above:Order Comment: Specimen Type: BLOOD SPECIMENOrdering Facility: [facility] Address:[address] [place], [place] [address]Performed By: #### 58385-2, 19593-6, 2776-07 ####[facility]CL[facility] [id number] [address] STATES OF AMERICAPhosphate [Mass/Vol]3.0 mg/dL Normal2.7-4.8ClevelWayne HealthCare Main [facility] on above:Order Comment: Specimen Type: BLOOD SPECIMENOrdering Facility: [facility] Address:[address] [place], [place] [address]Performed By: #### 94716-9, 2777-1, 8, ####[facility] [id number] [place] [address] [place] AMERICATHERAPY NTon 82-45-6114XQXZIGB NTNormalCleveland Adventhealth HendersonvilleTHERAPY NTNormalCleveland Adventhealth HendersonvilleTrigl SerPl-mCncon 43-20-1615Hicgjmhduqru [Mass/Vol]134 mg/dL Normal<150[facility] on above:Order Comment: Specimen Type: BLOOD SPECIMENOrdering Facility: [facility] Address:[address] [place], [place] [address]Result Comment: <150 mg/dL, Normal 150-199 mg/dL, Borderline high 200-499 mg/dL, High>499 mg/dL, Very highReference:1. National Cholesterol Education Program ATP III Guideline At-A-Glance QuickDesk Reference: National Heart, Lung, and Blood [place]. National Institutes of Health. 2001: NIHPublication No. 202.Performed By: #### 07352-0, 2777-1, 2570-8, ####[facility] [id number] [address] [address] [place] AMERICATriglyceride [Mass/Vol]on 93-35-2996NJUUXQD TIME8 hrsNormalCHolmes County [facility] on above: Order Comment: Specimen Type: BLOOD SPECIMENOrdering Facility: [facility] Address:[address] [place], [place] [address]Performed By: #### 96133- 2, 2777-1, 8, ####[facility] LABCLIA [id number] [place] [id number] [place] OF AMERICAALLIED HEALTHon 93-90-2796VIXKZR HEALTHNoalCMercy Health Urbana HospitalBasic metabolic 2000 panelon 73-98-8635Xqgkn gap [Moles/Vol]11 mmol/LNormal8-15[facility] on above:Order Comment: Specimen Type: BLOOD SPECIMENOrdering Facility: [facility] Address:[address] [place], [place] [address]Performed By: #### 1987-11, , , ####[facility] [id number] [place] [address] [place] AMERICACalcium [Mass/Vol]8.7 mg/dLNormal8.5-10.2CHolmes [facility] on above:Order Comment: Specimen Type: BLOOD SPECIMENOrdering Facility: [facility] Address:[address] [place], [place] [id number] By: #### 1987-11, , 65977-9, ####[facility] [id number] [place] [address] [place] AMERICAChloride [Moles/Vol]93 mmol/LLow 98-107[facility] on above:Order Comment: Specimen Type: BLOOD SPECIMENOrdering Facility: [facility] Address:[address] [place] [address]Szzfrrzqv By: #### 1987-11, 09005-1, , ####[facility] [id number] [address] [address] [place] AMERICACO2 [Moles/Vol]28 mmol/LNormal 22-30[facility] on above:Order Comment: Specimen Type: BLOOD SPECIMENOrdering Facility: [facility] Address:[address] [place] [address]Isumejkxj By: #### 1987-11, , , ####[facility] [id number] [address] [address] [place] AMERICACreatinine [Mass/Vol]0.49 mg/dL Low0.58-0.96[facility] on above:Order Comment: Specimen Type: BLOOD SPECIMENOrdering Facility: [facility] Address:[address] [place], [place] [id number] By: #### 1987-11, , , ####[facility] [id number] [place] [id number] [place] AMERICACreatinine and Glomerular filtration rate.predicted panel (S/P/Bld)125 mL/min/1.73m???Normal >=60[facility] on above:Order Comment: Specimen Type: BLOOD SPECIMENOrdering Facility: [facility] Address:[address] [place], [place] [id number] Comment: Estimated Glomerular Filtration Rate (eGFR) is calculated using the 2020 CKD-EPI creatinine equation. This equation utilizes serum creatinine, sex, and age as parameters. The creatinine assay has traceable calibration to isotope dilution-mass spectrometry. Refer to KDIGO guidelines for clinical interpretation. In patients with unstable renal function, e.g. those with acute kidney injury, the eGFR may not accurately reflect actual GFR.Performed By: #### 1987-11, , , ####[facility] [id number] [place] [address] [place] AMERICAGlucose [Mass/Vol]93 mg/dLNormal 74-99[facility] on above:Order Comment: Specimen Type: BLOOD SPECIMENOrdering Facility: [facility] Address:[address] [place], [place] [id number] Comment: The [place] Diabetes Association (ADA) provides guidance for cutoff [...] unequivocal hyperglycemia, results should be confirmed by repeattesting. In a patient with classic symptoms of hyperglycemia or hyperglycemic crisis, random plasmaglucose results greater than or equal to 200 mg/dL meet the criteria for diagnosis of diabetes.Reference: Standards of Medical Care in Diabetes 2016, [place] [employer] Association. Diabetes Care. 2016.39(Suppl 1).Performed By: #### 1987-11, , , ####[facility] [id number] [place] [address] [place] Potassium [Moles/Vol]2.9 mmol/LLow3.7-5.1CHolmes [facility] on above:Order Comment: Specimen Type: BLOOD SPECIMENOrdering Facility: [facility] Address:[address] [place], [place] [address]Pcwasuavx By: #### 1987-11, , , ####[facility] [id number] [place] [id number] [place] Sodium [Moles/Vol]132 mmol/AYsg701-707UutolrmhzUniversity Hospitals [facility] on above:Order Comment: Specimen Type: BLOOD SPECIMENOrdering Facility: [facility] Address:[address] [place], [place] [address]Performed By: #### 1987-, , , ####[facility] [id number] [place] [address] [place] Urea nitrogen [Mass/Vol]10 mg/dLNormal7-21[facility] on above:Order Comment: Specimen Type: BLOOD SPECIMENOrdering Facility: [facility] Address:[address] [place], [place] [address]Performed By: #### 1987-11, , , ####[facility] [id number] [place] [address] [place] CASE MANAGEMon 66-84-4824LHFB MANAGEMNormalWood County HospitalCASE MGT INIT ASSESon 57-38-1751YSOM MGT INIT [facility]ace HospitalalCMercy Health Urbana HospitalCB panel Auto (Bld)on 47-39-0870Nvedsdctjhl distribution width (RBC) [Ratio]13.7 % Kcoqpq82.5-15.0[facility] on above:Order Comment: Specimen Type: BLOOD SPECIMENOrdering Facility: [facility] Address:[address] [place], [place] [address]Performed By: #### 74206-9 ####[facility] [id number] [place] [address] [place] AMERICAHematocrit (Bld) [Volume fraction]27.8 %Low36.0-46.0[facility] on above:Order Comment: Specimen Type: BLOOD SPECIMENOrdering Facility: [facility] Address:[address] [place], [place] [address]Performed By: #### 69180- 2 ####[facility] [id number] [address] AVENUEDESK [id number] CHANG STREETHemoglobin (Bld) [Mass/Vol]9.2 g/dLLow11.5-15.5CHolmes [facility] on above:Order Comment: Specimen Type: BLOOD SPECIMENOrdering Facility: [facility] Address:[address] [place], [place] [address]Performed By: #### 66989-3 ####[facility] [id number] [address] (RBC) [Entitic mass]28.5 pg Qtsdpz03.0-34.0[facility] on above:Order Comment: Specimen Type: BLOOD SPECIMENOrdering Facility: [facility] Address:[address] [place], [place] [address]Performed By: #### 85728-5 ####[facility] [id number] [address]HC (RBC) [Mass/Vol]33.1 g/dL Sbrnzp83.5-36.0[facility] on above:Order Comment: Specimen Type: BLOOD SPECIMENOrdering Facility: [facility] Address:[address] [place], [place] [address]Performed By: #### 93034-7 ####[facility] [id number] [address]V (RBC) [Entitic vol]86.1 fL Fkzwph77.0-100.0[facility] on above:Order Comment: Specimen Type: BLOOD SPECIMENOrdering Facility: [facility] Address:[address] [place], [place] [address]Performed By: #### 60363-1 ####[facility] [id number] [address]ucleated RBC (Bld) [#/Vol] 10*3/uLNormal<0.01[facility] ClevelandComment on above:Order Comment: Specimen Type: BLOOD SPECIMENOrdering Facility: [facility] Address:[address] [place], [place] [id number] By: #### 21943-4 ####[facility]CL[facility] [id number] [place] [id number] [place] AMERICAPlatelet mean volume (Bld) [Entitic vol]10.2 fLNormal9.0-12.7CHolmes [facility] on above: Order Comment: Specimen Type: BLOOD SPECIMENOrdering Facility: [facility] Address:[address] [place], [place] [address]Performed By: #### 03602- 2 ####[facility] [id number] [place] [address] [place] AMERICAPlatelets (Bld) [#/Vol]279 10*3/pURvflcz584-919GrtxaqmwsUniversity Hospitals Health System on above:Order Comment: Specimen Type: BLOOD SPECIMENOrdering Facility: [facility] Address:[address] [place], [place] [id number] By: #### 57731-6 ####[facility] [id number] [place] [address] [place] AMERICARBC (Bld) [#/Vol]3.23 10*6/uLLow 3.90-5.20[facility] on above:Order Comment: Specimen Type: BLOOD SPECIMENOrdering Facility: [facility] Address:[address] [place], [place] [phone] By: #### 19875-3 ####[facility] [id number] [place] [address] [place] AMERICAWBC (Bld) [#/Vol]14.98 10*3/uLHigh3.70-11.00[facility] on above:Order Comment: Specimen Type: BLOOD SPECIMENOrdering Facility: [facility] Address:[address] [place], [place] [id number] By: #### 26386-7 ####[facility] [id number] [place] [address] [place] OF AMERICACONSULTon 77-17-1680DNRLCUHOsisicYmdsizdtf Clinic ClevelandCONLAKEHEALTH [facility] PROG on 86-07-3773BNISXOP PROGNormalWood County HospitalCONLT PROGNormal Wood County HospitalCRP SerPl-mCncon 72-74-1509TBM [Mass/Vol]28.8 mg/dL High<0.9CMercy Health Urbana HospitalComment on above:Order Comment: Specimen Type: BLOOD SPECIMENOrdering Facility: [facility] Address:[address] [place], [place] [address]Performed By: #### 1987-11, , , ####[facility]CL[facility] [id number] [place] [id number] [place] AMERICAHepatic function 2000 panelon 97-34-2704Bsccpxa [Mass/Vol]2.9 g/dLLow3.9-4.9ClevelCentral Carolina Hospital Comment on above:Order Comment: Specimen Type: BLOOD SPECIMENOrdering Facility: [facility] Address:[address] [place] [address] Performed By: #### 1987-11, , , ####[facility]CL[facility] [id number] [place] [id number] [place] AMERICAALP [Catalytic activity/Vol]82 U/VOjubkh11-635VlklyczsuWood County HospitalComup health system on above:Order Comment: Specimen Type: BLOOD SPECIMENOrdering Facility: [facility] Address:[address] [place], [place] [address]Performed By: #### 1987-11, , , ####[facility] [id number] [place] [id number] [place] AMERICAALT [Catalytic activity/Vol]11 U/LNormal7-38[facility] on above:Order Comment: Specimen Type: BLOOD SPECIMENOrdering Facility: [facility] Address:[address] [place], [place] [address]Performed By: #### 1987-11, 26012-1, 09574-7, ####[facility]CL[facility] [id number] [place] [address] [place] AMERICAAST [Catalytic activity/Vol]12 U/ZUhr53-95SssdoysrdUniversity Hospitals Health System on above:Order Comment: Specimen Type: BLOOD SPECIMENOrdering Facility: [facility] Address:[address] [place], [place] [address]Performed By: #### 1987-11, , , ####[facility]CL[facility] [id number] [place] [address] [place] AMERICABilirubin [Mass/Vol] 0.3 mg/dLNormal0.2-1.3CHolmes [facility] on above:Order Comment: Specimen Type: BLOOD SPECIMENOrdering Facility: [facility] Address:[address] [place], [place] [address]Performed By: #### 1987-11, , , ####[facility]CL[facility] [id number] [place] [address] [place] AMERICABilirubin.conjugated [Mass/Vol]0.1 mg/dLNormal<0.3CHolmes [facility] on above:Order Comment: Specimen Type: BLOOD SPECIMENOrdering Facility: [facility] Address:[address] [place], [place] [address]Performed By: #### , , , ####[facility]CL[facility] [id number] [place] [address] [place] Protein [Mass/Vol]5.8 g/dLLow6.3-8.0[facility] on above: Order Comment: Specimen Type: BLOOD SPECIMENOrdering Facility: [facility] Address:[address] [place], [place] [address]Performed By: #### , 13897-9, 46323-0, ####[facility] [id number] [place] [address] [place] Magnesium SerPl-mCncon 77-94-4557Ndmaatelt [Mass/Vol]1.6 mg/dLLow1.7-2.3 [facility] on above:Order Comment: Specimen Type: BLOOD SPECIMENOrdering Facility: [facility] Address:[address] [place], [place] [address]Performed By: #### 1987-11, , , ####[facility] [id number] [place] [address] [place] AMERICAPT EDon 24-90-6927NT EDNormal Wood County HospitalPhosphate SerPl-mCncon 28-31-6608Rmwqsqucp [Mass/Vol] 2.1 mg/dLLow2.7-4.8CHolmes [facility] on above:Order Comment: Specimen Type: BLOOD SPECIMENOrdering Facility: [facility] Address:[address] [place], [place] [address]Performed By: #### 2777-1 ####[facility]CL[facility] [id number] [place] [address] [place] AMERICAUS ARM VEIN DVT UNL VAS LABon 23-73-2054ZG ARM VEIN DVT UNL VAS LABNormalCMercy Health Fairfield Hospital 79-34-1950MPRZRA HEALTHNormalCMercy Health Urbana HospitalCONSULT PROGon 37-82-7731RMQNJPZ PROGNormalWood County HospitalNURSING PROGon 08-20-2024 NURSING PROGNormalTwin City Hospital 35-31-4076MQFOGW HEALTHNormalClevelCentral Carolina HospitalBapaintsville arh hospital metabolic 2000 panelon 08-19-2024 Anion gap [Moles/Vol]15 mmol/LNormal8-15[facility] on above:Order Comment: Specimen Type: BLOOD SPECIMENOrdering Facility: [facility] Address:[address] [place], [place] [id number] By: #### 95234-1, , 2776-07 ####[facility] LABCLIA [id number] VILLE [id number] [place] Calcium [Mass/Vol]8.6 mg/dLNormal8.5-10.2CHolmes [facility] on above:Order Comment: Specimen Type: BLOOD SPECIMENOrdering Facility: [facility] Address:[address] [place], [place] [address]Performed By: #### 10437-0, , 2776-07 ####[facility] LABCLIA [id number] VIL[place] [id number] [place] Chloride [Moles/Vol]101 mmol/PAjxqda81-151ZdketxfpxUniversity [facility]als [facility] on above:Order Comment: Specimen Type: BLOOD SPECIMENOrdering Facility: [facility] Address:[address] [place], [place] [id number] By: #### 34464-0, , 2776-07 ####[facility] LABCLIA [id number] [place] [id number] [place] CO2 [Moles/Vol]19 mmol/UJrt68-33WabrmcoxsUniversity Hospitals Health System on above:Order Comment: Specimen Type: BLOOD SPECIMENOrdering Facility: [facility] Address:[address] [place], [place] [address]Performed By: #### 52537- 2, , 2776-07 ####[facility] LAB[facility] [id number] [place] [id number] [place] AMERICACreatinine [Mass/Vol] 0.49 mg/dLLow0.58-0.96[facility] on above:Order Comment: Specimen Type: BLOOD SPECIMENOrdering Facility: [facility] Address:[address] [place], [place] [address]Performed By: #### 84914-8, , 2776-07 ####[facility] LABIA [id number], [place] [address] [place] AMERICACreatinine and Glomerular filtration rate.predicted panel (S/P/Bld)125 mL/min/1.73m???Normal>=60[facility] on above:Order Comment: Specimen Type: BLOOD SPECIMENOrdering Facility: [facility] Address:[address] [place], [place] [address]Result Comment: Estimated Glomerular Filtration Rate (eGFR) is calculated using the 2020 CKD-EPI creatinine equation. This equation utilizes serum creatinine, sex, and age as parameters. The creatinine assay has traceable calibration to isotope dilution-mass spectrometry. Refer to KDIGO guidelines for clinical interpretation. In patients with unstable renal function, e.g. those with acute kidney injury, the eGFR may not accurately reflect actual GFR.Performed By: #### 09304-0, , 2776-07 ####[facility] LABIA [id number] VIL[place] [address] [place] AMERICAGlucose [Mass/Vol]78 mg/sCRkzcch22-71QlwhevlppUniversity Hospitals [facility] on above:Order Comment: Specimen Type: BLOOD SPECIMENOrdering Facility: [facility] Address:[address] [place], [place] [address]Result Comment: The [place] Diabetes Association (ADA) provides guidance for cutoff [...] unequivocal hyperglycemia, results should be confirmed by repeattesting. In a patient with classic symptoms of hyperglycemia or hyperglycemic crisis, random plasmaglucose results greater than or equal to 200 mg/dL meet the criteria for diagnosis of diabetes.Reference: Standards of Medical Care in Diabetes 2016, [place] [employer]. Diabetes Care. 2016.39(Suppl 1).Performed By: #### 45353- 2, , 2776-07 ####[facility] LABCLIA [id number] [place] [id number] [place] AMERICAPotassium [Moles/Vol] 4.3 mmol/LNormal3.7-5.1CHolmes County [facility] on above:Order Comment: Specimen Type: BLOOD SPECIMENOrdering Facility: [facility] Address:[address] [place], [place] [address]Performed By: #### 31968-2, , 2776-07 ####[facility] LABCLIA [id number]REETSodium [Moles/Vol]135 mmol/LLow 136-144[facility] on above:Order Comment: Specimen Type: BLOOD SPECIMENOrdering Facility: [facility] Address:[address] [place], [place] [address]Performed By: #### 03449-8, , 2776-07 ####[facility] LABIA [id number] STATES OF AMERICAUrea nitrogen [Mass/Vol]7 mg/dL Normal7-21[facility] on above:Order Comment: Specimen Type: BLOOD SPECIMENOrdering Facility: [facility] Address:[address] [place], [place] [address]Performed By: #### 23796-1, , 2776-07 ####[facility] LABCLIA [id number] [address] [facility] AMERICACBC panel Auto (Bld)on 08-19-2024 Erythrocyte distribution width (RBC) [Ratio]14.3 %Ytepuq41.5-15.0[facility] on above:Order Comment: Specimen Type: BLOOD SPECIMENOrdering Facility: [facility] Address:[address] [place], [place] [address]Performed By: #### 55547-4 ####[facility] [id number] [place] [address] [place] AMERICAHematocrit (Bld) [Volume fraction]34.7 %Low36.0-46.0[facility] on above:Order Comment: Specimen Type: BLOOD SPECIMENOrdering Facility: [facility] Address:[address] [place], [place] [address]Performed By: #### 37813-6 ####[facility] [id number] [place] [address] [place] Hemoglobin (Bld) [Mass/Vol]10.4 g/dLLow11.5-15.5CMercy Health [facility] Comment on above:Order Comment: Specimen Type: BLOOD SPECIMENOrdering Facility: [facility] Address:[address] [place] [address] Performed By: #### 61914-1 ####[facility] [id number] [place] [address] [place] MCH (RBC) [Entitic mass]28.6 cmXumkte29.0-34.0[facility] on above:Order Comment: Specimen Type: BLOOD SPECIMENOrdering Facility: [facility] Address:[address] [place] [address] Performed By: #### 74869-3 ####[facility] [id number] [place] [address] [place] MCHC (RBC) [Mass/Vol]30.0 g/dLLow30.5-36.0[facility] on above:Order Comment: Specimen Type: BLOOD SPECIMENOrdering Facility: [facility] Address:[address] [place], [place] [address]Performed By: #### 30395-0 ####[facility] LABCLIA [id number] [place] [address] [place] AMERICAMCV (RBC) [Entitic vol]95.3 zXChhcyu50.0-100.0[facility] on above:Order Comment: Specimen Type: BLOOD SPECIMENOrdering Facility: [facility] Address:[address] [place], [place] [address]Performed By: #### 45563- 2 ####[facility] LABCLIA [id number] [address] STATES AMERICANucleated RBC (Bld) [#/Vol] 10*3/uLNormal<0.01[facility] on above:Order Comment: Specimen Type: BLOOD SPECIMENOrdering Facility: [facility] Address:[address] [place], [place] [address]Performed By: #### 84163-9 ####[facility] [id number] [address] STATES OF AMERICAPlatelet mean volume (Bld) [Entitic vol]10.4 fLNormal9.0-12.7CHolmes County [facility] on above: Order Comment: Specimen Type: BLOOD SPECIMENOrdering Facility: [facility] Address:[address] [place], [place] [address]Performed By: #### 96504- 2 ####[facility] LABCLIA [id number] [place] [address] [place] AMERICAPlatelets (Bld) [#/Vol]254 10*3/oYBdvepp599-126EwqxgxjifUniversity Hospitals Health System on above:Order Comment: Specimen Type: BLOOD SPECIMENOrdering Facility: [facility] Address:[address] [place], [place] [address]Performed By: #### 22030-3 ####[facility] [id number] [place] [address] [place] AMERICARBC (Bld) [#/Vol]3.64 10*6/uLLow 3.90-5.20Wood County HospitalComment on above:Order Comment: Specimen Type: BLOOD SPECIMENOrdering Facility: [facility] Address:[address] [place], [place] [address]Performed By: #### 16704-0 ####[facility] [id number] [place] [id number] [facility] OF AMERICAWBC (Bld) [#/Vol]10.36 10*3/uLNormal3.70-11.00[facility] on above:Order Comment: Specimen Type: BLOOD SPECIMENOrdering Facility: [facility] Address:[address] [place], [place] [address]Performed By: #### 94352-9 ####[facility] [id number] [address] STATES OF AMERICACONSULTon 91-87-7919ZBLULTEOulwfyWvpeaukln Clinic ClevelandCONSULT PROG on 82-72-4051YHBWURC PROGNormalWood County HospitalMagnesium SerPl-mCncon 08-16-7400Jqaymaofb [Mass/Vol]1.3 mg/dLLow1.7-2.3CMercy Health [facility] Comment on above:Order Comment: Specimen Type: BLOOD SPECIMENOrdering Facility: [facility] Address:[address] [place] [address] Performed By: #### 85124-7, 46077-2, 2777-1 ####[facility] LABBRIGHTL[facility] [id number] [place] [id number] [place] STATES OF AMERICANURSING PROGon 03-27-5837UDQLFLL PROGNormalOhiohealth O'Bleness Hospitalveland Phosphate SerPl-mCncon 54-28-9593Hpdewxbdd [Mass/Vol]3.7 mg/dLNormal2.7-4.8 [facility] on above:Order Comment: Specimen Type: BLOOD SPECIMENOrdering Facility: [facility] Address:[address] [place], [place] [address]Performed By: #### 49199-1, 82544-6, 2777-1 ####[facility] LABCLIA [id number] [address] [place] OF AMERICAANES POSTPROC EVALon 18-81-9080HPFL POSTPROC EVAL NormalWood County HospitalANES PRE-OPon 17-63-9530YLBR PRE-OPNormal Wood County HospitalBacteria Bld Culton 11-99-8591Nujrldol identified Cx Nom (Bld)CULTURE, BLOOD: No growth 5 daysNormalCHolmes County [facility] on above:Performed By: #### 600-7 ####[facility] LABCL[facility] [id number] [place] [address] [place] AMERICABasic metabolic 2000 panelon 70-71-2761Tddlr gap [Moles/Vol]10 mmol/LNormal8-15[facility] on above:Order Comment: Specimen Type: BLOOD SPECIMENOrdering Facility: [facility] Address:[address] [place], [place] [address]Performed By: #### 40298-3 ####[facility] LABCL[facility] [id number] [place] [address] [place] Calcium [Mass/Vol]8.5 mg/dLNormal8.5-10.2CHolmes County [facility] on above:Order Comment: Specimen Type: BLOOD SPECIMENOrdering Facility: [facility] Address:[address] [place], [place] [address]Performed By: #### 45306-1 ####[facility] LABCL[facility] [id number] [place] [address] [place] AMERICAChloride [Moles/Vol] 103 mmol/GSkqtxo48-274OapnzghebUniversity Hospitals Health System on above:Order Comment: Specimen Type: BLOOD SPECIMENOrdering Facility: [facility] Address:[address] [place], [place] [address]Performed By: #### 25380-1 ####[facility] [id number] [place] [address] [place] AMERICACO2 [Moles/Vol]27 mmol/LNormal 22-30[facility] on above:Order Comment: Specimen Type: BLOOD SPECIMENOrdering Facility: [facility] Address:[address] [place], [place] [address]Performed By: #### 21821-1 ####[facility] [id number] [address] STATES OF [facility]OSPITALCreatinine [Mass/Vol]0.56 mg/dLLow0.58-0.96[facility] on above:Order Comment: Specimen Type: BLOOD SPECIMENOrdering Facility: [facility] Address:[address] [place], [place] [address]Performed By: #### 86829-8 ####[facility]PITALIA [id number] [address] [place] Creatinine and Glomerular filtration rate.predicted panel (S/P/Bld)121 mL/min/1.73m???Normal>=60[facility] on above:Order Comment: Specimen Type: BLOOD SPECIMENOrdering Facility: [facility] Address:[address] [place], [place] [address]Result Comment: Estimated Glomerular Filtration Rate (eGFR) is calculated using the 2020 CKD-EPI cre atinine equation. This equation utilizes serum creatinine, sex, and age as parameters. The creatinine assay has traceable calibration to isotope dilution- mass spectrometry. Refer to KDIGO guidelines for clinical interpretation. In patients with unstable renal function, e.g. those with acute kidney injury, the eGFR may not accurately reflect actual GFR.Performed By: #### 61948-1 ####[facility] [id number] [place] [address] [place] AMERICAGlucose [Mass/Vol]84 mg/dLNormal 74-99[facility] on above:Order Comment: Specimen Type: BLOOD SPECIMENOrdering Facility: [facility] Address:[address] [place], [place] [address]Result Comment: The [place] Diabetes Association (ADA) provides guidance for cutoff [...] unequivocal hyperglycemia, results should be confirmed by repeattesting. In a patient with classic symptoms of hyperglycemia or hyperglycemic crisis, random plasmaglucose results greater than or equal to 200 mg/dL meet the criteria for diagnosis of diabetes.Reference: Standards of Medical Care in Diabetes 2016, [place] [employer]. Diabetes Care. 2016.39(Suppl 1).Performed By: #### 43370-0 ####[facility] LABCLIA [id number] [place] [address] [place] AMERICAPotassium [Moles/Vol]3.7 mmol/L Normal3.7-5.1CHolmes County [facility] on above:Order Comment: Specimen Type: BLOOD SPECIMENOrdering Facility: [facility] Address:[address] [place], [place] [address]Performed By: #### 36177-0 ####[facility]CL[facility] [id number] [place] [address] [place] AMERICASodium [Moles/Vol]140 mmol/FQnfjjr177-581YezvcvgegUniversity Hospitals Health System on above:Order Comment: Specimen Type: BLOOD SPECIMENOrdering Facility: [facility] Address:[address] [place], [place] [address]Performed By: #### 54264-7 ####[facility] LABCL[facility] [id number] [place] [address] [place] AMERICAUrea nitrogen [Mass/Vol]10 mg/dLNormal7-21[facility] Comment on above:Order Comment: Specimen Type: BLOOD SPECIMENOrdering Facility: [facility] Address:[address] [place] [address] Performed By: #### 21509-2 ####[facility]CL[facility] [id number] [place] [address] [place] CBC panel Auto (Bld)on 42-04-9343Rmzdasgnjlo distribution width (RBC) [Ratio] 14.5 %Uvoaqi96.5-15.0[facility] on above:Order Comment: Specimen Type: BLOOD SPECIMENOrdering Facility: [facility] Address:[address] [place], [place] [address]Performed By: #### 02065-1 ####[facility] [id number] [address] STATES OF [facility] HOSPITALHematocrit (Bld) [Volume fraction]29.6 %Low36.0-46.0[facility] Health Springfieldment on above:Order Comment: Specimen Type: BLOOD SPECIMENOrdering Facility: [facility] Address:[address] [place], [place] [address]Performed By: #### 46004- 2 ####[facility] [id number] [place] [address] [place] AMERICAHemoglobin (Bld) [Mass/Vol]9.6 g/dLLow11.5-15.5CHolmes County [facility] on above:Order Comment: Specimen Type: BLOOD SPECIMENOrdering Facility: [facility] Address:[address] [place], [place] [address]Performed By: #### 99201-8 ####[facility] [id number] [place] [address] [place] AMERICAMCH (RBC) [Entitic mass]28.4 pg Wmrwej88.0-34.0[facility] on above:Order Comment: Specimen Type: BLOOD SPECIMENOrdering Facility: [facility] Address:[address] [place], [place] [address]Performed By: #### 00671-5 ####[facility] LABCLIA [id number] [address]ETMCHC (RBC) [Mass/Vol]32.4 g/dL Vuxeby39.5-36.0[facility] on above:Order Comment: Specimen Type: BLOOD SPECIMENOrdering Facility: [facility] Address:[address] [place], [place] [address]Performed By: #### 12275-8 ####[facility] LABCL[facility] [id number] [address]ETMCV (RBC) [Entitic vol]87.6 fL Ijiusm00.0-100.0[facility] on above:Order Comment: Specimen Type: BLOOD SPECIMENOrdering Facility: [facility] Address:[address] [place], [place] [address]Performed By: #### 20726-0 ####[facility] LABCLIA [id number] [address]ETucleated RBC (Bld) [#/Vol] 10*3/uLNormal<0.01[facility] on above:Order Comment: Specimen Type: BLOOD SPECIMENOrdering Facility: [facility] Address:[address] [place], [place] [address]Performed By: #### 47303-5 ####[facility] LABCL[facility] [id number] [address]REETPlatelet mean volume (Bld) [Entitic vol]10.3 fLNormal9.0-12.7CHolmes [facility] on above: Order Comment: Specimen Type: BLOOD SPECIMENOrdering Facility: [facility] Address:[address] [place], [place] [address]Performed By: #### 97248- 2 ####[facility]CL[facility] [id number] [address] [address] [place] AMERICAPlatelets (Bld) [#/Vol]274 10*3/rUQacroi844-420RheqezysyUniversity Hospitals Health System on above:Order Comment: Specimen Type: BLOOD SPECIMENOrdering Facility: [facility] Address:[address] [place], [place] [address]Performed By: #### 52544-4 ####[facility] LABCL[facility] [id number] [place] [id number] [facility] OF AMERICARB (Bld) [#/Vol]3.38 10*6/uLLow 3.90-5.20[facility] on above:Order Comment: Specimen Type: BLOOD SPECIMENOrdering Facility: [facility] Address:[address] [place], [place] [address]Performed By: #### 23012-4 ####[facility] [id number] [address] OF AMERICAWBC (Bld) [#/Vol]6.27 10*3/uLNormal3.70-11.00[facility] on above:Order Comment: Specimen Type: BLOOD SPECIMENOrdering Facility: [facility] Address:[address] [place], [place] [address]Performed By: #### 39828-6 ####[facility] [id number] [place] [id number] [place] AMERICACONSULTon 31-03-2978CNOECEUAgdnkrDjsnuwpgx Clinic ClevelandCONSULT PROG on 50-50-0291MLIQCLM PROGNormalWood County HospitalCONLT PROGNormal Wood County HospitalOPERATIVE NOon 53-36-7113GTPIRXNGT NONormalWood County HospitalPathology biopsy report Eliu (Tiss)on 44-54-5487IBKEOGMB 1:Normal [facility] on above:Order Comment: Specimen Type: TISSUE SPECIMENOrdering Facility: [facility] Address: [address] [place], [place] [address]Result Comment: AFB and GMS stains performed on blocks A13 and A16 are negative for acid fast bacteria and fungal organisms, respectively. All controls are adequate.Addendum electronically signed by Karoline Dukes MD on 08/29/2024 at 1309 ESTPerformed By: #### 69532-9 ####[facility] LABCLIA [id number] [address] [address] [facility] CENTERCASE REPORTNoRiverside Methodist Hospital on above: Order Comment: Specimen Type: TISSUE SPECIMENOrdering Facility: [facility] Address: [address] [place], [place] [address]Result Comment: Surgical Pathology Report Case: [id number] Provider: Elsy Rousseau DO Collected: 08/18/2024 02:46 PMOrdering Location: Admitting Received: 08/18/2024 05:47 PMPathologist: Karoline Dukes MDSpecimen: Colon and Small Bowel, Right Hemicolectomy, distal small bowel and part of ascending colonPerformed By: #### 81505-7 ####[facility] LABCLIA [id number] [place] [address] [facility] CENTERCLINICAL HISTORYNormal [facility] on above:Order Comment: Specimen Type: TISSUE SPECIMENOrdering Facility: [facility] Address: [address] [place], [place] [address]Result Comment: Pre-op diagnosis:Crohn's disease (HCC) [K50.90]Performed By: #### 77271-3 ####[facility] LABCLIA [id number] [address] [address] [facility] DIAGNOSIS COMMENTNoRiverside Methodist Hospital on above:Order Comment: Specimen Type: TISSUE SPECIMENOrdering Facility: [facility] Address: [address] [place], [place] [address]Performed By: #### 12366-6 ####[facility]CL[facility] [id number] [address] [place] [address] [facility] CENTERFINAL DIAGNOSISNormalCHolmes County [facility] on above:Order Comment: Specimen Type: TISSUE SPECIMENOrdering Facility: [facility] Address: [address] [place], [place] [address]Result Comment: Distal small bowel and part of ascending colon, right hemicolectomy:- Chronic active colitis with ulcer, extensive pyloric gland metaplasia, granulomas and transmural lymphoid aggregates, negative for dysplasia. See comment.- One lymph node, negative for neoplasm (0/1). at 1151 EST Performed By: #### 12645-6 ####[facility] LABCLIA [id number] [address] [address] [facility] FINAL [facility] LABNoalCHolmes County [facility]omerene [facility] on above:Order Comment: Specimen Type: TISSUE SPECIMENOrdering Facility: [facility] Address: [address] [place], [place] [address]Result Comment: Diagnostic interpretation performed at: [facility], [address] [place] [address] CLIA# [id number] Director: Krunal Morganformed By: #### 78467-3 ####[facility] LABCL[facility] [id number] [address] [address] [facility] OF [facility]OSPITALGROSS DESCRIPTIONNormBluffton Hospital on above:Order Comment: Specimen Type: TISSUE SPECIMENOrdering Facility: [facility] Address: [address] [place] [address]Mpckut Comment: A. Colon and Small Bowel, Right HemicolectomyReceived in formalin labeled as colonand small bowel, right hemicolectomy, distal small bowel and part of ascending colon is 50 cm in le ngth x 1.1-4 cm in circumference segment of small bowel anastomosed to a 2 cm in length x 3 cm in circumference segment of colon. The anastomotic site is intact, without exudate or fistula tract. Thesmall bowel mesenteric fat is thickened and extends [...] 4 cm from the proximal resection margin a nd 40 cm from the distal resection margin. [...] is inked greenRepresentative sections are submitted as follows:Mailing Machine Operator sections from distal to proximal as follows:A1- proximal and distal margins, perpendicularA2- account representative sections of the colonA3- anastomotic siteA4-A6- fourth stricture, account representative sectionsA7- area between stricture #4 and stricture #3J9-I47- third stricture, account representative eckykynpD77-arcq between stricture #3 and stricture #8W77-Y15- second stricture, account representative vbfwtcgiV08- area between stricture #2 and stricture #5C34-V85- stricture #1, account representative ibetxxbmG07- account representative section of small bowel 3 cm from the proximal hxansfR59- account representative lymph nodesPerformed By: #### 48240-9 ####[facility]IGHT[facility] [id number] [address] [facility]OSPITALXR ABDOMEN 1V SUPINEon 41-47-9338TI ABDOMEN 1V SUPINENormCincinnati Shriners HospitalCONSULTon 96-58-5487FJEQTJDSdwwazUovbaovdv Clinic ClevelandCT ENTEROGRAPHY W IVCONon 83-03-5415FR ENTEROGRAPHY W IVCONNormalWood County HospitalED NOTEon 08-97-7249XP NOTEHNO ID: [id number] Author: RENO LOYOLA RN Service: Emergency Medicine Author Type: Registered Nurse Type: ED Notes Filed: 08/17/2024 10:52 Note Text: Admitting provider at bedside discussing NG tube placement. Pt refusing at this time.NormalMetroHealth [facility] NOTENormProvidence Hospital PROV NOTEon 59-19-3300[place] PROV NOTENoMagruder HospitalHCG Preg Ur Ql on 04-66-0943LEN ( test) Ql (U)NegativeNormalNegativeWood County HospitalComment on above:Order Comment: Specimen Type: URINE SPECIMENOrdering Facility: [facility] Address:[address] [place], [place] [address]Result Comment: This test is intended to aid in the early detection of . Very dilute urinesamples, as indicated by a low specific gravity, may not contain account representative levels of hCG. Thistest detects intact hCG only. This test does [...] for interference by human anti-mouse antibodies (HAMA) inthe specimen. The test provides a presumptive diagnosis for .Performed By: #### 2106-3 ####[facility] LABCLIA [id number] [address] STATES OF [place] HISTORY PHYSICALon 08-45-5863BVCWSBL PHYSICALNoMagruder Hospital NURSING PROGon 34-93-5983JSAEUIA PROGNormalWood County HospitalPT panel Coag (PPP)on 07-80-7014MZD Coag (PPP) [Relative time]1.1 {INR}Normal0.9-1.3 [facility] on above:Order Comment: Specimen Type: BLOOD SPECIMENOrdering Facility: [facility] Address:[address] [address] [place], [place] [address]Result Comment: Vitamin K Antagonist (VKA) Therapeutic Range: INR 2 to 3 (Target INR of 2.5)Note: For patients treated with VKA drugs, such as warfarin, the [place] [employer] 2012 Guideline recommends a therapeutic INR range of 2 to 3 (target INR of 2.5). This recommendation inclu ronit high-risk patients with antiphospholipid syndrome with previous arterial or venous thromboembolism, current-generation mechanical or bioprosthetic aortic heart valve replacement.Note: Patients with mechanical aortic valve replacement and additional risk factors for thromboembolic events (atrialfibrillation, previous thromboembolism, LV dysfunction, hypercoagulable conditions) or an older generation mechanical AVR (i.e., ball in-Cage) or any mechanical MVR should have a INR therapeutic range of 2.5 to 3.5 (target INR of 3).Brie FAROOQ, et al. Chest 2012, 141:7S-47SNishimricha RA, et al. JAC 2017, 70: 252-289 Performed By: #### 47723-0, 64600-6 ####[facility] [id number] [place] [address] [place] PT Coag (PPP) [Time]11.4 sNormal9.7-13.0[facility] on above:Order Comment: Specimen Type: BLOOD SPECIMENOrdering Facility: [facility] Address:[address] [place], [place] [address]Performed By: #### 47435-2, 76278-7 ####[facility] [id number] [place] [address] [place] AMERICATYPE + SCREENon 09-96-3892OJKPJlfvzlUqxkpdwneHolmes County [facility] on above:Order Comment: Specimen Type: BLOOD SPECIMENOrdering Facility: [facility] Address:[address], [place] [address]Performed By: #### TSCR ####CC MAIN BLOOD BANKCLIA [id number] [place] [id number] [place] [facility] HOSPITALRh Nom (Bld)NegativeNormalCHolmes County [facility] on above:Order Comment: Specimen Type: BLOOD SPECIMENOrdering Facility: [facility] Address:[address] [place], [place] [address]Performed By: #### TSCR ####[facility] BLOOD BANKCLIA [id number] [place] [id number] [place] [facility] HOSPITALTYPE AND SCREEN EXPIRATION 08/20/2024 23:59NormalClevelWayne HealthCare Main [facility] on above:Order Comment: Specimen Type: BLOOD SPECIMENOrdering Facility: [facility] Address:[address] [place], [place] [address]Performed By: #### TSCR ####[facility] BLOOD BANKCLIA [id number] [place] [id number] [facility] CENTERaPTT PPPon 65-28-8524qKIS Coag (PPP) [Time]27.2 sNormal 23.0-32.4CHolmes County [facility] on above:Order Comment: Specimen Type: BLOOD SPECIMENOrdering Facility: [facility] Address:[address] [place], [place] [address]Performed By: #### 81711-5, 41373-6 ####[facility] LABCL[facility] [id number] [place] [id number] [facility] CENTERCB W Auto Differential panel (Bld)on 08-16-2024 Basophils (Bld) [#/Vol]0.03 10*3/uLNormal<0.11CHolmes County [facility] on above:Order Comment: Specimen Type: BLOOD SPECIMENOrdering Facility: [facility] Address:[address] [place] [address] Performed By: #### 4537-7, 98726-9 ####[facility] LABCLIA [id number] [facility] [place] [address] [place] Basophils/100 WBC (Bld)0.3 %NormalUniversity Hospitals Health System on above: Order Comment: Specimen Type: BLOOD SPECIMENOrdering Facility: [facility] Address:[address] [place], [place] [address]Performed By: #### 4537- 7, 67447-3 ####[facility] LABCLIA [id number] [facility] [place] [address] [place] AMERICADifferential cell count method Nom (Bld)AutoNormalCHolmes County Joel [facility] on above:Order Comment: Specimen Type: BLOOD SPECIMENOrdering Facility: [facility] Address:[address] [place], [place] [address]Performed By: #### 4537- 7, 52664-5 ####[facility] LABIA [id number] [facility] [place] [address] [place] AMERICAEosinophils (Bld) [#/Vol]0.18 10*3/uLNormal<0.46[facility] on above:Order Comment: Specimen Type: BLOOD SPECIMENOrdering Facility: [facility] Address:[address] [place], [place] [address]Performed By: #### 4537- 7, 94918-4 ####[facility] LABIA [id number] [facility] [place] [address] [place] AMERICAEosinophils/100 WBC (Bld)1.5 %NormalUniversity Hospitals Health System on above:Order Comment: Specimen Type: BLOOD SPECIMENOrdering Facility: [facility] Address:[address] [place], [place] [address]Performed By: #### 4537-7, 16615-5 ####[facility] LABIA [id number] [facility] [place] [address] [place] AMERICAErythrocyte distribution width (RBC) [Ratio]14.7 %Naxsvf43.5-15.0[facility] on above: Order Comment: Specimen Type: BLOOD SPECIMENOrdering Facility: [facility] Address:[address] [place], [place] [address], [place] [address]Performed By: #### 4537- 7, 05097-6 ####[facility] LABCLIA [id number] [place] [address] [place] AMERICAHematocrit (Bld) [Volume fraction]34.9 %Low36.0-46.0[facility] on above:Order Comment: Specimen Type: BLOOD SPECIMENOrdering Facility: [facility] Address:[address] [place], [place] [address]Performed By: #### 4537- 7, 66715-1 ####[facility] LABCLIA [id number] [facility] [place] [address] [place] AMERICAHemoglobin (Bld) [Mass/Vol]11.5 g/nGBywksn08.5-15.5CHolmes County [facility] on above: Order Comment: Specimen Type: BLOOD SPECIMENOrdering Facility: [facility] Address:[address] [place], [place] [address]Performed By: #### 4537- 7, 37145-3 ####[facility] LABCLIA [id number] [facility] [place] [address] [place] AMERICAImmature granulocytes (Bld) [#/Vol]0.06 10*3/uLNormal<0.10[facility] on above: Order Comment: Specimen Type: BLOOD SPECIMENOrdering Facility: [facility] Address:[address] [place], [place] [address], [place] [address]Performed By: #### 4537- 7, 11161-7 ####[facility] LABCLIA [id number] [facility] [place] [address] [place] AMERICAImmature granulocytes/100 WBC (Bld)0.5 %NormalUniversity Hospitals Health System on above: Order Comment: Specimen Type: BLOOD SPECIMENOrdering Facility: [facility] Address:[address] [place], [place] [address]Performed By: #### 4537- 7, 99508-6 ####[facility] LABCLIA [id number] [facility] CENTERLID AV ENWASHINGTON [place] [address] [place] AMERICALymphocytes (Bld) [#/Vol]1.24 10*3/uLNormal1.00-4.00[facility] on above: Order Comment: Specimen Type: BLOOD SPECIMENOrdering Facility: [facility] Address:[address] [place], [place] [address]Performed By: #### 4537- 7, 75966-4 ####[facility] LABCLIA [id number] [facility] [place] [address] [place] AMERICALymphocytes/100 WBC (Bld)10.5 %NormalUniversity Hospitals Health System on above:Order Comment: Specimen Type: BLOOD SPECIMENOrdering Facility: [facility] Address:[address] [place], [place] [address]Performed By: #### 4537-7, 39666-8 ####[facility] LABCLIA [id number] [facility]INICD [address] (RBC) [Entitic mass]28.8 pg Srwdtc40.0-34.0[facility] on above:Order Comment: Specimen Type: BLOOD SPECIMENOrdering Facility: [facility] Address:[address] [place], [place] [address]Performed By: #### 4537-7, 79482-4 ####[facility] LABCLIA [id number] [address] (RBC) [Mass/Vol]33.0 g/dL Ypszkd20.5-36.0[facility] on above:Order Comment: Specimen Type: BLOOD SPECIMENOrdering Facility: [facility] Address:[address] [place], [place] [address]Performed By: #### 4537-7, 10349-7 ####[facility] LABCL[facility] [id number] [place] [address] [place] AMERICAMCV (RBC) [Entitic vol]87.5 fL Zmghgt56.0-100.0[facility] on above:Order Comment: Specimen Type: BLOOD SPECIMENOrdering Facility: [facility] Address:[address] [place], [place] [address]Performed By: #### 4537-7, 34794-0 ####[facility] LABCL[facility] [id number] [place] [address] [place] AMERICAMonocytes (Bld) [#/Vol]0.96 10*3/uLHigh<0.87[facility] on above:Order Comment: Specimen Type: BLOOD SPECIMENOrdering Facility: [facility] Address:[address] [place], [place] [address]Performed By: #### 4537-7, 63305-2 ####[facility] LABCLIA [id number] [place] [address] [place] AMERICAMonocytes/100 WBC (Bld)8.1 % NormalUniversity Hospitals Health System on above:Order Comment: Specimen Type: BLOOD SPECIMENOrdering Facility: [facility] Address:[address] [place], [place] [address]Performed By: #### 4537-7, 79077-8 ####[facility] LABIA [id number] [place] [address] [place] AMERICANeutrophils (Bld) [#/Vol]9.35 10*3/uLHigh1.45-7.50 [facility] on above:Order Comment: Specimen Type: BLOOD SPECIMENOrdering Facility: [facility] Address:[address] [place], [place] [address]Performed By: #### 4537-7, 03074-9 ####[facility] LABCLIA [id number] [place] [address] [place] AMERICANeutrophils/100 WBC (Bld)79.1 %NormalWood County Hospital Comment on above:Order Comment: Specimen Type: BLOOD SPECIMENOrdering Facility: [facility] Address:[address] [place] [address] Performed By: #### 4537-7, 06290-3 ####[facility] LABIA [id number] [place] [address] [place] Nucleated RBC (Bld) [#/Vol]10*3/uLNormal<0.01[facility]Comup [facility] on above:Order Comment: Specimen Type: BLOOD SPECIMENOrdering Facility: [facility] Address:[address] [place] [address] Performed By: #### 4537-7, 61188-2 ####[facility]ITALIA [id number] [place] [address] [place] Nucleated RBC/100 WBC (Bld) [Ratio]0.0 /100 WBCNormalCMercy Health Urbana Hospital Comment on above:Order Comment: Specimen Type: BLOOD SPECIMENOrdering Facility: [facility] Address:[address] [place] [address] Performed By: #### 4537-7, 51295-2 ####[facility] LAB[facility] [id number] [place] [address] [place] Platelet mean volume (Bld) [Entitic vol]9.9 fLNormal9.0-12.7CMercy Health Urbana HospitalComup health system on above:Order Comment: Specimen Type: BLOOD SPECIMENOrdering Facility: [facility] Address:[address] [place], [place] [address]Performed By: #### 4537-7, 21756-9 ####[facility] LABIA [id number] [place] [address] [place] Platelets (Bld) [#/Vol]341 10*3/bJHcoxsp277-764VtlupckrjUniversity Hospitals Health System on above:Order Comment: Specimen Type: BLOOD SPECIMENOrdering Facility: [facility] Address:[address] [place] [address] Performed By: #### 4537-7, 43564-2 ####[facility]CL[facility] [id number] [place] [address] [place] RBC (Bld) [#/Vol]3.99 10*6/uLNormal3.90-5.20[facility] on above:Order Comment: Specimen Type: BLOOD SPECIMENOrdering Facility: [facility] Address:[address] [place], [place] [address]Performed By: #### 4537-7, 21083-4 ####[facility] LABCL[facility] [id number] [place] [address] [place] AMERICAWBC (Bld) [#/Vol]11.82 10*3/uLHigh3.70-11.00[facility] on above:Order Comment: Specimen Type: BLOOD SPECIMENOrdering Facility: [facility] Address:[address] [place], [place] [address]Performed By: #### 4537-7, 57567-1 ####[facility]CL[facility] [id number] [place] [address] [place] AMERICACRP SerPl-mCncon 31-27-6620GFB [Mass/Vol]3.8 mg/dLHigh<0.9CHolmes [facility] on above:Order Comment: Specimen Type: BLOOD SPECIMENOrdering Facility: [facility] Address:[address] [place], [place] [address]Performed By: #### 44312- 8, 3040-3, 46260-4, 1987- ####[facility] LABCLIA [id number] [place] [id number] [place] [address] [place] Comprehensive metabolic 2000 panelon 25-87-9855Wlaxawn [Mass/Vol]3.6 g/dLLow 3.9-4.9CHolmes [facility] on above:Order Comment: Specimen Type: BLOOD SPECIMENOrdering Facility: [facility] Address:[address] [place], [place] [address]Performed By: #### 59485-9, 3039-3, , 1987-11 ####[facility] LABCLIA [id number] [place] [address] [place] AMERICAALP [Catalytic activity/Vol]81 U/CMinpfm13-562CxfqytnjyUniversity Hospitals Health System on above:Order Comment: Specimen Type: BLOOD SPECIMENOrdering Facility: [facility] Address:[address] [place], [place] [address]Performed By: #### 93704-0, 3039-3, , 1987-11 ####[facility]CL[facility] [id number] [place] [address] [place] AMERICAALT [Catalytic activity/Vol]21 U/LNormal7-38[facility] on above:Order Comment: Specimen Type: BLOOD SPECIMENOrdering Facility: [facility] Address:[address] [place], [place] [address]Performed By: #### 97975- 8, 3039-3, , 1987-11 ####[facility] LABCLIA [id number] [place] [id number] [place] AMERICAAnion gap [Moles/Vol]12 mmol/LNormal8-15[facility] on above: Order Comment: Specimen Type: BLOOD SPECIMENOrdering Facility: [facility] Address:[address] [place], [place] [address]Performed By: #### 31311- 8, 3039-3, , 1987-11 ####[facility] LABCLIA [id number] [place] [address] [place] AMERICAAST [Catalytic activity/Vol]14 U/WKknnfm15-48AzhjvshdpUniversity Hospitals Health System on above:Order Comment: Specimen Type: BLOOD SPECIMENOrdering Facility: [facility] Address:[address] [place], [place] [address]Performed By: #### 51134-8, 3039-3, , 1987-11 ####[facility]CLIA [id number] [place] [address] [place] Bilirubin [Mass/Vol]0.2 mg/dLNormal0.2-1.3CHolmes [facility] on above:Order Comment: Specimen Type: BLOOD SPECIMENOrdering Facility: [facility] Address:[address] [place], [place] [address]Performed By: #### 51002-7, 3, , 1987-11 ####[facility] [id number] [place] [address] [place] Calcium [Mass/Vol]8.7 mg/dLNormal8.5-10.2CHolmes [facility] on above:Order Comment: Specimen Type: BLOOD SPECIMENOrdering Facility: [facility] Address:[address] [place], [place] [address]Performed By: #### 74490-7, 3, , 1987-11 ####[facility]CL[facility] [id number] [place] [address] [place] Chloride [Moles/Vol]101 mmol/VViojsg24-395VgnccvbqiUniversity Hospitals Health System on above:Order Comment: Specimen Type: BLOOD SPECIMENOrdering Facility: [facility] Address:[address] [place], [place] [address]Performed By: #### 41460-2, 3039-3, , 1987-11 ####[facility]CL[facility] [id number] [place] [address] [place] CO2 [Moles/Vol]25 mmol/CPhbtbh61-80MfhduqwqrUniversity Hospitals [facility] on above: Order Comment: Specimen Type: BLOOD SPECIMENOrdering Facility: [facility] Address:[address] [place], [place] [address]Performed By: #### 57131- 8, 0-3, , 1987-11 ####[facility] [id number] [place] [address] [place] Creatinine [Mass/Vol]0.42 mg/dLLow0.58-0.96[facility] on above:Order Comment: Specimen Type: BLOOD SPECIMENOrdering Facility: [facility] Address:[address] [place], [place] [address]Performed By: #### 68480-5, 3, , 1987-11 ####[facility] [id number] [place] [address] [place] Creatinine and Glomerular filtration rate.predicted panel (S/P/Bld)130 mL/min/1.73m???Normal>=60[facility] on above:Order Comment: Specimen Type: BLOOD SPECIMENOrdering Facility: [facility] Address:[address] [place], [place] [address]Result Comment: Estimated Glomerular Filtration Rate (eGFR) is calculated using the 2020 CKD-EPI cre atinine equation. This equation utilizes serum creatinine, sex, and age as parameters. The creatinine assay has traceable calibration to isotope dilution- mass spectrometry. Refer to KDIGO guidelines for clinical interpretation. In patients with unstable renal function, e.g. those with acute kidney injury, the eGFR may not accurately reflect actual GFR.Performed By: #### 30034-7, 3, , 1987-11 ####[facility] LABCLIA [id number] [place] [id number] [place] AMERICAGlucose [Mass/Vol]94 mg/pMQgqcvd50-99UujyibgpwUniversity Hospitals Health System on above:Order Comment: Specimen Type: BLOOD SPECIMENOrdering Facility: [facility] Address:[address] [place], [place] [address]Result Comment: The [place] [employer] (ADA) provides guidance for cutoff [...] symptoms of hyperglycemia or hyperglycemic crisis, random plasmaglucose results greater than or equal to 200 mg/dL meet the criteria for diagnosis of diabetes.Reference: Standards of Medical Care in Diabetes 2016, [place] [employer]. Diabetes Care. 2016.39(Suppl 1). Performed By: #### 59888-3, 3039-3, , 1987-11 ####[facility] LABIA [id number] [place] [id number] [place] AMERICAPotassium [Moles/Vol]4.0 mmol/LNormal3.7-5.1CHolmes [facility] on above:Order Comment: Specimen Type: BLOOD SPECIMENOrdering Facility: [facility] Address:[address] [place], [place] [address]Performed By: #### 20913-2, 3039-3, , 1987-11 ####[facility] LABCLIA [id number] [place] [id number] [place] AMERICAProtein [Mass/Vol]6.8 g/dLNormal6.3-8.0[facility] on above:Order Comment: Specimen Type: BLOOD SPECIMENOrdering Facility: [facility] Address:[address] [place], [place] [address]Performed By: #### 85094-7, 304-3, , 1987-11 ####[facility] LABCLIA [id number] [place] [id number] [place] AMERICASodium [Moles/Vol]138 mmol/GVanzsr950-432WzrxwspdtUniversity Hospitals Health System on above:Order Comment: Specimen Type: BLOOD SPECIMENOrdering Facility: [facility] Address:[address] [place], [place] [address]Performed By: #### 60728-1, 3039-3, , 1987-11 ####[facility] LABCLIA [id number] [place] [id number] [place] AMERICAUrea nitrogen [Mass/Vol]13 mg/dL Normal7-21[facility] on above:Order Comment: Specimen Type: BLOOD SPECIMENOrdering Facility: [facility] Address:[address] [place], [place] [address]Performed By: #### 29297-2, 3039-3, , 1987-11 ####[facility] LABIA [id number] [place] [address] [place] AMERICAED NOTEon 32-54-1059MQ NOTEHNO ID: [id number] Author: EDA GUZMAN CT Service: ? Author Type: Clinical Chinese Teacher Type: ED Notes Filed: 08/16/2024 22:50 Note Text: Pt declined updating vsNoOhioHealth Gr[facility] Triage Noteon 53-09-0823VK Triage NoteZanesville City HospitalESR Westergren method (Bld) [Velocity]on 68-03-0377VPC (Bld) [Velocity]37 mm/hHigh0-20[facility] on above:Order Comment: Specimen Type: BLOOD SPECIMENOrdering Facility: [facility] Address:[address] [place], [place] [address]Performed By: #### 4537-7, 04826-6 ####[facility] LABCLIA [id number] [place] [id number] [place] AMERICALipase SerPl-cCncon 98-58-3052Tzssht [Catalytic activity/Vol]30 U/LNormal 16-61[facility] on above:Order Comment: Specimen Type: BLOOD SPECIMENOrdering Facility: [facility] Address:[address] [place], [place] [address]Performed By: #### 26074-0, 3039-3, , 1987-11 ####[facility] LABCLIA [id number] [place] [address] [place] AMERICAMagnesium SerPl-mCncon 08-16-2024 Magnesium [Mass/Vol]2.0 mg/dLNormal1.7-2.3CHolmes [facility] on above:Order Comment: Specimen Type: BLOOD SPECIMENOrdering Facility: [facility] Address:[address] [place], [place] [address]Performed By: #### 45893-0, 3, , 1987-11 ####[facility] LABCLIA [id number] [address] [place] Alanine aminotransferase [Enzymatic activity/volume] in Serum or PlasmaOrdered By: Maru Maguire on 14-16-1845SPC [Catalytic activity/Vol]Alanine aminotransferase [Enzymatic activity/volume] in Serum or Plasma7-[facility] Medical CenterAlbumin [Mass/volume] in Serum or Plasma by Bromocresol green (BCG) dye binding methoOrdered By: Maru Maguire on 94-57-0477Gezagty BCG dye [Mass/Vol] Albumin [Mass/volume] in Serum or Plasma by Bromocresol green (BCG) dye binding metho3.5-5.7FWilson HealthAlkaline phosphatase [Enzymatic activity/volume] in Serum or PlasmaOrdered By: Maru Maguire on 77-24-1707VPH [Catalytic activity/Vol]Alkaline phosphatase [Enzymatic activity/volume] in Serum or Xvdfcd35-851TsfmmqkcaUniversity Hospitals Beachwood Medical CenterAspartate aminotransferase [Enzymatic activity/volume] in Serum or PlasmaOrdered By: Maru Maguire on 90-03-6958VMG [Catalytic activity/Vol]Aspartate aminotransferase [Enzymatic activity/volume] in Serum or Aeakki44-40JpbeodfozUniversity Hospitals Beachwood Medical Center Bilirubin.total [Mass/volume] in Serum or PlasmaOrdered By: Maru Maguire on 58-65-6030Qjperafem [Mass/Vol]Bilirubin.total [Mass/volume] in Serum or Plasma Low0.3-1.0[facility] Medical CenterCalcium [Mass/volume] in Serum or PlasmaOrdered By: Maru Maguire on 28-39-5059Squcfuq [Mass/Vol]Calcium [Mass/volume] in Serum or Plasma8.6-10.3FWilson HealthCarbon dioxide, total [Moles/volume] in Serum or PlasmaOrdered By: Maru Maguire on 62-71-4620NM0 [Moles/Vol]Carbon dioxide, total [Moles/volume] in Serum or Plasma 21.0-31.0[facility] Medical CenterChloride [Moles/volume] in Serum or PlasmaOrdered By: Maru Maguire on 00-79-2174Fhhcpemj [Moles/Vol]Chloride [Moles/volume] in Serum or Tvqyti60-238MyezkeggoUniversity Hospitals Beachwood Medical Center Comprehensive Metabolic Panelon 62-47-8063Hmwrzdz [Mass/Vol]3.6 g/dLNormal 3.5-5.7The [facility] Physician GroupComment on above:Performed By: #### CMP, CBCNO, MG, TRIG #### [facility] [address] [place] [address] USAAlbumin/Globulin [Mass ratio]1.2 {ratio}NormalThe [facility] Physician GroupComment on above:Performed By: #### CMP, CBCNO, MG, TRIG #### [facility] [address] [place] [address] USAALP [Catalytic activity/Vol]72 U/HVpoagd06-524Dnf [facility] Physician GroupComment on above:Performed By: #### CMP, CBCNO, MG, TRIG #### [facility] [address] [place] [id number] [place]ALT [Catalytic activity/Vol]20 U/LNormal7-52[facility] [facility] GroupComment on above:Performed By: #### CMP, CBCNO, MG, TRIG #### [facility] [address] [place] [address] USAAnion gap [Moles/Vol]11.0 mmol/LNormal6.0-15.0The [facility]ician GroupComment on above:Performed By: #### CMP, CBCNO, MG, TRIG #### [facility] [address] [place] [address] USAAST [Catalytic activity/Vol]13 U/FRlwjnp73-60Luj [facility]ician GroupComment on above:Performed By: #### CMP, CBCNO, MG, TRIG #### [facility] [address] [place] [address] USABilirubin [Mass/Vol]0.1 mg/dLLow0.3-1.0The [facility]ician GroupComment on above:Performed By: #### CMP, CBCNO, MG, TRIG #### [place] [address] USACalcium [Mass/Vol]8.8 mg/dLNormal8.6-10.3The [facility]ician GroupComment on above:Performed By: #### CMP, CBCNO, MG, TRIG #### [place] [address] USAChloride [Moles/Vol]105 mmol/RMosxhm32-308Vxm [facility]ician GroupComment on above:Performed By: #### CMP, CBCNO, MG, TRIG #### [place] [address] USACO2 [Moles/Vol]26.3 mmol/QKlanuv21.0-31.0The [facility]ician GroupComment on above:Performed By: #### CMP, CBCNO, MG, TRIG #### [facility] [address] [place] [address] USACreatinine [Mass/Vol]0.45 mg/dLLow0.60-1.20The [facility]ician GroupComment on above:Performed By: #### CMP, CBCNO, MG, TRIG #### [place] [address] USAGFR/1.73 sq M.predicted MDRD (S/P/Bld) [Vol rate/Area] mL/min/{1.73_m2}NormalThe [facility]ician GroupComment on above:Performed By: #### CMP, CBCNO, MG, TRIG #### [facility] [address] [place] [address] USAGlobulin (S) [Mass/Vol]3.1 g/dLNormalThe [facility] GroupComment on above:Performed By: #### CMP, CBCNO, MG, TRIG #### [facility] [address] [place] [address] USAGlucose [Mass/Vol]85 mg/wOBubcyo04-568Ipi [facility]ician GroupComment on above:Result Comment: Random Glucose Reference Range is dependent on time and content of last meal. Glucose of more than 200 mg/dL in a nonstressed, ambulatory subject supports the diagnosis of Diabetes Mellitus. ADA recommended reference rangePerformed By: #### CMP, CBCNO, MG, TRIG #### [facility] [address] [place] [address] USAPotassium [Moles/Vol]4.3 mmol/LNormal3.5-5.1The [facility] GroupComment on above:Performed By: #### CMP, CBCNO, MG, TRIG #### [facility] [address] [place] [address] USAProtein [Mass/Vol]6.7 g/dLNormal6.4-8.9The [facility]ician GroupComment on above:Performed By: #### CMP, CBCNO, MG, TRIG #### [facility] [address] [place] [address] USASodium [Moles/Vol]138 mmol/PIfirfg088-563Aaj [facility]ician GroupComment on above:Performed By: #### CMP, CBCNO, MG, TRIG #### [facility] [address] [place] [address] USAUrea nitrogen [Mass/Vol]23 mg/dLNormal7-25The [facility]ician GroupComment on above:Performed By: #### CMP, CBCNO, MG, TRIG #### [facility] [address] [place] [address] USACreatinine [Mass/volume] in Serum or PlasmaOrdered By: Maru Maguire on 15-55-5687Ihsqfgyqev [Mass/Vol]Creatinine [Mass/volume] in Serum or PlasmaLow0.60-1.20[facility] Medical CenterErythrocyte distribution width Auto (RBC) [Ratio]Ordered By: Maru Maguire on 54-54-3894Okfipvdluyq distribution width (RBC) [Ratio]Erythrocyte distribution width [Ratio] by Automated sktzkHxpf36.9-15.3FWilson HealthGlobulin Calc (S) [Mass/Vol]Ordered By: Maru Maguire on 77-53-9197Epjxgayd (S) [Mass/Vol]Serum globulin measurement by calculation (mass/volume)[facility] Medical CenterGlucose [Mass/volume] in Serum or PlasmaOrdered By: Maru Maguire on 13-76-8780Jrcbivo [Mass/Vol]Glucose [Mass/volume] in Serum or Lsmcgv05-016 [facility] Medical CenterComment on above:ADA recommended reference rangeRandom Glucose Reference Range is dependent on time and content of last meal. Glucose of more than 200 mg/dL in a nonstressed, ambulatory subject supports the diagnosisof Diabetes Mellitus.Hematocrit Auto (Bld) [Volume fraction]Ordered By: Maru Maguire on 33-12-3759Skifncknhi (Bld) [Volume fraction] Hematocrit [Volume Fraction] of Blood by Automated okaaqNui31.0-46.4FWilson HealthHemoglobin [Mass/volume] in BloodOrdered By: Maru Maguire on 12-70-7912Ukracuagsu (Bld) [Mass/Vol]Hemoglobin [Mass/volume] in BloodLow 11.8-15.4FWilson HealthHemogram CBC Without Diffon 08-14-2024 Erythrocyte distribution width (RBC) [Ratio]15.8 %High11.9-15.3The [facility]ician GroupComment on above:Performed By: #### CMP, CBCNO, MG, TRIG #### [facility] [address] [place] [address] USAHematocrit (Bld) [Volume fraction]31.9 %Low34.0-46.4The [facility]ician GroupComment on above:Performed By: #### CMP, CBCNO, MG, TRIG #### [place] [address] USAHemoglobin (Bld) [Mass/Vol]10.6 g/dLLow11.8-15.4The [facility] GroupComment on above:Performed By: #### CMP, CBCNO, MG, TRIG #### [place] [address] USAMCH (RBC) [Entitic mass]28.6 isUnctqr39.7-34.3The [facility] GroupComment on above:Performed By: #### CMP, CBCNO, MG, TRIG #### [place] [address] USAMCV (RBC) [Entitic vol]86.6 kAPnizoi01-622Ikw [facility]ician GroupComment on above:Performed By: #### CMP, CBCNO, MG, TRIG #### [place] [address] USAMean Corpuscular HGB Conc33.1 g/sONctssk73.0-35.0The [facility]ician GroupComment on above:Performed By: #### CMP, CBCNO, MG, TRIG #### [place] [address] USAPlatelet mean volume (Bld) [Entitic vol]8.7 fLNormal 6.3-10.7The [facility]ician GroupComment on above:Result Comment: PERFORMED BY: [place] [address] PATHOLOGIST SALOON KEEPER GENOVEVA RENDON M.D.Performed By: #### CMP, CBCNO, MG, TRIG #### [place] [address] USAPlatelets (Bld) [#/Vol]316 10*3/cWGhginl497-486Rap [facility]ician GroupComment on above:Performed By: #### CMP, CBCNO, MG, TRIG #### [place] [address] USARBC (Bld) [#/Vol]3.69 10*6/uLNormal3.60-5.00The [facility]ician GroupComment on above:Performed By: #### CMP, CBCNO, MG, TRIG #### [facility] [address] [place] [address] USAWBC (Bld) [#/Vol]8.3 10*3/uLNormal3.8-11.6The [facility]ician GroupComment on above:Performed By: #### CMP, CBCNO, MG, TRIG #### [facility] [address] [place] [id number] USALeukocytes [#/volume] corrected for nucleated erythrocytes in Blood by Automated counOrdered By: Maru Maguire on 45-51-5094LUG corrected for nucl RBC Auto (Bld) [#/Vol]Leukocytes [#/volume] corrected for nucleated erythrocytes in Blood by Automated coun3.8-11.6FWilson Health MCH Auto (RBC) [Entitic mass]Ordered By: Maru Maguire on 78-62-2018KGZ (RBC) [Entitic mass]MCH [Entitic mass] by Automated count24.7-34.3FWilson HealthMCHC Auto (RBC) [Mass/Vol]Ordered By: Maru Maguire on 31-55-6191MSZL (RBC) [Mass/Vol]MCHC [Mass/volume] by Automated count32.0-35.0[facility] Medical CenterMCV Auto (RBC) [Entitic vol]Ordered By: Maru Maguire on 05-95-7104UOI (RBC) [Entitic vol]MCV [Entitic volume] by Automated gfqul11-265 [facility] Medical CenterMagnesiumon 63-50-1619Xlozmgyxm [Mass/Vol]2.0 mg/dLNormal1.9-2.7The [facility]ician GroupComment on above:Performed By: #### CMP, CBCNO, MG, TRIG #### [facility] [address] [place] [id number] USAMagnesium [Mass/volume] in Serum or PlasmaOrdered By: Maru Maguire on 58-96-5046Oycqxeeym [Mass/Vol]Magnesium [Mass/volume] in Serum or Plasma1.9-2.7FWilson HealthNo Panel InformationOrdered By: Maru Maguire on 26-66-2927Sxdodzkaw GFR (CKD-EPI)> 60.0 mL/MinUniversity Hospitals Beachwood Medical CenterPharmacy Creatinine Clearance (ChemN/AFWilson HealthPlatelet mean volume Auto (Bld) [Entitic vol]Ordered By: Maru Maguire on 84-48-2950Lmrmwaqx mean volume (Bld) [Entitic vol]Platelet mean volume [Entitic volume] in Blood by Automated count6.3-10.7FWilson Health Platelets Auto (Bld) [#/Vol]Ordered By: Maru Maguire on 42-09-3944Wfocepjkr (Bld) [#/Vol]Platelets [#/volume] in Blood by Automated ilkjn236-795CtfcqbumiUniversity Hospitals Beachwood Medical CenterPotassium [Moles/volume] in Serum or PlasmaOrdered By: Maru Maguire on 20-95-7448Myuoiuoll [Moles/Vol]Potassium [Moles/volume] in Serum or Plasma 3.5-5.1FWilson HealthProtein [Mass/volume] in Serum or Plasma Ordered By: Maru Maguire on 02-01-1170Flizyun [Mass/Vol]Protein [Mass/volume] in Serum or Plasma6.4-8.9[facility] Medical CenterRBC Auto (Bld) [#/Vol] Ordered By: Mrau Maguire on 09-06-3259XNZ (Bld) [#/Vol]Erythrocytes [#/volume] in Blood by Automated count3.60-5.00[facility], Beachwooderum or plasma albumin/globulin mass ratioOrdered By: Maru Maguire on 08-14-2024 Albumin/Globulin [Mass ratio]Serum or plasma albumin/globulin mass ratio [facility], Beachwooderum or plasma anion gap determinationOrdered By: Maru Maguire on 07-05-3600Ottkn gap [Moles/Vol]Serum or plasma anion gap determination6.0-15.0[facility], Beachwoododium [Moles/volume] in Serum or PlasmaOrdered By: Maru Maguire on 95-53-7663Rwkdjl [Moles/Vol]Sodium [Moles/volume] in Serum or Hfcnjf500-463CperchkyaUniversity Hospitals Beachwood Medical Center Triglyceride [Mass/volume] in Serum or PlasmaOrdered By: Maru Maguire on 51-20-8093Mqeyoakjlkej [Mass/Vol]Triglyceride [Mass/volume] in Serum or Plasma 35-149[facility] Medical CenterComment on above:TRIG ATP III CLASSIFICATIONTRIG less than 150 mg/dL NormalTRIG 150-199 mg/dL Borderline highTRIG 200-500 mg/dL High TRIG greater than 500 mg/dL Very highStandard traceable to the Center for Disease Conrtrol and Prevention (CDC) test method. Triglycerideson 83-32-3706Lqjuuukridnv [Mass/Vol]97 mg/vCQfsimu85-222Eri [facility]ician GroupComment on above:Result Comment: TRIG ATP III CLASSIFICATION TRIG less than 150 mg/dL Normal TRIG 150-199 mg/dL Borderline high TRIG 200-500 mg/dL High TRIG greater than 500 mg/dL Very high Standard traceable to the Center for Disease Conrtrol and Prevention (CDC) test method. PERFORMED BY: [place] [address] PATHOLOGIST SALOON KEEPER GENOVEVA RENDON M.D.Performed By: #### CMP, CBCNO, MG, TRIG #### [place] [address] USAUrea nitrogen [Mass/volume] in Serum or PlasmaOrdered By: Maru Maguire on 59-81-7943Ysho nitrogen [Mass/Vol]Urea nitrogen [Mass/volume] in Serum or Plasma7-25[facility] Medical CenterCASE MANAGEMon 08-08-2024 CASE MANAGEMNormalUniversity Hospitals Geneva [facility] Center ClevelandCNDSon 45-55-9722TPKUGbcyokVtfaptwpx Clinic ClevelandMagnesium SerPl-mCncon 18-53-7026Hmvsgpdlg [Mass/Vol]2.0 mg/dL Normal1.7-2.3CMercy Health Urbana HospitalComment on above:Order Comment: Specimen Type: BLOOD SPECIMENOrdering Facility: [facility] Address:[address] [place], [place] [address]Performed By: #### 72206-9, 33390-6, 8 ####[facility] LABCLIA [id number] [address] [place] STATES OF AMERICARenal function 2000 panelon 65-87-4491Whangpt [Mass/Vol]3.4 g/dLLow3.9-4.9CMercy Health Urbana HospitalComment on above:Order Comment: Specimen Type: BLOOD SPECIMENOrdering Facility: [facility] Address:[address] [place] [address] Performed By: #### 44602-5, 64867-9, 8 ####[facility] LABCLIA [id number], [place] [address] [place] AMERICAAnion gap [Moles/Vol]10 mmol/LNormal8-15[facility] County HospitalComment on above:Order Comment: Specimen Type: BLOOD SPECIMENOrdering Facility: [facility] Address:[address] [place] [address] Performed By: #### 46161-6, 24400-5, 8 ####[facility] LABIA [id number] [address] [place] OF AMERICACalcium [Mass/Vol]8.9 mg/dLNormal8.5-10.2CMercy Health Urbana Hospital Comment on above:Order Comment: Specimen Type: BLOOD SPECIMENOrdering Facility: [facility] Address:[address] [place] [address] Performed By: #### 57875-7, 43657-7, 8 ####[facility] LABCLIA [id number] [address] [place] OF AMERICAChloride [Moles/Vol]104 mmol/IYnwzfw75-006RannrxampWood County Hospital Comment on above:Order Comment: Specimen Type: BLOOD SPECIMENOrdering Facility: [facility] Address:[address] [place] [address] Performed By: #### 21598-0, 42940-4, 8 ####[facility] LABCLIA [id number], [place] [address] [place] AMERICACO2 [Moles/Vol]25 mmol/PPtqwqd90-08DaotrkzsdUniversity Hospitals Health System on above:Order Comment: Specimen Type: BLOOD SPECIMENOrdering Facility: [facility] Address:[address] [place], [place] [address]Performed By: #### 35504-1, 55024-6, 8 ####[facility] [id number], [place] [address] [place] Creatinine [Mass/Vol]0.48 mg/dLLow0.58-0.96[facility] on above:Order Comment: Specimen Type: BLOOD SPECIMENOrdering Facility: [facility] Address:[address] [place], [place] [address]Performed By: #### 43382-0, 85394-2, 2571-02 ####[facility] [id number], [place] [address] [place] Creatinine and Glomerular filtration rate.predicted panel (S/P/Bld)126 mL/min/1.73m???Normal>=60[facility] on above:Order Comment: Specimen Type: BLOOD SPECIMENOrdering Facility: [facility] Address:[address] [place], [place] [address]Result Comment: Estimated Glomerular Filtration Rate (eGFR) is calculated using the 2020 CKD-EPI cre atinine equation. This equation utilizes serum creatinine, sex, and age as parameters. The creatinine assay has traceable calibration to isotope dilution- mass spectrometry. Refer to KDIGO guidelines for clinical interpretation. In patients with unstable renal function, e.g. those with acute kidney injury, the eGFR may not accurately reflect actual GFR.Performed By: #### 17954-8, 32450-1, 2570-8 ####[facility] [id number] VILLE [address] [place] AMERICAGlucose [Mass/Vol]104 mg/dLHigh 74-99[facility] on above:Order Comment: Specimen Type: BLOOD SPECIMENOrdering Facility: [facility] Address:[address] [place], [place] [id number] Comment: The [place] Diabetes Association (ADA) provides guidance for cutoff [...] unequivocal hyperglycemia, results should be confirmed by repeattesting. In a patient with classic symptoms of hyperglycemia or hyperglycemic crisis, random plasmaglucose results greater than or equal to 200 mg/dL meet the criteria for diagnosis of diabetes.Reference: Standards of Medical Care in Diabetes 2016, [place] Diabetes Association. Diabetes Care. 2016.39(Suppl 1).Performed By: #### 58655- 9, 71468-9, 2570-8 ####[facility] LAB[facility] [id number], [place] [address] [place] AMERICAPhosphate [Mass/Vol] 4.0 mg/dLNormal2.7-4.8CHolmes County [facility] on above:Order Comment: Specimen Type: BLOOD SPECIMENOrdering Facility: [facility] Address:[address] [place], [place] [id number] By: #### 96970-7, 32769-4, 8 ####[facility] LAB[facility] [id number] VILLE [address] [place] AMERICAPotassium [Moles/Vol]4.0 mmol/L Normal3.7-5.1CHolmes County [facility] on above:Order Comment: Specimen Type: BLOOD SPECIMENOrdering Facility: [facility] Address:[address] [place], [place] [address]Performed By: #### 00766-1, 23510-2, 257-8 ####[facility] [id number] VILLE [address] [place] AMERICASodium [Moles/Vol]139 mmol/L Azslya275-336GcttzfcwvUniversity Hospitals Health System on above:Order Comment: Specimen Type: BLOOD SPECIMENOrdering Facility: [facility] Address:[address] [place], [place] [address]Performed By: #### 99741-2, 24751-9, 2571-02 ####[facility] LABCL[facility] [id number] [place] [address] [place] AMERICAUrea nitrogen [Mass/Vol]16 mg/dL Normal7-21[facility] on above:Order Comment: Specimen Type: BLOOD SPECIMENOrdering Facility: [facility] Address:[address] [place], [place] [address]Performed By: #### 89664-6, 38199-4, 2571-02 ####[facility] LABCL[facility] [id number] [place] [address] [place] AMERICATrigl SerPl-mCncon 08-08-2024 Triglyceride [Mass/Vol]125 mg/dLNormal<150[facility] on above:Order Comment: Specimen Type: BLOOD SPECIMENOrdering Facility: [facility] Address:[address] [place], [place] [address]Result Comment: <150 mg/dL, Normal 150-199 mg/dL, Borderline high 200-499 mg/dL, High>499 mg/dL, Very highReference:1. National Cholesterol Education Program ATP III Guideline At-A-Glance QuickDesk Reference: National Heart, Lung, and Blood [place]. National Institutes of Health. 2001: NIHPublication No. 01-3305.Performed By: #### 60053-1, 35085-7, 2571-02 ####[facility] LABCL[facility] [id number] [place] [address] [place] Triglyceride [Mass/Vol]on 60-04-2932UQFADXE TIME6 hrsNormalCHolmes County Joel [facility]rene [facility] Hospital on above:Order Comment: Specimen Type: BLOOD SPECIMENOrdering Facility: [facility] Address:[address] [place] [address] [place], [place] [address]Qdbcdmbaz By: #### 52457-7, 24500-1, 2571-8 ####[facility] LABCL[facility] [id number] [address] [address] [place] AMERICAXR ABDOMEN 1V SUPINEon 04-83-8745TY ABDOMEN 1V SUPINENormal Wood County HospitalBasi metabolic 2000 panelon 72-41-4415Nnzat gap [Moles/Vol]11 mmol/LNormal8-15[facility] on above:Order Comment: Specimen Type: BLOOD SPECIMENOrdering Facility: [facility] Address:[address] [place] [address] [place] [id number] By: #### 66472- 2, 1987-11, , ####[facility] LABCL[facility] [id number] [place] [address] [place] Calcium [Mass/Vol]8.5 mg/dLNormal8.5-10.2CHolmes County [facility] on above:Order Comment: Specimen Type: BLOOD SPECIMENOrdering Facility: [facility] Address:[address] [place], [place] [id number] By: #### 10729-9, 1987-11, , ####[facility]CL[facility] [id number] [place] [address] [place] Chloride [Moles/Vol]108 mmol/PGkyi58-788ZypbiwozyUniversity Hospitals Health System on above:Order Comment: Specimen Type: BLOOD SPECIMENOrdering Facility: [facility] Address:[address] [place] [address]Kepehxjvs By: #### 28800-8, 1987-11, , ####[facility] [id number] [address] [address] [place] CO2 [Moles/Vol]21 mmol/FImf66-49BqupcfaapUniversity Hospitals Health System on above:Order Comment: Specimen Type: BLOOD SPECIMENOrdering Facility: [facility] Address:[address] [place], [place] [address]Performed By: #### 42134- 2, 1987-11, , ####[facility]CL[facility] [id number] [place] [address] [place] Creatinine [Mass/Vol]0.51 mg/dLLow0.58-0.96[facility] on above:Order Comment: Specimen Type: BLOOD SPECIMENOrdering Facility: [facility] Address:[address] [place], [place] [address]Performed By: #### 81260-8, 1987-11, , ####[facility] [id number] [place] [address] [place] Creatinine and Glomerular filtration rate.predicted panel (S/P/Bld)124 mL/min/1.73m???Normal>=60[facility] on above:Order Comment: Specimen Type: BLOOD SPECIMENOrdering Facility: [facility] Address:[address] [place], [place] [address]Result Comment: Estimated Glomerular Filtration Rate (eGFR) is calculated using the 2020 CKD-EPI cre atinine equation. This equation utilizes serum creatinine, sex, and age as parameters. The creatinine assay has traceable calibration to isotope dilution- mass spectrometry. Refer to KDIGO guidelines for clinical interpretation. In patients with unstable renal function, e.g. those with acute kidney injury, the eGFR may not accurately reflect actual GFR.Performed By: #### 01108-1, 1987-11, , ####[facility] [id number] [place] [address] [place] AMERICAGlucose [Mass/Vol]92 mg/gWYltgck52-87AxbfpbjlaUniversity Hospitals Health System on above:Order Comment: Specimen Type: BLOOD SPECIMENOrdering Facility: [facility] Address:[address] [place], [place] [id number] Comment: The [place] Diabetes Association (ADA) provides guidance for cutoff [...] symptoms of hyperglycemia or hyperglycemic crisis, random plasmaglucose results greater than or equal to 200 mg/dL meet the criteria for diagnosis of diabetes.Reference: Standards of Medical Care in Diabetes 2016, [place] [employer]. Diabetes Care. 2016.39(Suppl 1). Performed By: #### 39483-0, 1987-11, , ####[facility] [id number] [place] [address] [place] AMERICAPotassium [Moles/Vol]3.8 mmol/LNormal3.7-5.1CHolmes County [facility] on above:Order Comment: Specimen Type: BLOOD SPECIMENOrdering Facility: [facility] Address:[address] [place], [place] [address]Performed By: #### 91565-5, 1987-11, , ####[facility] [id number] [place] [address] [place] AMERICASodium [Moles/Vol]140 mmol/ALybbom060-486JkdudiomsUniversity Hospitals Health System on above:Order Comment: Specimen Type: BLOOD SPECIMENOrdering Facility: [facility] Address:[address] [place], [place] [address]Performed By: #### 63339-4, 1987-11, , ####[facility] [id number] [place] [id number] [place] AMERICAUrea nitrogen [Mass/Vol]12 mg/dL Normal7-21[facility] ClevelandComment on above:Order Comment: Specimen Type: BLOOD SPECIMENOrdering Facility: [facility] Address:[address] [place], [place] [address]Performed By: #### 74626-5, 1987-5, 82334-3, 23650-3 ####[facility] [id number] [place] [address] [place] AMERICACASE MANAGEMon 79-88-5691JNQF MANAGEMNormalWood County HospitalCASE MANAGEMNormal Wood County HospitalCBC panel Auto (Bld)on 36-70-8637Ojgquuthzle distribution width (RBC) [Ratio]15.7 %High11.5-15.0[facility] Comment on above:Order Comment: Specimen Type: BLOOD SPECIMENOrdering Facility: [facility] Address:[address] [place] [address] Performed By: #### 15346-5 ####[facility] [id number] [place] [address] [place] Hematocrit (Bld) [Volume fraction]30.0 %Low36.0-46.0[facility] Comment on above:Order Comment: Specimen Type: BLOOD SPECIMENOrdering Facility: [facility] Address:[address] [place] [address] Performed By: #### 40088-2 ####[facility] [id number] [place] [address] [place] Hemoglobin (Bld) [Mass/Vol]9.8 g/dLLow11.5-15.5CMercy Health Urbana HospitalComment on above:Order Comment: Specimen Type: BLOOD SPECIMENOrdering Facility: [facility] Address:[address] [place] [address] Performed By: #### 15620-1 ####[facility] [id number] [place] [address] [place] MCH (RBC) [Entitic mass]29.0 lhFmlryj38.0-34.0[facility] on above:Order Comment: Specimen Type: BLOOD SPECIMENOrdering Facility: [facility] Address:[address] [place] [address] Performed By: #### 00846-1 ####[facility] [id number] [place] [address] [place] MCHC (RBC) [Mass/Vol]32.7 g/bIIbvhep64.5-36.0[facility] on above:Order Comment: Specimen Type: BLOOD SPECIMENOrdering Facility: [facility] Address:[address] [place] [address] Performed By: #### 21237-9 ####[facility] [id number] [place] [address] [place] MCV (RBC) [Entitic vol]88.8 iKSusvtm78.0-100.0[facility] on above:Order Comment: Specimen Type: BLOOD SPECIMENOrdering Facility: [facility] Address:[address] [place] [address] Performed By: #### 52328-7 ####[facility] [id number] [place] [address] [place] Nucleated RBC (Bld) [#/Vol]10*3/uLNormal<0.01[facility] on above:Order Comment: Specimen Type: BLOOD SPECIMENOrdering Facility: [facility] Address:[address] [place] [address] Performed By: #### 29150-2 ####[facility] [id number] [place] [address] [place] Platelet mean volume (Bld) [Entitic vol]11.0 fLNormal9.0-12.7CHolmes [facility] on above:Order Comment: Specimen Type: BLOOD SPECIMENOrdering Facility: [facility] Address:[address] [place], [place] [address]Performed By: #### 62294-4 ####[facility] [id number] [place] [address] [place] Platelets (Bld) [#/Vol]205 10*3/mFSmyjbn667-910NryczyzilUniversity Hospitals Health System on above:Order Comment: Specimen Type: BLOOD SPECIMENOrdering Facility: [facility] Address:[address] [place] [address] Performed By: #### 91437-6 ####[facility] [id number] [place] [address] [place] RBC (Bld) [#/Vol]3.38 10*6/uLLow3.90-5.20[facility] on above:Order Comment: Specimen Type: BLOOD SPECIMENOrdering Facility: [facility] Address:[address] [place], [place] [address]Performed By: #### 02661-3 ####[facility] [id number] [place] [address] [place] AMERICAWBC (Bld) [#/Vol]8.14 10*3/uLNormal3.70-11.00[facility] on above:Order Comment: Specimen Type: BLOOD SPECIMENOrdering Facility: [facility] Address:[address] [place], [place] [address]Performed By: #### 99572-6 ####[facility] [id number] [place] [address] [place] AMERICACONSULT PROGon 97-39-4978UWJIFWN PROGNormalWood County HospitalCRP SerPl-mCncon 14-73-3038UAA [Mass/Vol]1.3 mg/dLHigh<0.9CHol[facility] on above:Order Comment: Specimen Type: BLOOD SPECIMENOrdering Facility: [facility] Address:[address] [place], [place] [address]Performed By: #### 55487-8, 1987-11, , ####[facility] [id number] [address] [address] [place] AMERICAHepatic function 2000 panelon 55-90-6611Rxkwhhh [Mass/Vol]3.1 g/dLLow3.9-4.9CMercy Health [facility]rb[facility] Hospital Comment on above:Order Comment: Specimen Type: BLOOD SPECIMENOrdering Facility: [facility] Address:[address] [place] [address] Performed By: #### 74048-4, 1987-11, , ####[facility] [id number] [place] [address] [place] AMERICAALP [Catalytic activity/Vol]70 U/NOijowv89-868LzzytrnlsWood County HospitalComment on above:Order Comment: Specimen Type: BLOOD SPECIMENOrdering Facility: [facility] Address:[address] [place], [place] [id number] By: #### 21699-5, 1987-11, , ####[facility] [id number] [place] [address] [place] AMERICAALT [Catalytic activity/Vol]31 U/LNormal7-38Wood County HospitalComment on above:Order Comment: Specimen Type: BLOOD SPECIMENOrdering Facility: [facility] Address:[address] [place], [place] [id number] By: #### 46722-5, 1987-11, , ####[facility] [id number] [place] [address] [place] AMERICAAST [Catalytic activity/Vol]30 U/JBcfged45-46KcenpflduWood County HospitalComup health system on above:Order Comment: Specimen Type: BLOOD SPECIMENOrdering Facility: [facility] Address:[address] [place], [place] [id number] By: #### 01808-6, 1987-11, 34642-1, ####[facility] [id number] [address] [address] [place] AMERICABilirubin [Mass/Vol] mg/dLLow0.2-1.3CHol[facility] on above:Order Comment: Specimen Type: BLOOD SPECIMENOrdering Facility: [facility] Address:[address] [place] [id number] By: #### 69884-3, 1987-11, 14167-0, ####[facility] [id number] [address] [address] [place] AMERICABilirubin.conjugated [Mass/Vol]mg/dLNormal<0.3CHolmes [facility] on above:Order Comment: Specimen Type: BLOOD SPECIMENOrdering Facility: [facility] Address:[address] [place] [address]Xfsecbwzi By: #### 82987- 2, 1987-11, , ####[facility] [id number] [address] [address] [place] Protein [Mass/Vol]5.9 g/dLLow6.3-8.0[facility] on above: Order Comment: Specimen Type: BLOOD SPECIMENOrdering Facility: [facility] Address:[address] [place] [id number] By: #### 13139- 2, 1987-11, , ####[facility] [id number] [address] [address] [place] Magnesium SerPl-mCncon 48-21-5834Iacxcfbbt [Mass/Vol]1.9 mg/dLNormal1.7-2.3 [facility] on above:Order Comment: Specimen Type: BLOOD SPECIMENOrdering Facility: [facility] Address:[address] [place], [place] [address]Performed By: #### 12577-7, 1987-5, 83313-2, 76859-2 ####[facility] [id number] [place] [address] [place] AMERICAPT EDon 39-04-3077MF EDNormal Wood County HospitalPhosphate SerPl-mCncon 59-95-5900Tnnxrddrx [Mass/Vol] 3.3 mg/dLNormal2.7-4.8CHolmes [facility] on above:Order Comment: Specimen Type: BLOOD SPECIMENOrdering Facility: [facility] Address:[address] [place], [place] [address]Performed By: #### 2777-1 ####[facility] [id number] [place] [address] [place] AMERICABacteria Bld Culton 08-06-2024 Bacteria identified Cx Nom (Bld)CULTURE, BLOOD: No growth 5 daysNoRiverside [facility] on above:Performed By: #### 600-7 ####[facility] [id number] [place] [address] [place] AMERICABacteria identified Cx Nom (Bld)CULTURE, BLOOD: No growth 5 daysNoRiverside Methodist Hospital on above:Performed By: #### 600-7 ####[facility] [id number] [place] [id number] [place] AMERICACBC panel Auto (Bld)on 05-76-2891Ibyklzlxsta distribution width (RBC) [Ratio]15.3 %High11.5-15.0 [facility] on above:Order Comment: Specimen Type: BLOOD SPECIMENOrdering Facility: [facility] Address:[address] [place], [place] [address]Performed By: #### 85882-1 ####[facility] [id number] [place] [address] [place] AMERICAHematocrit (Bld) [Volume fraction]30.2 %Low36.0-46.0[facility] on above:Order Comment: Specimen Type: BLOOD SPECIMENOrdering Facility: [facility] Address:[address] [place], [place] [address]Performed By: #### 96159-0 ####[facility] [id number] [place] [address] [place] Hemoglobin (Bld) [Mass/Vol]9.6 g/dLLow11.5-15.5CHolmes [facility] on above:Order Comment: Specimen Type: BLOOD SPECIMENOrdering Facility: [facility] Address:[address] [place] [address] Performed By: #### 18081-4 ####[facility] [id number] [place] [address] [place] MCH (RBC) [Entitic mass]28.6 niYhhxsg16.0-34.0[facility] on above:Order Comment: Specimen Type: BLOOD SPECIMENOrdering Facility: [facility] Address:[address] [place] [address] Performed By: #### 22807-8 ####[facility] [id number] [place] [address] [place] MCHC (RBC) [Mass/Vol]31.8 g/lUSewonj13.5-36.0[facility] on above:Order Comment: Specimen Type: BLOOD SPECIMENOrdering Facility: [facility] Address:[address] [place] [address] Performed By: #### 63639-1 ####[facility] [id number] [place] [address] [place] MCV (RBC) [Entitic vol]89.9 tWZpgwac35.0-100.0[facility] on above:Order Comment: Specimen Type: BLOOD SPECIMENOrdering Facility: [facility] Address:[address] [place] [address] Performed By: #### 73198-6 ####[facility] [id number] [place] [address] [place] Nucleated RBC (Bld) [#/Vol]10*3/uLNormal<0.01[facility] on above:Order Comment: Specimen Type: BLOOD SPECIMENOrdering Facility: [facility] Address:[address] [place] [address] Performed By: #### 85589-8 ####[facility] [id number] [place] [address] [place] Platelet mean volume (Bld) [Entitic vol]11.4 fLNormal9.0-12.7CHol[facility] on above:Order Comment: Specimen Type: BLOOD SPECIMENOrdering Facility: [facility] Address:[address] [place], [place] [address]Performed By: #### 62176-7 ####[facility] [id number] [place] [address] [place] Platelets (Bld) [#/Vol]189 10*3/nFOcxrrt580-905TvjcxgbjpUniversity Hospitals Health System on above:Order Comment: Specimen Type: BLOOD SPECIMENOrdering Facility: [facility] Address:[address] [place] [address] Performed By: #### 26583-9 ####[facility] [id number] [place] [address] [place] RBC (Bld) [#/Vol]3.36 10*6/uLLow3.90-5.20[facility] on above:Order Comment: Specimen Type: BLOOD SPECIMENOrdering Facility: [facility] Address:[address] [place], [place] [address]Performed By: #### 75401-8 ####[facility] [id number] [place] [address] [place] AMERICAWBC (Bld) [#/Vol]7.03 10*3/uLNormal3.70-11.00[facility] County HospitalComment on above:Order Comment: Specimen Type: BLOOD SPECIMENOrdering Facility: [facility] Address:[address] [place], [place] [address], [place] [address]Performed By: #### 97801-5 ####[facility] [id number] [place] [address] [place] AMERICACONSULT PROGon 88-48-8083IOXIKNS PROGNormalWood County HospitalMagnesium SerPl-mCncon 79-97-5019Wtcghgymj [Mass/Vol]1.8 mg/dLNormal1.7-2.3CHolmes [facility] on above:Order Comment: Specimen Type: BLOOD SPECIMENOrdering Facility: [facility] Address:[address] [place], [place] [address], [place] [address]Performed By: #### 08934- 9, 50355-6 ####[facility] [id number] [place] [address] [place] AMERICARenal function 2000 panelon 26-07-2310Snlydzl [Mass/Vol]3.2 g/dLLow3.9-4.9CMercy Health [facility] Comment on above:Order Comment: Specimen Type: BLOOD SPECIMENOrdering Facility: [facility] Address:[address] [place] [address] Performed By: #### 50780-6, 32402-2 ####[facility] [id number] [place] [address] [place] Anion gap [Moles/Vol]9 mmol/LNormal8-15[facility] on above:Order Comment: Specimen Type: BLOOD SPECIMENOrdering Facility: [facility] Address:[address] [place], [place] [address]Performed By: #### 34040-7, 44221-1 ####[facility] [id number] [place] [address] [place] AMERICACalcium [Mass/Vol]8.7 mg/dLNormal8.5-10.2CHol[facility] on above:Order Comment: Specimen Type: BLOOD SPECIMENOrdering Facility: [facility] Address:[address] [place], [place] [address]Performed By: #### 27851-7, 63313-0 ####[facility] [id number] [place] [address] [place] AMERICAChloride [Moles/Vol]107 mmol/L Ifjxfq04-409OrfiocmmhUniversity Hospitals Health System on above:Order Comment: Specimen Type: BLOOD SPECIMENOrdering Facility: [facility] Address:[address] [place], [place] [address]Performed By: #### 88126-8, 55445-8 ####[facility] [id number] [place] [address] [place] AMERICACO2 [Moles/Vol]23 mmol/MLiylet68-86TsandjgktUniversity Hospitals Health System on above:Order Comment: Specimen Type: BLOOD SPECIMENOrdering Facility: [facility] Address:[address] [place], [place] [address]Performed By: #### 40007-4, 38258-4 ####[facility] [id number] [place] [address] [place]ICACreatinine [Mass/Vol]0.48 mg/dLLow0.58-0.96[facility] on above:Order Comment: Specimen Type: BLOOD SPECIMENOrdering Facility: [facility] Address:[address] [place], [place] [address]Performed By: #### 69297-9, 48126-9 ####[facility] [id number] [place] [address] [place] AMERICACreatinine and Glomerular filtration rate.predicted panel (S/P/Bld)126 mL/min/1.73m???Normal>=60[facility] on above:Order Comment: Specimen Type: BLOOD SPECIMENOrdering Facility: [facility] Address:[address] [place], [place] [address]Result Comment: Estimated Glomerular Filtration Rate (eGFR) is calculated using the 2020 CKD-EPI cre atinine equation. This equation utilizes serum creatinine, sex, and age as parameters. The creatinine assay has traceable calibration to isotope dilution- mass spectrometry. Refer to KDIGO guidelines for clinical interpretation. In patients with unstable renal function, e.g. those with acute kidney injury, the eGFR may not accurately reflect actual GFR.Performed By: #### 69868-1, 87677-1 ####[facility] [id number] [place] [address] [place] AMERICAGlucose [Mass/Vol]100 mg/dLHigh 74-99[facility] on above:Order Comment: Specimen Type: BLOOD SPECIMENOrdering Facility: [facility] Address:[address] [place], [place] [address]Result Comment: The [place] Diabetes Association (ADA) provides guidance for cutoff [...] unequivocal hyperglycemia, results should be confirmed by repeattesting. In a patient with classic symptoms of hyperglycemia or hyperglycemic crisis, random plasmaglucose results greater than or equal to 200 mg/dL meet the criteria for diagnosis of diabetes.Reference: Standards of Medical Care in Diabetes 2016, [place] [employer]. Diabetes Care. 2016.39(Suppl 1).Performed By: #### 76116- 9, 93449-2 ####[facility] [id number] [place] [address] [place] AMERICAPhosphate [Mass/Vol]3.0 mg/dLNormal2.7-4.8CHol[facility] on above:Order Comment: Specimen Type: BLOOD SPECIMENOrdering Facility: [facility] Address:[address] [place], [place] [address]Performed By: #### 28461-4, 58231-0 ####[facility] [id number] [place] [address] [place] AMERICAPotassium [Moles/Vol]3.8 mmol/L Normal3.7-5.1CHolmes [facility] on above:Order Comment: Specimen Type: BLOOD SPECIMENOrdering Facility: [facility] Address:[address] [place], [place] [address]Performed By: #### 30098-5, 73396-4 ####[facility] [id number] [place] [address] [place] AMERICASodium [Moles/Vol]139 mmol/ELwjoxv771-400SpchkipguUniversity Hospitals Health System on above:Order Comment: Specimen Type: BLOOD SPECIMENOrdering Facility: [facility] Address:[address] [place], [place] [address]Performed By: #### 74609-9, 47042-7 ####[facility] [id number] [place] [address] [place] AMERICAUrea nitrogen [Mass/Vol]18 mg/dLNormal7-21[facility] on above:Order Comment: Specimen Type: BLOOD SPECIMENOrdering Facility: [facility] Address:[address] [place], [place] [address]Performed By: #### 55151-4, 76118-1 ####[facility] [id number] [place] [address] [place] FWXVQHL74([place])D3 [facility] 62-76-280592617664-agxbaatxovcmog D3 [Mass/Vol]32.6 ng/lLClmrqe92.0-80.0[facility] County HospitalComment on above:Order Comment: Specimen Type: BLOOD SPECIMENOrdering Facility: [facility] Address:[address] [place], [place] [address]Performed By: #### 1989-3 ####[facility] [id number] [address] OF [facility]OSPITALCBC panel Auto (Bld)on 08-05-2024 Erythrocyte distribution width (RBC) [Ratio]15.3 %High11.5-15.0[facility] County HospitalComment on above:Order Comment: Specimen Type: BLOOD SPECIMENOrdering Facility: [facility] Address:[address] [place], [place] [address]Performed By: #### 63801-7 ####[facility] [id number] [address] [place] Hematocrit (Bld) [Volume fraction]31.9 %Low36.0-46.0[facility] Comment on above:Order Comment: Specimen Type: BLOOD SPECIMENOrdering Facility: [facility] Address:[address] [place] [address] Performed By: #### 02500-0 ####[facility] [id number] [address] [place] Hemoglobin (Bld) [Mass/Vol]10.1 g/dLLow11.5-15.5CMercy Health [facility] Comment on above:Order Comment: Specimen Type: BLOOD SPECIMENOrdering Facility: [facility] Address:[address] [place] [address] Performed By: #### 11589-2 ####[facility] [id number] [place] [address] [place] MCH (RBC) [Entitic mass]27.9 qhTurviy68.0-34.0[facility] HospitalComup health system on above:Order Comment: Specimen Type: BLOOD SPECIMENOrdering Facility: [facility] Address:[address] [place] [address] Performed By: #### 90381-9 ####[facility] [id number] [place] [address] [place] MCHC (RBC) [Mass/Vol]31.7 g/iKDauclx43.5-36.0[facility] on above:Order Comment: Specimen Type: BLOOD SPECIMENOrdering Facility: [facility] Address:[address] [place] [address] Performed By: #### 80762-0 ####[facility] [id number] [place] [address] [place] MCV (RBC) [Entitic vol]88.1 mGLznani93.0-100.0[facility] on above:Order Comment: Specimen Type: BLOOD SPECIMENOrdering Facility: [facility] Address:[address] [place] [address] Performed By: #### 44657-3 ####[facility] [id number] [place] [address] [place] Nucleated RBC (Bld) [#/Vol]10*3/uLNormal<0.01[facility] on above:Order Comment: Specimen Type: BLOOD SPECIMENOrdering Facility: [facility] Address:[address] [place] [address] Performed By: #### 52985-1 ####[facility] [id number] [place] [address] [place] Platelet mean volume (Bld) [Entitic vol]11.9 fLNormal9.0-12.7CHolmes [facility] on above:Order Comment: Specimen Type: BLOOD SPECIMENOrdering Facility: [facility] Address:[address] [place], [place] [address]Performed By: #### 08626-1 ####[facility] [id number] [address] [address] [place] Platelets (Bld) [#/Vol]215 10*3/lDPhlgel262-926TiloqszycUniversity Hospitals Health System on above:Order Comment: Specimen Type: BLOOD SPECIMENOrdering Facility: [facility] Address:[address] [place] [address] Performed By: #### 26549-2 ####[facility] [id number] [place] [address] [place] RBC (Bld) [#/Vol]3.62 10*6/uLLow3.90-5.20[facility] on above:Order Comment: Specimen Type: BLOOD SPECIMENOrdering Facility: [facility] Address:[address] [place], [place] [address]Performed By: #### 25666-8 ####[facility] [id number] [place] [address] [place] AMERICAWBC (Bld) [#/Vol]7.60 10*3/uLNormal3.70-11.00[facility] on above:Order Comment: Specimen Type: BLOOD SPECIMENOrdering Facility: [facility] Address:[address] [place], [place] [address]Performed By: #### 43455-8 ####[facility] [id number] [place] [address] [place] AMERICACONSULT PROGon 16-41-6638LJDIVZA PROGNormalWood County HospitalCONSULT PROGNormalWood County Hospital Magnesium SerPl-mCncon 81-09-1244Uzoenpgln [Mass/Vol]1.7 mg/dLNormal1.7-2.3 [facility] on above:Order Comment: Specimen Type: BLOOD SPECIMENOrdering Facility: [facility] Address:[address] [place], [place] [address]Performed By: #### 97974-9, 94628-4 ####[facility] [id number] [place] [address] [place] AMERICARenal function 2000 panelon 60-16-1563Twicjnc [Mass/Vol]3.6 g/dLLow3.9-4.9CHolmes [facility] on above:Order Comment: Specimen Type: BLOOD SPECIMENOrdering Facility: [facility] Address:[address] [place], [place] [address]Performed By: #### 39920-8, 75629-2 ####[facility] [id number] [place] [address] [place] AMERICAAnion gap [Moles/Vol]10 mmol/L Normal8-15[facility] on above:Order Comment: Specimen Type: BLOOD SPECIMENOrdering Facility: [facility] Address:[address] [place], [place] [address]Performed By: #### 92102-1, 91209-2 ####[facility] [id number] [place] [address] [place] AMERICACalcium [Mass/Vol]9.2 mg/dLNormal8.5-10.2CHolmes [facility] on above:Order Comment: Specimen Type: BLOOD SPECIMENOrdering Facility: [facility] Address:[address] [place], [place] [address]Performed By: #### 07517-0, 23763-0 ####[facility] [id number] [place] [id number] [place] AMERICAChloride [Moles/Vol]103 mmol/CRgfqvj52-661FdpekfginUniversity Hospitals Health System on above:Order Comment: Specimen Type: BLOOD SPECIMENOrdering Facility: [facility] Address:[address] [place], [place] [address]Performed By: #### 68299-8, 15174-0 ####[facility] LABCL[facility] [id number] [place] [address] [place] AMERICACO2 [Moles/Vol]25 mmol/LWygyax01-33JsdlhxsviUniversity Hospitals Health System on above:Order Comment: Specimen Type: BLOOD SPECIMENOrdering Facility: [facility] Address:[address] [place], [place] [address]Performed By: #### 53148-6, 58204-2 ####[facility] [id number] [place] [address] [place] AMERICACreatinine [Mass/Vol] 0.52 mg/dLLow0.58-0.96[facility] on above:Order Comment: Specimen Type: BLOOD SPECIMENOrdering Facility: [facility] Address:[address] [place], [place] [address]Performed By: #### 40241-1, 33562-0 ####[facility] [id number] [place] [address] [place] AMERICACreatinine and Glomerular filtration rate.predicted panel (S/P/Bld)124 mL/min/1.73m???Normal>=60[facility] on above:Order Comment: Specimen Type: BLOOD SPECIMENOrdering Facility: [facility] Address:[address] [place], [place] [address]Result Comment: Estimated Glomerular Filtration Rate (eGFR) is calculated using the 2020 CKD-EPI creatinine equation. This equation utilizes serum creatinine, sex, and age as parameters. The creatinine assay has traceable calibration to isotope dilution-mass spectrometry. Refer to KDIGO guidelines for clinical interpretation. In patients with unstable renal function, e.g. those with acute kidney injury, the eGFR may not accurately reflect actual GFR.Performed By: #### 53457-3, 00190-7 ####[facility] [id number] [place] [address] [place] OF AMERICAGlucose [Mass/Vol]76 mg/aTKzmslw57-15XxzfsyeorWood County Hospital Comment on above:Order Comment: Specimen Type: BLOOD SPECIMENOrdering Facility: [facility] Address:[address] [place], [place] [id number] Comment: The [place] Diabetes Association (ADA) provides guidance for cutoff values for fasting glucose and random glucose. The ADA defines fasting as no caloric intake for at least 8 hours. Fasting plasma glucose results between 100 to 125 mg/dL indicate increased risk for diabetes (prediabetes).Fasting plasma glucose results greater than or equal to 126 mg/dL meet the criteria for diagno sis of diabetes. In the absence of unequivocal hyperglycemia, results should be confirmed by repeattesting. In a patient with classic symptoms of hyperglycemia or hyperglycemic crisis, random plasmaglucose results greater than or equal to 200 mg/dL meet the criteria for diagnosis of diabetes.Reference: Standards of Medical Care in Diabetes 2016, [place] Diabetes Association. Diabetes Care. 2016.39(Suppl 1).Performed By: #### 06884-1, 22981-1 ####[facility] LABCL[facility] [id number] [place] [address] [place] AMERICAPhosphate [Mass/Vol]3.6 mg/dLNormal2.7-4.8CMercy Health Urbana HospitalComment on above:Order Comment: Specimen Type: BLOOD SPECIMENOrdering Facility: [facility] Address:[address] [place], [place] [id number] By: #### 88559-8, 91583-3 ####[facility] LABCL[facility] [id number] [place] [address] [place] AMERICAPotassium [Moles/Vol]4.0 mmol/LNormal3.7-5.1CMercy Health Urbana Hospital Comment on above:Order Comment: Specimen Type: BLOOD SPECIMENOrdering Facility: [facility] Address:[address] [place] [address] Performed By: #### 21630-2, 35488-5 ####[facility] LABCL[facility] [id number] [place] [address] [place] Sodium [Moles/Vol]138 mmol/QEumfal692-184GucbirnssWood County HospitalComup health system on above:Order Comment: Specimen Type: BLOOD SPECIMENOrdering Facility: [facility] Address:[address] [place], [place] [address]Performed By: #### 82911-7, 05391-7 ####[facility] LABCL[facility] [id number] [place] [address] [place] AMERICAUrea nitrogen [Mass/Vol]20 mg/dLNormal7-21Wood County HospitalComment on above:Order Comment: Specimen Type: BLOOD SPECIMENOrdering Facility: [facility] Address:[address] [place], [place] [address]Performed By: #### 92788- 9, 13954-0 ####[facility] LABCLIA [id number] [facility]ICHaleigh Moreau [facility] [place] [address] [place] AMERICACASE MANAGEMon 35-80-4985WCRK MANAGEMNormalWood County HospitalCHROMIUM BLOODon 82-79-6851Dbsprpqo (Bld) [Mass/Vol]0.8 ug/LHigh<0.6CMercy Health Urbana Hospital Comment on above:Order Comment: Specimen Type: BLOOD SPECIMENOrdering Facility: [facility] Address:[address] [place], [place] [address]Result Comment: This test was developed, and its performance characteristics determined by the [facility] Department of Pathology and Laboratory Medicine. It has not been cleared or approved bythe FDA. The [facility] Department of Pathology and Laboratory Medicine is regulated under CLIA as qualified to perform high-complexity testing. This test is used for clinical purposes. It should not be regarded as investigational or for research.Performed By: #### JUAN, CHROM ####[facility] LABCLIA [id number] [place] [address] [place] AMERICACONSULT PROGon 37-77-9565UQXWTPE PROGNormalWood County HospitalCONSULT PROGNormal [facility] Clesouthview medical centerCOPPER BLOODon 25-38-2610Hlvjkx [Mass/Vol]130 ug/dL Nqbimw02-338BjcedlpneWood County HospitalComment on above:Order Comment: Specimen Type: BLOOD SPECIMENOrdering Facility: [facility] Address:[address] [place], [place] [id number] Comment: This test was developed, and its performance characteristics determined by the [facility] Department of Pathology and Laboratory Medicine. It has not been cleared or approved bythe FDA. The [facility] Department of Pathology and Laboratory Medicine is regulated under CLIA as qualified to perform high-complexity testing. This test is used for clinical purposes. It should not be regarded as investigational or for research.Performed By: #### COPPER, 5763-8 ####[facility] LABCLIA [id number] [place] [address] [place] AMERICACRP SerPl-mCncon 32-84-5034USV [Mass/Vol]mg/LNormal<0.9CHolmes County [facility] on above:Order Comment: Specimen Type: BLOOD SPECIMENOrdering Facility: [facility] Address:[address] [place], [place] [address]Performed By: #### 1988-5, 78739-9, 12430-4 ####[facility] LABCLIA [id number] [address] [place] AMERICAFATTY ACIDS PROFILE, ESSENTIALon 71-61-6501S-LINOLENIC ACID, C18 3W335 nmol/oXHrmooa69-803RmkezmdruUniversity Hospitals Health System on above:Order Comment: Specimen Type: BLOOD SPECIMENOrdering Facility: [facility] Address:[address] [place], [place] [address]Performed By: #### CFAPRO ####[facility]IESCLIA [id number] [place] [address] ARACHIDIC ACID, C20 020 nmol/mLNormal8-43[facility] on above:Order Comment: Specimen Type: BLOOD SPECIMENOrdering Facility: [facility] Address:[address] [place], [place] [address]Performed By: #### CFAPRO ####[facility]IESCLIA [id number] [place], [place] [address]UDDTPBQROKI ACID, C20 7R6406 nmol/dFHjkixt344-2815TchptjexsUniversity Hospitals Health System on above:Order Comment: Specimen Type: BLOOD SPECIMENOrdering Facility: [facility] Address:[address] [place], [place] [address]Performed By: #### CFAPRO ####[facility]ORATORIESCLIA [id number] [place], [place] [address]FDK, C22 5M6214 nmol/aIZfmxdl78-890ImvrrwknoUniversity Hospitals Health System on above:Order Comment: Specimen Type: BLOOD SPECIMENOrdering Facility: [facility] Address:[address] [place], [place] [address]Performed By: #### CFAPRO ####[facility]ATORIESCLIA [id number] [place], [place] [address]CEQJHDHMDQ ACID, C22 14 nmol/mLNormal1-10[facility] on above:Order Comment: Specimen Type: BLOOD SPECIMENOrdering Facility: [facility] Address:[address] [place], [place] [address]Performed By: #### CFAPRO ####[facility]ATORIESCLIA [id number] [place], [place] [address]DPI, C22 5W351 nmol/mLNormal 13-75[facility] on above:Order Comment: Specimen Type: BLOOD SPECIMENOrdering Facility: [facility] Address:[address] [place], [place] [address]Performed By: #### CFAPRO ####[facility]ORATORIESCLIA [id number] [place], [place] [address]SWO, C22 5W629 nmol/mLNormal 6-55[facility] on above:Order Comment: Specimen Type: BLOOD SPECIMENOrdering Facility: [facility] Address:[address] [place], [place] [address]Performed By: #### CFAPRO ####[facility]ATORIESCLIA [id number] [place], [place] [address]JSQ, C22 4W625 nmol/mLNormal 10-40[facility] on above:Order Comment: Specimen Type: BLOOD SPECIMENOrdering Facility: [facility] Address:[address] [place], [place] [address]Performed By: #### CFAPRO ####[facility]IESCLIA [id number] [place], [place] [address]VSK FATTY ACIDS PROF, ESSENTIAL SPSee NoteNormalCHolmes County [facility] on above:Order Comment: Specimen Type: BLOOD SPECIMENOrdering Facility: [facility] Address:[address] [place], [place] [address]Result Comment: Authorized individuals can access the [employer] Enhanced Reportwith an [employer] Connect account using the following link.Your local lab can assist you in obtaining the patientreport if you don't have a Connect account.[email or web address] By: NENITA Choi McRae [place], [place] [address]Xsdqehpmpq Director: Hugo Ramsey MD, PhDCLIA Number: [id number] By: #### CFAPRO ####[facility]ATORIESCLIA [id number] [place], [place] [address]MXD, C20 5W3 144 nmol/mLHigh8-130[facility] on above:Order Comment: Specimen Type: BLOOD SPECIMENOrdering Facility: [facility] Address:[address] [place], [place] [address]Performed By: #### CFAPRO ####[facility]ORATORIESCLIA [id number] [place], [place] [address]P-YZECPTSQY ACID, C18 3W692 nmol/mXKbnxic08-946NxpdwczulUniversity Hospitals Health System on above: Order Comment: Specimen Type: BLOOD SPECIMENOrdering Facility: [facility] Address:[address] [place], [place] [address]Performed By: #### CFAPRO ####[facility] LABORATORIESCLIA [id number] [place] [address] G-W-FBUBGJVFJ C20:1U6578 nmol/iTEazagj01-254CrlybqycvUniversity [facility] on above:Order Comment: Specimen Type: BLOOD SPECIMENOrdering Facility: [facility] Address:[address], [place], [place] [address]Jbaudcdyh By: #### CFAPRO ####[facility]ATORIESCLIA [id number] [place], [place] [address]HMSDHGAMJUBE ACID, C16 1W944 nmol/oTUwsgov33-84BzxgrowavWood County Hospital Comment on above:Order Comment: Specimen Type: BLOOD SPECIMENOrdering Facility: [facility] Address:[address] [place] [id number] Performed By: #### CFAPRO ####[facility]ORATORIESCLIA [id number] [place], [place] [address]VJUHTENNULNYLD, FATTY ACID PROFILESee NoteNormal [facility] on above:Order Comment: Specimen Type: BLOOD SPECIMENOrdering Facility: [facility] Address:[address] [place], [place] [address]Result Comment: In this sample the concentration of omega-3 eicosapentaenoic acid(EPA) was mildly elevated suggesting dietary supplements.Results reviewed and interpreted by Herlinda Gillespie, PhD, [facility] INTERPRETIVE INFORMATION: Fatty Acids Profile, Essential Ser/PlasThis test does not screen for disorders of peroxisomalbiogenesis/function.This test was developed and its performance characteristicsdetermined by [employer]. It has not been cleared orapproved by the [place] Food and Drug Administration. This test wasperformed in a CLIA certified laboratory and is intended forclinical purposes.Performed By: #### CFAPRO ####[facility]ORATORIESCLIA [id number] [place], [place] [address]ESQLIX ACID, C12 02 nmol/mLNormal1-200 [facility] on above:Order Comment: Specimen Type: BLOOD SPECIMENOrdering Facility: [facility] Address:[address] [place] [id number] By: #### CFAPRO ####[facility]IESCLIA [id number] [place], [place] [address]PDFPZCOI ACID, C18 2H16270 nmol/fHSrnfvu6710-7818EnddybzvwUniversity Hospitals [facility] on above:Order Comment: Specimen Type: BLOOD SPECIMENOrdering Facility: [facility] Address:[address], [place], [place] [address]Ubxegtyoi By: #### CFAPRO ####[facility]ATORIESCLIA [id number] [place], [place] [address]XVBJ ACID, C20 3W910 nmol/mLNormal1-35[facility] on above:Order Comment: Specimen Type: BLOOD SPECIMENOrdering Facility: [facility] Address:[address] [place], [place] [id number] By: #### CFAPRO ####[facility]ATORIESCLIA [id number] [place] [address] MYRISTIC ACID, C14 0113 nmol/eHJgiifm22-908WabltxmzoUniversity [facility]als [facility] on above:Order Comment: Specimen Type: BLOOD SPECIMENOrdering Facility: [facility] Address:[address] [place], [place] [address]Performed By: #### CFAPRO ####[facility]IESCLIA [id number] [place], [place] [address]XDFYYMUZ ACID, C24 6L6514 nmol/nCGqscpk74-363FftfdflpuWood County Hospital Comment on above:Order Comment: Specimen Type: BLOOD SPECIMENOrdering Facility: [facility] Address:[address] [place] [address] Performed By: #### CFAPRO ####[facility]IESCLIA [id number] [place], [place] [address]ZUDQN ACID, C18 7E37305 nmol/cHXczbwg214-2441 [facility] on above:Order Comment: Specimen Type: BLOOD SPECIMENOrdering Facility: [facility] Address:[address] [place], [place] [address]Performed By: #### CFAPRO ####[facility]ATORIESCLIA [id number] [place], [place] [address]CQUPQXLF ACID, C16 650[address] nmol/tAGoidti2289-2608AzepcbcxaUniversity [facility] on above:Order Comment: Specimen Type: BLOOD SPECIMENOrdering Facility: [facility] Address:[address] [place], [place] [id number] By: #### CFAPRO ####[facility]ATORIESCLIA [id number] [place], [place] [address]FBDOCHQOTWX ACID, C16 7R8410 nmol/yAIurkzg90-084KwkrqkaikUniversity Hospitals [facility] System on above: Order Comment: Specimen Type: BLOOD SPECIMENOrdering Facility: [facility] Address:[address] [place], [place] [address]Performed By: #### CFAPRO ####[facility]ATORIESCLIA [id number] [place] [address] STEARIC ACID, C18 0607 nmol/vKYjvjzh174-5343ZedwcrugeUniversity Hospitals Health System on above:Order Comment: Specimen Type: BLOOD SPECIMENOrdering Facility: [facility] Address:[address] [place], [place] [address]Performed By: #### CFAPRO ####[facility]ORATORIESCLIA [id number] [place], [place] [address]WASLJ FATTY ACIDS10.0 mmol/LNormal4.5-15.0[facility] on above:Order Comment: Specimen Type: BLOOD SPECIMENOrdering Facility: [facility] Address:[address] [place] [address] Performed By: #### CFAPRO ####[facility]ATORIESCLIA [id number] [place], [place] [address]LDGEV MONOUNSATURATED ACIDS2.8 mmol/LNormal0.9-4.7 [facility] on above:Order Comment: Specimen Type: BLOOD SPECIMENOrdering Facility: [facility] Address:[address] [place], [place] [address]Performed By: #### CFAPRO ####[facility]ATORIESCLIA [id number] [place], [place] [address]ADVVV POLYUNSATURATED ACIDS3.5 mmol/LNormal2.1-6.2CHolmes County [facility] on above:Order Comment: Specimen Type: BLOOD SPECIMENOrdering Facility: [facility] Address:[address] [place], [place] [address]Performed By: #### CFAPRO ####[facility]ATORIESCLIA [id number] [place], [place] [address]RDVMY SATURATED ACIDS3.6 mmol/LNormal1.5-5.3CHolmes County [facility] on above:Order Comment: Specimen Type: BLOOD SPECIMENOrdering Facility: [facility] Address:[address] [place], [place] [address]Performed By: #### CFAPRO ####[facility]ORATORIESCLIA [id number] [place], [place] [address]ARUUV W30.44 mmol/LNormal0.12-0.55[facility] on above:Order Comment: Specimen Type: BLOOD SPECIMENOrdering Facility: [facility] Address:[address] [place], [place] [address]Performed By: #### CFAPRO ####[facility]ORATORIESCLIA [id number] [place], [place] [address]MAMNV W63.1 mmol/LNormal1.8-5.7CHolmes County [facility] on above: Order Comment: Specimen Type: BLOOD SPECIMENOrdering Facility: [facility] Address:[address] [place], [place] [address]Performed By: #### CFAPRO ####[facility]ORATORIESCLIA [id number] [place] [address] TRIENE/TETRAENE RATIO0.229Zbwtmi8.004-0.051CHolmes County [facility] on above:Order Comment: Specimen Type: BLOOD SPECIMENOrdering Facility: [facility] Address:[address] [place], [place] [address]Performed By: #### CFAPRO ####[facility]ORATORIESCLIA [id number] [place], [place] [address]MTRFZIYW ACID, C18 6P0410 nmol/yQElaxiu36-286MyilgvvboWood County Hospital Comment on above:Order Comment: Specimen Type: BLOOD SPECIMENOrdering Facility: [facility] Address:[address] [place] [address] Performed By: #### CFAPRO ####[facility]ORATORIESCLIA [id number] [place], [place] [address]KYOHVZNVV BLDon 69-11-1214Sgcxgzavz (Bld) [Mass/Vol] 7.3 ug/LNormal4.4-15.2CHolmes [facility] on above:Order Comment: Specimen Type: BLOOD SPECIMENOrdering Facility: [facility] Address:[address] [place], [place] [id number] Comment: This test was developed, and its performance characteristics determined by the [facility] Department of Pathology and Laboratory Medicine. It has not been cleared or approved bythe FDA. The [facility] Department of Pathology and Laboratory Medicine is regulated under CLIA as qualified to perform high- complexity testing. This test is used for clinical purposes. It should not be regarded as investigational or for research.Performed By: #### JUAN, CHROM ####[facility] LABCLIA [id number] [place] [address] [place] AMERICAMagnesium SerPl-mCncon 08-04-2024 Magnesium [Mass/Vol]1.9 mg/dLNormal1.7-2.3CHolmes County [facility] on above:Order Comment: Specimen Type: BLOOD SPECIMENOrdering Facility: [facility] Address:[address] [place], [place] [address]Performed By: #### 1987-11, , 31910-1 ####[facility] [id number] [address] [place] NURSING PROGon 90-62-1950BUKYJRN PROGNormalWood County HospitalRenal function 2000 panelon 24-27-7708Pqsythv [Mass/Vol]3.4 g/dLLow3.9-4.9CHolmes County [facility] on above:Order Comment: Specimen Type: BLOOD SPECIMENOrdering Facility: [facility] Address:[address] [place], [place] [id number] By: #### 1987-11, , 74721-5 ####[facility] [id number] VIL[place] [address] [place] AMERICAAnion gap [Moles/Vol]6 mmol/LLow8-15[facility] on above:Order Comment: Specimen Type: BLOOD SPECIMENOrdering Facility: [facility] Address:[address] [place], [place] [address]Performed By: #### 1987-11, , ####[facility] LABCLIA [id number] [address] [place] AMERICACalcium [Mass/Vol]9.5 mg/dLNormal8.5-10.2CHolmes [facility] on above:Order Comment: Specimen Type: BLOOD SPECIMENOrdering Facility: [facility] Address:[address] [place], [place] [address]Performed By: #### 1987-11, , ####[facility] LABCLIA [id number], [place] [address] [place] AMERICAChloride [Moles/Vol]103 mmol/ZIaegbc21-691 [facility] on above:Order Comment: Specimen Type: BLOOD SPECIMENOrdering Facility: [facility] Address:[address] [place], [place] [address]Performed By: #### 1987-11, , ####[facility] [id number], [place] [address] [place] AMERICACO2 [Moles/Vol]30 mmol/IQbhwjm21-78MvyrdhmpxUniversity Hospitals Health System on above:Order Comment: Specimen Type: BLOOD SPECIMENOrdering Facility: [facility] Address:[address] [place], [place] [id number] By: #### 1987-11, , ####[facility] LABIA [id number] VILLE [address] [place] AMERICACreatinine [Mass/Vol]0.53 mg/dLLow0.58-0.96 [facility] on above:Order Comment: Specimen Type: BLOOD SPECIMENOrdering Facility: [facility] Address:[address] [place], [place] [id number] By: #### 1988-, ####[facility] LABCLIA [id number][place] [address] [place] AMERICACreatinine and Glomerular filtration rate.predicted panel (S/P/Bld)123 mL/min/1.73m???Normal>=60[facility] on above:Order Comment: Specimen Type: BLOOD SPECIMENOrdering Facility: [facility] Address:[address] [place], [place] [address]Result Comment: Estimated Glomerular Filtration Rate (eGFR) is calculated using the 2020 CKD-EPI creatinine equation. This equation utilizes serum creatinine, sex, and age as parameters. The creatinine assay has traceable calibration to isotope dilution-mass spectrometry. Refer to KDIGO guidelines for clinical interpretation. In patients with unstable renal function, e.g. those with acute kidney injury, the eGFR may not accurately reflect actual GFR. Performed By: #### 1987-11, , ####[facility] LABCLIA [id number] VILLE [address] [place] AMERICAGlucose [Mass/Vol]75 mg/lRYtfhfv77-45KzzanjmylUniversity Hospitals [facility] on above:Order Comment: Specimen Type: BLOOD SPECIMENOrdering Facility: [facility] Address:[address] [place], [place] [address]Result Comment: The [place] Diabetes Association (ADA) provides guidance for cutoff [...] unequivocal hyperglycemia, results should be confirmed by repeattesting. In a patient with classic symptoms of hyperglycemia or hyperglycemic crisis, random plasmaglucose results greater than or equal to 200 mg/dL meet the criteria for diagnosis of diabetes.Reference: Standards of Medical Care in Diabetes 2016, [place] [employer]. Diabetes Care. 2016.39(Suppl 1).Performed By: #### 1987-11, , ####[facility] LABCLIA [id number] [address] [place] AMERICAPhosphate [Mass/Vol]4.1 mg/dLNormal2.7-4.8 [facility] on above:Order Comment: Specimen Type: BLOOD SPECIMENOrdering Facility: [facility] Address:[address] [place], [place] [address]Performed By: #### 1987-11, , ####[facility] [id number], [place] [address] [place] AMERICAPotassium [Moles/Vol]4.2 mmol/LNormal3.7-5.1 [facility] on above:Order Comment: Specimen Type: BLOOD SPECIMENOrdering Facility: [facility] Address:[address] [place], [place] [address]Performed By: #### 1987-11, , ####[facility] [id number], [place] [address] [place] AMERICASodium [Moles/Vol]139 mmol/CUxhbhj696-761DnvehqgxhUniversity Hospitals Health System on above:Order Comment: Specimen Type: BLOOD SPECIMENOrdering Facility: [facility] Address:[address] [place], [place] [address]Performed By: #### 1987-11, , ####[facility] [id number] VILLE [address] [place] AMERICAUrea nitrogen [Mass/Vol]17 mg/dLNormal7-21 [facility] on above:Order Comment: Specimen Type: BLOOD SPECIMENOrdering Facility: [facility] Address:[address] [place], [place] [address]Performed By: #### 1987-11, , ####[facility] [id number] [address] STATES OF AMERICASelenium Bld-mCncon 54-32-6678Gerplseu (Bld) [Mass/Vol]125.3 ug/DKlydyl79.0-234.0[facility] on above: Order Comment: Specimen Type: BLOOD SPECIMENOrdering Facility: [facility] Address:[address] [place], [place] [address]Result Comment: This test was developed, and its performance characteristics determined by the [facility] Department of Pathology and Laboratory Medicine. It has not been cleared or approved [facility] FDA. The [facility] of Pathology and Laboratory Medicine is regulated under CLIA as qualified to perform high- complexity testing. This test is used for clinical purposes. It should not be regarded as investigational or for research.Performed By: #### 5722-4 ####[facility] LABCL[facility] [id number] [address] STATES OF AMERICAZinc SerPl-mCncon 87-04-9819Glky [Mass/Vol]48 ug/bZCue98-873FhnkertqoUniversity Hospitals Health System on above:Order Comment: Specimen Type: BLOOD SPECIMENOrdering Facility: [facility] Address:[address] [place], [place] [address]Result Comment: This test was developed, and its performance characteristics determined by the [facility] Department of Pathology and Laboratory Medicine. It has not been cleared or approved [facility] FDA. The [facility] Department of Pathology and Laboratory Medicine is regulated under CLIA as qualified to perform high- complexity testing. This test is used for clinical purposes. It should not be regarded as investigational or for research.Performed By: #### COPPER, 5763-8 ####[facility] [id number] [place] [address] [place] AMERICACASE MANAGEMon 56-13-9015IMMS MANAGEMNormalWood County HospitalCB panel Auto (Bld)on 08-03-2024 Erythrocyte distribution width (RBC) [Ratio]15.3 %High11.5-15.0[facility] on above:Order Comment: Specimen Type: BLOOD SPECIMENOrdering Facility: [facility] Address:[address] [place], [place] [address]Performed By: #### 98422-3 ####[facility] LABCL[facility] [id number] [place] [address] [place] Hematocrit (Bld) [Volume fraction]34.0 %Low36.0-46.0[facility] Comment on above:Order Comment: Specimen Type: BLOOD SPECIMENOrdering Facility: [facility] Address:[address] [place] [address] Performed By: #### 48796-8 ####[facility] LAB[facility] [id number] [place] [address] [place] Hemoglobin (Bld) [Mass/Vol]11.0 g/dLLow11.5-15.5CMercy Health [facility] Comment on above:Order Comment: Specimen Type: BLOOD SPECIMENOrdering Facility: [facility] Address:[address] [place] [address] Performed By: #### 73842-8 ####[facility] [id number] [place] [address] [place] MCH (RBC) [Entitic mass]27.6 zfDccsvl58.0-34.0Wood County HospitalComment on above:Order Comment: Specimen Type: BLOOD SPECIMENOrdering Facility: [facility] Address:[address] [place] [address] Performed By: #### 17595-4 ####[facility] LABCL[facility] [id number] [place] [address] [place] MCHC (RBC) [Mass/Vol]32.4 g/hUSjmiti44.5-36.0[facility] County HospitalComment on above:Order Comment: Specimen Type: BLOOD SPECIMENOrdering Facility: [facility] Address:[address] [place] [address] Performed By: #### 31687-9 ####[facility] [id number] [place] [address] [place] MCV (RBC) [Entitic vol]85.2 wKCypsjz05.0-100.0[facility] on above:Order Comment: Specimen Type: BLOOD SPECIMENOrdering Facility: [facility] Address:[address] [place] [address] Performed By: #### 79667-3 ####[facility] [id number] [place] [address] [place] Nucleated RBC (Bld) [#/Vol]10*3/uLNormal<0.01[facility] on above:Order Comment: Specimen Type: BLOOD SPECIMENOrdering Facility: [facility] Address:[address] [place] [address] Performed By: #### 66581-2 ####[facility] [id number] [place] [address] [place] Platelet mean volume (Bld) [Entitic vol]10.7 fLNormal9.0-12.7CHolmes [facility] on above:Order Comment: Specimen Type: BLOOD SPECIMENOrdering Facility: [facility] Address:[address] [place], [place] [address]Performed By: #### 14031-9 ####[facility] [id number] [place] [address] [place] Platelets (Bld) [#/Vol]234 10*3/yKWvvjak141-968IxeoglgctUniversity Hospitals Health System on above:Order Comment: Specimen Type: BLOOD SPECIMENOrdering Facility: [facility] Address:[address] [place] [address] Performed By: #### 23446-8 ####[facility] [id number] [place] [address] [place] RBC (Bld) [#/Vol]3.99 10*6/uLNormal3.90-5.20[facility] on above:Order Comment: Specimen Type: BLOOD SPECIMENOrdering Facility: [facility] Address:[address] [place], [place] [address]Performed By: #### 54295-6 ####[facility] [id number] [place] [address] [place] AMERICAWBC (Bld) [#/Vol]5.71 10*3/uLNormal3.70-11.00[facility] on above:Order Comment: Specimen Type: BLOOD SPECIMENOrdering Facility: [facility] Address:[address] [place], [place] [address]Performed By: #### 03200-6 ####[facility] [id number] [place] [address] [place] AMERICACONSULT PROGon 48-52-8197KQVRILF PROGNormalWood County HospitalCONSULT PROGNormalWood County Hospital CONSULT PROGNormalWood County HospitalCRP SerPl-mCncon 04-52-3554DHF [Mass/Vol]0.5 mg/dLNormal<0.9CHol[facility] on above:Order Comment: Specimen Type: BLOOD SPECIMENOrdering Facility: [facility] Address:[address] [place], [place] [address]Performed By: #### 73330- 9, 76024-8, 2143-6, 1987- ####[facility]CL[facility] [id number] [place] [address] [place] AMERICACortis SerPl-mCncon 22-44-6839Urqicgdx [Mass/Vol]5.2 ug/dLNormal4.8-19.5CHolmes [facility] on above:Order Comment: Specimen Type: BLOOD SPECIMENOrdering Facility: [facility] Address:[address] [place], [place] [address]Result Comment: Provided reference range is from 6-10 AM sample collection time.Cortisol Reference Range: 6-10 AM = 4.8-19.5 ug/dL, 4-8 PM = 2.5-11.9 ug/dLPerformed By: #### 64529-2, 94383-3, 2142-12, 1987-11 ####[facility] LABCL[facility] [id number] [place] [id number] [place] OF AMERICAECG COMPLETEon 04-22-1382NLQ COMPLETENormalCMercy Health Urbana HospitalMagnesium SerPl-mCncon 08-03-2024 Magnesium [Mass/Vol]2.3 mg/dLNormal1.7-2.3CHolmes [facility] on above:Order Comment: Specimen Type: BLOOD SPECIMENOrdering Facility: [facility] Address:[address] [place], [place] [address]Performed By: #### 30622-0, 24935-3, 2142-12, 1987-11 ####[facility] [id number] [place] [address] [place] Renal function 2000 panelon 86-96-4255Iqbwhig [Mass/Vol]3.5 g/dLLow3.9-4.9 [facility] on above:Order Comment: Specimen Type: BLOOD SPECIMENOrdering Facility: [facility] Address:[address] [place], [place] [address]Performed By: #### 05357-5, 58445-2, 2142-12, 1987-11 ####[facility] [id number] [place] [address] [place] AMERICAAnion gap [Moles/Vol]10 mmol/L Normal8-15[facility] on above:Order Comment: Specimen Type: BLOOD SPECIMENOrdering Facility: [facility] Address:[address] [place], [place] [address]Performed By: #### 63893-1, 08107-6, 2142-12, 1987-11 ####[facility] [id number] [place] [address] [place] AMERICACalcium [Mass/Vol]9.2 mg/dL Normal8.5-10.2CHolmes [facility] on above:Order Comment: Specimen Type: BLOOD SPECIMENOrdering Facility: [facility] Address:[address] [place], [place] [address]Performed By: #### 39155-0, 35609-1, 2142-12, 1987-11 ####[facility]CL[facility] [id number] [place] [address] [place] AMERICAChloride [Moles/Vol]100 mmol/L Eogaiw75-413OoftvquzaUniversity Hospitals Health System on above:Order Comment: Specimen Type: BLOOD SPECIMENOrdering Facility: [facility] Address:[address] [place], [place] [address]Performed By: #### 97052-1, 64429-2, 2142-12, 1987-11 ####[facility]CL[facility] [id number] [place] [id number] [place] AMERICACO2 [Moles/Vol]28 mmol/LNormal 22-30[facility] on above:Order Comment: Specimen Type: BLOOD SPECIMENOrdering Facility: [facility] Address:[address] [place], [place] [address]Performed By: #### 34909-3, 01003-8, 2142-12, 1987-11 ####[facility] [id number] [place] [address] [place] AMERICACreatinine [Mass/Vol]0.56 mg/dL Low0.58-0.96[facility] on above:Order Comment: Specimen Type: BLOOD SPECIMENOrdering Facility: [facility] Address:[address] [place], [place] [address]Performed By: #### 19510-1, 37941-0, 2142-12, 1987-11 ####[facility] [id number] [place] [address] [place] AMERICACreatinine and Glomerular filtration rate.predicted panel (S/P/Bld)121 mL/min/1.73m???Normal>=60[facility] on above:Order Comment: Specimen Type: BLOOD SPECIMENOrdering Facility: [facility] Address[address] [address] [place]ME[place] [id number] Comment: Estimated Glomerular Filtration Rate (eGFR) is calculated using the 2020 CKD-EPI creatinine equation. This equation utilizes serum creatinine, sex, and age as parameters. The creatinine assay has traceable calibration to isotope dilution-mass spectrometry. Refer to KDIGO guidelines for clinical interpretation. In patients with unstable renal function, e.g. those with acute kidney injury, the eGFR may not accurately reflect actual GFR.Performed By: #### 25797-7, 21499-9, 2142-12, 1987-11 ####[facility] [id number] [place] [address] [place] AMERICAGlucose [Mass/Vol]99 mg/dLNormal 74-99[facility] on above:Order Comment: Specimen Type: BLOOD SPECIMENOrdering Facility: [facility] Address:[address] [place], [place] [address] [id number] Comment: The [place] Diabetes Association (ADA) provides guidance for cutoff [...] unequivocal hyperglycemia, results should be confirmed by repeattesting. In a patient with classic symptoms of hyperglycemia or hyperglycemic crisis, random plasmaglucose results greater than or equal to 200 mg/dL meet the criteria for diagnosis of diabetes.Reference: Standards of Medical Care in Diabetes 2016, [place] [employer]. Diabetes Care. 2016.39(Suppl 1).Performed By: #### 26791- 9, 30708-6, 2142-12, 1987-11 ####[facility]CL[facility] [id number] [place] [address] [place] Phosphate [Mass/Vol]4.6 mg/dLNormal2.7-4.8CHol[facility] on above:Order Comment: Specimen Type: BLOOD SPECIMENOrdering Facility: [facility] Address:[address] [place], [place] [id number] By: #### 49992-3, 41959-3, 2142-12, 1987-11 ####[facility] [id number] [place] [address] [place] Potassium [Moles/Vol]4.3 mmol/LNormal3.7-5.1CHolmes [facility] on above:Order Comment: Specimen Type: BLOOD SPECIMENOrdering Facility: [facility] Address:[address] [place], [place] [address]Performed By: #### 70387-4, 35257-6, 2142-12, 1987-11 ####[facility] [id number] [place] [address] [place] Sodium [Moles/Vol]138 mmol/BLduqgs039-222EpimrsfxvUniversity Hospitals Health System on above:Order Comment: Specimen Type: BLOOD SPECIMENOrdering Facility: [facility] Address:[address] [place], [place] [id number] By: #### 27361-2, 63682-2, 2142-12, 1987-11 ####[facility] [id number] [place] [address] [place] Urea nitrogen [Mass/Vol]15 mg/dLNormal7-21[facility] on above:Order Comment: Specimen Type: BLOOD SPECIMENOrdering Facility: [facility] Address:[address] [place], [place] [address]Performed By: #### 67847-6, 48482-7, 2142-12, 1987-11 ####[facility]CL[facility] [id number] [place] [address] [place] CBC panel Auto (Bld)on 60-99-9386Ueukrjpifsu distribution width (RBC) [Ratio] 15.2 %High11.5-15.0[facility] on above:Order Comment: Specimen Type: BLOOD SPECIMENOrdering Facility: [facility] Address:[address] [place], [place] [address]Performed By: #### 94542-3 ####[facility] LABCL[facility] [id number] [address]ETHematocrit (Bld) [Volume fraction]33.5 %Low36.0-46.0[facility] on above:Order Comment: Specimen Type: BLOOD SPECIMENOrdering Facility: [facility] Address:[address] [place], [place] [address]Performed By: #### 49010- 2 ####[facility] [id number] [address]ETHemoglobin (Bld) [Mass/Vol]11.0 g/dLLow11.5-15.5CHolmes [facility] on above:Order Comment: Specimen Type: BLOOD SPECIMENOrdering Facility: [facility] Address:[address] [place], [place] [address]Performed By: #### 94566-4 ####[facility] LABCL[facility] [id number] [address]ETMCH (RBC) [Entitic mass]28.1 pg Cjtbwr25.0-34.0[facility] on above:Order Comment: Specimen Type: BLOOD SPECIMENOrdering Facility: [facility] Address:[address] [place], [place] [address]Performed By: #### 65886-1 ####[facility] [id number] [address]ETMCHC (RBC) [Mass/Vol]32.8 g/dL Lmyihk95.5-36.0[facility] on above:Order Comment: Specimen Type: BLOOD SPECIMENOrdering Facility: [facility] Address:[address] [place], [place] [address]Performed By: #### 71968-5 ####[facility] [id number] [place] [address] [place] AMERICAMCV (RBC) [Entitic vol]85.7 fL Fupifp57.0-100.0[facility] on above:Order Comment: Specimen Type: BLOOD SPECIMENOrdering Facility: [facility] Address:[address] [place], [place] [address]Performed By: #### 51858-7 ####[facility] [id number] [place] [address] [place] AMERICANucleated RBC (Bld) [#/Vol] 10*3/uLNormal<0.01[facility] on above:Order Comment: Specimen Type: BLOOD SPECIMENOrdering Facility: [facility] Address:[address] [place], [place] [address]Performed By: #### 52425-2 ####[facility]PITALIA [id number] [place] [address] [place] AMERICAPlatelet mean volume (Bld) [Entitic vol]11.0 fLNormal9.0-12.7CHolmes [facility] on above: Order Comment: Specimen Type: BLOOD SPECIMENOrdering Facility: [facility] Address:[address] [place], [place] [address]Performed By: #### 15149- 2 ####[facility] [id number] [place] [address] [place] AMERICAPlatelets (Bld) [#/Vol]218 10*3/hZOkatyu193-801ZwldbrjrwUniversity [facility]als [facility] on above:Order Comment: Specimen Type: BLOOD SPECIMENOrdering Facility: [facility] Address:[address] [place], [place] [id number] By: #### 43805-1 ####[facility]CL[facility] [id number] [address] STATES OF AMERICARBC (Bld) [#/Vol]3.91 10*6/uL Normal3.90-5.20[facility] on above:Order Comment: Specimen Type: BLOOD SPECIMENOrdering Facility: [facility] Address:[address] [place], [place] [address]Performed By: #### 06819-6 ####[facility]CL[facility] [id number] [address] AMERICAWBC (Bld) [#/Vol]5.37 10*3/uL Normal3.70-11.00[facility] on above:Order Comment: Specimen Type: BLOOD SPECIMENOrdering Facility: [facility] Address:[address] [place], [place] [address]Performed By: #### 19449-9 ####[facility]CL[facility] [id number] [address] STATES OF AMERICACONSULTon 34-42-7214FIZAUOJZfglyp [facility] HospitalCONSULT PROGon 11-68-5285UERTOVV PROGNormalWood County HospitalCONLT PROGNormalWood County HospitalMagnesium SerPl-mCnc on 08-66-9028Nngusupbn [Mass/Vol]2.2 mg/dLNormal1.7-2.3CHol[facility] on above:Order Comment: Specimen Type: BLOOD SPECIMENOrdering Facility: [facility] Address:[address] [place], [place] [address]Performed By: #### 86745-0, 55186-9 ####[facility]CL[facility] [id number] [place] [id number] [place] AMERICARenal function 2000 panelon 34-79-3983Umzdqip [Mass/Vol]3.3 g/dLLow 3.9-4.9CHolmes [facility] on above:Order Comment: Specimen Type: BLOOD SPECIMENOrdering Facility: [facility] Address:[address] [place], [place] [address]Performed By: #### 70281-2, 06343-6 ####[facility]CL[facility] [id number] [place] [address] [place] AMERICAAnion gap [Moles/Vol]11 mmol/LNormal8-15[facility] on above:Order Comment: Specimen Type: BLOOD SPECIMENOrdering Facility: [facility] Address:[address] [place], [place] [address]Performed By: #### 60610-6, 99864-2 ####[facility]CL[facility] [id number] [place] [address] [place] AMERICACalcium [Mass/Vol]9.0 mg/dLNormal8.5-10.2CHolmes [facility] on above:Order Comment: Specimen Type: BLOOD SPECIMENOrdering Facility: [facility] Address:[address] [place], [place] [address]Performed By: #### 09048-5, 01151-9 ####[facility]CL[facility] [id number] [place] [address] [place] AMERICAChloride [Moles/Vol]103 mmol/FTiszul96-042VbkurjcscWood County Hospital Comment on above:Order Comment: Specimen Type: BLOOD SPECIMENOrdering Facility: [facility] Address:[address] [place], [place] [id number] Performed By: #### 89238-9, 16211-6 ####[facility]CL[facility] [id number] [place] [id number] [place] CO2 [Moles/Vol]27 mmol/LSkynvr15-52RlrcxiagtUniversity Hospitals Health System on above: Order Comment: Specimen Type: BLOOD SPECIMENOrdering Facility: [facility] Address:[address] [place], [place] [address]Performed By: #### 06085- 9, 66575-6 ####[facility] [id number] [address] [place] [address] [place] AMERICACreatinine [Mass/Vol] 0.58 mg/dLNormal0.58-0.96[facility] HospitalComment on above:Order Comment: Specimen Type: BLOOD SPECIMENOrdering Facility: [facility] Address:[address] [place], [place] [address]Performed By: #### 20136- 9, 64812-7 ####[facility] [id number] [facility]ICHaleigh [facility] [place] [address] [place] AMERICACreatinine and Glomerular filtration rate.predicted panel (S/P/Bld)120 mL/min/1.73m???Normal >=60[facility] on above:Order Comment: Specimen Type: BLOOD SPECIMENOrdering Facility: [facility] Address:[address] [place], [place] [address]Result Comment: Estimated Glomerular Filtration Rate (eGFR) is calculated using the 2020 CKD-EPI creatinine equation. This equation utilizes serum creatinine, sex, and age as parameters. The creatinine assay has traceable calibration to isotope dilution-mass spectrometry. Refer to KDIGO guidelines for clinical interpretation. In patients with unstable renal function, e.g. those with acute kidney injury, the eGFR may not accurately reflect actual GFR.Performed By: #### 61445-5, 07516-6 ####[facility] [id number] [place] [address] [place] AMERICAGlucose [Mass/Vol]83 mg/mUXwmwsi42-13NwmaceqznWood County Hospital Comment on above:Order Comment: Specimen Type: BLOOD SPECIMENOrdering Facility: [facility] Address:[address] [place], [place] [address]Result Comment: The [place] Diabetes Association (ADA) provides guidance for cutoff values for fasting glucose and random glucose. The ADA defines fasting as no caloric intake for at least 8 hours. Fasting plasma glucose results between 100 to 125 mg/dL indicate increased risk for diabetes (prediabetes).Fasting plasma glucose results greater than or equal to 126 mg/dL meet the criteria for diagno sis of diabetes. In the absence of unequivocal hyperglycemia, results should be confirmed by repeattesting. In a patient with classic symptoms of hyperglycemia or hyperglycemic crisis, random plasmaglucose results greater than or equal to 200 mg/dL meet the criteria for diagnosis of diabetes.Reference: Standards of Medical Care in Diabetes 2016, [place] Diabetes Association. Diabetes Care. 2016.39(Suppl 1).Performed By: #### 52429-0, 22065-3 ####[facility] LABCL[facility] [id number] [place] [address] [place] AMERICAPhosphate [Mass/Vol]5.1 mg/dLHigh2.7-4.8CWyandot Memorial Hospitalment on above:Order Comment: Specimen Type: BLOOD SPECIMENOrdering Facility: [facility] Address:[address] [place], [place] [address]Performed By: #### 71288-5, 32246-2 ####[facility] [id number] [place] [address] [place] AMERICAPotassium [Moles/Vol]4.1 mmol/LNormal3.7-5.1CMercy Health [facility] Comment on above:Order Comment: Specimen Type: BLOOD SPECIMENOrdering Facility: [facility] Address:[address] [place] [address] Performed By: #### 29614-1, 08112-2 ####[facility]CL[facility] [id number] [place] [address] [place] Sodium [Moles/Vol]141 mmol/ZMczgxl183-093NazorjvqbUniversity Hospitals Health System on above:Order Comment: Specimen Type: BLOOD SPECIMENOrdering Facility: [facility] Address:[address] [place], [place] [address]Performed By: #### 07056-3, 37714-7 ####[facility]CL[facility] [id number] [place] [address] [place] AMERICAUrea nitrogen [Mass/Vol]12 mg/dLNormal7-21[facility] HospitalComup health system on above:Order Comment: Specimen Type: BLOOD SPECIMENOrdering Facility: [facility] Address:[address] [place], [place] [address]Performed By: #### 79843- 9, 22447-8 ####[facility] LABCL[facility] [id number] [place] [address] OF [facility] HOSPITALCBC panel Auto (Bld)on 71-04-6779Nccysawzxyo distribution width (RBC) [Ratio]15.3 %High11.5-15.0 [facility] HospitalComment on above:Order Comment: Specimen Type: BLOOD SPECIMENOrdering Facility: [facility] Address:[address] [place], [place] [address]Performed By: #### 84013-5 ####[facility] [id number] [address] STATES OF [facility]LEY HOSPITALHematocrit (Bld) [Volume fraction]34.4 %Low36.0-46.0[facility] HospitalComup health system on above:Order Comment: Specimen Type: BLOOD SPECIMENOrdering Facility: [facility] Address:[address] [place], [place] [address]Performed By: #### 60054-2 ####[facility] [id number] [place] [address] [place] Hemoglobin (Bld) [Mass/Vol]11.1 g/dLLow11.5-15.5CMercy [facility] Comment on above:Order Comment: Specimen Type: BLOOD SPECIMENOrdering Facility: [facility] Address:[address] [place] [address] Performed By: #### 85825-0 ####[facility] [id number] [place] [address] [place] MCH (RBC) [Entitic mass]27.8 ljYdtjdc80.0-34.0[facility] on above:Order Comment: Specimen Type: BLOOD SPECIMENOrdering Facility: [facility] Address:[address] [place] [address] Performed By: #### 21102-2 ####[facility] [id number] [place] [address] [place] MCHC (RBC) [Mass/Vol]32.3 g/gZIcjsbj99.5-36.0[facility] on above:Order Comment: Specimen Type: BLOOD SPECIMENOrdering Facility: [facility] Address:[address] [place] [address] Performed By: #### 97647-5 ####[facility] [id number] [place] [address] [place] MCV (RBC) [Entitic vol]86.0 tPHnxypf67.0-100.0[facility] on above:Order Comment: Specimen Type: BLOOD SPECIMENOrdering Facility: [facility] Address:[address] [place] [address] Performed By: #### 23118-3 ####[facility] [id number] [place] [address] [place] Nucleated RBC (Bld) [#/Vol]10*3/uLNormal<0.01[facility] on above:Order Comment: Specimen Type: BLOOD SPECIMENOrdering Facility: [facility] Address:[address] [place] [address] Performed By: #### 85722-9 ####[facility] [id number] [place] [address] [place] Platelet mean volume (Bld) [Entitic vol]10.5 fLNormal9.0-12.7CHolmes [facility] on above:Order Comment: Specimen Type: BLOOD SPECIMENOrdering Facility: [facility] Address:[address] [place], [place] [address]Performed By: #### 11040-2 ####[facility] [id number] [place] [address] [place] Platelets (Bld) [#/Vol]232 10*3/gYDodbew680-731IesvnbzphUniversity Hospitals Health System on above:Order Comment: Specimen Type: BLOOD SPECIMENOrdering Facility: [facility] Address:[address] [place] [address] Performed By: #### 92614-4 ####[facility] [id number] [address] [place] RBC (Bld) [#/Vol]4.00 10*6/uLNormal3.90-5.20[facility] on above:Order Comment: Specimen Type: BLOOD SPECIMENOrdering Facility: [facility] Address:[address] [place], [place] [address]Performed By: #### 41970-0 ####[facility] [id number] [address] STATES OF AMERICAWBC (Bld) [#/Vol]6.53 10*3/uLNormal3.70-11.00[facility] on above:Order Comment: Specimen Type: BLOOD SPECIMENOrdering Facility: [facility] Address:[address] [place], [place] [address]Performed By: #### 69877-4 ####[facility] [id number] [place] [address] [place] AMERICACONSULTon 61-25-2303KDLUWCLQphyuv Wood County HospitalCONSULT PROGon 47-23-8233TNCBSMA PROGNormalWood County HospitalMagnesium SerPl-mCncon 32-54-6654Ogkjifpad [Mass/Vol]1.8 mg/dL Normal1.7-2.3CHolmes [facility] on above:Order Comment: Specimen Type: BLOOD SPECIMENOrdering Facility: [facility] Address:[address] [place], [place] [address]Performed By: #### 33251-6, 83748-6, 8 ####[facility] [id number] [place] [address] [place] AMERICARenal function 2000 panelon 55-40-8268Tvrxscl [Mass/Vol]3.3 g/dLLow3.9-4.9CMercy Health Urbana HospitalComment on above:Order Comment: Specimen Type: BLOOD SPECIMENOrdering Facility: [facility] Address:[address] [place] [address] Performed By: #### 52247-2, 39441-1, 8 ####[facility] [id number], [place] [address] [place] AMERICAAnion gap [Moles/Vol]10 mmol/LNormal8-15Wood County HospitalComment on above:Order Comment: Specimen Type: BLOOD SPECIMENOrdering Facility: [facility] Address:[address] [place] [address] Performed By: #### 29900-5, 08176-0, 8 ####[facility] [id number], [place] [address] [place] AMERICACalcium [Mass/Vol]9.1 mg/dLNormal8.5-10.2CMercy Health [facility] Comment on above:Order Comment: Specimen Type: BLOOD SPECIMENOrdering Facility: [facility] Address:[address] [place] [address] Performed By: #### 40740-2, 12076-9, 8 ####[facility] [id number] [address] [address] [place] OF AMERICAChloride [Moles/Vol]107 mmol/KOjvcuo83-817FmefikgqfWood County Hospital Comment on above:Order Comment: Specimen Type: BLOOD SPECIMENOrdering Facility: [facility] Address:[address] [place] [address] Performed By: #### 66344-9, 15117-8, 257-8 ####[facility] [id number] VIL[place] [id number] [place] AMERICACO2 [Moles/Vol]27 mmol/ZYqxdme47-05EddazrrhwUniversity Hospitals Health System on above:Order Comment: Specimen Type: BLOOD SPECIMENOrdering Facility: [facility] Address:[address] [place], [place] [address]Performed By: #### 90644-8, 42219-1, 257-8 ####[facility] [id number], [place] [address] [place] Creatinine [Mass/Vol]0.59 mg/dLNormal0.58-0.96[facility] on above:Order Comment: Specimen Type: BLOOD SPECIMENOrdering Facility: [facility] Address:[address] [place] [address] Performed By: #### 17789-8, 07920-1, 8 ####[facility] [id number], [place] [address] [place] [facility]LEY HOSPITALCreatinine and Glomerular filtration rate.predicted panel (S/P/Bld)120 mL/min/1.73m???Normal>=60[facility] on above:Order Comment: Specimen Type: BLOOD SPECIMENOrdering Facility: [facility] Address:[address] [place], [place] [address]Result Comment: Estimated Glomerular Filtration Rate (eGFR) is calculated using the 2020 CKD-EPI cre atinine equation. This equation utilizes serum creatinine, sex, and age as parameters. The creatinine assay has traceable calibration to isotope dilution- mass spectrometry. Refer to KDIGO guidelines for clinical interpretation. In patients with unstable renal function, e.g. those with acute kidney injury, the eGFR may not accurately reflect actual GFR.Performed By: #### 64526-1, 88201-4, 257-8 ####[facility] [id number] [address] [place] AMERICAGlucose [Mass/Vol]74 mg/dLNormal 74-99[facility] on above:Order Comment: Specimen Type: BLOOD SPECIMENOrdering Facility: [facility] Address:[address] [place], [place] [address]Result Comment: The [place] Diabetes Association (ADA) provides guidance for cutoff [...] unequivocal hyperglycemia, results should be confirmed by repeattesting. In a patient with classic symptoms of hyperglycemia or hyperglycemic crisis, random plasmaglucose results greater than or equal to 200 mg/dL meet the criteria for diagnosis of diabetes.Reference: Standards of Medical Care in Diabetes 2016, [place] [employer]. Diabetes Care. 2016.39(Suppl 1).Performed By: #### 69127- 9, 31415-0, 2571-8 ####[facility] [id number] VILLE [id number] [place] AMERICAPhosphate [Mass/Vol] 3.5 mg/dLNormal2.7-4.8CHolmes [facility] on above:Order Comment: Specimen Type: BLOOD SPECIMENOrdering Facility: [facility] Address:[address] [place], [place] [address]Performed By: #### 00848-6, 00539-4, 2571-8 ####[facility] [id number] VILLE [id number] [place] AMERICAPotassium [Moles/Vol]3.7 mmol/L Normal3.7-5.1ClevelWayne HealthCare [facility] on above:Order Comment: Specimen Type: BLOOD SPECIMENOrdering Facility: [facility] Address:[address] [place], [place] [address]Performed By: #### 86167-4, 25467-7, 257-8 ####[facility] [id number] [place] [address] [place] [facility] HOSPITALSodium [Moles/Vol]144 mmol/L Txbdvq057-175VelsuezqsUniversity Hospitals Health System on above:Order Comment: Specimen Type: BLOOD SPECIMENOrdering Facility: [facility] Address:[address] [place], [place] [address]Performed By: #### 06187-0, 66207-7, 8 ####[facility] [id number] [place] [address] [place] AMERICAUrea nitrogen [Mass/Vol]5 mg/dL Low7-21[facility] on above:Order Comment: Specimen Type: BLOOD SPECIMENOrdering Facility: [facility] Address:[address] [place], [place] [address]Performed By: #### 47159-1, 54162-1, 8 ####[facility] [id number][place] [address] [place] AMERICATrigl SerPl-mCncon 08-01-2024 Triglyceride [Mass/Vol]148 mg/dLNormal<150[facility] on above:Order Comment: Specimen Type: BLOOD SPECIMENOrdering Facility: [facility] Address:[address] [place], [place] [address]Result Comment: <150 mg/dL, Normal 150-199 mg/dL, Borderline high 200-499 mg/dL, High>499 mg/dL, Very highReference:1. National Cholesterol Education Program ATP III Guideline At-A-Glance QuickDesk Reference: National Heart, Lung, and Blood [place]. National Institutes of Health. 2001: NIHPublication No. 01-3305.Performed By: #### 47227-5, 02183-7, 257-8 ####[facility] [id number] [place] [id number] [place] Triglyceride [Mass/Vol]on 33-48-1934RZEBXVV TIME0 hrsNoRiverside Methodist Hospital on above:Order Comment: Specimen Type: BLOOD SPECIMENOrdering Facility: [facility] Address:[address] [place], [place] [address]Result Comment: NPO, receiving TPN since 2129Performed By: #### 37824-9, 75634-0, 2571-8 ####[facility] [id number] [place] [address] [place] [facility] HOSPITALC diff Tox gens Stl Ql CARLOTTA+probeon 07-31-2024. difficile toxin genes CARLOTTA+probe Ql (Stl)NegativeNormal Negative for C. difficile toxin by PCRUniversity Hospitals Health System on above:Order Comment: Specimen Type: STOOL SPECIMENOrdering Facility: [facility] Address:[address] [place], [place] [address]Performed By: #### 64318-6 ####[facility] [id number] [place] [address] [place] AMERICACASE MGT INIT ASSon 61-35-5013LVCI MGT INIT [facility] HospitalCB panel Auto (Bld)on 58-76-5127Ijvrdsplxiz distribution width (RBC) [Ratio]15.5 %High 11.5-15.0[facility] on above:Order Comment: Specimen Type: BLOOD SPECIMENOrdering Facility: [facility] Address:[address] [place], [place] [address]Performed By: #### 83777-3 ####[facility] [id number] [place] [address] [place] [facility] VALLEY HOSPITALHematocrit (Bld) [Volume fraction]34.1 %Low36.0-46.0 [facility] on above:Order Comment: Specimen Type: BLOOD SPECIMENOrdering Facility: [facility] Address:[address] [place], [place] [address]Performed By: #### 07606-8 ####[facility] [id number] [place] [address] [place] [facility] VALLEY HOSPITALHemoglobin (Bld) [Mass/Vol]10.9 g/dLLow11.5-15.5CHolmes [facility] on above:Order Comment: Specimen Type: BLOOD SPECIMENOrdering Facility: [facility] Address:[address] [place], [place] [address]Performed By: #### 26964-5 ####[facility] [id number] [place] [address] [place] MCH (RBC) [Entitic mass]28.2 sjGbillj58.0-34.0[facility] on above:Order Comment: Specimen Type: BLOOD SPECIMENOrdering Facility: [facility] Address:[address] [place] [address] Performed By: #### 56366-2 ####[facility] [id number] [place] [address] [place] MCHC (RBC) [Mass/Vol]32.0 g/cRAzjcoi18.5-36.0[facility] on above:Order Comment: Specimen Type: BLOOD SPECIMENOrdering Facility: [facility] Address:[address] [place] [address] Performed By: #### 62698-4 ####[facility] [id number] [place] [address] [place] MCV (RBC) [Entitic vol]88.3 nHKczfkb76.0-100.0[facility] on above:Order Comment: Specimen Type: BLOOD SPECIMENOrdering Facility: [facility] Address:[address] [place] [address] Performed By: #### 77251-6 ####[facility] [id number] [place] [address] [place] Nucleated RBC (Bld) [#/Vol]10*3/uLNormal<0.01[facility] on above:Order Comment: Specimen Type: BLOOD SPECIMENOrdering Facility: [facility] Address:[address] [place] [address] Performed By: #### 41687-2 ####[facility] [id number] [place] [address] [place] Platelet mean volume (Bld) [Entitic vol]11.6 fLNormal9.0-12.7CHolmes County [facility] on above:Order Comment: Specimen Type: BLOOD SPECIMENOrdering Facility: [facility] Address:[address] [place], [place] [address]Performed By: #### 54360-3 ####[facility] [id number] [place] [address] [place] Platelets (Bld) [#/Vol]219 10*3/zHRerksq603-042KdvkcwbufUniversity Hospitals [facility] System on above:Order Comment: Specimen Type: BLOOD SPECIMENOrdering Facility: [facility] Address:[address] [place] [address] Performed By: #### 37472-9 ####[facility] [id number] [place] [address] [place] RBC (Bld) [#/Vol]3.86 10*6/uLLow3.90-5.20[facility] on above:Order Comment: Specimen Type: BLOOD SPECIMENOrdering Facility: [facility] Address:[address] [place], [place] [address]Performed By: #### 57711-2 ####[facility] [id number] [place] [address] [place] AMERICAWBC (Bld) [#/Vol]6.31 10*3/uLNormal3.70-11.00[facility] on above:Order Comment: Specimen Type: BLOOD SPECIMENOrdering Facility: [facility] Address:[address] [place], [place] [address]Performed By: #### 99741-1 ####[facility] [id number] [place] [id number] [place] AMERICACONSULTon 06-42-7750KFTKPOFCojzux Wood County HospitalCONSULT PROGon 30-76-4396TTBKUHP PROGNormalWood County HospitalCRP SerPl-mCncon 61-63-2817GLL [Mass/Vol]0.4 mg/dLNormal<0.9 [facility] on above:Order Comment: Specimen Type: BLOOD SPECIMENOrdering Facility: [facility] Address:[address] [place], [place] [address]Performed By: #### 61905-1, 33629-0, 1987-5, 64359-7, 46111- 8, 2571-8 ####[facility] [id number] [place] [id number] [place] AMERICACalprotectin (Stl) [Mass/Mass]on 23-54-2166XOCVFHDBROLB, FECAL INTERPElevatedAbnormalNormal [facility] on above:Order Comment: Specimen Type: STOOL SPECIMENOrdering Facility: [facility] Address:[address] [place], [place] [id number] Comment: Interpretation:<50.0 ug/g: Ufjsyr08.0 ug/g - 120.0 ug/g: Borderline elevated. Re-evaluation in 4-6 weeks is recommended if clinically indicated.>120.0 ug/g: ElevatedPerformed By: #### 13178-0 ####[facility] [id number] [place] [id number] [place] AMERICACALPROTECTIN, FECAL QUANTITATIVE 464 ug/gHigh<50[facility] on above:Order Comment: Specimen Type: STOOL SPECIMENOrdering Facility: [facility] Address:[address] [place], [place] [address]Performed By: #### 94368-8 ####[facility] [id number] [place] [address] [place] AMERICAGastrointestinal pathogens identified CARLOTTA+probe Nom (Stl)on 94-52-1657Cchtwkastxnde sp DNA CARLOTTA+probe Nom (Unsp spec)Not detectedNormalNot DetectedUniversity Hospitals Health System on above:Order Comment: Specimen Type: STOOL SPECIMENOrdering Facility: [facility] Address:[address] [place], [place] [address]Performed By: #### 44230-2 ####[facility] [id number] [place] [address] [place] AMERICASalmonella sp DNA CARLOTTA+probe Ql (Unsp spec)Not detectedNormalNot DetectedWood County Hospital Comment on above:Order Comment: Specimen Type: STOOL SPECIMENOrdering Facility: [facility] Address:[address] [place] [address] Performed By: #### 40782-3 ####[facility] [id number] [place] [address] [place] Shiga toxin stx gene CARLOTTA+probe Nom (Unsp spec)Not detectedNormalNot Detected [facility] on above:Order Comment: Specimen Type: STOOL SPECIMENOrdering Facility: [facility] Address:[address] [place], [place] [address]Performed By: #### 69700-3 ####[facility] [id number] [place] [address] [place] AMERICAShigella sp DNA CARLOTTA+probe Ql (Unsp spec)Not detectedNormalNot Detected [facility] on above:Order Comment: Specimen Type: STOOL SPECIMENOrdering Facility: [facility] Address:[address] [place], [place] [address]Performed By: #### 63268-9 ####[facility] [id number] [address] [address] [place] OF AMERICAHISTORY PHYSICALon 81-21-0184QLUTXNX PHYSICALNormalCMercy Health Urbana HospitalHepatic function 2000 panelon 90-31-0964FBV [Catalytic activity/Vol]89 U/BXznrse61-535MspqshzmlUniversity Hospitals Health System on above:Order Comment: Specimen Type: BLOOD SPECIMENOrdering Facility: [facility] Address:[address] [place], [place] [address]Performed By: #### 11918-8, 87782-4, 1987-11, 16452-4, 31265-5, 8 ####[facility] [id number] [place] [id number] [place] ALT [Catalytic activity/Vol]34 U/LNormal7-38[facility] on above:Order Comment: Specimen Type: BLOOD SPECIMENOrdering Facility: [facility] Address:[address] [place], [place] [address]Performed By: #### 00641-3, 99353-5, 1987-11, 48452-8, 93097-6, 8 ####[facility] [id number] [place] [address] [place] AMERICAAST [Catalytic activity/Vol]57 U/VOrlo21-05WirmcczjbUniversity Hospitals Health System on above:Order Comment: Specimen Type: BLOOD SPECIMENOrdering Facility: [facility] Address:[address] [place], [place] [address]Performed By: #### 36387-4, 14460-8, 1987-11, 74238-4, 94748-1, 8 ####[facility] [id number] [place] [id number] [place] AMERICABilirubin [Mass/Vol]0.3 mg/dL Normal0.2-1.3[facility] ClevelandComment on above:Order Comment: Specimen Type: BLOOD SPECIMENOrdering Facility: [facility] Address:[address] [place], [place] [address]Performed By: #### 81515-1, 42350-9, 1987-11, 95152-4, 97540-4, 2578 ####[facility] [id number] [place] [address] [place] Bilirubin.conjugated [Mass/Vol]0.1 mg/dLNormal<0.3CMercy Health Urbana Hospital Comment on above:Order Comment: Specimen Type: BLOOD SPECIMENOrdering Facility: [facility] Address:[address] [place] [address] Performed By: #### 76889-6, 88174-7, 1987-11, 40429-6, 81832-8, 2578 ####[facility] [id number] [place] [address] [place] AMERICAProtein [Mass/Vol]6.2 g/dLLow 6.3-8.0[facility] HospitalComup health system on above:Order Comment: Specimen Type: BLOOD SPECIMENOrdering Facility: [facility] Address:[address] [place], [place] [address]Performed By: #### 36105-5, 19946-9, 1987-11, 53527-9, 59611-5, 2578 ####[facility] [id number] [place] [address] [place] AMERICAMagnesium SerPl-mCncon 97-96-1294Hqruzhocc [Mass/Vol]1.7 mg/dLNormal1.7-2.3CMercy Health [facility]rbana Hospital Comment on above:Order Comment: Specimen Type: BLOOD SPECIMENOrdering Facility: [facility] Address:[address] [place] [address] Performed By: #### 07988-2, 35718-0, 1987-11, 55922-9, 59850-3, 257-8 ####[facility] [id number] [place] [address] [place] AMERICAProcalcitonin SerPl-mCncon 53-49-5487Grnobgpjurzpg [Mass/Vol]ng/mLNormal<0.09[facility] Comment on above:Order Comment: Specimen Type: BLOOD SPECIMENOrdering Facility: [facility] Address:[address] [place], [place] [address]Result Comment: For a guided interpretation of test results, please visit the Change in Procalcitonin Calculator, [email or web address].Performed By: #### 74249-2, 22336-3, 1987-11, 17069-3, 91338-9, 257-8 ####[facility] [id number] [address] OF AMERICARenal Func 2000 Pnl SerPlon 86-32-4111Qvoxntq [Mass/Vol]3.3 g/dLLow3.9-4.9CMercy Health Urbana HospitalComment on above:Order Comment: Specimen Type: BLOOD SPECIMENOrdering Facility: [facility] Address:[address] [place], [place] [address]Performed By: #### 09696-3, 34824-2, 1987-11, 42607-6, 16226-2, 2571-8 ####[facility] [id number] [address] STATES OF AMERICARenal function 2000 panelon 26-76-6085Xoyfv gap [Moles/Vol]12 mmol/LNormal8-15[facility] HospitalComup health system on above:Order Comment: Specimen Type: BLOOD SPECIMENOrdering Facility: [facility] Address:[address] [place], [place] [address]Performed By: #### 54545-3, 72391-3, 1987-11, 46202-7, 31233-2, 2571-8 ####[facility] [id number] [place] [id number] [place] AMERICACalcium [Mass/Vol]8.6 mg/dLNormal 8.5-10.2CHolmes County [facility] on above:Order Comment: Specimen Type: BLOOD SPECIMENOrdering Facility: [facility] Address:[address] [place], [place] [address]Performed By: #### 97168-9, 22870-5, 1987-11, 50594-7, 36815-7, 2578 ####[facility] [id number] [place] [address] [place] AMERICAChloride [Moles/Vol]106 mmol/ENldxiq11-927VwcbrahnvUniversity Hospitals Health System on above: Order Comment: Specimen Type: BLOOD SPECIMENOrdering Facility: [facility] Address:[address] [place], [place] [address]Performed By: #### 52786- 9, 63580-2, 1987-11, 67637-7, 58479-6, 2571-02 ####[facility] [id number] [place] [address] [place]2 [Moles/Vol]22 mmol/DByetjh60-86XcvagiljcUniversity Hospitals Health System on above:Order Comment: Specimen Type: BLOOD SPECIMENOrdering Facility: [facility] Address:[address] [place], [place] [id number] By: #### 66653-2, 88751-1, 1987-11, 24663-1, 36867-8, 2571-02 ####[facility] [id number] [place] [id number] [place] AMERICACreatinine [Mass/Vol]0.65 mg/dLNormal0.58-0.96[facility] on above:Order Comment: Specimen Type: BLOOD SPECIMENOrdering Facility: [facility] Address:[address] [place], [place] [id number] By: #### 85196-8, 08584-1, 1987-11, 78751-9, 26050-7, 257-8 ####[facility] [id number] [address] [address] [place] OF AMERICACreatinine and Glomerular filtration rate.predicted panel (S/P/Bld)117 mL/min/1.73m???Normal>=60[facility] on above:Order Comment: Specimen Type: BLOOD SPECIMENOrdering Facility: [facility] Address:[address] [place], [place] [address]Result Comment: Estimated Glomerular Filtration Rate (eGFR) is calculated using the 2020 CKD-EPI creatinine equation. This equation utilizes serum creatinine, sex, and age as parameters. The creatinine assay has traceable calibration to isotope dilution-mass spectrometry. Refer to KDIGO guidelines for clinical interpretation. In patients with unstable renal function, e.g. those with acute kidney injury, the eGFR may not accurately reflect actual GFR.Performed By: #### 38132-4, 54078-6, 1987-11, 78505-7, 82236- 8, 257-8 ####[facility] [id number] [address] [address] [place] AMERICAGlucose [Mass/Vol]90 mg/dPLtglhg65-71TjfbmnrcmUniversity Hospitals Health System on above:Order Comment: Specimen Type: BLOOD SPECIMENOrdering Facility: [facility] Address:[address] [place] [id number] Comment: The [place] Diabetes Association (ADA) provides guidance for cutoff [...] symptoms of hyperglycemia or hyperglycemic crisis, random plasmaglucose results greater than or equal to 200 mg/dL meet the criteria for diagnosis of diabetes.Reference: Standards of Medical Care in Diabetes 2016, [place] [employer]. Diabetes Care. 2016.39(Suppl 1). Performed By: #### 46463-4, 42585-0, 1987-11, 35672-4, 31443-0, 2570-8 ####[facility] [id number] [address] [address] [place] AMERICAPhosphate [Mass/Vol]3.6 mg/dL Normal2.7-4.8CHolmes [facility] on above:Order Comment: Specimen Type: BLOOD SPECIMENOrdering Facility: [facility] Address:[address] [place], [place] [address]Performed By: #### 80333-6, 84455-1, 1987-11, 10484-1, 48673-3, 8 ####[facility] [id number] [place] [address] [place] AMERICAPotassium [Moles/Vol]4.1 mmol/LNormal3.7-5.1CHolmes [facility] on above: Order Comment: Specimen Type: BLOOD SPECIMENOrdering Facility: [facility] Address:[address] [place], [place] [address]Performed By: #### 34165- 9, 84050-6, 1987-11, 80592-5, 17538-7, 2571-02 ####[facility] [id number] [place] [address] [place] AMERICASodium [Moles/Vol]140 mmol/RQpemlg795-870VfypddjijWood County Hospital Comment on above:Order Comment: Specimen Type: BLOOD SPECIMENOrdering Facility: [facility] Address:[address] [place] [address] Performed By: #### 24772-9, 64872-2, 1987-11, 81080-4, 51685-5, 2570-8 ####[facility] [id number] [place] [address] [place] AMERICAUrea nitrogen [Mass/Vol]4 mg/dL Low7-21[facility] on above:Order Comment: Specimen Type: BLOOD SPECIMENOrdering Facility: [facility] Address:[address] [place], [place] [address]Performed By: #### 41903-0, 08109-8, 1987-11, 32616-5, 28762-2, 2570-8 ####[facility] [id number] [place] [address] [place] AMERICATrigl SerPl-mCncon 13-25-1582Rrqmogghbgvw [Mass/Vol]162 mg/dLHigh<150[facility] Comment on above:Order Comment: Specimen Type: BLOOD SPECIMENOrdering Facility: [facility] Address:[address] [place], [place] [address]Result Comment: <150 mg/dL, Normal 150-199 mg/dL, Borderline high 200-499 mg/dL, High>499 mg/dL, Very highReference:1. National Cholesterol Education Program ATP III Guideline At-A-Glance QuickDesk Reference: National Heart, Lung, and Blood [place]. National Institutes of Health. 2001: NIHPublication No. 01-3305. Performed By: #### 47314-5, 77238-4, 1987-11, 41436-8, 76192-8, 2570-8 ####[facility] [id number] [place] [address] [place] AMERICATriglyceride [Mass/Vol]on 25-11-9387IFFSMZC TIMEunknownNormalWood County HospitalComment on above: Order Comment: Specimen Type: BLOOD SPECIMENOrdering Facility: [facility] Address:[address] [place], [place] [address]Performed By: #### 20995- 9, 72135-2, 1987-11, 23539-2, 88589-7, 2570-8 ####[facility] [id number] [place] [id number] [place] AMERICAXR CHEST 1V FRONTAL PORTon 17-12-6296DH CHEST 1V FRONTAL PORTNormal Wood County HospitalBacteria Bld Culton 70-91-1534Kifbdtbh identified Cx Nom (Bld)CULTURE, BLOOD: No growth 5 daysNormalClevelWayne HealthCare Main Campus on above:Performed By: #### 600-7 ####[facility] [id number] [place] [address] [place] AMERICABacteria identified Cx Nom (Bld)NormalUniversity Hospitals Health System on above:Performed By: #### 600-7 ####[facility] [id number] [place] [address] [place] AMERICACB W Auto Differential panel (Bld)on 54-74-2763Vnnqugbed (Bld) [#/Vol]0.03 10*3/uLNormal<0.11ClevelWayne HealthCare Main Campus on above:Order Comment: Specimen Type: BLOOD SPECIMENOrdering Facility: [facility] Address:[address] [place], [place] [address]Performed By: #### 36348-1 ####[facility] [id number] [place] [address] [place] Basophils/100 WBC (Bld)0.4 %NormalUniversity Hospitals Health System on above: Order Comment: Specimen Type: BLOOD SPECIMENOrdering Facility: [facility] Address:[address] [place], [place] [address]Performed By: #### 52423- 8 ####[facility] [id number] [place] [address] [place] AMERICADifferential cell count method Nom (Bld)AutoNormalClevelWayne HealthCare Main Campus on above:Order Comment: Specimen Type: BLOOD SPECIMENOrdering Facility: [facility] Address:[address] [place], [place] [address]Performed By: #### 06227-7 ####[facility] [id number] [place] [address] [place] AMERICAEosinophils (Bld) [#/Vol]0.19 10*3/uLNormal<0.46[facility] on above:Order Comment: Specimen Type: BLOOD SPECIMENOrdering Facility: [facility] Address:[address] [place], [place] [address]Performed By: #### 23014-7 ####[facility] [id number] [place] [address] [place] AMERICAEosinophils/100 WBC (Bld)2.7 % NormalUniversity Hospitals Health System on above:Order Comment: Specimen Type: BLOOD SPECIMENOrdering Facility: [facility] Address:[address] [place], [place] [address]Performed By: #### 94288-3 ####[facility] [id number] [place] [address] [place] AMERICAErythrocyte distribution width (RBC) [Ratio]15.2 %High11.5-15.0 [facility] Springfieldment on above:Order Comment: Specimen Type: BLOOD SPECIMENOrdering Facility: [facility] Address:[address] [place], [place] [address]Performed By: #### 28982-8 ####[facility] [id number] [place] [address] [place] AMERICAHematocrit (Bld) [Volume fraction]34.9 %Low36.0-46.0[facility] on above:Order Comment: Specimen Type: BLOOD SPECIMENOrdering Facility: [facility] Address:[address] [place], [place] [address]Performed By: #### 53927-0 ####[facility] [id number] [place] [address] [place] Hemoglobin (Bld) [Mass/Vol]11.2 g/dLLow11.5-15.5CMercy Health [facility] Comment on above:Order Comment: Specimen Type: BLOOD SPECIMENOrdering Facility: [facility] Address:[address] [place] [address] Performed By: #### 52708-4 ####[facility] [id number] [place] [address] [place] Immature granulocytes (Bld) [#/Vol]0.04 10*3/uLNormal<0.10[facility] HospitalComment on above:Order Comment: Specimen Type: BLOOD SPECIMENOrdering Facility: [facility] Address:[address] [place], [place] [address]Performed By: #### 00996-8 ####[facility] [id number] [place] [address] [place] Immature granulocytes/100 WBC (Bld)0.6 %NormalUniversity Hospitals Health System on above:Order Comment: Specimen Type: BLOOD SPECIMENOrdering Facility: [facility] Address:[address] [place] [address] Performed By: #### 97155-3 ####[facility] [id number] [place] [address] [place] Lymphocytes (Bld) [#/Vol]1.11 10*3/uLNormal1.00-4.00[facility] Comment on above:Order Comment: Specimen Type: BLOOD SPECIMENOrdering Facility: [facility] Address:[address] [place] [address] Performed By: #### 83518-4 ####[facility] [id number] [place] [address] [place] Lymphocytes/100 WBC (Bld)15.6 %NormalUniversity Hospitals Health System on above: Order Comment: Specimen Type: BLOOD SPECIMENOrdering Facility: [facility] Address:[address] [place], [place] [address]Performed By: #### 44175- 8 ####[facility] [id number] [address]CL[place] AVENUEDESK [address] (RBC) [Entitic mass]28.3 pg Qmfqbo70.0-34.0[facility] on above:Order Comment: Specimen Type: BLOOD SPECIMENOrdering Facility: [facility] Address:[address] [place], [place] [address]Performed By: #### 22954-0 ####[facility] [id number] [address] (RBC) [Mass/Vol]32.1 g/dL Wznqre85.5-36.0[facility] on above:Order Comment: Specimen Type: BLOOD SPECIMENOrdering Facility: [facility] Address:[address] [place], [place] [address]Performed By: #### 87483-0 ####[facility] [id number] [address] (RBC) [Entitic vol]88.1 fL Eltcas83.0-100.0[facility] on above:Order Comment: Specimen Type: BLOOD SPECIMENOrdering Facility: [facility] Address:[address] [place], [place] [address]Performed By: #### 06889-4 ####[facility] [id number] [place] [address] [place] AMERICAMonocytes (Bld) [#/Vol]0.40 10*3/uLNormal<0.87[facility] on above:Order Comment: Specimen Type: BLOOD SPECIMENOrdering Facility: [facility] Address:[address] [place], [place] [address]Performed By: #### 17635-4 ####[facility] [id number] [place] [address] [place] AMERICAMonocytes/100 WBC (Bld)5.6 % NormalUniversity Hospitals Health System on above:Order Comment: Specimen Type: BLOOD SPECIMENOrdering Facility: [facility] Address:[address] [place], [place] [address]Performed By: #### 15631-5 ####[facility] [id number] [place] [address] [place] AMERICANeutrophils (Bld) [#/Vol]5.33 10*3/uLNormal1.45-7.50[facility] on above:Order Comment: Specimen Type: BLOOD SPECIMENOrdering Facility: [facility] Address:[address] [place], [place] [address]Performed By: #### 84106-8 ####[facility] [id number] [place] [address] [place] AMERICANeutrophils/100 WBC (Bld)75.1 %NormalWood County HospitalComment on above:Order Comment: Specimen Type: BLOOD SPECIMENOrdering Facility: [facility] Address:[address] [place] [address] Performed By: #### 71164-3 ####[facility] [id number] [place] [address] [place] Nucleated RBC (Bld) [#/Vol]10*3/uLNormal<0.01[facility] HospitalComup health system on above:Order Comment: Specimen Type: BLOOD SPECIMENOrdering Facility: [facility] Address:[address] [place] [address] Performed By: #### 28656-1 ####[facility] [id number] [place] [address] [place] Nucleated RBC/100 WBC (Bld) [Ratio]0.0 /100 WBCNormalCMercy Health [facility]rbana Hospital Comment on above:Order Comment: Specimen Type: BLOOD SPECIMENOrdering Facility: [facility] Address:[address] [place] [address] Performed By: #### 76479-9 ####[facility] [id number] [place] [address] [place] Platelet mean volume (Bld) [Entitic vol]10.7 fLNormal9.0-12.7CHolmes [facility] on above:Order Comment: Specimen Type: BLOOD SPECIMENOrdering Facility: [facility] Address:[address] [place], [place] [address]Performed By: #### 70704-5 ####[facility] [id number] [place] [address] [place] Platelets (Bld) [#/Vol]194 10*3/vKDtreuh637-351UaqexqelnUniversity Hospitals Health System on above:Order Comment: Specimen Type: BLOOD SPECIMENOrdering Facility: [facility] Address:[address] [place] [address] Performed By: #### 52218-9 ####[facility] [id number] [place] [address] [place] RBC (Bld) [#/Vol]3.96 10*6/uLNormal3.90-5.20[facility] on above:Order Comment: Specimen Type: BLOOD SPECIMENOrdering Facility: [facility] Address:[address] [place], [place] [address]Performed By: #### 50858-7 ####[facility] [id number] [place] [address] [place] AMERICAWBC (Bld) [#/Vol]7.10 10*3/uLNormal3.70-11.00[facility] on above:Order Comment: Specimen Type: BLOOD SPECIMENOrdering Facility: [facility] Address:[address] [place], [place] [address]Performed By: #### 60154-3 ####[facility] [id number] [place] [address] [place] AMERICACRP SerPl-mCncon 25-96-0976LNQ [Mass/Vol]0.4 mg/dLNormal<0.9CHolmes [facility] on above:Order Comment: Specimen Type: BLOOD SPECIMENOrdering Facility: [facility] Address:[address] [place], [place] [address]Performed By: #### , , 2776-07, ####[facility] [id number] [address] [address] [place] OF AMERICACT ENTEROGRAPHY W IVCONon 29-76-2914FQ ENTEROGRAPHY W IVCONNormalWood County HospitalComprehensive metabolic 2000 panelon 71-41-2649Kqpwmsh [Mass/Vol]3.2 g/dLLow3.9-4.9CHolmes [facility] on above:Order Comment: Specimen Type: BLOOD SPECIMENOrdering Facility: [facility] Address:[address] [place], [place] [address]Performed By: #### 1987-11, , 2776-07, ####[facility] [id number] [address] [address] [place] AMERICAALP [Catalytic activity/Vol]90 U/NUvoyqr73-785BkniczwvfUniversity Hospitals Health System on above:Order Comment: Specimen Type: BLOOD SPECIMENOrdering Facility: [facility] Address:[address] [place], [place] [address]Performed By: #### , , 2776-07, ####[facility] [id number] [address] [address] [place] AMERICAALT [Catalytic activity/Vol]25 U/LNormal7-38[facility] on above:Order Comment: Specimen Type: BLOOD SPECIMENOrdering Facility: [facility] Address:[address] [place], [place] [address]Performed By: #### 1987-11, , 2776-07, ####[facility] [id number] [place] [address] [place] Anion gap [Moles/Vol]12 mmol/LNormal8-15[facility] on above:Order Comment: Specimen Type: BLOOD SPECIMENOrdering Facility: [facility] Address:[address] [place], [place] [address]Performed By: #### 1987-11, , 2776-07, ####[facility] [id number] [place] [address] [place] AST [Catalytic activity/Vol]51 U/LWlbt62-69WgnpjweofUniversity Hospitals Health System on above:Order Comment: Specimen Type: BLOOD SPECIMENOrdering Facility: [facility] Address:[address] [place], [place] [address]Performed By: #### 1987-11, , 2776-07, ####[facility] [id number] [place] [address] [place] Bilirubin [Mass/Vol]mg/dLLow0.2-1.3CHolmes [facility] on above: Order Comment: Specimen Type: BLOOD SPECIMENOrdering Facility: [facility] Address:[address] [place], [place] [address]Performed By: #### , , 2776-07, ####[facility] [id number] [place] [id number] [place] AMERICACalcium [Mass/Vol]8.7 mg/dLNormal8.5-10.2CHolmes County [facility] on above: Order Comment: Specimen Type: BLOOD SPECIMENOrdering Facility: [facility] Address:[address] [place], [place] [address]Performed By: #### , , 2776-07, ####[facility] [id number] [place] [address] [place] Chloride [Moles/Vol]106 mmol/XKbrozu54-786RftdzjwezUniversity Hospitals Health System on above:Order Comment: Specimen Type: BLOOD SPECIMENOrdering Facility: [facility] Address:[address] [place], [place] [address]Performed By: #### 1987-11, , 2776-07, ####[facility] [id number] [place] [address] [place] CO2 [Moles/Vol]21 mmol/WQvx00-27BpesnggxrUniversity Hospitals Health System on above:Order Comment: Specimen Type: BLOOD SPECIMENOrdering Facility: [facility] Address:[address] [place], [place] [address]Performed By: #### , , 2776-07, ####[facility] [id number] [place] [address] [place] Creatinine [Mass/Vol]0.53 mg/dLLow0.58-0.96[facility] on above:Order Comment: Specimen Type: BLOOD SPECIMENOrdering Facility: [facility] Address:[address] [place], [place] [address]Performed By: #### 1987-11, , 2776-07, ####[facility] [id number] [place] [address] [place] Creatinine and Glomerular filtration rate.predicted panel (S/P/Bld)123 mL/min/1.73m???Normal>=60[facility] on above:Order Comment: Specimen Type: BLOOD SPECIMENOrdering Facility: [facility] Address:[address] [place], [place] [address]Result Comment: Estimated Glomerular Filtration Rate (eGFR) is calculated using the 2020 CKD-EPI cre atinine equation. This equation utilizes serum creatinine, sex, and age as parameters. The creatinine assay has traceable calibration to isotope dilution- mass spectrometry. Refer to KDIGO guidelines for clinical interpretation. In patients with unstable renal function, e.g. those with acute kidney injury, the eGFR may not accurately reflect actual GFR.Performed By: #### 1987-11, , 2776-07, ####[facility] [id number] [address] [address] [place] AMERICAGlucose [Mass/Vol]82 mg/cUGjacni65-09EhrdxvbewUniversity Hospitals Health System on above:Order Comment: Specimen Type: BLOOD SPECIMENOrdering Facility: [facility] Address:[address] [place], [place] [address]Result Comment: The [place] Diabetes Association (ADA) provides guidance for cutoff [...] symptoms of hyperglycemia or hyperglycemic crisis, random plasmaglucose results greater than or equal to 200 mg/dL meet the criteria for diagnosis of diabetes.Reference: Standards of Medical Care in Diabetes 2016, [place] [employer]. Diabetes Care. 2016.39(Suppl 1). Performed By: #### 1987-11, , 2776-07, ####[facility] [id number] [address] [address] [place] AMERICAPotassium [Moles/Vol]4.1 mmol/LNormal3.7-5.1CHolmes [facility] on above:Order Comment: Specimen Type: BLOOD SPECIMENOrdering Facility: [facility] Address:[address] [place] [id number] By: #### 1987-11, , 2776-07, ####[facility] [id number] [place] [address] [place] AMERICAProtein [Mass/Vol]6.2 g/dLLow6.3-8.0[facility] on above:Order Comment: Specimen Type: BLOOD SPECIMENOrdering Facility: [facility] Address:[address] [place], [place] [address]Performed By: #### 1987-11, , 2776-07, 78763-9 ####[facility] [id number] [place] [address] [place] AMERICASodium [Moles/Vol]139 mmol/FWmzldo510-629EjpcastltUniversity Hospitals Health System on above:Order Comment: Specimen Type: BLOOD SPECIMENOrdering Facility: [facility] Address:[address] [place], [place] [address]Performed By: #### 1987-11, , 2776-07, ####[facility] [id number] [place] [address] [place] AMERICAUrea nitrogen [Mass/Vol]10 mg/dL Normal7-21[facility] on above:Order Comment: Specimen Type: BLOOD SPECIMENOrdering Facility: [facility] Address:[address] [place], [place] [address]Performed By: #### 1987-11, , 2776-07, ####[facility] [id number] [place] [id number] [place] OF AMERICAED NOTEon 12-87-4752GV NOTENormalCleveland V[facility]ant [facility]ung[facility] NOTENormalCleveland V[facility] NOTEHNO ID: [id number] Author: GALILEO CONDON RN Service: Emergency Medicine Author Type: Registered Nurse Type: ED Notes Filed: 07/30/2024 15:22 Note Text: Pt has been at [facility], crohn's flare, symptoms for 2 weeks.NormalMetroHealth [facility] PROV NOTEon 65-68-0776MX PROV NOTE NormalWood County HospitalESR Westergren method (Bld) [Velocity]on 62-74-9147CFB (Bld) [Velocity]41 mm/hHigh0-20[facility] Springfieldment on above:Order Comment: Specimen Type: BLOOD SPECIMENOrdering Facility: [facility] Address:[address] [place] [address] Performed By: #### 4537-7 ####[facility] [id number] [place] [address] [place] HISTORY PHYSICALon 36-19-8625YQSNERM PHYSICALNormalCMercy Health [facility]rbana Hospital Magnesium SerPl-mCncon 67-85-7133Srczjupsr [Mass/Vol]1.8 mg/dLNormal1.7-2.3 [facility] on above:Order Comment: Specimen Type: BLOOD SPECIMENOrdering Facility: [facility] Address:[address] [place], [place] [address]Performed By: #### 1988-5, 66781-0, 2777-1, 93121-3 ####[facility] [id number] [place] [address] [place] AMERICAPT panel Coag (PPP)on 07-30-2024 INR Coag (PPP) [Relative time]1.0 {INR}Normal0.9-1.3CMercy Health Urbana Hospital Comment on above:Order Comment: Specimen Type: BLOOD SPECIMENOrdering Facility: [facility] Address:[address] [place], [place] [address]Result Comment: Vitamin K Antagonist (VKA) Therapeutic Range: INR 2 to 3 (Target INR of 2.5)Note: For patients treated with VKA drugs, such as warfarin, the [place] [employer] 2012 Guideline recommends a therapeutic INR range of 2 to 3 (target INR of 2.5). This recommendation includes high-risk patients with antiphospholipid syndrome with previous arterial or venous thromboembolism, current-generation mechanical or bioprosthetic aortic heart valve replacement.Note: Patients with mechanical aortic valve replacement and additional risk factors for thromboembolic events (atrialfibrillation, previous thromboembolism, LV dysfunction, hypercoagulable conditions) or an older gene ration mechanical AVR (i.e., ball in-Cage) or any mechanical MVR should have a INR therapeutic range of 2.5 to 3.5 (target INR of 3).Brie GH, et al. Chest 2012, 141:7S-47SAubrey RA, et al. [facility] 2017, 70: 252-289Performed By: #### 02398-8 ####[facility] [id number] [place] [address] [place] AMERICAPT Coag (PPP) [Time] 11.3 sNormal9.7-13.0[facility] on above:Order Comment: Specimen Type: BLOOD SPECIMENOrdering Facility: [facility] Address:[address] [place], [place] [address]Performed By: #### 95733-7 ####[facility] [facility] [id number] [place] [address] [place] STATES OF AMERICAPhosphate SerPl-mCncon 07-30-2024 Phosphate [Mass/Vol]2.6 mg/dLLow2.7-4.8CHolmes County [facility] on above:Order Comment: Specimen Type: BLOOD SPECIMENOrdering Facility: [facility] Address:[address] [place], [place] [address]Performed By: #### 1988-5, 56703-4, 2777-1, 22409-6 ####[facility] [id number] [address] [place] SEPSIS LACTATE W/ REFLEX (INITIAL)on 93-87-9024Pyrxhsn [Moles/Vol]0.8 mmol/L Normal<=2.0[facility] on above:Order Comment: Specimen Type: BLOOD SPECIMENOrdering Facility: [facility] Address:[address] [place], [place] [address]Performed By: #### SLACTR ####[facility] [id number] [address]ETTYPE + SCREENon 57-92-7728ZYTASrusibHkwwirgsjHolmes County [facility] on above:Order Comment: Specimen Type: BLOOD SPECIMENOrdering Facility: [facility] Address:[address] [place], [place] [address]Performed By: #### TSCR ####CC MAIN BLOOD BANKCLIA [id number] [address] ST[address]ETRh Nom (Bld)Negative NormalUniversity Hospitals Health System on above:Order Comment: Specimen Type: BLOOD SPECIMENOrdering Facility: [facility] Address:[address] [place], [place] [address]Performed By: #### TSCR ####CC MAIN BLOOD BANKCLIA [id number] [address]TYPE AND SCREEN OOFKFFBDUD99/29/2025 23:59NormalCHolmes County [facility] on above:Order Comment: Specimen Type: BLOOD SPECIMENOrdering Facility: [facility] Address:[address] [place], [place] [address]Performed By: #### TSCR ####CC MAIN BLOOD BANKCLIA [id number] [address]Basic Metabolic Panelon 04-12-8211Xpt, Glom Filt Rate- PINFBon [facility] on above: These results are not intended [...] tubular secretion. Interpretation and review of laboratory resultsAbnormalBon [facility] Basic Metabolic Profon 15-53-8363Foxay gap [Moles/Vol]10 mmol/LNormal9-16Bon [facility] on above:Performed By: #### CRP, HCG, LIP, TROPI, CDP, CP #### [facility] [address] [place] [address] Curtain Stitcher: ANGIE Gargalcium [Mass/Vol]8.5 mg/dLLow8.6-10.4[facility] HealthComment on above:Performed By: #### CRP, HCG, LIP, TROPI, CDP, CP #### [place] [address] Curtain Stitcher: Dioni Merlos MDChloride [Moles/Vol]107 mmol/QJdmtvt59-301Kaq [facility] HealthComment on above:Performed By: #### CRP, HCG, LIP, TROPI, CDP, CP #### [place] [address] Curtain Stitcher: Dioni Merlos MDCO2 [Moles/Vol]22 mmol/BFvjgif76-46Pxt SecWomen's and Children's Hospital HealthComment on above:Performed By: #### CRP, HCG, LIP, TROPI, CDP, CP #### [place] [address] Curtain Stitcher: ANGIE Gargreatinine [Mass/Vol]0.6 mg/dLNormal0.6-0.9[facility] HealthComment on above:Performed By: #### CRP, HCG, LIP, TROPI, CDP, CP #### [place] [address] Curtain Stitcher: Dioni Merlos MDGlucose [Mass/Vol]72 mg/rWWtn72-18Jrg SecWomen's and Children's Hospital HealthComment on above:Performed By: #### CRP, HCG, LIP, TROPI, CDP, CP #### [address] [address] Curtain Stitcher: Dioni Merlos MDPotassium [Moles/Vol]4.8 mmol/LNormal3.7-5.3[facility] HealthComment on above:Performed By: #### CRP, HCG, LIP, TROPI, CDP, CP #### [facility] [place] [address] Curtain Stitcher: CASS Gargodium [Moles/Vol]139 mmol/TXybjea402-665UoaBon Secours Richmond Community HospitalComup health system on above:Performed By: #### CRP, HCG, LIP, TROPI, CDP, CP #### [facility] [address] [place] [address] Curtain Stitcher: Dioni Merlos MDUrea nitrogen [Mass/Vol]13 mg/dLNormal6-20[facility] on above:Performed By: #### CRP, HCG, LIP, TROPI, CDP, CP #### [facility] [address] [place] [address] Curtain Stitcher: Dioni Merlos MDGFR/1.73 sq M.predicted among non-blacks MDRD (S/P/Bld) [Vol rate/Area]mL/min/{1.73_m2}Normal>60Ohio Valley HospitalComment on above:Result Comment: These results are not intended for [...] or following therapy that affects renal tubular secretion.Performed By: #### CRP, HCG, LIP, TROPI, CDP, CP #### [facility] [place] [address] Curtain Stitcher: Dioni Merlos MDC-Reactive Proteinon 73-55-1640WCB High sensitivity method [Mass/Vol]6.9 mg/LHigh0.0 - 5.0 mg/LBon [facility] Interpretation and review of laboratory resultsAbnormalBon [facility] Bon [facility] North HospitalCRP [Mass/Vol]6.9 mg/LHigh0.0-5.0[facility] HospitalComment on above:Performed By: #### CRP, HCG, LIP, TROPI, CDP, CP #### [facility] [address] [place] [address] Curtain Stitcher: Isma Garg 01-75-3892Womocctrrpr distribution width (RBC) [Ratio]15.6 %High11.8 - 14.4 %[facility] Community HospitalHematocrit (Bld) [Volume fraction]38.9 %36.3 - 47.1 %[facility] HospitalHemoglobin (Bld) [Mass/Vol]11.9 g/dL11.9 - 15.1 g/dLBon [facility] North HospitalInterpretation and review of laboratory resultsAbnormalSpotsylvania Regional Medical CenterH (RBC) [Entitic mass]27.6 pg25.2 - 33.5 pgBon Genesis HospitalHC (RBC) [Mass/Vol]30.6 g/dL 28.4 - 34.8 g/dLBon Genesis HospitalV (RBC) [Entitic vol]90.3 fL82.6 - 102.9 fLBon Secours Richmond Community HospitalNucleated RBC/100 WBC (Bld) [Ratio]0.0 %0.0 per 100 WBCBon Secours Richmond Community HospitalPlatelet mean volume (Bld) [Entitic vol]10.9 fL 8.1 - 13.5 fLBon Secours Richmond Community HospitalPlatelets (Bld) [#/Vol]292 10*3/uLBon [facility] North HospitalRBC (Bld) [#/Vol]4.31 10*6/uL3.95 - 5.11 m/uLBon Secours Richmond Community HospitalWBC other (Bld) [#/Vol]8.0Bon [facility] CenterErythrocyte distribution width (RBC) [Ratio]15.6 %High11.8-14.4[facility] Valley HospitalComment on above:Performed By: #### CBC, LACTIC #### [facility] [address] [place], [place] [address] Curtain Stitcher: Dioni Merlos MDHematocrit (Bld) [Volume fraction]38.9 %Normal 36.3-47.1MFremont Memorial HospitalComment on above:Performed By: #### CBC, LACTIC #### [address] [address] Curtain Stitcher: Dioni Merlos MDHemoglobin (Bld) [Mass/Vol]11.9 g/dLNormal 11.9-15.1MFremont Memorial HospitalComment on above:Performed By: #### CBC, LACTIC #### [address] [address] Curtain Stitcher: JAN GargCH (RBC) [Entitic mass]27.6 utZqifwc34.2-33.5 [facility] HospitalComment on above:Performed By: #### CBC, LACTIC #### [place] [address] Curtain Stitcher: JAN GargCHC (RBC) [Mass/Vol]30.6 g/iDVsxdsv60.4-34.8 [facility] HospitalComment on above:Performed By: #### CBC, LACTIC #### [address] [address] Curtain Stitcher: JAN GargCV (RBC) [Entitic vol]90.3 iYRafvcm91.6-102.9 [facility] HospitalComment on above:Performed By: #### CBC, LACTIC #### [address] [address] Curtain Stitcher: Dioni Merlos MDNRBC Automated0.0 per 100 WBCNormal0.0Ohio Valley HospitalComment on above:Performed By: #### CBC, LACTIC #### [address] [address] Curtain Stitcher: RACHID Garglatelet mean volume (Bld) [Entitic vol]10.9 fL Normal8.1-13.5Ohio Valley HospitalComment on above:Performed By: #### CBC, LACTIC #### [facility] [place] [address] Curtain Stitcher: Latisha Gargtelets (Bld) [#/Vol]292 10*3/zGFfyuqp191-202 [facility] HospitalComment on above:Performed By: #### CBC, LACTIC #### [facility] [address] [place] [address] Curtain Stitcher: THEODORE GargBC (Bld) [#/Vol]4.31 10*6/uLNormal3.95-5.11 [facility] HospitalComment on above:Performed By: #### CBC, LACTIC #### [facility] [address] [place] [address] Curtain Stitcher: Dioni Merlos MDWBC (Bld) [#/Vol]8.0 10*3/uLNormal3.5-11.3MFremont Memorial HospitalComment on above:Performed By: #### CBC, LACTIC #### [facility] [place] [address] Curtain Stitcher: Dioni Merlos MDGlucose,Whole Bloodon 91-35-5464Lofxaxm [Mass/Vol]72 mg/wURgadmz82-050GkxgeOhio Valley HospitalLactic Acidon 52-10-8176Looste Acid, Whole Blood1.0 mmol/L0.7 - 2.1 mmol/LBon [facility] North HospitalBon SecSelect Medical Specialty Hospital - TrumbullLactic Acid,Whole Bl1.0 mmol/LNormal0.7-2.1MFremont Memorial HospitalComment on above:Performed By: #### CBC, LACTIC #### [facility] [address] [place] [address] Curtain Stitcher: Chris Garggnesiumon 47-90-6087Owunnyeoo [Mass/Vol]2.2 mg/dLNormal1.6-2.6Bon [facility] North HospitalComment on above:Performed By: #### CRP, HCG, LIP, TROPI, CDP, CP #### [facility] [place], [place] [address] Curtain Stitcher: Dioni Merlos MDNo Panel Informationon 83-46-4198Fdi [facility] Glucose Fingerstickon 32-01-3844Ncuyaky [Mass/Vol]72 mg/dL65 - 105 mg/dLBon [facility] North HospitalBon [facility]hesda North HospitalPhosphoruson 07-29-2024 Phosphate [Mass/Vol]3.9 mg/dL2.5 - 4.5 mg/dLBon [facility] North HospitalPhosphorus, Inorg.on 55-35-2798Vvbigmukpa, Inorg.3.9 mg/dLNormal2.5-4.5Ohio Valley HospitalComment on above:Performed By: #### CRP, HCG, LIP, TROPI, CDP, CP #### [facility] [address] [place] [address] [phone] Curtain Stitcher: SIERRA Garg ABDOMEN (KUB) (SINGLE AP VIEW)on 77-56-7944YC ABDOMEN (KUB) (SINGLE AP VIEW)EXAMINATION: ONE SUPINE XRAY VIEW(S) OF THE ABDOMEN 07/29/2024 12:37 pm COMPARISON: 07/21/2024 HISTORY: ORDERING SYSTEM PROVIDED HISTORY: abdominal pain TECHNOLOGIST PROVIDED HISTORY: abdominal pain Reason for Exam: Abdominal Pain FINDINGS: Ileus. No free air. No gross bony abnormality. IMPRESSION: Ileus Interpreted by: Rahul Rincon MD Signed by: Rahul Rincon MD 07/29/24 Final resultNormalMerKindred HospitalXR Abdomen Single viewon 62-39-0685Pppjg MHPN RIS CONSOLIDATEDEXAMINATION: ONE SUPINE XRAY VIEW(S) OF THE ABDOMEN 07/29/2024 12:37 pm COMPARISON: 07/21/2024 HISTORY: ORDERING SYSTEM PROVIDED HISTORY: abdominal pain TECHNOLOGIST PROVIDED HISTORY: abdominal pain Reason for Exam: Abdominal Pain FINDINGS: Ileus. No free air. No gross bony abnormality. [facility] Rahul Valero MD - 07/29/2024 EXAMINATION: ONE SUPINE XRAY VIEW(S) OF THE ABDOMEN 07/29/2024 12:37 pm COMPARISON: 07/21/2024 HISTORY: ORDERING SYSTEM PROVIDED HISTORY: abdominal pain TECHNOLOGIST PROVIDED HISTORY: abdominal pain Reason for Exam: Abdominal Pain FINDINGS: Ileus. No free air. No gross bony abnormality. IMPRESSION: Ileus [facility] Health VenturesRadiology Study observation (narrative)[facility] Health VenturesXR Abdomen Single viewOrdered By: Rahul Rincon on 29-69-9551Ymy [facility] Work Phone: Basic Metabolic Panelon 78-03-3179Zxeqy gap [Moles/Vol]7 mmol/LLow9 - 16 mmol/LBon FreeBrie HealthCalcium [Mass/Vol]9.2 mg/dL8.6 - 10.4 mg/dLBon [facility] Health VenturesChloride [Moles/Vol]105 mmol/L98 - 107 mmol/LBon FreeBrie HealthCO2 [Moles/Vol]27 mmol/L20 - 31 mmol/LBon [facility] VenturesCreatinine [Mass/Vol]0.5 mg/dLLow0.6 - 0.9 mg/dLBon [facility] Health VenturesEst, Glom Filt Rate- PINFBon Bladder Health VenturesComment on above: These results are not intended [...] therapy that affects renal tubular secretion. Glucose [Mass/Vol]90 mg/dL74 - 99 mg/dLBon [facility] Health VenturesInterpretation and review of laboratory resultsAbnormalBon [facility] Health VenturesPotassium [Moles/Vol]5.0 mmol/L3.7 - 5.3 mmol/LBon [facility] Health VenturesSodium [Moles/Vol] 139 mmol/L136 - 145 mmol/LBon [facility] North HospitalUrea nitrogen [Mass/Vol]10 mg/dL6 - 20 mg/dLBon [facility] North HospitalBasic Metabolic Profon 57-17-3753Fonkf gap [Moles/Vol]7 mmol/LLow9-16Ohio Valley HospitalComment on above: Performed By: #### CRP, HCG, LIP, TROPI, CDP, CP #### [facility] [address] [place] [address] Curtain Stitcher: ANGIE Gargalcium [Mass/Vol]9.2 mg/dLNormal8.6-10.4Ohio Valley HospitalComment on above:Performed By: #### CRP, HCG, LIP, TROPI, CDP, CP #### [facility] [address] [place] [address] Curtain Stitcher: ANGIE Garghloride [Moles/Vol]105 mmol/YPcjpdo37-265OepagOhio Valley HospitalComment on above:Performed By: #### CRP, HCG, LIP, TROPI, CDP, CP #### [facility] [address] [place] [address] Curtain Stitcher: Dioni Merlos MDCO2 [Moles/Vol]27 mmol/EAgfjsx45-54BnpprOhio Valley HospitalComment on above:Performed By: #### CRP, HCG, LIP, TROPI, CDP, CP #### [facility] [address] [place] [address] Curtain Stitcher: ANGIE Gargreatinine [Mass/Vol]0.5 mg/dLLow0.6-0.9Ohio Valley HospitalComment on above:Performed By: #### CRP, HCG, LIP, TROPI, CDP, CP #### [facility] [address] [place] [address] Curtain Stitcher: Dioni Merlos MDGFR/1.73 sq M.predicted among non-blacks MDRD (S/P/Bld) [Vol rate/Area]mL/min/{1.73_m2}Normal>60Ohio Valley HospitalComment on above:Result Comment: These results are not intended for [...] or following therapy that affects renal tubular secretion.Performed By: #### CRP, HCG, LIP, TROPI, CDP, CP #### [facility] [address] [place] [address] Curtain Stitcher: Dioni Merlos MDGlucose [Mass/Vol]90 mg/bOUbdjiw84-18LxlegFremont Memorial HospitalComment on above:Performed By: #### CRP, HCG, LIP, TROPI, CDP, CP #### [facility] [address] [place] [address] Curtain Stitcher: RACHID Gargotassium [Moles/Vol]5.0 mmol/LNormal3.7-5.3 [facility] HospitalComment on above:Performed By: #### CRP, HCG, LIP, TROPI, CDP, CP #### [facility] [address] [place] [address] Curtain Stitcher: CASS Gargodium [Moles/Vol]139 mmol/DHotqcv054-881NngbwOhio Valley HospitalComment on above:Performed By: #### CRP, HCG, LIP, TROPI, CDP, CP #### [facility] [address] [place] [address] Curtain Stitcher: Dioni Merlos MDUrea nitrogen [Mass/Vol]10 mg/dLNormal6-20[facility] HospitalComment on above:Performed By: #### CRP, HCG, LIP, TROPI, CDP, CP #### [facility] [address] [place], [place] [address]o, [place] 3[address] Curtain Stitcher: Isma Garg 44-08-1408Jrkowxvbysf distribution width (RBC) [Ratio]16.0 %High11.8 - 14.4 %[facility] HospitalHematocrit (Bld) [Volume fraction]35.8 %Low36.3 - 47.1 %[facility] HospitalHemoglobin (Bld) [Mass/Vol]11.0 g/dLLow11.9 - 15.1 g/dLBon [facility] North HospitalInterpretation and review of laboratory resultsAbnormalSpotsylvania Regional Medical CenterH (RBC) [Entitic mass]27.6 pg25.2 - 33.5 pgSpotsylvania Regional Medical CenterHC (RBC) [Mass/Vol]30.7 g/dL 28.4 - 34.8 g/dLBon Genesis HospitalV (RBC) [Entitic vol]89.9 fL82.6 - 102.9 fLBon Secours Richmond Community HospitalNucleated RBC/100 WBC (Bld) [Ratio]0.0 %0.0 per 100 WBCBon Secours Richmond Community HospitalPlatelet mean volume (Bld) [Entitic vol]11.4 fL 8.1 - 13.5 fLBon Secours Richmond Community HospitalPlatelets (Bld) [#/Vol]222 10*3/uLBon [facility] North HospitalRBC (Bld) [#/Vol]3.98 10*6/uL3.95 - 5.11 m/uLBon Secours Richmond Community HospitalWBC other (Bld) [#/Vol]5.0Bon [facility] CenterErythrocyte distribution width (RBC) [Ratio]16.0 %High11.8-14.4[facility] Springs Medical CenterComment on above:Performed By: #### CRP, HCG, LIP, TROPI, CDP, CP #### [facility] [place], [place] [address] Curtain Stitcher: Dioni Merlos MDHematocrit (Bld) [Volume fraction]35.8 %Low 36.3-47.1[facility] Springs Medical CenterComment on above:Performed By: #### CRP, HCG, LIP, TROPI, CDP, CP #### [address] [address] Curtain Stitcher: Dioni Merlos MDHemoglobin (Bld) [Mass/Vol]11.0 g/dLLow11.9-15.1 [facility] HospitalComment on above:Performed By: #### CRP, HCG, LIP, TROPI, CDP, CP #### [address] [address] Curtain Stitcher: JAN GargCH (RBC) [Entitic mass]27.6 gqJuwofi04.2-33.5 [facility] HospitalComment on above:Performed By: #### CRP, HCG, LIP, TROPI, CDP, CP #### [address] [address] Curtain Stitcher: SHARYN GargC (RBC) [Mass/Vol]30.7 g/yDHazwvf24.4-34.8 [facility] HospitalComment on above:Performed By: #### CRP, HCG, LIP, TROPI, CDP, CP #### [address] [address] Curtain Stitcher: JAN GargCV (RBC) [Entitic vol]89.9 uVAnebly69.6-102.9 [facility] HospitalComment on above:Performed By: #### CRP, HCG, LIP, TROPI, CDP, CP #### [address] [address] Curtain Stitcher: Dioni Merlos MDNRBC Automated0.0 per 100 WBCNormal0.0[facility] HospitalComment on above:Performed By: #### CRP, HCG, LIP, TROPI, CDP, CP #### [address] [address] Curtain Stitcher: Natalia Garg mean volume (Bld) [Entitic vol]11.4 fL Normal8.1-13.5Ohio Valley HospitalComment on above:Performed By: #### CRP, HCG, LIP, TROPI, CDP, CP #### [facility] [address] [place] [address] Curtain Stitcher: Latisha Gargtetaina (Bld) [#/Vol]222 10*3/mSKbppel542-766 [facility] HospitalComment on above:Performed By: #### CRP, HCG, LIP, TROPI, CDP, CP #### [facility] [address] [place] [address] Curtain Stitcher: Dioni Merlos SSM REHABBC (Bld) [#/Vol]3.98 10*6/uLNormal3.95-5.11 [facility] HospitalComment on above:Performed By: #### CRP, HCG, LIP, TROPI, CDP, CP #### [address] [address] Curtain Stitcher: GIANNA Garg (Bld) [#/Vol]5.0 10*3/uLNormal3.5-11.3MFremont Memorial HospitalComment on above:Performed By: #### CRP, HCG, LIP, TROPI, CDP, CP #### [facility] [address] [place] [address] Curtain Stitcher: Dioni Merlos MDMagnesiumon 71-61-2634Ivcwfzowo [Mass/Vol]2.3 mg/dL1.6 - 2.6 mg/dLBon Bethesda North HospitalMagnesium [Mass/Vol]2.3 mg/dLNormal 1.6-2.6MFremont Memorial HospitalComment on above:Performed By: #### CRP, HCG, LIP, TROPI, CDP, CP #### [facility] [address] [place] [phone] Curtain Stitcher: Dioni Merlos MDNo Panel Informationon 76-38-3856Oqq SecMyAGENT HealthPhosphoruson 89-30-5347Vkdjhbrti [Mass/Vol]4.1 mg/dL2.5 - 4.5 mg/dL Bon Secs[facility] Extra Life HealthPhosphorus, Inorg.on 91-49-0207Eiqmgkbcli, Inorg.4.1 mg/dLNormal2.5-4.5[facility] Springs Medical CenterComment on above:Performed By: #### CRP, HCG, LIP, TROPI, CDP, CP #### [facility] [address] [place], [place] [address] Curtain Stitcher: Dioni Merlos MDBasic Metabolic Panelon 18-40-5311Ykquc gap [Moles/Vol]9 mmol/L9 - 16 mmol/LBon Secours Extra Lifey HealthCalcium [Mass/Vol]8.8 mg/dL8.6 - 10.4 mg/dLBon SecMyAGENT HealthChloride [Moles/Vol]102 mmol/L98 - 107 mmol/LBon Secours Extra Lifey HealthCO2 [Moles/Vol]26 mmol/L20 - 31 mmol/LBon Secours Extra Lifey HealthCreatinine [Mass/Vol]0.5 mg/dLLow0.6 - 0.9 mg/dLBon Secours Extra Lifey HealthEst, Glom Filt Rate- PINFBon SecMyAGENT HealthComment on above: These results are not intended [...] therapy that affects renal tubular secretion. Glucose [Mass/Vol]91 mg/dL74 - 99 mg/dLBon BuyRentKenya.comy HealthInterpretation and review of laboratory resultsAbnormalBon Secours Extra Lifey HealthPotassium [Moles/Vol]4.3 mmol/L3.7 - 5.3 mmol/LBon Secours Extra Lifey HealthSodium [Moles/Vol] 137 mmol/L136 - 145 mmol/LBon [facility] HealthUrea nitrogen [Mass/Vol]8 mg/dL6 - 20 mg/dLBon [facility] North HospitalBasic Metabolic Profon 87-41-1689Oqcxv gap [Moles/Vol]9 mmol/LNormal9-16[facility] HospitalComment on above:Performed By: #### CBC, LACTIC #### [facility] [address] [place] [address] Curtain Stitcher: ANGIE Gargalcium [Mass/Vol]8.8 mg/dLNormal8.6-10.4[facility] HospitalComment on above:Performed By: #### CBC, LACTIC #### [facility] [address] [place] [address] Curtain Stitcher: ANGIE Garghloride [Moles/Vol]102 mmol/EWgyjrw84-902QofftOhio Valley HospitalComment on above:Performed By: #### CBC, LACTIC #### [facility] [address] [place] [address] Curtain Stitcher: Dioni Merlos MDCO2 [Moles/Vol]26 mmol/EClpdpp63-86FdoyaOhio Valley HospitalComment on above:Performed By: #### CBC, LACTIC #### [facility] [address] [place] [address] Curtain Stitcher: ANGIE Gargreatinine [Mass/Vol]0.5 mg/dLLow0.6-0.9[facility] HospitalComment on above:Performed By: #### CBC, LACTIC #### [facility] [address] [place] [address] Curtain Stitcher: Dioni Merlos MDGFR/1.73 sq M.predicted among non-blacks MDRD (S/P/Bld) [Vol rate/Area]mL/min/{1.73_m2}Normal>60MerKindred HospitalComment on above:Result Comment: These results are not intended for [...] or following therapy that affects renal tubular secretion.Performed By: #### CBC, LACTIC #### [facility] [address] [place] [address] Curtain Stitcher: Dioni Merlos MDGlucose [Mass/Vol]91 mg/oHEwyken12-61AmijoFremont Memorial HospitalComment on above:Performed By: #### CBC, LACTIC #### [place] [address] Curtain Stitcher: Dioni Merlos MDPotassium [Moles/Vol]4.3 mmol/LNormal3.7-5.3 [facility] HospitalComment on above:Performed By: #### CBC, LACTIC #### [facility] [address] [place] [address] Curtain Stitcher: CASS Gargodium [Moles/Vol]137 mmol/WPowpiw095-583RnufcOhio Valley HospitalComment on above:Performed By: #### CBC, LACTIC #### [address] [address] Curtain Stitcher: Dioni Merlos MDUrea nitrogen [Mass/Vol]8 mg/dLNormal6-20[facility] HospitalComment on above:Performed By: #### CBC, LACTIC #### [place] [address] Curtain Stitcher: Chris Garggnesiumon 72-27-1774Jbuhfhcbo [Mass/Vol]2.5 mg/dL1.6 - 2.6 mg/dLBon [facility] North HospitalMagnesium [Mass/Vol]2.5 mg/dLNormal 1.6-2.6[facility] Springs Medical CenterComment on above:Performed By: #### CBC, LACTIC #### [facility] [address] [place], [place] [id number] Curtain Stitcher: Dioni Merlos MDNo Panel Informationon 85-61-3884Yoz [facility] Medical CenterMyAGENT St[facility] CampusPhosphoruson 00-45-9233Vkmrmauyp [Mass/Vol]4.4 mg/dL2.5 - 4.5 mg/dL Bon [facility] North HospitalPhosphorus, Inorg.on 85-53-3130Buitupgzgk, Inorg.4.4 mg/dLNormal2.5-4.5[facility] Springs Medical CenterComment on above:Performed By: #### CBC, LACTIC #### [facility] [address] [place] [address] Curtain Stitcher: Lupillo Gargc Metabolic Panelon 19-31-0092Ncyns gap [Moles/Vol]7 mmol/LLow9 - 16 mmol/LBon [facility] Medical CenterMyAGENT St[facility] CampusCalcium [Mass/Vol]8.3 mg/dLLow8.6 - 10.4 mg/dLBon [facility] Health Medical CenterLight Sciences OncologyChloride [Moles/Vol]106 mmol/L 98 - 107 mmol/LBon [facility] Medical CenterMyAGENT St[facility]ont[facility] CampusCO2 [Moles/Vol]27 mmol/L20 - 31 mmol/LBon [facility] Health Medical CenterLight Sciences OncologyCreatinine [Mass/Vol]0.4 mg/dLLow0.6 - 0.9 mg/dLBon [facility] Medical CenterMyAGENT St[facility] Ir[facility]on CampusEst, Glom Filt Rate- PINFBon George L. Mee Memorial HospitalCoSchedule St. [facility] CampusComment on above: These results are not intended [...] therapy that affects renal tubular secretion. Glucose [Mass/Vol]109 mg/uRJxkk00 - 99 mg/dLBon [facility] Health Medical CenterLight Sciences Oncology Interpretation and review of laboratory resultsAbnormalBon [facility] Potassium [Moles/Vol]3.8 mmol/L3.7 - 5.3 mmol/LBon [facility] North HospitalSodium [Moles/Vol]140 mmol/L136 - 145 mmol/LBon [facility] North HospitalUrea nitrogen [Mass/Vol]5 mg/dLLow6 - 20 mg/dLBon [facility] North HospitalBasic Metabolic Profon 72-23-5982Wnbri gap [Moles/Vol]7 mmol/LLow9-16[facility] Comment on above:Performed By: #### CRP #### [facility] [address] [place] [address] Curtain Stitcher: ANGIE Gargalcium [Mass/Vol]8.3 mg/dLLow8.6-10.4[facility] HospitalComment on above:Performed By: #### CRP #### [facility] [address] [place] [address] Curt[employer] St[employer]cher: ANGIE Garghloride [Moles/Vol]106 mmol/ZDedvna65-822MiqvjOhio Valley HospitalComment on above:Performed By: #### CRP #### [facility] [address] [place] [id number] [employer]: ANGIE GargO2 [Moles/Vol]27 mmol/FNquzle38-73ArgahOhio Valley HospitalComment on above:Performed By: #### CRP #### [facility] [address] [place], [place] [address] Curtain Stitcher: ANGIE Gargreatinine [Mass/Vol]0.4 mg/dLLow0.6-0.9Ohio Valley HospitalComment on above:Performed By: #### CRP #### [facility] [address] [place] [address] Curtain Stitcher: Dioni Merlos MDGFR/1.73 sq M.predicted among non-blacks MDRD (S/P/Bld) [Vol rate/Area]mL/min/{1.73_m2}Normal>60Ohio Valley HospitalComment on above:Result Comment: These results are not intended for [...] or following therapy that affects renal tubular secretion.Performed By: #### CRP #### [facility] [address] [place] [address] Curtain Stitcher: Dioni Merlos MDGlucose [Mass/Vol]109 mg/gEGopx52-19TmvzfFremont Memorial HospitalComment on above:Performed By: #### CRP #### [address] [address] Curtain Stitcher: RACHID Gargotassium [Moles/Vol]3.8 mmol/LNormal3.7-5.3 [facility] Valley HospitalComment on above:Performed By: #### CRP #### [address] [address] Curtain Stitcher: CASS Gargodium [Moles/Vol]140 mmol/EKynukx789-649EspxxOhio Valley HospitalComment on above:Performed By: #### CRP #### [address] [address] Curtain Stitcher: Dioni Merlos MDUrea nitrogen [Mass/Vol]5 mg/dLLow6-20Ohio Valley HospitalComment on above:Performed By: #### CRP #### [address] [address] Curtain Stitcher: Dioni Merlos MDCalprotectin Stoolon 10-91-1218Raisinlivkwc, Iohon3030 ug/gHighNINF - 49 ug/gBon [facility]da North HospitalComment on above:(NOTE) REFERENCE INTERVAL: Calprotectin, Fecal by Immunoassay Less than 50 ug/g........Normal 50-120 ug/g..............Borderline elevated, test should be re-evaluated in 4-6 weeks. 121 ug/g or greater......Elevated Performed By: [facility] [address] [place] [address] Disk Recordist: Hugo Ramsey MD, PhD CLIA Number: [id number] Interpretation and review of laboratory resultsAbnormalBon [facility]uel County Memorial HospitalCalprotectin, Fecalon 62-80-9430Pjhomeprzrst, Ysuuc8792 ug/gHigh<=49Mer[facility] Springs Medical CenterComment on above:Result Comment: (NOTE) REFERENCE INTERVAL: Calprotectin, Fecal by Immunoassay Less than 50 ug/g........Normal 50-120 ug/g..............Borderline elevated, test should be re-evaluated in 4-6 weeks. 121 ug/g or greater......Elevated Performed By: [employer] [address] [place] [address] Disk Recordist: Hugo Ramsey MD, PhD CLIA Number: [id number] By: #### CRP #### [facility] [address] [place], [place] [id number] Curtain Stitcher: Chris Garggnesiumon 97-66-8890Xbnixaljr [Mass/Vol]2.1 mg/dL1.6 - 2.6 mg/dLBon [facility] North HospitalMagnesium [Mass/Vol]2.1 mg/dLNormal 1.6-2.6Mer[facility] Rancho Springs Medical CenterComment on above:Performed By: #### CBC, LACTIC #### [facility] [address] [place], [place] [id number] Curtain Stitcher: Dioni Merlos MDNo Panel Informationon 18-26-8088Lxo [facility] North HospitalPhosphoruson 09-28-1638Aizrwkulp [Mass/Vol]3.4 mg/dL2.5 - 4.5 mg/dL [facility] CampusPhosphorus, Inorg.on 51-12-9065Rmavsnfhvb, Inorg.3.4 mg/dLNormal2.5-4.5[facility] Springs Medical CenterComment on above:Performed By: #### CBC, LACTIC #### [facility] [address] [id number] Curtain Stitcher: Shlomo Garg Metabolic Panelon 09-12-4985Wehai gap [Moles/Vol]8 mmol/LLow9 - 16 mmol/LBon [facility] Medical CenterLight Sciences OncologyCalcium [Mass/Vol]8.6 mg/dL8.6 - 10.4 mg/dLBon [facility] CenterLight Sciences OncologyChloride [Moles/Vol]107 mmol/L98 - 107 mmol/LBon [facility] Medical CenterLight Sciences OncologyCO2 [Moles/Vol]25 mmol/L20 - 31 mmol/LBon [facility] CenterLight Sciences OncologyCreatinine [Mass/Vol]0.5 mg/dLLow0.6 - 0.9 mg/dLBon [facility] Medical CenterLight Sciences OncologyEst, Glom Filt Rate- PINFBon [facility] Medical CenterLight Sciences OncologyComment on above: These results are not intended [...] therapy that affects renal tubular secretion. Glucose [Mass/Vol]108 mg/fZLgmw20 - 99 mg/dLBon [facility] Interpretation and review of laboratory resultsAbnormalBon [facility] Medical CenterLight Sciences Oncology Potassium [Moles/Vol]3.6 mmol/LLow3.7 - 5.3 mmol/LBon [facility] Comment on above:Specimen hemolysis has exceeded the interference as defined by Luis. Value may be falsely increased. Suggest recollection if clinically indicated. Sodium [Moles/Vol]140 mmol/L136 - 145 mmol/LBon [facility] VenturesUrea nitrogen [Mass/Vol]mg/dLLow6 - 20 mg/dLBon [facility] CenterLight Sciences OncologyBapaintsville [facility] Metabolic Profon 47-10-5839Rohhb gap [Moles/Vol]8 mmol/LLow9-16Ohio Valley HospitalComment on above:Performed By: #### CBC, LACTIC #### [facility] [address] [place] [address] Curtain Stitcher: Dioni Merlos MDCalcium [Mass/Vol]8.6 mg/dLNormal8.6-10.4Ohio Valley HospitalComment on above:Performed By: #### CBC, LACTIC #### [facility] [address] [place] [address] Curtain Stitcher: Dioni Merlos MDChloride [Moles/Vol]107 mmol/ZJfwkdx19-074BfxbkOhio Valley HospitalComment on above:Performed By: #### CBC, LACTIC #### [facility] [address] [place] [address] Curtain Stitcher: Dioni Merlos MDCO2 [Moles/Vol]25 mmol/JPqcdmd37-30DrvvpOhio Valley HospitalComment on above:Performed By: #### CBC, LACTIC #### [facility] [address] [place] [address] Curtain Stitcher: ANGIE Gargreatinine [Mass/Vol]0.5 mg/dLLow0.6-0.9Ohio Valley HospitalComment on above:Performed By: #### CBC, LACTIC #### [facility] [address] [place] [address] Curtain Stitcher: Dioni Merlos MDGFR/1.73 sq M.predicted among non-blacks MDRD (S/P/Bld) [Vol rate/Area]mL/min/{1.73_m2}Normal>60MerKindred HospitalComment on above:Result Comment: These results are not intended for [...] or following therapy that affects renal tubular secretion.Performed By: #### CBC, LACTIC #### [facility] [address] [place] [address] Curtain Stitcher: Dioni Merlos MDGlucose [Mass/Vol]108 mg/wLQmym40-78TbedvFremont Memorial HospitalComment on above:Performed By: #### CBC, LACTIC #### [facility] [address] [place] [address] Curtain Stitcher: RACHID Gargotassium [Moles/Vol]3.6 mmol/LLow3.7-5.3MFremont Memorial HospitalComment on above:Result Comment: Specimen hemolysis has exceeded the interference as defined by Luis. Value may be falsely increased. Suggest recollection if clinically indicated.Performed By: #### CBC, LACTIC #### [facility] [address] [place] [address] Curtain Stitcher: CASS Gargodium [Moles/Vol]140 mmol/KIyoexd992-475AklvzOhio Valley HospitalComment on above:Performed By: #### CBC, LACTIC #### [facility] [address] [place] [address] Curtain Stitcher: Dioni Merlos MDUrea nitrogen [Mass/Vol]mg/dLLow6-20Ohio Valley HospitalComment on above:Performed By: #### CBC, LACTIC #### [facility] [address] [place] [address] Curtain Stitcher: Isma Garg 75-47-2869Hgcttzubndc distribution width (RBC) [Ratio]15.9 %High11.8 - 14.4 %Bon SecRedbiotec HealthHematocrit (Bld) [Volume fraction]32.6 %Low36.3 - 47.1 %[facility] HealthHemoglobin (Bld) [Mass/Vol]10.4 g/dLLow11.9 - 15.1 g/dLBon [facility] North HospitalInterpretation and review of laboratory resultsAbnormalPage Memorial Hospital (RBC) [Entitic mass]27.6 pg25.2 - 33.5 pgSpotsylvania Regional Medical CenterHC (RBC) [Mass/Vol]31.9 g/dL 28.4 - 34.8 g/dLBon Genesis HospitalV (RBC) [Entitic vol]86.5 fL82.6 - 102.9 fLBon Secours Richmond Community HospitalNucleated RBC/100 WBC (Bld) [Ratio]0.0 %0.0 per 100 WBCBon Secours Richmond Community HospitalPlatelet mean volume (Bld) [Entitic vol]9.7 fL8.1 - 13.5 fLBon Secours Richmond Community HospitalPlatelets (Bld) [#/Vol]219 10*3/uLBon Secours Richmond Community HospitalRBC (Bld) [#/Vol]3.77 10*6/uLLow3.95 - 5.11 m/Bon [facility] Community HospitalWBC other (Bld) [#/Vol]4.9Bon [facility] Erythrocyte distribution width (RBC) [Ratio]15.9 %High11.8-14.4Ohio Valley HospitalComment on above:Performed By: #### CRP, HCG, LIP, TROPI, CDP, CP #### [facility] [address] [place], [place] [address] Curtain Stitcher: Dioni Merlos MDHematocrit (Bld) [Volume fraction]32.6 %Low 36.3-47.1MFremont Memorial HospitalComment on above:Performed By: #### CRP, HCG, LIP, TROPI, CDP, CP #### [facility] [address] [place], [place] [address] Curtain Stitcher: Dioni Merlos MDHemoglobin (Bld) [Mass/Vol]10.4 g/dLLow11.9-15.1 [facility] Valley HospitalComment on above:Performed By: #### CRP, HCG, LIP, TROPI, CDP, CP #### [facility] [address] [place] [address] Curtain Stitcher: JAN GargCH (RBC) [Entitic mass]27.6 gjZxczzz86.2-33.5 [facility] HospitalComment on above:Performed By: #### CRP, HCG, LIP, TROPI, CDP, CP #### [facility] [address] [place] [address] Curtain Stitcher: SHARYN GargC (RBC) [Mass/Vol]31.9 g/pWEruukm80.4-34.8 [facility] HospitalComment on above:Performed By: #### CRP, HCG, LIP, TROPI, CDP, CP #### [facility] [address] [place] [address] Curtain Stitcher: XOCHITL Garg (RBC) [Entitic vol]86.5 mGXkxipl15.6-102.9 [facility] HospitalComment on above:Performed By: #### CRP, HCG, LIP, TROPI, CDP, CP #### [facility] [address] [place] [address] Curtain Stitcher: GAYATRI Garg Automated0.0 per 100 WBCNormal0.0Ohio Valley HospitalComment on above:Performed By: #### CRP, HCG, LIP, TROPI, CDP, CP #### [facility] [address] [place] [address] Curtain Stitcher: Natalia Garg mean volume (Bld) [Entitic vol]9.7 fL Normal8.1-13.5Ohio Valley HospitalComment on above:Performed By: #### CRP, HCG, LIP, TROPI, CDP, CP #### [facility] [address] [place] [address] Curtain Stitcher: Lionel Garg (Bld) [#/Vol]219 10*3/jPDpfcvr261-498 [facility] HospitalComment on above:Performed By: #### CRP, HCG, LIP, TROPI, CDP, CP #### [facility] [place] [address] Curtain Stitcher: THEODORE Garg ([facility]) [#/Vol]3.77 10*6/uLLow3.95-5.11Ohio Valley HospitalComment on above:Performed By: #### CRP, HCG, LIP, TROPI, CDP, CP #### [facility] [address] [place] [address] Curtain Stitcher: HONG Garg ([facility]) [#/Vol]4.9 10*3/uLNormal3.5-11.3MFremont Memorial HospitalComment on above:Performed By: #### CRP, HCG, LIP, TROPI, CDP, CP #### [facility] [address] [place] [address] Curtain Stitcher: Dioni Merlos MDGlucose,Whole Bloodon 87-87-2576Qqyapnt [Mass/Vol]107 mg/nMXsui30-731WruikOhio Valley HospitalMagnesiumon 55-25-4858Obfcdgatt [Mass/Vol]1.9 mg/dL1.6 - 2.6 mg/dLBon [facility] Magnesium [Mass/Vol]1.9 mg/dLNormal1.6-2.6MFremont Memorial Hospital Comment on above:Performed By: #### CBC, LACTIC #### [facility] [address] [place] [address] Curtain Stitcher: Dioni Merlos MDNo Panel Informationon 77-71-6343Mqx [facility] Glucose Fingerstickon 41-28-3264Wdvlhww [Mass/Vol]107 mg/dLHigh 65 - 105 mg/dLBon [facility] HospitalInterpretation and review of laboratory resultsAbnormalBon [facility] SecWashington Rural Health CollaborativeCoSchedule St[facility] CampusPhosphoruson 02-88-6657Hrhzxdvqf [Mass/Vol]3.4 mg/dL2.5 - 4.5 mg/dLBon [facility]fire Phosphorus, Inorg.on 02-11-8654Hnjtlhndpa, Inorg.3.4 mg/dLNormal2.5-4.5[facility] Medical CenterComment on above:Performed By: #### CBC, LACTIC #### [facility] [address] [place] [address] Curtain Stitcher: Dioni Merlos MDThe [facility] Of [facility] Metabolic Panelon 63-15-3767Gprqi gap [Moles/Vol]12 mmol/L9 - 16 mmol/LBon [facility] HealthCalcium [Mass/Vol]8.4 mg/dLLow8.6 - 10.4 mg/dLBon [facility] HealthChloride [Moles/Vol]107 mmol/L98 - 107 mmol/LBon [facility] HealthCO2 [Moles/Vol]18 mmol/LLow20 - 31 mmol/L [facility] Data3SixtyCreatinine [Mass/Vol]0.4 mg/dLLow0.6 - 0.9 mg/dLBon [facility] Data3SixtyEst, Glom Filt Rate- PINFBon George L. Mee Memorial HospitalCoSchedule St[facility] CampusComment on above: These results are not intended [...] therapy that affects renal tubular secretion. Glucose [Mass/Vol]86 mg/dL74 - 99 mg/dLBon [facility] Data3SixtyPotassium [Moles/Vol]3.8 mmol/L3.7 - 5.3 mmol/LBon [facility] Porch St[facility] CampusComment on above: Specimen hemolysis has exceeded the interference as defined by Luis. Value may be falsely increased. Suggest recollection if clinically indicated. Sodium [Moles/Vol]137 mmol/L136 - 145 mmol/LBon [facility] Centerours [facility] HealthUrea nitrogen [Mass/Vol]mg/dLLow6 - 20 mg/dLBon [facility] Metabolic Profon 87-72-3173Wbnkw gap [Moles/Vol]12 mmol/LNormal9-16[facility] HospitalComment on above:Performed By: #### CRP, HCG, LIP, TROPI, CDP, CP #### [address] [address] Curtain Stitcher: ANGIE Gargalcium [Mass/Vol]8.4 mg/dLLow8.6-10.4Ohio Valley HospitalComment on above:Performed By: #### CRP, HCG, LIP, TROPI, CDP, CP #### [facility] [address] [place] [address] Curtain Stitcher: ANGIE Garghloride [Moles/Vol]107 mmol/VOgpwzx34-204RojurOhio Valley HospitalComment on above:Performed By: #### CRP, HCG, LIP, TROPI, CDP, CP #### [facility] [address] [place] [address] Curtain Stitcher: Dioni Merlos MDCO2 [Moles/Vol]18 mmol/RPrk53-98NaixeOhio Valley HospitalComment on above:Performed By: #### CRP, HCG, LIP, TROPI, CDP, CP #### [facility] [address] [place] [address] Curtain Stitcher: NAGIE Gargreatinine [Mass/Vol]0.4 mg/dLLow0.6-0.9Ohio Valley HospitalComment on above:Performed By: #### CRP, HCG, LIP, TROPI, CDP, CP #### [facility] [address] [place] [address] Curtain Stitcher: Dioni Merlos MDGFR/1.73 sq M.predicted among non-blacks MDRD (S/P/Bld) [Vol rate/Area]mL/min/{1.73_m2}Normal>60Ohio Valley HospitalComment on above:Result Comment: These results are not intended for [...] or following therapy that affects renal tubular secretion.Performed By: #### CRP, HCG, LIP, TROPI, CDP, CP #### [facility] [address] [place] [address] Curtain Stitcher: Dioni Merlos MDGlucose [Mass/Vol]86 mg/kGPpsqar56-00SalbeFremont Memorial HospitalComment on above:Performed By: #### CRP, HCG, LIP, TROPI, CDP, CP #### [place] [address] Curtain Stitcher: RACHID Gargotassium [Moles/Vol]3.8 mmol/LNormal3.7-5.3 [facility] HospitalComment on above:Result Comment: Specimen hemolysis has exceeded the interference as defined by Luis. Value may be falsely increased. Suggest recollection if clinically indicated.Performed By: #### CRP, HCG, LIP, TROPI, CDP, CP #### [place] [address] Curtain Stitcher: CASS Gargodium [Moles/Vol]137 mmol/OGwwfst302-119MvzmaOhio Valley HospitalComment on above:Performed By: #### CRP, HCG, LIP, TROPI, CDP, CP #### [facility] [address] [place] [address] Curtain Stitcher: Dioni Merlso MDUrea nitrogen [Mass/Vol]mg/dLLow6-20Ohio Valley HospitalComment on above:Performed By: #### CRP, HCG, LIP, TROPI, CDP, CP #### [facility] [address] [place] [address] Curtain Stitcher: Isma Garg 70-04-4268Sqgcoassrlc distribution width (RBC) [Ratio]15.7 %High11.8 - 14.4 %[facility] HospitalHematocrit (Bld) [Volume fraction]38.1 %36.3 - 47.1 %[facility] HospitalHemoglobin (Bld) [Mass/Vol]11.6 g/dLLow11.9 - 15.1 g/dLBon [facility] HospitalInterpretation and review of laboratory resultsAbnormalPage Memorial Hospital (RBC) [Entitic mass]28.0 pg25.2 - 33.5 pgSpotsylvania Regional Medical CenterHC (RBC) [Mass/Vol]30.4 g/dL 28.4 - 34.8 g/dLBon Genesis HospitalV (RBC) [Entitic vol]91.8 fL82.6 - 102.9 fLBon Secours Richmond Community HospitalNucleated RBC/100 WBC (Bld) [Ratio]0.0 %0.0 per 100 WBCBon Secours Richmond Community HospitalPlatelet mean volume (Bld) [Entitic vol]9.9 fL8.1 - 13.5 fLBon Secours Richmond Community HospitalPlatelets (Bld) [#/Vol]177 10*3/uLBon Secours Richmond Community HospitalRBC (Bld) [#/Vol]4.15 10*6/uL3.95 - 5.11 m/uLBon Secours Richmond Community HospitalWBC other (Bld) [#/Vol]4.9Bon [facility] Erythrocyte distribution width (RBC) [Ratio]15.7 %High11.8-14.4Ohio Valley HospitalComment on above:Performed By: #### CBC, LACTIC #### [facility] [address] [place] [address] Curtain Stitcher: Dioni Merlos MDHematocrit (Bld) [Volume fraction]38.1 %Normal 36.3-47.1Mer[facility] Springs Medical CenterComment on above:Performed By: #### CBC, LACTIC #### [facility] [address] [place] [address] Curtain Stitcher: Dioni Merlos MDHemoglobin (Bld) [Mass/Vol]11.6 g/dLLow11.9-15.1 [facility] HospitalComment on above:Performed By: #### CBC, LACTIC #### [place] [address] Curtain Stitcher: JAN GargCH (RBC) [Entitic mass]28.0 usCulnlr04.2-33.5 [facility] HospitalComment on above:Performed By: #### CBC, LACTIC #### [address] [address] Curtain Stitcher: JAN GargCHC (RBC) [Mass/Vol]30.4 g/mUYyenup14.4-34.8 [facility] HospitalComment on above:Performed By: #### CBC, LACTIC #### [place] [address] Curtain Stitcher: JAN GargCV (RBC) [Entitic vol]91.8 pLHghzof46.6-102.9 [facility] HospitalComment on above:Performed By: #### CBC, LACTIC #### [place] [address] Curtain Stitcher: Dioni Merlos MDNRBC Automated0.0 per 100 WBCNormal0.0Ohio Valley HospitalComment on above:Performed By: #### CBC, LACTIC #### [facility] [address] [place] [address] Curtain Stitcher: RACHID Garglatelet mean volume (Bld) [Entitic vol]9.9 fL Normal8.1-13.5Ohio Valley HospitalComment on above:Performed By: #### CBC, LACTIC #### [facility] [address] [place] [address] Curtain Stitcher: Lionel Garg (d) [#/Vol]177 10*3/jHPgjlhb506-998 [facility] HospitalComment on above:Performed By: #### CBC, LACTIC #### [facility] [address] [place] [address] Curtain Stitcher: FADY Garg (Bld) [#/Vol]4.15 10*6/uLNormal3.95-5.11 [facility] HospitalComment on above:Performed By: #### CBC, LACTIC #### [facility] [address] [place] [address] Curtain Stitcher: GIANNA Garg (d) [#/Vol]4.9 10*3/uLNormal3.5-11.3MFremont Memorial HospitalComment on above:Performed By: #### CBC, LACTIC #### [facility] [address] [place] [address] Curtain Stitcher: Cielo Gargintestinal Panel, [facility] 07-23-2024 Campylobacter sp DNA CARLOTTA+probe Nom (Unsp spec)NEGATIVE: No Campylobacter spp. (jejuni or coli) DNA DetectedNEGATIVE: No Campylobacter spp. (jejuni or coli) DNA DetecteBon [facility] North HospitalE. coli enterotoxigenic eltA+estB genes CARLOTTA+probe Ql (Stl)NEGATIVE: No Enterotoxigenic E. coli (ETEC) Heat-labile and heat-stable (LT/ST) DNA DetectedNEGATIVE: No Enterotoxigenic E. coli (ETEC) Heat-labile andBon [facility]. shigelloides DNA CARLOTTA+probe Ql (Stl) NegativeNEGATIVE: No Plesionomas shigelloides DNA DetectedBon [facility] HospitalSalmonella sp DNA CARLOTTA+probe Ql (Unsp spec)NegativeNEGATIVE: No Salmonella spp. DNA DetectedBon [facility] HospitalShiga toxin stx gene CARLOTTA+probe Nom (Unsp spec)NegativeNEGATIVE: No Shiga toxin-producing gene(s) DetectedBon Secours Richmond Community HospitalShigella sp DNA CARLOTTA+probe Ql (Unsp spec)NegativeNEGATIVE: No Shigella spp. / EIEC DNA DetectedBon Secours Richmond Community HospitalSpecimen Description .FECESBon Secours Richmond Community HospitalV. cholerae+parahaemolyticus rfbL+trkH+tnaA genes CARLOTTA+probe Ql (Stl)NEGATIVE: No Vibrio (V. vulnificus, V, parahaemolyticus and V. cholerae) DNA DetectedNEGATIVE: No Vibrio (V. vulnificus, V, parahaemolyticus andBon [facility] HealthY. enterocolitica recN gene CARLOTTA+probe Ql (Stl) NegativeNEGATIVE: No Yersinia enterocolitica DNA DetectedBon Secours Richmond Community HospitalBon [facility] HospitalGlucose,Whole Bloodon 68-69-3272Xxquami [Mass/Vol] 114 mg/vIUoxv30-224BdariOhio Valley HospitalHepatic Function Panelon 03-81-0087Wnbnlla [Mass/Vol]2.7 g/dLLow3.5 - 5.2 g/dLBon [facility] Albumin/Globulin [Mass ratio]1.0 {ratio}1.0 - 2.5Bon [facility] HealthALP [Catalytic activity/Vol]64 U/L35 - 104 U/LBon [facility] HealthALT [Catalytic activity/Vol]U/LLow10 - 35 U/LBon [facility] HealthAST [Catalytic activity/Vol]16 U/L10 - 35 U/LBon [facility] HealthBilirubin [Mass/Vol]0.2 mg/dL0.0 - 1.2 mg/dLBon [facility] HealthBilirubin.direct [Mass/Vol]mg/dL0.0 - 0.2 mg/dLBon [facility] HealthBilirubin.indirect [Mass/Vol]Can not be calculated0.0 - 1.0 mg/dLBon [facility] HealthGlobulin (S) [Mass/Vol]2.6 g/dL Bon [facility] HealthProtein [Mass/Vol]5.3 g/dLLow6.6 - 8.7 g/dLBon [facility] HospitalLiver Profileon 70-09-3073Yyywelh [Mass/Vol]2.7 g/dLLow3.5-5.2MFremont Memorial HospitalComment on above:Performed By: #### CRP, HCG, LIP, TROPI, CDP, CP #### [facility] [address] [place] [address] Curtain Stitcher: Dioni Merlos MDAlbumin/Glob Ratio1.7Errlpd3.0-2.5Ohio Valley HospitalComment on above:Performed By: #### CRP, HCG, LIP, TROPI, CDP, CP #### [address] [address] Curtain Stitcher: Ulysses Garg Phos64 U/INjkhwh22-576GygbsOhio Valley HospitalComment on above:Performed By: #### CRP, HCG, LIP, TROPI, CDP, CP #### [address] [address] Curtain Stitcher: Dioni Merlos MDALT [Catalytic activity/Vol]U/UGry74-22XhlfmOhio Valley HospitalComment on above:Performed By: #### CRP, HCG, LIP, TROPI, CDP, CP #### [address] [address] Curtain Stitcher: Dioni Merlos MDAST [Catalytic activity/Vol]16 U/LKhgelf90-69 [facility] HospitalComment on above:Performed By: #### CRP, HCG, LIP, TROPI, CDP, CP #### [facility] [address] [place] [address] Curtain Stitcher: Dioni Merlos MDBilirubin [Mass/Vol]0.2 mg/dLNormal0.0-1.2MFremont Memorial HospitalComment on above:Performed By: #### CRP, HCG, LIP, TROPI, CDP, CP #### [facility] [address] [place] [address] [id number] Curtain Stitcher: Dioin Merlos MDBilirubin, IndirectCan not be calculatedNormal 0.0-1.0Ohio Valley HospitalComment on above:Performed By: #### CRP, HCG, LIP, TROPI, CDP, CP #### [facility] [address] [place] [address] Curtain Stitcher: Dioni Merlos MDBilirubin.indirect [Mass/Vol]mg/dLNormal0.0-0.2 [facility] HospitalComment on above:Performed By: #### CRP, HCG, LIP, TROPI, CDP, CP #### [facility] [address] [place] [address] Curtain Stitcher: Dioni Merlos MDGlobulin (S) [Mass/Vol]2.6 g/dLNormalOhio Valley HospitalComment on above:Performed By: #### CRP, HCG, LIP, TROPI, CDP, CP #### [facility] [address] [place] [address] Curtain Stitcher: RACHID Gargrotein [Mass/Vol]5.3 g/dLLow6.6-8.7Ohio Valley HospitalComment on above:Performed By: #### CRP, HCG, LIP, TROPI, CDP, CP #### [facility] [address] [place] [address] Curtain Stitcher: Chris Garggnesiumon 06-76-0244Qeiihmeiq [Mass/Vol]2.0 mg/dL1.6 - 2.6 mg/dLBon [facility] HospitalMagnesium [Mass/Vol]2.0 mg/dLNormal 1.6-2.6MFremont Memorial HospitalComment on above:Performed By: #### CRP, HCG, LIP, TROPI, CDP, CP #### [facility] [address] [place] [address] Curtain Stitcher: Dioni Merlos MDNo Panel Informationon 26-33-4673Agvjsjxcjaeefb and review of laboratory resultsAbnormalMartinsville Memorial HospitalPOC Glucose Fingerstickon 05-86-6855Shhwdrk [Mass/Vol]114 mg/dLHigh 65 - 105 mg/dLBon [facility] HospitalInterpretation and review of laboratory resultsAbnormalMartinsville Memorial HospitalPhosphoruson 97-30-2111Ovmgykowq [Mass/Vol]2.9 mg/dL2.5 - 4.5 mg/dLBon [facility] Phosphorus, Inorg.on 40-89-8550Twzfqkbtqx, Inorg.2.9 mg/dLNormal2.5-4.5[facility] HospitalComment on above:Performed By: #### CRP, HCG, LIP, TROPI, CDP, CP #### [facility] [address] [place] [address] Curtain Stitcher: Alfredo Garg Batteryon [id number] sp PCRNEGATIVE: No Campylobacter spp. (jejuni or coli) DNA DetectedNoalCUniversity Hospitals Beachwood Medical CenterComment on above:Performed By: #### CRP #### [facility] [address] [place] [address] Curtain Stitcher: ZORAN Garg coli enterotox PCRNEGATIVE: No Enterotoxigenic E. coli (ETEC) Heat-labile and heat-stable (LT/ST)NormalEECNEGOhio Valley HospitalComment on above:Result Comment: DNA DetectedPerformed By: #### CRP #### [facility] [address] [place] [address] Curtain Stitcher: Devin Garg sp PCRNegativeNoRiverside Methodist HospitalComment on above:Performed By: #### CRP #### [facility] [address] [place] [address] Curtain Stitcher: Librado Garg sp PCRNegativeNormalSALNEGOhio Valley HospitalComment on above:Performed By: #### CRP #### [address] [address] Curtain Stitcher: Ji Gargoxin gene PCRNegativeNormalSTXFayette County Memorial HospitalComment on above:Performed By: #### CRP #### [address] [address] Curtain Stitcher: Catarino Gargla sp PCRNegativeNoalSHIFayette County Memorial HospitalComment on above:Performed By: #### CRP #### [address] [address] Curtain Stitcher: Estephania Garg sp PCRNEGATIVE: No Vibrio (V. vulnificus, V, parahaemolyticus and V. cholerae) DNANormalVIBNEGOhio Valley HospitalComment on above:Result Comment: DetectedPerformed By: #### CRP #### [address] [address] Curtain Stitcher: Beltran Gargia gene PCRNegativeNoalYERFayette County Memorial HospitalComment on above:Performed By: #### CRP #### [address] [address] Curtain Stitcher: Dioni Merlos MDTriglycerideon [id number] [Mass/Vol] 124 mg/dLNINF - 150 mg/dLBon Bethesda North HospitalComment on above: Triglyceride Guidelines: <150 Desirable 150-199 Borderline 200-499 High >499 Very high Based on AHA Guidelines for fasting triglyceride, April 2012. Triglycerideson 00-91-1824Ymbrzlervppn [Mass/Vol]124 mg/dLNormal<150Ohio Valley HospitalComment on above:Result Comment: Triglyceride Guidelines: <150 Desirable 150-199 Borderline 200-499 High >499 Very high Based on AHA Guidelines for fasting triglyceride, April 2012.Performed By: #### CRP, HCG, LIP, TROPI, CDP, CP #### [facility] [address] [place] [address] Curtain Stitcher: Dioni Merlos [facility] with Auto Differentialon [id number] (Bld) [#/Vol]0.04 10*3/uLBon Secours Mercy HealthBasophils/100 WBC (Bld)1 %0 - 2 %[facility] HealthEosinophils (Bld) [#/Vol]0.19 10*3/uLBon Secours Mercy HealthEosinophils/100 WBC (Bld)3 %1 - 4 %[facility] Erythrocyte distribution width (RBC) [Ratio]15.4 %High11.8 - 14.4 %[facility] HealthHematocrit (Bld) [Volume fraction]39.4 %36.3 - 47.1 %[facility] Centery HealthHemoglobin (Bld) [Mass/Vol]11.8 g/dLLow11.9 - 15.1 g/dLBon Secours Mercy [facility] CampusImmature granulocytes (Bld) [#/Vol][facility] HealthImmature granulocytes/100 WBC (Bld)0 %0[facility]ery HealthInterpretation and review of laboratory resultsAbnormalBon Secours Mercy HealthLymphocytes/100 WBC (Bld)14 %Low24 - 43 %[facility] HealthLymphocytes/100 WBC (Bld)0.79 %LowBon Secours [facility] Va Medical Centery Morrow County HospitalH (RBC) [Entitic mass]27.5 pg25.2 - 33.5 pgBon Secours [facility] Medical Centery [facility] HospitalHC (RBC) [Mass/Vol]29.9 g/dL28.4 - 34.8 g/dLBon Secours [facility] Centery [facility] HospitalV (RBC) [Entitic vol]91.8 fL82.6 - 102.9 fLBon Secours Mercy Health Monocytes/100 WBC (Bld)8 %3 - 12 %[facility] Centery HealthMonocytes/100 WBC (Bld)0.46 %[facility] HealthNeutrophils/100 WBC (Bld)73 %High36 - 65 %[facility] HospitalNucleated RBC/100 WBC (Bld) [Ratio]0.0 %0.0 per 100 WBCBon Secours Richmond Community HospitalPlatelet mean volume (Bld) [Entitic vol]9.4 fL8.1 - 13.5 fL [facility] HospitalPlatelets (Bld) [#/Vol]294 10*3/uLBon Secours Richmond Community HospitalRBC (Bld) [#/Vol]4.29 10*6/uL3.95 - 5.11 m/uLBon Secours Richmond Community HospitalRBC (Bld) [#/Vol]ANISOCYTOSIS PRESENTBon Secours Richmond Community HospitalSegmented neutrophils/100 WBC (Bld)4.04 %[facility] HospitalWBC other (Bld) [#/Vol] 5.5Bon [facility] CenterCBC with Diffon 07-22-2024 Abs. Basophil0.04 k/uLNormal0.00-0.20Ohio Valley HospitalComment on above:Performed By: #### CRP, HCG, LIP, TROPI, CDP, CP #### [facility] [address] [place] [address] Curtain Stitcher: Ruba Garg.Imm.Granulocyte<0.57Kezvik5.00-0.30Ohio Valley HospitalComment on above:Performed By: #### CRP, HCG, LIP, TROPI, CDP, CP #### [facility] [address] [place] [address] Curtain Stitcher: MDAbs. BritanyNeutrophil (Seg)4.04 k/uLNormal1.50-8.10 [facility] HospitalComment on above:Performed By: #### CRP, HCG, LIP, TROPI, CDP, CP #### [facility] [address] [place] [address] Curtain Stitcher: Dioni Merlos MDBasophils/100 WBC (Bld)1 %Normal0-2MercTustin Rehabilitation HospitalComment on above:Performed By: #### CRP, HCG, LIP, TROPI, CDP, CP #### [address] [address] Curtain Stitcher: Dioni Merlos MDEosinophils (Bld) [#/Vol]0.19 10*3/uLNormal 0.00-0.44Ohio Valley HospitalComment on above:Performed By: #### CRP, HCG, LIP, TROPI, CDP, CP #### [address] [address] Curtain Stitcher: ZORAN Gargosinophils/100 WBC (Bld)3 %Normal1-4Ohio Valley HospitalComment on above:Performed By: #### CRP, HCG, LIP, TROPI, CDP, CP #### [place] [address] Curtain Stitcher: Dioni Merlos MDErythrocyte distribution width (RBC) [Ratio]15.4 %High11.8-14.4Ohio Valley HospitalComment on above:Performed By: #### CRP, HCG, LIP, TROPI, CDP, CP #### [address] [address] Curtain Stitcher: Dioni Merlos MDHematocrit (Bld) [Volume fraction]39.4 %Normal 36.3-47.1MFremont Memorial HospitalComment on above:Performed By: #### CRP, HCG, LIP, TROPI, CDP, CP #### [address] [address] Curtain Stitcher: Dioni Merlos MDHemoglobin (Bld) [Mass/Vol]11.8 g/dLLow11.9-15.1 [facility] HospitalComment on above:Performed By: #### CRP, HCG, LIP, TROPI, CDP, CP #### [facility] [address] [place] [address] Curtain Stitcher: Roger Garg granulocytes/100 WBC (Bld)0 %Normal0 Ohio Valley HospitalComment on above:Performed By: #### CRP, HCG, LIP, TROPI, CDP, CP #### [address] [address] Curtain Stitcher: Dioni Merlos MDLymphocytes (Bld) [#/Vol]0.79 10*3/uLLow 1.10-3.70Ohio Valley HospitalComment on above:Performed By: #### CRP, HCG, LIP, TROPI, CDP, CP #### [place] [address] Curtain Stitcher: Dereck Gargmphocytes/100 WBC (Bld)14 %Djt19-51TzaqoOhio Valley HospitalComment on above:Performed By: #### CRP, HCG, LIP, TROPI, CDP, CP #### [place] [address] Curtain Stitcher: JAN GargCH (RBC) [Entitic mass]27.5 guZzaapg28.2-33.5 [facility] HospitalComment on above:Performed By: #### CRP, HCG, LIP, TROPI, CDP, CP #### [place] [address] Curtain Stitcher: JAN GargCHC (RBC) [Mass/Vol]29.9 g/iJNegiko49.4-34.8 [facility] HospitalComment on above:Performed By: #### CRP, HCG, LIP, TROPI, CDP, CP #### [address] [address] Curtain Stitcher: JAN GargCV (RBC) [Entitic vol]91.8 cWQziphm09.6-102.9 [facility] HospitalComment on above:Performed By: #### CRP, HCG, LIP, TROPI, CDP, CP #### [facility] [address] [place] [address] Curtain Stitcher: JAN Gargonocytes (Bld) [#/Vol]0.46 10*3/uLNormal 0.10-1.20Ohio Valley HospitalComment on above:Performed By: #### CRP, HCG, LIP, TROPI, CDP, CP #### [facility] [address] [place] [address] Curtain Stitcher: JAN Gargonocytes/100 WBC (Bld)8 %Normal3-12Ohio Valley HospitalComment on above:Performed By: #### CRP, HCG, LIP, TROPI, CDP, CP #### [address] [address] Curtain Stitcher: Laly Garg (Seg)73 %Vbrk54-17LbgirOhio Valley HospitalComment on above:Performed By: #### CRP, HCG, LIP, TROPI, CDP, CP #### [facility] [address] [place] [address] Curtain Stitcher: Dioni Merlos MDNRBC Automated0.0 per 100 WBCNormal0.0Ohio Valley HospitalComment on above:Performed By: #### CRP, HCG, LIP, TROPI, CDP, CP #### [facility] [address] [place] [address] Curtain Stitcher: Latisha Gargteankush mean volume (Bld) [Entitic vol]9.4 fL Normal8.1-13.5Ohio Valley HospitalComment on above:Performed By: #### CRP, HCG, LIP, TROPI, CDP, CP #### [facility] [address] [place] [address] Curtain Stitcher: Dioni Madoff, MDPlatelets (Bld) [#/Vol]294 10*3/lCZxpsec843-281 [facility] HospitalComment on above:Performed By: #### CRP, HCG, LIP, TROPI, CDP, CP #### [facility] [address] [place] [address] Curtain Stitcher: FADY Garg (Bld) [#/Vol]4.29 10*6/uLNormal3.95-5.11 [facility] HospitalComment on above:Performed By: #### CRP, HCG, LIP, TROPI, CDP, CP #### [facility] [address] [place] [address] Curtain Stitcher: FADY Garg morphology finding Nom (Bld)ANISOCYTOSIS PRESENTNormalOhio Valley HospitalComment on above:Performed By: #### CRP, HCG, LIP, TROPI, CDP, CP #### [facility] [address] [place] [address] Curtain Stitcher: GIANNA Garg (Bld) [#/Vol]5.5 10*3/uLNormal3.5-11.3MFremont Memorial HospitalComment on above:Performed By: #### CRP, HCG, LIP, TROPI, CDP, CP #### [facility] [address] [place] [address] Curtain Stitcher: ANGIE Gargsan [facility]an hospital Metabolic Profon [id number] [Mass/Vol]3.1 g/dLLow3.5-5.2MFremont Memorial HospitalComment on above: Performed By: #### CRP, HCG, LIP, TROPI, CDP, CP #### [facility] [address] [place] [address] Curtain Stitcher: Dioni Merlos MDAlbumin/Glob Ratio1.2Mwfmdp3.0-2.5Ohio Valley HospitalComment on above:Performed By: #### CRP, HCG, LIP, TROPI, CDP, CP #### [address] [address] Curtain Stitcher: Ulysses Garg Phos72 U/BBevhcl72-059LtnajOhio Valley HospitalComment on above:Performed By: #### CRP, HCG, LIP, TROPI, CDP, CP #### [address] [address] Curtain Stitcher: Dioni Merlos MDALT [Catalytic activity/Vol]U/JNjq20-03NuqcrOhio Valley HospitalComment on above:Performed By: #### CRP, HCG, LIP, TROPI, CDP, CP #### [address] [address] Curtain Stitcher: Obed Garg gap [Moles/Vol]14 mmol/LNormal9-16Ohio Valley HospitalComment on above:Performed By: #### CRP, HCG, LIP, TROPI, CDP, CP #### [address] [address] Curtain Stitcher: Dioni Merlos MDAST [Catalytic activity/Vol]15 U/MLzdwvj38-56 [facility] HospitalComment on above:Performed By: #### CRP, HCG, LIP, TROPI, CDP, CP #### [address] [address] Curtain Stitcher: Dioni Merlos MDBilirubin [Mass/Vol]0.2 mg/dLNormal0.0-1.2MFremont Memorial HospitalComment on above:Performed By: #### CRP, HCG, LIP, TROPI, CDP, CP #### [address] [address] Curtain Stitcher: Dioni Merlos MDCalcium [Mass/Vol]8.7 mg/dLNormal8.6-10.4[facility] Valley HospitalComment on above:Performed By: #### CRP, HCG, LIP, TROPI, CDP, CP #### [facility] [address] [place] [address] Curtain Stitcher: ANGIE Garghloride [Moles/Vol]107 mmol/MNjjvzs25-750EmyynOhio Valley HospitalComment on above:Performed By: #### CRP, HCG, LIP, TROPI, CDP, CP #### [facility] [address] [place] [address] Curtain Stitcher: Dioni Merlos MDCO2 [Moles/Vol]14 mmol/QJbk35-89PgbrsOhio Valley HospitalComment on above:Performed By: #### CRP, HCG, LIP, TROPI, CDP, CP #### [facility] [address] [place] [address] Curtain Stitcher: ANGIE Gargreatinine [Mass/Vol]0.5 mg/dLLow0.6-0.9Ohio Valley HospitalComment on above:Performed By: #### CRP, HCG, LIP, TROPI, CDP, CP #### [facility] [address] [place] [address] Curtain Stitcher: Dioni Merlos MDGFR/1.73 sq M.predicted among non-blacks MDRD (S/P/Bld) [Vol rate/Area]mL/min/{1.73_m2}Normal>60[facility] Valley HospitalComment on above:Result Comment: These results are not intended for [...] or following therapy that affects renal tubular secretion.Performed By: #### CRP, HCG, LIP, TROPI, CDP, CP #### [facility] [address] [place] [address] Curtain Stitcher: Dioni Merlos MDGlucose [Mass/Vol]72 mg/sNYvp33-65QyyynFremont Memorial HospitalComment on above:Performed By: #### CRP, HCG, LIP, TROPI, CDP, CP #### [facility] [address] [place] [address] Curtain Stitcher: Dioni Merlos MDPotassium [Moles/Vol]4.6 mmol/LNormal3.7-5.3 [facility] HospitalComment on above:Performed By: #### CRP, HCG, LIP, TROPI, CDP, CP #### [facility] [address] [place] [address] Curtain Stitcher: Dioni Merlos MDProtein [Mass/Vol]5.9 g/dLLow6.6-8.7Ohio Valley HospitalComment on above:Performed By: #### CRP, HCG, LIP, TROPI, CDP, CP #### [facility] [address] [place] [address] Curtain Stitcher: Dioni Merlos MDSodium [Moles/Vol]135 mmol/ZZni829-807XwpywOhio Valley HospitalComment on above:Performed By: #### CRP, HCG, LIP, TROPI, CDP, CP #### [facility] [address] [place] [address] Curtain Stitcher: Dioni Merlos MDUrea nitrogen [Mass/Vol]mg/dLLow6-20[facility] HospitalComment on above:Performed By: #### CRP, HCG, LIP, TROPI, CDP, CP #### [facility] [address] [place] [address] Curtain Stitcher: ANGIE Gargomprehensive Metabolic Panelon 07-22-2024 Albumin [Mass/Vol]3.1 g/dLLow3.5 - 5.2 g/dLBon [facility] Albumin/Globulin [Mass ratio]1.1 {ratio}1.0 - 2.5Bon [facility] Centerours [facility] Centery HealthALP [Catalytic activity/Vol]72 U/L35 - 104 U/LBon Secours [facility]ery HealthALT [Catalytic activity/Vol]U/LLow10 - 35 U/LBon Secours Mercy HealthAnion gap [Moles/Vol]14 mmol/L9 - 16 mmol/LBon [facility]ours [facility] Centery HealthAST [Catalytic activity/Vol]15 U/L10 - 35 U/LBon Secours [facility] Centery HealthBilirubin [Mass/Vol]0.2 mg/dL0.0 - 1.2 mg/dLBon Secours [facility] Centery HealthCalcium [Mass/Vol]8.7 mg/dL8.6 - 10.4 mg/dLBon Secours Mercy HealthChloride [Moles/Vol]107 mmol/L98 - 107 mmol/LBon Secours [facility] Centery HealthCO2 [Moles/Vol]14 mmol/LLow20 - 31 mmol/LBon [facility]ours [facility]ery HealthCreatinine [Mass/Vol]0.5 mg/dLLow0.6 - 0.9 mg/dLBon Secours [facility] Medical CenterCoSchedule HealthEst, Glom Filt Rate - PINFBon SecSelect Medical Specialty Hospital - TrumbullComment on above: These results are not intended [...] therapy that affects renal tubular secretion. Glucose [Mass/Vol]72 mg/dLLow74 - 99 mg/dLBon [facility] HealthInterpretation and review of laboratory resultsAbnormalBon [facility] Centerours [facility] HealthPotassium [Moles/Vol]4.6 mmol/L3.7 - 5.3 mmol/LBon Secours [facility] Centery HealthProtein [Mass/Vol] 5.9 g/dLLow6.6 - 8.7 g/dLBon [facility] HealthSodium [Moles/Vol]135 mmol/LLow 136 - 145 mmol/LBon Secours [facility] Centery HealthUrea nitrogen [Mass/Vol]mg/dLLow6 - 20 mg/dLBon Secours Mansfield HospitalBon SecSelect Medical Specialty Hospital - TrumbullLactic Acidon 01-18-2025 Lactic Acid, Whole Blood1.0 mmol/L0.7 - 2.1 mmol/LBon [facility] CenterLactic Acid,Whole Bl1.0 mmol/LNormal0.7-2.1MFremont Memorial HospitalComment on above:Performed By: #### LACTIC #### [facility] [address] [place], [place] [id number] Curtain Stitcher: Dioni Merlos MDLactic Acid, Whole Blood1.0 mmol/L0.7 - 2.1 mmol/LBon [facility] CenterLactic Acid,Whole Bl1.0 mmol/LNormal0.7-2.1MFremont Memorial HospitalComment on above:Performed By: #### LACTIC #### [facility] [address] [place], [place] [address] Curtain Stitcher: Juliet Gargctic Acid, Whole Blood0.9 mmol/L0.7 - 2.1 mmol/LBon [facility] Surgery CenterLactic Acid,Whole Bl0.9 mmol/LNormal0.7-2.1MFremont Memorial HospitalComment on above:Performed By: #### CBC, LACTIC #### [facility] [address] [place] [address] Curtain Stitcher: Dioni Merlos MDC-Reactive Proteinon [id number] High sensitivity method [Mass/Vol]47.1 mg/LHigh0.0 - 5.0 mg/LBon [facility] Interpretation and review of laboratory resultsAbnormalShenandoah Memorial HospitalCRP [Mass/Vol]47.1 mg/LHigh0.0-5.0Ohio Valley HospitalComment on above:Performed By: #### CRP, HCG, LIP, TROPI, CDP, CP #### [facility] [address] [place] [address] Curtain Stitcher: Patricia Garg Acidon 58-12-6412Yeclgt Acid, Whole Blood 0.7 mmol/L0.7 - 2.1 mmol/LBon [facility] Surgery CenterLactic Acid,Whole Bl0.7 mmol/LNormal0.7-2.1MFremont Memorial HospitalComment on above:Performed By: #### CRP #### [facility] [address] [place], [place] [id number] Curtain Stitcher: Dioni Merlos MDLactic Acid, Whole Blood0.8 mmol/L0.7 - 2.1 mmol/LBon [facility] Surgery CenterLactic Acid,Whole Bl0.8 mmol/LNormal0.7-2.1MFremont Memorial HospitalComment on above:Performed By: #### CRP, HCG, LIP, TROPI, CDP, CP #### [facility] [address] [place], [place] [address] Curtain Stitcher: Dioni Merlos MDLactic Acid, Whole Blood0.8 mmol/L0.7 - 2.1 mmol/LBon [facility] CenterLactic Acid,Whole Bl0.8 mmol/LNormal0.7-2.1MFremont Memorial HospitalComment on above:Performed By: #### CBC, LACTIC #### [facility] [address] [place], [place] [address] Curtain Stitcher: CASS Gargedimentation Rateon [id number] Photometric method (Bld) [Velocity]24HInova Children's HospitalInterpretation and review of laboratory resultsAbnormalMartinsville Memorial Hospital Sedimentation Rate24 mm/HrHigh0-20[facility] HospitalComment on above:Performed By: #### CRP, HCG, LIP, TROPI, CDP, CP #### [facility] [address] [place] [id number] Curtain Stitcher: Dioni Madoff, MDXR ABDOMEN FOR NG/OG/NE TUBE PLACEMENTon [id number] ABDOMEN FOR NG/OG/NE TUBE PLACEMENTEXAMINATION: ONE SUPINE XRAY VIEW(S) OF THE ABDOMEN [...] Signed by: Fartun Herrera MD 07/21/24 Final resultNormalMerKindred HospitalEnteric catheter tip terminates in the mid to distal gastric body. [facility] CONSOLIDATEDEXAMINATION: ONE SUPINE XRAY VIEW(S) OF THE ABDOMEN [...] bowel obstruction. No free air is identified. [facility] Fartun Saeed MD - 07/21/2024 EXAMINATION: ONE SUPINE XRAY [...] in the mid to distal gastric body. [facility] HospitalRadiology Study observation (narrative)[facility] HospitalXR ABDOMEN FOR NG/OG/NE TUBE PLACEMENTOrdered By: Fartun Herrera on 72-22-0621E[facility] Work Phone: Basic Metab w/rfx MGon [id number] gap [Moles/Vol] 10 mmol/LNormal9-16[facility] HospitalComment on above:Performed By: #### CBC, LACTIC #### [facility] [address] [place] [address] Curtain Stitcher: ANGIE Gargalcium [Mass/Vol]8.0 mg/dLLow8.6-10.4Ohio Valley HospitalComment on above:Performed By: #### CBC, LACTIC #### [facility] [address] [place] [address] Curtain Stitcher: ANGIE Garghloride [Moles/Vol]103 mmol/CRaunqr09-763IebpsOhio Valley HospitalComment on above:Performed By: #### CBC, LACTIC #### [facility] [place] [address] Curtain Stitcher: Dioni Merlos MDCO2 [Moles/Vol]25 mmol/DPwgfrw48-36SpuucOhio Valley HospitalComment on above:Performed By: #### CBC, LACTIC #### [facility] [address] [place] [address] Curtain Stitcher: ANGIE Gargreatinine [Mass/Vol]0.4 mg/dLLow0.6-0.9[facility] HospitalComment on above:Performed By: #### CBC, LACTIC #### [facility] [address] [place] [address] Curtain Stitcher: Dioni Merlos MDGFR/1.73 sq M.predicted among non-blacks MDRD (S/P/Bld) [Vol rate/Area]mL/min/{1.73_m2}Normal>60[facility] Medical CenterComment on above:Result Comment: These results are not intended for [...] or following therapy that affects renal tubular secretion.Performed By: #### CBC, LACTIC #### [facility] [address] [place] [address] Curtain Stitcher: Dioni Merlos MDGlucose [Mass/Vol]72 mg/jLWpl32-43GgamqFremont Memorial HospitalComment on above:Performed By: #### CBC, LACTIC #### [facility] [address] [place] [address] Curtain Stitcher: RACHID Gargotassium [Moles/Vol]3.1 mmol/LLow3.7-5.3MFremont Memorial HospitalComment on above:Performed By: #### CBC, LACTIC #### [facility] [address] [place] [address] Curtain Stitcher: CASS Gargodium [Moles/Vol]138 mmol/YYkgaed483-981GrttgOhio Valley HospitalComment on above:Performed By: #### CBC, LACTIC #### [facility] [address] [place] [address] Curtain Stitcher: Dioni Merlos MDUrea nitrogen [Mass/Vol]4 mg/dLLow6-20[facility] HospitalComment on above:Performed By: #### FOZIA, LACTIC #### [facility] [address] [place] [address] Curtain Stitcher: Dioni Merlos MDBasi Metabolic Panel w/ Reflex to MGon [id number] gap [Moles/Vol]10 mmol/L9 - 16 mmol/LBon [facility] Calcium [Mass/Vol]8.0 mg/dLLow8.6 - 10.4 mg/dLBon Secours Mer[facility] HealthChloride [Moles/Vol]103 mmol/L98 - 107 mmol/LBon Secours [facility] HealthCO2 [Moles/Vol]25 mmol/L20 - 31 mmol/LBon [facility]ours [facility] HealthCreatinine [Mass/Vol]0.4 mg/dLLow0.6 - 0.9 mg/dLBon Secours [facility] Centery HealthEst, Glom Filt Rate- PINFBon SecSelect Medical Specialty Hospital - TrumbullComment on above: These results are not intended [...] therapy that affects renal tubular secretion. Glucose [Mass/Vol]72 mg/dLLow74 - 99 mg/dLBon Secours [facility] Centery HealthPotassium [Moles/Vol]3.1 mmol/LLow3.7 - 5.3 mmol/LBon [facility]ours [facility] Centery HealthSodium [Moles/Vol]138 mmol/L136 - 145 mmol/LBon [facility]ours [facility] Centery HealthUrea nitrogen [Mass/Vol]4 mg/dLLow6 - 20 mg/dLBon Secours Mansfield HospitalC-Reactive Proteinon [id number] High sensitivity method [Mass/Vol]39.2 mg/LHigh0.0 - 5.0 mg/LBon Secours [facility] Centery HealthCRP [Mass/Vol]39.2 mg/LHigh0.0-5.0[facility] CenterComment on above:Performed By: #### CBC, LACTIC #### [facility] [address] [place] [address] Curtain Stitcher: Dioni Merlos [facility] with Auto Differentialon [id number] (Bld) [#/Vol]0.03 10*3/uLBon Secours [facility] Medical Centery [facility] CampusBasophils/100 WBC (Bld)1 %0 - 2 %[facility] HospitalEosinophils (Bld) [#/Vol]0.09 10*3/uLBon Secours [facility] Centery HealthEosinophils/100 WBC (Bld)2 %1 - 4 %[facility] Erythrocyte distribution width (RBC) [Ratio]15.9 %High11.8 - 14.4 %[facility] HospitalHematocrit (Bld) [Volume fraction]33.5 %Low36.3 - 47.1 %[facility] SecSelect Medical Specialty Hospital - TrumbullHemoglobin (Bld) [Mass/Vol]10.9 g/dLLow11.9 - 15.1 g/dLBon Secours Mansfield HospitalImmature granulocytes (Bld) [#/Vol][facility] HospitalImmature granulocytes/100 WBC (Bld)0 %0Bon [facility] HospitalInterpretation and review of laboratory resultsAbnormalBon SecSelect Medical Specialty Hospital - TrumbullLymphocytes/100 WBC (Bld)20 %Low24 - 43 %[facility] SecSelect Medical Specialty Hospital - TrumbullLymphocytes/100 WBC (Bld)0.97 %LowBon Genesis HospitalH (RBC) [Entitic mass]27.7 pg25.2 - 33.5 pgBon Genesis HospitalHC (RBC) [Mass/Vol]32.5 g/dL28.4 - 34.8 g/dLBon SecCleveland Clinic Children's Hospital for RehabilitationV (RBC) [Entitic vol]85.2 fL82.6 - 102.9 fLBon [facility]ours [facility] Hospital Monocytes/100 WBC (Bld)11 %3 - 12 %[facility] HospitalMonocytes/100 WBC (Bld)0.53 %[facility] HospitalNeutrophils/100 WBC (Bld)67 %High36 - 65 %[facility] HospitalNucleated RBC/100 WBC (Bld) [Ratio]0.0 %0.0 per 100 WBCBon SecSelect Medical Specialty Hospital - TrumbullPlatelet mean volume (Bld) [Entitic vol]9.6 fL8.1 - 13.5 fL [facility] SecWomen[facility] and Children[facility] HealthPlatelets (Bld) [#/Vol]223 10*3/uLBon [facility] HospitalRBC (Bld) [#/Vol]3.93 10*6/uLLow3.95 - 5.11 m/uLBon [facility] RBC (Bld) [#/Vol]ANISOCYTOSIS PRESENTBon [facility] North HospitalSegmented neutrophils/100 WBC (Bld)3.28 %Bon [facility] North HospitalWBC other (Bld) [#/Vol] 4.9Bon [facility] CenterCBC with Diffon 07-20-2024 Abs. Basophil0.03 k/uLNormal0.00-0.20[facility] HospitalComment on above:Performed By: #### CBC, LACTIC #### [facility] [address] [place] [address] Curtain Stitcher: MDAbs. BritanyImm.Granulocyte<0.02Jitdgn9.00-0.30[facility] Valley HospitalComment on above:Performed By: #### CBC, LACTIC #### [address] [address] Curtain Stitcher: MDAbs. BritanyNeutrophil (Seg)3.28 k/uLNormal1.50-8.10 [facility] HospitalComment on above:Performed By: #### CBC, LACTIC #### [address] [address] Curtain Stitcher: Dioni Merlos MDBasophils/100 WBC (Bld)1 %Normal0-2MFremont Memorial HospitalComment on above:Performed By: #### CBC, LACTIC #### [address] [address] Curtain Stitcher: Dioni Merlos MDEosinophils (Bld) [#/Vol]0.09 10*3/uLNormal 0.00-0.44[facility] HospitalComment on above:Performed By: #### CBC, LACTIC #### [address] [address] Curtain Stitcher: Dioni Merlos MDEosinophils/100 WBC (Bld)2 %Normal1-4[facility] Valley HospitalComment on above:Performed By: #### CBC, LACTIC #### [address] [address] Curtain Stitcher: Dioni Merlos MDErythrocyte distribution width (RBC) [Ratio]15.9 %High11.8-14.4[facility] Valley HospitalComment on above:Performed By: #### CBC, LACTIC #### [place] [address] Curtain Stitcher: Dioni Merlos MDHematocrit (Bld) [Volume fraction]33.5 %Low 36.3-47.1MFremont Memorial HospitalComment on above:Performed By: #### FOZIA, LACTIC #### [address] [address] Curtain Stitcher: Dioni Merlos MDHemoglobin (Bld) [Mass/Vol]10.9 g/dLLow11.9-15.1 [facility] HospitalComment on above:Performed By: #### CBC, LACTIC #### [address] [address] Curtain Stitcher: Dioni Merlso MDImmature granulocytes/100 WBC (Bld)0 %Normal0 [facility] HospitalComment on above:Performed By: #### CBC, LACTIC #### [address] [address] Curtain Stitcher: Dioni Merlos MDLymphocytes (Bld) [#/Vol]0.97 10*3/uLLow 1.10-3.70[facility] HospitalComment on above:Performed By: #### CBC, LACTIC #### [address] [address] Curtain Stitcher: Dioni Merlos MDLymphocytes/100 WBC (Bld)20 %Hhs43-04TynnjOhio Valley HospitalComment on above:Performed By: #### CBC, LACTIC #### [address] [address] Curtain Stitcher: JAN GargCH (RBC) [Entitic mass]27.7 ktRlmvgr44.2-33.5 [facility] HospitalComment on above:Performed By: #### CBC, LACTIC #### [address] [address] Curtain Stitcher: JAN GargCHC (RBC) [Mass/Vol]32.5 g/sANmdoxb99.4-34.8 [facility] HospitalComment on above:Performed By: #### CBC, LACTIC #### [address] [address] Curtain Stitcher: JAN GargCV (RBC) [Entitic vol]85.2 pIJymvel83.6-102.9 [facility] HospitalComment on above:Performed By: #### CBC, LACTIC #### [address] [address] Curtain Stitcher: AJN Gargonocytes (Bld) [#/Vol]0.53 10*3/uLNormal 0.10-1.20[facility] HospitalComment on above:Performed By: #### CBC, LACTIC #### [address] [address] Curtain Stitcher: JAN Gargonocytes/100 WBC (Bld)11 %Normal3-12[facility] Valley HospitalComment on above:Performed By: #### CBC, LACTIC #### [address] [address] Curtain Stitcher: Fer Gargutrophil (Seg)67 %Kyar03-05GzwyiOhio Valley HospitalComment on above:Performed By: #### CBC, LACTIC #### [address] [address] Curtain Stitcher: Dioni Merlos MDNRBC Automated0.0 per 100 WBCNormal0.0Ohio Valley HospitalComment on above:Performed By: #### CBC, LACTIC #### [facility] [address] [place] [address] Curtain Stitcher: Latisha Gargteankush mean volume (Bld) [Entitic vol]9.6 fL Normal8.1-13.5Ohio Valley HospitalComment on above:Performed By: #### CBC, LACTIC #### [address] [address] Curtain Stitcher: RACHID Garglatelets (Bld) [#/Vol]223 10*3/sXEonrcp042-151 [facility] HospitalComment on above:Performed By: #### CBC, LACTIC #### [address] [address] Curtain Stitcher: THEODORE GargBC (Bld) [#/Vol]3.93 10*6/uLLow3.95-5.11[facility] Valley HospitalComment on above:Performed By: #### CBC, LACTIC #### [address] [address] Curtain Stitcher: FADY Garg morphology finding Nom (Bld)ANISOCYTOSIS PRESENTNormalOhio Valley HospitalComment on above:Performed By: #### CBC, LACTIC #### [address] [address] Curtain Stitcher: HONG GargBC (Bld) [#/Vol]4.9 10*3/uLNormal3.5-11.3MFremont Memorial HospitalComment on above:Performed By: #### CBC, LACTIC #### [address] [address] Curtain Stitcher: Dioni Merlos MDFerritinon 86-51-0169Xgjdmmtt [Mass/Vol]164 ng/oBOlvl13 - 150 ng/mLBon Secours Richmond Community HospitalComment on above: FERRITIN Reference Ranges: Adult Males 20 - 60 years: 30 - 400 ng/mL Adult females 17 - 60 years: 13 - 150 ng/mL Adults greater than 60 years: no established reference range Pediatrics: no established reference range Ferritin [Mass/Vol]164 ng/dLRyax76-415JswznOhio Valley HospitalComment on above:Result Comment: FERRITIN Reference Ranges: Adult Males 20 - 60 years: 30 - 400 ng/mL Adult females 17 - 60 years: 13 - 150 ng/mL Adults greater than 60 years: no established reference range Pediatrics: no established reference rangePerformed By: #### FOZIA, LACTIC #### [address] [address] Curtain Stitcher: Micheal Garg Binding Cap.on 07-20-2024% Fe Qprdushvqg28 %Dmnule50-53FbldtOhio Valley HospitalComment on above:Performed By: #### FOZIA, LACTIC #### [address] [address] Curtain Stitcher: Tiffanie Gargn [Mass/Vol]35 ug/lCVzo56-403ZkgklOhio Valley HospitalComment on above:Performed By: #### FOZIA, LACTIC #### [address] [address] Curtain Stitcher: Kate Gargtal Fe Binding Asr672 ug/aWDgc313-142XhjsfOhio Valley HospitalComment on above:Performed By: #### CBC, LACTIC #### [address] [address] Curtain Stitcher: Dioni Merlos MDUnbound Fe Bind Sjr568 ug/xNWivalp595-106WjccdOhio Valley HospitalComment on above:Performed By: #### FOZIA, LACTIC #### [address] [id number] Curtain Stitcher: Micheal Garg and TIBCon 51-46-0393Sgen [Mass/Vol]35 ug/dLLow37 - 145 ug/dLBon [facility] North HospitalIron binding capacity [Mass/Vol] 177 ug/lWAkg339 - 450 ug/dLBon [facility] North HospitalIron saturation [Mass fraction]20 %20 - 55 %Bon [facility] WegqwxVFTE311 ug/dL112 - 347 ug/dLBon [facility] North HospitalLactic Acidon 02-30-6756Oimmio Acid, Whole Blood0.7 mmol/L 0.7 - 2.1 mmol/LBon [facility] Surgery CenterLactic Acid,Whole Bl0.7 mmol/LNormal0.7-2.1MFremont Memorial HospitalComment on above:Performed By: #### LACTIC #### [facility] [address] [place], [place] [id number] Curtain Stitcher: Juliet Gargctic Acid, Whole Blood1.4 mmol/L0.7 - 2.1 mmol/LBon [facility] Surgery CenterLactic Acid,Whole Bl1.4 mmol/LNormal0.7-2.1MFremont Memorial HospitalComment on above:Performed By: #### CRP #### [facility] [address] [place], [place] [id number] Curtain Stitcher: Chris Garggnesiumon 17-04-1919Ypuivekcw [Mass/Vol]1.7 mg/dL1.6 - 2.6 mg/dLBon [facility] CenterMagnesium [Mass/Vol]1.7 mg/dLNormal1.6-2.6MercTustin Rehabilitation HospitalComment on above:Performed By: #### CBC, LACTIC #### [facility] [address] [place] [id number] Curtain Stitcher: Dioni Merlos MDNo Panel Informationon [id number] and review of laboratory resultsAbnormalBon [facility] CenterSedimentation Rateon [id number] Photometric method (Bld) [Velocity]14Bon [facility] Surgery CenterSedimentation Rate14 mm/HrNormal0-20[facility] HospitalComment on above:Performed By: #### CBC, LACTIC #### [facility] [id number] Curtain Stitcher: LA GargR ABDOMEN (KUB) (SINGLE AP VIEW)on 72-34-9651DM ABDOMEN (KUB) (SINGLE AP VIEW)EXAMINATION: ONE SUPINE XRAY VIEW(S) OF THE ABDOMEN [...] Signed by: Kiko Alba MD 07/20/24 Final resultNormalOhio Valley HospitalXR Abdomen Single viewon 90-80-6137Cfbgxue small bowel loops seen in left upper quadrant suggest ileus or partial obstruction. Contrast seen throughout the colon excluding complete obstruction. [facility] RIS CONSOLIDATEDEXAMINATION: ONE SUPINE XRAY VIEW(S) OF THE ABDOMEN [...] Within normal limits for age Other: None [facility] Kiko Mckeon MD - 07/20/2024 EXAMINATION: ONE SUPINE XRAY [...] seen throughout the colon excluding complete obstruction. [facility] Extra LifeDominion HospitalRadiology Study observation (narrative)[facility] CampusXR Abdomen Single viewOrdered By: Kiko Alba on [id number] [employer] Work Phone: [phone]-Lrcbcpoc Proteinon [id number] High sensitivity method [Mass/Vol]30.2 mg/LHigh0.0 - 5.0 mg/LBon [facility] Interpretation and review of laboratory resultsAbnormalShenandoah Memorial HospitalCRP [Mass/Vol]30.2 mg/LHigh0.0-5.0[facility] HospitalComment on above:Performed By: #### CBC, LACTIC #### [facility] [address] [place] [address] Curtain Stitcher: Dioni Merlos [facility] with Auto Differentialon [id number] (Bld) [#/Vol][facility] HospitalBasophils/100 WBC (Bld)0 %0 - 2 %[facility] HospitalEosinophils (Bld) [#/Vol][facility] Eosinophils/100 WBC (Bld)0 %Low1 - 4 %[facility] HospitalErythrocyte distribution width (RBC) [Ratio]16.0 %High11.8 - 14.4 %[facility] Hematocrit (Bld) [Volume fraction]42.3 %36.3 - 47.1 %[facility] Hemoglobin (Bld) [Mass/Vol]14.1 g/dL11.9 - 15.1 g/dLBon [facility] Immature granulocytes (Bld) [#/Vol]Bon [facility] HospitalImmature granulocytes/100 WBC (Bld)0 %0Bon [facility] HospitalInterpretation and review of laboratory resultsAbnormalBon SecSelect Medical Specialty Hospital - TrumbullLymphocytes/100 WBC (Bld)18 %Low24 - 43 %[facility] HospitalLymphocytes/100 WBC (Bld)1.54 %[facility] CenterH (RBC) [Entitic mass]27.8 pg25.2 - 33.5 pgBon Genesis HospitalHC (RBC) [Mass/Vol]33.3 g/dL28.4 - 34.8 g/dLBon Genesis HospitalV (RBC) [Entitic vol]83.3 fL82.6 - 102.9 fLBon Secours Richmond Community HospitalMonocytes/100 WBC (Bld)8 %3 - 12 %[facility] HospitalMonocytes/100 WBC (Bld)0.72 %[facility] HospitalNeutrophils/100 WBC (Bld)74 %High36 - 65 %[facility] HospitalNucleated RBC/100 WBC (Bld) [Ratio]0.0 %0.0 per 100 WBCBon [facility] North HospitalPlatelet mean volume (Bld) [Entitic vol]9.7 fL8.1 - 13.5 fLBon Secours Richmond Community HospitalPlatelets (Bld) [#/Vol]384 10*3/uLBon [facility] HospitalRBC (Bld) [#/Vol]5.08 10*6/uL3.95 - 5.11 m/uLBon [facility] HospitalRBC (Bld) [#/Vol] ANISOCYTOSIS PRESENTBon [facility] North HospitalSegmented neutrophils/100 WBC (Bld) 6.44 %Bon [facility] HospitalWBC other (Bld) [#/Vol]8.8Bon [facility] Bon [facility] with Diffon 08-89-4863Koa. Basophil<0.03Normal 0.00-0.20[facility] HospitalComment on above:Performed By: #### CBC, LACTIC #### [address] [address] Curtain Stitcher: Ruba Garg. Eosinophil<0.17Rehvkt5.00-0.44[facility] Valley HospitalComment on above:Performed By: #### CBC, LACTIC #### [address] [address] Curtain Stitcher: MDAbs. BritanyImm.Granulocyte<0.21Znvnzi2.00-0.30[facility] HospitalComment on above:Performed By: #### FOZIA, LACTIC #### [address] [address] Curtain Stitcher: Ruba Garg.Neutrophil (Seg)6.44 k/uLNormal1.50-8.10 [facility] HospitalComment on above:Performed By: #### CBC, LACTIC #### [address] [address] Curtain Stitcher: Dioni Merlos MDBasophils/100 WBC (Bld)0 %Normal0-2MFremont Memorial HospitalComment on above:Performed By: #### CBC, LACTIC #### [address] [address] Curtain Stitcher: Dioni Merlos MDEosinophils/100 WBC (Bld)0 %Low1-4[facility] HospitalComment on above:Performed By: #### CBC, LACTIC #### [address] [address] Curtain Stitcher: Dioni Merlos MDErythrocyte distribution width (RBC) [Ratio]16.0 %High11.8-14.4Mer[facility] Keeler Medical CenterComment on above:Performed By: #### CBC, LACTIC #### [address] [address] Curtain Stitcher: Dioni Merlos MDHematocrit (Bld) [Volume fraction]42.3 %Normal 36.3-47.1MFremont Memorial HospitalComment on above:Performed By: #### CBC, LACTIC #### [address] [address] Curtain Stitcher: Dioni Merlos MDHemoglobin (Bld) [Mass/Vol]14.1 g/dLNormal 11.9-15.1MFremont Memorial HospitalComment on above:Performed By: #### CBC, LACTIC #### [address] [address] Curtain Stitcher: Johanny Gargmature granulocytes/100 WBC (Bld)0 %Normal0 [facility] HospitalComment on above:Performed By: #### CBC, LACTIC #### [address] [address] Curtain Stitcher: Dioni Merlos MDLymphocytes (Bld) [#/Vol]1.54 10*3/uLNormal 1.10-3.70[facility] HospitalComment on above:Performed By: #### CBC, LACTIC #### [address] [address] Curtain Stitcher: Dereck Gargmphocytes/100 WBC (Bld)18 %Swl22-22CconrOhio Valley HospitalComment on above:Performed By: #### CBC, LACTIC #### [address] [address] Curtain Stitcher: JAN GargCH (RBC) [Entitic mass]27.8 owPopcqu37.2-33.5 [facility] HospitalComment on above:Performed By: #### CBC, LACTIC #### [address] [address] Curtain Stitcher: JAN GargCHC (RBC) [Mass/Vol]33.3 g/aUAcoful89.4-34.8 [facility] HospitalComment on above:Performed By: #### CBC, LACTIC #### [place] [address] Curtain Stitcher: JAN GargCV (RBC) [Entitic vol]83.3 aGGkebvf06.6-102.9 [facility] HospitalComment on above:Performed By: #### CBC, LACTIC #### [place] [address] Curtain Stitcher: JAN Gargonocytes (Bld) [#/Vol]0.72 10*3/uLNormal 0.10-1.20[facility] HospitalComment on above:Performed By: #### CBC, LACTIC #### [place] [address] Curtain Stitcher: JAN Gagronocytes/100 WBC (Bld)8 %Normal3-12[facility] HospitalComment on above:Performed By: #### CBC, LACTIC #### [place] [address] Curtain Stitcher: Dioni Merlos MDNeutrophil (Seg)74 %Dkwy66-46UsgscOhio Valley HospitalComment on above:Performed By: #### CBC, LACTIC #### [address] [address] Curtain Stitcher: Dioni Merlos MDNRBC Automated0.0 per 100 WBCNormal0.0[facility] Valley HospitalComment on above:Performed By: #### CBC, LACTIC #### [address] [address] [place] [address] Curtain Stitcher: RACHID Garglatelet mean volume (Bld) [Entitic vol]9.7 fL Normal8.1-13.5Ohio Valley HospitalComment on above:Performed By: #### CBC, LACTIC #### [address] [address] Curtain Stitcher: Dioni Merlos MDPlatelets (Bld) [#/Vol]384 10*3/xAXeyyqf818-169 [facility] HospitalComment on above:Performed By: #### CBC, LACTIC #### [address] [address] Curtain Stitcher: THEODORE GargBC (Bld) [#/Vol]5.08 10*6/uLNormal3.95-5.11 [facility] HospitalComment on above:Performed By: #### CBC, LACTIC #### [address] [address] Curtain Stitcher: FADY Garg morphology finding Nom (Bld)ANISOCYTOSIS PRESENTNormalOhio Valley HospitalComment on above:Performed By: #### CBC, LACTIC #### [address] [address] Curtain Stitcher: HONG GargBC (Bld) [#/Vol]8.8 10*3/uLNormal3.5-11.3MFremont Memorial HospitalComment on above:Performed By: #### CBC, LACTIC #### [address] [address] Curtain Stitcher: ANGIE Gargmarcelo 24-29-1018Grukxzr [Mass/Vol]3.7 g/dL3.5 - 5.2 g/dLBon [facility] HospitalAlbumin/Globulin [Mass ratio]1.1 {ratio}1.0 - 2.5Bon [facility] Medical CenterLight Sciences OncologyALP [Catalytic activity/Vol]94 U/L35 - 104 U/LBon [facility] Medical CenterMyAGENT St[facility] CampusALT [Catalytic activity/Vol]9 U/LLow10 - 35 U/LBon [facility] Medical CenterMyAGENT [facility] CampusAnion gap [Moles/Vol]13 mmol/L9 - 16 mmol/LBon [facility] Medical CenterLight Sciences Oncology AST [Catalytic activity/Vol]19 U/L10 - 35 U/LBon [facility] Medical CenterMyAGENT St[facility], Iront[facility] CampusComment on above:Specimen hemolysis has exceeded the interference as defined by Luis. Value may be falsely increased. Suggest recollection if clinically indicated. Bilirubin [Mass/Vol]0.3 mg/dL0.0 - 1.2 mg/dLBon [facility] Medical CenterLight Sciences OncologyCalcium [Mass/Vol]9.5 mg/dL8.6 - 10.4 mg/dLBon [facility] Medical CenterLight Sciences OncologyChloride [Moles/Vol] 98 mmol/L98 - 107 mmol/LBon [facility] Medical CenterLight Sciences OncologyCO2 [Moles/Vol]26 mmol/L20 - 31 mmol/LBon [facility] CenterLight Sciences OncologyCreatinine [Mass/Vol]0.5 mg/dLLow0.6 - 0.9 mg/dL Bon [facility] CenterLight Sciences OncologyEst, Glom Filt Rate- PINFBon [facility] Medical CenterLight Sciences OncologyComment on above: These results are not intended [...] therapy that affects renal tubular secretion. Glucose [Mass/Vol]104 mg/eJRndg50 - 99 mg/dLBon [facility] Interpretation and review of laboratory resultsAbnormalBon [facility] Data3Sixty Potassium [Moles/Vol]3.5 mmol/LLow3.7 - 5.3 mmol/LBon [facility] Comment on above:Specimen hemolysis has exceeded the interference as defined by Luis. Value may be falsely increased. Suggest recollection if clinically indicated. Protein [Mass/Vol]7.1 g/dL6.6 - 8.7 g/dLBon Secours Mercy HealthSodium [Moles/Vol]137 mmol/L136 - 145 mmol/LBon [facility] HealthUrea nitrogen [Mass/Vol]6 mg/dL6 - 20 mg/dLBon [facility] HealthCT ABDOMEN PELVIS W IV CONTRASTon [id number] ABDOMEN PELVIS W IV CONTRASTEXAMINATION: CT OF THE ABDOMEN AND PELVIS WITH [...] Signed by: Enrike Rodriges MD 07/19/24 Final resultNormalOhio Valley HospitalCT Abdomen and Pelvis W contrast Bette [id number] dilated small bowel upstream from a long segment small bowel stricture with wall thickening and perienteric inflammatory change. Findings consistent with partial obstruction There are several interloop fluid collections as described likely representing abscesses. Moderate volume of free fluid also noted in the pelvis. [facility] RIS CONSOLIDATEDEXAMINATION: CT OF THE ABDOMEN AND PELVIS WITH [...] Tissues: No acute osseus abnormality is identified. MHEnrike Riley MD - 07/19/2024 EXAMINATION: CT OF THE [...] free fluid also noted in the pelvis. [facility] HospitalRadiology Study observation (narrative)[facility] HospitalCoSchedule [facility] Abdomen and Pelvis W contrast IVOrdered By: Enrike Rodriegs on 07-19-2024 Miguel [facility] Work Phone: Comp Metabolic Profon 83-04-1076Asaiuvk [Mass/Vol]3.7 g/dLNormal3.5-5.2MFremont Memorial HospitalComment on above:Performed By: #### CBC, LACTIC #### [facility] [address] [place] [address] Curtain Stitcher: Dioni Merlos MDAlbumin/Glob Ratio1.7Zsqpru4.0-2.5[facility] HospitalComment on above:Performed By: #### CBC, LACTIC #### [facility] [address] [place] [address] Curtain Stitcher: Dioni Merlos MDAlkaline Phos94 U/XImedeu30-950XazhyOhio Valley HospitalComment on above:Performed By: #### CBC, LACTIC #### [facility] [address] [place] [address] Curtain Stitcher: Dioni Merlos MDALT [Catalytic activity/Vol]9 U/HQuf32-24ColmqOhio Valley HospitalComment on above:Performed By: #### CBC, LACTIC #### [facility] [address] [place] [address] Curtain Stitcher: Dioni Merlos MDAnion gap [Moles/Vol]13 mmol/LNormal9-16[facility] HospitalComment on above:Performed By: #### CBC, LACTIC #### [facility] [address] [place] [address] Curtain Stitcher: Dioni Merlos MDAST [Catalytic activity/Vol]19 U/KTzfrjw92-08 [facility] HospitalComment on above:Result Comment: Specimen hemolysis has exceeded the interference as defined by Luis. Value may be falsely increased. Suggest recollection if clinically indicated.Performed By: #### CBC, LACTIC #### [facility] [address] [place] [address] Curtain Stitcher: Dioni Merlos MDBilirubin [Mass/Vol]0.3 mg/dLNormal0.0-1.2MFremont Memorial HospitalComment on above:Performed By: #### CBC, LACTIC #### [facility] [address] [place] [address] Curtain Stitcher: ANGIE Gargalcium [Mass/Vol]9.5 mg/dLNormal8.6-10.4[facility] HospitalComment on above:Performed By: #### CBC, LACTIC #### [facility] [address] [place] [address] Curtain Stitcher: ANGIE Garghloride [Moles/Vol]98 mmol/HLztxjl85-729NkqwdOhio Valley HospitalComment on above:Performed By: #### CBC, LACTIC #### [facility] [address] [place] [address] Curtain Stitcher: Dioni Merlos MDCO2 [Moles/Vol]26 mmol/KTsgcjh05-08LmiejOhio Valley HospitalComment on above:Performed By: #### CBC, LACTIC #### [facility] [address] [place] [address] Curtain Stitcher: ANGIE Gargreatinine [Mass/Vol]0.5 mg/dLLow0.6-0.9[facility] HospitalComment on above:Performed By: #### CBC, LACTIC #### [facility] [address] [place] [address] Curtain Stitcher: Dioni Merlos MDGFR/1.73 sq M.predicted among non-blacks MDRD (S/P/Bld) [Vol rate/Area]mL/min/{1.73_m2}Normal>60[facility] HospitalComment on above:Result Comment: These results are not intended for [...] or following therapy that affects renal tubular secretion.Performed By: #### CBC, LACTIC #### [facility] [address] [place] [address] Curtain Stitcher: Dioni Merlos MDGlucose [Mass/Vol]104 mg/xWXsvi34-14VufapFremont Memorial HospitalComment on above:Performed By: #### CBC, LACTIC #### [facility] [address] [place] [address] Curtain Stitcher: RACHID Gargotassium [Moles/Vol]3.5 mmol/LLow3.7-5.3MFremont Memorial HospitalComment on above:Result Comment: Specimen hemolysis has exceeded the interference as defined by Luis. Value may be falsely increased. Suggest recollection if clinically indicated.Performed By: #### CBC, LACTIC #### [facility] [address] [place] [address] Curtain Stitcher: Dioni Merlos MDProtein [Mass/Vol]7.1 g/dLNormal6.6-8.7[facility] HospitalComment on above:Performed By: #### CBC, LACTIC #### [facility] [address] [place] [address] Curtain Stitcher: Dioni Merlos MDSodium [Moles/Vol]137 mmol/DQqexws213-094RruhsOhio Valley HospitalComment on above:Performed By: #### CBC, LACTIC #### [facility] [address] [place] [address] Curtain Stitcher: Dioni Merlos MDUrea nitrogen [Mass/Vol]6 mg/dLNormal6-20[facility] HospitalComment on above:Performed By: #### CBC, LACTIC #### [facility] [address] [place] [address] Curtain Stitcher: Dioni Merlos MDHCG Qualitative, Serumon [id number] ( test) QlNegativeNEGATIVEBon [facility] HospitalComment on above: Specimens with hCG levels near the threshold of the test (25 mIU/mL) may give a negative or indeterminate result. In such cases, another test should be performed with a new specimen in 48-72 hours. If early is suspected clinically in this setting, correlation with quantitative serum b-hCG level is suggested. [facility] CenterCoSchedule [facility] has confirmed the use of plasma for this test. This has not been cleared or approved by the U.S. Food and Drug Administration. The FDA has determined that such clearance is not necessary. Bon [facility] HospitalHCG Screen, Bloodon [id number] Screen, BloodNegative NormalNEGMercy Rancho Springs Medical CenterComment on above:Result Comment: Specimens with hCG levels near the threshold of the test (25 mIU/mL) may give a negative or indeterminate result. In such cases, another test should be performed with a new specimen in 48-72 hours. If early is suspected clinically in this setting, correlation with quantitative serum b-hCG level is suggested. [facility] has confirmed the use of plasma for this test. This has not been cleared or approved by the U.S. Food and Drug Administration. The FDA has determined that such clearance is not necessary.Performed By: #### CBC, LACTIC #### [facility] [address] [place] [address] [address] Curtain Stitcher: Dioni Merlos MDLactic Acidon 91-91-7149Vnpzaw Acid, Whole Blood 1.0 mmol/L0.7 - 2.1 mmol/LBon Black Hills Surgery CenterLactic Acid,Whole Bl1.0 mmol/LNormal0.7-2.1Mer[facility] Rancho Springs Medical CenterComment on above:Performed By: #### CRP, HCG, LIP, TROPI, CDP, CP #### [facility] [place] [address] Curtain Stitcher: Dioni Merlos MDLipaseon 82-56-2135Slewuw [Catalytic activity/Vol]17 U/L13 - 60 U/LBon [facility] HealthLipase [Catalytic activity/Vol]17 U/MPggwaj45-14UbfvqOhio Valley HospitalComment on above: Performed By: #### CBC, LACTIC #### [facility] [address] [place], [place] [id number] Curtain Stitcher: JAN Gargicroscopic Urinalysison 49-36-2285Pdxgholq LM Ql (Urine sed)NoneNoneBon SecWomen[facility] and Children[facility] Hospital HealthCasts LM.LPF (Urine sed) [#/Area] 10 TO 20 HYALINE Reference range defined for non-centrifuged specimen.Bon [facility] HealthEpithelial cells LM.HPF (Urine sed) [#/Area]10 TO 20Bon SecSelect [facility] Hospital - TrumbullMucus Ql (Urine sed)1+Bon [facility] HospitalRBC LM.HPF (Urine sed) [#/Area]5 TO 10Bon [facility] North HospitalComment on above:Reference range defined for non-centrifuged specimen.WBC LM.HPF (Urine sed) [#/Area]5 TO 10Bon SecSt. Joseph's [facility] Medical Center– MilwaukeeNo Panel Informationon 31-98-6796Dce [facility] North HospitalSedimentation Rateon 46-90-2971YMC Photometric method (Bld) [Velocity]15Bon [facility] Sedimentation Rate15 mm/HrNormal0-20Ohio Valley HospitalComment on above:Performed By: #### CBC, LACTIC #### [facility] [place], [place] [id number] Curtain Stitcher: Alfredo Garg PCR Batteryon 40-51-9700Lfcahcwo Description.FECESNormalMerKindred HospitalComment on above: Performed By: #### CRP #### [facility] [address] [place] [address] [phone] Curtain Stitcher: ALICJA Garg w/Reflex Cultureon 85-42-9422Hykaxunqy, SemiQt,UrNegativeNormalNEGOhio Valley HospitalComment on above: Performed By: #### CRP, HCG, LIP, TROPI, CDP, CP #### [facility] [address] [place] [address] Curtain Stitcher: Maty Garg UrineTRACEAbnormalNEGMerKindred HospitalComment on above:Performed By: #### CRP, HCG, LIP, TROPI, CDP, CP #### [facility] [address] [place] [address] Curtain Stitcher: Dioni Merlos [facility] YUKONlarity (U)CloudyAbnormalCLEARMercy Rancho Springs Medical CenterComment on above:Performed By: #### CRP, HCG, LIP, TROPI, CDP, CP #### [facility] [address] [place] [address] Curtain Stitcher: ANGIE Gargolor (U)YellowNormalYELMerKindred HospitalComment on above:Performed By: #### CRP, HCG, LIP, TROPI, CDP, CP #### [facility] [address] [place] [address] Curtain Stitcher: Dioni Merlos MDGlucose Ql (U)NegativeNormalNEGMerKindred HospitalComment on above:Performed By: #### CRP, HCG, LIP, TROPI, CDP, CP #### [address] [address] Curtain Stitcher: Dioni Merlos MDKetones Ql (U)MODERATEAbnormalNEGMerKindred HospitalComment on above:Performed By: #### CRP, HCG, LIP, TROPI, CDP, CP #### [facility] [address] [place] [address] Curtain Stitcher: Dioni Merlos MDLeukocyte esterase Test strip Ql (U)Negative NormalNEGOhio Valley HospitalComment on above:Performed By: #### CRP, HCG, LIP, TROPI, CDP, CP #### [facility] [address] [place] [address] Curtain Stitcher: Deena Gargite,UrNegativeNormalNEGOhio Valley HospitalComment on above:Performed By: #### CRP, HCG, LIP, TROPI, CDP, CP #### [facility] [address] [place] [address] Curtain Stitcher: Dioni Merlos [facility],Ur6.8Ctqcta0.0-8.0Ohio Valley HospitalComment on above:Performed By: #### CRP, HCG, LIP, TROPI, CDP, CP #### [facility] [address] [place] [address] Curtain Stitcher: RACHID Gargrotein Ql (U)TRACEAbnormalFayette County Memorial HospitalComment on above:Performed By: #### CRP, HCG, LIP, TROPI, CDP, CP #### [facility] [address] [place] [address] Curtain Stitcher: CASS Gargpec. Plummer,Ur1.630Yniqbn2.005-1.030Ohio Valley HospitalComment on above:Performed By: #### CRP, HCG, LIP, TROPI, CDP, CP #### [facility] [address] [place] [address] Curtain Stitcher: Dyan Gargbilinogen,UrNormalNormal0.0-1.0Ohio Valley HospitalComment on above:Performed By: #### CRP, HCG, LIP, TROPI, CDP, CP #### [facility] [address] [place] [address] Curtain Stitcher: Dioni Merlos MDUrinalysis with Reflex to Cultureon 07-19-2024 Bilirubin Ql (U)NegativeNEGATIVEBon [facility] HealthClarity (U)Cloudy AbnormalClearBon [facility] HealthColor (U)YellowYellowBon Secours [facility]cy HealthGlucose Test strip (U) [Mass/Vol]NegativeNEGATIVE mg/dLBon Secours [facility] HealthHemoglobin Auto test strip Ql (U)TRACEAbnormalNEGATIVEBon Secours [facility] HealthInterpretation and review of laboratory resultsAbnormalBon Secours [facility] HealthKetones (U) [Mass/Vol]MODERATEAbnormalNEGATIVE mg/dLBon [facility]ours [facility] HealthLeukocyte esterase Test strip Ql (U)NegativeNEGATIVEBon Secours [facility] HealthNitrite Ql (U)NegativeNEGATIVEBon Secours [facility] HealthpH (U)6.5 [pH]5.0 - 8.0[facility] HealthProtein (U) [Mass/Vol]TRACEAbnormalNEGATIVE mg/dLBon Secours [facility]cy HealthSpecific gravity (U) [Rel density]1.0161.005 - 1.030Bon Secjaya [facility] Centery HealthUrobilinogen Qn (U)Normal0.0 - 1.0 EU/dLBon Secours [facility] Centery HealthBon Secjaya [facility] Centery HealthUrinalysis,Microon 37-64-9223MymkrsumOoraDjchoh NONEOhio Valley HospitalComment on above:Performed By: #### CRP, HCG, LIP, TROPI, CDP, CP #### [facility] [address] [place] [address] Curtain Stitcher: Dioni Merlos HYWhvhu91 TO 20 HYALINENormal0-8Ohio Valley HospitalComment on above:Result Comment: Reference range defined for non- centrifuged specimen.Performed By: #### CRP, HCG, LIP, TROPI, CDP, CP #### [facility] [address] [place] [address] [phone] Curtain Stitcher: Dioni Merlos MDEpithelial cells LM Ql (Urine sed)10 TO 20Normal 0-5Ohio Valley HospitalComment on above:Performed By: #### CRP, HCG, LIP, TROPI, CDP, CP #### [facility] [address] [place] [address] [phone] Curtain Stitcher: JAN Gargucus Strands1+NormalOhio Valley HospitalComment on above:Performed By: #### CRP, HCG, LIP, TROPI, CDP, CP #### [facility] [address] [place] [address] Curtain Stitcher: Apoorva Garg RBC's5 TO 43Wmfzum6-4OquwoOhio Valley HospitalComment on above:Result Comment: Reference range defined for non- centrifuged specimen.Performed By: #### CRP, HCG, LIP, TROPI, CDP, CP #### [facility] Center[facility] [address] [place] [address] Curtain Stitcher: Apoorva Garg WBC's5 TO 38Shvgyj0-8XeszdOhio Valley HospitalComment on above:Performed By: #### CRP, HCG, LIP, TROPI, CDP, CP #### [facility] CenterCoSchedule [address] [address] Curtain Stitcher: Dioni Merlos MDHCG,,Ur-POCon 06-05-2024 HCG,,Ur-POCNegativeNormalNEGWilson Memorial HospitalComment on above: Result Comment: HCG screen is sensitive to 25 mIU/mL. However this test may grape picker lower levels of HCG. If further evaluation is needed please request quantitative HCG.Performed By: #### UHCGE #### [facility] [address] [place] [address] Curtain Stitcher: Wallace Napoles DOPOCT HCG, Prenancy, Uron 55-77-2097Qivz HCG ( test) Ql (U)NegativeNEGATIVEBon [facility] HospitalComup health system on above: HCG screen is sensitive to 25 mIU/mL. However this test may grape picker lower levels of HCG. If further evaluation is needed please request quantitative HCG. [facility] PCR Batteryon 52-11-5906Giionlqdzesza sp PCR NEGATIVE: No Campylobacter spp. (jejuni or coli) DNA DetectedNoalCAMNEGOhio Valley HospitalComment on above:Performed By: #### CBC, LACTIC #### [facility] [address] [place] [address] Curtain Stitcher: ZORAN Garg coli enterotox PCRNEGATIVE: No Enterotoxigenic E. coli (ETEC) Heat-labile and heat-stable (LT/ST)NormalEECNEGOhio Valley HospitalComment on above:Result Comment: DNA DetectedPerformed By: #### CBC, LACTIC #### [facility] [address] [place] [address] Curtain Stitcher: RACHID Garglesiomonas sp PCRNegativeNoecu health edgecombe hospitalPLEFayette County Memorial HospitalComment on above:Performed By: #### CBC, LACTIC #### [facility] [address] [place] [address] Curtain Stitcher: CASS Gargalmonella sp PCRNegativeNoGeorgetown Behavioral HospitalNEGOhio Valley HospitalComment on above:Performed By: #### CBC, LACTIC #### [facility] [address] [place] [address] Curtain Stitcher: Cecilio Garggatoxin gene PCRNegativeNoCone Health Moses Cone HospitalTXNEGOhio Valley HospitalComment on above:Performed By: #### CBC, LACTIC #### [facility] [address] [place] [address] Curtain Stitcher: CASS Garghigella sp PCRNegativeNoFormerly Morehead Memorial HospitalNEGOhio Valley HospitalComment on above:Performed By: #### CBC, LACTIC #### [facility] [address] [place] [address] Curtain Stitcher: Lila Gargbrio sp PCRNEGATIVE: No Vibrio (V. vulnificus, V, parahaemolyticus and V. cholerae) DNANormalVIBNEGOhio Valley HospitalComment on above:Result Comment: DetectedPerformed By: #### CBC, LACTIC #### [facility] [address] [place] [address] [phone] Curtain Stitcher: Eder Garg gene PCRNegativeNormalYERNEGOhio Valley HospitalComment on above:Performed By: #### CBC, LACTIC #### [facility] [address] [place] [address] [phone] Curtain Stitcher: Dioni Merlos MDCalprotectin Stoolon 08-35-5748Eqaquvpowgjj, Bsxso4030 ug/gHighNINF - 49 ug/gBon [facility] HospitalComup health system on above:(NOTE) REFERENCE INTERVAL: Calprotectin, Fecal by Immunoassay Less than 50 ug/g.........Normal 50-120 ug/g...............Borderline elevated, test should be re-evaluated in 4-6 weeks. 121 ug/g or greater.......Elevated Performed By: [employer] [address] [place] [address] Disk Recordist: Hugo Ramsey MD, PhD CLIA Number: [id number] Interpretation and review of laboratory resultsAbnormalBon [facility] Bon [facility] North HospitalCalprotectin, Fecalon 30-36-0964Ggbgwishgxrl, Pvdna4970 ug/gHigh<=49Ohio Valley HospitalComup health system on above:Result Comment: (NOTE) REFERENCE INTERVAL: Calprotectin, Fecal by Immunoassay Less than 50 ug/g.........Normal 50-120 ug/g...............Borderline elevated, test should be re-evaluated in 4-6 weeks. 121 ug/g or greater.......Elevated Performed By: [employer] [address] [place] [address] Disk Recordist: Hugo Ramsey MD, PhD CLIA Number: [id number] By: #### CRP, HCG, LIP, TROPI, CDP, CP #### [facility] [place], [place] [phone] Curtain Stitcher: Dioni Merlos MDB12/Folate Panelon 35-19-8111Sajxkbyhe (Vitamin B12) [Mass/Vol]176 pg/kSOjh697-2124LykwhOhio Valley HospitalComment on above:Performed By: #### LACTIC #### [facility] [address] [place] [address] Curtain Stitcher: Lorraine Garg Acid17.7 ng/mLNormal4.8-24.2Mer[facility] Springs Medical CenterComment on above:Performed By: #### LACTIC #### [facility] [address] [place] [address] Curtain Stitcher: ANGIE Garg DIFF TOXIN/ANTIGENon 05-08-2024. difficile glutamate dehydrogenase and toxins A+B IA.rapid Ql (Stl)NegativeNEGATIVEBon Secours Richmond Community HospitalComment on above:No C. difficile antigen and Toxin Detected. Specimen Description.FECESBon [facility] CenterC diff Ag + Toxinon 05-08-2024 diff Ag + ToxinNegativeNormalNEGOhio Valley HospitalComment on above:Result Comment: No C. difficile antigen and Toxin Detected.Performed By: #### LACTIC #### [facility] CenterHel[facility] [address] [place] [address] Curtain Stitcher: ANGIE Garg with Auto Differentialon 88-87-4761Lponnwzox (Bld) [#/Vol]0.03 10*3/uLBon Secours Richmond Community HospitalBasophils/100 WBC (Bld)0 %0 - 2 %[facility] HospitalEosinophils (Bld) [#/Vol]0.14 10*3/uLBon [facility] HospitalEosinophils/100 WBC (Bld)2 %1 - 4 %[facility] Erythrocyte distribution width (RBC) [Ratio]14.3 %11.8 - 14.4 %[facility] HospitalHematocrit (Bld) [Volume fraction]29.4 %Low36.3 - 47.1 %[facility] HospitalHemoglobin (Bld) [Mass/Vol]8.7 g/dLLow11.9 - 15.1 g/dLBon [facility] HospitalImmature granulocytes (Bld) [#/Vol]0.04 10*3/uLBon [facility] Immature granulocytes/100 WBC (Bld)1 %Bzkx4Cxq [facility] Interpretation and review of laboratory resultsAbnormalBon [facility] Lymphocytes/100 WBC (Bld)15 %Low24 - 43 %[facility] HospitalLymphocytes/100 WBC (Bld)1.13 %[facility] CenterH (RBC) [Entitic mass]26.3 pg25.2 - 33.5 pgBon Genesis HospitalHC (RBC) [Mass/Vol]29.6 g/dL28.4 - 34.8 g/dLBon Genesis HospitalV (RBC) [Entitic vol]88.8 fL82.6 - 102.9 fLBon [facility] HospitalMonocytes/100 WBC (Bld)6 %3 - 12 %[facility] Monocytes/100 WBC (Bld)0.49 %[facility] HospitalNeutrophils/100 WBC (Bld)76 %High36 - 65 %[facility] HospitalNucleated RBC/100 WBC (Bld) [Ratio]0.0 % 0.0 per 100 WBCBon [facility] North HospitalPlatelet mean volume (Bld) [Entitic vol] 9.7 fL8.1 - 13.5 fLBon [facility] North HospitalPlatelets (Bld) [#/Vol]337 10*3/uLBon [facility] HospitalRBC (Bld) [#/Vol]3.31 10*6/uLLow3.95 - 5.11 m/uLBon [facility] HospitalSegmented neutrophils/100 WBC (Bld)5.81 %[facility] WBC other (Bld) [#/Vol]7.6Bon SecSt. Joseph's Regional Medical Center– MilwaukeeCBC with Diffon 69-95-6506Dwx. Basophil0.03 k/uLNormal0.00-0.20Ohio Valley HospitalComment on above:Performed By: #### LACTIC #### [facility] [address] [place] [address] Curtain Stitcher: MDAbs. BritanyImm.Granulocyte0.04 k/uLNormal0.00-0.30Ohio Valley HospitalComment on above:Performed By: #### LACTIC #### [address] [address] Curtain Stitcher: MDAbs. BritanyNeutrophil (Seg)5.81 k/uLNormal1.50-8.10 [facility] Valley HospitalComment on above:Performed By: #### LACTIC #### [address] [address] Curtain Stitcher: Dioni Merlos MDBasophils/100 WBC (Bld)0 %Normal0-2MFremont Memorial HospitalComment on above:Performed By: #### LACTIC #### [address] [address] Curtain Stitcher: Dioni Merlos MDEosinophils (Bld) [#/Vol]0.14 10*3/uLNormal 0.00-0.44Ohio Valley HospitalComment on above:Performed By: #### LACTIC #### [address] [address] Curtain Stitcher: Dioni Merlos MDEosinophils/100 WBC (Bld)2 %Normal1-4Ohio Valley HospitalComment on above:Performed By: #### LACTIC #### [address] [address] Curtain Stitcher: Dioni Merlos MDErythrocyte distribution width (RBC) [Ratio]14.3 %Cjgyzh97.8-14.4Ohio Valley HospitalComment on above:Performed By: #### LACTIC #### [address] [address] Curtain Stitcher: Dioni Merlos MDHematocrit (Bld) [Volume fraction]29.4 %Low 36.3-47.1MFremont Memorial HospitalComment on above:Performed By: #### LACTIC #### [address] [address] Curtain Stitcher: Dioni Merlos MDHemoglobin (Bld) [Mass/Vol]8.7 g/dLLow11.9-15.1 [facility] Valley HospitalComment on above:Performed By: #### LACTIC #### [address] [address] Curtain Stitcher: Johanny Gargmature granulocytes/100 WBC (Bld)1 %Bsjb2OkqpzOhio Valley HospitalComment on above:Performed By: #### LACTIC #### [place] [address] Curtain Stitcher: Dioni Merlos MDLymphocytes (Bld) [#/Vol]1.13 10*3/uLNormal 1.10-3.70Ohio Valley HospitalComment on above:Performed By: #### LACTIC #### [address] [address] Curtain Stitcher: Dereck Gargmphocytes/100 WBC (Bld)15 %Yrn44-60JkcdaOhio Valley HospitalComment on above:Performed By: #### LACTIC #### [place] [address] Curtain Stitcher: JAN GargCH (RBC) [Entitic mass]26.3 mwMvamkl69.2-33.5 Ohio Valley HospitalComment on above:Performed By: #### LACTIC #### [address] [address] Curtain Stitcher: JAN GargCHC (RBC) [Mass/Vol]29.6 g/cQYkkhdi24.4-34.8 [facility] HospitalComment on above:Performed By: #### LACTIC #### [address] [address] Curtain Stitcher: JAN GargCV (RBC) [Entitic vol]88.8 fGOmsewz55.6-102.9 [facility] HospitalComment on above:Performed By: #### LACTIC #### [address] [address] Curtain Stitcher: JAN Gargonocytes (Bld) [#/Vol]0.49 10*3/uLNormal 0.10-1.20Ohio Valley HospitalComment on above:Performed By: #### LACTIC #### [address] [address] Curtain Stitcher: JAN Gargonocytes/100 WBC (Bld)6 %Normal3-12Ohio Valley HospitalComment on above:Performed By: #### LACTIC #### [address] [address] Curtain Stitcher: Karishma Gargophil (Seg)76 %Feie92-66MabgyOhio Valley HospitalComment on above:Performed By: #### LACTIC #### [address] [address] Curtain Stitcher: Dioni Merlos MDNRBC Automated0.0 per 100 WBCNormal0.0Ohio Valley HospitalComment on above:Performed By: #### LACTIC #### [address] [address] Curtain Stitcher: Dioni Merlos MDPlatelet mean volume (Bld) [Entitic vol]9.7 fL Normal8.1-13.5Ohio Valley HospitalComment on above:Performed By: #### LACTIC #### [place] [address] Curtain Stitcher: Lionel Garg ([facility]) [#/Vol]337 10*3/bCApkhha724-293 [facility] HospitalComment on above:Performed By: #### LACTIC #### [address] [address] Curtain Stitcher: THEODORE GargBC (d) [#/Vol]3.31 10*6/uLLow3.95-5.11Ohio Valley HospitalComment on above:Performed By: #### LACTIC #### [address] [address] Curtain Stitcher: GIANNA Garg (d) [#/Vol]7.6 10*3/uLNormal3.5-11.3MFremont Memorial HospitalComment on above:Performed By: #### LACTIC #### [address] [address] Curtain Stitcher: Dioni Merlos MDFerritinon 74-51-9958Lsmttwxi [Mass/Vol]163 ng/iYAecl19 - 150 ng/mLBon Secours Richmond Community HospitalComment on above: FERRITIN Reference Ranges: Adult Males 20 - 60 years: 30 - 400 ng/mL Adult females 17 - 60 years: 13 - 150 ng/mL Adults greater than 60 years: no established reference range Pediatrics: no established reference range Ferritin [Mass/Vol]163 ng/uBShbk00-606LgbwxOhio Valley HospitalComment on above:Result Comment: FERRITIN Reference Ranges: Adult Males 20 - 60 years: 30 - 400 ng/mL Adult females 17 - 60 years: 13 - 150 ng/mL Adults greater than 60 years: no established reference range Pediatrics: no established reference rangePerformed By: #### LACTIC #### [address] [address] Curtain Stitcher: Dioni Merlos MDIroandria Binding Cap.on 05-08-2024% Fe Npemcbduyg25 %Wts44-39OgsgkKindred HospitalComment on above:Performed By: #### LACTIC #### [facility] [address] [place] [address] Curtain Stitcher: Micheal Garg [Mass/Vol]21 ug/lEJbm24-746CmfphOhio Valley HospitalComment on above:Performed By: #### LACTIC #### [facility] [address] [place] [address] Curtain Stitcher: Dioni Merlos MDTotal Fe Binding Vgr474 ug/sWVxp636-927VdymoOhio Valley HospitalComment on above:Performed By: #### LACTIC #### [facility] [address] [place] [address] Curtain Stitcher: Dioni Merlos MDUnbound Fe Bind Dup305 ug/oCTzgpsm424-499GlshmOhio Valley HospitalComment on above:Performed By: #### LACTIC #### [facility] [address] [place] [address] Curtain Stitcher: Micheal Garg and TIBCon 85-32-1761Vsha [Mass/Vol]21 ug/dLLow37 - 145 ug/dLBon [facility] Medical Centern binding capacity [Mass/Vol] 179 ug/fKFry316 - 450 ug/dLBon [facility] Medical Centern saturation [Mass fraction]12 %Low20 - 55 %Bon [facility] HospitalUIBC158 ug/dL112 - 347 ug/dLBon [facility] HospitalNo Panel Informationon 25-66-9632Jrwgcvsndtdyht and review of laboratory resultsAbnormalMartinsville Memorial Hospital Vitamin B12 & Folateon 93-68-5845Seopcpmcb (Vitamin B12) [Mass/Vol]176 pg/mLLow 232 - 1245 pg/mLBon Secours Richmond Community HospitalFolate [Mass/Vol]17.7 ng/mL4.8 - 24.2 ng/mLBon Secours Richmond Community HospitalInterpretation and review of laboratory results AbnormalBon [facility] CenterBlood Occult Stool Diagnosticon 10-50-4886Widb, Stool #[id number] [facility] Hemoglobin.gastrointestinal spec 1 Ql (Stl)NegativeNEGATIVEBon [facility] HospitalTime, Stool #[id number] SecSt. Joseph's Regional Medical Center– MilwaukeeC diff Ag + Toxinon 31-48-4579Flouuilz Description.FECESNormalMercy Rancho Springs Medical CenterComment on above:Performed By: #### LACTIC #### [facility] [address] [place], [place] [id number] Curtain Stitcher: Dioni Merlos [facility] with Auto Differentialon 40-24-3169Vpsrnszjt (Bld) [#/Vol]0.03 10*3/uLBon [facility] HospitalBasophils/100 WBC (Bld)0 %0 - 2 %[facility] HospitalEosinophils (Bld) [#/Vol]0.08 10*3/uLBon [facility] HospitalEosinophils/100 WBC (Bld)1 %1 - 4 %[facility] Erythrocyte distribution width (RBC) [Ratio]14.1 %11.8 - 14.4 %[facility] HospitalHematocrit (Bld) [Volume fraction]34.7 %Low36.3 - 47.1 %[facility] HospitalHemoglobin (Bld) [Mass/Vol]10.4 g/dLLow11.9 - 15.1 g/dLBon [facility] HospitalImmature granulocytes (Bld) [#/Vol]0.07 10*3/uLBon [facility] Immature granulocytes/100 WBC (Bld)1 %Ycuw4Dcr [facility] Interpretation and review of laboratory resultsAbnormalBon [facility] Lymphocytes/100 WBC (Bld)12 %Low24 - 43 %[facility] HospitalLymphocytes/100 WBC (Bld)1.04 %LowBon Genesis HospitalH (RBC) [Entitic mass]26.9 pg25.2 - 33.5 pgBon Genesis HospitalHC (RBC) [Mass/Vol]30.0 g/dL28.4 - 34.8 g/dLBon Secours Mercy HealthMCV (RBC) [Entitic vol]89.9 fL82.6 - 102.9 fLBon Secours Richmond Community HospitalMonocytes/100 WBC (Bld)5 %3 - 12 %[facility] Monocytes/100 WBC (Bld)0.38 %[facility] HospitalNeutrophils/100 WBC (Bld)81 %High36 - 65 %Bon [facility] HospitalNucleated RBC/100 WBC (Bld) [Ratio]0.0 % 0.0 per 100 WBCBon [facility] North HospitalPlatelet mean volume (Bld) [Entitic vol] 9.5 fL8.1 - 13.5 fLBon [facility] North HospitalPlatelets (Bld) [#/Vol]409 10*3/uLBon SecSelect Medical Specialty Hospital - TrumbullRBC (Bld) [#/Vol]3.86 10*6/uLLow3.95 - 5.11 m/uLBon [facility] HospitalSegmented neutrophils/100 WBC (Bld)6.83 %Bon [facility] WBC other (Bld) [#/Vol]8.4Bon SecSelect Medical Specialty Hospital - TrumbullBon [facility] North HospitalCBC with Diffon 52-05-5323Utz. Basophil0.03 k/uLNormal0.00-0.20[facility] HospitalComment on above:Performed By: #### LACTIC #### [facility] [address] [place] [address] Curtain Stitcher: MDAbs. BritanyImm.Granulocyte0.07 k/uLNormal0.00-0.30[facility] HospitalComment on above:Performed By: #### LACTIC #### [facility] [address] [place] [address] Curtain Stitcher: MDAbs. BritanyNeutrophil (Seg)6.83 k/uLNormal1.50-8.10 [facility] HospitalComment on above:Performed By: #### LACTIC #### [facility] [address] [place] [address] Curtain Stitcher: Dioni Madoff, MDBasophils/100 WBC (Bld)0 %Normal0-2MFremont Memorial HospitalComment on above:Performed By: #### LACTIC #### [address] [address] Curtain Stitcher: Dioni Merlos MDEosinophils (Bld) [#/Vol]0.08 10*3/uLNormal 0.00-0.44[facility] HospitalComment on above:Performed By: #### LACTIC #### [address] [address] Curtain Stitcher: Dioni Merlos MDEosinophils/100 WBC (Bld)1 %Normal1-4Ohio Valley HospitalComment on above:Performed By: #### LACTIC #### [place] [address] Curtain Stitcher: Dioni Merlos MDErythrocyte distribution width (RBC) [Ratio]14.1 %Ajlynn88.8-14.4Ohio Valley HospitalComment on above:Performed By: #### LACTIC #### [place] [address] Curtain Stitcher: Dioni Merlos MDHematocrit (Bld) [Volume fraction]34.7 %Low 36.3-47.1MFremont Memorial HospitalComment on above:Performed By: #### LACTIC #### [address] [address] Curtain Stitcher: Dioni Merlos MDHemoglobin (Bld) [Mass/Vol]10.4 g/dLLow11.9-15.1 [facility] HospitalComment on above:Performed By: #### LACTIC #### [address] [address] Curtain Stitcher: Dioni Merlos MDImmature granulocytes/100 WBC (Bld)1 %Yqwv0PldpfOhio Valley HospitalComment on above:Performed By: #### LACTIC #### [place] [address] Curtain Stitcher: Dereck Gargmphocytes (Bld) [#/Vol]1.04 10*3/uLLow 1.10-3.70Ohio Valley HospitalComment on above:Performed By: #### LACTIC #### [place] [address] Curtain Stitcher: Melvin Garghocytes/100 WBC (Bld)12 %Iga63-61VlbgeOhio Valley HospitalComment on above:Performed By: #### LACTIC #### [place] [address] Curtain Stitcher: JAN GargCH (RBC) [Entitic mass]26.9 zpPeaina41.2-33.5 [facility] Valley HospitalComment on above:Performed By: #### LACTIC #### [place] [address] Curtain Stitcher: JAN GargCHC (RBC) [Mass/Vol]30.0 g/dKXcejys37.4-34.8 [facility] Valley HospitalComment on above:Performed By: #### LACTIC #### [place] [address] Curtain Stitcher: JAN GargCV (RBC) [Entitic vol]89.9 nXAsaqid11.6-102.9 [facility] HospitalComment on above:Performed By: #### LACTIC #### [place] [address] Curtain Stitcher: JAN Gargonocytes (Bld) [#/Vol]0.38 10*3/uLNormal 0.10-1.20Ohio Valley HospitalComment on above:Performed By: #### LACTIC #### [facility] [address] [place] [address] Curtain Stitcher: JAN Gargonocytes/100 WBC (Bld)5 %Normal3-12Ohio Valley HospitalComment on above:Performed By: #### LACTIC #### [facility] [address] [place] [address] Curtain Stitcher: Karishma Gargophil (Seg)81 %Layy63-24SqbnmOhio Valley HospitalComment on above:Performed By: #### LACTIC #### [address] [address] Curtain Stitcher: GAYATRI Garg Automated0.0 per 100 WBCNormal0.0Ohio Valley HospitalComment on above:Performed By: #### LACTIC #### [address] [address] Curtain Stitcher: Latisha Gargtelet mean volume (Bld) [Entitic vol]9.5 fL Normal8.1-13.5Ohio Valley HospitalComment on above:Performed By: #### LACTIC #### [address] [address] Curtain Stitcher: RACHID Garglatelets (Bld) [#/Vol]409 10*3/bAZrgwjn722-260 [facility] Valley HospitalComment on above:Performed By: #### LACTIC #### [facility] [address] [place] [address] Curtain Stitcher: Dioni Merlos MDRBC (Bld) [#/Vol]3.86 10*6/uLLow3.95-5.11[facility] Valley HospitalComment on above:Performed By: #### LACTIC #### [address] [address] Curtain Stitcher: HONG Garg (Bld) [#/Vol]8.4 10*3/uLNormal3.5-11.3Mer[facility] Rancho Springs Medical CenterComment on above:Performed By: #### LACTIC #### [address] [address] Curtain Stitcher: Dioni Merlos MDCult,Fluidon 50-95-3099Ufbp,FluidSpecimen Description .ASPIRATE Special Requests Site: Body Fluid [...] read back by:WAQAS De Guzman 05/04/24 1750 Report Status FINAL 05/07/2024 SUSCEPTIBILITY Organism SVIR SUE KRISTIN Method HARPER Penicillin <=0.06 SUSCEPTIBLESusceptibleOhio Valley HospitalComment on above:Performed By: #### CBC, LACTIC #### [address] [address] Curtain Stitcher: Dioni Merlos MDOccelena Blood, Fecal 40-57-1688Eyoodq Blood 1 NegativeNormalNEGOhio Valley HospitalComment on above:Performed By: #### CRP, HCG, LIP, TROPI, CDP, CP #### [address] [address] Curtain Stitcher: Shy Gargimeandria 1 Cnhs74999408RfssjpOrfhuOhio Valley HospitalComment on above:Performed By: #### CRP, HCG, LIP, TROPI, CDP, CP #### [facility] [address] [place] [address] Curtain Stitcher: Deepak Garg 1 TimeUNKNOWNNormalOhio Valley HospitalComment on above:Performed By: #### CRP, HCG, LIP, TROPI, CDP, CP #### [facility] [address] [place] [address] Curtain Stitcher: Alfredo Garg PCR Batteryon 63-30-6911Ozryegwc Description.FECESNormalOhio Valley HospitalComment on above: Performed By: #### CBC, LACTIC #### [facility] [address] [place] [address] Curtain Stitcher: Shlomo Garg Metab w/rfx MGon 38-75-1868Fcqqrdn [Mass/Vol]8.8 mg/dLNormal8.6-10.4Ohio Valley HospitalComment on above:Performed By: #### CRP, HCG, LIP, TROPI, CDP, CP #### [facility] [address] [place] [address] Curtain Stitcher: Dioni Merlos MDAnimarcelo gap [Moles/Vol]8 mmol/LLow9-16Ohio Valley HospitalComment on above:Performed By: #### CRP, HCG, LIP, TROPI, CDP, CP #### [facility] [address] [place] [address] Curtain Stitcher: Dioni Merlos MDChloride [Moles/Vol]108 mmol/PSyos53-161FotkpOhio Valley HospitalComment on above:Performed By: #### CRP, HCG, LIP, TROPI, CDP, CP #### [address] [address] Curtain Stitcher: Dioni Merlos MDCO2 [Moles/Vol]24 mmol/QOklmid77-49YuigwOhio Valley HospitalComment on above:Performed By: #### CRP, HCG, LIP, TROPI, CDP, CP #### [facility] [address] [place] [address] Curtain Stitcher: ANGIE Gargreatinine [Mass/Vol]0.5 mg/dLLow0.6-0.9Ohio Valley HospitalComment on above:Performed By: #### CRP, HCG, LIP, TROPI, CDP, CP #### [place] [address] Curtain Stitcher: Dioni Merlos MDGFR/1.73 sq M.predicted among non-blacks MDRD (S/P/Bld) [Vol rate/Area]mL/min/{1.73_m2}Normal>60Ohio Valley HospitalComment on above:Result Comment: These results are not intended for [...] or following therapy that affects renal tubular secretion.Performed By: #### CRP, HCG, LIP, TROPI, CDP, CP #### [facility] [address] [place] [address] Curtain Stitcher: Dioni Merlos MDGlucose [Mass/Vol]99 mg/zLRaoxkr82-46DkpnwFremont Memorial HospitalComment on above:Performed By: #### CRP, HCG, LIP, TROPI, CDP, CP #### [place] [address] Curtain Stitcher: RACHID Gargotassium [Moles/Vol]4.2 mmol/LNormal3.7-5.3 [facility] Valley HospitalComment on above:Performed By: #### CRP, HCG, LIP, TROPI, CDP, CP #### [place] [address] Curtain Stitcher: CASS Gargodium [Moles/Vol]140 mmol/AJaxixc736-634QmzufOhio Valley HospitalComment on above:Performed By: #### CRP, HCG, LIP, TROPI, CDP, CP #### [facility] [address] [place] [address] Curtain Stitcher: Dioni Merlos MDUrea nitrogen [Mass/Vol]mg/dLLow6-20Ohio Valley HospitalComment on above:Performed By: #### CRP, HCG, LIP, TROPI, CDP, CP #### [facility] [address] [place] [address] Curtain Stitcher: Dioni Merlos MDBasic Metabolic Panel w/ Reflex to MGon [id number] gap [Moles/Vol]8 mmol/LLow9 - 16 mmol/LBon [facility]wise Health Medical CenterLight Sciences Oncology Calcium [Mass/Vol]8.8 mg/dL8.6 - 10.4 mg/dLBon [facility] Medical CenterLight Sciences OncologyChloride [Moles/Vol]108 mmol/LHigh98 - 107 mmol/LBon [facility] Medical CenterLight Sciences OncologyCO2 [Moles/Vol] 24 mmol/L20 - 31 mmol/LBon [facility] CenterLight Sciences OncologyCreatinine [Mass/Vol]0.5 mg/dLLow 0.6 - 0.9 mg/dLBon [facility] Medical CenterLight Sciences OncologyEst, Glom Filt Rate- PINFBon Valleywise Health Medical CenterLight Sciences OncologyComment on above: These results are not intended [...] therapy that affects renal tubular secretion. Glucose [Mass/Vol]99 mg/dL74 - 99 mg/dLBon [facility] Medical CenterLight Sciences OncologyInterpretation and review of laboratory resultsAbnormalBon [facility] Medical CenterLight Sciences OncologyPotassium [Moles/Vol]4.2 mmol/L3.7 - 5.3 mmol/LBon SecLight Sciences OncologySodium [Moles/Vol] 140 mmol/L136 - 145 mmol/LBon [facility] Medical CenterLight Sciences OncologyUrea nitrogen [Mass/Vol]mg/dL Low6 - 20 mg/dLBon [facility] Medical CenterLight Sciences OncologyBon [facility] North HospitalCBC with Auto Differentialon [id number] (Bld) [#/Vol]0.05 10*3/uLBon [facility] HealthBasophils/100 WBC (Bld)1 %0 - 2 %[facility] HealthEosinophils (Bld) [#/Vol]0.14 10*3/uLBon [facility]ours [facility] HealthEosinophils/100 WBC (Bld)2 %1 - 4 % [facility] HealthErythrocyte distribution width (RBC) [Ratio]14.0 %11.8 - 14.4 %[facility] HospitalHematocrit (Bld) [Volume fraction]30.8 %Low36.3 - 47.1 %[facility] HospitalHemoglobin (Bld) [Mass/Vol]9.4 g/dLLow11.9 - 15.1 g/dLBon Secours Mansfield HospitalImmature granulocytes (Bld) [#/Vol]0.08 10*3/uLBon Secours Mansfield HospitalImmature granulocytes/100 WBC (Bld)1 %Jgrw7Raw SecWomen's and Children's Hospital HealthInterpretation and review of laboratory resultsAbnormalBon SecWomen's and Children's Hospital HealthLymphocytes/100 WBC (Bld)12 %Low24 - 43 %[facility] Lymphocytes/100 WBC (Bld)1.15 %[facility] SecCleveland Clinic Children's Hospital for RehabilitationH (RBC) [Entitic mass] 27.0 pg25.2 - 33.5 pgBon Secours Fulton County Health CenterHC (RBC) [Mass/Vol]30.5 g/dL28.4 - 34.8 g/dLBon SecCleveland Clinic Children's Hospital for RehabilitationV (RBC) [Entitic vol]88.5 fL82.6 - 102.9 fL [facility] HealthMonocytes/100 WBC (Bld)5 %3 - 12 %[facility] Centery HealthMonocytes/100 WBC (Bld)0.52 %[facility] HealthNeutrophils/100 WBC (Bld)79 %High36 - 65 %Bon SecWomen's and Children's Hospital HealthNucleated RBC/100 WBC (Bld) [Ratio]0.0 %0.0 per 100 WBCBon SecSelect Medical Specialty Hospital - TrumbullPlatelet mean volume (Bld) [Entitic vol]9.5 fL8.1 - 13.5 fLBon Secours [facility]cy HealthPlatelets (Bld) [#/Vol] 405 10*3/uLBon [facility] North HospitalRBC (Bld) [#/Vol]3.48 10*6/uLLow3.95 - 5.11 m/uLBon Secours Richmond Community HospitalSegmented neutrophils/100 WBC (Bld)7.66 %[facility] HospitalWBC other (Bld) [#/Vol]9.6Bon [facility] CenterCBC with Diffon [id number]. Basophil0.05 k/uLNormal0.00-0.20[facility] Valley HospitalComment on above:Performed By: #### CRP, HCG, LIP, TROPI, CDP, CP #### [place] [address] Curtain Stitcher: Ruba Garg.Imm.Granulocyte0.08 k/uLNormal0.00-0.30[facility] Valley HospitalComment on above:Performed By: #### CRP, HCG, LIP, TROPI, CDP, CP #### [facility] [address] [place] [address] Curtain Stitcher: Ruba Garg.Neutrophil (Seg)7.66 k/uLNormal1.50-8.10 [facility] HospitalComment on above:Performed By: #### CRP, HCG, LIP, TROPI, CDP, CP #### [facility] [address] [place] [address] Curtain Stitcher: Dioni Merlos MDBasophils/100 WBC (Bld)1 %Normal0-2MFremont Memorial HospitalComment on above:Performed By: #### CRP, HCG, LIP, TROPI, CDP, CP #### [facility] [address] [place] [address] Curtain Stitcher: Dioni Merlos MDEosinophils (Bld) [#/Vol]0.14 10*3/uLNormal 0.00-0.44[facility] Valley HospitalComment on above:Performed By: #### CRP, HCG, LIP, TROPI, CDP, CP #### [address] [address] Curtain Stitcher: Dioni Merlos MDEosinophils/100 WBC (Bld)2 %Normal1-4Ohio Valley HospitalComment on above:Performed By: #### CRP, HCG, LIP, TROPI, CDP, CP #### [place] [address] Curtain Stitcher: Dioni Merlos MDErythrocyte distribution width (RBC) [Ratio]14.0 %Zkeevm13.8-14.4Ohio Valley HospitalComment on above:Performed By: #### CRP, HCG, LIP, TROPI, CDP, CP #### [place] [address] Curtain Stitcher: Dioni Merlos MDHematocrit (Bld) [Volume fraction]30.8 %Low 36.3-47.1MFremont Memorial HospitalComment on above:Performed By: #### CRP, HCG, LIP, TROPI, CDP, CP #### [address] [address] Curtain Stitcher: Dioni Merlos MDHemoglobin (Bld) [Mass/Vol]9.4 g/dLLow11.9-15.1 [facility] HospitalComment on above:Performed By: #### CRP, HCG, LIP, TROPI, CDP, CP #### [address] [address] Curtain Stitcher: Dioni Merlos MDImmature granulocytes/100 WBC (Bld)1 %Ykxo7OdmoqOhio Valley HospitalComment on above:Performed By: #### CRP, HCG, LIP, TROPI, CDP, CP #### [facility] [address] [place] [address] Curtain Stitcher: Dioni Merlos MDLymphocytes (Bld) [#/Vol]1.15 10*3/uLNormal 1.10-3.70[facility] HospitalComment on above:Performed By: #### CRP, HCG, LIP, TROPI, CDP, CP #### [address] [address] Curtain Stitcher: Dereck Gargmphocytes/100 WBC (Bld)12 %Ewn22-87WtjetOhio Valley HospitalComment on above:Performed By: #### CRP, HCG, LIP, TROPI, CDP, CP #### [place] [address] Curtain Stitcher: JAN GargCH (RBC) [Entitic mass]27.0 bkClblwf72.2-33.5 [facility] HospitalComment on above:Performed By: #### CRP, HCG, LIP, TROPI, CDP, CP #### [place] [address] Curtain Stitcher: JAN GargCHC (RBC) [Mass/Vol]30.5 g/cFMntvuo37.4-34.8 [facility] HospitalComment on above:Performed By: #### CRP, HCG, LIP, TROPI, CDP, CP #### [facility] [address] [place] [address] Curtain Stitcher: JAN GargCV (RBC) [Entitic vol]88.5 vYTmleyq64.6-102.9 [facility] HospitalComment on above:Performed By: #### CRP, HCG, LIP, TROPI, CDP, CP #### [facility] [address] [place] [address] Curtain Stitcher: JAN Gargonocytes (Bld) [#/Vol]0.52 10*3/uLNormal 0.10-1.20[facility] HospitalComment on above:Performed By: #### CRP, HCG, LIP, TROPI, CDP, CP #### [facility] [address] [place] [address] Curtain Stitcher: JAN Gargonocytes/100 WBC (Bld)5 %Normal3-12[facility] Valley HospitalComment on above:Performed By: #### CRP, HCG, LIP, TROPI, CDP, CP #### [facility] [address] [place] [address] Curtain Stitcher: Laly Garg (Seg)79 %Ecep52-51CdodaOhio Valley HospitalComment on above:Performed By: #### CRP, HCG, LIP, TROPI, CDP, CP #### [address] [address] Curtain Stitcher: Dioni Merlos MDNRBC Automated0.0 per 100 WBCNormal0.0[facility] Valley HospitalComment on above:Performed By: #### CRP, HCG, LIP, TROPI, CDP, CP #### [facility] [address] [place] [address] Curtain Stitcher: Natalia Garg mean volume (Bld) [Entitic vol]9.5 fL Normal8.1-13.5[facility] Valley HospitalComment on above:Performed By: #### CRP, HCG, LIP, TROPI, CDP, CP #### [facility] [address] [place] [address] Curtain Stitcher: Lionel Garg (Bld) [#/Vol]405 10*3/oUFrvoxl933-721 [facility] HospitalComment on above:Performed By: #### CRP, HCG, LIP, TROPI, CDP, CP #### [facility] [address] [place] [id number] Curtain Stitcher: THEODORE Garg (d) [#/Vol]3.48 10*6/uLLow3.95-5.11[facility] Springs Medical CenterComment on above:Performed By: #### CRP, HCG, LIP, TROPI, CDP, CP #### [facility] [address] [place], [place] [id number] Curtain Stitcher: HONG Garg ([facility]) [#/Vol]9.6 10*3/uLNormal3.5-11.3MercTustin Rehabilitation HospitalComment on above:Performed By: #### CRP, HCG, LIP, TROPI, CDP, CP #### [facility] [address] [place] [address] Curtain Stitcher: Dioni Merlos MDCT ABDOMEN PELVIS WO CONTRASTon [id number] ABDOMEN PELVIS WO CONTRASTEXAMINATION: CT OF THE ABDOMEN AND PELVIS WITHOUT [...] colonic wall thickening. Stable trace ascites and peritoneal/retroperitoneal edema. Pelvis: In the upper pelvis the [...] Signed by: Willie Reid MD 05/06/24 Final resultNormalMerKindred HospitalCT Abdomen and Pelvis WO contraston . Stable small bowel and colonic inflammatory changes and adynamic ileus. No evidence of a bowel leak. 2. Stable to slightly improved multiloculated pelvic abscesses. [facility] RIS CONSOLIDATEDEXAMINATION: CT OF THE ABDOMEN AND PELVIS WITHOUT [...] colonic wall thickening. Stable trace ascites and peritoneal/retroperitoneal edema. Pelvis: In the upper pelvis the [...] and pelvic alignment. No acute osseous abnormality. Willie Louis MD - 05/06/2024 EXAMINATION: CT OF THE [...] colonic wall thickening. Stable trace ascites and peritoneal/retroperitoneal edema. Pelvis: In the upper pelvis the [...] Stable to slightly improved multiloculated pelvic abscesses. [facility] HospitalRadiology Study observation (narrative)[facility] HealthStayful [facility] CenterCoSchedule St[facility]on CampusCT Abdomen and Pelvis WO contrastOrdered By: Willie Reid on 05-06-2024 [facility] Work Phone: Cult,Bloodon [id number],BloodSpecimen Description .BLOOD Special Requests LFT AC 10ML Culture NO GROWTH 5 DAYS Report Status FINAL 05/06/2024[facility] OhioComment on above:Performed By: #### CRP, HCG, LIP, TROPI, CDP, CP #### [facility] [address] [place], [place] [id number] Curtain Stitcher: Dioni Merlos [facility] YUKONult,BloodSpecimen Description .BLOOD Special Requests RAC 5ML Culture NO GROWTH 5 DAYS Report Status FINAL 05/06/2024[facility] OhioComment on above:Performed By: #### CBC, LACTIC #### [facility] [address] [place], [place] [id number] Curtain Stitcher: ANGIE Gargulture, Blood 1on [id number] identified Cx Nom (Unsp spec)NO GROWTH 5 DAYSBon Secours Mer[facility] HealthService comment (Unsp spec) [Interp]LFT AC 10MLBon [facility] HealthSpecimen Description.BLOODBon Secours [facility] Medical Centery St[facility] CampusBon Secours [facility] Centery HealthMicroorganism identified Cx Nom (Unsp spec)NO GROWTH 5 DAYSBon Secours [facility] HealthService comment (Unsp spec) [Interp]RAC 5MLBon [facility]ours [facility] HealthSpecimen Description .BLOODBon Secours [facility] Va Medical Centery HealthBon [facility]ours [facility] Centery HealthBasic Metabolic Panelon [id number] gap [Moles/Vol]11 mmol/L9 - 16 mmol/LBon [facility] Calcium [Mass/Vol]8.6 mg/dL8.6 - 10.4 mg/dLBon Secours [facility]cy HealthChloride [Moles/Vol]108 mmol/LHigh98 - 107 mmol/LBon Secours [facility] HealthCO2 [Moles/Vol] 19 mmol/LLow20 - 31 mmol/LBon [facility] HospitalCreatinine [Mass/Vol]0.5 mg/dL Low0.6 - 0.9 mg/dLBon [facility] HospitalEst, Glom Filt Rate- PINFBon [facility] North HospitalComment on above: These results are not intended [...] therapy that affects renal tubular secretion. Glucose [Mass/Vol]113 mg/bOEvvc63 - 99 mg/dLBon [facility] Interpretation and review of laboratory resultsAbnormCarilion Ro[facility]oke Community Hospital Potassium [Moles/Vol]3.2 mmol/LLow3.7 - 5.3 mmol/LBon [facility] HospitalSodium [Moles/Vol]138 mmol/L136 - 145 mmol/LBon [facility] HospitalUrea nitrogen [Mass/Vol]mg/dLLow6 - 20 mg/dLBon [facility] Basic Metabolic Profon [id number] gap [Moles/Vol]11 mmol/LNormal9-16Ohio Valley HospitalComment on above:Performed By: #### CBC, LACTIC #### [facility] [address] [place] [address] Curtain Stitcher: ANGIE Gargalcium [Mass/Vol]8.6 mg/dLNormal8.6-10.4[facility] Valley HospitalComment on above:Performed By: #### CBC, LACTIC #### [facility] [place] [address] Curtain Stitcher: ANGIE Garghloride [Moles/Vol]108 mmol/YSjjy89-083DrzyxOhio Valley HospitalComment on above:Performed By: #### CBC, LACTIC #### [facility] [address] [place] [address] Curtain Stitcher: Dioni Merlos MDCO2 [Moles/Vol]19 mmol/WRld11-65LuopbOhio Valley HospitalComment on above:Performed By: #### CBC, LACTIC #### [facility] [address] [place] [address] Curtain Stitcher: ANGIE Gargreatinine [Mass/Vol]0.5 mg/dLLow0.6-0.9Ohio Valley HospitalComment on above:Performed By: #### CBC, LACTIC #### [facility] [address] [place] [address] Curtain Stitcher: Dioni Merlos MDGFR/1.73 sq M.predicted among non-blacks MDRD (S/P/Bld) [Vol rate/Area]mL/min/{1.73_m2}Normal>60[facility] Valley HospitalComment on above:Result Comment: These results are not intended for [...] or following therapy that affects renal tubular secretion.Performed By: #### CBC, LACTIC #### [facility] [address] [place] [address] Curtain Stitcher: Dioni Merlos MDGlucose [Mass/Vol]113 mg/mFHzee58-79MkzttFremont Memorial HospitalComment on above:Performed By: #### CBC, LACTIC #### [facility] [address] [place] [address] Curtain Stitcher: RACHID Gargotassium [Moles/Vol]3.2 mmol/LLow3.7-5.3MFremont Memorial HospitalComment on above:Performed By: #### CBC, LACTIC #### [facility] [address] [place] [address] Curtain Stitcher: CASS Gargodium [Moles/Vol]138 mmol/SHorgug462-358YnjlwOhio Valley HospitalComment on above:Performed By: #### CBC, LACTIC #### [facility] [address] [place] [address] Curtain Stitcher: Dioni Merlos MDUrea nitrogen [Mass/Vol]mg/dLLow6-20[facility] Valley HospitalComment on above:Performed By: #### CBC, LACTIC #### [facility] [address] [place] [address] Curtain Stitcher: Dioni Merlos [facility] – YUKONBC with Auto Differentialon [id number] (Bld) [#/Vol]0.04 10*3/uLBon Secours Mercy HealthBasophils/100 WBC (Bld)0 %0 - 2 %[facility] HealthEosinophils (Bld) [#/Vol]0.25 10*3/uLBon Secours Mercy HealthEosinophils/100 WBC (Bld)2 %1 - 4 %[facility] Erythrocyte distribution width (RBC) [Ratio]14.0 %11.8 - 14.4 %[facility] HealthHematocrit (Bld) [Volume fraction]32.4 %Low36.3 - 47.1 %[facility] CampusHemoglobin (Bld) [Mass/Vol]9.8 g/dLLow11.9 - 15.1 g/dLBon Secours Mercy St[facility], [facility] CampusImmature granulocytes (Bld) [#/Vol]0.09 10*3/uLBon Secours [facility] Health Immature granulocytes/100 WBC (Bld)1 %Jcvn5Kwg Secours [facility] Medical Centery [facility] Interpretation and review of laboratory resultsAbnormalBon Secours [facility] Health Lymphocytes/100 WBC (Bld)7 %Low24 - 43 %[facility], Iront[facility] CampusLymphocytes/100 WBC (Bld)0.82 %LowBon Secours Tog[facility] Va Medical Centery Morrow County HospitalH (RBC) [Entitic mass]26.6 pg25.2 - 33.5 pgBon Secours [facility] Va Medical Centery Morrow County HospitalHC (RBC) [Mass/Vol]30.2 g/dL28.4 - 34.8 g/dLBon Genesis HospitalV (RBC) [Entitic vol]87.8 fL82.6 - 102.9 fLBon [facility] HospitalMonocytes/100 WBC (Bld)6 %3 - 12 %Bon [facility] Monocytes/100 WBC (Bld)0.72 %Bon [facility] HospitalNeutrophils/100 WBC (Bld)84 %High36 - 65 %Bon [facility] HospitalNucleated RBC/100 WBC (Bld) [Ratio]0.0 % 0.0 per 100 WBCBon [facility] North HospitalPlatelet mean volume (Bld) [Entitic vol] 9.2 fL8.1 - 13.5 fLBon [facility] North HospitalPlatelets (Bld) [#/Vol]366 10*3/uLBon [facility] HospitalRBC (Bld) [#/Vol]3.69 10*6/uLLow3.95 - 5.11 m/uLBon [facility] North HospitalSegmented neutrophils/100 WBC (Bld)10.26 %HighBon [facility] North HospitalWBC other (Bld) [#/Vol]12.2HighBon [facility] CenterCBC with Diffon [id number]. Basophil0.04 k/uLNormal0.00-0.20[facility] HospitalComment on above:Performed By: #### CBC, LACTIC #### [facility] [address] [place] [address] Curtain Stitcher: Ruba Garg.Imm.Granulocyte0.09 k/uLNormal0.00-0.30[facility] HospitalComment on above:Performed By: #### CBC, LACTIC #### [facility] [address] [place] [address] Curtain Stitcher: Ruba Garg.Neutrophil (Seg)10.26 k/uLHigh1.50-8.10Ohio [facility] HospitalComment on above:Performed By: #### CBC, LACTIC #### [address] [address] Curtain Stitcher: Dioni Merlos MDBasophils/100 WBC (Bld)0 %Normal0-2MFremont Memorial HospitalComment on above:Performed By: #### CBC, LACTIC #### [address] [address] Curtain Stitcher: Dioni Merlos MDEosinophils (Bld) [#/Vol]0.25 10*3/uLNormal 0.00-0.44[facility] HospitalComment on above:Performed By: #### CBC, LACTIC #### [address] [address] Curtain Stitcher: Dioni Merlos MDEosinophils/100 WBC (Bld)2 %Normal1-4Ohio Valley HospitalComment on above:Performed By: #### CBC, LACTIC #### [place] [address] Curtain Stitcher: Dioni Merlos MDErythrocyte distribution width (RBC) [Ratio]14.0 %Elknex95.8-14.4Ohio Valley HospitalComment on above:Performed By: #### CBC, LACTIC #### [place] [address] Curtain Stitcher: Dioni Merlos MDHematocrit (Bld) [Volume fraction]32.4 %Low 36.3-47.1MFremont Memorial HospitalComment on above:Performed By: #### CBC, LACTIC #### [place] [address] Curtain Stitcher: Dioni Merlos MDHemoglobin (Bld) [Mass/Vol]9.8 g/dLLow11.9-15.1 [facility] HospitalComment on above:Performed By: #### CBC, LACTIC #### [address] [address] Curtain Stitcher: Johanny Gargmature granulocytes/100 WBC (Bld)1 %Cacs7YqyzrOhio Valley HospitalComment on above:Performed By: #### CBC, LACTIC #### [address] [address] Curtain Stitcher: Dioni Merlos MDLymphocytes (Bld) [#/Vol]0.82 10*3/uLLow 1.10-3.70[facility] Valley HospitalComment on above:Performed By: #### CBC, LACTIC #### [address] [address] Curtain Stitcher: Dereck Gargmphocytes/100 WBC (Bld)7 %Tsy45-47QufocOhio Valley HospitalComment on above:Performed By: #### CBC, LACTIC #### [address] [address] [address] Curtain Stitcher: JAN GargCH (RBC) [Entitic mass]26.6 reXficgj47.2-33.5 [facility] HospitalComment on above:Performed By: #### CBC, LACTIC #### [address] [address] Curtain Stitcher: JAN GargCHC (RBC) [Mass/Vol]30.2 g/bRKflmis25.4-34.8 [facility] HospitalComment on above:Performed By: #### CBC, LACTIC #### [address] [address] Curtain Stitcher: JAN GargCV (RBC) [Entitic vol]87.8 yLYosodw98.6-102.9 [facility] HospitalComment on above:Performed By: #### CBC, LACTIC #### [address] [address] Curtain Stitcher: Dioni Merlos MDMonocytes (Bld) [#/Vol]0.72 10*3/uLNormal 0.10-1.20[facility] HospitalComment on above:Performed By: #### CBC, LACTIC #### [address] [address] Curtain Stitcher: JAN Gargonocytes/100 WBC (Bld)6 %Normal3-12[facility] HospitalComment on above:Performed By: #### CBC, LACTIC #### [address] [address] Curtain Stitcher: Laly Garg (Seg)84 %Ekvh81-80XduisOhio Valley HospitalComment on above:Performed By: #### CBC, LACTIC #### [address] [address] Curtain Stitcher: GAYATRI Garg Automated0.0 per 100 WBCNormal0.0[facility] HospitalComment on above:Performed By: #### CBC, LACTIC #### [address] [address] Curtain Stitcher: RACHID Garglatelet mean volume (Bld) [Entitic vol]9.2 fL Normal8.1-13.5[facility] HospitalComment on above:Performed By: #### CBC, LACTIC #### [address] [address] Curtain Stitcher: Dioni Merlos MDPlatelets (Bld) [#/Vol]366 10*3/uWOfksrh353-408 [facility] HospitalComment on above:Performed By: #### CBC, LACTIC #### [address] [address] Curtain Stitcher: Dioni Madoff, MDRBC (Bld) [#/Vol]3.69 10*6/uLLow3.95-5.11[facility] HospitalComment on above:Performed By: #### CBC, LACTIC #### [facility] [address] [place] [address] Curtain Stitcher: Dioni Merlos MDWBC (Bld) [#/Vol]12.2 10*3/uLHigh3.5-11.3Mmercy health fairfield hospitaly [facility] Springs [facility] CenterComment on above:Performed By: #### CBC, LACTIC #### [facility] [address] [place] [address] Curtain Stitcher: JARROD Garg (Potassium)on 14-25-2949Clwvoztnq [Moles/Vol] 3.0 mmol/LLow3.7-5.3MFremont Memorial HospitalComment on above:Performed By: #### LACTIC #### [facility] [address] [place] [address] Curtain Stitcher: Dar Garg Panel Informationon [id number] and review of laboratory resultsAbnormalBon [facility] Surgery CenterPhosphoruson 07-47-5611Msqeeflce [Mass/Vol]2.4 mg/dLLow2.5 - 4.5 mg/dLBon [facility] North HospitalPhosphorus, Inorg.on 25-52-5255Nawiljvyjm, Inorg. 2.4 mg/dLLow2.5-4.5[facility] HospitalComment on above:Performed By: #### CBC, LACTIC #### [facility] [address] [place] [address] Curtain Stitcher: Isrrael Gargiumon 43-38-3426Syfinjfsfpwjpd and review of laboratory resultsAbnormalBon [facility] North HospitalPotassium [Moles/Vol]3.0 mmol/LLow3.7 - 5.3 mmol/LBon SecSt. [facility] [place] Vancomycin Level, Randomon 08-45-7111Pzkjhdzlyw [Mass/Vol]44.1 ug/mLHigh5.0 - 40.0 ug/mLBon SecSelect Medical Specialty Hospital - TrumbullComment on above:Higher trough serum vancomycin concentrations of 15-20 ug/mL are recommended for complicated infections such as bacteremia, endocarditis, osteomyelitis, meningitis, and hospital acquired pneumonia. Vancomycin,Randomon [id number] ug/mLHigh5.0-40.0[facility] HospitalComment on above:Result Comment: Higher trough serum vancomycin concentrations of 15-20 ug/mL are recommended for complicated infections such as bacteremia, endocarditis, osteomyelitis, meningitis, and hospital acquired pneumonia.Performed By: #### CBC, LACTIC #### [facility] [address] [id number] Curtain Stitcher: Dioni Merlos [facility] with Auto Differentialon [id number] (Bld) [#/Vol]0.03 10*3/uLBon Secours [facility] Medical Centery [facility] CampusBasophils/100 WBC (Bld)0 %0 - 2 %[facility] CampusEosinophils (Bld) [#/Vol]0.18 10*3/uLBon Secours Mercy St[facility] CampusEosinophils/100 WBC (Bld)1 %1 - 4 %[facility] Centery Joshfire Erythrocyte distribution width (RBC) [Ratio]14.0 %11.8 - 14.4 %[facility] CampusHematocrit (Bld) [Volume fraction]30.6 %Low36.3 - 47.1 %[facility] JoshfireHemoglobin (Bld) [Mass/Vol]9.5 g/dLLow11.9 - 15.1 g/dLBon Secours [facility] Medical Centery St[facility] CampusImmature granulocytes (Bld) [#/Vol]0.12 10*3/uLBon [facility]ours [facility] Joshfire Immature granulocytes/100 WBC (Bld)1 %Ydwu0Ijy [facility] Centery [facility] Interpretation and review of laboratory resultsAbnormalBon Secours [facility] Centery Health Lymphocytes/100 WBC (Bld)5 %Low24 - 43 %[facility] CampusLymphocytes/100 WBC (Bld)0.81 %LowBon Secours Mercy St. [facility] Iront[facility] CampusMCH (RBC) [Entitic mass]26.5 pg25.2 - 33.5 pgBon Genesis HospitalHC (RBC) [Mass/Vol]31.0 g/dL28.4 - 34.8 g/dLBon SecCleveland Clinic Children's Hospital for RehabilitationV (RBC) [Entitic vol]85.2 fL82.6 - 102.9 fLBon Secours Richmond Community HospitalMonocytes/100 WBC (Bld)5 %3 - 12 %[facility] Monocytes/100 WBC (Bld)0.79 %[facility] HospitalNeutrophils/100 WBC (Bld)88 %High36 - 65 %Bon [facility] HospitalNucleated RBC/100 WBC (Bld) [Ratio]0.0 % 0.0 per 100 WBCBon [facility] North HospitalPlatelet mean volume (Bld) [Entitic vol] 9.1 fL8.1 - 13.5 fLBon Secours Richmond Community HospitalPlatelets (Bld) [#/Vol]319 10*3/uLBon [facility] HospitalRBC (Bld) [#/Vol]3.59 10*6/uLLow3.95 - 5.11 m/uLBon Secours Richmond Community HospitalSegmented neutrophils/100 WBC (Bld)14.09 %HighBon [facility] North HospitalWBC other (Bld) [#/Vol]16.0HighBon [facility] Hills Surgery CenterCBC with Diffon [id number]. Basophil0.03 k/uLNormal0.00-0.20[facility] HospitalComment on above:Performed By: #### CRP, HCG, LIP, TROPI, CDP, CP #### [facility] [address] [place] [phone] Curtain Stitcher: Ruba Garg.Imm.Granulocyte0.12 k/uLNormal0.00-0.30[facility] HospitalComment on above:Performed By: #### CRP, HCG, LIP, TROPI, CDP, CP #### [facility] [address] [place] [phone] Curtain Stitcher: Ruba Garg.Neutrophil (Seg)14.09 k/uLHigh1.50-8.10[facility] HospitalComment on above:Performed By: #### CRP, HCG, LIP, TROPI, CDP, CP #### [facility]Hel[facility] [address] [place] [address] Curtain Stitcher: Dioni Merlos MDBasophils/100 WBC (Bld)0 %Normal0-2MFremont Memorial HospitalComment on above:Performed By: #### CRP, HCG, LIP, TROPI, CDP, CP #### [place] [address] Curtain Stitcher: Dioni Merlos MDEosinophils (Bld) [#/Vol]0.18 10*3/uLNormal 0.00-0.44[facility] HospitalComment on above:Performed By: #### CRP, HCG, LIP, TROPI, CDP, CP #### [facility] [address] [place] [address] Curtain Stitcher: ZORAN Gargosinophils/100 WBC (Bld)1 %Normal1-4[facility] HospitalComment on above:Performed By: #### CRP, HCG, LIP, TROPI, CDP, CP #### [facility] [address] [place] [address] Curtain Stitcher: Dioni Merlos MDErythrocyte distribution width (RBC) [Ratio]14.0 %Vwmaby19.8-14.4[facility] HospitalComment on above:Performed By: #### CRP, HCG, LIP, TROPI, CDP, CP #### [facility] [address] [place] [address] Curtain Stitcher: Dioni Merlos MDHematocrit (Bld) [Volume fraction]30.6 %Low 36.3-47.1MFremont Memorial HospitalComment on above:Performed By: #### CRP, HCG, LIP, TROPI, CDP, CP #### [address] [address] Curtain Stitcher: Dioni Merlos MDHemoglobin (Bld) [Mass/Vol]9.5 g/dLLow11.9-15.1 [facility] HospitalComment on above:Performed By: #### CRP, HCG, LIP, TROPI, CDP, CP #### [address] [address] Curtain Stitcher: Dioni Merlos MDImmature granulocytes/100 WBC (Bld)1 %Vrsg4TuokcOhio Valley HospitalComment on above:Performed By: #### CRP, HCG, LIP, TROPI, CDP, CP #### [address] [address] Curtain Stitcher: Dioni Merlos MDLymphocytes (Bld) [#/Vol]0.81 10*3/uLLow 1.10-3.70[facility] HospitalComment on above:Performed By: #### CRP, HCG, LIP, TROPI, CDP, CP #### [address] [address] Curtain Stitcher: Dereck Gargmphocytes/100 WBC (Bld)5 %Ihq37-28OetxoOhio Valley HospitalComment on above:Performed By: #### CRP, HCG, LIP, TROPI, CDP, CP #### [facility] [address] [place] [address] Curtain Stitcher: SHARYN Garg (RBC) [Entitic mass]26.5 tvRggyap96.2-33.5 [facility] HospitalComment on above:Performed By: #### CRP, HCG, LIP, TROPI, CDP, CP #### [facility] [address] [place] [address] Curtain Stitcher: Dioni Madoff, MDMCHC (RBC) [Mass/Vol]31.0 g/sASehsvl82.4-34.8 [facility] HospitalComment on above:Performed By: #### CRP, HCG, LIP, TROPI, CDP, CP #### [address] [address] Curtain Stitcher: JAN GargCV (RBC) [Entitic vol]85.2 gXRnpzvj60.6-102.9 [facility] HospitalComment on above:Performed By: #### CRP, HCG, LIP, TROPI, CDP, CP #### [address] [address] Curtain Stitcher: JAN Gargonocytes (Bld) [#/Vol]0.79 10*3/uLNormal 0.10-1.20[facility] HospitalComment on above:Performed By: #### CRP, HCG, LIP, TROPI, CDP, CP #### [address] [address] Curtain Stitcher: JAN Gargonocytes/100 WBC (Bld)5 %Normal3-12[facility] HospitalComment on above:Performed By: #### CRP, HCG, LIP, TROPI, CDP, CP #### [address] [address] Curtain Stitcher: Karishma Gargophil (Seg)88 %Bjbj01-90UckhvOhio Valley HospitalComment on above:Performed By: #### CRP, HCG, LIP, TROPI, CDP, CP #### [place] [address] Curtain Stitcher: HENNY GargBC Automated0.0 per 100 WBCNormal0.0[facility] HospitalComment on above:Performed By: #### CRP, HCG, LIP, TROPI, CDP, CP #### [address] [address] Curtain Stitcher: Natalia Garg mean volume (Bld) [Entitic vol]9.1 fL Normal8.1-13.5[facility] HospitalComment on above:Performed By: #### CRP, HCG, LIP, TROPI, CDP, CP #### [address] [address] Curtain Stitcher: Latisha Gargtetaina (Bld) [#/Vol]319 10*3/dEMvtrgq979-432 [facility] HospitalComment on above:Performed By: #### CRP, HCG, LIP, TROPI, CDP, CP #### [address] [address] Curtain Stitcher: FADY Garg (Bld) [#/Vol]3.59 10*6/uLLow3.95-5.11[facility] HospitalComment on above:Performed By: #### CRP, HCG, LIP, TROPI, CDP, CP #### [address] [address] Curtain Stitcher: Dioni Merlos MDWSABINA (Bld) [#/Vol]16.0 10*3/uLHigh3.5-11.3MFremont Memorial HospitalComment on above:Performed By: #### CRP, HCG, LIP, TROPI, CDP, CP #### [address] [address] Curtain Stitcher: LUIIG Garg Guidance for drainage of abscess and placement of drainage catheter of Unspecified body regionon 05-04-[address]-guided pelvic fluid collection aspiration using a left transgluteal approach. Jose Manuel Antoine MD - 05/04/2024 PROCEDURE: CT GUIDEDPELVIC FLUID [...] and supervised by the attending with physician gvhs-[id number] monitoring. Medications were provided and recorded by Radiology nurses. DOSE: DOSE/DLP: 351.91 mGy-cm Dose modulation, iterative reconstruction, and/or weight based adjustment of the mA/kV was utilized to reduce the radiation dose to as low as reasonably achievable. TECHNIQUE/PROCEDURE DETAILS: Informed consent was obtained after a detailed explanation of the procedure including risks. [place] protocol was followed. Sterile gown, masks, hats, and gloves utilized for maximal sterile barrier. The patient was placed in the prone position on the CT couch. A delinquency prevention social worker scan was performed of the pelvis. The previously identified pelvic fluid was re-identified, and contrast could still be seen within the rectum/sigmoid colon. Moderate conscious sedation was initiated. A site was selected for drainage in the left perirectal region using a transgluteal approach. The skin was prepped and draped in sterile manner, and 1% lidocaine was utilized for local anesthetic. A 5 Maltese 9 Yueh needle sheath was advanced under [...] collection aspiration using a left transgluteal approach. Bon [facility] Hills Surgery CenterLactic Acidon [id number] Acid, Whole Blood0.9 mmol/L0.7 - 2.1 mmol/LBon [facility] Hills Surgery CenterLactic Acid,Whole Bl0.9 mmol/LNormal0.7-2.1[facility] Springs Medical CenterComment on above:Performed By: #### CRP #### [facility] [address] [place] [address] Curtain Stitcher: Dioni Merlos MDInterpretation and review of laboratory results AbnormalBon [facility] North HospitalLactic Acid, Whole Blood0.5 mmol/LLow0.7 - 2.1 mmol/LBon [facility] Hills Surgery CenterLactic Acid,Whole Bl0.5 mmol/LLow0.7-2.1[facility] Springs Medical CenterComment on above:Performed By: #### CRP #### [facility] [address] [place] [address] Curtain Stitcher: Dioni Merlos MDThe Hospital Of Central [facility] Metabolic Panelon 77-38-8817Ppf, Glom Filt Rate- PINFBon [facility] North HospitalComup health system on above: These results are not intended [...] tubular secretion. Interpretation and review of laboratory resultsAbnormalBon [facility] Hospital Basic Metabolic Profon 46-60-6048Qctnq gap [Moles/Vol]17 mmol/LHigh9-16[facility] HospitalComup health system on above:Performed By: #### CRP, HCG, LIP, TROPI, CDP, CP #### [facility] [address] [place] [address] Curtain Stitcher: ANGIE Gargalcium [Mass/Vol]7.9 mg/dLLow8.6-10.4Bon [facility] HospitalComup health system on above:Performed By: #### CRP, HCG, LIP, TROPI, CDP, CP #### [facility] [address] [place] [address] Curtain Stitcher: Dioni Merlos MDChloride [Moles/Vol]104 mmol/SBuepag77-271DolCarilion Giles Memorial Hospital on above:Performed By: #### CRP, HCG, LIP, TROPI, CDP, CP #### [facility] [address] [place] [address] Curtain Stitcher: Dioni Merlos MDCO2 [Moles/Vol]13 mmol/ZOoi53-20Qdj [facility] on above:Performed By: #### CRP, HCG, LIP, TROPI, CDP, CP #### [facility] [address] [place] [address] Curtain Stitcher: ANGIE Gargreatinine [Mass/Vol]0.5 mg/dLLow0.6-0.9Bon [facility] on above:Performed By: #### CRP, HCG, LIP, TROPI, CDP, CP #### [address] [address] Curtain Stitcher: Dioni Merlos MDGFR/1.73 sq M.predicted among non-blacks MDRD (S/P/Bld) [Vol rate/Area]mL/min/{1.73_m2}Normal>60Ohio [facility] HospitalComment on above:Result Comment: These results are not intended for [...] or following therapy that affects renal tubular secretion.Performed By: #### CRP, HCG, LIP, TROPI, CDP, CP #### [facility] [address] [place] [address] Curtain Stitcher: Dioni Merlos MDGlucose [Mass/Vol]60 mg/dVVef35-77Cxz [facility] on above:Performed By: #### CRP, HCG, LIP, TROPI, CDP, CP #### [facility] [address] [place] [address] Curtain Stitcher: RACHID Gargotassium [Moles/Vol]3.7 mmol/LNormal3.7-5.3[facility] HealthComment on above:Performed By: #### CRP, HCG, LIP, TROPI, CDP, CP #### [facility] [address] [place] [address] Curtain Stitcher: CASS Gargodium [Moles/Vol]134 mmol/ILhs380-566Xdc SecWashington Rural Health Collaborativey HealthComment on above:Performed By: #### CRP, HCG, LIP, TROPI, CDP, CP #### [facility] [address] [place], [place] [id number] Curtain Stitcher: Dioni Merlos MDUrea nitrogen [Mass/Vol]3 mg/dLLow6-20Bon SecWashington Rural Health Collaborativey HealthComment on above:Performed By: #### CRP, HCG, LIP, TROPI, CDP, CP #### [facility] [address] [place], [place] [phone] Curtain Stitcher: Dioni Merlos [facility] – YUKONBC with Auto Differentialon [id number] (Bld) [#/Vol]0.00 10*3/uLBon Secours Mercy HealthBasophils/100 WBC (Bld)0 %0 - 2 %[facility] HealthEosinophils (Bld) [#/Vol]0.18 10*3/uLBon Secours Mercy HealthEosinophils/100 WBC (Bld)1 %1 - 4 %[facility] Erythrocyte distribution width (RBC) [Ratio]14.5 %High11.8 - 14.4 %[facility] HealthHematocrit (Bld) [Volume fraction]34.5 %Low36.3 - 47.1 %[facility] HealthHemoglobin (Bld) [Mass/Vol]9.5 g/dLLow11.9 - 15.1 g/dLBon Secours Mercy HealthImmature granulocytes (Bld) [#/Vol]0.18 10*3/uLBon Secours Mercy HealthImmature granulocytes/100 WBC (Bld)1 %Liha4Exm [facility] Interpretation and review of laboratory resultsAbnormalBon [facility] Lymphocytes/100 WBC (Bld)5 %Low24 - 43 %[facility] HealthLymphocytes/100 WBC (Bld)0.91 %LowBon Genesis HospitalH (RBC) [Entitic mass]26.9 pg25.2 - 33.5 pgSpotsylvania Regional Medical CenterHC (RBC) [Mass/Vol]27.5 g/dLLow28.4 - 34.8 g/dL Bon Genesis HospitalV (RBC) [Entitic vol]97.7 fL82.6 - 102.9 fLBon Secours Richmond Community HospitalMonocytes/100 WBC (Bld)4 %3 - 12 %[facility] Monocytes/100 WBC (Bld)0.73 %[facility] HospitalMorphology Eliu (Bld) [Interp]NormalBon [facility] North HospitalNeutrophils/100 WBC (Bld)89 %High36 - 65 % Bon [facility] HospitalNucleated RBC/100 WBC (Bld) [Ratio]0.0 %0.0 per 100 WBC [facility] Community HospitalPlatelet mean volume (Bld) [Entitic vol]9.1 fL8.1 - 13.5 fLBon Secours Richmond Community HospitalPlatelets (Bld) [#/Vol]304 10*3/uLBon [facility] HospitalRBC (Bld) [#/Vol]3.53 10*6/uLLow3.95 - 5.11 m/uLBon [facility]ours [facility] Segmented neutrophils/100 WBC (Bld)16.20 %HighBon Secours Richmond Community HospitalWBC other (Bld) [#/Vol]18.2HighBon [facility] North HospitalBon [facility] North HospitalCBC with Diffon [id number]. Basophil0.00 k/uLNormal0.00-0.20[facility] HospitalComment on above:Performed By: #### CRP, HCG, LIP, TROPI, CDP, CP #### [facility] [address] [place] [address] Curtain Stitcher: Ruba Garg.Imm.Granulocyte0.18 k/uLNormal0.00-0.30[facility] HospitalComment on above:Performed By: #### CRP, HCG, LIP, TROPI, CDP, CP #### [facility] [address] [place] [address] Curtain Stitcher: Ruba Garg.Neutrophil (Seg)16.20 k/uLHigh1.50-8.10[facility] HospitalComment on above:Performed By: #### CRP, HCG, LIP, TROPI, CDP, CP #### [place] [address] Curtain Stitcher: Dioni Merlos MDBasophils/100 WBC (Bld)0 %Normal0-2MFremont Memorial HospitalComment on above:Performed By: #### CRP, HCG, LIP, TROPI, CDP, CP #### [place] [address] Curtain Stitcher: Dioni Merlos MDEosinophils (Bld) [#/Vol]0.18 10*3/uLNormal 0.00-0.44[facility] HospitalComment on above:Performed By: #### CRP, HCG, LIP, TROPI, CDP, CP #### [address] [address] Curtain Stitcher: Dioni Merlos MDEosinophils/100 WBC (Bld)1 %Normal1-4[facility] HospitalComment on above:Performed By: #### CRP, HCG, LIP, TROPI, CDP, CP #### [facility] [address] [place] [address] Curtain Stitcher: Johanny Gargmature granulocytes/100 WBC (Bld)1 %Fpkq0VggwwOhio Valley HospitalComment on above:Performed By: #### CRP, HCG, LIP, TROPI, CDP, CP #### [facility] [address] [place] [address] Curtain Stitcher: Dioni Madoff, MDLymphocytes (Bld) [#/Vol]0.91 10*3/uLLow 1.10-3.70[facility] HospitalComment on above:Performed By: #### CRP, HCG, LIP, TROPI, CDP, CP #### [facility] [address] [place] [address] Curtain Stitcher: Dioni Merlos MDLymphocytes/100 WBC (Bld)5 %Fpz12-52VrbkeOhio Valley HospitalComment on above:Performed By: #### CRP, HCG, LIP, TROPI, CDP, CP #### [facility] [address] [place] [address] Curtain Stitcher: JAN Gargonocytes (Bld) [#/Vol]0.73 10*3/uLNormal 0.10-1.20[facility] HospitalComment on above:Performed By: #### CRP, HCG, LIP, TROPI, CDP, CP #### [facility] [address] [place] [address] Curtain Stitcher: JAN Gargonocytes/100 WBC (Bld)4 %Normal3-12[facility] HospitalComment on above:Performed By: #### CRP, HCG, LIP, TROPI, CDP, CP #### [facility] [address] [place] [address] Curtain Stitcher: JAN Gargorphology Eliu (Bld) [Interp]NormalNormalOhio Valley HospitalComment on above:Performed By: #### CRP, HCG, LIP, TROPI, CDP, CP #### [facility] [address] [place] [address] Curtain Stitcher: Dioni Merlos MDNeutrophil (Seg)89 %Rswb65-63NjlbuOhio Valley HospitalComment on above:Performed By: #### CRP, HCG, LIP, TROPI, CDP, CP #### [facility] [address] [place] [address]. [place] [address] Curtain Stitcher: Dioni Merlos MDErythrocyte distribution width (RBC) [Ratio]14.5 %High11.8-14.4[facility] HospitalComment on above:Performed By: #### CRP, HCG, LIP, TROPI, CDP, CP #### [address] [address] Curtain Stitcher: Dioni Merlos MDHematocrit (Bld) [Volume fraction]34.5 %Low 36.3-47.1MFremont Memorial HospitalComment on above:Performed By: #### CRP, HCG, LIP, TROPI, CDP, CP #### [place] [address] Curtain Stitcher: Dioni Merlos MDHemoglobin (Bld) [Mass/Vol]9.5 g/dLLow11.9-15.1 [facility] HospitalComment on above:Performed By: #### CRP, HCG, LIP, TROPI, CDP, CP #### [address] [address] Curtain Stitcher: JAN GargCH (RBC) [Entitic mass]26.9 lhQzfjix33.2-33.5 [facility] HospitalComment on above:Performed By: #### CRP, HCG, LIP, TROPI, CDP, CP #### [place] [address] Curtain Stitcher: JAN GargCHC (RBC) [Mass/Vol]27.5 g/dLLow28.4-34.8[facility] HospitalComment on above:Performed By: #### CRP, HCG, LIP, TROPI, CDP, CP #### [address] [address] Curtain Stitcher: JAN GargCV (RBC) [Entitic vol]97.7 vLRvdxio54.6-102.9 [facility] HospitalComment on above:Performed By: #### CRP, HCG, LIP, TROPI, CDP, CP #### [facility] [address] [place] [address] Curtain Stitcher: GAYATRI Garg Automated0.0 per 100 WBCNormal0.0[facility] HospitalComment on above:Performed By: #### CRP, HCG, LIP, TROPI, CDP, CP #### [facility] [address] [place] [address] Curtain Stitcher: Natalia Garg mean volume (Bld) [Entitic vol]9.1 fL Normal8.1-13.5[facility] HospitalComment on above:Performed By: #### CRP, HCG, LIP, TROPI, CDP, CP #### [facility] [address] [place] [address] Curtain Stitcher: Lionel Garg (Bld) [#/Vol]304 10*3/jBWpanqc429-279 [facility] HospitalComment on above:Performed By: #### CRP, HCG, LIP, TROPI, CDP, CP #### [facility] [address] [place] [address] Curtain Stitcher: FADY Garg (Bld) [#/Vol]3.53 10*6/uLLow3.95-5.11[facility] HospitalComment on above:Performed By: #### CRP, HCG, LIP, TROPI, CDP, CP #### [facility] [address] [place] [address] Curtain Stitcher: GIANNA Garg (Bld) [#/Vol]18.2 10*3/uLHigh3.5-11.3MFremont Memorial HospitalComment on above:Performed By: #### CRP, HCG, LIP, TROPI, CDP, CP #### [facility] [address] [place] [id number] Curtain Stitcher: LUIGI Garg Guidance for drainage of abscess and placement of drainage catheter of Unspecified body regionon 04-02-8867Atyffmvpu Study observation (narrative)Bon [facility] HospitalLactic Acidon 05-03-2024 Interpretation and review of laboratory resultsAbnormalBon [facility] Lactic Acid, Whole Blood0.6 mmol/LLow0.7 - 2.1 mmol/LBon [facility] Hills Surgery CenterLactic Acid,Whole Bl0.6 mmol/LLow0.7-2.1[facility] CenterComment on above:Performed By: #### CRP, HCG, LIP, TROPI, CDP, CP #### [facility] [address] [place] [address] [id number] Curtain Stitcher: Dar Garg Panel Informationon [id number] [facility] HospitalVancomycin Level, Randomon [id number] [Mass/Vol]5.6 ug/mL 5.0 - 40.0 ug/mLBon Secours Richmond Community HospitalComment on above:Higher trough serum vancomycin concentrations of 15-20 ug/mL are recommended for complicated infections such as bacteremia, endocarditis, osteomyelitis, meningitis, and hospital acquired pneumonia. Vancomycin,Randomon 46-32-2778Uccdnhcisn3.6 ug/mLNormal5.0-40.0[facility] HospitalComment on above:Result Comment: Higher trough serum vancomycin concentrations of 15-20 ug/mL are recommended for complicated infections such as bacteremia, endocarditis, osteomyelitis, meningitis, and hospital acquired pneumonia.Performed By: #### CRP, HCG, LIP, TROPI, CDP, CP #### [facility] [address] [place] [address] [phone] Curtain Stitcher: Shlomo Garg Metab w/rfx MGon [id number] gap [Moles/Vol]11 mmol/LNormal9-16Ohio Valley HospitalComment on above: Performed By: #### CBC, LACTIC #### [facility] [place] [address] Curtain Stitcher: Dioni Merlos MDCalcium [Mass/Vol]8.2 mg/dLLow8.6-10.4Ohio Valley HospitalComment on above:Performed By: #### CBC, LACTIC #### [facility] [address] [place] [address] Curtain Stitcher: Dioni Merlos MDChloride [Moles/Vol]99 mmol/ZHwqtjx24-445WhoxeOhio Valley HospitalComment on above:Performed By: #### CBC, LACTIC #### [facility] [address] [place] [address] Curtain Stitcher: Dioni Merlos MDCO2 [Moles/Vol]23 mmol/TSbgaeg34-59AnhdsOhio Valley HospitalComment on above:Performed By: #### CBC, LACTIC #### [facility] [address] [place] [address] Curtain Stitcher: Dioni Merlos MDCreatinine [Mass/Vol]0.5 mg/dLLow0.6-0.9Ohio Valley HospitalComment on above:Performed By: #### CBC, LACTIC #### [facility] [address] [place] [address] Curtain Stitcher: Dioni Merlos MDGFR/1.73 sq M.predicted among non-blacks MDRD (S/P/Bld) [Vol rate/Area]mL/min/{1.73_m2}Normal>60MerKindred HospitalComment on above:Result Comment: These results are not intended for [...] or following therapy that affects renal tubular secretion.Performed By: #### CBC, LACTIC #### [facility] [address] [place] [address] Curtain Stitcher: Dioni Merlos MDGlucose [Mass/Vol]82 mg/mJOuyzpo23-33TdeykFremont Memorial HospitalComment on above:Performed By: #### CBC, LACTIC #### [facility] [address] [place] [address] Curtain Stitcher: RACHID Gargotassium [Moles/Vol]3.4 mmol/LLow3.7-5.3MFremont Memorial HospitalComment on above:Performed By: #### FOZIA, LACTIC #### [facility] [address] [place] [address] Curtain Stitcher: Dioni Merlos MDSodium [Moles/Vol]133 mmol/ZJdi428-315RkgdqOhio Valley HospitalComment on above:Performed By: #### FOZIA, LACTIC #### [address] [address] Curtain Stitcher: Dioni Merlos MDUrea nitrogen [Mass/Vol]3 mg/dLLow6-20Ohio Valley HospitalComment on above:Performed By: #### FOZIA, LACTIC #### [address] [address] Curtain Stitcher: Dioni Merlos MDBapaintsville arh hospital Metabolic Panel w/ Reflex to MGon 32-99-4100Watha gap [Moles/Vol]11 mmol/L9 - 16 mmol/LBon [facility] Calcium [Mass/Vol]8.2 mg/dLLow8.6 - 10.4 mg/dLBon Secours [facility] HealthChloride [Moles/Vol]99 mmol/L98 - 107 mmol/LBon Secours Mansfield HospitalCO2 [Moles/Vol]23 mmol/L20 - 31 mmol/LBon Secours Mansfield HospitalCreatinine [Mass/Vol]0.5 mg/dLLow0.6 - 0.9 mg/dLBon Secours Mansfield HospitalEst, Glom Filt Rate- PINFBon SecWashington Rural Health Collaborativey HealthComment on above: These results are not intended [...] therapy that affects renal tubular secretion. Glucose [Mass/Vol]82 mg/dL74 - 99 mg/dLBon Secours Mercy HealthPotassium [Moles/Vol]3.4 mmol/LLow3.7 - 5.3 mmol/LBon Secours [facility] HealthSodium [Moles/Vol]133 mmol/RDah365 - 145 mmol/LBon Secours Mercy HealthUrea nitrogen [Mass/Vol]3 mg/dLLow6 - 20 mg/dLBon Secours Mercy HealthCBC with Auto Differentialon [id number] (Bld) [#/Vol]0.00 10*3/uLBon Secours Mercy HealthBasophils/100 WBC (Bld)0 %0 - 2 %[facility] HealthEosinophils (Bld) [#/Vol]0.00 10*3/uLBon Secours Mercy HealthEosinophils/100 WBC (Bld)0 %Low1 - 4 %[facility] HealthErythrocyte distribution width (RBC) [Ratio]14.3 %11.8 - 14.4 %[facility] HealthHematocrit (Bld) [Volume fraction]32.6 %Low36.3 - 47.1 %[facility] HealthHemoglobin (Bld) [Mass/Vol]10.4 g/dLLow11.9 - 15.1 g/dLBon Secours Mercy HealthImmature granulocytes (Bld) [#/Vol]0.00 10*3/uL [facility] HealthImmature granulocytes/100 WBC (Bld)0 %0[facility] HealthInterpretation and review of laboratory resultsAbnormalBon Secours Mercy HealthLymphocytes/100 WBC (Bld)7 %Low24 - 44 %[facility] Lymphocytes/100 WBC (Bld)1.60 %[facility] CenterH (RBC) [Entitic mass] 27.9 pg25.2 - 33.5 pgBon Genesis HospitalHC (RBC) [Mass/Vol]31.9 g/dL28.4 - 34.8 g/dLBon Genesis HospitalV (RBC) [Entitic vol]87.4 fL82.6 - 102.9 fL [facility] HospitalMonocytes/100 WBC (Bld)3 %1 - 7 %[facility] HospitalMonocytes/100 WBC (Bld)0.68 %[facility] HospitalMorphology Eliu (Bld) [Interp]NormalBon [facility] North HospitalNeutrophils/100 WBC (Bld)90 %High36 - 66 % [facility] HospitalNucleated RBC/100 WBC (Bld) [Ratio]0.0 %0.0 per 100 WBC [facility] HospitalPlatelet mean volume (Bld) [Entitic vol]9.3 fL8.1 - 13.5 fLBon [facility] North HospitalPlatelets (Bld) [#/Vol]322 10*3/uLBon Secours Richmond Community HospitalRBC (Bld) [#/Vol]3.73 10*6/uLLow3.95 - 5.11 m/[facility] Segmented neutrophils/100 WBC (Bld)20.52 %HighBon Secours Richmond Community HospitalWBC other (Bld) [#/Vol]22.8HighMartinsville Memorial HospitalCBC with Diffon [id number]. Basophil0.00 k/uLNormal0.0-0.2[facility] CenterComment on above:Performed By: #### CBC, LACTIC #### [facility] [address] [place] [address] Curtain Stitcher: Ruba Garg.Imm.Granulocyte0.00 k/uLNormal0.00-0.30[facility] CenterComment on above:Performed By: #### CBC, LACTIC #### [facility] [address] [place] [address] Curtain Stitcher: Ruba Garg.Neutrophil (Seg)20.52 k/uLHigh1.8-7.7Ohio Valley HospitalComment on above:Performed By: #### CBC, LACTIC #### [address] [address] Curtain Stitcher: Dioni Merlos MDBasophils/100 WBC (Bld)0 %Normal0-2MFremont Memorial HospitalComment on above:Performed By: #### CBC, LACTIC #### [address] [address] Curtain Stitcher: Dioni Merlos MDEosinophils (Bld) [#/Vol]0.00 10*3/uLNormal 0.0-0.4Ohio Valley HospitalComment on above:Performed By: #### CBC, LACTIC #### [address] [address] Curtain Stitcher: Dioni Merlos MDEosinophils/100 WBC (Bld)0 %Low1-4Ohio Valley HospitalComment on above:Performed By: #### CBC, LACTIC #### [address] [address] Curtain Stitcher: Roger Garg granulocytes/100 WBC (Bld)0 %Normal0 Ohio Valley HospitalComment on above:Performed By: #### CBC, LACTIC #### [address] [address] Curtain Stitcher: Dioni Merlos MDLymphocytes (Bld) [#/Vol]1.60 10*3/uLNormal 1.0-4.8Ohio Valley HospitalComment on above:Performed By: #### CBC, LACTIC #### [address] [address] Curtain Stitcher: Dioni Merlos MDLymphocytes/100 WBC (Bld)7 %Nnu83-88GfyefOhio Valley HospitalComment on above:Performed By: #### CBC, LACTIC #### [address] [address] Curtain Stitcher: JAN Gargonocytes (Bld) [#/Vol]0.68 10*3/uLNormal0.1-0.8 [facility] HospitalComment on above:Performed By: #### CBC, LACTIC #### [address] [address] Curtain Stitcher: JAN Gargonocytes/100 WBC (Bld)3 %Normal1-7Ohio Valley HospitalComment on above:Performed By: #### CBC, LACTIC #### [place] [address] Curtain Stitcher: JAN Gargorphology Eliu (Bld) [Interp]NormalNormalOhio Valley HospitalComment on above:Performed By: #### CBC, LACTIC #### [address] [address] Curtain Stitcher: Dioni Merlos MDNeutrophil (Seg)90 %Memm13-65WmhwzOhio Valley HospitalComment on above:Performed By: #### CBC, LACTIC #### [address] [address] Curtain Stitcher: Dioni Merlos MDErythrocyte distribution width (RBC) [Ratio]14.3 %Gartak08.8-14.4Ohio Valley HospitalComment on above:Performed By: #### CBC, LACTIC #### [address] [address] Curtain Stitcher: Dioni Merlos MDHematocrit (Bld) [Volume fraction]32.6 %Low 36.3-47.1MercAthens-Limestone Hospital Medical CenterComment on above:Performed By: #### CBC, LACTIC #### [address] [address] Curtain Stitcher: Dioni Merlos MDHemoglobin (Bld) [Mass/Vol]10.4 g/dLLow11.9-15.1 [facility] Valley HospitalComment on above:Performed By: #### CBC, LACTIC #### [place] [address] Curtain Stitcher: JAN GargCH (RBC) [Entitic mass]27.9 iwGiohrr21.2-33.5 [facility] HospitalComment on above:Performed By: #### CBC, LACTIC #### [place] [address] Curtain Stitcher: JAN GargCHC (RBC) [Mass/Vol]31.9 g/pVWszhdv78.4-34.8 [facility] HospitalComment on above:Performed By: #### CBC, LACTIC #### [place] [address] Curtain Stitcher: JAN GargCV (RBC) [Entitic vol]87.4 jGLbxxco80.6-102.9 [facility] Valley HospitalComment on above:Performed By: #### CBC, LACTIC #### [place] [address] Curtain Stitcher: Dioni Merlos MDNRBC Automated0.0 per 100 WBCNormal0.0Ohio Valley HospitalComment on above:Performed By: #### CBC, LACTIC #### [place] [address] Curtain Stitcher: RACHID Garglatelet mean volume (Bld) [Entitic vol]9.3 fL Normal8.1-13.5Ohio Valley HospitalComment on above:Performed By: #### CBC, LACTIC #### [facility] [address] [place] [address] Curtain Stitcher: Lionel Garg (Bld) [#/Vol]322 10*3/gVIoavag808-026 [facility] Valley HospitalComment on above:Performed By: #### CBC, LACTIC #### [facility] [place] [address] Curtain Stitcher: Dioni Merlos MDRBC (Bld) [#/Vol]3.73 10*6/uLLow3.95-5.11Ohio Valley HospitalComment on above:Performed By: #### CBC, LACTIC #### [facility] [address] [place] [address] Curtain Stitcher: GIANNA Garg (Bld) [#/Vol]22.8 10*3/uLHigh3.5-11.3MFremont Memorial HospitalComment on above:Performed By: #### CBC, LACTIC #### [facility] [address] [place] [address] Curtain Stitcher: LUIGI Garg ABDOMEN PELVIS W IV CONTRASTon 66-66-1535ZB ABDOMEN PELVIS W IV CONTRASTEXAMINATION: CT OF THE ABDOMEN AND PELVIS WITH [...] Signed by: Kiko Alba MD 05/02/24 Final resultNormalMercy Rancho Springs Medical CenterCT Abdomen and Pelvis W contrast Bette . Unchanged appearance of active Crohn's disease with complex multiloculated abscess without definite fistula seen on this examination. Partial small bowel obstruction given dilated proximal bowel MHPN RIS CONSOLIDATEDEXAMINATION: CT OF THE ABDOMEN AND PELVIS WITH [...] lesion Vasculature: No aneurysm Other: None MHPN Kiko Mckeon MD - 05/02/2024 EXAMINATION: CT OF THE [...] small bowel obstruction given dilated proximal bowel PlaysinoRadiology Study observation (narrative)PlaysinoCT Abdomen and Pelvis W contrast IVOrdered By: Kiko Alba on 74-85-3025[employer] Phone: ekg 12 LeadOrdered By: Rashid Gamez on 61-60-0630Tuospu [id number] [employer]. Phone: P Nyjy65lgxaapzVupThe [employer] Phone: P-R [id number] [employer] Phone: Q-T [id number] [employer] Phone: QRS [id number] [employer] Phone: QTc Calculation (Lucas)461 [employer] Phone: R [id number] Phone: T [id number] [employer] Work Phone: Ventricular [id number] [employer] Work Phone: Bon [employer] Work Phone: EKG 12 Leadon 88-64-9431Kwzza tachycardia Otherwise normal ECG When compared with ECG of 22-NOV-2023 05:17, Vent. rate has increased BY 50 BPMMHPN STRashid Mejia MD - 05/02/2024 Sinus tachycardia Otherwise normal ECG When compared with ECG of 22-NOV-2023 05:17, Vent. rate has increased BY 50 BPM Bon [facility] Health VenturesHepatic Function Panelon 69-08-4009Ytekynk [Mass/Vol]2.8 g/dLLow3.5 - 5.2 g/dLBon [facility] Health VenturesAlbumin/Globulin [Mass ratio]1.0 {ratio}1.0 - 2.5Bon [facility] Health VenturesALP [Catalytic activity/Vol]78 U/L35 - 104 U/LBon [facility] Health VenturesALT [Catalytic activity/Vol]8 U/LLow10 - 35 U/L [facility] Health VenturesAST [Catalytic activity/Vol]11 U/L10 - 35 U/LBon [facility] Health VenturesBilirubin [Mass/Vol]0.7 mg/dL0.0 - 1.2 mg/dLBon [employer] Bilirubin.direct [Mass/Vol]0.4 mg/dLHigh0.0 - 0.2 mg/dLBon [employer] Bilirubin.indirect [Mass/Vol]0.3 mg/dL0.0 - 1.0 mg/dLBon [employer] Globulin (S) [Mass/Vol]3.0 g/dLBon [facility] VenturesProtein [Mass/Vol]5.8 g/dLLow6.6 - 8.7 g/dLBon Bladder Health VenturesK (Potassium)on 33-40-2448Awwguqqig [Moles/Vol]3.5 mmol/LLow3.7-5.3[facility] Springs Medical CenterComment on above:Performed By: #### CBC, LACTIC #### [facility] [address] [place] [address] Curtain Stitcher: Juliet Gargctic Acidon 90-66-5860Jmzlwp Acid, Whole Blood 0.8 mmol/L0.7 - 2.1 mmol/LBon [facility] Hills Surgery CenterLactic Acid,Whole Bl0.8 mmol/LNormal0.7-2.1MFremont Memorial HospitalComment on above:Performed By: #### CRP #### [facility] [address] [place] [address] Curtain Stitcher: Dioni Merlos MDLactic Acid, Whole Blood0.8 mmol/L0.7 - 2.1 mmol/LBon [facility] Surgery CenterLactic Acid,Whole Bl0.8 mmol/LNormal0.7-2.1MFremont Memorial HospitalComment on above:Performed By: #### CRP, HCG, LIP, TROPI, CDP, CP #### [facility] [address] [place] [address] [id number] Curtain Stitcher: Dioni Merlos MDLactic Acid, Whole Blood0.7 mmol/L0.7 - 2.1 mmol/LBon [facility] Surgery CenterLactic Acid,Whole Bl0.7 mmol/LNormal0.7-2.1MFremont Memorial HospitalComment on above:Performed By: #### CRP #### [facility] [address] [place] [address] Curtain Stitcher: Dioni Merlos MDLiver Profileon 87-93-5712Jtenowx [Mass/Vol]2.8 g/dLLow3.5-5.2MFremont Memorial HospitalComment on above:Performed By: #### CBC, LACTIC #### [facility] [address] [place] [address] [phone] Curtain Stitcher: Dioni Merlos MDAlbumin/Glob Ratio1.4Bpiwfj5.0-2.5Ohio Valley HospitalComment on above:Performed By: #### CBC, LACTIC #### [facility] [address] [place] [address] Curtain Stitcher: Dioni Merlos MDAlkagovind Phos78 U/RHhaehq57-031JopjwOhio Valley HospitalComment on above:Performed By: #### CBC, LACTIC #### [facility] [address] [place] [address] Curtain Stitcher: Dioni Merlos MDALT [Catalytic activity/Vol]8 U/FXxz04-80XaevhOhio Valley HospitalComment on above:Performed By: #### CBC, LACTIC #### [facility] [address] [place] [address] Curtain Stitcher: Dioni Merlos MDAST [Catalytic activity/Vol]11 U/BOzhklw55-58 [facility] HospitalComment on above:Performed By: #### CBC, LACTIC #### [facility] [address] [place] [address] Curtain Stitcher: Dioni Merlos MDBilirubin [Mass/Vol]0.7 mg/dLNormal0.0-1.2MFremont Memorial HospitalComment on above:Performed By: #### CBC, LACTIC #### [facility] [address] [place] [address] Curtain Stitcher: Dioni Merlos MDBilirubin, Indirect0.3 mg/dLNormal0.0-1.0[facility] Valley HospitalComment on above:Performed By: #### CBC, LACTIC #### [facility] [address] [place] [address] Curtain Stitcher: Edie Gargirubin.indirect [Mass/Vol]0.4 mg/dLHigh 0.0-0.2MFremont Memorial HospitalComment on above:Performed By: #### CBC, LACTIC #### [facility] [place] [address] Curtain Stitcher: Dioni Merlos MDGlobulin (S) [Mass/Vol]3.0 g/dLNoalOhio Valley HospitalComment on above:Performed By: #### CBC, LACTIC #### [facility] [address] [place] [address] Curtain Stitcher: RACHID Gargrotein [Mass/Vol]5.8 g/dLLow6.6-8.7Ohio Valley HospitalComment on above:Performed By: #### FOZIA, LACTIC #### [facility] [address] [place] [address] Curtain Stitcher: Chris Garggnesiumon 27-10-6629Hcjnwpcvqjghnp and review of laboratory resultsAbnoSentara Halifax Regional HospitalMagnesium [Mass/Vol]1.5 mg/dLLow1.6 - 2.6 mg/dLBon [facility] Surgery CenterMagnesium [Mass/Vol]1.5 mg/dLLow1.6-2.6[facility] Medical CenterComment on above: Performed By: #### CBC, LACTIC #### [facility] [address] [place] [address] Curtain Stitcher: Dioni Merlos MD Panel Informationon 95-20-6441Qsbytbvvxvajfd and review of laboratory resultsAbBlack Hills Medical Center 21-27-9665SDR Coag (PPP) [Relative time]1.2 {INR}NormalOhio Valley HospitalComment on above:Result Comment: Therapeutic Range: Moderate Anticoagulant Intensity: INR = 2.0-3.0 High Anticoagulant Intensity: INR = 2.5-3.5Performed By: #### CBC, LACTIC #### [facility] [address] [place] [address] [phone] Curtain Stitcher: RACHID GargT Coag (PPP) [Time]15.4 sHigh11.7-14.9[facility]eler Medical CenterComment on above:Performed By: #### CBC, LACTIC #### [facility] [address] [place] [address] Curtain Stitcher: RACHID Gargotassiumon 32-15-5776Daiianuuqpsufx and review of laboratory resultsAbnormCarilion Roanoke Community HospitalPotassium [Moles/Vol]3.5 mmol/LLow3.7 - 5.3 mmol/LBon [facility] Protime-INRon [id number] Coag (PPP) [Relative time]1.2 {INR}[facility] HospitalComment on above: Therapeutic Range: Moderate Anticoagulant Intensity: INR = 2.0-3.0 High Anticoagulant Intensity: INR = 2.5-3.5 Interpretation and review of laboratory resultsAbnormCarilion Roanoke Community Hospital PT Coag (PPP) [Time]15.4 sHighBon [facility] CBC with Auto Differentialon 77-78-5513Wsimeauuo (Bld) [#/Vol]0.00 10*3/uLBon [facility] North HospitalBasophils/100 WBC (Bld)0 %0 - 2 %[facility] Eosinophils (Bld) [#/Vol]0.00 10*3/uLBon [facility] HospitalEosinophils/100 WBC (Bld)0 %Low1 - 4 %[facility] HospitalErythrocyte distribution width (RBC) [Ratio]14.6 %High11.8 - 14.4 %[facility] HospitalHematocrit (Bld) [Volume fraction]40.1 %36.3 - 47.1 %[facility] HospitalHemoglobin (Bld) [Mass/Vol] 12.7 g/dL11.9 - 15.1 g/dLBon [facility] North HospitalImmature granulocytes (Bld) [#/Vol]0.00 10*3/uLBon [facility] North HospitalImmature granulocytes/100 WBC (Bld)0 %0Bon [facility] HospitalInterpretation and review of laboratory results AbnormalBon [facility] North HospitalLymphocytes/100 WBC (Bld)10 %Low24 - 44 %Bon SecSelect Medical Specialty Hospital - TrumbullLymphocytes/100 WBC (Bld)2.51 %Bon Genesis HospitalH (RBC) [Entitic mass]27.3 pg25.2 - 33.5 pgBon Genesis HospitalHC (RBC) [Mass/Vol]31.7 g/dL28.4 - 34.8 g/dLBon SecCleveland Clinic Children's Hospital for RehabilitationV (RBC) [Entitic vol]86.2 fL82.6 - 102.9 fLBon [facility] North HospitalMonocytes/100 WBC (Bld)4 %1 - 7 %Bon SecSelect Medical Specialty Hospital - TrumbullMonocytes/100 WBC (Bld)1.00 %HighBon Secours Richmond Community HospitalMorphology Eliu (Bld) [Interp]NormalBon SecSelect Medical Specialty Hospital - TrumbullNeutrophils/100 WBC (Bld)86 %High36 - 66 %Bon [facility] HospitalNucleated RBC/100 WBC (Bld) [Ratio]0.0 %0.[address] [facility] HealthPlatelet mean volume (Bld) [Entitic vol]9.7 fL8.1 - 13.5 fLBon SecWomen's and Children's Hospital HealthPlatelets (Bld) [#/Vol] 469 10*3/uLHighBon [facility] HospitalRBC (Bld) [#/Vol]4.65 10*6/uL3.95 - 5.11 m/uLBon [facility] HospitalSegmented neutrophils/100 WBC (Bld)21.59 %HighBon Secours Richmond Community HospitalWBC other (Bld) [#/Vol]25.1HighBon SecSt. Joseph's Regional Medical Center– MilwaukeeCBC with Diffon 18-15-2462Aez. Basophil0.00 k/uLNormal 0.0-0.2[facility] Medical CenterComment on above:Performed By: #### CRP, HCG, LIP, TROPI, CDP, CP #### [facility] [place] [address] Curtain Stitcher: Ruba Garg.Imm.Granulocyte0.00 k/uLNormal0.00-0.30[facility] Valley HospitalComment on above:Performed By: #### CRP, HCG, LIP, TROPI, CDP, CP #### [facility] [address] [place] [address] Curtain Stitcher: Ruba Garg.Neutrophil (Seg)21.59 k/uLHigh1.8-7.7Ohio Valley HospitalComment on above:Performed By: #### CRP, HCG, LIP, TROPI, CDP, CP #### [facility] [address] [place] [address] Curtain Stitcher: Dioni Merlos MDBasophils/100 WBC (Bld)0 %Normal0-2MFremont Memorial HospitalComment on above:Performed By: #### CRP, HCG, LIP, TROPI, CDP, CP #### [place] [address] Curtain Stitcher: Dioni Merlos MDEosinophils (Bld) [#/Vol]0.00 10*3/uLNormal 0.0-0.4[facility] HospitalComment on above:Performed By: #### CRP, HCG, LIP, TROPI, CDP, CP #### [facility] [address] [place] [address] Curtain Stitcher: Dioni Merlos MDEosinophils/100 WBC (Bld)0 %Low1-4[facility] HospitalComment on above:Performed By: #### CRP, HCG, LIP, TROPI, CDP, CP #### [facility] [address] [place] [address] Curtain Stitcher: Mayra Gargture granulocytes/100 WBC (Bld)0 %Normal0 [facility] HospitalComment on above:Performed By: #### CRP, HCG, LIP, TROPI, CDP, CP #### [facility] [address] [place] [address] Curtain Stitcher: Dioni Merlos MDLymphocytes (Bld) [#/Vol]2.51 10*3/uLNormal 1.0-4.8[facility] HospitalComment on above:Performed By: #### CRP, HCG, LIP, TROPI, CDP, CP #### [facility] [address] [place] [address] Curtain Stitcher: Dioni Merlos MDLymphocytes/100 WBC (Bld)10 %Kza00-39AyzehOhio Valley HospitalComment on above:Performed By: #### CRP, HCG, LIP, TROPI, CDP, CP #### [facility] [address] [place] [address] Curtain Stitcher: JAN Gargonocytes (Bld) [#/Vol]1.00 10*3/uLHigh0.1-0.8 [facility] HospitalComment on above:Performed By: #### CRP, HCG, LIP, TROPI, CDP, CP #### [facility] [address] [place] [address] Curtain Stitcher: JAN Gargonocytes/100 WBC (Bld)4 %Normal1-7Ohio Valley HospitalComment on above:Performed By: #### CRP, HCG, LIP, TROPI, CDP, CP #### [facility] [address] [place] [address] Curtain Stitcher: JAN Gargorphology Eliu (Bld) [Interp]NormalNormalOhio Valley HospitalComment on above:Performed By: #### CRP, HCG, LIP, TROPI, CDP, CP #### [facility] [address] [place] [address] Curtain Stitcher: Dioni Merlos MDNeutrophil (Seg)86 %Ilct72-26BrgjyOhio Valley HospitalComment on above:Performed By: #### CRP, HCG, LIP, TROPI, CDP, CP #### [facility] [address] [place] [address] Curtain Stitcher: Dioni Merlos MDErythrocyte distribution width (RBC) [Ratio]14.6 %High11.8-14.4[facility] HospitalComment on above:Performed By: #### CRP, HCG, LIP, TROPI, CDP, CP #### [address] [address] Curtain Stitcher: Dioni Merlos MDHematocrit (Bld) [Volume fraction]40.1 %Normal 36.3-47.1MFremont Memorial HospitalComment on above:Performed By: #### CRP, HCG, LIP, TROPI, CDP, CP #### [address] [address] Curtain Stitcher: Dioni Merlos MDHemoglobin (Bld) [Mass/Vol]12.7 g/dLNormal 11.9-15.1MFremont Memorial HospitalComment on above:Performed By: #### CRP, HCG, LIP, TROPI, CDP, CP #### [address] [address] Curtain Stitcher: JAN GargCH (RBC) [Entitic mass]27.3 xaDfucgx64.2-33.5 [facility] HospitalComment on above:Performed By: #### CRP, HCG, LIP, TROPI, CDP, CP #### [address] [address] Curtain Stitcher: JAN GargCHC (RBC) [Mass/Vol]31.7 g/lGPrrfon10.4-34.8 [facility] HospitalComment on above:Performed By: #### CRP, HCG, LIP, TROPI, CDP, CP #### [facility] [address] [place] [address] Curtain Stitcher: JAN GargCV (RBC) [Entitic vol]86.2 nKFjoypn06.6-102.9 [facility] HospitalComment on above:Performed By: #### CRP, HCG, LIP, TROPI, CDP, CP #### [address] [address] Curtain Stitcher: GAYATRI Garg Automated0.0 per 100 WBCNormal0.0Ohio Valley HospitalComment on above:Performed By: #### CRP, HCG, LIP, TROPI, CDP, CP #### [address] [address] Curtain Stitcher: Natalia Garg mean volume (Bld) [Entitic vol]9.7 fL Normal8.1-13.5Ohio Valley HospitalComment on above:Performed By: #### CRP, HCG, LIP, TROPI, CDP, CP #### [facility] [address] [place] [address] Curtain Stitcher: Lionel Garg (Bld) [#/Vol]469 10*3/uAWwfa392-539 [facility] HospitalComment on above:Performed By: #### CRP, HCG, LIP, TROPI, CDP, CP #### [address] [address] Curtain Stitcher: THEODORE GargBC (Bld) [#/Vol]4.65 10*6/uLNormal3.95-5.11 [facility] HospitalComment on above:Performed By: #### CRP, HCG, LIP, TROPI, CDP, CP #### [address] [address] Curtain Stitcher: GIANNA Garg (Bld) [#/Vol]25.1 10*3/uLHigh3.5-11.3[facility]eler Medical CenterComment on above:Performed By: #### CRP, HCG, LIP, TROPI, CDP, CP #### [facility] [address] [phone] Curtain Stitcher: Dioni Merlos, MDCT ABDOMEN PELVIS W IV CONTRASTon [id number] ABDOMEN PELVIS W IV CONTRASTEXAMINATION: CT OF THE ABDOMEN AND PELVIS WITH [...] Signed by: Shayna Quiles MD 05/01/24 Final resultNormalOhio Valley HospitalCT Abdomen and Pelvis W contrast Bette [id number] compatible with active Crohn's disease with complex [...] attention to on follow-up imaging is recommended. [facility] RIS CONSOLIDATEDEXAMINATION: CT OF THE ABDOMEN AND PELVIS WITH [...] findings do not require dedicated imaging follow-up. Shayna Goodwin MD - 05/01/2024 EXAMINATION: CT OF THE [...] attention to on follow-up imaging is recommended. [facility] Health VenturesRadiology Study observation (narrative)PlaysinoMO Abdomen and Pelvis W contrast IVOrdered By: Shayna Quiles on 05-01-2024 [facility] [employer] Work Phone: Comp Metabolic Profon [id number] [Mass/Vol]3.7 g/dLNormal3.5-5.2[facility] Springs Medical CenterComment on above:Performed By: #### CRP, HCG, LIP, TROPI, CDP, CP #### [facility] [address] [place] [address] [phone] Curtain Stitcher: Dioni Merlos, MDAlbumin/Glob Ratio1.6Zhmthk0.0-2.5Ohio Valley HospitalComment on above:Performed By: #### CRP, HCG, LIP, TROPI, CDP, CP #### [facility] [address] [place] [address] [phone] Curtain Stitcher: Kelvin Gargkaline Stzl790 U/KSylr88-231SyudoOhio Valley HospitalComment on above:Performed By: #### CRP, HCG, LIP, TROPI, CDP, CP #### [address] [address] Curtain Stitcher: Dioni Merlos MDALT [Catalytic activity/Vol]14 U/RLhlxch61-31 Ohio Valley HospitalComment on above:Performed By: #### CRP, HCG, LIP, TROPI, CDP, CP #### [address] [address] Curtain Stitcher: Dioni Merlos MDAnion gap [Moles/Vol]16 mmol/LNormal9-16Ohio Valley HospitalComment on above:Performed By: #### CRP, HCG, LIP, TROPI, CDP, CP #### [address] [address] Curtain Stitcher: Dioni Merlos MDAST [Catalytic activity/Vol]19 U/IIpccid31-34 [facility] Valley HospitalComment on above:Performed By: #### CRP, HCG, LIP, TROPI, CDP, CP #### [address] [address] Curtain Stitcher: Dioni Merlos MDBilirubin [Mass/Vol]0.5 mg/dLNormal0.00-1.20 [facility] HospitalComment on above:Performed By: #### CRP, HCG, LIP, TROPI, CDP, CP #### [address] [address] Curtain Stitcher: Dioni Merlos MDCalcium [Mass/Vol]9.3 mg/dLNormal8.6-10.4Ohio Valley HospitalComment on above:Performed By: #### CRP, HCG, LIP, TROPI, CDP, CP #### [address] [address] Curtain Stitcher: Dioni Merlos MDChloride [Moles/Vol]94 mmol/VQbn45-032YlzyfOhio Valley HospitalComment on above:Performed By: #### CRP, HCG, LIP, TROPI, CDP, CP #### [facility] [address] [place] [address] Curtain Stitcher: NAGIE GargO2 [Moles/Vol]26 mmol/MJhqfyb78-95JveqpOhio Valley HospitalComment on above:Performed By: #### CRP, HCG, LIP, TROPI, CDP, CP #### [place] [address] Curtain Stitcher: ANGIE Gargreatinine [Mass/Vol]0.7 mg/dLNormal0.50-0.90 [facility] Valley HospitalComment on above:Performed By: #### CRP, HCG, LIP, TROPI, CDP, CP #### [address] [address] Curtain Stitcher: Dioni Merlos MDGFR/1.73 sq M.predicted among non-blacks MDRD (S/P/Bld) [Vol rate/Area]mL/min/{1.73_m2}Normal>60Ohio Valley HospitalComment on above:Result Comment: These results are not intended for [...] or following therapy that affects renal tubular secretion.Performed By: #### CRP, HCG, LIP, TROPI, CDP, CP #### [facility] [address] [place] [address] Curtain Stitcher: Dioni Merlos MDGlucose [Mass/Vol]129 mg/qSZchd94-07SysqlFremont Memorial HospitalComment on above:Performed By: #### CRP, HCG, LIP, TROPI, CDP, CP #### [facility] [address] [place] [address] Curtain Stitcher: RACHID Gargotassium [Moles/Vol]3.0 mmol/LLow3.7-5.3MFremont Memorial HospitalComment on above:Result Comment: SPECIMEN SLIGHTLY HEMOLYZED, RESULTS MAY BE ADVERSELY AFFECTED.Performed By: #### CRP, HCG, LIP, TROPI, CDP, CP #### [facility] [address] [place] [address] Curtain Stitcher: Dioni Merlos MDProtein [Mass/Vol]7.7 g/dLNormal6.6-8.7Ohio Valley HospitalComment on above:Performed By: #### CRP, HCG, LIP, TROPI, CDP, CP #### [facility] [address] [place] [address] Curtain Stitcher: Dioni Merlos MDSodium [Moles/Vol]136 mmol/ZRacczu675-328HgiwjOhio Valley HospitalComment on above:Performed By: #### CRP, HCG, LIP, TROPI, CDP, CP #### [facility] [address] [place] [address] Curtain Stitcher: Dioni Merlos MDUrea nitrogen [Mass/Vol]3 mg/dLLow6-20Ohio Valley HospitalComment on above:Performed By: #### CRP, HCG, LIP, TROPI, CDP, CP #### [facility] [address] [place] [address] Curtain Stitcher: Dioni Merlos [facility] YUKONomprehensive Metabolic Panelon 05-01-2024 Albumin [Mass/Vol]3.7 g/dL3.5 - 5.2 g/dLBon Bethesda North HospitalAlbumin/Globulin [Mass ratio]1.0 {ratio}1.0 - 2.5Bon [facility] North HospitalALP [Catalytic activity/Vol]117 U/LHigh35 - 104 U/LBon [facility] North HospitalALT [Catalytic activity/Vol]14 U/L10 - 35 U/LBon [facility] North HospitalAnion gap [Moles/Vol]16 mmol/L9 - 16 mmol/LBon [facility] Data3SixtyAST [Catalytic activity/Vol]19 U/L10 - 35 U/LBon [facility] Data3SixtyBilirubin [Mass/Vol]0.5 mg/dL0.00 - 1.20 mg/dL Bon [facility] Mee Memorial HospitalBehalfCalcium [Mass/Vol]9.3 mg/dL8.6 - 10.4 mg/dLBon [facility] Data3SixtyChloride [Moles/Vol]94 mmol/LLow98 - 107 mmol/LBon [facility] Data3SixtyCO2 [Moles/Vol]26 mmol/L20 - 31 mmol/LBon [facility] Data3SixtyCreatinine [Mass/Vol]0.7 mg/dL0.50 - 0.90 mg/dLBon [facility] Data3SixtyEst, Glom Filt Rate- PINFBon George L. Mee Memorial HospitalBehalfComment on above: These results are not intended [...] therapy that affects renal tubular secretion. Glucose [Mass/Vol]129 mg/qRMlbg97 - 99 mg/dLBon George L. Mee Memorial HospitalBehalf Interpretation and review of laboratory resultsAbnormalBon [facility] Potassium [Moles/Vol]3.0 mmol/LLow3.7 - 5.3 mmol/LBon [facility] Data3Sixty Comment on above:SPECIMEN SLIGHTLY HEMOLYZED, RESULTS MAY BE ADVERSELY AFFECTED. Protein [Mass/Vol]7.7 g/dL6.6 - 8.7 g/dLBon [facility] Data3SixtySodium [Moles/Vol]136 mmol/L136 - 145 mmol/LBon Valleywise Health Medical CenterLight Sciences OncologyUrea nitrogen [Mass/Vol]3 mg/dLLow6 - 20 mg/dLBon [facility] Data3SixtyHCG Qualitative, Serumon 28-99-4822IWD ( test) QlNegativeNEGATIVEBath Community HospitalBehalf Comment on above:Specimens with hCG levels near the threshold of the test (25 mIU/mL) may give a negative or indeterminate result. In such cases, another test should be performed with a new specimen in 48-72 hours. If early is suspected clinically in this setting, correlation with quantitative serum b-hCG level is suggested. [facility] has confirmed the use of plasma for this test. This has not been cleared or approved by the U.S. Food and Drug Administration. The FDA has determined that such clearance is not necessary. Bon [facility]hes[facility] North HospitalHCG Screen, Bloodon 28-47-5634NYF Screen, BloodNegative NormalNEGMercy Rancho Springs Medical CenterComment on above:Result Comment: Specimens with hCG levels near the threshold of the test (25 mIU/mL) may give a negative or indeterminate result. In such cases, another test should be performed with a new specimen in 48-72 hours. If early is suspected clinically in this setting, correlation with quantitative serum b-hCG level is suggested. [facility] has confirmed the use of plasma for this test. This has not been cleared or approved by the U.S. Food and Drug Administration. The FDA has determined that such clearance is not necessary.Performed By: #### CRP, HCG, LIP, TROPI, CDP, CP #### [facility] [address] [place] [address] Curtain Stitcher: Dioni Merlos MDLactic Acidon 57-64-4360[place] Acid, Whole Blood 0.9 mmol/L0.7 - 2.1 mmol/LBon [facility] Hills Surgery CenterLactic Acid,Whole Bl0.9 mmol/LNormal0.7-2.1MFremont Memorial HospitalComment on above:Performed By: #### LACTIC #### [facility] [address] [place] [address] Curtain Stitcher: Dioni Merlos MDInterpretation and review of laboratory results AbnormalBon [facility] North HospitalLactic Acid, Whole Blood2.4 mmol/LHigh0.7 - 2.1 mmol/LBon [facility] Hills Surgery CenterLactic Acid,Whole Bl2.4 mmol/LHigh0.7-2.1MercTustin Rehabilitation HospitalComment on above:Performed By: #### CRP, HCG, LIP, TROPI, CDP, CP #### [facility] [address] [place] [address] [phone] Curtain Stitcher: Dioni Merlos MDLipaseon 08-77-1664Ulhqhn [Catalytic activity/Vol]20 U/L13 - 60 U/LBon Secsaint francis healthcare Porch HealthLipase [Catalytic activity/Vol]20 U/FUdlapp88-74WyqnfKindred HospitalComment on above: Performed By: #### CRP, HCG, LIP, TROPI, CDP, CP #### [facility] [address] [place] [address] [phone] Curtain Stitcher: JAN Gargicroscopic Urinalysison 23-72-9010Nseiznub LM Ql (Urine sed)NoneNoneBon [facility] Data3SixtyCasts LM.LPF (Urine sed) [#/Area] None Reference range defined for non-centrifuged specimen.Bon [facility] Data3SixtyEpithelial cells LM.HPF (Urine sed) [#/Area]5 TO 10Bon Valleywise Health Medical CenterLight Sciences OncologyRBC LM.HPF (Urine sed) [#/Area]2 TO 5Bon [facility] Data3SixtyComment on above:Reference range defined for non-centrifuged specimen.WBC LM.HPF (Urine sed) [#/Area]5 TO 10Bon [facility] Data3SixtyBon SecMyAGENT HealthNo Panel Informationon 76-80-3429Php [facility] Data3SixtyUA w/Reflex Cultureon 05-01-2024 Bilirubin, SemiQt,UrNegativeNormalNEGMerKindred HospitalComment on above:Performed By: #### CRP, HCG, LIP, TROPI, CDP, CP #### [facility] [address] [place] [address] [phone] Curtain Stitcher: Dioni Merlos MDBlalia, UrineTRACEAbnormalNEGOhio Valley HospitalComment on above:Performed By: #### CRP, HCG, LIP, TROPI, CDP, CP #### [facility] [address] [place] [address] [phone] Curtain Stitcher: ANGIE Garglarity (U)ClearNormalCLEARMercy Rancho Springs Medical CenterComment on above:Performed By: #### CRP, HCG, LIP, TROPI, CDP, CP #### [facility] [address] [place] [address] Curtain Stitcher: ANGIE Gargolor (U)YellowNormalYELMercy Rancho Springs Medical CenterComment on above:Performed By: #### CRP, HCG, LIP, TROPI, CDP, CP #### [facility] [address] [place] [address] Curtain Stitcher: Dioni Merlos MDGlucose Ql (U)NegativeNormalNEGMerKindred HospitalComment on above:Performed By: #### CRP, HCG, LIP, TROPI, CDP, CP #### [facility] [address] [place] [address] Curtain Stitcher: Dioni Merlos MDKetones Ql (U)NegativeNormalNEGMerKindred HospitalComment on above:Performed By: #### CRP, HCG, LIP, TROPI, CDP, CP #### [facility] [address] [place] [address] Curtain Stitcher: Dioni Merlos MDLeukocyte esterase Test strip Ql (U)SMALL AbnormalNEGOhio Valley HospitalComment on above:Performed By: #### CRP, HCG, LIP, TROPI, CDP, CP #### [facility] [address] [place] [address] Curtain Stitcher: Dioni Merlos MDNitrite,UrNegativeNormalNEGOhio Valley HospitalComment on above:Performed By: #### CRP, HCG, LIP, TROPI, CDP, CP #### [facility] [address] [place] [address] Curtain Stitcher: Dioni Merlos [facility],Ur6.2Ymdfbd9.0-8.0Ohio Valley HospitalComment on above:Performed By: #### CRP, HCG, LIP, TROPI, CDP, CP #### [facility] [place] [address] Curtain Stitcher: RACHID Gargrotein Ql (U)NegativeNormalNEGOhio Valley HospitalComment on above:Performed By: #### CRP, HCG, LIP, TROPI, CDP, CP #### [facility] [address] [place] [address] Curtain Stitcher: Shy Garg. Plummer,Ur1.566Naif7.005-1.030Ohio Valley HospitalComment on above:Performed By: #### CRP, HCG, LIP, TROPI, CDP, CP #### [facility] [address] [place] [address] Curtain Stitcher: Dyan Gargbilinogen,UrNormalNormal0.0-1.0Ohio Valley HospitalComment on above:Performed By: #### CRP, HCG, LIP, TROPI, CDP, CP #### [facility] [address] [place] [address] Curtain Stitcher: KIN Garg DUP ABD PEL RETRO SCROT LIMITEDon 05-01-2024 US DUP ABD PEL RETRO SCROT LIMITEDEXAMINATION: PELVIC ULTRASOUND 05/01/2024 TECHNIQUE: Transvaginal pelvic ultrasound was performed. COMPARISON: None . 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 Interpreted by: Cristóbal Qiu MD Preliminary resultNormAultman Orrville HospitalUS NON OB TRANSVAGINALon [id number] NON OB TRANSVAGINALEXAMINATION: PELVIC ULTRASOUND 05/01/2024 TECHNIQUE: Transvaginal pelvic ultrasound was performed. COMPARISON: None. 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 Interpreted by: Cristóbal Qui MD Signed by: Cristóbal Qiu MD 05/01/24 Final resultNormAultman Orrville HospitalUS Pelvis transvaginalon . Right ovarian 5.5 cm simple cystic structure most compatible with dominant follicle. 2. Otherwise, unremarkable pelvic ultrasound. RECOMMENDATIONS: Pathology: Right ovarian probable benign cyst measuring 5.4 cm.Recommend follow-up pelvic ultrasound in 3-6 months. [facility] RIS CONSOLIDATEDEXAMINATION: PELVIC ULTRASOUND 05/01/2024 TECHNIQUE: Transvaginal pelvic ultrasound was performed. COMPARISON: None. 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 Cristóbal Anderson MD - 05/01/2024 EXAMINATION: PELVIC ULTRASOUND 05/01/2024 TECHNIQUE: Transvaginal pelvic ultrasound was performed. COMPARISON: None. 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 [facility] HospitalRadiology Study observation (narrative)[facility] HospitalUrinalysis with Reflex to Cultureon 02-03-9268Wzmjmqlmj Ql (U)NegativeNEGATIVEBon Secours Richmond Community HospitalClarity (U) ClearClearBon [facility] HealthColor (U)YellowYellowBon [facility]ours [facility] Hospital Glucose Test strip (U) [Mass/Vol]NegativeNEGATIVE mg/dLBon [facility] Hemoglobin Auto test strip Ql (U)TRACEAbnormalNEGATIVEBon [facility] Interpretation and review of laboratory resultsAbnormalBon [facility] Ketones (U) [Mass/Vol]NegativeNEGATIVE mg/dLBon [facility] HospitalLeukocyte esterase Test strip Ql (U)SMALLAbnormalNEGATIVEBon [facility] HospitalNitrite Ql (U)NegativeNEGATIVEBon [facility] North HospitalpH (U)6.5 [pH]5.0 - 8.0Bon [facility] HospitalProtein (U) [Mass/Vol]NegativeNEGATIVE mg/dLBon [facility] North HospitalSpecific gravity (U) [Rel density]1.630Qnzo8.005 - 1.030Bon [facility] North HospitalUrobilinogen Qn (U)Normal0.0 - 1.0 EU/dLBon [facility] Surgery CenterUrinalysis,Microon [id number]rgKSZMNeptx St. Vincent Medical CenterComment on above:Performed By: #### CRP, HCG, LIP, TROPI, CDP, CP #### [facility] [address] [place] [address] Curtain Stitcher: ANGIE GargastsNoneNoecu health edgecombe hospital0-8Ohio Valley HospitalComment on above:Result Comment: Reference range defined for non- centrifuged specimen.Performed By: #### CRP, HCG, LIP, TROPI, CDP, CP #### [facility] [address] [place] [address] [phone] Curtain Stitcher: Dioni Merlos MDEpithelial cells LM Ql (Urine sed)5 TO 10Normal 0-5Ohio Valley HospitalComment on above:Performed By: #### CRP, HCG, LIP, TROPI, CDP, CP #### [facility] [address] [place] [address] Curtain Stitcher: Dioni Merlos MDUrine RBC's2 TO 9Utufro1-1SoyhlOhio Valley HospitalComment on above:Result Comment: Reference range defined for non- centrifuged specimen.Performed By: #### CRP, HCG, LIP, TROPI, CDP, CP #### [facility] [address] [place], [place] [phone] Curtain Stitcher: Dioni Merlos MDUrine WBC's5 TO 46Mxebgn4-5RzcxsOhio Valley HospitalComment on above:Performed By: #### CRP, HCG, LIP, TROPI, CDP, CP #### [facility] [address] [place], [place] [phone] Curtain Stitcher: Dioni Merlos, MDXR CHEST 2 VWSon 69-75-7844YJ CHEST 2 VWSXR CHEST 2 VWS PA and lateral chest, 2 views, dated 08/23/2023 at 4:44 PM INDICATION: Severe cough, fever. FINDINGS: No comparisons available. No airspace disease or edema. No effusions. The heart and mediastinal structures are within normal limits. IMPRESSION: No acute cardiopulmonary abnormality seen. Finalized by Myron Varela MD on 04/22/2024 4:47 PMNSharp [facility] Ambulatory PPGXR Chest PA and Lateralon [id number] and lateral chest, 2 views, dated 08/23/2023 at 4:44 PM INDICATION: Severe cough, fever. FINDINGS: No comparisons available. No airspace disease or edema. No effusions. The heart and mediastinal structures are within normal limits. IMPRESSION: No acute cardiopulmonary abnormality seen. Finalized by Myron Varela MD on 04/22/2024 4:47 PMSECTRAPAMyron Tong MD - 04/22/2024 PA and lateral chest, 2 views, dated 08/23/2023 at 4:44 PM INDICATION: Severe cough, fever. FINDINGS: No comparisons available. No airspace disease or edema. No effusions. The heart and mediastinal structures are within normal limits. IMPRESSION: No acute cardiopulmonary abnormality seen. Finalized by Myron Varela MD on 04/22/2024 4:[address] [facility] HospitalRadiology Study observation (narrative)[facility] HospitalXR Chest PA and LateralOrdered By: Myron Varela on 00-75-1509EvyAazwyzACMC Healthcare System Work Phone: Calprotectin, Fecalon 99-14-8981Laqduhlkfguf, Xzluk860 ug/gHigh<=49Ohio Valley HospitalComment on above:Result Comment: (NOTE) REFERENCE INTERVAL: Calprotectin, Fecal by Immunoassay Less than 50 ug/g.........Normal 50-120 ug/g...............Borderline elevated, test should be re-evaluated in 4-6 weeks. 121 ug/g or greater.......Elevated Performed By: [facility] [address] [place] [address] Disk Recordist: Hugo Ramsey MD, PhD CLIA Number: [id number] By: #### CBC, LACTIC #### [facility] [address] [place] [address] Curtain Stitcher: Dioni Merlos MDQuantiFERON TBon 77-45-5967Hxheph Franklin minus NIL 9.95 IU/mLNormalOhio Valley HospitalComment on above:Performed By: #### CRP #### [address] [phone] Curtain Stitcher: Dioni Merlos MDQuanti TB Gold PlusNegativeNormalNegativeOhio Valley HospitalComment on above:Result Comment: (NOTE) INTERPRETIVE INFORMATION:Quantiferon TB Gold Plus Interferon gamma [...] Mycobacterium tuberculosis Infection -- [place], 2010 (http://www.cdc.gov/mmwr/preview/mmwrhtml/fd3048o2.htm), for more information concerning test performance in low-prevalence populations and use in occupational screening. Performed By: [facility] [address] [place] [address] Disk Recordist: Hugo Ramsey MD, PhD CLIA Number: [id number] By: #### CRP #### [place] [address] Curtain Stitcher: Dioni Merlos MDQuanti TB1 minus NIL0.00 IU/mLNormal<=0.34Ohio Valley HospitalComment on above:Performed By: #### CRP #### [place] [address] Curtain Stitcher: Dioni Merlos MDQuanti TB2 minus NIL0.00 IU/mLNormal<=0.34Ohio Valley HospitalComment on above:Performed By: #### CRP #### [facility] [address] [place] [address] Curtain Stitcher: Dioni Merlos MDQuantiFERON NIL0.05 IU/mLNormalOhio Valley HospitalComment on above:Performed By: #### CRP #### [facility] [address] [place] [address] Curtain Stitcher: Shlomo Garg Metabolic Profon 75-08-5893Dqhcv gap [Moles/Vol]8 mmol/LLow9-16Ohio Valley HospitalComment on above: Performed By: #### CBC, LACTIC #### [facility] [address] [place] [address] Curtain Stitcher: ANGIE Gargalcium [Mass/Vol]7.8 mg/dLLow8.6-10.4Ohio Valley HospitalComment on above:Performed By: #### CBC, LACTIC #### [facility] [address] [place] [address] Curtain Stitcher: Dioni Merlos MDChloride [Moles/Vol]107 mmol/CIhgzdn13-790KbhhmOhio Valley HospitalComment on above:Performed By: #### CBC, LACTIC #### [facility] [address] [place] [address] Curtain Stitcher: Dioni Merlos MDCO2 [Moles/Vol]26 mmol/FNswbeq08-56YskuvOhio Valley HospitalComment on above:Performed By: #### CBC, LACTIC #### [facility] [address] [place] [address] Curtain Stitcher: ANGIE Gargreatinine [Mass/Vol]0.6 mg/dLNormal0.50-0.90 Ohio Valley HospitalComment on above:Performed By: #### CBC, LACTIC #### [facility] [address] [place] [address] Curtain Stitcher: Dioni Merlos MDGFR/1.73 sq M.predicted among non-blacks MDRD (S/P/Bld) [Vol rate/Area]mL/min/{1.73_m2}Normal>60Ohio Valley HospitalComment on above:Result Comment: These results are not intended for [...] or following therapy that affects renal tubular secretion.Performed By: #### CBC, LACTIC #### [facility] [address] [place] [address] [place] [address] Curtain Stitcher: Dioni Merlos MDGlucose [Mass/Vol]98 mg/pPLqqqsj96-77UsvsxFremont Memorial HospitalComment on above:Performed By: #### CBC, LACTIC #### [facility] [address] [place] [address]15 Curtain Stitcher: Dioni Merlos MDPotassium [Moles/Vol]3.7 mmol/LNormal3.7-5.3 [facility] HospitalComment on above:Performed By: #### CBC, LACTIC #### [facility] [address] [place] [address] Curtain Stitcher: Dioni Merlos MDSodium [Moles/Vol]141 mmol/XDmzqzm636-546JycibOhio Valley HospitalComment on above:Performed By: #### FOZIA, LACTIC #### [facility] [address] [place] [address] Curtain Stitcher: Dioni Merlos MDUrea nitrogen [Mass/Vol]3 mg/dLLow6-20Ohio Valley HospitalComment on above:Performed By: #### CBC, LACTIC #### [facility] [address] [place] [address] Curtain Stitcher: Dioni Merlos [facility] with Diffon 63-53-9978Mxp. Basophil<0.03 Normal0.00-0.20Ohio Valley HospitalComment on above:Performed By: #### CBC, LACTIC #### [facility] [address] [place] [address] Curtain Stitcher: Ruba Garg. Eosinophil<0.21Naptje5.00-0.44Ohio Valley HospitalComment on above:Performed By: #### CBC, LACTIC #### [facility] [address] [place] [address] Curtain Stitcher: Ruba Garg.Imm.Granulocyte0.06 k/uLNormal0.00-0.30Ohio Valley HospitalComment on above:Performed By: #### CBC, LACTIC #### [facility] [address] [place] [address] 97880 Curtain Stitcher: Ruba Garg.Neutrophil (Seg)8.93 k/uLHigh1.50-8.10Ohio Valley HospitalComment on above:Performed By: #### CBC, LACTIC #### [facility] [address] [place] [address] Curtain Stitcher: Dioni Merlos MDBasophils/100 WBC (Bld)0 %Normal0-2MFremont Memorial HospitalComment on above:Performed By: #### CBC, LACTIC #### [address] [address] Curtain Stitcher: Dioni Merlos MDEosinophils/100 WBC (Bld)0 %Low1-4Ohio Valley HospitalComment on above:Performed By: #### CBC, LACTIC #### [address] [address] Curtain Stitcher: Dioni Merlos MDErythrocyte distribution width (RBC) [Ratio]14.0 %Ginfvj15.8-14.4Ohio Valley HospitalComment on above:Performed By: #### CBC, LACTIC #### [address] [address] Curtain Stitcher: Dioni Merlos MDHematocrit (Bld) [Volume fraction]35.1 %Low 36.3-47.1MFremont Memorial HospitalComment on above:Performed By: #### CBC, LACTIC #### [address] [address] Curtain Stitcher: Dioni Merlos MDHemoglobin (Bld) [Mass/Vol]10.4 g/dLLow11.9-15.1 [facility] HospitalComment on above:Performed By: #### CBC, LACTIC #### [facility] [address] [place] [address] Curtain Stitcher: Mayra Gargture granulocytes/100 WBC (Bld)1 %Tdxv2EkpwaOhio Valley HospitalComment on above:Performed By: #### CBC, LACTIC #### [place] [address] Curtain Stitcher: Dioni Merlos MDLymphocytes (Bld) [#/Vol]0.74 10*3/uLLow 1.10-3.70[facility] HospitalComment on above:Performed By: #### CBC, LACTIC #### [place] [address] Curtain Stitcher: Dereck Gargmphocytes/100 WBC (Bld)7 %Yen44-58LyuslOhio Valley HospitalComment on above:Performed By: #### CBC, LACTIC #### [place] [address] Curtain Stitcher: JAN GargCH (RBC) [Entitic mass]29.5 omAzlisl79.2-33.5 [facility] HospitalComment on above:Performed By: #### CBC, LACTIC #### [place] [address] Curtain Stitcher: JAN GargCHC (RBC) [Mass/Vol]29.6 g/sXFuglua42.4-34.8 [facility] HospitalComment on above:Performed By: #### CBC, LACTIC #### [address] [address] Curtain Stitcher: JAN GargCV (RBC) [Entitic vol]99.4 vFBprlty60.6-102.9 [facility] HospitalComment on above:Performed By: #### CBC, LACTIC #### [address] [address] Curtain Stitcher: JAN Gargonocytes (Bld) [#/Vol]0.32 10*3/uLNormal 0.10-1.20[facility] HospitalComment on above:Performed By: #### CBC, LACTIC #### [address] [address] Curtain Stitcher: JAN Gargonocytes/100 WBC (Bld)3 %Normal3-12[facility] HospitalComment on above:Performed By: #### CBC, LACTIC #### [address] [address] Curtain Stitcher: Karishma Gargophil (Seg)89 %Duno92-08AxxbhOhio Valley HospitalComment on above:Performed By: #### CBC, LACTIC #### [address] [address] Curtain Stitcher: Dioni Merlos MDNRBC Automated0.0 per 100 WBCNormal0.0[facility] HospitalComment on above:Performed By: #### CBC, LACTIC #### [address] [address] Curtain Stitcher: Latisha Gargtelet mean volume (Bld) [Entitic vol]9.2 fL Normal8.1-13.5[facility] Valley HospitalComment on above:Performed By: #### CBC, LACTIC #### [address] [address] Curtain Stitcher: RACHID Garglatelets (Bld) [#/Vol]283 10*3/yVPniuqm424-110 [facility] HospitalComment on above:Performed By: #### CBC, LACTIC #### [address] [address] Curtain Stitcher: THEODORE GargBC (Bld) [#/Vol]3.53 10*6/uLLow3.95-5.11[facility] HospitalComment on above:Performed By: #### CBC, LACTIC #### [facility] [address] [place] [address] Curtain Stitcher: HONG GargBC (d) [#/Vol]10.1 10*3/uLNormal3.5-11.3MFremont Memorial HospitalComment on above:Performed By: #### CBC, LACTIC #### [address] [address] Curtain Stitcher: RE Garg/Folate Panelon 33-28-4078Rgirjbiri (Vitamin B12) [Mass/Vol]pg/lNMuf753-6894LdusnOhio Valley HospitalComment on above: Performed By: #### CRP, HCG, LIP, TROPI, CDP, CP #### [facility] [address] [place] [address] Curtain Stitcher: Lorraine Garg Acid11.4 ng/mLNormal4.8-24.2MFremont Memorial HospitalComment on above:Performed By: #### CRP, HCG, LIP, TROPI, CDP, CP #### [address] [address] Curtain Stitcher: Shlomo Garg Metabolic Profon 14-30-3902Rbqvq gap [Moles/Vol]7 mmol/LLow9-16Ohio Valley HospitalComment on above: Performed By: #### CRP, HCG, LIP, TROPI, CDP, CP #### [facility] [address] [place] [address] Curtain Stitcher: ANGIE Gargalcium [Mass/Vol]7.9 mg/dLLow8.6-10.4[facility] HospitalComment on above:Performed By: #### CRP, HCG, LIP, TROPI, CDP, CP #### [facility] [address] [place] [address] Curtain Stitcher: ANGIE Garghloride [Moles/Vol]103 mmol/CUcefkj56-496YbruoOhio Valley HospitalComment on above:Performed By: #### CRP, HCG, LIP, TROPI, CDP, CP #### [facility] [address] [place] [address] Curtain Stitcher: Dioni Merlos MDCO2 [Moles/Vol]29 mmol/IEvdivn25-30UwpycOhio Valley HospitalComment on above:Performed By: #### CRP, HCG, LIP, TROPI, CDP, CP #### [address] [address] Curtain Stitcher: ANGIE Gargreatinine [Mass/Vol]0.7 mg/dLNormal0.50-0.90 [facility] HospitalComment on above:Performed By: #### CRP, HCG, LIP, TROPI, CDP, CP #### [facility] [address] [place] [address] Curtain Stitcher: Dioni Merlos MDGFR/1.73 sq M.predicted among non-blacks MDRD (S/P/Bld) [Vol rate/Area]mL/min/{1.73_m2}Normal>60[facility] HospitalComment on above:Result Comment: These results are not intended for [...] or following therapy that affects renal tubular secretion.Performed By: #### CRP, HCG, LIP, TROPI, CDP, CP #### [facility] [address] [place] [address] Curtain Stitcher: Dioni Merlos MDGlucose [Mass/Vol]91 mg/iZLtxbct05-84Rmwis Rancho Springs Medical CenterComment on above:Performed By: #### CRP, HCG, LIP, TROPI, CDP, CP #### [facility] [address] [place] [address] Curtain Stitcher: RACHID Gargotassium [Moles/Vol]3.6 mmol/LLow3.7-5.3MFremont Memorial HospitalComment on above:Performed By: #### CRP, HCG, LIP, TROPI, CDP, CP #### [facility] [address] [place] [address] Curtain Stitcher: CASS Gargodium [Moles/Vol]139 mmol/CXgmvnw001-444RwgqgOhio Valley HospitalComment on above:Performed By: #### CRP, HCG, LIP, TROPI, CDP, CP #### [facility] [address] [place] [address] Curtain Stitcher: Dioni Merlos MDUrea nitrogen [Mass/Vol]6 mg/dLNormal6-20[facility] HospitalComment on above:Performed By: #### CRP, HCG, LIP, TROPI, CDP, CP #### [facility] [address] [place] [address] Curtain Stitcher: ANGIE Garg diff Ag + Toxinon 4C diff Ag + Toxin NegativeNormalNEGOhio Valley HospitalComment on above:Result Comment: No C. difficile antigen and Toxin Detected.Performed By: #### CBC, LACTIC #### [facility] [address] [place] [address] Curtain Stitcher: ANGIE GargBC with Diffon [id number]. Basophil<0.03 Normal0.00-0.20[facility] HospitalComment on above:Performed By: #### CRP, HCG, LIP, TROPI, CDP, CP #### [address] [address] Curtain Stitcher: Ruba Garg. Eosinophil<0.72Invhlr0.00-0.44[facility] HospitalComment on above:Performed By: #### CRP, HCG, LIP, TROPI, CDP, CP #### [place] [address] Curtain Stitcher: MDAbs. BritanyImm.Granulocyte0.04 k/uLNormal0.00-0.30[facility] HospitalComment on above:Performed By: #### CRP, HCG, LIP, TROPI, CDP, CP #### [place] [address] Curtain Stitcher: Ruba Garg.Neutrophil (Seg)6.87 k/uLNormal1.50-8.10 [facility] HospitalComment on above:Performed By: #### CRP, HCG, LIP, TROPI, CDP, CP #### [place] [address] Curtain Stitcher: Dioni Merlos MDBasophils/100 WBC (Bld)0 %Normal0-2MFremont Memorial HospitalComment on above:Performed By: #### CRP, HCG, LIP, TROPI, CDP, CP #### [place] [address] Curtain Stitcher: Dioni Merlos MDEosinophils/100 WBC (Bld)0 %Low1-4[facility] HospitalComment on above:Performed By: #### CRP, HCG, LIP, TROPI, CDP, CP #### [address] [address] Curtain Stitcher: Dioni Merlos MDErythrocyte distribution width (RBC) [Ratio]13.7 %Thspmc96.8-14.4[facility] HospitalComment on above:Performed By: #### CRP, HCG, LIP, TROPI, CDP, CP #### [facility] [address] [place] [address] Curtain Stitcher: Dioni Merlos MDHematocrit (Bld) [Volume fraction]34.1 %Low 36.3-47.1MFremont Memorial HospitalComment on above:Performed By: #### CRP, HCG, LIP, TROPI, CDP, CP #### [facility] [address] [place] [address] Curtain Stitcher: Dioni Merlos MDHemoglobin (Bld) [Mass/Vol]10.5 g/dLLow11.9-15.1 [facility] HospitalComment on above:Performed By: #### CRP, HCG, LIP, TROPI, CDP, CP #### [place] [address] Curtain Stitcher: Mayra Gargture granulocytes/100 WBC (Bld)1 %Viad9CuifuOhio Valley HospitalComment on above:Performed By: #### CRP, HCG, LIP, TROPI, CDP, CP #### [facility] [address] [place] [address] Curtain Stitcher: Dereck Gargmphocytes (Bld) [#/Vol]1.01 10*3/uLLow 1.10-3.70[facility] HospitalComment on above:Performed By: #### CRP, HCG, LIP, TROPI, CDP, CP #### [facility] [address] [place] [address] Curtain Stitcher: Dereck Gargmphocytes/100 WBC (Bld)12 %Wir98-64TirikOhio Valley HospitalComment on above:Performed By: #### CRP, HCG, LIP, TROPI, CDP, CP #### [facility] [address] [place] [address] Curtain Stitcher: JAN GargCH (RBC) [Entitic mass]29.0 ikKxnfsa00.2-33.5 [facility] HospitalComment on above:Performed By: #### CRP, HCG, LIP, TROPI, CDP, CP #### [address] [address] Curtain Stitcher: JAN GargCHC (RBC) [Mass/Vol]30.8 g/rPQlgcuh98.4-34.8 [facility] HospitalComment on above:Performed By: #### CRP, HCG, LIP, TROPI, CDP, CP #### [address] [address] Curtain Stitcher: JAN GargCV (RBC) [Entitic vol]94.2 aYHfchqs29.6-102.9 [facility] HospitalComment on above:Performed By: #### CRP, HCG, LIP, TROPI, CDP, CP #### [address] [address] Curtain Stitcher: JAN Gargonocytes (Bld) [#/Vol]0.60 10*3/uLNormal 0.10-1.20[facility] HospitalComment on above:Performed By: #### CRP, HCG, LIP, TROPI, CDP, CP #### [address] [address] Curtain Stitcher: JAN Gargonocytes/100 WBC (Bld)7 %Normal3-12[facility] HospitalComment on above:Performed By: #### CRP, HCG, LIP, TROPI, CDP, CP #### [address] [address] Curtain Stitcher: Fer Gargutrophil (Seg)80 %Dpia64-16WzypwOhio Valley HospitalComment on above:Performed By: #### CRP, HCG, LIP, TROPI, CDP, CP #### [facility] [address] [place] [address] Curtain Stitcher: GAYATRI Garg Automated0.0 per 100 WBCNormal0.0[facility] HospitalComment on above:Performed By: #### CRP, HCG, LIP, TROPI, CDP, CP #### [facility] [address] [place] [address] Curtain Stitcher: Natalia Garg mean volume (Bld) [Entitic vol]9.5 fL Normal8.1-13.5[facility] HospitalComment on above:Performed By: #### CRP, HCG, LIP, TROPI, CDP, CP #### [address] [address] Curtain Stitcher: Lionel Garg (Bld) [#/Vol]354 10*3/lONkwife922-439 [facility] HospitalComment on above:Performed By: #### CRP, HCG, LIP, TROPI, CDP, CP #### [facility] [address] [place] [address] Curtain Stitcher: FADY Garg (Bld) [#/Vol]3.62 10*6/uLLow3.95-5.11[facility] HospitalComment on above:Performed By: #### CRP, HCG, LIP, TROPI, CDP, CP #### [facility] [address] [place] [address] Curtain Stitcher: GIANNA Garg (Bld) [#/Vol]8.6 10*3/uLNormal3.5-11.3MFremont Memorial HospitalComment on above:Performed By: #### CRP, HCG, LIP, TROPI, CDP, CP #### [facility] [address] [place] [address] Curtain Stitcher: Luke Garg [facility] [id number] A Ab,IgM Non-ReactiveSCCI Hospital LimaComment on above:Performed By: #### CRP, HCG, LIP, TROPI, CDP, CP #### [facility] [address] [place] [address] Curtain Stitcher: Nora Garg Core Ab,IgMNon-ReactiveSCCI Hospital LimaComment on above:Performed By: #### CRP, HCG, LIP, TROPI, CDP, CP #### [facility] [address] [place] [address] Curtain Stitcher: Nora Garg Surf AgNon-ReactiveSCCI Hospital LimaComment on above:Performed By: #### CRP, HCG, LIP, TROPI, CDP, CP #### [facility] [address] [place] [address] Curtain Stitcher: Nora Garg AbNon-ReactiveSCCI Hospital LimaComment on above:Result Comment: The hepatitis C procedure used in [...] is recommended by ordering HCV RNA by PCR.Performed By: #### CRP, HCG, LIP, TROPI, CDP, CP #### [facility] [address] [place] [address] Curtain Stitcher: Alfredo Garg PCR [facility] [id number] sp PCRNEGATIVE: No Campylobacter spp. (jejuni or coli) DNA DetectedNoalCUniversity Hospitals Beachwood Medical CenterComment on above:Performed By: #### CRP, HCG, LIP, TROPI, CDP, CP #### [facility] [address] [place] [address] [place] [address] Curtain Stitcher: ZORAN Garg coli enterotox PCRNEGATIVE: No Enterotoxigenic E. coli (ETEC) Heat-labile and heat-stable (LT/ST)NormalEECNKnox Community HospitalComment on above:Result Comment: DNA DetectedPerformed By: #### CRP, HCG, LIP, TROPI, CDP, CP #### [address] [address] Curtain Stitcher: Shavon Gargmonas sp PCRNegativeNoecu health edgecombe hospitalPLEFayette County Memorial HospitalComment on above:Performed By: #### CRP, HCG, LIP, TROPI, CDP, CP #### [address] [address] Curtain Stitcher: CASS Gargalmonella sp PCRNegativeNoSheltering Arms HospitalComment on above:Performed By: #### CRP, HCG, LIP, TROPI, CDP, CP #### [address] [address] Curtain Stitcher: Cecilio Garggatoxin gene PCRNegativeNoCone Health Moses Cone HospitalTXFayette County Memorial HospitalComment on above:Performed By: #### CRP, HCG, LIP, TROPI, CDP, CP #### [address] [address] Curtain Stitcher: Cecilio Garggella sp PCRNegativeNoFormerly Morehead Memorial HospitalNEGOhio Valley HospitalComment on above:Performed By: #### CRP, HCG, LIP, TROPI, CDP, CP #### [address] [address] Curtain Stitcher: Lila Gargbrio sp PCRNEGATIVE: No Vibrio (V. vulnificus, V, parahaemolyticus and V. cholerae) DNANormalVIBNKnox Community HospitalComment on above:Result Comment: DetectedPerformed By: #### CRP, HCG, LIP, TROPI, CDP, CP #### [facility] [address] [place] [address] Curtain Stitcher: Eder Garg gene PCRNegativeNormalYERNEGOhio Valley HospitalComment on above:Performed By: #### CRP, HCG, LIP, TROPI, CDP, CP #### [facility] [address] [place] [address] Curtain Stitcher: Dioni Merlos MDVitamin D 25 OHon [id number] D 25 OH21.0 ng/mLLow30.0-100.0[facility] HospitalComment on above:Result Comment: Reference Range: Vitamin D status Range Deficiency <20 ng/mL Mild Deficiency 20-30 ng/mL Sufficiency 30-100 ng/mL Toxicity >100 ng/mLPerformed By: #### CRP, HCG, LIP, TROPI, CDP, CP #### [facility] [address] [place] [address] Curtain Stitcher: Shlomo Garg Metabolic Profon 01-98-7866Bcrrq gap [Moles/Vol]9 mmol/LNormal9-16[facility] HospitalComment on above: Performed By: #### CBC, LACTIC #### [facility] [address] [place] [address] Curtain Stitcher: Dioni Merlos MDCalcium [Mass/Vol]8.5 mg/dLLow8.6-10.4[facility] HospitalComment on above:Performed By: #### CBC, LACTIC #### [facility] [address] [place] [address] Curtain Stitcher: Dioni Merlos MDChloride [Moles/Vol]100 mmol/UPigtpk96-859JmjmuOhio Valley HospitalComment on above:Performed By: #### CBC, LACTIC #### [address] [address] Curtain Stitcher: Dioni Merlos MDCO2 [Moles/Vol]31 mmol/KGnkbky03-86QdgmaOhio Valley HospitalComment on above:Performed By: #### CBC, LACTIC #### [address] [address] Curtain Stitcher: ANGIE Gargreatinine [Mass/Vol]0.6 mg/dLNormal0.50-0.90 [facility] HospitalComment on above:Performed By: #### FOZIA, LACTIC #### [address] [address] Curtain Stitcher: Dioni Merlos MDGFR/1.73 sq M.predicted among non-blacks MDRD (S/P/Bld) [Vol rate/Area]mL/min/{1.73_m2}Normal>60[facility] HospitalComment on above:Result Comment: These results are not intended for [...] or following therapy that affects renal tubular secretion.Performed By: #### FOZIA, LACTIC #### [address] [address] Curtain Stitcher: Dioni Merlos MDGlucose [Mass/Vol]103 mg/wKCucw16-94OvkmdFremont Memorial HospitalComment on above:Performed By: #### CBC, LACTIC #### [facility] [address] [place] [address] Curtain Stitcher: Dioni Merlos MDPotassium [Moles/Vol]3.4 mmol/LLow3.7-5.3MFremont Memorial HospitalComment on above:Performed By: #### CBC, LACTIC #### [facility] [address] [place] [address] Curtain Stitcher: CASS Gargodium [Moles/Vol]140 mmol/HCnzwjj639-671IbpzuOhio Valley HospitalComment on above:Performed By: #### CBC, LACTIC #### [facility] [address] [place] [address] Curtain Stitcher: Dioni Merlos MDUrea nitrogen [Mass/Vol]6 mg/dLNormal6-20[facility] HospitalComment on above:Performed By: #### CBC, LACTIC #### [facility] [address] [place] [address] Curtain Stitcher: ANGIE Garg-Reactive Proteinon [id number] [Mass/Vol]6.8 mg/LHigh0.0-5.0[facility] HospitalComment on above:Performed By: #### CRP #### [facility] [address] [place] [address] Curtain Stitcher: ANGIE GargBC with Diffon 65-00-1314Xqf. Basophil0.00 k/uL Normal0.0-0.2MFremont Memorial HospitalComment on above:Performed By: #### CBC, LACTIC #### [facility] [address] [place] [address] Curtain Stitcher: MDAbs. BritanyImm.Granulocyte0.00 k/uLNormal0.00-0.30[facility] HospitalComment on above:Performed By: #### CBC, LACTIC #### [facility] [address] [place] [address] Curtain Stitcher: MDAbs. BritanyNeutrophil (Seg)12.46 k/uLHigh1.8-7.7[facility] HospitalComment on above:Performed By: #### CBC, LACTIC #### [facility] [address] [place] [address] Curtain Stitcher: Dioni Merlos MDBasophils/100 WBC (Bld)0 %Normal0-2MFremont Memorial HospitalComment on above:Performed By: #### CBC, LACTIC #### [address] [address] Curtain Stitcher: Dioni Merlos MDEosinophils (Bld) [#/Vol]0.00 10*3/uLNormal 0.0-0.4[facility] HospitalComment on above:Performed By: #### CBC, LACTIC #### [address] [address] Curtain Stitcher: Dioni Merlos MDEosinophils/100 WBC (Bld)0 %Low1-4[facility] HospitalComment on above:Performed By: #### CBC, LACTIC #### [address] [address] Curtain Stitcher: Dioni Merlos MDImmature granulocytes/100 WBC (Bld)0 %Normal0 [facility] HospitalComment on above:Performed By: #### CBC, LACTIC #### [address] [address] Curtain Stitcher: Dioni Merlos MDLymphocytes (Bld) [#/Vol]0.67 10*3/uLLow1.0-4.8 [facility] HospitalComment on above:Performed By: #### CBC, LACTIC #### [address] [address] Curtain Stitcher: Dioni Merlos MDLymphocytes/100 WBC (Bld)5 %Tjt99-12HiaxlOhio Valley HospitalComment on above:Performed By: #### CBC, LACTIC #### [address] [address] Curtain Stitcher: JAN Gargonocytes (Bld) [#/Vol]0.27 10*3/uLNormal0.1-0.8 [facility] HospitalComment on above:Performed By: #### CBC, LACTIC #### [address] [address] Curtain Stitcher: JAN Gargonocytes/100 WBC (Bld)2 %Normal1-7[facility] HospitalComment on above:Performed By: #### CBC, LACTIC #### [facility] [address] [place] [address] Curtain Stitcher: JAN Gargorphology Eliu (Bld) [Interp]NormalNormalOhio Valley HospitalComment on above:Performed By: #### CBC, LACTIC #### [address] [address] Curtain Stitcher: Dioni Merlos MDNeutrophil (Seg)93 %Jgjw29-98BmajnOhio Valley HospitalComment on above:Performed By: #### CBC, LACTIC #### [address] [address] Curtain Stitcher: Dioni Merlos MDErythrocyte distribution width (RBC) [Ratio]13.9 %Lynksl96.8-14.4[facility] HospitalComment on above:Performed By: #### CBC, LACTIC #### [address] [address] Curtain Stitcher: Dioni Merlos MDHematocrit (Bld) [Volume fraction]38.2 %Normal 36.3-47.1MFremont Memorial HospitalComment on above:Performed By: #### CBC, LACTIC #### [address] [address] Curtain Stitcher: Dioni Merlos MDHemoglobin (Bld) [Mass/Vol]12.0 g/dLNormal 11.9-15.1MFremont Memorial HospitalComment on above:Performed By: #### CBC, LACTIC #### [place] [address] Curtain Stitcher: JAN GargCH (RBC) [Entitic mass]30.0 bnQvwrwb49.2-33.5 [facility] HospitalComment on above:Performed By: #### CBC, LACTIC #### [place] [address] Curtain Stitcher: SHARYN GargC (RBC) [Mass/Vol]31.4 g/eKCmdsuc28.4-34.8 [facility] HospitalComment on above:Performed By: #### CBC, LACTIC #### [place] [address] Curtain Stitcher: JAN GargCV (RBC) [Entitic vol]95.5 qZFhohws09.6-102.9 [facility] HospitalComment on above:Performed By: #### CBC, LACTIC #### [place] [address] Curtain Stitcher: GAYATRI Garg Automated0.0 per 100 WBCNormal0.0[facility] HospitalComment on above:Performed By: #### CBC, LACTIC #### [place] [address] Curtain Stitcher: Natalia Garg mean volume (Bld) [Entitic vol]9.2 fL Normal8.1-13.5[facility] HospitalComment on above:Performed By: #### CBC, LACTIC #### [place] [address] Curtain Stitcher: RACHID Garglatelets (Bld) [#/Vol]404 10*3/vPIvjddp576-411 [facility] HospitalComment on above:Performed By: #### CBC, LACTIC #### [address] [address] Curtain Stitcher: THEODORE Garg ([facility]) [#/Vol]4.00 10*6/uLNormal3.95-5.11 [facility] HospitalComment on above:Performed By: #### CBC, LACTIC #### [address] [address] Curtain Stitcher: HONG Garg ([facility]) [#/Vol]13.4 10*3/uLHigh3.5-11.3MFremont Memorial HospitalComment on above:Performed By: #### CBC, LACTIC #### [address] [address] Curtain Stitcher: Dioni Merlos MDLipaseon 03-95-5413Fiifrm [Catalytic activity/Vol]21 U/BLdlamm16-39VloloOhio Valley HospitalComment on above: Performed By: #### CBC, LACTIC #### [address] [address] Curtain Stitcher: Alfredo Garg PCR Batteryon [id number] Description.FECESLakeland Regional HospitalalOhio Valley HospitalComment on above: Performed By: #### CRP, HCG, LIP, TROPI, CDP, CP #### [address] [address] Curtain Stitcher: RACHID Gargerformed By: #### CBC, LACTIC #### [address] [address] Curtain Stitcher: Dioni Merlos MDC-Reactive Proteinon 23-74-9471VBM [Mass/Vol]8.0 mg/LHigh0.0-5.0[facility] HospitalComment on above:Performed By: #### CBC, LACTIC #### [address] [place] [address] Curtain Stitcher: ANDREW Garg with Diffon 53-62-0012Chf. Basophil0.03 k/uL Normal0.00-0.20[facility] HospitalComment on above:Performed By: #### CBC, LACTIC #### [facility] [address] [place] [address] Curtain Stitcher: Ruba Garg. Eosinophil<0.74Hgiwli4.00-0.44MerKindred HospitalComment on above:Performed By: #### CBC, LACTIC #### [facility] [address] [place] [address] Curtain Stitcher: Ruba Garg.Imm.Granulocyte0.06 k/uLNormal0.00-0.30[facility] HospitalComment on above:Performed By: #### CBC, LACTIC #### [facility] [address] [place] [address] Curtain Stitcher: Ruba Garg.Neutrophil (Seg)11.37 k/uLHigh1.50-8.10[facility] HospitalComment on above:Performed By: #### CBC, LACTIC #### [facility] [address] [place] [address] Curtain Stitcher: Dioni Merlos MDBasophils/100 WBC (Bld)0 %Normal0-2MFremont Memorial HospitalComment on above:Performed By: #### CBC, LACTIC #### [facility] [address] [place] [address] Curtain Stitcher: Dioni Merlos MDEosinophils/100 WBC (Bld)0 %Low1-4[facility] HospitalComment on above:Performed By: #### CBC, LACTIC #### [facility] [address] [place] [address] Curtain Stitcher: Dioni Merlos MDErythrocyte distribution width (RBC) [Ratio]13.9 %Hxncnx41.8-14.4[facility] HospitalComment on above:Performed By: #### CBC, LACTIC #### [address] [address] Curtain Stitcher: Dioni Merlos MDHematocrit (Bld) [Volume fraction]35.2 %Low 36.3-47.1MFremont Memorial HospitalComment on above:Performed By: #### CBC, LACTIC #### [address] [address] Curtain Stitcher: Dioin Merlos MDHemoglobin (Bld) [Mass/Vol]11.1 g/dLLow11.9-15.1 [facility] HospitalComment on above:Performed By: #### CBC, LACTIC #### [address] [address] Curtain Stitcher: Johanny Gargmature granulocytes/100 WBC (Bld)0 %Normal0 [facility] HospitalComment on above:Performed By: #### FOZIA, LACTIC #### [address] [address] Curtain Stitcher: Dioni Merlos MDLymphocytes (Bld) [#/Vol]2.15 10*3/uLNormal 1.10-3.70[facility] HospitalComment on above:Performed By: #### CBC, LACTIC #### [address] [address] [employer]: Dereck Gargmphocytes/100 WBC (Bld)15 %Saa69-20GpozaOhio Valley HospitalComment on above:Performed By: #### CBC, LACTIC #### [address] [address] [employer]: JAN GargCH (RBC) [Entitic mass]29.7 hyBjlail75.2-33.5 [facility] HospitalComment on above:Performed By: #### CBC, LACTIC #### [address] [address] [employer]cher: JAN GargCHC (RBC) [Mass/Vol]31.5 g/lXPfohzo33.4-34.8 [facility] HospitalComment on above:Performed By: #### CBC, LACTIC #### [address] [address] Curtain Stitcher: JAN GargCV (RBC) [Entitic vol]94.1 hTQvjsgv36.6-102.9 [facility] HospitalComment on above:Performed By: #### CBC, LACTIC #### [place] [address] Curtain Stitcher: JAN Gargonocytes (Bld) [#/Vol]0.77 10*3/uLNormal 0.10-1.20[facility] HospitalComment on above:Performed By: #### CBC, LACTIC #### [address] [address] Curtain Stitcher: JAN Gargonocytes/100 WBC (Bld)5 %Normal3-12[facility] HospitalComment on above:Performed By: #### CBC, LACTIC #### [address] [address] Curtain Stitcher: Dioni Merlos MDNeutrophil (Seg)80 %Pons64-09BpdolOhio Valley HospitalComment on above:Performed By: #### CBC, LACTIC #### [address] [address] Curtain Stitcher: Dioni Merlos MDNRBC Automated0.0 per 100 WBCNormal0.0[facility] HospitalComment on above:Performed By: #### CBC, LACTIC #### [facility] [address] [place] [address] Curtain Stitcher: Latisha Gargteankush mean volume (Bld) [Entitic vol]9.1 fL Normal8.1-13.5[facility] HospitalComment on above:Performed By: #### CBC, LACTIC #### [facility] [address] [place] [address] Curtain Stitcher: RACHID Garglatelets (Bld) [#/Vol]378 10*3/pYIydrra669-126 [facility] HospitalComment on above:Performed By: #### CBC, LACTIC #### [facility] [address] [place] [address] Curtain Stitcher: Dioni Merlos MDRBC (Bld) [#/Vol]3.74 10*6/uLLow3.95-5.11[facility] HospitalComment on above:Performed By: #### CBC, LACTIC #### [facility] [address] [place] [address] Curtain Stitcher: Dioni Merlos MDWBC (Bld) [#/Vol]14.4 10*3/uLHigh3.5-11.3MFremont Memorial HospitalComment on above:Performed By: #### CBC, LACTIC #### [facility] [address] [place] [address] Curtain Stitcher: Dioni Merlos MDCT ABDOMEN PELVIS W IV CONTRASTon 59-54-2996VM ABDOMEN PELVIS W IV CONTRASTEXAMINATION: CT OF THE ABDOMEN AND PELVIS WITH [...] adnexa are unremarkable. The bladder is unremarkable. Peritoneum/Retroperitoneum: No free air. There is mild pelvic [...] Signed by: Bishnu Cardoso MD 01/25/24 Final resultNormalMercy Rancho Springs Medical CenterComp Metabolic Profon 74-58-3043Grjlpmk [Mass/Vol]3.3 g/dLLow3.5-5.2[facility] Comment on above:Performed By: #### CBC, LACTIC #### [facility] [place] [address] Curtain Stitcher: Dioni Merlos MDAlbumin/Glob Ratio1.7Aijdyj7.0-2.5Ohio Valley HospitalComment on above:Performed By: #### CBC, LACTIC #### [facility] [address] [place] [address] Curtain Stitcher: Dioni Merlos MDAlkaline Phos67 U/XNcmyzn68-502XtjmoOhio Valley HospitalComment on above:Performed By: #### CBC, LACTIC #### [address] [address] Curtain Stitcher: Dioni Merlos MDALT [Catalytic activity/Vol]8 U/XQxx37-75DorpsOhio Valley HospitalComment on above:Performed By: #### CBC, LACTIC #### [address] [address] Curtain Stitcher: Dioni Merlos MDAnion gap [Moles/Vol]11 mmol/LNormal9-16Ohio Valley HospitalComment on above:Performed By: #### CBC, LACTIC #### [address] [address] Curtain Stitcher: Dioni Merlos MDAST [Catalytic activity/Vol]15 U/KTehbtd40-25 [facility] HospitalComment on above:Performed By: #### CBC, LACTIC #### [address] [address] Curtain Stitcher: Dioni Merlos MDBilirubin [Mass/Vol]mg/dLNormal0.00-1.20[facility] HospitalComment on above:Performed By: #### CBC, LACTIC #### [address] [address] Curtain Stitcher: Dioni Merlos MDCalcium [Mass/Vol]8.8 mg/dLNormal8.6-10.4[facility] HospitalComment on above:Performed By: #### CBC, LACTIC #### [facility] [address] [place] [address] Curtain Stitcher: ANGIE Garghloride [Moles/Vol]102 mmol/RZxwjmy63-634PgeooOhio Valley HospitalComment on above:Performed By: #### CBC, LACTIC #### [facility] [address] [place] [address] Curtain Stitcher: Dioni Merlos MDCO2 [Moles/Vol]30 mmol/FVozewy39-65VdokpOhio Valley HospitalComment on above:Performed By: #### CBC, LACTIC #### [facility] [address] [place] [address] Curtain Stitcher: ANGIE Gargreatinine [Mass/Vol]0.7 mg/dLNormal0.50-0.90 [facility] HospitalComment on above:Performed By: #### CBC, LACTIC #### [facility] [address] [place] [address] Curtain Stitcher: Dioni Merlos MDGFR/1.73 sq M.predicted among non-blacks MDRD (S/P/Bld) [Vol rate/Area]mL/min/{1.73_m2}Normal>60[facility] Valley HospitalComment on above:Result Comment: These results are not intended for [...] or following therapy that affects renal tubular secretion.Performed By: #### CBC, LACTIC #### [facility] [address] [place] [address] Curtain Stitcher: Dioni Merlos MDGlucose [Mass/Vol]98 mg/oFFfssvr30-96HizkgFremont Memorial HospitalComment on above:Performed By: #### CBC, LACTIC #### [facility] [address] [place] [address] Curtain Stitcher: Dioni Merlos MDPotassium [Moles/Vol]3.2 mmol/LLow3.7-5.3[facility] Springs Medical CenterComment on above:Performed By: #### CBC, LACTIC #### [facility] [address] [place] [address] Curtain Stitcher: Dioni Merlos MDProtein [Mass/Vol]5.9 g/dLLow6.6-8.7Ohio [facility] HospitalComment on above:Performed By: #### CBC, LACTIC #### [facility] [address] [place] [address] Curtain Stitcher: Dioni Merlos MDSodium [Moles/Vol]143 mmol/JMauxxc586-735WegszOhio Valley HospitalComment on above:Performed By: #### CBC, LACTIC #### [facility] [address] [place] [address] Curtain Stitcher: Dioni Merlos MDUrea nitrogen [Mass/Vol]8 mg/dLNormal6-20[facility] HospitalComment on above:Performed By: #### CBC, LACTIC #### [facility] [address] [place] [address] Curtain Stitcher: Dioni Merlos MDHCG Screen, Bloodon 15-22-1768LPG Screen, Blood NegativeNormalNEGOhio Valley HospitalComment on above:Result Comment: Specimens with hCG levels near the threshold of the test (25 mIU/mL) may give a negative or indeterminate result. In such cases, another test should be performed with a new specimen in 48-72 hours. If early is suspected clinically in this setting, correlation with quantitative serum b-hCG level is suggested. avox has confirmed the use of plasma for this test. This has not been cleared or approved by the U.S. Food and Drug Administration. The FDA has determined that such clearance is not necessary.Performed By: #### CBC, LACTIC #### [facility] [place] [address] Curtain Stitcher: Dioni Merlos MDLactic Acidon 39-15-0683Gxokdw Acid,Whole Bl1.5 mmol/LNormal0.7-2.1MFremont Memorial HospitalComment on above:Performed By: #### CBC, LACTIC #### [facility] [address] [place] [address] Curtain Stitcher: Dioni Merlos MDLipaseon 59-14-5800Remimz [Catalytic activity/Vol]32 U/NLpqnbw03-58LrhyaOhio Valley HospitalComment on above: Performed By: #### FOZIA, LACTIC #### [facility] [address] [place] [address] Curtain Stitcher: CASS Gargedimentation Rateon 76-85-3509Trpgetgywprmd Rate10 mm/HrNormal0-20[facility] HospitalComment on above:Performed By: #### FOZIA, LACTIC #### [address] [address] Curtain Stitcher: SIERRA Garg ACUTE ABD SERIES CHEST 1 VWon 95-80-6946MV ACUTE ABD SERIES CHEST 1 VWEXAMINATION: TWO XRAY VIEWS OF THE ABDOMEN AND [...] Signed by: Andrew Toure MD 01/25/24 Final resultNormalMercy Rancho Springs Medical CenterAutomated basophil %Ordered By: Imad Asaad on 53-52-6756Tcxqxoirk/100 WBC (Bld)0.3 %Normal.[facility] Medical CenterComment on above:Performed By: #### CBC #### [place] [address] USAAutomated basophil countOrdered By: Imad Asaad on 97-60-3282Sywmbyrrj (Bld) [#/Vol]0.0 10*3/uLNormal0.0-0.2FWilson HealthComment on above:Result Comment: PERFORMED BY: [place] [address] PATHOLOGIST SALOON KEEPER RAGHU NAJERA M.D.Performed By: #### CBC #### [place] [address] USAAutomated blood monocyte countOrdered By: Imad Asaad on 17-42-9013Qyhvmezve (Bld) [#/Vol]0.7 10*3/uLNormal0.0-0.8[facility] Medical CenterComment on above:Performed By: #### CBC #### [facility] [address] [place] [address] USAAutomated eosinophil %Ordered By: Imad Asaad on 01-19-2024 Eosinophils/100 WBC (Bld)0.8 %Normal.[facility] Medical CenterComment on above:Performed By: #### CBC #### [place] [address] USAAutomated eosinophil countOrdered By: Imad Asaad on 61-33-0567Lnvuoxgffwr (Bld) [#/Vol]0.1 10*3/uLNormal0.0-0.45[facility] Medical CenterComment on above:Performed By: #### CBC #### [place] [address] USAAutomated monocyte %Ordered By: Imad Asaad on 01-19-2024 Monocytes/100 WBC (Bld)8.1 %Normal.[facility] Medical CenterComment on above:Performed By: #### CBC #### [facility] [address] [place] [address] USAAutomated neutrophil %Ordered By: Jennifer Brody on 01-19-2024 Neutrophils/100 WBC (Bld)82.7 %Normal.[facility] Medical CenterComment on above:Performed By: #### CBC #### [facility] [address] [place] [address] USACalprotectin, Fecalon 01-88-4320Hdtbmajfpyum, Hwmzj5503 High0-120[facility] Physician GroupComment on above:Result Comment: Results verified by repeat testing Concentration Interpretation Follow-Up < 5 - 50 ug/g Normal None >50 -120 ug/g Borderline Re-evaluate in 4-6 weeks >120 ug/g Abnormal Repeat as clinically indicated Performed at: - [facility] [id number] Curtain Stitcher: Danielle Olson MD, Phone: [phone] PERFORMED BY: [place] [address] PATHOLOGIST SALOON KEEPER RAGHU NAJERA M.D.Performed By: #### CALPROTECT #### [facility] ,Complete Blood Count Auto Diffon 51-41-7718Pwcu Corpuscular HGB Conc33.2 g/dL Xiaviv18.0-35.0[facility] Physician [facility] Health NatchezComment on above:Performed By: #### CBC #### [place] [address] USANRBC%0.1 /100{WBC}Normal0-0.5[facility] Phys[facility] Comment on above:Performed By: #### CBC #### [place] [address] USAErythrocyte distribution width [Ratio] by Automated count Ordered By: Jennifer Brody on 40-27-1755Cjeskxdoehr distribution width (RBC) [Ratio] 14.5 %Xqyzep38.9-15.3FWilson HealthComment on above:Performed By: #### CBC #### [facility] [address] [place] [address] USAErythrocytes [#/volume] in Blood by Automated countOrdered By: Imad Asaad on 39-08-4584PHL (Bld) [#/Vol]3.84 10*6/uLNormal3.60-5.00 [facility] CenterComment on above:Performed By: #### CBC #### [place] [address] USAHematocrit [Volume Fraction] of Blood by Automated count Ordered By: Imad Asaad on 00-49-2313Evwyrbccbc (Bld) [Volume fraction]35.0 % Yymyqc70.0-46.4FWilson HealthComment on above:Performed By: #### CBC #### [place] [address] USAHemoglobin [Mass/volume] in BloodOrdered By: Imad Asaad on 52-01-1160Obgmqihhkp (Bld) [Mass/Vol]11.6 g/dLLow11.8-15.4FWilson HealthComment on above:Performed By: #### CBC #### [place] [address] USALeukocytes [#/volume] corrected for nucleated erythrocytes in Blood by Automated counOrdered By: Imad Asaad on 29-74-2652EVS corrected for nucl RBC Auto (Bld) [#/Vol]8.9 10*3/uL3.8-11.6FWilson Health Leukocytes [#/volume] in Blood by Automated countOrdered By: Imad Asaad on 20-15-5860VER (Bld) [#/Vol]8.9 10*3/uLNormal3.8-11.6FWilson HealthComment on above:Performed By: #### CBC #### [place] [address] USALymphocytes [#/volume] in Blood by Automated countOrdered By: Imad Asaad on 93-38-7647Xzxbrzzhiug (Bld) [#/Vol]0.7 10*3/uLLow1.00-4.8 [facility] CenterComment on above:Performed By: #### CBC #### [facility] [address] [place] [address] USALymphocytes/100 leukocytes in Blood by Automated count Ordered By: Imad Asaad on 16-66-9476Iffrqtmwdsq/100 WBC (Bld)8.1 %Normal. [facility] Medical CenterComment on above:Performed By: #### CBC #### [place] [address] USAMCH [Entitic mass] by Automated countOrdered By: Imad Asaad on 50-04-3478SON (RBC) [Entitic mass]30.1 eqLhqppv11.7-34.3FWilson HealthComment on above:Performed By: #### CBC #### [place] [address] USAMCHC Auto (RBC) [Mass/Vol]Ordered By: Imad Asaad on 48-67-3887UIVN (RBC) [Mass/Vol]33.2 g/dL32.0-35.0[facility] Medical CenterMCV [Entitic volume] by Automated countOrdered By: Imad Asaad on 78-60-6537FXK (RBC) [Entitic vol]90.9 uOXftclw92-090VddgkkwwnUniversity Hospitals Beachwood Medical CenterComment on above:Performed By: #### CBC #### [facility] [address] [place] [address] USANeutrophils [#/volume] in Blood by Automated countOrdered By: Imad Asaad on 45-68-0199Xbtjetqvedg (Bld) [#/Vol]7.4 10*3/uLNormal1.8-7.7 [facility] CenterComment on above:Performed By: #### CBC #### [place] [address] USANucleated erythrocytes [Presence] in Blood by Automated countOrdered By: Imad Asaad on 29-24-2144Ilsfjbatc RBC Auto Ql (Bld)0.1 /100{WBC}0-0.5FWilson HealthPlatelet mean volume [Entitic volume] in Blood by Automated countOrdered By: Imad Asaad on 29-02-1562Delonlxd mean volume (Bld) [Entitic vol]7.7 fLNormal6.3-10.7FWilson HealthComment on above:Performed By: #### CBC #### [facility] [address] [place] [address] USAPlatelets [#/volume] in Blood by Automated countOrdered By: Imad Asaad on 83-32-8935Cqlqgazlj (Bld) [#/Vol]351 10*3/sABvdbot544-171 [facility] CenterComment on above:Performed By: #### CBC #### [facility] [address] [place] [id number] USACT ABDOMEN PELVIS W IV CONTRASTon 97-17-6823EN ABDOMEN PELVIS W IV CONTRASTEXAMINATION: CT OF THE ABDOMEN AND PELVIS WITH [...] adnexa are unremarkable. The bladder is unremarkable. Peritoneum/Retroperitoneum: No free air. There is mild abdominal [...] by: Juan José Mena MD 11/23/23 Final resultNormalMerKindred HospitalC-Reactive Proteinon 72-38-5363MVW [Mass/Vol]mg/LNormal0.0-5.0[facility] HospitalComment on above:Performed By: #### CRP, HCG, LIP, TROPI, CDP, CP #### [facility] [address] [place] [address] Curtain Stitcher: Dioni Merlos [facility] with Auto Differentialon 36-96-2074Jeuycafui (Bld) [#/Vol]0.06 10*3/uLBON SECOURS Oculus360 HEALTHBasophils/100 WBC (Bld)0 %0 - 2 %[facility] MEDICAL CENTEREosinophils (Bld) [#/Vol][facility] [employer] Eosinophils/100 WBC (Bld)0 %Low1 - 4 %[facility] CipherMaxErythrocyte distribution width (RBC) [Ratio]14.4 %11.8 - 14.4 %[facility] Hematocrit (Bld) [Volume fraction]41.0 %36.3 - 47.1 %[facility] Hemoglobin (Bld) [Mass/Vol]13.7 g/dL11.9 - 15.1 g/dLBON SECOHIOHEALTH Immature granulocytes (Bld) [#/Vol]0.08 10*3/uLBON SECOHIOHEALTHImmature granulocytes/100 WBC (Bld)0 %0B[facility] MEDICAL CENTERInterpretation and review of laboratory resultsAbnormalBON SOUTHVIEW MEDICAL CENTERLymphocytes/100 WBC (Bld)8 %Low24 - 43 %[facility] SECOHIOHEALTHLymphocytes/100 WBC (Bld)1.69 %[facility]ITALH (RBC) [Entitic mass]30.7 pg25.2 - 33.5 pgBON MEMORIAL HOSPITALHC (RBC) [Mass/Vol]33.4 g/dL28.4 - 34.8 g/dLBON SOUTHVIEW MEDICAL CENTERMCV (RBC) [Entitic vol]91.9 fL82.6 - 102.9 fLBON SOUTHVIEW MEDICAL CENTERMonocytes/100 WBC (Bld)5 %3 - 12 %[facility] HEALTHCAREMonocytes/100 WBC (Bld)1.02 %[facility] HEALTHCARENeutrophils/100 WBC (Bld)87 %High36 - 65 %[facility] HEALTHCARENucleated RBC/100 WBC (Bld) [Ratio]0.0 %0.0 per 100 WBCBON SOUTHVIEW MEDICAL CENTERPlatelet mean volume (Bld) [Entitic vol]9.9 fL8.1 - 13.5 fLBON SOUTHVIEW MEDICAL CENTERPlatelets (Bld) [#/Vol]408 10*3/uLBON SECOHIOHEALTHRBC (Bld) [#/Vol]4.46 10*6/uL3.95 - 5.11 m/uLBON SOUTHVIEW MEDICAL CENTERSegmented neutrophils/100 WBC (Bld)17.65 %HighTWIN COUNTY REGIONAL HEALTHCAREWBC other (Bld) [#/Vol]20.5HighBON BENNETT COUNTY HOSPITAL AND NURSING HOMECBC with Diffon 40-76-9181Cda. Basophil0.06 k/uLNormal0.00-0.20[facility] Comment on above:Performed By: #### CRP, HCG, LIP, TROPI, CDP, CP #### [facility] [address] [place] [address] Curtain Stitcher: Ruba Garg. Eosinophil<0.15Mwxdsf8.00-0.44Ohio Valley HospitalComment on above:Performed By: #### CRP, HCG, LIP, TROPI, CDP, CP #### [facility] [address] [place] [address] Curtain Stitcher: MDAbs. BritanyImm.Granulocyte0.08 k/uLNormal0.00-0.30[facility] HospitalComment on above:Performed By: #### CRP, HCG, LIP, TROPI, CDP, CP #### [facility] [address] [place] [address] Curtain Stitcher: Ruba Garg.Neutrophil (Seg)17.65 k/uLHigh1.50-8.10[facility] HospitalComment on above:Performed By: #### CRP, HCG, LIP, TROPI, CDP, CP #### [facility] [address] [place] [address] Curtain Stitcher: Dioni Merlos MDBasophils/100 WBC (Bld)0 %Normal0-2MercTustin Rehabilitation HospitalComment on above:Performed By: #### CRP, HCG, LIP, TROPI, CDP, CP #### [facility] [address] [place] [address] Curtain Stitcher: Dioni Merlos MDEosinophils/100 WBC (Bld)0 %Low1-4Ohio [facility] HospitalComment on above:Performed By: #### CRP, HCG, LIP, TROPI, CDP, CP #### [facility] [address] [place] [address] Curtain Stitcher: Dioni Merlos MDErythrocyte distribution width (RBC) [Ratio]14.4 %Icvlaf27.8-14.4[facility] HospitalComment on above:Performed By: #### CRP, HCG, LIP, TROPI, CDP, CP #### [address] [address] Curtain Stitcher: Dioni Merlos MDHematocrit (Bld) [Volume fraction]41.0 %Normal 36.3-47.1MFremont Memorial HospitalComment on above:Performed By: #### CRP, HCG, LIP, TROPI, CDP, CP #### [place] [address] Curtain Stitcher: Dioni Merlos MDHemoglobin (Bld) [Mass/Vol]13.7 g/dLNormal 11.9-15.1MFremont Memorial HospitalComment on above:Performed By: #### CRP, HCG, LIP, TROPI, CDP, CP #### [place] [address] Curtain Stitcher: Johanny Gargmature granulocytes/100 WBC (Bld)0 %Normal0 [facility] HospitalComment on above:Performed By: #### CRP, HCG, LIP, TROPI, CDP, CP #### [place] [address] Curtain Stitcher: Dioni Merlos MDLymphocytes (Bld) [#/Vol]1.69 10*3/uLNormal 1.10-3.70[facility] HospitalComment on above:Performed By: #### CRP, HCG, LIP, TROPI, CDP, CP #### [address] [address] Curtain Stitcher: Dereck Gargmphocytes/100 WBC (Bld)8 %Amv51-87Wevrf [facility]eler Medical CenterComment on above:Performed By: #### CRP, HCG, LIP, TROPI, CDP, CP #### [address] [address] Curtain Stitcher: JAN GargCH (RBC) [Entitic mass]30.7 nmBhbvnp82.2-33.5 [facility] HospitalComment on above:Performed By: #### CRP, HCG, LIP, TROPI, CDP, CP #### [address] [address] Curtain Stitcher: SHARYN GargC (RBC) [Mass/Vol]33.4 g/yOHeaqug10.4-34.8 [facility] HospitalComment on above:Performed By: #### CRP, HCG, LIP, TROPI, CDP, CP #### [place] [address] Curtain Stitcher: XOCHITL Garg (RBC) [Entitic vol]91.9 gPVvukss45.6-102.9 [facility] HospitalComment on above:Performed By: #### CRP, HCG, LIP, TROPI, CDP, CP #### [place] [address] Curtain Stitcher: JAN Gargonocytes (Bld) [#/Vol]1.02 10*3/uLNormal 0.10-1.20[facility] HospitalComment on above:Performed By: #### CRP, HCG, LIP, TROPI, CDP, CP #### [address] [address] Curtain Stitcher: JAN Gargonocytes/100 WBC (Bld)5 %Normal3-12[facility] Valley HospitalComment on above:Performed By: #### CRP, HCG, LIP, TROPI, CDP, CP #### [facility] [address] [place] [address] Curtain Stitcher: Laly Garg (Seg)87 %Fvtm01-96MuojbOhio Valley HospitalComment on above:Performed By: #### CRP, HCG, LIP, TROPI, CDP, CP #### [facility] [address] [place] [address] Curtain Stitcher: GAYATRI Garg Automated0.0 per 100 WBCNormal0.0[facility] HospitalComment on above:Performed By: #### CRP, HCG, LIP, TROPI, CDP, CP #### [address] [address] Curtain Stitcher: Natalia Garg mean volume (Bld) [Entitic vol]9.9 fL Normal8.1-13.5Ohio Valley HospitalComment on above:Performed By: #### CRP, HCG, LIP, TROPI, CDP, CP #### [facility] [address] [place] [address] Curtain Stitcher: Lionel Garg (Bld) [#/Vol]408 10*3/iLIlxadw882-645 [facility] HospitalComment on above:Performed By: #### CRP, HCG, LIP, TROPI, CDP, CP #### [address] [address] Curtain Stitcher: FADY Garg (Bld) [#/Vol]4.46 10*6/uLNormal3.95-5.11 [facility] HospitalComment on above:Performed By: #### CRP, HCG, LIP, TROPI, CDP, CP #### [address] [address] Curtain Stitcher: GIANNA Garg (Bld) [#/Vol]20.5 10*3/uLHigh3.5-11.3MFremont Memorial HospitalComment on above:Performed By: #### CRP, HCG, LIP, TROPI, CDP, CP #### [facility] [address] [place] [address] Curtain Stitcher: ANGIE Gargomp Metabolic Profon 45-85-3558Vneezdf [Mass/Vol]4.1 g/dLNormal3.5-5.2Mmercy health fairfield hospitaly [facility] Springs Medical CenterComment on above: Performed By: #### CRP, HCG, LIP, TROPI, CDP, CP #### [address] [address] Curtain Stitcher: Dioni Merlos MDAlbumin/Glob Ratio1.3Mmfcbm5.0-2.5[facility] HospitalComment on above:Performed By: #### CRP, HCG, LIP, TROPI, CDP, CP #### [address] [address] Curtain Stitcher: Wesley Gargline Phos59 U/UFqspxc39-605AsfugOhio Valley HospitalComment on above:Performed By: #### CRP, HCG, LIP, TROPI, CDP, CP #### [facility] [address] [place] [address] Curtain Stitcher: Dioni Merlos MDALT [Catalytic activity/Vol]13 U/WRkzajg78-86 [facility] HospitalComment on above:Performed By: #### CRP, HCG, LIP, TROPI, CDP, CP #### [facility] [address] [place] [address] Curtain Stitcher: Dioni Merlos MDAnion gap [Moles/Vol]14 mmol/LNormal9-16[facility] HospitalComment on above:Performed By: #### CRP, HCG, LIP, TROPI, CDP, CP #### [facility] [address] [place] [address] Curtain Stitcher: Dioni Melros MDAST [Catalytic activity/Vol]26 U/BHrqnok73-05 [facility] HospitalComment on above:Performed By: #### CRP, HCG, LIP, TROPI, CDP, CP #### [address] [address] Curtain Stitcher: Dioni Merlos MDBilirubin [Mass/Vol]0.2 mg/dLNormal0.00-1.20 [facility] HospitalComment on above:Performed By: #### CRP, HCG, LIP, TROPI, CDP, CP #### [address] [address] Curtain Stitcher: Dioni Merlos MDCalcium [Mass/Vol]9.3 mg/dLNormal8.6-10.4[facility] HospitalComment on above:Performed By: #### CRP, HCG, LIP, TROPI, CDP, CP #### [address] [address] Curtain Stitcher: ANGIE Garghloride [Moles/Vol]102 mmol/QMhaoal85-746JpawxOhio Valley HospitalComment on above:Performed By: #### CRP, HCG, LIP, TROPI, CDP, CP #### [address] [address] Curtain Stitcher: Dioni Merlos MDCO2 [Moles/Vol]23 mmol/RUosffi26-54XmxcsOhio Valley HospitalComment on above:Performed By: #### CRP, HCG, LIP, TROPI, CDP, CP #### [address] [address] Curtain Stitcher: Dioni Merlos MDCreatinine [Mass/Vol]0.6 mg/dLNormal0.50-0.90 [facility] HospitalComment on above:Performed By: #### CRP, HCG, LIP, TROPI, CDP, CP #### [address] [address] Curtain Stitcher: Dioni Merlos MDGFR/1.73 sq M.predicted among non-blacks MDRD (S/P/Bld) [Vol rate/Area]mL/min/{1.73_m2}Normal>60[facility] HospitalComment on above:Result Comment: These results are not intended for [...] or following therapy that affects renal tubular secretion.Performed By: #### CRP, HCG, LIP, TROPI, CDP, CP #### [facility] [address] [place] [address] [employer]cher: Dioni Merlos MDGlucose [Mass/Vol]195 mg/[id number] Memorial HospitalComment on above:Performed By: #### CRP, HCG, LIP, TROPI, CDP, CP #### [facility] [address] [place] [address] [employer]cher: Dioni Merlos MDPotassium [Moles/Vol]3.8 mmol/LNormal3.7-5.3 [facility] HospitalComment on above:Performed By: #### CRP, HCG, LIP, TROPI, CDP, CP #### [facility] [address] [place] [address] Curtain Stitcher: Dioni Merlos MDProtein [Mass/Vol]7.0 g/dLNormal6.6-8.7Ohio Valley HospitalComment on above:Performed By: #### CRP, HCG, LIP, TROPI, CDP, CP #### [facility] [address] [place] [address] Curtain Stitcher: Dioni Merlos MDSodium [Moles/Vol]139 mmol/RWerydq731-472BhiswOhio Valley HospitalComment on above:Performed By: #### CRP, HCG, LIP, TROPI, CDP, CP #### [facility] [address] [place], [place] [id number] Curtain Stitcher: Dioni Merlos MDUrea nitrogen [Mass/Vol]9 mg/dLNormal-20Ohio Valley HospitalComment on above:Performed By: #### CRP, HCG, LIP, TROPI, CDP, CP #### [facility] [address] [place], [place] [id number] Curtain Stitcher: Dioni Merlos [facility] YUKONompuk healthcareensive Metabolic Panelon 11-22-2023 Albumin [Mass/Vol]4.1 g/dL3.5 - 5.2 g/dLBON SECOURS MERCY HEALTHAlbumin/Globulin [Mass ratio]1.0 {ratio}1.0 - 2.5B[facility] SEC[facility]RS Incluyeme.comY HEALTHALP [Catalytic activity/Vol]59 U/L35 - 104 U/LBON SECOURS MERCY HEALTHALT [Catalytic activity/Vol]13 U/L10 - 35 U/LBON SECOURS MERCY HEALTHAnion gap [Moles/Vol]14 mmol/L9 - 16 mmol/LBON SECOURS MERCY HEALTHAST [Catalytic activity/Vol]26 U/L10 - 35 U/LBON [facility]RS MERCY HEALTHBilirubin [Mass/Vol]0.2 mg/dL0.00 - 1.20 mg/dL [facility] HEALTHCalcium [Mass/Vol]9.3 mg/dL8.6 - 10.4 mg/dLBON SECOURS MERCY HEALTHChloride [Moles/Vol]102 mmol/L98 - 107 mmol/LBON SECOURS MERCY HEALTHCO2 [Moles/Vol]23 mmol/L20 - 31 mmol/LBON [facility]RS MERCY HEALTHCreatinine [Mass/Vol]0.6 mg/dL0.50 - 0.90 mg/dLBON SECOURS MERCY HEALTHEst, Glom Filt Rate- PINFBON SECOURS PROM[facility]FI[facility]ION[facility] HOSPITALY HEALTHComment on above: These results are not intended [...] therapy that affects renal tubular secretion. Glucose [Mass/Vol]195 mg/uUAebi41 - 99 mg/dLBON [facility] Interpretation and review of laboratory resultsAbnormalBON [facility] Potassium [Moles/Vol]3.8 mmol/L3.7 - 5.3 mmol/LBON SOUTHVIEW MEDICAL CENTERProtein [Mass/Vol]7.0 g/dL6.6 - 8.7 g/dLBON SOUTHVIEW MEDICAL CENTERSodium [Moles/Vol]139 mmol/L136 - 145 mmol/LBON SOUTHVIEW MEDICAL CENTERUrea nitrogen [Mass/Vol]9 mg/dL6 - 20 mg/dLBON SOUTHVIEW MEDICAL CENTERHCG Qualitative, Serumon 80-36-4969HDD ( test) QlNegativeNEGATIVEBON SOUTHVIEW MEDICAL CENTERComment on above: Specimens with hCG levels near the threshold of the test (25 mIU/mL) may give a negative or indeterminate result. In such cases, another test should be performed with a new specimen in 48-72 hours. If early is suspected clinically in this setting, correlation with quantitative serum b-hCG level is suggested. [facility] has confirmed the use of plasma for this test. This has not been cleared or approved by the U.S. Food and Drug Administration. The FDA has determined that such clearance is not necessary. [facility] MEDICAL CENTERHCG Screen, Bloodon 81-08-2932GPL Screen, BloodNegative NormalNEGMercy Rancho Springs Medical CenterComment on above:Result Comment: Specimens with hCG levels near the threshold of the test (25 mIU/mL) may give a negative or indeterminate result. In such cases, another test should be performed with a new specimen in 48-72 hours. If early is suspected clinically in this setting, correlation with quantitative serum b-hCG level is suggested. [facility] has confirmed the use of plasma for this test. This has not been cleared or approved by the U.S. Food and Drug Administration. The FDA has determined that such clearance is not necessary.Performed By: #### CRP, HCG, LIP, TROPI, CDP, CP #### [facility] [address] [place], [place] [id number] Curtain Stitcher: Dioni Merlos MDLipaseon 72-30-2749Zavtzo [Catalytic activity/Vol]37 U/L13 - 60 U/LBON [facility] HEALTHLipase [Catalytic activity/Vol]37 U/BDamthk26-65BzpjhOhio Valley HospitalComment on above: Performed By: #### CRP, HCG, LIP, TROPI, CDP, CP #### [facility] [address] [place] [address] Curtain Stitcher: Dioni Merlos MDNo Panel Informationon 45-93-6536XZB SOUTHVIEW MEDICAL CENTERPortable XR Chest AP single viewon 47-22-1822Um acute process. [facility] CONSOLIDATEDEXAMINATION: ONE XRAY VIEW OF THE CHEST 11/22/2023 5:11 am COMPARISON: None. HISTORY: ORDERING SYSTEM PROVIDED HISTORY: vomit TECHNOLOGIST PROVIDED HISTORY: vomit Reason for Exam: upr,cp,emesis FINDINGS: The lungs are without acute focal process. There is no effusion or pneumothorax. The cardiomediastinal silhouette is without acute process. The osseous structures are without acute process. [facility] Juan José Burch MD - 11/22/2023 EXAMINATION: ONE XRAY VIEW OF THE CHEST 11/22/2023 5:11 am COMPARISON: None. HISTORY: ORDERING SYSTEM PROVIDED HISTORY: vomit TECHNOLOGIST PROVIDED HISTORY: vomit Reason for Exam: upr,cp,emesis FINDINGS: The lungs are without acute focal process. There is no effusion or pneumothorax. The cardiomediastinal silhouette is without acute process. The osseous structures are without acute process. IMPRESSION: No acute process. [facility]OSPITALRadiology Study observation (narrative)[facility] HEALTHCARETroponinon 52-53-3908Lvnpftqe I.cardiac High sensitivity method [Mass/Vol]ng/L0 - 14 ng/LBON [facility]VIEW MEDICAL CENTERComment on above:High Sensitivity Troponin values cannot be compared with other Troponin methodologies.Troponin, High Sens<5Ppftxe4-81PcwggOhio Valley Hospital Comment on above:Result Comment: High Sensitivity Troponin values cannot be compared with other Troponin methodologies.Performed By: #### CRP, HCG, LIP, TROPI, CDP, CP #### [facility] [address] [place] [address] Curtain Stitcher: SIERRA Garg CHEST PORTABLEon 15-99-6049QB CHEST PORTABLE EXAMINATION: ONE XRAY VIEW OF [...] by: Juan José Mena MD 11/22/23 Final resultNormalOhio Valley HospitalUrinalysis - AUTOMATEDon 07-89-3837Lnfpndowhx (U)clearMadison [employer] Other Bilirubin Ql (U)[facility] [employer] Other Color (U)yellowMadison [employer] Other Glucose Ql (U)[facility] [employer] Other Hemoglobin Ql (U)largeMadison [employer] Other Ketones Ql (U)[facility] [employer] Other Leukocyte esterase Test strip Ql (U)moderateMadison [employer] Other Nitrite Ql (U)[facility] [employer] Other pH (U)7.0 [pH][facility] [employer] Other Protein Ql (U)[facility] [employer] Other Specific gravity (U) [Rel density]1.010[facility] Other Urobilinogen (U) [Mass/Vol]0.2 mg/dLBeckerSmith Medical Other Urinalysis - AUTOMATEDBeckerSmith Medical Other Urine culture routineOrdered By: Dalia Apple on 16-56-8155Ezvdgiwy identified Cx Nom (U)Escherichia coliUniversity Hospitals Beachwood Medical CenterQuick Strepon 02-23-2023S. pyogenes Org specific cx Ql (Throat) NegativeSunshine Heart Other Quick StrepSunshine Heart Other amphetamine Screen Ql (U)Ordered By: Kevin Gunn on 47-90-3377Fsxozcpxlrxd Ql (U)NegativeNegAvita Health System [facility] Barbiturates [Presence] in Urine by Screen methodOrdered By: Kevin Gunn on 26-42-2058Muilwkpawmfg Screen Ql (U)NegativeNegAvita Health System Galion HospitalBenzodiazepines Screen Ql (U)Ordered By: Kevin Gunn on 02-16-2023 Benzodiazepines Ql (U)NegativeNegAvita Health System Galion Hospital Benzoylecgonine [Presence] in Urine by Screen methodOrdered By: Kevin Gunn on 67-34-2830Iqpzbzbivnjovpp Screen Ql (U)NegativeNegAvita Health System Galion HospitalCannabinoids [Presence] in Urine by Screen methodOrdered By: Kevin Gunn on 25-40-9984Lvkdmkyazlib Screen Ql (U)PositiveNegativeUniversity Hospitals Beachwood Medical CenterComment on above:These are unconfirmed results and should not be used for legal purposes. Drug Cut-Off Concentration: AMPH 1000 ng/mL BEN 200 ng/mL WILLEM 200 ng/mL COCM 300 ng/mL OP 300 ng/mL PCP 25 ng/mL THC 20 ng/mLHCG ( test) IA.rapid Ql (U)Ordered By: Kevin Gunn on 66-71-3712BOO ( test) Ql (U)NegativeUniversity Hospitals Beachwood Medical CenterOpiates [Presence] in Urine by Screen methodOrdered By: Kevin Gunn on 10-31-1451Nzlxckj Screen Ql (U)NegativeNegativeUniversity Hospitals Beachwood Medical CenterPhencyclidine Screen Ql (U)Ordered By: Kevin Gunn on 47-54-4377Jfnvekjudxfbh Ql (U)Negative NegativeUniversity Hospitals Beachwood Medical CenterAmphetamine Screen Ql (U)Ordered By: Imoctavio Asaoctavio on 68-41-3341Vzdtfbazjnil Ql (U)NegativeNegAvita Health System Galion HospitalBarbiturates [Presence] in Urine by Screen methodOrdered By: Imad Asaad on 06-62-3656Fegzvezfdpuc Screen Ql (U)NegativeNegativeUniversity Hospitals Beachwood Medical CenterBenzodiazepines Screen Ql (U)Ordered By: Imad Asaad on 12-31-2022 Benzodiazepines Ql (U)NegativeNegAvita Health System [facility] Hospital Benzoylecgonine [Presence] in Urine by Screen methodOrdered By: Imad Asaad on 65-43-8932Hbrlcgblnhtvrfa Screen Ql (U)NegativeNegAvita Health System Galion HospitalCannabinoids [Presence] in Urine by Screen methodOrdered By: Imad Asaad on 07-02-7162Glalshxnlhnb Screen Ql (U)PositiveNegAvita Health System Galion HospitalComment on above:These are unconfirmed results and should not be used for legal purposes. Drug Cut-Off Concentration: AMPH 1000 ng/mL BEN 200 ng/mL WILLEM 200 ng/mL COCM 300 ng/mL OP 300 ng/mL PCP 25 ng/mL THC 20 ng/mLHCG ( test) IA.rapid Ql (U)Ordered By: Imad Asaad on 60-84-0128JVX ( test) Ql (U)NegativeUniversity Hospitals Beachwood Medical CenterOpiates [Presence] in Urine by Screen methodOrdered By: Imad Asaad on 24-54-0432Gghvgww Screen Ql (U)NegativeNegAvita Health System Galion HospitalPhencyclidine Screen Ql (U)Ordered By: Imad Asaad on 16-98-5355Sdwblcjtfmxbm Ql (U)Negative [facility] HospitalAlanine aminotransferase [Enzymatic activity/volume] in Serum or PlasmaOrdered By: Imad Asaad on 65-16-8162XGD [Catalytic activity/Vol]16 U/L7-52[facility] Medical CenterAlbumin [Mass/volume] in Serum or Plasma by Bromocresol green (BCG) dye binding metho Ordered By: Imad Asaad on 14-97-5930Isjyxwl BCG dye [Mass/Vol]3.9 g/dL3.5-5.7 [facility] Medical CenterAlkaline phosphatase [Enzymatic activity/volume] in Serum or PlasmaOrdered By: Imad Asaad on 28-96-0048QIZ [Catalytic activity/Vol]44 U/Q94-542CxmqimwgiUniversity Hospitals Beachwood Medical CenterAspartate aminotransferase [Enzymatic activity/volume] in Serum or PlasmaOrdered By: Imad Asaad on 96-85-3630YME [Catalytic activity/Vol]13 U/B92-68AliarztooUniversity Hospitals Beachwood Medical CenterBasophils Auto (Bld) [#/Vol]Ordered By: Imad Asaad on 12-30-2022 Basophils (Bld) [#/Vol]0.1 10*3/uL0.0-0.2FWilson Health Basophils/100 WBC Auto (Bld)Ordered By: Imad Asaad on 93-75-9179Xftibccir/100 WBC (Bld)1.1 %.[facility] Medical CenterBilirubin.direct [Mass/volume] in Serum or PlasmaOrdered By: Imad Asaad on 14-24-0443Dnshexhau.direct [Mass/Vol]0.10 mg/dL0.03-0.18FWilson HealthBilirubin.total [Mass/volume] in Serum or PlasmaOrdered By: Imad Asaad on 64-46-1383Poztmxgng [Mass/Vol]0.4 mg/dL0.3-1.0[facility] Medical CenterBlood Mycobacterium tuberculosis tuberculin stimulated gamma interferon detectionOrdered By: Imad Asaad on 12-30-2022M. tuberculosis tuberculin stim IFN-g Ql (Bld)See comment. [facility] Medical CenterComment on above:QuantiFERON-TB Gold Plus is a qualitative indirect test forM tuberculosis infection (including disease) and isintended for use in conjunction with risk assessment,radiography, and other medical and diagnostic evaluations.The QuantiFERON-TB Gold Plus result is determined bysubtracting the Nil value from either TB antigen (Ag)value. The Mitogen tube serves as a control for the test.M. tuberculosis tuberculin stim IFN-g Ql (Bld)0.13 [IU]/mL.[facility] Medical CenterM. tuberculosis tuberculin stim IFN-g Ql (Bld)0.10 [IU]/mL.[facility] Blood mitogen stimulated gamma interferon measurement (units/volume)Ordered By: [facility] on 98-14-5023Ljbkdeg stimulated gamma interferon Qn (Bld)>10.00 [IU]/mL.[facility] Medical CenterC reactive protein [Mass/volume] in Serum or PlasmaOrdered By: [facility] on 85-96-2407LTR [Mass/Vol]< 0.5 mg/dL 0.0-0.5FWilson HealthCalprotectin [Mass/mass] in StoolOrdered By: ad [facility] on 04-48-6652Oxxfozjyntfr (Stl) [Mass/Mass]230 ug/g0-120 [facility] Medical CenterComment on above:Concentration Interpretation Follow-Up< 5 - 50 ug/g Normal None>50 -120 ug/g Borderline Re-evaluate in 4-6 weeks >120 ug/g Abnormal Repeat as clinically indicatedPerformed at: - [facility] [address] [id number] Director: Danielle Olson MD, Phone: [phone] Auto (Bld) [#/Vol]Ordered By: [facility] on 41-71-6051Ebzdvfpwiyq (Bld) [#/Vol]0.1 10*3/uL0.0-0.45[facility] Medical CenterEosinophils/100 WBC Auto (Bld)Ordered By: ad Asaad on 94-15-8268Ridugpircyt/100 WBC (Bld)0.8 %.[facility] Erythrocyte distribution width Auto (RBC) [Ratio]Ordered By: [facility] on 11-65-3517Dpfigkqlbqo distribution width (RBC) [Ratio]15.3 %11.9-15.3FWilson HealthGlobulin Calc (S) [Mass/Vol]Ordered By: ad Asaad on 59-92-3890Ubnmpgkb (S) [Mass/Vol]2.0 g/dLUniversity Hospitals Beachwood Medical Center Hematocrit Auto (Bld) [Volume fraction]Ordered By: Imad Asaad on 12-30-2022 Hematocrit (Bld) [Volume fraction]39.4 %34.0-46.4FWilson HealthHemoglobin [Mass/volume] in BloodOrdered By: Imad Asaad on 12-30-2022 Hemoglobin (Bld) [Mass/Vol]13.1 g/dL11.8-15.4FWilson Health Hepatitis B virus surface Ag [Presence] in Serum or Plasma by ImmunoassayOrdered By: Imad Asaad on 35-12-0299XUH surface Ag IA QlNegativeNegativeUniversity Hospitals Beachwood Medical CenterLeukocytes [#/volume] corrected for nucleated erythrocytes in Blood by Automated counOrdered By: Imad Asaad on 13-06-3709GXC corrected for nucl RBC Auto (Bld) [#/Vol]8.1 10*3/uL3.8-11.6FWilson HealthLymphocytes Auto (Bld) [#/Vol]Ordered By: Imad Asaad on 12-30-2022 Lymphocytes (Bld) [#/Vol]1.9 10*3/uL1.00-4.8[facility] Lymphocytes/100 WBC Auto (Bld)Ordered By: Imad Asaad on 12-30-2022 Lymphocytes/100 WBC (Bld)22.9 %.[facility] HospitalH Auto (RBC) [Entitic mass]Ordered By: Imad Asaad on 45-52-0453ZFY (RBC) [Entitic mass]30.9 pg24.7-34.3FWilson HealthMCHC Auto (RBC) [Mass/Vol]Ordered By: Imad Asaad on 64-95-9931IRCD (RBC) [Mass/Vol]33.2 g/dL32.0-35.0[facility] Medical CenterMCV Auto (RBC) [Entitic vol]Ordered By: Imad Asaad on 95-40-2273AAE (RBC) [Entitic vol]93.0 nM93-784JlbrhemxiUniversity Hospitals Beachwood Medical Center Monocytes Auto (Bld) [#/Vol]Ordered By: Imad Asaad on 35-95-9647Oznextrev (Bld) [#/Vol]0.5 10*3/uL0.0-0.8[facility] Medical CenterMonocytes/100 WBC Auto (Bld)Ordered By: Jennifer Brody on 06-18-4366Ospbulfnh/100 WBC (Bld)5.7 %.[facility] Medical CenterMycobacterium tuberculosis stimulated gamma interferon [Interpretation] in Blood QualOrdered By: Jennifer Brody on 12-30-2022M. tuberculosis stim IFN-g Ql (Bld) [Interp]NegativeNegativeUniversity Hospitals Beachwood Medical CenterComment on above:No response to M tuberculosis antigens detected.Infection with M tuberculosis is unlikely, but highriskindividuals should be considered for additional testing(ATS/IDSA/CDC Clinical Practice Guidelines, 2017). Thereference range is an Antigen minus Nil result of <0.35IU/mL.The specimen received for QuantiFERON testing was incubatedby the ordering institution. Specific procedures outlinedin ourDirectory of Services and in the package insert forthe QuantiFERON Gold (In Tube) test must be follo wed toenable for proper stimulation of cells for the productionof interferon gamma. Chemiluminescence immunoassaymethodologyPerformed at: [facility] [place], [place] [id number] Director: Derik Decker PhD, Phone: [phone] Auto (Bld) [#/Vol]Ordered By: Jennifer Brody on 10-57-0969Kodzbfnlyro (Bld) [#/Vol]5.7 10*3/uL1.8-7.7FWilson HealthNeutrophils/100 WBC Auto (Bld)Ordered By: Jennifer Brody on 12-30-2022 Neutrophils/100 WBC (Bld)69.5 %.[facility] CenterNo Panel InformationOrdered By: Jennifer Brody on 10-87-2420Jmkltbqgb B Core Total Antibody NegativeNegativeUniversity Hospitals Beachwood Medical CenterComment on above:Performed at: [facility] [address] [place], [place] [id number] Director: Derik Decker PhD, Phone: [phone] erythrocytes [Presence] in Blood by Automated countOrdered By: Imad Asaad on 11-51-0231Epomqbifg RBC Auto Ql (Bld) 0.1 /100{WBC}0-0.5FWilson HealthPlatelet mean volume Auto (Bld) [Entitic vol]Ordered By: Imad Asaad on 16-01-8076Iwvksbaz mean volume (Bld) [Entitic vol]7.7 fL6.3-10.7FWilson HealthPlatelets Auto (Bld) [#/Vol]Ordered By: Imad Asaad on 10-43-7436Srynssllp (Bld) [#/Vol]261 10*3/eA682-077HjdsmuyuvUniversity Hospitals Beachwood Medical CenterProtein [Mass/volume] in Serum or PlasmaOrdered By: Imad Asaad on 97-30-4502Pxbpbez [Mass/Vol]5.9 g/dL6.4-8.9 [facility] Medical CenterRBC Auto (Bld) [#/Vol]Ordered By: Imad Asaad on 79-84-7586PDZ (Bld) [#/Vol]4.23 10*6/uL3.60-5.00[facility], Beachwooderum hepatitis B virus surface antibody detectionOrdered By: Imad Asaad on 17-11-0061GRU surface Ab Ql (S)Non-Reactive.[facility] Comment on above:Non Reactive: Inconsistent with immunity, less than 10 mIU/mL Reactive: Consistent with immunity, greater than 9.9 mIU/mLSerum or plasma albumin/globulin mass ratioOrdered By: Imad Asaad on 24-04-7210Miwyvjk/Globulin [Mass ratio]2.0 {ratio}[facility], Beachwooderum or plasma non- glucuronidated bilirubin measurement (mass/volume)Ordered By: Imad Asaad on 00-59-9586Cimaoiibo.indirect [Mass/Vol]0.3 mg/dLUniversity Hospitals Beachwood Medical CenterWBC Auto (Bld) [#/Vol]Ordered By: Imad Asaad on 64-97-8492IEU (Bld) [#/Vol]8.1 10*3/uL3.8-11.6FWilson HealthWhole blood measurement of Mycobacterium tuberculosis stimulated gamma interferon relOrdered By: Jennifer Brody on 12-30-2022M. tuberculosis stim IFN-g by CD4+ CD8+ T-cells corrected for background Qn (Bld)0.13 [IU]/mL.[facility] Alanine aminotransferase [Enzymatic activity/volume] in Serum or PlasmaOrdered By: Dalia Apple on 01-05-4770YDA [Catalytic activity/Vol]23 U/L7-52[facility] Medical CenterAlbumin [Mass/volume] in Serum or Plasma by Bromocresol green (BCG) dye binding methoOrdered By: Dalia Apple on 15-26-9457Ghgmext BCG dye [Mass/Vol]4.4 g/dL3.5-5.7FWilson HealthAlkaline phosphatase [Enzymatic activity/volume] in Serum or PlasmaOrdered By: Dalia Apple on 82-32-7596ZHZ [Catalytic activity/Vol]44 U/T35-422TqnmdvyidUniversity Hospitals Beachwood Medical CenterAspartate aminotransferase [Enzymatic activity/volume] in Serum or PlasmaOrdered By: Dalia Apple on 75-49-5206OVO [Catalytic activity/Vol]16 U/L 13-39[facility] Medical CenterBasophils Auto (Bld) [#/Vol]Ordered By: Dalia Apple on 83-95-0647Lqdajrxjv (Bld) [#/Vol]0.1 10*3/uL0.0-0.2FWilson HealthBasophils/100 WBC Auto (Bld)Ordered By: Dalia Apple on 51-23-6963Pcrtxlcqy/100 WBC (Bld)0.5 %.[facility] Bilirubin.total [Mass/volume] in Serum or PlasmaOrdered By: Dalia Apple on 00-98-5554Tbgjbssdi [Mass/Vol]0.4 mg/dL0.3-1.0[facility] Calcium [Mass/volume] in Serum or PlasmaOrdered By: Dalia Apple on 12-14-2022 Calcium [Mass/Vol]9.7 mg/dL8.6-10.3FWilson HealthCarbon dioxide, total [Moles/volume] in Serum or PlasmaOrdered By: Dalia Apple on 61-38-2086AC9 [Moles/Vol]28.1 mmol/L21.0-31.0[facility] Chloride [Moles/volume] in Serum or PlasmaOrdered By: Dalia Apple on 12-14-2022 Chloride [Moles/Vol]101 mmol/J96-262BvoxpnlxtUniversity Hospitals Beachwood Medical CenterCreatinine [Mass/volume] in Serum or PlasmaOrdered By: Dalia Apple on 52-69-2698Cywaamtbhs [Mass/Vol]0.62 mg/dL0.60-1.20[facility] Medical CenterEosinophils Auto (Bld) [#/Vol]Ordered By: Dalia Apple on 21-47-5653Rtbjsopdmgj (Bld) [#/Vol]0.0 10*3/uL0.0-0.45[facility] CenterEosinophils/100 WBC Auto (Bld) Ordered By: Dalia Apple on 98-97-6528Gszfnfaiosg/100 WBC (Bld)0.0 %.[facility] Medical CenterErythrocyte distribution width Auto (RBC) [Ratio]Ordered By: Dalia Apple on 07-48-4399Cuhkocylbjg distribution width (RBC) [Ratio]15.1 % 11.9-15.3FWilson HealthGlobulin Calc (S) [Mass/Vol]Ordered By: Dalia Apple on 03-40-7097Eqoiggxe (S) [Mass/Vol]2.7 g/dLUniversity Hospitals Beachwood Medical CenterGlucose [Mass/volume] in Serum or PlasmaOrdered By: Dalia Apple on 35-46-0071Zqiuyur [Mass/Vol]66 mg/sN42-375LzypfzkhqUniversity Hospitals Beachwood Medical Center Comment on above:ADA recommended reference rangeRandom Glucose Reference Range is dependent on time and content of last meal. Glucose of more than 200 mg/dL in a nonstressed, ambulatory subject supports the diagnosisof Diabetes Mellitus. Hematocrit Auto (Bld) [Volume fraction]Ordered By: Dalia Apple on 12-14-2022 Hematocrit (Bld) [Volume fraction]39.7 %34.0-46.4FWilson HealthHemoglobin [Mass/volume] in BloodOrdered By: Dalia Apple on 12-14-2022 Hemoglobin (Bld) [Mass/Vol]13.2 g/dL11.8-15.4FWilson Health Leukocytes [#/volume] corrected for nucleated erythrocytes in Blood by Automated counOrdered By: Dalia Apple on 08-80-8489TXO corrected for nucl RBC Auto (Bld) [#/Vol]11.1 10*3/uL3.8-11.6FWilson HealthLymphocytes Auto (Bld) [#/Vol]Ordered By: Dalia Apple on 51-92-1509Fzjhebglkvf (Bld) [#/Vol]0.9 10*3/uL1.00-4.8[facility] Medical CenterLymphocytes/100 WBC Auto (Bld) Ordered By: Dalia Apple on 96-29-2723Ypnrukaurts/100 WBC (Bld)8.3 %.[facility] HospitalH Auto (RBC) [Entitic mass]Ordered By: Dalia Apple on 26-62-3673UVE (RBC) [Entitic mass]30.5 pg24.7-34.3FWilson HealthMCHC Auto (RBC) [Mass/Vol]Ordered By: Dalia Apple on 26-72-2545ZAFO (RBC) [Mass/Vol]33.2 g/dL32.0-35.0[facility] Medical CenterMCV Auto (RBC) [Entitic vol]Ordered By: Dalia Apple on 29-11-4184WOS (RBC) [Entitic vol]92.1 fS60-469YyrgwjbyaUniversity Hospitals Beachwood Medical CenterMagnesium [Mass/volume] in Serum or PlasmaOrdered By: Dalia Apple on 81-23-1188Iqvwzigeq [Mass/Vol]1.9 mg/dL1.9-2.7 [facility] CenterMonocytes Auto (Bld) [#/Vol]Ordered By: Dalia Apple on 41-84-8910Avrvulovg (Bld) [#/Vol]0.6 10*3/uL0.0-0.8[facility] CenterMonocytes/100 WBC Auto (Bld)Ordered By: Dalia Apple on 12-14-2022 Monocytes/100 WBC (Bld)5.5 %.[facility] Medical CenterNeutrophils Auto (Bld) [#/Vol]Ordered By: Dalia Apple on 80-71-6167Zdbgyfifjek (Bld) [#/Vol]9.5 10*3/uL1.8-7.7FWilson HealthNeutrophils/100 WBC Auto (Bld) Ordered By: Dalia Apple on 98-65-4292Tovbmoyaiyl/100 WBC (Bld)85.7 %.[facility] CenterNo Panel InformationOrdered By: Dalia Apple on 57-60-9585Zcnywdvqk GFR (CKD-EPI)> 60.0 mL/MinUniversity Hospitals Beachwood Medical Center Pharmacy Creatinine Clearance (ChemN/[facility] HospitalNucleated erythrocytes [Presence] in Blood by Automated countOrdered By: Dalia Apple on 53-98-9710Nidkbgfms RBC Auto Ql (Bld)0.0 /100{WBC}0-0.5FWilson HealthPlatelet mean volume Auto (Bld) [Entitic vol]Ordered By: Dalia Apple on 32-66-5509Kexqeedw mean volume (Bld) [Entitic vol]7.5 fL6.3-10.7 [facility] Medical CenterPlatelets Auto (Bld) [#/Vol]Ordered By: Dalia Apple on 30-98-2336Edtlshblt (Bld) [#/Vol]292 10*3/hT782-472TppzwvmrzUniversity Hospitals Beachwood Medical CenterPotassium [Moles/volume] in Serum or PlasmaOrdered By: Dalia Apple on 75-15-9092Rvdnrckhy [Moles/Vol]4.0 mmol/L3.5-5.1FWilson HealthProtein [Mass/volume] in Serum or PlasmaOrdered By: Dalia Apple on 95-45-5465Wvsrwai [Mass/Vol]7.1 g/dL6.4-8.9[facility] [facility] RBC Auto (Bld) [#/Vol]Ordered By: Dalia Apple on 81-34-2121RHA (Bld) [#/Vol] 4.31 10*6/uL3.60-5.00[facility] Beachwooderum or plasma albumin/globulin mass ratioOrdered By: Dalia Apple on 12-14-2022 Albumin/Globulin [Mass ratio]1.6 {ratio}[facility] Beachwooderum or plasma anion gap determinationOrdered By: Dalia Apple on 43-86-4798Evolw gap [Moles/Vol]9.9 mmol/L6.0-15.0[facility] Beachwoododium [Moles/volume] in Serum or PlasmaOrdered By: Dalia Apple on 26-97-6940Rahotw [Moles/Vol]135 mmol/Y149-142RwwfxiylbUniversity Hospitals Beachwood Medical CenterUrea nitrogen [Mass/volume] in Serum or PlasmaOrdered By: Dalia Apple on 41-91-7962Rxyn nitrogen [Mass/Vol]17 mg/dL7-25[facility] CenterWBC Auto (Bld) [#/Vol]Ordered By: Dalia Apple on 42-49-6105WDQ (Bld) [#/Vol]11.1 10*3/uL 3.8-11.6FWilson HealthPREG HCG QUALon 80-12-8137RUKQVQOQT, QUALNegativeNormalNEGATIVEThe [facility] - ColumbusComment on above:Performed By: #### PREG #### [facility] [address] [place] [address] Dr. Juliet Barton AUTO DIFFon 33-12-8738FJGU #0.0 103/ulNormal0.0-0.1The [facility] ColumbusComment on above:Performed By: #### CBC #### [facility] [address] [address] [address] Juliet Balbuenasophils/100 WBC (Bld)0.4 %Normal0.2-2.0The [facility] Comment on above:Performed By: #### CBC #### [facility] [address] [place] [address] Dr. Juliet Her #0.1 103/ulNormal0.0-0.7The [facility] - ColumbusComment on above: Performed By: #### CBC #### [facility] [address] [place] [address] Dr. Juliet Guzmánosinophils/100 WBC (Bld)0.6 %Critically low0.9-7.0The [facility] Hospitalment on above:Performed By: #### CBC #### [facility] [address] [place] [address] Dr. Juliet Guzmánrythrocyte distribution width (RBC) [Ratio]13.6 %Ouzjit16.0-15.0 The [facility] ColumbusComment on above:Performed By: #### CBC #### [facility] [address] [place] [address] Dr. Juliet MedinaHematocrit (Bld) [Volume fraction]38.4 %Iqbffu67.0-48.0The [facility] - ColumbusComment on above:Performed By: #### CBC #### [facility] [address] [place] [address] Dr. Juliet MedinaHemoglobin (Bld) [Mass/Vol]13.1 g/oIVxyqsg87.0-16.0The [facility] on above:Performed By: #### CBC #### [facility] [address] [place] [address] Dr. Juliet Rojas #0.02 10e3/ulNormal0.00-0.03The [facility] on above:Performed By: #### CBC #### [facility] [address] [place] [address] Dr. Juliet MedinaIG %0.3 %Normal0.0-0.5The [facility] on above: Performed By: #### CBC #### [facility] [address] [place] [address] Dr. Juliet VazquezMPH #1.3 103/ulNormal1.2-3.8The [facility] ColumbusComup [facility] system on above:Performed By: #### CBC #### [facility] [address] [place] [address] Dr. Juliet Vazquezmphocytes/100 WBC (Bld)16.5 %Critically low20.5-60.0The [facility] Hospitalment on above:Performed By: #### CBC #### [facility] [address] [place] [address] Dr. Juliet CooperUAL DIFF REQNONormalThe [facility] Hospital - ColumbusComment on above: Performed By: #### CBC #### [facility] [address] [place] [address] Dr. Juliet Shah (RBC) [Entitic mass]31.1 ppFgfdpf09.7-34.0The [facility] ColumbusComment on above:Performed By: #### CBC #### [facility] [address] [place] [address] Dr. Juliet Shah (RBC) [Mass/Vol]34.1 g/rLRypljg75.9-35.2The [facility] ColumbusComment on above:Performed By: #### CBC #### [facility] [address] [place] [address] Dr. Juliet Shah (RBC) [Entitic vol]91.2 xJYyklie81.0-99.0The [facility] ColumbusComment on above:Performed By: #### CBC #### [facility] [address] [place] [address] Dr. Juliet Patel #0.6 103/ulNormal0.3-0.8The [facility] ColumbusComment on above:Performed By: #### CBC #### [facility] [address] [place] [address] Dr. Juliet Blakelyocytes/100 WBC (Bld)7.7 %Normal1.7-12.0The [facility] Comment on above:Performed By: #### CBC #### [facility] [address] [place] [address] Dr. Juliet Brown #5.8 103/ulNormal1.4-6.5The [facility] ColumbusComment on above:Performed By: #### CBC #### [facility] [address] [place] [address] Dr. Juliet Marvinutrophils/100 WBC (Bld)74.5 %Qfmndt70.0-75.0The [facility] - ColumbusComment on above:Performed By: #### CBC #### [facility] [address] [address] [address] Juliet MedinaPlatelet mean volume (Bld) [Entitic vol]9.2 fLCritically low 9.5-13.5The [facility] ColumbusComment on above:Performed By: #### CBC #### [facility] [address] [place] [address] Dr. Juliet MedinaPLT296 103/maVpjxzv541-600Eti [facility] on above: Performed By: #### CBC #### [facility] [address] [address] [address] Juliet MedinaRBC4.21 106/ulNormal4.20-5.40The [facility] on above:Performed By: #### CBC #### [facility] [address] [place] [address] Dr. Juliet MedinaWBC7.8 103/ulNormal4.0-11.0The [facility] on above: Performed By: #### CBC #### [facility] [address] [place] [address] Dr. Juliet MedinaCT FACIAL BONES WO CONon 85-02-2982UO FACIAL BONES WO CON EXAMINATION: CT FACIAL [...] Electronically authenticated by: CHARLIE ELIZABETH Date: 2022-09-29 21:30[facility] FoundationXR CSPINE 2_3 VIEWSon 99-49-6427UD CSPINE 2_3 VIEWSEXAM: XR CSPINE 2_3 VIEWS HISTORY: Pain COMPARISON: [...] Electronically authenticated by: IVONE LABOY Date: 2022-01-10 16:28[facility] FoundationOtheron 90-63-7439By acute x-ray abnormality of the left knee. [employer] Workstation ID: [id number]: XR KNEE LEFT 2 VIEWS (STANDARD) 06/19/2020 [...] stress reaction, fracture or dislocation. No degenerative spurring.[facility] Interface, Rad In [facility] Speechq - 06/19/2020 3:32 PM EST EXAMINATION: [...] acute x-ray abnormality of the left knee. [employer] Workstation ID: [id number] KNEE LEFT 2 VIEWS (STANDARD)on 81-25-5629FK KNEE LEFT 2 VIEWS (STANDARD)EXAMINATION: XR KNEE LEFT 2 VIEWS (STANDARD) 06/19/2020 [...] acute x-ray abnormality of the left knee. [employer] Workstation ID: [id number] Dictated by: AMY WRIGHT on WedJun 19, 2020 2:51:25 PM EST Transcribed by: BERT PIEDRA on WedJun 19, 2020 3:23:02 PM EST Finalized by: AMY WRIGHT on WedJun 19, 2020 3:29:26 PM [facility] HospitalComment on above:Order Comment: Injury/Trauma or Illness?:Injury/Trauma How long have you had these symptoms (acute/chronic)?:Chronic Reason for exam?:posterior and anterior pain History of cancer?:no Surgeries, chemotherapy, or radiation?:no Type of Exam?:Initial Mechanism of injury?:heard a pop' while running 8 months ago/ pain sinceCBCon 92-22-4043Lpbdbruuvuv distribution width (RBC) [Entitic vol]14.4 %11.6 - 14.8 % [facility] HospitalHematocrit (Bld) [Volume fraction]35.7 %Low36 - 46 %[facility] Hemoglobin (Bld) [Mass/Vol]11.6 g/dLLow12 - 16 g/dLOhioHealthInterpretation and review of laboratory resultsAbnormalOhioHealthMCH (RBC) [Entitic mass]31.1 pg26 - 34 pgOhioHealthMCHC (RBC) [Mass/Vol]32.5 g/dL31 - 37 g/dLOhioHealthMCV (RBC) [Entitic vol]95.7 fL80 - 100 fLOhioHealthNucleated RBC (Bld) [#/Vol]0.00 10*3/uL OhioHealthNucleated RBC/100 WBC (Bld) [Ratio]0.0 %OhioHealthPlatelet mean volume (Bld) [Entitic vol]9.4 fL9.4 - 12.4 fLOhioHealthPlatelets (Bld) [#/Vol]359 10*3/uLOhioHealthRBC (Bld) [#/Vol]3.73 10*6/uLLowOhioHealthWBC (Bld) [#/Vol]5.37 10*3/uLOhioHealthCRP, Inflammationon 92-62-5986IAB [Mass/Vol]mg/L<=10.0 mg/L OhioHealthChem 7on 88-60-5254Nhmkt gap [Moles/Vol]8 mmol/LLow10 - 20 mmol/L OhioHealthChloride [Moles/Vol]109 mmol/LHigh98 - 108 mmol/LOhioHealthCreatinine [Mass/Vol]0.51 mg/dL0.40 - 1.10OhioHealthGFR/1.73 sq M predicted among non- blacks MDRD (S/P/Bld) [Vol rate/Area]The eGFR should be used for monitoring renal function only and not for medication dosing.OhioHealthGFR/1.73 sq M.predicted CKD-EPI (S/P/Bld) [Vol rate/Area]128>=60 mL/min/1.73 r8IuufTxqqzv Glucose [Mass/Vol]91 mg/dL65 - 99 mg/dLOhioHealthHCO3 [Moles/Vol]29 mmol/L21 - 32 mmol/LOhioHealthInterpretation and review of laboratory resultsAbnormal OhioHealthPotassium [Moles/Vol]4.6 mmol/L3.5 - 5.1 mmol/LOhioHealthSodium [Moles/Vol]141 mmol/L135 - 145 mmol/LOhioHealthUrea nitrogen [Mass/Vol]2 mg/dL Low8 - 25 mg/dLOhioHealthUrea nitrogen/Creatinine [Mass ratio]3.9 mg/mgLow OhioHealthHEPATITIS B SURFACE ANTIGENon 32-43-4261KZL surface Ag Ql (S)Negative NegativeOhioHealthInterpretation and review of laboratory resultsNormal OhioHealthTest performed using Luis FER immunoassay systemOhioHealthMagnesium Levelon 85-78-8319Ildyyinbm [Mass/Vol]2.1 mg/dL1.6 - 2.4 mg/dLOhioHealthOtheron 80-45-7438Fkwxhehvgrpwpe and review of laboratory resultsNormalOhioHealth Phosphoruson 93-68-6027Xeuufnjrx [Mass/Vol]4.1 mg/dL2.7 - 4.5 mg/dLOhioHealthXR ABDOMEN 2 VIEWS WITH CHEST 1 VIEWon 54-16-9102Vtfqehmbnv small bowel distention in the left midabdomen is seen in this patient who has had prior surgery for Crohn's disease in the right lower quadrant. A continued inflammatory process in the right lower quadrant with partial obstruction in the small bowel is of concern. [facility] Workstation ID:[id number], Rad In [facility] - 06/04/2020 10:47 AM EST EXAMINATION: XR [...] lung cordoba seem clear. The heart is stable.No free air in the abdomen is seen. [...] in the right lower quadrant. No organomegaly canbe seen. IMPRESSION: Increasing small bowel distention in the left midabdomen is seen in this patient who has had prior surgery for Crohn's disease in the right lower quadrant. A continued inflammatory process in the right lower quadrant with partial obstruction in the small bowel is of concern. [facility] Workstation ID: [id number]: XR ABDOMEN 2 VIEWS WITH CHEST 1 VIEW 06/04/2020 7:30 AM HISTORY: ORDERING SYSTEM PROVIDED HISTORY: abd pain, TECHNOLOGIST PROVIDED HISTORY: Illness/Other Reason for exam: abdomianl pain C ancer History: no Surgery, RadiationHistory: no Encounter Type: Ongoing Additional signs and symptoms: no ORDERING SYSTEM PROVIDED DIAGNOSIS CODES: E87.6 Hypokalemia K50.919 Crohn's disease with complication, unspecified gastrointestinal tract location (HCC) R11.2 Nausea and vomiting, intractability of vomiting not specified, unspecified vomiting type COMPARISON: The CT is compared of 06/02/2020.The abdominal series of 06/01/2020 is reviewed also. FINDINGS: The abdominal series consists of a portable AP upright view of the chest and then supine and upright views of the abdomen were obtained.In the chest, the lung cordoba seem clear. [...] 06/01/2020 at which time it was 3.6 cm.Patient has a diagnosis of Crohn's disease with prior surgery. There is some opaque densities whichmay be sutures in the right lower quadrant. No organomegaly can be seen.[facility] WITH CHEST 1 VIEW [...] in the small bowel is of concern. [facility] Workstation ID: [id number] Dictated by: TETE COTTER on WedJun 04, 2020 9:19:17 AM EST Transcribed by: HANNAH METZ on WedJun 04, 2020 9:45:51 AM EST Finalized by: TETE COTTER on WedJun 04, 2020 10:44:40 AM [facility] HospitalComment on above:Order Comment: Injury/Trauma or Illness?:Illness/Other How long have you had these symptoms (acute/chronic)?:Acute Reason for exam?:abdomianl pain History of cancer?:no Surgeries, chemotherapy, or radiation?:no Type of Exam?:Ongoing Additional signs and symptoms?:noBasic Metabolic Panelon 10-96-0193Ngkpc gap [Moles/Vol]7 mmol/LLow10 - 20 mmol/LOhioHealthCalcium [Mass/Vol]8.2 mg/dLLow8.4 - 10.2 mg/dLOhioHealthChloride [Moles/Vol]111 mmol/LHigh98 - 108 mmol/L [facility] HospitalCreatinine [Mass/Vol]0.53 mg/dL0.40 - 1.10OhioHealthGFR/1.73 sq M predicted among non-blacks MDRD (S/P/Bld) [Vol rate/Area]The eGFR should be used for monitoring renal function only and not for medication dosing.[facility] GFR/1.73 sq M.predicted CKD-EPI (S/P/Bld) [Vol rate/Area]126>=60 mL/min/1.73 m2 OhioHealthGlucose [Mass/Vol]112 mg/zLCyoe81 - 99 mg/dLOhioHealthHCO3 [Moles/Vol] 29 mmol/L21 - 32 mmol/LOhioHealthInterpretation and review of laboratory results AbnormalOhioHealthPotassium [Moles/Vol]4.8 mmol/L3.5 - 5.1 mmol/LOhioHealth Sodium [Moles/Vol]142 mmol/L135 - 145 mmol/LOhioHealthUrea nitrogen [Mass/Vol] mg/dLLow8 - 25 mg/dLOhioHealthUrea nitrogen/Creatinine [Mass ratio][facility] Comment on above:Unable to calculate; a result component is outside measurable limits.Magnesium Levelon 40-63-2111Srdjljpnt [Mass/Vol]2.0 mg/dL1.6 - 2.4 mg/dL Luther[facility] HospitalMint Green Topon 40-81-7252Vjteq TubeHold for add-ons.[facility] Comment on above:Auto resulted.Otheron 18-30-4551Ikvzjogggluurz and review of laboratory resultsNormalOhioHealthStool/GI PCR Panelon 96-91-9225Mcubockpuc 40+41 DNA CARLOTTA+non-probe Ql (Stl)Not DetectedNot DetectedOhioHealthAstrovirus subtypes 1-8 RNA CARLOTTA+non-probe Ql (Stl)Not DetectedNot DetectedOhioHealthC. cayetanensis DNA CARLOTTA+non-probe Ql (Stl)Not DetectedNot DetectedOhioHealthC. coli+jejuni+upsaliensis DNA CARLOTTA+non-probe Ql (Stl)Not DetectedNot Detected OhioSt. Mary[facility] Iront[facility] CampusC. difficile toxin A+B tcdA+tcdB genes CARLOTTA+non-probe Ql (Stl)Not DetectedNot DetectedOhioHealthCryptosporidium sp DNA CARLOTTA+non-probe Ql (Stl)Not DetectedNot DetectedOhioHealthE. coli enteroaggregative Mendy plasmid aggR+aatA genes CARLOTTA+non-probe Ql (Stl)Not DetectedNot DetectedOhioHealthE. coli enteropathogenic eae gene CARLOTTA+non-probe Ql (Stl)Not DetectedNot Detected OhioHealthE. coli enterotoxigenic ltA+st1a+st1b genes CARLOTTA+non-probe Ql (Stl)Not DetectedNot DetectedOhioHealthE. coli stx1+stx2 genes CARLOTTA+non-probe Ql (Stl)Not DetectedNot DetectedOhioHealthE. histolytica DNA CARLOTTA+non-probe Ql (Stl)Not DetectedNot DetectedOhioHealthG. lamblia DNA CARLOTTA+non-probe Ql (Stl)Not Detected Not DetectedOhioHealthNorovirus genogroup I+II RNA CARLOTTA+non-probe Ql (Stl)Not DetectedNot DetectedOhioHealthP. shigelloides DNA CARLOTTA+non-probe Ql (Stl)Not DetectedNot DetectedOhioHealthRotavirus A RNA CARLOTTA+non-probe Ql (Stl)Not Detected Not DetectedOhioHealthS. enterica+bongori DNA CARLOTTA+non-probe Ql (Stl)Not Detected Not DetectedOhioHealthSapovirus genogroups I+II+IV+V RNA CARLOTTA+non-probe Ql (Stl) Not DetectedNot DetectedOhioHealthShigella species+EIEC invasion plasmid antigen H ipaH gene CARLOTTA+non-probe Ql (Stl)Not DetectedNot DetectedOhioHealthV. cholerae DNA CARLOTTA+non-probe Ql (Stl)Not DetectedNot DetectedOhioHealthV. cholerae+parahaemolyticus+vulnificus DNA CARLOTTA+non-probe Ql (Stl)Not DetectedNot DetectedOhioHealthY. enterocolitica DNA CARLOTTA+non-probe Ql (Stl)Not DetectedNot DetectedOhioHealthResults of PCR testing for stool pathogens must [...] parasitic infections as well as select bacterial infections.[facility] Metabolic Panelon 06-02-2020 Anion gap [Moles/Vol]5 mmol/LLow10 - 20 mmol/LOhioHealthCalcium [Mass/Vol]8.0 mg/dLLow8.4 - 10.2 mg/dLOhioHealthChloride [Moles/Vol]112 mmol/LHigh98 - 108 mmol/LOhioHealthCreatinine [Mass/Vol]0.51 mg/dL0.40 - 1.10OhioHealthGFR/1.73 sq M predicted among non-blacks MDRD (S/P/Bld) [Vol rate/Area]The eGFR should be used for monitoring renal function only and not for medication dosing.[facility] GFR/1.73 sq M.predicted CKD-EPI (S/P/Bld) [Vol rate/Area]128>=60 mL/min/1.73 m2 [facility] HospitalGlucose [Mass/Vol]123 mg/eFYcqx89 - 99 mg/dLOhioHealthHCO3 [Moles/Vol] 29 mmol/L21 - 32 mmol/LOhioHealthInterpretation and review of laboratory results AbnormalOhioHealthPotassium [Moles/Vol]5.2 mmol/LHigh3.5 - 5.1 mmol/LOhioHealth Sodium [Moles/Vol]141 mmol/L135 - 145 mmol/LOhioHealthUrea nitrogen [Mass/Vol] mg/dLLow8 - 25 mg/dLOhioHealthUrea nitrogen/Creatinine [Mass ratio][facility] Comment on above:Unable to calculate; a result component is outside measurable limits.CBCon 02-74-7322Binbosmxath distribution width (RBC) [Entitic vol]14.4 % 11.6 - 14.8 %[facility] HospitalHematocrit (Bld) [Volume fraction]30.8 %Low36 - 46 % [facility] HospitalHemoglobin (Bld) [Mass/Vol]10.0 g/dLLow12 - 16 g/dLLutheran Hospital Interpretation and review of laboratory resultsAbnormalOhioHealthMCH (RBC) [Entitic mass]31.1 pg26 - 34 pgOhioHealthMCHC (RBC) [Mass/Vol]32.5 g/dL31 - 37 g/dLOhioHealthMCV (RBC) [Entitic vol]95.7 fL80 - 100 fLOhioHealthNucleated RBC (Bld) [#/Vol]0.01 10*3/uLHighOhioHealthNucleated RBC/100 WBC (Bld) [Ratio]0.5 % OhioHealthPlatelet mean volume (Bld) [Entitic vol]9.6 fL9.4 - 12.4 fLOhioHealth Platelets (Bld) [#/Vol]310 10*3/uLOhioHealthRBC (Bld) [#/Vol]3.22 10*6/uLLow OhioHealthWBC (Bld) [#/Vol]1.84 10*3/uLLowOhioHealthCT ABDOMEN PELVIS WITH AND WITHOUT CONTRASTon 75-88-9875Trqpvxopl, Rad In [facility] Speechq - 06/02/2020 2:31 PM EST EXAMINATION: CT [...] using automated exposure control and/or adjustment of mAand/or kV according to patient size and/or use [...] and adnexal structures are satisfactory. Fluid is seensurrounding the uterus in the pelvic cul-de-sac. Bladder is normal. The orally administered contrast outlines the stomach, and relatively dilated proximal small bowel.Note made of more distal loops of small bowel which are likely ileum showing circumferential wall thickening, surrounding inflammation and hypervascularity as well as submucosal enhancement. These are seen in the lower mid abdomen lower right quadrant, and extend to the ileocecal junction. Surgicalclip material in this region likely represents previous partial resection of the terminal ileum andor cecum. It appears that the appendix has [...] of small bowel in the upper abdomen, proximalto the inflammatory changes of Crohn's disease. 2. Stable similar findings of previous surgery at the ileocecal junction, and likely appendectomy, peritoneal free fluid primarily in the lower right colic gutter, and pelvic cul-de-sac. 3. Stable upper abdominal solid organs. [employer] Workstation ID: [id number]. Redemonstration of diffuse inflammatory wall thickening, hypervascularity, submucosal enhancement involving the mid and distal small bowel, consistent with diffuse Crohn's disease, seen extending to the ileocecal junction. There does not appear to be high-grade bowel obstruction. Contrast administered orally does outline some slightly ectatic loops of small bowel in the upper abdomen, proximalto the inflammatory changes of Crohn's disease. 2. Stable similar findings of previous surgery at the ileocecal junction, and likely appendectomy, peritoneal free fluid primarily in the lower right colic gutter, and pelvic cul-de-sac. 3. Stable upper abdominal solid organs. [employer] Workstation ID: [id number]: CT ABDOMEN PELVIS WITH AND WITHOUT CONTRAST HISTORY: ORDERING SYSTEM PROVIDED HISTORY:rule out SBO, has abdominal pain, TECHNOLOGIST PROVIDED HISTORY: Illness/Other Reason for exam: rule out SBO, has abdominal pain Encounter Type: Initial Additional signs and symptoms: rule out SBO, has abdominal pain ORDERING SYSTEM PROVIDED DIAGNOSIS CODES: E87.6 Hypokalemia K50.919 Crohn's disease with complication, unspecified gastrointestinal tract location (HCC) R11.2 Nausea and vomiting, int ractability of vomiting not specified, unspecified vomiting type COMPARISON: Previous CT abdomen and pelvis from May 30, 2020. Abdomen study from May 01, 2020. TECHNIQUE: Dose reduction techniques were achieved by using automated exposure control and/or adjustment of mA and/or kV accordingto patient size and/or use of iterative reconstruction [...] tree, pancreas, spleen, adrenal glands, and kidneys. Inthe pelvis, uterus, and adnexal structures are satisfactory. Fluid is seen surrounding the uterus in the pelvic cul-de-sac. Bladder is normal. The orally administered contrast outlines the stomach, and relatively dilated proximal small bowel. Note made of more distal loops of small bowel which are likely ileum showing circumferential wall thickening, surrounding inflammation and hypervascularity a s well as submucosal enhancement. These are seen in the lower mid abdomen lower right quadrant, andextend to the ileocecal junction. Surgical clip material in this region likely represents previous partial resection of the terminal ileum and or cecum. It appears that the appendix has been surgically removed as well. All portions of the colon evaluated showed normal caliber, normal thickness colon wall without certain inflammatory change. Bony structures appear to be intact. Abdominal wall structures are intact.[facility] ABDOMEN PELVIS WITH AND WITHOUT CONTRASTEXAMINATION: CT ABDOMEN PELVIS WITH AND WITHOUT CONTRAST [...] CLAROS on WedJun 02, 2020 2:28:51 PM [facility]ITALNoSt[facility] Vincent Anderson Regional HospitalComment on above:Order Comment: CTabdomen and pelvis with contrast is ok. Injury/Trauma or Illness?:Illness/Other How long have you had these symptoms (acute/chronic)?:Acute Reason for exam?:rule out SBO, has abominal pain Type of Exam?:Initial Additional signs and symptoms?:rule out SBO, has abominal painUrine Aerobic Cultureon 64-93-3163Sdplsndj identified Aer cx Nom (Unsp spec)No Growth (<1,000 CFU/mL)[facility]XR ABDOMEN 2 VIEWS WITH CHEST 1 VIEWon 71-01-0242Morfkueqm, Rad In [facility] Speechq - 06/01/2020 4:08 PM EST EXAMINATION: [...] air. The lungs are clear. Workstation ID: [id number]: XR ABDOMEN 2 VIEWS WITH CHEST 1 VIEW 06/01/2020 1:22 pm HISTORY: ORDERING SYSTEM PROVIDED HISTORY: abdominal pain with distension, ?? Bowel obstruction TECHNOLOGIST PROVIDED HISTORY: Illn ess/Other Reason for exam: abdominal pain with distension, ?? Bowel obstruction Cancer History: no Surgery, RadiationHistory: no Encounter Type: Initial Additional signs and symptoms: h/o Crohn's' ORDERING SYSTEM PROVIDED DIAGNOSIS CODES: E87.6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 [phone]03-27-2025 15:38-0400Body .6 cmArmand Castaneda MD, PhD Work Phone: [phone]03-27-2025 15:38-0400Body mass index (BMI) [Ratio]19.53 kg/u1IjanxrArmand Castaneda MD, PhD Work Phone: [phone]03-27-2025 15:38-0400Body temperature 98.29 [degF]Armand Castaneda MD, PhD Work Phone: [phone]03-27-2025 15:38-0400Body nkxueo82.88 kgArmand Castaneda MD, PhD Work Phone: [phone]03-27-2025 15:38-0400Diastolic blood ixgionrx18 mm[Hg]Armand Castaneda MD, PhD Work Phone: [phone]03-27-2025 15:38-0400Heart rate95 /min Armand Castaneda MD, PhD Work Phone: [phone]03-27-2025 15:38-5879OxY8% (BldA) [Mass fraction]97 %Armand Castaneda MD, PhD Work Phone: [phone]03-27-2025 15:38-0400Systolic blood xazawjrp552 mm[Hg]Armand Castaneda MD, PhD Work Phone: [phone] [address]-18-2025 14:32-0400Body mass index (BMI) [Ratio]18.5 kg/f3MqkjcnheMariam Dupont PA-C Work Phone: [phone]03-18-2025 14:32-0400Body okfjiw92 kg Schdaquan Dupont PA-C Work Phone: [phone] [address]-18-2025 14:32-0400Diastolic blood mm[Hg]Mariam Dupont PA-C Work Phone: [phone]03-18-2025 14:32-0400Heart rate87 /min Mariam Dupont PA-C Work Phone: [phone] [address]-18-2025 14:32-7636XlQ9% (BldA) [Mass fraction]100 %Mariam Dupont PA-C Work Phone: [phone] [address]-18-2025 14:32-0400Systolic blood lzxbflie190 mm[Hg]Mariam Dupont PA-C Work Phone: [phone]03-18-2025 09:19-0400Body rwoqwr592.6 cmHpn Sheet Rock Installation Helper Work Phone: [phone]03-18-2025 09:19-0400Body mass index (BMI) [Ratio]19.05 kg/m2Hpn [employer] Rock Installation Helper Work Phone: [phone] [address]-18-2025 09:19-0400Body qywzxb55.52 kgHpn Sheet Rock Installation Helper Work Phone: [phone] [address]-17-2025 14:16-0400Body ixurvl720.6 cmObdulia Tejeda PA-C Work Phone: [phone] HospitalKmeikn49-24-3731 14:16-0400Body mass index (BMI) [Ratio]18.4 kg/d3TsjqmnkObdulia Tejeda PA-C Work Phone: [place] Uuimtr25-70-1747 14:16-0400Body .71 kgObdulia Tejeda PA-C Work Phone: [place] Mapyvo81-84-4353 14:38-0500Body temperature 98.4 [degF]Shayna To DO Work Phone: [phone]02-28-2025 14:38-0500Diastolic blood qylaibhd29 mm[Hg]Shayna To DO Work Phone: [phone]02-28-2025 14:38-0500Heart ewxq761 /minAndrew To DO Work Phone: [phone]02-28-2025 14:38-0500 Respiratory rate18 /minAndrew To DO Work Phone: [phone]02-28-2025 14:38-4988SoX9% (BldA) [Mass fraction]100 %Shayna To DO Work Phone: [phone]02-28-2025 14:38-0500Systolic blood mjurfxsq984 mm[Hg]Shayna To DO Work Phone: [facility]01-26-2025 11:27-0500Diastolic blood aioaqsrs50 mm[Hg]Fartun Guallpa MD Work Phone: [facility]01-26-2025 11:27-0500Heart rate66 /Leanne Guallpa MD Work Phone: [facility]01-26-2025 11:27-0500Systolic blood wkebwawn312 mm[Hg]Fartun Guallpa MD Work Phone: [facility]01-26-2025 09:31-0500 Respiratory rate16 /Leanne Guallpa MD Work Phone: [facility]01-26-2025 07:24-0500Body iesyvyucqvd77.5 [degF]Fartun Guallpa MD Work Phone: [facility]01-26-2025 07:24-2462GcN8% (BldA) [Mass fraction]99 %Fartun Guallpa MD Work Phone: [facility]01-26-2025 04:48-0500Body mass index (BMI) [Ratio]19.12 kg/y2PcfgmFartun Guallpa MD Work Phone: [facility]01-26-2025 04:48-0500Body kbsshi83.4 kgFartun Guallpa MD Work Phone: [facility]01-24-2025 12:01-0500Body cuiqwg349.2 cmFartun Guallpa MD Work Phone: [facility]12-02-2024 11:20-0500 Respiratory rate16 /Sakina Maguire MD Work Phone: [facility]12-02-2024 11:10-0500Diastolic blood bontkikm65 mm[Hg]Maru Maguire MD Work Phone: [facility]12-02-2024 11:10-0500Heart rate92 /Sakina Maguire MD Work Phone: [facility]12-02-2024 11:10-2804NlR8% (BldA) [Mass fraction]100 %Maru Maguire MD Work Phone: [facility]12-02-2024 11:10-0500Systolic blood sirnqfac708 mm[Hg]Maru Maguire MD Work Phone: [facility]12-02-2024 10:50-0500Body dhodctwlncf80.8 [degF]Maru Maguire MD Work Phone: [facility]12-02-2024 08:39-0500Body .2 Wendy Maguire MD Work Phone: [facility]12-02-2024 08:39-0500Body mass index (BMI) [Ratio]18.01 kg/y3NmzxsMaru Maguire MD Work Phone: [facility]12-02-2024 08:39-0500Body xpuowd77.16 kgMaru Maguire MD Work Phone: [facility]11-18-2024 13:06-0500Body hebxva992.2 cmStcz [facility]11-18-2024 13:06-0500Body mass index (BMI) [Ratio]18.01 kg/m2Stcz [facility]11-18-2024 13:06-0500Body gangyh82.[address] [place], [place] [address]11-05-2024 15:18-0500Respiratory rate16 /Maria R Elmore MD Work Phone: [facility]11-05-2024 07:45-0500Body btyrbiiseof22.01 [degF]Mason Elmore MD Work Phone: [facility]11-05-2024 07:45-0500Diastolic blood uyrfkren75 mm[Hg]Mason Elmore MD Work Phone: [facility]11-05-2024 07:45-0500Heart rate67 /Maria R Elmore MD Work Phone: [facility]11-05-2024 07:45-0500Systolic blood jlioevdg04 mm[Hg]Maosn Elmore MD Work Phone: [facility]11-05-2024 02:30-5356WfH4% (BldA) [Mass fraction]96 %Mason Elmore MD Work Phone: [facility]10-30-2024 15:01-0400Body .9 cmRvenita Elmore MD Work Phone: [facility]10-28-2024 21:51-0400Body mass index (BMI) [Ratio]19.42 kg/n0CmdlbMason Elmore MD Work Phone: bon [facility]10-28-2024 21:51-0400Body esoblg32.4 kgMason Elmore MD Work Phone: bon [facility]10-19-2024 16:17-0400Body .9 cmTayori Short SEAM PRESS OPERATOR-TOWER SUPERVISOR Work Phone: [facility]-19-2024 16:17-0400Body mass index (BMI) [Ratio]19.08 kg/x7Ntaggl Short SEAM PRESS OPERATOR-TOWER SUPERVISOR Work Phone: [facility]10-19-2024 16:17-0400Body xnxkpvpiigl19.8 [degF]Ami Short SEAM PRESS OPERATOR-TOWER SUPERVISOR Work Phone: [facility]10-19-2024 16:17-0400Body fpzrue33.43 kgTayltonja Short SEAM PRESS OPERATOR-TOWER SUPERVISOR Work Phone: [facility]10-19-2024 16:17-0400Diastolic blood gjzsmroe76 mm[Hg]Ami Short SEAM PRESS OPERATOR-TOWER SUPERVISOR Work Phone: [facility]10-19-2024 16:17-0400Heart rate 103 /minTaylor Short SEAM PRESS OPERATOR-TOWER SUPERVISOR Work Phone: [facility] Vekncz65-95-8287 16:17-0400 Respiratory rate16 /minTayltonja Short SEAM PRESS OPERATOR-TOWER SUPERVISOR Work Phone: [facility]10-19-2024 16:17-7992RzZ3% (BldA) [Mass fraction]98 %Ami Short SEAM PRESS OPERATOR-TOWER SUPERVISOR Work Phone: [facility]10-19-2024 16:17-0400Systolic blood gelajwcj921 mm[Hg]Ami Short SEAM PRESS OPERATOR-TOWER SUPERVISOR Work Phone: [facility] Ygsjkw76-03-3691 06:39-0400Diastolic blood uskvquyx50 mm[Hg]Meet Galindo DO Work Phone: [employer] Home AutomationFERRY COUNTY MEMORIAL HOSPITALFliptu RPRXFZ53-61-0002 06:39-0400Heart rate76 /minStewarlashawn Galindo DO Work Phone: [phone]05-20-2024 06:39-0400 Respiratory rate19 /minStewart Mateo DO Work Phone: [facility]05-20-2024 06:39-0887IuF3% (BldA) [Mass fraction]100 %Meet Galindo DO Work Phone: [phone]05-20-2024 06:39-0400Systolic blood qlcoismq00 mm[Hg]Meet Galindo DO Work Phone: [phone]05-20-2024 05:13-0400Body flavdbzheeo95.5 [degF]Meet Galindo DO Work Phone: [facility]05-20-2024 04:48-0400Body bdychz775.6 cmSteblair Galindo DO Work Phone: [facility]05-20-2024 04:48-0400Body mass index (BMI) [Ratio]19.69 kg/y5YgwkckfMeet Galindo DO Work Phone: [facility]05-20-2024 04:48-0400Body izmnpz28.34 kgStalbertina Galindo DO Work Phone: [phone]02-14-2024 17:02-0500Body pemmtj994.9 cmMcL[facility] Work Phone: [facility]02-14-2024 17:02-0500Body mass index (BMI) [Ratio]19.08 kg/u7WfglwhDeckerville [facility] SEAM PRESS OPERATOR-[facility] Work Phone: [facility]02-14-2024 17:02-0500Body uadmbxqbmgo84.2 [degF]Marixa Barrientos SEAM PRESS OPERATOR-TOWER SUPERVISOR Work Phone: [facility]02-14-2024 17:02-0500Body oyjcwr49.43 kgMarixa Barrientos SEAM PRESS OPERATOR-TOWER SUPERVISOR Work Phone: [facility]02-14-2024 17:02-0500Diastolic blood memhlzjf54 mm[Hg]Marixa Barrientos SEAM PRESS OPERATOR-TOWER SUPERVISOR Work Phone: [facility]02-14-2024 17:02-0500Heart rate 81 /[facility] SEAM PRESS OPERATOR-TOWER SUPERVISOR Work Phone: [facility]02-14-2024 17:02-0500 Respiratory rate16 /[facility]Saint [facility] SEAM PRESS OPERATOR-TOWER SUPERVISOR Work Phone: [facility]02-14-2024 17:02-6174MjR0% (BldA) [Mass fraction]100 %Marixa Barrientos APRN-TOWER SUPERVISOR Work Phone: [facility]02-14-2024 17:02-0500Systolic blood qqxcwydd021 mm[Hg]Marixa Barrientos APRN-TOWER SUPERVISOR Work Phone: [facility]11-22-2023 09:30-0500Body dxtten912.91 cmDalia Apple Other [facility] Other 11-22-2023 09:30-0500Body mass index (BMI) [Ratio] 20.48 kg/p8SvhwtcDalia Apple Other [facility] Other 11-22-2023 09:30-0500Body vepdwdtdwqw84.2 [degF]Dalia Ambika Other [facility] Other 11-22-2023 09:30-0500Body gzwkno11.42 kgGloria Apple Other [facility] Other 11-22-2023 09:30-0500Diastolic blood mubzippe68 mm[Hg] Dalia Ambika Other [facility] Other 11-22-2023 09:30-0500Respiratory rate18 /minGloria Apple Other [facility] Other 11-22-2023 09:30-3137NrP5% (BldA) [Mass fraction]99 % Dalia Ambika Other [facility] Other 11-22-2023 09:30-0500Systolic blood zqkqqnko68 mm[Hg] Dalia Apple Other [facility] Other 11-09-2023 13:00-0500Body wjikxv995.91 cmImad Asaad Other [facility] Other 11-09-2023 13:00-0500Body mass index (BMI) [Ratio] 20.82 kg/m2Imad Asaad Other [facility] Other 11-09-2023 13:00-0500Body yvqtij85.42 kgImad Asaad Other [facility] Other 11-09-2023 13:00-0500Diastolic blood mm[Hg] Imad Asaad Other [facility] Other 11-09-2023 13:00-0500Respiratory rate18 /minImad Asaad Other [facility] Other 11-09-2023 13:00-0500Systolic blood wtchrwux819 mm[Hg] Imad Asaad Other [facility] Other 11-01-2023 15:15-0400Body dlfalp868.91 cmGloria Apple Other [facility] Other 11-01-2023 15:15-0400Body mass index (BMI) [Ratio] 20.33 kg/q0Fjqmzqbrandon Apple Other [facility] Other 11-01-2023 15:15-0400Body fjytttzfwsv51 [degF]Dalia Ambika Other [facility] Other 11-01-2023 15:15-0400Body pxptyg21.02 kgGlbrandon Apple Other [facility] Other 11-01-2023 15:15-0400Diastolic blood bdssgofo84 mm[Hg] Dalializzeth Apple Other [facility] Other 11-01-2023 15:15-0400Respiratory rate18 /minGlbrandon Apple Other [facility] Other 11-01-2023 15:15-0820TiC5% (BldA) [Mass fraction]98 % Dalializzeth Apple Other [facility] Other 11-01-2023 15:15-0400Systolic blood mm[Hg] Dalia Ambika Other [facility] Other 10-06-2023 11:30-0400Body mmtgua617.91 cmGloria Apple Other [facility] Other 10-06-2023 11:30-0400Body mass index (BMI) [Ratio] 19.28 kg/q3Nfhosebrandon Apple Other [facility] Other 10-06-2023 11:30-0400Body qacqqp01.02 kgGlbrandon Apple Other [facility] Other 10-06-2023 11:30-0400Diastolic blood mm[Hg] Daliagurjit Apple Other [facility] Other 10-06-2023 11:30-0400Respiratory rate18 /minGlbrandon Apple Other [facility] Other 10-06-2023 11:30-4962KvC5% (BldA) [Mass fraction]98 % Dalia Apple Other [facility] Other 10-06-2023 11:30-0400Systolic blood xbelqfhq481 mm[Hg] Dalia Ambika Other [facility] Other 08-22-2023 08:15-0400Body faosqm227.91 cmIvonne Martinez Other [facility] Other 08-22-2023 08:15-0400Body mass index (BMI) [Ratio] 18.96 kg/l2Kcoaaqw Schwerer Other [facility] Other 08-22-2023 08:15-0400Body prfugnehldk36.7 [degF] Ivonne [facility] Other [facility] Other 08-22-2023 08:15-0400Body yhfxhd62.11 kgKaitlin [facility] Other [facility] 08-22-2023 08:15-0400Diastolic blood sedixyct56 mm[Hg] Ivonne [facility] 08-22-2023 08:15-0400Respiratory rate18 /minKaitlin Schwerer Other [facility] 08-22-2023 08:15-2425MgO4% (BldA) [Mass fraction]99 % Ivonne Schwerer Other [employer] Other 08-22-2023 08:15-0400Systolic blood ccaxbbqv640 mm[Hg] Ivonne [facility] Other [facility] 08-15-2023 08:35-0400Diastolic blood ugfqbxff16 mm[Hg] PHYSICIAN NO [facility]08-15-2023 08:35-0400Heart rate58 /minPHYSICIAN [facility]08-15-2023 08:35-0400Respiratory rate16 /minPHYSICIAN [facility]08-15-2023 08:35-6498RgZ9% (BldA) [Mass fraction]100 %PHYSICIAN NO [facility]08-15-2023 08:35-0400Systolic blood zvgvotsh065 mm[Hg]PHYSICIAN NO [facility]08-15-2023 07:58-0400 Body xlhywc718.91 cmPHYSICIAN [facility] 02-16-2023 07:58-0400Body mass index (BMI) [Ratio]17.6 kg/i0HIQNESDRC NO [facility]08-15-2023 07:58-0400Body aeican40.34 kg PHYSICIAN [facility]08-15-2023 06:44-0400Body eejkbkjayos42.9 [degF]PHYSICIAN NO [facility] 12-31-2022 15:00-0400Diastolic blood pexwpsyt43 mm[Hg]PHYSICIAN NO [facility]06-29-2023 15:00-0400Heart rate66 /minPHYSICIAN [facility]06-29-2023 15:00-0400Respiratory rate 18 /minPHYSICIAN [facility]06-29-2023 15:00-0400 SaO2% (BldA) [Mass fraction]98 %PHYSICIAN NO [facility]06-29-2023 15:00-0400Systolic blood nluuoubl29 mm[Hg]PHYSICIAN NO [facility]06-29-2023 13:03-0400Body .64 cm PHYSICIAN NO [facility]06-29-2023 13:03-0400Body veqmjxskdmp03.7 [degF]PHYSICIAN NO [facility] 12-31-2022 13:03-0400Body ybvrbg55.44 kgPHYSICIAN [facility]06-21-2023 13:00-0400Body hokgpy068.91 cmImad Jing-Jin Electric Technologiesad Other [facility] Other 06-21-2023 13:00-0400Body mass index (BMI) [Ratio] 17.33 kg/m2Imad Asaad Other [facility] Other 06-21-2023 13:00-0400Body caushv63.44 kgImad Jing-Jin Electric Technologiesad Other [facility] Other 06-21-2023 13:00-0400Diastolic blood mwbttyrh81 mm[Hg] Imad Asaad Other [employer] Other 06-21-2023 13:00-0400Systolic blood pkerxjcs78 mm[Hg] Imad Asaad Other [employer] Other 06-14-2023 09:00-0400Body mhfpam058.91 cmJustin Sarahi Other [facility] Other 06-14-2023 09:00-0400Body mass index (BMI) [Ratio] 17.65 kg/b8Kupvre Sarahi Other [facility] Other 06-14-2023 09:00-0400Body fciatl10.35 kgJustin Sarahi [facility] 06-05-2023 07:30-0400Body manhhl069.91 cmGloria Apple Other [facility] Other 06-05-2023 07:30-0400Body mass index (BMI) [Ratio] 17.65 kg/u9Ifwzav Ambika Other [facility] Other 06-05-2023 07:30-0400Body .35 kgGloria Apple Other [facility] Other 06-05-2023 07:30-0400Diastolic blood mm[Hg] Dalia Ambika Other [facility] Other 06-05-2023 07:30-0400Respiratory rate18 /minGloria Ambika Other [facility] Other 06-05-2023 07:30-4000JhR2% (BldA) [Mass fraction]98 % Dalia Apple Other [facility] Other 06-05-2023 07:30-0400Systolic blood jxjohkdt192 mm[Hg] Dalia Apple Other [facility] Other 06-03-2023 22:52-0400Body .91 cmPHYSICIAN [facility]06-03-2023 22:52-0400Body beipqylondl02.8 [degF]PHYSICIAN [facility]06-03-2023 22:52-0400 Body rrbetn37.8 kgPHYSICIAN [facility]06-03-2023 22:52-0400Diastolic blood djvautoy24 mm[Hg]PHYSICIAN [facility]06-03-2023 22:52-0400Heart rate70 /minPHYSICIAN [facility]06-03-2023 22:52-0400Respiratory rate16 /min PHYSICIAN [facility]06-03-2023 22:52-5173KwJ1% (BldA) [Mass fraction]100 %PHYSICIAN [facility] 12-05-2022 22:52-0400Systolic blood oraojjxd587 mm[Hg]PHYSICIAN [facility]03-16-2021 11:54-0400BMI (Body Mass Index)19.11 kg/l0GbhxvRegency Hospital CompanyVruwtSoswQtovdn09-93-9361 11:54-0400Body gyzvus67.34 [facility]03-16-2021 11:54-0400BP Apicwikwx92 mm[Hg][facility] 09-17-2020 11:54-0400BP Pmfhdlji31 mm[Hg][facility] CompanyNvosnElalHxflxh06-32-9492 11:54-8108Upchji580.2 Iselakeleonela PiwtuFhlhBvizlg47-95-8772 11:54-0400Pulse (Heart Rate)80 /minCandy CndfbRbrjQfiuqq85-61-2518 11:54-0400Pulse Rbzrqfdj98 %Candy DimxuWouuXvtdtx08-13-1904 15:50-0500BMI (Body Mass Index)19.42 kg/y8Bbfugkqx WagrTzkcCnxqeb87-84-1249 15:50-0500Body Crdainhlhzn84.01 [degF]Abdiel Smith UlpoIaqodk97-35-5452 15:50-0500Body huoxfr51.25 kgalexandrea [facility] 09-03-2020 15:50-0500BP Hvohqprbj16 mm[Hg][place] MjqpSxsbXcluyr46-55-1905 15:50-0500BP Ypcecyys282 mm[Hg][place] RjarHcvoBhvetz43-93-0649 15:50-0500 Wtzvbr463.2 cmChelsea Marine Hospitalhaleigh HltrAiwzVcvxfy86-21-2872 15:50-0500Pulse (Heart Rate)109 /minChelsea Marine Hospitalhaleigh CyeoQbnrDaxteu20-10-3508 15:50-0500Pulse Shbzvhqh83 %Abdiel Smith VgfvGpkuur75-50-0324 10:07-0500BMI (Body Mass Index)18.32 kg/w0Lqdwxfxfalexandrea Smith JmniIojgai46-22-0390 10:07-0500Body Tlbnoepfwkn19.5 [degF]Abdiel Smith EyzcTchasg54-82-1461 10:07-0500Body purpqw07.07 kgMercy Health Lorain Hospitallinda [facility] 07-18-2020 10:07-0500BP Gxrcwqktt51 mm[Hg][place] QkiuIqkyQfkdlb84-59-3004 10:07-0500BP Esfphzbf287 mm[Hg][place] TetcEyolAupwkg87-74-1451 10:07-0500 Gljtps420.2 cmMercy Health Lor[facility] Hospitallinda EydfVpqzFxexxe03-36-0448 10:07-0500Pulse (Heart Rate)103 /minAbdiel EshjClrpLbmhpu34-02-9173 10:07-0500Pulse Rvsyjhkv29 %Abdiel Smith FwdcKdnkvz15-05-1275 12:04-0500BMI (Body Mass Index)18.79 kg/s4ArlxfuwnAbdiel Smith IualRlqugr59-21-1764 12:04-0500Body Sawahfbktcj51.01 [degF]Abdiel Smith ObunZpphei03-44-3394 12:04-0500Body .43 kgMer[facility] Hospitallinda [facility] 06-19-2020 12:04-0500BP Krexwskmu74 mm[Hg][facility] HospitalZcjuMtjiXihcrg42-75-4470 12:04-0500BP Khcjbdio190 mm[Hg][place] XjlhKwryFsnwlk14-11-5036 12:04-0500 Wlswjm399.2 cmAshtabula General HospitalZmzoZzjqKjwdko01-51-1999 12:04-0500Pulse (Heart Rate)76 /stevenChelsea Marine Hospitalhaleigh GjhcRdguKmpoqb51-47-6939 12:04-0500Pulse Lsvrqcys56 %[place] Khan LbubOmlauh67-40-2183 10:28-0500BMI (Body Mass Index)18.48 kg/t3Hgiii [facility] HospitalDdmpKwdznr13-19-1121 10:28-0500Body ifqxnk22.52 kgA[facility] Campusleonela [facility] 06-18-2020 10:28-0500BP Rszlypnbi39 mm[Hg][facility] CompanyOplmkMinvAwwgnl42-37-6144 10:28-0500BP Zxqurhqf19 mm[Hg][facility] CompanyAlutsPdlvCxaxfj69-78-9031 10:28-0500Pulse (Heart Rate)79 /Juanjose XfkewBfswYuufdz94-38-8928 13:04-0500Respiratory Rate14 /minIirislizzeth OuuiaVuklFbnqig70-02-8746 08:02-0500Body Zieatriucgn59.9 [degF][facility] HospitalTdamdEydfTfahcj28-33-3363 08:02-0500BP Bqctnwelq48 mm[Hg][facility] 06-04-2020 08:02-0500BP Qaccftou60 mm[Hg][facility] HospitalUxouhGmybGniecr83-35-3318 08:02-0500Pulse (Heart Rate)63 /Maikel AslynQoxnSbexrm06-74-7240 08:02-0500 Pulse Fbstzrsv554 %Geronimo OlfflMetkKiazvd79-36-1374 01:06-0500BMI (Body Mass Index)18.78 kg/m2[facility] HospitalRwarrXinmBaexzh79-27-4196 01:06-0500Body yutodu41.4 kgGenesis HospitalBckgdZuurQpvwbr33-94-8309 00:20-0967Jimwba122.2 cmGen[facility] 09-10-2018 18:42-0500BMI (Body Mass Index)20.8 kg/a0ElibofAdena [facility] 09-10-2018 18:42-0500Body Obeouxrapax64.2 [degF][facility] 18:42-0500BP Bkvrprxxl60 mm[Hg][facility] CenterLcfmczIepvJbyyft47-84-0405 18:42-0500BP Prlikily27 mm[Hg][facility] CenterNxuxlmSyxjRdjvma16-04-8518 18:42-0500Pulse (Heart Rate)101 /[facility]03-09-2019 18:42-0500Pulse Kltmfkfy61 %[facility] HospitalAdzdadCaiuUsnbfz74-44-9570 18:42-0500Respiratory Rate18 /[facility]03-09-2019 18:42-3821Hzumhf49.24 kgAdena [facility] 05-01-2018 14:01-0400Pulse Yxrkcliv94 %[facility]Park[facility] HospitalEcruytChoxMwlejr36-72-1156 14:01-0400Respiratory Rate16 /Jayme CzspnwLaeiYtsbyv48-39-6225 06:16-0400Body Plreulblcll00.7 [degF]Edil VdfomtZmwlJstiui24-44-2642 06:16-0400BP Shxatryos13 mm[Hg]Edil NjgnmfDzfzMemsnt16-96-6584 06:16-0400BP Viyomdkd894 mm[Hg]Edil AedsfiCtaqBchccj88-61-2003 06:16-0400Pulse (Heart Rate)74 /Jayme [facility] HospitalFzrqRakrdz41-21-9942 11:52-0400BMI (Body Mass Index)20.36 kg/h0Wzrls [facility] Hospitalalondra RpvaEctccd37-40-8515 11:52-3452Qciblm688.2 cmEdil GeayqmUemrXscchx61-17-3864 11:52-0839Rxeyki17.97 kgEdil [facility] Encounters Encounter DateEncounter TypeCare ProviderFacilityStart: 05-14-2025 End: 21-11-3483unmemmnpznFAZHAK [facility] HospitalStart: 05-14-2025 End: 93-93-2058Uoeisoyrhv hospital visit by Maribel Apple DO Work Phone: [facility] LABStart: 05-07-2025 End: 60-41-3541yfpkvdhumuCADMNOJU CAMPBELLFacility:[facility] Start: 05-01-2025 End: 50-01-3011hpioxbajkdZWGIOjzxptpy:[facility] HospitalStart: 04-30-2025 End: 88-71-7558tsytrqenkqHgtzpb A Johns DO Work Phone: -[facility] HoodyStart: 04-30-2025 End: 85-70-9198Druvlsp encounter procedureDalia MALONEYBrookline Hospital Shari Work Phone: Start: 04-26-2025 End: 79-28-7226ewsrvmimoiEQBCEL BRAGA NETOFacility:[facility] Start: 04-11-2025 End: 88-43-5855wpwtqirmvbZEOPGY A JOHNSAultman Hospital HospitalStart: 03-30-2025 ambulatoryOBDULIA BONILLAFacility:[facility] HospitalStart: 03-30-2025 End: 93-61-5166gqhfbyrtfnILFTGADX SINGHFacility:[facility] HospitalStart: 03-29-2025 End: 81-66-5188pxpbamgolrWVXNIZORY SCOTTFacility:[facility] HospitalStart: 03-27-2025 End: 25-69-8501knnbmuthfxVDZOLXHT SINGHFacility:[facility] HospitalStart: 03-22-2025 End: 97-05-6887bbxzxpppniNXIHQKPI SINGHFacility:[facility]ertart: 03-22-2025 End: 63-10-9871tanppsebwoHQZLZKR ADAMOWICZcility:[facility] Start: 03-16-2025 End: 89-66-7893umlhyeoeulLVXLWXPYD SCOTTFacility:[facility] Centertart: 03-16-2025 End: 30-66-1262Wrvzlxedn to same day surgery Allen Bridges APRN.CNP Work Phone: [facility] jeromeectal SurgeryComment on above:Crohn's disease of both small and large intestine with abscess (HCC) (Primary Dx); Nausea; Nausea and vomiting, unspecified vomiting type; Gastro-esophageal reflux disease without esophagitisStart: 03-16-2025 End: 37-04-4187Qchrocmzhgoc consultation with Adilia Bridges APRN.CNP Work Phone: [facility]omeectal SurgeryStart: 03-15-2025 End: 07-21-0615krcywcztjoZGPLKG BRAGA NETOFacility:[facility] Start: 03-14-2025 End: 87-54-4327unnbuxuyhqSIAZAHFZ SINGHFacility:[facility]ertart: 03-09-2025 End: 40-68-3072Qqxoddgja encounterArmand Castaneda MD, PhD Work Phone: [facility] HB-3Comment on above:Insurance Authorization (Additional information required [id number] ([facility]) - INJECTION, RISANKIZUMAB-RZAA, INTRAVENOUS, 1 MG//)Start: 03-08-2025 End: 30-87-7803ekjmwnymniUICWPL BRAGA NETOFacility:[facility] Start: 03-08-2025 End: 18-04-9635Qilfuhi encounter Bridget Castaneda MD, PhD Work Phone: GastroenterologyComment on above:Iron deficiency anemia, unspecified iron deficiency anemia type (Primary Dx); Crohn's disease with complication, unspecified gastrointestinal tract location (HCC); Other fatigueStart: 03-08-2025 End: 20-30-6476Qywfvmmtd encounterArmand Castaneda MD, PhD Work Phone: GastroenterologyComment on above:OrdersStart: 03-07-2025 End: 06-05-7385vnyctwyvqtKicnjw [facility] Work Phone: GastroenterologyComment on above:Crohn's disease with complication, unspecified gastrointestinal tract location (HCC) (Primary Dx) Start: 03-07-2025 End: 16-58-8913Sxjrnkwhjtrh consultation with Amelie Kriss [facility] Work Phone: GastroenterologyStart: 03-06-2025 End: 37-89-1859zksgvbjktoPst/[place] Work Phone: Hematology/OncologyStart: 03-06-2025 End: 67-50-0799Tszeixxcd encounterSbeverly Dupont PA-C Work Phone: Vascular MedicineComment on above:Disorders of fluid, electrolyte, and acid-base balance; On total parenteral nutrition (TPN); Leukocytosis, unspecified typeStart: 03-06-2025 End: 44-58-4920Qkfhvvigpnxge drug monitoringMariam Dupont PA-C Work Phone: Vascular MedicineComment on above:Anticoagulation management encounter (Primary Dx)Start: 03-06-2025 End: 73-44-1451Pjpwlypkvvez consultation with Lisbet Dupont PA-C Work Phone: Vascular MedicineStart: 03-06-2025 End: 03-70-2379gvwkbipmvhCKQPAMTL CAMPBELLFacility:[facility] Start: 03-02-2025 End: 51-82-1904gbevgxvpomZcumxa Bradley [facility] PharmacyStart: 03-02-2025 End: 34-01-3122Qwgfwnd encounter procedureNidia Maya [facility] Specialty PharmacyComment on above:SPP Inflammatory Conditions - Treatment Referral (Rodrick); Insurance Authorization (Prior Auth Submission Pending)Crohn's disease of small and large intestines with complication (HCC) (Primary Dx); Disorders of fluid, electrolyte, and acid-base balance; On total parenteral nutrition (TPN); Leukocytosis, unspecified typeEncounter for other specified surgical aftercare; Postoperative pain; Diarrhea, unspecified type; Constipation, unspecified constipation typeStart: 02-26-2025 End: 23-62-7560Uzobrrzvl encounterElsy Rousseau DO Work Phone: Colorectal SurgeryComment on above:AppointmentStart: 02-22-2025 End: 21-00-6368Aahwwj Coco Castaneda MD, PhD Work Phone: GastroenterologyStart: 02-15-2025 End: 18-46-2740Chxbphttr encounterHpn Sheet Rock Installation Helper Work Phone: GastroenterologyComment on above:Hospital Admission (02/15/2025 - )Start: 02-15-2025 End: 00-45-5201Jijmmptzqz and management of inpatientELSY ROUSSEAU [facility]art: 02-14-2025 End: 40-04-2251Hhmbgzueo to same day surgery centerNurse Pt Ed Cors Work Phone: colorectal SurgeryComment on above:Pre-Op Exam; Patient EducationCrohn's disease of small and large intestines with complication (HCC); Disorders of fluid, electrolyte, and acid-base balance; On total parenteral nutrition (TPN)Start: 02-14-2025 End: 55-39-5005Wbidczlsj to [facility] tomballLanie Guillen MD Work Phone: [facility] MED MAINStart: 02-14-2025 End: 43-26-6920rpsxlzmmefCwpm K Kaw MD Work Phone: [facility] HOSP MED MAINComment on above:Crohn's disease of small intestine with intestinal obstruction (HCC) [K50.012] (Primary Dx); 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]; Hypotension due to hypovolemia [E86.1]Start: 02-14-2025 End: 75-95-0237Hbhfnvfmlj hospital visit by physicianGi Radio Main Qb1 (I-Stat) RadiologyComment on above:Crohn's disease of small and large intestines with complication (HCC) [K50.819]Start: 02-13-2025 End: 24-99-2375Noslbocae encounterKaylaricha Stone [facility] Work Phone: [facility] -3Start: 02-06-2025 End: 28-68-6724dsosgqehneUNVDLbffsgau:[facility] Centertart: 01-31-2025 ambulatoryMANDEEPK SINGHFacility:[facility] Centertart: 01-30-2025 End: 08-28-8583wpyktangrxSgm Sheet [employer] Installation Helper Work Phone: GastroenterologyComment on above:Crohn's disease of small and large intestines with complication (HCC) (Primary Dx); Disorders of fluid, electrolyte, and acid-base balance; On total parenteral nutrition (TPN); Leukocytosis, unspecified type; Crohn's disease of small intestine with other complication (HCC)Start: 01-24-2025 End: 98-59-2904Xiururii CenterLab/[place] Work Phone: Hematology/OncologyComment on above:Disorders of fluid, electrolyte, and acid-base balance; On total parenteral nutrition (TPN); Leukocytosis, unspecified typeOn total parenteral nutrition (TPN) (Primary Dx); Vitamin deficiency; Crohn's disease of small intestine with other complication (HCC)Start: 01-23-2025 End: 73-47-8145Rgdfagdab encounterArmand Castaneda MD, PhD Work Phone: GastroenterologyStart: 01-17-2025 End: 42-60-9097Rcsigfct CenterLab/[place] Work Phone: Hematology/OncologyComment on above:Disorders of fluid, electrolyte, and acid-base balance (Primary Dx); On total parenteral nutrition (TPN); Leukocytosis, unspecified typeStart: 01-16-2025 End: 38-49-6102Fogkohvp CenterLab/[place] Work Phone: Hematology/OncologyComment on above:Disorders of fluid, electrolyte, and acid-base balance; On total parenteral nutrition (TPN); Leukocytosis, unspecified typeStart: 01-16-2025 End: 55-55-1919tbjgycttciLoaymd [facility] Work Phone: GastroenterologyComment on above:Crohn's disease with complication, unspecified gastrointestinal tract location (HCC) (Primary Dx) Start: 01-16-2025 End: 95-87-2080Jvdjqdsjbhsh consultation with Amelie [facility] Work Phone: GastroenterologyStart: 01-10-2025 End: 17-18-5469Gwduboflx encounterHpn Sheet Rock Installation Helper Work Phone: GastroenterologyComment on above:OrdersStart: 01-09-2025 End: 69-30-6437Thalkqev CenterNess [facility] Port/[place] [address] Work Phone: Hematology/OncologyComment on above:Disorders of fluid, electrolyte, and acid-base balance; On total parenteral nutrition (TPN); Leukocytosis, unspecified typeNutrition AssessmentOn total parenteral nutrition (TPN) (Primary Dx); Malnutrition of mild degree (HCC); Therapeutic drug monitoring; Crohn's disease with other complication, unspecified gastrointestinal tract location (HCC); Presence of ileostomy (HCC); Central venous catheter in place, permanentStart: 01-08-2025 End: 08-40-5421Nhbrx [facility] Diet[facility] Work Phone: GastroenterologyStart: 01-02-2025 End: 81-96-5404Cdcyohjv CenterClinton [facility] [address] [place] Work Phone: Hematology/OncologyComment on above:Crohn's disease of small and large intestines with complication (HCC) (Primary Dx); Disorders of fluid, electrolyte, and acid-base balance; On total parenteral nutrition (TPN); Leukocytosis, unspecified typeStart: 01-01-2025 End: 06-92-5399Lmgwvqxgi encounterHpn Sheet Rock Installation Helper Work Phone: GastroenterologyComment on above:ResultsStart: 12-29-2024 End: 00-63-5969Dudyxgqqz encounterJaimie Carrasquillo RD Work Phone: GastroenterologyComment on above:Patient Update Disorders of fluid, electrolyte, and acid-base balance; On total parenteral nutrition (TPN); Leukocytosis, unspecified type; Selenium deficiency; Toxic effect of manganese or manganese compound, accidental or unintentional, subsequent encounter; Elevated C-reactive proteinStart: 12-29-2024 End: 56-26-8095Ifmoqoq encounter procedureSbeverly Dupont PA-C Work Phone: Vascular MedicineComment on above:Acute deep vein thrombosis (DVT) of axillary vein of left upper extremity (HCC) (Primary Dx); Anticoagulation management encounter; Acute deep vein thrombosis (DVT) of brachial vein of right upper extremity (HCC) Start: 12-29-2024 End: 60-09-3992xzlghevalyEwt Port/[place] [address] [place] [address] Work Phone: Hematology/OncologyStart: 12-27-2024 End: 68-21-9213Hswheg Coco Castaneda MD, PhD Work Phone: GastroenterologyComment on above:Disorders of fluid, electrolyte, and acid-base balance (Primary Dx); Elevated C-reactive protein; Leukocytosis, unspecified type; On total parenteral nutrition (TPN); Toxic effect of manganese or manganese compound, accidental or unintentional, subsequent encounter; Selenium deficiencyStart: 12-25-2024 End: 30-09-0471Upokeqh evaluation of patient and reportStoma Therapy Work Phone: Colorectal SurgeryComment on above:Attention to ileostomy (HCC) (Primary Dx)Start: 12-25-2024 End: 01-42-5718Wvdtxjg encounter Christy Rousseau DO Work Phone: Colorectal SurgeryComment on above: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, unspecified laterality; Encounter for surgical aftercare following surgery of digestive system; 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Start: 12-25-2024 End: 42-47-2272xqxwdcwnbiFSEDVBC MCCAUSLANDFacility:[facility] Start: 12-25-2024 End: 19-75-7311Uuykyb consultation new/estab patient 40 Leanne Carpio MD Work Phone: DermatologyComment on above:Multiple benign nevi (Primary Dx); Skin exam, screening for cancer; Seborrheic keratoses; Lentigines; Chin angioma; Subcutaneous nodule; Rash and nonspecific skin eruptionStart: 12-07-2024 End: 47-32-4104Odffvwhxb encounterArmand Castaneda MD, PhD Work Phone: GastroenterologyComment on above:Patient Update (Rodrick)Start: 11-13-2024 End: 29-41-9728pganiffsnnHfdujv [facility] Work Phone: GastroenterologyComment on above:Skgayla approval Start: 11-13-2024 End: 91-28-4907Z-mail encounter from Nahum Kriss [facility] Work Phone: GastroenterologyStart: 11-10-2024 End: 36-77-6935Wrejlwfgf to same day surgery scituateAnna Nestio DO Work Phone: Colorectal SurgeryStart: 11-10-2024 End: 79-04-1067mpxvtuinwgAlza Soham DO Work Phone: Colorectal SurgeryStart: 11-10-2024 End: 58-73-7440Wtaisq-up encounterArmand Castaneda MD, PhD Work Phone: GastroenterologyStart: 11-10-2024 End: 71-18-2868Ocajtwbfn encounterAnna Soham DO Work Phone: Colorectal SurgeryComment on above:Returning Patient's Call; Materials Planning Manager - OtherStart: 11-08-2024 End: 35-70-1713Vopdtr-up encounterSlatrell Monterroso [facility] Work Phone: GastroenterologyStart: 11-08-2024 End: 64-40-7314Jvyqysuso encounterElsy Rousseau DO Work Phone: Colorectal SurgeryComment on above:Schedule Surgery Start: 11-07-2024 End: 15-91-9624Jlqrqlzvx encounterArmand Castaneda MD, PhD Work Phone: GastroenterologyComment on above:Medication Follow-up (Skyrizi)Start: 11-07-2024 End: 98-24-7026txhmfekvleLLAYSLRC KAUR SINGHFacility:[facility] Start: 11-07-2024 End: 96-32-9350Emmfvxvefx hospital visit by physicianLia 2 Main Qb (I-Stat) RadiologyStart: 11-07-2024 End: 25-35-9854Dqnfxfciuv hospital visit by Gagandeep Correa [address] 1 RadiologyComment on above:Crohn's disease of small and large intestines with complication (HCC) [K50.819]Start: 11-07-2024 End: 85-75-7508fipdjwrkrqMgv Port/[place] [address] Work Phone: Hematology/OncologyComment on above:Crohn's disease of small and large intestines with complication (HCC)Start: 11-07-2024 End: 93-73-4173Dwtwvjs encounter Anand Patel MD Work Phone: UrologyComment on above:Feeling of incomplete bladder emptying (Primary Dx); Mixed stress and urge urinary incontinenceStart: 11-07-2024 End: 90-32-8581Nlveska evaluation of patient and reportStoma Therapy Work Phone: Colorectal SurgeryComment on above:Attention to ileostomy (HCC) (Primary Dx); Fitting and adjustment of gastrointestinal appliance and deviceStart: 11-07-2024 End: 62-89-3170xfjuheyrroABIGHjdkljrb:[facility] Centertart: 11-03-2024 End: 12-29-8750Cibjcurmwltb consultation with patientSlatrell Kriss [facility] Work Phone: GastroenterologyStart: 11-03-2024 End: 59-59-5927ybajmysltdSohfkd [facility] Work Phone: GastroenterologyComment on above:Crohn's disease of small and large intestines with complication (HCC) (Primary Dx)Start: 10-28-2024 End: 13-66-1724Dfqaukyls department patient visitJAMES W SAUTOFacility:[facility] HospitalStart: 10-25-2024 End: 41-24-3106Ixpacempv encounterObdulia Tejeda PA-C Work Phone: colorectal SurgeryComment on above:Patient Update Start: 10-24-2024 End: 35-33-1441Ryahmsikl to same day surgery centerObdulia Tejeda PA-C Work Phone: colorectal SurgeryComment on above:Stoma outputStart: 10-24-2024 End: 76-76-7278L-mail encounter from caregiverObdulia Tejeda PA-C Work Phone: colorectal SurgeryStart: 10-24-2024 End: 16-20-1754Nbbxlcrzu encounterAlldave Carrasquillo RD Work Phone: GastroenterologyStart: 10-20-2024 End: 92-87-9163InnhazSsrghdrm E Campbell PA-C Work Phone: Vascular MedicineStart: 09-28-2024 End: 26-57-1692elvxqqqczcXUUDQEUQ KAUR SINGHFacility:[facility] Start: 09-28-2024 End: 78-99-5497Khfxvuy encounter Bridget Castaneda MD, PhD Work Phone: GastroenterologyComment on above:Crohn's disease of small and large intestines with complication (HCC) (Primary Dx)Start: 09-28-2024 End: 39-96-9412gvcayiuznrGZAIRL BRAGA NETOFacility:[facility] Start: 09-27-2024 End: 02-66-4591bxpxvppxlnXFHAUK A KENNEDYFacility:[facility] Hospitaltart: 09-19-2024 End: 78-05-4338qahgmyzbfoDUQDKBCB KIAHFacility:[facility] Start: 09-19-2024 End: 72-28-1320Sgygga-up encounterObdulia Tejeda PA-C Work Phone: colorectal SurgeryStart: 09-19-2024 End: 57-43-8634Xvwxzghnk encounterStoma Therapy Work Phone: 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 [facility]'s jeromeectal SurgeryComment on above:Attention to ileostomy (HCC) (Primary Dx); Fitting and adjustment of gastrointestinal appliance and deviceStart: 09-18-2024 End: 55-53-6560nkakhugotsYOOTHGF MCCAUSLANDFacility:[facility] Start: 09-18-2024 End: 99-43-8751Mwvdx abstractingHpn [employer] Installation Helper Work Phone: GastroenterologyStart: 09-18-2024 End: 24-19-6137Zcofubi encounter Agata Tejeda PA-C Work Phone: colorectal SurgeryComment on above:Post-operative state (Primary Dx); High output ileostomy (HCC); Other urinary incontinence; Crohn's disease of both small and large intestine with abscess (HCC)Start: 09-14-2024 End: 49-50-0046cpattapgjxPAXPNRJC DZIAKFacility:[facility] HospitalStart: 09-11-2024 End: 22-23-3373Lrcnlmpgo encounterCatlinnette Diaz LISWHematologyStart: 09-08-2024 End: 06-82-9195Peocetmha encounterBeverlyeva Oliveiraia DO Work Phone: HematologyComment on above:Medication QuestionStart: 09-01-2024 End: 65-83-8593Vjknpfisl department patient visitAndrew D To DO Work Phone: [facility] DepartmentStart: 08-31-2024 End: 76-59-8869Kwtzxdycg encounterHpn Sheet Rock Installation Helper Work Phone: GastroenterologyComment on above:clogged lineStart: 08-29-2024 End: 30-13-0419Ukgznx Mark Dupont PA-C Work Phone: Vascular MedicineComment on above:Acute deep vein thrombosis (DVT) of axillary vein of right upper extremity (HCC) (Primary Dx); Acute deep vein thrombosis (DVT) of brachial vein of right upper extremity (HCC) Feeding difficulties (Primary Dx); 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Start: 08-28-2024 End: 39-01-5792Ntbtjpxmvk and management of inpatientKRISTCHILDR[facility] Facility:[facility] HospitalStart: 08-21-2024 End: 54-77-7151Jmcgswmfok and management of inpatientANITA BRANDAN Facility:[facility] HospitalStart: 08-16-2024 End: 24-69-9246Icuohczxs encounterArmand Castaneda MD, PhD Work Phone: GastroenterologyComment on above:Patient UpdateStart: 08-14-2024 End: 60-71-4879yakoheumwwXeylx A [facility] Work Phone: Start: 08-14-2024 End: 69-61-0681Pkbbtvop Osei Maguire MD Work Phone: [facility]-Lab Main [place] Work Phone: Start: 08-08-2024 End: 24-69-1541Zzhvge OnlyRamanvickie Short DO Work Phone: GastroenterologyComment on above:Feeding difficulties (Primary Dx)Start: 08-04-2024 End: 96-80-8700Osskqluph encounterArmand Castaneda MD, PhD Work Phone: GastroenterologyComment on above:OrdersStart: 04-79-6196Wbiskajky department patient visitMANDEEST. ANTHONY'S HOSPITALFacility:[facility] Centertart: 07-19-2024 End: 24-70-2903Docukixdya and management of inpatientDajailene Guallpa MD Work Phone: stvz 2C Ortho/Med SurgComment on above:Nausea and vomiting, unspecified vomiting type (Primary Dx); Abdominal pain, epigastric; Partial intestinal obstruction, unspecified cause (HCC); Bandemia; Abscess of intestine due to Crohn's disease (HCC)Start: 06-05-2024 End: 76-44-7226ahlpykjbphEJVOWMemorial Health Systemtart: 06-05-2024 End: 37-49-7570Jhbpggogke hospital visit by Errol Maguire MD Work Phone: STCZ ENDOComment on above:Crohn's disease of small intestine with complication (HCC) (Primary Dx); Crohn's disease of small and large intestines with complication (HCC)Start: 05-22-2024 End: 06-01-6704azgfdvwkrzFDGGPMount St. Mary Hospitaltart: 05-22-2024 End: 84-54-7944Hirwckhmhz hospital visit by physicianSheath [facility] 5STCZ Pre-Admit TestingStart: 05-01-2024 End: 67-45-5026Kaunppjola and management of inpatientRanrobert Mensah King ALBIN Work Phone: stvz MED SURGComment on above:Generalized abdominal pain (Primary Dx); Crohn's disease of colon with abscess (HCC); Intra-abdominal abscess (HCC); Crohn's disease of colon with rectal bleeding (HCC); Crohn's colitis, other complication (HCC)Start: 04-22-2024 End: 94-82-3223Keaitq outpatient visit 15 minutesTaylpa Rohini [place] [facility] OPERATORMURPHY [facility] Work Phone: [facility] CareComment on above:Acute cough (Primary Dx); Upper respiratory tract infection, unspecified typeStart: 04-22-2024 End: 92-95-1395zuoxhjpzxvLEYDITKaiser Foundation Hospital Ambulatory PPGStart: 01-25-2024 End: 44-83-2963Vdfhifdhku and management of inpatientKettering Health Greene Memorialtart: 01-19-2024 End: 25-80-2439Fsqyryq encounter procedureDO Dalia Apple Work Phone: [facility]-Lab Main [place] Work Phone: Start: 01-19-2024 End: 92-56-2441jwohdeuqkcYV Dalia Apple Work Phone: [facility] Work Phone: Start: 12-27-2023 End: 00-95-2727Rfayibdyr department patient visitNO PCP NO PCPMain Campus Medical Centertart: 48-82-7859Cqb-patient / Non-visitDO Dalia Apple Work Phone: [facility] Shari Work Phone: Start: 11-22-2023 End: 27-28-4707Imodofabw department patient visitSteblair Galindo DO Work Phone: [facility] EDComment on above:Crohn's disease with complication, unspecified gastrointestinal tract location (HCC) (Primary Dx)Start: 08-18-2023 End: 13-42-1067ufrxoytsgeFR PCP NO PCPProMedica Hospital Ambulatory PPGStart: 08-18-2023 End: 27-15-9775Uvnrwb outpatient visit 15 minutesMarixa Barrientos SEAM PRESS OPERATOR-TOWER SUPERVISOR Work Phone: [facility] OregonComment on above:Infected cyst of skin (Primary Dx)Start: 44-42-4558Hbevih outpatient visit 25 minutes Dalia AppleRosa Inter-Community Medical CenteryStart: 05-26-2023 End: 82-68-2410qdwhknlmndLR Dalia Apple Work Phone: noBe[facility] Other Start: 05-26-2023 End: 47-75-7412Trvkawo encounter procedureDO Dalia Apple Work Phone: [facility]-Lab [facility] Shorelinetart: 05-25-2023 End: 52-18-2318boeitdwgedAbnpkb Apple Other [facility] Other Start: 33-03-6533Rgjlckgka encounterGlbrandon AppleMendocino Coast District HospitalyStart: 05-13-2023 End: 86-15-9000gppdgnhmysIsbo Asaad Other [facility] Heart Other Start: 63-00-3180Qghcso outpatient visit 25 minutes Imad AsaadCHLOÉ GastroenterologyStart: 05-05-2023 End: 90-15-9773Bgosykac ReferredDO Dalia Apple Work Phone: [facility] [place] Work Phone: Start: 05-05-2023 End: 39-26-5457frjckmmqjvKX Gloria A Johns Work Phone: [facility] Work Phone: Start: 38-28-9570Omdxbs outpatient visit 25 minutes Dalia [facility]ikaYAVAP[facility] [place] centeryStart: 04-27-2023 End: 11-31-3683byflzpecnqAmjcat Apple Other [facility] Other Start: 83-89-0720Vumosbhby encounterGloria JohnsYAVAPAI REGIONAL [facility] [place] centeryStart: 04-22-2023 End: 60-49-7523mjkgciyckfMhlw Asaad Other [facility] Other Start: 27-30-1014Asijcskko encounterImad AsaadYAVAPAI [facility] GastroenterologyStart: 04-21-2023 End: 82-66-8904ztoldvyuedTzfedi Apple Other [facility] [employer] Other Start: 21-57-4448Dpzfjknck encounterGloria JohnsYAVAPAI REGION[facility] Family [facility] [place] centeryStart: 04-09-2023 End: 63-04-5448mwphrjydeoHmtlfu Apple Other [facility] [employer] Other Start: 33-16-7628Esyksb outpatient visit 25 minutes Dalia AmbikaMendocino Coast District HospitalyStart: 03-31-2023 End: 74-37-4658prwpqwiemxDG Dalia A Apple Work Phone: [facility] Work Phone: Start: 03-31-2023 End: 27-95-6375Rdkouwd encounter procedureDO Dalia Apple Work Phone: [facility]-CT Scan [place] Work Phone: Start: 03-09-2023 End: 67-31-7671sedxzlzgayDfie Asaad Other [facility] Other Start: 29-96-7057Dbpjxgsad encounterImad AsaadFPG GastroenterologyStart: 02-24-2023(Post-Op) Post-OpJustin SarahiFPG [facility] OrthopedicsStart: 02-24-2023 End: 60-59-0062ednrhlcmduQwxega Sarahi Other [facility] Other Start: 02-23-2023 End: 00-89-1162kfjujuttqxYmcucvc Schwerer Other [facility] Other Start: 86-94-7056Vdbtff outpatient visit 15 minutes Ivonne Mireles [facility] Cent[facility]Start: 02-16-2023 End: 94-40-0496Ribftjomp to same day surgery centerPHYSICIAN [facility] [place]: 02-16-2023 End: 26-25-8297uwxenvayymAMLOVBSRE [facility] Work Phone: Start: 02-01-2023 End: 98-50-5837pjcskpjxmeIigw Asaad Other [facility] Other Start: 20-64-8131Sfudvxlgl encounterImad AsaadFPG GastroenterologyStart: 01-19-2023 End: 05-69-0330Mastdla encounter procedurePHYSICIAN [facility] [place] Work Phone: Start: 01-18-2023 End: 30-82-4746wrfrdzubefZovwmk Sarahi Other [facility] Other Start: 88-55-6382Offssojfk encounterJustin SarahiFPG [facility] OrthopedicsStart: 01-06-2023 End: 84-04-8301syzkfwnjfwIxqs Asaad Other [facility] Other Start: 13-69-9463Joohudleu encounterImad AsaadFPG Referral CoordinatorStart: 01-04-2023 End: 68-84-2830gntjzxuzvqFakqqs Ambika Other [facility] [employer] Other Start: 97-97-7134Tmfctckke encounterGloria JohnsYAVAPAI REG[facility] Family Medicine [place]Start: 12-31-2022 End: 86-46-6945Ukljwjpoz to same day surgery centerPHYSICIAN NO [facility] Work Phone: Start: 12-31-2022 End: 49-35-5147asekgirbmtKQRBINUZG NO [facility] Work Phone: Start: 12-30-2022 End: 83-46-9940ggweobtkljTLRLNHAHV NO [facility] Work Phone: Start: 12-30-2022 End: 50-43-9632Vvtebie encounter procedurePHYSICIAN NO [facility] [place] Work Phone: Start: 12-23-2022 End: 16-22-5357kbmsdedaumHrwx Asaad Other [facility] [employer] Other Start: 42-06-6391Ypuejl outpatient new 45 minutesImad AsaadFPG GastroenterologyStart: 42-74-9793Vpaxinmfu encounterImad AsaadFPG GastroenterologyStart: 12-22-2022 End: 43-81-6265lvudscpmrqBluwyo Sarahi Other [place] Other Start: 86-18-6562Hjiajumrz encounterJustin SarahiFPG [facility] OrthopedicsStart: 64-55-8043Xzjwcb outpatient new 45 minutesJustin KelleyFPG [facility] OrthopedicsStart: 12-16-2022 End: 65-76-8885hdtxmussggXOELKLGWO NO [facility] [employer] Other Start: 12-16-2022 End: 94-78-4863Lufoktp encounter procedurePHYSICIAN NO [facility]-XRay Shari OrthoStart: 12-14-2022 End: 78-07-5979Phamgtq encounter procedurePHYSICIAN NO [facility]-Ultrasound [place] Work Phone: Start: 12-07-2022 End: 61-80-2278qhnmoftjvnWiyxpq [facility] Other [place] [employer] Other Start: 64-74-8471Zrnvvp outpatient new 45 minutes Dalia AppleYAVAPAI REGIONAL [facility] Family Medicine [place]Start: 12-05-2022 End: 61-15-5009Kmuxytiab department patient visitPHYSICIAN NO [facility]-Emergency Room Work Phone: Start: 21-56-5614Cqtpcylhn for preprocedural laboratory examinationDR JELLY TIMMISTralph Hector HospitalStart: 10-06-2022 End: 48-56-0482ljdmgyauxwVM JELLY TIMMISFacility:P1Dpkss: 10-02-2022 End: 57-19-0862roiyktfqocOI JELLY TIMMISFacility:H2Sttav: 10-02-2022 End: 61-47-8908Lbidebqbi for preprocedural laboratory examinationDR JELLY TIMMISFacility:A7Qalsm: 09-29-2022 End: 43-70-5232oysvlohyiyFH NONE LISTED REQUESTFacility:D6Yhrdr: 06-11-2022 End: 94-65-9029lgukishehbRzkmd SALAMFacility:[facility] DHStart: 06-11-2022 End: 28-11-5882Lxumrit encounter procedureMaher SALAM 524-2010Oowcnn-[facility]scpMer[facility] Health [facility] Start: 72-84-7953cctanthhjzLipnk SALAMFacility:Mahendra Davis DHStart: 01-10-2022 End: 14-76-7548xtsxeiwscnEIOMMJA Haleigh JYOTIKOFacility:A5Stjac: 01-22-2021 End: 35-02-6172BqeapyYrphct J Gomez [facility] Gastroenterology Start: 01-16-2021 End: 31-95-5763zttpiowcyhFADCZMultiCare Healthtart: 11-19-2020 End: 95-69-2191yeqppzplmeIdcmg [facility] Physicians Primary Care Start: 27-53-6552Eegnwmfmrhjo of care [facility] Physicians Primary CareComment on above:Care Coordination (BHP)Start: 10-30-2020 ambulatorySAINT LUKE'S HOSPITALHaleigh [facility] PhysiciansStart: 10-30-2020 End: 08-99-8438Awxgbxzljzhza procedureMuhorsham cliniclinda Smith MD Work Phone: [place] [address] Physicians Primary CareStart: 10-29-2020 End: 40-49-1330LvzebcRiky Buchanan [facility] Physicians GastroenterologyComment on above:Crohn's disease of small intestine without complication (HCC) (Primary Dx)Start: 10-23-2020 End: 78-02-1078pxjjdlnofvWWJRHMultiCare Healthtart: 94-08-3314Qdgaylpjhwsm of care [facility] Physicians Primary CareComment on above:Care Coordination (BHP)Start: 10-08-2020 End: 40-27-0773Fcatyng encounter procedureEmmason GuzmanCaioHealthStart: 26-36-5362zktvbeslsiGRPQVARB MENJIVAR ALI [facility] Physicians Start: 88-12-4240Dgukwbynrvxt of care [facility] Physicians Primary CareComment on above:Care Coordination (BHP)Start: 09-26-2020 End: 56-48-5922Ygrlrwoyddsch procedurealexandrea Smith Work Phone: [facility] Physicians Primary CareStart: 09-26-2020 End: 71-06-2241Cqhqflu encounter procedureEmmason GuzmanMichiganHealthStart: 09-22-2020 End: 25-27-9848Wkuyci OnlyAbdiel Smith Work Phone: [facility] Physicians Primary CareComment on above: Depression, unspecified depression typeStart: 09-20-2020 End: 61-07-3536Qsphokyvoqzwg procedureTorupert Linton Work Phone: [facility]Start: 09-17-2020 End: 75-88-9739ciijrwithaHZPJHAscension [facility] Physicians Start: 09-17-2020 End: 02-75-5529Dmctch outpatient visit [facility] minutes[facility] Work Phone: [facility] Physicians GastroenterologyComment on above:Crohn's disease of small intestine without complication (HCC) (Primary Dx) Start: 27-24-3888whjvhyzrmqZFGYPIAZ MENJIVARTexoma Medical Center PhysiciansStart: 09-03-2020 End: 47-34-4636tedxduhanaQYIATXSU [facility] PhysiciansStart: 09-03-2020 End: 20-11-4550Nrqtnr outpatient visit 15 minutesPinkylinda Smith Work Phone: [facility] Physicians Primary CareComment on above: Chronic pain of left knee (Primary Dx)Start: 37-96-0712Lppziwvuvlma of care plan [facility] Physicians Primary CareComment on above:Care Coordination (BHP)Start: 09-03-2020 End: 37-30-7503Hzoirap encounter procedureEmmason GuzmanMichiganHealthStart: 09-02-2020 End: 14-25-3458XigdkrVcxcdbpu J MussSmith [facility] Hospital Physicians Gastroenterology Start: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 on above:2 month follow upStart: 59-95-2376CRQBR-19 Vaccine ( season)COVID-19 Vaccine ( season)Bon [facility] HospitalStart: 17-58-6053Fgrenleqk vaccinationBoca Raton ClinicStart: 03-02-2025 End: 37-85-4333Rknqrfp encounter ohajglrow35/29/2025 4:00 PM EDT Office Visit Colorectal Surgery [address] [place] [phone] Tre Bridges APRN.TOWER SUPERVISOR [address] [facility] [place] [address] postopColorectal SurgeryComment on above:postopStart: 03-02-2025 End: 11-95-9437oqfwnzltmjVtieijfftx/OncologyComment on above:SKYRIZI / Reece dressing and lab drawStart: 02-26-2025 End: 26-58-9899kcterbxcul18/25/2025 3:15 PM EDT [facility] Center Hematology/Oncology [address] [place] [address] Port Draw And Weekly Dressing Change HickmanHematology/OncologyComment on above:Port Draw And Weekly Dressing Change HickmanStart: 02-15-2025 End: 88-16-8209Deuiwsoxs to same day surgery sbwxjl6102/15/2025 11:29 AM EDT - 02/15/2025 3:59 PM EDT Surgery Admitting [address] [place] [address] SohamElsy stephen, [address] [place] [address] EXPLORATORY LAPAROTOMYAdmittingComment on above:EXPLORATORY LAPAROTOMYStart: 02-15-2025 End: 53-29-7120Kprcicr enterostomy lg/small intestineCLOSURE ILEOSTOMY Crohn's disease of small and large intestines with complication (HCC) 02/15/2025 11:29 AM EDP[facility] PAVILIONStart: 02-15-2025 End: 14-43-3482Rgfeiuceklq laparotomy celiotomy w/wo biopsy spxEXPLORATORY LAPAROTOMY Crohn's disease of small and large intestines with complication (HCC) 02/15/2025 11:29 AM EDP[facility] PAVILIONStart: 02-15-2025 End: 06-02-6010Cvqdjgunt to same day surgery ifiyiy3902/15/2025 9:15 AM EDT - 02/15/2025 1:45 PM EDT Surgery Admitting [address] [place] [address] Soham ElsyDO lizzeth [address] [place] [address] EXPLORATORY LAPAROTOMYAdmittingComment on above:EXPLORATORY LAPAROTOMYStart: 02-15-2025 End: 67-85-0721Vrhuwhrbhj /14/2025 9:15 AM EDT Anesthesia Event Admitting [address] [place] [address] Obed Landrum MD [address] [place] [phone] AdmittingStart: 02-15-2025 End: 09-58-3559Kacculm enterostomy lg/small intestine MAIN PAVILIONStart: 02-15-2025 End: 06-27-1652Lmliqenziuf laparotomy celiotomy w/wo biopsy x [facility] Start: 02-15-2025 End: 06-26-6858Daglqkxfw to same day surgery hoyicn1302/15/2025 7:30 AM EDT - 02/15/2025 11:45 AM EDT Surgery Admitting [address] [place] [address] Elsy Rousseau DO [address] [place] [address] EXPLORATORY LAPAROTOMYAdmittingComment on above:EXPLORATORY LAPAROTOMYStart: 02-15-2025 End: 70-21-0834Nddxtmj enterostomy lg/small intestineCLOSURE ILEOSTOMY Crohn's disease of small and large intestines with complication (HCC) 02/15/2025 7:30 AM EDP[facility] PAVILIONStart: 02-15-2025 End: 84-40-5008Olcqrirgutk laparotomy celiotomy w/wo biopsy spxEXPLORATORY LAPAROTOMY Crohn's disease of small and large intestines with complication (HCC) 02/15/2025 7:30 AM [facility] PAVILIONStart: 10-96-9196Cukcjlbgzg hospital visit by physicianAdmittingComment on above:Crohn's disease of small and large intestines with complication (HCC) [K50.819]Start: 02-14-2025 End: 18-24-2808Edfirvwxa to same day surgery centerColorectal SurgeryComment on above:preoppreop: No BP, NPOStart: 02-14-2025 End: 15-98-8594GRI panel - Blood by Automated countCOMPLETE BLOOD COUNT Lab Routine Crohn's disease of small and large intestines with complication (HCC) Expected: 02/14/2025 (Approximate), Expires: 05/16/2025[facility] Work Phone: Comment on above:Expected: 02/14/2025 (Approximate), Expires: 05/16/2025Start: 02-14-2025 End: 01-20-3825Ydmeunfxpcbtf metabolic 2000 panel - Serum or PlasmaCOMPREHENSIVE METABOLIC PANEL Lab Routine Crohn's disease of small and large intestines with complication (HCC) Expected: 02/14/2025, Expires: 05/16/2025[facility] Comment on above:Expected: 02/14/2025, Expires: 05/16/2025Start: 02-14-2025 End: 32-68-8995kopvatyqhz2025 1:00 PM EDT [facility] [address] [place] [address] Lanie Guillen MD [address] [place] [address] Pre OpCPM HOSP MED MAINComment on above:Pre OpStart: 02-14-2025 End: 43-11-5598Hvtkuvyhdg dkqtcfxpujfp22/13/2025 12:50 PM EDT PAT Pre Anesthesia [address] [place] [address] 3, [employer] [address] [place] [address] Pre OpPre AnesthesiaComment on above:Pre OpStart: 02-14-2025 End: 74-83-9272Vdqvalb encounter procedureAdmittingComment on above:preopStart: 02-14-2025 End: 95-89-1411Pyghksj encounter mituzqtcy44/13/2025 10:40 AM EDT Appointment Radiology [address] [place] [address] Crohn's disease of small and large intestines with complication (HCC) [K50.819]RadiologyComment on above:Crohn's disease of small and large intestines with complication (HCC) [K50.819]Start: 02-13-2025 End: 64-88-6127dahseqxaes47/12/2025 2:45 PM EDT Infusion Center Hematology/Oncology [address] [place] [address] [place] [address] Lab port / Reece Dressing change and lab drawHematology/OncologyComment on above:Lab port / Reece Dressing change and lab drawStart: 02-06-2025 End: 66-43-9106vkggwurxxe22/05/2025 2:30 PM EDT Infusion Center Hematology/Oncology [address] [place] [address] [place] [address] Lab port / Reece Dressing Change and lab drawHematology/OncologyComment on above:Lab port / Reece Dressing Change and lab drawStart: 17-09-2799Sxrkkdouy vaccinationFlu vaccine (#1)[facility]Start: 01-31-2025 End: 70-66-8075Mlezant encounter pjoszxfvg29/30/2025 11:00 AM EDT Office [place] [address] Surg Reg ApptFinancial Clearance Phone ScreeningComment on above:Surg Reg ApptStart: 01-30-2025 End: 77-05-2801hspjlnrmqnRoyjvphrir/OncologyComment on above:SKYRIZISKYRIZI / Reece dressing and lab drawStart: 01-24-2025 End: 120267-gopqacrtpegwer D3 [Mass/volume] in Serum or PlasmaVITAMIN D 25 HYDROXY Lab Routine Crohn's disease of small intestine with other complication (HCC) Expected: 01/24/2025, Expires: 04/25/2025[facility] Work Phone: Comment on above:Expected: 01/24/2025, Expires: 04/25/2025Start: 01-24-2025 End: 98-09-8886vvbslqlsiw12/23/2025 10:15 AM EDT Infusion Center Hematology/Oncology [address] [place] [address] Lab port / Reece Dressing change and lab drawHematology/OncologyComment on above:Lab port / Reece Dressing change and lab drawStart: 01-23-2025 End: 35-71-1501abeuplylze46/22/2025 2:30 PM EDT Infusion Center Hematology/Oncology [address] [place] [address] [place] [address] Lab port / Reece Dressing change and lab drawHematology/OncologyComment on above:Lab port / Reece Dressing change and lab drawStart: 01-17-2025 End: 95-55-2854gwifczqmrv75/16/2025 11:15 AM EDT Infusion Center Hematology/Oncology [address] [place] [address] [place] [address] Lab port / Reece Dressing change and lab drawHematology/OncologyComment on above:Lab port / Reece Dressing change and lab drawStart: 01-16-2025 End: 79-24-6396vavsnedhyv96/15/2025 2:30 PM EDT Infusion Center Hematology/Oncology [address] [place] [address] [place] [address] Lab port / Reece Dressing change and lab drawHematology/OncologyComment on above:Lab port / Reece Dressing change and lab drawStart: 01-16-2025 End: 68-76-3672xbbufmvawm40/15/2025 10:30 AM EDT [facility] [address] [phone] KrissGrace higgins, Formerly [facility] [address] [place] [address] Skyrizi f/u GastroenterologyComment on above:Skyrizi f/uStart: 01-09-2025 End: 47-43-2851Wqfyszn encounter procedureGastroenterologyComment on above: HPN/No RD availableCGRT page [id number]: 01-09-2025 End: 21-83-1109jwwiljtlck17/08/2025 12:30 PM EDT Education Gastroenterology [address] [address] Dietitian, Cgrt [address] [place] [phone] cgrt page [phone] Comment on above:cgrt page [phone]: 01-02-2025 End: 56-77-2157pgrhklybny47/01/2025 2:30 PM EDT Infusion Center Hematology/Oncology [address] [place] [address] [place] [address] SKYRIZI Hematology/OncologyComment on above:SKYRIZIStart: 12-29-2024 End: 31-21-0609Wganqo-up otekaebno93/27/2025 2:[address] [facility] Vascular Medicine [address] [place] [address] Mariam Dupont PA-C [address] [place] [phone] Follow upVascular MedicineComment on above:Follow upStart: 12-29-2024 End: 82-16-1297qfgzyuhcgg70/27/2025 1:15 PM EDT [facility] Vascular Medicine [address] [place] [address] Mariam Dupont PA-C [address] [place] [address] DX: DVTVascular MedicineComment on above:DX: DVTStart: 12-29-2024 End: 63-76-6178Brphwhi encounter bgsiyyplw43/27/2025 11:00 AM EDT Office Visit Vascular Medicine [address] [place] [address] Acute deep vein thrombosis (DVT) of axillary vein of left upper extremity (HCC) ...Vascular MedicineComment on above:Acute deep vein thrombosis (DVT) of axillary vein of left upper extremity (HCC) ...Start: 12-27-2024 End: 03-28-2025 reactive protein [Mass/volume] in Serum or PlasmaC-REACTIVE PROTEIN Lab Routine Elevated C-reactive protein On total parenteral nutrition (TPN) Expected: 12/27/2024, Expires: 03/28/2025leveland ClinicComment on above: Expected: 12/27/2024, Expires: 03/28/2025Start: 12-27-2024 End: 63-91-6942DDDCDVJJX BLDMANGANESE BLD Lab Routine On total parenteral nutrition (TPN) Toxic effect of manganese or manganese compound, accidental or unintentional, subsequent encounter Expected: 12/27/2024, Expires: 03/28/2025 [facility] ClinicComment on above:Expected: 12/27/2024, Expires: 03/28/2025Start: 12-27-2024 End: 15-13-2341Wzcfcsne [Mass/volume] in BloodSELENIUM BLOOD Lab Routine On total parenteral nutrition (TPN) Selenium deficiency Expected: 12/27/2024, Expires: 03/28/2025[facility] ClinicComment on above:Expected: 12/27/2024, Expires: 03/28/2025Start: 12-25-2024 End: 35-80-6309Hapuvdw evaluation of patient and mfillf2512/25/2024 3:00 PM EDT Nurse Visit Colorectal Surgery [address] [address] Therapy, Stoma [address] [place] [address] Please schedule f/u with Dr. Rousseau in 3 months with stoma nurse.Colorectal SurgeryComment on above:Please schedule f/u with Dr. Rousseau in 3 months with stoma nurse.Start: 12-25-2024 End: 73-83-5675Pmeckdk encounter znwfwjxel78/23/2025 2:30 PM EDT Office Visit Colorectal Surgery [address] [address] Elsy Rousseau DO [address] [place] [address] Please schedule f/u with Dr. Rousseau in 3 months with stoma nurse.Colorectal SurgeryComment on above:Please schedule f/u with Dr. Rousseau in 3 months with stoma nurse.Start: 12-25-2024 End: 41-23-4469Liyultn encounter fhyxjzbou85/23/2025 11:15 AM EDT Office Visit Dermatology [address] [address] Fartun Carpio MD [address] [place] [address] FBSCDermatologyComment on above:FBSCStart: 12-22-2024 End: 26-00-3055xyzfgnlfwe08/20/2025 10:30 AM EDT [facility] Gastroenterology [address] [phone] Grace Monterroso, Formerly [facility] [address] [address] Rodrick f/u GastroenterologyComment on above:Rodrick f/uStart: 12-12-2024 End: 22-60-7440Mfbdpld encounter procedureGastroenterologyComment on above:hpn page [phone]: 12-08-2024 End: 74-79-9912nccrbcojgj45/06/2025 11:00 AM EDT [facility] Gastroenterology [address] [phone] Grace Monterroso, RPh [address] [place] [address] Rodrick f/u GastroenterologyComment on above:Skyrizi f/uStart: 12-05-2024 End: 75-31-8201Asraotl encounter aozdwlrfq39/03/2025 2:00 PM EDT Visit (SP) Office Hematology [address] [place], [place] [phone] [place] [address] [place] [address] acute DVT on anticoagulationHematologyComment on above:acute DVT on anticoagulationStart: 11-10-2024 End: 34-34-0628KENM AND SCREEN,30 DAYTYPE AND SCREEN,30 DAY Blood Bank Routine Crohn's disease of small and large intestines with complication (HCC) Expected: 11/10/2024, Expires: 02/09/2025[facility] ClinicComment on above:Expected: 11/10/2024, Expires: 02/09/2025Start: 11-07-2024 End: 23-77-7204Euwfqpu encounter procedureRadiologyComment on above:CT ABD/PEL W IVCONStart: 11-07-2024 End: 65-64-9696Woemayz encounter kcqbixcps12/06/2025 10:40 AM EDT Appointment Radiology [address] [address] DXA-AXIAL SKELETONRadiologyComment on above:DXA-AXIAL SKELETONStart: 11-07-2024 End: 57-11-4559Wwmcjce encounter babldvarq50/06/2025 9:30 AM EDT Office Visit Urology [address] [address] Hiram Patel MD [address] [place] [address] Other urinary incontinence [N39.498]UrologyComment on above:Other urinary incontinence [N39.498]Start: 11-07-2024 End: 74-46-5165Monhyro evaluation of patient and nutelm6511/07/2024 8:15 AM EDT Nurse Visit Colorectal Surgery [address] [place] [phone] Therapy, Stoma [address] [facility] [place] [phone] Stoma Appt, Pt needs to be sized for new bagColorectal SurgeryComment on above: Stoma Appt, Pt needs to be sized for new bagStart: 11-03-2024 End: 72-75-6931WZRZE TB SCREENBLOOD TB SCREEN Lab Routine Crohn's disease of small and large intestines with complication (HCC) Expected: 11/03/2024, Expires: 02/02/2025[facility] HospitalComment on above:Expected: 11/03/2024, Expires: 02/02/2025Start: 11-03-2024 End: 58-81-1025Gyudhiyve B virus core Ab [Presence] in SerumHEPATITIS B CORE ANTIBODY TOTAL Lab Routine Crohn's disease of small and large intestines with complication (HCC) Expected: 11/03/2024, Expires: 02/02/2025[facility] Comment on above:Expected: 11/03/2024, Expires: 02/02/2025Start: 11-03-2024 End: 18-39-2152Sgqaspocd B virus surface Ab [Presence] in SerumHEPATITIS B SURFACE ANTIBODY Lab Routine Crohn's disease of small and large intestines with complication (HCC) Expected: 11/03/2024, Expires: 02/02/2025[facility] Work Phone: Comment on above:Expected: 11/03/2024, Expires: 02/02/2025Start: 11-03-2024 End: 15-81-4933Muxtlduic B virus surface Ag [Presence] in SerumHEPATITIS B SURFACE ANTIGEN Lab Routine Crohn's disease of small and large intestines with complication (HCC) Expected: 11/03/2024, Expires: 02/02/2025[facility] Comment on above:Expected: 11/03/2024, Expires: 02/02/2025Start: 11-03-2024 End: [id number]/02/2025 11:00 AM EDT [facility] [address] [id number] KrissGrace higgins, [facility] [address] [place] [id number] Medication EducationGastroenterologyComment on above:Medication EducationStart: 10-03-2024 End: 00-96-0949Mdedhkh encounter /01/2025 2:00 PM EDT Office Visit Urology [address] [address] Cecil Velazquez MD [address] [place] [id number] N39.498 (ICD-10-CM) - Other urinary incontinenceUrologyComment on above:N39.498 (ICD-10-CM) - Other urinary incontinenceStart: 09-28-2024 End: 99-39-1773Dpiezxg encounter dmzbyqnzr43/27/2025 3:30 PM EDT Office Visit Gastroenterology [address] [place] [address] Armand Baca MD, PhD [address] [place] [address] Follow up post opGastroenterologyComment on above:Follow up post opStart: 09-28-2024 End: 919423-gqskrrhtarftdv D3 [Mass/volume] in Serum or PlasmaVITAMIN D 25 HYDROXY Lab Routine Crohn's disease of small and large intestines with complication (HCC) Expected: 09/28/2024, Expires: 12/[facility]/20[facility] Comment on above:Expected: 09/28/2024, Expires: 12/28/2024Start: 09-28-2024 End: 99-71-1777PUH W Auto Differential panel - BloodCOMPLETE BLOOD COUNT AND DIFFERENTIAL Lab Routine Crohn's disease of small and large intestines with complication (HCC) Expected: 09/28/2024, Expires: 12/28/2024[facility] Comment on above:Expected: 09/28/2024, Expires: 12/28/2024Start: 09-28-2024 End: 50-10-0134Aocbjglhh (Vitamin B12) [Mass/volume] in Serum or PlasmaVITAMIN B12 Lab Routine Crohn's disease of small and large intestines with complication (HCC) Expected: 09/28/2024, Expires: 12/28/2024[facility] ClinicComment on above: Expected: 09/28/2024, Expires: 12/28/2024Start: 09-28-2024 End: 29-81-4167Ymaeqvpuswpnz metabolic 2000 panel - Serum or PlasmaCOMPREHENSIVE METABOLIC PANEL Lab Routine Crohn's disease of small and large intestines with complication (HCC) Expected: 09/28/2024, Expires: 12/28/2024[facility] Comment on above:Expected: 09/28/2024, Expires: 12/28/2024Start: 09-28-2024 End: 27-54-3406ZRZH PHENOTYPE/ENZYME ACTIVITYTPMT PHENOTYPE/ENZYME ACTIVITY Lab Routine Crohn's disease of small and large intestines with complication (HCC) Expected: 09/28/2024, Expires: 12/28/2024[facility] ClinicComment on above: Expected: 09/28/2024, Expires: 12/28/2024Start: 09-19-2024 End: 07-53-9109Eisqtyh encounter procedureVascular MedicineComment on above: Acute deep vein thrombosis (DVT) of axillary vein of right upper extremityRUE DVThpn page 22467/hospital dischargeStart: 09-18-2024 End: 51-62-6004Fpmbygp evaluation of patient and rmmppj7709/18/2024 3:00 PM EDT Nurse Visit Colorectal Surgery [address] [address] [phone] Therapy, Stoma [address] [place] [address] Please schedule f/u appt with Dr. Lawson and stoma nurse in [address]. [address] Lawson is unavailable, please schedule with Obdulia Tejeda PA-C and stoma. Colorectal SurgeryComment on above:Please schedule f/u appt with Dr. Lawson and stoma nurse in [address] Lawson is unavailable, please schedule with Obdulia Tejeda PA-C and stoma.Start: 09-18-2024 End: 47-93-9990Zuwpnzv encounter fyfgkactx43/17/2025 2:00 PM EDT Office Visit Colorectal Surgery [address] [address] Obdulia Tejeda PA-C [address] [place], [place] [phone] Please schedule f/u appt with Dr. Lawson and stoma nurse in [address]. [address] Lawson is unavailable, please schedule with Obdulia Tejeda PA-C and stomlizzeth.Colorectal SurgeryComment on above:Please schedule f/u appt with Dr. Lawson and stoma nurse in [address] Lawson is unavailable, please schedule with Obdulia Tejeda PA-C and stomlizzeth.Start: 09-18-2024 End: 18-57-7272Ophvnswpfy complete panel - UrineURINALYSIS (WITH MICROSCOPIC) WITH CULTURE IF INDICATED Lab Routine Other urinary incontinence Expected: 09/18/2024, Expires: 12/18/2024[facility] Work Phone: comment on above:Expected: 09/18/2024, Expires: 12/18/2024Start: 09-18-2024 End: 56-81-5275YL Upper extremity veins - bilateralUS ARM VEIN DVT [facility] Vascular Lab Routine Acute deep vein thrombosis (DVT) of axillary vein of right upper extremity (HCC) Acute deep vein thrombosis (DVT) of brachial vein of right upper extremity (HCC) Expected: 09/18/2024 (Approximate), Expires: 08/29/2025 [facility] Work Phone: Comment on above:Expected: 09/18/2024 (Approximate), Expires: 08/29/2025Start: 09-14-2024 End: 31-73-6647Yfcqnpcqm to same day surgery ogvobm9609/14/2024 9:00 AM EDT - 09/14/2024 10:00 AM EDT Surgery [facility] Radiology Procedure [address] [place] [address] Ghassan Angulo, SEAM PRESS OPERATOR.TOWER SUPERVISOR [address] [place] [address] LINE/PORT OR WOUND CHECKUniversity Of [facility] Hospital Radiology ProcedureComment on above:LINE/PORT OR WOUND CHECK Start: 09-14-2024 End: 15-87-7782Fvtqkc outpatient visit 5 minutesLINE/PORT OR WOUND CHECK On total parenteral nutrition 09/14/2024 9:00 AM EDTAV IRStart: 09-14-2024 Subsequent hospital visit by uptletpyk42/13/2025 9:00 AM EDT Hospital Encounter [facility] Radiology Procedure [address] [place] [address] Ghassan Angulo, SEAM PRESS OPERATOR.TOWER SUPERVISOR [address] [place] [address] On total parenteral nutrition [Z78.9][facility] Radiology ProcedureComment on above:On total parenteral nutrition [Z78.9]Start: 09-05-2024 End: 06-34-5231Fvrszfs encounter procedureGastroenterologyComment on above:hpn page 90759/discharge clinicStart: 08-29-2024 End: 67-45-2272Ubyjtiw encounter procedureGastroenterologyComment on above:hpn page 84334rpn page 29850/discharge clinicStart: 08-25-2024 End: 41-27-2958MD Abdomen and Pelvis W contrast IVCT ABDOMEN PELVIS W IV CONTRAST Additional Contrast? None Imaging Routine Bandemia Abscess of intestine due to Crohn's disease (HCC) Expected: 08/25/2024, Expires: 07/29/2025[facility] SystemComment on above:Expected: 08/25/2024, Expires: 07/29/2025 Start: 08-22-2024 End: 87-04-3208Bajivvy encounter procedureRadiologyComment on above:Crohn's disease of both small and large intestine with abscess (HCC) [K50.814] CT ENTEROGRAPHY W IVCONcrohn's diseaseStart: 08-15-2024 End: 06-49-7908Riebskc encounter qtiwrutrd55/11/2025 2:45 PM EST Office Visit [facility] Gastroenterology [address] [place] [address] Maru Maguire MD [address] [place] [address] 4 week RTCMUniversity of [facility] Health [facility] Comment on above:4 week RTCStart: 08-07-2024 End: 72-71-6709Vxrdqqf encounter /03/2025 9:30 AM EST [facility] [address] [place] [address] Hugh Cardona MD [address] [place] [address] Cysto-post UDS (08/03)[facility] HospitalComment on above:Cysto-post UDS (08/03)Start: 08-04-2024 End: 11-03-2024 reactive protein [Mass/volume] in Serum or PlasmaC-REACTIVE PROTEIN Lab Routine Crohn's disease of both small and large intestine with abscess (HCC)Expected: 08/04/2024, Expires: 11/03/2024[facility]:Expected: 08/04/2024, Expires: 11/03/2024Start: 08-04-2024 End: 28-23-5745FHZ W Auto Differential panel - BloodCOMPLETE BLOOD COUNT AND DIFFERENTIAL Lab Routine Crohn's disease of both small and large intestinewith abscess (HCC) Expected: 08/04/2024, Expires: 11/03/2024[facility] ClinicComment on above:Expected: 08/04/2024, Expires: 11/03/2024Start: 08-04-2024 End: 85-63-7731Ysbbiqchapxsv metabolic 2000 panel - Serum or PlasmaCOMPREHENSIVE METABOLIC PANEL Lab Routine Crohn's disease of both small and large intestine with abscess (HCC) Expected: 08/04/2024, Expires: 11/03/2024[facility] Comment on above:Expected: 08/04/2024, Expires: 11/03/2024Start: 08-03-2024 End: 24-46-2227Eeupsyi encounter xgqghvzot15/30/2025 11:00 AM EST [facility] [address] [place] [address] Bella Leary, SEAM PRESS OPERATOR - TOWER SUPERVISOR [address] [place] [address] UDSelect Medical Specialty Hospital - AkronComment on above:UDSStart: 07-29-2024 End: 48-41-4944S-reactive proteinC-Reactive Protein Lab Routine Bandemia Abscess of intestine due to Crohn's disease (HCC) Expected:07/29/2024, Expires: 07/29/2025on [facility] HospitalComment on above:Expected: 07/29/2024, Expires: 07/29/2025Start: 07-29-2024 End: 74-01-5266VBY W Auto Differential panel - BloodCBC with Auto Differential Lab Routine Bandemia Abscess of intestine due to Crohn's disease (HCC) Expected: 07/29/2024, Expires: 07/29/2025on [facility] HospitalComment on above: Expected: 07/29/2024, Expires: 07/29/2025Start: 07-29-2024 End: 31-10-5424Sgspjpalga [Mass/volume] in Serum or PlasmaCreatinine Lab Routine Bandemia Abscess of intestine due to Crohn's disease (HCC) Expected: 07/29/19, Expires: 07/29/2025on [facility] HospitalComment on above:Expected: 07/29/2024, Expires: 07/29/2025Start: 06-05-2024 End: 01-05-1062E-reactive proteinC-Reactive Protein Lab Routine Crohn's disease of small intestine with complication (HCC) Expected:06/05/2024, Expires: 06/05/2025on [facility] HospitalComment on above:Expected: 06/05/2024, Expires: 06/05/2025Start: 06-05-2024 End: 39-30-3807YM Abdomen and Pelvis W contrast IVCT ABDOMEN PELVIS W IV CONTRAST Additional Contrast? Oral Imaging Routine Crohn's disease of small i ntestine with complication (HCC) Expected: 06/05/2024, Expires: 06/05/2025on [facility] HospitalComment on above:Expected: 06/05/2024, Expires: 06/05/2025 Start: 06-05-2024 End: 46-55-0878Dadkccgjp to same day surgery lsquli6606/05/2024 10:00 AM EST - 06/05/2024 10:30 AM EST Surgery [facility] [address] [place] [address] Maru Maguire MD [address] [place] [address] COLONOSCOPY DIAGNOSTICSTCZ ENDOComment on above:COLONOSCOPY DIAGNOSTICStart: 43-18-2246Jrvwbddqvf hospital visit by rlgfdpago66/02/2024 10:00 AM EST Hospital Encounter [facility] [address] [place] [address] Maru Maguire MD [address] [place] [address] [facility] ENDOStart: 06-05-2024 End: 67-03-8677Hofevidhjgt flx dx w/[facility] HospitalStart: 05-22-2024 End: 96-58-9940Eeluevq encounter rgacucvsi62/18/2024 1:15 PM EST Appointment [facility] Pre-Admit Testing [address] [place] [address] OR 04/05 [facility] Pre-Admit TestingComment on above:OR tart: 86-18-7187Pbymbovzec MonitoringDepression MonitoringBon [facility] HospitalStart: 04-03-2024 Depression ScreenDepression ScreenBON SOUTHVIEW MEDICAL CENTERStart: 03-05-2024 COVID-19 Vaccine ( season)COVID-19 Vaccine ( season)[facility] [place] [facility] HospitalStart: 69-10-2177Cmpud-19 Vaccine ()Covid- 19 Vaccine ()[facility] Hospitaltart: 10-85-2252Ajibzxgat vaccinationProMedica Toledo Hospitaltart: 82-67-7380Dktanfojg vaccinationBON SOUTHVIEW MEDICAL CENTERStart: 89-60-7827Fmvizvra identified in Urine by CultureSelect Medical Cleveland Clinic Rehabilitation Hospital, Beachwoodtart: 68-51-2262Cqhzvzqeg vaccinationInfluenza Vaccine [facility]ertart: 02-16-2023 End: 57-53-6631GxfsbqdjnSelect Medical [facility] Clinic Rehabilitation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 Esnpiodz8GzpnLyzpfqHknau: 06-19-2020 End: 89-90-9058Xnsctnq SDOH Lfsasuria7BpdgAhhwrpHxjtzla smoking statusNo Smoking Status [facility] Start: 04-03-2023 End: 20-80-5493Cxn [facility]igned At [facility] Hospitaltart: 07-05-2021 End: 85-99-1847Uuzlhtf smoking status NHISCurrent some day smokerSelect Medical Cleveland Clinic Rehabilitation Hospital, Beachwoodtart: 91-93-0052Aec Assigned At [facility] Hospitaltart: 77-09-7111Xztskyq smoking status NHISCurrent Light tobacco smokerUniversity Hospitals Beachwood Medical CenterHistory of tobacco useCigarette SmokerWESTERN MASSACHUSETTS HOSPITALNanomed Skincare, [employer] ([employer]uz[employer] Nat[employer]) [facility] HOSPITALFliptu [facility] CENTERStart: 04-03-2023 End: 50-67-1127Bxdngzs of Social functionBON BAY HARBOR HOSPITALFliptu [facility] MEDICAL CENTERStart: 51-81-6522Rbjdouh Health Questionnaire 9 item (PHQ-9) total score [Reported]0B[facility] VALLEY REGIONAL MEDICAL CENTERMarblar [facility] MED[facility] CENTERStart: 78-14-5307Rviiodt Commentoccass.[facility] CO[facility] VALLEY REGIONAL MEDICAL CENTERADVIZEHas the electric, gas, oil, or water company threatened to shut off services in your home in past 12MoNoBon [facility] VenturesHow often to you have a drink containing alcohol?NeverBon [facility] [employer](I/We) worried whether (my/our) food would run out before (I/we) got money to buy more.Never trueBon [facility] HospitalStart: 05-22-2024 End: 10-83-7757Vbslothuv beverage intakeEx-drinker (finding)Bon [facility] HospitalTobaphysicians [facility] [place] smoking status NHISTobacco smoking consumption unknownProMedica Toledo Hospitaltart: 12-12-2022 End: 33-35-3530QqbKakyqo (finding)[facility](I/We) worried whether (my/our) food would run out before (I/we) got money to buy more. Sometimes trueUniversity Hospitals Geneva Medical CenterIn the past 12 months, was there a time when you were not able to pay the mortgage or rent on time?YesProMedica Toledo Hospitaltart: 09-18-2024 End: 72-83-6737Wxfxuaa smoking status NHISNever smoked tobaccoUniversity Hospitals Geneva Medical Center History of tobacco usePassive smokerUniversity Hospitals Geneva Medical CenterNEGATED: Highlighted row Start: NINFHistory of tobacco usePassive smokerUniversity Hospitals Geneva Medical Center Goals DatePatient GoalDesired Activity/StatePersonal health goalPersonal health goal Functional Status PvtaGnzqxvggglKcraftDklimtrp98-27-6450Tkv you deaf, or do you have serious difficulty hearingNo 08/30/2024 2:38 PM EST Hanane Feliciano, WAQAS [facility]02-26-2025Are you blind, or do you have serious difficulty seeing, even when wearing glassesNo 08/30/2024 2:38 PM Hanane Keene, WAQAS [facility]02-26-2025Do you have serious difficulty walking or climbing stairsNo 08/30/2024 2:38 PM Hanane Keene, WAQAS No [facility] Medical CenterFwjxew94-93-4906Ul you have difficulty dressing or bathingNo 08/30/2024 2:38 PM Hanane Keene, WAQAS [facility]02-26-2025 Because of a physical, mental, or emotional condition, do you have difficulty doing errands alone such as visiting a physician's office or shoppingNo 08/30/2024 2:38 PM Hanane Keene RN [facility]02-04-2025 Are you deaf, or do you have serious difficulty hearingNo 08/08/2024 12:30 PM Clare Akins RN [facility] HospitalEbcdaw22-39-7037Fji you blind, or do you have serious difficulty seeing, even when wearing glassesNo 08/08/2024 12:30 PM Clare Akins RN NoCCorey HospitalOfmpgc47-49-3923Uq you have serious difficulty walking or climbing stairsNo 08/08/2024 12:30 PM Clare Akisn RN [facility]02-04-2025Do you have difficulty dressing or bathingNo 08/08/2024 12:30 PM Clare Akins RN No [facility] Medical CenterGidzaz00-26-3611Lkngftw of a physical, mental, or emotional condition, do you have difficulty doing errands alone such as visiting a physician's office or shoppingNo 08/08/2024 12:30 PM Clare Akins RN No [facility] Mental Status IjzqWjlrwgwmbzMtfsxdIuejpcjl26-15-7777Jjaoiae of a physical, mental, or emotional condition, do you have serious difficulty concentrating, remembering, or making decisionsNo 08/30/2024 2:38 PM EST Hanane Feliciano RN No [facility] Medical CenterEmoelg09-88-1096Rleqkvq of a physical, mental, or emotional condition, do you have serious difficulty concentrating, remembering, or making decisions No 08/08/2024 12:30 PM Clare Akins RN [facility] Clinical Notes 10-30-2020 to 05-10-2025 Note Date & JwaxCxdkDqqivseq28-36-9487 [facility]Wood [facility]11-03-2025 NoteWood [facility] Hospital10-28-2025 NoteWood [facility] 04-26-2025 NoteWood [facility] Hospital09-26-2025 NoteWood [facility] Hospital09-26-2025 NoteWood [facility] Hospital09-25-2025 NoteWood [facility]09-23-2025 NoteBorderline elevated. Re-evaluation in 4-6 weeks is recommended if clinically indicated.Wood County HospitalComup health system on above:Order Comment: Specimen Type: STOOL SPECIMENOrdering Facility: [facility] Address:[address] [place], [place] [address]Tndkfp Comment: Interpretation:<50.0 ug/g: Vimovl55.0 ug/g - 120.0 ug/g: Borderline elevated. Re-evaluation in 4-6 weeks is recommended if clinically indicated.>120.0 ug/g: ElevatedPerformed By: #### [id number] ####[facility] LABCLIA [id number] [address] [place] [id number] [facility] 03-22-2025 NoteWood County Hospital09-12-2025 Instructions* Patient Instructions* Tre Bridges APRN.TOWER SUPERVISOR - 03/16/2025 1:27 PM EDT We discussed [...] This prescription [facility] to [facility] on [facility], with 60 tablets and two refills. - [...] protein shakes, such as Owyn (available at Luxtera, NEXGRID, or Revizer), to help meet your nutritional needs. Avoid consuming more than 25 grams of protein per serving to prevent diarrhea. - If tolerated, you may also try Anguillan yogurt, kefir, or probiotic capsules to support [...] normal for Steri-Strips to fall off at thisstage. - Continue to avoid heavy lifting and strenuous activities. Walking daily is encouraged, as tolerated. We discussed your current nutritional support: - You are receiving TPN (total parenteral nutrition), which is helping to maintain your nutritionalstatus. The goal is to gradually transition to more oral intake and reduce reliance on TPN over time. - Please continue to work with your GI specialist and nutrition team to manage your TPN and dietaryneeds. Additional instructions: - If your symptoms worsen, [...] if you have any questions or concerns. All the TRE vang APRN.CNP documented in this encounterUniversity Hospitals Geneva Medical Center09-12-2025 NoteWood County Hospital09-12-2025 History of Present illness Narrative* Tre Bridges APRN.CNP - 03/16/2025 8:43 AM EDT Images from the original note were not included. COLORECTAL SURGERY VIRTUAL VISIT FOLLOW UP/post op I have communicated my name and active licensure. The patient's identity and physical location wereverified at the time of this visit. Either the patient or their legal account representative has been informed of the risks and benefits of -- and alternatives to -- treatment through a remote evaluation andconsents to proceed with the evaluation remotely. I [...] bust through. She denies fever and has nothad any further emesis since that night, but [...] period. She is lactose intolerant and avoids dairy,using lactose-free protein shakes (Ensure) for supplemental nutrition. [...] believes it may be a dietitian or poly operator. She is requesting a refill of Zofran [...] Review of prior notes from OR, and [place] Analyticst messaging I have discussed Francine Hobson's treatment plan and/or results with pt. Treatment plan: 1. Crohn's disease of both small and large intestine with abscess (HCC) (K50.814) 2. Nausea (R11.0) 3. Nausea and vomiting, unspecified vomiting type (R11.2) 4. Gastro-esophageal reflux disease without esophagitis (K21.9) Recent emesis, bloating, and watery diarrhea may represent a Crohn s flare, possibly exacerbated bymenses, dietary triggers, or a viral illness. GERD and post-surgical changes may also contribute tosymptoms. - Start Zofran ODT 4 mg Q12H PRN nausea/vomiting; 60 tablets with 2 refills. - Encourage bland, easily digestible, protein-forward diet; avoid raw vegetables, high-fat foods, dairy, garlic, onions, cruciferous vegetables, and beans. - Recommend lactose-free protein shakes (e.g., OWYN <=25g protein/serving), kefir, Anguillan yogurt,or probiotic capsules to support gut microbiome. - Advised to continue Skyrizi as directed by GI. - Continue PPI or H2 sunshine as previously instructed by GI. - - Advised to maintain adequate hydration and avoid dietary triggers. - Follow-up with GI as scheduled; instructed to contact sooner if symptoms worsen or do not improve. Risk of morbidity, mortality and/or complications of treatment plan: low I spent a total of 28 minutes on the date of the service which included preparing to see the patient, nhmi-kx-adqd patient care, completing clinical documentation, obtaining and/or reviewing separately obtained history, performing a medically appropriate examination, counseling and educating the pat ient/family/caregiver, ordering medications, tests, or procedures, and communicating results to thepatient/family/caregiver. TRE BRIDGES APRN.[facility] Digestive Disease [place] [facility] [address] [place] [address] documented in this encounterUniversity Hospitals Geneva Medical Center09-11-2025 NoteWood County Hospital09-05-2025 Telephone encounter Note* Telephone Encounter - Grace Monterroso RPh - 03/09/2025 5:06 PM EDT Therapy plan discontinued as IV treatment is completed. [facility] Work Phone: 1(351) 877-503109-05-2025 Miscellaneous Notes* Telephone Encounter - Grace Monterroso RPh - 03/09/2025 5:06 PM EDT Therapy plan discontinued as IV treatment is completed. * Telephone Encounter - Temi Jonas - 03/09/2025 10:19 AM EDT Images from the original note were not included. ARMAND Eaton Can you please look into this template Thanks documented in this encounterUniversity Hospitals Geneva Medical Center09-05-2025 Telephone encounter Note * Telephone Encounter - Temi Jonas - 03/09/2025 10:19 AM EDT Images from the original note were not included. ARMAND Eaton Can you please look into this template Thanks [facility]09-04-2025 NoteWood County Hospital09-04-2025 History of Present illness Narrative* Armand Baca MD, PhD - 03/08/2025 2:53 PM EDT .Follow Up Visit SUBJECTIVE 39 year old [...] mouth every 6 hours as needed for pain.Do not exceed 5 doses in 24 hours. naloxone 4 mg/actuation nasal spray (NARCAN) Use 1 spray in one nostril as needed for overdose. Mayrepeat every 2 to 3 min in alternating [...] TPN, complicated by provoked DVT in [place] ([facility]), who presents to establish care in the IBD clinic at [facility]. #1 Crohn's disease, ileocolonic, penetrating, diagnosed in [...] of Skyrizi and close follow up. Internal colonoscopy6 months post ostomy takedown is recommended. Referral to IBD psychology to assist with oral intakefears. PLAN - Continue Skyrizi - Referral to IBD psychology. - Iron studies, TSH - Follow up in 4-6 weeks. - Colonoscopy in 6 months. Armand Castaneda MD, PhD March 08, 2025 2:54 PM documented in this encounterUniversity Hospitals Geneva Medical Center09-04-2025 Telephone encounter Note * Telephone Encounter - Gloria Hobbs LPN - 03/08/2025 12:21 PM EDT Images from the original note were not included. Copied from CC'd charts 03/08/25 11:24 am Armand aBca MD, PhD [facility], Grace, Formerly [facility]; Gloria Hobbs LPN Hi Grace, Thanks for the update. We should rule out C. Difficile. If negative, ok to proceed with loperamide. Golria, can you find out if patient needs stool tests faxed to her to do locally? Can you j carlos up C.Difficile and enteric panel? TY. Liborio C-Diff and enteric bacterial panel stool lab orders pended please advise, Called spoke with patient who stated she is in route to [facility] for an appointment with Thiago. Patient was updated of the plan and stated she will collect the supplies to collect when sheis on site. Gloria Hobbs LPN [facility]09-04-2025 Miscellaneous Notes* Telephone Encounter - Gloria Hobbs LPN - 03/08/2025 12:21 PM EDT Images from the original note were not included. Copied from CC'd charts 03/08/25 11:24 am Armand Baca MD, PhD Grace Monterroso, [facility]; Gloria Hobbs LPN Hi Grace, Thanks for the update. We should rule out C. Difficile. If negative, ok to proceed with loperamide. Gloria, can you find out if patient needs stool tests faxed to her to do locally? Can you j carlos up C.Difficile and enteric panel? TY. Liborio C-Diff and enteric bacterial panel stool lab orders pended please advise, Called spoke with patient who stated she is in route to [facility] for an appointment with Thiago. Patient was updated of the plan and stated she will collect the supplies to collect when sheis on site. Gloria Hobbs LPN documented in this encounterUniversity Hospitals Geneva Medical Center09-03-2025 History of Present illness Narrative* Grace Monterroso, Formerly [facility] - 03/07/2025 11:00 AM EDT IBD Medication Consult Digestive Disease and Surgery [place] Patient consents to pharmacy consult agreement. Patient Name: Francine Hobson IBD Provider: Dr. Kiko Castaneda Reason for consult: efficacy, safety, coordination, health maintenance review, and reconciliation Met with Francine today via phone. She reports: - tolerated Skyrizi infusion well - recovering from surgery, eating soft food/liquid; tried scramble eggs yesterday and didn't go well. Afraid of food. Only connecting with dietitian through TPN - hoping to get off TPN but need to beeating solids first in order to get off this. Incorporating in protein shakes. - last med rec was completed pre-surgery; not taking bowel stoppers currently. Feels today is the worse GI day sx wintre so far. Only taking liquid Tylenol PRN, [...] 2 days. Has fear of needles, cannot doself-injections but feels she will be able to [...] mouth every 6 hours as needed for pain.Do not exceed 5 doses in 24 hours. [...] in one nostril as needed for overdose. Mayrepeat every 2 to 3 min in alternating [...] INFLIXIMAB TOTAL DRUG LEVEL , INFLIXIMAB TOTAL ANTI- DRUG ANTIBODY LEVEL PULL No results found for: [...] Candidate for PCV20 One time dose of [id number] Hepatitis A ? No results found for: [...] normal): Yes (November 2024) - low bone density,recommended to endocrinology ASSESSMENT/PLAN Francine Hobson is a [...] recurrent partial SBO and was admitted at [facility]. CT revealed lower abdominal and pelvic abscess, possible fistula versus narrowing in sigmoid colon. She had aspiration of abscess at [facility] by IR. Was admitted at [facility] 07/2024 and transferred to [facility]. Was hospitalized at [facility] from 08/17/2024 thru 08/30/2024 for Crohn's colitis w/ intestinal obstruction. Underwent ex. lap excision of previous ileocolic anastomosis, and end ileostomy on 08/18/2024. Went to ED on 09/02/24 for concerns of possible occulusion of PICC line and was diagnosed with acute provoked DVT in LUE. Seen again in ED in October 2024 for concernsof potential line infection, but thought to be [...] appropriate here. - Updated med list in [facility] BIOLOGIC/SMALL MOLECULE DOSING Induction dose of risankizumab: 01/02/25; 01/30/25; 03/02/25 Scheduled to complete infusions at: [facility] Shari Transition from induction to maintenance: 03/30/25 Specialty pharmacy: TBD Health Maintenance - Candidate for several vaccines but has concerns about needles. - Recommend the following health maintenance appts: none -- currently up to date Next PharmD visit: Future Appointments Date Time Provider Department Center 03/08/2025 2:30 PM Armand Baca MD, PhD MARIBEL [facility] 03/16/2025 8:30 AM Tre Bridges APRN.RONEL [facility] 03/30/2025 12:00 PM Grace Monterroso RPh GASTMN Main A [facility] 05/07/2025 2:30 PM Mariam Dupont PA-C PERVMN Main J [facility] 05/23/2025 3:00 PM Elsy Rousseau DO CORSMN Main A [facility] Francine Joce endorses understanding to above. Denies other questions and concerns and is aware to contact us in future if needed. Grace Monterroso, PharmD, BCACP, MS IBD Clinical Pharmacist Interventions made: medication education, medication reconciliation, lab management, and medicationmanagement Time spent (mins): 30 documented in this encounterUniversity Hospitals Geneva Medical Center09-03-2025 [facility]Wood [facility]09-02-2025 Instructions* Patient Instructions* Mariam Dupont PA-C - 03/06/2025 2:23 PM EDT Continue Lovneox 80 mg sc q day Monitor for signs of bleeding Duration of therapeutic anticoagulation is as long as the Reece port is in place. Ordered virtual visit follow up with me around 03/2025 documented in this encounterUniversity Hospitals Geneva Medical Center09-02-2025 [facility]Wood [facility]09-02-2025 History of Present illness Narrative* Mariam Dupont PA-C - 03/06/2025 1:20 PM EDT Heart, Vascular & Thoracic [place] Department of Cardiovascular Medicine VIRTUAL VIDEO VISIT ESTABLISHED OUTPATIENT VISIT SERVICE DATE: 03/06/2025 Patient: Francine Hobson : 1985 This is a virtual video visit. It required patient-provider interaction for the medical decision making as documented below. Francine Hobson has consented to this video encounter. I have communicated my name and active licensure. The patient's identity and physical location wereverified at the time of this visit. Either the patient or their legal account representative has been informed of the risks and benefits of -- and alternatives to -- treatment through a remote evaluation andconsents to proceed with the evaluation remotely. Francine [...] found to have a right upper extremity brachialDVT on 08/21/2024. Patient has been off an [...] was transitioned to Lovenox at 1.5 mg/kg/dose scq day. PAST MEDICAL HISTORY Diagnosis Date Crohn [...] mouth every 6 hours as needed for pain.Do not exceed 5 doses in 24 hours. [...] in one nostril as needed for overdose. Mayrepeat every 2 to 3 min in alternating [...] found to have a right upper extremity brachialDVT on 08/21/2024. Patient has been off an [...] 02/14/2025) per pt 02/14/2025 documented in this encounterUniversity Hospitals Geneva Medical Center08-29-2025 Instructions* Patient Instructions* Tre Bridges APRN.TOWER SUPERVISOR - 03/02/2025 6:17 PM EDT We discussed [...] relaxers, and use lidocaine patches as needed forpain management. Cut the lidocaine patches in half [...] or tuna. Avoid raw vegetables, salads, and jkdoo-[id number]-baxkbs foods like steak. - Ensure you are [...] you experience any concerning changes, such as worseningpain, signs of infection, or difficulty with bowel movements. - If you have any questions or concerns, please reach out to our office via ArtistForcehart or by phone. Take care and continue to rest as you recover. All the best, TRE BRIDGES APRN.RONEL documented in this encounterUniversity Hospitals Geneva Medical Center08-29-2025 NoteWood [facility] Hospital08-29-2025 History of Present illness Narrative* Tre Bridges APRN.TOWER SUPERVISOR - 03/02/2025 4:29 PM EDT Images from the original note were not included. COLORECTAL SURGERY Follow-up March 02, 2025 Recording using ambient [employer] software for draft documentation of the visit was discussed with the patient/authorized account representative; all questions welcomed and answered. Patient/authorized account representative agreed to proceed Chief complaint: fu [...] to reintroduce other foods, such as oatmeal, dueto concerns about digestibility. ROS:Gastrointestinal: (+) abdominal pain, [...] morbidity, mortality and/or complications of treatment plan: low TRE BRIDGES APRN.CNP Digestive Disease [place] Colorectal Surgery [facility] [address] [place] [address] documented in this encounterUniversity Hospitals Geneva Medical Center08-29-2025 History of Present illness Narrative* Nikki Whittaker - 03/02/2025 2:22 PM EDT [facility] received prescription(s) for Rodrick from Dr. Armand Castaneda's office. Benefits investigation was conducted, indicating that a prior authorization is required by patient's insurance plan with [employer]. Encounter will be updated once prior authorization has been submitted by [facility]. Nikki Whittaker CPhT [facility] documented in this encounterUniversity Hospitals Geneva Medical Center08-29-2025 NoteWood [facility]08-29-2025 NoteWood [facility]08-29-2025 Note[facility]08-29-2025 Note[facility]08-29-2025 [facility]08-25-2025 Telephone encounter Note* Telephone Encounter - Rosalie Deal - 02/26/2025 12:50 PM EDT Patient is unable to make 03/02 appointment for staple [place]. Patient can be reached at [phone]. [facility]08-25-2025 Miscellaneous Notes* Telephone Encounter - Rosalie Deal - 02/26/2025 12:50 PM EDT Patient is unable to make 03/02 appointment for staple removal [place]. Patient can be reached at [phone]. documented in this encounterUniversity Hospitals Geneva Medical Center08-22-2025 NoteWood [facility]08-22-2025 Note[facility]08-21-2025 Note[facility]08-20-2025 Note[facility]08-19-2025 Note [facility]-18-20[facility]08-18-2025 [facility]08-17-20[facility] 02-17-2025 Note[facility]08-15-2025 [facility]08-14-2025 Note[facility]08-14-2025 [facility]08-14-2025 [facility]08-13-2025 Note [facility]-13-2025 History of Present illness Narrative* Neela Collins RN - 02/14/2025 1:54 PM EDT AMBULATORY PATIENT EDUCATION NOTE READINESS TO LEARN [...] Nothing to eat or drink after midnight, howand when to call for arrival time, pre-op [...] the office or send a message via [employer]od[employer] with questions/issues. FOLLOW-UP PLAN: Patient instructed to call with any further issues Electronically Signed By Neela Collins RN in Department: COLORECTAL SURGERY documented in this encounterUniversity Hospitals Geneva Medical Center08-13-2025 History and physical note * Lanie Guillen MD - 02/14/2025 1:17 PM EDT Images from the original note were not [...] or younger Non-male patient STOP-Bang Score: 0 [id number] Score: Age: <65 Sex: female [id number] Score: ARISCAT Score: Age: <=50 Preoperative SpO2: [...] of Crohn's disease since age 14 years; hashad 3 resections over time. REVIEW OF SYSTEMS: General: Positive for: unintentional weight change. Patient's weight gain: 40 lbs in 6 months Neurological: No history of TIA's, stroke, ENGLISH LECTURER tumor, impaired sensorium, hemiplegia, paraplegia orquadraplegia. No neurological symptoms or problems. Respiratory: No [...] > 1 time per night or hematuria. 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 Endocrine: Positive for: steroid for chronic problem (Last taken 6 months ago). Hematology: Positive for: bruises/bleeds easily and chronic anti-coagulation/platelet meds (She stopped Lovenoxweeks ago). Oncology: No history of CA metastasis, [...] 0.625 mL subcutaneously once daily. Inject entire contentsof one(1) syringe Patient not taking: Reported on [...] 424 QTC Calculation (Bazett) 460 Calculated P [place] 68 Calculated R [place] 53 Calculated T [place] 73 Impression NORMAL SINUS RHYTHM NORMAL ECG No results found for this or any previous visit (from the past 96337 hours). Instructions Given to Patient: Instructions located [...] Comment: Marijuana(last used 02/14/2025) per pt 02/14/2025 [facility]08-13-2025 History and physical note* Lanie Guillen MD - 02/14/2025 1:17 PM EDT Images from the original note were not [...] or younger Non-male patient STOP-Bang Score: 0 [id number] Score: Age: <65 Sex: female [id number] Score: ARISCAT Score: Age: <=50 Preoperative SpO2: >=96% Preoperative anemia: No Duration of surgery: >3 hrs Emergency procedure: No ARISCAT Score: Adult - Exam and Plan Prepared for Surgery: optimally prepared for surgery, pending [see comment]. Pending Labs and EKG CONSULTS: Planned Anesthetic: The Following Tests/Procedures Have Been Initiated: No orders of the defined types were placed in this encounter. REASON FOR VISIT: Frnacine Hobson is a 39 year old female [...] of Crohn's disease since age 14 years; hashad 3 resections over time. REVIEW OF SYSTEMS: General: Positive for: unintentional weight change. Patient's weight gain: 40 lbs in 6 months Neurological: No history of TIA's, stroke, ENGLISH LECTURER tumor, impaired sensorium, hemiplegia, paraplegia orquadraplegia. No neurological symptoms or problems. Respiratory: No [...] > 1 time per night or hematuria. 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 Endocrine: Positive for: steroid for chronic problem (Last taken 6 months ago). Hematology: Positive for: bruises/bleeds easily and chronic anti-coagulation/platelet meds (She stopped Lovenoxweeks ago). Oncology: No history of CA metastasis, [...] 0.625 mL subcutaneously once daily. Inject entire contentsof one(1) syringe Patient not taking: Reported on [...] 424 QTC Calculation (Bazett) 460 Calculated P [place] 68 Calculated R [place] 53 Calculated T [place] 73 Impression NORMAL SINUS RHYTHM NORMAL ECG No results found for this or any previous visit (from the past 69756 hours). Instructions Given to Patient: Instructions located in the after visit summary. Patient given verbal and written preop instructions and voices comprehension and compliance. SIGNATURE: Lanie uGillen MD PATIENT NAME: Francine Hobson DATE: February 14, 2025 TIME: 1:17 PM PAGER/CONTACT #: [1] Social History Tobacco Use Smoking status: Never Passive exposure: Current ( smokes out side per pt 02/14/2025) Smokeless tobacco: Never Vaping Use Vaping status: Never Used Substance Use Topics Alcohol use: Not Currently Drug use: Yes Types: Marijuana Comment: Marijuana(last used 02/14/2025) per pt 02/14/2025 documented in this encounterUniversity Hospitals Geneva Medical Center08-13-2025 History of Present illness Narrative* Lauren Amaya RT(R) - 02/14/2025 10:40 AM EDT Radiology Service Progress Note PATIENT NAME: Francine Hobson DATE OF SERVICE: February 14, 2025 TIME: 11:18 AM PATIENT IDENTITY VERIFICATION COMPLETED USING TWO (2) IDENTIFIERS: Name and Date of confirmedby patient verbally. FALL SCREENING: Has the patient had 2 falls in the last year or 1 fall with injury or currently using an Ambulatory Assistive Device (Walker, Cane, Wheelchair, Crutches, etc.)? No PATIENT GENDER DATA: Assigned female at . status: : No status:NO. PATIENT RELEVANT IMPLANT DATA REVIEWED: Not Applicable PATIENT PRESENTS WITH AN 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: No RADIOLOGY DEPARTMENT: General X-ray: Exam(s) Completed: GI/ Procedure(s): Barium enema with watersoluable contrast PERIPHERAL IV DATA: Not applicable SIGNED BY: RT Pia(R) February 14, 2025 11:18 AM documented in this encounterUniversity Hospitals Geneva Medical Center08-13-2025 NoteWood [facility]07-22-2025 Telephone encounter Note* Telephone Encounter - Naomi Crowder - 01/23/2025 9:16 AM EDT Called patient in regards to scheduling follow up with Dr. Hoover in 4-8 weeks, appointment ok to bevirtual per Dr. Hoover. Unable to leave voicemail due to voicemail full. Naomi Mensah Substitute Bus Driver [facility]07-22-2025 Miscellaneous Notes* Telephone Encounter - Naomi Crowder - 01/23/2025 9:16 AM EDT Called patient in regards to scheduling follow up with Dr. Hoover in 4-8 weeks, appointment ok to bevirtual per Dr. Hoover. Unable to leave voicemail due to voicemail full. Naomi Mensah Substitute Bus Driver documented in this encounterUniversity Hospitals Geneva Medical Center07-15-2025 History of Present illness Narrative* Grace Monterroso RP - 01/16/2025 10:30 AM EDT IBD Medication Consult Dig[facility]ive Disease and [facility] [place] Patient consents to pharmacy consult agreement. Patient Name: Francine Joce IBD Provider: Dr. Kiko Castaneda Reason for consult: education, coordination, health maintenance review, and reconciliation Met with Francine today. She reports: - tolerated Skyrizi infusion well. Scheduled for next dose. Denies changes with GI sxs yet. - reports all other meds are still same. - has fear of needles, cannot do self-injections but feels she will be able to administer OBI basedon prior demo of device CLINICAL SYMPTOMS Frequency [...] 0.625 mL subcutaneously once daily. Inject entire contentsof one(1) syringe psyllium (METAMUCIL FIBER SINGLES) 3.4 [...] INFLIXIMAB TOTAL DRUG LEVEL , INFLIXIMAB TOTAL ANTI- DRUG ANTIBODY LEVEL PULL No results found for: [...] Candidate for PCV20 One time dose of [id number] Hepatitis A ? No results found for: [...] normal): Yes (November 2024) - low bone density,recommended to endocrinology ASSESSMENT/PLAN Francine Hobson is a [...] recurrent partial SBO and was admitted at [facility]. CT revealed lower abdominal and pelvic abscess, possible fistula versus narrowing in sigmoid colon. She had aspiration of abscess at [facility] by IR. Was admitted at [facility] 07/2024 and transferred to [facility]. Was hospitalized at [facility] from 08/17/2024 thru 08/30/2024 for Crohn's colitis w/ intestinal obstruction. Underwent ex. lap excision of previous ileocolic anastomosis, and end ileostomy on 08/18/2024. Went to ED on 09/02/24 for concerns of possible occulusion of PICC line and was diagnosed with acute provoked DVT in LUE. Seen again in ED in October 2024 for concernsof potential line infection, but thought to be granulation tissue related than cellulitis. Given active inflammation, she initiated risankizumab on 01/02/25. Scheduled for surgery on 02/15/25 for samaritan of intestinal continuity. Medication Management - Continue risankizumab 600 mg IV at week 4, 8, then starting week 12, 360 mg SQ every 8 weeks. Will plan to recheck LFTs with/after third induction dose. - Baseline CT abd/pel prior not completed due to blood clots; will check with Dr. Hoover if still recommended as she started treatment now. - Updated med list in [facility] BIOLOGIC/SMALL MOLECULE DOSING Induction dose of risankizumab: 01/02/25; 01/30/25; 02/27/25 Scheduled to complete infusions at: [facility] Transition from induction to maintenance: 03/27/25 Specialty pharmacy: TBD Health Maintenance - Candidate for several vaccines but has concerns about needles. - Recommend the following health maintenance appts: none -- currently up to date Next PharmD visit: Future Appointments Date Time Provider Department Center 01/16/2025 2:30 PM LAB/PORT [facility] SH[facility]I HEMASA [facility] 01/23/2025 2:30 PM LAB/PORT [facility] SHAR[facility] HEMASA [facility] 01/30/2025 2:30 PM CHAIR 19 SHARI HEMTSA [facility] 01/31/2025 11:00 AM SURGICAL REGISTRATION 2 GRENCT None 02/06/2025 2:30 PM LAB/PORT [facility] SH[facility] HEMASA [facility] 02/13/2025 2:45 PM LAB/PORT [facility] SHARI HEMASA [facility] 02/14/2025 10:40 AM GI RADIO MAIN QB1 (I-STAT) GIMN Main - Q Bld 02/14/2025 12:30 PM A12, Admit Interview ADMI12 PSSC A Bldg 02/14/2025 12:50 PM 3, Pacc Main MNPACC Main - A Bld 02/14/2025 1:30 PM LAB A15 MAIN LB15 Main - A Bld 02/14/2025 2:15 PM Cors, Nurse Pt Ed BRYAN Main - A Bld 03/06/2025 1:15 PM Mariam Dupont, PITA KIRBYOMARN Main - J Bld 03/16/2025 8:30 AM Tre Bridges APRN.TOWER SUPERVISOR BRYAN Main - A Bld 05/21/2025 2:30 PM Elsy Rousseau, CORSMN Main - A Bld Francine Hobson endorses understanding to above. Denies other questions and concerns and is aware to contact us in future if needed. Grace Monterroso, PharmD, BCACP, MS IBD Clinical Pharmacist Interventions made: medication education, medication reconciliation, and medication management Time spent (mins): 20 documented in this encounterUniversity Hospitals Geneva Medical Center07-15-2025 NoteWood [facility]07-11-2025 Telephone encounter Note* Telephone Encounter - Elsy Hunter RD - 01/12/2025 3:06 PM EDT Home Nutrition Support Service Orders signed by CRISTOBAL. Call to [facility] [phone] and spoke with WAQAS Milian CNM. Patient will be able to have dressing changes and labs done there. Machine Buffer will reach out to patient to set [...] Discussed that since patient already going to [facility] [place], will go there for outpatient labs and dressing changes between now and surgery. Rec: [facility] to call pt to schedule labs and dressing changes. When patient admitted for surgery mid February, will need to re-evaluate need for HHC in post op setting. Elsy Hunter, MS, RD, LD, CNSC [facility]07-11-2025 Miscellaneous Notes* Telephone Encounter - Elsy Hunter RD - 01/12/2025 3:06 PM EDT Home Nutrition Support Service Orders signed by CRISTOBAL. Call to [facility] [phone] and spoke with WAQAS Milian CNM. Patient will be able to have dressing changes and labs done there. Machine Buffer will reach out to patient to set [...] Discussed that since patient already going to [facility] [place], will go there for outpatient labs and dressing changes between now and surgery. Rec: [facility] to call pt to schedule labs and dressing changes. When patient admitted for surgery mid February, will need to re-evaluate need for HHC in post op setting. Elsy Hunter MS, RD, LD, CNSC * Telephone Encounter - Elsy Hunter RD - 01/11/2025 11:21 AM EDT Home Nutrition Support Service Patient was seen in clinic this week and HHC situation was discussed. Patient already uses [facility] for Syrizi. She did not particularly like [facility] company, and has bowel reconnection surgery in 1 month. This week's labs were drawn while at [facility] for HPN/Dr. Mike appt. Rec: Standing orders for dressing changes pended in [facility] to CRISTOBAL pool in absence of Dr. Mike. Standing labs already in [facility]. Await signature of orders, [facility] perform dressing change weekly. Elsy Hunter MS, RD, LD, CNSC * Telephone Encounter - Cyn Adams - 01/10/2025 3:12 PM EDT FRANCINE HOBSON ([id number]) Mingo from [facility] called and stated that they received a referral way back in September for TPN lab work, Picc line, & dressing changes for this pt. They need a new order. [facility] [phone] documented in this encounterUniversity Hospitals Geneva Medical Center07-10-2025 Telephone encounter Note * Telephone Encounter - Elsy Hunter RD - 01/11/2025 11:21 AM EDT Home Nutrition Support Service Patient was seen in clinic this week and [facility] situation was discussed. Patient already uses [facility] for Syrizi. She did not particularly like [facility] company, and has bowel reconnection surgery in 1 month. This week's labs were drawn while at [facility] for HPN/Dr. Mike appt. Rec: Standing orders for dressing changes pended in [facility] to [facility] pool in absence of Dr. Mike. Standing labs already in [facility]. Await signature of orders, will confirm with infusion center that they willbe able to perform dressing change weekly. Elsy Hunter, MS, RD, LD, [facility]07-09-2025 Telephone encounter Note* Telephone Encounter - Cyn Adams - 01/10/2025 3:12 PM EDT FRANCINE HOBSON ([id number]) Mingo from [facility] called and stated that they received a referral way back in September for TPN lab work, Picc line, & dressing changes for this pt. They need a new order. [facility] [phone] [facility]07-08-2025 [facility]Wood [facility]07-08-2025 History of Present illness Narrative* Elsy Hunter RD - 01/09/2025 2:40 PM EDT [place] for gut rehabilitation and Transplant Nutrition Assessment [...] (4-5 times per night, before/during/after meal). The outputis watery. Relation to food/ fluid immediately. She [...] 2025 TIME: 2:40 PM documented in this encounterUniversity Hospitals Geneva Medical Center07-08-2025 History of Present illness Narrative* Berna Mike DO - 01/09/2025 1:00 PM EDT [facility] STAFF PHYSICIAN NOTE OF PERSONAL INVOLVEMENT IN CARE I have reviewed the progress note obtained and documented by the Nutrition Clinician Elsy Hunter RD. I have explored in detail with the patient the HPI and ROS, and they are summarized below. I havediscussed the case and management of the patient's care with the Nutrition Clinician. I agree with the recommendations as outlined by clinician above. I have reviewed available labs, and my exam and A/P are as follows: Recording using Futurederm software for draft documentation of the visit was discussed with the patient/authorized account representative; all questions welcomed and answered. Patient/authorized account representative agreed to proceed Francine Hobson is a 39 year old F with PMH significant for stricturing Crohn's disease complicated bySBO, s/p exlap, excision of previous ileocolonic anastomosis, end ileostomy with high output, DVT (on Eliquis). This is my first time seeing Ms. Hobson in clinic, however, she is known to me from [facility]in[facility]. She was admitted from 07/30-08/08/24 for abdominal pain secondary to partial SBO from Crohn's disease. On 08/08, was sent home with TPN and was taking budesonide at that time. After this, patient had two more inpatient admissions to [facility] and September, respectively. Notably, on 10/28/24, patient was seen in the ED for concern for in fection at the Reece site due to erythema [...] another replacement. She received antibiotics and a 72- hour heparin drip, and has been maintained on [...] about four packets daily mixed into two 60- ounce bottles, and consumes at least two bottles [...] of opium due to poor taste. She grindsall medications into fine powder and mixes them [...] with consuming caffeinated soda, and characterizes it assimilar to prior inflammation-related pain. She also reports intermittent episodes of sudden-onset vomiting, typically foamy and white, sometimes containing recently ingested food, occurring about six or seven times since her hospital discharge on 09/08. These episodes are preceded by feeling hot andsweating, and resolve quickly after one or two episodes. She notes that these episodes began about two weeks after her hospital discharge and last occurred last week. She denies persistent nausea or i nability to tolerate oral intake. Her bowel movements per rectum are infrequent, occurring once or twice per week, and consist mostlyof mucus. She denies any significant issues with the ostomy site or line site at present. Besides TPN, current medication management includes Lovenox injections, Imodium, Lomotil, Metamucil, and Skyrizi. She reports that cardiovascular team is managing her AC. She has two remaining Skyrizi infusions scheduled. She expresses no urgency to discontinue TPN. She expressed understanding thather high output may persist even after ostomy reversal due to her short gut. ROS: ROS completed and negative outside of the systems documented in the HPI. INVESTIGATIONS: All available pertinent interval investigations were reviewed and were notable for: ENDOSCOPY/PATHOLOGY: No recent EGD or colonoscopy at [facility] on file IMAGING: US arm vein [...] BP Cuff Size: Regular Adult) Pulse 72 Temp37.1 C (98.8 F) (Temporal) Ht 170.2 cm [...] her concerns and questions addressed today and appearssatisfied with the plan of care. DIAGNOSTIC ISSUES AND PLAN: 1. On total parenteral nutrition (TPN) (Z78.9) 2. Malnutrition of mild degree (HCC) (E44.1) 3. Therapeutic drug monitoring (Z51.81) Patient has gained significant weight, from 105 lbs on September 01 to 140 lbs today, indicating improvement in nutritional status. Currently on TPN, which is effectively managing nutritional needs.Diet includes dairy-free, gluten-free, and low-sugar foods, with frequent meals throughout the day.Oral rehydration solutions (ORS) are being used, with [...] Patient reports occasional nausea and vomiting, possibly relatedto Crohn's disease. No current issues with the [...] Hepatology & Nutrition [facility] [place] [facility] 01/08/25 Some aspects of note were written by MILES garcia Total time of this patient encounter today was >49 mins, including: preparation for visit, direct time with the patient, examination, orders, review of records, and documentation. * Carloshalima Elsy, RD - 01/09/2025 12:25 PM EDT [facility] ([facility] NAME: Francine Hobson AGE: [age] year old : PHONE: [phone] (home) [phone] (cell) Referring MD: No referring provider defined for this encounter. PCP: No primary care provider on file. Initial Visit This is a 39 year old female with an underlying diagnosis of Crohn's disease since 2007 and a physiology of SBS since 08/18/24. She has been followed by HPN since 08/08/24 who referred her to [facility] for further medical management of malabsorption. Patient reports that if she is late hooking up to PN she has obvious signs of dehydration, muscle cramping. She infuses PRN IVF 2-3 times weekly. She reports ostomy output has reduced from 4 L to 2-3L daily. She has been taking some ORS and limiting simple sugars in her diet. Reconnective surgery is planned with [facility] scheduled for 02/15/25. Discussed that PN has been of great benefit of patient and would benefit would continuing through her reconnection surgery. She did mention that due to a change in insurance, she no longer has [facility]. She would like to use the [facility] forlabs/dressing changes moving forward. Today she plans to have labs drawn at [facility]. Last Intestinal Surgery: 08/18/24: XL, [...] by [facility] HPN, Dr. Mike. Home Care: [facility] P: [phone], F: [phone] IV Pharmacy: [facility] P: [phone], F: [phone] Output: Urine output is medium in color and is estimated to be 900-1000 mL daily. The patient empties ostomy 15, times per day, 2-3 L daily (4-5 times per night, before/during/after meal). The outputis watery. Relation to food/ fluid immediately. She denies foamy/frothy stools. Occasional greasy/oily stools. Laboratory: Lab Collected Date 12/29/2024 11/20/2024 11/13/2024 11/06/2024 10/23/2024 10/11/2024 09/27/2024 Lab Source [facility] Na (mEq) 137 137 138 141 139 [...] 0.625 mL subcutaneously once daily. Inject entire contentsof one(1) syringe psyllium (METAMUCIL FIBER SINGLES) 3.4 [...] it helped, did not like taste, was dosedat 0.3 mL every 4 hrs PRN Pancreatic Enzymes: Never tried Probiotics: Taking Lactobacillus Antimicrobials: Never tried Antisecretory: Never tried Bile acid binding resin: Has tried, does not recall if working Growth Hormone: N/A GLP2: Never tried Crohn's management: Skyrizi ALLERGIES Allergen Reactions Ibuprofen Other: See Comments Nsaids (Non-Steroid* Other: See Comments I have reviewed allergies and medications. PAST MEDICAL HISTORY Diagnosis Date Crohn disease (HCC) PAST SURGICAL HISTORY Procedure Laterality Date BOWEL RESECTION HX PICC LINE INSERT/CONSULT 08/21/2024 IV access device: right double lumen Reece catheter placed 10/06/24. Catheter tip lies in the rightatrium per procedure report. The catheter exit site [...] week, patient will have drawn today at [facility]. Trace elements due 06/2025. Add Vitamin D to next routine labs. Patient Group: [facility] + HPN Follow Up: Return to clinic in 2-[address] Mike and RT RD, 1 month after planned reconnection surgery scheduled for 02/15/25.. Signed by: Elsy Hunter MS, RD, LD, [facility] 01/09/2025 The following reflects my findings: [facility] STAFF PHYSICIAN NOTE OF PERSONAL INVOLVEMENT IN CARE I have reviewed the history obtained and documented by Elsy Hunter RD and I personally participated in the price components. I have discussed the case and management of the patient's care. The following comments revise or confirm relevant price components of the note. documented in this encounterUniversity Hospitals Geneva Medical Center07-08-2025 NoteWood County Hospital07-08-2025 NoteWood County Hospital07-07-2025 NoteWood County Hospital07-07-2025 History of Present illness Narrative* Elsy Hunter RD - 01/08/2025 8:25 AM EDT [facility] ([facility]) Abstract moved to 7/8/[address] Mike[address] [facility] for pre and post clinic coordination of care. Elsy Hunter, MS, RD, LD, CNSC documented in this encounterUniversity Hospitals Geneva Medical Center06-30-2025 Miscellaneous Notes* Telephone Encounter - Parker Arce RD - 01/01/2025 12:44 PM EDT Home Nutrition Support Service Call to patient re: Mild ALT/AST elevation. Pt notes she did take some tylenol for a headache a couple weeks ago but it was only ~500 mg and has not taken any since then. She denies starting any other medications. She is asymptomatic of the elevation. Noted she is a bit over her intiial goal weightof 130 lbs at this time. Current weight 139 lbs and would like to maintain 135-140 lbs - she is within a healthy BMI. Discussed what elevation in LFT's means and discussed trying to optimize her froman anti diarrheal standpoint to reduce her reliance [...] available) Parker Arce RD documented in this encounterUniversity Hospitals Geneva Medical Center06-30-2025 Telephone encounter Note * Telephone Encounter - Parker Arce RD - 01/01/2025 12:44 PM EDT Home Nutrition Support Service Call to patient re: Mild ALT/AST elevation. Pt notes she did take some tylenol for a headache a couple weeks ago but it was only ~500 mg and has not taken any since then. She denies starting any other medications. She is asymptomatic of the elevation. Noted she is a bit over her intiial goal weightof 130 lbs at this time. Current weight 139 lbs and would like to maintain 135-140 lbs - she is within a healthy BMI. Discussed what elevation in LFT's means and discussed trying to optimize her froman anti diarrheal standpoint to reduce her reliance [...] with no RD available) Parker Arce RD [facility]06-27-2025 Note* Addendum Note - Darlene Solis RN - 12/29/2024 1:47 PM EDTAddended by: DARLENE SOLIS on: 12/29/2024 01:47 PM Modules accepted: Orders [facility]06-27-2025 Miscellaneous Notes* Addendum Note - Darlene Solis RN - 12/29/2024 1:47 PM EDTAddended by: DARLENE SOLIS on: 12/29/2024 01:47 PM Modules accepted: Orders * Telephone Encounter - Jaimie Carrasquillo RD - 12/29/2024 1:29 PM EDT Home Nutrition Support Service Received call from patient asking if she can also get dressing changed at [facility] today with lab draw. She also notes her insurance has resumed and needs referral to resume HHC with [facility].Advised pt can walk in to [facility] and ask RNs for dressing change - will also forward to NST RN to send referral Jaimie Carrasquillo RD, TA, ANA, CNSC documented in this encounterUniversity Hospitals Geneva Medical Center06-27-2025 Telephone encounter Note * Telephone Encounter - Jaimie Carrasquillo RD - 12/29/2024 1:29 PM EDT Home Nutrition Support Service Received call from patient asking if she can also get dressing changed at [facility] today with lab draw. She also notes her insurance has resumed and needs referral to resume HHC with [facility].Advised pt can walk in to [facility] and ask RNs for dressing change - will also forward to NST RN to send referral Jaimie Carrasquillo RD, TA, ANA, JOSHC [facility] Work Phone: [phone] History of Present illness Narrative* Mariam Dupont PA-C - 12/29/2024 1:15 PM EDT Images from the original note were not included. [facility] [place] [facility] Department of Cardiovascular Medicine SECTION [...] 0.625 mL subcutaneously once daily. Inject entire contentsof one(1) syringe midodrine (PROAMATINE) 10 mg tablet Take 10 mg by mouth three times a day. (Patient not taking: Reported on 12/25/2024) No current facility-administered medications for this visit. Review of history: Hospital admit from 08/17/2024 to 08/30/2024, 09/02/2024 to 09/06/2024 39 year old female with past medical history of Crohn's ileocolitis status post ileocecal [id number], recurrent partial small bowel obstruction who presented [...] to weight based Lovenox SC q 12 hours.She has a high output ostomy and is [...] the left side; left side compared to [place] [facility] 09/01/2024. RIGHT SIDE - DEEP VEINS [...] history of Crohn's ileocolitis status post ileocecal [id number], recurrent partial small bowel obstruction who presented [...] to weight based Lovenox SC q 12 hours.She has a high output ostomy and is [...] left side compared to [place] [facility] 09/01/2024. Patient continued to have marilee ostomy output. She was transitioned bay to Lovenox at 1.5 mg/kg/dose sc q day. US Arm Vein DVT [facility] 12/29/2024: Compared to prior study of 09/19/2024, Previous deep vein thrombosis no longer visualized on today's exam. Patient is planned for ostomy reversal on 02/15/2025. She will likely have the Reece removed afterthat. Patient wants to continue the Lovenox at her current dose. plan: Continue Lovneox 80 mg sc q day Monitor for signs of bleeding Duration of therapeutic anticoagulation is as long as the Reece port is in place. Ordered virtual visit follow up with me around 03/2025 Mariam Dupont PA-C December 29, 2024 2:22 PM documented in this encounterUniversity Hospitals Geneva Medical Center06-27-2025 NoteWood County Hospital06-27-2025 Instructions* Patient Instructions* Mariam Dupont PA-C - 12/29/2024 12:48 PM EDT Continue Lovneox 1mg/kg/dose (80 mg) sc q day Monitor for signs of bleeding Duration of therapeutic anticoagulation is as long as the Reece port is in place Ordered virtual visit follow up with me around 03/2025 documented in this encounterUniversity Hospitals Geneva Medical Center06-26-2025 Telephone encounter Note * Telephone Encounter - Gloria Hobbs LPN - 12/28/2024 7:36 AM EDT Images from the original note were not included. Patients insurance is back active and the Skyrizi approved 1st infusion scheduled 01/02/25, 2nd infusion scheduled 01/30/25. Will need to get auth extended to cover dose #3. Gloria Hobbs LPN [facility]06-26-2025 Miscellaneous Notes* Telephone Encounter - Gloria Hobbs LPN - 12/28/2024 7:36 AM EDT Images from the original note were not included. Patients insurance is back active and the Skyrizi approved 1st infusion scheduled 01/02/25, 2nd infusion scheduled 01/30/25. Will need to get auth extended to cover dose #3. Gloria Hobbs LPN * Telephone Encounter - Gloria Hobbs LPN - 12/20/2024 11:54 AM EDT Called spoke with patient who stated she called to follow up last week and was advised.she will receive a determination in the mail. Patient stated she has not yet received anything but she has been following up with her local pharmacy to try and retreive her lovenox prescription but has been advised the coverage is still not active. Gloria Hobbs LPN * Telephone Encounter - Gloria Hobbs LPN - 12/07/2024 1:30 PM EDT Images from the original note were not [...] steps. Gloria Hobbs LPN documented in this encounterUniversity Hospitals Geneva Medical Center06-24-2025 Instructions* Patient Instructions* Fartun Carpio MD - 12/26/2024 10:13 AM [...] Laundry Treatment UV Protectant (for sale on [employer]), just with one laundry cycle with Sun Guard gives clothing sun protection for 20 future washes and does not change the way your clothes look or feel. Sun protective clothing is another great option to protect your skin from the sun. There are several brands such as Coolibar and can be found online or at stores like [employer]. Seek shade when the sun's rays are strongest, between 10 a.m. and 2 p.m. Do not use tanning beds Keep babies and young children out of direct sunlight. Children should use rash guards during outdoor activities. . www.[employer] www.sunprecautions.com/shop The ABCDEs of Melanoma Skin cancer can [...] itches, or bleeds, you should see a event set up specialist. Asymmetry Border (irregularity) Color (not uniform, changes [...] to have it evaluated. documented in this encounterUniversity Hospitals Geneva Medical Center06-23-2025 NoteWood County Hospital06-23-2025 History of Present illness Narrative* Neela Sanches, WAQAS - 12/25/2024 3:36 PM EDT ET/WOCN Nursing Consult Topic: ET/WOCN Consultation Note ET Outcome: Patient presents to outpatient clinic to see [facility] nursing and Dr. Rousseau. Modified pouching slightly. Also, patient requesting good way to waterproof her pouch for summer. Order form for Sure Seal Ring provided. She cannot recall who her supply company is but will call if order form needs to be faxed. ET's Next Scheduled Visit: as needed Stoma Type: End ileostomy Diameter:1 8 Location: RLQ Protrusion: Budded Mucosal condition and [...] hour 15 minutes Neela ROSALES, RN, CWOCN * Neela Sanches, WAQAS - 12/25/2024 2:47 [place] [address] Patient: Francine Hobson Patient Address: [address] [place] [address] [place] [address] Preferred Gender: female Date of : 1985 Type of Stoma: End Ileostomy Diagnosis: Crohn's K50.90 OSTOMY SUPPLY ORDER FORM Other: Active Lifestyle SureSeal Ring Medium #[id number] 30 day use - 1 Box Refills: 11 Attending Physician: Dr. Rousseau: Office [phone] For immediate authorization, please contact the physician s office. [facility] Nurse: BOBBY Kaur, CWOCN SIGNATURE: Neela Sanches RN PATIENT NAME: Francine Hobson DATE: December 25, 2024 TIME: 3:16 PM CONTACT #: [phone] documented in this encounterUniversity Hospitals Geneva Medical Center06-23-2025 NoteWood County Hospital06-23-2025 History of Present illness Narrative* Elsy Rousseau, - 12/25/2024 2:30 PM EDT COLORECTAL SURGERY Post-Op Visit December 19, 2024 [...] mouth two times a day with meals. (Patientnot taking: Reported on 12/25/2024) 60 Packet 2 [...] non-tender without masses or hernias. Wound is wellhealed. Marketing Production Coordinator present: Yes Patient Entered Questionnaires 09/28/2024 PROMIS [...] redirect to the Timeline version of the VANCL SmartLink. Failed to redirect to the Timeline version of the VANCL SmartLink. 09/28/2024 PROMIS [employer] Physical Health [...] located in the arm, neck, and further down.Currently on Lovenox injections. - Continue Lovenox injections. - Discussed with metal bonding helper Dr. Hoover regarding timing of Skyrizi infusions and potential 2. Encounter for surgical aftercare following surgery of digestive system (Z48.815) Patient is scheduled for surgery on February 15 to reconnect the colon. Currently on TPN and has a stoma with some skin irritation. - Scheduled surgery for February 15 for samaritan of intestinal continuity - Will attempt to use the same incision to minimize scarring. - Sent consent form via [employer] for patient to sign. - Consulted stoma [...] infusions. Elsy Rousseau DO documented in this encounterUniversity Hospitals Geneva Medical Center06-23-2025 NoteWood County Hospital06-23-2025 History of Present illness Narrative* Fartun Carpio MD - 12/25/2024 11:15 AM EDT New Patient Consultation requested by Dr. Aracely [...] the nasal ala as well. No photos today,not present today. Pertinent Past Medical History: History [...] bleed or become tender, the patient will contactthe office for evaluation sooner than their interval [...] sunscreen SPF 30+, avoidance of sun during peakhours, and sun protective clothing. Return to clinic [...] Past Histories independently gathered by the clinical patient support tech and resident physician, and the remaining scribed [...] MD December 25, 2024 documented in this encounterUniversity Hospitals Geneva Medical Center06-23-2025 NoteWood County Hospital06-18-2025 Telephone encounter Note* Telephone Encounter - Glroia Hobbs LPN - 12/20/2024 11:54 AM EDT Called spoke with patient who stated she called to follow up last week and was advised.she will receive a determination in the mail. Patient stated she has not yet received anything but she has been following up with her local pharmacy to try and retreive her lovenox prescription but has been advised the coverage is still not active. Gloria Hobbs LPN [facility]06-05-2025 Telephone encounter Note* Telephone Encounter - Gloria Hobbs LPN - 12/07/2024 1:30 PM EDT Images from the original note were not [...] outcome for next steps. Gloria Hobbs LPN [facility]05-28-2025 Telephone encounter Note* Telephone Encounter - Grace Monterroso RPh - 11/29/2024 10:23 AM EDT Called Francine and informed her about PA approval at [facility]. Provided number, she will call to get scheduled. Also moved our appt back 2 weeks to 12/22. [facility]05-28-2025 Miscellaneous Notes* Telephone Encounter - Grace Monterroso RPh - 11/29/2024 10:23 AM EDT Called Francine and informed her about PA approval at [facility]. Provided number, she will call to get scheduled. Also moved our appt back 2 weeks to 12/22. * Telephone Encounter - Grace Monterroso RPh - 11/17/2024 11:25 AM EDT Called and informed patient about PA approval. Would prefer to get infusion at [facility]. Updated therapy plan, confirming with PA team if new PA is needed. documented in this encounterUniversity Hospitals Geneva Medical Center05-16-2025 Telephone encounter Note * Telephone Encounter - Grace Monterroso RPh - 11/17/2024 11:25 AM EDT Called and informed patient about PA approval. Would prefer to get infusion at [facility]. Updated therapy plan, confirming with PA team if new PA is needed. [facility]05-09-2025 Telephone encounter Note* Telephone Encounter - Amirah Han RN - 11/10/2024 9:45 AM EDT SPECIALTY CARE COORDINATION FOLLOW-UP NOTE Unable to reach Francine. Left you a voice message confirming the surgery date for 02/15 and pre op appointment date for 02/14. Will send a MyChart message. Amirah Han RN November 10, 2024 [facility]05-09-2025 Miscellaneous Notes* Telephone Encounter - Amirah Han RN - 11/10/2024 9:45 AM EDT SPECIALTY CARE COORDINATION FOLLOW-UP NOTE Unable to reach Francine. Left you a voice message confirming the surgery date for 02/15 and pre op appointment date for 02/14. Will send a MyChart message. Amirah Han RN November 10, 2024 documented in this encounterUniversity Hospitals Geneva [facility]05-07-2025 Telephone encounter Note * Telephone Encounter - Rosalie Deal - 11/08/2024 3:48 PM EDT Patient would like to confirm 02/15 surgery date. Patient can be reached at [phone]. [facility]05-07-2025 Miscellaneous Notes* Telephone Encounter - Rosalie Deal - 11/08/2024 3:48 PM EDT Patient would like to confirm 02/15 surgery date. Patient can be reached at [phone]. documented in this encounterUniversity Hospitals Geneva Medical Center05-06-2025 History of Present illness Narrative* Sonya Bautista RT(R) - 11/07/2024 10:40 AM EDT Radiology Service Progress Note PATIENT NAME: Francine Hobson DATE OF SERVICE: November 07, 2024 TIME: 11:15 AM PATIENT IDENTITY VERIFICATION COMPLETED USING TWO (2) IDENTIFIERS: Name and Date of confirmedby patient verbally. FALL SCREENING: Has the patient had 2 falls in the last year or 1 fall with injury or currently using an Ambulatory Assistive Device (Walker, Cane, Wheelchair, Crutches, etc.)? No PATIENT GENDER DATA: Assigned female at . status: : No status:NO. PATIENT RELEVANT IMPLANT DATA REVIEWED: Not Applicable PATIENT PRESENTS WITH AN 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: No RADIOLOGY DEPARTMENT: Bone Density PERIPHERAL IV DATA: Not applicable SIGNED BY: RT Ayah(Karly) November 07, 2024 11:15 AM documented in this encounterUniversity Hospitals Geneva Medical Center05-06-2025 NoteWood [facility]05-06-2025 NoteHNO ID: [id number] Author: GALEN PETERSON MA Service: ? Author Type: Circus Hand Type: Progress Notes Filed: 11/07/2024 14:52 Note Text: Post Void Residual done on patient with 76 cc residual volume remaining. notified. Galen Peterson [facility]05-06-2025 History of Present illness Narrative* Galen Peterson MA - 11/07/2024 10:08 AM EDT Post Void Residual done on patient with 76 cc residual volume remaining. notified. Galen Peterson MA * Hiram Patel MD - 11/07/2024 9:36 AM EDT [facility]IC[facility] RECONSTRUCTIVE SURGERY PATIENT HISTORY AND PHYSICAL EXAM PATIENT INFO: Francine Hobson is a 39 year old female. REFERRING M.D.: Obdulia Tejeda [address] [facility] [address] Consultation requested by Obdulia Tejeda PA-C for [...] with CD reports feelings of incomplete bladder emptying,frequency, urgency, UUI, FREDDIE, and insensate urinary leakage. [...] was discussed with the patient or authorized account representative. The patient or authorized account representative has agreed to proceed with the [...] ICD10: N39.46 - URODYNAMICS - CYSTO.PANENDO Gerri Momin DO Urogynecology and Reconstructive Pelvic Surgery Fellow, PGY-7 Electronically signed STAFF NOTE: I have personally modified the HPI and performed a PE & a face to face diagnostic evaluation onthis patient & discussed the above plan. Signed: Hiram Patel MD [facility] documented in this encounterUniversity Hospitals Geneva Medical Center05-06-2025 Telephone encounter Note * Telephone Encounter - Gloria Hobbs LPN - 11/07/2024 10:03 AM EDT Images from the original note were not included. Follow up pf prior auth for Skyrizi. Patient is currently on site for appointments Called patient , phone was answered by Arthur. This nurse requested patient please have the labs drawn while here to allow prior auth submission with insurance. Arthur verbalized understanding . Gloria Hobbs LPN [facility]05-06-2025 Miscellaneous Notes* Telephone Encounter - Gloria Hobbs LPN - 11/07/2024 10:03 AM EDT Images from the original note were not included. Follow up pf prior auth for Skyrizi. Patient is currently on site for appointments Called patient , phone was answered by Arthur. This nurse requested patient please have the labs drawn while here to allow prior auth submission with insurance. Arthur verbalized understanding . Gloria Hobbs LPN documented in this encounterUniversity Hospitals Geneva Medical Center05-06-2025 NoteWood [facility]05-06-2025 NoteWood [facility]05-06-2025 History of Present illness Narrative* Gabriel Bucknre, WAQAS - 11/07/2024 9:28 AM EDT ET/WOCN Nursing Consult Topic: ET/WOCN Consultation Note ET Outcome: Pt came to see the [facility] nurse for refitting with ConvaTec Prasad Fit Natura durahesive withconvex-it system. Pt has not ordered her ostomy supplies before this visit. Provided ordering supplier information/prescription. Provided 4 pouches/4 flanges. ET's Next Scheduled Visit: as needed. Stoma Type: End ileostomy Diameter:1 07/08 Location: RLQ Protrusion: Budded Mucosal condition and color: Red and moist Mucocutaneous junction Intact Peristomal Skin: Erythema Location of Skin Impairment: 6 o'clock Peristomal contour: Flat with shallow crease Supportive Tissue: Semisoft Character of output: large amount liquid, pt reported about 4L per day. Emptying frequency per day: multiple times per day Current pouching system: [place] New Image 2 1/4 convex flange, 1/[address] from 2-10o'clock area, drainable pouch Current wearing time: 3-4 [...] 1 hour BOBBY Sage RN CWOCN The [facility] nursing pager [phone] (M-F 7a-4p, Sat, Sun, Holiday 7a-3p) * Gabriel Buckner RN - 11/07/2024 9:06 [place] [address] Patient: Francine Hobson Patient Address: [address] [place] [address] [place] [address] Preferred Gender: female Date of : 1985 Type of Stoma: End Ileostomy Diagnosis: Crohn's K50.90 OSTOMY SUPPLY ORDER FORM Pouch: ConvaTec: Natura + 1 3/4 drainable pouch # [id number] 30 day use - 2 Boxes (20 pouches) Wafer: ConvaTec: Prasad-Fit Natura Convex-It precut 1 1/4 Durahesive # [id number] 30 day use - 2 Boxes( 20 flanges) Adhesive Removers: ConvaTec Esenta Wipes #[id number] 30 day use - 1 Box Moldable Ring: Radha CeraRing Regular # [id number] 30 day use - 1 Box Powder: ConvaTec Stomahesive # 77097 30 day use - 1 Bottle Skin Sealant: 3M No Sting, 30/Box # [id number] 30 day use - 1 Box Misc. Accessories: ConvaTec Diamonds #[id number] 30 day use - 1 Box as needed Option for pouch: High Volume Output Pouch - ConvaTec Natura + 1 3/4 high output pouch # [id number] 30 day use - as needed. Refills: 11 Attending Physician: Dr. Rousseau: Office [phone] For immediate authorization, please contact the physician s office. [facility] Nurse: BOBBY Lyons, CWOCN Note: SIGNATURE: Gabriel Sheriff RN PATIENT NAME: Francine Hobson DATE: November 07, 2024 TIME: 9:07 AM CONTACT #: [phone] documented in this encounterUniversity Hospitals Geneva Medical Center05-06-2025 NoteWood County Hospital05-02-2025 History of Present illness Narrative* Kriss, Grace, [facility] - 11/03/2024 11:00 AM EDT IBD Medication Consult [facility] [place] Patient consents to pharmacy consult agreement. The initial consult was conducted virtually with the patient where the consult agreement was explained. The patient may decline or cancel the agreement at any time. After consideration, the patient consented to the pharmacy consult agreement and agreed to allow medications be collaboratively managed by a pharmacist. Patient Name: Francine Hobson IBD Provider: Dr. Kiko Castaneda November 03, 2024 Reason for consult: education, [...] helps with injection - gets labs at [place] but prefers [facility] if possible. Wasn't able to get labs [...] INFLIXIMAB TOTAL DRUG LEVEL , INFLIXIMAB TOTAL ANTI- DRUG ANTIBODY LEVEL PULL No results found for: [...] Candidate for PCV20 One time dose of Icixdie22 Hepatitis A ? No results found for: [...] recurrent partial SBO and was admitted at [facility]. CT revealed lower abdominal and pelvic abscess, possible fistula versus narrowing in sigmoid colon. She had aspiration of abscess at [facility] by IR. Was admitted at [facility] 07/2024 and transferred to [facility]. Was hospitalized at [facility] from 08/17/2024 thru 08/30/2024 for Crohn's colitis w/ intestinal obstruction. Underwent ex. lap excision of previous ileocolic anastomosis, and end ileostomy on 08/18/2024. Went to ED on 09/02/24 for concerns of possible occulusion of PICC line and was diagnosed with acute provoked DVT in LUE. Seen again in ED in October 2024 for concernsof potential line infection, but thought to be [...] on 11/07/24. - Updated med list in [employer] Maintenance - Candidate for several vaccines [...] Bld 12/29/2024 2:30 PM Mariam Dupont PA-C [facility] - J Bld Francine Hobson endorses understanding to above. Denies other questions and concerns and is aware to contact us in future if needed. Grace Monterroso, PharmD, BCACP, MS IBD Clinical Pharmacist Interventions made: medication education, medication reconciliation, medication coordination, pre-treatment assessment, health maintenance need assessment, and medication management Time spent (mins): 35 documented in this encounterUniversity Hospitals Geneva Medical Center05-02-2025 NoteWood County Hospital04-23-2025 Note* Addendum Note - Obdulia Tejeda PA-C - 10/25/2024 12:52 PM EDTAddended by: OBDULIA TEJEDA on: 10/25/2024 12:52 PM Modules accepted: Orders [facility]04-23-2025 Miscellaneous Notes* Addendum Note - Obdulia Tejeda PA-C - 10/25/2024 12:52 PM EDTAddended by: OBDULIA TEJEDA on: 10/25/2024 12:52 PM Modules accepted: Orders * Telephone Encounter - Obdulia Tejeda PA-C - 10/25/2024 12:32 PM EDT Patient called back. She reports: -2-4L/ day [...] output ( can increase to 0.6 mL dependingon response) To send a [employer] message or contact the office later this week or early next week to check on bowel regimen with output. Advised that Dr. Rousseau wants her stoma for at least 6 months prior to surgery. Appointment with Dr. Rousseau in December, can be sooner if needed. Obdulia Tejeda PA-C * Telephone Encounter - Obdulia Tejeda PA-C - 10/25/2024 10:02 AM EDT Attempted to call patient to check on stoma output and bowel regimen. No answer. Unable to leave a voicemail. [employer] message sent yesterday to check in. Obdulia Tejeda PA-C documented in this encounterUniversity Hospitals Geneva Medical Center04-23-2025 Telephone encounter Note * Telephone Encounter - Obdulia Tejeda PA-C - 10/25/2024 12:32 PM EDT Patient called back. She reports: -2-4L/ day [...] output ( can increase to 0.6 mL dependingon response) To send a [employer] message or contact the office later this week or early next week to check on bowel regimen with output. Advised that Dr. Rousseau wants her stoma for at least 6 months prior to surgery. Appointment with Dr. Rousseau in December, can be sooner if needed. Obdulia Tejeda PA-C [facility]04-23-2025 Telephone encounter Note* Telephone Encounter - Obdulia Tejeda PA-C - 10/25/2024 10:02 AM EDT Attempted to call patient to check on stoma output and bowel regimen. No answer. Unable to leave a voicemail. [employer] message sent yesterday to check in. Obdulia Tejeda PA-C [facility]04-22-2025 Telephone encounter Note* Telephone Encounter - Jaimie Carrasquillo RD - 10/24/2024 11:28 AM EDT Home Nutrition Support Service Labs received mostly stable with slightly elevated phos. No I/Os received. Note that potential for surgery (ostomy reversal) in February. Call to patient to check in - she says she keeps trying to sendI/Os but they are being sent to her [...] an additional dose at times (sometimes 5x perday). She does not think this is slowing [...] in PN. She feels to tired to animal trainer supervisor to PRN IVF throughout the day. We [...] not contacted anyone about it because there isno associated pain and is withdrawing/flushing okay. Pt [...] schedule Jaimie Carrasquillo RD, LD, MFN, CNSC [facility] Work Phone: [phone]) 692-720804-22-2025 Miscellaneous Notes* Telephone Encounter - Jaimie Carrasquillo RD - 10/24/2024 11:28 AM EDT Home Nutrition Support Service Labs received mostly stable with slightly elevated phos. No I/Os received. Note that potential for surgery (ostomy reversal) in February. Call to patient to check in - she says she keeps trying to sendI/Os but they are being sent to her [...] an additional dose at times (sometimes 5x perday). She does not think this is slowing [...] in PN. She feels to tired to animal trainer supervisor to PRN IVF throughout the day. We [...] not contacted anyone about it because there isno associated pain and is withdrawing/flushing okay. Pt confirmed that cuff is not exposed Rec: -will add above update to [facility] and forward to Dr Mike, NST RNs and [facility] as updates -defer line concerns to NST RNs to address -update to [facility] re: output. -will await pt call back with plan to review ORS and increase in PN volume/kcal. -pt needs f/u appt scheduled - forwarded update to clerical team to schedule Jaimie Carrasquillo RD, LD, MFN, CNSC documented in this encounterUniversity Hospitals Geneva Medical Center04-18-2025 Telephone encounter Note * Telephone Encounter - Nathanael Patel RN - 10/20/2024 6:03 PM EDT [facility] nursing returned patient message regarding needing to order supplies. Left Message: No, spoke with pt Information/Recommendations provided regarding patient tried new system and wants to order more butwas informed to get correct fit she will have to visit the outpatient clinic. Time spent: 15 minutes Nathanael Patel RN [facility]04-18-2025 Miscellaneous Notes* Telephone Encounter - Nathanael Samuel RN - 10/20/2024 6:03 PM EDT [facility] nursing returned patient message regarding needing to order supplies. Left Message: No, spoke with pt Information/Recommendations provided regarding patient tried new system and wants to order more butwas informed to get correct fit she will have to visit the outpatient clinic. Time spent: 15 minutes Nathanael Patel RN * Telephone Encounter - Yazmin Jack RN - 10/20/2024 5:20 PM EDT Pt would like some help on how to order more supplies. Call back [phone] documented in this encounterUniversity Hospitals Geneva Medical Center04-18-2025 Telephone encounter Note * Telephone Encounter - Yazmin Jack RN - 10/20/2024 5:20 PM EDT Pt would like some help on how to order more supplies. Call back [phone] [facility]03-27-2025 Instructions* Patient Instructions* Aracely Lentz PA-C - 09/28/2024 4:45 PM [...] to move forward with documented in this encounterUniversity Hospitals Geneva Medical Center03-27-2025 NoteWood County Hospital03-27-2025 History of Present illness Narrative* Armand Baca MD, PhD - 09/28/2024 3:46 PM EDT NEW PATIENT SUBJECTIVE 39 year old female with Crohn's disease to establish care HISTORY: Patient is a 39 year old female with CD dx 2007. Was on Liadla for 1-2 years (no response), then onAZA only. Developed intra-abdominal abscess + SBO and underwent ileocecal resection in 2013. Was onAZA post op and then started Humira in 2014 (stopped 2 years ago due to patient not wanting injections). Was put on Rinvoq 2022 but was not compliant with it. Ran out of it 02/2024. Underwent CT 01/2024 showed partial small bowel obstruction. 04/2024 Had a recurrent partial SBO and was admitted at [facility]. CT revealed lower abdominal and pelvic abscess, possible fistula versus narrowing in sigmoid colon. Her CT on 05/02/24 was concerning for multiloculated abdominal/pelvic abscesses. She had aspiration of abscess at [facility] by IR. Was admitted at [facility] 07/2024 for 20 days and was hospitalized [facility] from 08/17/2024 thru 08/30/2024 for Crohn's colitis w/ intestinal obstruction. Underwent ex. Lap excision of previous ileocolic anastomosis, and end ileostomy on 08/18/2024. Went to ED on09/02/24 for concerns of possible occulusion of PICC line and was diagnosed with acute provoked DVT in LUE. TPN restarted w/o issues and discharged on 09/06/2024. Today she states she has an increased appetite and is having a high output. Is taking 2 imodium + 2lomotil before each meal and bedtime. Has had [...] (Patient not taking: Reported on 09/28/2024) 74 tablet0 calcium polycarbophil (FIBERCON) 625 mg tablet Take 1 tablet by mouth two times a day. (Patient nottaking: Reported on 09/18/2024) 60 tablet 2 loperamide (IMODIUM) 2 mg cap(s) Take 2 capsules by mouth before meals and at bedtime. (Patient nottaking: Reported on 09/28/2024) 240 capsule 2 acetaminophen [...] Soft and non-tender. No masses or organomegaly. Ostomybag on LLQ Skin: no rashes or lesions Assessment IMPRESSION (portions of this note have been copied from ... prior note and updated to reflect medical decision making today) Patient is a 39 year old female with history of Crohn's disease. Previously treated with Liadla for1-2 years (no response), then on AZA only. [...] [facility] abdominal and pelvic abscess, possible fistula versus narrowing in sigmoid colon. She had aspiration of abscess at [facility] by IR. Was admitted at [facility] 07/2024 and t ransferred to [facility]. Was hospitalized at [facility] from 08/17/2024 thru 08/30/2024 for Crohn's [...] and do a CT scan. Went over and put in consult for dermatology and [...] to move forward with Aracely Lentz PA-C [facility] STAFF PHYSICIAN NOTE OF PERSONAL INVOLVEMENT IN CARE I have reviewed the consult note obtained and documented by the physician religious assistant and I personally participated in the price [...] (self-discontinued in 2022), recent hospitalization with excision ofprevious ileocolic anastomosis, and end ileostomy on 08/18/2024, TPN, complicated by provoked DVT inLUE (PICC line), who presents to establish care in the IBD clinic at [facility]. #1 Crohn's disease, ileocolonic, penetrating, diagnosed in [...] not approved by insurance, infliximab (self-discontinued Humira inthe past) would be next best option, particularly given IV route, which is preferred by patient. Wewill refer her to our IBD pharmacist for further discussion. CT abdomen prior is recommended. PLAN: - CT abdomen - Referral to IBD pharmacist. - Return visit in 4 weeks. SIGNATURE: Armand Castaneda MD, PhD DATE of SERVICE: September 29, 2024 TIME of SERVICE: 11:59 AM I spent a total of 45 minutes on the date of the service which included preparing to see the patient, [id number] patient care, completing clinical documentation, obtaining and/or reviewing separately obtained history, performing a medically appropriate examination, counseling and educating the pat ient/family/caregiver, and ordering medications, tests, or procedures. Armand Castaneda MD, PhD September 28, 2024 3:46 PM documented in this encounterUniversity Hospitals Geneva Medical Center03-18-2025 Instructions* Patient Instructions* Mariam Dupont PA-C - 09/19/2024 3:05 PM [...] up in one month documented in this encounterUniversity Hospitals Geneva Medical Center03-18-2025 History of Present illness Narrative* Mariam Dupont PA-C - 09/19/2024 2:30 PM EDT Images from the original note were not included. [facility] [place] [facility] Department of Cardiovascular Medicine SECTION [...] by mouth two times a day. (Patient nottaking: Reported on 09/18/2024) diphenoxylate-atropine (LOMOTIL) 2.5-0.025 mg [...] history of Crohn's ileocolitis status post ileocecal [id number], recurrent partial small bowel obstruction who presented [...] to weight based Lovenox SC q 12 hours.She has a high output ostomy and is [...] history of Crohn's ileocolitis status post ileocecal [id number], recurrent partial small bowel obstruction who presented [...] to weight based Lovenox SC q 12 hours.She has a high output ostomy and is [...] the left side; left side compared to [place] [facility] 09/01/2024. plan: Continue Lovneox 1mg/kg/dose (50 [...] 19, 2024 4:12 PM documented in this encounterUniversity Hospitals Geneva Medical Center03-18-2025 NoteWood County Hospital03-18-2025 NoteWood County Hospital03-18-2025 History of Present illness Narrative* Darlene Solis RN - 09/19/2024 1:[address] and MICROSTRATEGY ARCHITECT visit, met with pt and her to see if had any questions or concerns for TPN administration or catheter. Pt said though has not been home long, is doing ok, had no concerns;. Now has reece catheter, reviewed how often to flush each lumen of catheter with normal saline and tomake sure keeps each lumen clamped when not in use. Pt had catheter taped up and secured, did provide some clips and demonstrated how to use as option as well. Gave few extra home self monitoring sheets to use. Darlene Solis, WAQAS * Abdirahman Christie RD - 09/19/2024 9:00 AM EDT [facility] STAFF PHYSICIAN NOTE OF PERSONAL INVOLVEMENT IN [...] presents today at discharge clinic for follow upafter recent inpatient hospitalization at [facility] from 08/17/2024 thru 08/30/2024 for Crohn's colitis in the setting of intestinal obstruction. TPN was continued following OR which occurred on 08/18/2024 (as noted below) . TPN initially started on 07/19/2024 at outside hospital. Admission Imaging with active inflammatory small bowel crohn's disease with luminal narrowing, distribution of active inflammatory disease, similar compared to 07/30/24 imaging with interval increasedupstream dilation, suggesting progressive obstruction. Multifocal stricturing in the terminal ileum. On 08/18/24: Exploratory laparotomy, excision of previous ileocolic anastomosis, and end ileostomy.Post op with ABEL and bowel stoppers added. Loperamide 4 mg AC and HS, Lomotil 2 tablets AC, and fibercon BID. and HS. Positive right axillary vein DVT and vascular consulted and lovenox initiated to be followed by [facility]. Psychology also consulted. GI soft was initiated inpatient and tolerated. Additional PMH includes: nicotine use disorder, feeding difficulties, mood disorder, anxiety, and depression. Surgical history includes: s/p ileocecal resection (2005) c/b abscesses and SBO. Presented to [facility] on 09/02/2024 for left DL PICC line concerns of occulsion. Purple lumen not patent and no blood return. Was admitted with diagnosis of clotted LUE PICC line. Diagnosis with acute provoked DVT in LUE. Was very consistent with taking Lovenox injections. Heparin initiated to bridge to Eliquis. PICC removed and IR placed right DL reece.Tip in expected location of RA. Was also given IV iron during admission. TPN restarted w/o issues and discharged on 09/06/2024. HOME NUTRITION SUPPORT DISCHARGE PLAN OF CARE SERVICE DATE: 08/30/2024 SERVICE TIME: 1245 DISCHARGE DATE: 08/30/24 Discharge Plan: Plan to discharge: Home HPN / IVF Physician Name/Phone/Fax: Dr. Berna Mike, [facility] Home Nutrition Support Service P: [phone], F: [phone] Infusion Pharmacy Name/Phone/Fax: [facility] P: [phone], F: [phone] Home Health Care Name/Phone/Fax:[facility] P: [phone], F: [phone] Treatment Plan: Indications: Short Bowel Syndrome Length [...] (106 lb 4.2 oz) (08/28/24 1706 : Ancelmo, Imelda, CT) Dosing Weight: 50.6 kg (111 lb 8.8 oz) Dosing Weight Type: Admit weight (standing 08/17) IV access: Access Discharged on: Teresita Follow Up: Return to clinic Follow Up Frequency: 2 weeks MNT Billing: $ Reassessment: 16-30 minutes SIGNATURE: Darlene Mcfarlane MS, RD, LD PATIENT NAME: Francine Hobson DATE: August 30, 2024MRN: [id number] TIME: 12:12 PM Weight 09/03/2024 110 lb 10.7 oz 09/01/2024 105 lb 08/28/2024 106 lb 4.2 oz 08/27/2024 117 lb 1 oz 08/26/2024 117 lb 1 oz 08/23/2024 116 lb 13.5 oz 08/23/2024 Today patient presents to the outpatient NST discharge clinic for follow up with her . Since discharge had issues with PICC line as noted above and admitted to [facility] where Reece placed. Patient is tolerating [...] active. It dissipated in a few minutes. [place] she may be doing too much. Denies [...] for follow up after recent hospitalization at [facility] from 08/17/2024 thru 08/30/2024 for crohn's colitis in the setting of intestinal obstruction. On 08/18/24: Exploratory laparotomy, excision of previous ileocolic anastomosis, and end ileostomy. Post op with ABEL and bowel stoppers added. On 09/02/2024 had issues with flushing PICC and presented to [facility] and admitted with left DVT. Heparin with [...] month with Dr. Mike, order placed. Our project controls scheduler will call you -We are increasing your daily volume from 3.5=> 3.8 liters -We are increasing your calories by ~ 200 -Please record all I and O's -Let the team know if you need extra shelf stable fluid more than 3 times a week, 2. Attention Central line care -Dressing change once a week by [facility] -Monitor for signs or symptoms of [...] months. Note plans for future stoma takedown. was hopeful patient would be able to [...] before meals and at night. She saw LAZARA yesterday who started Cholestyramine and discussed possible [...] as light in color, and patient has thefollowing measurable drainage type(s): ileostomy >4000 mLs (estimated [...] The stitch has not been removed. The catheterdressing is changed weekly. Patient is prescribed 50% ethanol lock therapy. Patient is using as prescribed. Patient is flushing etoh: YES Does patient have homecare nursing? YES Reviewed how to contact HPN: via phone, email, after hours pager: YES Reviewed symptoms of: dehydration, fever, SOB, shaking/chills, and/or sweats during infusion, edema: YES Reviewed catheter malfunction: YES, NST RN saw patient after RD/MICROSTRATEGY ARCHITECT visit Nutrition Focused Physical Exam: Refer to [...] in 4-[address] Mike and DENISE. Signed by: Abdirahman Christie RD Date: 09/18/2024 Total time of this patient encounter today was >60 mins, including: preparation for visit, direct time with the patient, examination, orders, review of records, and documentation. documented in this encounterUniversity Hospitals Geneva Medical Center03-18-2025 NoteWood [facility]03-18-2025 History of Present illness Narrative* Abdirahman Christie, DENISE - 09/19/2024 11:49 AM EDT Home Nutrition Support Service - Hospital Discharge [...] months. Note plans for future stoma takedown. was hopeful patient would be able to [...] as light in color, and patient has thefollowing measurable drainage type(s): ileostomy >4000 mLs (estimated based on discussion w/ patient). The patient empties ostomy ~20 times per day. Total Increments: [address], LD, [facility] documented in this encounterUniversity Hospitals Geneva Medical Center03-18-2025 Telephone encounter Note * Telephone Encounter - Angelina Feldman RN - 09/19/2024 11:46 AM EDT [facility] nursing returned patient message regarding supplies. Left Message: No Information/Recommendations provided regarding - spoke with spouse who requested larger pouches andextension tubing due to high output at night. Patient currently on campus for procedure. Supplies set aside to be picked - [facility] 1 07/08 convex-it, drainable and high volume pouches, gravity drainage bag. After call life insurance underwriter was notified by a colleague that she had already provided supplies to spouse. Unclear if the return call above was before or after. If he returns to desk will assess needs. Time spent: 15 minutes Angelina Feldman RN, BSN, CWOCN For non-emergent WOC Nursing patient care needs - Please place a consult via Epic under ostomy . WOC Nurse Available Hours: M-F: [phone]; Weekends & Holidays: [phone] For emergent WOC Nursing patient care needs - Page #[phone], during available hours only. [facility]03-18-2025 Miscellaneous Notes* Telephone Encounter - Angelina Feldman RN - 09/19/2024 11:46 AM EDT WOC nursing returned patient message regarding supplies. Left Message: No Information/Recommendations provided regarding - spoke with spouse who requested larger pouches andextension tubing due to high output at night. Patient currently on campus for procedure. Supplies set aside to be picked - ConvaTe 1 07/08 convex-it, drainable and high volume pouches, gravity drainage bag. After call life insurance underwriter was notified by a colleague that she had already provided supplies to spouse. Unclear if the return call above was before or after. If he returns to desk will assess needs. Time spent: 15 minutes Angelina Feldman RN, BSN, CWOCN For non-emergent WOC Nursing patient care needs - Please place a consult via Epic under ostomy . WOC Nurse Available Hours: M-F: [phone]; Weekends & Holidays: [phone] For emergent WOC Nursing patient care needs - Page #[phone], during available hours only. documented in this encounterUniversity Hospitals Geneva Medical Center03-18-2025 NoteWood County Hospital03-17-2025 NoteWood County Hospital03-17-2025 History of Present illness Narrative* Angelina Feldman RN - 09/18/2024 5:03 PM EDT ET/WOCN Nursing Consult Topic: ET/WOCN Consultation Note Outcome: Patient in clinic for visit with Obdulia SIMMS. Patient has a new loop ileostomy that was created on 08-18-24. Patient reports high volume output and is having some challenges with skinirritation. Flange aperture too large. Refit and new system used today. Samples provided as patientwas unsure which system she was interested in vs what works best. She will call back when she is ready for a new order form. Provided with: Coloplast Flex light convex red large flange, drainable and HVOP option for pouch, [place] 2 1/4 convex flange, and the ConvaTec [...] gatorade, propel Pouching System Pouching system removed: [place] New Image 2 1/4 Flat Ceraplus Flange with Tape Border #[id number], ceraplus ring, HVOP Wearing time: 3-4 days Pouching system evaluation: aperture too large, convexity needed to stabilize soft tissue Recommendations: Skin Care: Apply ConvaTec Stomahesive powder to any areas of skin breakdown PRN until healed. Dust off excess. Applied and sealed with TapClicks no sting Pouching system Applied: Hollihesive wedge from 3-9 o'clock, 1 1/4 ConvaTec PRASAD-FIT Natura Durahesive Pre-cut Skin Barrier with CONVEX-IT (#[id number]), ceraplus ring, drainable pouch, belt Expected wearing time: 3-4 days Time Increment: 1 hour Angelina Feldman, RN, BSN, CWOCN For non-emergent WO Nursing patient care needs - Please place a consult via Epic under ostomy . WOC Nurse Available Hours: M-F: [phone]; Weekends & Holidays: [phone] For emergent WO Nursing patient care needs - Page #[phone], during available hours only. documented in this encounterUniversity Hospitals Geneva Medical Center03-17-2025 NoteHNO ID: [id number] Author: ABDIRAHMAN CHRISTIE RD Service: ? Author Type: Registered Dietitian Type: Progress Notes Filed: 09/20/2024 15:43 Note Text: Abstract moved to office visit with Chantel Cottrell CNP dated 09/19/24. Abdirahman Christie RD, TA, CNSDetwiler [facility]03-17-2025 History of Present illness Narrative* Abdirahman Christie RD - 09/18/2024 4:24 PM EDT Abstract moved to office visit with Chantel Cottrell CNP dated 09/19/24. Abdirahman Christie RD, TA, [facility] documented in this encounterUniversity Hospitals Geneva Medical Center03-17-2025 History of Present illness Narrative* Obdulia Tejeda PA-C - 09/18/2024 2:00 PM EDT [facility] Post-Op Visit Francine Hobson returns [...] for DVT in right axillary vein. Vascular medicinewas consulted and their recommendations were followed. DVT [...] is asked to please follow up with DEMI Price-Jon scheduled. Bowel Stopper Regimen: Imodium 4mg before [...] complicated by DVT and readmission for DVT 09/02- 09/06/24. She is tolerating diet with an improving [...] - One lymph node, negative for neoplasm (0/1). at 1151 EST Diagnosis Comment The sections [...] by mouth two times a day. (Patient nottaking: Reported on 09/18/2024) 60 tablet 2 enoxaparin [...] stoma: red, budded, peristomal irritation Anorectal: deferred Marketing Production Coordinator present: Yes Sensitive Exam: no Assessment Assessment: [...] Urinary: discussed with Dr. Rousseau, consult to uro/research associate placed Plan: - TPN per CGRT team - Lomotil and Imodium 2 pills QID - add cholestyramine BID with meals - could consider tincture of Opium - consult uro/research associate for urinary leakage ( per Dr. Rousseau) - UA to rule out UTI - follow up with vascular medicine and hematology as scheduled - follow up with GI - follow up with Dr. Rousseau as scheduled - contact with questions/concerns Obdulia Tejeda PA-C [facility] documented in this encounterUniversity Hospitals Geneva Medical Center03-17-2025 NoteWood County Hospital03-13-2025 NoteHNO ID: [id number] Author: GHASSAN ANGULO APRN.TOWER SUPERVISOR Service: ? Author Type: Nurse Practitioner Type: Progress Notes Filed: 09/14/2024 15:45 Note Text: [facility] Interventional Radiology HPI: Francine Hobson is a 39 year old female with a PMH of Crohn's colitis with intestinal obstruction s/p end ileostomy and malnutrition with history of right-sided dual-lumen tunneled Reece catheter insertion on 09/05/24 at [facility]. She presents today for evaluation of her [...] tunneled Reece catheter insertion on 09/05/24 at [facility]. - For future concerns please call Interventional Radiology nurse triage line [phone], Wednesday - Wednesday 9 a.m. - 5 p.m. - After hours please call [phone] and ask for Interventional Radiology Fellow education trainer. - In the event of acute symptoms report directly to local emergency department and notify the Department of Intervention Radiology after the fact. I spent a total of 25 minutes on the date of the service which included preparing to see the patient, hsut-es-ldmd patient care, completing clinical documentation, and obtaining and/or reviewing separately obtained history. Ghassan Angulo APRN.[facility] Interventional Radiology extension [id number] County HospitalPntwzhuv05-61-5445 Telephone encounter Note* Telephone Encounter - Agatha Diaz LISW - 09/11/2024 4:18 PM EDT SOCIAL WORK FOLLOW UP NOTE: [facility] Date of service: 09/11/24 TOPICS ADDRESSED: community resources and GORGE requesting recommendations from JUDITH Baker pt is a hematology patient, has new [...] to community resource F/U APPOINTMENT: n/a Assigned JUDITH listed in Care Team tab: NA NIKOLAY Vicente [facility]03-10-2025 Miscellaneous Notes* Telephone Encounter - Agatha Diaz LISW - 09/11/2024 4:18 PM EDT SOCIAL WORK FOLLOW UP NOTE: [facility] Date of service: 09/11/24 TOPICS ADDRESSED: community resources and GORGE requesting recommendations from JUDITH Baker pt is a hematology patient, has new [...] to community resource F/U APPOINTMENT: n/a Assigned JUDITH listed in Care Team tab: NA NIKOLAY Vicente documented in this encounterUniversity Hospitals Geneva Medical Center03-07-2025 Telephone encounter Note * Telephone Encounter - Marie Dominguez - 09/08/2024 3:14 PM EST Called pt to confirm 3 month hospital follow up appt. Patient is concerned why she is scheduled so far out. Pt was seen by Teresa in house and has some medication questions as well. Please contactpatient to assist. [facility]03-07-2025 Miscellaneous Notes* Telephone Encounter - Marie Dominguez - 09/08/2024 3:14 PM EST Called pt to confirm 3 month hospital follow up appt. Patient is concerned why she is scheduled so far out. Pt was seen by Teresa in house and has some medication questions as well. Please contactpatient to assist. documented in this encounterUniversity Hospitals Geneva Medical Center03-05-2025 NoteHNO ID: [id number] Author: ?, ?, ? Service: ? Author Type: ? Type: Plan of Care Filed: 09/06/2024 13:05 Note Text: PHARMACY BEDSIDE DELIVERY SERVICE Patient Name: Francine Hobson The marked outpatient medications were Filled at: [facility] and delivered to the patient's bedside to [facility]- delivered to patient Medication List CHANGE how [...] them or your Primary Care Provider. Cindy Flo PAGER: [facility] bedside September 06, 2024 1:04 [facility]Vrplsaqj09-10-2891 NoteHNO ID: [id number] Author: CHRISTA DESOUZA RN Service: Care Management Author Type: Registered Nurse Type: Care Mgt Progress Note Filed: 09/06/2024 12:51 Note Text: CARE MANAGEMENT DISCHARGE NOTE SERVICE DATE: September 06, 2024 SERVICE TIME: 12:50 PM Admission Date: 09/02/2024 LOS: 4 days Discharge Arrangement Discharge Arrangement: Home with Home Health Services Arranged Medical Services: Skilled Home Health Care Type: Home Health Agency, Group Home TPN: Discharge on TPN Infusion Pharmacy Name/Phone/Fax: [facility] [employer] [phone] Home Health Care Name/Phone/Fax: [employer] [phone] Caregiver Assessment Caregiver is ready, willing and able to meet the patient's needs as recommended by the inter-professional team: No Caregiver needed Transportation Arrangements Transportation Arrangements: Car Destination: [address] [place] [address] [place] [address] Handoff Communication: Handoff to: Other Caregiver Other Caregiver Name/Phone: [facility] // [employer] [facility] : Additional Information: Patient ready for discharge. Confirmed clinical specialties received TPN prescription from NST. F2F sent to [facility]. Patient understands and awaiting ride from family. Discharge Information Row Name ED to Hosp-Admission (Current) from 09/02/[address] Home Health Care Agency [facility] Agency [facility] Phone/ SIGNATURE: Christa Desouza RN PATIENT NAME: Francine Hobson DATE: September 06, 2024 TIME: 12:50 [facility] HospitalStgptenk16-02-9836 NoteHNO ID: [id number] Author: JOSE RICE MD Service: Hospital Medicine Author Type: Physician Type: Progress Notes Filed: 09/06/2024 06:24 Note Text: Documentation Query Please clarify status of Crohn's Disease Crohn's disease, unspecified without complication This document will become part of the patient's medical record.[facility] 09-06-2024 NoteHNO ID: [id number] Author: JOSE RICE MD Service: Hospital Medicine Author Type: Physician Type: Progress Notes Filed: 09/06/2024 06:23 Note Text: Documentation Query Please clarify the patient's nutritional status Provider Response: Moderate Protein Calorie Malnutrition based on the assessment, plan, and treatment This document will become part of the patient's medical record.[facility] 09-06-2024 NoteHNO ID: [id number] Author: JOSE RICE MD Service: Hospital Medicine Author Type: Physician Type: Progress Notes Filed: 09/06/2024 06:23 Note Text: Documentation Query Please clarify type of anemia Iron Deficiency Please clarify the acuity of anemia Acute on Chronic This document will become part of the patient's medical record.[facility] 09-05-2024 NoteHNO ID: [id number] Author: JOSE RICE MD Service: Hospital Medicine Author Type: Physician Type: Progress Notes Filed: 09/05/2024 13:58 Note Text: DEPARTMENT OF HOSPITAL MEDICINE PROGRESS NOTE SERVICE DATE: 09/05/2024 SERVICE TIME: 1:57 PM Hospital Medicine/Primary Attending: Jose Rice MD NIGHT AND WEEKEND COVERAGE: [place] COVERAGE: Days: [phone], please contact via [place] Nights: - floor: please page CC Hospitalist night cover [phone] - 4W: please page CC Hospitalist night cover #[phone] - 5th floor: please page [facility] Hospitalist night cover #[phone] - SDU (17:00 - 19:00): Please page #[phone] - SDU (19:00 - 07:00): Please call [facility]-Hospital at [phone] Subjective INTERVAL HPI: Pt seen and examined. Says she feels a little better today. Denies any new acute concerns or complaint. Discussed with IR education trainer, Reece placed by IR with general anesthesia [...] and Airways Line Duration Peripheral 09/02/24 0459 [facility] Right 20 Gauge 3 days Peripheral 09/02/24 [facility] Short Left Foot 22 Gauge 3 days Central Line Double Lumen 09/04/24 0810 Tunneled Left Arm 1 day Central Line Double Lumen 09/05/24 0947 Tunneled Right Chest <1 day Drain Duration Small Bowel Ostomy 08/18/24 RLQ 17 days External Collection Device 09/02/241999 2 days Reviewed lines and needs to [...] her on Eliquis f (more content not included)...[facility] HospitalXecjyale99-92-2487 NoteHNO ID: [id number] Author: JOSE RICE MD Service: Hospital Medicine Author Type: Physician Type: Progress Notes Filed: 09/04/2024 14:12 Note Text: DEPARTMENT OF HOSPITAL MEDICINE PROGRESS NOTE SERVICE DATE: 09/04/2024 SERVICE TIME: 2:10 PM Hospital Medicine/Primary Attending: Jose Rice MD NIGHT AND WEEKEND COVERAGE: [place] COVERAGE: : , please contact via [employer]wing Nights: [phone] - floor: please page CC Hospitalist night cover [phone] - 4W: please page CC Hospitalist night cover #[phone] - 5th floor: please page CC Hospitalist night cover #[phone] - SDU (17:00 - 19:00): Please page #[phone] - SDU (19:00 - 07:00): Please call [facility]-Hospital at [phone] Subjective INTERVAL HPI: Pt seen and examined. Says she feels a little better today. Denies any new acute concerns or complaint. Discussed with IR education trainer today, Reece to be placed by IR [...] with SMOFlipid INTRAVENOUS ONCE PN (0 START) ferric gluconate 125 mg in NaCl [...] Drains, and Airways Line Duration Peripheral 09/02/24 9119 [facility] Right 20 Gauge 2 days Peripheral 09/02/24 [facility] Short Left Foot 22 Gauge 2 [...] she is discharged. - Discussed with IR education trainer today, Nixon (more content not included)...[facility] HospitalVbfwetra08-12-7354 NoteHNO ID: [id number] Author: JOSE RICE MD Service: Hospital Medicine Author Type: Physician Type: Progress Notes Filed: 09/03/2024 19:26 Note Text: DEPARTMENT OF HOSPITAL MEDICINE PROGRESS NOTE SERVICE DATE: 09/03/2024 SERVICE TIME: 7:01 PM Hospital Medicine/Primary Attending: Jose Rice MD NIGHT AND WEEKEND COVERAGE: [place] COVERAGE: Days: [phone], please contact via [employer] Nights: - 3rd floor: please page CC Hospitalist night cover [phone] - 4W: please page CC Hospitalist night cover #[phone] - 5th floor: please page CC Hospitalist night cover #[phone] - SDU (17:00 - 19:00): Please page #[phone] - SDU (19:00 - 07:00): Please call E-Hospital at [phone] Subjective INTERVAL HPI: Pt seen and examined. Says she feels a little better today. Denies any new acute concerns or complaint. Discussed with IR education trainer today, Reece to be placed by IR [...] and Airways Line Duration Peripheral 09/02/24 0459 [facility] Right 20 Gauge 1 day Peripheral 09/02/24 [facility] Short Left Foot 22 Gauge 1 [...] is discharged. - IR (more content not included)...[facility] HospitalWpueoshp95-49-3421 NoteHNO ID: [id number] Author: CECILIA WASHBURN MSW Service: Care Management Author Type: Electrical Laboratory Technician Type: Care Mgt Initial Assessment Filed: 09/03/2024 10:42 Note Text: CARE MANAGEMENT: ASSESSMENT AND DISCHARGE PLAN SERVICE DATE: September 03, 2024 SERVICE TIME: 10:24 AM PCP: No primary care provider on file. Primary Contact: Extended Emergency Contact Information Primary Emergency Contact: RUKHSANA HUGGINS Mobile Relation: Sister Secondary Emergency Contact: ValenteArthur Mobile Relation: Significant other Admission Status: Inpatient [facility] Discharge Planning requested by: Per Department Practice Potential Transition Plans Home Care, Home Care Pharmacy Advance Directives Current Advance Directive: None Contract Preparer Attempted to Assist with AD Completion: Yes [...] Current Post-Acute Service(s) Provider: [facility] [employer] for TPN, [facility] for home health Discharge Planning Patient Goal(s): General wellness [place] Explained: [place] Given: Yes Level of Care [...] Plan: Pt active with [facility], [facility] for TPN and [facility] for HHC. Patient is independent and lives at home with her son. She has ileostomy and supplies. She is active with [facility], [facility] for TPN and [facility] for HHC. Family will drive her home at DC. CM to remain available for POC and DC planning as needed. SIGNATURE: LLUVIA Leblanc PATIENT NAME: Francine Hobson DATE: September 03, 2024 TIME: 10:24 [facility] HospitalAccladwk82-50-2633 NoteHNO ID: [id number] Author: JOSE RICE MD Service: Hospital Medicine [...] TPN. Continue currrent rx and continue to monitor.[facility] HospitalSbmheouq12-91-5179 NoteHNO ID: [id number] Author: MINDI REBOLLEDO RT(R) Service: Radiology Author [...] PATIENT PRESENTS WITH AN 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: No RADIOLOGY DEPARTMENT: Ultrasound PERIPHERAL IV DATA: Not applicable SIGNED BY: RT Tobi(R) September 01, 2024 6:48 [facility]Khfeoiwd04-91-3243 Telephone encounter Note* Telephone Encounter - Darlene Solis RN - 08/31/2024 10:43 AM EST Called and talked to pt and her [...] daily. Cathflo order [facility]ed to [facility] [phone]. Also asking for extension sets for line so pt can do own care and flushing needs. Will call [facility] on that. Called [place] [facility], they said pt uses [...] ER for line needs. Darlene Solis, RN [facility]02-27-2025 Miscellaneous Notes* Telephone Encounter - Darlene Solis RN - 08/31/2024 10:43 AM EST Called and talked to pt and her [...] daily. Cathflo order faxed to [facility] [phone]. Also asking for extension sets for line so pt can do own care and flushing needs. Will call [facility] on that. Called [place] [facility], they said pt uses [...] to ER for line needs. Darlene Solis, WAQAS * Telephone Encounter - Sánchez Dubon - 08/31/2024 10:21 AM EST Spouse called to let the office know the pt has a clogged line and needs cath juaquin. They have [facility] her home care. [phone] documented in this encounterUniversity Hospitals Geneva Medical Center02-27-2025 Telephone encounter Note * Telephone Encounter - Sánchez Dubon - 08/31/2024 10:21 AM EST Spouse called to let the office know the pt has a clogged line and needs cath juaquin. They have [facility] her home care. [phone] [facility]02-26-2025 [facility]02-[facility]-20[facility]02-24-20[facility]02-[facility]-20[facility] 08-26-2024 [facility]02-[facility]-20[facility]02-[facility]-20[facility]02-[facility]-20[facility]02-19-2025 [facility]02-18-2025 Note [facility] [facility]-16-[facility]24 Telephone encounter Note* Telephone Encounter - Gloria Hobbs LPN - 08/16/2024 3:21 PM EST Images from the original note were not included. Armand Baca MD, PhD to Ga 08/16/24 3:20 PM Thank you for the updateGloria. I agree with ER referral. Very sick patient. KAY Hobbs LPN [facility]02-12-2025 Miscellaneous Notes* Telephone Encounter - Gloria Hobbs LPN - 08/16/2024 3:21 PM EST Images from the original note were not included. Armand Baca MD, PhD to Ga 08/16/24 3:20 PM Thank you for the update, Gloria. I agree with ER referral. Very sick patient. KAY Hobbs LPN * Telephone Encounter - Gloria Hobbs LPN - 08/16/2024 3:03 PM EST Received call from patient who is reporting [...] and stated she will be coming into [facility] ER. Please advise Gloria Hobbs LPN [facility] Telephone encounter Note * Telephone Encounter - Gloria Hobbs LPN - 08/16/2024 3:03 PM EST Received call from patient who is reporting [...] and stated she will be coming into [facility] ER. Please advise Gloria Hobbs LPN [facility]02-04-20[facility] Telephone encounter Note* Telephone Encounter - Gloria Hobbs LPN - 08/07/2024 2:11 PM EST Called spoke with patient who accepted 08/22/24 11:[address] Hoover in person. Patient is scheduled for the CTe 08/22/24 9:00 am. This add on clinic is not yet opened in [facility]. Patient will be added once opened. Gloria Hobbs LPN [facility]02-03-2025 Miscellaneous Notes* Telephone Encounter - Gloria Hobbs LPN - 08/07/2024 2:11 PM EST Called spoke with patient who accepted 08/22/24 11:[address] Hoover in person. Patient is scheduled for the CTe 08/22/24 9:00 am. This add on clinic is not yet opened in [facility]. Patient will be added once opened. Gloria Hobbs LPN * Telephone Encounter - Gloria Hobbs LPN - 08/04/2024 11:35 AM EST Images from the original note were not included. Armand Baca MD, PhD Gloria Hobbs LPN Hi Gloria, I didn't want to cause confusion, but she will need CBC, CMP, CRP and CTE on 08/22. Can we make a note to help coordinate. She will probably be discharged on Wednesday. Thanks, MB Orders pended to assist with scheduling CTe for 08/22/24 for follow up. Please advise Gloria Hobbs LPN documented in this encounterUniversity [facility]-03-20[facility]-20[facility]01[facility]01-[facility]25 Telephone encounter Note* Telephone Encounter - Gloria Hobbs LPN - 08/04/2024 11:35 AM EST Images from the original note were not included. Armand Baca MD, PhD Gloria Hobbs LPN Hi Gloria, I didn't want to cause confusion, but she will need CBC, CMP, CRP and CTE on 08/22. Can we make a note to help coordinate. She will probably be discharged on Wednesday. Thanks, MB Orders pended to assist with scheduling CTe for 08/22/24 for follow up. Please advise Gloria Hobbs LPN [facility]01-31-2025 [facility]01-30-[facility]01-30-2025 NoteHNO ID: [id number] Author: CAMILLA YANES RN Service: Nursing Author Type: Registered Nurse Type: Nursing Progress Note Filed: 08/03/2024 19:24 Note Text: Other: Pt refusing BGL. Pt states that she will do one at 0000 this evening. [facility]01-30-[facility]01-29-2025 [facility]01-29-2025 NoteHNO ID: [id number] Author: BRIAN JANE RN Service: Nursing Author Type: Registered Nurse Type: Progress Notes Filed: 08/02/2024 00:22 Note Text: Pt refused blood sugar checkWood County Hospital01-28-2025 [facility]01-28-2025 [facility]01-26-2025 Hospital Discharge instructions* Discharge Instructions* Dhara Shelby RN - 07/30/2024 11:23 AM [...] infectious disease doctor, and follow-up with the [facility] as soon as possible Pt instructed to return to Emergency room tomorrow if [facility] does not admit her to get IVantibiotics documented in this encounterBon [facility] History of Present illness Narrative* Dhara Shelby RN - 07/30/2024 11:00 AM EST Giving pt Iv antibiotics Pts boyfriend came in demanding to see the dr now Boyfriend stated he needs her dc so he can take her to [facility] himself. Dr Lucas perfect served and here to seept and boyfriend. Technical Maintenance Technician walked out of room when life insurance underwriter returned pts boyfriend disconnected pt fromTPN. Pt and Pts boyfriend yelling loudly at Dr and stating she needs to be dc . Dr Casiano statedto pt and boyfriend she need to make sure she was medically stable. Which included bp stable and antibiotics can be arranged for home. Retook bp 119/82 . Technical Maintenance Technician talked with Dr Grover per phone and Dr Grover stated if antibiotics can arranged for home she knows it wont happen till tomorrow because itsSunday so if pt not admitted to [place] she will have antibiotics set up for home DC systems requirements planner talked with pt and boyfriend and gave home care option. Pt agreeable to come to Er tomorrow for IV antibiotics if [facility] does not admit her and home antibiotics can not be arranged Talked with Dr Brito on phone and informed her above of Dr grover and dc systems requirements planner talking to pt. Dr Lucas stated she would dc pt. Pt given dc instructions and verbalized understanding. Pt dc by private car. And boyfriend pt left with all belongings pt left at 1157am * Jose Manuel Nicole RD - 07/30/2024 9:37 AM EST Comprehensive Nutrition Assessment Type and Reason for [...] Calf (gastrocnemius) Fluid Accumulation: No fluid accumulation Hypoid Gear Generator Strength: Not Performed Nutrition Assessment: Follow up [...] Measures: Height: 170.2 cm (5' 7.01 ) [place] Body Weight (IBW): 135 lbs (61 kg) [...] Used for Energy Requirements: Admission Energy (kcal/day): 7672-0374 kcals/day Weight Used for Protein Requirements: Admission Protein (g/day): 60-80 gm pro/day Method Used for Fluid Requirements: ml/Kg Fluid (ml/day): 35 mL/kg = 9878-4330 mL/day or per MD Nutrition Diagnosis: Severe [...] to determine Jose Manuel Nicole RD Contact: [phone] * Darlene Nagy RN - 07/30/2024 8:41 AM EST Received call from patient's Arthur CARR, wanting to talk to the floor framer. He is upset that the patient was told yesterday that the patient could leave to go another hospital and it would be adischarge, not an AMA. Technical Maintenance Technician advises Arthur that the best person for information is the primary nurse, Dhara. He asks who is responsible for the patient's discharge. Technical Maintenance Technician advises the admitting doctor is Dr. Lucas andshcurtis makes the determination if patient is safe for discharge. If the patient isn't medically stablefor discharge then Dr. Armendariz will not place a discharge order. Arthur than reports that some doctor told them yesterday that the patient could leave here and go to another ER and it wouldn't be anAMA. He further says he will be here in 2 - 2 1/2 hrs and will start disconnecting her lines. Technical Maintenance Technician advises the best thing to do is for him, the patient, and the doctor to have a discussion when he arrives. Primary nurse, Dhara, will notify DR. Armendariz when Arthur arrives for discussion. Arthur verbalizes understanding. * Dhara Shelby RN - 07/30/2024 7:37 AM EST Pt refusing lovenox shots and telemetry. And blood sugars. Pt educated on importance of above stillrefusing Dr Lucas here and notified * Darlene Nagy RN - 07/30/2024 7:26 AM EST Received call from Nurse Access- no bed available at [facility]. * Dhara Shelby RN - 07/30/2024 7:20 AM EST When doing bedside report . Pt states Im leaving after my 10am antibiotic since they do not have bed at [facility] yet. My brother and boy friend are coming to get me to take me to [facility] ER at 1030am. Dr Eller here and talked to pt and explained to pt she can not discharge herrt still needs TPN and antibiotics . She stated if they could arrange TPN and antibiotics for home she would dc her. Notified Dc systems requirements planner refer to her note. Pt states she is leaving after antibiotic is given and leaving to [facility] * Elizabeth Read RN - 07/30/2024 3:49 AM EST Patient refused accu check. Education provided patient continue to refuse. * Pita Hare RN - 07/29/2024 3:06 PM EST [facility] called to say they do not have a bed. * Nereyda Lucas MD - 07/29/2024 12:36 PM EST Images from the original note were not included. [facility] Office: [phone] Marco Delarosa DO, Dominic Gonzalez DO, Clif[place] [...] Valentin MD, Tony Valentin MD, Alix Acosta, TOWER SUPERVISOR, Shefali Hills, TOWER SUPERVISOR, Ashley Baker, TOWER SUPERVISOR, Muna Brandon, CRESENCIO, Neida Mars, TOWER SUPERVISOR, Jigna De Dios, TOWER SUPERVISOR, Angelina Peguero, TOWER SUPERVISOR, Adwoa Lei, TOWER SUPERVISOR, JOHN AsifC, JOHN TylerC, Jaz Castaneda, TOWER SUPERVISOR, Robert Huertas, TOWER SUPERVISOR, Vanessa Saleh, TOWER SUPERVISOR, Philly Mcgarry, TOWER SUPERVISOR, Josefina Higgins, TOWER SUPERVISOR, Chanel Mccullough, [facility], Ghassan Schwartz, TOWER SUPERVISOR, Lissett Root, TOWER SUPERVISOR, Lu Cooley, TOWER SUPERVISOR [facility] IN-PATIENT SERVICE [facility] Progress Note 07/29/2024 12:36 PM Name: Francine Hobson Acct: [id number] Room: [address] [place] [address] Day: 10 Admit Date: 07/19/2024 12:43 PM [...] sign consultants note reviewed Awaiting transfer to [facility] Brief History: Per documentation This is a [...] ketorolac, oxyCODONE-acetaminophen, hyoscyamine, hydrOXYzine HCl, phenol, sodium chlorideflush, sodium chloride, potassium chloride OR potassium alternative oral replacement OR potassium chloride, ondansetron OR ondansetron, acetaminophen OR acetaminophen, melatonin Data: Past Medical History: has a past medical history of Crohn disease (HCC). Social History: reports that she has quit smoking. Her smoking use included cigarettes. She has never used smokeless tobacco. She reports that she does not currently use alcohol. She reports that shedoes not currently use drugs after having used the following drugs: Marijuana (D Hanis). Family History: History reviewed. No pertinent family [...] , PHART , PH , POCPCO2 , PMP3RAN , PCO2 , POCPO2 , PO2ART , PO2 , POCHCO3 , EVX2BZX , HCO3 , NBEA , PBEA , BEART , BE , THGBART , THB , ZNI7GWL , LCIN6YZP , D1MOJEDJ , O2SAT , FIO2 Lab Results Component [...] and read back by:WAQAS De Guzman 05/04/24 0501 Radiology: XR ABDOMEN FOR NG/OG/NE TUBE PLACEMENT [...] TPN and to transfer the patient to [facility] to be evaluated by IBD GI IBD surgeon and poly operator, awaiting transfer to [facility], worsening of abdominal pain today will check x-ray abdomen Continue IV Zosyn Hypotension continue IV fluid, midodrine, monitor blood pressure, increase midodrine to 10 3 times daily and increase rateof IV fluid Symptomatic management Continue pantoprazole DVT prophylaxis IV fluid Nereyda Lucas MD 07/29/2024 12:36 PM * Jose Manuel Nicole RD - 07/29/2024 10:13 AM EST Comprehensive Nutrition Assessment Type and Reason for [...] Measures: Height: 170.2 cm (5' 7.01 ) [place] Body Weight (IBW): 135 lbs (61 kg) [...] Used for Energy Requirements: Admission Energy (kcal/day): 6450-7700 kcals/day Weight Used for Protein Requirements: Admission Protein (g/day): 60-80 gm pro/day Method Used for Fluid Requirements: ml/Kg Fluid (ml/day): 35 mL/kg = 4135-3949 mL/day or per MD Nutrition Diagnosis: Severe [...] to determine Jose Manuel Nicole RD Contact: [phone] * Manjit Grover MD - 07/29/2024 8:44 AM EST Images from the original note were not included. [facility] - Infectious diseases evaluation admission date 07/19/2024 [...] the patient to be transferred to the [facility] for considerationof surgery If the patient ends up being discharged home the plan will be to switch to IV ertapenem to completea 28-day course of therapy then CTAP - reconsiled Office f/up in [address] Grover for infection. Please call [phone] for appointment . Infection Control Recommendations [place] Precautions Contact isolation Antimicrobial Stewardship Recommendations Simplification [...] but no anti-inflammatory or biologic therapy from [facility] cern of her rectal abscess. She is planning on consultation with the [facility] but has not done so yet. [...] surgery were subsequently consulted for management. Infectious diseasewas consulted for guidance on antibiotic therapy given [...] distention. Patient voided this morning. Bed not available07/24 for transfer to [facility] for IBD specialist but still planning on transfer. BS present/hyperactive x 4, distended abdomen. 07/25 Abdominal pain after liquid [...] BIOPSY performed by Maru Maguire MD at [facility] ENDO CT ABSCESS DRAINAGE 05/03/2024 CT ABSCESS DRAIN SUBCUTANEOUS 05/03/2024 Jose Manuel Torre MD [facility] CT SCAN TONSILLECTOMY AND ADENOIDECTOMY TUMOR REMOVAL [...] occass. Drug use: Not Currently Types: Marijuana (D Hanis) Comment: occassional Sexual activity: Yes Partners: Male Other Topics Concern Not on file Social History Narrative Not on file Social Determinants of Health Financial Resource Strain: Low Risk (11/24/2022) Received from [facility] Overall Financial Resource Strain (CARDIA) Difficulty [...] file Social Connections: Unknown (06/03/2021) Received from [facility] Social Connections Frequency of Communication with Friends and Family: Not asked Frequency of Social Gatherings with Friends and Family: Not asked Intimate Partner Violence: Unknown (06/03/2021) Received from [facility] Intimate Partner Violence Fear of Current or [...] Rodas MD Office: Perfect serve / office [phone] I have discussed the care of the patient, including pertinent history and exam findings, with the resident., student or TOWER SUPERVISOR- I have seen and examined the patient and the price elements of all parts of the encounter have been performed by me. I have decided the assessment, plan and orders as documented by the resident.student or TOWER SUPERVISOR Manjit Grover, Infectious Diseases * Nena Steve RN - 07/29/2024 7:40 AM EST Received a call from [place], about the non availability of a bed for the pt at the moment. But that there's a possibility of having a bed for pt this weekend. Because there are pt scheduled to be discharged this weekend. * Nena Steve RN - 07/28/2024 10:45 PM EST Pt refused her 2200 BS check, stated that she doesn't want any needle sticks. Pt stated that she prefer BS check during lab draws. * Kayleigh Finch RD, LD - 07/28/2024 12:06 PM EST Comprehensive Nutrition Assessment Type and Reason for [...] Calf (gastrocnemius) Fluid Accumulation: No fluid accumulation Hypoid Gear Generator Strength: Not Performed Nutrition Assessment: Pt's diet downgraded to NPO with sips of water with meds. Pt reports crampy abdominal pain. +BM's yesterday. TPN/IL continues. Discussed labs with RN - K+ trending up. Additional IV fluids started yesterday d/t soft blood pressure. Weight fluctuations noted - likely due to fluids. Meds reviewed. Awaiting transfer to [facility]. Nutrition Related Findings: Hypoactive bowel sounds. LBM [...] Measures: Height: 170.2 cm (5' 7.01 ) [place] Body Weight (IBW): 135 lbs (61 kg) [...] Used for Energy Requirements: Admission Energy (kcal/day): 1603-6425 kcals/day Weight Used for Protein Requirements: Admission Protein (g/day): 60-80 gm pro/day Method Used for Fluid Requirements: ml/Kg Fluid (ml/day): 35 mL/kg = 7969-8072 mL/day or per MD Nutrition Diagnosis: Severe [...] to determine Kayleigh Finch RD, LD Contact: [phone] * Nereyda Lucas MD - 07/28/2024 10:58 AM EST Images from the original note were not included. [facility] Office: [phone] Marco Delarosa DO, Dominic Gonzalez DO, Clifton [...] Valentin MD, Tony Valentin MD, Alix Acosta, TOWER SUPERVISOR, Shefali Hills TOWER SUPERVISOR, Ashley Baker, TOWER SUPERVISOR, Muna Brandon, CRESENCIO, Neida Mars, TOWER SUPERVISOR, Jigna De Dios, TOWER SUPERVISOR, Angelina Peguero, TOWER SUPERVISOR, Adwoa Lei, TOWER SUPERVISOR, Carmen Wray PAOliviaC, Kathy Apple PAOliviaC, Jaz Castaneda, TOWER SUPERVISOR, Robert Huertas, TOWER SUPERVISOR, Vanessa Saleh, TOWER SUPERVISOR, Philly Mcgarry, TOWER SUPERVISOR, Josefina Higgins, TOWER SUPERVISOR, Chanel Mccullough, ENGLISH LECTURER, Ghassan Schwartz, TOWER SUPERVISOR, Lissett Root, TOWER SUPERVISOR, Lu Cooley, TOWER SUPERVISOR [facility] IN-PATIENT SERVICE [facility] Progress Note 07/28/2024 10:58 AM Name: Francine Hobson Acct: [id number] Room: [facility]/0243-01 IP Day: 9 Admit Date: 07/19/2024 12:43 PM PCP: Dalia Apple DO Code Status: Full Code Subjective: C/C: Chief Complaint Patient presents with Abdominal Pain Vomiting Interval History Status: not changed. Patient was seen and examined continues to report frequent of loose stool and abdominal pain, bloodpressure remains soft MAP 80 Discussed with RN at bedside Lab vital sign consultants note reviewed Awaiting transfer to [facility] Brief History: Per documentation This is a [...] not currently use alcohol. She reports that shedoes not currently use drugs after having used the following drugs: Marijuana (D Hanis). Family History: History reviewed. No pertinent family [...] , CRP , INR , DDIMER , NK1KMYXM , LABABSO in the last 72 hours. Invalid input(s): PT Chemistry: Recent Labs 07/27/24 0637 07/28/24 0812 NA 137 139 K 4.3 5.0 CL 102 105 CO2 26 27 GLUCOSE 91 90 BUN 8 10 CREATININE 0.5* 0.5* MG 2.5 2.3 ANIONGAP 9 7* LABGLOM >90 >90 CALCIUM 8.8 9.2 PHOS 4.4 4.1 No results for input(s): LABALBU , LABA1C , Q0BBTIM , FT4 , TSH , AST , ALT , LDH , GGT , ALKPHOS , BILITOT , BILIDIR , AMMONIA , AMYLASE , LIPASE , LACTATE , CHOL , HDL , CHOLHDLRATIO , TRIG , VLDL , DZI77YD , PHENYTOIN , PHENYF , URICACID , POCGLU in the last 72 hours. Invalid input(s): PROT , C2OJBLL , LABGGT , LDLCHOLESTEROL ABG:No results found for: POCPH , PHART , PH , POCPCO2 , IMJ2QJO , PCO2 , POCPO2 , PO2ART , PO2 , POCHCO3 , RKD0LOL , HCO3 , NBEA , PBEA , BEART , BE , THGBART , THB , LFA7NDS , HQEX9WGV , G3UNYCFP , O2SAT , FIO2 Lab Results Component [...] and read back by:WAQAS De Guzman 05/04/24 2000 Radiology: XR ABDOMEN FOR NG/OG/NE TUBE PLACEMENT [...] TPN and to transfer the patient to [facility] to be evaluated by IBD GI IBD surgeon and poly operator, awaiting transfer to [facility] Continue IV Zosyn Hypotension continue IV fluid, midodrine, monitor blood pressure, increase midodrine to 10 3 times daily and will increase rateof IV fluid Symptomatic management Continue pantoprazole DVT prophylaxis IV fluid Nereyda Lucas MD 07/28/2024 10:58 AM * Maru Maguire MD - 07/28/2024 10:54 AM EST [facility] Progress Note Francine Hobson is [...] lower abdominal tenderness R>L, nondistended, hypoactive and distantbowel sounds Extremities: no edema, no redness, No [...] , TIBC , IRON , FERRITIN , [id number] , FOLATE , OCCULTBLD in the last [...] with Crohn's ileocolitis s/p ileocecal resection 2005, intra- abdominal abscess 2006, recurrent partial small bowel obstruction who presents with abdominal pain, nausea and vomiting Crohn's disease complicated by stricturing, partial small bowel obstruction, and prior intra-abdominal abscesses. CT showing partial bowel obstruction and multiple fluid collections-possible abscess.Fecal Jairo Pro 2,730 Recommendations: Continue TPN NPO except for meds Awaiting transfer to [facility] where they have a dedicated IBD team including IBD GI, IBD surgeon and senior instructional designer Continue broad-spectrum antibiotics per ID discretion. Currently [...] of your patient. Isabelle Gandhi, DIONISIO - TOWER SUPERVISOR on 07/28/2024 at 10:54 AM [facility] Please note that this note was generated using a voice recognition dictation software. Although every effort was made to ensure the accuracy of this automated policy change clerk, some errors in policy change clerk may have occurred. Attested: I have discussed the care of Francine Hobson and I have examined the patient myselft and taken ros andhpi , including pertinent history and exam findings, with the author of this note . I have reviewedthe price elements of all parts of the encounter with the nurse practitioner/resident. I agree with the assessment, plan and orders as documented by the above health care provider More than 50% of the time was spent taking care of this patient in addition to the nurse practitioner time. That also included history taking follow-up physical examination and review of system. * Shayy, Nereyda Alcala MD - 07/27/2024 12:19 PM EST Images from the original note were not included. [facility] Office: [phone] Marco Delarosa DO, Dominic Gonzalez DO, Clifton [...] Baker CNP, Muna Brandon, CRESENCIO, Neida Mars, TOWER SUPERVISOR, Jigna De Dios, TOWER SUPERVISOR, Angelina Peguero, TOWER SUPERVISOR, Adwoa Lei, TOWER SUPERVISOR, Carmen Wray PA-C, Kathy Appel PA-C, Jaz Castaneda TOWER SUPERVISOR, Robert Huertas TOWER SUPERVISOR, Vanessa Saleh, TOWER SUPERVISOR, Philly Mcgarry, TOWER SUPERVISOR, Josefina Higgins, TOWER SUPERVISOR, Chanel Mccullough, ENGLISH LECTURER, Ghassan Schwartz, TOWER SUPERVISOR, Lissett Root, TOWER SUPERVISOR, Lu Cooley, TOWER SUPERVISOR [facility] IN-PATIENT SERVICE [facility] Progress Note 07/27/2024 12:19 PM Name: Francine Hobson Acct: [id number] Room: [address] [place] [address] IP Day: 8 Admit Date: 07/19/2024 12:43 PM PCP: Dalia Apple DO Code Status: Full Code Subjective: C/C: Chief Complaint Patient presents with Abdominal Pain Vomiting Interval History Status: not changed. Patient was seen and examined continues to report frequent of loose stool and abdominal pain, bloodpressure remains soft MAP 65, will increase rate of IV fluid and will increase insulin to 10 3 times daily and will continue to monitor Discussed with choker setter vital sign consultants note reviewed Awaiting transfer to [facility] Brief History: Per documentation This is a [...] not currently use alcohol. She reports that shedoes not currently use drugs after having used the following drugs: Marijuana (D Hanis). Family History: History reviewed. No pertinent family history. Vitals: BP 96/68 Pulse 53 Temp 97.7 F (36.5 C) (Oral) Resp 16 Ht 1.702 m (5' 7.01 ) Wt 48 kg (105lb 13.1 oz) LMP 07/04/2024 (Approximate) SpO2 100% [...] results for input(s): LABALBU , LABA1C , G7UQXIZ , FT4 , TSH , AST , ALT , LDH , GGT , ALKPHOS , BILITOT , BILIDIR , AMMONIA , AMYLASE , LIPASE , LACTATE , CHOL , HDL , CHOLHDLRATIO , TRIG , VLDL , LKC21HH , PHENYTOIN , PHENYF , URICACID , POCGLU in the last 72 hours. Invalid input(s): PROT , A7ZWRNF , LABGGT , LDLCHOLESTEROL ABG:No results found for: POCPH , PHART , PH , POCPCO2 , CAV0BPN , PCO2 , POCPO2 , PO2ART , PO2 , POCHCO3 , BTS5TDN , HCO3 , NBEA , PBEA , BEART , BE , THGBART , THB , XCH6ENO , CFXZ7GMW , D9OUXYGI , O2SAT , FIO2 Lab Results Component [...] and read back by:WAQAS De Guzman 05/04/24 8604 Radiology: XR ABDOMEN FOR NG/OG/NE TUBE PLACEMENT [...] TPN and to transfer the patient to [facility] to be evaluated by IBD GI IBD surgeon and poly operator, awaiting transfer to [facility] Continue IV Zosyn Hypotension continue IV fluid, midodrine, monitor blood pressure, increase midodrine to 10 3 times daily and will increase rateof IV fluid Symptomatic management Continue pantoprazole DVT prophylaxis IV fluid Nereyda Lucas MD 07/27/2024 12:19 PM * Vahe Elsy, RD - 07/27/2024 8:45 AM EST Comprehensive Nutrition Assessment Type and Reason for [...] + 250 ml lipids/day. Labs WNL. Ca++ adjustedas new lab value is WNL. MVI/trace minerals removed from new bag per protocol. RD will continue to monitor per protocol. Nutrition Related Findings: Hypoactive bowel sounds. LBM 07/25. Wound Type: None Current Nutrition Intake & Therapies: Average Meal Intake: 1-25% Average Supplements Intake: NPO PN-Adult 2-in-1 Central Line (Standard) ADULT DIET; Clear Liquid Anthropometric Measures: Height: 170.2 cm (5' 7.01 ) [place] Body Weight (IBW): 135 lbs (61 kg) [...] Used for Energy Requirements: Admission Energy (kcal/day): 2239-1154 kcals/day Weight Used for Protein Requirements: Admission Protein (g/day): 60-80 gm pro/day Method Used for Fluid Requirements: ml/Kg Fluid (ml/day): 35 mL/kg = 7394-3476 mL/day or per MD Nutrition Diagnosis: Severe [...] determine Elsy Cotter RDN, LD, MS Contact: [phone] * Hemant Katz MD - 07/27/2024 7:19 AM EST Colorectal surgery: Daily Progress Note PATIENT NAME: Francine Hobson TODAY'S DATE: 07/27/2024, 7:19 AM CC: Mild abdominal pain along with nausea SUBJECTIVE: Pt seen and examined at bedside. Patient's diet was discontinued and patient placed n.p.o. with TPN. Tolerating chips and popsicles.Afebrile, vital signs stable. No white count as of 07/23. Does not complain of any abdominal distention. Passing some amount of flatus, and had multiple liquid yesterday. Is amenable to transfer to [facility] for higher level care. Waiting on bed [...] Recommend evaluation by general surgery service at [facility], has beed accepted but waiting on bed. This has been discussed with the patient's primary team. Ashley Loyola, DO 07/27/24 General Surgery PGY [address] Katz saw and examined the patient. I have edited the above and agree with the above. Hemant Katz Colorectal Surgery * Maru Maguire MD - 07/27/2024 5:59 AM EST [facility] Gastroenterology Progress Note Francine Hobson is a 38 y.o. female patient. Hospitalization Day:8 Chief consult reason: History of Crohn's disease Severe abdominal pain Partial small bowel obstruction on CT scan Abdominal abscesses Subjective: Patient seen and examined. Patient reports overall doing well. Continues to have crampyabdominal pain. Having several small bowel movements. Objective: [...] lower abdominal tenderness R>L, nondistended, hypoactive and distantbowel sounds Extremities: no edema, no redness, No [...] , TIBC , IRON , FERRITIN , [id number] , FOLATE , OCCULTBLD in the last [...] with Crohn's ileocolitis s/p ileocecal resection 2005, intra- abdominal abscess 2005, recurrent partial small bowel obstruction who presents with abdominal pain, nausea and vomiting Crohn's disease complicated by stricturing, partial small bowel obstruction, and prior intra-abdominal abscesses. CT showing partial bowel obstruction and multiple fluid collections-possible abscess.Fecal Jairo Pro 2,730 Recommendations: Continue TPN NPO except for meds, ice chips and popsicles Awaiting transfer to [facility] where they have a dedicated IBD team including IBD GI, IBD surgeon and senior instructional designer Continue broad-spectrum antibiotics per ID discretion. Currently on Zosyn Levsin 0.25 mg IV Q 6 hrs PRN Plans for transfer to [facility] initiated by Dr Valentin 07/22/2024. Time spent [...] of your patient. Isabelle Gandhi, DIONISIO - TOWER SUPERVISOR on 07/27/2024 at 5:59 AM [facility] Please note that this note was generated using a voice recognition dictation software. Although every effort was made to ensure the accuracy of this automated policy change clerk, some errors in policy change clerk may have occurred. Attested: I have discussed the care of Francine Hobson and I have examined the patient myselft and taken ros andhpi , including pertinent history and exam findings, with the author of this note . I have reviewedthe price elements of all parts of the [...] follow-up physical examination and review of system. * Nereyda Lucas MD - 07/26/2024 11:01 AM EST Images from the original note were not included. [facility] Office: [phone] Marco Delarosa DO, Dominic Gonzalez, DO, Clifton Blanc, DO, Froylan Snowden, DO, Paula Jensen MD, Radha Greer [...] Valentin MD, Tony Valentin MD, Alix Acosta, TOWER SUPERVISOR, Shefali Hills, TOWER SUPERVISOR, Ashley Baker, TOWER SUPERVISOR, Muna Brandon, DNP, Neida Mars, TOWER SUPERVISOR, Jigna De Dios, TOWER SUPERVISOR, Angelina Peguero, TOWER SUPERVISOR, Adwoa Lei, TOWER SUPERVISOR, Carmen Wray, PA-C, Kathy Apple, PA-C, Jaz Castaneda, TOWER SUPERVISOR, Robert Huertas, TOWER SUPERVISOR, Vanessa Saleh, TOWER SUPERVISOR, Philly Mcgarry, TOWER SUPERVISOR, Josefina Higgins, TOWER SUPERVISOR, Chanel Mccullough, ENGLISH LECTURER, Ghassan Schwartz TOWER SUPERVISOR, Lissett Root, TOWER SUPERVISOR, Lu Cooley, TOWER SUPERVISOR [facility] IN-PATIENT SERVICE [facility] Progress Note 07/26/2024 11:01 AM Name: Francine Hobson Acct: [id number] Room: 0243/0243-01 Day: 7 Admit Date: 07/19/2024 12:43 PM PCP: Dalia Apple DO Code Status: Full Code Subjective: C/C: Chief Complaint Patient presents with Abdominal Pain Vomiting Interval History Status: not changed. Seen and examined, continue reports abdominal pain and loose stool, had 4 bowel movements yesterdayand 1 loose stool today morning Lab vital sign consultants note reviewed Awaiting transfer to [facility] Brief History: Per documentation This is a [...] not currently use alcohol. She reports that shedoes not currently use drugs after having used the following drugs: Marijuana (D Hanis). Family History: History reviewed. No pertinent family history. Vitals: BP 91/61 Pulse 67 Temp 97.6 F (36.4 C) (Oral) Resp 15 Ht 1.702 m (5' 7.01 ) Wt 48.1 kg (106 lb 0.7 oz) LMP 07/04/2024 (Approximate) SpO2 98% BMI 16.60 kg/m Temp (24hrs), Av F (36.7 C), Min:97.6 F (36.4 C), Max:98.2 F (36.8 C) Recent Labs 07/23/24 23007/24/24 0502 POCGLU 114* 107* I/O (24Hr): Intake/Output [...] 8.3* PHOS 3.4 3.4 Recent Labs 07/23/24 2303 07/24/24 0502 POCGLU 114* 107* ABG:No results found for: POCPH , PHART , PH , POCPCO2 , JML8WWH , PCO2 , POCPO2 , PO2ART , PO2 , POCHCO3 , FXY5AQV , HCO3 , NBEA , PBEA , BEART , BE , THGBART , THB , HEV1NWF , PCCL6VHS , G1OIWUWP , O2SAT , FIO2 Lab Results Component [...] TPN and to transfer the patient to [facility] to be evaluated by IBD GI IBD surgeon and poly operator, awaiting transfer to [facility] Continue IV Zosyn Hypotension continue IV fluid, start midodrine, monitor blood pressure Symptomatic management Continue pantoprazole DVT prophylaxis IV fluid Nereyda Lucas MD 07/26/2024 11:01 AM * Kayleigh Finch RD, LD - 07/26/2024 10:49 AM EST Comprehensive Nutrition Assessment Type and Reason for [...] Calf (gastrocnemius) Fluid Accumulation: No fluid accumulation Hypoid Gear Generator Strength: Not Performed Nutrition Assessment: TPN/IL continues. No new labs available today. Pt remains NPO, allowed only sips with meds. Reportscontinued abdominal pain. Noted planning for transfer to [facility] as bed available. Meds reviewed: Zofran PRN. Nutrition Related Findings: Hypoactive bowel sounds. LBM [...] Measures: Height: 170.2 cm (5' 7.01 ) [place] Body Weight (IBW): 135 lbs (61 kg) [...] Used for Energy Requirements: Admission Energy (kcal/day): 4060-1591 kcals/day Weight Used for Protein Requirements: Admission Protein (g/day): 60-80 gm pro/day Method Used for Fluid Requirements: ml/Kg Fluid (ml/day): 35 mL/kg = 8614-8671 mL/day or per MD Nutrition Diagnosis: Severe [...] Parenteral Nutrition Kayleigh Finch RD, TA Contact: [phone] * Vick Owens MD - 07/26/2024 8:37 AM EST Images from the original note [...] the patient to be transferred to the [facility] for considerationof surgery If the patient ends up being discharged home the plan will be to switch to IV ertapenem to completea 28-day course of therapy Office f/up in [address] Grover for infection. Please call [phone] for appointment . Infection Control Recommendations: [place] Precautions Contact isolation Discharge Planning: Estimated Length [...] Component Value Units Date/Time Gastrointestinal Panel, Molecular [[id number]] Collected: 07/22/24 1259 Order Status: Completed Specimen: Stool Updated: 07/23/24 0916 Specimen Description .FECES Campylobacter PCR NEGATIVE: No [...] PCR NEGATIVE: No Enterotoxigenic E. coli (ETEC) Heat- labile and heat-stable (LT/ST) DNA Detected Yersinia Enterocolitica [...] Daily enoxaparin 40 mg SubCUTAneous Daily Paul Huggins Medical Student I have discussed the care [...] on medical decision making for this patient. Askem * Hemant Katz MD - 07/26/2024 7:58 AM EST Colorectal surgery: Daily Progress Note PATIENT NAME: [...] this morning. Is amenable to transfer to [facility] for higher level care. Waiting on bed availability. OBJECTIVE: VITALS: BP 97/73 Pulse 74 Temp 97.6 F (36.4 C) (Oral) Resp 14 Ht 1.702 m (5' 7.01 ) Wt 48.1 kg (106 lb 0.7 oz) LMP 07/04/2024 (Approximate) SpO2 100% BMI 16.60 kg/m INTAKE/OUTPUT: No intake or output data in the 24 hours ending 07/26/241817 PHYSICAL EXAM: Physical Exam Vitals reviewed. Constitutional: [...] Recommend evaluation by general surgery service at [facility], has beed accepted but waiting on bed. This has been discussed with the patient's primary team. Ashley Loyola, 07/26/24 General Surgery PGY [address] Katz saw and examined the patient. I have edited the above and agree with the above. Hemant Katz Colorectal Surgery * Maru Maguire MD - 07/26/2024 7:30 AM EST [facility] Gastroenterology Progress Note Francine Hobson is a [...] lower abdominal tenderness R>L, nondistended, hypoactive and distantbowel sounds Extremities: no edema, no redness, No [...] , TIBC , IRON , FERRITIN , [id number] , FOLATE , OCCULTBLD in the last [...] with Crohn's ileocolitis s/p ileocecal resection 2005, intra- abdominal abscess 2005, recurrent partial small bowel obstruction who presents with abdominal pain, nausea and vomiting Crohn's disease complicated by stricturing, partial small bowel obstruction, and prior intra-abdominal abscesses. CT showing partial bowel obstruction and multiple fluid collections-possible abscess.Fecal Jairo Pro 2,730 Recommendations: Recommend TPN NPO except for meds, ice chips and popsicles Awaiting transfer to [facility] where they have a dedicated IBD team including IBD GI, IBD surgeon and senior instructional designer Continue broad-spectrum antibiotics per ID discretion. Currently [...] the care of your patient. Isabelle Gandhi, SEAM PRESS OPERATOR - TOWER SUPERVISOR on 07/26/2024 at 7:30 AM [facility] Please note that this note was generated using a voice recognition dictation software. Although every effort was made to ensure the accuracy of this automated policy change clerk, some errors in policy change clerk may have occurred. Attested: I have discussed the care of Francine Hobson and I have examined the patient myselft and taken ros andhpi , including pertinent history and exam findings, with the author of this note . I have reviewedthe price elements of all parts of the encounter with the nurse practitioner/resident. I agree with the assessment, plan and orders as documented by the above health care provider More than 50% of the time was spent taking care of this patient in addition to the nurse practitioner time. That also included history taking follow-up physical examination and review of system. * Nereyda Lucas MD - 07/25/2024 12:37 PM EST Images from the original note were not included. [facility] Office: [phone] Marco Delarosa DO, Dominic Gonzalez DO, Clifton [...] Valentin MD, Tony Valentin MD, Alix Acosta, TOWER SUPERVISOR, Shefali Hills, TOWER SUPERVISOR, Ashley Baker, TOWER SUPERVISOR, Muna Brandon, [facility], Neida Mars, TOWER SUPERVISOR, Jigna De Dios, TOWER SUPERVISOR, Angelina Peguero, TOWER SUPERVISOR, Adwoa Lei, TOWER SUPERVISOR, Carmen Wray, PA-C, Kathy Apple, PA-C, Jaz Castaneda, TOWER SUPERVISOR, Robert Huertas, TOWER SUPERVISOR, Vanessa Saleh, TOWER SUPERVISOR, Philly Mcgarry, TOWER SUPERVISOR, Josefina Higgins, TOWER SUPERVISOR, Chanel Mccullough, ENGLISH LECTURER, Ghassan Schwartz, TOWER SUPERVISOR, Lissett Root, TOWER SUPERVISOR, Lu Cooley, TOWER SUPERVISOR [facility] IN-PATIENT SERVICE [facility] Progress Note 07/25/2024 12:37 PM Name: Francine Hobson Acct: [id number] Room: 0243/0243-01 IP Day: 6 Admit Date: 07/19/2024 12:43 [...] sign consultants note reviewed Awaiting transfer to [facility] Brief History: Per documentation This is a [...] not currently use alcohol. She reports that shedoes not currently use drugs after having used the following drugs: Marijuana (D Hanis). Family History: History reviewed. No pertinent family history. Vitals: BP (!) 86/57 Pulse 68 Temp 98.1 F (36.7 C) (Oral) Resp 15 Ht 1.702 m (5' 7.01 ) Wt 48.1 kg (106 lb 0.7 oz) LMP 07/04/2024 (Approximate) SpO2 94% BMI 16.60 kg/m Temp (24hrs), Av.2 F (36.8 C), Min:97.9 F (36.6 C), Max:98.6 F (37 C) Recent Labs 07/23/24 2303 07/24/24 0502 POCGLU 114* 107* I/O (24Hr): Intake/Output Summary (Last 24 hours) at 07/25/2024 1237 Last data filed at 07/25/2024 1205 Gross per 24 hour Intake 560 ml Output -- Net 560 ml Labs: Hematology: Recent Labs 07/23/24 0627 07/24/24 1512 WBC 4.9 4.9 RBC 4.15 3.77* HGB 11.6* 10.4* HCT 38.1 32.6* MCV 91.8 86.5 MCH 28.0 27.6 MCHC 30.4 31.9 RDW 15.7* 15.9* PLT 177 219 MPV 9.9 9.7 Chemistry: Recent Labs 07/22/24 1754 07/23/24 0627 07/24/24 0500 07/25/24 0808 NA -- 137 140 140 K -- 3.8 3.6* 3.8 CL -- 107 107 106 CO2 -- 27 GLUCOSE -- 86 108* 109* BUN -- <2* <2* 5* CREATININE -- 0.4* 0.5* 0.4* MG -- 2.0 1.9 2.1 ANIONGAP -- 12 8* 7* LABGLOM -- >90 >90 >90 CALCIUM -- 8.4* 8.6 8.3* PHOS -- 2.9 3.4 3.4 LACTACIDWB 1.0 -- -- -- Recent Labs 07/23/24 0627 07/23/24 2303 07/24/24 0502 AST 16 -- -- ALT <5* -- -- ALKPHOS 64 -- -- BILITOT 0.2 -- -- BILIDIR <0.1 -- -- TRIG 124 -- -- POCGLU -- 114* 107* ABG:No results found for: POCPH , PHART , PH , POCPCO2 , VQS4HUM , PCO2 , POCPO2 , PO2ART , PO2 , POCHCO3 , KAT2XUP , HCO3 , NBEA , PBEA , BEART , BE , THGBART , THB , DUH6HXJ , DSYG7GCS , W1JAVOTG , O2SAT , FIO2 Lab Results Component [...] and read back by:WAQAS De Guzman 05/04/24 2119 Radiology: XR ABDOMEN FOR NG/OG/NE TUBE PLACEMENT [...] TPN and to transfer the patient to [facility] to be evaluated by IBD GI IBD surgeon and poly operator, awaiting transfer to [facility] Continue IV Zosyn Hypotension continue IV fluid, start midodrine, monitor blood pressure Symptomatic management Continue pantoprazole DVT prophylaxis IV fluid Nereyda Lucas MD 07/25/2024 12:37 PM * Kayleigh Finch, DENISE, LD - 07/25/2024 10:42 AM EST Comprehensive Nutrition Assessment Type and Reason for Visit: Reassess Nutrition Recommendations/Plan: Continue custom TPN. In next bag, increase Dextrose to 200 gm, and AA to 80 gm; increase Ca; removeMVI/trace minerals. Continue 250 mL IV lipids. Will [...] Calf (gastrocnemius) Fluid Accumulation: No fluid accumulation Hypoid Gear Generator Strength: Not Performed Nutrition Assessment: TPN/IL continues. Labs reviewed - Ca 8.3 mg/dL. Pt remains NPO with sips of water with meds. Pt reports abdominal pain continues but was worse with food (reports was given meal tray with eggs on accident over the weekend). Discussed with RN. Noted planning for transfer to [facility] as bed available. Meds reviewed: Antibiotics, Zofran [...] Measures: Height: 170.2 cm (5' 7.01 ) [place] Body Weight (IBW): 135 lbs (61 kg) [...] Used for Energy Requirements: Admission Energy (kcal/day): 6225-2200 kcals/day Weight Used for Protein Requirements: Admission Protein (g/day): 60-80 gm pro/day Method Used for Fluid Requirements: ml/Kg Fluid (ml/day): 35 mL/kg = 3337-9647 mL/day or per MD Nutrition Diagnosis: Severe [...] to determine Kayleigh Finch RD, LD Contact: [phone] * Vick Owens MD - 07/25/2024 10:14 AM EST [facility] - Progress Note Today's Date and Time: [...] the patient to be transferred to the [facility] for considerationof surgery If the patient ends up being discharged home the plan will be to switch to IV ertapenem to completea 28-day course of therapy Office f/up in [address] Grover for infection. Please call [phone] for appointment . Medical Decision Making/Summary/Discussion:07/25/2024 IR - abscess not accessible Disc w [...] [facility], d/c with primary Infection Control Recommendations [place] Precautions Contact isolation Antimicrobial Stewardship Recommendations Simplification [...] She is planning on consultation with the [facility] but has not done so yet. [...] surgery were subsequently consulted for management. Infectious diseasewas consulted for guidance on antibiotic therapy given [...] distention. Patient voided this morning. Bed not available07/24 for transfer to [facility] for IBD specialist but still planning on transfer. BS present/hyperactive x 4, distended abdomen. 07/25 Abdominal pain after liquid [...] BIOPSY performed by Maru Maguire MD at [facility] ENDO CT ABSCESS DRAINAGE 05/03/2024 CT ABSCESS DRAIN SUBCUTANEOUS 05/03/2024 Jose Manuel Torre MD [facility] CT SCAN TONSILLECTOMY AND ADENOIDECTOMY TUMOR REMOVAL [...] occass. Drug use: Not Currently Types: Marijuana (D Hanis) Comment: occassional Sexual activity: Yes Partners: Male Other Topics Concern Not on file Social History Narrative Not on file Social Determinants of Health Financial Resource Strain: Low Risk (11/24/2022) Received from [facility] Overall Financial Resource Strain (CARDIA) Difficulty [...] file Social Connections: Unknown (06/03/2021) Received from [facility] Frequency of Communication with Friends and Family: Not asked Frequency of Social Gatherings with Friends and Family: Not asked Intimate Partner Violence: Unknown (06/03/2021) Received from [facility] Intimate Partner Violence Fear of Current or [...] in size. Pancreas: No pancreatic ductal dilation. Nodiscrete pancreatic parenchymal lesion. Adrenal Glands: Normal morphology. [...] the right lower quadrant. Moderate volume of unorganizedfree fluid more anteriorly in the pelvis. Aorta/IVC: [...] also noted in the pelvis. Medical Decision Dpvrjv-Torecalm-Hqbzb: Results Procedure Component Value Units Date/Time Gastrointestinal Panel, Molecular [[id number]] Collected: 07/22/24 1259 Order Status: Completed Specimen: Stool Updated: 07/23/24 0970 Specimen Description .FECES Campylobacter PCR NEGATIVE: No [...] PCR NEGATIVE: No Enterotoxigenic E. coli (ETEC) Heat- labile and heat-stable (LT/ST) DNA Detected Yersinia Enterocolitica PCR NEGATIVE: No Yersinia enterocolitica DNA Detected Paul Joseluis Medical student I have discussed the care [...] on medical decision making for this patient. Askem * Hemant Katz MD - 07/25/2024 8:23 AM EST Colorectal surgery: Daily Progress Note PATIENT NAME: Francine Hobson TODAY'S DATE: 07/25/2024, 2:15 PM CC: Mild abdominal pain along with nausea SUBJECTIVE: Pt seen and examined at bedside. Patient's diet was discontinued and patient placed n.p.o. secondary to nausea yesterday. ContinuingTPN. Afebrile, vital signs stable. No white count as of 07/23. Does not complain of any abdominal distention. Passing some amount of flatus, and had multiple liquid yesterday and this morning. Is amenable to transfer to [facility] for higher level care. OBJECTIVE: VITALS: BP [...] Recommend evaluation by general surgery service at [facility]. This has been discussed with the patient's primary team. Ashley Loyola DO 07/25/24 2:15 PM General Surgery PGY [address] Katz saw and examined the patient. I have edited the above and agree with the above. Hemant Katz Colorectal Surgery * Maru Maguire MD - 07/25/2024 6:07 AM EST [facility]enter[facility] Progress Note Francine Hobson is a [...] F (36.6 C) Min: 97.9 F (36.6 C)Max: 97.9 F (36.6 C) Physical Assessment: General appearance: alert, cooperative and no distress Mental Status: oriented to person, place and time and normal affect Lungs: clear to auscultation bilaterally, normal effort Heart: regular rate and rhythm, no murmur Abdomen: soft, mild diffuse lower abdominal tenderness R>L, nondistended, hypoactive and distantbowel sounds Extremities: no edema, no redness, No [...] sodium chloride flush, sodium chloride, potassium chloride ORpotassium alternative oral replacement OR potassium chloride, ondansetron OR ondansetron, acetaminophen OR acetaminophen, melatonin, HYDROmorphone Data Review: LABS and IMAGING: CBC Recent Labs 01/62607/24/24 1512 WBC 4.9 4.9 HGB 11.6* 10.4* HCT 38.1 32.6* MCV 91.8 86.5 MCHC 30.4 31.9 RDW 15.7* 15.9* PLT 177 219 Immature PLTs No results found for: PLTFLUORE PT/INR No results for input(s): PROTIME , INR in the last 72 hours. ANEMIA STUDIES No results for input(s): IRONPERSAT , TIBC , IRON , FERRITIN , [id number] , FOLATE , OCCULTBLD in the last 72 hours. BMP Recent Labs 07/23/2462607/24/24 0500 NA 137 140 K 3.8 3.6* CL 107 107 CO2 18* 25 BUN <2* <2* CREATININE 0.4* 0.5* GLUCOSE 86 108* CALCIUM 8.4* 8.6 MG 2.0 1.9 LFTS Recent Labs 07/23/24626 ALKPHOS 64 ALT <5* AST 16 BILITOT [...] with Crohn's ileocolitis s/p ileocecal resection 2005, intra- abdominal abscess 2005, recurrent partial small bowel obstruction who presents with abdominal pain, nausea and vomiting Crohn's disease complicated by stricturing, partial small bowel obstruction, and prior intra-abdominal abscesses. CT showing partial bowel obstruction and multiple fluid collections-possible abscess Recommendations: Recommend TPN NPO except for meds. NO ice chips or popsicles Recommend transfer to [facility] where they have a dedicated IBD team including IBD GI, IBD surgeon and senior instructional designer Continue broad-spectrum antibiotics per ID discretion. Currently [...] in the care of your patient. Isabelle Gandhi APRN - TOWER SUPERVISOR on 07/25/2024 at 6:07 AM [facility] Please note that this note was generated using a voice recognition dictation software. Although every effort was made to ensure the accuracy of this automated policy change clerk, some errors in policy change clerk may have occurred. Attested: I have discussed the care of Francine Hobson and I have examined the patient myselft and taken ros andhpi , including pertinent history and exam findings, with the author of this note . I have reviewedthe price elements of all parts of the encounter with the nurse practitioner/resident. I agree with the assessment, plan and orders as documented by the above health care provider More than 50% of the time was spent taking care of this patient in addition to the nurse practitioner time. That also included history taking follow-up physical examination and review of system. * Maru Maguire MD - 07/24/2024 2:29 PM EST [facility] G[facility] Progress Note Francine Hobson is a 38 y.o. female patient. Hospitalization Day:5 Chief consult reason: History of Crohn's disease Severe abdominal pain Partial small bowel obstruction on CT scan Abdominal abscesses Subjective: Patient seen and examined. Patient continues to report crampy abdominal pain as well asright lower quadrant abdominal pain. No nausea or [...] lower abdominal tenderness R>L, nondistended, hypoactive and distantbowel sounds Extremities: no edema, no redness, No [...] sodium chloride flush, sodium chloride, potassium chloride ORpotassium alternative oral replacement OR potassium chloride, ondansetron [...] , TIBC , IRON , FERRITIN , [id number] , FOLATE , OCCULTBLD in the last 72 hours. BMP Recent Labs 07/22/2423807/23/2462607/24/24 0500 NA 135* 137 140 K 4.6 3.8 3.6* CL 107 107 107 CO2 14* 18* 25 BUN <2* <2* <2* CREATININE 0.5* 0.4* 0.5* GLUCOSE 72* 86 108* CALCIUM 8.7 8.4* 8.6 MG -- 2.0 1.9 LFTS Recent Labs 07/22/2423807/23/24 06 ALKPHOS 72 64 ALT <5* <5* AST [...] with Crohn's ileocolitis s/p ileocecal resection 2005, intra- abdominal abscess 2005, recurrent partial small bowel obstruction who presents with abdominal pain, nausea and vomiting Crohn's disease complicated by stricturing, partial small bowel obstruction, and prior intra-abdominal abscesses. CT showing partial bowel obstruction and multiple fluid collections-possible abscess Recommendations: Recommend TPN NPO except for meds. NO ice chips or popsicles Recommend transfer to [facility] where they have a dedicated IBD team including IBD GI, IBD surgeon and senior instructional designer Continue broad-spectrum antibiotics per ID discretion. Currently [...] of your patient. Isabelle Gandhi, DIONISIO - TOWER SUPERVISOR on 07/24/2024 at 2:29 PM [facility] Please note that this note was generated using a voice recognition dictation software. Although every effort was made to ensure the accuracy of this automated policy change clerk, some errors in policy change clerk may have occurred. Attested: I have discussed the care of Francine Hobson and I have examined the patient myselft and taken ros andhpi , including pertinent history and exam findings, with the author of this note . I have reviewedthe price elements of all parts of the encounter with the nurse practitioner/resident. I agree with the assessment, plan and orders as documented by the above health care provider More than 50% of the time was spent taking care of this patient in addition to the nurse practitioner time. That also included history taking follow-up physical examination and review of system. * Kayleigh Finch RD, LD - 07/24/2024 10:08 AM EST Comprehensive Nutrition Assessment Type and Reason for [...] Malnutrition Assessment: Malnutrition Status: Severe malnutrition (07/21/24 5455) Context: Chronic Illness Findings of the 6 clinical characteristics of malnutrition: Energy Intake: 75% or less estimated energy requirements for 1 month or longer Weight Loss: Mild weight loss Body Fat Loss: Mild body fat loss Orbital, Buccal region Muscle Mass Loss: Severe muscle mass loss Clavicles (pectoralis & deltoids), Hand (interosseous), Calf (gastrocnemius) Fluid Accumulation: No fluid accumulation Hypoid Gear Generator Strength: Not Performed Nutrition Assessment: TPN/IL continues. Discussed with RN. Labs reviewed - K 3.6 mmol/L. Pt remains on clear liquid diet - taking some liquids. Pt having watery BM's. Weight fluctuations noted. Meds include: Robosn PRN. Noted discussion of plans for transfer to [facility]. Nutrition Related Findings: No edema. Watery BM's [...] Measures: Height: 170.2 cm (5' 7.01 ) [place] Body Weight (IBW): 135 lbs (61 kg) [...] Used for Energy Requirements: Admission Energy (kcal/day): 5641-0029 kcals/day Weight Used for Protein Requirements: Admission Protein (g/day): 60-80 gm pro/day Method Used for Fluid Requirements: ml/Kg Fluid (ml/day): 35 mL/kg = 0185-3836 mL/day or per MD Nutrition Diagnosis: Severe [...] to determine Kayleigh Finch RD, LD Contact: [phone] * Dianne Agudelo MD - 07/24/2024 8:13 AM EST Images from the original note were not included. [facility] Office: [phone] Marco Delarosa DO, Dominic Gonzalez DO, Clifton [...] MD, Shahid Reddy MD, Ashley Schaffer DO, Cruztio Holloway MD, Eloy Valentin MD, Tony Valentin MD, Alix Acosta, TOWER SUPERVISOR, Shefali Hills TOWER SUPERVISOR, Ashley Baker, TOWER SUPERVISOR, Muna Brandon, CRESENCIO, Neida Mars, TOWER SUPERVISOR, Jigna De Dios, TOWER SUPERVISOR, Angelina Peguero, TOWER SUPERVISOR, Adwoa Lei, TOWER SUPERVISOR, JOHN AsifC, JOHN TylerC, Jaz Castaneda, TOWER SUPERVISOR, Robert Huertas, TOWER SUPERVISOR, Vanessa Saleh, TOWER SUPERVISOR, Philly Mcgarry, TOWER SUPERVISOR, Josefina Higgins, TOWER SUPERVISOR, Chanel Mccullough, [facility], Ghassan Schwartz, TOWER SUPERVISOR, Lissett Root CNP, Lu Cooley, TOWER SUPERVISOR [facility] IN-PATIENT SERVICE [facility] Progress Note 07/24/2024 8:13 AM Name: Francine Hobson Acct: [id number] Room: [address] [place] [address]-[facility] Day: 5 Admit Date: 07/19/2024 12:43 PM PCP: Dalia Apple DO Code Status: Full Code Subjective: C/C: Chief Complaint Patient presents with Abdominal Pain Vomiting Interval History Status: improved. Seen and examined Patient was started on clear liquid Per patient she is able to take it She had some nausea and Zofran was given Currently waiting on transfer to [facility] Blood pressure is soft Is on IV [...] not currently use alcohol. She reports that shedoes not currently use drugs after having used the following drugs: Marijuana (D Hanis). Family History: History reviewed. No pertinent family [...] Net 1950 ml Labs: Hematology: Recent Labs 07/22/24 0239 07/23/24 0627 WBC 5.5 4.9 RBC 4.29 4.15 HGB 11.8* 11.6* HCT 39.4 38.1 MCV 91.8 91.8 MCH 27.5 28.0 MCHC 29.9 30.4 RDW 15.4* 15.7* PLT 294 177 MPV 9.4 9.9 Chemistry: Recent Labs 07/22/24 0239 07/22/24 0850 07/22/24 1754 07/23/24 0627 07/24/24 0500 [...] 1.0 1.0 -- -- Recent Labs 07/22/24 0239 07/23/24 0627 07/23/24 2303 07/24/24 0502 AST 15 16 -- -- ALT <5* <5* -- -- ALKPHOS 72 64 -- -- BILITOT 0.2 0.2 -- -- BILIDIR -- <0.1 -- -- TRIG -- 124 -- -- POCGLU -- -- 114* 107* ABG:No results found for: POCPH , PHART , PH , POCPCO2 , RBF3UTV , PCO2 , POCPO2 , PO2ART , PO2 , POCHCO3 , MON7PAE , HCO3 , NBEA , PBEA , BEART , BE , THGBART , THB , SQN6XEW , FVJK5JQO , P5DBSUEM , O2SAT , FIO2 Lab Results Component [...] tolerated Antibiotic per ID Pending transfer to [facility] Dietitian on board for severe protein malnutrition Continue with PT OT Dianne Agudelo MD 07/24/2024 8:13 AM * Vick Owens MD - 07/24/2024 7:45 AM EST [facility] - Progress Note Today's Date and Time: [...] when ready for home to complete a 28- day course of therapy Office f/up in [address] Grover for infection. Please call [phone] for appointment . There are current plans for the patient to be transferred to the [facility] for considerationof surgery Medical Decision Making/Summary/Discussion:07/24/2024 IR - abscess not accessible Disc w [...] [facility], d/c with primary Infection Control Recommendations [place] Precautions Contact isolation Antimicrobial Stewardship Recommendations Simplification [...] She is planning on consultation with the [facility] but has not done so yet. [...] surgery were subsequently consulted for management. Infectious diseasewas consulted for guidance on antibiotic therapy given [...] distention. Patient voided this morning. Bed not available07/24 for transfer to [facility] for IBD specialist but still planning on transfer. BS present/hyperactive x 4, distended abdomen. CURRENT EVALUATION 07/24/2024 BP 110/82 [...] BIOPSY performed by Maru Maguire MD at [facility] ENDO CT ABSCESS DRAINAGE 05/03/2024 CT ABSCESS DRAIN SUBCUTANEOUS 05/03/2024 Jose Manuel Torre MD [facility] CT SCAN TONSILLECTOMY AND ADENOIDECTOMY TUMOR REMOVAL [...] occass. Drug use: Not Currently Types: Marijuana (D Hanis) Comment: occassional Sexual activity: Yes Partners: Male Other Topics Concern Not on file Social History Narrative Not on file Social Determinants of Health Financial Resource Strain: Low Risk (11/24/2022) Received from [facility] Overall Financial Resource Strain (CARDIA) Difficulty [...] file Social Connections: Unknown (06/03/2021) Received from [facility] Social Connections Frequency of Communication with Friends and Family: Not asked Frequency of Social Gatherings with Friends and Family: Not asked Intimate Partner Violence: Unknown (06/03/2021) Received from [facility] Intimate Partner Violence Fear of Current or [...] CBC with Differential: Recent Labs 07/22/24 0239 07/23/24 0627 WBC 5.5 4.9 HGB 11.8* 11.6* HCT 39.4 38.1 PLT 294 177 LYMPHOPCT 14* -- MONOPCT 8 -- EOSPCT 3 -- BMP: Recent Labs 07/23/24 0627 07/24/24 0500 NA 137 140 K 3.8 3.6* CL 107 107 CO2 18* 25 BUN <2* <2* CREATININE 0.4* 0.5* MG 2.0 1.9 Hepatic Function Panel: Recent Labs 07/22/24 0239 07/23/24 0627 BILIDIR -- <0.1 IBILI -- Can not [...] in size. Pancreas: No pancreatic ductal dilation. Nodiscrete pancreatic parenchymal lesion. Adrenal Glands: Normal morphology. [...] the right lower quadrant. Moderate volume of unorganizedfree fluid more anteriorly in the pelvis. Aorta/IVC: [...] also noted in the pelvis. Medical Decision Footan-Nuatdpqr-Xsdyx: Results Procedure Component Value Units Date/Time Gastrointestinal Panel, Molecular [[id number]] Collected: 07/22/24 1259 Order Status: Completed Specimen: Stool Updated: 07/23/2482 Specimen Description .FECES Campylobacter PCR NEGATIVE: No [...] PCR NEGATIVE: No Enterotoxigenic E. coli (ETEC) Heat- labile and heat-stable (LT/ST) DNA Detected Yersinia Enterocolitica [...] the findings and therapeutic plan with the resident/MICROSTRATEGY ARCHITECT and we collaborated on medical decision making for this patient. Askem * Eloy Alves DO - 07/24/2024 7:24 AM EST Physician Progress Note PATIENT: FRANCINE HOBSON [facility] #: [id number] : 1985 ADMIT DATE: 07/19/2024 12:43 PM DISCH DATE: RESPONDING PROVIDER #: Eloy Alves DO QUERY TEXT: Pt admitted with Crohns disease and has Severe Malnutrition documented in [employer] Progress notes. Please further clarify if you agree with the [employer] Install[employer] assessment. The medical record reflects the following: Risk Factors: Crohn's disease with possible bowel obstruction Clinical Indicators: 38 yo F Admitted with c/o severe abdominal pain and nausea x past 4-5 days. Per IM Progress notes-'Malnutrition' documented.. Per [employer] Installation [employer] Consult / progress notes- Severe Malnutrition in [...] by: Eloy Alves DO 07/24/2024 7:23 AM * Hemant Katz MD - 07/24/2024 6:32 AM EST Colorectal surgery: Daily Progress Note PATIENT NAME: Francine Hobson TODAY'S DATE: 07/24/2024, 6:32 AM CC: Mild abdominal pain along with nausea SUBJECTIVE: Pt seen and examined at bedside. Patient was given pur ed diet yesterday and was able to eat 90% of the diet following which patientstarted to develop nausea. Zofran was given. Afebrile, vital signs stable. No white count as of 07/23. Does not complain of any abdominal distention. Passing some amount of flatus, and had multiple liquid Bms yesterday. Is amenable to transfer to [facility] for higher level care. OBJECTIVE: VITALS: BP [...] Recommend evaluation by general surgery service at [facility]. This has been discussed with the patient's primary team. Ashley Loyola, 07/24/24 6:32 AM General Surgery PGY [address] Katz saw and examined the patient. I have edited the above and agree with the above. Hemant Katz Colorectal Surgery * Justus Spencer MD - 07/23/2024 3:15 PM EST Colorectal surgery: Daily Progress Note PATIENT NAME: [...] of flatus. Is amenable to transfer to [facility] for higher level care. OBJECTIVE: VITALS: BP [...] Recommend evaluation by general surgery service at [facility]. This has been discussed with the patient's primary team. Justus Spencer MD 07/23/24 3:15 PM General Surgery PGY 4 * London Morales MD - 07/23/2024 3:10 PM EST Images from the original note were not included. [facility] Office: [phone] Marco Delarosa DO, Dominic Gonzalez DO, Clifton Blanc DO, Froylan Snowden, DO, Paula Jensen MD, Radha Greer [...] Valentin MD, Tony Valentin MD, lAix Acosta, TOWER SUPERVISOR, Shefali Hills, TOWER SUPERVISOR, Ashley Baker, TOWER SUPERVISOR, Muna Brandon, DNP, Neida Mars, TOWER SUPERVISOR, Jigna De Dios, TOWER SUPERVISOR, Angelina Peguero, TOWER SUPERVISOR, Adwoa Lei, TOWER SUPERVISOR, Carmen Wray PAOliviaC, Kathy Apple PAOliviaC, Jaz Castaneda, TOWER SUPERVISOR, Robert Huertas, TOWER SUPERVISOR, Vanessa Saleh, TOWER SUPERVISOR, Philly Mcgarry, TOWER SUPERVISOR, Josefina Higgins, TOWER SUPERVISOR, Chanel Mccullough, ENGLISH LECTURER, Ghassan Schwartz, TOWER SUPERVISOR, Lissett Root, TOWER SUPERVISOR, Lu Cooley, TOWER SUPERVISOR [facility] IN-PATIENT SERVICE [facility] Progress Note 07/23/2024 3:10 PM Name: Francine Hobson Acct: [id number] Room: [facility]/0243-01 Day: 4 Admit Date: 07/19/2024 12:43 PM PCP: Dalia Apple DO Code Status: Full Code Subjective: Patient seen examined bedside today. She was able to get NG tube last night with Ativan, but this was pulled out early in the morning. Did discuss with GI/surgery recommended transferring patient to [facility] This was initiated this morning with [facility] access, awaiting callback. Brief History: This is [...] ml Labs: Hematology: Recent Labs 07/21/24 0323 07/22/2423807/23/24626 WBC -- 5.5 4.9 RBC -- 4.29 4.15 HGB -- 11.8* 11.6* HCT -- 39.4 38.1 MCV -- 91.8 91.8 MCH -- 27.5 28.0 MCHC -- 29.9 30.4 RDW -- 15.4* 15.7* PLT -- 294 177 MPV -- 9.4 9.9 SEDRATE 24* -- -- CRP 47.1* -- -- Chemistry: Recent Labs 07/22/2423807/22/24 0850 07/22/24 1754 07/23/24626 NA 135* -- [...] , PHART , PH , POCPCO2 , [id number] , PCO2 , POCPO2 , PO2ART , PO2 , POCHCO3 , [id number] , HCO3 , NBEA , PBEA , BEART , BE , THGBART , THB , [id number] , AJYE2MMV , M3CGIHFD , O2SAT , FIO2 Lab Results Component [...] surgery and GI, who recommend transfer to for surgical management of recurrent abscess which can be done under care of IBD specialists. Transfer initiated with [facility], I did talk to their accepting provider who would like to view the scans prior to transfer. Asked roseline to send the images for review to CC. 2. Malnutrition -[employer] [place] Installation Helper consulted. Patient will need TPN. PICC line ordered. 3. Anxiety - Continue home Celexa LONDON MORALES MD 07/23/2024 3:10 PM * Maritza Teran - 07/23/2024 1:11 PM EST Comprehensive Nutrition Assessment Type and Reason for Visit: Reassess Nutrition Recommendations/Plan: Start TPN 2-1 custom mix at 42 mL/h (1000 mL/d) with 150 g dextrose and 50 g protein. Will have 250mL lipid emulsion. This will provide 1210 kcal/d [...] Calf (gastrocnemius) Fluid Accumulation: No fluid accumulation Hypoid Gear Generator Strength: Not Performed Nutrition Assessment: Per RN pt refused PN through peripheral line. Pt was getting centeral line placed currently. RN to get PPN from [facility] and start, will switch to new bag [...] Measures: Height: 170.2 cm (5' 7.01 ) [place] Body Weight (IBW): 135 lbs (61 kg) [...] Used for Energy Requirements: Admission Energy (kcal/day): 8493-9458 kcals/day Weight Used for Protein Requirements: Admission Protein (g/day): 60-80 gm pro/day Method Used for Fluid Requirements: ml/Kg Fluid (ml/day): 35 mL/kg = 8094-7898 mL/day or per MD Nutrition Diagnosis: Severe [...] Edema Discharge Planning: Too soon to determine MARITZA TERAN Contact: * Jaxson Scanlon MD - 07/23/2024 9:44 AM EST [facility] - Progress Note Today's Date and Time: [...] with Dr Grover for infection. Please call [phone] abdomen prior to visit Medical Decision Making/Summary/Discussion:07/23/2024 IR - abscess not accessible Disc w [...] [facility], d/c with primary Infection Control Recommendations [place] Precautions Contact isolation Antimicrobial Stewardship Recommendations Simplification [...] She is planning on consultation with the [facility] but has not done so yet. [...] surgery were subsequently consulted for management. Infectious diseasewas consulted for guidance on antibiotic therapy given [...] take small amounts of food Transfer to [facility] has been requested No new issues reported [...] BIOPSY performed by Maru Maguire MD at [facility] CT ABSCESS DRAINAGE 05/03/2024 CT ABSCESS DRAIN SUBCUTANEOUS 05/03/2024 Jose Manuel Torre MD [facility] CT SCAN TONSILLECTOMY AND ADENOIDECTOMY TUMOR REMOVAL [...] occass. Drug use: Not Currently Types: Marijuana (D Hanis) Comment: occassional Sexual activity: Yes Partners: Male Other Topics Concern Not on file Social History Narrative Not on file Social Determinants of Health Financial Resource Strain: Low Risk (11/24/2022) Received from [facility] Overall Financial Resource Strain (CARDIA) Difficulty [...] file Social Connections: Unknown (06/03/2021) Received from [facility] Frequency of Communication with Friends and Family: Not asked Frequency of Social Gatherings with Friends and Family: Not asked Intimate Partner Violence: Unknown (06/03/2021) Received from [facility] Intimate Partner Violence Fear of Current or [...] labs: CBC with Differential: Recent Labs 07/22/24 02307/23/24 0627 WBC 5.5 4.9 HGB 11.8* 11.6* HCT 39.4 38.1 PLT 294 177 LYMPHOPCT 14* -- MONOPCT 8 -- EOSPCT 3 -- BMP: Recent Labs 07/22/24 02307/23/24 0627 NA 135* 137 K 4.6 3.8 CL 107 107 CO2 14* 18* BUN <2* <2* CREATININE 0.5* 0.4* MG -- 2.0 Hepatic Function Panel: Recent Labs 07/22/24 02307/23/24 0627 BILIDIR -- <0.1 IBILI -- Can not [...] in size. Pancreas: No pancreatic ductal dilation. Nodiscrete pancreatic parenchymal lesion. Adrenal Glands: Normal morphology. [...] the right lower quadrant. Moderate volume of unorganizedfree fluid more anteriorly in the pelvis. Aorta/IVC: [...] also noted in the pelvis. Medical Decision Giumgi-Swryapck-Kbarf: Results Procedure Component Value Units Date/Time Gastrointestinal Panel, Molecular [[id number]] Collected: 07/22/241258 Order Status: Sent Specimen: Stool Updated: 07/22/241258 Medical Decision Making-Other: Note: Thank you for allowing us to participate in the care of this patient. Please call with questions. Jaxson Scanlon MD 07/23/2024 Pager: - Office: * Yumi Abarca RN - 07/23/2024 9:09 AM EST Dietary accidently gave patient a pureed tray. Patient ate 90% of eggs and drank 120 ml of cranberry juice. Patient states that her abdominal pain is worse and has nausea. Patient had dilaudid at 0633 and is not due for dilaudid. Patient requests pain medication. She states nausea although does notwant to take zofran hoping that she will vomit the food. RN paged IM, Gen/Surg, GI, and spoke to job analysis manager. * Maru Maguire MD - 07/23/2024 7:38 AM EST [facility] Francine Hobson is a 38 y.o. female patient. Hospitalization Day:4 Chief consult reason: History of Crohn's disease Severe abdominal pain Partial small bowel obstruction on CT scan Abdominal abscesses Subjective: Patient seen and examined. Patient received breakfast tray accidentally this morning inwhich she consumed. Since then patient developed abdominal [...] lower abdominal tenderness R>L, nondistended, hypoactive and distantbowel sounds Extremities: no edema, no redness, No [...] sodium chloride flush, sodium chloride, potassium chloride ORpotassium alternative oral replacement OR potassium chloride, ondansetron [...] , TIBC , IRON , FERRITIN , [id number] , FOLATE , OCCULTBLD in the last 72 hours. BMP Recent Labs 07/22/24 02307/23/24 0627 NA 135* 137 K 4.6 3.8 CL 107 107 CO2 14* 18* BUN <2* <2* CREATININE 0.5* 0.4* GLUCOSE 72* 86 CALCIUM 8.7 8.4* MG -- 2.0 LFTS Recent Labs 07/22/24 0239 07/23/24 0627 [...] with Crohn's ileocolitis s/p ileocecal resection 2006, intra- abdominal abscess 2006, recurrent partial small bowel obstruction who presents with abdominal pain, nausea and vomiting Crohn's disease complicated by stricturing, partial small bowel obstruction, and prior intra-abdominal abscesses. CT showing partial bowel obstruction and multiple fluid collections-possible abscess Recommendations: Recommend TPN -awaiting PICC line Recommend transfer to [facility] where they have a dedicated IBD team including IBD GI, IBD surgeon and senior instructional designer Continue broad-spectrum antibiotics per ID discretion. Currently [...] in the care of your patient. Isabelle Stewart Gandhi, SEAM PRESS OPERATOR - TOWER SUPERVISOR on 07/23/2024 at 7:38 AM [facility] Please note that this note was generated using a voice recognition dictation software. Although every effort was made to ensure the accuracy of this automated policy change clerk, some errors in policy change clerk may have occurred. Attested: I have discussed the care of Francine Hobson and I have examined the patient myselft and taken ros andhpi , including pertinent history and exam findings, with the author of this note . I have reviewedthe price elements of all parts of the [...] follow-up physical examination and review of system. * Homero, Eloy Gamez MD - 07/22/2024 3:00 PM EST Images from the original note were not included. [facility] Office: [phone] Marco Delarosa DO, Dominic Gonzalez DO, Clifton [...] Valentin MD, Tony Valentin MD, Alix Acosta, TOWER SUPERVISOR, Shefali Hills, TOWER SUPERVISOR, Ashley Baker, TOWER SUPERVISOR, Muna Brandon, CRESENCIO, Neida Mars, TOWER SUPERVISOR, Jigna De Dios, TOWER SUPERVISOR, Angelina Peguero, TOWER SUPERVISOR, Adwoa Lei, TOWER SUPERVISOR, Carmen Wray, PA-C, Kathy Apple, PAOliviaC, Jaz Castaneda, TOWER SUPERVISOR, Robert Huertas, TOWER SUPERVISOR, Vanessa Saleh, TOWER SUPERVISOR, Philly Mcgarry, TOWER SUPERVISOR, Josefina Higgins, TOWER SUPERVISOR, Chanel Mccullough, ENGLISH LECTURER, Ghassan Schwartz, TOWER SUPERVISOR, Lissett Root, TOWER SUPERVISOR, Lu Cooley, TOWER SUPERVISOR [facility] IN-PATIENT SERVICE [facility] Progress Note 07/22/2024 3:00 PM Name: Francine Hobson Acct: [id number] Room: [address] [place] [address] Day: 3 Admit Date: 07/19/2024 12:43 PM PCP: Dalia Apple DO Code Status: Full Code Subjective: Patient seen examined bedside today. She was able to get NG tube last night with Ativan, but this was pulled out early in the morning. Did discuss with GI/surgery recommended transferring patient to [facility] This was initiated this morning with [facility] access, awaiting callback. Brief History: This [...] , PHART , PH , POCPCO2 , [id number] , PCO2 , POCPO2 , PO2ART , PO2 , POCHCO3 , KKC6RZF , HCO3 , NBEA , PBEA , BEART , BE , THGBART , THB , LVS4OKD , IJAF0ZLR , [id number] , O2SAT , FIO2 Lab Results Component [...] care of IBD specialists. Transfer initiated with [facility], I did talk to their accepting provider who would like to view the scans prior to transfer. Asked [facility] to send the images for review to CC. 2. Malnutrition -Sheet Rock Installation Helper consulted. Patient will need TPN. PICC line ordered. 3. Anxiety - Continue home Aileen Valentin MD 07/22/2024 3:00 PM * Deja Zamora, DO - 07/22/2024 11:44 AM EST Colorectal surgery: Daily Progress Note PATIENT NAME: [...] of flatus. Is amenable to transfer to [facility] for higher level care. OBJECTIVE: VITALS: BP [...] Recommend evaluation by general surgery service at [facility] This has been discussed with the patient's primary team. Deja Zamora DO 07/22/24 11:46 AM General Surgery PGY 1 * Jaxson Scanlon MD - 07/22/2024 8:20 AM EST [facility] - Progress Note Today's Date and Time: [...] and ulceration PSHx: Ileo-cecal resection 2012 Recommendations: Recommend Zosyn while in hospital IV ertapenem when ready for home picc x 28 days Office f/up in [address] Grover for infection. Please call [phone] abdomen prior to visit Medical Decision Making/Summary/Discussion:07/22/2024 IR - abscess not accessible Disc w [...] [facility], d/c with primary Infection Control Recommendations [place] Precautions Contact isolation Antimicrobial Stewardship Recommendations Simplification [...] She is planning on consultation with the [facility] but has not done so yet. [...] surgery were subsequently consulted for management. Infectious diseasewas consulted for guidance on antibiotic therapy given [...] BIOPSY performed by Maru Maguire MD at [facility] CT ABSCESS DRAINAGE 05/03/2024 CT ABSCESS DRAIN SUBCUTANEOUS 05/03/2024 Jose Manuel Torre MD [facility] CT SCAN TONSILLECTOMY AND ADENOIDECTOMY TUMOR REMOVAL [...] occass. Drug use: Not Currently Types: Marijuana (D Hanis) Comment: occassional Sexual activity: Yes Partners: Male Other Topics Concern Not on file Social History Narrative Not on file Social Determinants of Health Financial Resource Strain: Low Risk (11/24/2022) Received from [facility] Overall Financial Resource Strain (CARDIA) Difficulty [...] file Social Connections: Unknown (06/03/2021) Received from [facility] Social Connections Frequency of Communication with Friends and Family: Not asked Frequency of Social Gatherings with Friends and Family: Not asked Intimate Partner Violence: Unknown (06/03/2021) Received from [facility] Intimate Partner Violence Fear of Current or [...] in size. Pancreas: No pancreatic ductal dilation. Nodiscrete pancreatic parenchymal lesion. Adrenal Glands: Normal morphology. [...] the right lower quadrant. Moderate volume of unorganizedfree fluid more anteriorly in the pelvis. Aorta/IVC: [...] also noted in the pelvis. Medical Decision Pjjkjk-Phspnysn-Vxhfu: Results Procedure Component Value Units Date/Time Gastrointestinal Panel, Molecular [[id number]] Order Status: Sent Specimen: Stool Medical Decision Making-Other: Note: Thank you for allowing us to participate in the care of this patient. Please call with questions. Marlene Rodas MD ATTESTATION: I have discussed the case, including pertinent history and exam findings with the medical director occupational health.I have evaluated the History, physical findings and pictures of the patient and the price elements ofthe encounter have been performed by me. I have reviewed the laboratory data, other diagnostic studies and discussed them with the medical director occupational health. I have updated the medical record where necessary. I agree with the assessment, plan and orders as documented by the medical director occupational health and I have modified them as necessary. Jaxson Scanlon MD. 07/22/2024 Pager: - Office: * Maru Maguire MD - 07/22/2024 6:39 AM EST [facility] Note Francine Hobson is [...] Patient reports having a small bowel movement yesterday,passing a small amount of flatus. Discussed transfer to [facility] Objective: VITALS: BP 112/80 Pulse 72 Temp [...] lower abdominal tenderness R>L, nondistended, hypoactive and distantbowel sounds Extremities: no edema, no redness, No [...] sodium chloride flush, sodium chloride, potassium chloride ORpotassium alternative oral replacement OR potassium chloride, ondansetron [...] with Crohn's ileocolitis s/p ileocecal resection 2005, intra- abdominal abscess 2006, recurrent partial small bowel obstruction who presents with abdominal pain, nausea and vomiting Crohn's disease complicated by stricturing, partial small bowel obstruction, and prior intra-abdominal abscesses. CT showing partial bowel obstruction and multiple fluid collections-possible abscess Recommendations: Recommend TPN Recommend transfer to [facility] where they have a dedicated IBD team including IBD GI, IBD surgeon and senior instructional designer Continue broad-spectrum antibiotics with Zosyn Continue n.p.o. [...] the care of your patient. Isabelle Gandhi, SEAM PRESS OPERATOR - TOWER SUPERVISOR on 07/22/2024 at 6:39 AM [facility] Please note that this note was generated using a voice recognition dictation software. Although every effort was made to ensure the accuracy of this automated policy change clerk, some errors in policy change clerk may have occurred. Attested: I have discussed the care of Francine Hobson and I have examined the patient myselft and taken ros andhpi , including pertinent history and exam findings, with the author of this note . I have reviewedthe price elements of all parts of the [...] follow-up physical examination and review of system. * Gisele Schulz RN - 07/22/2024 3:20 AM EST NGT found out at bedside as per pt she was not aware it was out. Informed primary. Tried to encourage for reinsertion of NGT, however pt strongly refuse, stated she was very uncomfortable with it. * Flor Haley DO - 07/21/2024 8:16 PM EST RN reported attempted ngt tube placement but [...] throat spray. Ngt placed without issue. Flor Haley DO General Surgery, PGY-4 * Yumi Abarca RN - 07/21/2024 6:50 PM EST Patient quickly did not tolerate NG tube placement and requested RN to stop NG placement. Gen/Surg and IM were notified. * Eloy Valentin MD - 07/21/2024 5:03 PM EST Images from the original note were not included. [facility] Office: [phone] Marco Delarosa DO, Dominic Gonzalez DO, Clifton [...] Valentin MD, Tony Valentin MD, Alix Acosta, TOWER SUPERVISOR, Shefali Hills, TOWER SUPERVISOR, Ashley Baker, TOWER SUPERVISOR, Muna Brandon, [facility], Neida Mars, TOWER SUPERVISOR, Jigna De Dios, TOWER SUPERVISOR, Angelina Peguero, TOWER SUPERVISOR, Adwoa Lei, TOWER SUPERVISOR, JOHN AsifC, JOHN TylerC, Jaz Castaneda, TOWER SUPERVISOR, Robert Huertas, TOWER SUPERVISOR, Vanessa Saleh, TOWER SUPERVISOR, Philly Mcgarry, TOWER SUPERVISOR, Josefina Higgins, TOWER SUPERVISOR, Chanel Mccullough, [facility], Ghassan Schwartz, TOWER SUPERVISOR, Lissett Root, TOWER SUPERVISOR, Lu Cooley, TOWER SUPERVISOR [facility] IN-PATIENT SERVICE [facility] Progress Note 07/21/2024 5:03 PM Name: Francine Hobson Acct: [id number] Room: [address] [place] [address] Day: 2 Admit Date: 07/19/2024 12:43 PM [...] data in the 24 hours ending 07/21/24 1703 Labs: Hematology: Recent Labs 07/19/24 1309 07/19/24 [...] , PHART , PH , POCPCO2 , SOI9DXS , PCO2 , POCPO2 , PO2ART , PO2 , POCHCO3 , ADZ1DJG , HCO3 , NBEA , PBEA , BEART , BE , THGBART , THB , JZJ7JGY , CCNP6TLE , H5IXYBJI , O2SAT , FIO2 Lab Results Component [...] and read back by:WAQAS De Guzman 05/04/24 7407 Radiology: XR ABDOMEN (KUB) (SINGLE AP VIEW) [...] out to patients GI Dr. Rich as heis coming tomorrow. If he deems patient need, transfer will initiate this. - Await General surgery evaluation. 2. Malnutrition -Sheet Rock Installation Helper consulted 3. Anxiety - Continue home Celexa Eloy Valentin MD 07/21/2024 5:03 PM * Elizabeth Marcelo MD - 07/21/2024 12:47 PM EST [facility] Gastroenterology Progress Note Francine Hobson is a [...] Ht 1.702 m (5' 7 ) Wt 53.7kg (118 lb 6.4 oz) LMP 07/04/2024 (Approximate) [...] contact me with any questions or concerns. [facility] Leroy De La Vega, SEAM PRESS OPERATOR - TOWER SUPERVISOR [phone] 07/21/2024 12:47 PM Estimated time of 20 [...] examined the patient myselft and taken ros andhpi , including pertinent history and exam findings, with the author of this note . I have reviewedthe price elements of all parts of the [...] system. Dr. Maguire who is the primary metal bonding helper for this patient will be seeing her tomorrow, ID recommended antibiotics for which we will hold off on steroid, although again the CAT scan is not showing abscesses this time and the patient had no fever or no white count, but Dr. Maguire is more familiarwith this patient and will evaluate her tomorrow Electronically signed by Elizabeth Marcelo MD * Hemant Katz MD - 07/21/2024 10:06 AM EST General Surgery: Daily Progress Note HOD 2 PATIENT NAME: Francine Hobson TODAY'S DATE: 07/21/2024, 10:16 AM CC: My belly hurts SUBJECTIVE: Pt seen and examined at bedside. She has refused NG tube due to hesitation as well as history of nasal trauma. Patient this morning denies nausea, vomiting, diarrhea. Says her last bowel movement waslast night which was nonbloody. Patient is currently NPO. Imaging reviewed with team, and fluid collection seems unlikely to be relieved by IR drainage. Primary team, gastroenterology team, and our colorectal service recommend evaluation by [facility] Patient is afebrile with normal vital signs. Every 6 lactates have continued to be normal. CRP 47.1. White count yesterday was normal. Patient on IV Zosyn. OBJECTIVE: VITALS: BP 105/69 Pulse 67 Temp 97.5 F (36.4 C) (Oral) Resp 18 Ht 1.702 m (5' 7 ) Wt 53.7kg (118 lb 6.4 oz) LMP 07/04/2024 (Approximate) [...] Recommend evaluation by general surgery service at [facility] This has been discussed with the patient's primary team. I Dr. Katz saw and examined the patient. I have edited the above and agree with the above. Hemant Katz Colorectal Surgery * Manjit Grover MD - 07/21/2024 8:19 AM EST Images from the original note were not included. [facility] - Infectious diseases evaluation admission date 07/19/2024 [...] a month w CTAP Infection Control Recommendations [place] Precautions Contact Isolation Antimicrobial Stewardship Recommendations Simplification [...] but [facility]. She is planning on consultation with the [facility] but has not done so yet. [...] surgery were subsequently consulted for management. Infectious diseasewas consulted for guidance on antibiotic therapy given [...] BIOPSY performed by Maru Maguire MD at [facility] CT ABSCESS DRAINAGE 05/03/2024 CT ABSCESS DRAIN SUBCUTANEOUS 05/03/2024 Jose Manuel Torre MD [facility] CT SCAN TONSILLECTOMY AND ADENOIDECTOMY TUMOR REMOVAL [...] occass. Drug use: Not Currently Types: Marijuana (D Hanis) Comment: occassional Sexual activity: Yes Partners: Male Other Topics Concern Not on file Social History Narrative Not on file Social Determinants of Health Financial Resource Strain: Low Risk (11/24/2022) Received from [facility] Overall Financial Resource Strain (CARDIA) Difficulty [...] file Social Connections: Unknown (06/03/2021) Received from [facility] Social Connections Frequency of Communication with Friends and Family: Not asked Frequency of Social Gatherings with Friends and Family: Not asked Intimate Partner Violence: Unknown (06/03/2021) Received from [facility] Intimate Partner Violence Fear of Current or [...] Grover MD Office: Perfect serve / office [phone] * Kelly Bergeron RN - 07/20/2024 3:54 PM EST ED to inpatient nurses report Chief Complaint: [...] WDL Patient Behaviors: Anxious Vital signs Vitals: 07/19/24 2011 07/19/24 2315 07/20/24 0830 07/20/24 1345 BP: 123/72 [...] (Active) Site Assessment Clean, dry & intact 07/20/24 1202 Line Status Infusing 07/20/24 1202 Line Care Connections checked and tightened 07/20/24 120 Phlebitis Assessment No symptoms 07/20/24 120 Infiltration Assessment 0 07/20/24 120 Alcohol Cap Used Yes 07/20/24 120 Dressing Status Clean, dry & intact 07/20/24 120 Dressing Type Transparent 07/20/241201 Ambulatory Status: No [...] DO Daboul, Isam, MD Waterhouse, Shirley Ann, SEAM PRESS OPERATOR - Kelly Colon RN Aouad, Arlette T, MD Pratt, Susan, RN Alo, Abed E, [...] occass. Drug use: Not Currently Types: Marijuana (D Hanis) Comment: occassional Sexual activity: Yes Partners: Male Social Determinants of Health Financial Resource Strain: Low Risk (11/24/2022) Received from [facility] Overall Financial Resource Strain (CARDIA) Difficulty [...] No Social Connections: Unknown (06/03/2021) Received from [facility] Social Connections Frequency of Communication with Friends and Family: Not asked Frequency of Social Gatherings with Friends and Family: Not asked Intimate Partner Violence: Unknown (06/03/2021) Received from [facility] Intimate Partner Violence Fear of Current or [...] BIOPSY performed by Maru Maguire MD at [facility] CT ABSCESS DRAINAGE 05/03/2024 CT ABSCESS DRAIN SUBCUTANEOUS 05/03/2024 Jose Manuel Torre MD [facility] CT SCAN TONSILLECTOMY AND ADENOIDECTOMY TUMOR REMOVAL [...] ACID LACTIC ACID LACTIC ACID LACTIC ACID * Eloy Alves DO - 07/20/2024 8:51 AM EST Images from the original note were not included. [facility] Office: [phone] Marco Delarosa DO, Dominic Gonzalez DO, Clifton [...] Valentin MD, Tony Valentin MD, Alix Acosta, TOWER SUPERVISOR, Shefali Hills, TOWER SUPERVISOR, Ashley Baker, TOWER SUPERVISOR, Muna Brandon, CRESENCIO, Neida Mars, TOWER SUPERVISOR, Jigna De Dios, TOWER SUPERVISOR, Angelina Peguero, TOWER SUPERVISOR, Adwoa Lei, TOWER SUPERVISOR, Carmen Wray, PA-C, Kathy Aplpe, PA-C, Jaz Castaneda, TOWER SUPERVISOR, Robert Huertas, TOWER SUPERVISOR, Vanessa Saleh, TOWER SUPERVISOR, Philly Mcgarry, TOWER SUPERVISOR, Josefina Higgins, TOWER SUPERVISOR, Chanel Mccullough, [facility], Ghassan Schwartz, TOWER SUPERVISOR, Lissett Root, TOWER SUPERVISOR, Lu Cooley, TOWER SUPERVISOR [facility] IN-PATIENT SERVICE [facility] Progress Note 07/20/2024 8:51 AM Name: Francine Hobson Acct: [id number] Room: [address] [place] [address] Day: 1 Admit Date: 07/19/2024 12:43 PM PCP: No primary care provider on file. Code Status: Full Code Subjective: Patient seen examined bedside today. She does have some abdominal pain but denies any nausea vomiting. She has not had any flatus. She is afebrile. Has not had a bowel movement. On room air. Michelle lubin does not feel comfortable with NG tube unless her metal bonding helper is okay with it. Brief History: This [...] , PHART , PH , POCPCO2 , FMN7LTL , PCO2 , POCPO2 , PO2ART , PO2 , POCHCO3 , FZS7KWU , HCO3 , NBEA , PBEA , BEART , BE , THGBART , THB , IYV9RQY , QOMI9CJW , I7QAEQEA , O2SAT , FIO2 Lab Results Component [...] changes along with several fluid collections likely representingintra-abdominal abscess. CT also showed moderate volume of [...] of alcohol withdrawal at this time Malnutrition Sheet Rock Installation Helper consult Chronic problems Chronic anemia hemoglobin appears improved compared to baseline Continue home iron supplementations Anxiety Continue home Celexa Medical Decision Making: high Eloy Alves DO 07/20/2024 8:51 AM documented in this encounterBon [facility] Discharge instructions* Discharge Instructions* Sherly Amin RN - 06/05/2024 10:55 AM EST Images from the original note were not included. Sedation or General Anesthesia, Adult Care After Refer to this sheet in the next 24 hours. These instructions provide you with information on caringfor yourself after your procedure. Your caregiver may [...] if your caregiver approves them. Only take ndvz-bbi-sjehcss or prescription medicines for pain, discomfort, or [...] 06/21/2006 Document Revised: 12/20/2012 Document Reviewed: 10/19/2012 [facility] Patient Information 2013 [employer] Colonoscopy: What to Expect at Home Your Recovery After you have a colonoscopy, you will stay at the clinic for 1 to 2 hours until the medicines wearoff. Then you can go home, but you [...] such as ibuprofen (Advil, Motrin) and naproxen (Aleve),for a few days. Other instructions For your safety, you should not drive or operate machinery until the medicine effects are gone and you can think clearly. Your doctor may tell you not to drive or operate machinery until the day after your test. Do not sign legal documents or make major decisions until the medicine effects are gone and you canthink clearly. The anesthesia medicine can make it [...] Where can you learn more? Go to [email or web address] and sign in to your [employer] account. Enter E264 in the Search Health Information box to learn more about Colonoscopy: What to Expect at Home. If you do not have an account, please click on the Sign Up Now link. [employer], [employer]. Care instructions adapted under license by [employer]. This care instruction is for use with your licensed healthcare professional. If you have questions about a medical condition or this instruction, always ask your healthcare professional. [employer] disclaims any warranty or liability for your use of this information. Content Version: 9.9.066303; Last Revised: August 24, 2012 Call out patient scheduling for Abd CT scan at [phone] documented in this encounterBon [facility] History of Present illness Narrative* Demian Romero RN - 06/05/2024 8:50 AM EST Urine negative, results faxed to lab. documented in this encounterBon [facility] History of Present illness Narrative* Lauren Meier RN - 05/22/2024 1:15 PM EST Pre-op Instructions For Out-Patient Endoscopy Surgery Medication [...] lotion, powder, jewelry, piercings, perfume, makeup, nail hebrew, hair accessories, or hair spray on the day of surgery. Wear loose comfortable clothing. Leave your valuables at home but bring a payment source for any after-surgery prescriptions you plan to fill at [facility]. Bring a storage case for any glasses/contacts. An adult who is responsible for you MUST drive you home and should be with you for the first 24 hours after surgery. The Day of Surgery: Arrive at [facility] Entrance at the time directed by your surgeon and check in at the desk. If you have a living will or healthcare power of real estate associate attorney, please bring a copy. You will be taken to the pre-op holding area where you will be prepared for surgery. A physical assessment will be performed by a nurse practitioner or maid housekeeper. Your IV will be started and you will meet your anesthesiologist. When you go to surgery, your family will be directed to the surgical waiting room, where the doctorshould speak with them after your surgery. After surgery, you will be taken to the recovery area. When you are alert and stable, you will receive instructions and be prepared for discharge. Instructions reviewed, patient verbalizes understanding Colonoscopy 06/05/24 documented in this encounterBon [facility] Hospital course Narrative* Hardy Gamez MD - 05/09/2024 4:54 PM EST Discharge Summary Date: 05/09/2024 Patient Name: Francine [...] lower quadrant is an ovarian follicle not anabscess Loculated abscesses are less than 3 cm which do not require drainage Steroids per GI Previous aspirate growing gram-positive cocci. Received Iv antibiotics followed by oral antibioticsfor 2 weeks following culture sensitivities as per Infectious disease. Patient noted to have elevated calprotectin with concern for crohns flare. GI placed on steriods with plan for continuation of home meds. Patient overall improved with ongoing pain which she feels can be managed on oral at home.Long detailed discussion about risks, benefits and alternatives [...] 0 Comments: Labeling may look different. 25 zum=[id number] Units. Please double check dosages. omeprazole (PRILOSEC) [...] plan, and follow up. documented in this encounterBon [facility] Hospital Discharge instructions* Discharge Instructions* Hardy Gamez MD - 05/09/2024 4:53 PM EST You have been placed on oral antibiotics for 2 more weeks. We have started you on steriods for yourcrohns flare which is likely contributing. We have also written you a prescription for pain medication which needs to be used with caution as discussed in detail. You will need to follow up with infectious disease in office as well as your Electric Power Superintendent, primary care doctor for transitional care monitoring and follow up labs. If you experience any new, worsening or unchanged symptoms. Pleasecall or come to ER for further eval. * Discharge Instr - Activity* Hardy Gamez MD - 05/09/2024 4:54 PM EST As tolerated * Discharge Instr - Diet* Hardy Gamez MD - 05/09/2024 4:54 PM [...] the hospital and ask for the dietitian. * Discharge Instr - WEN* Hardy Gamez MD - 05/09/2024 4:54 PM [...] List Diagnosis Code Crohn's disease with complication ([facility]) K50.919 Abdominal pain despite therapy for Crohn's disease ([facility]) K50.90 Crohn's colitis, other complication ([facility]) K50.118 Ileitis K52.9 Partial small bowel obstruction ([facility]) K56.600 Crohn's disease of colon with rectal bleeding ([facility]) K50.111 Intra-abdominal abscess ([facility]) K65.1 Depression, unspecified F32.A Generalized anxiety disorder with panic attacks F41.1, F41.0 Crohn's disease of colon with complication ([facility]) K50.119 Generalized abdominal pain R10.84 Crohn's disease [...] MENTAL STATUS:} IV Access: { WEN IV ACCESS:144574518} Nursing Mobility/ADLs: Walking {CHP DME ADLs:501874208} Transfer {CHP DME ADLs:373021025} Bathing {CHP DME ADLs:060899012} Dressing {CHP DME ADLs:047628501} Toileting {CHP DME ADLs:151795268} Feeding {CHP DME ADLs:164312621} Steel Finisher {CHP DME ADLs:771555330} Med Delivery { WEN MED Delivery:928812371} Wound Care Documentation and Therapy: Elimination: Continence: Bowel: {YES / NO:} Bladder: {YES / NO:} Urinary Catheter: {Urinary Catheter:529941785} Colostomy/Ileostomy/Ileal Conduit: {YES / NO:} Date of Last BM: Intake/Output Summary (Last 24 hours) at 05/09/2024 1654 Last data filed at 05/08/2024 1819 Gross per 24 hour Intake 300 ml Output -- Net 300 ml I/O last 3 completed shifts: In: 1368.5 [P.O.:300; I.V.:504.2; IV Piggyback:564.3] Out: - Safety Concerns: { WEN Safety Concerns:290731335} Impairments/Disabilities: { WEN Impairments/Disabilities:199604237} Nutrition Therapy: Current Nutrition Therapy: { WEN Diet List:326341985} Routes of Feeding: {[facility] DME Other Feedings:781234986} Liquids: {Buffing Line Set Up Worker liquid thickness:56209} Daily Fluid Restriction: {CHP DME Yes amt example:826147416} Last Modified Barium Swallow with Video (Video Swallowing Test): {Done Not Done Date:} Treatments at the Time of Hospital Discharge: Respiratory Treatments: Oxygen Therapy: {Therapy; copd oxygen:60581} Ventilator: { CC Vent List:029885500} Rehab Therapies: {THERAPEUTIC INTERVENTION:0520537220} Weight Bearing Status/Restrictions: {[facility] Weight Bearin} Other Medical Equipment (for information only, NOT a DME order): {EQUIPMENT:717952462} Other Treatments: Patient's personal belongings (please select all that are sent with patient): {[facility] DME Belongings:846570901} RN SIGNATURE: {Esignature:416279988} CASE MANAGEMENT/SOCIAL WORK SECTION Inpatient Status Date: Readmission Risk Assessment Score: Readmission Risk Risk of Unplanned Readmission: 15 Discharging to Facility/ Agency Name: Address: Phone: Fax: Dialysis Facility (if applicable) Name: Address: Dialysis Schedule: Phone: Fax: [facility] Tender/Electrical Laboratory Technician signature: {Esignature:084096278} PHYSICIAN SECTION Prognosis: {Prognosis:7578910948} Condition at Discharge: { Patient Condition:432257217} Rehab Potential (if transferring to Rehab): {Prognosis:8984065157} Recommended Labs or Other Treatments After Discharge: Physician Certification: I certify the above information and transfer of Francine Hobson is necessary for the continuing treatment of the diagnosis listed and that she requires {Admit to Appropriate Level of Care:98223} for {GREATER/LESS:763673072} 30 days. Update Admission H&P: {CHP DME Changes in HandP:601904167} PHYSICIAN SIGNATURE: {Esignature:684419824} [facility] of Present illness Narrative* Jaxson Scanlon MD - 05/09/2024 9:54 AM EST Images from the original note were not included. [facility] - Progress Note Today's Date and Time: [...] with Dr Scanlon for infection. Please call [phone] for appointment Medical Decision Making/Summary/Discussion:05/09/2024 Chron's GI holding off steroids till abscess improves - await ID clearance Pelvic abscess: CT 05/06 shows persistent multiloculated pelvic abscess No surgical intervention at this time. On zosyn Infection Control Recommendations [place] Precautions Antimicrobial Stewardship Recommendations Simplification of therapy [...] was initially admitted on 05/01/2024. Patient seen atthe request of Dr. Martínez. INITIAL HISTORY: 05/01/24: Patient admitted to GI from ED 38yo female with a PMHx of Crohn's disease presents to the ED with diffuse abdominal pain that started earlier today. Pt reported having back pain, cough and body aches, believed to be unknown viral infection that waspresent for weeks. Cough was subsequently treated with [...] DRAIN SUBCUTANEOUS 05/03/2024 Jose Manuel Torre MD [facility] CT SCAN TONSILLECTOMY AND ADENOIDECTOMY TUMOR REMOVAL [...] Comment: occass. Drug use: Yes Types: Marijuana (D Hanis) Sexual activity: Yes Partners: Male Other Topics Concern Not on file Social History Narrative Not on file Social Determinants of Health Financial Resource Strain: Low Risk (11/24/2022) Received from [facility] Overall Financial Resource Strain (CARDIA) Difficulty [...] file Social Connections: Unknown (06/03/2021) Received from [facility] Social Connections Frequency of Communication with Friends and Family: Not asked Frequency of Social Gatherings with Friends and Family: Not asked Intimate Partner Violence: Unknown (06/03/2021) Received from [facility] Intimate Partner Violence Fear of Current or [...] GUIDEDPELVIC FLUID NEEDLE PLACEMENT/ASPIRATION MODERATE CONSCIOUS SEDATION 05/03/2024HISTORY: ORDERING SYSTEM PROVIDED HISTORY: Please perform CT guided IR aspiration of abdominal abscess TECHNOLOGIST PROVIDED HISTORY: Please perform CT guided IR aspiration of abdominal abscess Is the patient ?- >No Reason for Exam: Pelvic abscess aspirate Multilobulated pelvic fluid colle ction, Crohn's disease SEDATION: Moderate sedation was ordered and supervised by the attending withphysician [id number] monitoring. Medications were provided and recorded by Radiology nurses. DOSE: DOSE/DLP: 351.91 mGy-cm Dose modulation, iterative reconstruction, and/or weight based adjustment of the mA/kV was utilized to reduce the radiation dose to as low as reasonably achievable. TECHNIQUE/PROCEDURE DETAILS: Informed consent was obtained after a detailed explanation of the procedure including risks. [place] protocol was followed. Sterile gown, masks, hats, and gloves utilized for maximal sterile barrier. The patient was placed in the prone position on the CT couch. A delinquency prevention social worker scan was performed of the pelvis. The previously identified pelvic fluid was re- identified, and contrast could still be seen within the rectum/sigmoid colon. Moderate conscious sedation was initiated. A site was selected for drainage in the left perirectal region using a transgluteal approach. The skin was prepped and draped in sterile manner, and 1% lidocaine was utilized for local anesthetic. A 5 French9 [employer] needle sheath was advanced under intermittent CT [...] connection TECHNOLOGIST PROVIDED HISTORY: chrons flare, pelvic abscess,concern for fistulous connection Decision Support Exception - unselect if not a suspected or confirmed emergency medical condition->Emergency Medical Condition (MA) FINDINGS: Lower chest: The lungbases are clear. EG junction, stomach and duodenal [...] This is partially surrounded by the multiloculated abscessseen in the right lower abdomen measuring 7.1 [...] nodes: No enlarged lymph nodes Osseus structures: Nodestructive lesion Vasculature: No aneurysm Other: None 1. [...] SYSTEM PROVIDED HISTORY: adnexal cyst seen on electronic instrument trades worker PROVIDED HISTORY: adnexal cyst seen on CT scan FINDINGS: Measurements: Uterus: 3.5 x 4.5 x 7.8 cm Endometrial stripe:. 0.7 cm Right Ovary: 5.2 x5.5 x 7.0 cm Left Ovary: 2.0 x 2.1 x 4.4 cm Ultrasound Findings: Uterus: Uterus demonstrates normalmyometrial echotexture. Endometrial stripe: Endometrial stripe is within [...] ovarian probable benign cyst measuring 5.4 cm.Recommend follow- up pelvic ultrasound in 3-6 months. US NON OB TRANSVAGINAL Result Date: 05/01/2024 EXAMINATION: PELVIC ULTRASOUND 05/01/2024 TECHNIQUE: Transvaginal pelvic ultrasound was performed. COMPARISON: None. Correlation made to CT performed earlier in the day HISTORY: ORDERING SYSTEM PROVIDED HISTORY: adnexal cyst seen on electronic instrument trades worker PROVIDED HISTORY: adnexal cyst seen on CT [...] ovarian probable benign cyst measuring 5.4 cm.Recommend follow- up pelvic ultrasound in 3-[address] ABDOMEN [...] 01/25/2024 and 11/22/2023 HISTORY: ORDERING SYSTEM PROVIDED HISTORY:Hx of crohns, severe abdominal pain TECHNOLOGIST PROVIDED [...] no acute findings. GI/Bowel: Relatively diffuse bowel infl ammation involving long segments of small bowel in the pelvis, distal colon and rectum are noted. There is somewhat ill-defined fluid and clustered small bowel in the central lower abdomen/pelvis on axial image 113 has the appearance of an inflammatory mass associated with active Crohn's disease.Suspected rim enhancing free fluid in the pelvis and suspected fistula tract versus narrowed segment of colon on axial image 135. A rim enhancing pocket of fluid measuring up to 5.2 x 4.2 cm on axialimage 125 is a presumed abscess versus patulous small bowel loop. There is also a prominent fluid density in the right pelvis on axial image 136 that is unclear whether this is in additional fluid collection or prominent adnexal cyst. No evidence for bowel obstruction. No free air. Postoperative findings in the proximal colon again noted. Pelvis: Fluid and inflammatory change, as described above.No acute findings identified in the bladder. Peritoneum/Retroperitoneum: No free air. Rim enhancingfluid in the lower abdomen and pelvis, as above. Bones/Soft Tissues: No abnormality identified. *Unless otherwise specified, incidental findings do not require dedicated imaging follow-up. Findings compatible with active Crohn's disease with complex fluid collection associated with inflamed small bowel in the lower abdomen and pelvis and possible abscess, as described. Possible fistulaversus focal area of narrowing in the sigmoid colon. No evidence for bowel obstruction. These findings could be further delineated with follow-up imaging utilizing oral contrast. Prominent cystic structure in the right pelvis may represent an adnexal cyst versus loculated fluid collection, for which attention to on follow-up imaging is recommended. Medical Decision Rhngdc-Qfupcwkv-Fbppy: Results Procedure Component Value Units Date/Time C DIFF TOXIN/ANTIGEN [[id number]] Collected: 05/07/24 1425 Order Status: Completed Specimen: Stool Updated: 05/08/24 0940 Specimen Description .FECES C DIFF AG + TOXIN NEGATIVE Comment: No C. difficile antigen and Toxin Detected. Gastrointestinal Panel, Molecular [[id number]] Collected: 05/07/24 1145 Order Status: Sent Specimen: Stool Updated: 05/07/24 1145 C DIFF TOXIN/ANTIGEN [[id number]] Order Status: No result Specimen: Stool C DIFF TOXIN/ANTIGEN [[id number]] Order Status: Canceled Specimen: Stool Culture, Body Fluid (with Gram Stain) [[id number]] (Abnormal) Collected: 05/03/24 1805 Order Status: Completed [...] De Guzman 05/04/24 1750 C DIFF TOXIN/ANTIGEN [[id number]] Order Status: No result Specimen: Stool Culture, Blood 1 [[id number]] Collected: 05/01/24 1617 Order Status: Completed Specimen: Blood Updated: 05/06/24 163 Specimen Description .BLOOD Special Requests RAC 5ML Culture NO GROWTH 5 DAYS Culture, Blood 1 [[id number]] Collected: 05/01/24 1550 Order Status: Completed Specimen: [...] history and exam findings with the medical director occupational health.I have evaluated the History, physical findings and pictures of the patient and the price elements ofthe encounter have been performed by me. I have reviewed the laboratory data, other diagnostic studies and discussed them with the medical director occupational health. I have updated the medical record where necessary. I agree with the assessment, plan and orders as documented by the medical director occupational health and I have modified them as necessary. [...] treatment with Zosyn Discussed with nursing Staff, equipment planner Dr Mercado Infection Control and Prevention measures reviewed [place] precaution All prior entries were reviewed Colorectal surgery and internal medicine notes reviewed Administer medications as ordered Prognosis: Guarded Discharge planning reviewed Follow up as outpatient. Jaxson Scanlon MD. 05/09/2024, 9:54 AM Pager: - Office: * Hardy Gamez MD - 05/09/2024 9:11 AM EST Images from the original note were not included. [facility] Office: [phone] Marco Delarosa DO, Dominic Gonzalez DO, [place] [...] Ashley Baker CNP, Muna Brandon DNP, Neida Mars, RONEL, Jigna De Dios CNP, Angelina Peguero CNP, Adwoa Lei CNP, Carmen Wray PA-C, Kathy Apple PA-C, Jaz Castaneda CNP, Robert Huertas CNP, Vanessa Saleh CNP, Josefina Higgins CNP, Lissett Root CNP, Lu Cooley CNP [facility] IN-PATIENT SERVICE [facility] Progress Note 05/09/2024 9:11 AM Name: Francine Hobson Acct: [id number] Room: [address] [place] [address] Day: 8 Admit Date: 05/01/2024 2:13 PM [...] of Crohn's disease, history of ileocecal resection, anxietydepression, vitamin D deficiency presents with abdominal pain. Concern for Crohn's with abscess. Colorectal surgery, GI, IR following patient. Underwent CT abdomen pelvis on 05/02/2024 No additional drainage from IR standpoint as the right lower quadrant is an ovarian follicle not an abscess. Giventhat Loculated abscesses are less than 3 cm which do not require drainage, she was managed medically and improved. Previous aspirate growing gram-positive cocci. Received Iv antibiotics followed by oral antibiotics for 2 weeks following culture sensitivities as per Infectious disease. Patient notedto have elevated calprotectin with concern for crohns flare. GI placed on steriods with plan for continuation of home meds. Patient overall improved with ongoing pain which she feels is controlled onpain meds and improving. Review of Systems: Constitutional: [...] smoking cigarettes. She has never used smokeless tobacco.She reports current alcohol use. She reports current drug use. Drug: Marijuana (D Hanis). Family History: History reviewed. No pertinent family [...] results for input(s): LABALBU , LABA1C , K2QVNTW , FT4 , TSH , AST , ALT , LDH , GGT , ALKPHOS , BILITOT , BILIDIR , AMMONIA , AMYLASE , LIPASE , LACTATE , CHOL , HDL , CHOLHDLRATIO , TRIG , VLDL , CSU09CX , PHENYTOIN , PHENYF , URICACID , POCGLU in the last 72 hours. Invalid input(s): PROT , U0TIRJF , LABGGT , LDLCHOLESTEROL ABG:No results found for: POCPH , PHART , PH , POCPCO2 , WUD6YOZ , PCO2 , POCPO2 , PO2ART , PO2 , POCHCO3 , PJB2HSP , HCO3 , NBEA , PBEA , BEART , BE , THGBART , THB , OKP3IEH , NFSP6KKY , E8VZEHWK , O2SAT , FIO2 Lab Results Component [...] and read back by:WAQAS De Guzman 05/04/24 0960 Radiology: CT ABDOMEN PELVIS WO CONTRAST Additional [...] and partial SBO: Sbo improved, tolerating diet. Havingflatulence with small Bowl movement. Reports constuipation from [...] ordered Hardy Gamez MD 05/09/2024 9:11 AM * Leroy De La Vega SEAM PRESS OPERATOR - TOWER SUPERVISOR - 05/09/2024 8:03 AM EST [facility] Progress Note Francine Hobson is a [...] 0603 TIBC -- 179* FERRITIN -- 163* [id number] 176* -- FOLATE 17.7 -- BMP: No results for input(s): NA , K , CL , CO2 , BUN , CREATININE , GLUCOSE , CALCIUM , MG inthe last 72 hours. Invalid input(s): PHOS;3 LFTS: [...] contact me with any questions or concerns. [facility] G[facility] De La Vega, SEAM PRESS OPERATOR - [facility] [phone] 05/09/2024 8:03 AM Estimated time of 15 [...] examined the patient myselft and taken ros andhpi , including pertinent history and exam findings, with the author of this note . I have reviewedthe price elements of all parts of the [...] system. Electronically signed by Sean Mejia MD * Sean Mejia MD - 05/08/2024 2:21 PM EST [facility]'s Gastroenterology Progress Note Francine Hobson is a 38 y.o. female patient. Hospitalization Day:7 Chief consult reason: Crohn's disease Subjective: Pt seen and examined. Patient resting in bed today says she feels slightly better and is toleratinga little bit of oral intake Passing gas [...] 0603 TIBC -- 179* FERRITIN -- 163* [id number] 176* -- FOLATE 17.7 -- BMP: Recent [...] Once approved we will start patient on Solu- Medrol 40 mg IV once daily Full liquid diet-may advance as patient can tolerate Encourage OOB, up to chair, self-care, etc Avoid NSAIDs Supportive care per primary Will follow This plan was formulated in collaboration with Dr. Roberto MD Thank you for allowing me to participate in the care of your patient. Please feel free to contact me with any questions or concerns. [facility] Gastroenterology Leroy De La Vega, SEAM PRESS OPERATOR - TOWER SUPERVISOR [phone] 05/08/2024 2:21 PM Estimated time of 36 [...] examined the patient myselft and taken ros andhpi , including pertinent history and exam findings, with the author of this note . I have reviewedthe price elements of all parts of the [...] follow-up physical examination and review of system. * Jaxson Scanlon MD - 05/08/2024 10:58 AM EST Images from the original note were not included. [facility] - Progress Note Today's Date and Time: [...] with Dr Scanlon for infection. Please call [phone] for appointment Medical Decision Making/Summary/Discussion:05/08/2024 Chron's GI holding off steroids till abscess improves - await ID clearance Pelvic abscess: CT 05/06 shows persistent multiloculated pelvic abscess No surgical intervention at this time. On zosyn Infection Control Recommendations [place] Precautions Antimicrobial Stewardship Recommendations Simplification of therapy [...] was initially admitted on 05/01/2024. Patient seen atthe request of Dr. Zainulabedin. INITIAL HISTORY: 05/01/24: Patient admitted to GI from ED 38yo female with a PMHx of Crohn's disease presents to the ED with diffuse abdominal pain that started earlier today. Pt reported having back pain, cough and body aches, believed to be unknown viral infection that waspresent for weeks. Cough was subsequently treated with [...] DRAIN SUBCUTANEOUS 05/03/2024 Jose Manuel Torre MD [facility] CT SCAN TONSILLECTOMY AND ADENOIDECTOMY TUMOR REMOVAL [...] Comment: occass. Drug use: Yes Types: Marijuana (D Hanis) Sexual activity: Yes Partners: Male Other Topics Concern Not on file Social History Narrative Not on file Social Determinants of Health Financial Resource Strain: Low Risk (11/24/2022) Received from [facility] Overall Financial Resource Strain (CARDIA) Difficulty [...] file Social Connections: Unknown (06/03/2021) Received from [facility] Social Connections Frequency of Communication with Friends and Family: Not asked Frequency of Social Gatherings with Friends and Family: Not asked Intimate Partner Violence: Unknown (06/03/2021) Received from [facility] Intimate Partner Violence Fear of Current or [...] GUIDEDPELVIC FLUID NEEDLE PLACEMENT/ASPIRATION MODERATE CONSCIOUS SEDATION 05/03/2024HISTORY: ORDERING SYSTEM PROVIDED HISTORY: Please perform CT guided IR aspiration of abdominal abscess TECHNOLOGIST PROVIDED HISTORY: Please perform CT guided IR aspiration of abdominal abscess Is the patient ?- >No Reason for Exam: Pelvic abscess aspirate Multilobulated pelvic fluid colle ction, Crohn's disease SEDATION: Moderate sedation was ordered and supervised by the attending withphysician [id number]-okbw monitoring. Medications were provided and recorded by Radiology nurses. DOSE: DOSE/DLP: 351.91 mGy-cm Dose modulation, iterative reconstruction, and/or weight based adjustment of the mA/kV was utilized to reduce the radiation dose to as low as reasonably achievable. TECHNIQUE/PROCEDURE DETAILS: Informed consent was obtained after a detailed explanation of the procedure including risks. [place] protocol was followed. Sterile gown, masks, hats, and gloves utilized for maximal sterile barrier. The patient was placed in the prone position on the CT couch. A delinquency prevention social worker scan was performed of the pelvis. The previously identified pelvic fluid was re- identified, and contrast could still be seen within the rectum/sigmoid colon. Moderate conscious sedation was initiated. A site was selected for drainage in the left perirectal region using a transgluteal approach. The skin was prepped and draped in sterile manner, and 1% lidocaine was utilized for local anesthetic. A 5 French9 [employer] needle sheath was advanced under intermittent CT [...] connection TECHNOLOGIST PROVIDED HISTORY: chrons flare, pelvic abscess,concern for fistulous connection Decision Support Exception - unselect if not a suspected or confirmed emergency medical condition->Emergency Medical Condition (MA) FINDINGS: Lower chest: The lungbases are clear. EG junction, stomach and duodenal [...] This is partially surrounded by the multiloculated abscessseen in the right lower abdomen measuring 7.1 [...] nodes: No enlarged lymph nodes Osseus structures: Nodestructive lesion Vasculature: No aneurysm Other: None 1. [...] SYSTEM PROVIDED HISTORY: adnexal cyst seen on electronic instrument trades worker PROVIDED HISTORY: adnexal cyst seen on CT scan FINDINGS: Measurements: Uterus: 3.5 x 4.5 x 7.8 cm Endometrial stripe:. 0.7 cm Right Ovary: 5.2 x5.5 x 7.0 cm Left Ovary: 2.0 x 2.1 x 4.4 cm Ultrasound Findings: Uterus: Uterus demonstrates normalmyometrial echotexture. Endometrial stripe: Endometrial stripe is within [...] ovarian probable benign cyst measuring 5.4 cm.Recommend follow- up pelvic ultrasound in 3-6 months. US NON OB TRANSVAGINAL Result Date: 05/01/2024 EXAMINATION: PELVIC ULTRASOUND 05/01/2024 TECHNIQUE: Transvaginal pelvic ultrasound was performed. COMPARISON: None. Correlation made to CT performed earlier in the day HISTORY: ORDERING SYSTEM PROVIDED HISTORY: adnexal cyst seen on electronic instrument trades worker PROVIDED HISTORY: adnexal cyst seen on CT [...] ovarian probable benign cyst measuring 5.4 cm.Recommend follow- up pelvic ultrasound in 3-[address] ABDOMEN [...] 01/25/2024 and 11/22/2023 HISTORY: ORDERING SYSTEM PROVIDED HISTORY:Hx of crohns, severe abdominal pain TECHNOLOGIST PROVIDED [...] no acute findings. GI/Bowel: Relatively diffuse bowel infl ammation involving long segments of small bowel in the pelvis, distal colon and rectum are noted. There is somewhat ill-defined fluid and clustered small bowel in the central lower abdomen/pelvis on axial image 113 has the appearance of an inflammatory mass associated with active Crohn's disease.Suspected rim enhancing free fluid in the pelvis and suspected fistula tract versus narrowed segment of colon on axial image 135. A rim enhancing pocket of fluid measuring up to 5.2 x 4.2 cm on axialimage 125 is a presumed abscess versus patulous small bowel loop. There is also a prominent fluid density in the right pelvis on axial image 136 that is unclear whether this is in additional fluid collection or prominent adnexal cyst. No evidence for bowel obstruction. No free air. Postoperative findings in the proximal colon again noted. Pelvis: Fluid and inflammatory change, as described above.No acute findings identified in the bladder. Peritoneum/Retroperitoneum: No free air. Rim enhancingfluid in the lower abdomen and pelvis, as above. Bones/Soft Tissues: No abnormality identified. *Unless otherwise specified, incidental findings do not require dedicated imaging follow-up. Findings compatible with active Crohn's disease with complex fluid collection associated with inflamed small bowel in the lower abdomen and pelvis and possible abscess, as described. Possible fistulaversus focal area of narrowing in the sigmoid colon. No evidence for bowel obstruction. These findings could be further delineated with follow-up imaging utilizing oral contrast. Prominent cystic structure in the right pelvis may represent an adnexal cyst versus loculated fluid collection, for which attention to on follow-up imaging is recommended. Medical Decision Ntfzez-Bdfbceyt-Gggdt: Results Procedure Component Value Units Date/Time C DIFF TOXIN/ANTIGEN [[id number]] Collected: 05/07/24 1425 Order Status: Completed Specimen: Stool Updated: 05/08/24 0940 Specimen Description .FECES C DIFF AG + TOXIN NEGATIVE Comment: No C. difficile antigen and Toxin Detected. Gastrointestinal Panel, Molecular [[id number]] Collected: 05/07/24 1145 Order Status: Sent Specimen: Stool Updated: 05/07/24 1145 C DIFF TOXIN/ANTIGEN [[id number]] Order Status: No result Specimen: Stool C DIFF TOXIN/ANTIGEN [[id number]] Order Status: Canceled Specimen: Stool Culture, Body Fluid (with Gram Stain) [[id number]] (Abnormal) Collected: 05/03/24 1805 Order Status: Completed [...] De Guzman 05/04/24 1750 C DIFF TOXIN/ANTIGEN [[id number]] Order Status: No result Specimen: Stool Culture, Blood 1 [[id number]] Collected: 05/01/24 1617 Order Status: Completed Specimen: Blood Updated: 05/06/24 1636 Specimen Description .BLOOD Special Requests RAC 5ML Culture NO GROWTH 5 DAYS Culture, Blood 1 [[id number]] Collected: 05/01/24 1550 Order Status: Completed Specimen: Blood Updated: 05/06/24 1636 Specimen Description .BLOOD Special Requests LFT AC 10ML Culture NO GROWTH 5 DAYS Medical Decision Making-Other: Note: Thank you for allowing us to participate in the care of this patient. Please call with questions. Alona Millan, MS-3 Medical Student ATTESTATION: I have discussed the case, including pertinent history and exam findings with the medical director occupational health.I have evaluated the History, physical findings and pictures of the patient and the price elements ofthe encounter have been performed by me. I have reviewed the laboratory data, other diagnostic studies and discussed them with the medical director occupational health. I have updated the medical record where necessary. I agree with the assessment, plan and orders as documented by the medical director occupational health and I have modified them as necessary. [...] treatment with Zosyn Discussed with nursing Staff, equipment planner Dr Mercado Infection Control and Prevention measures reviewed [place] precaution All prior entries were reviewed Colorectal surgery and internal medicine notes reviewed Administer medications as ordered Prognosis: Guarded Discharge planning reviewed Follow up as outpatient. Jaxson Scanlon MD. 05/08/2024, 10:59 AM Pager: - Office: * Muna Brandon APRN - MICROSTRATEGY ARCHITECT - 05/08/2024 8:45 AM EST Images from the original note were not included. [facility] Office: [phone] Marco Delarosa DO, Dominic Gonzalez DO, Clifton [...] Ashley Schaffer DO, Cruzito Holloway MD, Alix Acosta,TOWER SUPERVISOR, Shefali Hills, TOWER SUPERVISOR, Ashley Baker, TOWER SUPERVISOR, Muna Brandon, CRESENCIO, Neida Mars, TOWER SUPERVISOR, Jigna De Dios, TOWER SUPERVISOR, Angelina Peguero, TOWER SUPERVISOR, Adwoa Lei, TOWER SUPERVISOR, Carmen Wray PA-C, Kathy Apple PA-C, Jaz Castaneda,TOWER SUPERVISOR, Robert Huertas, TOWER SUPERVISOR, Vanessa Saleh, TOWER SUPERVISOR, Josefina Higgins, TOWER SUPERVISOR, Lissett Root, TOWER SUPERVISOR, Lu Cooley, TOWER SUPERVISOR [facility] IN-PATIENT SERVICE [facility] Progress Note 05/08/2024 8:52 AM Name: Francine Hobson Acct: [id number] Room: [facility]/0343-02 Day: 7 Admit Date: 05/01/2024 2:13 PM [...] of Crohn's disease, history of ileocecal resection, anxietydepression, vitamin D deficiency presents with abdominal pain. Concern for Crohn's with abscess. Colorectal surgery, GI, IR following patient. Underwent CT abdomen pelvis on 05/02/2024 No additional drainage from IR standpoint as the right lower quadrant is an ovarian follicle not anabscess Loculated abscesses are less than 3 cm [...] smoking cigarettes. She has never used smokeless tobacco.She reports current alcohol use. She reports current drug use. Drug: Marijuana (D Hanis). Family History: History reviewed. No pertinent family history. Vitals: BP (!) 92/58 Pulse 65 Temp 98.2 F (36.8 C) (Oral) Resp 17 Ht 1.689 m (5' 6.5 ) Wt 55.4 kg(122 lb 2.2 oz) LMP 04/28/2024 SpO2 97% [...] results for input(s): LABALBU , LABA1C , F8ESBYB , FT4 , TSH , AST , ALT , LDH , GGT , ALKPHOS , BILITOT , BILIDIR , AMMONIA , AMYLASE , LIPASE , LACTATE , CHOL , HDL , CHOLHDLRATIO , TRIG , VLDL , RGM10KA , PHENYTOIN , PHENYF , URICACID , POCGLU in the last 72 hours. Invalid input(s): PROT , X5SAVCE , LABGGT , LDLCHOLESTEROL ABG:No results found for: POCPH , PHART , PH , POCPCO2 , KSR1QCH , PCO2 , POCPO2 , PO2ART , PO2 , POCHCO3 , WHL8SNW , HCO3 , NBEA , PBEA , BEART , BE , THGBART , THB , OOH3AYS , LOXS4EXT , Z8CGUNSW , O2SAT , FIO2 Lab Results Component [...] and read back by:WAQAS De Guzman 05/04/24 6874 Radiology: CT ABDOMEN PELVIS WO CONTRAST Additional [...] ovarian probable benign cyst measuring 5.4 cm.Recommend follow- up pelvic ultrasound in 3-6 months. US NON OB TRANSVAGINAL Result Date: 05/01/2024 1. Right ovarian 5.5 cm simple cystic structure most compatible with dominant follicle. 2. Otherwise, unremarkable pelvic ultrasound. RECOMMENDATIONS: Pathology: Right ovarian probable benign cyst measuring 5.4 cm.Recommend follow- up pelvic ultrasound in 3-[address] ABDOMEN PELVIS W IV CONTRAST Additional Contrast? None Result Date: 05/01/2024 Findings compatible with active Crohn's disease with complex fluid collection associated with inflamed small bowel in the lower abdomen and pelvis and possible abscess, as described. Possible fistulaversus focal area of narrowing in the sigmoid [...] ordered PT, OT Muna Brandon APRN - RIVER 05/08/2024 8:52 AM Associated attestation - Tanya [...] stated within HPI and the review of systemsas documented in the notes, all other systems were reviewed when able to and are reported negative. Additional Comments: Appreciate GI adverse disease recommendations. Fortunately does not appear that lesions are amenable to drainage. Plan for Augmentin on discharge for 2 weeks. Plan to advance diet. * Hemant Katz MD - 05/08/2024 7:22 AM EST Colorectal Surgery: Daily Progress Note PATIENT NAME: Francine Hobson TODAY'S DATE: 05/08/2024 SUBJECTIVE: Patient was seen and evaluated at bedside. Afebrile, vital signs normal limits. Patientadmits to continued right lower quadrant pain that is mildly improved since yesterday. States that she had a black bowel movement yesterday, unchanged in consistency since admission. States that she does not want to eat very much food because she does not want to have a bowel movement because that causes her pain. Fecal occult blood test yesterday was negative. Hemoglobin 8.7 from 10.4 yesterday.Continue to monitor abdominal exam. Interventional radiology read [...] 17 Ht 1.689 m (5' 6.5 ) Wt55.4 kg (122 lb 2.2 oz) LMP 04/28/2024 [...] GUIDEDPELVIC FLUID NEEDLE PLACEMENT/ASPIRATION MODERATE CONSCIOUS SEDATION 05/03/2024HISTORY: ORDERING SYSTEM PROVIDED HISTORY: Please perform CT guided IR aspiration of abdominal abscess TECHNOLOGIST PROVIDED HISTORY: Please perform CT guided IR aspiration of abdominal abscess Is the patient ?- >No Reason for Exam: Pelvic abscess aspirate Multilobulated pelvic fluid colle ction, Crohn's disease SEDATION: Moderate sedation was ordered and supervised by the attending withphysician [id number] monitoring. Medications were provided and recorded by Radiology nurses. DOSE: DOSE/DLP: 351.91 mGy-cm Dose modulation, iterative reconstruction, and/or weight based adjustment of the mA/kV was utilized to reduce the radiation dose to as low as reasonably achievable. TECHNIQUE/PROCEDURE DETAILS: Informed consent was obtained after a detailed explanation of the procedure including risks. [place] protocol was followed. Sterile gown, masks, hats, and gloves utilized for maximal sterile barrier. The patient was placed in the prone position on the CT couch. A delinquency prevention social worker scan was performed of the pelvis. The previously identified pelvic fluid was re- identified, and contrast could still be seen within the rectum/sigmoid colon. Moderate conscious sedation was initiated. A site was selected for drainage in the left perirectal region using a transgluteal approach. The skin was prepped and draped in sterile manner, and 1% lidocaine was utilized for local anesthetic. A 5 French9 [employer] Pharmaceuticalseh needle sheath was advanced under intermittent CT [...] History, physical exam, laboratory, and radiographic findings reviewedand discussed with attending. -Continue IV zosyn -Monitor [...] with the above. Hemant Katz Colorectal Surgery * Sean Mejia MD - 05/07/2024 3:16 PM EST [facility] Progress Note Francine Hobson is a [...] results for input(s): TIBC , FERRITIN , MSUFTDJO12 , FOLATE , OCCULTBLD in the last [...] contact me with any questions or concerns. [facility] Gastroenterology Leroy De La Vega, SEAM PRESS OPERATOR - TOWER SUPERVISOR [phone] 05/07/2024 3:16 PM Estimated time of 35 [...] examined the patient myselft and taken ros andhpi , including pertinent history and exam findings, with the author of this note . I have reviewedthe price elements of all parts of the [...] follow-up physical examination and review of system. * Ami Plaza RN - 05/07/2024 2:08 PM EST Pt cdiff ordered since admit. Does not meet criteria on paper. Discussed with dr mercado who has already spoken with stitching department supervisor Rukhsana about necessity for cdiff to be ruled out. * Hemant Katz MD - 05/07/2024 7:55 AM EST Colorectal Surgery: Daily Progress Note PATIENT NAME: Francine Hobson TODAY'S DATE: 05/07/2024, 7:55 PM SUBJECTIVE: Patient was seen and evaluated at bedside. Afebrile, vital signs normal limits. Patientadmits to slightly increased abdominal pain in the right lower quadrant, patient otherwise has mildabdominal pain in other quadrants. States that she [...] GUIDEDPELVIC FLUID NEEDLE PLACEMENT/ASPIRATION MODERATE CONSCIOUS SEDATION 05/03/2024HISTORY: ORDERING SYSTEM PROVIDED HISTORY: Please perform CT guided IR aspiration of abdominal abscess TECHNOLOGIST PROVIDED HISTORY: Please perform CT guided IR aspiration of abdominal abscess Is the patient ?- >No Reason for Exam: Pelvic abscess aspirate Multilobulated pelvic fluid colle ction, Crohn's disease SEDATION: Moderate sedation was ordered and supervised by the attending withphysician [id number] monitoring. Medications were provided and recorded by Radiology nurses. DOSE: DOSE/DLP: 351.91 mGy-cm Dose modulation, iterative reconstruction, and/or weight based adjustment of the mA/kV was utilized to reduce the radiation dose to as low as reasonably achievable. TECHNIQUE/PROCEDURE DETAILS: Informed consent was obtained after a detailed explanation of the procedure including risks. [place] protocol was followed. Sterile gown, masks, hats, and gloves utilized for maximal sterile barrier. The patient was placed in the prone position on the CT couch. A delinquency prevention social worker scan was performed of the pelvis. The previously identified pelvic fluid was re- identified, and contrast could still be seen within the rectum/sigmoid colon. Moderate conscious sedation was initiated. A site was selected for drainage in the left perirectal region using a transgluteal approach. The skin was prepped and draped in sterile manner, and 1% lidocaine was utilized for local anesthetic. A 5 French9 [employer]seh needle sheath was advanced under intermittent CT [...] History, physical exam, laboratory, and radiographic findings reviewedand discussed with attending. -Continue IV antibiotics -Monitor [...] with the above. Hemant Katz Colorectal Surgery * Jigna De Dios APRN - MICROSTRATEGY ARCHITECT - 05/07/2024 7:44 AM EST Images from the original note were not included. [facility] Office: [phone] Marco Delarosa DO, Dominic Gonzalez DO, Clifton [...] Ashley Schaffer DO, Cruzito Holloway MD, Alix Acosta,TOWER SUPERVISOR, Shefali Hills TOWER SUPERVISOR, Ashley Baker TOWER SUPERVISOR, Muna Brandon DNP, Neida Mars, TOWER SUPERVISOR, Jigna De Dios, TOWER SUPERVISOR, Angelina Peguero, TOWER SUPERVISOR, Adwoa Lei, TOWER SUPERVISOR, Carmen Wray PAOliviaC, Kathy Apple PAOliviaC, Jaz Castaneda,TOWER SUPERVISOR, Robert Huertas, TOWER SUPERVISOR, Vanessa Saleh, TOWER SUPERVISOR, Josefina Higgins, TOWER SUPERVISOR, Lissett Root, TOWER SUPERVISOR, Lu Cooley, TOWER SUPERVISOR [facility] IN-PATIENT SERVICE [facility] Progress Note 05/07/2024 7:44 AM Name: Francine Hobson Acct: [id number] Room: 0343/0343-02 IP Day: 6 Admit Date: 05/01/2024 2:13 PM [...] of Crohn's disease, history of ileocecal resection, anxietydepression, vitamin D deficiency presents with abdominal pain. [...] smoking cigarettes. She has never used smokeless tobacco.She reports current alcohol use. She reports current drug use. Drug: Marijuana (D Hanis). Family History: History reviewed. No pertinent family [...] results for input(s): LABALBU , LABA1C , Q2JYRGF , FT4 , TSH , AST , ALT , LDH , GGT , ALKPHOS , BILITOT , BILIDIR , AMMONIA , AMYLASE , LIPASE , LACTATE , CHOL , HDL , CHOLHDLRATIO , TRIG , VLDL , FJA14SO , PHENYTOIN , PHENYF , URICACID , POCGLU in the last 72 hours. Invalid input(s): PROT , G6FKGAN , LABGGT , LDLCHOLESTEROL ABG:No results found for: POCPH , PHART , PH , POCPCO2 , BAE3ZYR , PCO2 , POCPO2 , PO2ART , PO2 , POCHCO3 , YXV3IYF , HCO3 , NBEA , PBEA , BEART , BE , THGBART , THB , VTK4UFT , VIZI5HGJ , X3JBHVRJ , O2SAT , FIO2 Lab Results Component [...] back by:WAQAS De Guzman 05/04/24 1750 Radiology: CT ABDOMEN PELVIS WO CONTRAST Additional [...] ovarian probable benign cyst measuring 5.4 cm.Recommend follow- up pelvic ultrasound in 3-6 months. US NON OB TRANSVAGINAL Result Date: 05/01/2024 1. Right ovarian 5.5 cm simple cystic structure most compatible with dominant follicle. 2. Otherwise, unremarkable pelvic ultrasound. RECOMMENDATIONS: Pathology: Right ovarian probable benign cyst measuring 5.4 cm.Recommend follow- up pelvic ultrasound in 3-[address] ABDOMEN PELVIS W IV CONTRAST Additional Contrast? None Result Date: 05/01/2024 Findings compatible with active Crohn's disease with complex fluid collection associated with inflamed small bowel in the lower abdomen and pelvis and possible abscess, as described. Possible fistulaversus focal area of narrowing in the sigmoid [...] Zosyn. PRN analgesia. Repeat CT 05/06 of abdomen/pelviswith oral and rectal contrast showing persistent abscess. [...] prn. Advance diet per gen surg recommendations. Currentlyon clears--tolerating. Advance diet as tolerated. JIGNA DE DIOS APRN - MICROSTRATEGY ARCHITECT 05/07/2024 7:44 AM Associated attestation - Tanya [...] stated within HPI and the review of systemsas documented in the notes, all other systems were reviewed when able to and are reported negative. Additional Comments: Add Elavil, trial Ensures, has had one to two ensure clears per day. Plan for IR guided abscess drainage again. * Hemant Katz MD - 05/06/2024 11:49 AM EDT Colorectal Surgery: Daily Progress Note PATIENT NAME: Francine Hobson TODAY'S DATE: 05/06/2024, 11:49 PM SUBJECTIVE: Patient was seen and evaluated at bedside. Afebrile, vital signs normal limits. Patienthad episode of emesis yesterday however overnight she [...] INTAKE/OUTPUT: Intake/Output Summary (Last 24 hours) at 05/06/2024 2349 Last data filed at 05/06/2024 2030 Gross per 24 hour Intake 928.64 ml [...] GUIDEDPELVIC FLUID NEEDLE PLACEMENT/ASPIRATION MODERATE CONSCIOUS SEDATION 05/03/2024HISTORY: ORDERING SYSTEM PROVIDED HISTORY: Please perform CT guided IR aspiration of abdominal abscess TECHNOLOGIST PROVIDED HISTORY: Please perform CT guided IR aspiration of abdominal abscess Is the patient ?- >No Reason for Exam: Pelvic abscess aspirate Multilobulated pelvic fluid colle ction, Crohn's disease SEDATION: Moderate sedation was ordered and supervised by the attending withphysician [id number] monitoring. Medications were provided and recorded by Radiology nurses. DOSE: DOSE/DLP: 351.91 mGy-cm Dose modulation, iterative reconstruction, and/or weight based adjustment of the mA/kV was utilized to reduce the radiation dose to as low as reasonably achievable. TECHNIQUE/PROCEDURE DETAILS: Informed consent was obtained after a detailed explanation of the procedure including risks. [place] protocol was followed. Sterile gown, masks, hats, and gloves utilized for maximal sterile barrier. The patient was placed in the prone position on the CT couch. A delinquency prevention social worker scan was performed of the pelvis. The previously identified pelvic fluid was re- identified, and contrast could still be seen within the rectum/sigmoid colon. Moderate conscious sedation was initiated. A site was selected for drainage in the left perirectal region using a transgluteal approach. The skin was prepped and draped in sterile manner, and 1% lidocaine was utilized for local anesthetic. A 5 French9 [employer]seh needle sheath was advanced under intermittent CT [...] History, physical exam, laboratory, and radiographic findings reviewedand discussed with attending. -Continue IV antibiotics -Monitor [...] with the above. Hemant Katz Colorectal Surgery * Sean Mejia MD - 05/06/2024 11:29 AM EDT [facility]'s Gastroenterology Progress Note Francine Hobson is a [...] results for input(s): TIBC , FERRITIN , YMWTNDWB85 , FOLATE , OCCULTBLD in the last [...] contact me with any questions or concerns. [facility] G[facility] Company[facility]esh De La Vega, SEAM PRESS OPERATOR - [facility] [phone] 05/06/2024 11:29 AM Estimated time of 35 [...] examined the patient myselft and taken ros andhpi , including pertinent history and exam findings, with the author of this note . I have reviewedthe price elements of all parts of the [...] follow-up physical examination and review of system. * Ami Plaza RN - 05/06/2024 10:05 AM EDT Pt given contrast mixed with water and instructions given. * Manjit Grover MD - 05/06/2024 10:01 AM EDT Images from the original note were not included. [facility] - Infectious diseases evaluation admission date 05/01/2024 [...] cx Disc w medicine Infection Control Recommendations [place] Precautions Contact Isolation Antimicrobial Stewardship Recommendations Simplification [...] DRAIN SUBCUTANEOUS 05/03/2024 Jose Manuel Torre MD ST CT SCAN TONSILLECTOMY AND ADENOIDECTOMY TUMOR REMOVAL [...] Comment: occass. Drug use: Yes Types: Marijuana (D Hanis) Sexual activity: Yes Partners: Male Other Topics Concern Not on file Social History Narrative Not on file Social Determinants of Health Financial Resource Strain: Low Risk (11/24/2022) Received from [facility] Overall Financial Resource Strain (CARDIA) Difficulty [...] file Social Connections: Unknown (06/03/2021) Received from [facility] Social Connections Frequency of Communication with Friends and Family: Not asked Frequency of Social Gatherings with Friends and Family: Not asked Intimate Partner Violence: Unknown (06/03/2021) Received from [facility] Intimate Partner Violence Fear of Current or [...] Grover MD Office: Perfect serve / office [phone] * Tanya Mercado MD - 05/06/2024 9:37 AM EDT Attending Supervising Physician s Attestation Statement I [...] stated within HPI and the review of systemsas documented in the notes, all other systems were reviewed when able to and are reported negative. Additional Comments: Patient seen examined today. Abdominal pain slowly improving. Plan for repeat CT abdomen pelvis. Patient tolerating clear liquid diet and has drank 1 Ensure clear per day. Discussed about nutritionalneeds. She will try to increase her p.o. intake. Plan to increase p.o. intake after CT abdomen secondary to requiring oral contrast and sometimes causing nausea * Jigna De Dios, DIONISIO - MICROSTRATEGY ARCHITECT - 05/06/2024 7:35 AM EDT Images from the original note were not included. [facility] Office: [phone] Marco Delarosa DO, Dominic Gonzalez DO, Clifton [...] Robert Huertas CNP, Vanessa Saleh, RONEL, Josefina Higgins, RONEL, Lissett Root, RONEL, Lu Cooley, RONEL [facility] IN-PATIENT SERVICE [facility] Progress Note 05/06/2024 7:35 AM Name: Francine Hobson Acct: [id number] Room: [address] [place] [address] Day: 5 Admit Date: 05/01/2024 2:13 PM [...] of Crohn's disease, history of ileocecal resection, anxietydepression, vitamin D deficiency presents with abdominal pain. [...] smoking cigarettes. She has never used smokeless tobacco.She reports current alcohol use. She reports current drug use. Drug: Marijuana (D Hanis). Family History: History reviewed. No pertinent family [...] ending 05/06/24 0735 Labs: Hematology: Recent Labs 05/04/2419905/05/24 0753 WBC 16.0* 12.2* RBC 3.59* 3.69* [...] results for input(s): LABALBU , LABA1C , W2COHCR , FT4 , TSH , AST , ALT , LDH , GGT , ALKPHOS , BILITOT , BILIDIR , AMMONIA , AMYLASE , LIPASE , LACTATE , CHOL , HDL , CHOLHDLRATIO , TRIG , VLDL , IMZ72EB , PHENYTOIN , PHENYF , URICACID , POCGLU in the last 72 hours. Invalid input(s): PROT , L1ZMANH , LABGGT , LDLCHOLESTEROL ABG:No results found for: POCPH , PHART , PH , POCPCO2 , XBZ5YGS , PCO2 , POCPO2 , PO2ART , PO2 , POCHCO3 , IZL4ESF , HCO3 , NBEA , PBEA , BEART , BE , THGBART , THB , DBX2VOH , FSDC1TWN , L2OBSHYI , O2SAT , FIO2 Lab Results Component Value Date/Time SPECIAL Site: Body Fluid 05/03/2024 06:05 PM Lab Results Component Value Date/Time CULTURE POSITIVE Fluid Culture 05/03/2024 06:05 PM CULTURE 05/03/2024 06:05 PM DIRECT GRAM STAIN FROM BOTTLE: GRAM POSITIVE COCCI IN CHAINS CULTURE 05/03/2024 06:05 PM (NOTE) Direct Gram Stain from bottle result called to and read back by:WAQAS De Guzman 05/04/24 2950 Radiology: CT ABSCESS DRAINAGE Result Date: 05/04/2024 [...] ovarian probable benign cyst measuring 5.4 cm.Recommend follow- up pelvic ultrasound in 3-6 months. US NON OB TRANSVAGINAL Result Date: 05/01/2024 1. Right ovarian 5.5 cm simple cystic structure most compatible with dominant follicle. 2. Otherwise, unremarkable pelvic ultrasound. RECOMMENDATIONS: Pathology: Right ovarian probable benign cyst measuring 5.4 cm.Recommend follow- up pelvic ultrasound in 3-[address] ABDOMEN PELVIS W IV CONTRAST Additional Contrast? None Result Date: 05/01/2024 Findings compatible with active Crohn's disease with complex fluid collection associated with inflamed small bowel in the lower abdomen and pelvis and possible abscess, as described. Possible fistulaversus focal area of narrowing in the sigmoid [...] prn. Advance diet per gen surg recommendations. Currentlyon clears--tolerating. Advance diet as tolerated. DIONISIO ZHAO NP 05/06/2024 7:35 AM * Maryam Abdul RD - 05/05/2024 1:40 PM EDT Nutrition Assessment Type and Reason for Visit: [...] abcess was drained 05/04. LBM 05/04. Meds: Protonix,Sodium Chloride infusion, Zosyn. Labs: K 3.2 mmol/L, Mg 1.5 mg/dL, Phos 2.4 mg/dL Estimated Daily Nutrient Needs: Energy (kcal): 6824-4202 kcal/d per 25-30 kcal/kg Weight Used for [...] function as evidenced by NPO or clear liquidstatus due to medical condition, intake 0-25% Nutrition [...] determine Maryam Abdul MS, RDN, LDN Contact: [phone] * Leroy De La Vega APRN - RONEL - 05/05/2024 11:10 AM EDT [facility]'s Gastroenterology Progress Note Francine Hobson is a [...] Review: Labs and Imaging: CBC: Recent Labs 05/03/2441305/04/240 05/05/24 0753 WBC 18.2* 16.0* 12.2* HGB 9.5* 9.5* 9.8* MCV 97.7 85.2 87.8 RDW 14.5* 14.0 14.0 PLT [phone] ANEMIA STUDIES: No results for input(s): TIBC , FERRITIN , ISTKRZXO69 , FOLATE , OCCULTBLD in the last 72 hours. Invalid input(s): LABIRON BMP: Recent Labs 05/03/2441305/05/24 0753 NA 134* 138 K 3.7 3.2* CL [...] contact me with any questions or concerns. [facility] Gastroenterology Leroy De La Vega APRN - TOWER SUPERVISOR [phone] 05/05/2024 11:10 AM Estimated time of mins [...] examined the patient myselft and taken ros andhpi , including pertinent history and exam findings, with the author of this note . I have reviewedthe priec elements of all parts of the encounter [...] system. Electronically signed by Maru Maguire MD * Jigna De Dios APRN - MICROSTRATEGY ARCHITECT - 05/05/2024 7:51 AM EDT Images from the original note were not included. [facility] Office: [phone] Marco Delarosa DO, Dominic Gonzalez DO, Clifton [...] MD, Shahid Reddy MD, Ashley Schaffer, DO, Cruztio Holloway MD, Alix Acosta CNP, Shefali Hills CNP, Ashley Baker CNP, Muna Brandon DNP, Neida Mars, TOWER SUPERVISOR, Jigna De Dios, TOWER SUPERVISOR, Angelina Peguero, TOWER SUPERVISOR, Adwoa Lei, TOWER SUPERVISOR, Carmen Wray, JOHNC, JOHN TylerC, Jaz Castaneda,RONEL, Robert Huertas CNP, Vanessa Saleh, TOWER SUPERVISOR, Josefina Higgins, TOWER SUPERVISOR, Lissett Root, TOWER SUPERVISOR, Lu Cooley, TOWER SUPERVISOR [facility] IN-PATIENT SERVICE [facility] Progress Note 05/05/2024 7:52 AM Name: Francine Hobson Acct: [id number] Room: [facility] [place] [address] Day: 4 Admit Date: 05/01/2024 2:13 PM [...] of Crohn's disease, history of ileocecal resection, anxietydepression, vitamin D deficiency presents with abdominal pain. [...] smoking cigarettes. She has never used smokeless tobacco.She reports current alcohol use. She reports current drug use. Drug: Marijuana (D Hanis). Family History: History reviewed. No pertinent family [...] ending 05/05/24 0752 Labs: Hematology: Recent Labs 05/03/24 0414 05/04/24 0200 WBC 18.2* 16.0* RBC 3.53* [...] results for input(s): LABALBU , LABA1C , Y4XWHWX , FT4 , TSH , AST , ALT , LDH , GGT , ALKPHOS , BILITOT , BILIDIR , AMMONIA , AMYLASE , LIPASE , LACTATE , CHOL , HDL , CHOLHDLRATIO , TRIG , VLDL , THJ45PL , PHENYTOIN , PHENYF , URICACID , POCGLU in the last 72 hours. Invalid input(s): PROT , B2PVQFD , LABGGT , LDLCHOLESTEROL ABG:No results found for: POCPH , PHART , PH , POCPCO2 , TZV7ZJX , PCO2 , POCPO2 , PO2ART , PO2 , POCHCO3 , EWU8MZD , HCO3 , NBEA , PBEA , BEART , BE , THGBART , THB , CEB5NFV , UAJQ4ISY , E1KCYMBB , O2SAT , FIO2 Lab Results Component Value Date/Time SPECIAL Site: Body Fluid 05/03/2024 06:05 PM Lab Results Component Value Date/Time CULTURE POSITIVE Blood Culture (A) 05/03/2024 06:05 PM CULTURE 05/03/2024 06:05 PM DIRECT GRAM STAIN FROM BOTTLE: GRAM POSITIVE COCCI IN CHAINS CULTURE 05/03/2024 06:05 PM (NOTE) Direct Gram Stain from bottle result called to and read back by:WAQAS De Guzman 05/04/24 4152 Radiology: CT ABSCESS DRAINAGE Result Date: 05/04/2024 [...] ovarian probable benign cyst measuring 5.4 cm.Recommend follow- up pelvic ultrasound in 3-6 months. US NON OB TRANSVAGINAL Result Date: 05/01/2024 1. Right ovarian 5.5 cm simple cystic structure most compatible with dominant follicle. 2. Otherwise, unremarkable pelvic ultrasound. RECOMMENDATIONS: Pathology: Right ovarian probable benign cyst measuring 5.4 cm.Recommend follow- up pelvic ultrasound in 3-[address] ABDOMEN PELVIS W IV CONTRAST Additional Contrast? None Result Date: 05/01/2024 Findings compatible with active Crohn's disease with complex fluid collection associated with inflamed small bowel in the lower abdomen and pelvis and possible abscess, as described. Possible fistulaversus focal area of narrowing in the sigmoid [...] prn. Advance diet per gen surg recommendations. Currentlyon clears--tolerating. DIONISIO ZHAO NP 05/05/2024 7:52 AM * Hemant Katz MD - 05/05/2024 7:33 AM EDT Colorectal Surgery: Daily Progress Note PATIENT NAME: Francine Hobson TODAY'S DATE: 05/05/2024, 7:33 AM SUBJECTIVE: Patient was seen and evaluated at bedside. Afebrile, vital signs normal limits. Patienthad episode of emesis yesterday however overnight she [...] GUIDEDPELVIC FLUID NEEDLE PLACEMENT/ASPIRATION MODERATE CONSCIOUS SEDATION 05/03/2024HISTORY: ORDERING SYSTEM PROVIDED HISTORY: Please perform CT guided IR aspiration of abdominal abscess TECHNOLOGIST PROVIDED HISTORY: Please perform CT guided IR aspiration of abdominal abscess Is the patient ?- >No Reason for Exam: Pelvic abscess aspirate Multilobulated pelvic fluid colle ction, Crohn's disease SEDATION: Moderate sedation was ordered and supervised by the attending withphysician [id number] monitoring. Medications were provided and recorded by Radiology nurses. DOSE: DOSE/DLP: 351.91 mGy-cm Dose modulation, iterative reconstruction, and/or weight based adjustment of the mA/kV was utilized to reduce the radiation dose to as low as reasonably achievable. TECHNIQUE/PROCEDURE DETAILS: Informed consent was obtained after a detailed explanation of the procedure including risks. [place] protocol was followed. Sterile gown, masks, hats, and gloves utilized for maximal sterile barrier. The patient was placed in the prone position on the CT couch. A delinquency prevention social worker scan was performed of the pelvis. The previously identified pelvic fluid was re- identified, and contrast could still be seen within the rectum/sigmoid colon. Moderate conscious sedation was initiated. A site was selected for drainage in the left perirectal region using a transgluteal approach. The skin was prepped and draped in sterile manner, and 1% lidocaine was utilized for local anesthetic. A 5 French9 [employer] needle sheath was advanced under intermittent CT [...] History, physical exam, laboratory, and radiographic findings reviewedand discussed with attending. -Continue IV antibiotics -Monitor [...] with the above. Hemant Katz Colorectal Surgery * Leroy De La Vega, DIONISIO - TOWER SUPERVISOR - 05/04/2024 9:57 AM EDT [facility] Progress Note Francine Hobson is a [...] results for input(s): TIBC , FERRITIN , CDNARYQT98 , FOLATE , OCCULTBLD in the last [...] contact me with any questions or concerns. [facility] Leroy De La Vega APRN - TOWER SUPERVISOR [phone] 05/04/2024 9:58 AM Estimated time of mins [...] examined the patient myselft and taken ros andhpi , including pertinent history and exam findings, with the author of this note . I have reviewedthe price elements of all parts of the [...] system. Electronically signed by Maru Maguire MD * Jigna De Dios, DIONISIO - MICROSTRATEGY ARCHITECT - 05/04/2024 7:52 AM EDT Images from the original note were not included. [facility] Office: [phone] Marco Delarosa DO, Dominic Gonzalez DO, Clifton Blanc DO, Froylan Snowden DO, Paula Jensen MD, Radha Greer MD, Nitish Parra MD, Maya Hernández MD, Porfirio García MD, Norma Smith MD, Tanya Mercado MD, Eloy Alves DO, Heidi Roche MD, Arthur Schroeder MD, Jose Manuel Delarosa DO, Shikha Pastrana MD, Obed Lilly DO, Rosangela Koehler MD, Alyas De Santiago MD, Dianne Agudelo MD, Judith Nicole MD, London Morales MD, Gamal Granger MD, Abby Salgado MD, Nereyda Lucas MD, Dru Shannon MD, Shahid Reddy MD, Ashley Schaffer DO, Cruzito Holloway MD, Alix Acosta,TOWER SUPERVISOR, Shefali Hills, TOWER SUPERVISOR, Ashley Baker, TOWER SUPERVISOR, Muna Brandon, CRESENCIO, Neida Mars, TOWER SUPERVISOR, Jigna De Dios TOWER SUPERVISOR, Angelina Peguero TOWER SUPERVISOR, Adwoa Lei TOWER SUPERVISOR, Carmen Wrya, PAOliviaC, JOHN TylerC, Jaz Castaneda,TOWER SUPERVISOR, Robert Huertas CNP, Vanessa Saleh CNP, Josefina Higgins TOWER SUPERVISOR, Lissett Root CNP, Lu Cooley, TOWER SUPERVISOR [facility] IN-PATIENT SERVICE [facility] Progress Note 05/04/2024 7:52 AM Name: Francine Hobson Acct: [id number] Room: [address] [place] [address] Day: 3 Admit Date: 05/01/2024 2:13 PM [...] of Crohn's disease, history of ileocecal resection, anxietydepression, vitamin D deficiency presents with abdominal pain. [...] smoking cigarettes. She has never used smokeless tobacco.She reports current alcohol use. She reports current drug use. Drug: Marijuana (D Hanis). Family History: History reviewed. No pertinent family [...] , PHART , PH , POCPCO2 , VNR0XQB , PCO2 , POCPO2 , PO2ART , PO2 , POCHCO3 , PEY5XDZ , HCO3 , NBEA , PBEA , BEART , BE , THGBART , THB , GPR5BSE , RBAT4GMQ , O9XDPITR , O2SAT , FIO2 Lab Results Component [...] ovarian probable benign cyst measuring 5.4 cm.Recommend follow- up pelvic ultrasound in 3-6 months. US NON OB TRANSVAGINAL Result Date: 05/01/2024 1. Right ovarian 5.5 cm simple cystic structure most compatible with dominant follicle. 2. Otherwise, unremarkable pelvic ultrasound. RECOMMENDATIONS: Pathology: Right ovarian probable benign cyst measuring 5.4 cm.Recommend follow- up pelvic ultrasound in 3-[address] ABDOMEN PELVIS W IV CONTRAST Additional Contrast? None Result Date: 05/01/2024 Findings compatible with active Crohn's disease with complex fluid collection associated with inflamed small bowel in the lower abdomen and pelvis and possible abscess, as described. Possible fistulaversus focal area of narrowing in the sigmoid [...] Protonix. DIONISIO ZHAO NP 05/04/2024 7:52 AM * Hemant Katz MD - 05/04/2024 6:[address] Katz was present throughout and [...] History, physical exam, laboratory, and radiographic findings reviewedand discussed with attending. -Continue IV antibiotics -Monitor trend of WBC -Monitor electrolytes. Recommend K >4, Mag >2 -Appreciate GI recommendations. -Pain and nausea control as needed -Monitor vitals per unit standard -Encourage I-S, deep breathing, and cough -Diet: NPO -Remainder of plan and disposition per primary team. * Maritza Teran - 05/03/2024 3:16 PM EDT Comprehensive Nutrition Assessment Type and Reason for [...] mass loss Fluid Accumulation: No fluid accumulation Hypoid Gear Generator Strength: Not Performed Nutrition Assessment: Pt admit for intra-abdominal abscess. Seen for positive nutrition screen. Pt has PMH of crohn's disease. Per conversation with pt and visitor pt knows what foods she can tolerate and often will put herself on liquid diet when having flair ups. Pt has been NPO x3 days for bowel rest, with poor intake 2 days BELT NOTCHER. Nutrition Related Findings: No edema. LBM 05/02, hypoactive bowel sounds. Labs: Na 134, Glu 60, Ca 7.9. Meds reviewed. Wound Type: None Current Nutrition Intake & Therapies: Average Meal Intake: NPO Average Supplements Intake: NPO Diet NPO Exceptions are: Ice Chips Anthropometric Measures: Height: 168.9 cm (5' 6.5 ) [place] Body Weight (IBW): 132 lbs (60 kg) Current Body Weight: 55.4 kg (122 lb 2.2 oz), 92.5 % IBW. Current BMI (kg/m2): 19.4 Usual Body Weight: 56.7 kg (125 lb) (X3 months) % Weight Change (Calculated): -2.3 BMI Categories: Normal Weight (BMI 18.5-24.9) Estimated Daily Nutrient Needs: Energy Requirements Based On: Kcal/kg Weight Used for Energy Requirements: Current Energy (kcal/day): 8521-4300 kcal/d per 25-30 kcal/kg Weight Used for Protein Requirements: Current Protein (g/day): 67-78 g/d per 1.2-1.4 g/kg Method Used for Fluid Requirements: 1 ml/kcal Fluid (ml/day): or per physician Nutrition Diagnosis: Inadequate protein-energy intake related to altered GI function as evidenced by NPO or clear liquidstatus due to medical condition, poor intake prior [...] Edema Discharge Planning: Too soon to determine MARITZA TERAN Contact: * Tanya Mercado MD - 05/03/2024 2:32 PM EDT Images from the original note were not included. [facility] Office: [phone] Marco Delarosa DO, Dominic Gonzalez DO, Clifton [...] Ashley Schaffer DO, Cruzito Holloway MD, Alix Aocsta CNP, Shefali Hills CNP, Ashley Baker CNP, Muna Brandon DNP, Neida Mars CNP, Jigna De Dios CNP, Angelina Peguero, TOWER SUPERVISOR, Adwoa Lei CNP, JOHN AsifC, JOHN TylerC, Jaz Castaneda CNP, Robert Huertas CNP, Vanessa Saleh CNP, Josefina Higgins CNP, Lissett Root, RONEL, Lu Cooley, TOWER SUPERVISOR [facility] IN-PATIENT SERVICE [facility] Progress Note 05/03/2024 2:32 PM Name: Francine Hobson Acct: [id number] Room: 0343/0343-02 IP Day: 2 Admit Date: 05/01/2024 2:13 PM PCP: No primary care provider on file. Code Status: Full Code Subjective: C/C: Chief Complaint Patient presents with Abdominal Pain Interval History Status: not changed. Patient seen examined bedside. Still having abdominal pain. Not hungry Brief History: 38-year-old female past medical history of Crohn's disease, history of ileocecal resection, anxietydepression, vitamin D deficiency presents with abdominal pain. [...] smoking cigarettes. She has never used smokeless tobacco.She reports current alcohol use. She reports current drug use. Drug: Marijuana (D Hanis). Family History: History reviewed. No pertinent family history. Vitals: BP 112/60 Pulse (!) 108 Temp 99.1 F (37.3 C) Resp 16 Ht 1.689 m (5' 6.5 ) Wt 55.4 kg (122lb 2.2 oz) LMP 04/28/2024 SpO2 97% BMI [...] , PHART , PH , POCPCO2 , UKQ8CAU , PCO2 , POCPO2 , PO2ART , PO2 , POCHCO3 , TVP0WMR , HCO3 , NBEA , PBEA , BEART , BE , THGBART , THB , BMC1UOG , FGBK7KAK , K6GIVMMK , O2SAT , FIO2 Lab Results Component [...] ovarian probable benign cyst measuring 5.4 cm.Recommend follow- up pelvic ultrasound in 3-6 months. US NON OB TRANSVAGINAL Result Date: 05/01/2024 1. Right ovarian 5.5 cm simple cystic structure most compatible with dominant follicle. 2. Otherwise, unremarkable pelvic ultrasound. RECOMMENDATIONS: Pathology: Right ovarian probable benign cyst measuring 5.4 cm.Recommend follow- up pelvic ultrasound in 3-[address] ABDOMEN PELVIS W IV CONTRAST Additional Contrast? None Result Date: 05/01/2024 Findings compatible with active Crohn's disease with complex fluid collection associated with inflamed small bowel in the lower abdomen and pelvis and possible abscess, as described. Possible fistulaversus focal area of narrowing in the sigmoid [...] in all regions of abdomen. No guarding, slightlyless distended than yesterday Extremities: no edema, redness, [...] dose of ativan PRN ordered. Discussed with GI Tanya Mercado MD 05/03/2024 2:32 PM * Obdulia Hagen, [facility] - 05/03/2024 9:55 AM EDT [facility] Pharmacokinetic Monitoring Service - Vancomycin [...] sodium chloride 0.9 % 250 mL IVPB (Wulu7Jud) () Restarted 05/03/24 0435 750 mg New Bag 0409 750 mg New Bag 05/02/242006 750 mg New Bag 1303 750 mg New Bag 0404 vancomycin (VANCOCIN) 1,000 mg in sodium chloride 0.9 % 250 mL IVPB (Otqd0Xjl) (mg) 1,000 mg New Bag 05/01/24 1638 [...] Thank you for the consult, Obdulia Hagen Pharm.D., [facility] 05/03/2024 9:55 AM * Isabelle Gandhi, SEAM PRESS OPERATOR - TOWER SUPERVISOR - 05/03/2024 6:44 AM EDT [facility] Progress Note Francine Hobson is a [...] dicyclomine, sodium chloride flush, sodium chloride, potassium chlorideOR potassium alternative oral replacement OR potassium chloride, ondansetron OR ondansetron, [Held by provider] polyethylene glycol, bisacodyl, acetaminophen OR acetaminophen, LORazepam, fentanNYL Data Review: LABS and IMAGING: CBC Recent Labs 05/01/24 1442 05/02/24 0238 05/03/24 0414 WBC 25.1* 22.8* 18.2* HGB 12.7 10.4* 9.5* HCT 40.1 32.6* 34.5* MCV 86.2 87.4 97.7 MCHC 31.7 31.9 27.5* RDW 14.6* 14.3 14.5* PLT 469* 322 304 Immature PLTs No results found for: PLTFLUORE PT/INR Recent Labs 05/02/24 0238 PROTIME 15.4* INR 1.2 ANEMIA STUDIES No results for input(s): IRONPERSAT , TIBC , IRON , FERRITIN , TOJLILSU18 , FOLATE , OCCULTBLD in the last 72 hours. BMP Recent Labs 05/01/24 1442 05/02/24 0238 05/02/24 0832 05/03/24 0414 NA 136 133* -- 134* K 3.0* 3.4* 3.5* 3.7 CL 94* 99 -- 104 CO2 26 23 -- 13* BUN 3* 3* -- 3* CREATININE 0.7 0.5* -- 0.5* GLUCOSE 129* 82 -- 60* CALCIUM 9.3 8.2* -- 7.9* MG -- 1.5* -- -- LFTS Recent Labs 05/01/24 1442 05/02/24 0238 ALKPHOS 117* 78 ALT 14 8* AST 19 11 BILITOT 0.5 0.7 BILIDIR -- 0.4* ALBUMIN 3.7 2.8* AMYLASE/LIPASE/AMMONIA Recent Labs 05/01/24 1442 LIPASE 20 Acute Hepatitis Panel Lab Results [...] with Crohn's ileocolitis s/p ileocecal resection 2005, intra- abdominal abscess 2005, recurrent partial small bowel obstruction who presents [...] the care of your patient. Isabelle Gandhi, SEAM PRESS OPERATOR - TOWER SUPERVISOR on 05/03/2024 at 6:44 AM [facility] Please note that this note was generated using a voice recognition dictation software. Although every effort was made to ensure the accuracy of this automated policy change clerk, some errors in policy change clerk may have occurred. Associated attestation - Maru Maguire MD - 05/03/2024 7:15 PM EDT Attested: I have discussed the care of Francine Hobson and I have examined the patient myselft and taken ros andhpi , including pertinent history and exam findings, with the author of this note . I have reviewedthe price elements of all parts of the [...] system. Electronically signed by Maru Maguire MD * Hemant Katz MD - 05/03/2024 6:17 AM EDT Colorectal Surgery: Daily Progress Note PATIENT NAME: [...] ovarian probable benign cyst measuring 5.4 cm.Recommend follow- up pelvic ultrasound in 3-6 months. US NON OB TRANSVAGINAL Result Date: 05/01/2024 1. Right ovarian 5.5 cm simple cystic structure most compatible with dominant follicle. 2. Otherwise, unremarkable pelvic ultrasound. RECOMMENDATIONS: Pathology: Right ovarian probable benign cyst measuring 5.4 cm.Recommend follow- up pelvic ultrasound in 3-[address] ABDOMEN PELVIS W IV CONTRAST Additional Contrast? None Result Date: 05/01/2024 Findings compatible with active Crohn's disease with complex fluid collection associated with inflamed small bowel in the lower abdomen and pelvis and possible abscess, as described. Possible fistulaversus focal area of narrowing in the sigmoid [...] History, physical exam, laboratory, and radiographic findings reviewedand discussed with attending. -Continue IV antibiotics -Monitor [...] with the above. Hemant Katz Colorectal Surgery * Ruth Rivera RN - 05/02/2024 7:25 PM EDT Patient is refusing for lab draw. FRANKLIN Acosta informed. * Tanya Mercado MD - 05/02/2024 4:27 PM EDT Physician Progress Note PATIENT: FRANCINE HOBSON [facility] #: [id number] : 1985 ADMIT DATE: 05/01/2024 2:13 PM [...] by: Tanya Mercado MD 05/02/2024 4:26 PM * Tanya Mercado MD - 05/02/2024 12:23 PM EDT Images from the original note were not included. [facility] Office: [phone] Marco Delarosa DO, Dominic Gonzalez DO, Clifton [...] Ashley Schaffer DO, Cruzito Holloway MD, Alix Acosta,TOWER SUPERVISOR, Shefali Hills CNP, Ashley Baker, TOWER SUPERVISOR, Muna Brandon, CRESENCIO, Neida Mars, TOWER SUPERVISOR, Jigna De Dios, TOWER SUPERVISOR, Angelina Peguero, TOWER SUPERVISOR, Adwoa Lei TOWER SUPERVISOR, JOHN AsifC, JOHN TylerC, Jaz Castaneda,TOWER SUPERVISOR, Robert Huertas, TOWER SUPERVISOR, Vanessa Saleh, TOWER SUPERVISOR, Josefina Higgins, TOWER SUPERVISOR, Lissett Root, TOWER SUPERVISOR, Lu Cooley, TOWER SUPERVISOR [facility] IN-PATIENT SERVICE [facility] Progress Note 05/02/2024 12:23 PM Name: Francine Hobson Acct: [id number] Room: [facility] Day: 1 Admit Date: 05/01/2024 2:13 PM [...] change with defecation but did get worse withposition. Also feeling a tight band stretching in the upper quadrants of her abdomen. Abdomen is distended and does have tenderness to palpation. White count still elevated 22.8. Brief History: 38-year-old female past medical history of Crohn's disease, history of ileocecal resection, anxietydepression, vitamin D deficiency presents with abdominal pain. Concern for Crohn's with abscess. Colorectal surgery, GI, IR following patient. Underwent CT abdomen pelvis on 05/02/2024. Unfortunatelydue to multiple abscesses drainage not recommended per [...] smoking cigarettes. She has never used smokeless tobacco.She reports current alcohol use. She reports current drug use. Drug: Marijuana (D Hanis). Family History: History reviewed. No pertinent family history. Vitals: BP 101/66 Pulse 96 Temp 99 F (37.2 C) (Oral) Resp 16 Ht 1.689 m (5' 6.5 ) Wt 55.4 kg (122lb 2.2 oz) LMP 04/28/2024 SpO2 94% BMI [...] , PHART , PH , POCPCO2 , FQP4ASJ , PCO2 , POCPO2 , PO2ART , PO2 , POCHCO3 , LMK0YXW , HCO3 , NBEA , PBEA , BEART , BE , THGBART , THB , JZC4NQU , AGQK2CJR , V1XOSCGI , O2SAT , FIO2 Lab Results Component [...] ovarian probable benign cyst measuring 5.4 cm.Recommend follow- up pelvic ultrasound in 3-6 months. US NON OB TRANSVAGINAL Result Date: 05/01/2024 1. Right ovarian 5.5 cm simple cystic structure most compatible with dominant follicle. 2. Otherwise, unremarkable pelvic ultrasound. RECOMMENDATIONS: Pathology: Right ovarian probable benign cyst measuring 5.4 cm.Recommend follow- up pelvic ultrasound in 3-[address] ABDOMEN PELVIS W IV CONTRAST Additional Contrast? None Result Date: 05/01/2024 Findings compatible with active Crohn's disease with complex fluid collection associated with inflamed small bowel in the lower abdomen and pelvis and possible abscess, as described. Possible fistulaversus focal area of narrowing in the sigmoid [...] bedside. Tanya Mercado MD 05/02/2024 12:23 PM * Hemant Katz MD - 05/02/2024 6:13 AM EDT Colorectal Surgery: Daily Progress Note PATIENT NAME: [...] ovarian probable benign cyst measuring 5.4 cm.Recommend follow- up pelvic ultrasound in 3-6 months. US NON OB TRANSVAGINAL Result Date: 05/01/2024 1. Right ovarian 5.5 cm simple cystic structure most compatible with dominant follicle. 2. Otherwise, unremarkable pelvic ultrasound. RECOMMENDATIONS: Pathology: Right ovarian probable benign cyst measuring 5.4 cm.Recommend follow- up pelvic ultrasound in 3-[address] ABDOMEN PELVIS W IV CONTRAST Additional Contrast? None Result Date: 05/01/2024 Findings compatible with active Crohn's disease with complex fluid collection associated with inflamed small bowel in the lower abdomen and pelvis and possible abscess, as described. Possible fistulaversus focal area of narrowing in the sigmoid [...] History, physical exam, laboratory, and radiographic findings reviewedand discussed with attending. -IR evaluation for drainage [...] with the above. Hemant Katz Colorectal Surgery * Jodee Almeida [facility] - 05/01/2024 3:44 PM EDT [facility] Pharmacokinetic Monitoring Service - Vancomycin Francine Hobson is a 38 y.o. female starting on vancomycin therapy for intra- abdominal infection. Pharmacy consulted by Dr Andres for [...] RPH 05/01/2024 3:43 PM documented in this [facility] NotePROCEDURE: CT GUIDEDPELVIC FLUID NEEDLE PLACEMENT/ASPIRATION MODERATE CONSCIOUS SEDATION 05/03/2024 HISTORY: ORDERING SYSTEM PROVIDED HISTORY: Please perform CT guided IR aspiration of abdominal abscess TECHNOLOGIST PROVIDED HISTORY: Please perform CT guided IR aspiration of abdominal abscess Is the patient ?->No Reason for Exam: Pelvic abscess aspirate Multilobulated pelvic fluid collection, Crohn's disease SEDATION: Moderate sedation was ordered and supervised by the attending with physician [id number] monitoring. Medications were provided and recorded by Radiology nurses. DOSE: DOSE/DLP: 351.91 mGy-cm Dose modulation, iterative reconstruction, and/or weight based adjustment of the mA/kV was utilized to reduce the radiation dose to as low as reasonably achievable. TECHNIQUE/PROCEDURE DETAILS: Informed consent was obtained after a detailed explanation of the procedure including risks. [place] protocol was followed. Sterile gown, masks, hats, and gloves utilized for maximal sterile barrier. The patient was placed in the prone position on the CT couch. A delinquency prevention social worker scan was performed of the pelvis. The previously identified pelvic fluid was re-identified, and contrast could still be seen within the rectum/sigmoid colon. Moderate conscious sedation was initiated. A site was selected for drainage in the left perirectal region using a transgluteal approach. The skin was prepped and draped in sterile manner, and 1% lidocaine was utilized for local anesthetic. A 5 Maltese 9 Yueh needle sheath was advanced under [...] loss was minimal. COMPLICATIONS: None immediately apparent. [facility] RIS [id number] NotePROCEDURE: CT GUIDEDPELVIC FLUID NEEDLE PLACEMENT/ASPIRATION MODERATE CONSCIOUS SEDATION 05/03/2024 HISTORY: ORDERING SYSTEM PROVIDED HISTORY: Please perform CT guided IR aspiration of abdominal abscess TECHNOLOGIST PROVIDED HISTORY: Please perform CT guided IR aspiration of abdominal abscess Is the patient ?->No Reason for Exam: Pelvic abscess aspirate Multilobulated pelvic fluid collection, Crohn's disease SEDATION: Moderate sedation was ordered and supervised by the attending with physician [id number] monitoring. Medications were provided and recorded by Radiology nurses. DOSE: DOSE/DLP: 351.91 mGy-cm Dose modulation, iterative reconstruction, and/or weight based adjustment of the mA/kV was utilized to reduce the radiation dose to as low as reasonably achievable. TECHNIQUE/PROCEDURE DETAILS: Informed consent was obtained after a detailed explanation of the procedure including risks. [place] protocol was followed. Sterile gown, masks, hats, and gloves utilized for maximal sterile barrier. The patient was placed in the prone position on the CT couch. A delinquency prevention social worker scan was performed of the pelvis. The previously identified pelvic fluid was re-identified, and contrast could still be seen within the rectum/sigmoid colon. Moderate conscious sedation was initiated. A site was selected for drainage in the left perirectal region using a transgluteal approach. The skin was prepped and draped in sterile manner, and 1% lidocaine was utilized for local anesthetic. A 5 Maltese 9 Yueh needle sheath was advanced under [...] by: Jose Manuel Torre MD 05/04/24 [facility] History of Present illness Narrative* Ami Jeter, SEAM PRESS OPERATOR-TOWER SUPERVISOR - 04/22/2024 4:05 PM EDT Subjective: Patient ID: Francine Hobson is a [...] past medical history, past social history, past surgicalhistory and problem list. Review of Systems Constitutional: [...] Past Medical History: Diagnosis Date Crohn's disease ([facility]) History reviewed. No pertinent surgical history. Social [...] along with a worsening cough. Also developed afever. She has a history of Crohn's disease. Currently on prednisone but not taking any immune suppressant medications. She is ill-appearing in the clinic today with normal vital signs. Physical examis remarkable for frequent cough but is otherwise normal. Chest x- ray was obtained which were negative for acute cardiopulmonary pathology. High suspicion for upper respiratory tract etiology. Given her history of Crohn's and long-term prednisone use will start on Augmentin to cover any bacterial cause. If she can not tolerate p.o. fluids, her symptoms worsen, or her pain worsens she should go [facility] ER immediately for further evaluation and treatment [...] concerning symptoms of illness develop, follow up withyour primary care provider or go to the nearest Emergency Department for further care immediately. DAGOBERTO Hill 04/22/24 1705 [facility] Instructions* Patient Instructions* DAGOBERTO Hill - 04/22/2024 4:05 PM EDT Narrative & Impression PA and lateral chest, 2 views, dated 08/23/2023 at 4:44 PM INDICATION: Severe cough, fever. FINDINGS: No comparisons available. No airspace disease or edema. No effusions. The heart and mediastinal structures are within normal limits. IMPRESSION: No acute cardiopulmonary abnormality seen. * Attachments The following attachments cannot be sent through Care Everywhere. * Bacterial Upper Respiratory Infection, Adult (Slovenian) documented in [facility]St[facility] Hospital Discharge instructions* Discharge Instructions* Porfirio Cervantes MD - 11/22/2023 7:35 AM EDT You have been evaluated in the emergency department for abdominal pain, this is likely a flareup ofyour Crohn's. CT of your abdomen did show small bowel inflammation with some worsening of the partial bowel obstruction seen on prior imaging obtained in December 2022. Given started on a prednisone taper, please take as prescribed. Schedule a follow-up appointment with your metal bonding helper for further evaluation and treatment of your symptoms. Return to the emergency department immediately if you begin experiencing persistent nausea, vomiting, severe chest pain or shortness of breath, blood in stool. * Discharge Instr - WEN* Surjit Fernando RN - 11/22/2023 7:51 AM [...] List Diagnosis Code Crohn's disease with complication (HCC) K50.919 Isolation/Infection: Isolation No Isolation Patient Infection [...] MENTAL STATUS:} IV Access: { WEN IV ACCESS:077878613} Nursing Mobility/ADLs: Walking {CHP DME ADLs:395979034} Transfer {CHP DME ADLs:850029906} Bathing {CHP DME ADLs:332660256} Dressing {CHP DME ADLs:540004911} Toileting {CHP DME ADLs:934055619} Feeding {CHP DME ADLs:511367820} Steel Finisher {CHP DME ADLs:822187147} Med Delivery { WEN MED Delivery:257904287} Wound Care Documentation and Therapy: Elimination: Continence: Bowel: {YES / NO:} Bladder: {YES / NO:} Urinary Catheter: {Urinary Catheter:128665747} Colostomy/Ileostomy/Ileal Conduit: {YES / NO:} Date of Last BM: No intake or output data in the 24 hours ending 11/22/23 0751 No intake/output data recorded. Safety Concerns: { WEN Safety Concerns:727916656} Impairments/Disabilities: { WEN Impairments/Disabilities:781124965} Nutrition Therapy: Current Nutrition Therapy: { WEN Diet List:565712498} Routes of Feeding: {[facility] DME Other Feedings:366844823} Liquids: {Buffing Line Set Up Worker liquid thickness:64463} Daily Fluid Restriction: {CHP DME Yes amt example:582816119} Last Modified Barium Swallow with Video (Video Swallowing Test): {Done Not Done Date:} Treatments at the Time of Hospital Discharge: Respiratory Treatments: Oxygen Therapy: {Therapy; copd oxygen:11875} Ventilator: { CC Vent List:377180384} Rehab Therapies: {THERAPEUTIC INTERVENTION:8447663372} Weight Bearing Status/Restrictions: {[facility] Weight Bearin} Other Medical Equipment (for information only, NOT a DME order): {EQUIPMENT:694657392} Other Treatments: Patient's personal belongings (please select all that are sent with patient): {[facility] DME Belongings:688776255} RN SIGNATURE: {Esignature:761844237} CASE MANAGEMENT/SOCIAL WORK SECTION Inpatient Status Date: Readmission Risk Assessment Score: Readmission Risk Risk of Unplanned Readmission: 0 Discharging to Facility/ Agency Name: Address: Phone: Fax: Dialysis Facility (if applicable) Name: Address: Dialysis Schedule: Phone: Fax: Forge Tender/Electrical Laboratory Technician signature: {Esignature:604722548} PHYSICIAN SECTION Prognosis: {Prognosis:7591024998} Condition at Discharge: { Patient Condition:642334613} Rehab Potential (if transferring to Rehab): {Prognosis:6366776686} Recommended Labs or Other Treatments After Discharge: Physician Certification: I certify the above information and transfer of Francine Hobson is necessary for the continuing treatment of the diagnosis listed and that she requires {Admit to Appropriate Level of Care:67983} for {GREATER/LESS:833029077} 30 days. Update Admission H&P: {CHP DME Changes in HandP:793104528} PHYSICIAN SIGNATURE: {Esignature:677738438} documented in [facility] encounter[facility] History of Present illness Narrative* Marixa Barrientos, SEAM PRESS OPERATOR-TOWER SUPERVISOR - 08/18/2023 4:35 PM EST Subjective: Patient ID: Francine Hobson is a 37 y.o. female. Chief Complaint Patient presents with Abscess HPI This is a 37-year-old female that presents to the urgent care setting for evaluation of a red raised area to the left groin. The patient states that feels couple days she has had this red raised areato her left groin. She states that it is hard but it is become more painful. She states that she 1st noticed it about a week and a half ago but the pain started a couple of days ago. She had 1 on herright butt cheek that was lanced and drained in the past. The following portions of the patient's history were reviewed and updated as appropriate: allergies, current medications, past family history, past medical history, past social history, past surgicalhistory and problem list. Review of Systems Constitutional: Negative for chills and fever. HENT: Negative for sinus pressure and sneezing. Respiratory: Negative for cough and shortness of breath. Cardiovascular: Negative for chest pain and palpitations. Gastrointestinal: Negative for abdominal pain, nausea and vomiting. Genitourinary: Negative for dysuria. Musculoskeletal: Negative for gait problem. Skin: Positive for wound. Past Medical History: Diagnosis Date Crohn's disease ([facility]) History reviewed. No pertinent surgical history. Social [...] If you do not have a primary carephysician, please consider returning to urgent care or [...] use caution until you understand how each medicationaffects you individually. If you have been recommended aucy-cwq-qmbgaju medications please use those medications as indicated [...] concerning symptoms of illness develop, follow up withyour primary care provider or go to the nearest Emergency Department for further care immediately. DAGOBERTO Mackenzie 08/18/23 1837 documented in this encounterKindred HealthcareConnectipity [id number] Instructions* Patient Instructions* DAGOBERTO Mackenzie - 08/18/2023 4:35 PM EST Please consider immediate medical re-evaluation from a healthcare provider for any worsening, concerning, or new symptoms. Please contact your primary care physician's office within the next 1-2 business days to share the information that has been discussed with you during today's visit. If you do not have a primary carephysician, please consider returning to urgent care or [...] use caution until you understand how each medicationaffects you individually. If you have been recommended ommo-tqy-vuwopyv medications please use those medications as indicated on their packaging detail. * Attachments The following attachments cannot be sent through Care Everywhere. * Epidermal Cyst Discharge Instructions (Slovenian) documented in this encounterKindred HealthcareScrip-t Formerly [facility] [id number] Evaluation note* Encounter Date Diagnosis Assessment Notes Treatment Notes Treatment Clinical Notes May, Folliculitis (ICD-10 - L73.9) Discussed that clinical histroy and exam seem consistent with folliculitis. Discussed possiblity ofHSV unfortunately however there are no open lesions [...] furher outbreaks follow up AVINASH for culture. May,History of exposure to blood or body fluid (ICD-10 - Z77.21) May,andida infection (ICD-10 - B37.9)antibiotic induced yeast infection [facility] 11-09-2023 Evaluation note* Encounter Date Diagnosis Assessment Notes Treatment Notes Treatment Clinical Notes May, Crohn disease (ICD-10 - K50.90) PATIENT HAS RECENTLY STARTED RINVOQ. SHE HAS FINISHED HER 8 WEEK STARTER DOSE AND IS NOW ON THE MAINTANCE DOSE. [facility] Other 11-01-2023 Evaluation note* Encounter Date Diagnosis Assessment Notes Treatment Notes Treatment Clinical Notes May, UTI (urinary tract infection) (I CD-10 - N39.0) UA consistent with UTI, will treat with oral antibiotic. Will send culture and adjust abx as necessary. To follow up if no improvement or worsening symptoms. [facility] 10-06-2023 Evaluation note* Encounter Date Diagnosis Assessment Notes Treatment Notes Treatment Clinical Notes Apr, Right ankle sprain (ICD-10 - S93 .401A) 1 week out from inversion injury, overall improving pattern. Encouraged continued ice, rest, elevation, can use compression with neil bandage. Can trial voltaren gel OTC as she does not tolerate NSAIDs due to Crohn's disease. If not improving in 1-2 weeks recommend f/u with ortho Apr,Major depression (ICD-10 - F32.9)Uncontrolled on current dose of citalopram, will increase to 40mg daily at this point. Apr,anic attacks (ICD-10 - F41.0)Can trial propranolol PRN panic attacks Apr,astroesophageal reflux disease with esophagitis without hemorrhage (ICD-10 - K21.00) [facility] 09-05-2023 Evaluation note* Encounter Date Diagnosis Assessment Notes Treatment Notes Treatment Clinical Notes Mar, Crohn disease (ICD-10 - K50.90) [facility] 08-23-2023 Evaluation note* Encounter Date Diagnosis Assessment Notes Treatment Notes Treatment Clinical Notes Feb, Postoperative visit (ICD-10 - Z4 8.89) Francine is here now 1 week s/p left shoulder lipoma excision. She is doing well. Physical exam and lab report has been reviewed with her. Benign lipoma. She can advance activities as tolerated for now.Home exercise program given. Follow-up as needed. Feb,OtherSee orders for this visit as documented in the electronic medical record. [facility] 08-22-2023 Evaluation note* Encounter Date Diagnosis Assessment Notes Treatment Notes Treatment Clinical Notes Feb, Sore throat (ICD-10 - J02.9) Feb,astroesophageal reflux disease with esophagitis without hemorrhage (ICD-10 - K21.00)She presents today with 5 day hx of [...] GI sooner. She agrees with plan today. [facility] 07-03-2023 Evaluation note* Encounter Date Diagnosis Assessment Notes Treatment Notes Treatment Clinical Notes Jan, Major depression (ICD-10 - F32.9 ) [facility] 06-29-2023 [facility]* Encounter Date Diagnosis Assessment Notes Treatment Notes Treatment Clinical Notes Dec, Crohn disease (ICD-10 - K50.90) Prednisone 40 mg daily for 4 weeks, then taper down by [address] enterography in 6 months-in recall Will arrange for a colonoscopy Start PPW for Humira Rto 8 weeks Dec,bdominal pain (ICD-10 - R10.9) Dec,loating (ICD-10 - R14.0) Dec,Weight loss (ICD-10 - R63.4) Dec,iarrhea (ICD-10 - R19.7) [facility] 06-21-2023 Evaluation note* Encounter Date Diagnosis Assessment Notes Treatment Notes Treatment Clinical Notes Dec, Crohn disease (ICD-10 - K50.90) [facility] 06-14-2023 Evaluation note* Encounter Date Diagnosis Assessment Notes Treatment Notes Treatment Clinical Notes Dec, Acute pain of left shoulder (ICD -10 - M25.512) Dec,Mass of joint of left shoulder (ICD-10 - M25.812)Francine presents with left shoulder mass. At this juncture we have discussed the findings and diagnosis as well as personally reviewed appropriate imaging and performed interpretation of related testing and examination with the patient in office today. Prior medical notes from Dr. Brown's and history have been reviewed. At this time I would recommend MRI of the left shoulder to evaluate this lesion.We will plan for follow-up after MRI is [...] surgical treatment. Patient given MRI information sheet. Dec,Injury of left hand, initial encounter (ICD-10 - S69.92XA)Francine also has a left middle finger injury. She had x-rays done at [facility] which are unavailable for review but she said was negative for fracture. She is in a splint. We discussed gentle range of motion's. Recheck at follow-up Advised patient to come out of splint to work on range of motion exercises. We call revaluate at her follow up if she continues to have pain Dec,OtherSee orders for this visit as documented in the electronic medical record. [facility] 06-05-2023 Evaluation note* Encounter Date Diagnosis [...] worsening symptoms or inability to take PO Dec,Shoulder mass (ICD-10 - R22.30)Subcutaneous mass of shoulder, ?cyst, will refer to orthopedic surgery for evaluation Dec,idney lesion (ICD-10 - N28.9)Incidental finding on CT abd/pelvis, will obtain u/s for further characterization Dec,Major depression (ICD-10 - F32.9)Recently restarted Celexa 10mg daily, will recheck symptoms at f/u appt in 6 weeks [facility] 04-04-2023 NoteOPERATIVE NOTE OPERATION DATE: 10/06/2022 [...] to the recovery room in good condition.[id number] History of Present illness Narrative* Francine Guzman MSW - 11/19/2020 10:04 AM EDT [facility] f/u call to pt re: last appointment over 1 month ago. No answer, left vm inquiring if pt wishesto reschedule last cancelled appointment (10/31/20) to please call this P directly by 12/03/20 (2wk from this call) or pts Behavioral Health Case Management Episode of Care will be closed. Informed ptthey can reopen this episode in the future if needed by contacting this BHP or PCP. documented in this [id number] History of Present illness Narrative* Abdiel Smith MD - 10/30/2020 6:03 PM EDT * Francine Guzman MSW - 10/30/2020 4:06 PM EDT Subsequent Month for Francine Hobson participation in the Behavioral Health Integration Program. Dx: anxiety; depression, unspecified Met face to face with them to discuss their anxiety and depression. Francine Hobson is focused on coping skills and emotional regulation. Psychiatric Combatant Diver Qualified reviewed the chart with recommendations. Total minutes spent this month: 58 documented in this encounterOhioHealthEvaluation + Plan note No data available for this section [facility] Evaluation note* Diagnosis Crohn's disease of small intestine without complication (HCC)- Primary documented in this encounter [facility] note* Diagnosis Anxiety- Primary Anxiety state, unspecified Depression, unspecified depression type documented in this encounter [facility] noteNo assessment information [facility] Work Phone: Evaluation noteNoBeckerSmith Medical Other Evaluation noteNo InformationNoCar[employer] Other Evaluation note* Diagnosis Crohn's disease with complication, unspecified gastrointestinal tract location (HCC)- Primary documented in this encounter [employer] note* Diagnosis Intra-abdominal abscess (HCC)- Primary Peritoneal [...] with complication (HCC) [facility] Diagnosis Crohn's disease of small intestine with complication (HCC)- Primary Regional enteritis of small intestine Crohn's disease of small and large intestines with complication (HCC) documented in this encounter [facility] note* Diagnosis Crohn's colitis, unspecified complication (HCC)- [...] C-reactive protein (CRP) documented in this encounter [facility] note* Diagnosis Partial small bowel obstruction (HCC)- [...] difficulties and mismanagement [facility] Diagnosis Infected cyst of skin- Primary documented in this encounter [facility]* Diagnosis Acute cough- Primary Upper respiratory tract infection, unspecified type Acute cough documented in this encounter [facility]* Diagnosis Partial small bowel obstruction [...] influencing health status documented in this encounter [facility]* Diagnosis Partial small bowel obstruction (HCC)- [...] axillary vein of right upper extremity (HCC) - Primary Acute deep vein thrombosis (DVT) of brachial vein of right upper extremity (HCC) documented in this encounter [facility]* Diagnosis Partial small bowel obstruction (HCC)- [...] colon in continuity documented [facility] this encounter [facility]* Diagnosis Partial small bowel obstruction (HCC)- [...] encounter (HCC)- Primary documented in this encounter [facility]* Diagnosis Partial small bowel obstruction (HCC)- [...] with large intestine documented [facility] this encounter [facility]* Diagnosis Partial small bowel obstruction (HCC)- [...] appliance and device documented in this encounter [facility]* Diagnosis Partial small bowel obstruction (HCC)- [...] of brachial vein of right upper extremity ([facility]) Anticoagulation management encounter Encounter for therapeutic drug monitoring Feeding difficulties- Primary Feeding difficulties and mismanagement documented [facility] this encounter [facility]* Diagnosis Partial small bowel obstruction (HCC)- [...] difficulties and mismanagement documented [facility] this encounter [facility]* Diagnosis Partial small bowel obstruction (HCC)- [...] upper extremity (HCC) documented in this encounter [facility]* Diagnosis Partial small bowel obstruction (HCC)- [...] complication (HCC)- Primary documented in this encounter [facility]* Diagnosis Partial small bowel obstruction (HCC)- [...] upper extremity (HCC) documented [facility] this encounter [facility]* Diagnosis Partial small bowel obstruction (HCC)- [...] involving digestive system documented in this encounter [facility]* Diagnosis Partial small bowel obstruction (HCC)- [...] complication (HCC)- Primary documented in this encounter [facility]* Diagnosis Partial small bowel obstruction (HCC)- [...] appliance and device documented in this encounter [facility]* Diagnosis Partial small bowel obstruction (HCC)- [...] with complication (HCC) documented in this encounter [facility]* Diagnosis Partial small bowel obstruction (HCC)- [...] and 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)(female) documented in this encounter [facility]* Diagnosis Partial small bowel obstruction (HCC)- [...] with complication (HCC) documented [facility] this encounter [facility]* Diagnosis Partial small bowel obstruction (HCC)- [...] with complication (HCC) documented in this encounter [facility]* Diagnosis Partial small bowel obstruction (HCC)- [...] unspecified genitourinary condition documented in this encounter [facility]* Diagnosis Partial small bowel obstruction (HCC)- [...] with complication (HCC) documented in this encounter [facility]* Diagnosis Partial small bowel obstruction (HCC)- [...] with complication (HCC) documented in this encounter [facility]* Diagnosis Partial small bowel obstruction (HCC)- [...] with complication (HCC) documented in this encounter [facility]* Diagnosis Partial small bowel obstruction (HCC)- [...] with complication (HCC) documented in this encounter [facility]* Diagnosis Partial small bowel obstruction (HCC)- [...] with complication (HCC) documented in this encounter [facility]* Diagnosis Partial small bowel obstruction (HCC)- [...] with complication (HCC) documented in this encounter [facility]* Diagnosis Partial small bowel obstruction (HCC)- [...] with complication (HCC) documented in this encounter [facility]* Diagnosis Partial small bowel obstruction (HCC)- [...] with complication (HCC) documented in this encounter [facility]* Diagnosis Partial small bowel obstruction (HCC)- [...] with complication (HCC) documented in this encounter [facility]* Diagnosis Partial small bowel obstruction (HCC)- [...] with complication (HCC) documented in this encounter [facility]* Diagnosis Partial small bowel obstruction (HCC)- [...] with complication (HCC) documented in this encounter [facility]* Diagnosis Partial small bowel obstruction (HCC)- [...] with complication (HCC) documented in this encounter [facility]* Diagnosis Partial small bowel obstruction (HCC)- [...] with complication (HCC) documented in this encounter [facility]* Diagnosis Partial small bowel obstruction (HCC)- [...] with complication (HCC) documented in this encounter [facility]* Diagnosis Partial small bowel obstruction (HCC)- [...] with complication (HCC) documented [facility] this encounter [facility]* Diagnosis Partial small bowel obstruction (HCC)- [...] with complication (HCC) documented in this encounter [facility]* Diagnosis Partial small bowel obstruction (HCC)- [...] with complication (HCC) [facility] Diagnosis Partial small bowel obstruction (HCC)- [...] with complication (HCC) [facility] Diagnosis Partial small bowel obstruction (HCC)- [...] with complication (HCC) [facility] Diagnosis Partial small bowel obstruction (HCC)- [...] with complication (HCC) [facility] Diagnosis Partial small bowel obstruction (HCC)- [...] with complication (HCC) [facility] encounter [facility]* Diagnosis Partial small bowel obstruction (HCC)- [...] with complication (HCC) documented in this encounter [facility] note* Diagnosis Partial small bowel obstruction (HCC)- [...] with large intestine [facility] Diagnosis Partial small bowel obstruction (HCC)- [...] Leukocytosis, unspecified type [facility] Diagnosis Partial small bowel obstruction (HCC)- [...] unspecified constipation type [facility] Diagnosis Partial small bowel obstruction (HCC)- [...] of brachial vein of right upper extremity ([facility]) Anticoagulation management encounter Encounter for therapeutic drug [...] therapeutic drug monitoring [facility] Diagnosis Partial small bowel obstruction (HCC)- [...] Leukocytosis, unspecified type [facility] Diagnosis Partial small bowel obstruction (HCC)- [...] location (HCC)- Primary [facility] Diagnosis Partial small bowel obstruction (HCC)- [...] unspecified type- Primary [facility]* Diagnosis Partial small bowel obstruction (HCC)- [...] (HCC) Other fatigue [facility]* Diagnosis Partial small bowel obstruction (HCC)- [...] esophagitis Esophageal reflux documented in this encounter [facility] Author Jennifer [facility] December 31, 2022 1:56pmNote Date/TimeJune 2022 1:56pm[place] [address] Gastroenterology H&P Signed Patient: Francine Hobson MR#: [id number] : 1985 Acct:[id number] Age/Sex: 37 / F Adm Date: 3 Loc: Room: Type: [facility] Attending Dr: Jennifer Brody MD Copies to: Dalia Apple, DO Jennifer Brody MD~ Date of Service: 12/31/2022 HISTORY & PHYSICAL: Patient's history with special attention to the cardiovascular, pulmonary systems and the current problem was reviewed with the patient immediately prior to the procedure. Present medications and doses reviewed in the EMR. Allergies and pertinent laboratory tests were also re viewedat this time in the EMR. The physical [...] M.D. Documented By: Jennifer Brody MD 12/31/22 9378 Signed By: <Electronically signed by Jennifer Brody MD> 12/31/22 8780 [facility] Work Phone: History general Narrative - Reported* Type Description Date Medical History Crohn's disease Medical HistorydepressionMedical HistoryanxietySurgical HistorytonsilsSurgical Historywisdom teethSurgical Historyc section x 1Surgical Historybowel resection Surgical Historynose sxHospitalization Historysee aboveHospitalization History child birthHospitalization HistoryMarion--partial small bowel obstruction 11/24- [facility] Other History general Narrative - ReportedNoBeckerSmith Medical Other Hisjwov general Narrative - ReportedNoBeckerSmith Medical Other Hisoecz general Narrative - Reported* Type Description Date Medical History Crohn's disease Medical HistorydepressionMedical HistoryanxietySurgical HistorytonsilsSurgical Historywisdom teethSurgical Historyc section x 1Surgical Historybowel resection Surgical Historynose sxSurgical Historytumor removed from left shoulder02/2023 Hospitalization Historysee aboveHospitalization Historychild Hospitalization HistoryMar[place]--partial small bowel obstruction11/24- [facility] Other Hospital Discharge instructions No data available for this section [facility] Discharge instructions Additional Instructions [...] -Follow up in the office -Office number [phone]. [facility] Work Phone: Hospital Discharge instructions Additional Instructions [...] prescribed. You may take Motrin or Tylenol xuka-byl-wystkml if you wish. Follow-up as scheduled for recheck Dr[facility] [address] [facility] [employer] [place], [place] [address] [phone] Children'S Hospital Work Phone: Progress note No data available for this section [facility] Reason for referral (narrative)No reason for referral information availablePark[facility] Work Phone: Reason for visit Narrative* Diagnostic Procedure Only (Routine) - ClosedSpecialtyDiagnoses / ProceduresReferred By ContactReferred To ContactXR IMAGING Diagnoses Crohn's disease of small and large intestines with complication (HCC) Procedures DXA-AXIAL SKELETON DXA BONE DENSITY STUDY 1/> SITES AXIAL Aracely Jay PA-C [address] [place] [address] Phone: tel: fax: XR IMAGING [place] [address] Referral IDStatusReasonStshabbona DateExpiration DateVisits RequestedVisits [id number] Auto-Generated Referral / [facility] for visit Narrative* [place] Prior Authorization (Routine) - AuthorizedSpecialtyDiagnoses / ProceduresReferred By ContactReferred To Contact Diagnoses Crohn's disease of small and large intestines with complication (HCC) Procedures INJECTION,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 order CBC and Differential. Procedure Abnormality Status --------- ------ CBC Auto Differential[[id number]] Please view results for these tests on [...] adnexal cyst, likely a dominant ovarian follicle. BioVidria/Bloxr Workstation ID: [id number] Procedures: Procedures ED Course/ [...] . . Rahul Crowder PA-C ED Physician Route Sales Delivery [facility] Rahul Crowder PA-C 05/31/20 0111 * Joseluis Aragon RN - 05/30/2020 6:03 PM EST Started having flare up sx last week started on baby food to reduce sx and see if it would pass. 3 days ago severe abd pain cramping diarrhea and vomiting. Unable to keep water down at this time. * Neela Mayberry RN - 05/30/2020 5:50 PM EST Patient reports that she has a history of Chron's and is having a flare up. documented in this encounter Care Teams (unrecognized sec tion and content) Team Status: Active Member Role/Relationship Status Dates Dalia Apple DO Primary Care Provider Active Team Status: Inactive Member Role/Relationship Status Dates Dalia Apple DO Primary Care Provider Active Start: April 30, 2025 End: April 30, 2025Glbrandon Apple DOAttending ProviderActiveStart: April 30, 2025 End: April 30, 2025Team MemberRelationshipSpecialtyStart DateEnd Date Berna Mike DO [address] [place] [address] Home Parenteral Nutrition ProviderGastroenterology08/08/24Team MemberRelationship SpecialtyStart DateEnd Date Dalia Apple MD [address] [place] [address] PCP - GeneralFamily Medicine12/27/23Team MemberRelationshipSpecialtyStart DateEnd Date No Pcp, [place] [address] PCP - [facility]07/05/21 Team Status: Inactive Member Role Status Dates Maru Maguire MD Attending Provider Active Star t: August 14, 2024 End: August 14, 2024Team MemberRelationshipSpecialtyStart DateEnd Date Ambika, Dalia Moreau DO [address] [facility] [address] [place] [id number] PCP - [facility]07/22/24 Team Status: Active Member Role Status Dates Dalia Apple , DO Primary Care Provider Active Team Status: Active Member Role Status Dates Dalia Apple , Primary Care Provider Active Start: December 21, 2023 Rogelio Foley ProviderActiveStart: December 21, 2023 Team Status: Inactive Member Role Status Dates Dalia Apple DO Primary Care Provider Active Start: January 19, 2024 End: January 19, 2024ImaAlexus Jimenez ProviderActiveStart: January 19, 2024 End: January 19, 2024 Team Status: Active Member Role Status Dates Dalia Apple , Primary Care Provider Active Team Status: Inactive Member Role Status Dates PHYSICIAN NO FAMILY Primary Care Provider Active Felisa Metcalf ProviderActive Team Status: Inactive Member Role Status Dates Dalia Apple DO Primary Care Provider, Attending Latoya gregory Active Team Status: Inactive Member Role Status Dates Dalia Apple DO Primary Care Provider Active Willi Arredondo ProviderActive Team Status: Active Member Role Status Dates PHYSICIAN NO FAMILY Primary Care Provider Active Team Status: Inactive Member Role Status Dates PHYSICIAN NO FAMILY Primary Care Provider Active Ean Jacques DOEmergentimbo ProviderActive Goals (unrecognized section and content) Goals may be documented in a n alternate section Ordered Prescriptions (unrec ognized section and content) PrescriptionSigDispensedRefillsStart DateEnd Date ondansetron (ZOFRAN-ODT) 4 MG disintegrating tablet Take 1 tablet by mouth 3 times daily as needed for Nausea or Vomiting 21 tablet predniSONE (DELTASONE) 20 MG tablet Take 2 tablets by mouth daily for 3 days, THEN 1.5 tablets daily for 3 days, THEN 1 tablet daily for 3 days, THEN 0.5 tablets daily for 3 days. 15 tablet /rescriptionSigDispensedRefillsStart DateEnd Date ondansetron (ZOFRAN) 4 MG tablet Take 1 tablet by mouth every 12 hours as needed for Nausea or Vomiting 10 tablet 05/09/2024 docusate sodium (COLACE) 100 MG capsule Take 1 capsule by mouth 2 times daily for 5 days 10 capsule oxyCODONE-acetaminophen (PERCOCET) 5-325 MG per tablet Indications:Crohn's disease of colon with abscess (HCC),Intra-abdominal abscess (HCC),Crohn's colitis, other complication (HCC)Take 1 tablet by mouth every 6 hours as needed for Pain for up to 5 days. Intended supply: 3 days. Take lowest dose possible to manage pain Max Daily Amount: 4 tablets 12 tablet predniSONE (DELTASONE) 20 MG tablet Take 1 tablet by mouth 2 times daily for 5 days 10 tablet amoxicillin-clavulanate (AUGMENTIN) 875-125 MG per tablet Take 1 tablet by mouth 2 times daily for 14 days 28 tablet pantoprazole (PROTONIX) 40 MG tablet Take 1 tablet by mouth every morning (before breakfast) 30 tablet dicyclomine (BENTYL) 10 MG capsule Take 1 capsule by mouth 3 times daily 120 capsule amitriptyline (ELAVIL) 25 MG tablet Take 1 tablet by mouth nightly 30 tablet rescriptionSigDispensedRefillsStart DateEnd Date midodrine (PROAMATINE) 10 MG tablet Take 1 tablet by mouth 3 times daily (with meals) 90 tablet ertapenem (INVANZ) infusion Infuse 1,000 mg intravenously every 24 hours for 28 days 28 days then get a repeat CTA ;look for resolution of the abscess Cbc diff creat weekly - no ;line draws 28 g / Scheduled Active and Recently Administ ered Medications (unrecognized section and content) Medication Order// dexAMETHasone (DECADRON) injection 4 mg (COMPLETED) 4 mg, IntraVENous, ONCE, On Wed11/22/23 at 0515, For 1 dose * 0508 (Given - Provider: Sven Hernandez, WAQAS) famotidine (PEPCID) injection 20 mg (COMPLETED) 20 mg, IntraVENous, NOW, 1 dose, On Wed11/22/23 at 0515, IV Push over minimum of 2 minutes - Dilutewith 10 mL NS * 0509 (Given - Provider: Sven Hernandez, WAQAS) fentaNYL (SUBLIMAZE) injection 50 mcg (COMPLETED) 50 mcg, IntraVENous, ONCE, 1 dose, On Wed11/22/23 at 0515, If oral and IV narcotics ordered, use oral first and only use IV if oral is ineffective or cannot take oral. Do Not give oral and IV within 1 hour of each other unless specifically ordered. * 0508 (Given - Provider: Sven Hernandez, WAQAS) lactated ringers bolus 1,000 mL (COMPLETED) 1,000 mL, IntraVENous, at 1,000 mL/hr, Administer over 60 Minutes, ONCE, On Wed11/22/23 at 0545, For 1 dose * 0546 (New Bag - Provider: Sven Hernandez, WAQAS) * 0650 (Stopped - Provider: Sven Hernandez, WAQAS) ondansetron (ZOFRAN) injection 4 mg (COMPLETED) 4 mg, IntraVENous, ONCE, 1 dose, On Wed11/22/23 at 0500 * 0456 (Given - Provider: Sven Hernandez, WAQAS) Medication Order// iopamidol (ISOVUE-370) 76 % injection 75 mL (COMPLETED) 75 mL, IntraVENous, IMG ONCE PRN, 1 dose, Starting on Wed11/22/23 at 0600, Until Wed11/22/23 at 0630, Other * 0630 (Given - Provider: Nigel Pat) ondansetron (ZOFRAN) injection 4 mg 4 mg, IntraVENous, PRN, Starting on Wed11/22/23 at 0502, Until Discontinued, Nausea, Vomiting Medication Order//11/2023 amitriptyline (ELAVIL) tablet 25 mg 25 mg, Oral, NIGHTLY, First dose on Wed05/07/24 at 2100, Until Discontinued * 2040 (Given - Provider: Edil Castellanos RN) * 2050 (Given - Provider: Oniel Marcos, WAQAS) * 2100 (Due) citalopram (CELEXA) tablet 40 mg 40 mg, Oral, DAILY, First dose on Wed05/01/24 at 2100, Until Discontinued * 0748 (Given - Provider: Ami Plaza RN) * 0950 (Given - Provider: Bernadette Reece) * 0821 (Given - Provider: Angelina Silver) dicyclomine (BENTYL) capsule 10 mg 10 mg, Oral, 3 TIMES DAILY, First dose (after last modification) on Wed05/07/24 at 1030, Until Discontinued * 1126 (Given - Provider: Ami Plaza RN) * 1446 (Given - Provider: Ami Plaza RN) * 2040 (Given - Provider: Edil Castellanos RN) * 0953 (Given - Provider: Bernadette Reece) * 1414 (Given - Provider: Marixa Jha RN) * 2050 (Given - Provider: Oniel Marcos RN) * 0821 (Given - Provider: Angelina Silver) * 1323 (Given - Provider: Ami Peña, WAQAS) * 2100 (Due) iron sucrose (VENOFER) 200 mg in sodium chloride 0.9 % 100 mL IVPB 200 mg, IntraVENous, at 440 mL/hr, Administer over 15 Minutes, EVERY 24 HOURS, First dose on Wed05/08/24 at 1300, For 3 doses * 1413 (New Bag - Provider: Marixa Jha RN) * 1440 (Stopped - Provider: Marixa Jha RN) * 1408 (New Bag - Provider: Ami Peña RN) * 1449 (Stopped - Provider: Naomi Navarro RN) methylPREDNISolone sodium succ (SOLU-MEDROL) 40 mg in sterile water 1 mL injection 40 mg, IntraVENous, DAILY, First dose on Wed05/09/24 at 1500, Reconstitute each 40 mg vial with 1 mL of diluent. * 1448 (Given - Provider: Ami Peña RN) pantoprazole (PROTONIX) tablet 40 mg 40 mg, Oral, DAILY BEFORE BREAKFAST, First dose on Wed05/07/24 at 0700, Until Discontinued, Do not crush or break. * 0748 (Given - Provider: Ami Plaza RN) * 0502 (Given - Provider: Edil Castellanos RN) * 0521 (Given - Provider: Oniel Marcos RN) piperacillin-tazobactam (ZOSYN) 3375 mg in dextrose 50 mL IVPB (premix) 3,375 mg, IntraVENous, EVERY 8 HOURS, First dose (after last reorder) on Wed05/01/24 at 2200, Until Discontinued, Antimicrobial Indications: Intra-Abdominal Infection * 0130 (New Bag - Provider: Christianne Gill RN) * 0551 (Stopped - Provider: Christianne Gill RN) * 0854 (New Bag - Provider: Ami Plaza RN) * 1119 (Stopped - Provider: Ami Plaza RN) * 1254 (Stopped - Provider: Ami Plaza RN) * 1717 (New Bag - Provider: Ami Plaza RN) * 1852 (Rate/Dose Verify - Provider: Ami Plaza RN) * 2117 (Stopped - Provider: Edil Castellanos RN) * 0204 (New Bag - Provider: Edil Castellanos RN) * 0458 (Rate/Dose Verify - Provider: Edil Castellanos RN) * 0604 (Stopped - Provider: Edil Castellanos RN) * 0958 (New Bag - Provider: Bernadette Reece) * 1401 (Stopped - Provider: Marixa Jha RN) * 1701 (New Bag - Provider: Marixa Jha RN) * 2102 (Stopped - Provider: Oniel Marcos RN) * 0155 (New Bag - Provider: Oniel Marcos RN) * 0557 (Stopped - Provider: Oniel Marcos RN) * 0935 (New Bag - Provider: Angelina Silver) * 1410 (Stopped - Provider: Ami Peña RN) * 1730 (Due) sodium chloride flush 0.9 % injection [...] non-viscous solutions use: Peripheral IV = 5 mLMidline or Central Line = 10 mL/lumen For viscous solutions (i.e. blood components, parenteral nutrition, contrast media, or after obtaining blood sample) use: Peripheral IV = 10 mL Midline or Central Line = 20 mL/lumen * 0749 (Not Given - Provider: Ami Plaza RN - Reason: IV Fluid Infusing) * 2044 (Not Given - Provider: Edil Castellanos RN - Reason: IV Fluid Infusing) * 0749 (Given - Provider: Marixa Jha RN) * 2005 (Given - Provider: Oniel Marcos RN) * 0823 (Given - Provider: Angelina Silver) * 2100 (Due) vitamin B-12 (CYANOCOBALAMIN) tablet 1,000 mcg 1,000 mcg, Oral, DAILY, 7 doses, First dose on Wed05/08/24 at 1300, Last dose on Wed05/14/24 at 0900 * 1413 (Given - Provider: Marixa Jha RN) * 0823 (Given - Provider: Angelina Silver) Medication Order//11/2023 0.9 % sodium chloride infusion (CANCELED) IntraVENous, at 50 mL/hr, CONTINUOUS, Starting on Wed05/01/24 at 2100 * 0145 (New Bag - Provider: Christianne Gill RN) * 0153 (Restarted - Provider: Christianne Gill RN) * 1852 (Rate/Dose Verify - Provider: Ami Plaza RN) * 2044 (New Bag - Provider: Edil Castellanos RN) * 0458 (Rate/Dose Verify - Provider: Edil Castellanos, WAQAS) * 1717 (Stopped - Provider: Naomi Navarro, WAQAS) Medication Order/ 0.9 % sodium chloride infusion IntraVENous, at 5-250 mL/hr, PRN, if patient receiving piggyback infusions and maintenance fluids are not ordered OR KVO fluids to protect IV site / prevent frequent line interruptions/ long duration, Starting on Wed05/01/24 at 2049, For piggyback infusion, administer at same rate as piggyback fora total of 25 mL. Enter 25 mL into dose field and piggyback rate into rate field of order. If piggyback is infusing at a rate less than 100 mL/hr, enter 25 mL into dose field and 100 mL/hr into rate field of order. For KVO fluids, enter rate of 20 mL/hr or less into rate field of order. * 0956 (New Bag - Provider: Bernadette Reece) * 171 (Stopped - Provider: Naomi Navarro RN) acetaminophen (TYLENOL) suppository 650 mg(Linked Group 1) 650 mg, Rectal, EVERY 6 HOURS PRN, Starting on Wed05/01/24 at 2050, Until Discontinued, Pain Mild (1-3), Fever, For [...] 1021, Until Discontinued, Anxiety, Agitation, Muscle spasms * 2040 (Given - Provider: Edil Castellanos RN) * 1127 (Given - Provider: Marixa Jha, WAQAS) * 2049 (Given - Provider: Oniel Marcos, WAQAS) * 1214 (Given - Provider: Angelina Silver) fentaNYL (SUBLIMAZE) injection 75 mcg 75 mcg, IntraVENous, EVERY 2 HOURS PRN, Starting on Wed05/01/24 at 2103, Until Discontinued, Pain Moderate (4-6), Pain Severe (7-10), If oral and IV narcotics ordered, use oral first and only use IVif oral is ineffective or cannot take oral. Do Not give oral and IV within 1 hour of each other unless specifically ordered. * 0201 (Given - Provider: Christianne Gill RN) * 0556 (Given - Provider: Christianne Gill RN) * 0903 (Given - Provider: Ami Plaza RN) * 1126 (Given - Provider: Ami Plaza RN) * 1508 (Given - Provider: Ami Plaza RN) * 1816 (Given - Provider: Ami Plaza RN) * 204 (Given - Provider: Edil Castellanos RN) * 0206 (Given - Provider: Edil Castellanos RN) * 0452 (Given - Provider: Edil Castellanos RN) * 0747 (Given - Provider: Marixa Jha, WAQAS) * 1026 (Given - Provider: Marixa Jha, WAQAS) * 1418 (Given - Provider: Marixa Jah, WAQAS) * 1657 (Given - Provider: Marixa Jha, WAQAS) * 2000 (Given - Provider: Oniel Marcos, WAQAS) * 2333 (Given - Provider: Oniel Marcos, WAQAS) * 0239 (Given - Provider: Oniel Marcos, WAQAS) * 0522 (Given - Provider: Oniel Marcos, WAQAS) * 0822 (Given - Provider: Angelina Silver) * 1213 (Given - Provider: Angelina Silver) * 1448 (Given - Provider: Ami Peña RN) LORazepam (ATIVAN) injection 0.5 mg 0.5 mg, IntraVENous, EVERY 8 HOURS PRN, Starting on Wed05/01/24 at 6, Until Discontinued, Anxiety, Immediately prior to intravenous use, lorazepam Injection must be diluted with at least an equalvolume of compatible solution (NS or D5W). ondansetron (ZOFRAN) injection 4 mg(Linked Group 2) 4 mg, IntraVENous, EVERY 6 HOURS PRN, Starting on Wed05/01/24 at 2049, Until Discontinued, Nausea,Vomiting, Administer if oral route cannot be used. * 0854 (Given - Provider: Ami Plzaa RN) * 1816 (Given - Provider: Ami Plaza, WAQAS) * 1459 (See Alternative - Provider: Ami Peña RN) ondansetron (ZOFRAN-ODT) disintegrating tablet 4 mg(Linked Group 2) 4 mg, Oral, EVERY 8 HOURS PRN, Starting on Wed05/01/24 at 0, Until Discontinued, Nausea, Vomiting * 0854 (See Alternative - Provider: Ami Plaza RN) * 1816 (See Alternative - Provider: Ami Plaza, WAQAS) * 1459 (Given - Provider: Ami Peña, RN) polyethylene glycol (GLYCOLAX) packet 17 g 17 g, Oral, DAILY PRN, Starting on Wed05/01/24 at 2049, Until Discontinued, Constipation, First line therapy for [...] mL/min. Do not chew or crush. Dissolve flavoredtablets completely in 3 to 4 ounces of cold water; unflavored tablets may be dissolved in 3 to 4 ounces of cold juice. Patient to sip slowly over a 5 to 10 minute period. May further dilute if GI adverse effects occur. * 1852 (See Alternative - Provider: Ami Plaza RN) * 0458 (See Alternative - Provider: Edil Castellanos, WAQAS) potassium chloride (KLOR-CON M) extended release tablet 40 mEq(Linked Group 3) 40 mEq, Oral, PRN, Starting on Wed05/01/24 at 2049, Until Discontinued, Potassium Replacement, Maygive alternative linked oral order (ordered as effervescent, packet, or liquid solution) if patientunable to tolerate tablet. K Lab Replacement Action 3.1 to 3.5 40 mEq ORAL x 1 Under 3.1 Refer to IV replacement protocol Recheck K level in AM. Protocol not for use in patients with CrCl less than 30 mL/min. Do not crush, chew, or suck on tablet. Tablet may also be broken in half and each half swallowed separately. * 1852 (See Alternative - Provider: Ami Plaza RN) * 0458 (See Alternative - Provider: Edil Castellanos RN) potassium chloride 10 mEq/100 mL IVPB (Peripheral Line)(Linked Group 3) 10 mEq, IntraVENous, PRN, Starting on Wed05/01/24 at 2049, Until Discontinued, at 100 mL/hr, Potassium Replacement, K Lab Replacement Action 2.7 to 3.0 10 mEq IVPB x 6 doses (60 mEq Total) Under 2.7CALL PROVIDER and administer 10 mEq IVPB x 6 doses (60 mEq Total) Infuse at 10 mEq/hr. Repeat Potassium lab 1 hour after final administration. Protocol not for use in patients with CrCl less than 30 m L/min. * 1852 (Rate/Dose Verify - Provider: Ami Plaza RN) * 0458 (Rate/Dose Verify - Provider: Edil Castellanos, [...] Midline or Central Line = 20 mL/lumen Order Group 1: acetaminophen (TYLENOL) tablet 650 mgJump to med 650 mg, Oral, EVERY 6 HOURS PRN, Starting on Wed05/01/24 at 0, Until Discontinued, Pain Mild (1-3), Fever, For temp greater than 100.4 F (38 C), Maximum dose of acetaminophen is 4000 mg from all sources in 24 hours. Or acetaminophen (TYLENOL) suppository 650 mgJump to med 650 mg, Rectal, EVERY 6 HOURS PRN, Starting on Wed05/01/24 at 0, Until Discontinued, Pain Mild (1-3), Fever, For temp greater than 100.4 F (38 C), Administer if oral route cannot be used. Group 2: ondansetron (ZOFRAN-ODT) disintegrating tablet 4 mgJump to med 4 mg, Oral, EVERY 8 HOURS PRN, Starting on Wed05/01/24 at 0, Until Discontinued, Nausea, Vomiting Or ondansetron (ZOFRAN) injection 4 mgJump to med 4 mg, IntraVENous, EVERY 6 HOURS PRN, Starting on Wed05/01/24 at 0, Until Discontinued, Nausea,Vomiting, Administer if oral route cannot be used. Group 3: potassium chloride (KLOR-CON M) extended release tablet 40 mEqJump to med 40 mEq, Oral, PRN, Starting on Wed05/01/24 at 0, Until Discontinued, Potassium Replacement, Maygive alternative linked oral order (ordered as effervescent, packet, or liquid solution) if patientunable to tolerate tablet. K Lab Replacement Action [...] mL/min. Do not chew or crush. Dissolve flavoredtablets completely in 3 to 4 ounces of cold water; unflavored tablets may be dissolved in 3 to 4 ounces of cold juice. Patient to sip slowly over a 5 to 10 minute period. May further dilute if GI adverse effects occur. Or potassium chloride 10 mEq/100 mL IVPB (Peripheral Line)Jump to med 10 mEq, IntraVENous, PRN, Starting on Wed05/01/24 at 2050, Until Discontinued, at 100 mL/hr, Potassium Replacement, K Lab Replacement Action 2.7 to 3.0 10 mEq IVPB x 6 doses (60 mEq Total) Under 2.7CALL PROVIDER and administer 10 mEq IVPB x 6 doses (60 mEq Total) Infuse at 10 mEq/hr. Repeat Potassium lab 1 hour after final administration. Protocol not for use in patients with CrCl less than 30 m L/min. Medication Order// sodium chloride flush 0.9 % injection 5-40 mL 5-40 mL, IntraVENous, EVERY 12 HOURS SCHEDULED (2 times per day), First dose on Wed06/05/24 at 0900, Until Discontinued, For Line Patency: Peripheral IV = 5 mL; Midline or Central Line = 10 mL/lumen.If following IV push medication, administer flush at same rate as the IV push. Flush volume is determined by type of infusion therapy being given. For non-viscous solutions use: Peripheral IV = 5 mL Midline or Central Line = 10 mL/lumen For viscous solutions (i.e. blood components, parenteral nutrition, contrast media, or after obtaining blood sample) use: Peripheral IV = 10 mL Midline or CentralLine = 20 mL/lumen, Pre-op (day of surgery) * 0900 (Due) * 2100 (Due) Medication Order// 0.9 % sodium chloride infusion IntraVENous, at 125 mL/hr, CONTINUOUS, Starting on Wed06/05/24 at 0900, Pre-op (day of surgery) * 0900 (Due) Medication Order/01/ 0.9 % sodium chloride infusion IntraVENous, at [...] less into rate field of order., Pre-op (dayof surgery) * 1117 (Stopped - Provider: Sherly Amin RN) lidocaine PF 1 % injection 1 mL (COMPLETED) 1 mL, IntraDERmal, ONCE PRN, 1 dose, Starting on Wed06/05/24 at 0836, Until Wed06/05/24 at 0905, IVstart, Pre-op (day of surgery) * 0905 (Given - Provider: Demian Romero, WAQAS) sodium chloride flush 0.9 % injection [...] For viscous solutions (i.e. blood components, parenteral nutrition,contrast media, or after obtaining blood sample) use: Peripheral IV = 10 mL Midline or Central Line= 20 mL/lumen, Pre-op (day of surgery) * 0906 (Given - Provider: Demian Romero RN) Medication Order07/28//// citalopram (CELEXA) tablet 40 mg 40 mg, Oral, DAILY, First dose on Wed07/19/24 at 2100, Until Discontinued * 0843 (Given - Provider: Pita Hare RN) * 0811 (Given - Provider: Pita Hare RN) * 0900 (Given - Provider: Dhara Shelby RN) enoxaparin (LOVENOX) injection 40 mg 40 mg, SubCUTAneous, DAILY, First dose on Wilma 07/20/24 at 0900, Until Discontinued, Indication of Use: Treatment-DVT/PE, Administer by deep subCUTAneous injection with pt lying down. Alternate injection sites on abdominal wall. Do not rub site after injection. Check with provider prior to any invasive procedure. * 0843 (Not Given - Provider: Pita Hare RN - Reason: Patient/family refused) * 0811 (Not Given - Provider: Pita Hare RN - Reason: Patient/family refused) * 0846 (Not Given - Provider: Dhara Shelby RN - Reason: Patient/family refused) ertapenem (INVanz) 1,000 mg in sodium chloride (PF) 0.9 % 10 mL IV syringe (COMPLETED) 1,000 mg, IntraVENous, EVERY 24 HOURS, First dose (after last modification) on 07/30/24 at 1000,For 1 dose, Administer as slow IV Push over 5 mins (2mL/min) Reconstitute 1000 mg vial with 10 mL of 0.9% sodium chloride to produce a 100mg/mL solution. DO NOT RECONSTITUTE WITH DEXTROSE CONTAINING DILUENT. ADMINISTER SLOW IV PUSH OVER 5 MINUTES * 1040 (Given - Provider: Dhara Shelby RN - Comment: med not available) ertapenem (INVanz) 1,000 mg in sodium chloride (PF) 0.9 % 10 mL IV syringe (COMPLETED) 1,000 mg, IntraVENous, EVERY 24 HOURS, First dose on 07/29/24 at 1515, For 1 dose, Administer asslow IV Push over 5 mins (2mL/min) Reconstitute 1000 mg vial with 10 mL of 0.9% sodium chloride to produce a 100mg/mL solution. DO NOT RECONSTITUTE WITH DEXTROSE CONTAINING DILUENT. ADMINISTER SLOW IV PUSH OVER 5 MINUTES * 1802 (Given - Provider: Pita Hare RN) fat emulsion (INTRALIPID/NUTRILIPID) 20 % infusion 250 mL 250 mL, IntraVENous, at 21 mL/hr, Administer over 12 Hours, DAILY, First dose on Wed07/23/24 at 1800, Use 1.2 micro filter. USE CAUTION IF PATIENT USING PROPOFOL. * 0707 (Stopped - Provider: Nena Steve RN) * 1753 (New Bag - Provider: Pita Hare RN) * 0616 (Stopped - Provider: Nena Steve RN) * 1818 (New Bag - Provider: Pita Hare RN) * 0621 (Stopped - Provider: Elizabeth Read RN) * 1800 (Due) fentaNYL (SUBLIMAZE) injection 25 mcg (COMPLETED) 25 mcg, IntraVENous, ONCE, 1 dose, On Wed07/28/24 at 1745, If oral and IV narcotics ordered, use oral first and only use IV if oral is ineffective or cannot take oral. Do Not give oral and IV within 1 hour of each other unless specifically ordered. * 1737 (Given - Provider: Pita Hare RN) fentaNYL (SUBLIMAZE) injection 25 mcg (COMPLETED) 25 mcg, IntraVENous, ONCE, 1 dose, On Wed07/28/24 at 2015, If oral and IV narcotics ordered, use oral first and only use IV if oral is ineffective or cannot take oral. Do Not give oral and IV within 1 hour of each other unless specifically ordered. * 2000 (Given - Provider: Nena Steve RN) ketorolac (TORADOL) injection 15 mg (COMPLETED) 15 mg, IntraVENous, ONCE, 1 dose, On Wed07/28/24 at 1745, Do not administer for more than 5 days * 1736 (Given - Provider: Pita Hare RN) midodrine (PROAMATINE) tablet 10 mg 10 mg, Oral, 3 TIMES DAILY WITH MEALS, First dose (after last modification) on Wilma 07/27/24 at 1200,Until Discontinued, Do not give after 1800 or within 4 hrs of bedtime. * 0843 (Given - Provider: Pita Hare RN) * 1242 (Given - Provider: Pita Hare RN) * 1646 (Given - Provider: Pita Hare RN) * 0811 (Given - Provider: Pita Hare RN) * 1218 (Given - Provider: Pita Hare RN) * 1802 (Given - Provider: Pita Hare RN) * 0901 (Given - Provider: Dhara Shelby RN) * 1200 (Due) * 1700 (Due) midodrine (PROAMATINE) tablet 10 mg (COMPLETED) 10 mg, Oral, Once, 1 dose, On 07/29/24 at 0630, Do not give after 1800 or within 4 hrs of bedtime. * 0611 (Given - Provider: Nena Steve RN) pantoprazole (PROTONIX) 40 mg in sodium chloride (PF) 0.9 % 10 mL injection 40 mg, IntraVENous, DAILY, First dose on Wilma 07/20/24 at 0900, Reconstitute each 40 mg vial with 10 mL of 0.9% sodium chloride and administer each 40 mg vial over at least 2 minutes. * 0838 (Given - Provider: Pita Hare RN) * 0811 (Given - Provider: Pita Hare RN) * 0901 (Given - Provider: Dhara Shelby RN) piperacillin-tazobactam (ZOSYN) 3,375 mg in sodium chloride 0.9 % 50 mL IVPB (mini-bag) (CANCELED) 3,375 mg, IntraVENous, EVERY 8 HOURS, First dose on Wilma 07/20/24 at 0915, Until Discontinued, Antimicrobial Indications: Intra-Abdominal Infection * 0110 (New Bag - Provider: Nena Steve RN) * 0512 (Stopped - Provider: Nena Steve RN) * 1001 (New Bag - Provider: Pita Hare RN) * 1401 (Stopped - Provider: Pita Hare RN) * 1742 (New Bag - Provider: Pita Hare RN) * 2222 (Stopped - Provider: Nena Steve RN) * 0155 (New Bag - Provider: Nena Steve RN) * 0616 (Stopped - Provider: Nena Steve RN) * 0930 (New Bag - Provider: Pita Hare RN) * 1330 (Stopped - Provider: Pita Hare RN) sodium chloride 0.9 % bolus 500 mL (COMPLETED) 500 mL (9.54 mL/kg), IntraVENous, at 247.9 mL/hr, Administer over 121 Minutes, ONCE, On Sat 25at 0230, For 1 dose * 0223 (New Bag - Provider: Nena Steve RN) * 0447 (Stopped - Provider: Nena Steve RN) sodium chloride flush 0.9 % injection 5-40 mL 5-40 mL, IntraVENous, EVERY 12 HOURS SCHEDULED (2 times per day), First dose on Wed07/19/24 at 2100, Until Discontinued, For Line Patency: Peripheral IV = 5 mL; Midline or Central Line = 10 mL/lumen.If following IV push medication, administer flush at same rate as the IV push. Flush volume is determined by type of infusion therapy being given. For non-viscous solutions use: Peripheral IV = 5 mL Midline or Central Line = 10 mL/lumen For viscous solutions (i.e. blood components, parenteral nutrition, contrast media, or after obtaining blood sample) use: Peripheral IV = 10 mL Midline or CentralLine = 20 mL/lumen * 0844 (Not Given - Provider: Pita Hare RN - Reason: IV Fluid Infusing) * 2007 (Not Given - Provider: Nena Steve RN - Reason: IV Fluid Infusing) * 0812 (Not Given - Provider: Pita Hare RN - Reason: IV Fluid Infusing) * 1926 (Given - Provider: Elizabeth Read RN) * 0846 (Not Given - Provider: Dhara Shelby RN - Reason: Order parameters not met) * 2100 (Due) Medication Order07/28/[id number]//[id number]/ 0.9 % sodium chloride infusion (CANCELED) IntraVENous, at 100 mL/hr, CONTINUOUS, Starting on Wed07/28/24 at 1315 * 1253 (New Bag - Provider: Pita Hare RN) * 2258 (New Bag - Provider: Nena Steve RN) * 0435 (New Bag - Provider: Nena Steve RN) * 1817 (New Bag - Provider: Pita Hare RN) * 0331 (New Bag - Provider: Elizabeth Read RN) * 0856 (Stopped - Provider: Dhara Shelby, WAQAS) PN-Adult 2-in-1 Central Line (Standard) () IntraVENous, at 55 mL/hr, Administer over 24 Hours, CONTINUOUS TPN, Starting on Wed07/28/24 at 1800, For 24 hours * 1752 (New Bag - Provider: Pita Hare RN) * 1800 (Stopped - Provider: Pita Hare RN) PN-Adult 2-in-1 Central Line (Standard) IntraVENous, at 55 mL/hr, Administer over 24 Hours, CONTINUOUS TPN, Starting on Wed07/29/24 at 1800, For 24 hours * 1818 (New Bag - Provider: Pita Hare RN) * 1818 (Due: Stopped - Provider: Pita Hare RN) Medication Order07/28/[id number]/// 0.9 % sodium chloride infusion IntraVENous, at 5-250 mL/hr, PRN, if patient receiving piggyback infusions and maintenance fluids are not ordered OR KVO fluids to protect IV site / prevent frequent line interruptions/ long duration, Starting on Wed07/19/24 at 2046, For piggyback infusion, administer at same rate [...] on Wed07/19/24 at 2131, Until Wed07/28/24 at 1726,Pain Severe (7-10), Pain Moderate (4-6), If oral and IV narcotics ordered, use oral first and only use IV if oral is ineffective or cannot take oral. Do Not give oral and IV within 1 hour of each other unless specifically ordered. * 0439 (Given - Provider: Nena Steve RN) * 0837 (Given - Provider: Pita Hare RN) * 1245 (Given - Provider: Pita Hare RN) hydrOXYzine HCl (ATARAX) tablet 25 mg 25 mg, Oral, NIGHTLY PRN, Starting on Wed07/21/24 at 2100, Until Wed08/20/24 at 2059, sleep * 2002 (Given - Provider: Nena Steve RN) * 1949 (Given - Provider: Elizabeth Read, WAQAS) hyoscyamine (LEVSIN) 0.5 MG/ML injection 0.25 mg 0.25 mg, IntraVENous, EVERY 6 HOURS PRN, Starting on Tu07/25/24 at 1654, Until Discontinued, Cramping * 192 (Given - Provider: Elizabeth Read, RN) ketorolac (TORADOL) injection 15 mg 15 mg, IntraVENous, EVERY 6 HOURS PRN, Starting on 07/29/24 at 0802, Until Wilma 08/03/24 at 0801, Pain Moderate (4-6), Do not administer for more than 5 days * 0810 (Given - Provider: Pita Hare RN) * 1352 (Given - Provider: Pita Hare RN) * 1950 (Given - Provider: Elizabeth Read, WAQAS) melatonin tablet 5 mg 5 mg, Oral, NIGHTLY PRN, Starting on Wed07/19/24 at 2107, Until Discontinued, Sleep * 1949 (Given - Provider: Elizabeth Read, RN) ondansetron (ZOFRAN) injection 4 mg(Linked Group 2) 4 mg, IntraVENous, EVERY 6 HOURS PRN, Starting on Wed07/19/24 at 2047, Until Discontinued, Nausea, Vomiting, Administer if oral route cannot be used. * 0952 (Given - Provider: Pita Hare RN) * 0624 (See Alternative - Provider: Nena Steve RN) * 1053 (Given - Provider: Dhara Shelby RN) ondansetron (ZOFRAN-ODT) disintegrating tablet 4 mg(Linked Group 2) 4 mg, Oral, EVERY 8 HOURS PRN, Starting on Wed07/19/24 at 2047, Until Discontinued, Nausea, Vomiting * 0952 (See Alternative - Provider: Pita Hare RN) * 0624 (Given - Provider: Nena Steve RN) * 1053 (See Alternative - Provider: Dhara Shelby RN) oxyCODONE-acetaminophen (PERCOCET) 5-325 MG per tablet 1 tablet (CANCELED) 1 tablet, Oral, EVERY 4 HOURS PRN, Starting on Wed07/27/24 at 1037, Until Wed07/28/24 at 1725, PainSevere (7-10), Maximum dose of acetaminophen is 4000 mg from all sources in 24 hours. * 0112 (Given - Provider: Nena Steve RN) * 0541 (Given - Provider: Nena Steve RN) * 1002 (Given - Provider: Pita Hare RN) * 1440 (Given - Provider: Pita Hare RN) oxyCODONE-acetaminophen (PERCOCET) 5-325 MG per tablet 1 tablet 1 tablet, Oral, EVERY 4 HOURS PRN, Starting on Wed07/28/24 at 1722, Until Discontinued, Pain Severe(7-10), Maximum dose of acetaminophen is 4000 mg from all sources in 24 hours. * 0218 (Given - Provider: Nena Steve RN) * 1802 (Given - Provider: Pita Hare RN) * 0010 (Given - Provider: Elizabeth Read RN) * 0425 (Given - Provider: Elizabeth Read, WAQAS) * 0901 (Given - Provider: Dhara Shelby RN) phenol 1.4 % mouth spray 1 spray 1 spray, Mouth/Throat, EVERY 2 HOURS PRN, Starting on Wed07/21/24 at 2130, Until Discontinued, SoreThroat potassium bicarb-citric acid (EFFER-K) effervescent tablet 40 mEq(Linked Group 3) 40 mEq, Oral, PRN, Starting on Wed07/19/24 at 2047, Until 08/05/24 at 2045, Per Potassium Replacement [...] unflavored tablets may be dissolved in 3 to4 ounces of cold juice. Patient to sip [...] 40 mEq ORAL x 1 Under 3.1 Referto IV replacement protocol Recheck K level in [...] For viscous solutions (i.e. blood components, parenteral nutrition,contrast media, or after obtaining blood sample) use: Peripheral IV = 10 mL Midline or Central Line= 20 mL/lumen Order Group 1: acetaminophen (TYLENOL) tablet 650 [...] 40 mEq ORAL x 1 Under 3.1 Referto IV replacement protocol Recheck K level in [...] unflavored tablets may be dissolved in 3 to4 ounces of cold juice. Patient to sip [...] or prosecute any alcohol or drug abuse patient.[facility] CenterIn the event this information is protected by the Federal Confidentiality of Alcohol and Drug Abuse Patient Records regulations: The Federal rules restrict any use of the information to criminally investigate or prosecute any alcohol or drug abuse patient.[facility] CenterIn the event this information is protected by the Federal Confidentiality of Alcohol and Drug Abuse Patient Records regulations: The Federal rules restrict any use of the information to criminally investigate or prosecute any alcohol or drug abuse patient.[facility] CenterIn the event this information is protected by the Federal Confidentiality of Alcohol and Drug Abuse Patient Records regulations: The Federal rules restrict any use of the information to criminally investigate or prosecute any alcohol or drug abuse patient.[facility] CenterIn the event this information is protected by the Federal Confidentiality of Alcohol and Drug Abuse Patient Records regulations: The Federal rules restrict any use of the information to criminally investigate or prosecute any alcohol or drug abuse patient.[facility] CenterIn the event this information is protected by the Federal Confidentiality of Alcohol and Drug Abuse Patient Records regulations: The Federal rules restrict any use of the information to criminally investigate or prosecute any alcohol or drug abuse patient.[facility] CenterIn the event this information is protected by the Federal Confidentiality of Alcohol and Drug Abuse Patient Records regulations: The Federal rules restrict any use of the information to criminally investigate or prosecute any alcohol or drug abuse patient.[facility] CenterIn the event this information is protected by the Federal Confidentiality of Alcohol and Drug Abuse Patient Records regulations: The Federal rules restrict any use of the information to criminally investigate or prosecute any alcohol or drug abuse patient.[facility] CenterIn the event this information is protected by the Federal Confidentiality of Alcohol and Drug Abuse Patient Records regulations: The Federal rules restrict any use of the information to criminally investigate or prosecute any alcohol or drug abuse patient.[facility] CenterIn the event this information is protected by the Federal Confidentiality of Alcohol and Drug Abuse Patient Records regulations: The Federal rules restrict any use of the information to criminally investigate or prosecute any alcohol or drug abuse patient.[facility] CenterIn the event this information is protected by the Federal Confidentiality of Alcohol and Drug Abuse Patient Records regulations: The Federal rules restrict any use of the information to criminally investigate or prosecute any alcohol or drug abuse patient.[facility] CenterIn the event this information is protected by the Federal Confidentiality of Alcohol and Drug Abuse Patient Records regulations: The Federal rules restrict any use of the information to criminally investigate or prosecute any alcohol or drug abuse patient.[facility] CenterIn the event this information is protected by the Federal Confidentiality of Alcohol and Drug Abuse Patient Records regulations: The Federal rules restrict any use of the information to criminally investigate or prosecute any alcohol or drug abuse patient.[facility] CenterIn the event this information is protected by the Federal Confidentiality of Alcohol and Drug Abuse Patient Records regulations: The Federal rules restrict any use of the information to criminally investigate or prosecute any alcohol or drug abuse patient.[facility] CenterIn the event this information is protected by the Federal Confidentiality of Alcohol and Drug Abuse Patient Records regulations: The Federal rules restrict any use of the information to criminally investigate or prosecute any alcohol or drug abuse patient.[facility] CenterIn the event this information is protected by the Federal Confidentiality of Alcohol and Drug Abuse Patient Records regulations: The Federal rules restrict any use of the information to criminally investigate or prosecute any alcohol or drug abuse patient.[facility] CenterIn the event this information is protected by the Federal Confidentiality of Alcohol and Drug Abuse Patient Records regulations: The Federal rules restrict any use of the information to criminally investigate or prosecute any alcohol or drug abuse patient.[facility] CenterIn the event this information is protected by the Federal Confidentiality of Alcohol and Drug Abuse Patient Records regulations: The Federal rules restrict any use of the information to criminally investigate or prosecute any alcohol or drug abuse patient.[facility] CenterIn the event this information is protected by the Federal Confidentiality of Alcohol and Drug Abuse Patient Records regulations: The Federal rules restrict any use of the information to criminally investigate or prosecute any alcohol or drug abuse patient.[facility] CenterIn the event this information is protected by the Federal Confidentiality of Alcohol and Drug Abuse Patient Records regulations: The Federal rules restrict any use of the information to criminally investigate or prosecute any alcohol or drug abuse patient.[facility] CenterIn the event this information is protected by the Federal Confidentiality of Alcohol and Drug Abuse Patient Records regulations: The Federal rules restrict any use of the information to criminally investigate or prosecute any alcohol or drug abuse patient.[facility] CenterIn the event this information is protected by the Federal Confidentiality of Alcohol and Drug Abuse Patient Records regulations: The Federal rules restrict any use of the information to criminally investigate or prosecute any alcohol or drug abuse patient.[facility] CenterIn the event this information is protected by the Federal Confidentiality of Alcohol and Drug Abuse Patient Records regulations: The Federal rules restrict any use of the information to criminally investigate or prosecute any alcohol or drug abuse patient.[facility] CenterIn the event this information is protected by the Federal Confidentiality of Alcohol and Drug Abuse Patient Records regulations: The Federal rules restrict any use of the information to criminally investigate or prosecute any alcohol or drug abuse patient.[facility] CenterIn the event this information is protected by the Federal Confidentiality of Alcohol and Drug Abuse Patient Records regulations: The Federal rules restrict any use of the information to criminally investigate or prosecute any alcohol or drug abuse patient.[facility] CenterIn the event this information is protected by the Federal Confidentiality of Alcohol and Drug Abuse Patient Records regulations: The Federal rules restrict any use of the information to criminally investigate or prosecute any alcohol or drug abuse patient.[facility] CenterIn the event this information is protected by the Federal Confidentiality of Alcohol and Drug Abuse Patient Records regulations: The Federal rules restrict any use of the information to criminally investigate or prosecute any alcohol or drug abuse patient.[facility] CenterIn the event this information is protected by the Federal Confidentiality of Alcohol and Drug Abuse Patient Records regulations: The Federal rules restrict any use of the information to criminally investigate or prosecute any alcohol or drug abuse patient.[facility] CenterIn the event this information is protected by the Federal Confidentiality of Alcohol and Drug Abuse Patient Records regulations: The Federal rules restrict any use of the information to criminally investigate or prosecute any alcohol or drug abuse patient.[facility] CenterIn the event this information is protected by the Federal Confidentiality of Alcohol and Drug Abuse Patient Records regulations: The Federal rules restrict any use of the information to criminally investigate or prosecute any alcohol or drug abuse patient.[facility] CenterIn the event this information is protected by the Federal Confidentiality of Alcohol and Drug Abuse Patient Records regulations: The Federal rules restrict any use of the information to criminally investigate or prosecute any alcohol or drug abuse patient.[facility] CenterIn the event this information is protected by the Federal Confidentiality of Alcohol and Drug Abuse Patient Records regulations: The Federal rules restrict any use of the information to criminally investigate or prosecute any alcohol or drug abuse patient.[facility] CenterIn the event this information is protected by the Federal Confidentiality of Alcohol and Drug Abuse Patient Records regulations: The Federal rules restrict any use of the information to criminally investigate or prosecute any alcohol or drug abuse patient.[facility] CenterIn the event this information is protected by the Federal Confidentiality of Alcohol and Drug Abuse Patient Records regulations: The Federal rules restrict any use of the information to criminally investigate or prosecute any alcohol or drug abuse patient.[facility] CenterIn the event this information is protected by the Federal Confidentiality of Alcohol and Drug Abuse Patient Records regulations: The Federal rules restrict any use of the information to criminally investigate or prosecute any alcohol or drug abuse patient.[facility] CenterIn the event this information is protected by the Federal Confidentiality of Alcohol and Drug Abuse Patient Records regulations: The Federal rules restrict any use of the information to criminally investigate or prosecute any alcohol or drug abuse patient.[facility] CenterIn the event this information is protected by the Federal Confidentiality of Alcohol and Drug Abuse Patient Records regulations: The Federal rules restrict any use of the information to criminally investigate or prosecute any alcohol or drug abuse patient.[facility] CenterIn the event this information is protected by the Federal Confidentiality of Alcohol and Drug Abuse Patient Records regulations: The Federal rules restrict any use of the information to criminally investigate or prosecute any alcohol or drug abuse patient.[facility] CenterIn the event this information is protected by the Federal Confidentiality of Alcohol and Drug Abuse Patient Records regulations: The Federal rules restrict any use of the information to criminally investigate or prosecute any alcohol or drug abuse patient.[facility] CenterIn the event this information is protected by the Federal Confidentiality of Alcohol and Drug Abuse Patient Records regulations: The Federal rules restrict any use of the information to criminally investigate or prosecute any alcohol or drug abuse patient.[facility] CenterIn the event this information is protected by the Federal Confidentiality of Alcohol and Drug Abuse Patient Records regulations: The Federal rules restrict any use of the information to criminally investigate or prosecute any alcohol or drug abuse patient.[facility] CenterIn the event this information is protected by the Federal Confidentiality of Alcohol and Drug Abuse Patient Records regulations: The Federal rules restrict any use of the information to criminally investigate or prosecute any alcohol or drug abuse patient.[facility] CenterIn the event this information is protected by the Federal Confidentiality of Alcohol and Drug Abuse Patient Records regulations: The Federal rules restrict any use of the information to criminally investigate or prosecute any alcohol or drug abuse patient.[facility] CenterIn the event this information is protected by the Federal Confidentiality of Alcohol and Drug Abuse Patient Records regulations: The Federal rules restrict any use of the information to criminally investigate or prosecute any alcohol or drug abuse patient.[facility] CenterIn the event this information is protected by the Federal Confidentiality of Alcohol and Drug Abuse Patient Records regulations: The Federal rules restrict any use of the information to criminally investigate or prosecute any alcohol or drug abuse patient.[facility] CenterIn the event this information is protected by the Federal Confidentiality of Alcohol and Drug Abuse Patient Records regulations: The Federal rules restrict any use of the information to criminally investigate or prosecute any alcohol or drug abuse patient.[facility] CenterIn the event this information is protected by the Federal Confidentiality of Alcohol and Drug Abuse Patient Records regulations: The Federal rules restrict any use of the information to criminally investigate or prosecute any alcohol or drug abuse patient.[facility] CenterIn the event this information is protected by the Federal Confidentiality of Alcohol and Drug Abuse Patient Records regulations: The Federal rules restrict any use of the information to criminally investigate or prosecute any alcohol or drug abuse patient.[facility] CenterIn the event this information is protected by the Federal Confidentiality of Alcohol and Drug Abuse Patient Records regulations: The Federal rules restrict any use of the information to criminally investigate or prosecute any alcohol or drug abuse patient.[facility] CenterIn the event this information is protected by the Federal Confidentiality of Alcohol and Drug Abuse Patient Records regulations: The Federal rules restrict any use of the information to criminally investigate or prosecute any alcohol or drug abuse patient.[facility] CenterIn the event this information is protected by the Federal Confidentiality of Alcohol and Drug Abuse Patient Records regulations: The Federal rules restrict any use of the information to criminally investigate or prosecute any alcohol or drug abuse patient.[facility] CenterIn the event this information is protected by the Federal Confidentiality of Alcohol and Drug Abuse Patient Records regulations: The Federal rules restrict any use of the information to criminally investigate or prosecute any alcohol or drug abuse patient.[facility] CenterIn the event this information is protected by the Federal Confidentiality of Alcohol and Drug Abuse Patient Records regulations: The Federal rules restrict any use of the information to criminally investigate or prosecute any alcohol or drug abuse patient.[facility] CenterIn the event this information is protected by the Federal Confidentiality of Alcohol and Drug Abuse Patient Records regulations: The Federal rules restrict any use of the information to criminally investigate or prosecute any alcohol or drug abuse patient.[facility] CenterIn the event this information is protected by the Federal Confidentiality of Alcohol and Drug Abuse Patient Records regulations: The Federal rules restrict any use of the information to criminally investigate or prosecute any alcohol or drug abuse patient.[facility] CenterIn the event this information is protected by the Federal Confidentiality of Alcohol and Drug Abuse Patient Records regulations: The Federal rules restrict any use of the information to criminally investigate or prosecute any alcohol or drug abuse patient.[facility] CenterIn the event this information is protected by the Federal Confidentiality of Alcohol and Drug Abuse Patient Records regulations: The Federal rules restrict any use of the information to criminally investigate or prosecute any alcohol or drug abuse patient.[facility] CenterIn the event this information is protected by the Federal Confidentiality of Alcohol and Drug Abuse Patient Records regulations: The Federal rules restrict any use of the information to criminally investigate or prosecute any alcohol or drug abuse patient.[facility] CenterIn the event this information is protected by the Federal Confidentiality of Alcohol and Drug Abuse Patient Records regulations: The Federal rules restrict any use of the information to criminally investigate or prosecute any alcohol or drug abuse patient.[facility] CenterIn the event this information is protected by the Federal Confidentiality of Alcohol and Drug Abuse Patient Records regulations: The Federal rules restrict any use of the information to criminally investigate or prosecute any alcohol or drug abuse patient.[facility] CenterIn the event this information is protected by the Federal Confidentiality of Alcohol and Drug Abuse Patient Records regulations: The Federal rules restrict any use of the information to criminally investigate or prosecute any alcohol or drug abuse patient.[facility] CenterIn the event this information is protected by the Federal Confidentiality of Alcohol and Drug Abuse Patient Records regulations: The Federal rules restrict any use of the information to criminally investigate or prosecute any alcohol or drug abuse patient.[facility] CenterIn the event this information is protected by the Federal Confidentiality of Alcohol and Drug Abuse Patient Records regulations: The Federal rules restrict any use of the information to criminally investigate or prosecute any alcohol or drug abuse patient.[facility] CenterIn the event this information is protected by the Federal Confidentiality of Alcohol and Drug Abuse Patient Records regulations: The Federal rules restrict any use of the information to criminally investigate or prosecute any alcohol or drug abuse patient.[facility] CenterIn the event this information is protected by the Federal Confidentiality of Alcohol and Drug Abuse Patient Records regulations: The Federal rules restrict any use of the information to criminally investigate or prosecute any alcohol or drug abuse patient.[facility] CenterIn the event this information is protected by the Federal Confidentiality of Alcohol and Drug Abuse Patient Records regulations: The Federal rules restrict any use of the information to criminally investigate or prosecute any alcohol or drug abuse patient.[facility] CenterIn the event this information is protected by the Federal Confidentiality of Alcohol and Drug Abuse Patient Records regulations: The Federal rules restrict any use of the information to criminally investigate or prosecute any alcohol or drug abuse patient.[facility] CenterIn the event this information is protected by the Federal Confidentiality of Alcohol and Drug Abuse Patient Records regulations: The Federal rules restrict any use of the information to criminally investigate or prosecute any alcohol or drug abuse patient.[facility] CenterIn the event this information is protected by the Federal Confidentiality of Alcohol and Drug Abuse Patient Records regulations: The Federal rules restrict any use of the information to criminally investigate or prosecute any alcohol or drug abuse patient.[facility] CenterIn the event this information is protected by the Federal Confidentiality of Alcohol and Drug Abuse Patient Records regulations: The Federal rules restrict any use of the information to criminally investigate or prosecute any alcohol or drug abuse patient.[facility] CenterIn the event this information is protected by the Federal Confidentiality of Alcohol and Drug Abuse Patient Records regulations: The Federal rules restrict any use of the information to criminally investigate or prosecute any alcohol or drug abuse patient.[facility]In the event this information is protected by the Federal Confidentiality of Alcohol and Drug Abuse Patient Records regulations: The Federal rules restrict any use of the information to criminally investigate or prosecute any alcohol or drug abuse patient.[facility] CenterIn the event this information is protected by the Federal Confidentiality of Alcohol and Drug Abuse Patient Records regulations: The Federal rules restrict any use of the information to criminally investigate or prosecute any alcohol or drug abuse patient.[facility] CenterIn the event this information is protected by the Federal Confidentiality of Alcohol and Drug Abuse Patient Records regulations: The Federal rules restrict any use of the information to criminally investigate or prosecute any alcohol or drug abuse patient.[facility]In the event this information is protected by the Federal Confidentiality of Alcohol and Drug Abuse Patient Records regulations: The Federal rules restrict any use of the information to criminally investigate or prosecute any alcohol or drug abuse patient.[facility]In the event this information is protected by the Federal Confidentiality of Alcohol and Drug Abuse Patient Records regulations: The Federal rules restrict any use of the information to criminally investigate or prosecute any alcohol or drug abuse patient.[facility]In the event this information is protected by the Federal Confidentiality of Alcohol and Drug Abuse Patient Records regulations: The Federal rules restrict any use of the information to criminally investigate or prosecute any alcohol or drug abuse patient.[facility]In the event this information is protected by the Federal Confidentiality of Alcohol and Drug Abuse Patient Records regulations: The Federal rules restrict any use of the information to criminally investigate or prosecute any alcohol or drug abuse patient.[facility]In the event this information is protected by the Federal Confidentiality of Alcohol and Drug Abuse Patient Records regulations: The Federal rules restrict any use of the information to criminally investigate or prosecute any alcohol or drug abuse patient.[facility] CenterIn the event this information is protected by the Federal Confidentiality of Alcohol and Drug Abuse Patient Records regulations: The Federal rules restrict any use of the information to criminally investigate or prosecute any alcohol or drug abuse patient.[facility]In the event this information is protected by the Federal Confidentiality of Alcohol and Drug Abuse Patient Records regulations: The Federal rules restrict any use of the information to criminally investigate or prosecute any alcohol or drug abuse patient.[facility]In the event this information is protected by the Federal Confidentiality of Alcohol and Drug Abuse Patient Records regulations: The Federal rules restrict any use of the information to criminally investigate or prosecute any alcohol or drug abuse patient.[facility]In the event this information is protected by the Federal Confidentiality of Alcohol and Drug Abuse Patient Records regulations: The Federal rules restrict any use of the information to criminally investigate or prosecute any alcohol or drug abuse patient.[facility] CenterIn the event this information is protected by the Federal Confidentiality of Alcohol and Drug Abuse Patient Records regulations: The Federal rules restrict any use of the information to criminally investigate or prosecute any alcohol or drug abuse patient.[facility] CenterIn the event this information is protected by the Federal Confidentiality of Alcohol and Drug Abuse Patient Records regulations: The Federal rules restrict any use of the information to criminally investigate or prosecute any alcohol or drug abuse patient.[facility] FOR RECORDS PERTAINING TO PATIENTS WHO ARE [...] BE BASED ON THE PRIMARY CLINICAL RECORDS. [facility] [employer] provides no warranty or guarantee of the accuracy or completeness of information in this document.
[2025-05-21 13:37] LABS: Hematocrit 34.8 % (36.0-48.0); Hemoglobin 11.5 g/dL (12.0-16.0); Mean Corpuscular HGB Conc 33.0 g/dL (29.9-35.2); Mean Corpuscular Hemoglobin 28.8 pg (26.7-34.0); Mean Corpuscular Volume 87.2 fL (81.0-99.0); Platelet Count 197 10^3/uL (150-450); Red Blood Count 3.99 10^6/uL (4.20-5.40); White Blood Count 4.7 10^3/uL (4.0-11.0)
[2025-05-21 13:58] LABS: Alanine Aminotransferase 50 U/L (14-59); Albumin Globulin Ratio 0.8; Albumin Level 3.2 g/dL (3.4-5.0); Alkaline Phosphatase 74 U/L (46-116); Anion Gap 11.6; Aspartate Amino Transferase 25 U/L (15-37); Blood Urea Nitrogen 21.0 mg/dL (7.0-18.0); Calcium 8.6 mg/dL (8.5-10.1); Carbon Dioxide 27.2 mmol/L (21.0-32.0); Chloride 106 mmol/L (98-107); Estimated GFR (African America >60 (>=60 mL/min/1.73m^2); Estimated GFR (Non-African Ame >60 (>=60 mL/min/1.73m^2); Globulin 3.9 g/dL; Glucose 96 mg/dL (74-106); Magnesium 2.1 mg/dL (1.8-2.4); Potassium 4.8 mmol/L (3.5-5.1); Sodium 140 mmol/L (136-145); Total Protein 7.1 g/dL (6.4-8.2)
== END 2025-05-21 13:05 | disposition home or self-care (01) ==
LOC: LAB 13:04
PROVIDERS: PCP Student in an Organized Health Care Education/Training Program; Visit Provider Student in an Organized Health Care Education/Training Program
DX: Z79.899 Other long term (current) drug therapy (principal); Z51.81 Encounter for therapeutic drug level monitoring; K50.818 Crohn's disease of both small and large intestine with other complication; K90.821 Short bowel syndrome with colon in continuity
CPT/HCPCS: 36415; 80053; 83735; 84100; 85027

== ENCOUNTER 2025-06-04 14:22 | Outpatient (REF) | payer OTHER, SELFPAY ==
--- OUTSIDE RECORDS SUMMARY | 2012-03-30 10:35 | XMS_ITS | Continuity of Care Document ---
Author Organization [facility] Address [facility] [place] [address] Phone Care Team Providers Care Train Planner Name Role Phone Rogerio TALAMANTES, Morgan Unavailable Unavailable Medications Medication Instructions Dosage Dose Quantity Effective Dates (start - stop) Status Indication Fill Status Comments prednisone 10 mg Tab take 0.5 Tablet (5MG) by oral route every day for 2 weeks then off 5 MG 0.5 Tablet 2 - Active [facility] at [phone]. Lialda 1.2 g Tab take 3 Tablet (3.6G) by oral route every day with a meal 3.6 G 3 Tablet 2 - Active Problems Condition Type Effective Dates (start - stop) Diagnosed Date Clinical Status Comments Generalized abdominal pain Problem (finding) - Active (qualifier value) Advance Directives Directive Yes / No Effective Date File Name No Information Encounters Encounter Description Practice Location Reason(s) For Visit Diagnoses Date Provider Encounter Disposition [facility], [address] [place], [place] [address], [place], [id number] tel:[phone] [facility] No Information 2 Rogerio TALAMANTES Morgan. [address] [place] [address] [facility] [place] [id number]. tel: [phone] [facility], [address] [place], [place] [address], [place], [id number] tel:[phone] [facility] No Information 2 Rogerio TALAMANTES Morgan. [address] [place] [address] [facility] [place], [id number]. tel: [phone] [facility], [address] [place] [address], [place], [place], [id number] tel:[phone] [facility] Crohn's disease (chief complaint) Crohns Small Bowel/Colon Apr-2 2 Rogerio TALAMANTES Morgan. [address] [place] [address], [place], [place], [id number]. tel: [phone] [facility], [address] [place], [place] [address], [place], [id number] tel:[phone] [facility] Abdominal Pain, Periumbilic Oct- 2 Rogerio TALAMANTES Morgan. [address] [place] [address], [place], [place], [id number]. tel: [phone] [facility], [address] [place] [address], [place], [id number] tel:[phone] [facility] Abdominal Pain, General Apr- 2 Rogerio TALAMANTES Morgan. [address] [place] [address], [place], [place], [id number]. tel: [phone] [facility], [address] [place] [address], [place], [place], [id number] tel:[phone] [facility] Colitis (chief complaint) Crohns Small Bowel/Colon Sep- 1 Rogerio TALAMANTES Morgan. [address] [place] [address], [place], [place], [id number]. tel: [phone] [facility], [address] [place] [address], [place], [place], [id number] tel:[phone] [facility] Colitis (chief complaint) Crohns Small Bowel/ColonDy spepsiaExtern al hemorrhoids without mention of complication Oct- 1 Rogerio TALAMANTES Morgan. [address] [place] [address], [place], [place], [id number]. tel: [phone] [facility], [address] [place], [place] [address], [place], [id number] tel:[phone] [facility] Colitis (chief complaint) Colitis/Gastr oenteritis 1 No Information [facility], [address] [place], [place] [address], [place], [id number] tel:[phone] [facility] Abdominal Pain, General 1 Yuriy Mac. [address] [place] [address], [place], [id number]. tel: [phone] [facility], [address] [place], [place] [address], [id number] tel:[phone] [facility] No Information 0 No Information [facility], [address] [place], [place] [address], [id number] tel:[phone] [facility] No Information 0 Rogerio Mora. [address] [place] [address], [place], [place], [id number]. tel:[phone] Family History Family Member Type Diagnosis Age At Onset No Information Payers Payer name Insurance type Identifiers Authorization(s) Com ments No Information Social History Type Description Quantity Date Captured Comments Sex Female Smoking Status No Information Current Gender Female (finding) Chief Complaint And Reason For Visit No Information Plan Of Treatment Date Type Action Status Referral Ordered: CT Abdomen/Pelvis W & W/O Contrast Appointment date/timeframe: 10/22/2011 [id number] Ordered: Office Visit Appointment date/timeframe: 5 Months [...] and mucus in stool. Crohn's disease Yesica roman to discuss a Crohn's flare. She [...] the and they will be moving to [place] in the next week to 4 weeks. [...] and diet altered accordingly Functional Status Date Description Comments No Information Instructions Date Instruction Additional Infor mation No Information Assessments Type Assessment Date No Information
--- OUTSIDE RECORDS SUMMARY | 2025-05-23 15:00 | XMS_ITS | Encounter Summary ---
Author Organization [facility] Address [address] [place] [address] Care Team Providers Care Can Reconditioner Name Role Phone Berna Mike DO Unavailable Source Comments In the event this information is protected by the Federal Confidentiality of Alcohol and Drug AbusePatient Records regulations: The Federal rules restrict any use of the information to criminally investigate or prosecute any alcohol or drug abuse patient.[facility] Reason for Visit * ReasonCommentsPost Op Encounter Details DateTypeDepartmentCare Team (Latest Contact Info)Igtlcayzlxn72/19/2025 3:00 PM ESTOffice Visit Colorectal Surgery [address] [address] Elsy Rousseau DO [address] [place] [address] Crohn's disease of both small and large intestine with other complication (HCC); Abdominal bloating; Encounter for adjustment and management of vascular access device; 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 Social History Tobacco UseTypesPacks/DayYears UsedDateSmoking Tobacco: NeverPassive Smoke Exposure: CurrentSmokeless Tobacco: Never Tobacco Cessation:Counseling Given: Not Answered Passive Exposure Comments: smokes out side per pt 02/14/2025lcohol Use Standard Drinks/WeekCommentsNot Currently0 (1 standard drink = 0.6 oz pure alcohol)PHQ-2AnswerDate RecordedPHQ-2 [id number] Stability Vital SignAnswerDate RecordedIn the last 12 months, was there a time when you were not able to pay the mortgage or rent on time?No09/03/2024Number of Times Moved in the Last YearNot on file09/03/2024 any time in the past 12 months, were you homeless or living in a custodial (including now)?No09/03/2024Hunger Vital Sign AnswerDate RecordedWithin the past 12 months, you worried that your food would run out before you got the money to buymore.Never true02/16/2025Within the past 12 months, the food you bought just didn't last and you didn't have money to get more.Never true02/16/2025PRAPARE - TransportationAnswerDate RecordedIn the past 12 months, has lack of transportation kept you from medical appointments or from getting medications?No02/16/2025In the past 12 months, has lack of transportation kept you from meetings, work, or from getting things needed for daily living?02/16/2025Housing Stability Vital SignAnswerDate RecordedIn the last 12 months, was there a time when you were not able to pay the mortgage or rent on time?No02/16/2025Number of Times Moved in the Last YearNot on file 02/16/2025 any time in the past 12 months, were you homeless or living in a custodial (including now)?No02/16/2025HC UtilitiesAnswerDate RecordedIn the past 12 months has the electric, gas, oil, or water company threatened to shut off services in your home?No02/16/2025rea Deprivation IndexAnswerDate Recorded National Score (1-100), lower number is lower umqd149907/31/2024State Score (1- 10), lower number is lower xlpj61807/31/2024Data from: https://www.neighborhoodatlas.medicine.[facility]/. Last address used for [id number]/2024CommentsNoSex and Gender Information ValueDate RecordedSex Assigned at BirthNot on fileLegal HmuWhjndt35/18/2025 1:54 PM ESTGender IdentityNot on fileSexual OrientationNot on filedocumented as of this encounter Last Filed Vital Signs Vital SignReadingTime TakenCommentsBlood Pressure--Pulse--Temperature-- Respiratory Rate--Oxygen Saturation--Inhaled Oxygen Concentration--Vnysnw54.9 kg (143 lb)05/23/2025 2:45 PM HLDRbedxr203.9 cm (5' 6.5 )05/23/2025 2:45 PM ESTBody Mass Index22.7405/23/2025 2:45 PM ESTdocumented in this encounter Functional Status * Are you deaf or do you have serious difficulty hearing?AnswerDate of CpaorkkwqlCruoejRe29/26/2025 2:38 PM Hanane Benitez RN * Are you blind or do you have serious difficulty seeing, even when wearing glasses?AnswerDate of RlvegpalybYhmtinWb53/26/2025 2:38 PM Hanane Benitez RN * Do you have serious difficulty walking or climbing stairs?AnswerDate of KyichzzaadTvaiswRs57/26/2025 2:38 PM Hanane Benitez RN * Do you have difficulty dressing or bathing?AnswerDate of AssessmentAuthorNo 08/30/2024 2:38 PM Hanane Benitez RN * Because of a physical, mental, or emotional condition, do you have difficulty doing errands alone such as visiting a doctor's office or shopping?AnswerDate of UfozwjwwdmVakbnhYb66/26/2025 2:38 PM Hanane Benitez RN documented as of this encounter Mental Status * Because of a physical, mental, or emotional condition, do you have serious difficulty concentrating, remembering, or making decisions?AnswerEntry Date AodmypKf51/26/2025 2:38 PM Hanane Benitez RN documented in this encounter Progress Notes * Elsy Rousseau DO - 05/23/2025 3:00 PM EST COLORECTAL SURGERY Post-Op Visit May 08, 2025 Yesica Humphrey returns for a post-operative visit after undergoing Exploratory laparotomy, takedown of end ileostomy, extensive adhesiolysis more than 2 hours, pentecostalism of intestinal continuity withcreation of end to side ileocolic anastomosis, on 02/15/25. Her post-operative period was uncomplicated. She is tolerating diet with an improving appetite, stable weight, and energy level is improving . She has no specific complaints, except bloating , continues to be on TPN . Current pain medications: none Current bowel related medications: fiber supplements, lomotil, dicyclomine Bowel movement frequency: multiple a day Since her most recent surgery, she has experienced daily abdominal bloating, which is most pronounced in the mornings and improves after bowel movements. She reports 5 or more bowel movements per day, occasionally requiring nocturnal defecation, which leads to less severe bloating the following morning. She denies fecal incontinence. Bloating is sometimes severe enough to induce emesis, which hasimproved from baseline but still occurs unpredictably, sometimes several hours after eating. She describes her belching as ???very aggressive?? and ???echoey.?? She also reports intermittent abdominal pain, which she attributes to bloating. She previously suspected a hernia due to localized tenderness, but this improved after she reduced her walking activity. Her oral intake is limited, often consisting of a hard-boiled egg and half a protein shake, with occasional chicken or rice later in the day. She sometimes consumes only one meal per day, citing poorappetite, which she attributes to ongoing TPN. She is currently receiving TPN 5 days per week (previously 7 days), with 3 liters per infusion providing approximately 3200 kcal per day. On non-TPN days, she uses a hydration bag. She is under the care of Dr. Juany Mike (nutrition) and Dr. Hoover (GI),with a colonoscopy scheduled for 08/09. She has been taking Lomotil to slow bowel movements, but was unaware this was contraindicated postoperatively. She is also taking dicyclomine (Bentyl) and amitriptyline (Elavil) as prescribed. She was previously prescribed Ex-Lax and fiber, but discontinued fiber due to worsening bloating. She avoids fruit for the same reason. She is currently on full-dose Skyrizi. She has gained weight since surgery and reports feeling well overall, with stable energy levels. She is accompanied by her , who provides additional history. - Ileostomy takedown: 80 cm of small bowel remaining; most of colon intact. Amino Acids Solution: 15% amino acids 15% Amino Acids (g): 115 Amino Acid %: 3.6 Amino Acids (KCal/Day): 329 Amino Acids (g/L): 35.9 Dextrose (g): 230 Dextrose (KCal/Day): 559 Dextrose (g/L): 72 Fat Emulsion Solution: Smoflipid 20% Fat Percentage (%): 20 Fat Emul. Concentrate (ml): 320 Fat Emulsion (KCal/Day): 457 Fat Emulsion (g/L): 20 2 in 1 days/wk: 0 3 in 1 days/wk: 5 Total KCal w/Fat/Day: 1345 KCal/k.5 Grams Protein/k.8 Water for Injection (ml): 1620 HPN Volume (ml): 3200 Calcium Gluconate (mEq): 10 Magnesium Sulfate (mEq): 20 Potassium Phosphate (mEq): 0 Sodium Phosphate (mEq): 40 Glyco Phosphate (mEq): 0 Potassium Chloride (mEq): 60 Potassium Acetate (mEq): 0 Sodium Chloride (mEq): 95 Sodium Acetate (mEq): 145 Multiple Vitamin Solution: MVI Adult Multiple Vitamins (ml): 10 Vitamin K (Days): 0 Vitamin K (mg): 0 Mult Trace Elemts Solution: Tralement Mult. Trace Elemts (ml): 1 Chromium (mcg): 0 Copper (mg): 0 Manganese (mcg): 0 Selenium (mcg): 0 Zinc (mg): 2 Heparin (units): 0 Insulin Regular Human (units): 0 H2 Antagonist: H2 (mg): 0 Octreotide (mcg): 0 PN Infus Days (per wk): 5: Sun, Mon, Wed, Wilma, Fri PN Infus Hrs (per day): 12 Taper Up (hrs): 1 Taper Down (hrs): 1 PN Refill: PN Start Date: 05/23/2025 (*) PN End Date: 08/21/2025 (*) IVF Solution: 0.45NS IVF Volume (ml): 1000 IVF Infus Days/wk: 1 Current Outpatient Medications Medication Sig Dispense Refill enoxaparin (LOVENOX) 100 mg/mL syrg Inject 0.975 mL subcutaneously once daily. Please inject full contents of syringe daily. 30 each 1 OTC PRODUCT Probiotic powder Cholecalciferol, Vitamin D3, (VITAMIN D) 25 mcg (1,000 unit) cap Take 1 capsule by mouth once daily. 90 capsule 3 Simethicone (GAS-X EXTRA STRENGTH) 125 mg chewable tablet Take 1 tablet by mouth every 6 hours as needed. 180 tablet 3 ondansetron orally disintegrating (ZOFRAN ODT) 4 mg disintegrating tablet Take 1 tablet by mouth every 12 hours as needed for nausea/vomiting. 60 tablet 2 risankizumab-rzaa (SKYRIZI) 360 mg/2.4 mL (150 mg/mL) [...] alternating nostrils until medical assistance is available (Patient not taking: Reported on 03/30/2025) [address] (PROTONIX) 40 mg tablet Take [...] No current facility-administered medications for this visit. Allergies Allergen Reactions Ibuprofen Other: See Comments Nsaids (Non-Steroidal Anti-Inflammatory Drug) Other: See Comments Ht 168.9 cm (5' 6.5 ) Wt 64.9 kg (143 lb) LMP 05/09/2025 (Approximate) BMI 22.74 kg/m?? Sensitive Exam: yes, Participation of a fellow, resident, medical student, or advanced practice provider student in performing the sensitive examination was discussed with the patient or authorized outbound call center representative. The patient or authorized outbound call center representative has agreed to proceed with the sensitive examination. Abdominal examination: soft, non-distended, and non-tender without masses or hernias. Wound is wellhealed. Anorectal: no fistula Home Appliance Installer present: Yes Patient Entered Questionnaires 03/15/2025 PROMIS Global Health Physical Health Summary Physical health: Poor Everyday physical activity, ability: Moderately Fatigue: Moderate Pain level: 6 General health: Poor Social activities/roles, ability: Fair Physical Health T-Score (Poor) Physical Health Percentile 7 PROMIS Global Health Mental Health Summary Quality of life: Poor Mental health (mood,thinking): Poor Social satisfaction: Poor Emotional problems (anxious,depressed): Often Mental Health T-Score (Poor) Mental Health Percentile 1 Failed to redirect to the Timeline version of the [employer]. Failed to redirect to the Timeline version of the [employer]. 03/15/2025 PROMIS Global Health Physical Health Summary Physical health: Poor Everyday physical activity, ability: Moderately Fatigue: Moderate Pain level: 6 General health: Poor Social activities/roles, ability: Fair Physical Health T-Score (Poor) Physical Health Percentile 7 PROMIS Global Health Mental Health Summary Quality of life: Poor Mental health (mood,thinking): Poor Social satisfaction: Poor Emotional problems (anxious,depressed): Often Mental Health T-Score (Poor) Mental Health Percentile 1 Assessment Assessment: Yesica Humphrey is a 39 year old female who is 12 weeks status post ileostomy closure and pentecostalism of intestinal continuity Plan Plan: 1. Crohn's disease of both small and large intestine with other complication (HCC) (K50.818) 2. 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 Abdominal bloating (R14.0) Crohn's disease with short bowel syndrome (80 cm small bowel remaining, colon in continuity) and chronic abdominal bloating since surgery. Currently on TPN 5 days/week , with reduced frequency from 7days/week. Oral intake remains low (often 1 meal/day), with poor appetite attributed to high TPN caloric load. Bowel movements 5+ times/day, no incontinence. Bloating and emesis (up to 8 times/week) persist, with some improvement. Currently on full-dose Skyrizi; colonoscopy scheduled with Dr. Roach 08/09. - Contact Dr. Mike (nutrition) to discuss further TPN weaning and caloric reduction to stimulate appetite and increase oral intake. - Advised patient to discontinue Lomotil and Imodium due to risk of worsening bloating. - Continue dicyclomine and amitriptyline as prescribed. - Contact Dr. Hoover to discuss possible repeat CT enterography to assess for ongoing inflammation or other causes of bloating; defer to his judgment prior to colonoscopy. - Educated patient on potential impact of high TPN calories on appetite and the importance of increasing oral intake. - Follow-up with RIVER Eason on 06/19 (visit converted to virtual). 4. Encounter for adjustment and management of vascular access device (Z45.2) TPN line site with non-dissolved suture protruding through skin; no evidence of infection or other complications. - Advised patient to have home nurse monitor suture site during dressing changes; no intervention needed unless site changes. Elsy Rousseau DO documented in this encounter Plan of Treatment DateTypeDepartmentCare Team (Latest Contact Info)Udsproemawr37/08/2025 1:00 PM ESTAdcare Hospital Of WorcestertanApps [facility] [address] [place] [address] [phone] Bubba Johnson PSYD [address] [place], [place] [phone] follow up 7 sessions 4 of 3:00 PM ESTOhiohealth [facility] G[facility] [address] [address] Berna Mike DO [address] [place], [place] [phone] virtual visit/HPN/No RD qvabniitx91/15/2025 11:00 AM ESTBayhealth Hospital, Sussex CampusApp[facility] [address] [place] [address] [phone] Bubba Jhonson PSYD [address] [place] [address] follow up 7 sessions 6 of 11:00 AM ESTOhiohealth [facility] Colorectal Surgery [address] [address] Patricia Dubose APRN.FEATHER MAKER [address] [place] [place] [facility] [place] [address] follow up06/25/2025 11:00 AM ESTOhiohealth [facility]ville [facility] Psychology [address] [place] [phone] Bubba Johnson PSYD [address] [place] [address] follow up 7 sessions 7 of 1:00 PM ESTOhiohealth Nelsonville [facility] Psychology [address] [place] [phone] Bubba Johnson PSYD [address] [place] [address] follow up 7 sessions 5 of 11:00 AM ESTSpecialty Pharmacy [facility] [address] [place], [place] [id number] [place] [phone] Pharmacist, [facility] [address] [place] [phone] rufino Mensah (58D) - Rita 03/12/26- [place] 1:15 PM [facility] Vascular Medicine [address] [place] [address] Mariam Kenny PA-C [address] [place] [address] DX: DVT08/09/2025 10:30 AM ESTAppointment Gastroenterology [address] [place] [phone] Abebe Baca MD, PhD [address] [place], [place] [phone] Crohn's disease with complication, unspecified gastrointestinal tract location (...documented as of this encounter Goals GoalPatient Goal TypeAssociated ProblemsRecent ProgressPatient-Stated?Author Blood Pressure < 130/80 Blood Sgpaihyi897/67(05/01/2025 1:49 PM EDT)Mariam Cheney PA-Cdocumented as of this encounter Visit Diagnoses Diagnosis Crohn's disease of both small and large intestine with other complication (HCC) Abdominal bloating Flatulence, eructation, and gas pain Encounter for adjustment and management of vascular access device 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
--- OUTSIDE RECORDS SUMMARY | 2025-05-28 16:00 | XMS_ITS | Encounter Summary ---
Author Organization [facility] Address [address] [place] [address] Care Team Providers Care Full Stack Php Developer Name Role Phone Berna Mike DO Unavailable Source Comments In the event this information is protected by the Federal Confidentiality of Alcohol and Drug AbusePatient Records regulations: The Federal rules restrict any use of the information to criminally investigate or prosecute any alcohol or drug abuse patient.[facility] Reason for Visit * ReasonCommentsFollow Up Encounter Details DateTypeDepartmentCare Team (Latest Contact Info)Qdwchztiwpq37/24/2025 4:00 PM ESTDistance Health Psychology [address] [place] [address] Bubba Johnson PSYD [address] [place] [address] Major depressive disorder, recurrent episode, moderate with anxious distress (HCC) (Primary Dx); Psychological factor affecting physical condition; Crohn's disease with complication, unspecified gastrointestinal tract location (HCC); Other fatigue Social History Tobacco UseTypesPacks/DayYears UsedDateSmoking Tobacco: NeverPassive Smoke Exposure: CurrentSmokeless Tobacco: Never Passive Exposure Comments:Mitchell pyle smokes out side per pt 02/14/2025 Alcohol UseStandard Drinks/WeekCommentsNot Currently0 (1 standard drink = 0.6 oz pure alcohol)PHQ-2AnswerDate RecordedPHQ-2 wtfow50907/28/2024Housing Stability Vital SignAnswerDate RecordedIn the last 12 months, was there a time when you were not able to pay the mortgage or rent on time?No09/03/2024Number of Times Moved in the Last YearNot on file09/03/2024t any time in the past 12 months, were you homeless or living in a fci (including now)?No09/03/2024Hunger Vital SignAnswerDate RecordedWithin the past 12 months, you worried that your food would run out before you got the money to buymore.Never true02/16/2025 Within the past 12 months, the food you bought just didn't last and you didn't have money to get more.Never true02/16/2025PRAPARE - TransportationAnswerDate RecordedIn the past 12 months, has lack of transportation kept you from medical appointments or from getting medications?02/16/2025In the past 12 months, has lack of transportation kept you from meetings, work, or from getting things needed for daily living?02/16/2025Housing Stability Vital SignAnswerDate RecordedIn the last 12 months, was there a time when you were not able to pay the mortgage or rent on time?02/16/2025Number of Times Moved in the Last Year Not on file02/16/2025 any time in the past 12 months, were you homeless or living in a fci (including now)?02/16/2025HC UtilitiesAnswerDate Recorded In the past 12 months has the electric, gas, oil, or water company threatened to shut off services in your home?02/16/2025rea Deprivation IndexAnswerDate RecordedNational Score (1-100), lower number is lower phkp179707/31/2024State Score (1-10), lower number is lower rays73207/31/2024Data from: https://www.providence hospitalatlas.[facility]/. Last address used for [address]07/31/2024CommentsNoSex and Gender Information ValueDate RecordedSex Assigned at BirthNot on fileLegal RdrEqccod44/18/2025 1:54 PM ESTGender IdentityNot on fileSexual OrientationNot on filedocumented as of this encounter Functional Status * Are you deaf or do you have serious difficulty hearing?AnswerDate of IboymwnzijVssjyoUl46/26/2025 2:38 PM Hanane Benitez RN * Are you blind or do you have serious difficulty seeing, even when wearing glasses?AnswerDate of ZpkvwlamoxQcgxdsHq25/26/2025 2:38 PM Hanane Benitez RN * Do you have serious difficulty walking or climbing stairs?AnswerDate of FaepxcukrbSmzhgbYr09/26/2025 2:38 PM Hanane Benitez RN * Do you have difficulty dressing or bathing?AnswerDate of AssessmentAuthorNo 08/30/2024 2:38 PM Hanane Benitez RN * Because of a physical, mental, or emotional condition, do you have difficulty doing errands alone such as visiting a doctor's office or shopping?AnswerDate of BeqlbqniptOgwlnuTr71/26/2025 2:38 PM Hanane Benitez RN documented as of this encounter Mental Status * Because of a physical, mental, or emotional condition, do you have serious difficulty concentrating, remembering, or making decisions?AnswerEntry Date QlfzedLv89/26/2025 2:38 PM Hanane Benitez RN documented in this encounter Progress Notes * Bubba Johnson PSYD - 05/28/2025 4:06 PM EST Images from the original note were not included. [facility] FOLLOW-UP May 28, 2025 Yesica Humphrey CPT Code: 13252 Psychotherapy 16-37 minutes Time initiated session: 4:06 PM to 4:29 PM Session #: 2 Collateral Parties Present: none. I have communicated my name and active licensure. The patient's identity and physical location wereverified at the time of this visit. Either the patient or their legal indirect sales representative has been informed of the risks and benefits of -- and alternatives to -- treatment through a remote evaluation andconsents to proceed with the evaluation remotely. Subjective: The patient has been working on the following: Pt noted that since last session symptoms were unchanged. Pt discussed enragement in gut-directed hypnosis and engaged in session 1. Pt noted feeling very relaxed and well after. Objective: Patient was seen virtually via synchronized teleconfrence The patient was casually attired. She was cooperative with the interview process. The patient had good eye contact. Appearance: Casually dressed Behavior: Behaves appropriately during the encounter Social Relatedness: Good and Appropriate for age and developmental level Speech: The patient demonstrates appropriate tone, prosody, shruti, phonetics, and syntax Mood:Anxious/Nervousness Affect: Full and appropriate to topic Thought Content: The patient displays thought content appropriate to the interview. Thought Process:The thought process is appropriate for situation Hallucinations: No perceptual disturbances Delusions: No delusional thinking is evident Suicidal Ideas/Plans: The patient denies suicidal ideation, intent or plan Homicidal Ideas/Plans: Patient denies any homicidal ideation, plan or intent at this time. Anxiety: The patient is demonstrating anticipatory anxieties Orientation: Person, Place, Time and Situation Memory: Recent intact, Remote intact, and Immediate intact Concentration: Good Attention: The patient demonstrated full attention and focus throughout the interview Fund of Knowledge: Good and Appropriate for age and developmental level Judgment: Demonstrates age appropriate judgment Insight: aware of problem, admits to problem, and realizes severity of problem The patient's motivation for treatment was judged to be good. Assessment: Patient Data Generalized Anxiety Disorder Scale (JAYLENE-7) 03/15/2025 05/28/2025 JAYLENE - 7 SCORES Score 13 7 7 (0-4) minimal anxiety, (5-9) mild anxiety, (10-14) moderate anxiety, (15-21) severe anxiety Patient Health Questionnaire (PHQ-9) 03/15/2025 05/28/2025 PHQ-9 Score 18 12 12 (0-4) minimal depression, (5-9) mild depression, (10-14) moderate depression, (15-19) moderately severe depression, (20-27) severe depression PROMIS Global Health 09/28/2024 03/15/2025 PROMIS Global Health - (T-Scores - the mean of general population = 50. Five points is a clinicallymeaningful difference.) Physical T-Score 32.4 32.4 34.9 Mental T-Score 28.4 28.4 25.1 Current Outpatient Medications Medication Sig enoxaparin (LOVENOX) 100 mg/mL syrg Inject 0.975 mL subcutaneously once daily. Please inject full contents of syringe daily. OTC PRODUCT Probiotic powder Cholecalciferol, Vitamin D3, (VITAMIN D) 25 mcg (1,000 unit) cap Take 1 capsule by mouth once daily. Simethicone (GAS-X EXTRA STRENGTH) 125 mg chewable tablet Take 1 tablet by mouth every 6 hours as needed. ondansetron orally disintegrating (ZOFRAN ODT) 4 mg disintegrating tablet Take 1 tablet by mouth every 12 hours as needed for nausea/vomiting. risankizumab-rzaa (SKYRIZI) 360 mg/2.4 mL (150 mg/mL) [...] available (Patient not taking: Reported on 03/30/2025) pantoprazole DR (PROTONIX) 40 mg tablet Take [...] No current facility-administered medications for this visit. Medication Changes: No change in medications Diagnoses: F33.1 Major depressive disorder, recurrent episode, moderate with anxious distress (HCC) F54 Psychological factor affecting physical condition K50.919 Crohn's disease with complication, unspecified gastrointestinal tract location (HCC) R53.83 Other fatigue Plan/Recommendations: 1) The patient may benefit from the following training in the processes of acceptance and commitment therapy and 7 sessions of gut-directed hypnosis to increase psychological flexibility around symptoms, reduce visceral sensitivity. 2) PLAN FOR NEXT SESSION: Continue current treatment Expand present- moment awareness Practice relaxation techniques/ biofeedback Number of weeks till next appointment: 1. Trainee signature (if applicable): Supervising Licensed Psychologist & Billing Provider: Bubba Johnson PSYD documented in this encounter Plan of Treatment DateTypeDepartmentCare Team (Latest Contact Info)Sfftexwxjth31/08/2025 1:00 PM [facility] [address] [place] [address] Bubba Johnson PSYD [address] [place] [address] follow up 7 sessions 4 of 3:00 PM [facility] Gastroenterology [address] [address] Berna Mike DO [address] [place] [address] virtual visit/HPN/No RD jwtlwufkm58/15/2025 11:00 AM [facility] [address] [place] [address] Bubba Johnson PSYD [address] [place] [address] follow up 7 sessions 6 of 11:00 AM [facility] Colorectal Surgery [address] [address] Patricia Dubose APRN.DEVELOPER PROGRAMMER [address] [facility] [place], [place] [phone] follow up06/25/2025 11:[facility] [address] [place], [place] [phone] ElizabethBubba PS [address] [place] [address] follow up 7 sessions 7 of 1:00 [facility] [address] [place] [address] Bubba Johnson PSYD [address] [place], [place] [phone] follow up 7 sessions 5 of 11:00 AM ESTSpecialty Pharmacy [facility] [address] [place] [address] [phone] Pharmacist, Specialtygroup [address] [place] [phone] rufino Mensah (58D) - PAx 03/12/26- ND 1:15 PM [facility] Vascular Medicine [address] [place] [address] Mariam Kenny PA-C [address] [place], [place] [phone] DX: DVT08/09/2025 10:30 AM ESTAppointment Gastroenterology [address] [place] [address] Abebe Baca MD, PhD [address] [place] [address] Crohn's disease with complication, unspecified gastrointestinal tract location (...documented as of this encounter Goals GoalPatient Goal TypeAssociated ProblemsRecent ProgressPatient-Stated?Author Blood Pressure < 130/80 Blood Laiuyjlz150/67(05/01/2025 1:49 PM EDT)Mariam Cheney PA-Cdocumented as of this encounter Visit Diagnoses Diagnosis Major depressive disorder, recurrent episode, moderate with anxious distress (HCC)- Primary Psychological factor affecting physical condition Psychic factors associated with diseases classified elsewhere Crohn's disease with complication, unspecified gastrointestinal tract location (HCC) Other fatigue documented in this encounter Care Teams Team MemberRelationshipSpecialtyStart DateEnd Date Berna Mike DO [address] [place] [address] Home Parenteral Nutrition ProviderGastroenterology08/08/24 Community Resourse Community Resource02/16/25documented as of this encounter
--- OUTSIDE RECORDS SUMMARY | 2025-06-04 14:24 | XMS_ITS | Clinical Summary ---
Author Organization [facility] Address [address] [place] [address] Care Team Providers Care Public Welfare Worker Name Role Phone Unavailable Primary Care Provider Unavailabl e Social History Tobacco UseTypesPacks/DayYears UsedDateSmoking Tobacco: Never Assessed CommentsUnknownSex and Gender InformationValueDate RecordedSex Assigned at Not on fileLegal YbnIiezml54/04/2023 12:16 PM EDTGender IdentityNot on file Sexual OrientationNot on file Last Filed Vital Signs Vital SignReadingTime TakenCommentsBlood Jmxmdbkn149/68010/02/2022 12:00 PM EDT Pulse--Temperature--Respiratory Rate--Oxygen Saturation--Inhaled Oxygen Concentration--Zpnajw97.9 kg (121 lb)10/02/2022 12:00 PM LOEVshfyv042.2 cm (5' 7 )10/02/2022 12:00 PM EDTBody Mass Index18.95010/02/2022 12:00 PM EDT Plan of Treatment Not on file
--- OUTSIDE RECORDS SUMMARY | 2025-06-04 14:25 | XMS_ITS | Encounter Summary ---
Author Organization [facility] Address [address] [place] [address] Care Team Providers Care Paper Twister Name Role Phone Berna Mike DO Unavailable Source Comments In the event this information is protected by the Federal Confidentiality of Alcohol and Drug AbusePatient Records regulations: The Federal rules restrict any use of the information to criminally investigate or prosecute any alcohol or drug abuse patient.[facility] Reason for Visit * ReasonCommentsResults Encounter Details DateTypeDepartmentCare Team (Latest Contact Info)Futqailskvb98/19/2025Telephone Gastroenterology [address] [phone] Section Gang Worker, Hpn [address] [place] [phone] Results Social History Tobacco UseTypesPacks/DayYears UsedDateSmoking Tobacco: NeverPassive Smoke Exposure: CurrentSmokeless Tobacco: Never Passive Exposure Comments:Mitchell pyle smokes out side per pt 02/14/2025 Alcohol UseStandard Drinks/WeekCommentsNot Currently0 (1 standard drink = 0.6 oz pure alcohol)PHQ-2AnswerDate RecordedPHQ-2 qurkf109Housing Stability Vital SignAnswerDate RecordedIn the last 12 months, was there a time when you were not able to pay the mortgage or rent on time?No09/03/2024Number of Times Moved in the Last YearNot on file09/03/2024t any time in the past 12 months, were you homeless or living in a jail (including now)?No09/03/2024Hunger Vital SignAnswerDate RecordedWithin the past [...] or from getting things needed for daily living?No02/16/2025Housing Stability Vital SignAnswerDate RecordedIn the last 12 months, was there a time when you were not able to pay the mortgage or rent on time?No02/16/2025Number of Times Moved in the Last Year Not on file02/16/2025t any time in the past 12 months, were you homeless or living in a jail (including now)?No02/16/2025HC UtilitiesAnswerDate Recorded In the past 12 months has the [employer], gas, oil, or water [employer] threatened to shut off services in your home?No02/16/2025rea Deprivation IndexAnswerDate RecordedNational Score (1-100), lower number is lower wgbj449707/31/2024State Score (1-10), lower number is lower cblr96907/31/2024Data from: https://www.neighborhoodatlas.medicine.[facility].edu/. Last address used for [address] 07/31/2024CommentsNoSex and Gender Information ValueDate RecordedSex Assigned at BirthNot on fileLegal DkcDvbzib92/18/2025 1:54 PM ESTGender IdentityNot on fileSexual OrientationNot on filedocumented as of this encounter Functional Status * Are you deaf or do you have serious difficulty hearing?AnswerDate of QctnssvlauWbqfizNz83/26/2025 2:38 PM Hanane Benitez RN * Are you blind or do you have serious difficulty seeing, even when wearing glasses?AnswerDate of ZhrlfbszcdYdyozbFa84/26/2025 2:38 PM Hanane Benitez RN * Do you have serious difficulty walking or climbing stairs?AnswerDate of BamqbucdquLkbpixYx85/26/2025 2:38 PM Hanane Benitez RN * Do you have difficulty dressing or bathing?AnswerDate of AssessmentAuthorNo 08/30/2024 2:38 PM Hanane Benitez RN * Because of a physical, mental, or emotional condition, do you have difficulty doing errands alone such as visiting a doctor's office or shopping?AnswerDate of VopdqemmvsZwinyeXu95/26/2025 2:38 PM Hanane Benitez RN documented as of this encounter Mental Status * Because of a physical, mental, or emotional condition, do you have serious difficulty concentrating, remembering, or making decisions?AnswerEntry Date QdnhgiHu65/26/2025 2:38 PM Hanane Benitez RN documented in this encounter Miscellaneous Notes * Telephone Encounter - Jaimie Davis RD - 05/23/2025 1:21 PM EST Home Nutrition Support Service Routine labs stable -do not reflect a full week of 5 day regimen. Rec: labs in 2 weeks to avoid holiday (pt is also traveling). Assess ability to further wean Jaimie PEREZ, DENISE, LD, CNSC documented in this encounter Plan of Treatment DateTypeDepartmentCare Team (Latest Contact Info)Hojyubaacze73/08/2025 1:00 PM [facility] [address] [place], [place] [phone] Elizabeth, Bubba, PSYD [address] [place] [address] follow up 7 sessions 4 of 3:00 PM EST[facility] [address] [address] Berna Mike DO [address] [place] [address] virtual visit/HPN/No RD /15/2025 11:00 AM [facility] [address] [place] [address] Bubba Johnson, CESARYD [address] [place] [address] follow up 7 sessions 6 of 11:[address] [facility] [address] [address] Patricia Dubose, DIONISIO.COMPENSATION CONSULTING MANAGER [address] [facility] [place] [address] follow up06/25/2025 11:00 AM [facility] [address] [place] [address] Bubba Johnson, PSYD [address] [place] [address] follow up 7 sessions 7 of 1:00 PM [facility] [address] [place] [address] Bubba Johnson, PSYD [address] [place] [address] follow up 7 sessions 5 of 11:00 AM ESTSpecialty Pharmacy [facility] [place] [address] Pharmacist, Specialtygroup 2 [facility] [place] [address] rufino Mensah (58D) - PAx 03/12/26- ND 1:15 PM [facility] Vascular Medicine [address] [place], [place] [phone] Mariam Kenny PA-C [address] [place], [place] [phone] DX: DVT08/09/2025 10:30 AM ESTAppointment Gastroenterology [address] [place] [address] Abebe Baca MD, PhD [address] [place], [place] [phone] Crohn's disease with complication, unspecified gastrointestinal tract location (...documented as of this encounter Goals GoalPatient Goal TypeAssociated ProblemsRecent ProgressPatient-Stated?Author Blood Pressure < 130/80 Blood Efzbwcip433/67(05/01/2025 1:49 PM EDT)Mariam Cheney PA-Cdocumented as of this encounter Visit Diagnoses Not on filedocumented in this encounter Care Teams Team MemberRelationshipSpecialtyStart DateEnd Date Berna Mike DO [address] [place] [address] Home Parenteral Nutrition ProviderGastroenterology08/08/24 Community Resourse Community Resource02/16/25documented as of this encounter
--- OUTSIDE RECORDS SUMMARY | 2025-06-04 14:25 | XMS_ITS | Encounter Summary ---
Author Organization [facility] Address [address] [place] [address] Care Team Providers Care Wire Saw Operator Name Role Phone Rashid Berna DO Unavailable Source Comments In the event this information is protected by the Federal Confidentiality of Alcohol and Drug AbusePatient Records regulations: The Federal rules restrict any use of the information to criminally investigate or prosecute any alcohol or drug abuse patient.[facility] Encounter Details DateTypeDepartmentCare Team (Latest Contact Info)Tqpxxmcqxlx02/19/2025 Patient Msg Gastroenterology [address] [id number] Provider, [facility] Dr. Mike appointment Social History Tobacco UseTypesPacks/DayYears UsedDateSmoking Tobacco: NeverPassive Smoke Exposure: CurrentSmokeless Tobacco: Never Passive Exposure Comments:Mitchell pyle smokes out side per pt 02/14/2025 Alcohol UseStandard Drinks/WeekCommentsNot Currently0 (1 standard drink = 0.6 oz pure alcohol)PHQ-2AnswerDate RecordedPHQ-2 rttqw709Housing Stability Vital SignAnswerDate RecordedIn the last 12 months, was there a time when you were not able to pay the mortgage or rent on time?No09/03/2024Number of Times Moved in the Last YearNot on file09/03/2024 any time in the past 12 months, were you homeless or living in a senior care (including now)?No09/03/2024Hunger Vital SignAnswerDate RecordedWithin the past [...] were you homeless or living in a senior care (including now)?02/16/2025HC UtilitiesAnswerDate Recorded In the past 12 months has the electric, gas, oil, or water company threatened to shut off services in your home?02/16/2025rea Deprivation IndexAnswerDate RecordedNational Score (1-100), lower number is lower gnbx379507/31/2024State Score (1-10), lower number is lower qwcp95607/31/2024Data from: https://www.neighborhoodatlas.medicine.[facility].edu/. Last address used for m[address] 07/31/2024CommentsNoSex and Gender Information ValueDate RecordedSex Assigned at BirthNot on fileLegal WlkIbslpm76/18/2025 1:54 PM ESTGender IdentityNot on fileSexual OrientationNot on filedocumented as of this encounter Functional Status * Are you deaf or do you have serious difficulty hearing?AnswerDate of TzderycsxcGazlxuXg85/26/2025 2:38 PM Hanane Benitez RN * Are you blind or do you have serious difficulty seeing, even when wearing glasses?AnswerDate of CcwahhtpjpWcpkbrNa28/26/2025 2:38 PM Hanane Benitez RN * Do you have serious difficulty walking or climbing stairs?AnswerDate of WtgkjxxsaeAtcknsKh16/26/2025 2:38 PM Hanane Benitez RN * Do you have difficulty dressing or bathing?AnswerDate of AssessmentAuthorNo 08/30/2024 2:38 PM Hanane Benitez RN * Because of a physical, mental, or emotional condition, do you have difficulty doing errands alone such as visiting a doctor's office or shopping?AnswerDate of BrtjcioclqRpfzslWw57/26/2025 2:38 PM Hanane Benitez RN documented as of this encounter Mental Status * Because of a physical, mental, or emotional condition, do you have serious difficulty concentrating, remembering, or making decisions?AnswerEntry Date DiilrhQd73/26/2025 2:38 PM Hanane Benitez RN documented in this encounter Plan of Treatment DateTypeDepartmentCare Team (Latest Contact Info)Iucruzxoznt63/08/2025 1:00 PM [facility] [address] [place] [address] Bubba Johnson PSYD [address] [place] [address] follow up 7 sessions 4 of 3:00 PM [facility] [address] [address] Berna Mike DO [address] [place] [address] virtual visit/HPN/No RD lulzzunsv63/15/2025 11:00 AM ESTEn[facility] [address] [place] [address] Bubba Johnson, CESARYD [address] [place] [address] follow up 7 sessions 6 of 11:00 AM [facility] [address] [address] Patricia Dubose APRN.[employer] [address] [facility] [place] [address] follow up06/25/2025 11:00 AM [facility] [address] [address] Bubba Johnson, CESARYD [address] [place] [address] follow up 7 sessions 7 of 1:00 PM [facility] [address] [address] Bubba Johnson, CESARYD [address] [place] [address] follow up 7 sessions 5 of 11:00 AM ESTSpecialty Pharmacy [facility] [address] [place], [place] [phone] [place] [address] Pharmacist, [facility] [address] [place] [address] rufino Mensah (58D) - Rita 03/12/26- [place] 1:15 PM [facility] [address] [place] [address] Mariam Kenny PA-C [address] [place] [address] DX: DVT08/09/2025 10:30 AM ESTAppointment Gastroenterology [address] [place] [address] Abebe Baca MD, PhD [address] [place] [address] Crohn's disease with complication, unspecified gastrointestinal tract location (...documented as of this encounter Goals GoalPatient Goal TypeAssociated ProblemsRecent ProgressPatient-Stated?Author Blood Pressure < 130/80 Blood Lthxcgwk753/67(05/01/2025 1:49 PM EDT)Mariam Cheney PA-Cdocumented as of this encounter Visit Diagnoses Not on filedocumented in this encounter Care Teams Team MemberRelationshipSpecialtyStart DateEnd Date Berna Mike DO [address] [place] [address] Home Parenteral Nutrition ProviderGastroenterology08/08/24 Community Resourse Community Resource02/16/25documented as of this encounter
--- OUTSIDE RECORDS SUMMARY | 2025-06-04 14:25 | XMS_ITS | Clinical Summary ---
Author Organization [facility] Address [address] [place] [id number] Care Team Providers Care Senior Credit Analyst Name Role Phone Berna Mike DO Unavailable Allergies Active AllergyReactionsCriticalityNoted DateCommentsIbuprofenOther: See Comments 07/30/2024Nsaids (Non-Steroidal Anti-Inflammatory Drug)Other: See Comments 07/30/2024 Medications MedicationSigDispense QuantityRefillsLast FilledStart DateEnd DateStatus hydrOXYzine HCl (ATARAX) 25 mg tablet Take 25 mg by mouth three times a day as needed for anxiety.Active citalopram (CELEXA) 40 mg tablet Take 40 mg by mouth once daily.Active amitriptyline (ELAVIL) 25 mg tablet Take 25 mg by mouth daily at bedtime.Active dicyclomine (BENTYL) 10 mg capsule Take 10 mg by mouth three times a day.Active pantoprazole DR (PROTONIX) 40 mg tablet Take 1 tablet by mouth once daily. 30 tablet 12:15 PM EST5Active promethazine (PHENERGAN) 25 mg tablet Take 1 tablet by mouth every 6 hours as needed for nausea/vomiting (second line). 30 tablet 08/08/2024 12:15 PM EST5Active acetaminophen (TYLENOL) 650 mg/20.3 mL soln Take 20.3 mL by mouth every 6 hours as needed for pain. Do not exceed 5 doses in 24 hours.5Active naloxone 4 mg/actuation nasal spray (NARCAN) Use 1 spray in one nostril as needed for overdose. May repeat every 2 to 3 min in alternating nostrils until medical assistance is available 2 each 2:47 PM EDT5Active Additional Information Patient not taking.Reported on 03/30/2025 risankizumab-rzaa (SKYRIZI) 360 mg/2.4 mL (150 mg/mL) wearable injector Indications:Crohn's disease of small and large intestines with complication (HCC)Inject 360 mg subcutaneously every 8 weeks. Start 4 weeks after the last infusion dose. 2.4 mL 11:48 AM EST5Active ondansetron orally disintegrating (ZOFRAN ODT) 4 mg disintegrating tablet Indications:Crohn's disease of both small and large intestine with abscess (HCC) ,NauseaTake 1 tablet by mouth every 12 hours as needed for nausea/vomiting. 60 tablet 5Active OTC PRODUCT Probiotic [id number] Cholecalciferol, Vitamin D3, (VITAMIN D) 25 mcg (1,000 unit) cap Take 1 capsule by mouth once daily. 90 capsule 5Active Simethicone (GAS-X EXTRA STRENGTH) 125 mg chewable tablet Take 1 tablet by mouth every 6 hours as needed. 180 tablet 5Active enoxaparin (LOVENOX) 100 mg/mL syrg Indications:History of DVT (deep vein thrombosis),Anticoagulation management encounterInject 0.975 mL subcutaneously once daily. Please inject full contents of syringe daily. 30 each 5Active enoxaparin (LOVENOX) 100 mg/mL syrg Inject 0.975 mL subcutaneously once daily. Please inject full contents of syringe daily. 30 each 5107/07/2024Discontinued Active Problems ProblemNoted DateDiagnosed DateIleus following gastrointestinal surgery 02/19/2025 Assessment & Plan (02/21/2025 2:04 PM EDT): PLAN: NG tube removed (02/21) Assessment & Plan (02/20/2025 1:24 PM EDT): PLAN: Continue NG tube, await ROBF History of DVT (deep vein thrombosis)02/16/2025 Assessment & Plan (02/21/2025 2:03 PM EDT): PLAN: DVT ppx and IPCs Consult vascular medicine for AC recs Assessment & Plan (02/20/2025 1:24 PM EDT): PLAN: DVT ppx and IPCs Consult vascular medicine for AC recs Assessment & Plan (02/19/2025 10:52 AM EDT): PLAN: DVT ppx and IPCs Consult vascular medicine for AC recs Assessment & Plan (02/16/2025 12:05 PM EDT): PLAN: DVT ppx and IPCs Confirm if patient is on AC at home Attention to nbhvpcepe36/14/2025 Assessment & Plan (02/21/2025 2:03 PM EDT): PLAN: S/p Exploratory laparotomy, lysis of adhesions, takedown of end ileostomy, creation of end to side ileocolic anastomosis (02/15/25) Assessment & Plan (02/20/2025 1:24 PM EDT): PLAN: S/p Exploratory laparotomy, lysis of adhesions, takedown of end ileostomy, creation of end to side ileocolic anastomosis (02/15/25) Assessment & Plan (02/19/2025 10:51 AM EDT): PLAN: S/p Exploratory laparotomy, lysis of adhesions, takedown of end ileostomy, creation of end to side ileocolic anastomosis (02/15/25) Assessment & Plan (02/16/2025 12:02 PM EDT): PLAN: S/p Exploratory laparotomy, lysis of adhesions, takedown of end ileostomy, creation of end to side ileocolic anastomosis (02/15/25) Crohn's disease of small and large intestines with dugpnxxbgbzv53/02/2025 Assessment & Plan (02/21/2025 2:03 PM EDT): PLAN: S/p Exploratory laparotomy, lysis of adhesions, takedown of end ileostomy, creation of end to side ileocolic anastomosis (02/15/25) Assessment & Plan (02/20/2025 1:24 PM EDT): PLAN: S/p Exploratory laparotomy, lysis of adhesions, takedown of end ileostomy, creation of end to side ileocolic anastomosis (02/15/25) Assessment & Plan (02/19/2025 10:51 AM EDT): PLAN: S/p Exploratory laparotomy, lysis of adhesions, takedown of end ileostomy, creation of end to side ileocolic anastomosis (02/15/25) Assessment & Plan (02/16/2025 12:05 PM EDT): PLAN: S/p Exploratory laparotomy, lysis of adhesions, takedown of end ileostomy, creation of end to side ileocolic anastomosis (02/15/25) Pain09/14/2024entral venous catheter in place09/14/2024 Assessment & Plan (02/21/2025 2:03 PM EDT): PLAN: For home TPN Assessment & Plan (02/20/2025 1:24 PM EDT): PLAN: For home TPN Assessment & Plan (02/19/2025 10:51 AM EDT): PLAN: For home TPN Assessment & Plan (02/16/2025 12:05 PM EDT): PLAN: For home TPN Acute deep vein thrombosis (DVT) of left upper eivecdxmm79/01/2025ute deep vein thrombosis (DVT) of left upper extremity, unspecified vein09/02/2024High output wbivttaxv67/25/2025 Assessment & Plan (08/29/2024 2:23 PM EST): PLAN: Monitor Is/Os Add imodium 4mg ACHS Add lomotil 2.5 mg ACHS Add fiber BID Acute deep vein thrombosis (DVT) of brachial vein of right upper extremity 08/28/2024 Assessment & Plan (08/29/2024 2:21 PM EST): PLAN: Consult vascular medicine, appreciate recs [place] lovenox Assessment & Plan (08/29/2024 2:20 PM EST): PLAN: Consult vascular medicine, appreciate recs [place] lovenox Acute deep vein thrombosis (DVT) of axillary vein of right upper extremity 08/28/2024 Assessment & Plan (08/29/2024 2:21 PM EST): PLAN: Consult vascular medicine, appreciate recs [place] lovenox Assessment & Plan (08/29/2024 2:20 PM EST): PLAN: Consult vascular medicine, appreciate recs [place] lovenox Anticoagulation management /24/2025 Assessment & Plan (08/29/2024 2:21 PM EST): PLAN: Consult vascular medicine, appreciate recs [place] lovenox Assessment & Plan (08/29/2024 2:20 PM EST): PLAN: Consult vascular medicine, appreciate recs [place] lovenox Acute postoperative anemia due to expected blood loss08/23/2024 Assessment & Plan (08/29/2024 2:20 PM EST): PLAN: Monitor CBC Monitor for s/s Transfuse if hgb <7 or symptomatic Assessment & Plan (08/24/2024 11:29 AM EST): PLAN: Monitor CBC Monitor for s/s Transfuse if hgb <7 or symptomatic Assessment & Plan (08/23/2024 7:40 AM EST): PLAN: Monitor CBC Monitor for s/s Transfuse if hgb <7 or symptomatic Acute postoperative pain08/21/2024 Assessment & Plan (02/21/2025 2:04 PM EDT): PLAN: [facility] Assessment & Plan (02/20/2025 1:24 PM EDT): PLAN: [facility] Assessment & Plan (02/19/2025 10:52 AM EDT): PLAN: [facility] Assessment & Plan (02/16/2025 12:02 PM EDT): PLAN: [facility] Assessment & Plan (08/29/2024 2:22 PM EST): PLAN: [facility] Consult APMS for repeat TAP block, hold off for now Assessment & Plan (08/29/2024 2:21 PM EST): PLAN: [facility] Consult APMS for repeat TAP block, hold off for now Assessment & Plan (08/24/2024 11:30 AM EST): PLAN: [facility] Consult APMS for repeat TAP block, hold off for now Assessment & Plan (08/23/2024 7:39 AM EST): PLAN: [facility] Consult APMS for repeat TAP block, hold off for now Assessment & Plan (08/22/2024 8:48 AM EST): PLAN: [facility] Consult APMS for repeat TAP block, hold off for now Assessment & Plan (08/21/2024 2:49 PM EST): PLAN: [facility] Consult APMS for repeat TAP block, hold off for now Difficult intravenous gmapeh9908/21/2024 Assessment & Plan (08/29/2024 2:22 PM EST): PLAN: PICC line placed (08/21) Assessment & Plan (08/29/2024 2:21 PM EST): PLAN: PICC line placed (08/21) Assessment & Plan (08/24/2024 11:29 AM EST): PLAN: PICC line placed (08/21) Assessment & Plan (08/23/2024 7:39 AM EST): PLAN: PICC line placed (08/21) Assessment & Plan (08/22/2024 8:48 AM EST): PLAN: PICC line placed (08/21) Assessment & Plan (08/21/2024 2:50 PM EST): PLAN: Awaiting PICC line placement Adjustment disorder with anxious mood08/21/2024 Assessment & Plan (02/21/2025 2:03 PM EDT): PLAN: Continue home elavil and celexa Assessment & Plan (02/20/2025 1:24 PM EDT): PLAN: Continue home elavil and celexa Assessment & Plan (02/19/2025 10:51 AM EDT): PLAN: Continue home elavil and celexa Assessment & Plan (02/16/2025 12:04 PM EDT): PLAN: Continue home elavil and celexa Assessment & Plan (08/29/2024 2:21 PM EST): PLAN: Consult psychology, appreciate recs Assessment & Plan (08/29/2024 2:20 PM EST): PLAN: Consult psychology, appreciate recs Assessment & Plan (08/24/2024 11:29 AM EST): PLAN: Consult psychology, appreciate recs Assessment & Plan (08/23/2024 7:39 AM EST): PLAN: Consult psychology, appreciate recs Assessment & Plan (08/22/2024 8:48 AM EST): PLAN: Consult psychology, appreciate recs Crohn's colitis, with intestinal /13/2025 Assessment & Plan (08/29/2024 2:22 PM EST): PLAN: S/p Exploratory laparotomy, excision of previous ileocolic anastomosis, end ileostomy (08/18/24) Assessment & Plan (08/29/2024 2:20 PM EST): PLAN: S/p Exploratory laparotomy, excision of previous ileocolic anastomosis, end ileostomy (08/18/24) Assessment & Plan (08/24/2024 11:29 AM EST): PLAN: S/p Exploratory laparotomy, excision of previous ileocolic anastomosis, end ileostomy (08/18/24) Assessment & Plan (08/23/2024 7:39 AM EST): PLAN: S/p Exploratory laparotomy, excision of previous ileocolic anastomosis, end ileostomy (08/18/24) Assessment & Plan (08/22/2024 8:48 AM EST): PLAN: S/p Exploratory laparotomy, excision of previous ileocolic anastomosis, end ileostomy (08/18/24) Assessment & Plan (08/21/2024 2:48 PM EST): PLAN: S/p Exploratory laparotomy, excision of previous ileocolic anastomosis, end ileostomy (08/18/24) Nicotine use disorder, F17. Assessment & Plan (02/21/2025 2:04 PM EDT): PLAN: Consider nicotine patches if needed Encourage cessation Assessment & Plan (02/20/2025 1:24 PM EDT): PLAN: Consider nicotine patches if needed Encourage cessation Assessment & Plan (02/19/2025 10:52 AM EDT): PLAN: Consider nicotine patches if needed Encourage cessation Assessment & Plan (02/16/2025 12:05 PM EDT): PLAN: Consider nicotine patches if needed Encourage cessation Assessment & Plan (08/29/2024 2:22 PM EST): PLAN: Consider nicotine patches, appreciate recs Assessment & Plan (08/29/2024 2:21 PM EST): PLAN: Consider nicotine patches, appreciate recs Assessment & Plan (08/24/2024 11:29 AM EST): PLAN: Consider nicotine patches, appreciate recs Assessment & Plan (08/23/2024 7:39 AM EST): PLAN: Consider nicotine patches, appreciate recs Assessment & Plan (08/22/2024 8:48 AM EST): PLAN: Consider nicotine patches, appreciate recs Assessment & Plan (08/21/2024 2:49 PM EST): PLAN: Consider nicotine patches, appreciate recs Small bowel tobmdcjsr65/01/2025 Assessment & Plan (08/29/2024 2:22 PM EST): PLAN: S/p Exploratory laparotomy, excision of previous ileocolic anastomosis, end ileostomy (08/18/24) Assessment & Plan (08/29/2024 2:21 PM EST): PLAN: S/p Exploratory laparotomy, excision of previous ileocolic anastomosis, end ileostomy (08/18/24) Assessment & Plan (08/24/2024 11:30 AM EST): PLAN: S/p Exploratory laparotomy, excision of previous ileocolic anastomosis, end ileostomy (08/18/24) Assessment & Plan (08/23/2024 7:39 AM EST): PLAN: S/p Exploratory laparotomy, excision of previous ileocolic anastomosis, end ileostomy (08/18/24) Assessment & Plan (08/22/2024 8:48 AM EST): PLAN: S/p Exploratory laparotomy, excision of previous ileocolic anastomosis, end ileostomy (08/18/24) Assessment & Plan (08/21/2024 2:50 PM EST): PLAN: S/p Exploratory laparotomy, excision of previous ileocolic anastomosis, end ileostomy (08/18/24) On total parenteral nutrition (TPN)07/31/2024 Assessment & Plan (02/21/2025 2:04 PM EDT): PLAN: Consult SUKHWINDERT, appreciate recs Assessment & Plan (02/20/2025 1:24 PM EDT): PLAN: Consult SUKHWINDERT, appreciate recs Assessment & Plan (02/19/2025 10:52 AM EDT): PLAN: Consult OSMEL, appreciate recs Assessment & Plan (02/16/2025 12:04 PM EDT): PLAN: Consult OSMEL, appreciate recs Assessment & Plan (08/29/2024 2:22 PM EST): PLAN: Consult OSMEL, appreciate recs Assessment & Plan (08/29/2024 2:21 PM EST): PLAN: Consult SUKHWINDERT, appreciate recs Assessment & Plan (08/24/2024 11:29 AM EST): PLAN: Consult OSMEL, appreciate recs Assessment & Plan (08/23/2024 7:39 AM EST): PLAN: Consult SUKHWINDERT, appreciate recs Assessment & Plan (08/22/2024 8:48 AM EST): PLAN: Consult SUKHWINDERT, appreciate recs Assessment & Plan (08/21/2024 2:52 PM EST): PLAN: Consult OSMEL, appreciate recs Feeding rttabpkjtxfd38/27/2025Therapeutic drug otrdarxgft46/27/2025Malnutrition of moderate tcepae5907/31/2024 Assessment & Plan (02/21/2025 2:03 PM EDT): PLAN: Consult OSMEL, appreciate recs Assessment & Plan (02/20/2025 1:24 PM EDT): PLAN: Consult OSMEL, appreciate recs Assessment & Plan (02/19/2025 10:52 AM EDT): PLAN: Consult SUKHWINDERT, appreciate recs Assessment & Plan (08/29/2024 2:22 PM EST): PLAN: Consult SUKHWINDERT, appreciate recs Assessment & Plan (08/29/2024 2:21 PM EST): PLAN: Consult OSMEL, appreciate recs Assessment & Plan (08/24/2024 11:30 AM EST): PLAN: Consult OSMEL, appreciate recs Assessment & Plan (08/23/2024 7:39 AM EST): PLAN: Consult OSMEL, appreciate recs Assessment & Plan (08/22/2024 8:48 AM EST): PLAN: Consult OSMEL, appreciate recs Assessment & Plan (08/21/2024 2:49 PM EST): PLAN: akosua De La Torre recs Partial small bowel lwyowvuvmqe22/26/2025 Assessment & Plan (08/29/2024 2:22 PM EST): PLAN: S/p Exploratory laparotomy, excision of previous ileocolic anastomosis, end ileostomy (08/18/24) Assessment & Plan (08/29/2024 2:21 PM EST): PLAN: S/p Exploratory laparotomy, excision of previous ileocolic anastomosis, end ileostomy (08/18/24) Assessment & Plan (08/24/2024 11:30 AM EST): PLAN: S/p Exploratory laparotomy, excision of previous ileocolic anastomosis, end ileostomy (08/18/24) Assessment & Plan (08/23/2024 7:39 AM EST): PLAN: S/p Exploratory laparotomy, excision of previous ileocolic anastomosis, end ileostomy (08/18/24) Assessment & Plan (08/22/2024 8:48 AM EST): PLAN: S/p Exploratory laparotomy, excision of previous ileocolic anastomosis, end ileostomy (08/18/24) Assessment & Plan (08/21/2024 2:50 PM EST): PLAN: S/p Exploratory laparotomy, excision of previous ileocolic anastomosis, end ileostomy (08/18/24) Assessment & Plan (08/04/2024 9:36 AM EST): See CORS plan above Crohn's disease of both small and large intestine with vjprchp6407/30/2024 Assessment & Plan (08/29/2024 2:22 PM EST): PLAN: S/p Exploratory laparotomy, excision of previous ileocolic anastomosis, end ileostomy (08/18/24) Assessment & Plan (08/29/2024 2:21 PM EST): PLAN: S/p Exploratory laparotomy, excision of previous ileocolic anastomosis, end ileostomy (08/18/24) Assessment & Plan (08/24/2024 11:29 AM EST): PLAN: S/p Exploratory laparotomy, excision of previous ileocolic anastomosis, end ileostomy (08/18/24) Assessment & Plan (08/23/2024 7:39 AM EST): PLAN: S/p Exploratory laparotomy, excision of previous ileocolic anastomosis, end ileostomy (08/18/24) Assessment & Plan (08/22/2024 8:48 AM EST): PLAN: S/p Exploratory laparotomy, excision of previous ileocolic anastomosis, end ileostomy (08/18/24) Assessment & Plan (08/21/2024 2:49 PM EST): PLAN: S/p Exploratory laparotomy, excision of previous ileocolic anastomosis, end ileostomy (08/18/24) Mood wszfirvt08/26/2025 Assessment & Plan (02/21/2025 2:03 PM EDT): PLAN: Continue home elavil and celexa Assessment & Plan (02/20/2025 1:24 PM EDT): PLAN: Continue home elavil and celexa Assessment & Plan (02/19/2025 10:52 AM EDT): PLAN: Continue home elavil and celexa Assessment & Plan (02/16/2025 12:04 PM EDT): PLAN: Continue home elavil and celexa Assessment & Plan (08/29/2024 2:22 PM EST): PLAN: Consult psychology, appreciate recs Assessment & Plan (08/29/2024 2:21 PM EST): PLAN: Consult psychology, appreciate recs Assessment & Plan (08/24/2024 11:29 AM EST): PLAN: Consult psychology, appreciate recs Assessment & Plan (08/23/2024 7:39 AM EST): PLAN: Consult psychology, appreciate recs Assessment & Plan (08/22/2024 8:48 AM EST): PLAN: Consult psychology, appreciate recs Assessment & Plan (08/21/2024 2:49 PM EST): PLAN: Consult psychology, appreciate recs Resolved Problems ProblemNoted DateDiagnosed DateResolved DateAbdominal fluid xnfeiecegw92/26/2025 08/07/2024 Encounters DateTypeDepartmentCare AjxxUadkkjgzmxh30/24/2025 [facility] [address] [place] [address] Bubba Johnson PSYD Major depressive disorder, recurrent episode, moderate with anxious distress (HCC) (Primary Dx); Psychological factor affecting physical condition; Crohn's disease with complication, unspecified gastrointestinal tract location (HCC); Other xzocvsm9805/28/20253656Ztncqk99/21/2025 Patient [facility] G[facility]ology [address] [address] Grace Monterroso RPh Checking In05/24/2025Orders Only Gastroenterology [address] [address] Abebe Baca MD, PhD Bloating (Primary Dx)05/23/2025 3:00 PM ESTOffice Visit Colorectal Surgery [address] [address] Elsy Rousseau, Crohn's disease of both small and large intestine with other complication (HCC); Abdominal bloating; Encounter for adjustment and management of vascular access device; Short bowel syndrome with colon in oyqaokpsvx08/19/2025Telephone Gastroenterology [address] [address] Pattern Grader, Hpn Qwclqhx4105/23/2025 Patient [facility] G[facility]enterology [address] [address] Provider, [facility] Dr. Mike xjbqrwvdvuf18/15/2025 Patient [facility] Gastroenterology [address] [address] Provider, [facility] APPOINTMENT KXZFZIKZ12/11/2025Telephone Gastroenterology [address] [place] [address] Pattern Grader, Hpn Results (Routine labs stable-discuss weaning)05/10/2025Specialty Pharmacy [facility] [address] [place] [address] Nidia Maya RPh SPP Inflammatory Conditions - Medication Refill (Skyrizi)05/07/2025 2:30 PM [facility] Vascular Medicine [address] [place] [address] Mariam Kenny PA-C History of DVT (deep vein thrombosis) (Primary Dx); Anticoagulation management nuzgpwvcf85/03/2025[facility] [address] [address] Pattern Grader, Dilma 05/07/2025[facility] [address] [place] [address] Mariam Kenny PA-C 05/03/2025[facility] [address] [address] Pattern Grader, Dilma Patient Updyhz1105/01/2025 1:30 PM EDTOffice Visit Gastroenterology [address] [address] Berna Mike DO On total parenteral nutrition (TPN) (Primary Dx); Therapeutic drug monitoring; Encounter for nutritional counseling; 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; Crohn's disease of both small and large intestine with other complication (HCC); Central venous catheter in place, permanent; Presence of permanent central venous whyxexmk93/23/2025 [facility] [address] [address] Abebe Baca MD, PhD Bloating (Primary Dx); Straining during bowel ravbvxuvj79/23/5911Zweztv17/10/2025[facility] [address] [address] Pattern Grader, Dilma Vecqriv5704/11/2025 Patient Msg Gastroenterology [address] [address] Provider, [facility] medication follow up04/11/2025[facility] [address] [address] Pattern Grader, Hpn Patient Iurkix3904/10/2025[facility] [address] [address] Pattern Grader, Hpn Patient Update (Outpatient labs vs [facility])04/03/2025[facility] [address] [address] Berna Mike DO 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)04/02/2025Results Follow-Up Gastroenterology [address] [place] [phone] Obdulia Patrick APRN.CNP 03/30/2025 1:13 PM EDT - 03/30/2025 11:59 PM EDTHospital Encounter Radiology [address] [place] [phone] Altered bowel habits [R19.4] Discharge Disposition: Home03/30/2025 12:00 PM EDTOffice Visit Gastroenterology [address] [place] [phone] Grace Monterroso RPh Crohn's disease with complication, unspecified gastrointestinal tract location (HCC) (Primary Dx)03/29/2025 8:00 AM [facility] Colorectal Surgery [address] [place], [place] [phone] Patricia Dubose APRN.TOOL DRAWING CHECKER Aftercare following surgery (Primary Dx); Nerve root and plexus /22/2025Results Follow-Up Gastroenterology [address] [place] [phone] Obdulia Patrick APRN.CNP 03/26/2025Results Follow-Up Gastroenterology [address] [place] [address] Abebe Baca MD, PhD 03/22/2025 3:[address] [facility] Center Hematology/Oncology [address] [place] [address] [place] [address] Disorders of fluid, electrolyte, and acid-base balance; On total parenteral nutrition (TPN); Leukocytosis, unspecified type; Iron deficiency anemia, unspecified iron deficiency anemia type; Crohn's disease with complication, unspecified gastrointestinal tract location (HCC); Other gbgmrgv3703/22/2025 10:00 AM [facility] Gastroenterology [address] [place] [address] Obdulia Patrick APRN.CNP Crohn's disease with complication, unspecified gastrointestinal tract location (HCC) (Primary Dx)03/22/2025 Patient Msg Gastroenterology [address] [place] [phone] Provider, [facility] [place]: New Appointment Dfoebklmhukk68/18/2025 Patient Msg [facility] [address] [place] [address] Nidia Maya, [facility] New Medication Action Hgdzvnxl62/18/2025Tephone Gastroenterology [address] [place] [phone] Obdulia Patrick, IMAGERY ANALYST.TOOL DRAWING CHECKER Ercyjyhkigh93/16/2025Orders Only Gastroenterology [address] [place] [phone] Abebe Baca MD, PhD 03/16/2025 8:[facility] [address] [place] [phone] Patricia Dubose, IMAGERY ANALYST.TOOL DRAWING CHECKER Crohn's disease of both small and large intestine with abscess (HCC) (Primary Dx); Nausea; Nausea and vomiting, unspecified vomiting type; Gastro-esophageal reflux disease without srlsmboylon45/11/2025 2:00 PM EDT [facility] [address] [place], [place] [id number] Bubba Johnson PSYD Major depressive disorder, recurrent episode, moderate with anxious distress (HCC) (Primary Dx); Psychological factor affecting physical condition; Crohn's disease with complication, unspecified gastrointestinal tract location (HCC); Other fbhvwcy0803/15/2025Results Follow-Up Gastroenterology [address] [place] [phone] Abebe Baca MD, PhD 03/09/2025Orders Only Gastroenterology [address] [place] [phone] Grace Motnerroso [facility] 03/09/2025Tephone [phone] [place] [address] Abebe Baca MD, PhD Insurance Authorization (Additional information required [id number] ([facility]) - INJECTION, RISANKIZUMAB-RZAA, INTRAVENOUS, 1 MG//)03/08/2025 2:30 PM EDTOffice Visit Gastroenterology [address] [address] Abebe Baca MD, PhD Iron deficiency anemia, unspecified iron deficiency anemia type (Primary Dx); Crohn's disease with complication, unspecified gastrointestinal tract location (HCC); Other icvbuhi2503/08/2025 Patient Msg Gastroenterology [address] [place] [phone] Ajit Capellan, DENISE Nutrition Kjhoowsdlwwq32/04/2025Telephone Gastroenterology [address] [place] [address] Abebe Baca MD, PhD Wehjei4503/07/2025 11:[facility] Gastroenterology [address] [place] [address] KrissGrace, RPh Crohn's disease with complication, unspecified gastrointestinal tract location (HCC) (Primary Dx)03/06/2025 3:[address] [facility] Center Hematology/Oncology [address] [place] [address] [place] [address] Disorders of fluid, electrolyte, and acid-base balance; On total parenteral nutrition (TPN); Leukocytosis, unspecified type03/06/2025 1:15 PM [facility] Vascular Medicine [address] [place] [address] Mariam Kenny PA-C Anticoagulation management encounter (Primary Dx)03/06/2025[facility] [address] [place] [address] Mariam Kenny PA-C 03/06/2025Travelfrom Last 3 Months Social History Tobacco UseTypesPacks/DayYears UsedDateSmoking Tobacco: NeverPassive Smoke Exposure: CurrentSmokeless Tobacco: Never Tobacco Cessation:Counseling Given: Not Answered Passive Exposure Comments: smokes out side per pt 02/14/2025lcohol Use Standard Drinks/WeekCommentsNot Currently0 (1 standard drink = 0.6 oz pure alcohol)PHQ-2AnswerDate RecordedPHQ-2 lozab38207/28/2024Housing Stability Vital SignAnswerDate RecordedIn the last 12 months, was there a time when you were not able to pay the mortgage or rent on time?No09/03/2024Number of Times Moved in the Last YearNot on file09/03/2024t any time in the past 12 months, were you homeless or living in a fci (including now)?No09/03/2024Hunger Vital Sign AnswerDate RecordedWithin the [...] homeless or living in a fci (including now)?No02/16/2025HC UtilitiesAnswerDate RecordedIn the past 12 months has the [employer], gas, oil, or water [employer] threatened to shut off services in your home?02/16/2025rea Deprivation IndexAnswerDate Recorded National Score (1-100), lower number is lower fpdw838107/31/2024State Score (1- 10), lower number is lower ghoj92407/31/2024Data from: https://www.neighborhoodatlas.medicine.[facility].edu/. Last address used for g[address] 07/31/2024CommentsNoSex and Gender Information ValueDate RecordedSex Assigned at BirthNot on fileLegal YrnUvnxut49/18/2025 1:54 PM ESTGender IdentityNot on fileSexual OrientationNot on file Last Filed Vital Signs Vital SignReadingTime TakenCommentsBlood Ubexwujs876/6710 1:49 PM EDT Pweie0820 1:49 PM VDOClibjuxtdjs88.8 ??C (98.2 ??F)05/01/2025 1:49 PM EDTRespiratory Sswd593603/02/2025 1:30 PM EDTOxygen Outzjpesmc82%05/01/2025 1:49 PM EDTInhaled Oxygen Concentration--Xqykfa50.9 kg (143 lb)05/23/2025 2:45 PM EST Mwgrsf428.9 cm (5' 6.5 )05/23/2025 2:45 PM ESTBody Mass Index22.7405/23/2025 2:45 PM EST Plan of Treatment DateTypeDepartmentCare Team (Latest Contact Info)Ufgbdsxseoq11/08/2025 1:00 PM ESTDistance Health Psychology [address] [place] [address] Bubba Johnson PSYD [address] [place] [address] follow up 7 sessions 4 [facility] 3:00 [facility] [address] [address] Berna Mike DO [address] [place], [place] [phone] virtual visit/HPN/No RD aocvsdccw90/15/2025 11:00 AM [facility] [address] [place] [address] Bubba Johnson PSYD [address] [place], [place] [phone] follow up 7 sessions 6 of 11:00 AM [facility] [address] [address] Patricia Dubose, DIONISIO.TOOL DRAWING CHECKER [address] [place], [place] [phone] follow up06/25/2025 11:00 AM [facility] [address] [place] [address] Bubba Johnson YOSHI [address] [place] [address] follow up 7 sessions 7 of 1:00 PM [facility] [address] [place] [address] Bubba JohnsonCESARKINDRA [address] [place], [place] [phone] follow up 7 sessions 5 of 11:00 AM ESTSpecialty Pharmacy [facility] [address] [place], [place] [address] [address] Pharmacist, [facility] [address] [place] [address] rufino Mensah (58D) - PAx 03/12/26- [place] 1:15 PM [facility] Vascular Medicine [address] [place] [address] Mariam Kenny PA-C [address] [place] [address] DX: DVT08/09/2025 10:30 AM ESTAppointment Gastroenterology [address] [place] [address] Abebe Baca MD, PhD [address] [place], [place] [phone] Crohn's disease with complication, unspecified gastrointestinal tract location (...Health MaintenanceDue DateLast DoneCommentsAnxiety Cwafkdtrl44/11/2006 Depression Zxjmittym28/11/2006HIV Sxwropqbd16/11/2006Hepatitis B Vaccine (1 of 3 - 19+ 3-dose series)09/12/2006Cervical Cancer Rhnrcdkee00/11/2009HPV Vaccine (1 - 3-dose SCDM series)09/12/2014DTaP,Tdap,Td Vaccine (2 - Td or Tdap)02/09/2017 02/09/2007Covid-19 Vaccine ( - season)2025Influenza Vaccine (#1) Hepatitis C BuifgglmsYarexgane50/08/2022 Goals GoalPatient Goal TypeAssociated ProblemsRecent ProgressPatient-Stated?Author Blood Pressure < 130/80 Blood Smdwqvpb341/67(05/01/2025 1:49 PM EDT)Mariam Cheney PA-C Procedures Procedure NamePriorityDate/TimeAssociated DiagnosisCommentsTPN FORMULA FLOW FGVCDBVXXKGIYhdcwmv86/19/2025 1:25 PM EST TPN FORMULA FLOW GGQTEZEPYHEYWfngkum23/11/2025 9:37 AM EST TPN FORMULA FLOW MXADAYFSQAPHWdcrhtu78/03/2025 4:07 PM EST TPN FORMULA FLOW ESYCDRDDAXPCIlilfvu03/30/2025 9:22 AM EDT TPN FORMULA FLOW YYJKBZOAWKEJHuwdlmu44/10/2025 2:13 PM EDT XR ABDOMEN 3V KUB W/RNFTKCJIMxxsfrd31/26/2025 1:51 PM EDT Altered bowel habits EXTRA ZANE-MARCIO CONTAINER NDCQFZRYPOLEedujjg64/23/2025 9:33 AM EDT Crohn's disease with complication, unspecified gastrointestinal tract location (HCC) EXTRA ECOFIX CONTAINER BPPHDFQFNZMBgwncas03/23/2025 9:33 AM EDT Crohn's disease with complication, unspecified gastrointestinal tract location (HCC) LAB EXTRA UDNTHClvgbzz97/23/2025 9:33 AM EDT Crohn's disease with complication, unspecified gastrointestinal tract location (HCC) CALPROTECTIN,SOXPYOplpyuw61/23/2025 9:33 AM EDT Crohn's disease with complication, unspecified gastrointestinal tract location (HCC) PT ED PATIENT MOKXBZCIHIS60/21/2025 TPN FORMULA FLOW PHPVVUOFLGMMXpcfljx64/19/2025 10:40 AM EDT CBC + MYQSRsuyzcr61/18/2025 2:01 PM EDT Crohn's disease with complication, unspecified gastrointestinal tract location (HCC) C-REACTIVE PROTEIN (CRP)Imwvbwl8103/22/2025 2:01 PM EDT Crohn's disease with complication, unspecified gastrointestinal tract location (HCC) TSH CFZWsuacbh17/18/2025 2:01 PM EDT Iron deficiency anemia, unspecified iron deficiency anemia type Crohn's disease with complication, unspecified gastrointestinal tract location (HCC) Other fatigue IRON + ARSOVzcmmcj44/18/2025 2:01 PM EDT Iron deficiency anemia, unspecified iron deficiency anemia type PHOSPHORUS CMLSQTHFPBvupysm19/18/2025 2:01 PM EDT Disorders of fluid, electrolyte, and acid-base balance On total parenteral nutrition (TPN) MAGNESIUM FPHIthlqjw32/18/2025 2:01 PM EDT Disorders of fluid, electrolyte, and acid-base balance On total parenteral nutrition (TPN) COMPREHENSIVE METABOLIC SDAXZMlywmvu78/18/2025 2:01 PM EDT Disorders of fluid, electrolyte, and acid-base balance On total parenteral nutrition (TPN) EXTRA ECOFIX CONTAINER WWPUSZWAYTLRmlatsh43/10/2025 10:50 AM EDT Diarrhea, unspecified type ENTERIC BACTERIAL PANEL BY MMOGwjpyhr56/10/2025 10:50 AM EDT Diarrhea, unspecified type CLOSTRIDIUM DIFFICILE TOXIN BY VYFRgcdspe77/10/2025 10:50 AM EDT Diarrhea, unspecified type TPN FORMULA FLOW AFQHSQQKRURHNeimjyv50/03/2025 9:07 AM EDT PHOSPHORUS CVLHUKMSSZifkfwt60/02/2025 4:15 PM EDT Disorders of fluid, electrolyte, and acid-base balance On total parenteral nutrition (TPN) MAGNESIUM PONOukxjfw44/02/2025 4:15 PM EDT Disorders of fluid, electrolyte, and acid-base balance On total parenteral nutrition (TPN) COMPLETE BLOOD ATGSTKftabgr47/02/2025 4:15 PM EDT Leukocytosis, unspecified type On total parenteral nutrition (TPN) COMPREHENSIVE METABOLIC XXZIVWhyhwii88/02/2025 4:15 PM EDT Disorders of fluid, electrolyte, and acid-base balance On total parenteral nutrition (TPN) from Last 3 Months Results * TPN FORMULA FLOW PRESCRIPTION (05/23/2025 1:25 PM EST) Only the most recent of7 resultswithin the time period is included. Specimen (Source)Anatomical Location / LateralityCollection Method / Volume Collection TimeReceived Time05/23/2025 1:25 PM EST Narrative OTHER LAB - 05/23/2025 1:25 PM EST PN/EN Formula Flow [facility] #: [id number] Patient Name: YESICA HUMPHREY Patient Date of : 1985 Physician: BERNA MIKE MD Clinician: Jaimie Davis Date of Prescription: 05/23/2025 ?Amino Acids Solution: 15% amino acids 15% ? Amino Acids (g): 115 ?Amino Acid %: 3.6 ?Amino Acids (KCal/Day): 329 ? Amino Acids (g/L): 35.9 ?Dextrose (g): 230 ? Dextrose (KCal/Day): 559 ?Dextrose (g/L): 72 ? Fat Emulsion Solution: Smoflipid 20% ?Fat Percentage (%): 20 ?Fat Emul. Concentrate (ml): 320 ? Fat Emulsion (KCal/Day): 457 ?Fat Emulsion (g/L): 20 ?2 in 1 days/wk: 0 ?3 in 1 days/wk: 5 ?Total KCal w/Fat/Day: 1345 ? KCal/k.5 ?Grams Protein/k.8 ?Water for Injection (ml): 1620 ? HPN Volume (ml): 3200 ? Calcium Gluconate (mEq): 10 ? Magnesium Sulfate (mEq): 20 ? Potassium Phosphate (mEq): 0 ?Sodium Phosphate (mEq): 40 ? Glyco Phosphate (mEq): 0 ?Potassium Chloride (mEq): 60 ? Potassium Acetate (mEq): 0 ? Sodium Chloride (mEq): 95 ?Sodium Acetate (mEq): 145 ? Multiple Vitamin Solution: MVI Adult ?Multiple Vitamins (ml): 10 ?Vitamin K (Days): 0 ?Vitamin K (mg): 0 ?Mult Trace Elemts Solution: Tralement ? Mult. Trace Elemts (ml): 1 ?Chromium (mcg): 0 ? Copper (mg): 0 ? Manganese (mcg): 0 ?Selenium (mcg): 0 ? Zinc (mg): 2 ? Heparin (units): 0 Insulin Regular Human (units): 0 ? H2 Antagonist: ? H2 (mg): 0 ?Octreotide (mcg): 0 ?PN Infus Days (per wk): 5: Sun, Mon, Wed, Wilma, Fri ?PN Infus Hrs (per day): 12 ?Taper Up (hrs): 1 ?Taper Down (hrs): 1 ? PN Refill: ? PN Start Date: 05/23/2025 (*) ? PN End Date: 08/21/2025 (*) ?IVF Solution: 0.45NS ? IVF Volume (ml): 1000 ? IVF Infus Days/wk: 1 ? Other Desc. 1: 0.45% Sodium Chloride ?Other Qty./Day 1: 1 ?Other Unit 1: liter ? Other Days/wk 1: prn for hydration Ethanol Lock: Yes [facility]: [facility]31[facility]24 [facility] Phone: ??[phone] Fax: ??[phone] [facility] Comments: TPN Physician Orders: ?? CMP: ?? due date: 06/04/25 None] CBC: ?? due date: 06/04/25 None] Mg: ?? due date: 06/04/25 None] PO4: ?? due date: 06/04/25 None] Manganese (Whole Blood): ?? due date: 06/18/25 None] CRP: ?? due date: 06/18/25 None] Zinc: ?? due date: 06/18/25 None] Copper: ?? due date: 06/18/25 None] Selenium: ?? due date: 06/18/25 None] TrieneTetraene Ratio: ?? due date: 07/30/25 Comments: ??Avoidance of dietary fat by mouth and IV fat emulsion for 8-12 hours before blood draw. If PN is ordered, instruct patient to infuse a 2-in-1 PN solution that does not contain lipids the 12 hours before lab is to be drawn. Physician Comments: ??Please ensure patient has 3 bags PRN IVF on hand. Please send lab requisition to patient to alert lab when labs are due. (UP), (DOWN), and (*) indicate change from last formula flow Created By: Jaimie Davis Creation Date: 05/23/2025 ??1:23PM Reported Date: 05/23/2025 ??1:25PM Authorizing ProviderResult TypeResult StatusCcf ProviderALLOGENFinal Result Performing OrganizationAddressCity/State/ZIP CodePhone Number OTHER LAB * XR ABDOMEN 3V KUB W/OBLIQUES (03/30/2025 1:51 PM EDT)Anatomical Region LateralityModalityAbdomenOtherSpecimen (Source)Anatomical Location / LateralityCollection Method / VolumeCollection TimeReceived Time03/30/2025 1:51 PM EDT Impressions 03/30/2025 3:05 PM EDT IMPRESSION: No dilated loops of bowel. No significant stool burden. Certified Retinal Angiographer: EPIFANIO ?? Transcribe Date/Time: Mar 30 2025 ??2:55P Dictated by : BRIA VANN MD This examination was interpreted and the report reviewed and electronically signed by: BRIA VANN MD on Mar 30 2025 ??3:03PM ??EST Narrative 03/30/2025 3:05 PM EDT * * *Final Report* * * DATE OF EXAM: Mar 30 2025 ??1:51PM ?? AOX ?? [id number] ??- ??XR ABDOMEN 3V KUB W/OBLIQUES ??/ PROCEDURE REASON: Altered bowel habits ? * * * * Physician Interpretation * * * * ABDOMEN PLAIN FILM, 3 VIEWS CLINICAL INFORMATION: Altered bowel habits TECHNIQUE: AP and Bilateral oblique views of the abdomen, 3 images in total. COMPARISON: 08/18/2024 KUB; 08/17/2024 CT Enterography RESULT: * ??No dilated loops of bowel. * ??Scattered gas throughout nondilated bowel loops * ??Right lower quadrant suture line * ??There is no significant colonic stool burden. * ??There are no pathologic calcifications. * ??There are no acute osseous abnormalities. Procedure Note Provider, [facility] [place] - 03/30/2025 * * *Final Report* * * DATE OF EXAM: Mar 30 2025 1:51PM AOX [id number] - XR ABDOMEN 3V KUB W/OBLIQUES / PROCEDURE REASON: Altered bowel habits * * * * Physician Interpretation * * * * ABDOMEN PLAIN FILM, 3 VIEWS CLINICAL INFORMATION: Altered bowel habits TECHNIQUE: AP and Bilateral oblique views of the abdomen, 3 images in total. COMPARISON: 08/18/2024 KUB; 08/17/2024 CT Enterography RESULT: * No dilated loops of bowel. * Scattered gas throughout nondilated bowel loops * Right lower quadrant suture line * There is no significant colonic stool burden. * There are no pathologic calcifications. * There are no acute osseous abnormalities. IMPRESSION IMPRESSION: No dilated loops of bowel. No significant stool burden. Certified Retinal Angiographer: EPIFANIO Transcribe Date/Time: Mar 30 2025 2:55P Dictated by : BRIA VANN MD This examination was interpreted and the report reviewed and electronically signed by: BRIA VANN MD on Mar 30 2025 3:03PM EST Authorizing ProviderResult TypeResult Elvi Patrick IMAGERY ANALYST.CNPRAD-PAMA Final Result * (ABNORMAL) CALPROTECTIN,FECAL (03/27/2025 9:33 AM EDT)ComponentValueRef Range Test MethodAnalysis TimePerformed AtPathologist SignatureCALPROTECTIN, FECAL QCQTFSNAFOZT54.6(H)<50 ug/g003/27/2025 10:34 PM EDTCKING'[facility] LABCALPROTECTIN, FECAL INTERPBorderline elevated. Re-evaluation in 4-6 weeks is recommended if clinically indicated.(A)Agfnit8903/27/2025 10:34 PM EDT [facility]: Interpretation: <50.0 ug/g: Normal 50.0 ug/g - 120.0 ug/g: Borderline elevated. Re-evaluation in 4-6 weeks is recommended if clinically indicated. >120.0 ug/g: Elevated Specimen (Source)Anatomical Location / LateralityCollection Method / Volume Collection TimeReceived TimeStoolSTOOL SPECIMEN / UnknownNon Blood / Unknown 03/27/2025 9:33 AM EDT03/27/2025 12:03 PM EDT Narrative Authorizing ProviderResult TypeResult Elvi Montanaicz IMAGERY ANALYST.CNPLABORATORY Final ResultPerforming OrganizationAddressCity/State/ZIP CodePhone Number [facility] [address] [place] [address], * EXTRA ZANE-MARCIO CONTAINER PERFORMABLE (03/27/2025 9:33 AM EDT)Specimen (Source)Anatomical Location / LateralityCollection Method / VolumeCollection TimeReceived TimeStoolSTOOL SPECIMEN / Zsxrody7003/27/2025 9:33 AM EDT03/27/2025 4:05 PM EDT Narrative Authorizing ProviderResult TypeResult StatusObdulia Darnell IMAGERY ANALYST.CNPLABORATORY Final ResultPerforming OrganizationAddressCity/State/ZIP CodePhone Number [facility] [place] [address], * EXTRA ECOFIX CONTAINER PERFORMABLE (03/27/2025 9:33 AM EDT) Only the most recent of2 resultswithin the time period is included. Specimen (Source)Anatomical Location / LateralityCollection Method / Volume Collection TimeReceived TimeStoolSTOOL SPECIMEN / Wibdzzn1803/27/2025 9:33 AM EDT 03/27/2025 4:05 PM EDT Narrative Authorizing ProviderResult TypeResult StatusObdulia Patrick IMAGERY ANALYST.CNPLABORATORY Final ResultPerforming OrganizationAddressCity/State/ZIP CodePhone Number [facility] [place] [address], * PT ED PATIENT INFORMATION (03/25/2025)Specimen (Source)Anatomical Location / LateralityCollection Method / VolumeCollection TimeReceived Time03/25/2025 Narrative [facility] - 05/10/2025 Provider PROVIDER your patient YESICA HUMPHREY has not started their Edgar program, time has . Edgar program: PATIENT SAFETY INSTRUCTIONS FOR HEALTHCARE SETTINGS Authorizing ProviderResult TypeResult StatusCcf ProviderEMMIFinal Result Performing OrganizationAddressCity/State/ZIP CodePhone Number [facility] * MAGNESIUM (03/22/2025 2:01 PM EDT) Only the most recent of2 resultswithin the time period is included. ComponentValueRef RangeTest MethodAnalysis TimePerformed AtPathologist Signature Magnesium1.81.7 - 2.3 mg/dL03/22/2025 2:48 PM EDTNORTHCOAST [facility] LABSpecimen (Source)Anatomical Location / LateralityCollection Method / VolumeCollection TimeReceived TimeBloodBLOOD SPECIMEN / UnknownCentral Line / Ovzzhkx7603/22/2025 2:01 PM EDT03/22/2025 2:07 PM EDT Narrative Authorizing ProviderResult TypeResult StatusKzeny Rashid DOLABORATORYFinal Result Performing OrganizationAddressCity/State/ZIP CodePhone Number [facility] [address] [place] [address] * THYROID STIMULATING HORMONE (03/22/2025 2:01 PM EDT)ComponentValueRef Range Test MethodAnalysis TimePerformed AtPathologist SignatureTSH1.4900.270 - 4.200 mIU/L03/23/2025 3:48 PM EDTCKING'S DAUGH[facility] LABComment: If the patient is , TSH reference range varies by gestational period: First Trimester (weeks 9-12): 0.180-2.990 mIU/L Second Trimester: 0.110-3.980 mIU/L Third Trimester: 0.480-4.710 mIU/L Ceferino Nova et al. A Practical Approach for the Verifications and Determination of Site- and Trimester-Specific Reference Intervals for Thyroid Function tests in . Thyroid, 2019:29:3:412-420.Wilver E, et al. 2017 Guidelines of the [place] Thyroid Association for the Diagnosis and Management of Thyroid Disease during and the . Thyroid, 2017:27:3:315-389. Specimen (Source)Anatomical Location / LateralityCollection Method / Volume Collection TimeReceived TimeBloodBLOOD SPECIMEN / UnknownCentral Line / Unknown 03/22/2025 2:01 PM EDT03/22/2025 2:07 PM EDT Narrative Authorizing ProviderResult TypeResult StatusAbebe Castaneda MD, PhDLABORATORY Final ResultPerforming OrganizationAddressCity/State/ZIP CodePhone Number [facility] [address] [facility] [address] [address], * PHOSPHORUS INORGANIC (03/22/2025 2:01 PM EDT) Only the most recent of2 resultswithin the time period is included. ComponentValueRef RangeTest MethodAnalysis TimePerformed AtPathologist Signature Phosphorus3.82.7 - 4.8 mg/dL03/22/2025 2:48 PM EDTNORTHCOAST [facility]LY [facility] LABSpecimen (Source)Anatomical Location / LateralityCollection Method / VolumeCollection TimeReceived TimeBloodBLOOD SPECIMEN / UnknownCentral Line / Wxiwbzt0803/22/2025 2:01 PM EDT03/22/2025 2:07 PM EDT Narrative Authorizing ProviderResult TypeResult StatusKkelliSt. Luke's Hospital DOLABORATORYFinal Result Performing OrganizationAddressCity/State/ZIP CodePhone Number [facility] [address] [place] [address] * (ABNORMAL) IRON AND TIBC (03/22/2025 2:01 PM EDT)ComponentValueRef RangeTest MethodAnalysis TimePerformed AtPathologist OscmsxyejUlvc1024 - 186 ug/dL 03/23/2025 3:26 PM EDTCLEVEL[facility] ZPMYGNK849(H)232 - 386 ug/dL03/23/2025 3:26 PM EDTCKING'S [facility] LABTransferrin Azavdsruyq82.7(L)15.0 - 57.0 %03/23/2025 3:26 PM EDTCKING'S [facility] LABSpecimen (Source)Anatomical Location / LateralityCollection Method / VolumeCollection TimeReceived TimeBloodBLOOD SPECIMEN / UnknownCentral Line / Tacxeqm2703/22/2025 2:01 PM EDT03/22/2025 2:07 PM EDT Narrative Authorizing ProviderResult TypeResult StatusAbebe Castaneda MD, PhDLABORATORY Final ResultPerforming OrganizationAddressCity/State/ZIP CodePhone Number [facility] [address] [address], * (ABNORMAL) COMPREHENSIVE METABOLIC PANEL (03/22/2025 2:01 PM EDT) Only the most recent of2 resultswithin the time period is included. ComponentValueRef RangeTest MethodAnalysis TimePerformed AtPathologist Signature Protein, Total7.16.3 - 8.0 g/dL03/22/2025 2:49 PM EDTSISTERSVILLE [facility]AL [facility] LABAlbumin4.23.9 - 4.9 g/dL03/22/2025 2:49 PM [facility] LABCalcium, Total9.38.5 - 10.2 mg/dL03/22/2025 2:49 PM EDT [facility] LABBilirubin, Total0.40.2 - 1.3 mg/dL 03/22/2025 2:49 PM EDTH[facility] LABAlkaline Phosphatase 8834 - 123 U/L03/22/2025 2:49 PM [facility]TH[facility] ZGNLDF8832 - 35 U/L03/22/2025 2:49 PM [facility] EAFUPL388 - 38 U/L03/22/2025 2:49 PM [facility] NCAIwrobdf042(H)74 - 99 mg/dL03/22/2025 2:49 PM [facility] LABComment: The [place] Diabetes Association (ADA) provides guidance for cutoff [...] Standards of Medical Care in Diabetes 2016, [place] Diabetes Association. Diabetes Care. 2016.39(Suppl 1). XJR490 - 21 mg/dL03/22/2025 2:49 PM [facility] Creatinine0.640.58 - 0.96 mg/dL03/22/2025 2:49 PM [facility] DOLFdycwc285873 - 144 mmol/L03/22/2025 2:49 PM EDTNORTHENRY [facility] LABPotassium4.03.7 - 5.1 mmol/L03/22/2025 2:49 PM EDTNORTHENRY [facility] WYCRtnmmjkg8709 - 107 mmol/L03/22/2025 2:49 PM EDT [facility] MZBHD05133 - 30 mmol/L03/22/2025 2:49 PM EDT [facility] LABAnion Ixu184 - 15 mmol/L03/22/2025 2:49 PM EDTNORTHENRY [facility]D [facility] LABEstimated Glomerular Filtration Cjxs560 >=60 mL/min/1.73m 03/22/2025 2:49 PM EDTSISTERSVILLE GENERAL [facility] LABComment:Estimated Glomerular Filtration Rate (eGFR) is calculated using the 2020 CKD-EPI creatinine equation. This equation utilizes serum creatinine, sex, and age as parameters. The creatinine assay has traceable calibration to isotope dilution- mass spectrometry. Refer to KDIGO guidelines for clinical interpretation. In patients with unstable renal function, e.g. those with acute kidney injury, the eGFRmay not accurately reflect actual GFR.Specimen (Source)Anatomical Location / LateralityCollection Method / VolumeCollection TimeReceived TimeBloodBLOOD SPECIMEN / UnknownCentral Line / Pzoxujl4403/22/2025 2:01 PM EDT03/22/2025 2:07 PM EDT Narrative Authorizing ProviderResult TypeResult StatusKunzaAscension Macomb-Oak[facility] Hospitaled DOLABORATORYFinal Result Performing OrganizationAddressCity/State/ZIP CodePhone Number [facility] [address] [place] [address] * (ABNORMAL) COMPLETE BLOOD COUNT AND DIFFERENTIAL (03/22/2025 2:01 PM EDT) ComponentValueRef RangeTest MethodAnalysis TimePerformed AtPathologist SignatureWBC6.093.70 - 11.00 k/uL03/22/2025 2:10 PM EDTNORTHENRY FORD J[facility] LABRBC3.89(L)3.90 - 5.20 m/uL03/22/2025 2:10 PM EDTNORTHENRY [facility] IEMEllteznwwi02.3(L)11.5 - 15.5 g/dL03/22/2025 2:10 PM EDTNOPOCAHONTAS [facility] TIEUlirmkzgiy14.1(L)36.0 - 46.0 % 03/22/2025 2:10 PM EDTNOPOCAHONTAS [facility]OR[facility] WHIEKA51.780.0 - 100.0 fL03/22/2025 2:10 PM EDTNORTHENRY [facility] EGAWMB35.026.0 - 34.0 pg03/22/2025 2:10 PM EDTNOPOCAHONTAS [facility] CLKMQBY74.130.5 - 36.0 g/dL03/22/2025 2:10 PM EDTNOPOCAHONTAS MEMORIAL [facility] LABRDW-CV 13.011.5 - 15.0 %03/22/2025 2:10 PM EDTSISTERSV[facility] LAB Platelet Ukozi240957 - 400 k/uL03/22/2025 2:10 PM [facility]TH[facility] DWISVD64.29.0 - 12.7 fL03/22/2025 2:10 PM EDTSISTERSVILLE [facility] LABNeutrophils %69.7%03/22/2025 2:10 PM EDTHOM[facility] LABAbs Neut4.251.45 - 7.50 k/uL03/22/2025 2:10 PM EDTNOPOCAHONTAS MEMORIAL [facility] LABLymphocytes %21.7%03/22/2025 2:10 PM EDTSISTERSV[facility] LABAbs Lymph1.321.00 - 4.00 k/uL03/22/2025 2:10 PM EDT [facility] LABMonocytes %4.9%03/22/2025 2:10 PM EDT [facility] LABAbs Mono0.30<0.87 k/uL03/22/2025 2:10 PM EDTNOPOCAHONTAS MEMOR[facility] LABEosinophils %3.0%03/22/2025 2:10 PM EDTNORTHENRY [facility] LABAbs Eosin0.18<0.46 k/uL03/22/2025 2:10 PM EDTNOPOCAHONTAS MEMORIAL [facility] LABBasophils %0.5%03/22/2025 2:10 PM EDTNOPOCAHONTAS MEMORIAL [facility] LABAbs Baso0.03<0.11 k/uL03/22/2025 2:10 PM EDTNORTHENRY [facility] LABImmature Granulocytes %0.2% 03/22/2025 2:10 PM EDTSISTERSVILLE [facility] LABAbs Immature Gran <0.03<0.10 k/03/22/2025 2:10 PM [facility] LABNRBC 0.0/100 WBC03/22/2025 2:10 PM EDT[facility]ST[facility] LABAbsolute nRBC<0.01<0.01 k/03/22/2025 2:10 PM [facility] Diff OtpwCdcp39/18/2025 2:10 PM [facility] Specimen (Source)Anatomical Location / LateralityCollection Method / Volume Collection TimeReceived TimeBloodBLOOD SPECIMEN / UnknownCentral Line / Rdluknq3403/22/2025 2:01 PM EDT03/22/2025 2:07 PM EDT Narrative Authorizing ProviderResult TypeResult StatusObdulia Patrick IMAGERY ANALYST.CNPLABORATORY Final ResultPerforming OrganizationAddressCity/State/ZIP CodePhone Number [facility] [address] [place] [address] * C-REACTIVE PROTEIN (03/22/2025 2:01 PM EDT)ComponentValueRef RangeTest Method Analysis TimePerformed AtPathologist SignatureCRP0.4<0.9 mg/dL03/23/2025 3:45 PM EDTC[facility] LABSpecimen (Source)Anatomical Location / LateralityCollection Method / VolumeCollection TimeReceived TimeBloodBLOOD SPECIMEN / UnknownCentral Line / Zsyxaum9403/22/2025 2:01 PM EDT03/22/2025 2:07 PM EDT Narrative Authorizing ProviderResult TypeResult StatusObdulia Patrick APRN.CNPLABORATORY Final ResultPerforming OrganizationAddressCity/State/ZIP CodePhone Number [facility] [address] [place] [address], * CLOSTRIDIUM DIFFICILE TOXIN BY PCR (03/14/2025 10:50 AM EDT)ComponentValueRef RangeTest MethodAnalysis TimePerformed AtPathologist SignatureC. difficile PCR Negative for C. difficile toxin by PCRNegative for C. difficile toxin by PCR CEPHEID GENEXPERT COVID19 03/14/2025 6:51 PM EDTCKING'[facility] LABSpecimen (Source) Anatomical Location / LateralityCollection Method / VolumeCollection Time Received TimeStoolSTOOL SPECIMEN / UnknownNon Blood / Wdzcvfx3603/14/2025 10:50 AM EDT03/14/2025 11:52 AM EDT Narrative Authorizing ProviderResult TypeResult StatusAbebe Castaneda MD, PhDLABORATORY Final ResultPerforming OrganizationAddressCity/State/ZIP CodePhone Number [facility] [address] [place] [address], * ENTERIC BACTERIAL PANEL BY PCR (03/14/2025 10:50 AM EDT)ComponentValueRef RangeTest MethodAnalysis TimePerformed AtPathologist SignatureCampylobacter species (C. jejuni/C. coli) DNANot detectedNot Zcmvmyeh08/11/2025 3:53 AM EDT [facility] LABSalmonella species DNANot detectedNot Detected 03/15/2025 3:53 AM EDTCKING[facility] LABShiga-like toxin producing E. coli (STEC) DNANot detectedNot Xncxqehq11/11/2025 3:53 AM EDT [facility] LABShigella/Enteroinvasive E. coli (EIEC) DNANot detectedNot Lvuuctha06/11/2025 3:53 AM EDTCKING[facility] LAB Specimen (Source)Anatomical Location / LateralityCollection Method / Volume Collection TimeReceived TimeStoolSTOOL SPECIMEN / UnknownNon Blood / Unknown 03/14/2025 10:50 AM EDT03/14/2025 11:52 AM EDT Narrative Authorizing ProviderResult TypeResult StatusAbebe Castaneda MD, PhDLABORATORY Final ResultPerforming OrganizationAddressCity/State/ZIP CodePhone Number [facility] [address] [facility] [address] [place] [address], * (ABNORMAL) COMPLETE BLOOD COUNT (03/06/2025 4:15 PM EDT)ComponentValueRef RangeTest MethodAnalysis TimePerformed AtPathologist SignatureWBC6.323.70 - 11.00 k/uL03/07/2025 7:45 AM [facility] LABRBC3.52 (L)3.90 - 5.20 m/uL03/07/2025 7:45 AM [facility] Enoanumlpg41.4(L)11.5 - 15.5 g/dL03/07/2025 7:45 AM [facility] QIMKqlzabouzk39.3(L)36.0 - 46.0 %03/07/2025 7:45 AM EDT [facility] FDWQOZ65.980.0 - 100.0 fL03/07/2025 7:45 AM [facility] ZYMCTD94.526.0 - 34.0 pg03/07/2025 7:45 AM [facility] BLKVTZS60.230.5 - 36.0 g/dL03/07/2025 7:45 AM [facility] LABRDW-CV12.311.5 - 15.0 % 03/07/2025 7:45 AM [facility] LABPlatelet Ivejo945 150 - 400 k/uL03/07/2025 7:45 AM [facility] LABMPV 11.19.0 - 12.7 fL03/07/2025 7:45 AM EDTSISTERSV[facility] LAB Absolute nRBC<0.01<0.01 k/uL03/07/2025 7:45 AM EDTNORTHEN[facility] LABSpecimen (Source)Anatomical Location / LateralityCollection Method / VolumeCollection TimeReceived TimeBloodBLOOD SPECIMEN / UnknownPort - Continuous Access Dev. / Otmsqhs7603/06/2025 4:15 PM EDT03/06/2025 4:17 PM EDT Narrative Authorizing ProviderResult TypeResult StatusKunbenigno Mike DOLABORATORYFinal Result Performing OrganizationAddressCity/State/ZIP CodePhone Number [facility] [address] [place] [address] from Last 3 Months Insurance Advance Directives * Full Code (Latest Code Status on File) Date ActivatedDate InactivatedComments09/02/2024 3:27 AM09/06/2024 5:41 PMQuestion AnswerCommentsFull Code Order Discussed With:* Patient * Full Code Date ActivatedDate InactivatedComments08/17/2024 9:03 AM08/30/2024 7:00 PMQuestion AnswerCommentsFull Code Order Discussed With:* Patient Care Teams Team MemberRelationshipSpecialtyStart DateEnd Date Berna Mike DO [address] [place] [address] Home Parenteral Nutrition ProviderGastroenterology08/08/24 Community Resourse [facility] Resource02/16/25
--- OUTSIDE RECORDS SUMMARY | 2025-06-04 14:25 | XMS_ITS | Encounter Summary ---
Author Organization [facility] Address [address] [place] [address] Care Team Providers Care Broker In Charge Name Role Phone Berna Mike DO Unavailable Source Comments In the event this information is protected by the Federal Confidentiality of Alcohol and Drug AbusePatient Records regulations: The Federal rules restrict any use of the information to criminally investigate or prosecute any alcohol or drug abuse patient.[facility] Encounter Details DateTypeDepartmentCare Team (Latest Contact Info)Ebegsxhmtkq79/03/2025[facility] [address] [place] [address] Sandra Argueta margarita Social History Tobacco UseTypesPacks/DayYears UsedDateSmoking Tobacco: NeverPassive Smoke Exposure: NeverSmokeless Tobacco: NeverAlcohol UseStandard Drinks/WeekComments Not Currently0 (1 standard drink = 0.6 oz pure alcohol)PHQ-2AnswerDate Recorded PHQ-2 nzsps576Housing Stability Vital SignAnswerDate RecordedIn the last 12 months, was there a time when you were not able to pay the mortgage or rent on time?No03/02/2025Number of Times Moved in the Last YearNot on file09/03/2024 At any time in the past 12 months, were you homeless or living in a snf (including now)?No09/03/2024Hunger Vital SignAnswerDate RecordedWithin the past [...] you from medical appointments or from getting medications?No 02/16/2025In the past 12 months, has lack of transportation kept you from meetings, work, or from getting things needed for daily living?No02/16/2025 Housing Stability Vital SignAnswerDate RecordedIn the last 12 months, was there a time when you were not able to pay the mortgage or rent on time?No02/16/2025 Number of Times Moved in the Last YearNot on file02/16/2025t any time in the past 12 months, were you homeless or living in a snf (including now)?No 02/16/2025HC UtilitiesAnswerDate RecordedIn the past 12 months has the electric, gas, oil, or water company threatened to shut off services in your home?No02/16/2025rea Deprivation IndexAnswerDate RecordedNational Score (1- 100), lower number is lower bqfs648407/31/2024State Score (1-10), lower number is lower zxrj67807/31/2024Data from: https://www.neighborhoodatlas.medicine.[facility].edu/. Last address used for N[place] 07/31/2024CommentsNoSex and Gender Information ValueDate RecordedSex Assigned at BirthNot on fileLegal WpdFoolgl66/18/2025 1:54 PM ESTGender IdentityNot on fileSexual OrientationNot on filedocumented as of this encounter Functional Status * Are you deaf or do you have serious difficulty hearing?AnswerDate of AgejxxezmdAjocdeRv99/26/2025 2:38 PM Hanane Benitez RN * Are you blind or do you have serious difficulty seeing, even when wearing glasses?AnswerDate of WjbvxgbfuhJibvpxQf68/26/2025 2:38 PM Hanane Benitez RN * Do you have serious difficulty walking or climbing stairs?AnswerDate of CdtjgpyzrvSirdfcOo21/26/2025 2:38 PM Hanane Benitez RN * Do you have difficulty dressing or bathing?AnswerDate of AssessmentAuthorNo 08/30/2024 2:38 PM Hanane Benitez RN * Because of a physical, mental, or emotional condition, do you have difficulty doing errands alone such as visiting a doctor's office or shopping?AnswerDate of TusbblgysgIlabhvFl81/26/2025 2:38 PM Hanane Benitez RN documented as of this encounter Mental Status * Because of a physical, mental, or emotional condition, do you have serious difficulty concentrating, remembering, or making decisions?AnswerEntry Date DcahagEe99/26/2025 2:38 PM Hanane Benitez RN documented in this encounter Plan of Treatment DateTypeDepartmentCare Team (Latest Contact Info)Ujtpstecbnj95/08/2025 1:00 PM [facility] [address] [place] [address] Bubba Johnson PSYD [address] [place] [address] follow up 7 sessions 4 of 3:[address] [facility] Gastroenterology [address] [address] Berna Mike DO [address] [place] [address] virtual visit/HPN/No RD zedgryjrv67/15/2025 11:00 AM [facility] [address] [place] [address] Bubba Johnson PSYD [address] [place] [address] follow up 7 sessions 6 of 11:00 AM [facility] [address] [address] Patricia Dubose APRN.AUDIOMETRIC TECHNICIAN [address] [facility] [place] [address] follow up06/25/2025 11:00 AM [facility] [address] [place] [address] Bubba Johnson PSYD [address] [place] [address] follow up 7 sessions 7 of 1:00 PM [facility] [address] [place] [address] Bubba Johnson PSYD [address] [place] [address] follow up 7 sessions 5 of 11:00 AM ESTSpecialty Pharmacy [facility] [address] [place] [address] Pharmacist, [facility] [address] [place] [address] rufino Mensah (58D) - Rita 03/12/26- [place] 1:[address] [facility] Vascular Medicine [address] [place] [address] Mariam Kenny PA-C [address] [place] [address] DX: DVT08/09/2025 10:30 AM ESTAppointment Gastroenterology [address] [place] [phone] Abebe Baca MD, PhD [address] [place] [address] Crohn's disease with complication, unspecified gastrointestinal tract location (...documented as of this encounter Goals GoalPatient Goal TypeAssociated ProblemsRecent ProgressPatient-Stated?Author Blood Pressure < 130/80 Blood Ztmgmsgl245/67(05/01/2025 1:49 PM EDT)Mariam Cheney PA-Cdocumented as of this encounter Visit Diagnoses Not on filedocumented in this encounter Care Teams Team MemberRelationshipSpecialtyStart DateEnd Date Berna Mike DO [address] [place] [address] Home Parenteral Nutrition ProviderGastroenterology08/08/24 Community Resourse Community Resource02/16/25documented as of this encounter
--- OUTSIDE RECORDS SUMMARY | 2025-06-04 14:25 | XMS_ITS | Encounter Summary ---
Author Organization [facility] Address [address] [place] [address] Care Team Providers Care Stock Driver Name Role Phone Berna Mike DO Unavailable Source Comments In the event this information is protected by the Federal Confidentiality of Alcohol and Drug AbusePatient Records regulations: The Federal rules restrict any use of the information to criminally investigate or prosecute any alcohol or drug abuse patient.[facility] Encounter Details DateTypeDepartmentCare Team (Latest Contact Info)Epvrewcfpzl32/29/2025Results Follow-Up Gastroenterology [address] [place] [address] Obdulia Patrick APRN.GENERATION TECHNOLOGIST [address] [place] [id number] Social History Tobacco UseTypesPacks/DayYears UsedDateSmoking Tobacco: NeverPassive Smoke Exposure: CurrentSmokeless Tobacco: Never Passive Exposure Comments:Mitchell pyle smokes out side per pt 02/14/2025 Alcohol UseStandard Drinks/WeekCommentsNot Currently0 (1 standard drink = 0.6 oz pure alcohol)PHQ-2AnswerDate RecordedPHQ-2 fpfjr64407/28/2024Housing Stability Vital SignAnswerDate RecordedIn the last 12 months, was there a time when you were not able to pay the mortgage or rent on time?No09/03/2024Number of Times Moved in the Last YearNot on file09/03/2024t any time in the past 12 months, were you homeless or living in a detention (including now)?No09/03/2024Hunger Vital SignAnswerDate RecordedWithin the past [...] were you homeless or living in a detention (including now)?02/16/2025HC UtilitiesAnswerDate Recorded In the past 12 months has the [employer], gas, oil, or water [employer] threatened to shut off services in your home?02/16/2025rea Deprivation IndexAnswerDate RecordedNational Score (1-100), lower number is lower vgos075607/31/2024State Score (1-10), lower number is lower wdks26907/31/2024Data from: https://www.neighborhoodatlas.medicine.[facility].edu/. Last address used for spluimfdwjh[address] [place] 07/31/2024CommentsNoSex and Gender Information ValueDate RecordedSex Assigned at BirthNot on fileLegal YsrVfhkwf08/18/2025 1:54 PM ESTGender IdentityNot on fileSexual OrientationNot on filedocumented as of this encounter Functional Status * Are you deaf or do you have serious difficulty hearing?AnswerDate of HdcnwlzjzdFakblfUe37/26/2025 2:38 PM Hanane Benitez RN * Are you blind or do you have serious difficulty seeing, even when wearing glasses?AnswerDate of WntcdyozjoYahpflXg72/26/2025 2:38 PM Hanane Benitez RN * Do you have serious difficulty walking or climbing stairs?AnswerDate of YrmqwckzxqRlgziaEr45/26/2025 2:38 PM Hanane Benitez RN * Do you have difficulty dressing or bathing?AnswerDate of AssessmentAuthorNo 08/30/2024 2:38 PM Hanane Benitez RN * Because of a physical, mental, or emotional condition, do you have difficulty doing errands alone such as visiting a doctor's office or shopping?AnswerDate of ZkmqraydvpJmujaiNj46/26/2025 2:38 PM Hanane Benitez RN documented as of this encounter Mental Status * Because of a physical, mental, or emotional condition, do you have serious difficulty concentrating, remembering, or making decisions?AnswerEntry Date YtzpjtJm94/26/2025 2:38 PM Hanane Benitez RN documented in this encounter Plan of Treatment DateTypeDepartmentCare Team (Latest Contact Info)Xessyyjvcvg53/08/2025 1:00 PM [facility] Psychology [address] [address] Bubba Johnson PSYD [address] [place] [address] follow up 7 sessions 4 of 3:00 PM [facility] Gastroenterology [address] [address] Berna Mike DO [address] [place] [address] virtual visit/HPN/No RD nmgdxeyvs22/15/2025 11:00 AM [facility] [address] [place] [address] Bubba Jonhson PSYD [address] [place] [address] follow up 7 sessions 6 of 11:00 AM [facility] [address] [address] Patricia Dubose APRN.GENERATION TECHNOLOGIST [address] [facility] [place] [address] follow up06/25/2025 11:00 AM [facility] [address] [place] [address] Bubba Johnson PSYD [address] [place] [address] follow up 7 sessions 7 of 1:00 PM [facility] [address] [place] [address] Bubba Johnson PSYD [address] [place] [address] follow up 7 sessions 5 of 11:00 AM ESTSpecialty Pharmacy [facility] [address] [place] [address] [address] Pharmacist, Specialty[facility] [address] [place] [phone] tuill Rodrick (58D) - Rita 03/12/26- [place] 1:15 PM [facility] Vascular Medicine [address] [place] [address] Mariam Kenny PA-C [address] [place] [address] DX: DVT08/09/2025 10:30 AM ESTAppointment Gastroenterology [address] [place] [address] Abebe Baca MD, PhD [address] [place] [address] Crohn's disease with complication, unspecified gastrointestinal tract location (...documented as of this encounter Goals GoalPatient Goal TypeAssociated ProblemsRecent ProgressPatient-Stated?Author Blood Pressure < 130/80 Blood Pvrufscb714/67(05/01/2025 1:49 PM EDT)Mariam Cheney PA-Cdocumented as of this encounter Visit Diagnoses Not on filedocumented in this encounter Care Teams Team MemberRelationshipSpecialtyStart DateEnd Date Berna Mike DO [address] [place] [address] Home Parenteral Nutrition ProviderGastroenterology08/08/24 Community Resourse Community Resource02/16/25documented as of this encounter
--- OUTSIDE RECORDS SUMMARY | 2025-06-04 14:25 | XMS_ITS | Encounter Summary ---
Author Organization [facility] Address [address] [place] [address] Care Team Providers Care Watch Repairer Apprentice Name Role Phone Berna Mike DO Unavailable Source Comments In the event this information is protected by the Federal Confidentiality of Alcohol and Drug AbusePatient Records regulations: The Federal rules restrict any use of the information to criminally investigate or prosecute any alcohol or drug abuse patient.[facility] Encounter Details DateTypeDepartmentCare Team (Latest Contact Info)Kjvofpxmmdt02/24/2025Travel Social History Tobacco UseTypesPacks/DayYears UsedDateSmoking Tobacco: NeverPassive Smoke Exposure: CurrentSmokeless Tobacco: Never Passive Exposure Comments:Mitchell pyle smokes out side per pt 02/14/2025 Alcohol UseStandard Drinks/WeekCommentsNot Currently0 (1 standard drink = 0.6 oz pure alcohol)PHQ-2AnswerDate RecordedPHQ-2 lmirq69907/28/2024Housing Stability Vital SignAnswerDate RecordedIn the last 12 months, was there a time when you were not able to pay the mortgage or rent on time?No09/03/2024Number of Times Moved in the Last YearNot on file09/03/2024t any time in the past 12 months, were you homeless or living in a long term (including now)?No09/03/2024Hunger Vital SignAnswerDate RecordedWithin the past [...] were you homeless or living in a long term (including now)?No02/16/2025HC UtilitiesAnswerDate Recorded In the past 12 months has the electric, gas, oil, or water [employer] threatened to shut off services in your home?02/16/2025rea Deprivation IndexAnswerDate RecordedNational Score (1-100), lower number is lower cpfd835507/31/2024State Score (1-10), lower number is lower meif22407/31/2024Data from: https://www.neighborhoodatlas.medicine.[facility].edu/. Last address used for sblcqjcshoo[address] [place] 07/31/2024CommentsNoSex and Gender Information ValueDate RecordedSex Assigned at BirthNot on fileLegal YdlSvbakn03/18/2025 1:54 PM ESTGender IdentityNot on fileSexual OrientationNot on filedocumented as of this encounter Functional Status * Are you deaf or do you have serious difficulty hearing?AnswerDate of IfjtetusytXhgszvCh23/26/2025 2:38 PM Hanane Benitez, WAQAS * Are you blind or do you have serious difficulty seeing, even when wearing glasses?AnswerDate of MieifnkyegZnlulxAb91/26/2025 2:38 PM Hanane Benitez RN * Do you have serious difficulty walking or climbing stairs?AnswerDate of XswgnncdipJflzxuLp21/26/2025 2:38 PM Hanane Benitez RN * Do you have difficulty dressing or bathing?AnswerDate of AssessmentAuthorNo 08/30/2024 2:38 PM Hanane Benitez RN * Because of a physical, mental, or emotional condition, do you have difficulty doing errands alone such as visiting a doctor's office or shopping?AnswerDate of MycdwijubvXvkdczJp99/26/2025 2:38 PM Hanane Benitez RN documented as of this encounter Mental Status * Because of a physical, mental, or emotional condition, do you have serious difficulty concentrating, remembering, or making decisions?AnswerEntry Date FdnlinWi92/26/2025 2:38 PM Hanane Benitez RN documented in this encounter Plan of Treatment DateTypeDepartmentCare Team (Latest Contact Info)Fwxuihmltnj52/08/2025 1:00 PM [facility] [address] [place] [address] Bubba Johnson PSYD [address] [place] [address] follow up 7 sessions 4 of 3:00 PM [facility] [address] [address] Berna Mike DO [address] [place] [address] virtual visit/HPN/No RD edjouvhek17/15/2025 11:00 AM [facility] [address] [place] [phone] Bubba Johnson PSYD [address] [place] [address] follow up 7 sessions 6 of 11:00 AM [facility] [address] [address] Patricia Dubose APRN.SIGNAL INTELLIGENCE/ELECTRONIC WARFARE [address] [place] [address] follow up06/25/2025 11:00 AM [facility] [address] [place] [address] Bubba Johnson PSYD [address] [place] [address] follow up 7 sessions 7 of 1:00 PM [facility]DistanMem[facility] [address] [address] Bubba Johnson PSYD [address] [place] [address] follow up 7 sessions 5 of 11:00 AM ESTSpecialty Pharmacy [facility] [address] [place] [address] Pharmacist, Specialty[facility] [address] [place] [address] rufino Mensah (58D) - Rita 03/12/26- [place] 1:15 PM [facility] Vascular Medicine [address] [place] [address] Mariam Kenny PA-C [address] [place] [address] DX: 08/09/2025 10:30 AM ESTAppointment Gastroenterology [address] [place] [phone] Abebe Baca MD, PhD [address] [place], [place] [phone] Crohn's disease with complication, unspecified gastrointestinal tract location (...documented as of this encounter Goals GoalPatient Goal TypeAssociated ProblemsRecent ProgressPatient-Stated?Author Blood Pressure < 130/80 Blood Prpzdxwn177/67(05/01/2025 1:49 PM EDT)Mariam Cheney PA-Cdocumented as of this encounter Visit Diagnoses Not on filedocumented in this encounter Care Teams Team MemberRelationshipSpecialtyStart DateEnd Date Berna Mike DO [address] [place] [address] Home Parenteral Nutrition ProviderGastroenterology08/08/24 Community Resourse Community Resource02/16/25documented as of this encounter
--- OUTSIDE RECORDS SUMMARY | 2025-06-04 14:25 | XMS_ITS | Encounter Summary ---
Author Organization [facility] Address [address] [place] [address] Care Team Providers Care Set Up Mold Technician Name Role Phone Berna Mike DO Unavailable Source Comments In the event this information is protected by the Federal Confidentiality of Alcohol and Drug AbusePatient Records regulations: The Federal rules restrict any use of the information to criminally investigate or prosecute any alcohol or drug abuse patient.[facility] Encounter Details DateTypeDepartmentCare Team (Latest Contact Info)Nhyhurxgobl32/21/2025 Patient Msg Gastroenterology [address] [phone] KrissGrace higgins, [facility] [address] [phone] Checking In Social History Tobacco UseTypesPacks/DayYears UsedDateSmoking Tobacco: NeverPassive Smoke Exposure: CurrentSmokeless Tobacco: Never Passive Exposure Comments:Mitchell pyle smokes out side per pt 02/14/2025 Alcohol UseStandard Drinks/WeekCommentsNot Currently0 (1 standard drink = 0.6 oz pure alcohol)PHQ-2AnswerDate RecordedPHQ-2 drmir79007/28/2024Housing Stability Vital SignAnswerDate RecordedIn the last 12 [...] In the past 12 months has the [employer], gas, oil, or water [facility] threatened to shut off services in your home?02/16/2025rea Deprivation IndexAnswerDate RecordedNational Score (1-100), lower number is lower hchz391407/31/2024State Score (1-10), lower number is lower pdff10407/31/2024Data from: https://www.neighborhoodatlas.medicine.[facility].edu/. Last address used for cfjv[address] 07/31/2024CommentsNoSex and Gender Information ValueDate RecordedSex Assigned at BirthNot on fileLegal HfgMjscjh81/18/2025 1:54 PM ESTGender IdentityNot on fileSexual OrientationNot on filedocumented as of this encounter Functional Status * Are you deaf or do you have serious difficulty hearing?AnswerDate of YrjflsjwybCmvlgbFn96/26/2025 2:38 PM Hanane Benitez RN * Are you blind or do you have serious difficulty seeing, even when wearing glasses?AnswerDate of ZgbnteqbtvQoxkuuRs40/26/2025 2:38 PM Hanane Benitez RN * Do you have serious difficulty walking or climbing stairs?AnswerDate of IpzbgllanoMswwtyPr72/26/2025 2:38 PM Hanane Benitez RN * Do you have difficulty dressing or bathing?AnswerDate of AssessmentAuthorNo 08/30/2024 2:38 PM Hanane Benitez RN * Because of a physical, mental, or emotional condition, do you have difficulty doing errands alone such as visiting a doctor's office or shopping?AnswerDate of QdgtuzaagbPauwqnHj91/26/2025 2:38 PM Hanane Benitez RN documented as of this encounter Mental Status * Because of a physical, mental, or emotional condition, do you have serious difficulty concentrating, remembering, or making decisions?AnswerEntry Date UyroleDb63/26/2025 2:38 PM Hanane Benitez RN documented in this encounter Plan of Treatment DateTypeDepartmentCare Team (Latest Contact Info)Bewyreafewx98/08/2025 1:[address] [facility] Psychology [address] [address] Bubba Johnson PSYD [address] [place] [address] follow up 7 sessions 4 of 3:[address] [facility] Gastroenterology [address] [address] Berna Mike DO [address] [place] [address] virtual visit/HPN/No RD vvmyefstw47/15/2025 11:00 AM [facility] [address] [place] [address] Bubba Johnson PSYD [address] [place] [address] follow up 7 sessions 6 of 11:[address] [facility] [address] [address] Patricia Dubose APRN.SHEET FOLDER [address] [place] [facility] [place] [address] follow up06/25/2025 11:00 AM [facility] [address] [place] [address] Bubba Johnson PSYD [address] [place] [address] follow up 7 sessions 7 of 1:00 PM [facility] [address] [address] Bubba Johnson PSYD [address] [place] [address] follow up 7 sessions 5 of 11:00 AM ESTSpecialty Pharmacy [facility] [address] [place] [address]-[address] [place] [address] Pharmacist, [facility]ty[facility] [address] [place] [address] rufino Mensah (58D) - Rita 03/12/26- [place] [facility] [address] [place] [address] Mariam Kenny PA-C [address] [place] [address] DX: [id number] 10:30 AM ESTAppointment Gastroenterology [address] [place] [address] Abebe Baca MD, PhD [address] [place] [address] Crohn's disease with complication, unspecified gastrointestinal tract location (...documented as of this encounter Goals GoalPatient Goal TypeAssociated ProblemsRecent ProgressPatient-Stated?Author Blood Pressure < 130/80 Blood Ptvawnqo401/67(05/01/2025 1:49 PM EDT)Mariam Cheney PA-Cdocumented as of this encounter Visit Diagnoses Not on filedocumented in this encounter Care Teams Team MemberRelationshipSpecialtyStart DateEnd Date Berna Mike DO [address] [place] [address] Home Parenteral Nutrition ProviderGastroenterology08/08/24 Community Resourse Community Resource02/16/25documented as of this encounter
--- OUTSIDE RECORDS SUMMARY | 2025-06-04 14:25 | XMS_ITS | Clinical Summary ---
Author Organization [employer] Address [facility]-[id number] [address] [place] [address] Care Team Providers Care E Learning Developer Name Role Phone Dalia Apple MD Primary Care Provider [phone] Allergies Active AllergyReactionsCriticalityNoted DateCommentsNsaids (Non-Steroidal Anti- Inflammatory Drug)07/05/2021 crohns Medications MedicationSigDispense QuantityRefillsLast FilledStart DateEnd DateStatus citalopram (CeleXA) 20 mg tablet Take 1 tablet (20 mg total) by mouth.Active RINVOQ 30 mg ER tablet 08/16/2023ctive promethazine (PHENERGAN) 25 mg tablet Take 1 tablet (25 mg total) by mouth every 6 (six) hours as needed for nausea or vomiting.Active ondansetron (ZOFRAN) 4 mg tablet Take 1 tablet (4 mg total) by mouth every 8 (eight) hours as needed for nausea or vomiting.Active dicyclomine (BENTYL) 10 mg capsule Take 2 capsules (20 mg total) by mouth.01/28/2024ctive Active Problems No known active problems Social History Tobacco UseTypesPacks/DayYears UsedDateSmoking Tobacco: Some DaysSmokeless Tobacco: NeverAlcohol UseStandard Drinks/WeekCommentsYes0 (1 standard drink = 0.6 oz pure alcohol)Hunger ScreeningAnswerDate RecordedWithin the past 12 months we worried whether our food would run out before we got money to buy more.Never True04/22/2024Within the past 12 months the food we bought just didn't last and we didn't have money to get more.Never True04/22/2024CommentsNoSex and Gender InformationValueDate RecordedSex Assigned at BirthNot on fileLegal Sex Hifpac5407/05/2021 1:15 AM ESTGender IdentityNot on fileSexual OrientationNot on file Last Filed Vital Signs Vital SignReadingTime TakenCommentsBlood Atcusexv695/7604/22/2024 4:17 PM EDT Ygvrs27660/19/2024 4:17 PM KFVRuanrqdcatw05.1 ??C (98.8 ??F)04/22/2024 4:17 PM EDTRespiratory Lmau4744 4:17 PM EDTOxygen Ofxumnolwr63%04/22/2024 4:17 PM EDTInhaled Oxygen Concentration--Xhavlr03.4 kg (120 lb)04/22/2024 4:17 PM EDT Hekoky592.9 cm (5' 6.5 )04/22/2024 4:17 PM EDTBody Mass Index19.0804/22/2024 4:17 PM EDT Plan of Treatment Health MaintenanceDue DateLast DoneCommentsDepression Hygxijhwf03/11/2000 DTaP,Tdap and Td Vaccines (2 - Td or Tdap)Pap Smear Influenza Ehmgsvn13Adult BMI Screening Tobacco Hpnyqbodb96 Medical Devices Not on file Insurance Care Teams Team MemberRelationshipSpecialtyStart DateEnd Date Dalia Apple MD [address] [place] [address] PCP - GeneralFamily Medicine12/27/23
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
--- OUTSIDE RECORDS SUMMARY | 2025-06-04 14:25 | XMS_ITS | Clinical Summary ---
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 Name Role Phone Dalia Apple Primary Care Provider [phone] Allergies Active AllergyReactionsCriticalityNoted VfsgOrmobzxtTonfal07/03/2024 Can not have due to Crohns Milk (Cow)XautzcveEqo33/27/6591Gyypedjgw60/10/2023 Can not have due to Crohns Zazpqq9404/03/2023 Can not have due to Crohns Medications MedicationSigDispense QuantityRefillsLast FilledStart DateEnd DateStatus citalopram (CELEXA) 40 MG tablet Take 1 tablet by mouth dailyActive Cholecalciferol (VITAMIN D) 25 MCG TABS Take 1 tablet by mouth daily 60 tablet 01/29/2024ctive amitriptyline (ELAVIL) 25 MG tablet Take 1 tablet by mouth nightly 30 tablet ctive dicyclomine (BENTYL) 10 MG capsule Take 1 capsule by mouth 3 times daily 120 capsule ctive pantoprazole (PROTONIX) 40 MG tablet Take 1 tablet by mouth every morning (before breakfast) 30 tablet ctive ondansetron (ZOFRAN) 4 MG tablet Take 1 tablet by mouth every 12 hours as needed for Nausea or Vomiting 10 tablet 05/09/2024ctive promethazine (PHENERGAN) 25 MG tablet Take 1 tablet by mouth every 6 hours as neededActive ondansetron (ZOFRAN-ODT) 4 MG disintegrating tablet Take 1 tablet by mouth 3 times daily as needed for Nausea or Vomiting 21 tablet 05/24/2024ctive midodrine (PROAMATINE) 10 MG tablet Take 1 tablet by mouth 3 times daily (with meals) 90 tablet 5Active Active Problems ProblemNoted DateDiagnosed DateCRP bqaigoej08/25/2025bdominal pain, epigastric 07/23/2024Nausea and afbfvpma24/16/2025rohn's colitis, unspecified complication 07/19/2024Normocytic normochromic kcisom3605/08/20242751Maauwwyq05/02/2024elvic abscess in neossr7405/05/2024bscess of intestine due to Crohn's lhpjsjm9305/05/2024 Generalized abdominal pain05/02/2024rohn's disease of colon with abscess 05/02/2024Intra-abdominal xrdikqw7805/01/2024rohn's disease of colon with rectal znngiprm36/25/2024rohn's colitis, other xjssuwcqezad36/24/0616Kanltvz60/24/2024 Partial small bowel megxwqvjpph80/24/2024bdominal pain despite therapy for Crohn's nfyufga9601/25/2024rohn's disease with mwwhbutabfmx61/10/2023epression, zeazdxurosm33/23/2023eneralized anxiety disorder with panic bvdckgx3811/24/2022 Crohn's disease of colon with hcqvruvbdazu89/01/2020Alcoholic intoxication without hkftotmjpzip47/28/2018 Encounters DateTypeDepartmentCare KbgwHzbeijokryk58/10/2025 1:04 PM EST - 05/14/2025 11:59 PM ESTHospital Encounter [place] [id number] Discharge Disposition: Home or Self Care04/11/2025 6:07 PM EDT - 04/11/2025 11:59 PM EDTHospital Encounter [place] [id number] Discharge Disposition: Home or Self Carefrom Last 3 Months Social History Tobacco UseTypesPacks/DayYears UsedDateSmoking Tobacco: FormerCigarettes Smokeless Tobacco: NeverAlcohol UseStandard Drinks/WeekCommentsNot Currently0 (1 standard drink = 0.6 oz pure alcohol)occass.[facility] UtilitiesAnswerDate RecordedIn the past 12 months has the [employer], gas, oil, or water company threatened to shut off services in your home?No07/20/2024UDIT-CAnswerDate RecordedQ1: How often do you have a drink containing alcohol?Never01/25/2024Q2: How many drinks containing alcohol do you have on a typical day when you are drinking?Patient does not drink01/25/2024Q3: How often do you have six or more drinks on one occasion?Never01/25/2024HQ-2AnswerDate RecordedPHQ-9 Total Lmoef117 Hunger Vital SignAnswerDate RecordedWithin the past 12 months, you worried that your food would run out before you got the money to buymore.Never true07/20/2024 Within the past 12 months, the food you bought just didn't last and you didn't have money to get more.Never true07/20/2024PRAPARE - TransportationAnswerDate RecordedIn the past 12 months, has lack of transportation kept you from medical appointments or from getting medications?No07/20/2024In the past 12 months, has lack of transportation kept you from meetings, work, or from getting things needed for daily living?No07/20/2024Housing Stability Vital SignAnswerDate RecordedIn the last 12 months, was there a time when you were not able to pay the mortgage or rent on time?No07/20/2024In the past 12 months, how many times have you moved where you were living?t any time in the past 12 months, were you homeless or living in a penitentiary (including now)?No07/20/2024 Food InsecurityAnswerDate RecordedWithin the past 12 months, you worried that your food would run out before you got the money to buymore.Within the past 12 months, the food you bought just didn't last and you didn't have money to get more.Interpersonal Safety Domain Source: IP Abuse ScreeningAnswerDate RecordedPhysical lwszaYajkhj98/16/2025Verbal abuseDenies 07/20/2024Emotional mfcdgJjkmuo05/16/2025Financial kwbizVnrxgp35/16/2025Sexual oebstYiimiu02/16/2025CommentsNoSex and Gender InformationValueDate RecordedSex Assigned at BirthNot on fileLegal BogWisknv54/10/2023 2:56 AM EDT Gender IdentityNot on fileSexual OrientationNot on file Last Filed Vital Signs Vital SignReadingTime TakenCommentsBlood Gdqbpdof841/8909/01/2024 2:38 PM EST Ukcgv54472/28/2025 2:38 PM LFYZgxysqlmtbi64.9 ??C (98.4 ??F)09/01/2024 2:38 PM ESTRespiratory Xagt366809/01/2024 2:38 PM ESTOxygen Mfyrxgkrbg948%09/01/2024 2:38 PM ESTInhaled Oxygen Concentration--Jyhcge89.4 kg (122 lb 2.2 oz)07/30/2024 4:48 AM AYJGrasgw162.2 cm (5' 7.01 )07/28/2024 12:01 PM ESTBody Mass Index19.12 07/28/2024 12:01 PM EST Plan of Treatment Health MaintenanceDue DateLast DoneCommentsFecal-DNA (Cologuard): Average risk 1987Sigmoidoscopy/CT jmkfbmuakhub58/11/1988Depression Phhxfizurw73/11/2000 Varicella vaccine (1 of 2 - 13+ 2-dose series)09/12/2000HIV hcegpy4709/12/2002 Hepatitis B vaccine (1 of 3 - 19+ 3-dose series)09/12/2006Pap smear09/12/2008 DTaP/Tdap/Td vaccine (2 - Td or Tdap)Cervical cancer screen 09/12/2017HPV (without or with Pap)09/12/2017Flu vaccine (#1)02/02/2025 06/04/2020COVID-19 Vaccine ( season)2025FIT/FOBT: Average risk /6058Vqpmcdtqvyh40/02/202512/08/2023, 06/05/2024olorectal Cancer Weeuza7906/05/2025Pneumococcal 0-49 years VaccineAged Out06/03/2020No longer eligible based on patient's age to complete this topicHepatitis C screen Vlzapdtgh46/25/2024HPV vaccine (No Doses Required)CompletedHepatitis A vaccine Aged OutNo longer eligible based on patient's age to complete this topicHib vaccineAged OutNo longer eligible based on patient's age to complete this topic Meningococcal (ACWY) vaccineAged OutNo longer eligible based on patient's age to complete this topicMeningococcal B vaccineAged OutNo longer eligible based on patient's age to complete this topicPolio vaccineAged OutNo longer eligible based on patient's age to complete this topic Procedures Procedure NamePriorityDate/TimeAssociated DiagnosisCommentsALKALINE PHOSPHATASE Atvkbpv5905/14/2025 12:08 PM EST DWSYMFWKEBYyspmru22/10/2025 12:08 PM EST XVQEQGKJOHjmuufx39/10/2025 12:08 PM EST COMPREHENSIVE METABOLIC ZWSZRCnmcwot78/10/2025 12:08 PM EST CBC WITH AUTO FUDTLXMKCXCKEadwurj95/10/2025 12:08 PM EST YUZUDYYPIYJwpjyiv66/08/2025 4:15 PM EDT ATXJYCIHHYijsowx27/08/2025 4:15 PM EDT LIPID PRWQSBqiohkr62/08/2025 4:15 PM EDT COMPREHENSIVE METABOLIC JINOZQzvebcz20/08/2025 4:15 PM EDT COLONOSCOPY W/ OR W/O FXRMJNZchtqmn45/02/2024 Crohn's disease of small and large intestines with complication (HCC) BLOOD OCCULT STOOL DIAGNOSTICSunquest Label Print05/07/2024 11:45 AM EST HEPATITIS PANEL, FCCYGRmpltey58/25/2024 3:21 AM EDT from Last 3 Months or Most Recently Relevant to Health Maintenance Results * (ABNORMAL) CBC with Auto Differential (05/14/2025 12:08 PM EST)ComponentValue Ref RangeTest MethodAnalysis TimePerformed AtPathologist SignatureWBC5.13.5 - 11.3 k/uL05/14/2025 12:08 PM [facility] LABRBC3.88(L)3.95 - 5.11 m/uL05/14/2025 12:08 PM [facility] LABHemoglobin 11.3(L)11.9 - 15.1 g/dL05/14/2025 12:08 PM [facility] Ncqsreflhk77.8(L)36.3 - 47.1 %05/14/2025 12:08 PM [facility] QPPKQO08.782.6 - 102.9 fL05/14/2025 12:08 PM [facility] HZYQDI29.125.2 - 33.5 pg05/14/2025 12:08 PM [facility] OPZMNZV88.528.4 - 34.8 g/dL05/14/2025 12:08 PM [facility] WWEHSX53.711.8 - 14.4 %05/14/2025 12:08 PM [facility] RDOVezoeihtl781142 - 453 k/uL05/14/2025 12:08 PM [facility] CUCYPG67.38.1 - 13.5 fL05/14/2025 12:08 PM [facility] LABNRBC Automated0.00.0 per 100 WBC05/14/2025 12:08 PM [facility] LABNeutrophils %6436 - 65 %05/14/2025 12:08 PM [facility] LABLymphocytes %2524 - 43 %05/14/2025 12:08 PM [facility] LABMonocytes %73 - 12 %05/14/2025 12:08 PM [facility] LABEosinophils %31 - 4 %05/14/2025 12:08 PM [facility] LABBasophils %10 - 2 %05/14/2025 12:08 PM EST [facility] LABImmature Granulocytes %00 %05/14/2025 12:08 PM [facility] LABNeutrophils Absolute3.261.50 - 8.10 k/uL 05/14/2025 12:08 PM [facility] LABLymphocytes Absolute 1.281.10 - 3.70 k/uL05/14/2025 12:08 PM [facility] Monocytes Absolute0.370.10 - 1.20 k/uL05/14/2025 12:08 PM [facility] LABEosinophils Absolute0.170.00 - 0.44 k/uL05/14/2025 12:08 PM [facility] LABBasophils Absolute0.030.00 - 0.20 k/uL 05/14/2025 12:08 PM [facility] LABImmature Granulocytes Absolute<0.030.00 - 0.30 k/uL05/14/2025 12:08 PM [facility] LABSpecimen (Source)Anatomical Location / LateralityCollection Method / VolumeCollection TimeReceived Time05/14/2025 12:08 PM EST05/14/2025 1:08 PM EST Narrative Authorizing ProviderResult TypeResult StatusKunzah Rashid DOHEMATOLOGY ORDERABLES Final ResultPerforming OrganizationAddressCity/State/ZIP CodePhone Number [facility] [address] [phone] * Phosphorus (05/14/2025 12:08 PM EST) Only the most recent of2 resultswithin the time period is included. ComponentValueRef RangeTest MethodAnalysis TimePerformed AtPathologist Signature Phosphorus3.82.5 - 4.5 mg/dL05/14/2025 12:08 PM [facility] LABSpecimen (Source)Anatomical Location / LateralityCollection Method / Volume Collection TimeReceived Time05/14/2025 12:08 PM EST05/14/2025 1:08 PM EST Narrative Authorizing ProviderResult TypeResult StatusKunzah Rashid DOCHEMISTRY ORDERABLES Final ResultPerforming OrganizationAddressCity/State/ZIP CodePhone Number [facility] [address] [place] [address], [facility] [phone] * Alkaline Phosphatase (05/14/2025 12:08 PM EST)ComponentValueRef RangeTest MethodAnalysis TimePerformed AtPathologist SignatureAlkaline Wqstqqlgtas2510 - 104 U/L107/14/2024 12:08 PM [facility] LABSpecimen (Source)Anatomical Location / LateralityCollection Method / VolumeCollection TimeReceived Time05/14/2025 12:08 PM EST05/14/2025 2:07 PM EST Narrative Authorizing ProviderResult TypeResult StatusKscionhealth Rashid DOCHEMISTRY ORDERABLES Final ResultPerforming OrganizationAddressCity/State/ZIP CodePhone Number [facility] [address] [place] [address] * Magnesium (05/14/2025 12:08 PM EST) Only the most recent of2 resultswithin the time period is included. ComponentValueRef RangeTest MethodAnalysis TimePerformed AtPathologist Signature Magnesium2.01.6 - 2.6 mg/dL05/14/2025 12:08 PM [facility] LABSpecimen (Source)Anatomical Location / LateralityCollection Method / Volume Collection TimeReceived Time05/14/2025 12:08 PM EST05/14/2025 1:08 PM EST Narrative Authorizing ProviderResult TypeResult StatusKunselect medical [facility] Rashid DOCHEMISTRY ORDERABLES Final ResultPerforming OrganizationAddressCity/State/ZIP CodePhone Number [facility] [address] [place] [address] * (ABNORMAL) Comprehensive Metabolic Panel (05/14/2025 12:08 PM EST) Only the most recent of2 resultswithin the time period is included. ComponentValueRef RangeTest MethodAnalysis TimePerformed AtPathologist Signature Fzqmcy745581 - 145 mmol/L107/14/2024 12:08 PM [facility] Potassium4.43.7 - 5.3 mmol/L107/14/2024 12:08 PM [facility] EDYJwkiwkmm39101 - 107 mmol/L107/14/2024 12:08 PM [facility] VXRWA34742 - 31 mmol/L107/14/2024 12:08 PM [facility] Anion Gap7(L)9 - 16 mmol/L107/14/2024 12:08 PM [facility] NMGPdkdiil414(H)74 - 99 mg/dL05/14/2025 12:08 PM [facility] QNOBBC62(H)6 - 20 mg/dL05/14/2025 12:08 PM [facility] Creatinine0.50.50 - 0.90 mg/dL05/14/2025 12:08 PM [facility] LABEst, Glom Filt Rate>90>60 mL/min/1.29g89505/14/2025 12:08 PM [facility] LABComment: ? These results are not intended for use in patients <18 years of age. ? eGFR results are calculated without a race factor using the 2020 CKD-EPI equation. Careful clinical correlation is recommended, particularly when comparing to results calculated using previous equations. The CKD-EPI equation is less accurate in patients with extremes of muscle mass, extra-renal metabolism of creatine, excessive creatine ingestion, or following therapy that affects renal tubular secretion. BUN/Creatinine Ratio42(H) - 12:08 PM [facility] LABCalcium8.68.6 - 10.4 mg/dL05/14/2025 12:08 PM [facility] LABTotal Protein6.76.6 - 8.7 g/dL05/14/2025 12:08 PM [facility] LABAlbumin3.93.5 - 5.2 g/dL05/14/2025 12:08 PM [facility] LABAlbumin/Globulin Ratio1.41.0 - 2.511 12:08 PM [facility] LABTotal Bilirubin0.30.00 - 1.20 mg/dL05/14/2025 12:08 PM [facility] LABAlkaline Mztjhoavfxd5490 - 104 U/L 05/14/2025 12:08 PM [facility] YHJSEJ0874 - 35 U/L 05/14/2025 12:08 PM [facility] OPWZUW3036 - 35 U/L 05/14/2025 12:08 PM [facility] LABSpecimen (Source) Anatomical Location / LateralityCollection Method / VolumeCollection Time Received Time05/14/2025 12:08 PM EST05/14/2025 1:08 PM EST Narrative Authorizing ProviderResult TypeResult StatusKunzah Rashid DOCHEMISTRY ORDERABLES Final ResultPerforming OrganizationAddressCity/State/ZIP CodePhone Number [facility] [address] [place] [phone] [phone] * Lipid Panel (04/11/2025 4:15 PM EDT)ComponentValueRef RangeTest MethodAnalysis TimePerformed AtPathologist SignatureCholesterol, Iznpx3710 - 199 mg/dL 04/11/2025 4:15 PM EDTMERCY LABORATORIESComment: Cholesterol Guidelines: <200 Desirable 200-240 ??Borderline >240 Undesirable HDL54>40 mg/dL04/11/2025 4:15 PM EDTMERCY LABORATORIESComment: HDL Guidelines: <40 Undesirable 40-59 ?Borderline >59 Desirable LDL Hygrzzyttuv184 - 100 mg/dL04/11/2025 4:15 PM EDTMERCY LABORATORIESComment: LDL Guidelines: <100 Desirable 100-129 ?? Near to/above Desirable 130-159 ?? Borderline >159 Undesirable Direct (measured) LDL and calculated LDL are not interchangeable tests. Chol/HDL Ratio2.5<5.010 4:15 PM EDTMERCY GVITRBHERCVTOauniblqsiouf09<150 mg/dL04/11/2025 4:15 PM EDTMERCY LABORATORIESComment: Triglyceride Guidelines: <150 Desirable 150-199 ??Borderline 200-499 ??High >499 Very high Based on AHA Guidelines for fasting triglyceride, April 2012. VLBZ227 - 30 mg/dL04/11/2025 4:15 PM EDTMERCY LABORATORIESSpecimen (Source) Anatomical Location / LateralityCollection Method / VolumeCollection Time Received Time04/11/2025 4:15 PM EDT1 6:11 PM EDT Narrative Authorizing ProviderResult TypeResult StatusGlbrandon Moreau [facility] DOCHEMISTRY ORDERABLESFinal ResultPerforming OrganizationAddressCity/State/ZIP CodePhone Number [facility] [address] [place] [address], [facility] [phone] [facility] [address] [place] [address], [facility] [phone] * COLONOSCOPY W/ OR W/O BIOPSY (06/05/2024) Impressions Li Mendoza MA - 06/05/2024 PROCEDURE NOTE DATE OF PROCEDURE: 06/05/2024 SURGEON: Maru Maguire MD Facility : [facility] ASSIGNMENT EDITOR: None Anesthesia: Monitored anesthesia care PREOPERATIVE DIAGNOSIS: Crohn's with flare POSTOPERATIVE DIAGNOSIS: as described below OPERATION: Total colonoscopy ANESTHESIA: Moderate Sedation ESTIMATED BLOOD LOSS: less than 50 COMPLICATIONS: None. SPECIMENS: ??Was Obtained: mil-terminal ileum biopsy HISTORY: The patient is a 38 y.o. year old female with history of above preop diagnosis. ??I recommended colonoscopy with possible biopsy or polypectomy and I explained the risk, benefits, expected outcome, and alternatives to the procedure. ??Risks included but are not limited to bleeding, infection, respiratory distress, hypotension, and perforation of the colon and possibility of missing a lesion. ??The patient understands and is in agreement. PROCEDURE: The patient was given IV conscious sedation. ??The patient's SPO2 remained above 90% throughout the procedure. Digital rectal exam- normal The colonoscope was inserted per rectum and advanced under direct vision to the cecum without difficulty. ?? Post sedation note :The patient's SPO2 remained above 90% throughout the procedure.the vital signs remained stable , and no immediate complication form the procedure noted, patient will be ready for d/c when criteria is met . The prep was fair. ?? Findings: Mil-Terminal ileum: abnormal: erosions with extrinsic narrowing; biopsy taken Cecum/Ascending colon: normal Transverse colon: normal Descending/Sigmoid colon: normal Rectum/Anus: examined in normal and retroflexed positions and was normal Withdrawal Time was (minutes): 4 Diverticulosis: none The colon was decompressed and the scope was removed. ??The patient tolerated the procedure well. Impression: Mil-terminal ileitis with stenosis Recommendations/Plan: 1. Lifestyle and dietary modifications as discussed 2. F/U Biopsies 3. CT-scan abdomen for assessment of intra-abdominal abscess 4. F/U In Office Yes 5. Repeat colonoscopy in 1 years Electronically signed by Maru Maguire MD ??on 06/05/2024 at 10:29 AM Narrative Authorizing ProviderResult TypeResult StatusMaru Maguire MDGENERAL SURGICAL ORDERABLESFinal Result * Blood Occult Stool Diagnostic (05/07/2024 11:45 AM EST)ComponentValueRef Range Test MethodAnalysis TimePerformed AtPathologist SignatureOccult Blood, Stool #0MQKGZWEUBAPRRKGJ98/03/2024 11:45 AM ESTMERCY LABORATORIESDate, Stool #9 [id number]/03/2024 11:45 AM ESTMERCY LABORATORIESTime, Stool #1UNKNOWN 05/07/2024 11:45 AM ESTMERCY LABORATORIESSpecimen (Source)Anatomical Location / LateralityCollection Method / VolumeCollection TimeReceived TimeSTOOL SPECIMEN / Bqdbvxt0405/07/2024 11:45 AM EST05/07/2024 11:45 AM EST Narrative Authorizing ProviderResult TypeResult StatusDamamta Gainesman DOBODY FLUIDS AND STOOLS ORDERABLESFinal ResultPerforming OrganizationAddressCity/State/ZIP Code Phone Number [facility] [address] [place] [address], [facility] [phone] * Hepatitis Panel, Acute (01/27/2024 3:21 AM EDT)ComponentValueRef RangeTest MethodAnalysis TimePerformed AtPathologist SignatureHepatitis B Surface Ag NGBYPWPZBRVBWGJQASSMJX01/25/2024 3:21 AM EDTMERCY LABORATORIESHepatitis C Ab AIHRRSSJGGHJQUVKMRZWBV93/25/2024 3:21 AM EDTMERCY LABORATORIESComment: ? The hepatitis C procedure used in our laboratory is a Chemiluminescent test specific for three recombinant HCV antigens. ??A negative anti-HCV result indicates that the antibodies to hepatitis C virus are not present at this time. Individuals with reactive anti-HCV should be considered infected and infectious until proven otherwise. ??Confirmation of all equivocal or reactive results is recommended by ordering HCV RNA by PCR. Hep B Core Ab, SaTVFQDZRKZCZGICNEKXMAZRT02/25/2024 3:21 AM EDTMERCY LABORATORIES Hep A LbCKHEKELVLIVGWXTHLRTKBWS92/25/2024 3:21 AM EDTMERCY LABORATORIESSpecimen (Source)Anatomical Location / LateralityCollection Method / VolumeCollection TimeReceived TimeBloodBLOOD SPECIMEN / Pnmutqn4501/27/2024 3:21 AM EDT01/27/2024 3:50 AM EDT Narrative Authorizing ProviderResult TypeResult StatusHodarren Mejia MDIMMUNOLOGY ORDERABLESFinal ResultPerforming OrganizationAddressCity/State/ZIP CodePhone Number [facility] [address] [place] [phone] [phone] from Last 3 Months or Most Recently Relevant to Health Maintenance Insurance Advance Directives * Full Code (Latest Code Status on File) Date ActivatedDate InactivatedComments07/19/2024 8:47 PM07/30/2024 2:27 PM * Full Code Date ActivatedDate EwcoanuwffqRvjhyggi95/28/2024 8:50 PM05/09/2024 9:06 PM * Full Code Date ActivatedDate InactivatedComments01/25/2024 5:17 PM01/28/2024 4:41 PM Care Teams Team MemberRelationshipSpecialtyStart DateEnd Date Dalia Apple DO [address] [facility] [address] [place] [address] PCP - [facility]07/22/24
--- OUTSIDE RECORDS SUMMARY | 2025-06-04 14:25 | XMS_ITS | Encounter Summary ---
Author Organization [facility] Address [address] [place] [address] Care Team Providers Care Fast Foods Worker Name Role Phone Berna Mike DO Unavailable Source Comments In the event this information is protected by the Federal Confidentiality of Alcohol and Drug AbusePatient Records regulations: The Federal rules restrict any use of the information to criminally investigate or prosecute any alcohol or drug abuse patient.[facility] Reason for Referral * Outpatient Procedure (Routine) - New RequestSpecialtyDiagnoses / Procedures Referred By ContactReferred To [facility] Diagnoses Bloating Procedures BREATH TEST GLUCOSE BREATH HYDROGEN/METHANE TEST Abebe Baca MD, PhD [address] [place] [address] Phone: tel: fax: [facility] [address] [place] [address] Referral IDStatusReasonStart DateExpiration DateVisits RequestedVisits [id number] Request Auto-Generated Referral Encounter Details DateTypeDepartmentCare Team (Latest Contact Info)Axenabiuuci60/20/2025Orders Only Gastroenterology [address] [address] Abebe Baca MD, PhD [address] [place] [address] Bloating (Primary Dx) Social History Tobacco UseTypesPacks/DayYears UsedDateSmoking Tobacco: NeverPassive Smoke Exposure: CurrentSmokeless Tobacco: Never Passive Exposure Comments:Hu sband smokes out side per pt 02/14/2025 Alcohol UseStandard Drinks/WeekCommentsNot Currently0 (1 standard drink = 0.6 oz pure alcohol)PHQ-2AnswerDate RecordedPHQ-2 [id number] Stability Vital SignAnswerDate RecordedIn the last 12 months, was there a time when you were not able to pay the mortgage or rent on time?No09/03/2024Number of Times Moved in the Last YearNot on file09/03/2024t any time in the past 12 months, were you homeless or living in a custodial (including now)?No09/03/2024Hunger Vital SignAnswerDate RecordedWithin the past [...] living in a custodial (including now)?No02/16/2025HC UtilitiesAnswerDate Recorded In the past 12 months has the electric, gas, oil, or water company threatened to shut off services in your home?02/16/2025rea Deprivation IndexAnswerDate RecordedNational Score (1-100), lower number is lower mgsy134107/31/2024State Score (1-10), lower number is lower lndt79307/31/2024Data from: https://www.neighborhoodatlas.[facility].edu/. Last address used for ie[address]/31/2024CommentsNoSex and Gender Information ValueDate RecordedSex Assigned at BirthNot on fileLegal TaoLoojav18/18/2025 1:54 PM ESTGender IdentityNot on fileSexual OrientationNot on filedocumented as of this encounter Functional Status * Are you deaf or do you have serious difficulty hearing?AnswerDate of XtqncfrbcxDeeqauWk21/26/2025 2:38 PM Hanane Benitez RN * Are you blind or do you have serious difficulty seeing, even when wearing glasses?AnswerDate of HqopxckuvnWwsapjYj85/26/2025 2:38 PM Hanane Benitez RN * Do you have serious difficulty walking or climbing stairs?AnswerDate of DqcmhjoapxEjovkbNj67/26/2025 2:38 PM Hanane Benitez RN * Do you have difficulty dressing or bathing?AnswerDate of AssessmentAuthorNo 08/30/2024 2:38 PM Hanane Benitez RN * Because of a physical, mental, or emotional condition, do you have difficulty doing errands alone such as visiting a doctor's office or shopping?AnswerDate of KpratqvwvoXlrmvxPh45/26/2025 2:38 PM Hanane Benitez RN documented as of this encounter Mental Status * Because of a physical, mental, or emotional condition, do you have serious difficulty concentrating, remembering, or making decisions?AnswerEntry Date PubkjpYk83/26/2025 2:38 PM Hanane Benitez RN documented in this encounter Plan of Treatment DateTypeDepartmentCare Team (Latest Contact Info)Ffmgzmgaeqq44/08/2025 1:00 PM [facility] [address] [place] [address] Bubba Johnson PSYD [address] [place] [address] follow up 7 sessions 4 of 3:00 PM [facility] [address] [address] Berna Mike DO [address] [place] [address] virtual visit/HPN/No RD barbqetwh48/15/2025 11:00 AM [facility] [address] [place] [address] Bubba Johnson PSYD [address] [place] [address] follow up 7 sessions 6 of 11:00 AM [facility] [address] [address] Patricia Dubose APRN.WATER PURIFIER [address] [facility] [address] follow up06/25/2025 11:00 AM [facility] [address] [place] [address] Bubba Johnson, PSYD [address] [place] [address] follow up 7 sessions 7 of 1:00 PM [facility] [address] [place] [address] Bubba Johnson PSYD [address] [place] [address] follow up 7 sessions 5 of 11:00 AM ESTSpecialty Pharmacy [facility] [address] [facility] [place] [address] Pharmacist, [facility]ty[facility] [address] [place] [address] [place] [address] refill Rodrick (58D) - PAx 03/12/26- [place] 07/160007/11/2025 1:15 PM [facility] Vascular Medicine [address] [place], [place] [id number] Mariam Kenny PA-C [address] [place], [place] [id number] DX: DVT08/09/2025 10:30 AM ESTAppointment Gastroenterology [address] [place] [phone] Abebe Baca MD, PhD [address] [place] [address] Crohn's disease with complication, unspecified gastrointestinal tract location (...NameTypePriorityAssociated DiagnosesOrder ScheduleBREATH TEST GLUCOSE EndoscopyRoutine Bloating 1 Occurrences starting 05/24/2025 until 05/24/2026documented as of this encounter Goals GoalPatient Goal TypeAssociated ProblemsRecent ProgressPatient-Stated?Author Blood Pressure < 130/80 Blood Gesfvvgr208/67(05/01/2025 1:49 PM EDT)Mariam Cheney PA-Cdocumented as of this encounter Visit Diagnoses Diagnosis Bloating- Primary Flatulence, eructation, and gas pain documented in this encounter Care Teams Team MemberRelationshipSpecialtyStart DateEnd Date Berna Mike DO [address] [place] [address] Home Parenteral Nutrition ProviderGastroenterology08/08/24 Community Resourse Community Resource02/16/25documented as of this encounter
--- OUTSIDE RECORDS SUMMARY | 2025-06-04 14:26 | XMS_ITS | Encounter Summary ---
Author Organization [facility] Address [address] [place] [address] Care Team Providers Care Stove Mechanic Name Role Phone Berna Mike DO Unavailable Source Comments In the event this information is protected by the Federal Confidentiality of Alcohol and Drug AbusePatient Records regulations: The Federal rules restrict any use of the information to criminally investigate or prosecute any alcohol or drug abuse patient.[facility] Encounter Details DateTypeDepartmentCare Team (Latest Contact Info)Uuuyzirwdwh30/22/2025Results Follow-Up Gastroenterology [address] [place] [address] Abebe Baca MD, PhD [address] [place] [address] Social History Tobacco UseTypesPacks/DayYears UsedDateSmoking Tobacco: NeverPassive Smoke Exposure: CurrentSmokeless Tobacco: Never Passive Exposure Comments:Mitchell pyle smokes out side per pt 02/14/2025 Alcohol UseStandard Drinks/WeekCommentsNot Currently0 (1 standard drink = 0.6 oz pure alcohol)PHQ-2AnswerDate RecordedPHQ-2 qihpk887Housing Stability Vital SignAnswerDate RecordedIn the last 12 months, was there a time when you were not able to pay the mortgage or rent on time?No09/03/2024Number of Times Moved in the Last YearNot on file09/03/2024t any time in the past 12 months, were you homeless or living in a group home (including now)?No09/03/2024Hunger Vital SignAnswerDate RecordedWithin the past [...] were you homeless or living in a group home (including now)?No02/16/2025HC UtilitiesAnswerDate Recorded In the past 12 months has the [place], gas, oil, or water [employer] threatened to shut off services in your home?02/16/2025rea Deprivation IndexAnswerDate RecordedNational Score (1-100), lower number is lower plxm500007/31/2024State Score (1-10), lower number is lower peiq72007/31/2024Data from: https://www.neighborhoodatlas.medicine.[facility].edu/. Last address used for [address] 07/31/2024CommentsNoSex and Gender Information ValueDate RecordedSex Assigned at BirthNot on fileLegal AazUxqndr39/18/2025 1:54 PM ESTGender IdentityNot on fileSexual OrientationNot on filedocumented as of this encounter Functional Status * Are you deaf or do you have serious difficulty hearing?AnswerDate of CxraclbzrcPnwxegUz40/26/2025 2:38 PM Hanane Benitez RN * Are you blind or do you have serious difficulty seeing, even when wearing glasses?AnswerDate of EnefbwujgdIfxcxeKq20/26/2025 2:38 PM Hanane Benitez RN * Do you have serious difficulty walking or climbing stairs?AnswerDate of EzamxzdkxwCbubtcKe32/26/2025 2:38 PM Hanane Benitez RN * Do you have difficulty dressing or bathing?AnswerDate of AssessmentAuthorNo 08/30/2024 2:38 PM Hanane Benitez RN * Because of a physical, mental, or emotional condition, do you have difficulty doing errands alone such as visiting a doctor's office or shopping?AnswerDate of OdjrkqnpzsQuboasGs12/26/2025 2:38 PM Hanane Benitez RN documented as of this encounter Mental Status * Because of a physical, mental, or emotional condition, do you have serious difficulty concentrating, remembering, or making decisions?AnswerEntry Date UeufudAr64/26/2025 2:38 PM Hanane Benitez RN documented in this encounter Plan of Treatment DateTypeDepartmentCare Team (Latest Contact Info)Azahcurbsga20/08/2025 1:00 PM [facility] Psychology [address] [address] Bubba Johnson PSYD [address] [place] [address] follow up 7 sessions 4 of 3:00 PM [facility] Gastroenterology [address] [address] Berna Mike DO [address] [place] [address] virtual visit/HPN/No RD /15/2025 11:00 AM EST[facility] [address] [place] [address] Bubba Johnson PSYD [address] [place] [address] follow up 7 sessions 6 of 11:00 AM [facility] [address] [address] Patricia Dubose APRN.MILITARY POLICE OFFICER [address] [facility] [place] [address] follow up06/25/2025 11:00 AM [facility] [address] [place] [address] Bubba Johnson PSYD [address] [place] [address] follow up 7 sessions 7 of 1:00 PM [facility] [address] [address] Bubba Johnson PSYD [address] [place] [address] follow up 7 sessions 5 of 11:00 AM ESTSpecialty Pharmacy [facility] [address] [place], [place] [address]34[address] [place] [address] Pharmacist, Specialty[facility] [address] [place] [address] tuill Rodrick (58D) - Rita 03/12/26- ND 1:15 PM [facility] Vascular Medicine [address] [place] [address] Mariam Kenny PA-C [address] [place] [address] DX: [id number] 10:30 AM ESTAppointment Gastroenterology [address] [place] [address] Abebe Baca MD, PhD [address] [place] [address] Crohn's disease with complication, unspecified gastrointestinal tract location (...documented as of this encounter Goals GoalPatient Goal TypeAssociated ProblemsRecent ProgressPatient-Stated?Author Blood Pressure < 130/80 Blood Fzsnpctg509/67(05/01/2025 1:49 PM EDT)Mraiam Cheney PA-Cdocumented as of this encounter Visit Diagnoses Not on filedocumented in this encounter Care Teams Team MemberRelationshipSpecialtyStart DateEnd Date Berna Mike DO [address] [place] [address] Home Parenteral Nutrition ProviderGastroenterology08/08/24 Community Resourse Community Resource02/16/25documented as of this encounter
[2025-06-04 14:48] LABS: Hematocrit 34.9 % (36.0-48.0); Hemoglobin 11.8 g/dL (12.0-16.0); Immature Granulocytes Abs Auto 0.01 10^3/uL (0.00-0.03); Immature Granulocytes Pct Auto 0.2 % (0.0-0.5); Lymphocytes Absolute Auto 1.3 10^3/uL (1.2-3.8); Mean Corpuscular HGB Conc 33.8 g/dL (29.9-35.2); Mean Corpuscular Hemoglobin 29.4 pg (26.7-34.0); Mean Corpuscular Volume 86.8 fL (81.0-99.0); Platelet Count 226 10^3/uL (150-450); Red Blood Count 4.02 10^6/uL (4.20-5.40); White Blood Count 4.7 10^3/uL (4.0-11.0)
[2025-06-04 15:05] LABS: Alanine Aminotransferase 31 U/L (14-59); Albumin Globulin Ratio 0.9; Albumin Level 3.4 g/dL (3.4-5.0); Alkaline Phosphatase 80 U/L (46-116); Anion Gap 11.9; Aspartate Amino Transferase 20 U/L (15-37); Blood Urea Nitrogen 10.0 mg/dL (7.0-18.0); Calcium 8.7 mg/dL (8.5-10.1); Carbon Dioxide 29.1 mmol/L (21.0-32.0); Chloride 106 mmol/L (98-107); Estimated GFR (African America >60 (>=60 mL/min/1.73m^2); Estimated GFR (Non-African Ame >60 (>=60 mL/min/1.73m^2); Globulin 3.8 g/dL; Glucose 95 mg/dL (74-106); Magnesium 1.8 mg/dL (1.8-2.4); Potassium 4.0 mmol/L (3.5-5.1); Sodium 143 mmol/L (136-145); Total Protein 7.2 g/dL (6.4-8.2)
== END 2025-06-04 14:23 | disposition home or self-care (01) ==
LOC: LAB 14:22
PROVIDERS: PCP Student in an Organized Health Care Education/Training Program; Visit Provider Student in an Organized Health Care Education/Training Program
DX: E44.1 Mild protein-calorie malnutrition (principal)
CPT/HCPCS: 36415; 80053; 83735; 84100; 85025

== ENCOUNTER 2025-06-18 11:27 | Outpatient (REF) | payer OTHER, SELFPAY ==
[2025-06-18 12:09] LABS: Hematocrit 34.4 % (36.0-48.0); Hemoglobin 11.2 g/dL (12.0-16.0); Mean Corpuscular HGB Conc 32.6 g/dL (29.9-35.2); Mean Corpuscular Hemoglobin 29.0 pg (26.7-34.0); Mean Corpuscular Volume 89.1 fL (81.0-99.0); Platelet Count 201 10^3/uL (150-450); Red Blood Count 3.86 10^6/uL (4.20-5.40); White Blood Count 4.8 10^3/uL (4.0-11.0)
[2025-06-18 12:23] LABS: Alanine Aminotransferase 31 U/L (14-59); Albumin Globulin Ratio 0.9; Albumin Level 3.2 g/dL (3.4-5.0); Alkaline Phosphatase 79 U/L (46-116); Anion Gap 14.6; Aspartate Amino Transferase 18 U/L (15-37); Blood Urea Nitrogen 11.0 mg/dL (7.0-18.0); Calcium 8.2 mg/dL (8.5-10.1); Carbon Dioxide 24.5 mmol/L (21.0-32.0); Chloride 107 mmol/L (98-107); Estimated GFR (African America >60 (>=60 mL/min/1.73m^2); Estimated GFR (Non-African Ame >60 (>=60 mL/min/1.73m^2); Globulin 3.6 g/dL; Glucose 117 mg/dL (74-106); Magnesium 1.9 mg/dL (1.8-2.4); Potassium 4.1 mmol/L (3.5-5.1); Sodium 142 mmol/L (136-145); Total Protein 6.8 g/dL (6.4-8.2)
== END 2025-06-18 11:28 | disposition home or self-care (01) ==
LOC: LAB 11:27
PROVIDERS: PCP Student in an Organized Health Care Education/Training Program; Visit Provider Student in an Organized Health Care Education/Training Program
DX: E44.1 Mild protein-calorie malnutrition (principal)
CPT/HCPCS: 36415; 80053; 82525; 83735; 84100; 84630; 85027; 86140

== ENCOUNTER 2025-06-20 10:58 | Outpatient (REF) | payer OTHER, SELFPAY ==
--- OUTSIDE RECORDS SUMMARY | 2024-05-01 07:30 | XMS_ITS ---
Author Organization The [facility] in [place] Address [address] [place] [address] Care Team Providers Care Application Software Engineer Name Role Phone None, Unknown or Primary Care Provider Unavailab Hemant Gruber Unavailable [phone] REASON FOR VISIT SATV/IP/Consult/Crohns/abd abscess Encounters Encounter Location Date Provider Diagnosis [address] [address] 05/01/2024 Hemant Katz Plan Of Treatment No Information Progress Notes * FRANCINE HOBSONDOB:1985 (39 yo F)Acc No.[id number]:05/01/2024 UNLOCKED PROGRESS NOTE Patient:?FRANCINE HOBSON :?Hemant Katz MDDOB:1985???Age:38 Y???Sex: FemaleDate:4Phone:[phone]:Philip [address] DR, ANASTASIYA GarciaMON[facility]3][place], [id number]:Unknown or None Subjective: * Chief Complaints: * 1 . SATV/IP/Consult/Crohns/abd abscess. * Medical History: Objective: * Vitals: Assessment: Plan: * Treatment: * * Electronic signature of Hemant Katz MD, [id number] on 06/20/2025 at 11:01 AM EST Sign off status: PendingVisit Status:?PEN (Pending) * Provider: Lizzeth Katz MD Date: Generated for Printing/Faxing/eTransmitting on:?06/20/2025 11:01 AM EST
--- OUTSIDE RECORDS SUMMARY | 2024-07-20 06:30 | XMS_ITS ---
Author Organization The [facility] in [place] Address [address] [place] [address] Care Team Providers Care Keypuncher Name Role Phone None, Unknown or Primary Care Provider Unavailab Hemant Gruber Unavailable [phone] REASON FOR VISIT STV/IP/Consult/crohns Encounters Encounter Location Date Provider Diagnosis [address] [address] 07/20/2024 Hemant Katz Plan Of Treatment No Information Progress Notes * FRANCINE HOBSONDOB:1985 (39 yo F)Acc No.[id number]:07/20/2024 UNLOCKED PROGRESS NOTE Patient:?FRANCINE HOBSON :?Hemant Katz MDDOB:1985???Age:38 Y???Sex: FemaleDate:07/20/2024Phone:[phone]:Philip [address], [place], [place]Pge:Unknown or None Subjective: * Chief Complaints: * 1 . STV/IP/Consult/crohns. * Medical History: Objective: * Vitals: Assessment: Plan: * Treatment: * * Electronic signature of Hemant Katz MD, [id number] on 06/20/2025 at 11:03 AM EST Sign off status: PendingVisit Status:?PEN (Pending) * Provider: Lizzeth Katz MD Date: 0 07/20/2024 Generated for Printing/Faxing/eTransmitting on:?06/20/2025 11:03 AM EST
--- OUTSIDE RECORDS SUMMARY | 2025-06-12 15:00 | XMS_ITS | Encounter Summary ---
Author Organization [facility] Address [address] [place] [address] Care Team Providers Care Purler Name Role Phone Berna Mike DO Unavailable Source Comments In the event this information is protected by the Federal Confidentiality of Alcohol and Drug AbusePatient Records regulations: The Federal rules restrict any use of the information to criminally investigate or prosecute any alcohol or drug abuse patient.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; Crohn's disease with complication, unspecified gastrointestinal tract location (HCC); Central venous catheter in place, permanent Social History Tobacco UseTypesPacks/DayYears UsedDateSmoking Tobacco: NeverPassive Smoke Exposure: CurrentSmokeless Tobacco: Never Passive Exposure Comments:Mitchell pyle smokes out side per pt 02/14/2025 Alcohol UseStandard Drinks/WeekCommentsNot Currently0 (1 standard drink = 0.6 oz pure alcohol)PHQ-2AnswerDate RecordedPHQ-2 xuosc56207/28/2024Housing Stability Vital SignAnswerDate RecordedIn the last 12 months, was there a time when you were not able to pay the mortgage or rent on time?No09/03/2024Number of Times Moved in the Last YearNot on file09/03/2024t any time in the past 12 months, were you homeless or living in a snf (including now)?09/03/2024Hunger Vital SignAnswerDate RecordedWithin the past 12 months, [...] homeless or living in a snf (including now)?02/16/2025HC UtilitiesAnswerDate Recorded In the past 12 months has the electric, gas, oil, or water company threatened to shut off services in your home?02/16/2025rea Deprivation IndexAnswerDate RecordedNational Score (1-100), lower number is lower hooc272307/31/2024State Score (1-10), lower number is lower likp55507/31/2024Data from: https://www.neighborhoodatlas.[facility]/. Last address used for fqzcwhzrhod[address]07/31/2024CommentsNoSex and Gender Information ValueDate RecordedSex Assigned at BirthNot on fileLegal GpbXcvvzu76/18/2025 1:54 PM ESTGender IdentityNot on fileSexual OrientationNot on filedocumented as of this encounter Functional Status * Are you deaf or do you have serious difficulty hearing?AnswerDate of MomzrwlhnsNvlewuFf37/26/2025 2:38 PM Hanane Benitez RN * Are you blind or do you have serious difficulty seeing, even when wearing glasses?AnswerDate of WgggiixwqwVwjwqtUq13/26/2025 2:38 PM Hanane Benitez RN * Do you have serious difficulty walking or climbing stairs?AnswerDate of WpbxxazxtbModsoyRe29/26/2025 2:38 PM Hanane Benitez RN * Do you have difficulty dressing or bathing?AnswerDate of AssessmentAuthorNo 08/30/2024 2:38 PM Hanane Benitez RN * Because of a physical, mental, or emotional condition, do you have difficulty doing errands alone such as visiting a doctor's office or shopping?AnswerDate of DhtoggcbfdPonrwiDa28/26/2025 2:38 PM Hanane Benitez RN documented as of this encounter Mental Status * Because of a physical, mental, or emotional condition, do you have serious difficulty concentrating, remembering, or making decisions?AnswerEntry Date BzladjQr80/26/2025 2:38 PM Hanane Benitez RN documented in this encounter Progress Notes * Berna Mike DO - 06/12/2025 3:03 PM EST [facility] SMALL BOWEL DISEASES AND NUTRITION FOLLOW UP VISIT: Date of direct communication: 06/12/25 This is a virtual visit. It required patient-provider interaction for the medical decision making as documented below. The patient verbally consented to a Virtual Visit with telephone back up as necessary. I have communicated my name and active licensure. The patient's identity and physical location were verified at the time of this visit. Either the patient or their legal medicare sales representative has beeninformed of the risks and benefits of and alternatives to treatment through a remote evaluation andconsents to proceed with the evaluation remotely. Start Time 1505; End Time 1526 [facility] STAFF PHYSICIAN NOTE OF PERSONAL INVOLVEMENT IN CARE I have reviewed the progress note obtained and documented by the Nutrition Clinician Akosua Hansen RD. I have explored in detail with the patient the HPI and ROS, and they are summarized below. I have discussed the case and management of the patient's care with the Nutrition Clinician. I agree with the recommendations as outlined by clinician above. I have reviewed available labs, and my exam and A/P are as follows: Recording using [employer] software for draft documentation of the visit was discussed with the patient/authorized medicare sales representative; all questions welcomed and answered. Patient/authorized medicare sales representative agreed to proceed Assessment IMPRESSION: Yesica Humphrey is a 39 year old F seen today for continuation of home PN support. Patientis doing well and has no malnutrition at this time. Her weight remains stable, her energy levels are good, and she continues to be well- hydrated. She is eating a regular diet. Yesica Humphrey had the opportunity to have all her concerns and questions addressed. DIAGNOSTIC ISSUES AND PLAN: 1. On total parenteral nutrition (TPN) (Z78.9) 2. Central venous catheter in place, permanent (Z95.828) Patient remains well-nourished with weight gain to 146 lbs (up from 137 lbs in March). TPN has been reduced to 4 days/week with 3 days of hydration bags. No evidence of volume overload or edema, though exam limited by virtual visit. Central line site appears clean (again, limited exam), with intermittent redness patient attributes to adhesive. Sutures remain in place since September, with prior unsuccessful removal attempt. Patient is tolerating oral intake well and is motivated to further reduce TPN. - Gradually wean off TPN over the remainder of June; continue 3 days/week hydration bags. - Coordinate with outboard motors experimental mechanic for TPN weaning and ongoing dietary support; dieticians to contact patient with instructions. - Continue daily weights at home (2x/week recommended) to monitor for weight loss; keep log. - Continue home health for dressing changes and support. - Arrange for in-person visit in early July for assessment off TPN and suture removal; will attempt suture removal in clinic if possible, or refer to appropriate service if needed. - Maintain central line for now; do not remove until TPN/hydration no longer required. - Continue ethanol locks and regular line care; monitor for infection or complications. 3. Therapeutic drug monitoring (Z51.81) No evidence of micronutrient deficiencies; recent labs stable. Low risk of fatty acid deficiency given improved diet and weight gain. No current need for repeat fatty acid panel or vitamin levels. - Continue routine labs during TPN weaning this month to monitor nutritional and metabolic status. 4. 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 Able to tolerate a more diverse diet, including spices and some vegetables. No new GI symptoms beyond baseline bloating and occasional abdominal pain. No evidence dehydration or significant malabsorption. - Continue to expand diet as tolerated; maintain focus on protein-rich, easily digestible foods. - Encourage continued oral intake and dietary diversity. 5. Crohn's disease with complication, unspecified gastrointestinal tract location (HCC) (K50.919) Crohn's disease remains stable on Skyrizi, managed by GI (Dr. Hoover). No current evidence of activeinflammation or flare. No steroids in use. Baseline bloating and intermittent abdominal pain persist but are not worse than usual. No recent vomiting. - Continue current Crohn's management regimen (Skyrizi) with GI. - Monitor for new GI symptoms or signs of flare. FOLLOW-UP: RTC week of July 2025 Berna Mike DO Staff, Department of Gastroenterology, Hepatology & Nutrition [facility] 06/12/25 Some aspects of note were written by MILES garcia PRIMARY PROBLEM: On home TPN Ms Humphrey is a 39 yo F with PMH significant for stricturing Crohn's disease complicated by SBO, s/pexlap, excision of previous ileocolonic anastomosis, end ileostomy with high output, DVT (on lovenox), initiated on home PN on 08/08/24 by our Nutrition Support Team at the [facility] at which timepatient had an SBO from Crohn's disease. Hx also significant for CRBSI. Patient was last seen in clinic on 05/01/25. INTERVAL HISTORY: Today patient reports a weight increase from 137 lb three months ago to 146 lb currently, with a goal weight of 135 lb. She attributes the weight gain to increased oral intake, including a broader range of foods and reintroduction of spices without adverse effects. She continues to avoid bananas and most fruits and vegetables, but tolerates chicken, eggs, tuna, rice, and occasional green beans and potatoes. She is currently receiving TPN 4 days per week (approximately 1300 kcal per bag) and IV hydration 3 days per week. She reports intermittent bloating and abdominal pain, which she describes as ???pressure?? and ???quite a bit of pain?? at times, but states these symptoms are not worse than usual. She has not vomited in the past week. She denies lower extremity edema or dyspnea. She is currently receiving Skyrizi for Crohn???s disease management under the care of Dr. Hoover andis no longer taking steroids. She has a Lo catheter in place for TPN and IV fluids, with no signs of infection at the site. She notes intermittent redness at the site, which she attributes to moisture and adhesive reactions, and reports that a home nurse was unable to remove the catheter sutures. CURRENT NUTRITION SUPPORT: On home TPN 4 days/week Weight history: Last 5 Encounter Wt Readings: Date: Wt: 05/23/2025 64.9 kg (143 lb) 05/01/2025 62.6 kg (138 lb) 03/30/2025 62.7 kg (138 lb 3.7 oz) 03/08/2025 62.1 kg (137 lb) 02/14/2025 65.1 kg (143 lb 8.3 oz) CURRENT MEDICATIONS: Current Outpatient Medications Medication Sig Dispense Refill [...] current facility-administered medications for this visit. ALLERGIES: Allergies Allergen Reactions Ibuprofen Other: See Comments Nsaids (Non-Steroidal Anti-Inflammatory Drug) Other: See Comments PAST MEDICAL/SURGICAL HISTORY, SOCIAL HISTORY, AND FAMILY HISTORY: Reviewed and is unchanged aside from the changes documented in HPI. REVIEW OF SYSTEMS: ROS completed and negative outside of the systems documented in the HPI. INVESTIGATIONS: All available pertinent interval investigations were reviewed and were notable for: ENDOSCOPY/PATHOLOGY: Surgical Pathology 02/2025 FINAL DIAGNOSIS A. Small Bowel, Ileostomy: - Segment of small bowel with intact enterocutaneous anastomosis with superficial erosions and post-surgical mural changes, consistent with ileostomy site changes B. Colon, Resection: - Chronic active enteritis with granulomatous inflammation, fibromuscular thickening of the submucosa and dense fibrous adhesions; consistent with Crohn disease - Negative for dysplasia - Benign reactive pericolic lymph nodes, three with non-necrotizing epithelioid granulomas IMAGING: AXR 03/30/25 IMPRESSION: No dilated loops of bowel. No significant stool burden. CXR 02/16/25 RESULT: Lines, tubes, and devices: NG tube has been placed with tip in the proximal stomach. Indwelling catheter remains in place. Lungs and pleura: Mild increase of basilar opacities with volume loss at the bases, left more than right. These may represent atelectasis, although superimposed infection/aspiration pneumonitis is not excluded. Cardiomediastinal silhouette: Normal sized heart. Unremarkable mediastinal hilar contours. Other: . US arm vein 12/29/24 IMPRESSION Compared to [...] or renal osteodystrophy. Clinical correlation is necessary. LAB WORK: Vitamin D 31.2 02/20/25 Vitamin B12 11/07/24 Physical Exam: (Limited due to Virtual Visit) LMP 05/09/2025 (Approximate) Venous Access for PN: +Lo catheter in situ General: Appears well-groomed, well-nourished, NAD Neurologic: AAO x 3 Total time of this patient encounter today was >31 mins, including: preparation for visit, direct time with the patient, examination, orders, review of records, and documentation. documented in this encounter Plan of Treatment DateTypeDepartmentCare Team (Latest Contact Info)Ukixvkhqvyl97/22/2025 11:00 AM ESTDistance [facility] [address] [place] [address] Bubba Johnson PSYD [address] [place], [place] [id number] follow up 7 sessions 7 of 11:00 AM ESTSpecialty Pharmacy [facility] [id number] [place] [address] Pharmacist, [facility] [address] [place] [address] [place] [address] refill Rodrick (58D) - PAx 03/12/26- ND 1:15 PM [facility] [address] [place] [address] Mariam Kenny PA-C [address] [place], [place] [id number] DX: 08/09/2025 10:30 AM ESTAppointment Gastroenterology [address] [place] [address] Abebe Baca MD, PhD [address] [place], [place] [id number] Crohn's disease with complication, unspecified gastrointestinal tract location (...08/17/2025 2:00 PM [facility] [address] [place] [address] Bubba Johnson PSYD [address] [place] [address] follow up 7 sessions 5 of 7documented as of this encounter Goals GoalPatient Goal TypeAssociated ProblemsRecent ProgressPatient-Stated?Author Blood Pressure < 130/80 Blood Kwikrkba090/67(05/01/2025 1:49 PM EDT)Mariam Cheney PA-Cdocumented as of this encounter Visit Diagnoses Diagnosis On total parenteral nutrition (TPN)- Primary Other specified conditions influencing health status Therapeutic drug monitoring Encounter for therapeutic drug monitoring 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
--- OUTSIDE RECORDS SUMMARY | 2025-06-18 11:00 | XMS_ITS | Encounter Summary ---
Author Organization [facility] Address [address] [place] [address] Care Team Providers Care Oil And Gas Well Treatment Operator Name Role Phone Berna Mike DO Unavailable Source Comments In the event this information is protected by the Federal Confidentiality of Alcohol and Drug AbusePatient Records regulations: The Federal rules restrict any use of the information to criminally investigate or prosecute any alcohol or drug abuse patient.[facility] Reason for Visit * ReasonCommentsFollow Up Encounter Details DateTypeDepartmentCare Team (Latest Contact Info)Wjkwoppgjzk02/15/2025 11:00 AM ESTDistance Health Psychology [address] [place] [address] Bubba Johnson PSYD [address] [place] [address] Major depressive disorder, recurrent episode, [...] drink = 0.6 oz pure alcohol)PHQ-2AnswerDate RecordedPHQ-2 ooiak80507/28/2024Housing Stability Vital SignAnswerDate RecordedIn the last 12 months, was there a time when you were not able to pay the mortgage or rent on time?No09/03/2024Number of Times Moved in the Last YearNot on file09/03/2024t any time in the past 12 months, were you homeless or living in a alf (including now)?No09/03/2024Hunger Vital SignAnswerDate RecordedWithin the past [...] were you homeless or living in a alf (including now)?02/16/2025HC UtilitiesAnswerDate Recorded In the past 12 months has the electric, gas, oil, or water company threatened to shut off services in your home?02/16/2025rea Deprivation IndexAnswerDate RecordedNational Score (1-100), lower number is lower uzpd908907/31/2024State Score (1-10), lower number is lower mhwl26007/31/2024Data from: https://www.[facility] medical centeratlas.[facility]/. Last address used for rud[address]07/31/2024CommentsNoSex and Gender Information ValueDate RecordedSex Assigned at BirthNot on fileLegal DvfVipbxy40/18/2025 1:54 PM ESTGender IdentityNot on fileSexual OrientationNot on filedocumented as of this encounter Functional Status * Are you deaf or do you have serious difficulty hearing?AnswerDate of BfpskwzhhnGjoybsDl28/26/2025 2:38 PM Hanane Benitez RN * Are you blind or do you have serious difficulty seeing, even when wearing glasses?AnswerDate of QabriraxyyMofmftRj17/26/2025 2:38 PM Hanane Benitez RN * Do you have serious difficulty walking or climbing stairs?AnswerDate of KzvsfrjxvlNxrhtrPn40/26/2025 2:38 PM Hanane Benitez RN * Do you have difficulty dressing or bathing?AnswerDate of AssessmentAuthorNo 08/30/2024 2:38 PM Hanane Benitez RN * Because of a physical, mental, or emotional condition, do you have difficulty doing errands alone such as visiting a doctor's office or shopping?AnswerDate of SphgimfyiuRdhcvxWu44/26/2025 2:38 PM Hanane Benitez RN documented as of this encounter Mental Status * Because of a physical, mental, or emotional condition, do you have serious difficulty concentrating, remembering, or making decisions?AnswerEntry Date CffqjjSc27/26/2025 2:38 PM Hanane Benitez RN documented in this encounter Progress Notes * Bubba Johnson PSYD - 06/18/2025 11:12 AM EST Images from the original note were not included. [facility] June 18, 2025 Yesica Milagro CPT Code: 69768 Psychotherapy 38-52 minutes Time initiated session: 11:12 AM to 11:58 AM I have communicated my name and active licensure. The patient's identity and physical location wereverified at the time of this visit. Either the patient or their legal traffic workforce representative has been informed of the risks and benefits of -- and alternatives to -- treatment through a remote evaluation andconsents to proceed with the evaluation remotely. Recording using ambient [employer] software for draft documentation of the visit was discussed with the patient/authorized traffic workforce representative; all questions welcomed and answered. Patient/authorized traffic workforce representative agreed to proceed Collateral Parties Present: none. Subjective: The patient is a 39-year-old female with Crohn???s disease and major depressive disorder, presenting for follow-up. Patient is a 39-year-old female with a history of MDD, psychological factors affecting physical condition, Crohn's disease, and fatigue, presenting for follow-up. Patient reports improvement in her GI symptoms, noting only two bad days since the last visit, which she attributes to dietary discomfort rather than severe issues. She has been consistently practicing hypnosis, missing only 4-5 days,and has been strict with her probiotics. She mentions a stopping point in her regimen to prevent exacerbations. She expresses significant anxiety about the potential removal of her line next month, which led to a two-day period of not eating due to stress. The line provides her with a sense of security, and she fears relying solely on her body's ability to maintain hydration and nutrition. She describes a lack of trust in her body's reliability, stating that even when following medical advice perfectly, she still experiences flare-ups. Patient reports feeling burnt out and experiencing treatment fatigue due to the constant management of her Crohn's disease. She expresses frustration and jealousy over the limitations imposed by her condition, feeling that she lacks the luxury or the option to engage in activities that otherscan. She describes a sense of betrayal by her body and difficulty in loving herself when in pain. She has been delaying other medical issues, such as numbness in her leg and cysts on her ovaries, due to exhaustion from frequent medical appointments and a desire to focus on her Crohn's disease. She mentions a fear of bladder cancer, influenced by her mother's from the disease two years ago, which contributes to her reluctance to pursue further testing. Despite these challenges, she remains motivated to manage her health for the sake of her son, who she states still needs me. Her sister also provides significant support, reminding her of her importance to the family during difficult times. Patient has been experimenting with dietary changes, focusing on organic foods and avoiding certaincarbohydrates. She reports feeling a thousand percent better than last year, when she was in severe pain and weighed 98 pounds. She acknowledges the difficulty in maintaining a positive outlook, often feeling that her efforts are futile, but she continues to strive for improvement. FMHx - Bladder cancer (mother) Current Meds - Probiotics PMHx - Major depressive disorder - Psychological factors affecting physical condition - Crohn???s disease - Fatigue Social Hx - Number of children: 1 son - Diet habits: Avoids processed foods, uses mostly organic products, carefully selects foods to manage Crohn???s symptoms Objective: Patient was seen virtually via synchronized teleconfrence Constitutional: (+) fatigue, (+) decreased appetite Gastrointestinal: (+) abdominal discomfort, (+) abdominal pain, (-) vomiting Genitourinary: (+) urinary retention Neurological: (+) leg numbness Assessment: Patient Data Generalized Anxiety Disorder Scale (JAYLENE-7) 03/15/2025 05/28/2025 JAYLENE - 7 SCORES Score 13 7 7 (0-4) minimal anxiety, (5-9) mild anxiety, (10-14) moderate anxiety, (15-21) severe anxiety Patient Health Questionnaire (PHQ-9) 03/15/2025 05/28/2025 PHQ-9 Score 18 12 12 (0-4) minimal depression, (5-9) mild depression, (10-14) moderate depression, (15-19) moderately severe depression, (20-27) severe depression PROMIS Global Health 09/28/2024 03/15/2025 06/18/2025 PROMIS Global Health - (T-Scores - the mean of general population = 50. Five points is a clinicallymeaningful difference.) Physical T-Score 32.4 32.4 34.9 47.7 47.7 Mental T-Score 28.4 28.4 25.1 33.8 33.8 Current Outpatient Medications Medication Sig enoxaparin (LOVENOX) [...] No current facility-administered medications for this visit. Plan: # Major depressive disorder, recurrent episode, moderate with anxious distress (HCC) (F33.1) # Psychological factor affecting physical condition (F54) # Other fatigue (R53.83) - Moderate, recurrent MDD with anxious distress; psychological factors contributing to physical symptoms and fatigue. - Discussed impact of chronic illness on mental health, including treatment fatigue, frustration, and anxiety related to Crohn's disease management. - Encouraged patient to focus on present moment and reconnect with personal motivations for health maintenance. - Provided supportive counseling and education on managing negative thought patterns and maintaining self-care. - Sent session two hypnosis recording for patient to use independently; will review effectiveness at next visit. - Follow-up on to reassess mental health status and response to interventions. # Crohn's disease with complication, unspecified gastrointestinal tract location (HCC) (K50.919) - GI symptoms improving; patient has had only two mild episodes of discomfort since last visit. - Patient is adhering to dietary modifications, probiotics, and hypnosis therapy. - Discussed upcoming potential removal of central line and associated anxiety; provided reassuranceand support. - Encouraged continued adherence to dietary modifications and stress management techniques. Trainee signature (if applicable): Supervising Licensed Psychologist & Billing Provider: Bubba Johnson PSYD documented in this encounter Plan of Treatment DateTypeDepartmentCare Team (Latest Contact Info)Mzmgzpibrue50/22/2025 11:00 AM [facility] Psychology [address] [place], [place] [id number] Bubba Johnson PSYD [address] [place], [place] [id number] follow up 7 sessions 7 of 11:00 AM ESTSpecialty Pharmacy [facility] [address] [place] [address] [address] Pharmacist, Specialtygroup [address] [place] [address] refill Rodrick (56D) - PAx 03/12/26- ND 1:15 PM [facility] Vascular Medicine [address] [place] [address] Mariam Kenny PA-C [address] [place] [address] DX: 08/09/2025 10:30 AM ESTAppointment Gastroenterology [address] [place] [address] Abebe Baca MD, PhD [address] [place], [place] [phone] Crohn's disease with complication, unspecified gastrointestinal tract location (...08/17/2025 2:00 PM ESTDistan [facility] [address] [place] [address] Bubba Johnson PSYD [address] [place] [address] follow up 7 sessions 5 of 7documented as of this encounter Goals GoalPatient Goal TypeAssociated ProblemsRecent ProgressPatient-Stated?Author Blood Pressure < 130/80 Blood Dxqhuonb055/67(05/01/2025 1:49 PM EDT)Mariam Cheney PA-Cdocumented as of this encounter Visit Diagnoses Diagnosis Major depressive disorder, recurrent episode, moderate with anxious distress (HCC)- Primary Psychological factor affecting physical condition Psychic factors associated with diseases classified elsewhere Crohn's disease with complication, unspecified gastrointestinal tract location (HCC) Other fatigue documented in this encounter Care Teams Team MemberRelationshipSpecialtyStart DateEnd Date Berna Mike DO [address] [place] [address] Home Parenteral Nutrition ProviderGastroenterology08/08/24 Community Resourse Community Resource02/16/25documented as of this encounter
--- OUTSIDE RECORDS SUMMARY | 2025-06-20 11:01 | XMS_ITS | Clinical Summary ---
Author Organization [facility] Address [address] [place] [address] Care Team Providers Care Funeral Home Assistant Name Role Phone Unavailable Primary Care Provider Unavailabl e Social History Tobacco UseTypesPacks/DayYears UsedDateSmoking Tobacco: Never Assessed CommentsUnknownSex and Gender InformationValueDate RecordedSex Assigned at Not on fileLegal VizCsthmj38/04/2023 12:16 PM EDTGender IdentityNot on file Sexual OrientationNot on file Last Filed Vital Signs Vital SignReadingTime TakenCommentsBlood Rewmladg186/68010/02/2022 12:00 PM EDT Pulse--Temperature--Respiratory Rate--Oxygen Saturation--Inhaled Oxygen Concentration--Wtexjd57.9 kg (121 lb)10/02/2022 12:00 PM CNMKoalac527.2 cm (5' 7 )10/02/2022 12:00 PM EDTBody Mass Index18.95010/02/2022 12:00 PM EDT Plan of Treatment Not on file
--- OUTSIDE RECORDS SUMMARY | 2025-06-20 11:02 | XMS_ITS | Encounter Summary ---
Author Organization [facility] Address [address] [place] [address] Care Team Providers Care Professional Nursing Assistant Name Role Phone Berna Mike DO Unavailable Source Comments In the event this information is protected by the Federal Confidentiality of Alcohol and Drug AbusePatient Records regulations: The Federal rules restrict any use of the information to criminally investigate or prosecute any alcohol or drug abuse patient.[facility] Reason for Visit * ReasonCommentsResultsPN weaning Encounter Details DateTypeDepartmentCare Team (Latest Contact Info)Sjexonteyfb79/03/2025Telephone Gastroenterology [address] [id number] Shot Hole Driller, n [address] [place] [address] Results (PN weaning) Social History Tobacco UseTypesPacks/DayYears UsedDateSmoking Tobacco: NeverPassive Smoke Exposure: CurrentSmokeless Tobacco: Never Passive Exposure Comments:Mitchell pyle smokes out side per pt 02/14/2025 Alcohol UseStandard Drinks/WeekCommentsNot Currently0 (1 standard drink = 0.6 oz pure alcohol)PHQ-2AnswerDate RecordedPHQ-2 jbjpy20707/28/2024Housing Stability Vital SignAnswerDate RecordedIn the last 12 [...] In the past 12 months has the [employer] gas, oil, or water [employer] threatened to shut off services in your home?02/16/2025rea Deprivation IndexAnswerDate RecordedNational Score (1-100), lower number is lower npxo781007/31/2024State Score (1-10), lower number is lower wtwx34807/31/2024Data from: https://www.neighborhoodatlas.medicine.[place].edu/. Last address used for q[address] 07/31/2024CommentsNoSex and Gender Information ValueDate RecordedSex Assigned at BirthNot on fileLegal ThrQdpuij27/18/2025 1:54 PM ESTGender IdentityNot on fileSexual OrientationNot on filedocumented as of this encounter Functional Status * Are you deaf or do you have serious difficulty hearing?AnswerDate of HavfheprqfHqkoubYh50/26/2025 2:38 PM Hanane Benitez RN * Are you blind or do you have serious difficulty seeing, even when wearing glasses?AnswerDate of NpayioddaoJvzwbzMz04/26/2025 2:38 PM Hanane Benitez RN * Do you have serious difficulty walking or climbing stairs?AnswerDate of BxkhjdwdmbLvjpxqUd67/26/2025 2:38 PM Hanane Benitez RN * Do you have difficulty dressing or bathing?AnswerDate of AssessmentAuthorNo 08/30/2024 2:38 PM Hanane Benitez RN * Because of a physical, mental, or emotional condition, do you have difficulty doing errands alone such as visiting a doctor's office or shopping?AnswerDate of PbkesdqfroXwgykpSp85/26/2025 2:38 PM Hanane Benitez RN documented as of this encounter Mental Status * Because of a physical, mental, or emotional condition, do you have serious difficulty concentrating, remembering, or making decisions?AnswerEntry Date EvkxopRt18/26/2025 2:38 PM Hanane Benitez RN documented in this encounter Miscellaneous Notes * Telephone Encounter - Jonnie Fall, RD - 06/06/2025 11:36 AM EST Home Nutrition Support Service Labs reviewed and stable. Call to pt who states she has been doing well with PN 5 days/week. Feels that appetite and PO intake have improved with decrease in PN days. States eating 1-3 meals per day and drinking 1 corelife or ensure per day. Weight up to 146 lb. Pt reports variable BM from 5-10+ per day. Usinf 1L IVF on PN off days to maintain hydration. BUN/sCr wnl. Discussed decreasing PN to 4 d ays/week. Pt agreeable. Discussed infusing 1L IVF on PN off days but also has PRN IVF ordered if needed. Rec: decrease PN infusions to 4 days/week - Infuse 1L IVF on PN of days - Labs week of 06/18 to reflect. Consider further decreasing days vs decreasing kcal next Jonnie Fall RD, LD, CNSC documented in this encounter Plan of Treatment DateTypeDepartmentCare Team (Latest Contact Info)Lvjvixjnujj50/22/2025 11:00 AM ESTDistance [facility] [address] [place] [address] Bubba Johnson PSYD [address] [place] [address] follow up 7 sessions 7 of 11:00 AM ESTSpecialty Pharmacy [facility] [address] [place] [phone]-[phone] [place] [address] Pharmacist, Specialty[facility] [address] [place] [phone] refill Rodrick (56D) - PAx 03/12/26- ND 1:15 PM [facility]Dis[facility] [address] [place], [place] [phone] Mariam Kenny PA-C [address] [place] [address] DX: DVT08/09/2025 10:30 AM ESTAppointment Gastroenterology [address] [place] [phone] Abebe Baca MD, PhD [address] [place], [place] [phone] Crohn's disease with complication, unspecified gastrointestinal tract location (...08/17/2025 2:00 PM [facility] [address] [place] [address] Bubba Johnson PSYD [address] [place] [address] follow up 7 sessions 5 of 7documented as of this encounter Goals GoalPatient Goal TypeAssociated ProblemsRecent ProgressPatient-Stated?Author Blood Pressure < 130/80 Blood Atdnupup414/67(05/01/2025 1:49 PM EDT)Mariam Cheney PA-Cdocumented as of this encounter Visit Diagnoses Not on filedocumented in this encounter Care Teams Team MemberRelationshipSpecialtyStart DateEnd Date Berna Mike DO [address] [place], [place] [phone] Home Parenteral Nutrition ProviderGastroenterology08/08/24 Community Resourse Community Resource02/16/25documented as of this encounter
--- OUTSIDE RECORDS SUMMARY | 2025-06-20 11:02 | XMS_ITS | Encounter Summary ---
Author Organization [facility] Address [address] [place] [address] Care Team Providers Care Revenue Collector Name Role Phone Berna Mike DO Unavailable Source Comments In the event this information is protected by the Federal Confidentiality of Alcohol and Drug AbusePatient Records regulations: The Federal rules restrict any use of the information to criminally investigate or prosecute any alcohol or drug abuse patient.[facility] Encounter Details DateTypeDepartmentCare Team (Latest Contact Info)Cumbteqzzdp16/04/2025Telephone Gastroenterology [address] [phone] Berna Mike DO [address] [place] [address] Social History Tobacco UseTypesPacks/DayYears UsedDateSmoking Tobacco: NeverPassive Smoke Exposure: CurrentSmokeless Tobacco: Never Passive Exposure Comments:Mitchell pyle smokes out side per pt 02/14/2025 Alcohol UseStandard Drinks/WeekCommentsNot Currently0 (1 standard drink = 0.6 oz pure alcohol)PHQ-2AnswerDate RecordedPHQ-2 bnoef150/24/2025Housing Stability Vital SignAnswerDate RecordedIn the last 12 months, was there a time when you were not able to pay the mortgage or rent on time?No09/03/2024Number of Times Moved in the Last YearNot on file09/03/2024t any time in the past 12 months, were you homeless or living in a chcf (including now)?No09/03/2024Hunger Vital SignAnswerDate RecordedWithin the past [...] were you homeless or living in a chcf (including now)?02/16/2025HC UtilitiesAnswerDate Recorded In the past 12 months has the [place], gas, oil, or water [employer] threatened to shut off services in your home?02/16/2025rea Deprivation IndexAnswerDate RecordedNational Score (1-100), lower number is lower rbkr613407/31/2024State Score (1-10), lower number is lower hmwt62307/31/2024Data from: https://www.neighborhoodatlas.medicine.[facility].edu/. Last address used for qt[address] [place] 07/31/2024CommentsNoSex and Gender Information ValueDate RecordedSex Assigned at BirthNot on fileLegal IelMsxali06/18/2025 1:54 PM ESTGender IdentityNot on fileSexual OrientationNot on filedocumented as of this encounter Functional Status * Are you deaf or do you have serious difficulty hearing?AnswerDate of BhxqktsnzxVfeerkAv87/26/2025 2:38 PM Hanane Benitez RN * Are you blind or do you have serious difficulty seeing, even when wearing glasses?AnswerDate of GhzvsbsjexZnqzdeYo47/26/2025 2:38 PM Hanane Benitez RN * Do you have serious difficulty walking or climbing stairs?AnswerDate of KqftaeuvllNzcrvyDr29/26/2025 2:38 PM Hanane Benitez RN * Do you have difficulty dressing or bathing?AnswerDate of AssessmentAuthorNo 08/30/2024 2:38 PM Hanane Benitez RN * Because of a physical, mental, or emotional condition, do you have difficulty doing errands alone such as visiting a doctor's office or shopping?AnswerDate of OviaqqozjgCtzypfPn52/26/2025 2:38 PM Hanane Benitez RN documented as of this encounter Mental Status * Because of a physical, mental, or emotional condition, do you have serious difficulty concentrating, remembering, or making decisions?AnswerEntry Date YfwdkeNs88/26/2025 2:38 PM Hanane Benitez RN documented in this encounter Miscellaneous Notes * Telephone Encounter - Debi Lynn RN - 06/07/2025 2:28 PM EST Received phone call today from [facility] that they have re certified their services with the pt. documented in this encounter Plan of Treatment DateTypeDepartmentCare Team (Latest Contact Info)Ecyosqcqbzp20/22/2025 11:00 AM ESTDistance [facility] Psychology [address] [place] [address] Bubba Johnson PSYD [address] [place] [address] follow up 7 sessions 7 of 11:00 AM ESTSpecialty Pharmacy [facility] [id number] [place] [address] Pharmacist, [facility]ty[facility] [address] [place] [address] [place] [address] refill Rodrick (58D) - PAx 03/12/26- [place] 1:15 PM [facility] Vascular Medicine [address] [place] [address] Mariam Kenny PA-Radha [address] [place] [address] DX: 08/09/2025 10:30 AM ESTAppointment Gastroenterology [address] [place] [address] Abebe Baca MD, PhD [address] [place] [address] Crohn's disease with complication, unspecified gastrointestinal tract location (...08/17/2025 2:00 PM [facility] Psychology [address] [place] [address] Bubba Johnson PSYD [address] [place], [place] [phone] follow up 7 sessions 5 of 7documented as of this encounter Goals GoalPatient Goal TypeAssociated ProblemsRecent ProgressPatient-Stated?Author Blood Pressure < 130/80 Blood Fzfuxyvc371/67(05/01/2025 1:49 PM EDT)Mariam Cheney PA-Cdocumented as of this encounter Visit Diagnoses Not on filedocumented in this encounter Care Teams Team MemberRelationshipSpecialtyStart DateEnd Date Berna Mike DO [address] [place] [address] Home Parenteral Nutrition ProviderGastroenterology08/08/24 Community Resourse Community Resource02/16/25documented as of this encounter
--- OUTSIDE RECORDS SUMMARY | 2025-06-20 11:02 | XMS_ITS | Patient Health Record ---
Author Organization [facility] [place] Address [address] [place] [address] Care Team Providers Care Precision Honing Machine Operator Name Role Phone None, Unknown or Primary Care Provider Unavailab Hemant Gruber Unavailable [phone] Reason For Referral No Information Encounters Encounter Location Date Provider Diagnosis [address] [phone] 07/20/2024 Abed Sterling Plan Of Treatment No Information Insurance Providers Payer Name Payer Address Payer Phone Subscriber Number Group Number Insured Name Patient Relationship to Insured Coverage Start Date Coverage End Date [facility] MEDICA[facility] [address] [place], [place] [id number] CSOHFRANCINE HENRIQUEZ Self - patient is the insured 4
--- OUTSIDE RECORDS SUMMARY | 2025-06-20 11:02 | XMS_ITS | Encounter Summary ---
Author Organization [facility] Address [address] [place] [address] Care Team Providers Care Electronic Equipment Installer Name Role Phone Berna Mike DO Unavailable Source Comments In the event this information is protected by the Federal Confidentiality of Alcohol and Drug AbusePatient Records regulations: The Federal rules restrict any use of the information to criminally investigate or prosecute any alcohol or drug abuse patient.[facility] Encounter Details DateTypeDepartmentCare Team (Latest Contact Info)Fegamjovfyo36/03/2025 Patient Msg Gastroenterology [address] [phone] Provider, [facility] Appointment / Rescheduled Social History Tobacco UseTypesPacks/DayYears UsedDateSmoking Tobacco: NeverPassive Smoke Exposure: CurrentSmokeless Tobacco: Never Passive Exposure Comments:Mitchell pyle smokes out side per pt 02/14/2025 Alcohol UseStandard Drinks/WeekCommentsNot Currently0 (1 standard drink = 0.6 oz pure alcohol)PHQ-2AnswerDate RecordedPHQ-2 vfwxc59807/28/2024Housing Stability Vital SignAnswerDate RecordedIn the last 12 months, was there a time when you were not able to pay the mortgage or rent on time?No09/03/2024Number of Times Moved in the Last YearNot on file09/03/2024 any time in the past 12 months, were you homeless or living in a mcfp (including now)?No09/03/2024Hunger Vital SignAnswerDate RecordedWithin the past [...] were you homeless or living in a mcfp (including now)?02/16/2025HC UtilitiesAnswerDate Recorded In the past 12 months has the electric, gas, oil, or water company threatened to shut off services in your home?02/16/2025rea Deprivation IndexAnswerDate RecordedNational Score (1-100), lower number is lower mobd112007/31/2024State Score (1-10), lower number is lower aqvg58207/31/2024Data from: https://www.neighborhoodatlas.medicine.[facility].edu/. Last address used for y[address] [place] 07/31/2024CommentsNoSex and Gender Information ValueDate RecordedSex Assigned at BirthNot on fileLegal NejLtmcxc53/18/2025 1:54 PM ESTGender IdentityNot on fileSexual OrientationNot on filedocumented as of this encounter Functional Status * Are you deaf or do you have serious difficulty hearing?AnswerDate of IttkmlcnaeDauvvpYr25/26/2025 2:38 PM Hanane Benitez RN * Are you blind or do you have serious difficulty seeing, even when wearing glasses?AnswerDate of ZwmzfkruhjDdbttiKp78/26/2025 2:38 PM Hanane Benitez RN * Do you have serious difficulty walking or climbing stairs?AnswerDate of JxyixssguhZdsxxwXp76/26/2025 2:38 PM Hanane Benitez RN * Do you have difficulty dressing or bathing?AnswerDate of AssessmentAuthorNo 08/30/2024 2:38 PM Hanane Benitez RN * Because of a physical, mental, or emotional condition, do you have difficulty doing errands alone such as visiting a doctor's office or shopping?AnswerDate of LpisvwwqueLmqlvwUz89/26/2025 2:38 PM Hanane Benitez RN documented as of this encounter Mental Status * Because of a physical, mental, or emotional condition, do you have serious difficulty concentrating, remembering, or making decisions?AnswerEntry Date IzipfdPd12/26/2025 2:38 PM Hanane Benitez RN documented in this encounter Plan of Treatment DateTypeDepartmentCare Team (Latest Contact Info)Sindecduzyy15/22/2025 11:00 [facility] [address] [place] [address] Bubba Johnson PSYD [address] [place] [address] follow up 7 sessions 7 of 11:00 AM ESTSpecialty Pharmacy [facility] [place] [address] Pharmacist, [facility]ty[facility] [address] [place] [address] rufino Mensah (58D) - Rita 03/12/26- [place] 1:15 PM [facility] Vascular Medicine [address] [place] [address] Mariam Kenny PA-C [address] [place] [address] DX: DVT08/09/2025 10:30 AM ESTAppointment Gastroenterology [address] [place] [address] Abebe Baca MD, PhD [address] [place] [address] Crohn's disease with complication, unspecified gastrointestinal tract location (...08/17/2025 2:00 PM [facility] Psychology [address] [place] [address] Bubba Johnson PSYD [address] [place], [place] [phone] follow up 7 sessions 5 of 7documented as of this encounter Goals GoalPatient Goal TypeAssociated ProblemsRecent ProgressPatient-Stated?Author Blood Pressure < 130/80 Blood Nhesdeuh611/67(05/01/2025 1:49 PM EDT)Mariam Cheney PA-Cdocumented as of this encounter Visit Diagnoses Not on filedocumented in this encounter Care Teams Team MemberRelationshipSpecialtyStart DateEnd Date Berna Mike DO [address] [place] [address] Home Parenteral Nutrition ProviderGastroenterology08/08/24 Community Resourse Community Resource02/16/25documented as of this encounter
--- OUTSIDE RECORDS SUMMARY | 2025-06-20 11:02 | XMS_ITS | Clinical Summary ---
Author Organization [facility] Address [address] [place] [address] Care Team Providers Care Rides Supervisor Name Role Phone Berna Mike DO Unavailable [...] nausea/vomiting. 60 tablet 5Active OTC PRODUCT Probiotic osxtwu435Active Cholecalciferol, Vitamin D3, (VITAMIN D) 25 mcg [...] contents of syringe daily. 30 each 5Active Active Problems ProblemNoted DateDiagnosed DateIleus following gastrointestinal [...] is on AC at home Attention to zgpcpouhy01/14/2025 Assessment & Plan (02/21/2025 2:03 PM EDT): [...] disease of small and large intestines with xpgkevfyfirk42/02/2025 Assessment & Plan (02/21/2025 2:03 PM EDT): [...] deep vein thrombosis (DVT) of left upper vkqempxrl11/01/2025ute deep vein thrombosis (DVT) of left upper extremity, unspecified vein09/02/2024High output fkfjdtsyn34/25/2025 Assessment & Plan (08/29/2024 2:23 PM EST): [...] medicine, appreciate recs [place] lovenox Anticoagulation management akwbxhyxv65/24/2025 Assessment & Plan (08/29/2024 2:21 PM EST): [...] & Plan (02/21/2025 2:04 PM EDT): PLAN: [facility] Assessment & Plan (02/20/2025 1:24 PM EDT): [facility] Assessment & Plan (02/19/2025 10:52 AM EDT): PLAN: [facility] Assessment & Plan (02/16/2025 12:02 PM EDT): PLAN: [facility] Assessment & Plan (08/29/2024 2:22 PM EST): PLAN: [facility] Consult APMS for repeat TAP block, hold off for now Assessment & Plan (08/29/2024 2:21 PM EST): PLAN: [facility] Consult APMS for repeat TAP block, hold off for now Assessment & Plan (08/24/2024 11:30 AM EST): PLAN: [facility] Consult APMS for repeat TAP block, hold off for now Assessment & Plan (08/23/2024 7:39 AM EST): PLAN: [facility] Consult APMS for repeat TAP block, hold off for now Assessment & Plan (08/22/2024 8:48 AM EST): PLAN: [facility] Consult APMS for repeat TAP block, hold off for now Assessment & Plan (08/21/2024 2:49 PM EST): PLAN: [facility] Consult APMS for repeat TAP block, hold off for now Difficult intravenous iopmme7908/21/2024 Assessment & Plan (08/29/2024 2:22 PM EST): [...] psychology, appreciate recs Crohn's colitis, with intestinal gyeknnighar61/13/2025 Assessment & Plan (08/29/2024 2:22 PM EST): [...] Consider nicotine patches, appreciate recs Small bowel /01/2025 Assessment & Plan (08/29/2024 2:22 PM EST): [...] Plan (02/21/2025 2:04 PM EDT): PLAN: Consult OSMEL, appreciate recs [...] OSMEL, appreciate recs Assessment & Plan (08/24/2024 11:29 AM EST): PLAN: Consult OSMEL, appreciate recs Assessment & Plan (08/23/2024 7:39 AM EST): PLAN: Dorita BOLIVAR appreciate recs Assessment & Plan (08/22/2024 8:48 AM EST): PLAN: Consult OSMEL, appreciate recs Assessment & Plan (08/21/2024 2:52 PM EST): PLAN: Dorita BOLIVAR appreciate recs Feeding yumelbqjrndk59/27/2025Therapeutic drug ezelzzqzrt29/27/2025Malnutrition of moderate ceccdc0007/31/2024 Assessment & Plan (02/21/2025 2:03 PM EDT): PLAN: Dorita BOLIVAR appreciate recs Assessment & Plan (02/20/2025 1:24 PM EDT): PLAN: Consult SUKHWINDERT, appreciate recs Assessment & Plan (02/19/2025 10:52 AM EDT): PLAN: Consult SUKHWINDERT, appreciate recs Assessment & Plan (08/29/2024 2:22 PM EST): PLAN: Consult SKUHWINDERT, appreciate recs Assessment & Plan (08/29/2024 2:21 PM EST): PLAN: Consult SUKHWINDERT, appreciate recs Assessment & Plan (08/24/2024 11:30 AM EST): PLAN: Consult OSMEL, appreciate recs Assessment & Plan (08/23/2024 7:39 AM EST): PLAN: Consult OSMEL, appreciate recs Assessment & Plan (08/22/2024 8:48 AM EST): PLAN: Consult OSMEL, appreciate recs Assessment & Plan (08/21/2024 2:49 PM EST): PLAN: Consult OSMEL, appreciate recs Partial small bowel vviytmckccp76/26/2025 Assessment & Plan (08/29/2024 2:22 PM EST): [...] of both small and large intestine with inxdgyy9807/30/2024 Assessment & Plan (08/29/2024 2:22 PM EST): [...] previous ileocolic anastomosis, end ileostomy (08/18/24) Mood wwaaglui26/26/2025 Assessment & Plan (02/21/2025 2:03 PM EDT): [...] Resolved Problems ProblemNoted DateDiagnosed DateResolved DateAbdominal fluid /26/2025 08/07/2024 Encounters DateTypeDepartmentCare YzpyZprirnmndve00/17/2025 Patient Msg HL Provider Adult [address] 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 Oqnjbbeyoq38/15/2025 11:00 AM EST [facility] [address] [place], [place] [id number] Bubba Johnson PSYD Major depressive disorder, recurrent episode, moderate with anxious distress (HCC) (Primary Dx); Psychological factor affecting physical condition; Crohn's disease with complication, unspecified gastrointestinal tract location (HCC); Other eajdgdc7506/18/2025[facility] [address] [place], [place] [phone] Motorcycle Police Officer, Hpn Patient Update (Clinic Sign Out)06/12/2025 3:00 PM [facility] Gastroenterology [address] [place], [place] [phone] Berna Mike DO On total parenteral nutrition (TPN) (Primary Dx); Therapeutic drug monitoring; 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; Crohn's disease with complication, unspecified gastrointestinal tract location (HCC); Central venous catheter in place, gygcxafcz74/04/2025[facility] [address] [place], [place] [phone] Berna Mike DO 06/06/2025 Patient Msg Gastroenterology [address] [place] [phone] Provider, [facility] Appointment / Iostoxrbwhi07/03/2025[facility] [address] [place], [place] [phone] Motorcycle Police Officer, Hpn Results (PN weaning)06/05/2025[facility] [address] [place], [place] [phone] Abebe Baca MD, PhD Oerwvm8606/04/2025 2:00 PM [facility] Psychology [address] [place] [address] Bubba Johnson PSYD Major depressive disorder, recurrent episode, moderate with anxious distress (HCC) (Primary Dx); Psychological factor affecting physical condition; Crohn's disease with complication, unspecified gastrointestinal tract location (HCC); Other zllcndh9105/28/2025 4:00 PM [facility] Psychology [address] [place] [address] Bubba Johnson PSYD Major depressive disorder, recurrent episode, moderate with anxious distress (HCC) (Primary Dx); Psychological factor affecting physical condition; Crohn's disease with complication, unspecified gastrointestinal tract location (HCC); Other maebkui3905/28/20256702Krefib39/21/2025 Patient Msg Gastroenterology [address] [address] Grace Monterroso RPh Checking In05/24/2025Orders Only Gastroenterology [address] [address] Abebe Baca MD, PhD Bloating (Primary Dx)05/23/2025 3:00 PM ESTOffice Visit Colorectal Surgery [address] [address] Elsy Rousseau DO Crohn's disease of both small and large intestine with other complication (HCC); Abdominal bloating; Encounter for adjustment and management of vascular access device; Short bowel syndrome with colon in lncbyfoswz51/19/2025Telephone Gastroenterology [address] [address] Motorcycle Police Officer, Hpn Lmkpavs7705/23/2025 Patient [facility] [address] [address] Provider, Ccf Dr. Mike xckmbmwetxd31/15/2025 Patient [facility] [address] [address] Provider, [facility] APPOINTMENT TCPEUEFR18/11/2025[facility] [address] [place] [address] Motorcycle Police Officer, Hpn Results (Routine labs stable-discuss weaning)05/10/2025Specialty Pharmacy [facility] [address] [place] [address] Nidia Maya, Tim SPP Inflammatory Conditions - Medication Refill (Skyrizi)05/07/2025 2:30 PM EST [facility] Vascular Medicine [address] [facility] [place] [address] Mairam Kenny PA-C History of DVT (deep vein thrombosis) (Primary Dx); Anticoagulation management iwiejusrs79/03/2025[facility] Gastroenterology [address] [address] Motorcycle Police Officer, Hpn 05/07/2025[facility] [address] [place] [address] Mariam Kenny PA-C 05/03/2025[facility] G[facility]ology [address] [address] Motorcycle Police Officer, Hpn Patient Nbtlvi1105/01/2025 1:30 PM EDTOffice Visit Gastroenterology [address] [address] Berna Mike DO On total parenteral nutrition (TPN) (Primary Dx); Therapeutic drug monitoring; Encounter for nutritional counseling; 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; Crohn's disease of both small and large intestine with other complication (HCC); Central venous catheter in place, permanent; Presence of permanent central venous dymfpngg89/23/2025 1:30 [facility] [address] [place] [phone] Abebe Baca MD, PhD Bloating (Primary Dx); Straining during bowel olxfxywpz21/23/2545Osbicp85/10/2025[facility] Gastro[facility]ology [address] [address] Motorcycle Police Officer, Hpn Axgvbee2404/11/2025 Patient Msg Gastroenterology [address] [address] Provider, [facility] medication follow up04/11/2025[facility] [address] [address] Motorcycle Police Officer, Hpn Patient Hnfbif0204/10/2025[facility] [address] [address] Motorcycle Police Officer, Hpn Patient Update (Outpatient labs vs [facility])04/03/2025[facility] [address] [address] Berna Mike DO Docket Specialist - Other (needs home care nursing)04/02/2025Results Follow-Up Gastroenterology [address] [address] Obdulia Patrick APRN.CAREER SERVICES DIRECTOR 03/30/2025 1:13 PM EDT - 03/30/2025 11:59 PM EDTHospital Encounter Radiology [address] [place] [phone] Altered bowel habits [R19.4] Discharge Disposition: Home03/30/2025 12:00 PM EDTOffice Visit Gastroenterology [address] [place] [phone] Grace Monterroso, margarita Crohn's disease with complication, unspecified gastrointestinal tract location (HCC) (Primary Dx)03/29/2025 8:[address] [facility] Colorectal Surgery [address] [phone] Patricia Dubose APRN.CNP Aftercare following surgery (Primary Dx); Nerve root and plexus hqivrrew03/22/2025Results Follow-Up Gastroenterology [address] [place] [phone] Obdulia Patrick APRN.CAREER SERVICES DIRECTOR 03/26/2025Results Follow-Up Gastroenterology [address] [place] [phone] Abebe Baca MD, PhD 03/22/2025 3:00 PM [facility] Hematology/Oncology [address] [place] [address] [place] [address] Disorders of fluid, electrolyte, and acid-base balance; On total parenteral nutrition (TPN); Leukocytosis, unspecified type; Iron deficiency anemia, unspecified iron deficiency anemia type; Crohn's disease with complication, unspecified gastrointestinal tract location (HCC); Other lzikpey3103/22/2025 10:[address] [facility] Gastroenterology [address] [place] [phone] Obdulia Patrick APRN.CNP Crohn's disease with complication, unspecified gastrointestinal tract location (HCC) (Primary Dx)03/22/2025 Patient Msg Gastroenterology [address] [address] Provider, [facility] [place]: New Appointment Vprqhrufxhrm53/18/2025 Patient Msg [facility] [address] [place], [place] [phone] Nidia Maya RPh New Medication Action Wzlncjoa36/18/2025Telephone Gastroenterology [address] [address] Obdulia Patrick APRN.CAREER SERVICES DIRECTOR Appointmentfrom Last 3 Months Social History Tobacco UseTypesPacks/DayYears UsedDateSmoking Tobacco: NeverPassive Smoke Exposure: CurrentSmokeless Tobacco: Never Tobacco Cessation:Counseling Given: Not Answered Passive Exposure Comments: smokes out side per pt 02/14/2025lcohol Use Standard Drinks/WeekCommentsNot Currently0 (1 standard drink = 0.6 oz pure alcohol)PHQ-2AnswerDate RecordedPHQ-2 rtgkd10407/28/2024Housing Stability Vital SignAnswerDate RecordedIn the last 12 months, was there a time when you were not able to pay the mortgage or rent on time?No09/03/2024Number of Times Moved in the Last YearNot on file09/03/2024t any time in the past 12 months, were you homeless or living in a skilled nursing (including now)?No09/03/2024Hunger Vital Sign AnswerDate RecordedWithin the [...] Moved in the Last YearNot on file 02/16/2025t any time in the past 12 months, were you homeless or living in a skilled nursing (including now)?No02/16/2025HC UtilitiesAnswerDate RecordedIn the past 12 months has the electric, gas, oil, or water company threatened to shut off services in your home?No02/16/2025rea Deprivation IndexAnswerDate Recorded National Score (1-100), lower number is lower pjwb177807/31/2024State Score (1- 10), lower number is lower zakp72307/31/2024Data from: https://www.neighborhoodatlas.[facility].edu/. Last address used for ezz[address]07/31/2024CommentsNoSex and Gender Information ValueDate RecordedSex Assigned at BirthNot on fileLegal SeqPjkzzi60/18/2025 1:54 PM ESTGender IdentityNot on fileSexual OrientationNot on file Last Filed Vital Signs Vital SignReadingTime TakenCommentsBlood Pjedhsxv562/6705/01/2025 1:49 PM EDT Piyzn049505/01/2025 1:49 PM ZYNYxuftglgxkb34.8 ??C (98.2 ??F)05/01/2025 1:49 PM EDTRespiratory Tkxq0650 1:30 PM EDTOxygen Ufvxxffgbc33%05/01/2025 1:49 PM EDTInhaled Oxygen Concentration--Zaqaez34.9 kg (143 lb)05/23/2025 2:45 PM EST Nbvjvq011.9 cm (5' 6.5 )05/23/2025 2:45 PM ESTBody Mass Index22.7405/23/2025 2:45 PM EST Plan of Treatment DateTypeDepartmentCare Team (Latest Contact Info)Vbstgqjhhch28/22/2025 11:00 AM ESTDistance Health Psychology [address] [place] [address] Bubba Johnson PSYD [address] [place] [address] follow up 7 sessions 7 11:00 AM ESTSpecialty Pharmacy [facility] [address] [place] [address] Pharmacist, Specialtygroup [address] [facility] [place] [address] tualayna Rodrick (58D) - PAx 03/12/26- [place] 1:15 PM [facility] Vascular Medicine [address] [place] [address] Mariam Kenny PA-C [address] [place] [address] DX: DVT08/09/2025 10:30 AM ESTAppointment Gastroenterology [address] [place] [address] Abebe Baca MD, PhD [address] [place], [place] [phone] Crohn's disease with complication, unspecified gastrointestinal tract location (...08/17/2025 2:00 PM [facility] Psychology [address] [place] [address] Bubba Johnsno PSYD [address] [place], [place] [phone] follow up 7 sessions 5 of 7Health MaintenanceDue DateLast DoneCommentsAnxiety Cxmrgeiuv27/11/2006Depression Wrejqygab39/11/2006HIV Yvluwcrdl00/11/2006 Hepatitis B Vaccine (1 of 3 - 19+ 3-dose series)09/12/2006Cervical Cancer Dwmvvfohf19/11/2009HPV Vaccine (1 - 3-dose SCDM series)09/12/2014DTaP,Tdap,Td Vaccine (2 - Td or Tdap)Covid-19 Vaccine ( - season)2025Influenza Vaccine (#1)Hepatitis C Screening Ynxumfflp35/08/2022 Goals GoalPatient Goal TypeAssociated ProblemsRecent ProgressPatient-Stated?Author Blood Pressure < 130/80 Blood Jqeycaqp613/67(05/01/2025 1:49 PM EDT)Mariam Cheney PA-C Home Parenteral Nutrition Goal Template Care PlanHome Parenteral Nutrition Problem TemplateAlexandrea Vasquez Procedures Procedure NamePriorityDate/TimeAssociated DiagnosisCommentsTPN FORMULA FLOW BNKKRDIYQZLVZgyygty79/03/2025 12:13 PM EST TPN FORMULA FLOW PJFJNPRMFUSZYzottns01/19/2025 1:25 PM EST TPN FORMULA FLOW HXVTTAEDTFBBXilgsaj24/11/2025 9:37 AM EST TPN FORMULA FLOW ZDQPSBZSPMVHDzeoyfz89/03/2025 4:07 PM EST TPN FORMULA FLOW IEHHNAHRYCSNTeyabxa10/30/2025 9:22 AM EDT TPN FORMULA FLOW DMKLZJQUBIKLZrcmwfh01/10/2025 2:13 PM EDT XR ABDOMEN 3V KUB W/YSQOGYZYHvzagbu32/26/2025 1:51 PM EDT Altered bowel habits EXTRA ZANE-MARCIO CONTAINER CDCFDCGBNLWQtlbtqc35/23/2025 9:33 AM EDT Crohn's disease with complication, unspecified gastrointestinal tract location (HCC) EXTRA ECOFIX CONTAINER EPEVZGEPADVDpkojzd81/23/2025 9:33 AM EDT Crohn's disease with complication, unspecified gastrointestinal tract location (HCC) LAB EXTRA PSOMORpcowed52/23/2025 9:33 AM EDT Crohn's disease with complication, unspecified gastrointestinal tract location (HCC) CALPROTECTIN,ZGNXXRdmcabv08/23/2025 9:33 AM EDT Crohn's disease with complication, unspecified gastrointestinal tract location (HCC) PT ED PATIENT ZCLGZRAVYGM57/21/2025 TPN FORMULA FLOW FCMLYLUIKXLQIrgiqyq35/19/2025 10:40 AM EDT CBC + LVMWVhglctw87/18/2025 2:01 PM EDT Crohn's disease with complication, unspecified gastrointestinal tract location (HCC) C-REACTIVE PROTEIN (CRP)Xcisscl5103/22/2025 2:01 PM EDT Crohn's disease with complication, unspecified gastrointestinal tract location (HCC) TSH JMTOccrlqg07/18/2025 2:01 PM EDT Iron deficiency anemia, unspecified iron deficiency anemia type Crohn's disease with complication, unspecified gastrointestinal tract location (HCC) Other fatigue IRON + UJEIEsrliig05/18/2025 2:01 PM EDT Iron deficiency anemia, unspecified iron deficiency anemia type PHOSPHORUS DSZCWDRKFVnxkuyo90/18/2025 2:01 PM EDT Disorders of fluid, electrolyte, and acid-base balance On total parenteral nutrition (TPN) MAGNESIUM JLQTzszzdd89/18/2025 2:01 PM EDT Disorders of fluid, electrolyte, and acid-base balance On total parenteral nutrition (TPN) COMPREHENSIVE METABOLIC CQZZTNjwrjqe04/18/2025 2:01 PM EDT Disorders of fluid, electrolyte, and acid-base balance On total parenteral nutrition (TPN) from Last 3 Months Results * TPN FORMULA FLOW PRESCRIPTION (06/06/2025 12:13 PM EST) Only the most recent of7 resultswithin the time period is included. Specimen (Source)Anatomical Location / LateralityCollection Method / Volume Collection TimeReceived Time06/06/2025 12:13 PM EST Narrative OTHER LAB - 06/06/2025 12:13 PM EST PN/EN Formula Flow [facility] #: [id number] Patient Name: YESICA HUMPHREY Patient Date of : 1985 Physician: BERNA MIKE MD Clinician: Jonnie Fall Date of Prescription: 06/06/2025 ?Amino Acids Solution: 15% amino acids 15% ? Amino Acids (g): 115 ?Amino Acid %: 3.6 ?Amino Acids (KCal/Day): 263 (DOWN) ? Amino Acids (g/L): 35.9 ?Dextrose (g): 230 ? Dextrose (KCal/Day): 447 (DOWN) ?Dextrose (g/L): 72 ? Fat Emulsion Solution: Smoflipid 20% ?Fat Percentage (%): 20 ?Fat Emul. Concentrate (ml): 320 ? Fat Emulsion (KCal/Day): 366 (DOWN) ?Fat Emulsion (g/L): 20 ?2 in 1 days/wk: 0 ?3 in 1 days/wk: 4 (DOWN) ?Total KCal w/Fat/Day: 1076 (DOWN) ? KCal/k.2 (DOWN) ?Grams Protein/k.8 ?Water for Injection (ml): 1620 [...] (mcg): 0 ?PN Infus Days (per wk): 4: August Klein Thu, Fri (DOWN) ?PN Infus Hrs (per day): 12 ?Taper Up (hrs): 1 ?Taper Down (hrs): 1 ? PN Refill: ? PN Start Date: 06/06/2025 (*) ? PN End Date: 09/04/2025 (*) ?IVF Solution: 0.45NS ? IVF Volume (ml): 1000 ? IVF Infus Days/wk: 3 (UP) ? Other Desc. 1: 0.45% Sodium Chloride ?Other Qty./Day 1: 1 ?Other Unit 1: liter ? Other Days/wk 1: prn for hydration Ethanol Lock: Yes Homecare Pharmacy Date: ??08/31/2024 Name: ??[facility], [place], [place] [[facility] Phone: ??[phone] Fax: ??[phone] [facility] Comments: TPN Physician Orders: ?? Manganese (Whole Blood): ?? due date: 06/18/25 None] PO4: ?? due date: 06/18/25 None] Mg: ?? due date: 06/18/25 None] CBC: ?? due date: 06/18/25 None] CMP: ?? due date: 06/18/25 None] CRP: ?? [...] change from last formula flow Created By: Jonnie Fall Creation Date: 06/06/2025 12:10PM Reported Date: 06/06/2025 12:13PM Authorizing ProviderResult TypeResult StatusCcf ProviderALLOGENFinal Result Performing OrganizationAddressCity/State/ZIP CodePhone Number OTHER LAB * XR ABDOMEN 3V KUB W/OBLIQUES (03/30/2025 1:51 PM EDT)Anatomical Region LateralityModalityAbdomenOtherSpecimen (Source)Anatomical Location / LateralityCollection Method / VolumeCollection TimeReceived Time03/30/2025 1:51 PM EDT Impressions 03/30/2025 3:05 PM EDT IMPRESSION: No dilated loops of bowel. No significant stool burden. Chinchilla Farmer: PSCB ?? Transcribe Date/Time: Mar 30 2025 ??2:55P [...] no acute osseous abnormalities. Procedure Note Provider, [facility] [place] - 03/30/2025 * * *Final Report* * [...] loops of bowel. No significant stool burden. Chinchilla Farmer: EPIFANIO Transcribe Date/Time: Mar 30 2025 2:55P Dictated by : BRIA VANN MD This examination was interpreted and the report reviewed and electronically signed by: BRIA VANN MD on Mar 30 2025 3:03PM EST Authorizing ProviderResult TypeResult StatusJesofie Patrick CUFFING MACHINE OPERATOR.CNPRAD-PAMA Final Result * (ABNORMAL) CALPROTECTIN,FECAL (03/27/2025 9:33 AM EDT)ComponentValueRef Range Test MethodAnalysis TimePerformed AtPathologist SignatureCALPROTECTIN, FECAL OVEHJKZGAGBX46.6(H)<50 ug/g003/27/2025 10:34 PM EDTCOHIOHEALTH [facility] LABCALPROTECTIN, FECAL INTERPBorderline elevated. Re-evaluation in 4-6 weeks is recommended if clinically indicated.(A)Frkigy4503/27/2025 10:34 PM EDT [facility] LABComment: Interpretation: <50.0 ug/g: Normal 50.0 ug/g - 120.0 ug/g: Borderline elevated. Re-evaluation in 4-6 weeks is recommended if clinically indicated. >120.0 ug/g: Elevated Specimen (Source)Anatomical Location / LateralityCollection Method / Volume Collection TimeReceived TimeStoolSTOOL SPECIMEN / UnknownNon Blood / Unknown 03/27/2025 9:33 AM EDT03/27/2025 12:03 PM EDT Narrative Authorizing ProviderResult TypeResult StatusObdulia Patrick CUFFING MACHINE OPERATOR.CNPLABORATORY Final ResultPerforming OrganizationAddressCity/State/ZIP CodePhone Number [facility] [place] [address], * EXTRA ZANE-MARCIO CONTAINER PERFORMABLE (03/27/2025 9:33 AM EDT)Specimen (Source)Anatomical Location / LateralityCollection Method / VolumeCollection TimeReceived TimeStoolSTOOL SPECIMEN / Ufuxlfg5603/27/2025 9:33 AM EDT03/27/2025 4:05 PM EDT Narrative Authorizing ProviderResult TypeResult StatusObdulia Patrick CUFFING MACHINE OPERATOR.CNPLABORATORY Final ResultPerforming OrganizationAddressCity/State/ZIP CodePhone Number [facility] [place] [address], * EXTRA ECOFIX CONTAINER PERFORMABLE (03/27/2025 9:33 AM EDT)Specimen (Source) Anatomical Location / LateralityCollection Method / VolumeCollection Time Received TimeStoolSTOOL SPECIMEN / Cvyscdq7603/27/2025 9:33 AM EDT03/27/2025 4:05 PM EDT Narrative Authorizing ProviderResult TypeResult StatusObdulia Patrick CUFFING MACHINE OPERATOR.CNPLABORATORY Final ResultPerforming OrganizationAddressCity/State/ZIP CodePhone Number [facility] [place] [address], * PT ED PATIENT INFORMATION (03/25/2025)Specimen (Source)Anatomical Location / LateralityCollection Method / VolumeCollection TimeReceived Time03/25/2025 Narrative [facility] - 05/10/2025 Provider PROVIDER your patient YESICA HUMPHREY has not started their [place] program, time has . [place] program: PATIENT SAFETY INSTRUCTIONS FOR HEALTHCARE SETTINGS Authorizing ProviderResult TypeResult StatusCcf ProviderEMMIFinal Result Performing OrganizationAddressCity/State/ZIP CodePhone Number [facility] * MAGNESIUM (03/22/2025 2:01 PM EDT)ComponentValueRef RangeTest MethodAnalysis TimePerformed AtPathologist SignatureMagnesium1.81.7 - 2.3 mg/dL03/22/2025 2:48 PM EDTNORTHCOAST HILLS & D[facility] LABSpecimen (Source)Anatomical Location / LateralityCollection Method / VolumeCollection TimeReceived Time BloodBLOOD SPECIMEN / UnknownCentral Line / Sfnbtbw6403/22/2025 2:01 PM EDT 03/22/2025 2:07 PM EDT Narrative Authorizing ProviderResult TypeResult StatusKunzah Rashid DOLABORATORYFinal Result Performing OrganizationAddressCity/State/ZIP CodePhone Number [facility] [address] [place] [address] * THYROID STIMULATING HORMONE (03/22/2025 2:01 PM EDT)ComponentValueRef Range Test MethodAnalysis TimePerformed AtPathologist SignatureTSH1.4900.270 - 4.200 mIU/L03/23/2025 3:48 PM EDTCOHIOHEALTH [facility]ER[facility] LABComment: If the patient is , TSH reference range varies by gestational period: First Trimester (weeks 9-12): 0.180-2.990 mIU/L Second Trimester: 0.110-3.980 mIU/L Third Trimester: 0.480-4.710 mIU/L Ceferino Nova et al. A Practical Approach for the Verifications and Determination of Site- and Trimester-Specific Reference Intervals for Thyroid Function tests in . Thyroid, 2019:29:3:412-420.Wilver Acevedo, et al. 2017 Guidelines of the [place] Thyroid Association for the Diagnosis and Management of Thyroid Disease during and the . Thyroid, 2017:27:3:315-389. Specimen (Source)Anatomical Location / LateralityCollection Method / Volume Collection TimeReceived TimeBloodBLOOD SPECIMEN / UnknownCentral Line / Unknown 03/22/2025 2:01 PM EDT03/22/2025 2:07 PM EDT Narrative Authorizing ProviderResult TypeResult StatusAbebe Castaneda MD, PhDLABORATORY Final ResultPerforming OrganizationAddressCity/State/ZIP CodePhone Number [facility] [address] [place] [address], * PHOSPHORUS INORGANIC (03/22/2025 2:01 PM EDT)ComponentValueRef RangeTest MethodAnalysis TimePerformed AtPathologist SignaturePhosphorus3.82.7 - 4.8 mg/dL03/22/2025 2:48 PM EDTNORTHCOAST HILLS & DAL[facility] LABSpecimen (Source)Anatomical Location / LateralityCollection Method / VolumeCollection TimeReceived TimeBloodBLOOD SPECIMEN / UnknownCentral Line / Umtaywc7703/22/2025 2:01 PM EDT03/22/2025 2:07 PM EDT Narrative Authorizing ProviderResult TypeResult StatusKunzamargarita Rashid DOLABORATORYFinal Result Performing OrganizationAddressCity/State/ZIP CodePhone Number [facility] [address] [place] [address] * (ABNORMAL) IRON AND TIBC (03/22/2025 2:01 PM EDT)ComponentValueRef RangeTest MethodAnalysis TimePerformed AtPathologist UgzcvyqmbQosw9854 - 186 ug/dL 03/23/2025 3:26 PM EDTCOHIOHE[facility] BHDGZBL988(H)232 - 386 ug/dL03/23/2025 3:26 PM EDTCOHIOHEALTH [facility] LABTransferrin Kdhvsyyaln50.7(L)15.0 - 57.0 %03/23/2025 3:26 PM EDTCOHIOHEALTH [facility] LABSpecimen (Source)Anatomical Location / LateralityCollection Method / VolumeCollection TimeReceived TimeBloodBLOOD SPECIMEN / UnknownCentral Line / Wvetnew3503/22/2025 2:01 PM EDT03/22/2025 2:07 PM EDT Narrative Authorizing ProviderResult TypeResult StatusAbebe Castaneda MD, PhDLABORATORY Final ResultPerforming OrganizationAddressCity/State/ZIP CodePhone Number [facility] [address] [place] [address], [place] * (ABNORMAL) COMPREHENSIVE METABOLIC PANEL (03/22/2025 2:01 PM EDT)Component ValueRef RangeTest MethodAnalysis TimePerformed AtPathologist Signature Protein, Total7.16.3 - 8.0 g/dL03/22/2025 2:49 PM EDTNORTHCST HILLS & DALES [facility] LABAlbumin4.23.9 - 4.9 g/dL03/22/2025 2:49 PM EDTNORTSSM HE[facility]ARD[facility] H[facility]ITALST [facility] LABCalcium, Total9.38.5 - 10.2 mg/dL03/22/2025 2:49 PM EDTNORTSSM HEALTH [facility]ARD[facility] HOSPITALST [facility] LABBilirubin, Total0.40.2 - 1.3 mg/dL 03/22/2025 2:49 PM EDTNORTHARBOR BEACH COMMUN[facility] LABAlkaline Beknyucayxv7427 - 123 U/L03/22/2025 2:49 PM EDTNOJACKSON [facility] WLMJLD9998 - 35 U/L03/22/2025 2:49 PM EDTNORTHARBOR BEACH COMMUNITY HOSPITAL TVOFQY983 - 38 U/L03/22/2025 2:49 PM EDTNOJACKSON GENERAL [facility]OSPITAL ZXXEvmvdqv944(H)74 - 99 mg/dL03/22/2025 2:49 PM EDTNORTHARBOR BEACH COMMUNITY HOSPITAL LABComment: The [place] Diabetes Association (ADA) provides guidance for cutoff [...] Standards of Medical Care in Diabetes 2016, [place] Diabetes Association. Diabetes Care. 2016.39(Suppl 1). JKW862 - 21 mg/dL03/22/2025 2:49 PM EDTSISTERSVILLE [facility] LAB Creatinine0.640.58 - 0.96 mg/dL03/22/2025 2:49 PM EDV[facility] AYPLvyjhd745698 - 144 mmol/L03/22/2025 2:49 PM EDVETERANS [facility] LABPotassium4.03.7 - 5.1 mmol/L03/22/2025 2:49 PM EDTSISTERSVILLE [facility] WATPhfmszsu2167 - 107 mmol/L03/22/2025 2:49 PM EDT [facility] CQBLG53145 - 30 mmol/L03/22/2025 2:49 PM EDT [facility] LABAnion Dzv381 - 15 mmol/L03/22/2025 2:49 PM [facility] LABEstimated Glomerular Filtration Txih882 >=60 mL/min/1.73m 03/22/2025 2:49 PM [facility] LABComment:Estimated Glomerular Filtration Rate (eGFR) is [...] TimeReceived TimeBloodBLOOD SPECIMEN / UnknownCentral Line / Qgrtcmm3303/22/2025 2:01 PM EDT03/22/2025 2:07 PM EDT Narrative Authorizing ProviderResult TypeResult StatusKunza Rashid DOLABORATORYFinal Result Performing OrganizationAddressCity/State/ZIP CodePhone Number [facility] [address] [place] [address] * (ABNORMAL) COMPLETE BLOOD COUNT AND DIFFERENTIAL (03/22/2025 2:01 PM EDT) ComponentValueRef RangeTest MethodAnalysis TimePerformed AtPathologist SignatureWBC6.093.70 - 11.00 k/uL03/22/2025 2:10 PM EDTNORTHARBOR BEACH COMMUNITY H[facility]PITAL LABRBC3.89(L)3.90 - 5.20 m/uL03/22/2025 2:10 PM EDTNOJACKSON GENERAL [facility] VNRCiyzsexfxz73.3(L)11.5 - 15.5 g/dL03/22/2025 2:10 PM EDTNORTHARBOR BEACH COMMUN[facility] TUGCuzjqefnps07.1(L)36.0 - 46.0 % 03/22/2025 2:10 PM EDTNORTHARBOR BEACH COMMUN[facility] CWXUQW57.780.0 - 100.0 fL03/22/2025 2:10 PM EDTSISTERSVILLE [facility] LJPCLI03.026.0 - 34.0 pg03/22/2025 2:10 PM EDTSISTERSVILLE [facility] TJUVRIW67.130.5 - 36.0 g/dL03/22/2025 2:10 PM EDTNOJACKSON GENERAL [facility]PITAL LABRDW-CV 13.011.5 - 15.0 %03/22/2025 2:10 PM EDVETERANS [facility] LAB Platelet Xpuxu562136 - 400 k/uL03/22/2025 2:10 PM EDVETER[facility]IRS [facility] DZQHRJ37.29.0 - 12.7 fL03/22/2025 2:10 PM EDTNOJACKSON GENERAL [facility]OSPITAL LABNeutrophils %69.7%03/22/2025 2:10 PM EDTNOJACKSON GENERAL HOSPITAL LABAbs Neut4.251.45 - 7.50 k/uL03/22/2025 2:10 PM EDTNOJACKSON GENERAL [facility] LABLymphocytes %21.7%03/22/2025 2:10 PM EDVETER[facility]IRS [facility] LABAbs Lymph1.321.00 - 4.00 k/uL03/22/2025 2:10 PM EDT [facility] LABMonocytes %4.9%03/22/2025 2:10 PM EDT [facility] LABAbs Mono0.30<0.87 k/uL03/22/2025 2:10 PM EDTSISTERSVILLE GENERAL [facility]PITAL LABEosinophils %3.0%03/22/2025 2:10 PM EDTNOJACKSON [facility] LABAbs Eosin0.18<0.46 k/03/22/2025 2:10 PM EDTNORTHARBOR BEACH COMMUNITY [facility] LABBasophils %0.5%03/22/2025 2:10 PM EDTNOJACKSON GENER[facility] LABAbs Baso0.03<0.11 k/03/22/2025 2:10 PM EDTSISTERSVILLE [facility] LABImmature Granulocytes %0.2% 03/22/2025 2:10 PM EDTSISTERSVILLE GENERAL [facility]PITAL LABAbs Immature Gran <0.03<0.10 k/03/22/2025 2:10 PM EDTSISTERSVILLE GENERAL HOSPITAL LABNRBC 0.0/100 WBC03/22/2025 2:10 PM EDVETER[facility]IRS [facility] LABAbsolute nRBC<0.01<0.01 k/03/22/2025 2:10 PM EDVETERANS [facility] LAB Diff DwphSkwu51/18/2025 2:10 PM EDVETERANS [facility] LAB Specimen (Source)Anatomical Location / LateralityCollection Method / Volume Collection TimeReceived TimeBloodBLOOD SPECIMEN / UnknownCentral Line / Yyhgjzq3203/22/2025 2:01 PM EDT03/22/2025 2:07 PM EDT Narrative Authorizing ProviderResult TypeResult StatusJesofie Patrick CUFFING MACHINE OPERATOR.CNPLABORATORY Final ResultPerforming OrganizationAddressCity/State/ZIP CodePhone Number [facility] [address] [place] [address] * C-REACTIVE PROTEIN (03/22/2025 2:01 PM EDT)ComponentValueRef RangeTest Method Analysis TimePerformed AtPathologist SignatureCRP0.4<0.9 mg/dL03/23/2025 3:45 PM EDTCOHIOHEALTH [facility] LABSpecimen (Source)Anatomical Location / LateralityCollection Method / VolumeCollection TimeReceived TimeBloodBLOOD SPECIMEN / UnknownCentral Line / Pwfvaxd8503/22/2025 2:01 PM EDT03/22/2025 2:07 PM EDT Narrative Authorizing ProviderResult TypeResult StatusJesofie Patrick CUFFING MACHINE OPERATOR.CNPLABORATORY Final ResultPerforming OrganizationAddressCity/State/ZIP CodePhone Number [facility] [address] [facility] [address] [place] [address], from Last 3 Months Additional Health Concerns Active ProblemsNoted DateDiagnosed DateHome Parenteral Nutrition Problem Zzpvygef25/17/2025 Insurance * Guarantor: Yesica HumphreyAccount TypeRelation to PatientDate of BirthPhone Billing AddressPersonal/OkedzoNrqg98/11/1986 [facility] [place] [address] Advance Directives * Full Code (Latest Code Status on File) Date ActivatedDate InactivatedComments09/02/2024 3:27 AM09/06/2024 5:41 PMQuestion AnswerCommentsFull Code Order Discussed With:* Patient * Full Code Date ActivatedDate InactivatedComments08/17/2024 9:03 AM08/30/2024 7:00 PMQuestion AnswerCommentsFull Code Order Discussed With:* Patient Care Teams Team MemberRelationshipSpecialtyStart DateEnd Date Berna Mike DO [address] [place] [address] Home Parenteral Nutrition ProviderGastroenterology08/08/24 Community Resourse Community Resource02/16/25
--- OUTSIDE RECORDS SUMMARY | 2025-06-20 11:02 | XMS_ITS | Encounter Summary ---
Author Organization [facility] Address [address] [place] [address] Care Team Providers Care Brokerage Branch Manager Name Role Phone Berna Mike DO Unavailable Source Comments In the event this information is protected by the Federal Confidentiality of Alcohol and Drug AbusePatient Records regulations: The Federal rules restrict any use of the information to criminally investigate or prosecute any alcohol or drug abuse patient.[facility] Reason for Visit * ReasonCommentsOrders Encounter Details DateTypeDepartmentCare Team (Latest Contact Info)Uzxkgvyblpg94/02/2025Telephone Gastroenterology [address] [phone] Abebe Baca MD, PhD [address] [place] [address] Orders Social History Tobacco UseTypesPacks/DayYears UsedDateSmoking Tobacco: NeverPassive Smoke Exposure: CurrentSmokeless Tobacco: Never Passive Exposure Comments:Hu morganand smokes out side per pt 02/14/2025 Alcohol UseStandard Drinks/WeekCommentsNot Currently0 (1 standard drink = 0.6 oz pure alcohol)PHQ-2AnswerDate RecordedPHQ-2 oitfw48807/28/2024Housing Stability Vital SignAnswerDate RecordedIn the last 12 [...] homeless or living in a custodial (including now)?02/16/2025HC UtilitiesAnswerDate Recorded In the past 12 months has the [employer], gas, oil, or water [employer] threatened to shut off services in your home?02/16/2025rea Deprivation IndexAnswerDate RecordedNational Score (1-100), lower number is lower bheg033307/31/2024State Score (1-10), lower number is lower oohf00307/31/2024Data from: https://www.neighborhoodatlas.medicine.[facility].edu/. Last address used for bimhmj[address]xlz[address]07/31/2024CommentsNoSex and Gender Information ValueDate RecordedSex Assigned at BirthNot on fileLegal JmiWsqibr33/18/2025 1:54 PM ESTGender IdentityNot on fileSexual OrientationNot on filedocumented as of this encounter Functional Status * Are you deaf or do you have serious difficulty hearing?AnswerDate of MlnnagupqxWeeszzXl19/26/2025 2:38 PM Hanane Benitez RN * Are you blind or do you have serious difficulty seeing, even when wearing glasses?AnswerDate of MhkkynatwyZnqltkFl96/26/2025 2:38 PM Hanane Benitez RN * Do you have serious difficulty walking or climbing stairs?AnswerDate of WpjugpgnqeFgziejFa71/26/2025 2:38 PM Hanane Benitez RN * Do you have difficulty dressing or bathing?AnswerDate of AssessmentAuthorNo 08/30/2024 2:38 PM Hanane Benitez RN * Because of a physical, mental, or emotional condition, do you have difficulty doing errands alone such as visiting a doctor's office or shopping?AnswerDate of IxbyivqlzbWkzxfnNl74/26/2025 2:38 PM Hanane Benitez RN documented as of this encounter Mental Status * Because of a physical, mental, or emotional condition, do you have serious difficulty concentrating, remembering, or making decisions?AnswerEntry Date TbtrhiJz13/26/2025 2:38 PM Hanane Benitez RN documented in this encounter Miscellaneous Notes * Telephone Encounter - Gloria Lees LPN - 06/05/2025 9:45 AM EST Images from the original note were not included. Abebe Baca MD, PhD Gloria Lees LPN Hi Gloria, I just ordered a breath test for this patient for SIBO rule out as discussed with her CORS providerDr. Rousseau. Can you assist with scheduling a follow up with Tia or me after? Thank you, KAY Called patient, unable to speak with patient, was advised she was in the shower by her emergency contact Arthur. Advised him to inform patient a [employer] message will be sent to her as replacement forthe call. Gloria Lees LPN documented in this encounter Plan of Treatment DateTypeDepartmentCare Team (Latest Contact Info)Fwbaxumzdpg78/22/2025 11:00 AM ESTDistance Health Psychology [address] [place] [address] Bubba Johnson PSYD [address] [place] [address] follow up 7 sessions 7 of 11:00 AM ESTSpecialty Pharmacy [facility] [facility] [place] [address] Pharmacist, Specialtygroup [address] [place] [phone] rufino Mensah (58D) - Rita 03/12/26- [place] 1[facility] [address] [place] [address] Mariam Kenny PA-C [address] [place] [address] DX: 08/09/2025 10:30 AM ESTAppointment Gastroenterology [address] [place] [phone] Abebe Baca MD, PhD [address] [place] [address] Crohn's disease with complication, unspecified gastrointestinal tract location (...08/17/2025 2:00 PM ESTDistance [facility] [address] [place] [address] Bubba Johnson PSYD [address] [place] [address] follow up 7 sessions 5 of 7documented as of this encounter Goals GoalPatient Goal TypeAssociated ProblemsRecent ProgressPatient-Stated?Author Blood Pressure < 130/80 Blood Dcjvdmpw362/67(05/01/2025 1:49 PM EDT)Mariam Cheney PA-Cdocumented as of this encounter Visit Diagnoses Not on filedocumented in this encounter Care Teams Team MemberRelationshipSpecialtyStart DateEnd Date Berna Mike DO [address] [place] [address] Home Parenteral Nutrition ProviderGastroenterology08/08/24 Community Resourse Community Resource02/16/25documented as of this encounter
--- OUTSIDE RECORDS SUMMARY | 2025-06-20 11:03 | XMS_ITS | Encounter Summary ---
Author Organization [facility] Address [address] [place] [address] Care Team Providers Care Package Car Driver Name Role Phone Berna Mike DO Unavailable Source Comments In the event this information is protected by the Federal Confidentiality of Alcohol and Drug AbusePatient Records regulations: The Federal rules restrict any use of the information to criminally investigate or prosecute any alcohol or drug abuse patient.[facility] Encounter Details DateTypeDepartmentCare Team (Latest Contact Info)Zcgeiwsfgxz20/17/2025 Patient Msg HL Provider Adult [address] [place] [address] Provider, [facility] Home Parenteral Nutrition Pharmacist Aide Enrollment Social History Tobacco UseTypesPacks/DayYears UsedDateSmoking Tobacco: NeverPassive Smoke Exposure: CurrentSmokeless Tobacco: Never Passive Exposure Comments:Mitchell pyle smokes out side per pt 02/14/2025 Alcohol UseStandard Drinks/WeekCommentsNot Currently0 (1 standard drink = 0.6 oz pure alcohol)PHQ-2AnswerDate RecordedPHQ-2 ymbiy77607/28/2024Housing Stability Vital SignAnswerDate RecordedIn the last 12 [...] RecordedNational Score (1-100), lower number is lower jpyv699207/31/2024State Score (1-10), lower number is lower lrzj79607/31/2024Data from: https://www.neighborhoodatlas.medicine.[facility].edu/. Last address used for [address] 07/31/2024CommentsNoSex and Gender Information ValueDate RecordedSex Assigned at BirthNot on fileLegal RnnYmccmj85/18/2025 1:54 PM ESTGender IdentityNot on fileSexual OrientationNot on filedocumented as of this encounter Functional Status * Are you deaf or do you have serious difficulty hearing?AnswerDate of KmunskcapzVrcipaVb13/26/2025 2:38 PM Hanane Benitez RN * Are you blind or do you have serious difficulty seeing, even when wearing glasses?AnswerDate of VqopcggusqGpaynvAu19/26/2025 2:38 PM Hanane Benitez RN * Do you have serious difficulty walking or climbing stairs?AnswerDate of KbxwkommljVdydooGs51/26/2025 2:38 PM Hanane Benitez RN * Do you have difficulty dressing or bathing?AnswerDate of AssessmentAuthorNo 08/30/2024 2:38 PM Hanane Benitez RN * Because of a physical, mental, or emotional condition, do you have difficulty doing errands alone such as visiting a doctor's office or shopping?AnswerDate of WdhtmqdboyWcrevsZh20/26/2025 2:38 PM Hanane Benitez RN documented as of this encounter Mental Status * Because of a physical, mental, or emotional condition, do you have serious difficulty concentrating, remembering, or making decisions?AnswerEntry Date OlrcmvUg93/26/2025 2:38 PM Hanane Benitez RN documented in this encounter Plan of Treatment DateTypeDepartmentCare Team (Latest Contact Info)Egitlwpvzkl78/22/2025 11:00 AM [facility] [address] [place] [address] Bubba Johnson PSYD [address] [place] [address] follow up 7 sessions 7 of 11:00 AM ESTSpecialty Pharmacy [facility] [facility] [address] [place] [address] Pharmacist, Specialtygroup [address] [place] [address] rufino Mensah (58D) - Rita 03/12/26- [place] 1:15 PM ESTDistance Health Vascular Medicine [address] [place] [address] Mariam Kenny PA-C [address] [place] [address] DX: DVT08/09/2025 10:30 AM ESTAppointment Gastroenterology [address] [place] [address] Abebe Baca MD, PhD [address] [place], [place] [phone] Crohn's disease with complication, unspecified gastrointestinal tract location (...08/17/2025 2:00 PM Psychology [address] [place] [address] Bubba Johnson PSYD [address] [place], [place] [phone] follow up 7 sessions 5 of 7documented as of this encounter Goals GoalPatient Goal TypeAssociated ProblemsRecent ProgressPatient-Stated?Author Blood Pressure < 130/80 Blood Gcuzzisk847/67(05/01/2025 1:49 PM EDT)Mariam Cheney PA-C Home Parenteral Nutrition Goal Template Care PlanHome Parenteral Nutrition Problem TemplateNoKey Moadocumented as of this encounter Visit Diagnoses Not on filedocumented in this encounter Additional Health Concerns Active ProblemsNoted DateDiagnosed DateHome Parenteral Nutrition Problem Culrxopi59/17/2025documented as of this encounter Care Teams Team MemberRelationshipSpecialtyStart DateEnd Date Berna Mike DO [address] [place], [place] [phone] Home Parenteral Nutrition ProviderGastroenterology08/08/24 Community Resourse Community Resource02/16/25documented as of this encounter
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
--- OUTSIDE RECORDS SUMMARY | 2025-06-20 11:03 | XMS_ITS | Encounter Summary ---
Author Organization [facility] Address [address] [place] [address] Care Team Providers Care Visual Basic .Net Developer Name Role Phone Berna Mike DO Unavailable Source Comments In the event this information is protected by the Federal Confidentiality of Alcohol and Drug AbusePatient Records regulations: The Federal rules restrict any use of the information to criminally investigate or prosecute any alcohol or drug abuse patient.[facility] Reason for Visit * ReasonCommentsPatient UpdateClinic Sign Out Encounter Details DateTypeDepartmentCare Team (Latest Contact Info)Mkwfmvvevdn70/15/2025Telephone Gastroenterology [address] [phone] Automatic Beam Warper Tender, [address] [place] [address] Patient Update (Clinic Sign Out) Social History Tobacco UseTypesPacks/DayYears UsedDateSmoking Tobacco: NeverPassive Smoke Exposure: CurrentSmokeless Tobacco: Never Passive Exposure Comments:Hu sband smokes out side per pt 02/14/2025 Alcohol UseStandard Drinks/WeekCommentsNot Currently0 (1 standard drink = 0.6 oz pure alcohol)PHQ-2AnswerDate RecordedPHQ-2 xxycp73607/28/2024Housing Stability Vital SignAnswerDate RecordedIn the last 12 months, was there a time when you were not able to pay the mortgage or rent on time?No09/03/2024Number of Times Moved in the Last YearNot on file09/03/2024t any time in the past 12 months, were you homeless or living in a care home (including now)?No09/03/2024Hunger Vital SignAnswerDate RecordedWithin the [...] were you homeless or living in a care home (including now)?02/16/2025HC UtilitiesAnswerDate Recorded In the past 12 months has the [employer], gas, oil, or water [employer] threatened to shut off services in your home?02/16/2025rea Deprivation IndexAnswerDate RecordedNational Score (1-100), lower number is lower gfxc495607/31/2024State Score (1-10), lower number is lower hwpv50107/31/2024Data from: https://www.neighborhoodatlas.medicine.[facility].edu/. Last address used for l[address] 07/31/2024CommentsNoSex and Gender Information ValueDate RecordedSex Assigned at BirthNot on fileLegal TbdEpfsiw76/18/2025 1:54 PM ESTGender IdentityNot on fileSexual OrientationNot on filedocumented as of this encounter Functional Status * Are you deaf or do you have serious difficulty hearing?AnswerDate of CqhdkthnmkFlqtdlOo88/26/2025 2:38 PM Hanane Benitez RN * Are you blind or do you have serious difficulty seeing, even when wearing glasses?AnswerDate of XpmirvktevXvosxpQe14/26/2025 2:38 PM Hanane Benitez RN * Do you have serious difficulty walking or climbing stairs?AnswerDate of CdwnmfdropDwzezpFu75/26/2025 2:38 PM Hanane Benitez RN * Do you have difficulty dressing or bathing?AnswerDate of AssessmentAuthorNo 08/30/2024 2:38 PM Hanane Benitez RN * Because of a physical, mental, or emotional condition, do you have difficulty doing errands alone such as visiting a doctor's office or shopping?AnswerDate of KuxtrdzrqjMfdwtjJn94/26/2025 2:38 PM Hanane Benitez RN documented as of this encounter Mental Status * Because of a physical, mental, or emotional condition, do you have serious difficulty concentrating, remembering, or making decisions?AnswerEntry Date CbrnapPc44/26/2025 2:38 PM Hanane Benitez RN documented in this encounter Miscellaneous Notes * Telephone Encounter - Elsy Hunter RD - 06/18/2025 8:49 AM EST Home Nutrition Support Service Patient seen virtually with Dr. Mike on 06/12. Weight 146 lb. Noted labs due again 06/18. Plan to wean off TPN over the rest of June if possible. Rec: Await 06/18 labs. Plan to continue weaning. Elsy Hunter, MS, RD, LD, CNSC documented in this encounter Plan of Treatment DateTypeDepartmentCare Team (Latest Contact Info)Kwpvfnohtnu90/22/2025 11:00 AM ESTDistance Health Psychology [address] [place] [address] Bubba Johnson PSYD [address] [place] [address] follow up 7 sessions 7 of 11:00 AM ESTSpecialty Pharmacy [facility] [address] [facility] [address] [place], [place] [id number] Pharmacist, Specialtygroup [address] [place] [address] [phone] refalayna Mensah (58D) - PAx 03/12/26- ND 1:15 PM [facility] Vascular Medicine [address] [place] [address] Mariam Kenny PA-C [address] [place], [place] [id number] DX: 08/09/2025 10:30 AM ESTAppointment Gastroenterology [address] [place] [address] Abebe Baca MD, PhD [address] [place] [address] Crohn's disease with complication, unspecified gastrointestinal tract location (...08/17/2025 2:00 PM [facility] Psychology [address] [place] [address] Bubba Johnson PSYD [address] [place], [place] [id number] follow up 7 sessions 5 of 7documented as of this encounter Goals GoalPatient Goal TypeAssociated ProblemsRecent ProgressPatient-Stated?Author Blood Pressure < 130/80 Blood Dhbubdwt668/67(05/01/2025 1:49 PM EDT)Mariam Cheney PA-Cdocumented as of this encounter Visit Diagnoses Not on filedocumented in this encounter Care Teams Team MemberRelationshipSpecialtyStart DateEnd Date Rashid AndreakaleDO margarita [address] [phone] Home Parenteral Nutrition ProviderGastroenterology08/08/24 Community Resourse Community Resource02/16/25documented as of this encounter
--- OUTSIDE RECORDS SUMMARY | 2025-08-07 19:00 | XMS_ITS | Clinical Summary ---
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: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 VNTVAHDNYJSTJorocs5702-41-40 00:00: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 Ordering Clinician Indication Dosage Frequency Signature (SIG) Comments Components acetaminophen 650 mg/20.3 mL oral soluti on 2025-04-11 00:00:[id number] NEEDED FOR MILD TO MODERATE PAIN20.3 mLEVERY 6 HOURS20.3 mL EVERY 6 HOURS (route: oral)Med Classification: Analgesic, Anti- inflammatory or Antipyreticamitriptyline 25 mg oyvwdy6040-59-21 00:00:00Yes [id number] ANXIETY1 tabletEVERY PM1 tablet EVERY PM (route: oral)Med Classification: Central Nervous System Agentscholecalciferol (vitamin D3) 25 mcg (1,000 unit) cdqqpue9850-97-98 00:00:[id number] capsuleDAILY1 capsule DAILY (route: oral)Med Classification: Electrolyte Balance-Nutritional Productscitalopram 40 mg lcdfhn7641-33-50 00:00:[id number] tabletDAILY1 tablet DAILY (route: oral)Med Classification: Central Nervous System Agentsdicyclomine 10 mg ezhdwgd6969-84-89 00:00:[id number] CRAMPING1 capsule3 TIMES DAILY1 capsule 3 TIMES DAILY (route: oral)Med Classification: Gastrointestinal Therapy Agentsenoxaparin 100 mg/mL subcutaneous xyvhphg9185-91-51 00:00:[id number] THINNER0.975 mLDAILY0.975 mL DAILY (route: subcutaneous)Med Classification: Hematological Agentshydroxyzine HCl 25 mg arngra7964-31-05 00:00:[id number] NEEDED FOR ANXIETY1 tablet3 TIMES DAILY1 tablet 3 TIMES DAILY (route: oral)Med Classification: Central Nervous System AgentsInfuvite Adult (Vial 1) 3,300 unit-150 mcg/5 mL intravenous sguixocc2806-52-58 00:00: 23:59:[id number] instructionsDAILYPer instructions DAILY (route: intravenous)Med Classification: Electrolyte Balance-Nutritional ProductsInfuvite Adult (Vial 2) 600 mcg-60 mcg-5 mcg/5 mL intravenous zmvbebaw5283-24-96 00:00: 23:59:[id number] NUTRITIONPer instructionsDAILYPer instructions DAILY (route: intravenous)Med Classification: Electrolyte Balance-Nutritional ProductsNormal Saline Flush 0.9 % injection ezqsjad2086-18-33 00:00: 23:59:[id number] nPJENZG91 mL DAILY (route: injection)Med Classification: Electrolyte Balance- Nutritional Productsondansetron 4 mg disintegrating zdbrpl0311-43-54 00:00:00Yes [id number] NEEDED FOR NAUSEA AND VOMITING1 tabletEVERY 12 HOURS1 tablet EVERY 12 HOURS (route: oral)Med Classification: Gastrointestinal Therapy Agents promethazine 25 mg ripxad6832-32-01 00:00:[id number] NEEDED FOR NAUSEA AND VOMITING 2ND LINE1 tabletEVERY 6 HOURS1 tablet EVERY 6 HOURS (route: oral) Med Classification: Respiratory Therapy AgentsProtonix 40 mg tablet,delayed pqhwpke8445-95-17 00:00:92Cil5100954742GFQG9 tabletDAILY1 tablet DAILY (route: oral)Med Classification: Gastrointestinal Therapy Agentssimethicone 125 mg chewable vvropo7284-82-06 00:00:[id number] NEEDED FOR FLATULENCE1 tablet EVERY 6 HOURS1 tablet EVERY 6 HOURS (route: oral)Med Classification: Gastrointestinal Therapy AgentsSkyrizi 360 mg/2.4 mL (150 mg/mL) subcutaneous wearable mzpywvqm8830-94-40 00:00:[id number] mgAS AMHEFERA506 mg DIRECTED (route: subcutaneous)Med Classification: Gastrointestinal Therapy AgentsTPN Electrolytes 35 mEq-20 mEq-5 mEq/20 mL intravenous ezvbmrjk7942-74-05 00:00:133080-31-98 23:59:[id number] wKLQTAZ4041 mL DAILY (route: intravenous)Med Classification: Electrolyte Balance-Nutritional Products Fiber (psyllium husk) 0.4 gram wortmfa4295-16-42 00:00:[id number] capsuleDAILY1 capsule DAILY (route: oral)Med Classification: Gastrointestinal Therapy Agentssodium chloride 0.45 % intravenous axsposwh9748-49-56 00:00:2025-06-07 23:59:[id number] lEBQJKPJ8361 mL WEEKLY (route: intravenous)Med Classification: Electrolyte Balance-Nutritional ProductsTPN Electrolytes 35 mEq-20 mEq-5 mEq/20 mL intravenous bhbcscrg6582-38-07 00:00:2025-06-07 23:59:[id number] mLAS UKVGFDMF3546 mL DIRECTED (route: intravenous)Med Classification: Electrolyte Balance-Nutritional Products sodium chloride 0.45 % intravenous arpbdpjh4570-12-79 00:00:[id number] TXNDHLBQJ5857 mL3 TIMES A FXZO7573 mL 3 TIMES A WEEK (route: intravenous)Med Classification: Electrolyte Balance-Nutritional ProductsTPN Electrolytes 35 mEq- 20 mEq-5 mEq/20 mL intravenous eqcxuiiy9545-13-30 00:00:56Cyb8388945161QEGLPWLDM Per instructions4 TIMES A WEEKPer instructions 4 TIMES A WEEK (route: intravenous)Med Classification: Electrolyte Balance-Nutritional ProductsInfuvite Adult (Vial 1) 3,300 unit-150 mcg/5 mL intravenous snpxtdkg4876-38-97 00:00:00 [id number] instructions4 TIMES A WEEKPer instructions 4 TIMES A WEEK (route: intravenous)Med Classification: Electrolyte Balance-Nutritional ProductsInfuvite Adult (Vial 2) 600 mcg-60 mcg-5 mcg/5 mL intravenous solution 2025-06-07 00:00:66Aao4648252848VYVAOFZLDLqd instructions4 TIMES A WEEKPer instructions 4 TIMES A WEEK (route: intravenous)Med Classification: Electrolyte Balance-Nutritional ProductsNormal Saline Flush 0.9 % injection syringe 2025-06-07 00:00:89Epy9902382250JZKV RMDPTLR48 mLAS LMMJLDJY30 mL DIRECTED (route: injection)Med Classification: Electrolyte Balance-Nutritional Products Vital Signs Vital Name Observation Time Observation Value Commen ts Temperature 2025-06-20 10:09:00.000 98.2 [degF] Ahfzuujslwm5339-16-94 10:54:00.80856 [degF]Awgopirmorv4739-27-98 10:07:00.000 98.9 [degF]Lijwy6499-42-94 10:09:00.30994 /uwtFfhth2102-61-06 10:54:00.11583 /rvmRlzdf6962-50-21 10:07:00.06843 /minO2 Saturation (%)2025-06-20 10:09:00.000 100 %O2 Saturation (%)2025-06-18 10:54:00.69426 %O2 Saturation (%)2025-06-11 10:07:00.36473 %Gjlenhgtkjbc9109-64-69 10:09:00.86196 /yzfXjscuzlrsiuv3223-15-45 10:54:00.22462 /fxeUcxqfbqafmkc2846-84-13 10:07:00.23216 /minSystolic Blood Pqsviswc6463-65-43 10:09:00.917740 mm[Hg]Systolic Blood Bniqtmho2623-66-97 10:54:00.811120 mm[Hg]Systolic Blood Rcyyqjze5460-01-55 10:07:00.975930 mm[Hg] Diastolic Blood Rhmmcrjn6141-05-87 10:09:00.57252 mm[Hg]Diastolic Blood Pressure 2025-06-18 10:54:00.43941 mm[Hg]Diastolic Blood Omnyxkql7778-60-41 10:07:00.000 62 mm[Hg] Plan of Treatment Planned Activity Planned Date Details Comments Future Scheduled Test SKILLED NURSE TO PERFORM VASCULAR ACCESS DEVICE [...] WEEKLY AND WITH EACH LAB DRAW.]Future Scheduled TestALL CONSULTING/COVERING PHYSICIANS MAY SIGN/ISSUE ORDERS. [code = ALL CONSULTING/COVERING PHYSICIANS MAY SIGN/ISSUE ORDERS.]Future Scheduled TestSKILLED NURSE FOR OBSERVATION/ASSESSMENT OF GASTROINTESTINAL STATUS AND TO INTERVENE TO MINIMIZE COMPLICATIONS. SKILLED NURSE TO PROVIDE SKILLED TEACHING/REINFORCEMENT RELATED TO ALTERED GASTROINTESTI NAL STATUS INCLUDING PATHOPHYSIOLOGY, NUTRITIONAL REQUIREMENTS, AND MEDICATION REGIMEN. [code = SKILLED NURSE FOR OBSERVATION/ASSESSMENT OF GASTROINTESTINAL STATUS AND TO INTERVENE TO MINIMIZE COMPLICATIONS. SKILLED NURSE TO PROVIDE SKILLED TEACHING/REINFORCEMENT RELATED TO ALTERED GASTROINTESTINALSTATUS INCLUDING PATHOPHYSIOLOGY, NUTRITIONAL REQUIREMENTS, AND MEDICATION REGIMEN.] Future Scheduled TestSKILLED NURSE TO REVIEW MEDICATION PROFILE [...] BY PHYSICIAN. SKILLED NURSE TO ASSESS/EVALUATE MALNUTRITION AND CO-MORBID CONDITIONS INCLUDING CROHN'S AND OTHER CONDITIONS THATPRESENT THEMSELVES DURING THE COURSE OF THIS EPISODE TO IDENTIFY CHANGES AND INTERVENE TO MINIMIZE COMPLICATIONS. [code = SKILLED NURSE TO EVALUATE AND DEVELOP PLAN OF CARE TO BE COUNTERSIGNED BY PHYS ICIAN. SKILLED NURSE TO ASSESS/EVALUATE MALNUTRITION AND CO-MORBID CONDITIONS INCLUDING CROHN'S ANDOTHER CONDITIONS THAT PRESENT THEMSELVES DURING THE COURSE OF THIS EPISODE TO IDENTIFY CHANGES AND INTERVENE TO MINIMIZE COMPLICATIONS.] Future Scheduled TestSKILLED NURSE TO REMOVE PICC LINE. NO ORDER TO REMOVE [code = SKILLED NURSE TO REMOVE PICC LINE. NOORDER TO REMOVE]Future Scheduled Test SKILLED NURSE TO OBTAIN BLOOD SPECIMEN DUE 06/18/2025 FROM CENTRAL LINE FOR PHOSPHATE, CMP, CBC, MAGNESIUM, CRP, ZINC, COPPER, SELENIUM, MANGANESE (WHOLE BLOOD). SN TO FLUSH LINE WITH 10ML NS 0.9% AND PULL BACK 10ML BLOOD AND DISCARD. OBTAIN ORDERED LABS AND FLUSH LINE WITH 10ML NS 0.9% SN MAY OBTAIN LABS VIA VENIPUNCTURE PRN INABILITY TO DRAW VIA VASCULAR ACCESS DEVICE. DIAGNOSIS CODE E44.1 MILDPROTEIN-CALORIE MALNUTRITION. FAX RESULTS TO DR YONATHAN REDD [phone] AND [facility] [phone]. [code = SKILLED NURSE TO OBTAIN BLOOD SPECIMEN DUE 06/18/2025 FROM CENTRAL LINE FOR PHOSPHATE, CMP, CBC, MAGNESIUM, CRP, ZINC, COPPER, SELENIUM, MANGANESE (WHOLE BLOOD). SN TO FLUSH LINE WITH 10ML NS 0.9% AND PULL BACK 10ML BLOOD AND DISCARD. OBTAIN ORDERED LABS AND FLUSH LINE WITH 10ML NS 0.9% SN MAY OBTAIN LABS VIA VENIPUNCTURE PRN INABILITY TO DRAW VIA VASCULAR ACCESS DEVICE. DIAGNOSIS CODE E44.1 MILD PROTEIN- CALORIE MALNUTRITION. FAX RESULTS TO DR YONATHAN REDD [phone] AND [facility] [phone].]Future Scheduled TestSKILLED NURSE TO PROVIDE AND INSTRUCT REGARDING FALL PREVENTION INTERVENTIONS. [code = SKILLED NURSE TO PROVIDE AND INSTRUCT REGARDING FALL PREVENTION INTERVENTIONS.]Future Scheduled TestSKILLED NURSE TO MONITOR PLAN FOR CURRENT TREATMENT OF DEPRESSION SUCH EFFECTS OF MEDICATION AND/OR NEED FOR REFERRAL FOR OTHER TREATMENT. [code = SKILLED NURSE TO MONITOR PLAN FOR CURRENT TREATMENT OF DEPRESSION SUCH EFFECTS OF MEDICATION AND/OR NEED FOR REFERRAL FOR OTHER TREATMENT.]Future Scheduled Test SKILLED NURSE TO PROVIDE/INSTRUCT REGARDING INTERVENTION(S) TO [...] NURSE MAY PERFORM 2 PRN VISITS FOR [facility] COMPLICATIONS [code = SKILLED NURSE MAY PERFORM 2 PRN VISITS FOR [facility] COMPLICATIONS]Future Scheduled TestSKILLED NURSE FOR OASIS DATA COLLECTION/COMPREHENSIVE ASSESSMENT TO DETERMINE SKILLED NEED. THIS MAY INCLUDE RESUMPTION OF CARE ASSESSMENT (RILEY) TO DETERMINE SKILLED NEED FOLLOWING INPATIENT DISCHARGE SHOULD PATIENT TRANSFER AND ADMIT TO AN INPATIENT FACILITY DURING CURRENT 60-DAY CERTIFICATION PERIOD. ADDITIONAL VISITS MAY BE REQUIRED FOR RECERT, FOLLOW UP, SIGNIFICANT CHANGE IN CONDITION (SCIC)AND DISCHARGE. HOME HEALTH ENGLISH PROFESSOR MAY PROVIDE CARE RECOMMENDATIONS NEEDED ON NEW,EXISTING OR CHANGED WOUND OR INTEGUMENTARY CONDITIONS. [code [...] IN CONDITION (SCIC) AND DISCHARGE. HOME HEALTH ENGLISH PROFESSOR MAY PROVIDE CARE RECOMMENDATIONS NEEDED ON NEW, EXISTING OR CHANGED WOUND OR INTEGUMENTARY CONDITIONS.]Howf1211-16-25Hfbmvhc Goal - NO HOSPITALIZATIONGoalPatient Goal - NO HOSPITALIZATION, TO GET OFF TPNGoalProvider Goal - PATIENT WILL REMAIN FREE OF VASCULAR ACCESS DEVICE COMPLICATIONS THOUGHOUT THERAPY.GoalProvider Goal -GoalProvider Goal - GASTROINTESTINAL STATUS WILL BE EVALUATED AND EXACERBATIONS IDENTIFIED WITH INTERVENTIONS IMPLEMENTED TO MINIMIZE COMPLICATIONS. PATIENT/CAREGIVER WILL VERBALIZE/DEMONSTRATE ABILITY MA NAGE GASTROINTESTINAL DISEASE EVIDENCED BY DECREASED SYMPTOMS AND NO UNPLANNED HOSPITALIZATIONS BY 08/06/25.GoalProvider Goal - PATIENT WILL DEMONSTRATE COMPLIANCE WITH MEDICATIONS PRESCRIBED. PATIENT/CAREGIVER WILL VERBALIZE/DEMONSTRATE UNDERSTANDING OF MEDICATION SCHEDULE, PURPOSE, SIDE EFFECTS AND AND ANY SPECIAL PRECAUTIONS RELATED TO MEDICATION REGIMEN BY 07/09/25. GoalProvider Goal - PATIENT/CAREGIVER WILL VERBALIZE/DEMONSTRATE ABILITY TO MANAGE PARENTERAL NUTRITIONADEQUATELY EVIDENCED BY CONSISTENT RETURN DEMONSTRATIONS USING PROPER TECHNIQUE, ABILITY TO STATE SIGNS/SYMPTOMS TO BE REPORTED TO NURSE AND IV NUTRITIONALS ADMINISTERED PER ORDERS BY 07/19/25.Goal Provider Goal - INEFFECTIVE ANTICOAGULATION THERAPY, EVIDENCED BY SIGNS/SYMPTOMS OF EXCESSIVE BLEEDING, WILL BE IDENTIFIED AND PROMPTLY REPORTED TO THE PHYSICIAN. PATIENT/CAREGIVER WILL VERBALIZE/DEMONSTRATE UNDERSTANDING OF MEASURES TO MAINTAIN EFFECTIVE ANTICOAGULATION THERAPY BY 07/03/25.GoalProvider Goal - A PLAN OF CARE WILL BE ESTABLISHED THAT MEETS THE PATIENT'S NURSING NEEDS AND COUNTERSIGNED BY PHYSICIAN.GoalProvider Goal - CENTRAL VASCULAR ACCESS DEVICE WILL BE REMOVED WITHOUT COMPLICATIONS.GoalProvider Goal - PATIENT/CAREGIVER WILL VERBALIZE UNDERSTANDING OF PURPOSE OF SPECIMEN COLLECTION AND LAB RESULTS ARE REPORTED TO PHYSICIAN.GoalProvider Goal - CHANGES IN PATIENT CO-MORBID STATUS WILL BE PROMPTLY IDENTIFIED AND REPORTED TO THEPHYSICIAN. PATIENT/CAREGIVER VERBALIZE/DEMONSTRATE MEASURES TO PREVENT FALLS BY 07/09/2025 GoalProvider Goal - CHANGES IN PATIENT CO-MORBID STATUS WILL BE PROMPTLY IDENTIFIED AND REPORTED TO THEPHYSICIAN. PATIENT/CAREGIVER VERBALIZE/DEMONSTRATE ABILITY TO PROPERLY MANAGE DEPRESSION BY 08/04/25.GoalProvider Goal - CHANGES IN PATIENT CO-MORBID STATUS WILL BE PROMPTLY IDENTIFIED AND REPORTED TO THE PHYSICIAN. PATIENT/CAREGIVER VERBALIZE/DEMONSTRATE ABILITY TO PROPERLY MANAGE PAIN BY 06/28/25.GoalProvider Goal -GoalProvider Goal - PATIENT/CAREGIVER WILL VERBALIZE/DEMONSTRATE UNDERSTANDING OF SYMPTOM MANAGEMENT, RESOURCE UTILIZATION, AND MEDICATION MANAGEMENT TO REDUCE UNPLANNED HOSPITAL OR EMERGENCY DEPARTMENT V ISITS BY 08/05/25.GoalProvider Goal -GoalProvider Goal - Progress Notes Progress Notes <paragraph>[Visit Date: 2024 by YANICK BARRON RN]:</paragraph><paragraph>LABS DRAWN FROM [facility] ORDERED. [facility] SITE CARE DONE NO S/S OF INJECTION DISCUSSED DISCHARGE AND WILL GO TO OUTPT BY E D OF YEAR. WILL HAVE 2 MORE NURSING VISITS. SEE IN 1 WEEK FOR NEXT DRESSING CHANGE</paragraph> <paragraph>[Visit Date: 2024 by YONI MARTINEZ RN]:</paragraph><paragraph>CURRENT STATUS: PT ALERT AND ORIENTED X4, VS AND ASSESSMENT COMPLETED. BLOOD DRAW AT 1010 FROM [facility] CATHETER FOR ZINC, COPPER, SELENIUM, AND MAGANESE(WHOLE BLOOD) WITHOUT DIFFICULTY. FLUSHED WITH 20MLS NACL EASILY POST BLOOD DRAW. SPECIMEN TAKEN TO [facility] AT 1045. RESULTS TO BE FAXED TO HOME OFFICE. </paragraph><paragraph></paragraph><paragraph>SINCE LAST IN-HOME VISIT: NO CHANGES, FALLS OR INJURIES </paragraph><paragraph></paragraph><paragraph>SKILLED NEED: ASSESSMENT AND BLOOD DRAW </paragraph><paragraph></paragraph><paragraph>RESPONSE TO TODAY S VISIT: TOLERATED WITHOUT DIFFICULTY </paragraph><paragraph></paragraph><paragraph>PLAN FOR NEXT VISIT: ASSESSMENT, DRESSING CHANGE</paragraph> Encounters Start Date/Time End Date/Time Encounter Type Admission Type Attending [facility] Facility Care Department Encounter ID Discharge Date Discharge Status Discharge Condition Discharge Reason Percent Goals Met 2025-06-10 00:00:00 2025-08-08 00:00:00 Outpatient KANE LOCKETT [id number]
== END 2025-06-20 10:59 | disposition home or self-care (01) ==
LOC: LAB 10:58
PROVIDERS: PCP Student in an Organized Health Care Education/Training Program; Visit Provider Student in an Organized Health Care Education/Training Program
DX: E44.1 Mild protein-calorie malnutrition (principal)
CPT/HCPCS: 36415; 82525; 84630

== ENCOUNTER 2025-07-02 12:16 | Outpatient (REF) | payer OTHER, SELFPAY ==
--- OUTSIDE RECORDS SUMMARY | 2024-05-01 07:30 | XMS_ITS ---
Author Organization The [facility] in [place] Address [address] [place] [address] Care Team Providers Care Vice President Name Role Phone None, Unknown or Primary Care Provider Unavailab Hemant Gruber Unavailable [phone] REASON FOR VISIT SATV/IP/Consult/Crohns/abd abscess Encounters Encounter Location Date Provider Diagnosis [address] [address] 05/01/2024 Hemant Katz Plan Of Treatment No Information Progress Notes * FRANCINE HOBSONDOB:1985 (39 yo F)Acc No.[id number]:05/01/2024 UNLOCKED PROGRESS NOTE Patient:?FRANCINE HOBSON :?Hemant Katz MDDOB:1985???Age:38 Y???Sex: FemaleDate:4Phone:[phone]:Philip [address] DR, ANASTASIYA GarciaJE[facility])[place], [place]Xqn:Unknown or None Subjective: * Chief Complaints: * 1 . SATV/IP/Consult/Crohns/abd abscess. * Medical History: Objective: * Vitals: Assessment: Plan: * Treatment: * * Electronic signature of eHmant Katz MD, [id number] on 07/02/2025 at 12:22 PM EST Sign off status: PendingVisit Status:?PEN (Pending) * Provider: Lizzeth Katz MD Date: 1 Generated for Printing/Faxing/eTransmitting on:?07/02/2025 12:22 PM EST
--- OUTSIDE RECORDS SUMMARY | 2024-07-20 06:30 | XMS_ITS ---
Author Organization The [facility] in [place] Address [address] [place] [address] Care Team Providers Care Commercial Collector Name Role Phone None, Unknown or Primary Care Provider Unavailab Hemant Gruber Unavailable [phone] REASON FOR VISIT STV/IP/Consult/crohns Encounters Encounter Location Date Provider Diagnosis [address] [address] 07/20/2024 Hemant Katz Plan Of Treatment No Information Progress Notes * FRANCINE HOBSONDOB:1985 (39 yo F)Acc No.[id number]:07/20/2024 UNLOCKED PROGRESS NOTE Patient:?FRANCINE HOBSON :?Hemant Katz MDDOB:1985???Age:38 Y???Sex: FemaleDate:07/20/2024Phone:[phone]:Philip [address], [place], [place]Dht:Unknown or None Subjective: * Chief Complaints: * 1 . STV/IP/Consult/crohns. * Medical History: Objective: * Vitals: Assessment: Plan: * Treatment: * * Electronic signature of Hemant Katz MD, [id number] on 07/02/2025 at 12:22 PM EST Sign off status: PendingVisit Status:?PEN (Pending) * Provider: Lizzeth Katz MD Date: 0 07/20/2024 Generated for Printing/Faxing/eTransmitting on:?07/02/2025 12:22 PM EST
--- OUTSIDE RECORDS SUMMARY | 2025-06-18 11:00 | XMS_ITS | Encounter Summary ---
Author Organization [facility] Address [address] [place] [address] Care Team Providers Care Oyster Grower Name Role Phone Berna Mike DO Unavailable Source Comments In the event this information is protected by the Federal Confidentiality of Alcohol and Drug AbusePatient Records regulations: The Federal rules restrict any use of the information to criminally investigate or prosecute any alcohol or drug abuse patient.[facility] Reason for Visit * ReasonCommentsFollow Up Encounter Details DateTypeDepartmentCare Team (Latest Contact Info)Iwchbezpjwn13/15/2025 11:00 AM ESTDistance Health Psychology [address] [place] [address] Bubba Johnson PSYD [address] [place] [address] Major depressive disorder, recurrent episode, [...] drink = 0.6 oz pure alcohol)PHQ-2AnswerDate RecordedPHQ-2 mgptr41107/28/2024Housing Stability Vital SignAnswerDate RecordedIn the last 12 months, was there a time when you were not able to pay the mortgage or rent on time?No09/03/2024Number of Times Moved in the Last YearNot on file09/03/2024t any time in the past 12 months, were you homeless or living in a long-term (including now)?No09/03/2024Hunger Vital SignAnswerDate RecordedWithin the past [...] were you homeless or living in a long-term (including now)?02/16/2025HC UtilitiesAnswerDate Recorded In the past 12 months has the electric, gas, oil, or water company threatened to shut off services in your home?02/16/2025rea Deprivation IndexAnswerDate RecordedNational Score (1-100), lower number is lower rpjg332107/31/2024State Score (1-10), lower number is lower idge66607/31/2024Data from: https://www.[facility] medical centeratlas.[facility]/. Last address used for ds[address]nerb[address]07/31/2024CommentsNoSex and Gender Information ValueDate RecordedSex Assigned at BirthNot on fileLegal OnwCqarub51/18/2025 1:54 PM ESTGender IdentityNot on fileSexual OrientationNot on filedocumented as of this encounter Functional Status * Are you deaf or do you have serious difficulty hearing?AnswerDate of ItpjrmvnsoAfnhrvVj12/26/2025 2:38 PM Hanane Benitez RN * Are you blind or do you have serious difficulty seeing, even when wearing glasses?AnswerDate of FedtcqxepzMzitkqGi37/26/2025 2:38 PM Hanane Benitez RN * Do you have serious difficulty walking or climbing stairs?AnswerDate of FyrbqkfhdnFmbimvSm44/26/2025 2:38 PM Hanane Benitez RN * Do you have difficulty dressing or bathing?AnswerDate of AssessmentAuthorNo 08/30/2024 2:38 PM Hanane Benitez RN * Because of a physical, mental, or emotional condition, do you have difficulty doing errands alone such as visiting a doctor's office or shopping?AnswerDate of UrrbltuhneSxgoxlAx61/26/2025 2:38 PM Hanane Benitez RN documented as of this encounter Mental Status * Because of a physical, mental, or emotional condition, do you have serious difficulty concentrating, remembering, or making decisions?AnswerEntry Date NfxrttGd94/26/2025 2:38 PM Hanane Benitez RN documented in this encounter Progress Notes * Bubba Johnson PSYD - 06/18/2025 11:12 AM EST Images from the original note were not included. [facility] FO[facility]-UP June 18, 2025 Yesica Milagro CPT Code: 45652 Psychotherapy 38-52 minutes Time initiated session: 11:12 AM to 11:58 AM I have communicated my name and active licensure. The patient's identity and physical location wereverified at the time of this visit. Either the patient or their legal chain sales representative has been informed of the risks and benefits of -- and alternatives to -- treatment through a remote evaluation andconsents to proceed with the evaluation remotely. Recording using ambient [employer] software for draft documentation of the visit was discussed with the patient/authorized chain sales representative; all questions welcomed and answered. Patient/authorized chain sales representative agreed to proceed Collateral Parties Present: [...] Assessment: Patient Data Generalized Anxiety Disorder Scale (JALYENE-7) 03/15/2025 05/28/2025 JAYLENE - 7 SCORES Score [...] Plan of Treatment DateTypeDepartmentCare Team (Latest Contact Info)Dxfazdmazlh28/06/2026 11:00 AM ESTSpecialty Pharmacy [facility] [address] [place], [place] [address] [address] Pharmacist, Specialtygroup [address] [place] [address] rufino Mensah (56D) - Rita 03/12/26- ND 1:15 PM [facility]Dis[facility] [address] [place] [address] Mariam Kenny PA-C [address] [place], [place] [phone] DX: DVT08/09/2025 10:30 AM ESTAppointment Gastroenterology [address] [place] [phone] Abebe Baca MD, PhD [address] [place], [place] [phone] Crohn's disease with complication, unspecified gastrointestinal tract location (...08/17/2025 2:00 PM ESTDistan [facility] [address] [place] [address] Bubba Johnson PSYD [address] [place], [place] [phone] follow up 7 sessions 5 of 7documented as of this encounter Goals GoalPatient Goal TypeAssociated ProblemsRecent ProgressPatient-Stated?Author Blood Pressure < 130/80 Blood Pdpfntvl916/67(05/01/2025 1:49 PM EDT)Mariam Cheney PA-Cdocumented as of this encounter Visit Diagnoses Diagnosis Major depressive disorder, recurrent episode, moderate with anxious distress (HCC)- Primary Psychological factor affecting physical condition Psychic factors associated with diseases classified elsewhere Crohn's disease with complication, unspecified gastrointestinal tract location (HCC) Other fatigue documented in this encounter Care Teams Team MemberRelationshipSpecialtyStart DateEnd Date Berna Mike DO [address] [place] [address] Home Parenteral Nutrition ProviderGastroenterology08/08/24 Community Resourse Community Resource02/16/25documented as of this encounter
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
--- OUTSIDE RECORDS SUMMARY | 2025-07-02 12:22 | XMS_ITS | Patient Health Record ---
Author Organization [facility] [place] Address [address] [place] [address] Care Team Providers Care Assistant Center Director Name Role Phone None, Unknown or Primary Care Provider Unavailab Hemant Gruber Unavailable [phone] Reason For Referral No Information Encounters Encounter Location Date Provider Diagnosis [address] [address] 07/20/2024 Abed Sterling Plan Of Treatment No Information Insurance Providers Payer Name Payer Address Payer Phone Subscriber Number Group Number Insured Name Patient Relationship to Insured Coverage Start Date Coverage End Date [facility] MEDICAID [address] [place], [place] [id number] CSOHFRANCINE HENRIQUEZ Self - patient is the insured 4
--- OUTSIDE RECORDS SUMMARY | 2025-07-02 12:22 | XMS_ITS | Clinical Summary ---
Author Organization [employer] Address [id number] [address] [place] [address] Care Team Providers Care Dental Floss Packer Name Role Phone Dalia Apple MD Primary Care Provider [phone] Allergies Active AllergyReactionsCriticalityNoted DateCommentsNsaids (Non-Steroidal Anti- Inflammatory [...] RecordedSex Assigned at BirthNot on fileLegal Sex Gjxdsv1407/05/2021 1:15 AM ESTGender IdentityNot on fileSexual OrientationNot on file Last Filed Vital Signs Vital SignReadingTime TakenCommentsBlood Jzioynsw823/7604/22/2024 4:17 PM EDT Binps68244/19/2024 4:17 PM LZURkviwezponl94.1 ??C (98.8 ??F)04/22/2024 4:17 PM EDTRespiratory Pkmi2718 4:17 PM EDTOxygen Iybjqovxav26%04/22/2024 4:17 PM EDTInhaled Oxygen Concentration--Mipopq84.4 kg (120 lb)04/22/2024 4:17 PM EDT Hgnbpo018.9 cm (5' 6.5 )04/22/2024 4:17 PM EDTBody Mass Index19.0804/22/2024 4:17 PM EDT Plan of Treatment Health MaintenanceDue DateLast DoneCommentsDepression Sfrpdiofj52/11/2000 DTaP,Tdap and Td Vaccines (2 - Td or Tdap)Pap Smear Influenza Iouhslw53Adult BMI Screening Tobacco Skehzuyre52 Medical Devices Not on file Insurance Care Teams Team MemberRelationshipSpecialtyStart DateEnd Date Dalia Apple MD [address] [place] [address] PCP - GeneralFamily Medicine12/27/23
--- OUTSIDE RECORDS SUMMARY | 2025-07-02 12:22 | XMS_ITS | Encounter Summary ---
Author Organization [facility] Address [address] [place] [address] Care Team Providers Care Collect On Delivery Clerk Name Role Phone Berna Mike DO Unavailable Source Comments In the event this information is protected by the Federal Confidentiality of Alcohol and Drug AbusePatient Records regulations: The Federal rules restrict any use of the information to criminally investigate or prosecute any alcohol or drug abuse patient.[facility] Reason for Visit * ReasonCommentsResultsPN weaning Encounter Details DateTypeDepartmentCare Team (Latest Contact Info)Qlpaqadgueg03/17/2025Telephone Gastroenterology [phone] Curtain Supervisor, [address] [place] [address] Results (PN weaning) Social History Tobacco UseTypesPacks/DayYears UsedDateSmoking Tobacco: NeverPassive Smoke Exposure: CurrentSmokeless Tobacco: Never Passive Exposure Comments:Mitchell pyle smokes out side per pt 02/14/2025 Alcohol UseStandard Drinks/WeekCommentsNot Currently0 (1 standard drink = 0.6 oz pure alcohol)PHQ-2AnswerDate RecordedPHQ-2 funja98807/28/2024Housing Stability Vital SignAnswerDate RecordedIn the last 12 months, was there a time when you were not able to pay the mortgage or rent on time?No09/03/2024Number of Times Moved in the Last YearNot on file09/03/2024t any time in the past 12 months, were you homeless or living in a intermediate (including now)?No09/03/2024Hunger Vital SignAnswerDate RecordedWithin the past [...] were you homeless or living in a intermediate (including now)?02/16/2025HC UtilitiesAnswerDate Recorded In the past 12 months has the [employer], gas, oil, or water [employer] threatened to shut off services in your home?02/16/2025rea Deprivation IndexAnswerDate RecordedNational Score (1-100), lower number is lower hwmf757707/31/2024State Score (1-10), lower number is lower nwch60507/31/2024Data from: https://www.neighborhoodatlas.medicine.[facility].edu/. Last address used for [address] 07/31/2024CommentsNoSex and Gender Information ValueDate RecordedSex Assigned at BirthNot on fileLegal DduUytdtb40/18/2025 1:54 PM ESTGender IdentityNot on fileSexual OrientationNot on filedocumented as of this encounter Functional Status * Are you deaf or do you have serious difficulty hearing?AnswerDate of WqxnshdouoRzggevKx69/26/2025 2:38 PM Hanane Benitez RN * Are you blind or do you have serious difficulty seeing, even when wearing glasses?AnswerDate of TznpwljcpgLkldjwCw85/26/2025 2:38 PM Hanane Benitez RN * Do you have serious difficulty walking or climbing stairs?AnswerDate of WxhjninlywTfxegpUk78/26/2025 2:38 PM Hanane Benitez RN * Do you have difficulty dressing or bathing?AnswerDate of AssessmentAuthorNo 08/30/2024 2:38 PM Hanane Benitez RN * Because of a physical, mental, or emotional condition, do you have difficulty doing errands alone such as visiting a doctor's office or shopping?AnswerDate of AydylalrevIsmnbtKi13/26/2025 2:38 PM Hanane Benitez RN documented as of this encounter Mental Status * Because of a physical, mental, or emotional condition, do you have serious difficulty concentrating, remembering, or making decisions?AnswerEntry Date QccqrpCi14/26/2025 2:38 PM Hanane Benitez RN documented in this encounter Miscellaneous Notes * Telephone Encounter - Mellisa Christie, DENISE - 06/20/2025 11:29 AM EST Home Nutrition Support Service Routine labs received. Lytes, BUN, and sCr WNL. Note plans to continue PN weaning as able. Called patient to discuss. She reports things are overall stable since she saw Dr. Rashid oconnell on 06/12 and plan was made to continue weaning PN over the month of June. Her weight is now 142 lbs (down from 146 lbs at that time but still above goal weight of 135 lbs). She continues to feel well-hydrated with IVFs on PN off-days and feels ready to drop another day of PN. Discussed decreasing PN to 3 days per week at this time before attempting to hold entirely. Note patient only has 80 cm of small bowel and is requiring IVFs on PN off-days, therefore, may continue to require IV support long-term. Note plan to maintain central line for now per Dr. Mike note from 06/12. Patient needs follow-up in person in July per Dr. Mike. Follow-up order placed. PN orders sent with reduction to 3 days per week with increase in IVFs to 4 days per week. Reccs: - PN orders sent with reduction in PN to 3 days per week. Increase IVFs to 4 days per week with reduction in PN as patient feeling adequately hydrated with IVFs daily on PN off-days and receives significantly more volume on PN days - Labs in 2 weeks to assess ability to wean off PN/hold. Note patient only has 80 cm of small boweland is requiring IVFs on PN off-days, therefore, may continue to require some form of IV support long-term - Follow-up order placed for in-person appointment in July per Dr. Rashid Christie RD, LD, CNSC documented in this encounter Plan of Treatment DateTypeDepartmentCare Team (Latest Contact Info)Mchodwjvqpe47/06/2026 11:00 AM ESTSpecialty Pharmacy [facility] [address] [place] [address] Pharmacist, [facility] [address] [place] [id number] rufino Mensah (58D) - Rita 03/12/26- [place] 1:15 PM [facility] [address] [place] [address] Mariam Kenny PA-C [address] [place], [place] [id number] DX: DVT08/09/2025 10:30 AM ESTAppointment Gastroenterology [address] [place] [address] Abebe Baca MD, PhD [address] [place] [address] Crohn's disease with complication, unspecified gastrointestinal tract location (...08/17/2025 2:00 PM ESTDis[facility] Psychology [address] [place] [address] Bubba Johnson PSYD [address] [place] [address] follow up 7 sessions 5 of 7documented as of this encounter Goals GoalPatient Goal TypeAssociated ProblemsRecent ProgressPatient-Stated?Author Blood Pressure < 130/80 Blood Zdxzxhkp679/67(05/01/2025 1:49 PM EDT)Mariam Cheney PA-C Home Parenteral Nutrition Goal Template Care PlanHome Parenteral Nutrition Problem TemplateNoKey Moadocumented as of this encounter Visit Diagnoses Not on filedocumented in this encounter Additional Health Concerns Active ProblemsNoted DateDiagnosed DateHome Parenteral Nutrition Problem Edisnxqm63/17/2025documented as of this encounter Care Teams Team MemberRelationshipSpecialtyStart DateEnd Date Berna Mike DO [address] [place] [address] Home Parenteral Nutrition ProviderGastroenterology08/08/24 Community Resourse Community Resource02/16/25documented as of this encounter
--- OUTSIDE RECORDS SUMMARY | 2025-07-02 12:22 | XMS_ITS | Clinical Summary ---
Author Organization [facility] Address [address] [place] [address] Care Team Providers Care Change Coordinator Name Role Phone Unavailable Primary Care Provider Unavailabl e Social History Tobacco UseTypesPacks/DayYears UsedDateSmoking Tobacco: Never Assessed CommentsUnknownSex and Gender InformationValueDate RecordedSex Assigned at Not on fileLegal SjzNnkhji73/04/2023 12:16 PM EDTGender IdentityNot on file Sexual OrientationNot on file Last Filed Vital Signs Vital SignReadingTime TakenCommentsBlood Uuhaqouu104/68010/02/2022 12:00 PM EDT Pulse--Temperature--Respiratory Rate--Oxygen Saturation--Inhaled Oxygen Concentration--Guocdh99.9 kg (121 lb)10/02/2022 12:00 PM PSXXmgjru200.2 cm (5' 7 )10/02/2022 12:00 PM EDTBody Mass Index18.95010/02/2022 12:00 PM EDT Plan of Treatment Not on file
--- OUTSIDE RECORDS SUMMARY | 2025-07-02 12:22 | XMS_ITS | Encounter Summary ---
Author Organization Address [address] [place] [address] Care Team Providers Care Cryptography Teacher Name Role Phone Berna Mike DO Unavailable Source Comments In the event this information is protected by the Federal Confidentiality of Alcohol and Drug AbusePatient Records regulations: The Federal rules restrict any use of the information to criminally investigate or prosecute any alcohol or drug abuse patient. Reason for Visit * ReasonCommentsPatient UpdateClinic Sign Out Encounter Details DateTypeDepartmentCare Team (Latest Contact Info)Xozloabiocl30/15/2025Telephone Gastroenterology [phone] Broadcaster, [address] [place] [address] Patient Update (Clinic Sign Out) Social History Tobacco UseTypesPacks/DayYears UsedDateSmoking Tobacco: NeverPassive Smoke Exposure: CurrentSmokeless Tobacco: Never Passive Exposure Comments:Hu sband smokes out side per pt 02/14/2025 Alcohol UseStandard Drinks/WeekCommentsNot Currently0 (1 standard drink = 0.6 oz pure alcohol)PHQ-2AnswerDate RecordedPHQ-2 bsisj94407/28/2024Housing Stability Vital SignAnswerDate RecordedIn the last 12 months, was there a time when you were not able to pay the mortgage or rent on time?No09/03/2024Number of Times Moved in the Last YearNot on file09/03/2024t any time in the past 12 months, were you homeless or living in a [place] (including now)?No09/03/2024Hunger Vital SignAnswerDate RecordedWithin the past [...] were you homeless or living in a [place] (including now)?02/16/2025HC UtilitiesAnswerDate Recorded In the past 12 months has the [employer], gas, oil, or water [employer] threatened to shut off services in your home?02/16/2025rea Deprivation IndexAnswerDate RecordedNational Score (1-100), lower number is lower epor809507/31/2024State Score (1-10), lower number is lower voyr31407/31/2024Data from: https://www.neighborhoodatlas.medicine.[facility].edu/. Last address used for [address] 07/31/2024CommentsNoSex and Gender Information ValueDate RecordedSex Assigned at BirthNot on fileLegal EdeTizmed93/18/2025 1:54 PM ESTGender IdentityNot on fileSexual OrientationNot on filedocumented as of this encounter Functional Status * Are you deaf or do you have serious difficulty hearing?AnswerDate of VguttiqkkgBsnxypFr77/26/2025 2:38 PM Hanane Benitez RN * Are you blind or do you have serious difficulty seeing, even when wearing glasses?AnswerDate of IyzwlbphkhJguqcyEu79/26/2025 2:38 PM Hanane Benitez RN * Do you have serious difficulty walking or climbing stairs?AnswerDate of DoiflxdwcuIwmxybNp40/26/2025 2:38 PM Hanane Benitez RN * Do you have difficulty dressing or bathing?AnswerDate of AssessmentAuthorNo 08/30/2024 2:38 PM Hanane Benitez RN * Because of a physical, mental, or emotional condition, do you have difficulty doing errands alone such as visiting a doctor's office or shopping?AnswerDate of JodxhgwemjNemskqWg30/26/2025 2:38 PM Hanane Benitez RN documented as of this encounter Mental Status * Because of a physical, mental, or emotional condition, do you have serious difficulty concentrating, remembering, or making decisions?AnswerEntry Date JarmjyDs57/26/2025 2:38 PM Hanane Benitez RN documented in [...] Plan of Treatment DateTypeDepartmentCare Team (Latest Contact Info)Srvzvyigsdq95/06/2026 11:00 AM ESTSpecialty Pharmacy [facility] [phone] [facility] [id number] [place] [address] Pharmacist, [facility] [address] [place] [address] [place] [address] rufino Mensah (58D) - Rita 03/12/26- ND 07/160007/11/2025 1:15 PM [facility] Vascular Medicine [address] [place] [address] Mariam Kenny PA-C [address] [place] [address] DX: DVT08/09/2025 10:30 AM ESTAppointment Gastroenterology [address] [place] [address] Abebe Baca MD, PhD [address] [place] [address] Crohn's disease with complication, unspecified gastrointestinal tract location (...08/17/2025 2:00 PM [facility] Psychology [address] [place] [address] Bubba Johnson PSYD [address] [place] [address] follow up 7 sessions 5 of 7documented as of this encounter Goals GoalPatient Goal TypeAssociated ProblemsRecent ProgressPatient-Stated?Author Blood Pressure < 130/80 Blood Zkrvzqrb860/67(05/01/2025 1:49 PM EDT)Mariam Cheney PA-Cdocumented as of this encounter Visit Diagnoses Not on filedocumented in this encounter Care Teams Team MemberRelationshipSpecialtyStart DateEnd Date Berna Mike DO [address] [place] [address] Home Parenteral Nutrition ProviderGastroenterology08/08/24 Community Resourse [facility] Resource02/16/25documented as of this encounter
--- OUTSIDE RECORDS SUMMARY | 2025-07-02 12:22 | XMS_ITS | Clinical Summary ---
Author Organization [facility] Address [address] [place] [address] Care Team Providers Care In Home Baby Sitter Name Role Phone Berna Mike DO Unavailable [...] nausea/vomiting. 60 tablet 5Active OTC PRODUCT Probiotic yxexzs095Active Cholecalciferol, Vitamin D3, (VITAMIN D) 25 mcg [...] is on AC at home Attention to xjgkpysqf12/14/2025 Assessment & Plan (02/21/2025 2:03 PM EDT): [...] disease of small and large intestines with umpgwwgfkmdl28/02/2025 Assessment & Plan (02/21/2025 2:03 PM EDT): [...] deep vein thrombosis (DVT) of left upper lhdncisbk14/01/2025ute deep vein thrombosis (DVT) of left upper extremity, unspecified vein09/02/2024High output ralhovfdz59/25/2025 Assessment & Plan (08/29/2024 2:23 PM EST): [...] medicine, appreciate recs [place] lovenox Anticoagulation management jqbovdmwp70/24/2025 Assessment & Plan (08/29/2024 2:21 PM EST): [...] & Plan (02/21/2025 2:04 PM EDT): PLAN: [facility] Assessment & Plan (02/20/2025 1:24 PM EDT): [facility] Assessment & Plan (02/19/2025 10:52 AM EDT): PLAN: [facility] Assessment & Plan (02/16/2025 12:02 PM EDT): PLAN: [facility] Assessment & Plan (08/29/2024 2:22 PM EST): PLAN: [facility] Consult APMS for repeat TAP block, hold off for now Assessment & Plan (08/29/2024 2:21 PM EST): PLAN: [facility] Consult APMS for repeat TAP block, hold off for now Assessment & Plan (08/24/2024 11:30 AM EST): PLAN: [facility] Consult APMS for repeat TAP block, hold off for now Assessment & Plan (08/23/2024 7:39 AM EST): PLAN: [facility] Consult APMS for repeat TAP block, hold off for now Assessment & Plan (08/22/2024 8:48 AM EST): PLAN: [facility] Consult APMS for repeat TAP block, hold off for now Assessment & Plan (08/21/2024 2:49 PM EST): PLAN: [facility] Consult APMS for repeat TAP block, hold off for now Difficult intravenous dnmqqs3008/21/2024 Assessment & Plan (08/29/2024 2:22 PM EST): [...] Consider nicotine patches, appreciate recs Small bowel kihkatnje50/01/2025 Assessment & Plan (08/29/2024 2:22 PM EST): [...] EST): PLAN: Dorita BOLIVAR appreciate recs Feeding hwatqpqnnpit83/27/2025Therapeutic drug /27/2025Malnutrition of moderate oaceut4307/31/2024 Assessment & Plan (02/21/2025 2:03 PM EDT): [...] Consult OSMEL, appreciate recs Partial small bowel ldrvttujkah83/26/2025 Assessment & Plan (08/29/2024 2:22 PM EST): [...] of both small and large intestine with frhtbng0207/30/2024 Assessment & Plan (08/29/2024 2:22 PM EST): [...] previous ileocolic anastomosis, end ileostomy (08/18/24) Mood lqywvcfs37/26/2025 Assessment & Plan (02/21/2025 2:03 PM EDT): [...] Resolved Problems ProblemNoted DateDiagnosed DateResolved DateAbdominal fluid pkrdueiztm64/26/2025 08/07/2024 Encounters DateTypeDepartmentCare PqhgImhwqxcsdgt70/22/2025 11:00 AM ESTDistance [facility] [address] [place] [address] Bubba Johnson, YOSHI Major depressive disorder, recurrent episode, moderate with anxious distress (HCC) (Primary Dx); Psychological factor affecting physical condition; Crohn's disease with complication, unspecified gastrointestinal tract location (HCC); Other shunfyn0106/25/2025[facility] [address] [address] Sagger Filler, Hpn Results (Shin)06/20/2025[facility] G[facility] [address] [address] Sagger Filler, Hpn On total parenteral nutrition (TPN) (Primary Dx)06/20/2025[facility] [address] [address] Sagger Filler, Hpn Results (PN weaning)06/20/2025 [facility] Adult [address] [place] [address] Provider, [facility] Home Parenteral Nutrition Explosive Ordnance Technician Miwospasbs74/15/2025 11:00 AM [facility] [address] [address] Bubba Johnson PSYD Major depressive disorder, recurrent episode, moderate with anxious distress (HCC) (Primary Dx); Psychological factor affecting physical condition; Crohn's disease with complication, unspecified gastrointestinal tract location (HCC); Other hrkqgqm5306/18/2025[facility] [address] [address] Sagger Filler, Hpn Patient Update (Clinic Sign Out)06/12/2025 3:00 PM Gastroenterology [address] [address] Berna Mike DO On total parenteral nutrition (TPN) (Primary Dx); Therapeutic drug monitoring; 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; Crohn's disease with complication, unspecified gastrointestinal tract location (HCC); Central venous catheter in place, fffpusbuv23/04/2025[facility] [address] [address] Berna Mike DO 06/06/2025 Patient Msg Gastroenterology [address] [address] Provider, [facility] Appointment / Fmooieqglzl21/03/2025[facility] [address] [place] [phone] Sagger Filler, Hpn Results (PN weaning)06/05/2025[facility] [address] [phone] Abebe Baca MD, PhD Zqmupg6006/04/2025 2:[facility] [address] [place] [address] Elizabeth, Bubba, PSYD Major depressive disorder, recurrent episode, moderate with anxious distress (HCC) (Primary Dx); Psychological factor affecting physical condition; Crohn's disease with complication, unspecified gastrointestinal tract location (HCC); Other cvmvgem7605/28/2025 4:00 PM [facility] [address] [place] [address] Elizabeth, Bubba, PSYD Major depressive disorder, recurrent episode, moderate with anxious distress (HCC) (Primary Dx); Psychological factor affecting physical condition; Crohn's disease with complication, unspecified gastrointestinal tract location (HCC); Other mosejby2805/28/20258624Ymhosi02/21/2025 Patient [facility] Gastro[facility] [address] [phone] Grace Monterroso RPh Checking In05/24/2025Orders Only Gastroenterology [address] [phone] Abebe Baca MD, PhD Bloating (Primary Dx)05/23/2025 3:00 PM ESTOffice Visit Colorectal Surgery [address] [phone] Elsy Rousseau DO Crohn's disease of both small and large intestine with other complication (HCC); Abdominal bloating; Encounter for adjustment and management of vascular access device; Short bowel syndrome with colon in hxzbzsduos70/19/2025[facility] [address] [phone] Sagger Filler, Hpn Sshaefy0005/23/2025 Patient [facility] Gastroenterology [address] [phone] Provider, Ccf Dr. Mike kfnonvlgxzg64/15/2025 Patient Msg Gastroenterology [address] [address] Provider, [facility] APPOINTMENT XXYQQDQD81/11/2025[facility] [address] [address] Sagger Filler, Dilma Results (Routine labs stable-discuss weaning)05/10/2025Specialty Pharmacy [facility] [address] [place] [address] Nidia Maya, [facility] Inflammatory Conditions - Medication Refill (Skyrizi)05/07/2025 2:30 PM [facility] [address] [place] [address] Mariam Kenny PA-C History of DVT (deep vein thrombosis) (Primary Dx); Anticoagulation management vjmxxdybj59/03/2025[facility] [address] [phone] Sagger Filler, Dilma 05/07/2025[facility] [address] [place] [address] Mariam Kenny PA-C 05/03/2025[facility] [address] [address] Sagger Filler, Dilma Patient Dysyns5605/01/2025 1:30 PM EDTOffice Visit Gastroenterology [address] [phone] Berna Mike DO On total parenteral nutrition (TPN) (Primary Dx); Therapeutic drug monitoring; Encounter for nutritional counseling; 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; Crohn's disease of both small and large intestine with other complication (HCC); Central venous catheter in place, permanent; Presence of permanent central venous /23/2025 1:30 [facility] [address] [address] Abebe Baca MD, PhD Bloating (Primary Dx); Straining during bowel shhcwumke30/23/5112Pisncr81/10/2025[facility] [address] [phone] Sagger Filler, Hpn Ugymrjq7004/11/2025 Patient Msg Gastroenterology [address] [phone] Provider, [facility] medication follow up04/11/2025[facility] [address] [address] Sagger Filler, Hpn Patient Imtzdc6304/10/2025[facility] [address] [phone] Sagger Filler, Hpn Patient Update (Outpatient labs vs C)04/03/2025Telephone Gastroenterology [address] [place], [place] [phone] Berna Mike DO Patch Press Operator - 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 (needs home care nursing)04/02/2025Results Follow-Up Gastroenterology [address] [address] Obdulia Patrick APRN.SLITTER OPERATOR from Last 3 Months Social History Tobacco UseTypesPacks/DayYears UsedDateSmoking Tobacco: NeverPassive Smoke Exposure: CurrentSmokeless Tobacco: Never Tobacco Cessation:Counseling Given: Not Answered Passive Exposure Comments: smokes out side per pt 02/14/2025lcohol Use Standard Drinks/WeekCommentsNot Currently0 (1 standard drink = 0.6 oz pure alcohol)PHQ-2AnswerDate RecordedPHQ-2 cupuk72208/26/2024Housing Stability Vital SignAnswerDate RecordedIn the last 12 months, was there a time when you were not able to pay the mortgage or rent on time?No09/03/2024Number of Times Moved in the Last YearNot on file09/03/2024t any time in the past 12 months, were you homeless or living in a detention (including now)?No09/03/2024Hunger Vital Sign AnswerDate RecordedWithin the past 12 months, you worried that your food would run out before you got the money to buymore.Never true02/16/2025Within the past 12 months, the food you bought just didn't last and you didn't have money to get more.Never true08/15/2025PRAPARE - TransportationAnswerDate RecordedIn the past 12 months, [...] living in a detention (including now)?02/16/2025HC UtilitiesAnswerDate RecordedIn the past 12 months has the electric, gas, oil, or water company threatened to shut off services in your home?No02/16/2025rea Deprivation IndexAnswerDate Recorded National Score (1-100), lower number is lower zekt695107/31/2024State Score (1- 10), lower number is lower gqxm41407/31/2024Data from: https://www.neighborhoodatlas.medicine.[facility].edu/. Last address used for zqfxcuukvoh840 NIMISHA 07/31/2024CommentsNoSex and Gender Information ValueDate RecordedSex Assigned at BirthNot on fileLegal TpvZwrbnt34/18/2025 1:54 PM ESTGender IdentityNot on fileSexual OrientationNot on file Last Filed Vital Signs Vital SignReadingTime TakenCommentsBlood Xazeikdb267/6710 1:49 PM EDT Ivjte841205/01/2025 1:49 PM TXFDahihfzjusv68.8 ??C (98.2 ??F)05/01/2025 1:49 PM EDTRespiratory Vcjx272403/02/2025 1:30 PM EDTOxygen Tddzznjxuy86%05/01/2025 1:49 PM EDTInhaled Oxygen Concentration--Nbyvbl03.9 kg (143 lb)05/23/2025 2:45 PM EST Jfjahz711.9 cm (5' 6.5 )05/23/2025 2:45 PM ESTBody Mass Index22.7405/23/2025 2:45 PM EST Plan of Treatment DateTypeDepartmentCare Team (Latest Contact Info)Jluoeygekbh92/06/2026 11:00 AM ESTSpecialty Pharmacy [facility] [id number] [place] [address] Pharmacist, [facility] [address] [place] [address] refill Rodrick (58D) - PAx 03/12/26- ND 1:15 PM [facility]DisF [facility] [address] [place] [address] Mariam Kenny PA-C [address] [place] [address] DX: DVT08/09/2025 10:30 AM ESTAppointment Gastroenterology [address] [place] [address] Abebe Baca MD, PhD [address] [place] [address] Crohn's disease with complication, unspecified gastrointestinal tract location (...08/17/2025 2:00 PM [facility] [address] [place] [address] Bubba Johnson PSYD [address] [place] [address] follow up 7 sessions 5 of 7Health MaintenanceDue DateLast DoneCommentsAnxiety Nrejdopjz18/11/2006Depression Plqbsgpqp72/11/2006HIV Pyyqvuuck72/11/2006 Hepatitis B Vaccine (1 of 3 - 19+ 3-dose series)09/12/2006Cervical Cancer Ppxtxakip06/11/2009HPV Vaccine (1 - 3-dose SCDM series)09/12/2014DTaP,Tdap,Td Vaccine (2 - Td or Tdap)Covid-19 Vaccine ( season)2025Influenza Vaccine (#1)Hepatitis C Screening Wnzilqwmf34/08/2022 Goals GoalPatient Goal TypeAssociated ProblemsRecent ProgressPatient-Stated?Author Blood Pressure < 130/80 Blood Lucvhmyc543/67(05/01/2025 1:49 PM EDT)Mariam Cheney PA-C Home Parenteral Nutrition Goal Template Care PlanHome Parenteral Nutrition Problem TemplateAlexandrea Vasquez Procedures Procedure NamePriorityDate/TimeAssociated DiagnosisCommentsTPN FORMULA FLOW WGTGPRXPGQLXNoifkcr68/17/2025 11:28 AM EST TPN FORMULA FLOW YVLZCXUQFJXJTqchgen17/03/2025 12:13 PM EST TPN FORMULA FLOW GRCLXPLCEJZCHqaxlqs06/19/2025 1:25 PM EST TPN FORMULA FLOW SVOGOYSPYBJVQdxhyrh50/11/2025 9:37 AM EST PT ED PATIENT JJSRWFWZUHS33/08/2025 TPN FORMULA FLOW SKCKRDMSAWLNQgxwljq49/03/2025 4:07 PM EST TPN FORMULA FLOW HKWLVFYBIVFHHciyepz27/30/2025 9:22 AM EDT TPN FORMULA FLOW JRLBFAIQMVTGRuxonls82/10/2025 2:13 PM EDT from Last 3 Months Results * TPN FORMULA FLOW PRESCRIPTION (06/20/2025 11:28 AM EST) Only the most recent of7 resultswithin the time period is included. Specimen (Source)Anatomical Location / LateralityCollection Method / Volume Collection TimeReceived Time06/20/2025 11:28 AM EST Narrative OTHER LAB - 06/20/2025 11:28 AM EST PN/EN Formula Flow [facility] #: [id number] Patient Name: YESICA HUMPHREY Patient Date of : 1985 Physician: BERNA MIKE MD Clinician: Mellisa Christie Date of Prescription: 06/20/2025 ?Amino Acids Solution: 15% amino acids 15% ? Amino Acids (g): 115 ?Amino Acid %: 3.6 ?Amino Acids (KCal/Day): 197 (DOWN) ? Amino Acids (g/L): 35.9 ?Dextrose (g): 230 ? Dextrose (KCal/Day): 335 (DOWN) ?Dextrose (g/L): 72 ? Fat Emulsion Solution: Smoflipid 20% ?Fat Percentage (%): 20 ?Fat Emul. Concentrate (ml): 320 ? Fat Emulsion (KCal/Day): 274 (DOWN) ?Fat Emulsion (g/L): 20 ?2 in 1 days/wk: 0 ?3 in 1 days/wk: 3 (DOWN) ?Total KCal w/Fat/Day: 806 (DOWN) ? KCal/k.5 (DOWN) ?Grams Protein/k.8 ?Water for Injection (ml): [...] (mcg): 0 ?PN Infus Days (per wk): 3: August Klein Thu (DOWN) ?PN Infus Hrs (per day): 12 ?Taper Up (hrs): 1 ?Taper Down (hrs): 1 ? PN Refill: ? PN Start Date: 06/20/2025 (*) ? PN End Date: 09/18/2025 (*) ?IVF Solution: 0.45NS ? IVF Volume (ml): 1000 ? IVF Infus Days/wk: 4 (UP) ? Other Desc. 1: 0.45% Sodium Chloride ?Other Qty./Day 1: 1 ?Other Unit 1: liter ? Other Days/wk 1: prn for hydration Ethanol Lock: Yes Homecare Pharmacy Date: ??08/31/2024 Name: ??[facility], [facility] Phone: ??[phone] Fax: ??[phone] Homecare Pharmacy Comments: TPN Physician Orders: ?? Manganese (Whole Blood): ?? due date: 06/18/25 None] CRP: ?? due date: 06/18/25 None] Zinc: ?? due date: 06/18/25 None] Copper: ?? due date: 06/18/25 None] Selenium: ?? due date: 06/18/25 None] CMP: ?? due date: 07/02/25 None] PO4: ?? due date: 07/02/25 None] Mg: ?? due date: 07/02/25 None] CBC: ?? due date: 07/02/25 None] TrieneTetraene Ratio: ?? due date: 07/30/25 Comments: ??Avoidance of dietary fat by mouth and IV fat emulsion for 8-12 hours before blood draw. If PN is ordered, instruct patient to infuse a 2-in-1 PN solution that does not contain lipids the 12 hours before lab is to be drawn. Physician Comments: ??Reduce PN to 3 days per week.Please ensure patient has 3 bags PRN IVF on hand. Please send lab requisition to patient to alert lab when labs are due. (UP), (DOWN), and (*) indicate change from last formula flow Created By: Mellisa Christie Creation Date: 06/20/2025 11:25AM Reported Date: 06/20/2025 11:28AM Authorizing ProviderResult TypeResult StatusCcf ProviderALLOGENFinal Result Performing OrganizationAddressCity/State/ZIP CodePhone Number OTHER LAB * PT ED PATIENT INFORMATION (05/12/2025)Specimen (Source)Anatomical Location / LateralityCollection Method / VolumeCollection TimeReceived Time05/12/2025 Narrative [facility] - 06/27/2025 Provider TAYLOR your patient YESICA MILAGRO has not started their Edgar program, time has . Edgar program: PATIENT SAFETY INSTRUCTIONS FOR HEALTHCARE SETTINGS Authorizing ProviderResult TypeResult StatusAnna Taylor DOEMMIFinal Result Performing OrganizationAddressCity/State/ZIP CodePhone Number [facility] from Last 3 Months Additional Health Concerns Active ProblemsNoted DateDiagnosed DateHome Parenteral Nutrition Problem Zodeuzsq18/17/[address] [place] [address] Advance Directives * Full Code (Latest Code Status on File) Date ActivatedDate InactivatedComments09/02/2024 3:27 AM09/06/2024 5:41 PMQuestion AnswerCommentsFull Code Order Discussed With:* Patient * Full Code Date ActivatedDate InactivatedComments08/17/2024 9:03 AM08/30/2024 7:00 PMQuestion AnswerCommentsFull Code Order Discussed With:* Patient Care Teams Team MemberRelationshipSpecialtyStart DateEnd Date Berna Mike DO [address] [place] [address] Home Parenteral Nutrition ProviderGastroenterology08/08/24 Community Resourse Community Resource02/16/25
--- OUTSIDE RECORDS SUMMARY | 2025-07-02 12:22 | XMS_ITS | Encounter Summary ---
Author Organization [facility] Address [address] [place] [address] Care Team Providers Care Biblical Studies Professor Name Role Phone Berna Mike DO Unavailable Source Comments In the event this information is protected by the Federal Confidentiality of Alcohol and Drug AbusePatient Records regulations: The Federal rules restrict any use of the information to criminally investigate or prosecute any alcohol or drug abuse patient.[facility] Reason for Visit * ReasonCommentsResultsTEs Encounter Details DateTypeDepartmentCare Team (Latest Contact Info)Glexrivqatu22/22/2025Telephone Gastroenterology [address] [phone] Wheel Truer, n [address] [place] [phone] Results (Shin) Social History Tobacco UseTypesPacks/DayYears UsedDateSmoking Tobacco: NeverPassive Smoke Exposure: CurrentSmokeless Tobacco: Never Passive Exposure Comments:Mitchell edenilson smokes out side per pt 02/14/2025 Alcohol UseStandard Drinks/WeekCommentsNot Currently0 (1 standard drink = 0.6 oz pure alcohol)PHQ-2AnswerDate RecordedPHQ-2 /22/2025Housing Stability Vital SignAnswerDate RecordedIn the last 12 months, was there a time when you were not able to pay the mortgage or rent on time?No09/03/2024Number of Times Moved in the Last YearNot on file09/03/2024t any time in the past 12 months, were you homeless or living in a half-way (including now)?No09/03/2024Hunger Vital SignAnswerDate RecordedWithin the past [...] were you homeless or living in a half-way (including now)?02/16/2025HC UtilitiesAnswerDate Recorded In the past 12 months has the [employer], gas, oil, or water [employer] threatened to shut off services in your home?02/16/2025rea Deprivation IndexAnswerDate RecordedNational Score (1-100), lower number is lower uisa932207/31/2024State Score (1-10), lower number is lower gbme32307/31/2024Data from: https://www.neighborhoodatlas.medicine.[facility].edu/. Last address used for [place]IM[place] 07/31/2024CommentsNoSex and Gender Information ValueDate RecordedSex Assigned at BirthNot on fileLegal DaoWdrmtv66/18/2025 1:54 PM ESTGender IdentityNot on fileSexual OrientationNot on filedocumented as of this encounter Functional Status * Are you deaf or do you have serious difficulty hearing?AnswerDate of RwzafunesyDhiqpbYy49/26/2025 2:38 PM Hanane Benitez RN * Are you blind or do you have serious difficulty seeing, even when wearing glasses?AnswerDate of IdbbwpiuyuHdxitmNd55/26/2025 2:38 PM Hanane Benitez RN * Do you have serious difficulty walking or climbing stairs?AnswerDate of FqqhngcaheXrgjslGa85/26/2025 2:38 PM Hanane Benitez RN * Do you have difficulty dressing or bathing?AnswerDate of AssessmentAuthorNo 08/30/2024 2:38 PM Hanane Benitez RN * Because of a physical, mental, or emotional condition, do you have difficulty doing errands alone such as visiting a doctor's office or shopping?AnswerDate of NichigxobsUqkfecEa21/26/2025 2:38 PM Hanane Benitez RN documented as of this encounter Mental Status * Because of a physical, mental, or emotional condition, do you have serious difficulty concentrating, remembering, or making decisions?AnswerEntry Date AvxoyqUd82/26/2025 2:38 PM Hanane Benitez RN documented in this encounter Miscellaneous Notes * Telephone Encounter - Jaimie Davis RD - 06/25/2025 4:23 PM EST Home Nutrition Support Service Trace elements WNL Rec: repeat in 6 months if still on PN Jaimie PEREZ, RD, LD, CNSC documented in this encounter Plan of Treatment DateTypeDepartmentCare Team (Latest Contact Info)Xcwdvhmcpdf24/06/2026 11:00 AM ESTSpecialty Pharmacy [facility] [address] [place] [address] Pharmacist, [facility] [address] [place] [address] [place] [address] rufino Mensah (58D) - PAx 03/12/26- ND 1:[address] [facility] Vascular Medicine [address] [place] [address] Mariam Kenny PA-C [address] [place] [address] DX: DVT08/09/2025 10:30 AM ESTAppointment Gastroenterology [address] [place] [address] Abebe Baca MD, PhD [address] [place] [address] Crohn's disease with complication, unspecified gastrointestinal tract location (...08/17/2025 2:[address] [facility] Psychology [address] [place] [address] Bubba Johnson PSYD [address] [place], [place] [phone] follow up 7 sessions 5 of 7documented as of this encounter Goals GoalPatient Goal TypeAssociated ProblemsRecent ProgressPatient-Stated?Author Blood Pressure < 130/80 Blood Nuxkpgsy527/67(05/01/2025 1:49 PM EDT)Mariam Cheney PA-C Home Parenteral Nutrition Goal Template Care PlanHome Parenteral Nutrition Problem TemplateIrene Vasquezcumented as of this encounter Visit Diagnoses Not on filedocumented in this encounter Additional Health Concerns Active ProblemsNoted DateDiagnosed DateHome Parenteral Nutrition Problem Kbjnzejx46/17/2025documented as of this encounter Care Teams Team MemberRelationshipSpecialtyStart DateEnd Date Berna Mike DO [address] [place] [address] Home Parenteral Nutrition ProviderGastroenterology08/08/24 Community Resourse Community Resource02/16/25documented as of this encounter
--- OUTSIDE RECORDS SUMMARY | 2025-07-02 12:22 | XMS_ITS | Encounter Summary ---
Author Organization [facility] Address [address] [place] [address] Care Team Providers Care Fruit Or Nut Picker Name Role Phone Berna Mike DO Unavailable Source Comments In the event this information is protected by the Federal Confidentiality of Alcohol and Drug AbusePatient Records regulations: The Federal rules restrict any use of the information to criminally investigate or prosecute any alcohol or drug abuse patient.[facility] Encounter Details DateTypeDepartmentCare Team (Latest Contact Info)Acmpjefmctl13/17/2025Orders Only Gastroenterology [address] [id number] General Contractor, [address] [place] [address] On total parenteral nutrition (TPN) (Primary Dx) Social History Tobacco UseTypesPacks/DayYears UsedDateSmoking Tobacco: NeverPassive Smoke Exposure: CurrentSmokeless Tobacco: Never Passive Exposure Comments:Mitchell pyle smokes out side per pt 02/14/2025 Alcohol UseStandard Drinks/WeekCommentsNot Currently0 (1 standard drink = 0.6 oz pure alcohol)PHQ-2AnswerDate RecordedPHQ-2 mvnvb91507/28/2024Housing Stability Vital SignAnswerDate RecordedIn the last 12 [...] In the past 12 months has the [employer], [employer], oil, or water [employer] threatened to shut off services in your home?02/16/2025rea Deprivation IndexAnswerDate RecordedNational Score (1-100), lower number is lower dfvn297107/31/2024State Score (1-10), lower number is lower yogh76807/31/2024Data from: https://www.neighborhoodatlas.medicine.[facility].edu/. Last address used for b[address] [place] 07/31/2024CommentsNoSex and Gender Information ValueDate RecordedSex Assigned at BirthNot on fileLegal VtjHeldqh95/18/2025 1:54 PM ESTGender IdentityNot on fileSexual OrientationNot on filedocumented as of this encounter Functional Status * Are you deaf or do you have serious difficulty hearing?AnswerDate of AjqboqgttoYhinpgQv87/26/2025 2:38 PM Hanane Benitez RN * Are you blind or do you have serious difficulty seeing, even when wearing glasses?AnswerDate of HnywfspkqqDqyhmjWx51/26/2025 2:38 PM Hanane Benitez RN * Do you have serious difficulty walking or climbing stairs?AnswerDate of NqijcbwwpsPohfsvEk69/26/2025 2:38 PM Hanane Benitez RN * Do you have difficulty dressing or bathing?AnswerDate of AssessmentAuthorNo 08/30/2024 2:38 PM Hanane Benitez RN * Because of a physical, mental, or emotional condition, do you have difficulty doing errands alone such as visiting a doctor's office or shopping?AnswerDate of QagsvtjupwOezefhSb55/26/2025 2:38 PM Hanane Benitez RN documented as of this encounter Mental Status * Because of a physical, mental, or emotional condition, do you have serious difficulty concentrating, remembering, or making decisions?AnswerEntry Date LqgeboNc70/26/2025 2:38 PM Hanane Benitez RN documented in this encounter Plan of Treatment DateTypeDepartmentCare Team (Latest Contact Info)Ejzgmlcnlyi61/06/2026 11:00 AM ESTSpecialty Pharmacy [facility]4[address] [place] [address] Pharmacist, Specialtygroup [address] [place] [phone] rufino Mensah (58D) - Rita 03/12/26- [place] 1:15 PM [facility] [address] [place] [address] Mariam Kenny PA-C [address] [place] [address] DX: DVT08/09/2025 10:30 AM ESTAppointment Gastroenterology [address] [place] [address] Abebe Baca MD, PhD [address] [place], [place] [id number] Crohn's disease with complication, unspecified gastrointestinal tract location (...08/17/2025 2:00 PM ESTDistance Health Psychology [address] [place], [place] [id number] Bubba Johnson PSYD [address] [place] [address] follow up 7 sessions 5 of 7documented as of this encounter Goals GoalPatient Goal TypeAssociated ProblemsRecent ProgressPatient-Stated?Author Blood Pressure < 130/80 Blood Tlsihkrq433/67(05/01/2025 1:49 PM EDT)Mariam Cheney PA-C Home Parenteral Nutrition Goal Template Care PlanHome Parenteral Nutrition Problem TemplateIrene Vasquezcumented as of this encounter Visit Diagnoses Diagnosis On total parenteral nutrition (TPN)- Primary Other specified conditions influencing health status documented in this encounter Additional Health Concerns Active ProblemsNoted DateDiagnosed DateHome Parenteral Nutrition Problem Mtixnwwa86/17/2025documented as of this encounter Care Teams Team MemberRelationshipSpecialtyStart DateEnd Date Berna Mike DO [address] [place] [address] Home Parenteral Nutrition ProviderGastroenterology08/08/24 Community Resourse Community Resource02/16/25documented as of this encounter
--- OUTSIDE RECORDS SUMMARY | 2025-07-02 12:22 | XMS_ITS | Encounter Summary ---
Author Organization [facility] Address [address] [place] [address] Care Team Providers Care Drum Carrier Name Role Phone Berna Mike DO Unavailable Source Comments In the event this information is protected by the Federal Confidentiality of Alcohol and Drug AbusePatient Records regulations: The Federal rules restrict any use of the information to criminally investigate or prosecute any alcohol or drug abuse patient.[facility] Encounter Details DateTypeDepartmentCare Team (Latest Contact Info)Sswzsznzvny80/17/2025 Patient Msg HL Provider Adult [address] [place] [address] Provider, [facility] Parenteral Nutrition Manager Pharmaceutical Enrollment Social History Tobacco UseTypesPacks/DayYears UsedDateSmoking Tobacco: NeverPassive Smoke Exposure: CurrentSmokeless Tobacco: Never Passive Exposure Comments:Mitchell pyle smokes out side per pt 02/14/2025 Alcohol UseStandard Drinks/WeekCommentsNot Currently0 (1 standard drink = 0.6 oz pure alcohol)PHQ-2AnswerDate RecordedPHQ-2 pppsu25207/28/2024Housing Stability Vital SignAnswerDate RecordedIn the last 12 [...] or living in a long term (including now)?02/16/2025HC UtilitiesAnswerDate Recorded In the past 12 months has the electric, gas, oil, or water company threatened to shut off services in your home?02/16/2025rea Deprivation IndexAnswerDate RecordedNational Score (1-100), lower number is lower rpwf100407/31/2024State Score (1-10), lower number is lower eejw86807/31/2024Data from: https://www.neighborhoodatlas.medicine.[facility].edu/. Last address used for xwmvzzp[address] [place] 07/31/2024CommentsNoSex and Gender Information ValueDate RecordedSex Assigned at BirthNot on fileLegal HkjUnurky89/18/2025 1:54 PM ESTGender IdentityNot on fileSexual OrientationNot on filedocumented as of this encounter Functional Status * Are you deaf or do you have serious difficulty hearing?AnswerDate of AncktqrtlcGkekypWm28/26/2025 2:38 PM Hanane Benitez RN * Are you blind or do you have serious difficulty seeing, even when wearing glasses?AnswerDate of UqhcqimaksPzxekrJz23/26/2025 2:38 PM Hanane Benitez RN * Do you have serious difficulty walking or climbing stairs?AnswerDate of CawajzvhobVzawnjTm76/26/2025 2:38 PM Hanane Benitez RN * Do you have difficulty dressing or bathing?AnswerDate of AssessmentAuthorNo 08/30/2024 2:38 PM Hanane Bentiez RN * Because of a physical, mental, or emotional condition, do you have difficulty doing errands alone such as visiting a doctor's office or shopping?AnswerDate of TttqpvxdbzAvcmbkDw93/26/2025 2:38 PM Hanane Benitez RN documented as of this encounter Mental Status * Because of a physical, mental, or emotional condition, do you have serious difficulty concentrating, remembering, or making decisions?AnswerEntry Date SdndzaMn25/26/2025 2:38 PM Hanane Benitez RN documented in this encounter Plan of Treatment DateTypeDepartmentCare Team (Latest Contact Info)Ekcvgwhwjyi61/06/2026 11:00 AM ESTSpecialty Pharmacy [facility] [address] [place], [place] [address] [place] [address] Pharmacist, Specialtygroup [address] [place] [id number] rufino Mensah (58D) - Rita 03/12/26- [place] 1:15 PM [facility] Medicine [address] [place] [address] Mariam Kenny PA-C [address] [place] [address] DX: DVT08/09/2025 10:30 AM ESTAppointment Gastroenterology [address] [place] [address] Abebe Baac MD, PhD [address] [place] [address] Crohn's disease with complication, unspecified gastrointestinal tract location (...08/17/2025 2:00 PM ESTDistance Health Psychology [address] [place], [place] [id number] Bubba Johnson PSYD [address] [place] [address] follow up 7 sessions 5 of 7documented as of this encounter Goals GoalPatient Goal TypeAssociated ProblemsRecent ProgressPatient-Stated?Author Blood Pressure < 130/80 Blood Ucdtekni248/67(05/01/2025 1:49 PM EDT)Mariam Cheney PA-C Home Parenteral Nutrition Goal Template Care PlanHome Parenteral Nutrition Problem TemplateKey Vasquezadocumented as of this encounter Visit Diagnoses Not on filedocumented in this encounter Additional Health Concerns Active ProblemsNoted DateDiagnosed DateHome Parenteral Nutrition Problem Stbajqjk10/17/2025documented as of this encounter Care Teams Team MemberRelationshipSpecialtyStart DateEnd Date Berna Mike DO [address] [place] [address] Home Parenteral Nutrition ProviderGastroenterology08/08/24 Community Resourse Community Resource02/16/25documented as of this encounter
--- OUTSIDE RECORDS SUMMARY | 2025-07-02 12:32 | XMS_ITS | CCD ---
Author Organization [facility] Care Team Providers Care Brickmason Helper Name Role Phone No, Physician Unavailable Unavailable No, Physician Primary Care Provider UnavailAustin Kapoor Unavailable JOSEFINA, PHYSICIAN Primary Care Unavailable ASHLEY AL Attending Unavailable ASHLEY AL Admitting Unavailable ASHLEY AL Referring Unavailable NO, PHYSICIAN Primary Care Unavailable Josefina, Physician Primary Care Provider UnavailAustin Kapoor Unavailable Abdiel Smithahim Ali Primary Care Provider Francine Guzman Unavailable Unavailable Austin Dc MD Unavailable [phone] Sarah TALAMANTES, Abdiel Gamez [facility] Francine Ruiz Unavailable Unavailable [...] Attending Unavailable CANDY CARDENAS Attending Unavailable SMITH, MEAODWS MENJIVAR ALI Primary Care Unava ilable SMITH, [...] Care Unava ilable Austin Dc MD Unavailable [phone] Sarah TALAMANTES, Abdiel Patinoahim Ali Primary Care Pro[facility] xavier Thomas PIMENTELW, Francine Unavailable Unavailable JUAN SAHNI Attending Unavailable NO, PHYSICIAN Primary Care Unavailable [facility] Consulting UnavaÁNGEL Michele Admitting Unavailable [...] SCAR MONTANEZ Attending Unavaila ble [employer] [facility], GENER[facility] Consulting Hillary London Sanderson Attending Unavailable [...] Unava ilable DO Ean Jacques Emergency Provider Ambika Dlaia Unavailable Arthur Mcclain Unavailable DO Ambika Dalia A Primary Care Provider DO Ambika Dalia A Attending Provider DO Arthur Mcclain A Attending Provider [phone] Jennifer Brody Unavailable MD Jennifer Brody Attending Provider [phone] Ivonne Martinez Unavailable AppleDO Dalia A Primary Care Provider [phone] DO Arthur Mcclain A Attending Provider [phone] Ambika DO Dalia A Attending Provider Ambika DO Dalia A Primary Care Provider DO Arthur Mcclain A Attending Provider Apple DO Dalia A Primary Care Provider [phone] AppleDO Dalia A Attending Provider Unavailable Primary [...] Care Provider Unavailable Primary Care Provider UnavailMaru Enciso MD Attending Provider [phone] No Pcp, No Pcp Primary Care Provider [...] Provider Apple DO Dalia A Attending Provider [phone] RASHID, KUNZAH Referring Unavailable APPLE, DALIA A [...] Referring Unavailable RASHID, KUNZAH Attending Unavailable KIKO FELIZ, ARMAND Referring Unavailable BRANDAN, MONET Referring Unavailable [...] KIKO FELIZ, ARMAND Referring Unavailable LENTZ, MANDEEPK GARCIA Referring Unavailable FARTUN CARPIO Attending Unavailable SELF Referring Unavailable SOHAM ELSY Attending Unavailable [place]CCA[place], BERNADETTE Referring Unavailable [place], BERNADETTE Referring Unavailable KIKO FELIZ, ARMAND Attending Unavailable SOHAM, ELSY Referring Unavailable SOHAM, ELSY Referring Unavailable LANIE GUILLEN Attending Unavailable SOHAM, ELSY Referring Unavailable YULIANA, TRE Attending Unavailable Allergies Allergy ClassificationReported Allergen(s)Allergy TypeDate of OnsetReaction(s) Facilitycow milk allergenic extract (4 sources)cow milk allergenic extractDrug Xnbgpib73-78-2266OcfwzlyoYkyzOfmntf Dairy (not specified as lactose intolerance) (2 sources)Milk; Translations: [MILK]Food Kqawcsw99-98-9987[facility] Three RepositoryGrains (2 sources)Gluten; Translations: [GLUTEN]Food Mxifvrp87-90-6718Sfig [facility] Three RepositoryWheat gluten extract (4 sources)Wheat gluten extractDrug Rmrujpa85-98-0067DricdrtgJwhgBniztp Work Phone: (20 sources)cow milk allergenic extract; Translations: [MILK]Drug Allergy 05-54-4305LjlsxrrqFjkzWnvnzo (20 sources)Wheat gluten extract; Translations: [GLUTEN]Drug Qgaaawn15-46-2234 DiarrheaMeioSelect Medical [facility] (20 sources)NSAIDs; Translations: [NSAIDS (NON-STEROIDAL ANTI-INFLAMMATORY DRUG)]Drug allergy (disorder)43-61-4116Qvowo: See CommentsSal[facility] (20 sources)Ibuprofen; Translations: [ibuprofen]Drug Qwmcehf37-74-5954Atxcg: See CommentsL[facility] (12 sources)Non-steroidal anti-inflammatory agentPropensity to adverse reactions to hrwt89-37-5052Zornr: See CommentsCAR[facility] (16 sources)Non-steroidal anti-inflammatory agentPropensity to adverse reactions to olbp36-98-8210Vapqy: See CommentsU[facility] Medications Current Medications MedicationDrug Class(es)DatesSig (Normalized)Sig (Original)24 HR upadacitinib 45 MG Extended Release Oral Tablet [Rinvoq] (11 sources)take 45 mg by mouth once dailyRinvoq 45 MG as directed Orally Once a day for 30 days ActiveRinvoq 45 MG as directed Orally Activeacetaminophen 32 mg/ml oral solution (20 sources)Start: 39-73-4423fvhi 650 mg by mouth every six hours as needed acetaminophen (TYLENOL) 650 mg/20.3 mL soln Take 20.3 mL by mouth every 6 hours as needed for pain.Do not exceed 5 doses in 24 hours. 02/23/2025 ActiveStart: 01-02-2025 End: 99-83-6768rbuk 1 dose by mouth uzwj531 mg, ORAL, ONCE, 1 dose, On Wed01/02/25 at 1530Start: 08-07-2024 End: 53-60-5151slif 2 tablets by mouth every six hours as neededacetaminophen (TYLENOL) 500 mg tablet Take 2 tablets by mouth every 6 hours as needed (mild, moderate pain). 30 tablet 08/08/2024 12:15 PM EST 08/07/2024 02/14/2025 Discontinued (Discontinued by Patient)Start: 74-02-7478xtzrpzpmzotts (TYLENOL) tablet 650 mgStart: 85-73-0988yvjwmboaxtkrq (TYLENOL) tablet 650 mgStart: 06-04-2020 End: 74-93-7488kpcr 2 tablets by mouth every six hours as neededacetaminophen (TYLENOL) 500 MG tablet Take 2 (two) tablets (1,000 mg total) by mouth every 6 (six) hours as needed for pain . 30 tablet 0 06/04/2020 06/14/2020 ActiveStart: 05-31-2020 End: 20-07-0894hvnz 1 tablet by mouth every four hours as dozmyj481 mg, Oral, Every 4 hours PRN, mild pain, fever 100.4 F or greater, headaches, Starting 05/31/20 at 0013Start: 05-01-2018 End: 89-53-1799yimt 2 tablets by mouth every four hours as neededacetaminophen (TYLENOL) 325 MG tablet Take 2 (two) tablets (650 mg total) by mouth every 4 (four) hours as needed. 30 tablet 0 05/01/2018 05/11/2018 ActiveStart: 04-30-2018 End: 52-51-6880mrtj 2 tablets by mouth every four hours as needed0.4 ml adalimumab 100 mg/ml auto-injector (20 sources)Tumor Necrosis Factor BlockerStart: 71-02-4281nhbxksdsyi 40 mg/0.4 mL PnKt Indications: Crohn's disease of small intestine without complication (H CC) 160 mg on day 1, 80 mg on day 15, 40 mg on day 29 then 40 mg every 14 days. . 4 kit 1 07/29/2020 Active End: 94-17-6265uteqky 40 mg by subcutaneous injection onceadalimumab (HUMIRA) 40 mg/0.8 mL injection Inject 40 mg under the skin once. 0 08/18/2023 Discontinued (Therapy completed)200 actuat albuterol 0.09 mg/actuat metered dose inhaler (1 source)beta2-Adrenergic AgonistStart: 09-10-2018 End: 70-71-6201waqc 2 puff(s) by inhalation every six hours as needed for wheezingalbuterol 90 mcg/actuation inhaler Indications: Bronchitis , Cough Inhale 2 (two) puffs every 6 (six) hours as needed for wheezing . 6.7 g 0 09/10/2018 09/17/2018 Activealteplase (CATHFLO) 2 mg injection (1 source)Start: 08-31-2024 End: 27-27-6043nswmjlryw (CATHFLO) 2 mg injection Indications: Occlusion of peripherally inserted central catheter(PICC) line, initial encounter (HCC) 4 mL by INTRALUMINAL route one time only for 1 dose. Instill per protocol 2 mg/2 ml into each lumen of double lumen PICC line 4 mL 08/31/2024 08/31/2024 Active amitriptyline hydrochloride 25 mg oral tablet (20 sources)Tricyclic AntidepressantStart: 05-07-2024 End: 88-03-2851hdhr 1 tablet by mouth once dailyAmitriptyline 25 mg tablet Active 25 MG PO Daily April 30, 2025 12:00am Complies with drug therapy apixaban 5 mg oral tablet (20 sources)Factor Xa InhibitorStart: 10-01-2024 End: 54-92-4927nmoy 1 tablet by mouth every twelve hoursapixaban (ELIQUIS) 5 mg tab(s) Take 1 tablet by mouth every 12 hours. Please start Eliquis after fin lennieing Lovenox prescription. Patient should start on October 01, 2024. 60 tablet 1 08/30/2024 3:08 PMEST 10/01/2024 11/30/2024 ActiveStart: 09-06-2024 End: 05-71-3811cjym 2 tablets by mouth twice daily, then take 1 tablet by mouth twice dailyapixaban (ELIQUIS) 5 mg tab(s) Take 2 tablets (10 mg) by mouth twice daily for 7 days. Then take 1 tablet (5 mg) by mouth twice daily for 23 days 74 tablet 09/06/2024 11/03/2024 DiscontinuedStart: 08-29-2024 End: 19-13-2002qygk 2 tablets by mouth twice daily, then take 1 tablet by mouth twice dailyapixaban (ELIQUIS DVT-PE TREAT 30D START) 5 mg (74 tabs) Take 2 tablets (10 mg) by mouth twice daily for 7 days. Then take 1 tablet (5 mg) by mouth twice daily for 23 days 74 tablet 08/29/2024 08/29/2024 Discontinued azaTHIOprine 50 mg oral tablet (20 sources)Purine AntimetaboliteStart: 09-02-2020 End: 35-23-9462xegu 2 tablets by mouth once dailyazaTHIOprine (IMURAN) 50 mg tablet Take 2 (two) tablets (100 mg total) by mouth daily . 60 tablet 11 01/23/2021 02/22/2021 ActiveStart: 06-18-2020 End: 84-44-1268gcpFDRYfehku (IMURAN) 50 mg tabletazithromycin 250 mg oral tablet (1 source)Macrolide AntimicrobialStart: 09-10-2018 End: 08-19-5187lqumuqxyrzny (ZITHROMAX) 250 MG tablet Indications: Bronchitis , Cough Take 2 tablets (500 mg) on Day 1, followed by 1 tablet (250 mg) once daily on Days 2 through 5. . 6 tablet 0 09/10/2018 09/15/2018 Activebenzonatate 100 mg oral capsule (1 source)Non-narcotic AntitussiveStart: 09-10-2018 End: 12-41-9494vxcj 1 capsule by mouth every six hours as neededbenzonatate (TESSALON PERLES) 100 MG capsule Indications: Bronchitis , Cough Take 1 (one) capsule (100 mg total) by mouth every 6 (six) hours as needed . 20 capsule 0 09/10/2018 09/17/2018 Activebisacodyl 10 mg rectal suppository (2 sources)Stimulant LaxativeStart: 81-54-3967Mthtx: 04-03-2024 End: 34-52-1807bhkcflkdq 5 MG EC tablet Take as directed for bowel prep/colonoscopy 4 tablet 04/03/2024 05/09/2024iscontinued (Stop Taking at Discharge)budesonide 3 mg delayed release oral capsule (5 sources)CorticosteroidStart: 08-08-2024 End: 22-19-4310mrit 1 capsule by mouth every twenty-four hoursbudesonide, enteric coated (ENTOCORT EC) 3 mg 24 hr capsule Take 3 capsules by mouth once daily for23 doses. 69 capsule 08/08/2024 12:15 PM EST 08/08/2024 08/31/2024 Activecephalexin 500 mg oral capsule (2 sources)Cephalosporin AntibacterialStart: 77-44-3164qdrb 1 capsule by mouth every eight hoursCephalexin 500 MG 1 capsule Orally every 8 hrs for 7 days May, Activecholecalciferol 0.025 mg oral capsule (20 sources)Vitamin DStart: 46-46-9661gzja 1 capsule by mouth once daily Cholecalciferol (Vitamin D3) 25 mcg (1,000 unit) capsule Active 25 MCG PO Daily April 30, 2025 12:00am Complies with drug therapyStart: 54-83-3077eklz 1 tablet by mouth once dailyCholecalciferol (VITAMIN D) 25 MCG TABS Take 1 tablet by mouth daily 60 tablet 01/29/2024 ActiveCholecalciferol, Vitamin D3, (VITAMIN D) 25 mcg (1,000 unit) cap Take 1,000 Units by mouth once daily. ActivediazePAM 2 mg oral tablet (8 sources)BenzodiazepineStart: 02-23-2025 End: 91-03-6853qwuk 1 tablet by mouth every six hours as needed for paindiazePAM (VALIUM) 2 mg tablet Indications: Postoperative pain Take 1 tablet by mouth every 6 hours as needed (pain) for up to 7 days. 28 tablet 02/23/2025 2:47 PM EDT 02/23/2025 03/02/2025 ActiveStart: 08-30-2024 End: 47-36-6586qznnnOZY (VALIUM) 5 mg tablet Indications: Post-op pain Take 1 tablet by mouth every 6 hours as needed for muscle spasm or pain for up to 7 days. Do not take oxycodone and valium at the same time. Please spread out these medications by 2-3 hours. 28 tablet 08/30/2024 3:08 PM EST 08/30/2024 ActiveStart: 92-02-9766pdph 5 mg by mouth every six hours as needed5 mg, Oral, EVERY 6 HOURS PRN, Starting on Wed05/03/24 at 1021, Until Discontinued, Anxiety, Agitation, Muscle spasmsStart: 05-02-2024 End: 41-12-3101rrra 1 dose by mouth once5 mg, Oral, ONCE, 1 dose, On Wed05/02/24 at 1200dicyclomine hydrochloride 10 mg oral capsule (20 sources)AnticholinergicStart: 46-41-7639bzit 1 capsule by mouth three times dailydicyclomine (BENTYL) 10 MG capsule Take 1 capsule by mouth 3 times daily 120 capsule 3 05/09/2024 ActiveStart: 01-28-2024 End: 41-05-2957hpjb 2 capsules by mouth three times daily as needed for pain and muscle spasmsdicyclomine (BENTYL) 10 MG capsule Take 2 capsules by mouth 3 times daily as needed (for abdominal pain and spasms , before meals) 120 capsule 3 01/28/2024 05/09/2024 Discontinued (Stop Taking at Discharge)Start: 15-90-1010yzup 2 capsules by mouth four times daily as neededDicyclomine 10 mg capsule Active 20 MG PO Four times daily as needed December 21, 2023 12:00am Complies with drug therapyStart: 63-29-6558okrt 20 mg by mouth four times daily Dicyclomine Active 20 MG PO Four times daily December 21, 2023 12:00amStart: 06-04-2020 End: 02-35-4140fsub 1 capsule by mouth four times daily [...] mg oral capsule (1 source)Start: 05-09-2024 End: 81-98-4504vglc 1 capsule by mouth twice dailydocusate sodium (COLACE) 100 MG capsule Take 1 capsule by mouth 2 times daily for 5 days 10 caljvdy6205/09/2024 05/14/2024 Activedoxycycline hyclate 100 mg oral capsule (1 source)Tetracycline-class DrugStart: 08-18-2023 End: 37-39-5144kkft 1 capsule by mouth in the morning, [...] prefilled syringe (20 sources)Low Molecular Weight HeparinStart: 69-18-1908znjinr 1 mg by subcutaneous injection once dailyEnoxaparin 100 mg/mL syringe Active MG SUBCUT Daily April 30, 2025 12:00am Complies with drug therapyStart: 02-23-2025 inject 0.975 mL by subcutaneous injection once dailyenoxaparin (LOVENOX) 100 mg/mL syrg Inject 0.975 mL subcutaneously once daily. Please inject full co ntents of syringe daily. 30 each 1 02/23/2025 ActiveStart: 10-20-2024 End: 60-11-3132ipinyr 0.625 mL by subcutaneous injection once dailyenoxaparin (LOVENOX) 80 mg/0.8 mL Indications: Acute deep vein thrombosis (DVT) of axillary vein ofleft upper extremity (HCC) , Anticoagulation management encounter , Acute deep vein thrombosis (DVT) of brachial vein of right upper extremity (HCC) Inject 0.625 mL subcutaneously once daily. Inject entire contents of one(1) syringe 12/29/2024 02/27/2025 SuspendedStart: 08-31-2024 End: 22-52-5485dnpczs 72.5 mg by subcutaneous injection every twenty-four hours enoxaparin (LOVENOX) 80 mg/0.8 mL Inject 0.7 mL subcutaneously every 24 hours. Please eject 0.1 mL of fluid from syringe into trash. Inject the remaining fluid into the subcutaneous tissue. 24 mL 08/30/2024 3:08 PM EST 08/31/2024 09/30/2024 ExpiredStart: 08-29-2024 End: 28-31-8849owxndf 47.5 mg by subcutaneous injection every twelve [...] prior to any invasive procedure.Start: 05-31-2020 End: 92-64-2939zsuepz 40 mg by subcutaneous injection once daily40 mg, Subcutaneous, Daily, First dose on Wed05/31/20 at 0800 Administer in abdomen unless otherwise directed by prescriber. Notify physician if patient refuses. Indication: VTE ProphylaxisStart: 04-30-2018 End: 51-68-1898mukzryu contrast (will be provided with radiology test) (5 sources)Start: 09-28-2024 End: 82-75-2709offlgec contrast (will be provided with radiology test) For CT ABD/PEL W IVCON Routine order Administer, As Directed One Time Only, via Oral, Rectal, both Oral and Rectal, Enteric Tube, Stoma or Indwelling Catheter, Enteric Contrast as designated per enteric contrast guidelines 1 Each 09/28/2024 09/29/2024 ActiveStart: 09-28-2024 End: 80-15-1975ssbddgn contrast (will be provided with radiology test) For CT ENTEROGRAPHY W IVCON order Administer, As Directed One Time Only, via Oral, Rectal, both Oral and Rectal, Enteric Tube, Stoma or Indwelling Catheter, Enteric Contrast as designated per enteric contrast guidelines. 1 Each 09/28/2024 09/28/2024 DiscontinuedStart: 08-04-2024 End: 29-68-7148oeunnuv contrast (will be provided with radiology test) Indications: Crohn's disease of both small and large intestine with abscess (HCC) For CT ENTEROGRAPHY W IVCON order Administer, As Directed OneTime Only, via Oral, Rectal, both Oral and Rectal, Enteric Tube, Stoma or Indwelling Catheter, Enteric Contrast as designated per enteric contrast guidelines. 1 Each 08/04/2024 08/05/2024 Expiredertapenem (INVANZ) infusion (1 source)Start: 07-29-2024 End: 27-24-8610lxigqtrlj (INVANZ) infusion Infuse 1,000 mg intravenously every 24 hours for 28 days 28 days then get a repeat CTA ;look for resolution of the abscess Cbc diff creat weekly - no ;line draws 28 g 07/29/2024 08/26/2024 Active ethinol (1 source)Start: 47-11-5097Ycgxx (1 source)Start: 35-05-5735cusjojrbbut 150 mg oral tablet (6 sources)Azole AntifungalStart: 65-69-0809Hjbbkocisny 150 MG 1 tablet Orally once, can repeat dosage in 2-3 days if symptoms not improved for2 days May, ActiveStart: 06-12-2020 End: 94-19-3630vwbh 1 tablet by mouth once dailyfluconazole (Diflucan) 200 MG tablet Indications: Yeast infection Take 1 (one) tablet (200 mg total) by mouth daily for 10 days . 10 tablet 0 06/12/2020 06/22/2020 ActivehydrOXYzine hydrochloride 25 mg oral tablet (20 sources)AntihistamineStart: 07-21-2024 End: 71-72-4567swoy 25 mg by mouth once daily as needed for sleep25 mg, Oral, NIGHTLY PRN, Starting on Wed07/21/24 at 2100, Until 08/20/24 at 2058, sleep Start: 12-27-2023 End: 08-50-3936ajeq 1 tablet by mouth every six hours as neededhydrOXYzine (ATARAX) 25 mg tablet Take 1 tablet (25 mg total) by mouth every 6 (six) hours as needed for itching. 12 tablet 12/27/2023 04/22/2024 DiscontinuedStart: 02-16-2023 End: 31-75-1677Nvuruadodos Hcl 25 mg tablet Discontinued 12.5 MG PO Four times daily as needed for Anxiety February 16, 2023 12:00am April 30, 2025 3:56pm Start: 95-06-9985jhjv 12.5 mg by mouth four times dailyHydroxyzine [...] with radiology test) (5 sources)Start: 09-28-2024 End: 38-32-2946ty contrast (will be provided with radiology test) [...] Each 09/28/2024 09/29/2024 Active Start: 09-28-2024 End: 63-04-6371pr contrast (will be provided with radiology test) [...] 1 Each 09/28/2024 09/28/2024 DiscontinuedStart: 08-04-2024 End: 69-85-2495jg contrast (will be provided with radiology test) [...] sources)Nonsteroidal Anti-inflammatory Drug, Cyclooxygenase InhibitorStart: 07-29-2024 End: 14-01-583156 mg, IntraVENous, EVERY 6 HOURS PRN, Starting on 07/29/24 at 0802, Until Wilma 08/03/24 at 0801, Pain Moderate (4-6), Do not administer for more than 5 daysStart: 07-28-2024 End: mg, IntraVENous, ONCE, 1 dose, On 07/28/24 at 1745, Do not administer for more than 5 daysStart: 05-31-2020 End: 16-77-5287wbmgsucjs (TORADOL) injection 15 mgLactobacillus acidophilus (20 sources)take 1 capsule by mouth once dailyLactobacillus acidophilus (PROBIOTIC ACIDOPHILUS ORAL) Take 1 capsule by mouth once daily Suspendedtake 1 capsule by mouth once dailyLactobacillus acidophilus (PROBIOTIC ACIDOPHILUS ORAL) Take 1 capsule by mouth once daily Activelidocaine 0.04 mg/mg medicated patch (3 sources)Antiarrhythmic, Amide Local AnestheticStart: 02-24-2025 End: 06-59-6214owlqtdhvg (SALONPAS) 4 % patch Apply 2 patches as directed once daily for 5 days. 10 patch 02/23/2025 2:47 PM EDT 02/24/2025 03/01/2025 Active Start: 06-05-2024 End: 88-10-1294mczj 1 dose intravenously once daily1 mL, IntraDERmal, ONCE PRN, 1 dose, Starting on 06/05/24 at 0836, Until 06/05/24 at 0905, IVstart, Pre-op (day of surgery)methocarbamol 500 mg oral tablet (7 sources)Muscle RelaxantStart: 02-23-2025 End: 04-54-6891kbdb 1 tablet by mouth three times daily as neededmethocarbamol (ROBAXIN) 500 mg tablet Indications: Postoperative pain Take 1 tablet by mouth three times a day as needed for up to 7 days. 21 tablet 02/23/2025 2:47 PM EDT 02/23/2025 03/02/2025 ActiveStart: 04-30-2018 End: 53-40-3568ufge 1 tablet by mouth three times daily as needed for muscle spasmsmethocarbamol (ROBAXIN) 500 MG tablet Take 1 (one) tablet (500 mg total) by mouth 3 (three) times aday as needed for muscle spasms. 30 tablet 0 05/01/2018 05/11/2018 ActivemethylPREDNISolone sodium succ (SOLU-MEDROL) 40 mg in sterile water 1 mL injection (1 source)Start: 92-78-985693 mg, IntraVENous, DAILY, First dose on Wed05/09/24 at 1500, Reconstitute each 40 mg vial with 1 mL of diluent.midodrine hydrochloride 10 mg oral tablet (20 sources)alpha-Adrenergic AgonistStart: 07-30-2024 End: 20-72-0738eyrw 1 tablet by mouth three times daily at mealtimemidodrine (PROAMATINE) 10 MG tablet Take 1 tablet by mouth 3 times daily (with meals) 90 tablet 3 07/30/2024 ActiveStart: 81-34-8403assm 10 mg by mouth once at ahmprzk46 mg, Oral, Once, 1 dose, On Wed07/29/24 at 0630, Do not give after 1800 or within 4 hrs of bedtime.Start: 13-95-6681gauk 10 mg by mouth three times daily at xehnltmm27 mg, Oral, 3 TIMES DAILY WITH MEALS, First dose (after last modification) on Wed07/27/24 at 1200,Until Discontinued, Do not give after 1800 or within 4 hrs of bedtime.Start: 07-25-2024 End: 87-77-8990sgqs 5 mg by mouth three times daily at mealtime5 mg, Oral, 3 TIMES DAILY WITH MEALS, First dose on Wed07/25/24 at 1300, Until Discontinued, Do notgive after 1800 or within 4 hrs of bedtime.naloxone hydrochloride 40 mg/ml nasal spray (15 sources)Opioid AntagonistStart: 22-64-8287rawnckmk 4 mg/actuation nasal spray (NARCAN) Use 1 spray in one nostril as needed for overdose. Mayrepeat every 2 to 3 min in alternating nostrils until medical assistance is available 2 each 1 02/23/2025 2:47 PM EDT 02/23/2025 Activenitrofurantoin, macrocrystals 25 mg / nitrofurantoin, monohydrate 75 mg oral capsule (2 sources)Nitrofuran AntibacterialStart: 48-67-8942yqrx 1 capsule by mouth every twelve hoursMacrobid 100 MG 1 capsule with food Orally every 12 hrs for 5 days May, Activeondansetron 4 mg disintegrating oral tablet (20 sources)Serotonin-3 Receptor AntagonistStart: 11-78-5031rqxi 1 tablet by mouth every twelve hours as neededOndansetron 4 mg tablet,disintegrating Active 4 MG PO Every 12 hours as needed April 30, 2025 12:00am Complies with drug therapyStart: 77-91-7043zslc 1 tablet by mouth every twelve hours as needed for nauseaondansetron orally disintegrating (ZOFRAN ODT) 4 mg disintegrating tablet Indications: Crohn's disease of both small and large intestine with abscess (HCC) , Nausea Take 1 tablet by mouth every 12 hours as needed for nausea/vomiting. 60 tablet 2 03/16/2025 ActiveStart: 07-19-2024 End: mg, IntraVENous, ONCE, 1 dose, On Wed07/19/24 at 1915Start: 13-17-8614vlid 1 tablet by mouth three times daily as needed for nausea ondansetron (ZOFRAN-ODT) 4 MG disintegrating tablet Take 1 tablet by mouth 3 times daily as needed for Nausea or Vomiting 21 tablet 05/24/2024 ActiveStart: 89-86-2368bxot 1 tablet by mouth every twelve hours as needed for nausea ondansetron (ZOFRAN) 4 MG tablet Take 1 tablet by mouth every 12 hours as needed for Nausea or Vomiting 10 tablet 05/09/2024 ActiveStart: 05-01-2024 End: mg, IntraVENous, ONCE, 1 dose, On Wed05/01/24 at 1445Start: 47-61-7071fbvo 1 tablet by mouth three times daily as needed for nausea ondansetron (ZOFRAN-ODT) 4 MG disintegrating tablet Take 1 tablet by mouth 3 times daily as needed for Nausea or Vomiting 21 tablet 0 11/22/2023 ActiveStart: 11-22-2023 End: 46-06-3312zgzjeldpcqk (ZOFRAN) injection 4 mgStart: 11-22-2023 End: 14-78-7441xwbekpukowh (ZOFRAN) 4 MG/2ML injectionStart: 06-18-2020 End: 23-54-7737hunx 1 tablet by mouth every eight hours as neededondansetron orally disintegrating (ZOFRAN ODT) 4 mg disintegrating tablet Take 1 tablet by mouth every 8 hours as needed for nausea/vomiting (first line). 30 tablet 09/28/2024 ActiveStart: 06-04-2020 End: 26-06-7919ssol 1 tablet by mouth every eight hours as neededondansetron (ZOFRAN) 8 MG tablet Take 1 (one) tablet (8 mg total) by mouth every 8 (eight) hours asneeded for nausea . 20 tablet 0 06/04/2020 ActiveStart: 05-30-2020 End: 46-32-2137dard 4 mg intravenous route every six hours as neededondansetron (ZOFRAN) injection 4 mgtake 1 tablet by mouth every eight hours as needed for nausea and vomitingondansetron (ZOFRAN) 4 mg tablet Take 1 tablet (4 mg total) by mouth every 8 (eight) hours as needed for nausea or vomiting. Active ondansetron (ZOFRAN-ODT) disintegrating tablet 4 mg (3 sources)Start: 05-27-7529qnjlusknsno (ZOFRAN-ODT) disintegrating tablet 4 mg Start: 70-00-0756ysnmmbwwjmq (ZOFRAN-ODT) disintegrating tablet 4 mgStart: 04-30-2018 End: 01-73-9569yjop 1 tablet by mouth every six hours as neededondansetron (ZOFRAN-ODT) disintegrating tablet 4 mgopium tincture 100 mg/ml oral solution (11 sources)Start: 10-25-2024 End: 36-64-3128vgck 0.3 mL by mouth every four hours as neededopium tincture 10 mg/mL (morphine) Indications: High output ileostomy (HCC) Take 0.3 mL by mouth every 4 hours as needed for up to 30 days as directed. 54 mL 11/10/2024 7:37 PM EDT 11/07/2024 12/10/2024 Activepantoprazole 40 mg delayed release oral tablet (20 sources)Proton Pump InhibitorStart: 02-16-2023 End: 46-10-3071uoov 1 tablet by mouth once daily before breakfastpantoprazole (PROTONIX) 40 MG tablet Take 1 tablet by mouth every morning (before breakfast) 30 tablet 3 05/10/2024 ActiveStart: 05-31-2020 End: 68-62-4323zzpbsebzwhzd (PROTONIX) injection 40 mgpantoprazole (PROTONIX) 40 mg in sodium chloride (PF) 0.9 % 10 mL injection (2 sources)Start: mg, IntraVENous, DAILY, First dose on Wilma 07/20/24 at 0900, Reconstitute each 40 mg vial with 10 mL of 0.9% sodium chloride and administer each 40 mg vial over at least 2 minutes.Start: 05-01-2024 End: 21-98-544262 mg, IntraVENous, DAILY, First dose on 05/01/24 at 2100, Reconstitute each 40 mg vial with 10mL of 0.9% sodium chloride and administer each 40 mg vial over at least 2 minutes.PN-Adult 2-in-1 Central Line (Standard) (7 sources)Start: 07-29-2024 End: 54-59-0150BbrzcCRYhrq, at 55 mL/hr, Administer over 24 Hours, CONTINUOUS TPN, Starting on 07/29/24 at 1800, For 24 hoursStart: 07-28-2024 End: 78-66-6481JgmehXOGzcc, at 55 mL/hr, Administer over 24 Hours, CONTINUOUS TPN, Starting on Wed07/28/24 at 1800, For 24 hoursStart: 07-27-2024 End: 49-43-8800CjhjrAFSwmn, at 51.3 mL/hr, Administer over 24 Hours, CONTINUOUS TPN, Starting on Wilma 07/27/24 at 1800, For 24 hoursStart: 07-26-2024 End: 12-86-7073XazmwGMPgrw, at 51.3 mL/hr, Administer over 24 Hours, CONTINUOUS TPN, Starting on Wed07/26/24 at 1800, For 24 hoursStart: 07-25-2024 End: 37-76-8276WcdawXDWvti, at 50.8 mL/hr, Administer over 24 Hours, CONTINUOUS TPN, Starting on Wed07/25/24 at 1800, For 24 hoursStart: 07-24-2024 End: 29-79-6373PifzlUJShpz, at 50 mL/hr, Administer over 24 Hours, CONTINUOUS TPN, Starting on Wed07/24/24 at 1800, For 24 hoursStart: 07-23-2024 End: 93-39-8923CegoxNKGubl, at 41.7 mL/hr, Administer over 24 Hours, CONTINUOUS TPN, Starting on Wed07/23/24 at 1800, For 24 hourspolyethylene glycol 3350 01442 mg powder for oral solution (5 sources)Osmotic LaxativeStart: 43-48-1052Lvadl: 04-03-2024 End: 52-40-3730sgvaoahnwywu glycol (MIRALAX) 17 GM/SCOOP powder Take per bowel prep instructions 238 g 04/03/2024 05/09/2024 Discontinued (Stop Taking at Discharge)Start: 03-31-2024 End: 18-03-3622viyoakntttcb glycol (GLYCOLAX) 17 GM/SCOOP powder Dispense 4 Dulcolax tablets with this prescription. Use as directed by following your patient instructions given by your physician. 255 g 03/31/2024 06/05/2024 Discontinued (Therapy completed)Potassium Chloride (3 sources)Start: 07-19-2024 End: 08-18-5021qxjhbckqn chloride (KLOR-CON M) extended release tablet 40 mEq Start: 44-87-9381hvnsvwcxd chloride (KLOR-CON M) extended release tablet 40 mEq Start: 06-01-2020 End: 68-43-3287jtfmglrcv chloride SA (K-DUR,KLOR-CON) CR tablet 40 mEqpredniSONE 20 mg oral tablet (20 sources)Start: 05-09-2024 End: 46-00-4858uahz 1 tablet by mouth twice dailypredniSONE (DELTASONE) 20 MG tablet Take 1 tablet by mouth 2 times daily for 5 days 10 tablet 1 05/09/2024 05/14/2024 ActiveStart: 33-05-8410jmho 40 mg by mouth once dailyPrednisone Active 40 MG PO Daily February 16, 2023 12:00amStart: 12-23-2022 End: 85-40-3488hfqb 2 tablets by mouth once dailyPrednisone 20 mg tablet Discontinued 40 MG PO Daily February 16, 2023 12:00am April 30, 2025 4:04pm Start: 53-93-4051axaf 1 tablet by mouth every twenty-four hourspredniSONE [...] days Dec, Not-TakingStart: 12-23-2022 Start: 06-18-2020 End: 62-30-8224flfdnfHPZZ (DELTASONE) 10 MG tablet Indications: Crohn's disease [...] tablet 0 06/18/2020 08/06/2020 ActiveStart: 06-04-2020 End: 83-32-7487jyzz 2 tablets by mouth once dailypredniSONE (DELTASONE) 20 MG tablet Take 2 (two) tablets (40 mg total) by mouth daily Please call Dr. Cardenas to discuss tapering and stopping prednsone. for 14 days . 28 tablet 0 06/04/2020 06/18/2020Discontinued (Dose adjustment)Start: 03-01-2012 End: 09-78-4414emzpftMDKX (DELTASONE) 10 MG tabletStart: 18-68-6376nkemqoMVNL (DELTASONE) 10 MG tablettake 3 tablets by mouth every twenty-four hours predniSONE 20 MG 3 tablets Orally once a day for 28 days Activepsyllium 400 mg oral capsule (20 sources)Start: 10-25-2024 End: 00-99-5638tmojygzs husk (METAMUCIL) 0.4 gram cap Take 2 capsules by mouth three times a day. 90 capsule 10/25/2024 11/24/2024 Activetake 1 dose by mouth once dailypsyllium (METAMUCIL FIBER SINGLES) 3.4 gram packet Take 1 packet by mouth once daily. SuspendedRINVOQ 30 mg ER tablet (2 sources)Start: 81-24-9839JGECQA 30 mg ER tablet 08/16/2023 ActiveStart: 42-69-7753kxpu 1 tablet by mouth once dailyRINVOQ 30 mg ER tablet TAKE 1 TABLET BY MOUTH EVERY DAY 0 08/16/2023 ActiveRisankizumab-Rzaa (1 source)Start: 95-96-2026Ncozqgpwnwnx-Rzaa (Skyrizi) 360 mg/2.4 mL (150 mg/mL) wearable injector Active 150 MG SUBCUT EVERY 8 WEEKS April 30, 2025 12:00am Complies with drug therapyrisankizumab-rzaa (SKYRIZI) 360 mg/2.4 mL (150 mg/mL) wearable injector (13 sources)Start: 49-13-5532bptcaxjcfovd-rzaa (SKYRIZI) 360 mg/2.4 mL (150 mg/mL) wearable injector Indications: Crohn's disease of small and large intestines with complication (HCC) Inject 360 mg subcutaneously every 8 weeks. S tart 4 weeks after the last infusion dose. 2.4 mL 2 03/02/2025 Activesimethicone 125 mg chewable tablet (1 source)Start: 65-03-1817wunx 1 tablet by mouth every six hours as needed Simethicone (Gas Relief Extra Strength) 125 mg tablet,chewable Active 125 MG PO Every 6 hours as needed April 30, 2025 12:00am Complies with drug arwwsbx73 ml sodium chloride 4.5 mg/ml injection (20 sources)Start: 19-05-4798Jxtsvi Chloride 0.45 % 0.45 % parenteral solution Active IV April 30, 2025 12:00am Complies with drug therapyStart: 07-29-2024 End: mL (9.54 mL/kg), IntraVENous, at 247.9 mL/hr, Administer over 121 Minutes, ONCE, On Wed07/29/24at 0230, For 1 doseStart: 07-28-2024 End: 91-15-7308VthpxPZMyhn, at 100 mL/hr, CONTINUOUS, Starting on Wed07/28/24 at 1315Start: 07-25-2024 End: mL (10.4 mL/kg), IntraVENous, at 247.9 mL/hr, Administer over 121 Minutes, ONCE, On Wed07/25/24at 1015, For 1 doseStart: 40-10-7175bslb 20 mL intravenously every hourIntraVENous, at 5-250 [...] Wed06/05/24 at 0900, Pre-op (day of surgery)Start: 44-29-7706lqku 20 mL intravenously every hourIntraVENous, at 5-250 [...] mL/lumen, Pre-op (day of surgery)Start: 05-01-2024 End: 01-79-6679MencxCGFrey, at 50 mL/hr, CONTINUOUS, Starting on Wed05/01/24 at 2100Start: 04-85-1673ujjm 20 mL intravenously every hourIntraVENous, at 5-250 [...] Midline or Central Line = 20 mL/lumenStart: 19-89-11780-40 mL, IntraVENous, PRN, Starting on Wed05/01/24 at [...] at 1445, For 1 doseStart: 05-30-2020 End: 77-99-2593vcziue chloride 0.9 % (NS) infusion - ADS Override Scau520 ml soybean oil 200 mg/ml injection (1 source)Start: 33-84-1412624 mL, IntraVENous, at 21 mL/hr, Administer over 12 Hours, DAILY, First dose on Wed07/23/24 at 1800, Use 1.2 micro filter. USE CAUTION IF PATIENT USING PROPOFOL.Sucralfate (Carafate) 100 mg/mL suspension (2 sources)Start: 62-33-2978rghm 1 mL by mouth four times daily as needed Sucralfate (Carafate) 100 mg/mL suspension Active 10 ML PO Four times daily as needed December 20, 2023 11:00pmStart: 49-96-0777fihj 1 mL by mouth four times dailySucralfate (Carafate) 100 mg/mL suspension Active 10 ML PO Four times daily December 21, 2023 12:00amTPN (1 source)Start: 31-86-8022IIK Active IV Daily at bedtime April 30, 2025 12:00am via Reece catheter Complies with drug therapyvitamin b12 0.5 mg oral tablet (1 source)Vitamin G67Cspfl: 05-08-2024 End: ,000 mcg, Oral, DAILY, 7 doses, First dose on 05/08/24 at 1300, Last dose on 05/14/24 at 0900 Completed/Discontinued Medications MedicationDrug Class(es)DatesSig (Normalized)Sig (Original)acetaminophen 325 mg / HYDROcodone bitartrate 5 mg oral tablet (12 sources)Opioid AgonistStart: 07-24-2022 End: 97-20-1854drti 1 tablet by mouth three times daily as needed for pain Hydrocodone-Acetaminophen 5-325 mg tablet Discontinued 1 TAB PO Three times daily as needed for pain 9 3 0 July 24, 2022 February 16, 2023 6:51am Fracture of right wristStart: 04-30-2018 End: 66-63-1392hizo 1 tablet by mouth every six hours as neededacetaminophen 325 mg / oxyCODONE hydrochloride 5 mg oral tablet (3 sources)Opioid AgonistStart: 07-27-2024 End: tablet, Oral, EVERY 4 HOURS PRN, Starting on Wed07/28/24 at 1722, Until Discontinued, Pain Severe(7-10), Maximum dose of acetaminophen is 4000 mg from all sources in 24 hours.Start: 05-09-2024 End: 79-80-9943lbtHIPNUT-acetaminophen (PERCOCET) 5-325 MG per tablet Indications: Crohn's [...] solution (2 sources)Anticholinergic, beta2-Adrenergic AgonistStart: 09-10-2018 End: 69-51-0103lnkkbufrcvk-albuterol (DUO-NEB) 0.5-2.5 mg/3 ml nebulizer solution 3 mLStart: 09-10-2018 End: 14-47-0301xixlbaybxeh-albuterol (DUO-NEB) 0.5-2.5 mg/3 ml nebulizer solution 3 mLalbuterol 90 mcg/actuation inhaler (3 sources)Start: 09-10-2018 End: 72-49-7922zubv 2 puff(s) by inhalation every six hours as needed for wheezingalbuterol 90 mcg/actuation inhaler Indications: Bronchitis , Cough Inhale 2 (two) puffs every 6 (six) hours as needed for wheezing . 6.7 g 0 09/10/2018 06/19/2020 DiscontinuedStart: 58-79-9552rlds 2 puff(s) by inhalation every six hours as needed for wheezingalbuterol 90 mcg/actuation inhaler Indications: Bronchitis , Cough Inhale 2 (two) puffs every 6 (six) hours as needed for wheezing . 6.7 g 0 09/10/2018 Activeamoxicillin 875 mg / clavulanate 125 mg oral tablet (3 sources)Penicillin-class AntibacterialStart: 05-09-2024 End: 58-28-9972asvl 1 tablet by mouth twice dailyamoxicillin-clavulanate (AUGMENTIN) 875-125 MG per tablet Take 1 tablet by mouth 2 times daily for 14 days 28 tablet 05/09/2024 05/23/2024 ExpiredStart: 04-22-2024 End: 75-52-2041fdal 1 tablet by mouth once in the [...] Cholinergic Muscarinic Antagonist, Antidiarrheal Start: 08-30-2024 End: 70-59-1746svsk 2 tablets by mouth once at bedtimediphenoxylate-atropine (LOMOTIL) 2.5-0.025 mg per tablet Indications: High output ileostomy (HCC) Take 2 tablets by mouth before meals and at bedtime for 90 days. 240 tablet 2 10/25/2024 Suspendedbarium sulfate (READI-CAT 2) 2 % suspension 450 mL (1 source)Start: 07-19-2024 End: 31-29-7163nxlm 1 dose by mouth yqrq401 mL, Oral, IMG ONCE PRN, 1 dose, Starting on Wed07/19/24 at 1725, Until Wed07/19/24 at 1727, Otherbenzocaine 140 mg/ml / butamben 20 mg/ml / tetracaine 20 mg/ml mucosal spray (1 source)Dominga Local Anesthetic, Standardized Chemical AllergenStart: 07-21-2024 End: 21-49-3074ndzmr 1 dose topically once1 spray, Topical, ONCE, 1 dose, On Wed07/21/24 at 2045, Apply to throat and nares for ngt placement.calcium chloride 0.0014 meq/ml / potassium chloride 0.004 meq/ml / sodium chloride 0.103 meq/ml / sodium lactate 0.028 meq/ml injectable solution (2 sources)Start: 07-19-2024 End: 16-16-5567ZedpwWSRrge, at 125 mL/hr, CONTINUOUS, Starting on Wed07/19/24 at 2115Start: 11-22-2023 End: 74-78-5297exwaoqso ringers bolus 1,000 mLcalcium polycarbophil 625 mg oral tablet (20 sources)Start: 08-30-2024 End: 31-25-7463vjwf 1 tablet by mouth twice daily in the eveningcalcium polycarbophil (FIBERCON) 625 mg tablet Take 1 tablet by mouth two times a day. 60 tablet 2 08/30/2024 3:08 PM EST 08/30/2024 11/03/2024 Discontinued cholestyramine resin 4000 mg powder for oral suspension (20 sources)Bile Acid SequestrantStart: 09-18-2024 End: 56-81-8280ivlj 1 dose by mouth twice daily at mealtimecholestyramine (QUESTRAN) 4 gram packet Indications: High output ileostomy (HCC) Take 1 Packet by mouth two times a day with meals. 60 Packet 2 09/18/2024 12/29/2024 Awixdlfkahwh806 ml ciprofloxacin 2 mg/ml injection (3 sources)Quinolone AntimicrobialStart: 05-31-2020 End: 33-73-1754lasu 400 mg intravenous route every twelve hoursciprofloxacin (CIPRO) IVPB 400 mg (premix) End: 48-14-8037eoed 1 tablet by mouth twice dailyCiprofloxacin (CIPRO PO) Take 1 tablet by mouth 2 times daily 07/20/2024 Discontinued (LIST CLEANUP)take 1 tablet by mouth twice dailyCiprofloxacin (CIPRO PO) Take 1 tablet by mouth 2 times daily Activecitalopram 20 mg oral tablet (20 sources)Serotonin Reuptake InhibitorStart: 05-80-2578huzu 40 mg by mouth once daily40 mg, Oral, DAILY, First dose on Wed07/19/24 at 2100, Until DiscontinuedStart: 40-07-1925zvzw 40 mg by mouth once daily40 mg, Oral, DAILY, First dose on Wed05/01/24 at 2100, Until DiscontinuedStart: 61-02-5575skjm 1 tablet by mouth once dailyCitalopram 40 mg tablet Active 0 .ROUTE .COMPLEX 90 0 March 15, 2024 3:50pm TAKE 1 TABLET BY MOUTH EVERY DAY FOR 90 DAYS Complies with drug therapyStart: 12-21-2023 End: 43-23-6337lyaa 1 tablet by mouth once dailyCitalopram 40 mg tablet Discontinued 40 MG PO Daily December 21, 2023 12:00am March 15, 2024 3:50pm Start: 02-16-2023 End: 50-06-1601zbdm 1 tablet by mouth once dailyCitalopram 20 mg tablet Discontinued 20 MG PO Daily February 16, 2023 12:00am April 30, 2025 3:55pm Start: 09-22-2020 End: 42-48-5412zbtd 1 tablet by mouth once dailycitalopram (CELEXA) 20 MG tablet Indications: Depression, unspecified depression type Take 1 (one) tablet (20 mg total) by mouth daily . 30 tablet 2 09/22/2020 ActiveStart: 06-19-2020 End: 45-49-9213pfwf 1 tablet by mouth once dailycitalopram (CELEXA) 10 MG tablet Indications: Depression, unspecified depression type Take 1 (one) tablet (10 mg total) by mouth daily . 30 tablet 2 06/19/2020 09/22/2020 Discontinued (Reorder)clobetasol propionate 0.0005 mg/mg topical ointment (1 source)CorticosteroidStart: 12-27-2023 End: 10-29-5373uswkwuppvZ (TEMOVATE) 0.05 % ointment Apply 1 Application topically in the morning and 1 Application before bedtime. 30 g 12/27/2023 04/22/2024 Discontinued1 ml dexamethasone phosphate 4 mg/ml injection (1 source)CorticosteroidStart: 11-22-2023 End: 56-07-8244exwBNPCOjcqxn (DECADRON) injection 4 mgStart: 11-22-2023 End: 13-23-6821cbzEEQTFizxki (DECADRON) injection 4 mgertapenem (INVanz) 1,000 mg [...] injection (1 source)Histamine-2 Receptor AntagonistStart: 11-22-2023 End: 58-05-1278ptjuenzezc (PEPCID) injection 20 mgStart: 11-22-2023 End: 54-57-2889tdkfiukhzs (PEPCID) injection 20 mg2 ml fentaNYL 0.05 mg/ml injection (7 sources)Opioid AgonistStart: 07-28-2024 End: 79-70-5066jmtw 1 dose by mouth every hour25 mcg, IntraVENous, ONCE, 1 dose, On Wed07/28/24 at 2015, If oral and IV narcotics ordered, use oral first and only use IV if oral is ineffective or cannot take oral. Do Not give oral and IV within 1 hour of each other unless specifically ordered.Start: 07-28-2024 End: 25-39-1631axxd 1 dose by mouth every hour25 mcg, IntraVENous, ONCE, 1 dose, On Wed07/28/24 at 1745, If oral and IV narcotics ordered, use oral first and only use IV if oral is ineffective or cannot take oral. Do Not give oral and IV within 1 hour of each other unless specifically ordered.Start: 05-01-2024 End: 99-25-2740RTP, Starting on Wed05/03/24 at 1710, Until Wed05/03/24 at 1710, Intra-opStart: 05-01-2024 End: 81-94-1643nkcp 1 dose by mouth every hexs192 mcg, IntraVENous, ONCE, 1 dose, On Wed05/01/24 at 1845, If oral and IV narcotics ordered, use oral first and only use IV if oral is ineffective or cannot take oral. Do Not give oral and IV within 1 hour of each other unless specifically ordered.Start: 11-22-2023 End: 82-67-0309slutkQZL (SUBLIMAZE) injection 50 mcgStart: 04-30-2018 End: 91-40-6695jyhjzQTV (SUBLIMAZE) inj syringe 50 mcgflu vacc [id number] 6mos up(PF) (FLUZONE QUAD/FLULAVAL QUAD/FLUARIX QUAD) syringe 0.5 mL (1 source)Start: 06-03-2020 End: 78-04-3237bbzbsw 0.5 mL by intramuscular injection every twenty-four hours as neededflu vacc [id number] 6mos up(PF) (FLUZONE QUAD/FLULAVAL QUAD/FLUARIX QUAD) syringe 0.5 mLgabapentin 300 mg oral capsule (20 sources)Anti-epileptic AgentStart: 08-07-2024 End: 20-40-2564pixy 1 capsule by mouth three times dailygabapentin (NEURONTIN) 300 mg capsule Take 1 capsule by mouth three times a day for 30 days. 90 capsule 08/08/2024 12:15 PM EST 08/07/2024 11/03/2024 Tirqsnzfyuka710 ml glucose 50 mg/ml / potassium chloride 0.02 meq/ml / sodium chloride 4.5 mg/ml injection (1 source)Start: 05-31-2020 End: 87-88-7492pkuv 100 mL intravenous route every iwzn259 mL/hr, Intravenous, Continuous, Starting Wed05/31/20 at 52617 ml HYDROmorphone hydrochloride 1 mg/ml cartridge (8 sources)Opioid AgonistStart: 07-23-2024 End: 76-50-2810tmpy 0.5 mg by mouth once0.5 mg, IntraVENous, ONCE, 1 dose, On Wed07/23/24 at 0945, If oral and IV narcotics ordered, use oral first and only use IV if oral is ineffective or cannot take oral. Do Not give oral and IV within 1 hour of each other unless specifically ordered.Start: 07-19-2024 End: 22-57-6625ypjn 0.5 mg by mouth every four hours [...] each other unless specifically ordered.Start: 07-19-2024 End: 19-25-4397tlqd 0.5 mg by mouth once0.5 mg, IntraVENous, ONCE, 1 dose, On Wed07/19/24 at 1815, If oral and IV narcotics ordered, use oral first and only use IV if oral is ineffective or cannot take oral. Do Not give oral and IV within 1 hour of each other unless specifically ordered.Start: 07-19-2024 End: 34-88-7147opwz 1 dose by mouth every hour1 mg, IntraVENous, ONCE, 1 dose, On Wed07/19/24 at 1545, If oral and IV narcotics ordered, use oralfirst and only use IV if oral is ineffective or cannot take oral. Do Not give oral and IV within 1 hour of each other unless specifically ordered.Start: 05-01-2024 End: 04-96-9990daac 1 dose by mouth every hour1 mg, IntraVENous, ONCE, 1 dose, On Wed05/01/24 at 1615, If oral and IV narcotics ordered, use oral first and only use IV if oral is ineffective or cannot take oral. Do Not give oral and IV within 1hour of each other unless specifically ordered.Start: 05-01-2024 End: 56-80-8110xkpp 1 dose by mouth every hour1 mg, IntraVENous, ONCE, 1 dose, On Wed05/01/24 at 1445, If oral and IV narcotics ordered, use oral first and only use IV if oral is ineffective or cannot take oral. Do Not give oral and IV within 1hour of each other unless specifically ordered.Start: 05-31-2020 End: 54-71-1917pbmu 0.5 mg intravenous route every three hours as needed HYDROmorphone (DILAUDID) injection 0.5 mg1 ml hyoscyamine sulfate 0.5 mg/ml injection (2 sources)Start: 50.25 mg, IntraVENous, EVERY 6 HOURS PRN, Starting on Wed07/25/24 at 1654, Until Discontinued, CrampingStart: 07-24-2024 End: 50.25 mg, IntraVENous, ONCE, 1 dose, On Wed07/24/24 at 1500Iohexol (2 sources)Radiographic Contrast AgentStart: 05-02-2024 End: 10-48-3448ckla 1 dose by mouth once50 mL, Oral, IMG ONCE PRN, 1 dose, Starting on Wed05/02/24 at 0951, Until Wed05/02/24 at 0954, OtherStart: 05-02-2024 End: 34-74-0854rher 1 dose by mouth once50 mL, Oral, IMG ONCE PRN, 1 dose, Starting on Wed05/02/24 at 0943, Until Wed05/02/24 at 0955, Otheriohexol (OMNIPAQUE 240) IV/PO solution 50 mL (1 source)Start: 05-06-2024 End: 19-32-1867yckg 1 dose rectal route once50 mL, Rectal, IMG ONCE PRN, 1 dose, Starting on 05/06/24 at 1224, Until 05/06/24 at 1225, Otheriopamidol (ISOVUE-370) 76 % injection 75 mL (4 sources)Start: 07-19-2024 End: 06-15-4262shez 1 dose intravenously once75 mL, IntraVENous, IMG ONCE PRN, 1 dose, Starting on Wed07/19/24 at 1725, Until Wed07/19/24 at 1728, OtherStart: 05-02-2024 End: 08-36-9843bndd 1 dose intravenously once75 mL, IntraVENous, IMG ONCE PRN, 1 dose, Starting on Wed05/02/24 at 0943, Until Wed05/02/24 at 0955, OtherStart: 05-01-2024 End: 75-14-4587bkyf 1 dose intravenously once75 mL, IntraVENous, IMG ONCE PRN, 1 dose, Starting on Wed05/01/24 at 1527, Until Wed05/01/24 at 1547, OtherStart: 11-22-2023 End: 47-30-3527jgxdkword (ISOVUE-370) 76 % injection 75 mLloperamide hydrochloride 2 mg oral capsule (20 sources)Opioid AgonistStart: 08-30-2024 End: 91-29-8070lesb 2 capsules by mouth at bedtimeloperamide (IMODIUM) 2 mg cap(s) Indications: High output ileostomy (HCC) Take 2 capsules by mouth before meals and at bedtime. 240 capsule 2 10/25/2024 Suspended1 ml LORazepam 2 mg/ml injection (3 sources)BenzodiazepineStart: 07-21-2024 End: 03-85-8142zplqvc 0.5 mg intravenously once0.5 mg, IntraVENous, ONCE, 1 dose, On Wed07/21/24 at 2315, Immediately prior to intravenous use, lorazepam Injection must be diluted with at least an equal volume of compatible solution (NS or D5W).Start: 07-21-2024 End: 93-19-3717csodzl 1 dose intravenously once1 mg, IntraVENous, ONCE, 1 dose, On Wed07/21/24 at 2045, Immediately prior to intravenous use, lorazepam Injection must be diluted with at least an equal volume of compatible solution (NS or D5W). For ngt placementStart: 35-55-5168umgjud 0.5 mg intravenously every eight hours as [...] 1,000 mg (milligrams) per hour.Start: 07-05-2021 End: 62-31-6645ulzrjvydy sulfate (EPSOM SALT) 495 mg/5 gram granules Apply 1 application topically once as needed (abscess drainage) for up to 1 dose. 454 g 0 07/05/2021 08/18/2023 Discontinued (Therapy completed)Start: 05-31-2020 End: 99-33-3198rxrrarnmq sulfate 2 g in sterile water (SW) 50 mL IVPBmelatonin 5 mg oral tablet (1 source)Start: 86-80-3154hxgz 5 mg by mouth once daily as needed5 mg, Oral, NIGHTLY PRN, Starting on Wed07/19/24 at 2107, Until Discontinued, Sleep methylPREDNISolone 40 mg injection (2 sources)CorticosteroidStart: 05-31-2020 End: 38-76-8614fjenlpVGHBCKSldnza sod suc(PF) (SOLU-medrol) 40 mgStart: 05-30-2020 End: 15-81-7663inhbvrCYVJRUYywqzl sod suc(PF) (SOLU-medrol) Injection 125 mg100 ML metroNIDAZOLE 5 MG/ML Injection (2 sources)Nitroimidazole AntimicrobialStart: 05-31-2020 End: 92-95-7398coud 500 mg intravenous route every eight hoursmetroNIDAZOLE (FLAGYL) IVPB 500 mgtake 1 tablet by mouth three times dailymetroNIDAZOLE (FLAGYL PO) Take 1 tablet by mouth 3 times daily Active2 ml midazolam 1 mg/ml injection (2 sources)BenzodiazepineStart: 05-03-2024 End: 33-31-2313DAL, Starting on Wed05/03/24 at 1719, Until Wed05/03/24 at 1719, Intra-op1 ml morphine sulfate 4 mg/ml cartridge (1 source)Opioid AgonistStart: 05-30-2020 End: 46-53-7110axcppdyz syringe 4 mgmupirocin 0.02 mg/mg topical ointment (5 sources)RNA Synthetase Inhibitor AntibacterialStart: 12-21-2023 End: 68-35-0815Lovuixelg 2 % ointment Discontinued APPLIC TOPICAL December 21, 2023 12:00am April 30, 2025 3:56pm FreeTextSi application Externally TID; Note: Source Status: Start; Qty: 60 Gram; Provider: Ambika Gómez AStart: 48-35-9524Whwnnrmbd Active APPLIC TOPICAL December 21, 2023 12:00am FreeTextSi application Externally TID; Note: Source Status: Start; Qty: 60 Gram; Provider: Ambika Gómez AStart: 45-12-7797Lvhbonpjc 2 % 1 application Externally TID for 7 days May, Activenaloxone (NARCAN) injection 0.1 mg (2 sources)Start: 05-31-2020 End: 18-67-8577fmcqlftd (NARCAN) injection 0.1 mgStart: 04-30-2018 End: 01-68-2562vhxintcw (NARCAN) injection 0.1 mg24 hr nicotine 0.875 mg/hr transdermal system (20 sources)Cholinergic Nicotinic AgonistStart: 12-21-2023 End: 70-74-4085mcvcd 1 dose transdermal route every twenty-four hoursNicotine 21 mg/24 hr patch 24 hour Discontinued 1 PATCH TRANSDERML Daily December 21, 2023 12:00am April 30, 2025 4:04pmStart: 08-44-7800kabgw 1 dose transdermal route once dailyNicotine Active 1 PATCH TRANSDERML Daily December 21, 2023 12:00am Start: 12-21-2023 End: 22-98-2747Cccbcghf (Polacrilex) 2 mg lozenge Discontinued MG PO As Directed December 21, 2023 12:00am April 30, 2025 4:04pm FreeTextSig: as directed Mouth/Throat; Note: Source Status: TakingPRN; Provider: OTCStart: 12-21-2023 Nicotine (Polacrilex) Active MG PO As Directed December 21, 2023 12:00am FreeTextSig: as directed Mouth/Throat; Note: Source Status: TakingPRN; Provider: OTCStart: 06-03-2020 End: 00-51-8830tugjetpt (NICODERM CQ) 14 mg/24 hr 1 patchStart: 06-01-2020 End: 99-88-0629ejadmkcl (NICODERM CQ) 7 mg/24 hr 1 patchapply 1 dose transdermal route once daily as neededNicotine 21 MG/24HR 1 patch to skin Transdermal Once a day PRN ActiveNicotine 2 MG as directed Mouth/Throat PRN Activeomeprazole 40 mg delayed release oral capsule (15 sources)Proton Pump InhibitorStart: 12-21-2023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 disorders (15 sources)Acute postoperative pain; Translations: [Other acute postprocedural pain]Onset: 522102-83-6410PvufffhwCezqy nutritional; endocrine; and metabolic disorders (20 sources)Feeding problem; Translations: [Feeding difficulties]Onset: 409784-12-4694NzusyhfdMfhsh screening for suspected conditions (not mental disorders or infectious disease) (10 sources)Elevated C-reactive protein; Translations: [Elevated C-reactive protein (CRP)]Onset: 067845-13-1713KmycxgqqMbvdd skin disorders (1 source)Follicular cyst of the skin and subcutaneous tissue, unspecified; Translations: [Follicular cyst ofthe skin and subcutaneous tissue, unspecified] Onset: 76-84-5166EtyiqxqiPeqij skin disorders (1 source)Cyst of skin; Translations: [Follicular cyst of the skin and subcutaneous tissue, unspecified]71-06-9673OxylnapnScgim skin disorders (1 source)Other seborrheic keratosis; Translations: [Seborrheic keratoses]Onset: 63-92-2929BdqliyfrIixcy skin disorders (1 source)Other melanin hyperpigmentation; Translations: [Lentigines]Onset: 73-42-0383GscbhjlpVuoet skin disorders (1 source)Localized swelling, mass and lump, unspecified; Translations: [Subcutaneous nodule]Onset: 87-82-8694CxluerxfJrdcb skin disorders (1 source)Rash and other nonspecific skin eruption; Translations: [Rash and nonspecific skin eruption]Onset: 08-54-1015HcvuhhpaVgsgqruatyb and intestinal abscess (9 sources)Abdominal abscess; Translations: [Peritoneal abscess]Onset: 703076-72-2241QdpakwkbLdwwvxexc by nonmedicinal substances (3 sources)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; Translations: [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, accidental (unintentional), subsequent encounter]Onset: 859487-36-9031XgmvxvaaMaybodba codes; unclassified (20 sources)Difficult venous access; Translations: [Other specified health status]Onset: 313107-07-2146LaqvkbktZolztwfp codes; unclassified (20 sources)Pain; Translations: [Pain, unspecified]Onset: EpisodicResidual codes; unclassified (1 source)Other specified postprocedural states; Translations: [Post-operative state]Onset: 66-61-4879NfulqgxoDiex and subcutaneous tissue infections (2 sources)Local infection of the skin and subcutaneous tissue, unspecified; Translations: [Abscess]Onset: 54-16-2414ImttooyfGylsakdrjjf; intervertebral disc disorders; other back problems (3 sources)Cervicalgia; Translations: [CERVICALGIA]Onset: 29-15-5386Gkeurevr Unclassified (1 source)Patient encounter xbofbh20-57-8661Riryiprgoysp (1 source)Finding of sensation of -[phone] Results Test NameValueInterpretationReference RangeFacilityCNPNon 22-77-1136XLHONtxqmm [facility] Clepeoples hospitalAlkaline Phoson 23-09-7442Jkoltyam Phos73 U/LNormal 35-104Mercy St. Vincent'S Medical CenterComment on above:Performed By: #### ALP #### [facility] [address] [place] [address] Securities Adviser: Fartun Hurley, MDAlkaline Phosphataseon 80-14-1816IND [Catalytic activity/Vol]73 U/L35 - 104 U/LBon Secours Guernsey Memorial HospitalBon [facility] CBC with Auto Differentialon 34-28-9544Exqhnuusb (Bld) [#/Vol]0.03 10*3/uLBon Secours Guernsey Memorial HospitalBasophils/100 WBC (Bld)1 %0 - 2 %[facility] Eosinophils (Bld) [#/Vol]0.17 10*3/uLBon Secours Guernsey Memorial HospitalEosinophils/100 WBC (Bld)3 %1 - 4 %Bon [facility]Av[facility]cyrus HospitalErythrocyte distribution width (RBC) [Ratio]13.7 %11.8 - 14.4 %[facility] Bucy[facility] HospitalHematocrit (Bld) [Volume fraction]34.8 %Low36.3 - 47.1 %[facility]Av[facility] HospitalHemoglobin (Bld) [Mass/Vol]11.3 g/dLLow11.9 - 15.1 g/dLBon SecAvita Health System Bucyrus HospitalImmature granulocytes (Bld) [#/Vol][facility] HospitalImmature granulocytes/100 WBC (Bld)0 %0[facility] HealthInterpretation and review of laboratory results AbnormalBon Secours [facility]y [facility] HospitalLymphocytes/100 WBC (Bld)25 %24 - 43 %[facility] HospitalLymphocytes/100 WBC (Bld)1.28 %Bon SecPremier HealthH (RBC) [Entitic mass]29.1 pg25.2 - 33.5 pgBon Secours [facility] Health PrebleHC (RBC) [Mass/Vol]32.5 g/dL28.4 - 34.8 g/dLBon [facility] DaytonMCV (RBC) [Entitic vol]89.7 fL82.6 - 102.9 fLCarilion Roanoke Community HospitalMonocytes/100 WBC (Bld)7 %3 - 12 %Bon [facility] DaytonMonocytes/100 WBC (Bld)0.37 %[facility] HospitalNeutrophils/100 WBC (Bld)64 %36 - 65 %[facility] HospitalNucleated RBC/100 WBC (Bld) [Ratio]0.0 %0.0 per 100 WBCCarilion Roanoke Community HospitalPlatelet mean volume (Bld) [Entitic vol]11.3 fL8.1 - 13.5 fLCarilion Roanoke Community Hospital Platelets (Bld) [#/Vol]184 10*3/uLBon [facility] DaytonRBC (Bld) [#/Vol]3.88 10*6/uLLow3.95 - 5.11 m/uLBon [facility] DaytonSegmented neutrophils/100 WBC (Bld)3.26 %[facility] HospitalWBC other (Bld) [#/Vol]5.1Bon [facility] SystemCBC with Diffon 75-56-5342Cav. Basophil0.03 k/uL Normal0.00-0.20MerMilford HospitalComment on above:Performed By: #### MG, JOSELIN, CDP, CP #### [address] [place] [address] Securities Adviser: Ruba Perry.Imm.Granulocyte<0.41Kovzrb2.00-0.30MerMilford HospitalComment on above:Performed By: #### MG, JOSELIN, CDP, CP #### [address] [place] [address] Securities Adviser: Ruba Perry.Neutrophil (Seg)3.26 k/uLNormal1.50-8.10[facility]lower HospitalComment on above:Performed By: #### MG, JOSELIN, CDP, CP #### [address] [place], [place] [address] Securities Adviser: Fartun Hurley MDBasophils/100 WBC (Bld)1 %Normal0-2MVan Wert County Hospital HospitalComment on above:Performed By: #### MG, JOSELIN, CDP, CP #### [address] [place] [address] Securities Adviser: Fartun Hurley MDEosinophils (Bld) [#/Vol]0.17 10*3/uLNormal 0.00-0.44[facility] HospitalComment on above:Performed By: #### MG, JOSELIN, CDP, CP #### [address] [place], [place] [address] Securities Adviser: Fartun Hurley MDEosinophils/100 WBC (Bld)3 %Normal1-4[facility] HospitalComment on above:Performed By: #### MG, JOSELIN, CDP, CP #### [address] [place], [place] [address] Securities Adviser: Fartun Hurley MDErythrocyte distribution width (RBC) [Ratio]13.7 % Jdmysc01.8-14.4[facility] HospitalComment on above:Performed By: #### MG, JOSELIN, CDP, CP #### [address] [place], [place] [address] Securities Adviser: Fartun Hurley MDHematocrit (Bld) [Volume fraction]34.8 %Low 36.3-47.1MVan Wert County Hospital HospitalComment on above:Performed By: #### MG, JOSELIN, CDP, CP #### [address] [place] [id number] Securities Adviser: Fartun Hurley MDHemoglobin (Bld) [Mass/Vol]11.3 g/dLLow11.9-15.1 [facility] HospitalComment on above:Performed By: #### MG, JOSELIN, CDP, CP #### [address] [place], [place] [address] Securities Adviser: Johanny Perrymature granulocytes/100 WBC (Bld)0 %Wfvzjt8Dwepg Tiffin HospitalComment on above:Performed By: #### MG, JOSELIN, CDP, CP #### [address] [place], [place] [address] Securities Adviser: Fartun Hurley MDLymphocytes (Bld) [#/Vol]1.28 10*3/uLNormal 1.10-3.70[facility] HospitalComment on above:Performed By: #### MG, JOSELNI, CDP, CP #### [address] [place], [place] [address] Securities Adviser: Dereck Perrymphocytes/100 WBC (Bld)25 %Unlzly77-30Owqsj [facility]in HospitalComment on above:Performed By: #### MG, JOSELIN, CDP, CP #### [address] [place], [facility]83 Securities Adviser: SHARYN Perry (RBC) [Entitic mass]29.1 sfDonkkp66.2-33.5 [facility] HospitalComment on above:Performed By: #### MG, JOESLIN, CDP, CP #### [address] [place], [facility]83 Securities Adviser: SHARYN PerryC (RBC) [Mass/Vol]32.5 g/cJVuqfad96.4-34.8[facility] HospitalComment on above:Performed By: #### MG, JOSELIN, CDP, CP #### [address] [place], [place] [id number] Securities Adviser: JAN PerryCV (RBC) [Entitic vol]89.7 kMDmjxxe20.6-102.9 [facility] Huntertown HospitalComment on above:Performed By: #### MG, JOSELIN, CDP, CP #### [address] [place], [place] [address] Securities Adviser: JAN Perryonocytes (Bld) [#/Vol]0.37 10*3/uLNormal0.10-1.20 [facility] HospitalComment on above:Performed By: #### MG, JOSELIN, CDP, CP #### [address] [place], [place] [address] Securities Adviser: JAN Perryonocytes/100 WBC (Bld)7 %Normal3-12[facility] HospitalComment on above:Performed By: #### MG, JOSELIN, CDP, CP #### [address] [place], [place] [address] Securities Adviser: Fer Perryutrophil (Seg)64 %Uuahcp09-93LzprxPromedica Flower HospitalComment on above:Performed By: #### MG, JOSELIN, CDP, CP #### [address] [place], [place] [address] Securities Adviser: Fartun Hurley MDNRBC Automated0.0 per 100 WBCNormal0.0[facility] HospitalComtrinity health [facility] on above:Performed By: #### MG, JOSELIN, CDP, CP #### [address] [place], [place] [address] Securities Adviser: RACHID Perrylatelet mean volume (Bld) [Entitic vol]11.3 fL Normal8.1-13.5[facility] HospitalComtrinity health [facility] hospital on above:Performed By: #### MG, JOSELIN, CDP, CP #### [address] [place], [place] [id number] Securities Adviser: RACHID Perrylatelets (Bld) [#/Vol]184 10*3/pMZpaxdv945-303 [facility] HospitalComment on above:Performed By: #### MG, JOSELIN, CDP, CP #### [address] [place] [address] Securities Adviser: FADY Perry ([facility]) [#/Vol]3.88 10*6/uLLow3.95-5.11[facility] HospitalComment on above:Performed By: #### MG, JOSELIN, CDP, CP #### [address] [place] [address] Securities Adviser: GIANNA Perry ([facility]) [#/Vol]5.1 10*3/uLNormal3.5-11.3MSouthwest General Health CenterComment on above:Performed By: #### MG, JOSELIN, CDP, CP #### [address] [place] [address] Securities Adviser: ANGIE Peryromp Metabolic Profon 91-41-7727Jkonews [Mass/Vol] 3.9 g/dLNormal3.5-5.2MVan Wert County Hospital HospitalComment on above:Performed By: #### MG, JOSELIN, CDP, CP #### [address] [place] [address] Securities Adviser: Fartun Hurley MDAlbumin/Glob Ratio1.5Qdkisk9.0-2.5[facility] HospitalComment on above:Performed By: #### MG, JOSELIN, CDP, CP #### [address] [place] [address] Securities Adviser: Wesley Perryline Phos71 U/CGfndpw58-378PybfpPromedica Flower HospitalComment on above:Performed By: #### MG, JOSELIN, CDP, CP #### [address] [place], [place] [id number] Securities Adviser: Fartun Hurley MDALT [Catalytic activity/Vol]22 U/MDtboxt69-11JvunbPromedica Flower HospitalComment on above:Performed By: #### MG, JOSELIN, CDP, CP #### [address] [place], [place] [id number] Securities Adviser: Fartun Hurley MDAnion gap [Moles/Vol]7 mmol/LLow9-16MerLutheran Hospital HospitalComment on above:Performed By: #### MG, JOSELIN, CDP, CP #### [address] [place] [address] Securities Adviser: aFrtun Hurley MDAST [Catalytic activity/Vol]18 U/WNwwmxk79-05IxlisPromedica Flower HospitalComment on above:Performed By: #### MG, JOSELIN, CDP, CP #### [address] [place], [place] [address] Securities Adviser: Fartun Hurley MDBilirubin [Mass/Vol]0.3 mg/dLNormal0.00-1.20MerMilford HospitalComment on above:Performed By: #### MG, JOSELIN, CDP, CP #### [address] [place], [place] [address]783 Securities Adviser: Fartun Hurley MDBUN/CRE Yubtc24Bqzb7-93OuoaoPromedica Flower Hospital Comment on above:Performed By: #### MG, JOSELIN, CDP, CP #### [address] [place] [address] Securities Adviser: Fartun Hurley MDCalcium [Mass/Vol]8.6 mg/dLNormal8.6-10.4[facility] HospitalComment on above:Performed By: #### MG, JOSELIN, CDP, CP #### [address] [place], [place] [address] Securities Adviser: ANGIE Perryhloride [Moles/Vol]104 mmol/EUiwgca43-824Fuame Tiffin HospitalComment on above:Performed By: #### MG, JOSELIN, CDP, CP #### [address] [place] [address] Securities Adviser: ANGIE PerryO2 [Moles/Vol]27 mmol/CLjrlru25-47RzgqfPromedica Flower HospitalComment on above:Performed By: #### MG, JOSELIN, CDP, CP #### [address] [place], [place] [address] Securities Adviser: ANGIE Perryreatinine [Mass/Vol]0.5 mg/dLNormal0.50-0.90[facility] HospitalComment on above:Performed By: #### MG, JOSELIN, CDP, CP #### [address] [place] [address] Securities Adviser: Fartun Hurley MDGFR/1.73 sq M.predicted among non-blacks MDRD (S/P/Bld) [Vol rate/Area]mL/min/{1.73_m2}Normal>60[facility] HospitalComment on above:Result Comment: These results are [...] By: #### MG, JOSELIN, CDP, CP #### [address] [place] [address] Securities Adviser: Fartun Hurley MDGlucose [Mass/Vol]113 mg/bKQahf66-56MbxnySouthwest General Health CenterComment on above:Performed By: #### MG, JOSELIN, CDP, CP #### [address] [place] [address] Securities Adviser: RACHID Perryotassium [Moles/Vol]4.4 mmol/LNormal3.7-5.3MercLake County Memorial Hospital - West HospitalComment on above:Performed By: #### MG, JOSELIN, CDP, CP #### [facility] [address] [place] [address] Securities Adviser: RACHID Perryrotein [Mass/Vol]6.7 g/dLNormal6.6-8.7[facility] HospitalComment on above:Performed By: #### MG, JOSELIN, CDP, CP #### [facility] [address] [place] [address] Securities Adviser: CASS Perryodium [Moles/Vol]138 mmol/HXztmju535-273PzxypPromedica Flower HospitalComment on above:Performed By: #### MG, JOSELIN, CDP, CP #### [address] [place] [address] Securities Adviser: Fartun Hurley MDUrea nitrogen [Mass/Vol]21 mg/dLHigh6-20[facility] HospitalComment on above:Performed By: #### MG, JOSELIN, CDP, CP #### [address] [place] [address] Securities Adviser: ANGIE Perryomprehensive Metabolic Panelon 38-03-5861Pudcfbr [Mass/Vol]3.9 g/dL3.5 - 5.2 g/dLBon [facility] DaytonAlbumin/Globulin [Mass ratio]1.4 {ratio}1.0 - 2.5Bon [facility] HealthALP [Catalytic activity/Vol]71 U/L35 - 104 U/LBon [facility] HealthALT [Catalytic activity/Vol]22 U/L10 - 35 U/LBon [facility] DaytonAnion gap [Moles/Vol]7 mmol/LLow9 - 16 mmol/LBon [facility] HealthAST [Catalytic activity/Vol]18 U/L10 - 35 U/LBon [facility] DaytonBilirubin [Mass/Vol]0.3 mg/dL0.00 - 1.20 mg/dLBon [facility] DaytonCalcium [Mass/Vol]8.6 mg/dL8.6 - 10.4 mg/dLBon [facility] Chloride [Moles/Vol]104 mmol/L98 - 107 mmol/LBon [facility] DaytonCO2 [Moles/Vol]27 mmol/L20 - 31 mmol/LBon [facility] DaytonCreatinine [Mass/Vol] 0.5 mg/dL0.50 - 0.90 mg/dLBon [facility] DaytonEst, Glom Filt Rate- PINFBon [facility] DaytonComment on above: These results are not intended [...] that affects renal tubular secretion. Glucose [Mass/Vol]113 mg/rAFihs72 - 99 mg/dLBon [facility] Interpretation and review of laboratory resultsAbnormalBon [facility] Potassium [Moles/Vol]4.4 mmol/L3.7 - 5.3 mmol/LBon [facility] DaytonProtein [Mass/Vol]6.7 g/dL6.6 - 8.7 g/dLBon [facility] DaytonSodium [Moles/Vol]138 mmol/L136 - 145 mmol/LBon [facility] DaytonUrea nitrogen [Mass/Vol]21 mg/dL High6 - 20 mg/dLBon [facility] DaytonUrea nitrogen/Creatinine [Mass ratio]42 mg/mgHigh9 - 20Bon [facility] DaytonMagnesiumon 69-20-5254Dyptpxdiz [Mass/Vol]2.0 mg/dL1.6 - 2.6 mg/dLBon [facility] DaytonMagnesium [Mass/Vol] 2.0 mg/dLNormal1.6-2.6[facility] Vincent'S Medical CenterComment on above:Performed By: #### MG, JOSELIN, CDP, CP #### [facility] [address] [place] [address] Securities Adviser: Fartun Hurley MDNo Panel Informationon 65-86-1003Myi [facility] DaytonPhosphoruson 23-68-9167Atferremv [Mass/Vol]3.8 mg/dL2.5 - 4.5 mg/dLBon [facility] DaytonPhosphorus, Inorg.on 60-47-4249Zaflaiayag, Inorg.3.8 mg/dL Normal2.5-4.5[facility] HospitalComment on above:Performed By: #### MG, JOSELIN, CDP, CP #### [address] [place] [address] Securities Adviser: ANGIE PerryNCOon 25-49-4010AANXXpribm TextNormalCUniversity Hospitals Health SystemCNPNon 18-08-1028ZVANAnelufPpubpjzxh Clinic ClevelandCNPNon 30-72-8467SCWAMrfwryYjdiilmhhThe Jewish HospitalCNOVon 25-71-7004JKAATwohaw Dunlap Memorial HospitalCNPNon 53-96-5413KFNWApgfwyMvcahqdxqThe Jewish Hospital CNPNon 96-02-7304RRZCPjuinrFjigdtlkjThe Jewish HospitalComp Metabolic Profon 39-84-5441Ofgexhj [Mass/Vol]4.0 g/dLNormal3.5-5.2MercMilford HospitalComment on above:Performed By: #### LIPR #### [place] [address] [place] [address] Securities Adviser: Dioni Merlos MD #### JOSELIN, REJEC, MG, CP #### [address] [place] [address] Securities Adviser: Ulysses Perry Phos76 U/WShxykb68-220OjqhxPromedica Flower HospitalComment on above:Performed By: #### LIPR #### [facility] [address] [place] [address] Securities Adviser: Dioni Merols MD #### JOSELIN, REJEC, MG, CP #### [address] [place] [id number] Securities Adviser: Fartun Hurley MDALT [Catalytic activity/Vol]47 U/EShlq84-84Ezsvg48 Hicks StreetComment on above:Performed By: #### LIPR #### [address] [address] Securities Adviser: Dioni Mrelos MD #### JOSELIN, REJEC, MG, CP #### [address] [place] [address] Securities Adviser: Fartun Hurley MDAST [Catalytic activity/Vol]26 U/GZzvzwl74-18AjgrhPromedica Flower HospitalComment on above:Performed By: #### LIPR #### [address] [address] Securities Adviser: Dioni Merlos MD #### JOSELIN, REJEC, MG, CP #### [address] [place] [address] Securities Adviser: Fartun Hurley MDBilirubin [Mass/Vol]0.3 mg/dLNormal0.00-1.20[facility] HospitalComment on above:Performed By: #### LIPR #### [address] [address] Securities Adviser: Dioni Merlos MD #### JOSELIN, REJEC, MG, CP #### [address] [place] [id number] Securities Adviser: Fartun Hurley MDAlbumin/Glob Ratio1.7Wvbyky4.0-2.5Prom[facility] Flower HospitalComtrinity health [facility]ston hospital on above:Performed By: #### LIPR #### [address] [address] Securities Adviser: Dioni Merlos MD #### JOSELIN, REJEC, MG, CP #### [address] [place] [id number] Securities Adviser: Fartun Hurley MDAnion gap [Moles/Vol]13 mmol/LNormal9-16Prom[facility] HospitalComment on above:Performed By: #### LIPR #### [address] [address] Securities Adviser: Dioni Merlos MD #### JOSELIN, REJEC, MG, CP #### [address] [place] [phone] Securities Adviser: Fartun Hurley MDBUN/CRE Yavbh39Cfou9-10ExizyPromedica Flower Hospital Comment on above:Performed By: #### LIPR #### [address] [address] Securities Adviser: Dioni Merlos MD #### JOSELIN, REJEC, MG, CP #### [address] [place] [phone] Securities Adviser: ANGIE Perryalcium [Mass/Vol]8.4 mg/dLLow8.6-10.4Prom[facility] Flower HospitalComment on above:Performed By: #### LIPR #### [address] [address] Securities Adviser: Dioni Merlos MD #### JOSELIN, REJEC, MG, CP #### [address] [place] [phone] Securities Adviser: ANGIE Perryhloride [Moles/Vol]102 mmol/WDpjdko32-025GwgnlPromedica Flower HospitalComment on above:Performed By: #### LIPR #### [address] [address] Securities Adviser: Dioni Merlos MD #### JOSELIN, REJEC, MG, CP #### [address] [place] [phone] Securities Adviser: ANGIE PerryO2 [Moles/Vol]23 mmol/RUbfkxz21-54UtwzqPromedica Flower HospitalComment on above:Performed By: #### LIPR #### [address] [id number] Securities Adviser: Dioni Merlos MD #### JOSELIN, REJEC, MG, CP #### [address] [place] [phone] Securities Adviser: ANGIE Perryreatinine [Mass/Vol]0.5 mg/dLNormal0.50-0.90Prom[facility] Flower HospitalComment on above:Performed By: #### LIPR #### [address] [id number] Securities Adviser: Dioni Merlos MD #### JOSELIN, REJEC, MG, CP #### [address] [place] [address] Securities Adviser: Fartun Hurley MDGFR/1.73 sq M.predicted among non-blacks MDRD (S/P/Bld) [Vol rate/Area]mL/min/{1.73_m2}Normal>60Prom[facility] Flower HospitalComment on above:Result Comment: These results are [...] renal tubular secretion.Performed By: #### LIPR #### [address] [id number] Securities Adviser: Dioni Merlos MD #### JOSELIN, REJEC, MG, CP #### [address] [place] [address] Securities Adviser: Fartun Hurley MDGlucose [Mass/Vol]89 mg/qFVvzymc58-11Segbw Huntertown HospitalComment on above:Performed By: #### LIPR #### [place] [address] Securities Adviser: Dioni Merlos MD #### JOSELIN, REJEC, MG, CP #### [address] [place] [phone] Securities Adviser: RACHID Perryotassium [Moles/Vol]3.7 mmol/LNormal3.7-5.3[facility]y [facility] HospitalComment on above:Performed By: #### LIPR #### [place] [address] Securities Adviser: Dioni Merlos MD #### JOSELIN, REJEC, MG, CP #### [address] [place] [address] Securities Adviser: RACHID Perryrotein [Mass/Vol]6.8 g/dLNormal6.6-8.7Prom[facility] HospitalComment on above:Performed By: #### LIPR #### [place] [address] Securities Adviser: Dioni Merlos MD #### JOSELIN, REJEC, MG, CP #### [address] [place] [phone] Securities Adviser: Fartun Hurley MDSodium [Moles/Vol]138 mmol/JDlhbhn399-379NfrhsPromedica Flower HospitalComment on above:Performed By: #### LIPR #### [place] [address] Securities Adviser: Dioni Merlos MD #### JOSELIN, REJEC, MG, CP #### [address] [place] [phone] Securities Adviser: Fartun Hurley MDUrea nitrogen [Mass/Vol]18 mg/dLNormal6-20[facility] HospitalComment on above:Performed By: #### LIPR #### [address] [address] Securities Adviser: Dioni Merlos MD #### JOSELIN, REJEC, MG, CP #### [address] [place] [address] Securities Adviser: Fartun Hurley MDLipid Profileon 62-05-6112Zrufpfrkiof [Mass/Vol] 133 mg/dLNormal0-199Prom[facility]ica Flower HospitalComment on above:Result Comment: Cholesterol Guidelines: <200 Desirable 200-240 Borderline >240 UndesirablePerformed By: #### LIPR #### [address] [address] Securities Adviser: Dioni Merlos MD #### JOSELIN, REJEC, MG, CP #### [address] [place] [phone] Securities Adviser: ANGIE Perryholesterol in HDL [Mass/Vol]54 mg/dLNormal>40 [facility] on above:Result Comment: HDL Guidelines: <40 Undesirable 40-59 Borderline >59 DesirablePerformed By: #### LIPR #### [address] [address] Securities Adviser: Dioni Merlos MD #### JOSELIN, REJEC, MG, CP #### [address] [place] [address] Securities Adviser: ANGIE Perryholesterol in LDL [Mass/Vol]66 mg/dLNormal0-100 [facility] on above:Result Comment: LDL Guidelines: <100 Desirable 100-129 Near to/above Desirable 130-159 Borderline >159 Undesirable Direct (measured) LDL and calculated LDL are not interchangeable tests.Performed By: #### LIPR #### [address] [address] Securities Adviser: Dioni Merlos MD #### JOSELIN, REJEC, MG, CP #### [address] [place], [place] [id number] Securities Adviser: ANGIE Perryholesterol in VLDL [Mass/Vol]13 mg/dLNormal1-30 [facility] HospitalComment on above:Performed By: #### LIPR #### [address] [address] Securities Adviser: Dioni Merlos MD #### JOSELIN, REJEC, MG, CP #### [address] [place] [phone] Securities Adviser: ANGIE Perryholestdarrell.total/Cholesterol in HDL [Mass ratio] 2.5 {ratio}Normal<5.0[facility] on above:Performed By: #### LIPR #### [address] [address] Securities Adviser: Dioni Merlos MD #### JOSELIN, REJEC, MG, CP #### [address] [place] [id number] Securities Adviser: Fartun Hurley MDTriglyceride [Mass/Vol]66 mg/dLNormal<150[facility] on above:Result Comment: Triglyceride Guidelines: <150 Desirable 150-199 Borderline 200-499 High >499 Very high Based on AHA Guidelines for fasting triglyceride, April 2012.Performed By: #### LIPR #### [address] [address] Securities Adviser: Dioni Merlos MD #### JOSELIN, REJEC, MG, CP #### [address] [place] [address] Securities Adviser: Fartun Hurley MDMagnesiumon 13-18-0109Pegjmnkhn [Mass/Vol]2.0 mg/dLNormal1.6-2.6[facility] Vincent'S Medical CenterComment on above:Performed By: #### LIPR #### [address] [address] Securities Adviser: Dioni Merlos MD #### JOSELIN, REJEC, MG, CP #### [address] [place], [place] [address] Securities Adviser: Rome Perry Inorg.on 19-16-2234Asvtdjhwnd, Inorg. 3.8 mg/dLNormal2.5-4.5Prom[facility] Flower HospitalComment on above:Performed By: #### LIPR #### [address] [address] Securities Adviser: Dioni Merlos MD #### JOSELIN, REJEC, MG, CP #### [address] [place] [address] Securities Adviser: Shy Perryimeandria Rejectionon 26-73-2931Rknfaf for rejectionUnable to perform testing: Specimen clotted.[facility] Comment on above:Performed By: #### LIPR #### [address] [address] Securities Adviser: Dioni Merlos MD #### JOSELIN, REJEC, MG, CP #### [address] [place] [address] Securities Adviser: Veronica Perry of sample.BLOODNoalPromedica Flower Hospital Comment on above:Performed By: #### LIPR #### [address] [address] Securities Adviser: Dioni Merlos MD #### JOSELIN, REJEC, MG, CP #### [address] [place] [address] Securities Adviser: Fartun Hurley MDTest orderedCDPNKettering Health Troyment on above:Performed By: #### LIPR #### [facility] [address] [place] [address] Securities Adviser: Dioni Merlos MD #### JOSELIN, REJEC, MG, CP #### [facility] [address] [place] [address] Securities Adviser: Fartun Hurley MDCNPNon 69-93-8638WXRXPurrlqTzrxnkoaj Clinic ClevelandCNPNon 64-22-9808VOEFJgswosWhliumgyr Clinic ClevelandXR ABDOMEN 3V KUB W/OBLIQUESon 37-12-7563FC ABDOMEN 3V KUB W/OBLIQUESNormalCUniversity Hospitals Health SystemCalprotectin (Stl) [Mass/Mass]on 99-87-8732LNFUNSCNUMGT, FECAL CWSAYEEXYHMU62.6 ug/gHigh<50[facility] on above:Order Comment: Specimen Type: STOOL SPECIMENOrdering Facility: [facility] Address:[address] [place], [place] [address]Performed By: #### 40586- 3 ####[facility] LABCLIA [id number] [address] OF [facility] W Auto Differential panel (Bld)on 60-40-3814Rcoynmaex (Bld) [#/Vol]0.03 10*3/uLNormal<0.11CMarietta Memorial Hospital on above:Order Comment: Specimen Type: BLOOD SPECIMENOrdering Facility: [facility] Address:[address] [place], [place] [address]Performed By: #### 30677-3 ####[facility] LABCLIA [id number] [place], [place] [address]Bpwvijcty/100 WBC (Bld)0.5 % NormalTriHealth [facility] on above:Order Comment: Specimen Type: BLOOD SPECIMENOrdering Facility: [facility] Address:[address] [place], [place] [address]Performed By: #### 82721-0 ####[facility] LABIA [id number] [place] [address] Differential cell count method Nom (Bld)AutoNormalClevelRutherford Regional Health System Comment on above:Order Comment: Specimen Type: BLOOD SPECIMENOrdering Facility: [facility] Address:[address] [place] [address] Performed By: #### 73698-2 ####[facility] LABIA [id number] [place], [place] [address]Macytgimzjy (Bld) [#/Vol]0.18 10*3/uLNormal<0.46[facility] on above:Order Comment: Specimen Type: BLOOD SPECIMENOrdering Facility: [facility] Address:[address] [place], [place] [address]Performed By: #### 98359-6 ####[facility] LABIA [id number] [place], [place] [address]Sfmsvlyvynv/100 WBC (Bld)3.0 %NormalDunlap Memorial HospitalComment on above:Order Comment: Specimen Type: BLOOD SPECIMENOrdering Facility: [facility] Address:[address] [place], [place] [address]Performed By: #### 92696-7 ####[facility] LABIA [id number] [place], [place] [address]Nnpzzuutban distribution width (RBC) [Ratio]13.0 %Rhqkda48.5-15.0[facility] on above: Order Comment: Specimen Type: BLOOD SPECIMENOrdering Facility: [facility] Address:[address] [place], [place] [address]Performed By: #### 14023- 8 ####[facility] LABIA [id number] [place], [place] [address]Rzgwssftjl (Bld) [Volume fraction]34.1 %Low36.0-46.0 [facility] on above:Order Comment: Specimen Type: BLOOD SPECIMENOrdering Facility: [facility] Address:[address] [place], [place] [address]Performed By: #### 47954-8 ####[facility] LABCLIA [id number] [place], [place] [address]Uapqbneuwj (Bld) [Mass/Vol]11.3 g/dLLow11.5-15.5CMarietta Memorial Hospital on above:Order Comment: Specimen Type: BLOOD SPECIMENOrdering Facility: [facility] Address:[address] [place], [place] [address]Performed By: #### 22447- 8 ####[facility] LABCLIA [id number] [place], [place] [address]Ovdatkxg granulocytes (Bld) [#/Vol]10*3/uLNormal<0.10 [facility] on above:Order Comment: Specimen Type: BLOOD SPECIMENOrdering Facility: [facility] Address:[address] [place], [place] [address]Performed By: #### 25902-7 ####[facility] LABIA [id number] [place], [place] [address]Gfknbytg granulocytes/100 WBC (Bld)0.2 %NormalTriHealth [facility] on above: Order Comment: Specimen Type: BLOOD SPECIMENOrdering Facility: [facility] Address:[address] [place], [place] [address]Performed By: #### 98845- 8 ####[facility] LABCLIA [id number] [place], [place] [address]Rsmbkaxaarc (Bld) [#/Vol]1.32 10*3/uLNormal1.00-4.00 [facility] on above:Order Comment: Specimen Type: BLOOD SPECIMENOrdering Facility: [facility] Address:[address] [place], [place] [address]Performed By: #### 36475-7 ####[facility] LABCLIA [id number] [place], [place] [address]Tnxqmiidrbt/100 WBC (Bld)21.7 %NormalTriHealth [facility] on above:Order Comment: Specimen Type: BLOOD SPECIMENOrdering Facility: [facility] Address:[address] [place], [place] [address]Performed By: #### 94144-9 ####[facility] LABCLIA [id number] [place], [place] [address]QLU (RBC) [Entitic mass]29.0 rpBffqwu30.0-34.0[facility] on above:Order Comment: Specimen Type: BLOOD SPECIMENOrdering Facility: [facility] Address:[address] [place], [place] [address]Performed By: #### 05909-1 ####[facility] LABCLIA [id number] [place], [place] [address]IUAQ (RBC) [Mass/Vol]33.1 g/xMCpbtwd16.5-36.0[facility] on above: Order Comment: Specimen Type: BLOOD SPECIMENOrdering Facility: [facility] Address:[address] [place], [place] [address]Performed By: #### 01759- 8 ####[facility] LABCLIA [id number] [place], [place] [address]RPY (RBC) [Entitic vol]87.7 yTRfnqtw73.0-100.0[facility] on above:Order Comment: Specimen Type: BLOOD SPECIMENOrdering Facility: [facility] Address:[address] [place], [place] [address]Performed By: #### 67366-3 ####[facility] LABIA [id number] [place], [place] [address]Wekdezbtx (Bld) [#/Vol]0.30 10*3/uLNormal<0.87[facility] on above:Order Comment: Specimen Type: BLOOD SPECIMENOrdering Facility: [facility] Address:[address] [place], [place] [address]Performed By: #### 43402- 8 ####[facility] LABCLIA [id number] [place], [place] [address]Ffeczivof/100 WBC (Bld)4.9 %NormalTriHealth [facility] on above:Order Comment: Specimen Type: BLOOD SPECIMENOrdering Facility: [facility] Address:[address] [place], [place] [address]Performed By: #### 56282-1 ####[facility] LABCLIA [id number] [place], [place] [address]Xirvmyzgbmn (Bld) [#/Vol]4.25 10*3/uLNormal1.45-7.50[facility] on above:Order Comment: Specimen Type: BLOOD SPECIMENOrdering Facility: [facility] Address:[address] [place], [place] [address]Performed By: #### 25581-2 ####[place] [facility] LABCLIA [id number] [place], [place] [address]Uznmxmhxbow/100 WBC (Bld)69.7 %NormalTriHealth Bethesda North Hospital on above:Order Comment: Specimen Type: BLOOD SPECIMENOrdering Facility: [facility] Address:[address] [place], [place] [address]Performed By: #### 03233-6 ####[facility] LABCLIA [id number] [place], [place] [address]Egmimzzzb RBC (Bld) [#/Vol] 10*3/uLNormal<0.01[facility] on above:Order Comment: Specimen Type: BLOOD SPECIMENOrdering Facility: [facility] Address:[address] [place], [place] [address]Performed By: #### 17599-5 ####[facility] LABCLIA [id number] [place], [place] [address]Vdpzdikya RBC/100 WBC (Bld) [Ratio]0.0 /100 WBCNormal [facility] on above:Order Comment: Specimen Type: BLOOD SPECIMENOrdering Facility: [facility] Address:[address] [place], [place] [address]Performed By: #### 27039-0 ####[facility] LABCLIA [id number] [place], [place] [address]Zdrjfcio mean volume (Bld) [Entitic vol]11.2 fLNormal9.0-12.7CMarietta Memorial Hospital on above:Order Comment: Specimen Type: BLOOD SPECIMENOrdering Facility: [facility] Address:[address] [place] [address] Performed By: #### 09766-9 ####[facility] LABIA [id number] [place], [place] [address]Pggikiiyc (Bld) [#/Vol]185 10*3/vSTaduon590-129JwmdbygllTriHealth [facility] on above:Order Comment: Specimen Type: BLOOD SPECIMENOrdering Facility: [facility] Address:[address] [place], [place] [address]Performed By: #### 70942-5 ####[facility] LABCLIA [id number] [place], [place] [address]YER (Bld) [#/Vol]3.89 10*6/uLLow3.90-5.20[facility] on above:Order Comment: Specimen Type: BLOOD SPECIMENOrdering Facility: [facility] Address:[address] [place], [place] [address]Performed By: #### 47247-2 ####[facility] LABCLIA [id number] [place], [place] [address]KVJ (Bld) [#/Vol]6.09 10*3/uL Normal3.70-11.00[facility] on above:Order Comment: Specimen Type: BLOOD SPECIMENOrdering Facility: [facility] Address:[address] [place], [place] [address]Performed By: #### 26755-2 ####NATALIO [facility] LABCLIA [id number] [place], [place] [address]YDT SerPl-mCncon 15-80-5019BYO [Mass/Vol]0.4 mg/dLNormal <0.9CMarietta Memorial Hospital on above:Order Comment: Specimen Type: BLOOD SPECIMENOrdering Facility: [facility] Address:[address] [place], [place] [address]Performed By: #### 56293-4, 1987-, 3015-3 ####[facility] LABCLIA [id number] [facility] [id number] [place] [address] OF [facility]AL HOSPITALComprehensive metabolic 2000 panelon 57-44-5694Tpkllbl [Mass/Vol]4.2 g/dLNormal3.9-4.9CMarietta Memorial Hospital on above:Order Comment: Specimen Type: BLOOD SPECIMENOrdering Facility: [facility] Address:[address] [place], [place] [address]Performed By: #### 2777-1, , ####RAJIVMNTOM [facility] LABCLIA [id number] [place], [place] [address]WYS [Catalytic activity/Vol]88 U/NUaafdq08-072DrswnqzafTriHealth [facility] on above:Order Comment: Specimen Type: BLOOD SPECIMENOrdering Facility: [facility] Address:[address] [place], [place] [address]Performed By: #### 2777- 1, , ####RAJIVMNTOM [facility] LABCLIA [id number] [place], [place] [address]ISR [Catalytic activity/Vol]26 U/LNormal7-38 [facility] on above:Order Comment: Specimen Type: BLOOD SPECIMENOrdering Facility: [facility] Address:[address] [place], [place] [address]Performed By: #### 2777-1, , ####NATALIO [facility] LABCLIA [id number] [place], [place] [address]Loxhk gap [Moles/Vol]13 mmol/LNormal8-15[facility] on above:Order Comment: Specimen Type: BLOOD SPECIMENOrdering Facility: [facility] Address:[address] [place] [address] Performed By: #### 2777-1, , ####[place]IO [facility] LABCLIA [id number] [place], [place] [address]VTX [Catalytic activity/Vol]27 U/QJlrixl41-35DpbsmkqotTriHealth [facility] on above:Order Comment: Specimen Type: BLOOD SPECIMENOrdering Facility: [facility] Address:[address] [place], [place] [address]Performed By: #### 2777- 1, , ####[place] [facility] LABCLIA [id number] [place], [place] [address]Xralhexxc [Mass/Vol]0.4 mg/dLNormal0.2-1.3 [facility] on above:Order Comment: Specimen Type: BLOOD SPECIMENOrdering Facility: [facility] Address:[address] [place], [place] [address]Performed By: #### 2777-1, , ####[place]IO [facility] LABCLIA [id number] [place], [place] [address]Kkuylee [Mass/Vol]9.3 mg/dLNormal8.5-10.2CMarietta Memorial Hospital on above:Order Comment: Specimen Type: BLOOD SPECIMENOrdering Facility: [facility] Address:[address] [place] [address] Performed By: #### 2777-1, , ####[facility] LABCLIA [id number] [place], [place] [address]Vbcigndn [Moles/Vol]99 mmol/ZPwlask23-051ZnsomfxliMercy Health Perrysburg Hospitalment on above:Order Comment: Specimen Type: BLOOD SPECIMENOrdering Facility: [facility] Address:[address] [place] [address]Eboqwnzou By: #### 2777- 1, , ####[facility] LABCLIA [id number] [place], [place] [address]VG5 [Moles/Vol]24 mmol/YCodlur59-48ImldauguqTriHealth [facility] on above:Order Comment: Specimen Type: BLOOD SPECIMENOrdering Facility: [facility] Address:[address] [place], [place] [address]Performed By: #### 2777-1, , ####[facility] LABCLIA [id number] [place], [place] [address]Rqirsymxhz [Mass/Vol]0.64 mg/dLNormal0.58-0.96[facility] Comment on above:Order Comment: Specimen Type: BLOOD SPECIMENOrdering Facility: [facility] Address:[address] [place] [address] Performed By: #### 2777-1, , ####[facility] LABCLIA [id number] [place], [place] [address]nFEZja SerPlBld CKD-EPI 0393747 mL/min/1.73m???Normal>=60[facility] on above:Order Comment: Specimen Type: BLOOD SPECIMENOrdering Facility: [facility] Address:[address] [place] [address]Fbnzjg Comment: Estimated Glomerular Filtration Rate (eGFR) is [...] reflect actual GFR.Performed By: #### 2777-1, , ####[facility] LABCLIA [id number] [place], [place] [address]Wngpckd [Mass/Vol]100 mg/zITntk87-58LfjsjxykkTriHealth [facility] on above:Order Comment: Specimen Type: BLOOD SPECIMENOrdering Facility: [facility] Address:[address] [place], [place] [address]Akyvnc Comment: The Citizen [place] Diabetes Association (ADA) provides guidance for cutoff [...] Standards of Medical Care in Diabetes 2016, [place] Diabetes Association. Diabetes Care. 2016.39(Suppl 1).Performed By: #### 2777-1, , ####[facility] LABCLIA [id number] [place], [place] [address]Xlbkcvmgm [Moles/Vol]4.0 mmol/LNormal3.7-5.1 [facility] on above:Order Comment: Specimen Type: BLOOD SPECIMENOrdering Facility: [facility] Address:[address] [place], [place] [address]Leuuvqeuw By: #### 2777-1, , ####[facility] LABCLIA [id number] [place], [place] [address]Hjmduvj [Mass/Vol]7.1 g/dLNormal6.3-8.0[facility] on above:Order Comment: Specimen Type: BLOOD SPECIMENOrdering Facility: [facility] Address:[address] [place], [place] [address]Performed By: #### 2777-1, , ####[facility] LABCLIA [id number] [place], [place] [address]Vqguql [Moles/Vol]136 mmol/L Mhkdxp079-125HvprkifthTriHealth [facility] on above:Order Comment: Specimen Type: BLOOD SPECIMENOrdering Facility: [facility] Address:[address] [place], [place] [address]Performed By: #### 2777-1, , ####[facility] LABCLIA [id number] [place], [place] [address]Vbdb nitrogen [Mass/Vol]16 mg/dLNormal7-21[facility] on above:Order Comment: Specimen Type: BLOOD SPECIMENOrdering Facility: [facility] Address:[address] [place], [place] [address]Performed By: #### 2777-1, , ####[facility] LABCLIA [id number] [place], [place] [address] binding capacity panelon 36-37-7135Zzby [Mass/Vol]48 ug/dL Zmrwlt71-945AaxebybiwTriHealth [facility] on above:Order Comment: Specimen Type: BLOOD SPECIMENOrdering Facility: [facility] Address:[address] [place], [place] [address]Performed By: #### 25033-7, 1987-, 3015-09 ####[facility] LABCLIA [id number] [address] [address] [facility] OF AMERICAIron binding capacity [Mass/Vol] 410 ug/fVEgqt381-747TvoqmvpawTriHealth [facility] on above:Order Comment: Specimen Type: BLOOD SPECIMENOrdering Facility: [facility] Address:[address] [place], [place] [address]Performed By: #### 50686-2, 1987-11, 3015-09 ####[facility] LABCLIA [id number] [place] [id number] [place] OF AMERICAIron/TIBC [Molar ratio]11.7 %Low 15.0-57.0[facility] Memorial HospitalComment on above:Order Comment: Specimen Type: BLOOD SPECIMENOrdering Facility: [facility] Address:[address] [place], [place] [address]Performed By: #### 24405-4, 1987-11, 3015-09 ####[facility] LABCLIA [id number] [place] [id number] [place] AMERICAMagnesium SerPl-mCncon 03-22-2025 Magnesium [Mass/Vol]1.8 mg/dLNormal1.7-2.3CMarietta Memorial Hospital on above:Order Comment: Specimen Type: BLOOD SPECIMENOrdering Facility: [facility] Address:[address] [place], [place] [address]Performed By: #### 2777-1, , ####[facility] LABCLIA [id number] [place], [place] [address]Iyruknbsg SerPl-mCncon 71-50-3951Qpftidumb [Mass/Vol]3.8 mg/dLNormal2.7-4.8CUniversity Hospitals Health System Comment on above:Order Comment: Specimen Type: BLOOD SPECIMENOrdering Facility: [facility] Address:[address] [place] [address] Performed By: #### 2777-1, , ####[facility] LABCLIA [id number] [place], [place] [address]UMH SerPl-aCnc on 80-90-0524ZBU Qn1.490 m[IU]/LNormal0.270-4.200[facility] Comment on above:Order Comment: Specimen Type: BLOOD SPECIMENOrdering Facility: [facility] Address:[address] [place], [place] [address]Result Comment: If the patient is , TSH reference range varies by gestational period:First Trimester (weeks 9-12): 0.180-2.990 mIU/LSecond Trimester: 0.110- 3.980 mIU/LThird Trimester: 0.480-4.710 mIU/LDjony Nova et al. A Practical Approach for the Verifications and Determination of Site- and Trimester-Specific Reference Intervals for Thyroid Function tests in . Thyroid, 2019:29:3:412-420. Wilver E, et al. 2017 Guidelines of the Citizen Of [place] Thyroid Association for the Diagnosis and Management of Thyroid Disease during and the . Thyroid, 2017:27:3:315-389.Performed By: #### 66576-4, 1987-5, 3016-3 ####[facility] LABCLIA [id number] [place] [address] [place] AMERICAC diff Tox gens Stl Ql CARLOTTA+probeon 03-14-2025. difficile toxin genes CARLOTTA+probe Ql (Stl)NegativeNormal Negative for C. difficile toxin by PCRMercy Health Perrysburg Hospitalment on above:Order Comment: Specimen Type: STOOL SPECIMENOrdering Facility: [facility] Address:[address] [place], [place] [address]Performed By: #### 21672-2 ####[address] [facility] HOSPITALIA [id number] [place] [address] [place] [facility]AL HOSPITALGastrointestinal pathogens identified CARLOTTA+probe Nom (Stl)on 97-09-2024Uefkqkxqhbnmt sp DNA CARLOTTA+probe Nom (Unsp spec)Not detectedNormalNot DetectedTriHealth [facility] on above:Order Comment: Specimen Type: STOOL SPECIMENOrdering Facility: [facility] Address:[address] [place], [place] [address]Performed By: #### 91607-8 ####[facility] LABIA [id number] [address] [place] Salmonella sp DNA CARLOTTA+probe Ql (Unsp spec)Not detectedNormalNot Detected [facility] on above:Order Comment: Specimen Type: STOOL SPECIMENOrdering Facility: [facility] Address:[address] [place], [place] [address]Performed By: #### 17700-2 ####[facility] LABCLIA [id number] [address] OF [facility] GENERAL HOSPITALShiga toxin stx gene CARLOTTA+probe Nom (Unsp spec)Not detectedNormalNot DetectedTriHealth [facility] on above:Order Comment: Specimen Type: STOOL SPECIMENOrdering Facility: [facility] Address:[address] [place], [place] [address]Performed By: #### 34303-5 ####[facility] LABCLIA [id number] [address] STATES OF [facility] GENERAL HOSPITALShigella sp DNA CARLOTTA+probe Ql (Unsp spec)Not detected NormalNot DetectedTriHealth [facility] on above:Order Comment: Specimen Type: STOOL SPECIMENOrdering Facility: [facility] Address:[address] [place], [place] [address]Performed By: #### 52136-0 ####[facility] LABCLIA [id number] [place] [address] [place] AMERICACNPNon 79-98-8529HVQSLbmlpb Dunlap Memorial HospitalCNPNon 53-51-9579VKABYhrlaiLlpjpflel Clinic [facility] CBC panel Auto (Bld)on 38-23-1576Lpjkkmaiaaj distribution width (RBC) [Ratio] 12.3 %Obscnl47.5-15.0[facility] on above:Order Comment: Specimen Type: BLOOD SPECIMENOrdering Facility: [facility] Address:[address] [place], [place] [address]Performed By: #### 35111-6 ####[facility] LABCLIA [id number] [place], [place] [address]Ixqjvteeqe (Bld) [Volume fraction]31.3 %Low36.0-46.0 [facility] on above:Order Comment: Specimen Type: BLOOD SPECIMENOrdering Facility: [facility] Address:[address] [place], [place] [address]Performed By: #### 66666-4 ####[facility] LABCLIA [id number] [place], [place] [address]Qbjzgjsqjw (Bld) [Mass/Vol]10.4 g/dLLow11.5-15.5CMari[facility] on above:Order Comment: Specimen Type: BLOOD SPECIMENOrdering Facility: [facility] Address:[address] [place], [place] [address]Performed By: #### 33379- 2 ####[facility] LABCLIA [id number] [place], [place] [address]EGM (RBC) [Entitic mass]29.5 mlRkyvwh85.0-34.0[facility] on above:Order Comment: Specimen Type: BLOOD SPECIMENOrdering Facility: [facility] Address:[address] [place], [place] [address]Performed By: #### 16832-4 ####[facility] LABCLIA [id number] [place], [place] [address]WWTD (RBC) [Mass/Vol]33.2 g/xWMntuzj02.5-36.0[facility] on above: Order Comment: Specimen Type: BLOOD SPECIMENOrdering Facility: [facility] Address:[address] [place], [place] [address]Performed By: #### 47602- 2 ####[facility] LABCLIA [id number] [place], [place] [address]FZI (RBC) [Entitic vol]88.9 fOVddgsa24.0-100.0[facility] on above:Order Comment: Specimen Type: BLOOD SPECIMENOrdering Facility: [facility] Address:[address] [place], [place] [address]Performed By: #### 58056-3 ####[facility] LABCLIA [id number] [place], [place] [address]Rrzwcqhbj RBC (Bld) [#/Vol]10*3/uLNormal<0.01[facility] on above:Order Comment: Specimen Type: BLOOD SPECIMENOrdering Facility: [facility] Address:[address] [place], [place] [address]Performed By: #### 87917- 2 ####[facility] LABCLIA [id number] [place], [place] [address]Pjhgdcne mean volume (Bld) [Entitic vol]11.1 fLNormal 9.0-12.7CMarietta Memorial Hospital on above:Order Comment: Specimen Type: BLOOD SPECIMENOrdering Facility: [facility] Address:[address] [place], [place] [address]Performed By: #### 21576-6 ####[facility] LABIA [id number] [place], [place] [address]Gcfudulrs (Bld) [#/Vol]369 10*3/qPPrwnlr831-035ZcovakvdeTriHealth [facility]hes[facility] on above: Order Comment: Specimen Type: BLOOD SPECIMENOrdering Facility: [facility] Address:[address] [place], [place] [address]Performed By: #### 77071- 2 ####[facility] LABCLIA [id number] [place], [place] [address]GHP (Bld) [#/Vol]3.52 10*6/uLLow3.90-5.20[facility] on above:Order Comment: Specimen Type: BLOOD SPECIMENOrdering Facility: [facility] Address:[address] [place], [place] [address]Performed By: #### 57829-1 ####[facility] LABCLIA [id number] [place], [place] [address]CJR (Bld) [#/Vol]6.32 10*3/uL Normal3.70-11.00[facility] on above:Order Comment: Specimen Type: BLOOD SPECIMENOrdering Facility: [facility] Address:[address] [place], [place] [address]Performed By: #### 39025-0 ####[facility] LABCLIA [id number] [place], [place] [address]ADUTmv 61-56-0662TOYZBvkypbXtxcupgjp [facility] metabolic 2000 panelon 88-09-2477Frrtzkw [Mass/Vol]4.1 g/dLNormal 3.9-4.9CUniversity Hospitals Health SystemComment on above:Order Comment: Specimen Type: BLOOD SPECIMENOrdering Facility: [facility] Address:[address] [place], [place] [address]Performed By: #### 2777-1, , ####[facility] LABCLIA [id number] [place], [place] [address]BGQ [Catalytic activity/Vol]102 U/INulcct85-926CxnyyteigTriHealth Bethesda North Hospital on above:Order Comment: Specimen Type: BLOOD SPECIMENOrdering Facility: [facility] Address:[address] [place], [place] [address]Performed By: #### 2777-1, , 85416-0 ####[facility] LABCLIA [id number] [place], [place] [address]XBW [Catalytic activity/Vol]16 U/LNormal7-38[facility] Comment on above:Order Comment: Specimen Type: BLOOD SPECIMENOrdering Facility: [facility] Address:[address] [place] [address] Performed By: #### 2777-1, , ####[facility] LABCLIA [id number] [place], [place] [address]Wzjyu gap [Moles/Vol]15 mmol/LNormal8-15[facility] on above:Order Comment: Specimen Type: BLOOD SPECIMENOrdering Facility: [facility] Address:[address] [place], [place] [address]Performed By: #### 2777- 1, , 59730-0 ####[facility] LABCLIA [id number] [place], [place] [address]HIY [Catalytic activity/Vol]18 U/LNormal 13-35[facility] on above:Order Comment: Specimen Type: BLOOD SPECIMENOrdering Facility: [facility] Address:[address] [place], [place] [address]Performed By: #### 2777-1, , 85084-6 ####[facility] LABCLIA [id number] [place], [place] [address]Cwqeiobnx [Mass/Vol]0.3 mg/dLNormal0.2-1.3CMarietta Memorial Hospital on above:Order Comment: Specimen Type: BLOOD SPECIMENOrdering Facility: [facility] Address:[address] [place], [place] [address]Performed By: #### 2777-1, , 42267-7 ####[facility] LABCLIA [id number] [place], [place] [address]Rftcjrz [Mass/Vol]9.1 mg/dLNormal8.5-10.2CMarietta Memorial Hospital on above:Order Comment: Specimen Type: BLOOD SPECIMENOrdering Facility: [facility] Address:[address] [place] [address] Performed By: #### 2777-1, , 50954-8 ####[facility] LABCLIA [id number] [place], [place] [address]Fakyicvd [Moles/Vol]101 mmol/DLxakiq27-575TjslbqdgqTriHealth [facility]hes[facility] on above: Order Comment: Specimen Type: BLOOD SPECIMENOrdering Facility: [facility] Address:[address] [place] [address]Dxtwsitou By: #### 2777- 1, , ####[facility] LABCLIA [id number] [place], [place] [address]MB1 [Moles/Vol]22 mmol/MQvmfmh87-75EaarxnhrxTriHealth [facility] on above:Order Comment: Specimen Type: BLOOD SPECIMENOrdering Facility: [facility] Address:[address] [place] [address]Egbzaodrv By: #### 2777-1, , ####[facility] LABCLIA [id number] [place], [place] [address]Squbwbakjd [Mass/Vol]0.54 mg/dLLow0.58-0.96[facility] Comment on above:Order Comment: Specimen Type: BLOOD SPECIMENOrdering Facility: [facility] Address:[address] [place], [place] [address] Performed By: #### 2777-1, , ####[facility] LABCLIA [id number] [place], [place] [address]rJNIhf SerPlBld CKD-EPI 4115897 mL/min/1.73m???Normal>=60[facility] on above:Order Comment: Specimen Type: BLOOD SPECIMENOrdering Facility: [facility] Address:[address] [place] [address]Jgoyzm Comment: Estimated Glomerular Filtration Rate (eGFR) is [...] reflect actual GFR.Performed By: #### 2777-1, , ####[facility] LABCLIA [id number] [place], [place] [address]Bhbxbdd [Mass/Vol]107 mg/tOPiio27-27YqzkgwbmrTriHealth Bethesda [facility] Hospital on above:Order Comment: Specimen Type: BLOOD SPECIMENOrdering Facility: [facility] Address:[address] [place] [address]Wxdjcn Comment: The [place] Diabetes Association (ADA) provides guidance for cutoff [...] Standards of Medical Care in Diabetes 2016, [place] Diabetes Association. Diabetes Care. 2016.39(Suppl 1).Performed By: #### 2777-1, , ####[facility] LABCLIA [id number] [place], [place] [address]Hvddrzuem [Moles/Vol]4.3 mmol/LNormal3.7-5.1 [facility] on above:Order Comment: Specimen Type: BLOOD SPECIMENOrdering Facility: [facility] Address:[address] [place] [address]Baetbzrzl By: #### 2777-1, , ####[facility] LABCLIA [id number] [place], [place] [address]Vwcurtc [Mass/Vol]7.2 g/dLNormal6.3-8.0[facility] on above:Order Comment: Specimen Type: BLOOD SPECIMENOrdering Facility: [facility] Address:[address] [place] [address]Sixhdagjf By: #### 2777-1, 39252-7, 41527-6 ####[facility] LABCLIA [id number] [place], [place] [address]Okfjwx [Moles/Vol]138 mmol/L Qgxpnr511-050XjrcmbxzmTriHealth [facility]hesda [facility] on above:Order Comment: Specimen Type: BLOOD SPECIMENOrdering Facility: [facility] Address:[address] [place], [place] [address]Performed By: #### 2777-1, 23630-9, 90636-1 ####[facility] LABCLIA [id number] [place], [place] [address]Ribx nitrogen [Mass/Vol]22 mg/dLHigh7-21[facility] on above:Order Comment: Specimen Type: BLOOD SPECIMENOrdering Facility: [facility] Address:[address] [place], [place] [address]Performed By: #### 2777-1, , 77469-5 ####[facility] LABCLIA [id number] [place], [place] [address]Ctufunjll SerPl-mCncon 76-15-9990Xryhefwjd [Mass/Vol]2.0 mg/dLNormal1.7-2.3CMarietta Memorial Hospital on above:Order Comment: Specimen Type: BLOOD SPECIMENOrdering Facility: [facility] Address:[address] [place], [place] [address]Performed By: #### 2777-1, , 00259-9 ####[facility] LABCLIA [id number] [place], [place] [address]Qdoonzgyt SerPl-mCncon 63-49-4662Nvtrioztb [Mass/Vol]4.3 mg/dLNormal2.7-4.8 [facility] on above:Order Comment: Specimen Type: BLOOD SPECIMENOrdering Facility: [facility] Address:[address] [place], [place] [address]Performed By: #### 2777-1, , 25272-8 ####[facility] LABCLIA [id number] [place], [place] [address]DGU panel Auto (Bld)on 68-00-0517Zwtsgcwtdbb distribution width (RBC) [Ratio]12.8 %11.5 - 15.0 %[facility] HospitalHematocrit (Bld) [Volume fraction]32.1 %Low36.0 - 46.0 %[facility] HospitalHemoglobin (Bld) [Mass/Vol]10.6 g/dLLow11.5 - 15.5 g/dLUc West Chester HospitalInterpretation and review of laboratory resultsAbnormal [facility] HospitalMCH (RBC) [Entitic mass]29.7 pg26.0 - 34.0 pgCCleveland Clinic Children's Hospital for Rehabilitation MCHC (RBC) [Mass/Vol]33.0 g/dL30.5 - 36.0 g/dLUc West Chester HospitalMCV (RBC) [Entitic vol]89.9 fL80.0 - 100.0 fLCCleveland Clinic Children's Hospital for RehabilitationNucleated RBC (Bld) [#/Vol]NINF [facility] HospitalPlatelet mean volume (Bld) [Entitic vol]10.5 fL9.0 - 12.7 fL [facility] HospitalPlatelets (Bld) [#/Vol]401 10*3/uLHighUc West Chester HospitalRBC (Bld) [#/Vol]3.57 10*6/uLLow3.90 - 5.20 m/uLUc West Chester HospitalWBC (Bld) [#/Vol]7.63 10*3/uLBlanchard Valley Health System Blanchard Valley HospitalErythrocyte distribution width (RBC) [Ratio]12.8 %Vstlrb78.5-15.0[facility] on above:Order Comment: Specimen Type: BLOOD SPECIMENOrdering Facility: [facility] Address:[address] [place], [place] [address]Performed By: #### 51821- 2 ####[facility] LABCLIA [id number] [place], [place] [address]Ohipijrpez (Bld) [Volume fraction]32.1 %Low36.0-46.0 [facility] on above:Order Comment: Specimen Type: BLOOD SPECIMENOrdering Facility: [facility] Address:[address] [place], [place] [address]Performed By: #### 50076-0 ####[facility] LABIA [id number] [place], [place] [address]Lrhkvecccr (Bld) [Mass/Vol]10.6 g/dLLow11.5-15.5CMarietta Memorial Hospital on above:Order Comment: Specimen Type: BLOOD SPECIMENOrdering Facility: [facility] Address:[address] [place], [place] [address]Performed By: #### 88785- 2 ####[facility] LABIA [id number] [place], [place] [address]SCH (RBC) [Entitic mass]29.7 tnAcijxq94.0-34.0[facility] on above:Order Comment: Specimen Type: BLOOD SPECIMENOrdering Facility: [facility] Address:[address] [place], [place] [address]Performed By: #### 37939-5 ####[facility] LABIA [id number] [place], [place] [address]GDEW (RBC) [Mass/Vol]33.0 g/vHHpcrac09.5-36.0[facility] on above: Order Comment: Specimen Type: BLOOD SPECIMENOrdering Facility: [facility] Address:[address] [place], [place] [address]Performed By: #### 49002- 2 ####[facility] LABIA [id number] [place], [place] [address]KCE (RBC) [Entitic vol]89.9 rNCesppl59.0-100.0[facility] on above:Order Comment: Specimen Type: BLOOD SPECIMENOrdering Facility: [facility] Address:[address] [place], [place] [address]Performed By: #### 77131-3 ####[facility] LABCLIA [id number] [place], [place] [address]Hfxzffysp RBC (Bld) [#/Vol]10*3/uLNormal<0.01[facility] on above:Order Comment: Specimen Type: BLOOD SPECIMENOrdering Facility: [facility] Address:[address] [place], [place] [address]Performed By: #### 44771- 2 ####[facility] LABCLIA [id number] [place], [place] [address]Dqitikec mean volume (Bld) [Entitic vol]10.5 fLNormal 9.0-12.7CMarietta Memorial Hospital on above:Order Comment: Specimen Type: BLOOD SPECIMENOrdering Facility: [facility] Address:[address] [place], [place] [address]Performed By: #### 34018-5 ####[facility] LABIA [id number] [place], [place] [address]Twsjezort (Bld) [#/Vol]401 10*3/rXTjqx891-538ZviujfxcxTriHealth [facility] on above: Order Comment: Specimen Type: BLOOD SPECIMENOrdering Facility: [facility] Address:[address] [place], [place] [address]Performed By: #### 16825- 2 ####[facility] LABCLIA [id number] [place], [place] [address]TWK (Bld) [#/Vol]3.57 10*6/uLLow3.90-5.20[facility] on above:Order Comment: Specimen Type: BLOOD SPECIMENOrdering Facility: [facility] Address:[address] [place], [place] [address]Performed By: #### 88433-6 ####[facility] LABCLIA [id number] [place], [place] [address]WXH (Bld) [#/Vol]7.63 10*3/uL Normal3.70-11.00[facility] on above:Order Comment: Specimen Type: BLOOD SPECIMENOrdering Facility: [facility] Address:[place], [place] [address]Zqovtoicq By: #### 26578-6 ####[facility] LABCLIA [id number] [place], [place] [address]BYJXst 67-61-9089NDISAywjpxHoaiohummLakeHealth [facility] metabolic 2000 panelOrdered By: Raheem Pozo on 10-33-2278Dstegre [Mass/Vol]3.9 g/dL3.9 - 4.9 g/dLLarimer ClinicALP [Catalytic activity/Vol]133 U/LHigh34 - 123 U/LCleveland ClinicALT [Catalytic activity/Vol]27 U/L7 - 38 U/L [facility] HospitalAnion gap [Moles/Vol]11 mmol/L8 - 15 mmol/LCleveland ClinicAST [Catalytic activity/Vol]39 U/LHigh13 - 35 U/LCleveland ClinicBilirubin [Mass/Vol]0.4 mg/dL0.2 - 1.3 mg/dLLarimer ClinicCalcium [Mass/Vol]9.2 mg/dL8.5 - 10.2 mg/dLLarimer ClinicChloride [Moles/Vol]99 mmol/L98 - 107 mmol/L [facility] ClinicCO2 [Moles/Vol]23 mmol/L22 - 30 mmol/LCleveland ClinicCreatinine [Mass/Vol]0.61 mg/dL0.58 - 0.96 mg/dLUc West Chester HospitalGFR/1.73 sq M.predicted among non-blacks MDRD (S/P/Bld) [Vol rate/Area]118 mL/min/{1.73_m2}- PINF [facility] on above:Estimated Glomerular Filtration Rate (eGFR) is calculated using the 2020 CKD-EPI creatinine equation. This equation utilizes serum creatinine, sex, and age as parameters. The creatinine assay has traceable calibration to isotope dilution-mass spectrometry. Refer to KDIGO guidelines for clinical interpretation. In patients with unstable renal function, e.g. those with acute kidney injury, the eGFRmay not accurately reflect actual GFR.Glucose [Mass/Vol]104 mg/dNIvhf26 - 99 mg/dLPremier Health Miami Valley Hospital on above:The [place] Diabetes Association (ADA) provides guidance for cutoff [...] Standards of Medical Care in Diabetes 2016, [place] Diabetes Association. Diabetes Care. 2016.39(Suppl 1). Interpretation and review of laboratory resultsAbnormalCleveland ClinicPotassium [Moles/Vol]4.1 mmol/L3.7 - 5.1 mmol/LCmercy health west hospital ClinicProtein [Mass/Vol]7.4 g/dL 6.3 - 8.0 g/dLFairfield Medical Centerodium [Moles/Vol]133 mmol/LYzq792 - 144 mmol/L [facility] HospitalUrea nitrogen [Mass/Vol]15 mg/dL7 - 21 mg/dLOhio State Harding HospitalComprehensive metabolic 2000 panelon 80-98-2193Shccuqb [Mass/Vol]3.9 g/dLNormal3.9-4.9CMarietta Memorial Hospital on above:Order Comment: Specimen Type: BLOOD SPECIMENOrdering Facility: [facility] Address:[address] [place] [address]Cmqmbdgbq By: #### 2777- 1, , ####[facility] LABCLIA [id number] [place], [place] [address]QYK [Catalytic activity/Vol]133 U/LHigh 34-123[facility] on above:Order Comment: Specimen Type: BLOOD SPECIMENOrdering Facility: [facility] Address:[address] [place] [address]Nznlqkogr By: #### 2777-1, , ####[facility] LABCLIA [id number] [facility]ENARIZ[facility] [place] [address]UPW [Catalytic activity/Vol]27 U/LNormal7-38[facility] on above:Order Comment: Specimen Type: BLOOD SPECIMENOrdering Facility: [facility] Address:[address] [place], [place] [address]Performed By: #### 2777-1, , ####[facility] LABCLIA [id number] [place], [place] [address]Ztxqv gap [Moles/Vol]11 mmol/LNormal8-15[facility] on above:Order Comment: Specimen Type: BLOOD SPECIMENOrdering Facility: [facility] Address:[address] [place] [address] Performed By: #### 2777-1, , ####[facility] LABCLIA [id number] [place], [place] [address]FXA [Catalytic activity/Vol]39 U/EZplv22-21GxpzocvkpTriHealth [facility] on above:Order Comment: Specimen Type: BLOOD SPECIMENOrdering Facility: [facility] Address:[address] [place], [place] [address]Performed By: #### 2777- 1, , ####[facility] LABCLIA [id number] [place], [place] [address]Rkisbycvw [Mass/Vol]0.4 mg/dLNormal0.2-1.3 [facility] on above:Order Comment: Specimen Type: BLOOD SPECIMENOrdering Facility: [facility] Address:[address] [place], [place] [address]Performed By: #### 2777-1, , ####[facility] LABCLIA [id number] [place], [place] [address]Ftxsgdr [Mass/Vol]9.2 mg/dLNormal8.5-10.2CMarietta Memorial Hospital on above:Order Comment: Specimen Type: BLOOD SPECIMENOrdering Facility: [facility] Address:[address] [place] [address] Performed By: #### 2777-1, , ####[facility] LABCLIA [id number] [place], [place] [address]Frsyekpc [Moles/Vol]99 mmol/LAktmjf17-310SeghsbbaeMercy Health Perrysburg Hospitalment on above:Order Comment: Specimen Type: BLOOD SPECIMENOrdering Facility: [facility] Address:[address] [place], [place] [address]Performed By: #### 2777- 1, , ####[facility] LABCLIA [id number] [place], [place] [address]VE2 [Moles/Vol]23 mmol/MMgmeqh50-77HgqqwfewrTriHealth [facility] on above:Order Comment: Specimen Type: BLOOD SPECIMENOrdering Facility: [facility] Address:[address] [place], [place] [address]Performed By: #### 2777-1, , ####[facility] LABCLIA [id number] [place], [place] [address]Mfhioukydm [Mass/Vol]0.61 mg/dLNormal0.58-0.96[facility] Comment on above:Order Comment: Specimen Type: BLOOD SPECIMENOrdering Facility: [facility] Address:[address] [place] [address] Performed By: #### 2777-1, , ####[facility] LABCLIA [id number] [place], [place] [address]wJFHby SerPlBld CKD-EPI 6205527 mL/min/1.73m???Normal>=60[facility] on above:Order Comment: Specimen Type: BLOOD SPECIMENOrdering Facility: [facility] Address:[address] [place], [place] [address]Fthdon Comment: Estimated Glomerular Filtration Rate (eGFR) is [...] reflect actual GFR.Performed By: #### 2777-1, , ####[facility] LABCLIA [id number] [place], [place] [address]Thmcjnz [Mass/Vol]104 mg/xIYlml25-70GwtelpqoxTriHealth [facility] on above:Order Comment: Specimen Type: BLOOD SPECIMENOrdering Facility: [facility] Address:[address] [place], [place] [address]Result Comment: The [place] Diabetes Association (ADA) provides guidance for cutoff [...] Standards of Medical Care in Diabetes 2016, [place] Diabetes Association. Diabetes Care. 2016.39(Suppl 1).Performed By: #### 2777-1, , ####[facility] LABCLIA [id number] [place], [place] [address]Vilnkwvmx [Moles/Vol]4.1 mmol/LNormal3.7-5.1 [facility] on above:Order Comment: Specimen Type: BLOOD SPECIMENOrdering Facility: [facility] Address:[address] [place] [address]Jkkqhpxwy By: #### 2777-1, , ####[facility] LABCLIA [id number] [place], [place] [address]Sqssqcw [Mass/Vol]7.4 g/dLNormal6.3-8.0[facility] on above:Order Comment: Specimen Type: BLOOD SPECIMENOrdering Facility: [facility] Address:[address] [place], [place] [address]Performed By: #### 2777-1, , ####[facility] LABCLIA [id number] [place], [place] [address]Hjexfy [Moles/Vol]133 mmol/L Bff724-865JbzrxlmevTriHealth Bethesda North Hospital on above:Order Comment: Specimen Type: BLOOD SPECIMENOrdering Facility: [facility] Address:[address] [place], [place] [address]Performed By: #### 2777-1, , ####[facility] LABCLIA [id number] [place], [place] [address]Tmth nitrogen [Mass/Vol]15 mg/dLNormal7-21[facility] on above:Order Comment: Specimen Type: BLOOD SPECIMENOrdering Facility: [facility] Address:[address] [place], [place] [address]Performed By: #### 2777-1, , ####[facility] LABCLIA [id number] [place], [place] [address]OUQIKHKLGwg 82-98-9307Umdiqosqe [Mass/Vol]1.9 mg/dL1.7 - 2.3 mg/dLUc West Chester HospitalMagnesium SerPl-mCncon 71-95-9575Slnznweiv [Mass/Vol]1.9 mg/dLNormal 1.7-2.3CMarietta Memorial Hospital on above:Order Comment: Specimen Type: BLOOD SPECIMENOrdering Facility: [facility] Address:[address] [place] [address]Vndjargid By: #### 2777-1, 07806-5, 76353-7 ####[facility] LABCLIA [id number] [place], [place] [address]Rlteeoyur [Mass/Vol]on 94-55-9840Mlirapqfuiuanu and review of laboratory resultsNormalCKettering Health Greene MemorialPHOSPHORUS INORGANICon 44-67-0047Ldhakiuoe [Mass/Vol]4.1 mg/dL2.7 - 4.8 mg/dLUc West Chester HospitalPhosphate SerPl-mCncon 03-65-6940Evazodspz [Mass/Vol]4.1 mg/dLNormal 2.7-4.8CMarietta Memorial Hospital on above:Order Comment: Specimen Type: BLOOD SPECIMENOrdering Facility: [facility] Address:[address] [place], [place] [address]Performed By: #### 2777-1, 29728-0, 63982-6 ####[facility] LABCLIA [id number] [place], [place] [address]Imxxtdhds [Mass/Vol]on 88-71-3347Tbhnbhdbtudepc and review of laboratory resultsNormalCKettering Health Greene MemorialCNPNon 84-83-6606NGVQBkhkodXptnmoljt Clinic ClevelandCASE MANAGEMon 03-45-9415WNXL MANAGEMNormalDunlap Memorial HospitalCB panel Auto (Bld)on 02-23-2025 Erythrocyte distribution width (RBC) [Ratio]13.2 %Indbyn58.5-15.0[facility] on above:Order Comment: Specimen Type: BLOOD SPECIMENOrdering Facility: [facility] Address:[address] [place], [place] [address]Performed By: #### 83634-5 ####[facility] LABCLIA [id number] [place] [address] [place] OF AMERICAHematocrit (Bld) [Volume fraction]27.6 %Low36.0-46.0[facility] on above:Order Comment: Specimen Type: BLOOD SPECIMENOrdering Facility: [facility] Address:[address] [place], [place] [address]Performed By: #### 59209-0 ####[facility] LABIA [id number] [place] [address] [place] Hemoglobin (Bld) [Mass/Vol]9.3 g/dLLow11.5-15.5CMarietta Memorial Hospital on above:Order Comment: Specimen Type: BLOOD SPECIMENOrdering Facility: [facility] Address:[address] [place] [address] Performed By: #### 92205-7 ####[facility] [id number] [place] [address] [place] MCH (RBC) [Entitic mass]30.1 fsJzxbvt70.0-34.0[facility] on above:Order Comment: Specimen Type: BLOOD SPECIMENOrdering Facility: [facility] Address:[address] [place] [address] Performed By: #### 23712-3 ####[facility] [id number] [place] [address] [place] MCHC (RBC) [Mass/Vol]33.7 g/gTDpvjar36.5-36.0[facility] on above:Order Comment: Specimen Type: BLOOD SPECIMENOrdering Facility: [facility] Address:[address] [place] [address] Performed By: #### 17760-7 ####[facility] [id number] [place] [address] [place] MCV (RBC) [Entitic vol]89.3 nGIeapgz50.0-100.0[facility] on above:Order Comment: Specimen Type: BLOOD SPECIMENOrdering Facility: [facility] Address:[address] [place] [address] Performed By: #### 78743-5 ####[facility] [id number] [place] [address] [place] Nucleated RBC (Bld) [#/Vol]10*3/uLNormal<0.01[facility] on above:Order Comment: Specimen Type: BLOOD SPECIMENOrdering Facility: [facility] Address:[address] [place] [address] Performed By: #### 73542-3 ####[facility] [id number] [place] [address] [place] Platelet mean volume (Bld) [Entitic vol]10.5 fLNormal9.0-12.7CM[facility] on above:Order Comment: Specimen Type: BLOOD SPECIMENOrdering Facility: [facility] Address:[address] [place], [place] [address]Performed By: #### 45858-7 ####[facility] [id number] [place] [address] [place] Platelets (Bld) [#/Vol]268 10*3/oDKluacc563-694AqmktrgwwTriHealth [facility] on above:Order Comment: Specimen Type: BLOOD SPECIMENOrdering Facility: [facility] Address:[address] [place] [address] Performed By: #### 13362-8 ####[facility]OSPITALIA [id number] [place] [address] [place] RBC (Bld) [#/Vol]3.09 10*6/uLLow3.90-5.20[facility] on above:Order Comment: Specimen Type: BLOOD SPECIMENOrdering Facility: [facility] Address:[address] [place], [place] [address]Performed By: #### 36945-9 ####[facility] LABIA [id number] [place] [address] [place] AMERICAWBC (Bld) [#/Vol]6.34 10*3/uLNormal3.70-11.00[facility] on above:Order Comment: Specimen Type: BLOOD SPECIMENOrdering Facility: [facility] Address:[address] [place], [place] [address]Performed By: #### 04169-9 ####[facility] LABCLIA [id number] [place] [id number] [place] OF AMERICACNDSon 25-47-6687SCZMMlkwgi [facility] Memorial HospitalCONSULT PROGon 75-80-9647EJKVVTG PROGNormalDunlap Memorial HospitalCRP SerPl-mCncon 47-45-7396RGJ [Mass/Vol]7.0 mg/dLHigh<0.9 [facility] on above:Order Comment: Specimen Type: BLOOD SPECIMENOrdering Facility: [facility] Address:[address] [place], [place] [address]Performed By: #### 1987-11, ####[facility] LABCLIA [id number] [place] [id number] [place] OF AMERICARenal function 2000 panelon 21-35-0222Mbcrmik [Mass/Vol]3.1 g/dLLow3.9-4.9CMarietta Memorial Hospital on above:Order Comment: Specimen Type: BLOOD SPECIMENOrdering Facility: [facility] Address:[address] [place], [place] [address]Performed By: #### 1987-11, ####[facility] LABCLIA [id number] [place] [id number] [place] AMERICAAnion gap [Moles/Vol]14 mmol/LNormal8-15[facility] on above:Order Comment: Specimen Type: BLOOD SPECIMENOrdering Facility: [facility] Address:[address] [place], [place] [address]Performed By: #### 1987-11, ####[facility] LABCLIA [id number] [facility]D AVENUENAPA STATE HOSPITALK [id number] [place] [address] [place] AMERICACalcium [Mass/Vol]9.0 mg/dLNormal8.5-10.2CMarietta Memorial Hospital on above:Order Comment: Specimen Type: BLOOD SPECIMENOrdering Facility: [facility] Address:[address] [place], [place] [address]Performed By: #### 1987-11, ####[facility] LABCLIA [id number] [facility]D AVENUENAPA STATE HOSPITALK [place] [address] [place] AMERICAChloride [Moles/Vol]101 mmol/GQstpst08-732EwpiodgiaDunlap Memorial Hospital Comment on above:Order Comment: Specimen Type: BLOOD SPECIMENOrdering Facility: [facility] Address:[address] [place] [address] Performed By: #### 1987-11, ####[facility] LABCLIA [id number] [facility] [place] [address] [place] CO2 [Moles/Vol]22 mmol/FAxfosb93-53ZtjudobiyTriHealth Bethesda North Hospital on above: Order Comment: Specimen Type: BLOOD SPECIMENOrdering Facility: [facility] Address:[address] [place], [place] [address]Performed By: #### , ####[facility] LABCLIA [id number] [facility] ENUEDESK [place] [address] [place] AMERICACreatinine [Mass/Vol] 0.38 mg/dLLow0.58-0.96[facility] on above:Order Comment: Specimen Type: BLOOD SPECIMENOrdering Facility: [facility] Address:[address] [place], [place] [address]Performed By: #### 1987-11, ####[facility] LABCLIA [id number] [facility]ERK [address] [address] [place] OF AMERICAeGFRcr SerPlBld CKD-EPI 8236926 mL/min/1.73m???Normal>=60[facility] on above:Order Comment: Specimen Type: BLOOD SPECIMENOrdering Facility: [facility] Address:[address] [place], [place] [address]Result Comment: Estimated Glomerular Filtration Rate (eGFR) is [...] accurately reflect actual GFR.Performed By: #### 1987-, 08786-5 ####[facility] LABCLIA [id number] [place] [address] [place] AMERICAGlucose [Mass/Vol]114 mg/dLHigh 74-99[facility] on above:Order Comment: Specimen Type: BLOOD SPECIMENOrdering Facility: [facility] Address:[address] [facility] HOSPITALHaleigh [place], [place] [address]Result Comment: The [place] Diabetes Association (ADA) provides guidance for cutoff [...] Standards of Medical Care in Diabetes 2016, [place] Diabetes Association. Diabetes Care. 2016.39(Suppl 1).Performed By: #### 1987-, 83749-2 ####[facility] LABCLIA [id number] [facility] [place] [address] [place] AMERICAPhosphate [Mass/Vol]4.2 mg/dLNormal2.7-4.8CMarietta Memorial Hospital on above:Order Comment: Specimen Type: BLOOD SPECIMENOrdering Facility: [facility] Address:[address] [place], [place] [address]Performed By: #### 1987-11, ####[facility] LABCLIA [id number] [place] [id number] [place] AMERICAPotassium [Moles/Vol]4.4 mmol/L Normal3.7-5.1CMarietta Memorial Hospital on above:Order Comment: Specimen Type: BLOOD SPECIMENOrdering Facility: [facility] Address:[address] [place], [place] [address]Performed By: #### 1987-11, ####[facility] LABIA [id number] [place] [id number] [place] [facility] GENERAL HOSPITALSodium [Moles/Vol]137 mmol/CGyyxhl187-125OdqkwaqopTriHealth Bethesda North Hospital on above:Order Comment: Specimen Type: BLOOD SPECIMENOrdering Facility: [facility] Address:[address] [place], [place] [address]Performed By: #### 1987-11, ####[facility] LABIA [id number] [place] [id number] [place] AMERICAUrea nitrogen [Mass/Vol]16 mg/dLNormal-[facility] on above:Order Comment: Specimen Type: BLOOD SPECIMENOrdering Facility: [facility] Address:[address] [place], [place] [address]Performed By: #### 1987-11, ####[facility] LABIA [id number] [place] [id number] [place] AMERICACASE MANAGEMon 80-86-6479KEIB MANAGEMNormalCenterville panel Auto (Bld)on 08-81-3719Cbdqdswwoyr distribution width (RBC) [Ratio]13.2 % Cbpmup85.5-15.0[facility] on above:Order Comment: Specimen Type: BLOOD SPECIMENOrdering Facility: [facility] Address:[address] [place], [place] [address]Performed By: #### 73762-2 ####[facility] LABCLIA [id number] [address] STREETHematocrit (Bld) [Volume fraction]26.5 %Low36.0-46.0[facility] on above:Order Comment: Specimen Type: BLOOD SPECIMENOrdering Facility: [facility] Address:[address] [place], [place] [address]Performed By: #### 43257- 2 ####[facility] LABIA [id number] [address] OF [facility] GENERAL HOSPITALHemoglobin (Bld) [Mass/Vol]8.6 g/dLLow11.5-15.5CMarietta Memorial Hospital on above:Order Comment: Specimen Type: BLOOD SPECIMENOrdering Facility: [facility] Address:[address] [place], [place] [address]Performed By: #### 37605-3 ####[facility] LABIA [id number] [address] ST[address]ETMCH (RBC) [Entitic mass]29.8 pg Afljfm92.0-34.0[facility] on above:Order Comment: Specimen Type: BLOOD SPECIMENOrdering Facility: [facility] Address:[address] [place], [place] [address]Performed By: #### 27506-9 ####[facility] LABIA [id number] [address] (RBC) [Mass/Vol]32.5 g/dL Yncfza01.5-36.0[facility] on above:Order Comment: Specimen Type: BLOOD SPECIMENOrdering Facility: [facility] Address:[address] [place], [place] [address]Performed By: #### 24881-5 ####[facility] LABBRATTLEB[facility] [id number] [place] [address] [place] [facility] GENERAL HOSPITALMCV (RBC) [Entitic vol]91.7 fL Sftibn61.0-100.0[facility] on above:Order Comment: Specimen Type: BLOOD SPECIMENOrdering Facility: [facility] Address:[address] [place], [place] [address]Performed By: #### 19945-3 ####[facility] LABIA [id number] [address]ucleated RBC (Bld) [#/Vol] 10*3/uLNormal<0.01[facility] on above:Order Comment: Specimen Type: BLOOD SPECIMENOrdering Facility: [facility] Address:[address] [place], [place] [address]Performed By: #### 20717-7 ####[facility] [id number] [address] OF AMERICAPlatelet mean volume (Bld) [Entitic vol]10.6 fLNormal9.0-12.7CMarietta Memorial Hospital on above: Order Comment: Specimen Type: BLOOD SPECIMENOrdering Facility: [facility] Address:[address] [place], [place] [address]Performed By: #### 46407- 2 ####[facility] LABBRATTLEBORO MEMORIAL [facility]OSPITAL [id number] [place] [address] [place] AMERICAPlatelets (Bld) [#/Vol]228 10*3/qWMludyd839-223EpkoxfcjvTriHealth Bethesda [facility] on above:Order Comment: Specimen Type: BLOOD SPECIMENOrdering Facility: [facility] Address:[address] [place], [place] [address]Performed By: #### 14449-5 ####[facility] LABIA [id number] [place] [address] [place] AMERICARBC (Bld) [#/Vol]2.89 10*6/uLLow 3.90-5.20[facility] on above:Order Comment: Specimen Type: BLOOD SPECIMENOrdering Facility: [facility] Address:[address] [place], [place] [address]Performed By: #### 21537-7 ####[facility] LABCLIA [id number] [place] [address] [place] AMERICAWBC (Bld) [#/Vol]6.35 10*3/uLNormal3.70-11.00[facility] on above:Order Comment: Specimen Type: BLOOD SPECIMENOrdering Facility: [facility] Address:[address] [place], [place] [address]Performed By: #### 22778-6 ####[facility] LABCLIA [id number] [place] [address] [place] AMERICACNPNon 79-22-4022YLZCSskvafSuqxteqgt Clinic ClevelandCONSULT PROGon 37-31-0794OEIBFOW PROGNormalDunlap Memorial HospitalCRP SerPl-mCncon 94-27-9034KSD [Mass/Vol]10.3 mg/dLHigh<0.9CMari[facility] Hospital on above:Order Comment: Specimen Type: BLOOD SPECIMENOrdering Facility: [facility] Address:[address] [place], [place] [address]Performed By: #### 1987-11, , ####[facility] LABCLIA [id number] [place] [id number] [place] Magnesium SerPl-mCncon 14-25-0325Mdxgwhjap [Mass/Vol]2.1 mg/dLNormal1.7-2.3 [facility] on above:Order Comment: Specimen Type: BLOOD SPECIMENOrdering Facility: [facility] Address:[address] [place], [place] [address]Performed By: #### 1987-11, , ####[facility] LABCLIA [id number] [address] [place] AMERICANURSING PROGon 93-92-1662SVXJTVD PROGNormal [facility] NorthvelandNUTRITIONon 73-83-0805BYJJYNELJTimkihUghqzkbld [facility] RidgePT EDon 53-27-8331MB EDNormalCCleveland Clinic [facility] ClevelandRenal function 2000 panelon 17-74-3474Ivldvyo [Mass/Vol]3.3 g/dLLow3.9-4.9ClevelSycamore Medical Center on above:Order Comment: Specimen Type: BLOOD SPECIMENOrdering Facility: [facility] Address:[address] [place], [place] [address]Performed By: #### 1987-11, , ####[facility] LABIA [id number] VILLE [id number] [place] AMERICAAnion gap [Moles/Vol]12 mmol/LNormal8-15[facility] on above:Order Comment: Specimen Type: BLOOD SPECIMENOrdering Facility: [facility] Address:[address] [place], [place] [address]Performed By: #### 1987-11, , ####[facility] LABIA [id number] VILLE [id number] [place] AMERICACalcium [Mass/Vol]8.9 mg/dLNormal8.5-10.2ClevelSycamore Medical Center on above:Order Comment: Specimen Type: BLOOD SPECIMENOrdering Facility: [facility] Address:[address] [place], [place] [address]Performed By: #### 1987-11, , ####[facility] LABIA [id number] [place]ILLE [id number] [place] AMERICAChloride [Moles/Vol]103 mmol/USrdpxg59-732VtwemjkuiTriHealth Bethesda North Hospital on above:Order Comment: Specimen Type: BLOOD SPECIMENOrdering Facility: [facility] Address:[address] [place], [place] [address]Performed By: #### 1987-11, , ####[facility] LABIA [id number] [place]ILLE [id number] [place] AMERICACO2 [Moles/Vol]25 mmol/RSzmhle52-38KdqqwkcrhDunlap Memorial Hospital Comment on above:Order Comment: Specimen Type: BLOOD SPECIMENOrdering Facility: [facility] Address:[address] [place] [address] Performed By: #### 1987-11, , ####[facility] [id number] VILLE [id number] [place] AMERICACreatinine [Mass/Vol]0.39 mg/dLLow0.58-0.96[facility] Comment on above:Order Comment: Specimen Type: BLOOD SPECIMENOrdering Facility: [facility] Address:[address] [place] [address] Performed By: #### 1987-11, , ####[facility] [id number] VILLE [id number] [place] AMERICAeGFRcr SerPlBld CKD-EPI 6857712 mL/min/1.73m???Normal>=60Dunlap Memorial HospitalComment on above:Order Comment: Specimen Type: BLOOD SPECIMENOrdering Facility: [facility] Address:[address] [place], [place] [address]Result Comment: Estimated Glomerular Filtration Rate (eGFR) is [...] actual GFR. Performed By: #### 1987-11, , ####[facility] LABBRATTLEBORO MEMORIAL [facility]OSPITAL [id number] AVENUEDESK [id number] [place], [place] [address] [place] AMERICAGlucose [Mass/Vol]105 mg/nGNmme63-80XaiblkkbzTriHealth [facility] on above:Order Comment: Specimen Type: BLOOD SPECIMENOrdering Facility: [facility] Address:[address] [place], [place] [address]Result Comment: The [place] Diabetes Association (ADA) provides guidance for cutoff [...] Standards of Medical Care in Diabetes 2016, [place] Diabetes Association. Diabetes Care. 2016.39(Suppl 1).Performed By: #### 1987-11, , ####[facility] LABBRATTLEBORO MEMORIAL HOSPITAL [id number] [place]IL[place] [id number] [place] AMERICAPhosphate [Mass/Vol]4.9 mg/dLHigh2.7-4.8CMarietta Memorial Hospital on above:Order Comment: Specimen Type: BLOOD SPECIMENOrdering Facility: [facility] Address:[address] [place], [place] [address]Performed By: #### 1987-11, , ####[facility] LABBRATTLEBORO MEMORIAL HOSPITAL [id number] VILLE [id number] [place] AMERICAPotassium [Moles/Vol]4.3 mmol/LNormal3.7-5.1 [facility] on above:Order Comment: Specimen Type: BLOOD SPECIMENOrdering Facility: [facility] Address:[address] [place], [place] [address]Performed By: #### 1987-11, , ####[facility] LABCLIA [id number] [address] [place] AMERICASodium [Moles/Vol]140 mmol/MMouigl609-526RazolruvwTriHealth [facility] on above:Order Comment: Specimen Type: BLOOD SPECIMENOrdering Facility: [facility] Address:[address] [place], [place] [address]Performed By: #### 1987-11, , 05272-0 ####[facility] LABCLIA [id number] [address] [place] AMERICAUrea nitrogen [Mass/Vol]13 mg/dLNormal7- [facility] on above:Order Comment: Specimen Type: BLOOD SPECIMENOrdering Facility: [facility] Address:[address] [place], [place] [address]Performed By: #### 1987-11, , 13659-9 ####[facility] LABIA [id number] [address] [place] AMERICATHERAPY NTon 09-27-3722IUCSLVI NTNormalCUniversity Hospitals Health SystemCASE MANAGEMon 51-72-6701AARY MANAGEMNormalDunlap Memorial HospitalCB panel Auto (Bld)on 25-13-3638Sezhevzacwp distribution width (RBC) [Ratio]13.2 %Mldydo00.5-15.0[facility] on above:Order Comment: Specimen Type: BLOOD SPECIMENOrdering Facility: [facility] Address:[address] [place], [place] [address]Performed By: #### 03839- 2 ####[facility] LABIA [id number] [place] [id number] [place] AMERICAHematocrit (Bld) [Volume fraction]25.1 %Low36.0-46.0[facility] on above:Order Comment: Specimen Type: BLOOD SPECIMENOrdering Facility: [facility] Address:[address] [place], [place] [address]Performed By: #### 94341- 2 ####[facility] LABIA [id number] [address]ETHemoglobin (Bld) [Mass/Vol]8.1 g/dLLow11.5-15.5CMarietta Memorial Hospital on above:Order Comment: Specimen Type: BLOOD SPECIMENOrdering Facility: [facility] Address:[address] [place], [place] [address]Performed By: #### 88274-9 ####[facility] [id number] [address] (RBC) [Entitic mass]31.0 pg Ycjhzp24.0-34.0[facility] on above:Order Comment: Specimen Type: BLOOD SPECIMENOrdering Facility: [facility] Address:[address] [place], [place] [address]Performed By: #### 12112-8 ####[facility] [id number] [address]ETMCHC (RBC) [Mass/Vol]32.3 g/dL Vrqmfl00.5-36.0[facility] on above:Order Comment: Specimen Type: BLOOD SPECIMENOrdering Facility: [facility] Address:[address] [place], [place] [address]Performed By: #### 31076-6 ####[facility] LABIA [id number] [address] (RBC) [Entitic vol]96.2 fL Lgwrrv20.0-100.0[facility] on above:Order Comment: Specimen Type: BLOOD SPECIMENOrdering Facility: [facility] Address:[address] [place], [place] [address]Performed By: #### 88260-0 ####[facility] LABIA [id number] [place] [address] [place] AMERICANucleated RBC (Bld) [#/Vol] 10*3/uLNormal<0.01[facility] on above:Order Comment: Specimen Type: BLOOD SPECIMENOrdering Facility: [facility] Address:[address] [place], [place] [address]Performed By: #### 06466-1 ####[facility] LABCLIA [id number] [place] [address] [place] AMERICAPlatelet mean volume (Bld) [Entitic vol]12.1 fLNormal9.0-12.7CMarietta Memorial Hospital on above: Order Comment: Specimen Type: BLOOD SPECIMENOrdering Facility: [facility] Address:[address] [place], [place] [address]Performed By: #### 98157- 2 ####[facility] LABCLIA [id number] [place] [address] [place] AMERICAPlatelets (Bld) [#/Vol]197 10*3/uYVuynop389-367AyebmaacsTriHealth [facility] on above:Order Comment: Specimen Type: BLOOD SPECIMENOrdering Facility: [facility] Address:[address] [place], [place] [address]Performed By: #### 34942-8 ####[facility] LABCLIA [id number] [place] [address] [place] AMERICARBC (Bld) [#/Vol]2.61 10*6/uLLow 3.90-5.20[facility] on above:Order Comment: Specimen Type: BLOOD SPECIMENOrdering Facility: [facility] Address:[address] [place], [place] [address]Performed By: #### 53163-9 ####[facility] LABCLIA [id number] [place] [address] [place] AMERICAWBC (Bld) [#/Vol]6.61 10*3/uLNormal3.70-11.00[facility] on above:Order Comment: Specimen Type: BLOOD SPECIMENOrdering Facility: [facility] Address:[address] [place], [place] [address]Performed By: #### 57175-3 ####[facility] LABCLIA [id number] [facility]D [facility]ENTERK [id number] [place] [address] [place] AMERICACR SerPl-mCnc 42-46-3859IHN [Mass/Vol]9.4 mg/dLHigh<0.9ClevelSycamore Medical Center on above:Order Comment: Specimen Type: BLOOD SPECIMENOrdering Facility: [facility] Address:[address] [place], [place] [address]Performed By: #### 1988-5, 88422-5, 58042-0 ####[facility] LABCLIA [id number] [address] [place] AMERICAComprehensive metabolic 2000 panelon 02-21-2025 Albumin [Mass/Vol]3.0 g/dLLow3.9-4.9ClevelSycamore Medical Center on above: Order Comment: Specimen Type: BLOOD SPECIMENOrdering Facility: [facility] Address:[address] [place], [place] [address]Performed By: #### 86542- 8, 2777-1 ####[facility] LABCLIA [id number] [facility] HOSPITALLID AV ENWOOD[facility] [place] [address] [place] AMERICAALP [Catalytic activity/Vol]137 U/TGnsk56-106QnotlybrkTriHealth [facility] on above:Order Comment: Specimen Type: BLOOD SPECIMENOrdering Facility: [facility] Address:[address] [place], [place] [address]Performed By: #### 29365- 8, 2777-1 ####[facility] LABCLIA [id number] [facility] HOSPITALLID AV ENUEDESK [id number] [place], [place] [address] [place] AMERICAALT [Catalytic activity/Vol]15 U/LNormal7-38[facility] on above:Order Comment: Specimen Type: BLOOD SPECIMENOrdering Facility: [facility] Address:[address] [place], [place] [address]Performed By: #### 91492- 8, 277- ####[facility] LABCLIA [id number] [facility] HOSPITALHaleigh E[id number], [place] [address] [place] AMERICAAnion gap [Moles/Vol]11 mmol/LNormal8-15[facility] on above:Order Comment: Specimen Type: BLOOD SPECIMENOrdering Facility: [facility] Address:[address] [place], [place] [address]Performed By: #### 27317-9, 277- ####[facility] LABCLIA [id number] [address] [address] [place] AMERICAAST [Catalytic activity/Vol]14 U/FRhbpaz68-46CqnsczkapTriHealth [facility] on above:Order Comment: Specimen Type: BLOOD SPECIMENOrdering Facility: [facility] Address:[address] [place], [place] [address]Performed By: #### 81774-9, 2776- ####[facility] LABCLIA [id number] [address], [facility]95 [place] AMERICABilirubin [Mass/Vol]0.5 mg/dLNormal0.2-1.3 [facility] on above:Order Comment: Specimen Type: BLOOD SPECIMENOrdering Facility: [facility] Address:[address] [place], [place] [address]Performed By: #### 55288-0, 2776- ####[facility] LABCLIA [id number] [facility] [address] [address] [place] OF AMERICACalcium [Mass/Vol]8.3 mg/dLLow8.5-10.2CMari[facility] on above:Order Comment: Specimen Type: BLOOD SPECIMENOrdering Facility: [facility] Address:[address] [place], [place] [address]Performed By: #### 34046-4, 277- ####[facility] LABCLIA [id number] [facility]D AVENUENAPA [facility]OSPITALK [id number] [place], [place] [id number] [place] AMERICAChloride [Moles/Vol]103 mmol/LEvxuoy71-095ViqcrjmzvDunlap Memorial Hospital Comment on above:Order Comment: Specimen Type: BLOOD SPECIMENOrdering Facility: [facility] Address:[address] [place] [address] Performed By: #### 20505-7, 2776- ####[facility] LABIA [id number] [facility] [place] [id number] [place] CO2 [Moles/Vol]23 mmol/SSyzpxa55-18ZrzvojipfDunlap Memorial HospitalComment on above: Order Comment: Specimen Type: BLOOD SPECIMENOrdering Facility: [facility] Address:[address] [place], [place] [address]Performed By: #### 30568- 8, 2776-07 ####[facility] LABIA [id number] [facility], [place] [address] [place] AMERICACreatinine [Mass/Vol] 0.35 mg/dLLow0.58-0.96[facility] HospitalComment on above:Order Comment: Specimen Type: BLOOD SPECIMENOrdering Facility: [facility] Address:[address] [place], [place] [address]Performed By: #### 24931-5, 27701-02 ####[facility] LABIA [id number] [facility] AVENUENAPA STATE HOSPITALK [place] [id number] [place] OF AMERICAeGFRcr SerPlBld CKD-EPI 9939790 mL/min/1.73m???Normal>=60[facility] HospitalComtr[facility] on above:Order Comment: Specimen Type: BLOOD SPECIMENOrdering Facility: [facility] Address:[address] [place], [place] [address]Result Comment: Estimated Glomerular Filtration Rate (eGFR) is [...] not accurately reflect actual GFR.Performed By: #### 36777-5, 2776-07 ####[facility] LABCLIA [id number] [facility]D AVENUEDESK [id number] [place] [address] [place] OF AMERICAGlucose [Mass/Vol]118 mg/dLHigh 74-99[facility] on above:Order Comment: Specimen Type: BLOOD SPECIMENOrdering Facility: [facility] Address:[address] [id number] Comment: The Citizen [place] Diabetes Association (ADA) provides guidance for cutoff [...] Standards of Medical Care in Diabetes 2016, [place] Diabetes Association. Diabetes Care. 2016.39(Suppl 1).Performed By: #### 91707- 8, 2776-07 ####[facility] LABCLIA [id number] [facility]OSPITALLID AV ENUEDESK [id number] [place], [place] [address] [place] AMERICAPotassium [Moles/Vol]4.1 mmol/LNormal3.7-5.1CMarietta Memorial Hospital on above:Order Comment: Specimen Type: BLOOD SPECIMENOrdering Facility: [facility] Address:[address] [facility] HOSPITALHaleigh [place] [id number] By: #### 33046-5, 2776-07 ####[facility] LABCLIA [id number] [facility] HOSPITALLID AVENUEDESK [address] [address] [place] AMERICAProtein [Mass/Vol]5.8 g/dLLow 6.3-8.0[facility] on above:Order Comment: Specimen Type: BLOOD SPECIMENOrdering Facility: [facility] Address:[address] [place], [place] [address]Performed By: #### 02057-9, 2777-1 ####[facility] LABCLIA [id number] [place] [id number] [place] OF AMERICASodium [Moles/Vol]137 mmol/OCmwbtg689-441FnlpecigpTriHealth Bethesda North [facility] on above:Order Comment: Specimen Type: BLOOD SPECIMENOrdering Facility: [facility] Address:[address] [place], [place] [address]Performed By: #### 88906-9, 2777- ####[facility] LABIA [id number] [place] [address] [place] AMERICAUrea nitrogen [Mass/Vol]15 mg/dLNormal7-21[facility] on above:Order Comment: Specimen Type: BLOOD SPECIMENOrdering Facility: [facility] Address:[address] [place], [place] [address]Performed By: #### 74180-8, 2777-1 ####[facility] LABIA [id number] [place] [address] [place] AMERICAMagnesium SerPl-mCncon 04-44-4490Xsmxuculz [Mass/Vol]2.6 mg/dLHigh1.7-2.3 [facility] on above:Order Comment: Specimen Type: BLOOD SPECIMENOrdering Facility: [facility] Address:[address] [place], [place] [address]Performed By: #### 1988-5, 04112-5, 07831-3 ####[facility] LABCLIA [id number] [address], [facility]95 [place] OF AMERICANURSING PROGon 23-35-4442IRXMLUU PROGNormal [facility] Memorial HospitalNUTRITIONon 29-29-7230ABXGVEBCVJyboxhWjbwhwtjc Clinic ClevelandPhosphate SerPl-mCncon 90-60-2217Jgbijhnuf [Mass/Vol]4.1 mg/dLNormal 2.7-4.8CUniversity Hospitals Health SystemComtrinity health [facility] on above:Order Comment: Specimen Type: BLOOD SPECIMENOrdering Facility: [facility] Address:[address] [place], [place] [address]Result Comment: Result rechecked.Performed By: #### 44990-3, 2777-1 ####[facility] LABCLIA [id number] [place] [id number] [place] OF AMERICARenal function 2000 panelon 03-82-4412Jxjqght [Mass/Vol]2.7 g/dLLow3.9-4.9ClevelRutherford Regional Health System Comment on above:Order Comment: Specimen Type: BLOOD SPECIMENOrdering Facility: [facility] Address:[address] [place] [address] Performed By: #### 1987-11, , 80359-7 ####[facility] LABCLIA [id number] VILLE [id number] [place] AMERICAAnion gap [Moles/Vol]18 mmol/LHigh8-15[facility] on above:Order Comment: Specimen Type: BLOOD SPECIMENOrdering Facility: [facility] Address:[address] [place], [place] [address] Performed By: #### 1987-11, , 83100-4 ####[facility] LABCLIA [id number] [address] [place] AMERICACalcium [Mass/Vol]8.0 mg/dLLow8.5-10.2CUniversity Hospitals Health SystemComtrinity health [facility] hospital on above:Order Comment: Specimen Type: BLOOD SPECIMENOrdering Facility: [facility] Address:[address] [place], [place] [address] Performed By: #### 1987-11, , 91913-3 ####[facility] LABCLIA [id number] VILLE [address] [place] AMERICAChloride [Moles/Vol]98 mmol/ASoyyqi37-360RksakzgroDunlap Memorial Hospital Comment on above:Order Comment: Specimen Type: BLOOD SPECIMENOrdering Facility: [facility] Address:[address] [place], [place] [address] Performed By: #### 1987-11, , ####[facility] LABBRATTLEB[facility] [id number] VILLE [address] [place] AMERICACO2 [Moles/Vol]18 mmol/OMuf26-44VjfkbkcciDunlap Memorial HospitalComment on above:Order Comment: Specimen Type: BLOOD SPECIMENOrdering Facility: [facility] Address:[address] [place], [place] [address]Performed By: #### 1987-11, , ####[facility] [id number] VILLE [address] [place] Creatinine [Mass/Vol]0.42 mg/dLLow0.58-0.96[facility] Memorial HospitalComment on above:Order Comment: Specimen Type: BLOOD SPECIMENOrdering Facility: [facility] Address:[address] [place], [place] [address]Performed By: #### 1987-11, , ####[facility] [id number] VILLE [address] [place] eGFRcr SerPlBld CKD-EPI 6004993 mL/min/1.73m???Normal>=60[facility] Memorial HospitalComment on above:Order Comment: Specimen Type: BLOOD SPECIMENOrdering Facility: [facility] Address:[address] [place], [place] [address]Result Comment: Estimated Glomerular Filtration Rate (eGFR) is [...] actual GFR. Performed By: #### 1987-11, , ####[facility] LABCLIA [id number] [address] [place] AMERICAGlucose [Mass/Vol]559 mg/mJBfcl16-37QzgaowezhTriHealth [facility] on above:Order Comment: Specimen Type: BLOOD SPECIMENOrdering Facility: [facility] Address:[address] [place], [place] [address]Result Comment: The [place] Diabetes Association (ADA) provides guidance for cutoff [...] Standards of Medical Care in Diabetes 2016, [place] Diabetes Association. Diabetes Care. 2016.39(Suppl 1).Performed By: #### 1987-11, , ####[facility] LABCLIA [id number] [address] [place] AMERICAPhosphate [Mass/Vol]6.7 mg/dLHigh2.7-4.8CMarietta Memorial Hospital on above:Order Comment: Specimen Type: BLOOD SPECIMENOrdering Facility: [facility] Address:[address] [place], [place] [address]Dztrwzclv By: #### 1987-11, , ####[facility] LABCLIA [id number] [address] [place] AMERICAPotassium [Moles/Vol]5.4 mmol/LHigh3.7-5.1 [facility] on above:Order Comment: Specimen Type: BLOOD SPECIMENOrdering Facility: [facility] Address:[address] [place] [address]Nfnpxjkwq By: #### 1987-11, , ####[facility] LABCLIA [id number] [address] [place] AMERICASodium [Moles/Vol]134 mmol/LPvg860-096KiqmkienvTriHealth [facility] on above:Order Comment: Specimen Type: BLOOD SPECIMENOrdering Facility: [facility] Address:[address] [place] [address]Walqscebt By: #### 1987-11, , ####[facility] LABCLIA [id number] VILLE [id number] [place] AMERICAUrea nitrogen [Mass/Vol]12 mg/dLNormal7-21 [facility] on above:Order Comment: Specimen Type: BLOOD SPECIMENOrdering Facility: [facility] Address:[address] [place] [address]Mmzanfara By: #### 1987-11, , ####[facility] LABIA [id number] VILLE [id number] [place] OF AMERICATHERAPY NTon 65-79-1197MCXGLUP NTNormalCUniversity Hospitals Health System25([place])D3 SerPl-mCncon 713712-jcqzomgpspmhta D3 [Mass/Vol] 31.2 ng/hCHoeczx10.0-80.0[facility] on above:Order Comment: Specimen Type: BLOOD SPECIMENOrdering Facility: [facility] Address:[address] [place] [address]Kagfep Comment: Classification of 25 [place] Vitamin D status:Deficiency/Insufficiency: < or = 30 ng/ml.Sufficiency/Optimal Levels: 31-80 ng/mLToxicity: > 100 ng/mL.Test performed by chemiluminescent immunoassay.Performed By: #### 1988-09 ####[facility] LABIA [id number] [address] STATES OF [facility] HOSPITALCBC panel Auto (Bld)on 02-20-2025 Erythrocyte distribution width (RBC) [Ratio]13.1 %Nreebd25.5-15.0[facility] on above:Order Comment: Specimen Type: BLOOD SPECIMENOrdering Facility: [facility] Address:[address] [place], [place] [address]Performed By: #### 61266-6 ####[facility]OSPITALIA [id number] [address] STATES OF [facility] GENERAL HOSPITALHematocrit (Bld) [Volume fraction]26.2 %Low36.0-46.0[facility] on above:Order Comment: Specimen Type: BLOOD SPECIMENOrdering Facility: [facility] Address:[address] [place], [place] [address]Performed By: #### 18481-3 ####[facility] HOSPITALIA [id number] [address] [place] Hemoglobin (Bld) [Mass/Vol]8.7 g/dLLow11.5-15.5CMarietta Memorial Hospital on above:Order Comment: Specimen Type: BLOOD SPECIMENOrdering Facility: [facility] Address:[address] [place] [address] Performed By: #### 61785-1 ####[facility] LABIA [id number] [place] [address] [place] MCH (RBC) [Entitic mass]30.1 foXmwlnq56.0-34.0[facility] on above:Order Comment: Specimen Type: BLOOD SPECIMENOrdering Facility: [facility] Address:[address] [place] [address] Performed By: #### 78830-9 ####[facility] LABIA [id number] [place] [address] [place] MCHC (RBC) [Mass/Vol]33.2 g/nXOjqymy39.5-36.0[facility] on above:Order Comment: Specimen Type: BLOOD SPECIMENOrdering Facility: [facility] Address:[address] [place] [address] Performed By: #### 53625-2 ####[facility] LABIA [id number] [place] [address] [place] MCV (RBC) [Entitic vol]90.7 aKSzwgdm78.0-100.0[facility] on above:Order Comment: Specimen Type: BLOOD SPECIMENOrdering Facility: [facility] Address:[address] [place] [address] Performed By: #### 49056-3 ####[facility] [id number] [place] [address] [place] Nucleated RBC (Bld) [#/Vol]10*3/uLNormal<0.01[facility] on above:Order Comment: Specimen Type: BLOOD SPECIMENOrdering Facility: [facility] Address:[address] [place] [address] Performed By: #### 58822-6 ####[facility] HOSPITALIA [id number] [place] [address] [place] Platelet mean volume (Bld) [Entitic vol]10.8 fLNormal9.0-12.7CMarietta Memorial Hospital on above:Order Comment: Specimen Type: BLOOD SPECIMENOrdering Facility: [facility] Address:[address] [place], [place] [address]Performed By: #### 67975-2 ####[facility] LABIA [id number] [place] [address] [place] Platelets (Bld) [#/Vol]194 10*3/nMSarwvk339-205VnnyzdztuTriHealth Bethesda North Hospital on above:Order Comment: Specimen Type: BLOOD SPECIMENOrdering Facility: [facility] Address:[address] [place] [address] Performed By: #### 84766-5 ####[facility] LABIA [id number] [place] [address] [place] RBC (Bld) [#/Vol]2.89 10*6/uLLow3.90-5.20[facility] on above:Order Comment: Specimen Type: BLOOD SPECIMENOrdering Facility: [facility] Address:[address] [place], [place] [address]Performed By: #### 97623-4 ####[facility] [id number] [place] [address] [place] [facility] GENERAL HOSPITALWBC (Bld) [#/Vol]6.01 10*3/uLNormal3.70-11.00[facility] on above:Order Comment: Specimen Type: BLOOD SPECIMENOrdering Facility: [facility] Address:[address] [place], [place] [address]Performed By: #### 99808-2 ####[facility] HOSPITALIA [id number] [place] [address] [place] AMERICACONSULT PROGon 19-05-7980WDNNMON PROGNormalDunlap Memorial HospitalCRP SerPl-mCncon 91-22-6539GRN [Mass/Vol] 11.4 mg/dLHigh<0.9ClevelSycamore Medical Center on above:Order Comment: Specimen Type: BLOOD SPECIMENOrdering Facility: [facility] Address:[address] [place], [place] [address]Performed By: #### 1988-5, 01373-6, 32677-1, 2571-8 ####[facility] LABIA [id number] [place] [address] [place] AMERICAMagnesium SerPl-mCncon 19-38-4296Czvriqdxx [Mass/Vol]2.0 mg/dLNormal1.7-2.3CUniversity Hospitals Health System Comment on above:Order Comment: Specimen Type: BLOOD SPECIMENOrdering Facility: [facility] Address:[address] [place] [address] Performed By: #### 1987-11, , 10097-4, 8 ####[facility] LABCLIA [id number] [place] [id number] [facility]'S HOSPITALUTRITIONon 12-36-4436CHZSVCQYCZcithuDywhqpnrj [facility] Renal function 2000 panelon 00-28-3885Kcoeuhe [Mass/Vol]3.1 g/dLLow3.9-4.9 [facility] Memorial HospitalComment on above:Order Comment: Specimen Type: BLOOD SPECIMENOrdering Facility: [facility] Address:[address] [place], [place] [address]Performed By: #### 1987-11, , 91480-8, 2571-02 ####[facility] LABCLIA [id number] [place] [id number] [place] AMERICAAnion gap [Moles/Vol]10 mmol/L Normal8-15[facility] Memorial HospitalComment on above:Order Comment: Specimen Type: BLOOD SPECIMENOrdering Facility: [facility] Address:[address] [place], [place] [address]Performed By: #### 1987-11, , , 2571-02 ####[facility] LABCLIA [id number] [facility]ERK [place] [id number] [place] OF AMERICACalcium [Mass/Vol]8.4 mg/dLLow 8.5-10.2CUniversity Hospitals Health SystemComtrinity health livingston hospital on above:Order Comment: Specimen Type: BLOOD SPECIMENOrdering Facility: [facility] Address:[address] [place], [place] [address]Performed By: #### 1987-11, , 36791-5, 8 ####[facility] LABCLIA [id number] [place] [id number] [place] AMERICAChloride [Moles/Vol]102 mmol/L Xjmwgt86-476UhcmuoajvTriHealth [facility]hesda [facility] on above:Order Comment: Specimen Type: BLOOD SPECIMENOrdering Facility: [facility] Address:[address] [place], [place] [address]Performed By: #### 1987-11, , 62904-5, 2578 ####[facility] LABCLIA [id number] [place] [id number] [place] AMERICACO2 [Moles/Vol]25 mmol/LNormal 22-30[facility] on above:Order Comment: Specimen Type: BLOOD SPECIMENOrdering Facility: [facility] Address:[address] [place], [place] [address]Performed By: #### 1987-11, , 83410-2, 2578 ####[facility] LABCLIA [id number] [address] STATES OF AMERICACreatinine [Mass/Vol]0.37 mg/dL Low0.58-0.96[facility] on above:Order Comment: Specimen Type: BLOOD SPECIMENOrdering Facility: [facility] Address:[address] [place], [place] [address]Performed By: #### 1987-11, , 09611-7, 2578 ####[facility] LABCLIA [id number] [place] [id number] [place] AMERICAeGFRcr SerPlBld CKD-EPI 3054072 mL/min/1.73m???Normal>=60[facility] on above:Order Comment: Specimen Type: BLOOD SPECIMENOrdering Facility: [facility] Address:[address] [place], [place] [address]Result Comment: Estimated Glomerular Filtration Rate (eGFR) is [...] GFR.Performed By: #### 1987-11, , , 2571-02 ####[facility] LABCLIA [id number] [facility] [id number] [place] [address] [place] STATES OF [facility]AL HOSPITALGlucose [Mass/Vol]117 mg/fJRzpd63-77MgaivimyoTriHealth Bethes[facility] on above:Order Comment: Specimen Type: BLOOD SPECIMENOrdering Facility: [facility] Address:[address] [place], [place] [address]Result Comment: The [place] Diabetes Association (ADA) provides guidance for cutoff [...] Standards of Medical Care in Diabetes 2016, [place] Diabetes Association. Diabetes Care. 2016.39(Suppl 1). Performed By: #### 1987-11, , , 2571-02 ####[facility] LABCLIA [id number] [facility]ERK [id number] [place] [address] [place] AMERICAPhosphate [Mass/Vol]3.3 mg/dLNormal2.7-4.8CMarietta Memorial Hospital on above:Order Comment: Specimen Type: BLOOD SPECIMENOrdering Facility: [facility] Address:[address] [place] [id number] By: #### 1987-11, , , 2571-02 ####[facility] LABCLIA [id number] [facility] [id number] [place] [address] [place] AMERICAPotassium [Moles/Vol]3.3 mmol/LLow3.7-5.1CMarietta Memorial Hospital on above:Order Comment: Specimen Type: BLOOD SPECIMENOrdering Facility: [facility] Address:[address] [place], [place] [address]Performed By: #### 1987-11, , 04262-2, 257-8 ####[facility] LABCLIA [id number] [place] [id number] [place] [facility] PSYCHIATRIC CENTERSodium [Moles/Vol]137 mmol/L Lnknuy910-237DlvhxaqruTriHealth Bethesda North Hospital on above:Order Comment: Specimen Type: BLOOD SPECIMENOrdering Facility: [facility] Address:[address] [place], [place] [address]Performed By: #### 1987-11, , 73150-4, 257-8 ####[facility] LABCLIA [id number] [place] [id number] [place] OF AMERICAUrea nitrogen [Mass/Vol]14 mg/dL Normal7-21[facility] on above:Order Comment: Specimen Type: BLOOD SPECIMENOrdering Facility: [facility] Address:[address] [place], [place] [address]Performed By: #### 1987-11, , 73856-7, 2578 ####[facility] LABIA [id number] [place] [id number] [place] AMERICATHERAPY NTon 39-20-7198BKLOHGR NTNormalCUniversity Hospitals Health SystemTrigl SerPl-mCncon 62-93-4723Orqrixttkllu [Mass/Vol]128 mg/dLNormal<150[facility] on above:Order Comment: Specimen Type: BLOOD SPECIMENOrdering Facility: [facility] Address:[address] [place], [place] [address]Result Comment: <150 mg/dL, Normal 150-199 mg/dL, Borderline high 200-499 mg/dL, High>499 mg/dL, Very highReference:1. National Cholesterol Education Program ATP III Guideline At-A-Glance QuickDesk Reference: National Heart, Lung, and Blood [place]. National Institutes of Health. 2001: NIHPublication No. 01-3305.Performed By: #### 1987-11, , 84107-0, 2571-8 ####[facility] LABCLIA [id number] [place] [id number] [place] Triglyceride [Mass/Vol]on 44-62-7905GBWVCEL TIME0 hrsNormalCMarietta Memorial Hospital on above:Order Comment: Specimen Type: BLOOD SPECIMENOrdering Facility: [facility] Address:[address] [place], [place] [address]Performed By: #### 1987-11, , 74062-7, 2570-8 ####[facility] LABCLIA [id number] [place] [id number] [place] [facility]YCHIATRIC CENTERBasic metabolic 2000 panelon 55-34-0325Srsbq gap [Moles/Vol]12 mmol/LNormal8-15[facility] on above:Order Comment: Specimen Type: BLOOD SPECIMENOrdering Facility: [facility] Address:[address] [place], [place] [address]Performed By: #### 29513- 2, 61660-7, , 2776- ####[facility] LABCLIA [id number] [place] [id number] [place] Calcium [Mass/Vol]8.1 mg/dLLow8.5-10.2CMarietta Memorial Hospital on above:Order Comment: Specimen Type: BLOOD SPECIMENOrdering Facility: [facility] Address:[address] [place], [place] [address]Performed By: #### 21292-6, 13169-2, , 2776-1 ####[facility] LABCLIA [id number] [place] [id number] [place] Chloride [Moles/Vol]103 mmol/UMmhwzo12-434JgytthrqsTriHealth [facility] on above:Order Comment: Specimen Type: BLOOD SPECIMENOrdering Facility: [facility] Address:[address] [place] [address]Gziwnmltn By: #### 34490-3, 32370-3, 71556-7, 2777-1 ####[facility] LABCLIA [id number] [place] [id number] [place] CO2 [Moles/Vol]23 mmol/MZwzwjr18-41JyzykejpeTriHealth [facility]hes[facility] on above: Order Comment: Specimen Type: BLOOD SPECIMENOrdering Facility: [facility] Address:[address] [place], [place] [address]Performed By: #### 24770- 2, 44877-5, 42984-5, 7-1 ####[facility] LABCLIA [id number] [address] [place] Creatinine [Mass/Vol]0.37 mg/dLLow0.58-0.96[facility] on above:Order Comment: Specimen Type: BLOOD SPECIMENOrdering Facility: [facility] Address:[address] [place], [place] [address]Performed By: #### 04902-0, 46561-3, 36892-0, 7-1 ####[facility] LABCLIA [id number] [place] [id number] [place] eGFRcr SerPlBld CKD-EPI 2105812 mL/min/1.73m???Normal>=60[facility] on above:Order Comment: Specimen Type: BLOOD SPECIMENOrdering Facility: [facility] Address:[address] [place], [place] [address]Result Comment: Estimated Glomerular Filtration Rate (eGFR) is [...] accurately reflect actual GFR. Performed By: #### 00742-1, 21538-1, , 2776-07 ####[facility] LABCLIA [id number] [facility] [address] [address] [place] AMERICAGlucose [Mass/Vol]111 mg/zLXcqb72-02JzrvybouuDunlap Memorial Hospital Comment on above:Order Comment: Specimen Type: BLOOD SPECIMENOrdering Facility: [facility] Address:[address] [place], [place] [address]Result Comment: The Citizen [place] Diabetes Association (ADA) provides guidance for cutoff [...] Standards of Medical Care in Diabetes 2016, [place] Diabetes Association. Diabetes Care. 2016.39(Suppl 1).Performed By: #### 33257-8, 71899-0, , 2776-07 ####[facility] LABCLIA [id number] [facility] [id number], [place] [address] [place] AMERICAPotassium [Moles/Vol]4.0 mmol/L Normal3.7-5.1CUniversity Hospitals Health SystemComment on above:Order Comment: Specimen Type: BLOOD SPECIMENOrdering Facility: [facility] Address:[address] [id number] By: #### 06257-0, 50659-9, , 2776-07 ####[facility] LABCLIA [id number] [facility] [id number] [place] [address] [place] AMERICASodium [Moles/Vol]138 mmol/L Dklenb622-498FvrzqggfbTriHealth [facility] on above:Order Comment: Specimen Type: BLOOD SPECIMENOrdering Facility: [facility] Address:[address] [place], [place] [address]Performed By: #### 02198-8, 61362-8, 75892-2, 2777-1 ####[facility] LABCLIA [id number] [address] STATES OF [facility]AL HOSPITALUrea nitrogen [Mass/Vol]12 mg/dL Normal7-21[facility] on above:Order Comment: Specimen Type: BLOOD SPECIMENOrdering Facility: [facility] Address:[address] [place], [place] [address]Performed By: #### 22501-9, 22557-3, 43713-2, 2777-1 ####[facility] LABCLIA [id number] [address] STATES OF [facility] HOSPITALCASE MANAGEMon 12-47-7660PRCN MANAGEMNormalDunlap Memorial HospitalCB panel Auto (Bld)on 02-19-2025 Erythrocyte distribution width (RBC) [Ratio]13.0 %Mgonlj78.5-15.0[facility] on above:Order Comment: Specimen Type: BLOOD SPECIMENOrdering Facility: [facility] Address:[address] [place], [place] [address]Performed By: #### 34550-2 ####[facility] LABCLIA [id number] [address] STREETHematocrit (Bld) [Volume fraction]27.1 %Low36.0-46.0[facility] on above:Order Comment: Specimen Type: BLOOD SPECIMENOrdering Facility: [facility] Address:[address] [place], [place] [address]Performed By: #### 47279-6 ####[facility] LABCLIA [id number] [id number] [address] [place] Hemoglobin (Bld) [Mass/Vol]8.8 g/dLLow11.5-15.5CMarietta Memorial Hospital on above:Order Comment: Specimen Type: BLOOD SPECIMENOrdering Facility: [facility] Address:[address] [place] [address] Performed By: #### 16038-6 ####[facility] LABIA [id number] [place] [address] [place] MCH (RBC) [Entitic mass]30.2 ukXrlppa59.0-34.0[facility] on above:Order Comment: Specimen Type: BLOOD SPECIMENOrdering Facility: [facility] Address:[address] [place] [address] Performed By: #### 57232-2 ####[facility] [id number] [address] [place] MCHC (RBC) [Mass/Vol]32.5 g/xHCjzsnw24.5-36.0[facility] on above:Order Comment: Specimen Type: BLOOD SPECIMENOrdering Facility: [facility] Address:[address] [place] [address] Performed By: #### 99824-2 ####[facility]PITALIA [id number] [place] [address] [place] MCV (RBC) [Entitic vol]93.1 aXSwlabe17.0-100.0[facility] on above:Order Comment: Specimen Type: BLOOD SPECIMENOrdering Facility: [facility] Address:[address] [place] [address] Performed By: #### 03670-1 ####[facility] LABIA [id number] [place] [address] [place] Nucleated RBC (Bld) [#/Vol]10*3/uLNormal<0.01[facility] on above:Order Comment: Specimen Type: BLOOD SPECIMENOrdering Facility: [facility] Address:[address] [place] [address] Performed By: #### 21288-6 ####[facility] LABIA [id number] [place] [address] [place] Platelet mean volume (Bld) [Entitic vol]11.4 fLNormal9.0-12.7CMarietta Memorial Hospital on above:Order Comment: Specimen Type: BLOOD SPECIMENOrdering Facility: [facility] Address:[address] [place], [place] [address]Performed By: #### 37555-1 ####[facility] LABIA [id number] [place] [address] [place] Platelets (Bld) [#/Vol]203 10*3/uOVzdpzn021-564VrtgvuryhTriHealth [facility] on above:Order Comment: Specimen Type: BLOOD SPECIMENOrdering Facility: [facility] Address:[address] [place] [address] Performed By: #### 29557-3 ####[facility] LABIA [id number] [place] [address] [place] RBC (Bld) [#/Vol]2.91 10*6/uLLow3.90-5.20[facility] on above:Order Comment: Specimen Type: BLOOD SPECIMENOrdering Facility: [facility] Address:[address] [place], [place] [address]Performed By: #### 64605-2 ####[facility] LABIA [id number] [place] [address] [place] AMERICAWBC (Bld) [#/Vol]8.49 10*3/uLNormal3.70-11.00[facility] on above:Order Comment: Specimen Type: BLOOD SPECIMENOrdering Facility: [facility] Address:[address] [place], [place] [address]Performed By: #### 59405-0 ####[facility] LABCLIA [id number] [address] [address] [place] OF AMERICACONSULTon 79-38-5466EJDKHBDDqumsg Dunlap Memorial HospitalCONSULT PROGon 97-51-7152GJWHPFC PROGNormalDunlap Memorial HospitalHepatic function 2000 panelon 61-87-2974Msmgejn [Mass/Vol]3.1 g/dLLow3.9-4.9CMarietta Memorial Hospital on above:Order Comment: Specimen Type: BLOOD SPECIMENOrdering Facility: [facility] Address:[address] [place], [place] [address]Performed By: #### 18355-3, 89235-1, , 2776- ####[facility] LABIA [id number] [place] [id number] [place] OF AMERICAALP [Catalytic activity/Vol]152 U/KCylc04-086SgbhhofgbTriHealth [facility] on above:Order Comment: Specimen Type: BLOOD SPECIMENOrdering Facility: [facility] Address:[address] [place], [place] [address]Performed By: #### 78219-0, 49935-6, , 2776- ####[facility] LABIA [id number] [place] [id number] [place] AMERICAALT [Catalytic activity/Vol]23 U/LNormal7-38[facility] on above:Order Comment: Specimen Type: BLOOD SPECIMENOrdering Facility: [facility] Address:[address] [place], [place] [address]Performed By: #### 24402-1, 23149-3, , 2776- ####[facility] LABIA [id number] [address] [address] [place] OF AMERICAAST [Catalytic activity/Vol]28 U/NRhrjww91-52LlskrcesbTriHealth [facility] on above:Order Comment: Specimen Type: BLOOD SPECIMENOrdering Facility: [facility] Address:[address] [place], [place] [address]Performed By: #### 19489-3, 70700-5, , 2776-07 ####[facility] LABIA [id number] [place] [address] [place] AMERICABilirubin [Mass/Vol]0.8 mg/dL Normal0.2-1.3CMarietta Memorial Hospital on above:Order Comment: Specimen Type: BLOOD SPECIMENOrdering Facility: [facility] Address:[address] [place], [place] [address]Performed By: #### 40849-0, 55908-4, , 2776-07 ####[facility] HOSPITALIA [id number] [place] [address] [place] AMERICABilirubin.conjugated [Mass/Vol] 0.3 mg/dLHigh<0.3CMarietta Memorial Hospital on above:Order Comment: Specimen Type: BLOOD SPECIMENOrdering Facility: [facility] Address:[address] [place], [place] [address]Performed By: #### 58009-6, 92609-8, , 2776-07 ####[facility] HOSPITALIA [id number] [place] [id number] [place] AMERICAProtein [Mass/Vol]5.9 g/dLLow6.3-8.0[facility] on above:Order Comment: Specimen Type: BLOOD SPECIMENOrdering Facility: [facility] Address:[address] [place], [place] [address]Performed By: #### 44762-6, 11099-0, , 2776-07 ####[facility] LABIA [id number] [place] [id number] [place] AMERICAMagnesium SerPl-mCncon 09-73-2297Womccwdcj [Mass/Vol]2.0 mg/dLNormal1.7-2.3CUniversity Hospitals Health System Comment on above:Order Comment: Specimen Type: BLOOD SPECIMENOrdering Facility: [facility] Address:[address] [place] [address] Performed By: #### 81935-5, 91405-5, 37095-9, 2776-1 ####[facility] LABCLIA [id number] [place] [id number] [facility] OF AMERICANUTRITIONon 37-20-3960LRXFIHQURZyoidgEctfysjbu Clinic [facility] Phosphate SerPl-mCncon 90-03-0910Deikamdlt [Mass/Vol]3.0 mg/dLNormal2.7-4.8 [facility]lap Memorial HospitalComment on above:Order Comment: Specimen Type: BLOOD SPECIMENOrdering Facility: [facility] Address:[address] [place], [place] [address]Performed By: #### 28759-7, 71288-7, , 2776- ####[facility] LABCLIA [id number] [place] [id number] [place] STATES OF [facility] GENERAL HOSPITALTHERAPY NTon 52-44-8327NFKKGUU NT NormalDunlap Memorial HospitalTHERAPY NTNormalCUniversity Hospitals Health SystemCBC panel Auto (Bld)on 46-15-6524Tabdvlqlhuw distribution width (RBC) [Ratio]13.3 % Kfvoqd16.5-15.0[facility] on above:Order Comment: Specimen Type: BLOOD SPECIMENOrdering Facility: [facility] Address:[address] [place], [place] [address]Performed By: #### 56156-6 ####[facility] LABCLIA [id number] [place] [id number] [place] OF AMERICAHematocrit (Bld) [Volume fraction]26.4 %Low36.0-46.0[facility] on above:Order Comment: Specimen Type: BLOOD SPECIMENOrdering Facility: [facility] Address:[address] [place], [place] [address]Performed By: #### 12994- 2 ####[facility] LABIA [id number] [address]ETHemoglobin (Bld) [Mass/Vol]8.9 g/dLLow11.5-15.5CMarietta Memorial Hospital on above:Order Comment: Specimen Type: BLOOD SPECIMENOrdering Facility: [facility] Address:[address] [place], [place] [address]Performed By: #### 11496-7 ####[facility] LABIA [id number] [address] (RBC) [Entitic mass]31.0 pg Blfpob12.0-34.0[facility] on above:Order Comment: Specimen Type: BLOOD SPECIMENOrdering Facility: [facility] Address:[address] [place], [place] [address]Performed By: #### 92618-2 ####[facility] [id number] [address]ETMCHC (RBC) [Mass/Vol]33.7 g/dL Phekqu59.5-36.0[facility] on above:Order Comment: Specimen Type: BLOOD SPECIMENOrdering Facility: [facility] Address:[address] [place], [place] [address]Performed By: #### 46466-4 ####[facility] LABBRATTLEB[facility] [id number] [address]V (RBC) [Entitic vol]92.0 fL Jltesc21.0-100.0[facility] on above:Order Comment: Specimen Type: BLOOD SPECIMENOrdering Facility: [facility] Address:[address] [place], [place] [address]Performed By: #### 92493-0 ####[facility] LABBRATTLEBORO MEMORIAL [facility] [id number] [address] RBC (Bld) [#/Vol] 10*3/uLNormal<0.01[facility] on above:Order Comment: Specimen Type: BLOOD SPECIMENOrdering Facility: [facility] Address:[address] [place], [place] [address]Performed By: #### 02731-7 ####[facility] LABCLIA [id number] [place] [address] [place] AMERICAPlatelet mean volume (Bld) [Entitic vol]10.8 fLNormal9.0-12.7CMarietta Memorial Hospital on above: Order Comment: Specimen Type: BLOOD SPECIMENOrdering Facility: [facility] Address:[address] [place], [place] [address]Performed By: #### 60761- 2 ####[facility] LABCLIA [id number] [place] [address] [place] AMERICAPlatelets (Bld) [#/Vol]176 10*3/pWWvsvlg623-086XlpmgjndmTriHealth [facility] on above:Order Comment: Specimen Type: BLOOD SPECIMENOrdering Facility: [facility] Address:[address] [place], [place] [address]Performed By: #### 02553-1 ####[facility] LABCLIA [id number] [place] [address] [place] AMERICARBC (Bld) [#/Vol]2.87 10*6/uLLow 3.90-5.20[facility] on above:Order Comment: Specimen Type: BLOOD SPECIMENOrdering Facility: [facility] Address:[address] [place], [place] [address]Performed By: #### 84339-9 ####[facility] LABCLIA [id number] [place] [address] [place] AMERICAWBC (Bld) [#/Vol]8.18 10*3/uLNormal3.70-11.00[facility] on above:Order Comment: Specimen Type: BLOOD SPECIMENOrdering Facility: [facility] Address:[address] [place], [place] [address]Performed By: #### 43746-6 ####[facility] LABCLIA [id number] [place] [address] [place] AMERICACRP SerPl-mCncon 78-03-2434HWP [Mass/Vol]14.6 mg/dLHigh<0.9ClevelSycamore Medical Center on above:Order Comment: Specimen Type: BLOOD SPECIMENOrdering Facility: [facility] Address:[address] [place], [place] [address]Performed By: #### 1988-5 ####[facility] LABCLIA [id number] [place] [address] [place] AMERICAMagnesium SerPl-mCncon 22-16-6051Zuhbncgqd [Mass/Vol]2.1 mg/dLNormal 1.7-2.3CMarietta Memorial Hospital on above:Order Comment: Specimen Type: BLOOD SPECIMENOrdering Facility: [facility] Address:[address] [place], [place] [address]Performed By: #### 86436-0, 50711-2 ####[facility] LABCLIA [id number] [place] [id number] [place] AMERICARenal function 2000 panelon 02-97-1233Ddijyki [Mass/Vol]2.9 g/dLLow3.9-4.9CMari[facility] Memorial Hospital on above:Order Comment: Specimen Type: BLOOD SPECIMENOrdering Facility: [facility] Address:[address] [place], [place] [address]Performed By: #### 04742- 9, 40485-6 ####[facility] LABCLIA [id number] [place]LA[place] [address] [place] AMERICAAnion gap [Moles/Vol]11 mmol/LNormal8-15[facility] on above:Order Comment: Specimen Type: BLOOD SPECIMENOrdering Facility: [facility] Address:[address] [place], [place] [address]Performed By: #### 26876-3, 88999-0 ####[facility] LABCLIA [id number] [place] [address] [place] AMERICACalcium [Mass/Vol]7.8 mg/dLLow 8.5-10.2CMarietta Memorial Hospital on above:Order Comment: Specimen Type: BLOOD SPECIMENOrdering Facility: [facility] Address:[address] [place], [place] [address]Performed By: #### 69832-6, 59236-8 ####[facility] LABCLIA [id number] [place] [address] [place] AMERICAChloride [Moles/Vol]103 mmol/HXsfsfl44-808 [facility] on above:Order Comment: Specimen Type: BLOOD SPECIMENOrdering Facility: [facility] Address:[address] [place], [place] [address]Performed By: #### 24286-3, 04382-5 ####[facility] LABCLIA [id number] [place] [address] [place] AMERICACO2 [Moles/Vol]20 mmol/AKfo98-50WgjzkjlinDunlap Memorial Hospital Comment on above:Order Comment: Specimen Type: BLOOD SPECIMENOrdering Facility: [facility] Address:[address] [place] [address] Performed By: #### 77448-4, 77416-1 ####[facility] LABCLIA [id number] [place] [id number] [place] Creatinine [Mass/Vol]0.41 mg/dLLow0.58-0.96[facility] on above:Order Comment: Specimen Type: BLOOD SPECIMENOrdering Facility: [facility] Address:[address] [place], [place] [address]Performed By: #### 79220-7, 26591-9 ####[facility] LABCLIA [id number] [place] [address] [place] AMERICAeGFRcr SerPlBld CKD- EPI [id number] mL/min/1.73m???Normal>=60[facility] on above: Order Comment: Specimen Type: BLOOD SPECIMENOrdering Facility: [facility] Address:[address] [place], [place] [address]Result Comment: Estimated Glomerular Filtration Rate (eGFR) is [...] not accurately reflect actual GFR.Performed By: #### 34079-0, 53166-4 ####[facility] LABCLIA [id number] [place] [address] [place] AMERICAGlucose [Mass/Vol]239 mg/dLHigh 74-99[facility] on above:Order Comment: Specimen Type: BLOOD SPECIMENOrdering Facility: [facility] Address:[address] [place] [address] Comment: The Citizen Of [place] Diabetes Association (ADA) provides guidance for cutoff [...] Standards of Medical Care in Diabetes 2016, Citizen Of [place] Diabetes Association. Diabetes Care. 2016.39(Suppl 1).Performed By: #### 38166- 9, 81333-0 ####[facility] LABCLIA [id number] EUCLIHaleigh DE LA VEGAWOOD[facility] MEDICAL CENTERK [place] [id number] [place] AMERICAPhosphate [Mass/Vol]3.4 mg/dLNormal2.7-4.8ClevelSycamore Medical Center on above:Order Comment: Specimen Type: BLOOD SPECIMENOrdering Facility: [facility] Address:[address] [place], [place] [address]Performed By: #### 98713-9, 17515-3 ####[facility] LABCLIA [id number] [place] [id number] [place] AMERICAPotassium [Moles/Vol]4.4 mmol/L Normal3.7-5.1ClevelSycamore Medical Center on above:Order Comment: Specimen Type: BLOOD SPECIMENOrdering Facility: [facility] Address:[address] [place], [place] [address]Performed By: #### 67528-0, 39618-7 ####[facility] LABCLIA [id number] [place] [address] [place] [facility] HOSPITALSodium [Moles/Vol]134 mmol/LVhy304-069MthnxmkdjTriHealth [facility] on above:Order Comment: Specimen Type: BLOOD SPECIMENOrdering Facility: [facility] Address:[address] [place], [place] [address]Performed By: #### 56471-5, 02730-4 ####[facility] LABCLIA [id number] [place] [address] [place] AMERICAUrea nitrogen [Mass/Vol]13 mg/dLNormal7-21[facility] on above:Order Comment: Specimen Type: BLOOD SPECIMENOrdering Facility: [facility] Address:[address] [place], [place] [address]Performed By: #### 64852-6, 28512-0 ####[facility] LABCLIA [id number] [place] [id number] [facility]AL HOSPITALCBC panel Auto (Bld)on 60-57-2719Fujoanxncje distribution width (RBC) [Ratio]13.5 %Hgsuzz71.5-15.0[facility] on above:Order Comment: Specimen Type: BLOOD SPECIMENOrdering Facility: [facility] Address:[address] [place], [place] [address]Performed By: #### 74621- 2 ####[facility] LABCLIA [id number] [address] OF AMERICAHematocrit (Bld) [Volume fraction]27.4 %Low36.0-46.0[facility] on above:Order Comment: Specimen Type: BLOOD SPECIMENOrdering Facility: [facility] Address:[address] [place], [place] [address]Performed By: #### 60877- 2 ####[facility] LABIA [id number] [address] OF AMERICAHemoglobin (Bld) [Mass/Vol]9.0 g/dLLow11.5-15.5CMarietta Memorial Hospital on above:Order Comment: Specimen Type: BLOOD SPECIMENOrdering Facility: [facility] Address:[address] [place], [place] [address]Performed By: #### 50321-2 ####[facility] LABCLIA [id number] [address] STREETMCH (RBC) [Entitic mass]29.9 pg Zdpyzh94.0-34.0[facility] on above:Order Comment: Specimen Type: BLOOD SPECIMENOrdering Facility: [facility] Address:[address] [place], [place] [address]Performed By: #### 35982-0 ####[facility] LABCLIA [id number] [address]ETMCHC (RBC) [Mass/Vol]32.8 g/dL Ewpwmd72.5-36.0[facility] on above:Order Comment: Specimen Type: BLOOD SPECIMENOrdering Facility: [facility] Address:[address] [place], [place] [address]Performed By: #### 03714-6 ####[facility] LABIA [id number] [address]ETMCV (RBC) [Entitic vol]91.0 fL Bcprpw68.0-100.0[facility] on above:Order Comment: Specimen Type: BLOOD SPECIMENOrdering Facility: [facility] Address:[address] [place], [place] [address]Performed By: #### 65169-5 ####[facility] LABIA [id number] [address]ETucleated RBC (Bld) [#/Vol] 10*3/uLNormal<0.01[facility] on above:Order Comment: Specimen Type: BLOOD SPECIMENOrdering Facility: [facility] Address:[address] [place], [place] [address]Performed By: #### 70000-5 ####[facility] LABIA [id number] [address] STATES OF AMERICAPlatelet mean volume (Bld) [Entitic vol]11.2 fLNormal9.0-12.7CMarietta Memorial Hospital on above: Order Comment: Specimen Type: BLOOD SPECIMENOrdering Facility: [facility] Address:[address] [place], [place] [address]Performed By: #### 51917- 2 ####[facility] LABBRATTLEBORO [facility] [id number] [place] [address] [place] AMERICAPlatelets (Bld) [#/Vol]164 10*3/rOXrpmoc492-002GpirdalbyTriHealth [facility] on above:Order Comment: Specimen Type: BLOOD SPECIMENOrdering Facility: [facility] Address:[address] [place], [place] [address]Performed By: #### 65710-6 ####[facility] LABIA [id number] [address] [address] [place] OF [facility] GENERAL HOSPITALRBC (Bld) [#/Vol]3.01 10*6/uLLow 3.90-5.20[facility] on above:Order Comment: Specimen Type: BLOOD SPECIMENOrdering Facility: [facility] Address:[address] [place], [place] [address]Performed By: #### 20111-7 ####[facility] LABIA [id number] [address] LAWRENCE PSYCHIATRIC CENTERWBC (Bld) [#/Vol]9.64 10*3/uLNormal3.70-11.00[facility] on above:Order Comment: Specimen Type: BLOOD SPECIMENOrdering Facility: [facility] Address:[address] [place], [place] [address]Performed By: #### 44269-7 ####[facility] LABIA [id number] [address] [address] [place] OF AMERICACONSULT PROGon 27-51-5203QGHPSJO PROGNormalDunlap Memorial HospitalCRP SerPl-mCncon 00-50-2160EXK [Mass/Vol]16.8 mg/dLHigh<0.9ClevelSycamore Medical Center on above:Order Comment: Specimen Type: BLOOD SPECIMENOrdering Facility: [facility] Address:[address] [place], [place] [address]Performed By: #### 1987- ####[facility] LABIA [id number] [place] [address] [place] CRP [Mass/Vol]17.7 mg/dLHigh<0.9[facility] on above:Order Comment: Specimen Type: BLOOD SPECIMENOrdering Facility: [facility] Address:[address] [place], [place] [address]Performed By: #### 1987- , 81810-2, 56185-6 ####[facility] LABCLIA [id number] [address] [address] [place] OF AMERICAMagnesium SerPl-mCncon 63-15-7392Dkngzhaqw [Mass/Vol]1.8 mg/dLNormal1.7-2.3CMarietta Memorial Hospital on above:Order Comment: Specimen Type: BLOOD SPECIMENOrdering Facility: [facility] Address:[address] [place], [place] [address]Performed By: #### 1987-11, , ####[facility] LABCLIA [id number] [place] [id number] [place] AMERICARenal function 2000 panelon 31-82-0815Flrpuxw [Mass/Vol]3.0 g/dLLow3.9-4.9ClevelSycamore Medical Center on above:Order Comment: Specimen Type: BLOOD SPECIMENOrdering Facility: [facility] Address:[address] [place], [place] [address]Performed By: #### , , ####[facility] LABIA [id number] [place] [id number] [place] OF AMERICAAnion gap [Moles/Vol]11 mmol/LNormal8-15[facility] on above:Order Comment: Specimen Type: BLOOD SPECIMENOrdering Facility: [facility] Address:[address] [place], [place] [id number] By: #### , , ####[facility] [id number] [place] [id number] [place] OF AMERICACalcium [Mass/Vol]8.1 mg/dLLow8.5-10.2ClevelSycamore Medical Center on above:Order Comment: Specimen Type: BLOOD SPECIMENOrdering Facility: [facility] Address:[address] [place], [place] [address]Performed By: #### , , ####[facility] [id number] [address] [address] [place] AMERICAChloride [Moles/Vol]102 mmol/DCjtazk49-756ZscamgfrcTriHealth Bethesda [facility] on above: Order Comment: Specimen Type: BLOOD SPECIMENOrdering Facility: [facility] Address:[address] [place], [place] [address]Performed By: #### , , ####[facility] [id number] [address] [address] [place] AMERICACO2 [Moles/Vol] 22 mmol/XPegumh31-56IvweclvqlTriHealth [facility] on above:Order Comment: Specimen Type: BLOOD SPECIMENOrdering Facility: [facility] Address:[address] [place], [place] [address]Performed By: #### 1987-11, , ####[facility] [id number] [address] [place] AMERICACreatinine [Mass/Vol]0.51 mg/dL Low0.58-0.96[facility] on above:Order Comment: Specimen Type: BLOOD SPECIMENOrdering Facility: [facility] Address:[address] [place], [place] [address]Performed By: #### 1987-11, , ####[facility] [id number] [address] [place] AMERICAeGFRcr SerPlBld CKD-EPI [id number] mL/min/1.73m???Normal>=60[facility] on above:Order Comment: Specimen Type: BLOOD SPECIMENOrdering Facility: [facility] Address:[address] [place], [place] [id number] Comment: Estimated Glomerular Filtration Rate (eGFR) is [...] reflect actual GFR.Performed By: #### 1987-11, , ####[facility] LABIA [id number] AVENUEDESK [id number] [place] [address] [place] OF [facility] HOSPITALGlucose [Mass/Vol]109 mg/dLHigh 74-99[facility] on above:Order Comment: Specimen Type: BLOOD SPECIMENOrdering Facility: [facility] Address:[address] [place], [place] [address]Result Comment: The [place] Diabetes Association (ADA) provides guidance for cutoff [...] Standards of Medical Care in Diabetes 2016, Citizen [place] Diabetes Association. Diabetes Care. 2016.39(Suppl 1).Performed By: #### 1987-11, , ####[facility] LABIA [id number] [address] [place] OF AMERICAPhosphate [Mass/Vol] 1.4 mg/dLLow2.7-4.8CMarietta Memorial Hospital on above:Order Comment: Specimen Type: BLOOD SPECIMENOrdering Facility: [facility] Address:[address] [place], [place] [address]Performed By: #### 1987-11, , ####[facility] LABIA [id number] [address] [place] OF AMERICAPotassium [Moles/Vol]3.6 mmol/L Low3.7-5.1CMarietta Memorial Hospital on above:Order Comment: Specimen Type: BLOOD SPECIMENOrdering Facility: [facility] Address:[address] [place], [place] [address]Performed By: #### 1987-11, , 48058-8 ####[facility] LABCLIA [id number] VILLE [id number] [facility]ITALSodium [Moles/Vol]135 mmol/LLow 136-144[facility] on above:Order Comment: Specimen Type: BLOOD SPECIMENOrdering Facility: [facility] Address:[address] [place], [place] [address]Performed By: #### 1987-11, , 58412-2 ####[facility] LABCLIA [id number] VILLE [id number] [facility]ONE HOSPITALUrea nitrogen [Mass/Vol]11 mg/dL Normal7-21[facility] on above:Order Comment: Specimen Type: BLOOD SPECIMENOrdering Facility: [facility] Address:[address] [place], [place] [address]Performed By: #### 1987-11, , 95933-4 ####[facility] LABIA [id number] VILLE [id number] [place] OF AMERICAAlbumin SerPl-mCncon 02-16-2025 Albumin [Mass/Vol]3.4 g/dLLow3.9-4.9CMarietta Memorial Hospital on above: Order Comment: Specimen Type: BLOOD SPECIMENOrdering Facility: [facility] Address:[address] [place], [place] [address]Performed By: #### , 1750-, , 20496-7 ####[facility] LABCLIA [id number] [place] [id number] [place] OF AMERICABasic metabolic 2000 panelon 94-45-3529Aysnn gap [Moles/Vol]10 mmol/LNormal8-15 [facility] on above:Order Comment: Specimen Type: BLOOD SPECIMENOrdering Facility: [facility] Address:[address] [place], [place] [address]Performed By: #### 1987-11, 1751-01, , ####[facility] LABCLIA [id number] [place] [id number] [place] AMERICACalcium [Mass/Vol]7.5 mg/dLLow 8.5-10.2CMarietta Memorial Hospital on above:Order Comment: Specimen Type: BLOOD SPECIMENOrdering Facility: [facility] Address:[address] [place], [place] [address]Result Comment: Result rechecked.Performed By: #### 1987-11, 1751-01, , ####[facility] LABCLIA [id number] [place] [id number] [place] Chloride [Moles/Vol]105 mmol/OSplvjq10-588FuuoyakqgTriHealth [facility] on above:Order Comment: Specimen Type: BLOOD SPECIMENOrdering Facility: [facility] Address:[address] [place], [place] [address]Performed By: #### 1987-11, 1751-01, , ####[facility] LABCLIA [id number] [place] [id number] [place] CO2 [Moles/Vol]24 mmol/KGbbfjy97-24HurjtzbjwTriHealth [facility] on above: Order Comment: Specimen Type: BLOOD SPECIMENOrdering Facility: [facility] Address:[address] [place], [place] [address]Performed By: #### , 1751-01, , ####[facility] LABCLIA [id number] [place] [id number] [place] Creatinine [Mass/Vol]0.52 mg/dLLow0.58-0.96[facility] Memorial HospitalComment on above:Order Comment: Specimen Type: BLOOD SPECIMENOrdering Facility: [facility] Address:[address] [place], [place] [address]Performed By: #### 1987-11, 1751-01, , 94458-8 ####[facility] LABCLIA [id number] [place] [id number] [facility] eGFRcr SerPlBld CKD-EPI [id number] mL/min/1.73m???Normal>=60[facility] on above:Order Comment: Specimen Type: BLOOD SPECIMENOrdering Facility: [facility] Address:[address] [place], [place] [address]Result Comment: Estimated Glomerular Filtration Rate (eGFR) is [...] GFR. Performed By: #### 1987-11, 1751-01, , ####[facility] LABCLIA [id number] [place] [id number] [place] [facility] HOSPITALGlucose [Mass/Vol]107 mg/wNVcuh17-41AitnujxjqDunlap Memorial Hospital Comment on above:Order Comment: Specimen Type: BLOOD SPECIMENOrdering Facility: [facility] Address:[address] [place] [address]Anyhfu Comment: The [place] Diabetes Association (ADA) provides guidance for cutoff [...] Standards of Medical Care in Diabetes 2016, [place] Diabetes Association. Diabetes Care. 2016.39(Suppl 1).Performed By: #### 1987-11, 1751-01, , ####[facility] LABCLIA [id number] [place] [id number] [place] AMERICAPotassium [Moles/Vol]3.3 mmol/L Low3.7-5.1CMarietta Memorial Hospital on above:Order Comment: Specimen Type: BLOOD SPECIMENOrdering Facility: [facility] Address:[address] [place], [place] [address]Performed By: #### 1987-11, 1751-01, , ####[facility] LABIA [id number] [address]ETSodium [Moles/Vol]139 mmol/WUblboy250-669YoszaoubgTriHealth [facility]hes[facility] on above:Order Comment: Specimen Type: BLOOD SPECIMENOrdering Facility: [facility] Address:[address] [place], [place] [address]Performed By: #### 1987-11, 1751-01, , ####[facility] LABCLIA [id number] [place] [id number] [place] AMERICAUrea nitrogen [Mass/Vol]11 mg/dLNormal7-21[facility] on above:Order Comment: Specimen Type: BLOOD SPECIMENOrdering Facility: [facility] Address:[address] [place], [place] [address]Performed By: #### , 1751-01, , ####[facility] LABCLIA [id number] [place] [id number] [place] OF AMERICACASE MGT INIT ASSESon 11-76-5892ZVDY MGT INIT ASSESNoalCUniversity Hospitals Health System CBC W Auto Differential panel (Bld)on 97-04-4122Crfkapnly (Bld) [#/Vol]10*3/uL Normal<0.11CMarietta Memorial Hospital on above:Order Comment: Specimen Type: BLOOD SPECIMENOrdering Facility: [facility] Address:[address] [place], [place] [address]Performed By: #### 37059-8 ####[facility] LABCLIA [id number] [place] [address] [place] AMERICABasophils/100 WBC (Bld)0.1 %NormalTriHealth Bethesda North Hospital on above:Order Comment: Specimen Type: BLOOD SPECIMENOrdering Facility: [facility] Address:[address] [place], [place] [address]Performed By: #### 58829-6 ####[facility] LABCLIA [id number] [place] [address] [place] Differential cell count method Nom (Bld)AutoNormalCUniversity Hospitals Health System Comment on above:Order Comment: Specimen Type: BLOOD SPECIMENOrdering Facility: [facility] Address:[address] [place] [address] Performed By: #### 22090-6 ####[facility] LABCLIA [id number] [place] [id number] [place] Eosinophils (Bld) [#/Vol]10*3/uLNormal<0.46[facility] on above:Order Comment: Specimen Type: BLOOD SPECIMENOrdering Facility: [facility] Address:[address] [place], [place] [address]Performed By: #### 69963-6 ####[facility] LABCLIA [id number] [place] [id number] [place] AMERICAEosinophils/100 WBC (Bld)0.2 %NormalTriHealth Bethesda North Hospital on above:Order Comment: Specimen Type: BLOOD SPECIMENOrdering Facility: [facility] Address:[address] [place], [place] [address]Performed By: #### 80575-6 ####[address] HOSPITALIA [id number] [place] [address] [place] AMERICAErythrocyte distribution width (RBC) [Ratio]13.6 %Xjrqbd02.5-15.0[facility] on above: Order Comment: Specimen Type: BLOOD SPECIMENOrdering Facility: [facility] Address:[address] [place], [place] [address]Performed By: #### 48286- 8 ####[address] HOSPITALIA [id number] [place] [address] [place] AMERICAHematocrit (Bld) [Volume fraction]30.2 %Low36.0-46.0[facility] on above:Order Comment: Specimen Type: BLOOD SPECIMENOrdering Facility: [facility] Address:[address] [place], [place] [address]Performed By: #### 47233- 8 ####[address] HOSPITALIA [id number] [place] [address] [place] AMERICAHemoglobin (Bld) [Mass/Vol]10.0 g/dLLow11.5-15.5CMarietta Memorial Hospital on above:Order Comment: Specimen Type: BLOOD SPECIMENOrdering Facility: [facility] Address:[address] [place], [place] [address]Performed By: #### 77338-8 ####[facility] LABIA [id number] [place] [address] [place] AMERICAImmature granulocytes (Bld) [#/Vol]0.04 10*3/uLNormal<0.10[facility] on above:Order Comment: Specimen Type: BLOOD SPECIMENOrdering Facility: [facility] Address:[address] [place], [place] [address]Performed By: #### 84868- 8 ####[facility] LABCLIA [id number] [place] [address] [place] AMERICAImmature granulocytes/100 WBC (Bld)0.5 %NormalTriHealth Bethesda North Hospital on above:Order Comment: Specimen Type: BLOOD SPECIMENOrdering Facility: [facility] Address:[address] [place], [place] [address]Performed By: #### 85109-9 ####[facility] LABIA [id number] [place] [address] [place] AMERICALymphocytes (Bld) [#/Vol]0.83 10*3/uLLow1.00-4.00[facility] on above:Order Comment: Specimen Type: BLOOD SPECIMENOrdering Facility: [facility] Address:[address] [place], [place] [address]Performed By: #### 28076-1 ####[facility] [id number] [address] LAWRENCE PSYCHIATRIC CENTERLymphocytes/100 WBC (Bld)9.9 % NormalTriHealth Bethesda North Hospital on above:Order Comment: Specimen Type: BLOOD SPECIMENOrdering Facility: [facility] Address:[address] [place], [place] [address]Performed By: #### 38131-5 ####[facility] LABIA [id number] [place] [address] [place] AMERICAMCH (RBC) [Entitic mass]29.8 rvNwoofc35.0-34.0[facility] on above:Order Comment: Specimen Type: BLOOD SPECIMENOrdering Facility: [facility] Address:[address] [place], [place] [address]Performed By: #### 74674-4 ####[facility] LABIA [id number] [place] [address] [place] MCHC (RBC) [Mass/Vol]33.1 g/qIVmfrif51.5-36.0[facility] on above:Order Comment: Specimen Type: BLOOD SPECIMENOrdering Facility: [facility] Address:[address] [place] [address] Performed By: #### 90707-5 ####[facility] LABIA [id number] [place] [address] [place] MCV (RBC) [Entitic vol]89.9 yGZusfbt28.0-100.0[facility] on above:Order Comment: Specimen Type: BLOOD SPECIMENOrdering Facility: [facility] Address:[address] [place] [address] Performed By: #### 10293-3 ####[facility] LABIA [id number] [place] [address] [place] Monocytes (Bld) [#/Vol]0.74 10*3/uLNormal<0.87[facility] on above:Order Comment: Specimen Type: BLOOD SPECIMENOrdering Facility: [facility] Address:[address] [place] [address] Performed By: #### 22167-2 ####[facility] LABIA [id number] [place] [address] [place] Monocytes/100 WBC (Bld)8.8 %NormalTriHealth Bethesda North Hospital on above: Order Comment: Specimen Type: BLOOD SPECIMENOrdering Facility: [facility] Address:[address] [place], [place] [address]Performed By: #### 61037- 8 ####[facility] LABIA [id number] [place] [address] [place] AMERICANeutrophils (Bld) [#/Vol]6.77 10*3/uLNormal1.45-7.50[facility] on above:Order Comment: Specimen Type: BLOOD SPECIMENOrdering Facility: [facility] Address:[address] [place], [place] [address]Performed By: #### 59230-6 ####[facility] LABIA [id number] [place] [address] [place] AMERICANeutrophils/100 WBC (Bld)80.5 % NormalDunlap Memorial HospitalComment on above:Order Comment: Specimen Type: BLOOD SPECIMENOrdering Facility: [facility] Address:[address] [place], [place] [address]Performed By: #### 42808-0 ####[facility] LABIA [id number] [place] [address] [place] AMERICANucleated RBC (Bld) [#/Vol]10*3/uLNormal<0.01[facility] on above:Order Comment: Specimen Type: BLOOD SPECIMENOrdering Facility: [facility] Address:[address] [place], [place] [address]Performed By: #### 73699-0 ####[facility] HOSPITALIA [id number] [place] [address] [place] Nucleated RBC/100 WBC (Bld) [Ratio]0.0 /100 WBCNormalCUniversity Hospitals Health System Comment on above:Order Comment: Specimen Type: BLOOD SPECIMENOrdering Facility: [facility] Address:[address] [place] [address] Performed By: #### 87375-4 ####[facility] LABIA [id number] [place] [id number] [place] Platelet mean volume (Bld) [Entitic vol]11.0 fLNormal9.0-12.7ClevelRutherford Regional Health SystemComtrinity health livingston hospital on above:Order Comment: Specimen Type: BLOOD SPECIMENOrdering Facility: [facility] Address:[address] [place], [place] [address]Performed By: #### 79654-3 ####[facility] LABIA [id number] [place] [address] [place] Platelets (Bld) [#/Vol]179 10*3/ePTrahbq253-902JjogqalryTriHealth [facility] on above:Order Comment: Specimen Type: BLOOD SPECIMENOrdering Facility: [facility] Address:[address] [place] [address] Performed By: #### 28307-6 ####[facility] LABCLIA [id number] [place] [address] [place] RBC (Bld) [#/Vol]3.36 10*6/uLLow3.90-5.20[facility] on above:Order Comment: Specimen Type: BLOOD SPECIMENOrdering Facility: [facility] Address:[address] [place], [place] [address]Performed By: #### 14993-1 ####[facility] LABCLIA [id number] [place] [address] [place] AMERICAWBC (Bld) [#/Vol]8.41 10*3/uLNormal3.70-11.00[facility] on above:Order Comment: Specimen Type: BLOOD SPECIMENOrdering Facility: [facility] Address:[address] [place], [place] [address]Performed By: #### 06912-4 ####[facility] LABCLIA [id number] [place] [address] [place] AMERICACONSULTon 12-68-2748SOLOEULGqjzjo Dunlap Memorial HospitalCR SerPl-mCncon 51-97-7624DHV [Mass/Vol]10.7 mg/dL High<0.9CMarietta Memorial Hospital on above:Order Comment: Specimen Type: BLOOD SPECIMENOrdering Facility: [facility] Address:[address] [place], [place] [address]Performed By: #### 1988-5, 1751-7, 37438-3, 05360-9 ####[facility] LABCLIA [id number] [place] [id number] [place] AMERICAMagnesium SerPl-mCncon 25-35-1679Imvsdkabn [Mass/Vol]1.7 mg/dLNormal1.7-2.3CUniversity Hospitals Health System Comment on above:Order Comment: Specimen Type: BLOOD SPECIMENOrdering Facility: [facility] Address:[address] [place] [address] Performed By: #### 1988-5, 1751-7, 94720-8, 98239-4 ####[facility] LABCLIA [id number] [place] [address] [place] AMERICANUTRITIONon 88-97-6721TWSBCAKKNBzkjwkYpbaybfwm [facility] Phosphate SerPl-mCncon 42-28-1340Qiyniugzy [Mass/Vol]2.7 mg/dLNormal2.7-4.8 Dunlap Memorial HospitalComment on above:Order Comment: Specimen Type: BLOOD SPECIMENOrdering Facility: [facility] Address:[address] [place], [place] [address]Performed By: #### 2777-1 ####[facility] LABCLIA [id number] [place] [address] [place] AMERICAXR CHEST 1V FRONTAL PORTon 61-58-9233GH CHEST 1V FRONTAL PORTNormal [facility] POSTPROC EVALon 50-55-0945FSRP POSTPROC EVAL NormalDunlap Memorial HospitalANES PRE-OPon 49-23-8876BEEO PRE-OPNormal Dunlap Memorial HospitalBRIEF OP NOTon 24-32-5861LCJBR OP NOTNormalCUniversity Hospitals Health SystemCNPNon 27-98-6608SZOAAshztyQpkkjhrku Clinic ClevelandHISTORY PHYSICALon 02-20-2507QVYPMWL PHYSICALNormalCUniversity Hospitals Health SystemNURSING PROGon 42-31-4278UCYAJLL PROGNormalDunlap Memorial HospitalOPERATIVE NOon 28-95-4047CUKHZTWPZ NONormalDunlap Memorial HospitalPathology biopsy report Eliu (Tiss)on 74-36-9353NG DISCLAIMERNormalCUniversity Hospitals Health SystemComment on above:Order Comment: Specimen Type: TISSUE SPECIMENOrdering Facility: [facility] Address: [address] [place] [address]Tdagyc Comment: Laboratory Developed Test (LDT) Disclaimer:Performance characteristics of immunohistochemical, immunofluorescent, and chromogenic in-situ hybridization tests have been determined by the performing laboratory within [facility]'s [facility] Pathology and Laboratory Medicine Department ([facility], [facility], [facility], [facility], [facility], [facility], or [facility]) in a manner consistent with CLIA requirements. One or more of these tests may not have been cleared or approved by the FDA. RT[facility] is regulated under CLIA as qualified to perform high-complexity testing. These tests are used for clinical purposes. These should not be regarded as investigational or for research. Positive and negative controls stain appropriately.Performed By: #### 50001-1 ####[facility] LABBRATTLEBORO [facility] [id number] [address] STATES OF [facility] GENERAL HOSPITALCASE REPORTNormal [facility] on above:Order Comment: Specimen Type: TISSUE SPECIMENOrdering Facility: [facility] Address: [address] [place], [place] [address]Result Comment: Surgical Pathology Report Case: [id number] Provider: Elsy Rousseau DO Collected: 02/15/2025 12:06 PMOrdering Location: Admitting Received: 02/15/2025 02:18 PMPathologist: Madhuri Acosta MDSpecimens: A) - Small Bowel, Ileostomy, bearing ileostomy B) - Colon, ResectionPerformed By: #### 15522-3 ####[facility] LABIA [id number] [place] [id number] [facility] CLINICAL HISTORYNormalCMarietta Memorial Hospital on above:Order Comment: Specimen Type: TISSUE SPECIMENOrdering Facility: [facility] Address: [address] [place] [address]Tpoqhi Comment: Pre-op diagnosis:Crohn's disease of small and large intestines with complication (HCC) [K50.819]Performed By: #### 77239-8 ####[facility] LABCLIA [id number] [place] [id number] [facility] FINAL DIAGNOSISCleveland Clinic [facility]cy [facility] on above:Order Comment: Specimen Type: TISSUE SPECIMENOrdering Facility: [facility] Address: [address] [place], [place] [address]Result Comment: A. Small Bowel, Ileostomy:- Segment of [...] granulomas at 1708 EDT Performed By: #### 41766-6 ####[facility] LABCLIA [id number] [place] [id number] [facility] FINAL PERFORMING LABCleveland Clinic Mercy Hospital on above:Order Comment: Specimen Type: TISSUE SPECIMENOrdering Facility: [facility] Address: [address] [place], [place] [address]Result Comment: Diagnostic interpretation performed at: [facility], [address] [place] [address], [address] [address] CLIA# [id number] Director: Krunal Morganformed By: #### 15778-7 ####[facility] LABCLIA [id number] [address] [address] [place] STATES OF AMERICAGROSS DESCRIPTIONCleveland Clinic [facility] on above:Order Comment: Specimen Type: TISSUE SPECIMENOrdering Facility: [facility] Address: [address] [place], [place] [address]Result Comment: A. Small Bowel, IleostomyFresh designated ileostomy is an ostomy specimen that measures 3.6 cm in length and 3.5 cm in diameter. Both ends are open. Surrounding one end is a gutierrez-hyde rim of skin. Mucosa slightly prolapsed at the ostomy site. The bowel is opened to reveal pink-gutierrez mucosa, showing normal mucosal folds. [employer] sections are submitted in 1 cassette.WE February 15, 2025 3:25 PMGross examination performed at [facility], [facility] [place] [id number]. Colon, ResectionReceived fresh designated colon resection is [...] There are no masses or lesions identified. [employer] sections are submitted as follows:B1. Margin 1 perpendicular inked orange and margin 2 perpendicular inked blueB2. Staple lineB3. Bowel at area of outpouchingB4-B5. Bowel full-thickness on each side of the staple lineB6. Three intact lymph nodesWE February 15, 2025 3:23 PMGross examination performed at [facility], [facility] [place] [address]\Performed By: #### 58449-9 ####[facility] LABCLIA [id number] [place] [address] [place] CBC panel Auto (Bld)on 00-15-1361Nunottfntit distribution width (RBC) [Ratio] 13.2 %11.5 - 15.0 %[facility] HospitalHematocrit (Bld) [Volume fraction]36.1 %36.0 - 46.0 %[facility] HospitalHemoglobin (Bld) [Mass/Vol]11.9 g/dL11.5 - 15.5 g/dL [facility] HospitalInterpretation and review of laboratory resultsNormalCSumma Health Barberton CampusH (RBC) [Entitic mass]29.5 pg26.0 - 34.0 pgClevelRegions HospitalHC (RBC) [Mass/Vol]33.0 g/dL30.5 - 36.0 g/dLOhioHealth Riverside Methodist HospitalV (RBC) [Entitic vol]89.4 fL80.0 - 100.0 fLCleveland ClinicNucleated RBC (Bld) [#/Vol]NINFCCleveland Clinic Children's [facility] for [facility] Platelet mean volume (Bld) [Entitic vol]11.4 fL9.0 - 12.7 [facility] Platelets (Bld) [#/Vol]207 10*3/[facility] City HospitalRBC (Bld) [#/Vol]4.04 10*6/uL 3.90 - 5.20 m/[facility] City HospitalWBC (Bld) [#/Vol]5.67 10*3/[facility] John Medical CenterErythrocyte distribution width (RBC) [Ratio]13.2 %Normal 11.5-15.0[facility] on above:Order Comment: Specimen Type: BLOOD SPECIMENOrdering Facility: [facility] Address:[address] [place], [place] [address]Performed By: #### 48618-2 ####[facility] [id number] [place] [address] STATES OF [facility] GENERAL HOSPITALHematocrit (Bld) [Volume fraction]36.1 %Uhvwbt65.0-46.0 [facility] on above:Order Comment: Specimen Type: BLOOD SPECIMENOrdering Facility: [facility] Address:[address] [place], [place] [address]Performed By: #### 17481-8 ####[facility] [id number] [place] [address] [place] OF AMERICAHemoglobin (Bld) [Mass/Vol]11.9 g/gIWmwrzp26.5-15.5[facility] on above:Order Comment: Specimen Type: BLOOD SPECIMENOrdering Facility: [facility] Address:[address] [place], [place] [address]Performed By: #### [id number] ####[facility] [id number] [place] [address] [place] AMERICAMCH (RBC) [Entitic mass]29.5 baSaxxka07.0-34.0[facility] Comment on above:Order Comment: Specimen Type: BLOOD SPECIMENOrdering Facility: [facility] Address:[address] [place] [address] Performed By: #### 58379-5 ####[facility] [id number] [address] GOOD[address] STREETMCHC (RBC) [Mass/Vol]33.0 g/zDJenhzm57.5-36.0[facility] on above: Order Comment: Specimen Type: BLOOD SPECIMENOrdering Facility: [facility] Address:[address] [place], [place] [address]Performed By: #### 19201- 2 ####[facility] [id number] [address]ETMCV (RBC) [Entitic vol]89.4 fLNormal 80.0-100.0[facility] Hospitalment on above:Order Comment: Specimen Type: BLOOD SPECIMENOrdering Facility: [facility] Address:[address] [place], [place] [address]Performed By: #### 48527-3 ####[facility] [id number] [place], [place] [address]ucleated RBC (Bld) [#/Vol]10*3/uLNormal<0.01[facility] on above:Order Comment: Specimen Type: BLOOD SPECIMENOrdering Facility: [facility] Address:[address] [place], [place] [address]Performed By: #### 61266-6 ####[facility] [id number] [place], [place] [address]Platelet mean volume (Bld) [Entitic vol]11.4 fLNormal9.0-12.7CMarietta Memorial Hospital on above:Order Comment: Specimen Type: BLOOD SPECIMENOrdering Facility: [facility] Address:[address] [place], [place] [address]Performed By: #### 88605-6 ####[facility] [id number] [address] STREETPlatelets (Bld) [#/Vol]207 10*3/oJJrbezh401-452BmtxfdgulDunlap Memorial Hospital Comment on above:Order Comment: Specimen Type: BLOOD SPECIMENOrdering Facility: [facility] Address:[address] [place] [address] Performed By: #### 41435-5 ####[facility] [id number] [address] ([facility]) [#/Vol]4.04 10*6/uLNormal3.90-5.20[facility] HospitalComment on above: Order Comment: Specimen Type: BLOOD SPECIMENOrdering Facility: [facility] Address:[address] [place], [place] [address]Performed By: #### 62584- 2 ####[facility] [id number] [address] ([facility]) [#/Vol]5.67 10*3/uLNormal 3.70-11.00[facility] HospitalComment on above:Order Comment: Specimen Type: BLOOD SPECIMENOrdering Facility: [facility] Address:[address] [place], [place] [address]Performed By: #### 47125-2 ####[facility] [id number] [place] [address] [place] OF AMERICACNCNPATEDon 98-46-2862ZAVTQNEJWRyhmzhUeenzzout [facility] Comprehensive metabolic 2000 panelon 10-22-7728Xokhiqm [Mass/Vol]4.4 g/dL3.9 - 4.9 g/dLLarimer ClinicALP [Catalytic activity/Vol]95 U/L34 - 123 U/LClevelcritical access hospital ClinicALT [Catalytic activity/Vol]38 U/L7 - 38 U/LCleveland ClinicAnion gap [Moles/Vol]10 mmol/L8 - 15 mmol/LCleveland ClinicAST [Catalytic activity/Vol]32 U/L13 - 35 U/LCleveland ClinicBilirubin [Mass/Vol]0.4 mg/dL0.2 - 1.3 mg/dL Lar[facility] ClinicCalcium [Mass/Vol]9.4 mg/dL8.5 - 10.2 mg/dLUc [facility] Chloride [Moles/Vol]103 mmol/L98 - 107 mmol/LCleveland ClinicCO2 [Moles/Vol]26 mmol/L22 - 30 mmol/LCleveland ClinicCreatinine [Mass/Vol]0.58 mg/dL0.58 - 0.96 mg/dLUc West Chester HospitalGFR/1.73 sq M.predicted among non-blacks MDRD (S/P/Bld) [Vol [...] reflect actual GFR.Glucose [Mass/Vol]96 mg/dL74 - 99 mg/dLUc West Chester HospitalComment on above:The [place] Diabetes Association (ADA) provides guidance for cutoff [...] Standards of Medical Care in Diabetes 2016, [place] Diabetes Association. Diabetes Care. 2016.39(Suppl 1). Interpretation and review of laboratory resultsAbnormalCleveland ClinicPotassium [Moles/Vol]4.5 mmol/L3.7 - 5.1 mmol/LCmercy health west hospital ClinicProtein [Mass/Vol]7.6 g/dL 6.3 - 8.0 g/dLFairfield Medical Centerodium [Moles/Vol]139 mmol/L136 - 144 mmol/L [facility] HospitalUrea nitrogen [Mass/Vol]24 mg/dLHigh7 - 21 mg/dLUc [facility] Hospital Albumin [Mass/Vol]4.4 g/dLNormal3.9-4.9CUniversity Hospitals Health SystemComment on above:Order Comment: Specimen Type: BLOOD SPECIMENOrdering Facility: [facility] Address:[address] [place], [place] [address]Performed By: #### 03024-8, 87761-7, 2776-07 ####[facility] [id number] [place] [address] [place] AMERICAALP [Catalytic activity/Vol]95 U/PHchjgj50-609PjwymsnqnTriHealth [facility] on above:Order Comment: Specimen Type: BLOOD SPECIMENOrdering Facility: [facility] Address:[address] [place], [place] [address]Performed By: #### 30229- 8, 22745-4, 2776-07 ####[facility] [id number] [place] [address] [place] AMERICAALT [Catalytic activity/Vol]38 U/LNormal7-38[facility] on above:Order Comment: Specimen Type: BLOOD SPECIMENOrdering Facility: [facility] Address:[address] [place], [place] [address]Performed By: #### 38623- 8, 65637-2, 2776-07 ####[facility] [id number] [place] [address] [place] AMERICAAnion gap [Moles/Vol] 10 mmol/LNormal8-15[facility] on above:Order Comment: Specimen Type: BLOOD SPECIMENOrdering Facility: [facility] Address:[address] [place], [place] [address]Performed By: #### 86637-7, 88901-0, 2776- ####[facility] [id number] [place] [address] [place] AMERICAAST [Catalytic activity/Vol]32 U/ZIobcmn29-16NqxigdowtTriHealth Bethesda North Hospital on above:Order Comment: Specimen Type: BLOOD SPECIMENOrdering Facility: [facility] Address:[address] [place], [place] [address]Performed By: #### 90459-8, 26803-7, 2776-07 ####[facility] [id number] [place] [address] [place] AMERICABilirubin [Mass/Vol]0.4 mg/dL Normal0.2-1.3CMarietta Memorial Hospital on above:Order Comment: Specimen Type: BLOOD SPECIMENOrdering Facility: [facility] Address:[address] [place], [place] [address]Performed By: #### 02705-7, 73800-3, 2776-07 ####[facility] [id number] [place] [address] [place] AMERICACalcium [Mass/Vol]9.4 mg/dLNormal 8.5-10.2CMarietta Memorial Hospital on above:Order Comment: Specimen Type: BLOOD SPECIMENOrdering Facility: [facility] Address:[address] [place], [place] [address]Performed By: #### 89802-3, 02844-4, 2776-07 ####[facility] [id number] [place] [address] [place] AMERICAChloride [Moles/Vol]103 mmol/L Yfgdao08-956MvtxzsnosTriHealth Bethesda North Hospital on above:Order Comment: Specimen Type: BLOOD SPECIMENOrdering Facility: [facility] Address:[address] [place], [place] [address]Performed By: #### 06195-1, , 2776-07 ####[facility] [id number] [place] [address] [place] AMERICACO2 [Moles/Vol]26 mmol/LNormal 22-30[facility] on above:Order Comment: Specimen Type: BLOOD SPECIMENOrdering Facility: [facility] Address:[address] [place], [place] [address]Performed By: #### 13752-9, , 2776-07 ####[facility] [id number] [place] [address] [place] AMERICACreatinine [Mass/Vol]0.58 mg/dLNormal0.58-0.96[facility] on above:Order Comment: Specimen Type: BLOOD SPECIMENOrdering Facility: [facility] Address:[address] [place], [place] [address]Performed By: #### 98422-7, , 2776-07 ####[facility] [id number] [place] [address] [place] AMERICAeGFRcr SerPlBld CKD-EPI 2711981 mL/min/1.73m???Normal>=60 [facility] on above:Order Comment: Specimen Type: BLOOD SPECIMENOrdering Facility: [facility] Address:[address] [place], [place] [address]Result Comment: Estimated Glomerular Filtration Rate (eGFR) is calculated using the 2020 CKD-EPI creatinine equation. This equation utilizes serum creatinine, sex, and age as parameters. The creatinine assay has traceable calibration to isotope dilution-mass spectrometry. Refer to KDIGO guidelines for clinical interpretation. In patients with unstable renal function, e.g. those with acute kidney injury, the eGFR may not accurately reflect actual GFR.Performed By: #### 39818-2, 19847-3, 2776-07 ####[facility] [id number] [place] [id number] [place] AMERICAGlucose [Mass/Vol]96 mg/tSZnxkca20-40DprzagkotTriHealth Bethesda North Hospital on above:Order Comment: Specimen Type: BLOOD SPECIMENOrdering Facility: [facility] Address:[address] [place], [place] [address]Result Comment: The [place] Diabetes Association (ADA) provides guidance for cutoff [...] Standards of Medical Care in Diabetes 2016, [place] Diabetes Association. Diabetes Care. 2016.39(Suppl 1).Performed By: #### 26850- 8, 05210-9, 2776- ####[facility] [id number] [place] [address] [place] AMERICAPotassium [Moles/Vol] 4.5 mmol/LNormal3.7-5.1CMarietta Memorial Hospital on above:Order Comment: Specimen Type: BLOOD SPECIMENOrdering Facility: [facility] Address:[address] [place], [place] [address]Performed By: #### 10468-7, 80805-4, 2776-07 ####[facility] [id number] [place] [address] [place] AMERICAProtein [Mass/Vol]7.6 g/dLNormal 6.3-8.0[facility] on above:Order Comment: Specimen Type: BLOOD SPECIMENOrdering Facility: [facility] Address:[address] [place], [place] [address]Performed By: #### 16756-8, 85650-2, 7- ####[facility] [id number] [place] [address] [place] AMERICASodium [Moles/Vol]139 mmol/DHfqkky415-734AiffxumuiTriHealth Bethesda North Hospital on above:Order Comment: Specimen Type: BLOOD SPECIMENOrdering Facility: [facility] Address:[address] [place], [place] [address]Performed By: #### 12115-1, 39679-3, 2777-1 ####[facility] [id number] [place] [address] [place] AMERICAUrea nitrogen [Mass/Vol]24 mg/dLHigh7-21[facility] on above:Order Comment: Specimen Type: BLOOD SPECIMENOrdering Facility: [facility] Address:[address] [place], [place] [address]Performed By: #### 48407-6, 38329-6, 2777-1 ####[facility] [id number] [place] [address] [place] OF AMERICAHISTORY PHYSICALon 85-49-4468NVYLQOG PHYSICALNormalCUniversity Hospitals Health SystemMAGNESIUMon 65-87-5465Fmknswrgu [Mass/Vol]2.2 mg/dL1.7 - 2.3 mg/dL [facility] HospitalMagnesium SerPl-mCncon 31-36-1395Mzklpqfcz [Mass/Vol]2.2 mg/dL Normal1.7-2.3CMarietta Memorial Hospital on above:Order Comment: Specimen Type: BLOOD SPECIMENOrdering Facility: [facility] Address:[address] [place], [place] [address]Performed By: #### 52425-3, 48270-9, 2777-1 ####[facility] [id number] [place] [address] [place] AMERICANo Panel Informationon 02-14-2025 Interpretation and review of laboratory resultsNormalCKettering Health Greene MemorialPHOSPHORUS INORGANICon 86-58-3117Iczdltnac [Mass/Vol]4.3 mg/dL2.7 - 4.8 mg/dLUc West Chester HospitalPhosphate SerPl-mCncon 63-37-2901Xbiqauyvp [Mass/Vol]4.3 mg/dLNormal2.7-4.8CMarietta Memorial Hospital on above:Order Comment: Specimen Type: BLOOD SPECIMENOrdering Facility: [facility] Address:[address] [place], [place] [address]Performed By: #### 60375-0, 67702-7, 2777-1 ####[facility] [id number] [place] [address] [place] AMERICARF Colon Views W barium contrast PRon 43-30-6295HGXUEYQNAR: NO LEAK. Reducing Machine Operator: EPIFANIO Transcribe Date/Time: Feb 14 2025 11:46A Dictated by : FRANCINE STAFFORD MD This examination was interpreted and the report reviewed and electronically signed by: ARTHUR MARMOLEJO MD on Feb 14 2025 11:55AM [facility] DIVISION OF RADIOLOGY* * *Final Report* * [...] 2:06 (min:sec). Air kerma: 78.6 mGy. RESULT: Table Runner: No dilated bowel in the included field [...] remainder of the procedure. DIVISION OF RADIOLOGYProvider, [facility] [place] - 02/14/2025 * * *Final Report* * [...] 2:06 (min:sec). Air kerma: 78.6 mGy. RESULT: Table Runner: No dilated bowel in the included field [...] of the procedure. IMPRESSION IMPRESSION: NO LEAK. Reducing Machine Operator: [facility] Transcribe Date/Time: Feb 14 2025 11:46A Dictated by : FRANCINE STAFFORD MD This examination was interpreted and the report reviewed and electronically signed by: ARTHUR MARMOLEJO MD on Feb 14 2025 11:55AM EST [facility] HospitalRadiology Study observation (narrative)[facility] HospitalRF Colon Views W barium contrast PROrdered By: [facility] Provider on 19-43-5306Lbxiooxso Clinic XR COLON SINGLE CONTRASTon 49-40-0635IU COLON SINGLE CONTRASTNormalCVan Wert County HospitalvelandCNPNon 56-37-7257UEATRlppuzNnepymskx Clinic ClevelandCBC panel Auto (Bld)on 60-38-7335Efgiozojwyo distribution width (RBC) [Ratio]13.6 %Normal 11.5-15.0[facility] Memorial HospitalComment on above:Order Comment: Specimen Type: BLOOD SPECIMENOrdering Facility: [facility] Address:[address] [place], [place] [address]Performed By: #### 85010-0 ####[facility] LABCLIA [id number] [place] [address] Hematocrit (Bld) [Volume fraction]35.8 %Low36.0-46.0[facility] Comment on above:Order Comment: Specimen Type: BLOOD SPECIMENOrdering Facility: [facility] Address:[address] [place] [address] Performed By: #### 25225-6 ####[facility] LABCLIA [id number] [place], [place] [address]Goewoedwfg (Bld) [Mass/Vol]12.1 g/wWFfyqvp50.5-15.5CUniversity Hospitals Health SystemComment on above:Order Comment: Specimen Type: BLOOD SPECIMENOrdering Facility: [facility] Address:[address] [place], [place] [address]Performed By: #### 21103-0 ####[facility] LABCLIA [id number] [place], [place] [address]IFJ (RBC) [Entitic mass]30.3 juWocvha97.0-34.0Dun[facility] Memorial HospitalComment on above:Order Comment: Specimen Type: BLOOD SPECIMENOrdering Facility: [facility] Address:[address] [place], [place] [address]Performed By: #### 85901-2 ####[facility] LABCLIA [id number] [place], [place] [address]SKHG (RBC) [Mass/Vol]33.8 g/cVMagtut74.5-36.0Dunlap Memorial HospitalComtrinity health [facility] hospital on above: Order Comment: Specimen Type: BLOOD SPECIMENOrdering Facility: [facility] Address:[address] [place], [place] [address]Performed By: #### 39946- 2 ####[facility] LABCLIA [id number] [place], [place] [address]LRU (RBC) [Entitic vol]89.7 jISwstyl87.0-100.0[facility] on above:Order Comment: Specimen Type: BLOOD SPECIMENOrdering Facility: [facility] Address:[address] [place], [place] [address]Performed By: #### 39402-7 ####[facility] LABCLIA [id number] [place], [place] [address]Mwmqjavjq RBC (Bld) [#/Vol]10*3/uLNormal<0.01[facility] on above:Order Comment: Specimen Type: BLOOD SPECIMENOrdering Facility: [facility] Address:[address] [place], [place] [address]Performed By: #### 59102- 2 ####[facility] LABCLIA [id number] [place], [place] [address]Xbesyqkp mean volume (Bld) [Entitic vol]11.7 fLNormal 9.0-12.7CMarietta Memorial Hospital on above:Order Comment: Specimen Type: BLOOD SPECIMENOrdering Facility: [facility] Address:[address] [place], [place] [address]Performed By: #### 82138-2 ####[facility] LABCLIA [id number] [place], [place] [address]Unjvdhcec (Bld) [#/Vol]144 10*3/qGKac416-611SeprlkoiaTriHealth Bethesda North Hospital on above: Order Comment: Specimen Type: BLOOD SPECIMENOrdering Facility: [facility] Address:[address] [place], [place] [address]Performed By: #### 65951- 2 ####[facility] LABCLIA [id number] [place], [place] [address]XYQ (Bld) [#/Vol]3.99 10*6/uLNormal3.90-5.20[facility] on above:Order Comment: Specimen Type: BLOOD SPECIMENOrdering Facility: [facility] Address:[address] [place], [place] [address]Performed By: #### 59656-5 ####[facility] LABIA [id number] [place], [place] [address]RUZ (Bld) [#/Vol]3.15 10*3/uLLow3.70-11.00[facility] on above:Order Comment: Specimen Type: BLOOD SPECIMENOrdering Facility: [facility] Address:[address] [place], [place] [address]Performed By: #### 03540- 2 ####[facility] LABCLIA [id number] [place], [place] [address]Txalbemvdodvu metabolic 2000 panelon 82-28-4621Tpqqfvy [Mass/Vol]3.8 g/dLLow3.9-4.9CMarietta Memorial Hospital on above:Order Comment: Specimen Type: BLOOD SPECIMENOrdering Facility: [facility] Address:[address] [place], [place] [address]Performed By: #### 2777- 1, , 43383-4 ####[facility] LABCLIA [id number] [place], [place] [address]DTL [Catalytic activity/Vol]77 U/LNormal 34-123[facility] on above:Order Comment: Specimen Type: BLOOD SPECIMENOrdering Facility: [facility] Address:[address] [place], [place] [address]Performed By: #### 2777-1, 62344-2, 75482-9 ####[facility] LABCLIA [id number] [place], [place] [address]VNL [Catalytic activity/Vol]30 U/LNormal7-38[facility] on above:Order Comment: Specimen Type: BLOOD SPECIMENOrdering Facility: [facility] Address:[address] [place], [place] [address]Performed By: #### 2777-1, , ####NATALIO [facility] LABCLIA [id number] [place], [place] [address]Aloim gap [Moles/Vol]10 mmol/LNormal8-15[facility] on above:Order Comment: Specimen Type: BLOOD SPECIMENOrdering Facility: [facility] Address:[address] [place] [address] Performed By: #### 2777-1, , ####[facility]SMITHVILLETOM [facility] LABCLIA [id number] [place], [place] [address]PZV [Catalytic activity/Vol]26 U/WAwpnls24-72CkqduidxiTriHealth Bethesda North Hospital on above:Order Comment: Specimen Type: BLOOD SPECIMENOrdering Facility: [facility] Address:[address] [place], [place] [address]Performed By: #### 2777- 1, , ####[facility]SMITHVILLETOM [facility] LABCLIA [id number] [place], [place] [address]Zpzoxyiaw [Mass/Vol]0.3 mg/dLNormal0.2-1.3 [facility] on above:Order Comment: Specimen Type: BLOOD SPECIMENOrdering Facility: [facility] Address:[address] [place], [place] [address]Performed By: #### 2777-1, , ####RAJIVMNTOM [facility] LABCLIA [id number] [place], [place] [address]Yfxfcbp [Mass/Vol]8.6 mg/dLNormal8.5-10.2CMarietta Memorial Hospital on above:Order Comment: Specimen Type: BLOOD SPECIMENOrdering Facility: [facility] Address:[address] [place] [address] Performed By: #### 2777-1, , ####RAJIVMNTOM [facility] LABCLIA [id number] [place], [place] [address]Shcsqwog [Moles/Vol]105 mmol/KWpijky41-083SgmqlnnvnDunlap Memorial HospitalComment on above: Order Comment: Specimen Type: BLOOD SPECIMENOrdering Facility: [facility] Address:[address] [place] [address]Uojamdwth By: #### 2777- 1, , ####[facility] LABCLIA [id number] [place], [place] [address]DR3 [Moles/Vol]22 mmol/ZKehjpk76-21QmfpbpufnTriHealth [facility] on above:Order Comment: Specimen Type: BLOOD SPECIMENOrdering Facility: [facility] Address:[address] [place], [place] [address]Performed By: #### 2777-1, , ####[facility] LABCLIA [id number] [place], [place] [address]Xtmndixury [Mass/Vol]0.45 mg/dLLow0.58-0.96[facility] Comment on above:Order Comment: Specimen Type: BLOOD SPECIMENOrdering Facility: [facility] Address:[address] [place], [place] [address] Performed By: #### 2777-1, , ####[facility] LABCLIA [id number] [place], [place] [address]lYONme SerPlBld CKD-EPI 5047448 mL/min/1.73m???Normal>=60[facility] on above:Order Comment: Specimen Type: BLOOD SPECIMENOrdering Facility: [facility] Address:[address] [place], [place] [address]Result Comment: Estimated Glomerular Filtration Rate (eGFR) is [...] reflect actual GFR.Performed By: #### 2777-1, , ####[facility] LABCLIA [id number] [place], [place] [address]Fynchgu [Mass/Vol]106 mg/bOJxvn65-13BnrbofmyaTriHealth Bethesda North Hospital on above:Order Comment: Specimen Type: BLOOD SPECIMENOrdering Facility: [facility] Address:[address] [place] [address]Svvpym Comment: The [place] Diabetes Association (ADA) provides guidance for cutoff [...] Standards of Medical Care in Diabetes 2016, [place] Diabetes Association. Diabetes Care. 2016.39(Suppl 1).Performed By: #### 2777-1, , ####[facility] LABCLIA [id number] [place], [place] [address]Cxsisiwdv [Moles/Vol]4.5 mmol/LNormal3.7-5.1 [facility] on above:Order Comment: Specimen Type: BLOOD SPECIMENOrdering Facility: [facility] Address:[address] [place], [place] [address]Bfpfbqasi By: #### 2777-1, , ####[facility] LABCLIA [id number] [place], [place] [address]Yfsuiwn [Mass/Vol]6.8 g/dLNormal6.3-8.0[facility] on above:Order Comment: Specimen Type: BLOOD SPECIMENOrdering Facility: [facility] Address:[address] [place] [address]Vfsfcltzb By: #### 2777-1, 35909-3, 50123-0 ####[facility] LABCLIA [id number] [place], [place] [address]Jgtnbs [Moles/Vol]137 mmol/L Mowmwy265-741SqawoganjTriHealth Bethesda North Hospital on above:Order Comment: Specimen Type: BLOOD SPECIMENOrdering Facility: [facility] Address:[address] [place], [place] [address]Performed By: #### 2777-1, , ####[facility] LABCLIA [id number] [place], [place] [address]Hmql nitrogen [Mass/Vol]19 mg/dLNormal7-21[facility] on above:Order Comment: Specimen Type: BLOOD SPECIMENOrdering Facility: [facility] Address:[address] [place], [place] [address]Performed By: #### 2777-1, , ####[facility] LABCLIA [id number] [place], [place] [address]Ofmbnoisn SerPl-mCncon [id number] [Mass/Vol]2.1 mg/dLNormal1.7-2.3 [facility] on above:Order Comment: Specimen Type: BLOOD SPECIMENOrdering Facility: [facility] Address:[address] [place], [place] [address]Performed By: #### 2777-1, , ####[facility] LABCLIA [id number] [place], [place] [address]Kopeuzhbl SerPl-mCncon [id number] [Mass/Vol]2.6 mg/dLLow2.7-4.8 [facility] on above:Order Comment: Specimen Type: BLOOD SPECIMENOrdering Facility: [facility] Address:[address] [place], [place] [address]Performed By: #### 2777-1, 74803-3, 07859-0 ####[facility] LABCLIA [id number] [place], [place] [address]([place])D3 [facility] 278[address]-fzcphqzsiojogv D3 [Mass/Vol]47.2 ng/mL Aruvvl52.0-80.0[facility] HospitalComment on above:Order Comment: Specimen Type: BLOOD SPECIMENOrdering Facility: [facility] Address:[address], [place] [address]Cyixjk Comment: Classification of 25 [place] Vitamin D status:Deficiency/Insufficiency: < or = 30 ng/m l.Sufficiency/Optimal Levels: 31-80 ng/mLToxicity: > 100 ng/mL.Test performed by chemiluminescent immunoassay.Performed By: #### 1989-3 ####[facility] LABCLIA [id number] [address] [address] [facility]ITAL[facility] panel Auto (Bld)on 34-35-6953Hbnfbbugaca distribution width (RBC) [Ratio]13.4 %11.5 - 15.0 %[facility] HospitalHematocrit (Bld) [Volume fraction]35.1 %Low36.0 - 46.0 %[facility] HospitalHemoglobin (Bld) [Mass/Vol]11.8 g/dL11.5 - 15.5 g/dLUc West Chester HospitalInterpretation and review of laboratory resultsAbnormalCSumma Health Barberton CampusH (RBC) [Entitic mass]30.3 pg26.0 - 34.0 pgClevelRegions HospitalHC (RBC) [Mass/Vol]33.6 g/dL30.5 - 36.0 g/dLOhioHealth Riverside Methodist HospitalV (RBC) [Entitic vol]90 fL80.0 - 100.0 fLCleveland ClinicNucleated RBC (Bld) [#/Vol]NINFClevelMercy Health St. Anne HospitalPlatelet mean volume (Bld) [Entitic vol]10.7 fL 9.0 - 12.7 fLCleveland ClinicPlatelets (Bld) [#/Vol]187 10*3/uLUc West [facility] Hospital RBC (Bld) [#/Vol]3.9 10*6/uL3.90 - 5.20 m/[facility] City HospitalWBC (Bld) [#/Vol] 5.87 10*3/uLBlanchard Valley Health System Blanchard Valley HospitalErythrocyte distribution width (RBC) [Ratio]13.4 %Ijaxlx20.5-15.0[facility] on above:Order Comment: Specimen Type: BLOOD SPECIMENOrdering Facility: [facility] Address:[address] [place], [place] [address]Performed By: #### 39019- 2 ####[facility] LABIA [id number] [place], [place] [address]Qlksylocdg (Bld) [Volume fraction]35.1 %Low36.0-46.0 [facility] on above:Order Comment: Specimen Type: BLOOD SPECIMENOrdering Facility: [facility] Address:[address] [place], [place] [address]Performed By: #### 12439-6 ####[facility] LABIA [id number] [place], [place] [address]Gvxjynztxq (Bld) [Mass/Vol]11.8 g/uVXjbvwj68.5-15.5CMarietta Memorial Hospital on above: Order Comment: Specimen Type: BLOOD SPECIMENOrdering Facility: [facility] Address:[address] [place], [place] [address]Performed By: #### 16899- 2 ####[facility] LABIA [id number] [place], [place] [address]USN (RBC) [Entitic mass]30.3 wmBkmmnq61.0-34.0[facility] on above:Order Comment: Specimen Type: BLOOD SPECIMENOrdering Facility: [facility] Address:[address] [place], [place] [address]Performed By: #### 27321-0 ####[facility] LABIA [id number] [place], [place] [address]HVAI (RBC) [Mass/Vol]33.6 g/nESfmnwv40.5-36.0[facility] on above: Order Comment: Specimen Type: BLOOD SPECIMENOrdering Facility: [facility] Address:[address] [place], [place] [address]Performed By: #### 97776- 2 ####[facility] LABCLIA [id number] [place], [place] [address]WUF (RBC) [Entitic vol]90.0 mEBhuuhx01.0-100.0[facility] on above:Order Comment: Specimen Type: BLOOD SPECIMENOrdering Facility: [facility] Address:[address] [place], [place] [address]Performed By: #### 00312-5 ####[facility] LABCLIA [id number] [place], [place] [address]Xuzyrtsmv RBC (Bld) [#/Vol]10*3/uLNormal<0.01[facility] on above:Order Comment: Specimen Type: BLOOD SPECIMENOrdering Facility: [facility] Address:[address] [place], [place] [address]Performed By: #### 91552- 2 ####[facility] LABCLIA [id number] [place], [place] [address]Vukptrjg mean volume (Bld) [Entitic vol]10.7 fLNormal 9.0-12.7CMarietta Memorial Hospital on above:Order Comment: Specimen Type: BLOOD SPECIMENOrdering Facility: [facility] Address:[address] [place], [place] [address]Performed By: #### 63014-3 ####[facility] LABCLIA [id number] [place], [place] [address]Aijjcwpew (Bld) [#/Vol]187 10*3/gKEhllbr991-959GeemodzziTriHealth [facility] on above: Order Comment: Specimen Type: BLOOD SPECIMENOrdering Facility: [facility] Address:[address] [place] [address]Gfaesedmk By: #### 16886- 2 ####[facility] LABCLIA [id number] [place], [place] [address]XCB (Bld) [#/Vol]3.90 10*6/uLNormal3.90-5.20[facility] on above:Order Comment: Specimen Type: BLOOD SPECIMENOrdering Facility: [facility] Address:[address] [place] [address]Fjyeepwbt By: #### 16816-8 ####[facility] LABCLIA [id number] [place], [place] [address]PDJ (Bld) [#/Vol]5.87 10*3/uLNormal3.70-11.00[facility] on above: Order Comment: Specimen Type: BLOOD SPECIMENOrdering Facility: [facility] Address:[address] [place] [address]Yzlupgqft By: #### 41969- 2 ####[facility] LABIA [id number] [place], [place] [address]Rbiiogjlqskjl metabolic 2000 panelOrdered By: Philly Guallpa on 79-87-2147Dwtzveu [Mass/Vol]4.2 g/dL3.9 - 4.9 g/dLClepeoples hospital ClinicALP [Catalytic activity/Vol]91 U/L34 - 123 U/LCleveland ClinicALT [Catalytic activity/Vol]29 U/L7 - 38 U/LCleveland ClinicAnion gap [Moles/Vol]9 mmol/L8 - 15 mmol/LCleveland ClinicAST [Catalytic activity/Vol]24 U/L13 - 35 U/LCleveland ClinicBilirubin [Mass/Vol]0.6 mg/dL0.2 - 1.3 mg/dLClepeoples hospital ClinicCalcium [Mass/Vol]9.2 mg/dL8.5 - 10.2 mg/dLClepeoples hospital ClinicChloride [Moles/Vol]101 mmol/L98 - 107 mmol/LCleveland ClinicCO2 [Moles/Vol]25 mmol/L22 - 30 mmol/L [facility] HospitalCreatinine [Mass/Vol]0.65 mg/dL0.58 - 0.96 mg/dLUc [facility] Hospital GFR/1.73 sq M.predicted among non-blacks MDRD (S/P/Bld) [Vol rate/Area]116 mL/min/{1.73_m2}- PINFCCleveland Clinic Children's Hospital for RehabilitationComment on above:Estimated Glomerular Filtration Rate (eGFR) is calculated using the 2020 CKD-EPI creatinine equation. This equation utilizes serum creatinine, sex, and age as parameters. The creatinine assay has traceable calibration to isotope dilution-mass spectrometry. Refer to KDIGO guidelines for clinical interpretation. In patients with unstable renal function, e.g. those with acute kidney injury, the eGFRmay not accurately reflect actual GFR.Glucose [Mass/Vol]110 mg/zMSapl63 - 99 mg/dL [facility] HospitalComment on above:The [place] Diabetes Association (ADA) provides guidance for cutoff [...] Standards of Medical Care in Diabetes 2016, [place] Diabetes Association. Diabetes Care. 2016.39(Suppl 1). Interpretation and review of laboratory resultsAbnormalCleveland ClinicPotassium [Moles/Vol]4.6 mmol/L3.7 - 5.1 mmol/LCleveland ClinicProtein [Mass/Vol]7 g/dL 6.3 - 8.0 g/dLLarimer ClinicSodium [Moles/Vol]135 mmol/OKyq106 - 144 mmol/L [facility] HospitalUrea nitrogen [Mass/Vol]26 mg/dLHigh7 - 21 mg/dLU[facility] Comprehensive metabolic 2000 panelon 02-26-8718Ikyahaz [Mass/Vol]4.2 g/dLNormal 3.9-4.9CMarietta Memorial Hospital on above:Order Comment: Specimen Type: BLOOD SPECIMENOrdering Facility: [facility] Address:[address] [place], [place] [address]Performed By: #### 2777-1, , ####[facility] LABCLIA [id number] [facility] MARY ELLENARIZONA STATE HOSPITALALONDRA [place] [address]JJQ [Catalytic activity/Vol]91 U/XHruxrx69-279AtsvxhdqrTriHealth [facility]hesda North Hospital on above:Order Comment: Specimen Type: BLOOD SPECIMENOrdering Facility: [facility] Address:[address] [place], [place] [address]Performed By: #### 2777-1, , ####NATALIO [facility] LABCLIA [id number] [facility] [place], [place] [address]ODC [Catalytic activity/Vol]29 U/LNormal7-38[facility] Comment on above:Order Comment: Specimen Type: BLOOD SPECIMENOrdering Facility: [facility] Address:[address] [place] [address] Performed By: #### 2777-1, , ####NATALIO [facility] LABCLIA [id number] [facility] MARY ELLENL.V. STABLER MEMORIAL H[place]ALEvaFIS[place], [place] [address]Wzqte gap [Moles/Vol]9 mmol/LNormal8-15[facility] on above:Order Comment: Specimen Type: BLOOD SPECIMENOrdering Facility: [facility] Address:[address] [place], [place] [address]Performed By: #### 2777- 1, , ####RAJIVMNTOM [facility] LABCLIA [id number] [facility] [place], [place] [address]IYD [Catalytic activity/Vol]24 U/LNormal 13-35[facility] on above:Order Comment: Specimen Type: BLOOD SPECIMENOrdering Facility: [facility] Address:[address] [place], [place] [address]Performed By: #### 2777-1, , ####[facility] LABCLIA [id number] [place], [place] [address]Nheykwhjz [Mass/Vol]0.6 mg/dLNormal0.2-1.3CMarietta Memorial Hospital on above:Order Comment: Specimen Type: BLOOD SPECIMENOrdering Facility: [facility] Address:[address] [place], [place] [address]Performed By: #### 2777-1, , ####[facility] LABCLIA [id number] [place], [place] [address]Hvxjdkx [Mass/Vol]9.2 mg/dLNormal8.5-10.2CMarietta Memorial Hospital on above:Order Comment: Specimen Type: BLOOD SPECIMENOrdering Facility: [facility] Address:[address] [place] [address] Performed By: #### 2777-1, , ####[facility] LABCLIA [id number] [place], [place] [address]Izszpuwr [Moles/Vol]101 mmol/MVtryux07-537NsgbfptrlTriHealth [facility] Hospital on above: Order Comment: Specimen Type: BLOOD SPECIMENOrdering Facility: [facility] Address:[address] [place], [place] [address]Performed By: #### 2777- 1, , ####[facility] LABCLIA [id number] [place], [place] [address]FS9 [Moles/Vol]25 mmol/ZHthfgd45-66TqtbcdfirTriHealth [facility] on above:Order Comment: Specimen Type: BLOOD SPECIMENOrdering Facility: [facility] Address:[address] [place], [place] [address]Performed By: #### 2777-1, , ####[facility] LABCLIA [id number] [place], [place] [address]Wgevqdgjhh [Mass/Vol]0.65 mg/dLNormal0.58-0.96[facility] Comment on above:Order Comment: Specimen Type: BLOOD SPECIMENOrdering Facility: [facility] Address:[address] [place] [address] Performed By: #### 2777-1, , ####[facility] LABCLIA [id number] [place], [place] [address]eTKZgw SerPlBld CKD-EPI 3167734 mL/min/1.73m???Normal>=60[facility] Perrysburg Hospitalment on above:Order Comment: Specimen Type: BLOOD SPECIMENOrdering Facility: [facility] Address:[address] [place], [place] [address]Result Comment: Estimated Glomerular Filtration Rate (eGFR) is [...] reflect actual GFR.Performed By: #### 2777-1, , ####[facility] LABCLIA [id number] [place], [place] [address]Iwgyulr [Mass/Vol]110 mg/jVGsal44-34DxffkechaMercy Health Perrysburg Hospitalment on above:Order Comment: Specimen Type: BLOOD SPECIMENOrdering Facility: [facility] Address:[address] [place] [address]Ezgwkw Comment: The [place] Diabetes Association (ADA) provides guidance for cutoff [...] Standards of Medical Care in Diabetes 2016, [place] Diabetes Association. Diabetes Care. 2016.39(Suppl 1).Performed By: #### 2777-1, , ####[facility] LABCLIA [id number] [place], [place] [address]Toylvfpvs [Moles/Vol]4.6 mmol/LNormal3.7-5.1 [facility] on above:Order Comment: Specimen Type: BLOOD SPECIMENOrdering Facility: [facility] Address:[address] [place], [place] [address]Performed By: #### 2777-1, , ####[facility] LABCLIA [id number] [place], [place] [address]Lpwiqlx [Mass/Vol]7.0 g/dLNormal6.3-8.0[facility] on above:Order Comment: Specimen Type: BLOOD SPECIMENOrdering Facility: [facility] Address:[address] [place], [place] [address]Performed By: #### 2777-1, , ####[facility] LABCLIA [id number] [place], [place] [address]Ttfqsh [Moles/Vol]135 mmol/L Piu572-403HfqiutcacTriHealth Bethesda North Hospital on above:Order Comment: Specimen Type: BLOOD SPECIMENOrdering Facility: [facility] Address:[address] [place], [place] [address]Performed By: #### 2777-1, , ####[facility] LABCLIA [id number] [place], [place] [address]Dima nitrogen [Mass/Vol]26 mg/dLHigh7-21[facility] on above:Order Comment: Specimen Type: BLOOD SPECIMENOrdering Facility: [facility] Address:[address] [place] [address]Dzsfffwid By: #### 2777-1, , ####[facility] LABCLIA [id number] [place], [place] [address]UJRFQCCJGgt 87-58-7359Xkynyakgn [Mass/Vol]2.1 mg/dL1.7 - 2.3 mg/dLClepeoples hospital ClinicMagnesium SerPl-mCncon 18-25-4367Lqewaazuw [Mass/Vol]2.1 mg/dLNormal1.7-2.3ClevelRutherford Regional Health SystemComtrinity health livingston hospital on above:Order Comment: Specimen Type: BLOOD SPECIMENOrdering Facility: [facility] Address:[address] [place] [address]Ujwqczijm By: #### 2777-1, , ####[facility] LABCLIA [id number] [place], [place] [address]Vodqlftcs [Mass/Vol]on 97-00-2956Rjgbzflvznwqvr and review of laboratory resultsNormalCregency hospital companyand [facility] Medical CenterNo Panel InformationOrdered By: Philly Guallpa on 62-80-1216Ctmqoqxqn ClinicPHOSPHORUS INORGANICon 96-36-3384Xfeknwico [Mass/Vol] 3.4 mg/dL2.7 - 4.8 mg/dLUc West [facility] HospitalPhosphate SerPl-mCncon 01-30-2025 Phosphate [Mass/Vol]3.4 mg/dLNormal2.7-4.8ClevelSycamore Medical Center on above:Order Comment: Specimen Type: BLOOD SPECIMENOrdering Facility: [facility] Address:[address] [place] [address]Umkvgddhg By: #### 2777-1, , ####[facility] LABCLIA [id number] [place], [place] [address]Pxrwceggv [Mass/Vol]on 87-88-7958Barcqijsxapjiw and review of laboratory resultsNormalCregency hospital companyand [facility] Samaritan Medical CenterCB panel Auto (Bld)on 51-42-2972Hsapleakyqn distribution width (RBC) [Ratio]13.5 %11.5 - 15.0 %[facility] HospitalHematocrit (Bld) [Volume fraction]34.3 %Low36.0 - 46.0 %[facility] HospitalHemoglobin (Bld) [Mass/Vol]11.4 g/dLLow11.5 - 15.5 g/dLUc West Chester HospitalInterpretation and review of laboratory resultsAbnormalCSumma Health Barberton CampusH (RBC) [Entitic mass]30.1 pg26.0 - 34.0 pg [facility] HospitalHC (RBC) [Mass/Vol]33.2 g/dL30.5 - 36.0 g/dLU[facility] MCV (RBC) [Entitic vol]90.5 fL80.0 - 100.0 fLCmercy health west hospital ClinicNucleated RBC (Bld) [#/Vol]NINFClevelcritical access hospital ClinicPlatelet mean volume (Bld) [Entitic vol]10.9 fL9.0 - 12.7 fLCmercy health west hospital ClinicPlatelets (Bld) [#/Vol]183 10*3/[facility] HospitalRBC (Bld) [#/Vol]3.79 10*6/uLLow3.90 - 5.20 m/[facility] City HospitalWBC (Bld) [#/Vol] 5.31 10*3/McKitrick HospitalErythrocyte distribution width (RBC) [Ratio]13.5 %Dxynqf33.5-15.0[facility] Memorial HospitalComtrinity health livingston hospital on above:Order Comment: Specimen Type: BLOOD SPECIMENOrdering Facility: [facility] Address:[address] [place], [place] [address]Performed By: #### 05726- 2 ####[facility]SMITHVILLETOM [facility] LABCLIA [id number] [place], [place] [address]Hhtvgbscwb (Bld) [Volume fraction]34.3 %Low36.0-46.0 [facility] on above:Order Comment: Specimen Type: BLOOD SPECIMENOrdering Facility: [facility] Address:[address] [place], [place] [address]Performed By: #### 03982-0 ####[facility] LABCLIA [id number] [place], [place] [address]Gbdiobhjzi (Bld) [Mass/Vol]11.4 g/dLLow11.5-15.5CMarietta Memorial Hospital on above:Order Comment: Specimen Type: BLOOD SPECIMENOrdering Facility: [facility] Address:[address] [place], [place] [address]Performed By: #### 78890- 2 ####[facility] LABCLIA [id number] [place], [place] [address]RQX (RBC) [Entitic mass]30.1 iuYcbnza35.0-34.0[facility] on above:Order Comment: Specimen Type: BLOOD SPECIMENOrdering Facility: [facility] Address:[address] [place], [place] [address]Performed By: #### 40067-5 ####[facility] LABIA [id number] [place], [place] [address]MOZV (RBC) [Mass/Vol]33.2 g/hDNatfpo86.5-36.0[facility] on above: Order Comment: Specimen Type: BLOOD SPECIMENOrdering Facility: [facility] Address:[address] [place], [place] [address]Performed By: #### 04355- 2 ####[facility] LABCLIA [id number] [place], [place] [address]TIS (RBC) [Entitic vol]90.5 rPTjgqvb60.0-100.0[facility] on above:Order Comment: Specimen Type: BLOOD SPECIMENOrdering Facility: [facility] Address:[address] [place], [place] [address]Performed By: #### 44618-7 ####[facility] LABIA [id number] [place], [place] [address]Ihfqenzbp RBC (Bld) [#/Vol]10*3/uLNormal<0.01[facility] on above:Order Comment: Specimen Type: BLOOD SPECIMENOrdering Facility: [facility] Address:[address] [place], [place] [address]Performed By: #### 06402- 2 ####[facility] LABCLIA [id number] [place], [place] [address]Mnjvrsma mean volume (Bld) [Entitic vol]10.9 fLNormal 9.0-12.7CMarietta Memorial Hospital on above:Order Comment: Specimen Type: BLOOD SPECIMENOrdering Facility: [facility] Address:[address] [place], [place] [address]Performed By: #### 20945-2 ####[facility] LABCLIA [id number] [place], [place] [address]Sylyzbqak (Bld) [#/Vol]183 10*3/tSFasvlu753-749CdgrsvxiiTriHealth [facility] on above: Order Comment: Specimen Type: BLOOD SPECIMENOrdering Facility: [facility] Address:[address] [place], [place] [address]Performed By: #### 72381- 2 ####[facility] LABCLIA [id number] [place], [place] [address]TFY (Bld) [#/Vol]3.79 10*6/uLLow3.90-5.20[facility] on above:Order Comment: Specimen Type: BLOOD SPECIMENOrdering Facility: [facility] Address:[address] [place], [place] [address]Performed By: #### 04104-9 ####[facility] LABIA [id number] [place], [place] [address]NOX (Bld) [#/Vol]5.31 10*3/uL Normal3.70-11.00[facility] on above:Order Comment: Specimen Type: BLOOD SPECIMENOrdering Facility: [facility] Address:[address] [place], [place] [address]Performed By: #### 45307-9 ####[facility]SMITHVILLETOM [facility] LABCLIA [id number] [place], [place] [address]Zffpxbeszqyhm metabolic 2000 panelOrdered By: Philly Guallpa on 50-47-0783Gyuojfu [Mass/Vol]3.9 g/dL3.9 - 4.9 g/dLLarimer ClinicALP [Catalytic activity/Vol]88 U/L34 - 123 U/LCleveland ClinicALT [Catalytic activity/Vol]32 U/L7 - 38 U/LCleveland ClinicAnion gap [Moles/Vol]7 mmol/LLow8 - 15 mmol/LCleveland ClinicAST [Catalytic activity/Vol]26 U/L13 - 35 U/LCleveland ClinicBilirubin [Mass/Vol]0.3 mg/dL0.2 - 1.3 mg/dLClepeoples hospital ClinicCalcium [Mass/Vol]8.9 mg/dL8.5 - 10.2 mg/dLLarimer ClinicChloride [Moles/Vol]104 mmol/L98 - 107 mmol/LCleveland ClinicCO2 [Moles/Vol]26 mmol/L22 - 30 mmol/L [facility] ClinicCreatinine [Mass/Vol]0.51 mg/dLLow0.58 - 0.96 mg/dLLarimer ClinicGFR/1.73 sq M.predicted among non-blacks MDRD (S/P/Bld) [...] eGFRmay not accurately reflect actual GFR.Glucose [Mass/Vol]100 mg/oVYevm01 - 99 mg/dL [facility] HospitalComment on above:The [place] Diabetes Association (ADA) provides guidance for cutoff [...] Standards of Medical Care in Diabetes 2016, [place] Diabetes Association. Diabetes Care. 2016.39(Suppl 1). Interpretation and review of laboratory resultsAbnormalCleveland ClinicPotassium [Moles/Vol]4.8 mmol/L3.7 - 5.1 mmol/LClevelcritical access hospital ClinicProtein [Mass/Vol]6.7 g/dL 6.3 - 8.0 g/dLLarimer ClinicSodium [Moles/Vol]137 mmol/L136 - 144 mmol/L [facility] HospitalUrea nitrogen [Mass/Vol]24 mg/dLHigh7 - 21 mg/dLOhio State Harding HospitalComprehensive metabolic 2000 panelon 86-34-6843Ieoiezs [Mass/Vol]3.9 g/dLNormal3.9-4.9CMarietta Memorial Hospital on above:Order Comment: Specimen Type: BLOOD SPECIMENOrdering Facility: [facility] Address:[address] [place], [place] [address]Performed By: #### 2777- 1, , ####[facility] LABCLIA [id number] [place], [place] [address]PVK [Catalytic activity/Vol]88 U/LNormal 34-123[facility] on above:Order Comment: Specimen Type: BLOOD SPECIMENOrdering Facility: [facility] Address:[address] [place], [place] [address]Performed By: #### 2777-1, , ####[facility] LABCLIA [id number] [place], [place] [address]VCH [Catalytic activity/Vol]32 U/LNormal7-38[facility] on above:Order Comment: Specimen Type: BLOOD SPECIMENOrdering Facility: [facility] Address:[address] [place], [place] [address]Performed By: #### 2777-1, , ####RAJIVMNTOM [facility] LABCLIA [id number] [place], [place] [address]Wgqia gap [Moles/Vol]7 mmol/LLow8-15[facility] on above:Order Comment: Specimen Type: BLOOD SPECIMENOrdering Facility: [facility] Address:[address] [place], [place] [address]Performed By: #### 2777-1, , ####RAJIVMNTOM [facility] LABCLIA [id number] [place], [place] [address]JUX [Catalytic activity/Vol]26 U/TMkksbt86-47YytxkyllvTriHealth Bethesda North Hospital on above:Order Comment: Specimen Type: BLOOD SPECIMENOrdering Facility: [facility] Address:[address] [place], [place] [address]Performed By: #### 2777-1, , ####NATALIO [facility] LABIA [id number] [place], [place] [address]Waftmcbpi [Mass/Vol]0.3 mg/dLNormal0.2-1.3CMarietta Memorial Hospital on above:Order Comment: Specimen Type: BLOOD SPECIMENOrdering Facility: [facility] Address:[address] [place], [place] [address]Performed By: #### 2777-1, , ####[facility]IVASP[facility] LABIA [id number] [place], [place] [address]Yqjsris [Mass/Vol]8.9 mg/dLNormal8.5-10.2CMarietta Memorial Hospital on above:Order Comment: Specimen Type: BLOOD SPECIMENOrdering Facility: [facility] Address:[address] [place] [address] Performed By: #### 2777-1, , ####[facility] LABCLIA [id number] [place], [place] [address]Elyubkmm [Moles/Vol]104 mmol/BIaypzq56-973HhgomxlyfMercy Health Perrysburg Hospitalment on above: Order Comment: Specimen Type: BLOOD SPECIMENOrdering Facility: [facility] Address:[address] [place], [place] [address]Performed By: #### 2777- 1, , ####[facility] LABCLIA [id number] [place], [place] [address]DE4 [Moles/Vol]26 mmol/XByyqqi29-09PuvrrxtyaTriHealth [facility] on above:Order Comment: Specimen Type: BLOOD SPECIMENOrdering Facility: [facility] Address:[address] [place], [place] [address]Performed By: #### 2777-1, , ####[facility] LABCLIA [id number] [place], [place] [address]Pkjztivvse [Mass/Vol]0.51 mg/dLLow0.58-0.96[facility] Comment on above:Order Comment: Specimen Type: BLOOD SPECIMENOrdering Facility: [facility] Address:[address] [place] [address] Performed By: #### 2777-1, , ####[facility] LABCLIA [id number] [place], [place] [address]gAQVwj SerPlBld CKD-EPI [id number] mL/min/1.73m???Normal>=60[facility] on above:Order Comment: Specimen Type: BLOOD SPECIMENOrdering Facility: [facility] Address:[address] [place], [place] [id number] Comment: Estimated Glomerular Filtration Rate (eGFR) is [...] reflect actual GFR.Performed By: #### 2777-1, , ####[facility] LABCLIA [id number] [place], [place] [address]Zyvdqbq [Mass/Vol]100 mg/nDOobf89-96GinnoxlshTriHealth Bethes[facility] Hospital on above:Order Comment: Specimen Type: BLOOD SPECIMENOrdering Facility: [facility] Address:[address] [place], [place] [address]Ynowje Comment: The [place] Diabetes Association (ADA) provides guidance for cutoff [...] Standards of Medical Care in Diabetes 2016, [place] [employer]. Diabetes Care. 2016.39(Suppl 1).Performed By: #### 2777-1, , ####[facility] LABCLIA [id number] [place], [place] [address]Uxqzlfavo [Moles/Vol]4.8 mmol/LNormal3.7-5.1 [facility] on above:Order Comment: Specimen Type: BLOOD SPECIMENOrdering Facility: [facility] Address:[address] [place], [place] [address]Pbjbbggpy By: #### 2777-1, , ####[facility] LABCLIA [id number] [place], [place] [address]Negdxbz [Mass/Vol]6.7 g/dLNormal6.3-8.0[facility] on above:Order Comment: Specimen Type: BLOOD SPECIMENOrdering Facility: [facility] Address:[address] [place], [place] [address]Performed By: #### 2777-1, , ####[facility] LABCLIA [id number] [place], [place] [address]Ymsbfg [Moles/Vol]137 mmol/L Irnpja347-869EmwsakqtsTriHealth Bethesda North Hospital on above:Order Comment: Specimen Type: BLOOD SPECIMENOrdering Facility: [facility] Address:[address] [place], [place] [address]Performed By: #### 2777-1, , ####[facility] LABCLIA [id number] [place], [place] [address]Gwig nitrogen [Mass/Vol]24 mg/dLHigh7-21[facility] on above:Order Comment: Specimen Type: BLOOD SPECIMENOrdering Facility: [facility] Address:[address] [place], [place] [address]Performed By: #### 2777-1, , ####[facility] LABCLIA [id number] [place], [place] [address]QRKUFIYWOyo 87-71-4482Ebbzipltr [Mass/Vol]2.2 mg/dL1.7 - 2.3 mg/dLUc West Chester HospitalMagnesium SerPl-mCncon 91-01-1300Nyvgduahp [Mass/Vol]2.2 mg/dLNormal1.7-2.3CMarietta Memorial Hospital on above:Order Comment: Specimen Type: BLOOD SPECIMENOrdering Facility: [facility] Address:[address] [place], [place] [address]Performed By: #### 2777-1, , ####[facility] LABCLIA [id number] [place], [place] [address]Ucodgrpjs [Mass/Vol]on 50-76-8651Pfjpmeuoljjslo and review of laboratory resultsNormalCKettering Health Greene MemorialPHOSPHORUS INORGANICon 01-24-2025 Phosphate [Mass/Vol]3.3 mg/dL2.7 - 4.8 mg/dLUc West Chester HospitalPhosphate SerPl-mCnc on 32-68-1019Uirsxldek [Mass/Vol]3.3 mg/dLNormal2.7-4.8CCleveland Clinic [facility] ClevelandComment on above:Order Comment: Specimen Type: BLOOD SPECIMENOrdering Facility: [facility] Address:[address] [place] [address]Dxjthtrjy By: #### 2777-1, 11022-4, 04476-1 ####[facility] LABCLIA [id number] [place], [place] [address]Lrrfptbnd [Mass/Vol]on 19-66-7450Kwrtamjqcaztnu and review of laboratory resultsNormal [facility] HospitalCBC panel Auto (Bld)on 54-29-4365Jwdpoteckwx distribution width (RBC) [Ratio]13.7 %11.5 - 15.0 %[facility] HospitalHematocrit (Bld) [Volume fraction]34.1 %Low36.0 - 46.0 %[facility] HospitalHemoglobin (Bld) [Mass/Vol]11.4 g/dLLow11.5 - 15.5 g/dLUc West Chester HospitalInterpretation and review of laboratory resultsAbnormalCSumma Health Barberton CampusH (RBC) [Entitic mass]30 pg26.0 - 34.0 pgClevelRegions HospitalHC (RBC) [Mass/Vol]33.4 g/dL30.5 - 36.0 g/dLOhioHealth Riverside Methodist HospitalV (RBC) [Entitic vol]89.7 fL80.0 - 100.0 fLCmercy health west hospital ClinicNucleated RBC (Bld) [#/Vol]NINFClevelMercy Health St. Anne HospitalPlatelet mean volume (Bld) [Entitic vol]10 fL 9.0 - 12.7 fLCCleveland Clinic Children's Hospital for RehabilitationPlatelets (Bld) [#/Vol]180 10*3/uLUc West Chester Hospital RBC (Bld) [#/Vol]3.8 10*6/uLLow3.90 - 5.20 m/[facility] City HospitalWBC (Bld) [#/Vol] 5.99 10*3/McKitrick HospitalErythrocyte distribution width (RBC) [Ratio]13.7 %Lrujzl12.5-15.0[facility] on above:Order Comment: Specimen Type: BLOOD SPECIMENOrdering Facility: [facility] Address:[address] [place], [place] [address]Performed By: #### 28142- 2 ####[facility] LABCLIA [id number] [place], [place] [address]Cqkcbehgyq (Bld) [Volume fraction]34.1 %Low36.0-46.0 [facility] on above:Order Comment: Specimen Type: BLOOD SPECIMENOrdering Facility: [facility] Address:[address] [place], [place] [address]Performed By: #### 43964-8 ####[facility] LABIA [id number] [place], [place] [address]Egthgngrvi (Bld) [Mass/Vol]11.4 g/dLLow11.5-15.5CMarietta Memorial Hospital on above:Order Comment: Specimen Type: BLOOD SPECIMENOrdering Facility: [facility] Address:[address] [place], [place] [address]Performed By: #### 60063- 2 ####[facility] LABCLIA [id number] [place], [place] [address]HCH (RBC) [Entitic mass]30.0 isVneiyf06.0-34.0[facility] on above:Order Comment: Specimen Type: BLOOD SPECIMENOrdering Facility: [facility] Address:[address] [place], [place] [address]Performed By: #### 60661-4 ####[facility] LABIA [id number] [place], [place] [address]LQMT (RBC) [Mass/Vol]33.4 g/qVTsyefb23.5-36.0[facility] on above: Order Comment: Specimen Type: BLOOD SPECIMENOrdering Facility: [facility] Address:[address] [place], [place] [address]Performed By: #### 09221- 2 ####[facility] LABCLIA [id number] [place], [place] [address]CQJ (RBC) [Entitic vol]89.7 pREojksk22.0-100.0[facility] on above:Order Comment: Specimen Type: BLOOD SPECIMENOrdering Facility: [facility] Address:[address] [place], [place] [address]Performed By: #### 34538-0 ####[facility] LABIA [id number] [place], [place] [address]Nlhutcpue RBC (Bld) [#/Vol]10*3/uLNormal<0.01[facility] on above:Order Comment: Specimen Type: BLOOD SPECIMENOrdering Facility: [facility] Address:[address] [place], [place] [address]Performed By: #### 37164- 2 ####[facility] LABCLIA [id number] [place], [place] [address]Mrlcbhkl mean volume (Bld) [Entitic vol]10.0 fLNormal 9.0-12.7CMarietta Memorial Hospital on above:Order Comment: Specimen Type: BLOOD SPECIMENOrdering Facility: [facility] Address:[address] [place], [place] [address]Performed By: #### 70834-3 ####[facility] LABIA [id number] [place], [place] [address]Zbeftifex (Bld) [#/Vol]180 10*3/wLGrrfkg475-431ZqahskjbuTriHealth [facility] on above: Order Comment: Specimen Type: BLOOD SPECIMENOrdering Facility: [facility] Address:[address] [place] [address]Ucyaaboug By: #### 06711- 2 ####[facility] LABCLIA [id number] [place], [place] [address]LMS (Bld) [#/Vol]3.80 10*6/uLLow3.90-5.20[facility] on above:Order Comment: Specimen Type: BLOOD SPECIMENOrdering Facility: [facility] Address:[address] [place], [place] [address]Performed By: #### 38923-5 ####[facility] LABCLIA [id number] [place], [place] [address]AJG ([facility]) [#/Vol]5.99 10*3/uL Normal3.70-11.00[facility] on above:Order Comment: Specimen Type: BLOOD SPECIMENOrdering Facility: [facility] Address:[address] [place] [address]Ajodrrjaq By: #### 55817-4 ####[facility]SMITHV[facility]LETOM [facility] LABCLIA [id number] [place], [place] [address]Radtjlnjhmygu metabolic 2000 panelOrdered By: Raheem Pozo on 20-79-7735Utzgraz [Mass/Vol]4 g/dL3.9 - 4.9 g/dLLarimer ClinicALP [Catalytic activity/Vol]91 U/L34 - 123 U/LCleveland ClinicALT [Catalytic activity/Vol]33 U/L7 - 38 U/LCleveland ClinicAnion gap [Moles/Vol]10 mmol/L8 - 15 mmol/LCleveland ClinicAST [Catalytic activity/Vol]21 U/L13 - 35 U/LCleveland ClinicBilirubin [Mass/Vol]0.4 mg/dL0.2 - 1.3 mg/dLClepeoples hospital ClinicCalcium [Mass/Vol]9 mg/dL8.5 - 10.2 mg/dLClepeoples hospital ClinicChloride [Moles/Vol]104 mmol/L 98 - 107 mmol/LCleveland ClinicCO2 [Moles/Vol]24 mmol/L22 - 30 mmol/LCleveland ClinicCreatinine [Mass/Vol]0.5 mg/dLLow0.58 - 0.96 mg/dLUc West Chester HospitalGFR/1.73 sq M.predicted among non-blacks MDRD (S/P/Bld) [Vol rate/Area]124 mL/min/{1.73_m2}- PINFCCleveland Clinic Children's Hospital for RehabilitationComment on above:Estimated Glomerular Filtration Rate (eGFR) is calculated using the 2020 CKD-EPI creatinine equation. This equation utilizes serum creatinine, sex, and age as parameters. The creatinine assay has traceable calibration to isotope dilution-mass spectrometry. Refer to KDIGO guidelines for clinical interpretation. In patients with unstable renal function, e.g. those with acute kidney injury, the eGFRmay not accurately reflect actual GFR.Glucose [Mass/Vol]108 mg/qSLhfc50 - 99 mg/dL [facility] on above:The [place] Diabetes Association (ADA) provides guidance for cutoff [...] Standards of Medical Care in Diabetes 2016, [place] Diabetes Association. Diabetes Care. 2016.39(Suppl 1). Interpretation and review of laboratory resultsAbnormalCleveland ClinicPotassium [Moles/Vol]4.5 mmol/L3.7 - 5.1 mmol/LCleveland ClinicProtein [Mass/Vol]6.9 g/dL 6.3 - 8.0 g/dLLarimer ClinicSodium [Moles/Vol]138 mmol/L136 - 144 mmol/L [facility] HospitalUrea nitrogen [Mass/Vol]26 mg/dLHigh7 - 21 mg/dLCleveland Clinic Medina Hospitalprehensive metabolic 2000 panelon 40-28-7000Cdifslo [Mass/Vol]4.0 g/dLNormal3.9-4.9CMarietta Memorial Hospital on above:Order Comment: Specimen Type: BLOOD SPECIMENOrdering Facility: [facility] Address:[address] [id number] By: #### 2777- 1, , ####NATALIO [facility] LABCLIA [id number] [facility] [place], [place] [address]QKM [Catalytic activity/Vol]91 U/LNormal 34-123[facility] on above:Order Comment: Specimen Type: BLOOD SPECIMENOrdering Facility: [facility] Address:[address] [place], [place] [address]Performed By: #### 2777-1, , ####NATALIO [facility] LABCLIA [id number] [facility] [place] [address]YJJ [Catalytic activity/Vol]33 U/LNormal7-38[facility] on above:Order Comment: Specimen Type: BLOOD SPECIMENOrdering Facility: [facility] Address:[address] [place], [place] [address]Performed By: #### 2777-1, , ####NAT[facility]IO [facility] LABCLIA [id number] [place], [place] [address]Eksyh gap [Moles/Vol]10 mmol/LNormal8-15[facility] on above:Order Comment: Specimen Type: BLOOD SPECIMENOrdering Facility: [facility] Address:[address] [place] [address] Performed By: #### 2777-1, , ####RAJIVMNTOM [facility] LABCLIA [id number] [place], [place] [address]YMG [Catalytic activity/Vol]21 U/XMgdxdr51-87DknqkacuiTriHealth Bethesda [facility] Hospital on above:Order Comment: Specimen Type: BLOOD SPECIMENOrdering Facility: [facility] Address:[address] [place], [place] [address]Performed By: #### 2777- 1, , ####[facility] LABCLIA [id number] [place], [place] [address]Kkzwauycd [Mass/Vol]0.4 mg/dLNormal0.2-1.3 [facility] on above:Order Comment: Specimen Type: BLOOD SPECIMENOrdering Facility: [facility] Address:[address] [place], [place] [address]Performed By: #### 2777-1, , ####[facility] LABCLIA [id number] [place], [place] [address]Ycmkspx [Mass/Vol]9.0 mg/dLNormal8.5-10.2CMarietta Memorial Hospital on above:Order Comment: Specimen Type: BLOOD SPECIMENOrdering Facility: [facility] Address:[address] [place] [address] Performed By: #### 2777-1, , ####[facility] LABCLIA [id number] [place], [place] [address]Pgfzptwh [Moles/Vol]104 mmol/UPzwiyf79-716OqkqexmwfTriHealth [facility] on above: Order Comment: Specimen Type: BLOOD SPECIMENOrdering Facility: [facility] Address:[address] [place], [place] [address]Performed By: #### 2777- 1, , ####[facility] LABCLIA [id number] [place], [place] [address]VR8 [Moles/Vol]24 mmol/MHwuzhl58-45CfhfkpgvjTriHealth [facility] on above:Order Comment: Specimen Type: BLOOD SPECIMENOrdering Facility: [facility] Address:[address] [place], [place] [address]Performed By: #### 2777-1, , ####[facility] LABCLIA [id number] [place], [place] [address]Udirugxtuf [Mass/Vol]0.50 mg/dLLow0.58-0.96[facility] Comment on above:Order Comment: Specimen Type: BLOOD SPECIMENOrdering Facility: [facility] Address:[address] [place] [address] Performed By: #### 2777-1, , ####[facility] LABCLIA [id number] [place], [place] [address]oPRKhc SerPlBld CKD-EPI 3209338 mL/min/1.73m???Normal>=60[facility] Hospitalment on above:Order Comment: Specimen Type: BLOOD SPECIMENOrdering Facility: [facility] Address:[address] [place] [address]Rhllqg Comment: Estimated Glomerular Filtration Rate (eGFR) is [...] reflect actual GFR.Performed By: #### 2777-1, , ####[facility] LABCLIA [id number] [place], [place] [address]Tskmipw [Mass/Vol]108 mg/vIYjoe48-16WtbtnxfusTriHealth [facility] on above:Order Comment: Specimen Type: BLOOD SPECIMENOrdering Facility: [facility] Address:[address] [place] [address]Kqvosj Comment: The [place] Diabetes Association (ADA) provides guidance for cutoff [...] Standards of Medical Care in Diabetes 2016, [place] Diabetes Association. Diabetes Care. 2016.39(Suppl 1).Performed By: #### 2777-1, , ####[facility] LABCLIA [id number] [place], [place] [address]Kwnwguyji [Moles/Vol]4.5 mmol/LNormal3.7-5.1 [facility] on above:Order Comment: Specimen Type: BLOOD SPECIMENOrdering Facility: [facility] Address:[address] [place], [place] [address]Performed By: #### 2777-1, , ####[facility] LABCLIA [id number] [place], [place] [address]Skrcwxm [Mass/Vol]6.9 g/dLNormal6.3-8.0[facility] on above:Order Comment: Specimen Type: BLOOD SPECIMENOrdering Facility: [facility] Address:[address] [place], [place] [address]Performed By: #### 2777-1, , ####[facility] LABCLIA [id number] [place], [place] [address]Qpgzbr [Moles/Vol]138 mmol/L Bnaojm803-662MnexoywkgTriHealth [facility]hesda [facility] Hospital on above:Order Comment: Specimen Type: BLOOD SPECIMENOrdering Facility: [facility] Address:[address] [place], [place] [address]Performed By: #### 2777-1, , ####[facility] LABCLIA [id number] [place], [place] [address]Jhwa nitrogen [Mass/Vol]26 mg/dLHigh7-21[facility] on above:Order Comment: Specimen Type: BLOOD SPECIMENOrdering Facility: [facility] Address:[address] [place] [address]Ucxxvynsq By: #### 2777-1, 92900-1, 36459-2 ####[facility] LABCLIA [id number] [place], [place] [address]IWYDBXGYDry 09-82-8580Tjtctweyu [Mass/Vol]2.2 mg/dL1.7 - 2.3 mg/dLUc West Chester HospitalMagnesium SerPl-mCncon 64-99-1743Twsmvegqa [Mass/Vol]2.2 mg/dLNormal1.7-2.3CUniversity Hospitals Health SystemComtrinity health [facility] hospital on above:Order Comment: Specimen Type: BLOOD SPECIMENOrdering Facility: [facility] Address:[address] [place] [address]Lkjqrknwc By: #### 2777-1, , 24284-6 ####[facility] LABCLIA [id number] [place], [place] [address]Uvcwmodlc [Mass/Vol]on 25-96-4015Blrolytwgjmapa and review of laboratory resultsNormalCKettering Health Greene MemorialPHOSPHORUS INORGANICon 01-16-2025 Phosphate [Mass/Vol]3.3 mg/dL2.7 - 4.8 mg/dLUc West Chester HospitalPhosphate SerPl-mCnc on 76-62-4107Zaskvtruc [Mass/Vol]3.3 mg/dLNormal2.7-4.8CMarietta Memorial Hospital on above:Order Comment: Specimen Type: BLOOD SPECIMENOrdering Facility: [facility] Address:[address] [place] [address]Lwzislsng By: #### 2777-1, , 25000-2 ####[facility] LABIA [id number] [place], [place] [address]Pnmrqaxri [Mass/Vol]on 28-92-4870Nfiwdpidwslmev and review of laboratory resultsNormal [facility] Valley HospitalCNPNon 46-69-0479WPBVIogbixLsdnchfiz Clinic ClevelandCB panel Auto (Bld)on 14-50-6573Lmvfojfddip distribution width (RBC) [Ratio]13.8 %11.5 - 15.0 %[facility] HospitalHematocrit (Bld) [Volume fraction]34.8 %Low36.0 - 46.0 %[facility] HospitalHemoglobin (Bld) [Mass/Vol]11.7 g/dL11.5 - 15.5 g/dLUc West Chester HospitalInterpretation and review of laboratory resultsAbnormal [facility] HospitalMCH (RBC) [Entitic mass]29.6 pg26.0 - 34.0 pgCCleveland Clinic Children's Hospital for Rehabilitation MCHC (RBC) [Mass/Vol]33.6 g/dL30.5 - 36.0 g/dLUc West Chester HospitalMCV (RBC) [Entitic vol]88.1 fL80.0 - 100.0 fLCCleveland Clinic Children's Hospital for RehabilitationNucleated RBC (Bld) [#/Vol]NINF [facility] HospitalPlatelet mean volume (Bld) [Entitic vol]11.3 fL9.0 - 12.7 fL [facility] HospitalPlatelets (Bld) [#/Vol]220 10*3/uLUc West Chester HospitalRBC (Bld) [#/Vol]3.95 10*6/uL3.90 - 5.20 m/uLUc West Chester HospitalWBC (Bld) [#/Vol]5.22 10*3/uL [facility] Blanchard Valley HospitalErythrocyte distribution width (RBC) [Ratio]13.8 %Vpycbp41.5-15.0Dun[facility] Memorial HospitalComtrinity health livingston hospital on above:Order Comment: Specimen Type: BLOOD SPECIMENOrdering Facility: [facility] Address:[address] [place], [place] [address]Performed By: #### 32807-9 ####[facility] [id number] [address] STREETHematocrit (Bld) [Volume fraction]34.8 %Low36.0-46.0[facility] on above:Order Comment: Specimen Type: BLOOD SPECIMENOrdering Facility: [facility] Address:[address] [place], [place] [address]Performed By: #### 82761-1 ####[facility] [id number] [address] STREETHemoglobin (Bld) [Mass/Vol]11.7 g/xGHkdvaz34.5-15.5CMarietta Memorial Hospital on above:Order Comment: Specimen Type: BLOOD SPECIMENOrdering Facility: [facility] Address:[address] [place], [place] [address]Performed By: #### 20442-9 ####[facility] [id number] [place], [place] [address]H (RBC) [Entitic mass]29.6 zbQyakxn57.0-34.0[facility] Comment on above:Order Comment: Specimen Type: BLOOD SPECIMENOrdering Facility: [facility] Address:[address] [place] [address] Performed By: #### 43037-4 ####[facility] [id number] [place], [place] [address]HC (RBC) [Mass/Vol]33.6 g/yUWswxwg95.5-36.0[facility] Memorial HospitalComtrinity health livingston hospital on above: Order Comment: Specimen Type: BLOOD SPECIMENOrdering Facility: [facility] Address:[address] [place], [place] [address]Performed By: #### 80602- 2 ####[facility] [id number] [place], [place] [address]V (RBC) [Entitic vol]88.1 fLNormal 80.0-100.0[facility] Memorial HospitalComtrinity health livingston hospital on above:Order Comment: Specimen Type: BLOOD SPECIMENOrdering Facility: [facility] Address:[address] [place], [place] [address]Performed By: #### 47156-9 ####[facility] [id number] [place] [address] RBC (Bld) [#/Vol]10*3/uLNormal<0.01[facility] on above:Order Comment: Specimen Type: BLOOD SPECIMENOrdering Facility: [facility] Address:[address] [place], [place] [address]Performed By: #### 49777-9 ####[facility] [id number] [place] [address] [place] OF AMERICAPlatelet mean volume (Bld) [Entitic vol]11.3 fLNormal9.0-12.7CMarietta Memorial Hospital on above:Order Comment: Specimen Type: BLOOD SPECIMENOrdering Facility: [facility] Address:[address] [place], [place] [address]Performed By: #### 73902-1 ####[facility] [id number] [place] [address] [place] AMERICAPlatelets (Bld) [#/Vol]220 10*3/gSUzaccv015-268VeilzashqDunlap Memorial Hospital Comment on above:Order Comment: Specimen Type: BLOOD SPECIMENOrdering Facility: [facility] Address:[address] [place] [address] Performed By: #### 31211-5 ####[facility] [id number] [place] [address] [place] AMERICARBC (Bld) [#/Vol]3.95 10*6/uLNormal3.90-5.20[facility] on above: Order Comment: Specimen Type: BLOOD SPECIMENOrdering Facility: [facility] Address:[address] [place], [place] [address]Performed By: #### 18833- 2 ####[facility] [id number] [place] [address] [place] AMERICAWBC (Bld) [#/Vol]5.22 10*3/uLNormal 3.70-11.00[facility] ClevelandComment on above:Order Comment: Specimen Type: BLOOD SPECIMENOrdering Facility: [facility] Address:[address] [place], [place] [address]Performed By: #### 13493-4 ####[facility] [id number] [facility] [id number] [address] [place] AMERICACNCNPATEDon 92-70-2565MGGQRYNMGKxgtxwOzoxxbffq [facility] CNOVon 99-34-4733KAMZQpnumkCfsuswqzw [facility] RidgeComprehensive metabolic 2000 panelon 26-31-0904Vsppuwd [Mass/Vol]4 g/dL3.9 - 4.9 g/dLLarimer ClinicALP [Catalytic activity/Vol]111 U/L34 - 123 U/LCleveland ClinicALT [Catalytic activity/Vol]41 U/LHigh7 - 38 U/LCleveland ClinicAnion gap [Moles/Vol]12 mmol/L8 - 15 mmol/LCleveland ClinicAST [Catalytic activity/Vol]28 U/L13 - 35 U/L [facility] HospitalBilirubin [Mass/Vol]0.4 mg/dL0.2 - 1.3 mg/dLU[facility] Calcium [Mass/Vol]9.1 mg/dL8.5 - 10.2 mg/dLUc West Chester HospitalChloride [Moles/Vol] 103 mmol/L98 - 107 mmol/LCleveland ClinicCO2 [Moles/Vol]22 mmol/L22 - 30 mmol/L [facility] HospitalCreatinine [Mass/Vol]0.52 mg/dLLow0.58 - 0.96 mg/dLUc West Chester HospitalGFR/1.73 sq M.predicted among non-blacks MDRD (S/P/Bld) [Vol [...] eGFRmay not accurately reflect actual GFR.Glucose [Mass/Vol]104 mg/tYNrne86 - 99 mg/dL [facility] on above:The [place] Diabetes Association (ADA) provides guidance for cutoff [...] Standards of Medical Care in Diabetes 2016, [place] Diabetes Association. Diabetes Care. 2016.39(Suppl 1). Interpretation and review of laboratory resultsAbnormalCleveland ClinicPotassium [Moles/Vol]4.6 mmol/L3.7 - 5.1 mmol/LCmercy health west hospital ClinicProtein [Mass/Vol]7.3 g/dL 6.3 - 8.0 g/dLFairfield Medical Centerodium [Moles/Vol]137 mmol/L136 - 144 mmol/L [facility] HospitalUrea nitrogen [Mass/Vol]22 mg/dLHigh7 - 21 mg/dLUc [facility] Hospital Albumin [Mass/Vol]4.0 g/dLNormal3.9-4.9CMarietta Memorial Hospital on above:Order Comment: Specimen Type: BLOOD SPECIMENOrdering Facility: [facility] Address:[address] [place], [place] [address]Performed By: #### 56249-7, 88087-2, 27701-02 ####[facility] [id number] [place] [address] [place] AMERICAALP [Catalytic activity/Vol]111 U/SMzyeka38-964RafjzpppeTriHealth [facility] on above:Order Comment: Specimen Type: BLOOD SPECIMENOrdering Facility: [facility] Address:[address] [place], [place] [address]Performed By: #### 95971- 9, 57602-8, 2777- ####[facility] [id number] [place] [address] [place]ALT [Catalytic activity/Vol]41 U/LHigh7-38[facility] on above:Order Comment: Specimen Type: BLOOD SPECIMENOrdering Facility: [facility] Address:[address] [place], [place] [address]Performed By: #### 79033- 9, 35247-2, 2777-1 ####[facility] [id number] [place] [address] [place] AMERICAAnion gap [Moles/Vol] 12 mmol/LNormal8-15[facility] on above:Order Comment: Specimen Type: BLOOD SPECIMENOrdering Facility: [facility] Address:[address] [place], [place] [address]Performed By: #### 70042-4, 41451-5, 2777-1 ####[facility] [id number] [place] [address] [place] AMERICAAST [Catalytic activity/Vol]28 U/EPbnrbs88-48NoszowkagTriHealth [facility] Hospital on above:Order Comment: Specimen Type: BLOOD SPECIMENOrdering Facility: [facility] Address:[address] [place], [place] [address]Performed By: #### 21486-8, 49586-4, 2777-1 ####[facility] [id number] [place] [address] [place] AMERICABilirubin [Mass/Vol]0.4 mg/dL Normal0.2-1.3CMarietta Memorial Hospital on above:Order Comment: Specimen Type: BLOOD SPECIMENOrdering Facility: [facility] Address:[address] [place], [place] [address]Performed By: #### 75824-7, 33325-9, 2777-1 ####[facility] [id number] [place] [address] [place] AMERICACalcium [Mass/Vol]9.1 mg/dLNormal 8.5-10.2CMarietta Memorial Hospital on above:Order Comment: Specimen Type: BLOOD SPECIMENOrdering Facility: [facility] Address:[address] [place], [place] [address]Performed By: #### 84883-5, 68073-8, 2777-1 ####[facility] [id number] [place] [address] [place] OF AMERICAChloride [Moles/Vol]103 mmol/L Qpbfud72-079ZxfxtngcyTriHealth [facility] on above:Order Comment: Specimen Type: BLOOD SPECIMENOrdering Facility: [facility] Address:[address] [place], [place] [address]Performed By: #### 70544-6, 76025-8, 2777- ####[facility] [id number] [place] [address] [place] AMERICACO2 [Moles/Vol]22 mmol/LNormal 22-30[facility] on above:Order Comment: Specimen Type: BLOOD SPECIMENOrdering Facility: [facility] Address:[address] [place], [place] [address]Performed By: #### 71320-2, 39340-2, 277- ####[facility] [id number] [place] [address] [place] AMERICACreatinine [Mass/Vol]0.52 mg/dLLow0.58-0.96[facility] on above:Order Comment: Specimen Type: BLOOD SPECIMENOrdering Facility: [facility] Address:[address] [place], [place] [address]Performed By: #### 17123-4, 61377-0, 2777-1 ####[facility] [id number] [place] [address] [place] AMERICACreatinine and Glomerular filtration rate.predicted panel (S/P/Bld)123 mL/min/1.73m???Normal>=60[facility] on above:Order Comment: Specimen Type: BLOOD SPECIMENOrdering Facility: [facility] Address:[address] [place], [place] [address]Result Comment: Estimated Glomerular Filtration Rate (eGFR) is [...] not accurately reflect actual GFR.Performed By: #### 91890-6, 27048-9, 2777-1 ####[facility] [id number] [place] [address] [place] AMERICAGlucose [Mass/Vol]104 mg/dLHigh 74-99[facility] on above:Order Comment: Specimen Type: BLOOD SPECIMENOrdering Facility: [facility] Address:[address] [place], [place] [address]ult Comment: The [place] Diabetes Association (ADA) provides guidance for cutoff [...] Standards of Medical Care in Diabetes 2016, [place] Diabetes Association. Diabetes Care. 2016.39(Suppl 1).Performed By: #### 79568- 9, 07465-9, 2777-1 ####[facility] [id number] [place] [address] [place] AMERICAPotassium [Moles/Vol] 4.6 mmol/LNormal3.7-5.1CMarietta Memorial Hospital on above:Order Comment: Specimen Type: BLOOD SPECIMENOrdering Facility: [facility] Address:[address] [place], [place] [address]Performed By: #### 36523-4, 57502-3, 2777- ####[facility] [id number] [place] [address] [place] AMERICAProtein [Mass/Vol]7.3 g/dLNormal 6.3-8.0[facility] on above:Order Comment: Specimen Type: BLOOD SPECIMENOrdering Facility: [facility] Address:[address] [place], [place] [address]Performed By: #### 14698-9, 49051-3, 2777-1 ####[facility] [id number] [place] [address] [place] AMERICASodium [Moles/Vol]137 mmol/JDagpga413-389AeiwlqfleTriHealth Bethesda North Hospital on above:Order Comment: Specimen Type: BLOOD SPECIMENOrdering Facility: [facility] Address:[address] [place], [place] [address]Performed By: #### 34184-2, 01489-1, 2777- ####[facility] [id number] [place] [address] [place] AMERICAUrea nitrogen [Mass/Vol]22 mg/dLHigh7-21[facility] on above:Order Comment: Specimen Type: BLOOD SPECIMENOrdering Facility: [facility] Address:[address] [place], [place] [address]Performed By: #### 65414-1, 92956-1, 2777-1 ####[facility] [id number] [place] [address] [place] OF AMERICAMAGNESIUMon 42-78-5152Ytgmjfwrl [Mass/Vol]2.1 mg/dL1.7 - 2.3 mg/dL [facility] HospitalMagnesium SerPl-mCncon 01-22-1772Khahcqyfb [Mass/Vol]2.1 mg/dL Normal1.7-2.3CMarietta Memorial Hospital on above:Order Comment: Specimen Type: BLOOD SPECIMENOrdering Facility: [facility] Address:[address] [place], [place] [address]Performed By: #### 27663-9, 75413-0, 2777-1 ####[facility] [id number] [address] Panel Informationon 01-09-2025 Interpretation and review of laboratory resultsNormalCKettering Health Greene MemorialPHOSPHORUS INORGANICon 33-03-7257Kpefcyxds [Mass/Vol]3.2 mg/dL2.7 - 4.8 mg/dLUc West Chester HospitalPhosphate SerPl-mCncon 19-85-7883Gocfgvlji [Mass/Vol]3.2 mg/dLNormal2.7-4.8CMarietta Memorial Hospital on above:Order Comment: Specimen Type: BLOOD SPECIMENOrdering Facility: [facility] Address:[address] [place], [place] [address]Performed By: #### 80370-9, 65371-2, 2777-1 ####[facility] [id number] [place] [address] panel Auto (Bld)on 01-02-2025 Erythrocyte distribution width (RBC) [Ratio]13.4 %11.5 - 15.0 %[facility] Hematocrit (Bld) [Volume fraction]34.2 %Low36.0 - 46.0 %[facility] Hemoglobin (Bld) [Mass/Vol]11.6 g/dL11.5 - 15.5 g/dLUc [facility] Hospital Interpretation and review of laboratory resultsAbnormalCSumma Health Barberton CampusH (RBC) [Entitic mass]29.5 pg26.0 - 34.0 pgCSumma Health Barberton CampusHC (RBC) [Mass/Vol]33.9 g/dL30.5 - 36.0 g/dLOhioHealth Riverside Methodist HospitalV (RBC) [Entitic vol]87 fL80.0 - 100.0 fL [facility] HospitalNucleated RBC (Bld) [#/Vol]NINFCleveland ClinicPlatelet mean volume (Bld) [Entitic vol]10.3 fL9.0 - 12.7 fLCleveland ClinicPlatelets (Bld) [#/Vol]182 10*3/uLUc West Chester HospitalRBC (Bld) [#/Vol]3.93 10*6/uL3.90 - 5.20 m/uL [facility] HospitalWBC (Bld) [#/Vol]5.5 10*3/uLBlanchard Valley Health [facility] Erythrocyte distribution width (RBC) [Ratio]13.4 %Vhtmuo48.5-15.0[facility] on above:Order Comment: Specimen Type: BLOOD SPECIMENOrdering Facility: [facility] Address:[address] [place], [place] [address]Performed By: #### 65175-9 ####[facility] LABCLIA [id number] [place], [place] [address]Cslccvbhkh (Bld) [Volume fraction]34.2 %Low36.0-46.0[facility] on above: Order Comment: Specimen Type: BLOOD SPECIMENOrdering Facility: [facility] Address:[address] [place], [place] [address]Performed By: #### 55192- 2 ####[facility] LABCLIA [id number] [place], [place] [address]Mylvsbscnk (Bld) [Mass/Vol]11.6 g/fMRsxoiu72.5-15.5 [facility] on above:Order Comment: Specimen Type: BLOOD SPECIMENOrdering Facility: [facility] Address:[address] [place], [place] [address]Performed By: #### 10290-8 ####[facility] LABIA [id number] [place], [place] [address]KOL (RBC) [Entitic mass]29.5 lgQragmf40.0-34.0[facility] on above: Order Comment: Specimen Type: BLOOD SPECIMENOrdering Facility: [facility] Address:[address] [place], [place] [address]Performed By: #### 17360- 2 ####[facility] LABCLIA [id number] [place], [place] [address]VXMM (RBC) [Mass/Vol]33.9 g/rVThufaq40.5-36.0[facility] on above:Order Comment: Specimen Type: BLOOD SPECIMENOrdering Facility: [facility] Address:[address] [place], [place] [address]Performed By: #### 09101-4 ####[facility] LABCLIA [id number] [place], [place] [address]ZRE (RBC) [Entitic vol]87.0 eQFqygqr36.0-100.0[facility] on above: Order Comment: Specimen Type: BLOOD SPECIMENOrdering Facility: [facility] Address:[address] [place], [place] [address]Performed By: #### 23902- 2 ####[facility] LABCLIA [id number] [place], [place] [address]Yfokdqgvo RBC (Bld) [#/Vol]10*3/uLNormal<0.01[facility] on above:Order Comment: Specimen Type: BLOOD SPECIMENOrdering Facility: [facility] Address:[address] [place], [place] [address]Performed By: #### 17938-5 ####[facility] LABCLIA [id number] [place], [place] [address]Jrcrxxya mean volume (Bld) [Entitic vol]10.3 fLNormal9.0-12.7CMarietta Memorial Hospital on above:Order Comment: Specimen Type: BLOOD SPECIMENOrdering Facility: [facility] Address:[address] [place] [address] Performed By: #### 79866-3 ####[facility] LABCLIA [id number] [place], [place] [address]Ixuqeqtra (Bld) [#/Vol]182 10*3/zHFpcuoq801-717KwgzqokiwTriHealth Bethesda North Hospital on above:Order Comment: Specimen Type: BLOOD SPECIMENOrdering Facility: [facility] Address:[address] [place], [place] [address]Performed By: #### 96092-2 ####[facility] LABCLIA [id number] [place], [place] [address]DDR (Bld) [#/Vol]3.93 10*6/uLNormal3.90-5.20[facility] on above:Order Comment: Specimen Type: BLOOD SPECIMENOrdering Facility: [facility] Address:[address] [place], [place] [address]Performed By: #### 60590-8 ####[facility] LABIA [id number] [place], [place] [address]HBJ (Bld) [#/Vol]5.50 10*3/uLNormal3.70-11.00[facility] on above: Order Comment: Specimen Type: BLOOD SPECIMENOrdering Facility: [facility] Address:[address] [place], [place] [address]Performed By: #### 08239- 2 ####[facility] LABIA [id number] [place], [place] [address]Rarglvhuyktqf metabolic 2000 panelOrdered By: Dona Crowder on 67-04-1130Uzfxpns [Mass/Vol]4 g/dL3.9 - 4.9 g/dLLarimer ClinicALP [Catalytic activity/Vol]103 U/L34 - 123 U/LCleveland ClinicALT [Catalytic activity/Vol]29 U/L7 - 38 U/LCleveland ClinicAnion gap [Moles/Vol]10 mmol/L8 - 15 mmol/LCleveland ClinicAST [Catalytic activity/Vol]19 U/L13 - 35 U/LCleveland ClinicBilirubin [Mass/Vol]0.5 mg/dL0.2 - 1.3 mg/dLClepeoples hospital ClinicCalcium [Mass/Vol]9.6 mg/dL8.5 - 10.2 mg/dLLarimer ClinicChloride [Moles/Vol]100 mmol/L98 - 107 mmol/LCleveland ClinicCO2 [Moles/Vol]26 mmol/L22 - 30 mmol/L [facility] ClinicCreatinine [Mass/Vol]0.54 mg/dLLow0.58 - 0.96 mg/dLLarimer ClinicGFR/1.73 sq M.predicted among non-blacks MDRD (S/P/Bld) [Vol rate/Area]122 mL/min/{1.73_m2}- PINFClevelMercy Health St. Anne HospitalComment on above:Estimated Glomerular Filtration Rate (eGFR) is calculated using the 2020 CKD-EPI creatinine equation. This equation utilizes serum creatinine, sex, and age as parameters. The creatinine assay has traceable calibration to isotope dilution-mass spectrometry. Refer to KDIGO guidelines for clinical interpretation. In patients with unstable renal function, e.g. those with acute kidney injury, the eGFRmay not accurately reflect actual GFR.Glucose [Mass/Vol]114 mg/iIIrml50 - 99 mg/dL [facility] HospitalComment on above:The [place] Diabetes Association (ADA) provides guidance for cutoff [...] Standards of Medical Care in Diabetes 2016, [place] Diabetes Association. Diabetes Care. 2016.39(Suppl 1). Interpretation and review of laboratory resultsAbnormalCleveland ClinicPotassium [Moles/Vol]4.3 mmol/L3.7 - 5.1 mmol/LCleveland ClinicProtein [Mass/Vol]7.1 g/dL 6.3 - 8.0 g/dLCleveland ClinicSodium [Moles/Vol]136 mmol/L136 - 144 mmol/L [facility] nitrogen [Mass/Vol]27 mg/dLHigh7 - 21 mg/dLCleveland Clinic Medina Hospitalprehensive metabolic 2000 panelon 63-53-1211Ernwwlk [Mass/Vol]4.0 g/dLNormal3.9-4.9CMarietta [facility] Hospital on above:Order Comment: Specimen Type: BLOOD SPECIMENOrdering Facility: [facility] Address:[address] [place], [place] [address]Performed By: #### 39178- 8, 40439-4, 2776-07 ####[facility] LABCLIA [id number] [place], [place] [address]DJQ [Catalytic activity/Vol]103 U/LNormal 34-123[facility] on above:Order Comment: Specimen Type: BLOOD SPECIMENOrdering Facility: [facility] Address:[address] [place], [place] [address]Performed By: #### 84308-0, , 2776-07 ####[facility] LABIA [id number] [place], [place] [address]UMU [Catalytic activity/Vol]29 U/LNormal7-38[facility] on above:Order Comment: Specimen Type: BLOOD SPECIMENOrdering Facility: [facility] Address:[address] [place], [place] [address]Performed By: #### 19401-2, , 2776-07 ####[facility] LABCLIA [id number] [place], [place] [address]Erirw gap [Moles/Vol]10 mmol/LNormal8-15[facility] on above:Order Comment: Specimen Type: BLOOD SPECIMENOrdering Facility: [facility] Address:[address] [place] [address] Performed By: #### 91089-0, 42786-9, 2776- ####[facility] LABCLIA [id number] [place], [place] [address]QKE [Catalytic activity/Vol]19 U/SOzpmph62-49DihzabxywTriHealth Bethesda North Hospital on above:Order Comment: Specimen Type: BLOOD SPECIMENOrdering Facility: [facility] Address:[address] [place], [place] [address]Performed By: #### 95053- 8, 91634-9, 2776- ####[facility] LABCLIA [id number] [place], [place] [address]Naonrbxze [Mass/Vol]0.5 mg/dLNormal0.2-1.3 [facility] on above:Order Comment: Specimen Type: BLOOD SPECIMENOrdering Facility: [facility] Address:[address] [place], [place] [address]Performed By: #### 12702-4, , 2776-07 ####[facility] LABCLIA [id number] [place], [place] [address]Tleykur [Mass/Vol]9.6 mg/dLNormal8.5-10.2CMarietta Memorial Hospital on above:Order Comment: Specimen Type: BLOOD SPECIMENOrdering Facility: [facility] Address:[address] [place] [address] Performed By: #### 42917-0, , 2776-07 ####[facility] LABCLIA [id number] [place], [place] [address]Gtojlcft [Moles/Vol]100 mmol/XPcadhk32-887LpmegurbiTriHealth Bethesda North Hospital on above: Order Comment: Specimen Type: BLOOD SPECIMENOrdering Facility: [facility] Address:[address] [place], [place] [address]Performed By: #### 57315- 8, , 2776- ####RAJIVMNTOM [facility] LABCLIA [id number] [place], [place] [address]PS6 [Moles/Vol]26 mmol/BCqonnf57-02KjclsfaitTriHealth Bethesda North Hospital on above:Order Comment: Specimen Type: BLOOD SPECIMENOrdering Facility: [facility] Address:[address] [place] [address]Pbuksegzw By: #### 17179-3, , 2776-07 ####[facility] LABCLIA [id number] [place], [place] [address]Eacugcnzgr [Mass/Vol]0.54 mg/dLLow0.58-0.96[facility] Comment on above:Order Comment: Specimen Type: BLOOD SPECIMENOrdering Facility: [facility] Address:[address] [place], [place] [address] Performed By: #### 68172-9, , 2776-07 ####[facility] LABCLIA [id number] [place], [place] [address]Ytwaacuwwy and Glomerular filtration rate.predicted panel (S/P/Bld)122 mL/min/1.73m???Normal >=60[facility] on above:Order Comment: Specimen Type: BLOOD SPECIMENOrdering Facility: [facility] Address:[address] [place] [address]Irymxx Comment: Estimated Glomerular Filtration Rate (eGFR) is calculated using the 2020 CKD-EPI creatinine equation. This equation utilizes serum creatinine, sex, and age as parameters. The creatinine assay has traceable calibration to isotope dilution-mass spectrometry. Refer to KDIGO guidelines for clinical interpretation. In patients with unstable renal function, e.g. those with acute kidney injury, the eGFR may not accurately reflect actual GFR.Performed By: #### 38391-4, , 2776-07 ####[facility] LABCLIA [id number] [place], [place] [address]Eyllzbd [Mass/Vol]114 mg/xIPjis00-48EskqldywhTriHealth [facility] on above:Order Comment: Specimen Type: BLOOD SPECIMENOrdering Facility: [facility] Address:[address] [place] [address]Klvltb Comment: The [place] Diabetes Association (ADA) provides guidance for cutoff [...] Standards of Medical Care in Diabetes 2016, [place] Diabetes Association. Diabetes Care. 2016.39(Suppl 1).Performed By: #### 61205-5, 93181-2, 2776-07 ####[facility] LABCLIA [id number] [place], [place] [address]Yxgtkgplv [Moles/Vol]4.3 mmol/LNormal3.7-5.1CUniversity Hospitals Health System Comment on above:Order Comment: Specimen Type: BLOOD SPECIMENOrdering Facility: [facility] Address:[address] [place] [address] Performed By: #### 82662-8, , 2776-07 ####[facility] LABIA [id number] [place], [place] [address]Jvdcgvf [Mass/Vol]7.1 g/dLNormal6.3-8.0[facility] Memorial HospitalComment on above:Order Comment: Specimen Type: BLOOD SPECIMENOrdering Facility: [facility] Address:[address] [place], [place] [address]Performed By: #### 51522- 8, , 2776-07 ####[facility] LABIA [id number] [place], [place] [address]Lxlwzy [Moles/Vol]136 mmol/VDrvbkf229-091 [facility] Memorial HospitalComtrinity health living[facility] on above:Order Comment: Specimen Type: BLOOD SPECIMENOrdering Facility: [facility] Address:[address] [place] [address]Unmhhcwqh By: #### 39893-2, , 2776-07 ####[facility] LABCLIA [id number] [place], [place] [address]Xesk nitrogen [Mass/Vol]27 mg/dLHigh7-21[facility] on above:Order Comment: Specimen Type: BLOOD SPECIMENOrdering Facility: [facility] Address:[address] [place] [address] Performed By: #### 05206-9, , 2776-07 ####[facility] LABCLIA [id number] [place], [place] [address]RMHBIDBQEpu 91-06-8247Ltyyqtnjv [Mass/Vol]2.1 mg/dL1.7 - 2.3 mg/dLUc West Chester HospitalMagnesium SerPl-mCncon 34-79-4977Vyswfumdu [Mass/Vol]2.1 mg/dLNormal1.7-2.3CMarietta Memorial Hospital on above:Order Comment: Specimen Type: BLOOD SPECIMENOrdering Facility: [facility] Address:[address] [place], [place] [address]Performed By: #### 77913-7, , 2776-07 ####[facility] LABCLIA [id number] [place], [place] [address]Ejhzazptl [Mass/Vol]on 92-23-9127Ryxgpjyuajaxxn and review of laboratory resultsNormalCKettering Health Greene MemorialPHOSPHORUS INORGANICon 01-02-2025 Phosphate [Mass/Vol]3.5 mg/dL2.7 - 4.8 mg/dLUc West Chester HospitalPhosphate SerPl-mCnc on 10-56-3986Vnzdqpnjw [Mass/Vol]3.5 mg/dLNormal2.7-4.8CMari[facility] Hospital on above:Order Comment: Specimen Type: BLOOD SPECIMENOrdering Facility: [facility] Address:[address] [place], [place] [address]Performed By: #### 49098-6, , 2776-07 ####[facility] LABCLIA [id number] [place], [place] [address]Rnyfpjrko [Mass/Vol]on 43-49-6420Ocveipwecizyuc and review of laboratory resultsNormal [facility] Valley HospitalCNPNon 98-51-1825WZQTMeycrfAiwoinyep Clinic ClevelandC-REACTIVE PROTEINon 20-79-3260MMA [Mass/Vol]mg/dLNINF - 0.9 mg/dL [facility] panel Auto (Bld)on 01-60-2387Cuwooqktnvm distribution width (RBC) [Ratio]13.5 %11.5 - 15.0 %[facility] HospitalHematocrit (Bld) [Volume fraction]36 %36.0 - 46.0 %[facility] HospitalHemoglobin (Bld) [Mass/Vol]12.2 g/dL 11.5 - 15.5 g/dLUc West Chester HospitalInterpretation and review of laboratory results NormalOhioHealth Riverside Methodist HospitalH (RBC) [Entitic mass]29.5 pg26.0 - 34.0 pgClevelRegions HospitalHC (RBC) [Mass/Vol]33.9 g/dL30.5 - 36.0 g/dLOhioHealth Riverside Methodist HospitalV (RBC) [Entitic vol]87 fL80.0 - 100.0 fLClevelcritical access hospital ClinicNucleated RBC (Bld) [#/Vol]NINF [facility] HospitalPlatelet mean volume (Bld) [Entitic vol]11 fL9.0 - 12.7 fL [facility] ClinicPlatelets (Bld) [#/Vol]200 10*3/uLUc West Chester HospitalRBC (Bld) [#/Vol]4.14 10*6/uL3.90 - 5.20 m/uLUc West Chester HospitalWBC (Bld) [#/Vol]6.38 10*3/uL [facility]anch[facility] Valley HospitalErythrocyte distribution width (RBC) [Ratio]13.5 %Tifwta48.5-15.0[facility] Memorial HospitalComment on above:Order Comment: Specimen Type: BLOOD SPECIMENOrdering Facility: [facility] Address:[address] [place] [address]Evlxylfug By: #### 69925-1 ####[facility] LABCLIA [id number] [place] [address] [place] OF AMERICAHematocrit (Bld) [Volume fraction]36.0 %Tguslw09.0-46.0[facility] on above:Order Comment: Specimen Type: BLOOD SPECIMENOrdering Facility: [facility] Address:[address] [place], [place] [address]Performed By: #### 43116-8 ####[facility] [place] [id number] [place] [address] OF [facility]AL HOSPITALHemoglobin (Bld) [Mass/Vol]12.2 g/dL Txybqn70.5-15.5CMarietta Memorial Hospital on above:Order Comment: Specimen Type: BLOOD SPECIMENOrdering Facility: [facility] Address:[address] [place], [place] [address]Performed By: #### 05877-2 ####[facility] [id number] [place], [place] [address]MCH (RBC) [Entitic mass]29.5 pgNormal 26.0-34.0[facility] on above:Order Comment: Specimen Type: BLOOD SPECIMENOrdering Facility: [facility] Address:[address] [place], [place] [address]Performed By: #### 24979-9 ####[facility] [id number] [address] OF [facility] GENERAL HOSPITALMCHC (RBC) [Mass/Vol]33.9 g/zQBqzunv19.5-36.0[facility] on above:Order Comment: Specimen Type: BLOOD SPECIMENOrdering Facility: [facility] Address:[address] [place], [place] [address]Performed By: #### 31223-3 ####[facility] [id number] [address] (RBC) [Entitic vol]87.0 vQZqfgnv64.0-100.0[facility] Comment on above:Order Comment: Specimen Type: BLOOD SPECIMENOrdering Facility: [facility] Address:[address] [place] [address] Performed By: #### [id number] ####[facility] [id number] [place] [address] [place] AMERICANucleated RBC (Bld) [#/Vol]10*3/uLNormal<0.01[facility] on above:Order Comment: Specimen Type: BLOOD SPECIMENOrdering Facility: [facility] Address:[address] [place], [place] [address]Performed By: #### [id number]- 2 ####[facility] [id number] [place] [address] [place] AMERICAPlatelet mean volume (Bld) [Entitic vol]11.0 fLNormal9.0-12.7CMari[facility] on above:Order Comment: Specimen Type: BLOOD SPECIMENOrdering Facility: [facility] Address:[address] [place], [place] [address]Performed By: #### [id number]- 2 ####[facility] [id number] [place] [address] [place] AMERICAPlatelets (Bld) [#/Vol]200 10*3/uL [id number] [facility]hes[facility] on above:Order Comment: Specimen Type: BLOOD SPECIMENOrdering Facility: [facility] Address:[address] [place], [place] [address]Performed By: #### 64768-1 ####[facility] [id number] [place] [address] [place] AMERICARBC (Bld) [#/Vol]4.14 10*6/uLNormal3.90-5.20[facility] on above:Order Comment: Specimen Type: BLOOD SPECIMENOrdering Facility: [facility] Address:[address] [place], [place] [id number] By: #### 27147-4 ####[facility] [id number] [place] [address] [place] AMERICAWBC (Bld) [#/Vol]6.38 10*3/uLNormal3.70-11.00[facility] Comment on above:Order Comment: Specimen Type: BLOOD SPECIMENOrdering Facility: [facility] Address:[address] [place] [address] Performed By: #### 81868-5 ####[facility] [id number] [place] [address] [place] OF AMERICACNOVon 20-07-0820TLDSVbpjceSmmczqdgr Unc Health Blue RidgeCNPNon 99-18-4900QSKWGanpso [facility] HospitalCRP SerPl-mCncon 83-95-9319ODI [Mass/Vol]mg/LNormal <0.9ClevelRutherford Regional Health SystemComment on above:Order Comment: Specimen Type: BLOOD SPECIMENOrdering Facility: [facility] Address:[address] [place], [place] [address]Performed By: #### 1988-5 ####[facility] [id number] [place] [address] [place] AMERICACRP [Mass/Vol]on 42-67-1326Npkqezpurwmdms and review of laboratory resultsNormalCleveland Ohio State Health SystemComprehensive metabolic 2000 panelon 29-71-4136Tieyyks [Mass/Vol]4 g/dL3.9 - 4.9 g/dLLarimer ClinicALP [Catalytic activity/Vol]120 U/L34 - 123 U/LCleveland ClinicALT [Catalytic activity/Vol]46 U/LHigh7 - 38 U/LCleveland ClinicAnion gap [Moles/Vol]12 mmol/L8 - 15 mmol/LCleveland ClinicAST [Catalytic activity/Vol]37 U/LHigh13 - 35 U/L [facility] ClinicBilirubin [Mass/Vol]0.5 mg/dL0.2 - 1.3 mg/dLU[facility] Calcium [Mass/Vol]9.1 mg/dL8.5 - 10.2 mg/dLLarimer ClinicChloride [Moles/Vol] 101 mmol/L98 - 107 mmol/LCleveland ClinicCO2 [Moles/Vol]24 mmol/L22 - 30 mmol/L [facility] HospitalCreatinine [Mass/Vol]0.53 mg/dLLow0.58 - 0.96 mg/dLUc West Chester HospitalGFR/1.73 sq M.predicted among non-blacks MDRD (S/P/Bld) [Vol rate/Area]122 mL/min/{1.73_m2}- PINFCCleveland Clinic Children's Hospital for RehabilitationComment on above:Estimated Glomerular Filtration Rate (eGFR) is calculated using the 2020 CKD-EPI creatinine equation. This equation utilizes serum creatinine, sex, and age as parameters. The creatinine assay has traceable calibration to isotope dilution-mass spectrometry. Refer to KDIGO guidelines for clinical interpretation. In patients with unstable renal function, e.g. those with acute kidney injury, the eGFRmay not accurately reflect actual GFR.Glucose [Mass/Vol]104 mg/fRVwkl42 - 99 mg/dL [facility] HospitalComment on above:The Citizen [place] Diabetes Association (ADA) provides guidance for cutoff [...] Standards of Medical Care in Diabetes 2016, [place] Diabetes Association. Diabetes Care. 2016.39(Suppl 1). Interpretation and review of laboratory resultsAbnormalCleveland ClinicPotassium [Moles/Vol]4.5 mmol/L3.7 - 5.1 mmol/LCleveland ClinicProtein [Mass/Vol]7.2 g/dL 6.3 - 8.0 g/dLLarimer ClinicSodium [Moles/Vol]137 mmol/L136 - 144 mmol/L [facility] HospitalUrea nitrogen [Mass/Vol]20 mg/dL7 - 21 mg/dLUc [facility] Hospital Albumin [Mass/Vol]4.0 g/dLNormal3.9-4.9CMarietta Memorial Hospital on above:Order Comment: Specimen Type: BLOOD SPECIMENOrdering Facility: [facility] Address:[address] [place], [place] [address]Performed By: #### 99382-4, 02007-4, 2776- ####[facility] [id number] [place] [address] [place] AMERICAALP [Catalytic activity/Vol]120 U/GYrcsmh22-470GchxlkejgTriHealth [facility] on above:Order Comment: Specimen Type: BLOOD SPECIMENOrdering Facility: [facility] Address:[address] [place], [place] [address]Performed By: #### 00009- 8, 98845-7, 2776- ####[facility] [id number] [place] [address] [place] AMERICAALT [Catalytic activity/Vol]46 U/LHigh7-38[facility] on above:Order Comment: Specimen Type: BLOOD SPECIMENOrdering Facility: [facility] Address:[address] [place], [place] [address]Performed By: #### 07638- 8, 52747-8, 2776- ####[facility] [id number] [place] [address] [place] AMERICAAnion gap [Moles/Vol] 12 mmol/LNormal8-15[facility] on above:Order Comment: Specimen Type: BLOOD SPECIMENOrdering Facility: [facility] Address:[address] [place], [place] [address]Performed By: #### 38952-9, 13256-9, 7-1 ####[facility] [id number] [place] [address] [place] AMERICAAST [Catalytic activity/Vol]37 U/WEftc14-54HxhxwcsxcTriHealth [facility] on above:Order Comment: Specimen Type: BLOOD SPECIMENOrdering Facility: [facility] Address:[address] [place], [place] [address]Performed By: #### 67069-9, 90817-8, 2776-07 ####[facility] [id number] [place] [address] [place] AMERICABilirubin [Mass/Vol]0.5 mg/dL Normal0.2-1.3CMarietta Memorial Hospital on above:Order Comment: Specimen Type: BLOOD SPECIMENOrdering Facility: [facility] Address:[address] [place], [place] [address]Performed By: #### 43356-9, , 2776-07 ####[facility] [id number] [place] [address] [place] AMERICACalcium [Mass/Vol]9.1 mg/dLNormal 8.5-10.2CMarietta Memorial Hospital on above:Order Comment: Specimen Type: BLOOD SPECIMENOrdering Facility: [facility] Address:[address] [place], [place] [address]Performed By: #### 84897-9, , 2776-07 ####[facility] [id number] [place] [address] [place] AMERICAChloride [Moles/Vol]101 mmol/L Pobhik50-828SqtvpuahqTriHealth [facility]hesda North Hospital on above:Order Comment: Specimen Type: BLOOD SPECIMENOrdering Facility: [facility] Address:[address] [place], [place] [address]Performed By: #### 37097-3, , 2776-07 ####[facility] [id number] [place] [address] [place] AMERICACO2 [Moles/Vol]24 mmol/LNormal 22-30[facility] on above:Order Comment: Specimen Type: BLOOD SPECIMENOrdering Facility: [facility] Address:[address] [place], [place] [address]Performed By: #### 39144-8, , 2776-07 ####[facility] [id number] [place] [address] [place] AMERICACreatinine [Mass/Vol]0.53 mg/dLLow0.58-0.96[facility] on above:Order Comment: Specimen Type: BLOOD SPECIMENOrdering Facility: [facility] Address:[address] [place], [place] [address]Performed By: #### 72386-3, , 2776-07 ####[facility] [id number] [place] [address] [place] AMERICACreatinine and Glomerular filtration rate.predicted panel (S/P/Bld)122 mL/min/1.73m???Normal>=60[facility] on above:Order Comment: Specimen Type: BLOOD SPECIMENOrdering Facility: [facility] Address:[address] [place], [place] [address]Result Comment: Estimated Glomerular Filtration Rate (eGFR) is [...] not accurately reflect actual GFR.Performed By: #### 54183-0, , 2776-07 ####[facility] [id number] [place] [address] [place] AMERICAGlucose [Mass/Vol]104 mg/dLHigh 74-99[facility] on above:Order Comment: Specimen Type: BLOOD SPECIMENOrdering Facility: [facility] Address:[address] [place], [place] [address]Result Comment: The [place] Diabetes Association (ADA) provides guidance for cutoff [...] Standards of Medical Care in Diabetes 2016, [place] Diabetes Association. Diabetes Care. 2016.39(Suppl 1).Performed By: #### 90716- 8, 62775-0, 2776-07 ####[facility] [id number] [place] [address] [place] AMERICAPotassium [Moles/Vol] 4.5 mmol/LNormal3.7-5.1CMarietta Memorial Hospital on above:Order Comment: Specimen Type: BLOOD SPECIMENOrdering Facility: [facility] Address:[address] [place], [place] [address]Performed By: #### 98763-6, , 2776-07 ####[facility] [id number] [place] [address] [place] AMERICAProtein [Mass/Vol]7.2 g/dLNormal 6.3-8.0[facility] on above:Order Comment: Specimen Type: BLOOD SPECIMENOrdering Facility: [facility] Address:[address] [place], [place] [address]Performed By: #### 03853-8, 16118-8, 2776-07 ####[facility] [id number] [place] [address] [place] AMERICASodium [Moles/Vol]137 mmol/WVraitv842-679EfrkrycsjTriHealth [facility]hesda North Hospital on above:Order Comment: Specimen Type: BLOOD SPECIMENOrdering Facility: [facility] Address:[address] [place], [place] [address]Performed By: #### 31708-4, 41068-3, 2777-1 ####[facility] [id number] [place] [address] [place] AMERICAUrea nitrogen [Mass/Vol]20 mg/dLNormal7-21[facility] on above:Order Comment: Specimen Type: BLOOD SPECIMENOrdering Facility: [facility] Address:[address] [place], [place] [address]Performed By: #### 27262-8, 32910-5, 2777-1 ####[facility] [id number] [place] [address] [place] AMERICAMAGNESIUMon 99-98-0374Vhrkqtksg [Mass/Vol]2 mg/dL1.7 - 2.3 mg/dL [facility] HospitalMANGANESE BLDon 23-11-8105Mwkuthoyt (Bld) [Mass/Vol]10.3 ug/L Normal4.4-15.2CMarietta Memorial Hospital on above:Order Comment: Specimen Type: BLOOD SPECIMENOrdering Facility: [facility] Address:[address] [place], [place] [address]Result Comment: This test was developed, and its performance characteristics determined by the [facility] Department of Pathology and Laboratory Medicine. It has not been cleared or approved bythe FDA. The [facility] Department of Pathology and Laboratory Medicine is regulated under CLIA as qualified to perform high-complexity testing. This test is used for clinical purposes. It should not be regarded as investigational or for research.Performed By: #### JUAN ####[facility] [id number] [place] [address] [place] Magnesium SerPl-mCncon 53-78-7160Yjundhyjh [Mass/Vol]2.0 mg/dLNormal1.7-2.3 [facility] on above:Order Comment: Specimen Type: BLOOD SPECIMENOrdering Facility: [facility] Address:[address] [place], [place] [address]Performed By: #### 51817-7, 98442-4, 2777-1 ####[facility] [id number] [place] [id number] [place] AMERICANo Panel Informationon 12-89-4762Wqgqtpzlvjlixu and review of laboratory resultsNormalCKettering Health Greene MemorialPHOSPHORUS INORGANICon 79-55-3428Ueyivwfov [Mass/Vol]3.7 mg/dL2.7 - 4.8 mg/dLUc West Chester HospitalPhosphate SerPl-mCncon 85-81-5768Dxdmdmicl [Mass/Vol]3.7 mg/dLNormal2.7-4.8CMarietta Memorial Hospital on above:Order Comment: Specimen Type: BLOOD SPECIMENOrdering Facility: [facility] Address:[address] [place], [place] [address]Performed By: #### 39015-0, 28497-7, 2777-1 ####[facility] [id number] [address] STATES OF AMERICASelenium Bld-[facility] 75-67-6710Vbkunzqi (Bld) [Mass/Vol]107.7 ug/ELqnhzf12.0-234.0[facility] on above:Order Comment: Specimen Type: BLOOD SPECIMENOrdering Facility: [facility] Address:[address] [place], [place] [address]Result Comment: This test was developed, and its performance characteristics determined by the [facility] Department of Pathology and Laboratory Medicine. It has not been cleared or approved bythe FDA. The [facility] Department of Pathology and Laboratory Medicine is regulated under CLIA as qualified to perform high- complexity testing. This test is used for clinical purposes. It should not be regarded as investigational or for research.Performed By: #### 5722-4 ####[facility]ITALCL[facility] [id number] [place] [address] [place] AMERICAUS ARM VEIN DVT MARKO VAS LABon 61-55-5085VF ARM VEIN DVT MARKO VAS LABNormalCUniversity Hospitals Health SystemUS Upper extremity veins - bilateralon 12-29-2024 Non-Invasive Vascular Laboratory [facility] J35 Upper Extremity Venous Duplex Bilateral/Complete [...] See Link below for ImageHEART AND VASCULAR INSTITUTEUc West Chester HospitalCNNURSEon 30-88-9206OLPUKHVBrnajpOzumanulw Clinic ClevelandCNOV 88-30-8948XUUMMsmjzs [facility] EastalCleveland Unc Health Blue RidgeCNCOon 12-14-2024 CNCOLetter TextNormalCleveland [facility] Health Blue RidgeCoding Queryon 72-76-1128Jcabxo Ap[id number]#1.00OTGTKettering Health Behavioral Medical Center CNPNon 71-24-6224CWNJMpjhkoFxxzunbht Clinic ClevelandCNPNon 16-38-8736MGOJDddjpo [facility]25([place])D3 SerPl-mCncon 489291-elybtebtpbfevq D3 [Mass/Vol]32.2 ng/zYLagcsg18.0-80.0[facility] on above: Order Comment: Specimen Type: BLOOD SPECIMENOrdering Facility: [facility] Address:[address] [place], [place] [address]Result Comment: Classification of 25 [place] Vitamin D status:Deficiency/Insufficiency: < or = 30 ng/ml.Sufficiency/Optimal Levels: 31-80 ng/mLToxicity: > 100 ng/mL.Test performed by chemiluminescent immunoassay.Performed By: #### 1989-3 ####[facility] LABBRATTLEB[facility] [id number] [place] [address] [place] [facility] HOSPITALBD DXA - AXIAL SKELETONon 10-89-9256ZV DXA - AXIAL SKELETONNormalCUniversity Hospitals Health SystemBD DXA TRABECLR BONE SCORE (TBS)on 86-29-2834SJ DXA TRABECLR BONE SCORE (TBS)NormalDunlap Memorial HospitalBLOOD TB SCREENon 11-07-2024M. tuberculosis tuberculin stim IFN- g Ql (Bld)NegativeNormalClevelSycamore Medical Center on above:Order Comment: Specimen Type: BLOOD SPECIMENOrdering Facility: [facility] Address:[address] [place], [place] [address]Performed By: #### INFTBP ####[facility] LABIA [id number] [place] [address] [place] AMERICAMITOGEN MINUS NIL>9.95Normal >=0.50[facility] on above:Order Comment: Specimen Type: BLOOD SPECIMENOrdering Facility: [facility] Address:[address] [place], [place] [address]Performed By: #### INFTBP ####[facility] LABCLIA [id number] [place] [address] [place] AMERICATB GAMMA INTERPRETATIONNormalCMarietta Memorial Hospital on above:Order Comment: Specimen Type: BLOOD SPECIMENOrdering Facility: [facility] Address:[address] [place] [address] Performed By: #### INFTBP ####[facility] LABCLIA [id number] [place] [address] [place] TB NIL0.05 IU/mLNormal<=8.00[facility] HospitalComment on above:Order Comment: Specimen Type: BLOOD SPECIMENOrdering Facility: [facility] Address:[address] [place], [place] [address]Performed By: #### INFTBP ####[facility] LABCLIA [id number] [place] [address] [place] AMERICATB1 AG MINUS NIL0.05 IU/mLNormal <0.35[facility] on above:Order Comment: Specimen Type: BLOOD SPECIMENOrdering Facility: [facility] Address:[address] [place], [place] [address]Performed By: #### INFTBP ####[facility] LABIA [id number] [place] [address] [place] AMERICATB2 AG MINUS NIL0.02 IU/mLNormal<0.35[facility] Comment on above:Order Comment: Specimen Type: BLOOD SPECIMENOrdering Facility: [facility] Address:[address] [place] [address] Performed By: #### INFTBP ####[facility] LABCLIA [id number] [place] [address] [place] CBC W Auto Differential panel (Bld)on 51-16-3868Curnqhrsc (Bld) [#/Vol]0 10*3/uL NINSouthview Medical CenterBasophils/100 WBC (Bld)0 %[facility] HospitalDifferential cell count method Nom (Bld)ManualCleOhio State University Wexner Medical CenterEosinophils (Bld) [#/Vol]0.08 10*3/uLNINFUc West Chester HospitalEosinophils/100 WBC (Bld)2 %[facility] Erythrocyte distribution width (RBC) [Ratio]14.3 %11.5 - 15.0 %[facility] Hematocrit (Bld) [Volume fraction]35.4 %Low36.0 - 46.0 %[facility] Hemoglobin (Bld) [Mass/Vol]11.6 g/dL11.5 - 15.5 g/dLUc West Chester Hospital Interpretation and review of laboratory resultsAbnormalCCleveland Clinic [facility] Lymphocytes (Bld) [#/Vol]1.45 10*3/uLUc West Chester HospitalLymphocytes/100 WBC (Bld)35 %[facility] HospitalMCH (RBC) [Entitic mass]28.6 pg26.0 - 34.0 pgCCleveland Clinic Children's Hospital for Rehabilitation MCHC (RBC) [Mass/Vol]32.8 g/dL30.5 - 36.0 g/dLUc West Chester HospitalMCV (RBC) [Entitic vol]87.4 fL80.0 - 100.0 fLCCleveland Clinic Children's Hospital for RehabilitationMonocytes (Bld) [#/Vol]0.17 10*3/uL NINSouthview Medical CenterMonocytes/100 WBC (Bld)4 %[facility] HospitalNeutrophils (Bld) [#/Vol]2.44 10*3/uLUc West Chester HospitalNeutrophils/100 WBC (Bld)59 %[facility] Nucleated RBC (Bld) [#/Vol]NINSouthview Medical CenterNucleated RBC/100 WBC (Bld) [Ratio]0 %/100 WBCUc West Chester HospitalOvalocytes LM Ql (Bld)FewUc [facility] Hospital Platelet mean volume (Bld) [Entitic vol]10.7 fL9.0 - 12.7 fLCCleveland Clinic Children's Hospital for Rehabilitation Platelets (Bld) [#/Vol]203 10*3/uLUc West Chester HospitalPlatelets Estimate (Bld) [#/Vol]AdequateCleOhio State University Wexner Medical CenterRBC (Bld) [#/Vol]4.05 10*6/uL3.90 - 5.20 m/uL [facility] HospitalRed Cell MorphReviewed: see results of individual morphologies [facility] HospitalWBC (Bld) [#/Vol]4.14 10*3/uLUc West Chester HospitalThis is an appended report. These results have been appended to a previously verified report. [facility] Valley HospitalBasophils (Bld) [#/Vol]0.00 10*3/uLNormal<0.11 [facility] on above:Order Comment: Specimen Type: BLOOD SPECIMENOrdering Facility: [facility] Address:[address] [place], [place] [address]Performed By: #### 39870-6 ####[facility] [id number] [place] [address] [place] AMERICABasophils/100 WBC (Bld)0.0 %NormalTriHealth Bethesda North Hospital on above:Order Comment: Specimen Type: BLOOD SPECIMENOrdering Facility: [facility] Address:[address] [place], [place] [address]Performed By: #### 71335-8 ####[facility] [id number] [place] [address] [place] AMERICADifferential cell count method Nom (Bld)ManualNormalCMarietta Memorial Hospital on above:Order Comment: Specimen Type: BLOOD SPECIMENOrdering Facility: [facility] Address:[address] [place], [place] [address]Performed By: #### 89017-1 ####[facility] [id number] [place] [address] [place] AMERICAEosinophils (Bld) [#/Vol]0.08 10*3/uL Normal<0.46[facility] on above:Order Comment: Specimen Type: BLOOD SPECIMENOrdering Facility: [facility] Address:[address] [place], [place] [address]Performed By: #### 73643-2 ####[facility] [id number] [place] [address] [place] AMERICAEosinophils/100 WBC (Bld)2.0 %NormalDunlap Memorial Hospital Comment on above:Order Comment: Specimen Type: BLOOD SPECIMENOrdering Facility: [facility] Address:[address] [place] [address] Performed By: #### 79635-2 ####[facility] [id number] [place] [address] [place] AMERICAErythrocyte distribution width (RBC) [Ratio]14.3 %Mihqyk47.5-15.0[facility] Comment on above:Order Comment: Specimen Type: BLOOD SPECIMENOrdering Facility: [facility] Address:[address] [place] [address] Performed By: #### 10100-4 ####[facility] [id number] [place] [address] [place] AMERICAHematocrit (Bld) [Volume fraction]35.4 %Low36.0-46.0[facility] HospitalComment on above:Order Comment: Specimen Type: BLOOD SPECIMENOrdering Facility: [facility] Address:[address] [place], [place] [address]Performed By: #### 63418-9 ####[facility] [id number] [place] [address] [place] AMERICAHemoglobin (Bld) [Mass/Vol]11.6 g/cLSxshel62.5-15.5CUniversity Hospitals Health SystemComment on above:Order Comment: Specimen Type: BLOOD SPECIMENOrdering Facility: [facility] Address:[address] [place], [place] [address]Performed By: #### 82470-3 ####[facility] [id number] [place] [address] [place] AMERICALymphocytes (Bld) [#/Vol]1.45 10*3/uL Normal1.00-4.00[facility] on above:Order Comment: Specimen Type: BLOOD SPECIMENOrdering Facility: [facility] Address:[address] [place], [place] [address]Performed By: #### 94859-2 ####[facility] [id number] [address]ETLymphocytes/100 WBC (Bld)35.0 %Normal [facility] on above:Order Comment: Specimen Type: BLOOD SPECIMENOrdering Facility: [facility] Address:[address] [place], [place] [address]Performed By: #### 63558-9 ####[facility] [id number] [place] [address] (RBC) [Entitic mass]28.6 ipJoeqqs69.0-34.0[facility] Comment on above:Order Comment: Specimen Type: BLOOD SPECIMENOrdering Facility: [facility] Address:[address] [place] [address] Performed By: #### 31439-2 ####[facility] [id number] [place], [place] [address]HC (RBC) [Mass/Vol]32.8 g/yJBeclyz11.5-36.0[facility] on above: Order Comment: Specimen Type: BLOOD SPECIMENOrdering Facility: [facility] Address:[address] [place], [place] [address]Performed By: #### 03890- 8 ####[facility] [id number] [place] [address] (RBC) [Entitic vol]87.4 fLNormal 80.0-100.0[facility] on above:Order Comment: Specimen Type: BLOOD SPECIMENOrdering Facility: [facility] Address:[address] [place], [place] [address]Performed By: #### 47066-9 ####[facility] [id number] [place] [address] [place] AMERICAMonocytes (Bld) [#/Vol]0.17 10*3/uLNormal<0.87[facility] on above:Order Comment: Specimen Type: BLOOD SPECIMENOrdering Facility: [facility] Address:[address] [place], [place] [address]Performed By: #### 61800-6 ####[facility] [id number] [place] [address] [place] AMERICAMonocytes/100 WBC (Bld)4.0 %NormalTriHealth Bethesda North Hospital on above:Order Comment: Specimen Type: BLOOD SPECIMENOrdering Facility: [facility] Address:[address] [place], [place] [address]Performed By: #### 32201-1 ####[facility] [id number] [place] [address] [place] AMERICANeutrophils (Bld) [#/Vol]2.44 10*3/uLNormal1.45-7.50[facility] on above:Order Comment: Specimen Type: BLOOD SPECIMENOrdering Facility: [facility] Address:[address] [place], [place] [address]Performed By: #### 12484-7 ####[facility] [id number] [place] [address] [place] AMERICANeutrophils/100 WBC (Bld)59.0 %Normal [facility] on above:Order Comment: Specimen Type: BLOOD SPECIMENOrdering Facility: [facility] Address:[address] [place], [place] [address]Performed By: #### [id number] ####[facility] [id number] [place] [address] [place] AMERICANucleated RBC (Bld) [#/Vol]10*3/uLNormal<0.01[facility] Comment on above:Order Comment: Specimen Type: BLOOD SPECIMENOrdering Facility: [facility] Address:[address] [place] [address] Performed By: #### [id number] ####[facility] [place] [id number] [place] [address] [place] OF AMERICANucleated RBC/100 WBC (Bld) [Ratio]0.0 /100 WBCNormalCUniversity Hospitals Health SystemComment on above:Order Comment: Specimen Type: BLOOD SPECIMENOrdering Facility: [facility] Address:[address] [place], [place] [address]Performed By: #### 55138-2 ####[facility] [id number] [place] [address] [place] OF AMERICAOvalocytes LM Ql (Bld)FewNormal [facility]lap Memorial HospitalComment on above:Order Comment: Specimen Type: BLOOD SPECIMENOrdering Facility: [facility] Address:[address] [place], [place] [address]Performed By: #### 90769-3 ####[facility] [id number] [place] [address] [place] OF AMERICAPlatelet mean volume (Bld) [Entitic vol]10.7 fLNormal9.0-12.7CUniversity Hospitals Health SystemComtrinity health livingston hospital on above:Order Comment: Specimen Type: BLOOD SPECIMENOrdering Facility: [facility] Address:[address] [place], [place] [address]Performed By: #### 34221-4 ####[facility] [id number] [place] [address] [place] AMERICAPlatelets (Bld) [#/Vol]203 10*3/yZJbsagn464-418SleaerqfaDunlap Memorial Hospital Comment on above:Order Comment: Specimen Type: BLOOD SPECIMENOrdering Facility: [facility] Address:[address] [place] [address] Performed By: #### 06302-9 ####[facility] [id number] [address] STREETPlatelets Estimate (Bld) [#/Vol]AdequateNormalCMarietta Memorial Hospital on above: Order Comment: Specimen Type: BLOOD SPECIMENOrdering Facility: [facility] Address:[address] [place], [place] [address]Performed By: #### 39100- 8 ####[facility] [id number] [place], [place] [address]RB (d) [#/Vol]4.05 10*6/uLNormal 3.90-5.20[facility] on above:Order Comment: Specimen Type: BLOOD SPECIMENOrdering Facility: [facility] Address:[address] [place], [place] [address]Performed By: #### 52765-2 ####[facility] [id number] [address]ETRED CELL MORPHReviewed: see results of individual morphologies NormalTriHealth Bethesda North Hospital on above:Order Comment: Specimen Type: BLOOD SPECIMENOrdering Facility: [facility] Address:[address] [place], [place] [address]Performed By: #### 95706-2 ####[facility] [id number] [address]ETW (Bld) [#/Vol]4.14 10*3/uLNormal3.70-11.00[facility] on above:Order Comment: Specimen Type: BLOOD SPECIMENOrdering Facility: [facility] Address:[address] [place], [place] [address]Performed By: #### 52148-5 ####[facility] [id number] [place], [place] [address]K P38IGWPZKXHPIMPERIAL, [place] [address] [place] AMERICACNNURSEon 32-83-9097BAGSMQJFgalrdLolciovwb [facility] ClevelandCNOVon 60-66-0819XGNTRueqceToitfgxzj Unc Health Blue RidgeCNPTOUTREACHon 11-07-2024 CNPTOUTREACHNormalCUniversity Hospitals Health SystemCobalamin (Vitamin B12) [Mass/Vol]on 65-87-8398Hqfviabxfajaix and review of laboratory resultsNoGerman HospitalComprehensive metabolic 2000 panelon 80-56-2404Ygkobtm [Mass/Vol]4.2 g/dL3.9 - 4.9 g/dLLarimer ClinicALP [Catalytic activity/Vol]87 U/L34 - 123 U/LCleveland ClinicALT [Catalytic activity/Vol]21 U/L7 - 38 U/L [facility] HospitalAnion gap [Moles/Vol]11 mmol/L8 - 15 mmol/LCleveland ClinicAST [Catalytic activity/Vol]20 U/L13 - 35 U/LCleveland ClinicBilirubin [Mass/Vol]0.4 mg/dL0.2 - 1.3 mg/dLLarimer ClinicCalcium [Mass/Vol]9.1 mg/dL8.5 - 10.2 mg/dL [facility] ClinicChloride [Moles/Vol]102 mmol/L98 - 107 mmol/LCleveland ClinicCO2 [Moles/Vol]25 mmol/L22 - 30 mmol/LCleveland ClinicCreatinine [Mass/Vol]0.61 mg/dL0.58 - 0.96 mg/dLUc West Chester HospitalGFR/1.73 sq M.predicted among non-blacks MDRD (S/P/Bld) [Vol [...] not accurately reflect actual GFR.Glucose [Mass/Vol] 100 mg/bIKmcu22 - 99 mg/dLPremier Health Miami Valley Hospital on above:The Citizen Of [place] Diabetes Association (ADA) provides guidance for cutoff [...] Standards of Medical Care in Diabetes 2016, Citizen [place] Diabetes Association. Diabetes Care. 2016.39(Suppl 1). Interpretation and review of laboratory resultsAbnormalCleveland ClinicPotassium [Moles/Vol]4.5 mmol/L3.7 - 5.1 mmol/LCmercy health west hospital ClinicProtein [Mass/Vol]7.4 g/dL 6.3 - 8.0 g/dLFairfield Medical Centerodium [Moles/Vol]138 mmol/L136 - 144 mmol/L [facility] HospitalUrea nitrogen [Mass/Vol]25 mg/dLHigh7 - 21 mg/dLDunlap Memorial Hospital ClinicAlbumin [Mass/Vol]4.2 g/dLNormal3.9-4.9CUniversity Hospitals Health SystemComment on above:Order Comment: Specimen Type: BLOOD SPECIMENOrdering Facility: [facility] Address:[address] [place], [place] [address]Performed By: #### 64627-7 ####[facility] [id number] [place] [address] [place] AMERICAALP [Catalytic activity/Vol]87 U/RJjoscm84-748VrzfbxbtdDunlap Memorial Hospital Comment on above:Order Comment: Specimen Type: BLOOD SPECIMENOrdering Facility: [facility] Address:[address] [place] [address] Performed By: #### 63975-6 ####[facility] [id number] [place] [address] [place] AMERICAALT [Catalytic activity/Vol]21 U/LNormal7-38[facility] on above:Order Comment: Specimen Type: BLOOD SPECIMENOrdering Facility: [facility] Address:[address] [place], [place] [address]Performed By: #### 16544- 8 ####[facility] [id number] [place] [address] [place] AMERICAAnion gap [Moles/Vol]11 mmol/LNormal 8-15Dunlap Memorial HospitalComment on above:Order Comment: Specimen Type: BLOOD SPECIMENOrdering Facility: [facility] Address:[address] [place], [place] [address]Performed By: #### 22589-2 ####[facility] [id number] [place] [address] [place] AMERICAAST [Catalytic activity/Vol]20 U/GPbldfl63-88OhoosrcafTriHealth Bethesda North Hospital on above:Order Comment: Specimen Type: BLOOD SPECIMENOrdering Facility: [facility] Address:[address] [place], [place] [address]Performed By: #### 31368-1 ####[facility] [id number] [place] [address] [place] AMERICABilirubin [Mass/Vol]0.4 mg/dLNormal0.2-1.3CUniversity Hospitals Health System Comment on above:Order Comment: Specimen Type: BLOOD SPECIMENOrdering Facility: [facility] Address:[address] [place] [address] Performed By: #### 60454-9 ####[facility] [id number] [place] [address] [place] AMERICACalcium [Mass/Vol]9.1 mg/dLNormal8.5-10.2CMarietta Memorial Hospital on above: Order Comment: Specimen Type: BLOOD SPECIMENOrdering Facility: [facility] Address:[address] [place], [place] [address]Performed By: #### 02015- 8 ####[facility] [id number] [place] [address] [place] AMERICAChloride [Moles/Vol]102 mmol/LNormal 98-107[facility] on above:Order Comment: Specimen Type: BLOOD SPECIMENOrdering Facility: [facility] Address:[address] [place], [place] [address]Performed By: #### 22419-0 ####[facility] [id number] [place] [address] [place] AMERICACO2 [Moles/Vol]25 mmol/QEadtfu58-99FhbrvnjmrTriHealth [facility]hes[facility] on above:Order Comment: Specimen Type: BLOOD SPECIMENOrdering Facility: [facility] Address:[address] [place] [address] Performed By: #### 71690-1 ####[facility] [id number] [place] [address] [place] AMERICACreatinine [Mass/Vol]0.61 mg/dLNormal0.58-0.96[facility] on above: Order Comment: Specimen Type: BLOOD SPECIMENOrdering Facility: [facility] Address:[address] [place], [place] [address]Performed By: #### 14307- 8 ####[facility] [id number] [place] [address] [place] AMERICACreatinine and Glomerular filtration rate.predicted panel (S/P/Bld)118 mL/min/1.73m???Normal>=60[facility] on above:Order Comment: Specimen Type: BLOOD SPECIMENOrdering Facility: [facility] Address:[address] [place], [place] [address]Result Comment: Estimated Glomerular Filtration Rate (eGFR) is [...] accurately reflect actual GFR. Performed By: #### 91856-6 ####[facility] [id number] [place] [address] [place] AMERICAGlucose [Mass/Vol]100 mg/kBOeta82-55WtaasezwhDunlap Memorial HospitalComment on above:Order Comment: Specimen Type: BLOOD SPECIMENOrdering Facility: [facility] Address:[address] [place], [place] [address]Result Comment: The Citizen [place] Diabetes Association (ADA) provides guidance for cutoff [...] Standards of Medical Care in Diabetes 2016, [place] Diabetes Association. Diabetes Care. 2016.39(Suppl 1).Performed By: #### 29964-5 ####[facility] [id number] [place] [address] [place] AMERICAPotassium [Moles/Vol]4.5 mmol/LNormal3.7-5.1CUniversity Hospitals Health System Comment on above:Order Comment: Specimen Type: BLOOD SPECIMENOrdering Facility: [facility] Address:[address] [id number] Performed By: #### 35805-6 ####[facility] [id number] [place] [address] [place] AMERICAProtein [Mass/Vol]7.4 g/dLNormal6.3-8.0Dunlap Memorial HospitalComment on above:Order Comment: Specimen Type: BLOOD SPECIMENOrdering Facility: [facility] Address:[address] [place], [place] [address]Performed By: #### 44959- 8 ####[facility] [id number] [place] [address] [place] [facility] HOSPITALSodium [Moles/Vol]138 mmol/LNormal 136-144Dunlap Memorial HospitalComment on above:Order Comment: Specimen Type: BLOOD SPECIMENOrdering Facility: [facility] Address:[address] [place], [place] [address]Performed By: #### 14255-0 ####[facility] [id number] [place] [address] [place] AMERICAUrea nitrogen [Mass/Vol]25 mg/dLHigh7-21[facility] Comment on above:Order Comment: Specimen Type: BLOOD SPECIMENOrdering Facility: [facility] Address:[address] [place] [address] Performed By: #### 35190-1 ####[facility] [id number] [place] [address] [place] OF AMERICADXA Femur [T- score] [...] Gender: Female SCANNER INFORMATION: DXA Model: A21 CogniK A 595393 Date Scanned: 11/07/2024 11:15 AM CLINICAL HISTORY: [...] had a previous bone density in the [facility] or the previous bone density was performed on a different DXA machine (new, updated model or different location) within the [facility]. VERTEBRAL FRACTURE ASSESSMENT Not performed. TRABECULAR BONE ASSESSMENT TBS score: 1.214 Bone micro-architecture: Degraded DIVISION OF RADIOLOGYProvider, [facility] [place] - 11/07/2024 * * *Final Report* * [...] Gender: Female SCANNER INFORMATION: DXA Model: A21 CogniK A [id number] Date Scanned: 11/07/2024 11:15 AM CLINICAL HISTORY: [...] had a previous bone density in the [facility] or the previous bone density was performed on a different DXA machine (new, updated model or different location) within the [facility]. VERTEBRAL FRACTURE ASSESSMENT Not performed. TRABECULAR [...] FOR MORE INFORMATION ABOUT DIAGNOSIS AND TREATMENT: [facility] Center for Osteoporosis and Metabolic Bone Disease:? www.ccf.org/arthritis/osteo National Osteoporosis Foundation:? www.nof.org International Society of Clinical Densitometry www.iscd.org Reducing Machine Operator: doroteo Transcribe Date/Time: Nov 07 2024 11:19A Dictated by : ASHLEY VEGA MD This examination was interpreted and the report reviewed and electronically signed by: ASHLEY VEGA MD on Nov 07 2024 9:08PM [facility] Skeletal system.axial Views for bone densityon 11-07-2024* * *Final Report* * * DATE OF EXAM: Nov 07 2024 11:15AM [facility] 0804 - BD DXA - AXIAL SKELETON / PROCEDURE REASON: Crohn's disease of small and large intestines with complication (HCC) * * * * Physician Interpretation * * * * EXAMINATION: DXA BONE DENSITOMETRY BD DXA TRABECLR BONE SCORE (TBS), BD DXA - AXIAL SKELETON PATIENT DEMOGRAPHICS: Age: 39 years, Gender: Female SCANNER INFORMATION: DXA Model: A21 CogniK A [id number] Date Scanned: 11/07/2024 11:15 AM CLINICAL HISTORY: [...] had a previous bone density in the [facility] or the previous bone density was performed on a different DXA machine (new, updated model or different location) within the [facility]. VERTEBRAL FRACTURE ASSESSMENT Not performed. TRABECULAR BONE ASSESSMENT TBS score: 1.214 Bone micro-architecture: Degraded DIVISION OF RADIOLOGYProvider, [facility] [place] - 11/07/2024 * * *Final Report* * * DATE OF EXAM: Nov 07 2024 11:15AM [facility] 0804 - BD DXA - AXIAL SKELETON / PROCEDURE REASON: Crohn's disease of small and large intestines with complication (HCC) * * * * Physician Interpretation * * * * EXAMINATION: DXA BONE DENSITOMETRY BD DXA TRABECLR BONE SCORE (TBS), BD DXA - AXIAL SKELETON PATIENT DEMOGRAPHICS: Age: 39 years, Gender: Female SCANNER INFORMATION: DXA Model: A21 CogniK A 118627 Date Scanned: 11/07/2024 11:15 AM CLINICAL HISTORY: [...] had a previous bone density in the [facility] or the previous bone density was performed on a different DXA machine (new, updated model or different location) within the [facility]. VERTEBRAL FRACTURE ASSESSMENT Not performed. TRABECULAR [...] FOR MORE INFORMATION ABOUT DIAGNOSIS AND TREATMENT: [facility] Center for Osteoporosis and Metabolic Bone Disease:? www.ccf.org/arthritis/osteo National Osteoporosis Foundation:? www.nof.org International Society of Clinical Densitometry www.iscd.org Reducing Machine Operator: sens Transcribe Date/Time: Nov 07 2024 11:19A Dictated by : ASHLEY VEGA MD This examination was interpreted and the report reviewed and electronically signed by: ASHLEY VEGA MD on Nov 07 2024 9:08PM EST [facility] HospitalHBV core Ab Ser Qlon 65-97-9656JPH core Ab Ql (S)NegativeNormal NegativeTriHealth Bethesda North Hospital on above:Order Comment: Specimen Type: BLOOD SPECIMENOrdering Facility: [facility] Address:[address] [place], [place] [address]Result Comment: No evidence of current or past infection with Hepatitis B virus. Should recent infection be suspected, repeat testing may be considered 3-4 weeks after this draw.Performed By: #### 5195-3, 32932-2, 80859-2 ####[facility] LABCLIA [id number] OF [facility]AL HOSPITALHBV surface Ab Ql (S)on 59-38-0513YMM surface Ab Qn (S)<8.00NormalCMarietta Memorial Hospital on above:Order Comment: Specimen Type: BLOOD SPECIMENOrdering Facility: [facility] Address:[address] [place], [place] [address]Result Comment: <8 mIU/mL: No serological evidence of immunity to Hepatitis B Virus.>/= 8 to <12 mIU/mL: No serological evidence of immunity to Hepatitis B Virus.>/= 12 mIU/mL: Consistentwith serological evidence of immunity to Hepatitis B Virus.Performed By: #### 5195-3, 78463-6, 32905-9 ####[facility] [id number] STATES OF [facility] HBV surface Ab Ser Qlon 31-95-5731SDQ surface Ab Ql (S)NegativeNormalCMarietta Memorial Hospital on above:Order Comment: Specimen Type: BLOOD SPECIMENOrdering Facility: [facility] Address:[address] [place], [place] [address]Result Comment: No serological evidence of immunity to Hepatitis B Virus.Performed By: #### 5195-3, 81037-9, 24243-2 ####[facility] [id number] STREETHBV surface Ag Ser Qlon 39-52-1205YRC surface Ag Ql (S)NegativeNormalNegativeTriHealth [facility] on above:Order Comment: Specimen Type: BLOOD SPECIMENOrdering Facility: [facility] Address:[address] [place], [place] [address]Performed By: #### 5195- 3, 94463-4, 80519-0 ####[facility] [id number] [address] OF [facility] HOSPITALLaboratory - Hematology and Cell countson 15-85-2855Ywfapixhqg Ql (U)Trace-intactAbnormal NegativeUc West Chester HospitalLaboratory - Urinalysison 22-04-1067Vphgsxk Ql (U) NegativeNegative mg/dLUc West Chester HospitalNo Panel Informationon 11-07-2024 IMPRESSION: THE LOWEST Z-SCORE [...] FOR MORE INFORMATION ABOUT DIAGNOSIS AND TREATMENT: [facility] Center for Osteoporosis and Metabolic Bone Disease:? www.ccf.org/arthritis/osteo National Osteoporosis Foundation:? www.nof.org International Society of Clinical Densitometry www.iscd.org Reducing Machine Operator: doroteo Transcribe Date/Time: Nov 07 2024 11:19A Dictated by : ASHLEY VEGA MD This examination was interpreted and the report reviewed and electronically signed by: ASHLEY VGEA MD on Nov 07 2024 9:08PM [facility] DIVISION OF RADIOLOGYRadiology Study observation (narrative)[facility] BILIRUBIN UA (POCT)NegativeNegativeUc West Chester HospitalCLARITY UA (POCT)Slightly CloudyCleOhio State University Wexner Medical CenterCOLOR UA (POCT)Light yellowUc West Chester HospitalGLUCOSE UA (POCT)NegativeNegative mg/dLUc West Chester HospitalInterpretation and review of laboratory resultsAbnormalCleveland ClinicKETONE UA (POCT)NegativeNegative mg/dL [facility] HospitalLEUKOCYTES UA (POCT)NegativeNegativeUc West Chester HospitalNITRITE UA (POCT)NegativeNegativeUc West Chester HospitalPH UA (POCT)74.5 - 8.0[facility] SPECIFIC GRAVITY UA (POCT)1.021.005 - 1.030[facility] HospitalUROBILINOGEN UA (POCT)0.2Normal E.U./dLUc West Chester HospitalLocation:[facility], [address] [place] [address], [address] [place] [address] POINT OF CAREUc West Chester HospitalNo Panel InformationOrdered By: [facility] Provider on 39-07-2066Oglpxpxgr ClinicTPMT PHENOTYPE/ENZYME ACTIVITYon 64-42-9173MALA SFZRWBVS48.2 U/mLLow24.0-44.0 Dunlap Memorial HospitalComment on above:Order Comment: Specimen Type: BLOOD SPECIMENOrdering Facility: [facility] Address:[address] [place], [place] [address]Result Comment: INTERPRETIVE INFORMATION: Thiopurine Methyltransferase, RBCNormal TPMT [...] was developed and its performance characteristicsdetermined by [facility]. It has not been cleared orapproved by the [place] Food and Drug Administration. This test waspe rformed in a CLIA certified laboratory and is intended forclinical purposes.Performed By: [facility] [place], [place] [address]Xtowvcligr Director: Hugo Ramsey MD, PhDCLIA Number: [id number] Performed By: #### PPRENZ ####[facility] HOSPITALIA [id number] [place], [place] [address]XYFCTKJ B12on 31-93-1482Cnyxudibb (Vitamin B12) [Mass/Vol]423 pg/mL232 - 1245 pg/mLCleveland Northland Medical CenterVit B12 SerPl-mCncon 85-88-9707Rmacrhsyo (Vitamin B12) [Mass/Vol]423 pg/vYGfyitk795-1118Hjgumtryg [facility]c Health Blue RidgeComment on above:Order Comment: Specimen Type: BLOOD SPECIMENOrdering Facility: [facility] Address:[address] [place], [place] [address]Performed By: #### 2132-9 ####[facility] LABCLIA [id number] [place] [address] [place] AMERICABacteria Bld Culton 15-21-3572Jexjcpvw identified Cx Nom (Bld)CULTURE, BLOOD: No growth 5 days GRAM STAIN: This blood culture had less than the recommended 8 ml per bottle, which could decrease the sensitivity of the test.NormalDunlap Memorial HospitalComment on above:Performed By: #### 600-7 ####[facility] LABCLIA [id number] [facility] [address] [place] [address] [place] Bacteria identified Cx Nom (Bld)CULTURE, BLOOD: No growth 5 daysNormalCUniversity Hospitals Health SystemComtrinity health livingston hospital on above:Performed By: #### 600-7 ####[facility] LABCLIA [id number] [facility] [address] [place] [address] [place] [facility] W Auto Differential panel (Bld)on 69-42-0288Kjautdvrw (Bld) [#/Vol]0.06 10*3/uLNormal <0.11ClevelDuke University Hospitalment on above:Order Comment: Specimen Type: BLOOD SPECIMENOrdering Facility: [facility] Address:[address] [place], [place] [address]Performed By: #### 79883-7 ####[facility] LABCLIA [id number] [address], [place] [address] [place] AMERICABasophils/100 WBC (Bld)0.6 %NormalDunlap Memorial Hospital Comment on above:Order Comment: Specimen Type: BLOOD SPECIMENOrdering Facility: [facility] Address:[address] [place] [address] Performed By: #### 78364-6 ####[facility] LABCLIA [id number] [address] [place] [address] [place] Differential cell count method Nom (Bld)AutoNormalClevelRutherford Regional Health System Comment on above:Order Comment: Specimen Type: BLOOD SPECIMENOrdering Facility: [facility] Address:[address] [place] [address] Performed By: #### 29213-4 ####[facility] LABCLIA [id number] [facility] [place] [address] [place] Eosinophils (Bld) [#/Vol]0.39 10*3/uLNormal<0.46[facility] Comment on above:Order Comment: Specimen Type: BLOOD SPECIMENOrdering Facility: [facility] Address:[address] [place] [address] Performed By: #### 28586-6 ####[facility] LABCLIA [id number] [place] [address] [place] Eosinophils/100 WBC (Bld)3.6 %NormalTriHealth Bethesda North Hospital on above: Order Comment: Specimen Type: BLOOD SPECIMENOrdering Facility: [facility] Address:[address] [place], [place] [address]Performed By: #### 13510- 8 ####[facility] LABIA [id number] [place] [address] [place] AMERICAErythrocyte distribution width (RBC) [Ratio]13.8 %Rsyapb03.5-15.0[facility] on above: Order Comment: Specimen Type: BLOOD SPECIMENOrdering Facility: [facility] Address:[address] [place], [place] [address]Performed By: #### 85861- 8 ####[facility] LABCLIA [id number] [place] [address] [place] AMERICAHematocrit (Bld) [Volume fraction]36.7 %Loypyc59.0-46.0[facility] on above:Order Comment: Specimen Type: BLOOD SPECIMENOrdering Facility: [facility] Address:[address] [place], [place] [address]Performed By: #### 21059- 8 ####[facility] LABCLIA [id number] [place] [address] [place] AMERICAHemoglobin (Bld) [Mass/Vol]12.1 g/tARsymqy46.5-15.5CMarietta Memorial Hospital on above:Order Comment: Specimen Type: BLOOD SPECIMENOrdering Facility: [facility] Address:[address] [place], [place] [address]Performed By: #### 81394-7 ####[facility] LABCLIA [id number] [place] [address] [place] AMERICAImmature granulocytes (Bld) [#/Vol]10*3/uLNormal<0.10[facility] on above:Order Comment: Specimen Type: BLOOD SPECIMENOrdering Facility: [facility] Address:[address] [place], [place] [address]Performed By: #### 71160- 8 ####[facility] LABCLIA [id number] [place] [address] [place] AMERICAImmature granulocytes/100 WBC (Bld)0.2 %NormalTriHealth Bethesda North Hospital on above:Order Comment: Specimen Type: BLOOD SPECIMENOrdering Facility: [facility] HOSPITAL Address:[address] [place], [place] [address]Performed By: #### 53407-2 ####[facility] LABCLIA [id number] [place] [address] [place] AMERICALymphocytes (Bld) [#/Vol]2.35 10*3/uLNormal1.00-4.00[facility] on above:Order Comment: Specimen Type: BLOOD SPECIMENOrdering Facility: [facility] Address:[address] [place], [place] [address]Performed By: #### 77183-6 ####[facility] LABCLIA [id number] [place] [id number] [place] AMERICALymphocytes/100 WBC (Bld)21.9 % NormalTriHealth Bethesda North Hospital on above:Order Comment: Specimen Type: BLOOD SPECIMENOrdering Facility: [facility] Address:[address] [place], [place] [address]Performed By: #### 29881-2 ####[facility] LABCLIA [id number] [place] [address] [place] AMERICAMCH (RBC) [Entitic mass]29.1 pyOimfrh57.0-34.0[facility] on above:Order Comment: Specimen Type: BLOOD SPECIMENOrdering Facility: [facility] Address:[address] [place], [place] [address]Performed By: #### 24155-5 ####[facility]PITAL[facility] [id number] [place] [address] [place] MCHC (RBC) [Mass/Vol]33.0 g/nDXgytce50.5-36.0[facility] on above:Order Comment: Specimen Type: BLOOD SPECIMENOrdering Facility: [facility] Address:[address] [place] [address] Performed By: #### 83300-1 ####[facility] [id number] [place] [address] [place] MCV (RBC) [Entitic vol]88.2 gYSdegzn91.0-100.0[facility] on above:Order Comment: Specimen Type: BLOOD SPECIMENOrdering Facility: [facility] Address:[address] [place] [address] Performed By: #### 57423-7 ####[facility] [id number] [place] [address] [place] Monocytes (Bld) [#/Vol]0.78 10*3/uLNormal<0.87[facility] on above:Order Comment: Specimen Type: BLOOD SPECIMENOrdering Facility: [facility] Address:[address] [place] [address] Performed By: #### 39360-6 ####[facility] LABIA [id number] [place] [address] [place] Monocytes/100 WBC (Bld)7.3 %NormalMercy Health Perrysburg Hospitalment on above: Order Comment: Specimen Type: BLOOD SPECIMENOrdering Facility: [facility] Address:[address] [place], [place] [address]Performed By: #### 91441- 8 ####[facility] LABCLIA [id number] [place] [address] [place] AMERICANeutrophils (Bld) [#/Vol]7.11 10*3/uLNormal1.45-7.50[facility] on above:Order Comment: Specimen Type: BLOOD SPECIMENOrdering Facility: [facility] Address:[address] [place], [place] [address]Performed By: #### 72624-7 ####[facility] LABIA [id number] [place] [address] [place] AMERICANeutrophils/100 WBC (Bld)66.4 % NormalTriHealth Bethesda North Hospital on above:Order Comment: Specimen Type: BLOOD SPECIMENOrdering Facility: [facility] Address:[address] [place], [place] [address]Performed By: #### 44774-2 ####[facility] LABIA [id number] [place] [address] [place] AMERICANucleated RBC (Bld) [#/Vol]10*3/uLNormal<0.01[facility] on above:Order Comment: Specimen Type: BLOOD SPECIMENOrdering Facility: [facility] Address:[address] [place], [place] [address]Performed By: #### 42930-6 ####[facility] LABIA [id number] [place] [id number] [place] Nucleated RBC/100 WBC (Bld) [Ratio]0.0 /100 WBCNormalCUniversity Hospitals Health System Comment on above:Order Comment: Specimen Type: BLOOD SPECIMENOrdering Facility: [facility] Address:[address] [place] [address] Performed By: #### 28773-3 ####[facility] LABIA [id number] [address] [place] [address] [place] Platelet mean volume (Bld) [Entitic vol]10.8 fLNormal9.0-12.7CMarietta Memorial Hospital on above:Order Comment: Specimen Type: BLOOD SPECIMENOrdering Facility: [facility] Address:[address] [place], [place] [address]Performed By: #### 85776-0 ####[facility] LABIA [id number] [address] [place] [address] [place] Platelets (Bld) [#/Vol]247 10*3/mCYrrloq382-030CsscasuhgTriHealth Bethes[facility] on above:Order Comment: Specimen Type: BLOOD SPECIMENOrdering Facility: [facility] Address:[address] [place] [address] Performed By: #### 59167-4 ####[facility] LABIA [id number] [address], [place] [address] [place] RBC (Bld) [#/Vol]4.16 10*6/uLNormal3.90-5.20[facility] on above:Order Comment: Specimen Type: BLOOD SPECIMENOrdering Facility: [facility] Address:[address] [place], [place] [address]Performed By: #### 89078-8 ####[facility] LABIA [id number] [place] [id number] [place] AMERICAWBC (Bld) [#/Vol]10.71 10*3/uLNormal3.70-11.00[facility] on above:Order Comment: Specimen Type: BLOOD SPECIMENOrdering Facility: [facility] Address:[address] [place], [place] [address]Performed By: #### 06477- 8 ####[facility] LABIA [id number] [address], [place] [address] [place] AMERICAComprehensive metabolic 2000 panelon 80-47-3848Jugokdr [Mass/Vol]4.1 g/dLNormal3.9-4.9CMarietta Memorial Hospital on above:Order Comment: Specimen Type: BLOOD SPECIMENOrdering Facility: [facility] Address:[address] [place], [place] [address]Performed By: #### 87039-3, 3040-3, 10868-9 ####[facility] LABCLIA [id number] [place] [id number] [place] AMERICAALP [Catalytic activity/Vol]96 U/TAatohq13-705LixfbgxcpTriHealth [facility] on above:Order Comment: Specimen Type: BLOOD SPECIMENOrdering Facility: [facility] Address:[address] [place], [place] [address]Performed By: #### 79448-8, 3040-3, 12963-7 ####[facility] LABCLIA [id number] VILLE [id number] [place] AMERICAALT [Catalytic activity/Vol]29 U/LNormal7-38[facility] on above:Order Comment: Specimen Type: BLOOD SPECIMENOrdering Facility: [facility] Address:[address] [place], [place] [address]Performed By: #### 06199-1, 3040-3, 87685-1 ####[facility] LABCLIA [id number] VILLE [address] [place] AMERICAAnion gap [Moles/Vol]12 mmol/LNormal8-15[facility] on above:Order Comment: Specimen Type: BLOOD SPECIMENOrdering Facility: [facility] Address:[address] [place], [place] [address]Performed By: #### 37235-1, 3040-3, 37546-7 ####[facility] LABCLIA [id number] [address] [place] AMERICAAST [Catalytic activity/Vol]22 U/RShdmqw17-69EjzjbwceyTriHealth Bethesda [facility] on above:Order Comment: Specimen Type: BLOOD SPECIMENOrdering Facility: [facility] Address:[address] [place], [place] [address]Performed By: #### 99079-4, 3040-3, ####[facility] LABCLIA [id number] [address] [address] [place] AMERICABilirubin [Mass/Vol]0.2 mg/dLNormal0.2-1.3CMarietta Memorial Hospital on above:Order Comment: Specimen Type: BLOOD SPECIMENOrdering Facility: [facility] Address:[address] [place], [place] [address]Performed By: #### 43460-1, 3040-3, ####[facility] LABCLIA [id number] [address] [place] AMERICACalcium [Mass/Vol]9.1 mg/dLNormal8.5-10.2CMarietta Memorial Hospital on above:Order Comment: Specimen Type: BLOOD SPECIMENOrdering Facility: [facility] Address:[address] [place], [place] [address]Performed By: #### 28442-0, 3040-3, ####[facility] LABCLIA [id number] [place] [address] [place] OF AMERICAChloride [Moles/Vol]102 mmol/YMcbbem18-748UjrpkohtwTriHealth [facility] on above:Order Comment: Specimen Type: BLOOD SPECIMENOrdering Facility: [facility] Address:[address] [place], [place] [address]Performed By: #### 00990-5, 3040-3, ####[facility] LABCLIA [id number] [address] [address] [place] AMERICACO2 [Moles/Vol]23 mmol/IDlcxuj41-29SwhpegyvpDunlap Memorial Hospital Comment on above:Order Comment: Specimen Type: BLOOD SPECIMENOrdering Facility: [facility] Address:[address] [place] [address] Performed By: #### 06820-2, 3039-3, ####[facility] LABCLIA [id number] [place] [address] [place] AMERICACreatinine [Mass/Vol]0.51 mg/dLLow0.58-0.96[facility] Comment on above:Order Comment: Specimen Type: BLOOD SPECIMENOrdering Facility: [facility] Address:[address] [place] [address] Performed By: #### 84134-9, 3, ####[facility] LABIA [id number] [address] [place] AMERICACreatinine and Glomerular filtration rate.predicted panel (S/P/Bld)123 mL/min/1.73m???Normal>=60[facility] on above:Order Comment: Specimen Type: BLOOD SPECIMENOrdering Facility: [facility] Address:[address] [place], [place] [address]Result Comment: Estimated Glomerular Filtration Rate (eGFR) is [...] not accurately reflect actual GFR.Performed By: #### 62485-2, 3, ####[facility] LABIA [id number] [address] [place] AMERICAGlucose [Mass/Vol]72 mg/dLLow 74-99[facility] Memorial HospitalComtrinity health [facility] on above:Order Comment: Specimen Type: BLOOD SPECIMENOrdering Facility: [facility] Address:[address] [place], [place] [address]Result Comment: The Citizen Of [place] Diabetes Association (ADA) provides guidance for cutoff [...] Standards of Medical Care in Diabetes 2016, Citizen Of [place] Diabetes Association. Diabetes Care. 2016.39(Suppl 1).Performed By: #### 25525- 8, 3039-3, ####[facility] LABIA [id number], [place] [address] [place] AMERICAPotassium [Moles/Vol] 4.0 mmol/LNormal3.7-5.1CMarietta Memorial Hospital on above:Order Comment: Specimen Type: BLOOD SPECIMENOrdering Facility: [facility] Address:[address] [place], [place] [address]Performed By: #### 11286-2, 3039-09, ####[facility] LABIA [id number], [place] [address] [place] AMERICAProtein [Mass/Vol]7.0 g/dLNormal 6.3-8.0[facility] on above:Order Comment: Specimen Type: BLOOD SPECIMENOrdering Facility: [facility] Address:[address] [place], [place] [address]Performed By: #### 11034-5, 3, ####[facility] LABIA [id number], [place] [address] [place] AMERICASodium [Moles/Vol]137 mmol/L Myyeis939-740MyaztmqyuTriHealth [facility] on above:Order Comment: Specimen Type: BLOOD SPECIMENOrdering Facility: [facility] Address:[address] [place], [place] [address]Performed By: #### 04903-2, 3040-3, 73893-7 ####[facility] LABCLIA [id number] VILLE [id number] [place] AMERICAUrea nitrogen [Mass/Vol]23 mg/dL High7-21[facility] on above:Order Comment: Specimen Type: BLOOD SPECIMENOrdering Facility: [facility] Address:[address] [place], [place] [address]Performed By: #### 56802-9, 3040-3, 86328-6 ####[facility] LABCLIA [id number] [place] [id number] [place] AMERICAED PROV NOTEon 56-94-3067ZN PROV NOTENormalCUniversity Hospitals Health SystemLipase SerPl-cCncon 59-33-1912Aysrlq [Catalytic activity/Vol]25 U/KNdtoco33-16NrapyonfjTriHealth [facility] on above:Order Comment: Specimen Type: BLOOD SPECIMENOrdering Facility: [facility] Address:[address] [place], [place] [address]Performed By: #### 42284-7, 3040-3, ####[facility] LABCLIA [id number] [place] [address] [place] AMERICAMagnesium SerPl-mCncon 85-06-3789Qdqtuevcy [Mass/Vol]2.1 mg/dLNormal1.7-2.3CMarietta Memorial Hospital on above:Order Comment: Specimen Type: BLOOD SPECIMENOrdering Facility: [facility] Address:[address] [place], [place] [address]Performed By: #### 89072-8, 3040-3, ####[facility] LABCLIA [id number] [place] [address] [place] AMERICASEPSIS LACTATE W/ REFLEX (INITIAL)on 10-28-2024 Lactate [Moles/Vol]1.3 mmol/LNormal<=2.0[facility] on above:Order Comment: Specimen Type: BLOOD SPECIMENOrdering Facility: [facility] Address:[address] [place], [place] [address]Performed By: #### SLACTR ####[facility] LABCLIA [id number] [place] [address] [place] AMERICAUrinalysis complete panel (U)on 58-69-2407Moirxqcg LM.HPF (Urine sed) [#/Area]NegativeNormalNegative [facility] on above:Order Comment: Specimen Type: URINE SPECIMENOrdering Facility: [facility] Address:[address] [place], [place] [address]Performed By: #### 93899-2 ####[facility] LABCLIA [id number] [address] OF AMERICABilirubin Ql (U)NegativeNormalNegativeTriHealth [facility] on above:Order Comment: Specimen Type: URINE SPECIMENOrdering Facility: [facility] Address:[address] [place] [address] Performed By: #### 12599-9 ####[facility] LABCLIA [id number] [address], [place] [address] [place] Clarity (Unsp spec)ClearNormalClearTriHealth [facility] on above: Order Comment: Specimen Type: URINE SPECIMENOrdering Facility: [facility] Address:[address] [place], [place] [address]Performed By: #### 88801- 8 ####[facility] LABCLIA [id number] [address]Color (U)YellowNormalYellow [facility] on above:Order Comment: Specimen Type: URINE SPECIMENOrdering Facility: [facility] Address:[address] [place], [place] [address]Performed By: #### 07098-1 ####[facility] LABCLIA [id number] [place] [address] [place] AMERICAEpithelial cells LM.HPF (Urine sed) [#/Area]FewNormalCMarietta Memorial Hospital on above:Order Comment: Specimen Type: URINE SPECIMENOrdering Facility: [facility] Address:[address] [place], [place] [address]Performed By: #### 78035-8 ####[facility] LABCLIA [id number] [place] [address] [place] Glucose Test strip (U) [Mass/Vol]NegativeNormalNegativeTriHealth [facility] on above:Order Comment: Specimen Type: URINE SPECIMENOrdering Facility: [facility] Address:[address] [place], [place] [address]Performed By: #### 32027-8 ####[facility] LABIA [id number] [place] [address] [place] Hemoglobin Ql (U)NegativeNormalNegativeTri[facility] on above:Order Comment: Specimen Type: URINE SPECIMENOrdering Facility: [facility] Address:[address] [place], [place] [address]Performed By: #### 63858-5 ####[facility] LABIA [id number] [place] [address] [place] AMERICAHyaline casts (Urine sed) [#/Area]0 /[LPF]Normal0 /LPFCMarietta Memorial Hospital on above: Order Comment: Specimen Type: URINE SPECIMENOrdering Facility: [facility] Address:[address] [place], [place] [address]Performed By: #### 43617- 8 ####[facility] LABCLIA [id number] [place] [address] [place] AMERICAKetones Ql (U)NegativeNormal NegativeTriHealth Bethesda [facility] on above:Order Comment: Specimen Type: URINE SPECIMENOrdering Facility: [facility] Address:[address] [place], [place] [address]Performed By: #### 36312-9 ####[facility] LABCLIA [id number] [place] [address] LAWR[facility] PSYCHIATRIC CENTERLeukocyte esterase Test strip Ql (U)NegativeNormal NegativeTriHealth [facility] on above:Order Comment: Specimen Type: URINE SPECIMENOrdering Facility: [facility] Address:[address] [place], [place] [address]Performed By: #### 99095-7 ####[facility] LABCLIA [id number] [address]ETitrite Ql (U)NegativeNormalNegativeTri[facility] on above:Order Comment: Specimen Type: URINE SPECIMENOrdering Facility: [facility] Address:[address] [place], [place] [address]Performed By: #### 21345-2 ####[facility] LABCLIA [id number] [place] [address] [place] pH (U)6.5 [pH]Normal<8.5CMarietta Memorial Hospital on above:Order Comment: Specimen Type: URINE SPECIMENOrdering Facility: [facility] Address:[address] [place], [place] [address]Performed By: #### 28744- 8 ####[facility] LABCLIA [id number] [place] [id number] [place] [facility] [facility] PSYCHIATRIC CENTERProtein (U) [Mass/Vol]Negative NormalNegativeTriHealth [facility] on above:Order Comment: Specimen Type: URINE SPECIMENOrdering Facility: [facility] Address:[address] [place], [place] [address]Performed By: #### 76982-1 ####[facility] LABCLIA [id number] [place] [id number] [place] [address] LAWRENCE PSYCHIATRIC CENTERRBC LM.HPF (Urine sed) [#/Area]0-2 /HPFNormal0-2 /HPF [facility] on above:Order Comment: Specimen Type: URINE SPECIMENOrdering Facility: [facility] Address:[address] [place], [place] [address]Performed By: #### 91603-3 ####[facility] [id number] [place] [address] [place] AMERICASpecific gravity (U) [Rel density]1.429Edlvua1.005-1.030Dun[facility] Memorial HospitalComment on above:Order Comment: Specimen Type: URINE SPECIMENOrdering Facility: [facility] Address:[address] [place], [place] [address]Performed By: #### 93139-9 ####[facility] [id number] [place] [address] [place] Urobilinogen Ql (U)0.2 EU/dLNormal0.2-1.0 EU/dLTriHealth Bethesda North Hospital on above:Order Comment: Specimen Type: URINE SPECIMENOrdering Facility: [facility] Address:[address] [place] [address] Performed By: #### 65760-1 ####[facility] [id number] [place] [address] [place] WBC LM.HPF (Urine sed) [#/Area]0-5 /HPFNormal0-5 /HPFDunlap Memorial Hospital Comment on above:Order Comment: Specimen Type: URINE SPECIMENOrdering Facility: [facility] Address:[address] [place] [address] Performed By: #### 59975-9 ####[facility] [id number] [place] [address] [place] XR CHEST 1V FRONTAL PORTon 93-49-7462CI CHEST 1V FRONTAL PORTNormalCUniversity Hospitals Health SystemCNNorthside Hospital Cherokee 09-67-3939WQRDMtkcgqXvvqlzbbw Clinic ClevelandCNPNon 57-88-2419WXOBDhlltoCdtdmeild Clinic ClevelandCNPNon 09-93-1657IUCHNppsbr [facility]lap Memorial HospitalCNPNon 15-75-9273IXZPZouevmCmtrsscnv Clinic [facility] CNPNon 55-89-5764CYUEOtgljtDajaxhkoe Clinic ClevelandCoding Summaryon 10-02-2024 Coding SummaryHTMLBase 64 OjgzujogBJm3pEf+PGhlYWQ+HO2KYBUdW18mnAOonB6pY7ZQGLtAMaviKTJHXGeTFfGssaXhTS8ewPXd ZXJu [file] b2x (more content not included)...[facility].Auto Diff 1on 67-46-1347Hdmr [place] %8 %Normal-12[facility] HospitalComment on above:Performed By: #### 83149441, 4704495, 8614506, 7739577, [id number], 8138153 #### [facility] (DEFAULT) [address] [place] [address]Vgyu Abs#0.0 q97Zcgasc1.0-0.2Magrselect medical cleveland clinic [facility], beachwood HospitalComment on above:Performed By: #### 28315558, 0067234, 9654359, 0139497, [id number], 8488263 #### [facility] (DEFAULT) [address] [place] [address] 14324Wgctedwlh/100 WBC (Bld)1.1 %Normal0.2-2.0[facility] Comment on above:Performed By: #### 94068038, 9116808, 8153671, 4713908, [id number], 7931445 #### [facility] (DEFAULT) [address] [place] [address] 923[address]Exc Abs#0.1 k22Leebku2.0-0.4Mametrohealth cleveland heights medical center HospitalComment on above:Performed By: #### 45891549, 4757459, 1368309, 0896885, [id number], 6484642 #### [facility] (DEFAULT) [address] [place] [address] 00241Wablsudnosw/100 WBC (Bld)3.8 %Normal0.9-4.0[facility] HospitalComment on above:Performed By: #### 40700080, 8555209, 5095719, 1288464, [id number], 7125856 #### [facility] (DEFAULT) [address] [place] [address] 84[address]Nzset Abs#0.8 o09Hbg6.3-2.9[facility] HospitalComment on above:Performed By: #### 39846403, 6143093, 0565837, 3997651, [id number], 6948782 #### [facility] (DEFAULT) [address] [place] [address] 97[address]Xacjbyoulxb/100 WBC (Bld)26 %Hcmgez11-48Xmtmucsm Hospital Comment on above:Performed By: #### 57883630, 1748973, 4812398, 5624150, [id number], 0672312 #### [facility] (DEFAULT) [address] [place] [address] 81265Nqmi Abs#0.3 c26Bdjvlm9.0-0.8[facility] HospitalComment on above:Performed By: #### 67693161, 5225600, 7604355, 2280163, [id number], 7501688 #### [facility] (DEFAULT) [address] [place] [address] 840[address]Ejcy Abs#2.0 x12Gxpxdh1.5-9.2Mselect medical specialty hospital - southeast [place] HospitalComment on above:Performed By: #### 42234000, 5027052, 8176555, 8654101, [id number], 4915504 #### [facility] (DEFAULT) [address] [place] [address]Uvwigwbhaaz/100 WBC (Bld)61 %Agyfmv46-02Sydbtftb Hospital Comment on above:Performed By: #### 49057670, 0436543, 1475757, 6248980, [id number], 4925839 #### [facility] (DEFAULT) [address] [place] [address] 61351ZDF w/ Auto Diffon 04-30-9739Obyewptwhsg distribution width (RBC) [Ratio]17.2 %High11.5-15.0[facility] HospitalComment on above: Performed By: #### 43687127, 5840107, 9304069, 1145345, [id number], 7382523 #### [facility] (DEFAULT) [address] [place] [address] 48587Mnnnmoyyge (Bld) [Volume fraction]29.7 %Low33.7-40.4 [facility] HospitalComment on above:Performed By: #### 71033257, 5826475, 4164057, 0604122, [id number], 4676859 #### [facility] (DEFAULT) [address] [place], [place] [address]Hemoglobin (Bld) [Mass/Vol]9.9 g/dLLow11.3-15.9[facility] HospitalComment on above:Performed By: #### [id number], [id number], 7663738, 3449782, [id number], [id number] #### [facility] (DEFAULT) [address] [place] [address] 51193Vog Diff?AutoInvalid Interpretation [facility] Comment on above:Performed By: #### [id number], [id number], 0868290, 7999636, [id number], [id number] #### [facility] (DEFAULT) [address] [place] [address] 18504PFI (RBC) [Entitic mass]30 qpSqtwin06-37[facility] Comment on above:Performed By: #### [id number], 5897210, 3929518, 0999394, [id number], 8199939 #### [facility] (DEFAULT) [address] [place] [address] 09782QVIT (RBC) [Mass/Vol]33 g/vQXrkqwe13-12[facility] Comment on above:Performed By: #### [id number], [id number], 3291647, 8131714, [id number], [id number] #### [facility] (DEFAULT) [address] [place] [address] 53487BLT (RBC) [Entitic vol]90 zZHocrtx58-533[facility] Comment on above:Performed By: #### [id number], 2347932, 4067867, 3830445, [id number], [id number] #### [facility] (DEFAULT) [address] [place] [address] 09322Cdtnjmka247 v22Phwndk315-435[facility] HospitalComment on above:Performed By: #### [id number], 4385368, 8791663, 2507762, [id number], 4136323 #### [facility] (DEFAULT) [address] [place] [address] 09818Wrpjgbaq mean volume (Bld) [Entitic vol]9.7 fLNoal 6.3-10.2M[facility] [place] HospitalComment on above:Performed By: #### [id number], 1190681, 9298672, 6597821, [id number], 9322195 #### [facility] (DEFAULT) [address] [place] [address] 31817JMU6.29 q68Ocm3.70-5.30[facility] HospitalComment on above: Performed By: #### 78170506, 2527091, 1119550, 7989325, [id number], 1654478 #### [facility] (DEFAULT[facility] [address] [place] [address] 00758YTT8.2 j38Rzo4.5-10.5[facility] HospitalComment on above: Performed By: #### 04780246, 2446287, 7670559, 2810917, 4492089386, 3294044 #### [facility] (DEFAULT) [address] [place] [address] 63544PCI Standardon 89-89-1398nANR Non AA>60Invalid Interpretation [facility] HospitalComment on above:Performed By: #### 29377986, 7032218, 0805090, 7062739, 8120532131, 9407007 #### [facility] (DEFAULT) [address] [place] [address] 46062mZGU AA>60Invalid Interpretation [facility] Comment on above:Performed By: #### 73452851, 3448753, 5057784, 6095918, 7029344388, 2672459 #### [facility] (DEFAULT) [address] [place] [address] 34608Spwrbtp [Mass/Vol]3.3 g/dLLow3.5-5.0[facility] Comment on above:Performed By: #### 47999930, 3757320, 8817702, 2614699, [id number], 0778477 #### [facility] (DEFAULT) [address] [place] [address] 25011Tov Phos68 IU/MSzuyjd49-55Zcrfeiob HospitalComment on above:Performed By: #### 02437744, 8896698, 4183764, 2702416, 2301115198, 8961017 #### [facility] (DEFAULT) [address] [place] [address] 03148FOW [Catalytic activity/Vol]47.0 U/ALfvedl76.0-54.0 [facility] HospitalComment on above:Performed By: #### 82167005, 9381731, 5362439, 8476885, 3484102965, 1926900 #### [facility] (DEFAULT) [address] [place] [address] 37676AYI [Catalytic activity/Vol]33 U/MHlspat11-77Uwciemje HospitalComment on above:Performed By: #### 90316088, 7941584, 9931188, 6221058, 2601740883, 7981422 #### [facility] (DEFAULT) [address] [place] [address] 14097Hedo Total0.2 mg/dLLow0.3-1.2MCincinnati VA Medical CenterComment on above:Performed By: #### 76887247, 0048226, 0541349, 4598755, 9113829577, 5014592 #### [facility] (DEFAULT) [address] [place] [address] 43059Idgtwwc [Mass/Vol]8.7 mg/dLLow8.9-10.3[facility] Comment on above:Performed By: #### 54378143, 6181947, 9451593, 0876995, 7753652954, 1790383 #### [facility] (DEFAULT) [address] [place] [address] 37050Ldejdbpx [Moles/Vol]103 mmol/YBjspzx978-822Valuhcvu HospitalComment on above:Performed By: #### 92243884, 7237372, 2272244, 3676286, 0074234251, 4035030 #### [facility] (DEFAULT) [address] [place] [address] 95567PS3 [Moles/Vol]23 mmol/IQblwie72-49Xyzmarho Hospital Comment on above:Performed By: #### 23429541, 8899218, 0567437, 3016317, 1076876348, 9592341 #### [facility] (DEFAULT) [address] [place] [address] 53272Srdgtbqodd [Mass/Vol]0.46 mg/dLLow0.60-1.30[facility] HospitalComment on above:Performed By: #### 75066893, 4081512, 7649481, 4460128, 9774230099, 7770539 #### [facility] (DEFAULT) [address] [place] [address] 00705Gzrvgzv [Mass/Vol]90.0 mg/dIWwmbbo53.0-118.0[facility] HospitalComment on above:Performed By: #### 57162477, 3238787, 8652377, 9596848, 4267321755, 0862850 #### [facility] (DEFAULT) [address] [place] [address] 31517Klskvyozr [Moles/Vol]4.6 mmol/LNormal3.6-5.1Mselect [facility] HospitalComment on above:Performed By: #### 55525377, 0575195, 9924948, 4069474, 1171854089, 9053744 #### [facility] (DEFAULT) [address] [place] [address] 65270Ykneptb [Mass/Vol]6.3 g/dLLow6.5-8.1M[facility] Hospital Comment on above:Performed By: #### 59300112, 2153084, 7216493, 9266685, 7370550988, 9715831 #### [facility] (DEFAULT) [address] [place] [address] 77380Vznyjq [Moles/Vol]135.0 mmol/OFcx921.0-144.0[facility] HospitalComment on above:Performed By: #### 00276032, 2268569, 2714897, 7069600, 6399670672, 5395772 #### [facility] (DEFAULT) [address] [place] [address] 18793Lvae nitrogen [Mass/Vol]24 mg/dLNormal8-26[facility] HospitalComment on above:Performed By: #### 27622810, 7334513, 3685440, 4424974, 1092582158, 6760858 #### [facility] (DEFAULT) [address] [place] [address] 32551Tqllzea/Globulin [Mass ratio]1.1 {ratio}Low1.4-2.6Magrselect medical [facility] HospitalComment on above:Performed By: #### 17358889, 0811538, 9337485, 8887475, 5821694563, 6881669 #### [facility] (DEFAULT) [address] [place] [address] 28280Hykev gap [Moles/Vol]13.6 mmol/LNormal5.0-19.0[facility] HospitalComment on above:Performed By: #### 30952281, 6356283, 9498450, 2984650, 1426347885, 5938006 #### [facility] (DEFAULT) [address] [place] [address] 75911Omtyaawc (S) [Mass/Vol]3.0 g/dLNormal1.5-4.3Mselect [facility] HospitalComment on above:Performed By: #### 31716613, 8454421, 9384510, 5933546, 7520470661, 5392789 #### [facility] (DEFAULT) [address] [place] [address] 47655Sxjiqfgyzu068 mOsm/LInvalid Interpretation CodeMercy Health St. [facility] HospitalComment on above:Performed By: #### 42339637, 8206148, 6119008, 0793698, 2038562654, 2802182 #### [facility] (DEFAULT) [address] [place] [address] 91659Bsek nitrogen/Creatinine [Mass ratio]52.1 mg/mgHigh 4.6-16.2MCincinnati VA Medical CenterComment on above:Performed By: #### 85876263, 8109219, 2244415, 6828760, 7592821394, 3028314 #### [facility] (DEFAULT) [address] [place] [address] 12139Zumcsifcqjp 19-19-2285Ggujzxryi [Mass/Vol]1.85 mg/dLNormal 1.80-2.50[facility] HospitalComment on above:Performed By: #### 11550978, 9760597, 9694289, 2104532, 7878601853, 0499360 #### [facility] (DEFAULT) [address] [place] [address] 10822Vqfmki 81-56-6185Hmnfkauks [Mass/Vol]4.3 mg/dLNormal 2.5-4.6Mselect [facility] HospitalComment on above:Performed By: #### 51105396, 9534746, 8030634, 9136679, 6505688433, 7268707 #### [facility] (DEFAULT) [address] [place] [address] 91382Lkmzvvgq Orderson 48-64-9612Ktbzesfe Orders [id number]#1.00OTGTIFFNormalParma Community General HospitalTrig on 17-03-4660Bckwwqjnleby [Mass/Vol]58.0 mg/dLNormal0.0-150.0[facility] Comment on above:Performed By: #### 00596697, 0793714, 9632031, 4076333, 1357435282, 7501195 #### [facility] (DEFAULT) [address] [place] [address] 13838QNUVkz 41-23-4306DCPPRraficCrhgztoxj Clinic ClevelandCNPN on 22-77-1381LUFWWpfomnVmeztahdb Clinic ClevelandUS ARM VEIN DVT MARKO VAS LABon 36-32-7865SU ARM VEIN DVT MARKO VAS LABNormalCCleveland Clinic [facility] Clepeoples hospitalUrinalysis complete panel (U)on 14-42-3590Fjxapskl LM.HPF (Urine sed) [#/Area]Negative NormalNegativeTriHealth [facility] on above:Order Comment: Specimen Type: URINE SPECIMENOrdering Facility: [facility] Address:[address] [place], [place] [address]Performed By: #### 50048-1 ####[facility] LABCLIA [id number] [address] [place] [address] [place] AMERICABilirubin Ql (U)NegativeNormalNegativeTriHealth Bethesda North Hospital on above:Order Comment: Specimen Type: URINE SPECIMENOrdering Facility: [facility] Address:[address] [place], [place] [address]Performed By: #### 65882-6 ####[facility] LABCLIA [id number] [address] [place] [address] [place] Clarity (Unsp spec)ClearNormalClearTriHealth Bethesda North Hospital on above: Order Comment: Specimen Type: URINE SPECIMENOrdering Facility: [facility] Address:[address] [place], [place] [address]Performed By: #### 06327- 8 ####[facility] LABCLIA [id number] [address] [place] [address] [place] AMERICAColor (U)YellowNormalYellow [facility] on above:Order Comment: Specimen Type: URINE SPECIMENOrdering Facility: [facility] Address:[address] [place], [place] [address]Performed By: #### 23134-8 ####[facility] LABCLIA [id number] [address] [place] [address] [place] AMERICAEpithelial cells LM.HPF (Urine sed) [#/Area]None SeenNormBarney Children's Medical Center on above:Order Comment: Specimen Type: URINE SPECIMENOrdering Facility: [facility] Address:[address] [place], [place] [address]Performed By: #### 90997-3 ####[facility] LABCLIA [id number] [address], [place] [address] [place] AMERICAGlucose Test strip (U) [Mass/Vol]NegativeNormalNegativeTriHealth [facility] on above:Order Comment: Specimen Type: URINE SPECIMENOrdering Facility: [facility] Address:[address] [place], [place] [address]Performed By: #### 75399-2 ####[facility] LABCLIA [id number] [address], [place] [address] [place] Hemoglobin Ql (U)2+AbnormalNegativeTriHealth [facility] on above: Order Comment: Specimen Type: URINE SPECIMENOrdering Facility: [facility] Address:[address] [place], [place] [address]Performed By: #### 55521- 8 ####[facility] LABIA [id number] [place] [address] [place] AMERICAHyaline casts (Urine sed) [#/Area]0 /[LPF]Normal0 /LPFCMarietta Memorial Hospital on above:Order Comment: Specimen Type: URINE SPECIMENOrdering Facility: [facility] Address:[address] [place], [place] [address]Performed By: #### 25865- 8 ####[facility] LABCLIA [id number] [place] [id number] [place] AMERICAKetones Ql (U)NegativeNormal NegativeTriHealth Bethesda North Hospital on above:Order Comment: Specimen Type: URINE SPECIMENOrdering Facility: [facility] Address:[address] [place], [place] [address]Performed By: #### 22496-5 ####[facility] LABCLIA [id number] [address], [facility] [place] AMERICALeukocyte esterase Test strip Ql (U)NegativeNormal NegativeTriHealth Bethesda North Hospital on above:Order Comment: Specimen Type: URINE SPECIMENOrdering Facility: [facility] Address:[address] [place], [place] [address]Performed By: #### 39422-5 ####[facility] LABCLIA [id number] [address] [place] [address] [place] AMERICANitrite Ql (U)NegativeNormalNegativeTriHealth [facility] on above:Order Comment: Specimen Type: URINE SPECIMENOrdering Facility: [facility] Address:[address] [place], [place] [address]Performed By: #### 03364-0 ####[facility] LABCLIA [id number] [address] [address] [place] pH (U)5.5 [pH]Normal<8.5CMarietta Memorial Hospital on above:Order Comment: Specimen Type: URINE SPECIMENOrdering Facility: [facility] Address:[address] [place], [place] [address]Performed By: #### 17248- 8 ####[facility] LABCLIA [id number] [address] [address] [place] [facility] HOSPITALProtein (U) [Mass/Vol]Negative NormalNegativeTriHealth [facility] on above:Order Comment: Specimen Type: URINE SPECIMENOrdering Facility: [facility] Address:[address] [place], [place] [address]Performed By: #### 59266-0 ####[facility] LABCLIA [id number] [address] [address] [place] [facility]AL HOSPITALRB LM.HPF (Urine sed) [#/Area]11-20 /HPFAbnormal0-2 /HPFTriHealth Bethesda North Hospital on above:Order Comment: Specimen Type: URINE SPECIMENOrdering Facility: [facility] Address:[address] [place], [place] [address]Performed By: #### 97138-3 ####[facility] [id number] [place] [address] [place] AMERICASpecific gravity (U) [Rel density]1.117Hadiop3.005-1.030 [facility] HospitalComment on above:Order Comment: Specimen Type: URINE SPECIMENOrdering Facility: [facility] Address:[address] [place], [place] [address]Performed By: #### 34992-2 ####[facility] [id number] [place] [address] [place] AMERICAUrobilinogen Ql (U)0.2 EU/dLNormal0.2-1.0 EU/dLDunlap Memorial Hospital Comment on above:Order Comment: Specimen Type: URINE SPECIMENOrdering Facility: [facility] Address:[address] [place] [address] Performed By: #### 94290-9 ####[facility] [id number] [place] [address] [place] WBC LM.HPF (Urine sed) [#/Area]0-5 /HPFNormal0-5 /HPFDunlap Memorial Hospital Comment on above:Order Comment: Specimen Type: URINE SPECIMENOrdering Facility: [facility] Address:[address] [place] [address] Performed By: #### 66942-7 ####[facility] [id number] [place] [id number] [place] CNNURSEon 93-33-0395AEXRJRUWzspqnOohgpwzro Clinic ClevelandCNOVon 11-57-3060TXST NormalDunlap Memorial HospitalCNPNon 36-95-9238TDXTHnzcryKjsswmvqi Clinic ClevelandCNPNon 62-08-9231KQGAXpdxnsAxidpxnal Clinic ClevelandCNDSon 09-06-2024 CNDSHNO ID: [id number] Author: JOSE RICE MD Service: Hospital Medicine [...] 08/18/24, anxiety/depression, nicotine use who presented to [facility] for a clotted LUE PICC line. Patient recently discharged on 08/30/24 from . She was discharged home with LUE PICC with nightly TPN. Her [facility] nurse and boyfriend were having difficulty [...] was then cleared for discharge home with [facility] in stable condition and advised early [...] Center 09/18/2024 2:00 PM (more content not included)...NormalSeabrook HospitalMagnesium SerPl-mCncon 52-01-8772Bpqgjraeu [Mass/Vol]2.2 mg/dLNormal1.7-2.3ALone [facility] Comment on above:Order Comment: Specimen Type: BLOOD SPECIMENOrdering Facility: [facility] Address:[address] [place] [address] Performed By: #### 18279-4, 46940-7 ####[facility] LABORATORYCLIA [id number] [place] [address] [facility] NURSING PROGon 05-71-7110CJDUZLU PONCE ID: [id number] Author: SHERLY LEWIS RN Service: Nursing Author Type: Registered Nurse Type: Nursing Progress Note Filed: 09/11/2024 15:33 Note Text: Completed post procedure phone call. Francine stated that the Reece site is extremely painful and whenever she gets anything through the reece it is hard for her to sleep. Spoke with Obdulia Cesar, planner/scheduler to get patient on the schedule for a Line Check. Also gave patient our phone number and Jayden phone number You are scheduled for a Line Check, On 09/14/2024. You are to arrive at 8:30 am and Report to [facility]: [facility]: Radiology Outpatient Desk [id number] You can expect to be here for 1 hour Diet: You can eat and drink normally Medications: Ok to take your cardiac, blood pressure, anti-seizure, and chronic pain medications with a sip of water, please take prior to arrival. Bring your current medication list. Contrast Dye Prep: Do you have a contrast dye allergy? No. Labs: Lab-work needs to be drawn? No.. [employer]ed [employer] Panels Developer/Transportation: How will you be arriving for your procedure? Private car. NormalAvon HospitalNUTRITION on 88-68-1099BRVWDLRVBTKC ID: [id number] Author: GHASSAN MARSH RD Service: Nutrition Therapy [...] 2024 TIME: 1:55 PMNormalAvon HospitalPTT, ANTICOAGULANT THERAPYon 81-04-8529nLSR Coag (PPP) [Time]59.5 sHigh23.0-32.4Avon HospitalComment on above:Order Comment: Specimen Type: BLOOD SPECIMENOrdering Facility: [facility] Address:[address] [place] [address] [place], [place] [address]Performed By: #### PTTAC ####[facility] LABORATORYIA [id number] [place] [address] [place] AMERICARenal function 2000 panelon 41-35-9164Iokivmk [Mass/Vol] 3.6 g/dLLow3.9-4.9Avon HospitalComment on above:Order Comment: Specimen Type: BLOOD SPECIMENOrdering Facility: [facility] Address:[address] [place], [place] [address]Performed By: #### 22122-1, 94279-4 ####[facility] LABORATORYCLIA [id number] [place] [address] [place] AMERICAAnion gap [Moles/Vol]11 mmol/LNormal8-15Av HospitalComment on above:Order Comment: Specimen Type: BLOOD SPECIMENOrdering Facility: [facility] Address:[address] [place], [place] [address]Performed By: #### 81831-3, 79962-1 ####[facility]OSPITALIA [id number] [place] [address] [place] AMERICACalcium [Mass/Vol]9.5 mg/dL Normal8.5-10.2Avo HospitalComment on above:Order Comment: Specimen Type: BLOOD SPECIMENOrdering Facility: [facility] Address:[address] [place], [place] [address]Performed By: #### 73757-8, 01595-8 ####[facility] HOSPITALIA [id number] [place] [address] [place] AMERICAChloride [Moles/Vol]98 mmol/YAmnnsj16-917Wxpi HospitalComment on above:Order Comment: Specimen Type: BLOOD SPECIMENOrdering Facility: [facility] Address:[address] [place] [address] Performed By: #### 12263-1, 20596-2 ####[facility] LABORATORYIA [id number] [place] [address] [place] AMERICACO2 [Moles/Vol]31 mmol/OHcdr48-23Ezdh HospitalComment on above:Order Comment: Specimen Type: BLOOD SPECIMENOrdering Facility: [facility] Address:[address] [place] [address]Vpyjumfmm By: #### 82072-5, 88794-3 ####[facility] LABORATORYCLIA [id number] [place] [address] [place] AMERICACreatinine [Mass/Vol]0.62 mg/dLNormal0.58-0.96Av HospitalComment on above:Order Comment: Specimen Type: BLOOD SPECIMENOrdering Facility: [facility] Address:[address] [place] [address]Wrayswupd By: #### 37027-9, 09495-1 ####[facility] HOSPITALIA [id number] [place] [address] [place] Creatinine and Glomerular filtration rate.predicted panel (S/P/Bld)119 mL/min/1.73m???Normal>=60Av HospitalComment on above:Order Comment: Specimen Type: BLOOD SPECIMENOrdering Facility: [facility] Address:[address] [place] [address]Rozurm Comment: Estimated Glomerular Filtration Rate (eGFR) is calculated using the 2020 CKD-EPI creatinine equation. This equation utilizes serum creatinine, sex, and age as parameters. The creatinine assay has traceable calibration to isotope dilution-mass spectrometry. Refer to KDIGO guidelines for clinical interpretation. In patients with unstable renal function, e.g. those with acute kidney injury, the eGFR may not accurately reflect actual GFR.Performed By: #### 61912-1, 93560-8 ####[facility] LABORATORYIA [id number] [place] [address] [place] AMERICAGlucose [Mass/Vol]107 mg/nPXjdp87-55Ixgc HospitalComment on above:Order Comment: Specimen Type: BLOOD SPECIMENOrdering Facility: [facility] Address:[address] [place] [address]Xrvgjd Comment: The Citizen Of [place] Diabetes Association (ADA) provides guidance for cutoff [...] Standards of Medical Care in Diabetes 2016, Citizen Of [place] Diabetes Association. Diabetes Care. 2016.39(Suppl 1).Performed By: #### 68012-7, 69999-1 ####[facility]OSPITALIA [id number] [place] [address] [place] AMERICAPhosphate [Mass/Vol]3.6 mg/dLNormal2.7-4.8Avon HospitalComment on above:Order Comment: Specimen Type: BLOOD SPECIMENOrdering Facility: [facility] Address:[address] [place], [place] [address]Performed By: #### 37596-3, ####[facility] HOSPITALIA [id number] [place] [address] [place] Potassium [Moles/Vol]3.8 mmol/LNormal3.7-5.1Avon HospitalComment on above:Order Comment: Specimen Type: BLOOD SPECIMENOrdering Facility: [facility] Address:[address] [place], [place] [address]Performed By: #### 75434- 9, ####[facility] HOSPITALIA [id number] [place] [address] [place] AMERICASodium [Moles/Vol]140 mmol/LNormal 136-144Avon HospitalComment on above:Order Comment: Specimen Type: BLOOD SPECIMENOrdering Facility: [facility] Address:[address] [place], [place] [address]Performed By: #### 21788-1, 78954-1 ####[facility] LABORATORYIA [id number] [place] [address] [place] AMERICAUrea nitrogen [Mass/Vol]19 mg/dLNormal7-21on HospitalComment on above:Order Comment: Specimen Type: BLOOD SPECIMENOrdering Facility: [facility] Address:[address] [place] [address] Performed By: #### 69524-8, 82398-9 ####[facility] LABORATORYCLIA [id number] [place] [address] [facility] ANES POSTPROC EVALon 68-21-4423VYME POSTPROC EVALHNO ID: [id number] Author: RAHUL TRENT MD Service: Anesthesiology Author [...] September 05, 2024 TIME: 11:05 AM CSN: [id number] Memorial Hospital PRE-OPon 52-12-1645VLDW PRE-OPHNO ID: [id number] Author: RAHUL TRENT MD Service: Anesthesiology Author [...] and consent discussed: yes. Patient / Responsible Constitution Party agrees to proceed: yes Patient / [...] ON 10/01/2024] apixaban (ELIQ (more content not included)...[facility] 95-31-4182LNZOH OP NOTHNO ID: [id number] Author: CHARITO WASHINGTON MD Service: Interventional Radiology [...] note. ATTENDING RADIOLOGIST: Interventional: Dr. Charito Washington CERAMIC TILE SETTER: None PRE-PROCEDURAL DIAGNOSIS: malnutrition PROCEDURE: Other (specify) [...] [place] DATE: September 05, 2024 TIME: 10:04 [facility] HospitalTORY PHYSICALon 22-94-7913PXLIGJF PHYSICAL HNO ID: [id number] Author: CHARITO WASHINGTON MD Service: Interventional Radiology [...] Prior to Admission medications as of 09/01/24 8443 Medication Sig Last Dose Taking calcium polycarbophil [...] [place] DATE: September 05, 2024 TIME: 8:49 [facility] HospitalIR FLU GD RAHEL CVA PLACEon 12-65-3773WC FLU GD RAHEL CVA PLACE* * *Final Report* * * DATE OF EXAM: Sep 05 2024 9:54AM A 7444 - IR FLU GD RAHEL CVA PLACE / PROCEDURE REASON: 2L reece * * * * Physician Interpretation * * * * PROCEDURE: TUNNELED CENTRAL VENOUS CATHETER PLACEMENT AND PICC LINE REMOVAL Procedural Personnel Attending(s): Charito Washington M.D. Reed Or Wind Instrument Repairer(s): Fellow(s): None Resident(s): None Advanced practice provider(s): [...] purse string suture. Sterile dressing(s) applied. The [facility] Central Line Insertion checklist, attached to [...] (PICC) line removal. Lizzy (more content not included)...The Medical CenterIR INSERT REECE CATHon 55-67-4836IB INSERT REECE CATH* * *Final Report* * * DATE OF EXAM: Sep 05 2024 9:54AM [facility] 9309 - IR INSERT REECE CATH / PROCEDURE REASON: 2L reece * * * * Physician Interpretation * * * * PROCEDURE: TUNNELED CENTRAL VENOUS CATHETER PLACEMENT AND PICC LINE REMOVAL Procedural Personnel Attending(s): Charito Washington M.D. Reed Or Wind Instrument Repairer(s): Fellow(s): None Resident(s): None Advanced practice provider(s): [...] purse string suture. Sterile dressing(s) applied. The [facility] Central Line Insertion checklist, attached to [...] (PICC) line removal. Man (more content not included)...The Medical CenterIR US VASCULAR ACCESS GUIDE on 87-92-1773AX US VASCULAR ACCESS GUIDE* * *Final Report* * * DATE OF EXAM: Sep 05 2024 9:54AM [facility] [id number] - IR VASCULAR ACCESS GUIDE / PROCEDURE REASON: 2L reece * * * * Physician Interpretation * * * * PROCEDURE: TUNNELED CENTRAL VENOUS CATHETER PLACEMENT AND PICC LINE REMOVAL Procedural Personnel Attending(s): Charito Washington M.D. [employer] Repairer(s): Fellow(s): None Resident(s): None Advanced practice provider(s): [...] purse string suture. Sterile dressing(s) applied. The [facility] Central Line Insertion checklist, attached to [...] removal. (more content not included)...NormalAvon HospitalMagnesium SerPl-mCncon 78-33-4044Luzyzmrdu [Mass/Vol]1.7 mg/dLNormal1.7-2.3Avon HospitalComment on above:Order Comment: Specimen Type: BLOOD SPECIMENOrdering Facility: [facility] Address:[address] [place] [address] [place], [place] [address]Performed By: #### 73339-7, 97745-8, 4201-8 ####[facility] LABORATORYCLIA [id number] [place] [address] MOODY HOSPITALUTRITIONon [id number] ID: [id number] Author: GHASSAN MARSH RD Service: Nutrition Therapy [...] a snack and sent message to [employer]. Ostomy Amount: (2150ml 09/04) Intake History: Current Nutrition Intake: 0-25% estimated energy needs Current Intake Over time: (3 days) Average Daily Calorie Intake (kcal): 306 kcal Average intake over: (via IVF) Dosing Weight: 53.7 kg (118 lb 6.2 oz) Dosing Weight Type: Current weight Estimated kilocalorie needs: 4604-0291 Calorie Calculation Method: (30-40kcals/kg) Estimated protein needs [...] Hobson DATE: September 05, 2024 TIME: 2:05 [facility] EDon [id number] [facility] ID: [id number] Author: SHERLY LEWIS RN Service: Nursing Author [...] REFERRAL (RECOMMENDATION): None Electronically Signed By: Sherly OteroAmerican Fork HospitalPTT, [facility] THERAPYon 10-03-0679cYRH Coag (PPP) [Time]90.3 sHigh23.0-32.4[facility] Comment on above:Order Comment: Specimen Type: BLOOD SPECIMENOrdering Facility: [facility] Address:[address] [place] [address] Performed By: #### PTTAC ####[facility] LABORATORYCLIA [id number] [place] [address] [place] AMERICAaPTT Coag (PPP) [Time]65.0 sHigh23.0-32.4Avo HospitalComment on above:Order Comment: Specimen Type: BLOOD SPECIMENOrdering Facility: [facility] Address:[address] [place], [place] [address]Performed By: #### PTTAC ####[facility] HOSPITALIA [id number] [place] [address] [place] AMERICARenal function 2000 panelon 30-52-4123Zsynudz [Mass/Vol]3.6 g/dLLow3.9-4.9AvoRush Memorial HospitalComment on above:Order Comment: Specimen Type: BLOOD SPECIMENOrdering Facility: [facility] Address:[address] [place], [place] [address]Performed By: #### 04469-1, 66302-9, 2571-8 ####[facility] LABORATORYCLIA [id number] [place] [address] [place] AMERICAAnion gap [Moles/Vol]11 mmol/LNormal8-15Av HospitalComment on above:Order Comment: Specimen Type: BLOOD SPECIMENOrdering Facility: [facility] Address:[address] [place], [place] [address]Performed By: #### 34280-6, 75612-9, 2571-8 ####[facility] LABORATORYIA [id number] [place] [address] [place] AMERICACalcium [Mass/Vol] 10.1 mg/dLNormal8.5-10.2Avon HospitalComment on above:Order Comment: Specimen Type: BLOOD SPECIMENOrdering Facility: [facility] Address:[address] [place], [place] [address]Performed By: #### 58690-0, 15692-3, 257-8 ####[facility] HOSPITALIA [id number] [place] [address] [place] AMERICAChloride [Moles/Vol]96 mmol/PCsp71-494Nmya HospitalComment on above:Order Comment: Specimen Type: BLOOD SPECIMENOrdering Facility: [facility] Address:[address] [place], [place] [address]Performed By: #### 01581-0, 10001-8, 2578 ####[facility] HOSPITALIA [id number] [place] [address] [place] AMERICACO2 [Moles/Vol]30 mmol/EBynxpj34-51Gwce HospitalComment on above:Order Comment: Specimen Type: BLOOD SPECIMENOrdering Facility: [facility] Address:[address] [place], [place] [address]Performed By: #### 26383-2, 39699-0, 2578 ####[facility] HOSPITALIA [id number] [place] [address] [place] AMERICACreatinine [Mass/Vol]0.66 mg/dLNormal0.58-0.96Av HospitalComment on above:Order Comment: Specimen Type: BLOOD SPECIMENOrdering Facility: [facility] Address:[address] [place], [place] [address]Performed By: #### 18515-2, 21765-8, 257-8 ####[facility] HOSPITALIA [id number] [place] [address] [place] AMERICACreatinine and Glomerular filtration rate.predicted panel (S/P/Bld)117 mL/min/1.73m???Normal>=60Av HospitalComment on above:Order Comment: Specimen Type: BLOOD SPECIMENOrdering Facility: [facility] Address:[address], [place] [address]Zkyupp Comment: Estimated Glomerular Filtration Rate (eGFR) is calculated using the 2020 CKD-EPI creatinine equation. This equation utilizes serum creatinine, sex, and age as parameters. The creatinine assay has traceable calibration to isotope dilution-mass spectrometry. Refer to KDIGO guidelines for clinical interpretation. In patients with unstable renal function, e.g. those with acute kidney injury, the eGFR may not accurately reflect actual GFR.Performed By: #### 23895-3, 48075-1, 2571-8 ####[facility] LABORATORYCLIA [id number] [place] [address] [place] AMERICAGlucose [Mass/Vol] 93 mg/lWCwwacw85-46Epzx HospitalComment on above:Order Comment: Specimen Type: BLOOD SPECIMENOrdering Facility: [facility] Address:[address], [place] [address]Rhfmnj Comment: The [place] Diabetes Association (ADA) provides guidance for cutoff [...] Standards of Medical Care in Diabetes 2016, [place] Diabetes Association. Diabetes Care. 2016.39(Suppl 1).Performed By: #### 07720-3, 44497- 6, 2571-8 ####[facility] LABORATORYCLIA [id number] [place] [address] [place] AMERICAPhosphate [Mass/Vol]5.1 mg/dLHigh 2.7-4.8Avon HospitalComment on above:Order Comment: Specimen Type: BLOOD SPECIMENOrdering Facility: [facility] Address:[address] [place] [address]Pnztupqsx By: #### 90836-8, 80740-2, 257-8 ####[facility] LABORATORYIA [id number] [place] [address] [place] AMERICAPotassium [Moles/Vol]4.0 mmol/LNormal3.7-5.1[facility] Comment on above:Order Comment: Specimen Type: BLOOD SPECIMENOrdering Facility: [facility] Address:[address] [place], [place] [address] Performed By: #### 43201-9, 79377-6, 257-8 ####[facility] HOSPITALIA [id number] [place] [address] [place] Sodium [Moles/Vol]137 mmol/BRbazek470-294Frjz HospitalComment on above:Order Comment: Specimen Type: BLOOD SPECIMENOrdering Facility: [facility] Address:[address] [place], [place] [address]Performed By: #### 82896- 9, 27019-8, 2578 ####[facility] HOSPITALIA [id number] [place] [address] [place] AMERICAUrea nitrogen [Mass/Vol]12 mg/dLNormal7-21Av HospitalComment on above:Order Comment: Specimen Type: BLOOD SPECIMENOrdering Facility: [facility] Address:[address] [place], [place] [address]Performed By: #### 78335-0, 82945-6, 257-8 ####[facility]OSPITALIA [id number] [place] [address] [place] AMERICATrigl SerPl-mCncon 47-28-9137Pbrkiudyrjgp [Mass/Vol]85 mg/dLNormal<150Av HospitalComment on above:Order Comment: Specimen Type: BLOOD SPECIMENOrdering Facility: [facility] Address:[address] [place], [place] [address]Result Comment: <150 mg/dL, Normal 150-199 mg/dL, Borderline high 200-499 mg/dL, High >499 mg/dL, Very high Reference: 1. National Cholesterol Education Program ATP III Guideline At-A-Glance Quick Desk Reference: National Heart, Lung, and Blood [place]. National Institutes of Health. 2001: NIH Publication No. 01-3305.Performed By: #### 65156-3, 81498- 6, 2570-8 ####[facility] LABORATORYCLIA [id number] [place] [address] [place] AMERICATriglyceride [Mass/Vol]on 09-05-2024 FASTING TIME9 hrsNormalAann klein forensic center HospitalComment on above:Order Comment: Specimen Type: BLOOD SPECIMENOrdering Facility: [facility] Address:[address] [place] [address]Byxeavtgd By: #### 00057-9, 84650-7, 2571-02 ####[facility] LABORATORYCLIA [id number] [place] [address] [place] AMERICABasic metabolic 2000 panelon 27-16-3709Gjzis gap [Moles/Vol]11 mmol/LNormal8-15Av HospitalComment on above:Order Comment: Specimen Type: BLOOD SPECIMENOrdering Facility: [facility] Address:[address] [place] [address]Knkvuggos By: #### 85661-9, 38003-5, , 1987-11 ####[facility] LABORATORYCLIA [id number] [place] [address] [place] AMERICACalcium [Mass/Vol]9.9 mg/dL Normal8.5-10.2Avon HospitalComment on above:Order Comment: Specimen Type: BLOOD SPECIMENOrdering Facility: [facility] Address:[address] [place] [address]Kuktzoesy By: #### 12420-9, 89704-3, , 1987-11 ####[facility] LABORATORYCLIA [id number] [place] [address] [place] AMERICAChloride [Moles/Vol]96 mmol/QVrc74-099Nkei [facility] Comment on above:Order Comment: Specimen Type: BLOOD SPECIMENOrdering Facility: [facility] Address:[address] [place] [address] Performed By: #### 55947-8, , , 1987-11 ####[facility] LABORATORYCLIA [id number] [place] [address] [place] AMERICACO2 [Moles/Vol]30 mmol/CAdgjnp00-16Asck HospitalComment on above:Order Comment: Specimen Type: BLOOD SPECIMENOrdering Facility: [facility] Address:[address] [place] [address]Xptwmyrak By: #### 98400-6, , , 1987-11 ####[facility] HOSPITALIA [id number] [place] [address] [place] Creatinine [Mass/Vol]0.66 mg/dLNormal0.58-0.96American Fork HospitalComment on above: Order Comment: Specimen Type: BLOOD SPECIMENOrdering Facility: [facility] Address:[address] [place] [address]Jmuauhmra By: #### 38872- 3, , , 1987-11 ####[facility] LABORATORYIA [id number] [place] [address] [place] AMERICACreatinine and Glomerular filtration rate.predicted panel (S/P/Bld)117 mL/min/1.73m???Normal >=60Av HospitalComment on above:Order Comment: Specimen Type: BLOOD SPECIMENOrdering Facility: [facility] Address:[address] [place] [address]Pccnbu Comment: Estimated Glomerular Filtration Rate (eGFR) is calculated using the 2020 CKD-EPI creatinine equation. This equation utilizes serum creatinine, sex, and age as parameters. The creatinine assay has traceable calibration to isotope dilution-mass spectrometry. Refer to KDIGO guidelines for clinical interpretation. In patients with unstable renal function, e.g. those with acute kidney injury, the eGFR may not accurately reflect actual GFR.Performed By: #### 55715-2, , , 1987-11 ####[facility] LABORATORYCLIA [id number] [place] [address] [place] AMERICAGlucose [Mass/Vol]90 mg/oEDmtmqh50-33Xaxv [facility] Comment on above:Order Comment: Specimen Type: BLOOD SPECIMENOrdering Facility: [facility] Address:[address] [place], [place] [address]Result Comment: The [place] Diabetes Association (ADA) provides guidance for cutoff [...] Standards of Medical Care in Diabetes 2016, [place] Diabetes Association. Diabetes Care. 2016.39(Suppl 1).Performed By: #### 19299-5, , , 1987-11 ####[facility] CENTERCLIA [id number] [place] [address] [place] AMERICAPotassium [Moles/Vol]4.0 mmol/LNormal3.7-5.1Avon HospitalComment on above:Order Comment: Specimen Type: BLOOD SPECIMENOrdering Facility: [facility] Address:[address], [place] [address]Pdgnvvggq By: #### 99422-3, , , 1987-11 ####[facility] HOSPITALIA [id number] [place] [address] [place] AMERICASodium [Moles/Vol]137 mmol/QNdzcpw298-754Apkm HospitalComment on above:Order Comment: Specimen Type: BLOOD SPECIMENOrdering Facility: [facility] Address:[address] [place], [place] [address]Performed By: #### 83503-3, , , 1987-11 ####[facility] LABORATORYCLIA [id number] [place] [address] [place] AMERICAUrea nitrogen [Mass/Vol]16 mg/dLNormal7-21Av HospitalComment on above:Order Comment: Specimen Type: BLOOD SPECIMENOrdering Facility: [facility] Address:[address] [place] [address] Performed By: #### 97346-6, , , 1987-11 ####[facility] HOSPITALIA [id number] [place] [address] [place] AMERICACBC panel Auto (Bld)on 00-49-6794Stviwoozpkk distribution width (RBC) [Ratio]14.6 %Jckive21.5-15.0Av HospitalComment on above:Order Comment: Specimen Type: BLOOD SPECIMENOrdering Facility: [facility] Address:[address] [place], [place] [address]Performed By: #### 86683-8 ####[facility] HOSPITALIA [id number] [place] [address] [place] AMERICAHematocrit (Bld) [Volume fraction]28.3 %Low36.0-46.0Av HospitalComment on above:Order Comment: Specimen Type: BLOOD SPECIMENOrdering Facility: [facility] Address:[address] [place], [place] [address]Performed By: #### 53490-0 ####[facility] HOSPITALIA [id number] [place] [address] [place] AMERICAHemoglobin (Bld) [Mass/Vol]8.9 g/dLLow11.5-15.5Avon HospitalComment on above:Order Comment: Specimen Type: BLOOD SPECIMENOrdering Facility: [facility] Address:[address] [place], [place] [address]Performed By: #### 74210-7 ####[facility] LABORATORYIA [id number] [place], [place] [address] [place] [address] (RBC) [Entitic mass]27.9 vpDzfcgy88.0-34.0Av HospitalComment on above:Order Comment: Specimen Type: BLOOD SPECIMENOrdering Facility: [facility] Address:[address] [place], [place] [address]Performed By: #### 35235-4 ####[facility] LABORATORYCLIA [id number] [place] [address] [facility] (RBC) [Mass/Vol]31.4 g/qZIfnvgm10.5-36.0Av HospitalComment on above:Order Comment: Specimen Type: BLOOD SPECIMENOrdering Facility: [facility] Address:[address] [place], [place] [address]Performed By: #### 42892-5 ####[facility] HOSPITALIA [id number] [place] [address] [facility] (RBC) [Entitic vol]88.7 yRNsmnef21.0-100.0Av HospitalComment on above:Order Comment: Specimen Type: BLOOD SPECIMENOrdering Facility: [facility] Address:[address] [place], [place] [address]Performed By: #### 88883-5 ####[facility] [id number] [place] [address] [facility] RBC (Bld) [#/Vol]10*3/uLNormal<0.01Av HospitalComment on above:Order Comment: Specimen Type: BLOOD SPECIMENOrdering Facility: [facility] Address:[address] [place], [place] [address]Performed By: #### 98497-9 ####[facility] LABORATORYIA [id number] [place] [address] [facility]IME[facility]ONE HOSPITALPlatelet mean volume (Bld) [Entitic vol]10.4 fLNormal9.0-12.7 Lotus HospitalComment on above:Order Comment: Specimen Type: BLOOD SPECIMENOrdering Facility: [facility] Address:[address] [place] [address]Twgpntwml By: #### 75159-9 ####[facility] LABORATORYCLIA [id number] [place] [address] [facility] JOJO Platelets (Bld) [#/Vol]427 10*3/jSLimc681-473Hcnr HospitalComment on above:Order Comment: Specimen Type: BLOOD SPECIMENOrdering Facility: [facility] Address:[address] [place], [place] [address]Performed By: #### 60697- 2 ####[facility] LABORATORYCLIA [id number] [place] [address] [facility]-LIMESTONE HOSPITALRBC (Bld) [#/Vol]3.19 10*6/uLLow3.90-5.20Avon HospitalComment on above:Order Comment: Specimen Type: BLOOD SPECIMENOrdering Facility: [facility] Address:[address] [place], [place] [address]Performed By: #### 64891-2 ####[facility] LABORATORYCLIA [id number] [place] [address] [facility] AMERICAWBC (d) [#/Vol] 5.17 10*3/uLNormal3.70-11.00Avon HospitalComment on above:Order Comment: Specimen Type: BLOOD SPECIMENOrdering Facility: [facility] Address:[address] [place], [place] [address]Performed By: #### 84931-9 ####[facility] LABORATORYCLIA [id number] [place] [address] [facility] HOSPITALCRP SerPl-mCncon 00-77-4112GXD [Mass/Vol]2.0 mg/dLHigh <0.9Avon HospitalComment on above:Order Comment: Specimen Type: BLOOD SPECIMENOrdering Facility: [facility] Address:[address] [place], [place] [address]Performed By: #### 77195-6, 83768-4, 73877-1, 1987- ####[facility]OSPITALIA [id number] [place] [address] [place] AMERICAHepatic function 2000 panelon 05-21-0614Uyimuhs [Mass/Vol]3.6 g/dLLow3.9-4.9Avon HospitalComment on above:Order Comment: Specimen Type: BLOOD SPECIMENOrdering Facility: [facility] Address:[address] [place], [place] [address]Performed By: #### 86245-0, , , 1987-11 ####[facility] HOSPITALIA [id number] [place] [address] [place] AMERICAALP [Catalytic activity/Vol] 236 U/SXeor37-941Fcep HospitalComment on above:Order Comment: Specimen Type: BLOOD SPECIMENOrdering Facility: [facility] Address:[address] [place], [place] [address]Performed By: #### 29401-7, , , 1987-11 ####[facility] HOSPITALIA [id number] [place] [address] [place] AMERICAALT [Catalytic activity/Vol]20 U/LNormal7-38Av HospitalComment on above:Order Comment: Specimen Type: BLOOD SPECIMENOrdering Facility: [facility] Address:[address] [place], [place] [address]Performed By: #### 74440-7, , , 1987-11 ####[facility] HOSPITALIA [id number] [place] [address] [place] AMERICAAST [Catalytic activity/Vol]18 U/PQzobds83-00Muyq Hospital Comment on above:Order Comment: Specimen Type: BLOOD SPECIMENOrdering Facility: [facility] Address:[address] [place] [address] Performed By: #### 38057-9, , , 1987-11 ####[facility] LABORATORYIA [id number] [place] [address] [place] AMERICABilirubin [Mass/Vol]0.2 mg/dLNormal0.2-1.3Avon HospitalComment on above:Order Comment: Specimen Type: BLOOD SPECIMENOrdering Facility: [facility] Address:[address] [place] [address] Performed By: #### 15140-8, , , 1987-11 ####[facility]PITALIA [id number] [place] [address] [place] AMERICABilirubin.conjugated [Mass/Vol]0.1 mg/dLNormal<0.3[facility] Comment on above:Order Comment: Specimen Type: BLOOD SPECIMENOrdering Facility: [facility] Address:[address] [place] [address] Performed By: #### 06342-0, , , 1987-11 ####[facility]OSPITALIA [id number] [place] [address] [place] AMERICAProtein [Mass/Vol]6.8 g/dLNormal6.3-8.0Avon HospitalComment on above:Order Comment: Specimen Type: BLOOD SPECIMENOrdering Facility: [facility] Address:[address] [place] [address] [place] [id number] By: #### 32243-5, , , 1987-11 ####[facility]PITALIA [id number] [place] [address] [place] Magnesium SerPl-mCncon 97-71-4494Zbvlouhqk [Mass/Vol]1.9 mg/dLNormal1.7-2.3Avon HospitalComment on above:Order Comment: Specimen Type: BLOOD SPECIMENOrdering Facility: [facility] Address:[address] [place], [place] [address]Performed By: #### 73809-9, , , 1987-11 ####[facility] HOSPITALIA [id number] [place] [address] [place] AMERICANUTRITIONon 92-48-6882THUCNHMRRVGO ID: [id number] Author: GOSIA BAIG RD Service: Nutrition Therapy [...] Hold: Plan for Reece tomorrow; Please run W3cnboq @ 125mL/hr or even higher 145mL/hr d/t [...] Weight Type: Admit weight Estimated kilocalorie needs: 4533-9517 Calorie Calculation Method: (30-40kcals/kg) Estimated protein needs [...] (more content not included)...NormalAvon HospitalPTT, ANTICOAGULANT THERAPYon 84-63-9021dFLY Coag (PPP) [Time]60.9 sHigh23.0-32.4Avon HospitalComment on above:Order Comment: Specimen Type: BLOOD SPECIMENOrdering Facility: [facility] Address:[address] [place], [place] [address]Performed By: #### PTTAC ####[facility]OSPITALIA [id number] [place] [address] [place] AMERICAaPTT Coag (PPP) [Time]65.0 sHigh23.0-32.4Avon HospitalComment on above:Order Comment: Specimen Type: BLOOD SPECIMENOrdering Facility: [facility] Address:[address] [place], [place] [address]Performed By: #### PTTAC ####[facility] [id number] [place] [address] [place] AMERICAPhosphate SerPl-mCncon 58-62-5037Yfspcveod [Mass/Vol]6.0 mg/dL High2.7-4.8Avon HospitalComment on above:Order Comment: Specimen Type: BLOOD SPECIMENOrdering Facility: [facility] Address:[address] [place], [place] [address]Performed By: #### 2777-1 ####[facility] [id number] [place] [address] [place] TOXICOLOGY SCREEN, ROUTINE URINEon 13-33-5611Mlihvhgwyvpb Confirm (U) [Mass/Vol] NegativeNormalNegativeAvon HospitalComment on above:Order Comment: Specimen Type: URINE SPECIMENOrdering Facility: [facility] Address:[address] [place] [address] Comment: Cutoff threshold at 1000 ng/mL. Performed By: #### UTOX2 ####[facility] HOSPITALIA [id number] [place] [address] [place] AMERICABARBITURATES, URINE NegativeNormalNegativeAvon HospitalComment on above:Order Comment: Specimen Type: URINE SPECIMENOrdering Facility: [facility] Address:[address] [place], [place] [address]Result Comment: Cutoff threshold at 200 ng/mL. Performed By: #### UTOX2 ####[facility] [id number] [place] [address] [place] AMERICABENZODIAZEPINES, UR PositiveAbnormalNegativeAvon HospitalComment on above:Order Comment: Specimen Type: URINE SPECIMENOrdering Facility: [facility] Address:[address] [place], [place] [address]Result Comment: Cutoff threshold at 200 ng/mL. Performed By: #### UTOX2 ####[facility] HOSPITALIA [id number] [place] [address] [place] AMERICACannabinoids Screen Ql (U)PositiveAbnormalNegativeAvon HospitalComment on above:Order Comment: Specimen Type: URINE SPECIMENOrdering Facility: [facility] Address:[address] [place], [place] [address]Result Comment: Cutoff threshold at 50 ng/mL.Performed By: #### UTOX2 ####[facility] LABORATORYIA [id number] [place] [address] [place] Cocaine Ql (U)NegativeNormalNegativeAvon HospitalComment on above:Order Comment: Specimen Type: URINE SPECIMENOrdering Facility: [facility] Address:[address] [place], [place] [address]Result Comment: Cutoff threshold at 300 ng/mL.Performed By: #### [email or web address] ####[facility] [id number] [place] [address] [place] Ethanol (U) [Mass/Vol]<11Normal<11Avon HospitalComment on above:Order Comment: Specimen Type: URINE SPECIMENOrdering Facility: [facility] Address:[address] [place], [place] [address]Performed By: #### [email or web address] ####[facility] [id number] [place] [address] [place] AMERICAOpiates Screen Ql (U)NegativeNormalNegativeAvon Hospital Comment on above:Order Comment: Specimen Type: URINE SPECIMENOrdering Facility: [facility] Address:[address] [place], [place] [address]Result Comment: Cutoff threshold at 300 ng/mL.Performed By: #### [email or web address] ####[facility] [id number] [place] [address] [place]oxyCODONE cutoff Screen (U) [Mass/Vol]PositiveAbnormal NegativeAvon HospitalComment on above:Order Comment: Specimen Type: URINE SPECIMENOrdering Facility: [facility] Address:[address] [place], [place] [address]Result Comment: Cutoff threshold at 100 ng/mL.Performed By: #### [email or web address] ####[facility] [id number] [place] [address] [place] OF AMERICAPhencyclidine Ql (U)NegativeNormal NegativeAvon HospitalComment on above:Order Comment: Specimen Type: URINE SPECIMENOrdering Facility: [facility] Address:[address] [place], [place] [address]Result Comment: Cutoff threshold at 25 ng/mL.Performed By: #### UTOX2 ####[facility] LABORATORYIA [id number] [place] [address] [facility]OSPITALCB panel Auto (Bld)on 09-03-2024 Erythrocyte distribution width (RBC) [Ratio]14.9 %Zgkhcr72.5-15.0Av Hospital Comment on above:Order Comment: Specimen Type: BLOOD SPECIMENOrdering Facility: [facility] Address:[address] [place] [address] Performed By: #### 75852-5 ####[facility]PITALIA [id number] [place] [address] [facility] HOSPITALHematocrit (Bld) [Volume fraction]30.1 %Low36.0-46.0Av HospitalComment on above:Order Comment: Specimen Type: BLOOD SPECIMENOrdering Facility: [facility] Address:[address] [place], [place] [address]Performed By: #### 08514-1 ####[facility] [id number] [place] [address] [facility] HOSPITALHemoglobin (Bld) [Mass/Vol]9.3 g/dLLow11.5-15.5Avo HospitalComment on above:Order Comment: Specimen Type: BLOOD SPECIMENOrdering Facility: [facility] Address:[address] [place], [place] [address]Performed By: #### 90547-7 ####[facility] HOSPITALIA [id number] [place] [address] [facility] (RBC) [Entitic mass]27.4 esMnkuid07.0-34.0Av HospitalComment on above:Order Comment: Specimen Type: BLOOD SPECIMENOrdering Facility: [facility] Address:[address] [place], [place] [address]Performed By: #### 42690-7 ####[facility] [id number] [place] [address] [place] AMERICAMCHC (RBC) [Mass/Vol]30.9 g/tZHoelou99.5-36.0Av HospitalComment on above:Order Comment: Specimen Type: BLOOD SPECIMENOrdering Facility: [facility] Address:[address] [place], [place] [address]Performed By: #### 18483-0 ####[facility] LABORATORYCLIA [id number] [place] [address] [facility] HOSPITALMCV (RBC) [Entitic vol]88.8 bLVaolow99.0-100.0Av HospitalComment on above:Order Comment: Specimen Type: BLOOD SPECIMENOrdering Facility: [facility] Address:[address] [place], [place] [address]Performed By: #### 85536-1 ####[facility] LABORATORYIA [id number] [place] [address] [facility]PITALucleated RBC (Bld) [#/Vol]10*3/uLNormal<0.01Av HospitalComment on above:Order Comment: Specimen Type: BLOOD SPECIMENOrdering Facility: [facility] Address:[address] [place], [place] [address]Performed By: #### 10154-5 ####[facility] HOSPITALIA [id number] [place] [address] [facility] AMERICAPlatelet mean volume (Bld) [Entitic vol]10.3 fLNormal9.0-12.7Avon HospitalComment on above: Order Comment: Specimen Type: BLOOD SPECIMENOrdering Facility: [facility] Address:[address] [place], [place] [address]Performed By: #### 36388- 2 ####[facility] HOSPITALIA [id number] [place] [address] [place] AMERICAPlatelets (Bld) [#/Vol]456 10*3/wKWsak432-424 Lotus HospitalComment on above:Order Comment: Specimen Type: BLOOD SPECIMENOrdering Facility: [facility] Address:[address] [place], [place] [address]Performed By: #### 71944-1 ####[facility] LABORATORYCLIA [id number] [place] [address] [facility] HOSPITALRB (Bld) [#/Vol]3.39 10*6/uLLow3.90-5.20Seabrook HospitalComment on above:Order Comment: Specimen Type: BLOOD SPECIMENOrdering Facility: [facility] Address:[address] [place], [place] [address]Performed By: #### 65901- 2 ####[facility] LABORATORYCLIA [id number] [place] [address] [facility] [#/Vol]7.73 10*3/uLNormal3.70-11.00 Seabrook HospitalComment on above:Order Comment: Specimen Type: BLOOD SPECIMENOrdering Facility: [facility] Address:[address] [place], [place] [address]Performed By: #### 59123-3 ####[facility]OSPITALIA [id number] [place] [address] [facility] CONSULT PROGon [id number] PROGHNO ID: [id number] Author: SHERLY LORENZO DO Service: Hematology/Oncology Author Type: Physician Type: Consult Progress Note Filed: 09/03/2024 11:01 Note Text: Heme Patient is iron deficient, will give Ferrlecit while here in the hospital. Note that IR has been consulted [facility] place [facility] Magnesium SerPl-mCncon 10-42-1291Ioarfpkfk [Mass/Vol]2.0 mg/dLNormal1.7-2.3Avon HospitalComment on above:Order Comment: Specimen Type: BLOOD SPECIMENOrdering Facility: [facility] Address:[address] [place], [place] [address]Performed By: #### 16558-4, 50999-1 ####[facility] LABORATORYIA [id number] [place] [address] [place] NUTRITIONon [id number] ID: [id number] Author: GHASSAN MARSH RD Service: Nutrition Therapy Author Type: Registered Dietitian Type: Nutrition Filed: 09/03/2024 08:59 Note Text: NUTRITION BRIEF NOTE SERVICE DATE: 09/03/2024 Care Plan: Change diet to GI soft, Gluten Controlles, Lacotse Controlled, 10g sugar per recent admission at [facility] Supplements: Ensure Max, Drip Drop Parenteral [...] History: RD currently offsite at [facility]. Patient with recent d/c from [facility]. Plan for IR this admission for Reece placement. Per Dr. Dwayne hoffmann to use current PICC for TPN. Orders written and pended. Full assessment to follow. MNT Billing: $ Routine Care : 1-15 minutes SIGNATURE: Ghassan Marsh RD, LD DATE: 09/03/2024 TIME: 8:57 AMNormalAmerican Fork HospitalPTT, ANTICOAGULANT THERAPYon 98-13-6964bMQT Coag (PPP) [Time]32.8 sHigh23.0-32.4[facility] [facility] HospitalComment on above:Order Comment: Specimen Type: BLOOD SPECIMENOrdering Facility: [facility] Address:[address] [place], [place] [address]Performed By: #### PTTAC ####[facility] LABORATORYCLIA [id number] [address]ETaPTT Coag (PPP) [Time]34.5 sHigh23.0-32.4[facility]on [facility] Comment on above:Order Comment: Specimen Type: BLOOD SPECIMENOrdering Facility: [facility] Address:[address] [place] [address] Performed By: #### PTTAC ####[facility] LABORATORYIA [id number] [place] [address] [place] AMERICARenal function 2000 panelon 94-42-5990Divuaib [Mass/Vol]3.8 g/dLLow3.9-4.9Avon HospitalComment on above:Order Comment: Specimen Type: BLOOD SPECIMENOrdering Facility: [facility] Address:[address] [place], [place] [address]Performed By: #### 48584-3, 97307-6 ####[facility] LABORATORYCLIA [id number] [place] [address] [place] AMERICAAnion gap [Moles/Vol]15 mmol/LNormal8-15Avon HospitalComment on above:Order Comment: Specimen Type: BLOOD SPECIMENOrdering Facility: [facility] Address:[address] [place], [place] [address]Performed By: #### 15523-7, 09776-0 ####[facility]OSPITALIA [id number] [place] [address] [place] AMERICACalcium [Mass/Vol]10.5 mg/dLHigh8.5-10.2Avon HospitalComment on above:Order Comment: Specimen Type: BLOOD SPECIMENOrdering Facility: [facility] Address:[address] [place], [place] [address]Performed By: #### 71291-5, 43330-0 ####[facility] LABORATORYIA [id number] [place] [address] [place] AMERICAChloride [Moles/Vol]95 mmol/L Xqx04-482Fkxc HospitalComment on above:Order Comment: Specimen Type: BLOOD SPECIMENOrdering Facility: [facility] Address:[address] [place], [place] [address]Performed By: #### 67653-5, 90489-9 ####[facility]ORATORYIA [id number] [place] [address] [place] AMERICACO2 [Moles/Vol]30 mmol/PNevoor85-07Xtfp HospitalComment on above:Order Comment: Specimen Type: BLOOD SPECIMENOrdering Facility: [facility] Address:[address] [place], [place] [address]Cnqlqgivn By: #### 88238-9, 27359-0 ####[facility] HOSPITALIA [id number] [place] [address] [place] AMERICACreatinine [Mass/Vol]0.63 mg/dLNormal0.58-0.96American Fork HospitalComment on above:Order Comment: Specimen Type: BLOOD SPECIMENOrdering Facility: [facility] Address:[address] [place], [place] [address]Performed By: #### 62555-1, 09352-6 ####[facility] HOSPITALIA [id number] [place] [address] [place] AMERICACreatinine and Glomerular filtration rate.predicted panel (S/P/Bld)118 mL/min/1.73m???Normal>=60Av HospitalComment on above:Order Comment: Specimen Type: BLOOD SPECIMENOrdering Facility: [facility] Address:[address] [place], [place] [address]Result Comment: Estimated Glomerular Filtration Rate (eGFR) is [...] not accurately reflect actual GFR.Performed By: #### 57605-9, 15452-3 ####[facility] LABORATORYIA [id number] [place] [address] [place] AMERICAGlucose [Mass/Vol]91 mg/iLPdvobg65-39Ufkv Hospital Comment on above:Order Comment: Specimen Type: BLOOD SPECIMENOrdering Facility: [facility] Address:[address] [place] [address]Ayyrsa Comment: The Citizen Of [place] Diabetes Association (ADA) provides guidance for cutoff [...] Standards of Medical Care in Diabetes 2016, Citizen Of [place] Diabetes Association. Diabetes Care. 2016.39(Suppl 1).Performed By: #### 38335-1, 72333-2 ####[facility]OSPITALIA [id number] [place] [address] [place] AMERICAPhosphate [Mass/Vol]6.6 mg/dLHigh2.7-4.8Avon HospitalComment on above:Order Comment: Specimen Type: BLOOD SPECIMENOrdering Facility: [facility] Address:[address] [place], [place] [address]Performed By: #### 82304-3, 41480-2 ####[facility] HOSPITALIA [id number] [place] [address] [place] Potassium [Moles/Vol]4.2 mmol/LNormal3.7-5.1Avon HospitalComment on above:Order Comment: Specimen Type: BLOOD SPECIMENOrdering Facility: [facility] Address:[address] [place], [place] [address]Performed By: #### 00320- 9, 30320-8 ####[facility]PITALIA [id number] [place] [address] [place] AMERICASodium [Moles/Vol]140 mmol/LNormal 136-144Av HospitalComment on above:Order Comment: Specimen Type: BLOOD SPECIMENOrdering Facility: [facility] Address:[address] [place], [place] [address]Performed By: #### 48485-8, 77465-0 ####[facility]PITALIA [id number] [place] [address] [place] AMERICAUrea nitrogen [Mass/Vol]14 mg/dLNormal7-21Avon HospitalComment on above:Order Comment: Specimen Type: BLOOD SPECIMENOrdering Facility: [facility] Address:[address] [place] [address] Performed By: #### 05539-5, 75197-7 ####[facility]OSPITALIA [id number] [place] [address] [place] AMERICAB- HCG SerPl-aCncon 44-06-2938FMB.beta subunit Qnm[IU]/mLNormal<5.0Av Hospital Comment on above:Order Comment: Specimen Type: BLOOD SPECIMENOrdering Facility: [facility] Address:[address] [place], [place] [address]Result Comment: NegativePerformed By: #### 50666-2 ####[facility]OSPITALIA [id number] [place] [address] [place] [facility]ITALCB W Auto Differential panel (Bld)on 25-57-9795Fphfxqrje (Bld) [#/Vol]0.05 10*3/uL Normal<0.11Avon HospitalComment on above:Order Comment: Specimen Type: BLOOD SPECIMENOrdering Facility: [facility] Address:[address] [place], [place] [address]Performed By: #### 23003-6 ####[facility]ITALIA [id number] [place] [address] [place] Basophils/100 WBC (Bld)0.5 %NormalAv HospitalComment on above:Order Comment: Specimen Type: BLOOD SPECIMENOrdering Facility: [facility] Address:[address] [place], [place] [address]Performed By: #### 15588-3 ####[facility]OSPITALIA [id number] [place] [address] [place] AMERICADifferential cell count method Nom (Bld)AutoNormalAvon HospitalComment on above:Order Comment: Specimen Type: BLOOD SPECIMENOrdering Facility: [facility] Address:[address] [place], [place] [address]Performed By: #### 03830-4 ####[facility]ITALIA [id number] [place] [address] [place] AMERICAEosinophils (Bld) [#/Vol]0.20 10*3/uLNormal<0.46Av HospitalComment on above:Order Comment: Specimen Type: BLOOD SPECIMENOrdering Facility: [facility] Address:[address] [place], [place] [address]Performed By: #### 15154-5 ####[facility]ITALIA [id number] [place] [address] [place] AMERICAEosinophils/100 WBC (Bld)2.0 %NormalAv HospitalComment on above:Order Comment: Specimen Type: BLOOD SPECIMENOrdering Facility: [facility] Address:[address] [place] [address] Performed By: #### 01711-9 ####[facility] [id number] [place] [address] [place] AMERICAErythrocyte distribution width (RBC) [Ratio]15.0 %Ygayqg74.5-15.0Av HospitalComment on above:Order Comment: Specimen Type: BLOOD SPECIMENOrdering Facility: [facility] Address:[address] [place], [place] [address]Performed By: #### 43373-3 ####[facility] [id number] [place] [address] [place] AMERICAHematocrit (Bld) [Volume fraction] 26.5 %Low36.0-46.0Av HospitalComment on above:Order Comment: Specimen Type: BLOOD SPECIMENOrdering Facility: [facility] Address:[address] [place], [place] [address]Performed By: #### 08438-0 ####[facility] [id number] [place] [address] [place] AMERICAHemoglobin (Bld) [Mass/Vol]8.6 g/dLLow11.5-15.5Avon Hospital Comment on above:Order Comment: Specimen Type: BLOOD SPECIMENOrdering Facility: [facility] Address:[address] [place] [address] Performed By: #### 89803-1 ####[facility]OSPITALIA [id number] [place] [address] [place] AMERICAImmature granulocytes (Bld) [#/Vol]0.05 10*3/uLNormal<0.10Avon HospitalComment on above: Order Comment: Specimen Type: BLOOD SPECIMENOrdering Facility: [facility] Address:[address] [place], [place] [address]Performed By: #### 78589- 8 ####[facility]OSPITALIA [id number] [place] [address] [place] AMERICAImmature granulocytes/100 WBC (Bld)0.5 %Normal Seabrook HospitalComment on above:Order Comment: Specimen Type: BLOOD SPECIMENOrdering Facility: [facility] Address:[address] [place], [place] [address]Performed By: #### 38263-8 ####[facility]ITALIA [id number] [place] [address] [place] Lymphocytes (Bld) [#/Vol]1.61 10*3/uLNormal1.00-4.00Av HospitalComment on above:Order Comment: Specimen Type: BLOOD SPECIMENOrdering Facility: [facility] Address:[address] [place], [place] [address]Performed By: #### 66223-1 ####[facility]ITALIA [id number] [place] [address] [place] AMERICALymphocytes/100 WBC (Bld)16.0 % NormalSeabrook HospitalComment on above:Order Comment: Specimen Type: BLOOD SPECIMENOrdering Facility: [facility] Address:[address] [place], [place] [address]Performed By: #### 98702-1 ####[facility]PITALIA [id number] [place] [address] [place] AMERICAMCH (RBC) [Entitic mass]28.6 iiYxavtm63.0-34.0Seabrook HospitalComment on above:Order Comment: Specimen Type: BLOOD SPECIMENOrdering Facility: [facility] Address:[address] [place], [place] [address]Performed By: #### 57209- 8 ####[facility] LABORATORYCLIA [id number] [place] [address] [place] [facility] HOSPITALMCHC (RBC) [Mass/Vol]32.5 g/aKPqrnvl01.5-36.0 [facility]ok HospitalComment on above:Order Comment: Specimen Type: BLOOD SPECIMENOrdering Facility: [facility] Address:[address] [place], [place] [address]Performed By: #### 95847-1 ####[facility]PITALIA [id number] [place] [address] [place] [facility]AL HOSPITALMCV (RBC) [Entitic vol]88.0 fRDkhjma09.0-100.0Av HospitalComment on above:Order Comment: Specimen Type: BLOOD SPECIMENOrdering Facility: [facility] Address:[address] [place], [place] [address]Performed By: #### 50205- 8 ####[facility] HOSPITALIA [id number] [place], [place] [address] [place] [address] OF [facility] GENERAL HOSPITALMonocytes (Bld) [#/Vol]0.74 10*3/uLNormal<0.87 [facility]rook HospitalComment on above:Order Comment: Specimen Type: BLOOD SPECIMENOrdering Facility: [facility] Address:[address] [place], [place] [address]Performed By: #### 49125-3 ####[facility] LABORATORYIA [id number] [place] [id number] [facility] Monocytes/100 WBC (Bld)7.4 %NormalAv HospitalComment on above:Order Comment: Specimen Type: BLOOD SPECIMENOrdering Facility: [facility] Address:[address] [place], [place] [address]Performed By: #### 27926-3 ####[facility] LABORATORYCLIA [id number] [place] [address] [place] AMERICANeutrophils (Bld) [#/Vol]7.39 10*3/uLNormal1.45-7.50Av HospitalComment on above:Order Comment: Specimen Type: BLOOD SPECIMENOrdering Facility: [facility] Address:[address] [place], [place] [address]Performed By: #### 46418-3 ####[facility]PITALIA [id number] [place] [address] [place] AMERICANeutrophils/100 WBC (Bld)73.6 %NormalAv HospitalComment on above:Order Comment: Specimen Type: BLOOD SPECIMENOrdering Facility: [facility] Address:[address] [place], [place] [address]Performed By: #### 50922-5 ####[facility] [id number] [place] [address] [place] AMERICANucleated RBC (Bld) [#/Vol]10*3/uLNormal<0.01Av Hospital Comment on above:Order Comment: Specimen Type: BLOOD SPECIMENOrdering Facility: [facility] Address:[address] [place] [address] Performed By: #### 51801-7 ####[facility] [id number] [place] [address] [place] AMERICANucleated RBC/100 WBC (Bld) [Ratio]0.0 /100 WBCNormalAvon HospitalComment on above:Order Comment: Specimen Type: BLOOD SPECIMENOrdering Facility: [facility] Address:[address] [place], [place] [address]Performed By: #### 49743-8 ####[facility] [id number] [place] [address] [place] AMERICAPlatelet mean volume (Bld) [Entitic vol]10.4 fLNormal 9.0-12.7Avon HospitalComment on above:Order Comment: Specimen Type: BLOOD SPECIMENOrdering Facility: [facility] Address:[address] [place], [place] [address]Performed By: #### 13212-6 ####[facility] LABORATORYCLIA [id number] [place] [address] [facility] Platelets (Bld) [#/Vol]442 10*3/xFSsnj737-113Slbb HospitalComment on above:Order Comment: Specimen Type: BLOOD SPECIMENOrdering Facility: [facility] Address:[address] [place], [place] [address]Performed By: #### 61028- 8 ####[facility] LABORATORYCLIA [id number] [place] [address] [facility] HOSPITALRBC (d) [#/Vol]3.01 10*6/uLLow3.90-5.20Avon HospitalComment on above:Order Comment: Specimen Type: BLOOD SPECIMENOrdering Facility: [facility] Address:[address] [place], [place] [address]Performed By: #### 28410-8 ####[facility] LABORATORYIA [id number] [place] [address] [facility] HOSPITALWBC (d) [#/Vol] 10.04 10*3/uLNormal3.70-11.00Av HospitalComment on above:Order Comment: Specimen Type: BLOOD SPECIMENOrdering Facility: [facility] Address:[address] [place], [place] [address]Performed By: #### 93184-1 ####[facility] LABORATORYIA [id number] [place] [address] [facility] HOSPITALCONSULTon [id number] ID: [id number] Author: SHERLY LORENZO DO Service: Hematology/Oncology Author [...] LUE PICC with nightly TPN. Today her [facility] nurse and boyfriend were having difficulty [...] hospital. Medication and Non-Pharm (more content not included)...[facility] Comprehensive metabolic 2000 panelon 25-41-6093Mhhtdfm [Mass/Vol]3.3 g/dLLow 3.9-4.9Avon HospitalComment on above:Order Comment: Specimen Type: BLOOD SPECIMENOrdering Facility: [facility] Address:[address] [place], [place] [address]Performed By: #### 56258-9, , 2776-07 ####[facility] LABORATORYCLIA [id number] [place] [address] [place] AMERICAALP [Catalytic activity/Vol]211 U/PGfnu23-835Ox[facility] Comment on above:Order Comment: Specimen Type: BLOOD SPECIMENOrdering Facility: [facility] Address:[address] [place], [place] [address] Performed By: #### 16291-2, , 2776-07 ####[facility] LABORATORYCLIA [id number] [place] [address] [place] AMERICAALT [Catalytic activity/Vol]31 U/LNormal7-38Av HospitalComment on above:Order Comment: Specimen Type: BLOOD SPECIMENOrdering Facility: [facility] Address:[address] [place], [place] [address]Performed By: #### 91516- 8, , 2776-07 ####[facility] LABORATORYCLIA [id number] [place] [address] [place] AMERICAAnion gap [Moles/Vol]15 mmol/LNormal8-15Av HospitalComment on above:Order Comment: Specimen Type: BLOOD SPECIMENOrdering Facility: [facility] Address:[address] [place], [place] [address]Performed By: #### 78093-2, , 2776-07 ####[facility] HOSPITALIA [id number] [place] [address] [place] AMERICAAST [Catalytic activity/Vol]31 U/PEtvypv39-25Ptef HospitalComment on above:Order Comment: Specimen Type: BLOOD SPECIMENOrdering Facility: [facility] Address:[address] [place], [place] [address]Performed By: #### 94492-7, , 2776-07 ####[facility] HOSPITALIA [id number] [place] [address] [place] AMERICABilirubin [Mass/Vol]0.2 mg/dLNormal0.2-1.3[facility] HospitalComment on above:Order Comment: Specimen Type: BLOOD SPECIMENOrdering Facility: [facility] Address:[address] [place], [place] [id number] Performed By: #### 11089-9, , 2776-07 ####[facility]ITALIA [id number] [place] [address] [place] Calcium [Mass/Vol]9.9 mg/dLNormal8.5-10.2Avon HospitalComment on above:Order Comment: Specimen Type: BLOOD SPECIMENOrdering Facility: [facility] Address:[address] [place] [id number] By: #### 17011- 8, , 2776-07 ####[facility]ITALIA [id number] [place] [address] [place] AMERICAChloride [Moles/Vol]96 mmol/L Dhm16-277Toms HospitalComment on above:Order Comment: Specimen Type: BLOOD SPECIMENOrdering Facility: [facility] Address:[address] [place], [place] [id number] By: #### 64314-5, , 2776-07 ####[facility] LABORATORYCLIA [id number] [place] [address] [place] AMERICACO2 [Moles/Vol]25 mmol/STctlgl40-43Jbxv HospitalComment on above:Order Comment: Specimen Type: BLOOD SPECIMENOrdering Facility: [facility] Address:[address] [place], [place] [address]Performed By: #### 09442-5, , 2776-07 ####[facility] CENTERCLIA [id number] [place] [address] [place] AMERICACreatinine [Mass/Vol]0.54 mg/dLLow0.58-0.96Av HospitalComment on above:Order Comment: Specimen Type: BLOOD SPECIMENOrdering Facility: [facility] Address:[address] [place], [place] [address]Performed By: #### 35775-3, , 2776-07 ####[facility] HOSPITALIA [id number] [place] [address] [place] AMERICACreatinine and Glomerular filtration rate.predicted panel (S/P/Bld)123 mL/min/1.73m???Normal>=60Av HospitalComment on above:Order Comment: Specimen Type: BLOOD SPECIMENOrdering Facility: [facility] Address:[address] [place], [place] [address]Result Comment: Estimated Glomerular Filtration Rate (eGFR) is calculated using the 2020 CKD-EPI creatinine equation. This equation utilizes serum creatinine, sex, and age as parameters. The creatinine assay has traceable calibration to isotope dilution-mass spectrometry. Refer to KDIGO guidelines for clinical interpretation. In patients with unstable renal function, e.g. those with acute kidney injury, the eGFR may not accurately reflect actual GFR.Performed By: #### 18443-4, , 2776-07 ####[facility] LABORATORYCLIA [id number] [place] [address] [place] AMERICAGlucose [Mass/Vol] 98 mg/wRGqvyla12-24Xhrd HospitalComment on above:Order Comment: Specimen Type: BLOOD SPECIMENOrdering Facility: [facility] Address:[address] [place], [place] [address]Result Comment: The [place] Diabetes Association (ADA) provides guidance for cutoff [...] Standards of Medical Care in Diabetes 2016, [place] Diabetes Association. Diabetes Care. 2016.39(Suppl 1).Performed By: #### 03539-6, 18385, 2776-07 ####[facility] LABORATORYCLIA [id number] [place] [address] [place] AMERICAPotassium [Moles/Vol]4.2 mmol/L Normal3.7-5.1Avon HospitalComment on above:Order Comment: Specimen Type: BLOOD SPECIMENOrdering Facility: [facility] Address:[address] [place] [address]Fksxtqdbj By: #### 07316-5, , 2776-07 ####[facility] LABORATORYCLIA [id number] [place] [address] [place] AMERICAProtein [Mass/Vol]6.8 g/dLNormal6.3-8.0Av HospitalComment on above:Order Comment: Specimen Type: BLOOD SPECIMENOrdering Facility: [facility] Address:[address] [place], [place] [address]Performed By: #### 03718-3, , 2776-07 ####[facility] LABORATORYCLIA [id number] [place] [address] [place] AMERICASodium [Moles/Vol] 136 mmol/CJhkydc713-101Tyfp HospitalComment on above:Order Comment: Specimen Type: BLOOD SPECIMENOrdering Facility: [facility] Address:[address] [place], [place] [address]Zidpdndcz By: #### 78085-4, , 2776-07 ####[facility] LABORATORYCLIA [id number] [place] [address] [place] OF AMERICAUrea nitrogen [Mass/Vol]18 mg/dLNormal7-21Av HospitalComment on above:Order Comment: Specimen Type: BLOOD SPECIMENOrdering Facility: [facility] Address:[address]ITALH[address] [place], [place] [address]Bxueqlmgy By: #### 98080-6, , 2776-07 ####[facility] LABORATORYCLIA [id number] [place] [address] [place] AMERICAED PROV NOTEon 56-98-5160XR PROV NOTEHNO ID: [id number] Author: RUFINA PINZON MD Service: Emergency Medicine [...] Patient states that she was admitted to [facility] for bowel obstruction where she received surgery and had a colostomy placed. She originally had a PICC line placed in her right arm and while inpatient, developed a DVT in the right arm. The PICC line was pulled and a new PICC line was placed in the left arm. Patient states that she [facility], and has been [...] breath. History provided by: Patient and spouse lever tender used: No PAST MEDICAL HISTORY Diagnosis Date [...] (more content not included)... NormalAvon HospitalFerritin SerPl-mCncon 06-82-6937Agjyqbys [Mass/Vol]524.1 ng/dYEtgp05.7-205.1Avon HospitalComment on above:Order Comment: Specimen Type: BLOOD SPECIMENOrdering Facility: [facility] Address:[address] [place] [address]Avlptykyn By: #### 75730-8, 2276-4 ####[facility] LABORATORYCLIA [id number] [place] [address] [place] AMERICAHISTORY PHYSICALon 70-66-8817LKWDJEV PHYSICALHNO ID: [id number] Author: KEYSHAWN STONE APRN.DIRECTOR OF RESEARCH AND DEVELOPMENT Service: Hospital Medicine Author Type: Nurse Practitioner Type: H&P Filed: 09/02/2024 04:25 Note Text: DEPARTMENT OF HOSPITAL MEDICINE HISTORY AND PHYSICAL EXAM SERVICE DATE: 09/02/2024 SERVICE TIME: 3:40 AM Primary Care Physician: No primary care provider on file. 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 Patient recently discharged on 08/30/24 from . She was discharged home with LUE PICC with nightly TPN. Today her [facility] nurse and boyfriend were having difficulty [...] included)...NormalAv HospitalIron and Iron binding capacity panelon 24-31-9689Jplp [Mass/Vol]33 ug/gUMca27-063Wjnu HospitalComment on above:Order Comment: Specimen Type: BLOOD SPECIMENOrdering Facility: [facility] Address:[address] [place] [address] Performed By: #### 75842-0, 2275-10 ####[facility] HOSPITALIA [id number] [place] [address] [place] Iron binding capacity [Mass/Vol]255 ug/vKLfnsgj479-549Iynm HospitalComment on above:Order Comment: Specimen Type: BLOOD SPECIMENOrdering Facility: [facility] Address:[address] [place], [place] [address]Performed By: #### 64333-4, 2275-10 ####[facility] HOSPITALIA [id number] [place] [address] [place] AMERICAIron/TIBC [Molar ratio]12.9 % Low15.0-57.0[place] HospitalComment on above:Order Comment: Specimen Type: BLOOD SPECIMENOrdering Facility: [facility] Address:[address] [place], [place] [address]Performed By: #### 74840-6, 2275- ####[facility] LABORATORYIA [id number] [place] [address] [place] AMERICAMagnesium SerPl-mCncon 53-62-1945Qsdcrlbnp [Mass/Vol]1.9 mg/dL Normal1.7-2.3[facility] HospitalComment on above:Order Comment: Specimen Type: BLOOD SPECIMENOrdering Facility: [facility] Address:[address] [place], [place] [address]Performed By: #### 38228-4, 29376-3, 2777-1 ####[facility] LABORATORYCLIA [id number] [place] [address] [facility]OSPITALPT panel Coag (PPP)on 49-50-3758NFJ Coag (PPP) [Relative time] 1.1 {INR}Normal0.9-1.3[facility] HospitalComment on above:Order Comment: Specimen Type: BLOOD SPECIMEN [facility] Address: [address] [place], [place] [address]Result Comment: Vitamin K Antagonist (VKA) Therapeutic Range: INR 2 to 3 (Target INR of 2.5) Note: For patients treated with VKA drugs, such as warfarin, the [place] [employer] 2012 Guideline recommends [...] al. JACC 2017, 70: 252-289Performed By: #### 99364-5, PTTAC, 53327-4 #### [facility] CLIA [id number] [place] [address] [place] OF AMERICAPT Coag (PPP) [Time]11.8 sNormal9.7-13.0 [facility]rook HospitalComment on above:Order Comment: Specimen Type: BLOOD SPECIMEN [facility] Address: [address] [place], [place] [address]Performed By: #### 34446-0, PTTAC, 91510-4 #### [facility] CLIA [id number] [place] [address] [place] AMERICAPTT, ANTICOAGULANT THERAPYon 09-02-2024 aPTT Coag (PPP) [Time]33.2 sHigh23.0-32.4Avon HospitalComment on above:Order Comment: Specimen Type: BLOOD SPECIMENOrdering Facility: [facility] Address:[address] [place], [place] [address]Performed By: #### PTTAC ####[facility] LABORATORYCLIA [id number] [place] [address] [place] [facility] HOSPITALaPTT Coag (PPP) [Time]Tzsbge04.0-32.4[facility] Hospital Comment on above:Order Comment: Specimen Type: BLOOD SPECIMENOrdering Facility: [facility] Address:[address] [place], [place] [address]Result Comment: Clotted specimen Corrected result: Previously reported as 29.3 sec on 09/02/2024 at 9:36 PM EST. Performed By: #### PTTAC ####[facility] LABORATORYCLIA [id number] [place] [address] [place] [facility] HOSPITALaPTT Coag (PPP) [Time]21.1 sLow23.0-32.4Avon HospitalComment on above:Order Comment: Specimen Type: BLOOD SPECIMEN [facility] Address: [address] [place], [place] [address]Performed By: #### 22951-1, PTTAC, 83392-7 #### [facility] CLIA [id number] [address] [place] [address] [place] AMERICAPhosphate SerPl-mCncon 09-02-2024 Phosphate [Mass/Vol]5.8 mg/dLHigh2.7-4.8Avon HospitalComment on above:Order Comment: Specimen Type: BLOOD SPECIMENOrdering Facility: [facility] Address:[facility] [place], [place] [address]Ynyuheqqo By: #### 09271- 8, 40132-9, 2777-1 ####[facility] HOSPITALIA [id number] [place] [address] [facility] HOSPITALaPTT PPPon 34-57-7633zYWC Coag (PPP) [Time]47.0 sHigh23.0-32.4Avon HospitalComment on above:Order Comment: Specimen Type: BLOOD SPECIMENOrdering Facility: [facility] Address:[address] [place], [place] [address]Qpcoocbzx By: #### 75266-5 ####[facility] [id number] [place] [address] [facility] HOSPITALALLADVENTIST HEALTH DELANO HEALTHon 23-30-4545HKDRZP HEALTHHNO ID: [id number] Author: ANGELINA HUERTAS RT(R) Service: Radiology Author [...] PATIENT 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 WITH AN 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 --END OF FINDING-- Reducing Machine Operator: PSCCoridon Transcribe Date/Time: Sep 01 2024 7:18P Dictated by : MIKE CODY MD This examination was interpreted and the report reviewed and electronically signed by: MIKE CODY MD on Sep 01 2024 7:22PM EST [id number] ACTIONABLEInvalid Interpretation CodeAv HospitalXR CHEST 2V FRONTAL/LATon 95-14-4187HM CHEST 2V FRONTAL/LAT* * *Final Report* * [...] placement with no evidence of acute disease. Reducing Machine Operator: PSCCoridon Transcribe Date/Time: Sep 01 2024 7:38P Dictated by : TRAM CHING MD This examination was interpreted and the report reviewed and electronically signed by: TRAM CHING MD on Sep 01 2024 7:39PM EST [id number] HospitalCNPNon 04-19-3770ANXURejchgLvygbijov Clinic ClevelandBajane [facility] metabolic 2000 panelon 60-89-5714Nlxto gap [Moles/Vol]12 mmol/LNormal8-15[facility] on above:Order Comment: Specimen Type: BLOOD SPECIMENOrdering Facility: [facility] Address:[address] [place], [place] [address]Performed By: #### 34227-8, , 2776-07 ####[facility] LABIA [id number], [place] [address] [place] AMERICACalcium [Mass/Vol]9.3 mg/dL Normal8.5-10.2CMarietta Memorial Hospital on above:Order Comment: Specimen Type: BLOOD SPECIMENOrdering Facility: [facility] Address:[address] [place], [place] [address]Performed By: #### 85951-7, , 2776-07 ####[facility] LABIA [id number], [place] [address] [place] AMERICAChloride [Moles/Vol]100 mmol/L Lmqqbv84-608XjbrfmhabTriHealth Bethesda North Hospital on above:Order Comment: Specimen Type: BLOOD SPECIMENOrdering Facility: [facility] Address:[address] [place], [place] [address]Performed By: #### 56765-2, , 2776-07 ####[facility] LABIA [id number] VILLE [address] [place] AMERICACO2 [Moles/Vol]26 mmol/LNormal 22-30[facility] on above:Order Comment: Specimen Type: BLOOD SPECIMENOrdering Facility: [facility] Address:[address] [place], [place] [address]Performed By: #### 57899-5, , 2776-07 ####[facility] LABBRATTLEBORO [facility] [id number] VILLE [address] [place] AMERICACreatinine [Mass/Vol]0.54 mg/dL Low0.58-0.96[facility] on above:Order Comment: Specimen Type: BLOOD SPECIMENOrdering Facility: [facility] Address:[address] [place], [place] [address]Performed By: #### 65191-6, , 2776-07 ####[facility] [id number], [place] [address] [place] AMERICACreatinine and Glomerular filtration rate.predicted panel (S/P/Bld)123 mL/min/1.73m???Normal>=60[facility] on above:Order Comment: Specimen Type: BLOOD SPECIMENOrdering Facility: [facility] Address:[address] [place], [place] [address]Result Comment: Estimated Glomerular Filtration Rate (eGFR) is calculated using the 2020 CKD-EPI creatinine equation. This equation utilizes serum creatinine, sex, and age as parameters. The creatinine assay has traceable calibration to isotope dilution-mass spectrometry. Refer to KDIGO guidelines for clinical interpretation. In patients with unstable renal function, e.g. those with acute kidney injury, the eGFR may not accurately reflect actual GFR.Performed By: #### 94601-5, , 2776-07 ####[facility] [id number] VILLE [address] [place] AMERICAGlucose [Mass/Vol]79 mg/vVLmnmjh87-87BiczlnfmaTriHealth Bethesda North Hospital on above:Order Comment: Specimen Type: BLOOD SPECIMENOrdering Facility: [facility] Address:[address] [place], [place] [address]Result Comment: The [place] Diabetes Association (ADA) provides guidance for cutoff [...] Standards of Medical Care in Diabetes 2016, [place] Diabetes Association. Diabetes Care. 2016.39(Suppl 1).Performed By: #### 24344- 2, , 2776-07 ####[facility] LABIA [id number], [place] [address] [place] AMERICAPotassium [Moles/Vol] 4.2 mmol/LNormal3.7-5.1CMarietta Memorial Hospital on above:Order Comment: Specimen Type: BLOOD SPECIMENOrdering Facility: [facility] Address:[address] [place], [place] [address]Performed By: #### 42812-3, , 2776-07 ####[facility] LABIA [id number], [place] [address] [place]ICASodium [Moles/Vol]138 mmol/L Acafbs020-849UwyusukloTriHealth Bethesda North Hospital on above:Order Comment: Specimen Type: BLOOD SPECIMENOrdering Facility: [facility] Address:[address] [place], [place] [address]Performed By: #### 00659-3, , 2776-07 ####[facility] LABIA [id number] VILLE [id number] [place] AMERICAUrea nitrogen [Mass/Vol]16 mg/dL Normal7-21[facility] on above:Order Comment: Specimen Type: BLOOD SPECIMENOrdering Facility: [facility] Address:[address] [place], [place] [address]Performed By: #### 24244-9, , 2776-07 ####[facility] LABIA [id number] VILLE [id number] [place] AMERICACASE MANAGEMon 33-31-9023DMRK MANAGEMNormalDunlap Memorial HospitalCASE MANAGEMNormalDunlap Memorial HospitalCB panel Auto (Bld)on 78-99-2137Pyxsbqvegrj distribution width (RBC) [Ratio]14.7 %Iuponk47.5-15.0[facility] on above:Order Comment: Specimen Type: BLOOD SPECIMENOrdering Facility: [facility] Address:[address] [place], [place] [address]Performed By: #### 82751- 2 ####[facility] LABIA [id number] [address] HALL STREETHematocrit (Bld) [Volume fraction]25.0 %Low36.0-46.0[facility] on above:Order Comment: Specimen Type: BLOOD SPECIMENOrdering Facility: [facility] Address:[address] [place], [place] [address]Performed By: #### 03908- 2 ####[facility] LABIA [id number] [address] HALL STREETHemoglobin (Bld) [Mass/Vol]7.8 g/dLLow11.5-15.5CMarietta Memorial Hospital on above:Order Comment: Specimen Type: BLOOD SPECIMENOrdering Facility: [facility] Address:[address] [place], [place] [address]Performed By: #### 58305-2 ####[facility] LABCLIA [id number] [place] [id number] [place] AMERICAMCH (RBC) [Entitic mass]28.3 pg Jnycpe66.0-34.0[facility] on above:Order Comment: Specimen Type: BLOOD SPECIMENOrdering Facility: [facility] Address:[address] [place], [place] [address]Performed By: #### 87181-0 ####[facility] LABCLIA [id number] [address]ETMCHC (RBC) [Mass/Vol]31.2 g/dL Yofnxu51.5-36.0[facility] on above:Order Comment: Specimen Type: BLOOD SPECIMENOrdering Facility: [facility] Address:[address] [place], [place] [address]Performed By: #### 70004-4 ####[facility] LABIA [id number] [address]ETMCV (RBC) [Entitic vol]90.6 fL Vdmrxj81.0-100.0[facility] on above:Order Comment: Specimen Type: BLOOD SPECIMENOrdering Facility: [facility] Address:[address] [place], [place] [address]Performed By: #### 27129-2 ####[facility] LABIA [id number] [address]ETucleated RBC (Bld) [#/Vol] 10*3/uLNormal<0.01[facility] on above:Order Comment: Specimen Type: BLOOD SPECIMENOrdering Facility: [facility] Address:[address] [place], [place] [address]Performed By: #### 52214-4 ####[facility] LABIA [id number] [address] STREETPlatelet mean volume (Bld) [Entitic vol]11.2 fLNormal9.0-12.7CMarietta Memorial Hospital on above: Order Comment: Specimen Type: BLOOD SPECIMENOrdering Facility: [facility] Address:[address] [place], [place] [address]Performed By: #### 05686- 2 ####[facility] LABCLIA [id number] [address] OF AMERICAPlatelets (Bld) [#/Vol]335 10*3/xTYabybs831-860JqninuksdTriHealth Bethesda North Hospital on above:Order Comment: Specimen Type: BLOOD SPECIMENOrdering Facility: [facility] Address:[address] [place], [place] [address]Performed By: #### 45533-4 ####[facility] LABCLIA [id number] [place] [address] [place] AMERICARBC (Bld) [#/Vol]2.76 10*6/uLLow 3.90-5.20[facility] on above:Order Comment: Specimen Type: BLOOD SPECIMENOrdering Facility: [facility] Address:[address] [place], [place] [address]Performed By: #### 58813-6 ####[facility] LABCLIA [id number] [place] [address] [place] AMERICAWBC (Bld) [#/Vol]9.07 10*3/uLNormal3.70-11.00[facility] on above:Order Comment: Specimen Type: BLOOD SPECIMENOrdering Facility: [facility] Address:[address] [place], [place] [address]Performed By: #### 84850-1 ####[facility] LABCLIA [id number] [place] [id number] [place] AMERICAErythrocyte distribution width (RBC) [Ratio]14.6 %Xwsmnb34.5-15.0 [facility] on above:Order Comment: Specimen Type: BLOOD SPECIMENOrdering Facility: [facility] Address:[address] [place], [place] [address]Performed By: #### 46075-3 ####[facility] LABCLIA [id number] [place] [id number] [place] AMERICAHematocrit (Bld) [Volume fraction]23.6 %Low36.0-46.0[facility] on above:Order Comment: Specimen Type: BLOOD SPECIMENOrdering Facility: [facility] Address:[address] [place], [place] [address]Performed By: #### 10681-9 ####[facility] LABCLIA [id number] [place] [address] [place] Hemoglobin (Bld) [Mass/Vol]7.4 g/dLLow11.5-15.5CMarietta Memorial Hospital on above:Order Comment: Specimen Type: BLOOD SPECIMENOrdering Facility: [facility] Address:[address] [place] [address] Performed By: #### 62320-0 ####[facility] LABIA [id number] [place] [address] [place] MCH (RBC) [Entitic mass]28.2 gbZsrwfk81.0-34.0[facility] on above:Order Comment: Specimen Type: BLOOD SPECIMENOrdering Facility: [facility] Address:[address] [place] [address] Performed By: #### 30137-4 ####[facility] LABIA [id number] [place] [address] [place] MCHC (RBC) [Mass/Vol]31.4 g/xCQvepwh25.5-36.0[facility] on above:Order Comment: Specimen Type: BLOOD SPECIMENOrdering Facility: [facility] Address:[address] [place] [address] Performed By: #### 74662-9 ####[facility] LABCLIA [id number] [place] [address] [place] MCV (RBC) [Entitic vol]90.1 wVGvrdcs89.0-100.0[facility] on above:Order Comment: Specimen Type: BLOOD SPECIMENOrdering Facility: [facility] Address:[address] [place] [address] Performed By: #### 89006-4 ####[facility] LABCLIA [id number] [place] [address] [place] Nucleated RBC (Bld) [#/Vol]10*3/uLNormal<0.01[facility] on above:Order Comment: Specimen Type: BLOOD SPECIMENOrdering Facility: [facility] Address:[address] [place] [address] Performed By: #### 26909-8 ####[facility] LABIA [id number] [place] [address] [place] Platelet mean volume (Bld) [Entitic vol]11.4 fLNormal9.0-12.7CMarietta Memorial Hospital on above:Order Comment: Specimen Type: BLOOD SPECIMENOrdering Facility: [facility] Address:[address] [place], [place] [address]Performed By: #### 36997-1 ####[facility] [id number] [place] [address] [place] Platelets (Bld) [#/Vol]310 10*3/rSEhheqy476-900UsjaukvexTriHealth Bethesda [facility] Hospital on above:Order Comment: Specimen Type: BLOOD SPECIMENOrdering Facility: [facility] Address:[address] [place] [address] Performed By: #### 81165-2 ####[facility] [id number] [place] [address] [place] RBC (Bld) [#/Vol]2.62 10*6/uLLow3.90-5.20[facility] on above:Order Comment: Specimen Type: BLOOD SPECIMENOrdering Facility: [facility] Address:[address] [place], [place] [address]Performed By: #### 59152-4 ####[facility] LABBRATTLEBORO MEMORIAL [facility] [id number] [place] [address] [place] AMERICAWBC (Bld) [#/Vol]7.85 10*3/uLNormal3.70-11.00Dunlap Memorial HospitalComtrinity health [facility] on above:Order Comment: Specimen Type: BLOOD SPECIMENOrdering Facility: [facility] Address:[address] [place], [place] [address]Performed By: #### 20732-3 ####[facility] LABCLIA [id number] [place] [address] [place] AMERICACNDSon [id number] [facility] HospitalMagnesium SerPl-mCncon [id number] [Mass/Vol] 1.8 mg/dLNormal1.7-2.3ClevelRutherford Regional Health SystemComment on above:Order Comment: Specimen Type: BLOOD SPECIMENOrdering Facility: [facility] Address:[address] [place], [place] [address]Performed By: #### 92767-7, 11401-3, 2777- ####[facility] LABCLIA [id number] [place] [id number] [place] AMERICAPT EDon 17-28-2234ND EDNormal [facility] HospitalPhosphate SerPl-mCncon [id number] [Mass/Vol] 4.2 mg/dLNormal2.7-4.8CUniversity Hospitals Health SystemComtrinity health [facility] on above:Order Comment: Specimen Type: BLOOD SPECIMENOrdering Facility: [facility] Address:[address] [address] [place], [place] [address]Performed By: #### 09360-1, 10172-5, 2777-1 ####[facility] LABCLIA [id number] VIL[place] [id number] [place] OF AMERICABasic metabolic 2000 panelon 44-88-8742Xhhba gap [Moles/Vol]14 mmol/LNormal8-15[facility] Comment on above:Order Comment: Specimen Type: BLOOD SPECIMENOrdering Facility: [facility] Address:[address] [place] [address] Performed By: #### 54688-8, 19421-5, 2777-1, 2571-8 ####[facility] LABCLIA [id number] [place] [id number] [place] AMERICACalcium [Mass/Vol]9.6 mg/dLNormal8.5-10.2CMarietta Memorial Hospital on above:Order Comment: Specimen Type: BLOOD SPECIMENOrdering Facility: [facility] Address:[address] [place], [place] [address]Performed By: #### 04510-4, 81017-8, 2777-1, 257-8 ####[facility] LABIA [id number] [place] [id number] [place] AMERICAChloride [Moles/Vol]98 mmol/XLlagcd85-291SosbgjvluTriHealth [facility] on above:Order Comment: Specimen Type: BLOOD SPECIMENOrdering Facility: [facility] Address:[address] [place], [place] [address]Performed By: #### 05110-3, 61676-5, 2777-1, 257-8 ####[facility] [id number] [place] [id number] [place] AMERICACO2 [Moles/Vol]28 mmol/LNormal 22-30[facility] on above:Order Comment: Specimen Type: BLOOD SPECIMENOrdering Facility: [facility] Address:[address] [place] [id number] By: #### 79802-9, 21489-5, 2777-1, 257-8 ####[facility] LABIA [id number] [place] [id number] [place] AMERICACreatinine [Mass/Vol]0.52 mg/dL Low0.58-0.96[facility] on above:Order Comment: Specimen Type: BLOOD SPECIMENOrdering Facility: [facility] Address:[address] [place], [place] [address]Performed By: #### 22283-1, 16264-7, 2777-1, 2571-8 ####[facility] LABIA [id number] [address] [address] [place] AMERICACreatinine and Glomerular filtration rate.predicted panel (S/P/Bld)124 mL/min/1.73m???Normal>=60[facility] on above:Order Comment: Specimen Type: BLOOD SPECIMENOrdering Facility: [facility] Address:[address] [place] [id number] Comment: Estimated Glomerular Filtration Rate (eGFR) is calculated using the 2020 CKD-EPI creatinine equation. This equation utilizes serum creatinine, sex, and age as parameters. The creatinine assay has traceable calibration to isotope dilution-mass spectrometry. Refer to KDIGO guidelines for clinical interpretation. In patients with unstable renal function, e.g. those with acute kidney injury, the eGFR may not accurately reflect actual GFR.Performed By: #### 48031-5, 48931-8, 2777-, 257-8 ####[facility] LABIA [id number] [address] [address] [place] AMERICAGlucose [Mass/Vol]109 mg/dLHigh 74-99[facility] on above:Order Comment: Specimen Type: BLOOD SPECIMENOrdering Facility: [facility] Address:[address] [place] [id number] Comment: The [place] Diabetes Association (ADA) provides guidance for cutoff [...] Standards of Medical Care in Diabetes 2016, [place] Diabetes Association. Diabetes Care. 2016.39(Suppl 1).Performed By: #### 90847- 2, 46539-1, 2777-1, 2571-8 ####[facility] LABCLIA [id number] [place] [address] [place] Potassium [Moles/Vol]3.5 mmol/LLow3.7-5.1CMarietta Memorial Hospital on above:Order Comment: Specimen Type: BLOOD SPECIMENOrdering Facility: [facility] Address:[address] [place], [place] [address]Performed By: #### 01600-5, 45407-7, 2777-1, 2571-8 ####[facility] LABIA [id number] [place] [address] [place] Sodium [Moles/Vol]140 mmol/JPdthpf488-618BgbawymheTriHealth Bethesda North Hospital on above:Order Comment: Specimen Type: BLOOD SPECIMENOrdering Facility: [facility] Address:[address] [place], [place] [address]Performed By: #### 70950-2, 82592-0, 2777-1, 257-8 ####[facility] LABIA [id number] [place] [address] [place] Urea nitrogen [Mass/Vol]20 mg/dLNormal7-21[facility] on above:Order Comment: Specimen Type: BLOOD SPECIMENOrdering Facility: [facility] Address:[address] [place], [place] [address]Performed By: #### 47423-6, 94507-9, 277-1, 257-8 ####[facility] LABIA [id number] [place] [id number] [place] CASE MANAGEMon 73-00-4232BCDX MANAGEMNormalDunlap Memorial HospitalCB panel Auto (Bld)on 80-08-6930Zhsdrttgexd distribution width (RBC) [Ratio]14.6 %Normal 11.5-15.0[facility] on above:Order Comment: Specimen Type: BLOOD SPECIMENOrdering Facility: [facility] Address:[address] [place], [place] [address]Performed By: #### 99542-8 ####[facility]ITALIA [id number] [place] [address] [place] AMERICAHematocrit (Bld) [Volume fraction]26.5 %Low36.0-46.0 [facility] on above:Order Comment: Specimen Type: BLOOD SPECIMENOrdering Facility: [facility] Address:[address] [place], [place] [address]Performed By: #### 69595-4 ####[facility] LABIA [id number] [place] [address] [place] AMERICAHemoglobin (Bld) [Mass/Vol]8.2 g/dLLow11.5-15.5CUniversity Hospitals Health System Comment on above:Order Comment: Specimen Type: BLOOD SPECIMENOrdering Facility: [facility] Address:[address] [place] [address] Performed By: #### 31164-2 ####[facility] LABIA [id number] [place] [address] [place] MCH (RBC) [Entitic mass]27.8 xcQxvafk54.0-34.0[facility] on above:Order Comment: Specimen Type: BLOOD SPECIMENOrdering Facility: [facility] Address:[address] [place] [address] Performed By: #### 31152-2 ####[facility] LABIA [id number] [place] [address] [place] MCHC (RBC) [Mass/Vol]30.9 g/hUUlenrt31.5-36.0[facility] on above:Order Comment: Specimen Type: BLOOD SPECIMENOrdering Facility: [facility] Address:[address] [place] [address] Performed By: #### 97590-1 ####[facility] LABIA [id number] [place] [address] [place] MCV (RBC) [Entitic vol]89.8 lMXeiyiw38.0-100.0[facility] on above:Order Comment: Specimen Type: BLOOD SPECIMENOrdering Facility: [facility] Address:[address] [place] [address] Performed By: #### 56081-3 ####[facility] LABIA [id number] [place] [address] [place] Nucleated RBC (Bld) [#/Vol]10*3/uLNormal<0.01[facility] on above:Order Comment: Specimen Type: BLOOD SPECIMENOrdering Facility: [facility] Address:[address] [place] [address] Performed By: #### 31837-8 ####[facility] [id number] [place] [address] [place] Platelet mean volume (Bld) [Entitic vol]11.3 fLNormal9.0-12.7CMarietta Memorial Hospital on above:Order Comment: Specimen Type: BLOOD SPECIMENOrdering Facility: [facility] Address:[address] [place], [place] [address]Performed By: #### 71586-3 ####[facility] [id number] [place] [address] [place] Platelets (Bld) [#/Vol]333 10*3/oTAjzwka764-864TfylytbiuTriHealth Bethesda North Hospital on above:Order Comment: Specimen Type: BLOOD SPECIMENOrdering Facility: [facility] Address:[address] [place] [address] Performed By: #### 39412-5 ####[facility] LABIA [id number] [place] [address] [place] RBC (Bld) [#/Vol]2.95 10*6/uLLow3.90-5.20[facility] on above:Order Comment: Specimen Type: BLOOD SPECIMENOrdering Facility: [facility] Address:[address] [place], [place] [address]Performed By: #### 48546-5 ####[facility] LABCLIA [id number] [place] [address] [place] AMERICAWBC (Bld) [#/Vol]9.54 10*3/uLNormal3.70-11.00[facility] on above:Order Comment: Specimen Type: BLOOD SPECIMENOrdering Facility: [facility] Address:[address] [place], [place] [address]Performed By: #### 62508-6 ####[facility] LABCLIA [id number] [place] [address] [place] AMERICACONSULT PROGon 39-59-0751LGVWMUS PROGNormalDunlap Memorial HospitalCONSULT PROGNormalDunlap Memorial Hospital Magnesium SerPl-mCncon 12-48-1721Ldcefosew [Mass/Vol]1.9 mg/dLNormal1.7-2.3 [facility] on above:Order Comment: Specimen Type: BLOOD SPECIMENOrdering Facility: [facility] Address:[address] [place], [place] [address]Performed By: #### 20918-6, 78285-6, 2777-1, 2571-8 ####[facility] LABCLIA [id number] [place] [address] [place] AMERICAPT EDon 04-43-0947VO EDNormal [facility] HospitalPhosphate SerPl-mCncon 28-86-3258Gwslasgap [Mass/Vol] 5.2 mg/dLHigh2.7-4.8CMarietta Memorial Hospital on above:Order Comment: Specimen Type: BLOOD SPECIMENOrdering Facility: [facility] Address:[address] [place], [place] [address]Performed By: #### 77346-3, 62828-9, 2777-1, 2571-8 ####[facility] LABCLIA [id number] [address] [address] [place] AMERICATrigl SerPl-mCncon 89-60-1082Zfaaaeeafdjn [Mass/Vol]177 mg/dLHigh<150[facility] Comment on above:Order Comment: Specimen Type: BLOOD SPECIMENOrdering Facility: [facility] Address:[address] [place] [address]Pyqgwt Comment: <150 mg/dL, Normal 150-199 mg/dL, Borderline high 200-499 mg/dL, High>499 mg/dL, Very highReference:1. National Cholesterol Education Program ATP III Guideline At-A-Glance QuickDesk Reference: National Heart, Lung, and Blood [place]. National Institutes of Health. 2001: NIHPublication No. 01-3305. Performed By: #### 14807-6, 76273-1, 2777-1, 257-8 ####[facility] LABIA [id number] [address] [address] [place] AMERICATriglyceride [Mass/Vol]on 52-63-7642DZXMWQY TIME0 hrsNormal [facility] HospitalComment on above:Order Comment: Specimen Type: BLOOD SPECIMENOrdering Facility: [facility] Address:[address] [place] [address]Jwpbujcjw By: #### 90939-3, 07418-7, 2777-1, 257-8 ####[facility] LABIA [id number] [address] [address] [place] AMERICAALLIED HEALTHon 88-97-5547DWDGDS HEALTHNormalCUniversity Hospitals Health SystemBajane [facility] metabolic 2000 panelon 08-28-2024 Anion gap [Moles/Vol]13 mmol/LNormal8-15[facility] Memorial HospitalComtrinity health [facility] on above:Order Comment: Specimen Type: BLOOD SPECIMENOrdering Facility: [facility] Address:[address] [place], [place] [address]Performed By: #### 86194-0, 1987-11, , ####[facility] LABCLIA [id number] [address] [address] [place] Calcium [Mass/Vol]9.5 mg/dLNormal8.5-10.2CMarietta Memorial Hospital on above:Order Comment: Specimen Type: BLOOD SPECIMENOrdering Facility: [facility] Address:[address] [place], [place] [address]Performed By: #### 12651-9, 1987-11, , ####[facility] LABCLIA [id number] [place] [id number] [place] Chloride [Moles/Vol]100 mmol/VGsoxlw21-504BuiwidznuTriHealth Bethesda North Hospital on above:Order Comment: Specimen Type: BLOOD SPECIMENOrdering Facility: [facility] Address:[address] [place], [place] [address]Performed By: #### 00378-9, 1987-11, , ####[facility] LABCLIA [id number] [place] [id number] [place] CO2 [Moles/Vol]26 mmol/CUzptzq08-46AbgxpyyliTriHealth Bethesda North Hospital on above: Order Comment: Specimen Type: BLOOD SPECIMENOrdering Facility: [facility] Address:[address] [place], [place] [address]Performed By: #### 38518- 2, 1987-11, , ####[facility] LABCLIA [id number] [place] [id number] [place] Creatinine [Mass/Vol]0.46 mg/dLLow0.58-0.96[facility] on above:Order Comment: Specimen Type: BLOOD SPECIMENOrdering Facility: [facility] Address:[address] [place], [place] [address]Performed By: #### 39993-6, 1987-11, , ####[facility] LABIA [id number] [address] [place] Creatinine and Glomerular filtration rate.predicted panel (S/P/Bld)127 mL/min/1.73m???Normal>=60[facility] on above:Order Comment: Specimen Type: BLOOD SPECIMENOrdering Facility: [facility] Address:[address] [place], [place] [address]Result Comment: Estimated Glomerular Filtration Rate (eGFR) is [...] not accurately reflect actual GFR.Performed By: #### 04002-0, 1987-11, , ####[facility] LABIA [id number] [place] [address] [place] AMERICAGlucose [Mass/Vol]117 mg/zSGcwy88-22XtlopraciTriHealth Bethes[facility] on above:Order Comment: Specimen Type: BLOOD SPECIMENOrdering Facility: [facility] Address:[address] [place], [place] [address]Result Comment: The [place] Diabetes Association (ADA) provides guidance for cutoff [...] Standards of Medical Care in Diabetes 2016, [place] Diabetes Association. Diabetes Care. 2016.39(Suppl 1). Performed By: #### 52319-0, 1987-11, 76833-0, ####[facility] LABCLIA [id number] [place] [address] [place] AMERICAPotassium [Moles/Vol]3.9 mmol/LNormal3.7-5.1CMarietta Memorial Hospital on above:Order Comment: Specimen Type: BLOOD SPECIMENOrdering Facility: [facility] Address:[address] [place], [place] [address]Performed By: #### 05185-8, 1987-11, , ####[facility] LABIA [id number] [place] [address] [place] AMERICASodium [Moles/Vol]139 mmol/TXxbmis866-343VviwnrdclTriHealth Bethesda North Hospital on above:Order Comment: Specimen Type: BLOOD SPECIMENOrdering Facility: [facility] Address:[address] [place], [place] [address]Performed By: #### 88753-5, 1987-11, , ####[facility]ITALIA [id number] [address] STATES OF AMERICAUrea nitrogen [Mass/Vol]20 mg/dL Normal7-21[facility] on above:Order Comment: Specimen Type: BLOOD SPECIMENOrdering Facility: [facility] Address:[address] [place], [place] [address]Performed By: #### 87659-1, 1987-11, , ####[facility] LABIA [id number] [place] [address] [place] AMERICACBC panel Auto (Bld)on 00-63-6805Hvbcuefelvx distribution width (RBC) [Ratio]14.6 %Bkwyzf63.5-15.0 [facility] on above:Order Comment: Specimen Type: BLOOD SPECIMENOrdering Facility: [facility] Address:[address] [place], [place] [address]Performed By: #### 87005-1 ####[facility] LABIA [id number] [place] [address] [place] [facility] HOSPITALHematocrit (Bld) [Volume fraction]25.5 %Low36.0-46.0[facility] on above:Order Comment: Specimen Type: BLOOD SPECIMENOrdering Facility: [facility] Address:[address] [place], [place] [address]Performed By: #### 28199-6 ####[facility] LABIA [id number] [place] [address] [place] Hemoglobin (Bld) [Mass/Vol]8.3 g/dLLow11.5-15.5CMarietta Memorial Hospital on above:Order Comment: Specimen Type: BLOOD SPECIMENOrdering Facility: [facility] Address:[address] [place] [address] Performed By: #### 42481-8 ####[facility] LABIA [id number] [place] [address] [place] MCH (RBC) [Entitic mass]29.0 rlJvfxwi87.0-34.0[facility] on above:Order Comment: Specimen Type: BLOOD SPECIMENOrdering Facility: [facility] Address:[address] [place] [address] Performed By: #### 43314-7 ####[facility] LABCLIA [id number] [place] [address] [place] MCHC (RBC) [Mass/Vol]32.5 g/iMYqkjin59.5-36.0[facility] on above:Order Comment: Specimen Type: BLOOD SPECIMENOrdering Facility: [facility] Address:[address] [place] [address] Performed By: #### 80881-5 ####[facility] LABCLIA [id number] [place] [address] [place] MCV (RBC) [Entitic vol]89.2 dZVynfel30.0-100.0[facility] on above:Order Comment: Specimen Type: BLOOD SPECIMENOrdering Facility: [facility] Address:[address] [place] [address] Performed By: #### 29494-2 ####[facility] [id number] [place] [address] [place] Nucleated RBC (Bld) [#/Vol]10*3/uLNormal<0.01[facility] on above:Order Comment: Specimen Type: BLOOD SPECIMENOrdering Facility: [facility] Address:[address] [place] [address] Performed By: #### 52625-5 ####[facility] [id number] [place] [address] [place] Platelet mean volume (Bld) [Entitic vol]10.9 fLNormal9.0-12.7CMarietta Memorial Hospital on above:Order Comment: Specimen Type: BLOOD SPECIMENOrdering Facility: [facility] Address:[address] [place], [place] [address]Performed By: #### 96678-7 ####[facility] [id number] [place] [address] [place] Platelets (Bld) [#/Vol]290 10*3/eCQywnax134-295EiqzytqumTriHealth Bethesda North Hospital on above:Order Comment: Specimen Type: BLOOD SPECIMENOrdering Facility: [facility] Address:[address] [place] [address] Performed By: #### 84942-9 ####[facility] [id number] [place] [address] [place] RBC (Bld) [#/Vol]2.86 10*6/uLLow3.90-5.20[facility] on above:Order Comment: Specimen Type: BLOOD SPECIMENOrdering Facility: [facility] Address:[address] [place], [place] [address]Performed By: #### 53308-3 ####[facility] LABCLIA [id number] [place] [address] [place] AMERICAWBC (Bld) [#/Vol]10.52 10*3/uLNormal3.70-11.00[facility] on above:Order Comment: Specimen Type: BLOOD SPECIMENOrdering Facility: [facility] Address:[address] [place], [place] [address]Performed By: #### 89664- 2 ####[facility] [id number] [place] [address] [place] AMERICACONSULTon 61-69-3609BMKDHWGMblcnv [facility] HospitalCONSULT PROGon 17-28-1354RDGCMLD PROGNormalDunlap Memorial HospitalCRP SerPl-mCncon 47-91-5750UBQ [Mass/Vol]6.2 mg/dLHigh<0.9 [facility] on above:Order Comment: Specimen Type: BLOOD SPECIMENOrdering Facility: [facility] Address:[address] [place], [place] [address]Performed By: #### 52512-2, 1987-11, 49188-8, ####[facility] LABIA [id number] [place] [id number] [place] AMERICAHepatic function 2000 panelon 93-88-3031Pdlnkau [Mass/Vol]3.2 g/dLLow3.9-4.9CMarietta Memorial Hospital on above:Order Comment: Specimen Type: BLOOD SPECIMENOrdering Facility: [facility] Address:[address] [place] [address] Performed By: #### 00612-2, 1987-11, 37742-4, ####[facility] LABCLIA [id number] [address] [address] [place] AMERICAALP [Catalytic activity/Vol]174 U/GWywj50-153MdvkvrojmTriHealth [facility] on above:Order Comment: Specimen Type: BLOOD SPECIMENOrdering Facility: [facility] Address:[address] [place], [place] [address]Performed By: #### 56426-8, 1987-11, , ####[facility] LABCLIA [id number] [address] [address] [place] AMERICAALT [Catalytic activity/Vol]30 U/LNormal7-38[facility] on above:Order Comment: Specimen Type: BLOOD SPECIMENOrdering Facility: [facility] Address:[address] [place], [place] [address]Performed By: #### 27197-1, 1987-11, , ####[facility] LABCLIA [id number] [place] [id number] [place] AMERICAAST [Catalytic activity/Vol]27 U/KIirnnb75-31NnujqgfgyTriHealth [facility] on above:Order Comment: Specimen Type: BLOOD SPECIMENOrdering Facility: [facility] Address:[address] [place], [place] [address]Performed By: #### 20117-4, 1987-11, , ####[facility] LABCLIA [id number] [place] [id number] [place] AMERICABilirubin [Mass/Vol] 0.2 mg/dLNormal0.2-1.3CMarietta Memorial Hospital on above:Order Comment: Specimen Type: BLOOD SPECIMENOrdering Facility: [facility] Address:[address] [place], [place] [address]Performed By: #### 65215-5, 1987-11, , ####[facility] LABCLIA [id number] [place] [address] [place] AMERICABilirubin.conjugated [Mass/Vol]0.1 mg/dLNormal<0.3CMarietta Memorial Hospital on above:Order Comment: Specimen Type: BLOOD SPECIMENOrdering Facility: [facility] Address:[address] [place], [place] [address]Performed By: #### 98213- 2, 1987-11, , ####[facility] LABCLIA [id number] [place] [address] [place] Protein [Mass/Vol]6.7 g/dLNormal6.3-8.0[facility] on above:Order Comment: Specimen Type: BLOOD SPECIMENOrdering Facility: [facility] Address:[address] [place], [place] [address]Performed By: #### 79685-2, 1987-11, , ####[facility] LABCLIA [id number] [place] [address] [place] Magnesium SerPl-mCncon 37-92-0168Dctsnuqxi [Mass/Vol]2.4 mg/dLHigh1.7-2.3 [facility] on above:Order Comment: Specimen Type: BLOOD SPECIMENOrdering Facility: [facility] Address:[address] [place], [place] [address]Performed By: #### 08262-0, 1987-11, , ####[facility] LABIA [id number] [place] [id number] [place] AMERICANURSING PROGon 20-49-0373IEWLNUY PROGNormalDunlap Memorial HospitalPT EDon 32-04-4805OH EDNormalCUniversity Hospitals Health SystemPhosphate SerPl-mCncon 61-55-1707Cbxjejasl [Mass/Vol]4.5 mg/dL Normal2.7-4.8CMarietta Memorial Hospital on above:Order Comment: Specimen Type: BLOOD SPECIMENOrdering Facility: [facility] Address:[address] [place], [place] [address]Performed By: #### 2777-1 ####[facility] LABCLIA [id number] [address] [address] [place] AMERICATHERAPY NTon 18-47-4593TFKOKPT NTNormalCUniversity Hospitals Health SystemUS ARM VEIN DVT UNL VAS LABon 01-10-4171WI ARM VEIN DVT UNL VAS LAB NormalDunlap Memorial HospitalALLIED HEALTHon 28-41-9506EZSXRB HEALTHNormal [facility] HospitalBajane [facility] metabolic 2000 panelon 44-66-8665Qqpwf gap [Moles/Vol]9 mmol/LNormal8-15[facility] on above:Order Comment: Specimen Type: BLOOD SPECIMENOrdering Facility: [facility] Address:[address] [place], [place] [address]Performed By: #### 23217- 2, 27701-02, ####[facility] LABCLIA [id number], [place] [address] [place] AMERICACalcium [Mass/Vol]9.4 mg/dLNormal8.5-10.2CMarietta Memorial Hospital on above:Order Comment: Specimen Type: BLOOD SPECIMENOrdering Facility: [facility] Address:[address] [place], [place] [address]Performed By: #### 83326-0, 27701-02, ####[facility] LABCLIA [id number] VILLE [id number] [place] OF AMERICAChloride [Moles/Vol]100 mmol/L Bktgrr14-524PesgcgxiiTriHealth [facility] on above:Order Comment: Specimen Type: BLOOD SPECIMENOrdering Facility: [facility] Address:[address] [place], [place] [address]Performed By: #### 38638-8, 27701-02, ####[facility] LABCLIA [id number] [address] [place] AMERICACO2 [Moles/Vol]27 mmol/LNormal 22-30[facility] on above:Order Comment: Specimen Type: BLOOD SPECIMENOrdering Facility: [facility] Address:[address] [place], [place] [address]Performed By: #### 91028-3, 27701-02, ####[facility] [id number][place] [address] [place] STATES OF AMERICACreatinine [Mass/Vol]0.45 mg/dL Low0.58-0.96[facility] on above:Order Comment: Specimen Type: BLOOD SPECIMENOrdering Facility: [facility] Address:[address] [place], [place] [address]Performed By: #### 47226-2, 2776-07, ####[facility] [id number] [address] [place] AMERICACreatinine and Glomerular filtration rate.predicted panel (S/P/Bld)128 mL/min/1.73m???Normal>=60[facility] on above:Order Comment: Specimen Type: BLOOD SPECIMENOrdering Facility: [facility] Address:[address] [place], [place] [address]Result Comment: Estimated Glomerular Filtration Rate (eGFR) is calculated using the 2020 CKD-EPI creatinine equation. This equation utilizes serum creatinine, sex, and age as parameters. The creatinine assay has traceable calibration to isotope dilution-mass spectrometry. Refer to KDIGO guidelines for clinical interpretation. In patients with unstable renal function, e.g. those with acute kidney injury, the eGFR may not accurately reflect actual GFR.Performed By: #### 85587-5, 2776-07, ####[facility] [id number] VIL[place] [address] [place] AMERICAGlucose [Mass/Vol]118 mg/nOLfqh68-21HqwqfrblbTriHealth [facility] on above:Order Comment: Specimen Type: BLOOD SPECIMENOrdering Facility: [facility] Address:[address] [place], [place] [address]Result Comment: The Citizen [place] Diabetes Association (ADA) provides guidance for cutoff [...] Standards of Medical Care in Diabetes 2016, [place] Diabetes Association. Diabetes Care. 2016.39(Suppl 1).Performed By: #### 01427- 2, 2777, ####[facility] LABCLIA [id number], [place] [address] [place] AMERICAPotassium [Moles/Vol] 4.6 mmol/LNormal3.7-5.1CMarietta Memorial Hospital on above:Order Comment: Specimen Type: BLOOD SPECIMENOrdering Facility: [facility] Address:[address] [place], [place] [address]Performed By: #### 84240-8, 27701-02, ####[facility] LABIA [id number] VILLE [address] [place] AMERICASodium [Moles/Vol]136 mmol/L Lyricx804-566UmqlbzrbzTriHealth [facility] on above:Order Comment: Specimen Type: BLOOD SPECIMENOrdering Facility: [facility] Address:[address] [place], [place] [address]Performed By: #### 42527-0, 2776-07, ####[facility] LABIA [id number] [place] [id number] [place] AMERICAUrea nitrogen [Mass/Vol]17 mg/dL Normal7-21[facility] on above:Order Comment: Specimen Type: BLOOD SPECIMENOrdering Facility: [facility] Address:[address] [place], [place] [address]Performed By: #### 86089-2, 2777-1, 06593-8 ####[facility] LABCLIA [id number] [address] OF [facility] HOSPITALCBC panel Auto (Bld)on 08-27-2024 Erythrocyte distribution width (RBC) [Ratio]14.5 %Cgasrf14.5-15.0[facility] on above:Order Comment: Specimen Type: BLOOD SPECIMENOrdering Facility: [facility] Address:[address] [place], [place] [address]Performed By: #### 53135-7 ####[facility] LABCLIA [id number] [address] STATES OF [facility] HOSPITALHematocrit (Bld) [Volume fraction]25.2 %Low36.0-46.0[facility] on above:Order Comment: Specimen Type: BLOOD SPECIMENOrdering Facility: [facility] Address:[address] [place], [place] [address]Performed By: #### 75002-5 ####[facility] LABCLIA [id number] [address] STATES OF [facility] Hemoglobin (Bld) [Mass/Vol]8.0 g/dLLow11.5-15.5CMarietta Memorial Hospital on above:Order Comment: Specimen Type: BLOOD SPECIMENOrdering Facility: [facility] Address:[address] [place] [address] Performed By: #### 86628-7 ####[facility] LABCLIA [id number] [place] [address] [place] MCH (RBC) [Entitic mass]28.5 nnKlkuve54.0-34.0[facility] on above:Order Comment: Specimen Type: BLOOD SPECIMENOrdering Facility: [facility] Address:[address] [place] [address] Performed By: #### 11218-7 ####[facility] LABIA [id number] [place] [address] [place] MCHC (RBC) [Mass/Vol]31.7 g/nZHnhypb80.5-36.0[facility] on above:Order Comment: Specimen Type: BLOOD SPECIMENOrdering Facility: [facility] Address:[address] [place] [address] Performed By: #### 66452-2 ####[facility] LABIA [id number] [place] [address] [place] MCV (RBC) [Entitic vol]89.7 eATkzxzg65.0-100.0[facility] on above:Order Comment: Specimen Type: BLOOD SPECIMENOrdering Facility: [facility] Address:[address] [place] [address] Performed By: #### 24460-8 ####[facility] LABIA [id number] [place] [address] [place] Nucleated RBC (Bld) [#/Vol]10*3/uLNormal<0.01[facility] on above:Order Comment: Specimen Type: BLOOD SPECIMENOrdering Facility: [facility] Address:[address] [place] [address] Performed By: #### 85477-8 ####[facility] LABIA [id number] [place] [address] [place] Platelet mean volume (Bld) [Entitic vol]11.0 fLNormal9.0-12.7CMarietta Memorial Hospital on above:Order Comment: Specimen Type: BLOOD SPECIMENOrdering Facility: [facility] Address:[address] [place], [place] [address]Performed By: #### 62765-6 ####[facility] LABIA [id number] [place] [address] [place] Platelets (Bld) [#/Vol]298 10*3/rJOwplie896-991MlxtchhtbTriHealth [facility] on above:Order Comment: Specimen Type: BLOOD SPECIMENOrdering Facility: [facility] Address:[address] [place] [address] Performed By: #### 56483-5 ####[facility] LABIA [id number] [place] [address] [place] RBC (Bld) [#/Vol]2.81 10*6/uLLow3.90-5.20[facility] on above:Order Comment: Specimen Type: BLOOD SPECIMENOrdering Facility: [facility] Address:[address] [place], [place] [address]Performed By: #### 08271-7 ####[facility]ITAL[facility] [id number] [place] [address] [place] AMERICAWBC (Bld) [#/Vol]14.02 10*3/uLHigh3.70-11.00[facility] on above:Order Comment: Specimen Type: BLOOD SPECIMENOrdering Facility: [facility] Address:[address] [place], [place] [address]Performed By: #### 14943-8 ####[facility] [id number] [place] [address] [place] AMERICACONSULT PROGon 16-47-3784WTJVPMM PROGNormalDunlap Memorial HospitalMagnesium SerPl-mCncon 77-85-3788Ibhbhtoid [Mass/Vol]2.2 mg/dLNormal1.7-2.3CMarietta Memorial Hospital on above:Order Comment: Specimen Type: BLOOD SPECIMENOrdering Facility: [facility] Address:[address] [place], [place] [address]Performed By: #### 05184- 2, 277-1, ####[facility] LABCLIA [id number] [address] [address] [place] AMERICAPhosphate SerPl-mCnc on 64-62-0663Ibbhvyzcr [Mass/Vol]5.1 mg/dLHigh2.7-4.8ClevelRutherford Regional Health System Comment on above:Order Comment: Specimen Type: BLOOD SPECIMENOrdering Facility: [facility] Address:[address] [place], [place] [address] Performed By: #### 97327-3, 277-1, ####[facility] LABCLIA [id number] VILLE [address] [place] AMERICABasic metabolic 2000 panelon 06-89-6413Tihgh gap [Moles/Vol]9 mmol/L Normal8-15[facility] Memorial HospitalComment on above:Order Comment: Specimen Type: BLOOD SPECIMENOrdering Facility: [facility] Address:[address] [place], [place] [address]Performed By: #### 09794-6, 80957-0, 2776-07 ####[facility] LABIA [id number] VILLE [address] [place] AMERICACalcium [Mass/Vol]9.4 mg/dLNormal 8.5-10.2ClevelRutherford Regional Health SystemComment on above:Order Comment: Specimen Type: BLOOD SPECIMENOrdering Facility: [facility] Address:[address] [place] [address]Rwhkgzgmd By: #### 69089-6, 72245-1, 2776-07 ####[facility] LABIA [id number] VILLE [address] [place] AMERICAChloride [Moles/Vol]103 mmol/L Imxzng87-395KvdwdfvgqDunlap Memorial HospitalComment on above:Order Comment: Specimen Type: BLOOD SPECIMENOrdering Facility: [facility] Address:[address] [place], [place] [address]Performed By: #### 17564-7, , 2776-07 ####[facility] LABIA [id number][place] [address] [place] AMERICACO2 [Moles/Vol]25 mmol/LNormal 22-30[facility] on above:Order Comment: Specimen Type: BLOOD SPECIMENOrdering Facility: [facility] Address:[address] [place], [place] [address]Performed By: #### 82217-5, , 2776-07 ####[facility] LABBRATTLEB[facility] [id number], [place] [address] [place] AMERICACreatinine [Mass/Vol]0.45 mg/dL Low0.58-0.96[facility] on above:Order Comment: Specimen Type: BLOOD SPECIMENOrdering Facility: [facility] Address:[address] [place], [place] [address]Performed By: #### 46629-6, , 2776-07 ####[facility] LABBRATTLEBORO MEMORIAL [facility] [id number], [place] [address] [place]ICACreatinine and Glomerular filtration rate.predicted panel (S/P/Bld)128 mL/min/1.73m???Normal>=60[facility] on above:Order Comment: Specimen Type: BLOOD SPECIMENOrdering Facility: [facility] Address:[address] [place], [place] [address]Result Comment: Estimated Glomerular Filtration Rate (eGFR) is calculated using the 2020 CKD-EPI creatinine equation. This equation utilizes serum creatinine, sex, and age as parameters. The creatinine assay has traceable calibration to isotope dilution-mass spectrometry. Refer to KDIGO guidelines for clinical interpretation. In patients with unstable renal function, e.g. those with acute kidney injury, the eGFR may not accurately reflect actual GFR.Performed By: #### 22589-2, , 2776-07 ####[facility] LABIA [id number][place] [address] [place] AMERICAGlucose [Mass/Vol]141 mg/aNEnbh85-24IqmrrbirnTriHealth [facility] on above:Order Comment: Specimen Type: BLOOD SPECIMENOrdering Facility: [facility] Address:[address] [place], [place] [address]Result Comment: The [place] Diabetes Association (ADA) provides guidance for cutoff [...] Standards of Medical Care in Diabetes 2016, [place] Diabetes Association. Diabetes Care. 2016.39(Suppl 1).Performed By: #### 47939- 2, , 2776-07 ####[facility] LABCLIA [id number], [place] [address] [place] AMERICAPotassium [Moles/Vol] 4.2 mmol/LNormal3.7-5.1CMarietta Memorial Hospital on above:Order Comment: Specimen Type: BLOOD SPECIMENOrdering Facility: [facility] Address:[address] [place], [place] [address]Performed By: #### 62618-8, , 2776-07 ####[facility] LABCLIA [id number] VILLE [id number] [place] AMERICASodium [Moles/Vol]137 mmol/L Vwntio359-576OuhjogbcbTriHealth [facility] on above:Order Comment: Specimen Type: BLOOD SPECIMENOrdering Facility: [facility] Address:[address] [place], [place] [address]Performed By: #### 49564-2, , 2776-07 ####[facility] LABCLIA [id number], [place] [address] [place] AMERICAUrea nitrogen [Mass/Vol]11 mg/dL Normal7-21[facility] on above:Order Comment: Specimen Type: BLOOD SPECIMENOrdering Facility: [facility] Address:[address] [place], [place] [address]Performed By: #### 34551-2, 50021-8, 2777-1 ####[facility] LABCLIA [id number] OF [facility] HOSPITALCBC panel Auto (Bld)on 08-26-2024 Erythrocyte distribution width (RBC) [Ratio]14.3 %Ylyvwz22.5-15.0[facility] on above:Order Comment: Specimen Type: BLOOD SPECIMENOrdering Facility: [facility] Address:[address] [place], [place] [address]Performed By: #### 10080-4 ####[facility] LABIA [id number] [address] LAWR[facility] PSYCHIATRIC CENTERHematocrit (Bld) [Volume fraction]23.6 %Low36.0-46.0[facility] on above:Order Comment: Specimen Type: BLOOD SPECIMENOrdering Facility: [facility] Address:[address] [place], [place] [address]Performed By: #### 77771-1 ####[facility] LABCLIA [id number] [address] STATES OF [facility] Hemoglobin (Bld) [Mass/Vol]7.4 g/dLLow11.5-15.5CMarietta Memorial Hospital on above:Order Comment: Specimen Type: BLOOD SPECIMENOrdering Facility: [facility] Address:[address] [place] [address] Performed By: #### 30226-4 ####[facility] LABIA [id number] [address] [place] [address] [place] MCH (RBC) [Entitic mass]28.0 enJwxdgv81.0-34.0[facility] on above:Order Comment: Specimen Type: BLOOD SPECIMENOrdering Facility: [facility] Address:[address] [place] [address] Performed By: #### 24060-1 ####[facility] LABIA [id number] [place] [address] [place] MCHC (RBC) [Mass/Vol]31.4 g/uYHemuhg67.5-36.0[facility] on above:Order Comment: Specimen Type: BLOOD SPECIMENOrdering Facility: [facility] Address:[address] [place] [address] Performed By: #### 16522-8 ####[facility] LABCLIA [id number] [place] [address] [place] MCV (RBC) [Entitic vol]89.4 cFTrqcji45.0-100.0[facility] on above:Order Comment: Specimen Type: BLOOD SPECIMENOrdering Facility: [facility] Address:[address] [place] [address] Performed By: #### 90527-6 ####[facility] LABIA [id number] [place] [address] [place] Nucleated RBC (Bld) [#/Vol]10*3/uLNormal<0.01[facility] on above:Order Comment: Specimen Type: BLOOD SPECIMENOrdering Facility: [facility] Address:[address] [place] [address] Performed By: #### 79333-6 ####[facility] LABIA [id number] [place] [address] [place] Platelet mean volume (Bld) [Entitic vol]10.6 fLNormal9.0-12.7CMarietta Memorial Hospital on above:Order Comment: Specimen Type: BLOOD SPECIMENOrdering Facility: [facility] Address:[address] [place], [place] [address]Performed By: #### 13130-5 ####[facility] LABCLIA [id number] [place] [address] [place] Platelets (Bld) [#/Vol]278 10*3/yCLsyjvz461-830CedscirrgTriHealth [facility] on above:Order Comment: Specimen Type: BLOOD SPECIMENOrdering Facility: [facility] Address:[address] [place] [address] Performed By: #### 90335-3 ####[facility] LABIA [id number] [place] [address] [place] RBC (Bld) [#/Vol]2.64 10*6/uLLow3.90-5.20[facility] on above:Order Comment: Specimen Type: BLOOD SPECIMENOrdering Facility: [facility] Address:[address] [place], [place] [address]Performed By: #### 66604-7 ####[facility] LABIA [id number] [place] [address] [place] AMERICAWBC (Bld) [#/Vol]10.75 10*3/uLNormal3.70-11.00[facility] on above:Order Comment: Specimen Type: BLOOD SPECIMENOrdering Facility: [facility] Address:[address] [place], [place] [address]Performed By: #### 59431- 2 ####[facility] LABIA [id number] [place] [address] [place] AMERICACONSULT PROGon 51-82-7920LLQVCVW PROGNormalDunlap Memorial HospitalMagnesium SerPl-mCncon 70-92-8642Xeqlzpnmw [Mass/Vol]2.2 mg/dLNormal1.7-2.3CMarietta Memorial Hospital on above:Order Comment: Specimen Type: BLOOD SPECIMENOrdering Facility: [facility] Address:[address] [place] [address] [place] [id number] By: #### 77304- 2, , 2776-07 ####[facility] LABCLIA [id number] [place] [id number] [place] STATES OF AMERICANUTRITIONon 47-94-6656YMZDNLIJOEwspctOmprlxbdo Clinic ClevelandPhosphate SerPl-mCncon 40-58-4063Uqkiqgtkz [Mass/Vol]5.1 mg/dLHigh2.7-4.8CUniversity Hospitals Health System Comment on above:Order Comment: Specimen Type: BLOOD SPECIMENOrdering Facility: [facility] Address:[address] [place] [address] Performed By: #### 30345-0, , 2776-07 ####[facility] LABCLIA [id number] [address] [place] AMERICABacteria Bld Culton 60-88-7691Arudxzia identified Cx Nom (Bld)CULTURE, BLOOD: No growth 5 days GRAM STAIN: This blood culture had less than the recommended 8 ml per bottle, which could decrease the sensitivity of the test.NormalTriHealth Bethes[facility] on above:Performed By: #### 600-7 ####[facility] LABCLIA [id number] [place] [address] [place] Basic metabolic 2000 panelon 52-87-4467Hfosn gap [Moles/Vol]11 mmol/LNormal8-15 [facility] on above:Order Comment: Specimen Type: BLOOD SPECIMENOrdering Facility: [facility] Address:[address] [place], [place] [address], [place] [address]Performed By: #### 34457-9, , 2776-07 ####[facility] LABCLIA [id number] [place] [id number] [place] AMERICACalcium [Mass/Vol]8.9 mg/dLNormal8.5-10.2CMarietta Memorial Hospital on above:Order Comment: Specimen Type: BLOOD SPECIMENOrdering Facility: [facility] Address:[address] [place], [place] [address]Performed By: #### 55584-6, , 2776-07 ####[facility] LABCLIA [id number] [place] [address] [place] AMERICAChloride [Moles/Vol]104 mmol/NEeking05-414 [facility] on above:Order Comment: Specimen Type: BLOOD SPECIMENOrdering Facility: [facility] Address:[address] [place], [place] [address]Performed By: #### 88712-7, , 2776-07 ####[facility] LABIA [id number] [address] [place] AMERICACO2 [Moles/Vol]24 mmol/DYodbtl07-20CnympnvbgTriHealth [facility] on above:Order Comment: Specimen Type: BLOOD SPECIMENOrdering Facility: [facility] Address:[address] [place], [place] [address]Performed By: #### 74909-7, , 2776-07 ####[facility] LABCLIA [id number] [address] [place] AMERICACreatinine [Mass/Vol]0.43 mg/dLLow0.58-0.96 [facility] on above:Order Comment: Specimen Type: BLOOD SPECIMENOrdering Facility: [facility] Address:[address] [place], [place] [address]Performed By: #### 41481-3, , 2776-07 ####[facility] LABCLIA [id number] [place] [id number] [place] AMERICACreatinine and Glomerular filtration rate.predicted panel (S/P/Bld)129 mL/min/1.73m???Normal>=60[facility] on above:Order Comment: Specimen Type: BLOOD SPECIMENOrdering Facility: [facility] Address:[address] [place] [address]Eqxmxb Comment: Estimated Glomerular Filtration Rate (eGFR) is [...] accurately reflect actual GFR. Performed By: #### 52334-7, , 2776-07 ####[facility] LABCLIA [id number] [address] [place] AMERICAGlucose [Mass/Vol]88 mg/xXGmhmnc57-94RbpwtldvjTriHealth [facility] on above:Order Comment: Specimen Type: BLOOD SPECIMENOrdering Facility: [facility] Address:[address] [place], [place] [address] [id number] Comment: The [place] Diabetes Association (ADA) provides guidance for cutoff [...] Standards of Medical Care in Diabetes 2016, [place] Diabetes Association. Diabetes Care. 2016.39(Suppl 1).Performed By: #### 03234-1, , 2776-07 ####[facility] LABCLIA [id number] [address] [place] AMERICAPotassium [Moles/Vol]5.2 mmol/LHigh3.7-5.1 [facility] on above:Order Comment: Specimen Type: BLOOD SPECIMENOrdering Facility: [facility] Address:[address] [place], [place] [address]Performed By: #### 81771-9, 36065-5, 2776-07 ####[facility] LABCLIA [id number], [place] [address] [place] AMERICASodium [Moles/Vol]139 mmol/UZkiajp172-477EokjofupmDunlap Memorial HospitalComment on above:Order Comment: Specimen Type: BLOOD SPECIMENOrdering Facility: [facility] Address:[address] [place], [place] [address]Performed By: #### 28863-1, , 2776-07 ####[facility] LABIA [id number] [address] [place] AMERICAUrea nitrogen [Mass/Vol]15 mg/dLNormal7- [facility] Memorial HospitalComment on above:Order Comment: Specimen Type: BLOOD SPECIMENOrdering Facility: [facility] Address:[address] [place], [place] [address]Performed By: #### 81820-0, , 2776-07 ####[facility] LABIA [id number] [address] [place] AMERICACASE MANAGEMon 36-36-7926PTUN MANAGEMNormal Dunlap Memorial HospitalCB panel Auto (Bld)on 84-68-7703Ihzvfdastwu distribution width (RBC) [Ratio]14.6 %Plyzky97.5-15.0[facility] Comment on above:Order Comment: Specimen Type: BLOOD SPECIMENOrdering Facility: [facility] Address:[address] [place] [address] Performed By: #### 65879-6 ####[facility] LABIA [id number] [place] [address] [place] Hematocrit (Bld) [Volume fraction]23.3 %Low36.0-46.0[facility] Comment on above:Order Comment: Specimen Type: BLOOD SPECIMENOrdering Facility: [facility] Address:[address] [place] [address] Performed By: #### 49473-6 ####[facility] [id number] [place] [address] [place] Hemoglobin (Bld) [Mass/Vol]7.3 g/dLLow11.5-15.5CMarietta Memorial Hospital on above:Order Comment: Specimen Type: BLOOD SPECIMENOrdering Facility: [facility] Address:[address] [place] [address] Performed By: #### 60430-0 ####[facility] [id number] [place] [address] [place] MCH (RBC) [Entitic mass]30.0 xaHooohg71.0-34.0[facility] on above:Order Comment: Specimen Type: BLOOD SPECIMENOrdering Facility: [facility] Address:[address] [place] [address] Performed By: #### 27733-9 ####[facility] [id number] [place] [address] [place] MCHC (RBC) [Mass/Vol]31.3 g/kDZbllnk67.5-36.0[facility] on above:Order Comment: Specimen Type: BLOOD SPECIMENOrdering Facility: [facility] Address:[address] [place] [address] Performed By: #### 26365-9 ####[facility] [id number] [place] [address] [place] MCV (RBC) [Entitic vol]95.9 oTPnxnov51.0-100.0[facility] on above:Order Comment: Specimen Type: BLOOD SPECIMENOrdering Facility: [facility] Address:[address] [place] [address] Performed By: #### 50054-4 ####[facility] [id number] [place] [address] [place] Nucleated RBC (Bld) [#/Vol]0.06 10*3/uLHigh<0.01[facility] Comment on above:Order Comment: Specimen Type: BLOOD SPECIMENOrdering Facility: [facility] Address:[address] [place] [address] Performed By: #### 29470-9 ####[facility] [id number] [place] [address] [place] Platelet mean volume (Bld) [Entitic vol]11.9 fLNormal9.0-12.7[facility] on above:Order Comment: Specimen Type: BLOOD SPECIMENOrdering Facility: [facility] Address:[address] [address] [place], [place] [address]Performed By: #### 92761-8 ####[facility] [id number] [place] [address] [place] Platelets (Bld) [#/Vol]264 10*3/eBEsfkrr655-730NnewzqxgtDunlap Memorial HospitalComment on above:Order Comment: Specimen Type: BLOOD SPECIMENOrdering Facility: [facility] Address:[address] [place] [address] Performed By: #### 38494-3 ####[facility] [id number] [place] [address] [place] RBC (Bld) [#/Vol]2.43 10*6/uLLow3.90-5.20[facility] on above:Order Comment: Specimen Type: BLOOD SPECIMENOrdering Facility: [facility] Address:[address] [place], [place] [address]Performed By: #### 73483-5 ####[facility] [id number] [place] [address] [place] AMERICAWBC (Bld) [#/Vol]11.52 10*3/uLHigh3.70-11.00Dunlap Memorial HospitalComment on above:Order Comment: Specimen Type: BLOOD SPECIMENOrdering Facility: [facility] Address:[address] [place], [place] [address]Result Comment: No clot detected.Results checked and verified.Performed By: #### 59083-7 ####[facility] LABCLIA [id number] [place] [address] [place] AMERICACONSULT PROGon 81-68-2075PRIHISE PROGNormal Dunlap Memorial HospitalMagnesium SerPl-mCncon 40-02-8383Pqaziuyxz [Mass/Vol] 2.4 mg/dLHigh1.7-2.3CUniversity Hospitals Health SystemComment on above:Order Comment: Specimen Type: BLOOD SPECIMENOrdering Facility: [facility] Address:[address] [place], [place] [address]Performed By: #### 76793-3, 35083-8, 2777-1 ####[facility] LABCLIA [id number] [address] [place] AMERICAPhosphate SerPl-mCncon 18-57-8554Mfilzrfsb [Mass/Vol]4.7 mg/dLNormal2.7-4.8CUniversity Hospitals Health System Comment on above:Order Comment: Specimen Type: BLOOD SPECIMENOrdering Facility: [facility] Address:[address] [place] [address] Performed By: #### 76030-0, 38110-2, 2777-1 ####[facility] LABIA [id number][place] [address] [place] AMERICATHERAPY NTon 37-89-6841FAFUZEP NTNormalCleveland Unc Health Blue RidgeTHERAPY NTNormalCUniversity Hospitals Health SystemALLIED HEALTHon 08-29-0578OWSDZR HEALTHNormal [facility]lap [facility] HospitalBasic metabolic 2000 panelon 44-21-0051Esmkg gap [Moles/Vol]9 mmol/LNormal8-15[facility] on above:Order Comment: Specimen Type: BLOOD SPECIMENOrdering Facility: [facility] Address:[address] [place], [place] [address]Performed By: #### 79382- 2, , 2776-07 ####[facility] LABCLIA [id number] [address] [place] AMERICACalcium [Mass/Vol]9.0 mg/dLNormal8.5-10.2CMarietta Memorial Hospital on above:Order Comment: Specimen Type: BLOOD SPECIMENOrdering Facility: [facility] Address:[address] [place], [place] [address]Performed By: #### 76119-5, , 2776-07 ####[facility] LABCLIA [id number] [address] [place] AMERICAChloride [Moles/Vol]100 mmol/L Adfxpw96-013OvjbytesjTriHealth [facility] on above:Order Comment: Specimen Type: BLOOD SPECIMENOrdering Facility: [facility] Address:[address] [place], [place] [address]Performed By: #### 91221-8, , 2776-07 ####[facility] LABCLIA [id number] [address] [place] AMERICACO2 [Moles/Vol]28 mmol/LNormal 22-30[facility] on above:Order Comment: Specimen Type: BLOOD SPECIMENOrdering Facility: [facility] Address:[address] [place], [place] [address]Performed By: #### 93601-5, , 2776-07 ####[facility] LABCLIA [id number] [place] [id number] [place] AMERICACreatinine [Mass/Vol]0.39 mg/dL Low0.58-0.96[facility] on above:Order Comment: Specimen Type: BLOOD SPECIMENOrdering Facility: [facility] Address:[address] [place], [place] [address]Performed By: #### 73493-4, , 2776-07 ####[facility] LABIA [id number][place] [address] [place] AMERICACreatinine and Glomerular filtration rate.predicted panel (S/P/Bld)133 mL/min/1.73m???Normal>=60[facility] on above:Order Comment: Specimen Type: BLOOD SPECIMENOrdering Facility: [facility] Address:[address] [place], [place] [address]Result Comment: Estimated Glomerular Filtration Rate (eGFR) is calculated using the 2020 CKD-EPI creatinine equation. This equation utilizes serum creatinine, sex, and age as parameters. The creatinine assay has traceable calibration to isotope dilution-mass spectrometry. Refer to KDIGO guidelines for clinical interpretation. In patients with unstable renal function, e.g. those with acute kidney injury, the eGFR may not accurately reflect actual GFR.Performed By: #### 64234-9, , 2776-07 ####[facility] LABIA [id number] VIL[place] [address] [place] AMERICAGlucose [Mass/Vol]106 mg/nLHepy16-96FvysxlbccTriHealth [facility] on above:Order Comment: Specimen Type: BLOOD SPECIMENOrdering Facility: [facility] Address:[address] [place], [place] [address]Result Comment: The [place] Diabetes Association (ADA) provides guidance for cutoff [...] Standards of Medical Care in Diabetes 2016, [place] Diabetes Association. Diabetes Care. 2016.39(Suppl 1).Performed By: #### 47891- 2, 08201-6, 2776- ####[facility] LABCLIA [id number] [place] [id number] [place] AMERICAPotassium [Moles/Vol] 3.8 mmol/LNormal3.7-5.1CUniversity Hospitals Health SystemComtrinity health [facility] hospital on above:Order Comment: Specimen Type: BLOOD SPECIMENOrdering Facility: [facility] Address:[address] [place], [place] [address]Performed By: #### 81037-4, , 2776-07 ####[facility] LABIA [id number], [place] [address] [place] AMERICASodium [Moles/Vol]137 mmol/L Wtveef879-988KezzxfizpMercy Health Perrysburg Hospitalment on above:Order Comment: Specimen Type: BLOOD SPECIMENOrdering Facility: [facility] Address:[address] [place], [place] [address]Performed By: #### 77125-5, , 2776-07 ####[facility] LABIA [id number], [place] [address] [place] AMERICAUrea nitrogen [Mass/Vol]7 mg/dL Normal7-21[facility] on above:Order Comment: Specimen Type: BLOOD SPECIMENOrdering Facility: [facility] Address:[address] [place], [place] [address]Performed By: #### 91426-4, , 2776-07 ####[facility] LABIA [id number] VILLE [address] [facility]ALTHCARE OF AMERICACBC panel Auto (Bld)on 08-24-2024 Erythrocyte distribution width (RBC) [Ratio]13.7 %Ncidyx37.5-15.0[facility] on above:Order Comment: Specimen Type: BLOOD SPECIMENOrdering Facility: [facility] Address:[address] [place], [place] [address]Performed By: #### 27091-2 ####[facility] LABIA [id number] [place] [address] [place] AMERICAHematocrit (Bld) [Volume fraction]23.4 %Low36.0-46.0[facility] on above:Order Comment: Specimen Type: BLOOD SPECIMENOrdering Facility: [facility] Address:[address] [place], [place] [address]Performed By: #### 28399-0 ####[facility] LABIA [id number] [place] [address] [place] Hemoglobin (Bld) [Mass/Vol]7.5 g/dLLow11.5-15.5CMarietta Memorial Hospital on above:Order Comment: Specimen Type: BLOOD SPECIMENOrdering Facility: [facility] Address:[address] [place] [address] Performed By: #### 15817-5 ####[facility] LABIA [id number] [place] [address] [place] MCH (RBC) [Entitic mass]28.3 mzNvtdmh61.0-34.0[facility] on above:Order Comment: Specimen Type: BLOOD SPECIMENOrdering Facility: [facility] Address:[address] [place] [address] Performed By: #### 38453-1 ####[facility] LABIA [id number] [place] [address] [place] MCHC (RBC) [Mass/Vol]32.1 g/hWNatkxz94.5-36.0[facility] on above:Order Comment: Specimen Type: BLOOD SPECIMENOrdering Facility: [facility] Address:[address] [place] [address] Performed By: #### 47560-5 ####[facility] LABIA [id number] [place] [address] [place] MCV (RBC) [Entitic vol]88.3 sMMxuijs36.0-100.0[facility] on above:Order Comment: Specimen Type: BLOOD SPECIMENOrdering Facility: [facility] Address:[address] [place] [address] Performed By: #### 88112-0 ####[facility] LABIA [id number] [place] [address] [place] Nucleated RBC (Bld) [#/Vol]10*3/uLNormal<0.01[facility] on above:Order Comment: Specimen Type: BLOOD SPECIMENOrdering Facility: [facility] Address:[address] [place] [address] Performed By: #### 84971-8 ####[facility] [id number] [place] [address] [place] Platelet mean volume (Bld) [Entitic vol]10.6 fLNormal9.0-12.7CMarietta Memorial Hospital on above:Order Comment: Specimen Type: BLOOD SPECIMENOrdering Facility: [facility] Address:[address] [place], [place] [address]Performed By: #### 68705-0 ####[facility] [id number] [place] [address] [place] Platelets (Bld) [#/Vol]217 10*3/iFOjxtds695-040BojnwzaxpTriHealth [facility] on above:Order Comment: Specimen Type: BLOOD SPECIMENOrdering Facility: [facility] Address:[address] [place] [address] Performed By: #### 08143-3 ####[facility] LABIA [id number] [place] [address] [place] RBC (Bld) [#/Vol]2.65 10*6/uLLow3.90-5.20[facility] on above:Order Comment: Specimen Type: BLOOD SPECIMENOrdering Facility: [facility] Address:[address] [place], [place] [address]Performed By: #### 47545-3 ####[facility] LABCLIA [id number] [place] [address] [place] AMERICAWBC (Bld) [#/Vol]8.64 10*3/uLNormal3.70-11.00[facility] on above:Order Comment: Specimen Type: BLOOD SPECIMENOrdering Facility: [facility] Address:[address] [place], [place] [address]Performed By: #### 11462-1 ####[facility] LABCLIA [id number] [place] [address] [place] AMERICACONSULT PROGon 73-53-3468JBOPORR PROGNormalDunlap Memorial HospitalMagnesium SerPl-mCncon 53-26-7966Jxgzmgvdu [Mass/Vol]1.9 mg/dLNormal1.7-2.3CMarietta Memorial Hospital on above:Order Comment: Specimen Type: BLOOD SPECIMENOrdering Facility: [facility] Address:[address] [place], [place] [address]Performed By: #### 52728- 2, 93314-9, 2777-1 ####[facility] LABCLIA [id number] [place] [address] [place] AMERICANURSING PROGon 00-97-5173CZCXLJK PROGNormalDunlap Memorial HospitalPT EDon 80-70-9125IM ED NormalDunlap Memorial HospitalPhosphate SerPl-mCncon 34-34-8871Wvzhqdtyw [Mass/Vol]5.5 mg/dLHigh2.7-4.8CMarietta Memorial Hospital on above:Order Comment: Specimen Type: BLOOD SPECIMENOrdering Facility: [facility] Address:[address] [place], [place] [address]Result Comment: Result rechecked.Performed By: #### 22386-5, 16710-4, 2776- ####[facility] LABCLIA [id number] [place] [id number] [place] AMERICABasic metabolic 2000 panelon 79-31-8799Bkggb gap [Moles/Vol]8 mmol/LNormal8-15[facility] on above:Order Comment: Specimen Type: BLOOD SPECIMENOrdering Facility: [facility] Address:[address] [place], [place] [address]Performed By: #### 60579-5, , 2776-07 ####[facility] LABIA [id number] [address] [place] AMERICACalcium [Mass/Vol]8.5 mg/dL Normal8.5-10.2CMarietta Memorial Hospital on above:Order Comment: Specimen Type: BLOOD SPECIMENOrdering Facility: [facility] Address:[address] [place], [place] [address]Performed By: #### 18087-2, , 2776-07 ####[facility] LABIA [id number], [place] [address] [place] AMERICAChloride [Moles/Vol]95 mmol/LLow 98-107[facility] on above:Order Comment: Specimen Type: BLOOD SPECIMENOrdering Facility: [facility] Address:[address] [place], [place] [address]Performed By: #### 33013-1, , 2776-07 ####[facility] LABIA [id number] [place]IL[place] [id number] [place] AMERICACO2 [Moles/Vol]30 mmol/LNormal 22-30[facility] on above:Order Comment: Specimen Type: BLOOD SPECIMENOrdering Facility: [facility] Address:[address] [place], [place] [address]Performed By: #### 21356-6, , 2776-07 ####[facility] LABCLIA [id number][place] [address] [place] AMERICACreatinine [Mass/Vol]0.42 mg/dL Low0.58-0.96[facility] on above:Order Comment: Specimen Type: BLOOD SPECIMENOrdering Facility: [facility] Address:[address] [place], [place] [address]Performed By: #### 19104-1, , 2776-07 ####[facility] LABIA [id number], [place] [address] [place]ICACreatinine and Glomerular filtration rate.predicted panel (S/P/Bld)130 mL/min/1.73m???Normal>=60[facility] on above:Order Comment: Specimen Type: BLOOD SPECIMENOrdering Facility: [facility] Address:[address] [place], [place] [address]Result Comment: Estimated Glomerular Filtration Rate (eGFR) is calculated using the 2020 CKD-EPI creatinine equation. This equation utilizes serum creatinine, sex, and age as parameters. The creatinine assay has traceable calibration to isotope dilution-mass spectrometry. Refer to KDIGO guidelines for clinical interpretation. In patients with unstable renal function, e.g. those with acute kidney injury, the eGFR may not accurately reflect actual GFR.Performed By: #### 49674-0, , 2776-07 ####[facility] LABIA [id number] VIL[place] [id number] [place] AMERICAGlucose [Mass/Vol]119 mg/bUSxtk57-49ZbnfubfbiTriHealth [facility] on above:Order Comment: Specimen Type: BLOOD SPECIMENOrdering Facility: [facility] Address:[address] [place], [place] [address]Result Comment: The [place] Diabetes Association (ADA) provides guidance for cutoff [...] Standards of Medical Care in Diabetes 2016, [place] Diabetes Association. Diabetes Care. 2016.39(Suppl 1).Performed By: #### 33623- 2, , 2776-07 ####[facility] LABIA [id number], [place] [address] [place] AMERICAPotassium [Moles/Vol] 3.6 mmol/LLow3.7-5.1CMarietta Memorial Hospital on above:Order Comment: Specimen Type: BLOOD SPECIMENOrdering Facility: [facility] Address:[address] [place], [place] [address]Performed By: #### 69781-1, , 2776-07 ####[facility] LABIA [id number] [address] [place] AMERICASodium [Moles/Vol]133 mmol/LLow 136-144[facility] on above:Order Comment: Specimen Type: BLOOD SPECIMENOrdering Facility: [facility] Address:[address] [place], [place] [address]Performed By: #### 20072-1, , 2776-07 ####[facility] LABIA [id number] [address] [place] AMERICAUrea nitrogen [Mass/Vol]4 mg/dL Low7-21[facility] on above:Order Comment: Specimen Type: BLOOD SPECIMENOrdering Facility: [facility] Address:[address] [place], [place] [address]Performed By: #### 51625-4, , 2776-07 ####[facility] LABIA [id number] [place] [address] [place] AMERICACASE MANAGEMon 88-73-0040FHOD MANAGEMNormalDunlap Memorial HospitalCASE MANAGEMNormalDunlap Memorial HospitalCBC panel Auto (Bld)on 73-58-4813Yukgyeilweo distribution width (RBC) [Ratio]13.5 %Mvkuex98.5-15.0[facility] on above:Order Comment: Specimen Type: BLOOD SPECIMENOrdering Facility: [facility] Address:[address] [place], [place] [address]Performed By: #### 90549- 2 ####[facility] LABIA [id number] [address] STATES OF [facility] GENERAL HOSPITALHematocrit (Bld) [Volume fraction]23.3 %Low36.0-46.0[facility] on above:Order Comment: Specimen Type: BLOOD SPECIMENOrdering Facility: [facility] Address:[address] [place], [place] [address]Performed By: #### 11266- 2 ####[facility] LABIA [id number] [address] STATES OF [facility] GENERAL HOSPITALHemoglobin (Bld) [Mass/Vol]7.5 g/dLLow11.5-15.5CMarietta Memorial Hospital on above:Order Comment: Specimen Type: BLOOD SPECIMENOrdering Facility: [facility] Address:[address] [place], [place] [address]Performed By: #### 16896-6 ####[facility] LABIA [id number] [place] [address] [place] AMERICAMCH (RBC) [Entitic mass]28.0 pg Lbwdlt63.0-34.0[facility] on above:Order Comment: Specimen Type: BLOOD SPECIMENOrdering Facility: [facility] Address:[address] [place], [place] [address]Performed By: #### 68038-4 ####[facility] LABIA [id number] [address] GOOD[address] STREETMCHC (RBC) [Mass/Vol]32.2 g/dL Dnfrct39.5-36.0[facility] on above:Order Comment: Specimen Type: BLOOD SPECIMENOrdering Facility: [facility] Address:[address] [place], [place] [address]Performed By: #### 19873-4 ####[facility] LABCLIA [id number] [address] GOOD[address] STREETMCV (RBC) [Entitic vol]86.9 fL Npsfng64.0-100.0[facility] on above:Order Comment: Specimen Type: BLOOD SPECIMENOrdering Facility: [facility] Address:[address] [place], [place] [address]Performed By: #### 99822-2 ####[facility] LABIA [id number] [address]ETucleated RBC (Bld) [#/Vol] 10*3/uLNormal<0.01[facility] on above:Order Comment: Specimen Type: BLOOD SPECIMENOrdering Facility: [facility] Address:[address] [place], [place] [address]Performed By: #### 63045-5 ####[facility] LABIA [id number] [place] [address] [place] AMERICAPlatelet mean volume (Bld) [Entitic vol]9.9 fLNormal9.0-12.7CMarietta Memorial Hospital on above: Order Comment: Specimen Type: BLOOD SPECIMENOrdering Facility: [facility] Address:[address] [place], [place] [address]Performed By: #### 05602- 2 ####[facility] LABCLIA [id number] [place] [address] [place] AMERICAPlatelets (Bld) [#/Vol]226 10*3/bFHsukly480-424AsgivhyjcTriHealth [facility] on above:Order Comment: Specimen Type: BLOOD SPECIMENOrdering Facility: [facility] Address:[address] [place], [place] [address]Performed By: #### 67301-2 ####[facility] LABCLIA [id number] [place] [address] [place] AC[place] HEALTHCARE OF AMERICARBC (Bld) [#/Vol]2.68 10*6/uLLow 3.90-5.20[facility] on above:Order Comment: Specimen Type: BLOOD SPECIMENOrdering Facility: [facility] Address:[address] [place], [place] [address]Performed By: #### 25004-6 ####[facility] LABCLIA [id number] [address] STATES OF [facility] GENERAL HOSPITALWBC (Bld) [#/Vol]9.24 10*3/uLNormal3.70-11.00[facility] on above:Order Comment: Specimen Type: BLOOD SPECIMENOrdering Facility: [facility] Address:[address] [place], [place] [address]Performed By: #### 73050-1 ####[facility] LABCLIA [id number] [place] [address] [place] AMERICACONSULT PROGon 76-19-7643KZXVHNJ PROGNormalDunlap Memorial Hospital Magnesium SerPl-mCncon 65-65-8480Gvljaipzn [Mass/Vol]1.7 mg/dLNormal1.7-2.3 [facility] on above:Order Comment: Specimen Type: BLOOD SPECIMENOrdering Facility: [facility] Address:[address] [place], [place] [address]Performed By: #### 65849-5, 39683-7, 2777-1 ####[facility] LABCLIA [id number] [place] [address] [place] AMERICAPhosphate SerPl-mCncon 46-09-5399Puvfgjgue [Mass/Vol]2.2 mg/dLLow2.7-4.8CMarietta Memorial Hospital on above:Order Comment: Specimen Type: BLOOD SPECIMENOrdering Facility: [facility] Address:[address] [place], [place] [address]Performed By: #### 69011- 2, 97952-8, 2776-07 ####[facility] LABCLIA [id number] VIL[place] [id number] [place] AMERICATHERAPY NTon 28-31-6279AYVXXCM NTNormalCleveland Unc Health Blue RidgeTHERAPY NTNormalCleveland [facility] HEALTHon 40-03-5950AEAIHE HEALTHNormalCleveland [facility] HEALTHNormalCregency hospital companyand [facility] HEALTHNormal Dunlap Memorial HospitalBasi metabolic 2000 panelon 99-45-3950Ieqlm gap [Moles/Vol]7 mmol/LLow8-15[facility] on above:Order Comment: Specimen Type: BLOOD SPECIMENOrdering Facility: [facility] Address:[address] [place], [place] [address]Performed By: #### 30568- 2, , 2776-07 ####[facility] LABCLIA [id number] VILLE [id number] [place] AMERICACalcium [Mass/Vol]8.6 mg/dLNormal8.5-10.2CMarietta Memorial Hospital on above:Order Comment: Specimen Type: BLOOD SPECIMENOrdering Facility: [facility] Address:[address] [place], [place] [address]Performed By: #### 55960-5, 46406-7, 2776-07 ####[facility] LABCLIA [id number] VILLE [id number] [place] AMERICAChloride [Moles/Vol]97 mmol/LLow 98-107[facility] on above:Order Comment: Specimen Type: BLOOD SPECIMENOrdering Facility: [facility] Address:[address] [place], [place] [address]Performed By: #### 10239-5, , 2776-07 ####[facility] LABIA [id number], [place] [address] [place] AMERICACO2 [Moles/Vol]30 mmol/LNormal 22-30[facility] on above:Order Comment: Specimen Type: BLOOD SPECIMENOrdering Facility: [facility] Address:[address] [place], [place] [address]Performed By: #### 83695-5, , 2776-07 ####[facility] LABIA [id number], [place] [address] [place] AMERICACreatinine [Mass/Vol]0.44 mg/dL Low0.58-0.96[facility] on above:Order Comment: Specimen Type: BLOOD SPECIMENOrdering Facility: [facility] Address:[address] [place], [place] [address]Performed By: #### 54547-9, , 2776-07 ####[facility]IA [id number] [address] [facility] OF AMERICACreatinine and Glomerular filtration rate.predicted panel (S/P/Bld)129 mL/min/1.73m???Normal>=60[facility] on above:Order Comment: Specimen Type: BLOOD SPECIMENOrdering Facility: [facility] Address:[address] [place], [place] [address]Result Comment: Estimated Glomerular Filtration Rate (eGFR) is calculated using the 2020 CKD-EPI creatinine equation. This equation utilizes serum creatinine, sex, and age as parameters. The creatinine assay has traceable calibration to isotope dilution-mass spectrometry. Refer to KDIGO guidelines for clinical interpretation. In patients with unstable renal function, e.g. those with acute kidney injury, the eGFR may not accurately reflect actual GFR.Performed By: #### 77121-2, , 2776-07 ####[facility] LABCLIA [id number] VILLE [id number] [place] OF AMERICAGlucose [Mass/Vol]104 mg/eGLviv37-50DzeqlefjjTriHealth [facility] on above:Order Comment: Specimen Type: BLOOD SPECIMENOrdering Facility: [facility] Address:[address] [place], [place] [id number] Comment: The [place] Diabetes Association (ADA) provides guidance for cutoff [...] Standards of Medical Care in Diabetes 2016, [place] Diabetes Association. Diabetes Care. 2016.39(Suppl 1).Performed By: #### [id number]- 2, , 2776-07 ####WOOD [facility] [id number], [place] [address] [place] AMERICAPotassium [Moles/Vol] 3.9 mmol/LNormal3.7-5.1CMarietta Memorial Hospital on above:Order Comment: Specimen Type: BLOOD SPECIMENOrdering Facility: [facility] Address:[address] [place], [place] [address]Performed By: #### 92684-0, , 2776-07 ####[facility] [id number], [place] [address] [place] AMERICASodium [Moles/Vol]134 mmol/LLow 136-144[facility] on above:Order Comment: Specimen Type: BLOOD SPECIMENOrdering Facility: [facility] Address:[address] [place], [place] [address]Performed By: #### 29430-1, , 2776-07 ####[facility] [id number] [address] [place] AMERICAUrea nitrogen [Mass/Vol]4 mg/dL Low7-21[facility] on above:Order Comment: Specimen Type: BLOOD SPECIMENOrdering Facility: [facility] Address:[address] [place], [place] [address]Performed By: #### 05472-6, 17853-9, 2776-07 ####[facility] [id number] [address] [place] AMERICAAnion gap [Moles/Vol]12 mmol/L Normal8-15[facility] on above:Order Comment: Specimen Type: BLOOD SPECIMENOrdering Facility: [facility] Address:[address] [place], [place] [address]Performed By: #### 62000-5, 2777-1, 2571-02, ####[facility] [id number] [place] [address] [place] AMERICACalcium [Mass/Vol]8.7 mg/dLNormal8.5-10.2CMarietta [facility] Hospital on above:Order Comment: Specimen Type: BLOOD SPECIMENOrdering Facility: [facility] Address:[address] [place], [place] [address]Performed By: #### 29878-7, 277-, 2571-02, ####[facility] [id number] [address] [address] [place] OF AMERICAChloride [Moles/Vol]93 mmol/LQqx92-369BkuwagrevTriHealth Bethes[facility] on above:Order Comment: Specimen Type: BLOOD SPECIMENOrdering Facility: [facility] Address:[address] [place], [place] [address]Performed By: #### 77740-0, 2777-1, 2571-02, ####[facility] [id number] [place] [id number] [place] AMERICACO2 [Moles/Vol]27 mmol/XLqzzwb81-09RebfyphyuTriHealth Bethes[facility] on above:Order Comment: Specimen Type: BLOOD SPECIMENOrdering Facility: [facility] Address:[address] [place], [place] [address]Performed By: #### 76849-5, 2777-1, 2570-8, ####[facility] [id number] [place] [address] [place] OF AMERICACreatinine [Mass/Vol] 0.48 mg/dLLow0.58-0.96[facility] on above:Order Comment: Specimen Type: BLOOD SPECIMENOrdering Facility: [facility] Address:[address] [place], [place] [address]Performed By: #### 04341-5, 2777-1, 2571-02, ####[facility] [id number] [address] STATES OF [facility] HOSPITALCreatinine and Glomerular filtration rate.predicted panel (S/P/Bld)126 mL/min/1.73m???Normal >=60[facility] on above:Order Comment: Specimen Type: BLOOD SPECIMENOrdering Facility: [facility] Address:[address] [place], [place] [address]Result Comment: Estimated Glomerular Filtration Rate (eGFR) is calculated using the 2020 CKD-EPI creatinine equation. This equation utilizes serum creatinine, sex, and age as parameters. The creatinine assay has traceable calibration to isotope dilution-mass spectrometry. Refer to KDIGO guidelines for clinical interpretation. In patients with unstable renal function, e.g. those with acute kidney injury, the eGFR may not accurately reflect actual GFR.Performed By: #### 26176-8, 2777-1, 2570-8, ####[facility] [id number] [address] [address] [place] AMERICAGlucose [Mass/Vol]96 mg/dLNormal 74-99[facility] on above:Order Comment: Specimen Type: BLOOD SPECIMENOrdering Facility: [facility] Address:[address] [place], [place] [address]Result Comment: The [place] Diabetes Association (ADA) provides guidance for cutoff [...] Standards of Medical Care in Diabetes 2016, [place] Diabetes Association. Diabetes Care. 2016.39(Suppl 1).Performed By: #### 37757- 2, 2777-1, 2571-02, ####[facility] [id number] [place] [address] [place] Potassium [Moles/Vol]3.3 mmol/LLow3.7-5.1CMari[facility] on above:Order Comment: Specimen Type: BLOOD SPECIMENOrdering Facility: [facility] Address:[address] [place], [place] [address]Performed By: #### 07248-1, 2777-1, 2571-02, ####[facility] [id number] [place] [address] [place] Sodium [Moles/Vol]132 mmol/BSts131-628ZbtwnnfnnTriHealth [facility] on above:Order Comment: Specimen Type: BLOOD SPECIMENOrdering Facility: [facility] Address:[address] [place], [place] [address]Performed By: #### 37891-4, 2777-1, 2571-02, ####[facility] [id number] [address] [address] [place] Urea nitrogen [Mass/Vol]5 mg/dLLow7-21[facility] on above:Order Comment: Specimen Type: BLOOD SPECIMENOrdering Facility: [facility] Address:[address] [place], [place] [address]Performed By: #### 62378-7, 2777-1, 2571-8, 66595-5 ####[facility] [id number] [place] [id number] [place] CASE MANAGEMon 52-10-1784ZXQK MANAGEMNormalDunlap Memorial HospitalCASE MANAGEMNormalDunlap Memorial HospitalCASE MANAGEMNormalDunlap Memorial HospitalCBC panel Auto (Bld)on 95-95-8214Ngdyghvrwrb distribution width (RBC) [Ratio]13.3 %Gfwheu37.5-15.0[facility] on above:Order Comment: Specimen Type: BLOOD SPECIMENOrdering Facility: [facility] Address:[address] [place], [place] [address]Performed By: #### 00102- 2 ####[facility] [id number] [place] [id number] [place] AMERICAHematocrit (Bld) [Volume fraction]26.1 %Low36.0-46.0[facility] on above:Order Comment: Specimen Type: BLOOD SPECIMENOrdering Facility: [facility] Address:[address] [place], [place] [address]Performed By: #### 25382- 2 ####[facility] [id number] [place] [id number] [place] AMERICAHemoglobin (Bld) [Mass/Vol]8.4 g/dLLow11.5-15.5CMarietta [facility] on above:Order Comment: Specimen Type: BLOOD SPECIMENOrdering Facility: [facility] Address:[address] [place], [place] [address]Performed By: #### 36649-5 ####[facility] [id number] [address] (RBC) [Entitic mass]27.9 pg Yonziv92.0-34.0[facility] on above:Order Comment: Specimen Type: BLOOD SPECIMENOrdering Facility: [facility] Address:[address] [place], [place] [address]Performed By: #### 41506-5 ####[facility] [id number] [address] (RBC) [Mass/Vol]32.2 g/dL Bsvkmq86.5-36.0[facility] on above:Order Comment: Specimen Type: BLOOD SPECIMENOrdering Facility: [facility] Address:[address] [place], [place] [address]Performed By: #### 63930-4 ####[facility] [id number] [address] (RBC) [Entitic vol]86.7 fL Iylnnq17.0-100.0[facility] on above:Order Comment: Specimen Type: BLOOD SPECIMENOrdering Facility: [facility] Address:[address] [place], [place] [address]Performed By: #### 68039-7 ####[facility] [id number] [address] RBC (Bld) [#/Vol] 10*3/uLNormal<0.01[facility] on above:Order Comment: Specimen Type: BLOOD SPECIMENOrdering Facility: [facility] Address:[address] [place], [place] [address]Performed By: #### 54401-4 ####[facility] [id number] [address] [id number], [place] [address] [place] AMERICAPlatelet mean volume (Bld) [Entitic vol]10.0 fLNormal9.0-12.7CMarietta Memorial Hospital on above: Order Comment: Specimen Type: BLOOD SPECIMENOrdering Facility: [facility] Address:[address] [place], [place] [address]Performed By: #### 20937- 2 ####[facility] [id number] [place] [address] [place] AMERICAPlatelets (Bld) [#/Vol]265 10*3/bSVigtby033-883OuwgbehlrTriHealth [facility] on above:Order Comment: Specimen Type: BLOOD SPECIMENOrdering Facility: [facility] Address:[address] [place], [place] [address]Performed By: #### 86654-9 ####[facility] [id number] [place] [address] [place] AMERICARBC (Bld) [#/Vol]3.01 10*6/uLLow 3.90-5.20[facility] on above:Order Comment: Specimen Type: BLOOD SPECIMENOrdering Facility: [facility] Address:[address] [place], [place] [address]Performed By: #### 41783-8 ####[facility] [id number] [place] [address] [place] AMERICAWBC (Bld) [#/Vol]10.62 10*3/uLNormal3.70-11.00[facility] on above:Order Comment: Specimen Type: BLOOD SPECIMENOrdering Facility: [facility] Address:[address] [place], [place] [address]Performed By: #### 81119-8 ####[facility] [id number] [place] [address] [place] AMERICAErythrocyte distribution width (RBC) [Ratio]13.5 %Axmbgb56.5-15.0 [facility] on above:Order Comment: Specimen Type: BLOOD SPECIMENOrdering Facility: [facility] Address:[address] [place], [place] [address]Performed By: #### 08680-4 ####[facility] [id number] [place] [address] [place] AMERICAHematocrit (Bld) [Volume fraction]26.9 %Low36.0-46.0[facility] on above:Order Comment: Specimen Type: BLOOD SPECIMENOrdering Facility: [facility] Address:[address] [place], [place] [address]Performed By: #### 09693-0 ####[facility] [id number] [place] [address] [place] Hemoglobin (Bld) [Mass/Vol]8.8 g/dLLow11.5-15.5CMarietta Memorial Hospital on above:Order Comment: Specimen Type: BLOOD SPECIMENOrdering Facility: [facility] Address:[address] [place] [address] Performed By: #### 62945-4 ####[facility] [id number] [place] [address] [place] MCH (RBC) [Entitic mass]28.5 sxZfqfxx98.0-34.0[facility] on above:Order Comment: Specimen Type: BLOOD SPECIMENOrdering Facility: [facility] Address:[address] [place] [address] Performed By: #### 40885-4 ####[facility] [id number] [place] [address] [place] MCHC (RBC) [Mass/Vol]32.7 g/vTMivyui90.5-36.0[facility] on above:Order Comment: Specimen Type: BLOOD SPECIMENOrdering Facility: [facility] Address:[address] [place] [address] Performed By: #### 01077-3 ####[facility] [id number] [place] [address] [place] MCV (RBC) [Entitic vol]87.1 zLYwxpaz17.0-100.0[facility] on above:Order Comment: Specimen Type: BLOOD SPECIMENOrdering Facility: [facility] Address:[address] [place] [address] Performed By: #### 07750-9 ####[facility] [id number] [place] [address] [place] Nucleated RBC (Bld) [#/Vol]10*3/uLNormal<0.01[facility] on above:Order Comment: Specimen Type: BLOOD SPECIMENOrdering Facility: [facility] Address:[address] [place] [address] Performed By: #### 07050-9 ####[facility] [id number] [place] [address] [place] Platelet mean volume (Bld) [Entitic vol]10.1 fLNormal9.0-12.7CMarietta Memorial Hospital on above:Order Comment: Specimen Type: BLOOD SPECIMENOrdering Facility: [facility] Address:[address] [place], [place] [address]Performed By: #### 47705-6 ####[facility] [id number] [place] [address] [place] Platelets (Bld) [#/Vol]287 10*3/zWAouehf664-557LjpxhcmphTriHealth [facility] on above:Order Comment: Specimen Type: BLOOD SPECIMENOrdering Facility: [facility] Address:[address] [place] [address] Performed By: #### 86060-4 ####[facility] [id number] [place] [address] [place] RBC (Bld) [#/Vol]3.09 10*6/uLLow3.90-5.20[facility] on above:Order Comment: Specimen Type: BLOOD SPECIMENOrdering Facility: [facility] Address:[address] [place], [place] [address]Performed By: #### 89274-4 ####[facility] [id number] [place] [address] [place] AMERICAWBC (Bld) [#/Vol]14.28 10*3/uLHigh3.70-11.00[facility] on above:Order Comment: Specimen Type: BLOOD SPECIMENOrdering Facility: [facility] Address:[address] [place], [place] [address]Performed By: #### 65626-5 ####[facility] [id number] [place] [address] [place] AMERICACONSULT PROGon 95-70-2057HVINRRL PROGNormalDunlap Memorial HospitalMagnesium SerPl-mCncon 72-63-1423Bccbkrlin [Mass/Vol]2.1 mg/dLNormal1.7-2.3CMarietta [facility] Hospital on above:Order Comment: Specimen Type: BLOOD SPECIMENOrdering Facility: [facility] Address:[address] [place], [place] [address]Performed By: #### 50317- 2, 27945-1, 2777-1 ####[facility] [id number] [place] [address] [place] AMERICAMagnesium [Mass/Vol] 2.7 mg/dLHigh1.7-2.3CMarietta [facility] on above:Order Comment: Specimen Type: BLOOD SPECIMENOrdering Facility: [facility] Address:[address] [place], [place] [address]Result Comment: Result rechecked. Performed By: #### 80754-8, 277-1, 2570-8, ####[facility] [id number] [place] [id number] [place] AMERICAPhosphate SerPl-mCncon 18-65-8642Eahljreay [Mass/Vol]2.0 mg/dL Low2.7-4.8ClevelSycamore Medical Center on above:Order Comment: Specimen Type: BLOOD SPECIMENOrdering Facility: [facility] Address:[address] [place], [place] [address]Performed By: #### 96525-9, 40019-6, 2776-07 ####[facility] [id number] [address] STATES OF AMERICAPhosphate [Mass/Vol]3.0 mg/dL Normal2.7-4.8ClevelSycamore Medical Center on above:Order Comment: Specimen Type: BLOOD SPECIMENOrdering Facility: [facility] Address:[address] [place], [place] [address]Performed By: #### 56129-4, 2777-1, 8, ####[facility] [id number] [place] [address] [place] AMERICATHERAPY NTon 40-31-9955LFNMXXR NTNormalCleveland Unc Health Blue RidgeTHERAPY NTNormalCleveland Unc Health Blue RidgeTrigl SerPl-mCncon 84-88-6525Mrhhzuqubujr [Mass/Vol]134 mg/dL Normal<150[facility] on above:Order Comment: Specimen Type: BLOOD SPECIMENOrdering Facility: [facility] Address:[address] [place], [place] [address]Result Comment: <150 mg/dL, Normal 150-199 mg/dL, Borderline high 200-499 mg/dL, High>499 mg/dL, Very highReference:1. National Cholesterol Education Program ATP III Guideline At-A-Glance QuickDesk Reference: National Heart, Lung, and Blood [place]. National Institutes of Health. 2001: NIHPublication No. 030.Performed By: #### 02878-8, 2777-1, 2570-8, ####[facility] [id number] [address] [address] [place] AMERICATriglyceride [Mass/Vol]on 89-67-8419LJGKHQL TIME8 hrsNormalCMarietta Memorial Hospital on above: Order Comment: Specimen Type: BLOOD SPECIMENOrdering Facility: [facility] Address:[address] [place], [place] [address]Performed By: #### 99945- 2, 2777-1, 8, ####[facility] [id number] [place] [id number] [place] AMERICAALLIED HEALTHon 93-51-5126ORZHCZ HEALTHNoalCUniversity Hospitals Health SystemBasic metabolic 2000 panelon 36-32-4229Wkwaw gap [Moles/Vol]11 mmol/LNormal8-15[facility] on above:Order Comment: Specimen Type: BLOOD SPECIMENOrdering Facility: [facility] Address:[address] [place], [place] [address]Performed By: #### 1987-11, , , ####[facility] [id number] [place] [id number] [place] AMERICACalcium [Mass/Vol]8.7 mg/dLNormal8.5-10.2CMarietta [facility] on above:Order Comment: Specimen Type: BLOOD SPECIMENOrdering Facility: [facility] Address:[address] [place], [place] [address]Performed By: #### 1987-11, , 03066-8, ####[facility] [id number] [place] [id number] [place] AMERICAChloride [Moles/Vol]93 mmol/LLow 98-107[facility] on above:Order Comment: Specimen Type: BLOOD SPECIMENOrdering Facility: [facility] Address:[address] [place] [address]Nmqhdlcoe By: #### 1987-11, 16157-1, , ####[facility] [id number] [address] [address] [place] AMERICACO2 [Moles/Vol]28 mmol/LNormal 22-30[facility] on above:Order Comment: Specimen Type: BLOOD SPECIMENOrdering Facility: [facility] Address:[address] [place] [address]Cfaibpozh By: #### 1987-11, , , ####[facility] [id number] [address] [address] [place] AMERICACreatinine [Mass/Vol]0.49 mg/dL Low0.58-0.96[facility] on above:Order Comment: Specimen Type: BLOOD SPECIMENOrdering Facility: [facility] Address:[address] [place], [place] [address]Performed By: #### 1987-11, , , ####[facility] [id number] [place] [id number] [place] AMERICACreatinine and Glomerular filtration rate.predicted panel (S/P/Bld)125 mL/min/1.73m???Normal >=60[facility] on above:Order Comment: Specimen Type: BLOOD SPECIMENOrdering Facility: [facility] Address:[address] [place], [place] [address]Result Comment: Estimated Glomerular Filtration Rate (eGFR) is [...] actual GFR.Performed By: #### 1987-11, , , ####[facility] [id number] [place] [id number] [place] AMERICAGlucose [Mass/Vol]93 mg/dLNormal 74-99[facility] on above:Order Comment: Specimen Type: BLOOD SPECIMENOrdering Facility: [facility] Address:[address] [place], [place] [address]Result Comment: The [place] Diabetes Association (ADA) provides guidance for cutoff [...] Standards of Medical Care in Diabetes 2016, [place] Diabetes Association. Diabetes Care. 2016.39(Suppl 1).Performed By: #### 1987-11, , , ####[facility] [id number] [place] [address] [place] Potassium [Moles/Vol]2.9 mmol/LLow3.7-5.1CMarietta [facility] on above:Order Comment: Specimen Type: BLOOD SPECIMENOrdering Facility: [facility] Address:[address] [place], [place] [address]Mlcxnrgvf By: #### 1987-11, , , ####[facility] [id number] [place] [id number] [place] Sodium [Moles/Vol]132 mmol/VAim967-821VesnadufhTriHealth Bethes[facility] on above:Order Comment: Specimen Type: BLOOD SPECIMENOrdering Facility: [facility] Address:[address] [place], [place] [address]Performed By: #### 1987-, , , ####[facility] [id number] [place] [address] [place] Urea nitrogen [Mass/Vol]10 mg/dLNormal7-21[facility] on above:Order Comment: Specimen Type: BLOOD SPECIMENOrdering Facility: [facility] Address:[address] [place], [place] [address]Performed By: #### 1987-11, , , ####[facility] [id number] [place] [address] [place] CASE MANAGEMon 64-70-5775NEAC MANAGEMNormalDunlap Memorial HospitalCASE MGT INIT ASSESon 74-22-4933BINC MGT INIT Formerly [facility]ots[facility] General HospitalalCUniversity Hospitals Health SystemCB panel Auto (Bld)on 00-49-6645Fijqxorlben distribution width (RBC) [Ratio]13.7 % Kuyxqc50.5-15.0[facility] on above:Order Comment: Specimen Type: BLOOD SPECIMENOrdering Facility: [facility] Address:[address] [place], [place] [address]Performed By: #### 81727-4 ####[facility] [id number] [place] [address] [place] AMERICAHematocrit (Bld) [Volume fraction]27.8 %Low36.0-46.0[facility] on above:Order Comment: Specimen Type: BLOOD SPECIMENOrdering Facility: [facility] Address:[address] [place], [place] [address]Performed By: #### 45641- 2 ####[facility] [id number] [address]UEDES[address] [id number] CRAWFORD STREETHemoglobin (Bld) [Mass/Vol]9.2 g/dLLow11.5-15.5CMarietta [facility] on above:Order Comment: Specimen Type: BLOOD SPECIMENOrdering Facility: [facility] Address:[address] [place], [place] [address]Performed By: #### 25821-1 ####[facility] [id number] [address] (RBC) [Entitic mass]28.5 pg Doamjn79.0-34.0[facility] on above:Order Comment: Specimen Type: BLOOD SPECIMENOrdering Facility: [facility] Address:[address] [place], [place] [address]Performed By: #### 54085-3 ####[facility] [id number] [address]HC (RBC) [Mass/Vol]33.1 g/dL Abrhwi12.5-36.0[facility] on above:Order Comment: Specimen Type: BLOOD SPECIMENOrdering Facility: [facility] Address:[address] [place], [place] [address]Performed By: #### 21199-4 ####[facility] [id number] [address]V (RBC) [Entitic vol]86.1 fL Jtfdzv04.0-100.0[facility] on above:Order Comment: Specimen Type: BLOOD SPECIMENOrdering Facility: [facility] Address:[address] [place], [place] [address]Performed By: #### 34599-1 ####[facility] [id number] [address]ETucleated RBC (Bld) [#/Vol] 10*3/uLNormal<0.01[facility] ClevelandComment on above:Order Comment: Specimen Type: BLOOD SPECIMENOrdering Facility: [facility] Address:[address] [place], [place] [address]Performed By: #### 27191-2 ####[facility] [id number] [place] [id number] [place] AMERICAPlatelet mean volume (Bld) [Entitic vol]10.2 fLNormal9.0-12.7CMarietta [facility] on above: Order Comment: Specimen Type: BLOOD SPECIMENOrdering Facility: [facility] Address:[address] [place], [place] [address]Performed By: #### 29719- 2 ####[facility] [id number] [place] [id number] [place] AMERICAPlatelets (Bld) [#/Vol]279 10*3/yRFtflew813-618UdxdxmentTriHealth [facility] on above:Order Comment: Specimen Type: BLOOD SPECIMENOrdering Facility: [facility] Address:[address] [place], [place] [id number] By: #### 95157-1 ####[facility] LABIA [id number] [place] [address] [place] AMERICARBC (Bld) [#/Vol]3.23 10*6/uLLow 3.90-5.20[facility] on above:Order Comment: Specimen Type: BLOOD SPECIMENOrdering Facility: [facility] Address:[address] [place], [place] [address]Performed By: #### 91979-7 ####[facility] LABIA [id number] [place] [address] [place] AMERICAWBC (Bld) [#/Vol]14.98 10*3/uLHigh3.70-11.00[facility] on above:Order Comment: Specimen Type: BLOOD SPECIMENOrdering Facility: [facility] Address:[address] [place], [place] [address]Performed By: #### 01597-2 ####[facility] LABCLIA [id number] [place] [id number] [place] OF AMERICACONSULTon [id number] Clinic ClevelandCONWE[facility] PROG on [id number] PROGNormalDunlap Memorial HospitalCONLT PROGNormal [facility] HospitalCRP SerPl-mCncon [id number] [Mass/Vol]28.8 mg/dL High<0.9CUniversity Hospitals Health SystemComment on above:Order Comment: Specimen Type: BLOOD SPECIMENOrdering Facility: [facility] Address:[address] [place], [place] [address]Performed By: #### 1987-11, , , ####[facility] LABCLIA [id number] [place] [id number] [place] OF AMERICAHepatic function 2000 panelon 58-14-4182Nabtdwo [Mass/Vol]2.9 g/dLLow3.9-4.9ClevelRutherford Regional Health System Comment on above:Order Comment: Specimen Type: BLOOD SPECIMENOrdering Facility: [facility] Address:[address] [place] [address] Performed By: #### 1987-11, , , ####[facility] LABCLIA [id number] [place] [id number] [place] AMERICAALP [Catalytic activity/Vol]82 U/GFbzqdc92-941ZrsqwxgqdDunlap Memorial HospitalComtrinity health [facility] on above:Order Comment: Specimen Type: BLOOD SPECIMENOrdering Facility: [facility] Address:[address] [place], [place] [address]Performed By: #### 1987-11, , , ####[facility] LABCLIA [id number] [place] [id number] [place] AMERICAALT [Catalytic activity/Vol]11 U/LNormal7-38[facility] on above:Order Comment: Specimen Type: BLOOD SPECIMENOrdering Facility: [facility] Address:[address] [place], [place] [address]Performed By: #### 1987-11, 50347-5, 34943-5, ####[facility] LABCLIA [id number] [place] [address] [place] AMERICAAST [Catalytic activity/Vol]12 U/KIuz45-79UnjifzbcgTriHealth [facility] on above:Order Comment: Specimen Type: BLOOD SPECIMENOrdering Facility: [facility] Address:[address] [place], [place] [address]Performed By: #### 1987-11, , , ####[facility] LABCLIA [id number] [place] [address] [place] AMERICABilirubin [Mass/Vol] 0.3 mg/dLNormal0.2-1.3CMarietta Memorial Hospital on above:Order Comment: Specimen Type: BLOOD SPECIMENOrdering Facility: [facility] Address:[address] [place], [place] [address]Performed By: #### 1987-11, , , ####[facility] LABCLIA [id number] [place] [address] [place] AMERICABilirubin.conjugated [Mass/Vol]0.1 mg/dLNormal<0.3CMarietta Memorial Hospital on above:Order Comment: Specimen Type: BLOOD SPECIMENOrdering Facility: [facility] Address:[address] [place], [place] [address]Performed By: #### , , , ####[facility] LABCLIA [id number] [place] [address] [place] Protein [Mass/Vol]5.8 g/dLLow6.3-8.0[facility] on above: Order Comment: Specimen Type: BLOOD SPECIMENOrdering Facility: [facility] Address:[address] [place], [place] [address]Performed By: #### , 76430-5, 42853-7, ####[facility] LABCLIA [id number] [place] [address] [place] Magnesium SerPl-mCncon 71-95-0305Yvqcotqrc [Mass/Vol]1.6 mg/dLLow1.7-2.3 [facility] on above:Order Comment: Specimen Type: BLOOD SPECIMENOrdering Facility: [facility] Address:[address] [place], [place] [address]Performed By: #### 1987-11, , , ####[facility] LABCLIA [id number] [place] [address] [place] AMERICAPT EDon 62-42-6292AU EDNormal Dunlap Memorial HospitalPhosphate SerPl-mCncon 88-13-7966Urokychmp [Mass/Vol] 2.1 mg/dLLow2.7-4.8CMarietta Memorial Hospital on above:Order Comment: Specimen Type: BLOOD SPECIMENOrdering Facility: [facility] Address:[address] [place], [place] [address]Performed By: #### 2777-1 ####[facility] LABCLIA [id number] [place] [address] [place] OF AMERICAUS ARM VEIN DVT UNL VAS LABon 62-18-4571AR ARM VEIN DVT UNL VAS LABNormalCTogus VA Medical Center 96-66-2447TYPMNW HEALTHNormalCUniversity Hospitals Health SystemCONSULT PROGon 07-86-7160IKOJRHQ PROGNormalDunlap Memorial HospitalNURSING PROGon 08-20-2024 NURSING PROGNormalProMedica Defiance Regional [facility] 43-73-0129UJIOCZ HEALTHNormalClevelRutherford Regional Health SystemBajane [facility] metabolic 2000 panelon 08-19-2024 Anion gap [Moles/Vol]15 mmol/LNormal8-15[facility] on above:Order Comment: Specimen Type: BLOOD SPECIMENOrdering Facility: [facility] Address:[address] [place], [place] [address]Performed By: #### 43672-7, , 2776-07 ####[facility] LABCLIA [id number] VILLE [id number] [place] Calcium [Mass/Vol]8.6 mg/dLNormal8.5-10.2CMarietta Memorial Hospital on above:Order Comment: Specimen Type: BLOOD SPECIMENOrdering Facility: [facility] Address:[address] [place], [place] [address]Performed By: #### 87937-7, , 2776-07 ####[facility] LABCLIA [id number] VILLE [address] [place] Chloride [Moles/Vol]101 mmol/RMfhcnb61-374WdxjphrahTriHealth [facility]hes[facility] on above:Order Comment: Specimen Type: BLOOD SPECIMENOrdering Facility: [facility] Address:[address] [place], [place] [address]Performed By: #### 20218-8, , 2776-07 ####[facility] LABCLIA [id number] [place]IL[place] [id number] [place] CO2 [Moles/Vol]19 mmol/LAxv85-88YjpgrhyzqTriHealth [facility] on above:Order Comment: Specimen Type: BLOOD SPECIMENOrdering Facility: [facility] Address:[address] [place], [place] [address]Performed By: #### 39560- 2, , 2776-07 ####[facility] LABCLIA [id number] [place] [address] [place] AMERICACreatinine [Mass/Vol] 0.49 mg/dLLow0.58-0.96[facility] on above:Order Comment: Specimen Type: BLOOD SPECIMENOrdering Facility: [facility] Address:[address] [place], [place] [address]Performed By: #### 61056-2, , 2776-07 ####[facility] LABIA [id number] [address] [place] AMERICACreatinine and Glomerular filtration rate.predicted panel (S/P/Bld)125 mL/min/1.73m???Normal>=60[facility] on above:Order Comment: Specimen Type: BLOOD SPECIMENOrdering Facility: [facility] Address:[address] [place], [place] [address]Result Comment: Estimated Glomerular Filtration Rate (eGFR) is calculated using the 2020 CKD-EPI creatinine equation. This equation utilizes serum creatinine, sex, and age as parameters. The creatinine assay has traceable calibration to isotope dilution-mass spectrometry. Refer to KDIGO guidelines for clinical interpretation. In patients with unstable renal function, e.g. those with acute kidney injury, the eGFR may not accurately reflect actual GFR.Performed By: #### 36719-9, , 2776-07 ####[facility] LABIA [id number] VILLE [address] [place] AMERICAGlucose [Mass/Vol]78 mg/aHCgrvzk05-76FwizrclpaTriHealth [facility] on above:Order Comment: Specimen Type: BLOOD SPECIMENOrdering Facility: [facility] Address:[address] [place], [place] [address]Result Comment: The Citizen [place] Diabetes Association (ADA) provides guidance for cutoff [...] Standards of Medical Care in Diabetes 2016, [place] Diabetes Association. Diabetes Care. 2016.39(Suppl 1).Performed By: #### 64033- 2, , 2776-07 ####[facility] LABCLIA [id number] [place] [id number] [place] AMERICAPotassium [Moles/Vol] 4.3 mmol/LNormal3.7-5.1CMarietta Memorial Hospital on above:Order Comment: Specimen Type: BLOOD SPECIMENOrdering Facility: [facility] Address:[address] [place], [place] [address]Performed By: #### 57342-3, , 2776-07 ####[facility] LABCLIA [id number]REETSodium [Moles/Vol]135 mmol/LLow 136-144[facility] on above:Order Comment: Specimen Type: BLOOD SPECIMENOrdering Facility: [facility] Address:[address] [place], [place] [address]Performed By: #### 11573-0, , 2776-07 ####[facility] LABIA [id number] STATES OF AMERICAUrea nitrogen [Mass/Vol]7 mg/dL Normal7-21[facility] on above:Order Comment: Specimen Type: BLOOD SPECIMENOrdering Facility: [facility] Address:[address] [place], [place] [address]Performed By: #### 30448-3, , 2776-07 ####[facility] LABCLIA [id number] [address] [facility] AMERICACBC panel Auto (Bld)on 08-19-2024 Erythrocyte distribution width (RBC) [Ratio]14.3 %Lpetfj01.5-15.0[facility] on above:Order Comment: Specimen Type: BLOOD SPECIMENOrdering Facility: [facility] Address:[address] [place], [place] [address]Performed By: #### 31371-7 ####[facility] LABIA [id number] [place] [address] [place] AMERICAHematocrit (Bld) [Volume fraction]34.7 %Low36.0-46.0[facility] on above:Order Comment: Specimen Type: BLOOD SPECIMENOrdering Facility: [facility] Address:[address] [place], [place] [address]Performed By: #### 76068-7 ####[facility] [id number] [place] [address] [place] Hemoglobin (Bld) [Mass/Vol]10.4 g/dLLow11.5-15.5CUniversity Hospitals Health System Comment on above:Order Comment: Specimen Type: BLOOD SPECIMENOrdering Facility: [facility] Address:[address] [place] [address] Performed By: #### 96508-0 ####[facility] LABIA [id number] [place] [address] [place] MCH (RBC) [Entitic mass]28.6 ngUunhmn69.0-34.0[facility] on above:Order Comment: Specimen Type: BLOOD SPECIMENOrdering Facility: [facility] Address:[address] [place] [address] Performed By: #### 28720-9 ####[facility] [id number] [place] [address] [place] MCHC (RBC) [Mass/Vol]30.0 g/dLLow30.5-36.0[facility] on above:Order Comment: Specimen Type: BLOOD SPECIMENOrdering Facility: [facility] Address:[address] [place], [place] [address]Performed By: #### 27480-6 ####[facility] LABCLIA [id number] [place] [address] [place] AMERICAMCV (RBC) [Entitic vol]95.3 dDXigpfd24.0-100.0[facility] on above:Order Comment: Specimen Type: BLOOD SPECIMENOrdering Facility: [facility] Address:[address] [place], [place] [address]Performed By: #### 84180- 2 ####[facility] LABCLIA [id number] [address] STATES AMERICANucleated RBC (Bld) [#/Vol] 10*3/uLNormal<0.01[facility] on above:Order Comment: Specimen Type: BLOOD SPECIMENOrdering Facility: [facility] Address:[address] [place], [place] [address]Performed By: #### 57675-6 ####[facility] LABIA [id number] [address] STATES OF AMERICAPlatelet mean volume (Bld) [Entitic vol]10.4 fLNormal9.0-12.7CMarietta Memorial Hospital on above: Order Comment: Specimen Type: BLOOD SPECIMENOrdering Facility: [facility] Address:[address] [place], [place] [address]Performed By: #### 35851- 2 ####[facility] LABCLIA [id number] [place] [address] [place] AMERICAPlatelets (Bld) [#/Vol]254 10*3/pNHfexuk669-514CqnvwzzpuTriHealth [facility] on above:Order Comment: Specimen Type: BLOOD SPECIMENOrdering Facility: [facility] Address:[address] [place], [place] [address]Performed By: #### 43262-4 ####[facility] LABIA [id number] [place] [id number] [place] AMERICARBC (Bld) [#/Vol]3.64 10*6/uLLow 3.90-5.20[facility]lap Memorial HospitalComment on above:Order Comment: Specimen Type: BLOOD SPECIMENOrdering Facility: [facility] Address:[address] [place], [place] [address]Performed By: #### 51581-3 ####[facility] [id number] [place] [id number] [facility] OF AMERICAWBC (Bld) [#/Vol]10.36 10*3/uLNormal3.70-11.00[facility] on above:Order Comment: Specimen Type: BLOOD SPECIMENOrdering Facility: [facility] Address:[address] [place], [place] [address]Performed By: #### 24038-0 ####[facility] [id number] [address] STATES OF AMERICACONSULTon 18-67-6603LQJALJTIuzcaxRfhatwxho Clinic ClevelandCONSULT PROG on 58-61-0850CQVYWLQ PROGNormalDunlap Memorial HospitalMagnesium SerPl-mCncon 27-09-9994Iglmycnwi [Mass/Vol]1.3 mg/dLLow1.7-2.3CUniversity Hospitals Health System Comment on above:Order Comment: Specimen Type: BLOOD SPECIMENOrdering Facility: [facility] Address:[address] [place] [address] Performed By: #### 09301-4, 52209-2, 2777-1 ####[facility] LABBRATTLEB[facility] [id number] [place] [address] [place] STATES OF AMERICANURSING PROGon 57-82-4792FMRXRZP PROGNormalPremier Health [facility] Phosphate SerPl-mCncon 07-09-9875Asaksmagz [Mass/Vol]3.7 mg/dLNormal2.7-4.8 [facility] on above:Order Comment: Specimen Type: BLOOD SPECIMENOrdering Facility: [facility] Address:[address] [place], [place] [address]Performed By: #### 75262-5, 56733-7, 2777-1 ####[facility] LABCLIA [id number] [address] [place] AMERICAANES POSTPROC EVALon 32-50-2636WWOB POSTPROC EVAL NormalDunlap Memorial HospitalANES PRE-OPon 27-98-9812KETH PRE-OPNormal [facility] Memorial HospitalBacteria Bld Culton 18-85-7432Yoabbryn identified Cx Nom (Bld)CULTURE, BLOOD: No growth 5 daysNormalCMarietta Memorial Hospital on above:Performed By: #### 600-7 ####[facility] LABCLIA [id number] [place] [address] [place] AMERICABasic metabolic 2000 panelon 00-80-1619Eilwq gap [Moles/Vol]10 mmol/LNormal8-15[facility] on above:Order Comment: Specimen Type: BLOOD SPECIMENOrdering Facility: [facility] Address:[address] [place], [place] [address]Performed By: #### 36253-2 ####[facility] LABCLIA [id number] [place] [address] [place] Calcium [Mass/Vol]8.5 mg/dLNormal8.5-10.2CMarietta Memorial Hospital on above:Order Comment: Specimen Type: BLOOD SPECIMENOrdering Facility: [facility] Address:[address] [place], [place] [address]Performed By: #### 85872-7 ####[facility] LABCLIA [id number] [place] [address] [place] AMERICAChloride [Moles/Vol] 103 mmol/DMasssz58-821UfeocvwpxTriHealth [facility] on above:Order Comment: Specimen Type: BLOOD SPECIMENOrdering Facility: [facility] Address:[address] [place], [place] [address]Performed By: #### 85128-8 ####[facility] LABIA [id number] [place] [address] [place] AMERICACO2 [Moles/Vol]27 mmol/LNormal 22-30[facility] on above:Order Comment: Specimen Type: BLOOD SPECIMENOrdering Facility: [facility] Address:[address] [place], [place] [address]Performed By: #### 58847-1 ####[facility] LABIA [id number] [address] STATES OF [facility] HOSPITALCreatinine [Mass/Vol]0.56 mg/dLLow0.58-0.96[facility] on above:Order Comment: Specimen Type: BLOOD SPECIMENOrdering Facility: [facility] Address:[address] [place], [place] [address]Performed By: #### 14082-6 ####[facility]ITALIA [id number] [address] [place] Creatinine and Glomerular filtration rate.predicted panel (S/P/Bld)121 mL/min/1.73m???Normal>=60[facility] on above:Order Comment: Specimen Type: BLOOD SPECIMENOrdering Facility: [facility] Address:[address] [place], [place] [address]Result Comment: Estimated Glomerular Filtration Rate (eGFR) is [...] not accurately reflect actual GFR.Performed By: #### 81598-1 ####[facility] LABIA [id number] [place] [address] [place] AMERICAGlucose [Mass/Vol]84 mg/dLNormal 74-99[facility] on above:Order Comment: Specimen Type: BLOOD SPECIMENOrdering Facility: [facility] Address:[address] [place], [place] [address]Result Comment: The [place] Diabetes Association (ADA) provides guidance for cutoff [...] Standards of Medical Care in Diabetes 2016, [place] Diabetes Association. Diabetes Care. 2016.39(Suppl 1).Performed By: #### 68009-9 ####[facility] LABCLIA [id number] [place] [address] [place] AMERICAPotassium [Moles/Vol]3.7 mmol/L Normal3.7-5.1CMarietta Memorial Hospital on above:Order Comment: Specimen Type: BLOOD SPECIMENOrdering Facility: [facility] Address:[address] [place], [place] [address]Performed By: #### 97446-7 ####[facility] LABCLIA [id number] [place] [address] [place] AMERICASodium [Moles/Vol]140 mmol/JLftihg256-498HzjxsnvoeTriHealth [facility] on above:Order Comment: Specimen Type: BLOOD SPECIMENOrdering Facility: [facility] Address:[address] [place], [place] [address]Performed By: #### 31857-9 ####[facility] LABCLIA [id number] [place] [address] [place] AMERICAUrea nitrogen [Mass/Vol]10 mg/dLNormal7-21[facility] Comment on above:Order Comment: Specimen Type: BLOOD SPECIMENOrdering Facility: [facility] Address:[address] [place] [address] Performed By: #### 31424-6 ####[facility] LABCLIA [id number] [place] [address] [place] CBC panel Auto (Bld)on 72-10-7076Ezwrcqlmnmm distribution width (RBC) [Ratio] 14.5 %Tcfnsd86.5-15.0[facility] on above:Order Comment: Specimen Type: BLOOD SPECIMENOrdering Facility: [facility] Address:[address] [place], [place] [address]Performed By: #### 80568-3 ####[facility] LABIA [id number] [address] STATES OF [facility]AL HOSPITALHematocrit (Bld) [Volume fraction]29.6 %Low36.0-46.0[facility] Hospitalment on above:Order Comment: Specimen Type: BLOOD SPECIMENOrdering Facility: [facility] Address:[address] [place], [place] [address]Performed By: #### 51796- 2 ####[facility] LABIA [id number] [place] [address] [place] AMERICAHemoglobin (Bld) [Mass/Vol]9.6 g/dLLow11.5-15.5CMarietta Memorial Hospital on above:Order Comment: Specimen Type: BLOOD SPECIMENOrdering Facility: [facility] Address:[address] [place], [place] [address]Performed By: #### 28061-9 ####[facility] LABIA [id number] [place] [address] [place] AMERICAMCH (RBC) [Entitic mass]28.4 pg Uutvaa36.0-34.0[facility] on above:Order Comment: Specimen Type: BLOOD SPECIMENOrdering Facility: [facility] Address:[address] [place], [place] [address]Performed By: #### 63580-6 ####[facility] LABCLIA [id number] [address] STREETMCHC (RBC) [Mass/Vol]32.4 g/dL Ifmyab59.5-36.0[facility] on above:Order Comment: Specimen Type: BLOOD SPECIMENOrdering Facility: [facility] Address:[address] [place], [place] [address]Performed By: #### 21283-0 ####[facility] LABCLIA [id number] [address]REETMCV (RBC) [Entitic vol]87.6 fL Nlnhwu33.0-100.0[facility] on above:Order Comment: Specimen Type: BLOOD SPECIMENOrdering Facility: [facility] Address:[address] [place], [place] [address]Performed By: #### 39622-5 ####[facility] LABCLIA [id number] [address]ucleated RBC (Bld) [#/Vol] 10*3/uLNormal<0.01[facility] on above:Order Comment: Specimen Type: BLOOD SPECIMENOrdering Facility: [facility] Address:[address] [place], [place] [address]Performed By: #### 70469-0 ####[facility] LABCLIA [id number] [address] STREETPlatelet mean volume (Bld) [Entitic vol]10.3 fLNormal9.0-12.7CMarietta Memorial Hospital on above: Order Comment: Specimen Type: BLOOD SPECIMENOrdering Facility: [facility] Address:[address] [place], [place] [address]Performed By: #### 31779- 2 ####[facility] LABCLIA [id number] [address] [address] [place] AMERICAPlatelets (Bld) [#/Vol]274 10*3/wZHhkcfg282-585JsdhippkrTriHealth [facility] on above:Order Comment: Specimen Type: BLOOD SPECIMENOrdering Facility: [facility] Address:[address] [place], [place] [address]Performed By: #### 82812-5 ####[facility] LABCLIA [id number] [place] [id number] [facility] OF AMERICARB (Bld) [#/Vol]3.38 10*6/uLLow 3.90-5.20[facility] on above:Order Comment: Specimen Type: BLOOD SPECIMENOrdering Facility: [facility] Address:[address] [place], [place] [address]Performed By: #### 63342-9 ####[facility] LABIA [id number] [address] OF AMERICAWBC (Bld) [#/Vol]6.27 10*3/uLNormal3.70-11.00[facility] on above:Order Comment: Specimen Type: BLOOD SPECIMENOrdering Facility: [facility] Address:[address] [place], [place] [address]Performed By: #### 01700-5 ####[facility] LABIA [id number] [place] [id number] [place] AMERICACONSULTon 89-74-2264ANWWLNSEalzcpPdryksuoj Clinic ClevelandCONSULT PROG on 16-95-8566EBCWTXF PROGNormalDunlap Memorial HospitalCONLT PROGNormal [facility] HospitalOPERATIVE NOon 88-68-6603MCIQVUHFM NONormalDunlap Memorial HospitalPathology biopsy report Eliu (Tiss)on 95-81-1564SCUFFCEH 1:Normal [facility] on above:Order Comment: Specimen Type: TISSUE SPECIMENOrdering Facility: [facility] Address: [address] [place], [place] [address]Result Comment: AFB and GMS stains performed on blocks A13 and A16 are negative for acid fast bacteria and fungal organisms, respectively. All controls are adequate.Addendum electronically signed by Karoline Dukes MD on 08/29/2024 at 1309 ESTPerformed By: #### 78253-5 ####[facility] LABCLIA [id number] [address] [address] [facility] HOSPITALCASE REPORTNoUniversity Hospitals Portage [facility] on above: Order Comment: Specimen Type: TISSUE SPECIMENOrdering Facility: [facility] Address: [address] [place], [place] [address]Result Comment: Surgical Pathology Report Case: [id number] Provider: Elsy Rousseau DO Collected: 08/18/2024 02:46 PMOrdering Location: Admitting Received: 08/18/2024 05:47 PMPathologist: Karoline Dukes MDSpecimen: Colon and Small Bowel, Right Hemicolectomy, distal small bowel and part of ascending colonPerformed By: #### 87357-6 ####[facility] LABCLIA [id number] [place] [id number] [facility] HOSPITALCLINICAL HISTORYNormal [facility] on above:Order Comment: Specimen Type: TISSUE SPECIMENOrdering Facility: [facility] Address: [address] [place], [place] [address]Result Comment: Pre-op diagnosis:Crohn's disease (HCC) [K50.90]Performed By: #### 43525-7 ####[facility] LABCLIA [id number] [address] [address] [facility] DIAGNOSIS COMMENTNoUniversity [facility]als [facility] on above:Order Comment: Specimen Type: TISSUE SPECIMENOrdering Facility: [facility] Address: [address] [place], [place] [id number] By: #### [id number] ####[facility] LABCLIA [id number] [address] [place] [address] [facility]FIN[facility] DIAGNOSISNormalCMarietta Memorial Hospital on above:Order Comment: Specimen Type: TISSUE SPECIMENOrdering Facility: [facility] Address: [address] [place], [place] [id number] Comment: Distal small bowel and part of ascending colon, right hemicolectomy:- Chronic active colitis with ulcer, extensive pyloric gland metaplasia, granulomas and transmural lymphoid aggregates, negative for dysplasia. See comment.- One lymph node, negative for neoplasm (0/1). at 1151 EST Performed By: #### 58169-7 ####[facility] LABCLIA [id number] [address] [address] [facility] FINAL [facility] LABNoalCMarietta Memorial Hospital on above:Order Comment: Specimen Type: TISSUE SPECIMENOrdering Facility: [facility] [facility] Address: [address] [place], [place] [address]Result Comment: Diagnostic interpretation performed at: [facility], [address] [place] [address] CLIA# [id number] Director: Krunal Morganformed By: #### 05580-0 ####[facility] LABCLIA [id number] [address] [address] [facility] HOSPITALGROSS DESCRIPTIONNormBarney Children's Medical Center on above:Order Comment: Specimen Type: TISSUE SPECIMENOrdering Facility: [facility] Address: [address] [place] [address]Qhtinu Comment: A. Colon and Small Bowel, Right [...] is inked greenRepresentative sections are submitted as follows:[employer] Solder Stripper sections from distal to proximal as follows:A1- proximal and distal margins, perpendicularA2- sales representative printing sections of the colonA3- anastomotic siteA4-A6- fourth stricture, sales representative printing sectionsA7- area between stricture #4 and stricture #8L7-H89- third stricture, sales representative printing elsipfbpZ53-enti between stricture #3 and stricture #2M88-Q36- second stricture, sales representative printing ndzhruakQ47- area between stricture #2 and stricture #0H19-G12- stricture #1, sales representative printing fjvatipaR70- sales representative printing section of small bowel 3 cm from the proximal nmjkyhX52- sales representative printing lymph nodesPerformed By: #### 23927-0 ####[facility] LABBR[facility] [id number] [address] [facility] HOSPITALXR ABDOMEN 1V SUPINEon 19-16-1826QD ABDOMEN 1V SUPINENormAvita Health SystemCONSULTon 74-92-6580OBASLJWUzhjffRlypzdbdm Clinic ClevelandCT ENTEROGRAPHY W IVCONon 02-65-7324BK ENTEROGRAPHY W IVCONNormalDunlap Memorial HospitalED NOTEon 77-66-7078IN NOTEHNO ID: [id number] Author: RENO LOYOLA RN Service: Emergency Medicine Author Type: Registered Nurse Type: ED Notes Filed: 08/17/2024 10:52 Note Text: Admitting provider at bedside discussing NG tube placement. Pt refusing at this time.NormalPomerene Hospital NOTENormThe Christ Hospital PROV NOTEon 52-46-0851NV PROV NOTENoBlanchard Valley Health System Bluffton HospitalHCG Preg Ur Ql on 16-96-0153SJR ( test) Ql (U)NegativeNormalNegativeDunlap Memorial HospitalComment on above:Order Comment: Specimen Type: URINE SPECIMENOrdering Facility: [facility] Address:[address] [place], [place] [address]Result Comment: This test is intended to aid in the early detection of . Very dilute urinesamples, as indicated by a low specific gravity, may not contain sales representative printing levels of hCG. Thistest detects intact hCG [...] presumptive diagnosis for .Performed By: #### 2106-3 ####[facility] LABCLIA [id number] [address] [place] HISTORY PHYSICALon 90-16-7773RYVBYQQ PHYSICALNoBlanchard Valley Health System [facility] NURSING PROGon 70-76-5939UMCWONY PROGNormalDunlap Memorial HospitalPT panel Coag (PPP)on 62-78-0134VHB Coag (PPP) [Relative time]1.1 {INR}Normal0.9-1.3 [facility] on above:Order Comment: Specimen Type: BLOOD SPECIMENOrdering Facility: [facility] Address:[address] [place], [place] [address]Result Comment: Vitamin K Antagonist (VKA) Therapeutic Range: INR 2 to 3 (Target INR of 2.5)Note: For patients treated with VKA drugs, such as warfarin, the [place] [employer] 2012 Guideline recommends [...] JAC 2017, 70: 252-289 Performed By: #### 07712-7, 67146-4 ####[facility] [id number] [place] [address] [place] PT Coag (PPP) [Time]11.4 sNormal9.7-13.0[facility] on above:Order Comment: Specimen Type: BLOOD SPECIMENOrdering Facility: [facility] Address:[address] [place], [place] [address]Performed By: #### 98913-5, 29494-0 ####[facility]OSPITALIA [id number] [place] [address] [place] OF AMERICATYPE + SCREENon 79-80-2498DVHUGigoyjVqodzpiqbMarietta Memorial Hospital on above:Order Comment: Specimen Type: BLOOD SPECIMENOrdering Facility: [facility] Address:[address] [place], [place] [address]Performed By: #### TSCR ####CC MAIN BLOOD BANKCLIA [id number] [place] [id number] [place] PSYCHIATRIC CENTERRh Nom (Bld)NegativeNormalCMarietta Memorial Hospital on above:Order Comment: Specimen Type: BLOOD SPECIMENOrdering Facility: [facility] Address:[address] [place], [place] [address]Performed By: #### TSCR ####[facility] BLOOD BANKCLIA [id number] [place] [id number] [place] [facility]YCHIATRIC CENTERTYPE AND SCREEN EXPIRATION 08/20/2024 23:59NormalClevelSycamore Medical Center on above:Order Comment: Specimen Type: BLOOD SPECIMENOrdering Facility: [facility] Address:[address] [place], [place] [address]Performed By: #### TSCR ####[facility] BLOOD BANKCLIA [id number] [place] [id number] [facility] HOSPITALaPTT PPPon 74-99-7425mYGR Coag (PPP) [Time]27.2 sNormal 23.0-32.4CMarietta Memorial Hospital on above:Order Comment: Specimen Type: BLOOD SPECIMENOrdering Facility: [facility] Address:[address] [place], [place] [address]Performed By: #### 02509-0, 52882-4 ####[facility] LABCLIA [id number] [place] [id number] [facility]IMESTONE HOSPITALCB W Auto Differential panel (Bld)on 08-16-2024 Basophils (Bld) [#/Vol]0.03 10*3/uLNormal<0.11CMarietta Memorial Hospital on above:Order Comment: Specimen Type: BLOOD SPECIMENOrdering Facility: [facility] Address:[address] [place] [address] Performed By: #### 4537-7, 96088-8 ####[facility] LABCLIA [id number] [facility] [place] [address] [place] Basophils/100 WBC (Bld)0.3 %NormalTriHealth Bethesda North Hospital on above: Order Comment: Specimen Type: BLOOD SPECIMENOrdering Facility: [facility] Address:[address] [place], [place] [address]Performed By: #### 4537- 7, 56149-4 ####[facility] LABCLIA [id number] [place] [address] [place] AMERICADifferential cell count method Nom (Bld)AutoNormalCMarietta Memorial Hospital on above:Order Comment: Specimen Type: BLOOD SPECIMENOrdering Facility: [facility] Address:[address] [place], [place] [address]Performed By: #### 4537- 7, 12816-4 ####[facility] LABIA [id number] [facility] [place] [address] [place] AMERICAEosinophils (Bld) [#/Vol]0.18 10*3/uLNormal<0.46[facility] on above:Order Comment: Specimen Type: BLOOD SPECIMENOrdering Facility: [facility] Address:[address] [place], [place] [address]Performed By: #### 4537- 7, 89140-4 ####[facility] LABIA [id number] [facility] [address] [place] AMERICAEosinophils/100 WBC (Bld)1.5 %NormalTriHealth Bethesda North Hospital on above:Order Comment: Specimen Type: BLOOD SPECIMENOrdering Facility: [facility] Address:[address] [place], [place] [address]Performed By: #### 4537-7, 04794-2 ####[facility] LABIA [id number] [facility] [place] [address] [place] AMERICAErythrocyte distribution width (RBC) [Ratio]14.7 %Mptkeg55.5-15.0[facility] on above: Order Comment: Specimen Type: BLOOD SPECIMENOrdering Facility: [facility] Address:[address] [place], [place] [address], [place] [address]Performed By: #### 4537- 7, 49956-8 ####[facility] LABCLIA [id number] [place] [address] [place] AMERICAHematocrit (Bld) [Volume fraction]34.9 %Low36.0-46.0[facility] on above:Order Comment: Specimen Type: BLOOD SPECIMENOrdering Facility: [facility] Address:[address] [place], [place] [address]Performed By: #### 4537- 7, 25875-6 ####[facility] LABCLIA [id number] [facility] [place] [address] [place] AMERICAHemoglobin (Bld) [Mass/Vol]11.5 g/sIDrlgbw01.5-15.5CMarietta Memorial Hospital on above: Order Comment: Specimen Type: BLOOD SPECIMENOrdering Facility: [facility] Address:[address] [place], [place] [address]Performed By: #### 4537- 7, 92596-2 ####[facility] LABCLIA [id number] [facility] [place] [address] [place] AMERICAImmature granulocytes (Bld) [#/Vol]0.06 10*3/uLNormal<0.10[facility] on above: Order Comment: Specimen Type: BLOOD SPECIMENOrdering Facility: [facility] Address:[address] [place], [place] [address], [place] [address]Performed By: #### 4537- 7, 23887-3 ####[facility] LABCLIA [id number] [facility] [place] [address] [place] AMERICAImmature granulocytes/100 WBC (Bld)0.5 %NormalTriHealth Bethesda North Hospital on above: Order Comment: Specimen Type: BLOOD SPECIMENOrdering Facility: [facility] Address:[address] [place], [place] [address]Performed By: #### 4537- 7, 44838-4 ####[facility] LABCLIA [id number] [facility] [place] [address] [place] AMERICALymphocytes (Bld) [#/Vol]1.24 10*3/uLNormal1.00-4.00[facility] on above: Order Comment: Specimen Type: BLOOD SPECIMENOrdering Facility: [facility] Address:[address] [place], [place] [address]Performed By: #### 4537- 7, 22005-6 ####[facility] LABCLIA [id number] [facility] [place] [place] [address] [place] AMERICALymphocytes/100 WBC (Bld)10.5 %NormalTriHealth Bethesda North Hospital on above:Order Comment: Specimen Type: BLOOD SPECIMENOrdering Facility: [facility] Address:[address] [place], [place] [address]Performed By: #### 4537-7, 03389-1 ####[facility] LABCLIA [id number] [facility]D [address] (RBC) [Entitic mass]28.8 pg Xabuks13.0-34.0[facility] on above:Order Comment: Specimen Type: BLOOD SPECIMENOrdering Facility: [facility] Address:[address] [place], [place] [address]Performed By: #### 4537-7, 44664-9 ####[facility] LABCLIA [id number] [address] (RBC) [Mass/Vol]33.0 g/dL Rizout17.5-36.0[facility] on above:Order Comment: Specimen Type: BLOOD SPECIMENOrdering Facility: [facility] Address:[address] [place], [place] [address]Performed By: #### 4537-7, 59052-8 ####[facility] LABCLIA [id number] [place] [address] [place] AMERICAMCV (RBC) [Entitic vol]87.5 fL Jvvxxb44.0-100.0[facility] on above:Order Comment: Specimen Type: BLOOD SPECIMENOrdering Facility: [facility] Address:[address] [place], [place] [address]Performed By: #### 4537-7, 21884-9 ####[facility] LABCLIA [id number] [place] [address] [place] AMERICAMonocytes (Bld) [#/Vol]0.96 10*3/uLHigh<0.87[facility] on above:Order Comment: Specimen Type: BLOOD SPECIMENOrdering Facility: [facility] Address:[address] [place], [place] [address]Performed By: #### 4537-7, 64268-1 ####[facility] LABCLIA [id number] [place] [address] [place] AMERICAMonocytes/100 WBC (Bld)8.1 % NormalTriHealth Bethes[facility] on above:Order Comment: Specimen Type: BLOOD SPECIMENOrdering Facility: [facility] Address:[address] [place], [place] [address]Performed By: #### 4537-7, 94005-1 ####[facility] LABIA [id number] [place] [address] [place] AMERICANeutrophils (Bld) [#/Vol]9.35 10*3/uLHigh1.45-7.50 [facility] on above:Order Comment: Specimen Type: BLOOD SPECIMENOrdering Facility: [facility] Address:[address] [place], [place] [address]Performed By: #### 4537-7, 98907-4 ####[facility] LABCLIA [id number] [place] [address] [place] AMERICANeutrophils/100 WBC (Bld)79.1 %NormalDunlap Memorial Hospital Comment on above:Order Comment: Specimen Type: BLOOD SPECIMENOrdering Facility: [facility] Address:[address] [place] [address] Performed By: #### 4537-7, 08193-3 ####[facility] LABIA [id number] [place] [address] [place] Nucleated RBC (Bld) [#/Vol]10*3/uLNormal<0.01Dunlap Memorial HospitalComtrinity health [facility] on above:Order Comment: Specimen Type: BLOOD SPECIMENOrdering Facility: [facility] Address:[address] [place] [address] Performed By: #### 4537-7, 70292-4 ####[facility] HOSPITALIA [id number] [place] [address] [place] Nucleated RBC/100 WBC (Bld) [Ratio]0.0 /100 WBCNormalCUniversity Hospitals Health System Comment on above:Order Comment: Specimen Type: BLOOD SPECIMENOrdering Facility: [facility] Address:[address] [place] [address] Performed By: #### 4537-7, 20988-3 ####[facility] LABIA [id number] [place] [address] [place] Platelet mean volume (Bld) [Entitic vol]9.9 fLNormal9.0-12.7CUniversity Hospitals Health SystemComtrinity health [facility] on above:Order Comment: Specimen Type: BLOOD SPECIMENOrdering Facility: [facility] Address:[address] [place], [place] [address]Performed By: #### 4537-7, 22431-7 ####[facility] LABIA [id number] [place] [address] [place] Platelets (Bld) [#/Vol]341 10*3/dBQiaylr388-260ErnsaqrbmTriHealth [facility] on above:Order Comment: Specimen Type: BLOOD SPECIMENOrdering Facility: [facility] Address:[address] [place] [address] Performed By: #### 4537-7, 58328-8 ####[facility] LABCLIA [id number] [place] [address] [place] RBC (Bld) [#/Vol]3.99 10*6/uLNormal3.90-5.20[facility] on above:Order Comment: Specimen Type: BLOOD SPECIMENOrdering Facility: [facility] Address:[address] [place], [place] [address]Performed By: #### 4537-7, 72678-4 ####[facility] LABCLIA [id number] [place] [address] [place] AMERICAWBC (Bld) [#/Vol]11.82 10*3/uLHigh3.70-11.00[facility] on above:Order Comment: Specimen Type: BLOOD SPECIMENOrdering Facility: [facility] Address:[address] [place], [place] [address]Performed By: #### 4537-7, 69342-2 ####[facility] LABCLIA [id number] [place] [address] [place] AMERICACRP SerPl-mCncon 19-03-3870ESV [Mass/Vol]3.8 mg/dLHigh<0.9CMarietta Memorial Hospital on above:Order Comment: Specimen Type: BLOOD SPECIMENOrdering Facility: [facility] Address:[address] [place], [place] [address]Performed By: #### 00143- 8, 3040-3, 40196-4, 1987- ####[facility] LABCLIA [id number] [address] [place] [id number] [place] [address] [place] Comprehensive metabolic 2000 panelon 23-41-6140Vwfygul [Mass/Vol]3.6 g/dLLow 3.9-4.9CMarietta Memorial Hospital on above:Order Comment: Specimen Type: BLOOD SPECIMENOrdering Facility: [facility] Address:[address] [place], [place] [address]Performed By: #### 19561-7, 3039-3, , 1987-11 ####[facility] LABCLIA [id number] [place] [address] [place] AMERICAALP [Catalytic activity/Vol]81 U/WFzvwjq12-932DcxhtmleuTriHealth [facility] on above:Order Comment: Specimen Type: BLOOD SPECIMENOrdering Facility: [facility] Address:[address] [place], [place] [address]Performed By: #### 53197-9, 3039-3, , 1987-11 ####[facility] LABCLIA [id number] [place] [address] [place] AMERICAALT [Catalytic activity/Vol]21 U/LNormal7-38[facility] on above:Order Comment: Specimen Type: BLOOD SPECIMENOrdering Facility: [facility] Address:[address] [place], [place] [address]Performed By: #### 64642- 8, 3039-3, , 1987-11 ####[facility] LABCLIA [id number] [place] [id number] [place] AMERICAAnion gap [Moles/Vol]12 mmol/LNormal8-15[facility] on above: Order Comment: Specimen Type: BLOOD SPECIMENOrdering Facility: [facility] Address:[address] [place], [place] [address]Performed By: #### 87045- 8, 3039-3, , 1987-11 ####[facility] LABCLIA [id number] [place] [address] [place] AMERICAAST [Catalytic activity/Vol]14 U/RPnfibj63-88YshjlxywvTriHealth [facility]hes[facility] on above:Order Comment: Specimen Type: BLOOD SPECIMENOrdering Facility: [facility] Address:[address] [place], [place] [address]Performed By: #### 12810-6, 3039-3, , 1987-11 ####[facility] LABCLIA [id number] [place] [address] [place] Bilirubin [Mass/Vol]0.2 mg/dLNormal0.2-1.3CMarietta Memorial Hospital on above:Order Comment: Specimen Type: BLOOD SPECIMENOrdering Facility: [facility] Address:[address] [place], [place] [address]Performed By: #### 51397-5, 3, , 1987-11 ####[facility] LABIA [id number] [place] [address] [place] Calcium [Mass/Vol]8.7 mg/dLNormal8.5-10.2CMarietta Memorial Hospital on above:Order Comment: Specimen Type: BLOOD SPECIMENOrdering Facility: [facility] Address:[address] [place], [place] [address]Performed By: #### 63991-7, 3, , 1987-11 ####[facility] LABCLIA [id number] [place] [address] [place] Chloride [Moles/Vol]101 mmol/ZSnttxd15-908EvrvtonofTriHealth [facility] on above:Order Comment: Specimen Type: BLOOD SPECIMENOrdering Facility: [facility] Address:[address] [place], [place] [address]Performed By: #### 02947-6, 3039-3, , 1987-11 ####[facility] LABCLIA [id number] [place] [address] [place] CO2 [Moles/Vol]25 mmol/WVxnvyx77-64EsrxpkzddTriHealth [facility] on above: Order Comment: Specimen Type: BLOOD SPECIMENOrdering Facility: [facility] Address:[address] [place], [place] [address]Performed By: #### 91297- 8, 0-3, , 1987-11 ####[facility] LABCLIA [id number] [place] [address] [place] Creatinine [Mass/Vol]0.42 mg/dLLow0.58-0.96[facility] on above:Order Comment: Specimen Type: BLOOD SPECIMENOrdering Facility: [facility] Address:[address] [place], [place] [address]Performed By: #### 16822-2, 3, , 1987-11 ####[facility] LABIA [id number] [place] [address] [place] Creatinine and Glomerular filtration rate.predicted panel (S/P/Bld)130 mL/min/1.73m???Normal>=60[facility] on above:Order Comment: Specimen Type: BLOOD SPECIMENOrdering Facility: [facility] Address:[address] [place], [place] [address]Result Comment: Estimated Glomerular Filtration Rate (eGFR) is [...] not accurately reflect actual GFR.Performed By: #### 38651-9, 3, , 1987-11 ####[facility] LABCLIA [id number] [place] [id number] [place] AMERICAGlucose [Mass/Vol]94 mg/jMRhihll80-63AoxorsuaoTriHealth Bethes[facility] on above:Order Comment: Specimen Type: BLOOD SPECIMENOrdering Facility: [facility] Address:[address] [place], [place] [address]Result Comment: The [place] Diabetes Association (ADA) provides guidance for cutoff [...] Standards of Medical Care in Diabetes 2016, [place] Diabetes Association. Diabetes Care. 2016.39(Suppl 1). Performed By: #### 32315-8, 3039-3, , 1987-11 ####[facility] LABIA [id number] [place] [id number] [place] AMERICAPotassium [Moles/Vol]4.0 mmol/LNormal3.7-5.1CMarietta Memorial Hospital on above:Order Comment: Specimen Type: BLOOD SPECIMENOrdering Facility: [facility] Address:[address] [place], [place] [address]Performed By: #### 40731-7, 3039-3, , 1987-11 ####[facility] LABCLIA [id number] [place] [id number] [place] AMERICAProtein [Mass/Vol]6.8 g/dLNormal6.3-8.0[facility] on above:Order Comment: Specimen Type: BLOOD SPECIMENOrdering Facility: [facility] Address:[address] [place], [place] [address]Performed By: #### 16403-0, 304-3, , 1987-11 ####[facility] LABCLIA [id number] [place] [id number] [place] AMERICASodium [Moles/Vol]138 mmol/VZxxxkr168-158CjgwikpmhTriHealth Bethesda North Hospital on above:Order Comment: Specimen Type: BLOOD SPECIMENOrdering Facility: [facility] Address:[address] [place], [place] [address]Performed By: #### 71237-3, 3039-3, , 1987-11 ####[facility] LABCLIA [id number] [place] [id number] [place] AMERICAUrea nitrogen [Mass/Vol]13 mg/dL Normal7-21[facility] on above:Order Comment: Specimen Type: BLOOD SPECIMENOrdering Facility: [facility] Address:[address] [place], [place] [address]Performed By: #### 31381-7, 3039-3, , 1987-11 ####[facility] LABIA [id number] [place] [address] [place] OF AMERICAED NOTEon 41-80-0238YH NOTEHNO ID: [id number] Author: EDA GUZMAN CT Service: ? Author Type: Clinical Respiratory Therapy Instructor Type: ED Notes Filed: 08/16/2024 22:50 Note Text: Pt declined updating vsNoWhite Hospital Triage Noteon 55-40-9372NK Triage NoteCleveland Clinic Hillcrest HospitalESR Westergren method (Bld) [Velocity]on 67-23-3254NJC (Bld) [Velocity]37 mm/hHigh0-20[facility] on above:Order Comment: Specimen Type: BLOOD SPECIMENOrdering Facility: [facility] Address:[address] [place], [place] [address]Performed By: #### 4537-7, 04174-0 ####[facility] LABCLIA [id number] [place] [id number] [place] AMERICALipase SerPl-cCncon 10-93-2022Hmvufr [Catalytic activity/Vol]30 U/LNormal 16-61[facility] on above:Order Comment: Specimen Type: BLOOD SPECIMENOrdering Facility: [facility] Address:[address] [place], [place] [address]Performed By: #### 38143-2, 3039-3, , 1987-11 ####[facility] LABCLIA [id number] [place] [address] [place] AMERICAMagnesium SerPl-mCncon 08-16-2024 Magnesium [Mass/Vol]2.0 mg/dLNormal1.7-2.3CMarietta Memorial Hospital on above:Order Comment: Specimen Type: BLOOD SPECIMENOrdering Facility: [facility] Address:[address] [place], [place] [address]Performed By: #### 17995-5, 3, , 1987-11 ####[facility] LABCLIA [id number] [address] [place] Alanine aminotransferase [Enzymatic activity/volume] in Serum or PlasmaOrdered By: Maru Maguire on 85-00-6195TIK [Catalytic activity/Vol]Alanine aminotransferase [Enzymatic activity/volume] in Serum or Plasma7-[facility] - WestAlbumin [Mass/volume] in Serum or Plasma by Bromocresol green (BCG) dye binding methoOrdered By: Maru Maguire on [id number] BCG dye [Mass/Vol] Albumin [Mass/volume] in Serum or Plasma by Bromocresol green (BCG) dye binding metho3.5-5.7FWyandot Memorial HospitalAlkaline phosphatase [Enzymatic activity/volume] in Serum or PlasmaOrdered By: Maru Maguire on [id number] [Catalytic activity/Vol]Alkaline phosphatase [Enzymatic activity/volume] in Serum or Xjwqkq55-088JylkrtgwxLake County Memorial Hospital - WestAspartate aminotransferase [Enzymatic activity/volume] in Serum or PlasmaOrdered By: Maru Maguire on [id number] [Catalytic activity/Vol]Aspartate aminotransferase [Enzymatic activity/volume] in Serum or Hkbvgd49-06FowwucuidLake County Memorial Hospital - West Bilirubin.total [Mass/volume] in Serum or PlasmaOrdered By: Maru Maguire on 32-26-0520Pwieghwbr [Mass/Vol]Bilirubin.total [Mass/volume] in Serum or Plasma Low0.3-1.0[facility] - WestCalcium [Mass/volume] in Serum or PlasmaOrdered By: Maru Maguire on 21-48-0019Dseyfks [Mass/Vol]Calcium [Mass/volume] in Serum or Plasma8.6-10.3FWyandot Memorial HospitalCarbon dioxide, total [Moles/volume] in Serum or PlasmaOrdered By: Maru Maguire on 22-63-1863YN6 [Moles/Vol]Carbon dioxide, total [Moles/volume] in Serum or Plasma 21.0-31.0[facility] - WestChloride [Moles/volume] in Serum or PlasmaOrdered By: Maru Maguire on 04-49-3554Ouetmxmi [Moles/Vol]Chloride [Moles/volume] in Serum or Gmfpqs76-149NfeubpmhiLake County Memorial Hospital - West Comprehensive Metabolic Panelon 26-72-0258Wgxjhor [Mass/Vol]3.6 g/dLNormal 3.5-5.7The [facility] Physician GroupComment on above:Performed By: #### CMP, CBCNO, MG, TRIG #### [facility] [address] [place] [address] USAAlbumin/Globulin [Mass ratio]1.2 {ratio}NormalThe Good Hope Hospital Physician GroupComment on above:Performed By: #### CMP, CBCNO, MG, TRIG #### [facility] [address] [place] [address] USAALP [Catalytic activity/Vol]72 U/DPglgwo78-570Quj [facility] Physician GroupComment on above:Performed By: #### CMP, CBCNO, MG, TRIG #### [facility] [address] [place] [id number] USAALT [Catalytic activity/Vol]20 U/LNormal7-52The [facility] Hospital Physician GroupComment on above:Performed By: #### CMP, CBCNO, MG, TRIG #### [facility] [address] [place] [address] USAAnion gap [Moles/Vol]11.0 mmol/LNormal6.0-15.0The [facility] Hospital Physician GroupComment on above:Performed By: #### CMP, CBCNO, MG, TRIG #### [facility] [address] [place] [address] USAAST [Catalytic activity/Vol]13 U/ZVudkvy12-24Hpb [facility] Physician GroupComment on above:Performed By: #### CMP, CBCNO, MG, TRIG #### [facility] [address] [place] [address] USABilirubin [Mass/Vol]0.1 mg/dLLow0.3-1.0The [facility] Physician GroupComment on above:Performed By: #### CMP, CBCNO, MG, TRIG #### [place] [address] USACalcium [Mass/Vol]8.8 mg/dLNormal8.6-10.3The [facility] Hospital Physician GroupComment on above:Performed By: #### CMP, CBCNO, MG, TRIG #### [place] [address] USAChloride [Moles/Vol]105 mmol/TSxtpvj13-824Wzd [facility] Physician GroupComment on above:Performed By: #### CMP, CBCNO, MG, TRIG #### [place] [address] USACO2 [Moles/Vol]26.3 mmol/WVuoibh75.0-31.0The [facility] Hospital Physician GroupComment on above:Performed By: #### CMP, CBCNO, MG, TRIG #### [facility] [address] [place] [address] USACreatinine [Mass/Vol]0.45 mg/dLLow0.60-1.20The [facility] Hospital Physician GroupComment on above:Performed By: #### CMP, CBCNO, MG, TRIG #### [place] [address] USAGFR/1.73 sq M.predicted MDRD (S/P/Bld) [Vol rate/Area] mL/min/{1.73_m2}NormalThe Good Hope Hospital Physician GroupComment on above:Performed By: #### CMP, CBCNO, MG, TRIG #### [facility] [address] [place] [address] USAGlobulin (S) [Mass/Vol]3.1 g/dLNormalThe [facility] Hospital Physician GroupComment on above:Performed By: #### CMP, CBCNO, MG, TRIG #### [facility] [address] [place] [address] USAGlucose [Mass/Vol]85 mg/gIUicfdt91-586Vea [facility] Physician GroupComment on above:Result Comment: Random Glucose Reference Range is dependent on time and content of last meal. Glucose of more than 200 mg/dL in a nonstressed, ambulatory subject supports the diagnosis of Diabetes Mellitus. ADA recommended reference rangePerformed By: #### CMP, CBCNO, MG, TRIG #### [facility] [address] [place] [address] USAPotassium [Moles/Vol]4.3 mmol/LNormal3.5-5.1The [facility] Hospital Physician GroupComment on above:Performed By: #### CMP, CBCNO, MG, TRIG #### [facility] [address] [place] [address] USAProtein [Mass/Vol]6.7 g/dLNormal6.4-8.9The [facility] Hospital Physician GroupComment on above:Performed By: #### CMP, CBCNO, MG, TRIG #### [facility] [address] [place] [address] USASodium [Moles/Vol]138 mmol/DGpdljb226-946Zzc [facility] Physician GroupComment on above:Performed By: #### CMP, CBCNO, MG, TRIG #### [facility] [address] [place] [address] USAUrea nitrogen [Mass/Vol]23 mg/dLNormal7-25The [facility] Hospital Physician GroupComment on above:Performed By: #### CMP, CBCNO, MG, TRIG #### [facility] [address] [place] [address] USACreatinine [Mass/volume] in Serum or PlasmaOrdered By: Maru Maguire on 34-68-3782Cnwwcgjowf [Mass/Vol]Creatinine [Mass/volume] in Serum or PlasmaLow0.60-1.20[facility] - WestErythrocyte distribution width Auto (RBC) [Ratio]Ordered By: Maru Maguire on 78-51-5100Xkxndfsyami distribution width (RBC) [Ratio]Erythrocyte distribution width [Ratio] by Automated stdzqQcuy26.9-15.3FWyandot Memorial HospitalGlobulin Calc (S) [Mass/Vol]Ordered By: Maru Maguire on 54-47-3411Qywvfnav (S) [Mass/Vol]Serum globulin measurement by calculation (mass/volume)[facility] - WestGlucose [Mass/volume] in Serum or PlasmaOrdered By: Maru Maguire on 97-87-1851Ifhoclz [Mass/Vol]Glucose [Mass/volume] in Serum or Kbudsg01-860 [facility] - WestComment on above:ADA recommended reference rangeRandom Glucose Reference Range is dependent on time and content of last meal. Glucose of more than 200 mg/dL in a nonstressed, ambulatory subject supports the diagnosisof Diabetes Mellitus.Hematocrit Auto (Bld) [Volume fraction]Ordered By: Maru Maguire on 51-64-7640Zytukfzdda (Bld) [Volume fraction] Hematocrit [Volume Fraction] of Blood by Automated jlthfQlm98.0-46.4FWyandot Memorial HospitalHemoglobin [Mass/volume] in BloodOrdered By: Maru Maguire on 01-89-6206Vkrpigfnbj (Bld) [Mass/Vol]Hemoglobin [Mass/volume] in BloodLow 11.8-15.4FWyandot Memorial HospitalHemogram CBC Without Diffon 08-14-2024 Erythrocyte distribution width (RBC) [Ratio]15.8 %High11.9-15.3The [facility] Hospital Physician GroupComment on above:Performed By: #### CMP, CBCNO, MG, TRIG #### [facility] [address] [place] [address] USAHematocrit (Bld) [Volume fraction]31.9 %Low34.0-46.4The [facility] Physician GroupComment on above:Performed By: #### CMP, CBCNO, MG, TRIG #### [place] [address] USAHemoglobin (Bld) [Mass/Vol]10.6 g/dLLow11.8-15.4The [facility] Hospital Physician GroupComment on above:Performed By: #### CMP, CBCNO, MG, TRIG #### [place] [address] USAMCH (RBC) [Entitic mass]28.6 uwKfmuvc65.7-34.3The [facility] Hospital Physician GroupComment on above:Performed By: #### CMP, CBCNO, MG, TRIG #### [place] [address] USAMCV (RBC) [Entitic vol]86.6 vTGroxnx47-552Fow [facility] Physician GroupComment on above:Performed By: #### CMP, CBCNO, MG, TRIG #### [place] [address] USAMean Corpuscular HGB Conc33.1 g/hRMoecmx34.0-35.0The [facility] Hospital Physician GroupComment on above:Performed By: #### CMP, CBCNO, MG, TRIG #### [place] [address] USAPlatelet mean volume (Bld) [Entitic vol]8.7 fLNormal 6.3-10.7The [facility] Hospital Physician GroupComment on above:Result Comment: PERFORMED BY: [place] [address] PATHOLOGIST CERTIFIED ADAPTIVE PHYSICAL EDUCATOR GENOVEVA RENDON M.D.Performed By: #### CMP, CBCNO, MG, TRIG #### [place] [address] USAPlatelets (Bld) [#/Vol]316 10*3/wYWnelza104-281Gfh [facility] Physician GroupComment on above:Performed By: #### CMP, CBCNO, MG, TRIG #### [place] [address] USARBC (Bld) [#/Vol]3.69 10*6/uLNormal3.60-5.00The [facility] Hospital Physician GroupComment on above:Performed By: #### CMP, CBCNO, MG, TRIG #### [facility] [address] [place] [address] USAWBC (Bld) [#/Vol]8.3 10*3/uLNormal3.8-11.6The [facility] Hospital Physician GroupComment on above:Performed By: #### CMP, CBCNO, MG, TRIG #### [facility] [address] [place] [id number] USALeukocytes [#/volume] corrected for nucleated erythrocytes in Blood by Automated counOrdered By: Maru Maguire on 96-93-2021SVQ corrected for nucl RBC Auto (Bld) [#/Vol]Leukocytes [#/volume] corrected for nucleated erythrocytes in Blood by Automated coun3.8-11.6FWyandot Memorial Hospital MCH Auto (RBC) [Entitic mass]Ordered By: Maru Maguire on 34-94-5551XCY (RBC) [Entitic mass]MCH [Entitic mass] by Automated count24.7-34.3FWyandot Memorial HospitalMCHC Auto (RBC) [Mass/Vol]Ordered By: Maru Maguire on 81-06-0779NSLF (RBC) [Mass/Vol]MCHC [Mass/volume] by Automated count32.0-35.0[facility] - WestMCV Auto (RBC) [Entitic vol]Ordered By: Maru Maguire on 86-43-8020DRB (RBC) [Entitic vol]MCV [Entitic volume] by Automated msdox90-156 [facility] - WestMagnesiumon 82-71-0228Spznhyupk [Mass/Vol]2.0 mg/dLNormal1.9-2.7The [facility] Physician GroupComment on above:Performed By: #### CMP, CBCNO, MG, TRIG #### [facility] [address] [place] [id number] USAMagnesium [Mass/volume] in Serum or PlasmaOrdered By: Maru Maguire on 52-01-5770Xbbletobm [Mass/Vol]Magnesium [Mass/volume] in Serum or Plasma1.9-2.7FWyandot Memorial HospitalNo Panel InformationOrdered By: Maru Maguire on 87-18-7196Xbhwxelfn GFR (CKD-EPI)> 60.0 mL/MinLake County Memorial Hospital - WestPharmacy Creatinine Clearance (ChemN/AFWyandot Memorial HospitalPlatelet mean volume Auto (Bld) [Entitic vol]Ordered By: Maru Maguire on 40-92-3206Xhfrbhsa mean volume (Bld) [Entitic vol]Platelet mean volume [Entitic volume] in Blood by Automated count6.3-10.7FWyandot Memorial Hospital Platelets Auto (Bld) [#/Vol]Ordered By: Maru Maguire on 04-28-4476Rwzpmlxpa (Bld) [#/Vol]Platelets [#/volume] in Blood by Automated otuoj411-683SunbczrmnLake County Memorial Hospital - WestPotassium [Moles/volume] in Serum or PlasmaOrdered By: Maru Maguire on 22-86-7422Hgiihzixy [Moles/Vol]Potassium [Moles/volume] in Serum or Plasma 3.5-5.1FWyandot Memorial HospitalProtein [Mass/volume] in Serum or Plasma Ordered By: Maru Maguire on 60-37-0602Bbkawhy [Mass/Vol]Protein [Mass/volume] in Serum or Plasma6.4-8.9[facility] Hospital - WestRBC Auto (Bld) [#/Vol] Ordered By: Maru Maguire on 57-60-5677TEU (Bld) [#/Vol]Erythrocytes [#/volume] in Blood by Automated count3.60-5.00[facility]in Memorial Hospitalerum or plasma albumin/globulin mass ratioOrdered By: Maru Maguire on 08-14-2024 Albumin/Globulin [Mass ratio]Serum or plasma albumin/globulin mass ratio [facility] Hospitalerum or plasma anion gap determinationOrdered By: Maru Maguire on 46-06-7248Zkobv gap [Moles/Vol]Serum or plasma anion gap determination6.0-15.0[facility] Memorial Hospitalodium [Moles/volume] in Serum or PlasmaOrdered By: Maru Maguire on 34-87-6557Dfbjkc [Moles/Vol]Sodium [Moles/volume] in Serum or Qfrkye754-461ScurxuoeaLake County Memorial Hospital - West Triglyceride [Mass/volume] in Serum or PlasmaOrdered By: Maru Maguire on 16-81-3806Giikcbdrrbcm [Mass/Vol]Triglyceride [Mass/volume] in Serum or Plasma 35-149[facility] Hospital - WestComment on above:TRIG ATP III CLASSIFICATIONTRIG less than 150 mg/dL NormalTRIG 150-199 mg/dL Borderline highTRIG 200-500 mg/dL High TRIG greater than 500 mg/dL Very highStandard traceable to the Center for Disease Conrtrol and Prevention (CDC) test method. Triglycerideson 72-69-9328Ihqdkzghvpzf [Mass/Vol]97 mg/fMTceisi09-021Oku [facility] Physician GroupComment on above:Result Comment: TRIG ATP III CLASSIFICATION TRIG less than 150 mg/dL Normal TRIG 150-199 mg/dL Borderline high TRIG 200-500 mg/dL High TRIG greater than 500 mg/dL Very high Standard traceable to the Center for Disease Conrtrol and Prevention (CDC) test method. PERFORMED BY: [place] [address] PATHOLOGIST CERTIFIED ADAPTIVE PHYSICAL EDUCATOR GENOVEVA RENDON M.D.Performed By: #### CMP, CBCNO, MG, TRIG #### [place] [address] USAUrea nitrogen [Mass/volume] in Serum or PlasmaOrdered By: Maru Maguire on 06-25-5694Hwrz nitrogen [Mass/Vol]Urea nitrogen [Mass/volume] in Serum or Plasma7-25[facility] - WestCASE MANAGEMon 08-08-2024 CASE MANAGEMNormalUc [facility] ClevelandCNDSon 17-52-7062GDJDIjucxoOilqjdaat Clinic ClevelandMagnesium SerPl-mCncon 41-61-6914Vziceskgv [Mass/Vol]2.0 mg/dL Normal1.7-2.3CUniversity Hospitals Health SystemComment on above:Order Comment: Specimen Type: BLOOD SPECIMENOrdering Facility: [facility] Address:[address] [place], [place] [address]Performed By: #### 65219-1, 89604-0, 8 ####[facility] LABCLIA [id number] [address] [place] STATES OF AMERICARenal function 2000 panelon 85-02-8994Tyaniqw [Mass/Vol]3.4 g/dLLow3.9-4.9CUniversity Hospitals Health SystemComment on above:Order Comment: Specimen Type: BLOOD SPECIMENOrdering Facility: [facility] Address:[address] [place] [address] Performed By: #### 47965-4, 96928-9, 8 ####[facility] LABCLIA [id number], [place] [address] [place] AMERICAAnion gap [Moles/Vol]10 mmol/LNormal8-15Dunlap Memorial HospitalComment on above:Order Comment: Specimen Type: BLOOD SPECIMENOrdering Facility: [facility] Address:[address] [place] [address] Performed By: #### 07738-2, 92497-6, 8 ####[facility] LABIA [id number] [address] [place] OF AMERICACalcium [Mass/Vol]8.9 mg/dLNormal8.5-10.2CUniversity Hospitals Health System Comment on above:Order Comment: Specimen Type: BLOOD SPECIMENOrdering Facility: [facility] Address:[address] [place] [address] Performed By: #### 53706-2, 66063-3, 8 ####[facility] LABCLIA [id number] [address] [place] OF AMERICAChloride [Moles/Vol]104 mmol/LYnekln47-178EqhtkzabnDunlap Memorial Hospital Comment on above:Order Comment: Specimen Type: BLOOD SPECIMENOrdering Facility: [facility] Address:[address] [place] [address] Performed By: #### 69607-0, 25244-5, 8 ####[facility] LABCLIA [id number], [place] [address] [place] AMERICACO2 [Moles/Vol]25 mmol/QWehmgp97-39WbrleukjnTriHealth [facility] on above:Order Comment: Specimen Type: BLOOD SPECIMENOrdering Facility: [facility] Address:[address] [place], [place] [address]Performed By: #### 85557-7, 07044-6, 8 ####[facility] [id number], [place] [address] [place] Creatinine [Mass/Vol]0.48 mg/dLLow0.58-0.96[facility] on above:Order Comment: Specimen Type: BLOOD SPECIMENOrdering Facility: [facility] Address:[address] [place], [place] [address]Performed By: #### 08489-4, 61494-8, 2571-02 ####[facility] [id number] [address] [place] Creatinine and Glomerular filtration rate.predicted panel (S/P/Bld)126 mL/min/1.73m???Normal>=60[facility] on above:Order Comment: Specimen Type: BLOOD SPECIMENOrdering Facility: [facility] Address:[address] [place], [place] [address]Result Comment: Estimated Glomerular Filtration Rate (eGFR) is [...] not accurately reflect actual GFR.Performed By: #### 80976-1, 72514-2, 2570-8 ####[facility] [id number] VIL[place] [id number] [place] OF AMERICAGlucose [Mass/Vol]104 mg/dLHigh 74-99[facility] on above:Order Comment: Specimen Type: BLOOD SPECIMENOrdering Facility: [facility] Address:[address] [place], [place] [address]Result Comment: The [place] Diabetes Association (ADA) provides guidance for cutoff [...] Standards of Medical Care in Diabetes 2016, [place] Diabetes Association. Diabetes Care. 2016.39(Suppl 1).Performed By: #### 00565- 9, 74860-8, 2570-8 ####[facility] LABIA [id number][place] [address] [place] AMERICAPhosphate [Mass/Vol] 4.0 mg/dLNormal2.7-4.8CMarietta Memorial Hospital on above:Order Comment: Specimen Type: BLOOD SPECIMENOrdering Facility: [facility] Address:[address] [place], [place] [address]Performed By: #### 28406-8, 12289-1, 8 ####[facility] LABIA [id number] VILLE [address] [place] AMERICAPotassium [Moles/Vol]4.0 mmol/L Normal3.7-5.1CMarietta Memorial Hospital on above:Order Comment: Specimen Type: BLOOD SPECIMENOrdering Facility: [facility] Address:[address] [place], [place] [address]Performed By: #### 72246-8, 29922-8, 257-8 ####[facility] LABIA [id number] VILLE [address] [place] AMERICASodium [Moles/Vol]139 mmol/L Ujmhil497-993DugsblqelTriHealth Bethesda North Hospital on above:Order Comment: Specimen Type: BLOOD SPECIMENOrdering Facility: [facility] Address:[address] [place], [place] [address]Performed By: #### 55994-4, 33137-7, 2571-02 ####[facility] LABCLIA [id number] [address] [place] AMERICAUrea nitrogen [Mass/Vol]16 mg/dL Normal7-21[facility] on above:Order Comment: Specimen Type: BLOOD SPECIMENOrdering Facility: [facility] Address:[address] [place], [place] [address]Performed By: #### 62148-5, 37829-6, 2571-02 ####[facility] LABCLIA [id number] [place] [address] [place] AMERICATrigl SerPl-mCncon 08-08-2024 Triglyceride [Mass/Vol]125 mg/dLNormal<150[facility] on above:Order Comment: Specimen Type: BLOOD SPECIMENOrdering Facility: [facility] Address:[address] [place], [place] [address]Result Comment: <150 mg/dL, Normal 150-199 mg/dL, Borderline high 200-499 mg/dL, High>499 mg/dL, Very highReference:1. National Cholesterol Education Program ATP III Guideline At-A-Glance QuickDesk Reference: National Heart, Lung, and Blood [place]. National Institutes of Health. 2001: NIHPublication No. 01-3305.Performed By: #### 59428-9, 66621-2, 2571-02 ####[facility] LABCLIA [id number] [place] [address] [place] Triglyceride [Mass/Vol]on 35-38-0127KLUBDOD TIME6 hrsNormalCMarietta Memorial Hospital on above:Order Comment: Specimen Type: BLOOD SPECIMENOrdering Facility: [facility] Address:[address] [place] [address] [place], [place] [address]Vlbbfjsya By: #### 67149-9, 10314-1, 2571-8 ####[facility] LABCLIA [id number] [address] [address] [place] OF AMERICAXR ABDOMEN 1V SUPINEon 58-99-5602LX ABDOMEN 1V SUPINENormal [facility] Memorial HospitalBasi metabolic 2000 panelon 30-22-7680Ohiss gap [Moles/Vol]11 mmol/LNormal8-15[facility] on above:Order Comment: Specimen Type: BLOOD SPECIMENOrdering Facility: [facility] Address:[address] [place] [address] [place] [id number] By: #### 88973- 2, 1987-11, , ####[facility] LABCLIA [id number] [place] [address] [place] Calcium [Mass/Vol]8.5 mg/dLNormal8.5-10.2CMarietta Memorial Hospital on above:Order Comment: Specimen Type: BLOOD SPECIMENOrdering Facility: [facility] Address:[address] [place], [place] [address]Performed By: #### 45067-2, 1987-11, , ####[facility] LABCLIA [id number] [place] [id number] [place] Chloride [Moles/Vol]108 mmol/RMohl67-473XlbiiznblTriHealth Bethesda North Hospital on above:Order Comment: Specimen Type: BLOOD SPECIMENOrdering Facility: [facility] Address:[address] [place] [address]Liiuzivvh By: #### 65425-9, 1987-11, , ####[facility] LABCLIA [id number] [address] [address] [place] CO2 [Moles/Vol]21 mmol/WItm81-64PjmamrpjxTriHealth [facility]hesda [facility] Hospital on above:Order Comment: Specimen Type: BLOOD SPECIMENOrdering Facility: [facility] Address:[address] [place], [place] [address]Performed By: #### 80542- 2, 1987-11, , ####[facility] LABCLIA [id number] [place] [address] [place] Creatinine [Mass/Vol]0.51 mg/dLLow0.58-0.96[facility] on above:Order Comment: Specimen Type: BLOOD SPECIMENOrdering Facility: [facility] Address:[address] [place], [place] [address]Performed By: #### 55316-4, 1987-11, , ####[facility] LABCLIA [id number] [place] [address] [place] Creatinine and Glomerular filtration rate.predicted panel (S/P/Bld)124 mL/min/1.73m???Normal>=60[facility] on above:Order Comment: Specimen Type: BLOOD SPECIMENOrdering Facility: [facility] Address:[address] [place], [place] [address]Result Comment: Estimated Glomerular Filtration Rate (eGFR) is [...] not accurately reflect actual GFR.Performed By: #### 19345-0, 1987-11, , ####[facility] LABCLIA [id number] [place] [address] [place] AMERICAGlucose [Mass/Vol]92 mg/nKVvoibn12-48SalvwaojdTriHealth Bethes[facility] Hospital on above:Order Comment: Specimen Type: BLOOD SPECIMENOrdering Facility: [facility] Address:[address] [place], [place] [address]Result Comment: The [place] Diabetes Association (ADA) provides guidance for cutoff [...] Standards of Medical Care in Diabetes 2016, [place] Diabetes Association. Diabetes Care. 2016.39(Suppl 1). Performed By: #### 07510-6, 1987-11, , ####[facility] LABCLIA [id number] [place] [address] [place] AMERICAPotassium [Moles/Vol]3.8 mmol/LNormal3.7-5.1CMarietta Memorial Hospital on above:Order Comment: Specimen Type: BLOOD SPECIMENOrdering Facility: [facility] Address:[address] [place], [place] [address]Performed By: #### 07080-0, 1987-11, , ####[facility] LABCLIA [id number] [place] [address] [place] AMERICASodium [Moles/Vol]140 mmol/IXbnife682-286HmzubciqhTriHealth Bethesda North Hospital on above:Order Comment: Specimen Type: BLOOD SPECIMENOrdering Facility: [facility] Address:[address] [place], [place] [address]Performed By: #### 29695-5, 1987-11, , ####[facility] LABCLIA [id number] [place] [id number] [place] AMERICAUrea nitrogen [Mass/Vol]12 mg/dL Normal7-21[facility] ClevelandComment on above:Order Comment: Specimen Type: BLOOD SPECIMENOrdering Facility: [facility] Address:[address] [place], [place] [address]Performed By: #### 39420-0, 1987-5, 74421-7, 99064-5 ####[facility] LABCLIA [id number] [place] [address] [place] AMERICACASE MANAGEMon 98-41-3929VHGL MANAGEMNormalDunlap Memorial HospitalCASE MANAGEMNormal [facility] HospitalCBC panel Auto (Bld)on 38-41-1893Snaubxnrevq distribution width (RBC) [Ratio]15.7 %High11.5-15.0[facility] Comment on above:Order Comment: Specimen Type: BLOOD SPECIMENOrdering Facility: [facility] Address:[address] [place] [address] Performed By: #### 16183-0 ####[facility] LABCLIA [id number] [place] [address] [place] Hematocrit (Bld) [Volume fraction]30.0 %Low36.0-46.0[facility] Comment on above:Order Comment: Specimen Type: BLOOD SPECIMENOrdering Facility: [facility] Address:[address] [place] [address] Performed By: #### 51494-6 ####[facility] LABCLIA [id number] [place] [address] [place] Hemoglobin (Bld) [Mass/Vol]9.8 g/dLLow11.5-15.5CUniversity Hospitals Health SystemComment on above:Order Comment: Specimen Type: BLOOD SPECIMENOrdering Facility: [facility] Address:[address] [place] [address] Performed By: #### 24713-6 ####[facility] LABCLIA [id number] [place] [address] [place] MCH (RBC) [Entitic mass]29.0 cfEfycla27.0-34.0[facility] on above:Order Comment: Specimen Type: BLOOD SPECIMENOrdering Facility: [facility] Address:[address] [place] [address] Performed By: #### 35406-8 ####[facility] LABIA [id number] [place] [address] [place] [facility] (RBC) [Mass/Vol]32.7 g/bZKgyfwz58.5-36.0[facility] on above:Order Comment: Specimen Type: BLOOD SPECIMENOrdering Facility: [facility] [facility] Address:[address] [place] [address] Performed By: #### 66498-9 ####[facility]IA [id number] [place] [address] [place] MCV (RBC) [Entitic vol]88.8 dBWeudcl00.0-100.0[facility] on above:Order Comment: Specimen Type: BLOOD SPECIMENOrdering Facility: [facility] Address:[address] [place] [address] Performed By: #### 72715-4 ####[facility] [id number] [place] [address] [place] Nucleated RBC (Bld) [#/Vol]10*3/uLNormal<0.01[facility] on above:Order Comment: Specimen Type: BLOOD SPECIMENOrdering Facility: [facility] Address:[address] [place] [address] Performed By: #### 41678-3 ####[facility] [id number] [place] [address] [place] Platelet mean volume (Bld) [Entitic vol]11.0 fLNormal9.0-12.7CMarietta Memorial Hospital on above:Order Comment: Specimen Type: BLOOD SPECIMENOrdering Facility: [facility] Address:[address] [place], [place] [address]Performed By: #### 45491-1 ####[facility] LABCLIA [id number] [place] [address] [place] Platelets (Bld) [#/Vol]205 10*3/gUZeraot083-271OtlmsamjiTriHealth [facility] on above:Order Comment: Specimen Type: BLOOD SPECIMENOrdering Facility: [facility] Address:[address] [place] [address] Performed By: #### 89700-1 ####[facility] [id number] [place] [address] [place] RBC (Bld) [#/Vol]3.38 10*6/uLLow3.90-5.20[facility] on above:Order Comment: Specimen Type: BLOOD SPECIMENOrdering Facility: [facility] Address:[address] [place], [place] [address]Performed By: #### 84320-9 ####[facility] [id number] [place] [address] [place] AMERICAWBC (Bld) [#/Vol]8.14 10*3/uLNormal3.70-11.00[facility] on above:Order Comment: Specimen Type: BLOOD SPECIMENOrdering Facility: [facility] Address:[address] [place], [place] [address]Performed By: #### 29336-0 ####[facility] [id number] [place] [address] [place] AMERICACONSULT PROGon 04-18-0379XCXQAOC PROGNormalDunlap Memorial HospitalCRP SerPl-mCncon 35-07-3834SWD [Mass/Vol]1.3 mg/dLHigh<0.9CMari[facility] on above:Order Comment: Specimen Type: BLOOD SPECIMENOrdering Facility: [facility] Address:[address] [place], [place] [address]Performed By: #### 61662-8, 1987-11, , ####[facility] LABCLIA [id number] [address] [address] [place] AMERICAHepatic function 2000 panelon 17-22-4859Udywmai [Mass/Vol]3.1 g/dLLow3.9-4.9CUniversity Hospitals Health System Comment on above:Order Comment: Specimen Type: BLOOD SPECIMENOrdering Facility: [facility] Address:[address] [place] [address] Performed By: #### 30453-0, 1987-11, , ####[facility] [id number] [place] [address] [place] AMERICAALP [Catalytic activity/Vol]70 U/ZXyecad61-202BoyjnylhdDunlap Memorial HospitalComment on above:Order Comment: Specimen Type: BLOOD SPECIMENOrdering Facility: [facility] Address:[address] [place], [place] [address]Performed By: #### 73960-1, 1987-11, , ####[facility] [id number] [place] [address] [place] AMERICAALT [Catalytic activity/Vol]31 U/LNormal7-38Dunlap Memorial HospitalComment on above:Order Comment: Specimen Type: BLOOD SPECIMENOrdering Facility: [facility] Address:[address] [place], [place] [address]Performed By: #### 18850-2, 1987-11, , ####[facility] [id number] [place] [id number] [place] AMERICAAST [Catalytic activity/Vol]30 U/LQiwten35-31JodmjnejqDunlap Memorial HospitalComtrinity health [facility] on above:Order Comment: Specimen Type: BLOOD SPECIMENOrdering Facility: [facility] Address:[address] [place], [place] [address]Performed By: #### 73602-1, 1987-11, 40989-9, ####[facility] LABCLIA [id number] [address] [address] [place] AMERICABilirubin [Mass/Vol] mg/dLLow0.2-1.3CMari[facility] on above:Order Comment: Specimen Type: BLOOD SPECIMENOrdering Facility: [facility] Address:[address] [place] [address]Ivlvdowvb By: #### 05533-0, 1987-11, 39246-5, ####[facility] [id number] [address] [address] [place] AMERICABilirubin.conjugated [Mass/Vol]mg/dLNormal<0.3CMarietta Memorial Hospital on above:Order Comment: Specimen Type: BLOOD SPECIMENOrdering Facility: [facility] Address:[address] [place] [address]Xkjruqxmg By: #### 10352- 2, 1987-11, , ####[facility] [id number] [address] [address] [place] Protein [Mass/Vol]5.9 g/dLLow6.3-8.0[facility] on above: Order Comment: Specimen Type: BLOOD SPECIMENOrdering Facility: [facility] Address:[address] [place] [address]Wywqmyivt By: #### 28013- 2, 1987-11, , ####[facility] [id number] [address] [address] [place] Magnesium SerPl-mCncon 13-48-4653Ekgpjljdw [Mass/Vol]1.9 mg/dLNormal1.7-2.3 [facility] on above:Order Comment: Specimen Type: BLOOD SPECIMENOrdering Facility: [facility] Address:[address] [place], [place] [address]Performed By: #### 16202-4, 1987-5, 89611-6, 85664-3 ####[facility] LABCLIA [id number] [place] [address] [place] AMERICAPT EDon 24-67-9277ZB EDNormal Dunlap Memorial HospitalPhosphate SerPl-mCncon 54-31-6174Bmdkifrpu [Mass/Vol] 3.3 mg/dLNormal2.7-4.8CM[facility] on above:Order Comment: Specimen Type: BLOOD SPECIMENOrdering Facility: [facility] Address:[address] [place], [place] [address]Performed By: #### 2777-1 ####[facility] LABCLIA [id number] [place] [address] [place] AMERICABacteria Bld Culton 08-06-2024 Bacteria identified Cx Nom (Bld)CULTURE, BLOOD: No growth 5 daysNoUniversity [facility]als [facility] on above:Performed By: #### 600-7 ####[facility] LABCLIA [id number] [place] [address] [place] AMERICABacteria identified Cx Nom (Bld)CULTURE, BLOOD: No growth 5 daysNoUniversity Hospitals [facility] on above:Performed By: #### 600-7 ####[facility] LABCLIA [id number] [place] [address] [place] AMERICACBC panel Auto (Bld)on 63-14-7230Dptczwvudhn distribution width (RBC) [Ratio]15.3 %High11.5-15.0 [facility] on above:Order Comment: Specimen Type: BLOOD SPECIMENOrdering Facility: [facility] Address:[address] [place], [place] [address]Performed By: #### 05813-6 ####[facility] LABCLIA [id number] [place] [address] [place] AMERICAHematocrit (Bld) [Volume fraction]30.2 %Low36.0-46.0[facility] on above:Order Comment: Specimen Type: BLOOD SPECIMENOrdering Facility: [facility] Address:[address] [place], [place] [address]Performed By: #### 62662-5 ####[facility] [id number] [place] [address] [place] Hemoglobin (Bld) [Mass/Vol]9.6 g/dLLow11.5-15.5CMarietta [facility] on above:Order Comment: Specimen Type: BLOOD SPECIMENOrdering Facility: [facility] Address:[address] [place] [address] Performed By: #### 53938-1 ####[facility] [id number] [place] [address] [place] MCH (RBC) [Entitic mass]28.6 rsGzmmnw51.0-34.0[facility] on above:Order Comment: Specimen Type: BLOOD SPECIMENOrdering Facility: [facility] Address:[address] [place] [address] Performed By: #### 99162-6 ####[facility] [id number] [place] [address] [place] MCHC (RBC) [Mass/Vol]31.8 g/cGWdjqle48.5-36.0[facility] on above:Order Comment: Specimen Type: BLOOD SPECIMENOrdering Facility: [facility] Address:[address] [place] [address] Performed By: #### 66062-1 ####[facility] [id number] [place] [address] [place] MCV (RBC) [Entitic vol]89.9 vRLvwhhu64.0-100.0[facility] on above:Order Comment: Specimen Type: BLOOD SPECIMENOrdering Facility: [facility] Address:[address] [place] [address] Performed By: #### 37020-8 ####[facility] LABCLIA [id number] [place] [address] [place] Nucleated RBC (Bld) [#/Vol]10*3/uLNormal<0.01[facility] on above:Order Comment: Specimen Type: BLOOD SPECIMENOrdering Facility: [facility] Address:[address] [place] [address] Performed By: #### 02357-9 ####[facility] LABCLIA [id number] [place] [address] [place] Platelet mean volume (Bld) [Entitic vol]11.4 fLNormal9.0-12.7CMari[facility] Hospital on above:Order Comment: Specimen Type: BLOOD SPECIMENOrdering Facility: [facility] Address:[address] [place], [place] [address]Performed By: #### 27983-3 ####[facility] [id number] [place] [address] [place] Platelets (Bld) [#/Vol]189 10*3/xEIfurov080-869QjdpcvfmwTriHealth [facility] on above:Order Comment: Specimen Type: BLOOD SPECIMENOrdering Facility: [facility] Address:[address] [place] [address] Performed By: #### 43025-5 ####[facility] [id number] [place] [address] [place] RBC (Bld) [#/Vol]3.36 10*6/uLLow3.90-5.20[facility] on above:Order Comment: Specimen Type: BLOOD SPECIMENOrdering Facility: [facility] Address:[address] [place], [place] [address]Performed By: #### 29093-8 ####[facility] LABCLIA [id number] [place] [address] [place] AMERICAWBC (Bld) [#/Vol]7.03 10*3/uLNormal3.70-11.00[facility]lap Memorial HospitalComment on above:Order Comment: Specimen Type: BLOOD SPECIMENOrdering Facility: [facility] Address:[address] [place], [place] [address], [place] [address]Performed By: #### 12152-8 ####[facility] LABCLIA [id number] [place] [address] [place] AMERICACONSULT PROGon 72-20-8546QLEDUXL PROGNormalDunlap Memorial HospitalMagnesium SerPl-mCncon 82-18-7723Fjbnhbqaq [Mass/Vol]1.8 mg/dLNormal1.7-2.3CMari[facility] on above:Order Comment: Specimen Type: BLOOD SPECIMENOrdering Facility: [facility] Address:[address] [place], [place] [address], [place] [address]Performed By: #### 55187- 9, 61866-6 ####[facility] LABCLIA [id number] [place] [address] [place] AMERICARenal function 2000 panelon 99-46-2225Tianrkd [Mass/Vol]3.2 g/dLLow3.9-4.9CUniversity Hospitals Health System Comment on above:Order Comment: Specimen Type: BLOOD SPECIMENOrdering Facility: [facility] Address:[address] [place] [address] Performed By: #### 30974-4, 59185-2 ####[facility] LABCLIA [id number] [place] [address] [place] Anion gap [Moles/Vol]9 mmol/LNormal8-15[facility] on above:Order Comment: Specimen Type: BLOOD SPECIMENOrdering Facility: [facility] Address:[address] [place], [place] [address]Performed By: #### 10445-6, 62110-6 ####[facility] LABCLIA [id number] [place] [address] [place] AMERICACalcium [Mass/Vol]8.7 mg/dLNormal8.5-10.2CM[facility] on above:Order Comment: Specimen Type: BLOOD SPECIMENOrdering Facility: [facility] Address:[address] [place], [place] [address]Performed By: #### 44877-6, 55142-8 ####[facility] LABCLIA [id number] [place] [address] [place] AMERICAChloride [Moles/Vol]107 mmol/L Ouhlqf34-793SkacjaufoTriHealth Bethesda [facility] on above:Order Comment: Specimen Type: BLOOD SPECIMENOrdering Facility: [facility] Address:[address] [place], [place] [address]Performed By: #### 96970-7, 14595-6 ####[facility] LABCLIA [id number] [place] [address] [place] AMERICACO2 [Moles/Vol]23 mmol/AYvhrjg35-28GjyzjhvlaTriHealth Bethesda [facility] Hospital on above:Order Comment: Specimen Type: BLOOD SPECIMENOrdering Facility: [facility] Address:[address] [place], [place] [address]Performed By: #### 12184-9, 35079-8 ####[facility]CLIA [id number] [place] [address] [place] AMERICACreatinine [Mass/Vol]0.48 mg/dLLow0.58-0.96[facility] on above:Order Comment: Specimen Type: BLOOD SPECIMENOrdering Facility: [facility] Address:[address] [place], [place] [address]Performed By: #### 92730-0, 65380-7 ####[facility] LABCLIA [id number] [place] [address] [place] AMERICACreatinine and Glomerular filtration rate.predicted panel (S/P/Bld)126 mL/min/1.73m???Normal>=60[facility] on above:Order Comment: Specimen Type: BLOOD SPECIMENOrdering Facility: [facility] Address:[address] [place], [place] [address]Result Comment: Estimated Glomerular Filtration Rate (eGFR) is [...] not accurately reflect actual GFR.Performed By: #### 89467-5, 28844-2 ####[facility] [id number] [place] [address] [place] AMERICAGlucose [Mass/Vol]100 mg/dLHigh 74-99[facility] on above:Order Comment: Specimen Type: BLOOD SPECIMENOrdering Facility: [facility] Address:[address] [place], [place] [address]Result Comment: The [place] Of [place] Diabetes Association (ADA) provides guidance for cutoff [...] Standards of Medical Care in Diabetes 2016, [place] Of [place] Diabetes Association. Diabetes Care. 2016.39(Suppl 1).Performed By: #### 90144- 9, 92046-9 ####[facility] LABCLIA [id number] [place] [address] [place] AMERICAPhosphate [Mass/Vol]3.0 mg/dLNormal2.7-4.8CMari[facility] on above:Order Comment: Specimen Type: BLOOD SPECIMENOrdering Facility: [facility] Address:[address] [place], [place] [address]Performed By: #### 79846-1, 27320-6 ####[facility] [id number] [place] [address] [place] AMERICAPotassium [Moles/Vol]3.8 mmol/L Normal3.7-5.1CMarietta Memorial Hospital on above:Order Comment: Specimen Type: BLOOD SPECIMENOrdering Facility: [facility] Address:[address] [place], [place] [address]Performed By: #### 18330-3, 19967-4 ####[facility] [id number] [place] [address] [place] AMERICASodium [Moles/Vol]139 mmol/VDroejg543-639HgqhwribuTriHealth Bethesda [facility] on above:Order Comment: Specimen Type: BLOOD SPECIMENOrdering Facility: [facility] Address:[address] [place], [place] [address]Performed By: #### 26229-4, 24416-7 ####[facility] [id number] [place] [address] [place] AMERICAUrea nitrogen [Mass/Vol]18 mg/dLNormal7-21[facility] on above:Order Comment: Specimen Type: BLOOD SPECIMENOrdering Facility: [facility] Address:[address] [place], [place] [address]Performed By: #### 88915-4, 97709-4 ####[facility] [id number] [place] [address] [place] IPRHWLK14([place])D3 [facility] [id number]-ueukefvtqyjcie D3 [Mass/Vol]32.6 ng/cFPjzcio01.0-80.0[facility] Memorial HospitalComment on above:Order Comment: Specimen Type: BLOOD SPECIMENOrdering Facility: [facility] Address:[address] [place], [place] [address]Performed By: #### 1989-3 ####[facility] [id number] [address] OF [facility] H[facility]PITALCBC panel Auto (Bld)on 08-05-2024 Erythrocyte distribution width (RBC) [Ratio]15.3 %High11.5-15.0[facility] Memorial HospitalComment on above:Order Comment: Specimen Type: BLOOD SPECIMENOrdering Facility: [facility] Address:[address] [place], [place] [address]Performed By: #### 19849-5 ####[facility] [id number] [address] [place] Hematocrit (Bld) [Volume fraction]31.9 %Low36.0-46.0[facility] Comment on above:Order Comment: Specimen Type: BLOOD SPECIMENOrdering Facility: [facility] Address:[address] [place] [address] Performed By: #### 79650-7 ####[facility] [id number] [address] [place] Hemoglobin (Bld) [Mass/Vol]10.1 g/dLLow11.5-15.5CUniversity Hospitals Health System Comment on above:Order Comment: Specimen Type: BLOOD SPECIMENOrdering Facility: [facility] Address:[address] [place] [address] Performed By: #### 21388-9 ####[facility] [id number] [place] [address] [place] MCH (RBC) [Entitic mass]27.9 nyWwbgxn88.0-34.0[facility] Memorial HospitalComtrinity health [facility] on above:Order Comment: Specimen Type: BLOOD SPECIMENOrdering Facility: [facility] Address:[address] [place] [address] Performed By: #### 26616-9 ####[facility] [id number] [place] [address] [place] MCHC (RBC) [Mass/Vol]31.7 g/dKAeyoqg45.5-36.0[facility] on above:Order Comment: Specimen Type: BLOOD SPECIMENOrdering Facility: [facility] Address:[address] [place] [address] Performed By: #### 51734-8 ####[facility] [id number] [place] [address] [place] MCV (RBC) [Entitic vol]88.1 lXZoccxv75.0-100.0[facility] on above:Order Comment: Specimen Type: BLOOD SPECIMENOrdering Facility: [facility] Address:[address] [place] [address] Performed By: #### 92782-0 ####[facility] [id number] [place] [address] [place] Nucleated RBC (Bld) [#/Vol]10*3/uLNormal<0.01[facility] on above:Order Comment: Specimen Type: BLOOD SPECIMENOrdering Facility: [facility] Address:[address] [place] [address] Performed By: #### 39401-5 ####[facility] [id number] [place] [address] [place] Platelet mean volume (Bld) [Entitic vol]11.9 fLNormal9.0-12.7CMarietta Memorial Hospital on above:Order Comment: Specimen Type: BLOOD SPECIMENOrdering Facility: [facility] Address:[address] [place], [place] [address]Performed By: #### 39768-6 ####[facility] LABCLIA [id number] [address] [address] [place] Platelets (Bld) [#/Vol]215 10*3/jOBedkzh046-315UrxqelhmhTriHealth [facility]hesda [facility] on above:Order Comment: Specimen Type: BLOOD SPECIMENOrdering Facility: [facility] Address:[address] [place] [address] Performed By: #### 32354-2 ####[facility] [id number] [place] [address] [place] RBC (Bld) [#/Vol]3.62 10*6/uLLow3.90-5.20[facility] on above:Order Comment: Specimen Type: BLOOD SPECIMENOrdering Facility: [facility] Address:[address] [place], [place] [address]Performed By: #### 42239-2 ####[facility] [id number] [place] [address] [place] AMERICAWBC (Bld) [#/Vol]7.60 10*3/uLNormal3.70-11.00[facility] on above:Order Comment: Specimen Type: BLOOD SPECIMENOrdering Facility: [facility] Address:[address] [place], [place] [address]Performed By: #### 94806-4 ####[facility] [id number] [place] [address] [place] AMERICACONSULT PROGon 53-72-6469JOSKLPB PROGNormalDunlap Memorial HospitalCONSULT PROGNormalDunlap Memorial Hospital Magnesium SerPl-mCncon 93-50-1305Qsiqkntyb [Mass/Vol]1.7 mg/dLNormal1.7-2.3 [facility] on above:Order Comment: Specimen Type: BLOOD SPECIMENOrdering Facility: [facility] Address:[address] [place], [place] [address]Performed By: #### 93970-6, 88943-0 ####[facility] LABCLIA [id number] [place] [address] [place] AMERICARenal function 2000 panelon 19-36-7448Wuumoja [Mass/Vol]3.6 g/dLLow3.9-4.9CMarietta Memorial Hospital on above:Order Comment: Specimen Type: BLOOD SPECIMENOrdering Facility: [facility] Address:[address] [place], [place] [address]Performed By: #### 54861-6, 47394-6 ####[facility] LABCL[facility] [id number] [place] [address] [place] AMERICAAnion gap [Moles/Vol]10 mmol/L Normal8-15[facility] on above:Order Comment: Specimen Type: BLOOD SPECIMENOrdering Facility: [facility] Address:[address] [place], [place] [address]Performed By: #### 47601-5, 43321-9 ####[facility]CL[facility] [id number] [place] [address] [place] AMERICACalcium [Mass/Vol]9.2 mg/dLNormal8.5-10.2CMarietta Memorial Hospital on above:Order Comment: Specimen Type: BLOOD SPECIMENOrdering Facility: [facility] Address:[address] [place], [place] [address]Performed By: #### 05238-1, 26086-8 ####[facility]CL[facility] [id number] [place] [id number] [place] AMERICAChloride [Moles/Vol]103 mmol/ZNqvxmv93-076YvxhevaoeTriHealth Bethes[facility] on above:Order Comment: Specimen Type: BLOOD SPECIMENOrdering Facility: [facility] Address:[address] [place], [place] [address]Performed By: #### 92860-5, 94937-9 ####[facility] [id number] [place] [address] [place] AMERICACO2 [Moles/Vol]25 mmol/OGfcxej37-19SolwevfbaTriHealth [facility]hes[facility] on above:Order Comment: Specimen Type: BLOOD SPECIMENOrdering Facility: [facility] Address:[address] [place], [place] [address]Performed By: #### 25029-2, 67832-9 ####[facility] [id number] [place] [address] [place] AMERICACreatinine [Mass/Vol] 0.52 mg/dLLow0.58-0.96[facility] on above:Order Comment: Specimen Type: BLOOD SPECIMENOrdering Facility: [facility] Address:[address] [place], [place] [address]Performed By: #### 49947-7, 65231-8 ####[facility] [id number] [place] [address] [place] AMERICACreatinine and Glomerular filtration rate.predicted panel (S/P/Bld)124 mL/min/1.73m???Normal>=60[facility] on above:Order Comment: Specimen Type: BLOOD SPECIMENOrdering Facility: [facility] Address:[address] [place], [place] [address]Result Comment: Estimated Glomerular Filtration Rate (eGFR) is calculated using the 2020 CKD-EPI creatinine equation. This equation utilizes serum creatinine, sex, and age as parameters. The creatinine assay has traceable calibration to isotope dilution-mass spectrometry. Refer to KDIGO guidelines for clinical interpretation. In patients with unstable renal function, e.g. those with acute kidney injury, the eGFR may not accurately reflect actual GFR.Performed By: #### 46770-1, 72852-3 ####[facility] [id number] [place] [address] [place] AMERICAGlucose [Mass/Vol]76 mg/uFNfciub65-79EqfsguiyhDunlap Memorial Hospital Comment on above:Order Comment: Specimen Type: BLOOD SPECIMENOrdering Facility: [facility] Address:[address] [place], [place] [id number] Comment: The [place] Diabetes Association (ADA) provides guidance for cutoff [...] Standards of Medical Care in Diabetes 2016, [place] Diabetes Association. Diabetes Care. 2016.39(Suppl 1).Performed By: #### 26117-3, 87469-0 ####[facility] LABCL[facility] [id number] [place] [address] [place] AMERICAPhosphate [Mass/Vol]3.6 mg/dLNormal2.7-4.8CUniversity Hospitals Health SystemComment on above:Order Comment: Specimen Type: BLOOD SPECIMENOrdering Facility: [facility] Address:[address] [place], [place] [id number] By: #### 14203-5, 91074-3 ####[facility] LABCLIA [id number] [place] [address] [place] OF AMERICAPotassium [Moles/Vol]4.0 mmol/LNormal3.7-5.1CUniversity Hospitals Health System Comment on above:Order Comment: Specimen Type: BLOOD SPECIMENOrdering Facility: [facility] Address:[address] [place] [address] Performed By: #### 44973-2, 56600-1 ####[facility] LABCLIA [id number] [place] [address] [place] Sodium [Moles/Vol]138 mmol/RIsdcle852-088McnywbmxjDunlap Memorial HospitalComtrinity health [facility] on above:Order Comment: Specimen Type: BLOOD SPECIMENOrdering Facility: [facility] Address:[address] [place], [place] [address]Performed By: #### 57144-8, 25638-9 ####[facility] LABCLIA [id number] [place] [address] [place] AMERICAUrea nitrogen [Mass/Vol]20 mg/dLNormal7-21Dunlap Memorial HospitalComment on above:Order Comment: Specimen Type: BLOOD SPECIMENOrdering Facility: [facility] Address:[address] [place], [place] [address]Performed By: #### 57192- 9, 10652-4 ####[facility] LABCLIA [id number] [facility] HOSPITALHaleigh Moreau [place] [place] [address] [place] AMERICACASE MANAGEMon 13-52-4715CFFH MANAGEMNormalDunlap Memorial HospitalCHROMIUM BLOODon 85-05-6055Rwvsqzkv (Bld) [Mass/Vol]0.8 ug/LHigh<0.6CUniversity Hospitals Health System Comment on above:Order Comment: Specimen Type: BLOOD SPECIMENOrdering Facility: [facility] Address:[address] [place], [place] [address]Result Comment: This test was developed, and its performance characteristics determined by the [facility] Department of Pathology and Laboratory Medicine. It has not been cleared or approved bythe FDA. The [facility] Department of Pathology and Laboratory Medicine is regulated under CLIA as qualified to perform high-complexity testing. This test is used for clinical purposes. It should not be regarded as investigational or for research.Performed By: #### JUAN, CHROM ####[facility] LABCLIA [id number] [place] [address] [place] AMERICACONSULT PROGon 82-68-9305LBHTJIJ PROGNormalDunlap Memorial HospitalCONSULT PROGNormal [facility] Clepeoples hospitalCOPPER BLOODon 94-70-0809Otoqbz [Mass/Vol]130 ug/dL Fopmco22-757IsmlsdkccDunlap Memorial HospitalComment on above:Order Comment: Specimen Type: BLOOD SPECIMENOrdering Facility: [facility] Address:[address] [place], [place] [address]Result Comment: This test was developed, and its performance characteristics determined by the [facility] Department of Pathology and Laboratory Medicine. It has not been cleared or approved bythe FDA. The [facility] Department of Pathology and Laboratory Medicine is regulated under CLIA as qualified to perform high-complexity testing. This test is used for clinical purposes. It should not be regarded as investigational or for research.Performed By: #### COPPER, 5763-8 ####[facility] LABCLIA [id number] [place] [address] [place] AMERICACRP SerPl-mCncon 18-12-0285XFT [Mass/Vol]mg/LNormal<0.9CMarietta Memorial Hospital on above:Order Comment: Specimen Type: BLOOD SPECIMENOrdering Facility: [facility] Address:[address] [place], [place] [address]Performed By: #### 1988-5, 24009-0, 61505-7 ####[facility] LABCLIA [id number], [place] [address] [place] AMERICAFATTY ACIDS PROFILE, ESSENTIALon 86-67-5567S-LINOLENIC ACID, C18 3W335 nmol/fUPldvre88-527XncrugebrTriHealth [facility]hes[facility] on above:Order Comment: Specimen Type: BLOOD SPECIMENOrdering Facility: [facility] Address:[address] [place], [place] [address]Performed By: #### CFAPRO ####[facility]IESCLIA [id number] [place] [address] ARACHIDIC ACID, C20 020 nmol/mLNormal8-43[facility] on above:Order Comment: Specimen Type: BLOOD SPECIMENOrdering Facility: [facility] Address:[address] [place], [place] [address]Performed By: #### CFAPRO ####[facility]IESCLIA [id number] [place], [place] [address]GODZMUUXSML ACID, C20 5D2177 nmol/fWXuuoip186-8452IcfvkfiniTriHealth Bethesda North Hospital on above:Order Comment: Specimen Type: BLOOD SPECIMENOrdering Facility: [facility] Address:[address] [place], [place] [address]Performed By: #### CFAPRO ####[facility]IESCLIA [id number] [place], [place] [address]RIW, C22 5K3845 nmol/qAWuvjxt25-521StwfsgtwyTriHealth Bethesda North Hospital on above:Order Comment: Specimen Type: BLOOD SPECIMENOrdering Facility: [facility] Address:[address] [place], [place] [address]Performed By: #### CFAPRO ####[facility]IESCLIA [id number] [place], [place] [address]GYUZAPSUGQ ACID, C22 14 nmol/mLNormal1-10[facility] on above:Order Comment: Specimen Type: BLOOD SPECIMENOrdering Facility: [facility] Address:[address] [place], [place] [address]Performed By: #### CFAPRO ####[facility]IESCLIA [id number] [place], [place] [address]EDZ, C22 5W351 nmol/mLNormal 13-75[facility] on above:Order Comment: Specimen Type: BLOOD SPECIMENOrdering Facility: [facility] Address:[address] [place], [place] [address]Performed By: #### CFAPRO ####[facility]IESCLIA [id number] [place], [place] [address]ILV, C22 5W629 nmol/mLNormal 6-55[facility] on above:Order Comment: Specimen Type: BLOOD SPECIMENOrdering Facility: [facility] Address:[address] [place], [place] [address]Performed By: #### CFAPRO ####[facility]IESCLIA [id number] [place], [place] [address]UQV, C22 4W625 nmol/mLNormal 10-40[facility] on above:Order Comment: Specimen Type: BLOOD SPECIMENOrdering Facility: [facility] Address:[address] [place], [place] [address]Performed By: #### CFAPRO ####[facility]IESCLIA [id number] [place], [place] [address]VPQ FATTY ACIDS PROF, ESSENTIAL SPSee NoteNormalCMarietta Memorial Hospital on above:Order Comment: Specimen Type: BLOOD SPECIMENOrdering Facility: [facility] Address:[address] [place], [place] [address]Result Comment: Authorized individuals can access the Reactivity Enhanced Reportwith an [employer] Connect account using the following link.Your local lab can assist you in obtaining the patientreport if you don't have a Connect account.[email or web address] By: NENITA Choi [place], [place] [address]Xmpgbldkke Director: Hugo Ramsey MD, PhDCLIA Number: [id number] By: #### CFAPRO ####[facility]IESCLIA [id number] [place], [place] [address]PWP, C20 5W3 144 nmol/mLHigh8-130[facility] on above:Order Comment: Specimen Type: BLOOD SPECIMENOrdering Facility: [facility] Address:[address] [place], [place] [address]Performed By: #### CFAPRO ####[facility]ORATORIESCLIA [id number] [place], [place] [address]E-NHQEPARXA ACID, C18 3W692 nmol/fDOxcbjy66-977KnyliiklpTriHealth Bethesda North Hospital on above: Order Comment: Specimen Type: BLOOD SPECIMENOrdering Facility: [facility] Address:[address] [place], [place] [address]Performed By: #### CFAPRO ####[facility] LABORATORIESCLIA [id number] [place] [address] [id number]-V-TLMAZAFJK C20:3F6161 nmol/aNKpbgvq38-489GnyaepnofTriHealth Bethes[facility] Hospital on above:Order Comment: Specimen Type: BLOOD SPECIMENOrdering Facility: [facility] Address:[address], [place], [place] [address]Hhslfhcsi By: #### CFAPRO ####[facility]IESCLIA [id number] [place], [place] [address]EUXJJDBWYAXU ACID, C16 1W944 nmol/gONwdydd29-37WamuiatfkDunlap Memorial Hospital Comment on above:Order Comment: Specimen Type: BLOOD SPECIMENOrdering Facility: [facility] Address:[address] [place] [id number] Performed By: #### CFAPRO ####[facility]ATORIESCLIA [id number] [place], [place] [address]UDCDUWAMABJXOP, FATTY ACID PROFILESee NoteNormal [facility] on above:Order Comment: Specimen Type: BLOOD SPECIMENOrdering Facility: [facility] Address:[address] [place], [place] [address]Result Comment: In this sample the concentration of omega-3 eicosapentaenoic acid(EPA) was mildly elevated suggesting dietary supplements.Results reviewed and interpreted by Herlinda Gillespie, PhD, [facility] INTERPRETIVE INFORMATION: Fatty Acids Profile, Essential Ser/PlasThis test does not screen for disorders of peroxisomalbiogenesis/function.This test was developed and its performance characteristicsdetermined by [employer]. It has not been cleared orapproved by the [place] Food and Drug Administration. This test wasperformed in a CLIA certified laboratory and is intended forclinical purposes.Performed By: #### CFAPRO ####[facility]IESCLIA [id number] [place], [place] [address]TLFGQZ ACID, C12 02 nmol/mLNormal1-200 [facility] on above:Order Comment: Specimen Type: BLOOD SPECIMENOrdering Facility: [facility] Address:[address] [place] [id number] By: #### CFAPRO ####[facility]IESCLIA [id number] [place], [place] [address]FGKLURQY ACID, C18 7U67881 nmol/lECnxqgv6105-9022EktumlryzTriHealth [facility]hesda [facility] Hospital on above:Order Comment: Specimen Type: BLOOD SPECIMENOrdering Facility: [facility] Address:[address], [place], [place] [address]Uegiprxai By: #### CFAPRO ####[facility]ATORIESCLIA [id number] [place], [place] [address]EILS ACID, C20 3W910 nmol/mLNormal1-35[facility] on above:Order Comment: Specimen Type: BLOOD SPECIMENOrdering Facility: [facility] Address:[address] [place], [place] [address]Performed By: #### CFAPRO ####[facility]ATORIESCLIA [id number] [place] [address] MYRISTIC ACID, C14 0113 nmol/uWOawsxt38-699LitfozxqqTriHealth Bethesda [facility] Hospital on above:Order Comment: Specimen Type: BLOOD SPECIMENOrdering Facility: [facility] Address:[address] [place], [place] [address]Performed By: #### CFAPRO ####[facility]IESCLIA [id number] [place], [place] [address]BJFZVNPU ACID, C24 0X7099 nmol/sPBmsgpd65-459VvlpdgiamDunlap Memorial Hospital Comment on above:Order Comment: Specimen Type: BLOOD SPECIMENOrdering Facility: [facility] Address:[address] [place] [address] Performed By: #### CFAPRO ####[facility]IESCLIA [id number] [place], [place] [address]DUJDL ACID, C18 8H68937 nmol/fMFzytja255-8645 [facility] on above:Order Comment: Specimen Type: BLOOD SPECIMENOrdering Facility: [facility] Address:[address] [place], [place] [address]Performed By: #### CFAPRO ####[facility]IESCLIA [id number] [place], [place] [address]VQVBJOHJ ACID, C16 [address] nmol/dGJldptb9640-2331RljblhuceTriHealth Bethesda North Hospital on above:Order Comment: Specimen Type: BLOOD SPECIMENOrdering Facility: [facility] Address:[address] [place], [place] [address]Performed By: #### CFAPRO ####[facility]ATORIESCLIA [id number] [place], [place] [address]WPATQQTQJOA ACID, C16 1M5493 nmol/yMQftknz84-665JxymkdodzTriHealth [facility]hesda [facility] Hospital on above: Order Comment: Specimen Type: BLOOD SPECIMENOrdering Facility: [facility] Address:[address] [place], [place] [address]Performed By: #### CFAPRO ####[facility]IESCLIA [id number] [place] [address] STEARIC ACID, C18 0607 nmol/kPAjiyve147-4541DpngnhiheTriHealth Bethesda North Hospital on above:Order Comment: Specimen Type: BLOOD SPECIMENOrdering Facility: [facility] Address:[address] [place], [place] [address]Performed By: #### CFAPRO ####[facility]ATORIESCLIA [id number] [place], [place] [address]VNXKN FATTY ACIDS10.0 mmol/LNormal4.5-15.0[facility] on above:Order Comment: Specimen Type: BLOOD SPECIMENOrdering Facility: [facility] Address:[address] [place] [address] Performed By: #### CFAPRO ####[facility]IESCLIA [id number] [place], [place] [address]FUUVR MONOUNSATURATED ACIDS2.8 mmol/LNormal0.9-4.7 [facility] on above:Order Comment: Specimen Type: BLOOD SPECIMENOrdering Facility: [facility] Address:[address] [place], [place] [address]Performed By: #### CFAPRO ####[facility]IESCLIA [id number] [place], [place] [address]CNLDU POLYUNSATURATED ACIDS3.5 mmol/LNormal2.1-6.2CMarietta Memorial Hospital on above:Order Comment: Specimen Type: BLOOD SPECIMENOrdering Facility: [facility] Address:[address] [place], [place] [address]Performed By: #### CFAPRO ####[facility]ATORIESCLIA [id number] [place], [place] [address]PTICQ SATURATED ACIDS3.6 mmol/LNormal1.5-5.3CMarietta Memorial Hospital on above:Order Comment: Specimen Type: BLOOD SPECIMENOrdering Facility: [facility] Address:[address] [place], [place] [address]Performed By: #### CFAPRO ####[facility]ATORIESCLIA [id number] [place], [place] [address]GSWYO W30.44 mmol/LNormal0.12-0.55[facility] on above:Order Comment: Specimen Type: BLOOD SPECIMENOrdering Facility: [facility] Address:[address] [place], [place] [address]Performed By: #### CFAPRO ####[facility]ATORIESCLIA [id number] [place], [place] [address]MOYON W63.1 mmol/LNormal1.8-5.7CMarietta Memorial Hospital on above: Order Comment: Specimen Type: BLOOD SPECIMENOrdering Facility: [facility] Address:[address] [place], [place] [address]Performed By: #### CFAPRO ####[facility]ORATORIESCLIA [id number] [place] [address] TRIENE/TETRAENE RATIO0.086Ofesjy3.004-0.051CMarietta Memorial Hospital on above:Order Comment: Specimen Type: BLOOD SPECIMENOrdering Facility: [facility] Address:[address] [place], [place] [address]Performed By: #### CFAPRO ####[facility]ORATORIESCLIA [id number] [place], [place] [address]SYOBUTBY ACID, C18 0I2814 nmol/zJTksdqo97-032EmyhrwllaDunlap Memorial Hospital Comment on above:Order Comment: Specimen Type: BLOOD SPECIMENOrdering Facility: [facility] Address:[address] [place] [address] Performed By: #### CFAPRO ####[facility]ATORIESCLIA [id number] [place], [place] [address]SCFUDJHLC BLDon 00-21-0162Zivuadtxt (Bld) [Mass/Vol] 7.3 ug/LNormal4.4-15.2CMarietta Memorial Hospital on above:Order Comment: Specimen Type: BLOOD SPECIMENOrdering Facility: [facility] Address:[address] [place], [place] [address]Result Comment: This test was developed, and its performance characteristics determined by the [facility] Department of Pathology and Laboratory Medicine. It has not been cleared or approved bythe FDA. The [facility] Department of Pathology and Laboratory Medicine is regulated under CLIA as qualified to perform high- complexity testing. This test is used for clinical purposes. It should not be regarded as investigational or for research.Performed By: #### JUAN, CHROM ####[facility] LABCLIA [id number] [place] [address] [place] AMERICAMagnesium SerPl-mCncon 08-04-2024 Magnesium [Mass/Vol]1.9 mg/dLNormal1.7-2.3CMarietta Memorial Hospital on above:Order Comment: Specimen Type: BLOOD SPECIMENOrdering Facility: [facility] Address:[address] [place], [place] [address]Performed By: #### 1987-11, , 67470-6 ####[facility] LABIA [id number] [address] [place] NURSING PROGon 50-61-6562FPIKFAT PROGNormalDunlap Memorial HospitalRenal function 2000 panelon 79-33-3883Sexwrqu [Mass/Vol]3.4 g/dLLow3.9-4.9CMarietta Memorial Hospital on above:Order Comment: Specimen Type: BLOOD SPECIMENOrdering Facility: [facility] Address:[address] [place], [place] [address]Performed By: #### 1987-11, , 09204-3 ####[facility] LABIA [id number] VILLE [address] [place] AMERICAAnion gap [Moles/Vol]6 mmol/LLow8-15[facility] on above:Order Comment: Specimen Type: BLOOD SPECIMENOrdering Facility: [facility] Address:[address] [place], [place] [address]Performed By: #### 1987-11, , ####[facility] LABCLIA [id number] [address] [place] AMERICACalcium [Mass/Vol]9.5 mg/dLNormal8.5-10.2CMarietta Memorial Hospital on above:Order Comment: Specimen Type: BLOOD SPECIMENOrdering Facility: [facility] Address:[address] [place], [place] [address]Performed By: #### 1987-11, , ####[facility] LABCLIA [id number] [address] [place] AMERICAChloride [Moles/Vol]103 mmol/QAydrsj53-155 [facility] on above:Order Comment: Specimen Type: BLOOD SPECIMENOrdering Facility: [facility] Address:[address] [place], [place] [address]Performed By: #### 1987-11, , ####[facility] LABIA [id number], [place] [address] [place] AMERICACO2 [Moles/Vol]30 mmol/NIqevnw73-34SqfddyibjTriHealth [facility] on above:Order Comment: Specimen Type: BLOOD SPECIMENOrdering Facility: [facility] Address:[address] [place], [place] [address]Performed By: #### 1987-11, , ####[facility] LABIA [id number] VILLE [address] [place] AMERICACreatinine [Mass/Vol]0.53 mg/dLLow0.58-0.96 [facility] on above:Order Comment: Specimen Type: BLOOD SPECIMENOrdering Facility: [facility] Address:[address] [place], [place] [address]Performed By: #### 1988-, ####[facility] LABCLIA [id number] [address] [place] AMERICACreatinine and Glomerular filtration rate.predicted panel (S/P/Bld)123 mL/min/1.73m???Normal>=60[facility] on above:Order Comment: Specimen Type: BLOOD SPECIMENOrdering Facility: [facility] Address:[address] [place], [place] [address]Result Comment: Estimated Glomerular Filtration Rate (eGFR) is [...] actual GFR. Performed By: #### 1987-11, , ####[facility] LABCLIA [id number] VILLE [address] [place] AMERICAGlucose [Mass/Vol]75 mg/vWPsebcj76-92LiuwlyhluTriHealth [facility]hes[facility] on above:Order Comment: Specimen Type: BLOOD SPECIMENOrdering Facility: [facility] Address:[address] [place], [place] [address]Result Comment: The Citizen Of [place] Diabetes Association (ADA) provides guidance for cutoff [...] Standards of Medical Care in Diabetes 2016, Citizen Of [place] Diabetes Association. Diabetes Care. 2016.39(Suppl 1).Performed By: #### 1987-11, , ####[facility] LABCLIA [id number] [address] [place] AMERICAPhosphate [Mass/Vol]4.1 mg/dLNormal2.7-4.8 [facility] on above:Order Comment: Specimen Type: BLOOD SPECIMENOrdering Facility: [facility] Address:[address] [place], [place] [address]Performed By: #### 1987-11, , ####[facility] LABIA [id number][place] [address] [place] AMERICAPotassium [Moles/Vol]4.2 mmol/LNormal3.7-5.1 [facility] on above:Order Comment: Specimen Type: BLOOD SPECIMENOrdering Facility: [facility] Address:[address] [place], [place] [address]Performed By: #### 1987-11, , ####[facility] LABIA [id number] [address] [place] AMERICASodium [Moles/Vol]139 mmol/HNypnqm677-797FlctbzrriTriHealth [facility] on above:Order Comment: Specimen Type: BLOOD SPECIMENOrdering Facility: [facility] Address:[address] [place], [place] [address]Performed By: #### 1987-11, , ####[facility] LABIA [id number] VILLE [address] [place] AMERICAUrea nitrogen [Mass/Vol]17 mg/dLNormal7-21 [facility] on above:Order Comment: Specimen Type: BLOOD SPECIMENOrdering Facility: [facility] Address:[address] [place], [place] [address]Performed By: #### 1987-11, , ####[facility] LABIA [id number] [address] STATES OF AMERICASelenium Bld-mCncon 03-29-3830Jndrodof (Bld) [Mass/Vol]125.3 ug/PLxxaai75.0-234.0[facility] on above: Order Comment: Specimen Type: BLOOD SPECIMENOrdering Facility: [facility] Address:[address] [place], [place] [address]Result Comment: This test was developed, and its performance characteristics determined by the [facility] Department of Pathology and Laboratory Medicine. It has not been cleared or approved bywilson health FDA. The [facility] of Pathology and Laboratory Medicine is regulated under CLIA as qualified to perform high- complexity testing. This test is used for clinical purposes. It should not be regarded as investigational or for research.Performed By: #### 5722-4 ####[facility] LABCLIA [id number] [address] STATES OF AMERICAZinc SerPl-mCncon 48-97-3623Mdic [Mass/Vol]48 ug/vGZgc19-175ObgvucfpkTriHealth [facility]hes[facility] on above:Order Comment: Specimen Type: BLOOD SPECIMENOrdering Facility: [facility] Address:[address] [place], [place] [address]Result Comment: This test was developed, and its performance characteristics determined by the [facility] Department of Pathology and Laboratory Medicine. It has not been cleared or approved bywilson health FDA. The [facility] Department of Pathology and Laboratory Medicine is regulated under CLIA as qualified to perform high- complexity testing. This test is used for clinical purposes. It should not be regarded as investigational or for research.Performed By: #### COPPER, 5763-8 ####[facility] LABIA [id number] [place] [address] [place] AMERICACASE MANAGEMon 58-19-3907CVLL MANAGEMNormalDunlap Memorial HospitalCB panel Auto (Bld)on 08-03-2024 Erythrocyte distribution width (RBC) [Ratio]15.3 %High11.5-15.0[facility] on above:Order Comment: Specimen Type: BLOOD SPECIMENOrdering Facility: [facility] Address:[address] [place], [place] [address]Performed By: #### 93933-6 ####[facility] LABCLIA [id number] [place] [address] [place] Hematocrit (Bld) [Volume fraction]34.0 %Low36.0-46.0[facility] Comment on above:Order Comment: Specimen Type: BLOOD SPECIMENOrdering Facility: [facility] Address:[address] [place] [address] Performed By: #### 87754-7 ####[facility] LABCLIA [id number] [place] [address] [place] Hemoglobin (Bld) [Mass/Vol]11.0 g/dLLow11.5-15.5CUniversity Hospitals Health System Comment on above:Order Comment: Specimen Type: BLOOD SPECIMENOrdering Facility: [facility] Address:[address] [place] [address] Performed By: #### 39835-6 ####[facility] LABIA [id number] [place] [address] [place] MCH (RBC) [Entitic mass]27.6 tdSvzhst69.0-34.0Dunlap Memorial HospitalComment on above:Order Comment: Specimen Type: BLOOD SPECIMENOrdering Facility: [facility] Address:[address] [place] [address] Performed By: #### 35968-4 ####[facility] LABCLIA [id number] [place] [address] [place] MCHC (RBC) [Mass/Vol]32.4 g/xAWmuaik42.5-36.0Dunlap Memorial HospitalComment on above:Order Comment: Specimen Type: BLOOD SPECIMENOrdering Facility: [facility] Address:[address] [place] [address] Performed By: #### 96524-4 ####[facility] LABCLIA [id number] [place] [address] [place] MCV (RBC) [Entitic vol]85.2 jTSefiwx57.0-100.0[facility] on above:Order Comment: Specimen Type: BLOOD SPECIMENOrdering Facility: [facility] Address:[address] [place] [address] Performed By: #### 93928-8 ####[facility] [id number] [place] [address] [place] Nucleated RBC (Bld) [#/Vol]10*3/uLNormal<0.01[facility] on above:Order Comment: Specimen Type: BLOOD SPECIMENOrdering Facility: [facility] Address:[address] [place] [address] Performed By: #### [id number] ####[facility] [facility] [id number] [place] [address] [place] Platelet mean volume (Bld) [Entitic vol]10.7 fLNormal9.0-12.7CMari[facility] on above:Order Comment: Specimen Type: BLOOD SPECIMENOrdering Facility: [facility] Address:[address] [place], [place] [address]Performed By: #### 30420-4 ####[facility] [id number] [place] [address] [place] Platelets (Bld) [#/Vol]234 10*3/vRJfvwme710-314KtbbjabbfTriHealth [facility] on above:Order Comment: Specimen Type: BLOOD SPECIMENOrdering Facility: [facility] Address:[address] [place] [address] Performed By: #### 98215-9 ####[facility] [id number] [place] [address] [place] RBC (Bld) [#/Vol]3.99 10*6/uLNormal3.90-5.20[facility] on above:Order Comment: Specimen Type: BLOOD SPECIMENOrdering Facility: [facility] Address:[address] [place], [place] [address]Performed By: #### 27229-4 ####[facility] LABCLIA [id number] [place] [address] [place] AMERICAWBC (Bld) [#/Vol]5.71 10*3/uLNormal3.70-11.00[facility] on above:Order Comment: Specimen Type: BLOOD SPECIMENOrdering Facility: [facility] Address:[address] [place], [place] [address]Performed By: #### 97504-8 ####[facility] LABCLIA [id number] [place] [address] [place] AMERICACONSULT PROGon 65-06-1661EQVUUVF PROGNormalDunlap Memorial HospitalCONSULT PROGNormalDunlap Memorial Hospital CONSULT PROGNormalDunlap Memorial HospitalCRP SerPl-mCncon 32-91-3010VPD [Mass/Vol]0.5 mg/dLNormal<0.9CMarietta [facility] on above:Order Comment: Specimen Type: BLOOD SPECIMENOrdering Facility: [facility] Address:[address] [place], [place] [address]Performed By: #### 95451- 9, 39743-5, 2143-6, 1987- ####[facility] LABCLIA [id number] [place] [address] [place] AMERICACortis SerPl-mCncon 00-32-8034Fagfohmm [Mass/Vol]5.2 ug/dLNormal4.8-19.5CM[facility] on above:Order Comment: Specimen Type: BLOOD SPECIMENOrdering Facility: [facility] Address:[address] [place], [place] [address]Result Comment: Provided reference range is from 6-10 AM sample collection time.Cortisol Reference Range: 6-10 AM = 4.8-19.5 ug/dL, 4-8 PM = 2.5-11.9 ug/dLPerformed By: #### 24366-5, 83260-0, 2142-12, 1987-11 ####[facility] LABCLIA [id number] [place] [id number] [place] AMERICAECG COMPLETEon 92-87-1474NCO COMPLETENormalCUniversity Hospitals Health SystemMagnesium SerPl-mCncon 08-03-2024 Magnesium [Mass/Vol]2.3 mg/dLNormal1.7-2.3CMari[facility] on above:Order Comment: Specimen Type: BLOOD SPECIMENOrdering Facility: [facility] Address:[address] [place], [place] [address]Performed By: #### 62460-1, 75556-9, 2142-12, 1987-11 ####[facility] LABCLIA [id number] [place] [address] [place] Renal function 2000 panelon 62-75-8624Nsfaeqg [Mass/Vol]3.5 g/dLLow3.9-4.9 [facility] on above:Order Comment: Specimen Type: BLOOD SPECIMENOrdering Facility: [facility] Address:[address] [place], [place] [address]Performed By: #### 90112-1, 98932-7, 2142-12, 1987-11 ####[facility] LABCLIA [id number] [place] [address] [place] AMERICAAnion gap [Moles/Vol]10 mmol/L Normal8-15[facility] on above:Order Comment: Specimen Type: BLOOD SPECIMENOrdering Facility: [facility] Address:[address] [place], [place] [address]Performed By: #### 18519-8, 16940-9, 2142-12, 1987-11 ####[facility] LABCLIA [id number] [place] [address] [place] AMERICACalcium [Mass/Vol]9.2 mg/dL Normal8.5-10.2CMarietta [facility] on above:Order Comment: Specimen Type: BLOOD SPECIMENOrdering Facility: [facility] Address:[address] [place], [place] [address]Performed By: #### 68393-7, 17530-7, 2142-12, 1987-11 ####[facility] LABCLIA [id number] [place] [id number] [place] AMERICAChloride [Moles/Vol]100 mmol/L Zqvsgh39-246BbocmigcnTriHealth [facility] on above:Order Comment: Specimen Type: BLOOD SPECIMENOrdering Facility: [facility] Address:[address] [place], [place] [address]Performed By: #### 03402-7, 09353-8, 2142-12, 1987-11 ####[facility] LABCLIA [id number] [place] [id number] [place] AMERICACO2 [Moles/Vol]28 mmol/LNormal 22-30[facility] on above:Order Comment: Specimen Type: BLOOD SPECIMENOrdering Facility: [facility] Address:[address] [place], [place] [address]Performed By: #### 96253-3, 26080-8, 2142-12, 1987-11 ####[facility] LABCLIA [id number] [place] [address] [place] AMERICACreatinine [Mass/Vol]0.56 mg/dL Low0.58-0.96[facility] on above:Order Comment: Specimen Type: BLOOD SPECIMENOrdering Facility: [facility] Address:[address] [place], [place] [address]Performed By: #### 66832-7, 43677-3, 2142-12, 1987-11 ####[facility] LABCLIA [id number] [place] [address] [place] AMERICACreatinine and Glomerular filtration rate.predicted panel (S/P/Bld)121 mL/min/1.73m???Normal>=60[facility] on above:Order Comment: Specimen Type: BLOOD SPECIMENOrdering Facility: [facility] Address:[address] [place] [id number] Comment: Estimated Glomerular Filtration Rate (eGFR) is calculated using the 2020 CKD-EPI creatinine equation. This equation utilizes serum creatinine, sex, and age as parameters. The creatinine assay has traceable calibration to isotope dilution-mass spectrometry. Refer to KDIGO guidelines for clinical interpretation. In patients with unstable renal function, e.g. those with acute kidney injury, the eGFR may not accurately reflect actual GFR.Performed By: #### 15857-0, 50151-7, 2142-12, 1987-11 ####[facility] LABCLIA [id number] [place] [address] [place] AMERICAGlucose [Mass/Vol]99 mg/dLNormal 74-99[facility] on above:Order Comment: Specimen Type: BLOOD SPECIMENOrdering Facility: [facility] Address:[address] [place], [place] [address] [id number] Comment: The [place] Diabetes Association (ADA) provides guidance for cutoff [...] Standards of Medical Care in Diabetes 2016, [place] Diabetes Association. Diabetes Care. 2016.39(Suppl 1).Performed By: #### 53734- 9, 54300-4, 2142-12, 1987-11 ####[facility] LABCLIA [id number] [place] [address] [place] Phosphate [Mass/Vol]4.6 mg/dLNormal2.7-4.8CM[facility] on above:Order Comment: Specimen Type: BLOOD SPECIMENOrdering Facility: [facility] Address:[address] [place], [place] [address]Performed By: #### 04141-7, 35101-2, 2142-12, 1987-11 ####[facility] LABCLIA [id number] [place] [id number] [place] Potassium [Moles/Vol]4.3 mmol/LNormal3.7-5.1CM[facility] on above:Order Comment: Specimen Type: BLOOD SPECIMENOrdering Facility: [facility] Address:[address] [place], [place] [address]Performed By: #### 82588-6, 68612-4, 2142-12, 1987-11 ####[facility] LABCLIA [id number] [place] [address] [place] Sodium [Moles/Vol]138 mmol/VZmdrfz608-443MnolrszigTriHealth [facility]hes[facility] Hospital on above:Order Comment: Specimen Type: BLOOD SPECIMENOrdering Facility: [facility] Address:[address] [place], [place] [address]Performed By: #### 62365-8, 55879-4, 2142-12, 1987-11 ####[facility] LABCLIA [id number] [place] [id number] [place] Urea nitrogen [Mass/Vol]15 mg/dLNormal7-21[facility] on above:Order Comment: Specimen Type: BLOOD SPECIMENOrdering Facility: [facility] Address:[address] [place], [place] [address]Performed By: #### 56376-8, 06859-0, 2142-12, 1987-11 ####[facility] LABCLIA [id number] [place] [address] [place] CBC panel Auto (Bld)on 59-04-3153Qadrxxzjfbs distribution width (RBC) [Ratio] 15.2 %High11.5-15.0[facility] on above:Order Comment: Specimen Type: BLOOD SPECIMENOrdering Facility: [facility] Address:[address] [place], [place] [address]Performed By: #### 06408-3 ####[facility] LABCLIA [id number] [address] STREETHematocrit (Bld) [Volume fraction]33.5 %Low36.0-46.0[facility] on above:Order Comment: Specimen Type: BLOOD SPECIMENOrdering Facility: [facility] Address:[address] [place], [place] [address]Performed By: #### 21974- 2 ####[facility] LABIA [id number] [address] GOOD[address] STREETHemoglobin (Bld) [Mass/Vol]11.0 g/dLLow11.5-15.5CMari[facility] on above:Order Comment: Specimen Type: BLOOD SPECIMENOrdering Facility: [facility] Address:[address] [place], [place] [address]Performed By: #### 29234-2 ####[facility] LABCLIA [id number] [address] GOOD[address] STREETMCH (RBC) [Entitic mass]28.1 pg Ttefaa16.0-34.0[facility] on above:Order Comment: Specimen Type: BLOOD SPECIMENOrdering Facility: [facility] Address:[address] [place], [place] [address]Performed By: #### 49854-4 ####[facility] LABCLIA [id number] [address]ETMCHC (RBC) [Mass/Vol]32.8 g/dL Ncaemw21.5-36.0[facility] on above:Order Comment: Specimen Type: BLOOD SPECIMENOrdering Facility: [facility] Address:[address] [place], [place] [address]Performed By: #### 20239-3 ####[facility] LABIA [id number] [place] [address] [place] AMERICAMCV (RBC) [Entitic vol]85.7 fL Owmztp04.0-100.0[facility] on above:Order Comment: Specimen Type: BLOOD SPECIMENOrdering Facility: [facility] Address:[address] [place], [place] [address]Performed By: #### 08412-4 ####[facility] LABIA [id number] [place] [address] [place] AMERICANucleated RBC (Bld) [#/Vol] 10*3/uLNormal<0.01[facility] on above:Order Comment: Specimen Type: BLOOD SPECIMENOrdering Facility: [facility] Address:[address] [place], [place] [address]Performed By: #### 00695-8 ####[facility]ITALIA [id number] [place] [address] [place] AMERICAPlatelet mean volume (Bld) [Entitic vol]11.0 fLNormal9.0-12.7CMari[facility] on above: Order Comment: Specimen Type: BLOOD SPECIMENOrdering Facility: [facility] Address:[address] [place], [place] [address]Performed By: #### 79335- 2 ####[facility] LABIA [id number] [place] [address] [place] AMERICAPlatelets (Bld) [#/Vol]218 10*3/yGQnrtat157-854MrzjnwcibTriHealth [facility] on above:Order Comment: Specimen Type: BLOOD SPECIMENOrdering Facility: [facility] Address:[address] [place], [place] [address]Performed By: #### 60673-7 ####[facility] LABCLIA [id number] [address] STATES OF AMERICARBC (Bld) [#/Vol]3.91 10*6/uL Normal3.90-5.20[facility] on above:Order Comment: Specimen Type: BLOOD SPECIMENOrdering Facility: [facility] Address:[address] [place], [place] [address]Performed By: #### 83471-4 ####[facility] LABCLIA [id number] [address] AMERICAWBC (Bld) [#/Vol]5.37 10*3/uL Normal3.70-11.00[facility] on above:Order Comment: Specimen Type: BLOOD SPECIMENOrdering Facility: [facility] Address:[address] [place], [place] [address]Performed By: #### 53090-4 ####[facility] LABCLIA [id number] [address] STATES OF AMERICACONSULTon 72-67-0788AFNJEKCWwjynz [facility] HospitalCONSULT PROGon 22-74-0695LBSORFR PROGNormalDunlap Memorial HospitalCONLT PROGNormalDunlap Memorial HospitalMagnesium SerPl-mCnc on 57-51-0156Crjulwyre [Mass/Vol]2.2 mg/dLNormal1.7-2.3CM[facility] on above:Order Comment: Specimen Type: BLOOD SPECIMENOrdering Facility: [facility] Address:[address] [place], [place] [address]Performed By: #### 42397-7, 37131-5 ####[facility] LABCLIA [id number] [place] [id number] [place] AMERICARenal function 2000 panelon 55-96-4696Gxjkftl [Mass/Vol]3.3 g/dLLow 3.9-4.9CM[facility] on above:Order Comment: Specimen Type: BLOOD SPECIMENOrdering Facility: [facility] Address:[address] [place], [place] [address]Performed By: #### 89544-9, 67266-3 ####[facility] LABCLIA [id number] [place] [address] [place] AMERICAAnion gap [Moles/Vol]11 mmol/LNormal8-15[facility] on above:Order Comment: Specimen Type: BLOOD SPECIMENOrdering Facility: [facility] Address:[address] [place], [place] [address]Performed By: #### 17414-1, 91200-6 ####[facility] LABCLIA [id number] [place] [address] [place]ICACalcium [Mass/Vol]9.0 mg/dLNormal8.5-10.2CM[facility] on above:Order Comment: Specimen Type: BLOOD SPECIMENOrdering Facility: [facility] Address:[address] [place], [place] [address]Performed By: #### 59527-9, 76274-5 ####[facility] LABCLIA [id number] [place] [address] [place] AMERICAChloride [Moles/Vol]103 mmol/YGfaslo18-818FlvrvywrlDunlap Memorial Hospital Comment on above:Order Comment: Specimen Type: BLOOD SPECIMENOrdering Facility: [facility] Address:[address] [place], [place] [address] Performed By: #### 85163-0, 81838-2 ####[facility] LABCLIA [id number] [place] [id number] [place] CO2 [Moles/Vol]27 mmol/PUsiohe39-51VpbcvsrryTriHealth [facility] on above: Order Comment: Specimen Type: BLOOD SPECIMENOrdering Facility: [facility] Address:[address] [place], [place] [address]Performed By: #### 37637- 9, 31965-2 ####[facility] LABIA [id number] ELAINELID A [place] [place] [address] [place] AMERICACreatinine [Mass/Vol] 0.58 mg/dLNormal0.58-0.96[facility] Memorial HospitalComment on above:Order Comment: Specimen Type: BLOOD SPECIMENOrdering Facility: [facility] Address:[address] [place], [place] [address]Performed By: #### 22613- 9, 10301-7 ####[facility] LABIA [id number] [facility] HOSPITALHaleigh A [place] [place] [address] [place]ACreatinine and Glomerular filtration rate.predicted panel (S/P/Bld)120 mL/min/1.73m???Normal >=60[facility] on above:Order Comment: Specimen Type: BLOOD SPECIMENOrdering Facility: [facility] Address:[address] [place], [place] [address]Result Comment: Estimated Glomerular Filtration Rate (eGFR) is calculated using the 2020 CKD-EPI creatinine equation. This equation utilizes serum creatinine, sex, and age as parameters. The creatinine assay has traceable calibration to isotope dilution-mass spectrometry. Refer to KDIGO guidelines for clinical interpretation. In patients with unstable renal function, e.g. those with acute kidney injury, the eGFR may not accurately reflect actual GFR.Performed By: #### 26759-6, 51852-2 ####[facility] LABIA [id number] [place] [address] [place] AMERICAGlucose [Mass/Vol]83 mg/wAJtagrf98-59DvbuawucnDunlap Memorial Hospital Comment on above:Order Comment: Specimen Type: BLOOD SPECIMENOrdering Facility: [facility] Address:[address] [place], [place] [address]Result Comment: The [place] Diabetes Association (ADA) provides guidance for cutoff [...] Standards of Medical Care in Diabetes 2016, [place] Diabetes Association. Diabetes Care. 2016.39(Suppl 1).Performed By: #### 39189-4, 15267-7 ####[facility] LABCLIA [id number] [place] [address] [place] AMERICAPhosphate [Mass/Vol]5.1 mg/dLHigh2.7-4.8CSuburban Community Hospital & Brentwood Hospitalment on above:Order Comment: Specimen Type: BLOOD SPECIMENOrdering Facility: [facility] Address:[address] [place], [place] [address]Performed By: #### 55555-9, 88670-6 ####[facility] LABIA [id number] [place] [address] [place] AMERICAPotassium [Moles/Vol]4.1 mmol/LNormal3.7-5.1CUniversity Hospitals Health System Comment on above:Order Comment: Specimen Type: BLOOD SPECIMENOrdering Facility: [facility] Address:[address] [place] [address] Performed By: #### 30681-8, 47129-4 ####[facility] LABCLIA [id number] [place] [address] [place] Sodium [Moles/Vol]141 mmol/WRodnsk431-873QpyjctuidTriHealth [facility] on above:Order Comment: Specimen Type: BLOOD SPECIMENOrdering Facility: [facility] Address:[address] [place], [place] [address]Performed By: #### 72169-6, 59656-1 ####[facility] LABCLIA [id number] [place] [address] [place] AMERICAUrea nitrogen [Mass/Vol]12 mg/dLNormal7-21[facility] Memorial HospitalComtrinity health [facility] on above:Order Comment: Specimen Type: BLOOD SPECIMENOrdering Facility: [facility] Address:[address] [place], [place] [address]Performed By: #### 45443- 9, 25485-3 ####[facility] LABCLIA [id number] [place] [address] OF [facility] HOSPITALCBC panel Auto (Bld)on 35-51-8790Wbbvkqvusoo distribution width (RBC) [Ratio]15.3 %High11.5-15.0 [facility] HospitalComment on above:Order Comment: Specimen Type: BLOOD SPECIMENOrdering Facility: [facility] Address:[address] [place], [place] [address]Performed By: #### 65660-4 ####[facility] LABIA [id number] [address] STATES OF [facility] GENERAL HOSPITALHematocrit (Bld) [Volume fraction]34.4 %Low36.0-46.0[facility] HospitalComtrinity health livingston hospital on above:Order Comment: Specimen Type: BLOOD SPECIMENOrdering Facility: [facility] Address:[address] [place], [place] [address]Performed By: #### 76590-4 ####[facility] LABIA [id number] [place] [address] [place] Hemoglobin (Bld) [Mass/Vol]11.1 g/dLLow11.5-15.5CUniversity Hospitals Health System Comment on above:Order Comment: Specimen Type: BLOOD SPECIMENOrdering Facility: [facility] Address:[address] [place] [address] Performed By: #### 26960-2 ####[facility] LABIA [id number] [place] [address] [place] MCH (RBC) [Entitic mass]27.8 ptQqkmtk54.0-34.0[facility] on above:Order Comment: Specimen Type: BLOOD SPECIMENOrdering Facility: [facility] Address:[address] [place] [address] Performed By: #### 10427-6 ####[facility] LABCLIA [id number] [place] [address] [place] MCHC (RBC) [Mass/Vol]32.3 g/qFWwsbaf01.5-36.0[facility] on above:Order Comment: Specimen Type: BLOOD SPECIMENOrdering Facility: [facility] Address:[address] [place] [address] Performed By: #### 82325-6 ####[facility] LABIA [id number] [place] [address] [place] MCV (RBC) [Entitic vol]86.0 iURfpdve48.0-100.0[facility] on above:Order Comment: Specimen Type: BLOOD SPECIMENOrdering Facility: [facility] Address:[address] [place] [address] Performed By: #### 28972-0 ####[facility] LABIA [id number] [place] [address] [place] Nucleated RBC (Bld) [#/Vol]10*3/uLNormal<0.01[facility] on above:Order Comment: Specimen Type: BLOOD SPECIMENOrdering Facility: [facility] Address:[address] [place] [address] Performed By: #### 18978-0 ####[facility] LABIA [id number] [place] [address] [place] Platelet mean volume (Bld) [Entitic vol]10.5 fLNormal9.0-12.7CMari[facility] on above:Order Comment: Specimen Type: BLOOD SPECIMENOrdering Facility: [facility] Address:[address] [place], [place] [address]Performed By: #### 97313-1 ####[facility] LABCLIA [id number] [place] [address] [place] Platelets (Bld) [#/Vol]232 10*3/cHKrbxan439-784OfmmhpifuTriHealth [facility] on above:Order Comment: Specimen Type: BLOOD SPECIMENOrdering Facility: [facility] Address:[address] [place] [address] Performed By: #### 72234-9 ####[facility] LABIA [id number] [address] [place] RBC (Bld) [#/Vol]4.00 10*6/uLNormal3.90-5.20[facility] on above:Order Comment: Specimen Type: BLOOD SPECIMENOrdering Facility: [facility] Address:[address] [place], [place] [address]Performed By: #### 69139-7 ####[facility] LABIA [id number] [address] STATES OF AMERICAWBC (Bld) [#/Vol]6.53 10*3/uLNormal3.70-11.00[facility] on above:Order Comment: Specimen Type: BLOOD SPECIMENOrdering Facility: [facility] Address:[address] [place], [place] [address]Performed By: #### 37148-7 ####[facility] LABIA [id number] [place] [address] [place] AMERICACONSULTon 73-95-1041DAEAEDUPafoqx [facility] HospitalCONSULT PROGon 13-09-6487OEKCRVV PROGNormalDunlap Memorial HospitalMagnesium SerPl-mCncon 82-68-6849Pppfkkknw [Mass/Vol]1.8 mg/dL Normal1.7-2.3CMarietta [facility] Hospital on above:Order Comment: Specimen Type: BLOOD SPECIMENOrdering Facility: [facility] Address:[address] [place], [place] [address]Performed By: #### 71222-3, 11448-9, 8 ####[facility] LABCLIA [id number] [address] [place] AMERICARenal function 2000 panelon 75-17-8422Jqcpfgt [Mass/Vol]3.3 g/dLLow3.9-4.9CUniversity Hospitals Health SystemComment on above:Order Comment: Specimen Type: BLOOD SPECIMENOrdering Facility: [facility] Address:[address] [place] [address] Performed By: #### 00971-6, 03507-3, 8 ####[facility] LABCLIA [id number] [address] [place] AMERICAAnion gap [Moles/Vol]10 mmol/LNormal8-15[facility] HospitalComment on above:Order Comment: Specimen Type: BLOOD SPECIMENOrdering Facility: [facility] Address:[address] [place] [address] Performed By: #### 31277-1, 90952-6, 8 ####[facility] LABCLIA [id number] [address] [place] AMERICACalcium [Mass/Vol]9.1 mg/dLNormal8.5-10.2CUniversity [facility] Comment on above:Order Comment: Specimen Type: BLOOD SPECIMENOrdering Facility: [facility] Address:[address] [place] [address] Performed By: #### 38282-5, 86718-4, 8 ####[facility] LABCLIA [id number] [address] [address] [place] OF AMERICAChloride [Moles/Vol]107 mmol/ECbkxwr43-341FcdobvudxDunlap Memorial Hospital Comment on above:Order Comment: Specimen Type: BLOOD SPECIMENOrdering Facility: [facility] Address:[address] [place] [address] Performed By: #### 94835-2, 96276-6, 257-8 ####[facility] LABCLIA [id number] [place] [id number] [place] AMERICACO2 [Moles/Vol]27 mmol/UYzgzia48-36UxbsxuuxeTriHealth [facility] on above:Order Comment: Specimen Type: BLOOD SPECIMENOrdering Facility: [facility] Address:[address] [place], [place] [address]Performed By: #### 54061-5, 18214-8, 257-8 ####[facility] LABIA [id number], [place] [address] [place] Creatinine [Mass/Vol]0.59 mg/dLNormal0.58-0.96[facility] on above:Order Comment: Specimen Type: BLOOD SPECIMENOrdering Facility: [facility] Address:[address] [place] [address] Performed By: #### 53171-6, 51731-3, 8 ####[facility] LABIA [id number][place] [address] [place] [facility] HOSPITALCreatinine and Glomerular filtration rate.predicted panel (S/P/Bld)120 mL/min/1.73m???Normal>=60[facility] on above:Order Comment: Specimen Type: BLOOD SPECIMENOrdering Facility: [facility] Address:[address] [place], [place] [address]Result Comment: Estimated Glomerular Filtration Rate (eGFR) is [...] not accurately reflect actual GFR.Performed By: #### 71682-3, 30646-5, 257-8 ####[facility] [id number] [address] [place] OF AMERICAGlucose [Mass/Vol]74 mg/dLNormal 74-99[facility] on above:Order Comment: Specimen Type: BLOOD SPECIMENOrdering Facility: [facility] Address:[address] [place], [place] [address]Result Comment: The [place] Diabetes Association (ADA) provides guidance for cutoff [...] Standards of Medical Care in Diabetes 2016, [place] Diabetes Association. Diabetes Care. 2016.39(Suppl 1).Performed By: #### 22154- 9, 71898-3, 2571-8 ####[facility] [id number] VIL[place] [address] [place] AMERICAPhosphate [Mass/Vol] 3.5 mg/dLNormal2.7-4.8CMarietta Memorial Hospital on above:Order Comment: Specimen Type: BLOOD SPECIMENOrdering Facility: [facility] Address:[address] [place], [place] [address]Performed By: #### 54707-1, 24017-4, 2571-8 ####[facility] LABBRATT[facility] [id number] VILLE [address] [place] AMERICAPotassium [Moles/Vol]3.7 mmol/L Normal3.7-5.1ClevelSycamore Medical Center on above:Order Comment: Specimen Type: BLOOD SPECIMENOrdering Facility: [facility] Address:[address] [place], [place] [address]Performed By: #### 06363-1, 19279-6, 257-8 ####[facility] LABCLIA [id number] [place] [address] [facility] CENTERSodium [Moles/Vol]144 mmol/L Aznmpu388-668PihdablnqTri[facility] on above:Order Comment: Specimen Type: BLOOD SPECIMENOrdering Facility: [facility] Address:[address] [place], [place] [address]Performed By: #### 93312-3, 53687-4, 8 ####[facility] [id number] [place] [address] [place] AMERICAUrea nitrogen [Mass/Vol]5 mg/dL Low7-21[facility] on above:Order Comment: Specimen Type: BLOOD SPECIMENOrdering Facility: [facility] Address:[address] [place], [place] [address]Performed By: #### 44850-0, 19642-4, 8 ####[facility] [id number] [address] [place] AMERICATrigl SerPl-mCncon 08-01-2024 Triglyceride [Mass/Vol]148 mg/dLNormal<150[facility] on above:Order Comment: Specimen Type: BLOOD SPECIMENOrdering Facility: [facility] Address:[address] [place], [place] [address]Result Comment: <150 mg/dL, Normal 150-199 mg/dL, Borderline high 200-499 mg/dL, High>499 mg/dL, Very highReference:1. National Cholesterol Education Program ATP III Guideline At-A-Glance QuickDesk Reference: National Heart, Lung, and Blood [place]. National Institutes of Health. 2001: NIHPublication No. 01-3305.Performed By: #### 81725-3, 35934-3, 257-8 ####[facility] [id number] [place] [address] [place] Triglyceride [Mass/Vol]on 47-92-8379YICGSXB TIME0 hrsNoUniversity Hospitals [facility] on above:Order Comment: Specimen Type: BLOOD SPECIMENOrdering Facility: [facility] Address:[address] [place], [place] [address]Result Comment: NPO, receiving TPN since 2129Performed By: #### 51126-5, 05845-1, 2571-8 ####[facility] LABCLIA [id number] [place] [address] [place] [facility] HOSPITALC diff Tox gens Stl Ql CARLOTTA+probeon 07-31-2024. difficile toxin genes CARLOTTA+probe Ql (Stl)NegativeNormal Negative for C. difficile toxin by PCRTriHealth Bethesda North Hospital on above:Order Comment: Specimen Type: STOOL SPECIMENOrdering Facility: [facility] Address:[address] [place], [place] [address]Performed By: #### 89620-8 ####[facility] [id number] [place] [address] [place] OF AMERICACASE MGT INIT ASSon 15-64-6053DAGD MGT INIT [facility] CampusCB panel Auto (Bld)on 30-82-0043Ixnuwlhldbv distribution width (RBC) [Ratio]15.5 %High 11.5-15.0[facility] on above:Order Comment: Specimen Type: BLOOD SPECIMENOrdering Facility: [facility] Address:[address] [place], [place] [address]Performed By: #### 16878-9 ####[facility] [id number] [place] [address] [place] [facility] HOSPITALHematocrit (Bld) [Volume fraction]34.1 %Low36.0-46.0 [facility] on above:Order Comment: Specimen Type: BLOOD SPECIMENOrdering Facility: [facility] Address:[address] [place], [place] [address]Performed By: #### 16865-0 ####[facility] [id number] [place] [address] [place] [facility] HOSPITALHemoglobin (Bld) [Mass/Vol]10.9 g/dLLow11.5-15.5CMarietta [facility] Hospital on above:Order Comment: Specimen Type: BLOOD SPECIMENOrdering Facility: [facility] Address:[address] [place], [place] [address]Performed By: #### 89282-0 ####[facility] [id number] [place] [address] [place] MCH (RBC) [Entitic mass]28.2 kpUtqqoe16.0-34.0[facility] on above:Order Comment: Specimen Type: BLOOD SPECIMENOrdering Facility: [facility] Address:[address] [place] [address] Performed By: #### 37859-3 ####[facility] [id number] [place] [address] [place] MCHC (RBC) [Mass/Vol]32.0 g/gAIzjqbi02.5-36.0[facility] on above:Order Comment: Specimen Type: BLOOD SPECIMENOrdering Facility: [facility] Address:[address] [place] [address] Performed By: #### 54896-2 ####[facility] [id number] [place] [address] [place] MCV (RBC) [Entitic vol]88.3 dUGporip39.0-100.0[facility] on above:Order Comment: Specimen Type: BLOOD SPECIMENOrdering Facility: [facility] Address:[address] [place] [address] Performed By: #### 35407-8 ####[facility] [id number] [place] [address] [place] Nucleated RBC (Bld) [#/Vol]10*3/uLNormal<0.01[facility] on above:Order Comment: Specimen Type: BLOOD SPECIMENOrdering Facility: [facility] Address:[address] [place] [address] Performed By: #### 18655-9 ####[facility] [id number] [place] [address] [place] Platelet mean volume (Bld) [Entitic vol]11.6 fLNormal9.0-12.7CMarietta Memorial Hospital on above:Order Comment: Specimen Type: BLOOD SPECIMENOrdering Facility: [facility] Address:[address] [place], [place] [address]Performed By: #### 73337-7 ####[facility] [id number] [place] [address] [place] Platelets (Bld) [#/Vol]219 10*3/aYBibyii541-262BrgoqcneaTriHealth [facility] on above:Order Comment: Specimen Type: BLOOD SPECIMENOrdering Facility: [facility] Address:[address] [place] [address] Performed By: #### 59732-3 ####[facility] [id number] [place] [address] [place] RBC (Bld) [#/Vol]3.86 10*6/uLLow3.90-5.20[facility] on above:Order Comment: Specimen Type: BLOOD SPECIMENOrdering Facility: [facility] Address:[address] [place], [place] [address]Performed By: #### 14583-4 ####[facility] [id number] [place] [address] [place] AMERICAWBC (Bld) [#/Vol]6.31 10*3/uLNormal3.70-11.00[facility] on above:Order Comment: Specimen Type: BLOOD SPECIMENOrdering Facility: [facility] Address:[address] [place], [place] [address]Performed By: #### 85798-5 ####[facility] LABCLIA [id number] [place] [address] [place] AMERICACONSULTon 92-19-4476HVBJBQFIroali [facility]lap Memorial HospitalCONSULT PROGon 69-70-5591PVOCLEN PROGNormalDunlap Memorial HospitalCRP SerPl-mCncon 33-19-1352KTG [Mass/Vol]0.4 mg/dLNormal<0.9 [facility] on above:Order Comment: Specimen Type: BLOOD SPECIMENOrdering Facility: [facility] Address:[address] [place], [place] [address]Performed By: #### 80239-3, 51502-5, 1987-5, 69240-9, 14624- 8, 2571-8 ####[facility] LABCLIA [id number] [place] [id number] [place] AMERICACalprotectin (Stl) [Mass/Mass]on 94-82-4735HIYGJTAEMTRK, FECAL INTERPElevatedAbnormalNormal [facility] on above:Order Comment: Specimen Type: STOOL SPECIMENOrdering Facility: [facility] Address:[address] [place], [place] [address]Result Comment: Interpretation:<50.0 ug/g: Ibcrxe81.0 ug/g - 120.0 ug/g: Borderline elevated. Re-evaluation in 4-6 weeks is recommended if clinically indicated.>120.0 ug/g: ElevatedPerformed By: #### 27833-4 ####[facility] LABCLIA [id number] [place] [id number] [place] AMERICACALPROTECTIN, FECAL QUANTITATIVE 464 ug/gHigh<50[facility] on above:Order Comment: Specimen Type: STOOL SPECIMENOrdering Facility: [facility] Address:[address] [place], [place] [address]Performed By: #### 16595-7 ####[facility] LABCLIA [id number] [place] [address] [place] AMERICAGastrointestinal pathogens identified CARLOTTA+probe Nom (Stl)on 65-43-8459Pozdbvizxdqpx sp DNA CARLOTTA+probe Nom (Unsp spec)Not detectedNormalNot DetectedTriHealth [facility] on above:Order Comment: Specimen Type: STOOL SPECIMENOrdering Facility: [facility] Address:[address] [place], [place] [address]Performed By: #### 70569-0 ####[facility] LABCLIA [id number] [place] [address] [place] AMERICASalmonella sp DNA CARLOTTA+probe Ql (Unsp spec)Not detectedNormalNot DetectedDunlap Memorial Hospital Comment on above:Order Comment: Specimen Type: STOOL SPECIMENOrdering Facility: [facility] Address:[address] [place] [address] Performed By: #### 83634-6 ####[facility] LABCLIA [id number] [place] [address] [place] Shiga toxin stx gene CARLOTTA+probe Nom (Unsp spec)Not detectedNormalNot Detected [facility] on above:Order Comment: Specimen Type: STOOL SPECIMENOrdering Facility: [facility] Address:[address] [place], [place] [address]Performed By: #### 97799-6 ####[facility] LABCLIA [id number] [place] [address] [place] AMERICAShigella sp DNA CARLOTTA+probe Ql (Unsp spec)Not detectedNormalNot Detected [facility] on above:Order Comment: Specimen Type: STOOL SPECIMENOrdering Facility: [facility] Address:[address] [place], [place] [address]Performed By: #### 83880-1 ####[facility] LABCLIA [id number] [address] [address] [place] OF AMERICAHISTORY PHYSICALon 95-72-0611NMLCQZT PHYSICALNormalCUniversity Hospitals Health SystemHepatic function 2000 panelon 45-56-9988VHT [Catalytic activity/Vol]89 U/FEnuiew63-456ItkgmyzpgTriHealth [facility] on above:Order Comment: Specimen Type: BLOOD SPECIMENOrdering Facility: [facility] Address:[address] [place], [place] [address]Performed By: #### 56420-4, 08811-1, 1987-11, 29192-5, 78145-0, 8 ####[facility] LABCLIA [id number] [place] [id number] [place] ALT [Catalytic activity/Vol]34 U/LNormal7-38[facility] on above:Order Comment: Specimen Type: BLOOD SPECIMENOrdering Facility: [facility] Address:[address] [place], [place] [address]Performed By: #### 56613-3, 27135-8, 1987-11, 38973-1, 42284-4, 8 ####[facility] [id number] [place] [address] [place] AMERICAAST [Catalytic activity/Vol]57 U/WNzqv66-96AfqfelbkbTriHealth [facility] on above:Order Comment: Specimen Type: BLOOD SPECIMENOrdering Facility: [facility] Address:[address] [place], [place] [address]Performed By: #### 54508-2, 95169-8, 1987-11, 60526-0, 37176-5, 8 ####[facility] LABCLIA [id number] [place] [id number] [place] AMERICABilirubin [Mass/Vol]0.3 mg/dL Normal0.2-1.3[facility] ClevelandComment on above:Order Comment: Specimen Type: BLOOD SPECIMENOrdering Facility: [facility] Address:[address] [place], [place] [address]Performed By: #### 68369-4, 90540-8, 1987-11, 50076-8, 92503-7, 2578 ####[facility] LABCLIA [id number] [place] [address] [place] Bilirubin.conjugated [Mass/Vol]0.1 mg/dLNormal<0.3CUniversity Hospitals Health System Comment on above:Order Comment: Specimen Type: BLOOD SPECIMENOrdering Facility: [facility] Address:[address] [place] [address] Performed By: #### 41881-1, 38152-3, 1987-11, 26806-8, 43031-9, 2578 ####[facility] LABCLIA [id number] [place] [address] [place] AMERICAProtein [Mass/Vol]6.2 g/dLLow 6.3-8.0[facility] Memorial HospitalComtrinity health [facility] on above:Order Comment: Specimen Type: BLOOD SPECIMENOrdering Facility: [facility] Address:[address] [place], [place] [address]Performed By: #### 87720-1, 89869-0, 1987-11, 19936-9, 47242-8, 2578 ####[facility] LABCLIA [id number] [place] [address] [place] AMERICAMagnesium SerPl-mCncon 70-62-5877Xdwvcgmtn [Mass/Vol]1.7 mg/dLNormal1.7-2.3CUniversity Hospitals Health System Comment on above:Order Comment: Specimen Type: BLOOD SPECIMENOrdering Facility: [facility] Address:[address] [place] [address] Performed By: #### 73900-8, 03929-8, 1987-11, 04792-8, 03488-1, 257-8 ####[facility] LABCLIA [id number] [place] [address] [place] AMERICAProcalcitonin SerPl-mCncon 61-80-4531Qdlisvpurcnpn [Mass/Vol]ng/mLNormal<0.09[facility] Comment on above:Order Comment: Specimen Type: BLOOD SPECIMENOrdering Facility: [facility] Address:[address] [place], [place] [address]Result Comment: For a guided interpretation of test results, please visit the Change in Procalcitonin Calculator, [email or web address].Performed By: #### 49290-3, 77411-3, 1987-11, 27010-5, 62412-9, 257-8 ####[facility] LABCLIA [id number] [address] OF AMERICARenal Func 2000 Pnl SerPlon 63-09-6280Ubjrkek [Mass/Vol]3.3 g/dLLow3.9-4.9CUniversity Hospitals Health SystemComment on above:Order Comment: Specimen Type: BLOOD SPECIMENOrdering Facility: [facility] Address:[address] [place], [place] [address]Performed By: #### 00837-4, 85134-0, 1987-11, 12026-6, 49815-9, 2571-8 ####[facility] [id number] [address] STATES OF AMERICARenal function 2000 panelon 11-04-8741Gmyen gap [Moles/Vol]12 mmol/LNormal8-15[facility] HospitalComtrinity health livingston hospital on above:Order Comment: Specimen Type: BLOOD SPECIMENOrdering Facility: [facility] Address:[address] [place], [place] [address]Performed By: #### 21143-1, 48674-1, 1987-11, 30450-6, 76152-5, 2571-8 ####[facility] [id number] [place] [id number] [place] AMERICACalcium [Mass/Vol]8.6 mg/dLNormal 8.5-10.2CMarietta Memorial Hospital on above:Order Comment: Specimen Type: BLOOD SPECIMENOrdering Facility: [facility] Address:[address] [place], [place] [address]Performed By: #### 67798-1, 97942-7, 1987-11, 53426-6, 52807-6, 2578 ####[facility] LABCLIA [id number] [place] [address] [place] AMERICAChloride [Moles/Vol]106 mmol/HKulamu55-063UndoefvptTriHealth [facility] on above: Order Comment: Specimen Type: BLOOD SPECIMENOrdering Facility: [facility] Address:[address] [place], [place] [address]Performed By: #### 79772- 9, 25097-5, 1987-11, 71456-4, 18197-2, 2571-02 ####[facility] [id number] [place] [address] [place] AMERICACO2 [Moles/Vol]22 mmol/DWgngmg89-32EhnglbmbiTriHealth [facility] on above:Order Comment: Specimen Type: BLOOD SPECIMENOrdering Facility: [facility] Address:[address] [place], [place] [address]Performed By: #### 94731-2, 07306-3, 1987-11, 85453-3, 54402-8, 2571-02 ####[facility] [id number] [place] [id number] [place] AMERICACreatinine [Mass/Vol]0.65 mg/dLNormal0.58-0.96[facility] on above:Order Comment: Specimen Type: BLOOD SPECIMENOrdering Facility: [facility] Address:[address] [place], [place] [address]Performed By: #### 50854-7, 94112-8, 1987-11, 12482-4, 38948-8, 257-8 ####[facility] [id number] [address] [address] [place] AMERICACreatinine and Glomerular filtration rate.predicted panel (S/P/Bld)117 mL/min/1.73m???Normal>=60[facility] on above:Order Comment: Specimen Type: BLOOD SPECIMENOrdering Facility: [facility] Address:[address] [place], [place] [address]Result Comment: Estimated Glomerular Filtration Rate (eGFR) is calculated using the 2020 CKD-EPI creatinine equation. This equation utilizes serum creatinine, sex, and age as parameters. The creatinine assay has traceable calibration to isotope dilution-mass spectrometry. Refer to KDIGO guidelines for clinical interpretation. In patients with unstable renal function, e.g. those with acute kidney injury, the eGFR may not accurately reflect actual GFR.Performed By: #### 71328-7, 42153-1, 1987-11, 03318-4, 99732- 8, 257-8 ####[facility] [id number] [address] [address] [place] AMERICAGlucose [Mass/Vol]90 mg/iAPiybwc20-13IaqqzgouzTriHealth Bethesda [facility] on above:Order Comment: Specimen Type: BLOOD SPECIMENOrdering Facility: [facility] Address:[address] [place] [address]Kyecfp Comment: The [place] Diabetes Association (ADA) provides guidance for cutoff [...] Standards of Medical Care in Diabetes 2016, [place] Diabetes Association. Diabetes Care. 2016.39(Suppl 1). Performed By: #### 45055-6, 06096-4, 1987-11, 89249-4, 14369-7, 2570-8 ####[facility] LABCLIA [id number] [address] [address] [place] AMERICAPhosphate [Mass/Vol]3.6 mg/dL Normal2.7-4.8CMarietta Memorial Hospital on above:Order Comment: Specimen Type: BLOOD SPECIMENOrdering Facility: [facility] Address:[address] [place], [place] [address]Performed By: #### 05091-7, 34410-3, 1987-11, 61377-2, 28470-8, 8 ####[facility] LABCLIA [id number] [place] [address] [place] AMERICAPotassium [Moles/Vol]4.1 mmol/LNormal3.7-5.1CMarietta Memorial Hospital on above: Order Comment: Specimen Type: BLOOD SPECIMENOrdering Facility: [facility] Address:[address] [place], [place] [address]Performed By: #### 48376- 9, 37435-2, 1987-11, 32911-9, 71980-4, 2571-02 ####[facility] [id number] [place] [address] [place] AMERICASodium [Moles/Vol]140 mmol/QXiidkf342-623GyfladhkjDunlap Memorial Hospital Comment on above:Order Comment: Specimen Type: BLOOD SPECIMENOrdering Facility: [facility] Address:[address] [place] [address] Performed By: #### 02293-1, 85645-2, 1987-11, 46250-2, 54979-7, 2570-8 ####[facility] LABCLIA [id number] [place] [id number] [place] AMERICAUrea nitrogen [Mass/Vol]4 mg/dL Low7-21[facility] on above:Order Comment: Specimen Type: BLOOD SPECIMENOrdering Facility: [facility] Address:[address] [place], [place] [address]Performed By: #### 09862-0, 03925-9, 1987-11, 58128-5, 82770-6, 2570-8 ####[facility] LABCLIA [id number] [place] [id number] [place] AMERICATrigl SerPl-mCncon 53-93-2661Hkpgbaqhovls [Mass/Vol]162 mg/dLHigh<150[facility] Comment on above:Order Comment: Specimen Type: BLOOD SPECIMENOrdering Facility: [facility] Address:[address] [place], [place] [address]Result Comment: <150 mg/dL, Normal 150-199 mg/dL, Borderline high 200-499 mg/dL, High>499 mg/dL, Very highReference:1. National Cholesterol Education Program ATP III Guideline At-A-Glance QuickDesk Reference: National Heart, Lung, and Blood [place]. National Institutes of Health. 2001: NIHPublication No. 01-3305. Performed By: #### 79436-0, 34880-8, 1987-11, 43392-2, 07258-9, 2570-8 ####[facility] LABCLIA [id number] [place] [id number] [place] AMERICATriglyceride [Mass/Vol]on 21-30-8468OZSMFPI TIMEunknownNormalDunlap Memorial HospitalComment on above: Order Comment: Specimen Type: BLOOD SPECIMENOrdering Facility: [facility] Address:[address] [place], [place] [address]Performed By: #### 83165- 9, 10732-4, 1987-11, 79104-1, 09952-2, 2570-8 ####[facility] LABCLIA [id number] [place] [id number] [place] AMERICAXR CHEST 1V FRONTAL PORTon 81-06-5346IZ CHEST 1V FRONTAL PORTNormal Dunlap Memorial HospitalBacteria Bld Culton 59-18-3772Dbywmrdn identified Cx Nom (Bld)CULTURE, BLOOD: No growth 5 daysNormalClevelSycamore Medical Center on above:Performed By: #### 600-7 ####[facility] LABCLIA [id number] [place] [address] [place] AMERICABacteria identified Cx Nom (Bld)NormalTriHealth Bethes[facility] on above:Performed By: #### 600-7 ####[facility] LABCLIA [id number] [place] [address] [place] AMERICACB W Auto Differential panel (Bld)on 41-53-9848Ozkjtzukt (Bld) [#/Vol]0.03 10*3/uLNormal<0.11ClevelSycamore Medical Center on above:Order Comment: Specimen Type: BLOOD SPECIMENOrdering Facility: [facility] Address:[address] [place], [place] [address]Performed By: #### 93926-0 ####[facility] LABCLIA [id number] [place] [address] [place] Basophils/100 WBC (Bld)0.4 %NormalTriHealth Bethes[facility] on above: Order Comment: Specimen Type: BLOOD SPECIMENOrdering Facility: [facility] Address:[address] [place], [place] [address]Performed By: #### 84636- 8 ####[facility] LABCLIA [id number] [place] [address] [place] AMERICADifferential cell count method Nom (Bld)AutoNormalClevelSycamore Medical Center on above:Order Comment: Specimen Type: BLOOD SPECIMENOrdering Facility: [facility] Address:[address] [place], [place] [address]Performed By: #### [id number] ####[facility] LABCLIA [id number] [place] [address] [place] AMERICAEosinophils (Bld) [#/Vol]0.19 10*3/uLNormal<0.46[facility] on above:Order Comment: Specimen Type: BLOOD SPECIMENOrdering Facility: [facility] Address:[address] [place], [place] [address]Performed By: #### 88226-2 ####[facility] LABCLIA [id number] [place] [address] [place] AMERICAEosinophils/100 WBC (Bld)2.7 % NormalTriHealth Bethesda North [facility] on above:Order Comment: Specimen Type: BLOOD SPECIMENOrdering Facility: [facility] Address:[address] [place], [place] [address]Performed By: #### 83914-8 ####[facility] LABIA [id number] [place] [address] [place] AMERICAErythrocyte distribution width (RBC) [Ratio]15.2 %High11.5-15.0 [facility] Hospitalment on above:Order Comment: Specimen Type: BLOOD SPECIMENOrdering Facility: [facility] Address:[address] [place], [place] [address]Performed By: #### 39491-4 ####[facility] LABIA [id number] [place] [address] [place] AMERICAHematocrit (Bld) [Volume fraction]34.9 %Low36.0-46.0[facility] on above:Order Comment: Specimen Type: BLOOD SPECIMENOrdering Facility: [facility] Address:[address] [place], [place] [address]Performed By: #### 83892-0 ####[facility] LABIA [id number] [place] [address] [place] Hemoglobin (Bld) [Mass/Vol]11.2 g/dLLow11.5-15.5CUniversity Hospitals Health System Comment on above:Order Comment: Specimen Type: BLOOD SPECIMENOrdering Facility: [facility] Address:[address] [place] [address] Performed By: #### 78886-6 ####[facility] LABCLIA [id number] [place] [address] [place] Immature granulocytes (Bld) [#/Vol]0.04 10*3/uLNormal<0.10Dun[facility] Memorial HospitalComment on above:Order Comment: Specimen Type: BLOOD SPECIMENOrdering Facility: [facility] Address:[address] [place], [place] [address]Performed By: #### 47210-6 ####[facility] LABCLIA [id number] [place] [address] [place] Immature granulocytes/100 WBC (Bld)0.6 %NormalTriHealth Bethesda North Hospital on above:Order Comment: Specimen Type: BLOOD SPECIMENOrdering Facility: [facility] Address:[address] [place] [address] Performed By: #### 17579-0 ####[facility] LABCLIA [id number] [place] [address] [place] Lymphocytes (Bld) [#/Vol]1.11 10*3/uLNormal1.00-4.00[facility] Comment on above:Order Comment: Specimen Type: BLOOD SPECIMENOrdering Facility: [facility] Address:[address] [place] [address] Performed By: #### 65532-3 ####[facility] LABCLIA [id number] [place] [address] [place] Lymphocytes/100 WBC (Bld)15.6 %NormalTriHealth Bethesda North Hospital on above: Order Comment: Specimen Type: BLOOD SPECIMENOrdering Facility: [facility] Address:[address] [place], [place] [address]Performed By: #### 02608- 8 ####[facility] LABCLIA [id number] [address]CL[place] AVENUEDESK [address] (RBC) [Entitic mass]28.3 pg Jmmbau76.0-34.0[facility] on above:Order Comment: Specimen Type: BLOOD SPECIMENOrdering Facility: [facility] Address:[address] [place], [place] [address]Performed By: #### 07211-6 ####[facility] LABIA [id number] [address] (RBC) [Mass/Vol]32.1 g/dL Ckdouc37.5-36.0[facility] on above:Order Comment: Specimen Type: BLOOD SPECIMENOrdering Facility: [facility] Address:[address] [place], [place] [address]Performed By: #### 98726-1 ####[facility] LABIA [id number] [address] (RBC) [Entitic vol]88.1 fL Mhedwh99.0-100.0[facility] on above:Order Comment: Specimen Type: BLOOD SPECIMENOrdering Facility: [facility] Address:[address] [place], [place] [address]Performed By: #### 83082-4 ####[facility] LABIA [id number] [place] [address] [place] AMERICAMonocytes (Bld) [#/Vol]0.40 10*3/uLNormal<0.87[facility] on above:Order Comment: Specimen Type: BLOOD SPECIMENOrdering Facility: [facility] Address:[address] [place], [place] [address]Performed By: #### 59264-4 ####[facility] LABIA [id number] [place] [address] [place] AMERICAMonocytes/100 WBC (Bld)5.6 % NormalTriHealth Bethesda North Hospital on above:Order Comment: Specimen Type: BLOOD SPECIMENOrdering Facility: [facility] Address:[address] [place], [place] [address]Performed By: #### 37824-5 ####[facility] LABCLIA [id number] [place] [address] [place] AMERICANeutrophils (Bld) [#/Vol]5.33 10*3/uLNormal1.45-7.50[facility] on above:Order Comment: Specimen Type: BLOOD SPECIMENOrdering Facility: [facility] Address:[address] [place], [place] [address]Performed By: #### 58028-7 ####[facility] LABCLIA [id number] [place] [address] [place] AMERICANeutrophils/100 WBC (Bld)75.1 %NormalDunlap Memorial HospitalComment on above:Order Comment: Specimen Type: BLOOD SPECIMENOrdering Facility: [facility] Address:[address] [place] [address] Performed By: #### 00231-0 ####[facility] LABCLIA [id number] [place] [address] [place] Nucleated RBC (Bld) [#/Vol]10*3/uLNormal<0.01[facility] Memorial HospitalComtrinity health livingston hospital on above:Order Comment: Specimen Type: BLOOD SPECIMENOrdering Facility: [facility] Address:[address] [place] [address] Performed By: #### 74818-7 ####[facility] LABCLIA [id number] [place] [address] [place] Nucleated RBC/100 WBC (Bld) [Ratio]0.0 /100 WBCNormalCUniversity Hospitals Health System Comment on above:Order Comment: Specimen Type: BLOOD SPECIMENOrdering Facility: [facility] Address:[address] [place] [address] Performed By: #### 58092-7 ####[facility] LABCLIA [id number] [place] [address] [place] Platelet mean volume (Bld) [Entitic vol]10.7 fLNormal9.0-12.7CMarietta Memorial Hospital on above:Order Comment: Specimen Type: BLOOD SPECIMENOrdering Facility: [facility] Address:[address] [place], [place] [address]Performed By: #### 67474-9 ####[facility] LABIA [id number] [place] [address] [place] Platelets (Bld) [#/Vol]194 10*3/qOJqbuhg684-273UassnqxyvTriHealth Bethesda North Hospital on above:Order Comment: Specimen Type: BLOOD SPECIMENOrdering Facility: [facility] Address:[address] [place] [address] Performed By: #### 12620-7 ####[facility] [id number] [place] [address] [place] RBC (Bld) [#/Vol]3.96 10*6/uLNormal3.90-5.20[facility] on above:Order Comment: Specimen Type: BLOOD SPECIMENOrdering Facility: [facility] Address:[address] [place], [place] [address]Performed By: #### 71357-7 ####[facility]PITALIA [id number] [place] [address] [place] AMERICAWBC (Bld) [#/Vol]7.10 10*3/uLNormal3.70-11.00[facility] on above:Order Comment: Specimen Type: BLOOD SPECIMENOrdering Facility: [facility] Address:[address] [place], [place] [address]Performed By: #### 88652-0 ####[facility] LABIA [id number] [place] [address] [place] AMERICACRP SerPl-mCncon 21-90-0838FAZ [Mass/Vol]0.4 mg/dLNormal<0.9CMarietta Memorial Hospital on above:Order Comment: Specimen Type: BLOOD SPECIMENOrdering Facility: [facility] Address:[address] [place], [place] [address]Performed By: #### , , 2776-07, ####[facility] LABCLIA [id number] [address] [address] [place] OF AMERICACT ENTEROGRAPHY W IVCONon 72-13-2723PP ENTEROGRAPHY W IVCONNormalDunlap Memorial HospitalComprehensive metabolic 2000 panelon 23-43-2413Srivogt [Mass/Vol]3.2 g/dLLow3.9-4.9CMarietta Memorial Hospital on above:Order Comment: Specimen Type: BLOOD SPECIMENOrdering Facility: [facility] Address:[address] [place], [place] [address]Performed By: #### 1987-11, , 2776-07, ####[facility] LABCLIA [id number] [address] [address] [place] AMERICAALP [Catalytic activity/Vol]90 U/MYmnbcf10-249XrxprfpioTriHealth Bethesda North Hospital on above:Order Comment: Specimen Type: BLOOD SPECIMENOrdering Facility: [facility] Address:[address] [place], [place] [address]Performed By: #### , , 2776-07, ####[facility] LABCLIA [id number] [address] [place] AMERICAALT [Catalytic activity/Vol]25 U/LNormal7-38[facility] on above:Order Comment: Specimen Type: BLOOD SPECIMENOrdering Facility: [facility] Address:[address] [place], [place] [address]Performed By: #### 1987-11, , 2776-07, ####[facility] LABCLIA [id number] [place] [address] [place] Anion gap [Moles/Vol]12 mmol/LNormal8-15[facility] on above:Order Comment: Specimen Type: BLOOD SPECIMENOrdering Facility: [facility] Address:[address] [place], [place] [address]Performed By: #### 1987-11, , 2776-07, ####[facility] LABCLIA [id number] [place] [address] [place] AST [Catalytic activity/Vol]51 U/YSflv68-73DvlesdlvbTriHealth [facility] on above:Order Comment: Specimen Type: BLOOD SPECIMENOrdering Facility: [facility] Address:[address] [place], [place] [address]Performed By: #### 1987-11, , 2776-07, ####[facility] LABIA [id number] [place] [address] [place] Bilirubin [Mass/Vol]mg/dLLow0.2-1.3CMarietta Memorial Hospital on above: Order Comment: Specimen Type: BLOOD SPECIMENOrdering Facility: [facility] Address:[address] [place], [place] [address]Performed By: #### , , 2776-07, ####[facility] LABCLIA [id number] [place] [id number] [place] AMERICACalcium [Mass/Vol]8.7 mg/dLNormal8.5-10.2CMarietta Memorial Hospital on above: Order Comment: Specimen Type: BLOOD SPECIMENOrdering Facility: [facility] Address:[address] [place], [place] [address]Performed By: #### , , 2776-07, ####[facility] LABCLIA [id number] [place] [address] [place] Chloride [Moles/Vol]106 mmol/YZzwvzt72-957VugpigaunTriHealth Bethesda North Hospital on above:Order Comment: Specimen Type: BLOOD SPECIMENOrdering Facility: [facility] Address:[address] [place], [place] [address]Performed By: #### 1987-11, , 2776-07, ####[facility] [id number] [place] [address] [place] CO2 [Moles/Vol]21 mmol/STit71-57HesrkautrTriHealth Bethesda North Hospital on above:Order Comment: Specimen Type: BLOOD SPECIMENOrdering Facility: [facility] Address:[address] [place], [place] [address]Performed By: #### , , 2776-07, ####[facility] [id number] [place] [id number] [place] Creatinine [Mass/Vol]0.53 mg/dLLow0.58-0.96[facility] on above:Order Comment: Specimen Type: BLOOD SPECIMENOrdering Facility: [facility] Address:[address] [place], [place] [address]Performed By: #### 1987-11, , 2776-07, ####[facility] [id number] [place] [id number] [place] Creatinine and Glomerular filtration rate.predicted panel (S/P/Bld)123 mL/min/1.73m???Normal>=60[facility] on above:Order Comment: Specimen Type: BLOOD SPECIMENOrdering Facility: [facility] Address:[address] [place], [place] [address]Result Comment: Estimated Glomerular Filtration Rate (eGFR) is [...] actual GFR.Performed By: #### 1987-11, , 2776-07, ####[facility] LABCLIA [id number] [address] [address] [place] AMERICAGlucose [Mass/Vol]82 mg/yHQofosq80-95VhamvciusTriHealth Bethesda North Hospital on above:Order Comment: Specimen Type: BLOOD SPECIMENOrdering Facility: [facility] Address:[address] [place], [place] [address]Result Comment: The [place] Diabetes Association (ADA) provides guidance for cutoff [...] Standards of Medical Care in Diabetes 2016, [place] Diabetes Association. Diabetes Care. 2016.39(Suppl 1). Performed By: #### 1987-11, , 2776-07, ####[facility] LABCLIA [id number] [address] [address] [place] AMERICAPotassium [Moles/Vol]4.1 mmol/LNormal3.7-5.1CMarietta Memorial Hospital on above:Order Comment: Specimen Type: BLOOD SPECIMENOrdering Facility: [facility] Address:[address] [place] [id number] By: #### 1987-11, , 2776-07, ####[facility] LABCLIA [id number] [place] [id number] [place] AMERICAProtein [Mass/Vol]6.2 g/dLLow6.3-8.0[facility] on above:Order Comment: Specimen Type: BLOOD SPECIMENOrdering Facility: [facility] Address:[address] [place], [place] [address]Performed By: #### 1987-11, , 2776-07, 73155-9 ####[facility] LABCLIA [id number] [place] [id number] [place] AMERICASodium [Moles/Vol]139 mmol/YPilgqq309-930BkryvntslTriHealth Bethesda [facility] Hospital on above:Order Comment: Specimen Type: BLOOD SPECIMENOrdering Facility: [facility] Address:[address] [place], [place] [address]Performed By: #### 1987-11, , 2776-07, ####[facility] LABCLIA [id number] [place] [id number] [place] AMERICAUrea nitrogen [Mass/Vol]10 mg/dL Normal7-21[facility] on above:Order Comment: Specimen Type: BLOOD SPECIMENOrdering Facility: [facility] Address:[address] [place], [place] [address]Performed By: #### 1987-11, , 2776-07, ####[facility] LABIA [id number] [place] [id number] [place] AMERICAED NOTEon 44-78-2193FY NOTENormalCleveland [facility] NOTENormalCleveland [facility] NOTEHNO ID: [id number] Author: GALILEO CONDON RN Service: Emergency Medicine Author Type: Registered Nurse Type: ED Notes Filed: 07/30/2024 15:22 Note Text: Pt has been at [facility] awaiting transfer to [facility], crohn's flare, symptoms for 2 weeks.NormalPomerene Hospital PROV NOTEon 83-28-6351LM PROV NOTE NormalDunlap Memorial HospitalESR Westergren method (Bld) [Velocity]on 08-94-7264YXU (Bld) [Velocity]41 mm/hHigh0-20[facility] Hospitalment on above:Order Comment: Specimen Type: BLOOD SPECIMENOrdering Facility: [facility] Address:[address] [place] [address] Performed By: #### 4537-7 ####[facility] LABCLIA [id number] [place] [id number] [place] HISTORY PHYSICALon 71-96-1075IPGFOBZ PHYSICALNormalCUniversity Hospitals Health System Magnesium SerPl-mCncon 98-73-3816Ifyczmknc [Mass/Vol]1.8 mg/dLNormal1.7-2.3 [facility] on above:Order Comment: Specimen Type: BLOOD SPECIMENOrdering Facility: [facility] Address:[address] [place], [place] [address]Performed By: #### 1988-5, 48413-3, 2777-1, 28962-5 ####[facility] LABCLIA [id number] [place] [address] [place] AMERICAPT panel Coag (PPP)on 07-30-2024 INR Coag (PPP) [Relative time]1.0 {INR}Normal0.9-1.3CUniversity Hospitals Health System Comment on above:Order Comment: Specimen Type: BLOOD SPECIMENOrdering Facility: [facility] Address:[address] [place], [place] [address]Result Comment: Vitamin K Antagonist (VKA) Therapeutic Range: INR 2 to 3 (Target INR of 2.5)Note: For patients treated with VKA drugs, such as warfarin, the [place] [employer] Chest Physicians 2012 Guideline recommends [...] al. Chest 2012, 141:7S-47SAubrey RA, et al. [facility] 2017, 70: 252-289Performed By: #### 65793-8 ####[facility] [id number] [place] [address] [place] AMERICAPT Coag (PPP) [Time] 11.3 sNormal9.7-13.0[facility] on above:Order Comment: Specimen Type: BLOOD SPECIMENOrdering Facility: [facility] Address:[address] [place], [place] [address]Performed By: #### 17585-3 ####[facility] [id number] [place] [address] [place] AMERICAPhosphate SerPl-mCncon 07-30-2024 Phosphate [Mass/Vol]2.6 mg/dLLow2.7-4.8CMarietta Memorial Hospital on above:Order Comment: Specimen Type: BLOOD SPECIMENOrdering Facility: [facility] Address:[address] [place], [place] [address]Performed By: #### 1988-5, 64623-4, 2777-1, 85072-7 ####[facility] [id number] [address] [place] SEPSIS LACTATE W/ REFLEX (INITIAL)on 20-47-3088Eifgtah [Moles/Vol]0.8 mmol/L Normal<=2.0[facility] on above:Order Comment: Specimen Type: BLOOD SPECIMENOrdering Facility: [facility] Address:[address] [place], [place] [address]Performed By: #### SLACTR ####[facility] [id number] [address]ETTYPE + SCREENon 63-67-4633EJUCIcarvaAoswqecknMarietta Memorial Hospital on above:Order Comment: Specimen Type: BLOOD SPECIMENOrdering Facility: [facility] Address:[address] [place], [place] [address]Performed By: #### TSCR ####[facility] MA[facility] BLOOD BANKCLIA [id number] [address]ETRh Nom (Bld)Negative NormalTriHealth Bethesda North Hospital on above:Order Comment: Specimen Type: BLOOD SPECIMENOrdering Facility: [facility] Address:[address] [place], [place] [address]Performed By: #### TSCR ####[facility] MAIN BLOOD BANKCLIA [id number] [address]ETTYPE AND SCREEN JBTZZAEEQL68/29/2025 23:59NormalCMarietta Memorial Hospital on above:Order Comment: Specimen Type: BLOOD SPECIMENOrdering Facility: [facility] Address:[address] [place], [place] [address]Performed By: #### TSCR ####[facility] MAIN BLOOD BANKCLIA [id number] [address]Basic Metabolic Panelon 13-80-8008Wld, Glom Filt Rate- PINFBon [facility] on above: These results are not intended [...] secretion. Interpretation and review of laboratory resultsAbnormalBon [facility] Basic Metabolic Profon 52-82-9523Jnwqp gap [Moles/Vol]10 mmol/LNormal9-16Bon [facility] on above:Performed By: #### CRP, HCG, LIP, TROPI, CDP, CP #### [facility] [address] [place] [address] Securities Adviser: ANGIE Gargalcium [Mass/Vol]8.5 mg/dLLow8.6-10.4[facility] HealthComment on above:Performed By: #### CRP, HCG, LIP, TROPI, CDP, CP #### [place] [address] Securities Adviser: Dioni Merlos MDChloride [Moles/Vol]107 mmol/JSnymdn70-672[facility] HealthComment on above:Performed By: #### CRP, HCG, LIP, TROPI, CDP, CP #### [place] [address] Securities Adviser: Dioni Merlos MDCO2 [Moles/Vol]22 mmol/MGmfiua12-11Fnt SecBayne Jones Army Community Hospital HealthComment on above:Performed By: #### CRP, HCG, LIP, TROPI, CDP, CP #### [place] [address] Securities Adviser: ANGIE Gargreatinine [Mass/Vol]0.6 mg/dLNormal0.6-0.9[facility] HealthComment on above:Performed By: #### CRP, HCG, LIP, TROPI, CDP, CP #### [place] [address] Securities Adviser: Dioni Merlos MDGlucose [Mass/Vol]72 mg/qJHlt15-82Wtu SecBayne Jones Army Community Hospital HealthComment on above:Performed By: #### CRP, HCG, LIP, TROPI, CDP, CP #### [address] [address] Securities Adviser: Dioni Merlos MDPotassium [Moles/Vol]4.8 mmol/LNormal3.7-5.3[facility] HealthComment on above:Performed By: #### CRP, HCG, LIP, TROPI, CDP, CP #### [facility] [place] [address] Securities Adviser: CASS Gargodium [Moles/Vol]139 mmol/JRbltff643-335LqfCarilion Roanoke Community HospitalComtrinity health [facility] hospital on above:Performed By: #### CRP, HCG, LIP, TROPI, CDP, CP #### [facility] [address] [place] [address] Securities Adviser: Dioni Merlos MDUrea nitrogen [Mass/Vol]13 mg/dLNormal6-20[facility] on above:Performed By: #### CRP, HCG, LIP, TROPI, CDP, CP #### [facility] [address] [place] [address] Securities Adviser: Dioni Merlos MDGFR/1.73 sq M.predicted among non-blacks [...] CRP, HCG, LIP, TROPI, CDP, CP #### [facility] [place] [address] Securities Adviser: Dioni Merlos MDC-Reactive Proteinon 71-40-7885CZP High sensitivity method [Mass/Vol]6.9 mg/LHigh0.0 - 5.0 mg/LBon [facility] Interpretation and review of laboratory resultsAbnormalBon [facility] Bon [facility] DaytonCRP [Mass/Vol]6.9 mg/LHigh0.0-5.0[facility]huja Medical CenterComment on above:Performed By: #### CRP, HCG, LIP, TROPI, CDP, CP #### [facility] [address] [place] [address] Securities Adviser: Isma Garg 00-89-8101Jcucazgpide distribution width (RBC) [Ratio]15.6 %High11.8 - 14.4 %[facility] Community HospitalHematocrit (Bld) [Volume fraction]38.9 %36.3 - 47.1 %[facility] Community HospitalHemoglobin (Bld) [Mass/Vol]11.9 g/dL11.9 - 15.1 g/dLBon [facility] DaytonInterpretation and review of laboratory resultsAbnormalMary Washington HealthcareH (RBC) [Entitic mass]27.6 pg25.2 - 33.5 pgBon [facility] Medical CenterHC (RBC) [Mass/Vol]30.6 g/dL 28.4 - 34.8 g/dLBon [facility] Regional Medical CenterV (RBC) [Entitic vol]90.3 fL82.6 - 102.9 fLCarilion Roanoke Community HospitalNucleated RBC/100 WBC (Bld) [Ratio]0.0 %0.0 per 100 WBCCarilion Roanoke Community HospitalPlatelet mean volume (Bld) [Entitic vol]10.9 fL 8.1 - 13.5 fLCarilion Roanoke Community HospitalPlatelets (Bld) [#/Vol]292 10*3/uLBon [facility] DaytonRBC (Bld) [#/Vol]4.31 10*6/uL3.95 - 5.11 m/uLCarilion Roanoke Community HospitalWBC other (Bld) [#/Vol]8.0Bon [facility] SystemErythrocyte distribution width (RBC) [Ratio]15.6 %High11.8-14.4[facility]huja Medical CenterComment on above:Performed By: #### CBC, LACTIC #### [facility] [address] [place], [place] [id number] Securities Adviser: Dioni Merlos MDHematocrit (Bld) [Volume fraction]38.9 %Normal 36.3-47.1MKaiser Permanente San Francisco Medical CenterComment on above:Performed By: #### CBC, LACTIC #### [address] [address] Securities Adviser: Dioni Merlos MDHemoglobin (Bld) [Mass/Vol]11.9 g/dLNormal 11.9-15.1MKaiser Permanente San Francisco Medical CenterComment on above:Performed By: #### CBC, LACTIC #### [address] [address] Securities Adviser: JAN GargCH (RBC) [Entitic mass]27.6 vbEirokr42.2-33.5 [facility] Medical CenterComment on above:Performed By: #### CBC, LACTIC #### [place] [address] Securities Adviser: JAN GargCHC (RBC) [Mass/Vol]30.6 g/lMJjopbt09.4-34.8 [facility] Medical CenterComment on above:Performed By: #### CBC, LACTIC #### [address] [address] Securities Adviser: JAN GargCV (RBC) [Entitic vol]90.3 xNZztnbf67.6-102.9 [facility] Medical CenterComment on above:Performed By: #### CBC, LACTIC #### [address] [address] Securities Adviser: Dioni Merlos MDNRBC Automated0.0 per 100 WBCNormal0.0[facility] Ahuja Medical CenterComment on above:Performed By: #### CBC, LACTIC #### [address] [address] Securities Adviser: RACHID Garglatelet mean volume (Bld) [Entitic vol]10.9 fL Normal8.1-13.5[facility]huja Medical CenterComment on above:Performed By: #### CBC, LACTIC #### [facility] [place] [address] Securities Adviser: Latisha Gargtelets (Bld) [#/Vol]292 10*3/oWEikhsc724-944 [facility] Medical CenterComment on above:Performed By: #### CBC, LACTIC #### [facility] [address] [place] [address] Securities Adviser: THEODORE GargBC (Bld) [#/Vol]4.31 10*6/uLNormal3.95-5.11 [facility] Medical CenterComment on above:Performed By: #### CBC, LACTIC #### [facility] [address] [place] [address] Securities Adviser: Dioni Merlos MDWBC (Bld) [#/Vol]8.0 10*3/uLNormal3.5-11.3MKaiser Permanente San Francisco Medical CenterComment on above:Performed By: #### CBC, LACTIC #### [facility] [place] [address] Securities Adviser: Dioni Merlos MDGlucose,Whole Bloodon 06-08-0600Cvlzlwe [Mass/Vol]72 mg/[id number] Hospitals Ahuja Medical CenterLactic Acidon 60-90-5207Sgzukk Acid, Whole Blood1.0 mmol/L0.7 - 2.1 mmol/LBon [facility] DaytonBon SecAvita Health System Bucyrus HospitalLactic Acid,Whole Bl1.0 mmol/LNormal0.7-2.1MKaiser Permanente San Francisco Medical CenterComment on above:Performed By: #### CBC, LACTIC #### [facility] [address] [place] [id number] Securities Adviser: Chris Garggnesiumon [phone] [Mass/Vol]2.2 mg/dLNormal1.6-2.6Bon [facility] DaytonComment on above:Performed By: #### CRP, HCG, LIP, TROPI, CDP, CP #### [facility] [place], [place] [id number] Securities Adviser: Dioni Merlos MDNo Panel Informationon [id number] [facility] Glucose Fingerstickon 23-78-4460Bdspvfb [Mass/Vol]72 mg/dL65 - 105 mg/dLBon [facility] DaytonBon [facility] DaytonPhosphoruson 07-29-2024 Phosphate [Mass/Vol]3.9 mg/dL2.5 - 4.5 mg/dLBon [facility] DaytonPhosphorus, Inorg.on 69-45-8421Brdxfffuff, Inorg.3.9 mg/dLNormal2.5-4.5University Hospitals Ahuja Medical CenterComment on above:Performed By: #### CRP, HCG, LIP, TROPI, CDP, CP #### [facility] [address] [place] [address] [phone] Securities Adviser: SIERRA Garg ABDOMEN (KUB) (SINGLE AP VIEW)on [id number] ABDOMEN (KUB) (SINGLE AP VIEW)EXAMINATION: ONE SUPINE XRAY VIEW(S) OF THE ABDOMEN 07/29/2024 12:37 pm COMPARISON: 07/21/2024 HISTORY: ORDERING SYSTEM PROVIDED HISTORY: abdominal pain TECHNOLOGIST PROVIDED HISTORY: abdominal pain Reason for Exam: Abdominal Pain FINDINGS: Ileus. No free air. No gross bony abnormality. IMPRESSION: Ileus Interpreted by: Rahul Rincon MD Signed by: Rahul Rincon MD 07/29/24 Final resultNormalMerFairchild Medical CenterXR Abdomen Single viewon 95-03-7569Acffy MHPN RIS CONSOLIDATEDEXAMINATION: ONE SUPINE XRAY VIEW(S) OF THE ABDOMEN 07/29/2024 12:37 pm COMPARISON: 07/21/2024 HISTORY: ORDERING SYSTEM PROVIDED HISTORY: abdominal pain TECHNOLOGIST PROVIDED HISTORY: abdominal pain Reason for Exam: Abdominal Pain FINDINGS: Ileus. No free air. No gross bony abnormality. [facility] Rahul Valero MD - 07/29/2024 EXAMINATION: ONE SUPINE XRAY VIEW(S) OF THE ABDOMEN 07/29/2024 12:37 pm COMPARISON: 07/21/2024 HISTORY: ORDERING SYSTEM PROVIDED HISTORY: abdominal pain TECHNOLOGIST PROVIDED HISTORY: abdominal pain Reason for Exam: Abdominal Pain FINDINGS: Ileus. No free air. No gross bony abnormality. IMPRESSION: Ileus [facility] 911 ViewRadiology Study observation (narrative)[facility] 911 ViewXR Abdomen Single viewOrdered By: Rahul Rincon on [id number] 911 View Work Phone: Basic Metabolic Panelon 36-81-8766Yyafp gap [Moles/Vol]7 mmol/LLow9 - 16 mmol/LBon [facility] HealthCalcium [Mass/Vol]9.2 mg/dL8.6 - 10.4 mg/dLBon 911 ViewChloride [Moles/Vol]105 mmol/L98 - 107 mmol/LBon [facility] HealthCO2 [Moles/Vol]27 mmol/L20 - 31 mmol/LBon 911 ViewCreatinine [Mass/Vol]0.5 mg/dLLow0.6 - 0.9 mg/dLBon 911 ViewEst, Glom Filt Rate- PINFBon 911 ViewComment on above: These results are not intended [...] secretion. Glucose [Mass/Vol]90 mg/dL74 - 99 mg/dLBon 911 ViewInterpretation and review of laboratory resultsAbnormalBon 911 ViewPotassium [Moles/Vol]5.0 mmol/L3.7 - 5.3 mmol/LBon 911 ViewSodium [Moles/Vol] 139 mmol/L136 - 145 mmol/LBon [facility] DaytonUrea nitrogen [Mass/Vol]10 mg/dL6 - 20 mg/dLBon [facility] DaytonBasic Metabolic Profon 55-17-7830Kuhet gap [Moles/Vol]7 mmol/LLow9-16University Hospitals Ahuja Medical CenterComment on above: Performed By: #### CRP, HCG, LIP, TROPI, CDP, CP #### [facility] [address] [place] [address] Securities Adviser: ANGIE Gargalcium [Mass/Vol]9.2 mg/dLNormal8.6-10.4University Hospitals Ahuja Medical CenterComment on above:Performed By: #### CRP, HCG, LIP, TROPI, CDP, CP #### [facility] [address] [place] [address]168 Securities Adviser: ANGIE Garghloride [Moles/Vol]105 mmol/PZltjny11-875IamndUniversity Hospitals Ahuja Medical CenterComment on above:Performed By: #### CRP, HCG, LIP, TROPI, CDP, CP #### [facility] [address] [place] [address] 96[address] Securities Adviser: Dioni Merlos MDCO2 [Moles/Vol]27 mmol/TWjxowg34-81IwvbqUniversity Hospitals Ahuja Medical CenterComment on above:Performed By: #### CRP, HCG, LIP, TROPI, CDP, CP #### [facility] [address] [place] [address] 00141 Securities Adviser: ANGIE Gargreatinine [Mass/Vol]0.5 mg/dLLow0.6-0.9[facility]als Ahuja Medical CenterComment on above:Performed By: #### CRP, HCG, LIP, TROPI, CDP, CP #### [facility] [address] [place] [address] 39075 Securities Adviser: Dioni Merlos MDGFR/1.73 sq M.predicted among non-blacks [...] CRP, HCG, LIP, TROPI, CDP, CP #### [facility] [address] [place] [address] Securities Adviser: Dioni Merlos MDGlucose [Mass/Vol]90 mg/mGArbtbw79-07SlehjKaiser Permanente San Francisco Medical CenterComment on above:Performed By: #### CRP, HCG, LIP, TROPI, CDP, CP #### [facility] [address] [place] [address] Securities Adviser: RACHID Gargotassium [Moles/Vol]5.0 mmol/LNormal3.7-5.3 [facility]huja Medical CenterComment on above:Performed By: #### CRP, HCG, LIP, TROPI, CDP, CP #### [facility] [address] [place] [address] Securities Adviser: CASS Gargodium [Moles/Vol]139 mmol/PGjpivi798-687XxqxkUniversity Hospitals Ahuja Medical CenterComment on above:Performed By: #### CRP, HCG, LIP, TROPI, CDP, CP #### [facility] [address] [place] [address] Securities Adviser: Dioni Merlos MDUrea nitrogen [Mass/Vol]10 mg/dLNormal6-20[facility]als Ahuja Medical CenterComment on above:Performed By: #### CRP, HCG, LIP, TROPI, CDP, CP #### [facility] [address] [place], [place] [address], [place] [id number] Securities Adviser: Isma Garg [phone] distribution width (RBC) [Ratio]16.0 %High11.8 - 14.4 %[facility] Community HospitalHematocrit (Bld) [Volume fraction]35.8 %Low36.3 - 47.1 %[facility] HospitalHemoglobin (Bld) [Mass/Vol]11.0 g/dLLow11.9 - 15.1 g/dLBon [facility] DaytonInterpretation and review of laboratory resultsAbnormalMary Washington HealthcareH (RBC) [Entitic mass]27.6 pg25.2 - 33.5 pgMary Washington HealthcareHC (RBC) [Mass/Vol]30.7 g/dL 28.4 - 34.8 g/dLBon [facility] Regional Medical CenterV (RBC) [Entitic vol]89.9 fL82.6 - 102.9 fLCarilion Roanoke Community HospitalNucleated RBC/100 WBC (Bld) [Ratio]0.0 %0.0 per 100 WBCCarilion Roanoke Community HospitalPlatelet mean volume (Bld) [Entitic vol]11.4 fL 8.1 - 13.5 fLCarilion Roanoke Community HospitalPlatelets (Bld) [#/Vol]222 10*3/uLBon [facility] DaytonRBC (Bld) [#/Vol]3.98 10*6/uL3.95 - 5.11 m/uLCarilion Roanoke Community HospitalWBC other (Bld) [#/Vol]5.0Bon [facility] SystemErythrocyte distribution width (RBC) [Ratio]16.0 %High11.8-14.4Mer[facility] Kindred HospitalComment on above:Performed By: #### CRP, HCG, LIP, TROPI, CDP, CP #### [facility] [place], [place] [id number] Securities Adviser: Dioni Merlos MDHematocrit (Bld) [Volume fraction]35.8 %Low 36.3-47.1Mer[facility] Kindred HospitalComment on above:Performed By: #### CRP, HCG, LIP, TROPI, CDP, CP #### [address] [address] Securities Adviser: Dioni Merlos MDHemoglobin (Bld) [Mass/Vol]11.0 g/dLLow11.9-15.1 [facility] Ahuja Medical CenterComment on above:Performed By: #### CRP, HCG, LIP, TROPI, CDP, CP #### [address] [address] Securities Adviser: JAN GargCH (RBC) [Entitic mass]27.6 boLtmkiu43.2-33.5 [facility] Ahuja Medical CenterComment on above:Performed By: #### CRP, HCG, LIP, TROPI, CDP, CP #### [address] [address] Securities Adviser: SHARYN GargC (RBC) [Mass/Vol]30.7 g/aOVgwupv00.4-34.8 [facility]huja Medical CenterComment on above:Performed By: #### CRP, HCG, LIP, TROPI, CDP, CP #### [address] [address] Securities Adviser: JAN GargCV (RBC) [Entitic vol]89.9 cYFozhky67.6-102.9 [facility]huja Medical CenterComment on above:Performed By: #### CRP, HCG, LIP, TROPI, CDP, CP #### [address] [address] Securities Adviser: Dioni Merlos MDNRBC Automated0.0 per 100 WBCNormal0.0[facility] Ahuja Medical CenterComment on above:Performed By: #### CRP, HCG, LIP, TROPI, CDP, CP #### [address] [address] Securities Adviser: Natalia Garg mean volume (Bld) [Entitic vol]11.4 fL Normal8.1-13.5[facility] Hospit[facility] Ahuja Medical CenterComment on above:Performed By: #### CRP, HCG, LIP, TROPI, CDP, CP #### [facility] [address] [place] [address] Securities Adviser: Latisha Gargtetaina (Bld) [#/Vol]222 10*3/sBVzwyku763-116 [facility]ja Medical CenterComment on above:Performed By: #### CRP, HCG, LIP, TROPI, CDP, CP #### [facility] [address] [place] [address] Securities Adviser: Dioni Merlos [facility]ITAL–SMITHVILLEBC (Bld) [#/Vol]3.98 10*6/uLNormal3.95-5.11 [facility]ja Medical CenterComment on above:Performed By: #### CRP, HCG, LIP, TROPI, CDP, CP #### [address] [address] Securities Adviser: GIANNA Garg (Bld) [#/Vol]5.0 10*3/uLNormal3.5-11.3MKaiser Permanente San Francisco Medical CenterComment on above:Performed By: #### CRP, HCG, LIP, TROPI, CDP, CP #### [facility] [address] [place] [address] Securities Adviser: Dioni Merlos MDMagnesiumon [id number] [Mass/Vol]2.3 mg/dL1.6 - 2.6 mg/dLBon [facility] DaytonMagnesium [Mass/Vol]2.3 mg/dLNormal 1.6-2.6MKaiser Permanente San Francisco Medical CenterComment on above:Performed By: #### CRP, HCG, LIP, TROPI, CDP, CP #### [facility] [address] [place] [address] [phone] Securities Adviser: Dioni Merlos MDNo Panel Informationon 01-21-6267Rdv SecSeamless HealthPhosphoruson 35-80-6180Jqhlmtegj [Mass/Vol]4.1 mg/dL2.5 - 4.5 mg/dL Bon [facility] HealthPhosphorus, Inorg.on 13-63-9926Sragpuywnd, Inorg.4.1 mg/dLNormal2.5-4.5Mer[facility] Kindred HospitalComment on above:Performed By: #### CRP, HCG, LIP, TROPI, CDP, CP #### [facility] [address] [place], [place] [phone] Securities Adviser: Dioni Merlos MDBasic Metabolic Panelon 62-42-8883Zhfvc gap [Moles/Vol]9 mmol/L9 - 16 mmol/LBon Secours [facility]ood[facility] HealthCalcium [Mass/Vol]8.8 mg/dL8.6 - 10.4 mg/dLBon SecSeamless HealthChloride [Moles/Vol]102 mmol/L98 - 107 mmol/LBon [facility] HealthCO2 [Moles/Vol]26 mmol/L20 - 31 mmol/LBon [facility] HealthCreatinine [Mass/Vol]0.5 mg/dLLow0.6 - 0.9 mg/dLBon [facility] HealthEst, Glom Filt Rate- PINFBon SecSeamless HealthComment on above: These results are not [...] secretion. Glucose [Mass/Vol]91 mg/dL74 - 99 mg/dLBon K[facility] Hospitalityy HealthInterpretation and review of laboratory resultsAbnormalBon [facility] HealthPotassium [Moles/Vol]4.3 mmol/L3.7 - 5.3 mmol/LBon [facility] HealthSodium [Moles/Vol] 137 mmol/L136 - 145 mmol/LBon [facility] HealthUrea nitrogen [Mass/Vol]8 mg/dL6 - 20 mg/dLBon [facility] DaytonBasic Metabolic Profon 19-51-6474Hcoqm gap [Moles/Vol]9 mmol/LNormal9-16[facility]huja Medical CenterComment on above:Performed By: #### CBC, LACTIC #### [facility] [address] [place] [address] Securities Adviser: ANGIE Gargalcium [Mass/Vol]8.8 mg/dLNormal8.6-10.4[facility]huja Medical CenterComment on above:Performed By: #### CBC, LACTIC #### [facility] [address] [place] [address] Securities Adviser: ANGIE Garghloride [Moles/Vol]102 mmol/UHwdrfi07-267TnlheUniversity Hospitals Ahuja Medical CenterComment on above:Performed By: #### CBC, LACTIC #### [facility] [address] [place] [address] Securities Adviser: Dioni Merlos MDCO2 [Moles/Vol]26 mmol/BQchzmc83-58JuhamUniversity Hospitals Ahuja Medical CenterComment on above:Performed By: #### CBC, LACTIC #### [facility] [address] [place] [address] Securities Adviser: ANGIE Gargreatinine [Mass/Vol]0.5 mg/dLLow0.6-0.9[facility]ja Medical CenterComment on above:Performed By: #### CBC, LACTIC #### [facility] [address] [place] [address] Securities Adviser: Dioni Merlos MDGFR/1.73 sq M.predicted among non-blacks MDRD (S/P/Bld) [Vol rate/Area]mL/min/{1.73_m2}Normal>60MerFairchild Medical CenterComment on above:Result Comment: These results [...] By: #### CBC, LACTIC #### [facility] [address] [place] [address] Securities Adviser: Dioni Merlos MDGlucose [Mass/Vol]91 mg/iOZpoqvx12-09SrgzhKaiser Permanente San Francisco Medical CenterComment on above:Performed By: #### CBC, LACTIC #### [place] [address] Securities Adviser: Dioni Merlos MDPotassium [Moles/Vol]4.3 mmol/LNormal3.7-5.3 [facility]ja Medical CenterComment on above:Performed By: #### CBC, LACTIC #### [facility] [address] [place] [address] Securities Adviser: CASS Gargodium [Moles/Vol]137 mmol/ZWwcndi559-447KmvovUniversity Hospitals Ahuja Medical CenterComment on above:Performed By: #### CBC, LACTIC #### [address] [address] Securities Adviser: Dioni Merlos MDUrea nitrogen [Mass/Vol]8 mg/dLNormal6-20[facility]ja Medical CenterComment on above:Performed By: #### CBC, LACTIC #### [place] [address] Securities Adviser: Chris Garggnesiumon 08-42-9128Xwwqxndmo [Mass/Vol]2.5 mg/dL1.6 - 2.6 mg/dLBon [facility] DaytonMagnesium [Mass/Vol]2.5 mg/dLNormal 1.6-2.6Mer[facility] Kindred HospitalComment on above:Performed By: #### CBC, LACTIC #### [facility] [address] [place], [place] [phone] Securities Adviser: Dioni Merlos MDNo Panel Informationon 53-91-7400Ffy St. Mary'S HospitalSeamless [facility] HospitalPhosphoruson 10-28-4568Jynamiaxu [Mass/Vol]4.4 mg/dL2.5 - 4.5 mg/dL Bon [facility] DaytonPhosphorus, Inorg.on 84-47-1753Oewvifkdzy, Inorg.4.4 mg/dLNormal2.5-4.5[facility] Kindred HospitalComment on above:Performed By: #### CBC, LACTIC #### [facility] [address] [place] [address] Securities Adviser: Lupillo Gargc Metabolic Panelon 32-87-9777Yguey gap [Moles/Vol]7 mmol/LLow9 - 16 mmol/LBon St. Mary'S HospitalSeamless [facility] HospitalCalcium [Mass/Vol]8.3 mg/dLLow8.6 - 10.4 mg/dLBon St. Mary'S HospitalPhorestChloride [Moles/Vol]106 mmol/L 98 - 107 mmol/LBon St. Mary'S HospitalSeamless [facility] HospitalCO2 [Moles/Vol]27 mmol/L20 - 31 mmol/LBon St. Mary'S HospitalPhorestCreatinine [Mass/Vol]0.4 mg/dLLow0.6 - 0.9 mg/dLBon St. Mary'S HospitalSeamless [facility] HospitalEst, Glom Filt Rate- PINFBon [facility]ist Health St. HelenaCogniK [facility] HospitalComment on above: These results are not [...] that affects renal tubular secretion. Glucose [Mass/Vol]109 mg/yDSstd19 - 99 mg/dLBon St. Mary'S HospitalPhorest Interpretation and review of laboratory resultsAbnormalBon [facility] Potassium [Moles/Vol]3.8 mmol/L3.7 - 5.3 mmol/LBon [facility] DaytonSodium [Moles/Vol]140 mmol/L136 - 145 mmol/LBon [facility] DaytonUrea nitrogen [Mass/Vol]5 mg/dLLow6 - 20 mg/dLBon [facility] DaytonBasic Metabolic Profon 70-05-9805Anmcg gap [Moles/Vol]7 mmol/LLow9-16[facility] Comment on above:Performed By: #### CRP #### [facility] [address] [place] [address] Securities Adviser: ANGIE Gargalcium [Mass/Vol]8.3 mg/dLLow8.6-10.4[facility]ja Medical CenterComment on above:Performed By: #### CRP #### [facility] [address] [place] [address] Securities Adviser: ANGIE Garghloride [Moles/Vol]106 mmol/UIlkfbe14-352BcsqbUniversity Hospitals Ahuja Medical CenterComment on above:Performed By: #### CRP #### [facility] [address] [place] [address] Securities Adviser: ANGIE GargO2 [Moles/Vol]27 mmol/EIfsabj34-91WpkehUniversity Hospitals Ahuja Medical CenterComment on above:Performed By: #### CRP #### [facility] [address] [place] [address] Securities Adviser: ANGIE Gargreatinine [Mass/Vol]0.4 mg/dLLow0.6-0.9[facility]ja Medical CenterComment on above:Performed By: #### CRP #### [facility] [address] [place] [address] Securities Adviser: Dioni Merlos MDGFR/1.73 sq M.predicted among non-blacks [...] renal tubular secretion.Performed By: #### CRP #### [facility] [address] [place] [address] Securities Adviser: Dioni Merlos MDGlucose [Mass/Vol]109 mg/jIEkgt96-93PdxrcKaiser Permanente San Francisco Medical CenterComment on above:Performed By: #### CRP #### [address] [address] Securities Adviser: RACHID Gargotassium [Moles/Vol]3.8 mmol/LNormal3.7-5.3 [facility] Medical CenterComment on above:Performed By: #### CRP #### [address] [address] Securities Adviser: CASS Gargodium [Moles/Vol]140 mmol/APirjpv903-223OzmuvUniversity Hospitals Ahuja Medical CenterComment on above:Performed By: #### CRP #### [address] [address] Securities Adviser: Dioni Merlos MDUrea nitrogen [Mass/Vol]5 mg/dLLow6-20[facility] Medical CenterComment on above:Performed By: #### CRP #### [address] [address] Securities Adviser: Dioni Merlos MDCalprotectin Stoolon 88-18-6689Wutxrqkgphxd, Jsoos9269 ug/gHighNINF - 49 ug/gBon [facility] DaytonComment on above:(NOTE) REFERENCE INTERVAL: Calprotectin, Fecal by Immunoassay Less than 50 ug/g........Normal 50-120 ug/g..............Borderline elevated, test should be re-evaluated in 4-6 weeks. 121 ug/g or greater......Elevated Performed By: [facility] [address] [place] [address] Die Finisher Forging: Hugo Ramsey MD, PhD CLIA Number: [id number] Interpretation and review of laboratory resultsAbnormalBon [facility] CenterCalprotectin, Fecalon 61-02-7465Nekuvyrhodfe, Vnnto6654 ug/gHigh<=49Mer[facility]red HospitalComment on above:Result Comment: (NOTE) REFERENCE INTERVAL: Calprotectin, Fecal by Immunoassay Less than 50 ug/g........Normal 50-120 ug/g..............Borderline elevated, test should be re-evaluated in 4-6 weeks. 121 ug/g or greater......Elevated Performed By: [facility] [address] [place] [address] Die Finisher Forging: Hugo Ramsey MD, PhD CLIA Number: [id number] By: #### CRP #### [facility] [address] [place], [place] [phone] Securities Adviser: Chris Garggnesiumon 50-79-5031Uogtqbrny [Mass/Vol]2.1 mg/dL1.6 - 2.6 mg/dLBon [facility] DaytonMagnesium [Mass/Vol]2.1 mg/dLNormal 1.6-2.6[facility]red HospitalComment on above:Performed By: #### CBC, LACTIC #### [facility] [address] [place], [place] [phone] Securities Adviser: Dioni Merlos MDNo Panel Informationon 05-01-3231Nve [facility] DaytonPhosphoruson 56-96-5664Wyvxsmoif [Mass/Vol]3.4 mg/dL2.5 - 4.5 mg/dL [facility] HospitalPhosphorus, Inorg.on 48-97-4004Xodboarjew, Inorg.3.4 mg/dLNormal2.5-4.5[facility]red HospitalComment on above:Performed By: #### CBC, LACTIC #### [facility] [address] [place] [phone] Securities Adviser: Shlomo Garg Metabolic Panelon 62-02-4346Sgbnz gap [Moles/Vol]8 mmol/LLow9 - 16 mmol/LBon St. Mary'S HospitalPhorestCalcium [Mass/Vol]8.6 mg/dL8.6 - 10.4 mg/dLBon St. [facility]'S HospitalPhorestChloride [Moles/Vol]107 mmol/L98 - 107 mmol/LBon St. Mary'S HospitalPhorestCO2 [Moles/Vol]25 mmol/L20 - 31 mmol/LBon St. [facility]S HospitalPhorestCreatinine [Mass/Vol]0.5 mg/dLLow0.6 - 0.9 mg/dLBon St. Mary'S HospitalPhorestEst, Glom Filt Rate- PINFBon St. Mary'S HospitalPhorestComment on above: These results are not intended [...] that affects renal tubular secretion. Glucose [Mass/Vol]108 mg/pRWgfn16 - 99 mg/dLBon [address] Interpretation and review of laboratory resultsAbnormalBon St. Mary'S HospitalPhorest Potassium [Moles/Vol]3.6 mmol/LLow3.7 - 5.3 mmol/LBon [address] Comment on above:Specimen hemolysis has exceeded the interference as defined by Luis. Value may be falsely increased. Suggest recollection if clinically indicated. Sodium [Moles/Vol]140 mmol/L136 - 145 mmol/LBon 911 ViewUrea nitrogen [Mass/Vol]mg/dLLow6 - 20 mg/dLBon St. Mary'S HospitalPhorestBajane [facility] Metabolic Profon 81-16-8381Ejiql gap [Moles/Vol]8 mmol/LLow9-16[facility]ja Medical CenterComment on above:Performed By: #### CBC, LACTIC #### [facility] [address] [place] [address] Securities Adviser: Dioni Merlos MDCalcium [Mass/Vol]8.6 mg/dLNormal8.6-10.4[facility] Medical CenterComment on above:Performed By: #### CBC, LACTIC #### [facility] [address] [place] [address] Securities Adviser: Dioni Merlos MDChloride [Moles/Vol]107 mmol/OHolgmd77-293XtqmaUniversity Hospitals Ahuja Medical CenterComment on above:Performed By: #### CBC, LACTIC #### [facility] [address] [place] [address] Securities Adviser: Dioni Merlos MDCO2 [Moles/Vol]25 mmol/KYcejil90-40OjvmtUniversity Hospitals Ahuja Medical CenterComment on above:Performed By: #### CBC, LACTIC #### [facility] [address] [place] [address] Securities Adviser: ANGIE Gargreatinine [Mass/Vol]0.5 mg/dLLow0.6-0.9[facility] Medical CenterComment on above:Performed By: #### CBC, LACTIC #### [facility] [address] [place] [address] Securities Adviser: Dioni Merlos MDGFR/1.73 sq M.predicted among non-blacks MDRD (S/P/Bld) [Vol rate/Area]mL/min/{1.73_m2}Normal>60MerFairchild Medical CenterComment on above:Result Comment: These results [...] By: #### CBC, LACTIC #### [facility] [address] [place] [address] Securities Adviser: Dioni Merlos MDGlucose [Mass/Vol]108 mg/bQOltf46-87GyzjwKaiser Permanente San Francisco Medical CenterComment on above:Performed By: #### CBC, LACTIC #### [facility] [address] [place] [address] Securities Adviser: RACHID Gargotassium [Moles/Vol]3.6 mmol/LLow3.7-5.3MKaiser Permanente San Francisco Medical CenterComment on above:Result Comment: Specimen hemolysis has exceeded the interference as defined by Luis. Value may be falsely increased. Suggest recollection if clinically indicated.Performed By: #### CBC, LACTIC #### [facility] [address] [place] [address] Securities Adviser: CASS Gargodium [Moles/Vol]140 mmol/WDoufjm789-036UrzhuUniversity Hospitals Ahuja Medical CenterComment on above:Performed By: #### CBC, LACTIC #### [facility] [address] [place] [address] Securities Adviser: Dioni Merlos MDUrea nitrogen [Mass/Vol]mg/dLLow6-20[facility] Medical CenterComment on above:Performed By: #### CBC, LACTIC #### [facility] [address] [place] [address] Securities Adviser: Isma Garg 49-44-0092Mwyxcgadses distribution width (RBC) [Ratio]15.9 %High11.8 - 14.4 %Bon SecPertino HealthHematocrit (Bld) [Volume fraction]32.6 %Low36.3 - 47.1 %[facility] HealthHemoglobin (Bld) [Mass/Vol]10.4 g/dLLow11.9 - 15.1 g/dLBon [facility] DaytonInterpretation and review of laboratory resultsAbnormalRiverside [facility] Hospital (RBC) [Entitic mass]27.6 pg25.2 - 33.5 pgMary Washington HealthcareHC (RBC) [Mass/Vol]31.9 g/dL 28.4 - 34.8 g/dLBon [facility] Regional Medical CenterV (RBC) [Entitic vol]86.5 fL82.6 - 102.9 fLCarilion Roanoke Community HospitalNucleated RBC/100 WBC (Bld) [Ratio]0.0 %0.0 per 100 WBCCarilion Roanoke Community HospitalPlatelet mean volume (Bld) [Entitic vol]9.7 fL8.1 - 13.5 fLCarilion Roanoke Community HospitalPlatelets (Bld) [#/Vol]219 10*3/uLCarilion Roanoke Community HospitalRBC (Bld) [#/Vol]3.77 10*6/uLLow3.95 - 5.11 m/[facility] Medical CenterWBC other (Bld) [#/Vol]4.9Bon [facility] Erythrocyte distribution width (RBC) [Ratio]15.9 %High11.8-14.4[facility]huja Medical CenterComment on above:Performed By: #### CRP, HCG, LIP, TROPI, CDP, CP #### [facility] [address] [place], [place] [phone] Securities Adviser: Dioni Merlos MDHematocrit (Bld) [Volume fraction]32.6 %Low 36.3-47.1MKaiser Permanente San Francisco Medical CenterComment on above:Performed By: #### CRP, HCG, LIP, TROPI, CDP, CP #### [facility] [address] [place], [place] [phone] Securities Adviser: Dioni Merlos MDHemoglobin (Bld) [Mass/Vol]10.4 g/dLLow11.9-15.1 [facility] Medical CenterComment on above:Performed By: #### CRP, HCG, LIP, TROPI, CDP, CP #### [facility] [address] [place] [address] Securities Adviser: JAN GargCH (RBC) [Entitic mass]27.6 dmHolmoq73.2-33.5 [facility]huja Medical CenterComment on above:Performed By: #### CRP, HCG, LIP, TROPI, CDP, CP #### [facility] [address] [place] [address] Securities Adviser: SHARYN GargC (RBC) [Mass/Vol]31.9 g/iBHekqpk45.4-34.8 [facility]ja [facility] CenterComment on above:Performed By: #### CRP, HCG, LIP, TROPI, CDP, CP #### [facility] [address] [place] [address] Securities Adviser: XOCHITL Garg (RBC) [Entitic vol]86.5 oGBnxfny00.6-102.9 [facility] Medical CenterComment on above:Performed By: #### CRP, HCG, LIP, TROPI, CDP, CP #### [facility] [address] [place] [address] Securities Adviser: GAYATRI Garg Automated0.0 per 100 WBCNormal0.0[facility]huja Medical CenterComment on above:Performed By: #### CRP, HCG, LIP, TROPI, CDP, CP #### [facility] [address] [place] [address] Securities Adviser: Natalia Garg mean volume (Bld) [Entitic vol]9.7 fL Normal8.1-13.5[facility]huja Medical CenterComment on above:Performed By: #### CRP, HCG, LIP, TROPI, CDP, CP #### [facility] [address] [place] [address] Securities Adviser: Lionel Garg (Bld) [#/Vol]219 10*3/bIKznnvq992-387 [facility] CenterComment on above:Performed By: #### CRP, HCG, LIP, TROPI, CDP, CP #### [facility] [place] [address] Securities Adviser: THEODORE Garg ([facility]) [#/Vol]3.77 10*6/uLLow3.95-5.11[facility]ja Medical CenterComment on above:Performed By: #### CRP, HCG, LIP, TROPI, CDP, CP #### [facility] [address] [place] [address] Securities Adviser: HONG Garg ([facility]) [#/Vol]4.9 10*3/uLNormal3.5-11.3MKaiser Permanente San Francisco Medical CenterComment on above:Performed By: #### CRP, HCG, LIP, TROPI, CDP, CP #### [facility] [address] [place] [address] Securities Adviser: Dioni Merlos MDGlucose,Whole Bloodon 91-79-7150Jnscqrl [Mass/Vol]107 mg/kDEqai04-688XpfnbUniversity Hospitals Ahuja Medical CenterMagnesiumon 28-32-5702Pjlfdozul [Mass/Vol]1.9 mg/dL1.6 - 2.6 mg/dLBon [facility] Magnesium [Mass/Vol]1.9 mg/dLNormal1.6-2.6MKaiser Permanente San Francisco Medical Center Comment on above:Performed By: #### CBC, LACTIC #### [facility] [address] [place] [address] Securities Adviser: Dioni Merlos MDNo Panel Informationon 14-87-2003Csi [facility] Glucose Fingerstickon 94-19-2797Feuyhxa [Mass/Vol]107 mg/dLHigh 65 - 105 mg/dLBon [facility] DaytonInterpretation and review of laboratory resultsAbnormalBon [facility] SecNorthwest Rural Health NetworkCogniK [facility] HospitalPhosphoruson 18-64-9112Zmbjkpamg [Mass/Vol]3.4 mg/dL2.5 - 4.5 mg/dLBon [facility] urturn Phosphorus, Inorg.on 94-74-2292Tzqnlpxcci, Inorg.3.4 mg/dLNormal2.5-4.5[facility] Kindred HospitalComment on above:Performed By: #### CBC, LACTIC #### [facility] [address] [place] [address] Securities Adviser: Dioni Merlos MDWindham Hospital Metabolic Panelon 07-01-3091Nurqj gap [Moles/Vol]12 mmol/L9 - 16 mmol/LBon [facility] Odimax HealthCalcium [Mass/Vol]8.4 mg/dLLow8.6 - 10.4 mg/dLBon [facility] Odimax HealthChloride [Moles/Vol]107 mmol/L98 - 107 mmol/LBon [facility] Odimax HealthCO2 [Moles/Vol]18 mmol/LLow20 - 31 mmol/L Bon [facility] FrontalRain TechnologiesCreatinine [Mass/Vol]0.4 mg/dLLow0.6 - 0.9 mg/dLBon [facility] FrontalRain TechnologiesEst, Glom Filt Rate- PINFBon [facility] Health St. HelenaCogniK [facility] HospitalComment on above: These results are not [...] secretion. Glucose [Mass/Vol]86 mg/dL74 - 99 mg/dLBon [facility] FrontalRain TechnologiesPotassium [Moles/Vol]3.8 mmol/L3.7 - 5.3 mmol/LBon [facility] Odimax [facility] HospitalComment on above: Specimen hemolysis has exceeded the interference as defined by Luis. Value may be falsely increased. Suggest recollection if clinically indicated. Sodium [Moles/Vol]137 mmol/L136 - 145 mmol/LBon St. Mary'S Hospitalours [facility]cy HealthUrea nitrogen [Mass/Vol]mg/dLLow6 - 20 mg/dLBon [facility] Metabolic Profon 03-31-1164Jqvqn gap [Moles/Vol]12 mmol/LNormal9-16[facility]huja Medical CenterComment on above:Performed By: #### CRP, HCG, LIP, TROPI, CDP, CP #### [address] [address] Securities Adviser: ANGIE Gargalcium [Mass/Vol]8.4 mg/dLLow8.6-10.4[facility]ja Medical CenterComment on above:Performed By: #### CRP, HCG, LIP, TROPI, CDP, CP #### [facility] [address] [place] [address] Securities Adviser: ANGIE Garghloride [Moles/Vol]107 mmol/FAsefyr51-032SynuzUniversity Hospitals Ahuja Medical CenterComment on above:Performed By: #### CRP, HCG, LIP, TROPI, CDP, CP #### [facility] [address] [place] [address] Securities Adviser: Dioni Merlos MDCO2 [Moles/Vol]18 mmol/IMnj77-47YdujwUniversity Hospitals Ahuja Medical CenterComment on above:Performed By: #### CRP, HCG, LIP, TROPI, CDP, CP #### [facility] [address] [place] [address] Securities Adviser: ANGIE Gargreatinine [Mass/Vol]0.4 mg/dLLow0.6-0.9[facility]ja Medical CenterComment on above:Performed By: #### CRP, HCG, LIP, TROPI, CDP, CP #### [facility] [address] [place] [address] Securities Adviser: Dioni Merlos MDGFR/1.73 sq M.predicted among non-blacks [...] CRP, HCG, LIP, TROPI, CDP, CP #### [facility] [address] [place] [address] Securities Adviser: Dioni Merlos MDGlucose [Mass/Vol]86 mg/wDQqphvh86-09EnundKaiser Permanente San Francisco Medical CenterComment on above:Performed By: #### CRP, HCG, LIP, TROPI, CDP, CP #### [place] [address] Securities Adviser: RACHID Gargotassium [Moles/Vol]3.8 mmol/LNormal3.7-5.3 [facility] Medical CenterComment on above:Result Comment: Specimen hemolysis has exceeded the interference as defined by Luis. Value may be falsely increased. Suggest recollection if clinically indicated.Performed By: #### CRP, HCG, LIP, TROPI, CDP, CP #### [place] [address] Securities Adviser: CASS Gargodium [Moles/Vol]137 mmol/PMqiypx973-873KqcgaUniversity Hospitals Ahuja Medical CenterComment on above:Performed By: #### CRP, HCG, LIP, TROPI, CDP, CP #### [facility] [address] [place] [address] Securities Adviser: Dioni Merlos MDUrea nitrogen [Mass/Vol]mg/dLLow6-20[facility]ja Medical CenterComment on above:Performed By: #### CRP, HCG, LIP, TROPI, CDP, CP #### [facility] [address] [place] [address] Securities Adviser: Isma Garg [id number] distribution width (RBC) [Ratio]15.7 %High11.8 - 14.4 %[facility] HospitalHematocrit (Bld) [Volume fraction]38.1 %36.3 - 47.1 %[facility] HospitalHemoglobin (Bld) [Mass/Vol]11.6 g/dLLow11.9 - 15.1 g/dLBon [facility] DaytonInterpretation and review of laboratory resultsAbnormalRiverside [facility] Hospital (RBC) [Entitic mass]28.0 pg25.2 - 33.5 pgMary Washington HealthcareHC (RBC) [Mass/Vol]30.4 g/dL 28.4 - 34.8 g/dLBon [facility] Regional Medical CenterV (RBC) [Entitic vol]91.8 fL82.6 - 102.9 fLCarilion Roanoke Community HospitalNucleated RBC/100 WBC (Bld) [Ratio]0.0 %0.0 per 100 WBCCarilion Roanoke Community HospitalPlatelet mean volume (Bld) [Entitic vol]9.9 fL8.1 - 13.5 fLCarilion Roanoke Community HospitalPlatelets (Bld) [#/Vol]177 10*3/uLCarilion Roanoke Community HospitalRBC (Bld) [#/Vol]4.15 10*6/uL3.95 - 5.11 m/uLCarilion Roanoke Community HospitalWBC other (Bld) [#/Vol]4.9Bon [facility] Erythrocyte distribution width (RBC) [Ratio]15.7 %High11.8-14.4[facility]ja Medical CenterComment on above:Performed By: #### CBC, LACTIC #### [facility] [address] [place] [address] Securities Adviser: Dioni Merlos MDHematocrit (Bld) [Volume fraction]38.1 %Normal 36.3-47.1Mer[facility] Kindred HospitalComment on above:Performed By: #### CBC, LACTIC #### [facility] [address] [place] [address] Securities Adviser: Dioni Merlos MDHemoglobin (Bld) [Mass/Vol]11.6 g/dLLow11.9-15.1 [facility] Medical CenterComment on above:Performed By: #### CBC, LACTIC #### [place] [address] Securities Adviser: JAN GargCH (RBC) [Entitic mass]28.0 bqKawspf72.2-33.5 [facility] Medical CenterComment on above:Performed By: #### CBC, LACTIC #### [address] [address] Securities Adviser: JAN GargCHC (RBC) [Mass/Vol]30.4 g/hNCdxcsn24.4-34.8 [facility] Medical CenterComment on above:Performed By: #### CBC, LACTIC #### [place] [address] Securities Adviser: JAN GargCV (RBC) [Entitic vol]91.8 mUVsblqa11.6-102.9 [facility] Medical CenterComment on above:Performed By: #### CBC, LACTIC #### [place] [address] Securities Adviser: Dioni Merlos MDNRBC Automated0.0 per 100 WBCNormal0.0[facility]ja Medical CenterComment on above:Performed By: #### CBC, LACTIC #### [facility] [address] [place] [address] Securities Adviser: RACHID Garglatelet mean volume (Bld) [Entitic vol]9.9 fL Normal8.1-13.5[facility]ja Medical CenterComment on above:Performed By: #### CBC, LACTIC #### [facility] [address] [place] [address] Securities Adviser: Lionel Garg (d) [#/Vol]177 10*3/gREutuzp656-242 [facility] Medical CenterComment on above:Performed By: #### CBC, LACTIC #### [facility] [address] [place] [address] Securities Adviser: FADY Garg (Bld) [#/Vol]4.15 10*6/uLNormal3.95-5.11 [facility] Medical CenterComment on above:Performed By: #### CBC, LACTIC #### [facility] [address] [place] [address] Securities Adviser: GIANNA Garg (d) [#/Vol]4.9 10*3/uLNormal3.5-11.3MKaiser Permanente San Francisco Medical CenterComment on above:Performed By: #### CBC, LACTIC #### [facility] [address] [place] [address] Securities Adviser: Cielo Gargintestinal Panel, [facility] 07-23-2024 Campylobacter sp DNA CARLOTTA+probe Nom (Unsp spec)NEGATIVE: No Campylobacter spp. (jejuni or coli) DNA DetectedNEGATIVE: No Campylobacter spp. (jejuni or coli) DNA DetecteBon [facility] DaytonE. coli enterotoxigenic eltA+estB genes CARLOTTA+probe Ql (Stl)NEGATIVE: No Enterotoxigenic E. coli (ETEC) Heat-labile and heat-stable (LT/ST) DNA DetectedNEGATIVE: No Enterotoxigenic E. coli (ETEC) Heat-labile andBon [facility]. shigelloides DNA CARLOTTA+probe Ql (Stl) NegativeNEGATIVE: No Plesionomas shigelloides DNA DetectedBon [facility] DaytonSalmonella sp DNA CARLOTTA+probe Ql (Unsp spec)NegativeNEGATIVE: No Salmonella spp. DNA DetectedBon [facility] DaytonShiga toxin stx gene CARLOTTA+probe Nom (Unsp spec)NegativeNEGATIVE: No Shiga toxin-producing gene(s) DetectedCarilion Roanoke Community HospitalShigella sp DNA CARLOTTA+probe Ql (Unsp spec)NegativeNEGATIVE: No Shigella spp. / EIEC DNA DetectedCarilion Roanoke Community HospitalSpecimen Description .FECESCarilion Roanoke Community HospitalV. cholerae+parahaemolyticus rfbL+trkH+tnaA genes CARLOTTA+probe Ql (Stl)NEGATIVE: No Vibrio (V. vulnificus, V, parahaemolyticus and V. cholerae) DNA DetectedNEGATIVE: No Vibrio (V. vulnificus, V, parahaemolyticus andBon [facility] HealthY. enterocolitica recN gene CARLOTTA+probe Ql (Stl) NegativeNEGATIVE: No Yersinia enterocolitica DNA DetectedCarilion Roanoke Community HospitalBon [facility] DaytonGlucose,Whole Bloodon 53-62-1980Nwdidak [Mass/Vol] 114 mg/rCIhhq26-789JgypsUniversity Hospitals Ahuja Medical CenterHepatic Function Panelon 53-63-0696Yealnfr [Mass/Vol]2.7 g/dLLow3.5 - 5.2 g/dLBon [facility] Albumin/Globulin [Mass ratio]1.0 {ratio}1.0 - 2.5Bon [facility] HealthALP [Catalytic activity/Vol]64 U/L35 - 104 U/LBon [facility] HealthALT [Catalytic activity/Vol]U/LLow10 - 35 U/LBon [facility] HealthAST [Catalytic activity/Vol]16 U/L10 - 35 U/LBon [facility] HealthBilirubin [Mass/Vol]0.2 mg/dL0.0 - 1.2 mg/dLBon [facility]Bay[facility] HealthBilirubin.direct [Mass/Vol]mg/dL0.0 - 0.2 mg/dLBon [facility] HealthBilirubin.indirect [Mass/Vol]Can not be calculated0.0 - 1.0 mg/dLBon [facility] HealthGlobulin (S) [Mass/Vol]2.6 g/dL Bon [facility] HealthProtein [Mass/Vol]5.3 g/dLLow6.6 - 8.7 g/dLBon [facility] DaytonLiver Profileon 96-38-0710Jdcbxxu [Mass/Vol]2.7 g/dLLow3.5-5.2MKaiser Permanente San Francisco Medical CenterComment on above:Performed By: #### CRP, HCG, LIP, TROPI, CDP, CP #### [facility] [address] [place] [address] Securities Adviser: Dioni Merlos MDAlbumin/Glob Ratio1.1Uqknxa5.0-2.5[facility]huja Medical CenterComment on above:Performed By: #### CRP, HCG, LIP, TROPI, CDP, CP #### [address] [address] Securities Adviser: Ulysses Garg Phos64 U/VSsviij30-231UsvpfUniversity Hospitals Ahuja Medical CenterComment on above:Performed By: #### CRP, HCG, LIP, TROPI, CDP, CP #### [address] [address] Securities Adviser: Dioni Merlos MDALT [Catalytic activity/Vol]U/OBko99-37DkdqoUniversity Hospitals Ahuja Medical CenterComment on above:Performed By: #### CRP, HCG, LIP, TROPI, CDP, CP #### [address] [address] Securities Adviser: Dioni Merlos MDAST [Catalytic activity/Vol]16 U/NYrstco70-31 [facility] Medical CenterComment on above:Performed By: #### CRP, HCG, LIP, TROPI, CDP, CP #### [facility] [address] [place] [address] Securities Adviser: Dioni Merlos MDBilirubin [Mass/Vol]0.2 mg/dLNormal0.0-1.2MKaiser Permanente San Francisco Medical CenterComment on above:Performed By: #### CRP, HCG, LIP, TROPI, CDP, CP #### [facility] [address] [place] [address] [phone] Securities Adviser: Dioni Merlos MDBilirubin, IndirectCan not be calculatedNormal 0.0-1.0[facility]ja Medical CenterComment on above:Performed By: #### CRP, HCG, LIP, TROPI, CDP, CP #### [facility] [address] [place] [address] Securities Adviser: Dioni Merlos MDBilirubin.indirect [Mass/Vol]mg/dLNormal0.0-0.2 [facility] Medical CenterComment on above:Performed By: #### CRP, HCG, LIP, TROPI, CDP, CP #### [facility] [address] [place] [address] Securities Adviser: Dioni Merlos MDGlobulin (S) [Mass/Vol]2.6 g/dLNormalUniversity Hospitals Ahuja Medical CenterComment on above:Performed By: #### CRP, HCG, LIP, TROPI, CDP, CP #### [facility] [address] [place] [address] Securities Adviser: RACHID Gargrotein [Mass/Vol]5.3 g/dLLow6.6-8.7[facility]ja Medical CenterComment on above:Performed By: #### CRP, HCG, LIP, TROPI, CDP, CP #### [facility] [address] [place] [address] Securities Adviser: Chris Garggnesiumon 48-25-0236Scpgtmuxb [Mass/Vol]2.0 mg/dL1.6 - 2.6 mg/dLBon [facility] DaytonMagnesium [Mass/Vol]2.0 mg/dLNormal 1.6-2.6MKaiser Permanente San Francisco Medical CenterComment on above:Performed By: #### CRP, HCG, LIP, TROPI, CDP, CP #### [facility] [address] [place] [address] Securities Adviser: Dioni Merlos MDNo Panel Informationon 90-07-8486Ogcwsniegpxxij and review of laboratory resultsAbnormalRiverside Regional Medical CenterPOC Glucose Fingerstickon 10-43-1090Lynwnfw [Mass/Vol]114 mg/dLHigh 65 - 105 mg/dLBon [facility] DaytonInterpretation and review of laboratory resultsAbnormalRiverside Regional Medical CenterPhosphoruson 24-71-5102Ukjicbdqo [Mass/Vol]2.9 mg/dL2.5 - 4.5 mg/dLBon [facility] Phosphorus, Inorg.on 82-46-2064Jwfueimtfd, Inorg.2.9 mg/dLNormal2.5-4.5[facility] Medical CenterComment on above:Performed By: #### CRP, HCG, LIP, TROPI, CDP, CP #### [facility] [address] [place] [address] Securities Adviser: Alfredo Garg Batteryon 30-27-8598Fgkrzgpkzevqr sp PCRNEGATIVE: No Campylobacter spp. (jejuni or coli) DNA DetectedNoalCCherrington HospitalComment on above:Performed By: #### CRP #### [facility] [address] [place] [address] Securities Adviser: ZORAN Garg coli enterotox PCRNEGATIVE: No Enterotoxigenic E. coli (ETEC) Heat-labile and heat-stable (LT/ST)NormalEECNEGUniversity Hospitals Ahuja Medical CenterComment on above:Result Comment: DNA DetectedPerformed By: #### CRP #### [facility] [address] [place] [address] Securities Adviser: Devin Garg sp PCRNegativeNoSelect Medical [facility] Clinic Rehabilitation Hospital, AvonComment on above:Performed By: #### CRP #### [facility] [address] [place] [address] Securities Adviser: Librado Gagr sp PCRNegativeNormalSALNEGUniversity Hospitals Ahuja Medical CenterComment on above:Performed By: #### CRP #### [address] [address] Securities Adviser: Ji Gargoxin gene PCRNegativeNormalSTXOhio State East HospitalComment on above:Performed By: #### CRP #### [address] [address] Securities Adviser: Catarino Gargla sp PCRNegativeNoalSHIOhio State East HospitalComment on above:Performed By: #### CRP #### [address] [address] Securities Adviser: Estephania Garg sp PCRNEGATIVE: No Vibrio (V. vulnificus, V, parahaemolyticus and V. cholerae) DNANormalVIBNEGUniversity Hospitals Ahuja Medical CenterComment on above:Result Comment: DetectedPerformed By: #### CRP #### [address] [address] Securities Adviser: Beltran Gargia gene PCRNegativeNoalYEROhio State East HospitalComment on above:Performed By: #### CRP #### [address] [address] Securities Adviser: Dioni Merlos MDTriglycerideon 80-26-1196Csbnvdtvjdqe [Mass/Vol] 124 mg/dLNINF - 150 mg/dLBon [facility] DaytonComment on above: Triglyceride Guidelines: <150 Desirable 150-199 Borderline 200-499 High >499 Very high Based on AHA Guidelines for fasting triglyceride, April 2012. Triglycerideson 89-26-7874Nqppfhyxeraf [Mass/Vol]124 mg/dLNormal<150[facility]ja Medical CenterComment on above:Result Comment: Triglyceride Guidelines: <150 Desirable 150-199 Borderline 200-499 High >499 Very high Based on AHA Guidelines for fasting triglyceride, April 2012.Performed By: #### CRP, HCG, LIP, TROPI, CDP, CP #### [facility] [address] [place] [address] Securities Adviser: Dioni Merlos [facility] with Auto Differentialon 77-55-0591Zzgdycmqs (Bld) [#/Vol]0.04 10*3/uLBon Secours Mercy HealthBasophils/100 WBC (Bld)1 %0 - 2 %[facility] HealthEosinophils (Bld) [#/Vol]0.19 10*3/uLBon Secours Mercy HealthEosinophils/100 WBC (Bld)3 %1 - 4 %[facility] Erythrocyte distribution width (RBC) [Ratio]15.4 %High11.8 - 14.4 %[facility] HealthHematocrit (Bld) [Volume fraction]39.4 %36.3 - 47.1 %[facility] HealthHemoglobin (Bld) [Mass/Vol]11.8 g/dLLow11.9 - 15.1 g/dLBon Secours [facility]cy [facility] HospitalImmature granulocytes (Bld) [#/Vol][facility] HealthImmature granulocytes/100 WBC (Bld)0 %0[facility] HealthInterpretation and review of laboratory resultsAbnormalBon [facility]ours [facility] HealthLymphocytes/100 WBC (Bld)14 %Low24 - 43 %[facility] HealthLymphocytes/100 WBC (Bld)0.79 %LowBon Secours [facility] & [facility] Hospitaly [facility] HospitalH (RBC) [Entitic mass]27.5 pg25.2 - 33.5 pgBon Secours [facility] Hospitaly [facility] HospitalHC (RBC) [Mass/Vol]29.9 g/dL28.4 - 34.8 g/dLBon Secours [facility] Hospitaly [facility] HospitalV (RBC) [Entitic vol]91.8 fL82.6 - 102.9 fLBon [facility]ours [facility] Monocytes/100 WBC (Bld)8 %3 - 12 %[facility] HealthMonocytes/100 WBC (Bld)0.46 %[facility] HealthNeutrophils/100 WBC (Bld)73 %High36 - 65 %[facility] HospitalNucleated RBC/100 WBC (Bld) [Ratio]0.0 %0.0 per 100 WBCCarilion Roanoke Community HospitalPlatelet mean volume (Bld) [Entitic vol]9.4 fL8.1 - 13.5 fL [facility] HospitalPlatelets (Bld) [#/Vol]294 10*3/uLCarilion Roanoke Community HospitalRBC (Bld) [#/Vol]4.29 10*6/uL3.95 - 5.11 m/uLCarilion Roanoke Community HospitalRBC (Bld) [#/Vol]ANISOCYTOSIS PRESENTCarilion Roanoke Community HospitalSegmented neutrophils/100 WBC (Bld)4.04 %[facility] HospitalWBC other (Bld) [#/Vol] 5.5Bon [facility] SystemCBC with Diffon 07-22-2024 Abs. Basophil0.04 k/uLNormal0.00-0.20[facility] Medical CenterComment on above:Performed By: #### CRP, HCG, LIP, TROPI, CDP, CP #### [facility] [address] [place] [address] Securities Adviser: Ruba Garg.Imm.Granulocyte<0.08Iivlvf3.00-0.30[facility]ja Medical CenterComment on above:Performed By: #### CRP, HCG, LIP, TROPI, CDP, CP #### [facility] [address] [place] [address] Securities Adviser: MDAbs. BritanyNeutrophil (Seg)4.04 k/uLNormal1.50-8.10 [facility] Medical CenterComment on above:Performed By: #### CRP, HCG, LIP, TROPI, CDP, CP #### [facility] [address] [place] [address] Securities Adviser: Dioni Merlos MDBasophils/100 WBC (Bld)1 %Normal0-2MercJerold Phelps Community HospitalComment on above:Performed By: #### CRP, HCG, LIP, TROPI, CDP, CP #### [address] [address] Securities Adviser: Dioni Merlos MDEosinophils (Bld) [#/Vol]0.19 10*3/uLNormal 0.00-0.44[facility] Medical CenterComment on above:Performed By: #### CRP, HCG, LIP, TROPI, CDP, CP #### [address] [address] Securities Adviser: ZORAN Gargosinophils/100 WBC (Bld)3 %Normal1-4[facility] Medical CenterComment on above:Performed By: #### CRP, HCG, LIP, TROPI, CDP, CP #### [place] [address] Securities Adviser: Dioni Merlos MDErythrocyte distribution width (RBC) [Ratio]15.4 %High11.8-14.4[facility] Medical CenterComment on above:Performed By: #### CRP, HCG, LIP, TROPI, CDP, CP #### [address] [address] Securities Adviser: Dioni Merlos MDHematocrit (Bld) [Volume fraction]39.4 %Normal 36.3-47.1MKaiser Permanente San Francisco Medical CenterComment on above:Performed By: #### CRP, HCG, LIP, TROPI, CDP, CP #### [address] [address] Securities Adviser: Dioni Merlos MDHemoglobin (Bld) [Mass/Vol]11.8 g/dLLow11.9-15.1 [facility] CenterComment on above:Performed By: #### CRP, HCG, LIP, TROPI, CDP, CP #### [facility] [address] [place] [address] Securities Adviser: Roger Garg granulocytes/100 WBC (Bld)0 %Normal0 [facility] Medical CenterComment on above:Performed By: #### CRP, HCG, LIP, TROPI, CDP, CP #### [address] [address] Securities Adviser: Dioni Merlos MDLymphocytes (Bld) [#/Vol]0.79 10*3/uLLow 1.10-3.70[facility] Medical CenterComment on above:Performed By: #### CRP, HCG, LIP, TROPI, CDP, CP #### [place] [address] Securities Adviser: Dereck Gargmphocytes/100 WBC (Bld)14 %Tju42-63GmwheUniversity Hospitals Ahuja Medical CenterComment on above:Performed By: #### CRP, HCG, LIP, TROPI, CDP, CP #### [place] [address] Securities Adviser: JAN GargCH (RBC) [Entitic mass]27.5 ndIzmmhj93.2-33.5 [facility] [facility] Ahuja Medical CenterComment on above:Performed By: #### CRP, HCG, LIP, TROPI, CDP, CP #### [place] [address] Securities Adviser: JAN GargCHC (RBC) [Mass/Vol]29.9 g/eUQsnbbh68.4-34.8 [facility] CenterComment on above:Performed By: #### CRP, HCG, LIP, TROPI, CDP, CP #### [address] [address] Securities Adviser: JAN GargCV (RBC) [Entitic vol]91.8 gPOmelhl44.6-102.9 [facility] CenterComment on above:Performed By: #### CRP, HCG, LIP, TROPI, CDP, CP #### [facility] [address] [place] [address] Securities Adviser: JAN Gargonocytes (Bld) [#/Vol]0.46 10*3/uLNormal 0.10-1.20[facility] CenterComment on above:Performed By: #### CRP, HCG, LIP, TROPI, CDP, CP #### [facility] [address] [place] [address] Securities Adviser: JAN Gargonocytes/100 WBC (Bld)8 %Normal3-12[facility] CenterComment on above:Performed By: #### CRP, HCG, LIP, TROPI, CDP, CP #### [address] [address] Securities Adviser: Laly Garg (Seg)73 %Kaun86-71JdzjeUniversity Hospitals Ahuja Medical CenterComment on above:Performed By: #### CRP, HCG, LIP, TROPI, CDP, CP #### [facility] [address] [place] [address] Securities Adviser: Dioni Merlos MDNRBC Automated0.0 per 100 WBCNormal0.0[facility]ja [facility] CenterComment on above:Performed By: #### CRP, HCG, LIP, TROPI, CDP, CP #### [facility] [address] [place] [address] Securities Adviser: Latisha Gargteankush mean volume (Bld) [Entitic vol]9.4 fL Normal8.1-13.5[facility]ja Medical CenterComment on above:Performed By: #### CRP, HCG, LIP, TROPI, CDP, CP #### [facility] [address] [place] [address] Securities Adviser: Dioni Madoff, MDPlatelets (Bld) [#/Vol]294 10*3/dLHzgmhn371-870 [facility] CenterComment on above:Performed By: #### CRP, HCG, LIP, TROPI, CDP, CP #### [facility] [address] [place] [address] Securities Adviser: FADY Garg (Bld) [#/Vol]4.29 10*6/uLNormal3.95-5.11 [facility] CenterComment on above:Performed By: #### CRP, HCG, LIP, TROPI, CDP, CP #### [facility] [address] [place] [address] Securities Adviser: FADY Garg morphology finding Nom (Bld)ANISOCYTOSIS PRESENTNormalUniversity Hospitals Ahuja Medical CenterComment on above:Performed By: #### CRP, HCG, LIP, TROPI, CDP, CP #### [facility] [address] [place] [address] Securities Adviser: GIANNA Garg (Bld) [#/Vol]5.5 10*3/uLNormal3.5-11.3MKaiser Permanente San Francisco Medical CenterComment on above:Performed By: #### CRP, HCG, LIP, TROPI, CDP, CP #### [facility] [address] [place] [address] Securities Adviser: ANGIE Gargjordan [facility] Metabolic Profon 28-75-2356Ptfqidz [Mass/Vol]3.1 g/dLLow3.5-5.2MKaiser Permanente San Francisco Medical CenterComment on above: Performed By: #### CRP, HCG, LIP, TROPI, CDP, CP #### [facility] [address] [place] [address] Securities Adviser: Dioni Merlos MDAlbumin/Glob Ratio1.8Bawwfk4.0-2.5[facility] CenterComment on above:Performed By: #### CRP, HCG, LIP, TROPI, CDP, CP #### [address] [address] Securities Adviser: Ulysses Garg Phos72 U/WItvubx25-314XjqpbUniversity Hospitals Ahuja Medical CenterComment on above:Performed By: #### CRP, HCG, LIP, TROPI, CDP, CP #### [address] [address] Securities Adviser: Dioni Merlos MDALT [Catalytic activity/Vol]U/JLzl94-87EalfwUniversity Hospitals Ahuja Medical CenterComment on above:Performed By: #### CRP, HCG, LIP, TROPI, CDP, CP #### [address] [address] Securities Adviser: Obed Garg gap [Moles/Vol]14 mmol/LNormal9-16[facility]ja Medical CenterComment on above:Performed By: #### CRP, HCG, LIP, TROPI, CDP, CP #### [address] [address] Securities Adviser: Dioni Merlos MDAST [Catalytic activity/Vol]15 U/CIejtxd74-83 [facility] CenterComment on above:Performed By: #### CRP, HCG, LIP, TROPI, CDP, CP #### [address] [address] Securities Adviser: Dioni Merlos MDBilirubin [Mass/Vol]0.2 mg/dLNormal0.0-1.2MKaiser Permanente San Francisco Medical CenterComment on above:Performed By: #### CRP, HCG, LIP, TROPI, CDP, CP #### [address] [address] Securities Adviser: Dioni Merlos MDCalcium [Mass/Vol]8.7 mg/dLNormal8.6-10.4[facility] CenterComment on above:Performed By: #### CRP, HCG, LIP, TROPI, CDP, CP #### [facility] [address] [place] [address] Securities Adviser: ANGIE Garghloride [Moles/Vol]107 mmol/VDjaxfa38-779SruneUniversity Hospitals Ahuja Medical CenterComment on above:Performed By: #### CRP, HCG, LIP, TROPI, CDP, CP #### [facility] [address] [place] [address] Securities Adviser: Dioni Merlos MDCO2 [Moles/Vol]14 mmol/HNgx31-11LnfybUniversity Hospitals Ahuja Medical CenterComment on above:Performed By: #### CRP, HCG, LIP, TROPI, CDP, CP #### [facility] [address] [place] [address] Securities Adviser: ANGIE Gargreatinine [Mass/Vol]0.5 mg/dLLow0.6-0.9[facility] CenterComment on above:Performed By: #### CRP, HCG, LIP, TROPI, CDP, CP #### [facility] [address] [place] [address] Securities Adviser: Dioni Merlos MDGFR/1.73 sq M.predicted among non-blacks [...] HCG, LIP, TROPI, CDP, CP #### [facility] [address] [place] [address] Securities Adviser: Dioni Merlos MDGlucose [Mass/Vol]72 mg/yZEna46-91IdlbrKaiser Permanente San Francisco Medical CenterComment on above:Performed By: #### CRP, HCG, LIP, TROPI, CDP, CP #### [facility] [address] [place] [address] Securities Adviser: Dioni Merlos MDPotassium [Moles/Vol]4.6 mmol/LNormal3.7-5.3 [facility] CenterComment on above:Performed By: #### CRP, HCG, LIP, TROPI, CDP, CP #### [facility] [address] [place] [address] Securities Adviser: Dioni Merlos MDProtein [Mass/Vol]5.9 g/dLLow6.6-8.7[facility] CenterComment on above:Performed By: #### CRP, HCG, LIP, TROPI, CDP, CP #### [facility] [address] [place] [address] Securities Adviser: Dioni Merlos MDSodium [Moles/Vol]135 mmol/DZnl956-833AqyvaUniversity Hospitals Ahuja Medical CenterComment on above:Performed By: #### CRP, HCG, LIP, TROPI, CDP, CP #### [facility] [address] [place] [address] Securities Adviser: Dioni Merlos MDUrea nitrogen [Mass/Vol]mg/dLLow6-20[facility] CenterComment on above:Performed By: #### CRP, HCG, LIP, TROPI, CDP, CP #### [facility] [address] [place] [address] Securities Adviser: ANGIE Gargomprehensive Metabolic Panelon 07-22-2024 Albumin [Mass/Vol]3.1 g/dLLow3.5 - 5.2 g/dLBon [facility] Albumin/Globulin [Mass ratio]1.1 {ratio}1.0 - 2.5Bon [facility] Hospitalours [facility] HealthALP [Catalytic activity/Vol]72 U/L35 - 104 U/LBon Secours [facility]y HealthALT [Catalytic activity/Vol]U/LLow10 - 35 U/LBon [facility]ours [facility] HealthAnion gap [Moles/Vol]14 mmol/L9 - 16 mmol/LBon Secours [facility]y HealthAST [Catalytic activity/Vol]15 U/L10 - 35 U/LBon Secours [facility]y HealthBilirubin [Mass/Vol]0.2 mg/dL0.0 - 1.2 mg/dLBon Secours [facility]y HealthCalcium [Mass/Vol]8.7 mg/dL8.6 - 10.4 mg/dLBon Secours Mercy HealthChloride [Moles/Vol]107 mmol/L98 - 107 mmol/LBon Secours [facility] HealthCO2 [Moles/Vol]14 mmol/LLow20 - 31 mmol/LBon Secours [facility]y HealthCreatinine [Mass/Vol]0.5 mg/dLLow0.6 - 0.9 mg/dLBon Secours [facility] HospitalCogniK HealthEst, Glom Filt Rate - PINFBon SecAvita Health System Bucyrus HospitalComment on above: These results are not [...] secretion. Glucose [Mass/Vol]72 mg/dLLow74 - 99 mg/dLBon [facility] HealthInterpretation and review of laboratory resultsAbnormalBon St. [facility] Hospitalours [facility] HealthPotassium [Moles/Vol]4.6 mmol/L3.7 - 5.3 mmol/LBon Secours [facility] HealthProtein [Mass/Vol] 5.9 g/dLLow6.6 - 8.7 g/dLBon [facility] HealthSodium [Moles/Vol]135 mmol/LLow 136 - 145 mmol/LBon Secours [facility]y HealthUrea nitrogen [Mass/Vol]mg/dLLow6 - 20 mg/dLBon Secours [facility] HospitalBon SecAvita Health System Bucyrus HospitalLactic Acidon 01-18-2025 Lactic Acid, Whole Blood1.0 mmol/L0.7 - 2.1 mmol/LBon [facility] SystemLactic Acid,Whole Bl1.0 mmol/LNormal0.7-2.1MKaiser Permanente San Francisco Medical CenterComment on above:Performed By: #### LACTIC #### [facility] HospitalDamage [facility] [address] [place], [place] [phone] Securities Adviser: Dioni Merlos MDLactic Acid, Whole Blood1.0 mmol/L0.7 - 2.1 mmol/LBon [facility] SystemLactic Acid,Whole Bl1.0 mmol/LNormal0.7-2.1MKaiser Permanente San Francisco Medical CenterComment on above:Performed By: #### LACTIC #### [facility] [address] [place], [place] [phone] Securities Adviser: Juliet Gargctic Acid, Whole Blood0.9 mmol/L0.7 - 2.1 mmol/LBon [facility] SystemLactic Acid,Whole Bl0.9 mmol/LNormal0.7-2.1MKaiser Permanente San Francisco Medical CenterComment on above:Performed By: #### CBC, LACTIC #### [facility] [address] [place] [address] Securities Adviser: Dioni Merlos MDC-Reactive Proteinon [id number] High sensitivity method [Mass/Vol]47.1 mg/LHigh0.0 - 5.0 mg/LBon [facility] Interpretation and review of laboratory resultsAbnormalSentara Halifax Regional HospitalCRP [Mass/Vol]47.1 mg/LHigh0.0-5.0[facility] CenterComment on above:Performed By: #### CRP, HCG, LIP, TROPI, CDP, CP #### [facility] [address] [place] [address] Securities Adviser: Patricia Garg Acidon [id number] Acid, Whole Blood 0.7 mmol/L0.7 - 2.1 mmol/LBon [facility] SystemLactic Acid,Whole Bl0.7 mmol/LNormal0.7-2.1MKaiser Permanente San Francisco Medical CenterComment on above:Performed By: #### CRP #### [facility] HospitalDam[facility] [address] [place], [place] [phone] Securities Adviser: Dioni Merlos MDLactic Acid, Whole Blood0.8 mmol/L0.7 - 2.1 mmol/LBon [facility] SystemLactic Acid,Whole Bl0.8 mmol/LNormal0.7-2.1MKaiser Permanente San Francisco Medical CenterComment on above:Performed By: #### CRP, HCG, LIP, TROPI, CDP, CP #### [facility] [address] [place], [place] [phone] Securities Adviser: Dioni Merlos MDLactic Acid, Whole Blood0.8 mmol/L0.7 - 2.1 mmol/LBon [facility] SystemLactic Acid,Whole Bl0.8 mmol/LNormal0.7-2.1MKaiser Permanente San Francisco Medical CenterComment on above:Performed By: #### CBC, LACTIC #### [facility] HospitalDam[facility] [address] [place], [place] [phone] Securities Adviser: CASS Gargedimentation Rateon [id number] Photometric method (Bld) [Velocity]24HMartinsville Memorial HospitalInterpretation and review of laboratory resultsAbnormalRiverside Regional Medical Center Sedimentation Rate24 mm/HrHigh0-20[facility]ja Medical CenterComment on above:Performed By: #### CRP, HCG, LIP, TROPI, CDP, CP #### [facility] [address] [place] [phone] Securities Adviser: Dioni Madoff, MDXR ABDOMEN FOR NG/OG/NE TUBE PLACEMENTon [id number] ABDOMEN FOR NG/OG/NE TUBE PLACEMENTEXAMINATION: ONE SUPINE [...] Signed by: Fartun Herrera MD 07/21/24 Final resultNormalMerFairchild Medical CenterEnteric catheter tip terminates in the mid to distal gastric body. [facility] CONSOLIDATEDEXAMINATION: ONE SUPINE XRAY VIEW(S) [...] bowel obstruction. No free air is identified. [facility] Fartun Saeed MD - 07/21/2024 [...] in the mid to distal gastric body. [facility] HospitalRadiology Study observation (narrative)[facility] HospitalXR ABDOMEN FOR NG/OG/NE TUBE PLACEMENTOrdered By: Fartun Herrera on 06-99-0574Chh [facility] Work Phone: Basic Metab w/rfx MGon 07-53-7479Ykzjq gap [Moles/Vol] 10 mmol/LNormal9-16[facility]ja Medical CenterComment on above:Performed By: #### CBC, LACTIC #### [facility] [address] [place] [address] Securities Adviser: ANGIE Gargalcium [Mass/Vol]8.0 mg/dLLow8.6-10.4[facility]ja Medical CenterComment on above:Performed By: #### CBC, LACTIC #### [facility] [address] [place] [address] Securities Adviser: ANGIE Garghloride [Moles/Vol]103 mmol/CNcgoti44-480XzndiUniversity Hospitals Ahuja Medical CenterComment on above:Performed By: #### CBC, LACTIC #### [facility] [place] [address] Securities Adviser: Dioni Merlos MDCO2 [Moles/Vol]25 mmol/ZOkortm57-66YtxqhUniversity Hospitals Ahuja Medical CenterComment on above:Performed By: #### CBC, LACTIC #### [facility] [address] [place] [address] Securities Adviser: ANGIE Gargreatinine [Mass/Vol]0.4 mg/dLLow0.6-0.9[facility] Medical CenterComment on above:Performed By: #### CBC, LACTIC #### [facility] [address] [place] [address] Securities Adviser: Dioni Merlos MDGFR/1.73 sq M.predicted among non-blacks MDRD (S/P/Bld) [Vol rate/Area]mL/min/{1.73_m2}Normal>60[facility] CenterComment on above:Result Comment: These results [...] By: #### CBC, LACTIC #### [facility] [address] [place] [address] Securities Adviser: Dioni Merlos MDGlucose [Mass/Vol]72 mg/dLSge00-57DsguxKaiser Permanente San Francisco Medical CenterComment on above:Performed By: #### CBC, LACTIC #### [facility] [address] [place] [address] Securities Adviser: RACHID Gargotassium [Moles/Vol]3.1 mmol/LLow3.7-5.3MKaiser Permanente San Francisco Medical CenterComment on above:Performed By: #### CBC, LACTIC #### [facility] [address] [place] [address] Securities Adviser: CASS Gargodium [Moles/Vol]138 mmol/GCpyeuu188-893EbgvrUniversity Hospitals Ahuja Medical CenterComment on above:Performed By: #### CBC, LACTIC #### [facility] [address] [place] [address] Securities Adviser: Dioni Merlos MDUrea nitrogen [Mass/Vol]4 mg/dLLow6-20[facility] Medical CenterComment on above:Performed By: #### FOZIA, LACTIC #### [facility] [address] [place] [address] Securities Adviser: Dioni Merlos MDBasi Metabolic Panel w/ Reflex to MGon [id number] gap [Moles/Vol]10 mmol/L9 - 16 mmol/LBon [facility] Calcium [Mass/Vol]8.0 mg/dLLow8.6 - 10.4 mg/dLBon Secours [facility] HealthChloride [Moles/Vol]103 mmol/L98 - 107 mmol/LBon [facility]ours [facility] HealthCO2 [Moles/Vol]25 mmol/L20 - 31 mmol/LBon [facility] HealthCreatinine [Mass/Vol]0.4 mg/dLLow0.6 - 0.9 mg/dLBon Secours [facility] Hospitaly HealthEst, Glom Filt Rate- PINFBon SecAvita Health System Bucyrus HospitalComment on above: These results are not [...] Glucose [Mass/Vol]72 mg/dLLow74 - 99 mg/dLBon Secours [facility] Hospitaly HealthPotassium [Moles/Vol]3.1 mmol/LLow3.7 - 5.3 mmol/LBon Secours [facility]y HealthSodium [Moles/Vol]138 mmol/L136 - 145 mmol/LBon [facility]ours [facility]y HealthUrea nitrogen [Mass/Vol]4 mg/dLLow6 - 20 mg/dLBon Secours Guern[facility] Memorial HospitalC-Reactive Proteinon [id number] High sensitivity method [Mass/Vol]39.2 mg/LHigh0.0 - 5.0 mg/LBon Secours [facility]y HealthCRP [Mass/Vol]39.2 mg/LHigh0.0-5.0[facility]red HospitalComment on above:Performed By: #### CBC, LACTIC #### [facility] [address] [place] [address] Securities Adviser: Dioni Merlos [facility] with Auto Differentialon [id number] (Bld) [#/Vol]0.03 10*3/uLBon Secours [facility] Hospitaly [facility] HospitalBasophils/100 WBC (Bld)1 %0 - 2 %[facility] HospitalEosinophils (Bld) [#/Vol]0.09 10*3/uLBon Secours [facility] Hospitaly HealthEosinophils/100 WBC (Bld)2 %1 - 4 %[facility] Erythrocyte distribution width (RBC) [Ratio]15.9 %High11.8 - 14.4 %[facility] HospitalHematocrit (Bld) [Volume fraction]33.5 %Low36.3 - 47.1 %[facility] SecAvita Health System Bucyrus HospitalHemoglobin (Bld) [Mass/Vol]10.9 g/dLLow11.9 - 15.1 g/dLBon Secours Guernsey Memorial HospitalImmature granulocytes (Bld) [#/Vol][facility] HospitalImmature granulocytes/100 WBC (Bld)0 %0Bon [facility] DaytonInterpretation and review of laboratory resultsAbnormalBon SecAvita Health System Bucyrus HospitalLymphocytes/100 WBC (Bld)20 %Low24 - 43 %[facility] SecAvita Health System Bucyrus HospitalLymphocytes/100 WBC (Bld)0.97 %LowBon Community Regional Medical CenterH (RBC) [Entitic mass]27.7 pg25.2 - 33.5 pgBon Community Regional Medical CenterHC (RBC) [Mass/Vol]32.5 g/dL28.4 - 34.8 g/dLBon SecPremier HealthV (RBC) [Entitic vol]85.2 fL82.6 - 102.9 fLCarilion Roanoke Community Hospital Monocytes/100 WBC (Bld)11 %3 - 12 %[facility] HospitalMonocytes/100 WBC (Bld)0.53 %[facility] HospitalNeutrophils/100 WBC (Bld)67 %High36 - 65 %[facility] HospitalNucleated RBC/100 WBC (Bld) [Ratio]0.0 %0.0 per 100 WBCBon SecAvita Health System Bucyrus HospitalPlatelet mean volume (Bld) [Entitic vol]9.6 fL8.1 - 13.5 fL [facility] SecBay[facility] HealthPlatelets (Bld) [#/Vol]223 10*3/uLBon Secours Guernsey Memorial HospitalRBC (Bld) [#/Vol]3.93 10*6/uLLow3.95 - 5.11 m/uLBon [facility]ours [facility] RBC (Bld) [#/Vol]ANISOCYTOSIS PRESENTBon [facility] DaytonSegmented neutrophils/100 WBC (Bld)3.28 %Bon [facility] DaytonWBC other (Bld) [#/Vol] 4.9Bon [facility] SystemCBC with Diffon 07-20-2024 Abs. Basophil0.03 k/uLNormal0.00-0.20[facility] Medical CenterComment on above:Performed By: #### CBC, LACTIC #### [facility] [address] [place] [address] Securities Adviser: MDAbs. BritanyImm.Granulocyte<0.48Eyqfyb0.00-0.30[facility] Medical CenterComment on above:Performed By: #### CBC, LACTIC #### [address] [address] Securities Adviser: MDAbs. BritanyNeutrophil (Seg)3.28 k/uLNormal1.50-8.10 [facility] CenterComment on above:Performed By: #### CBC, LACTIC #### [address] [address] Securities Adviser: Dioni Merlos MDBasophils/100 WBC (Bld)1 %Normal0-2MKaiser Permanente San Francisco Medical CenterComment on above:Performed By: #### CBC, LACTIC #### [address] [address] Securities Adviser: Dioni Merlos MDEosinophils (Bld) [#/Vol]0.09 10*3/uLNormal 0.00-0.44[facility] CenterComment on above:Performed By: #### CBC, LACTIC #### [address] [address] Securities Adviser: Dioni Merlos MDEosinophils/100 WBC (Bld)2 %Normal1-4[facility] Medical CenterComment on above:Performed By: #### CBC, LACTIC #### [address] [address] Securities Adviser: Dioni Merlos MDErythrocyte distribution width (RBC) [Ratio]15.9 %High11.8-14.4[facility] Medical CenterComment on above:Performed By: #### CBC, LACTIC #### [place] [address] Securities Adviser: Dioni Merlos MDHematocrit (Bld) [Volume fraction]33.5 %Low 36.3-47.1MKaiser Permanente San Francisco Medical CenterComment on above:Performed By: #### FOZIA, LACTIC #### [address] [address] Securities Adviser: Dioni Merlos MDHemoglobin (Bld) [Mass/Vol]10.9 g/dLLow11.9-15.1 [facility] CenterComment on above:Performed By: #### CBC, LACTIC #### [address] [address] Securities Adviser: Dioni Merlos MDImmature granulocytes/100 WBC (Bld)0 %Normal0 [facility] CenterComment on above:Performed By: #### CBC, LACTIC #### [address] [address] Securities Adviser: Dioni Merlos MDLymphocytes (Bld) [#/Vol]0.97 10*3/uLLow 1.10-3.70[facility] CenterComment on above:Performed By: #### CBC, LACTIC #### [address] [address] Securities Adviser: Dioni Merlos MDLymphocytes/100 WBC (Bld)20 %Ums29-24RkmpcUniversity Hospitals Ahuja Medical CenterComment on above:Performed By: #### CBC, LACTIC #### [address] [address] Securities Adviser: JAN GargCH (RBC) [Entitic mass]27.7 ntIqkhxz64.2-33.5 [facility] CenterComment on above:Performed By: #### CBC, LACTIC #### [address] [address] Securities Adviser: JAN GargCHC (RBC) [Mass/Vol]32.5 g/lRGctvcr95.4-34.8 [facility] CenterComment on above:Performed By: #### CBC, LACTIC #### [address] [address] Securities Adviser: JAN GargCV (RBC) [Entitic vol]85.2 pBZciflj16.6-102.9 [facility] CenterComment on above:Performed By: #### CBC, LACTIC #### [address] [address] Securities Adviser: JAN Gargonocytes (Bld) [#/Vol]0.53 10*3/uLNormal 0.10-1.20[facility] CenterComment on above:Performed By: #### CBC, LACTIC #### [address] [address] Securities Adviser: JNA Gargonocytes/100 WBC (Bld)11 %Normal3-12[facility] CenterComment on above:Performed By: #### CBC, LACTIC #### [address] [address] Securities Adviser: Fer Gargutrophil (Seg)67 %Jtqh71-92ZsmhlUniversity Hospitals Ahuja Medical CenterComment on above:Performed By: #### CBC, LACTIC #### [address] [address] Securities Adviser: Dioni Merlos MDNRBC Automated0.0 per 100 WBCNormal0.0[facility] Medical CenterComment on above:Performed By: #### CBC, LACTIC #### [facility] [address] [place] [address] Securities Adviser: Latisha Gargteankush mean volume (Bld) [Entitic vol]9.6 fL Normal8.1-13.5[facility] CenterComment on above:Performed By: #### CBC, LACTIC #### [address] [address] Securities Adviser: RACHID Garglatelets (Bld) [#/Vol]223 10*3/uWEfqolp984-797 [facility] CenterComment on above:Performed By: #### CBC, LACTIC #### [address] [address] Securities Adviser: THEODORE GargBC (Bld) [#/Vol]3.93 10*6/uLLow3.95-5.11[facility] CenterComment on above:Performed By: #### CBC, LACTIC #### [address] [address] Securities Adviser: FADY Garg morphology finding Nom (Bld)ANISOCYTOSIS PRESENTNormalUniversity Hospitals Ahuja Medical CenterComment on above:Performed By: #### CBC, LACTIC #### [address] [address] Securities Adviser: HONG GargBC (Bld) [#/Vol]4.9 10*3/uLNormal3.5-11.3MKaiser Permanente San Francisco Medical CenterComment on above:Performed By: #### CBC, LACTIC #### [address] [address] Securities Adviser: Dioni Merlos MDFerritinon 40-59-9613Wpypnfvb [Mass/Vol]164 ng/hCIjdn67 - 150 ng/mLCarilion Roanoke Community HospitalComment on above: FERRITIN Reference Ranges: Adult Males 20 - 60 years: 30 - 400 ng/mL Adult females 17 - 60 years: 13 - 150 ng/mL Adults greater than 60 years: no established reference range Pediatrics: no established reference range Ferritin [Mass/Vol]164 ng/jJZxnj82-126WqsmyUniversity Hospitals Ahuja Medical CenterComment on above:Result Comment: FERRITIN Reference Ranges: Adult Males 20 - 60 years: 30 - 400 ng/mL Adult females 17 - 60 years: 13 - 150 ng/mL Adults greater than 60 years: no established reference range Pediatrics: no established reference rangePerformed By: #### FOZIA, LACTIC #### [address] [address] Securities Adviser: Micheal Garg Binding Cap.on 07-20-2024% Fe Kawkjglbjt03 %Swknjp11-05ZwihkUniversity Hospitals Ahuja Medical CenterComment on above:Performed By: #### FOZIA, LACTIC #### [address] [address] Securities Adviser: Tiffanie Gargn [Mass/Vol]35 ug/lEUzc66-755TbxpwUniversity Hospitals Ahuja Medical CenterComment on above:Performed By: #### FOZIA, LACTIC #### [address] [address] Securities Adviser: Kate Gargtal Fe Binding Iex263 ug/fGXat588-404IurgkUniversity Hospitals Ahuja Medical CenterComment on above:Performed By: #### CBC, LACTIC #### [address] [address] Securities Adviser: Dioni Merlos MDUnbound Fe Bind Agn872 ug/uMFkrahy961-696NgvttUniversity Hospitals Ahuja Medical CenterComment on above:Performed By: #### FOZIA, LACTIC #### [address] [phone] Securities Adviser: Micheal Garg and TIBCon 74-45-7082Sspn [Mass/Vol]35 ug/dLLow37 - 145 ug/dLBon [facility]tering Health DaytonIron binding capacity [Mass/Vol] 177 ug/tEAgh581 - 450 ug/dLBon [facility] DaytonIron saturation [Mass fraction]20 %20 - 55 %Bon [facility] DjzvbgFMBH542 ug/dL112 - 347 ug/dLBon [facility] DaytonLactic Acidon 76-18-6982Mcqcau Acid, Whole Blood0.7 mmol/L 0.7 - 2.1 mmol/LBon [facility] SystemLactic Acid,Whole Bl0.7 mmol/LNormal0.7-2.1MKaiser Permanente San Francisco Medical CenterComment on above:Performed By: #### LACTIC #### [facility] [address] [place], [place] [id number] Securities Adviser: Juliet Gargctic Acid, Whole Blood1.4 mmol/L0.7 - 2.1 mmol/LBon [facility]ings Health SystemLactic Acid,Whole Bl1.4 mmol/LNormal0.7-2.1MKaiser Permanente San Francisco Medical CenterComment on above:Performed By: #### CRP #### [facility] [address] [place], [place] [phone] Securities Adviser: Chris Garggnesiumon 33-00-0850Kfsdqlldi [Mass/Vol]1.7 mg/dL1.6 - 2.6 mg/dLBon [facility] SystemMagnesium [Mass/Vol]1.7 mg/dLNormal1.6-2.6MercJerold Phelps Community HospitalComment on above:Performed By: #### CBC, LACTIC #### [facility] [address] [place] [phone] Securities Adviser: Dioni Merlos MDNo Panel Informationon 36-30-3151Qmkljgdvkakzss and review of laboratory resultsAbnormalBon [facility] Health SystemSedimentation Rateon 54-80-8470XPJ Photometric method (Bld) [Velocity]14Bon [facility] SystemSedimentation Rate14 mm/HrNormal0-20University Hospitals Ahuja Medical CenterComment on above:Performed By: #### CBC, LACTIC #### [facility] [phone] Securities Adviser: LA GargR ABDOMEN (KUB) (SINGLE AP VIEW)on [id number] ABDOMEN (KUB) (SINGLE AP VIEW)EXAMINATION: ONE SUPINE [...] Signed by: Kiko Alba MD 07/20/24 Final resultNormalUniversity Hospitals Ahuja Medical CenterXR Abdomen Single viewon 95-59-7371Ckcaeak small bowel loops seen in left upper [...] seen throughout the colon excluding complete obstruction. [facility] Double DoodsTwin County Regional HealthcareRadiology Study observation (narrative)[facility] Odimax [facility] HospitalXR Abdomen Single viewOrdered By: Kiko Alba on [id number] [facility] Double Doods urturn Work Phone: [phone]-Cxhavugr Proteinon 17-60-1291VTX High sensitivity method [Mass/Vol]30.2 mg/LHigh0.0 - 5.0 mg/LBon [facility] Interpretation and review of laboratory resultsAbnormalSentara Halifax Regional HospitalCRP [Mass/Vol]30.2 mg/LHigh0.0-5.0University Hospitals Ahuja Medical CenterComment on above:Performed By: #### CBC, LACTIC #### [facility] [address] [place] [address] Securities Adviser: Dioni Merlos [facility] with Auto Differentialon 95-67-7332Ihhpdkogt (Bld) [#/Vol][facility] HospitalBasophils/100 WBC (Bld)0 %0 - 2 %[facility] HospitalEosinophils (Bld) [#/Vol][facility] Eosinophils/100 WBC (Bld)0 %Low1 - 4 %[facility] HospitalErythrocyte distribution width (RBC) [Ratio]16.0 %High11.8 - 14.4 %[facility] Hematocrit (Bld) [Volume fraction]42.3 %36.3 - 47.1 %[facility] Hemoglobin (Bld) [Mass/Vol]14.1 g/dL11.9 - 15.1 g/dLBon [facility] Immature granulocytes (Bld) [#/Vol]Bon [facility] DaytonImmature granulocytes/100 WBC (Bld)0 %0Bon [facility] DaytonInterpretation and review of laboratory resultsAbnormalBon SecAvita Health System Bucyrus HospitalLymphocytes/100 WBC (Bld)18 %Low24 - 43 %[facility] HospitalLymphocytes/100 WBC (Bld)1.54 %Mary Washington HealthcareH (RBC) [Entitic mass]27.8 pg25.2 - 33.5 pgBon Community Regional Medical CenterHC (RBC) [Mass/Vol]33.3 g/dL28.4 - 34.8 g/dLBon Community Regional Medical CenterV (RBC) [Entitic vol]83.3 fL82.6 - 102.9 fLCarilion Roanoke Community HospitalMonocytes/100 WBC (Bld)8 %3 - 12 %[facility] HospitalMonocytes/100 WBC (Bld)0.72 %[facility] HospitalNeutrophils/100 WBC (Bld)74 %High36 - 65 %[facility] HospitalNucleated RBC/100 WBC (Bld) [Ratio]0.0 %0.0 per 100 WBCBon [facility] DaytonPlatelet mean volume (Bld) [Entitic vol]9.7 fL8.1 - 13.5 fLCarilion Roanoke Community HospitalPlatelets (Bld) [#/Vol]384 10*3/uLBon [facility] DaytonRBC (Bld) [#/Vol]5.08 10*6/uL3.95 - 5.11 m/uLBon [facility] DaytonRBC (Bld) [#/Vol] ANISOCYTOSIS PRESENTBon [facility] DaytonSegmented neutrophils/100 WBC (Bld) 6.44 %[facility] HospitalWBC other (Bld) [#/Vol]8.8Bon [facility] Bon [facility] with Diffon 12-29-8852Qms. Basophil<0.03Normal 0.00-0.20University Hospitals Ahuja Medical CenterComment on above:Performed By: #### CBC, LACTIC #### [address] [address] Securities Adviser: Ruba Garg. Eosinophil<0.82Hpsmlr9.00-0.44University Hospitals Ahuja Medical CenterComment on above:Performed By: #### CBC, LACTIC #### [address] [address] Securities Adviser: MDAbs. BritanyImm.Granulocyte<0.54Xusmku5.00-0.30University Hospitals Ahuja Medical CenterComment on above:Performed By: #### FOZIA, LACTIC #### [address] [address] Securities Adviser: Ruba Garg.Neutrophil (Seg)6.44 k/uLNormal1.50-8.10 [facility] Hospitals Ahuja Medical CenterComment on above:Performed By: #### CBC, LACTIC #### [address] [address] Securities Adviser: Dioin Merlos MDBasophils/100 WBC (Bld)0 %Normal0-2MKaiser Permanente San Francisco Medical CenterComment on above:Performed By: #### CBC, LACTIC #### [address] [address] Securities Adviser: Dioni Merlos MDEosinophils/100 WBC (Bld)0 %Low1-4University Hospitals Ahuja Medical CenterComment on above:Performed By: #### CBC, LACTIC #### [address] [address] Securities Adviser: Dioni Merlos MDErythrocyte distribution width (RBC) [Ratio]16.0 %High11.8-14.4[facility]ville Medical CenterComment on above:Performed By: #### CBC, LACTIC #### [address] [address] Securities Adviser: Dioni Merlos MDHematocrit (Bld) [Volume fraction]42.3 %Normal 36.3-47.1MKaiser Permanente San Francisco Medical CenterComment on above:Performed By: #### CBC, LACTIC #### [address] [address] Securities Adviser: Dioni Merlos MDHemoglobin (Bld) [Mass/Vol]14.1 g/dLNormal 11.9-15.1MKaiser Permanente San Francisco Medical CenterComment on above:Performed By: #### CBC, LACTIC #### [address] [address] Securities Adviser: Johanny Gargmature granulocytes/100 WBC (Bld)0 %Normal0 University Hospitals Ahuja Medical CenterComment on above:Performed By: #### CBC, LACTIC #### [address] [address] Securities Adviser: Dioni Merlos MDLymphocytes (Bld) [#/Vol]1.54 10*3/uLNormal 1.10-3.70University Hospitals Ahuja Medical CenterComment on above:Performed By: #### CBC, LACTIC #### [address] [address] Securities Adviser: Dereck Gargmphocytes/100 WBC (Bld)18 %Wxs02-14TnpibUniversity Hospitals Ahuja Medical CenterComment on above:Performed By: #### CBC, LACTIC #### [address] [address] Securities Adviser: JAN GargCH (RBC) [Entitic mass]27.8 tuZllefo34.2-33.5 [facility] Hospitals Ahuja Medical CenterComment on above:Performed By: #### CBC, LACTIC #### [address] [address] Securities Adviser: JAN GargCHC (RBC) [Mass/Vol]33.3 g/wLFmdarf75.4-34.8 [facility] Ahuja Medical CenterComment on above:Performed By: #### CBC, LACTIC #### [place] [address] Securities Adviser: JAN GargCV (RBC) [Entitic vol]83.3 fBUlccin82.6-102.9 [facility] Ahuja Medical CenterComment on above:Performed By: #### CBC, LACTIC #### [place] [address] Securities Adviser: JAN Gargonocytes (Bld) [#/Vol]0.72 10*3/uLNormal 0.10-1.20[facility] Hospitals Ahuja Medical CenterComment on above:Performed By: #### CBC, LACTIC #### [place] [address] Securities Adviser: JAN Gargonocytes/100 WBC (Bld)8 %Normal3-12University Hospitals Ahuja Medical CenterComment on above:Performed By: #### CBC, LACTIC #### [place] [address] Securities Adviser: Dioni Merlos MDNeutrophil (Seg)74 %Fcho63-52CtmbzUniversity Hospitals Ahuja Medical CenterComment on above:Performed By: #### CBC, LACTIC #### [address] [address] Securities Adviser: Dioni Merlos MDNRBC Automated0.0 per 100 WBCNormal0.0University Hospitals Ahuja Medical CenterComment on above:Performed By: #### CBC, LACTIC #### [address] [address] [place] [address] Securities Adviser: RACHID Garglatelet mean volume (Bld) [Entitic vol]9.7 fL Normal8.1-13.5University Hospitals Ahuja Medical CenterComment on above:Performed By: #### CBC, LACTIC #### [address] [address] Securities Adviser: Dioni Merlos MDPlatelets (Bld) [#/Vol]384 10*3/cNFmpaux334-234 [facility] Ahuja Medical CenterComment on above:Performed By: #### CBC, LACTIC #### [address] [address] Securities Adviser: THEODORE GargBC (Bld) [#/Vol]5.08 10*6/uLNormal3.95-5.11 [facility] Ahuja Medical CenterComment on above:Performed By: #### CBC, LACTIC #### [address] [address] Securities Adviser: FADY Garg morphology finding Nom (Bld)ANISOCYTOSIS PRESENTNormalUniversity Hospitals Ahuja Medical CenterComment on above:Performed By: #### CBC, LACTIC #### [address] [address] Securities Adviser: HONG GargBC (Bld) [#/Vol]8.8 10*3/uLNormal3.5-11.3MKaiser Permanente San Francisco Medical CenterComment on above:Performed By: #### CBC, LACTIC #### [address] [address] Securities Adviser: ANGIE Gargmarcelo [id number] [Mass/Vol]3.7 g/dL3.5 - 5.2 g/dLBon [facility] DaytonAlbumin/Globulin [Mass ratio]1.1 {ratio}1.0 - 2.5Bon [facility] Mary'S HospitalPhorestALP [Catalytic activity/Vol]94 U/L35 - 104 U/LBon St. Mary'S HospitalSeamless [facility] HospitalALT [Catalytic activity/Vol]9 U/LLow10 - 35 U/LBon St. Mary'S HospitalSeamless [facility] HospitalAnion gap [Moles/Vol]13 mmol/L9 - 16 mmol/LBon St. Mary'S HospitalPhorest AST [Catalytic activity/Vol]19 U/L10 - 35 U/LBon St. Mary'S HospitalSeamless [facility] HospitalComment on above:Specimen hemolysis has exceeded the interference as defined by Luis. Value may be falsely increased. Suggest recollection if clinically indicated. Bilirubin [Mass/Vol]0.3 mg/dL0.0 - 1.2 mg/dLBon St. Mary'S HospitalPhorestCalcium [Mass/Vol]9.5 mg/dL8.6 - 10.4 mg/dLBon St. Mary'S HospitalPhorestChloride [Moles/Vol] 98 mmol/L98 - 107 mmol/LBon St. Mary'S HospitalPhorestCO2 [Moles/Vol]26 mmol/L20 - 31 mmol/LBon St. Mary'S HospitalPhorestCreatinine [Mass/Vol]0.5 mg/dLLow0.6 - 0.9 mg/dL Bon [facility]S HospitalPhorestEst, Glom Filt Rate- PINFBon St. Mary'S HospitalPhorestComment on above: These results are not intended [...] that affects renal tubular secretion. Glucose [Mass/Vol]104 mg/sDNuyq87 - 99 mg/dLBon [address] Interpretation and review of laboratory resultsAbnormalBon [facility] [employer] Potassium [Moles/Vol]3.5 mmol/LLow3.7 - 5.3 mmol/LBon [address] Comment on above:Specimen hemolysis has exceeded the interference as defined by Luis. Value may be falsely increased. Suggest recollection if clinically indicated. Protein [Mass/Vol]7.1 g/dL6.6 - 8.7 g/dLBon Secours Mercy HealthSodium [Moles/Vol]137 mmol/L136 - 145 mmol/LBon [facility] HealthUrea nitrogen [Mass/Vol]6 mg/dL6 - 20 mg/dLBon [facility] HealthCT ABDOMEN PELVIS W IV CONTRASTon 78-57-8863ML ABDOMEN PELVIS W IV CONTRASTEXAMINATION: CT OF [...] Signed by: Enrike Rodriges MD 07/19/24 Final resultNormalUniversity Hospitals Ahuja Medical CenterCT Abdomen and Pelvis W contrast Bette 56-55-5548Cfmpfbbvijpibg dilated small bowel upstream from a long segment small bowel stricture with wall thickening and perienteric inflammatory change. Findings consistent with partial obstruction There are several interloop fluid collections as described likely representing abscesses. Moderate volume of free fluid also noted in the pelvis. [facility] RIS CONSOLIDATEDEXAMINATION: CT OF THE ABDOMEN AND [...] free fluid also noted in the pelvis. [facility] HospitalRadiology Study observation (narrative)[facility] HospitalCogniK [facility] Abdomen and Pelvis W contrast IVOrdered By: Enrike Rodriges on 07-19-2024 Miguel Christianson [facility] Work Phone: Comp Metabolic Profon 10-50-7966Nvswnrh [Mass/Vol]3.7 g/dLNormal3.5-5.2MKaiser Permanente San Francisco Medical CenterComment on above:Performed By: #### CBC, LACTIC #### [facility] [address] [place] [address] Securities Adviser: Dioni Merlos MDAlbumin/Glob Ratio1.2Vgiyor6.0-2.5University Hospitals Ahuja Medical CenterComment on above:Performed By: #### CBC, LACTIC #### [facility] [address] [place] [address] Securities Adviser: Dioni Merlos MDAlkaline Phos94 U/QZlhogl44-136RinvcUniversity Hospitals Ahuja Medical CenterComment on above:Performed By: #### CBC, LACTIC #### [facility] [address] [place] [address] Securities Adviser: Dioni Merlos MDALT [Catalytic activity/Vol]9 U/NCez53-59VucfbUniversity Hospitals Ahuja Medical CenterComment on above:Performed By: #### CBC, LACTIC #### [facility] [address] [place] [address] Securities Adviser: Dioni Merlos MDAnion gap [Moles/Vol]13 mmol/LNormal9-16[facility] Ahuja Medical CenterComment on above:Performed By: #### CBC, LACTIC #### [facility] [address] [place] [address] Securities Adviser: Dioni Merlos MDAST [Catalytic activity/Vol]19 U/WCncctr34-09 [facility] Ahuja Medical CenterComment on above:Result Comment: Specimen hemolysis has exceeded the interference as defined by Luis. Value may be falsely increased. Suggest recollection if clinically indicated.Performed By: #### CBC, LACTIC #### [facility] [address] [place] [address] Securities Adviser: Dioni Merlos MDBilirubin [Mass/Vol]0.3 mg/dLNormal0.0-1.2MKaiser Permanente San Francisco Medical CenterComment on above:Performed By: #### CBC, LACTIC #### [facility] [address] [place] [address] Securities Adviser: ANGIE Gargalcium [Mass/Vol]9.5 mg/dLNormal8.6-10.4[facility] Ahuja Medical CenterComment on above:Performed By: #### CBC, LACTIC #### [facility] [address] [place] [address] Securities Adviser: ANGIE Garghloride [Moles/Vol]98 mmol/AQrctup28-433BesdqUniversity Hospitals Ahuja Medical CenterComment on above:Performed By: #### CBC, LACTIC #### [facility] [address] [place] [address] Securities Adviser: Dioni Merlos MDCO2 [Moles/Vol]26 mmol/HFnilvw66-79OmbraUniversity Hospitals Ahuja Medical CenterComment on above:Performed By: #### CBC, LACTIC #### [facility] [address] [place] [address] Securities Adviser: ANGIE Gargreatinine [Mass/Vol]0.5 mg/dLLow0.6-0.9[facility] Ahuja Medical CenterComment on above:Performed By: #### CBC, LACTIC #### [facility] [address] [place] [address] Securities Adviser: Dioni Merlos MDGFR/1.73 sq M.predicted among non-blacks [...] By: #### CBC, LACTIC #### [facility] [address] [place] [address] Securities Adviser: Dioni Merlos MDGlucose [Mass/Vol]104 mg/rTWmkd58-26WnsbnKaiser Permanente San Francisco Medical CenterComment on above:Performed By: #### CBC, LACTIC #### [facility] [address] [place] [address] Securities Adviser: RACHID Gargotassium [Moles/Vol]3.5 mmol/LLow3.7-5.3MKaiser Permanente San Francisco Medical CenterComment on above:Result Comment: Specimen hemolysis has exceeded the interference as defined by Luis. Value may be falsely increased. Suggest recollection if clinically indicated.Performed By: #### CBC, LACTIC #### [facility] [address] [place] [address] Securities Adviser: Dioni Merlos MDProtein [Mass/Vol]7.1 g/dLNormal6.6-8.7[facility] Hospitals Ahuja Medical CenterComment on above:Performed By: #### CBC, LACTIC #### [facility] [address] [place] [phone] Securities Adviser: Dioni Merlos MDSodium [Moles/Vol]137 mmol/XLnqphx123-783UmtfmUniversity Hospitals Ahuja Medical CenterComment on above:Performed By: #### CBC, LACTIC #### [facility] [address] [place] [address] Securities Adviser: Dioni Merlos MDUrea nitrogen [Mass/Vol]6 mg/dLNormal6-20[facility] Ahuja Medical CenterComment on above:Performed By: #### CBC, LACTIC #### [facility] [address] [place] [address] Securities Adviser: Dioni Merlos MDHCG Qualitative, Serumon 83-34-2214EKN ( test) QlNegativeNEGATIVEBon [facility] DaytonComment on above: Specimens with hCG levels near the threshold of the test (25 mIU/mL) may give a negative or indeterminate result. In such cases, another test should be performed with a new specimen in 48-72 hours. If early is suspected clinically in this setting, correlation with quantitative serum b-hCG level is suggested. [facility] HospitalCogniK [facility] has confirmed the use of plasma for this test. This has not been cleared or approved by the U.S. Food and Drug Administration. The FDA has determined that such clearance is not necessary. Bon [facility] DaytonHCG Screen, Bloodon 27-52-5302OVO Screen, BloodNegative NormalNEGMercy Kindred HospitalComment on above:Result Comment: Specimens with hCG levels near the threshold of the test (25 mIU/mL) may give a negative or indeterminate result. In such cases, another test should be performed with a new specimen in 48-72 hours. If early is suspected clinically in this setting, correlation with quantitative serum b-hCG level is suggested. [facility] has confirmed the use of plasma for this test. This has not been cleared or approved by the U.S. Food and Drug Administration. The FDA has determined that such clearance is not necessary.Performed By: #### CBC, LACTIC #### [facility] [address] [place] [phone] Securities Adviser: Dioni Merlos MDLactic Acidon 48-54-4428Tldrug Acid, Whole Blood 1.0 mmol/L0.7 - 2.1 mmol/LBon [facility] Health SystemLactic Acid,Whole Bl1.0 mmol/LNormal0.7-2.1Mer[facility] Kindred HospitalComment on above:Performed By: #### CRP, HCG, LIP, TROPI, CDP, CP #### [facility] [place] [address] Securities Adviser: Dioni Merlos MDLipaseon 98-14-6088Mwqdue [Catalytic activity/Vol]17 U/L13 - 60 U/LBon SecBayne [facility] Hospital HealthLipase [Catalytic activity/Vol]17 U/CVzvwsv56-58YyqsmUniversity Hospitals Ahuja Medical CenterComment on above: Performed By: #### CBC, LACTIC #### [facility] [address] [place], [place] [phone] Securities Adviser: JAN Gargicroscopic Urinalysison 01-97-1780Ytrciavx LM Ql (Urine sed)NoneNoneBon SecBay[facility] Hospital HealthCasts LM.LPF (Urine sed) [#/Area] 10 TO 20 HYALINE Reference range defined for non-centrifuged specimen.Bon [facility] HealthEpithelial cells LM.HPF (Urine sed) [#/Area]10 TO 20Bon SecAvita Health System Bucyrus HospitalMucus Ql (Urine sed)1+Bon [facility] DaytonRBC LM.HPF (Urine sed) [#/Area]5 TO 10Bon [facility] DaytonComment on above:Reference range defined for non-centrifuged specimen.WBC LM.HPF (Urine sed) [#/Area]5 TO 10Bon SecAur[facility] Center– BurlingtonNo Panel Informationon 50-38-7712Nup [facility] DaytonSedimentation Rateon 59-15-8075JOJ Photometric method (Bld) [Velocity]15Bon [facility] Sedimentation Rate15 mm/HrNormal0-20[facility] Ahuja Medical CenterComment on above:Performed By: #### CBC, LACTIC #### [facility] [place], [place] [address] Securities Adviser: Alfredo Garg PCR Batteryon 21-80-7915Qxlctqwt Description.FECESNormalMerFairchild Medical CenterComment on above: Performed By: #### CRP #### [facility] [address] [place] [phone] Securities Adviser: ALICJA Garg w/Reflex Cultureon 83-39-8717Lgoizqrsb, SemiQt,UrNegativeNormalNEGUniversity Hospitals Ahuja Medical CenterComment on above: Performed By: #### CRP, HCG, LIP, TROPI, CDP, CP #### [facility] [address] [place] [address] Securities Adviser: Maty Garg UrineTRACEAbnormalNEGMerFairchild Medical CenterComment on above:Performed By: #### CRP, HCG, LIP, TROPI, CDP, CP #### [facility] [address] [place] [address] Securities Adviser: Dioni Merlos [facility] OKLAHOMA CITYlarity (U)CloudyAbnormalCLEARMercy Kindred HospitalComment on above:Performed By: #### CRP, HCG, LIP, TROPI, CDP, CP #### [facility] [address] [place] [address] Securities Adviser: ANGIE Gargolor (U)YellowNormalYELMerFairchild Medical CenterComment on above:Performed By: #### CRP, HCG, LIP, TROPI, CDP, CP #### [facility] [address] [place] [address] Securities Adviser: Dioni Merlos MDGlucose Ql (U)NegativeNormalNEGMerFairchild Medical CenterComment on above:Performed By: #### CRP, HCG, LIP, TROPI, CDP, CP #### [facility] [address] Securities Adviser: Dioni Merlos MDKetones Ql (U)MODERATEAbnormalNEGMerFairchild Medical CenterComment on above:Performed By: #### CRP, HCG, LIP, TROPI, CDP, CP #### [facility] [address] [place] [phone] Securities Adviser: Dioni Merlos MDLeukocyte esterase Test strip Ql (U)Negative NormalNEGUniversity Hospitals Ahuja Medical CenterComment on above:Performed By: #### CRP, HCG, LIP, TROPI, CDP, CP #### [facility] [address] [place] [phone] Securities Adviser: Deena Gargite,UrNegativeNormalNEGUniversity Hospitals Ahuja Medical CenterComment on above:Performed By: #### CRP, HCG, LIP, TROPI, CDP, CP #### [facility] [address] [place] [phone] Securities Adviser: Dioni Merlos [facility],Ur6.6Tixixy8.0-8.0[facility] Hospitals Ahuja Medical CenterComment on above:Performed By: #### CRP, HCG, LIP, TROPI, CDP, CP #### [facility] [address] [place] [address] Securities Adviser: RACHID Gargrotein Ql (U)TRACEAbnormalOhio State East HospitalComment on above:Performed By: #### CRP, HCG, LIP, TROPI, CDP, CP #### [facility] [address] [place] [address] Securities Adviser: CASS Gargpec. [place],Ur1.376Lbiyvd9.005-1.030[facility]als Ahuja Medical CenterComment on above:Performed By: #### CRP, HCG, LIP, TROPI, CDP, CP #### [facility] [address] [place] [address] Securities Adviser: Dyan Gargbilinogen,UrNormalNormal0.0-1.0[facility] Ahuja Medical CenterComment on above:Performed By: #### CRP, HCG, LIP, TROPI, CDP, CP #### [facility] [address] [place] [phone] Securities Adviser: Dioni Merlos MDUrinalysis with Reflex to Cultureon 07-19-2024 Bilirubin Ql (U)NegativeNEGATIVEBon [facility] HealthClarity (U)Cloudy AbnormalClearBon [facility] HealthColor (U)YellowYellowBon Secours Mercy HealthGlucose Test strip [...] gravity (U) [Rel density]1.0161.005 - 1.030Bon Secjaya [facility] & [facility] HealthUrobilinogen Qn (U)Normal0.0 - 1.0 EU/dLBon Secours [facility] & [facility] HealthBon [facility] HealthUrinalysis,Microon [id number] NONEUniversity Hospitals Ahuja Medical CenterComment on above:Performed By: #### CRP, HCG, LIP, TROPI, CDP, CP #### [facility] [address] [place] [address] Securities Adviser: Dioni Merlos ZRIxvzs06 TO 20 HYALINENormal0-8University Hospitals Ahuja Medical CenterComment on above:Result Comment: Reference range defined for non- centrifuged specimen.Performed By: #### CRP, HCG, LIP, TROPI, CDP, CP #### [facility] [address] [place] [address] [phone] Securities Adviser: Dioni Merlos MDEpithelial cells LM Ql (Urine sed)10 TO 20Normal 0-5University Hospitals Ahuja Medical CenterComment on above:Performed By: #### CRP, HCG, LIP, TROPI, CDP, CP #### [facility] [address] [place] [address] [phone] Securities Adviser: JAN Gargucus Strands1+NormalUniversity Hospitals Ahuja Medical CenterComment on above:Performed By: #### CRP, HCG, LIP, TROPI, CDP, CP #### [facility] [address] [place] [address] Securities Adviser: Apoorva Garg RBC's5 TO 28Nvvsmo8-6NsdseUniversity Hospitals Ahuja Medical CenterComment on above:Result Comment: Reference range defined for non- centrifuged specimen.Performed By: #### CRP, HCG, LIP, TROPI, CDP, CP #### [facility] [address] [place] [address] Securities Adviser: Apoorva Garg WBC's5 TO 98Fshnfm6-9JlhrhUniversity Hospitals Ahuja Medical CenterComment on above:Performed By: #### CRP, HCG, LIP, TROPI, CDP, CP #### [facility] [address] [address] Securities Adviser: Dioni Merlos MDHCG,,Ur-POCon 06-05-2024 HCG,,Ur-POCNegativeNormalNEGFlower HospitalComment on above: Result Comment: HCG screen is sensitive to 25 mIU/mL. However this test may pickling tank operator lower levels of HCG. If further evaluation is needed please request quantitative HCG.Performed By: #### UHCGE #### [facility] [address] [place] [address] Securities Adviser: Wallace Napoles DOPOCT HCG, Prenancy, Uron [id number] HCG ( test) Ql (U)NegativeNEGATIVEBon [facility] DaytonComtr[facility] on above: HCG screen is sensitive to 25 mIU/mL. However this test may pickling tank operator lower levels of HCG. If further evaluation is needed please request quantitative HCG. [facility] PCR [place] [id number] sp PCR NEGATIVE: No Campylobacter spp. (jejuni or coli) DNA DetectedNoalCAMNEGUniversity Hospitals Ahuja Medical CenterComment on above:Performed By: #### CBC, LACTIC #### [facility] [address] [place] [address] Securities Adviser: ZORAN Garg coli enterotox PCRNEGATIVE: No Enterotoxigenic E. coli (ETEC) Heat-labile and heat-stable (LT/ST)NormalEECNEGUniversity Hospitals Ahuja Medical CenterComment on above:Result Comment: DNA DetectedPerformed By: #### CBC, LACTIC #### [facility] [address] [place] [address] Securities Adviser: RACHID Garglesiomonas sp PCRNegativeNocannon memorial hospitalPLEOhio State East HospitalComment on above:Performed By: #### CBC, LACTIC #### [facility] [address] [place] [address] Securities Adviser: CASS Gargalmonella sp PCRNegativeNoAvita Health SystemNEGUniversity Hospitals Ahuja Medical CenterComment on above:Performed By: #### CBC, LACTIC #### [facility] [address] [place] [address] Securities Adviser: Cecilio Garggatoxin gene PCRNegativeNoAtrium Health Wake Forest Baptist Lex[facility] Medical CenterTXNEGUniversity Hospitals Ahuja Medical CenterComment on above:Performed By: #### CBC, LACTIC #### [facility] [address] [place] [address] Securities Adviser: CASS Garghigella sp PCRNegativeNoAmerican Healthcare SystemsNEGUniversity Hospitals Ahuja Medical CenterComment on above:Performed By: #### CBC, LACTIC #### [facility] [address] [place] [address] Securities Adviser: Lila Gargbrio sp PCRNEGATIVE: No Vibrio (V. vulnificus, V, parahaemolyticus and V. cholerae) DNANormalVIBNEGUniversity Hospitals Ahuja Medical CenterComment on above:Result Comment: DetectedPerformed By: #### CBC, LACTIC #### [facility] [address] [place] [address] [phone] Securities Adviser: Eder Garg gene PCRNegativeNormalYERNEGUniversity Hospitals Ahuja Medical CenterComment on above:Performed By: #### CBC, LACTIC #### [facility] [address] [place] [address] [phone] Securities Adviser: Dioni Merlos MDCalprotectin Stoolon 05-34-7750Jepchfbyfpet, Btfyi5358 ug/gHighNINF - 49 ug/gBon [facility] DaytonComtrinity health living[facility] hospital on above:(NOTE) REFERENCE INTERVAL: Calprotectin, Fecal by Immunoassay Less than 50 ug/g.........Normal 50-120 ug/g...............Borderline elevated, test should be re-evaluated in 4-6 weeks. 121 ug/g or greater.......Elevated Performed By: [facility] [address] [place] [address] Die Finisher Forging: Hugo Ramsey MD, PhD CLIA Number: [id number] Interpretation and review of laboratory resultsAbnormalBon [facility] Bon [facility] Health DaytonCalprotectin, Fecalon 11-58-4516Vpivqrshqvsj, Kzuxe0165 ug/gHigh<=49University Hospitals Ahuja Medical CenterComtrinity health livingston hospital on above:Result Comment: (NOTE) REFERENCE INTERVAL: Calprotectin, Fecal by Immunoassay Less than 50 ug/g.........Normal 50-120 ug/g...............Borderline elevated, test should be re-evaluated in 4-6 weeks. 121 ug/g or greater.......Elevated Performed By: [facility] [address] [place] [address] Die Finisher Forging: Hugo Ramsey MD, PhD CLIA Number: [id number] By: #### CRP, HCG, LIP, TROPI, CDP, CP #### [facility] [place], [place] [phone] Securities Adviser: Dioni Merlos MDB12/Folate Panelon 44-22-5918Qhdejloib (Vitamin B12) [Mass/Vol]176 pg/fHXko329-5552WkkmdUniversity Hospitals Ahuja Medical CenterComment on above:Performed By: #### LACTIC #### [facility] [address] [place] [address] Securities Adviser: Lorraine Garg Acid17.7 ng/mLNormal4.8-24.2[facility] Kindred HospitalComment on above:Performed By: #### LACTIC #### [facility] [address] [place] [address] Securities Adviser: ANGIE Garg DIFF TOXIN/ANTIGENon 05-08-2024. difficile glutamate dehydrogenase and toxins A+B IA.rapid Ql (Stl)NegativeNEGATIVECarilion Roanoke Community HospitalComment on above:No C. difficile antigen and Toxin Detected. Specimen Description.FECESBon [facility] SystemC diff Ag + Toxinon 05-08-2024 diff Ag + ToxinNegativeNormalNEGUniversity Hospitals Ahuja Medical CenterComment on above:Result Comment: No C. difficile antigen and Toxin Detected.Performed By: #### LACTIC #### [facility] [address] [place] [phone] Securities Adviser: ANGIE Garg with Auto Differentialon [id number] (Bld) [#/Vol]0.03 10*3/uLCarilion Roanoke Community HospitalBasophils/100 WBC (Bld)0 %0 - 2 %[facility] HospitalEosinophils (Bld) [#/Vol]0.14 10*3/uLBon [facility] DaytonEosinophils/100 WBC (Bld)2 %1 - 4 %[facility] Erythrocyte distribution width (RBC) [Ratio]14.3 %11.8 - 14.4 %[facility] HospitalHematocrit (Bld) [Volume fraction]29.4 %Low36.3 - 47.1 %[facility] HospitalHemoglobin (Bld) [Mass/Vol]8.7 g/dLLow11.9 - 15.1 g/dLBon [facility] DaytonImmature granulocytes (Bld) [#/Vol]0.04 10*3/uLBon [facility] Immature granulocytes/100 WBC (Bld)1 %Bhfi3Dot [facility] Interpretation and review of laboratory resultsAbnormalBon [facility] Lymphocytes/100 WBC (Bld)15 %Low24 - 43 %[facility] HospitalLymphocytes/100 WBC (Bld)1.13 %[facility] Washington HealthcareH (RBC) [Entitic mass]26.3 pg25.2 - 33.5 pgBon [facility] Medical CenterHC (RBC) [Mass/Vol]29.6 g/dL28.4 - 34.8 g/dLBon [facility] Regional Medical CenterV (RBC) [Entitic vol]88.8 fL82.6 - 102.9 fLBon [facility] DaytonMonocytes/100 WBC (Bld)6 %3 - 12 %[facility] Monocytes/100 WBC (Bld)0.49 %[facility] HospitalNeutrophils/100 WBC (Bld)76 %High36 - 65 %[facility] HospitalNucleated RBC/100 WBC (Bld) [Ratio]0.0 % 0.0 per 100 WBCBon [facility] DaytonPlatelet mean volume (Bld) [Entitic vol] 9.7 fL8.1 - 13.5 fLBon [facility] DaytonPlatelets (Bld) [#/Vol]337 10*3/uLBon [facility] DaytonRBC (Bld) [#/Vol]3.31 10*6/uLLow3.95 - 5.11 m/uLBon [facility] DaytonSegmented neutrophils/100 WBC (Bld)5.81 %[facility] WBC other (Bld) [#/Vol]7.6Bon SecAurora Medical Center– BurlingtonCBC with Diffon 12-99-3732Gof. Basophil0.03 k/uLNormal0.00-0.20University Hospitals Ahuja Medical CenterComment on above:Performed By: #### LACTIC #### [facility] [address] [place] [address] Securities Adviser: MDAbs. BritanyImm.Granulocyte0.04 k/uLNormal0.00-0.30University Hospitals Ahuja Medical CenterComment on above:Performed By: #### LACTIC #### [address] [address] Securities Adviser: MDAbs. BritanyNeutrophil (Seg)5.81 k/uLNormal1.50-8.10 [facility] Ahuja Medical CenterComment on above:Performed By: #### LACTIC #### [address] [address] Securities Adviser: Dioni Merlos MDBasophils/100 WBC (Bld)0 %Normal0-2MKaiser Permanente San Francisco Medical CenterComment on above:Performed By: #### LACTIC #### [address] [address] Securities Adviser: Dioni Merlos MDEosinophils (Bld) [#/Vol]0.14 10*3/uLNormal 0.00-0.44University Hospitals Ahuja Medical CenterComment on above:Performed By: #### LACTIC #### [address] [address] Securities Adviser: Dioni Merlos MDEosinophils/100 WBC (Bld)2 %Normal1-4University Hospitals Ahuja Medical CenterComment on above:Performed By: #### LACTIC #### [address] [address] Securities Adviser: Dioni Merlos MDErythrocyte distribution width (RBC) [Ratio]14.3 %Mfkrfs03.8-14.4University Hospitals Ahuja Medical CenterComment on above:Performed By: #### LACTIC #### [address] [address] Securities Adviser: Dioni Merlos MDHematocrit (Bld) [Volume fraction]29.4 %Low 36.3-47.1MKaiser Permanente San Francisco Medical CenterComment on above:Performed By: #### LACTIC #### [address] [address] Securities Adviser: Dioni Merlos MDHemoglobin (Bld) [Mass/Vol]8.7 g/dLLow11.9-15.1 [facility]huja Medical CenterComment on above:Performed By: #### LACTIC #### [address] [address] Securities Adviser: Johanny Gargmature granulocytes/100 WBC (Bld)1 %Upqt6NulbcUniversity Hospitals Ahuja Medical CenterComment on above:Performed By: #### LACTIC #### [place] [address] Securities Adviser: Dioni Merlos MDLymphocytes (Bld) [#/Vol]1.13 10*3/uLNormal 1.10-3.70[facility] Ahuja Medical CenterComment on above:Performed By: #### LACTIC #### [address] [address] Securities Adviser: Dereck Gargmphocytes/100 WBC (Bld)15 %Ozh94-29BrwsjUniversity Hospitals Ahuja Medical CenterComment on above:Performed By: #### LACTIC #### [place] [address] Securities Adviser: JAN GargCH (RBC) [Entitic mass]26.3 miUciuwq04.2-33.5 [facility]huja Medical CenterComment on above:Performed By: #### LACTIC #### [address] [address] Securities Adviser: JAN GargCHC (RBC) [Mass/Vol]29.6 g/jWAugfqi15.4-34.8 [facility]huja Medical CenterComment on above:Performed By: #### LACTIC #### [address] [address] Securities Adviser: JAN GagrCV (RBC) [Entitic vol]88.8 gEJhinmf47.6-102.9 [facility]huja Medical CenterComment on above:Performed By: #### LACTIC #### [address] [address] Securities Adviser: JAN Gargonocytes (Bld) [#/Vol]0.49 10*3/uLNormal 0.10-1.20[facility] Ahuja Medical CenterComment on above:Performed By: #### LACTIC #### [address] [address] Securities Adviser: JAN Gargonocytes/100 WBC (Bld)6 %Normal3-12[facility]als Ahuja Medical CenterComment on above:Performed By: #### LACTIC #### [address] [address] Securities Adviser: Karishma Gargophil (Seg)76 %Tqtp96-86CkpdcUniversity Hospitals Ahuja Medical CenterComment on above:Performed By: #### LACTIC #### [address] [address] Securities Adviser: Dioni Merlos MDNRBC Automated0.0 per 100 WBCNormal0.0[facility]als Ahuja Medical CenterComment on above:Performed By: #### LACTIC #### [address] [address] Securities Adviser: Dioni Merlos MDPlatelet mean volume (Bld) [Entitic vol]9.7 fL Normal8.1-13.5[facility] Hospit[facility] Ahuja Medical CenterComment on above:Performed By: #### LACTIC #### [place] [address] Securities Adviser: Lionel Garg ([facility]) [#/Vol]337 10*3/tWWduubi135-996 [facility]huja Medical CenterComment on above:Performed By: #### LACTIC #### [address] [address] Securities Adviser: THEODORE GargBC (d) [#/Vol]3.31 10*6/uLLow3.95-5.11[facility] Ahuja Medical CenterComment on above:Performed By: #### LACTIC #### [address] [address] Securities Adviser: GIANNA Garg (d) [#/Vol]7.6 10*3/uLNormal3.5-11.3MKaiser Permanente San Francisco Medical CenterComment on above:Performed By: #### LACTIC #### [address] [address] Securities Adviser: Dioni Merlos MDFerritinon 76-71-9138Mukpiojw [Mass/Vol]163 ng/mUWvje35 - 150 ng/mLCarilion Roanoke Community HospitalComment on above: FERRITIN Reference Ranges: Adult Males 20 - 60 years: 30 - 400 ng/mL Adult females 17 - 60 years: 13 - 150 ng/mL Adults greater than 60 years: no established reference range Pediatrics: no established reference range Ferritin [Mass/Vol]163 ng/gYSnue07-939ToruaUniversity Hospitals Ahuja Medical CenterComment on above:Result Comment: FERRITIN Reference Ranges: Adult Males 20 - 60 years: 30 - 400 ng/mL Adult females 17 - 60 years: 13 - 150 ng/mL Adults greater than 60 years: no established reference range Pediatrics: no established reference rangePerformed By: #### LACTIC #### [address] [address] Securities Adviser: Dioni Merlos MDIroandria Binding Cap.on 05-08-2024% Fe Cvaiykbkxo12 %Gey84-00ZqgtmFairchild Medical CenterComment on above:Performed By: #### LACTIC #### [facility] [address] [place] [address] Securities Adviser: Micheal Garg [Mass/Vol]21 ug/aSZnk17-436BmnbaUniversity Hospitals Ahuja Medical CenterComment on above:Performed By: #### LACTIC #### [facility] [address] [place] [address] Securities Adviser: Dioni Merlos MDTotal Fe Binding Fvd203 ug/oRNry410-891SuuriUniversity Hospitals Ahuja Medical CenterComment on above:Performed By: #### LACTIC #### [facility] [address] [place] [address] Securities Adviser: Dioni Merlos MDUnbound Fe Bind Pnb285 ug/wSRdtmot479-709NbkgjUniversity Hospitals Ahuja Medical CenterComment on above:Performed By: #### LACTIC #### [facility] [address] [place] [address] Securities Adviser: Micheal Garg and TIBCon 19-46-8375Edis [Mass/Vol]21 ug/dLLow37 - 145 ug/dLBon [facility] binding capacity [Mass/Vol] 179 ug/pQSmv116 - 450 ug/dLBon [facility] saturation [Mass fraction]12 %Low20 - 55 %Bon [facility] DaytonUIBC158 ug/dL112 - 347 ug/dLBon [facility] DaytonNo Panel Informationon 67-21-2770Cnjgyvydbthbbp and review of laboratory resultsAbnormalRiverside Regional Medical Center Vitamin B12 & Folateon 52-12-1896Mpqkbeoap (Vitamin B12) [Mass/Vol]176 pg/mLLow 232 - 1245 pg/mLCarilion Roanoke Community HospitalFolate [Mass/Vol]17.7 ng/mL4.8 - 24.2 ng/mLCarilion Roanoke Community HospitalInterpretation and review of laboratory results AbnormalBon [facility] SystemBlood Occult Stool Diagnosticon 66-80-1142Mrit, Stool #[id number] [facility] Hemoglobin.gastrointestinal spec 1 Ql (Stl)NegativeNEGATIVEBon [facility] DaytonTime, Stool #1UNKNOWNBon SecAurora Medical Center– BurlingtonC diff Ag + Toxinon 53-87-2842Cqyaojaj Description.FECESNormalMercy Kindred HospitalComment on above:Performed By: #### LACTIC #### [facility] [address] [place], [place] [phone] Securities Adviser: Dioni Merlos [facility] with Auto Differentialon 81-92-1055Sttybhtcb (Bld) [#/Vol]0.03 10*3/uLBon [facility] DaytonBasophils/100 WBC (Bld)0 %0 - 2 %[facility] HospitalEosinophils (Bld) [#/Vol]0.08 10*3/uLBon [facility] DaytonEosinophils/100 WBC (Bld)1 %1 - 4 %[facility] Erythrocyte distribution width (RBC) [Ratio]14.1 %11.8 - 14.4 %[facility] HospitalHematocrit (Bld) [Volume fraction]34.7 %Low36.3 - 47.1 %[facility] HospitalHemoglobin (Bld) [Mass/Vol]10.4 g/dLLow11.9 - 15.1 g/dLBon [facility] DaytonImmature granulocytes (Bld) [#/Vol]0.07 10*3/uLBon [facility] Immature granulocytes/100 WBC (Bld)1 %Dqii2Iem [facility] Interpretation and review of laboratory resultsAbnormalBon [facility] Lymphocytes/100 WBC (Bld)12 %Low24 - 43 %[facility] HospitalLymphocytes/100 WBC (Bld)1.04 %LowBon [facility] Medical CenterH (RBC) [Entitic mass]26.9 pg25.2 - 33.5 pgBon [facility] Medical CenterHC (RBC) [Mass/Vol]30.0 g/dL28.4 - 34.8 g/dLBon Secours Mercy HealthMCV (RBC) [Entitic vol]89.9 fL82.6 - 102.9 fLCarilion Roanoke Community HospitalMonocytes/100 WBC (Bld)5 %3 - 12 %[facility] Monocytes/100 WBC (Bld)0.38 %[facility] HospitalNeutrophils/100 WBC (Bld)81 %High36 - 65 %Bon [facility] DaytonNucleated RBC/100 WBC (Bld) [Ratio]0.0 % 0.0 per 100 WBCBon [facility] DaytonPlatelet mean volume (Bld) [Entitic vol] 9.5 fL8.1 - 13.5 fLBon [facility] DaytonPlatelets (Bld) [#/Vol]409 10*3/uLBon SecAvita Health System Bucyrus HospitalRBC (Bld) [#/Vol]3.86 10*6/uLLow3.95 - 5.11 m/uLBon [facility] DaytonSegmented neutrophils/100 WBC (Bld)6.83 %Bon [facility] WBC other (Bld) [#/Vol]8.4Bon SecAvita Health System Bucyrus HospitalBon [facility] DaytonCBC with Diffon 88-43-9354Pdk. Basophil0.03 k/uLNormal0.00-0.20[facility]ja Medical CenterComment on above:Performed By: #### LACTIC #### [facility] [address] [place] [address] Securities Adviser: MDAbs. BritanyImm.Granulocyte0.07 k/uLNormal0.00-0.30[facility]ja Medical CenterComment on above:Performed By: #### LACTIC #### [facility] [address] [place] [address] Securities Adviser: MDAbs. BritanyNeutrophil (Seg)6.83 k/uLNormal1.50-8.10 [facility] Medical CenterComment on above:Performed By: #### LACTIC #### [facility] [address] [place] [address] Securities Adviser: Dioni Madoff, MDBasophils/100 WBC (Bld)0 %Normal0-2MKaiser Permanente San Francisco Medical CenterComment on above:Performed By: #### LACTIC #### [address] [address] Securities Adviser: Dioni Merlos MDEosinophils (Bld) [#/Vol]0.08 10*3/uLNormal 0.00-0.44[facility] Medical CenterComment on above:Performed By: #### LACTIC #### [address] [address] Securities Adviser: Dioni Merlos MDEosinophils/100 WBC (Bld)1 %Normal1-4[facility] Medical CenterComment on above:Performed By: #### LACTIC #### [place] [address] Securities Adviser: Dioni Merlos MDErythrocyte distribution width (RBC) [Ratio]14.1 %Wcganz38.8-14.4[facility]ja Medical CenterComment on above:Performed By: #### LACTIC #### [place] [address] Securities Adviser: Dioni Merlos MDHematocrit (Bld) [Volume fraction]34.7 %Low 36.3-47.1MKaiser Permanente San Francisco Medical CenterComment on above:Performed By: #### LACTIC #### [address] [address] Securities Adviser: Dioni Merlos MDHemoglobin (Bld) [Mass/Vol]10.4 g/dLLow11.9-15.1 [facility] Medical CenterComment on above:Performed By: #### LACTIC #### [address] [address] Securities Adviser: Dioni Merlos MDImmature granulocytes/100 WBC (Bld)1 %Gjwc7AowhwUniversity Hospitals Ahuja Medical CenterComment on above:Performed By: #### LACTIC #### [place] [address] Securities Adviser: Dereck Gargmphocytes (Bld) [#/Vol]1.04 10*3/uLLow 1.10-3.70[facility] Medical CenterComment on above:Performed By: #### LACTIC #### [place] [address] Securities Adviser: Melvin Garghocytes/100 WBC (Bld)12 %Jsf12-29EdvzgUniversity Hospitals Ahuja Medical CenterComment on above:Performed By: #### LACTIC #### [place] [address] Securities Adviser: JAN GargCH (RBC) [Entitic mass]26.9 tpZvvgsi15.2-33.5 [facility] Medical CenterComment on above:Performed By: #### LACTIC #### [place] [address] Securities Adviser: JAN GargCHC (RBC) [Mass/Vol]30.0 g/bPFbhcaw81.4-34.8 [facility] Medical CenterComment on above:Performed By: #### LACTIC #### [place] [address] Securities Adviser: JAN GargCV (RBC) [Entitic vol]89.9 kEOwdbmz33.6-102.9 [facility] Medical CenterComment on above:Performed By: #### LACTIC #### [place] [address] Securities Adviser: JAN Gargonocytes (Bld) [#/Vol]0.38 10*3/uLNormal 0.10-1.20[facility] Medical CenterComment on above:Performed By: #### LACTIC #### [facility] [address] [place] [address] Securities Adviser: JAN Gargonocytes/100 WBC (Bld)5 %Normal3-12[facility] Medical CenterComment on above:Performed By: #### LACTIC #### [facility] [address] [place] [address] Securities Adviser: Karishma Gargophil (Seg)81 %Qihe22-97ElahoUniversity Hospitals Ahuja Medical CenterComment on above:Performed By: #### LACTIC #### [address] [address] Securities Adviser: GAYATRI Garg Automated0.0 per 100 WBCNormal0.0[facility]ja Medical CenterComment on above:Performed By: #### LACTIC #### [address] [address] Securities Adviser: Latisha Gargtelet mean volume (Bld) [Entitic vol]9.5 fL Normal8.1-13.5[facility]ja Medical CenterComment on above:Performed By: #### LACTIC #### [address] [address] Securities Adviser: RACHID Garglatelets (Bld) [#/Vol]409 10*3/iEUtckrh914-173 [facility] CenterComment on above:Performed By: #### LACTIC #### [facility] [address] [place] [address] Securities Adviser: Dioni Merlos MDRBC (Bld) [#/Vol]3.86 10*6/uLLow3.95-5.11[facility] Medical CenterComment on above:Performed By: #### LACTIC #### [address] [address] Securities Adviser: HONG Garg (Bld) [#/Vol]8.4 10*3/uLNormal3.5-11.3[facility] Kindred HospitalComment on above:Performed By: #### LACTIC #### [address] [address] Securities Adviser: Dioni Merlos MDCult,Fluidon 87-30-6895Ltmz,FluidSpecimen Description .ASPIRATE Special Requests Site: Body Fluid [...] SVIR SUE KRISTIN Method HARPER Penicillin <=0.06 SUSCEPTIBLESusceptibleUniversity Hospitals Ahuja Medical CenterComment on above:Performed By: #### CBC, LACTIC #### [address] [address] Securities Adviser: Dioni Merlos MDOccelena Blood, Fecal 54-47-8587Guaiho Blood 1 NegativeNormalNEGUniversity Hospitals Ahuja Medical CenterComment on above:Performed By: #### CRP, HCG, LIP, TROPI, CDP, CP #### [address] [address] Securities Adviser: Shy Gargimeandria 1 [id number] Hospitals Ahuja Medical CenterComment on above:Performed By: #### CRP, HCG, LIP, TROPI, CDP, CP #### [facility] [address] [place] [address] Securities Adviser: Deepak Garg 1 TimeUNKNOWNNormalUniversity Hospitals Ahuja Medical CenterComment on above:Performed By: #### CRP, HCG, LIP, TROPI, CDP, CP #### [facility] [address] [place] [address] Securities Adviser: Alfredo Garg PCR [place] 65-20-7479Dzhykrkq Description.FECESNormalUniversity Hospitals Ahuja Medical CenterComment on above: Performed By: #### CBC, LACTIC #### [facility] [address] [place] [address] Securities Adviser: Shlomo Garg Metab w/rfx MGon 38-35-3064Rwffbbh [Mass/Vol]8.8 mg/dLNormal8.6-10.4University Hospitals Ahuja Medical CenterComment on above:Performed By: #### CRP, HCG, LIP, TROPI, CDP, CP #### [facility] [address] [place] [address] Securities Adviser: Dioni Merlos MDAnimarcelo gap [Moles/Vol]8 mmol/LLow9-16University [facility]als Ahuja Medical CenterComment on above:Performed By: #### CRP, HCG, LIP, TROPI, CDP, CP #### [facility] [address] [place] [address] Securities Adviser: Dioni Merlos MDChloride [Moles/Vol]108 mmol/NAuxu22-336OgxdiUniversity Hospitals Ahuja Medical CenterComment on above:Performed By: #### CRP, HCG, LIP, TROPI, CDP, CP #### [address] [address] Securities Adviser: Dioni Merlos MDCO2 [Moles/Vol]24 mmol/ZTwqogk75-93XcynhUniversity Hospitals Ahuja Medical CenterComment on above:Performed By: #### CRP, HCG, LIP, TROPI, CDP, CP #### [facility] [address] [place] [address] Securities Adviser: ANGIE Gargreatinine [Mass/Vol]0.5 mg/dLLow0.6-0.9[facility]als Ahuja Medical CenterComment on above:Performed By: #### CRP, HCG, LIP, TROPI, CDP, CP #### [place] [address] Securities Adviser: Dioni Merlos MDGFR/1.73 sq M.predicted among non-blacks [...] CRP, HCG, LIP, TROPI, CDP, CP #### [facility] [address] [place] [address] Securities Adviser: Dioni Merlos MDGlucose [Mass/Vol]99 mg/xETinyfb81-35PyvmoKaiser Permanente San Francisco Medical CenterComment on above:Performed By: #### CRP, HCG, LIP, TROPI, CDP, CP #### [place] [address] Securities Adviser: RACHID Gargotassium [Moles/Vol]4.2 mmol/LNormal3.7-5.3 [facility]huja Medical CenterComment on above:Performed By: #### CRP, HCG, LIP, TROPI, CDP, CP #### [place] [address] Securities Adviser: CASS Gargodium [Moles/Vol]140 mmol/NIckfql222-101PugfeUniversity Hospitals Ahuja Medical CenterComment on above:Performed By: #### CRP, HCG, LIP, TROPI, CDP, CP #### [facility] [address] [place] [address] Securities Adviser: Dioni Merlos MDUrea nitrogen [Mass/Vol]mg/dLLow6-20[facility] Ahuja Medical CenterComment on above:Performed By: #### CRP, HCG, LIP, TROPI, CDP, CP #### [facility] [address] [place] [address] Securities Adviser: Dioni Merlos MDBasic Metabolic Panel w/ Reflex to MGon [id number] gap [Moles/Vol]8 mmol/LLow9 - 16 mmol/LBon St. Mary'S HospitalPhorest Calcium [Mass/Vol]8.8 mg/dL8.6 - 10.4 mg/dLBon St. Mary'S HospitalPhorestChloride [Moles/Vol]108 mmol/LHigh98 - 107 mmol/LBon [address]. Mary'S HospitalPhorestCO2 [Moles/Vol] 24 mmol/L20 - 31 mmol/LBon St. Mary'S HospitalPhorestCreatinine [Mass/Vol]0.5 mg/dLLow 0.6 - 0.9 mg/dLBon St. Mary'S HospitalPhorestEst, Glom Filt Rate- PINFBon St. Mary'S HospitalPhorestComment on above: These results are not intended [...] secretion. Glucose [Mass/Vol]99 mg/dL74 - 99 mg/dLBon St. Mary'S HospitalPhorestInterpretation and review of laboratory resultsAbnormalBon St. Mary'S HospitalPhorestPotassium [Moles/Vol]4.2 mmol/L3.7 - 5.3 mmol/LBon SecPhorestSodium [Moles/Vol] 140 mmol/L136 - 145 mmol/LBon St. Mary'S HospitalPhorestUrea nitrogen [Mass/Vol]mg/dL Low6 - 20 mg/dLBon St. Mary'S HospitalPhorestBon [facility]tering [facility] DaytonCBC with Auto Differentialon [id number] (Bld) [#/Vol]0.05 10*3/uLBon [facility]ours [facility] HealthBasophils/100 WBC (Bld)1 %0 - 2 %[facility] HealthEosinophils (Bld) [#/Vol]0.14 10*3/uLBon [facility] HealthEosinophils/100 WBC (Bld)2 %1 - 4 % [facility] HealthErythrocyte distribution width (RBC) [Ratio]14.0 %11.8 - 14.4 %[facility] HospitalHematocrit (Bld) [Volume fraction]30.8 %Low36.3 - 47.1 %[facility] HospitalHemoglobin (Bld) [Mass/Vol]9.4 g/dLLow11.9 - 15.1 g/dLBon Secours Guernsey Memorial HospitalImmature granulocytes (Bld) [#/Vol]0.08 10*3/uLBon Secours [facility]ernsey Memorial HospitalImmature granulocytes/100 WBC (Bld)1 %Liqw5Fkw SecBayne Jones Army Community Hospital HealthInterpretation and review of laboratory resultsAbnormalBon SecBayne Jones Army Community Hospital HealthLymphocytes/100 WBC (Bld)12 %Low24 - 43 %[facility] Lymphocytes/100 WBC (Bld)1.15 %[facility] SecPremier HealthH (RBC) [Entitic mass] 27.0 pg25.2 - 33.5 pgBon Secours Kettering Health PrebleHC (RBC) [Mass/Vol]30.5 g/dL28.4 - 34.8 g/dLBon SecPremier HealthV (RBC) [Entitic vol]88.5 fL82.6 - 102.9 fL [facility] HealthMonocytes/100 WBC (Bld)5 %3 - 12 %[facility] HealthMonocytes/100 WBC (Bld)0.52 %[facility] HealthNeutrophils/100 WBC (Bld)79 %High36 - 65 %Bon SecBayne Jones Army Community Hospital HealthNucleated RBC/100 WBC (Bld) [Ratio]0.0 %0.0 per 100 WBCBon SecAvita Health System Bucyrus HospitalPlatelet mean volume (Bld) [Entitic vol]9.5 fL8.1 - 13.5 fLBon Secours [facility] HealthPlatelets (Bld) [#/Vol] 405 10*3/uLBon [facility]tering Health DaytonRBC (Bld) [#/Vol]3.48 10*6/uLLow3.95 - 5.11 m/uLCarilion Roanoke Community HospitalSegmented neutrophils/100 WBC (Bld)7.66 %[facility] HospitalWBC other (Bld) [#/Vol]9.6Bon [facility] SystemCBC with Diffon [id number]. Basophil0.05 k/uLNormal0.00-0.20[facility] Hospitals Ahuja Medical CenterComment on above:Performed By: #### CRP, HCG, LIP, TROPI, CDP, CP #### [place] [address] Securities Adviser: Ruba Garg.Imm.Granulocyte0.08 k/uLNormal0.00-0.30[facility] Ahuja Medical CenterComment on above:Performed By: #### CRP, HCG, LIP, TROPI, CDP, CP #### [facility] [address] [place] [address] Securities Adviser: Ruba Garg.Neutrophil (Seg)7.66 k/uLNormal1.50-8.10 [facility] Ahuja Medical CenterComment on above:Performed By: #### CRP, HCG, LIP, TROPI, CDP, CP #### [facility] [address] [place] [address] Securities Adviser: Dioni Merlos MDBasophils/100 WBC (Bld)1 %Normal0-2MKaiser Permanente San Francisco Medical CenterComment on above:Performed By: #### CRP, HCG, LIP, TROPI, CDP, CP #### [facility] [address] [place] [address] Securities Adviser: Dioni Merlos MDEosinophils (Bld) [#/Vol]0.14 10*3/uLNormal 0.00-0.44[facility] Ahuja Medical CenterComment on above:Performed By: #### CRP, HCG, LIP, TROPI, CDP, CP #### [address] [address] Securities Adviser: Dioni Merlos MDEosinophils/100 WBC (Bld)2 %Normal1-4[facility] Ahuja Medical CenterComment on above:Performed By: #### CRP, HCG, LIP, TROPI, CDP, CP #### [place] [address] Securities Adviser: Dioni Merlos MDErythrocyte distribution width (RBC) [Ratio]14.0 %Folxdd51.8-14.4[facility] Ahuja Medical CenterComment on above:Performed By: #### CRP, HCG, LIP, TROPI, CDP, CP #### [place] [address] Securities Adviser: Dioni Merlos MDHematocrit (Bld) [Volume fraction]30.8 %Low 36.3-47.1MKaiser Permanente San Francisco Medical CenterComment on above:Performed By: #### CRP, HCG, LIP, TROPI, CDP, CP #### [address] [address] Securities Adviser: Dioni Merlos MDHemoglobin (Bld) [Mass/Vol]9.4 g/dLLow11.9-15.1 [facility]huja Medical CenterComment on above:Performed By: #### CRP, HCG, LIP, TROPI, CDP, CP #### [address] [address] Securities Adviser: Dioni Merlos MDImmature granulocytes/100 WBC (Bld)1 %Xxpt3ZqbbeUniversity Hospitals Ahuja Medical CenterComment on above:Performed By: #### CRP, HCG, LIP, TROPI, CDP, CP #### [facility] [address] [place] [address] Securities Adviser: Dioni Merlos MDLymphocytes (Bld) [#/Vol]1.15 10*3/uLNormal 1.10-3.70[facility] Ahuja Medical CenterComment on above:Performed By: #### CRP, HCG, LIP, TROPI, CDP, CP #### [address] [address] Securities Adviser: Dereck Gargmphocytes/100 WBC (Bld)12 %Sur06-17JwbkbUniversity Hospitals Ahuja Medical CenterComment on above:Performed By: #### CRP, HCG, LIP, TROPI, CDP, CP #### [place] [address] Securities Adviser: JAN GargCH (RBC) [Entitic mass]27.0 kaHfnjal04.2-33.5 [facility]huja Medical CenterComment on above:Performed By: #### CRP, HCG, LIP, TROPI, CDP, CP #### [place] [address] Securities Adviser: JAN GargCHC (RBC) [Mass/Vol]30.5 g/mQHsoxjy11.4-34.8 [facility]ja Medical CenterComment on above:Performed By: #### CRP, HCG, LIP, TROPI, CDP, CP #### [facility] [address] [place] [address] Securities Adviser: JAN GargCV (RBC) [Entitic vol]88.5 xMXxzvar17.6-102.9 [facility]ja Medical CenterComment on above:Performed By: #### CRP, HCG, LIP, TROPI, CDP, CP #### [facility] [address] [place] [address] Securities Adviser: JAN Gargonocytes (Bld) [#/Vol]0.52 10*3/uLNormal 0.10-1.20[facility]ja Medical CenterComment on above:Performed By: #### CRP, HCG, LIP, TROPI, CDP, CP #### [facility] [address] [place] [address] Securities Adviser: JAN Gargonocytes/100 WBC (Bld)5 %Normal3-12[facility]huja Medical CenterComment on above:Performed By: #### CRP, HCG, LIP, TROPI, CDP, CP #### [facility] [address] [place] [address] Securities Adviser: Laly Garg (Seg)79 %Swqb29-80AuijpUniversity Hospitals Ahuja Medical CenterComment on above:Performed By: #### CRP, HCG, LIP, TROPI, CDP, CP #### [address] [address] Securities Adviser: Dioni Merlos MDNRBC Automated0.0 per 100 WBCNormal0.0[facility] Ahuja Medical CenterComment on above:Performed By: #### CRP, HCG, LIP, TROPI, CDP, CP #### [facility] [address] [place] [address] Securities Adviser: Natalia Garg mean volume (Bld) [Entitic vol]9.5 fL Normal8.1-13.5[facility] Ahuja Medical CenterComment on above:Performed By: #### CRP, HCG, LIP, TROPI, CDP, CP #### [facility] [address] [place] [address] Securities Adviser: Lionel Garg (Bld) [#/Vol]405 10*3/jMGieilq168-202 [facility] Medical CenterComment on above:Performed By: #### CRP, HCG, LIP, TROPI, CDP, CP #### [facility] [address] [place] [phone] Securities Adviser: THEODORE Garg (d) [#/Vol]3.48 10*6/uLLow3.95-5.11[facility] Kindred HospitalComment on above:Performed By: #### CRP, HCG, LIP, TROPI, CDP, CP #### [facility] [address] [place], [place] [phone] Securities Adviser: HONG Garg ([facility]) [#/Vol]9.6 10*3/uLNormal3.5-11.3MercJerold Phelps Community HospitalComment on above:Performed By: #### CRP, HCG, LIP, TROPI, CDP, CP #### [facility] [address] [place] [address] Securities Adviser: Dioni Merlos MDCT ABDOMEN PELVIS WO CONTRASTon [id number] ABDOMEN PELVIS WO CONTRASTEXAMINATION: CT OF THE [...] Signed by: Willie Reid MD 05/06/24 Final resultNormalMerFairchild Medical CenterCT Abdomen and Pelvis WO contraston . Stable small bowel and colonic inflammatory changes and adynamic ileus. No evidence of a bowel leak. 2. Stable to slightly improved multiloculated pelvic abscesses. [facility] RIS CONSOLIDATEDEXAMINATION: CT OF THE ABDOMEN AND [...] Stable to slightly improved multiloculated pelvic abscesses. [facility] HospitalRadiology Study observation (narrative)[facility] HospitalDynamics Expert [facility] HospitalCogniK [facility] HospitalCT Abdomen and Pelvis WO contrastOrdered By: Willie Reid on 05-06-2024 [facility] Work Phone: Cult,Bloodon [id number],BloodSpecimen Description .BLOOD Special Requests LFT AC 10ML Culture NO GROWTH 5 DAYS Report Status FINAL 05/06/2024[facility] HospitalComment on above:Performed By: #### CRP, HCG, LIP, TROPI, CDP, CP #### [facility] [address] [place], [place] [phone] Securities Adviser: Dioni Merlos [facility] OK[facility] CITYult,BloodSpecimen Description .BLOOD Special Requests RAC 5ML Culture NO GROWTH 5 DAYS Report Status FINAL 05/06/2024[facility]ost[facility] Community HospitalComment on above:Performed By: #### CBC, LACTIC #### [facility] [address] [place], [place] [phone] Securities Adviser: ANGIE Gargulture, Blood 1on [id number] identified Cx Nom (Unsp spec)NO GROWTH 5 DAYSBon Secours Mercy HealthService comment (Unsp spec) [Interp]LFT AC 10MLBon Secours [facility] HealthSpecimen Description.BLOODBon Secours [facility]y [facility] HospitalBon [facility]ours [facility]y HealthMicroorganism identified Cx Nom (Unsp spec)NO GROWTH 5 DAYSBon Secours [facility] HealthService comment (Unsp spec) [Interp]RAC 5MLBon [facility] HealthSpecimen Description .BLOODBon Secours [facility] Hospitaly HealthBon Secours [facility]y HealthBasic Metabolic Panelon [id number] gap [Moles/Vol]11 mmol/L9 - 16 mmol/LBon [facility] Calcium [Mass/Vol]8.6 mg/dL8.6 - 10.4 mg/dLBon Secours [facility]cy HealthChloride [Moles/Vol]108 mmol/LHigh98 - 107 mmol/LBon Secours [facility] HealthCO2 [Moles/Vol] 19 mmol/LLow20 - 31 mmol/LBon [facility] DaytonCreatinine [Mass/Vol]0.5 mg/dL Low0.6 - 0.9 mg/dLBon [facility] DaytonEst, Glom Filt Rate- PINFBon [facility]tering Health DaytonComment on above: These results are not intended [...] that affects renal tubular secretion. Glucose [Mass/Vol]113 mg/iZIbdp25 - 99 mg/dLBon [facility] Interpretation and review of laboratory resultsAbnormBon [facility] Potassium [Moles/Vol]3.2 mmol/LLow3.7 - 5.3 mmol/LBon [facility] DaytonSodium [Moles/Vol]138 mmol/L136 - 145 mmol/LBon [facility] DaytonUrea nitrogen [Mass/Vol]mg/dLLow6 - 20 mg/dLBon [facility] Basic Metabolic Profon 96-04-2621Ejabz gap [Moles/Vol]11 mmol/LNormal9-16[facility]ja Medical CenterComment on above:Performed By: #### CBC, LACTIC #### [facility] [address] [place] [address] Securities Adviser: ANGIE Gargalcium [Mass/Vol]8.6 mg/dLNormal8.6-10.4[facility]huja Medical CenterComment on above:Performed By: #### CBC, LACTIC #### [facility] [place] [address] Securities Adviser: ANGIE Garghloride [Moles/Vol]108 mmol/QOjry14-641HxgzzUniversity Hospitals Ahuja Medical CenterComment on above:Performed By: #### CBC, LACTIC #### [facility] [address] [place] [address] Securities Adviser: Dioni Merlos MDCO2 [Moles/Vol]19 mmol/QJqi10-64CzslzUniversity Hospitals Ahuja Medical CenterComment on above:Performed By: #### CBC, LACTIC #### [facility] [address] [place] [address] Securities Adviser: ANGIE Gargreatinine [Mass/Vol]0.5 mg/dLLow0.6-0.9[facility]ja Medical CenterComment on above:Performed By: #### CBC, LACTIC #### [facility] [address] [place] [address] Securities Adviser: Dioni Merlos MDGFR/1.73 sq M.predicted among non-blacks [...] By: #### CBC, LACTIC #### [facility] [address] [place] [address] Securities Adviser: Dioni Merlos MDGlucose [Mass/Vol]113 mg/lKTtvy90-39NhrxhKaiser Permanente San Francisco Medical CenterComment on above:Performed By: #### CBC, LACTIC #### [facility] [address] [place] [address] Securities Adviser: RACHID Gargotassium [Moles/Vol]3.2 mmol/LLow3.7-5.3MKaiser Permanente San Francisco Medical CenterComment on above:Performed By: #### CBC, LACTIC #### [facility] [address] [place] [address] Securities Adviser: CASS Gargodium [Moles/Vol]138 mmol/XQwplpe950-018ZeslbUniversity Hospitals Ahuja Medical CenterComment on above:Performed By: #### CBC, LACTIC #### [facility] [address] [place] [address] Securities Adviser: Dioni Merlos MDUrea nitrogen [Mass/Vol]mg/dLLow6-20[facility]ja Medical CenterComment on above:Performed By: #### CBC, LACTIC #### [facility] [address] [place] [address] Securities Adviser: Dioni Merlos [facility] – OKLAHOMA CITYBC with Auto Differentialon [id number] (Bld) [#/Vol]0.04 10*3/uLBon Secours Mercy HealthBasophils/100 WBC (Bld)0 %0 - 2 %[facility] HealthEosinophils (Bld) [#/Vol]0.25 10*3/uLBon Secours [facility] HealthEosinophils/100 WBC (Bld)2 %1 - 4 %[facility] Erythrocyte distribution width (RBC) [Ratio]14.0 %11.8 - 14.4 %[facility] HealthHematocrit (Bld) [Volume fraction]32.4 %Low36.3 - 47.1 %[facility] HospitalHemoglobin (Bld) [Mass/Vol]9.8 g/dLLow11.9 - 15.1 g/dLBon Secours [facility] HospitalImmature granulocytes (Bld) [#/Vol]0.09 10*3/uLBon [facility] Immature granulocytes/100 WBC (Bld)1 %Xhtx3Gmy Secours [facility]y [facility] Interpretation and review of laboratory resultsAbnormalBon [facility] Lymphocytes/100 WBC (Bld)7 %Low24 - 43 %[facility] HospitalLymphocytes/100 WBC (Bld)0.82 %LowBon Secours [facility] Hospitaly [facility] HospitalH (RBC) [Entitic mass]26.6 pg25.2 - 33.5 pgBon Secours [facility] Hospitaly [facility] HospitalHC (RBC) [Mass/Vol]30.2 g/dL28.4 - 34.8 g/dLBon Community Regional Medical CenterV (RBC) [Entitic vol]87.8 fL82.6 - 102.9 fLBon [facility] DaytonMonocytes/100 WBC (Bld)6 %3 - 12 %Bon [facility] Monocytes/100 WBC (Bld)0.72 %Bon [facility] DaytonNeutrophils/100 WBC (Bld)84 %High36 - 65 %Bon [facility] DaytonNucleated RBC/100 WBC (Bld) [Ratio]0.0 % 0.0 per 100 WBCBon [facility] Health DaytonPlatelet mean volume (Bld) [Entitic vol] 9.2 fL8.1 - 13.5 fLBon [facility] DaytonPlatelets (Bld) [#/Vol]366 10*3/uLBon [facility] DaytonRBC (Bld) [#/Vol]3.69 10*6/uLLow3.95 - 5.11 m/uLBon [facility] DaytonSegmented neutrophils/100 WBC (Bld)10.26 %HighBon [facility] Health DaytonWBC other (Bld) [#/Vol]12.2HighBon Brookings Health SystemCBC with Diffon [id number]. Basophil0.04 k/uLNormal0.00-0.20[facility]huja Medical CenterComment on above:Performed By: #### CBC, LACTIC #### [facility] [address] [place] [address] Securities Adviser: Ruba Garg.Imm.Granulocyte0.09 k/uLNormal0.00-0.30[facility] Medical CenterComment on above:Performed By: #### CBC, LACTIC #### [facility] [address] [place] [address] Securities Adviser: Ruba Garg.Neutrophil (Seg)10.26 k/uLHigh1.50-8.10[facility] Medical CenterComment on above:Performed By: #### CBC, LACTIC #### [address] [address] Securities Adviser: Dioni Merlos MDBasophils/100 WBC (Bld)0 %Normal0-2MKaiser Permanente San Francisco Medical CenterComment on above:Performed By: #### CBC, LACTIC #### [address] [address] Securities Adviser: Dioni Merlos MDEosinophils (Bld) [#/Vol]0.25 10*3/uLNormal 0.00-0.44[facility] Medical CenterComment on above:Performed By: #### CBC, LACTIC #### [address] [address] Securities Adviser: Dioni Merlos MDEosinophils/100 WBC (Bld)2 %Normal1-4[facility] Medical CenterComment on above:Performed By: #### CBC, LACTIC #### [place] [address] Securities Adviser: Dioni Merlos MDErythrocyte distribution width (RBC) [Ratio]14.0 %Pemkqu01.8-14.4[facility] Medical CenterComment on above:Performed By: #### CBC, LACTIC #### [place] [address] Securities Adviser: Dioni Merlos MDHematocrit (Bld) [Volume fraction]32.4 %Low 36.3-47.1MKaiser Permanente San Francisco Medical CenterComment on above:Performed By: #### CBC, LACTIC #### [place] [address] Securities Adviser: Dioni Merlos MDHemoglobin (Bld) [Mass/Vol]9.8 g/dLLow11.9-15.1 [facility] Medical CenterComment on above:Performed By: #### CBC, LACTIC #### [address] [address] Securities Adviser: Johanny Gargmature granulocytes/100 WBC (Bld)1 %Hoje3MfpneUniversity Hospitals Ahuja Medical CenterComment on above:Performed By: #### CBC, LACTIC #### [address] [address] Securities Adviser: Dioni Merlos MDLymphocytes (Bld) [#/Vol]0.82 10*3/uLLow 1.10-3.70[facility] Medical CenterComment on above:Performed By: #### CBC, LACTIC #### [address] [address] Securities Adviser: Dereck Gargmphocytes/100 WBC (Bld)7 %Doh72-61QnlwhUniversity Hospitals Ahuja Medical CenterComment on above:Performed By: #### CBC, LACTIC #### [address] [address] Securities Adviser: JAN GargCH (RBC) [Entitic mass]26.6 hjYyivfe46.2-33.5 [facility] CenterComment on above:Performed By: #### CBC, LACTIC #### [address] [address] Securities Adviser: JAN GargCHC (RBC) [Mass/Vol]30.2 g/eYRjwzjd75.4-34.8 [facility] CenterComment on above:Performed By: #### CBC, LACTIC #### [address] [address] Securities Adviser: JAN GargCV (RBC) [Entitic vol]87.8 wGFdhpbq23.6-102.9 [facility] CenterComment on above:Performed By: #### CBC, LACTIC #### [address] [address] Securities Adviser: Dioni Merlos MDMonocytes (Bld) [#/Vol]0.72 10*3/uLNormal 0.10-1.20[facility] CenterComment on above:Performed By: #### CBC, LACTIC #### [address] [address] Securities Adviser: JAN Gargonocytes/100 WBC (Bld)6 %Normal3-12[facility] Medical CenterComment on above:Performed By: #### CBC, LACTIC #### [address] [address] Securities Adviser: Laly Garg (Seg)84 %Skwe70-91VifpvUniversity Hospitals Ahuja Medical CenterComment on above:Performed By: #### CBC, LACTIC #### [address] [address] Securities Adviser: GAYATRI Garg Automated0.0 per 100 WBCNormal0.0[facility] Medical CenterComment on above:Performed By: #### CBC, LACTIC #### [address] [address] Securities Adviser: RACHID Garglatelet mean volume (Bld) [Entitic vol]9.2 fL Normal8.1-13.5[facility] Medical CenterComment on above:Performed By: #### CBC, LACTIC #### [address] [address] Securities Adviser: Dioni Merlos MDPlatelets (Bld) [#/Vol]366 10*3/tJJvgysc753-918 [facility] Medical CenterComment on above:Performed By: #### CBC, LACTIC #### [address] [address] Securities Adviser: Dioni Madoff, MDRBC (Bld) [#/Vol]3.69 10*6/uLLow3.95-5.11[facility] CenterComment on above:Performed By: #### CBC, LACTIC #### [facility] [address] [place] [address] Securities Adviser: Dioni Merlos MDWBC (Bld) [#/Vol]12.2 10*3/uLHigh3.5-11.3[facility]y Kindred HospitalComment on above:Performed By: #### CBC, LACTIC #### [facility] [address] [place] [address] Securities Adviser: JARROD Garg (Potassium)on 87-06-2024Elxxzhezf [Moles/Vol] 3.0 mmol/LLow3.7-5.3MKaiser Permanente San Francisco Medical CenterComment on above:Performed By: #### LACTIC #### [facility] [address] [place] [address] Securities Adviser: Dar Garg Panel Informationon [id number] and review of laboratory resultsAbnormalBon [facility] Health SystemPhosphoruson 90-55-2504Kllczxepq [Mass/Vol]2.4 mg/dLLow2.5 - 4.5 mg/dLBon [facility]tering [facility] DaytonPhosphorus, Inorg.on 84-15-7600Fworyplgfw, Inorg. 2.4 mg/dLLow2.5-4.5[facility] Medical CenterComment on above:Performed By: #### CBC, LACTIC #### [facility] [address] [place] [address] Securities Adviser: Isrrael Gargiumon [id number] and review of laboratory resultsAbnormalBon [facility] DaytonPotassium [Moles/Vol]3.0 mmol/LLow3.7 - 5.3 mmol/LBon SecAur[facility] Vancomycin Level, Randomon [id number] [Mass/Vol]44.1 ug/mLHigh5.0 - 40.0 ug/mLBon SecAvita Health System Bucyrus HospitalComment on above:Higher trough serum vancomycin concentrations of 15-20 ug/mL are recommended for complicated infections such as bacteremia, endocarditis, osteomyelitis, meningitis, and hospital acquired pneumonia. Vancomycin,Randomon 77-47-7288Qvgnicyiau02.1 ug/mLHigh5.0-40.0[facility] Medical CenterComment on above:Result Comment: Higher trough serum vancomycin concentrations of 15-20 ug/mL are recommended for complicated infections such as bacteremia, endocarditis, osteomyelitis, meningitis, and hospital acquired pneumonia.Performed By: #### CBC, LACTIC #### [facility] [address] [phone] Securities Adviser: Dioni Merlos [facility] with Auto Differentialon [id number] (Bld) [#/Vol]0.03 10*3/uLBon Secours [facility] HospitalBasophils/100 WBC (Bld)0 %0 - 2 %[facility] HospitalEosinophils (Bld) [#/Vol]0.18 10*3/uLBon [facility]ours [facility] HospitalEosinophils/100 WBC (Bld)1 %1 - 4 %[facility] urturn Erythrocyte distribution width (RBC) [Ratio]14.0 %11.8 - 14.4 %[facility] HospitalHematocrit (Bld) [Volume fraction]30.6 %Low36.3 - 47.1 %[facility] urturnHemoglobin (Bld) [Mass/Vol]9.5 g/dLLow11.9 - 15.1 g/dLBon Secours [facility] HospitalImmature granulocytes (Bld) [#/Vol]0.12 10*3/uLBon [facility]ours [facility] urturn Immature granulocytes/100 WBC (Bld)1 %Ftri2Bgg [facility]ours [facility] Interpretation and review of laboratory resultsAbnormalBon [facility]y Health Lymphocytes/100 WBC (Bld)5 %Low24 - 43 %[facility] HospitalLymphocytes/100 WBC (Bld)0.81 %LowBon Secours [facility]cy [facility] HospitalMCH (RBC) [Entitic mass]26.5 pg25.2 - 33.5 pgBon [facility] CenterHC (RBC) [Mass/Vol]31.0 g/dL28.4 - 34.8 g/dLBon SecPremier HealthV (RBC) [Entitic vol]85.2 fL82.6 - 102.9 fLCarilion Roanoke Community HospitalMonocytes/100 WBC (Bld)5 %3 - 12 %Bon [facility] Monocytes/100 WBC (Bld)0.79 %[facility] HospitalNeutrophils/100 WBC (Bld)88 %High36 - 65 %Bon [facility] DaytonNucleated RBC/100 WBC (Bld) [Ratio]0.0 % 0.0 per 100 WBCBon [facility] DaytonPlatelet mean volume (Bld) [Entitic vol] 9.1 fL8.1 - 13.5 fLCarilion Roanoke Community HospitalPlatelets (Bld) [#/Vol]319 10*3/uLBon [facility] DaytonRBC (Bld) [#/Vol]3.59 10*6/uLLow3.95 - 5.11 m/uLCarilion Roanoke Community HospitalSegmented neutrophils/100 WBC (Bld)14.09 %HighBon [facility] DaytonWBC other (Bld) [#/Vol]16.0HighBon [facility] SystemCBC with Diffon [id number]. Basophil0.03 k/uLNormal0.00-0.20[facility]huja Medical CenterComment on above:Performed By: #### CRP, HCG, LIP, TROPI, CDP, CP #### [facility] [address] [place] [address] [phone] Securities Adviser: Ruba Garg.Imm.Granulocyte0.12 k/uLNormal0.00-0.30[facility] Ahuja Medical CenterComment on above:Performed By: #### CRP, HCG, LIP, TROPI, CDP, CP #### [facility] [address] [place] [address] [phone] Securities Adviser: Ruba Garg.Neutrophil (Seg)14.09 k/uLHigh1.50-8.10[facility]huja Medical CenterComment on above:Performed By: #### CRP, HCG, LIP, TROPI, CDP, CP #### [facility] [address] [place] [address] Securities Adviser: Dioni Merlos MDBasophils/100 WBC (Bld)0 %Normal0-2MKaiser Permanente San Francisco Medical CenterComment on above:Performed By: #### CRP, HCG, LIP, TROPI, CDP, CP #### [place] [address] Securities Adviser: Dioni Merlos MDEosinophils (Bld) [#/Vol]0.18 10*3/uLNormal 0.00-0.44[facility]huja Medical CenterComment on above:Performed By: #### CRP, HCG, LIP, TROPI, CDP, CP #### [facility] [address] [place] [address] Securities Adviser: ZORAN Gargosinophils/100 WBC (Bld)1 %Normal1-4[facility]ja Medical CenterComment on above:Performed By: #### CRP, HCG, LIP, TROPI, CDP, CP #### [facility] [address] [place] [address] Securities Adviser: Dioni Merlos MDErythrocyte distribution width (RBC) [Ratio]14.0 %Ekmnjq51.8-14.4[facility]ja Medical CenterComment on above:Performed By: #### CRP, HCG, LIP, TROPI, CDP, CP #### [facility] [address] [place] [address] Securities Adviser: Dioni Merlos MDHematocrit (Bld) [Volume fraction]30.6 %Low 36.3-47.1MKaiser Permanente San Francisco Medical CenterComment on above:Performed By: #### CRP, HCG, LIP, TROPI, CDP, CP #### [address] [address] Securities Adviser: Dioni Merlos MDHemoglobin (Bld) [Mass/Vol]9.5 g/dLLow11.9-15.1 [facility]ja Medical CenterComment on above:Performed By: #### CRP, HCG, LIP, TROPI, CDP, CP #### [address] [address] Securities Adviser: Dioni Merlos MDImmature granulocytes/100 WBC (Bld)1 %Ymea8AjkwwUniversity Hospitals Ahuja Medical CenterComment on above:Performed By: #### CRP, HCG, LIP, TROPI, CDP, CP #### [address] [address] Securities Adviser: Dioni Merlos MDLymphocytes (Bld) [#/Vol]0.81 10*3/uLLow 1.10-3.70[facility]ja Medical CenterComment on above:Performed By: #### CRP, HCG, LIP, TROPI, CDP, CP #### [address] [address] Securities Adviser: Dereck Gargmphocytes/100 WBC (Bld)5 %Vvv05-93FbqbxUniversity Hospitals Ahuja Medical CenterComment on above:Performed By: #### CRP, HCG, LIP, TROPI, CDP, CP #### [facility] [address] [place] [address] Securities Adviser: SHARYN Garg (RBC) [Entitic mass]26.5 duXrcqbm06.2-33.5 [facility] Medical CenterComment on above:Performed By: #### CRP, HCG, LIP, TROPI, CDP, CP #### [facility] [address] [place] [address] Securities Adviser: Dioni Madoff, MDMCHC (RBC) [Mass/Vol]31.0 g/bWGeczmz89.4-34.8 [facility] Medical CenterComment on above:Performed By: #### CRP, HCG, LIP, TROPI, CDP, CP #### [address] [address] Securities Adviser: JAN GargCV (RBC) [Entitic vol]85.2 pWGvzlza67.6-102.9 [facility] Medical CenterComment on above:Performed By: #### CRP, HCG, LIP, TROPI, CDP, CP #### [address] [address] Securities Adviser: JAN Gargonocytes (Bld) [#/Vol]0.79 10*3/uLNormal 0.10-1.20[facility] Medical CenterComment on above:Performed By: #### CRP, HCG, LIP, TROPI, CDP, CP #### [address] [address] Securities Adviser: JAN Gargonocytes/100 WBC (Bld)5 %Normal3-12[facility] Medical CenterComment on above:Performed By: #### CRP, HCG, LIP, TROPI, CDP, CP #### [address] [address] Securities Adviser: Karishma Gargophil (Seg)88 %Dlex95-01KqzrdUniversity Hospitals Ahuja Medical CenterComment on above:Performed By: #### CRP, HCG, LIP, TROPI, CDP, CP #### [place] [address] Securities Adviser: HENNY GargBC Automated0.0 per 100 WBCNormal0.0[facility]huja Medical CenterComment on above:Performed By: #### CRP, HCG, LIP, TROPI, CDP, CP #### [address] [address] Securities Adviser: Natalia Garg mean volume (Bld) [Entitic vol]9.1 fL Normal8.1-13.5[facility]ja Medical CenterComment on above:Performed By: #### CRP, HCG, LIP, TROPI, CDP, CP #### [address] [address] Securities Adviser: Latisha Gargtetaina (Bld) [#/Vol]319 10*3/tIKlmuxr590-336 [facility] Medical CenterComment on above:Performed By: #### CRP, HCG, LIP, TROPI, CDP, CP #### [address] [address] Securities Adviser: FADY Garg (Bld) [#/Vol]3.59 10*6/uLLow3.95-5.11[facility] Medical CenterComment on above:Performed By: #### CRP, HCG, LIP, TROPI, CDP, CP #### [address] [address] Securities Adviser: Dioni Merlos MDWSABINA (Bld) [#/Vol]16.0 10*3/uLHigh3.5-11.3MKaiser Permanente San Francisco Medical CenterComment on above:Performed By: #### CRP, HCG, LIP, TROPI, CDP, CP #### [address] [address] Securities Adviser: LUIGI Garg Guidance for drainage of abscess [...] and supervised by the attending with physician oivv-ly-sxyk monitoring. Medications were provided and recorded by Radiology nurses. DOSE: DOSE/DLP: 351.91 mGy-cm Dose modulation, iterative reconstruction, and/or weight based adjustment of the mA/kV was utilized to reduce the radiation dose to as low as reasonably achievable. TECHNIQUE/PROCEDURE DETAILS: Informed consent was obtained after a detailed explanation of the procedure including risks. [place] protocol was followed. Sterile gown, masks, hats, and gloves utilized for maximal sterile barrier. The patient was placed in the prone position on the CT couch. A silo painter scan was performed of the pelvis. The previously identified pelvic fluid was re-identified, and contrast could still be seen within the rectum/sigmoid colon. Moderate conscious sedation was initiated. A site was selected for drainage in the left perirectal region using a transgluteal approach. The skin was prepped and draped in sterile manner, and 1% lidocaine was utilized for local anesthetic. A 5 Polish 9 Yueh needle sheath was advanced under [...] aspiration using a left transgluteal approach. Bon [facility] SystemLactic Acidon 10-31-9011Wzykgf Acid, Whole Blood0.9 mmol/L0.7 - 2.1 mmol/LBon [facility] SystemLactic Acid,Whole Bl0.9 mmol/LNormal0.7-2.1[facility] Kindred HospitalComment on above:Performed By: #### CRP #### [facility] [address] [place] [address] Securities Adviser: Dioni Merlos MDInterpretation and review of laboratory results AbnormalBon [facility] DaytonLactic Acid, Whole Blood0.5 mmol/LLow0.7 - 2.1 mmol/LBon [facility] Health SystemLactic Acid,Whole Bl0.5 mmol/LLow0.7-2.1[facility] Kindred HospitalComment on above:Performed By: #### CRP #### [facility] [address] [place] [phone] Securities Adviser: Dioni Merlos MDWindham Hospital Metabolic Panelon [id number], Glom Filt Rate- PINFBon [facility] DaytonComtr[facility] on above: These results are not intended [...] tubular secretion. Interpretation and review of laboratory resultsAbnormalCarilion Roanoke Community Hospital Basic Metabolic Profon 01-44-4310Gmhyo gap [Moles/Vol]17 mmol/LHigh9-16[facility] HospitalComtrinity health living[facility] hospital on above:Performed By: #### CRP, HCG, LIP, TROPI, CDP, CP #### [facility] [address] [place] [phone] Securities Adviser: ANGIE Gargalcium [Mass/Vol]7.9 mg/dLLow8.6-10.4Bon [facility] DaytonComtrinity health livingston hospital on above:Performed By: #### CRP, HCG, LIP, TROPI, CDP, CP #### [facility] [address] [place] [address] Securities Adviser: Dioni Merlos MDChloride [Moles/Vol]104 mmol/NMirwto45-033QmbCarilion Roanoke Community Hospital on above:Performed By: #### CRP, HCG, LIP, TROPI, CDP, CP #### [facility] [address] [place] [address] Securities Adviser: Dioni Merlos MDCO2 [Moles/Vol]13 mmol/PXgj06-93Nrg [facility] on above:Performed By: #### CRP, HCG, LIP, TROPI, CDP, CP #### [facility] [address] [place] [address] Securities Adviser: ANGIE Gargreatinine [Mass/Vol]0.5 mg/dLLow0.6-0.9Bon [facility] on above:Performed By: #### CRP, HCG, LIP, TROPI, CDP, CP #### [address] [address] Securities Adviser: Dioni Merlos MDGFR/1.73 sq M.predicted among non-blacks [...] CRP, HCG, LIP, TROPI, CDP, CP #### [facility] [address] [place] [address] Securities Adviser: Dioni Merlos MDGlucose [Mass/Vol]60 mg/sCQfi79-47Lde [facility] on above:Performed By: #### CRP, HCG, LIP, TROPI, CDP, CP #### [facility] [address] [place] [address] Securities Adviser: RACHID Gargotassium [Moles/Vol]3.7 mmol/LNormal3.7-5.3[facility] HealthComment on above:Performed By: #### CRP, HCG, LIP, TROPI, CDP, CP #### [facility] [address] [place] [address] Securities Adviser: CASS Gargodium [Moles/Vol]134 mmol/CZnj209-613Mrg SecNorthwest Rural Health Networky HealthComment on above:Performed By: #### CRP, HCG, LIP, TROPI, CDP, CP #### [facility] [address] [place], [place] [phone] Securities Adviser: Dioin Merlos MDUrea nitrogen [Mass/Vol]3 mg/dLLow6-20Bon SecNorthwest Rural Health Networky HealthComment on above:Performed By: #### CRP, HCG, LIP, TROPI, CDP, CP #### [facility] [address] [place], [place] [phone] Securities Adviser: Dioni Merlos [facility] – OKLAHOMA CITYBC with Auto Differentialon [id number] (Bld) [#/Vol]0.00 10*3/uLBon Secours Mercy HealthBasophils/100 WBC [...] 10*3/uLBon Secours Mercy HealthImmature granulocytes/100 WBC (Bld)1 %Qdly9Zfa [facility]ours [facility] Interpretation and review of laboratory resultsAbnormalBon [facility] Lymphocytes/100 WBC (Bld)5 %Low24 - 43 %[facility] HealthLymphocytes/100 WBC (Bld)0.91 %LowBon [facility] Medical CenterH (RBC) [Entitic mass]26.9 pg25.2 - 33.5 pgMary Washington HealthcareHC (RBC) [Mass/Vol]27.5 g/dLLow28.4 - 34.8 g/dL Bon [facility] CenterV (RBC) [Entitic vol]97.7 fL82.6 - 102.9 fLCarilion Roanoke Community HospitalMonocytes/100 WBC (Bld)4 %3 - 12 %[facility] Monocytes/100 WBC (Bld)0.73 %[facility] HospitalMorphology Eliu (Bld) [Interp]NormalBon [facility] DaytonNeutrophils/100 WBC (Bld)89 %High36 - 65 % Bon [facility] DaytonNucleated RBC/100 WBC (Bld) [Ratio]0.0 %0.0 per 100 WBC [facility] HospitalPlatelet mean volume (Bld) [Entitic vol]9.1 fL8.1 - 13.5 fLCarilion Roanoke Community HospitalPlatelets (Bld) [#/Vol]304 10*3/uLBon [facility] DaytonRBC (Bld) [#/Vol]3.53 10*6/uLLow3.95 - 5.11 m/uLCarilion Roanoke Community Hospital Segmented neutrophils/100 WBC (Bld)16.20 %HighCarilion Roanoke Community HospitalWBC other (Bld) [#/Vol]18.2HighBon [facility] DaytonBon [facility] DaytonCBC with Diffon [id number]. Basophil0.00 k/uLNormal0.00-0.20[facility] Medical CenterComment on above:Performed By: #### CRP, HCG, LIP, TROPI, CDP, CP #### [facility] [address] [place] [address] Securities Adviser: Ruba Garg.Imm.Granulocyte0.18 k/uLNormal0.00-0.30[facility] Medical CenterComment on above:Performed By: #### CRP, HCG, LIP, TROPI, CDP, CP #### [facility] [address] [place] [address] Securities Adviser: Ruba Garg.Neutrophil (Seg)16.20 k/uLHigh1.50-8.10[facility] Medical CenterComment on above:Performed By: #### CRP, HCG, LIP, TROPI, CDP, CP #### [place] [address] Securities Adviser: Dioni Merlos MDBasophils/100 WBC (Bld)0 %Normal0-2MKaiser Permanente San Francisco Medical CenterComment on above:Performed By: #### CRP, HCG, LIP, TROPI, CDP, CP #### [place] [address] Securities Adviser: Dioni Merlos MDEosinophils (Bld) [#/Vol]0.18 10*3/uLNormal 0.00-0.44[facility] Medical CenterComment on above:Performed By: #### CRP, HCG, LIP, TROPI, CDP, CP #### [address] [address] Securities Adviser: Dioni Merlos MDEosinophils/100 WBC (Bld)1 %Normal1-4[facility] Medical CenterComment on above:Performed By: #### CRP, HCG, LIP, TROPI, CDP, CP #### [facility] [address] [place] [address] Securities Adviser: Johanny Gargmature granulocytes/100 WBC (Bld)1 %Lfob9ZgsktUniversity Hospitals Ahuja Medical CenterComment on above:Performed By: #### CRP, HCG, LIP, TROPI, CDP, CP #### [facility] [address] [place] [address] Securities Adviser: Dioni Madoff, MDLymphocytes (Bld) [#/Vol]0.91 10*3/uLLow 1.10-3.70[facility] Medical CenterComment on above:Performed By: #### CRP, HCG, LIP, TROPI, CDP, CP #### [facility] [address] [place] [address] Securities Adviser: Dioni Merlos MDLymphocytes/100 WBC (Bld)5 %Ebf74-17MomkdUniversity Hospitals Ahuja Medical CenterComment on above:Performed By: #### CRP, HCG, LIP, TROPI, CDP, CP #### [facility] [address] [place] [address] Securities Adviser: JAN Gargonocytes (Bld) [#/Vol]0.73 10*3/uLNormal 0.10-1.20[facility] Medical CenterComment on above:Performed By: #### CRP, HCG, LIP, TROPI, CDP, CP #### [facility] [address] [place] [address] Securities Adviser: JAN Gargonocytes/100 WBC (Bld)4 %Normal3-12[facility] Medical CenterComment on above:Performed By: #### CRP, HCG, LIP, TROPI, CDP, CP #### [facility] [address] [place] [phone] Securities Adviser: JAN Gargorphology Eliu (Bld) [Interp]NormalNormalUniversity Hospitals Ahuja Medical CenterComment on above:Performed By: #### CRP, HCG, LIP, TROPI, CDP, CP #### [facility] [address] [place] [address] Securities Adviser: Dioni Merlos MDNeutrophil (Seg)89 %Qxoi11-27YlvzxUniversity Hospitals Ahuja Medical CenterComment on above:Performed By: #### CRP, HCG, LIP, TROPI, CDP, CP #### [facility] [address] [place] [address]. [place] [address] Securities Adviser: Dioni Merlos MDErythrocyte distribution width (RBC) [Ratio]14.5 %High11.8-14.4[facility] Medical CenterComment on above:Performed By: #### CRP, HCG, LIP, TROPI, CDP, CP #### [address] [address] Securities Adviser: Dioni Merlos MDHematocrit (Bld) [Volume fraction]34.5 %Low 36.3-47.1MKaiser Permanente San Francisco Medical CenterComment on above:Performed By: #### CRP, HCG, LIP, TROPI, CDP, CP #### [place] [address] Securities Adviser: Dioni Merlos MDHemoglobin (Bld) [Mass/Vol]9.5 g/dLLow11.9-15.1 [facility] Medical CenterComment on above:Performed By: #### CRP, HCG, LIP, TROPI, CDP, CP #### [address] [address] Securities Adviser: JAN GargCH (RBC) [Entitic mass]26.9 hcSysjco46.2-33.5 [facility] Medical CenterComment on above:Performed By: #### CRP, HCG, LIP, TROPI, CDP, CP #### [place] [address] Securities Adviser: JAN GargCHC (RBC) [Mass/Vol]27.5 g/dLLow28.4-34.8[facility] Medical CenterComment on above:Performed By: #### CRP, HCG, LIP, TROPI, CDP, CP #### [address] [address] Securities Adviser: JAN GargCV (RBC) [Entitic vol]97.7 mZWamtbb58.6-102.9 [facility] CenterComment on above:Performed By: #### CRP, HCG, LIP, TROPI, CDP, CP #### [facility] [address] [place] [address] Securities Adviser: GAYATRI Garg Automated0.0 per 100 WBCNormal0.0[facility] Medical CenterComment on above:Performed By: #### CRP, HCG, LIP, TROPI, CDP, CP #### [facility] [address] [place] [address] Securities Adviser: Natalia Garg mean volume (Bld) [Entitic vol]9.1 fL Normal8.1-13.5[facility] Medical CenterComment on above:Performed By: #### CRP, HCG, LIP, TROPI, CDP, CP #### [facility] [address] [place] [address] Securities Adviser: Lionel Garg (Bld) [#/Vol]304 10*3/nRAkjftg448-670 [facility] CenterComment on above:Performed By: #### CRP, HCG, LIP, TROPI, CDP, CP #### [facility] [address] [place] [address] Securities Adviser: FAYD Garg (Bld) [#/Vol]3.53 10*6/uLLow3.95-5.11[facility] Medical CenterComment on above:Performed By: #### CRP, HCG, LIP, TROPI, CDP, CP #### [facility] [address] [place] [address] Securities Adviser: GIANNA Garg (Bld) [#/Vol]18.2 10*3/uLHigh3.5-11.3MKaiser Permanente San Francisco Medical CenterComment on above:Performed By: #### CRP, HCG, LIP, TROPI, CDP, CP #### [facility] [address] [place] [address] [phone] Securities Adviser: LUIGI Garg Guidance for drainage of abscess and placement of drainage catheter of Unspecified body regionon [id number] Study observation (narrative)Bon [facility] DaytonLactic Acidon 05-03-2024 Interpretation and review of laboratory resultsAbnormalBon [facility] Lactic Acid, Whole Blood0.6 mmol/LLow0.7 - 2.1 mmol/LBon [facility] Health SystemLactic Acid,Whole Bl0.6 mmol/LLow0.7-2.1[facility] Kindred HospitalComment on above:Performed By: #### CRP, HCG, LIP, TROPI, CDP, CP #### [facility] [address] [place] [address] [phone] Securities Adviser: Dar Garg Panel Informationon 77-50-4051Whh [facility] DaytonVancomycin Level, Randomon 94-25-1148Ctdafjlwkv [Mass/Vol]5.6 ug/mL 5.0 - 40.0 ug/mLCarilion Roanoke Community HospitalComment on above:Higher trough serum vancomycin concentrations of 15-20 ug/mL are recommended for complicated infections such as bacteremia, endocarditis, osteomyelitis, meningitis, and hospital acquired pneumonia. Vancomycin,Randomon 18-62-4757Quyoagbizz1.6 ug/mLNormal5.0-40.0[facility] CenterComment on above:Result Comment: Higher trough serum vancomycin concentrations of 15-20 ug/mL are recommended for complicated infections such as bacteremia, endocarditis, osteomyelitis, meningitis, and hospital acquired pneumonia.Performed By: #### CRP, HCG, LIP, TROPI, CDP, CP #### [facility] [address] [place] [address] [phone] Securities Adviser: Shlomo Garg Metab w/rfx MGon 35-51-7346Chzyy gap [Moles/Vol]11 mmol/LNormal9-16[facility] Medical CenterComment on above: Performed By: #### CBC, LACTIC #### [facility] [place] [address] Securities Adviser: Dioni Merlos MDCalcium [Mass/Vol]8.2 mg/dLLow8.6-10.4[facility] Medical CenterComment on above:Performed By: #### CBC, LACTIC #### [facility] [address] [place] [address] Securities Adviser: Dioni Merlos MDChloride [Moles/Vol]99 mmol/ILgxpmn28-180XpcyjUniversity Hospitals Ahuja Medical CenterComment on above:Performed By: #### CBC, LACTIC #### [facility] [address] [place] [address] Securities Adviser: Dioni Merlos MDCO2 [Moles/Vol]23 mmol/ZQftiva67-53VlojrUniversity Hospitals Ahuja Medical CenterComment on above:Performed By: #### CBC, LACTIC #### [facility] [address] [place] [address] Securities Adviser: Dioni Merlos MDCreatinine [Mass/Vol]0.5 mg/dLLow0.6-0.9[facility] Medical CenterComment on above:Performed By: #### CBC, LACTIC #### [facility] [address] [place] [phone] Securities Adviser: Dioni Merlos MDGFR/1.73 sq M.predicted among non-blacks MDRD (S/P/Bld) [Vol rate/Area]mL/min/{1.73_m2}Normal>60MerFairchild Medical CenterComment on above:Result Comment: These results [...] By: #### CBC, LACTIC #### [facility] [address] [place] [address] Securities Adviser: Dioni Merlos MDGlucose [Mass/Vol]82 mg/gELblcom72-04QmhixKaiser Permanente San Francisco Medical CenterComment on above:Performed By: #### CBC, LACTIC #### [facility] [address] [place] [address] Securities Adviser: RACHID Gargotassium [Moles/Vol]3.4 mmol/LLow3.7-5.3MKaiser Permanente San Francisco Medical CenterComment on above:Performed By: #### FOZIA, LACTIC #### [facility] [address] [place] [address] Securities Adviser: Dioni Merlos MDSodium [Moles/Vol]133 mmol/ZGol983-231FneosUniversity Hospitals Ahuja Medical CenterComment on above:Performed By: #### FOZIA, LACTIC #### [address] [address] Securities Adviser: Dioni Merlos MDUrea nitrogen [Mass/Vol]3 mg/dLLow6-20[facility] Medical CenterComment on above:Performed By: #### FOZIA, LACTIC #### [address] [address] Securities Adviser: Dioni Merlos MDBajane todd [facility] Metabolic Panel w/ Reflex to MGon [id number] gap [Moles/Vol]11 mmol/L9 - 16 mmol/LBon [facility] Calcium [Mass/Vol]8.2 mg/dLLow8.6 - 10.4 mg/dLBon Secours [facility] Health HealthChloride [Moles/Vol]99 mmol/L98 - 107 mmol/LBon Secours Guernsey Memorial HospitalCO2 [Moles/Vol]23 mmol/L20 - 31 mmol/LBon Secours Guernsey Memorial HospitalCreatinine [Mass/Vol]0.5 mg/dLLow0.6 - 0.9 mg/dLBon Secours Guernsey Memorial HospitalEst, Glom Filt Rate- PINFBon SecNorthwest Rural Health Networky HealthComment on above: These results are not [...] - 5.3 mmol/LBon Secours Mercy HealthSodium [Moles/Vol]133 mmol/ADgk837 - 145 mmol/LBon Secours Mercy HealthUrea nitrogen [Mass/Vol]3 mg/dLLow6 - 20 mg/dLBon Secours Mercy HealthCBC with Auto Differentialon 36-52-5481Hirgqoety (Bld) [#/Vol]0.00 10*3/uLBon Secours Mercy HealthBasophils/100 WBC [...] %[facility] Lymphocytes/100 WBC (Bld)1.60 %[facility] HealthcareH (RBC) [Entitic mass] 27.9 pg25.2 - 33.5 pgBon [facility] CenterHC (RBC) [Mass/Vol]31.9 g/dL28.4 - 34.8 g/dLBon [facility] Regional Medical CenterV (RBC) [Entitic vol]87.4 fL82.6 - 102.9 fL [facility] HospitalMonocytes/100 WBC (Bld)3 %1 - 7 %[facility] HospitalMonocytes/100 WBC (Bld)0.68 %[facility] HospitalMorphology Eliu (Bld) [Interp]NormalBon [facility] DaytonNeutrophils/100 WBC (Bld)90 %High36 - 66 % [facility] HospitalNucleated RBC/100 WBC (Bld) [Ratio]0.0 %0.0 per 100 WBC [facility] HospitalPlatelet mean volume (Bld) [Entitic vol]9.3 fL8.1 - 13.5 fLBon [facility] DaytonPlatelets (Bld) [#/Vol]322 10*3/uLCarilion Roanoke Community HospitalRBC (Bld) [#/Vol]3.73 10*6/uLLow3.95 - 5.11 m/[facility] Segmented neutrophils/100 WBC (Bld)20.52 %HighCarilion Roanoke Community HospitalWBC other (Bld) [#/Vol]22.8HighRiverside Regional Medical CenterCBC with Diffon [id number]. Basophil0.00 k/uLNormal0.0-0.2Mer[facility] Kindred HospitalComment on above:Performed By: #### CBC, LACTIC #### [facility] [address] [place] [address] Securities Adviser: Ruba Garg.Imm.Granulocyte0.00 k/uLNormal0.00-0.30Mer[facility] Kindred HospitalComment on above:Performed By: #### CBC, LACTIC #### [facility] [address] [place] [address] Securities Adviser: Ruba Garg.Neutrophil (Seg)20.52 k/uLHigh1.8-7.7[facility]huja Medical CenterComment on above:Performed By: #### CBC, LACTIC #### [address] [address] Securities Adviser: Dioni Merlos MDBasophils/100 WBC (Bld)0 %Normal0-2MKaiser Permanente San Francisco Medical CenterComment on above:Performed By: #### CBC, LACTIC #### [address] [address] Securities Adviser: Dioni Merlos MDEosinophils (Bld) [#/Vol]0.00 10*3/uLNormal 0.0-0.4[facility]ja Medical CenterComment on above:Performed By: #### CBC, LACTIC #### [address] [address] Securities Adviser: Dioni Merlos MDEosinophils/100 WBC (Bld)0 %Low1-4[facility]ja Medical CenterComment on above:Performed By: #### CBC, LACTIC #### [address] [address] Securities Adviser: Roger Garg granulocytes/100 WBC (Bld)0 %Normal0 [facility] Medical CenterComment on above:Performed By: #### CBC, LACTIC #### [address] [address] Securities Adviser: Dioni Merlos MDLymphocytes (Bld) [#/Vol]1.60 10*3/uLNormal 1.0-4.8[facility] Medical CenterComment on above:Performed By: #### CBC, LACTIC #### [address] [address] Securities Adviser: Dioni Merlos MDLymphocytes/100 WBC (Bld)7 %Saa62-65VldqiUniversity Hospitals Ahuja Medical CenterComment on above:Performed By: #### CBC, LACTIC #### [address] [address] Securities Adviser: JAN Gargonocytes (Bld) [#/Vol]0.68 10*3/uLNormal0.1-0.8 [facility] Medical CenterComment on above:Performed By: #### CBC, LACTIC #### [address] [address] Securities Adviser: JAN Gargonocytes/100 WBC (Bld)3 %Normal1-7[facility]ja Medical CenterComment on above:Performed By: #### CBC, LACTIC #### [place] [address] Securities Adviser: JAN Gargorphology Eliu (Bld) [Interp]NormalNormalUniversity Hospitals Ahuja Medical CenterComment on above:Performed By: #### CBC, LACTIC #### [address] [address] Securities Adviser: Dioni Merlos MDNeutrophil (Seg)90 %Jmev84-57HsdxpUniversity Hospitals Ahuja Medical CenterComment on above:Performed By: #### CBC, LACTIC #### [address] [address] Securities Adviser: Dioni Merlos MDErythrocyte distribution width (RBC) [Ratio]14.3 %Dqioem16.8-14.4[facility]ja Medical CenterComment on above:Performed By: #### CBC, LACTIC #### [address] [address] Securities Adviser: Dioni Merlos MDHematocrit (Bld) [Volume fraction]32.6 %Low 36.3-47.1MercRussellville Hospital Medical CenterComment on above:Performed By: #### CBC, LACTIC #### [address] [address] Securities Adviser: Dioni Merlos MDHemoglobin (Bld) [Mass/Vol]10.4 g/dLLow11.9-15.1 [facility] Medical CenterComment on above:Performed By: #### CBC, LACTIC #### [place] [address] Securities Adviser: JAN GargCH (RBC) [Entitic mass]27.9 erJzcpwj31.2-33.5 [facility] Medical CenterComment on above:Performed By: #### CBC, LACTIC #### [place] [address] Securities Adviser: JAN GargCHC (RBC) [Mass/Vol]31.9 g/bBNurivj19.4-34.8 [facility] Medical CenterComment on above:Performed By: #### CBC, LACTIC #### [place] [address] Securities Adviser: JAN GargCV (RBC) [Entitic vol]87.4 lIPevuzm83.6-102.9 [facility] Medical CenterComment on above:Performed By: #### CBC, LACTIC #### [place] [address] Securities Adviser: Dioni Merlos MDNRBC Automated0.0 per 100 WBCNormal0.0[facility]ja Medical CenterComment on above:Performed By: #### CBC, LACTIC #### [place] [address] Securities Adviser: RACHID Garglatelet mean volume (Bld) [Entitic vol]9.3 fL Normal8.1-13.5[facility] Medical CenterComment on above:Performed By: #### CBC, LACTIC #### [facility] [address] [place] [address] Securities Adviser: Lionel Garg (Bld) [#/Vol]322 10*3/jVHvmxpx910-448 [facility] Medical CenterComment on above:Performed By: #### CBC, LACTIC #### [facility] [place] [address] Securities Adviser: Dioni Merlos MDRBC (Bld) [#/Vol]3.73 10*6/uLLow3.95-5.11[facility] Medical CenterComment on above:Performed By: #### CBC, LACTIC #### [facility] [address] [place] [address] Securities Adviser: GIANNA Garg (Bld) [#/Vol]22.8 10*3/uLHigh3.5-11.3MKaiser Permanente San Francisco Medical CenterComment on above:Performed By: #### CBC, LACTIC #### [facility] [address] [place] [address] Securities Adviser: LUIGI Garg ABDOMEN PELVIS W IV CONTRASTon [id number] ABDOMEN PELVIS W IV CONTRASTEXAMINATION: CT OF [...] by: Kiko Alba MD 05/02/24 Final resultNormalMercy Kindred HospitalCT Abdomen and Pelvis W contrast Bette . [...] small bowel obstruction given dilated proximal bowel eegoesRadiology Study observation (narrative)eegoesCT Abdomen and Pelvis W contrast IVOrdered By: Kiko Alba on [id number] Phone: ekg 12 LeadOrdered By: Rashid Gamez on 68-71-5356Tubxcx Cagw759VMJEdc [employer] Phone: P Zeay98ihygaxfIguExchange Lab Phone: P-R Xbxeibjh152 [employer] Phone: Q-T Uiajqmqy117 [employer] Phone: QRS Gzpeyvip62 [employer] Phone: QTc Calculation (Lucas)461 [employer] Phone: R Pcod51ocvlxhqDvmArch [employer] Phone: T Uhln03vvrobyoKxa [address] Work Phone: Ventricular Pvik429OKMMhu [address] Work Phone: Bon [address] Work Phone: EKG 12 Leadon 73-75-6117Mwryl tachycardia Otherwise normal ECG When compared with ECG of 22-NOV-2023 05:17, Vent. rate has increased BY 50 BPMMHPN STRashid Mejia MD - 05/02/2024 Sinus tachycardia Otherwise normal ECG When compared with ECG of 22-NOV-2023 05:17, Vent. rate has increased BY 50 BPM Bon 911 ViewHepatic Function Panelon 61-57-7858Njwbuiv [Mass/Vol]2.8 g/dLLow3.5 - 5.2 g/dLBon 911 ViewAlbumin/Globulin [Mass ratio]1.0 {ratio}1.0 - 2.5Bon 911 ViewALP [Catalytic activity/Vol]78 U/L35 - 104 U/LBon 911 ViewALT [Catalytic activity/Vol]8 U/LLow10 - 35 U/L [facility] 911 ViewAST [Catalytic activity/Vol]11 U/L10 - 35 U/LBon 911 ViewBilirubin [Mass/Vol]0.7 mg/dL0.0 - 1.2 mg/dLBon [address] Bilirubin.direct [Mass/Vol]0.4 mg/dLHigh0.0 - 0.2 mg/dLBon [address] Bilirubin.indirect [Mass/Vol]0.3 mg/dL0.0 - 1.0 mg/dLBon [address] Globulin (S) [Mass/Vol]3.0 g/dLBon 911 ViewProtein [Mass/Vol]5.8 g/dLLow6.6 - 8.7 g/dLBon 911 ViewK (Potassium)on 44-69-3755Rykwefmqf [Moles/Vol]3.5 mmol/LLow3.7-5.3Mer[facility] Kindred HospitalComment on above:Performed By: #### CBC, LACTIC #### [facility] [address] [place] [address] Securities Adviser: Juliet Gargctic Acidon 85-62-2927Nyvrpd Acid, Whole Blood 0.8 mmol/L0.7 - 2.1 mmol/LBon [facility] Health SystemLactic Acid,Whole Bl0.8 mmol/LNormal0.7-2.1MKaiser Permanente San Francisco Medical CenterComment on above:Performed By: #### CRP #### [facility] [address] [place] [address] Securities Adviser: Dioni Merlos MDLactic Acid, Whole Blood0.8 mmol/L0.7 - 2.1 mmol/LBon [facility] SystemLactic Acid,Whole Bl0.8 mmol/LNormal0.7-2.1MKaiser Permanente San Francisco Medical CenterComment on above:Performed By: #### CRP, HCG, LIP, TROPI, CDP, CP #### [facility] [address] [place] [address] [phone] Securities Adviser: Dioni Merlos MDLactic Acid, Whole Blood0.7 mmol/L0.7 - 2.1 mmol/LBon [facility] SystemLactic Acid,Whole Bl0.7 mmol/LNormal0.7-2.1MKaiser Permanente San Francisco Medical CenterComment on above:Performed By: #### CRP #### [facility] [address] [place] [address] Securities Adviser: Dioni Merlos MDLiver Profileon 42-76-0640Ceyohmo [Mass/Vol]2.8 g/dLLow3.5-5.2MKaiser Permanente San Francisco Medical CenterComment on above:Performed By: #### CBC, LACTIC #### [facility] [address] [place] [address] [phone] Securities Adviser: Dioni Merlos MDAlbumin/Glob Ratio1.9Bjihox5.0-2.5[facility]ja Medical CenterComment on above:Performed By: #### CBC, LACTIC #### [facility] [address] [place] [address] Securities Adviser: Dioni Merlos MDAlkagovind Phos78 U/MPzgost87-362UprcgUniversity Hospitals Ahuja Medical CenterComment on above:Performed By: #### CBC, LACTIC #### [facility] [address] [place] [address] Securities Adviser: Dioni Merlos MDALT [Catalytic activity/Vol]8 U/AYgw95-96FbgssUniversity Hospitals Ahuja Medical CenterComment on above:Performed By: #### CBC, LACTIC #### [facility] [address] [place] [address] Securities Adviser: Dioni Merlos MDAST [Catalytic activity/Vol]11 U/KFdhzlt54-21 [facility] Medical CenterComment on above:Performed By: #### CBC, LACTIC #### [facility] [address] [place] [address] Securities Adviser: Dioni Merlos MDBilirubin [Mass/Vol]0.7 mg/dLNormal0.0-1.2MKaiser Permanente San Francisco Medical CenterComment on above:Performed By: #### CBC, LACTIC #### [facility] [address] [place] [address] Securities Adviser: Dioni Merlos MDBilirubin, Indirect0.3 mg/dLNormal0.0-1.0[facility] Medical CenterComment on above:Performed By: #### CBC, LACTIC #### [facility] [address] [place] [address] Securities Adviser: Edei Gargirubin.indirect [Mass/Vol]0.4 mg/dLHigh 0.0-0.2MKaiser Permanente San Francisco Medical CenterComment on above:Performed By: #### CBC, LACTIC #### [facility] [place] [address] Securities Adviser: Dioni Merlos MDGlobulin (S) [Mass/Vol]3.0 g/dLNoalUniversity Hospitals Ahuja Medical CenterComment on above:Performed By: #### CBC, LACTIC #### [facility] [address] [place] [address] Securities Adviser: RACHID Gargrotein [Mass/Vol]5.8 g/dLLow6.6-8.7[facility] Medical CenterComment on above:Performed By: #### FOZIA, LACTIC #### [facility] [address] [place] [address] Securities Adviser: Chris Garggnesiumon [id number] and review of laboratory resultsAbnoCentra Virginia Baptist HospitalMagnesium [Mass/Vol]1.5 mg/dLLow1.6 - 2.6 mg/dLBon [facility] SystemMagnesium [Mass/Vol]1.5 mg/dLLow1.6-2.6Mer[facility] Kindred HospitalComment on above: Performed By: #### CBC, LACTIC #### [facility] [address] [place] [address] Securities Adviser: Dioni Merlos MD Panel Informationon 31-66-8924Segsipaammvozy and review of laboratory resultsAbSiouxland Surgery Center 40-60-8720FED Coag (PPP) [Relative time]1.2 {INR}NormalUniversity Hospitals Ahuja Medical CenterComment on above:Result Comment: Therapeutic Range: Moderate Anticoagulant Intensity: INR = 2.0-3.0 High Anticoagulant Intensity: INR = 2.5-3.5Performed By: #### CBC, LACTIC #### [facility] [address] [place] [address] [phone] Securities Adviser: RACHID GargT Coag (PPP) [Time]15.4 sHigh11.7-14.9[facility] Medical CenterComment on above:Performed By: #### CBC, LACTIC #### [facility] [address] [place] [address] Securities Adviser: RACHID Gargotassiumon 22-81-6557Obqkunazdpwdqf and review of laboratory resultsAbnormBon Secours Maryview Medical CenterPotassium [Moles/Vol]3.5 mmol/LLow3.7 - 5.3 mmol/LBon [facility] Protime-INRon [id number] Coag (PPP) [Relative time]1.2 {INR}[facility] HospitalComment on above: Therapeutic Range: Moderate Anticoagulant Intensity: INR = 2.0-3.0 High Anticoagulant Intensity: INR = 2.5-3.5 Interpretation and review of laboratory resultsAbnormBon [facility]ours [facility] PT Coag (PPP) [Time]15.4 sHighBon [facility] CBC with Auto Differentialon [id number] (Bld) [#/Vol]0.00 10*3/uLBon [facility] DaytonBasophils/100 WBC (Bld)0 %0 - 2 %[facility] Eosinophils (Bld) [#/Vol]0.00 10*3/uLBon [facility] DaytonEosinophils/100 WBC (Bld)0 %Low1 - 4 %[facility] HospitalErythrocyte distribution width (RBC) [Ratio]14.6 %High11.8 - 14.4 %[facility] HospitalHematocrit (Bld) [Volume fraction]40.1 %36.3 - 47.1 %[facility] HospitalHemoglobin (Bld) [Mass/Vol] 12.7 g/dL11.9 - 15.1 g/dLBon [facility] DaytonImmature granulocytes (Bld) [#/Vol]0.00 10*3/uLBon [facility] DaytonImmature granulocytes/100 WBC (Bld)0 %0Bon [facility] DaytonInterpretation and review of laboratory results AbnormalBon [facility] DaytonLymphocytes/100 WBC (Bld)10 %Low24 - 44 %Bon SecAv[facility] Bucyrus HospitalLymphocytes/100 WBC (Bld)2.51 %Bon [facility] CenterH (RBC) [Entitic mass]27.3 pg25.2 - 33.5 pgBon [facility] CenterHC (RBC) [Mass/Vol]31.7 g/dL28.4 - 34.8 g/dLBon SecPremier HealthV (RBC) [Entitic vol]86.2 fL82.6 - 102.9 fLBon [facility] DaytonMonocytes/100 WBC (Bld)4 %1 - 7 %Bon SecAvita [facility] System Bucyrus HospitalMonocytes/100 WBC (Bld)1.00 %HighCarilion Roanoke Community HospitalMorphology Eliu (Bld) [Interp]NormalBon SecAvita Health System Bucyrus HospitalNeutrophils/100 WBC (Bld)86 %High36 - 66 %Bon [facility] DaytonNucleated RBC/100 WBC (Bld) [Ratio]0.0 %0.0 per 100 WBCBon [facility] HealthPlatelet mean volume (Bld) [Entitic vol]9.7 fL8.1 - 13.5 fLBon SecBay[facility] Army [facility] Hospital HealthPlatelets (Bld) [#/Vol] 469 10*3/uLHighBon [facility] DaytonRBC (Bld) [#/Vol]4.65 10*6/uL3.95 - 5.11 m/uLBon [facility] DaytonSegmented neutrophils/100 WBC (Bld)21.59 %HighCarilion Roanoke Community HospitalWBC other (Bld) [#/Vol]25.1HighBon SecAurora Medical Center– BurlingtonCBC with Diffon 31-07-9897Hrx. Basophil0.00 k/uLNormal 0.0-0.2[facility] Kindred HospitalComment on above:Performed By: #### CRP, HCG, LIP, TROPI, CDP, CP #### [facility] [place] [address] Securities Adviser: Ruba Garg.Imm.Granulocyte0.00 k/uLNormal0.00-0.30[facility] Medical CenterComment on above:Performed By: #### CRP, HCG, LIP, TROPI, CDP, CP #### [facility] [address] [place] [address] Securities Adviser: Ruba Garg.Neutrophil (Seg)21.59 k/uLHigh1.8-7.7[facility] Medical CenterComment on above:Performed By: #### CRP, HCG, LIP, TROPI, CDP, CP #### [facility] [address] [place] [address] Securities Adviser: Dioni Merlos MDBasophils/100 WBC (Bld)0 %Normal0-2MKaiser Permanente San Francisco Medical CenterComment on above:Performed By: #### CRP, HCG, LIP, TROPI, CDP, CP #### [place] [address] Securities Adviser: Dioni Merlos MDEosinophils (Bld) [#/Vol]0.00 10*3/uLNormal 0.0-0.4[facility] Medical CenterComment on above:Performed By: #### CRP, HCG, LIP, TROPI, CDP, CP #### [facility] [address] [place] [address] Securities Adviser: Dioni Merlos MDEosinophils/100 WBC (Bld)0 %Low1-4[facility] Medical CenterComment on above:Performed By: #### CRP, HCG, LIP, TROPI, CDP, CP #### [facility] [address] [place] [address] Securities Adviser: Mayra Gargture granulocytes/100 WBC (Bld)0 %Normal0 [facility] Medical CenterComment on above:Performed By: #### CRP, HCG, LIP, TROPI, CDP, CP #### [facility] [address] [place] [address] Securities Adviser: Dioni Merlos MDLymphocytes (Bld) [#/Vol]2.51 10*3/uLNormal 1.0-4.8[facility] Medical CenterComment on above:Performed By: #### CRP, HCG, LIP, TROPI, CDP, CP #### [facility] [address] [place] [address] Securities Adviser: Dioni Merlos MDLymphocytes/100 WBC (Bld)10 %Fbj09-81ApcbtUniversity Hospitals Ahuja Medical CenterComment on above:Performed By: #### CRP, HCG, LIP, TROPI, CDP, CP #### [facility] [address] [place] [address] Securities Adviser: JAN Gargonocytes (Bld) [#/Vol]1.00 10*3/uLHigh0.1-0.8 [facility] Medical CenterComment on above:Performed By: #### CRP, HCG, LIP, TROPI, CDP, CP #### [facility] [address] [place] [address] Securities Adviser: JAN Gargonocytes/100 WBC (Bld)4 %Normal1-7[facility] Medical CenterComment on above:Performed By: #### CRP, HCG, LIP, TROPI, CDP, CP #### [facility] [address] [place] [phone] Securities Adviser: JAN Gargorphology Eliu (Bld) [Interp]NormalNormalUniversity Hospitals Ahuja Medical CenterComment on above:Performed By: #### CRP, HCG, LIP, TROPI, CDP, CP #### [facility] [address] [place] [address] Securities Adviser: Dioni Merlos MDNeutrophil (Seg)86 %Fhpq10-20XignqUniversity Hospitals Ahuja Medical CenterComment on above:Performed By: #### CRP, HCG, LIP, TROPI, CDP, CP #### [facility] [address] [place] [phone] Securities Adviser: Dioni Merlos MDErythrocyte distribution width (RBC) [Ratio]14.6 %High11.8-14.4[facility] Medical CenterComment on above:Performed By: #### CRP, HCG, LIP, TROPI, CDP, CP #### [address] [address] Securities Adviser: Dioni Merlos MDHematocrit (Bld) [Volume fraction]40.1 %Normal 36.3-47.1MKaiser Permanente San Francisco Medical CenterComment on above:Performed By: #### CRP, HCG, LIP, TROPI, CDP, CP #### [address] [address] Securities Adviser: Dioni Merlos MDHemoglobin (Bld) [Mass/Vol]12.7 g/dLNormal 11.9-15.1MKaiser Permanente San Francisco Medical CenterComment on above:Performed By: #### CRP, HCG, LIP, TROPI, CDP, CP #### [address] [address] Securities Adviser: JAN GargCH (RBC) [Entitic mass]27.3 lrMjtguf29.2-33.5 [facility] Medical CenterComment on above:Performed By: #### CRP, HCG, LIP, TROPI, CDP, CP #### [address] [address] Securities Adviser: JAN GargCHC (RBC) [Mass/Vol]31.7 g/eNAzouks77.4-34.8 [facility] Medical CenterComment on above:Performed By: #### CRP, HCG, LIP, TROPI, CDP, CP #### [facility] [address] [place] [address] Securities Adviser: JAN GargCV (RBC) [Entitic vol]86.2 dMKefdsn14.6-102.9 [facility] Medical CenterComment on above:Performed By: #### CRP, HCG, LIP, TROPI, CDP, CP #### [address] [address] Securities Adviser: GAYATRI Garg Automated0.0 per 100 WBCNormal0.0[facility] Medical CenterComment on above:Performed By: #### CRP, HCG, LIP, TROPI, CDP, CP #### [address] [address] Securities Adviser: Natalia Garg mean volume (Bld) [Entitic vol]9.7 fL Normal8.1-13.5[facility] Medical CenterComment on above:Performed By: #### CRP, HCG, LIP, TROPI, CDP, CP #### [facility] [address] [place] [address] Securities Adviser: Lionel Garg (Bld) [#/Vol]469 10*3/rFJywh203-743 [facility] CenterComment on above:Performed By: #### CRP, HCG, LIP, TROPI, CDP, CP #### [address] [address] Securities Adviser: THEODORE GargBC (Bld) [#/Vol]4.65 10*6/uLNormal3.95-5.11 [facility] CenterComment on above:Performed By: #### CRP, HCG, LIP, TROPI, CDP, CP #### [address] [address] Securities Adviser: GIANNA Garg (Bld) [#/Vol]25.1 10*3/uLHigh3.5-11.3[facility] CenterComment on above:Performed By: #### CRP, HCG, LIP, TROPI, CDP, CP #### [facility] [address] [phone] Securities Adviser: Dioni Merlos, MDCT ABDOMEN PELVIS W IV CONTRASTon [id number] ABDOMEN PELVIS W IV CONTRASTEXAMINATION: CT OF [...] Signed by: Shayna Quiles MD 05/01/24 Final resultNormalUniversity Hospitals Ahuja Medical CenterCT Abdomen and Pelvis W contrast Bette [id number] compatible with active Crohn's disease with complex [...] attention to on follow-up imaging is recommended. [facility] RIS CONSOLIDATEDEXAMINATION: CT OF THE ABDOMEN AND [...] to on follow-up imaging is recommended. [facility] 911 ViewRadiology Study observation (narrative)eegoesPA Abdomen and Pelvis W contrast IVOrdered By: Shayna Quiles on 05-01-2024 [facility] [address] Work Phone: Comp Metabolic Profon [id number] [Mass/Vol]3.7 g/dLNormal3.5-5.2[facility] Kindred HospitalComment on above:Performed By: #### CRP, HCG, LIP, TROPI, CDP, CP #### [facility] [address] [place] [address] [phone] Securities Adviser: Dioni Merlos, MDAlbumin/Glob Ratio1.7Kgyure9.0-2.5[facility] Medical CenterComment on above:Performed By: #### CRP, HCG, LIP, TROPI, CDP, CP #### [facility] [address] [place] [address] [phone] Securities Adviser: Kelvin Gargkaline Ovls998 U/GRexg83-118UlfibUniversity Hospitals Ahuja Medical CenterComment on above:Performed By: #### CRP, HCG, LIP, TROPI, CDP, CP #### [address] [address] Securities Adviser: Dioni Merlos MDALT [Catalytic activity/Vol]14 U/XZsnkow35-12 [facility] Medical CenterComment on above:Performed By: #### CRP, HCG, LIP, TROPI, CDP, CP #### [address] [address] Securities Adviser: Dioni Merlos MDAnion gap [Moles/Vol]16 mmol/LNormal9-16[facility] Medical CenterComment on above:Performed By: #### CRP, HCG, LIP, TROPI, CDP, CP #### [address] [address] Securities Adviser: Dioni Merlos MDAST [Catalytic activity/Vol]19 U/QTxfsaz45-91 [facility] Medical CenterComment on above:Performed By: #### CRP, HCG, LIP, TROPI, CDP, CP #### [address] [address] Securities Adviser: Dioni Merlos MDBilirubin [Mass/Vol]0.5 mg/dLNormal0.00-1.20 [facility] Medical CenterComment on above:Performed By: #### CRP, HCG, LIP, TROPI, CDP, CP #### [address] [address] Securities Adviser: Dioni Merlos MDCalcium [Mass/Vol]9.3 mg/dLNormal8.6-10.4[facility] Medical CenterComment on above:Performed By: #### CRP, HCG, LIP, TROPI, CDP, CP #### [address] [address] Securities Adviser: Dioni Merlos MDChloride [Moles/Vol]94 mmol/NFuf27-462TpvcbUniversity Hospitals Ahuja Medical CenterComment on above:Performed By: #### CRP, HCG, LIP, TROPI, CDP, CP #### [facility] [address] [place] [address] Securities Adviser: ANGIE GargO2 [Moles/Vol]26 mmol/MExxyby55-82AwrvwUniversity Hospitals Ahuja Medical CenterComment on above:Performed By: #### CRP, HCG, LIP, TROPI, CDP, CP #### [place] [address] Securities Adviser: ANGIE Gargreatinine [Mass/Vol]0.7 mg/dLNormal0.50-0.90 [facility] Medical CenterComment on above:Performed By: #### CRP, HCG, LIP, TROPI, CDP, CP #### [address] [address] Securities Adviser: Dioni Merlos MDGFR/1.73 sq M.predicted among non-blacks [...] CRP, HCG, LIP, TROPI, CDP, CP #### [facility] [address] [place] [address] Securities Adviser: Dioni Merlos MDGlucose [Mass/Vol]129 mg/bXAbwq17-60JtqniKaiser Permanente San Francisco Medical CenterComment on above:Performed By: #### CRP, HCG, LIP, TROPI, CDP, CP #### [facility] [address] [place] [address] Securities Adviser: RACHID Gargotassium [Moles/Vol]3.0 mmol/LLow3.7-5.3MKaiser Permanente San Francisco Medical CenterComment on above:Result Comment: SPECIMEN SLIGHTLY HEMOLYZED, RESULTS MAY BE ADVERSELY AFFECTED.Performed By: #### CRP, HCG, LIP, TROPI, CDP, CP #### [facility] [address] [place] [phone] Securities Adviser: Dioni Merlos MDProtein [Mass/Vol]7.7 g/dLNormal6.6-8.7University Hospitals Ahuja Medical CenterComment on above:Performed By: #### CRP, HCG, LIP, TROPI, CDP, CP #### [facility] [address] [place] [address] Securities Adviser: Dioni Merlos MDSodium [Moles/Vol]136 mmol/BXlaron130-337XoevrUniversity Hospitals Ahuja Medical CenterComment on above:Performed By: #### CRP, HCG, LIP, TROPI, CDP, CP #### [facility] [address] [place] [address] Securities Adviser: Dioni Merlos MDUrea nitrogen [Mass/Vol]3 mg/dLLow6-20[facility] Ahuja Medical CenterComment on above:Performed By: #### CRP, HCG, LIP, TROPI, CDP, CP #### [facility] [address] [place] [phone] Securities Adviser: Dioni Merlos [facility] CITYomprehensive Metabolic Panelon 05-01-2024 Albumin [Mass/Vol]3.7 g/dL3.5 - 5.2 g/dLBon [facility] DaytonAlbumin/Globulin [Mass ratio]1.0 {ratio}1.0 - 2.5Bon [facility] DaytonALP [Catalytic activity/Vol]117 U/LHigh35 - 104 U/LBon [facility] DaytonALT [Catalytic activity/Vol]14 U/L10 - 35 U/LBon [facility] DaytonAnion gap [Moles/Vol]16 mmol/L9 - 16 mmol/LBon [facility] FrontalRain TechnologiesAST [Catalytic activity/Vol]19 U/L10 - 35 U/LBon [facility] FrontalRain TechnologiesBilirubin [Mass/Vol]0.5 mg/dL0.00 - 1.20 mg/dL Bon [facility] HelenaPeerzCalcium [Mass/Vol]9.3 mg/dL8.6 - 10.4 mg/dLBon [facility] FrontalRain TechnologiesChloride [Moles/Vol]94 mmol/LLow98 - 107 mmol/LBon [facility] FrontalRain TechnologiesCO2 [Moles/Vol]26 mmol/L20 - 31 mmol/LBon [facility] FrontalRain TechnologiesCreatinine [Mass/Vol]0.7 mg/dL0.50 - 0.90 mg/dLBon [facility] FrontalRain TechnologiesEst, Glom Filt Rate- PINFBon [facility] St. HelenaPeerzComment on above: These results are not intended [...] that affects renal tubular secretion. Glucose [Mass/Vol]129 mg/aQYsan52 - 99 mg/dLBon [facility] HelenaPeerz Interpretation and review of laboratory resultsAbnormalCarilion Roanoke Community Hospital Potassium [Moles/Vol]3.0 mmol/LLow3.7 - 5.3 mmol/LBon [facility] [employer] Comment on above:SPECIMEN SLIGHTLY HEMOLYZED, RESULTS MAY BE ADVERSELY AFFECTED. Protein [Mass/Vol]7.7 g/dL6.6 - 8.7 g/dLBon [facility] FrontalRain TechnologiesSodium [Moles/Vol]136 mmol/L136 - 145 mmol/LBon St. Mary'S HospitalPhorestUrea nitrogen [Mass/Vol]3 mg/dLLow6 - 20 mg/dLBon [facility] FrontalRain TechnologiesHCG Qualitative, Serumon [id number] ( test) QlNegativeNEGATIVEPage Memorial HospitalPeerz Comment on above:Specimens with hCG levels near the threshold of the test (25 mIU/mL) may give a negative or indeterminate result. In such cases, another test should be performed with a new specimen in 48-72 hours. If early is suspected clinically in this setting, correlation with quantitative serum b-hCG level is suggested. [facility] has confirmed the use of plasma for this test. This has not been cleared or approved by the U.S. Food and Drug Administration. The FDA has determined that such clearance is not necessary. Bon [facility] DaytonHCG Screen, Bloodon 12-00-5540KNO Screen, BloodNegative NormalNEGMercy Kindred HospitalComment on above:Result Comment: Specimens with hCG levels near the threshold of the test (25 mIU/mL) may give a negative or indeterminate result. In such cases, another test should be performed with a new specimen in 48-72 hours. If early is suspected clinically in this setting, correlation with quantitative serum b-hCG level is suggested. [facility] has confirmed the use of plasma for this test. This has not been cleared or approved by the U.S. Food and Drug Administration. The FDA has determined that such clearance is not necessary.Performed By: #### CRP, HCG, LIP, TROPI, CDP, CP #### [facility] [address] [place] [address] Securities Adviser: Dioni Merlos MDLactic Acidon 49-79-6596Usaoxd Acid, Whole Blood 0.9 mmol/L0.7 - 2.1 mmol/LBon [facility]ings Health SystemLactic Acid,Whole Bl0.9 mmol/LNormal0.7-2.1MKaiser Permanente San Francisco Medical CenterComment on above:Performed By: #### LACTIC #### [facility] [address] [place] [address] Securities Adviser: Dioni Merlos MDInterpretation and review of laboratory results AbnormalBon [facility] DaytonLactic Acid, Whole Blood2.4 mmol/LHigh0.7 - 2.1 mmol/LBon [facility] Health SystemLactic Acid,Whole Bl2.4 mmol/LHigh0.7-2.1MercJerold Phelps Community HospitalComment on above:Performed By: #### CRP, HCG, LIP, TROPI, CDP, CP #### [facility] [address] [place] [address] [phone] Securities Adviser: Dioni Merlos MDLipaseon 51-48-7680Pjsygg [Catalytic activity/Vol]20 U/L13 - 60 U/LBon [facility]bay[facility] Odimax HealthLipase [Catalytic activity/Vol]20 U/ZMmrgue64-52PbytxFairchild Medical CenterComment on above: Performed By: #### CRP, HCG, LIP, TROPI, CDP, CP #### [facility] [address] [place] [address] [phone] Securities Adviser: JAN Gargicroscopic Urinalysison 74-10-0150Kvjaiwpe LM Ql (Urine sed)NoneNoneBon [facility] FrontalRain TechnologiesCasts LM.LPF (Urine sed) [#/Area] None Reference range defined for non-centrifuged specimen.Bon [facility] FrontalRain TechnologiesEpithelial cells LM.HPF (Urine sed) [#/Area][address] Mary'S HospitalPhorestRBC LM.HPF (Urine sed) [#/Area]2 TO 5Bon [facility] FrontalRain TechnologiesComment on above:Reference range defined for non-centrifuged specimen.WBC LM.HPF (Urine sed) [#/Area]5 TO 10Bon [facility] FrontalRain TechnologiesBon SecSeamless HealthNo Panel Informationon 71-76-2966Mox [facility] FrontalRain TechnologiesUA w/Reflex Cultureon 05-01-2024 Bilirubin, SemiQt,UrNegativeNormalNEGMerFairchild Medical CenterComment on above:Performed By: #### CRP, HCG, LIP, TROPI, CDP, CP #### [facility] [address] [place] [address] [phone] Securities Adviser: Dioni Merlos MDBlalia, UrineTRACEAbnormalNEGUniversity Hospitals Ahuja Medical CenterComment on above:Performed By: #### CRP, HCG, LIP, TROPI, CDP, CP #### [facility] [address] [place] [address] [phone] Securities Adviser: ANGIE Garglarity (U)ClearNormalCLEARMercy Kindred HospitalComment on above:Performed By: #### CRP, HCG, LIP, TROPI, CDP, CP #### [facility] [address] [place] [address] Securities Adviser: ANGIE Gargolor (U)YellowNormalYELMercy Kindred HospitalComment on above:Performed By: #### CRP, HCG, LIP, TROPI, CDP, CP #### [facility] [address] [place] [address] Securities Adviser: Dioni Merlos MDGlucose Ql (U)NegativeNormalNEGMerFairchild Medical CenterComment on above:Performed By: #### CRP, HCG, LIP, TROPI, CDP, CP #### [facility] [address] [place] [address] Securities Adviser: Dioni Merlos MDKetones Ql (U)NegativeNormalNEGMerFairchild Medical CenterComment on above:Performed By: #### CRP, HCG, LIP, TROPI, CDP, CP #### [facility] [address] [place] [address] Securities Adviser: Dioni Merlos MDLeukocyte esterase Test strip Ql (U)SMALL AbnormalNEGUniversity Hospitals Ahuja Medical CenterComment on above:Performed By: #### CRP, HCG, LIP, TROPI, CDP, CP #### [facility] [address] [place] [address] Securities Adviser: Dioni Merlos MDNitrite,UrNegativeNormalNEGUniversity Hospitals Ahuja Medical CenterComment on above:Performed By: #### CRP, HCG, LIP, TROPI, CDP, CP #### [facility] [address] [place] [address] Securities Adviser: Dioni Merlos [facility],Ur6.8Mzbrmh7.0-8.0[facility] Hospitals Ahuja Medical CenterComment on above:Performed By: #### CRP, HCG, LIP, TROPI, CDP, CP #### [facility] [place] [address] Securities Adviser: RACHID Gargrotein Ql (U)NegativeNormalNEGUniversity Hospitals Ahuja Medical CenterComment on above:Performed By: #### CRP, HCG, LIP, TROPI, CDP, CP #### [facility] [address] [place] [phone] Securities Adviser: Shy Garg. [place],Ur1.616Kmht9.005-1.030[facility] Hospitals Ahuja Medical CenterComment on above:Performed By: #### CRP, HCG, LIP, TROPI, CDP, CP #### [facility] [address] [place] [address] Securities Adviser: Dyan Gargbilinogen,UrNormalNormal0.0-1.0[facility] Ahuja Medical CenterComment on above:Performed By: #### CRP, HCG, LIP, TROPI, CDP, CP #### [facility] [address] [place] [address] Securities Adviser: KIN Garg DUP ABD PEL RETRO SCROT LIMITEDon 05-01-2024 US DUP ABD PEL RETRO SCROT LIMITEDEXAMINATION: PELVIC ULTRASOUND 05/01/2024 TECHNIQUE: Transvaginal pelvic ultrasound was performed. COMPARISON: None . 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 Interpreted by: Cristóbal Qiu MD Preliminary resultNormSheltering Arms HospitalUS NON OB TRANSVAGINALon 11-25-1521QW NON OB TRANSVAGINALEXAMINATION: PELVIC ULTRASOUND 05/01/2024 TECHNIQUE: Transvaginal pelvic ultrasound was performed. COMPARISON: None. 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 Right ovarian 5.5 cm simple cystic structure most compatible with dominant follicle. 2. Otherwise, unremarkable pelvic ultrasound. RECOMMENDATIONS: Pathology: Right ovarian probable benign cyst measuring 5.4 cm.Recommend follow-up pelvic ultrasound in 3-6 months. [facility] RIS CONSOLIDATEDEXAMINATION: PELVIC ULTRASOUND 05/01/2024 TECHNIQUE: Transvaginal pelvic ultrasound was performed. COMPARISON: None. 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 [facility] CenterRadiology Study observation (narrative)[facility] HospitalUrinalysis with Reflex to Cultureon [id number] Ql (U)NegativeNEGATIVECarilion Roanoke Community HospitalClarity (U) ClearClearBon [facility] Hollywood HealthColor (U)YellowYellowCarilion Roanoke Community Hospital Glucose Test strip (U) [Mass/Vol]NegativeNEGATIVE mg/dLBon [facility] Hemoglobin Auto test strip Ql (U)TRACEAbnormalNEGATIVEBon [facility] Interpretation and review of laboratory resultsAbnormalBon [facility] Ketones (U) [Mass/Vol]NegativeNEGATIVE mg/dLBon [facility] DaytonLeukocyte esterase Test strip Ql (U)SMALLAbnormalNEGATIVEBon [facility] DaytonNitrite Ql (U)NegativeNEGATIVEBon [facility] DaytonpH (U)6.5 [pH]5.0 - 8.0Bon [facility] DaytonProtein (U) [Mass/Vol]NegativeNEGATIVE mg/dLBon [facility] DaytonSpecific gravity (U) [Rel density]1.816Kfyi4.005 - 1.030Bon [facility] DaytonUrobilinogen Qn (U)Normal0.0 - 1.0 EU/dLBon [facility]ings Health SystemUrinalysis,Microon 08-13-5568KrjuibcdPodoCwreugHTVNLzjzd St. Vincent Medical CenterComment on above:Performed By: #### CRP, HCG, LIP, TROPI, CDP, CP #### [facility] [address] [place] [phone] Securities Adviser: ANGIE GargastsNoneNocannon memorial hospital0-8University Hospitals Ahuja Medical CenterComment on above:Result Comment: Reference range defined for non- centrifuged specimen.Performed By: #### CRP, HCG, LIP, TROPI, CDP, CP #### [facility] [address] [place] [address] [phone] Securities Adviser: Dioni Merlos MDEpithelial cells LM Ql (Urine sed)5 TO 10Normal 0-5[facility] Ahuja Medical CenterComment on above:Performed By: #### CRP, HCG, LIP, TROPI, CDP, CP #### [facility] [address] [place] [address] Securities Adviser: Dioni Merlos MDUrine RBC's2 TO 4Rhfdzt7-0RcmidUniversity Hospitals Ahuja Medical CenterComment on above:Result Comment: Reference range defined for non- centrifuged specimen.Performed By: #### CRP, HCG, LIP, TROPI, CDP, CP #### [facility] [address] [place], [place] [phone] Securities Adviser: Dioni Merlos MDUrine WBC's5 TO 30Vdkxse4-4YpfxyUniversity Hospitals Ahuja Medical CenterComment on above:Performed By: #### CRP, HCG, LIP, TROPI, CDP, CP #### [facility] [address] [place], [place] [phone] Securities Adviser: Dioni Merlos, MDXR CHEST 2 VWSon [id number] CHEST 2 VWSXR CHEST 2 VWS PA and lateral chest, 2 views, dated 08/23/2023 at 4:44 PM INDICATION: Severe cough, fever. FINDINGS: No comparisons available. No airspace disease or edema. No effusions. The heart and mediastinal structures are within normal limits. IMPRESSION: No acute cardiopulmonary abnormality seen. Finalized by Myron Varela MD on 04/22/2024 4:47 PMNGarfield Medical Center Ambulatory PPGXR Chest PA and Lateralon [id number] and lateral chest, 2 views, dated 08/23/2023 [...] Myron Varela MD on 04/22/2024 4:47 PM [facility] CenterRadiology Study observation (narrative)[facility] CenterXR Chest PA and LateralOrdered By: Myron Varela on [id number] Valley Hospital Work Phone: Calprotectin, Fecalon 11-47-6228Vbbasotizpoy, Aifcu015 ug/gHigh<=49[facility]huja Medical CenterComment on above:Result Comment: (NOTE) REFERENCE INTERVAL: Calprotectin, Fecal by Immunoassay Less than 50 ug/g.........Normal 50-120 ug/g...............Borderline elevated, test should be re-evaluated in 4-6 weeks. 121 ug/g or greater.......Elevated Performed By: [facility] [address] [place] [phone] Die Finisher Forging: Hugo Ramsey MD, PhD CLIA Number: [id number] By: #### CBC, LACTIC #### [facility] [address] [place] [address] Securities Adviser: Dioni Merlos MDQuantiFERON TBon 10-82-0153Lxdzqq [place] minus NIL 9.95 IU/mLNormalUniversity Hospitals Ahuja Medical CenterComment on above:Performed By: #### CRP #### [address] [phone] Securities Adviser: Dioni Merlos MDQuanti TB Gold PlusNegativeNormalNegativeUniversity Hospitals Ahuja Medical CenterComment on above:Result Comment: (NOTE) INTERPRETIVE INFORMATION:Quantiferon TB [...] Mycobacterium tuberculosis Infection -- [place], 2010 (http://www.cdc.gov/mmwr/preview/mmwrhtml/bk4512k4.htm), for more information concerning test performance in low-prevalence populations and use in occupational screening. Performed By: [facility] [address] [place] [phone] Die Finisher Forging: Hugo Ramsey MD, PhD CLIA Number: [id number] By: #### CRP #### [place] [address] Securities Adviser: Dioni Merlos MDQuanti TB1 minus NIL0.00 IU/mLNormal<=0.34[facility] Hospit[facility] Ahuja Medical CenterComment on above:Performed By: #### CRP #### [place] [address] Securities Adviser: Dioin Merlos MDQuanti TB2 minus NIL0.00 IU/mLNormal<=0.34[facility] Ahuja Medical CenterComment on above:Performed By: #### CRP #### [employer] [address] [place] [address] Securities Adviser: Dioni Merlos MDQuantiFERON NIL0.05 IU/mLNormalUniversity Hospitals Ahuja Medical CenterComment on above:Performed By: #### CRP #### [facility] [address] [place] [address] Securities Adviser: Shlomo Garg Metabolic Profon 85-54-4175Gfyqf gap [Moles/Vol]8 mmol/LLow9-16[facility] Ahuja Medical CenterComment on above: Performed By: #### CBC, LACTIC #### [facility] [address] [place] [address] Securities Adviser: ANGIE Gargalcium [Mass/Vol]7.8 mg/dLLow8.6-10.4[facility] Ahuja Medical CenterComment on above:Performed By: #### CBC, LACTIC #### [facility] [address] [place] [address] Securities Adviser: Dioni Merlos MDChloride [Moles/Vol]107 mmol/TLaihge42-903TcnuuUniversity Hospitals Ahuja Medical CenterComment on above:Performed By: #### CBC, LACTIC #### [facility] [address] [place] [address] Securities Adviser: Dioni Merlos MDCO2 [Moles/Vol]26 mmol/SHbqzvz92-53RtdniUniversity Hospitals Ahuja Medical CenterComment on above:Performed By: #### CBC, LACTIC #### [facility] [address] [place] [address] Securities Adviser: ANGIE Gargreatinine [Mass/Vol]0.6 mg/dLNormal0.50-0.90 [facility]ja Medical CenterComment on above:Performed By: #### CBC, LACTIC #### [facility] [address] [place] [address] Securities Adviser: Dioni Merlos MDGFR/1.73 sq M.predicted among non-blacks [...] secretion.Performed By: #### CBC, LACTIC #### [facility] [address] [place] [address] [place] [address] Securities Adviser: Dioni Merlos MDGlucose [Mass/Vol]98 mg/vJSpjiiq27-55PhedvKaiser Permanente San Francisco Medical CenterComment on above:Performed By: #### CBC, LACTIC #### [facility] [address] [place] [address] Securities Adviser: Dioni Merlos MDPotassium [Moles/Vol]3.7 mmol/LNormal3.7-5.3 [facility] Medical CenterComment on above:Performed By: #### CBC, LACTIC #### [facility] [address] [place] [address] Securities Adviser: Dioni Merlos MDSodium [Moles/Vol]141 mmol/ZKrmaaq137-508ThhnxUniversity Hospitals Ahuja Medical CenterComment on above:Performed By: #### FOZIA, LACTIC #### [facility] [address] [place] [address] 9[address] Securities Adviser: Dioni Merlos MDUrea nitrogen [Mass/Vol]3 mg/dLLow6-20[facility]ja Medical CenterComment on above:Performed By: #### CBC, LACTIC #### [facility] [address] [place] [address] 30677 Securities Adviser: Dioni Merlos [facility] with Diffon 41-44-4143Nhh. Basophil<0.03 Normal0.00-0.20[facility]huja Medical CenterComment on above:Performed By: #### CBC, LACTIC #### [facility] [address] [place] [address] 91162 Securities Adviser: Ruba Garg. Eosinophil<0.46Pihluh4.00-0.44[facility] Ahuja Medical CenterComment on above:Performed By: #### CBC, LACTIC #### [facility] [address] [place] [address] 9[address]84 Securities Adviser: Ruba Garg.Imm.Granulocyte0.06 k/uLNormal0.00-0.30[facility]ja Medical CenterComment on above:Performed By: #### CBC, LACTIC #### [facility] [address] [place] [address] 31504 Securities Adviser: Ruba Garg.Neutrophil (Seg)8.93 k/uLHigh1.50-8.10[facility] Medical CenterComment on above:Performed By: #### CBC, LACTIC #### [facility] [address] [place] [address] 8[address] Securities Adviser: Dioni Merlos MDBasophils/100 WBC (Bld)0 %Normal0-2MKaiser Permanente San Francisco Medical CenterComment on above:Performed By: #### CBC, LACTIC #### [address] [address] Securities Adviser: Dioni Merlos MDEosinophils/100 WBC (Bld)0 %Low1-4[facility]ja Medical CenterComment on above:Performed By: #### CBC, LACTIC #### [address] [address] Securities Adviser: Dioni Merlos MDErythrocyte distribution width (RBC) [Ratio]14.0 %Fuxslr79.8-14.4[facility]ja Medical CenterComment on above:Performed By: #### CBC, LACTIC #### [address] [address] Securities Adviser: Dioni Merlos MDHematocrit (Bld) [Volume fraction]35.1 %Low 36.3-47.1MKaiser Permanente San Francisco Medical CenterComment on above:Performed By: #### CBC, LACTIC #### [address] [address] Securities Adviser: Dioni Merlos MDHemoglobin (Bld) [Mass/Vol]10.4 g/dLLow11.9-15.1 [facility] Medical CenterComment on above:Performed By: #### CBC, LACTIC #### [facility] [address] [place] [address] 26065 Securities Adviser: Mayra Gargture granulocytes/100 WBC (Bld)1 %Rtdy3XafdlUniversity Hospitals Ahuja Medical CenterComment on above:Performed By: #### CBC, LACTIC #### [place] [address] Securities Adviser: Dioni Merlos MDLymphocytes (Bld) [#/Vol]0.74 10*3/uLLow 1.10-3.70[facility]ja Medical CenterComment on above:Performed By: #### CBC, LACTIC #### [place] [address] Securities Adviser: Dereck Gargmphocytes/100 WBC (Bld)7 %Qlu19-35QbzahUniversity Hospitals Ahuja Medical CenterComment on above:Performed By: #### CBC, LACTIC #### [place] [address] Securities Adviser: JAN GargCH (RBC) [Entitic mass]29.5 nxAjenld39.2-33.5 [facility] Medical CenterComment on above:Performed By: #### CBC, LACTIC #### [place] [address] Securities Adviser: JAN GargCHC (RBC) [Mass/Vol]29.6 g/sUVcnzhy23.4-34.8 [facility] Medical CenterComment on above:Performed By: #### CBC, LACTIC #### [address] [address] Securities Adviser: JAN GargCV (RBC) [Entitic vol]99.4 aRDxcxxw78.6-102.9 [facility] Medical CenterComment on above:Performed By: #### CBC, LACTIC #### [address] [address] Securities Adviser: JAN Gargonocytes (Bld) [#/Vol]0.32 10*3/uLNormal 0.10-1.20[facility] Medical CenterComment on above:Performed By: #### CBC, LACTIC #### [address] [address] Securities Adviser: JAN Gargonocytes/100 WBC (Bld)3 %Normal3-12[facility] Medical CenterComment on above:Performed By: #### CBC, LACTIC #### [address] [address] Securities Adviser: Karishma Gargophil (Seg)89 %Qssp78-15ZhcxcUniversity Hospitals Ahuja Medical CenterComment on above:Performed By: #### CBC, LACTIC #### [address] [address] Securities Adviser: Dioni Merlos MDNRBC Automated0.0 per 100 WBCNormal0.0[facility] Ahuja Medical CenterComment on above:Performed By: #### CBC, LACTIC #### [address] [address] Securities Adviser: Latisha Gargtelet mean volume (Bld) [Entitic vol]9.2 fL Normal8.1-13.5[facility]ja Medical CenterComment on above:Performed By: #### CBC, LACTIC #### [address] [address] Securities Adviser: RACHID Garglatelets (Bld) [#/Vol]283 10*3/mVLmncko018-940 [facility] Medical CenterComment on above:Performed By: #### CBC, LACTIC #### [address] [address] Securities Adviser: THEODORE GargBC (Bld) [#/Vol]3.53 10*6/uLLow3.95-5.11[facility] Medical CenterComment on above:Performed By: #### CBC, LACTIC #### [facility] [address] [place] [address] Securities Adviser: HONG GargBC (d) [#/Vol]10.1 10*3/uLNormal3.5-11.3MKaiser Permanente San Francisco Medical CenterComment on above:Performed By: #### CBC, LACTIC #### [address] [address] Securities Adviser: RE Garg/Folate Panelon 32-82-0479Wswawggxp (Vitamin B12) [Mass/Vol]pg/qDZyv796-4506EjcqzUniversity Hospitals Ahuja Medical CenterComment on above: Performed By: #### CRP, HCG, LIP, TROPI, CDP, CP #### [facility] [address] [place] [address] [id number] Securities Adviser: Lorraine Garg Acid11.4 ng/mLNormal4.8-24.2MKaiser Permanente San Francisco Medical CenterComment on above:Performed By: #### CRP, HCG, LIP, TROPI, CDP, CP #### [address] [address] Securities Adviser: Shlomo Garg Metabolic Profon 60-12-2620Ptgez gap [Moles/Vol]7 mmol/LLow9-16[facility] Ahuja Medical CenterComment on above: Performed By: #### CRP, HCG, LIP, TROPI, CDP, CP #### [facility] [address] [place] [address] Securities Adviser: ANGIE Gargalcium [Mass/Vol]7.9 mg/dLLow8.6-10.4[facility] Ahuja Medical CenterComment on above:Performed By: #### CRP, HCG, LIP, TROPI, CDP, CP #### [facility] [address] [place] [address] Securities Adviser: ANGIE Garghloride [Moles/Vol]103 mmol/MOztvzf45-489YvqueUniversity Hospitals Ahuja Medical CenterComment on above:Performed By: #### CRP, HCG, LIP, TROPI, CDP, CP #### [facility] [address] [place] [address] Securities Adviser: Dioni Merlos MDCO2 [Moles/Vol]29 mmol/XKdmpep31-46ZazrdUniversity Hospitals Ahuja Medical CenterComment on above:Performed By: #### CRP, HCG, LIP, TROPI, CDP, CP #### [address] [address] Securities Adviser: ANGIE Gargreatinine [Mass/Vol]0.7 mg/dLNormal0.50-0.90 [facility]huja Medical CenterComment on above:Performed By: #### CRP, HCG, LIP, TROPI, CDP, CP #### [facility] [address] [place] [address] Securities Adviser: Dioni Merlos MDGFR/1.73 sq M.predicted among non-blacks [...] HCG, LIP, TROPI, CDP, CP #### [facility] [address] [place] [address] Securities Adviser: Dioni Merlos MDGlucose [Mass/Vol]91 mg/xJPxbdvb62-99Ilego Kindred HospitalComment on above:Performed By: #### CRP, HCG, LIP, TROPI, CDP, CP #### [facility] [address] [place] [address] Securities Adviser: RACHID Gargotassium [Moles/Vol]3.6 mmol/LLow3.7-5.3MKaiser Permanente San Francisco Medical CenterComment on above:Performed By: #### CRP, HCG, LIP, TROPI, CDP, CP #### [facility] [address] [place] [address] Securities Adviser: CASS Gargodium [Moles/Vol]139 mmol/OEtgwbe666-098ZmvymUniversity Hospitals Ahuja Medical CenterComment on above:Performed By: #### CRP, HCG, LIP, TROPI, CDP, CP #### [facility] [address] [place] [address] Securities Adviser: Dioni Merlos MDUrea nitrogen [Mass/Vol]6 mg/dLNormal6-20[facility]huja Medical CenterComment on above:Performed By: #### CRP, HCG, LIP, TROPI, CDP, CP #### [facility] [address] [place] [address] Securities Adviser: ANGIE Garg diff Ag + Toxinon 4C diff Ag + Toxin NegativeNormalNEGUniversity Hospitals Ahuja Medical CenterComment on above:Result Comment: No C. difficile antigen and Toxin Detected.Performed By: #### CBC, LACTIC #### [facility] [address] [place] [address] Securities Adviser: ANGIE GargBC with Diffon [id number]. Basophil<0.03 Normal0.00-0.20[facility]huja Medical CenterComment on above:Performed By: #### CRP, HCG, LIP, TROPI, CDP, CP #### [address] [address] Securities Adviser: Ruba Garg. Eosinophil<0.17Lzigwp8.00-0.44[facility] Ahuja Medical CenterComment on above:Performed By: #### CRP, HCG, LIP, TROPI, CDP, CP #### [place] [address] Securities Adviser: MDAbs. BritanyImm.Granulocyte0.04 k/uLNormal0.00-0.30[facility] Ahuja Medical CenterComment on above:Performed By: #### CRP, HCG, LIP, TROPI, CDP, CP #### [place] [address] Securities Adviser: Ruba Garg.Neutrophil (Seg)6.87 k/uLNormal1.50-8.10 [facility]ja Medical CenterComment on above:Performed By: #### CRP, HCG, LIP, TROPI, CDP, CP #### [place] [address] Securities Adviser: Dioni Merlos MDBasophils/100 WBC (Bld)0 %Normal0-2MKaiser Permanente San Francisco Medical CenterComment on above:Performed By: #### CRP, HCG, LIP, TROPI, CDP, CP #### [place] [address] Securities Adviser: Dioni Merlos MDEosinophils/100 WBC (Bld)0 %Low1-4[facility]ja Medical CenterComment on above:Performed By: #### CRP, HCG, LIP, TROPI, CDP, CP #### [address] [address] Securities Adviser: Dioni Merlos MDErythrocyte distribution width (RBC) [Ratio]13.7 %Jdmwyo71.8-14.4[facility]huja Medical CenterComment on above:Performed By: #### CRP, HCG, LIP, TROPI, CDP, CP #### [facility] [address] [place] [address] Securities Adviser: Dioni Merlos MDHematocrit (Bld) [Volume fraction]34.1 %Low 36.3-47.1MKaiser Permanente San Francisco Medical CenterComment on above:Performed By: #### CRP, HCG, LIP, TROPI, CDP, CP #### [facility] [address] [place] [address] Securities Adviser: Dioni Merlos MDHemoglobin (Bld) [Mass/Vol]10.5 g/dLLow11.9-15.1 [facility]ja Medical CenterComment on above:Performed By: #### CRP, HCG, LIP, TROPI, CDP, CP #### [place] [address] Securities Adviser: Mayra Gargture granulocytes/100 WBC (Bld)1 %Agjt8VmfxpUniversity Hospitals Ahuja Medical CenterComment on above:Performed By: #### CRP, HCG, LIP, TROPI, CDP, CP #### [facility] [address] [place] [address] Securities Adviser: Dereck Gargmphocytes (Bld) [#/Vol]1.01 10*3/uLLow 1.10-3.70[facility]huja Medical CenterComment on above:Performed By: #### CRP, HCG, LIP, TROPI, CDP, CP #### [facility] [address] [place] [address] Securities Adviser: Dereck Gargmphocytes/100 WBC (Bld)12 %Fwf47-82GyujgUniversity Hospitals Ahuja Medical CenterComment on above:Performed By: #### CRP, HCG, LIP, TROPI, CDP, CP #### [facility] [address] [place] [address] Securities Adviser: JAN GargCH (RBC) [Entitic mass]29.0 dxLqzzzu18.2-33.5 [facility] Medical CenterComment on above:Performed By: #### CRP, HCG, LIP, TROPI, CDP, CP #### [address] [address] Securities Adviser: JAN GargCHC (RBC) [Mass/Vol]30.8 g/oGDkdmqn86.4-34.8 [facility] Medical CenterComment on above:Performed By: #### CRP, HCG, LIP, TROPI, CDP, CP #### [address] [address] Securities Adviser: JAN GargCV (RBC) [Entitic vol]94.2 xHFijzrc99.6-102.9 [facility] Medical CenterComment on above:Performed By: #### CRP, HCG, LIP, TROPI, CDP, CP #### [address] [address] Securities Adviser: JAN Gargonocytes (Bld) [#/Vol]0.60 10*3/uLNormal 0.10-1.20[facility] Medical CenterComment on above:Performed By: #### CRP, HCG, LIP, TROPI, CDP, CP #### [address] [address] Securities Adviser: JAN Gargonocytes/100 WBC (Bld)7 %Normal3-12[facility] Medical CenterComment on above:Performed By: #### CRP, HCG, LIP, TROPI, CDP, CP #### [address] [address] Securities Adviser: Fer Gargutrophil (Seg)80 %Ekqd78-38VyoryUniversity Hospitals Ahuja Medical CenterComment on above:Performed By: #### CRP, HCG, LIP, TROPI, CDP, CP #### [facility] [address] [place] [address] Securities Adviser: GAYATRI Garg Automated0.0 per 100 WBCNormal0.0[facility]huja Medical CenterComment on above:Performed By: #### CRP, HCG, LIP, TROPI, CDP, CP #### [facility] [address] [place] [address] Securities Adviser: Natalia Garg mean volume (Bld) [Entitic vol]9.5 fL Normal8.1-13.5[facility]huja Medical CenterComment on above:Performed By: #### CRP, HCG, LIP, TROPI, CDP, CP #### [address] [address] Securities Adviser: Lionel Garg (Bld) [#/Vol]354 10*3/jQZxlobz820-075 [facility] Medical CenterComment on above:Performed By: #### CRP, HCG, LIP, TROPI, CDP, CP #### [facility] [address] [place] [address] Securities Adviser: FADY Garg (Bld) [#/Vol]3.62 10*6/uLLow3.95-5.11[facility] Medical CenterComment on above:Performed By: #### CRP, HCG, LIP, TROPI, CDP, CP #### [facility] [address] [place] [address] Securities Adviser: GIANNA Garg (Bld) [#/Vol]8.6 10*3/uLNormal3.5-11.3MKaiser Permanente San Francisco Medical CenterComment on above:Performed By: #### CRP, HCG, LIP, TROPI, CDP, CP #### [facility] [address] [place] [address] Securities Adviser: Luke Garg [facility] [phone] A Ab,IgM Non-ReactiveOhioHealth Van Wert HospitalComment on above:Performed By: #### CRP, HCG, LIP, TROPI, CDP, CP #### [facility] [address] [place] [address] Securities Adviser: Nora Garg Core Ab,IgMNon-ReactiveOhioHealth Van Wert HospitalComment on above:Performed By: #### CRP, HCG, LIP, TROPI, CDP, CP #### [facility] [address] [place] [address] Securities Adviser: Nora Garg Surf AgNon-ReactiveOhioHealth Van Wert HospitalComment on above:Performed By: #### CRP, HCG, LIP, TROPI, CDP, CP #### [facility] [address] [place] [address] Securities Adviser: Nora Garg AbNon-ReactiveOhioHealth Van Wert HospitalComment on above:Result Comment: The hepatitis C procedure [...] LIP, TROPI, CDP, CP #### [facility] [address] [place] [address] Securities Adviser: Alfredo Garg PCR [facility] [id number] sp PCRNEGATIVE: No Campylobacter spp. (jejuni or coli) DNA DetectedNoalCCherrington HospitalComment on above:Performed By: #### CRP, HCG, LIP, TROPI, CDP, CP #### [facility] [address] [place] [address] [place] [address] Securities Adviser: ZORAN Garg coli enterotox PCRNEGATIVE: No Enterotoxigenic E. coli (ETEC) Heat-labile and heat-stable (LT/ST)NormalEECNOhioHealth Grove City Methodist HospitalComment on above:Result Comment: DNA DetectedPerformed By: #### CRP, HCG, LIP, TROPI, CDP, CP #### [address] [address] Securities Adviser: Shavon Gargmonas sp PCRNegativeNocannon memorial hospitalPLEOhio State East HospitalComment on above:Performed By: #### CRP, HCG, LIP, TROPI, CDP, CP #### [address] [address] Securities Adviser: CASS Gargalmonella sp PCRNegativeNoUniversity Hospitals Beachwood Medical CenterComment on above:Performed By: #### CRP, HCG, LIP, TROPI, CDP, CP #### [address] [address] Securities Adviser: Cecilio Garggatoxin gene PCRNegativeNoAtrium Health Wake Forest Baptist Lexington Medical CenterTXOhio State East HospitalComment on above:Performed By: #### CRP, HCG, LIP, TROPI, CDP, CP #### [address] [address] Securities Adviser: Cecilio Garggella sp PCRNegativeNoAmerican Healthcare SystemsNEGUniversity Hospitals Ahuja Medical CenterComment on above:Performed By: #### CRP, HCG, LIP, TROPI, CDP, CP #### [address] [address] Securities Adviser: Lila Gargbrio sp PCRNEGATIVE: No Vibrio (V. vulnificus, V, parahaemolyticus and V. cholerae) DNANormalVIBNOhioHealth Grove City Methodist HospitalComment on above:Result Comment: DetectedPerformed By: #### CRP, HCG, LIP, TROPI, CDP, CP #### [facility] [address] [place] [address] Securities Adviser: Eder Garg gene PCRNegativeNormalYERNEGUniversity Hospitals Ahuja Medical CenterComment on above:Performed By: #### CRP, HCG, LIP, TROPI, CDP, CP #### [facility] [address] [place] [address] Securities Adviser: Dioni Merlos MDVitamin D 25 OHon 82-74-9949Dmvdfno D 25 OH21.0 ng/mLLow30.0-100.0[facility]ja Medical CenterComment on above:Result Comment: Reference Range: Vitamin D status Range Deficiency <20 ng/mL Mild Deficiency 20-30 ng/mL Sufficiency 30-100 ng/mL Toxicity >100 ng/mLPerformed By: #### CRP, HCG, LIP, TROPI, CDP, CP #### [facility] [address] [place] [address] Securities Adviser: Shlomo Garg Metabolic Profon 13-35-0515Hwtrk gap [Moles/Vol]9 mmol/LNormal9-16[facility]ja Medical CenterComment on above: Performed By: #### CBC, LACTIC #### [facility] [address] [place] [address] Securities Adviser: Dioni Merlos MDCalcium [Mass/Vol]8.5 mg/dLLow8.6-10.4[facility]ja Medical CenterComment on above:Performed By: #### CBC, LACTIC #### [facility] [address] [place] [address] Securities Adviser: Dioni Merlos MDChloride [Moles/Vol]100 mmol/FAfitxg30-390GwtdvUniversity Hospitals Ahuja Medical CenterComment on above:Performed By: #### CBC, LACTIC #### [address] [address] Securities Adviser: Dioni Merlos MDCO2 [Moles/Vol]31 mmol/PUwrtdv30-60CcniwUniversity Hospitals Ahuja Medical CenterComment on above:Performed By: #### CBC, LACTIC #### [address] [address] Securities Adviser: ANGIE Gargreatinine [Mass/Vol]0.6 mg/dLNormal0.50-0.90 [facility] Medical CenterComment on above:Performed By: #### FOZIA, LACTIC #### [address] [address] Securities Adviser: Dioni Merlos MDGFR/1.73 sq M.predicted among non-blacks [...] tubular secretion.Performed By: #### FOZIA, LACTIC #### [address] [address] Securities Adviser: Dioni Merlos MDGlucose [Mass/Vol]103 mg/xLBuft00-71QpdnnKaiser Permanente San Francisco Medical CenterComment on above:Performed By: #### CBC, LACTIC #### [facility] [address] [place] [address] Securities Adviser: Dioni Merlos MDPotassium [Moles/Vol]3.4 mmol/LLow3.7-5.3MKaiser Permanente San Francisco Medical CenterComment on above:Performed By: #### CBC, LACTIC #### [facility] [address] [place] [address] Securities Adviser: CASS Gargodium [Moles/Vol]140 mmol/OAxqkgv728-523EctlgUniversity Hospitals Ahuja Medical CenterComment on above:Performed By: #### CBC, LACTIC #### [facility] [address] [place] [address] Securities Adviser: Dioni Merlos MDUrea nitrogen [Mass/Vol]6 mg/dLNormal6-20[facility] Medical CenterComment on above:Performed By: #### CBC, LACTIC #### [facility] [address] [place] [address] Securities Adviser: ANGIE Garg-Reactive Proteinon [id number] [Mass/Vol]6.8 mg/LHigh0.0-5.0[facility] Medical CenterComment on above:Performed By: #### CRP #### [facility] [address] [place] [address] Securities Adviser: ANGIE GargBC with Diffon [id number]. Basophil0.00 k/uL Normal0.0-0.2MKaiser Permanente San Francisco Medical CenterComment on above:Performed By: #### CBC, LACTIC #### [facility] [address] [place] [address] Securities Adviser: MDAbs. BritanyImm.Granulocyte0.00 k/uLNormal0.00-0.30[facility] Medical CenterComment on above:Performed By: #### CBC, LACTIC #### [facility] [address] [place] [address] Securities Adviser: MDAbs. BritanyNeutrophil (Seg)12.46 k/uLHigh1.8-7.7[facility]ja Medical CenterComment on above:Performed By: #### CBC, LACTIC #### [facility] [address] [place] [address] Securities Adviser: Dioni Merlos MDBasophils/100 WBC (Bld)0 %Normal0-2MKaiser Permanente San Francisco Medical CenterComment on above:Performed By: #### CBC, LACTIC #### [address] [address] Securities Adviser: Dioni Merlos MDEosinophils (Bld) [#/Vol]0.00 10*3/uLNormal 0.0-0.4[facility] Medical CenterComment on above:Performed By: #### CBC, LACTIC #### [address] [address] Securities Adviser: Dioni Merlos MDEosinophils/100 WBC (Bld)0 %Low1-4[facility]ja Medical CenterComment on above:Performed By: #### CBC, LACTIC #### [address] [address] Securities Adviser: Dioni Merlos MDImmature granulocytes/100 WBC (Bld)0 %Normal0 [facility]ja Medical CenterComment on above:Performed By: #### CBC, LACTIC #### [address] [address] Securities Adviser: Dioni Merlos MDLymphocytes (Bld) [#/Vol]0.67 10*3/uLLow1.0-4.8 [facility] Medical CenterComment on above:Performed By: #### CBC, LACTIC #### [address] [address] Securities Adviser: Dioni Merlos MDLymphocytes/100 WBC (Bld)5 %Fbu21-58SyflgUniversity Hospitals Ahuja Medical CenterComment on above:Performed By: #### CBC, LACTIC #### [address] [address] Securities Adviser: JAN Gargonocytes (Bld) [#/Vol]0.27 10*3/uLNormal0.1-0.8 [facility] Medical CenterComment on above:Performed By: #### CBC, LACTIC #### [address] [address] Securities Adviser: JAN Gargonocytes/100 WBC (Bld)2 %Normal1-7[facility] Medical CenterComment on above:Performed By: #### CBC, LACTIC #### [facility] [address] [place] [address] Securities Adviser: JAN Gargorphology Eliu (Bld) [Interp]NormalNormalUniversity Hospitals Ahuja Medical CenterComment on above:Performed By: #### CBC, LACTIC #### [address] [address] Securities Adviser: Dioni Merlos MDNeutrophil (Seg)93 %Wsov36-56IdewuUniversity Hospitals Ahuja Medical CenterComment on above:Performed By: #### CBC, LACTIC #### [address] [address] Securities Adviser: Dioni Merlos MDErythrocyte distribution width (RBC) [Ratio]13.9 %Sxhoyk69.8-14.4[facility] Medical CenterComment on above:Performed By: #### CBC, LACTIC #### [address] [address] Securities Adviser: Dioni Merlos MDHematocrit (Bld) [Volume fraction]38.2 %Normal 36.3-47.1MKaiser Permanente San Francisco Medical CenterComment on above:Performed By: #### CBC, LACTIC #### [address] [address] Securities Adviser: Dioni Merlos MDHemoglobin (Bld) [Mass/Vol]12.0 g/dLNormal 11.9-15.1MKaiser Permanente San Francisco Medical CenterComment on above:Performed By: #### CBC, LACTIC #### [place] [address] Securities Adviser: JAN GargCH (RBC) [Entitic mass]30.0 xeGeboqg12.2-33.5 [facility] CenterComment on above:Performed By: #### CBC, LACTIC #### [place] [address] Securities Adviser: SHARYN GargC (RBC) [Mass/Vol]31.4 g/jBKvnqcb72.4-34.8 [facility] Medical CenterComment on above:Performed By: #### CBC, LACTIC #### [place] [address] Securities Adviser: JAN GargCV (RBC) [Entitic vol]95.5 zHChyezm91.6-102.9 [facility] Medical CenterComment on above:Performed By: #### CBC, LACTIC #### [place] [address] Securities Adviser: GAYATRI Garg Automated0.0 per 100 WBCNormal0.0[facility]ja Medical CenterComment on above:Performed By: #### CBC, LACTIC #### [place] [address] Securities Adviser: Natalia Garg mean volume (Bld) [Entitic vol]9.2 fL Normal8.1-13.5[facility]ja Medical CenterComment on above:Performed By: #### CBC, LACTIC #### [place] [address] Securities Adviser: RACHID Garglatelets (Bld) [#/Vol]404 10*3/vTIzkeox138-096 [facility] CenterComment on above:Performed By: #### CBC, LACTIC #### [address] [address] Securities Adviser: THEODORE Garg ([facility]) [#/Vol]4.00 10*6/uLNormal3.95-5.11 [facility] CenterComment on above:Performed By: #### CBC, LACTIC #### [address] [address] Securities Adviser: HONG Garg ([facility]) [#/Vol]13.4 10*3/uLHigh3.5-11.3MKaiser Permanente San Francisco Medical CenterComment on above:Performed By: #### CBC, LACTIC #### [address] [address] Securities Adviser: Dioni Merlos MDLipaseon [phone] [Catalytic activity/Vol]21 U/JAdeekm08-17JbkbuUniversity Hospitals Ahuja Medical CenterComment on above: Performed By: #### CBC, LACTIC #### [address] [address] Securities Adviser: Alfredo Garg PCR [place] [id number] Description.FECESSaint Alexius HospitalalUniversity Hospitals Ahuja Medical CenterComment on above: Performed By: #### CRP, HCG, LIP, TROPI, CDP, CP #### [address] [address] Securities Adviser: RACHID Gargerformed By: #### CBC, LACTIC #### [address] [address] Securities Adviser: Dioni Merlos MDC-Reactive Proteinon [id number] [Mass/Vol]8.0 mg/LHigh0.0-5.0[facility] Medical CenterComment on above:Performed By: #### CBC, LACTIC #### [address] [place] [address] Securities Adviser: ANDREW Garg with Diffon [id number]. Basophil0.03 k/uL Normal0.00-0.20[facility] Medical CenterComment on above:Performed By: #### CBC, LACTIC #### [facility] [address] [place] [address] Securities Adviser: Ruba Garg. Eosinophil<0.95Ppmqtu4.00-0.44MerFairchild Medical CenterComment on above:Performed By: #### CBC, LACTIC #### [facility] [address] [place] [address] Securities Adviser: Ruba Garg.Imm.Granulocyte0.06 k/uLNormal0.00-0.30[facility] Medical CenterComment on above:Performed By: #### CBC, LACTIC #### [facility] [address] [place] [address] Securities Adviser: Ruba Garg.Neutrophil (Seg)11.37 k/uLHigh1.50-8.10[facility] Medical CenterComment on above:Performed By: #### CBC, LACTIC #### [facility] [address] [place] [address] Securities Adviser: Dioni Merlos MDBasophils/100 WBC (Bld)0 %Normal0-2MKaiser Permanente San Francisco Medical CenterComment on above:Performed By: #### CBC, LACTIC #### [facility] [address] [place] [address] Securities Adviser: Dioni Merlos MDEosinophils/100 WBC (Bld)0 %Low1-4[facility] Medical CenterComment on above:Performed By: #### CBC, LACTIC #### [facility] [address] [place] [address] Securities Adviser: Dioni Merlos MDErythrocyte distribution width (RBC) [Ratio]13.9 %Xteaps88.8-14.4[facility] Medical CenterComment on above:Performed By: #### CBC, LACTIC #### [address] [address] Securities Adviser: Dioni Merlos MDHematocrit (Bld) [Volume fraction]35.2 %Low 36.3-47.1MKaiser Permanente San Francisco Medical CenterComment on above:Performed By: #### CBC, LACTIC #### [address] [address] Securities Adviser: Dioni Merlos MDHemoglobin (Bld) [Mass/Vol]11.1 g/dLLow11.9-15.1 [facility] CenterComment on above:Performed By: #### CBC, LACTIC #### [address] [address] Securities Adviser: Johanny Gargmature granulocytes/100 WBC (Bld)0 %Normal0 [facility] Medical CenterComment on above:Performed By: #### FOZIA, LACTIC #### [address] [address] Securities Adviser: Dioni Merlos MDLymphocytes (Bld) [#/Vol]2.15 10*3/uLNormal 1.10-3.70[facility] Medical CenterComment on above:Performed By: #### CBC, LACTIC #### [address] [address] Securities Adviser: Dereck Gargmphocytes/100 WBC (Bld)15 %Xrm04-55QtdtfUniversity Hospitals Ahuja Medical CenterComment on above:Performed By: #### CBC, LACTIC #### [address] [address] Securities Adviser: JAN GargCH (RBC) [Entitic mass]29.7 tyEuxrqs70.2-33.5 [facility] CenterComment on above:Performed By: #### CBC, LACTIC #### [address] [address] Securities Adviser: JAN GargCHC (RBC) [Mass/Vol]31.5 g/pBJfrfgt11.4-34.8 [facility] CenterComment on above:Performed By: #### CBC, LACTIC #### [address] [address] Securities Adviser: JAN GargCV (RBC) [Entitic vol]94.1 pTNttcpm35.6-102.9 [facility] CenterComment on above:Performed By: #### CBC, LACTIC #### [place] [address] Securities Adviser: JAN Gargonocytes (Bld) [#/Vol]0.77 10*3/uLNormal 0.10-1.20[facility] Medical CenterComment on above:Performed By: #### CBC, LACTIC #### [address] [address] Securities Adviser: JAN Gargonocytes/100 WBC (Bld)5 %Normal3-12[facility] Medical CenterComment on above:Performed By: #### CBC, LACTIC #### [address] [address] Securities Adviser: Dioni Merlos MDNeutrophil (Seg)80 %Dlrr78-68OssvjUniversity Hospitals Ahuja Medical CenterComment on above:Performed By: #### CBC, LACTIC #### [address] [address] Securities Adviser: Dioni Merlos MDNRBC Automated0.0 per 100 WBCNormal0.0[facility]huja Medical CenterComment on above:Performed By: #### CBC, LACTIC #### [facility] [address] [place] [address] Securities Adviser: Latisha Gagrteankush mean volume (Bld) [Entitic vol]9.1 fL Normal8.1-13.5[facility]als Ahuja Medical CenterComment on above:Performed By: #### CBC, LACTIC #### [facility] [address] [place] [address] Securities Adviser: RACHID Garglatelets (Bld) [#/Vol]378 10*3/jKVwidny001-867 [facility]ja Medical CenterComment on above:Performed By: #### CBC, LACTIC #### [facility] [address] [place] [address] Securities Adviser: Dioni Merlos MDRBC (Bld) [#/Vol]3.74 10*6/uLLow3.95-5.11[facility] Ahuja Medical CenterComment on above:Performed By: #### CBC, LACTIC #### [facility] [address] [place] [address] Securities Adviser: iDoni Merlos MDWBC (Bld) [#/Vol]14.4 10*3/uLHigh3.5-11.3MKaiser Permanente San Francisco Medical CenterComment on above:Performed By: #### CBC, LACTIC #### [facility] [address] [place] [address] Securities Adviser: Dioni Merlos MDCT ABDOMEN PELVIS W IV CONTRASTon 09-11-5514YW ABDOMEN PELVIS W IV CONTRASTEXAMINATION: CT OF [...] by: Bishnu Cardoso MD 01/25/24 Final resultNormalMercy Kindred HospitalComp Metabolic Profon 17-43-0953Rshwriy [Mass/Vol]3.3 g/dLLow3.5-5.2[facility] Comment on above:Performed By: #### CBC, LACTIC #### [facility] [place] [address] Securities Adviser: Dioni Merlos MDAlbumin/Glob Ratio1.1Stwier5.0-2.5[facility] Ahuja Medical CenterComment on above:Performed By: #### CBC, LACTIC #### [facility] [address] [place] [address] Securities Adviser: Dioni Merlos MDAlkaline Phos67 U/ZKcvrlz09-109LceqbUniversity Hospitals Ahuja Medical CenterComment on above:Performed By: #### CBC, LACTIC #### [address] [address] Securities Adviser: Dioni Merlos MDALT [Catalytic activity/Vol]8 U/BKjv02-07FeglsUniversity Hospitals Ahuja Medical CenterComment on above:Performed By: #### CBC, LACTIC #### [address] [address] Securities Adviser: Dioni Merlos MDAnion gap [Moles/Vol]11 mmol/LNormal9-16[facility] Ahuja Medical CenterComment on above:Performed By: #### CBC, LACTIC #### [address] [address] Securities Adviser: Dioni Merlos MDAST [Catalytic activity/Vol]15 U/AByryyv67-04 [facility]huja Medical CenterComment on above:Performed By: #### CBC, LACTIC #### [address] [address] Securities Adviser: Dioni Merlos MDBilirubin [Mass/Vol]mg/dLNormal0.00-1.20[facility] Ahuja Medical CenterComment on above:Performed By: #### CBC, LACTIC #### [address] [address] Securities Adviser: Dioni Merlos MDCalcium [Mass/Vol]8.8 mg/dLNormal8.6-10.4[facility] Ahuja Medical CenterComment on above:Performed By: #### CBC, LACTIC #### [facility] [address] [place] [address] Securities Adviser: ANGIE Garghloride [Moles/Vol]102 mmol/QPmfwwv95-659NesbtUniversity Hospitals Ahuja Medical CenterComment on above:Performed By: #### CBC, LACTIC #### [facility] [address] [place] [address] Securities Adviser: Dioni Merlos MDCO2 [Moles/Vol]30 mmol/UXyuolz60-18HwxwdUniversity Hospitals Ahuja Medical CenterComment on above:Performed By: #### CBC, LACTIC #### [facility] [address] [place] [address] Securities Adviser: ANGIE Gargreatinine [Mass/Vol]0.7 mg/dLNormal0.50-0.90 [facility]huja Medical CenterComment on above:Performed By: #### CBC, LACTIC #### [facility] [address] [place] [address] Securities Adviser: Dioni Merlos MDGFR/1.73 sq M.predicted among non-blacks [...] By: #### CBC, LACTIC #### [facility] [address] [place] [address] Securities Adviser: Dioni Merlos MDGlucose [Mass/Vol]98 mg/vADyoexd13-32WbasjKaiser Permanente San Francisco Medical CenterComment on above:Performed By: #### CBC, LACTIC #### [facility] [address] [place] [address] Securities Adviser: Dioni Merlos MDPotassium [Moles/Vol]3.2 mmol/LLow3.7-5.3Mercy Kindred HospitalComment on above:Performed By: #### CBC, LACTIC #### [facility] [address] [place] [address] Securities Adviser: Dioni Merlos MDProtein [Mass/Vol]5.9 g/dLLow6.6-8.7[facility] Ahuja Medical CenterComment on above:Performed By: #### CBC, LACTIC #### [facility] [address] [place] [address] Securities Adviser: Dioni Merlos MDSodium [Moles/Vol]143 mmol/PVryotf464-598XgwfdUniversity Hospitals Ahuja Medical CenterComment on above:Performed By: #### CBC, LACTIC #### [facility] [address] [place] [address] Securities Adviser: Dioni Merlos MDUrea nitrogen [Mass/Vol]8 mg/dLNormal6-20[facility]huja Medical CenterComment on above:Performed By: #### CBC, LACTIC #### [facility] [address] [place] [address] Securities Adviser: Dioni Merlos MDHCG Screen, Bloodon 38-27-9910EBC Screen, Blood NegativeNormalNEGUniversity Hospitals Ahuja Medical CenterComment on above:Result Comment: Specimens with hCG levels near the threshold of the test (25 mIU/mL) may give a negative or indeterminate result. In such cases, another test should be performed with a new specimen in 48-72 hours. If early is suspected clinically in this setting, correlation with quantitative serum b-hCG level is suggested. [facility] has confirmed the use of plasma for this test. This has not been cleared or approved by the U.S. Food and Drug Administration. The FDA has determined that such clearance is not necessary.Performed By: #### CBC, LACTIC #### [facility] [place] [address] Securities Adviser: Dioni Merlos MDLactic Acidon 03-82-4363Hlrzlj Acid,Whole Bl1.5 mmol/LNormal0.7-2.1MKaiser Permanente San Francisco Medical CenterComment on above:Performed By: #### CBC, LACTIC #### [facility] [address] [place] [address] Securities Adviser: Dioni Merlos MDLipaseon 50-20-3490Zaeqrn [Catalytic activity/Vol]32 U/GVkhczj22-12LyyhaUniversity Hospitals Ahuja Medical CenterComment on above: Performed By: #### FOZIA, LACTIC #### [facility] [address] [place] [address]73 Securities Adviser: CASS Gargedimentation Rateon 61-45-3941Hxvxsisgomkul Rate10 mm/HrNormal0-20[facility]huja Medical CenterComment on above:Performed By: #### FOZIA, LACTIC #### [address] [address] Securities Adviser: SIERRA Garg ACUTE ABD SERIES CHEST 1 VWon 04-07-0744KR ACUTE ABD SERIES CHEST 1 VWEXAMINATION: TWO [...] by: Andrew Toure MD 01/25/24 Final resultNormalMercy Kindred HospitalAutomated basophil %Ordered By: Imad Asaad on 22-51-2568Tftkaofox/100 WBC (Bld)0.3 %Normal.[facility] - WestComment on above:Performed By: #### CBC #### [place] [address] USAAutomated basophil countOrdered By: Imad Asaad on 55-56-2766Epazjwzzm (Bld) [#/Vol]0.0 10*3/uLNormal0.0-0.2FWyandot Memorial HospitalComment on above:Result Comment: PERFORMED BY: [place] [address] PATHOLOGIST CERTIFIED ADAPTIVE PHYSICAL EDUCATOR RAGHU NAJERA M.D.Performed By: #### CBC #### [place] [address] USAAutomated blood monocyte countOrdered By: Imad Asaad on 93-34-7438Sbjpmshcj (Bld) [#/Vol]0.7 10*3/uLNormal0.0-0.8[facility] Hospital - WestComment on above:Performed By: #### CBC #### [facility] [address] [place] [address] USAAutomated eosinophil %Ordered By: Imad Asaad on 01-19-2024 Eosinophils/100 WBC (Bld)0.8 %Normal.[facility] - WestComment on above:Performed By: #### CBC #### [place] [address] USAAutomated eosinophil countOrdered By: Imad Asaad on 08-27-4181Fsbuneavvsn (Bld) [#/Vol]0.1 10*3/uLNormal0.0-0.45[facility] - WestComment on above:Performed By: #### CBC #### [place] [address] USAAutomated monocyte %Ordered By: Imad Asaad on 01-19-2024 Monocytes/100 WBC (Bld)8.1 %Normal.[facility] Hospital - WestComment on above:Performed By: #### CBC #### [facility] [address] [place] [address] USAAutomated neutrophil %Ordered By: Jennifer Brody on 01-19-2024 Neutrophils/100 WBC (Bld)82.7 %Normal.[facility] Hospital - WestComment on above:Performed By: #### CBC #### [facility] [address] [place] [address] USACalprotectin, Fecalon 14-35-4378Lpiynmdnvfbk, Wppqy4812 High0-120The [facility] Physician GroupComment on above:Result Comment: Results verified by repeat testing Concentration Interpretation Follow-Up < 5 - 50 ug/g Normal None >50 -120 ug/g Borderline Re-evaluate in 4-6 weeks >120 ug/g Abnormal Repeat as clinically indicated Performed at: - [facility] [id number] Securities Adviser: Danielle Olson MD, Phone: [phone] PERFORMED BY: [place] [address] PATHOLOGIST CERTIFIED ADAPTIVE PHYSICAL EDUCATOR RAGHU NAJERA M.D.Performed By: #### CALPROTECT #### [facility] ,Complete Blood Count Auto Diffon 85-26-1290Egys Corpuscular HGB Conc33.2 g/dL Gwyztv67.0-35.0[facility] Physician [facility] HospitalComment on above:Performed By: #### CBC #### [place] [address] USANRBC%0.1 /100{WBC}Normal0-0.5[facility] Comment on above:Performed By: #### CBC #### [place] [address] USAErythrocyte distribution width [Ratio] by Automated count Ordered By: Jennifer Brody on 75-29-4842Xtwlbrxrbct distribution width (RBC) [Ratio] 14.5 %Rglixq66.9-15.3FWyandot Memorial HospitalComment on above:Performed By: #### CBC #### [facility] [address] [place] [address] USAErythrocytes [#/volume] in Blood by Automated countOrdered By: Imad Asaad on 33-25-1920JSQ (Bld) [#/Vol]3.84 10*6/uLNormal3.60-5.00 [facility] - WestComment on above:Performed By: #### CBC #### [place] [address] USAHematocrit [Volume Fraction] of Blood by Automated count Ordered By: Imad Asaad on 26-43-9221Iisfiyvagb (Bld) [Volume fraction]35.0 % Pqvfhn07.0-46.4FWyandot Memorial HospitalComment on above:Performed By: #### CBC #### [place] [address] USAHemoglobin [Mass/volume] in BloodOrdered By: Imad Asaad on 11-80-8287Tfegipycgn (Bld) [Mass/Vol]11.6 g/dLLow11.8-15.4FWyandot Memorial HospitalComment on above:Performed By: #### CBC #### [place] [address] USALeukocytes [#/volume] corrected for nucleated erythrocytes in Blood by Automated counOrdered By: Imad Asaad on 31-49-1519SPI corrected for nucl RBC Auto (Bld) [#/Vol]8.9 10*3/uL3.8-11.6FWyandot Memorial Hospital Leukocytes [#/volume] in Blood by Automated countOrdered By: Imad Asaad on 33-31-2531RRN (Bld) [#/Vol]8.9 10*3/uLNormal3.8-11.6FWyandot Memorial HospitalComment on above:Performed By: #### CBC #### [place] [address] USALymphocytes [#/volume] in Blood by Automated countOrdered By: Imad Asaad on 84-52-7033Odhkakprvxt (Bld) [#/Vol]0.7 10*3/uLLow1.00-4.8 [facility] - WestComment on above:Performed By: #### CBC #### [facility] [address] [place] [address] USALymphocytes/100 leukocytes in Blood by Automated count Ordered By: Imad Asaad on 08-70-7396Ckjisezipkf/100 WBC (Bld)8.1 %Normal. [facility] Hospital - WestComment on above:Performed By: #### CBC #### [place] [address] USAMCH [Entitic mass] by Automated countOrdered By: Imad Asaad on 19-84-5871UTU (RBC) [Entitic mass]30.1 udMscnkt50.7-34.3FWyandot Memorial HospitalComment on above:Performed By: #### CBC #### [place] [address] USAMCHC Auto (RBC) [Mass/Vol]Ordered By: Imad Asaad on 68-97-8262DUOT (RBC) [Mass/Vol]33.2 g/dL32.0-35.0[facility] Hospital - WestMCV [Entitic volume] by Automated countOrdered By: Imad Asaad on 51-68-2990AJE (RBC) [Entitic vol]90.9 qLUguqnt31-625QdnyozatgLake County Memorial Hospital - WestComment on above:Performed By: #### CBC #### [facility] [address] [place] [address] USANeutrophils [#/volume] in Blood by Automated countOrdered By: Imad Asaad on 85-23-3169Gmrtxetfexz (Bld) [#/Vol]7.4 10*3/uLNormal1.8-7.7 [facility] - WestComment on above:Performed By: #### CBC #### [place] [address] USANucleated erythrocytes [Presence] in Blood by Automated countOrdered By: Imad Asaad on 57-14-8370Vyhcopahj RBC Auto Ql (Bld)0.1 /100{WBC}0-0.5FWyandot Memorial HospitalPlatelet mean volume [Entitic volume] in Blood by Automated countOrdered By: Imad Asaad on 58-68-1296Cvvfxglc mean volume (Bld) [Entitic vol]7.7 fLNormal6.3-10.7FWyandot Memorial HospitalComment on above:Performed By: #### CBC #### [facility] [address] [place] [address] USAPlatelets [#/volume] in Blood by Automated countOrdered By: Imad Asaad on 63-33-3500Kawdswtlh (Bld) [#/Vol]351 10*3/oNOfvcsy021-686 [facility] - WestComment on above:Performed By: #### CBC #### [facility] [address] [place] [id number] USACT ABDOMEN PELVIS W IV CONTRASTon 54-09-4348GR ABDOMEN PELVIS W IV CONTRASTEXAMINATION: CT OF [...] by: Juan José Mena MD 11/23/23 Final resultNormalMerFairchild Medical CenterC-Reactive Proteinon 94-64-4640NMP [Mass/Vol]mg/LNormal0.0-5.0[facility]huja Medical CenterComment on above:Performed By: #### CRP, HCG, LIP, TROPI, CDP, CP #### [facility] [address] [place] [address] Securities Adviser: Dioni Merlos [facility] with Auto Differentialon 81-97-7586Cilpniaqi (Bld) [#/Vol]0.06 10*3/uLBON SEC[facility] HEALTHBasophils/100 WBC (Bld)0 %0 - 2 %[facility]ITALEosinophils (Bld) [#/Vol][facility] Eosinophils/100 WBC (Bld)0 %Low1 - 4 %[facility] EffdonErythrocyte distribution width (RBC) [Ratio]14.4 %11.8 - 14.4 %[facility] Hematocrit (Bld) [Volume fraction]41.0 %36.3 - 47.1 %[facility] Hemoglobin (Bld) [Mass/Vol]13.7 g/dL11.9 - 15.1 g/dLBON [facility] Immature granulocytes (Bld) [#/Vol]0.08 10*3/uLBON SECTRINITY HEALTH SYSTEMImmature granulocytes/100 WBC (Bld)0 %0B[facility] CLINICInterpretation and review of laboratory resultsAbnormalBON MARIETTA OSTEOPATHIC CLINICLymphocytes/100 WBC (Bld)8 %Low24 - 43 %[facility] SYSTEMLymphocytes/100 WBC (Bld)1.69 %[facility] SYSTEMH (RBC) [Entitic mass]30.7 pg25.2 - 33.5 pgBON ACMC HEALTHCARE SYSTEMHC (RBC) [Mass/Vol]33.4 g/dL28.4 - 34.8 g/dLBON MARIETTA OSTEOPATHIC CLINICMCV (RBC) [Entitic vol]91.9 fL82.6 - 102.9 fLBON MARIETTA OSTEOPATHIC CLINICMonocytes/100 WBC (Bld)5 %3 - 12 %[facility] HOSPITALMonocytes/100 WBC (Bld)1.02 %[facility] HOSPITALNeutrophils/100 WBC (Bld)87 %High36 - 65 %[facility] HOSPITALNucleated RBC/100 WBC (Bld) [Ratio]0.0 %0.0 per 100 WBCBON MARIETTA OSTEOPATHIC CLINICPlatelet mean volume (Bld) [Entitic vol]9.9 fL8.1 - 13.5 fLBON MARIETTA OSTEOPATHIC CLINICPlatelets (Bld) [#/Vol]408 10*3/uLBON SECTRINITY HEALTH SYSTEMRBC (Bld) [#/Vol]4.46 10*6/uL3.95 - 5.11 m/uLBON MARIETTA OSTEOPATHIC CLINICSegmented neutrophils/100 WBC (Bld)17.65 %HighCARILION ROANOKE MEMORIAL HOSPITALWBC other (Bld) [#/Vol]20.5HighBON SANFORD VERMILLION MEDICAL CENTERCBC with Diffon 66-55-0047Bxi. Basophil0.06 k/uLNormal0.00-0.20[facility] Comment on above:Performed By: #### CRP, HCG, LIP, TROPI, CDP, CP #### [facility] [address] [place] [address] Securities Adviser: Ruba Garg. Eosinophil<0.37Kxpjes8.00-0.44[facility]ja Medical CenterComment on above:Performed By: #### CRP, HCG, LIP, TROPI, CDP, CP #### [facility] [address] [place] [address] Securities Adviser: MDAbs. BritanyImm.Granulocyte0.08 k/uLNormal0.00-0.30[facility]ja Medical CenterComment on above:Performed By: #### CRP, HCG, LIP, TROPI, CDP, CP #### [facility] [address] [place] [address] Securities Adviser: Ruba Garg.Neutrophil (Seg)17.65 k/uLHigh1.50-8.10[facility]ja Medical CenterComment on above:Performed By: #### CRP, HCG, LIP, TROPI, CDP, CP #### [facility] [address] [place] [address] Securities Adviser: Dioni Merlos MDBasophils/100 WBC (Bld)0 %Normal0-2MercJerold Phelps Community HospitalComment on above:Performed By: #### CRP, HCG, LIP, TROPI, CDP, CP #### [facility] [address] [place] [address] Securities Adviser: Dioni Merlos MDEosinophils/100 WBC (Bld)0 %Low1-4[facility] Medical CenterComment on above:Performed By: #### CRP, HCG, LIP, TROPI, CDP, CP #### [facility] [address] [place] [address] Securities Adviser: Dioni Merlos MDErythrocyte distribution width (RBC) [Ratio]14.4 %Ejkpnj67.8-14.4[facility] Medical CenterComment on above:Performed By: #### CRP, HCG, LIP, TROPI, CDP, CP #### [address] [address] Securities Adviser: Dioni Merlos MDHematocrit (Bld) [Volume fraction]41.0 %Normal 36.3-47.1MKaiser Permanente San Francisco Medical CenterComment on above:Performed By: #### CRP, HCG, LIP, TROPI, CDP, CP #### [place] [address] Securities Adviser: Dioni Merlos MDHemoglobin (Bld) [Mass/Vol]13.7 g/dLNormal 11.9-15.1MKaiser Permanente San Francisco Medical CenterComment on above:Performed By: #### CRP, HCG, LIP, TROPI, CDP, CP #### [place] [address] Securities Adviser: Johanny Gargmature granulocytes/100 WBC (Bld)0 %Normal0 [facility]ja Medical CenterComment on above:Performed By: #### CRP, HCG, LIP, TROPI, CDP, CP #### [place] [address] Securities Adviser: Dioni Merlos MDLymphocytes (Bld) [#/Vol]1.69 10*3/uLNormal 1.10-3.70[facility] Medical CenterComment on above:Performed By: #### CRP, HCG, LIP, TROPI, CDP, CP #### [address] [address] Securities Adviser: Dereck Gargmphocytes/100 WBC (Bld)8 %Zsw87-81Jcdyr [facility] Medical CenterComment on above:Performed By: #### CRP, HCG, LIP, TROPI, CDP, CP #### [address] [address] Securities Adviser: JAN GargCH (RBC) [Entitic mass]30.7 faDfxzcy19.2-33.5 [facility] Medical CenterComment on above:Performed By: #### CRP, HCG, LIP, TROPI, CDP, CP #### [address] [address] Securities Adviser: SHARYN GargC (RBC) [Mass/Vol]33.4 g/uWIgncdm72.4-34.8 [facility] Medical CenterComment on above:Performed By: #### CRP, HCG, LIP, TROPI, CDP, CP #### [place] [address] Securities Adviser: XOCHITL Garg (RBC) [Entitic vol]91.9 aTMxdfom76.6-102.9 [facility] Medical CenterComment on above:Performed By: #### CRP, HCG, LIP, TROPI, CDP, CP #### [place] [address] Securities Adviser: JAN Gargonocytes (Bld) [#/Vol]1.02 10*3/uLNormal 0.10-1.20[facility] Medical CenterComment on above:Performed By: #### CRP, HCG, LIP, TROPI, CDP, CP #### [address] [address] Securities Adviser: JAN Gargonocytes/100 WBC (Bld)5 %Normal3-12[facility] Medical CenterComment on above:Performed By: #### CRP, HCG, LIP, TROPI, CDP, CP #### [facility] [address] [place] [address] Securities Adviser: Laly Garg (Seg)87 %Qhms31-11EjlksUniversity Hospitals Ahuja Medical CenterComment on above:Performed By: #### CRP, HCG, LIP, TROPI, CDP, CP #### [facility] [address] [place] [address] Securities Adviser: GAYATRI Garg Automated0.0 per 100 WBCNormal0.0[facility] Medical CenterComment on above:Performed By: #### CRP, HCG, LIP, TROPI, CDP, CP #### [address] [address] Securities Adviser: Natalia Garg mean volume (Bld) [Entitic vol]9.9 fL Normal8.1-13.5[facility] Medical CenterComment on above:Performed By: #### CRP, HCG, LIP, TROPI, CDP, CP #### [facility] [address] [place] [address] Securities Adviser: Lionel Garg (Bld) [#/Vol]408 10*3/mOLydyrx045-295 [facility] Medical CenterComment on above:Performed By: #### CRP, HCG, LIP, TROPI, CDP, CP #### [address] [address] Securities Adviser: FADY Garg (Bld) [#/Vol]4.46 10*6/uLNormal3.95-5.11 [facility] CenterComment on above:Performed By: #### CRP, HCG, LIP, TROPI, CDP, CP #### [address] [address] Securities Adviser: GIANNA Garg (Bld) [#/Vol]20.5 10*3/uLHigh3.5-11.3MKaiser Permanente San Francisco Medical CenterComment on above:Performed By: #### CRP, HCG, LIP, TROPI, CDP, CP #### [facility] [address] [place] [address] Securities Adviser: ANGIE Gargomp Metabolic Profon 24-90-2942Avdlgfi [Mass/Vol]4.1 g/dLNormal3.5-5.2[facility]y Kindred HospitalComment on above: Performed By: #### CRP, HCG, LIP, TROPI, CDP, CP #### [address] [address] Securities Adviser: Dioni Merlos MDAlbumin/Glob Ratio1.5Llyskd3.0-2.5[facility] Medical CenterComment on above:Performed By: #### CRP, HCG, LIP, TROPI, CDP, CP #### [address] [address] Securities Adviser: Wesley Gargline Phos59 U/SLevzfy18-545GnxkkUniversity Hospitals Ahuja Medical CenterComment on above:Performed By: #### CRP, HCG, LIP, TROPI, CDP, CP #### [facility] [address] [place] [address] Securities Adviser: Dioni Merlos MDALT [Catalytic activity/Vol]13 U/VUmpkwn02-52 [facility] CenterComment on above:Performed By: #### CRP, HCG, LIP, TROPI, CDP, CP #### [facility] [address] [place] [address] Securities Adviser: Dioni Merlos MDAnion gap [Moles/Vol]14 mmol/LNormal9-16[facility] Medical CenterComment on above:Performed By: #### CRP, HCG, LIP, TROPI, CDP, CP #### [facility] [address] [place] [address] Securities Adviser: Dioni Merlos MDAST [Catalytic activity/Vol]26 U/PKofedf42-06 [facility] Medical CenterComment on above:Performed By: #### CRP, HCG, LIP, TROPI, CDP, CP #### [address] [address] Securities Adviser: Dioni Merlos MDBilirubin [Mass/Vol]0.2 mg/dLNormal0.00-1.20 [facility] CenterComment on above:Performed By: #### CRP, HCG, LIP, TROPI, CDP, CP #### [address] [address] Securities Adviser: Dioni Merlos MDCalcium [Mass/Vol]9.3 mg/dLNormal8.6-10.4[facility] Medical CenterComment on above:Performed By: #### CRP, HCG, LIP, TROPI, CDP, CP #### [address] [address] Securities Adviser: ANGIE Garghloride [Moles/Vol]102 mmol/XEhlnqd03-553EzqdwUniversity Hospitals Ahuja Medical CenterComment on above:Performed By: #### CRP, HCG, LIP, TROPI, CDP, CP #### [address] [address] Securities Adviser: Dioni Merlos MDCO2 [Moles/Vol]23 mmol/PZmzbgm43-51KarxnUniversity Hospitals Ahuja Medical CenterComment on above:Performed By: #### CRP, HCG, LIP, TROPI, CDP, CP #### [address] [address] Securities Adviser: Dioni Merlos MDCreatinine [Mass/Vol]0.6 mg/dLNormal0.50-0.90 [facility] Medical CenterComment on above:Performed By: #### CRP, HCG, LIP, TROPI, CDP, CP #### [address] [address] Securities Adviser: Dioni Merlos MDGFR/1.73 sq M.predicted among non-blacks [...] CRP, HCG, LIP, TROPI, CDP, CP #### [facility] [address] [place] [address] Securities Adviser: Dioni Merlos MDGlucose [Mass/Vol]195 mg/aLKxtu16-28VtvrzKaiser Permanente San Francisco Medical CenterComment on above:Performed By: #### CRP, HCG, LIP, TROPI, CDP, CP #### [facility] [address] [place] [address] Securities Adviser: Dioni Merlos MDPotassium [Moles/Vol]3.8 mmol/LNormal3.7-5.3 [facility] CenterComment on above:Performed By: #### CRP, HCG, LIP, TROPI, CDP, CP #### [facility] [address] [place] [address] Securities Adviser: Dioni Merlos MDProtein [Mass/Vol]7.0 g/dLNormal6.6-8.7[facility] Medical CenterComment on above:Performed By: #### CRP, HCG, LIP, TROPI, CDP, CP #### [facility] [address] [place] [id number] Securities Adviser: Dioni Merlos MDSodium [Moles/Vol]139 mmol/OHpcswr290-032OcvbrUniversity Hospitals Ahuja Medical CenterComment on above:Performed By: #### CRP, HCG, LIP, TROPI, CDP, CP #### [facility] [address] [place], [place] [id number] Securities Adviser: Dioni Merlos MDUrea nitrogen [Mass/Vol]9 mg/dLNormal-20University Hospitals Ahuja Medical CenterComment on above:Performed By: #### CRP, HCG, LIP, TROPI, CDP, CP #### [facility] [address] [place], [place] [id number] Securities Adviser: Dioni Merlos [facility] CITYompcleveland clinic children's hospital for rehabilitationensive Metabolic Panelon 11-22-2023 Albumin [Mass/Vol]4.1 g/dL3.5 - 5.2 g/dLBON SECOURS MERCY HEALTHAlbumin/Globulin [Mass ratio]1.0 {ratio}1.0 - 2.5B[facility]RS ClusterFlunkY HEALTHALP [Catalytic activity/Vol]59 U/L35 - 104 U/LBON [...] MERCY HEALTHEst, Glom Filt Rate- PINFBON SECOURS MARI[facility] MEMORIAL HOSPITALY HEALTHComment on above: These results are [...] that affects renal tubular secretion. Glucose [Mass/Vol]195 mg/vMYfwc42 - 99 mg/dLBON [facility] Interpretation and review of laboratory resultsAbnormalBON [facility] Potassium [Moles/Vol]3.8 mmol/L3.7 - 5.3 mmol/LBON [facility]STEOPATHIC CLINICProtein [Mass/Vol]7.0 g/dL6.6 - 8.7 g/dLBON MARIETTA OSTEOPATHIC CLINICSodium [Moles/Vol]139 mmol/L136 - 145 mmol/LBON [facility]TA [facility]STEOPATHIC CLINICUrea nitrogen [Mass/Vol]9 mg/dL6 - 20 mg/dLBON MARIETTA OSTEOPATHIC CLINICHCG Qualitative, Serumon 22-94-1395KRA ( test) QlNegativeNEGATIVEBON MARIETTA OSTEOPATHIC CLINICComment on above: Specimens with hCG levels near the threshold of the test (25 mIU/mL) may give a negative or indeterminate result. In such cases, another test should be performed with a new specimen in 48-72 hours. If early is suspected clinically in this setting, correlation with quantitative serum b-hCG level is suggested. [facility] has confirmed the use of plasma for this test. This has not been cleared or approved by the U.S. Food and Drug Administration. The FDA has determined that such clearance is not necessary. [facility] CLINICHCG Screen, Bloodon 14-06-5215WUU Screen, BloodNegative NormalNEGMercy Kindred HospitalComment on above:Result Comment: Specimens with hCG levels near the threshold of the test (25 mIU/mL) may give a negative or indeterminate result. In such cases, another test should be performed with a new specimen in 48-72 hours. If early is suspected clinically in this setting, correlation with quantitative serum b-hCG level is suggested. [facility] has confirmed the use of plasma for this test. This has not been cleared or approved by the U.S. Food and Drug Administration. The FDA has determined that such clearance is not necessary.Performed By: #### CRP, HCG, LIP, TROPI, CDP, CP #### [facility] [address] [place], [place] [id number] Securities Adviser: Dioni Merlos MDLipaseon 08-01-2399Rodttg [Catalytic activity/Vol]37 U/L13 - 60 U/LBON [facility] HEALTHLipase [Catalytic activity/Vol]37 U/PXcvejk90-34LytthUniversity Hospitals Ahuja Medical CenterComment on above: Performed By: #### CRP, HCG, LIP, TROPI, CDP, CP #### [facility] [address] [place] [address] Securities Adviser: Dioni Merlos MDNo Panel Informationon 49-46-5326ILC [facility]OPATH[facility] CLINICPortable XR Chest AP single viewon 37-05-3344Kr acute process. [facility] CONSOLIDATEDEXAMINATION: ONE XRAY VIEW OF THE CHEST 11/22/2023 5:11 am COMPARISON: None. HISTORY: ORDERING SYSTEM PROVIDED HISTORY: vomit TECHNOLOGIST PROVIDED HISTORY: vomit Reason for Exam: upr,cp,emesis FINDINGS: The lungs are without acute focal process. There is no effusion or pneumothorax. The cardiomediastinal silhouette is without acute process. The osseous structures are without acute process. [facility] Juan José Burch MD - [...] without acute process. IMPRESSION: No acute process. [facility] HEALTHCARERadiology Study observation (narrative)[facility] HOSPITALTroponinon 18-42-2772Vsxwwmji I.cardiac High sensitivity method [Mass/Vol]ng/L0 - 14 ng/LBON [facility]STEOPATHIC CLINICComment on above:High Sensitivity Troponin values cannot be compared with other Troponin methodologies.Troponin, High Sens<3Eiyazy9-91QgpaiUniversity Hospitals Ahuja Medical Center Comment on above:Result Comment: High Sensitivity Troponin values cannot be compared with other Troponin methodologies.Performed By: #### CRP, HCG, LIP, TROPI, CDP, CP #### [facility] [address] [place] [address] Securities Adviser: SIERRA Garg CHEST PORTABLEon 51-73-0468WM CHEST PORTABLE EXAMINATION: ONE XRAY VIEW OF [...] by: Juan José Mena MD 11/22/23 Final resultNormalUniversity Hospitals Ahuja Medical CenterUrinalysis - AUTOMATEDon 55-91-3499Eiteksivvb (U)clearTen Mile VetDC Other Bilirubin Ql (U)[facility] Other Color (U)yellowTen Mile VetDC Other Glucose Ql (U)[facility] Other Hemoglobin Ql (U)largeTen Mile VetDC Other Ketones Ql (U)[facility] Other Leukocyte esterase Test strip Ql (U)moderateTen Mile VetDC Other Nitrite Ql (U)[facility] Other pH (U)7.0 [pH][facility] [employer] Other Protein Ql (U)[facility] Other Specific gravity (U) [Rel density]1.010[employer] Other Urobilinogen (U) [Mass/Vol]0.2 mg/dLC[facility] [employer] [facility] Other Urinalysis - AUTOMATEDC[employer] Other Urine culture routineOrdered By: Dalia Apple on 18-40-1256Wgxusnts identified Cx Nom (U)Escherichia coliLake County Memorial Hospital - WestQuick Strepon 02-23-2023S. pyogenes Org specific cx Ql (Throat) NegativeCogniK Other Quick StrepCogniK Other amphetamine Screen Ql (U)Ordered By: Kevin Gunn on 52-67-5723Ubczmwbrqbom Ql (U)NegativeNegUniversity Hospitals Lake West Medical Center Barbiturates [Presence] in Urine by Screen methodOrdered By: Kevin Gunn on 06-18-5672Mvmdohxhgtjz Screen Ql (U)NegativeNegUniversity Hospitals Lake West Medical CenterBenzodiazepines Screen Ql (U)Ordered By: Kevin Gunn on 02-16-2023 Benzodiazepines Ql (U)NegativeNegUniversity Hospitals Lake West Medical Center Benzoylecgonine [Presence] in Urine by Screen methodOrdered By: Kevin Gunn on 25-39-7475Zrqfpqbxilzgvis Screen Ql (U)NegativeNegUniversity Hospitals Lake West Medical CenterCannabinoids [Presence] in Urine by Screen methodOrdered By: Kevin Gunn on 48-13-5406Vasagkcznbht Screen Ql (U)PositiveNegativeLake County Memorial Hospital - WestComment on above:These are unconfirmed results and should not be used for legal purposes. Drug Cut-Off Concentration: AMPH 1000 ng/mL BEN 200 ng/mL WILLEM 200 ng/mL COCM 300 ng/mL OP 300 ng/mL PCP 25 ng/mL THC 20 ng/mLHCG ( test) IA.rapid Ql (U)Ordered By: Kevin Gunn on 64-18-9534VKE ( test) Ql (U)NegativeLake County Memorial Hospital - WestOpiates [Presence] in Urine by Screen methodOrdered By: Kevin Gunn on 42-97-1931Ubfgjot Screen Ql (U)NegativeNegativeLake County Memorial Hospital - WestPhencyclidine Screen Ql (U)Ordered By: Kevin Gunn on 67-55-4894Xqvspxelltvgv Ql (U)Negative NegativeLake County Memorial Hospital - WestAmphetamine Screen Ql (U)Ordered By: Imoctavio Asaoctavio on 14-08-4606Fulpizpxfahh Ql (U)NegativeNegUniversity Hospitals Lake West Medical CenterBarbiturates [Presence] in Urine by Screen methodOrdered By: Imad Asaad on 59-82-0965Lvswzbymjirg Screen Ql (U)NegativeNegativeLake County Memorial Hospital - WestBenzodiazepines Screen Ql (U)Ordered By: Imad Asaad on 12-31-2022 Benzodiazepines Ql (U)NegativeNegUniversity Hospitals Lake West Medical Center Benzoylecgonine [Presence] in Urine by Screen methodOrdered By: Imad Asaad on 10-90-1082Ygpfrhozywvbbvw Screen Ql (U)NegativeNegUniversity Hospitals Lake West Medical CenterCannabinoids [Presence] in Urine by Screen methodOrdered By: Imad Asaad on 27-26-1766Ryrlwajrbsgz Screen Ql (U)PositiveNegUniversity Hospitals Lake West Medical CenterComment on above:These are unconfirmed results and should not be used for legal purposes. Drug Cut-Off Concentration: AMPH 1000 ng/mL BEN 200 ng/mL WILLEM 200 ng/mL COCM 300 ng/mL OP 300 ng/mL PCP 25 ng/mL THC 20 ng/mLHCG ( test) IA.rapid Ql (U)Ordered By: Imad Asaad on 02-30-6916EQA ( test) Ql (U)NegativeLake County Memorial Hospital - WestOpiates [Presence] in Urine by Screen methodOrdered By: Imad Asaad on 21-90-8733Bhaerld Screen Ql (U)NegativeNegUniversity Hospitals Lake West Medical CenterPhencyclidine Screen Ql (U)Ordered By: Imad Asaad on 60-98-2445Ugqdtefnwaucz Ql (U)Negative [facility] Iront[facility] CampusAlanine aminotransferase [Enzymatic activity/volume] in Serum or PlasmaOrdered By: Imad Asaad on 11-52-0721ZEA [Catalytic activity/Vol]16 U/L7-52Fire[facility] Medical CenterAlbumin [Mass/volume] in Serum or Plasma by Bromocresol green (BCG) dye binding metho Ordered By: Imad Asaad on 49-57-4038Dcwaqbt BCG dye [Mass/Vol]3.9 g/dL3.5-5.7 [facility] - WestAlkaline phosphatase [Enzymatic activity/volume] in Serum or PlasmaOrdered By: Imad Asaad on 54-47-6618CIL [Catalytic activity/Vol]44 U/Y99-977GnmgqkzckLake County Memorial Hospital - WestAspartate aminotransferase [Enzymatic activity/volume] in Serum or PlasmaOrdered By: Imad Asaad on 51-89-6253GQK [Catalytic activity/Vol]13 U/I02-75HobzcjwrsLake County Memorial Hospital - WestBasophils Auto (Bld) [#/Vol]Ordered By: Imad Asaad on 12-30-2022 Basophils (Bld) [#/Vol]0.1 10*3/uL0.0-0.2FWyandot Memorial Hospital Basophils/100 WBC Auto (Bld)Ordered By: Imad Asaad on 30-67-1053Uftcejlcs/100 WBC (Bld)1.1 %.[facility] - WestBilirubin.direct [Mass/volume] in Serum or PlasmaOrdered By: Imad Asaad on 76-46-4308Fmxrrmigd.direct [Mass/Vol]0.10 mg/dL0.03-0.18FWyandot Memorial HospitalBilirubin.total [Mass/volume] in Serum or PlasmaOrdered By: Imad Asaad on 05-05-4299Kjuwownws [Mass/Vol]0.4 mg/dL0.3-1.0[facility] - WestBlood Mycobacterium tuberculosis tuberculin stimulated gamma interferon detectionOrdered By: Imad Asaad on 12-30-2022M. tuberculosis tuberculin stim IFN-g Ql (Bld)See comment. [facility] - WestComment on above:QuantiFERON-TB Gold Plus is a qualitative indirect test forM tuberculosis infection (including disease) and isintended for use in conjunction with risk assessment,radiography, and other medical and diagnostic evaluations.The QuantiFERON-TB Gold Plus result is determined bysubtracting the Nil value from either TB antigen (Ag)value. The Mitogen tube serves as a control for the test.M. tuberculosis tuberculin stim IFN-g Ql (Bld)0.13 [IU]/mL.[facility] - WestM. tuberculosis tuberculin stim IFN-g Ql (Bld)0.10 [IU]/mL.[facility] Blood mitogen stimulated gamma interferon measurement (units/volume)Ordered By: [facility] on 55-92-0339Dilxsaq stimulated gamma interferon Qn (Bld)>10.00 [IU]/mL.[facility] - WestC reactive protein [Mass/volume] in Serum or PlasmaOrdered By: [facility] on 15-32-5474OVM [Mass/Vol]< 0.5 mg/dL 0.0-0.5FWyandot Memorial HospitalCalprotectin [Mass/mass] in StoolOrdered By: ad [facility] on 57-35-3072Iocxfhkbhhir (Stl) [Mass/Mass]230 ug/g0-120 [facility] - WestComment on above:Concentration Interpretation Follow-Up< 5 - 50 ug/g Normal None>50 -120 ug/g Borderline Re-evaluate in 4-6 weeks >120 ug/g Abnormal Repeat as clinically indicatedPerformed at: - [facility] [address] [id number] Director: Danielle Olson MD, Phone: [phone] Auto (Bld) [#/Vol]Ordered By: [facility] on 31-31-4193Osnjorpcyso (Bld) [#/Vol]0.1 10*3/uL0.0-0.45[facility] - WestEosinophils/100 WBC Auto (Bld)Ordered By: ad Asaad on 23-62-7126Rrnpnvsjkrj/100 WBC (Bld)0.8 %.[facility] Erythrocyte distribution width Auto (RBC) [Ratio]Ordered By: [facility] on 47-26-3445Sgbeykyzshh distribution width (RBC) [Ratio]15.3 %11.9-15.3FWyandot Memorial HospitalGlobulin Calc (S) [Mass/Vol]Ordered By: ad Asaad on 42-61-4443Iehimglb (S) [Mass/Vol]2.0 g/dLLake County Memorial Hospital - West Hematocrit Auto (Bld) [Volume fraction]Ordered By: Imad Asaad on 12-30-2022 Hematocrit (Bld) [Volume fraction]39.4 %34.0-46.4FWyandot Memorial HospitalHemoglobin [Mass/volume] in BloodOrdered By: Imad Asaad on 12-30-2022 Hemoglobin (Bld) [Mass/Vol]13.1 g/dL11.8-15.4FWyandot Memorial Hospital Hepatitis B virus surface Ag [Presence] in Serum or Plasma by ImmunoassayOrdered By: Imad Asaad on 05-04-1368IYL surface Ag IA QlNegativeNegativeLake County Memorial Hospital - WestLeukocytes [#/volume] corrected for nucleated erythrocytes in Blood by Automated counOrdered By: Imad Asaad on 28-37-7134CEU corrected for nucl RBC Auto (Bld) [#/Vol]8.1 10*3/uL3.8-11.6FWyandot Memorial HospitalLymphocytes Auto (Bld) [#/Vol]Ordered By: Imad Asaad on 12-30-2022 Lymphocytes (Bld) [#/Vol]1.9 10*3/uL1.00-4.8[facility] Lymphocytes/100 WBC Auto (Bld)Ordered By: Imad Asaad on 12-30-2022 Lymphocytes/100 WBC (Bld)22.9 %.[facility] SystemH Auto (RBC) [Entitic mass]Ordered By: Imad Asaad on 72-23-7137TXY (RBC) [Entitic mass]30.9 pg24.7-34.3FWyandot Memorial HospitalMCHC Auto (RBC) [Mass/Vol]Ordered By: Imad Asaad on 64-13-8300NCRF (RBC) [Mass/Vol]33.2 g/dL32.0-35.0[facility] - WestMCV Auto (RBC) [Entitic vol]Ordered By: Imad Asaad on 92-90-6476DGV (RBC) [Entitic vol]93.0 cS67-178YtwlakoorLake County Memorial Hospital - West Monocytes Auto (Bld) [#/Vol]Ordered By: Imad Asaad on 64-62-0787Cusvridzj (Bld) [#/Vol]0.5 10*3/uL0.0-0.8[facility] - WestMonocytes/100 WBC Auto (Bld)Ordered By: Jennifer Brody on 40-33-8586Ajnmeflqg/100 WBC (Bld)5.7 %.[facility] - WestMycobacterium tuberculosis stimulated gamma interferon [Interpretation] in Blood QualOrdered By: Jennifer Brdoy on 12-30-2022M. tuberculosis stim IFN-g Ql (Bld) [Interp]NegativeNegativeLake County Memorial Hospital - WestComment on above:No response to M tuberculosis antigens [...] the productionof interferon gamma. Chemiluminescence immunoassaymethodologyPerformed at: [facility] [place], [place] [id number] Director: Derik Decker PhD, Phone: [phone] Auto (Bld) [#/Vol]Ordered By: Jennifer Brody on 99-12-2887Xzyxukrdwdw (Bld) [#/Vol]5.7 10*3/uL1.8-7.7FWyandot Memorial HospitalNeutrophils/100 WBC Auto (Bld)Ordered By: Jennifer Brody on 12-30-2022 Neutrophils/100 WBC (Bld)69.5 %.[facility] - WestNo Panel InformationOrdered By: Jennifer Brody on 87-29-8100Rradpidqe B Core Total Antibody NegativeNegativeLake County Memorial Hospital - WestComment on above:Performed at: [facility] [address] [place], [place] [id number] Director: Derik Decker PhD, Phone: [phone] erythrocytes [Presence] in Blood by Automated countOrdered By: Imad Asaad on 97-00-4830Aspguhizk RBC Auto Ql (Bld) 0.1 /100{WBC}0-0.5FWyandot Memorial HospitalPlatelet mean volume Auto (Bld) [Entitic vol]Ordered By: Imad Asaad on 74-36-6730Hkbwfkqw mean volume (Bld) [Entitic vol]7.7 fL6.3-10.7FWyandot Memorial HospitalPlatelets Auto (Bld) [#/Vol]Ordered By: Imad Asaad on 44-28-1147Hbdyakaov (Bld) [#/Vol]261 10*3/uP725-343YdzyvcspbLake County Memorial Hospital - WestProtein [Mass/volume] in Serum or PlasmaOrdered By: Imad Asaad on 12-24-7038Jttnerr [Mass/Vol]5.9 g/dL6.4-8.9 [facility] - WestRBC Auto (Bld) [#/Vol]Ordered By: Imad Asaad on 31-64-7891EXV (Bld) [#/Vol]4.23 10*6/uL3.60-5.00Ohio[facility] Hardin Memorial Hospitalerum hepatitis B virus surface antibody detectionOrdered By: Imad Asaad on 80-99-1083KKA surface Ab Ql (S)Non-Reactive.[facility] Comment on above:Non Reactive: Inconsistent with immunity, less than 10 mIU/mL Reactive: Consistent with immunity, greater than 9.9 mIU/mLSerum or plasma albumin/globulin mass ratioOrdered By: Imad Asaad on 46-12-6458Qiwgvee/Globulin [Mass ratio]2.0 {ratio}Ohio[facility] Hardin Memorial Hospitalerum or plasma non- glucuronidated bilirubin measurement (mass/volume)Ordered By: Imad Asaad on 68-85-1030Wykuypouy.indirect [Mass/Vol]0.3 mg/dLLake County Memorial Hospital - WestWBC Auto (Bld) [#/Vol]Ordered By: Imad Asaad on 07-04-4880NRN (Bld) [#/Vol]8.1 10*3/uL3.8-11.6FWyandot Memorial HospitalWhole blood measurement of Mycobacterium tuberculosis stimulated gamma interferon relOrdered By: Jennifer Brody on 12-30-2022M. tuberculosis stim IFN-g by CD4+ CD8+ T-cells corrected for background Qn (Bld)0.13 [IU]/mL.[facility] Alanine aminotransferase [Enzymatic activity/volume] in Serum or PlasmaOrdered By: Dalia Apple on 01-36-3739LQQ [Catalytic activity/Vol]23 U/L7-52[facility] - WestAlbumin [Mass/volume] in Serum or Plasma by Bromocresol green (BCG) dye binding methoOrdered By: Dalia Apple on 85-69-4348Xyzurkn BCG dye [Mass/Vol]4.4 g/dL3.5-5.7FWyandot Memorial HospitalAlkaline phosphatase [Enzymatic activity/volume] in Serum or PlasmaOrdered By: Dalia Apple on 79-00-0424NRW [Catalytic activity/Vol]44 U/O42-690NxmeyypedLake County Memorial Hospital - WestAspartate aminotransferase [Enzymatic activity/volume] in Serum or PlasmaOrdered By: Dalia Apple on 83-00-9434BUK [Catalytic activity/Vol]16 U/L 13-39[facility] - WestBasophils Auto (Bld) [#/Vol]Ordered By: Dalia Apple on 56-75-5513Wofjbaock (Bld) [#/Vol]0.1 10*3/uL0.0-0.2FWyandot Memorial HospitalBasophils/100 WBC Auto (Bld)Ordered By: Dalia Apple on 16-17-6009Bzrimahqe/100 WBC (Bld)0.5 %.[facility] Bilirubin.total [Mass/volume] in Serum or PlasmaOrdered By: Dalia Apple on 05-67-9510Giuxsqlek [Mass/Vol]0.4 mg/dL0.3-1.0[facility] Calcium [Mass/volume] in Serum or PlasmaOrdered By: Dalia Apple on 12-14-2022 Calcium [Mass/Vol]9.7 mg/dL8.6-10.3FWyandot Memorial HospitalCarbon dioxide, total [Moles/volume] in Serum or PlasmaOrdered By: Dalia Apple on 23-33-0366HI8 [Moles/Vol]28.1 mmol/L21.0-31.0[facility] Chloride [Moles/volume] in Serum or PlasmaOrdered By: Dalia Apple on 12-14-2022 Chloride [Moles/Vol]101 mmol/Q89-925TgfuuyurlLake County Memorial Hospital - WestCreatinine [Mass/volume] in Serum or PlasmaOrdered By: Dalia Apple on 83-77-2089Abdhrdpmyx [Mass/Vol]0.62 mg/dL0.60-1.20[facility] - WestEosinophils Auto (Bld) [#/Vol]Ordered By: Dalia Apple on 46-42-9249Bmibridfmzo (Bld) [#/Vol]0.0 10*3/uL0.0-0.45[facility] - WestEosinophils/100 WBC Auto (Bld) Ordered By: Dalia Apple on 28-94-1701Hemyqqbrihj/100 WBC (Bld)0.0 %.[facility] - WestErythrocyte distribution width Auto (RBC) [Ratio]Ordered By: Dalia Apple on 25-20-2364Scgklznnwih distribution width (RBC) [Ratio]15.1 % 11.9-15.3FWyandot Memorial HospitalGlobulin Calc (S) [Mass/Vol]Ordered By: Dalia Apple on 24-24-7029Wotefdyn (S) [Mass/Vol]2.7 g/dLLake County Memorial Hospital - WestGlucose [Mass/volume] in Serum or PlasmaOrdered By: Dalia Apple on 55-87-4968Wiujasz [Mass/Vol]66 mg/tW45-472XvaohzaskLake County Memorial Hospital - [facility] Comment on above:ADA recommended reference rangeRandom Glucose Reference Range is dependent on time and content of last meal. Glucose of more than 200 mg/dL in a nonstressed, ambulatory subject supports the diagnosisof Diabetes Mellitus. Hematocrit Auto (Bld) [Volume fraction]Ordered By: Dalia Appel on 12-14-2022 Hematocrit (Bld) [Volume fraction]39.7 %34.0-46.4FWyandot Memorial HospitalHemoglobin [Mass/volume] in BloodOrdered By: Dalia Apple on 12-14-2022 Hemoglobin (Bld) [Mass/Vol]13.2 g/dL11.8-15.4FWyandot Memorial Hospital Leukocytes [#/volume] corrected for nucleated erythrocytes in Blood by Automated counOrdered By: Dalia Apple on 42-01-1263ASL corrected for nucl RBC Auto (Bld) [#/Vol]11.1 10*3/uL3.8-11.6FWyandot Memorial HospitalLymphocytes Auto (Bld) [#/Vol]Ordered By: Dalia Apple on 44-08-2953Rnhohxwvsgi (Bld) [#/Vol]0.9 10*3/uL1.00-4.8[facility] - WestLymphocytes/100 WBC Auto (Bld) Ordered By: Dalia Apple on 95-37-8271Efbuqbzpeak/100 WBC (Bld)8.3 %.[facility] SystemH Auto (RBC) [Entitic mass]Ordered By: Dalia Apple on 00-88-5777UMV (RBC) [Entitic mass]30.5 pg24.7-34.3FWyandot Memorial HospitalMCHC Auto (RBC) [Mass/Vol]Ordered By: Dalia Apple on 59-33-6884NAKT (RBC) [Mass/Vol]33.2 g/dL32.0-35.0[facility] - WestMCV Auto (RBC) [Entitic vol]Ordered By: Dalia Apple on 53-27-5369XJP (RBC) [Entitic vol]92.1 hG96-379BwjedpgooLake County Memorial Hospital - WestMagnesium [Mass/volume] in Serum or PlasmaOrdered By: Dalia Apple on 76-21-0748Lilndwnzw [Mass/Vol]1.9 mg/dL1.9-2.7 [facility] - WestMonocytes Auto (Bld) [#/Vol]Ordered By: Dalia Apple on 30-56-7884Dsjkklkeu (Bld) [#/Vol]0.6 10*3/uL0.0-0.8[facility] - WestMonocytes/100 WBC Auto (Bld)Ordered By: Dalia Apple on 12-14-2022 Monocytes/100 WBC (Bld)5.5 %.[facility] - WestNeutrophils Auto (Bld) [#/Vol]Ordered By: Dalia Apple on 76-07-6580Frtyudqhlli (Bld) [#/Vol]9.5 10*3/uL1.8-7.7FWyandot Memorial HospitalNeutrophils/100 WBC Auto (Bld) Ordered By: Dalia Apple on 23-43-8398Pvjgihxutid/100 WBC (Bld)85.7 %.[facility] - WestNo Panel InformationOrdered By: Dalia Apple on 78-75-3723Geknkcsxx GFR (CKD-EPI)> 60.0 mL/MinLake County Memorial Hospital - West Pharmacy Creatinine Clearance (ChemN/[facility] Hospital - YoungstownNucleated erythrocytes [Presence] in Blood by Automated countOrdered By: Dalia Apple on 61-96-6712Bbdnctyic RBC Auto Ql (Bld)0.0 /100{WBC}0-0.5FWyandot Memorial HospitalPlatelet mean volume Auto (Bld) [Entitic vol]Ordered By: Dalia Apple on 96-56-5631Gdrytptd mean volume (Bld) [Entitic vol]7.5 fL6.3-10.7 [facility] - WestPlatelets Auto (Bld) [#/Vol]Ordered By: Dalia Apple on 17-85-9686Xmczpvogd (Bld) [#/Vol]292 10*3/zT347-325DthgohnvtLake County Memorial Hospital - WestPotassium [Moles/volume] in Serum or PlasmaOrdered By: Dalia Apple on 47-12-0217Yepozzpdn [Moles/Vol]4.0 mmol/L3.5-5.1FWyandot Memorial HospitalProtein [Mass/volume] in Serum or PlasmaOrdered By: Dalia Apple on 58-35-3855Kpqiwoh [Mass/Vol]7.1 g/dL6.4-8.9[facility] RBC Auto (Bld) [#/Vol]Ordered By: Dalia Apple on 39-37-9113MER (Bld) [#/Vol] 4.31 10*6/uL3.60-5.00[facility] Memorial Hospitalerum or plasma albumin/globulin mass ratioOrdered By: Dalia Apple on 12-14-2022 Albumin/Globulin [Mass ratio]1.6 {ratio}[facility] Memorial Hospitalerum or plasma anion gap determinationOrdered By: Dalia Apple on 75-27-8068Xujxy gap [Moles/Vol]9.9 mmol/L6.0-15.0[facility] Memorial Hospitalodium [Moles/volume] in Serum or PlasmaOrdered By: Dalia Apple on 99-48-6923Lgskpv [Moles/Vol]135 mmol/S914-543UuiacbpciLake County Memorial Hospital - WestUrea nitrogen [Mass/volume] in Serum or PlasmaOrdered By: Dalia Apple on 10-31-4919Dziw nitrogen [Mass/Vol]17 mg/dL7-25L[facility] - WestWBC Auto (Bld) [#/Vol]Ordered By: Dalia Apple on 16-60-0122ITM (Bld) [#/Vol]11.1 10*3/uL 3.8-11.6FWyandot Memorial HospitalPREG HCG QUALon 49-47-8472WIQETUQPV, QUALNegativeNormalNEGATIVEThe Marymount HospitalComment on above:Performed By: #### PREG #### [facility] [address] [place] [address] Dr. Juliet Barton AUTO DIFFon 97-13-1858PDIC #0.0 103/ulNormal0.0-0.1The [facility]mount HospitalComment on above:Performed By: #### CBC #### [facility] [address] [address] [address] Juliet Balbuenasophils/100 WBC (Bld)0.4 %Normal0.2-2.0[facility] Comment on above:Performed By: #### CBC #### [facility] [address] [place] [address] Dr. Juliet Her #0.1 103/ulNormal0.0-0.7The [facility] HospitalComment on above: Performed By: #### CBC #### [facility] [address] [place] [address] Dr. Juliet Guzmánosinophils/100 WBC (Bld)0.6 %Critically low0.9-7.0[facility] [place] Hospitalment on above:Performed By: #### CBC #### [facility] [address] [place] [address] Dr. Juliet Guzmánrythrocyte distribution width (RBC) [Ratio]13.6 %Kcwoui27.0-15.0 The [facility] HospitalComment on above:Performed By: #### CBC #### [facility] [address] [place] [address] Dr. Juliet MedinaHematocrit (Bld) [Volume fraction]38.4 %Ppqwmp63.0-48.0The [facility] HospitalComment on above:Performed By: #### CBC #### [facility] [address] [place] [address] Dr. Juliet MedinaHemoglobin (Bld) [Mass/Vol]13.1 g/iGIzwzoo57.0-16.0[facility] on above:Performed By: #### CBC #### [facility] [address] [place] [address] Dr. Juliet Rojas #0.02 10e3/ulNormal0.00-0.03[facility] on above:Performed By: #### CBC #### [facility] [address] [place] [address] Dr. Juliet MedinaIG %0.3 %Normal0.0-0.5[facility] on above: Performed By: #### CBC #### [facility] [address] [place] [address] Dr. Juliet VazquezMPH #1.3 103/ulNormal1.2-3.8[facility]Com[facility] on above:Performed By: #### CBC #### [facility] [address] [place] [address] Dr. Juliet Vazquezmphocytes/100 WBC (Bld)16.5 %Critically low20.5-60.0[facility] on above:Performed By: #### CBC #### [facility] [address] [place] [address] Dr. Juliet CooperUAL DIFF REQNONormalThe Marymount HospitalComment on above: Performed By: #### CBC #### [facility] [address] [place] [address] Dr. Juliet Shah (RBC) [Entitic mass]31.1 zfCsxrzz99.7-34.0The [facility] HospitalComment on above:Performed By: #### CBC #### [facility] [address] [place] [address] Dr. Juliet Shah (RBC) [Mass/Vol]34.1 g/lHTtdmal95.9-35.2The [facility] HospitalComment on above:Performed By: #### CBC #### [facility] [address] [place] [address] Dr. Juliet Shah (RBC) [Entitic vol]91.2 fCFeoyec16.0-99.0The [facility] HospitalComment on above:Performed By: #### CBC #### [facility] [address] [place] [address] Dr. Juliet Patel #0.6 103/ulNormal0.3-0.8The [facility] HospitalComment on above:Performed By: #### CBC #### [facility] [address] [place] [address] Dr. Juliet Blakelyocytes/100 WBC (Bld)7.7 %Normal1.7-12.0[facility] Comment on above:Performed By: #### CBC #### [facility] [address] [place] [address] Dr. Juliet Brown #5.8 103/ulNormal1.4-6.5The [facility] HospitalComment on above:Performed By: #### CBC #### [facility] [address] [place] [address] Dr. Juliet Marvinutrophils/100 WBC (Bld)74.5 %Pawogt64.0-75.0The [facility] HospitalComment on above:Performed By: #### CBC #### [facility] [address] [address] [address] Juliet MedinaPlatelet mean volume (Bld) [Entitic vol]9.2 fLCritically low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 08:39-0500Body mass index (BMI) [Ratio]18.01 kg/h2QidnrMaru Maguire MD Work Phone: bon [facility]-02-2024 08:39-0500Body kbomwt30.16 kgMaru Maguire MD Work Phone: bon [facility]-18-2024 13:06-0500Body .2 cmStcz [facility]-18-2024 13:06-0500Body mass index (BMI) [Ratio]18.01 kg/m2Stcz [facility]-18-2024 13:06-0500Body fxrhet26.[address] [place], [place] [address]Phorest11-05-2024 15:18-0500Respiratory rate16 /Maria R Elmore MD Work Phone: [facility]2024 07:45-0500Body hcezbvxjbbf43.01 [degF]Mason Elmore MD Work Phone: [facility] 911 View11-05-2024 07:45-0500Diastolic blood sbvoyljb52 mm[Hg]Mason Elmore MD Work Phone: [facility] 911 View11-05-2024 07:45-0500Heart rate67 /Maria R [facility]more MD Work Phone: [facility]-2024 07:45-0500Systolic blood otttxzun29 mm[Hg]Mason Elmore MD Work Phone: [facility] 911 View11-05-2024 02:30-0108TuV8% (BldA) [Mass fraction]96 %Mason Elmore MD Work Phone: [facility] 911 View10-30-2024 15:01-0400Body xgthve782.9 cmRvenita Elmore MD Work Phone: [facility] 911 View10-28-2024 21:51-0400Body mass index (BMI) [Ratio]19.42 kg/o7WqiflMason Elmore MD Work Phone: bon [facility]10-28-2024 21:51-0400Body .4 kgMason Elmore MD Work Phone: bon [facility]10-19-2024 16:17-0400Body kfmtou254.9 cmTayori Short [employer]-DIRECTOR OF RESEARCH AND DEVELOPMENT Work Phone: [facility]10-19-2024 16:17-0400Body mass index (BMI) [Ratio]19.08 kg/z1Mbilhn Short [employer]-DIRECTOR OF RESEARCH AND DEVELOPMENT Work Phone: [facility]10-19-2024 16:17-0400Body umkknwcpspj79.8 [degF]Ami Short [employer]-DIRECTOR OF RESEARCH AND DEVELOPMENT Work Phone: [facility]10-19-2024 16:17-0400Body bocymu45.43 kgTayltonja Short [employer]-DIRECTOR OF RESEARCH AND DEVELOPMENT Work Phone: [facility]10-19-2024 16:17-0400Diastolic blood mm[Hg]Ami Short [employer]-DIRECTOR OF RESEARCH AND DEVELOPMENT Work Phone: [facility]10-19-2024 16:17-0400Heart rate 103 /minTaylor Short [employer]-DIRECTOR OF RESEARCH AND DEVELOPMENT Work Phone: [facility] HospitalYg[facility] Lvxuji76-74-4457 16:17-0400 Respiratory rate16 /minTayltonja Short BACK[employer]-DIRECTOR OF RESEARCH AND DEVELOPMENT Work Phone: [facility]10-19-2024 16:17-3677LeN8% (BldA) [Mass fraction]98 %Ami Short [employer]-DIRECTOR OF RESEARCH AND DEVELOPMENT Work Phone: [facility]10-19-2024 16:17-0400Systolic blood pwzutedt271 mm[Hg]Ami Short [employer]-DIRECTOR OF RESEARCH AND DEVELOPMENT Work Phone: [employer] Hcmvgs59-16-4373 06:39-0400Diastolic blood yifgagoj64 mm[Hg]Meet Galindo DO Work Phone: BDS Code42[facility]ERYASSSU EZBMKM29-47-2071 06:39-0400Heart rate76 /minStewarlashawn Galindo DO Work Phone: [phone]05-20-2024 06:39-0400 Respiratory rate19 /minStewart Mateo DO Work Phone: [facility]05-20-2024 06:39-0069MtO7% (BldA) [Mass fraction]100 %Meet Galindo DO Work Phone: [phone]05-20-2024 06:39-0400Systolic blood cymnppge23 mm[Hg]Meet Galindo DO Work Phone: [phone]05-20-2024 05:13-0400Body lbfbkmazsry65.5 [degF]Meet Galindo DO Work Phone: [facility]05-20-2024 04:48-0400Body axxnec925.6 cmSteblair Galindo DO Work Phone: [facility]05-20-2024 04:48-0400Body mass index (BMI) [Ratio]19.69 kg/u9BrktmwnMeet Galindo DO Work Phone: [facility]05-20-2024 04:48-0400Body zkxexv87.34 kgStalbertina Galindo DO Work Phone: [phone]02-14-2024 17:02-0500Body .9 [facility]Mc[facility] Work Phone: [facility]02-14-2024 17:02-0500Body mass index (BMI) [Ratio]19.08 kg/m6DvtvntMemorial Healthcare [facility] Work Phone: [facility]02-14-2024 17:02-0500Body nsyqfyyyidw89.2 [degF]Marixa Barrientos BACK[employer]-DIRECTOR OF RESEARCH AND DEVELOPMENT Work Phone: [employer]02-14-2024 17:02-0500Body sdpqeg44.43 kgMarixa Barrientos [employer]-DIRECTOR OF RESEARCH AND DEVELOPMENT Work Phone: [employer]02-14-2024 17:02-0500Diastolic blood rqdjijas79 mm[Hg]Marixa Barrientos [employer]-DIRECTOR OF RESEARCH AND DEVELOPMENT Work Phone: [employer]02-14-2024 17:02-0500Heart rate 81 /[facility]-DIRECTOR OF RESEARCH AND DEVELOPMENT Work Phone: [employer]02-14-2024 17:02-0500 Respiratory rate16 /[facility] [employer]-DIRECTOR OF RESEARCH AND DEVELOPMENT Work Phone: [employer]02-14-2024 17:02-5001RuJ0% (BldA) [Mass fraction]100 %Marixa Barrientos APRN-DIRECTOR OF RESEARCH AND DEVELOPMENT Work Phone: [employer]02-14-2024 17:02-0500Systolic blood nrodcrxy977 mm[Hg]Marixa Barrientos APRN-DIRECTOR OF RESEARCH AND DEVELOPMENT Work Phone: [employer]11-22-2023 09:30-0500Body .91 cmDalia Apple Other [employer] Other 11-22-2023 09:30-0500Body mass index (BMI) [Ratio] 20.48 kg/h6KceeymDalia Apple Other [employer] Other 11-22-2023 09:30-0500Body jkelktyervt27.2 [degF]Dalia Ambika Other [employer] Other 11-22-2023 09:30-0500Body cocsnt02.42 kgGloria Apple Other [employer] Other 11-22-2023 09:30-0500Diastolic blood ehklgsxh93 mm[Hg] Dalia Ambika Other [employer] Other 11-22-2023 09:30-0500Respiratory rate18 /minGloria Apple Other [employer] Other 11-22-2023 09:30-9461RkA1% (BldA) [Mass fraction]99 % Dalia Ambika Other [employer] Other 11-22-2023 09:30-0500Systolic blood mm[Hg] Dalia Apple Other [employer] Other 11-09-2023 13:00-0500Body .91 cmImad Asaad Other [employer] Other 11-09-2023 13:00-0500Body mass index (BMI) [Ratio] 20.82 kg/m2Imad Asaad Other [employer] Other 11-09-2023 13:00-0500Body uxpimg07.42 kgImad Asaad Other [employer] Other 11-09-2023 13:00-0500Diastolic blood mm[Hg] Imad Asaad Other [employer] Other 11-09-2023 13:00-0500Respiratory rate18 /minImad Asaad Other [employer] Other 11-09-2023 13:00-0500Systolic blood wexeajys220 mm[Hg] Imad Asaad Other [employer] Other 11-01-2023 15:15-0400Body fdxaqf984.91 cmGloria Apple Other [employer] Other 11-01-2023 15:15-0400Body mass index (BMI) [Ratio] 20.33 kg/b4Prqxmrbrandon Apple Other [employer] Other 11-01-2023 15:15-0400Body tzmavwwiifi14 [degF]Dalia Ambika Other [employer] Other 11-01-2023 15:15-0400Body mtrvid32.02 kgGlbrandon Apple Other [employer] Other 11-01-2023 15:15-0400Diastolic blood eqnzkqcb89 mm[Hg] Dalializzeth Apple Other [employer] Other 11-01-2023 15:15-0400Respiratory rate18 /minGlbrandon Apple Other [employer] Other 11-01-2023 15:15-8088FzA2% (BldA) [Mass fraction]98 % Dalializzeth Apple Other [employer] Other 11-01-2023 15:15-0400Systolic blood ggyshsft956 mm[Hg] Dalia Ambika Other [employer] Other 10-06-2023 11:30-0400Body fvyfri124.91 cmGloria Apple Other [employer] Other 10-06-2023 11:30-0400Body mass index (BMI) [Ratio] 19.28 kg/p4Xeppcbbrandon Apple Other [employer] Other 10-06-2023 11:30-0400Body lpyfhr86.02 kgGlbrandon Apple Other [employer] Other 10-06-2023 11:30-0400Diastolic blood zlykvfsd04 mm[Hg] Daliagurjit Apple Other [employer] Other 10-06-2023 11:30-0400Respiratory rate18 /minGlbrandon Apple Other [employer] Other 10-06-2023 11:30-9141HdW2% (BldA) [Mass fraction]98 % Dalia Apple Other [employer] Other 10-06-2023 11:30-0400Systolic blood qhbkayqp377 mm[Hg] Dalia Ambika Other [employer] Other 08-22-2023 08:15-0400Body .91 cmIvonne Martinez Other [employer] Other 08-22-2023 08:15-0400Body mass index (BMI) [Ratio] 18.96 kg/q6Slawvnd Schwerer Other [employer] Other 08-22-2023 08:15-0400Body sktxtswxqbe31.7 [degF] Ivonne Schwerer Other [employer] Other 08-22-2023 08:15-0400Body xkbovh60.11 kgKaitlin Schwerer Other [facility] Other 08-22-2023 08:15-0400Diastolic blood nlveqefq17 mm[Hg] Ivonne Schwerer Other [facility] Other 08-22-2023 08:15-0400Respiratory rate18 /minKaitlin Schwerer Other [facility] Other 08-22-2023 08:15-6647JmN2% (BldA) [Mass fraction]99 % Ivonne Schwerer Other [employer] Other 08-22-2023 08:15-0400Systolic blood isqbjikh196 mm[Hg] Ivonne Schwerer Other [facility] Other 08-15-2023 08:35-0400Diastolic blood tblitkwr14 mm[Hg] PHYSICIAN NO [facility]08-15-2023 08:35-0400Heart rate58 /minPHYSICIAN [facility]08-15-2023 08:35-0400Respiratory rate16 /minPHYSICIAN [facility]08-15-2023 08:35-2188SuE3% (BldA) [Mass fraction]100 %PHYSICIAN NO [facility]08-15-2023 08:35-0400Systolic blood fmgknyvh956 mm[Hg]PHYSICIAN NO [facility]08-15-2023 07:58-0400 Body aemmoh933.91 cmPHYSICIAN [facility] 02-16-2023 07:58-0400Body mass index (BMI) [Ratio]17.6 kg/a6LZKSSMDDY NO [facility]08-15-2023 07:58-0400Body lwnaix92.34 kg PHYSICIAN [facility]08-15-2023 06:44-0400Body jisxjylfnej50.9 [degF]PHYSICIAN NO [facility] 12-31-2022 15:00-0400Diastolic blood mm[Hg]PHYSICIAN NO [facility]06-29-2023 15:00-0400Heart rate66 /minPHYSICIAN [facility]06-29-2023 15:00-0400Respiratory rate 18 /minPHYSICIAN [facility]06-29-2023 15:00-0400 SaO2% (BldA) [Mass fraction]98 %PHYSICIAN NO [facility]06-29-2023 15:00-0400Systolic blood oyitjszc20 mm[Hg]PHYSICIAN NO [facility]06-29-2023 13:03-0400Body xbbign902.[address] [facility]06-29-2023 13:03-0400Body diustkucvhd72.7 [degF]PHYSICIAN NO [facility] 12-31-2022 13:03-0400Body hazilj03.44 kgPHYSICIAN [facility]06-21-2023 13:00-0400Body xmybjk782.91 cmImad LiquidCompassad Other [employer] Other 06-21-2023 13:00-0400Body mass index (BMI) [Ratio] 17.33 kg/m2Imad Asaad Other [employer] Other 06-21-2023 13:00-0400Body .44 kgImad LiquidCompassad Other [employer] Other 06-21-2023 13:00-0400Diastolic blood rijhlsbh08 mm[Hg] Imad Asaad Other [employer] Other 06-21-2023 13:00-0400Systolic blood xumhivpz46 mm[Hg] Imad Asaad Other [employer] Other 06-14-2023 09:00-0400Body mrewsy071.91 cmJustin Sarahi Other [employer] Other 06-14-2023 09:00-0400Body mass index (BMI) [Ratio] 17.65 kg/j4Uobemp Sarahi Other [employer] Other 06-14-2023 09:00-0400Body vuifbj82.35 kgJustin Sarahi Other [facility] Other 06-05-2023 07:30-0400Body yhpapn539.91 cmGloria Apple Other [employer] Other 06-05-2023 07:30-0400Body mass index (BMI) [Ratio] 17.65 kg/n1Gusawf Ambika Other [employer] Other 06-05-2023 07:30-0400Body xujvzm22.35 kgGloria Apple Other [employer] Other 06-05-2023 07:30-0400Diastolic blood tcimbsud58 mm[Hg] Dalia Ambika Other [employer] Other 06-05-2023 07:30-0400Respiratory rate18 /minGloria Ambika Other [employer] Other 06-05-2023 07:30-9880WaV7% (BldA) [Mass fraction]98 % Dalia Apple Other [employer] Other 06-05-2023 07:30-0400Systolic blood zduvtrqa551 mm[Hg] Dalia Apple Other [employer] Other 06-03-2023 22:52-0400Body rbbjyc666.91 cmPHYSICIAN [facility]06-03-2023 22:52-0400Body .8 [degF]PHYSICIAN [facility]06-03-2023 22:52-0400 Body .8 kgPHYSICIAN [facility]06-03-2023 22:52-0400Diastolic blood ofzsklgq61 mm[Hg]PHYSICIAN [facility]06-03-2023 22:52-0400Heart rate70 /minPHYSICIAN [facility]06-03-2023 22:52-0400Respiratory rate16 /min PHYSICIAN [facility]06-03-2023 22:52-7715RyM5% (BldA) [Mass fraction]100 %PHYSICIAN [facility] 12-05-2022 22:52-0400Systolic blood wdoqlnls832 mm[Hg]PHYSICIAN [facility]03-16-2021 11:54-0400BMI (Body Mass Index)19.11 kg/e0HfrebThe [facility] SystemHlnygPgbgDydtpz36-93-4702 11:54-0400Body yebirr97.34 [facility] 11:54-0400BP Jcnhdecxw39 mm[Hg][facility] 09-17-2020 11:54-0400BP Hdmrvhpz61 mm[Hg][facility] SystemNyditWtxtMyfdxi16-88-0423 11:54-9842Oromrn171.2 Iselakeleonela NvaryJewzUtjweq48-90-5751 11:54-0400Pulse (Heart Rate)80 /minCandy PfxgpJopgPgrviv55-31-8024 11:54-0400Pulse Dugrsjgm39 %Candy HrszbSjwuBvjbyc22-14-8622 15:50-0500BMI (Body Mass Index)19.42 kg/y4Tlxeyjkc KcvhWrygYfserl17-30-6270 15:50-0500Body Dprtdzfkenx41.01 [degF]Abdiel Smith FrdcHoswgu79-22-0179 15:50-0500Body clipyd19.25 kgalexandrea [facility] 09-03-2020 15:50-0500BP Wypjexler92 mm[Hg][place] QpxdGapkCobtqy85-03-7922 15:50-0500BP Glhgiimn420 mm[Hg][place] WrkrJoefRmvnbv55-14-3724 15:50-0500 Nphdgd711.2 cmCutler Army Community Hospitalhaleigh AarqFdkoQanadf48-55-2149 15:50-0500Pulse (Heart Rate)109 /minCutler Army Community Hospitalhaleigh CpjbLzdgKycevz36-83-1397 15:50-0500Pulse Agfkzxlz92 %Abdiel Smith OpskNqwscn11-05-2679 10:07-0500BMI (Body Mass Index)18.32 kg/z3Mwcjmyuxalexandrea Smith JrmqSfrvov81-26-8646 10:07-0500Body Yegnagazqcy82.5 [degF]Abdiel Smith UshfPcydqp36-28-9860 10:07-0500Body ujbwpe85.07 kgTrihealthlinda [facility] 07-18-2020 10:07-0500BP Qzbplmkow19 mm[Hg][place] CmdgGfwzPolgxq74-87-3439 10:07-0500BP Lebtpbwy152 mm[Hg][place] RzpoLyslBfkdoo84-60-6032 10:07-0500 Omgxur610.2 cmTrihealthlinda KhvrGzfqJpcfae50-59-3871 10:07-0500Pulse (Heart Rate)103 /minAbdiel DnosXolkNuhrzz79-77-9518 10:07-0500Pulse Khnompcg24 %Abdiel Smith VudeOdhdsw92-49-1522 12:04-0500BMI (Body Mass Index)18.79 kg/v9NqnqxmeeAbdiel Smith FqavVjiaxd47-70-4241 12:04-0500Body Kdovtqtvffb65.01 [degF]Abdiel Smith HdhoFbegqn06-32-0678 12:04-0500Body .43 kgTrihealthlinda [facility] 06-19-2020 12:04-0500BP Qdmqiuaxp90 mm[Hg][facility] HospitalBpazYzieKamtyf35-45-6009 12:04-0500BP Urgzjajv459 mm[Hg][place] VidjFswmMbevrg65-33-5979 12:04-0500 Vvaqrc071.2 cmBlanchard [facility] HospitalHsqqOosnEawqnr80-67-5411 12:04-0500Pulse (Heart Rate)76 /stevenCutler Army Community Hospitalhaleigh TvdzIuffYeglns92-59-4580 12:04-0500Pulse Iocpmfmn76 %[place] [facility] KvcmVasysf26-74-5500 10:28-0500BMI (Body Mass Index)18.48 kg/m7Zqeha [facility] HospitalPhdwGfyfnv94-33-7194 10:28-0500Body .52 kgW[facility]low [facility] Centerleonela [facility] 06-18-2020 10:28-0500BP Shhmtuabl15 mm[Hg][facility] SystemRonspOyfrGkbjge30-90-0418 10:28-0500BP Upsimhbk00 mm[Hg][facility] SystemEmmxqGzhxFyjcck59-08-4711 10:28-0500Pulse (Heart Rate)79 /Juanjose YscjzZbeoZqgoyx32-85-1667 13:04-0500Respiratory Rate14 /minIirislizzeth PvwpaFcorByopzm21-49-1357 08:02-0500Body Cqvjlytaper18.9 [degF][facility]MnnzmWpriXtekoh71-48-0602 08:02-0500BP Efjztubdf69 mm[Hg][facility] 06-04-2020 08:02-0500BP Mugisvap10 mm[Hg][facility] HospitalXvyewBymfImennu69-00-7927 08:02-0500Pulse (Heart Rate)63 /Maikel ZsyfpUzqbHhkduc87-02-4367 08:02-0500 Pulse Bvmmzbfu300 %Geronimo TnjbyKvviZlyxot29-01-0045 01:06-0500BMI (Body Mass Index)18.78 kg/m2[facility] HospitalEvgwtPzwuRfhgdj11-01-0161 01:06-0500Body wbjesl37.4 kg[facility] HospitalSqvecQhbjSghsdt59-99-3933 00:20-3591[place]688.2 cm[facility] 09-10-2018 18:42-0500BMI (Body Mass Index)20.8 kg/r7BxksvpReg[facility] 09-10-2018 18:42-0500Body Xtfolkiggip41.2 [degF][facility] 09-10-2018 18:42-0500BP Ejwecuskj67 mm[Hg][facility] CompanyWbhfpdXkeeSlxsjp53-01-9779 18:42-0500BP Ijvcvjep93 mm[Hg][facility] CompanyRtskpwMympUehbfo67-07-8859 18:42-0500Pulse (Heart Rate)101 /[facility]03-09-2019 18:42-0500Pulse Wigxqwbu34 %[facility] HospitalBbugupKbvsHajxkj35-86-3941 18:42-0500Respiratory Rate18 /[facility]03-09-2019 18:42-1940Zqeyzv37.24 kgReg[facility] 05-01-2018 14:01-0400Pulse Duznwvnb65 %[facility] HospitalVkqjjgVmfnZimcqk60-63-0697 14:01-0400Respiratory Rate16 /Jayme RapejwFmhgFslsyj65-12-6803 06:16-0400Body Tkgfvakdgdj07.7 [degF]Edil LryaamHhnaJjpqek90-94-4473 06:16-0400BP Xjgqhvmkz95 mm[Hg]Edil HmxkmzTwoxUpiqpu49-17-1325 06:16-0400BP Oyahkdnp272 mm[Hg]Edil NcdafdZazpVoykic45-63-3947 06:16-0400Pulse (Heart Rate)74 /Jayme [facility] HospitalUmxzCcabsp14-18-0735 11:52-0400BMI (Body Mass Index)20.36 kg/u3Lbtom [facility]adelphiaalondra TfnvMsrizz82-80-4684 11:52-0708Tiixzb519.2 cmEdil YfudqdDblvCrmvhq65-14-2122 11:52-2152Qkzrlm92.97 kgEdil [place] Encounters Encounter DateEncounter [facility] ProviderFacilityStart: 05-14-2025 End: 48-87-2768lqdngdfbkbUPATAC [facility] HospitalStart: 05-14-2025 End: 90-66-2341Tjszuqxalg hospital visit by Maribel Apple DO Work Phone: [facility] LABStart: 05-07-2025 End: 76-25-0307amdoevywboXYYYUBOK CAMPBELLFacility:[facility] Start: 05-01-2025 End: 44-41-0613lgyagfawhcKMGAJhppnyqa:[facility] HospitalStart: 04-30-2025 End: 89-65-2385jtntmklxpgFvupcn A Johns DO Work Phone: -[facility] HoodyStart: 04-30-2025 End: 49-52-4313Jwrnwns encounter procedureDalia MALONEYSancta Maria Hospital Shari Work Phone: Start: 04-26-2025 End: 64-22-8875flwjugxkqwVEVGOR BRAGA NETOFacility:[facility] Start: 04-11-2025 End: 07-15-1060qluyinyvjeINWMZE A JOHNSScci Hospital [facility] HospitalStart: 03-30-2025 ambulatoryOBDULIA BONILLAFacility:[facility] HospitalStart: 03-30-2025 End: 41-12-7392zsqtrkaspzWFDYWIJZ SINGHFacility:[facility] HospitalStart: 03-29-2025 End: 36-26-0677eeeibuskonZKLNHHHYC SCOTTFacility:[facility] HospitalStart: 03-27-2025 End: 29-54-5970wwhjjjeusiNHHXUIBC SINGHFacility:[facility] HospitalStart: 03-22-2025 End: 41-56-1140uxipsytjhqPDYMVLSY SINGHFacility:[facility]tart: 03-22-2025 End: 10-20-4546nrycazuwjwKUDLDXQ ADAMOWICZcility:[facility] Start: 03-16-2025 End: 41-10-2456swwwuqpogoOWRZJOGRA SCOTTFacility:[facility]tart: 03-16-2025 End: 13-77-4026Tdcjebauf to same day surgery Allen Bridges APRN.CNP Work Phone: [facility] hospitalectal SurgeryComment on above:Crohn's disease of both small and large intestine with abscess (HCC) (Primary Dx); Nausea; Nausea and vomiting, unspecified vomiting type; Gastro-esophageal reflux disease without esophagitisStart: 03-16-2025 End: 71-76-5015Yydvugsrpzha consultation with Adilia Bridges APRN.CNP Work Phone: [facility] hospitalectal SurgeryStart: 03-15-2025 End: 72-64-2583nlvnjnqshaMILGKP BRAGA NETOFacility:[facility] Start: 03-14-2025 End: 49-59-1392uxbipsuyegUSZNGPTT SINGHFacility:[facility] Rehabilitationtart: 03-09-2025 End: 25-78-2976Prqptymkk encounterArmand Castaneda MD, PhD Work Phone: [facility] HB-3Comment on above:Insurance Authorization (Additional information required [id number] ([facility]) - INJECTION, RISANKIZUMAB-RZAA, INTRAVENOUS, 1 MG//)Start: 03-08-2025 End: 21-75-6298bhvciqwlmzLICPBA BRAGA NETOFacility:[facility] Start: 03-08-2025 End: 50-78-5089Xzzbyle encounter Bridget Castaneda MD, PhD Work Phone: GastroenterologyComment on above:Iron deficiency anemia, unspecified iron deficiency anemia type (Primary Dx); Crohn's disease with complication, unspecified gastrointestinal tract location (HCC); Other fatigueStart: 03-08-2025 End: 65-85-9897Jjdinumkq encounterArmand Castaneda MD, PhD Work Phone: GastroenterologyComment on above:OrdersStart: 03-07-2025 End: 73-66-3680xnldjbafoxOicxgi [facility] Work Phone: GastroenterologyComment on above:Crohn's disease with complication, unspecified gastrointestinal tract location (HCC) (Primary Dx) Start: 03-07-2025 End: 81-94-6147Yhoyloagsjmr consultation with Amelie Kriss [facility] Work Phone: GastroenterologyStart: 03-06-2025 End: 36-63-8712mlqxfrrdhiZtj/[place] Work Phone: Hematology/OncologyStart: 03-06-2025 End: 73-50-7487Hemmddrmo encounterSbeverly Dupont PA-C Work Phone: Vascular MedicineComment on above:Disorders of fluid, electrolyte, and acid-base balance; On total parenteral nutrition (TPN); Leukocytosis, unspecified typeStart: 03-06-2025 End: 09-10-1616Duwilvztrbybm drug monitoringMariam Dupont PA-C Work Phone: Vascular MedicineComment on above:Anticoagulation management encounter (Primary Dx)Start: 03-06-2025 End: 04-83-9961Phjolunzwwnk consultation with Lisbet Dupont PA-C Work Phone: Vascular MedicineStart: 03-06-2025 End: 86-72-8900dmuihlpzmcLGWMNPAZ CAMPBELLFacility:[facility] Start: 03-02-2025 End: 94-06-9093jnvqqvzeefMtlkuh Bradley [facility] PharmacyStart: 03-02-2025 End: 68-70-9449Qzwkzne encounter procedureNidia Maya [facility]ty PharmacyComment on above:SPP Inflammatory Conditions - Treatment Referral (Rodrick); Insurance Authorization (Prior Auth Submission Pending)Crohn's disease of small and large intestines with complication (HCC) (Primary Dx); Disorders of fluid, electrolyte, and acid-base balance; On total parenteral nutrition (TPN); Leukocytosis, unspecified typeEncounter for other specified surgical aftercare; Postoperative pain; Diarrhea, unspecified type; Constipation, unspecified constipation typeStart: 02-26-2025 End: 81-78-2782Ikvcidkdx encounterElsy Rousseau DO Work Phone: Colorectal SurgeryComment on above:AppointmentStart: 02-22-2025 End: 76-84-2546Vgozei Coco Castaneda MD, PhD Work Phone: GastroenterologyStart: 02-15-2025 End: 64-96-5568Uyzljznqb encounterHpn Hand Profiler Work Phone: GastroenterologyComment on above:Hospital Admission (02/15/2025 - )Start: 02-15-2025 End: 06-58-5813Vcmdkyxvaa and management of inpatientELSY ROUSSEAU Facility:[facility]: 02-14-2025 End: 50-08-0664Zieppvizj to same day surgery centerNurse Pt Ed Cors Work Phone: colorectal SurgeryComment on above:Pre-Op Exam; Patient EducationCrohn's disease of small and large intestines with complication (HCC); Disorders of fluid, electrolyte, and acid-base balance; On total parenteral nutrition (TPN)Start: 02-14-2025 End: 96-75-9993Rdxodwxyc to [facility] marcosLanie Guillen MD Work Phone: [facility] HOSP MED MAINStart: 02-14-2025 End: 39-43-1787ebwiijluqxEcrn K Kaw MD Work Phone: [facility] HOSP MED MAINComment on above:Crohn's disease of small intestine with intestinal obstruction (HCC) [K50.012] (Primary Dx); 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]; Hypotension due to hypovolemia [E86.1]Start: 02-14-2025 End: 22-16-9527Clebmbasrm hospital visit by physicianGi Radio Main Qb1 (I-Stat) RadiologyComment on above:Crohn's disease of small and large intestines with complication (HCC) [K50.819]Start: 02-13-2025 End: 92-15-4853Rbjnmfpaw encounterKaylaricha Stone [facility] Work Phone: [facility] -3Start: 02-06-2025 End: 00-41-0233bhbowqkblbLMGPJhnhtajv:[facility] Rehabilitationtart: 01-31-2025 ambulatoryMANDEEPK SINGHFacility:[facility] Rehabilitationtart: 01-30-2025 End: 10-52-0762xnxiyidqwwOpm Hand Profiler Work Phone: GastroenterologyComment on above:Crohn's disease of small and large intestines with complication (HCC) (Primary Dx); Disorders of fluid, electrolyte, and acid-base balance; On total parenteral nutrition (TPN); Leukocytosis, unspecified type; Crohn's disease of small intestine with other complication (HCC)Start: 01-24-2025 End: 55-94-6398Jcajpmsc CenterLab/[place] Work Phone: Hematology/OncologyComment on above:Disorders of fluid, electrolyte, and acid-base balance; On total parenteral nutrition (TPN); Leukocytosis, unspecified typeOn total parenteral nutrition (TPN) (Primary Dx); Vitamin deficiency; Crohn's disease of small intestine with other complication (HCC)Start: 01-23-2025 End: 80-72-0972Iuzzskwfv encounterArmand Castaneda MD, PhD Work Phone: GastroenterologyStart: 01-17-2025 End: 55-21-0228Uwpmqljk CenterLab/[place] Work Phone: Hematology/OncologyComment on above:Disorders of fluid, electrolyte, and acid-base balance (Primary Dx); On total parenteral nutrition (TPN); Leukocytosis, unspecified typeStart: 01-16-2025 End: 55-23-0228Iwudwmcb CenterLab/[place] Work Phone: Hematology/OncologyComment on above:Disorders of fluid, electrolyte, and acid-base balance; On total parenteral nutrition (TPN); Leukocytosis, unspecified typeStart: 01-16-2025 End: 31-05-5859xhowticlqsZgopka [facility] Work Phone: GastroenterologyComment on above:Crohn's disease with complication, unspecified gastrointestinal tract location (HCC) (Primary Dx) Start: 01-16-2025 End: 78-28-1586Hewpyotgdfjr consultation with Amelie [facility] Work Phone: GastroenterologyStart: 01-10-2025 End: 45-36-2121Hovaakemy encounterHpn Hand Profiler Work Phone: GastroenterologyComment on above:OrdersStart: 01-09-2025 End: 39-81-0325Opwvsdnf CenterH[facility] Port/[place] [address] Work Phone: Hematology/OncologyComment on above:Disorders of fluid, electrolyte, and acid-base balance; On total parenteral nutrition (TPN); Leukocytosis, unspecified typeNutrition AssessmentOn total parenteral nutrition (TPN) (Primary Dx); Malnutrition of mild degree (HCC); Therapeutic drug monitoring; Crohn's disease with other complication, unspecified gastrointestinal tract location (HCC); Presence of ileostomy (HCC); Central venous catheter in place, permanentStart: 01-08-2025 End: 66-44-2115Qpxne [facility] Dietitian Work Phone: GastroenterologyStart: 01-02-2025 End: 88-90-6581Ikgljrfv CenterThree [facility] [address] [place] Work Phone: Hematology/OncologyComment on above:Crohn's disease of small and large intestines with complication (HCC) (Primary Dx); Disorders of fluid, electrolyte, and acid-base balance; On total parenteral nutrition (TPN); Leukocytosis, unspecified typeStart: 01-01-2025 End: 73-04-5892Lmodidepe encounterHpn Hand Profiler Work Phone: GastroenterologyComment on above:ResultsStart: 12-29-2024 End: 00-85-9984Hmrpennze encounterJaimie Carrasquillo RD Work Phone: GastroenterologyComment on above:Patient Update Disorders of fluid, electrolyte, and acid-base balance; On total parenteral nutrition (TPN); Leukocytosis, unspecified type; Selenium deficiency; Toxic effect of manganese or manganese compound, accidental or unintentional, subsequent encounter; Elevated C-reactive proteinStart: 12-29-2024 End: 67-05-1528Mvxdgag encounter procedureSbeverly Dupont PA-C Work Phone: Vascular MedicineComment on above:Acute deep vein thrombosis (DVT) of axillary vein of left upper extremity (HCC) (Primary Dx); Anticoagulation management encounter; Acute deep vein thrombosis (DVT) of brachial vein of right upper extremity (HCC) Start: 12-29-2024 End: 97-12-8815irmqtogbhiQti Port/[place] [address] [place] 1 Work Phone: Hematology/OncologyStart: 12-27-2024 End: 76-52-5444Toflqy Coco Castaneda MD, PhD Work Phone: GastroenterologyComment on above:Disorders of fluid, electrolyte, and acid-base balance (Primary Dx); Elevated C-reactive protein; Leukocytosis, unspecified type; On total parenteral nutrition (TPN); Toxic effect of manganese or manganese compound, accidental or unintentional, subsequent encounter; Selenium deficiencyStart: 12-25-2024 End: 49-83-8858Yvpurql evaluation of patient and reportStoma Therapy Work Phone: Colorectal SurgeryComment on above:Attention to ileostomy (HCC) (Primary Dx)Start: 12-25-2024 End: 29-70-6904Fcqbuxy encounter Christy Rousseau DO Work Phone: Colorectal SurgeryComment on above: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, unspecified laterality; Encounter for surgical aftercare following surgery of digestive system; 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Start: 12-25-2024 End: 68-29-7101vgipndckvxYIVWJWV MCCAUSLANDFacility:[facility] Start: 12-25-2024 End: 51-52-4041Asdbde consultation new/estab patient 40 Leanne Carpio MD Work Phone: DermatologyComment on above:Multiple benign nevi (Primary Dx); Skin exam, screening for cancer; Seborrheic keratoses; Lentigines; Chin angioma; Subcutaneous nodule; Rash and nonspecific skin eruptionStart: 12-07-2024 End: 11-81-8167Mnhcqcvfl encounterArmand Castaneda MD, PhD Work Phone: GastroenterologyComment on above:Patient Update (Rodrick)Start: 11-13-2024 End: 37-18-2871ocpvxskvhrJayrle [facility] Work Phone: GastroenterologyComment on above:Skgayla approval Start: 11-13-2024 End: 96-18-9284Z-mail encounter from Nahum Kriss [facility] Work Phone: GastroenterologyStart: 11-10-2024 End: 02-14-4286Qgulagnqk to same day surgery algodonesAnna ClickFox DO Work Phone: Colorectal SurgeryStart: 11-10-2024 End: 54-80-2400tshmtrdxmgUqdz Soham DO Work Phone: Colorectal SurgeryStart: 11-10-2024 End: 37-82-3148Zychqa-up encounterArmand Castaneda MD, PhD Work Phone: GastroenterologyStart: 11-10-2024 End: 07-13-2562Rulrjehns encounterAnna Soham DO Work Phone: Colorectal SurgeryComment on above:Returning Patient's Call; Track Fitter - OtherStart: 11-08-2024 End: 83-33-3325Pzpwou-up encounterSlatrell Monterroso [facility] Work Phone: GastroenterologyStart: 11-08-2024 End: 53-97-2410Grycginle encounterElsy Rousseau DO Work Phone: Colorectal SurgeryComment on above:Schedule Surgery Start: 11-07-2024 End: 92-49-1381Rebftksip encounterArmand Castaneda MD, PhD Work Phone: GastroenterologyComment on above:Medication Follow-up (Skyrizi)Start: 11-07-2024 End: 94-67-8074oftvjkcfjiTGOURDAJ KAUR SINGHFacility:[facility] Start: 11-07-2024 End: 61-00-1012Esevjxuhfq hospital visit by physicianLia 2 Main Qb (I-Stat) RadiologyStart: 11-07-2024 End: 68-32-0197Awfrzirzpp hospital visit by Gagandeep Correa Main A21 1 RadiologyComment on above:Crohn's disease of small and large intestines with complication (HCC) [K50.819]Start: 11-07-2024 End: 28-06-4508igsngkjssdJps Port/[place] [address] [place] 1 Work Phone: Hematology/OncologyComment on above:Crohn's disease of small and large intestines with complication (HCC)Start: 11-07-2024 End: 06-16-9580Jkhcjqj encounter Anand Patel MD Work Phone: UrologyComment on above:Feeling of incomplete bladder emptying (Primary Dx); Mixed stress and urge urinary incontinenceStart: 11-07-2024 End: 68-85-1651Qjrrrkg evaluation of patient and reportStoma Therapy Work Phone: Colorectal SurgeryComment on above:Attention to ileostomy (HCC) (Primary Dx); Fitting and adjustment of gastrointestinal appliance and deviceStart: 11-07-2024 End: 94-39-8528mkmxdoygwtPXVMSrghryzo:[facility]tart: 11-03-2024 End: 28-35-1407Yamzqigrvnps consultation with patientSlatrell Kriss [facility] Work Phone: GastroenterologyStart: 11-03-2024 End: 65-19-1870nwhielwiguBhbkgw [facility] Work Phone: GastroenterologyComment on above:Crohn's disease of small and large intestines with complication (HCC) (Primary Dx)Start: 10-28-2024 End: 29-90-6903Epddytafb department patient visitJAMES W SAUTOFacility:[facility] HospitalStart: 10-25-2024 End: 98-34-2412Gnwoaihuz encounterObdulia Tejeda PA-C Work Phone: colorectal SurgeryComment on above:Patient Update Start: 10-24-2024 End: 11-67-1985Piqosqbpq to same day surgery centerObdulia Tejeda PA-C Work Phone: colorectal SurgeryComment on above:Stoma outputStart: 10-24-2024 End: 21-28-1376T-mail encounter from caregiverObdulia Tejeda PA-C Work Phone: colorectal SurgeryStart: 10-24-2024 End: 71-21-4402Ojoumgknb encounterAlldave Carrasquillo RD Work Phone: GastroenterologyStart: 10-20-2024 End: 36-83-3604RvhipjReqenbch E Campbell PA-C Work Phone: Vascular MedicineStart: 09-28-2024 End: 25-42-1508bxaccpyquzHRVPUHNU KAUR SINGHFacility:[facility] Start: 09-28-2024 End: 89-89-1359Endzrvq encounter Bridget Castaneda MD, PhD Work Phone: GastroenterologyComment on above:Crohn's disease of small and large intestines with complication (HCC) (Primary Dx)Start: 09-28-2024 End: 56-88-3364yyibxpoiueJLKSXX BRAGA NETOFacility:[facility] Start: 09-27-2024 End: 03-33-4910khyerzyhrwDZPJGY A KENNEDYFacility:[facility]tart: 09-19-2024 End: 24-60-9585rrxxbbfyrcQDACCNET KIAHFacility:[facility] Start: 09-19-2024 End: 72-55-0350Ytagqs-up encounterObdulia Tejeda PA-C Work Phone: colorectal SurgeryStart: 09-19-2024 End: 04-22-2792Hatiptwuv encounterStoma Therapy Work Phone: [facility] hospitalectal SurgeryComment on above:Stoma ConsultStart: 09-19-2024 End: 71-44-5279xilervwofvVQHXMJL SANKOVICFacility:[facility] Start: 09-19-2024 End: 43-16-2901Zlztncw encounter procedureHpn Hand Profiler Work Phone: GastroenterologyComment on above:Feeding difficulties (Primary Dx)Ileostomy status (HCC) (Primary Dx); 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; On total parenteral nutrition (TPN); Therapeutic drug monitoring; Feeding difficultiesAcute deep vein thrombosis (DVT) of axillary vein of left upper extremity (HCC) (Primary Dx); Anticoagulation management encounter; Acute deep vein thrombosis (DVT) of brachial vein of right upper extremity (HCC) Start: 09-18-2024 End: 23-16-8684Qdadokr evaluation of patient and reportStoma Therapy Work Phone: [facility] hospitalectal SurgeryComment on above:Attention to ileostomy (HCC) (Primary Dx); Fitting and adjustment of gastrointestinal appliance and deviceStart: 09-18-2024 End: 99-83-5743nfhjxydzkcSAAAYQC MCCAUSLANDFacility:[facility] Start: 09-18-2024 End: 75-20-5244Nhsyt abstractingHpn Hand Profiler Work Phone: GastroenterologyStart: 09-18-2024 End: 19-10-5379Tkezzdr encounter Agata Tejeda PA-C Work Phone: colorectal SurgeryComment on above:Post-operative state (Primary Dx); High output ileostomy (HCC); Other urinary incontinence; Crohn's disease of both small and large intestine with abscess (HCC)Start: 09-14-2024 End: 30-83-3356fqrytlhdniPRVXBEOT DZIAKFacility:[facility] HospitalStart: 09-11-2024 End: 43-95-3916Dcqyeflyc encounterCatlinnette Diaz LISWHematologyStart: 09-08-2024 End: 06-37-7972Sugzwnqad encounterBeverlyeva Oliveiraia DO Work Phone: HematologyComment on above:Medication QuestionStart: 09-01-2024 End: 51-42-3743Jvhsxetpc department patient visitAndrew D To DO Work Phone: [facility] DepartmentStart: 08-31-2024 End: 20-72-8236Xuzdmjpmo encounterHpn Hand Profiler Work Phone: GastroenterologyComment on above:clogged lineStart: 08-29-2024 End: 66-67-0055Zrrnnv Mark Dupont PA-C Work Phone: Vascular MedicineComment on above:Acute deep vein thrombosis (DVT) of axillary vein of right upper extremity (HCC) (Primary Dx); Acute deep vein thrombosis (DVT) of brachial vein of right upper extremity (HCC) Feeding difficulties (Primary Dx); 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Start: 08-28-2024 End: 92-60-4102Twtuiwndjb and management of inpatientKRISTMYMICHIGAN [facility] Facility:[facility] HospitalStart: 08-21-2024 End: 95-32-2182Jomoynnfkl and management of inpatientANITA BRANDAN Facility:[facility] HospitalStart: 08-16-2024 End: 56-95-2083Tcxaxoxae encounterArmand Castaneda MD, PhD Work Phone: GastroenterologyComment on above:Patient UpdateStart: 08-14-2024 End: 44-07-8147ylfnjbdzxkJjday A [facility] Work Phone: Start: 08-14-2024 End: 28-98-8790Krmqpexr Osei Maguire MD Work Phone: [facility] [place] Work Phone: Start: 08-08-2024 End: 19-80-8193Ryexoj OnlyRamanvickie Short DO Work Phone: GastroenterologyComment on above:Feeding difficulties (Primary Dx)Start: 08-04-2024 End: 97-95-8064Dpnfwgjia encounterArmand Castaneda MD, PhD Work Phone: GastroenterologyComment on above:OrdersStart: 21-97-9335Ljrqnjwff department patient visitMANDEEHCA FLORIDA CITRUS HOSPITALFacility:[facility]tart: 07-19-2024 End: 39-79-7603Edstgmyzue and management of inpatientDajailene Guallpa MD Work Phone: stvz 2C Ortho/Med SurgComment on above:Nausea and vomiting, unspecified vomiting type (Primary Dx); Abdominal pain, epigastric; Partial intestinal obstruction, unspecified cause (HCC); Bandemia; Abscess of intestine due to Crohn's disease (HCC)Start: 06-05-2024 End: 68-73-5077fnzzrtohkgNPIGLFairfield Medical Centertart: 06-05-2024 End: 55-73-2699Mjkqwirhap hospital visit by Errol Maguire MD Work Phone: STCZ ENDOComment on above:Crohn's disease of small intestine with complication (HCC) (Primary Dx); Crohn's disease of small and large intestines with complication (HCC)Start: 05-22-2024 End: 92-65-9909evyuulvnpwNRKFGAdena Regional Medical Centertart: 05-22-2024 End: 28-07-3623Iuhtaqvoek hospital visit by physicianShe[facility] 5STCZ Pre-Admit TestingStart: 05-01-2024 End: 47-03-2013Hctrjzzljq and management of inpatientRanrobert Mensah King ALBIN Work Phone: stvz MED SURGComment on above:Generalized abdominal pain (Primary Dx); Crohn's disease of colon with abscess (HCC); Intra-abdominal abscess (HCC); Crohn's disease of colon with rectal bleeding (HCC); Crohn's colitis, other complication (HCC)Start: 04-22-2024 End: 06-12-4261Aglika outpatient visit 15 minutesTaylia Rohini [place] [facility]ERNORTHAM[facility] Work Phone: [facility] CareComment on above:Acute cough (Primary Dx); Upper respiratory tract infection, unspecified typeStart: 04-22-2024 End: 32-88-0296shqjderkfnQOJPMBSaint Francis Medical Center Ambulatory PPGStart: 01-25-2024 End: 62-74-4735Pxtcmlffhg and management of inpatientGerman Hospitaltart: 01-19-2024 End: 29-62-0230Ojblefp encounter procedureDO Dalia Apple Work Phone: [facility] [place] Work Phone: Start: 01-19-2024 End: 32-35-4210iodrddtimsYC Dalia Apple Work Phone: [facility] Work Phone: Start: 12-27-2023 End: 76-79-9095Svckzxtgb department patient visitNO PCP NO PCPBlanchard Valley Health System [facility] Hospitaltart: 55-32-9500Cdc-patient / Non-visitDO Dalia Apple Work Phone: [facility] Shari Work Phone: Start: 11-22-2023 End: 79-43-5224Zkvhknksu department patient visitSteblair Galindo DO Work Phone: [facility] EDComment on above:Crohn's disease with complication, unspecified gastrointestinal tract location (HCC) (Primary Dx)Start: 08-18-2023 End: 87-99-3451ggxdusmildTO PCP NO PCPProMedica Hospital Ambulatory PPGStart: 08-18-2023 End: 97-70-8872Bhnmgw outpatient visit 15 minutesMarixa Barrientos [employer]-DIRECTOR OF RESEARCH AND DEVELOPMENT Work Phone: [facility] OregonComment on above:Infected cyst of skin (Primary Dx)Start: 54-97-0661Cnivro outpatient visit [address] Joseph HospitalyStart: 05-26-2023 End: 23-90-1189uprxvwqfleCI Dalia Apple Work Phone: [employer] Other Start: 05-26-2023 End: 66-93-8035Ybwgiho encounter procedureDO Dalia Apple Work Phone: [facility]Lab [facility] Centertart: 05-25-2023 End: 90-29-2102lmjyigsxxwKpvxtd Apple Other [employer] Other Start: 79-12-3536Gbkuzrijl encounterGlbrandon AppleDoctors Hospital of MantecayStart: 05-13-2023 End: 83-87-9183hlfpxbhxqfAggn Asaad Other [employer] Other Start: 03-71-8367Vwtytg outpatient visit 25 minutes Imad AsaadCHLOÉ GastroenterologyStart: 05-05-2023 End: 24-83-1864Cgwdgupk ReferredDO Dalia Apple Work Phone: [facility]-Lab [place] Work Phone: Start: 05-05-2023 End: 65-71-1091lzufxrksabBP Gloria A Johns Work Phone: [facility] Work Phone: Start: 77-44-9960Pwiams outpatient visit 25 minutes Dalia AmbikaAB[facility] SanddanielsonyStart: 04-27-2023 End: 25-73-4414twnraecltoSguwwu Apple Other [employer] Other Start: 78-33-7061Jenkjnzbl encounterGloria JohnsAB[facility]ZO [facility]EN[facility] SanddanielsonyStart: 04-22-2023 End: 62-48-6395aqqoydpjlxKxmf Asaad Other [employer] Other Start: 95-54-3989Dfssomofw encounterImad AsaadABRAZO [facility] GastroenterologyStart: 04-21-2023 End: 96-52-4988acjnepuvkuXfmhld Apple Other [facility]aint [facility] [employer] Other Start: 56-46-8060Psxtvgmgm encounterGloria JohnsAB[facility]ZO [facility] SanddanielsonyStart: 04-09-2023 End: 33-76-7824fgydchyixsJicpyk Apple Other Telkonetsaint francis medical center [employer]et[employer] Other Start: 44-14-9757Txlevh outpatient visit 25 minutes Dalia AmbikaDoctors Hospital of MantecayStart: 03-31-2023 End: 26-28-4629grkrigxxyeVL Dalia A Apple Work Phone: [facility] Work Phone: Start: 03-31-2023 End: 13-55-3060Uyfwupp encounter procedureDO Daila Apple Work Phone: [facility] Ctr-CT Scan [place] Work Phone: Start: 03-09-2023 End: 81-34-1417futaxvxvvgWlvl Asaad Other [employer] Other Start: 62-20-6774Trgjkoans encounterImad AsaadFPG GastroenterologyStart: 02-24-2023(Post-Op) Post-OpJustin SarahiFPG Shari OrthopedicsStart: 02-24-2023 End: 50-70-9856fjtdgierkfUncgnz Sarahi Other [employer] Other Start: 02-23-2023 End: 20-00-9878ogkwkxtrluQcdmnaj [employer] Other [employer] Other Start: 58-69-0757Kcdbtc outpatient visit [address] [facility]: [facility]23 End: 53-29-2196Fceqxlfiz to same day surgery centerPHYSICIAN [facility] [place]: 02-16-2023 End: 85-76-8114pwwqlzlhoeWXKANPCBY [facility] Work Phone: Start: 02-01-2023 End: 94-01-1607cxozdgxvxbXkfp Asaad Other [employer] Other Start: 35-87-9455Dbfugyvqe encounterImad AsaadFPG GastroenterologyStart: 01-19-2023 End: 49-68-4984Amavcov encounter procedurePHYSICIAN [facility]-MRI [place] Work Phone: Start: 01-18-2023 End: 39-73-9167hnujfpvexwVetapg Sarahi Other [employer] Other Start: 09-55-2797Ubjnyaiss encounterJustin SarahiFPG [facility] OrthopedicsStart: 01-06-2023 End: 70-38-9426bsggzxmmtzJktn Asaad Other [employer] Other Start: 19-88-3870Wkeoxehjc encounterImad AsaadFPG Referral CoordinatorStart: 01-04-2023 End: 73-95-5433lfuqijqzlmOulonb Ambika Other [facility] V[facility] Other Start: 60-97-5851Siezudare encounterGloria JohnsABRAZO [facility] [place]Start: 12-31-2022 End: 38-09-7602Fvybsrpco to same day surgery centerPHYSICIAN NO [facility] Ctr-Digestive Health Work Phone: Start: 12-31-2022 End: 33-19-3552zcydqhoowuUPKXZBSLP NO [facility] Work Phone: Start: 12-30-2022 End: 33-76-1297cyharfrzusNAGYRXRMK NO [facility] Work Phone: Start: 12-30-2022 End: 82-76-9897Plpmddg encounter procedurePHYSICIAN NO [facility] Ctr-Lab [place] Work Phone: Start: 12-23-2022 End: 74-51-8008vawuetlbiaByrc Asaad Other [facility] Vet[facility] Other Start: 52-43-0520Kdaqun outpatient new 45 minutesImad AsaadFPG GastroenterologyStart: 05-15-1513Rkyuxzkgr encounterImad AsaadFPG GastroenterologyStart: 12-22-2022 End: 11-87-5650ehfaxcspomHkhcjy Sarahi Other [employer] Other Start: 93-79-1396Ljlregmpn encounterJustin SarahiFPG [facility] OrthopedicsStart: 46-12-4830Zkuqrx outpatient new 45 minutesJustin KelleyFPG [facility] OrthopedicsStart: 12-16-2022 End: 87-44-9977fykfnnbcdhRBBLLBZZG NO [facility] Vet[employer] Other Start: 12-16-2022 End: 26-15-9811Brmmnvp encounter procedurePHYSICIAN NO [facility] Ctr-XRay [facility] OrthoStart: 12-14-2022 End: 55-50-9340Csftmaq encounter procedurePHYSICIAN NO [facility] Ctr-Ultrasound [place] Work Phone: Start: 12-07-2022 End: 09-61-6031vhzibyqqcbPeayxh [facility] Other [place] [employer] Other Start: 07-57-5093Tomslz outpatient new 45 minutes Dalia AppleABRAZO [facility] [place]Start: 12-05-2022 End: 93-94-9623Wrofqpmec department patient visitPHYSICIAN NO [facility] Ctr-Emergency Room Work Phone: Start: 73-26-6888Wfbsndhku for preprocedural laboratory examinationDR JELLY TIMMISTralph San Juan HospitalStart: 10-06-2022 End: 80-21-4505mfetgyjxngGV JELLY TIMMISFacility:Q6Sbkzi: 10-02-2022 End: 97-14-8100sdsabwsnmxCE JELLY TIMMISFacility:C9Tmyvx: 10-02-2022 End: 78-76-9611Rpuesjrxi for preprocedural laboratory examinationDR JELLY TIMMISFacility:Z6Enksl: 09-29-2022 End: 00-14-4158mjtmconjscEQ NONE LISTED REQUESTFacility:P3Agmzd: 06-11-2022 End: 39-21-6155ffpyszzevoNrfzn SALAMFacility:[facility] DHStart: 06-11-2022 End: 81-23-2043Fhvzavv encounter procedureMaher SALAM [phone]-[facility]pmplW[facility]oster [facility] Dig[facility] Start: 57-52-0152zambmafxzkShapu SALAMFacility:Mahendra Davis DHStart: 01-10-2022 End: 05-57-3787efjpvlbuaeJKCMINT Haleigh JYOTIKOFacility:E5Vrnxt: 01-22-2021 End: 79-88-3060BnwhtsBadfhd J Gomez [facility] Physicians Gastroenterology Start: 01-16-2021 End: 47-45-3395aphasxvdstOEATXLegacy Healthtart: 11-19-2020 End: 06-55-1507tyxftrihlsOtywe [facility] Physicians Primary Care Start: 88-53-0725Ntxyrrpnxach of care [facility] Physicians Primary CareComment on above:Care Coordination (BHP)Start: 10-30-2020 ambulatoryBETH ISRAEL DEACONESS MEDICAL CENTERHaleigh [facility] PhysiciansStart: 10-30-2020 End: 74-47-1633Lrggevopqnxko procedureMubucktail medical centerlinda Smith MD Work Phone: [place] [address] Physicians Primary CareStart: 10-29-2020 End: 98-84-4678IvgfqnRiky Buchanan [facility] Physicians GastroenterologyComment on above:Crohn's disease of small intestine without complication (HCC) (Primary Dx)Start: 10-23-2020 End: 35-34-3153qmhnyjrsylFFNQCLegacy Healthtart: 74-87-5970Vossrvmqigcp of care [facility] Physicians Primary CareComment on above:Care Coordination (BHP)Start: 10-08-2020 End: 81-83-0384Qmnatpn encounter procedureEmmason GuzmanMeioHealthStart: 65-84-9948qchjitbdvrMLVINIZV MENJIVAR ALI [facility] Physicians Start: 26-39-9163Qpshayflmtwx of care [facility] Physicians Primary CareComment on above:Care Coordination (BHP)Start: 09-26-2020 End: 89-48-0585Orgpblhzcfftw procedurealexandrea Smith Work Phone: [facility] Physicians Primary CareStart: 09-26-2020 End: 28-86-8389Ewvmrcp encounter procedureEmmason GuzmanWisconsinHealthStart: 09-22-2020 End: 33-72-3323Gplgry OnlyAbdiel Smith Work Phone: [facility] Physicians Primary CareComment on above: Depression, unspecified depression typeStart: 09-20-2020 End: 66-79-1778Hzvlasggmqwqj procedureTorupert Linton Work Phone: [facility]Start: 09-17-2020 End: 72-38-5760dqfqpauiqjFCSWEPrairie Ridge Health Physicians Start: 09-17-2020 End: 42-17-4450Qeztbl outpatient visit 25 minutesCan[facility] Treatment Centers Of [facility] Work Phone: [facility] Physicians GastroenterologyComment on above:Crohn's disease of small intestine without complication (HCC) (Primary Dx) Start: 67-76-1498giqkxlstlqSKLZQYDJ MENJIVARUT [facility] PhysiciansStart: 09-03-2020 End: 10-41-8923gazumtjxoiYJMLMUPD [facility] PhysiciansStart: 09-03-2020 End: 29-11-2851Vggavr outpatient visit 15 minutesPinkylinda Smith Work Phone: [facility] [facility] Physicians Primary CareComment on above: Chronic pain of left knee (Primary Dx)Start: 12-23-8333Fxqfpupwpsfl of care plan [facility] Physicians Primary CareComment on above:Care Coordination (BHP)Start: 09-03-2020 End: 22-83-2057Sxxumlx encounter procedureEmmason GuzmanWisconsinHealthStart: 09-02-2020 End: 09-99-5924YlvqfeAguebjvk J MussCommunity HealthCare System Physicians Gastroenterology Start: 08-29-2020 End: 31-48-8465jqsnciqgcvCLNMYDelaware County Hospitaltart: 08-23-2020 End: 16-89-5302Shtrjhaftyxnn procedureTorupert Linton Work Phone: [facility]HealthStart: 64-16-1075qmrmqnqqycDPJXFNZD IBRAHIM ALI KHWyandot [facility] Hospital PhysiciansStart: 98-43-0159Zshslcfzusdf of care [facility] Physicians Primary CareComment on above:Care Coordination (BHP)Start: 08-20-2020 End: 01-83-2465Wtwndsgxdepfz procedureMualexandrea Smith Work Phone: [facility] Physicians Primary CareStart: 08-20-2020 End: 85-39-4999Hdglizb encounter procedureEmily ThomasMeioHealthStart: 30-57-1349Pzvgxdqqueqy of care [facility] Physicians Primary CareComment on above:Care Coordination (BHP)Start: 08-06-2020 End: 48-27-1057Dnzwlmb encounter procedureEmmason GuzmanMeioHealthStart: 08-02-2020 End: 80-38-0689jrkkfcjftcKJJSOLegacy Healthtart: 07-30-2020 End: 41-68-0154Ajjnkduxykkew procedureTodd Darci Linton Work Phone: [facility]HealthStart: 07-29-2020 End: 79-17-1031Yikiopiucval of care [facility] Physicians Primary CareComment on above:Care Coordination (BHP)Crohn's disease of small intestine without complication (HCC) (Primary Dx)Start: 07-29-2020 End: 64-35-7837Vdkwwrtfeizbe procedureMualexandrea Smith Work Phone: [facility] Physicians Primary CareStart: 07-29-2020 End: 36-68-3908grefyeimrfJAESTLIVAashish PARKWyandot Memorial Hospital PhysiciansStart: 07-29-2020 End: 66-58-9452Psmumbm encounter procedureEmmason GuzmanWisconsinHealthStart: 78-49-5634Wrioxmwyxwvt of care [facility] Physicians Primary CareComment on above:Care Coordination (BHP)Start: 07-24-2020 End: 31-11-3777Llerehq encounter procedureEmmason GurrolaioHealthStart: 07-18-2020 End: 47-12-4813ceidaratdfWJOPWDST IBRAHIM VERA [facility] PhysiciansStart: 07-18-2020 End: 03-00-0324Piqxed outpatient visit 15 minutesMualexandrea Patinoahim Vera Smith Work Phone: [facility] Physicians Primary CareComment on above: Depression, unspecified depression type (Primary Dx); Chronic pain of left kneeStart: 20-08-8512Hnymvaofdzbl of care [facility] Physicians Primary CareComment on above:Care Coordination (BHP) Start: 07-16-2020 End: 48-15-4225Ysxcxlj encounter procedureEmmason RuizHealthStart: 07-15-2020 End: 71-50-2268pervvndiwgVYBZRJURCleveland Clinic Hillcrest Hospitaltart: 89-12-5563Xerqwjglkvov of care [facility] Physicians Primary CareComment on above:Care Coordination (BHP)Start: 07-11-2020 End: 97-69-1804Ehuzthy encounter procedureEmmason RuizHealthStart: 65-93-2401Fbwpfkhoclij of care [facility] Physicians Primary CareComment on above:Care Coordination (BHP)Start: 07-04-2020 End: 18-47-5309Cvgwuan encounter procedureEmmason RuizHealthStart: 73-67-4355Jtwpsfmspeyn of care [facility] Physicians Primary CareComment on above:Care Coordination (BHP)Start: 06-27-2020 End: 90-66-1608Yhztzqb encounter procedureEmmason RuizHealthStart: 26-92-0025Uxnjikxkgymz of care [facility] Physicians Primary CareComment on above:Care Coordination (BHP)Start: 06-20-2020 End: 85-37-4864Hiqzxrv encounter procedureEmmason RuizHealthStart: 06-19-2020 End: 89-80-2057redengumndLIEQCMZAOhioHealth Berger Hospitaltart: 06-19-2020 End: 19-69-4297zdqvhmbklxKWDACRUC IBRAHIM ALI [facility]HW[facility] PhysiciansStart: 06-19-2020 End: 08-62-6400Thttqzavzy hospital visit by physicianAbdiel Smith Work Phone: [facility] DiagnosticsComment on above: Chronic pain of left kneeStart: 06-19-2020 End: 68-98-7877Pkhjnh outpatient new 30 minutesAbdiel Smith Work Phone: [facility] Physicians Primary CareComment on above: Depression, unspecified depression type (Primary Dx); Chronic pain of left kneeStart: 06-18-2020 End: 93-35-7761tokmezdyyiOYAYSJQVGSt. [facility] PhysiciansStart: 06-18-2020 End: 98-65-7166Taxssv outpatient visit 40 minutesCandy Cardenas Work Phone: [facility] Physicians GastroenterologyComment on above:Crohn's disease of small intestine without complication (HCC) (Primary Dx) Start: 05-30-2020 End: 66-65-0849Lypmglbehe and management of inpatientDEEPIKA BATHINIPinnacle Hospitaltart: 05-30-2020 End: 84-60-7300Auvvdzfprz and management of inpatientIlia Iliev Work Phone: [facility] Surgical 2 NorthComment on above:Crohn's disease with complication, unspecified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 57-32-6364Khawvgwdlu /13/2025 12:50 PM EDT PAT Pre Anesthesia [address] [place] [address] 3, [employer] [address] [place] [address] Pre OpPre AnesthesiaComment on above:Pre OpStart: 02-14-2025 End: 96-38-6654Voadyrr encounter procedureAdmittingComment on above:preopStart: 02-14-2025 End: 13-80-5350Qoaezcf encounter xrayebpit44/13/2025 10:40 AM EDT Appointment Radiology [address] [place] [address] Crohn's disease of small and large intestines with complication (HCC) [K50.819]RadiologyComment on above:Crohn's disease of small and large intestines with complication (HCC) [K50.819]Start: 02-13-2025 End: 99-88-2114njwrafaglq16/12/2025 2:45 PM EDT [facility]fusion Center Hematology/Oncology [address] [place] [address] [place] [address] Lab port / Reece Dressing change and lab drawHematology/OncologyComment on above:Lab port / Reece Dressing change and lab drawStart: 02-06-2025 End: 40-66-8961empwirmqpq57/05/2025 2:30 PM EDT Infusion Center Hematology/Oncology [address] [place] [address] [place] [address] Lab port / Reece Dressing Change and lab drawHematology/OncologyComment on above:Lab port / Reece Dressing Change and lab drawStart: 18-90-6736Dxdbkcuqs vaccinationFlu vaccine (#1)Miguel Christianson [facility]Start: 01-31-2025 End: 07-07-4000Qebsuev encounter yrvukrenr14/30/2025 11:00 AM EDT Office [place] [address] Surg Reg ApptFinancial Clearance Phone ScreeningComment on above:Surg Reg ApptStart: 01-30-2025 End: 89-71-7353wvtichvsxyHqddyudzpu/OncologyComment on above:SKYRIZISKYRIZI / Reece dressing and lab drawStart: 01-24-2025 End: 698658-numfffzykkiwhx D3 [Mass/volume] in Serum or PlasmaVITAMIN D 25 HYDROXY Lab Routine Crohn's disease of small intestine with other complication (HCC) Expected: 01/24/2025, Expires: 04/25/2025[facility] Work Phone: Comment on above:Expected: 01/24/2025, Expires: 04/25/2025Start: 01-24-2025 End: 72-85-6572lmfllaforw96/23/2025 10:15 AM EDT Infusion Center Hematology/Oncology [address] [place] [address] Lab port / Reece Dressing change and lab drawHematology/OncologyComment on above:Lab port / Reece Dressing change and lab drawStart: 01-23-2025 End: 76-26-0843cpfnsysism75/22/2025 2:30 PM EDT Infusion Center Hematology/Oncology [address] [place] [address] [place] [address] Lab port / Reece Dressing change and lab drawHematology/OncologyComment on above:Lab port / Reece Dressing change and lab drawStart: 01-17-2025 End: 74-39-4664laibrmfqpz42/16/2025 11:15 AM EDT Infusion Center Hematology/Oncology [address] [place] [address] [place] [address] Lab port / Reece Dressing change and lab drawHematology/OncologyComment on above:Lab port / Reece Dressing change and lab drawStart: 01-16-2025 End: 06-85-7398qifqnoibmn97/15/2025 2:30 PM EDT Infusion Center Hematology/Oncology [address] [place] [address] [place] [address] Lab port / Reece Dressing change and lab drawHematology/OncologyComment on above:Lab port / Reece Dressing change and lab drawStart: 01-16-2025 End: 52-74-8256qppgszmwjz04/15/2025 10:30 AM EDT [facility] [address] [phone] KrissGrace higgins, Formerly [facility] [address] [place] [address] Skyrizi f/u GastroenterologyComment on above:Skyrizi f/uStart: 01-09-2025 End: 83-37-8768Xysvlil encounter procedureGastroenterologyComment on above: HPN/No RD availableCGRT page [id number]: 01-09-2025 End: 64-48-7774bjhlonxzoz12/08/2025 12:30 PM EDT Education Gastroenterology [address] [address] Dietitian, Cgrt [address] [place] [phone] cgrt page [phone] Comment on above:cgrt page [phone]: 01-02-2025 End: 96-56-6639fkvoymgvqf05/01/2025 2:30 PM EDT Infusion Center Hematology/Oncology [address] [place] [address] [place] [address] SKYRIZI Hematology/OncologyComment on above:SKYRIZIStart: 12-29-2024 End: 54-08-0546Znkgqr-up eoxjmsuio31/27/2025 2:30 PM EDT Distance [facility] Vascular Medicine [address] [place] [address] Mariam Dupont PA-C [address] [place] [phone] Follow upVascular MedicineComment on above:Follow upStart: 12-29-2024 End: 89-91-9096oyljpwemyr41/27/2025 1:15 PM EDT [facility] Vascular Medicine [address] [place] [address] Mariam Dupont PA-C [address] [place] [address] DX: DVTVascular MedicineComment on above:DX: DVTStart: 12-29-2024 End: 51-42-8961Akxxblq encounter /27/2025 11:00 AM EDT Office Visit Vascular Medicine [address] [place] [address] Acute deep vein thrombosis (DVT) of axillary [...] above: Expected: 12/27/2024, Expires: 03/28/2025Start: 12-27-2024 End: 94-63-2433HEXNHRAJO BLDMANGANESE BLD Lab Routine On total parenteral nutrition (TPN) Toxic effect of manganese or manganese compound, accidental or unintentional, subsequent encounter Expected: 12/27/2024, Expires: 03/28/2025 [facility] ClinicComment on above:Expected: 12/27/2024, Expires: 03/28/2025Start: 12-27-2024 End: 29-53-9157Pbvqsoqa [Mass/volume] in BloodSELENIUM BLOOD Lab Routine On total parenteral nutrition (TPN) Selenium deficiency Expected: 12/27/2024, Expires: 03/28/2025[facility] ClinicComment on above:Expected: 12/27/2024, Expires: 03/28/2025Start: 12-25-2024 End: 07-97-6895Qixfblc evaluation of patient and qavnto1712/25/2024 3:00 PM EDT Nurse Visit Colorectal Surgery [address] [address] Therapy, Stoma [address] [place] [address] Please schedule f/u with Dr. Rousseau in 3 months with stoma nurse.Colorectal SurgeryComment on above:Please schedule f/u with Dr. Rousseau in 3 months with stoma nurse.Start: 12-25-2024 End: 13-81-8918Lqhkcgt encounter /23/2025 2:30 PM EDT Office Visit Colorectal Surgery [address] [address] Elsy Rousseau DO [address] [place] [address] Please schedule f/u with Dr. Rousseau in 3 months with stoma nurse.Colorectal SurgeryComment on above:Please schedule f/u with Dr. Rousseau in 3 months with stoma nurse.Start: 12-25-2024 End: 92-08-7846Djiaqyv encounter bdpdgauxf43/23/2025 11:15 AM EDT Office Visit Dermatology [address] [address] Fartun Carpio MD [address] [place] [address] FBSCDermatologyComment on above:FBSCStart: 12-22-2024 End: 19-40-9408sruujjmcdj14/20/2025 10:30 AM EDT [facility] Gastroenterology [address] [phone] Grace Monterroso, Formerly [facility] [address] [address] Rodrick f/u GastroenterologyComment on above:Rodrick f/uStart: 12-12-2024 End: 34-17-6232Rgrgnkw encounter procedureGastroenterologyComment on above:hpn page [phone]: 12-08-2024 End: 50-43-5099tocruxtfnw65/06/2025 11:00 AM EDT [facility] Gastroenterology [address] [phone] Grace Monterroso, RPh [address] [place] [address] Rodrick f/u GastroenterologyComment on above:Skyrizi f/uStart: 12-05-2024 End: 65-34-6631Icakgak encounter fcqaqwuew14/03/2025 2:00 PM EDT Visit (SP) Office Hematology [address] [place], [place] [phone] [place] [address] [place] [address] acute DVT on anticoagulationHematologyComment on above:acute DVT on anticoagulationStart: 11-10-2024 End: 16-35-8560WCLC AND SCREEN,30 DAYTYPE AND SCREEN,30 DAY Blood Bank Routine Crohn's disease of small and large intestines with complication (HCC) Expected: 11/10/2024, Expires: 02/09/2025[facility] ClinicComment on above:Expected: 11/10/2024, Expires: 02/09/2025Start: 11-07-2024 End: 93-85-5836Ggfgfzp encounter procedureRadiologyComment on above:CT ABD/PEL W IVCONStart: 11-07-2024 End: 87-62-3783Squxyua encounter mnptnuqpg08/06/2025 10:40 AM EDT Appointment Radiology [address] [address] DXA-AXIAL SKELETONRadiologyComment on above:DXA-AXIAL SKELETONStart: 11-07-2024 End: 19-60-9378Codlcjc encounter agvpwsrvn48/06/2025 9:30 AM EDT Office Visit Urology [address] [address] Hiram Patel MD [address] [place] [address] Other urinary incontinence [N39.498]UrologyComment on above:Other urinary incontinence [N39.498]Start: 11-07-2024 End: 27-40-3383Ugusuej evaluation of patient and miocfo7811/07/2024 8:15 AM EDT Nurse Visit Colorectal Surgery [address] [place] [phone] Therapy, Stoma [address] [facility] [place] [phone] Stoma Appt, Pt needs to be sized for new bagColorectal SurgeryComment on above: Stoma Appt, Pt needs to be sized for new bagStart: 11-03-2024 End: 62-79-4123WYRVC TB SCREENBLOOD TB SCREEN Lab Routine Crohn's disease of small and large intestines with complication (HCC) Expected: 11/03/2024, Expires: 02/02/2025[facility] RehabilitationComment on above:Expected: 11/03/2024, Expires: 02/02/2025Start: 11-03-2024 End: 31-47-8061Geqauoumy B virus core Ab [Presence] in SerumHEPATITIS B CORE ANTIBODY TOTAL Lab Routine Crohn's disease of small and large intestines with complication (HCC) Expected: 11/03/2024, Expires: 02/02/2025[facility] Comment on above:Expected: 11/03/2024, Expires: 02/02/2025Start: 11-03-2024 End: 27-11-2691Pxdezmmgu B virus surface Ab [Presence] in SerumHEPATITIS B SURFACE ANTIBODY Lab Routine Crohn's disease of small and large intestines with complication (HCC) Expected: 11/03/2024, Expires: 02/02/2025[facility] Work Phone: Comment on above:Expected: 11/03/2024, Expires: 02/02/2025Start: 11-03-2024 End: 47-22-2044Zaljgmuwz B virus surface Ag [Presence] in SerumHEPATITIS B SURFACE ANTIGEN Lab Routine Crohn's disease of small and large intestines with complication (HCC) Expected: 11/03/2024, Expires: 02/02/20[facility] Comment on above:Expected: 11/03/2024, Expires: 02/02/2025Start: 11-03-2024 End: 15-38-8225gtvfdgcrot05/02/2025 11:00 AM EDT [facility] Gastroenterology [address] [phone] KrissGrace higgins, [facility] [address] [place] [address] Medication EducationGastroenterologyComment on above:Medication EducationStart: 10-03-2024 End: 91-12-8119Mnrazav encounter ktbqujqrn62/01/2025 2:00 PM EDT Office Visit Urology [address] [address] Cecil Velazquez MD [address] [place] [phone] N39.498 (ICD-10-CM) - Other urinary incontinenceUrologyComment on above:N39.498 (ICD-10-CM) - Other urinary incontinenceStart: 09-28-2024 End: 47-29-5053Ajedjax encounter ajklmiiku13/27/2025 3:30 PM EDT Office Visit Gastroenterology [address] [place] [address] Armand Baca MD, PhD [address] [place] [address] Follow up post opGastroenterologyComment on above:Follow up post opStart: 09-28-2024 End: 565373-pvcdrcvavhplza D3 [Mass/volume] in Serum or PlasmaVITAMIN D 25 HYDROXY Lab Routine Crohn's disease of small and large intestines with complication (HCC) Expected: 09/28/2024, Expires: 12/28/2024[facility] Comment on above:Expected: 09/28/2024, Expires: 12/28/2024Start: 09-28-2024 End: 59-33-7780FAD W Auto Differential panel - BloodCOMPLETE BLOOD COUNT AND DIFFERENTIAL Lab Routine Crohn's disease of small and large intestines with complication (HCC) Expected: 09/28/2024, Expires: 12/28/2024[facility] Comment on above:Expected: 09/28/2024, Expires: 12/28/2024Start: 09-28-2024 End: 25-01-7346Luvwcqprt (Vitamin B12) [Mass/volume] in Serum or PlasmaVITAMIN B12 Lab Routine Crohn's disease of small and large intestines with complication (HCC) Expected: 09/28/2024, Expires: 12/28/2024[facility] ClinicComment on above: Expected: 09/28/2024, Expires: 12/28/2024Start: 09-28-2024 End: [id number] metabolic 2000 panel - Serum or PlasmaCOMPREHENSIVE METABOLIC PANEL Lab Routine Crohn's disease of small and large intestines with complication (HCC) Expected: 09/28/2024, Expires: 12/28/2024[facility] Comment on above:Expected: 09/28/2024, Expires: 12/28/2024Start: 09-28-2024 End: [id number] PHENOTYPE/ENZYME ACTIVITYTPMT PHENOTYPE/ENZYME ACTIVITY Lab Routine Crohn's disease of small and large intestines with complication (HCC) Expected: 09/28/2024, Expires: 12/28/2024leveland ClinicComment on above: Expected: 09/28/2024, Expires: 12/28/2024Start: 09-19-2024 End: 86-47-2733Aftkopg encounter procedureVascular MedicineComment on above: Acute deep vein thrombosis (DVT) of axillary vein of right upper extremityRUE DVThpn page 22538/hospital dischargeStart: 09-18-2024 End: 20-23-4669Favnbir evaluation of patient and ymsgtx4309/18/2024 3:00 PM EDT Nurse Visit Colorectal Surgery [address] [address] Therapy, Stoma [address] [place] [address] Please schedule f/u appt with Dr. Lawson and stoma nurse in [address]. [address] Lawson is unavailable, please schedule with Obdulia Tejeda PA-C and stoma. Colorectal SurgeryComment on above:Please schedule f/u appt with Dr. Lawson and stoma nurse in [address] Lawson is unavailable, please schedule with Obdulia Tejeda PA-C and stoma.Start: 09-18-2024 End: 30-35-5358Clzpxwa encounter idtorvemw98/17/2025 2:00 PM EDT Office Visit Colorectal Surgery [address] [address] Obdulia Tejeda PA-C [address] [place], [place] [id number] Please schedule f/u appt with Dr. Lawson and stoma nurse in [address]. [address] Lawson is unavailable, please schedule with Obdulia Tejeda PA-C and stomlizzeth.Colorectal SurgeryComment on above:Please schedule f/u appt with Dr. Lawson and stoma nurse in [address] Lawson is unavailable, please schedule with Obdulia Tejeda PA-C and stomlizzeth.Start: 09-18-2024 End: 60-70-9607Uqvevsppzm complete panel - UrineURINALYSIS (WITH MICROSCOPIC) WITH CULTURE IF INDICATED Lab Routine Other urinary incontinence Expected: 09/18/2024, Expires: 12/18/2024[facility] Work Phone: comment on above:Expected: 09/18/2024, Expires: 12/18/2024Start: 09-18-2024 End: 83-74-0860YA Upper extremity veins - bilateralUS ARM VEIN DVT [facility] Vascular Lab Routine Acute deep vein thrombosis (DVT) of axillary vein of right upper extremity (HCC) Acute deep vein thrombosis (DVT) of brachial vein of right upper extremity (HCC) Expected: 09/18/2024 (Approximate), Expires: 08/29/2025 [facility] Work Phone: Comment on above:Expected: 09/18/2024 (Approximate), Expires: 08/29/2025Start: 09-14-2024 End: 72-89-2748Cglkyodmb to same day surgery woguyd7909/14/2024 9:00 AM EDT - 09/14/2024 10:00 AM EDT Surgery [facility] Radiology Procedure [address] [place] [address] Ghassan Angulo, BACKUP SAWYER.DIRECTOR OF RESEARCH AND DEVELOPMENT [address] [place] [address] LINE/PORT OR WOUND CHECKAmerican Fork Hospital Radiology ProcedureComment on above:LINE/PORT OR WOUND CHECK Start: 09-14-2024 End: 33-56-2048Vtmzoz outpatient visit 5 minutesLINE/PORT OR WOUND CHECK On total parenteral nutrition 09/14/2024 9:00 AM EDTAV IRStart: 09-14-2024 Subsequent hospital visit by yojsdkzbf13/13/2025 9:00 AM EDT Hospital Encounter [facility] Radiology Procedure [address] [place] [address] Ghassan Angulo, BACKUP SAWYER.DIRECTOR OF RESEARCH AND DEVELOPMENT [address] [place] [address] On total parenteral nutrition [Z78.9][facility] Radiology ProcedureComment on above:On total parenteral nutrition [Z78.9]Start: 09-05-2024 End: 34-60-2542Vnxahsz encounter procedureGastroenterologyComment on above:hpn page 68505/discharge clinicStart: 08-29-2024 End: 02-38-8680Jcuezky encounter procedureGastroenterologyComment on above:hpn page 22576ivu page 71938/discharge clinicStart: 08-25-2024 End: 60-64-3657HA Abdomen and Pelvis W contrast IVCT ABDOMEN PELVIS W IV CONTRAST Additional Contrast? None Imaging Routine Bandemia Abscess of intestine due to Crohn's disease (HCC) Expected: 08/25/2024, Expires: 07/29/2025[facility] HospitalComment on above:Expected: 08/25/2024, Expires: 07/29/2025 Start: 08-22-2024 End: 88-08-0452Sputagi encounter procedureRadiologyComment on above:Crohn's disease of both small and large intestine with abscess (HCC) [K50.814] CT ENTEROGRAPHY W IVCONcrohn's diseaseStart: 08-15-2024 End: 29-35-7214Nmxpsna encounter glfopiisu34/11/2025 2:45 PM EST Office Visit [facility] Gastroenterology [address] [place] [address] Maru Maguire MD [address] [place] [address] 4 week [facility]CMVeter[facility] Comment on above:4 week RTCStart: 08-07-2024 End: 36-07-9167Ynjzmel encounter naeapihls27/03/2025 9:30 AM EST [facility] [place] [address] [place] [address] Hugh Cardona MD [address] [place] [address] Cysto-post UDS (08/03)[facility] CenterComment on above:Cysto-post UDS (08/03)Start: 08-04-2024 End: 11-03-2024 reactive protein [Mass/volume] in Serum or PlasmaC-REACTIVE PROTEIN Lab Routine Crohn's disease of both small and large intestine with abscess (HCC)Expected: 08/04/2024, Expires: 11/03/2024leveland ClinicComment on above:Expected: 08/04/2024, Expires: 11/03/2024Start: 08-04-2024 End: 92-15-7776MOV W Auto Differential panel - BloodCOMPLETE BLOOD COUNT AND DIFFERENTIAL Lab Routine Crohn's disease of both small and large intestinewith abscess (HCC) Expected: 08/04/2024, Expires: 11/03/2024leveland ClinicComment on above:Expected: 08/04/2024, Expires: 11/03/2024Start: 08-04-2024 End: 13-29-7915Dlonponzwxnbj metabolic 2000 panel - Serum or PlasmaCOMPREHENSIVE METABOLIC PANEL Lab Routine Crohn's disease of both small and large intestine with abscess (HCC) Expected: 08/04/2024, Expires: 11/03/2024[facility] Comment on above:Expected: 08/04/2024, Expires: 11/03/2024Start: 08-03-2024 End: 13-68-6845Xttsifm encounter yqxydfexu74/30/2025 11:00 AM EST [facility] [address] [place] [address] Bella Leary, BACKUP SAWYER - DIRECTOR OF RESEARCH AND DEVELOPMENT [address] [place] [address] UDMercy Health Lorain HospitalComment on above:UDSStart: 07-29-2024 End: 93-63-4534A-reactive proteinC-Reactive Protein Lab Routine Bandemia Abscess of intestine due to Crohn's disease (HCC) Expected:07/29/2024, Expires: 07/29/2025on [facility] DaytonComment on above:Expected: 07/29/2024, Expires: 07/29/2025Start: 07-29-2024 End: 13-70-9499DJJ W Auto Differential panel - BloodCBC with Auto Differential Lab Routine Bandemia Abscess of intestine due to Crohn's disease (HCC) Expected: 07/29/2024, Expires: 07/29/2025on [facility] DaytonComment on above: Expected: 07/29/2024, Expires: 07/29/2025Start: 07-29-2024 End: 76-97-9404Jcgpzvjfzt [Mass/volume] in Serum or PlasmaCreatinine Lab Routine Bandemia Abscess of intestine due to Crohn's disease (HCC) Expected: 07/29/19, Expires: 07/29/2025on [facility] DaytonComment on above:Expected: 07/29/2024, Expires: 07/29/2025Start: 06-05-2024 End: 34-28-7707R-reactive proteinC-Reactive Protein Lab Routine Crohn's disease of small intestine with complication (HCC) Expected:06/05/2024, Expires: 06/05/2025on [facility] DaytonComment on above:Expected: 06/05/2024, Expires: 06/05/2025Start: 06-05-2024 End: 81-29-2694HH Abdomen and Pelvis W contrast IVCT ABDOMEN PELVIS W IV CONTRAST Additional Contrast? Oral Imaging Routine Crohn's disease of small i ntestine with complication (HCC) Expected: 06/05/2024, Expires: 06/05/2025on [facility] DaytonComment on above:Expected: 06/05/2024, Expires: 06/05/2025 Start: 06-05-2024 End: 90-52-1213Spqdltxrq to same day surgery yldntt8606/05/2024 10:00 AM EST - 06/05/2024 10:30 AM EST Surgery [facility] [address] [place] [address] Maru Maguire MD [address] [facility] [address] [place] [address] COLONOSCOPY DIAGNOSTICSTCZ ENDOComment on above:COLONOSCOPY DIAGNOSTICStart: 42-29-8312Evazozyzby hospital visit by gzelfufjf59/02/2024 10:00 AM EST Hospital Encounter [facility] [address] [place] [address] Maur Maguire MD [address] [facility] [address] [facility] [address] [place] [address] [facility] ENDOStart: 06-05-2024 End: 57-52-3673Cenpfqgrfjt flx dx w/collj spec [facility]Start: 05-22-2024 End: 92-59-3535Azfiywx encounter nhkndvdaw74/18/2024 1:15 PM EST Appointment [facility] Pre-Admit Testing [address] [place] [address] OR 04/05 [facility] Pre-Admit TestingComment on above:OR tart: 54-00-4222Tflujhkzen MonitoringDepression MonitoringBon [facility] DaytonStart: 04-03-2024 Depression ScreenDepression ScreenBON MARIETTA OSTEOPATHIC CLINICStart: 03-05-2024 COVID-19 Vaccine ( season)COVID-19 Vaccine ( season)[facility] HospitalStart: 49-05-7625Pnget-19 Vaccine ()Covid- 19 Vaccine ()[facility]art: 45-57-7240Moxacnsfo vaccinationFairfield Medical Centertart: 02-72-2142Cbzrdiffz vaccinationBON MARIETTA OSTEOPATHIC CLINICStart: 30-06-1513Qrclldma identified in Urine by CultureOhioHealth Hardin Memorial Hospitaltart: 50-62-3132Gadfgbtgj vaccinationInfluenza Vaccine Critical access hospitaltart: 02-16-2023 End: 73-61-5799FqqloxzhsOhioHealth Hardin Memorial Hospitaltart: 43-99-8608KuwureeasOhioHealth Hardin Memorial Hospitaltart: 84-80-2240Drtjp BMI ScreeningAdult BMI Screening Critical access hospitaltart: 52-36-4772Lkryrlkkpyiy 0-64 years Vaccine (2 of 2 - PCV)Pneumococcal 0-64 years Vaccine (2 of 2 - PCV)[facility] Start: 91-61-6503Dohcxlfnma Remission Assessment (PHQ9)Depression Remission Assessment (PHQ9)[facility]Start: 03-18-2021 End: 75-95-2276Oajaeyg encounter ldepainma76/14/2021 Office Visit Gastroenterology Candy Cardenas MD [address] [facility] [place] [address] [facility] GastroenterologyStart: 00-74-7092Svlervhzy vaccinationSequential Influenza Vaccine (#1)[facility]HealthStart: 01-17-2021 End: 36-98-3583Pcbpss Visit01/17/2021 Office Visit GastroenterCandy Capone MD [facility] [facility] [place] [address] [phone] [facility] GastroenterologyStart: 10-16-2020 End: 21-19-8031Kjnetd Visit10/16/2020 Office Visit Primary Care Abdiel Smith MD [employer] [facility] [place] [address] [phone] [facility] Primary CareStart: 09-23-2020 End: 96-48-9561Xypirh Visit09/23/2020 Office Visit Orthopedic Surgery Jose Luis Ribeiro DO [address] [place] [address] [phone] [facility] OrthopedicsStart: 09-18-2020 End: 33-96-7122XHD [Mass/Vol]CRP, Inflammation Lab Routine Crohn's disease of small intestine without complication (HCC) Expected: 09/18/2020, Expires: 2OhioHealthComment on above:Expected: 09/18/2020, Expires: 09/18/2021 Start: 09-18-2020 End: 33-41-7875CAL (Bld) [Velocity]Sedimentation Rate Lab Routine Crohn's disease of small intestine without complication (HCC) Expected: 09/18/2020, Expires: 2OhioHealthComment on above:Expected: 09/18/2020, Expires: 09/18/2021tart: 09-17-2020 End: 88-46-8632Pccsys Visit09/17/2020 Office Visit Gastroenterology Candy Cardenas MD [address] [place] [address] [phone] [facility] GastroenterologyStart: 09-16-2020 End: 39-13-1967Owfaueb Ihqatxdk53/15/2021 Patient Outreach Primary CareOhiohealth Doctors Hospital Physicians Primary CareStart: 09-03-2020 End: 21-87-7244Khhyya Visit09/03/2020 Office Visit Primary Care Abdiel Smith MD [address] [facility] [place] [address] [facility] Primary CareStart: 07-29-2020 End: 57-37-2817Cccmtvp Rrayfurg48/25/2021 Patient Outreach Primary CareOhiohealth [facility] Hospital Physicians Primary CareStart: 07-18-2020 End: 34-37-4462Jeiffk Visit07/18/2020 Office Visit Primary Care Abdiel Smith MD [employer] [facility] [place] [address] [facility] Primary CareStart: 06-19-2020 End: 80-76-4087Kzgnka Visit06/19/2020 Office Visit Primary Care Abdiel Smith MD [address] [facility] [place] [address] [phone] [facility] Primary CareStart: 81-80-8440Jzhhhpuia vaccinationSEQUENTIAL INFLUENZA VACCINE (#1)[facility]HealthStart: 17-16-8301Foqlpmopm vaccination givenSEQUENTIAL INFLUENZA VACCINE (#1)[facility] HospitalStart: 09-12-2017 Screening for malignant neoplasm of cervixInova [facility]fax Hospitalart: 64-51-7785Xyayysnwj for malignant neoplasm of cervixPap SmearProMedica [facility] SystemStart: 41-80-4730TPcM,Tdap and Td Vaccines (2 - Td or Tdap)DTaP,Tdap and Td Vaccines (2 - Td or Tdap)[facility] SystemStart: 67-68-4131NViP/Tdap/Td vaccine (2 - Td or Tdap)DTaP/Tdap/Td vaccine (2 - Td or Tdap)[facility]ITALStart: 36-64-1736Vwxjtni vaccinationTetanus: Every 10yrsOhioHealthStart: 85-54-6969Rymjw microalbumin profileDTaP,Tdap,Td Vaccine (2 - Td or Tdap) [facility]: 15-60-5870JWI Vaccine (1 - 3-dose SCDM series)HPV Vaccine (1 - 3-dose SCDM series)[facility]: 19-30-6969Ruurupmoy for malignant neoplasm of cervixInova Fairfax Hospitalart: 38-57-0381Tzwnfepam B vaccine (1 of 3 - 19+ 3-dose series)Hepatitis B vaccine (1 of 3 - 19+ 3-dose series)[facility]: 77-27-4416Fqqqroe ScreeningAnxiety ScreeningFairfield Medical Centertart: 17-60-3239Hkmwosplfo ScreeningDepression ScreeningFairfield Medical Centertart: 90-50-0805Hxzghopgg C antibody, confirmatory testHepatitis C ScreeningOhioHealthStart: 40-97-2872Yaarvuiza C screeningBON [facility] Centerart: 62-45-2819PWD screeningHIV ScreeningUc [facility] Start: 01-85-1925WKTER-19 Vaccine (1 of 2)COVID-19 Vaccine (1 of 2)[facility] Start: 11-43-9809LXBDB-19 Vaccine (1)COVID-19 Vaccine (1)[facility] HospitalStart: 42-02-3022AJS screeningBON MARIETTA [facility]STEOPATH[facility] CLINICStart: 42-79-3921Nwjnnnssv vaccine (1 of 2 - 13+ 2-dose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 Instructions* Tre Bridges APRN.DIRECTOR OF RESEARCH AND DEVELOPMENT - 03/16/2025 1:27 PM EDT We discussed [...] This prescription has been sent to your [facility] pharmacy on [address] [facility], with 60 tablets and two [...] protein shakes, such as Owyn (available at [employer], [employer], or [employer]), to help meet your nutritional needs. Avoid consuming more than 25 grams of protein per serving to prevent diarrhea. - If tolerated, you may also try Malawian yogurt, kefir, or probiotic capsules to support [...] the TRE vang APRN.CNP documented in this encounterUc West Chester Hospital09-12-2025 NoteDunlap Memorial Hospital09-12-2025 History of Present illness Narrative* Tre Bridges APRN.CNP - 03/16/2025 8:43 AM EDT Images from the original note were not included. COLORECTAL SURGERY VIRTUAL VISIT FOLLOW UP/post op I have communicated my name and active licensure. The patient's identity and physical location wereverified at the time of this visit. Either the patient or their legal sales representative printing has been informed of the risks and [...] believes it may be a dietitian or price checker. She is requesting a refill of Zofran [...] Review of prior notes from OR, and [employer] messaging I have discussed Francine Hobson's treatment [...] protein shakes (e.g., OWYN <=25g protein/serving), kefir, Malawian yogurt,or probiotic capsules to support gut microbiome. [...] which included preparing to see the patient, ctho-xt-guir patient care, completing clinical documentation, obtaining and/or reviewing separately obtained history, performing a medically appropriate examination, counseling and educating the pat ient/family/caregiver, ordering medications, tests, or procedures, and communicating results to thepatient/family/caregiver. TRE BRIDGES APRN.RONEL Digestive Disease [place] Colorectal Surgery [facility] [address] [place] [address] documented in this encounterUc West Chester Hospital09-11-2025 NoteDunlap Memorial Hospital09-05-2025 Telephone encounter Note* Telephone Encounter - Grace Monterroso RPh - 03/09/2025 5:06 PM EDT Therapy plan discontinued as IV treatment is completed. [facility] Work Phone: [phone]) 828-966009-05-2025 Miscellaneous Notes* Telephone Encounter - Grace Monterroso RPh - 03/09/2025 5:06 PM EDT Therapy plan discontinued as IV treatment is completed. * Telephone Encounter - Temi Jonas - 03/09/2025 10:19 AM EDT Images from the original note were not included. ARMAND Eaton Can you please look into this template Thanks documented in this encounterUc West Chester Hospital09-05-2025 Telephone encounter Note * Telephone Encounter - Temi Jonas - 03/09/2025 10:19 AM EDT Images from the original note were not included. ARMAND Eaton Can you please look into this template Thanks [facility]09-04-2025 NoteDunlap Memorial Hospital09-04-2025 History of Present illness Narrative* Armand [...] TPN, complicated by provoked DVT in [place] ([facility]), who presents to establish care in the IBD clinic at [facility]. #1 Crohn's disease, ileocolonic, penetrating, [...] 08, 2025 2:54 PM documented in this encounterUc West Chester Hospital09-04-2025 Telephone encounter Note * Telephone Encounter - Gloria Hobbs LPN - 03/08/2025 12:21 PM EDT Images from the original note were not included. Copied from CC'd charts 03/08/25 11:24 am Armand Baca MD, PhD [facility], Grace, [facility]; Gloria Hobbs LPN Hi Grace, Thanks for [...] who stated she is in route to [facility] for an appointment with Thiago. Patient was updated of the plan and stated she will collect the supplies to collect when sheis on site. Gloria Hobbs LPN [facility]09-04-2025 Miscellaneous Notes* Telephone Encounter - Gloria Hobbs LPN - 03/08/2025 12:21 PM EDT Images from the original note were not included. Copied from CC'd charts 03/08/25 11:24 am Armand Baca MD, PhD Grace Monterroso, [facility]; Gloria Hobbs LPN Hi Grace, Thanks for [...] who stated she is in route to [facility] for an appointment with Thiago. Patient was updated of the plan and stated she will collect the supplies to collect when sheis on site. Gloria Hobbs LPN documented in this encounterUc West Chester Hospital09-03-2025 History of Present illness Narrative* Grace Monterroso, [facility] - 03/07/2025 11:00 AM EDT IBD Medication Consult Digestive Disease and Surgery [place] Patient consents to pharmacy consult agreement. Patient [...] Candidate for PCV20 One time dose of Caxdwcf19 Hepatitis A ? No results found for: [...] recurrent partial SBO and was admitted at [facility]. CT revealed lower abdominal and pelvic abscess, possible fistula versus narrowing in sigmoid colon. She had aspiration of abscess at [facility] by IR. Was admitted at [facility] 07/2024 and transferred to [facility]. Was hospitalized at [facility] from 08/17/2024 thru 08/30/2024 for [...] appropriate here. - Updated med list in [facility] BIOLOGIC/SMALL MOLECULE DOSING Induction dose of risankizumab: 01/02/25; 01/30/25; 03/02/25 Scheduled to complete infusions at: [facility] Shari Transition from induction to maintenance: 03/30/25 Specialty pharmacy: TBD Health Maintenance - Candidate for several vaccines but has concerns about needles. - Recommend the following health maintenance appts: none -- currently up to date Next PharmD visit: Future Appointments Date Time Provider Department Center 03/08/2025 2:30 PM Armand Baca MD, PhD MARIBEL [facility] 03/16/2025 8:30 AM Tre Bridges APRN.RONEL [facility] 03/30/2025 12:00 PM Grace Monterroso RPh GASTMN Main A [facility] 05/07/2025 2:30 PM Mariam Dupont PA-C PERVMN Main J [facility] 05/23/2025 3:00 PM Elsy Rousseau DO CORSMN Main A [facility] Francine Milagro endorses understanding to above. Denies other questions and concerns and is aware to contact us in future if needed. Grace Monterroso, PharmD, BCACP, MS IBD Clinical Pharmacist Interventions made: medication education, medication reconciliation, lab management, and medicationmanagement Time spent (mins): 30 documented in this encounterUc West Chester Hospital09-03-2025 NoteDunlap Memorial Hospital09-02-2025 Instructions* Patient Instructions* Mariam Dupont PA-C - 03/06/2025 2:23 PM EDT Continue Lovneox 80 mg sc q day Monitor for signs of bleeding Duration of therapeutic anticoagulation is as long as the Reece port is in place. Ordered virtual visit follow up with me around 03/2025 documented in this encounterUc West Chester Hospital09-02-2025 NoteDunlap Memorial Hospital09-02-2025 History of Present illness Narrative* Mariam Dupont PA-C - 03/06/2025 1:20 PM EDT Heart, Vascular & Thoracic [place] Department of Cardiovascular Medicine VIRTUAL VIDEO VISIT [...] visit. Either the patient or their legal sales representative printing has been informed of the risks and [...] 02/14/2025) per pt 02/14/2025 documented in this encounterUc West Chester Hospital08-29-2025 Instructions* Patient Instructions* Tre Bridges APRN.DIRECTOR OF RESEARCH AND DEVELOPMENT - 03/02/2025 6:17 PM EDT We discussed [...] or tuna. Avoid raw vegetables, salads, and mdczr-km-vurjbp foods like steak. - Ensure you are [...] please reach out to our office via [employer] or by phone. Take care and continue to rest as you recover. All the best, TRE BRIDGES APRN.RONEL documented in this encounterUc West Chester Hospital08-29-2025 NoteDunlap Memorial Hospital08-29-2025 History of Present illness Narrative* Tre Bridges APRN.DIRECTOR OF RESEARCH AND DEVELOPMENT - 03/02/2025 4:29 PM EDT Images from the original note were not included. COLORECTAL SURGERY Follow-up March 02, 2025 Recording using ambient [facility] software for draft documentation of the visit was discussed with the patient/authorized sales representative printing; all questions welcomed and answered. Patient/authorized sales representative printing agreed to proceed Chief complaint: fu surgery, [...] plan: low TRE BRIDGES APRN.CNP Digestive Disease [place] Colorectal [facility] [address] [place] [address] documented in this encounterUc West Chester Hospital08-29-2025 History of Present illness Narrative* Nikki Whittaker - 03/02/2025 2:22 PM EDT [facility] received prescription(s) for Rodrick from Dr. Armand Casatneda's office. Benefits investigation was conducted, indicating that a prior authorization is required by patient's insurance plan with [employer]. Encounter will be updated once prior authorization has been submitted by [facility]. Nikki Whittaker CPhT [facility] documented in this encounterUc [facility] Hospital08-29-2025 NoteDun[facility]08-29-2025 NoteDun[facility]08-29-2025 NoteDun[facility]08-29-2025 NoteDun[facility]08-29-2025 Note [facility]08-25-2025 Telephone encounter Note* Telephone Encounter - Rosalie Deal - 02/26/2025 12:50 PM EDT Patient is unable to make 03/02 appointment for staple removal [place] Patient can be reached at [phone]. [facility]08-25-2025 Miscellaneous Notes* Telephone Encounter - Rosalie Deal - 02/26/2025 12:50 PM EDT Patient is unable to make 03/02 appointment for staple removal [place]. Patient can be reached at [phone]. documented in this encounterUc [facility] Hospital08-22-2025 NoteDunlap [facility]08-22-2025 NoteDun[facility]08-21-2025 NoteDun[facility]08-20-2025 NoteDun[facility]08-19-2025 Note [facility]08-18-2025 NoteDun[facility]08-18-2025 NoteDun[facility]08-17-2025 NoteDun[facility] 02-17-2025 NoteDun[facility]08-15-2025 NoteDun[facility]08-14-2025 NoteDun[facility]08-14-2025 NoteDun[facility]08-14-2025 NoteDun[facility]08-13-2025 Note [facility]08-13-2025 History of Present illness Narrative* Neela [...] the office or send a message via Slide with questions/issues. FOLLOW-UP PLAN: Patient instructed to call with any further issues Electronically Signed By Neela Collins RN in Department: COLORECTAL SURGERY documented in this encounterUc [facility] Hospital08-13-2025 History and physical note * Lanie Guillen [...] or younger Non-male patient STOP-Bang Score: 0 [id number] Score: Age: <65 Sex: female [id number] Score: ARISCAT Score: Age: <=50 Preoperative SpO2: [...] months Neurological: No history of TIA's, stroke, PUTTY MIXER tumor, impaired sensorium, hemiplegia, paraplegia orquadraplegia. No [...] > 1 time per night or hematuria. PHARMACY DIRECTOR: Negative for abnormal vaginal bleeding, abnormal vaginal [...] 424 QTC Calculation (Bazett) 460 Calculated P [place] 68 Calculated R [place] 53 Calculated T [place] 73 Impression NORMAL SINUS RHYTHM NORMAL ECG No results found for this or any previous visit (from the past 62140 hours). Instructions Given to Patient: Instructions located [...] Comment: Marijuana(last used 02/14/2025) per pt 02/14/2025 [facility]08-13-[facility] History and physical note* Lanie Guillen MD [...] or younger Non-male patient STOP-Bang Score: 0 [id number] Score: Age: <65 Sex: female [id number] Score: ARISCAT Score: Age: <=50 Preoperative SpO2: [...] months Neurological: No history of TIA's, stroke, PUTTY MIXER tumor, impaired sensorium, hemiplegia, paraplegia orquadraplegia. No [...] > 1 time per night or hematuria. PHARMACY DIRECTOR: Negative for abnormal vaginal bleeding, abnormal vaginal [...] 424 QTC Calculation (Bazett) 460 Calculated P [place] 68 Calculated R [place] 53 Calculated T [place] 73 Impression NORMAL SINUS RHYTHM NORMAL ECG No results found for this or any previous visit (from the past 85940 hours). Instructions Given to Patient: Instructions located [...] 02/14/2025) per pt 02/14/2025 documented in this encounterUc West [facility] Hospital08-13-2025 History of Present illness Narrative* Lauren Amaya [...] PATIENT PRESENTS WITH AN IMPLANTABLE OR ATTACHED MECHANICAL DESIGN ENGINEER FACILITIES: No RADIOLOGY DEPARTMENT: General X-ray: Exam(s) Completed: GI/ Procedure(s): Barium enema with watersoluable contrast PERIPHERAL IV DATA: Not applicable SIGNED BY: RT Pia(R) February 14, 2025 11:18 AM documented in this encounterUc West [facility] Hospital08-13-2025 NoteDunlap [facility]07-22-2025 Telephone encounter Note* Telephone Encounter - Naomi Crowder - 01/23/2025 9:16 AM EDT Called patient in regards to scheduling follow up with Dr. Hoover in 4-8 weeks, appointment ok to bevirtual per Dr. Hoover. Unable to leave voicemail due to voicemail full. Naomi Mensah Occupational Therapy Instructor [facility]07-22-2025 Miscellaneous Notes* Telephone Encounter - Naomi Crowder - 01/23/2025 9:16 AM EDT Called patient in regards to scheduling follow up with Dr. Hoover in 4-8 weeks, appointment ok to bevirtual per Dr. Hoover. Unable to leave voicemail due to voicemail full. Naomi Mensah Occupational Therapy Instructor documented in this encounterUc West Chester Hospital07-15-2025 History of Present illness Narrative* Grace Monterroso RP - 01/16/2025 10:30 AM EDT IBD Medication Consult [facility] [place] Patient consents to pharmacy consult agreement. Patient Name: Francine Milagro IBD Provider: Dr. Kiko Castaneda Reason for [...] Candidate for PCV20 One time dose of [id number] Hepatitis A ? No results found for: [...] recurrent partial SBO and was admitted at [facility]. CT revealed lower abdominal and pelvic abscess, possible fistula versus narrowing in sigmoid colon. She had aspiration of abscess at [facility] by IR. Was admitted at [facility] 07/2024 and transferred to [facility]. Was hospitalized at [facility] from 08/17/2024 thru 08/30/2024 for [...] 01/02/25. 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 Medication Management - Continue risankizumab 600 mg IV at week 4, 8, then starting week 12, 360 mg SQ every 8 weeks. Will plan to recheck LFTs with/after third induction dose. - Baseline CT abd/pel prior not completed due to blood clots; will check with Dr. Hoover if still recommended as she started treatment now. - Updated med list in [facility] BIOLOGIC/SMALL MOLECULE DOSING Induction dose of risankizumab: [...] J Bld 03/16/2025 8:30 AM Tre Bridges APRN.DIRECTOR OF RESEARCH AND DEVELOPMENT BRYAN Main - A Bld 05/21/2025 2:30 PM Elsy Rousseau, CORSMN Main - A Bld Francine Hobson endorses understanding to above. Denies other questions and concerns and is aware to contact us in future if needed. Grace Monterroso, PharmD, BCACP, MS IBD Clinical Pharmacist Interventions made: medication education, medication reconciliation, and medication management Time spent (mins): 20 Electronically signed by Grace Monterroso [facility] at 01/16/2025 12:24 PM EDT documented in this encounterUc [facility] Hospital07-15-2025 NoteDunlap Memorial Hospital07-11-2025 Telephone encounter Note* Telephone Encounter - Elsy Hunter RD - 01/12/2025 3:06 PM EDT Home Nutrition Support Service Orders signed by CRISTOBAL. Call to [facility] [phone] and spoke with WAQAS Milian CNM. Patient will be able to have dressing changes and labs done there. Media Consultant Outside Sales will reach out to patient to set [...] Discussed that since patient already going to [facility], will go there for outpatient labs and dressing changes between now and surgery. Rec: [facility] to call pt to schedule labs and dressing changes. When patient admitted for surgery mid February, will need to re-evaluate need for HHC in post op setting. Elsy Hunter, MS, RD, LD, CNSC [facility]07-11-2025 Miscellaneous Notes* Telephone Encounter - Elsy Hunter RD - 01/12/2025 3:06 PM EDT Home Nutrition Support Service Orders signed by CRISTOBAL. Call to [facility] [phone] and spoke with WAQAS Milian CNM. Patient will be able to have dressing changes and labs done there. Media Consultant Outside Sales will reach out to patient to set [...] Discussed that since patient already going to [facility], will go there for outpatient labs and dressing changes between now and surgery. Rec: [facility] to call pt to schedule labs [...] HHC situation was discussed. Patient already uses [facility] for Syrizi. She did not particularly like [facility] company, and has bowel reconnection surgery in 1 month. This week's labs were drawn while at [facility] for HPN/Dr. Mike appt. Rec: Standing orders for dressing changes pended in [facility] to CRISTOBAL pool in absence of Dr. Mike. Standing labs already in [facility]. Await signature of orders, will confirm with [facility] that they willbe able to perform dressing change weekly. Elsy Hunter MS, RD, LD, CNSC * Telephone Encounter - Cyn Adams - 01/10/2025 3:12 PM EDT FRANCINE HOBSON ([id number]) Mingo from [facility] called and stated that they received a referral way back in September for TPN lab work, Picc line, & dressing changes for this pt. They need a new order. [facility] [phone] documented in this encounterUc [facility] Hospital07-10-2025 Telephone encounter Note * Telephone Encounter - Elsy Hunter RD - 01/11/2025 11:21 AM EDT Home Nutrition Support Service Patient was seen in clinic this week and [facility] situation was discussed. Patient already uses [facility] for Syrizi. She did not particularly like [facility] company, and has bowel reconnection surgery in 1 month. This week's labs were drawn while at [facility] for HPN/Dr. Mike appt. Rec: Standing orders for dressing changes pended in [facility] to CRISTOBAL pool in absence of Dr. Mike. Standing labs already in [facility]. Await signature of orders, will confirm with infusion center that they willbe able to perform dressing change weekly. Elsy Hunter, MS, RD, LD, [facility]07-09-2025 Telephone encounter Note* Telephone Encounter - Cyn Adams - 01/10/2025 3:12 PM EDT FRANCINE HOBSON ([id number]) Mingo from [facility] called and stated that they received a referral way back in September for TPN lab work, Picc line, & dressing changes for this pt. They need a new order. [facility] [phone] [facility]07-08-2025 NoteDunlap [facility] Hospital07-08-2025 History of Present illness Narrative* Elsy Hunter RD - 01/09/2025 2:40 PM EDT [place] for gut rehabilitation and Transplant Nutrition Assessment [...] 2025 TIME: 2:40 PM documented in this encounterUc [facility] Hospital07-08-2025 History of Present illness Narrative* Berna Mike DO - 01/09/2025 1:00 PM EDT [facility] STAFF PHYSICIAN NOTE OF PERSONAL INVOLVEMENT [...] and A/P are as follows: Recording using WaveDeck software for draft documentation of the visit was discussed with the patient/authorized sales representative printing; all questions welcomed and answered. Patient/authorized sales representative printing agreed to proceed Francine Hobson is a 39 year old F with PMH significant for stricturing Crohn's disease complicated bySBO, s/p exlap, excision of previous ileocolonic anastomosis, end ileostomy with high output, DVT (on Eliquis). This is my first time seeing Ms. Hobson in clinic, however, she is known to me from [facility]inpatient admission to the [facility]. She was admitted from 07/30-08/08/24 for abdominal pain secondary to partial SBO from Crohn's disease. On 08/08, was sent home with TPN and was taking budesonide at that time. After this, patient had two more inpatient admissions to [facility] and September, respectively. Notably, on 10/28/24, patient [...] Hepatology & Nutrition [facility] [place] [facility] 01/08/25 Some aspects of note were written by MILES garcia Total time of this patient encounter today was >49 mins, including: preparation for visit, direct time with the patient, examination, orders, review of records, and documentation. * Carloshalima Elsy, RD - 01/09/2025 12:25 PM EDT [facility] ([facility]) NAME: Francine Hobson AGE: [age] year old : PHONE: [phone] (home) [phone] (cell) Referring MD: No referring provider defined for this encounter. PCP: No primary care provider on file. Initial Visit This is a 39 year old female with an underlying diagnosis of Crohn's disease since 2007 and a physiology of SBS since 08/18/24. She has been followed by HPN since 08/08/24 who referred her to [facility] for further medical management of malabsorption. Patient [...] change in insurance, she no longer has [facility]. She would like to use the [facility] forlabs/dressing changes moving forward. Today she plans to have labs drawn at [facility]. Last Intestinal Surgery: 08/18/24: XL, excision ICA, [...] by [facility] HPN, Dr. Mike. Home Care: [facility] P: [phone], F: [phone] IV Pharmacy: [facility] P: [phone], F: [phone] Output: Urine output is medium in color and is estimated to be 900-1000 mL daily. The patient empties ostomy 15, times per day, 2-3 L daily (4-5 times per night, before/during/after meal). The outputis watery. Relation to food/ fluid immediately. She denies foamy/frothy stools. Occasional greasy/oily stools. Laboratory: Lab Collected Date 12/29/2024 11/20/2024 11/13/2024 11/06/2024 10/23/2024 10/11/2024 09/27/2024 Lab Source [facility] Na (mEq) 137 137 138 141 139 [...] week, patient will have drawn today at [facility]. Trace elements due 06/2025. Add Vitamin D to next routine labs. Patient Group: [facility] + HPN Follow Up: Return to clinic in 2-[address] Mike and RT RD, 1 month after planned reconnection surgery scheduled for 02/15/25.. Signed by: Elsy Hunter MS, RD, LD, [facility] 01/09/2025 The following reflects my findings: [facility] STAFF PHYSICIAN NOTE OF PERSONAL INVOLVEMENT IN CARE I have reviewed the history obtained and documented by Elsy Hunter RD and I personally participated in the price components. I have discussed the case and management of the patient's care. The following comments revise or confirm relevant price components of the note. documented in this encounterUc [facility] Hospital07-08-2025 NoteDunlap [facility] Hospital07-08-2025 NoteDunlap [facility] Hospital07-07-2025 NoteDun[facility] Hospital07-07-2025 History of Present illness Narrative* Elsy Hunter RD - 01/08/2025 8:25 AM EDT [facility] ([facility]) Abstract moved to 7/8/[address] Mike[address] [facility] for pre and post clinic coordination of care. Elsy Hunter, MS, RD, LD, CNSC documented in this encounterUc [facility] Hospital06-30-2025 Miscellaneous Notes* Telephone Encounter - Parker Arce [...] available) Parker Arce RD documented in this encounterUc [facility] Hospital06-30-2025 Telephone encounter Note * Telephone Encounter - [...] with no RD available) Parker Arce RD [facility]06-27-2025 Note* Addendum Note - Darlene Solis RN - 12/29/2024 1:47 PM EDTAddended by: DARLENE SOLIS on: 12/29/2024 01:47 PM Modules accepted: Orders [facility]06-27-2025 Miscellaneous Notes* Addendum Note - Darlene Solis RN - 12/29/2024 1:47 PM EDTAddended by: DARLENE SOLIS on: 12/29/2024 01:47 PM Modules accepted: Orders * Telephone Encounter - Jaimie Carrasquillo RD - 12/29/2024 1:29 PM EDT Home Nutrition Support Service Received call from patient asking if she can also get dressing changed at [facility] today with lab draw. She also notes her insurance has resumed and needs referral to resume HHC with [facility].Advised pt can walk in to [facility] and ask RNs for dressing change - will also forward to NST RN to send referral Jaimie Carrasquillo RD, TA, ANA, CNSC documented in this encounterUc [facility] Hospital06-27-2025 Telephone encounter Note * Telephone Encounter - Jaimie Carrasquillo RD - 12/29/2024 1:29 PM EDT Home Nutrition Support Service Received call from patient asking if she can also get dressing changed at [facility] today with lab draw. She also notes her insurance has resumed and needs referral to resume HHC with [facility].Advised pt can walk in to [facility] and ask RNs for dressing change - will also forward to NST RN to send referral Jaimie Carrasquillo RD, TA, ANA, JOSHC [facility] Work Phone: [phone] History of Present illness Narrative* Mariam Dupont PA-C - 12/29/2024 1:15 PM EDT Images from the original note were not included. [facility] [place] Tameka Bone Department of Cardiovascular Medicine SECTION [...] history of Crohn's ileocolitis status post ileocecal [id number], recurrent partial small bowel obstruction who presented [...] the left side; left side compared to [place] [facility] 09/01/2024. RIGHT SIDE - DEEP VEINS [...] history of Crohn's ileocolitis status post ileocecal [id number], recurrent partial small bowel obstruction who presented [...] 29, 2024 2:22 PM documented in this encounterUc [facility] Hospital06-27-2025 NoteDunlap Memorial Hospital06-27-2025 Instructions* Patient Instructions* Mariam Dupont PA-C - 12/29/2024 12:48 PM EDT Continue Lovneox 1mg/kg/dose (80 mg) sc q day Monitor for signs of bleeding Duration of therapeutic anticoagulation is as long as the Reece port is in place Ordered virtual visit follow up with me around 03/2025 documented in this encounterUc [facility] Hospital06-26-2025 Telephone encounter Note * Telephone Encounter - Gloria Hobbs LPN - 12/28/2024 7:36 AM EDT Images from the original note were not included. Patients insurance is back active and the Skyrizi approved 1st infusion scheduled 01/02/25, 2nd infusion scheduled 01/30/25. Will need to get auth extended to cover dose #3. Gloria Hobbs LPN [facility]06-26-2025 Miscellaneous Notes* Telephone Encounter - Gloria Hobbs [...] steps. Gloria Hobbs LPN documented in this encounterUc West [facility] Hospital06-24-2025 Instructions* Patient Instructions* Fartun Carpio MD - [...] Laundry Treatment UV Protectant (for sale on [employer]), just with one laundry cycle with Sun Guard gives clothing sun protection for 20 future washes and does not change the way your clothes look or feel. Sun protective clothing is another great option to protect your skin from the sun. There are several brands such as Coolibar and can be found online or at stores like [employer]. Seek shade when the sun's rays are strongest, between 10 a.m. and 2 p.m. Do not use tanning beds Keep babies and young children out of direct sunlight. Children should use rash guards during outdoor activities. . www.[employer]book www.sunprecautions.com/shop The ABCDEs of Melanoma Skin cancer [...] itches, or bleeds, you should see a filenet architect. Asymmetry Border (irregularity) Color (not uniform, changes [...] to have it evaluated. documented in this encounterUc [facility] Hospital06-23-2025 NoteDunlap Memorial Hospital06-23-2025 History of Present illness Narrative* Neela Sanches, WAQAS - 12/25/2024 3:36 PM EDT ET/WOCN Nursing Consult Topic: ET/WOCN Consultation Note ET Outcome: Patient presents to outpatient clinic to see [facility] nursing and Dr. Rousseau. Modified pouching [...] WAQAS - 12/25/2024 2:47 [place] [address] Patient: Francine Hobson Patient Address: [address] [place] [address] [place] [address] Preferred Gender: female Date of : 1985 Type of Stoma: End Ileostomy Diagnosis: Crohn's K50.90 OSTOMY SUPPLY ORDER FORM Other: Active Lifestyle SureSeal Ring Medium #[id number] 30 day use - 1 Box Refills: 11 Attending Physician: Dr. Rousseau: Office [phone] For immediate authorization, please contact the physician s office. [facility] Nurse: BOBBY Kaur, CWOCN SIGNATURE: Neela Sanches RN PATIENT NAME: Francine Hobson DATE: December 25, 2024 TIME: 3:16 PM CONTACT #: [phone] documented in this encounterUc West [facility] Hospital06-23-2025 NoteDunlap Memorial Hospital06-23-2025 History of Present illness Narrative* Elsy [...] without masses or hernias. Wound is wellhealed. Bead Wire Taper present: Yes Patient Entered Questionnaires 09/28/2024 PROMIS [...] redirect to the Timeline version of the QuikCycle SmartLink. Failed to redirect to the Timeline version of the QuikC[employer] SmartLink. 09/28/2024 PROMIS [employer] Physical Health [...] - Continue Lovenox injections. - Discussed with machine silver stripper Dr. Hoover regarding timing of Skyrizi infusions and potential 2. Encounter for surgical aftercare following surgery of digestive system (Z48.815) Patient is scheduled for surgery on February 15 to reconnect the colon. Currently on TPN and has a stoma with some skin irritation. 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 - Sent consent form via Slide for patient to sign. - Consulted stoma [...] infusions. Elsy Rousseau DO documented in this encounterUc West [facility] Hospital06-23-2025 NoteDunlap Memorial Hospital06-23-2025 History of Present illness Narrative* Fartun [...] Past Histories independently gathered by the clinical donor support technician and resident physician, and the remaining scribed [...] MD December 25, 2024 documented in this encounterUc [facility] Hospital06-23-2025 NoteDunlap Memorial Hospital06-18-2025 Telephone encounter Note* Telephone Encounter - Gloria [...] is still not active. Gloria Hobbs LPN [facility]06-05-2025 Telephone encounter Note* Telephone Encounter - Gloria [...] outcome for next steps. Gloria Hobbs LPN [facility]05-28-2025 Telephone encounter Note* Telephone Encounter - Grace Monterroso RPh - 11/29/2024 10:23 AM EDT Called Francine and informed her about PA approval at [facility]. Provided number, she will call to get scheduled. Also moved our appt back 2 weeks to 12/22. [facility]05-28-2025 Miscellaneous Notes* Telephone Encounter - Grace Monterroso RPh - 11/29/2024 10:23 AM EDT Called Francine and informed her about PA approval at [facility]. Provided number, she will call to get scheduled. Also moved our appt back 2 weeks to 12/22. * Telephone Encounter - Grace Monterroso RPh - 11/17/2024 11:25 AM EDT Called and informed patient about PA approval. Would prefer to get infusion at [facility]. Updated therapy plan, confirming with PA team if new PA is needed. documented in this encounterUc West [facility] Hospital05-16-2025 Telephone encounter Note * Telephone Encounter - Grace Monterroso RPh - 11/17/2024 11:25 AM EDT Called and informed patient about PA approval. Would prefer to get infusion at [facility]. Updated therapy plan, confirming with PA team if new PA is needed. [facility]05-09-2025 Telephone encounter Note* Telephone Encounter - Amirah Han RN - 11/10/2024 9:45 AM EDT SPECIALTY CARE COORDINATION FOLLOW-UP NOTE Unable to reach Francine. Left you a voice message confirming the surgery date for 02/15 and pre op appointment date for 02/14. Will send a MyChart message. Amirah Han RN November 10, 2024 [facility] [facility] Miscellaneous Notes* Telephone Encounter - Amirah Han RN - 11/10/2024 9:45 AM EDT SPECIALTY CARE COORDINATION FOLLOW-UP NOTE Unable to reach Francine. Left you a voice message confirming the surgery date for 02/15 and pre op appointment date for 02/14. Will send a MyChart message. Amirah Han RN November 10, 2024 [facility] Telephone encounter Note * Telephone Encounter - Rosalie Deal - 11/08/2024 3:48 PM EDT Patient would like to confirm 02/15 surgery date. Patient can be reached at [phone]. [facility]05-07-[facility]25 Miscellaneous Notes* Telephone Encounter - Rosalie Deal - 11/08/2024 3:48 PM EDT Patient would like to confirm 02/15 surgery date. Patient can be reached at [phone]. documented in this encounter[facility] History of Present illness Narrative* Sonya Bautista [...] PATIENT PRESENTS WITH AN IMPLANTABLE OR ATTACHED MECHANICAL DESIGN ENGINEER FACILITIES: No RADIOLOGY DEPARTMENT: Bone Density PERIPHERAL IV DATA: Not applicable SIGNED BY: RT Ayah(Karly) November 07, 2024 11:15 AM documented in this encounterU[facility]05-06-2025 NoteDunlap [facility]05-06-2025 NoteHNO ID: [id number] Author: GALEN PETERSON MA Service: ? Author Type: Director Oracle Database Type: Progress Notes Filed: 11/07/2024 14:52 Note Text: Post Void Residual done on patient with 76 cc residual volume remaining. notified. Galen Peterson [facility]05-06-2025 History of Present illness Narrative* Galen Peterson MA - 11/07/2024 10:08 AM EDT Post Void Residual done on patient with 76 cc residual volume remaining. notified. Galen Peterson MA * Hiram Patel MD - 11/07/2024 9:36 AM EDT [facility] UROLOGY VISIT CENTER FOR FEMALE PELVIC MEDICINE AND RECONSTRUCTIVE SURGERY PATIENT HISTORY AND PHYSICAL EXAM PATIENT INFO: Francine Hobson is a 39 year old female. REFERRING M.D.: Obdulia Tejeda [address] [facility] [address] Consultation requested by Obdulia Tejeda PA-C for [...] was discussed with the patient or authorized sales representative printing. The patient or authorized sales representative printing has agreed to proceed with the sensitive [...] and Reconstructive Pelvic Surgery documented in [facility] encounter[facility] Telephone encounter Note * Telephone Encounter - [...] Arthur verbalized understanding . Gloria Hobbs LPN [facility]05-06-2025 Miscellaneous Notes* Telephone Encounter - Gloria Hobbs [...] . Gloria Hobbs LPN documented in this encounterU[facility]05-06-2025 NoteDunlap [facility]05-06-2025 NoteDunlap [facility]05-06-2025 History of Present illness Narrative* Gabriel Buckner, WAQAS - 11/07/2024 9:28 AM EDT ET/WOCN Nursing Consult Topic: ET/WOCN Consultation Note ET Outcome: Pt came to see the [facility] nurse for refitting with ConvaTec Prasad [...] multiple times per day Current pouching system: Creighton New Image 2 1/4 convex flange, 1/2 [...] 1 hour BOBBY Sage RN CWOCN The [facility] nursing pager [phone] (M-F 7a-4p, Sat, Sun, Holiday 7a-3p) * Gabriel Buckner RN - 11/07/2024 9:06 [place] [address] Patient: Francine Hobson Patient Address: [address] [place] [address] [place] [address] Preferred Gender: female Date of : 1985 Type of Stoma: End Ileostomy Diagnosis: Crohn's K50.90 OSTOMY SUPPLY ORDER FORM Pouch: ConvaTec: Natura + 1 3/4 drainable pouch # [id number] 30 day use - 2 Boxes (20 pouches) Wafer: ConvaTec: Prasad-Fit Natura Convex-It precut 1 1/4 Durahesive # [id number] 30 day use - 2 Boxes( 20 flanges) Adhesive Removers: ConvaTec Esenta Wipes #[id number] 30 day use - 1 Box Moldable Ring: Radha CeraRing Regular # 8805 30 day use - 1 Box Powder: ConvaTec Stomahesive # 62599 30 day use - 1 Bottle Skin Sealant: 3M No Sting, 30/Box # 3344 30 day use - 1 Box Misc. Accessories: ConvaTec Diamonds #[id number] 30 day use - 1 Box as needed Option for pouch: High Volume Output Pouch - ConvaTec Natura + 1 3/4 high output pouch # [id number] 30 day use - as needed. Refills: 11 Attending Physician: Dr. Rousseau: Office [phone] For immediate authorization, please contact the physician s office. [facility] Nurse: BOBBY Lyons, CWOCN Note: SIGNATURE: Gabriel Sheriff RN PATIENT NAME: Francine Hobson DATE: November 07, 2024 TIME: 9:07 AM CONTACT #: [phone] documented in this encounterU[facility]05-06-2025 NoteDunlap [facility]05-02-2025 History of Present illness Narrative* Kriss, Grace, [facility] - 11/03/2024 11:00 AM EDT IBD Medication Consult [facility] [place] Patient consents to pharmacy consult agreement. The [...] helps with injection - gets labs at [facility] but prefers [facility] if possible. Wasn't able [...] Candidate for PCV20 One time dose of [id number] Hepatitis A ? No results found for: [...] recurrent partial SBO and was admitted at [facility]. CT revealed lower abdominal and pelvic abscess, possible fistula versus narrowing in sigmoid colon. She had aspiration of abscess at [facility] by IR. Was admitted at [facility] 07/2024 and transferred to [facility]. Was hospitalized at [facility] from 08/17/2024 thru 08/30/2024 for [...] on 11/07/24. - Updated med list in [employer] [facility] - Candidate for several vaccines [...] - A Bld 12/25/2024 11:15 AM Fartun aCrpio MD DERMMN Main - A Bld 12/25/2024 [...] Time spent (mins): 35 documented in this encounterUc [facility]05-02-2025 NoteDunlap [facility] Hospital04-23-2025 Note* Addendum Note - Obdulia Tejeda PA-C - 10/25/2024 12:52 PM EDTAddended by: OBDULIA TEJEDA on: 10/25/2024 12:52 PM Modules accepted: Orders [facility]04-23-2025 Miscellaneous Notes* Addendum Note - Obdulia Tejeda [...] 0.6 mL dependingon response) To send a Equals6 message or contact the office later this [...] No answer. Unable to leave a voicemail. Click4Ride message sent yesterday to check in. Obdulia Tejeda PA-C documented in this encounterU[facility]04-23-2025 Telephone encounter Note * Telephone Encounter - [...] 0.6 mL dependingon response) To send a Tychet message or contact the office later this week or early next week to check on bowel regimen with output. Advised that Dr. Rousseau wants her stoma for at least 6 months prior to surgery. Appointment with Dr. Rousseau in December, can be sooner if needed. Obdulia Tejeda PA-C [facility]04-23-2025 Telephone encounter Note* Telephone Encounter - Obdulia Tejeda PA-C - 10/25/2024 10:02 AM EDT Attempted to call patient to check on stoma output and bowel regimen. No answer. Unable to leave a voicemail. Doochoot message sent yesterday to check in. Obdulia Tejeda PA-C [facility]04-22-2025 Telephone encounter Note* Telephone Encounter - Jaimie [...] in PN. She feels to tired to hookman to PRN IVF throughout the day. We [...] schedule Jaimie Carrasquillo RD, LD, MFN, CNSC [facility] Work Phone: 1(665) 668-699804-22-2025 Miscellaneous Notes* Telephone Encounter - Jaimie Carrasquillo [...] in PN. She feels to tired to hookman to PRN IVF throughout the day. We [...] exposed Rec: -will add above update to [facility] and forward to Dr Mike, NST RNs and [facility] as updates -defer line concerns to NST RNs to address -update to [facility] re: output. -will await pt call back with plan to review ORS and increase in PN volume/kcal. -pt needs f/u appt scheduled - forwarded update to clerical team to schedule Jaimie Carrasquillo RD, LD, MFN, CNSC documented in this encounterUc [facility]04-18-2025 Telephone encounter Note * Telephone Encounter - Nathanael Patel RN - 10/20/2024 6:03 PM EDT [facility] nursing returned patient message regarding needing to order supplies. Left Message: No, spoke with pt Information/Recommendations provided regarding patient tried new system and wants to order more butwas informed to get correct fit she will have to visit the outpatient clinic. Time spent: 15 minutes Nathanael Patel RN [facility]04-18-2025 Miscellaneous Notes* Telephone Encounter - Nathanael Samuel RN - 10/20/2024 6:03 PM EDT [facility] nursing returned patient message regarding needing [...] how to order more supplies. Call back [phone] documented in this encounterUc [facility] Hospital04-18-2025 Telephone encounter Note * Telephone Encounter - Yazmin Jack RN - 10/20/2024 5:20 PM EDT Pt would like some help on how to order more supplies. Call back [phone] [facility]03-27-2025 Instructions* Patient Instructions* Aracely Lentz PA-C - [...] to move forward with documented in this encounterUc [facility] Hospital03-27-2025 NoteDunlap Memorial Hospital03-27-2025 History of Present illness Narrative* Armand [...] recurrent partial SBO and was admitted at [facility]. CT revealed lower abdominal and pelvic abscess, possible fistula versus narrowing in sigmoid colon. Her CT on 05/02/24 was concerning for multiloculated abdominal/pelvic abscesses. She had aspiration of abscess at [facility] by IR. Was admitted at [facility] 07/2024 for 20 days and [...] [facility] abdominal and pelvic abscess, possible fistula versus narrowing in sigmoid colon. She had aspiration of abscess at [facility] by IR. Was admitted at [facility] 07/2024 and t ransferred to [facility]. Was hospitalized at [facility] from 08/17/2024 thru 08/30/2024 for [...] to move forward with Aracely Lentz PA-C [facility] STAFF PHYSICIAN NOTE OF PERSONAL INVOLVEMENT IN CARE I have reviewed the consult note obtained and documented by the physician assistant county engineer and I personally participated in the price [...] establish care in the IBD clinic at [facility]. #1 Crohn's disease, ileocolonic, penetrating, [...] which included preparing to see the patient, [id number] patient care, completing clinical documentation, obtaining and/or reviewing separately obtained history, performing a medically appropriate examination, counseling and educating the pat ient/family/caregiver, and ordering medications, tests, or procedures. Armand Castaneda MD, PhD September 28, 2024 3:46 PM documented in this encounterUc [facility]03-18-2025 Instructions* Patient Instructions* Mariam Dupont PA-C - [...] up in one month documented in this encounterUc [facility] Hospital03-18-2025 History of Present illness Narrative* Mariam Dupont PA-C - 09/19/2024 2:30 PM EDT Images from the original note were not included. [facility] [place] Tameka Bone Department of Cardiovascular Medicine SECTION [...] history of Crohn's ileocolitis status post ileocecal [id number], recurrent partial small bowel obstruction who presented [...] Vein DVT [facility] 08/28/2024: IMPRESSION Namoi Cortes PA-C was notified with results at [...] history of Crohn's ileocolitis status post ileocecal [id number], recurrent partial small bowel obstruction who presented [...] the left side; left side compared to [facility] 09/01/2024. plan: Continue Lovneox 1mg/kg/dose (50 [...] 19, 2024 4:12 PM documented in this encounterUc [facility] Hospital03-18-2025 NoteDunlap [facility] Hospital03-18-2025 NoteDunlap Memorial Hospital03-18-2025 History of Present illness Narrative* Darlene Solis RN - 09/19/2024 1:[address] and INSULATION BLOWER visit, met with pt and her to [...] Christie RD - 09/19/2024 9:00 AM EDT [facility] STAFF PHYSICIAN NOTE OF PERSONAL INVOLVEMENT [...] for follow upafter recent inpatient hospitalization at [facility] from 08/17/2024 thru 08/30/2024 for [...] (2005) c/b abscesses and SBO. Presented to [facility] on 09/02/2024 for left DL PICC [...] / IVF Physician Name/Phone/Fax: Dr. Berna Mike, [facility] Home Nutrition Support Service P: [phone], F: [phone] Infusion Pharmacy Name/Phone/Fax: [facility] P: [phone], F: [phone] Home Health Care Name/Phone/Fax:[facility] P: [phone], F: [phone] Treatment Plan: Indications: Short Bowel Syndrome Length [...] NAME: Francine Hobson DATE: August 30, 2024MRN: [id number] TIME: 12:12 PM Weight 09/03/2024 110 lb 10.7 oz 09/01/2024 105 lb 08/28/2024 106 lb 4.2 oz 08/27/2024 117 lb 1 oz 08/26/2024 117 lb 1 oz 08/23/2024 116 lb 13.5 oz 08/23/2024 Today patient presents to the outpatient NST discharge clinic for follow up with her . Since discharge had issues with PICC line as noted above and admitted to [facility] where Reece placed. Patient is tolerating [...] active. It dissipated in a few minutes. [place] she may be doing too much. Denies [...] for follow up after recent hospitalization at [facility] from 08/17/2024 thru 08/30/2024 for crohn's colitis in the setting of intestinal obstruction. On 08/18/24: Exploratory laparotomy, excision of previous ileocolic anastomosis, and end ileostomy. Post op with ABEL and bowel stoppers added. On 09/02/2024 had issues with flushing PICC and presented to [facility] and admitted with left DVT. Heparin [...] month with Dr. Mike, order placed. Our planner/scheduler will call you -We are increasing your daily volume from 3.5=> 3.8 liters -We are increasing your calories by ~ 200 -Please record all I and O's -Let the team know if you need extra shelf stable fluid more than 3 times a week, 2. Attention Central line care -Dressing change once a week by [facility] -Monitor for signs or symptoms of [...] malfunction: YES, NST RN saw patient after RD/INSULATION BLOWER visit Nutrition Focused Physical Exam: Refer to [...] of records, and documentation. documented in this encounterUc [facility] Hospital03-18-2025 NoteDunlap Memorial Hospital03-18-2025 History of Present illness Narrative* Abdirahman [...] Total Increments: [address], LD, [facility] documented in this encounterUc [facility] Hospital03-18-2025 Telephone encounter Note * Telephone Encounter - Angelina Feldman RN - 09/19/2024 11:46 AM EDT [facility] nursing returned patient message regarding supplies. Left Message: No Information/Recommendations provided regarding - spoke with spouse who requested larger pouches andextension tubing due to high output at night. Patient currently on campus for procedure. Supplies set aside to be picked - [facility] 1 07/08 convex-it, drainable and high volume pouches, gravity drainage bag. After call customs entry writer was notified by a colleague that she had already provided supplies to spouse. Unclear if the return call above was before or after. If he returns to desk will assess needs. Time spent: 15 minutes Angelina Feldman RN, BSN, CWOCN For non-emergent WOC Nursing patient care needs - Please place a consult via Epic under ostomy . WOC Nurse Available Hours: M-F: [phone]; Weekends & Holidays: [phone] For emergent WOC Nursing patient care needs - Page #[phone], during available hours only. [facility]03-18-2025 Miscellaneous Notes* Telephone Encounter - Angelina Feldman [...] volume pouches, gravity drainage bag. After call customs entry writer was notified by a colleague that she had already provided supplies to spouse. Unclear if the return call above was before or after. If he returns to desk will assess needs. Time spent: 15 minutes Angelina Feldman RN, BSN, CWOCN For non-emergent WOC Nursing patient care needs - Please place a consult via Epic under ostomy . WOC Nurse Available Hours: M-F: [phone]; Weekends & Holidays: [phone] For emergent WOC Nursing patient care needs - Page #[phone], during available hours only. documented in this encounterUc [facility] Hospital03-18-2025 NoteDunlap Memorial Hospital03-17-2025 NoteDunlap [facility] Hospital03-17-2025 History of Present illness Narrative* Angelina [...] flange, drainable and HVOP option for pouch, Creighton 2 1/4 convex flange, and the ConvaTec [...] gatorade, propel Pouching System Pouching system removed: Creighton New Image 2 1/4 Flat Ceraplus Flange with Tape Border #[id number], ceraplus ring, HVOP Wearing time: 3-4 days Pouching system evaluation: aperture too large, convexity needed to stabilize soft tissue Recommendations: Skin Care: Apply ConvaTec Stomahesive powder to any areas of skin breakdown PRN until healed. Dust off excess. Applied and sealed with Bionovo no sting Pouching system Applied: Hollihesive wedge from 3-9 o'clock, 1 1/4 ConvaTec PRASAD-FIT Natura Durahesive Pre-cut Skin Barrier with CONVEX-IT (#[id number]), ceraplus ring, drainable pouch, belt Expected wearing time: 3-4 days Time Increment: 1 hour Angelina Feldman, RN, BSN, CWOCN For non-emergent WO Nursing patient care needs - Please place a consult via Epic under ostomy . WOC Nurse Available Hours: M-F: [phone]; Weekends & Holidays: [phone] For emergent WO Nursing patient care needs - Page #[phone], during available hours only. documented in this encounterUc [facility] Hospital03-17-2025 NoteHNO ID: [id number] Author: ABDIRAHMAN CHRISTIE RD Service: ? Author Type: Registered Dietitian Type: Progress Notes Filed: 09/20/2024 15:43 Note Text: Abstract moved to office visit with Chantel Cottrell CNP dated 09/19/24. Abdirahman Christie RD, TA, CNSReg[facility]03-17-2025 History of Present illness Narrative* Abdirahman Christie RD - 09/18/2024 4:24 PM EDT Abstract moved to office visit with Chantel Cottrell CNP dated 09/19/24. Abdirahman Christie RD, TA, [facility] documented in this encounterUc [facility] Hospital03-17-2025 History of Present illness Narrative* Obdulia Tejeda [...] stoma: red, budded, peristomal irritation Anorectal: deferred Bead Wire Taper present: Yes Sensitive Exam: no Assessment Assessment: [...] Urinary: discussed with Dr. Rousseau, consult to uro/optometrist president/practice owner placed Plan: - TPN per CGRT team - Lomotil and Imodium 2 pills QID - add cholestyramine BID with meals - could consider tincture of Opium - consult uro/optometrist president/practice owner for urinary leakage ( per Dr. Rousseau) - UA to rule out UTI - follow up with vascular medicine and hematology as scheduled - follow up with GI - follow up with Dr. Rousseau as scheduled - contact with questions/concerns Obdulia Tejeda PA-C [facility] documented in this encounterUc [facility] Hospital03-17-2025 NoteDunlap Memorial Hospital03-13-2025 NoteHNO ID: [id number] Author: GHASSAN ANGULO APRN.DIRECTOR OF RESEARCH AND DEVELOPMENT Service: ? Author Type: Nurse Practitioner Type: Progress Notes Filed: 09/14/2024 15:45 Note Text: [facility] Interventional Radiology HPI: Francine Hobson is a 39 year old female with a PMH of Crohn's colitis with intestinal obstruction s/p end ileostomy and malnutrition with history of right-sided dual-lumen tunneled Reece catheter insertion on 09/05/24 at [facility]. She presents today for evaluation of her [...] tunneled Reece catheter insertion on 09/05/24 at [facility]. - For future concerns please call Interventional Radiology nurse triage line [phone], Wednesday - Wednesday 9 a.m. - 5 p.m. - After hours please call [phone] and ask for Interventional Radiology Fellow production artist. - In the event of acute symptoms report directly to local emergency department and notify the Department of Intervention Radiology after the fact. I spent a total of 25 minutes on the date of the service which included preparing to see the patient, [id number] patient care, completing clinical documentation, and obtaining and/or reviewing separately obtained history. Ghassan Angulo APRN.[facility] Interventional Radiology extension [id number] [id number] Telephone encounter Note* Telephone Encounter - Agatha Diaz LISW - 09/11/2024 4:18 PM EDT SOCIAL WORK FOLLOW UP NOTE: [facility] Date of service: 09/11/24 TOPICS [...] in Care Team tab: NA NIKOLAY Vicente [facility]03-10-2025 Miscellaneous Notes* Telephone Encounter - Agatha Diaz LISW - 09/11/2024 4:18 PM EDT SOCIAL WORK FOLLOW UP NOTE: [facility] Date of service: 09/11/24 TOPICS [...] tab: NA NIKOLAY Vicente documented in this encounterUc [facility] Hospital03-07-2025 Telephone encounter Note * Telephone Encounter - Marie Dominguez - 09/08/2024 3:14 PM EST Called pt to confirm 3 month hospital follow up appt. Patient is concerned why she is scheduled so far out. Pt was seen by Teresa in house and has some medication questions as well. Please contactpatient to assist. [facility]03-07-2025 Miscellaneous Notes* Telephone Encounter - Marie Dominguez - 09/08/2024 3:14 PM EST Called pt to confirm 3 month hospital follow up appt. Patient is concerned why she is scheduled so far out. Pt was seen by Teresa in house and has some medication questions as well. Please contactpatient to assist. documented in this encounterUc [facility] Hospital03-05-2025 NoteHNO ID: [id number] Author: ?, ?, ? Service: ? Author Type: ? Type: Plan of Care Filed: 09/06/2024 13:05 Note Text: PHARMACY BEDSIDE DELIVERY SERVICE Patient Name: Francine Hobson The marked outpatient medications were Filled at: [facility] and delivered to the patient's bedside to [facility]- delivered to patient Medication List CHANGE how [...] [facility] pharmacy bedside September 06, 2024 1:04 [facility] [id number] NoteHNO ID: [id number] Author: CHRISTA DESOUZA RN Service: Care Management Author Type: Registered Nurse Type: Care Mgt Progress Note Filed: 09/06/2024 12:51 Note Text: CARE MANAGEMENT DISCHARGE NOTE SERVICE DATE: September 06, 2024 SERVICE TIME: 12:50 PM Admission Date: 09/02/2024 LOS: 4 days Discharge Arrangement Discharge Arrangement: Home with Home Health Services Arranged Medical Services: Skilled Home Health Care Type: Home Health Agency, Fdc TPN: Discharge on TPN Infusion Pharmacy Name/Phone/Fax: [facility] [phone] [facility] Health [phone] Caregiver Assessment Caregiver is ready, willing and able to meet the patient's needs as recommended by the inter-professional team: No Caregiver needed Transportation Arrangements Transportation Arrangements: Car Destination: [address] [place] [address] [place] [address] Handoff Communication: Handoff to: Other Caregiver Other Caregiver Name/Phone: [facility] // [facility] : Additional Information: Patient ready for discharge. Confirmed clinical specialties received TPN prescription from NST. F2F sent to [facility]. Patient understands and awaiting ride from family. Discharge Information Row Name ED to Hosp-Admission (Current) from 09/02/[address] Home Health Care Agency [facility] Home Infusion Pharmacy Agency [facility]/ SIGNATURE: Christa Desouza RN PATIENT NAME: Francine Hobson DATE: September 06, 2024 TIME: 12:50 [facility] [id number] NoteHNO ID: [id number] Author: JOSE RICE MD Service: Hospital Medicine Author Type: Physician Type: Progress Notes Filed: 09/06/2024 06:24 Note Text: Documentation Query Please clarify status of Crohn's Disease Crohn's disease, unspecified without complication This document will become part of the patient's medical record.[facility] 09-06-2024 NoteHNO ID: [id number] Author: JOSE RICE MD Service: Hospital Medicine Author Type: Physician Type: Progress Notes Filed: 09/06/2024 06:23 Note Text: Documentation Query Please clarify the patient's nutritional status Provider Response: Moderate Protein Calorie Malnutrition based on the assessment, plan, and treatment This document will become part of the patient's medical record.[facility] 09-06-2024 NoteHNO ID: [id number] Author: JOSE RICE MD Service: Hospital Medicine Author Type: Physician Type: Progress Notes Filed: 09/06/2024 06:23 Note Text: Documentation Query Please clarify type of anemia Iron Deficiency Please clarify the acuity of anemia Acute on Chronic This document will become part of the patient's medical record.[facility] 09-05-2024 NoteHNO ID: [id number] Author: JOSE RICE MD Service: Hospital Medicine Author Type: Physician Type: Progress Notes Filed: 09/05/2024 13:58 Note Text: DEPARTMENT OF HOSPITAL MEDICINE PROGRESS NOTE SERVICE DATE: 09/05/2024 SERVICE TIME: 1:57 PM Hospital Medicine/Primary Attending: Jose Rice MD NIGHT AND WEEKEND COVERAGE: JACKSON COVERAGE: Days: [phone], please contact via [employer] Nights: - floor: please page CC Hospitalist night cover [phone] - 4W: please page CC Hospitalist night cover #[phone] - 5th floor: please page [facility] Hospitalist night cover #[phone] - SDU (17:00 - 19:00): Please page #[phone] - SDU (19:00 - 07:00): Please call [facility] at [phone] Subjective INTERVAL HPI: Pt seen and examined. Says she feels a little better today. Denies any new acute concerns or complaint. Discussed with IR production artist, Reece placed by IR with general anesthesia [...] and Airways Line Duration Peripheral 09/02/24 0459 [facility] Right 20 Gauge 3 days Peripheral 09/02/24 [facility] Short Left Foot 22 Gauge 3 [...] her on Eliquis f (more content not included)...[facility]ece[facility]ylt14-[facility]-4295 NoteHNO ID: [id number] Author: JOSE RICE MD Service: Hospital Medicine Author Type: Physician Type: Progress Notes Filed: 09/04/2024 14:12 Note Text: DEPARTMENT OF HOSPITAL MEDICINE PROGRESS NOTE SERVICE DATE: 09/04/2024 SERVICE TIME: 2:10 PM Hospital Medicine/Primary Attending: Jose Rice MD NIGHT AND WEEKEND COVERAGE: JACKSON COVERAGE: : , please contact via [employer] Nights: [phone] - floor: please page CC Hospitalist night cover [phone] - 4W: please page CC Hospitalist night cover #[phone] - 5th floor: please page [facility] Hospitalist night cover #[phone] - SDU (17:00 - 19:00): Please page #[phone] - SDU (19:00 - 07:00): Please call [facility] at [phone] Subjective INTERVAL HPI: Pt seen and examined. Says she feels a little better today. Denies any new acute concerns or complaint. Discussed with IR production artist today, Reece to be placed by IR [...] Drains, and Airways Line Duration Peripheral 09/02/24 3256 [facility] Right 20 Gauge 2 days Peripheral 09/02/24 [facility] Short Left Foot 22 Gauge 2 [...] she is discharged. - Discussed with IR production artist today, Nixon (more content not included)...[facility]dyyqqtr10-77-6876 NoteHNO ID: [id number] Author: JOSE RICE MD Service: Hospital Medicine Author Type: Physician Type: Progress Notes Filed: 09/03/2024 19:26 Note Text: DEPARTMENT OF HOSPITAL MEDICINE PROGRESS NOTE SERVICE DATE: 09/03/2024 SERVICE TIME: 7:01 PM Hospital Medicine/Primary Attending: Jose Rice MD NIGHT AND WEEKEND COVERAGE: JACKSON COVERAGE: Days: [phone], please contact via [employer] Nights: - 3rd floor: please page CC Hospitalist night cover [phone] - 4W: please page CC Hospitalist night cover #[phone] - 5th floor: please page [facility] Hospitalist night cover #[phone] - SDU (17:00 - 19:00): Please page #[phone] - SDU (19:00 - 07:00): Please call [facility] at [phone] Subjective INTERVAL HPI: Pt seen and examined. Says she feels a little better today. Denies any new acute concerns or complaint. Discussed with IR production artist today, Reece to be placed by IR [...] and Airways Line Duration Peripheral 09/02/24 0459 [facility] Right 20 Gauge 1 day Peripheral 09/02/24 [facility] Short Left Foot 22 Gauge 1 [...] is discharged. - IR (more content not included)...[facility]Mmnlxnpd38-04-3737 NoteHNO ID: [id number] Author: CECILIA WASHBURN MSW Service: Care Management Author Type: Recruiter Account Manager Type: Care Mgt Initial Assessment Filed: 09/03/2024 10:42 Note Text: CARE MANAGEMENT: ASSESSMENT AND DISCHARGE PLAN SERVICE DATE: September 03, 2024 SERVICE TIME: 10:24 AM PCP: No primary care provider on file. Primary Contact: Extended Emergency Contact Information Primary Emergency Contact: RUKHSANA HUGGINS Mobile Relation: Sister Secondary Emergency Contact: ValenteArthur Mobile Relation: Significant other Admission Status: Inpatient [facility] Discharge Planning requested by: Per Department Practice Potential Transition Plans Home Care, Home Care Pharmacy Advance Directives Current Advance Directive: None Official Court Reporter Attempted to Assist with AD Completion: Yes [...] Current Post-Acute Service(s) Provider: Clinical Specialties, an [facility] for TPN, [facility] for home health Discharge Planning Patient Goal(s): General wellness [place] Explained: [place] [facility] [place] Given: Yes Level of Care [...] Hobson DATE: September 03, 2024 TIME: 10:24 [facility] NoteHNO ID: [id number] Author: JOSE RICE MD Service: Hospital Medicine [...] TPN. Continue currrent rx and continue to monitor.[facility] HospitalSxswtasi84-44-7115 NoteHNO ID: [id number] Author: MINDI REBOLLEDO RT(R) Service: Radiology Author [...] PATIENT PRESENTS WITH AN IMPLANTABLE OR ATTACHED MECHANICAL DESIGN ENGINEER FACILITIES: No RADIOLOGY DEPARTMENT: Ultrasound PERIPHERAL IV DATA: Not applicable SIGNED BY: RT Tobi(R) September 01, 2024 6:48 [id number] Telephone encounter Note* Telephone Encounter - Darlene [...] daily. Cathflo order faxed to [facility] [phone]. Also asking for extension sets for line so pt can do own care and flushing needs. [facility]. Called [facility], they said pt uses [...] ER for line needs. Darlene Solis, RN [facility]02-27-2025 Miscellaneous Notes* Telephone Encounter - Darlene Solis [...] daily. Cathflo order faxed to [facility] [phone]. Also asking for extension sets for line so pt can do own care and flushing needs. [facility] on [facility]. Called [facility], they said pt uses [...] juaquin. They have [facility] home care. [id number] documented in [facility] Telephone encounter Note * Telephone Encounter - Sánchez Dubon - 08/31/2024 10:21 AM EST Spouse called to let the office know the pt has a clogged line and needs cath juaquin. They have [facility] home care. [phone] [facility]02-26-20[facility] Note [facility]02-24-2025 [facility]-20[facility]20[facility] 08-26-2024 [facility]-2025 [facility]-2025 [facility]-2025 [facility]-2025 [facility]02-18-2025 Note [facility]02-17-2025 [facility]-17-2025 [facility]-2025 [facility] 08-20-2024 [facility]02-16-2025 [facility]02-15-2025 [facility]02-14-2025 [facility]-14-2025 [facility]-14-2025 Note [facility]02-14-2025 [facility]02-14-2025 [facility]-13-2025 [facility] 08-16-2024 Telephone encounter Note* Telephone Encounter - Gloria Hobbs LPN - 08/16/2024 3:21 PM EST Images from the original note were not included. Armand Baca MD, PhD to [place] 08/16/24 3:20 PM Thank you for the updateGloria. I agree with ER referral. Very sick patient. KAY Hobbs LPN [facility]02-12-2025 Miscellaneous Notes* Telephone Encounter - Gloria Hobbs LPN - 08/16/2024 3:21 PM EST Images from the original note were not included. Armand Baca MD, PhD to [place] 08/16/24 3:20 PM Thank you for the [...] and stated she will be coming into [facility] ER. Please advise Gloria Hobbs LPN documented in [facility] Telephone encounter Note * Telephone Encounter - [...] and stated she will be coming into [facility] ER. Please advise Gloria Hobbs LPN [facility]02-04-2025 [facility]02-04-2025 Note [facility]02-03-2025 [facility]02-03-2025 Telephone encounter Note* Telephone Encounter - Gloria Hobbs LPN - 08/07/2024 2:11 PM EST Called spoke with patient who accepted 08/22/24 11:[address] Hoover in person. Patient is scheduled for the CTe 08/22/24 9:00 am. This add on clinic is not yet opened in [facility]. Patient will be added once opened. Gloria Hobbs LPN [facility]02-03-2025 Miscellaneous Notes* Telephone Encounter - Gloria Hobbs LPN - 08/07/2024 2:11 PM EST Called spoke with patient who accepted 08/22/24 11:[address] Hoover in person. Patient is scheduled for the CTe 08/22/24 9:00 am. This add on clinic is not yet opened in [facility]. Patient will be added once opened. [...] advise Gloria Hobbs LPN documented in this encounterU[facility]02-03-2025 [facility]02-02-2025 [facility]02-01-2025 [facility]01-31-2025 [facility]01-31-2025 Telephone encounter Note* Telephone Encounter - [...] follow up. Please advise Gloria Hobbs LPN [facility]01-31-2025 [facility]01-30-2025 Note [facility]01-30-2025 NoteHNO ID: [id number] Author: CAMILLA YANES RN Service: Nursing Author Type: Registered Nurse Type: Nursing Progress Note Filed: 08/03/2024 19:24 Note Text: Other: Pt refusing BGL. Pt states that she will do one at 0000 this evening. [facility]01-30-2025 [facility]01-29-2025 [facility]01-29-2025 NoteHNO ID: [id number] Author: BRIAN JANE RN Service: Nursing Author Type: Registered Nurse Type: Progress Notes Filed: 08/02/2024 00:22 Note Text: Pt refused blood sugar checkDunlap Memorial Hospital01-28-2025 [facility]Dun[facility]01-28-2025 [facility]01-26-2025 Hospital Discharge instructions* Discharge Instructions* Dhara [...] infectious disease doctor, and follow-up with the [facility] as soon as possible Pt instructed to return to Emergency room tomorrow if [facility] does not admit her to get IVantibiotics documented in this encounterBon [facility] History of Present illness Narrative* Dhara Shelby RN - 07/30/2024 11:00 AM EST Giving pt Iv antibiotics Pts boyfriend came in demanding to see the dr now Boyfriend stated he needs her dc so he can take her to [facility] himself. Dr Lucas perfect served and here to seept and boyfriend. Soft Metals Hand Engraver walked out of room when customs entry writer returned pts boyfriend disconnected pt fromTPN. Pt and Pts boyfriend yelling loudly at Dr and stating she needs to be dc . Dr Casiano statedto pt and boyfriend she need to make sure she was medically stable. Which included bp stable and antibiotics can be arranged for home. Retook bp 119/82 . Soft [employer] Hand Engraver talked with Dr Grover per phone and Dr Grover stated if antibiotics can arranged for home she knows it wont happen till tomorrow because itsSunday so if pt not admitted to [facility] she will have antibiotics set up for home DC c4 planner talked with pt and boyfriend and gave home care option. Pt agreeable to come to Er tomorrow for IV antibiotics if [facility] does not admit her and home antibiotics can not be arranged Talked with Dr Brito on phone and informed her above of Dr grover and dc c4 planner talking to pt. Dr Lucas stated [...] Calf (gastrocnemius) Fluid Accumulation: No fluid accumulation Programmer Strength: Not Performed Nutrition Assessment: Follow up [...] Measures: Height: 170.2 cm (5' 7.01 ) [place] Body Weight (IBW): 135 lbs (61 kg) [...] Used for Energy Requirements: Admission Energy (kcal/day): 7418-9811 kcals/day Weight Used for Protein Requirements: Admission Protein (g/day): 60-80 gm pro/day Method Used for Fluid Requirements: ml/Kg Fluid (ml/day): 35 mL/kg = 3219-3536 mL/day or per MD Nutrition Diagnosis: Severe [...] to determine Jose Manuel Nicole RD Contact: [phone] * Darlene Nagy RN - 07/30/2024 8:41 AM EST Received call from patient's Arthur CARR, wanting to talk to the floor director. He is upset that the patient was told yesterday that the patient could leave to go another hospital and it would be adischarge, not an AMA. [employer] Hand Engraver advises Arthur that the best person for information is the primary nurse, Dhara. He asks who is responsible for the patient's discharge. Soft [employer] Hand Engraver advises the admitting doctor is Dr. Lucas [...] hrs and will start disconnecting her lines. Soft [employer] Hand Engraver advises the best thing to do is [...] from Nurse Access- no bed available at [facility]. * Dhara Shelby RN - 07/30/2024 7:20 AM EST When doing bedside report . Pt states Im leaving after my 10am antibiotic since they do not have bed at [facility] yet. My brother and boy friend are coming to get me to take me to [facility] ER at 1030am. Dr Eller here and talked to pt and explained to pt she can not discharge herrt still needs TPN and antibiotics . She stated if they could arrange TPN and antibiotics for home she would dc her. Notified Dc c4 planner refer to her note. Pt states she is leaving after antibiotic is given and leaving to [facility] * Elizabeth Read RN - 07/30/2024 3:49 AM EST Patient refused accu check. Education provided patient continue to refuse. * Pita Hare RN - 07/29/2024 3:06 PM EST [facility] called to say they do not have a bed. * Nereyda Lucas MD - 07/29/2024 12:36 PM EST Images from the original note were not included. [facility] Office: [phone] Marco Delarosa DO, Dominic Gonzalez DO, Clifton [...] Valentin MD, Tony Valentin MD, Alix Acosta, DIRECTOR OF RESEARCH AND DEVELOPMENT, Shefali Hills, DIRECTOR OF RESEARCH AND DEVELOPMENT, Ashley Baker, DIRECTOR OF RESEARCH AND DEVELOPMENT, Muna Brandon, CRESENCIO, Neida Mars, DIRECTOR OF RESEARCH AND DEVELOPMENT, Jigna De Dios, DIRECTOR OF RESEARCH AND DEVELOPMENT, Angelina Peguero, DIRECTOR OF RESEARCH AND DEVELOPMENT, Adwoa Lei, DIRECTOR OF RESEARCH AND DEVELOPMENT, JOHN AsifC, JOHN TylerC, Jaz Castaneda, DIRECTOR OF RESEARCH AND DEVELOPMENT, Robert Huertas, DIRECTOR OF RESEARCH AND DEVELOPMENT, Vanessa Saleh, DIRECTOR OF RESEARCH AND DEVELOPMENT, Philly Mcgarry, DIRECTOR OF RESEARCH AND DEVELOPMENT, Josefina Higgins, DIRECTOR OF RESEARCH AND DEVELOPMENT, Chanel Mccullough, [facility], Ghassan Schwartz, DIRECTOR OF RESEARCH AND DEVELOPMENT, Lissett Root, DIRECTOR OF RESEARCH AND DEVELOPMENT, Lu Cooley, DIRECTOR OF RESEARCH AND DEVELOPMENT [facility] IN-PATIENT SERVICE [facility] Progress Note 07/29/2024 12:36 PM Name: Francine Hobson Acct: [id number] Room: [address] [place] [address] Day: 10 Admit Date: 07/19/2024 12:43 PM [...] sign consultants note reviewed Awaiting transfer to [facility] Brief History: Per documentation This is a [...] after having used the following drugs: Marijuana ([place]). Family History: History reviewed. No pertinent family [...] , PHART , PH , POCPCO2 , WXO9FPI , PCO2 , POCPO2 , PO2ART , PO2 , POCHCO3 , CYI5UTR , HCO3 , NBEA , PBEA , BEART , BE , THGBART , THB , GHX8CQP , FZZD9AQH , V9YPOOHW , O2SAT , FIO2 Lab Results Component [...] and read back by:WAQAS De Guzman 05/04/24 0856 Radiology: XR ABDOMEN FOR NG/OG/NE TUBE PLACEMENT [...] TPN and to transfer the patient to [facility] to be evaluated by IBD GI IBD surgeon and price checker, awaiting transfer to [facility], worsening of abdominal pain today will check [...] Measures: Height: 170.2 cm (5' 7.01 ) [place] Body Weight (IBW): 135 lbs (61 kg) [...] Used for Energy Requirements: Admission Energy (kcal/day): 3916-9940 kcals/day Weight Used for Protein Requirements: Admission Protein (g/day): 60-80 gm pro/day Method Used for Fluid Requirements: ml/Kg Fluid (ml/day): 35 mL/kg = 8900-0742 mL/day or per MD Nutrition Diagnosis: Severe [...] to determine Jose Manuel Nicole RD Contact: [phone] * Manjit Grover MD - 07/29/2024 8:44 AM EST Images from the original note were not included. [facility] - Infectious diseases evaluation admission date 07/19/2024 [...] the patient to be transferred to the [facility] for considerationof surgery If the patient ends up being discharged home the plan will be to switch to IV ertapenem to completea 28-day course of therapy then CTAP - reconsiled Office f/up in [address] Grover for infection. Please call [phone] for appointment . Infection Control Recommendations [place] Precautions Contact isolation Antimicrobial Stewardship Recommendations Simplification [...] but no anti-inflammatory or biologic therapy from [facility] cern of her rectal abscess. She is planning on consultation with the [facility] but has not done so yet. Her [...] BIOPSY performed by Maru Maguire MD at [facility] ENDO CT ABSCESS DRAINAGE 05/03/2024 CT ABSCESS DRAIN SUBCUTANEOUS 05/03/2024 Jose Manuel Torre MD [facility] CT SCAN TONSILLECTOMY AND ADENOIDECTOMY TUMOR [...] occass. Drug use: Not Currently Types: Marijuana ([place]) Comment: occassional Sexual activity: Yes Partners: Male Other Topics Concern Not on file Social History Narrative Not on file Social Determinants of Health Financial Resource Strain: Low Risk (11/24/2022) Received from [facility] Overall Financial Resource Strain (CARDIA) Difficulty [...] file Social Connections: Unknown (06/03/2021) Received from [facility] Social [facility]ctions Frequency of Communication with Friends and Family: Not asked Frequency of Social Gatherings with Friends and Family: Not asked Intimate Partner Violence: Unknown (06/03/2021) Received from [facility] Intimate Partner Violence Fear of Current or [...] Rodas MD Office: Perfect serve / office [phone] I have discussed the care of the patient, including pertinent history and exam findings, with the resident., student or DIRECTOR OF RESEARCH AND DEVELOPMENT- I have seen and examined the patient and the price elements of all parts of the encounter have been performed by me. I have decided the assessment, plan and orders as documented by the resident.student or DIRECTOR OF RESEARCH AND DEVELOPMENT Manjit Grover, Infectious Diseases * Nena Steve RN - 07/29/2024 7:40 AM EST Received a call from [facility], about the non availability of a bed [...] Calf (gastrocnemius) Fluid Accumulation: No fluid accumulation Programmer Strength: Not Performed Nutrition Assessment: Pt's diet downgraded to NPO with sips of water with meds. Pt reports crampy abdominal pain. +BM's yesterday. TPN/IL continues. Discussed labs with RN - K+ trending up. Additional IV fluids started yesterday d/t soft blood pressure. Weight fluctuations noted - likely due to fluids. Meds reviewed. Awaiting transfer to [facility]. Nutrition Related Findings: Hypoactive bowel sounds. [...] Measures: Height: 170.2 cm (5' 7.01 ) [place] Body Weight (IBW): 135 lbs (61 kg) [...] Used for Energy Requirements: Admission Energy (kcal/day): 4044-8075 kcals/day Weight Used for Protein Requirements: Admission Protein (g/day): 60-80 gm pro/day Method Used for Fluid Requirements: ml/Kg Fluid (ml/day): 35 mL/kg = 7518-0695 mL/day or per MD Nutrition Diagnosis: Severe [...] to determine Kayleigh Finch RD, LD Contact: [phone] * Nereyda Lucas MD - 07/28/2024 10:58 AM EST Images from the original note were not included. [facility] Office: [phone] Marco Delarosa DO, Dominic Gonzalez DO, Clifton [...] Valentin MD, Tony Valentin MD, Alix Acosta, DIRECTOR OF RESEARCH AND DEVELOPMENT, Shefali Hills DIRECTOR OF RESEARCH AND DEVELOPMENT, Ashley Baker, DIRECTOR OF RESEARCH AND DEVELOPMENT, Muna Brandon, CRESENCIO, Neida Mars, DIRECTOR OF RESEARCH AND DEVELOPMENT, Jigna De Dios, DIRECTOR OF RESEARCH AND DEVELOPMENT, Angelina Peguero, DIRECTOR OF RESEARCH AND DEVELOPMENT, Adwoa Lei, DIRECTOR OF RESEARCH AND DEVELOPMENT, Carmen Wray PAOliviaC, Kathy Apple PAOliviaC, Jaz Castaneda, DIRECTOR OF RESEARCH AND DEVELOPMENT, Robert Huertas, DIRECTOR OF RESEARCH AND DEVELOPMENT, Vanessa Saleh, DIRECTOR OF RESEARCH AND DEVELOPMENT, Philly Mcgarry, DIRECTOR OF RESEARCH AND DEVELOPMENT, Josefina Higgins, DIRECTOR OF RESEARCH AND DEVELOPMENT, Chanel Mccullough, PUTTY MIXER, Ghassan Schwartz, DIRECTOR OF RESEARCH AND DEVELOPMENT, Lissett Root, DIRECTOR OF RESEARCH AND DEVELOPMENT, Lu Cooley, DIRECTOR OF RESEARCH AND DEVELOPMENT [facility] IN-PATIENT SERVICE [facility] Progress Note 07/28/2024 10:58 AM Name: Francine Hobson Acct: [id number] Room: [facility]/0243-01 IP Day: 9 Admit Date: [...] sign consultants note reviewed Awaiting transfer to [facility] Brief History: Per documentation This is a [...] after having used the following drugs: Marijuana ([place]). Family History: History reviewed. No pertinent family [...] , CRP , INR , DDIMER , XP1SXVYC , LABABSO in the last 72 hours. Invalid input(s): PT Chemistry: Recent Labs 07/27/24 0637 07/28/24 0812 NA 137 139 K 4.3 5.0 CL 102 105 CO2 26 27 GLUCOSE 91 90 BUN 8 10 CREATININE 0.5* 0.5* MG 2.5 2.3 ANIONGAP 9 7* LABGLOM >90 >90 CALCIUM 8.8 9.2 PHOS 4.4 4.1 No results for input(s): LABALBU , LABA1C , I6NYWPO , FT4 , TSH , AST , ALT , LDH , GGT , ALKPHOS , BILITOT , BILIDIR , AMMONIA , AMYLASE , LIPASE , LACTATE , CHOL , HDL , CHOLHDLRATIO , TRIG , VLDL , UON00LG , PHENYTOIN , PHENYF , URICACID , POCGLU in the last 72 hours. Invalid input(s): PROT , H4NWT[place] , LABGGT , LDLCHOLESTEROL ABG:No results found for: POCPH , PHART , PH , POCPCO2 , GCY6YLM , PCO2 , POCPO2 , PO2ART , PO2 , POCHCO3 , MZY8NMM , HCO3 , NBEA , PBEA , BEART , BE , THGBART , THB , KJB2EYF , PKED8ASS , F5YVWQKE , O2SAT , FIO2 Lab Results Component [...] and read back by:WAQAS De Guzman 05/04/24 6390 Radiology: XR ABDOMEN FOR NG/OG/NE TUBE PLACEMENT [...] TPN and to transfer the patient to [facility] to be evaluated by IBD GI IBD surgeon and price checker, awaiting transfer to [facility] Continue IV Zosyn Hypotension continue IV fluid, [...] , TIBC , IRON , FERRITIN , QZXQFLVP92 , FOLATE , OCCULTBLD in the last [...] NPO except for meds Awaiting transfer to [facility] where they have a dedicated IBD team including IBD GI, IBD surgeon and hat blocking operator Continue broad-spectrum antibiotics per ID discretion. [...] of your patient. Isabelle Gandhi, DIONISIO - DIRECTOR OF RESEARCH AND DEVELOPMENT on 07/28/2024 at 10:54 AM [facility] Please note that this note was generated using a voice recognition dictation software. Although every effort was made to ensure the accuracy of this automated welding machine operator, some errors in welding machine operator may have occurred. Attested: I have discussed [...] from the original note were not included. [facility] Office: [phone] Marco Delarosa DO, Dominic Gonzalez DO, Clifton [...] Baker CNP, Muna Brandon, CRESENCIO, Neida Mars, DIRECTOR OF RESEARCH AND DEVELOPMENT, Jigna De Dios, DIRECTOR OF RESEARCH AND DEVELOPMENT, Angelina Peguero, DIRECTOR OF RESEARCH AND DEVELOPMENT, Adwoa Lei, DIRECTOR OF RESEARCH AND DEVELOPMENT, Carmen Wray PA-C, Kathy Apple PA-C, Jaz Castaneda DIRECTOR OF RESEARCH AND DEVELOPMENT, Robert Huertas DIRECTOR OF RESEARCH AND DEVELOPMENT, Vanessa Saleh, DIRECTOR OF RESEARCH AND DEVELOPMENT, Philly Mcgarry, DIRECTOR OF RESEARCH AND DEVELOPMENT, Josefina Higgins, DIRECTOR OF RESEARCH AND DEVELOPMENT, Chanel Mccullough, PUTTY MIXER, Ghassan Schwartz, DIRECTOR OF RESEARCH AND DEVELOPMENT, Lissett Root, DIRECTOR OF RESEARCH AND DEVELOPMENT, Lu Cooley, DIRECTOR OF RESEARCH AND DEVELOPMENT [facility] IN-PATIENT SERVICE [facility] Progress Note 07/27/2024 12:19 PM Name: Francine Hobson Acct: [id number] Room: [address] [place] [address] IP Day: 8 Admit Date: 07/19/2024 12:43 [...] and will continue to monitor Discussed with multi care technician vital sign consultants note reviewed Awaiting transfer to [facility] Brief History: Per documentation This is a [...] after having used the following drugs: Marijuana ([place]). Family History: History reviewed. No pertinent family [...] results for input(s): LABALBU , LABA1C , S7ZDILR , FT4 , TSH , AST , ALT , LDH , GGT , ALKPHOS , BILITOT , BILIDIR , AMMONIA , AMYLASE , LIPASE , LACTATE , CHOL , HDL , CHOLHDLRATIO , TRIG , VLDL , OJM84WL , PHENYTOIN , PHENYF , URICACID , POCGLU in the last 72 hours. Invalid input(s): PROT , W1RDORW , LABGGT , LDLCHOLESTEROL ABG:No results found for: POCPH , PHART , PH , POCPCO2 , IQZ5IWQ , PCO2 , POCPO2 , PO2ART , PO2 , POCHCO3 , JSB9WIY , HCO3 , NBEA , PBEA , BEART , BE , THGBART , THB , VLL6XRN , UKXW3JGQ , Y3OIOOHF , O2SAT , FIO2 Lab Results Component [...] and read back by:WAQAS De Guzman 05/04/24 1867 Radiology: XR ABDOMEN FOR NG/OG/NE TUBE PLACEMENT [...] TPN and to transfer the patient to [facility] to be evaluated by IBD GI IBD surgeon and price checker, awaiting transfer to [facility] Continue IV Zosyn Hypotension continue IV fluid, [...] Measures: Height: 170.2 cm (5' 7.01 ) [place] Body Weight (IBW): 135 lbs (61 kg) [...] Used for Energy Requirements: Admission Energy (kcal/day): 0535-4824 kcals/day Weight Used for Protein Requirements: Admission Protein (g/day): 60-80 gm pro/day Method Used for Fluid Requirements: ml/Kg Fluid (ml/day): 35 mL/kg = 9584-2777 mL/day or per MD Nutrition Diagnosis: Severe [...] determine Elsy Cotter RDN, LD, MS Contact: [phone] * Hemant Katz MD - 07/27/2024 7:19 [...] liquid yesterday. Is amenable to transfer to [facility] for higher level care. Waiting on bed [...] Recommend evaluation by general surgery service at [facility], has beed accepted but waiting on bed. This has been discussed with the patient's primary team. Ashley Loyola, DO 07/27/24 General Surgery PGY [address] Katz saw and examined the patient. I have edited the above and agree with the above. Hemant Katz Colorectal Surgery * Maru Maguire MD - 07/27/2024 5:[address] [facility] Gastroenterology Progress Note Francine Hobson is [...] , TIBC , IRON , FERRITIN , [id number] , FOLATE , OCCULTBLD in the last [...] ice chips and popsicles Awaiting transfer to [facility] where they have a dedicated IBD team including IBD GI, IBD surgeon and hat blocking operator Continue broad-spectrum antibiotics per ID discretion. [...] of your patient. Isabelle Gandhi, DIONISIO - DIRECTOR OF RESEARCH AND DEVELOPMENT on 07/27/2024 at 5:59 AM [facility] Please note that this note was generated using a voice recognition dictation software. Although every effort was made to ensure the accuracy of this automated welding machine operator, some errors in welding machine operator may have occurred. Attested: I have discussed [...] from the original note were not included. [facility] Office: [phone] Marco Delarosa DO, Dominic Gonzalez, DO, Clifton [...] Valentin MD, Tony Valentin MD, Alix Acosta, DIRECTOR OF RESEARCH AND DEVELOPMENT, Shefali Hills, DIRECTOR OF RESEARCH AND DEVELOPMENT, Ashley Baker, DIRECTOR OF RESEARCH AND DEVELOPMENT, Muna Brandon, DNP, Neida Mars, DIRECTOR OF RESEARCH AND DEVELOPMENT, Jigna De Dios, DIRECTOR OF RESEARCH AND DEVELOPMENT, Angelina Peguero, DIRECTOR OF RESEARCH AND DEVELOPMENT, Adwoa Lei, DIRECTOR OF RESEARCH AND DEVELOPMENT, Carmen Wray, PA-C, Kathy Apple, PA-C, Jaz Castaneda, DIRECTOR OF RESEARCH AND DEVELOPMENT, Robert Huertas, DIRECTOR OF RESEARCH AND DEVELOPMENT, Vanessa Saleh, DIRECTOR OF RESEARCH AND DEVELOPMENT, Philly Mcgarry, DIRECTOR OF RESEARCH AND DEVELOPMENT, Josefina Higgins, DIRECTOR OF RESEARCH AND DEVELOPMENT, Chanel Mccullough, PUTTY MIXER, Ghassan Schwartz DIRECTOR OF RESEARCH AND DEVELOPMENT, Lissett Root, DIRECTOR OF RESEARCH AND DEVELOPMENT, Lu Cooley, DIRECTOR OF RESEARCH AND DEVELOPMENT [facility] IN-PATIENT SERVICE [facility] Progress Note 07/26/2024 11:01 AM Name: Francine Hobson Acct: [id number] Room: 0243/0243-01 Day: 7 Admit Date: 07/19/2024 12:43 PM PCP: Dalia Apple DO Code Status: Full Code Subjective: C/C: Chief Complaint Patient presents with Abdominal Pain Vomiting Interval History Status: not changed. Seen and examined, continue reports abdominal pain and loose stool, had 4 bowel movements yesterdayand 1 loose stool today morning Lab vital sign consultants note reviewed Awaiting transfer to [facility] Brief History: Per documentation This is a [...] after having used the following drugs: Marijuana ([place]). Family History: History reviewed. No pertinent family [...] , PHART , PH , POCPCO2 , PQS6JKN , PCO2 , POCPO2 , PO2ART , PO2 , POCHCO3 , LVD0QDE , HCO3 , NBEA , PBEA , BEART , BE , THGBART , THB , YSF2FWM , RBCW7RAY , E5HENOIG , O2SAT , FIO2 Lab Results Component [...] TPN and to transfer the patient to [facility] to be evaluated by IBD GI IBD surgeon and price checker, awaiting transfer to [facility] Continue IV Zosyn Hypotension continue IV fluid, [...] Calf (gastrocnemius) Fluid Accumulation: No fluid accumulation Programmer Strength: Not Performed Nutrition Assessment: TPN/IL continues. No new labs available today. Pt remains NPO, allowed only sips with meds. Reportscontinued abdominal pain. Noted planning for transfer to [facility] as bed available. Meds reviewed: Zofran PRN. [...] Measures: Height: 170.2 cm (5' 7.01 ) [place] Body Weight (IBW): 135 lbs (61 kg) [...] Used for Energy Requirements: Admission Energy (kcal/day): 5641-7087 kcals/day Weight Used for Protein Requirements: Admission Protein (g/day): 60-80 gm pro/day Method Used for Fluid Requirements: ml/Kg Fluid (ml/day): 35 mL/kg = 3033-2984 mL/day or per MD Nutrition Diagnosis: Severe [...] Parenteral Nutrition Kayleigh Finch RD, TA Contact: [phone] * Vick Owens MD - 07/26/2024 8:37 [...] the patient to be transferred to the [facility] for considerationof surgery If the patient ends up being discharged home the plan will be to switch to IV ertapenem to completea 28-day course of therapy Office f/up in [address] Grover for infection. Please call [phone] for appointment . Infection Control Recommendations: [place] Precautions Contact isolation Discharge Planning: Estimated Length [...] Component Value Units Date/Time Gastrointestinal Panel, Molecular [[id number]] Collected: 07/22/24 1259 Order Status: Completed Specimen: Stool Updated: 07/23/24 0936 Specimen Description .FECES Campylobacter PCR NEGATIVE: No [...] on medical decision making for this patient. [employer] * Hemant Katz MD - 07/26/2024 7:58 [...] this morning. Is amenable to transfer to [facility] for higher level care. Waiting on bed [...] Recommend evaluation by general surgery service at [facility], has beed accepted but waiting on bed. This has been discussed with the patient's primary team. Ashley Loyola, 07/26/24 General Surgery PGY [address] Katz saw and examined the patient. I have edited the above and agree with the above. Hemant Katz Colorectal Surgery * Maru Maguire MD - 07/26/2024 7:[address] [facility] Gastroenterology Progress Note Francine Hobson is [...] , TIBC , IRON , FERRITIN , [id number] , FOLATE , OCCULTBLD in the last [...] ice chips and popsicles Awaiting transfer to [facility] where they have a dedicated IBD team including IBD GI, IBD surgeon and hat blocking operator Continue broad-spectrum antibiotics per ID discretion. [...] the care of your patient. Isabelle Gandhi, BACKUP SAWYER - DIRECTOR OF RESEARCH AND DEVELOPMENT on 07/26/2024 at 7:30 AM [facility] Please note that this note was generated using a voice recognition dictation software. Although every effort was made to ensure the accuracy of this automated welding machine operator, some errors in welding machine operator may have occurred. Attested: I have discussed [...] from the original note were not included. [facility] Office: [phone] Marco Delarosa DO, Dominci Gonzalez DO, Clifton Blanc DO, Froylan Snowden DO, Paula Jensen MD, Radha Greer MD, Nitish Parra MD, Maya Hernández MD, Porfirio García MD, Norma Smith MD, Tanya Mercado MD, Eloy lAves DO, Heidi Roche MD, Arthur Schroeder MD, Jose Manuel Delarosa DO, Shikha Pastrana MD, Obed Lilly DO, Rosangela Koehler MD, Alysa De Santiago MD, Dianne Agudelo MD, Judith Nicole MD, London Morales MD, Gamal Granger MD, Abby Salgado MD, Nereyda Lucas MD, Dru Shannon MD, Shahid Reddy MD, Ashley Schaffer DO, Cruzito Holloway MD, Eloy Valentin MD, Tony Valentin MD, Alix Acosta, DIRECTOR OF RESEARCH AND DEVELOPMENT, Shefali Hills, DIRECTOR OF RESEARCH AND DEVELOPMENT, Ashley Baker, DIRECTOR OF RESEARCH AND DEVELOPMENT, Muna Brandon, [facility], Neida Mars, DIRECTOR OF RESEARCH AND DEVELOPMENT, Jigna De Dios, DIRECTOR OF RESEARCH AND DEVELOPMENT, Angelina Peguero, DIRECTOR OF RESEARCH AND DEVELOPMENT, Adwoa Lei, DIRECTOR OF RESEARCH AND DEVELOPMENT, Carmen Wray, PA-C, Kathy Apple, PA-C, Jza Castaneda, DIRECTOR OF RESEARCH AND DEVELOPMENT, Robert Huertas, DIRECTOR OF RESEARCH AND DEVELOPMENT, Vanessa Saleh, DIRECTOR OF RESEARCH AND DEVELOPMENT, Philly Mcgarry, DIRECTOR OF RESEARCH AND DEVELOPMENT, Josefina Higgins, DIRECTOR OF RESEARCH AND DEVELOPMENT, Chanel Mccullough, PUTTY MIXER, Ghassan Schwartz, DIRECTOR OF RESEARCH AND DEVELOPMENT, Lissett Root, DIRECTOR OF RESEARCH AND DEVELOPMENT, Lu Cooley, DIRECTOR OF RESEARCH AND DEVELOPMENT [facility] IN-PATIENT SERVICE [facility] Progress Note 07/25/2024 12:37 PM Name: Francine Hobson Acct: [id number] Room: 0243/0243-01 IP Day: 6 Admit Date: [...] sign consultants note reviewed Awaiting transfer to [facility] Brief History: Per documentation This is a [...] after having used the following drugs: Marijuana ([place]). Family History: History reviewed. No pertinent family [...] , PHART , PH , POCPCO2 , NVB3IUQ , PCO2 , POCPO2 , PO2ART , PO2 , POCHCO3 , BSO2LLD , HCO3 , NBEA , PBEA , BEART , BE , THGBART , THB , LDW4HYE , QGKG6JUF , Q6ZMHZXC , O2SAT , FIO2 Lab Results Component [...] and read back by:WAQAS De Guzman 05/04/24 8466 Radiology: XR ABDOMEN FOR NG/OG/NE TUBE PLACEMENT [...] TPN and to transfer the patient to [facility] to be evaluated by IBD GI IBD surgeon and price checker, awaiting transfer to [facility] Continue IV Zosyn Hypotension continue IV fluid, [...] Calf (gastrocnemius) Fluid Accumulation: No fluid accumulation Programmer Strength: Not Performed Nutrition Assessment: TPN/IL continues. Labs reviewed - Ca 8.3 mg/dL. Pt remains NPO with sips of water with meds. Pt reports abdominal pain continues but was worse with food (reports was given meal tray with eggs on accident over the weekend). Discussed with RN. Noted planning for transfer to [facility] as bed available. Meds reviewed: Antibiotics, [...] Measures: Height: 170.2 cm (5' 7.01 ) [place] Body Weight (IBW): 135 lbs (61 kg) [...] Used for Energy Requirements: Admission Energy (kcal/day): 0431-3584 kcals/day Weight Used for Protein Requirements: Admission Protein (g/day): 60-80 gm pro/day Method Used for Fluid Requirements: ml/Kg Fluid (ml/day): 35 mL/kg = 2085-1139 mL/day or per MD Nutrition Diagnosis: Severe [...] to determine Kayleigh Finch RD, LD Contact: [phone] * Vick Owens MD - 07/25/2024 10:14 AM EST [facility] - Progress Note Today's Date and Time: [...] the patient to be transferred to the [facility] for considerationof surgery If the patient ends up being discharged home the plan will be to switch to IV ertapenem to completea 28-day course of therapy Office f/up in [address] Grover for infection. Please call [phone] for appointment . Medical Decision Making/Summary/Discussion:07/25/2024 IR [...] [facility], d/c with primary Infection Control Recommendations [place] Precautions Contact isolation Antimicrobial Stewardship Recommendations Simplification [...] She is planning on consultation with the [facility] but has not done so yet. Her [...] BIOPSY performed by Maru Maguire MD at [facility] ENDO CT ABSCESS DRAINAGE 05/03/2024 CT ABSCESS DRAIN SUBCUTANEOUS 05/03/2024 Jose Manuel Torre MD [facility] CT SCAN TONSILLECTOMY AND ADENOIDECTOMY TUMOR [...] occass. Drug use: Not Currently Types: Marijuana ([place]) Comment: occassional Sexual activity: Yes Partners: Male Other Topics Concern Not on file Social History Narrative Not on file Social Determinants of Health Financial Resource Strain: Low Risk (11/24/2022) Received from [facility] Overall Financial Resource Strain (CARDIA) Difficulty [...] file Social Connections: Unknown (06/03/2021) Received from [facility] Social [facility]ctions Frequency of Communication with Friends and Family: Not asked Frequency of Social Gatherings with Friends and Family: Not asked Intimate Partner Violence: Unknown (06/03/2021) Received from [facility] Intimate Partner Violence Fear of Current or [...] also noted in the pelvis. Medical Decision Woucvc-Hhoyvzcc-Qanjy: Results Procedure Component Value Units Date/Time Gastrointestinal Panel, Molecular [[id number]] Collected: 07/22/24 1259 Order Status: Completed Specimen: Stool Updated: 07/23/24 0945 Specimen Description .FECES Campylobacter PCR NEGATIVE: No [...] on medical decision making for this patient. [employer] * Hemant Katz MD - 07/25/2024 8:23 [...] this morning. Is amenable to transfer to [facility] for higher level care. OBJECTIVE: VITALS: BP [...] Recommend evaluation by general surgery service at [facility]. This has been discussed with the patient's primary team. Ashley Loyola DO 07/25/24 2:15 PM General Surgery PGY [address] Katz saw and examined the patient. I have edited the above and agree with the above. Hemant Katz Colorectal Surgery * Maru Maguire MD - 07/25/2024 6:[address] [facility] Gastroenterology Progress Note Francine Hobson is [...] , TIBC , IRON , FERRITIN , [id number] , FOLATE , OCCULTBLD in the last [...] ice chips or popsicles Recommend transfer to [facility] where they have a dedicated IBD team including IBD GI, IBD surgeon and hat blocking operator Continue broad-spectrum antibiotics per ID discretion. [...] of your patient. Isabelle Gandhi APRN - DIRECTOR OF RESEARCH AND DEVELOPMENT on 07/25/2024 at 6:07 AM [facility] Please note that this note was generated using a voice recognition dictation software. Although every effort was made to ensure the accuracy of this automated welding machine operator, some errors in welding machine operator may have occurred. Attested: I have discussed [...] Maguire MD - 07/24/2024 2:[address] [facility] Gastroenterology Progress Note Francine Hobson is [...] , TIBC , IRON , FERRITIN , [id number] , FOLATE , OCCULTBLD in the last [...] ice chips or popsicles Recommend transfer to [facility] where they have a dedicated IBD team including IBD GI, IBD surgeon and hat blocking operator Continue broad-spectrum antibiotics per ID discretion. [...] of your patient. Isabelle Gandhi, DIONISIO - DIRECTOR OF RESEARCH AND DEVELOPMENT on 07/24/2024 at 2:29 PM [facility] Please note that this note was generated using a voice recognition dictation software. Although every effort was made to ensure the accuracy of this automated welding machine operator, some errors in welding machine operator may have occurred. Attested: I have discussed [...] Malnutrition Assessment: Malnutrition Status: Severe malnutrition (07/21/24 0085) Context: Chronic Illness Findings of the 6 clinical characteristics of malnutrition: Energy Intake: 75% or less estimated energy requirements for 1 month or longer Weight Loss: Mild weight loss Body Fat Loss: Mild body fat loss Orbital, Buccal region Muscle Mass Loss: Severe muscle mass loss Clavicles (pectoralis & deltoids), Hand (interosseous), Calf (gastrocnemius) Fluid Accumulation: No fluid accumulation Programmer Strength: Not Performed Nutrition Assessment: TPN/IL continues. Discussed with RN. Labs reviewed - K 3.6 mmol/L. Pt remains on clear liquid diet - taking some liquids. Pt having watery BM's. Weight fluctuations noted. Meds include: Robson PRN. Noted discussion of plans for transfer to [facility]. Nutrition Related Findings: No edema. Watery [...] Measures: Height: 170.2 cm (5' 7.01 ) [place] Body Weight (IBW): 135 lbs (61 kg) [...] Used for Energy Requirements: Admission Energy (kcal/day): 8277-8798 kcals/day Weight Used for Protein Requirements: Admission Protein (g/day): 60-80 gm pro/day Method Used for Fluid Requirements: ml/Kg Fluid (ml/day): 35 mL/kg = 5356-0501 mL/day or per MD Nutrition Diagnosis: Severe [...] to determine Kayleigh Finch RD, LD Contact: [phone] * Dianne Agudelo MD - 07/24/2024 8:13 AM EST Images from the original note were not included. [facility] Office: [phone] Marco Delarosa DO, Dominic Gonzalez DO, Clifton [...] Valentin MD, Tony Valentin MD, Alix Acosta, DIRECTOR OF RESEARCH AND DEVELOPMENT, Shefali Hills DIRECTOR OF RESEARCH AND DEVELOPMENT, Ashley Baker, DIRECTOR OF RESEARCH AND DEVELOPMENT, Muna Brandon, CRES[employer], Neida Mars, DIRECTOR OF RESEARCH AND DEVELOPMENT, Jigna De Dios, DIRECTOR OF RESEARCH AND DEVELOPMENT, Angelina Peguero, DIRECTOR OF RESEARCH AND DEVELOPMENT, Adwoa Lei, DIRECTOR OF RESEARCH AND DEVELOPMENT, JOHN AsifC, JOHN TylerC, Jaz Castaneda, DIRECTOR OF RESEARCH AND DEVELOPMENT, Robert Huertas, DIRECTOR OF RESEARCH AND DEVELOPMENT, Vanessa Saleh, DIRECTOR OF RESEARCH AND DEVELOPMENT, Philly Mcgarry, DIRECTOR OF RESEARCH AND DEVELOPMENT, Josefina Higgins, DIRECTOR OF RESEARCH AND DEVELOPMENT, Chanel Mccullough, [facility], Ghassan Schwartz, DIRECTOR OF RESEARCH AND DEVELOPMENT, Lissett Root CNP, Lu Cooley, DIRECTOR OF RESEARCH AND DEVELOPMENT [facility] IN-PATIENT SERVICE [facility] Progress Note 07/24/2024 8:13 AM Name: Francine Hobson Acct: [id number] Room: [address] [place] [address] Day: 5 Admit Date: 07/19/2024 12:43 PM PCP: Dalia Apple DO Code Status: Full Code Subjective: C/C: Chief Complaint Patient presents with Abdominal Pain Vomiting Interval History Status: improved. Seen and examined Patient was started on clear liquid Per patient she is able to take it She had some nausea and Zofran was given Currently waiting on transfer to [facility] Blood pressure is soft Is on IV [...] after having used the following drugs: Marijuana ([place]). Family History: History reviewed. No pertinent family [...] , PHART , PH , POCPCO2 , AAQ7ZLT , PCO2 , POCPO2 , PO2ART , PO2 , POCHCO3 , ELV6ANC , HCO3 , NBEA , PBEA , BEART , BE , THGBART , THB , TXN7INP , ZMHM5PIH , V6TAZTSS , O2SAT , FIO2 Lab Results Component [...] tolerated Antibiotic per ID Pending transfer to [facility] Dietitian on board for severe protein malnutrition Continue with PT OT Dianne Agudelo MD 07/24/2024 8:13 AM * Vick Owens MD - 07/24/2024 7:45 AM EST [facility] - Progress Note Today's Date and Time: [...] with Dr Grover for infection. Please call [phone] for appointment . There are current plans for the patient to be transferred to the [facility] for considerationof surgery Medical Decision Making/Summary/Discussion:07/24/2024 IR [...] [facility], d/c with primary Infection Control Recommendations [place] Precautions Contact isolation Antimicrobial Stewardship Recommendations Simplification [...] She is planning on consultation with [facility] but has not done so yet. Her [...] BIOPSY performed by Maru Maguire MD at [facility] ENDO CT ABSCESS DRAINAGE 05/03/2024 CT ABSCESS DRAIN SUBCUTANEOUS 05/03/2024 Jose Manuel Torre MD [facility] CT SCAN TONSILLECTOMY AND ADENOIDECTOMY TUMOR [...] occass. Drug use: Not Currently Types: Marijuana ([place]) Comment: occassional Sexual activity: Yes Partners: Male Other Topics Concern Not on file Social History Narrative Not on file Social Determinants of Health Financial Resource Strain: Low Risk (11/24/2022) Received from [facility] Overall Financial Resource Strain (CARDIA) Difficulty [...] file Social Connections: Unknown (06/03/2021) Received from [facility] Frequency of Communication with Friends and Family: Not asked Frequency of Social Gatherings with Friends and Family: Not asked Intimate Partner Violence: Unknown (06/03/2021) Received from [facility] Intimate Partner Violence Fear of Current or [...] also noted in the pelvis. Medical Decision Summcs-Lxelwifu-Sgned: Results Procedure Component Value Units Date/Time Gastrointestinal Panel, Molecular [[id number]] Collected: 07/22/24 1259 Order Status: Completed Specimen: Stool Updated: 07/23/2414 Specimen Description .FECES Campylobacter PCR NEGATIVE: No [...] the findings and therapeutic plan with the resident/INSULATION BLOWER and we collaborated on medical decision making for this patient. [employer] * Eloy Alves DO - 07/24/2024 7:24 AM EST Physician Progress Note PATIENT: [facility]ON [facility] #: [id number] : 1985 ADMIT DATE: 07/19/2024 12:43 PM DISCH DATE: RESPONDING PROVIDER #: Eloy Alves DO QUERY TEXT: Pt admitted with Crohns disease and has Severe Malnutrition documented in Hand Profiler Progress notes. Please further clarify if you agree with the Hand Profiler assessment. The medical record reflects the following: Risk Factors: Crohn's disease with possible bowel obstruction Clinical Indicators: 38 yo F Admitted with c/o severe abdominal pain and nausea x past 4-5 days. Per IM Progress notes-'Malnutrition' documented.. Per Hand Profiler Consult / progress notes- Severe Malnutrition in [...] Bms yesterday. Is amenable to transfer to [facility] for higher level care. OBJECTIVE: VITALS: BP [...] Recommend evaluation by general surgery service at [facility]. This has been discussed with the patient's [...] of flatus. Is amenable to transfer to [facility] for higher level care. OBJECTIVE: VITALS: BP [...] Recommend evaluation by general surgery service at [facility]. This has been discussed with the patient's primary team. Justus Spencer MD 07/23/24 3:15 PM General Surgery PGY 4 * London Morales MD - 07/23/2024 3:10 PM EST Images from the original note were not included. [facility] Office: [phone] Marco Delarosa DO, Dominic Gonzalez DO, Clifton [...] Valentin MD, Tony Valentin MD, Alix Acosta, DIRECTOR OF RESEARCH AND DEVELOPMENT, Shefali Hills, DIRECTOR OF RESEARCH AND DEVELOPMENT, Ashley Baker, DIRECTOR OF RESEARCH AND DEVELOPMENT, Muna Brandon, DNP, Neida Mars, DIRECTOR OF RESEARCH AND DEVELOPMENT, Jigna De Dios, DIRECTOR OF RESEARCH AND DEVELOPMENT, Angelina Peguero, DIRECTOR OF RESEARCH AND DEVELOPMENT, Adwoa Lei, DIRECTOR OF RESEARCH AND DEVELOPMENT, Carmen Wray PAOliviaC, Kathy Apple PAOliviaC, Jaz Castaneda, DIRECTOR OF RESEARCH AND DEVELOPMENT, Robert Huertas, DIRECTOR OF RESEARCH AND DEVELOPMENT, Vanessa Saleh, DIRECTOR OF RESEARCH AND DEVELOPMENT, Philly Mcgarry, DIRECTOR OF RESEARCH AND DEVELOPMENT, Josefina Higgins, DIRECTOR OF RESEARCH AND DEVELOPMENT, Chanel Mccullough, PUTTY MIXER, Ghassan Schwartz, DIRECTOR OF RESEARCH AND DEVELOPMENT, Lissett Root, DIRECTOR OF RESEARCH AND DEVELOPMENT, Lu Cooley, DIRECTOR OF RESEARCH AND DEVELOPMENT [facility] IN-PATIENT SERVICE [facility] Progress Note 07/23/2024 3:10 PM Name: Francine Hobson Acct: [id number] Room: [facility]3/0243-01 Day: 4 Admit Date: 07/19/2024 12:43 PM PCP: Dalia Apple DO Code Status: Full Code Subjective: Patient seen examined bedside today. She was able to get NG tube last night with Ativan, but this was pulled out early in the morning. Did discuss with GI/surgery recommended transferring patient to [facility]. [facility] [...] , PHART , PH , POCPCO2 , QBQ5SBV , PCO2 , POCPO2 , PO2ART , PO2 , POCHCO3 , HGW1HAR , HCO3 , NBEA , PBEA , BEART , BE , THGBART , THB , PAR2QUY , JZUY6ARP , C1RSMKEQ , O2SAT , FIO2 Lab Results Component [...] care of IBD specialists. Transfer initiated with [facility], I did talk to their accepting provider who would like to view the scans prior to transfer. Asked roseline to send the images for review to CC. 2. Malnutrition -Hand Profiler consulted. Patient will need TPN. PICC line [...] Calf (gastrocnemius) Fluid Accumulation: No fluid accumulation Programmer Strength: Not Performed Nutrition Assessment: Per RN pt refused PN through peripheral line. Pt was getting centeral line placed currently. RN to get PPN from [facility] and start, will switch to new bag [...] Measures: Height: 170.2 cm (5' 7.01 ) [place] Body Weight (IBW): 135 lbs (61 kg) [...] Used for Energy Requirements: Admission Energy (kcal/day): 3388-8475 kcals/day Weight Used for Protein Requirements: Admission Protein (g/day): 60-80 gm pro/day Method Used for Fluid Requirements: ml/Kg Fluid (ml/day): 35 mL/kg = 1588-5044 mL/day or per MD Nutrition Diagnosis: Severe [...] 9:44 AM EST [facility] - Progress Note Today's Date and Time: [...] with Dr Grover for infection. Please call [phone] abdomen prior to [...] [facility], d/c with primary Infection Control Recommendations [place] Precautions Contact isolation Antimicrobial Stewardship Recommendations Simplification [...] She is planning on consultation [facility] but has not done so yet. Her [...] take small amounts of food Transfer to [facility] has been requested No new issues [...] BIOPSY performed by Maru Maguire MD at [facility] CT ABSCESS DRAINAGE 05/03/2024 CT ABSCESS DRAIN SUBCUTANEOUS 05/03/2024 Jose Manuel Torre MD [facility] CT SCAN TONSILLECTOMY AND ADENOIDECTOMY TUMOR [...] occass. Drug use: Not Currently Types: Marijuana ([place]) Comment: occassional Sexual activity: Yes Partners: Male Other Topics Concern Not on file Social History Narrative Not on file Social Determinants of Health Financial Resource Strain: Low Risk (11/24/2022) Received from [facility] Overall Financial Resource Strain (CARDIA) Difficulty [...] file Social Connections: Unknown (06/03/2021) Received from [facility] Social Connections Frequency of Communication with Friends and Family: Not asked Frequency of Social Gatherings with Friends and Family: Not asked Intimate Partner Violence: Unknown (06/03/2021) Received from [facility] Intimate Partner Violence Fear of Current or [...] also noted in the pelvis. Medical Decision Bfupou-Srsftqqo-Tikou: Results Procedure Component Value Units Date/Time Gastrointestinal Panel, Molecular [[id number]] Collected: 07/22/241258 Order Status: Sent Specimen: Stool [...] paged IM, Gen/Surg, GI, and spoke to housekeeper manager. * Maru Maguire MD - 07/23/2024 7:38 AM EST [facility] Francine Hobson is a [...] , TIBC , IRON , FERRITIN , [id number] , FOLATE , OCCULTBLD in the last [...] TPN -awaiting PICC line Recommend transfer to [facility] where they have a dedicated IBD team including IBD GI, IBD surgeon and hat blocking operator Continue broad-spectrum antibiotics per ID discretion. [...] care of your patient. Isabelle Stewart Gandhi, BACKUP SAWYER - DIRECTOR OF RESEARCH AND DEVELOPMENT on 07/23/2024 at 7:38 AM [facility] Please note that this note was generated using a voice recognition dictation software. Although every effort was made to ensure the accuracy of this automated welding machine operator, some errors in welding machine operator may have occurred. Attested: I have discussed [...] from the original note were not included. [facility] Office: [phone] Marco Delarosa DO, Dominic Gonzalez DO, Clifton Blanc DO, Froylan Snowden DO, Paula Jensen MD, Radha Greer MD, Nitish Parra MD, Maya Hernández MD, Porfirio García MD, Norma Smith MD, Tanya Mercado MD, Eloy Alves DO, Hedii Roche MD, Arthur Schroeder MD, Jose Manuel Delarosa DO, Shikha Pastrana MD, Obed Lilly DO, Rosangela Koehler MD, Alysa De Santiago MD, Dianne Agudelo MD, Judith Nicole MD, London Morales MD, Gamal Granger MD, Abby Salgado MD, Nereyda Lucas MD, Dru Shannon MD, Shahid Reddy MD, Ashley Schaffer DO, Cruzito Holloway MD, Eloy Valentin MD, Tony Valentin MD, Alix Acosta, DIRECTOR OF RESEARCH AND DEVELOPMENT, Shefali Hills, DIRECTOR OF RESEARCH AND DEVELOPMENT, Ashley Baker, DIRECTOR OF RESEARCH AND DEVELOPMENT, Muna Brandon, CRESENCIO, Neida Mars, DIRECTOR OF RESEARCH AND DEVELOPMENT, Jigna De Dios, DIRECTOR OF RESEARCH AND DEVELOPMENT, Angelina Peguero, DIRECTOR OF RESEARCH AND DEVELOPMENT, Adwoa Lei, DIRECTOR OF RESEARCH AND DEVELOPMENT, Carmen Wray, PA-C, Kathy Apple, PAOliviaC, Jaz Castaneda, DIRECTOR OF RESEARCH AND DEVELOPMENT, Robert Huertas, DIRECTOR OF RESEARCH AND DEVELOPMENT, Vanessa Saleh, DIRECTOR OF RESEARCH AND DEVELOPMENT, Philly Mcgarry, DIRECTOR OF RESEARCH AND DEVELOPMENT, Josefina Higgins, DIRECTOR OF RESEARCH AND DEVELOPMENT, Chanel Mccullough, PUTTY MIXER, Ghassan Schwartz, DIRECTOR OF RESEARCH AND DEVELOPMENT, Lissett Root, DIRECTOR OF RESEARCH AND DEVELOPMENT, Lu Cooley, DIRECTOR OF RESEARCH AND DEVELOPMENT [facility] IN-PATIENT SERVICE [facility] Progress Note 07/22/2024 3:00 PM Name: Francine Hobson Acct: [id number] Room: [address] [place] [address] Day: 3 Admit Date: 07/19/2024 12:43 PM PCP: Dalia Apple DO Code Status: Full Code Subjective: Patient seen examined bedside today. She was able to get NG tube last night with Ativan, but this was pulled out early in the morning. Did discuss with GI/surgery recommended transferring patient to [facility]. This was initiated this morning with [facility] access, awaiting callback. Brief History: This is [...] , PHART , PH , POCPCO2 , QIT9FBP , PCO2 , POCPO2 , PO2ART , PO2 , POCHCO3 , DJH9RDI , HCO3 , NBEA , PBEA , BEART , BE , THGBART , THB , AGC5USW , TINA2ILK , P4ZCBEKM , O2SAT , FIO2 Lab Results Component [...] care of IBD specialists. Transfer initiated with [facility] access, I did talk to their accepting provider who would like to view the scans prior to transfer. Asked [employer] to send the images for review to CC. 2. Malnutrition -Hand Profiler consulted. Patient will need TPN. PICC line [...] of flatus. Is amenable to transfer to [facility] for higher level care. OBJECTIVE: VITALS: BP [...] Recommend evaluation by general surgery service at [facility]. This has been discussed with the patient's primary team. Deja Zamora DO 07/22/24 11:46 AM General Surgery PGY 1 * Jaxson Scalnon MD - 07/22/2024 8:20 AM EST [facility] - Progress Note Today's Date and Time: [...] with Dr Grover for infection. Please call [phone] abdomen prior to [...] [facility], d/c with primary Infection Control Recommendations [place] Precautions Contact isolation Antimicrobial Stewardship Recommendations Simplification [...] She is planning on consultation [facility] but has not done so yet. Her [...] BIOPSY performed by Maru Maguire MD at [facility] CT ABSCESS DRAINAGE 05/03/2024 CT ABSCESS DRAIN SUBCUTANEOUS 05/03/2024 Jose Manuel Torre MD [facility] CT SCAN TONSILLECTOMY AND ADENOIDECTOMY TUMOR [...] occass. Drug use: Not Currently Types: Marijuana ([place]) Comment: occassional Sexual activity: Yes Partners: Male Other Topics Concern Not on file Social History Narrative Not on file Social Determinants of Health Financial Resource Strain: Low Risk (11/24/2022) Received from [facility] Overall Financial Resource Strain (CARDIA) Difficulty [...] file Social Connections: Unknown (06/03/2021) Received from [facility] Social Connections Frequency of Communication with Friends and Family: Not asked Frequency of Social Gatherings with Friends and Family: Not asked Intimate Partner Violence: Unknown (06/03/2021) Received from [facility] Intimate Partner Violence Fear of Current or [...] also noted in the pelvis. Medical Decision Kgpxbn-Auopqrnx-Vawca: Results Procedure Component Value Units Date/Time Gastrointestinal Panel, Molecular [[id number]] Order Status: Sent Specimen: Stool Medical Decision Making-Other: Note: Thank you for allowing us to participate in the care of this patient. Please call with questions. Marlene Rodas MD ATTESTATION: I have discussed the case, including pertinent history and exam findings with the medical insurance coding specialist.I have evaluated the History, physical findings and pictures of the patient and the price elements ofthe encounter have been performed by me. I have reviewed the laboratory data, other diagnostic studies and discussed them with the medical insurance coding specialist. I have updated the medical record where necessary. I agree with the assessment, plan and orders as documented by the medical insurance coding specialist and I have modified them as necessary. [...] small amount of flatus. Discussed transfer to [facility]. Objective: VITALS: BP 112/80 Pulse 72 Temp [...] abscess Recommendations: Recommend TPN Recommend transfer to [facility] where they have a dedicated IBD team including IBD GI, IBD surgeon and hat blocking operator Continue broad-spectrum antibiotics with Zosyn Continue [...] the care of your patient. Isabelle Gandhi, BACKUP SAWYER - DIRECTOR OF RESEARCH AND DEVELOPMENT on 07/22/2024 at 6:39 AM [facility] Please note that this note was generated using a voice recognition dictation software. Although every effort was made to ensure the accuracy of this automated welding machine operator, some errors in welding machine operator may have occurred. Attested: I have discussed [...] from the original note were not included. [facility] Office: [phone] Marco Delarosa DO, Dominic Gonzalez DO, Clifton [...] Valentin MD, Tony Valentin MD, Alix Acosta, DIRECTOR OF RESEARCH AND DEVELOPMENT, Shefali Hills, DIRECTOR OF RESEARCH AND DEVELOPMENT, Ashley Baker, DIRECTOR OF RESEARCH AND DEVELOPMENT, Muna Brandon, [facility], Neida Mars, DIRECTOR OF RESEARCH AND DEVELOPMENT, Jigna De Dios, DIRECTOR OF RESEARCH AND DEVELOPMENT, Angelina Peguero, DIRECTOR OF RESEARCH AND DEVELOPMENT, Adwoa Lei, DIRECTOR OF RESEARCH AND DEVELOPMENT, JOHN AsifC, JOHN TylerC, Jaz Castaneda, DIRECTOR OF RESEARCH AND DEVELOPMENT, Robert Huertas, DIRECTOR OF RESEARCH AND DEVELOPMENT, Vanessa Saleh, DIRECTOR OF RESEARCH AND DEVELOPMENT, Philly Mcgarry, DIRECTOR OF RESEARCH AND DEVELOPMENT, Josefina Higgins, DIRECTOR OF RESEARCH AND DEVELOPMENT, Chanel Mccullough, [facility], Ghassan Schwartz, DIRECTOR OF RESEARCH AND DEVELOPMENT, Lissett Root, DIRECTOR OF RESEARCH AND DEVELOPMENT, Lu Cooley, DIRECTOR OF RESEARCH AND DEVELOPMENT [facility] IN-PATIENT SERVICE [facility] Progress Note 07/21/2024 5:03 PM Name: Francine Hobson Acct: [id number] Room: [address] [place] [address] Day: 2 Admit Date: 07/19/2024 12:43 PM [...] , PHART , PH , POCPCO2 , SBF5MPI , PCO2 , POCPO2 , PO2ART , PO2 , POCHCO3 , UEA1FGV , HCO3 , NBEA , PBEA , BEART , BE , THGBART , THB , XTV9XUZ , UUXU4WMW , B5BTNSYK , O2SAT , FIO2 Lab Results Component [...] and read back by:WAQAS De Guzman 05/04/24 6835 Radiology: XR ABDOMEN (KUB) (SINGLE AP VIEW) [...] - Await General surgery evaluation. 2. Malnutrition -Hand Profiler consulted 3. Anxiety - Continue home Celexa Eloy Valentin MD 07/21/2024 5:03 PM * Elizabeth Marcelo MD - 07/21/2024 12:47 PM EST [facility] Progress Note Francine Hobson is a [...] contact me with any questions or concerns. [facility] Leroy De La Vega, BACKUP SAWYER - DIRECTOR OF RESEARCH AND DEVELOPMENT [phone] 07/21/2024 12:47 PM Estimated time of 20 [...] system. Dr. Maguire who is the primary machine silver stripper for this patient will be seeing her [...] and our colorectal service recommend evaluation by [facility]. Patient is afebrile with normal vital signs. [...] Recommend evaluation by general surgery service at [facility]. This has been discussed with the patient's primary team. I Dr. Katz saw and examined the patient. I have edited the above and agree with the above. Hemant Katz Colorectal Surgery * Manjit Grover MD - 07/21/2024 8:19 AM EST Images from the original note were not included. [facility] - Infectious diseases evaluation admission date 07/19/2024 [...] a month w CTAP Infection Control Recommendations [place] Precautions Contact Isolation Antimicrobial Stewardship Recommendations Simplification [...] but [facility]. She is planning on consultation [facility] but has not done so yet. Her [...] BIOPSY performed by Maru Maguire MD at [facility] CT ABSCESS DRAINAGE 05/03/2024 CT ABSCESS DRAIN SUBCUTANEOUS 05/03/2024 Jose Manuel Torre MD [facility] CT SCAN TONSILLECTOMY AND ADENOIDECTOMY TUMOR [...] occass. Drug use: Not Currently Types: Marijuana ([place]) Comment: occassional Sexual activity: Yes Partners: Male Other Topics Concern Not on file Social History Narrative Not on file Social Determinants of Health Financial Resource Strain: Low Risk (11/24/2022) Received from [facility] Overall Financial Resource Strain (CARDIA) Difficulty [...] file Social Connections: Unknown (06/03/2021) Received from [facility] Social [facility]ctions Frequency of Communication with Friends and Family: Not asked Frequency of Social Gatherings with Friends and Family: Not asked Intimate Partner Violence: Unknown (06/03/2021) Received from [facility] Intimate Partner Violence Fear of Current or [...] Grover MD Office: Perfect serve / office [phone] * Kelly Bergeron RN - 07/20/2024 3:54 [...] TO INFECTIOUS DISEASES Treatment Team: Treatment Team: Elyo Alves DO Daboul, Isam, MD Waterhouse, Shirley Ann, BACKUP SAWYER - Kelly Colon RN Aouad, Arlette T, [...] occass. Drug use: Not Currently Types: Marijuana ([place]) Comment: occassional Sexual activity: Yes Partners: Male Social Determinants of Health Financial Resource Strain: Low Risk (11/24/2022) Received from [facility] Overall Financial Resource Strain (CARDIA) Difficulty [...] No Social Connections: Unknown (06/03/2021) Received from [facility] Social Connections Frequency of Communication with Friends and Family: Not asked Frequency of Social Gatherings with Friends and Family: Not asked Intimate Partner Violence: Unknown (06/03/2021) Received from [facility] Intimate Partner Violence Fear of Current or [...] BIOPSY performed by Maru Maguire MD at [facility] ENDO CT ABSCESS DRAINAGE 05/03/2024 CT ABSCESS DRAIN SUBCUTANEOUS 05/03/2024 Jose Manuel Torre MD [facility] CT SCAN TONSILLECTOMY AND ADENOIDECTOMY TUMOR [...] from the original note were not included. [facility] Office: [phone] Marco Delarosa DO, Dominic Gonzalez DO, Clifton [...] Valentin MD, Tony Valentin MD, Alix Acosta, DIRECTOR OF RESEARCH AND DEVELOPMENT, Shefali Hills, DIRECTOR OF RESEARCH AND DEVELOPMENT, Ashley Baker, DIRECTOR OF RESEARCH AND DEVELOPMENT, Muna Brandon, CRESENCIO, Neida Mars, DIRECTOR OF RESEARCH AND DEVELOPMENT, Jigna De Dios, DIRECTOR OF RESEARCH AND DEVELOPMENT, Angelina Peguero, DIRECTOR OF RESEARCH AND DEVELOPMENT, Adwoa Lei, DIRECTOR OF RESEARCH AND DEVELOPMENT, Carmen Wray, PA-C, Kathy Apple, PA-C, Jaz Castaneda, DIRECTOR OF RESEARCH AND DEVELOPMENT, Robert Huertas, DIRECTOR OF RESEARCH AND DEVELOPMENT, Vanessa Saleh, DIRECTOR OF RESEARCH AND DEVELOPMENT, Philly Mcgarry, DIRECTOR OF RESEARCH AND DEVELOPMENT, Josefina Higgins, DIRECTOR OF RESEARCH AND DEVELOPMENT, Chanel Mccullough, [facility], Ghassan Schwartz, DIRECTOR OF RESEARCH AND DEVELOPMENT, Lissett Root, DIRECTOR OF RESEARCH AND DEVELOPMENT, Lu Cooley, DIRECTOR OF RESEARCH AND DEVELOPMENT [facility] IN-PATIENT SERVICE [facility] Progress Note 07/20/2024 8:51 AM Name: Francine Hobson Acct: [id number] Room: [address] [place] [address] Day: 1 Admit Date: 07/19/2024 12:43 PM [...] feel comfortable with NG tube unless her machine silver stripper is okay with it. Brief History: This [...] , PHART , PH , POCPCO2 , LVS2DSY , PCO2 , POCPO2 , PO2ART , PO2 , POCHCO3 , ZVN8NCC , HCO3 , NBEA , PBEA , BEART , BE , THGBART , THB , PGO8SYI , AECJ5CYD , S4JVAVLB , O2SAT , FIO2 Lab Results Component [...] of alcohol withdrawal at this time Malnutrition Hand Profiler consult Chronic problems Chronic anemia hemoglobin appears improved compared to baseline Continue home iron supplementations Anxiety Continue home Celexa Medical Decision Making: high Eloy Alves DO 07/20/2024 8:51 AM documented in this encounterBon [facility] Discharge instructions* Discharge Instructions* Sherly Amin [...] if your caregiver approves them. Only take zhra-spz-cdloplt or prescription medicines for pain, discomfort, or [...] 06/21/2006 Document Revised: 12/20/2012 Document Reviewed: 10/19/2012 [facility] Patient Information 2013 [employer]. Colonoscopy: What to Expect at Home Your [...] Where can you learn more? Go to [email or web address] and sign in to your Slide account. Enter E264 in the Search Health Information box to learn more about Colonoscopy: What to Expect at Home. If you do not have an account, please click on the Sign Up Now link. [employer]. Care instructions adapted under license by [employer]. This care instruction is for use with your licensed healthcare professional. If you have questions about a medical condition or this instruction, always ask your healthcare professional. [employer] disclaims any warranty or liability for your use of this information. Content Version: 9.9.285374; Last Revised: August 24, 2012 Call out patient scheduling for Abd CT scan at [phone] documented in this encounterBon [facility] History of Present illness Narrative* Demian Romero RN - 06/05/2024 8:50 AM EST Urine negative, results faxed to lab. documented in this encounterBon [facility] History of Present illness Narrative* Lauren Meier [...] lotion, powder, jewelry, piercings, perfume, makeup, nail french, hair accessories, or hair spray on the day of surgery. Wear loose comfortable clothing. Leave your valuables at home but bring a payment source for any after-surgery prescriptions you plan to fill at [facility]. Bring a storage case for any glasses/contacts. An adult who is responsible for you MUST drive you home and should be with you for the first 24 hours after surgery. The Day of Surgery: Arrive at [facility] at the time directed by your surgeon and check in at the desk. If you have a living will or healthcare power of health care attorney, please bring a copy. You will be taken to the pre-op holding area where you will be prepared for surgery. A physical assessment will be performed by a nurse practitioner or housetrailer servicer. Your IV will be started and you [...] understanding Colonoscopy 06/05/24 documented in this encounterBon [facility] Hospital course Narrative* Hardy Gamez MD - [...] 0 Comments: Labeling may look different. 25 nvk=0980 Units. Please double check dosages. omeprazole (PRILOSEC) [...] and follow up. documented in this encounterBon [facility] Hospital Discharge instructions* Discharge Instructions* Hardy Gamez [...] disease in office as well as your Installation Coordinator, primary care doctor for transitional care monitoring [...] List Diagnosis Code Crohn's disease with complication ([facility]) K50.919 Abdominal pain despite therapy for Crohn's disease ([facility]) K50.90 Crohn's colitis, other complication ([facility]) K50.118 Ileitis K52.9 Partial small bowel obstruction ([facility]) K56.600 Crohn's disease of colon with rectal bleeding ([facility]) K50.111 Intra-abdominal abscess ([facility]) K65.1 Depression, unspecified F32.A Generalized anxiety disorder with panic attacks F41.1, F41.0 Crohn's disease of colon with complication ([facility]) K50.119 Generalized abdominal pain R10.84 Crohn's disease [...] MENTAL STATUS:} IV Access: { WEN IV ACCESS:654872483} Nursing Mobility/ADLs: Walking {CHP DME ADLs:578806585} Transfer {CHP DME ADLs:844061175} Bathing {CHP DME ADLs:660767663} Dressing {CHP DME ADLs:799647551} Toileting {CHP DME ADLs:641997028} Feeding {CHP DME ADLs:065595738} Motorcycle Mechanic Apprentice {CHP DME ADLs:521655800} Med Delivery { WEN MED Delivery:412364320} Wound Care Documentation and Therapy: Elimination: Continence: Bowel: {YES / NO:} Bladder: {YES / NO:} Urinary Catheter: {Urinary Catheter:624899494} Colostomy/Ileostomy/Ileal Conduit: {YES / NO:} Date of Last BM: Intake/Output Summary (Last 24 hours) at 05/09/2024 1654 Last data filed at 05/08/2024 1819 Gross per 24 hour Intake 300 ml Output -- Net 300 ml I/O last 3 completed shifts: In: 1368.5 [P.O.:300; I.V.:504.2; IV Piggyback:564.3] Out: - Safety Concerns: { WEN Safety Concerns:658304564} Impairments/Disabilities: { WEN Impairments/Disabilities:849669466} Nutrition Therapy: Current Nutrition Therapy: { WEN Diet List:667448050} Routes of Feeding: {[facility] DME Other Feedings:090994913} Liquids: {Utilization Review Rn liquid thickness:91304} Daily Fluid Restriction: {CHP DME Yes amt example:515994581} Last Modified Barium Swallow with Video (Video Swallowing Test): {Done Not Done Date:} Treatments at the Time of Hospital Discharge: Respiratory Treatments: Oxygen Therapy: {Therapy; copd oxygen:82975} Ventilator: { CC Vent List:681627403} Rehab Therapies: {THERAPEUTIC INTERVENTION:9566020766} Weight Bearing Status/Restrictions: {[facility] Weight Bearin} Other Medical Equipment (for information only, NOT a DME order): {EQUIPMENT:116638387} Other Treatments: Patient's personal belongings (please select all that are sent with patient): {[facility] DME Belongings:356558304} RN SIGNATURE: {Esignature:[id number]} CASE MANAGEMENT/SOCIAL WORK SECTION Inpatient Status Date: Readmission Risk Assessment Score: Readmission Risk Risk of Unplanned Readmission: 15 Discharging to Facility/ Agency Name: Address: Phone: Fax: Dialysis Facility (if applicable) Name: Address: Dialysis Schedule: Phone: Fax: Crab Picker/Recruiter Account Manager signature: {Esignature:784110218} PHYSICIAN SECTION Prognosis: {Prognosis:7600773202} Condition at Discharge: { Patient Condition:154615191} Rehab Potential (if transferring to Rehab): {Prognosis:8152453946} Recommended Labs or Other Treatments After Discharge: Physician Certification: I certify the above information and transfer of Francine Hobson is necessary for the continuing treatment of the diagnosis listed and that she requires {Admit to Appropriate Level of Care:81022} for {GREATER/LESS:474421568} 30 days. Update Admission H&P: {CHP DME Changes in HandP:332357874} PHYSICIAN SIGNATURE: {Esignature:780430702} documented [facility] History of Present illness Narrative* Jaxson Scanlon MD - 05/09/2024 9:54 AM EST Images from the original note were not included. [facility] - Progress Note Today's Date and Time: [...] with Dr Scanlon for infection. Please call [phone] for appointment Medical Decision Making/Summary/Discussion:05/09/2024 Chron's GI holding off steroids till abscess improves - await ID clearance Pelvic abscess: CT 05/06 shows persistent multiloculated pelvic abscess No surgical intervention at this time. On zosyn Infection Control Recommendations [place] Precautions Antimicrobial Stewardship Recommendations Simplification of therapy [...] DRAIN SUBCUTANEOUS 05/03/2024 Jose Manuel Torre MD [facility] CT SCAN TONSILLECTOMY AND ADENOIDECTOMY TUMOR [...] Comment: occass. Drug use: Yes Types: Marijuana ([place]) Sexual activity: Yes Partners: Male Other Topics Concern Not on file Social History Narrative Not on file Social Determinants of Health Financial Resource Strain: Low Risk (11/24/2022) Received from [facility] Overall Financial Resource Strain (CARDIA) Difficulty [...] file Social Connections: Unknown (06/03/2021) Received from [facility] Social Connections Frequency of Communication with Friends and Family: Not asked Frequency of Social Gatherings with Friends and Family: Not asked Intimate Partner Violence: Unknown (06/03/2021) Received from [facility] Intimate Partner Violence Fear of Current or [...] ordered and supervised by the attending withphysician jnzn-sl-olgv monitoring. Medications were provided and recorded by Radiology nurses. DOSE: DOSE/DLP: 351.91 mGy-cm Dose modulation, iterative reconstruction, and/or weight based adjustment of the mA/kV was utilized to reduce the radiation dose to as low as reasonably achievable. TECHNIQUE/PROCEDURE DETAILS: Informed consent was obtained after a detailed explanation of the procedure including risks. [place] protocol was followed. Sterile gown, masks, hats, and gloves utilized for maximal sterile barrier. The patient was placed in the prone position on the CT couch. A silo painter scan was performed of the pelvis. The [...] utilized for local anesthetic. 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 Medical Decision Sbnqam-Sbuyjmdi-Pwcmi: Results Procedure Component Value Units Date/Time C DIFF TOXIN/ANTIGEN [[id number]] Collected: 05/07/24 1425 Order Status: Completed Specimen: Stool Updated: 05/08/24 0940 Specimen Description .FECES C DIFF AG + TOXIN NEGATIVE Comment: No C. difficile antigen and Toxin Detected. Gastrointestinal Panel, Molecular [[id number]] Collected: 05/07/24 1145 Order Status: Sent Specimen: Stool Updated: 05/07/24 1145 C DIFF TOXIN/ANTIGEN [[id number]] Order Status: No result Specimen: Stool C DIFF TOXIN/ANTIGEN [[id number]] Order Status: Canceled Specimen: Stool Culture, Body Fluid (with Gram Stain) [[id number]] (Abnormal) Collected: 05/03/24 1805 Order Status: Completed [...] De Guzman 05/04/24 1750 C DIFF TOXIN/ANTIGEN [[id number]] Order Status: No result Specimen: Stool Culture, Blood 1 [[id number]] Collected: 05/01/24 1617 Order Status: Completed Specimen: Blood Updated: 05/06/24 163 Specimen Description .BLOOD Special Requests RAC 5ML Culture NO GROWTH 5 DAYS Culture, Blood 1 [[id number]] Collected: 05/01/24 1550 Order Status: Completed Specimen: [...] history and exam findings with the medical insurance coding specialist.I have evaluated the History, physical findings and pictures of the patient and the price elements ofthe encounter have been performed by me. I have reviewed the laboratory data, other diagnostic studies and discussed them with the medical insurance coding specialist. I have updated the medical record where necessary. I agree with the assessment, plan and orders as documented by the medical insurance coding specialist and I have modified them as necessary. [...] treatment with Zosyn Discussed with nursing Staff, associate media planner Dr Mercado Infection Control and Prevention measures reviewed Lilburn precaution All prior entries were reviewed Colorectal surgery and internal medicine notes reviewed Administer medications as ordered Prognosis: Guarded Discharge planning reviewed Follow up as outpatient. Jaxson Scanlon MD. 05/09/2024, 9:54 AM Pager: - Office: * Hardy Gamez MD - 05/09/2024 9:11 AM EST Images from the original note were not included. [facility] Office: [phone] Marco Delarosa DO, Dominic Gonzalez DO, Clifton [...] CNP, Lissett Root CNP, Lu Cooley CNP [facility] IN-PATIENT SERVICE [facility] Progress Note 05/09/2024 9:11 AM Name: Francine Hobson Acct: [id number] Room: [address] [place] [address] Day: 8 Admit Date: 05/01/2024 2:13 PM [...] She reports current drug use. Drug: Marijuana ([place]). Family History: History reviewed. No pertinent family [...] results for input(s): LABALBU , LABA1C , I2EXZWI , FT4 , TSH , AST , ALT , LDH , GGT , ALKPHOS , BILITOT , BILIDIR , AMMONIA , AMYLASE , LIPASE , LACTATE , CHOL , HDL , CHOLHDLRATIO , TRIG , VLDL , CZB05DH , PHENYTOIN , PHENYF , URICACID , POCGLU in the last 72 hours. Invalid input(s): PROT , N6EEVPA , LABGGT , LDLCHOLESTEROL ABG:No results found for: POCPH , PHART , PH , POCPCO2 , YZD9NMB , PCO2 , POCPO2 , PO2ART , PO2 , POCHCO3 , RII7DSW , HCO3 , NBEA , PBEA , BEART , BE , THGBART , THB , BYO0JWU , AZLC6CTZ , L3LSKAHT , O2SAT , FIO2 Lab Results Component [...] and read back by:WAQAS De Guzman 05/04/24 0930 Radiology: CT ABDOMEN PELVIS WO CONTRAST Additional [...] 9:11 AM * Leroy De La Vega BACKUP SAWYER - DIRECTOR OF RESEARCH AND DEVELOPMENT - 05/09/2024 8:03 AM EST [facility] Gastroenterology Progress Note Francine Hobson is a [...] 0603 TIBC -- 179* FERRITIN -- 163* [id number] 176* -- FOLATE 17.7 -- BMP: No [...] contact me with any questions or concerns. [facility], [facility] - [facility] [phone] 05/09/2024 8:03 AM Estimated time of 15 [...] Mejia MD - 05/08/2024 2:21 PM EST [facility] Progress Note Francine Hobson is a [...] 0603 TIBC -- 179* FERRITIN -- 163* [id number] 176* -- FOLATE 17.7 -- BMP: Recent [...] contact me with any questions or concerns. [facility] Leroy De La Vega, [employer]UP [employer]ER - DIRECTOR OF RESEARCH AND DEVELOPMENT [phone] 05/08/2024 2:21 PM Estimated time of 36 [...] were not included. [facility] - Progress Note Today's Date and Time: [...] with Dr Scanlon for infection. Please call [phone] for appointment Medical Decision Making/Summary/Discussion:05/08/2024 Chron's GI holding off steroids till abscess improves - await ID clearance Pelvic abscess: CT 05/06 shows persistent multiloculated pelvic abscess No surgical intervention at this time. On zosyn Infection Control Recommendations [place] Precautions Antimicrobial Stewardship Recommendations Simplification of therapy [...] Comment: occass. Drug use: Yes Types: Marijuana ([place]) Sexual activity: Yes Partners: Male Other Topics Concern Not on file Social History Narrative Not on file Social Determinants of Health Financial Resource Strain: Low Risk (11/24/2022) Received from [facility] Overall Financial Resource Strain (CARDIA) Difficulty [...] file Social Connections: Unknown (06/03/2021) Received from [facility] Social Connections Frequency of Communication with Friends and Family: Not asked Frequency of Social Gatherings with Friends and Family: Not asked Intimate Partner Violence: Unknown (06/03/2021) Received from [facility] Intimate Partner Violence Fear of Current or [...] ordered and supervised by the attending withphysician hiwb-mz-djec monitoring. Medications were provided and recorded by Radiology nurses. DOSE: DOSE/DLP: 351.91 mGy-cm Dose modulation, iterative reconstruction, and/or weight based adjustment of the mA/kV was utilized to reduce the radiation dose to as low as reasonably achievable. TECHNIQUE/PROCEDURE DETAILS: Informed consent was obtained after a detailed explanation of the procedure including risks. [place] protocol was followed. Sterile gown, masks, hats, and gloves utilized for maximal sterile barrier. The patient was placed in the prone position on the CT couch. A silo painter scan was performed of the pelvis. The [...] utilized for local anesthetic. 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 Medical Decision Kfmdep-Xjoasukc-Vawyu: Results Procedure Component Value Units Date/Time C DIFF TOXIN/ANTIGEN [[id number]] Collected: 05/07/24 1425 Order Status: Completed Specimen: Stool Updated: 05/08/24 0940 Specimen Description .FECES C DIFF AG + TOXIN NEGATIVE Comment: No C. difficile antigen and Toxin Detected. Gastrointestinal Panel, Molecular [[id number]] Collected: 05/07/24 1145 Order Status: Sent Specimen: Stool Updated: 05/07/24 1145 C DIFF TOXIN/ANTIGEN [[id number]] Order Status: No result Specimen: Stool C DIFF TOXIN/ANTIGEN [[id number]] Order Status: Canceled Specimen: Stool Culture, Body Fluid (with Gram Stain) [[id number]] (Abnormal) Collected: 05/03/24 1805 Order Status: Completed [...] De Guzman 05/04/24 1750 C DIFF TOXIN/ANTIGEN [[id number]] Order Status: No result Specimen: Stool Culture, Blood 1 [[id number]] Collected: 05/01/24 1617 Order Status: Completed Specimen: Blood Updated: 05/06/24 1636 Specimen Description .BLOOD Special Requests RAC 5ML Culture NO GROWTH 5 DAYS Culture, Blood 1 [[id number]] Collected: 05/01/24 1550 Order Status: Completed Specimen: [...] history and exam findings with the medical insurance coding specialist.I have evaluated the History, physical findings and pictures of the patient and the price elements ofthe encounter have been performed by me. I have reviewed the laboratory data, other diagnostic studies and discussed them with the medical insurance coding specialist. I have updated the medical record where necessary. I agree with the assessment, plan and orders as documented by the medical insurance coding specialist and I have modified them as necessary. [...] treatment with Zosyn Discussed with nursing Staff, associate media planner Dr Mercado Infection Control and Prevention measures reviewed [place] precaution All prior entries were reviewed Colorectal surgery and internal medicine notes reviewed Administer medications as ordered Prognosis: Guarded Discharge planning reviewed Follow up as outpatient. Jaxson Scanlon MD. 05/08/2024, 10:59 AM Pager: - Office: * Muna Brandon APRN - INSULATION BLOWER - 05/08/2024 8:45 AM EST Images from the original note were not included. [facility] Office: [phone] Marco Delarosa DO, Dominic Gonzalez DO, Clifton [...] Ashley Schaffer DO, Cruzito Holloway MD, Alix Acosta,DIRECTOR OF RESEARCH AND DEVELOPMENT, Shefali Hills, DIRECTOR OF RESEARCH AND DEVELOPMENT, Ashley Baker, DIRECTOR OF RESEARCH AND DEVELOPMENT, Muna Brandon, CRESENCIO, Neida Mars, DIRECTOR OF RESEARCH AND DEVELOPMENT, Jigna De Dios, DIRECTOR OF RESEARCH AND DEVELOPMENT, Angelina Peguero, DIRECTOR OF RESEARCH AND DEVELOPMENT, Adwoa Lei, DIRECTOR OF RESEARCH AND DEVELOPMENT, Carmen Wray PA-C, Kathy Apple PA-C, Jaz Castaneda,DIRECTOR OF RESEARCH AND DEVELOPMENT, Robert Huertas, DIRECTOR OF RESEARCH AND DEVELOPMENT, Vanessa Saleh, DIRECTOR OF RESEARCH AND DEVELOPMENT, Josefina Higgins, DIRECTOR OF RESEARCH AND DEVELOPMENT, Lissett Root, DIRECTOR OF RESEARCH AND DEVELOPMENT, Lu Cooley, DIRECTOR OF RESEARCH AND DEVELOPMENT [facility] IN-PATIENT SERVICE [facility] Progress Note 05/08/2024 8:52 AM Name: Francine Hobson Acct: [id number] Room: [facility]/0343-02 Day: 7 Admit Date: 05/01/2024 2:13 PM [...] She reports current drug use. Drug: Marijuana ([place]). Family History: History reviewed. No pertinent family [...] results for input(s): LABALBU , LABA1C , W7RICWC , FT4 , TSH , AST , ALT , LDH , GGT , ALKPHOS , BILITOT , BILIDIR , AMMONIA , AMYLASE , LIPASE , LACTATE , CHOL , HDL , CHOLHDLRATIO , TRIG , VLDL , GYM34GM , PHENYTOIN , PHENYF , URICACID , POCGLU in the last 72 hours. Invalid input(s): PROT , V0MYAZC , LABGGT , LDLCHOLESTEROL ABG:No results found for: POCPH , PHART , PH , POCPCO2 , ODH6TYP , PCO2 , POCPO2 , PO2ART , PO2 , POCHCO3 , TJL0KOL , HCO3 , NBEA , PBEA , BEART , BE , THGBART , THB , YRK8VLN , VWKT1UBQ , I9QQULHE , O2SAT , FIO2 Lab Results Component [...] and read back by:WAQAS De Guzman 05/04/24 9238 Radiology: CT ABDOMEN PELVIS WO CONTRAST Additional [...] ordered and supervised by the attending withphysician ixse-xo-lynv monitoring. Medications were provided and recorded by Radiology nurses. DOSE: DOSE/DLP: 351.91 mGy-cm Dose modulation, iterative reconstruction, and/or weight based adjustment of the mA/kV was utilized to reduce the radiation dose to as low as reasonably achievable. TECHNIQUE/PROCEDURE DETAILS: Informed consent was obtained after a detailed explanation of the procedure including risks. [place] protocol was followed. Sterile gown, masks, hats, and gloves utilized for maximal sterile barrier. The patient was placed in the prone position on the CT couch. A silo painter scan was performed of the pelvis. The [...] utilized for local anesthetic. A 5 French9 Doktorburada.comeh needle sheath was advanced under intermittent CT [...] Mejia MD - 05/07/2024 3:16 PM EST [facility] Gastroenterology Progress Note Francine Hobson is a [...] results for input(s): TIBC , FERRITIN , CMDDKIYC99 , FOLATE , OCCULTBLD in the last [...] contact me with any questions or concerns. [facility] Leroy De La Vega, [employer] - DIRECTOR OF RESEARCH AND DEVELOPMENT [phone] 05/07/2024 3:16 PM Estimated time of 35 [...] dr mercado who has already spoken with supervisor cigar processing Rukhsana about necessity for cdiff to be [...] ordered and supervised by the attending withphysician udnd-rf-ynjx monitoring. Medications were provided and recorded by Radiology nurses. DOSE: DOSE/DLP: 351.91 mGy-cm Dose modulation, iterative reconstruction, and/or weight based adjustment of the mA/kV was utilized to reduce the radiation dose to as low as reasonably achievable. TECHNIQUE/PROCEDURE DETAILS: Informed consent was obtained after a detailed explanation of the procedure including risks. [place] protocol was followed. Sterile gown, masks, hats, and gloves utilized for maximal sterile barrier. The patient was placed in the prone position on the CT couch. A silo painter scan was performed of the pelvis. The [...] utilized for local anesthetic. A 5 French9 Doktorburada.comeh needle sheath was advanced under intermittent CT [...] Surgery * Jigna De Dios APRN - INSULATION BLOWER - 05/07/2024 7:44 AM EST Images from the original note were not included. [facility] Office: [phone] Marco Delarosa DO, Dominic Gonzalez DO, Clifton [...] Ashley Schaffer DO, Cruzito Holloway MD, Alix Acosta,DIRECTOR OF RESEARCH AND DEVELOPMENT, Shefali Hills DIRECTOR OF RESEARCH AND DEVELOPMENT, Ashley Baker DIRECTOR OF RESEARCH AND DEVELOPMENT, Muna Brandon DNP, Neida Mars, DIRECTOR OF RESEARCH AND DEVELOPMENT, Jigna De Dios, DIRECTOR OF RESEARCH AND DEVELOPMENT, Angelina Peguero, DIRECTOR OF RESEARCH AND DEVELOPMENT, Adwoa Lei, DIRECTOR OF RESEARCH AND DEVELOPMENT, Carmen Wray PAOliviaC, Kathy Apple PAOliviaC, Jaz Castaneda,DIRECTOR OF RESEARCH AND DEVELOPMENT, Robert Huertas, DIRECTOR OF RESEARCH AND DEVELOPMENT, Vanessa Saleh, DIRECTOR OF RESEARCH AND DEVELOPMENT, Josefina Higgins, DIRECTOR OF RESEARCH AND DEVELOPMENT, Lissett Root, DIRECTOR OF RESEARCH AND DEVELOPMENT, Lu Cooley, DIRECTOR OF RESEARCH AND DEVELOPMENT [facility] IN-PATIENT SERVICE [facility] Progress Note 05/07/2024 7:44 AM Name: Francine Hobson Acct: [id number] Room: 0343/0343-02 IP Day: 6 Admit Date: [...] She reports current drug use. Drug: Marijuana ([place]). Family History: History reviewed. No pertinent family [...] results for input(s): LABALBU , LABA1C , J3YQEHH , FT4 , TSH , AST , ALT , LDH , GGT , ALKPHOS , BILITOT , BILIDIR , AMMONIA , AMYLASE , LIPASE , LACTATE , CHOL , HDL , CHOLHDLRATIO , TRIG , VLDL , PJV81RS , PHENYTOIN , PHENYF , URICACID , POCGLU in the last 72 hours. Invalid input(s): PROT , F1IFYXK , LABGGT , LDLCHOLESTEROL ABG:No results found for: POCPH , PHART , PH , POCPCO2 , EFS7OQU , PCO2 , POCPO2 , PO2ART , PO2 , POCHCO3 , QTJ2ENJ , HCO3 , NBEA , PBEA , BEART , BE , THGBART , THB , QRK2ZTT , LSSE9VJZ , V6UFGZBY , O2SAT , FIO2 Lab Results Component [...] as tolerated. JIGNA DE DIOS APRN - INSULATION BLOWER 05/07/2024 7:44 AM Associated attestation - Tanya [...] ordered and supervised by the attending withphysician qmoh-hd-kfvr monitoring. Medications were provided and recorded by Radiology nurses. DOSE: DOSE/DLP: 351.91 mGy-cm Dose modulation, iterative reconstruction, and/or weight based adjustment of the mA/kV was utilized to reduce the radiation dose to as low as reasonably achievable. TECHNIQUE/PROCEDURE DETAILS: Informed consent was obtained after a detailed explanation of the procedure including risks. [place] protocol was followed. Sterile gown, masks, hats, and gloves utilized for maximal sterile barrier. The patient was placed in the prone position on the CT couch. A silo painter scan was performed of the pelvis. The [...] utilized for local anesthetic. A 5 French9 Doktorburada.comeh needle sheath was advanced under intermittent CT [...] Mejia MD - 05/06/2024 11:29 AM EDT [facility] Progress Note Francine Hobson is a [...] results for input(s): TIBC , FERRITIN , OVNJTWJL28 , FOLATE , OCCULTBLD in the last [...] contact me with any questions or concerns. [facility], [facility] [facility] - [facility] [phone] 05/06/2024 11:29 AM Estimated time of 35 [...] were not included. [facility] - Infectious diseases evaluation admission date 05/01/2024 [...] cx Disc w medicine Infection Control Recommendations [place] Precautions Contact Isolation Antimicrobial Stewardship Recommendations Simplification [...] Comment: occass. Drug use: Yes Types: Marijuana ([place]) Sexual activity: Yes Partners: Male Other Topics Concern Not on file Social History Narrative Not on file Social Determinants of Health Financial Resource Strain: Low Risk (11/24/2022) Received from [facility] Overall Financial Resource Strain (CARDIA) Difficulty [...] file Social Connections: Unknown (06/03/2021) Received from [facility] Social Connections Frequency of Communication with Friends and Family: Not asked Frequency of Social Gatherings with Friends and Family: Not asked Intimate Partner Violence: Unknown (06/03/2021) Received from [facility] Intimate Partner Violence Fear of Current or [...] Grover MD Office: Perfect serve / office [phone] * Tanya Mercado MD - 05/06/2024 9:37 [...] nausea * Jigna De Dios, DIONISIO - INSULATION BLOWER - 05/06/2024 7:35 AM EDT Images from the original note were not included. [facility] Office: [phone] Marco Delarosa DO, Dominic Gonzalez DO, Clifton [...] RONEL, Lissett Root, RONEL, Lu Cooley, RONEL [facility] IN-PATIENT SERVICE [facility] Progress Note 05/06/2024 7:35 AM Name: Francine Hobson Acct: [id number] Room: [address] [place] [address] Day: 5 Admit Date: 05/01/2024 2:13 PM [...] She reports current drug use. Drug: Marijuana ([place]). Family History: History reviewed. No pertinent family [...] results for input(s): LABALBU , LABA1C , Y5QCZMY , FT4 , TSH , AST , ALT , LDH , GGT , ALKPHOS , BILITOT , BILIDIR , AMMONIA , AMYLASE , LIPASE , LACTATE , CHOL , HDL , CHOLHDLRATIO , TRIG , VLDL , VFT81DR , PHENYTOIN , PHENYF , URICACID , POCGLU in the last 72 hours. Invalid input(s): PROT , R3EVCQF , LABGGT , LDLCHOLESTEROL ABG:No results found for: POCPH , PHART , PH , POCPCO2 , GOZ8TGF , PCO2 , POCPO2 , PO2ART , PO2 , POCHCO3 , UTJ4EHZ , HCO3 , NBEA , PBEA , BEART , BE , THGBART , THB , VBZ0JOY , YDJM7TXL , J3TNIIWL , O2SAT , FIO2 Lab Results Component Value Date/Time SPECIAL Site: Body Fluid 05/03/2024 06:05 PM Lab Results Component Value Date/Time CULTURE POSITIVE Fluid Culture 05/03/2024 06:05 PM CULTURE 05/03/2024 06:05 PM DIRECT GRAM STAIN FROM BOTTLE: GRAM POSITIVE COCCI IN CHAINS CULTURE 05/03/2024 06:05 PM (NOTE) Direct Gram Stain from bottle result called to and read back by:WAQAS De Guzman 05/04/24 4840 Radiology: CT ABSCESS DRAINAGE Result Date: 05/04/2024 [...] mg/dL Estimated Daily Nutrient Needs: Energy (kcal): 8945-4669 kcal/d per 25-30 kcal/kg Weight Used for [...] determine Maryam Abdul MS, RDN, LDN Contact: [phone] * Leroy De La Vega APRN - RONEL - 05/05/2024 11:10 AM EDT [facility] Progress Note Francine Hobson is a [...] results for input(s): TIBC , FERRITIN , VPYIWCEE26 , FOLATE , OCCULTBLD in the last [...] contact me with any questions or concerns. [facility] Leroy De La Vega APRN - DIRECTOR OF RESEARCH AND DEVELOPMENT [phone] 05/05/2024 11:10 AM Estimated time of mins [...] MD * Jigna De Dios APRN - INSULATION BLOWER - 05/05/2024 7:51 AM EDT Images from the original note were not included. [facility] Office: [phone] Marco Delarosa DO, Dominic Gonzalez DO, Clifton [...] MD, Ashley Schaffer, DO, Cruzito Holloway MD, Alix Acosta CNP, Shefali Hills CNP, Ashley Baker CNP, Muna Brandon DNP, Neida Mars, DIRECTOR OF RESEARCH AND DEVELOPMENT, Jigna De Dios, DIRECTOR OF RESEARCH AND DEVELOPMENT, Angelina Peguero, DIRECTOR OF RESEARCH AND DEVELOPMENT, Adwoa Lei, DIRECTOR OF RESEARCH AND DEVELOPMENT, Carmen Wray, JOHNC, JOHN TylerC, Jaz Castaneda,RONEL, Robert Huertas CNP, Vanessa Saleh, DIRECTOR OF RESEARCH AND DEVELOPMENT, Josefina Higgins, DIRECTOR OF RESEARCH AND DEVELOPMENT, Lissett Root, DIRECTOR OF RESEARCH AND DEVELOPMENT, Lu Cooley, DIRECTOR OF RESEARCH AND DEVELOPMENT [facility] IN-PATIENT SERVICE [facility] Progress Note 05/05/2024 7:52 AM Name: Francine Hobson Acct: [id number] Room: [facility] [place] [address] Day: 4 Admit Date: 05/01/2024 2:13 PM [...] She reports current drug use. Drug: Marijuana ([place]). Family History: History reviewed. No pertinent family [...] results for input(s): LABALBU , LABA1C , A6EJQZT , FT4 , TSH , AST , ALT , LDH , GGT , ALKPHOS , BILITOT , BILIDIR , AMMONIA , AMYLASE , LIPASE , LACTATE , CHOL , HDL , CHOLHDLRATIO , TRIG , VLDL , LGI12IL , PHENYTOIN , PHENYF , URICACID , POCGLU in the last 72 hours. Invalid input(s): PROT , C7TMXSA , LABGGT , LDLCHOLESTEROL ABG:No results found for: POCPH , PHART , PH , POCPCO2 , MTZ6NTF , PCO2 , POCPO2 , PO2ART , PO2 , POCHCO3 , PEL2UUW , HCO3 , NBEA , PBEA , BEART , BE , THGBART , THB , AOK7SMI , TIZN6GTN , C2QOQPRE , O2SAT , FIO2 Lab Results Component Value Date/Time SPECIAL Site: Body Fluid 05/03/2024 06:05 PM Lab Results Component Value Date/Time CULTURE POSITIVE Blood Culture (A) 05/03/2024 06:05 PM CULTURE 05/03/2024 06:05 PM DIRECT GRAM STAIN FROM BOTTLE: GRAM POSITIVE COCCI IN CHAINS CULTURE 05/03/2024 06:05 PM (NOTE) Direct Gram Stain from bottle result called to and read back by:WAQAS De Guzman 05/04/24 4414 Radiology: CT ABSCESS DRAINAGE Result Date: 05/04/2024 [...] ordered and supervised by the attending withphysician udsf-pl-sfmz monitoring. Medications were provided and recorded by Radiology nurses. DOSE: DOSE/DLP: 351.91 mGy-cm Dose modulation, iterative reconstruction, and/or weight based adjustment of the mA/kV was utilized to reduce the radiation dose to as low as reasonably achievable. TECHNIQUE/PROCEDURE DETAILS: Informed consent was obtained after a detailed explanation of the procedure including risks. Lilburn protocol was followed. Sterile gown, masks, hats, and gloves utilized for maximal sterile barrier. The patient was placed in the prone position on the CT couch. A silo painter scan was performed of the pelvis. The [...] utilized for local anesthetic. A 5 French9 Doktorburada.comeh needle sheath was advanced under intermittent CT [...] * Leroy De La Vega, DIONISIO - DIRECTOR OF RESEARCH AND DEVELOPMENT - 05/04/2024 9:57 AM EDT [facility] Gastroenterology Progress Note Francine Hobson is a [...] results for input(s): TIBC , FERRITIN , WECQMGII34 , FOLATE , OCCULTBLD in the last [...] contact me with any questions or concerns. [facility] Gastroenterology Leroy De La Vega APRN - DIRECTOR OF RESEARCH AND DEVELOPMENT [phone] 05/04/2024 9:58 AM Estimated time of mins [...] MD * Jigna De Dios, DIONISIO - INSULATION BLOWER - 05/04/2024 7:52 AM EDT Images from the original note were not included. [facility] Office: [phone] Marco Delarosa DO, Dominic Gonzalez DO, Clifton [...] Ashley Schaffer DO, Cruzito Holloway MD, Alix Acosta,DIRECTOR OF RESEARCH AND DEVELOPMENT, Shefali Hills, DIRECTOR OF RESEARCH AND DEVELOPMENT, Ashley Baker, DIRECTOR OF RESEARCH AND DEVELOPMENT, Muna Brandon, CRESENCIO, Neida Mars, DIRECTOR OF RESEARCH AND DEVELOPMENT, Jigna De Dios DIRECTOR OF RESEARCH AND DEVELOPMENT, Angelina Peguero DIRECTOR OF RESEARCH AND DEVELOPMENT, Adwoa Lei DIRECTOR OF RESEARCH AND DEVELOPMENT, Carmen Wray, PAOliviaC, JOHN TylerC, Jaz Castaneda,DIRECTOR OF RESEARCH AND DEVELOPMENT, Robert Huertas CNP, Vanessa Saleh CNP, Josefina Higgins DIRECTOR OF RESEARCH AND DEVELOPMENT, Lissett Root CNP, Lu Cooley, DIRECTOR OF RESEARCH AND DEVELOPMENT [facility] IN-PATIENT SERVICE [facility] Progress Note 05/04/2024 7:52 AM Name: rFancine Hobson Acct: [id number] Room: [address] [place] [address] Day: 3 Admit Date: 05/01/2024 2:13 PM [...] She reports current drug use. Drug: Marijuana ([place]). Family History: History reviewed. No pertinent family [...] , PHART , PH , POCPCO2 , LGV7NPP , PCO2 , POCPO2 , PO2ART , PO2 , POCHCO3 , FFP5HRK , HCO3 , NBEA , PBEA , BEART , BE , THGBART , THB , KMH2BVQ , HOGU1ASY , B2QTPUOB , O2SAT , FIO2 Lab Results Component [...] mass loss Fluid Accumulation: No fluid accumulation Programmer Strength: Not Performed Nutrition Assessment: Pt admit for intra-abdominal abscess. Seen for positive nutrition screen. Pt has PMH of crohn's disease. Per conversation with pt and visitor pt knows what foods she can tolerate and often will put herself on liquid diet when having flair ups. 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 Nutrition Related Findings: No edema. LBM 05/02, hypoactive bowel sounds. Labs: Na 134, Glu 60, Ca 7.9. Meds reviewed. Wound Type: None Current Nutrition Intake & Therapies: Average Meal Intake: NPO Average Supplements Intake: NPO Diet NPO Exceptions are: Ice Chips Anthropometric Measures: Height: 168.9 cm (5' 6.5 ) [place] Body Weight (IBW): 132 lbs (60 kg) Current Body Weight: 55.4 kg (122 lb 2.2 oz), 92.5 % IBW. Current BMI (kg/m2): 19.4 Usual Body Weight: 56.7 kg (125 lb) (X3 months) % Weight Change (Calculated): -2.3 BMI Categories: Normal Weight (BMI 18.5-24.9) Estimated Daily Nutrient Needs: Energy Requirements Based On: Kcal/kg Weight Used for Energy Requirements: Current Energy (kcal/day): 2488-7028 kcal/d per 25-30 kcal/kg Weight Used for [...] from the original note were not included. [facility] Office: [phone] Marco Delarosa DO, Dominic Gonzalez DO, Clifton [...] CNP, Jigna De Dios CNP, Angelina Peguero, DIRECTOR OF RESEARCH AND DEVELOPMENT, Adwoa Lei CNP, JOHN AsifC, JOHN TylerC, Jaz Castaneda CNP, Robert Huertas CNP, Vanessa Saleh CNP, Josefina Higgins CNP, Lissett Root, RONEL, Lu Cooley, DIRECTOR OF RESEARCH AND DEVELOPMENT [facility] IN-PATIENT SERVICE [facility] Progress Note 05/03/2024 2:32 PM Name: Francine Hobson Acct: [id number] Room: 0343/0343-02 IP Day: 2 Admit Date: [...] She reports current drug use. Drug: Marijuana ([place]). Family History: History reviewed. No pertinent family [...] , PHART , PH , POCPCO2 , TKP9VSD , PCO2 , POCPO2 , PO2ART , PO2 , POCHCO3 , BPJ9WWT , HCO3 , NBEA , PBEA , BEART , BE , THGBART , THB , LID8HRS , QBEI1NQM , J2OUTBUH , O2SAT , FIO2 Lab Results Component [...] MD 05/03/2024 2:32 PM * Obdulia Hagen, [facility] - 05/03/2024 9:55 AM EDT [facility] Pharmacokinetic Monitoring Service - [...] sodium chloride 0.9 % 250 mL IVPB (Hnvr8Onr) () Restarted 05/03/24 0435 750 mg New Bag 0409 750 mg New Bag 05/02/242006 750 mg New Bag 1303 750 mg New Bag 0404 vancomycin (VANCOCIN) 1,000 mg in sodium chloride 0.9 % 250 mL IVPB (Slgb1Yuo) (mg) 1,000 mg New Bag 05/01/24 1638 [...] you for the consult, Obdulia Hagen Pharm.D., [facility] 05/03/2024 9:55 AM * Isabelle Gandhi, BACKUP SAWYER - DIRECTOR OF RESEARCH AND DEVELOPMENT - 05/03/2024 6:[address] [facility] Gastroenterology Progress Note Francine Hobson is [...] , TIBC , IRON , FERRITIN , HVRNAXNC65 , FOLATE , OCCULTBLD in the last [...] the care of your patient. Isabelle Gandhi, BACKUP SAWYER - DIRECTOR OF RESEARCH AND DEVELOPMENT on 05/03/2024 at 6:44 AM [facility] Please note that this note was generated using a voice recognition dictation software. Although every effort was made to ensure the accuracy of this automated welding machine operator, some errors in welding machine operator may have occurred. Associated attestation - Maru [...] EDT Physician Progress Note PATIENT: FRANCINE HOBSON [facility] #: [id number] : 1985 ADMIT DATE: 05/01/2024 2:13 PM [...] from the original note were not included. [facility] Office: [phone] Marco Delarosa DO, Dominic Gonzalez DO, Clifton [...] MD, Gamal Granger MD, Abby Salgado MD, eNreyda Lucas MD, Dru Shannon MD, Shahid Reddy MD, Ashley Schaffer DO, Cruzito Holloway MD, Alix Acosta,DIRECTOR OF RESEARCH AND DEVELOPMENT, Shefali Hills CNP, Ashley Baker, DIRECTOR OF RESEARCH AND DEVELOPMENT, Muna Brandon, CRESENCIO, Neida Mars, DIRECTOR OF RESEARCH AND DEVELOPMENT, Jigna De Dios, DIRECTOR OF RESEARCH AND DEVELOPMENT, Angelina Peguero, DIRECTOR OF RESEARCH AND DEVELOPMENT, Adwoa Lei DIRECTOR OF RESEARCH AND DEVELOPMENT, JOHN AsifC, JOHN TylerC, Jaz Castaneda,DIRECTOR OF RESEARCH AND DEVELOPMENT, Robert Huertas, DIRECTOR OF RESEARCH AND DEVELOPMENT, Vanessa Saleh, DIRECTOR OF RESEARCH AND DEVELOPMENT, Josefina Higgins, DIRECTOR OF RESEARCH AND DEVELOPMENT, Lissett Root, DIRECTOR OF RESEARCH AND DEVELOPMENT, Lu Cooley, DIRECTOR OF RESEARCH AND DEVELOPMENT [facility] IN-PATIENT SERVICE [facility] Progress Note 05/02/2024 12:23 PM Name: Francine Hobson Acct: [id number] Room: [facility] Day: 1 Admit Date: 05/01/2024 [...] She reports current drug use. Drug: Marijuana ([place]). Family History: History reviewed. No pertinent family [...] , PHART , PH , POCPCO2 , ZLD9AFH , PCO2 , POCPO2 , PO2ART , PO2 , POCHCO3 , MWO1QLL , HCO3 , NBEA , PBEA , BEART , BE , THGBART , THB , XBG8URX , AYEO3BFU , L6DJKCJF , O2SAT , FIO2 Lab Results Component [...] Hemant Katz Colorectal Surgery * Jodee Almeida [facility] - 05/01/2024 3:44 PM EDT [facility] Pharmacokinetic Monitoring Service - [...] 05/01/2024 3:43 PM documented [facility] NotePROCEDURE: CT GUIDEDPELVIC FLUID NEEDLE PLACEMENT/ASPIRATION MODERATE [...] and supervised by the attending with physician rvmb-qt-poka monitoring. Medications were provided and recorded by Radiology nurses. DOSE: DOSE/DLP: 351.91 mGy-cm Dose modulation, iterative reconstruction, and/or weight based adjustment of the mA/kV was utilized to reduce the radiation dose to as low as reasonably achievable. TECHNIQUE/PROCEDURE DETAILS: Informed consent was obtained after a detailed explanation of the procedure including risks. Lilburn protocol was followed. Sterile gown, masks, hats, and gloves utilized for maximal sterile barrier. The patient was placed in the prone position on the CT couch. A silo painter scan was performed of the pelvis. The previously identified pelvic fluid was re-identified, and contrast could still be seen within the rectum/sigmoid colon. Moderate conscious sedation was initiated. A site was selected for drainage in the left perirectal region using a transgluteal approach. The skin was prepped and draped in sterile manner, and 1% lidocaine was utilized for local anesthetic. A 5 Polish 9 Yueh needle sheath was advanced under [...] loss was minimal. COMPLICATIONS: None immediately apparent. [facility] RIS [id number] NotePROCEDURE: CT GUIDEDPELVIC FLUID NEEDLE PLACEMENT/ASPIRATION MODERATE [...] and supervised by the attending with physician gwfm-dm-rvxm monitoring. Medications were provided and recorded by Radiology nurses. DOSE: DOSE/DLP: 351.91 mGy-cm Dose modulation, iterative reconstruction, and/or weight based adjustment of the mA/kV was utilized to reduce the radiation dose to as low as reasonably achievable. TECHNIQUE/PROCEDURE DETAILS: Informed consent was obtained after a detailed explanation of the procedure including risks. Lilburn protocol was followed. Sterile gown, masks, hats, and gloves utilized for maximal sterile barrier. The patient was placed in the prone position on the CT couch. A silo painter scan was performed of the pelvis. The previously identified pelvic fluid was re-identified, and contrast could still be seen within the rectum/sigmoid colon. Moderate conscious sedation was initiated. A site was selected for drainage in the left perirectal region using a transgluteal approach. The skin was prepped and draped in sterile manner, and 1% lidocaine was utilized for local anesthetic. A 5 Polish 9 Yueh needle sheath was advanced under [...] by: Jose Manuel Torre MD 05/04/24 [facility] resultUniversity [facility] History of Present illness Narrative* Ami Jeter, BACKUP SAWYER-DIRECTOR OF RESEARCH AND DEVELOPMENT - 04/22/2024 4:05 PM EDT Subjective: Patient [...] Past Medical History: Diagnosis Date Crohn's disease ([facility]) History reviewed. No pertinent surgical history. Social [...] or her pain worsens she should [facility] ER immediately for further evaluation and treatment [...] DAGOBERTO Hill 04/22/24 1705 documented in [facility]Tr[facility] Instructions* Patient Instructions* DAGOBERTO Hill - 04/22/2024 [...] Everywhere. * Bacterial Upper Respiratory Infection, Adult ([place]) documented in this encounterTrumbull [facility]05-20-2024 Hospital Discharge instructions* Discharge Instructions* Porfirio Cervantes [...] prescribed. Schedule a follow-up appointment with your machine silver stripper for further evaluation and treatment of your [...] MENTAL STATUS:} IV Access: { WEN IV ACCESS:830369889} Nursing Mobility/ADLs: Walking {CHP DME ADLs:036154707} Transfer {CHP DME ADLs:231854800} Bathing {CHP DME ADLs:071045980} Dressing {CHP DME ADLs:656432889} Toileting {CHP DME ADLs:378100714} Feeding {CHP DME ADLs:069790899} Motorcycle Mechanic Apprentice {CHP DME ADLs:513271608} Med Delivery { WEN MED Delivery:018041492} Wound Care Documentation and Therapy: Elimination: Continence: Bowel: {YES / NO:} Bladder: {YES / NO:} Urinary Catheter: {Urinary Catheter:327882842} Colostomy/Ileostomy/Ileal Conduit: {YES / NO:} Date of Last BM: No intake or output data in the 24 hours ending 11/22/23 0751 No intake/output data recorded. Safety Concerns: { WEN Safety Concerns:213553384} Impairments/Disabilities: { WEN Impairments/Disabilities:047655031} Nutrition Therapy: Current Nutrition Therapy: { WEN Diet List:932909312} Routes of Feeding: {[facility] DME Other Feedings:819233292} Liquids: {Utilization Review Rn liquid thickness:56685} Daily Fluid Restriction: {CHP DME Yes amt example:200770332} Last Modified Barium Swallow with Video (Video Swallowing Test): {Done Not Done Date:} Treatments at the Time of Hospital Discharge: Respiratory Treatments: Oxygen Therapy: {Therapy; copd oxygen:38576} Ventilator: { CC Vent List:519834437} Rehab Therapies: {THERAPEUTIC INTERVENTION:9869690774} Weight Bearing Status/Restrictions: {[facility] Weight Bearin} Other Medical Equipment (for information only, NOT a DME order): {EQUIPMENT:429717074} Other Treatments: Patient's personal belongings (please select all that are sent with patient): {[facility] DME Belongings:343198967} RN SIGNATURE: {Esignature:181470199} CASE MANAGEMENT/SOCIAL WORK SECTION Inpatient Status Date: Readmission Risk Assessment Score: Readmission Risk Risk of Unplanned Readmission: 0 Discharging to Facility/ Agency Name: Address: Phone: Fax: Dialysis Facility (if applicable) Name: Address: Dialysis Schedule: Phone: Fax: Crab Picker/Recruiter Account Manager signature: {Esignature:740956973} PHYSICIAN SECTION Prognosis: {Prognosis:7401523390} Condition at Discharge: { Patient Condition:070857107} Rehab Potential (if transferring to Rehab): {Prognosis:6436135344} Recommended Labs or Other Treatments After Discharge: Physician Certification: I certify the above information and transfer of Francine Hobson is necessary for the continuing treatment of the diagnosis listed and that she requires {Admit to Appropriate Level of Care:26166} for {GREATER/LESS:950606059} 30 days. Update Admission H&P: {CHP DME Changes in HandP:213377754} PHYSICIAN SIGNATURE: {Esignature:740191464} documented in this encounterB[facility] History of Present illness Narrative* Marixa Barrientos, BACKUP SAWYER-DIRECTOR OF RESEARCH AND DEVELOPMENT - 08/18/2023 4:35 PM EST Subjective: Patient [...] Past Medical History: Diagnosis Date Crohn's disease ([facility]) History reviewed. No pertinent surgical history. Social [...] you individually. If you have been recommended incz-rlm-qqikbes medications please use those medications as indicated [...] DAGOBERTO Mackenzie 08/18/23 1837 documented in this encounterCommunity Regional Medical CenterManthan Systems [id number] Instructions* Patient Instructions* DAGOBERTO aMckenzie - 08/18/2023 4:35 PM EST Please consider [...] you individually. If you have been recommended ccor-rpr-gtfvqwl medications please use those medications as indicated on their packaging detail. * Attachments The following attachments cannot be sent through Care Everywhere. * Epidermal Cyst Discharge Instructions ([place]ian) documented in this encounterCommunity Regional Medical CenterEasydiagnosis [facility] HospitalLflobm16-16-1453 Evaluation note* Encounter Date Diagnosis Assessment Notes [...] infection (ICD-10 - B37.9)antibiotic induced yeast infection [facility] Other 11-09-2023 Evaluation note* Encounter Date Diagnosis Assessment Notes Treatment Notes Treatment Clinical Notes May, Crohn disease (ICD-10 - K50.90) PATIENT HAS RECENTLY STARTED RINVOQ. SHE HAS FINISHED HER 8 WEEK STARTER DOSE AND IS NOW ON THE MAINTANCE DOSE. [facility] Other 11-01-2023 Evaluation note* Encounter Date Diagnosis Assessment Notes Treatment Notes Treatment Clinical Notes May, UTI (urinary tract infection) (I CD-10 - N39.0) UA consistent with UTI, will treat with oral antibiotic. Will send culture and adjust abx as necessary. To follow up if no improvement or worsening symptoms. [facility] Other 10-06-2023 Evaluation note* Encounter Date Diagnosis [...] with esophagitis without hemorrhage (ICD-10 - K21.00) [facility] Other 09-05-2023 Evaluation note* Encounter Date Diagnosis Assessment Notes Treatment Notes Treatment Clinical Notes Mar, Crohn disease (ICD-10 - K50.90) [facility] Other 08-23-2023 Evaluation note* Encounter Date Diagnosis [...] as documented in the electronic medical record. [facility] Other 08-22-2023 Evaluation note* Encounter Date Diagnosis [...] GI sooner. She agrees with plan today. [facility] Other 07-03-2023 Evaluation note* Encounter Date Diagnosis Assessment Notes Treatment Notes Treatment Clinical Notes Jan, Major depression (ICD-10 - F32.9 ) [facility] Other 06-29-2023 [facility]* Encounter Date Diagnosis Assessment Notes [...] (ICD-10 - R63.4) Dec,iarrhea (ICD-10 - R19.7) [facility] Other 06-21-2023 Evaluation note* Encounter Date Diagnosis Assessment Notes Treatment Notes Treatment Clinical Notes Dec, Crohn disease (ICD-10 - K50.90) [facility] Other 06-14-2023 Evaluation note* Encounter Date Diagnosis [...] finger injury. She had x-rays done at [place] which are unavailable for review but she [...] as documented in the electronic medical record. [facility] Other 06-05-2023 Evaluation note* Encounter Date Diagnosis [...] symptoms at f/u appt in 6 weeks [facility] Other 04-04-2023 NoteOPERATIVE NOTE OPERATION DATE: 10/06/2022 [...] to the recovery room in good condition.[facility] HospitalAmohmtja76-55-9288 History of Present illness Narrative* Francine Guzman MSW - 11/19/2020 10:04 AM EDT [facility] f/u call to pt re: last [...] this BHP or PCP. documented in this [id number] History of Present illness Narrative* Abdiel Smith MD - 10/30/2020 6:03 PM EDT * Francine Guzman MSW - 10/30/2020 4:06 PM EDT Subsequent Month for Francine Hobson participation in the Behavioral Health Integration Program. Dx: anxiety; depression, unspecified Met face to face with them to discuss their anxiety and depression. Francine Hobson is focused on coping skills and emotional regulation. Psychiatric Animal Doctor reviewed the chart with recommendations. Total minutes spent this month: 58 documented in this encounterOhioHealthEvaluation + Plan note No data available for this section [facility] Evaluation note* Diagnosis Crohn's disease of small intestine without complication (HCC)- Primary documented in this encounter [facility] note* Diagnosis Anxiety- Primary Anxiety state, unspecified Depression, unspecified depression type documented in this encounter [facility] noteNo assessment information [facility] Work Phone: Evaluation noteNoC7 [employer] Centers Other Evaluation noteNo InformationNoBitLeap Vet[employer] Other Evaluation note* Diagnosis Crohn's disease with complication, unspecified gastrointestinal tract location (HCC)- Primary documented in this encounter [facility] note* Diagnosis Intra-abdominal abscess (HCC)- Primary Peritoneal [...] with complication (HCC) documented in this encounter [facility] note* Diagnosis Crohn's colitis, unspecified complication (HCC)- [...] C-reactive protein (CRP) documented in this encounter [facility] note* Diagnosis Partial small bowel obstruction (HCC)- [...] difficulties and mismanagement [facility] Diagnosis Infected cyst of skin- Primary [facility] Diagnosis Acute cough- Primary Upper respiratory tract infection, unspecified type Acute cough [facility] Diagnosis Partial small bowel obstruction [...] influencing health status [facility]* Diagnosis Partial small bowel obstruction (HCC)- [...] upper extremity (HCC) [facility]* Diagnosis Partial small bowel obstruction (HCC)- [...] colon in continuity [facility] Diagnosis Partial small bowel obstruction [...] encounter (HCC)- Primary [facility]* Diagnosis Partial small bowel obstruction (HCC)- [...] with large intestine [facility] Diagnosis Partial small bowel obstruction [...] appliance and device [facility] Diagnosis Partial small bowel obstruction [...] of brachial vein of right upper extremity ([facility]) Anticoagulation management encounter Encounter for therapeutic drug monitoring Feeding difficulties- Primary Feeding difficulties and mismanagement [facility] Diagnosis Partial small bowel obstruction [...] difficulties and mismanagement [facility] Diagnosis Partial small bowel obstruction [...] upper extremity (HCC) [facility]* Diagnosis Partial small bowel obstruction (HCC)- [...] complication (HCC)- Primary [facility]* Diagnosis Partial small bowel obstruction (HCC)- [...] upper extremity (HCC) [facility] Diagnosis Partial small bowel obstruction [...] involving digestive system documented [facility]* Diagnosis Partial small bowel obstruction (HCC)- [...] complication (HCC)- Primary [facility]* Diagnosis Partial small bowel obstruction (HCC)- [...] appliance and device [facility] Partial small bowel obstruction [...] with complication (HCC) [facility] Diagnosis Partial small bowel obstruction (HCC)- [...] and 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)(female) [facility] Diagnosis Partial small bowel obstruction (HCC)- [...] with complication (HCC) [facility] Diagnosis Partial small bowel obstruction [...] with complication (HCC) [facility] Diagnosis Partial small bowel obstruction [...] unspecified genitourinary condition [facility] Diagnosis Partial small bowel obstruction [...] with complication (HCC) [facility] Diagnosis Partial small bowel obstruction [...] with complication (HCC) [facility] Diagnosis Partial small bowel obstruction [...] with complication (HCC) [facility] Diagnosis Partial small bowel obstruction [...] with complication (HCC) [facility] Diagnosis Partial small bowel obstruction [...] with complication (HCC) [facility] Diagnosis Partial small bowel obstruction [...] with complication (HCC) [facility] Diagnosis Partial small bowel obstruction (HCC)- [...] with complication (HCC) [facility] Diagnosis Partial small bowel obstruction (HCC)- [...] with complication (HCC) [facility] Diagnosis Partial small bowel obstruction [...] with complication (HCC) [facility] Diagnosis Partial small bowel obstruction (HCC)- [...] with complication (HCC) [facility] Diagnosis Partial small bowel obstruction (HCC)- [...] with complication (HCC) [facility] Diagnosis Partial small bowel obstruction [...] with complication (HCC) [facility] Diagnosis Partial small bowel obstruction (HCC)- [...] with complication (HCC) [facility] Diagnosis Partial small bowel obstruction (HCC)- [...] with complication (HCC) [facility] Diagnosis Partial small bowel obstruction (HCC)- [...] with complication (HCC) [facility] Diagnosis Partial small bowel obstruction [...] with complication (HCC) [facility] Diagnosis Partial small bowel obstruction (HCC)- [...] with complication (HCC) [facility] Diagnosis Partial small bowel obstruction (HCC)- [...] with complication (HCC) [facility] Diagnosis Partial small bowel obstruction [...] with complication (HCC) [facility] Diagnosis Partial small bowel obstruction [...] with complication (HCC) [facility] Diagnosis Partial small bowel obstruction [...] with complication (HCC) [facility] Diagnosis Partial small bowel obstruction (HCC)- [...] with complication (HCC) documented in this encounter [facility] note* Diagnosis Partial small bowel obstruction [...] with large intestine [facility] Diagnosis Partial small bowel obstruction [...] Leukocytosis, unspecified type [facility] Diagnosis Partial small bowel obstruction [...] unspecified constipation type [facility] Diagnosis Partial small bowel obstruction [...] of brachial vein of right upper extremity ([facility]) Anticoagulation management encounter Encounter for therapeutic drug [...] therapeutic drug monitoring [facility] Diagnosis Partial small bowel obstruction [...] Leukocytosis, unspecified type [facility] Diagnosis Partial small bowel obstruction [...] location (HCC)- Primary [facility] Diagnosis Partial small bowel obstruction (HCC)- [...] unspecified type- Primary [facility] Diagnosis Partial small bowel obstruction [...] (HCC) Other fatigue [facility] Diagnosis Partial small bowel obstruction [...] esophagitis Esophageal reflux [facility] Author [facility] December 31, 2022 1:56pmNote Date/TimeJune 2022 1:56pm[place] [address] Gastroenterology H&P Signed Patient: Francine Hobson MR#: [id number] : 1985 Acct:[id number] Age/Sex: 37 / F Adm Date: 3 Loc: Room: Type: [facility] Attending Dr: Jennifer Brody MD Copies to: [...] M.D. Documented By: Jennifer Brody MD 12/31/22 6311 Signed By: <Electronically signed by Jennifer Brody MD> 12/31/22 7666 [facility] Work Phone: History general Narrative - Reported* Type Description Date Medical History Crohn's disease Medical HistorydepressionMedical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 any use of the information to criminally investigate or prosecute any alcohol or drug abuse patient.[facility]In the event this information is protected by the Federal Confidentiality of Alcohol and Drug Abuse Patient Records regulations: The Federal rules restrict any use of the information to criminally investigate or prosecute any alcohol or drug abuse patient.[facility]In the event this information is protected by the Federal Confidentiality of Alcohol and Drug Abuse Patient Records regulations: The Federal rules restrict any use of the information to criminally investigate or prosecute any alcohol or drug abuse patient.[facility]In the event this information is protected by the Federal Confidentiality of Alcohol and Drug Abuse Patient Records regulations: The Federal rules restrict any use of the information to criminally investigate or prosecute any alcohol or drug abuse patient.[facility]In the event this information is protected by the Federal Confidentiality of Alcohol and Drug Abuse Patient Records regulations: The Federal rules restrict any use of the information to criminally investigate or prosecute any alcohol or drug abuse patient.[facility]In the event this information is protected by the Federal Confidentiality of Alcohol and Drug Abuse Patient Records regulations: The Federal rules restrict any use of the information to criminally investigate or prosecute any alcohol or drug abuse patient.[facility]In the event this information is protected by the Federal Confidentiality of Alcohol and Drug Abuse Patient Records regulations: The Federal rules restrict any use of the information to criminally investigate or prosecute any alcohol or drug abuse patient.[facility]In the event this information is protected by the Federal Confidentiality of Alcohol and Drug Abuse Patient Records regulations: The Federal rules restrict any use of the information to criminally investigate or prosecute any alcohol or drug abuse patient.[facility]In the event this information is protected by the Federal Confidentiality of Alcohol and Drug Abuse Patient Records regulations: The Federal rules restrict any use of the information to criminally investigate or prosecute any alcohol or drug abuse patient.[facility]In the event this information is protected by the Federal Confidentiality of Alcohol and Drug Abuse Patient Records regulations: The Federal rules restrict any use of the information to criminally investigate or prosecute any alcohol or drug abuse patient.[facility]In the event this information is protected by the Federal Confidentiality of Alcohol and Drug Abuse Patient Records regulations: The Federal rules restrict any use of the information to criminally investigate or prosecute any alcohol or drug abuse patient.[facility]In the event this information is protected by the Federal Confidentiality of Alcohol and Drug Abuse Patient Records regulations: The Federal rules restrict any use of the information to criminally investigate or prosecute any alcohol or drug abuse patient.[facility]In the event this information is protected by the Federal Confidentiality of Alcohol and Drug Abuse Patient Records regulations: The Federal rules restrict any use of the information to criminally investigate or prosecute any alcohol or drug abuse patient.[facility]In the event this information is protected by the Federal Confidentiality of Alcohol and Drug Abuse Patient Records regulations: The Federal rules restrict any use of the information to criminally investigate or prosecute any alcohol or drug abuse patient.[facility]In the event this information is protected by the Federal Confidentiality of Alcohol and Drug Abuse Patient Records regulations: The Federal rules restrict any use of the information to criminally investigate or prosecute any alcohol or drug abuse patient.[facility]In the event this information is protected by the Federal Confidentiality of Alcohol and Drug Abuse Patient Records regulations: The Federal rules restrict any use of the information to criminally investigate or prosecute any alcohol or drug abuse patient.[facility]In the event this information is protected by the Federal Confidentiality of Alcohol and Drug Abuse Patient Records regulations: The Federal rules restrict any use of the information to criminally investigate or prosecute any alcohol or drug abuse patient.[facility]In the event this information is protected by the Federal Confidentiality of Alcohol and Drug Abuse Patient Records regulations: The Federal rules restrict any use of the information to criminally investigate or prosecute any alcohol or drug abuse patient.[facility]In the event this information is protected by the Federal Confidentiality of Alcohol and Drug Abuse Patient Records regulations: The Federal rules restrict any use of the information to criminally investigate or prosecute any alcohol or drug abuse patient.[facility]In the event this information is protected by the Federal Confidentiality of Alcohol and Drug Abuse Patient Records regulations: The Federal rules restrict any use of the information to criminally investigate or prosecute any alcohol or drug abuse patient.[facility]In the event this information is protected by the Federal Confidentiality of Alcohol and Drug Abuse Patient Records regulations: The Federal rules restrict any use of the information to criminally investigate or prosecute any alcohol or drug abuse patient.[facility]In the event this information is protected by the Federal Confidentiality of Alcohol and Drug Abuse Patient Records regulations: The Federal rules restrict any use of the information to criminally investigate or prosecute any alcohol or drug abuse patient.[facility]In the event this information is protected by the Federal Confidentiality of Alcohol and Drug Abuse Patient Records regulations: The Federal rules restrict any use of the information to criminally investigate or prosecute any alcohol or drug abuse patient.[facility]In the event this information is protected by the Federal Confidentiality of Alcohol and Drug Abuse Patient Records regulations: The Federal rules restrict any use of the information to criminally investigate or prosecute any alcohol or drug abuse patient.[facility]In the event this information is protected by the Federal Confidentiality of Alcohol and Drug Abuse Patient Records regulations: The Federal rules restrict any use of the information to criminally investigate or prosecute any alcohol or drug abuse patient.[facility]In the event this information is protected by the Federal Confidentiality of Alcohol and Drug Abuse Patient Records regulations: The Federal rules restrict any use of the information to criminally investigate or prosecute any alcohol or drug abuse patient.[facility]In the event this information is protected by the Federal Confidentiality of Alcohol and Drug Abuse Patient Records regulations: The Federal rules restrict any use of the information to criminally investigate or prosecute any alcohol or drug abuse patient.[facility]In the event this information is protected by the Federal Confidentiality of Alcohol and Drug Abuse Patient Records regulations: The Federal rules restrict any use of the information to criminally investigate or prosecute any alcohol or drug abuse patient.[facility]In the event this information is protected by the Federal Confidentiality of Alcohol and Drug Abuse Patient Records regulations: The Federal rules restrict any use of the information to criminally investigate or prosecute any alcohol or drug abuse patient.[facility]In the event this information is protected by the Federal Confidentiality of Alcohol and Drug Abuse Patient Records regulations: The Federal rules restrict any use of the information to criminally investigate or prosecute any alcohol or drug abuse patient.[facility]In the event this information is protected by the Federal Confidentiality of Alcohol and Drug Abuse Patient Records regulations: The Federal rules restrict any use of the information to criminally investigate or prosecute any alcohol or drug abuse patient.[facility]In the event this information is protected by the Federal Confidentiality of Alcohol and Drug Abuse Patient Records regulations: The Federal rules restrict any use of the information to criminally investigate or prosecute any alcohol or drug abuse patient.[facility]In the event this information is protected by the Federal Confidentiality of Alcohol and Drug Abuse Patient Records regulations: The Federal rules restrict any use of the information to criminally investigate or prosecute any alcohol or drug abuse patient.[facility]In the event this information is protected by the Federal Confidentiality of Alcohol and Drug Abuse Patient Records regulations: The Federal rules restrict any use of the information to criminally investigate or prosecute any alcohol or drug abuse patient.[facility]In the event this information is protected by the Federal Confidentiality of Alcohol and Drug Abuse Patient Records regulations: The Federal rules restrict any use of the information to criminally investigate or prosecute any alcohol or drug abuse patient.[facility]In the event this information is protected by the Federal Confidentiality of Alcohol and Drug Abuse Patient Records regulations: The Federal rules restrict any use of the information to criminally investigate or prosecute any alcohol or drug abuse patient.[facility]In the event this information is protected by the Federal Confidentiality of Alcohol and Drug Abuse Patient Records regulations: The Federal rules restrict any use of the information to criminally investigate or prosecute any alcohol or drug abuse patient.[facility]In the event this information is protected by the Federal Confidentiality of Alcohol and Drug Abuse Patient Records regulations: The Federal rules restrict any use of the information to criminally investigate or prosecute any alcohol or drug abuse patient.[facility]In the event this information is protected by the Federal Confidentiality of Alcohol and Drug Abuse Patient Records regulations: The Federal rules restrict any use of the information to criminally investigate or prosecute any alcohol or drug abuse patient.[facility] FOR RECORDS PERTAINING TO PATIENTS WHO [...] BE BASED ON THE PRIMARY CLINICAL RECORDS. [facility] [employer]. provides no warranty or guarantee of the accuracy or completeness of information in this document.
[2025-07-02 12:49] LABS: Hematocrit 38.0 % (36.0-48.0); Hemoglobin 11.6 g/dL (12.0-16.0); Mean Corpuscular HGB Conc 30.5 g/dL (29.9-35.2); Mean Corpuscular Hemoglobin 31.4 pg (26.7-34.0); Mean Corpuscular Volume 103.0 fL (81.0-99.0); Platelet Count 145 10^3/uL (150-450); Red Blood Count 3.69 10^6/uL (4.20-5.40); White Blood Count 5.0 10^3/uL (4.0-11.0)
[2025-07-02 13:22] LABS: Alanine Aminotransferase 30 U/L (14-59); Albumin Globulin Ratio 1.0; Albumin Level 3.4 g/dL (3.4-5.0); Alkaline Phosphatase 74 U/L (46-116); Anion Gap 11.7; Aspartate Amino Transferase 17 U/L (15-37); Blood Urea Nitrogen 10.0 mg/dL (7.0-18.0); Calcium 8.5 mg/dL (8.5-10.1); Carbon Dioxide 27.4 mmol/L (21.0-32.0); Chloride 104 mmol/L (98-107); Estimated GFR (African America >60 (>=60 mL/min/1.73m^2); Estimated GFR (Non-African Ame >60 (>=60 mL/min/1.73m^2); Globulin 3.5 g/dL; Glucose 103 mg/dL (74-106); Magnesium 2.0 mg/dL (1.8-2.4); Potassium 4.1 mmol/L (3.5-5.1); Sodium 139 mmol/L (136-145); Total Protein 6.9 g/dL (6.4-8.2)
--- OUTSIDE RECORDS SUMMARY | 2025-08-07 19:00 | XMS_ITS | Clinical Summary ---
Author Organization Unknown Care Team Providers Care Heel Cover Softener Name Role Phone TRAMAINE TYLERYONATHAN Unavailable Unavailable ANDERSON RN, YANICK Unavailable Unavailable STEVEN ALAN, ELLIOTT Unavailable Unavailoksana MARTINEZ RN, YONI Unavailable Unavailable CATIA RN, KANE Unavailable Unavailable Payers Payer Name Policy Type Policy Number Effective Date Expira tion Date [facility] [id number] Problems Condition Name Condition Details Condition Category Status Onset Date Resolution Date Last Treatment Date Treating Clinician Comments MILD PROTEIN-CALORIE MALNUTRITION Hnkztj2536-63-74 00: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 JMRQOECAHIRHNanvze2452-09-43 00:00: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 Ordering Clinician Indication Dosage Frequency Signature (SIG) Comments Components acetaminophen 650 mg/20.3 mL oral soluti on 2025-04-11 00:00:[id number] NEEDED FOR MILD TO MODERATE PAIN20.3 mLEVERY 6 HOURS20.3 mL EVERY 6 HOURS (route: oral)Med Classification: Analgesic, Anti- inflammatory or Antipyreticamitriptyline 25 mg hizvis1755-84-56 00:00:00Yes [id number] ANXIETY1 tabletEVERY PM1 tablet EVERY PM (route: oral)Med Classification: Central Nervous System Agentscholecalciferol (vitamin D3) 25 mcg (1,000 unit) xkpcwxp2143-44-89 00:00:[id number] capsuleDAILY1 capsule DAILY (route: oral)Med Classification: Electrolyte Balance-Nutritional Productscitalopram 40 mg hnglbv7938-48-69 00:00:[id number] tabletDAILY1 tablet DAILY (route: oral)Med Classification: Central Nervous System Agentsdicyclomine 10 mg udjktsu9709-37-64 00:00:[id number] CRAMPING1 capsule3 TIMES DAILY1 capsule 3 TIMES DAILY (route: oral)Med Classification: Gastrointestinal Therapy Agentsenoxaparin 100 mg/mL subcutaneous bqwsrdx7958-24-67 00:00:[id number] THINNER0.975 mLDAILY0.975 mL DAILY (route: subcutaneous)Med Classification: Hematological Agentshydroxyzine HCl 25 mg ycuyek0719-37-87 00:00:[id number] NEEDED FOR ANXIETY1 tablet3 TIMES DAILY1 tablet 3 TIMES DAILY (route: oral)Med Classification: Central Nervous System AgentsInfuvite Adult (Vial 1) 3,300 unit-150 mcg/5 mL intravenous mgpehgug3586-70-85 00:00: 23:59:[id number] instructionsDAILYPer instructions DAILY (route: intravenous)Med Classification: Electrolyte Balance-Nutritional ProductsInfuvite Adult (Vial 2) 600 mcg-60 mcg-5 mcg/5 mL intravenous ksxmaeac0301-49-35 00:00: 23:59:[id number] NUTRITIONPer instructionsDAILYPer instructions DAILY (route: intravenous)Med Classification: Electrolyte Balance-Nutritional ProductsNormal Saline Flush 0.9 % injection uueomwi6460-89-28 00:00: 23:59:[id number] eZQDPMT01 mL DAILY (route: injection)Med Classification: Electrolyte Balance- Nutritional Productsondansetron 4 mg disintegrating laxght4157-98-79 00:00:00Yes [id number] NEEDED FOR NAUSEA AND VOMITING1 tabletEVERY 12 HOURS1 tablet EVERY 12 HOURS (route: oral)Med Classification: Gastrointestinal Therapy Agents promethazine 25 mg unfiyk9004-04-03 00:00:[id number] NEEDED FOR NAUSEA AND VOMITING 2ND LINE1 tabletEVERY 6 HOURS1 tablet EVERY 6 HOURS (route: oral) Med Classification: Respiratory Therapy AgentsProtonix 40 mg tablet,delayed jqbrtuc7275-26-73 00:00:[id number] tabletDAILY1 tablet DAILY (route: oral)Med Classification: Gastrointestinal Therapy Agentssimethicone 125 mg chewable pxewat1270-96-61 00:00:[id number] NEEDED FOR FLATULENCE1 tablet EVERY 6 HOURS1 tablet EVERY 6 HOURS (route: oral)Med Classification: Gastrointestinal Therapy AgentsSkyrizi 360 mg/2.4 mL (150 mg/mL) subcutaneous wearable hbakgaqz3797-71-45 00:00:[id number] mgAS XVMLLXJS590 mg DIRECTED (route: subcutaneous)Med Classification: Gastrointestinal Therapy AgentsTPN Electrolytes 35 mEq-20 mEq-5 mEq/20 mL intravenous edydcuvy6242-83-38 00:00:801927-82-16 23:59:[id number] pYZMPDH0419 mL DAILY (route: intravenous)Med Classification: Electrolyte Balance-Nutritional Products Fiber (psyllium husk) 0.4 gram lwrhbea6189-79-97 00:00:[id number] capsuleDAILY1 capsule DAILY (route: oral)Med Classification: Gastrointestinal Therapy Agentssodium chloride 0.45 % intravenous ybicydkr1046-71-43 00:00:2025-06-07 23:59:[id number] oXYUGXVR8602 mL WEEKLY (route: intravenous)Med Classification: Electrolyte Balance-Nutritional ProductsTPN Electrolytes 35 mEq-20 mEq-5 mEq/20 mL intravenous ubagrysi6290-27-28 00:00:2025-06-07 23:59:[id number] mLAS KAWKPIUH6186 mL DIRECTED (route: intravenous)Med Classification: Electrolyte Balance-Nutritional Products sodium chloride 0.45 % intravenous xwxytrvf6424-19-07 00:00:[id number] MUSXHREEO6068 mL3 TIMES A YTFX5704 mL 3 TIMES A WEEK (route: intravenous)Med Classification: Electrolyte Balance-Nutritional ProductsTPN Electrolytes 35 mEq- 20 mEq-5 mEq/20 mL intravenous ktjrlsli6423-49-74 00:00:902636-89-98 23:59:00No [id number] instructions4 TIMES A WEEKPer instructions 4 TIMES A WEEK (route: intravenous)Med Classification: Electrolyte Balance-Nutritional Products Infuvite Adult (Vial 1) 3,300 unit-150 mcg/5 mL intravenous xwlwutak2106-31-78 00:00:[id number] instructions4 TIMES A WEEKPer instructions 4 TIMES A WEEK (route: intravenous)Med Classification: Electrolyte Balance- Nutritional ProductsInfuvite Adult (Vial 2) 600 mcg-60 mcg-5 mcg/5 mL intravenous vxwexltv1837-21-93 00:00:[id number] instructions4 TIMES A WEEKPer instructions 4 TIMES A WEEK (route: intravenous)Med Classification: Electrolyte Balance-Nutritional ProductsNormal Saline Flush 0.9 % injection luvtmzy4718-60-25 00:00:[id number] IIUBQYD30 mLAS DIRECTED 10 mL DIRECTED (route: injection)Med Classification: Electrolyte Balance- Nutritional ProductsTPN Electrolytes 35 mEq-20 mEq-5 mEq/20 mL intravenous phhzamrf2843-05-51 00:00:[id number] instructions3 TIMES A WEEK Per instructions 3 TIMES A WEEK (route: intravenous)Med Classification: Electrolyte Balance-Nutritional Products Vital Signs Vital Name Observation Time Observation Value Commen ts Temperature 2025-06-25 14:15:00.000 98.1 [degF] Symnmaossln3333-33-77 10:09:00.56978.2 [degF]Gvryidojrua3742-58-74 10:54:00.000 98 [degF]Mdvuptirjcz8403-67-94 10:07:00.34242.9 [degF]Ofpkb9312-14-09 14:15:00.86473 /cihGpiiz0275-12-39 10:09:00.13050 /gewYrxil1179-05-77 10:54:00.41033 /vvcSirik0788-48-16 10:07:00.67907 /minO2 Saturation (%) 2025-06-25 14:15:00.09840 %O2 Saturation (%)2025-06-20 10:09:00.126584 %O2 Saturation (%)2025-06-18 10:54:00.75534 %O2 Saturation (%)2025-06-11 10:07:00.02580 %Ogoleasgvmkp8712-58-46 14:15:00.11777 /rzfPcyxkurmnhtk6836-18-11 10:09:00.03711 /arbSwxymmyfukjd6968-60-70 10:54:00.92832 /minRespirations 2025-06-11 10:07:00.09002 /minSystolic Blood Bdvhagbb6253-90-15 14:15:00.972267 mm[Hg]Systolic Blood Zpavjzet0523-05-67 10:09:00.179907 mm[Hg]Systolic Blood Feqvavrn2706-57-37 10:54:00.111310 mm[Hg]Systolic Blood Cnzpigyr8085-66-23 10:07:00.011763 mm[Hg]Diastolic Blood Ekiljsmq8340-18-46 14:15:00.51119 mm[Hg] Diastolic Blood Qoxupthk0248-06-26 10:09:00.05482 mm[Hg]Diastolic Blood Pressure 2025-06-18 10:54:00.13552 mm[Hg]Diastolic Blood Ktixkkic2716-78-89 10:07:00.000 62 mm[Hg] Plan of Treatment Planned [...] MALNUTRITION. FAX RESULTS TO DR YONATHAN REDD [phone] AND [facility] [phone]. [code = SKILLED NURSE TO OBTAIN BLOOD [...] MALNUTRITION. FAX RESULTS TO DR YONATHAN REDD [phone] AND [facility] [phone].]Future Scheduled TestSKILLED NURSE TO PROVIDE AND INSTRUCT [...] CHANGE IN CONDITION (SCIC)AND DISCHARGE. HOME HEALTH BICYCLE MESSENGER MAY PROVIDE CARE RECOMMENDATIONS NEEDED ON NEW,EXISTING [...] IN CONDITION (SCIC) AND DISCHARGE. HOME HEALTH BICYCLE MESSENGER MAY PROVIDE CARE RECOMMENDATIONS NEEDED ON NEW, EXISTING OR CHANGED WOUND OR INTEGUMENTARY CONDITIONS.]Lqcy2568-06-76Uuujptw Goal - NO HOSPITALIZATIONGoalPatient Goal - NO [...] ISITS BY 08/05/25.GoalProvider Goal -GoalProvider Goal - Encounters Start Date/Time End Date/Time Encounter Type Admission Type Attending [facility] Care Department Encounter ID Discharge Date Discharge Status Discharge Condition Discharge Reason Percent Goals Met 2025-06-10 00:00:00 2025-08-08 00:00:00 Outpatient KANE LOCKETT [id number]
== END 2025-07-02 12:17 | disposition home or self-care (01) ==
LOC: LAB 12:16
PROVIDERS: PCP Student in an Organized Health Care Education/Training Program; Visit Provider Student in an Organized Health Care Education/Training Program
DX: E44.1 Mild protein-calorie malnutrition (principal)
CPT/HCPCS: 36415; 80053; 83735; 84100; 85027